=== PATIENT | female | born 2000 | race Caucasian/White ===

== ENCOUNTER 2024-04-04 10:06 | Outpatient (OUT) | payer OTHER, SELFPAY ==
--- NOTE | 2024-04-04 10:21 | XR_ITS ---
[address] [address] Patient Name: CJ MAI MRN: [id number] date: 2000 Sex: F Assigned Patient Location: [facility] Current Patient Location: Accession/Order Number: [id number] Exam Date: 04/04/2024 10:26 Report Date: 04/05/2024 07:55 At the request of: JB MANDUJANO Procedure: XR chest 2V PROCEDURE: XR chest 2V DATE: 04/04/2024 9:26 AM CDT COMPARISONS: None. CLINICAL INDICATION: 23 years Female Positive QuantiFeron TB Test R76.12 FINDINGS: The cardiomediastinal silhouette and pulmonary vasculature are within normal limits. The lungs are clear. There is no evidence of pleural effusion or pneumothorax. XR/XR chest 2V IMPRESSION: Chest radiograph is within normal limits. Electronically authenticated by: ANNA CORTEZ Date: 04/05/2024 07:55
== END 2024-04-04 10:07 | disposition home or self-care (01) ==
LOC: RAD 10:14
PROVIDERS: PCP Family Medicine; Visit Provider Family Medicine
DX: R76.12 Nonspecific reaction to cell mediated immunity measurement of gamma interferon antigen response without active tuberculosis (principal)
CPT/HCPCS: 71046

== ENCOUNTER 2024-05-23 08:28 | Outpatient (OUT) | payer OTHER, SELFPAY ==
--- NOTE | 2024-05-23 08:30 | US_ITS ---
[address] [address] Patient Name: CJ MAI MRN: [id number] date: 2000 Sex: F Assigned Patient Location: [facility] Current Patient Location: Accession/Order Number: [id number] Exam Date: 05/23/2024 08:31 Report Date: 05/27/2024 04:15 At the request of: SHELBI WILLIAM Procedure: US OB transvaginal EXAMINATION: US OB transvaginal HISTORY: Missed menses COMPARISON: No relevant comparison available. FINDINGS: GESTATIONAL SAC: Present and normal appearing x2. YOLK SAC: Present and normal appearing x2. POLE: Present and normal appearing x2. CARDIAC: Present x2. UTERUS: Normal size and appearance. OVARIES: Right: Normal. Left: Normal. CERVIX: 4.0 cm in length and closed. CUL-DE-SAC: Normal. OTHER: None. AGE BY LMP: 8 weeks 6 days GUILLE BY LMP: 12/27/2024 AGE BY US CRL: 8 weeks 6 days x2 GUILLE BY US CRL: 12/27/2024 x2 US/US OB transvaginal IMPRESSION: 1. Diamniotic-dichorionic twin . 2. Estimated gestational age of baby A and baby B is 8 weeks 6 days. Electronically authenticated by: CHAN SMALL Date: 05/27/2024 04:15
== END 2024-05-23 08:29 | disposition home or self-care (01) ==
LOC: NOMS 08:29
PROVIDERS: PCP Family Medicine; Visit Provider Obstetrics & Gynecology
DX: O30.041 Twin pregnancy, dichorionic/diamniotic, first trimester (principal); Z3A.08 8 weeks gestation of pregnancy; N92.6 Irregular menstruation, unspecified
CPT/HCPCS: 76817

== ENCOUNTER 2024-05-24 07:59 | Outpatient (OUT) | payer OTHER, SELFPAY ==
--- OUTSIDE RECORDS SUMMARY | 2024-05-24 08:02 | XMS_ITS | CCD ---
Author Organization [facility] ion [facility] Care Team Providers Care Diamond Blender Name Role Phone Unavailable Primary Care Provider Unavailsoniya e Christina Pearce Unavailable Ok Mckeon Unavailable Ibis Renteria Unavailable [phone] Unavailable Unavailable CARLOS Renteria Primary Care Provider MD Melodie Alcaraz Attending Provider [phone] MD Álvaro Osborn Referring Provider CARLOS Davidson Attending Provider [phone] JOHNNY Pearce Emergency Provider Dr. Annalee Maza Attending Unavailab Dr. Melodie Dawson Referring Unavailable Blas, Ms. Ibis Winter Primary Care Unavail able Dr. Annalee Maza Admitting Unavailab le Unavailable Primary Care Provider Unavailabl e Unavailable Primary Care Provider Unavailsoniya Renteria, TIKA-Akila Winter Primary Care Provider JOHNNY Perez Attending Provider CHAN MUÑIZ Attending Unavailabl e IBIS RENTERIA Referring Unavailable IBIS RENTERIA Primary Care Unavailable IBIS RENTERIA Primary Care Unavailable SPRING UMAÑA Referring Unavailable CHAN MUÑIZ Attending UnavailCARLOS Littlejohn Primary Care Provider DO Carlitos Nguyen Jr Attending Provider Link, Dr. Annalee Torres Attending Unavailab le Link, Dr. Annalee Torres Referring Unavailab le Blas, Ms. Baumann Maggy Primary Care Unavail able Link, Dr. Annalee Torres Attending Unavailab le Link, Dr. Annalee Torres Referring Unavailab le Blas, Ms. Ibis Maggy Primary Care Unavail able Link, Dr. Annalee Torres Attending Unavailab le Alcaraz, Dr. Sewell Referring Unavailable Blas, MsJesika Baumann Maggy Primary Care Unavail able Alcaraz, Dr. Sewell Attending Unavailable Alcaraz, Dr. Sewell Referring Unavailable Blas, MsJesika Baumann Maggy Primary Care Unavail able Link, Dr. Annalee Torres Attending Unavailab le Link, Dr. Annalee Torres Referring Unavailab le Blas, Ms. Ibis Maggy Primary Care Unavail able Alcaraz, Dr. Sewell Attending Unavailable Alcaraz, Dr. Sewell Referring Unavailable Blas, . Ibis Maggy Primary Care Unavail able Tabatha Cota Attending Unavailable Alcaraz, Dr. Sewell Referring Unavailable Blas, Ms. Baumann Maggy Primary Care Unavail able Alcaraz, Dr. Sewell Attending Unavailable Alcaraz, Dr. Sewell Referring Unavailable Blas, Ms. Baumann Maggy Primary Care Unavail able JOSE ARMANDO GREY Attending Unavailable Blas Ibis GOODSON Primary Care Provider Blas, FREIGHT CONDUCTOR-C Ibis Winter Primary Care Provider DO Harsi Martino Emergency Provider DO Nam Barnes Attending Provider PerezChristina kong Admitting Unavailable Christina Perez Attending Unavailable Ibis Renteria Primary Care Unavailable Carlitos Nguyen Jr Admitting Unavailable Carlitos Nguyen Jr Attending Unavailable Ibis Renteria Primary Care Unavailable Nam Barnes Admitting Unavailable Nam Barnes Attending Unavailable Ibis Renteria Primary Care Unavailable Haris Martino Admitting Unavailable Haris Martino Attending Unavailable Ibis Renteria Primary Care Unavailable JB MANDUJANO Primary Care Physician Rinkes, Celeste Admitting Unavailable Rinkes, Celeste Attending Unavailable Jocelin FELIX Attending Unavailable Mae, ADMINISTRATIVE OPERATIONS COORDINATOR Krista L Attending Unavailable Mae, ADMINISTRATIVE OPERATIONS COORDINATOR Krista L Attending Unavailable Unavailable Primary Care Provider Unavailabl e JO, AURORA M Referring Unavailable SANTIAOG, AURORA M Referring Unavailable SANTIAGO, AURORA M Attending Unavailable GEMA, JYOTI Attending Unavailable SANTIAGO, AURORA M Referring Unavailable GEMA, JYOTI Attending Unavailable SANTIAGO, AURORA M Referring Unavailable Rinkes, Celeste Attending Unavailable Rinkes, Celeste Admitting Unavailable Rinkes, Celeste Attending Unavailable Rinkes, Celeste Admitting Unavailable Rinkes, Celeste Attending Unavailable Rinkes, Celeste Admitting Unavailable RINKES, CELESTE E Attending Unavailable RINKES, CELESTE E Attending Unavailable JB MANDUJANO Attending Unavailable JB MANDUJANO Attending Unavailable HEMCAMILLA MCKEON Attending Unavailable Allergies Allergy Classification Reported Allergen(s) Allergy Type Date of Onset Reaction(s) Facility Acetaminophen / oxyCODONE (1 source) Acetaminophen / oxyCODONE; Translations: [acetaminophen-o xycodone] Drug Allergy [facility] Comment on above: no narcotics, GI ups et Chlorhexidine (1 source) Chlorhexidine; Translations: [chlorhexidine topical] Drug Allergy Itching [facility] Corticosteroids (1 source) predniSONE; Translations: [prednisone] Drug Allergy [facility] (11 sources) Morphinan opioid; Translations: [OPIOIDS - MORPHINE ANALOGUES] Propensity to adverse reactions to drug Other: See Comments [facility] (20 sources) predniSONE; Translations: [predniSONE] Drug Allergy Other: See Comments [facility] (2 sources) prednisoLONE Drug Allergy passed out x 2 [employer] Other (15 sources) Fludrocortisone; Translations: [Florinef TABS] Drug Allergy Nausea [facility] 320 DO Work Phone: (7 sources) Midodrine; Translations: [midodrine] Drug Allergy Gatrointestinal upset [facility] 250 DO Work Phone: (1 source) predniSONE Drug Allergy 023 [facility] Repository (2 sources) Acetaminophen / oxyCODONE; Translations: [Percocet] Drug Allergy [facility] Repository (3 sources) Chlorhexidine; Translations: [chlorhexidine topical] Drug Allergy Itching [facility] Repository (1 source) Acetaminophen / oxyCODONE; Translations: [acetaminophen-o xycodone] Drug Allergy [facility] Comment on above: no narcotics, GI ups et Medications Current Medications Medication Drug Class(es) Dates Sig (Normalized) Sig (Original) [id number] 200 actuat albuterol 0.09 mg/actuat metered dose inhaler (6 sources) beta2-Adrenergic Agonist Start: 06-01-2022 take 2 puff(s) by inhalation every six hours as needed albuterol HFA (PROVENTIL HFA, VENTOLIN HFA) 90 mcg/actuation inhaler Inhale 2 Puffs as instructed every 6 hours as needed. 0 06/01/2022 Active Start: 06-01-2022 Albuterol Sulf ate HFA 108 (90 Base) MCG/ACT Inhalation Aerosol Solution Quantity: 8 Refills: 0 Ordered: 26-Jun-2022 DO Start : 01-Jun-2022 Active Comment on above: Inhale 2 Puffs as in structed every 6 hours as needed. Albuterol (Eqv-ProAir HFA) 90 mcg/inh inhalation aerosol (2 sources) Start: 4 take 2 puff(s) by inhalation every four hours Albuterol (Eqv-ProAir HFA) 90 mcg/inh inhalation aerosol 2 puff(s), Inhalation, q4hr, Refill(s) 0 Start Date: 12/11/23 Status: Ordered clomiPHENE citrate 50 mg oral tablet (1 source) Estrogen Agonist/Antagonist Start: 4 CLOMID 50 mg tablet 100 mg. 0 02/22/2024 Active Crutches Underarm Crutches (2 sources) Start: 2 Start: 10-10-2021 Crutches Under arm Crutches 1 pair diagnosis: left ankle sprain Sep, Active Ethinyl Estradiol / norelgestromin (2 sources) Progestin, Estrogen Ortho Evra A ctive Tollette (No Known Home Meds) (1 source) Start: 3 Tollette (No Known Home Meds) Active June 08, 2023 12:00am omeprazole 40 mg delayed release oral capsule (2 sources) Proton Pump Inhibitor Start: 4 take 1 capsule by mouth once daily omeprazole 40 mg Cap-DR 40 mg = 1 cap(s), Oral, Daily, # 30 cap(s), Refills(s) 1, Pharmacy: [facility], 168.3, cm, 12/11/23 13:07:00 EDT, Height/Length Dosing, 93.6, kg, 12/11/23 13:07:00 EDT, Weight Dosing Start Date: 12/11/23 Status: Ordered Completed/Discontinued Medications Medication Drug Class(es) Dates Sig (Normalized) Sig (Original) atenolol 25 mg oral tablet (10 sources) beta-Adrenergic Quentin Start: 07-10-2022 take 0.5 tablet by mouth once daily Atenolol 25 MG Oral Tablet TAKE 0.5 TABLET Daily Quantity: 45 Refills: 1 Ordered: 10-Jul-2022 Melodie Alcaraz MD Start : 10-Jul-2022 Active decreased dose Start: 05-18-2022 End: 06-08-2023 take 25 mg by mouth once daily Atenolol Discontinued 2 5 MG PO Daily June 01, 2022 12:00am June 08, 2023 4:31pm diclofenac sodium 75 mg delayed release oral tablet (3 sources) Nonsteroidal Anti-inflammatory Drug Start: 12-28-2022 End: 07-10-2023 take 1 tablet by mouth twice daily as needed diclofenac, EC, (VOLTAREN) 75 mg EC tablet One tab po bid prn 60 tablet 3 12/28/2022 07/10/2023 Discontinued Comment on above: One tab po bid prn droxidopa 100 mg oral capsule (12 sources) Start: 12-27-2022 End: 07-10-2023 droxidopa (NORTHERA) 100 mg capsule 100 mg three times daily. 0 12/27/2022 07/10/2023 Discontinued Start: 08-01-2022 take 1 capsule by mo [facility] three times daily Droxidopa 100 MG Oral Capsule TAKE 1 CAPSULE 3 times daily Quantity: 270 Refills: 3 Ordered: 13-Oct-2022 Annalee Maza MD Start : 01-Aug-2022 Active Comment on above: 100 mg three times d aily. Norgestimate-Ethiny l Estradiol (4 sources) Progestin, Estrogen Start: 06-01-2022 End: 06-08-2023 take 1 tablet by mouth once daily Norgestimate-Ethinyl Estradiol (Trisha) 0.25-35 mg-mcg tablet Discontinued 1 TAB PO Daily June 01, 2022 12:00am June 08, 2023 4:31pm Start: 06-01-2022 take 1 tablet by efrain once daily Norgestimate-Ethinyl Estradiol (Trisha) 0.25-35 mg-mcg tablet Active 1 TAB PO Daily June 01, 2022 12:00am fludrocortisone acetate 0.1 mg oral tablet (2 sources) Start: 06-15-2022 take 1 tablet by mouth once daily Fludrocortisone Acetate 0.1 MG Oral Tablet Take 1 tablet daily Quantity: 90 Refills: 3 Ordered: 15-Jun-2022 Melodie Alcaraz MD Start : 15-Jun-2022 Active new start 120 actuat fluticasone propionate 0.11 mg/actuat metered dose inhaler (4 sources) Corticosteroid Start: 06-01-2022 Flovent HFA 110 MCG/ACT Inhalation Aerosol Quantity: 12 Refills: 0 Ordered: 29-Jun-2022 DO Start : 01-Jun-2022 Active folic acid 1 mg oral tablet (4 sources) Start: 07-31-2022 End: 12-28-2022 take 1 tablet by mouth once daily folic acid 1 mg tablet Take 1 tablet by mouth once daily. 30 tablet 6 07/31/2022 12/28/2022 Discontinued Comment on above: Take 1 tablet by efrain once daily. hydroxychloroquine sulfate 200 mg oral tablet (6 sources) Antimalarial, Antirheumatic Agent Start: 02-02-2022 Hydroxychloroquine Sulfate 200 MG Oral Tablet Quantity: 60 Refills: 0 Ordered: 07-Mar-2022 DO Start : 02-Feb-2022 Active Start: 02-02-2022 End: 07-31-2022 take 1 tablet by mouth twice daily hydrOXYchloroQUINE (PLAQUENIL) 200 mg tablet Take 1 tablet by mouth twice daily. 60 tablet 3 02/02/2022 07/31/2022 Discontinued (Allergic response) Comment on above: Take 1 tablet by efrain th twice daily. magnesium oxide 400 mg oral tablet (1 source) Start: 3 take 1 tablet by mouth once daily Magnesium Oxide 400 MG Oral Tablet take 1 tablet by mouth once daily Quantity: 30 Refills: 6 Ordered: 13-Jun-2023 Tabatha Savage Start : 13-Jun-2023 Active methotrexate 2.5 mg oral tablet (4 sources) Folate Analog Metabolic Inhibitor Start: 2 take 6 tablets by mouth every week Methotrexate 2.5 MG Oral Tablet TAKE 6 TABLETS WEEKLY. Quantity: 0 Refills: 0 Ordered: 11-Sep-2022 DO Start : 11-Sep-2022 Active Start: 07-31-2022 End: 12-28-2022 take 4 tablets by mouth every week, then take 6 tablets by mouth every week methotrexate 2.5 mg tablet TAKE 4 TABS PO QWK FOR 2WKS THEN INCREASE TO 6 TABS PO QWK 25 tablet 2 07/31/2022 12/28/2022 Discontinued Comment on above: TAKE 4 TABS PO QWK F OR 2WKS THEN INCREASE TO 6 TABS PO QWK midodrine hydrochloride 5 mg oral tablet (13 sources) alpha-Adrenergic Agonist Start: 07-10-2022 Midodrine HCl - 5 MG Oral Tablet Quantity: 90 Refills: 0 Ordered: 06-Aug-2022 DO Start : 10-Jul-2022 Active Start: 07-10-2022 take 0.5 tablet by m out three times daily Midodrine HCl - 10 MG Oral Tablet TAKE 0.5 TABLET 3 TIMES DAILY Quantity: 135 Refills: 3 Ordered: 01-Aug-2022 Annalee Maza MD Start : 10-Jul-2022 Active Start: 07-10-2022 take 1 tablet by efrain th three times daily Midodrine HCl - 10 MG Oral Tablet TAKE 1 TABLET 3 TIMES DAILY. Quantity: 270 Refills: 3 Ordered: 21-Jul-2022 Annalee Maza MD Start : 17-Oct-2022 Active Dose increase Start: 07-10-2022 take 1 tablet by efrain th three times daily Midodrine HCl - 5 MG Oral Tablet TAKE 1 TABLET 3 TIMES DAILY. Quantity: 270 Refills: 3 Ordered: 10-Jul-2022 Melodie Alcaraz MD Start : 10-Jul-2022 Active stop tip Trisha 0.25-35 MG-MCG Oral Tablet (20 sources) take 1 tablet by mouth once daily Trisha 0.25-35 MG-MCG Oral Tablet TAKE 1 TABLET DAILY DIRECTED. Quantity: 0 Refills: 0 Ordered: 23-Mar-2022 DO Active montelukast 10 mg oral tablet (4 sources) Leukotriene Receptor Antagonist Start: 11-18-19 take 1 tablet by mouth once daily Montelukast Sodium 10 MG Oral Tablet TAKE 1 TABLET BY MOUTH EVERY DAY FOR 30 DAYS Quantity: 30 Refills: 0 Ordered: 14-Dec-2021 DO Start : 18-Nov-2021 Active prednisoLONE 5 mg oral tablet (3 sources) Corticosteroid End: 07-31-20 take 1 tablet by mouth once daily prednisoLONE (MILLIPRED DP) 5 mg (21 tabs) DsPk Take 5 mg by mouth once daily. 0 07/31/2022 Discontinued (Other) Comment on above: Take 5 mg by mouth o nce daily. triamcinolone acetonide 0.001 mg/mg topical ointment (4 sources) Corticosteroid Start: 11-30-19 Triamcinolone Acetonide 0.1 % External Ointment Quantity: 80 Refills: 0 Ordered: 29-Nov-2021 DO Start : 29-Nov-2021 Active Problems Active Problems Problem Classification Problem Date Documented Date Episodic/Chronic Administrative/socia l admission (20 sources) Follow-up status; Translations: [Other specified counseling] Episodic Asthma (16 sources) Mild intermittent asthma; Translations: [Asthma, unspecified type, unspecified] Chronic Cardiac dysrhythmias (20 sources) Ventricular premature beats; Translations: [Other premature beats] 11-30-2023 Chronic Cardiac dysrhythmias (20 sources) Palpitations; Translations: [Palpitations] 06-16-2023 Episodic Conduction disorders (2 sources) Unspecified right bundle-branch block; Translations: [Unspecified right bundle-branch block] Onset: 07-26-2022 Chronic Esophageal disorders (2 sources) Gastroesophageal reflux disease 12-11-2023 Chronic Influenza (4 sources) Influenza due to Influenza A virus; Translations: [Influenza due to other identified influenza virus with other respiratory manifestations] 06-01-2022 Episodic Joint disorders and dislocations; trauma-related (2 sources) Tear of medial meniscus of knee 07-26-2021 Episodic Nonspecific chest pain (20 sources) Atypical chest pain; Translations: [Other chest pain] Onset: 06-08-2023 06-16-2023 Episodic Osteoarthritis (1 source) Arthritis; Translations: [Unspecified osteoarthritis, unspecified site] Chronic Other aftercare (16 sources) Treatment changed; Translations: [Long-term (current) use of other medications] Episodic Other circulatory disease (18 sources) Low blood pressure; Translations: [Hypotension, unspecified] Episodic Other circulatory disease (17 sources) Orthostatic hypotension; Translations: [Orthostatic hypotension] 11-12-2023 Episodic Other connective tissue disease (2 sources) Tendinitis of right posterior tibial tendon; Translations: [Posterior tibial tendinitis, right leg] Episodic Other connective tissue disease (1 source) Disorder of tendon; Translations: [Unspecified disorder of synovium and tendon, unspecified thigh] 07-10-2023 Episodic Other connective tissue disease (1 source) Unspecified disorder of synovium and tendon, unspecified thigh; Translations: [Tendinopathy of gluteal region] Onset: 07-10-2023 Episodic Other infections; including parasitic (20 sources) Personal history of other infectious and parasitic diseases; Translations: [Personal history of COVID-19] Episodic Other lower respiratory disease (20 sources) Dyspnea; Translations: [Other respiratory abnormalities] Episodic Other nervous system disorders (1 source) Other chronic pain; Translations: [Chronic pain of right knee] Onset: 07-10-2023 Chronic Other non-traumatic joint disorders (6 sources) Pain in right knee; Translations: [Pain in joint, lower leg] Onset: 07-10-2023 Episodic Other non-traumatic joint disorders (3 sources) Joint stiffness; Translations: [Stiffness of unspecified joint, not elsewhere classified] Episodic Other nutritional; endocrine; and metabolic disorders (20 sources) Obesity; Translations: [Obesity, unspecified] Chronic Other screening for suspected conditions (not mental disorders or infectious disease) (20 sources) Pulmonary function studies abnormal; Translations: [Nonspecific abnormal results of pulmonary function study] Episodic Superficial injury; contusion (7 sources) Contusion of elbow; Translations: [Contusion of unspecified elbow, initial encounter] 09-20-2019 Episodic Past or Other Problems Problem Classification Problem Date Documented Da te Episodic/Chronic Other non-traumatic joint disorders (1 source) Pain in left ankle and joints of left foot Onset: 10-10-2021 Resolved: 10-10-2021 Episodic Other skin disorders (1 source) Rash and other nonspecific skin eruption Onset: 01-10-2022 Resolved: 01-10-2022 Episodic Residual codes; unclassified (1 source) Transient alteration of awareness; Translations: [Transient alteration of awareness] Onset: 11-12-2023 Episodic Sprains and strains (1 source) Sprain of unspecified ligament of left ankle, initial encounter Onset: 10-10-2021 Resolved: 10-10-2021 Episodic Syncope (20 sources) Syncope; Translations: [Syncope and collapse] Onset: 06-12-2022 Episodic Unclassified (20 sources) Never smoked tobacco; Translations: [Never a smoker] Unclassified (20 sources) Patient status finding; Translations: [Patient new to provider] Resolved: 09-11-2022 Results Test Name Value Interpretation Reference Range Facility CHEMISTRYOrdered By: SYSTEM SYSTEM on 04-12-2024 Progesterone Lvl 31.70 ng/mL Invalid Interpretation Code [facility] Comment on above: Result Comment: 'F N ON FOLLICULAR = 0.10 - 0.60' 'LUTEAL = 3.00 - 17.5' 'MIDLUTEAL = 3.30 - 18.6' 'POST-MENOPAUSE = 0.10 - 0.40' '-FIRST TRIMESTER = 8.30 - 66.5' 'SECOND TRIMESTER = 18.9 - 66.1' 'THIRD TRIMESTER = 35.8 - 312.4' 'MALES = 0.14 - 2.06' Progesteroneon 04-12-2024 Progesterone Lvl 31.70 ng/mL Invalid Interpretation Code [facility] Comment on above: Result Comment: 'F N ON FOLLICULAR = 0.10 - 0.60' 'LUTEAL = 3.00 - 17.5' 'MIDLUTEAL = 3.30 - 18.6' 'POST-MENOPAUSE = 0.10 - 0.40' '-FIRST TRIMESTER = 8.30 - 66.5' 'SECOND TRIMESTER = 18.9 - 66.1' 'THIRD TRIMESTER = 35.8 - 312.4' 'MALES = 0.14 - 2.06' Performed By: #### [id number] #### [facility] [address] [place] [address] CHEMISTRYOrdered By: SYSTEM SYSTEM on 03-14-2024 Progesterone Lvl 16.15 ng/mL Invalid Interpretation Code [facility] Comment on above: Result Comment: 'F N ON FOLLICULAR = 0.10 - 0.60' 'LUTEAL = 3.00 - 17.5' 'MIDLUTEAL = 3.30 - 18.6' 'POST-MENOPAUSE = 0.10 - 0.40' '-FIRST TRIMESTER = 8.30 - 66.5' 'SECOND TRIMESTER = 18.9 - 66.1' 'THIRD TRIMESTER = 35.8 - 312.4' 'MALES = 0.14 - 2.06' Consent for Treatmenton 02-23 Consent for Treatment [id number] Normal [facility] Physician Orderon 03-14-2024 Physician Order [id number]#1.00TIFF Normal [facility] Progesteroneon 03-14-2024 Progesterone Lvl 16.15 ng/mL Invalid Interpretation Code [facility] Comment on above: Result Comment: 'F N ON FOLLICULAR = 0.10 - 0.60' 'LUTEAL = 3.00 - 17.5' 'MIDLUTEAL = 3.30 - 18.6' 'POST-MENOPAUSE = 0.10 - 0.40' '-FIRST TRIMESTER = 8.30 - 66.5' 'SECOND TRIMESTER = 18.9 - 66.1' 'THIRD TRIMESTER = 35.8 - 312.4' 'MALES = 0.14 - 2.06' Performed By: #### [id number] #### [facility] [address] [place] [address] Ambulatory Visit Summaryon 0 12-11-2023 Ambulatory Visit Summary MADYSON MAI :2000 Visit Date:12/11/2023 Ambulatory Visit Instructions Your Diagnosis Acid reflux BMI 33.0-33.9,adult Class 1 obesity due to excess calories in adult Nonsmoker Your Care Team Attending Physician - Krista Daley Primary Care Physician - Krista Daley This Is Your Medications List albuterol (Albuterol (Eqv-ProAir HFA) 90 mcg/inh inhalation aerosol) Procedures Performed Arthroscopy of knee (08/05/2021), Cryotherapy of warts, Tonsillectomy and adenoidectomy. Discharge Vitals Temperature (Temporal Artery) 37.0 ?C Heart Rate (Peripheral) 80 Respiratory Rate 16 Blood Pressure 108/66 Height 168.3 cm Height 66 in Weight 93.6 kg Weight 205.92 lb BMI 33.05 What to do next Scheduled Follow-Up Appointments Sunday 11:20 AM EDT With: Krista Daley Where: [facility] [place]al Normal [facility] Medicine Office/Clini c Noteon 12-11-2023 Family Medicine Office/Clinic Note HPI Staff Madyson is a 23 year old female presenting to establish care Establish Care: History: Any previous diagnosis: POTS (11/30/23) History of seeing any specialist: Jyoti Dickey [facility] for the POTS,, 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 Also when done eating feels full but then 5 minutes later she's hungry again, she ? thyroid Current issues/complaints: History of Present Illness pt presents today c/o mid epigastric pain. when eating feels full then a few minutes later she is full Review of Systems PHQ Score Initial Depression Screen Score: 1 SCORE Physical Exam Vitals & Measurements T: 37.0 ?C(Temporal Artery) HR: 80(Peripheral) RR: 16 BP: 108/66 SpO2: 98% HT: 66 in HT: 168.3 cm WT: 93.6 kg WT: 205.92 lb BMI: 33.05 General: alert, no acute distress ENMT: oral mucosa moist, no pharyngeal erythema or exudate Cardiovascular: regular rate and rhythm, normal peripheral perfusion Respiratory: Lungs CTA, respirations non labored Extremities: no deformity, no trauma Neurological: oriented x 4, LOC appropriate for age, CN II-XII intact, motor strength equal & normal bilaterally, speech normal Assessment/Plan 1. Acid reflux (K21.9: Gastro-esophageal reflux disease without esophagitis) c/o mid epigastric pain. when she eats she gets full fast then 5 minutes later feels hungry again. will order omeprazole. pt to return in 4 weeks. if no improvement will refer to GI. RTC 4 weeks. Ordered: omeprazole, 40 mg = 1 cap(s), Oral, Daily, # 30 cap(s), Refills(s) 1, Pharmacy: [facility], 168.3, cm, 12/11/23 13:07:00 EDT, Height/Length Dosing, 93.6, kg, 12/11/23 13:07:00 EDT, Weight Dosing 2. BMI 33.0-33.9,adult (Z68.33: Body mass index [BMI] 33.0-33.9, adult) BMI education complete Ordered: omeprazole, 40 mg = 1 cap(s), Oral, Daily, # 30 cap(s), Refills(s) 1, Pharmacy: [facility], 168.3, cm, 12/11/23 13:07:00 EDT, Height/Length Dosing, 93.6, kg, 12/11/23 13:07:00 EDT, Weight Dosing 3. Class 1 obesity due to excess calories in adult (E66.09: Other obesity due to excess calories) see above Ordered: omeprazole, 40 mg = 1 cap(s), Oral, Daily, # 30 cap(s), Refills(s) 1, Pharmacy: [facility], 168.3, cm, 12/11/23 13:07:00 EDT, Height/Length Dosing, 93.6, kg, 12/11/23 13:07:00 EDT, Weight Dosing 4. Nonsmoker (Z78.9: Other specified health status) continue not smoking Ordered: omeprazole, 40 mg = 1 cap(s), Oral, Daily, # 30 cap(s), Refills(s) 1, Pharmacy: [facility], 168.3, cm, 12/11/23 13:07:00 EDT, Height/Length Dosing, 93.6, kg, 12/11/23 13:07:00 EDT, Weight Dosing Follow-up No qualifying data available Problem List/Past Medical History Ongoing Acid reflux Historical No qualifying data Procedure/Surgical History Arthroscopy of knee (08/05/2021), Cryotherapy of warts, Tonsillectomy and adenoidectomy. Medications Albuterol (Eqv-ProAir HFA) 90 mcg/inh inhalation aerosol, 2 puff(s), Inhalation, q4hr omeprazole 40 mg Cap-DR, 40 mg= 1 cap(s), Oral, Daily, 1 refills Allergies Percocet chlorhexidine topical (Itching) predniSONE Social History Alcohol - Denies Alcohol Use, 07/26/2021 Substance Abuse - Denies Substance Abuse, 07/26/2021 Tobacco - Denies Tobacco Use, 07/26/2021 Never (less than 100 in lifetime) Tobacco Use:., 12/11/2023 Family History Heart murmur: Brother. Hypertension: Brother. Immunizations Vaccine Date Status Comments influenza virus vaccine, inactivated 07/05/2023 Recorded SARS-CoV-2 (COVID-19) mRNA BNT-162b2 vax 01/14/2021 Recorded 2023-12-11: TPVAL SARS-CoV-2 (COVID-19) mRNA BNT-162b2 vax 12/24/2020 Recorded 2023-12-11: TPVAL meningococcal conjugate vaccine 12/11/2017 Recorded human papillomavirus vaccine 06/26/2014 Recorded diphtheria/pertussis, acel/tetanus adult 04/20/2014 Recorded meningococcal conjugate vaccine 04/20/2014 Recorded human papillomavirus vaccine 04/20/2014 Recorded poliovirus vaccine, inactivated 12/27/2006 Recorded measles/mumps/rubella/shania icella vaccine 12/27/2006 Recorded DTaP, unspecified formulation 12/27/2006 Recorded varicella virus vaccine 02/06/2003 Recorded measles/mumps/rubella virus vaccine 02/06/2003 Recorded Hib, unspecified formulation 02/06/2003 Recorded DTaP, unspecified formulation 02/06/2003 Recorded poliovirus vaccine, inactivated 07/02/2002 Recorded Hib, unspecified formulation 07/02/2002 Recorded DTaP, unspecified formulation 07/02/2002 Recorded poliovirus vaccine, inactivated 05/19/2002 Recorded DTaP, unspecified formulation 05/19/2002 Recorded poliovirus vaccine, inactivated 03/05/2002 Recorded DTaP, unspecified formulation 03/05/2002 Recorded (more content not included)... Normal [facility] Comment on above: Result Comment: Elec tronically Signed By: Krista Daley\.br\Date and Time Signed: 12/11/23 13:32 EDT CNOVon 11-30-2023 CNOV Office Visit (NENMMN ) ----- PAUMADYSON Charlton ([id number]) 2 F Date Time Provider Department 11/30/23 10:00 AM JYOTI DICKEY NEDCARRON During your visit today, we recorded the following information about you: Pulse Blood pressure Weight Height 84/minute 118/79 93 kg 1.651 m Jyoti Dickey PA-C 11/30/2023 11:14 AM Signed [facility] New Patient Evaluation Madyson Mai is a 22 year old right handed female. Patient presents with: New Patient Consult Madyson Mai is referred in consultation by Aurora Santiago PA-C for POTS. Final recommendations will be communicated to the requesting physician by way of a letter. PMH: - obesity Neurology, Aurora Santiago PA-C 10/10/2023: IMPRESSION/PLAN: (R40.4) Transient alteration of awareness (primary encounter diagnosis) (R55) Syncope, unspecified syncope type Madyson Schmid is a 22 year old female with history of Orthostatic intolerance, right knee patellofemoral pain, obesity. Chari presents to the office today for concerns of episodes of syncope with loss of awareness/consciousness, feeling disoriented, 2 episodes associated with bladder incontinence. She has reported total 4 episodes of syncope since 2020. Her last episode of syncope was April 2023 She does not have any positional dizziness, presyncope, or syncope associated with changing positions. She does not have any sensation of passing out if she is standing for prolonged period Of time. She reports shortness of breath, tightness in chest, chest pain. She has been seen by various providers locally in her area and was worked up for POTS concerns and was treated with various medications including beta-quentin/atenolol no benefit, Florinef caused GI side effects, midodrine caused GI side effects, droxidopa no benefits GI side effects and had no benefits Her neurological exam is unremarkable/nonfocal. Her orthostatics in office are negative for hypotension or tachycardia We will get tilt table test, Holter monitor for 2 weeks, echocardiogram, EEG prolonged and review results after testing. She will schedule a visit with neuromuscular for management of syncope, POTS or orthostatic hypotension. (Since she has failed various medications they can help better with medical decision making). Today: Patient presents today for evaluation of POTS. 2020 had knee surgery and then passed out when she was using crutches. She was standing when she began to experience lightheadednes, dizziness, and tunnel vision. Experienced LOC and patient believes she was out for a few seconds. Witnessed by gigi who reports no convulsions, lost control of bladder, no mouth maceration. Did not go to the ER, reports that she felt hot and cold after and mildly confused. Within around 20 minutes patient was able to recover. September 2021 woke up in the middle of the night. Began to feel confused and experienced LOC while walking up the stairs. [place] prodromal symptoms including lightheadedness and tunnel vision. LOC unwitnessed, loss of bladder, no mouth maceration. Regained consciousness a few moments later where she was helped up and she went back to bed. March 2022. On vacation and she stood up in the middle of the night to use the bathroom. After washing hands experienced tunnel vision, dizziness, and lightheadedness. Experienced LOC which was heard by family who found her in on the bathroom floor. No loss of bowel or bladder, no mouth maceration. Following LOC patient was helped to bed and felt fatigued for around 30 minutes following event. April 2023 was at a doctors office getting lab work done. Had blood drawn, shortly after patient began to experience tunnel vision, lightheadedness, and dizziness and experienced LOC. Loc occurred for a few seconds. No convulsions, no loss of bowel or bladder, no mouth maceration. Confusion following event for around 20 minutes - was able to drive home and return to baseline. When not experiencing an episode - nausea - dizziness - lightheadedness - fatigue - tremor - chest pain - HR and BP fluctuations - headaches Was evaluated by cardiology in the past who completed holter monitor, echo, EKG and tilt - workup normal. Autonomic Screening Do you become dizzy or lightheaded with standing? Occasionally Do you notice your heart racing (tachycardia) with postural change? + Do you have syncope? + In the past month, did you have any falls? - How long can you stand (in minutes) before becoming symptomatic? Anytime Are symptoms worse after consuming a meal? + Are symptoms alleviated by sitting/laying down? + Autonomic check list: YES (Y) or NO (N) Dry mouth: - Dry eyes: - Change in sweat: + more Constipation: - Abdominal Bloating with shortly after eating: - Fluctuation of diarrhea and constipation: - Urination: + (more content not included)... Normal [facility] ECHOon 11-12-2023 Echocardiography Echocardiography Rep ort: Transthoracic Echo [facility] A17 Date of service: 11/12/2023 1:08:10 PM SUPPORT REPRESENTATIVE Ordering physician: AURORA SANTIAGO Indication: Initial evaluation valvular heart disease Technologist: Lina Hernandez Interpreting physician: Ignacio Prater MD PATIENT: Name: MRS. MADYSON MAI : 2000 Age: 22 years Gender: F Primary rhythm: sinus. Height: 165.10 cm BSA: 2.07 m Weight: 92.99 kg BMI: 34.1 kg/m Heart rate 80 bpm Blood pressure 119/85 mmHg Color Doppler was utilized to interrogate the cardiac valves assessed and spectral Doppler was utilized to determine the flow velocities and pressure gradients reported in this exam. Myocardial strain analysis was performed in this exam to aid in the assessment of cardiac function. MEASUREMENTS: Value Indexed Normal Max aortic dimension 2.6 cm Ao < 3.8 Left atrial volume 38 ml (biplane A-L) 19 ml/m Flaquita <= 34 LV ID (diastole) 5.0 cm (2D) 2.42 cm/m LV ID (systole) 3.3 cm (2D) 1.60 cm/m IVS, leaflet tips 0.7 cm (2D) Posterior wall thickness 0.9 cm (2D) Left ventricular mass 136 g (2D) 66 g/m Global peak long strain -18.8 % LV stroke volume 53 ml (2D biplane) LV end diastolic volume 88 ml (2D biplane) 42.8 ml/m 29<=EDVi<62 LV end systolic volume 36 ml (2D biplane) 17.4 ml/m Ejection Fraction 59 % (2D biplane) EF > 54 FINDINGS: LEFT VENTRICLE The left ventricle is normal in size. Left ventricular systolic function is normal. Global LV myocardial strain is normal. Normal left ventricular diastolic function. Mitral annular lateral E/e': 3.0. Mitral annular septal E/e': 5.7. Wall Motion: All scored segments are normal. RIGHT VENTRICLE The right ventricle is normal in size. Right ventricular systolic function is normal. RV systolic tissue Doppler velocity is 15.1 cm/s. Tricuspid annular displacement is 2.5 cm. Estimated right ventricular systolic pressure is not reported due to an insufficient tricuspid regurgitation signal. Estimated right atrial pressure is 3 mmHg based on IVC assessment. LEFT ATRIUM The left atrial cavity is normal in size. Pulmonary Veins: The pulmonary venous pattern showed normal systolic flow. RIGHT ATRIUM The right atrial cavity is normal in size. Inferior Vena Cava: The inferior vena cava appears normal measuring 1.4 cm. The vessel decreases greater than 50 percent with inspiration. MITRAL VALVE There is trace mitral valve regurgitation. There is no thickening. The pressure half time is 69 msec. The peak mitral E/A ratio is 1.37. The average mitral E/e' ratio is 4.4. The mitral flow deceleration time is 238 msec. TRICUSPID VALVE The tricuspid valve leaflets are structurally normal. There is trace tricuspid valve regurgitation. AORTIC VALVE There is no aortic valve regurgitation. Tricuspid aortic valve. There is no thickening. The peak gradient is 5 mmHg (peak velocity = 107.0 cm/s). PULMONIC VALVE The pulmonic valve cusps are structurally normal. There is trace (trace - 1+) pulmonic valve regurgitation. AORTA The visualized aorta is normal in size. Measurements - Mid ascending aorta 2.6 cm. PULMONARY ARTERIES The pulmonary arteries are normal. INTERATRIAL SEPTUM There is no evidence of intracardiac shunting as detected by Doppler. INTERVENTRICULAR SEPTUM There is no flow through the interventricular septum as detected by Doppler. PERICARDIUM There is no pericardial effusion. CONCLUSIONS: - Exam indication: Initial evaluation valvular heart disease - The left ventricle is normal in size. Left ventricular systolic function is normal. EF = 59 5% (2D biplane) - The right ventricle is normal in size. Right ventricular systolic function is normal. - There are no significant valvular abnormalities. - The patient has not had a prior CC echocardiographic exam for comparison. * * * Final * * * CC [employer] [facility] Image : [id number] Normal [facility] CNOVon 10-10-2023 CNOV Office Visit (NEADMN ) ----- PAUMADYSON ([id number]) 2 F Date Time Provider Department 10/10/23 2:00 PM AURORA SANTIAGO During your visit today, we recorded the following information about you: Pulse Blood pressure Weight Height 108/minute 119/85 93 kg 1.651 m Aurora Santiago PA-C 10/10/2023 4:33 PM Signed [facility] New Patient Evaluation CHIEF COMPLAINT: to rule out autonomic disorder Madyson Schmid is a 22 year old female with history of Orthostatic intolerance, right knee patellofemoral pain, obesity. She is accompanied by -bambi and mother in law-Fifi. Self referred HPI: As per chart review: Seen by cardiology of episodes of syncope 3 episodes of syncope in March 2021, July 2021, and October 2021. -1 episode occurred after she had gotten up at 6:30 in the morning in the RV to go to the bathroom. She felt a little funny as she was getting ready to wash her hands and then she found her self down on the bathroom floor. She reports being panic as she found her self on the floor. She cannot recall any other symptoms. -Second episode occurred when she was walking up the stairs. -The third episode occurred on postop day #0 after she had knee surgery for knee pain. Findings from surgery were scar tissue per her report She can feel dizzy, hot, or lightheaded if she stands for long period of time Prior work up: Abnormal tilt table test, with a combination of cardioinhibitory and vasodepressive episode, she had low blood pressure and a heart rate of 34 6 minutes post sublingual nitroglycerin. Severe orthostatic hypotension with a blood pressure drop from 99 systolic to 72 systolic and heart rate increased from 62-122 Stress echocardiogram April 2022-normal good exercise tolerance appropriate hemodynamic response to exercise LVEF 55% no mitral regurgitation or LVOT obstruction at peak exercise hyperdynamic LV with ejection fraction of 85% patient exercised for 12 minutes and achieved 98% of her age-predicted maximum heart rate. Test was terminated due to fatigue. Echocardiogram April 2022-normal chamber dimensions normal LV function RV systolic pressure 70 mmHg LV wall thickness and chamber dimensions normal left atrial diameter 3.5 cm 30-day event monitor March 2022-39 patient triggered episodes all corresponded to normal sinus rhythm in the 70s and 80s and occasionally sinus tachycardia. No bradycardia dysrhythmias. Palpitations sometimes corresponded to sinus tachycardia overall the symptoms are very frequent with paucity of objective findings on the monitor 01/25/2022: CBC CMP ARMANI RA ESR CRP Unremarkable Today:10/10/2022: Main issues: Episodes of passing out SOB and chest tightness Episodes of passing out: Onset Jul 2021 4 episodes in total Description: Starts to feel sweaty and hot, vision goes black, finds herself on the floor, feels disoriented to where she is at and cannot recall what happened, she feels she has passed out for long time, but witness feels its was few seconds up to 20 seconds, and then does not feel right for the rest of the day -first episodes jul 2021-she was walking up the stairs and fell down and passed out, bladder loss -second episode-was in bathroom-jul 2021 passing urine-passed out, loss of bladder -third episodes-March 2022-she had used her bathroom and fell down and passed -last episodes was 04/25/2023-reports she was fasting for blood draw and passed out as blood was being drawn, no bladder loss -No shaking reported -No tongue bite -Bladder incontinence x 2 in the total 4 episodes No Dizziness with change in position No GI issues SOB, tightness of breathing and Chest pain: Onset 2021 SOB everyday Happens randomly, not related to activity, not related to change in position Lasts for hours Has left sided chest pain, happens randomly, not related to activity, almost every day, lasts up to couple of hours Sensations of heart beat gone missing No palpitations -No dizziness or pre-syncope like feeling with change in position from sitting to standing or from laying down to sitting -No falls -No pre syncope like symptoms in between described episodes of syncope -No GI issues-no constipation, diarrhea, no bloating -No dry mouth or dry eyes -No tingling numbness in extremities Hx of head/neck trauma? no Hx of severe viral illness? no Hx of autoimmune disease? no History of emotional or physical abuse? No. Grew up between mother and maternal grand parents No h/o anxiety depression or panic attack No prior history of epilepsy, febrile Sz in childhood Tried various medications: BB(atenolol)-no benefit Florinef caused GI upset Midodrine intolerance and GI upset Droxidopa 100 mg tid-most recently prescribed-did not tolerate-GI side effects She is not on BC (more content not included)... Normal [facility] Quantiferon-TB Plus (Client Incubated)on 07-26-2023 Gamma interferon background IA Qn (Bld) 0.01 International_Unit/mL Invalid Interpretation Code [facility] Comment on above: Performed By: #### 1 [id number] #### [facility] [address] [place] [address] M. tuberculosis stim IFN-g by CD4+ CD8+ T-cells Qn (Bld) 0.30 International_Unit/mL Invalid Interpretation Code [facility] Comment on above: Performed By: #### 1 [id number] #### [facility] [address] [place] [address] M. tuberculosis stim IFN-g by CD4+ T-cells Qn (Bld) 0.23 International_Unit/mL Invalid Interpretation Code [facility] Comment on above: Performed By: #### 1 [id number], [id number] #### [facility] [address] [place] [address] M. tuberculosis stim IFN-g Ql (Bld) [Interp] Negative Invalid Interpretation Code Negative [facility] Comment on above: Result Comment: No r esponse to M tuberculosis antigens detected. Infection with M tuberculosis is unlikely, but high risk individuals should be considered for additional testing (ATS/IDSA/CDC Clinical Practice Guidelines, 2017). The reference range is an Antigen minus Nil result of <0.35 IU/mL. The specimen received for QuantiFERON testing was incubated by the ordering institution. Specific procedures outlined in our Directory of Services and in the package insert for the QuantiFERON Gold (In Tube) test must be followed to enable for proper stimulation of cells for the production of interferon gamma. Chemiluminescence immunoassay methodology Performed at: [facility] [id number] PhD Rubio Vinson Performed By: #### 1 [id number], [id number] #### [facility] [address] [place] [address] Mitogen stimulated gamma interferon Qn (Bld) >10.00 Invalid Interpretation Code [facility] Comment on above: Performed By: #### 1 [id number], [id number] #### [facility] [address] [place] [address] Service comment (Unsp spec) [Interp] Comment Invalid Interpretation Code [facility] Comment on above: Result Comment: Link tiFERON-TB Gold Plus is a qualitative indirect test for M tuberculosis infection (including disease) and is intended for use in conjunction with risk assessment, radiography, and other medical and diagnostic evaluations. The QuantiFERON-TB Gold Plus result is determined by subtracting the Nil value from either TB antigen (Ag) value. The Mitogen tube serves as a control for the test. Performed By: #### 1 [id number], [id number], [id number], [id number] #### [facility] [address] [place] [address] Hep Bs Abon 07-25-2023 HBV surface Ab Ql (S) Non-Reactive Invalid Interpretation Code [facility] Comment on above: Result Comment: Non Reactive: Inconsistent with immunity, less than 10 mIU/mL Reactive: Consistent with immunity, greater than 9.9 mIU/mL Performed at: [facility] [id number] PhD Rubio Vinson Performed By: #### 1 [id number], [id number] #### [facility] [address] [place] [address] Measles/Mumps/Rubella Immuni tyon 07-25-2023 MeV IgG IA Qn (S) 34.3 A unit/mL Invalid Interpretation Code Immune >16.4 [facility] Comment on above: Result Comment: Nega tive <13.5 Equivocal 13.5 - 16.4 Positive >16.4 Presence of antibodies to Rubeola is presumptive evidence of immunity except when acute infection is suspected. Performed By: #### 1 [id number], [id number], [id number], [id number] #### [facility] [address] [place] [address] MuV IgG IA Qn (S) <9.0 Low Immune >10.9 [facility] Comment on above: Result Comment: Nega tive <9.0 Equivocal 9.0 - 10.9 Positive >10.9 A positive result generally indicates past exposure to Mumps virus or previous vaccination. Performed at: [facility] [id number] PhD Rubio Vinson Performed By: #### 1 [id number], [id number], [id number] #### [facility] [address] [place] [address] Rubella virus IgG Qn (S) 1.53 [IU]/mL Invalid Interpretation Code Immune >0.99 [facility] Comment on above: Result Comment: Non- immune <0.90 Equivocal 0.90 - 0.99 Immune >0.99 Performed By: #### 1 [id number], [id number], [id number] #### [facility] [address] [place] [address] Varic IgGon 07-25-2023 VZV IgG IA Qn (S) 475 Invalid Interpretation Code Immune >165 [facility] Comment on above: Result Comment: Nega tive <135 Equivocal 135 - 165 Positive >165 A positive result generally indicates exposure to the pathogen or administration of specific immunoglobulins, but it is not indication of active infection or stage of disease. Performed at: [facility] [id number] PhD Rubio Vinson Performed By: #### 1 [id number], [id number], [id number], [id number] #### [facility] [address] [place] [address] CNOVon 07-10-2023 CNOV Office Visit (ORFWHP ) ----- MADYSON SCHMID ([id number]) 2 F Date Time Provider Department 07/10/23 9:40 AM JOSE ARMANDO GREY ORFWHP During your visit today, we recorded the following information about you: Jose Armando Grey DO 07/10/2023 10:08 AM Signed [facility] Office Visit Documentation Note [facility] [place] HISTORY OF PRESENT ILLNESS (HPI) CHIEF COMPLAINT / REASON FOR VISIT SERVICE DATE: July 10, 2023 PCP: No primary care provider on file. Madyson Schmid is here today at request of Dr. Jose Armando Schmid specifically for consultation of my opinion in regards to the chief complaint listed below. Correspondence will be shared today via the [facility] electronic health record or through regular mail, where applicable. Madyson Schmid is a 22 year old female who presents today for a new evaluation of following complaint: Patient presents with: Right Knee - New Patient HISTORY OF PRESENT ILLNESS (HPI) PAIN EVALUATION 07/09/20232154 Pain Level: 7 Pain Location: Knee-Right Description: Aching;Pulsating;Sharp;Sp asm Frequency: Continuous with the presenting complaint of New Patient of the Right Knee Brief overview: Patient states she had surgery in July 2021 for meniscus tear. Patient states that in July 2022 her knee started bothering her again. Patient denies injury. Aggravating Factors Does anything make it worse?: standing for long periods of time, driving Activity level: Low Locking - no Madyson reports a current pain level of 7 (Knee-Right). She describes the pain as Aching, Pulsating, Sharp, Spasm. The pain is Continuous . No knee imaging is available at this time. PREVIOUS TREATMENTS: Treatments so far have included medication (Voltaren Gel, Tylenol, Ibuprofen, Aleve), physical therapy (completed in the past), injection (steroid injection to the right knee, did not help), the assistive use of a brace, and surgery (2020). REVIEW OF SYSTEMS ROS: Neurologic: Any numbness or tingling? No Endocrine: Any diagnosis of diabetes? No ALLERGIES ALLERGIES Allergen Reactions Narcotics [Opioids * Other: See Comments Fainting/Urinary Incontinence Prednisone Other: See Comments Fainting/Urinary incontinence PAST MEDICAL HISTORY No past medical history on file. PHYSICAL EXAMINATION Body Habitus: well nourished, no acute distress, and alert and oriented Psych: normal Sensation: sensation to light touch is grossly normal bilaterally Skin: Color, texture, turgor normal. No rashes or lesions Swelling: no swelling noted Gait: Normal, the patient did not have trouble getting onto the exam table. ORTHO EXAM: Ortho Exam Knee: Exam is stable in varus and valgus Hip ROM stable Knee ROM is normal Medial knee pain is at joint line, but negative Aleksander and Thessaly. Gluteal bridge- weak within 5 seconds IMAGING/LABORATORY IMAGING: No imaging was performed today. ASSESSMENT / PLAN CLINICAL IMPRESSION / ASSESSMENT: CLINICAL IMPRESSION / ASSESSMENT: (M25.561, G89.29) Chronic pain of right knee (primary encounter diagnosis) (M67.959) Tendinopathy of gluteal region RECOMMENDATION / PLAN: Counseled. Needs to work on gluteal and quad strength as the sole treatment for 3-4 months. Essentially, needs to get moving and work on exercise goals. Admits that she doesn't like PT, as it doesn't work. I've explained timing and expectations. She need to consider PT or manager personal. Reaction knee brace Consider IA toradol, did discuss orthobiologics Follow up: Films prior to visit: Written instructions (see patient instructions) and verbal health education given to patient. Patient verbalizes understanding and agrees with the treatment plan. Jose Armando Grey D.O. [facility] Strategist, [facility] Program Team Physician, [facility] [employer] Consulting Physician, [facility] Martin Nagel, Research Food Technologist [phone] Referring Provider: SELF [200] Allergies As of Date: 07/10/2023 Noted Allergy Reaction NARCOTICS (OPIOIDS - MORPHINE ARMANI*01/25/2022 14 - Other: See Comments Comments: Fainting/Urinary Incontinence PREDNISONE 01/25/2022 14 - Other: See Comments Comments: Fainting/Urinary incontinence Date Reviewed: 07/10/2023 Reviewed by: Guerita Traore MA - Fully Assessed Reason for Visit: New Patient [172] Primary Visit Diagnosis:Chronic pain of right knee [M25.561, G89.29] Other Visit Diagnosis:Tendinopathy of gluteal region [M67.959] Problem List As Of Date: 07/10/2023 (None) Medications Discontinued During This Encounter Prescriptions - diclofenac, EC, (VOLTAREN) 75 mg EC tablet (Discontinued) One tab po bid prn - droxidopa (NORTHERA) 100 mg capsule (Discontinued) 100 mg three times daily. Level of (more content not included)... Normal [facility]ART CENTERon 07-10 [facility] Tobacco Screening.on 023 Adult depression screening assessment No [facility] [address] DO Work Phone: Tobacco use status [facility]PH[facility] b) No [facility] 600 DO Work Phone: XR chest 1V portableon 06-09 XR chest 1V portable [facility] Main [address] [address] XRay Report Signed Patient: Madyson Schmid MR#: [id number] : 2000 Acct:[id number] Age/Sex: 22 / F ADM Date: 06/08/23 Loc: ER Room: Type: [facility] ER Attending Dr: Copies to: Haris Martino DO Ordering Provider: Haris Martino DO Date of Service: 06/08/23 XR/XR chest 1V portable: Chest Pain XR chest 1V portable 06/08/2023 8:16 PM SIGNS AND SYMPTOMS: Chest Pain PROTOCOL: Frontal radiograph of the chest COMPARISON: 01/18/2023 FINDINGS: The trachea is midline. The heart and mediastinal structures are within normal limits. The lung parenchyma is clear. The bony thorax is intact. XR/XR chest 1V portable IMPRESSION: No acute cardiopulmonary pathology. Impression dictated by: Good Ho M.D.06/09/2023 9:07 AM Dictation Location: [place] [address] Transcribed By: [facility] 06/09/23906 Dictated By: Good Ho II, MD 06/09/23905 Signed By: 06/09/23906 [facility] Activated partial thrombopla stin time (aPTT) in platelet poor plasma by coagulation aOrdered By: Haris Martino on 06-08-2023 aPTT Coag (PPP) [Time] 28.9 s 25.1-36.5 [facility] Comment on above: A hematocrit value g reater than 55% may lead to inaccurate results in coagulation testing. Patients having hematocrit values >55% require a special collection tube for coagulation studies. Please contact the laboratory at [phone] for redraw instructions. Alanine aminotransferase [En zymatic activity/volume] in Serum or PlasmaOrdered By: Haris Martino on 06-08-2023 ALT [Catalytic activity/Vol] 42 U/L 7-52 [facility] Albumin [Mass/volume] in Ser um or Plasma by Bromocresol green (BCG) dye binding methoOrdered By: Haris Martino on 06-08-2023 Albumin BCG dye [Mass/Vol] 4.6 g/dL 3.5-5.7 [facility] Alkaline phosphatase [Enzyma tic activity/volume] in Serum or PlasmaOrdered By: Haris Martino on 06-08-2023 ALP [Catalytic activity/Vol] 78 U/L 34-104 [facility] Aspartate aminotransferase [ Enzymatic activity/volume] in Serum or PlasmaOrdered By: Haris Martino on 06-08-2023 AST [Catalytic activity/Vol] 22 U/L 13-39 [facility] Automated erythrocytes count in urine sediment (number/area)Ordered By: Haris Martino on 06-08-2023 RBC Auto (Urine sed) [#/Area] 5-9 [HPF] 0-4 [facility] Automated leukocytes count i n urine sediment (number/area)Ordered By: Haris Martino on 06-08-2023 WBC Auto (Urine sed) [#/Area] 3-4 [HPF] 0-4 [facility] B-Type Natriuretic Peptideon 06-08-2023 Natriuretic peptide B (Bld) [Mass/Vol] 9.0 pg/mL Normal 5-100 [facility] Comment on above: Result Comment: PERF ORMED BY: [place] [address] PATHOLOGIST [employer] OFE ELLIS M.D. Performed By: #### D DIMER, PT, PTT, CK, BMP, CBC, BNP, HEPATIC, HS TROP #### [address] Basic Metabolic Panelon 05-25 Anion gap [Moles/Vol] 9.7 mmol/L Normal 6.0-15.0 [facility] Comment on above: Performed By: #### D DIMER, PT, PTT, CK, BMP, CBC, BNP, HEPATIC, HS TROP #### [facility] [address] Calcium [Mass/Vol] 9.4 mg/dL Normal 8.6-10.3 [facility] Comment on above: Performed By: #### D DIMER, PT, PTT, CK, BMP, CBC, BNP, HEPATIC, HS TROP #### [facility] [address] Chloride [Moles/Vol] 104 mmol/L Normal 98-107 [facility] Comment on above: Performed By: #### D DIMER, PT, PTT, CK, BMP, CBC, BNP, HEPATIC, HS TROP #### [facility] [address] CO2 [Moles/Vol] 29.3 mmol/L Normal 21.0-31.0 [facility] Comment on above: Performed By: #### D DIMER, PT, PTT, CK, BMP, CBC, BNP, HEPATIC, HS TROP #### [address] Creatinine [Mass/Vol] 0.64 mg/dL Normal 0.60-1.20 [facility] Comment on above: Performed By: #### D DIMER, PT, PTT, CK, BMP, CBC, BNP, HEPATIC, HS TROP #### [address] Creatinine Clr Calc Pharmacy 155.50 [facility] Comment on above: Result Comment: PERF ORMED BY: [place] [address] PATHOLOGIST [employer] OFE ELLIS M.D. Performed By: #### D DIMER, PT, PTT, CK, BMP, CBC, BNP, HEPATIC, HS TROP #### [address] GFR/1.73 sq M.predicted MDRD (S/P/Bld) [Vol rate/Area] mL/min/{1.73_m2} [facility] Comment on above: Performed By: #### D DIMER, PT, PTT, CK, BMP, CBC, BNP, HEPATIC, HS TROP #### [facility] [address] Glucose [Mass/Vol] 79 mg/dL Normal 70-100 [facility] Comment on above: Result Comment: [facility] Glucose Reference Range is dependent on time and content of last meal. Glucose of more than 200 mg/dL in a nonstressed, ambulatory subject supports the diagnosis of Diabetes Mellitus. ADA recommended reference range Performed By: #### D DIMER, PT, PTT, CK, BMP, CBC, BNP, HEPATIC, HS TROP #### [facility] [address] Potassium [Moles/Vol] 4.0 mmol/L Normal 3.5-5.1 [facility] Comment on above: Performed By: #### D DIMER, PT, PTT, CK, BMP, CBC, BNP, HEPATIC, HS TROP #### [address] Sodium [Moles/Vol] 139 mmol/L Normal 136-145 [facility] Comment on above: Performed By: #### D DIMER, PT, PTT, CK, BMP, CBC, BNP, HEPATIC, HS TROP #### [address] Urea nitrogen [Mass/Vol] 10 mg/dL Normal 7-25 [facility] Comment on above: Performed By: #### D DIMER, PT, PTT, CK, BMP, CBC, BNP, HEPATIC, HS TROP #### [address] Basophils Auto (Bld) [#/Vol] Ordered By: Haris Martino on 06-08-2023 Basophils (Bld) [#/Vol] 0.1 10*3/uL 0.0-0.2 [facility] Basophils/100 WBC Auto (Bld) Ordered By: Haris Martino on 06-08-2023 Basophils/100 WBC (Bld) 1.0 % . [facility] Bilirubin Test strip Ql (U)O rdered By: Haris Martino on 06-08-2023 Bilirubin Ql (U) Negative Negative [facility] Bilirubin.direct [Mass/volum e] in Serum or PlasmaOrdered By: Haris Martino on 06-08-2023 Bilirubin.direct [Mass/Vol] 0.10 mg/dL 0.03-0.18 [facility] Bilirubin.total [Mass/volume ] in Serum or PlasmaOrdered By: Haris Martino on 06-08-2023 Bilirubin [Mass/Vol] 0.4 mg/dL 0.3-1.0 [facility] Calcium [Mass/volume] in Ser um or PlasmaOrdered By: Haris Martino on 06-08-2023 Calcium [Mass/Vol] 9.4 mg/dL 8.6-10.3 [facility] Carbon dioxide, total [Moles /volume] in Serum or PlasmaOrdered By: Haris Martino on 06-08-2023 CO2 [Moles/Vol] 29.3 mmol/L 21.0-31.0 [facility] Chloride [Moles/volume] in S colin or PlasmaOrdered By: Haris Martino on 06-08-2023 Chloride [Moles/Vol] 104 mmol/L 98-107 [facility] Color Auto (U)Ordered By: Terrell red Salena on 06-08-2023 Color (U) Yellow Yellow [facility] Complete Blood Count Auto Di ffon 06-08-2023 Basophils (Bld) [#/Vol] 0.1 10*3/uL Normal 0.0-0.2 [facility] Comment on above: Result Comment: PERF ORMED BY: [address] [place] [address] PATHOLOGIST [employer] OFE ELLIS M.D. Performed By: #### D DIMER, PT, PTT, CK, BMP, CBC, BNP, HEPATIC, HS TROP #### [facility] [address] [place] [address] [place] Basophils/100 WBC (Bld) 1.0 % Normal . [facility] Comment on above: Performed By: #### D DIMER, PT, PTT, CK, BMP, CBC, BNP, HEPATIC, HS TROP #### [facility] [address] [place] [address] [place] Eosinophils (Bld) [#/Vol] 0.1 10*3/uL Normal 0.0-0.45 [facility] Comment on above: Performed By: #### D DIMER, PT, PTT, CK, BMP, CBC, BNP, HEPATIC, HS TROP #### [address] Eosinophils/100 WBC (Bld) 0.8 % Normal . [facility] Comment on above: Performed By: #### D DIMER, PT, PTT, CK, BMP, CBC, BNP, HEPATIC, HS TROP #### [address] Erythrocyte distribution width (RBC) [Ratio] 12.9 % Normal 11.9-15.3 [facility] Comment on above: Performed By: #### D DIMER, PT, PTT, CK, BMP, CBC, BNP, HEPATIC, HS TROP #### [address] Hematocrit (Bld) [Volume fraction] 42.4 % Normal 34.0-46.4 [facility] Comment on above: Performed By: #### D DIMER, PT, PTT, CK, BMP, CBC, BNP, HEPATIC, HS TROP #### [address] Hemoglobin (Bld) [Mass/Vol] 14.5 g/dL Normal 11.8-15.4 [facility] Comment on above: Performed By: #### D DIMER, PT, PTT, CK, BMP, CBC, BNP, HEPATIC, HS TROP #### [address] Lymphocytes (Bld) [#/Vol] 3.0 10*3/uL Normal 1.00-4.8 [facility] Comment on above: Performed By: #### D DIMER, PT, PTT, CK, BMP, CBC, BNP, HEPATIC, HS TROP #### [address] Lymphocytes/100 WBC (Bld) 36.0 % Normal . [facility] Comment on above: Performed By: #### D DIMER, PT, PTT, CK, BMP, CBC, BNP, HEPATIC, HS TROP #### [address] MCH (RBC) [Entitic mass] 29.4 pg Normal 24.7-34.3 [facility] Comment on above: Performed By: #### D DIMER, PT, PTT, CK, BMP, CBC, BNP, HEPATIC, HS TROP #### [address] MCV (RBC) [Entitic vol] 85.9 fL Normal 80-100 [facility] Comment on above: Performed By: #### D DIMER, PT, PTT, CK, BMP, CBC, BNP, HEPATIC, HS TROP #### [address] Mean Corpuscular HGB Conc 34.2 g/dL Normal 32.0-35.0 [facility] Comment on above: Performed By: #### D DIMER, PT, PTT, CK, BMP, CBC, BNP, HEPATIC, HS TROP #### [address] Monocytes (Bld) [#/Vol] 0.5 10*3/uL Normal 0.0-0.8 [facility] Comment on above: Performed By: #### D DIMER, PT, PTT, CK, BMP, CBC, BNP, HEPATIC, HS TROP #### [address] Monocytes/100 WBC (Bld) 18.39 % Normal 0.00-20.00 [facility] Comment on above: Performed By: #### D DIMER, PT, PTT, CK, BMP, CBC, BNP, HEPATIC, HS TROP #### [address] Monocytes/100 WBC (Bld) 6.6 % Normal . [facility] Comment on above: Performed By: #### D DIMER, PT, PTT, CK, BMP, CBC, BNP, HEPATIC, HS TROP #### [address] Neutrophils (Bld) [#/Vol] 4.6 10*3/uL Normal 1.8-7.7 [facility] Comment on above: Performed By: #### D DIMER, PT, PTT, CK, BMP, CBC, BNP, HEPATIC, HS TROP #### [facility] [address] [place] [address] [place] Neutrophils/100 WBC (Bld) 55.6 % Normal . [facility] Comment on above: Performed By: #### D DIMER, PT, PTT, CK, BMP, CBC, BNP, HEPATIC, HS TROP #### [facility] [address] NRBC% 0.1 /100{WBC} Normal 0-0.5 [facility] Comment on above: Performed By: #### D DIMER, PT, PTT, CK, BMP, CBC, BNP, HEPATIC, HS TROP #### [address] Platelet mean volume (Bld) [Entitic vol] 8.2 fL Normal 6.3-10.7 [facility] Comment on above: Performed By: #### D DIMER, PT, PTT, CK, BMP, CBC, BNP, HEPATIC, HS TROP #### [place] [address] [place] Platelets (Bld) [#/Vol] 225 10*3/uL Normal 150-450 [facility] Comment on above: Performed By: #### D DIMER, PT, PTT, CK, BMP, CBC, BNP, HEPATIC, HS TROP #### [place] [address] [place] RBC (Bld) [#/Vol] 4.94 10*6/uL Normal 3.60-5.00 [facility] Comment on above: Performed By: #### D DIMER, PT, PTT, CK, BMP, CBC, BNP, HEPATIC, HS TROP #### [address] WBC (Bld) [#/Vol] 8.3 10*3/uL Normal 3.8-11.6 [facility] Comment on above: Performed By: #### D DIMER, PT, PTT, CK, BMP, CBC, BNP, HEPATIC, HS TROP #### [facility] [address] [place] [id number] [facility] Creatine Kinaseon 06-08-2023 CK [Catalytic activity/Vol] 55 U/L Normal 223 [facility] Comment on above: Performed By: #### D DIMER, PT, PTT, CK, BMP, CBC, BNP, HEPATIC, HS TROP #### [facility] [address] Creatine kinase [Enzymatic a ctivity/volume] in Serum or PlasmaOrdered By: Haris Martino on 06-08-2023 CK [Catalytic activity/Vol] 55 U/L [facility] Creatinine [Mass/volume] in Serum or PlasmaOrdered By: Haris Martino on 06-08-2023 Creatinine [Mass/Vol] 0.64 mg/dL 0.60-1.20 [facility] D-Dimer High Sensitivityon 0 06-08-2023 D-Dimer High Sensitivity < 200 Normal 0-243 [facility] Comment on above: Result Comment: The reference range for D-dimer is <243 ng/mL D-dimer units. D-dimer results must be used in conjunction with a clinical pretest probability (PTP) assessment model for deep vein thrombosis (DVT) and pulmonary embolism (PE). Results <230 ng/mL d-dimer units can be used as a negative predictor in patients with low or moderate probability for DVT/PE. Results above the exclusion threshold of 230 ng/ml D-dimer units for DVT/PE may indicate the need for further diagnostic testing. D-Dimer can be increased in hospitalized patients due to co-morbid conditions. A hematocrit value greater than 55% may lead to inaccurate results in coagulation testing. Patients having hematocrit values >55% require a special collection tube for coagulation studies. Please contact the laboratory at [phone] for redraw instructions. PERFORMED BY: [place] [id number] PATHOLOGIST [employer] OFE ELLIS M.D. Performed By: #### D DIMER, PT, PTT, CK, BMP, CBC, BNP, HEPATIC, HS TROP #### [facility] [address] [place] [address] [place] Dipstick and Microscopicon 0 06-08-2023 Appearance (U) Clear Normal Clear [facility] Comment on above: Order Comment: Name Collection Type:: Clean-Voided Midstream Performed By: #### D DIMER, PT, PTT, CK, BMP, CBC, BNP, HEPATIC, HS TROP #### [facility] [address] [place] [address] [place] Bacteria,Urine 1+ High None Seen [facility] Comment on above: Order Comment: Name Collection Type:: Clean-Voided Midstream Performed By: #### D DIMER, PT, PTT, CK, BMP, CBC, BNP, HEPATIC, HS TROP #### [facility] [address] [place] [address] [place] Bilirubin,Urine Negative Normal Negative [facility] Comment on above: Order Comment: Name Collection Type:: Clean-Voided Midstream Performed By: #### D DIMER, PT, PTT, CK, BMP, CBC, BNP, HEPATIC, HS TROP #### [address] Color (U) Yellow Normal Yellow [facility] Comment on above: Order Comment: Name Collection Type:: Clean-Voided Midstream Performed By: #### D DIMER, PT, PTT, CK, BMP, CBC, BNP, HEPATIC, HS TROP #### [facility] [address] [place] [address] Glucose Ql (U) Normal Normal Normal [facility] Comment on above: Order Comment: Name Collection Type:: Clean-Voided Midstream Performed By: #### D DIMER, PT, PTT, CK, BMP, CBC, BNP, HEPATIC, HS TROP #### [place] [address] [place] Hyaline Casts,Urine 0-8 Normal 0-8 [facility] Comment on above: Order Comment: Name Collection Type:: Clean-Voided Midstream Performed By: #### D DIMER, PT, PTT, CK, BMP, CBC, BNP, HEPATIC, HS TROP #### [place] [address] [place] Ketones Ql (U) Negative Normal Negative [facility] Comment on above: Order Comment: Name Collection Type:: Clean-Voided Midstream Performed By: #### D DIMER, PT, PTT, CK, BMP, CBC, BNP, HEPATIC, HS TROP #### [address] Leukocyte esterase Test strip Ql (U) 1+ High Negative [facility] Comment on above: Order Comment: Name Collection Type:: Clean-Voided Midstream Performed By: #### D DIMER, PT, PTT, CK, BMP, CBC, BNP, HEPATIC, HS TROP #### [facility] [address] [place] [address] Nitrite,Urine Negative Normal Negative [facility] Comment on above: Order Comment: Name Collection Type:: Clean-Voided Midstream Performed By: #### D DIMER, PT, PTT, CK, BMP, CBC, BNP, HEPATIC, HS TROP #### [facility] [address] [place] [address] Occult Blood,Urine Negative Normal Negative [facility] Comment on above: Order Comment: Name Collection Type:: Clean-Voided Midstream Performed By: #### D DIMER, PT, PTT, CK, BMP, CBC, BNP, HEPATIC, HS TROP #### [address] pH (U) 6.5 [pH] Normal 5.0-9.0 [facility] Comment on above: Order Comment: Name Collection Type:: Clean-Voided Midstream Performed By: #### D DIMER, PT, PTT, CK, BMP, CBC, BNP, HEPATIC, HS TROP #### [facility] [address] [place] [address] Protein,Urine Negative Normal Negative [facility] Comment on above: Order Comment: Name Collection Type:: Clean-Voided Midstream Performed By: #### D DIMER, PT, PTT, CK, BMP, CBC, BNP, HEPATIC, HS TROP #### [address] RBC,Urine 5-9 High 0-4 [facility] Comment on above: Order Comment: Name Collection Type:: Clean-Voided Midstream Performed By: #### D DIMER, PT, PTT, CK, BMP, CBC, BNP, HEPATIC, HS TROP #### [address] Specificy [place],Urine 1.015 Normal 1.001-1.03 0 [facility] Comment on above: Order Comment: Name Collection Type:: Clean-Voided Midstream Performed By: #### D DIMER, PT, PTT, CK, BMP, CBC, BNP, HEPATIC, HS TROP #### [address] Squamous Epithelial Cell,Urine 3-4 High 0-2 [facility] Comment on above: Order Comment: Name Collection Type:: Clean-Voided Midstream Performed By: #### D DIMER, PT, PTT, CK, BMP, CBC, BNP, HEPATIC, HS TROP #### [address] Urobilinogen,Urine Normal Normal Normal [facility] Comment on above: Order Comment: Name Collection Type:: Clean-Voided Midstream Performed By: #### D DIMER, PT, PTT, CK, BMP, CBC, BNP, HEPATIC, HS TROP #### [address] WBC,Urine 3-4 Normal 0-4 [facility] Comment on above: Order Comment: Name Collection Type:: Clean-Voided Midstream Performed By: #### D DIMER, PT, PTT, CK, BMP, CBC, BNP, HEPATIC, HS TROP #### [address] ECG 12 lead ECGon 06-08-2023 ECG 12 lead ECG [facility] [place] [address] Electrocardiograph Report Signed Patient: Madyson Schmid MR#: [id number] : 2000 Acct:[id number] Age/Sex: 22 / F ADM Date: 06/08/23 Loc: ER Room: Type: [facility] ER Attending Dr: Ordering Provider: Haris Martino DO Date of Service: 06/08/23 ECG/ECG 12 lead ECG: Chest Pain Copies to: Test Reason : Blood Pressure : 125/077 mmHG Vent. Rate : 066 BPM Atrial Rate : 066 BPM P-R Int : 140 ms QRS Dur : 088 ms QT Int : 400 ms P-R-T Axes : 045 077 034 degrees QTc Int : 419 ms Normal sinus rhythm Normal ECG When compared with ECG of 14-DEC-2021 14:40, No significant change was found Confirmed by Haris Martino DO ([id number]) on 06/09/2023 12:23:57 AM Referred By: Electronically Signed By:Haris Martino DO Transcribed By: MUS Signed By Haris Martino DO 3 0024 Normal [facility] Eosinophils Auto (Bld) [#/Vo l]Ordered By: Haris Martino on 06-08-2023 Eosinophils (Bld) [#/Vol] 0.1 10*3/uL 0.0-0.45 [facility] Eosinophils/100 WBC Auto (Bl d)Ordered By: Haris Martino on 06-08-2023 Eosinophils/100 WBC (Bld) 0.8 % . [facility] Erythrocyte distribution wid th Auto (RBC) [Ratio]Ordered By: Haris Martino on 06-08-2023 Erythrocyte distribution width (RBC) [Ratio] 12.9 % 11.9-15.3 [facility] Fibrin D-dimer [Presence] in Platelet poor plasma by Latex agglutinationOrdered By: Haris Martino on 06-08-2023 Fibrin D-dimer LA Ql (PPP) < 200 ng/mL 0-243 [facility] Comment on above: The reference range for D-dimer is <243 ng/mL D-dimer units.D-dimer results must be used in conjunction with a clinicalpretest probability (PTP) assessment model for deep veinthrombosis (DVT) and pulmonary embolism (PE). Results <230ng/mL d-dimer units can be used as a negative predictor inpatients with low or moderate probability for DVT/PE.Results above the exclusion threshold of 230 ng/ml D-dimerunits for DVT/PE may indicate the need for furtherdiagnostic testing.D-Dimer can be increased in hospitalized patients due toco-morbid conditions.A hematocrit value greater than 55% may lead to inaccurate results in coagulation testing. Patients having hematocrit values >55% require a special collection tube for coagulation studies. Please contact the laboratory at [phone] for redraw instructions. Globulin Calc (S) [Mass/Vol] Ordered By: Haris Martino on 06-08-2023 Globulin (S) [Mass/Vol] 2.9 g/dL [facility] Glucose [Mass/volume] in Ser um or PlasmaOrdered By: Haris Martino on 06-08-2023 Glucose [Mass/Vol] 79 mg/dL 70-100 [facility] Comment on above: ADA recommended refe rence rangeRandom Glucose Reference Range is dependent on time and content of last meal. Glucose of more than 200 mg/dL in a nonstressed, ambulatory subject supports the diagnosis of Diabetes Mellitus. HCG ( test) IA.rapi d Ql (U)Ordered By: Haris Martino on 06-08-2023 HCG ( test) Ql (U) Negative [facility] HCG,Urineon 06-08-2023 Beta HCG ( test) Ql (U) Negative Normal [facility] Comment on above: Order Comment: Name Collection Type:: Clean-Voided Midstream Result Comment: PERF ORMED BY: [place] [address] PATHOLOGIST [employer] OFE ELLIS M.D. Performed By: #### D DIMER, PT, PTT, CK, BMP, CBC, BNP, HEPATIC, HS TROP #### [facility] [address] Hematocrit Auto (Bld) [Volum e fraction]Ordered By: Haris Martino on 06-08-2023 Hematocrit (Bld) [Volume fraction] 42.4 % 34.0-46.4 [facility] Hemoglobin [Mass/volume] in BloodOrdered By: Haris Martino on 06-08-2023 Hemoglobin (Bld) [Mass/Vol] 14.5 g/dL 11.8-15.4 [facility] Hepatic Panelon 06-08-2023 Albumin [Mass/Vol] 4.6 g/dL Normal 3.5-5.7 [facility] Comment on above: Performed By: #### D DIMER, PT, PTT, CK, BMP, CBC, BNP, HEPATIC, HS TROP #### [facility] [address] Albumin/Globulin [Mass ratio] 1.6 {ratio} Normal [facility] Comment on above: Performed By: #### D DIMER, PT, PTT, CK, BMP, CBC, BNP, HEPATIC, HS TROP #### [facility] [address] ALP [Catalytic activity/Vol] 78 U/L Normal 34-104 [facility] Comment on above: Performed By: #### D DIMER, PT, PTT, CK, BMP, CBC, BNP, HEPATIC, HS TROP #### [address] ALT [Catalytic activity/Vol] 42 U/L Normal 7-52 [facility] Comment on above: Performed By: #### D DIMER, PT, PTT, CK, BMP, CBC, BNP, HEPATIC, HS TROP #### [address] AST [Catalytic activity/Vol] 22 U/L Normal 13-39 [facility] Comment on above: Performed By: #### D DIMER, PT, PTT, CK, BMP, CBC, BNP, HEPATIC, HS TROP #### [address] Bilirubin [Mass/Vol] 0.4 mg/dL Normal 0.3-1.0 [facility] Comment on above: Performed By: #### D DIMER, PT, PTT, CK, BMP, CBC, BNP, HEPATIC, HS TROP #### [place] [address] [place] Bilirubin,Indirect 0.3 mg/dL Normal [facility] Comment on above: Performed By: #### D DIMER, PT, PTT, CK, BMP, CBC, BNP, HEPATIC, HS TROP #### [place] [address] [place] Bilirubin.indirect [Mass/Vol] 0.10 mg/dL Normal 0.03-0.18 [facility] Comment on above: Performed By: #### D DIMER, PT, PTT, CK, BMP, CBC, BNP, HEPATIC, HS TROP #### [facility] [address] Globulin (S) [Mass/Vol] 2.9 g/dL Normal [facility] Comment on above: Performed By: #### D DIMER, PT, PTT, CK, BMP, CBC, BNP, HEPATIC, HS TROP #### [facility] [address] Protein [Mass/Vol] 7.5 g/dL Normal 6.4-8.9 [facility] Comment on above: Performed By: #### D DIMER, PT, PTT, CK, BMP, CBC, BNP, HEPATIC, HS TROP #### [facility] [address] [place] [address] [place] INR in Platelet poor plasma by Coagulation assayOrdered By: Haris Martino on 06-08-2023 INR Coag (PPP) [Relative time] 1.0 {INR} [facility] Comment on above: INR Therapeutic Rang e A) Pre- and Peroperative OAT started two weeks before surgery. NOT HIP SURGERY: 1.5 - 2.5 HIP SURGERY: 2 - 3B) Primary and secondary prevention of venous THROMBOSIS: 2 - 3C) Active venous thrombosis, pulmonary embolismand prevention of recurrent venous thrombosis: 2 - 3D) Prevention of arterial thromboembolismincluding patients with mechanical heart valves: 3 - 4.5 Ketones Auto test strip (U) [Mass/Vol]Ordered By: Haris Martino on 06-08-2023 Ketones (U) [Mass/Vol] Negative Negative [facility] Laboratory - UrinalysisOrder ed By: Haris Martino on 06-08-2023 Hyaline casts LM Ql (Urine sed) 0-8 [LPF] 0-8 [facility] Leukocytes [#/volume] correc matt for nucleated erythrocytes in Blood by Automated counOrdered By: Haris Martino on 06-08-2023 WBC corrected for nucl RBC Auto (Bld) [#/Vol] 8.3 10*3/uL 3.8-11.6 [facility] Lymphocytes Auto (Bld) [#/Vo l]Ordered By: Haris Martino on 06-08-2023 Lymphocytes (Bld) [#/Vol] 3.0 10*3/uL 1.00-4.8 [facility] Lymphocytes/100 WBC Auto (Bl d)Ordered By: Haris Martino on 06-08-2023 Lymphocytes/100 WBC (Bld) 36.0 % . [facility] MCH Auto (RBC) [Entitic mass ]Ordered By: Haris Martino on 06-08-2023 MCH (RBC) [Entitic mass] 29.4 pg 24.7-34.3 [facility] MCHC Auto (RBC) [Mass/Vol]Or dered By: Haris Martino on 06-08-2023 MCHC (RBC) [Mass/Vol] 34.2 g/dL 32.0-35.0 [facility] MCV Auto (RBC) [Entitic vol] Ordered By: Haris Martino on 06-08-2023 MCV (RBC) [Entitic vol] 85.9 fL 80-100 [facility] Monocyte distribution width [Entitic volume] in Blood by AutomatedOrdered By: Hairs Martino on 06-08-2023 Monocyte distribution width Auto (Bld) [Entitic vol] 18.39 % 0.00-20.00 [facility] Monocytes Auto (Bld) [#/Vol] Ordered By: Haris Martino on 06-08-2023 Monocytes (Bld) [#/Vol] 0.5 10*3/uL 0.0-0.8 [facility] Monocytes/100 WBC Auto (Bld) Ordered By: Haris Martino on 06-08-2023 Monocytes/100 WBC (Bld) 6.6 % . [facility] Natriuretic peptide B [Mass/ Vol]Ordered By: Haris Martino on 06-08-2023 Natriuretic peptide B (Bld) [Mass/Vol] 9.0 pg/mL 5-100 [facility] Neutrophils Auto (Bld) [#/Vo l]Ordered By: aHris Martino on 06-08-2023 Neutrophils (Bld) [#/Vol] 4.6 10*3/uL 1.8-7.7 [facility] Neutrophils/100 WBC Auto (Bl d)Ordered By: Haris Martino on 06-08-2023 Neutrophils/100 WBC (Bld) 55.6 % . [facility] Nitrite Test strip Ql (U)Ord ered By: Haris Martino on 06-08-2023 Nitrite Ql (U) Negative Negative [facility] No Panel InformationOrdered By: Haris Martino on 06-08-2023 Estimated GFR (CKD-EPI) > 60.0 mL/Min [facility] Creatinine Clearance (Chem 155.50 [facility] Nucleated erythrocytes [Pres ence] in Blood by Automated countOrdered By: Haris Martino on 06-08-2023 Nucleated RBC Auto Ql (Bld) 0.1 /100{WBC} 0-0.5 [facility] Partial Thromboplastin Timeo n 06-08-2023 aPTT Coag (Bld) [Time] 28.9 s Normal 25.1-36.5 [facility] Comment on above: Result Comment: A he matocrit value greater than 55% may lead to inaccurate results in coagulation testing. Patients having hematocrit values >55% require a special collection tube for coagulation studies. Please contact the laboratory at [phone] for redraw instructions. Performed By: #### D DIMER, PT, PTT, CK, BMP, CBC, BNP, HEPATIC, HS TROP #### [facility] [address] Platelet mean volume Auto (B ld) [Entitic vol]Ordered By: Haris Martino on 06-08-2023 Platelet mean volume (Bld) [Entitic vol] 8.2 fL 6.3-10.7 [facility] Platelets Auto (Bld) [#/Vol] Ordered By: Haris Martino on 06-08-2023 Platelets (Bld) [#/Vol] 225 10*3/uL 150-450 [facility] Potassium [Moles/volume] in Serum or PlasmaOrdered By: Haris Martino on 06-08-2023 Potassium [Moles/Vol] 4.0 mmol/L 3.5-5.1 [facility] Protein Auto test strip (U) [Mass/Vol]Ordered By: Haris Martino on 06-08-2023 Protein (U) [Mass/Vol] Negative Negative [facility] Protein [Mass/volume] in Ser um or PlasmaOrdered By: Haris Martino on 06-08-2023 Protein [Mass/Vol] 7.5 g/dL 6.4-8.9 [facility] Prothrombin Time INRon 06-08 INR Coag (PPP) [Relative time] 1.0 {INR} Normal [facility] Comment on above: Result Comment: INR Therapeutic Range A) Pre- and Peroperative OAT started two weeks before surgery. NOT HIP SURGERY: 1.5 - 2.5 HIP SURGERY: 2 - 3 B) Primary and secondary prevention of venous THROMBOSIS: 2 - 3 C) Active venous thrombosis, pulmonary embolism and prevention of recurrent venous thrombosis: 2 - 3 D) Prevention of arterial thromboembolism including patients with mechanical heart valves: 3 - 4.5 Performed By: #### D DIMER, PT, PTT, CK, BMP, CBC, BNP, HEPATIC, HS TROP #### [facility] [address] PT Coag (PPP) [Time] 12.2 s Normal 9.0-12.9 [facility] Comment on above: Result Comment: A he matocrit value greater than 55% may lead to inaccurate results in coagulation testing. Patients having hematocrit values >55% require a special collection tube for coagulation studies. Please contact the laboratory at [phone] for redraw instructions. Performed By: #### D DIMER, PT, PTT, CK, BMP, CBC, BNP, HEPATIC, HS TROP #### [facility] [address] [place] [id number] [facility] Prothrombin time (PT)Ordered By: Haris Martino on 06-08-2023 PT Coag (PPP) [Time] 12.2 s 9.0-12.9 [facility] Comment on above: A hematocrit value g reater than 55% may lead to inaccurate results in coagulation testing. Patients having hematocrit values >55% require a special collection tube for coagulation studies. Please contact the laboratory at [phone] for redraw instructions. RBC Auto (Bld) [#/Vol]Ordere d By: Haris Martino on 06-08-2023 RBC (Bld) [#/Vol] 4.94 10*6/uL 3.60-5.00 [facility] Serum or plasma albumin/glob ulin mass ratioOrdered By: Haris Martino on 06-08-2023 Albumin/Globulin [Mass ratio] 1.6 {ratio} [facility] Serum or plasma anion gap de terminationOrdered By: Haris Martino on 06-08-2023 Anion gap [Moles/Vol] 9.7 mmol/L 6.0-15.0 [facility] Serum or plasma non-glucuron idated bilirubin measurement (mass/volume)Ordered By: Haris Martino on 06-08-2023 Bilirubin.indirect [Mass/Vol] 0.3 mg/dL [facility] Sodium [Moles/volume] in Ser um or PlasmaOrdered By: Haris Martino on 06-08-2023 Sodium [Moles/Vol] 139 mmol/L 136-145 [facility] Specific gravity Auto test s trip (U) [Rel density]Ordered By: Haris Martino on 06-08-2023 Specific gravity (U) [Rel density] 1.015 1.001-1.03 0 [facility] Squamous epithelial cells de tection in urine sediment by light microscopyOrdered By: Haris Martino on 06-08-2023 Epithelial cells.squamous LM Ql (Urine sed) 3-4 [HPF] 0-2 [facility] Troponin I High Sensitivityo n 06-08-2023 Troponin I High Sensitivity < 2.3 Normal 0.0-15.0 [facility] Comment on above: Result Comment: PERF ORMED BY: [place] [address] PATHOLOGIST [employer] CEMENTER OFE ELLIS M.D. Performed By: #### D DIMER, PT, PTT, CK, BMP, CBC, BNP, HEPATIC, HS TROP #### [facility] [address] Troponin I.cardiac [Mass/vol ume] in Serum or Plasma by Detection limit <= 0.01 ng/Ordered By: Haris Martino on 06-08-2023 Troponin I.cardiac DL <= 0.01 ng/mL [Mass/Vol] < 2.3 pg/mL 0.0-15.0 [facility] Urea nitrogen [Mass/volume] in Serum or PlasmaOrdered By: Haris Martino on 06-08-2023 Urea nitrogen [Mass/Vol] 10 mg/dL 04-17 [facility] Urine bacteria detection by automated methodOrdered By: Haris Martino on 06-08-2023 Bacteria Auto Ql (U) 1+ None Seen [facility] Urine clarity by refractomet ry automatedOrdered By: Haris Martino on 06-08-2023 Clarity Refractometry automated (U) Clear Clear [facility] Urine glucose measurement by automated test strip (mass/volume)Ordered By: Haris Martino on 06-08-2023 Glucose Auto test strip (U) [Mass/Vol] Normal mg/dL Normal [facility] Urine hemoglobin detection b y automated test stripOrdered By: Haris Martino on 06-08-2023 Hemoglobin Auto test strip Ql (U) Negative Negative [facility] Urine leukocyte esterase det ection by automated test stripOrdered By: Haris Martino on 06-08-2023 Leukocyte esterase Auto test strip Ql (U) 1+ Negative [facility] Urobilinogen Auto test strip (U) [Mass/Vol]Ordered By: Haris Martino on 06-08-2023 Urobilinogen (U) [Mass/Vol] Normal mg/dL Normal [facility] WBC Auto (Bld) [#/Vol]Ordere d By: Haris Martino on 06-08-2023 WBC (Bld) [#/Vol] 8.3 10*3/uL 3.8-11.6 [facility] pH Auto test strip (U)Ordere d By: Haris Martino on 06-08-2023 pH (U) 6.5 [pH] 5.0-9.0 [facility] Alanine aminotransferase [En zymatic activity/volume] in Serum or PlasmaOrdered By: Carlitos Nguyen on 04-25-2023 ALT [Catalytic activity/Vol] 18 U/L [facility] Albumin [Mass/volume] in Ser um or Plasma by Bromocresol green (BCG) dye binding methoOrdered By: Carlitos Nguyen on 04-25-2023 Albumin BCG dye [Mass/Vol] 4.8 g/dL 3.5-5.7 [facility] Alkaline phosphatase [Enzyma tic activity/volume] in Serum or PlasmaOrdered By: Carlitos Nguyen on 04-25-2023 ALP [Catalytic activity/Vol] 73 U/L 34-104 [facility] Aspartate aminotransferase [ Enzymatic activity/volume] in Serum or PlasmaOrdered By: Carlitos Nguyen on 04-25-2023 AST [Catalytic activity/Vol] 18 U/L 13-39 [facility] Bilirubin.total [Mass/volume ] in Serum or PlasmaOrdered By: Carlitos Nguyen on 04-25-2023 Bilirubin [Mass/Vol] 0.5 mg/dL 0.3-1.0 [facility] CMP with reflex to A1Con Albumin [Mass/Vol] 4.8 g/dL Normal 3.5-5.7 [facility] Comment on above: Order Comment: THERE WAS NOT A CBC DRAWN PT PASSED OUT BEFORE IT WAS DRAWN Performed By: #### D DIMER, PT, PTT, CK, BMP, CBC, BNP, HEPATIC, HS TROP #### [facility] [address] Albumin/Globulin [Mass ratio] 1.8 {ratio} Normal [facility] Comment on above: Order Comment: THERE WAS NOT A CBC DRAWN PT PASSED OUT BEFORE IT WAS DRAWN Performed By: #### D DIMER, PT, PTT, CK, BMP, CBC, BNP, HEPATIC, HS TROP #### [facility] [address] [place] [id number] [facility] ALP [Catalytic activity/Vol] 73 U/L Normal 34-104 [facility] Comment on above: Order Comment: THERE WAS NOT A CBC DRAWN PT PASSED OUT BEFORE IT WAS DRAWN Performed By: #### D DIMER, PT, PTT, CK, BMP, CBC, BNP, HEPATIC, HS TROP #### [facility] [address] [place] [id number] [place] ALT [Catalytic activity/Vol] 18 U/L Normal 7-52 [facility] Comment on above: Order Comment: THERE WAS NOT A CBC DRAWN PT PASSED OUT BEFORE IT WAS DRAWN Performed By: #### D DIMER, PT, PTT, CK, BMP, CBC, BNP, HEPATIC, HS TROP #### [facility] [address] Anion gap [Moles/Vol] 12.4 mmol/L Normal 6.0-15.0 [facility] Comment on above: Order Comment: THERE WAS NOT A CBC DRAWN PT PASSED OUT BEFORE IT WAS DRAWN Performed By: #### D DIMER, PT, PTT, CK, BMP, CBC, BNP, HEPATIC, HS TROP #### [address] AST [Catalytic activity/Vol] 18 U/L Normal 13-39 [facility] Comment on above: Order Comment: THERE WAS NOT A CBC DRAWN PT PASSED OUT BEFORE IT WAS DRAWN Performed By: #### D DIMER, PT, PTT, CK, BMP, CBC, BNP, HEPATIC, HS TROP #### [address] Bilirubin [Mass/Vol] 0.5 mg/dL Normal 0.3-1.0 [facility] Comment on above: Order Comment: THERE WAS NOT A CBC DRAWN PT PASSED OUT BEFORE IT WAS DRAWN Performed By: #### D DIMER, PT, PTT, CK, BMP, CBC, BNP, HEPATIC, HS TROP #### [address] Calcium [Mass/Vol] 9.9 mg/dL Normal 8.6-10.3 [facility] Comment on above: Order Comment: THERE WAS NOT A CBC DRAWN PT PASSED OUT BEFORE IT WAS DRAWN Performed By: #### D DIMER, PT, PTT, CK, BMP, CBC, BNP, HEPATIC, HS TROP #### [facility] [address] Chloride [Moles/Vol] 105 mmol/L Normal 98-107 [facility] Comment on above: Order Comment: THERE WAS NOT A CBC DRAWN PT PASSED OUT BEFORE IT WAS DRAWN Performed By: #### D DIMER, PT, PTT, CK, BMP, CBC, BNP, HEPATIC, HS TROP #### [facility] [address] CO2 [Moles/Vol] 25.9 mmol/L Normal 21.0-31.0 [facility] Comment on above: Order Comment: THERE WAS NOT A CBC DRAWN PT PASSED OUT BEFORE IT WAS DRAWN Performed By: #### D DIMER, PT, PTT, CK, BMP, CBC, BNP, HEPATIC, HS TROP #### [address] Creatinine [Mass/Vol] 0.81 mg/dL Normal 0.60-1.20 [facility] Comment on above: Order Comment: THERE WAS NOT A CBC DRAWN PT PASSED OUT BEFORE IT WAS DRAWN Performed By: #### D DIMER, PT, PTT, CK, BMP, CBC, BNP, HEPATIC, HS TROP #### [address] GFR/1.73 sq M.predicted MDRD (S/P/Bld) [Vol rate/Area] mL/min/{1.73_m2} [facility] Comment on above: Order Comment: THERE WAS NOT A CBC DRAWN PT PASSED OUT BEFORE IT WAS DRAWN Performed By: #### D DIMER, PT, PTT, CK, BMP, CBC, BNP, HEPATIC, HS TROP #### [address] Globulin (S) [Mass/Vol] 2.6 g/dL [facility] Comment on above: Order Comment: THERE WAS NOT A CBC DRAWN PT PASSED OUT BEFORE IT WAS DRAWN Performed By: #### D DIMER, PT, PTT, CK, BMP, CBC, BNP, HEPATIC, HS TROP #### [address] Glucose [Mass/Vol] 84 mg/dL Normal 70-100 [facility] Comment on above: Order Comment: THERE WAS NOT A CBC DRAWN PT PASSED OUT BEFORE IT WAS DRAWN Performed By: #### D DIMER, PT, PTT, CK, BMP, CBC, BNP, HEPATIC, HS TROP #### [address] Potassium [Moles/Vol] 4.3 mmol/L Normal 3.5-5.1 [facility] Comment on above: Order Comment: THERE WAS NOT A CBC DRAWN PT PASSED OUT BEFORE IT WAS DRAWN Result Comment: Hemo lysis is present at a level that could interfere with the result. Performed By: #### D DIMER, PT, PTT, CK, BMP, CBC, BNP, HEPATIC, HS TROP #### [facility] [address] Protein [Mass/Vol] 7.4 g/dL Normal 6.4-8.9 [facility] Comment on above: Order Comment: THERE WAS NOT A CBC DRAWN PT PASSED OUT BEFORE IT WAS DRAWN Performed By: #### D DIMER, PT, PTT, CK, BMP, CBC, BNP, HEPATIC, HS TROP #### [facility] [address] Sodium [Moles/Vol] 139 mmol/L Normal 136-145 [facility] Comment on above: Order Comment: THERE WAS NOT A CBC DRAWN PT PASSED OUT BEFORE IT WAS DRAWN Performed By: #### D DIMER, PT, PTT, CK, BMP, CBC, BNP, HEPATIC, HS TROP #### [facility] [address] Urea nitrogen [Mass/Vol] 15 mg/dL Normal 7-25 [facility] Comment on above: Order Comment: THERE WAS NOT A CBC DRAWN PT PASSED OUT BEFORE IT WAS DRAWN Performed By: #### D DIMER, PT, PTT, CK, BMP, CBC, BNP, HEPATIC, HS TROP #### [facility] [address] [place] [phone] [place] Calcium [Mass/volume] in Ser um or PlasmaOrdered By: Carlitos Nguyen on 04-25-2023 Calcium [Mass/Vol] 9.9 mg/dL 8.6-10.3 [facility] Carbon dioxide, total [Moles /volume] in Serum or PlasmaOrdered By: Carlitos Nguyen on 04-25-2023 CO2 [Moles/Vol] 25.9 mmol/L 21.0-31.0 [facility] Chloride [Moles/volume] in S colin or PlasmaOrdered By: Carlitos Nguyen on 04-25-2023 Chloride [Moles/Vol] 105 mmol/L 98-107 [facility] Cholesterol [Mass/volume] in Serum or PlasmaOrdered By: Carlitos Nguyen on 04-25-2023 Cholesterol [Mass/Vol] 208 mg/dL 140-200 [facility] Comment on above: Chol less than 200 m g/dl low riskChol 201-239 mg/dl borderline riskChol 240 mg/dl and greater high risk Cholesterol in LDL Calc [Mas s/Vol]Ordered By: Carlitos Nguyen on 04-25-2023 Cholesterol in LDL [Mass/Vol] 136 mg/dL 0-100 [facility] Comment on above: LDL ATP III CLASSIFI CATIONLDL less than 100 mg/dL OptimalLDL 100-129 mg/dL Near or above optimalLDL 130-159 mg/dL Borderline highLDL 160-189 mg/dL HighLDL greater than 189 mg/dL Very high Cholesterol in VLDL Calc [Ma ss/Vol]Ordered By: Carlitos Nguyen on 04-25-2023 Cholesterol in VLDL [Mass/Vol] 16 mg/dL [facility] Creatinine [Mass/volume] in Serum or PlasmaOrdered By: Carlitos Nguyen on 04-25-2023 Creatinine [Mass/Vol] 0.81 mg/dL 0.60-1.20 [facility] Globulin Calc (S) [Mass/Vol] Ordered By: Carlitos Nguyen on 04-25-2023 Globulin (S) [Mass/Vol] 2.6 g/dL [facility] Glucose [Mass/volume] in Ser um or PlasmaOrdered By: Carlitos Nguyen on 04-25-2023 Glucose [Mass/Vol] 84 mg/dL 70-100 [facility] Lipid Profileon 04-25-2023 Cholesterol [Mass/Vol] 208 mg/dL High 140-200 [facility] Comment on above: Order Comment: THERE WAS NOT A CBC DRAWN PT PASSED OUT BEFORE IT WAS DRAWN Result Comment: Chol less than 200 mg/dl low risk Chol 201-239 mg/dl borderline risk Chol 240 mg/dl and greater high risk Performed By: #### D DIMER, PT, PTT, CK, BMP, CBC, BNP, HEPATIC, HS TROP #### [facility] [address] Cholesterol in HDL [Mass/Vol] 55 mg/dL Normal 23-92 [facility] Comment on above: Order Comment: THERE WAS NOT A CBC DRAWN PT PASSED OUT BEFORE IT WAS DRAWN Result Comment: HDL CHOL ATP-III CLASSIFICATION Cardiovascular Risk HDL > or equal to 60 mg/dL LOW HDL < 40 mg/dL HIGH Performed By: #### D DIMER, PT, PTT, CK, BMP, CBC, BNP, HEPATIC, HS TROP #### [facility] [address] Cholesterol.total/Chol esterol in HDL [Mass ratio] 3.8 {ratio} Normal <5.0 [facility] Comment on above: Order Comment: THERE WAS NOT A CBC DRAWN PT PASSED OUT BEFORE IT WAS DRAWN Result Comment: PERF ORMED BY: [place] [address] PATHOLOGIST [employer] C[employer] OFE ELLIS M.D. Performed By: #### D DIMER, PT, PTT, CK, BMP, CBC, BNP, HEPATIC, HS TROP #### [facility] [address] LDL Cholesterol,Calculated 136 mg/dL High 0-100 [facility] Comment on above: Order Comment: THERE WAS NOT A CBC DRAWN PT PASSED OUT BEFORE IT WAS DRAWN Result Comment: LDL ATP III CLASSIFICATION LDL less than 100 mg/dL Optimal LDL 100-129 mg/dL Near or above optimal LDL 130-159 mg/dL Borderline high LDL 160-189 mg/dL High LDL greater than 189 mg/dL Very high Performed By: #### D DIMER, PT, PTT, CK, BMP, CBC, BNP, HEPATIC, HS TROP #### [facility] [address] Triglyceride w/Reflex 83 mg/dL Normal 0-149 [facility] Comment on above: Order Comment: THERE WAS NOT A CBC DRAWN PT PASSED OUT BEFORE IT WAS DRAWN Result Comment: TRIG ATP III CLASSIFICATION TRIG less than 150 mg/dL Normal TRIG 150-199 mg/dL Borderline high TRIG 200-500 mg/dL High TRIG greater than 500 mg/dL Very high Standard traceable to the Center for Disease Conrtrol and Prevention (CDC) test method. Performed By: #### D DIMER, PT, PTT, CK, BMP, CBC, BNP, HEPATIC, HS TROP #### [facility] [address] VLDL CHOLESTEROL 16 mg/dL Normal [facility] Comment on above: Order Comment: THERE WAS NOT A CBC DRAWN PT PASSED OUT BEFORE IT WAS DRAWN Performed By: #### D DIMER, PT, PTT, CK, BMP, CBC, BNP, HEPATIC, HS TROP #### [facility] [address] Nicotine Metabolite, [place] 04-25-2023 Nicotine Metabolite Negative Normal Cutoff=25 [facility] Comment on above: Result Comment: Perf ormed at: [facility] - [facility] [address] [id number] [employer] Teacher: Amelia Cortes MD, Phone: [phone] PERFORMED BY: [place] [address] PATHOLOGIST [employer] C[employer] OFE ELLIS M.D. Performed By: #### D DIMER, PT, PTT, CK, BMP, CBC, BNP, HEPATIC, HS TROP #### [facility] [address] No Panel InformationOrdered By: aCrlitos Nguyen on 04-25-2023 Estimated GFR (CKD-EPI) > 60.0 mL/Min [facility] Creatinine Clearance (Chem N/A [facility] Potassium [Moles/volume] in Serum or PlasmaOrdered By: Carlitos Nguyen on 04-25-2023 Potassium [Moles/Vol] 4.3 mmol/L 3.5-5.1 [facility] Comment on above: Hemolysis is present at a level that could interfere with the result. Protein [Mass/volume] in Ser um or PlasmaOrdered By: Carlitos Nguyen on 04-25-2023 Protein [Mass/Vol] 7.4 g/dL 6.4-8.9 [facility] Serum or plasma albumin/glob ulin mass ratioOrdered By: Carlitos Nguyen on 04-25-2023 Albumin/Globulin [Mass ratio] 1.8 {ratio} [facility] Serum or plasma anion gap de terminationOrdered By: Carlitos Nguyen on 04-25-2023 Anion gap [Moles/Vol] 12.4 mmol/L 6.0-15.0 [facility] Serum or plasma high density lipoprotein (HDL) cholesterol measurementOrdered By: Carlitos Nguyen on 04-25-2023 Cholesterol in HDL [Mass/Vol] 55 mg/dL 23-92 [facility] Comment on above: HDL CHOL ATP-III CLA SSIFICATION Cardiovascular RiskHDL > or equal to 60 mg/dL LOWHDL < 40 mg/dL HIGH Serum or plasma total choles terol/high density lipoprotein (HDL) cholesterol mass ratOrdered By: Carlitos Nguyen on 04-25-2023 Cholesterol.total/Chol esterol in HDL [Mass ratio] 3.8 {ratio} <5.0 [facility] Sodium [Moles/volume] in Ser um or PlasmaOrdered By: Carlitos Nguyen on 04-25-2023 Sodium [Moles/Vol] 139 mmol/L 136-145 [facility] Triglyceride [Mass/volume] i n Serum or PlasmaOrdered By: Carlitos Nguyen on 04-25-2023 Triglyceride [Mass/Vol] 83 mg/dL 0-149 [facility] Comment on above: TRIG ATP III CLASSIF ICATIONTRIG less than 150 mg/dL NormalTRIG 150-199 mg/dL Borderline highTRIG 200-500 mg/dL High TRIG greater than 500 mg/dL Very highStandard traceable to the Center for Disease Conrtrol and Prevention (CDC) test method. Urea nitrogen [Mass/volume] in Serum or PlasmaOrdered By: Carlitos Nguyen on 04-25-2023 Urea nitrogen [Mass/Vol] 15 mg/dL 7-25 [facility] XR chest 2V*on 01-18-2023 XR chest 2V* [facility] [address] [address] XRay Report Signed Patient: Madyson Schmid MR#: [id number] : 2000 Acct:[id number] Age/Sex: 22 / F ADM Date: 01/18/23 Loc: [place] Room: Type: REG REF Attending Dr: Christina Perez APRN Copies to: Christina Perez APRN Ordering Provider: Christina Perez APRN Date of Service: 01/18/23 XR/XR chest 2V*: EMPLOYMENT PHYSICAL/POSITIVE QUANTIFERON TEST/RULE OUT TB PA AND LATERAL CHEST: CLINICAL HISTORY: Positive TB test. COMPARISON: 05/03/2022 There is no focal parenchymal consolidation, effusion or pneumothorax. The cardiac, hilar and mediastinal silhouettes are within normal limits. There is no vascular congestion. The visualized bony thorax is intact. XR/XR chest 2V* IMPRESSION: NO ACUTE FINDINGS OR RADIOGRAPHIC EVIDENCE OF PULMONARY TUBERCULOSIS. Impression dictated by: Camilla Damon M.D.01/18/2023 4:12 PM Dictation Location: [place] [address] Transcribed By: [facility] 01/18/23 161 Dictated By: Camilla Damon MD 01/18/23 161 Signed By: 01/18/231611 [facility] Tobacco Screening.on 023 Adult depression screening assessment No [facility] 320 DO Work Phone: Fall risk assessment a) No falls within the last year [facility] 320 DO Work Phone: Tobacco use status [facility] b) No [facility] 320 DO Work Phone: Office Visit (Cardiology)on 09-11-2022 Follow-up visit Diagnoses/Problems Assessed Autonomic orthostatic hypotension (458.0) (I95.1) Abnormal tilt table test (794.09) (R94.09) Encounter for medication counseling (V65.49) (Z71.89) Encounter to discuss test results (V65.49) (Z71.2) Never a smoker Personal history of COVID-19 (V12.09) (Z86.16) Class 1 obesity with body mass index (BMI) of 32.0 to 32.9 in adult (278.00,V85.32) (E66.9,Z68.32) Orders Class 1 obesity with body mass index (BMI) of 32.0 to 32.9 in adult Healthy Weight Tips; Status:Complete; Done: [id number] SocHx: Never a smoker Tobacco Use Screening; Status:Complete; Done: [id number] Patient Instructions Please bring all medicines, vitamins, and herbal supplements with you when you come to the office. Prescriptions will not be filled unless you are compliant with your follow up appointments or have a follow up appointment scheduled as per instruction of your physician. Refills should be requested at the time of your visit. test results discussed Follow up as needed only will follow with Dr. Maza Chief Complaint MADYSON SCHMID is being seen for a 2 month follow-up of. History of Present Illness Most recently seen by me July 10 2022, saw EP 07/21/2022, reviewed notes by EP reviewed laboratory data, patient continues to have profound lightheadedness with sudden changes in posture, she did have 1 episode of syncope in the recent past while she was bending over and straightening herself up. At the suggestion of parents she did get a second opinion in [place], and no change in medication was suggested EP recommended Zio patch, she developed a rash, she is continuing the extended monitoring. She had some inflammatory symptoms in her knees, and was just started on methotrexate. She says that her blood pressure has been higher since the methotrexate was started. I suspect that the the blood pressure improved with initiation of droxidopa. Patient could not tolerate Florinef or ProAmatine, and she has not tolerated beta-quentin either. At this point, patient will continue management per EP service, and she can see me on an as-needed basis. I suggested that she continue attempts at getting some type of regular aerobic activity. Even if it is for short periods of time, she should do some aerobic activity, because this will help her symptoms and help with cardiovascular conditioning. History so far : 1. Multiple bouts of syncope, always while upright, along with some orthostatic lightheadedness every morning. Baseline blood pressure is on the low side. 2. Increasing episodes of sudden onset of severe shortness of breath sometimes preceded by chest tightness-etiology is unclear, frequency is increasing, duration is also increasing 3. Palpitations, with positive findings on Holter monitor 4. Structurally normal heart with functionally normal valves and structurally normal valves, RVSP estimated at 25 mmHg at rest. 5. Increased BMI 6.pulmonary function testing April 2022-DLCO 27.3 which is 103% predicted, FEV1 over FVC 69% which is moderately decreased, FEF 2575 1.89 m/s which is 50% predicted. No response to bronchodilators. The study was reported to be consistent with chronic persistent asthma. 7.Pt is on control pills. 8. Stress echocardiogram April 2022-normal good exercise tolerance appropriate hemodynamic response to exercise LVEF 55% no mitral regurgitation or LVOT obstruction at peak exercise hyperdynamic LV with ejection fraction of 85% patient exercised for 12 minutes and achieved 98% of her age-predicted maximum heart rate. Test was terminated due to fatigue. 9. Echocardiogram April 2022-normal chamber dimensions normal LV function RV systolic pressure 70 mmHg LV wall thickness and chamber dimensions normal left atrial diameter 3.5 cm 10. 30-day event monitor March 2022 patient triggered episodes all corresponded to normal sinus rhythm in the 70s and 80s and occasionally sinus tachycardia. No bradycardia dysrhythmias. Palpitations sometimes corresponded to sinus tachycardia overall the symptoms are very frequent with paucity of objective findings on the monitor 11. Abnormal tilt table test, with a combination of cardioinhibitory and vasodepressive episode, she had low blood pressure and a heart rate of 34 6 minutes post sublingual nitroglycerin. 12. Severe orthostatic hypotension with a blood pressure drop from 99 systolic to 72 systolic and heart rate increased from 60-1 22. 13. Intolerance to Florinef-GI upset 14. Intolerance to ProAmatine This patient has neurally mediated syncope near syncope profound orthostatic dizziness that is affecting her quality of life. She has preserved LV systolic function. She has multiple medication intolerances. Lifestyle modifications have been reiterated. She is continuing that. She was just started on droxidopa at a lower dose. She was not orthostatic in office today. Her event monitor from July 2022 had 66 patient events no triggered events all rhythms were sinus sometime (more content not included)... Normal [email or web address] Tobacco Screening.on 022 Tobacco use status [facility] b) No [facility] 250 DO Work Phone: Cardiovasc Arrhythmia Result son 07-31-2022 Cardiovasc Arrhythmia Results Reason For Visit MADYSON is here for the application of a [employer] monitor. Ordering Physician: Dr. Maza Diagnosis: abn TTT, dyspnea, syncope, autonomic orthostatic hypotension NO equipment agreement signed. MADYSON hendricks monitor is to be returned on: 08/14/22 Monitor number [id number] applied. Procedure Date I received for dictation 08/25/22 Indication for test - syncope 66 patient events 0 triggered events All rhythms are sinus rhythm, sinus rhythm with isolated PAC's, or sinus tachycardia Average HR 80 bpm Maximal HR 167 bpm, sinus tachycardia at 09:01 AM Minimal HR 45 bpm, bradycardia at 3:35 PM The frequency of PVC's was rare Less than 1 % PVC's The frequency of PAC's was rare Less than 1 % PAC's Imp: No clinically significant rhythm. Clinical correlation recommended. Diagnosis/Problems Assessed Syncope, unspecified syncope type (780.2) (R55) Abnormal tilt table test (794.09) (R94.09) Autonomic orthostatic hypotension (458.0) (I95.1) Dyspnea (786.09) (R06.00) Future Appointments Date/TimeProviderSpecialt ySite 09/11/2022 09:30 Melodie Sylvester M[facility]iology[address] [place] 250 DO 10/13/2022 09:20 Annalee Russell MDCardiology[address] [place] 320 DO Signatures Electronically signed by : Annalee Maza MD; Aug 27 2022 10:31AM EST (Author) Reviewed by : Melodie Alcaraz MD; Aug 28 2022 10:26AM EST Normal [facility] Office Visit (Cardiology)on 07-21-2022 Follow-up visit Diagnoses/Problems Assessed Syncope, unspecified syncope type (780.2) (R55) PVC (premature ventricular contraction) (427.69) (I49.3) Abnormal tilt table test (794.09) (R94.09) Class 1 obesity with body mass index (BMI) of 33.0 to 33.9 in adult (278.00,V85.33) (E66.9,Z68.33) Encounter to establish care with new doctor (V65.8) (Z76.89) Encounter to discuss test results (V65.49) (Z71.2) Encounter for medication counseling (V65.49) (Z71.89) Never a smoker Mild intermittent asthma, unspecified whether complicated (493.90) (J45.20) Personal history of COVID-19 (V12.09) (Z86.16) Palpitation (785.1) (R00.2) Orders Autonomic orthostatic hypotension, Syncope, unspecified syncope type Renew: Midodrine HCl - 10 MG Oral Tablet; TAKE 1 TABLET 3 TIMES DAILY Class 1 obesity with body mass index (BMI) of 33.0 to 33.9 in adult Losing just 5 to 10 pounds may lower your risk of health problems.; Status:Complete - Retrospective Authorization; Done: 21Jul2022 Compression Stockings 15-20 mmHg; Status:Complete - Retrospective Authorization; Done: 21Jul2022 External ECG Recording (48 hr to 72 hr) Zio Patch; Status:Hold For - Scheduling,Retrospective Authorization; Requested for:21Jul2022; Health Maintenance Avoid alcoholic beverages.; Status:Complete - Retrospective Authorization; Done: 21Jul2022 Avoid foods and beverages that contain caffeine.; Status:Complete - Retrospective Authorization; Done: 21Jul2022 Begin or continue regular aerobic exercise. Gradually work up to at least 3 sessions of 30 minutes of exercise a week.; Status:Complete - Retrospective Authorization; Done: 21Jul2022 Diets that are low in carbohydrates and high in protein are very popular for weight loss.; Status:Complete - Retrospective Authorization; Done: 21Jul2022 Eat a low fat and low cholesterol diet.; Status:Complete - Retrospective Authorization; Done: 21Jul2022 Please bring all medicines, vitamins, and herbal supplements with you when you come to the office.; Status:Complete - Retrospective Authorization; Done: 21Jul2022 SocHx: Never a smoker Tobacco Use Screening; Status:Complete; Done: 21Jul2022 Patient Instructions Drink plenty of water daily, 80-100 oz daily. Increase Salt in your diet daily. Compression stockings. Follow up with Dr. Maza in August. Will order a 30 day Zio Patch. Stop Atenolol. Increase Midodrine 10mg 3 times a day. Take 2 5 mg tablets 3 times a day, a new 10mg prescription has been sent to your pharmacy. PT has an appointment with Dr. Chan Jiang in 1 week. Tammy Meehan CMA, am scribing for and in the presence of, Dr. Annalee Maza MA, FACC, FACP, FHRS. Chief Complaint Abnormal Tilt and syncope Adult Risk Screening Initial Fall Risk Screening: MADYSON has fallen in the last 6 months. Tobacco Screening: MADYSON does not use tobacco. Has not used tobacco in the past 6 months. History of Present Illness She is referred here by Dr. Alcaraz for electrophysiology evaluation of syncope The patient is here to discuss spells and possible need for placement of pacemaker. She has had 3 episodes of syncope in March 2021, July 2021, and October 2021. 1 episode occurred after she had gotten up at 6:30 in the morning in the RV to go to the bathroom. She felt a little funny as she was getting ready to wash her hands and then she found her self down on the bathroom floor. She reports being panic as she found her self on the floor. She cannot recall any other symptoms. Second episode occurred when she was walking up the stairs. The third episode occurred on postop day #0 after she had knee surgery for knee pain. Findings from surgery were scar tissue per her report She can feel dizzy, hot, or lightheaded if she stands for long period of time She was treated with atenolol which was increased up to 50 mg daily and she had dizziness. It was subsequently decreased down to 12.5 mg daily. Midodrine was initiated She has had chest tightness and shortness of breath. Episodes can last for several minutes. 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 She typically works from 4 PM to 10 PM. 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 The patient denies any dyspnea at rest, wheezing, or edema. See ROS, PMH, FMH, and surgical history for details. She was born 1 month premature and left hospital on time. She has a twin brother who has a heart murmur and has been transferred to [facility] There is no family history of SIDS, sudden cardiac , long QT, pacemaker, defibrillator, or drowning. Past medical history of COVID in August 2021 Acute on chronic knee pain with scar tissue found at time of surgery. She inquires what is an incomplete right bundle branch block. We discussed what is normal conduction in but ECG patterns show. Personal review of ECG and cardiac data (more content not included)... Normal [email or web address] Tobacco Screening.on Fall risk assessment b) One or more fall s in the last year [facility] 320 DO Work Phone: Tobacco use status [facility] b) No [facility] 320 DO Work Phone: Office Visit (Cardiology)on 07-10-2022 Follow-up visit Diagnoses/Problems Assessed Mild intermittent asthma, unspecified whether complicated (493.90) (J45.20) Hypotension (arterial) (458.9) (I95.9) Medication course changed (V58.69) (Z79.899) Abnormal tilt table test (794.09) (R94.09) Autonomic orthostatic hypotension (458.0) (I95.1) Dyspnea (786.09) (R06.00) Syncope, unspecified syncope type (780.2) (R55) *Orders Abnormal tilt table test, Autonomic orthostatic hypotension, Dyspnea, Syncope, unspecified syncope type Cardiology - Electrophysiology Referral Evaluation and Treatment Evaluate AND Treat Status: Active Requested for: 21Jul2022 AMA Intake Activity Log Entry by Mar Orourke ([email or web address]) on 2022-07-13 14:12 Status Change : Confirmed - SMN Module AMA Intake Activity Log Entry by Mar Orourke ([email or web address]) on 2022-07-13 14:12 Status Change: To Confirmed - N/A AMA Intake updated by [facility] (INTRANET) on 2022-07-11 22:02 New Recipient: Annalee Maza New Appointment Date: 2022-07-21 07:20 Autonomic orthostatic hypotension, Syncope, unspecified syncope type Changed: From To Midodrine HCl - 10 MG Oral Tablet TAKE 1 TABLET 3 TIMES DAILY Class 1 obesity with body mass index (BMI) of 31.0 to 31.9 in adult Avoid getting up or changing positions quickly.; Status:Complete; Done: 10Jul2022 Healthy Weight Tips; Status:Complete; Done: [id number] Some eating tips that can help you lose weight.; Status:Complete; Done: 10Jul2022 Dyspnea (786.09) (R06.00) Class 1 obesity with body mass index (BMI) of 31.0 to 31.9 in adult (278.00) (E66.9) Syncope, unspecified syncope type (780.2) (R55) Autonomic orthostatic hypotension (458.0) (I95.1) Abnormal tilt table test (794.09) (R94.09) Patient Instructions Please bring all medicines, vitamins, and herbal supplements with you when you come to the office. Prescriptions will not be filled unless you are compliant with your follow up appointments or have a follow up appointment scheduled as per instruction of your physician. Refills should be requested at the time of your visit. Follow up in 2 months The provider reviewed the following test(s) and result(s) with the patient: Tilt table Chief Complaint testing results History of Present Illness Pt was last seen by me on 05/18/22. She continues to have profound dizziness and syncope. She remains orthostatic with blood pressures as low as 72 mmHg systolic. Blood pressure goes from 99 systolic to 72 systolic, and heart rate goes from 60-1 22. She did see pulmonary service regarding her episodic shortness of breath, she was prescribed Flovent inhaler albuterol as needed, and was diagnosed with trivial asthma. She could not tolerate the Florinef because it caused significant GI upset. She last passed out in August 2022. Her tilt table test was abnormal and she had syncope 6 minutes post sublingual nitroglycerin, with no blood pressure and a heart rate of 34. History so far : 1. Multiple bouts of syncope, always while upright, along with some orthostatic lightheadedness every morning. Baseline blood pressure is on the low side. 2. Increasing episodes of sudden onset of severe shortness of breath sometimes preceded by chest tightness-etiology is unclear, frequency is increasing, duration is also increasing 3. Palpitations, with positive findings on Holter monitor 4. Structurally normal heart with functionally normal valves and structurally normal valves, RVSP estimated at 25 mmHg at rest. 5. Increased BMI 6.pulmonary function testing April 2022-DLCO 27.3 which is 103% predicted, FEV1 over FVC 69% which is moderately decreased, FEF 2575 1.89 m/s which is 50% predicted. No response to bronchodilators. The study was reported to be consistent with chronic persistent asthma. 7.Pt is on control pills. 8. Stress echocardiogram April 2022-normal good exercise tolerance appropriate hemodynamic response to exercise LVEF 55% no mitral regurgitation or LVOT obstruction at peak exercise hyperdynamic LV with ejection fraction of 85% patient exercised for 12 minutes and achieved 98% of her age-predicted maximum heart rate. Test was terminated due to fatigue. 9. Echocardiogram April 2022-normal chamber dimensions normal LV function RV systolic pressure 70 mmHg LV wall thickness and chamber dimensions normal left atrial diameter 3.5 cm 10. 30-day event monitor March 2022- patient triggered episodes all corresponded to normal sinus rhythm in the 70s and 80s and occasionally sinus tachycardia. No bradycardia dysrhythmias. Palpitations sometimes corresponded to sinus tachycardia overall the symptoms are very frequent with paucity of objective findings on the monitor 11. Abnormal tilt table test, with a combination of cardioinhibitory and vasodepressive episode, she had low blood pressure and a heart rate of 34 6 minutes post sublingual nitroglycerin. 12. Severe orthostatic hypotension with a blood pressure drop from 99 systolic to 72 systolic and heart rate increased from 6 (more content not included)... Normal [email or web address] Tobacco Screening.on 022 Tobacco use status [facility] b) No [facility] [facility] [address] DO Work Phone: COVID CepheidOrdered By: Daniele Pearce on 06-01-2022 SARS-CoV-2 (COVID-19) Ab IA Ql Negative Negative [facility] Comment on above: This is a duplicate [employer] Xpert Xpress CoV-2/Flu/RSV Plus RNA by RT-PCR result to be used for statistical tracking purpose only. SARS-CoV-2 (COVID-19) RNA PERFECTO+probe Ql (Unsp spec) [facility] Office Visit (Cardiology)on 05-18-2022 Follow-up visit Diagnoses/Problems Assessed Palpitation (785.1) (R00.2) Dyspnea (786.09) (R06.00) Abnormal PFT (794.2) (R94.2) Encounter to discuss test results (V65.49) (Z71.2) Class 1 obesity with body mass index (BMI) of 31.0 to 31.9 in adult (278.00,V85.31) (E66.9,Z68.31) Syncope, unspecified syncope type (780.2) (R55) Orders Class 1 obesity with body mass index (BMI) of 31.0 to 31.9 in adult Healthy Weight Tips; Status:Complete; Done: [id number] Some eating tips that can help you lose weight.; Status:Complete; Done: [id number] Dyspnea, Syncope, unspecified syncope type Urine Test; Status:Active - Retrospective By Protocol Authorization; Requested for:[id number]; Palpitation Start: Atenolol 25 MG Oral Tablet; TAKE 1 TABLET DAILY Syncope, unspecified syncope type Tilt Table; Status:Hold For - Scheduling,Retrospective By Protocol Authorization; Requested for:[id number]; Patient Instructions Please bring all medicines, vitamins, and herbal supplements with you when you come to the office. Prescriptions will not be filled unless you are compliant with your follow up appointments or have a follow up appointment scheduled as per instruction of your physician. Refills should be requested at the time of your visit. Patient has pulmonary follow up with Dr. Steen Hold atenolol two days prior to tilt table test. Increase dose to 50mg daily of atenolol if tolerates well. Follow up after testing The provider reviewed the following test(s) and result(s) with the patient: echocardiogram, treadmill exercise tolerance test and rosa, PFT Chief Complaint f/u testing. History of Present Illness Patient was first seen in March 2022 and presents for follow-up after testing. She is a 21-year-old female who was seen in cardiology consultation at the request of Ibis Colbert NP, for bouts of severe shortness of breath. She says that over the past couple of years she has had these episodes that would come sporadically and very infrequently. In the last several months the episodes are much more frequent. She cannot relate any precipitating factor such as exposure to extreme heat or humidity, recognized emotional distress, food, environmental pollutants, it never occurs at night, it is not related to activity or meals. She was wearing her 30-day event monitor she was on vacation part of the time, she was up washing up in the morning, passed out, the service did call me, this was sinus tachycardia but no other dysrhythmia. She refused ER. From what was described it sounded like a vasodepressor spell or a simple fainting spell. In the last 8 months she says she has passed out 3 times, one was while walking upstairs, in the morning to use the bathroom, the other episode was while she was on vacation, again she was up washing her face at the sink, and the third episode was in the morning while walking to the bathroom. She will see city detective in the near future, she had her pulmonary function test which I reviewed, there is concern for chronic asthma, but no reactive airway disease. She has 3 dogs that she had, and 1 cat at home. She is not orthostatic. She is feeling palpitations quite a bit. Results of the pulmonary function test and a [employer] was reviewed. Also reviewed stress test and echocardiogram results. At this point, her symptoms are pointing towards vasodepressor syncope, sinus tachycardia possibly inappropriate, possibly autonomic dysfunction. Shortness of breath may or may not be explained on the basis of the abnormalities on her pulmonary function testing. Assessment : 1. Multiple bouts of syncope, always while upright, along with some orthostatic lightheadedness every morning. Baseline blood pressure is on the low side. 2. Increasing episodes of sudden onset of severe shortness of breath sometimes preceded by chest tightness-etiology is unclear, frequency is increasing, duration is also increasing 3. Palpitations, with positive findings on Holter monitor 4. Structurally normal heart with functionally normal valves and structurally normal valves, RVSP estimated at 25 mmHg at rest. 5. Increased BMI 6.pulmonary function testing April 2022-DLCO 27.3 which is 103% predicted, FEV1 over FVC 69% which is moderately decreased, FEF 2575 1.89 m/s which is 50% predicted. No response to bronchodilators. The study was reported to be consistent with chronic persistent asthma. 7.Pt is on control pills. 8. Stress echocardiogram April 2022-normal good exercise tolerance appropriate hemodynamic response to exercise LVEF 55% no mitral regurgitation or LVOT obstruction at peak exercise hyperdynamic LV with ejection fraction of 85% patient exercised for 12 minutes and achieved 98% of her age-predicted maximum heart rate. Test was terminated due to fatigue. 9. Echocardiogram April 2022-normal chamber dimensions normal LV function RV systolic pressure 70 mmHg LV wall thickness and chamber dimensions normal left atrial diameter 3.5 c (more content not included)... Normal [email or web address] Tobacco Screening.on 022 Tobacco use status CPHS b) No [facility] [facility] 250 DO Work Phone: No Panel Informationon 05-03 [facility] 250 DO Work Phone: [facility] 250 DO Work Phone: Cardiovasc Arrhythmia Result son 03-28-2022 Cardiovasc Arrhythmia Results Reason For Visit Event Monitor: MADYSON is here for the application of a 30 day event monitor in office., Diagnosis: Palps, Dyspnea, Chest pain Ordering Physician: Enrollment sent to: [facility] Monitor number [id number] applied. Holter monitor printed and placed on Dr. Melodie Alcaraz MD desk to dictate. Procedure This is a 21-year-old with palpitations. [facility] was done for 30 days. Duration of monitoring was from 03 28 20-2 04/27/2022. During this timeframe there were 39 patient triggered episodes. Symptoms mostly included shortness of breath racing heart fluttering in the chest and chest pain. All of them corresponded to mostly normal sinus rhythm in the 70s and 80s and occasionally sinus tachycardia. Sometimes these episodes were associated with light activity sometimes at rest, in fact most of the symptoms were at rest, and heart rate was normal. On 04/15/2022, heart fluttering corresponded to sinus tachycardia at 133 bpm. Patient reported activity to be light at that time. On 04/15/2022 at 1:47 PM patient recorded fluttering and heart racing, activity was exercise, and heart rate was 170 bpm. On 04/15/2022 at 7:23 PM, there was an auto triggered event of narrow complex tachycardia most consistent with sinus tachycardia heart rate was 180 bpm, activity is not listed, and symptoms were not reported. There were no bradycardia episodes Summary: Multiple symptoms during the monitoring period mostly corresponding to normal sinus rhythm in the 70s and 80s, symptoms more at rest than with activity. There is sinus tachycardia noted associated with a sensation of heart fluttering, while patient was exercising, and heart rate was 170 bpm. A subsequent autotriggered strip reports no symptoms when heart rate is around 180 bpm. No ventricular dysrhythmia. No bradydysrhythmia. Clinical correlation suggested. Overall, patient's symptoms are very frequent, and there is a paucity of objective findings on his monitor. Diagnosis/Problems Assessed Chest pain, atypical (786.59) (R07.89) Dyspnea (786.09) (R06.00) Palpitation (785.1) (R00.2) Future Appointments Date/TimeProviderSpecialt [facility] 10:00 AMMaría Elena Freire MDCardiologySurgery [facility] 05/18/2022 09:15 Melodie Sylvester MDCardiology703 [facility] [address] 250 DO Signatures Electronically signed by : Melodie Alcaraz MD; May 01 2022 7:56PM EST (Author) Normal [facility] Laboratory - Chemistry and C hemistry - challengeOrdered By: Melodie Alcaraz on 03-24-2022 Natriuretic peptide B (Bld) [Mass/Vol] 27.0 pg/mL 5-100 [facility] No Panel InformationOrdered By: Melodie Alcaraz on 03-24-2022 D-Dimer Quantitative (PE/DVT) < 200 ng/mL 0-243 [facility] Comment on above: The reference range for D-dimer is <243 ng/mL D-dimer units. D-dimer results must be used in conjunction with a clinical pretest probability (PTP) assessment model for deep vein thrombosis (DVT) and pulmonary embolism (PE). Results <230 ng/mL d-dimer units can be used as a negative predictor in patients with low or moderate probability for DVT/PE. Results above the exclusion threshold of 230 ng/ml D-dimer units for DVT/PE may indicate the need for further diagnostic testing. D-Dimer can be increased in hospitalized patients due to co-morbid conditions. No Panel Informationon 03-24 0.70\S\0.70 Normal 0.45-5.33 [facility] [place] y 250 DO Work Phone: Comment on above: PERFORMED BY:[facility] [place], [place] [phone] MEDICAL DIRECTOROFE ELLIS M.D. 0.99\S\0.99 Normal 0.61-1.12 -[place] [facility] 250 DO Work Phone: 27.0\S\27.0 Normal 5-100 [facility] 250 DO Work Phone: Comment on above: PERFORMED BY:[facility] [place] [id number] MEDICAL DIRECTOROFE ELLIS M.D. < 200 Normal 0-243 [facility] 250 DO Work Phone: Comment on above: The reference range for D-dimer is <243 ng/mL D-dimer units. D-dimer results must be used in conjunction with a clinical pretest probability (PTP) assessment model for deep vein thrombosis (DVT) and pulmonary embolism (PE). Results <230 ng/mL d-dimer units can be used as a negative predictor in patients with low or moderate probability for DVT/PE. Results above the exclusion threshold of 230 ng/ml D-dimer units for DVT/PE may indicate the need for further diagnostic testing. D-Dimer can be increased in hospitalized patients due to co-morbid conditions.PERFORMED BY:[facility] [id number] [place], [place] [phone] MEDICAL DIRECTOROFE ELLIS M.D. TSH DL <= 0.005 mIU/L QnOrde red By: Melodie Alcaraz on 03-24-2022 TSH Qn 0.70 m[IU]/L 0.45-5.33 [facility] Thyroxine (T4) free [Mass/vo lume] in Serum or PlasmaOrdered By: Melodie Alcaraz on 03-24-2022 Free T4 [Mass/Vol] 0.99 ng/dL 0.61-1.12 [facility] Office Visit (Cardiology)on 03-23-2022 Follow-up visit Diagnoses/Problems Assessed Dyspnea (786.09) (R06.00) Class 1 obesity with body mass index (BMI) of 31.0 to 31.9 in adult (278.00,V85.31) (E66.9,Z68.31) Chest pain, atypical (786.59) (R07.89) Never a smoker Palpitation (785.1) (R00.2) Personal history of COVID-19 (V12.09) (Z86.16) PVC (premature ventricular contraction) (427.69) (I49.3) Patient new to provider Orders Chest pain, atypical, Dyspnea Cardiac Stress Test; Status:Hold For - Scheduling,Retrospective Authorization; Requested for:23Mar2022; Chest pain, atypical, Dyspnea, Palpitation IO Event Monitor 30 days; Status:Active - Perform Order,Retrospective Authorization; Requested for:23Mar2022; Class 1 obesity with body mass index (BMI) of 31.0 to 31.9 in adult Healthy Weight Tips; Status:Complete - Retrospective Authorization; Done: 23Mar2022 Some eating tips that can help you lose weight.; Status:Complete - Retrospective Authorization; Done: 23Mar2022 Dyspnea, Palpitation IO EKG Electrocardiogram- 12 Lead; Status:Complete; Done: 23Mar2022 Dyspnea, Palpitation, PVC (premature ventricular contraction) Xray Chest 2 View PA + Lateral; Status:Hold For - Scheduling,Retrospective Authorization; Requested for:23Mar2022; Radiologist to Determine Optimal Study : Y What are the patient's signs and symptoms? : chest pain, dyspnea, SocHx: Never a smoker Tobacco Use Screening; Status:Complete; Done: 23Mar2022 Patient Instructions By signing my name below, Margarita Meehan LPN, Scribe, attest that this documentation has been prepared under the direction and in the presence of Dr. Melodie Alcaraz MD. All medical record entries made by the Cierraibgloria were at my direction and personally dictated by me. I have reviewed the chart and agree that the record accurately reflects my personal performance of the history, physical exam, discussion and plan. Please bring all medicines, vitamins, and herbal supplements with you when you come to the office. Prescriptions will not be filled unless you are compliant with your follow up appointments or have a follow up appointment scheduled as per instruction of your physician. Refills should be requested at the time of your visit. PCP to refer patient and set up with pulmonology. Follow-up after testing completed Chief Complaint MADYSON SCHMID is being seen for a cardiovascular evaluation of abnormal test(s) results and dyspnea. History of Present Illness Patient is new to this provider. She is a 21-year-old female being seen in cardiology consultation at the request of Ibis Colbert NP, for bouts of severe shortness of breath. She says that over the past couple of years she has had these episodes that would come sporadically and very infrequently. In the last several months the episodes are much more frequent. She cannot relate any precipitating factor such as exposure to extreme heat or humidity, recognized emotional distress, food, environmental pollutants, it never occurs at night, it is not related to activity or meals. No symptoms of GERD no difficulty swallowing no fever chills cough or postnasal drip. She never smoked, but has been exposed to secondhand smoke from her mother. 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 Last week the episode was very severe, she was with her boyfriend, she was standing, she was at her boyfriend's house, the difficulty breathing, feeling of difficulty with aeration of the lungs was so intense that she started crying. Her boyfriend calmed her down. Without that she believes she would have started hyperventilating. The episode lasted about 15 minutes. It was around 6 PM, the weather was actually a little chilly, after the episode she felt cold. She works nights usually 4 PM to 10 PM. She was a twin at , she was 1 month premature, weight 5 pounds 4 ounces, she left hospital on time, her twin [facility] had [facility], and has history of heart murmur. Patient herself had COVID in August 2021, no hospitalization no pneumonia. She is currently on control pills, no history of DVT or pulmonary embolism. Her BMI is excessive. She is dealing with some issues with her knee, and of late has been reluctant to increase her activity level. Apparently she recently stopped hydroxychloroquine-I do not know the indication for this medication. Rheumatology advised the discontinuation. Review of systems is negative or noncontributory except as noted above. In addition no history of dysphagia, no history of any sensation of food getting stuck in the throat. No an anticipated weight loss or weight gain, she has been maintaining her weight. No stridor no audible wheezing. Review of systems is also noticeable for palpitations, and a sensation that the heart rate tends to run low. The low heart rate is frequently pic (more content not included)... Normal [facility] PHQ-2 VITALSon 03-23-2022 Adult depression screening assessment No [facility] y 250 DO Work Phone: Fall risk assessment c) Not medically indicated [facility] y 250 DO Work Phone: Tobacco use status CPHS b) No [facility] 250 DO Work Phone: ARMANI BY IFA WITH REFLEXon Nuclear Ab IF (S) [Titer] Negative Negative [facility] CCP ANTIBODY IGGon Cyclic citrullinated peptide IgG Qn <15 <20 Units [facility] Cyclic citrullinated peptide IgG Qnon 01-26-2022 CCP Antibody IgG Qualitative Negative Negative [facility] Nuclear Ab IA Ql (S)on 01-26 ARMANI by EIA, Qual Negative Negative [facility] ARMANI BY IFA WITH REFLEXon Nuclear Ab IF (S) [Titer] Negative Normal Negative [facility] Comment on above: Order Comment: Speci men Type: BLOOD SPECIMEN Ordering Facility: [facility] Address: [address] [place] [address] Result Comment: Anti -nuclear antibody test is used as an aid in diagnosis of systemic autoimmune diseases. Where positive and clinically warranted, follow-up using disease-specific testing is recommended. Low positive titers are not uncommon with advanced age, certain chronic infections, and malignancies among others. Test methodology: Indirect fluorescence immunoassay (IFA) using HEp-2 cells. Performed By: #### A NAIFR #### [facility] CLIA [id number] [address] [place] [address] [place] [address] [place] C-REACTIVE PROTEIN (CRP)on 0 01-25-2022 CRP [Mass/Vol] 0.4 mg/dL <0.9 mg/dL [facility] C1 ESTERASE INHIBITon 2021 C1 ESTERASE INHIBIT 26 mg/dL Normal 21-38 [facility] Comment on above: Order Comment: Speci men Type: BLOOD SPECIMEN Ordering Facility: [facility] Address: [address] [place] [address] Result Comment: Perf ormed By: [facility] [address] [place] [address] [employer] Loom Weaver: Brittni Moscoso MD Performed By: #### 1 6570-4, 96967-8, 92227-4, 69093-0, 01370-3, 72091-0, 81069-3, 07190-3 #### [facility] CLIA [id number] [address] [place] [address] [place] C2 COMPLEMENT BLDon 01-26-20 22 C2 COMPLEMENT 2.4 mg/dL Normal 1.6-4.0 [facility] Comment on above: Order Comment: Speci men Type: BLOOD SPECIMEN Ordering Facility: [facility] Address: [address] [place] [address] Result Comment: INTE RPRETIVE INFORMATION: Complement Component 2 Decreased C2 levels may be associated with increased susceptibility to infection (especially pneumococcal infections), systemic lupus erythematosus-like disease, rashes, arthritis and nephritis, and with C1-Esterase deficiency. Increased C2 levels are associated with the acute phase response. This test was developed and its performance characteristics determined by [facility]. It has not been cleared or approved by the [place] Food and Drug Administration. This test was performed in a CLIA certified laboratory and is intended for clinical purposes. Performed By: [facility] [address] [place] [address] [employer] Weaver: Brittni Moscoso MD Performed By: #### 1 6570-4, 08347-6, 94226-6, 33887-6, 12090-8, 74521-8, 66545-5, 08091-5 #### [facility] CLIA [id number] [address] [place] [address] [place] C3 COMPLEMENT BLDon 01-26-20 22 Complement C3 [Mass/Vol] 130 mg/dL 86 - 166 mg/dL [facility] C3 SerPl-mCncon 01-25-2022 Complement C3 [Mass/Vol] 130 mg/dL Normal 86-166 [facility] Comment on above: Order Comment: Speci men Type: BLOOD SPECIMEN Ordering Facility: [facility] Address: [address] [place] [address] Performed By: #### 1 6570-4, 60827-1, 55801-5, 89936-1, 34533-2, 36113-0, 99737-0, 10995-7 #### [facility] CLIA [id number] [address] [place] [address] [place] C4 COMPLEMENT BLDon 01-26-20 Complement C4 [Mass/Vol] 30 mg/dL 13 - 46 mg/dL [facility] C4 SerPl-mCncon 01-25-2022 Complement C4 [Mass/Vol] 30 mg/dL Normal 13-46 [facility] Comment on above: Order Comment: Speci men Type: BLOOD SPECIMEN Ordering Facility: [facility] Address: [address] [place] [address] Performed By: #### 1 6570-4, 17530-0, 72556-7, 94425-4, 55871-9, 27121-3, 03334-8, 26970-1 #### [facility] CLIA [id number] [address] [place] [address] [place] CBC panel Auto (Bld)on 01-25 Erythrocyte distribution width (RBC) [Ratio] 12.1 % Normal 11.5-15.0 [facility] Comment on above: Order Comment: Speci men Type: BLOOD SPECIMEN Ordering Facility: [facility] Address: [address] [place], [place] [address] Performed By: #### 1 6570-4, 87367-4, 68431-2, 28219-7, 36262-2, 89684-5, 23714-8, 54947-6 #### [facility] CLIA [id number] [address] [place] [address] [place] Hematocrit (Bld) [Volume fraction] 42.6 % Normal 36.0-46.0 [facility] Comment on above: Order Comment: Speci men Type: BLOOD SPECIMEN Ordering Facility: [facility] Address: [address] [place] [address] Performed By: #### 1 6570-4, 11067-9, 77636-4, 92475-8, 11876-5, 03048-1, 40595-3, 11753-4 #### [facility] CLIA [id number] [address] [place] [address] [place] Hemoglobin (Bld) [Mass/Vol] 13.8 g/dL Normal 11.5-15.5 [facility] Comment on above: Order Comment: Speci men Type: BLOOD SPECIMEN Ordering Facility: [facility] Address: [address] [place] [address] Performed By: #### 1 6570-4, 37273-2, 51692-8, 03801-3, 62864-9, 70208-5, 38166-3, 21605-0 #### [facility] CLIA [id number] [address] [place] [address] [place] MCH (RBC) [Entitic mass] 28.3 pg Normal 26.0-34.0 [facility] Comment on above: Order Comment: Speci men Type: BLOOD SPECIMEN Ordering Facility: [facility] Address: [address] [place] [address] Performed By: #### 1 6570-4, 95865-4, 43737-0, 42519-1, 10304-5, 02773-4, 18132-6, 84644-6 #### [facility] CLIA [id number] [address] [place] [address] [place] MCHC (RBC) [Mass/Vol] 32.4 g/dL Normal 30.5-36.0 [facility] Comment on above: Order Comment: Speci men Type: BLOOD SPECIMEN Ordering Facility: [facility] Address: [address] [place] [address] Performed By: #### 1 6570-4, 19022-9, 94571-3, 66067-3, 88946-0, 93901-3, 43755-0, 16353-4 #### [facility] CLIA [id number] [address] [place] [address] [place] MCV (RBC) [Entitic vol] 87.3 fL Normal 80.0-100.0 [facility] Comment on above: Order Comment: Speci men Type: BLOOD SPECIMEN Ordering Facility: [facility] Address: [address] [place] [address] Performed By: #### 1 6570-4, 83683-6, 05249-1, 77305-4, 44133-9, 58406-8, 16168-7, 08340-4 #### [facility] CLIA [id number] [address] [place] [address] [place] Nucleated RBC (Bld) [#/Vol] 10*3/uL Normal <0.01 [facility] Comment on above: Order Comment: Speci men Type: BLOOD SPECIMEN Ordering Facility: [facility] Address: [address] [place] [address] Performed By: #### 1 6570-4, 67322-2, 49750-7, 70377-2, 74722-9, 36408-4, 70693-9, 31011-9 #### [facility] CLIA [id number] [address] [place] [address] [place] Platelet mean volume (Bld) [Entitic vol] 10.3 fL Normal 9.0-12.7 [facility] Comment on above: Order Comment: Speci men Type: BLOOD SPECIMEN Ordering Facility: [facility] Address: [address] [place] [address] Performed By: #### 1 6570-4, 04542-3, 16431-0, 88263-3, 03531-0, 57586-4, 95956-9, 00192-6 #### [facility] CLIA [id number] [address] [place] [address] [place] Platelets (Bld) [#/Vol] 213 10*3/uL Normal 150-400 [facility] Comment on above: Order Comment: Speci men Type: BLOOD SPECIMEN Ordering Facility: [facility] Address: [address] [place] [address] Performed By: #### 1 6570-4, 86153-0, 81900-4, 96510-0, 93132-5, 92821-7, 15591-7, 93132-6 #### [facility] CLIA [id number] [address] [place] [address] [place] RBC (Bld) [#/Vol] 4.88 10*6/uL Normal 3.90-5.20 [facility] Comment on above: Order Comment: Speci men Type: BLOOD SPECIMEN Ordering Facility: [facility] Address: [address] [place] [address] Performed By: #### 1 6570-4, 80778-1, 12104-0, 19683-2, 29356-4, 64446-6, 24236-1, 07074-5 #### [facility] CLIA [id number] [address] [place] [address] [place] WBC (Bld) [#/Vol] 4.77 10*3/uL Normal 3.70-11.00 [facility] Comment on above: Order Comment: Speci men Type: BLOOD SPECIMEN Ordering Facility: [facility] Address: [address] [place] [address] Performed By: #### 1 6570-4, 57239-0, 34883-5, 21294-0, 07266-6, 86014-1, 58914-6, 60333-8 #### [facility] CLIA [id number] [address] [place] [address] [place] Erythrocyte distribution width (RBC) [Ratio] 12.1 % 11.5 - 15.0 % [facility] Hematocrit (Bld) [Volume fraction] 42.6 % 36.0 - 46.0 % [facility] Hemoglobin (Bld) [Mass/Vol] 13.8 g/dL 11.5 - 15.5 g/dL [facility] MCH (RBC) [Entitic mass] 28.3 pg 26.0 - 34.0 pg [facility] MCHC (RBC) [Mass/Vol] 32.4 g/dL 30.5 - 36.0 g/dL [facility] MCV (RBC) [Entitic vol] 87.3 fL 80.0 - 100.0 fL [facility] Nucleated RBC (Bld) [#/Vol] 10*3/uL <0.01 k/uL [facility] Platelet mean volume (Bld) [Entitic vol] 10.3 fL 9.0 - 12.7 fL [facility] Platelets (Bld) [#/Vol] 213 10*3/uL 150 - 400 k/uL [facility] RBC (Bld) [#/Vol] 4.88 10*6/uL 3.90 - 5.20 m/uL [facility] WBC (Bld) [#/Vol] 4.77 10*3/uL 3.70 - 11.00 k/uL [facility] CRP SerPl-ncon 01-25-2022 CRP [Mass/Vol] 0.4 mg/dL Normal <0.9 [facility] Comment on above: Order Comment: [facility] Type: BLOOD SPECIMEN Ordering Facility: [facility] Address: [address] [place] [address] Performed By: #### 1 6570-4, 03082-5, 54894-7, 88391-4, 99578-2, 23478-5, 70551-9, 13866-1 #### [facility] CLIA [id number] [address] [place], [place] [address] Centromere Ab IF Ql (S)on Centromere Ab Qn (S) <0.2 Normal <1.0 [facility] Comment on above: Order Comment: Jose Carlos oseguera Type: BLOOD SPECIMEN Ordering Facility: [facility] Address: [address], [place] [address] Result Comment: Anti -centromere antibody is used as in aid in diagnosis of systemic sclerosis. Clinical correlation is required. Test Methodology: Multiplex flow immunoassay. Performed By: #### 1 6570-4, 66090-6, 26972-4, 99144-9, 54163-7, 34927-0, 12952-3, 98250-9 #### [facility] CLIA [id number] [address] [place] [address] CENTROMERE AB QUAL Negative Normal Negative [facility] Comment on above: Order Comment: Speci men Type: BLOOD SPECIMEN Ordering Facility: [facility] Address: [address] [place] [address] Performed By: #### 1 6570-4, 97210-3, 44649-4, 89853-8, 73796-7, 77768-4, 41651-3, 64125-0 #### [facility] CLIA [id number] [address] [place] [address] Chromatin Ab Qnon 01-25-2022 CHROMATIN AB QUAL Negative Normal Negative [facility] Comment on above: Order Comment: Speci men Type: BLOOD SPECIMEN Ordering Facility: [facility] Address: [address] [place] [address] Performed By: #### 1 6570-4, 86546-2, 83856-8, 68828-8, 96667-0, 55646-9, 83668-7, 33467-5 #### [facility] CLIA [id number] [address] [place] [address] Chromatin Ab SerPl-aCncon Chromatin Ab Qn <0.2 Normal <1.0 [facility] Comment on above: Order Comment: Speci men Type: BLOOD SPECIMEN Ordering Facility: [facility] Address: [address] [place] [address] Result Comment: Test Methodology: Multiplex flow immunoassay. Performed By: #### 1 6570-4, 87923-9, 48081-6, 86160-4, 16264-1, 49503-6, 89733-8, 76204-2 #### [facility] CLIA [id number] [address] [place], [place] [address] [id number] [place] [address] OF [facility] Comprehensive metabolic 2000 panelon 01-25-2022 Albumin [Mass/Vol] 4.5 g/dL 3.9 - 4.9 g/dL [facility] ALP [Catalytic activity/Vol] 65 U/L 34 - 123 U/L [facility] ALT [Catalytic activity/Vol] 14 U/L 7 - 38 U/L [facility] Anion gap [Moles/Vol] 11 mmol/L 9 - 18 mmol/L [facility] AST [Catalytic activity/Vol] 14 U/L 13 - 35 U/L [facility] Bilirubin [Mass/Vol] 0.3 mg/dL 0.2 - 1 .3 mg/dL [facility] Calcium [Mass/Vol] 9.5 mg/dL 8.5 - 10. 2 mg/dL [facility] Chloride [Moles/Vol] 105 mmol/L 97 - 10 5 mmol/L [facility] CO2 [Moles/Vol] 26 mmol/L 22 - 30 mmol/L [facility] Creatinine [Mass/Vol] 0.71 mg/dL 0.58 - 0.96 mg/dL [facility] Estimated Glomerular Filtration Rate 125 mL/min/1.73m >=60 mL/min/1.7 3m [facility] Glucose [Mass/Vol] 94 mg/dL 74 - 99 mg/dL [facility] Potassium [Moles/Vol] 4.6 mmol/L 3.7 - 5.1 mmol/L [facility] Protein [Mass/Vol] 7.2 g/dL 6.3 - 8.0 g/dL [facility] Sodium [Moles/Vol] 142 mmol/L 136 - 144 mmol/L [facility] Urea nitrogen [Mass/Vol] 8 mg/dL 7 - 21 mg/dL [facility] Albumin [Mass/Vol] 4.5 g/dL Normal 3.9-4.9 [facility] Comment on above: Order Comment: Speci men Type: BLOOD SPECIMEN Ordering Facility: [facility] Address: [address] [place] [address] Performed By: #### 1 6570-4, 09087-0, 29567-4, 29771-9, 21338-0, 69997-9, 22634-9, 15155-3 #### [facility] CLIA [id number] [address] [place] [address] [place] ALP [Catalytic activity/Vol] 65 U/L Normal 34-123 [facility] Comment on above: Order Comment: Speci men Type: BLOOD SPECIMEN Ordering Facility: [facility] Address: [address] [place] [address] Performed By: #### 1 6570-4, 61348-8, 17492-3, 02381-8, 45583-4, 30185-7, 62511-1, 54203-5 #### [facility] CLIA [id number] [address] [place] [address] [place] ALT [Catalytic activity/Vol] 14 U/L Normal 7-38 [facility] Comment on above: Order Comment: Speci men Type: BLOOD SPECIMEN Ordering Facility: [facility] Address: [address] [place], [place] [id number] Performed By: #### 1 6570-4, 64466-9, 23821-8, 63844-7, 79319-9, 68352-5, 86230-7, 88327-4 #### [facility] CLIA [id number] [address] [place] [address] [place] Anion gap [Moles/Vol] 11 mmol/L Normal 9-18 [facility] Comment on above: Order Comment: Speci men Type: BLOOD SPECIMEN Ordering Facility: [facility] Address: [address] [place], [place] [id number] Performed By: #### 1 6570-4, 52785-8, 07797-4, 14158-1, 05366-4, 65590-7, 32142-3, 47215-9 #### [facility] CLIA [id number] [address] [place] [address] [place] AST [Catalytic activity/Vol] 14 U/L Normal 13-35 [facility] Comment on above: Order Comment: Speci men Type: BLOOD SPECIMEN Ordering Facility: [facility] Address: [address] [place] [address] Performed By: #### 1 6570-4, 78859-0, 69972-6, 01441-9, 30071-0, 82964-1, 69641-8, 04634-6 #### [facility] CLIA [id number] [address] [place] [address] [place] Bilirubin [Mass/Vol] 0.3 mg/dL Normal 0.2-1.3 [facility] Comment on above: Order Comment: Speci men Type: BLOOD SPECIMEN Ordering Facility: [facility] Address: [address] [place] [address] Performed By: #### 1 6570-4, 70535-8, 79782-1, 90708-7, 78638-7, 72244-5, 80330-0, 56371-2 #### [facility] CLIA [id number] [address] [place] [address] [place] Calcium [Mass/Vol] 9.5 mg/dL Normal 8.5-10.2 [facility] Comment on above: Order Comment: Speci men Type: BLOOD SPECIMEN Ordering Facility: [facility] Address: [address] [place], [place] [id number] Performed By: #### 1 6570-4, 63583-9, 88644-8, 93815-9, 80990-5, 75759-1, 27183-0, 31479-0 #### [facility] CLIA [id number] [address] [place] [address] [place] Chloride [Moles/Vol] 105 mmol/L Normal 97-105 [facility] Comment on above: Order Comment: Speci men Type: BLOOD SPECIMEN Ordering Facility: [facility] Address: [address] [place], [place] [address] Performed By: #### 1 6570-4, 34703-0, 58560-6, 88923-9, 46671-3, 51539-0, 18829-8, 13297-0 #### [facility] CLIA [id number] [address] [place] [address] [place] CO2 [Moles/Vol] 26 mmol/L Normal 22-30 [facility] Comment on above: Order Comment: Speci men Type: BLOOD SPECIMEN Ordering [facility]: [facility] Address: [address] [place], [place] [id number] Performed By: #### 1 6570-4, 71562-2, 25693-2, 64755-0, 13472-2, 79760-4, 33206-8, 93347-1 #### [facility] CLIA [id number] [address] [place] [address] [place] Creatinine [Mass/Vol] 0.71 mg/dL Normal 0.58-0.96 [facility] Comment on above: Order Comment: Speci men Type: BLOOD SPECIMEN Ordering Facility: [facility] Address: [address] [place] [address] Performed By: #### 1 6570-4, 39108-8, 53571-8, 46004-5, 21857-4, 75006-9, 13454-1, 22572-2 #### [facility] CLIA [id number] [address] [place] [address] OF [facility] ESTIMATED GLOMERULAR FILTRATION RATE 125 mL/min/1.73m??? Normal >=60 [facility] Comment on above: Order Comment: Speci men Type: BLOOD SPECIMEN Ordering Facility: [facility] Address: [address] [place], [place] [phone] Result Comment: Francesca mated Glomerular Filtration Rate (eGFR) is calculated using the 2020 CKD-EPI creatinine equation. This equation utilizes serum creatinine, sex, and age as parameters. The creatinine assay has traceable calibration to isotope dilution-mass spectrometry. Refer to KDIGO guidelines for clinical interpretation. In patients with unstable renal function, e.g. those with acute kidney injury, the eGFR may not accurately reflect actual GFR. Performed By: #### 1 6570-4, 79403-1, 52611-5, 45692-3, 63390-4, 63948-9, 47865-7, 65539-9 #### [facility] CLIA [id number] [address] [place] [address] [place] Glucose [Mass/Vol] 94 mg/dL Normal 74-99 [facility] Comment on above: Order Comment: Jose Carlos oseguera Type: BLOOD SPECIMEN Ordering Facility: [facility] Address: [address] [place] [address] Result Comment: The [place] Diabetes Association (ADA) provides guidance for cutoff values for fasting glucose and random glucose. The ADA defines fasting as no caloric intake for at least 8 hours. Fasting plasma glucose results between 100 to 125 mg/dL indicate increased risk for diabetes (prediabetes). Fasting plasma glucose results greater than or equal to 126 mg/dL meet the criteria for diagnosis of diabetes. In the absence of unequivocal hyperglycemia, results should be confirmed by repeat testing. In a patient with classic symptoms of hyperglycemia or hyperglycemic crisis, random plasma glucose results greater than or equal to 200 mg/dL meet the criteria for diagnosis of diabetes. Reference: Standards of Medical Care in Diabetes 2016, [place] Diabetes Association. Diabetes Care. 2016.39(Suppl 1). Performed By: #### 1 6570-4, 94388-1, 55833-7, 56006-1, 21774-4, 59778-1, 63785-5, 26204-5 #### [facility] CLIA [id number] [facility] [place] [id number] [place] Potassium [Moles/Vol] 4.6 mmol/L Normal 3.7-5.1 [facility] Comment on above: Order Comment: Jose Carlos oseguera Type: BLOOD SPECIMEN Ordering Facility: [facility] Address: [address] [place] [address] Performed By: #### 1 6570-4, 29801-7, 22884-1, 02932-8, 36991-6, 86770-8, 98312-2, 90921-3 #### [facility] CLIA [id number] [address] [place] [address] [place] Protein [Mass/Vol] 7.2 g/dL Normal 6.3-8.0 [facility] Comment on above: Order Comment: Speci men Type: BLOOD SPECIMEN Ordering [facility] Address: [address] [place] [address] Performed By: #### 1 6570-4, 48890-5, 43955-1, 35531-9, 20665-3, 44595-4, 27034-2, 33057-2 #### [facility] CLIA [id number] [address] [place] [address] [place] Sodium [Moles/Vol] 142 mmol/L Normal 136-144 [facility] Comment on above: Order Comment: Speci men Type: BLOOD SPECIMEN Ordering [facility]: [facility] Address: [address] [place] [address] Performed By: #### 1 6570-4, 19863-7, 31323-2, 32963-2, 72811-9, 07040-8, 80085-9, 87737-6 #### [facility] CLIA [id number] [address] [place] [address] [place] Urea nitrogen [Mass/Vol] 8 mg/dL Normal 7-21 [facility] Comment on above: Order Comment: Speci men Type: BLOOD SPECIMEN Ordering Facility: [facility] Address: [address] [place] [address] Performed By: #### 1 6570-4, 68442-4, 35178-9, 67779-7, 68128-6, 88690-6, 22671-8, 20516-8 #### [facility] CLIA [id number] [address] [place] [address] [place] Cyclic citrullinated peptide IgG Qnon 01-25-2022 [facility] ANTIBODY IGG QUALITATIVE Negative Normal Negative [facility] Comment on above: Order Comment: Speci men Type: BLOOD SPECIMEN Ordering [facility]: [facility] Address: [address] [place] [address] Performed By: #### 1 6570-4, 49736-8, 73792-9, 77742-1, 34085-7, 70688-2, 89442-7, 76646-6 #### [facility] CLIA [id number] [address] [place] [address] [place] Jo1 Ab Ser-aCncon 2021 Yuly-1 extractable nuclear Ab Qn (S) <0.2 Normal <1.0 [facility] Comment on above: Order Comment: Speci men Type: BLOOD SPECIMEN Ordering Facility: [facility] Address: [address] [place] [address] Performed By: #### 1 6570-4, 11817-7, 88475-9, 08401-4, 78529-3, 55127-9, 53871-2, 51097-2 #### [facility] CLIA [id number] [address] [place] [address] [place] DOUGHNUT [employer]TER MIXER Ab Ser-aCncon 2021 Ribonucleoprotein extractable nuclear Ab Qn (S) <0.2 Normal <1.0 [facility] Comment on above: Order Comment: Speci men Type: BLOOD SPECIMEN Ordering [facility]: [facility] Address: [address] [place] [address] Performed By: #### 1 6570-4, 88204-4, 03213-4, 47086-7, 23156-9, 40952-3, 97010-0, 06368-1 #### [facility] CLIA [id number] [address] [place] [address] [place] SM IgG Ser-aCncon 2021 Cota extractable nuclear IgG Qn (S) <0.2 Normal <1.0 [facility] Comment on above: Order Comment: Speci men Type: BLOOD SPECIMEN Ordering Facility: [facility] Address: [address] [place] [address] Performed By: #### 1 6570-4, 23984-2, 57876-1, 58823-6, 73056-0, 50639-1, 90679-6, 56577-4 #### [facility] CLIA [id number] [address] [place] [address] [place] SS-A Ab Ser-aCncon 01-25 Sjogrens syndrome-A extractable nuclear Ab Qn (S) <0.2 Normal <1.0 [facility] Comment on above: Order Comment: Speci men Type: BLOOD SPECIMEN Ordering [facility]: [facility] Address: [address] [place] [address] Result Comment: Test Methodology: Multiplex flow immunoassay. Performed By: #### 1 6570-4, 76931-6, 04459-1, 46054-5, 24634-5, 20295-8, 90803-7, 09689-3 #### [facility] CLIA [id number] [address] [place] [address] [place] SS-B Ab Ser-aCncon 01-25 Sjogrens syndrome-B extractable nuclear Ab Qn (S) <0.2 Normal <1.0 [facility] Comment on above: Order Comment: Speci ana rosa Type: BLOOD SPECIMEN Ordering Facility: [facility] Address: [address] [place] [address] Result Comment: Anti -SSB (anti-La) antibody is used as an aid in diagnosis of a variety of systemic autoimmune diseases, especially for Sjogren's syndrome and systemic lupus erythematosus. Clinical correlation is required. Test Methodology: Multiplex flow immunoassay. Performed By: #### 1 6570-4, 82064-6, 20031-8, 16390-4, 19152-7, 88323-6, 67297-1, 96519-7 #### [facility] CLIA [id number] [address] [place] [address] [place] ESR Westergren method (Bld) [Velocity]on 01-25-2022 ESR (Bld) [Velocity] 2 mm/h 0 - 20 mm/hr [facility] ESR (Bld) [Velocity] 2 mm/h Normal 0-20 [facility] Comment on above: Order Comment: Speci men Type: BLOOD SPECIMEN Ordering [facility]: [facility] Address: [address] [place] [address] Performed By: #### 1 6570-4, 95203-3, 29826-8, 70998-0, 99286-3, 46408-5, 35809-2, 87888-5 #### [facility] CLIA [id number] [address] [place] [address] [place] HBV core Ab Ser Qlon 022 HBV core Ab Ql (S) Negative Normal Negative [facility] Comment on above: Order Comment: Speci men Type: BLOOD SPECIMEN Ordering Facility: [facility] Address: [address] [place] [address] Result Comment: No e vidence of current or past infection with Hepatitis B virus. Should recent infection be suspected, repeat testing may be considered 3-4 weeks after this draw. Performed By: #### 1 6570-4, 93017-2, 14053-2, 15622-1, 23881-6, 52618-1, 49939-3, 17371-6 #### [facility] CLIA [id number] [address] [place] [address] [place] HBV surface Ab IA Ql (S)on 0 01-25-2022 HBV surface Ag Ql (S) Negative Normal Negative [facility] Comment on above: Order Comment: Speci men Type: BLOOD SPECIMEN Ordering [facility]: [facility] Address: [address] [place] [address] Performed By: #### 1 6570-4, 83112-4, 60606-5, 04092-4, 52787-4, 32843-4, 25994-9, 86749-4 #### [facility] CLIA [id number] [address] [place] [address] [place] HBV surface Ab Ser Qlon 05-0 HBV surface Ab Ql (S) Negative Normal Negative [facility] Comment on above: Order Comment: Speci men Type: BLOOD SPECIMEN Ordering Facility: [facility] Address: [address] [place] [address] Result Comment: No e vidence of current or past infection with Hepatitis B virus. Should recent infection be suspected, repeat testing may be considered 3-4 weeks after this draw. Performed By: #### 1 6570-4, 37654-8, 35911-2, 97593-8, 13695-1, 29767-4, 29825-3, 73997-1 #### [facility] CLIA [id number] [address] [place] [address] [place] HCV Ab Ser Qlon 01-25-2022 HCV Ab Ql (S) Negative Normal Negative [facility] Comment on above: Order Comment: Speci [facility] Type: BLOOD SPECIMEN Ordering Facility: [facility] Address: [address] [place] [address] Result Comment: The result suggests no evidence of active infection with Hepatitis C virus. Should recent infection be suspected, repeat testing may be considered 4-6 weeks after this draw. Performed By: #### 1 6570-4, 51194-6, 38665-7, 06002-4, 70324-8, 53988-5, 57806-4, 51010-2 #### [facility] CLIA [id number] [address] [place] [address] [place] Yuly-1 extractable nuclear Ab Qn (S)on 01-25-2022 YULY 1 ANTIBODY QUAL Negative Normal Negative [facility] Comment on above: Order Comment: Speci [facility] Type: BLOOD SPECIMEN Ordering [facility]: [facility] Address: [address] [place] [address] Result Comment: Anti -YULY-1 antibody is used as an aid in diagnosis of polymyositis and dermatomyositis especially with pulmonary involvement. A negative result cannot rule out polymyositis or dermatomyositis. Clinical correlation is required. Test Methodology: Multiplex flow immunoassay. Performed By: #### 1 6570-4, 10181-0, 28430-4, 09293-8, 41146-7, 43339-1, 90722-3, 89482-6 #### [facility] CLIA [id number] [address] [place] [address] [place] Nuclear Ab IA Ql (S)on 01-25 ARMANI BY EIA, QUAL Negative Normal Negative [facility] Comment on above: Order Comment: Speci men Type: BLOOD SPECIMEN Order[facility]: [facility] Address: [address] [place] [address] Result Comment: The qualitative antinuclear antibody screen test performed using enzyme immunoassay including the following antigens: dsDNA, histones, SS-A, SS-B, Sm, Sm/DOUGHNUT BATTER MIXER, Scl-70, Yuly-1, and centromeric antigens. Performed By: #### 1 6570-4, 60854-5, 14021-0, 76183-8, 56621-8, 79748-8, 80420-5, 55767-8 #### [facility] CLIA [id number] [address] [place] [address] [place] RHEUMATOID FACTOR BLon 01-25 Rheumatoid factor Qn [IU]/mL <16 IU/mL [facility] Rheumatoid factor Qn [IU]/mL Normal <16 [facility] Comment on above: Order Comment: Speci men Type: BLOOD SPECIMEN Ordering Facility: [facility] Address: [address] [place], [place] [phone] Performed By: #### 1 6570-4, 86741-2, 85333-9, 33166-9, 04034-9, 70070-9, 81347-8, 12190-3 #### [facility] CLIA [id number] [address] [place] [address] [place] Ribonucleoprotein extractabl e nuclear Ab Qn (S)on 01-25-2022 ANTI-DOUGHNUT BATTER MIXER QUAL Negative Normal Negative [facility] Comment on above: Order Comment: Jose Carlos oseguera Type: BLOOD SPECIMEN Order[facility] Address: [address] [place] [address] Performed By: #### 1 6570-4, 44566-5, 55959-0, 53468-0, 24153-6, 54175-2, 71039-7, 76741-1 #### [facility] CLIA [id number] [address] [place] [address] [place] RIBOSOMAL DOUGHNUT BATTER MIXER QUAL Negative Normal Negative [facility] Comment on above: Order Comment: Jose Carlos oseguera Type: BLOOD SPECIMEN Ordering [facility] Address: [address] [place] [address] Result Comment: Anti -Ribosomal RNA (Ribosomal P) antibody is used as an aid in diagnosis of systemic autoimmune diseases especially systemic lupus erythematosus and mixed connective tissue disease. Cross-reactivity with Anti-cota antibody is not uncommon. Clinical correlation is required. Test Methodology: Multiplex flow immunoassay. Performed By: #### 1 6570-4, 37677-7, 29244-4, 81548-8, 97617-5, 51189-1, 77505-4, 09828-8 #### [facility] CLIA [id number] [address] [place] [address] [place] SCL-70 extractable nuclear I gG IA Qn (S)on 01-25-2022 SCLERODERMA AB QUAL Negative Normal Negative [facility] Comment on above: Order Comment: Jose Carlos oseguera Type: BLOOD SPECIMEN Order[facility] Address: [address] [place] [address] Performed By: #### 1 6570-4, 17717-1, 25875-1, 82803-8, 90309-4, 03181-1, 07609-3, 53190-1 #### [facility] CLIA [id number] [address] [place] [address] [place] SCLERODERMA IGG AB <0.2 Normal <1.0 [facility] Comment on above: Order Comment: Speci men Type: BLOOD SPECIMEN Order[facility] Address: [address] [place] [address] Result Comment: Scl- 70/Scleroderma antibody test is used as an aid in diagnosis of systemic sclerosis especially the diffuse cutaneous form. A negative result cannot rule out systemic sclerosis. The final interpretation should consider clinical picture and other test results such as anti-centromere antibody. Test Methodology: Multiplex flow immunoassay. Performed By: #### 1 6570-4, 49614-8, 85728-2, 46697-6, 97770-3, 25488-1, 03543-2, 27587-3 #### [facility] CLIA [id number] [address] [place] [address] [place] Sjogrens syndrome-A extracta ble nuclear Ab Qn (S)on 01-25-2022 SSA ANTIBODY QUAL Negative Normal Negative [facility] Comment on above: Order Comment: Speci men Type: BLOOD SPECIMEN Order[facility] Address: [address] [place] [address] Performed By: #### 1 6570-4, 24042-0, 52091-1, 73307-4, 06982-3, 97712-9, 84070-5, 21175-9 #### [facility] CLIA [id number] [address] [place] [address] OF [place] Sjogrens syndrome-B extracta ble nuclear Ab Qn (S)on 01-25-2022 SSB ANTIBODY QUAL Negative Normal Negative [facility] Comment on above: Order Comment: Speci men Type: BLOOD SPECIMEN Order[facility] Address: [address] [place] [address] Performed By: #### 1 6570-4, 86950-3, 30409-6, 48790-2, 24272-0, 32412-1, 27022-2, 27740-4 #### [facility] CLIA [id number] [address] [place] [address] [place] Cota extractable nuclear Ig G Qn (S)on 01-25-2022 SM ANTIBODY QUAL Negative Normal Negative [facility] Comment on above: Order Comment: Jose Carlos oseguera Type: BLOOD SPECIMEN Order[facility] Address: [address] [place] [address] Result Comment: Anti -Sm (Cota) antibody is used as an aid in diagnosis of systemic lupus erythematosus and its presence is associated with renal disease. A negative result cannot rule out systemic lupus erythematosus. Clinical correlation is required. Test Methodology: Multiplex flow immunoassay. Performed By: #### 1 6570-4, 96810-5, 14025-5, 50226-2, 93691-3, 40203-8, 56349-0, 64203-3 #### [facility] CLIA [id number] [address] [place] [address] [place] cCP IgG SerPl-aCncon 022 Cyclic citrullinated peptide IgG Qn <15 Normal <20 [facility] Comment on above: Order Comment: Jose Carlos oseguera Type: BLOOD SPECIMEN Order[facility]: [facility] Address: [address] [place] [address] Performed By: #### 1 6570-4, 04279-2, 85658-4, 70479-8, 44400-8, 86932-5, 38371-6, 21270-8 #### [facility] CLIA [id number] [address] [place] [address] [place] XR ankle LT min 3V*on 2021 XR ankle LT min 3V* [facility] [employer] Other XR ankle LT min 3V* [facility] [employer] Other XR ankle LT min 3V* [address] [place] [address] [employer] Other XR ankle LT min 3V* [place], [place] [id number] [place] [address] [employer] Other XR ankle LT min 3V* [facility] [employer] Other XR ankle LT min 3V* Signed [employer] Other XR ankle LT min 3V* Patient: Madyson Schmid MR#: [id number] [employer] Other XR ankle LT min 3V* : 2000 Acct:[id number] [employer] Other XR ankle LT min 3V* Age/Sex: 20 / F ADM Date: 10/10/21 [employer] Other XR ankle LT min 3V* Loc: XDUCLY Room: pe: [facility] [employer] Other XR ankle LT min 3V* Attending Dr: Christina GONZALEZ [employer] Other XR ankle LT min 3V* Ordering Provider: CARLOS Santos [employer] Other XR ankle LT min 3V* Date of Service: 10/10/21 [employer] Other XR ankle LT min 3V* XR/XR ankle LT min 3V*: Acute left ankle pain [employer] Other XR ankle LT min 3V* Copies to: CARLOS Beckman [employer] Other XR ankle LT min 3V* Left ankle 10/10/2021. [employer] Other XR ankle LT min 3V* CLINICAL DATA: Left ankle pain after twisting injury. [employer] Other XR ankle LT min 3V* FINDINGS: 3 views of the left ankle were obtained. [employer] Other XR ankle LT min 3V* No acute fracture or dislocation is identified. No other bony abnormality is seen. Anterolateral [employer] Other XR ankle LT min 3V* soft tissue swelling is noted. [employer] Other XR ankle LT min 3V* X R/XR ankle LT min 3V* [employer] Other XR ankle LT min 3V* IMPRESSION: Soft tis cody swelling. No acute bony abnormality. [employer] Other XR ankle LT min 3V* Impression dictated by: Erick Cueto Jr., M.D.10/10/2021 4:24 PM [employer] Other XR ankle LT min 3V* Dictation Location: [place] [address] [employer] Other XR ankle LT min 3V* Transcribed By: MIRELLA 10/10/21 [facility] [employer] Other XR ankle LT min 3V* Dictated By: Erick Cueto Jr, MD 10/10/21 [facility] [employer] Other XR ankle LT min 3V* Signed By: [employer] Other XR ankle LT min 3V* 10/10/21 1624 No rt [employer] Other Vital Signs Date Time Vital Sign Value Performing Clinician Facility 11-30-2023 09:33-0500 Body height 165.1 cm Jyoti Dickey PA-C Work Phone: [facility] 11-30-2023 09:33-0500 Body weight 92.99 kg Jyoti Dickey PA-Akila Work Phone: [facility] 11-30-2023 09:33-0500 Diastolic blood pressure 79 mm[Hg] Jyoti TOLBERT-Akila Work Phone: [facility] 11-30-2023 09:33-0500 Heart rate 84 /min Jyoti TOLBERT-Akila Work Phone: [facility] 11-30-2023 09:33-0500 SaO2% (BldA) [Mass fraction] 96 % Jyoti Dickey TOMASZ-Akila Work Phone: [facility] 11-30-2023 09:33-0500 Systolic blood pressure 118 mm[Hg] Jyoti Dickey TOMASZ-C Work Phone: [facility] 06-13-2023 12:36-0400 Body height 165.1 cm Ibis A Blas Work Phone: [facility] DO Work Phone: 06-13-2023 12:36-0400 Body mass index (BMI) [Ratio] 33.28 kg/m2 Ibis A Blas Work Phone: [facility] [employer] 600 DO Work Phone: 06-13-2023 12:36-0400 Body surface area Derived from formula 1.98 m2 Ibis A Blas Work Phone: [facility] [employer] 600 DO Work Phone: 06-13-2023 12:36-0400 Body weight 90.72 kg Ibis A Blas Work Phone: [facility] [employer] 600 DO Work Phone: 06-13-2023 12:36-0400 Diastolic blood pressure 80 mm[Hg] Ibis A Blas Work Phone: [facility] [employer] 600 DO Work Phone: 06-13-2023 12:36-0400 Heart rate 76 /min Ibis A Blas Work Phone: [facility] [employer] 600 DO Work Phone: 06-13-2023 12:36-0400 Systolic blood pressure 116 mm[Hg] Ibis A Blas Work Phone: [facility] [employer] 600 DO Work Phone: 06-08-2023 21:50-0400 Diastolic blood pressure 59 mm[Hg] FREIGHT CONDUCTOR-C Ibis Blas Work Phone: [facility] 06-08-2023 21:50-0400 Heart rate 82 /min FREIGHT CONDUCTOR-C Ibis Blas Work Phone: [facility] 06-08-2023 21:50-0400 Respiratory rate 18 /min FREIGHT CONDUCTOR-C Ibis Blas Work Phone: [facility] 06-08-2023 21:50-0400 SaO2% (BldA) [Mass fraction] 99 % FREIGHT CONDUCTOR-C Ibis Blas Work Phone: [facility] 06-08-2023 21:50-0400 Systolic blood pressure 115 mm[Hg] FREIGHT CONDUCTOR-C Ibis Blas Work Phone: [facility] 06-08-2023 16:35-0400 Body height 165.1 cm FREIGHT CONDUCTOR-C Ibis Blas Work Phone: [facility] 06-08-2023 16:35-0400 Body temperature 97.8 [degF] FREIGHT CONDUCTOR-C Ibis Blas Work Phone: [facility] 06-08-2023 16:35-0400 Body weight 91.6 kg FREIGHT CONDUCTOR-C Ibis Blas Work Phone: [facility] 12-28-2022 15:00-0400 Body weight 89.36 kg Irvin Hanna MD Work Phone: [facility] 12-28-2022 15:00-0400 Diastolic blood pressure 86 mm[Hg] Irvin Hanna MD Work Phone: [facility] 12-28-2022 15:00-0400 Heart rate 79 /min Irvin Hanna MD Work Phone: [facility] 12-28-2022 15:00-0400 Respiratory rate 16 /min Irvin Hanna MD Work Phone: [facility] 12-28-2022 15:00-0400 Systolic blood pressure 119 mm[Hg] Irvin Hanna MD Work Phone: [facility] 10-13-2022 09:35-0500 Body height 165.1 cm Ibis A Blas Work Phone: [facility] 320 DO Work Phone: 10-13-2022 09:35-0500 Body mass index (BMI) [Ratio] 33.45 kg/m2 Ibis A Blas Work Phone: [facility] 320 DO Work Phone: 10-13-2022 09:35-0500 Body surface area Derived from formula 1.98 m2 Ibis A Blas Work Phone: [facility] 320 DO Work Phone: 10-13-2022 09:35-0500 Body weight 91.17 kg Ibis A Blas Work Phone: [facility] 320 DO Work Phone: 10-13-2022 09:35-0500 Diastolic blood pressure 70 mm[Hg] Ibis A Blas Work Phone: [facility] 320 DO Work Phone: 10-13-2022 09:35-0500 Heart rate 76 /min Ibis A Blas Work Phone: [facility] 320 DO Work Phone: 10-13-2022 09:35-0500 Systolic blood pressure 102 mm[Hg] Ibis A Blas Work Phone: [facility] 320 DO Work Phone: 09-11-2022 09:58-0500 Diastolic blood pressure 82 mm[Hg] Ibis A Blas Work Phone: [facility] 250 DO Work Phone: 09-11-2022 09:58-0500 Diastolic blood pressure 80 mm[Hg] Ibis A Blas Work Phone: [facility] 250 DO Work Phone: 09-11-2022 09:58-0500 Systolic blood pressure 112 mm[Hg] Ibis A Blas Work Phone: [facility] 250 DO Work Phone: 09-11-2022 09:58-0500 Systolic blood pressure 108 mm[Hg] Ibis A Blas Work Phone: [facility] 250 DO Work Phone: 09-11-2022 08:57-0500 Body height 165.1 cm Ibis A Blas Work Phone: [facility] 250 DO Work Phone: 09-11-2022 08:57-0500 Body mass index (BMI) [Ratio] 32.95 kg/m2 Ibis A Blas Work Phone: [facility] 250 DO Work Phone: 09-11-2022 08:57-0500 Body surface area Derived from formula 1.97 m2 Ibis A Blas Work Phone: [facility] 250 DO Work Phone: 09-11-2022 08:57-0500 Body weight 89.81 kg Ibis A Blas Work Phone: [facility] 250 DO Work Phone: 09-11-2022 08:57-0500 Diastolic blood pressure 68 mm[Hg] Ibis A Blas Work Phone: [facility] 250 DO Work Phone: 09-11-2022 08:57-0500 Heart rate 74 /min Ibis A Blas Work Phone: [facility] DO Work Phone: 09-11-2022 08:57-0500 Systolic blood pressure 102 mm[Hg] Ibis A Blas Work Phone: [facility] 250 DO Work Phone: 07-31-2022 10:14-0500 Body weight 89.81 kg Irvin Hanna MD Work Phone: [facility] 07-31-2022 10:14-0500 Diastolic blood pressure 71 mm[Hg] Irvin Hanna MD Work Phone: [facility] 07-31-2022 10:14-0500 Heart rate 92 /min Irvin Hanna MD Work Phone: [facility] 07-31-2022 10:14-0500 Systolic blood pressure 109 mm[Hg] Irvin Hanna MD Work Phone: [facility] 07-21-2022 07:27-0400 Body height 165.1 cm Ibis A Blas Work Phone: [facility] 320 DO Work Phone: 07-21-2022 07:27-0400 Body mass index (BMI) [Ratio] 33.45 kg/m2 Ibis A Blas Work Phone: [facility] 320 DO Work Phone: 07-21-2022 07:27-0400 Body surface area Derived from formula 1.98 m2 Ibis A Blas Work Phone: [facility] 320 DO Work Phone: 07-21-2022 07:27-0400 Body weight 91.17 kg Ibis A Blas Work Phone: [facility] 320 DO Work Phone: 07-21-2022 07:27-0400 Diastolic blood pressure 72 mm[Hg] Ibis A Blas Work Phone: [facility] 320 DO Work Phone: 07-21-2022 07:27-0400 Heart rate 64 /min Ibis A Blas Work Phone: [facility] 320 DO Work Phone: 07-21-2022 07:27-0400 Systolic blood pressure 106 mm[Hg] Ibis A Blas Work Phone: [facility] 320 DO Work Phone: 07-10-2022 10:45-0400 Body height 165.1 cm Ibis A Blas Work Phone: [facility] 250 DO Work Phone: 07-10-2022 10:45-0400 Body mass index (BMI) [Ratio] 32.95 kg/m2 Ibis A Blas Work Phone: [facility] 250 DO Work Phone: 07-10-2022 10:45-0400 Body surface area Derived from formula 1.97 m2 Ibis A Blas Work Phone: [facility] 250 DO Work Phone: 07-10-2022 10:45-0400 Body weight 89.81 kg Ibis A Blas Work Phone: [facility] 250 DO Work Phone: 07-10-2022 10:45-0400 Diastolic blood pressure 70 mm[Hg] Ibis A Blas Work Phone: [facility] 250 DO Work Phone: 07-10-2022 10:45-0400 Heart rate 76 /min Ibis A Blas Work Phone: [facility] 250 DO Work Phone: 07-10-2022 10:45-0400 Systolic blood pressure 104 mm[Hg] Ibis A Blas Work Phone: [facility] 250 DO Work Phone: 06-01-2022 11:36-0400 Body height 165.1 cm FREIGHT CONDUCTOR-C Ibis Blas Work Phone: [facility] 06-01-2022 11:36-0400 Body temperature 100 [degF] FREIGHT CONDUCTOR-C Ibis Blas Work Phone: [facility] 06-01-2022 11:36-0400 Body weight 88.4 kg FREIGHT CONDUCTOR-C Ibis Blas Work Phone: [facility] 06-01-2022 11:36-0400 Diastolic blood pressure 68 mm[Hg] FREIGHT CONDUCTOR-C Ibis Blas Work Phone: [facility] 06-01-2022 11:36-0400 Heart rate 99 /min FREIGHT CONDUCTOR-C Ibsi Blas Work Phone: [facility] 06-01-2022 11:36-0400 Respiratory rate 18 /min FREIGHT CONDUCTOR-C Ibis Blas Work Phone: [facility] 06-01-2022 11:36-0400 SaO2% (BldA) [Mass fraction] 97 % FREIGHT CONDUCTOR-C Ibis Blas Work Phone: [facility] 06-01-2022 11:36-0400 Systolic blood pressure 121 mm[Hg] FREIGHT CONDUCTOR-C Ibis Blas Work Phone: [facility] 05-18-2022 09:42-0400 Body height 165.1 cm Ibis A Blas Work Phone: [facility] 250 DO Work Phone: 05-18-2022 09:42-0400 Body mass index (BMI) [Ratio] 31.95 kg/m2 Ibis A Blas Work Phone: [facility] 250 DO Work Phone: 05-18-2022 09:42-0400 Body surface area Derived from formula 1.94 m2 Ibis A Blas Work Phone: [facility] 250 DO Work Phone: 05-18-2022 09:42-0400 Body weight 87.09 kg Ibis A Blas Work Phone: [facility] 250 DO Work Phone: 05-18-2022 09:42-0400 Diastolic blood pressure 74 mm[Hg] Ibis A Blas Work Phone: [facility] 250 DO Work Phone: 05-18-2022 09:42-0400 Heart rate 72 /min Ibis A Blas Work Phone: [facility] 250 DO Work Phone: 05-18-2022 09:42-0400 Systolic blood pressure 102 mm[Hg] Ibis A Blas Work Phone: [facility] 250 DO Work Phone: 03-23-2022 09:11-0400 Diastolic blood pressure 80 mm[Hg] Ibis A Blas Work Phone: [facility] 250 DO Work Phone: 03-23-2022 09:11-0400 Systolic blood pressure 110 mm[Hg] Ibis A Blas Work Phone: [facility] 250 DO Work Phone: 03-23-2022 09:06-0400 Body height 166.37 cm Ibis A Blas Work Phone: [facility] 250 DO Work Phone: 03-23-2022 09:06-0400 Body mass index (BMI) [Ratio] 31.3 kg/m2 Ibis A Blas Work Phone: [facility] 250 DO Work Phone: 03-23-2022 09:06-0400 Body surface area Derived from formula 1.95 m2 Ibis A Blas Work Phone: [facility] 250 DO Work Phone: 03-23-2022 09:06-0400 Body weight 86.64 kg Ibis A Blas Work Phone: [facility] 250 DO Work Phone: 03-23-2022 09:06-0400 Diastolic blood pressure 76 mm[Hg] Ibis A Blas Work Phone: [facility] 250 DO Work Phone: 03-23-2022 09:06-0400 Heart rate 66 /min Ibis A Blas Work Phone: [facility] 250 DO Work Phone: 03-23-2022 09:06-0400 Systolic blood pressure 118 mm[Hg] Ibis A Blas Work Phone: [facility] 250 DO Work Phone: 01-25-2022 08:16-0400 Body height 165.1 cm Irvin Hanna MD Work Phone: [facility] 01-25-2022 08:16-0400 Body weight 86.36 kg Irvin Hanna MD Work Phone: [facility] 01-25-2022 08:16-0400 Diastolic blood pressure 83 mm[Hg] Irvin Hanna MD Work Phone: [facility] 01-25-2022 08:16-0400 Heart rate 71 /min Irvin Hanna MD Work Phone: [facility] 01-25-2022 08:16-0400 Systolic blood pressure 116 mm[Hg] Irvin Hanna MD Work Phone: [facility] 01-10-2022 12:45-0400 Body height 165.1 cm Ok Mckeon Other [employer] Other 01-10-2022 12:45-0400 Body mass index (BMI) [Ratio] 31.61 kg/m2 Ok Christyrer Other [employer] Other 01-10-2022 12:45-0400 Body temperature 97.8 [degF] Ok Christyrer Other [employer] Other 01-10-2022 12:45-0400 Body weight 86.18 kg Ok Jaelynrer Other [employer] Other 01-10-2022 12:45-0400 Diastolic blood pressure 80 mm[Hg] Ok Christyrer Other [employer] Other 01-10-2022 12:45-0400 SaO2% (BldA) [Mass fraction] 96 % Ok Christyrer Other [employer] Other 01-10-2022 12:45-0400 Systolic blood pressure 120 mm[Hg] Ok Hansenehrer Other [employer] Other 10-10-2021 15:50-0500 Body height 165.1 cm Christina Pearce Other [employer] Other 10-10-2021 15:50-0500 Body mass index (BMI) [Ratio] 31.61 kg/m2 Christina Pearce Other [employer] Other 10-10-2021 15:50-0500 Body temperature 97 [degF] Christina Pearce Other [employer] Other 10-10-2021 15:50-0500 Body weight 86.18 kg Christina Pearce Other [employer] Other 10-10-2021 15:50-0500 Diastolic blood pressure 76 mm[Hg] Christina Portia Other [employer] Other 10-10-2021 15:50-0500 Respiratory rate 18 /min Christina Pearce Other [employer] Other 10-10-2021 15:50-0500 SaO2% (BldA) [Mass fraction] 99 % Christina Pearce Other [employer] Other 10-10-2021 15:50-0500 Systolic blood pressure 123 mm[Hg] Christina Pearce Other [employer] Other Encounters Encounter Date Encounter Type Care Provider Facility Start: 05-20-2024 End: 05-20-2024 ambulatory CAMILLA GASTON Not Available Start: 04-12-2024 End: 04-12-2024 ambulatory Celeste Watson Facility:[facility] Start: 04-12-2024 End: 04-12-2024 Patient encounter procedure Celeste Watson [facility] Start: 03-25-2024 End: 03-25-2024 ambulatory JB MANDUJANO Not Available Start: 03-20-2024 End: 03-20-2024 ambulatory Jyoti Dickey PA-C Work Phone: Neurology Comment on above: POTS (postural ortho static tachycardia syndrome) (Primary Dx) Start: 03-20-2024 End: 03-20-2024 Telemedicine consultation with patient Jyoti Dickey PA-C Work Phone: Neurology Start: 03-14-2024 End: 03-14-2024 ambulatory Celeste Watson Facility:[facility] Start: 03-14-2024 End: 03-14-2024 Patient encounter procedure Celeste Shirley [facility] Start: 02-26-2024 End: 02-26-2024 ambulatory JB Charlton NAZIA Not Available Start: 01-22-2024 ambulatory ADMINISTRATIVE OPERATIONS COORDINATOR Krista L Mae Facil ity:[facility] Start: 01-01-2024 End: 01-01-2024 ambulatory CELESTE WATSON Not Available Start: 12-21-2023 End: 12-21-2023 ambulatory CELESTE RINKES Not Available Start: 12-11-2023 End: 12-11-2023 ambulatory ADMINISTRATIVE OPERATIONS COORDINATOR Krista L Mae Facility: [facility] Start: 12-11-2023 End: 12-11-2023 ambulatory CELESTE FIGUEROAKES Not Available Start: 11-30-2023 End: 11-30-2023 ambulatory AURORA SANTIAGO Facility:[facility] Start: 11-30-2023 End: 11-30-2023 Patient encounter procedure Jyoti Dickey PA-C Work Phone: Neurology Comment on above: POTS (postural ortho static tachycardia syndrome) (Primary Dx) Start: 11-12-2023 End: 11-12-2023 Patient encounter procedure Autonomic 2 Neur Main [facility] Start: 11-12-2023 End: 11-12-2023 ambulatory AURORA SANTIAGO Neurology Comment on above: Procedure Start: 10-10-2023 End: 10-10-2023 ambulatory AURORA SANTIAGO Facility:[facility] Start: 07-24-2023 End: 07-24-2023 ambulatory Jocelin FELIX Facility:[facility] Start: 07-20-2023 Telephone encounter Arin Tinajero RN [facility] [place] Comment on above: Referral Follow-up Start: 07-10-2023 End: 07-10-2023 ambulatory JOSE ARMANDO GREY Facility:[facility] Start: 07-10-2023 End: 07-10-2023 Office outpatient new 30 minutes Jose Armando Rhonda Gardunoin DO Work Phone: [facility] [place] [facility] Comment on above: Chronic pain of righ t knee (Primary Dx); Tendinopathy of gluteal region Start: 07-06-2023 Orders Only Jose Armando Gardunoin DO Work Phone: Orthopaedics Comment on above: Right knee pain, uns pecified chronicity (Primary Dx) Start: 07-05-2023 End: 07-05-2023 ambulatory Nam Barnes Facility:[facility] Start: 07-05-2023 End: 07-05-2023 ambulatory FREIGHT CONDUCTOR-C Ibis Renteria Work Phone: [facility] Work Phone: Start: 07-05-2023 End: 07-05-2023 Patient encounter procedure FREIGHT CONDUCTOR-C Ibis Limer Work Phone: [facility]-Flu Vaccine Start: 06-13-2023 Office outpatient vi sit 15 minutes Ibis Limer Work Phone: -[facility] 600 DO Work Phone: Start: 06-13-2023 ambulatory Tabatha Cota Facility:[id number] Start: 06-08-2023 End: 06-08-2023 Emergency department patient visit Haris Martino Facility:[facility] Start: 06-08-2023 End: 06-08-2023 Emergency department patient visit FREIGHT CONDUCTOR-C Ibis Limer Work Phone: [facility]-Emergency Room Work Phone: Start: 04-25-2023 End: 04-25-2023 ambulatory Carlitos Nguyen Jr Facility:[facility] Start: 04-25-2023 End: 04-25-2023 ambulatory FREIGHT CONDUCTOR-C Ibis Maggy Blas Work Phone: [facility] Work Phone: Start: 04-25-2023 End: 04-25-2023 Departed Referred FREIGHT CONDUCTOR-C Ibis Blas Work Phone: [facility] [address] Work Phone: Start: 03-14-2023 ambulatory CHAN Luna cility:[facility] Start: 01-18-2023 End: 01-18-2023 ambulatory Christina Alejandro MittalPerez Facility:[facility] Start: 01-18-2023 End: 01-18-2023 ambulatory FREIGHT CONDUCTOR-C Ibis Maggy Arenasncer Work Phone: [facility] Work Phone: Start: 01-18-2023 End: 01-18-2023 Departed Referred FREIGHT CONDUCTOR-C Ibis Blas Work Phone: [facility] [address] Work Phone: Start: 12-28-2022 End: 12-28-2022 Patient encounter procedure Irvin Hanna MD Work Phone: Rheumatology Comment on above: Pain and swelling of knee, right (Primary Dx); Joint stiffness Start: 10-31-2022 Chart Update Ibis Ely cer Work Phone: [facility] 250 DO Work Phone: Start: 10-16-[address] Melodie Greeni ty:[id number] Start: 10-13-2022 Current tobacco non-user cad cap copd pv dm Ibis Renteria Work Phone: [facility] 320 DO Work Phone: Start: 10-13-[address] Annalee Pierre acility: Start: 09-11-2022 Office outpatient vi sit 15 minutes Ibis A Blas Work Phone: [facility] 250 DO Work Phone: Start: 09-11-2022 Patient encounter procedure Ibiseren Renteria Work Phone: [facility] 250 DO Work Phone: Start: 09-11-[address] Melodie Alfonso ty: Start: 09-07-2022 Telephone encounter Ibiseren Limer Work Phone: [facility] 320 DO Work Phone: Start: 08-27-[address] Annalee Pierre acility: Start: 08-01-2022 AUDIT Ibis Arenasn cer Work Phone: [facility] 320 DO Work Phone: Start: 07-31-2022 EVENT EZEKIEL, Provider : HERIBERTO SERRANO [employer] 1,[id number], Status: Pen, Time: 11:00 AM Ibisniharika Limer Work Phone: [facility] 250 DO Work Phone: Start: 07-31-[address] Annalee Pierre acility: Start: 07-31-2022 End: 07-31-2022 Patient encounter procedure Irvin Hanna MD Work Phone: Rheumatology Comment on above: Pain and swelling of knee, right (Primary Dx); Joint stiffness; Inflammatory arthritis Start: 07-26-2022 ambulatory IBIS RENTERIA Facilit y:[facility] Start: 07-21-2022 Current tobacco non-user cad cap copd pv dm Ibis Renteria Work Phone: [facility] 320 DO Work Phone: Start: 07-21-[address] Annalee Pierre acility: Start: 07-10-2022 Office outpatient vi sit 25 minutes Ibis A Blas Work Phone: [facility] 250 DO Work Phone: Start: 07-10-2022 Patient encounter procedure Ibis A Blas Work Phone: [facility] 250 DO Work Phone: Start: 07-10-[address] Melodie Alfonso ty: Start: 06-15-2022 Telephone encounter Ibis Ellis Blas Work Phone: [facility] 250 DO Work Phone: Start: 06-12-2022 End: 06-12-[address] Annalee Maza Facility:[id number] Start: 06-05-2022 Patient encounter procedure Ibis A Blas Work Phone: [id number] [place] [facility] Work Phone: Start: 06-01-2022 End: 06-01-2022 Emergency department patient visit FREIGHT CONDUCTOR-C Ibis Blas Work Phone: [facility]-Emergency Room Start: 05-18-2022 Office outpatient vi sit 25 minutes Ibis Ellis Blas Work Phone: [facility] 250 DO Work Phone: Start: 05-18-2022 Patient encounter procedure Ibis Rhonda Blas Work Phone: [facility] 250 DO Work Phone: Start: 05-08-2022 End: 05-08-2022 Patient encounter procedure FREIGHT CONDUCTOR-C Ibis Blas Work Phone: [facility]-Respiratory Therapy Start: 05-03-2022 Result Review Ibis A Spen cer Work Phone: [facility] 250 DO Work Phone: Start: 05-03-2022 [facility], Provider: María Elena Freire, Status: Pen, Time: 10:00 AM Ibis A Blas Work Phone: [facility] 250 DO Work Phone: Start: 05-03-2022 End: 05-03-2022 Patient encounter procedure FREIGHT CONDUCTOR-C Ibis Blas [facility] Start: 03-28-2022 EVENT EZEKIEL, Provider : HERIBERTO SINGH [employer] 1,[id number], Status: Pen, Time: 8:00 AM Ibis A Blas Work Phone: [facility] DO Work Phone: Start: 03-28-2022 Patient encounter procedure Ibis A Blas Work Phone: [facility] 250 DO Work Phone: Start: 03-26-2022 Chart Update Ibis A Spen cer Work Phone: [facility] DO Work Phone: Start: 03-24-2022 End: 03-24-2022 Patient encounter procedure FREIGHT CONDUCTOR-C Ibis Blas [facility] Start: 03-23-2022 Office consultation new/estab patient 60 min Ibis A Blas Work Phone: [facility] DO Work Phone: Start: 03-23-2022 Office outpatient ne w 45 minutes Ibis A Blas Work Phone: [facility] Work Phone: Start: 02-02-2022 Telephone encounter Irvin shannon MD Work Phone: Rheumatology Comment on above: Orders Start: 01-25-2022 End: 01-25-2022 Patient encounter procedure Irvin Hanna MD Work Phone: Rheumatology Comment on above: Pain and swelling of knee, right (Primary Dx); Joint stiffness Start: 01-10-2022 End: 01-10-2022 ambulatory Ok Mckeon Other [employer] Other Start: 01-10-2022 Office outpatient ne w 45 minutes Ok Mckeon [facility] Start: 10-10-2021 End: 10-10-2021 ambulatory Christina Pearce Other [employer] Other Start: 10-10-2021 Office outpatient vi sit 15 minutes Christina Pearce [facility] Procedures Date Procedure Procedure Detail Performing Clinician Start: 07-10-2023 [facility] Pr ovider Historical Start: 06-08-2023 Plain chest X-ray FREIGHT CONDUCTOR-C Ibis Blas Work Phone: Start: 01-18-2023 Plain chest X-ray FREIGHT CONDUCTOR-C Ibis Blas Work Phone: Start: 05-03-2022 Plain chest X-ray FREIGHT CONDUCTOR-C Ibis Blas Work Phone: Start: 08-05-2021 Arthroscopy of knee Lorna trangverenice Michelleradha Arthroscopy of knee Ibis A Blas Work Phone: Cryotherapy of warts Rajeev Watson Extraction of wisdom tooth Ibis A Blas Work Phone: SARS-CoV-2, Influenz a & RSV (PCR) FREIGHT CONDUCTOR-C Ibis Blas Work Phone: Tonsillectomy and adenoidectomy Ibis A Blas Work Phone: Tonsillectomy and adenoidectomy Celeste Michelleradha NEGATED: Highlighted row has not occurred! Total colonoscopy Ibis A Blas Work Phone: Plan of Treatment Date Care Activity Detail Author Start: 09-02-2024 End: 09-02-2024 ambulatory 09/02/2024 12:15 PM [facility] Neurology [address] [id number] Jyoti Dickey PA-C [address] [place] [address] F/u Neurology Comment on above: F/u Start: 04-20-2024 Urine microalbumin profile DTaP,Tdap,Td Vaccine (7 - Td or Tdap) [facility] Start: 09-24-2023 [facility] Start: 05-25-2023 Covid-19 Vaccine () Covid-19 Vaccine () [facility] Start: 05-25-2023 Influenza vaccination C [facility] Start: 04-25-2023 [facility] Start: 04-06-2023 [facility]UV, Provider: Annalee Maza, Status: Pen, Time: 2:40 PM FUV, Provider: Annalee Maza, Status: Pen, Time: 2:40 PM -[facility] [facility] DO Work Phone: Start: 2022 PAP TESTING PAP TESTING [facility] Start: 2022 Screening for malign ant neoplasm of cervix [facility] Start: 10-13-2022 FUV, Provider: Annalee Maza, Status: Pen, Time: 9:20 AM FUV, Provider: Annalee Maza, Status: Pen, Time: 9:20 AM [facility] 320 DO Work Phone: Start: 09-24-2022 DEPRESSION ASSESSMENT DEPRESSION ASS [facility] Start: 09-11-2022 FUV, Provider: Melodie Alcaraz, Status: Pen, Time: 9:30 AM FUV, Provider: Melodie Alcaraz, Status: Pen, Time: 9:30 AM -[facility] 250 DO Work Phone: Start: 09-11-2022 EVENT EZEKIEL, Provider : HERIBERTO SINGH [employer],[id number], Status: Pen, Time: 8:30 AM EVENT EZEKIEL, Provider: HERIBERTO [id number] [employer] 1,[id number], Status: Pen, Time: 8:30 AM -[facility] 320 DO Work Phone: Start: 08-14-2022 EVENT EZEKIEL, Provider : MONICA OIN [employer] 1,[id number], Status: Pen, Time: 10:00 AM EVENT EZEKIEL, Provider: [facility] [id number] [employer] 1,[id number], Status: Pen, Time: 10:00 AM -[facility] 250 DO Work Phone: Start: 07-21-2022 NPVRFRL, Provider: Annalee Maza, Status: Pen, Time: 7:20 AM NPVRFRL, Provider: Annalee Maza, Status: Pen, Time: 7:20 AM -[facility] 250 DO Work Phone: Start: 07-10-2022 FUV, Provider: Melodie Alcaraz, Status: Pen, Time: 10:45 AM FUV, Provider: Melodie Alacraz, Status: Pen, Time: 10:45 AM -[facility] 250 DO Work Phone: Start: 06-05-[address] [facility], Provider: Annalee Maza, Status: Pen, Time: 10:[address] [facility], Provider: Annalee Maza, Status: Pen, Time: 10:00 AM [facility] 250 DO Work Phone: Start: 05-25-2022 Influenza vaccination C [facility] Start: 05-18-2022 FUV, Provider: Melodie Alcaraz, Status: Pen, Time: 9:15 AM FUV, Provider: Melodie Alcaraz, Status: Pen, Time: 9:15 AM -[facility] 250 DO Work Phone: Start: 05-08-2022 End: 05-08-2022 Patient encounter procedure [facility] Start: 05-03-2022 SURGNONUH, Provider: María Elena Freire, Status: Pen, Time: 10:00 AM [facility], Provider: María Elena Freire, Status: Pen, Time: 10:00 AM [facility] 250 DO Work Phone: Start: 03-28-2022 EVENT EZEKIEL, Provider : HERIBERTO SINGH [employer] 1,[id number], Status: Pen, Time: 8:00 AM EVENT EZEKIEL, Provider: HERIBERTO SINGH [employer] 1,[id number], Status: Pen, Time: 8:00 AM [facility] 250 DO Work Phone: Start: 01-25-2022 End: 03-27-2022 Chronic hepatitis differentiation between hepatitis B and C virus panel - Serum or Plasma [facility] Work Phone: Comment on above: Expected: 01/25/2022 , Expires: 03/27/2022 Start: 01-25-2022 End: 03-27-2022 Complement C1 esterase inhibitor [Mass/volume] in Serum or Plasma [facility] Work Phone: Comment on above: Expected: 01/25/2022 , Expires: 03/27/2022 Start: 01-25-2022 End: 03-27-2022 Complement C2 [Mass/volume] in Serum or Plasma [facility] Work Phone: Comment on above: Expected: 01/25/2022 , Expires: 03/27/2022 Start: 09-24-2021 DEPRESSION ASSESSMENT DEPRESSION ASS ESSMENT [facility] Start: 06-16-2021 COVID-19 VACCINE (3 - Booster for Pfizer series) COVID-19 VACCINE (3 - Booster for Pfizer series) [facility] Start: 03-11-2021 COVID-19 VACCINE (3 - Booster for Pfizer series) COVID-19 VACCINE (3 - Booster for Pfizer series) [facility] Start: 02-11-2021 COVID-19 VACCINE (3 - Pfizer risk series) COVID-19 VACCINE (3 - Pfizer risk series) [facility] Start: 2020 SHINGRIX VACCINE (1 of 2) VANG GRIX VACCINE (1 of 2) [facility] Start: 2020 Urine microalbumin profile [facility] Start: 12-03-2019 CHLAMYDIA SCREENING (18-24) CHLAMYDIA SCREENING (18-24) [facility] Start: 12-03-2019 GC (GONORRHEA) SCREE NINI (18-24) GC (GONORRHEA) SCREENING (18-24) [facility] Start: 12-03-2019 HEPATITIS C SCREENING HEPATITIS C SC REENING [facility] Start: 12-03-2019 HIV SCREENING HIV SCREENING [facility] Start: 12-03-2019 HIV screening HIV Screening [facility] Start: 12-03-2019 Screening for Chlamy taylor trachomatis Chlamydia Screening () [facility] Start: 2017 Meningococcal B Vacc ine: Consider Based On Risk (1 of 2 - Patient Seeks Protection) Meningococcal B Vaccine: Consider Based On Risk (1 of 2 - Patient Seeks Protection) [facility] Start: 12-03-2015 PEDS TO ADULT TRANSI TION ANNUAL ASSESSMENT PEDS TO ADULT TRANSITION ANNUAL ASSESSMENT [facility] Start: 2013 Adult depression screening assessment DEPRESSION SCREENING [facility] Start: 2013 PEDS TO ADULT TRANSI TION INITIAL DISCUSSION PEDS TO ADULT TRANSITION INITIAL DISCUSSION [facility] Start: 2012 HPV VACCINE (1 - 2-d ose series) HPV VACCINE (1 - 2-dose series) [facility] Start: 12-03-2011 MENINGOCOCCAL 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 (1 of 2 - Risk Bexsero 2-dose series) MENINGOCOCCAL B: Consider based on risk (1 of 2 - Risk Bexsero 2-dose series) [facility] Start: 2010 HPV Vaccine (1 - 2-d ose series) HPV Vaccine (1 - 2-dose series) [facility] Start: 2010 HPV VACCINES (1 - 2- dose series) HPV VACCINES (1 - 2-dose series) [facility] Start: 2008 DTaP/Tdap/Td VACCINE S (1 - Tdap) DTaP/Tdap/Td VACCINES (1 - Tdap) [facility] Start: 12-03-2007 PNEUMOCOCCAL (1 - PCV) PNEUMOCOCCAL (1 - PCV) [facility] Start: 2002 MMR VACCINES (1 of 1 - Standard series) MMR VACCINES (1 of 1 - Standard series) [facility] Start: 2002 VARICELLA VACCINES ( 1 of 2 - 2-dose childhood series) VARICELLA VACCINES (1 of 2 - 2-dose childhood series) [facility] Start: 06-04-2002 COVID-19 Vaccine (#1) COVID-19 Vacci ne (#1) [facility] Start: 2001 HEPATITIS B (1 of 3 - 3-dose series) HEPATITIS B (1 of 3 - 3-dose series) [facility] Start: 2001 Hepatitis B Vaccine (1 of 3 - 3-dose series) Hepatitis B Vaccine (1 of 3 - 3-dose series) [facility] Start: 2001 HEPATITIS B VACCINES (1 of 3 - 3-dose series) HEPATITIS B VACCINES (1 of 3 - 3-dose series) [facility] Patient Education [facility] Work Phone: Patient referral [facility] Work Phone: End: 08-04-2024 XR KNEE GENERAL 4V AP BOTH/PA BOTH/LAT/MERC RIGHT XR KNEE GENERAL 4V AP BOTH/PA BOTH/LAT/MERC RIGHT Radiology Routine Right knee pain, unspecified chronicity 1 Occurrences starting 07/06/2023 until 08/04/2024 [facility] Work Phone: Comment on above: 1 Occurrences starti ng 07/06/2023 until 08/04/2024 [facility] Immunizations Immunization Date Immunization Notes [facility]2023 influenza virus vaccine, unspecified formulation Celeste Watson [facility] Neena 01-14-2021 Pfizer-[employer] COVID-19 Vacc 30 MCG/0.3ML Intramuscular Suspension Ibis [employer]eria Work Phone: [facility] Comment on above: Result Comment: 2023: TPVAL 12-24-2020 Pfizer-[employer] COVID-19 Vacc 30 MCG/0.3ML Intramuscular Suspension [employer] Work Phone: [facility] Comment on above: Result Comment: 2023: TPVAL 12-11-2017 meningococcal polysaccharide (groups A, C, Y and W-135) diphtheria toxoid conjugate vaccine (MCV4P) Christina Portia Other [facility] [employer] Other 12-11-2017 meningococcal ACWY vaccine, unspecified formulation Celeste Watson [facility] 11-06-2014 human papilloma viru s vaccine, quadrivalent Christina Portia Other [facility] [employer] Other 11-06-2014 HPV, unspecified formulation [employer] Work Phone: [facility] 250 DO Work Phone: 06-26-2014 HPV, unspecified formulation Celeste Watson [facility] 06-26-2014 human papilloma viru s vaccine, quadrivalent Christina Portia Other [employer] Other 04-20-2014 human papilloma viru s vaccine, quadrivalent Christina Portia Other [facility] [employer] Other 04-20-2014 meningococcal polysaccharide (groups A, C, Y and W-135) diphtheria toxoid conjugate vaccine (MCV4P) Christina Portia Other [facility] [employer] Other 04-20-2014 tetanus toxoid, redu richar diphtheria toxoid, and acellular pertussis vaccine, adsorbed Christina Portia Other [facility] 04-20-2014 HPV, unspecified formulation Celeste RinBracketr [facility] 04-20-2014 meningococcal ACWY vaccine, unspecified formulation Celeste RinBracketr [facility] 12-27-2006 diphtheria, tetanus toxoids and acellular pertussis vaccine, unspecified formulation Ibis A Blas Work Phone: [facility] [employer] DO Work Phone: 12-27-2006 DTaP, unspecified formulation Celeste RinBracketr [facility] 12-27-2006 measles, mumps, rubella, and varicella virus vaccine Ibis A Blas Work Phone: [facility] 12-27-2006 poliovirus vaccine, inactivated Ibis A Blas Work Phone: [facility] [employer] DO Work Phone: 12-27-2006 poliovirus vaccine, unspecified formulation [employer] [facility] 02-06-2003 diphtheria, tetanus toxoids and acellular pertussis vaccine, unspecified formulation Ibis A Blas Work Phone: [facility] [employer] DO Work Phone: 02-06-2003 DTaP, unspecified formulation Celeste RinBracketr [facility] 02-06-2003 haemophilus influenz ae type b vaccine, conjugate unspecified formulation Ibis A Blas Work Phone: [facility] [employer] DO Work Phone: 02-06-2003 Hib, unspecified formulation Celeste RinBracketr [facility] 02-06-2003 measles, mumps and rubella virus vaccine Ibis A Blas Work Phone: [facility] 02-06-2003 varicella virus vaccine Susan ica A Blas Work Phone: [facility] 07-02-2002 diphtheria, tetanus toxoids and acellular pertussis vaccine, unspecified formulation Ibis A Blas Work Phone: [facility] 250 DO Work Phone: 07-02-2002 DTaP, unspecified formulation [employer] [facility] 07-02-2002 haemophilus influenz ae type b vaccine, conjugate unspecified formulation Ibis A Blas Work Phone: [place] [id number] DO Work Phone: 07-02-2002 Hib, unspecified formulation [employer] [facility] 07-02-2002 pneumococcal conjuga te vaccine, 7 valent Ibis A Blas Work Phone: [place] [address] DO Work Phone: 07-02-2002 poliovirus vaccine, inactivated Ibis A Blas Work Phone: [place] [address] DO Work Phone: 07-02-2002 poliovirus vaccine, unspecified formulation [employer] [facility] 05-19-2002 diphtheria, tetanus toxoids and acellular pertussis vaccine, unspecified formulation Ibis A Blas Work Phone: [facility] 250 DO Work Phone: 05-19-2002 DTaP, unspecified formulation [employer] [facility] 05-19-2002 haemophilus influenz ae type b conjugate and Hepatitis B vaccine Ibis A Blas Work Phone: [place] [address] DO Work Phone: 05-19-2002 pneumococcal conjuga te vaccine, 7 valent Ibis A Blas Work Phone: [place] [address] DO Work Phone: 05-19-2002 poliovirus vaccine, inactivated Ibis A Blas Work Phone: [place] [address] DO Work Phone: 05-19-2002 poliovirus vaccine, unspecified formulation Celeste RinBracketr [facility] 03-05-2002 diphtheria, tetanus toxoids and acellular pertussis vaccine, unspecified formulation [employer]bis A Bl[employer] Work Phone: [place] [address] DO Work Phone: 03-05-2002 DTaP, unspecified formulation Celeste RinBracketr [facility] 03-05-2002 haemophilus influenz ae type b conjugate and Hepatitis B vaccine [employer]bis [employer] Bl[employer] Work Phone: [place] [address] DO Work Phone: 03-05-2002 poliovirus vaccine, inactivated [employer]bis A Blas Work Phone: [place] [address] DO Work Phone: 03-05-2002 poliovirus vaccine, unspecified formulation Celeste RinBracketr [facility] 2001 hepatitis B vaccine, pediatric or pediatric/adolescent dosage [employer] Work Phone: [facility] Payers Date Payer Category Payer Private Health Insurance [id number] 2023 Self-pay [id number] 2021 Private Health Insurance [id number] 2021 Private Health Insurance [id number] 2020 Private Health Insurance [facility] CHO[facility] PL[facility] [id number] 2020-Present [phone] [address] [place] [address] HMO [id number]. [id number] 2020 Unknown [id number] 2013 Medicaid [employer] [id number] 2013-Present [phone] [address] [place] [address] Medicaid [id number]. [id number] 2013 Medicaid [id number]. [id number] 2007 Unknown [id number] 2.16.840.1.582024.19 2001 Unknown [id number] 2.16.840.1.451088.3.579.2. 1068 2001 Unknown [id number] 2.16.840.1.867038.3.579.2. 594 2001 Unknown [id number] 2.16.840.1.859764.3.579.2. 594 2001 Unknown [id number] 2.16.840.1.750871.3.579.2. 356 2001 Unknown [id number] 2.16.840.1.242225.3.579.2. 356 2001 Unknown [id number] 2.16.840.1.327223.3.579.2. 356 2001 Unknown [id number] 2.16.840.1.144713.3.579.2. 356 2001 Unknown [id number] 2.16.840.1.518268.3.579.2. 356 2001 Unknown [id number] 2.16.840.1.864313.3.579.2. 356 2001 Unknown [id number] 2.16.840.1.894504.3.579.2. 356 2001 Unknown [id number] 2.16.840.1.676119.3.579.2. 356 2001 Unknown [id number] 2.16.840.1.161212.3.579.2. 727 2001 Unknown [id number] 2.16.840.1.495552.3.579.2. 727 2001 Unknown [id number] 2.16.840.1.302516.3.579.2. 727 2001 Unknown [id number] 2.16.840.1.852066.3.579.2. 727 2001 Unknown [id number] 2.16.840.1.894888.3.579.2. 727 2001 Unknown [id number] 2.16.840.1.960987.3.579.2. 1259 2001 Unknown [id number] 2.16.840.1.626734.3.579.2. 1259 2001 Unknown [id number] 2.16.840.1.911575.3.579.2. 1259 2001 Unknown [id number] 2.16.840.1.276442.3.579.2. 1259 2001 Unknown [id number] 2.16.840.1.021052.3.579.2. 1259 2001 Unknown [id number] 2.16.840.1.155287.3.579.2. 1259 Unknown Unknown [employer]/BS [id number] Unknown [id number] 2.16.840.1.407999.3.579.2. 531 Unknown [id number] 2.16.840.1.171373.3.579.2. 531 Unknown [id number] 2.16.840.1.506460.3.579.2. 531 Unknown [id number] 2.16.840.1.689264.3.579.2. 531 Social History Date Type Detail Facility Tobacco smoking status INIS Tobacco smoking consumption unknown [facility] Work Phone: Start: 2001 Sex Assigned At Not on file C [facility] Start: 01-15-2022 End: 07-31-2022 Exposure to SARS-CoV-2 (event) Not sure [facility] Start: 12-28-2022 End: 11-12-2023 Sex Assigned At [facility] Start: 12-28-2022 End: 11-12-2023 No alcohol use No alcohol use [facility] Comment on above: very rarely soda; Start: 09-20-2019 End: 12-11-2023 Tobacco smoking status INIS Never smoked tobacco (finding) [facility] Start: 2001 Sex Assigned At Female F [facility] Start: 07-31-2022 Tobacco use and exposure Smokeless tobacco non-user [facility] Adult Depression Screening Assessment 0 [facility] Start: 09-29-2023 Gender identity Identifies as female gender (finding) [facility] NEGATED: Highlighted rowStart: RIKF History of tobacco use Passive smoker [facility] Clinical Notes 09-24-2007 to 03-20-2024 Jyoti Dickey PA-C - 03/20/2024 3:15 PM Jyoti Hutchins PA-C - 11/30/2023 10:00 AM Gauri Schmidt - 11/12/2023 10:18 AM Jann Boggs - Arin Tinajero RN - 07/20/2023 2:00 PM EDT Note Date & Type Note Facility 03-20-2024 History of Present illness Narrative Images from the original note were not included. [facility] Follow-Up VIRTUAL VISIT This is a virtual visit using [id number] Video Visit. It required patient-provider interaction for the medical decision making as documented below. I have communicated my name and active licensure. The patient's identity and physical location were verified at the time of this visit. 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 Madyson Mai is a 23 year old female here today for a follow up regarding POTS. Last Visit 11/30/2023: Madyson Mai is a 22 year old here today for initial evaluation. Madyson Mai has a unremarkable past medical history. Patient presents today for evaluation of POTS. Was evaluated by general neurology for 4 separate episodes of transient loss of consciousness. During 3 episodes patient was standing walking to the bathroom when she began to feel lightheaded and experienced tunnel vision. LOC occurred shortly after this. LOC typically short-lived usually less than 1 minute. No known convulsions or mouth maceration. Patient does admit to loss of bladder without bowel on 2 occasions. When patient is able to regain consciousness, she noted fatigue and/or confusion for around 20 to 30 minutes following event. Patient was never evaluated in ED for this. 1 episode of LOC occurred while patient was getting blood drawn. She was sitting getting blood drawn when she began to feel lightheaded and experienced tunnel vision. LOC occurred shortly after and lasted a few seconds. No convulsions, no mouth maceration, no loss of bowel or bladder. Ongoing symptoms when not experiencing LOC include nausea, dizziness, lightheadedness, fatigue, tremor, chest pain, heart rate and blood pressure fluctuations, and headaches. General neurology ordered a tilt table test which was positive for POTS. Also ordered an EEG which was unremarkable. Prior workup includes echo and Holter monitor which were unremarkable. Orthostatic vital signs obtained at today's visit show an increase in heart rate approximately 30 beats with standing. Neurological examination unremarkable. Discussed in depth diagnosis of POTS. Discussed conservative measures including increasing fluid, increasing sodium, wearing compression stockings, and increasing exercise. Patient was trialed on fludrocortisone, midodrine, and droxidopa previously by cardiology and failed. For now recommend none medication management. Also sent patient POTS empowerment document and will add patient to POTS SMA. Will follow-up in 3 months or sooner with new or worsening symptoms. Patient is aware and agrees to plan. Patient agrees to notify for new or worsening symptoms. Discussed red flag/signs/symptoms and when to proceed to the ER. Today March 19, 2024 : Since last appointment she is feeling that symptoms have improved. Does occasionally experience chest pain but notes if she is able to relax this can help with some symptoms. Feeling that heat can exacerbate some symptoms as well. Recently diagnosed with PCOS which was taking up some of her time. Trying to conceive. Reviewed POTS and . Current management of orthostatic condition Diet: regular Exercise: limited Water: 32 oz per day Salt: no Stockings: no Mental health: doing ok Prior Medications for orthostatic condition Fludrocortisone Midodrine Droxidopa Medications Reviewed CLOMID 50 mg tablet 100 mg. albuterol HFA (PROVENTIL HFA, VENTOLIN HFA) 90 mcg/actuation inhaler Inhale 2 Puffs as instructed every 6 hours as needed. Allergies Reviewed Prior work up: Stress echocardiogram April 2022 normal good exercise tolerance appropriate hemodynamic response to exercise LVEF 55% no mitral regurgitation or LVOT obstruction at peak exercise hyperdynamic LV with ejection fraction of 85% patient exercised for 12 minutes and achieved 98% of her age-predicted maximum heart rate. Test was terminated due to fatigue. Echocardiogram April 2022 normal chamber dimensions normal LV function RV systolic pressure 70 mmHg LV wall thickness and chamber dimensions normal left atrial diameter 3.5 cm 30-day event monitor March 2022-39: patient triggered episodes all corresponded to normal sinus rhythm in the 70s and 80s and occasionally sinus tachycardia. No bradycardia dysrhythmias. Palpitations sometimes corresponded to sinus tachycardia overall the symptoms are very frequent with paucity of objective findings on the monitor Labs CBC CMP ARMANI RA ESR CRP Unremarkable Tilt Table testing 11/12/2023: Heart rate response to deep breathing is normal via the mean heart rate range (MHRR) and the E:I ratio. Heart rate response to the Valsalva maneuver, as assessed by the Valsalva ratio, is normal. Blood pressure responses to phase II and phase IV of the Valsalva maneuver are normal. During 10 minutes of 60 degree head-up tilt, heart rate increased by a maximum increment of 56 bpm (normal < 30 bpm) at the 1st minute of tilt and was abnormally increased via peak heart rate range at the 2-10th minutes. The blood pressure responses to tilt were normal. The patient complained of lightheadedness during the tilt but these symptoms subsided during the remainder of the tilt. This is an abnormal cardiovascular autonomic test panel due to prominent tachycardia during the tilt test. These findings are nonspecific but in the proper clinical context are consistent with postural orthostatic tachycardia syndrome (POTS) as well as anxiety and other hyperadrenergic states. There is no evidence of a significant cardiovagal or cardiovascular adrenergic abnormality on the autonomic cardiovascular reflex tests. In addition, there is no evidence of orthostatic hypotension. EEG 11/12/2023: This EEG is within normal limits. No epileptiform discharges or EEG seizures were seen during this recording. ECHO 11/12/2023: CONCLUSIONS: - Exam indication: Initial evaluation valvular heart disease - The left ventricle is normal in size. Left ventricular systolic function is normal. EF = 59 5% (2D biplane) - The right ventricle is normal in size. Right ventricular systolic function is normal. - There are no significant valvular abnormalities. - The patient has not had a prior CC echocardiographic exam for comparison. PAST MEDICAL HISTORY: There is no problem list on file for this patient. No past surgical history on file. Social History Tobacco Use Smoking status: Never Passive exposure: Never Smokeless tobacco: Never family history is not on file. EXAM: Exam is observational at best. General Appearance: well appearing, in no acute distress Mental status evaluation during the interview and examination showed normal level of consciousness, orientation, language, memory, praxis, and higher intellectual function Affect: Normal Speech: normal Cranial Nerves: III, IV, -EOMI: full. VII-face is symmetric without evidence of weakness. VIII-hearing intact. XII-tongue protrudes midline with normal movements. IMPRESSION/PLAN: (G90.A) POTS (postural orthostatic tachycardia syndrome) (primary encounter diagnosis) Madyson Mai is a 23 year old female here today for follow up. POTS Conservative Measures Increased water intake (2-2.5 liters of water daily) Increased salt intake (3-5 grams daily) Compression stockings Cardiac Rehab/ increased Exercise Shared medical appointment with Dr. Cheema Medication Changes -- none today I spent a total of 15 minutes on the date of the service which included preparing to see the patient, [id number] patient care, completing clinical documentation, obtaining and/or reviewing separately obtained history, performing a medically appropriate examination, counseling and educating the patient/family/caregiver, and ordering medications, tests, or procedures. Jyoti Dickey PA-C Neuromuscular Medicine [address] [place] [address]. [id number] Appointment: [phone] During our virtual visit encounter we discussed my concerns neurologically in terms of diagnosis, impact on health and activities of living, and addressed questions. I tried to reassure the patient and also address questions. I explained to the patient to call if any questions, to review results, and I want to see them return for neurological follow up as mychart as next steps of communication is agreed upon Patient verbalizes understanding and I have addressed concerns and questions at this visit Patient has my contacts, educational material provided, and my chart sign up. After visit summary discussed. 1. This office note has been dictated and may contain minor typographic errors that escaped review 2. The nursing staff and medical assistants are a major part of YOUR TREATMENT TEAM and will be handling your phone calls and inquiries, if any. Unless explicitly told otherwise at the time of your office visit, your study results and ensuing treatment plans will be discussed during your follow-up appointment. If you do not have a follow-up appointment and wish to discuss any issues directly with me, please feel free to obtain one. 3. It is my practice to not fill disability or any other insurance-related forms/documention. All of the office notes, study results, and other pertinent documentation generated as part of your evaluation will be available to you and to your Primary Care Physician (PCP). Use of this material to complete such forms will be at the discretion of your PCP/referring physician 03/13/2024 PROMIS Global Health Physical Health Summary Physical health: Fair Everyday physical activity, ability: Mostly Fatigue: Mild Pain level: 5 General health: Fair Social activities/roles, ability: Good Physical Health T-Score 42.3 (Good) Physical Health Percentile 22 PROMIS Global Health Mental Health Summary Quality of life: Good Mental health (mood,thinking): Good Social satisfaction: Good Emotional problems (anxious,depressed): Never Mental Health T-Score 48.3 (Very Good) Mental Health Percentile 43 PHQ-9 Score: 3(Minimal Depression) PHQ-9 Self-Harm: Not at all DANIELE-7 Score: 6(Mild Anxiety) Percentiles provide an indication of how a patient's score ranks in relation to the [place] general population. > 31st percentile is within normal limits or better *< 31st percentile is at least SD worse than population, which may be clinically relevant < 16th percentile is at least 1 SD worse than population and warrants attention Answers submitted by the patient for this visit: Compass 31 (Submitted on 03/13/2024) In the past year, have you ever felt faint, dizzy, goofy , or had difficulty thinking soon after standing up from a sitting or lying position?: Yes In the past year, have you ever noticed color changes in your skin, such as red, white, or purple?: Yes In the past 5 years, what changes, if any, have occurred in your general body sweating?: I sweat much more than I used to Do your eyes feel excessively dry? : Yes Does your mouth feel excessively dry? : No For the symptom of dry eyes or dry mouth that you have had for the longest period of time, is this symptom:: Staying about the same In the past year, have you noticed any changes in how quickly you get full when eating a meal?: I get full a lot more quickly now than I used to In the past year, have you felt excessively full or persistently full (bloated feeling) after a meal?: Sometimes In the past year, have you vomited after a meal? : Never In the past year, have you had a cramping or colicky abdominal pain?: Sometimes In the past year, have you had any bouts of diarrhea?: No In the past year, have you been constipated? : Yes In the past year, have you ever lost control of your bladder function?: Never In the past year, have you had difficulty passing urine?: Never In the past year, have you had trouble completely emptying your bladder?: Never In the past year, without sunglasses or tinted glasses, has bright light bothered your eyes?: Occasionally In the past year, have you had trouble focusing your eyes?: Frequently Is this most troublesome symptom with your eyes (i.e. sensitivity to bright light or trouble focusing) getting:: Staying about the same (Submitted on 03/13/2024) When standing up, how frequently do you get these feelings or symptoms?: Occasionally How would you rate the severity of these feelings or symptoms?: Moderate In the past year, have these feelings or symptoms that you have experienced:: Stayed about the same (Submitted on 03/13/2024) What parts of your body are affected by these color changes? : Feet Are these changes in your skin color:: Staying about the same (Submitted on 03/13/2024) How frequently are you constipated? : Occasionally How severe are these episodes of constipation? : Mild Is your constipation getting:: Staying the same (Submitted on 03/13/2024) How severe is this sensitivity to bright light?: Mild (Submitted on 03/13/2024) How severe is this focusing problem? : Mild documented in this encounter [facility] 03-20-2024 Note HNO ID: [id number] Author: JYOTI DICKEY PA-C Service: ? Author Type: Physician Price Checker Type: Progress Notes Filed: 03/20/2024 15:17 Note Text: [facility] Follow-Up VIRTUAL VISIT This is a virtual visit using [id number] Video Visit. It required patient-provider interaction for the medical decision making as documented below. I have communicated my name and active licensure. The patient's identity and physical location were verified at the time of this visit. 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 Madyson Mai is a 23 year old female here today for a follow up regarding POTS. Last Visit 11/30/2023: Madyson Mai is a 22 year old here today for initial evaluation. Madyson Mai has a unremarkable past medical history. Patient presents today for evaluation of POTS. Was evaluated by general neurology for 4 separate episodes of transient loss of consciousness. During 3 episodes patient was standing walking to the bathroom when she began to feel lightheaded and experienced tunnel vision. LOC occurred shortly after this. LOC typically short-lived usually less than 1 minute. No known convulsions or mouth maceration. Patient does admit to loss of bladder without bowel on 2 occasions. When patient is able to regain consciousness, she noted fatigue and/or confusion for around 20 to 30 minutes following event. Patient was never evaluated in ED for this. 1 episode of LOC occurred while patient was getting blood drawn. She was sitting getting blood drawn when she began to feel lightheaded and experienced tunnel vision. LOC occurred shortly after and lasted a few seconds. No convulsions, no mouth maceration, no loss of bowel or bladder. Ongoing symptoms when not experiencing LOC include nausea, dizziness, lightheadedness, fatigue, tremor, chest pain, heart rate and blood pressure fluctuations, and headaches. General neurology ordered a tilt table test which was positive for POTS. Also ordered an EEG which was unremarkable. Prior workup includes echo and Holter monitor which were unremarkable. Orthostatic vital signs obtained at today's visit show an increase in heart rate approximately 30 beats with standing. Neurological examination unremarkable. Discussed in depth diagnosis of POTS. Discussed conservative measures including increasing fluid, increasing sodium, wearing compression stockings, and increasing exercise. Patient was trialed on fludrocortisone, midodrine, and droxidopa previously by cardiology and failed. For now recommend none medication management. Also sent patient POTS empowerment document and will add patient to POTS SMA. Will follow-up in 3 months or sooner with new or worsening symptoms. Patient is aware and agrees to plan. Patient agrees to notify for new or worsening symptoms. Discussed red flag/signs/symptoms and when to proceed to the ER. Today March 19, 2024 : Since last appointment she is feeling that symptoms have improved. Does occasionally experience chest pain but notes if she is able to relax this can help with some symptoms. Feeling that heat can exacerbate some symptoms as well. Recently diagnosed with PCOS which was taking up some of her time. Trying to conceive. Reviewed POTS and . Current management of orthostatic condition Diet: regular Exercise: limited Water: 32 oz per day Salt: no Stockings: no Mental health: doing ok Prior Medications for orthostatic condition Fludrocortisone Midodrine Droxidopa Medications Reviewed CLOMID 50 mg tablet 100 mg. albuterol HFA (PROVENTIL HFA, VENTOLIN HFA) 90 mcg/actuation inhaler Inhale 2 Puffs as instructed every 6 hours as needed. Allergies Reviewed Prior work up: Stress echocardiogram April 2022 normal good exercise tolerance appropriate hemodynamic response to exercise LVEF 55% no mitral regurgitation or LVOT obstruction at peak exercise hyperdynamic LV with ejection fraction of 85% patient exercised for 12 minutes and achieved 98% of her age-predicted maximum heart rate. Test was terminated due to fatigue. Echocardiogram April 2022 normal chamber dimensions normal LV function RV systolic pressure 70 mmHg LV wall thickness and chamber dimensions normal left atrial diameter 3.5 cm 30-day event monitor March 2022-: patient triggered episodes all corresponded to normal sinus rhythm in the 70s and 80s and occasionally sinus tachycardia. No bradycardia dysrhythmias. Palpitations sometimes corresponded to sinus tachycardia overall the symptoms are very frequent with paucity of objective findings on the monitor Labs CBC CMP ARMANI RA ESR CRP Unremarkable Tilt Table testing 11/12/2023: Heart rate response to deep breathing is normal via the mean hea (more content not included)... [facility] 11-30-2023 History of Present illness Narrative Images from the original note were not included. [facility] New Patient Evaluation Madyson Mai is a 22 year old right handed female. Patient presents with: New Patient Consult Madyson Mai is referred in consultation by Aurora Santiago PA-C for POTS. Final recommendations will be communicated to the requesting physician by way of a letter. PMH: - obesity Neurology, Aurora Santiago PA-C 10/10/2023: IMPRESSION/PLAN: (R40.4) Transient alteration of awareness (primary encounter diagnosis) (R55) Syncope, unspecified syncope type Madyson Schmid is a 22 year old female with history of Orthostatic intolerance, right knee patellofemoral pain, obesity. Chari presents to the office today for concerns of episodes of syncope with loss of awareness/consciousness, feeling disoriented, 2 episodes associated with bladder incontinence. She has reported total 4 episodes of syncope since 2020. Her last episode of syncope was April 2023 She does not have any positional dizziness, presyncope, or syncope associated with changing positions. She does not have any sensation of passing out if she is standing for prolonged period Of time. She reports shortness of breath, tightness in chest, chest pain. She has been seen by various providers locally in her area and was worked up for POTS concerns and was treated with various medications including beta-quentin/atenolol no benefit, Florinef caused GI side effects, midodrine caused GI side effects, droxidopa no benefits GI side effects and had no benefits Her neurological exam is unremarkable/nonfocal. Her orthostatics in office are negative for hypotension or tachycardia We will get tilt table test, Holter monitor for 2 weeks, echocardiogram, EEG prolonged and review results after testing. She will schedule a visit with neuromuscular for management of syncope, POTS or orthostatic hypotension. (Since she has failed various medications they can help better with medical decision making). Today: Patient presents today for evaluation of POTS. 2020 had knee surgery and then passed out when she was using crutches. She was standing when she began to experience lightheadednes, dizziness, and tunnel vision. Experienced LOC and patient believes she was out for a few seconds. Witnessed by gigi who reports no convulsions, lost control of bladder, no mouth maceration. Did not go to the ER, reports that she felt hot and cold after and mildly confused. Within around 20 minutes patient was able to recover. September 2021 woke up in the middle of the night. Began to feel confused and experienced LOC while walking up the stairs. [place] prodromal symptoms including lightheadedness and tunnel vision. LOC unwitnessed, loss of bladder, no mouth maceration. Regained consciousness a few moments later where she was helped up and she went back to bed. March 2022. On vacation and she stood up in the middle of the night to use the bathroom. After washing hands experienced tunnel vision, dizziness, and lightheadedness. Experienced LOC which was heard by family who found her in on the bathroom floor. No loss of bowel or bladder, no mouth maceration. Following LOC patient was helped to bed and felt fatigued for around 30 minutes following event. April 2023 was at a doctors office getting lab work done. Had blood drawn, shortly after patient began to experience tunnel vision, lightheadedness, and dizziness and experienced LOC. Loc occurred for a few seconds. No convulsions, no loss of bowel or bladder, no mouth maceration. Confusion following event for around 20 minutes - was able to drive home and return to baseline. When not experiencing an episode - nausea - dizziness - lightheadedness - fatigue - tremor - chest pain - HR and BP fluctuations - headaches Was evaluated by cardiology in the past who completed holter monitor, echo, EKG and tilt - workup normal. Autonomic Screening Do you become dizzy or lightheaded with standing? Occasionally Do you notice your heart racing (tachycardia) with postural change? + Do you have syncope? + In the past month, did you have any falls? - How long can you stand (in minutes) before becoming symptomatic? Anytime Are symptoms worse after consuming a meal? + Are symptoms alleviated by sitting/laying down? + Autonomic check list: YES (Y) or NO (N) Dry mouth: - Dry eyes: - Change in sweat: + more Constipation: - Abdominal Bloating with shortly after eating: - Fluctuation of diarrhea and constipation: - Urination: + Change in taste: - Challenge swallowing foods: - Skin changes of blue or redness to distal limbs: + feet go red Fainting /near syncope/syncope: + syncope Dizziness: + Light headiness: + Chest pain: + Challenge in breathing: - Tachycardia: + Temperature Regulation: - Hx of head/neck trauma? - Hx of severe viral illness? - Hx of autoimmune disease? - History of emotional or physical abuse? + resolve Prior work up: Stress echocardiogram April 2022 normal good exercise tolerance appropriate hemodynamic response to exercise LVEF 55% no mitral regurgitation or LVOT obstruction at peak exercise hyperdynamic LV with ejection fraction of 85% patient exercised for 12 minutes and achieved 98% of her age-predicted maximum heart rate. Test was terminated due to fatigue. Echocardiogram April 2022 normal chamber dimensions normal LV function RV systolic pressure 70 mmHg LV wall thickness and chamber dimensions normal left atrial diameter 3.5 cm 30-day event monitor March 2022-39: patient triggered episodes all corresponded to normal sinus rhythm in the 70s and 80s and occasionally sinus tachycardia. No bradycardia dysrhythmias. Palpitations sometimes corresponded to sinus tachycardia overall the symptoms are very frequent with paucity of objective findings on the monitor Labs CBC CMP ARMANI RA ESR CRP Unremarkable Tilt Table testing 11/12/2023: Heart rate response to deep breathing is normal via the mean heart rate range (MHRR) and the E:I ratio. Heart rate response to the Valsalva maneuver, as assessed by the Valsalva ratio, is normal. Blood pressure responses to phase II and phase IV of the Valsalva maneuver are normal. During 10 minutes of 60 degree head-up tilt, heart rate increased by a maximum increment of 56 bpm (normal < 30 bpm) at the 1st minute of tilt and was abnormally increased via peak heart rate range at the 2-10th minutes. The blood pressure responses to tilt were normal. The patient complained of lightheadedness during the tilt but these symptoms subsided during the remainder of the tilt. This is an abnormal cardiovascular autonomic test panel due to prominent tachycardia during the tilt test. These findings are nonspecific but in the proper clinical context are consistent with postural orthostatic tachycardia syndrome (POTS) as well as anxiety and other hyperadrenergic states. There is no evidence of a significant cardiovagal or cardiovascular adrenergic abnormality on the autonomic cardiovascular reflex tests. In addition, there is no evidence of orthostatic hypotension. EEG 11/12/2023: This EEG is within normal limits. No epileptiform discharges or EEG seizures were seen during this recording. ECHO 11/12/2023: CONCLUSIONS: - Exam indication: Initial evaluation valvular heart disease - The left ventricle is normal in size. Left ventricular systolic function is normal. EF = 59 5% (2D biplane) - The right ventricle is normal in size. Right ventricular systolic function is normal. - There are no significant valvular abnormalities. - The patient has not had a prior CC echocardiographic exam for comparison. Current management of orthostatic condition Diet: 2-3 meals per day Exercise: no Water: 32 oz Salt: electrolytes Stockings: no Medications Reviewed albuterol HFA (PROVENTIL HFA, VENTOLIN HFA) 90 mcg/actuation inhaler Inhale 2 Puffs as instructed every 6 hours as needed. ALLERGIES Allergen Reactions Narcotics [Opioids * Other: See Comments Fainting/Urinary Incontinence Prednisone Other: See Comments Fainting/Urinary incontinence PAST MEDICAL HISTORY: No past medical history on file. No past surgical history on file. Social History Tobacco Use Smoking status: Never Passive exposure: Never Smokeless tobacco: Never family history is not on file. General Examination: BP 118/79 (BP Site: Right Arm, BP Position: Sitting, BP Cuff Size: Regular Adult) Pulse 84 Ht 165.1 cm (5' 5 ) Wt 93 kg (205 lb) SpO2 96% BMI 34.11 kg/m 11/30/23 0933 11/30/23 1037 11/30/23 1038 11/30/23 1039 BP: 118/79 Orthostatic BP: 113/74 114/66 114/68 BP Site: Right Arm BP Position: Sitting Supine Standing Standing BP Cuff Size: Regular Adult Pulse: 84 Orthostatic Pulse: 68 95 86 SpO2: 96% Weight: 93 kg (205 lb) Height: 165.1 cm (5' 5 ) Neurological Examination: Cognition The patient is alert and oriented times four Lucid and organized in conversation Able to provide detailed medical hx Speech Speech is Normal in fluency, volume, and clarity; no dysarthria Content and syntax are coherent Comprehension: Able to follow several step commands Cranial Nerves PERRLA No ptosis Visual rojas are full to confrontation Extraocular movements are intact; No nystagmus Facial motor exam is strong and symmetric Equal sensation of trigeminal nerve - V1,V2, and V3 Soft palate elevation is symmetric, tongue is in midline, no tongue fasciculation. Neck range of motion is full Trapezius Strength is symmetric, graded 5/5 Tone and Bulk Tone and bulk is normal and preserved bilaterally of arms Tone and bulk is normal and preserved bilaterally of legs No apparent muscle atrophy No pes cavus or hammer toes Strength Shoulder Abduction 5/5 5/5 Elbow Flexion 5/5 5/5 Elbow Extension 5/5 5/5 Wrist Flexion 5/5 5/5 Wrist Extension 5/5 5/5 Finger Extension 5/5 5/5 Finger Flexion 5/5 5/5 Finger Abduction 5/5 5/5 Hip Flexion 5/5 5/5 Hip Adduction 5/5 5/5 Hip Abduction 5/5 5/5 Knee Flexion 5/5 5/5 Knee Extension 5/5 5/5 Ankle Dorsiflexion 5/5 5/5 Ankle Plantarflexion 5/5 5/5 Movement/Coordination Finger-to- nose-finger and [id number] intact bilaterally. No evidence of ataxia arms. No limb dysmetria of arms and legs. Rapid alternating movements of pronation and supination, finger and hand tapping intact. No rigidity, cog wheeling, or bradykinesia. No tremors No extrapyramidal findings or dystonia Sensation Intact to light touch, pinprick, and temperature sensation at toes and fingers, bilaterally. Normal proprioception (toe position and thumb). Normal finger vibration and toe vibration. Reflexes Right Left Bicep 2/4 2/4 Tricep 2/4 2/4 Brachioradialis 2/4 2/4 Patella 2/4 2/4 Ankle 2/4 2/4 No Clonus Negative Babinski (toes curl down) Hernandes sign not present Gait Able to stand without upper body assistance. Normal station and stride. No festination or retropulsion. Good arm swing and body turn. Assessment & Plan Madyson Mai is a 22 year old here today for initial evaluation. Madyson Mai has a unremarkable past medical history. Patient presents today for evaluation of POTS. Was evaluated by general neurology for 4 separate episodes of transient loss of consciousness. During 3 episodes patient was standing walking to the bathroom when she began to feel lightheaded and experienced tunnel vision. LOC occurred shortly after this. LOC typically short-lived usually less than 1 minute. No known convulsions or mouth maceration. Patient does admit to loss of bladder without bowel on 2 occasions. When patient is able to regain consciousness, she noted fatigue and/or confusion for around 20 to 30 minutes following event. Patient was never evaluated in ED for this. 1 episode of LOC occurred while patient was getting blood drawn. She was sitting getting blood drawn when she began to feel lightheaded and experienced tunnel vision. LOC occurred shortly after and lasted a few seconds. No convulsions, no mouth maceration, no loss of bowel or bladder. Ongoing symptoms when not experiencing LOC include nausea, dizziness, lightheadedness, fatigue, tremor, chest pain, heart rate and blood pressure fluctuations, and headaches. General neurology ordered a tilt table test which was positive for POTS. Also ordered an EEG which was unremarkable. Prior workup includes echo and Holter monitor which were unremarkable. Orthostatic vital signs obtained at today's visit show an increase in heart rate approximately 30 beats with standing. Neurological examination unremarkable. Discussed in depth diagnosis of POTS. Discussed conservative measures including increasing fluid, increasing sodium, wearing compression stockings, and increasing exercise. Patient was trialed on fludrocortisone, midodrine, and droxidopa previously by cardiology and failed. For now recommend none medication management. Also sent patient POTS empowerment document and will add patient to POTS SMA. Will follow-up in 3 months or sooner with new or worsening symptoms. Patient is aware and agrees to plan. Patient agrees to notify for new or worsening symptoms. Discussed red flag/signs/symptoms and when to proceed to the ER. Encounter Diagnosis ICD-10-CM 1. POTS (postural orthostatic tachycardia syndrome) G90.A No follow-ups on file. I spent a total of 55 minutes on the date of the service which included preparing to see the patient, [id number] patient care, completing clinical documentation, obtaining and/or reviewing separately obtained history, performing a medically appropriate examination, and counseling and educating the patient/family/caregiver. During our face to face clinical encounter we discussed my concerns neurologically in terms of diagnosis, impact on health and activities of living, and addressed questions. I tried to reassure the patient and also address questions. I explained to the patient to call if any questions, to review results, and I want to see them return for neurological follow up as mychart as next steps of communication is agreed upon Patient verbalizes understanding and I have addressed concerns and questions at this visit Patient has my contacts, educational material provided, and my chart sign up. After visit summary discussed. There is no problem list on file for this patient. No orders found for this visit on 11/30/23. Jyoti Dickey PA-C Neuromuscular Medicine [address] [place] [address]. [id number] Appointment: [phone] 1. This office note has been dictated and may contain minor typographic errors that escaped review 2. The nursing staff and medical assistants are a major part of YOUR TREATMENT TEAM and will be handling your phone calls and inquiries, if any. Unless explicitly told otherwise at the time of your office visit, your study results and ensuing treatment plans will be discussed during your follow-up appointment. If you do not have a follow-up appointment and wish to discuss any issues directly with me, please feel free to obtain one. 3. It is my practice to not fill disability or any other insurance-related forms/documention. All of the office notes, study results, and other pertinent documentation generated as part of your evaluation will be available to you and to your Primary Care Physician (PCP). Use of this material to complete such forms will be at the discretion of your PCP/referring physician Answers submitted by the patient for this visit: Compass 31 (Submitted on 11/26/2023) In the past year, have you ever felt faint, dizzy, goofy , or had difficulty thinking soon after standing up from a sitting or lying position?: Yes In the past year, have you ever noticed color changes in your skin, such as red, white, or purple?: Yes In the past 5 years, what changes, if any, have occurred in your general body sweating?: I sweat somewhat more than I used to Do your eyes feel excessively dry? : No Does your mouth feel excessively dry? : No In the past year, have you noticed any changes in how quickly you get full when eating a meal?: I get full less quickly now than I used to In the past year, have you felt excessively full or persistently full (bloated feeling) after a meal?: Never In the past year, have you vomited after a meal? : Never In the past year, have you had a cramping or colicky abdominal pain?: Sometimes In the past year, have you had any bouts of diarrhea?: No In the past year, have you been constipated? : No In the past year, have you ever lost control of your bladder function?: Never In the past year, have you had difficulty passing urine?: Never In the past year, have you had trouble completely emptying your bladder?: Never In the past year, without sunglasses or tinted glasses, has bright light bothered your eyes?: Occasionally In the past year, have you had trouble focusing your eyes?: Frequently Is this most troublesome symptom with your eyes (i.e. sensitivity to bright light or trouble focusing) getting:: Getting somewhat worse (Submitted on 11/26/2023) When standing up, how frequently do you get these feelings or symptoms?: Occasionally How would you rate the severity of these feelings or symptoms?: Moderate In the past year, have these feelings or symptoms that you have experienced:: Gotten somewhat worse (Submitted on 11/26/2023) What parts of your body are affected by these color changes? : Feet Are these changes in your skin color:: Staying about the same (Submitted on 11/26/2023) How severe is this sensitivity to bright light?: Moderate (Submitted on 11/26/2023) How severe is this focusing problem? : Moderate documented in this encounter [facility] 11-30-2023 Note HNO ID: [id number] Author: JYOTI DICKEY PA-C Service: ? Author Type: Physician Price Checker Type: Progress Notes Filed: 11/30/2023 11:14 Note Text: [facility] New Patient Evaluation Madyson Mai is a 22 year old right handed female. Patient presents with: New Patient Consult Madyson Mai is referred in consultation by Aurora Santiago PA-C for POTS. Final recommendations will be communicated to the requesting physician by way of a letter. PMH: - obesity Neurology, Aurora Santiago PA-C 10/10/2023: IMPRESSION/PLAN: (R40.4) Transient alteration of awareness (primary encounter diagnosis) (R55) Syncope, unspecified syncope type Madyson Schmid is a 22 year old female with history of Orthostatic intolerance, right knee patellofemoral pain, obesity. Chari presents to the office today for concerns of episodes of syncope with loss of awareness/consciousness, feeling disoriented, 2 episodes associated with bladder incontinence. She has reported total 4 episodes of syncope since 2020. Her last episode of syncope was April 2023 She does not have any positional dizziness, presyncope, or syncope associated with changing positions. She does not have any sensation of passing out if she is standing for prolonged period Of time. She reports shortness of breath, tightness in chest, chest pain. She has been seen by various providers locally in her area and was worked up for POTS concerns and was treated with various medications including beta-quentin/atenolol no benefit, Florinef caused GI side effects, midodrine caused GI side effects, droxidopa no benefits GI side effects and had no benefits Her neurological exam is unremarkable/nonfocal. Her orthostatics in office are negative for hypotension or tachycardia We will get tilt table test, Holter monitor for 2 weeks, echocardiogram, EEG prolonged and review results after testing. She will schedule a visit with neuromuscular for management of syncope, POTS or orthostatic hypotension. (Since she has failed various medications they can help better with medical decision making). Today: Patient presents today for evaluation of POTS. eb2020 had knee surgery and then passed out when she was using crutches. She was standing when she began to experience lightheadednes, dizziness, and tunnel vision. Experienced LOC and patient believes she was out for a few seconds. Witnessed by gigi who reports no convulsions, lost control of bladder, no mouth maceration. Did not go to the ER, reports that she felt hot and cold after and mildly confused. Within around 20 minutes patient was able to recover. September 2021 woke up in the middle of the night. Began to feel confused and experienced LOC while walking up the stairs. [place] prodromal symptoms including lightheadedness and tunnel vision. LOC unwitnessed, loss of bladder, no mouth maceration. Regained consciousness a few moments later where she was helped up and she went back to bed. March 2022. On vacation and she stood up in the middle of the night to use the bathroom. After washing hands experienced tunnel vision, dizziness, and lightheadedness. Experienced LOC which was heard by family who found her in on the bathroom floor. No loss of bowel or bladder, no mouth maceration. Following LOC patient was helped to bed and felt fatigued for around 30 minutes following event. April 2023 was at a doctors office getting lab work done. Had blood drawn, shortly after patient began to experience tunnel vision, lightheadedness, and dizziness and experienced LOC. Loc occurred for a few seconds. No convulsions, no loss of bowel or bladder, no mouth maceration. Confusion following event for around 20 minutes - was able to drive home and return to baseline. When not experiencing an episode - nausea - dizziness - lightheadedness - fatigue - tremor - chest pain - HR and BP fluctuations - headaches Was evaluated by cardiology in the past who completed holter monitor, echo, EKG and tilt - workup normal. Autonomic Screening Do you become dizzy or lightheaded with standing? Occasionally Do you notice your heart racing (tachycardia) with postural change? + Do you have syncope? + In the past month, did you have any falls? - How long can you stand (in minutes) before becoming symptomatic? Anytime Are symptoms worse after consuming a meal? + Are symptoms alleviated by sitting/laying down? + Autonomic check list: YES (Y) or NO (N) Dry mouth: - Dry eyes: - Change in sweat: + more Constipation: - Abdominal Bloating with shortly after eating: - Fluctuation of diarrhea and constipation: - Urination: + Change in taste: - Challenge swallowing foods: - Skin changes of blue or redness to distal limbs: + feet go red Fainting /near syncope/syncope: + syncope Dizziness: + Light headiness: + Chest pain: + Challenge in breathing: - Tac (more content not included)... [facility] 11-12-2023 Note HNO ID: [id number] Author: ?, ?, ? Service: ? Author Type: ? Type: Progress Notes Filed: 11/12/2023 14:43 Note Text: UNIVERSAL PROTOCOL / SAFETY CHECKLIST Procedure to be Performed: ANS with TILT Sign In: A Moment of CARE was completed. Personnel directly involved with the procedure wore the appropriate PPE (Personal Protective Equipment). Patient/Surrogate Stated/Verified: PATIENT VERIFIED(optional for EMERGENT procedures): Patient name, Date of , Relevant allergies, and The intended procedure Time Out Communication: Intended patient and procedure match the source documents. Consent documented and matches the intended procedure. No medications required for procedure. Sign Out: SIGN OUT (optional for EMERGENT procedures): Post-procedure follow-up management communicated and Plan of Care Visit completed when applicable. Gauri Harris [facility] 11-12-2023 History of Present illness Narrative UNIVERSAL PROTOCOL / SAFETY CHECKLIST Procedure to be Performed: ANS with TILT Sign In: A Moment of CARE was completed. Personnel directly involved with the procedure wore the appropriate PPE (Personal Protective Equipment). Patient/Surrogate Stated/Verified: PATIENT VERIFIED(optional for EMERGENT procedures): Patient name, Date of , Relevant allergies, and The intended procedure Time Out Communication: Intended patient and procedure match the source documents. Consent documented and matches the intended procedure. No medications required for procedure. Sign Out: SIGN OUT (optional for EMERGENT procedures): Post-procedure follow-up management communicated and Plan of Care Visit completed when applicable. Gauri Harris documented in this encounter [facility] 10-10-2023 Note HNO ID: [id number] Author: AURORA SANTIAGO PA-C Service: ? Author Type: Physician Price Checker Type: Progress Notes Filed: 10/10/2023 16:33 Note Text: [facility] New Patient Evaluation CHIEF COMPLAINT: to rule out autonomic disorder Madyson Schmid is a 22 year old female with history of Orthostatic intolerance, right knee patellofemoral pain, obesity. She is accompanied by -bambi and mother in law-Fifi. Self referred HPI: As per chart review: Seen by cardiology of episodes of syncope 3 episodes of syncope in March 2021, July 2021, and October 2021. -1 episode occurred after she had gotten up at 6:30 in the morning in the RV to go to the bathroom. She felt a little funny as she was getting ready to wash her hands and then she found her self down on the bathroom floor. She reports being panic as she found her self on the floor. She cannot recall any other symptoms. -Second episode occurred when she was walking up the stairs. -The third episode occurred on postop day #0 after she had knee surgery for knee pain. Findings from surgery were scar tissue per her report She can feel dizzy, hot, or lightheaded if she stands for long period of time Prior work up: Abnormal tilt table test, with a combination of cardioinhibitory and vasodepressive episode, she had low blood pressure and a heart rate of 34 6 minutes post sublingual nitroglycerin. Severe orthostatic hypotension with a blood pressure drop from 99 systolic to 72 systolic and heart rate increased from 62-122 Stress echocardiogram April 2022-normal good exercise tolerance appropriate hemodynamic response to exercise LVEF 55% no mitral regurgitation or LVOT obstruction at [facility] exercise hyperdynamic LV with ejection fraction of 85% patient exercised for 12 minutes and achieved 98% of her age-predicted maximum heart rate. Test was terminated due to fatigue. Echocardiogram April 2022-normal chamber dimensions normal LV function RV systolic pressure 70 mmHg LV wall thickness and chamber dimensions normal left atrial diameter 3.5 cm 30-day event monitor March 2022-39 patient triggered episodes all corresponded to normal sinus rhythm in the 70s and 80s and occasionally sinus tachycardia. No bradycardia dysrhythmias. Palpitations sometimes corresponded to sinus tachycardia overall the symptoms are very frequent with paucity of objective findings on the monitor 01/25/2022: CBC CMP ARMANI RA ESR CRP Unremarkable Today:10/10/2022: Main issues: Episodes of passing out SOB and chest tightness Episodes of passing out: Onset Jul 2021 4 episodes in total Description: Starts to feel sweaty and hot, vision goes black, finds herself on the floor, feels disoriented to where she is at and cannot recall what happened, she feels she has passed out for long time, but witness feels its was few seconds up to 20 seconds, and then does not feel right for the rest of the day -first episodes jul 2021-she was walking up the stairs and fell down and passed out, bladder loss -second episode-was in bathroom-jul 2021 passing urine-passed out, loss of bladder -third episodes-March 2022-she had used her bathroom and fell down and passed -last episodes was 04/25/2023-reports she was fasting for blood draw and passed out as blood was being drawn, no bladder loss -No shaking reported -No tongue bite -Bladder incontinence x 2 in the total 4 episodes No Dizziness with change in position No GI issues SOB, tightness of breathing and Chest pain: Onset 2021 SOB everyday Happens randomly, not related to activity, not related to change in position Lasts for hours Has left sided chest pain, happens randomly, not related to activity, almost every day, lasts up to couple of hours Sensations of heart beat gone missing No palpitations -No dizziness or pre-syncope like feeling with change in position from sitting to standing or from laying down to sitting -No falls -No pre syncope like symptoms in between described episodes of syncope -No GI issues-no constipation, diarrhea, no bloating -No dry mouth or dry eyes -No tingling numbness in extremities Hx of head/neck trauma? no Hx of severe viral illness? no Hx of autoimmune disease? no History of emotional or physical abuse? No. Grew up between mother and maternal grand parents No h/o anxiety depression or panic attack No prior history of epilepsy, febrile Sz in childhood Tried various medications: BB(atenolol)-no benefit Florinef caused GI upset Midodrine intolerance and GI upset Droxidopa 100 mg tid-most recently prescribed-did not tolerate-GI side effects She is not on BC She does intent to get in the near future Social drinking, no smoking, no illegal drugs use Relevant Current Medications: None in the past 6 months Medications No current outpatient medications on file. No current facility-adminis (more content not included)... [facility] 10-10-2023 Note HNO ID: [id number] Author: ANGELIQUE RUTH MD Service: ? Author Type: Physician Type: Procedures Filed: 02/24/2024 20:55 Note Text: Patient Name: Madyson Mai : 2000 Ordering Provider: AURORA SANTIAGO Indication: R55 Syncope and collapse Type of Monitor: Extended Monitoring-Zio Patch Enrollment Dates: 10/12/2023-10/18/2023 IRHYTHM FINDINGS: Patient had a min HR of 55 bpm, max HR of 146 bpm, and avg HR of 86 bpm. Predominant underlying rhythm was Sinus Rhythm. Isolated SVEs were rare (<1.0%), SVE Couplets were rare (<1.0%), and SVE Triplets were rare (<1.0%). Isolated VEs were rare (<1.0%), and no VE Couplets or VE Triplets were present. [facility] 07-20-2023 Telephone encounter Note Call to Madyson to discuss referral to dysautonomia clinic. Informed her that we are unable to provide dysautonomia evaluation at this time. Provided number for [facility] scheduling service. No other needs at this time. [facility] 07-20-2023 Miscellaneous Notes Call to Madyson to discuss referral to dysautonomia clinic. Informed her that we are unable to provide dysautonomia evaluation at this time. Provided number for [facility] scheduling service. No other needs at this time. documented in this encounter [facility] 07-10-2023 Note HNO ID: [id number] Author: Jose Armando Grey, DO Service: ? Author Type: Physician Type: Progress Notes Filed: 07/10/2023 10:08 AM Note Text: [facility] Office Visit Documentation Note [facility] [place] HISTORY OF PRESENT ILLNESS (HPI) CHIEF COMPLAINT / REASON FOR VISIT SERVICE DATE: July 10, 2023 PCP: No primary care provider on file. Madyson Schmid is here today at request of Dr. Jose Armando Schmid specifically for consultation of my opinion in regards to the chief complaint listed below. Correspondence will be shared today via the [facility] electronic health record or through regular mail, where applicable. Madyson Schmid is a 22 year old female who presents today for a new evaluation of following complaint: Patient presents with: Right Knee - New Patient HISTORY OF PRESENT ILLNESS (HPI) PAIN EVALUATION 07/09/2023 2155 Pain Level: 7 Pain Location: Knee-Right Description: Aching;Pulsating;Sharp;Spasm Frequency: Continuous with the presenting complaint of New Patient of the Right Knee Brief overview: Patient states she had surgery in July 2021 for meniscus tear. Patient states that in July 2022 her knee started bothering her again. Patient denies injury. Aggravating Factors Does anything make it worse?: standing for long periods of time, driving Activity level: Low Locking - no Madyson reports a current pain level of 7 (Knee-Right). She describes the pain as Aching, Pulsating, Sharp, Spasm. The pain is Continuous . No knee imaging is available at this time. PREVIOUS TREATMENTS: Treatments so far have included medication (Voltaren Gel, Tylenol, Ibuprofen, Aleve), physical therapy (completed in the past), injection (steroid injection to the right knee, did not help), the assistive use of a brace, and surgery (2020). REVIEW OF SYSTEMS ROS: Neurologic: Any numbness or tingling? No Endocrine: Any diagnosis of diabetes? No ALLERGIES ALLERGIES Allergen Reactions Narcotics [Opioids * Other: See Comments Fainting/Urinary Incontinence Prednisone Other: See Comments Fainting/Urinary incontinence PAST MEDICAL HISTORY No past medical history on file. PHYSICAL EXAMINATION Body Habitus: well nourished, no acute distress, and alert and oriented Psych: normal Sensation: sensation to light touch is grossly normal bilaterally Skin: Color, texture, turgor normal. No rashes or lesions Swelling: no swelling noted Gait: Normal, the patient did not have trouble getting onto the exam table. ORTHO EXAM: Ortho Exam Knee: Exam is stable in varus and valgus Hip ROM stable Knee ROM is normal Medial knee pain is at joint line, but negative Aleksander and Thessaly. Gluteal bridge- weak within 5 seconds IMAGING/LABORATORY IMAGING: No imaging was performed today. ASSESSMENT / PLAN CLINICAL IMPRESSION / ASSESSMENT: CLINICAL IMPRESSION / ASSESSMENT: (M25.561, G89.29) Chronic pain of right knee (primary encounter diagnosis) (M67.959) Tendinopathy of gluteal region RECOMMENDATION / PLAN: Counseled. Needs to work on gluteal and quad strength as the sole treatment for 3-4 months. Essentially, needs to get moving and work on exercise goals. Admits that she doesn't like PT, as it doesn't work. I've explained timing and expectations. She need to consider PT or manager personal. Reaction knee brace Consider [place] toradol, did discuss orthobiologics Follow up: Films prior to visit: Written instructions (see patient instructions) and verbal health education given to patient. Patient verbalizes understanding and agrees with the treatment plan. Jose Armando Grey D.O. [facility] Strategist, [facility] Program Team Physician, [facility] [employer] Consulting Physician, [facility] [place] Nagel, Research Food Technologist [phone] [facility] 07-10-2023 History of Present illness Narrative Images from the original note were not included. [facility] Office Visit Documentation Note [facility] [place] HISTORY OF PRESENT ILLNESS (HPI) CHIEF COMPLAINT / REASON FOR VISIT SERVICE DATE: July 10, 2023 PCP: No primary care provider on file. Madyson Schmid is here today at request of Dr. Jose Armando Schmid specifically for consultation of my opinion in regards to the chief complaint listed below. Correspondence will be shared today via the [facility] electronic health record or through regular mail, where applicable. Madyson Schmid is a 22 year old female who presents today for a new evaluation of following complaint: Patient presents with: Right Knee - New Patient HISTORY OF PRESENT ILLNESS (HPI) PAIN EVALUATION 07/09/2023 2155 Pain Level: 7 Pain Location: Knee-Right Description: Aching;Pulsating;Sharp;Spasm Frequency: Continuous with the presenting complaint of New Patient of the Right Knee Brief overview: Patient states she had surgery in July 2021 for meniscus tear. Patient states that in July 2022 her knee started bothering her again. Patient denies injury. Aggravating Factors Does anything make it worse?: standing for long periods of time, driving Activity level: Low Locking - no Madyson reports a current pain level of 7 (Knee-Right). She describes the pain as Aching, Pulsating, Sharp, Spasm. The pain is Continuous . No knee imaging is available at this time. PREVIOUS TREATMENTS: Treatments so far have included medication (Voltaren Gel, Tylenol, Ibuprofen, Aleve), physical therapy (completed in the past), injection (steroid injection to the right knee, did not help), the assistive use of a brace, and surgery (2020). REVIEW OF SYSTEMS ROS: Neurologic: Any numbness or tingling? No Endocrine: Any diagnosis of diabetes? No ALLERGIES ALLERGIES Allergen Reactions Narcotics [Opioids * Other: See Comments Fainting/Urinary Incontinence Prednisone Other: See Comments Fainting/Urinary incontinence PAST MEDICAL HISTORY No past medical history on file. PHYSICAL EXAMINATION Body Habitus: well nourished, no acute distress, and alert and oriented Psych: normal Sensation: sensation to light touch is grossly normal bilaterally Skin: Color, texture, turgor normal. No rashes or lesions Swelling: no swelling noted Gait: Normal, the patient did not have trouble getting onto the exam table. ORTHO EXAM: Ortho Exam Knee: Exam is stable in varus and valgus Hip ROM stable Knee ROM is normal Medial knee pain is at joint line, but negative Aleksander and Thessaly. Gluteal bridge- weak within 5 seconds IMAGING/LABORATORY IMAGING: No imaging was performed today. ASSESSMENT / PLAN CLINICAL IMPRESSION / ASSESSMENT: CLINICAL IMPRESSION / ASSESSMENT: (M25.561, G89.29) Chronic pain of right knee (primary encounter diagnosis) (M67.959) Tendinopathy of gluteal region RECOMMENDATION / PLAN: Counseled. Needs to work on gluteal and quad strength as the sole treatment for 3-4 months. Essentially, needs to get moving and work on exercise goals. Admits that she doesn't like PT, as it doesn't work. I've explained timing and expectations. She need to consider PT or manager personal. Reaction knee brace Consider [place] toradol, did discuss orthobiologics Follow up: Films prior to visit: Written instructions (see patient instructions) and verbal health education given to patient. Patient verbalizes understanding and agrees with the treatment plan. Jose Armando Grey D.O. [facility] Strategist, [facility] [employer] Program Team Physician, [facility] [employer] Consulting Physician, [facility] [place] Nagel, Research Food Technologist [phone] documented in this encounter [facility] 12-28-2022 History of Present illness Narrative Madyson Schmid is a 21 year old female who presents for follow up: [facility] LABS negative sed rate and crp Negative RF and ccp Negative ARMANI and JASON panel PREVIOUS DIAG rash , arthralgias INTERVAL HISTORY tried MTX for at least 3month no effect, and stopped it both knees bothers her almost her daily , rt >lft and now has pain in both feet Rt knee becomes red hot and swollen from time to time , similar sx of left knee but mildder Em stiffness- none No rash, ulcers, fevers, swollen lymph nodes, DVT/PE, raynauds, sicca symptoms, trouble swallowing, back pain, red eyes, Chron's/UC or Psoriasis. MEDS/THERAPIES TRIED: NSAIDS mobic- did not help Prednisone- did not help and severe side effects ''nothing has helped'' Tried plaquenil- for 2 months, no effect and too many side effects Tried MTX- for at least 3months, no effect REVIEW OF SYSTEMS GENERAL: No weight loss, malaise or fevers., SEE HPI HEENT: Negative for frequent or significant headaches, No changes in hearing or vision, no nose bleeds or other nasal problems RESPIRATORY: Negative for cough, wheezing or shortness of breath. CARDIOVASCULAR: Negative for chest pain, leg swelling or palpitations. GI: Negative for abdominal discomfort, blood in stools or black stools or change in bowel habits MUSCULOSKELETAL :see HPI SKIN: Negative for lesions, rash, and itching. PSYCH: Negative for sleep disturbance, mood disorder and recent psychosocial stressors. NEURO: No history of syncope, paralysis, seizures or tremors All other reviewed and negative other than HPI. No past medical history on file. No past surgical history on file. methotrexate 2.5 mg tablet TAKE 4 TABS PO QWK FOR 2WKS THEN INCREASE TO 6 TABS PO QWK folic acid 1 mg tablet Take 1 tablet by mouth once daily. droxidopa (NORTHERA) 100 mg capsule 100 mg three times daily. No family history on file. Social History Tobacco Use Smoking status: Never Passive exposure: Never Smokeless tobacco: Never BP 119/86 Pulse 79 Resp 16 Wt 89.4 kg (197 lb) BMI 32.78 kg/m PE: Pleasant mood. No acute distress. Examination of the skin: She has no rashes, ulcers, nodules or tightening of the skin. Eyes: Pupils are equal in size and reactive to light. Conjunctivae are noninjected. Sclerae are anicteric. Ears, Nose, Mouth and Throat: Nasal mucosa and septum appear normal. Teeth and gums appear normal. Oropharynx is clear of erythema and exudate. Hearing is grossly normal. Neck: Supple. There is no JVD. Trachea is in the midline. There are no palpable lymph nodes or scars. Musculoskeletal: Normal gait and station. Digits and nails appear normal. All joints were examined and were normal without pain, tenderness, swelling, deformity, deformity/sublaxation, and with full range of motion except stiffness of bilateral knees, rt >left No overt swelling noted of any joints No pain on palpation of rt knee or feet MOST RECENT LABS: REVIEWED WITH PATIENT IMP/PLAN: - Regarding acute onset of swelling, redness and pain in rt knee, later left knee and now bilateral toes which only occcurs after standing >20minutes- DD include early inflammatory arthritis vs mechanical -patient has tried nsaids, steroids with no relief -has seen ortho, had orthoscopic surgery of rt knee without much improvement -has seen derm, had skin biopsy but no diagnosis given -has seen rheum in past, no diagnosis givne, told to lose weight per patient. -will check labs today - obtain MRI of rt knee done with ortho -consider plaquenil in future for ? Palindromic RA. Strong FH of RA in father -check for C1 esterase inhibitor- no reports of angioedema but knee pain and swelling associated with erythematous haile rash on joints She returns today- tried plaquenil but stopped after 2months due to side effects and it not helping Today has pain of both knees, rt >lft and also both feet Joints are more stiff and achy as weather is cooler -will try MTX for patient. RBA discussed , she is aware she cannot get . Using BC pills currently She returns today - tried mtx for 3months with no improvement Continues to have stiffness of both knees, rt >left -will not try any more immunosuppressants at this time -do not supsect inflammatory component but rather mechanical causes for arthralgias -can try a different nsaids, tried mobic in past with no relief -will try voltaren bid prn -follow up prn -follow up with ortho Rt knee s/p arthroscopy-Ortho did MRI of rt knee- thought there was a torn meniscus so had arthroscopic surgery on 08/14 - found a lot of scar tissue, cleaned it out, but no improvement after surgery Evaluated by DR Case ([facility]) in 2020 no rheum issue found and told to ''lose weight'' new onset sob, had Echo and found to have trace mitral and tricuspid and trace pulmonic regurgitation. appt with cardiology F/U:4m Check following: Irvin Hanna MD Answers submitted by the patient for this visit: Review of Systems Rheumatology (Submitted on 07/30/2022) Fever : No Recent Unintentional Weight Change: No Eye Pain: No Eye Redness: No Vision Disturbance: No Eye Dryness: No Nose Bleeds: No Sores in your Mouth: No Trouble Swallowing: No Dry Mouth: No Chest Pain: Yes Leg Swelling: No A Cough: No Shortness of Breath: Yes Pain with Breathing: Yes Heartburn: No Abdominal Pain: Yes Diarrhea: No Black Tarry Stools: No Blood in Urine: No Pain or Burning with Urination: No Joint Pain or Stiffness: No Muscle Weakness: No Muscle Aches: No Joint Swelling: No Morning Stiffness in Joints: No A Rash: Yes Do you have sun sensitive rashes?: No Skin Color Changes: No Hair Loss: No Nail Changes: No Headaches: Yes Numbness: No Memory Loss: No Swollen Glands: No documented in this encounter [facility] 07-31-2022 History of Present illness Narrative Madyson Schmid is a 21 year old female who presents for follow up: RHEUM LABS negative sed rate and crp Negative RF and ccp Negative ARMANI and JASON panel PREVIOUS DIAG rash , arthralgias INTERVAL HISTORY tried plaquenil, no effect, stopped after 2months due to side effects both knees bothers her almost her daily , rt >lft and now has pain in both feet Rt knee becomes red hot and swollen Em stiffness- none No rash, ulcers, fevers, swollen lymph nodes, DVT/PE, raynauds, sicca symptoms, trouble swallowing, back pain, red eyes, Chron's/UC or Psoriasis. MEDS/THERAPIES TRIED: NSAIDS mobic- did not help Prednisone- did not help and severe side effects ''nothing has helped'' Tried plaquenil- for 2 months, no effect and too many side effects REVIEW OF SYSTEMS GENERAL: No weight loss, malaise or fevers., SEE HPI HEENT: Negative for frequent or significant headaches, No changes in hearing or vision, no nose bleeds or other nasal problems RESPIRATORY: Negative for cough, wheezing or shortness of breath. CARDIOVASCULAR: Negative for chest pain, leg swelling or palpitations. GI: Negative for abdominal discomfort, blood in stools or black stools or change in bowel habits MUSCULOSKELETAL :see HPI SKIN: Negative for lesions, rash, and itching. PSYCH: Negative for sleep disturbance, mood disorder and recent psychosocial stressors. NEURO: No history of syncope, paralysis, seizures or tremors All other reviewed and negative other than HPI. No past medical history on file. No past surgical history on file. No prescriptions on file. No family history on file. Social History Tobacco Use Smoking status: Never Passive exposure: Never Smokeless tobacco: Never BP 109/71 Pulse 92 Wt 89.8 kg (198 lb) BMI 32.95 kg/m PE: Pleasant mood. No acute distress. Examination of the skin: She has no rashes, ulcers, nodules or tightening of the skin. Eyes: Pupils are equal in size and reactive to light. Conjunctivae are noninjected. Sclerae are anicteric. Ears, Nose, Mouth and Throat: Nasal mucosa and septum appear normal. Teeth and gums appear normal. Oropharynx is clear of erythema and exudate. Hearing is grossly normal. Neck: Supple. There is no JVD. Trachea is in the midline. There are no palpable lymph nodes or scars. Musculoskeletal: Normal gait and station. Digits and nails appear normal. All joints were examined and were normal without pain, tenderness, swelling, deformity, deformity/sublaxation, and with full range of motion except no synovitis of any joints No overt swelling noted of any joints No pain on palpation of rt knee or feet MOST RECENT LABS: REVIEWED WITH PATIENT IMP/PLAN: - Regarding acute onset of swelling, redness and pain in rt knee, later left knee and now bilateral toes which only occcurs after standing >20minutes- DD include early inflammatory arthritis vs mechanical -patient has tried nsaids, steroids with no relief -has seen ortho, had orthoscopic surgery of rt knee without much improvement -has seen derm, had skin biopsy but no diagnosis given -has seen rheum in past, no diagnosis givne, told to lose weight per patient. -will check labs today - obtain MRI of rt knee done with ortho -consider plaquenil in future for ? Palindromic RA. Strong FH of RA in father -check for C1 esterase inhibitor- no reports of angioedema but knee pain and swelling associated with erythematous haile rash on joints She returns today- tried plaquenil but stopped after 2months due to side effects and it not helping Today has pain of both knees, rt >lft and also both feet Joints are more stiff and achy as weather is cooler -will try MTX for patient. RBA discussed , she is aware she cannot get . Using BC pills currently Rt knee s/p arthroscopy-Ortho did MRI of rt knee- thought there was a torn meniscus so had arthroscopic surgery on 08/14 - found a lot of scar tissue, cleaned it out, but no improvement after surgery Evaluated by DR Case ([facility]) in 2020 no rheum issue found and told to ''lose weight'' new onset sob, had Echo and found to have trace mitral and tricuspid and trace pulmonic regurgitation. appt with cardiology F/U:4m Check following: Irvin Hanna MD Answers submitted by the patient for this visit: Review of Systems Rheumatology (Submitted on 07/30/2022) Fever : No Recent Unintentional Weight Change: No Eye Pain: No Eye Redness: No Vision Disturbance: No Eye Dryness: No Nose Bleeds: No Sores in your Mouth: No Trouble Swallowing: No Dry Mouth: No Chest Pain: Yes Leg Swelling: No A Cough: No Shortness of Breath: Yes Pain with Breathing: Yes Heartburn: No Abdominal Pain: Yes Diarrhea: No Black Tarry Stools: No Blood in Urine: No Pain or Burning with Urination: No Joint Pain or Stiffness: No Muscle Weakness: No Muscle Aches: No Joint Swelling: No Morning Stiffness in Joints: No A Rash: Yes Do you have sun sensitive rashes?: No Skin Color Changes: No Hair Loss: No Nail Changes: No Headaches: Yes Numbness: No Memory Loss: No Swollen Glands: No documented in this encounter [facility] 07-10-2022 History of Present illness Narrative Most recently seen by me July 10 2022, saw EP 07/21/2022, reviewed notes by EP reviewed laboratory data, patient continues to have profound lightheadedness with sudden changes in posture, she did have 1 episode of syncope in the recent past while she was bending over and straightening herself up. At the suggestion of parents she did get a second opinion in [place], and no change in medication was suggested EP recommended Zio patch, she developed a rash, she is continuing the extended monitoring. She had some inflammatory symptoms in her knees, and was just started on methotrexate. She says that her blood pressure has been higher since the methotrexate was started. I suspect that the the blood pressure improved with initiation of droxidopa. Patient could not tolerate Florinef or ProAmatine, and she has not tolerated beta-quentin either.At this point, patient will continue management per EP service, and she can see me on an as-needed basis. I suggested that she continue attempts at getting some type of regular aerobic activity. Even if it is for short periods of time, she should do some aerobic activity, because this will help her symptoms and help with cardiovascular conditioning.History so far :1. Multiple bouts of syncope, always while upright, along with some orthostatic lightheadedness every morning. Baseline blood pressure is on the low side.2. Increasing episodes of sudden onset of severe shortness of breath sometimes preceded by chest tightness-etiology is unclear, frequency is increasing, duration is also increasing3. Palpitations, with positive findings on Holter monitor4. Structurally normal heart with functionally normal valves and structurally normal valves, RVSP estimated at 25 mmHg at rest.5. Increased BMI6.pulmonary function testing April 2022-DLCO 27.3 which is 103% predicted, FEV1 over FVC 69% which is moderately decreased, FEF 2575 1.89 m/s which is 50% predicted. No response to bronchodilators. The study was reported to be consistent with chronic persistent asthma.7.Pt is on control pills.8. Stress echocardiogram April 2022-normal good exercise tolerance appropriate hemodynamic response to exercise LVEF 55% no mitral regurgitation or LVOT obstruction at peak exercise hyperdynamic LV with ejection fraction of 85% patient exercised for 12 minutes and achieved 98% of her age-predicted maximum heart rate. Test was terminated due to fatigue.9. Echocardiogram April 2022-normal chamber dimensions normal LV function RV systolic pressure 70 mmHg LV wall thickness and chamber dimensions normal left atrial diameter 3.5 cm10. 30-day event monitor March 2022- patient triggered episodes all corresponded to normal sinus rhythm in the 70s and 80s and occasionally sinus tachycardia. No bradycardia dysrhythmias. Palpitations sometimes corresponded to sinus tachycardia overall the symptoms are very frequent with paucity of objective findings on the . Abnormal tilt table test, with a combination of cardioinhibitory and vasodepressive episode, she had low blood pressure and a heart rate of 34 6 minutes post sublingual nitroglycerin.12. Severe orthostatic hypotension with a blood pressure drop from 99 systolic to 72 systolic and heart rate increased from 60-1 22.13. Intolerance to Florinef-GI upset14. Intolerance to ProAmatineThis patient has neurally mediated syncope near syncope profound orthostatic dizziness that is affecting her quality of life. She has preserved LV systolic function.She has multiple medication intolerances. Lifestyle modifications have been reiterated. She is continuing that. She was just started on droxidopa at a lower dose. She was not orthostatic in office today.Her event monitor from July 2022 had 66 patient events no triggered events all rhythms were sinus sometimes with isolated supraventricular premature beats or sinus tachycardia average heart rate 80 bpm maximum heart rate 167 bpm consistent with sinus tachycardia minimum heart rate 45 bpm bradycardia at 3:35 PM. Less than 1% PVCs less than 1% PACs-Per Dr. Bunn report.My thought would be to consider sertraline, but I will defer that to Dr. Link [facility] DO Work Phone: 06-12-2022 Note Pre-procedure Verifi cation and Time Out: Pre-Procedure Verification and Time Out: Procedure Locationbedside PRE-PROCEDURE Verificationcompleted TIME OUT - Final Verificationcompleted immediately prior to procedure start General Information: Anesthesia Critical Care: Non-Anesthesia Date/Time of Procedure: 12-Jun-2022 Post-Procedure Diagnosis: syncope Procedure Name: tilt table test Findings: grossly normal anatomy Procedure performed by: me Price Checker(s): none Estimated Blood Loss (mL): none Specimen: no Indication(s): syncope Informed Consent: written consent obtained Procedure Details: Procedure Details: Tilt Table Study Summary: Abnormal Tilt table testing for Neurally Mediated Syncope. Vasodepressor and cardioinhibitory (mixed) response to head up tilt testing. Recommendations: 1.The patient should continue with the present medications. Increased oral fluid intake is recommended. Use of compression stockings is recommended. Discharge: 1.Patient was discharged from procedure room after vital signs returned to baseline. Follow up: 1.Follow up with PCP or cardiology office in six weeks. Procedures: Tilt table test. Diagnosis syncope Patient history: Health history was acquired from the patient's chart and the patient. Signs/symptoms include lightheadedness and syncope. Procedure narrative: The risks, benefits, and alternatives to the procedure were explained to the patient, and informed consent was obtained. The patient was in the fasting state. A baseline ECG was recorded. Self-adhesive anterior-posterior defibrillation pads were applied. A ZOLL defibrillator was used for monitoring. The patient was set up for continuous monitoring of surface 12 lead ECG. Blood pressure was monitored with automatic cuff measurements. 1.The peripheral vein was obtained for intravenous fluid administration. 2.The patient was placed on a tilt table, and soft protection belts applied for patient safety. Vital signs were monitored and documented the first 15 minutes in the supine position for baseline readings. BP 113/72, HR 69 bpm, NSR. Upon completion of 15 minutes, the table was tilted to with a table angle of 70 , and vital signs were recorded every one minute for 20 minutes. The patient was instructed to report any symptoms during the procedure. 3.The patient remained asymptomatic and the table placed in the supine position. Nitroglycerin 0.3 mg was given sublingually. Again, the table was tilted to 70 degrees. Vital signs were monitored and documented every one minute and the patient instructed to report any symptoms. 4.At 6 minutes after nitroglycerin, the patient was symptomatic with hot feeling then syncope (BP not able to be recorded, HR 34 bpm, sinus bradycardia), and the patient was returned to the supine position until fully recovered. IV fluids were administered. 5.After vital signs normalized, the peripheral IV was discontinued. See signed procedural log and parameters. Complications: The patient tolerated the procedure without any complications or incident. EBL 0cc Specimens obtained: No Prepared and signed by. Tolerance: good Complications: none Electronic Signatures: Annalee Maza) (Signed 14-Jun-2022 11:56) Authored: Pre-procedure Verification and Time Out, General Information, Procedure Details, Note Completion Last Updated: 14-Jun-2022 11:56 by Annalee Maza) [facility] 03-24-2022 History of Present illness Narrative Patient was first seen in March 2022 and presents for follow-up after testing.She is a 21-year-old female who was seen in cardiology consultation at the request of Ibis Colbert NP, for bouts of severe shortness of breath. She says that over the past couple of years she has had these episodes that would come sporadically and very infrequently. In the last several months the episodes are much more frequent. She cannot relate any precipitating factor such as exposure to extreme heat or humidity, recognized emotional distress, food, environmental pollutants, it never occurs at night, it is not related to activity or meals.She was wearing her 30-day event monitor she was on vacation part of the time, she was up washing up in the morning, passed out, the service did call me, this was sinus tachycardia but no other dysrhythmia. She refused ER. From what was described it sounded like a vasodepressor spell or a simple fainting spell. In the last 8 months she says she has passed out 3 times, one was while walking upstairs, in the morning to use the bathroom, the other episode was while she was on vacation, again she was up washing her face at the sink, and the third episode was in the morning while walking to the bathroom.She will see city detective in the near future, she had her pulmonary function test which I reviewed, there is concern for chronic asthma, but no reactive airway disease.She has 3 dogs that she had, and 1 cat at home.She is not orthostatic. She is feeling palpitations quite a bit.Results of the pulmonary function test and a [employer]ah of [employer] was reviewed. Also reviewed stress test and echocardiogram results.At this point, her symptoms are pointing towards vasodepressor syncope, sinus tachycardia possibly inappropriate, possibly autonomic dysfunction. Shortness of breath may or may not be explained on the basis of the abnormalities on her pulmonary function testing.Assessment :1. Multiple bouts of syncope, always while upright, along with some orthostatic lightheadedness every morning. Baseline blood pressure is on the low side.2. Increasing episodes of sudden onset of severe shortness of breath sometimes preceded by chest tightness-etiology is unclear, frequency is increasing, duration is also increasing3. Palpitations, with positive findings on Holter monitor4. Structurally normal heart with functionally normal valves and structurally normal valves, RVSP estimated at 25 mmHg at rest.5. Increased BMI6.pulmonary function testing April 2022-DLCO 27.3 which is 103% predicted, FEV1 over FVC 69% which is moderately decreased, FEF 2575 1.89 m/s which is 50% predicted. No response to bronchodilators. The study was reported to be consistent with chronic persistent asthma.7.Pt is on control pills.8. Stress echocardiogram April 2022-normal good exercise tolerance appropriate hemodynamic response to exercise LVEF 55% no mitral regurgitation or LVOT obstruction at peak exercise hyperdynamic LV with ejection fraction of 85% patient exercised for 12 minutes and achieved 98% of her age-predicted maximum heart rate. Test was terminated due to fatigue.9. Echocardiogram April 2022-normal chamber dimensions normal LV function RV systolic pressure 70 mmHg LV wall thickness and chamber dimensions normal left atrial diameter 3.5 cm10. 30-day event monitor March 2022- patient triggered episodes all corresponded to normal sinus rhythm in the 70s and 80s and occasionally sinus tachycardia. No bradycardia dysrhythmias. Palpitations sometimes corresponded to sinus tachycardia overall the symptoms are very frequent with paucity of objective findings on the monitorAssessment and Recommendations:1. Patient has a structurally normal heart, her functional capacity despite her symptoms of sudden onset of shortness of breath was quite good, and her cardiac hemodynamics were also good. At this point, her symptoms are pointing towards a pulmonary etiology, and she may benefit from a methacholine challenge or allergy testing, but I will defer all that to pulmonary expertise. She did not have response to bronchodilators.2. Lifestyle modification was reiterated.3. I offered to do a tilt table test, and she would actually like to proceed, will need test prior to that, we will have to schedule at [facility], and patient is okay with driving.4. Lifestyle modifications such as regular aerobic activity as tolerated, excessive sodium intake, and possibly low-dose beta-blockers can be tried. If her breathing gets worse on the beta-blockers, then she should stop it. We will decide after seen by pulmonary, and also after the results of culpable test are available. [facility] Work Phone: 03-24-2022 History of Present illness Narrative Patient was first seen in March 2022 and presents for follow-up after testing.She is a 21-year-old female who was seen in cardiology consultation at the request of Ibis Colbert NP, for bouts of severe shortness of breath. She says that over the past couple of years she has had these episodes that would come sporadically and very infrequently. In the last several months the episodes are much more frequent. She cannot relate any precipitating factor such as exposure to extreme heat or humidity, recognized emotional distress, food, environmental pollutants, it never occurs at night, it is not related to activity or meals.She was wearing her 30-day event monitor she was on vacation part of the time, she was up washing up in the morning, passed out, the service did call me, this was sinus tachycardia but no other dysrhythmia. She refused ER. From what was described it sounded like a vasodepressor spell or a simple fainting spell. In the last 8 months she says she has passed out 3 times, one was while walking upstairs, in the morning to use the bathroom, the other episode was while she was on vacation, again she was up washing her face at the sink, and the third episode was in the morning while walking to the bathroom.She will see city detective in the near future, she had her pulmonary function test which I reviewed, there is concern for chronic asthma, but no reactive airway disease.She has 3 dogs that she had, and 1 cat at home.She is not orthostatic. She is feeling palpitations quite a bit.Results of the pulmonary function test and a [employer] was reviewed. Also reviewed stress test and echocardiogram results.At this point, her symptoms are pointing towards vasodepressor syncope, sinus tachycardia possibly inappropriate, possibly autonomic dysfunction. Shortness of breath may or may not be explained on the basis of the abnormalities on her pulmonary function testing.Assessment :1. Multiple bouts of syncope, always while upright, along with some orthostatic lightheadedness every morning. Baseline blood pressure is on the low side.2. Increasing episodes of sudden onset of severe shortness of breath sometimes preceded by chest tightness-etiology is unclear, frequency is increasing, duration is also increasing3. Palpitations, with positive findings on Holter monitor4. Structurally normal heart with functionally normal valves and structurally normal valves, RVSP estimated at 25 mmHg at rest.5. Increased BMI6.pulmonary function testing April 2022-DLCO 27.3 which is 103% predicted, FEV1 over FVC 69% which is moderately decreased, FEF 2575 1.89 m/s which is 50% predicted. No response to bronchodilators. The study was reported to be consistent with chronic persistent asthma.7.Pt is on control pills.8. Stress echocardiogram April 2022-normal good exercise tolerance appropriate hemodynamic response to exercise LVEF 55% no mitral regurgitation or LVOT obstruction at peak exercise hyperdynamic LV with ejection fraction of 85% patient exercised for 12 minutes and achieved 98% of her age-predicted maximum heart rate. Test was terminated due to fatigue.9. Echocardiogram April 2022-normal chamber dimensions normal LV function RV systolic pressure 70 mmHg LV wall thickness and chamber dimensions normal left atrial diameter 3.5 cm10. 30-day event monitor March 2022- patient triggered episodes all corresponded to normal sinus rhythm in the 70s and 80s and occasionally sinus tachycardia. No bradycardia dysrhythmias. Palpitations sometimes corresponded to sinus tachycardia overall the symptoms are very frequent with paucity of objective findings on the monitorAssessment and Recommendations:1. Patient has a structurally normal heart, her functional capacity despite her symptoms of sudden onset of shortness of breath was quite good, and her cardiac hemodynamics were also good. At this point, her symptoms are pointing towards a pulmonary etiology, and she may benefit from a methacholine challenge or allergy testing, but I will defer all that to pulmonary expertise. She did not have response to bronchodilators.2. Lifestyle modification was reiterated.3. I offered to do a tilt table test, and she would actually like to proceed, will need test prior to that, we will have to schedule at [facility], and patient is okay with driving.4. Lifestyle modifications such as regular aerobic activity as tolerated, excessive sodium intake, and possibly low-dose beta-blockers can be tried. If her breathing gets worse on the beta-blockers, then she should stop it. We will decide after seen by pulmonary, and also after the results of culpable test are available. -[facility] [employer] DO Work Phone: [phone] Miscellaneous Notes Spoke with patient. Given message below with understanding voiced. Please tell her all testing returned negative so far. Can start plaquenil as we discussed at last visit to prevent future flare ups Please tell her as follows- Start Plaquenil - one tab twice a day , it will take about 3months to take effect. You have to have an eye exam within 30 days of starting it. Please see an Opthalmologist and let him/her know you are taking the Plaquenil. Most common side effects of the Plaquenil are stomach upset and rash. The following approved medication requests have been transmitted electronically. Signed Prescriptions Disp Refills hydrOXYchloroQUINE (PLAQUENIL) 200 mg tablet 60 tablet 3 Sig: Take 1 tablet by mouth twice daily. Authorizing Provider: IRVIN HANNA MD Susan P Mathai, MD documented in this encounter [facility] 01-25-2022 History of Present illness Narrative Madyson Schmid is a 21 year old female who presents for ''inflammation of knees'' HPI: 21 yr female with c/o ''inflammation of rt knee'' which started in 11/14, no trauma prior Has seen Derm, Ortho and vascular and no reason found for the inflammation. Rt knee becomes red hot and swollen, mostly every day after standing for 20minutes. lft knee has similar complaints. After standing now for >20 minutes both knees become red and hot. They become painful as well Now similar complaints of toes as well. Not much pain in feet Symptoms resolve after sitting. No pain currently as she is sitting. No other pain in joints Ortho did MRI of rt knee- thought there was a torn meniscus so had arthroscopic surgery on 08/14 - found a lot of scar tissue, cleaned it out, but no improvement after surgery Interesting history- new onset sob, had Echo and found to have trace mitral and tricuspid and trace pulmonic regurgitation. appt with cardiology at end of February Evaluated by DR Case ([facility]) in 2020 no rheum issue found and told to ''lose weight'' +back pain - new onset. Episodic- severe back pain for a few days No rash, ulcers, fevers, swollen lymph nodes, DVT/PE, raynauds, sicca symptoms, trouble swallowing, red eyes, Chron's/UC or Psoriasis. MEDS/THERAPIES TRIED: NSAIDS mobic- did not help Prednisone- did not help and severe side effects ''nothing has helped'' TYPICAL DAY: in school and working, no regular exercise REVIEW OF SYSTEMS GENERAL: No weight loss, malaise or fevers., SEE HPI HEENT: Negative for frequent or significant headaches, No changes in hearing or vision, no nose bleeds or other nasal problems RESPIRATORY: Negative for cough, wheezing. New onset sob CARDIOVASCULAR: + for chest pain,No leg swelling or palpitations. GI: Negative for abdominal discomfort, blood in stools or black stools or change in bowel habits MUSCULOSKELETAL :see HPI SKIN: Negative for lesions, rash, and itching. PSYCH: Negative for sleep disturbance, mood disorder and recent psychosocial stressors. NEURO: No history of headaches, syncope, paralysis, seizures or tremors All other reviewed and negative other than HPI. PMH None PSH Rt knee arthroscopy Medicine prednisoLONE (MILLIPRED DP) 5 mg (21 tabs) DsPk Take 5 mg by mouth once daily. FH Thinks father has RA Social History Tobacco Use Smoking status: Not on file Smokeless tobacco: Not on file Substance Use Topics Alcohol use: Not on file Drug use: Not on file BP 116/83 Pulse 71 Ht 165.1 cm (5' 5 ) Wt 86.4 kg (190 lb 6.4 oz) BMI 31.68 kg/m PE; Pleasant mood. No acute distress. Examination of the skin: She has no rashes, ulcers, nodules or tightening of the skin. Eyes: Pupils are equal in size and reactive to light. Conjunctivae are noninjected. Sclerae are anicteric. Ears, Nose, Mouth and Throat: Nasal mucosa and septum appear normal. Teeth and gums appear normal. Oropharynx is clear of erythema and exudate. Hearing is grossly normal. Neck: Supple. There is no JVD. Trachea is in the midline. There are no palpable lymph nodes or scars. Musculoskeletal: LABS AND XRAYS; IMP/PLAN: 21 yr female with c/o ''inflammation of rt knee'' which started in 11/14, no trauma prior Has seen Derm, Ortho and vascular and no reason found for the inflammation. Rt knee becomes red hot and swollen, mostly every day after standing for 20minutes. lft knee has similar complaints. After standing now for >20 minutes both knees become red and hot. They become painful as well Now similar complaints of toes as well. Not much pain in feet Symptoms resolve after sitting. No pain currently as she is sitting. No other pain in joints Ortho did MRI of rt knee- thought there was a torn meniscus so had arthroscopic surgery on 08/14 - found a lot of scar tissue, cleaned it out, but no improvement after surgery Interesting history- new onset sob, had Echo and found to have trace mitral and tricuspid and trace pulmonic regurgitation. appt with cardiology at end of February Evaluated by DR Case ([facility]) in 2020 no rheum issue found and told to ''lose weight'' +back pain - new onset. Episodic- severe back pain for a few days No rash, ulcers, fevers, swollen lymph nodes, DVT/PE, raynauds, sicca symptoms, trouble swallowing, red eyes, Chron's/UC or Psoriasis. On exam ambulates well, very pleasant mood No pain on palpation of any joints No swelling or warmth or pain of any joints noted on exam today Discussed iwht patient as follows- Regarding acute onset of swelling, redness and pain in rt knee, later left knee and now bilateral toes which only occcurs after standing >20minutes- DD include early inflammatory arthritis vs mechanical -patient has tried nsaids, steroids with no relief -has seen ortho, had orthoscopic surgery of rt knee without much improvement -has seen derm, had skin biopsy but no diagnosis given -has seen rheum in past, no diagnosis givne, told to lose weight per patient. -will check labs today - obtain MRI of rt knee done with ortho -consider plaquenil in future for ? Palindromic RA. Strong FH of RA in father -check for C1 esterase inhibitor- no reports of angioedema but knee pain and swelling associated with erythematous haile rash on joints Consultation requested by Dr. Jose Armando Schmid for an opinion regarding inflammation of joints. My final recommendations will be communicated back to the requesting physician by way of shared Medical record or letter to requesting physician via US mail. 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 She does not have physical findings for significant venous insufficiency. She has a normal arterial examination. She does not describe clear episodes of rainouts type phenomenon and the pictures that she shows are really more hyperemic. We will see her back on an as-needed basis. She will go ahead with her evaluation in [facility]. [employer] Other 01-17-2022 Evaluation note* Encounter Date Diagnosis Assessment Notes Treatment Notes Treatment Clinical Notes Sep, Acute left ankle pain (ICD-10 - M25.572) Sep, Sprain of left ankle, unspecified ligament, initial encounter (ICD-10 - S93.402A) Wear the Jaxon wrap for comfort and compression. Use the crutches for ambulation for the next 2 to 3 days. Ice and elevate your ankle is much as possible for the next 2 to 3 days. Follow-up with your family physician if no improvement in 5 to 7 days. Take ibuprofen, 600 to 800 mg with food up to 3 times a day as needed for pain and swelling. [employer] Other 07-01-2021 History of Present illness Narrative* She is referred here by Dr. Alcaraz for electrophysiology evaluation of syncope * The patient is here to discuss spells and possible need for placement of pacemaker. * She has had 3 episodes of syncope in March 2021, July 2021, and October 2021. * 1 episode occurred after she had gotten up at 6:30 in the morning in the RV to go to the bathroom. She felt a little funny as she was getting ready to wash her hands and then she found her self down on the bathroom floor. She reports being panic as she found her self on the floor. She cannot recall any other symptoms. * Second episode occurred when she was walking up the stairs. * The third episode occurred on postop day #0 after she had knee surgery for knee pain. Findings fromsurgery were scar tissue per her report * She can feel dizzy, hot, or lightheaded if she stands for long period of time * She was treated with atenolol which was increased up to 50 mg daily and she had dizziness. It was subsequently decreased down to 12.5 mg daily. Midodrine was initiated * She has had chest tightness and shortness of breath. Episodes can last for several minutes. 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 She typically works from 4 PM to 10 PM. 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 * The patient denies any dyspnea at rest, wheezing, or edema. * See ROS, PMH, FMH, and surgical history for details. * She was born 1 month premature and left hospital on time. * She has a twin brother who has a heart murmur and has been transferred to [facility] * There is no family history of SIDS, sudden cardiac , long QT, pacemaker, defibrillator, or drowning. * Past medical history of COVID in August 2021 * Acute on chronic knee pain with scar tissue found at time of surgery. * She inquires what is an incomplete right bundle branch block. We discussed what is normal conduction in but ECG patterns show. * Personal review of ECG and cardiac data reviewed * Outside records: * Tilt test May 2022. Vasodepressor and cardioinhibitory response. * Blood pressure 113/72, heart rate 69 bpm, sinus rhythm. At 6 months after nitroglycerin, patient was symptomatic with hot feeling then residual syncope. Blood pressure initially not able to be recorded. Heart rate 34 bpm, sinus bradycardia. * Echocardiogram with normal LVEF in April 2022 * Stress echocardiogram April 2022 with no mitral regurgitation or LV outflow tract obstruction. Exercised for 12 minutes and achieved 98% of age-predicted maximal heart rate * Pulmonary function tests April 2022 FEV1 / FVC 69% * ECG: November 2021. Normal sinus rhythm. Normal axis. Corrected QT interval 420 ms. 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 Abnormal tilt table test with vasodepressor and cardioinhibitory responses. Syncope brochure reviewed with patient. Findings of echocardiogram and tilt table test reviewed in detail. Mechanism syncope also reviewed. We discussed her medications and updated the medication list, including intolerance to Florinef, as these are different from previous discussion with Dr. Alcaraz. Behavior modifications discussed. Compression stockings prescribed. Increase fluid and salt intake. Discontinue atenolol. Increase midodrine to 10 mg 3 times daily. New prescription sent. Consider Northera in the future. * Order 30-day monitor and reassess rhythm with symptoms and heart rate variability. * Asthma. Previously tolerated beta-quentin. * No family history of sudden cardiac , SIDS, drowning, or long QT * Overweight. * AHA recommendations for exercise, diet, and behavioral modification reviewed with pt. * The patient and I discussed the mechanism of arrhythmia, syncope, syncope brochure, heart rate, ECG, echocardiogram results, office notes, what is normal conduction and heart diagram, indications forand types of medications, discussion if and what medication refills needed, treatment options, risks, benefits, and imponderables. [place] [employer] lifestyle changes and behavioral modification discussed. All questions answered in detail. Counseling over 50% visit regarding above. Patientappreciative of care. * At the end the office visit, she did report that she will be seeing an compliance review specialist in [place]. We did discuss that she could hold off on any recommendations that I recommended and wait for her evaluation with him. I also offered that we can hold off ordering 30-day monitor and follow-up with me in the future until she has been evaluated for second opinion. She opts to proceed with medication adjustments, testing, and follow-up with me as outlined above. * Grammar * Please excuse grammatical or dictation errors as software dictation application being used. -[facility] DO Work Phone: [phone] History of Present illness Narrative* She is a 21-year-old female being seen in cardiology consultation at the request of Ibis Colbert NP, for bouts of severe shortness of breath. She says that over the past couple of years she has had these episodes that would come sporadically and very infrequently. In the last several months the episodes are much more frequent. She cannot relate any precipitating factor such as exposure to extreme heat or humidity, recognized emotional distress, food, environmental pollutants, it never occurs at night, it is not related to activity or meals. * No symptoms of GERD no difficulty swallowing no fever chills cough or postnasal drip. * She never smoked, but has been exposed to secondhand smoke from her mother. * She is a 21-year-old female being seen in cardiology consultation at the request of Ibis Colbert NP, for bouts of severe shortness of breath. She says that over the past couple of years she has had these episodes that would come sporadically and very infrequently. In the last several months the episodes are much more frequent. She cannot relate any precipitating factor such as exposure to extreme heat or humidity, recognized emotional distress, food, environmental pollutants, it never occurs at night, it is not related to activity or meals. * No symptoms of GERD no difficulty swallowing no fever chills cough or postnasal drip. * She never smoked, but has been exposed to secondhand smoke from her mother. -[facility] DO Work Phone: [phone] History of Present illness Narrative* Patient is new to this provider. She is a 21-year-old female being seen in cardiology consultation at the request of Ibis Colbert NP, for bouts of severe shortness of breath. She says that over the past couple of years she has had these episodes that would come sporadically and very infrequently. In the last several months the episodes are much more frequent. She cannot relate any precipitating factor such as exposure to extreme heat or humidity, recognized emotional distress, food, environmental pollutants, it never occurs at night, it is not related to activity or meals. * No symptoms of GERD no difficulty swallowing no fever chills cough or postnasal drip. * She never smoked, but has been exposed to secondhand smoke from her mother. 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 Last week the episode was very severe, she was with her boyfriend, she was standing, she was at her boyfriend's house, the difficulty breathing, feeling of difficulty with aeration of the lungs was so intense that she started crying. Her boyfriend calmed her down. Without that she believes she would have started hyperventilating. The episode lasted about 15 minutes. It was around 6 PM, the weather was actually a little chilly, after the episode she felt cold. * She works nights usually 4 PM to 10 PM. * She was a twin at , she was 1 month premature, weight 5 pounds 4 ounces, she left hospital on time, her [facility], and has history of heart murmur. * Patient herself had COVID in August 2021, no hospitalization no pneumonia. * She is currently on control pills, no history of DVT or pulmonary embolism. * Her BMI is excessive. * She is dealing with some issues with her knee, and of late has been reluctant to increase her activity level. * Apparently she recently stopped hydroxychloroquine-I do not know the indication for this medication. Rheumatology advised the discontinuation. * Review of systems is negative or noncontributory except as noted above. In addition no history of dysphagia, no history of any sensation of food getting stuck in the throat. No an anticipated weight loss or weight gain, she has been maintaining her weight. No stridor no audible wheezing. * Review of systems is also noticeable for palpitations, and a sensation that the heart rate tends torun low. The low heart rate is frequently picked up on her watch. * Evaluation so far has included an echocardiogram 01/14/2022 at which time her RVSP was estimated to be 25 mmHg left atrial volume index 15.4 mL/m TAPSE 24mm, LV ejection fraction 55 to 60% normal wallmotion no pericardial effusion normal inferior vena cava size valves grossly normal. * EKG shows normal sinus rhythm normal axis normal intervals. * 48-hour Holter monitor showed isolated ventricular and supraventricular premature beats, minimum heart rate was in the 40s. Patient apparently had several symptoms of palpitations and shortness of breath which did not correspond to any dysrhythmia. * On physical examination she is quite concerned about her symptoms, she is alert oriented x3 does not appear particularly anxious, she is grossly nonfocal on neurological exam. Her thyroid gland seemssmooth and prominent, no bruit appreciated over the neck or thyroid gland. No jugular venous distent ion carotid bruit or scleral icterus or facial asymmetry. Lungs are clear no chest wall deformity heart sounds are regular without murmur rub or gallop abdomen is soft and nontender extremities show no edema distal pulses are strong to palpation. Skin shows no petechia or rash. * Assessment: * 1. Patient is new to provider * 2. Increasing episodes of sudden onset of severe shortness of breath sometimes preceded by chest tightness-etiology is unclear, frequency is increasing, duration is also increasing * 3. Palpitations, with positive findings on Holter monitor * 4. Structurally normal heart with functionally normal valves and structurally normal valves, RVSP estimated at 25 mmHg at rest. * 5. Increased BMI * 6.I do not have any laboratory data available on her. * 7.Pt is on control pills. * Recommendations: * 1. Stress echocardiogram, would like to assess functional capacity heart rate and blood pressure response to exercise, oxygen saturation at baseline and with activity, and also PA pressure at rest and at peak exercise. * 2. Chest x-ray PA and lateral * 3. proBNP comprehensive profile free T4 TSH, sed rate and D-dimer in the near future. * 4. May need to get a pulmonary evaluation, defer to primary service * 5. As a diagnosis of exclusion, anxiety can be considered. * Thank you for allowing me to participate in patient's care, please not hesitate to call if further questions arise, * Sincerely, * Melodie alcaraz MD [facility] Work Phone: [phone] History of Present illness Narrative* Patient is new to this provider. She is a 21-year-old female being seen in cardiology consultation at the request of Ibis Colbert NP, for bouts of severe shortness of breath. She says that over the past couple of years she has had these episodes that would come sporadically and very infrequently. In the last several months the episodes are much more frequent. She cannot relate any precipitating factor such as exposure to extreme heat or humidity, recognized emotional distress, food, environmental pollutants, it never occurs at night, it is not related to activity or meals. * No symptoms of GERD no difficulty swallowing no fever chills cough or postnasal drip. * She never smoked, but has been exposed to secondhand smoke from her mother. 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 Last week the episode was very severe, she was with her boyfriend, she was standing, she was at her boyfriend's house, the difficulty breathing, feeling of difficulty with aeration of the lungs was so intense that she started crying. Her boyfriend calmed her down. Without that she believes she would have started hyperventilating. The episode lasted about 15 minutes. It was around 6 PM, the weather was actually a little chilly, after the episode she felt cold. * She works nights usually 4 PM to 10 PM. * She was a twin at , she was 1 month premature, weight 5 pounds 4 ounces, she left hospital on time, her twin brother had to be taken to [facility], and has history of heart murmur. * Patient herself had COVID in August 2021, no hospitalization no pneumonia. * She is currently on control pills, no history of DVT or pulmonary embolism. * Her BMI is excessive. * She is dealing with some issues with her knee, and of late has been reluctant to increase her activity level. * Apparently she recently stopped hydroxychloroquine-I do not know the indication for this medication. Rheumatology advised the discontinuation. * Review of systems is negative or noncontributory except as noted above. In addition no history of dysphagia, no history of any sensation of food getting stuck in the throat. No an anticipated weight loss or weight gain, she has been maintaining her weight. No stridor no audible wheezing. * Review of systems is also noticeable for palpitations, and a sensation that the heart rate tends torun low. The low heart rate is frequently picked up on her watch. * Evaluation so far has included an echocardiogram 01/14/2022 at which time her RVSP was estimated to be 25 mmHg left atrial volume index 15.4 mL/m TAPSE 24mm, LV ejection fraction 55 to 60% normal wallmotion no pericardial effusion normal inferior vena cava size valves grossly normal. * EKG shows normal sinus rhythm normal axis normal intervals. * 48-hour Holter monitor showed isolated ventricular and supraventricular premature beats, minimum heart rate was in the 40s. Patient apparently had several symptoms of palpitations and shortness of breath which did not correspond to any dysrhythmia. * On physical examination she is quite concerned about her symptoms, she is alert oriented x3 does not appear particularly anxious, she is grossly nonfocal on neurological exam. Her thyroid gland seemssmooth and prominent, no bruit appreciated over the neck or thyroid gland. No jugular venous distent ion carotid bruit or scleral icterus or facial asymmetry. Lungs are clear no chest wall deformity heart sounds are regular without murmur rub or gallop abdomen is soft and nontender extremities show no edema distal pulses are strong to palpation. Skin shows no petechia or rash. * Assessment: * 1. Patient is new to provider * 2. Increasing episodes of sudden onset of severe shortness of breath sometimes preceded by chest tightness-etiology is unclear, frequency is increasing, duration is also increasing * 3. Palpitations, with positive findings on Holter monitor * 4. Structurally normal heart with functionally normal valves and structurally normal valves, RVSP estimated at 25 mmHg at rest. * 5. Increased BMI * 6.I do not have any laboratory data available on her. * 7.Pt is on control pills. * Recommendations: * 1. Stress echocardiogram, would like to assess functional capacity heart rate and blood pressure response to exercise, oxygen saturation at baseline and with activity, and also PA pressure at rest and at peak exercise. * 2. Chest x-ray PA and lateral * 3. proBNP comprehensive profile free T4 TSH, sed rate and D-dimer in the near future. * 4. May need to get a pulmonary evaluation, defer to primary service * 5. As a diagnosis of exclusion, anxiety can be considered. * Thank you for allowing me to participate in patient's care, please not hesitate to call if further questions arise, * Sincerely, * Melodie alcaarz MD [facility] [address] DO Work Phone: [phone] History of Present illness Narrative* Patient is new to this provider. She is a 21-year-old female being seen in cardiology consultation at the request of Ibis Colbert NP, for bouts of severe shortness of breath. She says that over the past couple of years she has had these episodes that would come sporadically and very infrequently. In the last several months the episodes are much more frequent. She cannot relate any precipitating factor such as exposure to extreme heat or humidity, recognized emotional distress, food, environmental pollutants, it never occurs at night, it is not related to activity or meals. * No symptoms of GERD no difficulty swallowing no fever chills cough or postnasal drip. * She never smoked, but has been exposed to secondhand smoke from her mother. 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 Last week the episode was very severe, she was with her boyfriend, she was standing, she was at her boyfriend's house, the difficulty breathing, feeling of difficulty with aeration of the lungs was so intense that she started crying. Her boyfriend calmed her down. Without that she believes she would have started hyperventilating. The episode lasted about 15 minutes. It was around 6 PM, the weather was actually a little chilly, after the episode she felt cold. * She works nights usually 4 PM to 10 PM. * She was a twin at , she was 1 month premature, weight 5 pounds 4 ounces, she left hospital on time, her twin brother had to be taken to [facility], and has history of heart murmur. * Patient herself had COVID in August 2021, no hospitalization no pneumonia. * She is currently on control pills, no history of DVT or pulmonary embolism. * Her BMI is excessive. * She is dealing with some issues with her knee, and of late has been reluctant to increase her activity level. * Apparently she recently stopped hydroxychloroquine-I do not know the indication for this medication. Rheumatology advised the discontinuation. * Review of systems is negative or noncontributory except as noted above. In addition no history of dysphagia, no history of any sensation of food getting stuck in the throat. No an anticipated weight loss or weight gain, she has been maintaining her weight. No stridor no audible wheezing. * Review of systems is also noticeable for palpitations, and a sensation that the heart rate tends torun low. The low heart rate is frequently picked up on her watch. * Evaluation so far has included an echocardiogram 01/14/2022 at which time her RVSP was estimated to be 25 mmHg left atrial volume index 15.4 mL/m TAPSE 24mm, LV ejection fraction 55 to 60% normal wallmotion no pericardial effusion normal inferior vena cava size valves grossly normal. * EKG shows normal sinus rhythm normal axis normal intervals. * 48-hour Holter monitor showed isolated ventricular and supraventricular premature beats, minimum heart rate was in the 40s. Patient apparently had several symptoms of palpitations and shortness of breath which did not correspond to any dysrhythmia. * On physical examination she is quite concerned about her symptoms, she is alert oriented x3 does not appear particularly anxious, she is grossly nonfocal on neurological exam. Her thyroid gland seemssmooth and prominent, no bruit appreciated over the neck or thyroid gland. No jugular venous distent ion carotid bruit or scleral icterus or facial asymmetry. Lungs are clear no chest wall deformity heart sounds are regular without murmur rub or gallop abdomen is soft and nontender extremities show no edema distal pulses are strong to palpation. Skin shows no petechia or rash. * Assessment: * 1. Patient is new to provider * 2. Increasing episodes of sudden onset of severe shortness of breath sometimes preceded by chest tightness-etiology is unclear, frequency is increasing, duration is also increasing * 3. Palpitations, with positive findings on Holter monitor * 4. Structurally normal heart with functionally normal valves and structurally normal valves, RVSP estimated at 25 mmHg at rest. * 5. Increased BMI * 6.I do not have any laboratory data available on her. * 7.Pt is on control pills. * Recommendations: * 1. Stress echocardiogram, would like to assess functional capacity heart rate and blood pressure response to exercise, oxygen saturation at baseline and with activity, and also PA pressure at rest and at peak exercise. * 2. Chest x-ray PA and lateral * 3. proBNP comprehensive profile free T4 TSH, sed rate and D-dimer in the near future. * 4. May need to get a pulmonary evaluation, defer to primary service * 5. As a diagnosis of exclusion, anxiety can be considered. * Thank you for allowing me to participate in patient's care, please not hesitate to call if further questions arise, * Sincerely, * Melodie alcaraz MD [facility] [employer] DO Work Phone: [phone] History general Narrative - Reported* Type Description Date Medical History general health good Surgical History tonsillectomy and adenoidectomy 09/2007 [employer] Other 01-01-2008 History general Narrative - Reported* Type Description Date Medical History general health good Surgical History tonsillectomy and adenoidectomy 09/2007 Surgical History right knee cleaned up scar tiss ue 2020 [employer] Other [place] complaint Narrative - ReportedMADYSON SCHMID is being seen for a cardiovascular evaluation of abnormal test(s) results and dyspnea.[facility] [address] DO Work Phone: [place] complaint Narrative - ReportedMADYSON SCHMID is being seen for a cardiovascular evaluation of abnormal test(s) results and dyspnea.[facility] Work Phone: Evaluation + Plan note No data available for this section [facility]* Diagnosis Pain and swelling of knee, right- Primary Joint stiffness Stiffness of joint, not elsewhere classified, unspecified site [facility] information availableC[facility] Work Phone: Evaluation note* Diagnosis Pain and swelling of knee, right- Primary Joint stiffness Stiffness of joint, not elsewhere classified, unspecified site Inflammatory arthritis Unspecified inflammatory polyarthropathy [facility] Diagnosis Pain and swelling of knee, right- Primary Joint stiffness Stiffness of joint, not elsewhere classified, unspecified site [facility] Diagnosis Right knee pain, unspecified chronicity- Primary [facility] Diagnosis Chronic pain of right knee- Primary Tendinopathy of gluteal region Unspecified disorder of synovium, tendon, and bursa [facility]* Diagnosis Orthostatic lightheadedness- Primary Dizziness and giddiness [facility]* Diagnosis POTS (postural orthostatic tachycardia syndrome)- Primary Tachycardia, unspecified [facility] Diagnosis POTS (postural orthostatic tachycardia syndrome)- Primary Tachycardia, unspecified documented [facility] encounter [facility]* The patient is here for EP followup. * She feels better. * She hasn't filled Droxidopa yet as she's waiting for transfer to specialty clinic. * She is not wearing compression stockings. * The patient denies any near syncope, dizziness, syncope, dyspnea at rest, wheezing, or edema. * See ROS, PMH, FMH, and surgical history for details. * She was born 1 month premature and left hospital on time. * She has a twin brother who has a heart murmur and had been transferred to [facility] * There is no change in family history. There is no family history of SIDS, sudden cardiac , long QT, pacemaker, defibrillator, or drowning. * Past medical history of COVID in August 2021 * Acute on chronic knee pain with scar tissue found at time of surgery. * Personal review of ECG and cardiac data reviewed * Outside records: * Report per patient that she saw Dr. Muñiz at [facility] for second opinion regarding neurally mediated syncope and near syncope. He agreed with evaluation and management and patient opted to follow-up here at [facility] in [place]. * Zio patch August 2022. All rhythms sinus rhythm or sinus rhythm with isolated PACs or sinus tachycardia with triggered events. Less than 1% PACs. Less than 1% PVCs. No clinically significant rhythm * OV with me June 2022 * Tilt test May 2022. Vasodepressor and cardioinhibitory response. * Blood pressure 113/72, heart rate 69 bpm, sinus rhythm. At 6 months after nitroglycerin, patient was symptomatic with hot feeling then residual syncope. Blood pressure initially not able to be recorded. Heart rate 34 bpm, sinus bradycardia. * Echocardiogram with normal LVEF in April 2022 * Stress echocardiogram April 2022 with no mitral regurgitation or LV outflow tract obstruction. Exercised for 12 minutes and achieved 98% of age-predicted maximal heart rate * Pulmonary function tests April 2022 FEV1 / FVC 69% * ECG: November 2021. Normal sinus rhythm. Normal axis. Corrected QT interval 420 ms. 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 Abnormal tilt table test with vasodepressor and cardioinhibitory responses. Negative event monitor. Continue medications. Awaiting specialty pharmacy for filling droxidopa. Patient reports that initially his medication was denied by insurance. * Order 30-day monitor and reassess rhythm with symptoms and heart rate variability. * Asthma. Previously tolerated beta-quentin. * No family history of sudden cardiac , SIDS, drowning, or long QT * Overweight. * AHA recommendations for exercise, diet, and behavioral modification reviewed with pt. * The patient and I discussed the mechanism of arrhythmia, event monitor, syncope, syncope brochure, heart rate, ECG, echocardiogram results, indications for and types of medications, discussion if andwhat medication refills needed, treatment options, risks, benefits, and imponderables. [place] [employer] lifestyle changes and behavioral modification discussed. All questions answered in detail. Counseling over 50% visit regarding above. Patient appreciative of care. * Grammar * Please excuse grammatical or dictation errors as software dictation application being used. -[facility] [address] DO Work Phone: History of Present illness Narrative* The patient states she has been generally stable since the last visit. * Symptoms: denies chest pain at rest, denies exertional chest pain, denies dyspnea, stable fatigue, denies exercise intolerance, stable palpitations, denies edema, denies orthopnea, stable dizziness and stable orthostatic dizziness. * Disease Monitoring: [facility] [address] DO Work Phone: Hospital Discharge instructions No data available for this section [facility] note No data available for this section [facility] for referral (narrative)* Diagnostic Procedure Only (Routine) - Pending Review Specialty Diagnoses / Procedures Referred By Contac t Referred To Contact XR IMAGING Diagnoses Right knee pain, unspecified chronicity Procedures XR KNEE GENERAL 4V AP BOTH/PA BOTH/LAT/MERC RIGHT RADIOLOGIC EXAM KNEE COMPLETE 4/[place] [address] [place] [address] [place] [address] Referral ID Status Reason Start Date Expiration Date Visits Requested Visits Authorized [id number] Pending Review Auto-Generat ed Referral 3 08/04/2024 1 1 [facility] for visit Narrativerash knee referral from Cj Jaimes, She gets a funny rash on her knee and toesNorth Tolerx Other Summary Purpose Family History No Family History Records FoundUnknown Family Member Name Dates Details Family history of hypertensi on: Brother(V17.49, Z82.49) Status:Active Family history of heart murm ur: Brother(V17.49, Z82.49) Status:Active Unknown Family Member Name Dates Details Family history of hypertensi on: Brother(V17.49, Z82.49) Status:Active Family history of heart murm ur: Brother(V17.49, Z82.49) Status:Active Unknown Family Member Name Dates Details Family history of hypertensi on: Brother(V17.49, Z82.49) Status:Active Family history of heart murm ur: Brother(V17.49, Z82.49) Status:Active Unknown Family Member Name Dates Details Family history of heart murm ur: Brother(V17.49, Z82.49) Status:Active Family history of hypertensi on: Brother(V17.49, Z82.49) Status:Active Unknown Family Member Name Dates Details Family history of hypertensi on: Brother(V17.49, Z82.49) Status:Active Family history of heart murm ur: Brother(V17.49, Z82.49) Status:Active Unknown Family Member Name Dates Details Family history of hypertensi on: Brother(V17.49, Z82.49) Status:Active Family history of heart murm ur: Brother(V17.49, Z82.49) Status:Active Unknown Family Member Name Dates Details Family history of hypertensi on: Brother(V17.49, Z82.49) Status:Active Family history of heart murm ur: Brother(V17.49, Z82.49) Status:Active Unknown Family Member Name Dates Details Family history of hypertensi on: Brother(V17.49, Z82.49) Status:Active Family history of heart murm ur: Brother(V17.49, Z82.49) Status:Active Unknown Family Member Name Dates Details Family history of hypertensi on: Brother(V17.49, Z82.49) Status:Active Family history of heart murm ur: Brother(V17.49, Z82.49) Status:Active Unknown Family Member Name Dates Details Family history of hypertensi on: Brother(V17.49, Z82.49) Status:Active Family history of heart murm ur: Brother(V17.49, Z82.49) Status:Active Unknown Family Member Name Dates Details Family history of hypertensi on: Brother(V17.49, Z82.49) Status:Active Family history of heart murm ur: Brother(V17.49, Z82.49) Status:Active Unknown Family Member Name Dates Details Family history of hypertensi on: Brother(V17.49, Z82.49) Status:Active Family history of heart murm ur: Brother(V17.49, Z82.49) Status:Active Unknown Family Member Name Dates Details Family history of hypertensi on: Brother(V17.49, Z82.49) Status:Active Family history of heart murm ur: Brother(V17.49, Z82.49) Status:Active Unknown Family Member Name Dates Details Family history of hypertensi on: Brother(V17.49, Z82.49) Status:Active Family history of heart murm ur: Brother(V17.49, Z82.49) Status:Active Unknown Family Member Name Dates Details Family history of hypertensi on: Brother(V17.49, Z82.49) Status:Active Family history of heart murm ur: Brother(V17.49, Z82.49) Status:Active Unknown Family Member Name Dates Details Family history of hypertensi on: Brother(V17.49, Z82.49) Status:Active Family history of heart murm ur: Brother(V17.49, Z82.49) Status:Active Unknown Family Member Name Dates Details Family history of hypertensi on: Brother(V17.49, Z82.49) Status:Active Family history of heart murm ur: Brother(V17.49, Z82.49) Status:Active Unknown Family Member Name Dates Details Family history of hypertensi on: Brother(V17.49, Z82.49) Status:Active Family history of heart murm ur: Brother(V17.49, Z82.49) Status:Active Unknown Family Member Name Dates Details Family history of hypertensi on: Brother(V17.49, Z82.49) Status:Active Family history of heart murm ur: Brother(V17.49, Z82.49) Status:Active Unknown Family Member Name Dates Details Family history of hypertensi on: Brother(V17.49, Z82.49) Status:Active Family history of heart murm ur: Brother(V17.49, Z82.49) Status:Active Unknown Family Member Name Dates Details Family history of hypertensi on: Brother(V17.49, Z82.49) Status:Active Family history of heart murm ur: Brother(V17.49, Z82.49) Status:Active Unknown Family Member Name Dates Details Family history of hypertensi on: Brother(V17.49, Z82.49) Status:Active Family history of heart murm ur: Brother(V17.49, Z82.49) Status:Active Unknown Family Member Name Dates Details Family history of heart murm ur: Brother(V17.49, Z82.49) Status:Active Family history of hypertensi on: Brother(V17.49, Z82.49) Status:Active Unknown Family Member Name Dates Details Family history of heart murm ur: Brother(V17.49, Z82.49) Status:Active Family history of hypertensi on: Brother(V17.49, Z82.49) Status:Active Unknown Family Member Name Dates Details Family history of hypertensi on: Brother(V17.49, Z82.49) Status:Active Family history of heart murm ur: Brother(V17.49, Z82.49) Status:Active Unknown Family Member Name Dates Details Family history of hypertensi on: Brother(V17.49, Z82.49) Status:Active Family history of heart murm ur: Brother(V17.49, Z82.49) Status:Active Advance Directives No Advanced Directives Records Found Advance Directive Response Recorded Date/ Time Advance Directives No July 1:28pm Chief Complaint f/u testing.f/u testing.f/u testing.Abnormal Tilt and syncopeAbnormal Tilt and syncopeMADYSON SCHMID is being seen for a 2 month follow-up of.patient here to discuss Zio patch results Has not started the Droxidopa yet due to insurance patient here to discuss Zio patch results Has not started the Droxidopa yet due to insurance* ER f/u: 'have questions about my testing' * MADYSON SCHMID is being seen for chest pain and dyspnea. * Patient presents to the office ambulatory with steady gait. Last evaluated in clinic Dr. Alcaraz August 2022. At that time, she was to continue management with EP service. She was seen by Dr. Maza September 2022 and began treatment with Northera 100 mg 3 days daily for very brief period of time. She reports it was not helping and she discontinued the medication. * May 2023 presented to local emergency department due to chest pain and not being able to breathe . Symptoms seem most consistent with panic attack although she denies. She was significantly concerned regarding her heart rate on her Apple Watch in the 40s. EKG in ER sinus rhythm at 66. * She is an extremely pleasant 22-year-old female who is teary-eyed in the office regarding her heartrate. She watches her heart rate on her Apple Watch almost consistently. We reviewed in detail the March 2022 30 day ROSA, Jul 2022 ZIO monitor and Aug 2022 ROSA. At some point she was under the impression she should have an implantable loop recorder or maybe even a pacemaker. Discussed heart rates inupper 40s that are not causing symptoms is a benign finding as long as it is sinus rhythm. She doesnot need a pacemaker or implantable loop recorder. * May 2022 Tilt table + vasodepressor/cardioinhibitory. Had one syncopal episode during lab draw. She self discontinued northera, does not utilize compression stockings. Keeps well hydrated and changes positions slowly. * She has appointment at [facility] to see autonomic specialists. She also had consult with [facility] EP without treatment changes or recommendations for loop recorder. * At times when she notices low heart rate she has palpitations that seem most consistent with PVCs. Discussed pseudo bradycardia and addition of magnesium oxide to assist with symptoms. Otherwise, limit caffeine and alcohol intake. Her presenting complaints to local emergency department were more consistent with panic attack, no indication for ischemic work-up. * No additional testing here locally. Await recommendations from autonomic specialist. Chief Complaint and Reason for Visit Chief Complaint R06.00 R07.89 R00.2 Z86.16 I49.3 chest pain dyspnea Shortness of Breath Shortness of Breath Chief Complaint R06.00 R07.89 R00.2 Z86.16 I49.3 chest pain dyspnea Shortness of Breath Shortness of Breath muscle pain,sore throat Chief Complaint Chest X-ray Chief Complaint PRE EMPLOY LABS Chief Complaint low bp high hr flu vaccine Additional Source Comments Source Comments (unrecognize d section and content) In the event this informatio n is protected by the Federal Confidentiality of Alcohol and Drug Abuse Patient Records regulations: The Federal rules restrict any use of the information to criminally investigate or prosecute any alcohol or drug abuse patient.[facility]test[facility] HospitalIn the event this information is protected by the Federal Confidentiality of Alcohol and Drug Abuse Patient Records regulations: The Federal rules restrict any use of the information to criminally investigate or prosecute any alcohol or drug abuse patient.[facility] the event this information is protected by the Federal Confidentiality of Alcohol and Drug Abuse Patient Records regulations: The Federal rules restrict any use of the information to criminally investigate or prosecute any alcohol or drug abuse patient.[facility] HospitalIn the event this information is protected by the Federal Confidentiality of Alcohol and Drug Abuse Patient Records regulations: The Federal rules restrict any use of the information to criminally investigate or prosecute any alcohol or drug abuse patient.[facility] HospitalIn the event this information is protected by the Federal Confidentiality of Alcohol and Drug Abuse Patient Records regulations: The Federal rules restrict any use of the information to criminally investigate or prosecute any alcohol or drug abuse patient.[facility] HospitalIn the event this information is protected by the Federal Confidentiality of Alcohol and Drug Abuse Patient Records regulations: The Federal rules restrict any use of the information to criminally investigate or prosecute any alcohol or drug abuse patient.[facility] HospitalIn the event this information is protected by the Federal Confidentiality of Alcohol and Drug Abuse Patient Records regulations: The Federal rules restrict any use of the information to criminally investigate or prosecute any alcohol or drug abuse patient.[facility] HospitalIn the event this information is protected by the Federal Confidentiality of Alcohol and Drug Abuse Patient Records regulations: The Federal rules restrict any use of the information to criminally investigate or prosecute any alcohol or drug abuse patient.[facility] HospitalIn the event this information is protected by the Federal Confidentiality of Alcohol and Drug Abuse Patient Records regulations: The Federal rules restrict any use of the information to criminally investigate or prosecute any alcohol or drug abuse patient.[facility] Reason for Visit (unrecogniz ed section and content) Reason Comments New Patient Reason Comments Orders Reason Comments Follow Up Reason Comments 4 Month Follow Up Reason Onset Date Comments Referral Follow-up 07/20/2023 Reason Comments Procedure Reason Comments New Patient Consult Reason Comments Follow Up INFORMATION SOURCE (unrecogn ized section and content) DATE CREATED AUTHOR 02/03/2022 [facility] DATE CREATED AUTHOR AUTHOR'S ORGANIZ ATION 06/24/2022 [facility] DATE CREATED AUTHOR AUTHOR'S ORGANIZ ATION 09/15/2022 [facility] DATE CREATED AUTHOR AUTHOR'S ORGANIZ ATION 03/16/[address] [facility] DATE CREATED AUTHOR AUTHOR'S ORGANIZ ATION 06/15/2023 [facility] DATE CREATED AUTHOR AUTHOR'S ORGANIZ ATION 07/11/2023 [facility] DATE CREATED AUTHOR AUTHOR'S ORGANIZ ATION 07/28/2023 [facility] DATE CREATED AUTHOR AUTHOR'S ORGANIZ ATION [facility]/15/2024 [facility] DATE CREATED AUTHOR AUTHOR'S ORGANIZ ATION 03/22/2024 [facility] DATE CREATED AUTHOR AUTHOR'S ORGANIZ ATION 04/15/2024 [facility] DATE CREATED AUTHOR AUTHOR'S ORGANIZ ATION 05/22/2024 [facility] [employer] Care Teams (unrecognized sec tion and content) Team Status: Inactive Member Role Status Dates Ibis Renteria NP-C Primary Care Provider Activ e Guerita Davidson NP-C Attending Provider Active Team Status: Inactive Member Role Status Dates CARLOS Harley Primary Care Provider Activ e Melodie Alcaraz MD Attending Provider Active Team Status: Inactive Member Role Status Dates CARLOS Harley Primary Care Provider Activ e Melodie Alcaraz MD Attending Provider Active Álvaro Osborn MD Referring Provider Active Team Status: Active Member Role Status Dates Ibis Renteria NP-C Primary Care Provider Activ e Team Status: Inactive Member Role Status Dates Ibis Renteria NP-C Primary Care Provider Activ e Dyllan Pearce APRN Emergency Provider Active Team Status: Inactive Member Role Status Dates Ibisniharika Renteria , FREIGHT CONDUCTOR-C Primary Care Provider Activ e Christina Perez APRN Attending Provider Active Team Status: Inactive Member Role Status Dates Ibisniharika Renteria , FREIGHT CONDUCTOR-C Primary Care Provider Activ e Carlitos Nguyen Jr, DO Attending Provider Active Diamond Blender Relationship Specialty Start Date End Date Ibis RenteriaJesika, [employer] [address] [place] [address] PCP - General Nurse Practitioner 07/09/23 Diamond Blender Relationship Specialty Start Date End Date Blas Ibis A., [employer] [address] [place] [address] PCP - General Nurse Practitioner 07/09/23 Team Status: Inactive Member Role Status Dates Ibis Renteria , FREIGHT CONDUCTOR-C Primary Care Provider Activ gloria Martino , DO Emergency Provider Active Team Status: Inactive Member Role Status Dates Ibisniharika Renteria , FREIGHT CONDUCTOR-C Primary Care Provider Activ gloria Barnes , DO [facility] Attending Provider Active Goals (unrecognized section and content) Goals may be documented in a n alternate section FOR RECORDS PERTAINING TO PATIENTS WHO ARE OR HAVE BEEN ENROLLED IN A CHEMICAL DEPENDENCY/SUBSTANCEABUSE PROGRAM, SOME INFORMATION MAY BE OMITTED. This clinical summary was aggregated from multiple sources. Caution should be exercised in using it in the provision of clinical care. This summary normalizes information from multiple sources, and as a consequence, information in this document may materially change the coding, format and clinical context of patient data. In addition, data may be omitted in some cases. CLINICAL DECISIONS SHOULD BE BASED ON THE PRIMARY CLINICAL RECORDS. [employer] provides no warranty or guarantee of the accuracy or completeness of information in this document.
[2024-05-24 09:16] LABS: Basophils Percent Auto 0.5 % (0.2-2.0); Eosinophils Percent Auto 0.5 % (0.9-7.0); Hematocrit 38.7 % (36.0-48.0); Hemoglobin 13.5 g/dL (12.0-16.0); Immature Granulocytes Abs Auto 0.03 10^3/uL (0.00-0.03); Immature Granulocytes Pct Auto 0.4 % (0.0-0.5); Lymphocytes Absolute Auto 1.8 10^3/uL (1.2-3.8); Lymphocytes Percent Auto 23.3 % (20.5-60.0); Mean Corpuscular HGB Conc 34.9 g/dL (29.9-35.2); Mean Corpuscular Hemoglobin 29.7 pg (26.7-34.0); Mean Corpuscular Volume 85.1 fL (81.0-99.0); Mean Platelet Volume 10.3 fL (9.5-13.5); Monocytes Absolute Auto 0.5 10^3/uL (0.3-0.8); Monocytes Percent Auto 6.3 % (1.7-12.0); Neutrophils Absolute Auto 5.4 10^3/uL (1.4-6.5); Platelet Count 206 10^3/uL (150-450); Red Blood Count 4.55 10^6/uL (4.20-5.40); Red Cell Distribution Width 11.9 % (11.0-15.0); White Blood Count 7.8 10^3/uL (4.0-11.0)
[2024-05-24 09:51] LABS: Estimated Average Glucose 94 mg/dL; Glycohemoglobin A1C 4.9 % (4.5-6.2)
[2024-05-25 08:08] LABS: HCV Ab Non Reactive (Non Reactive); HIV Ab/p24 Ag Screen Non Reactive (Non Reactive)
[2024-05-25 09:07] LABS: Rapid Plasma Reagin, Quant Non Reactive titer (NonRea<1:1); Rubella Antibodies, IgG 1.36 index (Immune >0.99)
[2024-05-25 11:07] LABS: HBsAg Screen Negative (Negative)
== END 2024-05-24 08:00 | disposition home or self-care (01) ==
LOC: LAB 08:00
PROVIDERS: PCP Family Medicine; Visit Provider Obstetrics & Gynecology
DX: N92.6 Irregular menstruation, unspecified (principal)
CPT/HCPCS: 36415; 83036; 85025; 86592; 86762; 86803; 86850; 86900; 86901; 87086; 87340; 87389

== ENCOUNTER 2024-08-05 21:52 | Outpatient (REF) | payer OTHER, SELFPAY ==
--- OUTSIDE RECORDS SUMMARY | 2024-08-05 21:56 | XMS_ITS | CCD ---
Author Organization [facility] Care Team Providers Care Tile Inspector Name Role Phone Unavailable Primary Care Provider UnavailChristina Aranda Unavailable Ok Mckeon Unavailable Ibis Renteria Unavailable Unavailable Unavailable CARLOS Renteria Primary Care Provider MD Melodie Alcaraz Attending Provider [phone] MD Álvaro Osborn Referring Provider [phone] CARLOS Davidson Attending Provider [phone] [address] Emergency Provider Dr. Annalee Maza Attending Unavailab Dr. Melodie Dawson Referring Unavailable Blas, Ms. Ibis Winter Primary Care Unavail able Dr. Annalee Maza Admitting Unavailab le Unavailable Primary Care Provider Unavailabl e Unavailable Primary Care Provider Unavailsoniya Renteria NP-Akila Winter Primary Care Provider JOHNNY Perez Attending Provider CHAN MUÑIZ Attending UnavailIBIS Salas Referring Unavailable IBIS RENTERIA Primary Care Unavailable IBIS RENTERIA Primary Care Unavailable SPRING UMAÑA Referring Unavailable CHAN MUÑIZ Attending UnavailCARLOS Salas Primary Care Provider DO Carlitos Nguyen Jr Attending Provider [phone] Link, Dr. Annalee Torres Attending Unavailab le Link, Dr. Annalee Torres Referring Unavailab le Blas, Ms. Ibis Winter Primary Care Unavail able Link, Dr. Annalee Torres Attending Unavailab le Link, Dr. Annalee Torres Referring Unavailab le Blas, MsJesika Winter Primary Care Unavail able Link, Dr. Annalee Torres Attending Unavailab le Alcaraz, Dr. Sewell Referring Unavailable Blas, Ms. Ibis Winter Primary Care Unavail able Alcaraz, Dr. Sewell Attending Unavailable Alcaraz, Dr. Sewell Referring Unavailable Blas, Ms. Ibis Winter Primary Care Unavail able Link, Dr. Annalee Torres Attending Unavailab le Link, Dr. Annalee Torres Referring Unavailab le Blas, . Ibis Winter Primary Care Unavail able Alcaraz, Dr. Sewell Attending Unavailable Alcaraz, Dr. Sewell Referring Unavailable Blas, Ms. Ibis Winter Primary Care Unavail able Tabatha Cota Attending Unavailable Alcaraz, Dr. Sewell Referring Unavailable Blas, Ms. Ibis Winter Primary Care Unavail able Alcaraz, Dr. Sewell Attending Unavailable Alcaraz, Dr. Sewell Referring Unavailable Blas, Ms. Ibis Winter Primary Care Unavail able JOSE ARMANDO GREY Attending Unavailable Blas Ibis GOODSON Primary Care Provider Blas, 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 Maggy Primary Care Provider DO Haris Martino Emergency Provider [phone] DO Nam Barnes Attending Provider JB MANDUJANO Primary Care Physician Rinradha, Celeste Admitting Unavailable Rinkes, Celeste Attending Unavailable Jocelin FELIX Attending Unavailable Mae, MOISTURE METER READER Krista L Attending Unavailable Mae, MOISTURE METER READER Krista L Attending Unavailable Unavailable Primary Care Provider Unavailabl e Rinkes, Celeste Attending Unavailable Rinkes, Celeste Admitting Unavailable Rinkes, Celeste Attending Unavailable Rinkes, Celeste Admitting Unavailable JO AURORA M Referring Unavailable SANTIAGO, AURORA M Referring Unavailable SANTIAGO, AURORA M Attending Unavailable JOIE SEAMAN Attending Unavailable NOBLE, JYOTI Attending Unavailable NOBLE, JYOTI Attending Unavailable AURORA SANTIAGO Referring Unavailable AURORA SANTIAGO Referring Unavailable CELESTE WATSON Attending Unavailable CELESTE WATSON Attending Unavailable JB MANDUJANO Attending Unavailable JB MANDUJANO Attending Unavailable MAURISIO GASTON Attending Unavailable OSEI MALIK Attending Unavailable FLORI GIL Attending Unavailable Jb Mandujano MD Primary Care Provider Osei Malik DO Unavailable Flori Sam Unavailable Asuncion Boateng MD Primary Care Provider [phone] [facility] Unavailable Ibis Renteria Primary Care Unavailable Celeste Watson Attending Unavailable Celeste Watson Admitting Unavailable Allergies Allergy Classification Reported Allergen(s) Allergy Type Date of Onset Reaction(s) Facility Acetaminophen / oxyCODONE (1 source) Acetaminophen / oxyCODONE; Translations: [acetaminophen-oxy codone] Drug Allergy [facility] Comment on above: no narcotics, GI ups et Chlorhexidine (1 source) Chlorhexidine; Translations: [chlorhexidine topical] Drug Allergy [facility] Corticosteroids (1 source) predniSONE; Translations: [prednisone] Drug Allergy [facility] (13 sources) Morphinan opioid; Translations: [OPIOIDS - MORPHINE ANALOGUES] Propensity to adverse reactions to drug 01-26-20 Other: See Comments [facility] (20 sources) predniSONE; Translations: [predniSONE] Drug Allergy 01-26-20 Other: See Comments, Dizziness [facility] (7 sources) prednisoLONE; Translations: [prednisolone] Drug Allergy 01-11-20 GI Disturbance [facility] Other (15 sources) Fludrocortisone; Translations: [Florinef TABS] Drug Allergy Nausea -[facility] 320 DO Work Phone: (11 sources) Midodrine; Translations: [midodrine] Drug Allergy 08-13-[address] [facility] (3 sources) Acetaminophen / oxyCODONE; Translations: [Percocet] Drug Allergy [facility] Repository (4 sources) Chlorhexidine; Translations: [chlorhexidine topical] Drug Allergy Itching [facility] Repository (2 sources) Acetaminophen / oxyCODONE; Translations: [acetaminophen-oxy codone] Drug Allergy 07-07-20 24 GI Disturbance [facility] [place] Comment on above: no narcotics, GI ups et (3 sources) Acetaminophen / oxyCODONE Drug Allergy 02-26-20 24 [facility] (4 sources) Chlorhexidine Drug Allergy 02-21-[address] [facility] Work Phone: (4 sources) Fludrocortisone Drug Allergy 07-26-[address] [facility] (3 sources) Prednisone Allergy to substance 02-18-[address] [facility] (1 source) predniSONE Drug Allergy 06-08-20 23 [facility] Repository Medications Current Medications Medication Drug Class(es) Dates Sig (Normalized) Sig (Original) [id number] 200 actuat albuterol 0.09 mg/actuat metered dose inhaler (11 sources) beta2-Adrenergic Agonist Start: 03-13-2023 albuterol HFA 90 mcg/act inhaler 03/13/2023 Active Start: 06-01-2022 take 2 puff(s) by in halation every six hours as needed albuterol HFA (PROVENTIL HFA, VENTOLIN HFA) 90 mcg/actuation inhaler Inhale 2 Puffs as instructed every 6 hours as needed. 06/01/2022 Active Start: 06-01-2022 Albuterol Sulf ate HFA 108 (90 Base) MCG/ACT Inhalation Aerosol Solution Quantity: 8 Refills: 0 Ordered: 26-Jun-2022 DO Start : 01-Jun-2022 Active Comment on above: Inhale 2 Puffs as in structed every 6 hours as needed. Albuterol (Eqv-ProAir HFA) 90 mcg/inh inhalation aerosol (2 sources) Start: take 2 puff(s) by inhalation every four hours Albuterol (Eqv-ProAir HFA) 90 mcg/inh inhalation aerosol 2 puff(s), Inhalation, q4hr, Refill(s) 0 Start Date: 12/11/23 Status: Ordered clomiPHENE citrate 50 mg oral tablet (3 sources) Estrogen Agonist/Antagonist Start: 4 CLOMID 50 mg tablet 100 mg. 02/22/2024 Active Crutches Underarm Crutches (2 sources) Start: 2 Start: 10-10-2021 Crutches Under arm Crutches 1 pair diagnosis: left ankle sprain Sep, Active Ethinyl Estradiol / norelgestromin (2 sources) Progestin, Estrogen Ortho Evra A ctive [place] (No Known Home Meds) (1 source) Start: 3 [place] (No Known Home Meds) Active June 08, 2023 12:00am omeprazole 40 mg delayed release oral capsule (2 sources) Proton Pump Inhibitor Start: 4 take 1 capsule by mouth once daily omeprazole 40 mg Cap-DR 40 mg = 1 cap(s), Oral, Daily, # 30 cap(s), Refills(s) 1, Pharmacy: [facility], 168.3, cm, 12/11/23 13:07:00 EDT, Height/Length Dosing, 93.6, kg, 12/11/23 13:07:00 EDT, Weight Dosing Start Date: 12/11/23 Status: Ordered no115/iron/folic acid ( 19 ORAL) (1 source) no115/iron/folic acid ( 19 ORAL) Take by mouth. Active Vit-Fe Fumarate-FA (M- Plus) 27-1 MG tablet (3 sources) Start: 4 End: 5 take 1 tablet by mouth once daily Vit-Fe Fumarate-FA (M-Zak Plus) 27-1 MG tablet Indications: Patient desires Take 1 tablet by mouth Daily 30 tablet 06/06/2024 06/06/2025 Active Completed/Discontinued Medications Medication Drug Class(es) Dates Sig [...] Start: 08-01-2022 take 1 capsule by mo [facility] three times daily Droxidopa 100 MG Oral [...] above: Take 1 tablet by efrain th once daily. hydroxychloroquine sulfate 200 mg oral [...] daily Quantity: 30 Refills: 6 Ordered: 13-Jun-2023 [place] APRN-Tabatha GOODSON Start : 13-Jun-2023 Active methotrexate 2.5 mg [...] Ordered: 21-Jul-2022 Annalee Maza MD Start : 10-Jul-2022 Active Dose increase Start: 07-10-2022 take 1 tablet by efrain th three times daily Midodrine HCl - 5 MG Oral Tablet TAKE 1 TABLET 3 TIMES DAILY. Quantity: 270 Refills: 3 Ordered: 10-Jul-2022 Melodie Alcaraz MD Start : 10-Jul-2022 Active stop florinef Trisha 0.25-35 MG-MCG Oral Tablet (20 sources) [...] oral tablet (3 sources) Corticosteroid End: 07-31-20 22 take 1 tablet by mouth once daily [...] status; Translations: [Other specified counseling] Episodic Asthma (20 sources) Mild intermittent asthma; Translations: [Asthma, unspecified type, unspecified] Onset: 08-13-2023 02-26-2024 Chronic Cardiac dysrhythmias (20 sources) Ventricular premature beats; Translations: [Other premature beats] Onset: 08-13-2023 11-30-2023 Chronic Conduction disorders (2 sources) Unspecified right bundle-branch block; Translations: [Unspecified right bundle-branch block] Onset: 07-26-2022 Chronic Esophageal disorders (5 sources) Gastroesophageal reflux disease; Translations: [Gastro-esophageal reflux disease without esophagitis] Onset: 02-26-2024 12-11-2023 Chronic Headache; including migraine (3 sources) Tension-type headache; Translations: [Tension-type headache, unspecified, not intractable] Onset: 03-25-2024 03-25-2024 Chronic Influenza (4 sources) Influenza due to Influenza A virus; Translations: [Influenza due to other identified influenza virus with other respiratory manifestations] 06-01-2022 Episodic Joint disorders and dislocations; trauma-related (6 sources) Chondromalacia of right patella; Translations: [Chondromalacia patellae, right knee] Onset: 02-17-2023 02-17-2023 Chronic Menstrual disorders (6 sources) Dysmenorrhea; Translations: [Dysmenorrhea, unspecified] Onset: 02-26-2024 02-26-2024 Chronic Osteoarthritis (1 source) Arthritis; Translations: [Unspecified osteoarthritis, [...] of gluteal region] Onset: 07-10-2023 Episodic Other endocrine disorders (3 sources) Polycystic ovary syndrome; Translations: [Polycystic ovarian syndrome] Onset: 02-26-2024 02-26-2024 Chronic Other nervous system disorders (1 source) Other [...] sources) Obesity; Translations: [Obesity, unspecified] Chronic Other and delivery including normal (2 sources) Second trimester ; Translations: [Encounter for supervision of normal , unspecified, second trimester] 07-03-2024 Episodic Residual codes; unclassified (2 sources) Gestation period, 14 weeks; Translations: [14 weeks gestation of ] 07-03-2024 Episodic Superficial injury; contusion (7 sources) Contusion of elbow; Translations: [Contusion of unspecified elbow, initial encounter] 09-20-2019 Episodic Past or Other Problems Problem Classification Problem Date Documented Da te Episodic/Chronic Cardiac dysrhythmias (20 sources) Palpitations; Translations: [Palpitations] Onset: 08-13-2023 06-16-2023 Episodic Immunizations and screening for infectious disease (4 sources) Patient encounter status; Translations: [Encounter for immunization] Onset: 07-05-2023 03-25-2024 Episodic Joint disorders and dislocations; trauma-related (5 sources) Tear of medial meniscus of knee; Translations: [Other tear of medial meniscus, current injury, unspecified knee, initial encounter] Onset: 02-26-2024 07-26-2021 Episodic Nonspecific chest pain (20 sources) Atypical chest pain; Translations: [Other chest pain] Onset: 08-13-2023 06-16-2023 Episodic Other bone disease and musculoskeletal deformities (3 sources) Chondromalacia; Translations: [Chondromalacia, unspecified site] Onset: 02-26-2024 02-26-2024 Episodic Other connective tissue disease (3 sources) Pain in right thumb; Translations: [Pain in right finger(s)] Onset: 02-26-2024 02-26-2024 Episodic Other connective tissue disease (3 sources) Radial styloid tenosynovitis; Translations: [Radial styloid tenosynovitis [de Quervain]] Onset: 02-26-2024 02-26-2024 Episodic Other infections; including parasitic (20 sources) Personal history of other infectious and parasitic diseases; Translations: [Personal history of COVID-19] Onset: 08-13-2023 02-26-2024 Episodic Other lower respiratory disease (20 sources) Dyspnea; Translations: [Other respiratory abnormalities] Onset: 08-13-2023 02-26-2024 Episodic Other non-traumatic joint disorders (1 source) Pain in left ankle and joints of left foot Onset: 10-10-2021 Resolved: 10-10-2021 Episodic Other screening for suspected conditions (not mental disorders or infectious disease) (20 sources) Pulmonary function studies abnormal; Translations: [Nonspecific abnormal results of pulmonary function study] Onset: 08-13-2023 02-26-2024 Episodic Other skin disorders (1 source) Rash and other nonspecific skin eruption Onset: 01-10-2022 Resolved: 01-10-2022 Episodic Residual codes; unclassified (1 source) Transient alteration of awareness; Translations: [Transient alteration of awareness] Onset: 11-12-2023 Episodic Spondylosis; intervertebral disc disorders; other back problems (3 sources) Sciatica; Translations: [Sciatica, unspecified side] Onset: 02-17-2023 02-17-2023 Episodic Sprains and strains (1 source) Sprain of unspecified ligament of left ankle, initial encounter Onset: 10-10-2021 Resolved: 10-10-2021 Episodic Syncope (20 sources) Syncope; Translations: [Syncope and collapse] Onset: 06-12-2022 Episodic Unclassified (20 sources) Never smoked tobacco; Translations: [Never a smoker] Unclassified (20 sources) Patient status finding; Translations: [Patient new to provider] Resolved: 09-11-2022 NEGATED: Highlighted row has been ruled out!Unclassified (1 source) No known active problems 02-19-2018 Results Test Name Value Interpretation Reference Range Facility Urinalysis macro (dipstick) panel (U)on 07-03-2024 Bilirubin, UA Negative Negative - 4(70) +++ mg/dL [facility] Blood, UA Negative Negative - 50 Vasu/mcL [facility] Clarity, UA Clear [facility] Color, UA Yellow [facility] Glucose, UA Positive Negative - 2000(110) ++++ mg/dL [facility] Comment on above: 500 Interpretation and review of laboratory results Abnormal [facility] Ketones, UA Negative Negative - 160(16) ++++ mg/dL [facility] Leukocytes, UA Negative Negative - 500+++ Conrad/mcL [facility] Nitrite, UA Negative Negative - Positive [facility] pH, UA 6.0 5 - 9 [facility] Protein, UA Negative Negative - 2000(20) ++++ mg/dL [facility] Spec Grav, UA 1.015 1 - 1.03 [facility] Urobilinogen, UA 0.2 0.2 - 12 mg/dL [facility] CBC without diffon Hematocrit (Bld) [Volume fraction] 38.7 % [facility] Hemoglobin (Bld) [Mass/Vol] 13.5 g/dL [facility] CHEMISTRYOrdered By: SYSTEM SYSTEM on 04-12-2024 Progesterone [...] Progesterone Lvl 31.70 ng/mL Invalid Interpretation Code [facility] Comment on above: Result Comment: 'F N ON FOLLICULAR = 0.10 - 0.60' 'LUTEAL = 3.00 - 17.5' 'MIDLUTEAL = 3.30 - 18.6' 'POST-MENOPAUSE = 0.10 - 0.40' '-FIRST TRIMESTER = 8.30 - 66.5' 'SECOND TRIMESTER = 18.9 - 66.1' 'THIRD TRIMESTER = 35.8 - 312.4' 'MALES = 0.14 - 2.06' Performed By: #### 2 [id number] #### [facility] [address] [place] [address] CHEMISTRYOrdered By: SYSTEM SYSTEM on 03-14-2024 Progesterone [...] Consent for Treatmenton 02-23 Consent for Treatment [id number]#1.00TIFF Normal [facility] Physician Orderon 03-14-2024 Physician Order [id number]#[id number] Normal [facility] Progesteroneon 03-14-2024 Progesterone Lvl 16.15 ng/mL Invalid Interpretation Code [facility] Comment on above: Result Comment: 'F N ON FOLLICULAR = 0.10 - 0.60' 'LUTEAL = 3.00 - 17.5' 'MIDLUTEAL = 3.30 - 18.6' 'POST-MENOPAUSE = 0.10 - 0.40' '-FIRST TRIMESTER = 8.30 - 66.5' 'SECOND TRIMESTER = 18.9 - 66.1' 'THIRD TRIMESTER = 35.8 - 312.4' 'MALES = 0.14 - 2.06' Performed By: #### 2 [id number] #### [facility] [address] [place] [address] Ambulatory Visit Summaryon 0 12-11-2023 Ambulatory Visit Summary MADYSON MAI :2000 Visit Date:12/11/2023 Ambulatory Visit Instructions Your Diagnosis Acid reflux BMI 33.0-33.9,adult Class 1 obesity due to excess calories in adult Nonsmoker Your Care Team Attending Physician - Krista Daley Primary Care Physician - Krisat Daley This Is Your Medications List albuterol [...] 11:20 AM EDT With: Krista Daley Where: [facility] [place] Normal [facility] Family Medicine Office/Clini c Noteon 12-11-2023 Family Medicine Office/Clinic Note HPI Staff Madyson is a 23 year old female presenting to establish care Establish Care: History: Any previous diagnosis: POTS (11/30/23) History of seeing any specialist: Jyoti Dickey CCIgnacio for the POTS,, 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 BMI 33.0-33.9,adult (Z68.33: Body mass index [BMI] 33.0-33.9, adult) BMI education complete Ordered: omeprazole, 40 mg = 1 cap(s), Oral, Daily, # 30 cap(s), Refills(s) 1, Pharmacy: [facility], 168.3, cm, 12/11/23 13:07:00 EDT, Height/Length Dosing, 93.6, kg, 12/11/23 13:07:00 EDT, Weight Dosing 3. Class 1 obesity due to excess calories in adult (E66.09: Other obesity due to excess calories) see above Ordered: omeprazole, 40 mg = 1 cap(s), Oral, Daily, # 30 cap(s), Refills(s) 1, Pharmacy: [facility], 168.3, cm, 12/11/23 13:07:00 EDT, Height/Length Dosing, 93.6, kg, 12/11/23 13:07:00 EDT, Weight Dosing 4. Nonsmoker (Z78.9: Other specified health status) continue not smoking Ordered: omeprazole, 40 mg = 1 cap(s), Oral, Daily, # 30 cap(s), Refills(s) 1, Pharmacy: [facility], 168.3, cm, 12/11/23 13:07:00 EDT, Height/Length [...] 03/05/2002 Recorded (more content not included)... Normal [facility] Comment on above: Result Comment: Elec tronically Signed By: Krista Daley\\.br\\Date and Time Signed: 12/11/23 13:32 EDT CNOVon 11-30-2023 CNOV Office Visit (NENMMN ) ----- MADYSON MAI ([id number]) 2 F Date Time Provider Department 11/30/23 10:00 AM JYOTI DICKEYAKARRON During your visit today, we recorded the following information about you: Pulse Blood pressure Weight Height 84/minute 118/79 93 kg 1.651 Jyoti Luis PA-C 11/30/2023 11:14 AM Signed [facility] New Patient Evaluation [...] experienced LOC while walking up the stairs. [place] prodromal symptoms including lightheadedness and tunnel vision. [...] Urination: + (more content not included)... Normal [facility] ECHOon 11-12-2023 Echocardiography Echocardiography Rep ort: Transthoracic Echo [facility] A17 Date of service: 11/12/2023 1:08:10 PM PROOF PRESS OPERATOR Ordering physician: AURORA SANTIAGO Indication: Initial evaluation [...] * * Final * * * CC [facility] : [id number] Normal [facility] CNOVon 10-10-2023 CNOV Office Visit (NEADMN ) ----- MADYSON MAI ([id number]) 2 F Date Time Provider Department 10/10/23 2:00 PM AURORA SANTIAGO During your visit today, we recorded the following information about you: Pulse Blood pressure Weight Height 108/minute 119/85 93 kg 1.651 m Aurora Santiago PA-C 10/10/2023 4:33 PM Signed [facility] New Patient Evaluation [...] on BC (more content not included)... Normal [facility] Quantiferon-TB Plus (Client Incubated)on 07-26-2023 Gamma interferon background IA Qn (Bld) 0.01 International_Unit/mL Invalid Interpretation Code [facility] Comment on above: Performed By: #### 1 [id number] #### [facility] [address] [place] [address] M. tuberculosis stim IFN-g by CD4+ CD8+ T-cells Qn (Bld) 0.30 International_Unit/mL Invalid Interpretation Code [facility] Comment on above: Performed By: #### 1 [id number] #### [facility] [address] [place] [address] M. tuberculosis stim IFN-g by CD4+ T-cells Qn (Bld) 0.23 International_Unit/mL Invalid Interpretation Code [facility] Comment on above: Performed By: #### 1 [id number] #### [facility] [address] [place] [address] M. tuberculosis stim IFN-g Ql (Bld) [Interp] Negative Invalid Interpretation Code Negative [facility] Comment on above: Result Comment: No r [...] interferon gamma. Chemiluminescence immunoassay methodology Performed at: [employer] [id number] PhD Rubio Vinson Performed By: #### 1 [id number] #### [facility] [address] [place] [address] Mitogen stimulated gamma interferon Qn (Bld) >10.00 Invalid Interpretation Code [facility] Comment on above: Performed By: #### 1 [id number] #### [facility] [address] [place] [address] Service comment (Unsp spec) [Interp] Comment Invalid Interpretation Code [facility] Comment on above: Result Comment: Link tiFERON-TB [...] for the test. Performed By: #### 1 [id number], [id number] #### [facility] [address] [place] [address] Hep Bs Abon 07-25-2023 HBV surface Ab Ql (S) Non-Reactive Invalid Interpretation Code [facility] Comment on above: Result Comment: Non Reactive: Inconsistent with immunity, less than 10 mIU/mL Reactive: Consistent with immunity, greater than 9.9 mIU/mL Performed at: [facility] [id number] PhD Rubio Vinson Performed By: #### 1 [id number], [id number] #### [facility] [address] [place] [address] Measles/Mumps/Rubella Immuni tyon 07-25-2023 MeV IgG IA Qn (S) 34.3 A unit/mL Invalid Interpretation Code Immune >16.4 [facility] Comment on above: Result Comment: Nega tive <13.5 Equivocal 13.5 - 16.4 Positive >16.4 Presence of antibodies to Rubeola is presumptive evidence of immunity except when acute infection is suspected. Performed By: #### 1 [id number], [id number] #### [facility] [address] [place] [address] MuV IgG IA Qn (S) <9.0 Low Immune >10.9 [facility] Comment on above: Result Comment: Nega tive <9.0 Equivocal 9.0 - 10.9 Positive >10.9 A positive result generally indicates past exposure to Mumps virus or previous vaccination. Performed at: [address] [id number] PhD Rubio Vinson Performed By: #### 1 [id number] #### [facility] [address] [place] [address]186 Rubella virus IgG Qn (S) 1.53 [IU]/mL Invalid Interpretation Code Immune >0.99 [facility] Comment on above: Result Comment: Non- immune <0.90 Equivocal 0.90 - 0.99 Immune >0.99 Performed By: #### 1 [id number] #### [facility] [address] [place] [id number] Varic IgGon 07-25-2023 VZV IgG IA Qn (S) 475 Invalid Interpretation Code Immune >165 [facility] Comment on above: Result Comment: Nega tive <135 Equivocal 135 - 165 Positive >165 A positive result generally indicates exposure to the pathogen or administration of specific immunoglobulins, but it is not indication of active infection or stage of disease. Performed at: [address] [id number] PhD Rubio Vinson Performed By: #### 1 [id number] #### [facility] [address] [place] [address]257 CNOVon 07-10-2023 CNOV Office Visit (ORFWHP ) ----- MADYSON SCHMID ([id number]) 2 F Date Time Provider Department 07/10/23 9:40 AM JOSE ARMANDO GREY During your visit today, we recorded the following information about you: Jose Armando Grey, 07/10/2023 10:08 AM Signed [facility] Office Visit Documentation Note [facility]opa[facility] Rheumatologic [place] HISTORY OF PRESENT ILLNESS (HPI) CHIEF COMPLAINT / REASON FOR VISIT SERVICE DATE: July 10, 2023 PCP: No primary care provider on file. Madyson Schmid is here today at request of Dr. Jose Armando Schmid specifically for consultation of my opinion in regards to the chief complaint listed below. Correspondence will be shared today via the [employer] electronic health record or through regular mail, [...] expectations. She need to consider PT or program director/air personality. Reaction knee brace Consider [place] toradol, did discuss orthobiologics Follow up: Films prior to visit: Written instructions (see patient instructions) and verbal health education given to patient. Patient verbalizes understanding and agrees with the treatment plan. Jose Armando Grey D.O. [facility] Rheumat[facility] Packaging Assembler, [facility] [facility] AND [employer] Program Team Physician, [facility] Baseball Club Consulting Physician, [place] Martin Nagel, Print Shop Helper [phone] Referring Provider: SELF [200] Allergies As of [...] Level of (more content not included)... [facility] [facility] Tobacco Screening.on 023 Adult depression screening assessment No -[facility] 600 DO Work Phone: Tobacco use status CPHS b) No [facility] 600 DO Work Phone: Activated partial thrombopla stin time (aPTT) in platelet poor plasma by coagulation aOrdered By: Haris Martino on 06-08-2023 aPTT Coag (PPP) [Time] 28.9 s 25.1-36.5 [facility] Comment on above: A hematocrit value g reater than 55% may lead to inaccurate results in coagulation testing. Patients having hematocrit values >55% require a special collection tube for coagulation studies. Please contact the laboratory at [phone] for redraw instructions. Alanine aminotransferase [En zymatic activity/volume] in Serum or PlasmaOrdered By: Haris Martino on 06-08-2023 ALT [Catalytic activity/Vol] 42 U/L 7-52 [facility] Albumin [Mass/volume] in Ser um or Plasma by Bromocresol green (BCG) dye binding methoOrdered By: Haris Martino on 06-08-2023 Albumin BCG dye [Mass/Vol] 4.6 g/dL 3.5-5.7 [facility] Alkaline phosphatase [Enzyma tic activity/volume] in Serum or PlasmaOrdered By: Haris Martino on 06-08-2023 ALP [Catalytic activity/Vol] 78 U/L 34-104 [facility] Aspartate aminotransferase [ Enzymatic activity/volume] in Serum or PlasmaOrdered By: Haris Martino on 06-08-2023 AST [Catalytic activity/Vol] 22 U/L 13-39 [facility] Automated erythrocytes count in urine sediment (number/area)Ordered By: Haris Martino on 06-08-2023 RBC Auto (Urine sed) [#/Area] 5-9 [HPF] 0-4 [facility] Automated leukocytes count i n urine sediment (number/area)Ordered By: Haris Martino on 06-08-2023 WBC Auto (Urine sed) [#/Area] 3-4 [HPF] 0-4 [facility] Basophils Auto (Bld) [#/Vol] Ordered By: Haris Martino on 06-08-2023 Basophils (Bld) [#/Vol] 0.1 10*3/uL 0.0-0.2 [facility] Basophils/100 WBC Auto (Bld) Ordered By: Haris Martino on 06-08-2023 Basophils/100 WBC (Bld) 1.0 % . [facility] Bilirubin Test strip Ql (U)O rdered By: Haris Martino on 06-08-2023 Bilirubin Ql (U) Negative Negative [facility] Bilirubin.direct [Mass/volum e] in Serum or PlasmaOrdered By: Haris Martino on 06-08-2023 Bilirubin.direct [Mass/Vol] 0.10 mg/dL 0.03-0.18 [facility] Bilirubin.total [Mass/volume ] in Serum or PlasmaOrdered By: Haris Martino on 06-08-2023 Bilirubin [Mass/Vol] 0.4 mg/dL 0.3-1.0 [facility] Calcium [Mass/volume] in Ser um or PlasmaOrdered By: Haris Martino on 06-08-2023 Calcium [Mass/Vol] 9.4 mg/dL 8.6-10.3 [facility] Carbon dioxide, total [Moles /volume] in Serum or PlasmaOrdered By: Haris Martino on 06-08-2023 CO2 [Moles/Vol] 29.3 mmol/L 21.0-31.0 [facility] Chloride [Moles/volume] in S colin or PlasmaOrdered By: Haris Martino on 06-08-2023 Chloride [Moles/Vol] 104 mmol/L 98-107 [facility] Color Auto (U)Ordered By: Terrell resendiz Salena on 06-08-2023 Color (U) Yellow Yellow [facility] Creatine kinase [Enzymatic a ctivity/volume] in Serum or PlasmaOrdered By: Haris Martino on 06-08-2023 CK [Catalytic activity/Vol] 55 U/L 30-223 [facility] Creatinine [Mass/volume] in Serum or PlasmaOrdered By: Haris Martino on 06-08-2023 Creatinine [Mass/Vol] 0.64 mg/dL 0.60-1.20 [facility] Eosinophils Auto (Bld) [#/Vo l]Ordered By: Haris Martino on 06-08-2023 Eosinophils (Bld) [#/Vol] 0.1 10*3/uL 0.0-0.45 [facility] Eosinophils/100 WBC Auto (Bl d)Ordered By: Haris Martino on 06-08-2023 Eosinophils/100 WBC (Bld) 0.8 % . [facility] Erythrocyte distribution wid th Auto (RBC) [Ratio]Ordered By: Haris Martino on 06-08-2023 Erythrocyte distribution width (RBC) [Ratio] 12.9 % 11.9-15.3 [facility] Fibrin D-dimer [Presence] in Platelet poor plasma by Latex agglutinationOrdered By: Haris Martino on 06-08-2023 Fibrin D-dimer LA Ql (PPP) < 200 ng/mL 0-243 [facility] Comment on above: The reference range [...] coagulation studies. Please contact the laboratory at [phone] for redraw instructions. Globulin Calc (S) [Mass/Vol] Ordered By: Haris Martino on 06-08-2023 Globulin (S) [Mass/Vol] 2.9 g/dL [facility] Glucose [Mass/volume] in Ser um or PlasmaOrdered By: Haris Martino on 06-08-2023 Glucose [Mass/Vol] 79 mg/dL 70-100 [facility] Comment on above: ADA recommended refe rence rangeRandom Glucose Reference Range is dependent on time and content of last meal. Glucose of more than 200 mg/dL in a nonstressed, ambulatory subject supports the diagnosis of Diabetes Mellitus. HCG ( test) IA.rapi d Ql (U)Ordered By: Haris Martino on 06-08-2023 HCG ( test) Ql (U) Negative [facility] Hematocrit Auto (Bld) [Volum e fraction]Ordered By: Haris Martino on 06-08-2023 Hematocrit (Bld) [Volume fraction] 42.4 % 34.0-46.4 [facility] Hemoglobin [Mass/volume] in BloodOrdered By: Haris Martino on 06-08-2023 Hemoglobin (Bld) [Mass/Vol] 14.5 g/dL 11.8-15.4 [facility] INR in Platelet poor plasma by Coagulation assayOrdered By: Haris Martino on 06-08-2023 INR Coag (PPP) [Relative time] 1.0 {INR} [facility] Comment on above: INR Therapeutic Rang [...] Auto test strip (U) [Mass/Vol]Ordered By: Haris Mratino on 06-08-2023 Ketones (U) [Mass/Vol] Negative Negative [facility] - UrinalysisOrder ed By: Haris Martino on 06-08-2023 Hyaline casts LM Ql (Urine sed) 0-8 [LPF] 0-8 [facility] Leukocytes [#/volume] correc matt for nucleated erythrocytes in Blood by Automated counOrdered By: Haris Martino on 06-08-2023 WBC corrected for nucl RBC Auto (Bld) [#/Vol] 8.3 10*3/uL 3.8-11.6 [facility] Lymphocytes Auto (Bld) [#/Vo l]Ordered By: Haris Martino on 06-08-2023 Lymphocytes (Bld) [#/Vol] 3.0 10*3/uL 1.00-4.8 [facility] Lymphocytes/100 WBC Auto (Bl d)Ordered By: Haris Martino on 06-08-2023 Lymphocytes/100 WBC (Bld) 36.0 % . [facility] MCH Auto (RBC) [Entitic mass ]Ordered By: Haris Martino on 06-08-2023 MCH (RBC) [Entitic mass] 29.4 pg 24.7-34.3 [facility] MCHC Auto (RBC) [Mass/Vol]Or dered By: Haris Martino on 06-08-2023 MCHC (RBC) [Mass/Vol] 34.2 g/dL 32.0-35.0 [facility] MCV Auto (RBC) [Entitic vol] Ordered By: Haris Martino on 06-08-2023 MCV (RBC) [Entitic vol] 85.9 fL 80-100 [facility] Monocyte distribution width [Entitic volume] in Blood by AutomatedOrdered By: Haris Martino on 06-08-2023 Monocyte distribution width Auto (Bld) [Entitic vol] 18.39 % 0.00-20.00 [facility] Monocytes Auto (Bld) [#/Vol] Ordered By: Haris Martino on 06-08-2023 Monocytes (Bld) [#/Vol] 0.5 10*3/uL 0.0-0.8 [facility] Monocytes/100 WBC Auto (Bld) Ordered By: Haris Martino on 06-08-2023 Monocytes/100 WBC (Bld) 6.6 % . [facility] Natriuretic peptide B [Mass/ Vol]Ordered By: Haris Martino on 09-15-2023 Natriuretic peptide B (Bld) [Mass/Vol] 9.0 pg/mL 5-100 [facility] Neutrophils Auto (Bld) [#/Vo l]Ordered By: Haris Martino on 06-08-2023 Neutrophils (Bld) [#/Vol] 4.6 10*3/uL 1.8-7.7 [facility] Neutrophils/100 WBC Auto (Bl d)Ordered By: Haris Martino on 06-08-2023 Neutrophils/100 WBC (Bld) 55.6 % . [facility] Nitrite Test strip Ql (U)Ord ered By: Haris Martino on 06-08-2023 Nitrite Ql (U) Negative Negative [facility] No Panel InformationOrdered By: Haris Martino on 06-08-2023 Estimated GFR (CKD-EPI) > 60.0 mL/Min [facility] Creatinine Clearance (Chem 155.50 [facility] Nucleated erythrocytes [Pres ence] in Blood by Automated countOrdered By: Haris Martino on 06-08-2023 Nucleated RBC Auto Ql (Bld) 0.1 /100{WBC} 0-0.5 [facility] Platelet mean volume Auto (B ld) [Entitic vol]Ordered By: Haris Martino on 06-08-2023 Platelet mean volume (Bld) [Entitic vol] 8.2 fL 6.3-10.7 [facility] Platelets Auto (Bld) [#/Vol] Ordered By: Haris Martino on 06-08-2023 Platelets (Bld) [#/Vol] 225 10*3/uL 150-450 [facility] Potassium [Moles/volume] in Serum or PlasmaOrdered By: Haris Martino on 06-08-2023 Potassium [Moles/Vol] 4.0 mmol/L 3.5-5.1 [facility] Protein Auto test strip (U) [Mass/Vol]Ordered By: Haris Martino on 06-08-2023 Protein (U) [Mass/Vol] Negative Negative [facility] Protein [Mass/volume] in Ser um or PlasmaOrdered By: Haris Martino on 06-08-2023 Protein [Mass/Vol] 7.5 g/dL 6.4-8.9 [facility] Prothrombin time (PT)Ordered By: Haris Martino on 06-08-2023 PT Coag (PPP) [Time] 12.2 s 9.0-12.9 [facility] Comment on above: A hematocrit value g reater than 55% may lead to inaccurate results in coagulation testing. Patients having hematocrit values >55% require a special collection tube for coagulation studies. Please contact the laboratory at [phone] for redraw instructions. RBC Auto (Bld) [#/Vol]Ordere d By: Haris Martino on 06-08-2023 RBC (Bld) [#/Vol] 4.94 10*6/uL 3.60-5.00 [facility] Serum or plasma albumin/glob ulin mass ratioOrdered By: Haris Martino on 06-08-2023 Albumin/Globulin [Mass ratio] 1.6 {ratio} [facility] Serum or plasma anion gap de terminationOrdered By: Haris Martino on 06-08-2023 Anion gap [Moles/Vol] 9.7 mmol/L 6.0-15.0 [facility] Serum or plasma non-glucuron idated bilirubin measurement (mass/volume)Ordered By: Haris Martino on 06-08-2023 Bilirubin.indirect [Mass/Vol] 0.3 mg/dL [facility] Sodium [Moles/volume] in Ser um or PlasmaOrdered By: Haris Martino on 06-08-2023 Sodium [Moles/Vol] 139 mmol/L 136-145 [facility] Specific gravity Auto test s trip (U) [Rel density]Ordered By: Haris Martino on 06-08-2023 Specific gravity (U) [Rel density] 1.015 1.001-1.03 0 [facility] Squamous epithelial cells de tection in urine sediment by light microscopyOrdered By: Haris Martino on 06-08-2023 Epithelial cells.squamous LM Ql (Urine sed) 3-4 [HPF] 0-2 [facility] Troponin I.cardiac [Mass/vol ume] in Serum or Plasma by Detection limit <= 0.01 ng/Ordered By: Haris Martino on 06-08-2023 Troponin I.cardiac DL <= 0.01 ng/mL [Mass/Vol] < 2.3 pg/mL 0.0-15.0 [facility] Urea nitrogen [Mass/volume] in Serum or PlasmaOrdered By: Haris Martino on 06-08-2023 Urea nitrogen [Mass/Vol] 10 mg/dL 7 [facility] Urine bacteria detection by automated methodOrdered By: Haris Martino on 06-08-2023 Bacteria Auto Ql (U) 1+ None Seen [facility] Urine clarity by refractomet ry automatedOrdered By: Haris Martino on 06-08-2023 Clarity Refractometry automated (U) Clear Clear [facility] Urine glucose measurement by automated test strip (mass/volume)Ordered By: Haris Martino on 06-08-2023 Glucose Auto test strip (U) [Mass/Vol] Normal mg/dL Normal [facility] Urine hemoglobin detection b y automated test stripOrdered By: Haris Martino on 06-08-2023 Hemoglobin Auto test strip Ql (U) Negative Negative [facility] Urine leukocyte esterase det ection by automated test stripOrdered By: Haris Martino on 06-08-2023 Leukocyte esterase Auto test strip Ql (U) 1+ Negative [facility] Urobilinogen Auto test strip (U) [Mass/Vol]Ordered By: Haris Martino on 06-08-2023 Urobilinogen (U) [Mass/Vol] Normal mg/dL Normal [facility] WBC Auto (Bld) [#/Vol]Ordere d By: Haris Martino on 06-08-2023 WBC (Bld) [#/Vol] 8.3 10*3/uL 3.8-11.6 [facility] pH Auto test strip (U)Ordere d By: Haris Martino on 06-08-2023 pH (U) 6.5 [pH] 5.0-9.0 [facility] Alanine aminotransferase [En zymatic activity/volume] in Serum or PlasmaOrdered By: Carlitos Nguyen on 04-25-2023 ALT [Catalytic activity/Vol] 18 U/L 752 [facility] Albumin [Mass/volume] in Ser um or Plasma by Bromocresol green (BCG) dye binding methoOrdered By: Carlitos Nguyen on 04-25-2023 Albumin BCG dye [Mass/Vol] 4.8 g/dL 3.5-5.7 [facility] Alkaline phosphatase [Enzyma tic activity/volume] in Serum or PlasmaOrdered By: Carlitos Nguyen on 04-25-2023 ALP [Catalytic activity/Vol] 73 U/L 34-104 [facility] Aspartate aminotransferase [ Enzymatic activity/volume] in Serum or PlasmaOrdered By: Carlitos Nguyen on 04-25-2023 AST [Catalytic activity/Vol] 18 U/L 13-39 [facility] Bilirubin.total [Mass/volume ] in Serum or PlasmaOrdered By: Carlitos Nguyen on 04-25-2023 Bilirubin [Mass/Vol] 0.5 mg/dL 0.3-1.0 [facility] Calcium [Mass/volume] in Ser um or PlasmaOrdered By: Carlitos Nguyen on 04-25-2023 Calcium [Mass/Vol] 9.9 mg/dL 8.6-10.3 [facility] Carbon dioxide, total [Moles /volume] in Serum or PlasmaOrdered By: Carlitos Nguyen on 04-25-2023 CO2 [Moles/Vol] 25.9 mmol/L 21.0-31.0 [facility] Chloride [Moles/volume] in S colin or PlasmaOrdered By: Carlitos Nguyen on 04-25-2023 Chloride [Moles/Vol] 105 mmol/L 98-107 [facility] Cholesterol [Mass/volume] in Serum or PlasmaOrdered By: Carlitos Nguyen on 04-25-2023 Cholesterol [Mass/Vol] 208 mg/dL 140-200 [facility] Comment on above: Chol less than 200 m g/dl low riskChol 201-239 mg/dl borderline riskChol 240 mg/dl and greater high risk Cholesterol in LDL Calc [Mas s/Vol]Ordered By: Carlitos Nguyen on 04-25-2023 Cholesterol in LDL [Mass/Vol] 136 mg/dL 0-100 [facility] Comment on above: LDL ATP III CLASSIFI CATIONLDL less than 100 mg/dL OptimalLDL 100-129 mg/dL Near or above optimalLDL 130-159 mg/dL Borderline highLDL 160-189 mg/dL HighLDL greater than 189 mg/dL Very high Cholesterol in VLDL Calc [Ma ss/Vol]Ordered By: Carlitos Nguyen on 04-25-2023 Cholesterol in VLDL [Mass/Vol] 16 mg/dL [facility] Creatinine [Mass/volume] in Serum or PlasmaOrdered By: Carlitos Nguyen on 04-25-2023 Creatinine [Mass/Vol] 0.81 mg/dL 0.60-1.20 [facility] Globulin Calc (S) [Mass/Vol] Ordered By: Carlitos Nguyen on 04-25-2023 Globulin (S) [Mass/Vol] 2.6 g/dL [facility] Glucose [Mass/volume] in Ser um or PlasmaOrdered By: Carlitos Nguyen on 04-25-2023 Glucose [Mass/Vol] 84 mg/dL 70-100 [facility] No Panel InformationOrdered By: Carlitos Nguyen on 04-25-2023 Estimated GFR (CKD-EPI) > 60.0 mL/Min [facility] Creatinine Clearance (Chem N/A [facility] Potassium [Moles/volume] in Serum or PlasmaOrdered By: Carlitos Nguyen on 04-25-2023 Potassium [Moles/Vol] 4.3 mmol/L 3.5-5.1 [facility] Comment on above: Hemolysis is present at a level that could interfere with the result. Protein [Mass/volume] in Ser um or PlasmaOrdered By: Carlitos Nguyen on 04-25-2023 Protein [Mass/Vol] 7.4 g/dL 6.4-8.9 [facility] Serum or plasma albumin/glob ulin mass ratioOrdered By: Carlitos Nguyen on 04-25-2023 Albumin/Globulin [Mass ratio] 1.8 {ratio} [facility] Serum or plasma anion gap de terminationOrdered By: Carlitos Nguyen on 04-25-2023 Anion gap [Moles/Vol] 12.4 mmol/L 6.0-15.0 [facility] Serum or plasma high density lipoprotein (HDL) cholesterol measurementOrdered By: Carlitos Nguyen on 04-25-2023 Cholesterol in HDL [Mass/Vol] 55 mg/dL 23- [facility] Comment on above: HDL CHOL ATP-III CLA SSIFICATION Cardiovascular RiskHDL > or equal to 60 mg/dL LOWHDL < 40 mg/dL HIGH Serum or plasma total choles terol/high density lipoprotein (HDL) cholesterol mass ratOrdered By: Carlitos Nguyen on 04-25-2023 Cholesterol.total/Chol esterol in HDL [Mass ratio] 3.8 {ratio} <5.0 [facility] Sodium [Moles/volume] in Ser um or PlasmaOrdered By: Carlitos Nguyen on 04-25-2023 Sodium [Moles/Vol] 139 mmol/L 136-145 [facility] Triglyceride [Mass/volume] i n Serum or PlasmaOrdered By: Carlitos Nguyen on 04-25-2023 Triglyceride [Mass/Vol] 83 mg/dL 0-149 [facility] Comment on above: TRIG ATP III CLASSIF ICATIONTRIG less than 150 mg/dL NormalTRIG 150-199 mg/dL Borderline highTRIG 200-500 mg/dL High TRIG greater than 500 mg/dL Very highStandard traceable to the Center for Disease Conrtrol and Prevention (CDC) test method. Urea nitrogen [Mass/volume] in Serum or PlasmaOrdered By: Carlitos Nguyen on 04-25-2023 Urea nitrogen [Mass/Vol] 15 mg/dL 7- [facility] Tobacco Screening.on 023 Adult depression screening assessment No [facility] 320 DO Work Phone: Fall risk assessment a) No falls within the last year [facility] 320 DO Work Phone: Tobacco use status CPHS b) No [facility] 320 DO Work Phone: Office Visit (Cardiology)on 09-11-2022 Follow-up visit Diagnoses/Problems Assessed Autonomic orthostatic hypotension (458.0) (I95.1) Abnormal tilt table test (794.09) (R94.09) Encounter for medication counseling (W85.49) (Z71.89) Encounter to discuss test results (V65.49) (Z71.2) Never a smoker Personal history of COVID-19 (V12.09) (Z86.16) Class 1 obesity with body mass index (BMI) of 32.0 to 32.9 in adult (278.00,V85.32) (E66.9,Z68.32) Orders Class 1 obesity with body mass index (BMI) of 32.0 to 32.9 in adult Healthy Weight Tips; Status:Complete; Done: [id number] SocHx: Never a smoker Tobacco Use Screening; Status:Complete; Done: [id number] Patient Instructions Please bring all medicines, vitamins, [...] she did get a second opinion in [place], and no change in medication was suggested [...] sinus sometime (more content not included)... Normal [facility] Tobacco Screening.on 022 Tobacco use status CPHS b) No -[facility] 250 DO Work Phone: Cardiovasc Arrhythmia Result son 07-31-2022 Cardiovasc Arrhythmia Results Reason For Visit MADYSON is here for the application of a [employer] monitor. Ordering Physician: Dr. Maza Diagnosis: abn TTT, dyspnea, syncope, autonomic orthostatic hypotension [facility] equipment agreement signed. MADYSON understands monitor is to be returned on: 08/14/22 Monitor number [id number] applied. Procedure Date I received for dictation [...] MD; Aug 28 2022 10:26AM EST Normal [employer] Office Visit (Cardiology)on 07-21-2022 Follow-up visit Diagnoses/Problems [...] heart murmur and has been transferred to [place] [facility] There is no family history of SIDS, [...] cardiac data (more content not included)... Normal [employer] Tobacco Screening.on 022 Fall risk assessment b) One or more fall s in the last year [facility] Work Phone: Tobacco use status [facility] b) No [facility] DO Work Phone: Office Visit (Cardiology)on [...] Confirmed - N/A AMA Intake updated by [facility] on 2022-07-11 22:02 New Recipient: Annalee Maza Appointment Date: 2022-07-21 07:20 Autonomic orthostatic hypotension, Syncope, unspecified syncope type Changed: From To Midodrine HCl - 10 MG Oral Tablet TAKE 1 TABLET 3 TIMES DAILY Class 1 obesity with body mass index (BMI) of 31.0 to 31.9 in adult Avoid getting up or changing positions quickly.; Status:Complete; Done: [id number] Healthy Weight Tips; Status:Complete; Done: [id number] Some eating tips that can help you lose weight.; Status:Complete; Done: [id number] Dyspnea (786.09) (R06.00) Class 1 obesity with [...] from 6 (more content not included)... Normal [employer] Tobacco Screening.on 022 Tobacco use status HS b) No [facility] 250 DO Work Phone: COVID CepheidOrdered By: Daniele Pearce on 06-01-2022 SARS-CoV-2 (COVID-19) Ab IA Ql Negative Negative [facility] Comment on above: This is a duplicate [employer] CoV-2/Flu/RSV Plus RNA by RT-PCR result to be used for statistical tracking purpose only. SARS-CoV-2 (COVID-19) RNA PERFECTO+probe Ql (Unsp spec) [facility] Office Visit (Cardiology)on 05-18-2022 Follow-up visit [...] in adult Healthy Weight Tips; Status:Complete; Done: [id number] Some eating tips that can help you lose weight.; Status:Complete; Done: [id number] Dyspnea, Syncope, unspecified syncope type Urine Test; Status:Active - Retrospective By Protocol Authorization; Requested for:[id number]; Palpitation Start: Atenolol 25 MG Oral Tablet; TAKE 1 TABLET DAILY Syncope, unspecified syncope type Tilt Table; Status:Hold For - Scheduling,Retrospective By Protocol Authorization; Requested for:[id number]; Patient Instructions Please bring all medicines, vitamins, [...] walking to the bathroom. She will see guidance director in the near future, she had her pulmonary function test which I reviewed, there is concern for chronic asthma, but no reactive airway disease. She has 3 dogs that she had, and 1 cat at home. She is not orthostatic. She is feeling palpitations quite a bit. Results of the pulmonary function test and a Micah of Suda was reviewed. Also reviewed stress test and [...] 3.5 c (more content not included)... Normal [employer] Tobacco Screening.on 022 Tobacco use status CPHS b) No [facility] 250 DO Work Phone: No Panel Informationon 05-03 [facility] 250 DO Work Phone: [facility] DO Work Phone: Cardiovasc Arrhythmia Result son 03-28-2022 Cardiovasc Arrhythmia Results Reason For Visit Event Monitor: MADYSON is here for the application of a 30 day event monitor in office., Diagnosis: Palps, Dyspnea, Chest pain Ordering Physician: Enrollment sent to: [facility] Monitor number [id number] applied. Holter monitor printed and placed on Dr. Melodie Alcaraz MD desk to dictate. Procedure This is a 21-year-old with palpitations. Micah of Hearts was done for 30 days. Duration of monitoring was from 03 28 20-04/27/2022. During this timeframe there were 39 patient [...] (R06.00) Palpitation (785.1) (R00.2) Future Appointments Date/TimeProviderSpecialt ySite 05/03/2022 10:00 AMMaría Elena Freire MDCardiologySurgery [facility] 05/18/2022 09:15 Melodie Sylvester MDCardiology703 [facility] [address] 250 DO Signatures Electronically signed by : Melodie Alcaraz MD; May 01 2022 7:56PM EST (Author) Normal [employer] Laboratory - Chemistry and C hemistry - challengeOrdered By: Melodie Alcaraz on 03-24-2022 Natriuretic peptide B (Bld) [Mass/Vol] 27.0 pg/mL 5-100 [facility] No Panel InformationOrdered By: Melodie Alcaraz on 03-24-2022 D-Dimer Quantitative (PE/DVT) < 200 ng/mL 0-243 [facility] Comment on above: The reference range [...] to co-morbid conditions. No Panel Informationon 03-24 0.70\\S\\0.70 Normal 0.45-5.33 [facility] 250 DO Work Phone: Comment on above: PERFORMED BY:[facility] [place] [id number] MEDICAL DIRECTOROFE ELLIS M.D. 0.99\\S\\0.99 Normal 0.61-1.12 [facility] 250 DO Work Phone: 27.0\\S\\27.0 Normal 5-100 [facility] DO Work Phone: Comment on above: PERFORMED BY:[place] [address] [place] [id number] MEDICAL DIRECTOROFE ELLIS M.D. < 200 Normal 0-243 [facility] DO Work Phone: Comment [...] in hospitalized patients due to co-morbid conditions.PERFORMED BY:[place] [address] [place] [id number] MEDICAL JACQUES ELLIS M.D. TSH DL <= 0.005 mIU/L QnOrde red By: Melodie Alcaraz on 03-24-2022 TSH Qn 0.70 m[IU]/L 0.45-5.33 [facility] Thyroxine (T4) free [Mass/vo lume] in Serum or PlasmaOrdered By: Melodie Alcaraz on 03-24-2022 Free T4 [Mass/Vol] 0.99 ng/dL 0.61-1.12 [facility] Office Visit (Cardiology)on 03-23-2022 Follow-up visit [...] Patient Instructions By signing my name below, I, Margarita Bernstein LPN, Scribe, attest that this documentation has been prepared under the direction and in the presence of Dr. Melodie Alcaraz MD. All medical record entries made by the Christen were at my direction and personally dictated [...] twin brother had to be taken to [facility], and has history of heart murmur. Patient [...] frequently pic (more content not included)... Normal [employer] PHQ-2 VITALSon 03-23-2022 Adult depression screening assessment No [facility] 250 DO Work Phone: Fall risk assessment c) Not medically indicated [facility] 250 DO Work Phone: Tobacco use status CPHS b) No [facility] 250 DO Work Phone: ARMANI BY IFA WITH REFLEXon Nuclear Ab IF (S) [Titer] Negative Negative [facility] CCP ANTIBODY IGGon Cyclic citrullinated peptide IgG Qn <15 <20 Units [facility] Cyclic citrullinated peptide IgG Qnon 01-26-2022 CCP Antibody IgG Qualitative Negative Negative [facility] Nuclear Ab IA Ql (S)on 01-26 [facility] by EIA, Qual Negative Negative [facility] ARMANI BY IFA WITH REFLEXon Nuclear Ab IF (S) [Titer] Negative Normal Negative [facility] Comment on above: Order Comment: Speci men Type: BLOOD SPECIMEN Ordering Facility: [facility] Address: [address] [place] [address] Result Comment: Anti -nuclear antibody test is used as an aid in diagnosis of systemic autoimmune diseases. Where positive and clinically warranted, follow-up using disease-specific testing is recommended. Low positive titers are not uncommon with advanced age, certain chronic infections, and malignancies among others. Test methodology: Indirect fluorescence immunoassay (IFA) using HEp-2 cells. Performed By: #### A NAIFR #### [facility] CLIA [id number] [address] [place] [id number] C-REACTIVE PROTEIN (CRP)on 0 01-25-2022 CRP [Mass/Vol] 0.4 mg/dL <0.9 mg/dL [facility] C1 ESTERASE INHIBITon 2021 C1 ESTERASE INHIBIT 26 mg/dL Normal 21-38 [facility] Comment on above: Order Comment: Specyelitza oseguera Type: BLOOD SPECIMEN Ordering Facility: [facility] Address: [address] [place] [address] Result Comment: Perf ormed By: [facility] [address] [id number] Soaker Hides: Brittni Moscoso MD Performed By: #### 1 6570-4, 99982-9, 39434-6, 06472-4, 60291-0, 58403-9, 20177-7, 46976-7 #### [facility] CLIA [id number] [address] [place] [address] C2 COMPLEMENT BLDon 01-26-20 22 C2 COMPLEMENT 2.4 mg/dL Normal 1.6-4.0 [facility] Comment on above: Order Comment: Speci ana rosa Type: BLOOD SPECIMEN Ordering Facility: [facility] Address: [address] [place] [address] Result Comment: INTE RPRETIVE INFORMATION: Complement Component 2 Decreased C2 levels may be associated with increased susceptibility to infection (especially pneumococcal infections), systemic lupus erythematosus-like disease, rashes, arthritis and nephritis, and with C1-Esterase deficiency. Increased C2 levels are associated with the acute phase response. This test was developed and its performance characteristics determined by [facility]. It has not been cleared or approved by the [place] Food and Drug Administration. This test was performed in a CLIA certified laboratory and is intended for clinical purposes. Performed By: [facility] [address] [place] [address] Soaker Hides: Brittni Moscoso MD Performed By: #### 1 6570-4, 63540-9, 28812-3, 91337-6, 00923-7, 55652-7, 41937-9, 08262-1 #### [facility] CLIA [id number] [address] [place], [place] [address] [place] C3 COMPLEMENT BLDon 01-26-20 22 Complement C3 [Mass/Vol] 130 mg/dL 86 - 166 mg/dL [facility] C3 SerPl-mCncon 01-25-2022 Complement C3 [Mass/Vol] 130 mg/dL Normal 86-166 [facility] Comment on above: Order Comment: Speci men Type: BLOOD SPECIMEN Ordering Facility: [facility] Address: [address] [place] [address] Performed By: #### 1 6570-4, 55317-9, 77674-7, 79764-5, 64893-8, 19086-6, 29303-8, 79402-4 #### [facility] CLIA [id number] [address] [place] [address] [place] C4 COMPLEMENT BLDon 01-26-20 22 Complement C4 [Mass/Vol] 30 mg/dL 13 - 46 mg/dL [facility] C4 SerPl-mCncon 01-25-2022 Complement C4 [Mass/Vol] 30 mg/dL Normal 13-46 [facility] Comment on above: Order Comment: Speci men Type: BLOOD SPECIMEN Ordering Facility: [facility] Address: [address] [place] [address] Performed By: #### 1 6570-4, 17303-5, 98658-0, 13483-6, 83730-4, 46336-6, 21780-8, 93645-7 #### [facility] CLIA [id number] [address] [place] [address] [place] CBC panel Auto (Bld)on 01-25 Erythrocyte distribution width (RBC) [Ratio] 12.1 % Normal 11.5-15.0 [facility] Comment on above: Order Comment: Speci men Type: BLOOD SPECIMEN Ordering Facility: [facility] Address: [address] [place] [address] Performed By: #### 1 6570-4, 04123-7, 87346-9, 83199-0, 22092-6, 03036-6, 85842-1, 12344-0 #### [facility] CLIA [id number] [address] [place] [address] [place] Hematocrit (Bld) [Volume fraction] 42.6 % Normal 36.0-46.0 [facility] Comment on above: Order Comment: Speci men Type: BLOOD SPECIMEN Ordering Facility: [facility] Address: [address] [place] [address] Performed By: #### 1 6570-4, 02679-8, 09884-5, 85548-8, 73159-5, 28422-0, 33575-0, 43145-2 #### [facility] CLIA [id number] [address] [place] [address] [place] Hemoglobin (Bld) [Mass/Vol] 13.8 g/dL Normal 11.5-15.5 [facility] Comment on above: Order Comment: Speci men Type: BLOOD SPECIMEN Ordering Facility: [facility] Address: [address] [place] [address] Performed By: #### 1 6570-4, 37625-3, 32420-4, 03301-4, 21500-9, 06614-5, 56362-2, 67245-0 #### [facility] CLIA [id number] [address] [place] [address] [place] MCH (RBC) [Entitic mass] 28.3 pg Normal 26.0-34.0 [facility] Comment on above: Order Comment: Speci men Type: BLOOD SPECIMEN Ordering Facility: [facility] Address: [address] [place] [address] Performed By: #### 1 6570-4, 49502-3, 83817-1, 13742-4, 40551-3, 30133-1, 69655-7, 82408-0 #### [facility] CLIA [id number] [address] [place] [address] [place] MCHC (RBC) [Mass/Vol] 32.4 g/dL Normal 30.5-36.0 [facility] Comment on above: Order Comment: Speci men Type: BLOOD SPECIMEN Ordering Facility: [facility] Address: [address] [place] [address] Performed By: #### 1 6570-4, 71739-4, 97612-5, 25306-5, 65258-8, 69100-2, 72768-2, 40256-3 #### [facility] CLIA [id number] [address] [place] [address] [place] MCV (RBC) [Entitic vol] 87.3 fL Normal 80.0-100.0 [facility] Comment on above: Order Comment: Speci men Type: BLOOD SPECIMEN Ordering Facility: [facility] Address: [address] [place] [address] Performed By: #### 1 6570-4, 30948-6, 19141-7, 60616-8, 55158-3, 39869-6, 33542-6, 74494-7 #### [facility] CLIA [id number] [address] [place] [address] [place] Nucleated RBC (Bld) [#/Vol] 10*3/uL Normal <0.01 [facility] Comment on above: Order Comment: Speci men Type: BLOOD SPECIMEN Ordering Facility: [facility] Address: [address] [place], [place] [address] Performed By: #### 1 6570-4, 18554-0, 12551-0, 00203-3, 07226-5, 70143-0, 44272-4, 22438-3 #### [facility] CLIA [id number] [address] [place] [address] [place] Platelet mean volume (Bld) [Entitic vol] 10.3 fL Normal 9.0-12.7 [facility] Comment on above: Order Comment: Speci men Type: BLOOD SPECIMEN Ordering Facility: [facility] Address: [address] [place], [place] [address] Performed By: #### 1 6570-4, 52317-6, 69017-7, 90805-6, 71014-7, 05338-8, 18984-1, 68611-3 #### [facility] CLIA [id number] [address] [place] [address] [place] Platelets (Bld) [#/Vol] 213 10*3/uL Normal 150-400 [facility] Comment on above: Order Comment: Speci men Type: BLOOD SPECIMEN Ordering Facility: [facility] Address: [address] [place] [address] Performed By: #### 1 6570-4, 65690-8, 93422-5, 04100-2, 48475-5, 86753-2, 74607-8, 95911-7 #### [facility] CLIA [id number] [address] [place] [address] [place] RBC (Bld) [#/Vol] 4.88 10*6/uL Normal 3.90-5.20 [facility] Comment on above: Order Comment: Speci men Type: BLOOD SPECIMEN Ordering Facility: [facility] Address: [address] [place] [address] Performed By: #### 1 6570-4, 54181-5, 48968-7, 03381-3, 75185-9, 73851-1, 06997-1, 32298-2 #### [facility] CLIA [id number] [address] [place] [address] [place] WBC (Bld) [#/Vol] 4.77 10*3/uL Normal 3.70-11.00 [facility] Comment on above: Order Comment: Speci men Type: BLOOD SPECIMEN Ordering Facility: [facility] Address: [address] [place] [address] Performed By: #### 1 6570-4, 00742-0, 16182-7, 01165-6, 59792-7, 62645-7, 78056-7, 84863-1 #### [facility] CLIA [id number] [address] [place] [address] Erythrocyte distribution width (RBC) [Ratio] 12.1 % 11.5 - 15.0 % [facility] Hematocrit (Bld) [Volume fraction] 42.6 % 36.0 - 46.0 % [facility] Hemoglobin (Bld) [Mass/Vol] 13.8 g/dL 11.5 - 15.5 g/dL [facility] MCH (RBC) [Entitic mass] 28.3 pg 26.0 - 34.0 pg [facility] MCHC (RBC) [Mass/Vol] 32.4 g/dL 30.5 - 36.0 g/dL [facility] MCV (RBC) [Entitic vol] 87.3 fL 80.0 - 100.0 fL [facility] Nucleated RBC (Bld) [#/Vol] 10*3/uL <0.01 k/uL [facility] Platelet mean volume (Bld) [Entitic vol] 10.3 fL 9.0 - 12.7 fL [facility] Platelets (Bld) [#/Vol] 213 10*3/uL 150 - 400 k/uL [facility] RBC (Bld) [#/Vol] 4.88 10*6/uL 3.90 - 5.20 m/uL [facility] WBC (Bld) [#/Vol] 4.77 10*3/uL 3.70 - 11.00 k/uL [facility] CRP SerPl-mCncon 01-25-2022 CRP [Mass/Vol] 0.4 mg/dL Normal <0.9 [facility] Comment on above: Order Comment: Speci men Type: BLOOD SPECIMEN Ordering Facility: [facility] Address: [address] [place] [address] Performed By: #### 1 6570-4, 21128-0, 02611-0, 00987-4, 69283-1, 02128-4, 69243-4, 95212-0 #### [facility] CLIA [id number] [address] [place] [address] [place] Centromere Ab IF Ql (S)on Centromere Ab Qn (S) <0.2 Normal <1.0 [facility] Comment on above: Order Comment: Speci men Type: BLOOD SPECIMEN Ordering Facility: [facility] Address: [address] [place] [address] Result Comment: Anti -centromere antibody is used as in aid in diagnosis of systemic sclerosis. Clinical correlation is required. Test Methodology: Multiplex flow immunoassay. Performed By: #### 1 6570-4, 70857-1, 72258-0, 01047-0, 77554-2, 36404-4, 32321-3, 23645-6 #### [facility] CLIA [id number] [address] [place] [address] STATES [place] [facility] CENTROMERE AB QUAL Negative Normal Negative [facility] Comment on above: Order Comment: Speci men Type: BLOOD SPECIMEN Ordering Facility: [facility] Address: [address] [place] [address] Performed By: #### 1 6570-4, 70262-4, 76371-8, 03578-1, 57451-8, 14959-2, 41336-5, 84946-4 #### [facility] CLIA [id number] [address] [place] [address] [place] Chromatin Ab Qnon 01-25-2022 CHROMATIN AB QUAL Negative Normal Negative [facility] Comment on above: Order Comment: Speci men Type: BLOOD SPECIMEN Ordering Facility: [facility] Address: [address] [place] [address] Performed By: #### 1 6570-4, 05461-1, 68050-6, 74214-1, 00643-1, 54492-5, 33148-3, 26492-5 #### [facility] CLIA [id number] [address] [place] [address] [place] Chromatin Ab SerPl-aCncon Chromatin Ab Qn <0.2 Normal <1.0 [facility] Comment on above: Order Comment: Speci men Type: BLOOD SPECIMEN Ordering Facility: [facility] Address: [address] [place] [phone] Result Comment: Test Methodology: Multiplex flow immunoassay. Performed By: #### 1 6570-4, 86266-2, 44093-5, 97766-4, 79012-2, 02598-7, 29747-1, 98745-5 #### [facility] CLIA [id number] [address] [place], [place] [address] [address] OF [facility] Comprehensive metabolic 2000 panelon 01-25-2022 Albumin [Mass/Vol] 4.5 g/dL 3.9 - 4.9 g/dL [facility] ALP [Catalytic activity/Vol] 65 U/L 34 - 123 U/L [facility] ALT [Catalytic activity/Vol] 14 U/L 7 - 38 U/L [facility] Anion gap [Moles/Vol] 11 mmol/L 9 - 18 mmol/L [facility] AST [Catalytic activity/Vol] 14 U/L 13 - 35 U/L [facility] Bilirubin [Mass/Vol] 0.3 mg/dL 0.2 - 1 .3 mg/dL [facility] Calcium [Mass/Vol] 9.5 mg/dL 8.5 - 10. 2 mg/dL [facility] Chloride [Moles/Vol] 105 mmol/L 97 - 10 5 mmol/L [facility] CO2 [Moles/Vol] 26 mmol/L 22 - 30 mmol/L [facility] Creatinine [Mass/Vol] 0.71 mg/dL 0.58 - 0.96 mg/dL [facility] Estimated Glomerular Filtration Rate 125 mL/min/1.73m >=60 mL/min/1.7 3m [facility] Glucose [Mass/Vol] 94 mg/dL 74 - 99 mg/dL [facility] Potassium [Moles/Vol] 4.6 mmol/L 3.7 - 5.1 mmol/L [facility] Protein [Mass/Vol] 7.2 g/dL 6.3 - 8.0 g/dL [facility] Sodium [Moles/Vol] 142 mmol/L 136 - 144 mmol/L [facility] Urea nitrogen [Mass/Vol] 8 mg/dL 7 - 21 mg/dL [facility] Albumin [Mass/Vol] 4.5 g/dL Normal 3.9-4.9 [facility] Comment on above: Order Comment: Speci men Type: BLOOD SPECIMEN Ordering Facility: [facility] Address: [address] [place] [address] Performed By: #### 1 6570-4, 13671-0, 29124-9, 11897-0, 53911-1, 72086-8, 38865-0, 51592-9 #### [facility] CLIA [id number] [address] [place] [address] [place] ALP [Catalytic activity/Vol] 65 U/L Normal 34-123 [facility] Comment on above: Order Comment: Speci men Type: BLOOD SPECIMEN Ordering Facility: [facility] Address: [address] [place] [address] Performed By: #### 1 6570-4, 99749-7, 44916-0, 88452-4, 64443-8, 85516-7, 46636-8, 42101-5 #### [facility] CLIA [id number] [address] [place] [address] [place] ALT [Catalytic activity/Vol] 14 U/L Normal 7-38 [facility] Comment on above: Order Comment: Speci men Type: BLOOD SPECIMEN Ordering Facility: [facility] Address: [address] [place] [address] Performed By: #### 1 6570-4, 73024-3, 43538-4, 25539-4, 68725-6, 22003-4, 75540-4, 35378-1 #### [facility] CLIA [id number] [address] [place] [address] [place] Anion gap [Moles/Vol] 11 mmol/L Normal 9-18 [facility] Comment on above: Order Comment: Speci men Type: BLOOD SPECIMEN Ordering Facility: [facility] Address: [address] [place] [address] Performed By: #### 1 6570-4, 85380-2, 03550-8, 39214-3, 37538-1, 89545-4, 71417-1, 42561-2 #### [facility] CLIA [id number] [address] [place] [address] [place] AST [Catalytic activity/Vol] 14 U/L Normal 13-35 [facility] Comment on above: Order Comment: Speci men Type: BLOOD SPECIMEN Ordering Facility: [facility] Address: [address] [place] [address] Performed By: #### 1 6570-4, 60293-3, 20936-2, 69267-9, 19154-2, 44636-6, 57573-0, 87345-8 #### [facility] CLIA [id number] [address] [place] [address] [place] Bilirubin [Mass/Vol] 0.3 mg/dL Normal 0.2-1.3 [facility] Comment on above: Order Comment: Speci men Type: BLOOD SPECIMEN Ordering Facility: [facility] Address: [address] [place] [address] Performed By: #### 1 6570-4, 48857-8, 04166-4, 45763-6, 23974-0, 34714-0, 70575-9, 81032-9 #### [facility] CLIA [id number] [address] [place] [address] [place] Calcium [Mass/Vol] 9.5 mg/dL Normal 8.5-10.2 [facility] Comment on above: Order Comment: Speci men Type: BLOOD SPECIMEN Ordering Facility: [facility] Address: [address] [place] [address] Performed By: #### 1 6570-4, 53058-5, 03643-1, 98543-4, 46757-9, 72397-2, 70152-6, 33666-4 #### [facility] CLIA [id number] [address] [place] [address] [place] Chloride [Moles/Vol] 105 mmol/L Normal 97-105 [facility] Comment on above: Order Comment: Speci men Type: BLOOD SPECIMEN Ordering Facility: [facility] Address: [address] [place] [address] Performed By: #### 1 6570-4, 37787-3, 83858-6, 57981-3, 02708-4, 30401-0, 32527-1, 04112-9 #### [facility] CLIA [id number] [address] [place] [address] [place] CO2 [Moles/Vol] 26 mmol/L Normal 22-30 [facility] Comment on above: Order Comment: Speci men Type: BLOOD SPECIMEN Ordering Facility: [facility] Address: [address] [place] [address] Performed By: #### 1 6570-4, 28398-8, 02104-2, 61975-4, 89568-3, 88033-9, 81783-5, 55085-8 #### [facility] CLIA [id number] [address] [place] [address] [place] Creatinine [Mass/Vol] 0.71 mg/dL Normal 0.58-0.96 [facility] Comment on above: Order Comment: Speci men Type: BLOOD SPECIMEN Ordering Facility: [facility] Address: [address] [place] [address] Performed By: #### 1 6570-4, 32159-0, 76866-2, 15183-2, 58524-3, 97733-3, 90723-7, 19966-3 #### [facility] CLIA [id number] [address] [place] [address] [place] ESTIMATED GLOMERULAR FILTRATION RATE 125 mL/min/1.73m??? Normal >=60 [facility] Comment on above: Order Comment: Speci men Type: BLOOD SPECIMEN Ordering Facility: [facility] Address: [address] [place] [address] Result Comment: Francesca mated Glomerular Filtration Rate [...] actual GFR. Performed By: #### 1 6570-4, 93785-3, 68442-5, 64938-1, 01862-1, 26377-1, 25781-1, 58901-8 #### [facility] CLIA [id number] [address] [place], [place] [address] [place] Glucose [Mass/Vol] 94 mg/dL Normal 74-99 [facility] Comment on above: Order Comment: Speci men Type: BLOOD SPECIMEN Ordering Facility: [facility] Address: [address] [place] [phone] Result Comment: The [place] Diabetes Association (ADA) provides guidance for cutoff [...] Standards of Medical Care in Diabetes 2016, [place] [employer]. Diabetes Care. 2016.39(Suppl 1). Performed By: #### 1 6570-4, 64828-5, 78642-2, 54021-5, 01939-9, 97634-9, 80541-9, 11393-9 #### [facility] CLIA [id number] [address] [place] [address] [place] Potassium [Moles/Vol] 4.6 mmol/L Normal 3.7-5.1 [facility] Comment on above: Order Comment: Speci men Type: BLOOD SPECIMEN Ordering Facility: [facility] Address: [address] [place] [address] Performed By: #### 1 6570-4, 67964-8, 20512-1, 73030-3, 72316-2, 35487-2, 09100-2, 61889-3 #### [facility] CLIA [id number] [address] [place] [address] [place] Protein [Mass/Vol] 7.2 g/dL Normal 6.3-8.0 [facility] Comment on above: Order Comment: Speci men Type: BLOOD SPECIMEN Ordering Facility: [facility] Address: [address] [place] [address] Performed By: #### 1 6570-4, 08448-6, 08405-2, 55932-5, 90352-4, 66852-9, 81733-9, 87435-1 #### [facility] [facility] CLIA [id number] [address] [place] [address] [place] Sodium [Moles/Vol] 142 mmol/L Normal 136-144 [facility] Comment on above: Order Comment: Speci men Type: BLOOD SPECIMEN Ordering Facility: [facility] Address: [address] [place] [address] Performed By: #### 1 6570-4, 97300-1, 59805-4, 68384-3, 79092-4, 56499-7, 50446-1, 96078-7 #### [facility] CLIA [id number] [address] [place] [address] [place] Urea nitrogen [Mass/Vol] 8 mg/dL Normal 7-21 [facility] Comment on above: Order Comment: Speci men Type: BLOOD SPECIMEN Ordering Facility: [facility] Address: [address] [place] [address] Performed By: #### 1 6570-4, 05200-5, 85407-2, 62236-9, 89153-5, 33149-1, 52375-5, 82029-0 #### [facility] CLIA [id number] [address] [place] [address] [place] Cyclic citrullinated peptide IgG Qnon 01-25-2022 CCP ANTIBODY IGG QUALITATIVE Negative Normal Negative [facility] Comment on above: Order Comment: Speci men Type: BLOOD SPECIMEN Ordering Facility: [facility] Address: [address] [place] [address] Performed By: #### 1 6570-4, 12652-2, 00983-9, 51931-2, 78339-8, 81435-1, 48400-5, 18591-5 #### [facility] CLIA [id number] [address] [place] [address] [place] Jo1 Ab Ser-aCncon 2021 Yuly-1 extractable nuclear Ab Qn (S) <0.2 Normal <1.0 [facility] Comment on above: Order Comment: Speci men Type: BLOOD SPECIMEN Ordering Facility: [facility] Address: [address] [place] [address] Performed By: #### 1 6570-4, 59585-4, 75524-8, 61653-6, 68104-1, 38847-5, 17657-8, 31199-4 #### [facility] CLIA [id number] [address] [place] [address] [place] REPLENISHMENT ANALYST Ab Ser-aCncon 2021 Ribonucleoprotein extractable nuclear Ab Qn (S) <0.2 Normal <1.0 [facility] Comment on above: Order Comment: Speci men Type: BLOOD SPECIMEN Ordering Facility: [facility] Address: [address] [place] [address] Performed By: #### 1 6570-4, 24525-3, 26197-8, 86240-5, 97889-8, 11630-3, 81070-5, 85712-2 #### [facility] CLIA [id number] [address] [place] [address] [place] SM IgG Ser-aCncon 2021 Cota extractable nuclear IgG Qn (S) <0.2 Normal <1.0 [facility] Comment on above: Order Comment: Speci men Type: BLOOD SPECIMEN Ordering Facility: [facility] Address: [address] [place] [address] Performed By: #### 1 6570-4, 63972-5, 17937-0, 90687-1, 68981-9, 59254-9, 74111-1, 42075-8 #### [facility] CLIA [id number] [address] [place] [address] [place] SS-A Ab Ser-aCncon 01-25 Sjogrens syndrome-A extractable nuclear Ab Qn (S) <0.2 Normal <1.0 [facility] Comment on above: Order Comment: Speci ana rosa Type: BLOOD SPECIMEN Ordering Facility: [facility] Address: [address] [place] [address] Result Comment: Test Methodology: Multiplex flow immunoassay. Performed By: #### 1 6570-4, 63936-6, 60520-4, 68902-7, 51412-4, 69752-7, 20926-4, 64755-7 #### [facility] CLIA [id number] [address] [place] [address] [place] SS-B Ab Ser-aCncon 01-25 Sjogrens syndrome-B extractable nuclear Ab Qn (S) <0.2 Normal <1.0 [facility] Comment on above: Order Comment: Speci men Type: BLOOD SPECIMEN Ordering Facility: [facility] Address: [address] [place] [address] Result Comment: Anti -SSB (anti-La) antibody is used as an aid in diagnosis of a variety of systemic autoimmune diseases, especially for Sjogren's syndrome and systemic lupus erythematosus. Clinical correlation is required. Test Methodology: Multiplex flow immunoassay. Performed By: #### 1 6570-4, 97459-3, 42215-9, 53754-9, 88167-2, 53240-1, 93907-2, 81520-6 #### [facility] CLIA [id number] [address] [place] [address] [place] ESR Westergren method (Bld) [Velocity]on 01-25-2022 ESR (Bld) [Velocity] 2 mm/h 0 - 20 mm/hr [facility] ESR (Bld) [Velocity] 2 mm/h Normal 0-20 [facility] Comment on above: Order Comment: Jose Carlos oseguera Type: BLOOD SPECIMEN Ordering Facility: [facility] Address: [address] [place] [address] Performed By: #### 1 6570-4, 87280-7, 38580-8, 89798-8, 97621-2, 60538-7, 69048-4, 36142-6 #### [facility] CLIA [id number] [address] [place] [address] [place] HBV core Ab Ser Qlon 022 HBV core Ab Ql (S) Negative Normal Negative [facility] Comment on above: Order Comment: Jose Carlos oseguera Type: BLOOD SPECIMEN Ordering Facility: [facility] Address: [address] [place] [address] Result Comment: No e vidence of current or past infection with Hepatitis B virus. Should recent infection be suspected, repeat testing may be considered 3-4 weeks after this draw. Performed By: #### 1 6570-4, 64530-2, 39999-0, 46607-6, 02993-0, 97540-9, 72727-2, 18107-2 #### [facility] CLIA [id number] [address] [place] [address] [place] HBV surface Ab IA Ql (S)on 0 01-25-2022 HBV surface Ag Ql (S) Negative Normal Negative [facility] Comment on above: Order Comment: Speci ana rosa Type: BLOOD SPECIMEN Ordering Facility: [facility] Address: [address] [place] [address] Performed By: #### 1 6570-4, 03652-7, 03365-1, 30267-8, 69134-1, 90889-3, 38686-0, 26163-1 #### [facility] CLIA [id number] [address] [place] [address] [place] HBV surface Ab Ser Qlon HBV surface Ab Ql (S) Negative Normal Negative [facility] Comment on above: Order Comment: Horacioyelitza oseguera Type: BLOOD SPECIMEN Ordering Facility: [facility] Address: [address] [place] [address] Result Comment: No e vidence of current or past infection with Hepatitis B virus. Should recent infection be suspected, repeat testing may be considered 3-4 weeks after this draw. Performed By: #### 1 6570-4, 24713-8, 17798-1, 73068-7, 56072-0, 33005-7, 11760-3, 98657-6 #### [facility] CLIA [id number] [address] [place] [address] [place] HCV Ab Ser Qlon 01-25-2022 HCV Ab Ql (S) Negative Normal Negative [facility] Comment on above: Order Comment: Horacioyelitza oseguera Type: BLOOD SPECIMEN Ordering Facility: [facility] Address: [address] [place] [address] Result Comment: The result suggests no evidence of active infection with Hepatitis C virus. Should recent infection be suspected, repeat testing may be considered 4-6 weeks after this draw. Performed By: #### 1 6570-4, 49285-9, 72474-7, 19487-5, 77292-8, 29063-1, 15222-9, 12431-1 #### [facility] CLIA [id number] [address] [place] [address] [place] Yuly-1 extractable nuclear Ab Qn (S)on 01-25-2022 YULY 1 ANTIBODY QUAL Negative Normal Negative [facility] Comment on above: Order Comment: Jose Carlos oseguera Type: BLOOD SPECIMEN Ordering Facility: [facility] Address: [address] [place] [address] Result Comment: Anti -YULY-1 antibody is used as an aid in diagnosis of polymyositis and dermatomyositis especially with pulmonary involvement. A negative result cannot rule out polymyositis or dermatomyositis. Clinical correlation is required. Test Methodology: Multiplex flow immunoassay. Performed By: #### 1 6570-4, 33302-7, 68489-3, 21338-3, 93523-4, 20979-1, 36091-7, 08126-2 #### [facility] CLIA [id number] [address] [place] [address] [place] Nuclear Ab IA Ql (S)on 01-25 [facility] EIA, QUAL Negative Normal Negative [facility] Comment on above: Order Comment: Jose Carlos oseguera Type: BLOOD SPECIMEN Ordering Facility: [facility] Address: [address] [place] [address] Result Comment: The qualitative antinuclear antibody screen test performed using enzyme immunoassay including the following antigens: dsDNA, histones, SS-A, SS-B, Sm, Sm/REPLENISHMENT ANALYST, Scl-70, Yuly-1, and centromeric antigens. Performed By: #### 1 6570-4, 05017-8, 07016-6, 77350-7, 71905-3, 03401-9, 87570-8, 74007-0 #### [facility] CLIA [id number] [address] [place] [address] [place] RHEUMATOID FACTOR BLon 01-25 Rheumatoid factor Qn [IU]/mL <16 IU/mL [facility] Rheumatoid factor Qn [IU]/mL Normal <16 [facility] Comment on above: Order Comment: Jose Carlos [facility] Type: BLOOD SPECIMEN Ordering Facility: [facility] Address: [address] [place] [address] Performed By: #### 1 6570-4, 31172-0, 38497-5, 32182-8, 69023-8, 89023-5, 79177-0, 31189-3 #### [facility] CLIA [id number] [address] [place] [address] [place] Ribonucleoprotein extractabl e nuclear Ab Qn (S)on 01-25-2022 ANTI-REPLENISHMENT ANALYST QUAL Negative Normal Negative [facility] Comment on above: Order Comment: Speci men Type: BLOOD SPECIMEN Ordering Facility: [facility] Address: [address] [place] [address] Performed By: #### 1 6570-4, 67901-1, 85129-6, 89597-5, 39354-4, 21107-4, 02869-9, 10977-8 #### [facility] CLIA [id number] [address] [place] [address] [place] RIBOSOMAL REPLENISHMENT ANALYST QUAL Negative Normal Negative [facility] Comment on above: Order Comment: Speci men Type: BLOOD SPECIMEN Ordering Facility: [facility] Address: [address] [place] [address] Result Comment: Anti -Ribosomal RNA (Ribosomal P) antibody is used as an aid in diagnosis of systemic autoimmune diseases especially systemic lupus erythematosus and mixed connective tissue disease. Cross-reactivity with Anti-cota antibody is not uncommon. Clinical correlation is required. Test Methodology: Multiplex flow immunoassay. Performed By: #### 1 6570-4, 45539-2, 33151-6, 97955-1, 66237-2, 39810-1, 59516-1, 56869-6 #### [facility] IA [id number] [address] [place] [address] [place] SCL-70 extractable nuclear I gG IA Qn (S)on 01-25-2022 SCLERODERMA AB QUAL Negative Normal Negative [facility] Comment on above: Order Comment: Speci men Type: BLOOD SPECIMEN Ordering Facility: [facility] Address: [address] [place] [address] Performed By: #### 1 6570-4, 59452-2, 31184-9, 46112-4, 34577-6, 11199-0, 53912-5, 03786-0 #### [facility] CLIA [id number] [address] [place] [address] [place] SCLERODERMA IGG AB <0.2 Normal <1.0 [facility] Comment on above: Order Comment: Speci men Type: BLOOD SPECIMEN Ordering Facility: [facility] Address: [address] [place] [address] Result Comment: Scl- 70/Scleroderma antibody test is used as an aid in diagnosis of systemic sclerosis especially the diffuse cutaneous form. A negative result cannot rule out systemic sclerosis. The final interpretation should consider clinical picture and other test results such as anti-centromere antibody. Test Methodology: Multiplex flow immunoassay. Performed By: #### 1 6570-4, 04866-2, 13518-7, 08901-8, 08962-8, 30004-5, 25234-7, 63482-2 #### [facility] CLIA [id number] [address] [place] [address] [place] Sjogrens syndrome-A extracta ble nuclear Ab Qn (S)on 01-25-2022 SSA ANTIBODY QUAL Negative Normal Negative [facility] Comment on above: Order Comment: Speci men Type: BLOOD SPECIMEN Ordering Facility: [facility] Address: [address] [place] [address] Performed By: #### 1 6570-4, 23337-3, 70431-2, 57076-0, 99495-3, 99140-9, 87267-7, 42574-8 #### [facility] CLIA [id number] [address] [place] [address] [place] Sjogrens syndrome-B extracta ble nuclear Ab Qn (S)on 01-25-2022 SSB ANTIBODY QUAL Negative Normal Negative [facility] Comment on above: Order Comment: Speci men Type: BLOOD SPECIMEN Ordering Facility: [facility] Address: [address] [place], [place] [id number] Performed By: #### 1 6570-4, 04401-1, 69875-1, 18974-0, 79399-3, 36282-3, 00781-8, 51679-3 #### [facility] CLIA [id number] [address] [place] [address] [place] Cota extractable nuclear Ig G Qn (S)on 01-25-2022 SM ANTIBODY QUAL Negative Normal Negative [facility] Comment on above: Order Comment: Speci men Type: BLOOD SPECIMEN Ordering Facility: [facility] Address: [address] [place] [address] Result Comment: Anti -Sm (Cota) antibody is used as an aid in diagnosis of systemic lupus erythematosus and its presence is associated with renal disease. A negative result cannot rule out systemic lupus erythematosus. Clinical correlation is required. Test Methodology: Multiplex flow immunoassay. Performed By: #### 1 6570-4, 16149-6, 87825-9, 00904-4, 24196-9, 55617-7, 96668-9, 71743-6 #### [facility] CLIA [id number] [address] [place] [address] [place] cCP IgG SerPl-aCncon 022 Cyclic citrullinated peptide IgG Qn <15 Normal <20 [facility] Comment on above: Order Comment: Speci men Type: BLOOD SPECIMEN Ordering Facility: [facility] Address: [address] [place] [address] Performed By: #### 1 6570-4, 66540-4, 00769-1, 52182-2, 98025-6, 41414-2, 57020-6, 57993-8 #### [facility] CLIA [id number] [address] [place] [address] [place] XR ankle LT min 3V*on 2021 XR ankle LT min 3V* [facility] niiu Other XR ankle LT min 3V* [facility] [employer] Other XR ankle LT min 3V* [facility] [employer] Other XR ankle LT min 3V* HANNY [place] [address] [employer] Other XR ankle LT min 3V* XRay Report [facility] [id number] | [employer] Other XR ankle LT min 3V* Signed [employer] Other XR ankle LT min 3V* Patient: Madyson Schmid MR#: [id number] [employer] Other XR ankle LT min 3V* : 2000 Acct:[id number] [employer] Other XR ankle LT min 3V* Age/Sex: 20 / F ADM Date: 10/10/21 [employer] Other XR ankle LT min 3V* Loc: XDUCLY Room: Ty pe: REG CLI [employer] Other XR ankle LT min 3V* Attending Dr: Christina GONZALEZ [employer] Other XR ankle LT min 3V* Ordering Provider: CARLOS Santos [employer] Other XR ankle LT min 3V* Date of Service: 10/10/21 [employer] Other XR ankle LT min 3V* XR/XR ankle LT min 3V*: Acute left ankle pain [employer] Other XR ankle LT min 3V* Copies to: CARLOS Beckman [employer] Other XR ankle LT min 3V* Left ankle 10/10/2021. [employer] Other XR ankle LT min 3V* CLINICAL DATA: Left ankle pain after twisting injury. [employer] Other XR ankle LT min 3V* FINDINGS: 3 views of the left ankle were obtained. [employer] Other XR ankle LT min 3V* No acute fracture or dislocation is identified. No other bony abnormality is seen. Anterolateral [employer] Other XR ankle LT min 3V* soft tissue swelling is noted. [employer] Other XR ankle LT min 3V* X R/XR ankle LT min 3V* [employer] Other XR ankle LT min 3V* IMPRESSION: Soft tis cody swelling. No acute bony abnormality. [employer] Other XR ankle LT min 3V* Impression dictated by: Erick Cueto Jr., M.D.10/10/2021 4:24 PM [employer] Other XR ankle LT min 3V* Dictation Location: [place] [address] [employer] Other XR ankle LT min 3V* Transcribed By: MIRELLA 10/10/21 1624 [employer] Other XR ankle LT min 3V* Dictated By: Erick Cueto Jr, MD 10/10/21 1621 [employer] Other XR ankle LT min 3V* Signed By: [employer] Other XR ankle LT min 3V* 10/10/21 1624 No rt [employer] | [employer] Other Vital Signs Date Time Vital Sign Value Performing Clinician Facility 07-03-2024 14:41-0400 Body mass index (BMI) [Ratio] 35.65 kg/m2 Flori TOLBERT Work Phone: [facility] [email or web address] 07-03-2024 14:41-0400 Body weight 97.18 kg Flori TOLBERT Work Phone: [facility] [email or web address] 07-03-2024 14:41-0400 Diastolic blood pressure 64 mm[Hg] Flori TOLBERT Work Phone: [facility] 07-03-2024 14:41-0400 Systolic blood pressure 116 mm[Hg] Flori Gil PA Work Phone: [facility] 11-30-2023 09:33-0500 Body height 165.1 cm Jyoti Dickey PA-C Work Phone: [facility] 11-30-2023 09:33-0500 Body weight 92.99 kg Jyoti Gallowayur PA-C Work Phone: [facility] 11-30-2023 09:33-0500 Diastolic blood pressure 79 mm[Hg] Jyoti Dickey PA-C Work Phone: [facility] 11-30-2023 09:33-0500 Heart rate 84 /min Jyoti Dickey PA-C Work Phone: [facility] 11-30-2023 09:33-0500 SaO2% (BldA) [Mass fraction] 96 % Jyoti Dickey PA-C Work Phone: [facility] 11-30-2023 09:33-0500 Systolic blood pressure 118 mm[Hg] Jyoti Dickey PA-C Work Phone: [facility] 06-13-2023 12:36-0400 Body height 165.1 cm Ibis Ellis Blas Work Phone: [facility] [employer] [address] DO Work Phone: 06-13-2023 12:36-0400 Body mass index (BMI) [Ratio] 33.28 kg/m2 Ibis Rhonda [employer] Work Phone: [facility] [employer] 600 DO Work Phone: 06-13-2023 12:36-0400 Body surface area Derived from formula 1.98 m2 Ibis Ellis Blas Work Phone: [facility] [employer] 600 DO Work Phone: 06-13-2023 12:36-0400 Body weight 90.72 kg Ibis A Blas Work Phone: [facility] 600 DO Work Phone: 06-13-2023 12:36-0400 Diastolic blood pressure 80 mm[Hg] Ibis A Blas Work Phone: [facility] 600 DO Work Phone: 06-13-2023 12:36-0400 Heart rate 76 /min Ibis A Blas Work Phone: [facility] 600 DO Work Phone: 06-13-2023 12:36-0400 Systolic blood pressure 116 mm[Hg] Ibis A Blas [facility] Work Phone: 06-08-2023 21:50-0400 Diastolic blood pressure 59 mm[Hg] 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 Blas Work Phone: [facility] 06-08-2023 21:50-0400 Heart rate 82 /min 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 Blas Work Phone: [facility] 06-08-2023 21:50-0400 Respiratory rate 18 /min 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 Blas Work Phone: [facility] 06-08-2023 21:50-0400 SaO2% (BldA) [Mass fraction] 99 % 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 Blas Work Phone: [facility] 06-08-2023 21:50-0400 Systolic blood pressure 115 mm[Hg] 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 Blas Work Phone: [facility] 06-08-2023 16:35-0400 Body height 165.1 cm 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 Blas Work Phone: [facility] 06-08-2023 16:35-0400 Body temperature 97.8 [degF] 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 Blas Work Phone: [facility] 06-08-2023 16:35-0400 Body weight 91.6 kg 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 Blas Work Phone: [facility] 12-28-2022 15:00-0400 Body weight 89.36 kg Irvin Hanna MD Work Phone: [facility] 12-28-2022 15:00-0400 Diastolic blood pressure 86 mm[Hg] Irvin Hanna MD Work Phone: [facility] 12-28-2022 15:00-0400 Heart rate 79 /min Irvin Hanna MD Work Phone: [facility] 12-28-2022 15:00-0400 Respiratory rate 16 /min Irvin Hanna MD Work Phone: [facility] 12-28-2022 15:00-0400 Systolic blood pressure 119 mm[Hg] Irvin Hanna MD Work Phone: [facility] 10-13-2022 09:35-0500 Body height 165.1 cm Ibis Rhonda Blas Work Phone: [facility] 320 DO Work Phone: 10-13-2022 09:35-0500 Body mass index (BMI) [Ratio] 33.45 kg/m2 Ibis Rhonda Blas Work Phone: [facility] 320 DO Work Phone: 10-13-2022 09:35-0500 Body surface area Derived from formula 1.98 m2 Ibis Rhonda Blas Work Phone: [facility] 320 DO Work Phone: 10-13-2022 09:35-0500 Body weight 91.17 kg Ibis Ellis Blas Work Phone: [facility] 320 DO Work Phone: 10-13-2022 09:35-0500 Diastolic blood pressure 70 mm[Hg] Ibis A Blas Work Phone: [facility] 320 DO Work Phone: 10-13-2022 09:35-0500 Heart rate 76 /min Ibis A Blas Work Phone: [facility] 320 DO Work Phone: 10-13-2022 09:35-0500 Systolic blood pressure 102 mm[Hg] Ibis A Blas Work Phone: [facility] 320 DO Work Phone: 09-11-2022 09:58-0500 Diastolic blood pressure 82 mm[Hg] Ibis A Blas Work Phone: [facility] 250 DO Work Phone: 09-11-2022 09:58-0500 Diastolic blood pressure 80 mm[Hg] Ibis A Blas Work Phone: [facility] 250 DO Work Phone: 09-11-2022 09:58-0500 Systolic blood pressure 112 mm[Hg] Ibis A Blas Work Phone: [facility] 250 DO Work Phone: 09-11-2022 09:58-0500 Systolic blood pressure 108 mm[Hg] Ibis A Blas Work Phone: [facility] 250 DO Work Phone: 09-11-2022 08:57-0500 Body height 165.1 cm Ibis A Blas Work Phone: [facility] 250 DO Work Phone: 09-11-2022 08:57-0500 Body mass index (BMI) [Ratio] 32.95 kg/m2 Ibis A Blas Work Phone: [facility] 250 DO Work Phone: 09-11-2022 08:57-0500 Body surface area Derived from formula 1.97 m2 Ibis A Blas Work Phone: [facility] 250 DO Work Phone: 09-11-2022 08:57-0500 Body weight 89.81 kg Ibis A Blas Work Phone: [facility] 250 DO Work Phone: 09-11-2022 08:57-0500 Diastolic blood pressure 68 mm[Hg] Ibis A Blas Work Phone: [facility] 250 DO Work Phone: 09-11-2022 08:57-0500 Heart rate 74 /min Ibis A Blas Work Phone: [facility] 250 DO Work Phone: 09-11-2022 08:57-0500 Systolic blood pressure 102 mm[Hg] Ibis A Blas Work Phone: [facility] 250 DO Work Phone: 07-31-2022 10:14-0500 Body weight 89.81 kg Irvin Hanna MD Work Phone: [facility] 07-31-2022 10:14-0500 Diastolic blood pressure 71 mm[Hg] Irvin Hanna MD Work Phone: [facility] 07-31-2022 10:14-0500 Heart rate 92 /min Irvin Hanna MD Work Phone: [facility] 07-31-2022 10:14-0500 Systolic blood pressure 109 mm[Hg] Irvin Hanna MD Work Phone: [facility] 07-21-2022 07:27-0400 Body height 165.1 cm Ibis A Blas Work Phone: [facility] 320 DO Work Phone: 07-21-2022 07:27-0400 Body mass index (BMI) [Ratio] 33.45 kg/m2 Ibis A Blas Work Phone: [facility] 320 DO Work Phone: 07-21-2022 07:27-0400 Body surface area Derived from formula 1.98 m2 Ibis A Blas Work Phone: [facility] 320 DO Work Phone: 07-21-2022 07:27-0400 Body weight 91.17 kg Ibis A Blas Work Phone: [facility] 320 DO Work Phone: 07-21-2022 07:27-0400 Diastolic blood pressure 72 mm[Hg] Ibis A Blas Work Phone: [facility] 320 DO Work Phone: 07-21-2022 07:27-0400 Heart rate 64 /min Ibis A Blas Work Phone: [facility] 320 DO Work Phone: 07-21-2022 07:27-0400 Systolic blood pressure 106 mm[Hg] Ibis A Blas Work Phone: [facility] 320 DO Work Phone: 07-10-2022 10:45-0400 Body height 165.1 cm Ibis A Blas Work Phone: [facility] 250 DO Work Phone: 07-10-2022 10:45-0400 Body mass index (BMI) [Ratio] 32.95 kg/m2 Ibis A Blas Work Phone: [facility] 250 DO Work Phone: 07-10-2022 10:45-0400 Body surface area Derived from formula 1.97 m2 Biis A Blas Work Phone: [facility] 250 DO Work Phone: 07-10-2022 10:45-0400 Body weight 89.81 kg Ibis A Blas Work Phone: [facility] 250 DO Work Phone: 07-10-2022 10:45-0400 Diastolic blood pressure 70 mm[Hg] Ibis A Blas Work Phone: [facility] 250 DO Work Phone: 07-10-2022 10:45-0400 Heart rate 76 /min Ibis A Blas Work Phone: [facility] 250 DO Work Phone: 07-10-2022 10:45-0400 Systolic blood pressure 104 mm[Hg] Ibis A Blas Work Phone: [facility] 250 DO Work Phone: 06-01-2022 11:36-0400 Body height 165.1 cm 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 Blas Work Phone: [facility] 06-01-2022 11:36-0400 Body temperature 100 [degF] 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 Blas Work Phone: [facility] 06-01-2022 11:36-0400 Body weight 88.4 kg 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 Blas Work Phone: [facility] 06-01-2022 11:36-0400 Diastolic blood pressure 68 mm[Hg] 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 Blas Work Phone: [facility] 06-01-2022 11:36-0400 Heart rate 99 /min 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 Blas Work Phone: [facility] 06-01-2022 11:36-0400 Respiratory rate 18 /min 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 Blas Work Phone: [facility] 06-01-2022 11:36-0400 SaO2% (BldA) [Mass fraction] 97 % 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 Blas Work Phone: [facility] 06-01-2022 11:36-0400 Systolic blood pressure 121 mm[Hg] 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 Blas Work Phone: [facility] 05-18-2022 09:42-0400 Body height 165.1 cm Ibis A Blas Work Phone: [facility] 250 DO Work Phone: 05-18-2022 09:42-0400 Body mass index (BMI) [Ratio] 31.95 kg/m2 Ibis A Blas Work Phone: [facility] 250 DO Work Phone: 05-18-2022 09:42-0400 Body surface area Derived from formula 1.94 m2 Ibis A Blas Work Phone: [facility] 250 DO Work Phone: 05-18-2022 09:42-0400 Body weight 87.09 kg Ibis A Blas Work Phone: [facility] 250 DO Work Phone: 05-18-2022 09:42-0400 Diastolic blood pressure 74 mm[Hg] Ibis A Blas Work Phone: [facility] 250 DO Work Phone: 05-18-2022 09:42-0400 Heart rate 72 /min Ibis A Blas Work Phone: [facility] 250 DO Work Phone: 05-18-2022 09:42-0400 Systolic blood pressure 102 mm[Hg] Ibis A Blas Work Phone: [facility] 250 DO Work Phone: 03-23-2022 09:11-0400 Diastolic blood pressure 80 mm[Hg] Ibis A Blas Work Phone: [facility] 250 DO Work Phone: 03-23-2022 09:11-0400 Systolic blood pressure 110 mm[Hg] Ibis A Blas Work Phone: [facility] 250 DO Work Phone: 03-23-2022 09:06-0400 Body height 166.37 cm Ibis A Blas Work Phone: [facility] 250 DO Work Phone: 03-23-2022 09:06-0400 Body mass index (BMI) [Ratio] 31.3 kg/m2 Ibis A Blas Work Phone: [facility] 250 DO Work Phone: 03-23-2022 09:06-0400 Body surface area Derived from formula 1.95 m2 Ibis A Blas Work Phone: [facility] 250 DO Work Phone: 03-23-2022 09:06-0400 Body weight 86.64 kg Ibis A Blas Work Phone: [facility] 250 DO Work Phone: 03-23-2022 09:06-0400 Diastolic blood pressure 76 mm[Hg] Ibis A Blas Work Phone: [facility] 250 DO Work Phone: 03-23-2022 09:06-0400 Heart rate 66 /min Ibis Rhonda Blas Work Phone: [facility] 250 DO Work Phone: 03-23-2022 09:06-0400 Systolic blood pressure 118 mm[Hg] Ibis Ellis Blas Work Phone: [facility] 250 DO Work Phone: 01-25-2022 08:16-0400 Body height 165.1 cm Irvin Hanna MD Work Phone: [facility] 01-25-2022 08:16-0400 Body weight 86.36 kg Irvin Hanna MD Work Phone: [facility] 01-25-2022 08:16-0400 Diastolic blood pressure 83 mm[Hg] Irvin Hanna MD Work Phone: [facility] 01-25-2022 08:16-0400 Heart rate 71 /min Irvin Hanna MD Work Phone: [facility] 01-25-2022 08:16-0400 Systolic blood pressure 116 mm[Hg] Irvin Hanna MD Work Phone: [facility] 01-10-2022 12:45-0400 Body height 165.1 cm Ok Mckeon Other [facility] Other 01-10-2022 12:45-0400 Body mass index (BMI) [Ratio] 31.61 kg/m2 Ok Mckeon Other [facility] Other 01-10-2022 12:45-0400 Body temperature 97.8 [degF] Ok Mckeon Other [facility] Other 01-10-2022 12:45-0400 Body weight 86.18 kg Ok Mckeon Other [facility] Other 01-10-2022 12:45-0400 Diastolic blood pressure 80 mm[Hg] Ok Whitneyr Other [facility] Other 01-10-2022 12:45-0400 SaO2% (BldA) [Mass fraction] 96 % Ok Mckoen Other [facility] Other 01-10-2022 12:45-0400 Systolic blood pressure 120 mm[Hg] Ok Mckeon Other [facility] Other 10-10-2021 15:50-0500 Body height 165.1 cm Christina Lambmond Other [facility] Other 10-10-2021 15:50-0500 Body mass index (BMI) [Ratio] 31.61 kg/m2 Christina Portia Other [facility] Other 10-10-2021 15:50-0500 Body temperature 97 [degF] Christina Portia Other [facility] Other 10-10-2021 15:50-0500 Body weight 86.18 kg Christina Portia Other [facility] Other 10-10-2021 15:50-0500 Diastolic blood pressure 76 mm[Hg] Christina Portia Other [facility] Other 10-10-2021 15:50-0500 Respiratory rate 18 /min Christina Portia Other [facility] Other 10-10-2021 15:50-0500 SaO2% (BldA) [Mass fraction] 99 % Christina Portia Other [facility] Other 10-10-2021 15:50-0500 Systolic blood pressure 123 mm[Hg] Christina Lambmond Other [facility] Other Encounters Encounter Date Encounter Type Care Provider Facility Start: 07-24-2024 End: 07-24-2024 ambulatory Celeste Watson Facility:[facility] [place] Start: 07-07-2024 End: 07-07-2024 Chart abstracting Hammad Hatch MD Work Phone: [facility] Start: 07-03-2024 End: 07-03-2024 flow sheet Flori TOLBERT Work Phone: [facility] Comment on above: Second trimester pre gnancy; 14 weeks gestation of Start: 07-03-2024 End: 07-03-2024 ambulatory FLORI GIL Not Available Start: 07-03-2024 End: 07-03-2024 Bamboo flowsheet Flori TOLBERT Work Phone: [facility] Start: 07-03-2024 End: 07-03-2024 Bamboo flowsheet Flori TOLBERT Work Phone: [facility] Start: 07-02-2024 End: 07-02-2024 ambulatory JOIE SEAMAN Facility:[facility] Comment on above: POTS (postural ortho static tachycardia syndrome) (Primary Dx); Near syncope Start: 07-02-2024 End: 07-02-2024 Telemedicine consultation with patient Joie Seaman ATOMIC PHYSICS TEACHER.BLACK AND WHITE PRINTER OPERATOR Work Phone: Neurology Start: 06-10-2024 End: 06-11-2024 ambulatory Jyoti Dickey PA-C Work Phone: Neurology Comment on above: Start: 06-04-2024 End: 06-04-2024 ambulatory OSEI MALIK Not Available Start: 05-23-2024 End: 05-23-2024 ambulatory CELESTE RINKES Not Available Start: 05-20-2024 End: 05-20-2024 ambulatory MAURISIO COLEMANMIKE Not Available Start: 04-12-2024 End: 04-12-2024 ambulatory Celeste Watson Facility[place] Start: 04-12-2024 End: 04-12-2024 Patient encounter procedure Celeste [facility] Start: 03-25-2024 Patient encounter status Flori Gil TOMASZ Work Phone: [facility] Start: 03-25-2024 End: 03-25-2024 ambulatory JB Charlton NAZIA Not Available Start: 03-20-2024 End: 03-20-2024 ambulatory Jyoti Dickey PA-C Work Phone: Neurology Comment on above: POTS (postural ortho static tachycardia syndrome) (Primary Dx) Start: 03-20-2024 End: 03-20-2024 Telemedicine consultation with patient Jyoti Dickey PA-C Work Phone: Neurology Start: 03-14-2024 End: 03-14-2024 ambulatory Celeste Watson Facility:[facility] Start: 03-14-2024 End: 03-14-2024 Patient encounter procedure Celeste [facility] Start: 02-26-2024 End: 02-26-2024 ambulatory JB Charlton NAZIA Not Available Start: 01-22-2024 ambulatory MOISTURE METER READER Krista L Mae [facility] Start: 01-01-2024 End: 01-01-2024 ambulatory CELESTE E RINKES Not Available Start: 12-21-2023 End: 12-21-2023 ambulatory CELESTE RINKES Not Available Start: 12-11-2023 End: 12-11-2023 ambulatory MOISTURE METER READER Krista L Mae Facility:[facility] [place] Start: 12-11-2023 End: 12-11-2023 ambulatory CELESTE E RINKES Not Available Start: 11-30-2023 End: 11-30-2023 ambulatory JYOTI DICKEY Facility:[facility] Start: 11-30-2023 End: 11-30-2023 Patient encounter procedure Jyoti Dickey PA-C Work Phone: Neurology Comment on above: POTS (postural ortho static tachycardia syndrome) (Primary Dx) Start: 11-12-2023 End: 11-12-2023 Patient encounter procedure Autonomic 2 Neur Main [facility] Start: 11-12-2023 End: 11-12-2023 ambulatory AURORA Latesha JO Neurology Comment on above: Procedure Start: 10-10-2023 End: 10-10-2023 ambulatory AURORA SANTIAGO Facility:[facility] Start: 07-24-2023 End: 07-24-2023 ambulatory Jocelin FELIX Facility[facility] Start: 07-20-2023 Telephone encounter Arin Tinajero RN [facility] Comment on above: Referral Follow-up Start: 07-10-2023 End: 07-10-2023 ambulatory JOSE ARMANDO GREY Facility:[facility] Start: 07-10-2023 End: 07-10-2023 Office outpatient new 30 minutes Jose Armando Grey DO Work Phone: [facility] [place] Comment on above: Chronic pain of righ t knee (Primary Dx); Tendinopathy of gluteal region Start: 07-06-2023 Orders Only Jose Armando Grey DO Work Phone: Orthopaedics Comment on above: Right knee pain, uns pecified chronicity (Primary Dx) Start: 07-05-2023 End: 07-05-2023 ambulatory 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 Renteria Work Phone: [facility] Work Phone: Start: 07-05-2023 End: 07-05-2023 Patient encounter procedure 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 Renteria Work Phone: [facility]-Flu Vaccine Start: 06-13-2023 Office outpatient vi sit 15 minutes Ibis Renteria Work Phone: [facility] 600 DO Work Phone: Start: 06-13-2023 ambulatory Tabatha Cota Facility:[id number] Start: 06-08-2023 End: 06-08-2023 Emergency department patient visit 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eren Renteria Work Phone: [facility] Work Phone: Start: 04-25-2023 End: 04-25-2023 ambulatory 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 Maggy Limer Work Phone: [facility] Work Phone: Start: 04-25-2023 End: 04-25-2023 Departed Referred 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 Blas Work Phone: [facility] [address] 250 Work Phone: Start: 03-14-2023 ambulatory CHAN MUÑIZ Fa cility:[facility] Start: 01-18-2023 End: 01-18-2023 ambulatory 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 Maggy Limer Work Phone: [facility] Work Phone: Start: 01-18-2023 End: 01-18-2023 Departed Referred 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 Blas Work Phone: [facility] [address] 250 Work Phone: Start: 12-28-2022 End: 12-28-2022 Patient encounter procedure Irvin Hanna MD Work Phone: Rheumatology Comment on above: Pain and swelling of knee, right (Primary Dx); Joint stiffness Start: 10-31-2022 Chart Update Ibis Arenasn cer Work Phone: [facility] 250 DO Work Phone: Start: 10-16-[address] Melodie Alfonso ty:[id number] Start: 10-13-2022 Current tobacco non-user cad cap copd pv dm Ibis Limer Work Phone: [facility] 320 DO Work Phone: Start: 10-13-[address] Annalee Pierre acility: Start: 09-11-2022 Office outpatient vi sit 15 minutes Ibis Rhonda Blas Work Phone: [facility] 250 DO Work Phone: Start: 09-11-2022 Patient encounter procedure Ibis Renteria Work Phone: [facility] 250 DO Work Phone: Start: 09-11-[address] Melodie Alfonso ty: Start: 09-07-2022 Telephone encounter Ibis Limer Work Phone: [facility] 320 DO Work Phone: Start: 08-27-[address] Annalee Pierre acility: Start: 08-01-2022 AUDIT Ibis Arenasn alexander Work Phone: [facility] 320 DO Work Phone: Start: 07-31-2022 EVENT EZEKIEL, Provider : HERIBERTO SERRANO PACK WORKER 1,[id number], Status: Pen, Time: 11:00 AM Ibis Arenasncer Work Phone: [facility] 250 DO Work Phone: Start: 07-31-[address] Annalee Pierre acility: Start: 07-31-2022 End: 07-31-2022 Patient encounter procedure Irvin Hanna MD Work Phone: Rheumatology Comment on above: Pain and swelling of knee, right (Primary Dx); Joint stiffness; Inflammatory arthritis Start: 07-26-2022 ambulatory IBIS Sanchez y:[facility] Start: 07-21-2022 Current tobacco non-user cad cap copd pv dm Ibis Limer Work Phone: [facility] 320 DO Work Phone: Start: 07-21-[address] Annalee Maza F acility: Start: 07-10-2022 Office outpatient vi sit 25 minutes Ibis A Blas Work Phone: [facility] 250 DO Work Phone: Start: 07-10-2022 Patient encounter procedure Ibis A Blas Work Phone: [facility] 250 DO Work Phone: Start: 07-10-[address] Melodie Alfonso ty: Start: 06-15-2022 Telephone encounter Ibis A Blas Work Phone: [facility] 250 DO Work Phone: Start: 06-12-2022 End: 06-12-[address] 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 Blas Work Phone: [facility]gency [facility] Start: 05-18-2022 Office outpatient vi sit 25 minutes Ibis A Blas Work Phone: [facility] 250 DO Work Phone: Start: 05-18-2022 Patient encounter procedure Ibis A Blas Work Phone: [facility] 250 DO Work Phone: Start: 05-08-2022 End: 05-08-2022 Patient encounter procedure 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 Blas Work Phone: [facility]-Respiratory Therapy Start: 05-03-2022 Result Review Ibis A Spen cer Work Phone: [facility] 250 DO Work Phone: Start: 05-03-2022 SURGNONUH, Provider: María Elena Freire, Status: Pen, Time: 10:00 AM Ibis A Blas Work Phone: [facility] 250 DO Work Phone: Start: 05-03-2022 End: 05-03-2022 Patient encounter procedure 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 Blas Work Phone: [facility]XRay [facility] Start: 03-28-2022 EVENT EZEKIEL, Provider : HERIBERTO SINGH PACK WORKER 1,[id number], Status: Pen, Time: 8:00 AM Ibis A Blas Work Phone: [facility] 250 DO Work Phone: Start: 03-28-2022 Patient encounter procedure Ibis A Blas Work Phone: [facility] 250 DO Work Phone: Start: 03-26-2022 Chart Update Ibis A Spen cer Work Phone: [facility] 250 DO Work Phone: Start: 03-24-2022 End: 03-24-2022 Patient encounter procedure 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 Blas Work Phone: [facility]Lab [facility] Start: 03-23-2022 Office consultation new/estab patient 60 min Ibis A Blas Work Phone: [facility] 250 DO Work Phone: Start: 03-23-2022 Office outpatient ne w 45 minutes Ibis A Blas Work Phone: [facility] Work Phone: Start: 02-02-2022 Telephone encounter Irvin shannon MD Work Phone: Rheumatology Comment on above: Orders Start: 01-25-2022 End: 01-25-2022 Patient encounter procedure Irvin Hanna MD Work Phone: Rheumatology Comment on above: Pain and swelling of knee, right (Primary Dx); Joint stiffness Start: 01-10-2022 End: 01-10-2022 ambulatory Ok Mckeon Other [facility] Other Start: 01-10-2022 Office outpatient ne w 45 minutes Ok Mckeon [facility] Vascular Surgery Start: 10-10-2021 End: 10-10-2021 ambulatory Christina Pearce Other [facility] Other Start: 10-10-2021 Office outpatient vi sit 15 minutes Christina Pearce [facility] [place] Procedures Date Procedure Procedure Detail Performing Clinician Start: 07-03-2024 Urnls dip stick/tabl et rgnt non-auto w/o micrscp Flori TOLBERT Work Phone: Start: 05-24-2024 Blood count complete automated Not In System Ref Prov Start: 07-10-2023 [facility] Pr ovider Historical Start: 06-08-2023 Plain chest X-ray 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 Limer Work Phone: Start: 01-18-2023 Plain chest X-ray 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 Blas Work Phone: Start: 05-03-2022 Plain chest X-ray 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 Blas Work Phone: Start: 08-05-2021 Arthroscopy of knee Lorna hlverenice Shirley Arthroscopy of knee Ibis A Blas Work Phone: Cryotherapy of warts Lornatrangelvia tawana Watson Extraction of wisdom tooth Ibis A Blas Work Phone: SARS-CoV-2, Influenz a & RSV (PCR) 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 Blas Work Phone: Tonsillectomy and adenoidectomy Ibis Arenasncer Work Phone: Tonsillectomy and adenoidectomy Celeste Watson NEGATED: Highlighted row has not occurred! Total colonoscopy Ibis Arenasncer Work Phone: Plan of Treatment Date Care Activity Detail Author Start: 03-25-2034 DTaP,Tdap and Td Vac cines (8 - Td or Tdap) DTaP,Tdap and Td Vaccines (8 - Td or Tdap) [facility] Start: 03-25-2034 Urine microalbumin profile DTaP,Tdap,Td Vaccine (8 - Td or Tdap) [facility] Start: 09-02-2024 End: 09-02-2024 ambulatory 09/02/2024 12:15 PM EST [facility] Neurology [address] [id number] Jyoti Dickey PA-C [address] [id number] F/u Neurology Comment on above: F/u Start: 08-13-2024 End: 08-13-2024 Patient encounter procedure [facility] Start: 08-05-2024 End: 08-05-2024 Patient encounter procedure 08/05/2024 8:50 AM EST Routine [facility] [address] [place] [address] Osei Malik DO [address], [place] [id number] [facility] Start: 07-03-2024 End: 07-03-2024 Patient encounter procedure 07/03/2024 2:30 PM EDT Routine [facility] [address] [place] [address] Flori Gil PA [address] [place] [address] Arrived [facility] Comment on above: Arrived Start: 05-25-2024 Covid-19 Vaccine ( season) Covid-19 Vaccine ( season) [facility] Start: 05-25-2024 Covid-19 Vaccine ( season) Covid-19 Vaccine () [facility] Start: 05-25-2024 Influenza vaccination [facility] Start: 04-20-2024 Urine microalbumin profile DTaP,Tdap,Td Vaccine (7 - Td or Tdap) [facility] Start: 09-24-2023 Depression Assessment Depression Ass essment [facility] Start: 05-25-2023 Covid-19 Vaccine ( season) Covid-19 Vaccine () [facility] Start: 05-25-2023 Influenza vaccination C [facility] Start: 04-25-2023 [facility] Start: 04-06-2023 FUV, Provider: Annalee Maza, Status: Pen, Time: 2:40 PM FUV, Provider: Annalee Maza, Status: Pen, Time: 2:40 PM -[facility] 320 DO Work Phone: Start: 2022 PAP TESTING PAP TESTING [facility] Start: 2022 Screening for malign ant neoplasm of cervix [facility] Start: 10-13-2022 FUV, Provider: Annalee Maza, Status: Pen, Time: 9:20 AM FUV, Provider: Annalee Maza, Status: Pen, Time: 9:20 AM -[facility] 320 DO Work Phone: Start: 09-24-2022 DEPRESSION ASSESSMENT DEPRESSION ASS ESSMENT [facility] Start: 09-11-2022 FUV, Provider: Melodie Alcaraz, Status: Pen, Time: 9:30 AM FUV, Provider: Melodie Alcaraz, Status: Pen, Time: 9:30 AM -[facility] 250 DO Work Phone: Start: 09-11-2022 EVENT EZEKIEL, Provider : HERIBERTO SINGH PACK WORKER 1,[id number], Status: Pen, Time: 8:30 AM EVENT EZEKIEL, Provider: HERIBERTO SINGH PACK WORKER 1,[id number], Status: Pen, Time: 8:30 AM -[facility] 320 DO Work Phone: Start: 08-14-2022 EVENT EZEKIEL, Provider : ARACELI [id number] PACK WORKER 1,[id number], Status: Pen, Time: 10:00 AM EVENT EZEKIEL, Provider: ARACELI [id number] PACK WORKER 1,[id number], Status: Pen, Time: 10:00 AM -[facility] 250 DO Work Phone: Start: 07-21-2022 NPVRFRL, Provider: Annalee Maza, Status: Pen, Time: 7:20 AM NPVRFRL, Provider: Annalee Maza, Status: Pen, Time: 7:20 AM -[facility] 250 DO Work Phone: Start: 07-10-2022 FUV, Provider: Melodie Alcaraz, Status: Pen, Time: 10:45 AM FUV, Provider: Melodie Alcaraz, Status: Pen, Time: 10:45 AM -[facility] 250 DO Work Phone: Start: 06-05-2022 [facility], Provider: Annalee Maza, Status: Pen, Time: 10:00 AM [facility], Provider: Annalee Maza, Status: Pen, Time: 10:00 AM -[facility] 250 DO Work Phone: Start: 05-25-2022 Influenza vaccination C [facility] Start: 05-18-2022 FUV, Provider: Meloide Alcaraz, Status: Pen, Time: 9:15 AM FUV, Provider: Melodie Alcaraz, Status: Pen, Time: 9:15 AM -[facility] 250 DO Work Phone: Start: 05-08-2022 End: 05-08-2022 Patient encounter procedure Departed [facility] Start: 05-03-2022 [facility], Provider: María Elena Freire, Status: Pen, Time: 10:00 AM [facility], Provider: María Elena Freire, Status: Pen, Time: 10:00 AM [facility] 250 DO Work Phone: Start: 03-28-2022 EVENT EZEKIEL, Provider : HERIBERTO SINGH PACK WORKER 1,[id number], Status: Pen, Time: 8:00 AM EVENT EZEKIEL, Provider: HERIBERTO SINGH PACK WORKER 1,[id number], Status: Pen, Time: 8:00 AM [facility] 250 DO Work Phone: Start: 01-25-2022 End: 03-27-2022 Chronic hepatitis differentiation between hepatitis B and C virus panel - Serum or Plasma [facility] Work Phone: Comment on above: Expected: 01/25/2022 , Expires: 03/27/2022 Start: 01-25-2022 End: 03-27-2022 Complement C1 esterase inhibitor [Mass/volume] in Serum or Plasma [facility] Work Phone: Comment on above: Expected: 01/25/2022 , Expires: 03/27/2022 Start: 01-25-2022 End: 03-27-2022 Complement C2 [Mass/volume] in Serum or Plasma [facility] Work Phone: Comment on above: Expected: 01/25/2022 , Expires: 03/27/2022 Start: 09-24-2021 DEPRESSION ASSESSMENT DEPRESSION ASS ESSMENT [facility] Start: 06-16-2021 COVID-19 VACCINE (3 - Booster for Pfizer series) COVID-19 VACCINE (3 - Booster for Pfizer series) [facility] Start: 03-11-2021 COVID-19 VACCINE (3 - Booster for Pfizer series) COVID-19 VACCINE (3 - Booster for Pfizer series) [facility] Start: 02-11-2021 COVID-19 VACCINE (3 - Pfizer risk series) COVID-19 VACCINE (3 - Pfizer risk series) [facility] Start: 2020 SHINGRIX VACCINE (1 of 2) VANG GRIX VACCINE (1 of 2) [facility] Start: 2020 Urine microalbumin profile [facility] Start: 12-03-2019 Adult BMI Screening Adult BMI Screen ing [facility] Start: 12-03-2019 Anxiety Screening Anxiety Screening [facility] Start: 12-03-2019 CHLAMYDIA SCREENING (1824) CHLAMYDIA SCREENING (1824) [facility] Start: 12-03-2019 Depression Screening Depression Scre ening [facility] Start: 12-03-2019 GC (GONORRHEA) SCREE NINI (1824) GC (GONORRHEA) SCREENING () [facility] Start: 12-03-2019 HEPATITIS C SCREENING HEPATITIS C SC REENING [facility] Start: 12-03-2019 HIV SCREENING HIV SCREENING [facility] Start: 12-03-2019 HIV screening HIV Screening [facility] Start: 12-03-2019 Screening for Chlamy taylor trachomatis Chlamydia Screening () [facility] Start: 2017 Meningococcal B Vacc ine: Consider Based On Risk (1 of 2 - Patient Seeks Protection) Meningococcal B Vaccine: Consider Based On Risk (1 of 2 - Patient Seeks Protection) [facility] Start: 12-03-2015 PEDS TO ADULT TRANSI TION ANNUAL ASSESSMENT PEDS TO ADULT TRANSITION ANNUAL ASSESSMENT [facility] Start: 2013 Adult depression screening assessment DEPRESSION SCREENING [facility] Start: 2013 PEDS TO ADULT TRANSI TION INITIAL DISCUSSION PEDS TO ADULT TRANSITION INITIAL DISCUSSION [facility] Start: 2013 Tobacco Screening Tobacco Screening [facility] Start: 2012 HPV VACCINE (1 - 2-d ose series) HPV VACCINE (1 - 2-dose series) [facility] Start: 12-03-2011 MENINGOCOCCAL B: Con insulation sprayer based on risk (1 of 2 - Risk Bexsero 2-dose series) MENINGOCOCCAL B: Consider based on risk (1 of 2 - Risk Bexsero 2-dose series) [facility] Start: 2010 HPV Vaccine (1 - 2-d ose series) HPV Vaccine (1 - 2-dose series) [facility] Start: 2010 HPV VACCINES (1 - 2- dose series) HPV VACCINES (1 - 2-dose series) [facility] Start: 2008 DTaP/Tdap/Td VACCINE S (1 - Tdap) DTaP/Tdap/Td VACCINES (1 - Tdap) [facility] Start: 12-03-2007 PNEUMOCOCCAL (1 - PCV) PNEUMOCOCCAL (1 - PCV) [facility] Start: 2002 MMR VACCINES (1 of 1 - Standard series) MMR VACCINES (1 of 1 - Standard series) [facility] Start: 2002 VARICELLA VACCINES ( 1 of 2 - 2-dose childhood series) VARICELLA VACCINES (1 of 2 - 2-dose childhood series) [facility] Start: 06-04-2002 COVID-19 Vaccine (#1) COVID-19 Vacci ne (#1) [facility] Start: 2001 HEPATITIS B (1 of 3 - 3-dose series) HEPATITIS B (1 of 3 - 3-dose series) [facility] Start: 2001 Hepatitis B Vaccine (1 of 3 - 3-dose series) Hepatitis B Vaccine (1 of 3 - 3-dose series) [facility] Start: 2001 HEPATITIS B VACCINES (1 of 3 - 3-dose series) HEPATITIS B VACCINES (1 of 3 - 3-dose series) [facility] Patient Education [facility] Work Phone: Patient referral [facility] Work Phone: End: 08-04-2024 XR KNEE GENERAL 4V AP BOTH/PA BOTH/LAT/MERC RIGHT XR KNEE GENERAL 4V AP BOTH/PA BOTH/LAT/MERC RIGHT Radiology Routine Right knee pain, unspecified chronicity 1 Occurrences starting 07/06/2023 until 08/04/2024 [facility] Work Phone: Comment on above: 1 Occurrences starti ng 07/06/2023 until 08/04/2024 [facility] Immunizations Immunization Date Immunization Notes Care Provider Fa cility 03-25-2024 tetanus toxoid, redu richar diphtheria toxoid, and acellular pertussis vaccine, adsorbed Flori TOLBERT Work Phone: [facility] 07-05-2023 influenza virus vaccine, unspecified formulation Celeste Shirley [facility] 07-05-2023 influenza, injectabl e, quadrivalent, preservative free Flori TOLBERT Work Phone: [facility] 01-14-2021 Pfizer-BioNTech COVID-19 Vacc 30 MCG/0.3ML Intramuscular Suspension Ibis A Blas Work Phone: [facility] Comment on above: Result Comment: 2023: TPVAL 12-24-2020 Pfizer-BioNTech COVID-19 Vacc 30 MCG/0.3ML Intramuscular Suspension Ibis A Blas Work Phone: [facility] Comment on above: Result Comment: 2023: TPVAL 12-11-2017 meningococcal polysaccharide (groups A, C, Y and W-135) diphtheria toxoid conjugate vaccine (MCV4P) Christina Portia Other [facility] [employer] Other 12-11-2017 meningococcal ACWY vaccine, unspecified formulation Celeste Shirley [facility] 11-06-2014 human papilloma viru s vaccine, quadrivalent Christina Portia Other [employer] Other 11-06-2014 HPV, unspecified formulation Ibis A Blas Work Phone: [facility] 250 DO Work Phone: 06-26-2014 HPV, unspecified formulation Celeste Michelleradha [facility] 06-26-2014 human papilloma viru s vaccine, quadrivalent Christina Portia Other [id number] Other 04-20-2014 human papilloma viru s vaccine, quadrivalent Christina Portia Other [facility] Other 04-20-2014 meningococcal polysaccharide (groups A, C, Y and W-135) diphtheria toxoid conjugate vaccine (MCV4P) Christina Portia Other [facility] [employer] Other 04-20-2014 tetanus toxoid, redu richar diphtheria toxoid, and acellular pertussis vaccine, adsorbed Christina Portia Other [facility] 04-20-2014 HPV, unspecified formulation Celeste [employer] [facility] 04-20-2014 meningococcal ACWY vaccine, unspecified formulation [employer] [facility] 12-27-2006 diphtheria, tetanus toxoids and acellular pertussis vaccine, unspecified formulation Ibis A Blas Work Phone: [facility] [employer] DO Work Phone: 12-27-2006 DTaP, unspecified formulation Celeste [employer] [facility] 12-27-2006 measles, mumps, rubella, and varicella virus vaccine Ibis A Blas Work Phone: [facility] 12-27-2006 poliovirus vaccine, inactivated Ibis A Blas Work Phone: [facility] [employer] 250 DO Work Phone: 12-27-2006 poliovirus vaccine, unspecified formulation Celeste [employer] [facility] 02-06-2003 diphtheria, tetanus toxoids and acellular pertussis vaccine, unspecified formulation Ibis A Blas Work Phone: [facility] 250 DO Work Phone: 02-06-2003 DTaP, unspecified formulation Celeste Rinkes [facility] 02-06-2003 haemophilus influenz ae type b vaccine, conjugate unspecified formulation Ibis A Blas Work Phone: [place] [address] DO Work Phone: 02-06-2003 Hib, unspecified formulation Celeste Rinkes [facility] 02-06-2003 measles, mumps and rubella virus vaccine Ibis A Blas Work Phone: [facility] 02-06-2003 varicella virus vaccine Susan ica A Blas Work Phone: [facility] 07-02-2002 diphtheria, tetanus toxoids and acellular pertussis vaccine, unspecified formulation Ibis A Blas Work Phone: [place] [address] DO Work Phone: 07-02-2002 DTaP, unspecified formulation Celeste Rinkes [facility] 07-02-2002 haemophilus influenz ae type b vaccine, conjugate unspecified formulation Ibis A Blas Work Phone: [place] [address] DO Work Phone: 07-02-2002 Hib, unspecified formulation Celeste Rinkes [facility] 07-02-2002 pneumococcal conjuga te vaccine, 7 valent Ibis A Blas Work Phone: [facility] 250 DO Work Phone: 07-02-2002 poliovirus vaccine, inactivated Ibis A Blas Work Phone: [place] [address] DO Work Phone: 07-02-2002 poliovirus vaccine, unspecified formulation Celeste [employer] [facility] 05-19-2002 diphtheria, tetanus toxoids and acellular pertussis vaccine, unspecified formulation Ibis A Blas Work Phone: [place] [address] DO Work Phone: 05-19-2002 DTaP, unspecified formulation [employer] [facility] 05-19-2002 haemophilus influenz ae type b conjugate and Hepatitis B vaccine Ibis A Blas Work Phone: [place] [address] DO Work Phone: 05-19-2002 pneumococcal conjuga te vaccine, 7 valent Ibis A Blas Work Phone: [place] [address] DO Work Phone: 05-19-2002 poliovirus vaccine, inactivated Ibis A Blas Work Phone: [place] [address] DO Work Phone: 05-19-2002 poliovirus vaccine, unspecified formulation [employer] [facility] 03-05-2002 diphtheria, tetanus toxoids and acellular pertussis vaccine, unspecified formulation Ibis A Blas Work Phone: [place] [address] DO Work Phone: 03-05-2002 DTaP, unspecified formulation Celeste [employer] [facility] 03-05-2002 haemophilus influenz ae type b conjugate and Hepatitis B vaccine Ibis A Blas Work Phone: [place] [address] DO Work Phone: 03-05-2002 poliovirus vaccine, inactivated Ibis A Blas Work Phone: [facility] [employer] 250 DO Work Phone: 03-05-2002 poliovirus vaccine, unspecified formulation Celeste Watson [facility] 2001 hepatitis B vaccine, pediatric or pediatric/adolescent dosage Ibis A Blas Work Phone: [facility] Payers Date Payer Category Payer Self-pay [id number] 2023 Unknown [id number] 2021 Private Health Insurance [id number] 2021 Private Health Insurance [id number] [id number] 2020 Private Health Insurance [facility] CHOICE PLUS [id number] 2020-Present [phone] [address] [place] [address] O [id number]. [id number] 2020 Unknown [id number] 2013 Medicaid [employer] [id number] 2013-Present [phone] [address] [place] [address] Medicaid [id number]. [id number] 2013 Medicaid [id number]. [id number] 2007 Unknown [id number] 2.16.840.1.615358.19 2001 Unknown [id number] 2.16.840.1.102880.3.579.2. 1068 2001 Unknown [id number] 2.16.840.1.515507.3.579.2. 594 2001 Unknown [id number] 2.16.840.1.564636.3.579.2. 594 2001 Unknown [id number] 2.16.840.1.925451.3.579.2. 356 2001 Unknown [id number] 2.16.840.1.473453.3.579.2. 356 2001 Unknown [id number] 2.16.840.1.676208.3.579.2. 356 2001 Unknown [id number] 2.16.840.1.000918.3.579.2. 356 2001 Unknown [id number] 2.16.840.1.918927.3.579.2. 356 2001 Unknown [id number] 2.16.840.1.116485.3.579.2. 356 2001 Unknown [id number] 2.16.840.1.762948.3.579.2. 356 2001 Unknown [id number] 2.16.840.1.212589.3.579.2. 356 2001 Unknown [id number] 2.16.840.1.527802.3.579.2. 727 2001 Unknown [id number] 2.16.840.1.597008.3.579.2. 727 2001 Unknown [id number] 2.16.840.1.137200.3.579.2. 727 2001 Unknown [id number] 2.16.840.1.793981.3.579.2. 727 2001 Unknown [id number] 2.16.840.1.133468.3.579.2. 727 2001 Unknown [id number] 2.16.840.1.762324.3.579.2. 1259 2001 Unknown [id number] 2.16.840.1.116913.3.579.2. 9 2001 Unknown [id number] 2.16.840.1.329978.3.579.2. 1259 2001 Unknown [id number] 2.16.840.1.714797.3.579.2. 1259 2001 Unknown [id number] 2.16.840.1.069337.3.579.2. 1259 2001 Unknown [id number] 2.16.840.1.226655.3.579.2. 9 2001 Unknown [id number] 2.16.840.1.476750.3.579.2. 1259 2001 Unknown [id number] 2.16.840.1.125685.3.579.2. 1259 2001 Unknown [id number] 2.16.840.1.518105.3.579.2. 1259 Unknown Unknown Venessa BC/JESSICA [id number] Unknown [id number] 2.16.840.1.376445.3.579.2. 531 Social History Date Type Detail Facility Tobacco smoking stat RUSTIS Tobacco smoking consumption unknown [facility] Work Phone: Start: 2001 Sex Assigned At Not on file [facility] Start: 01-15-2022 End: 07-31-2022 Exposure to SARS-CoV-2 (event) Not sure [facility] Start: 11-03-2020 End: 12-28-2022 Sex Assigned At [facility] Start: 11-03-2020 End: 12-28-2022 No alcohol use No alcohol use [facility] Comment on above: very rarely soda; Start: 02-19-2018 End: 09-20-2019 Tobacco smoking status PRIS Never smoked tobacco (finding) [facility] Start: 2001 Sex Assigned At Female F [facility] Start: 02-19-2018 End: 07-31-2022 Tobacco use and exposure Smokeless tobacco non-user [facility] Adult Depression Screening Assessment 0 [facility] Start: 09-29-2023 Gender identity Identifies as female gender (finding) [facility] Start: 06-04-2024 End: 07-07-2024 Alcoholic beverage intake Ex-drinker (finding) [facility] Do you belong to any clubs or organizations such as spiritism groups, unions, fraVSHORE or athletic groups, or school groups? No [facility] Are you now , , , , never or living with a partner? [facility] How often to you hav e a drink containing alcohol? Never [facility] How hard is it for y ou to pay for the very basics like food, housing, medical care, and heating Not very hard [facility] Do you feel stress - tense, restless, nervous, or anxious, or unable to sleep at night because your mind is troubled all the time - these days [OSQ] Only a little [facility] (I/We) worried wheth er (my/our) food would run out before (I/we) got money to buy more. Never true [facility] Start: 12-08-2023 Alcohol Comment socially, Caff eine intake: none [facility] Start: 04-05-2024 [facility] NEGATED: Highlighted rowStart: NINF History of tobacco use Passive smoker [facility] Clinical Notes 09-24-2007 to 07-03-2024 TOMASZ Rizvi - 07/03/2024 2:30 PM Joie Yang APRN.CNP - 07/02/2024 3:30 PM Jyoti Hutchins PA-C - 03/20/2024 3:15 PM Jyoti Hutchins PA-C - 11/30/2023 10:00 AM EST Note Date & Type Note Facility 07-03-2024 History of Present illness Narrative Reason for Appointment: Patient ID: Madyson Mai is a 23 y.o. female who presents for Routine Visit Patient presents today for Return OB appointment. MEDICATIONS Current Outpatient Medications Medication Instructions albuterol HFA 90 mcg/act inhaler Vit-Fe Fumarate-FA (M- Plus) 27-1 MG tablet 1 tablet, Oral, Daily ALLERGIES Allergies Allergen Reactions Chlorhexidine Itching Fludrocortisone nausea Midodrine GI bleeding Oxycodone-Acetaminophen no narcotics, GI upset Prednisolone Gi upset Prednisone Dizziness PROBLEMS Active Ambulatory Problems Diagnosis Date Noted Chondromalacia of right patella 02/17/2023 Patellofemoral pain syndrome of right knee 02/17/2023 Sciatica 02/17/2023 Abnormal tilt table test 08/13/2023 Acid reflux 02/26/2024 Asthma (CMS/HCC) 02/26/2024 POTS (postural orthostatic tachycardia syndrome) 08/13/2023 Chest pain, atypical 08/13/2023 Chondromalacia 02/26/2024 Dysmenorrhea 02/26/2024 Dyspnea 08/13/2023 Excessive and frequent menstruation 02/26/2024 Mild intermittent asthma (CMS/HCC) 08/13/2023 MMT (medial meniscus tear) 02/26/2024 Palpitation 08/13/2023 PCOS (polycystic ovarian syndrome) 02/26/2024 Personal history of COVID-19 08/13/2023 PVC (premature ventricular contraction) 08/13/2023 Syncope 08/13/2023 Thumb pain, right 02/26/2024 De Quervain's disease (tenosynovitis) 02/26/2024 Tension headache 03/25/2024 Encounter for immunization 03/25/2024 Well adult exam 03/25/2024 Resolved Ambulatory Problems Diagnosis Date Noted No Resolved Ambulatory Problems Past Medical History: Diagnosis Date Polycystic ovary syndrome 12/18/23 HISTORY PAST MEDICAL HISTORY SOCIAL HISTORY Past Medical History: Diagnosis Date Asthma (CMS/HCC) Polycystic ovary syndrome 12/18/23 POTS (postural orthostatic tachycardia syndrome) Social History Tobacco Use Smoking status: Never Smokeless tobacco: Never Vaping Use Vaping status: Never Used Substance Use Topics Alcohol use: Not Currently Alcohol/week: 2.0 standard drinks of alcohol Comment: socially, Caffeine intake: none Drug use: Never FAMILY HISTORY Family History Problem Relation Name Age of Onset Diabetes Maternal Grandmother Hypertension Maternal Grandfather Johnathan Hypertension Mother's Sister Vanessa Lung cancer Maternal Great-Grandmother Other (bladder cancer) Maternal Great-Grandmother SURGICAL HISTORY Past Surgical History: Procedure Laterality Date HAND SURGERY Bilateral Wart removal bilateral hands KNEE ARTHROSCOPY W/ PLICA EXCISION Right 08/05/2021 Dr. Schmid TONSILECTOMY, ADENOIDECTOMY, BILATERAL MYRINGOTOMY AND TUBES WISDOM TOOTH EXTRACTION 02/2020 REVIEW OF SYSTEMS Review of Systems: Review of Systems Constitutional: Negative. HENT: Negative. Eyes: Negative. Respiratory: Negative. Cardiovascular: Negative. Gastrointestinal: Negative. Genitourinary: Negative. Musculoskeletal: Negative. Skin: Negative. Neurological: Negative. All other systems reviewed and are negative. Hematological: Negative. Endocrine: Negative. Allergic/Immunologic: Negative. OBJECTIVE Objective: Physical Exam Constitutional: Appearance: Normal appearance. She is normal weight. HENT: Head: Normocephalic. Cardiovascular: Rate and Rhythm: Normal rate. Pulses: Normal pulses. Pulmonary: Effort: Pulmonary effort is normal. Breath sounds: Normal breath sounds. Abdominal: Palpations: Abdomen is soft. Musculoskeletal: General: Normal range of motion. Neurological: General: No focal deficit present. Mental Status: She is alert and oriented to person, place, and time. Psychiatric: Mood and Affect: Mood normal. Behavior: Behavior normal. Thought Content: Thought content normal. Judgment: Judgment normal. Vitals and nursing note reviewed. Vitals: Estimated body mass index is 35.65 kg/m as calculated from the following: Height as of 05/20/24: 5' 5 . Weight as of this encounter: 214 lb 4 oz. BP: 116/64 Patient's last menstrual period was 03/22/2024. ASSESSMENT & PLAN ICD-10-CM 1. Second trimester Z34.92 2. 14 weeks gestation of Z3A.14 Return OB: Patient presents today for a routine obstetrics appointment. Patient is currently 14w5d twin gestation p Patient states she is doing well but has complaints of being tired due to current . Patient is being referred to [facility] for her twin , gave her information about who she will be seeing there. No orders of the defined types were placed in this encounter. Follow Up: Patient is to return to office in 4 weeks for routine OB appointment. Documented by Ibis Sandoval on behalf of: TOMASZ Rizvi documented in this encounter [facility] 07-02-2024 History of Present illness Narrative Images from the original note were not included. [facility] Follow Up / Established Virtual Visit I have communicated my name and active licensure. The patient's identity and physical location were verified at the time of this visit. Either the patient or their legal lead customer service representative has been informed of the risks and benefits of -- and alternatives to -- treatment through a remote evaluation and consents to proceed with the evaluation remotely. Individuals who were included in, or assisted with the encounter were: Madyson Charlton Mariah Seaman APRN.[employer] PRINTER OPERATOR Chief Complaint/Issues: Madyson Mai is a 23 year old female seen in the [facility] for: POTS Most Recent Neurological Assessment and Plan: 03/20/2024- with Jyoti Diceky for POTS HPI/Interval History: She is 14 1/2 weeks gestation with twins. This is her first . She reports prior to symptoms were stable, worse with . She has had nausea worse in the first trimester and this is improving in second. Now nausea with near syncopal episodes. 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 She reports she has had more dizziness, near syncope. Getting out of breath easily on steps She is not utilizing compression. Has increased her water - 8 oz in morning, 40 oz before noon, 40 oz afternoon and water in evening. Drinking 1 Gatorade. Had an episode where BP was high 170/100's and HR 125. Reports her BP is typically in normal range. Not on any orthostatic medications currently. Prior Medications for orthostatic condition Fludrocortisone Midodrine Droxidopa General Examination: She is alone. Examination: Exam is limited due to virtual visit and is observational at best. General: Awake, alert, interactive, no acute distress, good nutritional status, normal development, well-kept Neurological: Mental Status: Alert, fully oriented, attentive, with normal cognition, memory, speech and affect. Cranial Nerves: Extraocular movements normal. No nystagmus, no ptosis, and pupils equal. Face symmetrical. Tongue normal. Musculoskeletal: No apparent muscle atrophy or deformity/contracture. Neurological Exam Assessment & Plan 07/02/2024 - General Neurology, Joie Seaman, JOHNNY.[employer] WH[employer] PRINTER OPERATOR ASSESSMENT Madyson Mai is a 23 year old female here today for POTS follow up. She is 14 weeks gestation with twins. She has had increase in orthostatic lightheadedness and near syncope. We discussed conservative measures, encouraged utilization of compression garments, increased hydration and electrolytes. We discussed gradual increase in exercise and utilizing counter pressure maneuvers if symptomatic. She has previously trailed midodrine and fludrocortisone and did not tolerate so we are limited from a medication standpoint especially in . Letter provided for school/clinical accomodation to allow her access to water at her work area and ability to avoid prolonged sitting/standing. PLAN POTS Conservative Measures 1. Increased water intake (2-2.5 liters of water daily) 2. Increased salt intake (3-5 grams daily) 3. Compression stockings 4. Gradual increase in Exercise Medication Changes --None today. Encounter Diagnosis ICD-10-CM 1. POTS (postural orthostatic tachycardia syndrome) G90.A 2. Near syncope R55 No follow-ups on file. Data Review Objective Current Outpatient Medications Medication Sig CLOMID 50 mg tablet 100 mg. albuterol HFA (PROVENTIL HFA, VENTOLIN HFA) 90 mcg/actuation inhaler Inhale 2 Puffs as instructed every 6 hours as needed. No current facility-administered medications for this visit. There is no problem list on file for this patient. No past medical history on file. No past surgical history on file. Social History Tobacco Use Smoking status: Never Passive exposure: Never Smokeless tobacco: Never No family history on file. Review of Systems Lab and Test Review: No visits with results within 3 Month(s) from this visit. Latest known visit with results is: Results Only on 11/12/2023 Component Date Value Ref Range Status LV Ejection Fraction 11/12/2023 59 % Final Comment: (2D biplane) EF > 54 An LV Ejection Fraction of > 50% is normal Outside Data/Labs: Subjective Patient-Entered Data: 07/02/24 - PHQ-2 Score: 0 PHQ-9 Score: 1 GENERAL NEUROLOGY SCORES 10/04/2023 03/13/2024 06/28/2024 PROMIS 10 Health, in general Good Fair Good Quality of life, in general Very good Good Good Physical health, in general Fair Fair Fair Mental health, in general Excellent Good Good Social activities satisfaction Excellent Good Very good Performing ADL's Moderately Mostly Moderately Social role satisfaction Very good Good Good Pain, on average 8 5 4 Fatigue, on average Mild Mild Moderate Emotional problems Rarely Never Rarely PHYSICAL Score 37.4 (Fair) 42.3 (Good) 37.4 (Fair) MENTAL Score 59 (Excellent) 48.3 (Very Good) 48.3 (Very Good) 11/26/2023 03/13/2024 06/28/2024 Depression Screening PHQ-2 Score 0 0 0 PHQ-9 Score 3 3 1 DANIELE-2 Total Score 0 2 DANIELE-7 Total Score 1 6 10/04/2023 SLEEP APNEA SCORE Probability of moderate-severe sleep apnea (%) SAPS V2 4 (Sleep study not recommended) No data to display No data to display I spent a total of 36 minutes on the date of the service which included preparing to see the patient, [id number] patient care, completing clinical documentation, obtaining and/or reviewing separately obtained history, performing a medically appropriate examination, counseling and educating the patient/family/caregiver, and ordering medications, tests, or procedures. Joie Seaman, JOHNNY.BLACK AND WHITE PRINTER OPERATOR 06/28/2024 PROMIS Global Health Physical Health Summary Physical health: Fair Everyday physical activity, ability: Moderately Fatigue: Moderate Pain level: 4 General health: Good Social activities/roles, ability: Good Physical Health T-Score 37.4 (Fair) Physical Health Percentile 10 PROMIS Global Health Mental Health Summary Quality of life: Good Mental health (mood,thinking): Good Social satisfaction: Very good Emotional problems (anxious,depressed): Rarely Mental Health T-Score 48.3 (Very Good) Mental Health Percentile 43 PHQ-9 Score: 1(Minimal Depression) PHQ-9 Self-Harm: Not at all NEURO-QOL Cognitive Function T-Score 56(Within Normal Limits) Neuro-Qol Cognitive Function Percentile 73 PROMIS Physical Function T-Score 42(Mild Dysfunction) PROMIS Physical Function Percentile 21 PROMIS Pain Interference T-Score 67(Moderate) PROMIS Pain Interference Percentile 4 Percentiles provide an indication of how a patient's score ranks in relation to the [place] general population. > 31st percentile is within normal limits or better *< 31st percentile is at least SD worse than population, which may be clinically relevant < 16th percentile is at least 1 SD worse than population and warrants attention documented in this encounter [facility] 07-02-2024 Note HNO ID: [id number] Author: JOIE SEAMAN APRN.CNP Service: ? Author Type: Nurse Practitioner Type: Progress Notes Filed: 07/02/2024 19:57 Note Text: [facility] General Neurology Follow Up / Established Virtual Visit I have communicated my name and active licensure. The patient's identity and physical location were verified at the time of this visit. Either the patient or their legal lead customer service representative has been informed of the risks and benefits of -- and alternatives to -- treatment through a remote evaluation and consents to proceed with the evaluation remotely. Individuals who were included in, or assisted with the encounter were: Madyson Seaman APRN.CNP Chief Complaint/Issues: Madyson Mai is a 23 year old female seen in the [facility] for General Neurology for: POTS Most Recent Neurological Assessment and Plan: 03/20/2024- with Jyoti Dickey for POTS HPI/Interval History: She is 14 1/2 weeks gestation with twins. This is her first . She reports prior to symptoms were stable, worse with . She has had nausea worse in the first trimester and this is improving in second. Now nausea with near syncopal episodes. 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 She reports she has had more dizziness, near syncope. Getting out of breath easily on steps She is not utilizing compression. Has increased her water - 8 oz in morning, 40 oz before noon, 40 oz afternoon and water in evening. Drinking 1 Gatorade. Had an episode where BP was high 170/100's and HR 125. Reports her BP is typically in normal range. Not on any orthostatic medications currently. Prior Medications for orthostatic condition Fludrocortisone Midodrine Droxidopa General Examination: She is alone. Examination: Exam is limited due to virtual visit and is observational at best. General: Awake, alert, interactive, no acute distress, good nutritional status, normal development, well-kept Neurological: Mental Status: Alert, fully oriented, attentive, with normal cognition, memory, speech and affect. Cranial Nerves: Extraocular movements normal. No nystagmus, no ptosis, and pupils equal. Face symmetrical. Tongue normal. Musculoskeletal: No apparent muscle atrophy or deformity/contracture. Neurological Exam Assessment AND Plan 07/02/2024 - General Neurology, Joie Seaman, ATOMIC PHYSICS TEACHER.BLACK AND WHITE PRINTER OPERATOR ASSESSMENT Madyson Mai is a 23 year old female here today for POTS follow up. She is 14 weeks gestation with twins. She has had increase in orthostatic lightheadedness and near syncope. We discussed conservative measures, encouraged utilization of compression garments, increased hydration and electrolytes. We discussed gradual increase in exercise and utilizing counter pressure maneuvers if symptomatic. She has previously trailed midodrine and fludrocortisone and did not tolerate so we are limited from a medication standpoint especially in . Letter provided for school/clinical accomodation to allow her access to water at her work area and ability to avoid prolonged sitting/standing. PLAN POTS Conservative Measures 1. Increased water intake (2-2.5 liters of water daily) 2. Increased salt intake (3-5 grams daily) 3. Compression stockings 4. Gradual increase in Exercise Medication Changes --None today. Encounter Diagnosis ICD-10-CM 1. POTS (postural orthostatic tachycardia syndrome) G90.A 2. Near syncope R55 No follow-ups on file. Data Review Objective Current Outpatient Medications Medication Sig CLOMID 50 mg tablet 100 mg. albuterol HFA (PROVENTIL HFA, VENTOLIN HFA) 90 mcg/actuation inhaler Inhale 2 Puffs as instructed every 6 hours as needed. No current facility-administered medications for this visit. There is no problem list on file for this patient. No past medical history on file. No past surgical history on file. Social History Tobacco Use Smoking status: Never Passive exposure: Never Smokeless tobacco: Never No family history on file. Review of Systems Lab and Test Review: No visits with results within 3 Month(s) from this visit. Latest known visit with results is: Results Only on 11/12/2023 Component Date Value Ref Range Status LV Ejection Fraction 11/12/2023 59 % Final Comment: (2D biplane) EF > 54 An LV Ejection Fraction of > 50% is normal Outside Data/Labs: Subjective Patient-Entered Data: 07/02/24 - PHQ-2 Score: 0 PHQ-9 Score: 1 GENERAL NEUROLOGY SCORES 10/04/2023 03/13/2024 06/28/2024 PROMIS 10 Health, in general Good Fair Good Quality of life, in general Very good Good Good Physical health, in general Fair Fair Fair Mental health, in general Excellent Good Good Social activities satisfaction Excellent Good Very good Performing ADL's Moderately Mostly Moderately S (more content not included)... [facility] 03-20-2024 History of Present illness Narrative Images from the original note were not included. [facility] for Neuromuscular Medicine Follow-Up VIRTUAL VISIT This is a virtual visit using [employer] Video Visit. It required patient-provider interaction for the medical decision making as documented below. I have communicated my name and active licensure. The patient's identity and physical location were verified at the time of this visit. Either the patient or their legal lead customer service representative has been informed of the risks and benefits of -- and alternatives to -- treatment through a remote evaluation and consents to proceed with the evaluation remotely. Maydson Mai is a 23 year old female [...] which included preparing to see the patient, [id number] patient care, completing clinical documentation, obtaining and/or reviewing separately obtained history, performing a medically appropriate examination, counseling and educating the patient/family/caregiver, and ordering medications, tests, or procedures. Jyoti Dickey PA-C Neuromuscular Medicine [address] [place] [address]. [id number] Appointment: [phone] During our virtual visit encounter we discussed [...] problem? : Mild documented in this encounter [facility] 03-20-2024 Note HNO ID: [id number] Author: JYOTI DICKEY PA-C Service: ? Author Type: Physician Transport Engineer Type: Progress Notes Filed: 03/20/2024 15:17 Note Text: [facility] Neuromuscular Medicine Follow-Up VIRTUAL VISIT This is a virtual visit using [employer] Video Visit. It required patient-provider interaction for the medical decision making as documented below. I have communicated my name and active licensure. The patient's identity and physical location were verified at the time of this visit. Either the patient or their legal lead customer service representative has been informed of the risks [...] the mean hea (more content not included)... [facility] 11-30-2023 History of Present illness Narrative Images from the original note were not included. [facility] for Neuromuscular Medicine New Patient Evaluation Madyson Mai is a 22 year old right handed female. Patient presents with: New Patient Consult Madyson Mai is referred in consultation by Aurora Santiago PA-C for POTS. Final recommendations will be communicated to the requesting physician by way of a letter. [facility]: - obesity Neurology, Aurora Santiago PA-C 10/10/2023: [...] experienced LOC while walking up the stairs. [place] prodromal symptoms including lightheadedness and tunnel vision. [...] 5/5 Hip Abduction 5/5 5/5 Knee Flexion /5 5/5 Knee Extension /5 5/5 Ankle Dorsiflexion / 5/5 Ankle Plantarflexion 5/5 5/5 Movement/Coordination Finger-to- nose-finger and cybj-td-mneg intact bilaterally. No evidence of ataxia arms. [...] Brachioradialis 2/4 2/4 Patella 2/4 2/4 Ankle / 2/4 No Clonus Negative Babinski (toes curl [...] which included preparing to see the patient, papg-vb-wvit patient care, completing clinical documentation, obtaining and/or [...] on 11/30/23. Jyoti Dickey PA-C Neuromuscular Medicine [address] [place] [address]. [id number] Appointment: [phone] 1. This office note has been dictated [...] problem? : Moderate documented in this encounter [facility] 11-30-2023 Note HNO ID: [id number] Author: JYOTI DICKEY PA-C Service: ? Author Type: Physician Transport Engineer Type: Progress Notes Filed: 11/30/2023 11:14 Note Text: [facility] for Neuromuscular Medicine New Patient Evaluation [...] experienced LOC while walking up the stairs. [place] prodromal symptoms including lightheadedness and tunnel vision. [...] breathing: - Tac (more content not included)... [facility] 11-12-2023 Note HNO ID: [id number] Author: ?, ?, ? Service: ? Author [...] Care Visit completed when applicable. Gauri Harris [facility] 11-12-2023 History of Present illness Narrative UNIVERSAL [...] applicable. Gauri Harris documented in this encounter [facility] 10-10-2023 Note HNO ID: [id number] Author: AURORA SANTIAGO PA-C Service: ? Author Type: Physician Transport Engineer Type: Progress Notes Filed: 10/10/2023 16:33 Note Text: [facility] for Neuromuscular Medicine New Patient Evaluation [...] No current facility-adminis (more content not included)... [facility] 10-10-2023 Note HNO ID: [id number] Author: ANGELIQUE RUTH MD Service: ? Author Type: Physician Type: Procedures Filed: 02/24/2024 20:55 Note Text: Patient Name: Madyson Pereiraleilani : 2000 Ordering Provider: AURORA SANTIAGO Indication: [...] VE Couplets or VE Triplets were present. [facility] 07-20-2023 Telephone encounter Note Call to Madyson to discuss referral to dysautonomia clinic. Informed her that we are unable to provide dysautonomia evaluation at this time. Provided number for [facility] scheduling service. No other needs at this time. [facility] 07-20-2023 Miscellaneous Notes Call to Madyson to discuss referral to dysautonomia clinic. Informed her that we are unable to provide dysautonomia evaluation at this time. Provided number for [facility] scheduling service. No other needs at this time. documented in this encounter [facility] 07-10-2023 Note HNO ID: [id number] Author: Jose Armando Grey, DO Service: ? Author Type: Physician Type: Progress Notes Filed: 07/10/2023 10:08 AM Note Text: [facility] Office Visit Documentation Note [facility] Sports Medicine Orthopaedic and Rheumatologic [place] HISTORY OF PRESENT ILLNESS (HPI) CHIEF COMPLAINT / REASON FOR VISIT SERVICE DATE: July 10, 2023 PCP: No primary care provider on file. Madyson Schmid is here today at request of Dr. Jose Armando Schmid specifically for consultation of my opinion in regards to the chief complaint listed below. Correspondence will be shared today via the [facility] electronic health record or through regular mail, where applicable. Mdayson Schmid is a 22 year old female [...] time, driving Activity level: Low Locking - araceli Coughlin reports a current pain level of 7 [...] expectations. She need to consider PT or program director/air personality. Reaction knee brace Consider [place] toradol, did discuss orthobiologics Follow up: Films prior to visit: Written instructions (see patient instructions) and verbal health education given to patient. Patient verbalizes understanding and agrees with the treatment plan. Jose Armando Grey D.O. [facility] Orthopaedic and Rheumatologic Packaging Assembler, [facility] Program Team Physician, [facility] Baseball Club Consulting Physician, [place] Martin Nagel, Print Shop Helper [phone] [facility] 07-10-2023 History of Present illness Narrative Images from the original note were not included. [facility] Office Visit Documentation Note [facility] Sports Medicine Orthopaedic and Rheumatologic [place] HISTORY OF PRESENT ILLNESS (HPI) CHIEF COMPLAINT / REASON FOR VISIT SERVICE DATE: July 10, 2023 PCP: No primary care provider on file. Madyson Schmid is here today at request of Dr. Jose Armando Schmid specifically for consultation of my opinion in regards to the chief complaint listed below. Correspondence will be shared today via the [employer] electronic health record or through regular mail, [...] expectations. She need to consider PT or program director/air personality. Reaction knee brace Consider IA toradol, did discuss orthobiologics Follow up: Films prior to visit: Written instructions (see patient instructions) and verbal health education given to patient. Patient verbalizes understanding and agrees with the treatment plan. Jose Armando Grey D.O. [facility] Orthopaedic and Rheumatologic Packaging Assembler, [facility] [employer] Program Team Physician, [facility] Baseball Club Consulting Physician, [place] Martin Nagel, Print Shop Helper [phone] documented in this encounter [facility] 12-28-2022 History of Present illness Narrative [...] surgery Evaluated by DR Case ([facility]) in 2020 no rheum issue found and [...] Swollen Glands: No documented in this encounter [facility] 07-31-2022 History of Present illness Narrative Madyson Schmid is a 21 year old female who presents for follow up: [facility]HE[facility] LABS negative sed rate and crp Negative RF and ccp Negative ARMAIN and JASON panel PREVIOUS DIAG rash , [...] surgery Evaluated by DR Case ([facility]) in 2020 no rheum issue found and [...] Swollen Glands: No documented in this encounter [facility] 07-10-2022 History of Present illness Narrative [...] she did get a second opinion in [place], and no change in medication was suggested [...] with paucity of objective findings on the [id number]. Abnormal tilt table test, with a combination [...] but I will defer that to Dr. Maza -[facility] DO Work Phone: 06-12-2022 Note Pre-procedure Verifi cation and Time Out: Pre-Procedure Verification and Time Out: Procedure Locationbedside PRE-PROCEDURE Verificationcompleted TIME OUT - Final Verificationcompleted immediately prior to procedure start General Information: Anesthesia Critical Care: Non-Anesthesia Date/Time of Procedure: 12-Jun-2022 Post-Procedure Diagnosis: syncope Procedure Name: tilt table test Findings: grossly normal anatomy Procedure performed by: mi Transport Engineer(s): none Estimated Blood Loss (mL): none Specimen: [...] the procedure without any complications or incident. EB 0cc Specimens obtained: No Prepared and signed by. Tolerance: good Complications: none Electronic Signatures: Annalee Maza) (Signed 14-Jun-2022 11:56) Authored: Pre-procedure Verification and Time Out, General Information, Procedure Details, Note Completion Last Updated: 14-Jun-2022 11:56 by Annalee Maza) [facility] 03-24-2022 History of Present illness Narrative Patient [...] while walking to the bathroom.She will see guidance director in the near future, she had her pulmonary function test which I reviewed, there is concern for chronic asthma, but no reactive airway disease.She has 3 dogs that she had, and 1 cat at home.She is not orthostatic. She is feeling palpitations quite a bit.Results of the pulmonary function test and a Micah of [place] was reviewed. Also reviewed stress test and [...] diameter 3.5 cm10. 30-day event monitor March 2022 patient triggered [...] that, we will have to schedule at [facility], and patient is okay with driving.4. Lifestyle modifications such as regular aerobic activity as tolerated, excessive sodium intake, and possibly low-dose beta-blockers can be tried. If her breathing gets worse on the beta-blockers, then she should stop it. We will decide after seen by pulmonary, and also after the results of culpable test are available. -[facility] DO Work Phone: 03-24-2022 History of Present [...] while walking to the bathroom.She will see guidance director in the near future, she had her pulmonary function test which I reviewed, there is concern for chronic asthma, but no reactive airway disease.She has 3 dogs that she had, and 1 cat at home.She is not orthostatic. She is feeling palpitations quite a bit.Results of the pulmonary function test and a Micah of [place] was reviewed. Also reviewed stress test and [...] that, we will have to schedule at [facility], and patient is okay with driving.4. Lifestyle modifications such as regular aerobic activity as tolerated, excessive sodium intake, and possibly low-dose beta-blockers can be tried. If her breathing gets worse on the beta-blockers, then she should stop it. We will decide after seen by pulmonary, and also after the results of culpable test are available. -[facility] DO Work Phone: 02-02-2022 Miscellaneous Notes Spoke [...] P Mathai, MD documented in this encounter [facility] 01-25-2022 History of Present illness Narrative [...] February Evaluated by DR Case ([facility]) in 2020 no rheum issue found and [...] February Evaluated by DR Case ([facility]) in 2020 no rheum issue found and [...] Irvin Hanna MD documented in this encounter [facility] 01-10-2022 Evaluation note Encounter Date Diagnosis Assessment Notes Dec, Skin rash (ICD-10 - R21) Dec, Other Transient recurrent color change management director the knees and toes I do not [...] will go ahead with her evaluation in [facility]. [facility] Other 01-17-2022 Evaluation note* Encounter Date Diagnosis [...] day as needed for pain and swelling. [facility] Other 07-01-2021 History of Present illness Narrative* [...] heart murmur and has been transferred to [facility] * There is no family history of [...] needed, treatment options, risks, benefits, and imponderables. [employer] lifestyle changes and behavioral modification discussed. All questions answered in detail. Counseling over 50% visit regarding above. Patientappreciative of care. * At the end the office visit, she did report that she will be seeing an home health specialist in [place]. We did discuss that she could hold [...] errors as software dictation application being used. -[facility] 320 DO Work Phone: [phone]) 369-384008-25-2020 History of Present illness Narrative* She is [...] exposed to secondhand smoke from her mother. [facility] [employer] DO Work Phone: [phone]) 266-293107-09-2020 History of Present illness Narrative* Patient is [...] twin brother had to be taken to [facility], and has history of heart murmur. [...] arise, * Sincerely, * Melodie alcaraz MD [facility] Work Phone: [phone]) 564-387107-01-2020 History of Present illness Narrative* Patient is [...] twin brother had to be taken to [facility], and has history of heart murmur. [...] arise, * Sincerely, * Melodie alcaraz MD [place] [address] DO Work Phone: [phone]) [phone] History of Present illness Narrative* Patient is [...] twin brother had to be taken to [facility], and has history of heart murmur. [...] arise, * Sincerely, * Melodie alcaraz MD [facility] DO Work Phone: [phone] History general Narrative - Reported* Type Description Date Medical History general health good Surgical History tonsillectomy and adenoidectomy 09/2007 [facility] Other 01-01-2008 History general Narrative - Reported* Type Description Date Medical History general health good Surgical History tonsillectomy and adenoidectomy 09/2007 Surgical History right knee cleaned up scar tiss ue 2020 [facility] Other Chief complaint Narrative - ReportedMADYSON SCHMID is being seen for a cardiovascular evaluation of abnormal test(s) results and dyspnea.[facility] DO Work Phone: Chihl complaint Narrative - ReportedMADYSON SCHMID is being seen for a cardiovascular evaluation of abnormal test(s) results and dyspnea.[facility] Work Phone: Evaluation + Plan note No data available for this section [facility] Pain and swelling of knee, right- Primary Joint stiffness Stiffness of joint, not elsewhere classified, unspecified site [facility] Work Phone: Evaluation note* Diagnosis Pain and swelling of knee, right- Primary Joint stiffness Stiffness of joint, not elsewhere classified, unspecified site Inflammatory arthritis Unspecified inflammatory polyarthropathy [facility] encounter [facility] Diagnosis Pain and swelling of knee, right- Primary Joint stiffness Stiffness of joint, not elsewhere classified, unspecified site [facility] Diagnosis Right knee pain, unspecified chronicity- Primary [facility] Diagnosis Chronic pain of right knee- Primary Tendinopathy of gluteal region Unspecified disorder of synovium, tendon, and bursa [facility]* Diagnosis Orthostatic lightheadedness- Primary Dizziness and giddiness [facility]* Diagnosis POTS (postural orthostatic tachycardia syndrome)- Primary Tachycardia, unspecified [facility] Diagnosis POTS (postural orthostatic tachycardia syndrome)- Primary Tachycardia, unspecified [facility] Diagnosis POTS (postural orthostatic tachycardia syndrome)- Primary Tachycardia, unspecified Near syncope Syncope and collapse [facility]* Diagnosis Second trimester state, incidental 14 weeks gestation of documented [facility]* The patient is [...] heart murmur and had been transferred to [facility] * There is no change in family [...] patient that she saw Dr. Muñiz at [facility] for second opinion regarding neurally mediated syncope and near syncope. He agreed with evaluation and management and patient opted to follow-up here at [facility] in [place]. * Zio patch August 2022. All rhythms [...] needed, treatment options, risks, benefits, and imponderables. [employer] lifestyle changes and behavioral modification discussed. All questions answered in detail. Counseling over 50% visit regarding above. Patient appreciative of care. * Grammar * Please excuse grammatical or dictation errors as software dictation application being used. [facility] 320 DO Work Phone: History of Present illness Narrative* The patient states she has been generally stable since the last visit. * Symptoms: denies chest pain at rest, denies exertional chest pain, denies dyspnea, stable fatigue, denies exercise intolerance, stable palpitations, denies edema, denies orthopnea, stable dizziness and stable orthostatic dizziness. * Disease Monitoring: [facility] 600 DO Work Phone: Hospital Discharge instructions No data available for this section [facility] CenterInstructionsNot on filedocumented in this encounter [facility] SystemProgress note No data available for this section [facility] CenterReason for referral (narrative)* Diagnostic Procedure Only (Routine) - Pending Review Specialty Diagnoses / Procedures Referred By Rachel lópez Referred To Contact XR IMAGING Diagnoses Right knee pain, unspecified chronicity Procedures XR KNEE GENERAL 4V AP BOTH/PA BOTH/LAT/MERC RIGHT RADIOLOGIC EXAM KNEE COMPLETE 4/[place] [address] [place] [address] [place] [id number] Referral ID Status Reason Start Date Expiration Date Visits Requested Visits Authorized [id number] Pending Review Auto-Generat ed Referral 3 08/04/2024 1 1 [facility] for visit Narrativerash knee referral from Cj Jaimes, She gets a funny rash on her knee and toesAvon [id number] | [employer] Other Summary Purpose Family History No Family [...] or prosecute any alcohol or drug abuse patient.[facility] HospitalIn the event this information is protected by the Federal Confidentiality of Alcohol and Drug Abuse Patient Records regulations: The Federal rules restrict any use of the information to criminally investigate or prosecute any alcohol or drug abuse patient.[facility] HospitalIn the event this information is protected by the Federal Confidentiality of Alcohol and Drug Abuse Patient Records regulations: The Federal rules restrict any use of the information to criminally investigate or prosecute any alcohol or drug abuse patient.[facility] HospitalIn the event this information is protected by the Federal Confidentiality of Alcohol and Drug Abuse Patient Records regulations: The Federal rules restrict any use of the information to criminally investigate or prosecute any alcohol or drug abuse patient.[facility] HospitalIn the event this information is protected by the Federal Confidentiality of Alcohol and Drug Abuse Patient Records regulations: The Federal rules restrict any use of the information to criminally investigate or prosecute any alcohol or drug abuse patient.[facility] HospitalIn the event this information is protected by the Federal Confidentiality of Alcohol and Drug Abuse Patient Records regulations: The Federal rules restrict any use of the information to criminally investigate or prosecute any alcohol or drug abuse patient.[facility] HospitalIn the event this information is protected by the Federal Confidentiality of Alcohol and Drug Abuse Patient Records regulations: The Federal rules restrict any use of the information to criminally investigate or prosecute any alcohol or drug abuse patient.[facility] HospitalIn the event this information is protected by the Federal Confidentiality of Alcohol and Drug Abuse Patient Records regulations: The Federal rules restrict any use of the information to criminally investigate or prosecute any alcohol or drug abuse patient.[facility] HospitalIn the event this information is protected by the Federal Confidentiality of Alcohol and Drug Abuse Patient Records regulations: The Federal rules restrict any use of the information to criminally investigate or prosecute any alcohol or drug abuse patient.[facility] HospitalIn the event this information is protected by the Federal Confidentiality of Alcohol and Drug Abuse Patient Records regulations: The Federal rules restrict any use of the information to criminally investigate or prosecute any alcohol or drug abuse patient.[facility] HospitalIn the event this information is protected by the Federal Confidentiality of Alcohol and Drug Abuse Patient Records regulations: The Federal rules restrict any use of the information to criminally investigate or prosecute any alcohol or drug abuse patient.[facility] Reason for Visit (unrecogniz ed section and content) Reason Comments New Patient Reason Comments Orders Reason Comments Follow Up Reason Comments 4 Month Follow Up Reason Onset Date Comments Referral Follow-up 07/20/2023 Reason Comments Procedure Reason Comments New Patient Consult Reason Comments Follow Up Reason Comments POTS Reason Comments Routine Visit INFORMATION SOURCE (unrecogn ized section and content) DATE CREATED AUTHOR 02/03/2022 [facility] DATE CREATED AUTHOR AUTHOR'S ORGANIZ ATION 06/24/2022 [facility] DATE CREATED AUTHOR AUTHOR'S ORGANIZ ATION 09/15/2022 [employer] DATE CREATED AUTHOR AUTHOR'S ORGANIZ ATION 03/16/2023 [facility] DATE CREATED AUTHOR AUTHOR'S ORGANIZ ATION 06/15/2023 [facility] DATE CREATED AUTHOR AUTHOR'S ORGANIZ ATION 07/11/2023 [facility] DATE CREATED AUTHOR AUTHOR'S ORGANIZ ATION 03/15/2024 [facility] DATE CREATED AUTHOR AUTHOR'S ORGANIZ ATION 04/15/2024 [facility] DATE CREATED AUTHOR AUTHOR'S ORGANIZ ATION 07/04/2024 [facility] DATE CREATED AUTHOR AUTHOR'S ORGANIZ ATION 07/06/2024 [facility] DATE CREATED AUTHOR AUTHOR'S ORGANIZ ATION 07/11/2024 [facility] DATE CREATED AUTHOR AUTHOR'S ORGANIZ ATION 07/26/2024 [facility] Care Teams (unrecognized sec tion and content) Team Status: Inactive Member Role Status Dates Ibis Renteria NP-Akila Primary Care Provider Activ JULIUS DowlingC Attending Provider Active Team Status: Inactive Member Role Status Dates Ibis Renteria , TIKA-Akila Primary Care Provider Activ venita Alcaraz MD Attending Provider Active Team Status: Inactive Member Role Status Dates Ibis Renteria , TIKA-C Primary Care Provider Activ e Melodie Alcaraz MD Attending Provider Active Álvaro Osborn MD Referring Provider Active Team Status: Active Member Role Status Dates Ibis Maggy Renteria , ROPE TWISTING MACHINE OPERATOR-C Primary Care Provider Activ e Team Status: Inactive Member Role Status Dates Ibis Maggy Renteria , ROPE TWISTING MACHINE OPERATOR-C Primary Care Provider Activ e Dyllan Pearce , ATOMIC PHYSICS TEACHER Emergency Provider Active Team Status: Inactive Member Role Status Dates Ibis Maggy Renteria , ROPE TWISTING MACHINE OPERATOR-C Primary Care Provider Activ e Christina Perez , ATOMIC PHYSICS TEACHER Attending Provider Active Team Status: Inactive Member Role Status Dates Ibis Maggy Renteria , ROPE TWISTING MACHINE OPERATOR-C Primary Care Provider Activ e Carlitos Nguyen Jr, DO Attending Provider Active Tile Inspector Relationship Specialty Start Date End Date Ibis Renteria CNP [address] [place] [address] PCP - General Nurse Practitioner 07/09/23 Tile Inspector Relationship Specialty Start Date End Date Ibis Renteria CNP [address] [place], [place] [id number] PCP - General Nurse Practitioner 07/09/23 Team Status: Inactive Member Role Status Dates Ibis Maggy Renteria , ROPE TWISTING MACHINE OPERATOR-C Primary Care Provider Activ e Haris Martino DO Emergency Provider Active Team Status: Inactive Member Role Status Dates Ibis Maggy Renteria , ROPE TWISTING MACHINE OPERATOR-C Primary Care Provider Activ e Nam Barnes DO [facility] Attending Provider Active Tile Inspector Relationship Specialty Start Date End Date Jb Mandujano MD [address] [facility] [address] [place] [address] PCP - General Family Medicine 05/20/24 Osei Malik DO [address] [place] [address] Referring Physician Obstetrics and Gynecology 06/05/24 Flori Gil PA [address] [place] [address] Physician Transport Engineer Obstetrics and Gynecology 06/05/24 Tile Inspector Relationship Specialty Start Date End Date Jb Mandujano MD [address] [address] PCP - General Family Medicine 05/20/24 Osei Malik DO [address] [place], [place] [id number] Referring Physician Obstetrics and Gynecology 06/05/24 Flori Gil PA [address] [place], [place] [id number] Physician Transport Engineer Obstetrics and Gynecology 06/05/24 Tile Inspector Relationship Specialty Start Date End Date Asuncion Boateng MD [address] [place] [id number] PCP - General 11/30/17 Goals (unrecognized section and content) Goals may [...] BE BASED ON THE PRIMARY CLINICAL RECORDS. [employer] provides no warranty or guarantee of the accuracy or completeness of information in this document."
== END 2024-08-05 21:53 | disposition home or self-care (01) ==
LOC: LAB 21:52
PROVIDERS: PCP Family Medicine; Visit Provider Physician Assistant
DX: Z01.419 Encounter for gynecological examination (general) (routine) without abnormal findings (principal)
CPT/HCPCS: 88175

== ENCOUNTER 2024-08-11 10:19 | Outpatient (OUT) | payer OTHER, SELFPAY ==
--- OUTSIDE RECORDS SUMMARY | 2024-08-11 10:43 | XMS_ITS | CCD ---
Author Organization [facility] CliniSyor Care Team Providers Care Boarding House Manager Name Role Phone Unavailable Primary Care Provider Unavailsoniya e Christina Pearce Unavailable Ok Mckeon Unavailable Ibis Renteria Unavailable [phone] Unavailable Unavailable CARLOS Renteria Primary Care Provider MD Melodie Alcaraz Attending Provider MD Álvaro Osborn Referring Provider CARLOS Davidson Attending Provider [phone] JOHNNY Pearce Emergency Provider Link, Dr. Annalee Torres Attending Unavailab celine Alcaraz, Dr. Sewell Referring Unavailable Myra, Ms. Ibis Winter Primary Care Unavail able Link, Dr. Annalee Torres Admitting Unavailab le Unavailable Primary Care Provider Unavailabl e Unavailable Primary Care Provider UnavailCARLOS Salas Primary Care Provider JOHNNY Perez Attending Provider [phone] CHAN MUÑIZ Attending UnavailIBIS Salas Referring Unavailable MYRA, IBIS Primary Care Unavailable IBIS RENTERIA Primary Care Unavailable SPRING UMAÑA Referring Unavailable CHAN MUÑIZ Attending UnavailCARLOS Salas Primary Care Provider DO Carlitos Nguyen Jr Attending Provider [phone] Link, Dr. Annalee Torres Attending Unavailab le Link, Dr. Annalee Torres Referring Unavailab le Myra, Ms. Ibis Winter Primary Care Unavail able Link, Dr. Annalee Torres Attending Unavailab le Link, Dr. Annalee Torres Referring Unavailab le Myra, Ms. Ibis Winter Primary Care Unavail able Link, Dr. Annalee Torres Attending Unavailab le Alcaraz, Dr. Sewell Referring Unavailable Myra, Ms. Ibis Winter Primary Care Unavail able Alcaraz, Dr. Sewell Attending Unavailable Alcaraz, Dr. Sewell Referring Unavailable Myra, Ms. Ibis Winter Primary Care Unavail able Link, Dr. Annalee Torres Attending Unavailab le Link, Dr. Annalee Torres Referring Unavailab le Myra, Ms. Ibis Winter Primary Care Unavail able Alcaraz, Dr. Sewell Attending Unavailable Alcraaz, Dr. Sewell Referring Unavailable Myra, Ms. Ibis Winter Primary Care Unavail able Tabatha Cota Attending Unavailable Alcaraz, Dr. Sewell Referring Unavailable Myra, Ms. Ibis Winter Primary Care Unavail able Alcaraz, Dr. Sewell Attending Unavailable Alcaraz, Dr. Sewell Referring Unavailable Myra, Ms. Ibis Winter Primary Care Unavail able JOSE ARMANDO GREY Attending Unavailable Myra Ibis GOODSON Primary Care Provider Myra, NURSE OB-C Ibis Winter Primary Care Provider DO Haris Martino Emergency Provider DO Nam Barnes Attending Provider JB MANDUJANO Primary Care Physician Rinkes, Celeste Admitting Unavailable Rinkes, Celeste Attending Unavailable Jocelin FELIX Attending Unavailable Mae, SPORTS PHYSICIAN Krista L Attending Unavailable Mae, SPORTS PHYSICIAN Krista L Attending Unavailable Unavailable Primary Care Provider Unavailabl e Rinkes, Celeste Attending Unavailable Rinkes, Celeste Admitting Unavailable Rinkes, Celeste Attending Unavailable Rinkes, Celeste Admitting Unavailable SANTIAGO, AURORA M Referring Unavailable SANTIAGO, AURORA M Referring Unavailable SANTIAGO, AURORA M Attending Unavailable JOIE SEAMAN Attending Unavailable NOBLE, JYOTI Attending Unavailable NOBLE, JYOTI Attending Unavailable SANTIAGO, AURORA M Referring Unavailable SANTIAGO, AURORA M Referring Unavailable Jb Mandujano MD Primary Care Provider [phone] Osei Malik DO Unavailable Flori Sam Unavailable Asuncion Boateng MD Primary [facility] Provider [facility] Un[facility] Admitting Unavailable Ibis Renteria Primary Care Unavailable Rinradha Celeste Attending Unavailable Rinradha, Celeste Admitting Unavailable RINRADHA CELESTE E Attending Unavailable CELESTE WATSON E Attending Unavailable JB MANDUJANO Attending Unavailable JB MANDUJANO Attending Unavailable MAURISIO GASTON Attending Unavailable OSEI MALIK Attending Unavailable FLORI GIL Attending Unavailable FLORI GIL Attending Unavailable Allergies Allergy Classification Reported Allergen(s) Allergy Type Date of Onset Reaction(s) Facility Acetaminophen / oxyCODONE (1 source) Acetaminophen / oxyCODONE; Translations: [acetaminophen-oxy codone] Drug Allergy [facility] Comment on above: no narcotics, GI ups et Chlorhexidine (1 source) Chlorhexidine; Translations: [chlorhexidine topical] Drug Allergy Itching [facility] Corticosteroids (1 source) predniSONE; Translations: [prednisone] Drug Allergy [facility] (14 sources) Morphinan opioid; Translations: [OPIOIDS - MORPHINE ANALOGUES] Propensity to adverse reactions to drug 01-26-20 Other: See Comments [facility] (20 sources) predniSONE; Translations: [predniSONE] Drug Allergy 01-26-20 Other: See Comments, Dizziness [facility] (7 sources) prednisoLONE; Translations: [prednisolone] Drug Allergy 01-11-20 22 GI Disturbance [facility] Other (15 sources) Fludrocortisone; Translations: [Florinef TABS] Drug Allergy Nausea -[facility] [address] DO Work Phone: (11 sources) Midodrine; Translations: [midodrine] Drug Allergy 08-13-20 23 GI bleeding [facility] (3 sources) Acetaminophen / oxyCODONE; Translations: [Percocet] Drug Allergy [facility] (4 sources) Chlorhexidine; Translations: [chlorhexidine topical] Drug Allergy Itching [facility] (2 sources) Acetaminophen / oxyCODONE; Translations: [acetaminophen-oxy codone] Drug Allergy 07-07-20 24 GI Disturbance [facility] [place] Comment on above: no narcotics, GI ups et (3 sources) Acetaminophen / oxyCODONE Drug Allergy 02-26-20 24 [facility] (4 sources) Chlorhexidine Drug Allergy 02-21-20 23 Itching [facility] Work Phone: (4 sources) Fludrocortisone Drug Allergy 07-26-20 22 Nausea [facility] (3 sources) Prednisone Allergy to substance 02-18-20 23 Dizziness [facility] (1 source) predniSONE Drug Allergy 06-08-20 23 [facility] Repository Medications Current Medications Medication Drug Class(es) Dates Sig (Normalized) Sig (Original) [id number] 200 actuat albuterol 0.09 mg/actuat metered dose inhaler (12 sources) beta2-Adrenergic Agonist Start: 03-13-2023 albuterol HFA [...] Ordered clomiPHENE citrate 50 mg oral tablet (4 sources) Estrogen Agonist/Antagonist Start: 4 CLOMID 50 mg tablet 100 mg. 02/22/2024 Active Crutches Underarm Crutches (2 sources) Start: 2 Start: 10-10-2021 Crutches Under arm Crutches 1 pair diagnosis: left ankle sprain Sep, Active Ethinyl Estradiol / norelgestromin (2 sources) Progestin, Estrogen Ortho Evra A ctive [place] (No Known Home Meds) (1 source) Start: 3 [place] (No Known Home Meds) Active June 08, 2023 12:00am omeprazole 40 mg delayed release oral capsule (2 sources) Proton Pump Inhibitor Start: 4 take 1 capsule by mouth once daily omeprazole 40 mg Cap-DR 40 mg = 1 cap(s), Oral, Daily, # 30 cap(s), Refills(s) 1, Pharmacy: [facility], 168.3, cm, 12/11/23 13:07:00 EDT, Height/Length Dosing, 93.6, kg, 12/11/23 13:07:00 EDT, Weight Dosing Start Date: 12/11/23 Status: Ordered no115/iron/folic acid ( 19 ORAL) (1 source) no115/iron/folic acid ( 19 ORAL) Take by mouth. Active Vit-Fe Fumarate-FA (M-Zak Plus) 27-1 MG tablet (3 sources) Start: 4 End: 5 take 1 tablet by mouth once daily Vit-Fe Fumarate-FA (M-Zak Plus) 27-1 MG tablet Indications: Patient desires Take 1 tablet by mouth Daily 30 tablet 11 06/06/2024 06/06/2025 Active Completed/Discontinued Medications Medication Drug [...] Start: 08-01-2022 take 1 capsule by mo [facility] three times daily Droxidopa 100 MG [...] Active Start: 07-10-2022 take 0.5 tablet by [facility] three times daily Midodrine HCl - 10 MG Oral Tablet TAKE 0.5 TABLET 3 TIMES DAILY Quantity: 135 Refills: 3 Ordered: 01-Aug-2022 Annalee Maza MD Start : 10-Jul-2022 Active Start: 07-10-2022 take 1 tablet by [facility] three times daily Midodrine HCl - 10 MG Oral Tablet TAKE 1 TABLET 3 TIMES DAILY. Quantity: 270 Refills: 3 Ordered: 21-Jul-2022 Annalee Maza MD Start : 10-Jul-2022 Active Dose increase Start: 07-10-2022 take 1 tablet by [facility] three times daily Midodrine HCl - 5 [...] (4 sources) Leukotriene Receptor Antagonist Start: 11-18-19 22 take 1 tablet by mouth once [...] UA Negative Negative - 4(70) +++ mg/dL [facility] Blood, UA Negative Negative - 50 Vasu/mcL [facility] Clarity, UA Clear [facility] Color, UA Yellow [facility] Glucose, UA Positive Negative - 2000(110) ++++ mg/dL [facility] Comment on above: 500 Interpretation and review of laboratory results Abnormal [facility] Ketones, UA Negative Negative - 160(16) ++++ mg/dL [facility] Leukocytes, UA Negative Negative - 500+++ Conrad/mcL [facility] Nitrite, UA Negative Negative - Positive [facility] pH, UA 6.0 5 - 9 [facility] Protein, UA Negative Negative - 2000(20) ++++ mg/dL [facility] Spec Grav, UA 1.015 1 - 1.03 [facility] Urobilinogen, UA 0.2 0.2 - 12 mg/dL [facility] CBC without diffon Hematocrit (Bld) [Volume fraction] 38.7 % [facility] Hemoglobin (Bld) [Mass/Vol] 13.5 g/dL [facility] CHEMISTRYOrdered By: SYSTEM SYSTEM on 04-12-2024 Progesterone [...] Progesterone Lvl 31.70 ng/mL Invalid Interpretation Code [facility] Comment on above: Result Comment: 'F N ON FOLLICULAR = 0.10 - 0.60' 'LUTEAL = 3.00 - 17.5' 'MIDLUTEAL = 3.30 - 18.6' 'POST-MENOPAUSE = 0.10 - 0.40' '-FIRST TRIMESTER = 8.30 - 66.5' 'SECOND TRIMESTER = 18.9 - 66.1' 'THIRD TRIMESTER = 35.8 - 312.4' 'MALES = 0.14 - 2.06' Performed By: #### 2 [id number] #### [facility] [address] [place] [address] CHEMISTRYOrdered By: SYSTEM SYSTEM on 03-14-2024 Progesterone [...] Consent for Treatmenton 02-23 Consent for Treatment [id number]#[id number] Normal [facility] Physician Orderon 03-14-2024 Physician Order [id number]#[id number] Normal [facility] Progesteroneon 03-14-2024 Progesterone Lvl 16.15 ng/mL Invalid Interpretation Code [facility] Comment on above: Result Comment: 'F N ON FOLLICULAR = 0.10 - 0.60' 'LUTEAL = 3.00 - 17.5' 'MIDLUTEAL = 3.30 - 18.6' 'POST-MENOPAUSE = 0.10 - 0.40' '-FIRST TRIMESTER = 8.30 - 66.5' 'SECOND TRIMESTER = 18.9 - 66.1' 'THIRD TRIMESTER = 35.8 - 312.4' 'MALES = 0.14 - 2.06' Performed By: #### 2 [id number] #### [facility] [address] [place] [address] Ambulatory Visit Summaryon 0 12-11-2023 Ambulatory Visit [...] 11:20 AM EDT With: Krista Daley Where: [facility] [place] Normal [facility] Family Medicine Office/Clini c Noteon 12-11-2023 Family Medicine Office/Clinic Note HPI Staff Madyson is a 23 year old female presenting to establish care Establish Care: History: Any previous diagnosis: POTS (11/30/23) History of seeing any specialist: Jyoti Dickey [facility] 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 BMI 33.0-33.9,adult (Z68.33: Body mass index [BMI] 33.0-33.9, adult) BMI education complete Ordered: omeprazole, 40 mg = 1 cap(s), Oral, Daily, # 30 cap(s), Refills(s) 1, Pharmacy: [facility], 168.3, cm, 12/11/23 13:07:00 EDT, Height/Length Dosing, 93.6, kg, 12/11/23 13:07:00 EDT, Weight Dosing 3. Class 1 obesity due to excess calories in adult (E66.09: Other obesity due to excess calories) see above Ordered: omeprazole, 40 mg = 1 cap(s), Oral, Daily, # 30 cap(s), Refills(s) 1, Pharmacy: [facility], 168.3, cm, 12/11/23 13:07:00 EDT, Height/Length Dosing, 93.6, kg, 12/11/23 13:07:00 EDT, Weight Dosing 4. Nonsmoker (Z78.9: Other specified health status) continue not smoking Ordered: omeprazole, 40 mg = 1 cap(s), Oral, Daily, # 30 cap(s), Refills(s) 1, Pharmacy: [facility], 168.3, cm, 12/11/23 13:07:00 EDT, Height/Length [...] 03/05/2002 Recorded (more content not included)... Normal [facility] Comment on above: Result Comment: Elec tronically Signed By: Krista Daley\.br\Date and Time Signed: 12/11/23 13:32 EDT CNOVon 11-30-2023 CNOV Office Visit (NENMMN ) ----- MADYSON MAI ([id number]) 2 F Date Time Provider Department 11/30/23 10:00 AM [facility]I DICKEY [facility] During your visit today, we recorded the following information about you: Pulse Blood pressure Weight Height 84/minute 118/79 93 kg 1.651 m Jyoti Dickey PA-C 11/30/2023 11:14 AM Signed [facility] New Patient Evaluation [...] experienced LOC while walking up the stairs. [place] prodromal symptoms including lightheadedness and tunnel vision. [...] Urination: + (more content not included)... Normal [facility] ECHOon 11-12-2023 Echocardiography Echocardiography Rep ort: Transthoracic Echo [facility] A17 Date of service: 11/12/2023 1:08:10 PM RISK AND ASSURANCE SENIOR MANAGER Ordering physician: AURORA SANTIAGO Indication: Initial evaluation [...] * * Final * * * CC [facility] : [id number] Normal [facility] CNOVon 10-10-2023 CNOV Office Visit (NEADMN ) ----- MADYSON MAI ([id number]) 2 F Date Time Provider Department 10/10/23 2:00 PM AURORA SANTIAGO During your visit today, we recorded the following information about you: Pulse Blood pressure Weight Height 108/minute 119/85 93 kg 1.651 m Aurora Santiago PA-C 10/10/2023 4:33 PM Signed [facility] New Patient Evaluation [...] diameter 3.5 cm 30-day event monitor March 2022- patient triggered [...] on BC (more content not included)... Normal [facility] Quantiferon-TB Plus (Client Incubated)on 07-26-2023 Gamma interferon background IA Qn (Bld) 0.01 International_Unit/mL Invalid Interpretation Code [facility] Comment on above: Performed By: #### 1 [id number], [id number], [id number] #### [facility] [address] [place] [address] M. tuberculosis stim IFN-g by CD4+ CD8+ T-cells Qn (Bld) 0.30 International_Unit/mL Invalid Interpretation Code [facility] Comment on above: Performed By: #### 1 [id number] #### [facility] [address] [place] [address] M. tuberculosis stim IFN-g by CD4+ T-cells Qn (Bld) 0.23 International_Unit/mL Invalid Interpretation Code [facility] Comment on above: Performed By: #### 1 [id number], [id number], [id number] #### [facility] [address] [place], [place] [id number] M. tuberculosis stim IFN-g Ql (Bld) [Interp] Negative Invalid Interpretation Code Negative [facility] Comment on above: Result Comment: No r [...] interferon gamma. Chemiluminescence immunoassay methodology Performed at: [address] [id number] PhD Rubio Vinson Performed By: #### 1 [id number], [id number] #### [facility] [address] [place] [address] Mitogen stimulated gamma interferon Qn (Bld) >10.00 Invalid Interpretation Code [facility] Comment on above: Performed By: #### 1 [id number], [id number] #### [facility] [address] [place] [address] Service comment (Unsp spec) [Interp] Comment Invalid Interpretation Code [facility] Comment on above: Result Comment: Link [email or web address] [...] for the test. Performed By: #### 1 [id number], [id number], [id number], [id number] #### [facility] [address] [place] [address] Hep Bs Abon 07-25-2023 HBV surface Ab Ql (S) Non-Reactive Invalid Interpretation Code [facility] Comment on above: Result Comment: Non Reactive: Inconsistent with immunity, less than 10 mIU/mL Reactive: Consistent with immunity, greater than 9.9 mIU/mL Performed at: [address] [id number] PhD Rubio Vinson Performed By: #### 1 [id number], [id number], [id number], [id number] #### [facility] [address] [place] [address] Measles/Mumps/Rubella Immuni tyon 07-25-2023 MeV IgG IA Qn (S) 34.3 A unit/mL Invalid Interpretation Code Immune >16.4 [facility] Comment on above: Result Comment: Nega tive <13.5 Equivocal 13.5 - 16.4 Positive >16.4 Presence of antibodies to Rubeola is presumptive evidence of immunity except when acute infection is suspected. Performed By: #### 1 [id number], [id number], [id number], [id number] #### [facility] [address] [place] [address] MuV IgG IA Qn (S) <9.0 Low Immune >10.9 [facility] Comment on above: Result Comment: Nega tive <9.0 Equivocal 9.0 - 10.9 Positive >10.9 A positive result generally indicates past exposure to Mumps virus or previous vaccination. Performed at: [facility] [address] [place], [place] [id number] PhD Rubio Vinson Performed By: #### 1 [id number], [id number], [id number], [id number] #### [facility] [address] [place] [address] Rubella virus IgG Qn (S) 1.53 [IU]/mL Invalid Interpretation Code Immune >0.99 [facility] Comment on above: Result Comment: Non- immune <0.90 Equivocal 0.90 - 0.99 Immune >0.99 Performed By: #### 1 [id number], [id number], [id number], [id number] #### [facility] [address] [place] [address] Varic IgGon 07-25-2023 VZV IgG IA Qn (S) 475 Invalid Interpretation Code Immune >165 [facility] Comment on above: Result Comment: Nega tive <135 Equivocal 135 - 165 Positive >165 A positive result generally indicates exposure to the pathogen or administration of specific immunoglobulins, but it is not indication of active infection or stage of disease. Performed at: [facility] [address] [place] [address] [id number] PhD Rubio Vinson Performed By: #### 1 [id number], [id number], [id number] #### [facility] [address] [place] [address] CNOVon 07-10-2023 CNOV Office Visit (ORFWHP ) ----- MADYSON SCHMID ([id number]) 2 F Date Time Provider Department 07/10/23 9:40 AM [facility] During your visit today, we recorded the following information about you: Jose Armando Grey, 07/10/2023 10:08 AM Signed [facility] Office Visit Documentation Note [facility] Sports Medicine Orthopaedic and Rheumatologic [place] HISTORY OF PRESENT ILLNESS (HPI) CHIEF COMPLAINT / REASON FOR VISIT SERVICE DATE: July 10, 2023 PCP: No primary care provider on file. Madyson Schmid is here today at request of Dr. Jose Armando Schmid specifically for consultation of my opinion in regards to the chief complaint listed below. Correspondence will be shared today via the [employer] electronic health record or through regular mail, where applicable. aMdyson Schmid is a 22 year old female [...] expectations. 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 Reaction knee brace Consider [place] toradol, did discuss orthobiologics Follow up: Films prior to visit: Written instructions (see patient instructions) and verbal health education given to patient. Patient verbalizes understanding and agrees with the treatment plan. Jose Armando Grey D.O. [facility] Orthopaedic and Rheumatologic Crop Pest Control Specialist, [place] [facility] AND T.E.A.M. Program Team Physician, [facility] Baseball Club Consulting Physician, [place] Martin Nagel, Light Equipment Operator [phone] Referring Provider: SELF [200] Allergies As of [...] Level of (more content not included)... [facility] Tobacco Screening.on 023 Adult depression screening assessment No -[facility] [address] DO Work Phone: Tobacco use status [facility] b) No -[facility] [address] DO Work Phone: Activated partial thrombopla stin time (aPTT) in platelet poor plasma by coagulation aOrdered By: Haris Martino on 06-08-2023 aPTT Coag (PPP) [Time] 28.9 s 25.1-36.5 [facility] Comment on above: A hematocrit value g reater than 55% may lead to inaccurate results in coagulation testing. Patients having hematocrit values >55% require a special collection tube for coagulation studies. Please contact the laboratory at [phone] for redraw instructions. Alanine aminotransferase [En zymatic activity/volume] in Serum or PlasmaOrdered By: Haris Martino on 06-08-2023 ALT [Catalytic activity/Vol] 42 U/L 7-52 [facility] Albumin [Mass/volume] in Ser um or Plasma by Bromocresol green (BCG) dye binding methoOrdered By: Haris Martino on 06-08-2023 Albumin BCG dye [Mass/Vol] 4.6 g/dL 3.5-5.7 [facility] Alkaline phosphatase [Enzyma tic activity/volume] in Serum or PlasmaOrdered By: Haris Martino on 06-08-2023 ALP [Catalytic activity/Vol] 78 U/L 34-104 [facility] Aspartate aminotransferase [ Enzymatic activity/volume] in Serum or PlasmaOrdered By: Haris Martino on 06-08-2023 AST [Catalytic activity/Vol] 22 U/L 13-39 [facility] Automated erythrocytes count in urine sediment (number/area)Ordered By: Haris Martino on 06-08-2023 RBC Auto (Urine sed) [#/Area] 5-9 [HPF] 0-4 [facility] Automated leukocytes count i n urine sediment (number/area)Ordered By: Haris Martino on 06-08-2023 WBC Auto (Urine sed) [#/Area] 3-4 [HPF] 0-4 [facility] Basophils Auto (Bld) [#/Vol] Ordered By: Haris Martino on 06-08-2023 Basophils (Bld) [#/Vol] 0.1 10*3/uL 0.0-0.2 [facility] Basophils/100 WBC Auto (Bld) Ordered By: Haris Martino on 06-08-2023 Basophils/100 WBC (Bld) 1.0 % . [facility] Bilirubin Test strip Ql (U)O rdered By: Haris Martino on 06-08-2023 Bilirubin Ql (U) Negative Negative [facility] Bilirubin.direct [Mass/volum e] in Serum or PlasmaOrdered By: Haris Martino on 06-08-2023 Bilirubin.direct [Mass/Vol] 0.10 mg/dL 0.03-0.18 [facility] Bilirubin.total [Mass/volume ] in Serum or PlasmaOrdered By: Haris Martino on 06-08-2023 Bilirubin [Mass/Vol] 0.4 mg/dL 0.3-1.0 [place] Calcium [Mass/volume] in Ser um or PlasmaOrdered By: Haris Martino on 06-08-2023 Calcium [Mass/Vol] 9.4 mg/dL 8.6-10.3 [facility] Carbon dioxide, total [Moles /volume] in Serum or PlasmaOrdered By: Haris Martino on 06-08-2023 CO2 [Moles/Vol] 29.3 mmol/L 21.0-31.0 [facility] Chloride [Moles/volume] in S colin or PlasmaOrdered By: Haris Martino on 06-08-2023 Chloride [Moles/Vol] 104 mmol/L 98-107 [place] Color Auto (U)Ordered By: Terrell Martino on 06-08-2023 Color (U) Yellow Yellow [facility] Creatine kinase [Enzymatic a ctivity/volume] in Serum or PlasmaOrdered By: Haris Martino on 06-08-2023 CK [Catalytic activity/Vol] 55 U/L 30-223 [facility] Creatinine [Mass/volume] in Serum or PlasmaOrdered By: Haris Martino on 06-08-2023 Creatinine [Mass/Vol] 0.64 mg/dL 0.60-1.20 [facility] Eosinophils Auto (Bld) [#/Vo l]Ordered By: Haris Martino on 06-08-2023 Eosinophils (Bld) [#/Vol] 0.1 10*3/uL 0.0-0.45 [facility] Eosinophils/100 WBC Auto (Bl d)Ordered By: Haris Martino on 06-08-2023 Eosinophils/100 WBC (Bld) 0.8 % . [facility] Erythrocyte distribution wid th Auto (RBC) [Ratio]Ordered By: Haris Martino on 06-08-2023 Erythrocyte distribution width (RBC) [Ratio] 12.9 % 11.9-15.3 [facility] Fibrin D-dimer [Presence] in Platelet poor plasma by Latex agglutinationOrdered By: Haris Martino on 06-08-2023 Fibrin D-dimer LA Ql (PPP) < 200 ng/mL 0-243 [facility] Comment on above: The reference range for [...] coagulation studies. Please contact the laboratory at [phone] for redraw instructions. Globulin Calc (S) [Mass/Vol] Ordered By: Haris Martino on 06-08-2023 Globulin (S) [Mass/Vol] 2.9 g/dL [facility] Glucose [Mass/volume] in Ser um or PlasmaOrdered By: Haris Martino on 06-08-2023 Glucose [Mass/Vol] 79 mg/dL 70-100 [facility] Comment on above: ADA recommended refe rence rangeRandom Glucose Reference Range is dependent on time and content of last meal. Glucose of more than 200 mg/dL in a nonstressed, ambulatory subject supports the diagnosis of Diabetes Mellitus. HCG ( test) IA.rapi d Ql (U)Ordered By: Haris Martino on 06-08-2023 HCG ( test) Ql (U) Negative [facility] Hematocrit Auto (Bld) [Volum e fraction]Ordered By: Haris Martino on 06-08-2023 Hematocrit (Bld) [Volume fraction] 42.4 % 34.0-46.4 [facility] Hemoglobin [Mass/volume] in BloodOrdered By: Haris Martino on 06-08-2023 Hemoglobin (Bld) [Mass/Vol] 14.5 g/dL 11.8-15.4 [facility] INR in Platelet poor plasma by Coagulation assayOrdered By: Haris Martino on 06-08-2023 INR Coag (PPP) [Relative time] 1.0 {INR} [facility] Comment on above: INR Therapeutic Rang e [...] on 06-08-2023 Ketones (U) [Mass/Vol] Negative Negative [facility] Laboratory - UrinalysisOrder ed By: Haris Martino on 06-08-2023 Hyaline casts LM Ql (Urine sed) 0-8 [LPF] 0-8 [facility] Leukocytes [#/volume] correc matt for nucleated erythrocytes in Blood by Automated counOrdered By: Haris Martino on 06-08-2023 WBC corrected for nucl RBC Auto (Bld) [#/Vol] 8.3 10*3/uL 3.8-11.6 [facility] Lymphocytes Auto (Bld) [#/Vo l]Ordered By: Haris Martino on 06-08-2023 Lymphocytes (Bld) [#/Vol] 3.0 10*3/uL 1.00-4.8 [facility] Lymphocytes/100 WBC Auto (Bl d)Ordered By: Haris Martino on 06-08-2023 Lymphocytes/100 WBC (Bld) 36.0 % . [facility] MCH Auto (RBC) [Entitic mass ]Ordered By: Haris Martino on 06-08-2023 MCH (RBC) [Entitic mass] 29.4 pg 24.7-34.3 [facility] MCHC Auto (RBC) [Mass/Vol]Or dered By: Haris Martino on 06-08-2023 MCHC (RBC) [Mass/Vol] 34.2 g/dL 32.0-35.0 [facility] MCV Auto (RBC) [Entitic vol] Ordered By: Haris Martino on 06-08-2023 MCV (RBC) [Entitic vol] 85.9 fL 80-100 [facility] Monocyte distribution width [Entitic volume] in Blood by AutomatedOrdered By: Haris Martino on 06-08-2023 Monocyte distribution width Auto (Bld) [Entitic vol] 18.39 % 0.00-20.00 [facility] Monocytes Auto (Bld) [#/Vol] Ordered By: Haris Martino on 06-08-2023 Monocytes (Bld) [#/Vol] 0.5 10*3/uL 0.0-0.8 [facility] Monocytes/100 WBC Auto (Bld) Ordered By: Haris Martino on 06-08-2023 Monocytes/100 WBC (Bld) 6.6 % . [facility] Natriuretic peptide B [Mass/ Vol]Ordered By: Haris Martino on 06-08-2023 Natriuretic peptide B (Bld) [Mass/Vol] 9.0 pg/mL 5-100 [facility] Neutrophils Auto (Bld) [#/Vo l]Ordered By: Haris Martino on 06-08-2023 Neutrophils (Bld) [#/Vol] 4.6 10*3/uL 1.8-7.7 [facility] Neutrophils/100 WBC Auto (Bl d)Ordered By: Haris Martino on 06-08-2023 Neutrophils/100 WBC (Bld) 55.6 % . [facility] Nitrite Test strip Ql (U)Ord ered By: Haris Martino on 06-08-2023 Nitrite Ql (U) Negative Negative [facility] No Panel InformationOrdered By: Haris Martino on 06-08-2023 Estimated GFR (CKD-EPI) > 60.0 mL/Min [facility] Creatinine Clearance (Chem 155.50 [facility] Nucleated erythrocytes [Pres ence] in Blood by Automated countOrdered By: Haris Martino on 06-08-2023 Nucleated RBC Auto Ql (Bld) 0.1 /100{WBC} 0-0.5 [facility] Platelet mean volume Auto (B ld) [Entitic vol]Ordered By: Haris Martino on 06-08-2023 Platelet mean volume (Bld) [Entitic vol] 8.2 fL 6.3-10.7 [facility] Platelets Auto (Bld) [#/Vol] Ordered By: Haris Martino on 06-08-2023 Platelets (Bld) [#/Vol] 225 10*3/uL 150-450 [facility] Potassium [Moles/volume] in Serum or PlasmaOrdered By: Haris Martino on 06-08-2023 Potassium [Moles/Vol] 4.0 mmol/L 3.5-5.1 [facility] Protein Auto test strip (U) [Mass/Vol]Ordered By: Haris Martino on 06-08-2023 Protein (U) [Mass/Vol] Negative Negative [facility] Protein [Mass/volume] in Ser um or PlasmaOrdered By: Haris Maritno on 06-08-2023 Protein [Mass/Vol] 7.5 g/dL 6.4-8.9 [facility] Prothrombin time (PT)Ordered By: Haris Martino on 06-08-2023 PT Coag (PPP) [Time] 12.2 s 9.0-12.9 [place] Comment on above: A hematocrit value g reater than 55% may lead to inaccurate results in coagulation testing. Patients having hematocrit values >55% require a special collection tube for coagulation studies. Please contact the laboratory at [phone] for redraw instructions. RBC Auto (Bld) [#/Vol]Ordere d By: Haris Martino on 06-08-2023 RBC (Bld) [#/Vol] 4.94 10*6/uL 3.60-5.00 [facility] Serum or plasma albumin/glob ulin mass ratioOrdered By: Haris Martino on 06-08-2023 Albumin/Globulin [Mass ratio] 1.6 {ratio} [facility] Serum or plasma anion gap de terminationOrdered By: Haris Martino on 06-08-2023 Anion gap [Moles/Vol] 9.7 mmol/L 6.0-15.0 [facility] Serum or plasma non-glucuron idated bilirubin measurement (mass/volume)Ordered By: Haris Martino on 06-08-2023 Bilirubin.indirect [Mass/Vol] 0.3 mg/dL [facility] Sodium [Moles/volume] in Ser um or PlasmaOrdered By: Haris Martino on 06-08-2023 Sodium [Moles/Vol] 139 mmol/L 136-145 [facility] Specific gravity Auto test s trip (U) [Rel density]Ordered By: Haris Martino on 06-08-2023 Specific gravity (U) [Rel density] 1.015 1.001-1.03 0 [facility] Squamous epithelial cells de tection in urine sediment by light microscopyOrdered By: Haris Martino 06-08-2023 Epithelial cells.squamous LM Ql (Urine sed) 3-4 [HPF] 0-2 [facility] Troponin I.cardiac [Mass/vol ume] in Serum or Plasma by Detection limit <= 0.01 ng/Ordered By: Haris Martino on 06-08-2023 Troponin I.cardiac DL <= 0.01 ng/mL [Mass/Vol] < 2.3 pg/mL 0.0-15.0 [facility] Urea nitrogen [Mass/volume] in Serum or PlasmaOrdered By: Haris Martino on 06-08-2023 Urea nitrogen [Mass/Vol] 10 mg/dL 7 [facility] Urine bacteria detection by automated methodOrdered By: Haris Martino on 06-08-2023 Bacteria Auto Ql (U) 1+ None Seen [place] Urine clarity by refractomet ry automatedOrdered By: Haris Martino on 06-08-2023 Clarity Refractometry automated (U) Clear Clear [facility] Urine glucose measurement by automated test strip (mass/volume)Ordered By: Haris Martino on 06-08-2023 Glucose Auto test strip (U) [Mass/Vol] Normal mg/dL Normal [facility] Urine hemoglobin detection b y automated test stripOrdered By: Haris Martino on 06-08-2023 Hemoglobin Auto test strip Ql (U) Negative Negative [facility] Urine leukocyte esterase det ection by automated test stripOrdered By: Haris Martino on 06-08-2023 Leukocyte esterase Auto test strip Ql (U) 1+ Negative [facility] Urobilinogen Auto test strip (U) [Mass/Vol]Ordered By: Haris Martino on 06-08-2023 Urobilinogen (U) [Mass/Vol] Normal mg/dL Normal [facility] WBC Auto (Bld) [#/Vol]Ordere d By: Haris Martino on 06-08-2023 WBC (Bld) [#/Vol] 8.3 10*3/uL 3.8-11.6 [facility] pH Auto test strip (U)Ordere d By: Haris Martino on 06-08-2023 pH (U) 6.5 [pH] 5.0-9.0 [facility] Alanine aminotransferase [En zymatic activity/volume] in Serum or PlasmaOrdered By: Carlitos Nguyen on 04-25-2023 ALT [Catalytic activity/Vol] 18 U/L [facility] Albumin [Mass/volume] in Ser um or Plasma by Bromocresol green (BCG) dye binding methoOrdered By: Carlitos Nguyen on 08-02-2023 Albumin BCG dye [Mass/Vol] 4.8 g/dL 3.5-5.7 [facility] Alkaline phosphatase [Enzyma tic activity/volume] in Serum or PlasmaOrdered By: Carlitos Nguyen on 04-25-2023 ALP [Catalytic activity/Vol] 73 U/L 34-104 [facility] Aspartate aminotransferase [ Enzymatic activity/volume] in Serum or PlasmaOrdered By: Carlitos Nguyen on 04-25-2023 AST [Catalytic activity/Vol] 18 U/L 13-39 [facility] Bilirubin.total [Mass/volume ] in Serum or PlasmaOrdered By: Carlitos Nguyen on 04-25-2023 Bilirubin [Mass/Vol] 0.5 mg/dL 0.3-1.0 [place] Calcium [Mass/volume] in Ser um or PlasmaOrdered By: Carlitos Nguyen on 04-25-2023 Calcium [Mass/Vol] 9.9 mg/dL 8.6-10.3 [facility] Carbon dioxide, total [Moles /volume] in Serum or PlasmaOrdered By: Carlitos Nguyen on 04-25-2023 CO2 [Moles/Vol] 25.9 mmol/L 21.0-31.0 [facility] Chloride [Moles/volume] in S colin or PlasmaOrdered By: Carlitos Nguyen on 04-25-2023 Chloride [Moles/Vol] 105 mmol/L 98-107 [place] Cholesterol [Mass/volume] in Serum or PlasmaOrdered By: Carlitos Nguyen on 04-25-2023 Cholesterol [Mass/Vol] 208 mg/dL 140-200 [facility] Comment on above: Chol less than 200 m g/dl low riskChol 201-239 mg/dl borderline riskChol 240 mg/dl and greater high risk Cholesterol in LDL Calc [Mas s/Vol]Ordered By: Carlitos Nguyen on 04-25-2023 Cholesterol in LDL [Mass/Vol] 136 mg/dL 0-100 [facility] Comment on above: LDL ATP III CLASSIFI CATIONLDL less than 100 mg/dL OptimalLDL 100-129 mg/dL Near or above optimalLDL 130-159 mg/dL Borderline highLDL 160-189 mg/dL HighLDL greater than 189 mg/dL Very high Cholesterol in VLDL Calc [Ma ss/Vol]Ordered By: Carlitos Nguyen on 04-25-2023 Cholesterol in VLDL [Mass/Vol] 16 mg/dL [facility] Creatinine [Mass/volume] in Serum or PlasmaOrdered By: Carlitos Nguyen on 04-25-2023 Creatinine [Mass/Vol] 0.81 mg/dL 0.60-1.20 [facility] Globulin Calc (S) [Mass/Vol] Ordered By: Carlitos Nguyen on 04-25-2023 Globulin (S) [Mass/Vol] 2.6 g/dL [facility] Glucose [Mass/volume] in Ser um or PlasmaOrdered By: Carlitos Nguyen on 04-25-2023 Glucose [Mass/Vol] 84 mg/dL 70-100 [facility] No Panel InformationOrdered By: Carlitos Nguyen on 04-25-2023 Estimated GFR (CKD-EPI) > 60.0 mL/Min [facility] Creatinine Clearance (Chem N/A [facility] Potassium [Moles/volume] in Serum or PlasmaOrdered By: Carlitos Nguyen on 04-25-2023 Potassium [Moles/Vol] 4.3 mmol/L 3.5-5.1 [facility] Comment on above: Hemolysis is present at a level that could interfere with the result. Protein [Mass/volume] in Ser um or PlasmaOrdered By: Carlitos Nguyen on 04-25-2023 Protein [Mass/Vol] 7.4 g/dL 6.4-8.9 [facility] Serum or plasma albumin/glob ulin mass ratioOrdered By: Carlitos Nguyen on 04-25-2023 Albumin/Globulin [Mass ratio] 1.8 {ratio} [facility] Serum or plasma anion gap de terminationOrdered By: Carlitos Nguyen on 04-25-2023 Anion gap [Moles/Vol] 12.4 mmol/L 6.0-15.0 [facility] Serum or plasma high density lipoprotein (HDL) cholesterol measurementOrdered By: Carlitos Nguyen on 04-25-2023 Cholesterol in HDL [Mass/Vol] 55 mg/dL 23-92 [facility] Comment on above: HDL CHOL ATP-III CLA SSIFICATION Cardiovascular RiskHDL > or equal to 60 mg/dL LOWHDL < 40 mg/dL HIGH Serum or plasma total choles terol/high density lipoprotein (HDL) cholesterol mass ratOrdered By: Carlitos Nguyen on 04-25-2023 Cholesterol.total/Chol esterol in HDL [Mass ratio] 3.8 {ratio} <5.0 [facility] Sodium [Moles/volume] in Ser um or PlasmaOrdered By: Carlitos Nguyen on 04-25-2023 Sodium [Moles/Vol] 139 mmol/L 136-145 [facility] Triglyceride [Mass/volume] i n Serum or PlasmaOrdered By: Carlitos Nguyen on 04-25-2023 Triglyceride [Mass/Vol] 83 mg/dL 0-149 [facility] Comment on above: TRIG ATP III CLASSIF ICATIONTRIG less than 150 mg/dL NormalTRIG 150-199 mg/dL Borderline highTRIG 200-500 mg/dL High TRIG greater than 500 mg/dL Very highStandard traceable to the Center for Disease Conrtrol and Prevention (CDC) test method. Urea nitrogen [Mass/volume] in Serum or PlasmaOrdered By: Carlitos Nguyen on 04-25-2023 Urea nitrogen [Mass/Vol] 15 mg/dL 7-25 [facility] Tobacco Screening.on 023 Adult depression screening assessment No [facility] [employer] [facility] 320 DO Work Phone: Fall risk assessment a) No falls within the last year [facility] [employer] 320 DO Work Phone: Tobacco use status CP b) No [facility] 320 DO Work Phone: Office Visit (Cardiology)on [...] in adult Healthy Weight Tips; Status:Complete; Done: [id number] SocHx: Never a smoker Tobacco Use Screening; Status:Complete; Done: [id number] Patient Instructions Please bring all medicines, vitamins, [...] she did get a second opinion in [place], and no change in medication was suggested [...] sinus sometime (more content not included)... Normal [place] Tobacco Screening.on 022 Tobacco use status [facility] b) No -[facility] [facility] 250 DO Work Phone: Cardiovasc Arrhythmia Result son 07-31-2022 Cardiovasc Arrhythmia Results Reason For Visit MADYSON is here for the application of a [employer] monitor. Ordering Physician: Dr. Maza Diagnosis: abn TTT, dyspnea, syncope, autonomic orthostatic hypotension [facility] equipment agreement signed. MADYSON understands monitor is to be returned on: 08/14/22 Monitor number [id number] applied. Procedure Date I received for dictation [...] MD; Aug 28 2022 10:26AM EST Normal [facility] Office Visit (Cardiology)on 07-21-2022 Follow-up visit Diagnoses/Problems [...] with Dr. Chan Jiang in 1 week. ITammy CMA, am scribing for and in the presence of, Dr. Annalee Maza, MA, FACC, FACP, RS. Chief Complaint Abnormal Tilt and syncope Adult [...] heart murmur and has been transferred to [facility] There is no family history of SIDS, sudden cardiac , long QT, pacemaker, defibrillator, or drowning. Past medical history of NICOLE in August 2021 Acute on chronic knee pain with scar tissue found at time of surgery. She inquires what is an incomplete right bundle branch block. We discussed what is normal conduction in but ECG patterns show. Personal review of ECG and cardiac data (more content not included)... Normal [facility] Tobacco Screening.on 022 Fall risk assessment b) One or more fall s in the last year [facility] [employer] DO Work Phone: Tobacco use status [facility] b) No [facility] [employer] 320 DO Work Phone: Office Visit (Cardiology)on [...] Confirmed - N/A AMA Intake updated by [facility]) on 2022-07-11 22:02 New Recipient: Annalee Maza Appointment Date: 2022-07-21 07:20 Autonomic orthostatic hypotension, Syncope, unspecified syncope type Changed: From To Midodrine HCl - 10 MG Oral Tablet TAKE 1 TABLET 3 TIMES DAILY Class 1 obesity with body mass index (BMI) of 31.0 to 31.9 in adult Avoid getting up or changing positions quickly.; Status:Complete; Done: [id number] Healthy Weight Tips; Status:Complete; Done: 05Ees2153 Some eating tips that can help you lose weight.; Status:Complete; Done: 01Fyc0135 Dyspnea (786.09) (R06.00) Class 1 obesity with [...] from 6 (more content not included)... Normal [facility] Tobacco Screening.on 022 Tobacco use status [facility] b) No -[facility] y 250 DO Work Phone: COVID CepheidOrdered By: Daniele Pearce on 06-01-2022 SARS-CoV-2 (COVID-19) Ab IA Ql Negative Negative [facility] Comment on above: This is a duplicate [employer] Xpert Xpress CoV-2/Flu/RSV Plus RNA by RT-PCR result to be used for statistical tracking purpose only. SARS-CoV-2 (COVID-19) RNA PERFECTO+probe Ql (Unsp spec) [facility] Office Visit (Cardiology)on 05-18-2022 Follow-up visit Diagnoses/Problems [...] in adult Healthy Weight Tips; Status:Complete; Done: 69Dyf5739 Some eating tips that can help you lose weight.; Status:Complete; Done: 45Gwv7085 Dyspnea, Syncope, unspecified syncope type Urine Test; Status:Active - Retrospective By Protocol Authorization; Requested for:[id number]; Palpitation Start: Atenolol 25 MG Oral Tablet; TAKE 1 TABLET DAILY Syncope, unspecified syncope type Tilt Table; Status:Hold For - Scheduling,Retrospective By Protocol Authorization; Requested for:[id number]; Patient Instructions Please bring all medicines, vitamins, [...] walking to the bathroom. She will see book reviewer in the near future, she had her pulmonary function test which I reviewed, there is concern for chronic asthma, but no reactive airway disease. She has 3 dogs that she had, and 1 cat at home. She is not orthostatic. She is feeling palpitations quite a bit. Results of the pulmonary function test and a Micah of [employer] was reviewed. Also reviewed stress test and [...] 3.5 c (more content not included)... Normal [facility] Tobacco Screening.on 022 Tobacco use status [facility] b) No [facility] [facility] 250 DO Work Phone: No Panel Informationon 05-03 LUIGI-[facility] [facility] 250 DO Work Phone: -[facility] [facility] 250 DO Work Phone: Cardiovasc Arrhythmia Result son 03-28-2022 Cardiovasc Arrhythmia Results Reason For Visit Event Monitor: MADYSON is here for the application of a 30 day event monitor in office., Diagnosis: Palps, Dyspnea, Chest pain Ordering Physician: MG Malone sent to: [employer] Monitor number [id number] applied. Holter monitor printed and placed on [...] (R00.2) Future Appointments Date/TimeProviderSpecialt ySite 05/03/2022 10:00 AMTraMaría Elena brady MDCardiologySurgery [facility] 05/18/2022 09:15 Melodie Sylvester MDCardiology703 [facility] [address] 250 DO Signatures Electronically signed by : Melodie Alcaraz MD; May 01 2022 7:56PM EST (Author) Normal [facility] - Chemistry and C hemistry - challengeOrdered By: Melodie Alcaraz on 03-24-2022 Natriuretic peptide B (Bld) [Mass/Vol] 27.0 pg/mL 5-100 [facility] No Panel InformationOrdered By: Melodie Alcaraz on 03-24-2022 D-Dimer Quantitative (PE/DVT) < 200 ng/mL 0-243 [facility] Comment on above: The reference range for [...] No Panel Informationon 03-24 0.70\S\0.70 Normal 0.45-5.33 -[facility] [facility] 250 DO Work Phone: Comment on above: PERFORMED BY:[facility] [place], [place] [phone] MEDICAL DIRECTOROFE ELLIS M.D. 0.99\S\0.99 Normal 0.61-1.12 [facility] [facility] 250 DO Work Phone: 27.0\S\27.0 Normal 5-100 [facility] 250 DO Work Phone: Comment on above: PERFORMED BY:[facility] [place], [place] [phone] MEDICAL DIRECTOROFE ELLIS M.D. < 200 Normal 0-243 [facility]anydooRE[facility]ent[facility] y 250 DO Work Phone: Comment on [...] in hospitalized patients due to co-morbid conditions.PERFORMED BY:[place] [id number] [place] [phone] MEDICAL DIRECTOROFE ELLIS M.D. TSH DL <= 0.005 mIU/L QnOrde red By: Melodie Alcaraz on 03-24-2022 TSH Qn 0.70 m[IU]/L 0.45-5.33 [facility] Thyroxine (T4) free [Mass/vo lume] in Serum or PlasmaOrdered By: Melodie Alcaraz on 03-24-2022 Free T4 [Mass/Vol] 0.99 ng/dL 0.61-1.12 [facility] Office Visit (Cardiology)on 03-23-2022 Follow-up [...] Patient Instructions By signing my name below, IMargarita LPN, Scribe, attest that this documentation has [...] [facility] and has history of heart murmur. Patient [...] frequently pic (more content not included)... Normal [employer] PHQ-2 VITALSon 03-23-2022 Adult depression screening assessment No [facility] [facility] 250 DO Work Phone: Fall risk assessment c) Not medically indicated [facility] [facility] 250 DO Work Phone: Tobacco use status [facility] b) No [facility] [facility] 250 DO Work Phone: ARMANI BY IFA WITH REFLEXon Nuclear Ab IF (S) [Titer] Negative Negative [facility] CCP ANTIBODY IGGon Cyclic citrullinated peptide IgG Qn <15 <20 Units [facility] Cyclic citrullinated peptide IgG Qnon 01-26-2022 CCP Antibody IgG Qualitative Negative Negative [facility] Nuclear Ab IA Ql (S)on 01-26 ARMANI by EIA, Qual Negative Negative [facility] ARMANI BY IFA WITH REFLEXon Nuclear Ab IF (S) [Titer] Negative Normal Negative [facility] Comment on above: Order Comment: Speci men Type: BLOOD SPECIMEN Ordering Facility: [facility] Address: [address] [place] [address] Result Comment: Anti -nuclear antibody test is used as an aid in diagnosis of systemic autoimmune diseases. Where positive and clinically warranted, follow-up using disease-specific testing is recommended. Low positive titers are not uncommon with advanced age, certain chronic infections, and malignancies among others. Test methodology: Indirect fluorescence immunoassay (IFA) using HEp-2 cells. Performed By: #### A NAIFR #### [facility] CLIA [id number] [address] [place] [address] [place] [address] [place] C-REACTIVE PROTEIN (CRP)on 0 01-25-2022 CRP [Mass/Vol] 0.4 mg/dL <0.9 mg/dL [facility] C1 ESTERASE INHIBITon 2021 C1 ESTERASE INHIBIT 26 mg/dL Normal 21-38 [facility] Comment on above: Order Comment: Jose Carlos oseguera Type: BLOOD SPECIMEN Ordering Facility: [facility] Address: [address] [place] [address] Result Comment: Perf ormed By: [employer] [address] [place], [place] [id number] Manufacturing Tech: Brittni Moscoso MD Performed By: #### 1 6570-4, 90301-5, 58030-5, 55248-2, 30902-1, 31145-5, 62585-7, 50589-5 #### [facility] CLIA [id number] [address] [place] [address] [place] C2 COMPLEMENT BLDon 01-26-20 22 C2 COMPLEMENT 2.4 mg/dL Normal 1.6-4.0 [facility] Comment on above: Order Comment: Jose Carlos oseguera Type: BLOOD SPECIMEN Ordering Facility: [facility] Address: [address] [place] [address] Result Comment: INTE RPRETIVE INFORMATION: Complement Component 2 Decreased C2 levels may be associated with increased susceptibility to infection (especially pneumococcal infections), systemic lupus erythematosus-like disease, rashes, arthritis and nephritis, and with C1-Esterase deficiency. Increased C2 levels are associated with the acute phase response. This test was developed and its performance characteristics determined by [employer]. It has not been cleared or approved by the [place] Food and Drug Administration. This test was performed in a CLIA certified laboratory and is intended for clinical purposes. Performed By: [employer] [facility] [address] [place], [place] [id number] Manufacturing Tech: Brittni Moscoso MD Performed By: #### 1 6570-4, 00363-4, 49804-6, 56125-8, 97720-5, 26201-8, 09798-7, 14141-2 #### [facility] CLIA [id number] [address] [place] [address] [place] C3 COMPLEMENT BLDon 01-26-20 22 Complement C3 [Mass/Vol] 130 mg/dL 86 - 166 mg/dL [facility] C3 SerPl-ncon 01-25-2022 Complement C3 [Mass/Vol] 130 mg/dL Normal 86-166 [facility] Comment on above: Order Comment: Speci men Type: BLOOD SPECIMEN Ordering Facility: [facility] Address: [address] [place] [address] Performed By: #### 1 6570-4, 11805-3, 56198-5, 02414-8, 08767-7, 78320-3, 02864-0, 43983-6 #### [facility] CLIA [id number] [address] [place] [address] [place] C4 COMPLEMENT BLDon 01-26-20 Complement C4 [Mass/Vol] 30 mg/dL 13 - 46 mg/dL [facility] C4 [facility] 01-25-2022 Complement C4 [Mass/Vol] 30 mg/dL Normal 13-46 [facility] Comment on above: Order Comment: Speci men Type: BLOOD SPECIMEN Ordering Facility: [facility] Address: [address] [place] [address] Performed By: #### 1 6570-4, 75753-4, 57225-2, 74485-4, 70545-0, 29461-2, 77164-6, 34350-7 #### [facility] CLIA [id number] [address] [place] [address] [place] CBC panel Auto (Bld)on 01-25 Erythrocyte distribution width (RBC) [Ratio] 12.1 % Normal 11.5-15.0 [facility] Comment on above: Order Comment: Speci men Type: BLOOD SPECIMEN Ordering Facility: [facility] Address: [address] [place] [address] Performed By: #### 1 6570-4, 99302-5, 31948-4, 27905-2, 82164-8, 89026-1, 84096-7, 41148-1 #### [facility] CLIA [id number] [address] [place] [address] [place] Hematocrit (Bld) [Volume fraction] 42.6 % Normal 36.0-46.0 [facility] Comment on above: Order Comment: Speci men Type: BLOOD SPECIMEN Ordering Facility: [facility] Address: [address] [place] [address] Performed By: #### 1 6570-4, 54125-3, 65581-7, 12003-5, 29261-1, 23440-7, 15598-9, 09178-5 #### [facility] CLIA [id number] [address] [place] [address] [place] Hemoglobin (Bld) [Mass/Vol] 13.8 g/dL Normal 11.5-15.5 [facility] Comment on above: Order Comment: Speci men Type: BLOOD SPECIMEN Ordering Facility: [facility] Address: [address] [place] [address] Performed By: #### 1 6570-4, 67044-2, 92071-1, 91808-7, 04665-4, 15921-3, 34115-0, 33515-9 #### [facility] CLIA [id number] [address] [place] [address] [place] MCH (RBC) [Entitic mass] 28.3 pg Normal 26.0-34.0 [facility] Comment on above: Order Comment: Speci men Type: BLOOD SPECIMEN Ordering Facility: [facility] Address: [address] [place] [address] Performed By: #### 1 6570-4, 53845-7, 02435-9, 83800-1, 11985-9, 84923-3, 46244-6, 39711-7 #### [facility] CLIA [id number] [address] [place] [address] [place] MCHC (RBC) [Mass/Vol] 32.4 g/dL Normal 30.5-36.0 [facility] Comment on above: Order Comment: Speci men Type: BLOOD SPECIMEN Ordering Facility: [facility] Address: [address] [place] [address] Performed By: #### 1 6570-4, 03283-0, 15103-2, 61566-1, 98034-7, 89583-8, 69947-3, 76245-1 #### [facility] CLIA [id number] [address] [place] [address] [place] MCV (RBC) [Entitic vol] 87.3 fL Normal 80.0-100.0 [facility] Comment on above: Order Comment: Speci men Type: BLOOD SPECIMEN Ordering Facility: [facility] Address: [address] [place] [address] Performed By: #### 1 6570-4, 82227-8, 97032-8, 19580-7, 14564-9, 72617-9, 87678-4, 09099-4 #### [facility] CLIA [id number] [address] [place] [address] [place] Nucleated RBC (Bld) [#/Vol] 10*3/uL Normal <0.01 [facility] Comment on above: Order Comment: Speci men Type: BLOOD SPECIMEN Ordering Facility: [facility] Address: [address] [place] [address] Performed By: #### 1 6570-4, 56806-1, 82567-2, 61941-6, 27019-8, 71543-5, 32952-2, 88359-5 #### [facility] CLIA [id number] [address] [place] [address] [place] Platelet mean volume (Bld) [Entitic vol] 10.3 fL Normal 9.0-12.7 [facility] Comment on above: Order Comment: Speci men Type: BLOOD SPECIMEN Ordering Facility: [facility] Address: [address] [place] [address] Performed By: #### 1 6570-4, 48483-3, 99560-0, 23529-2, 65647-3, 19109-8, 99523-7, 70527-9 #### [facility] CLIA [id number] [address] [place] [address] [place] Platelets (Bld) [#/Vol] 213 10*3/uL Normal 150-400 [facility] Comment on above: Order Comment: Speci men Type: BLOOD SPECIMEN Ordering Facility: [facility] Address: [address] [place] [address] Performed By: #### 1 6570-4, 73390-3, 24780-1, 47489-6, 65376-4, 32523-9, 84821-5, 73493-5 #### [facility] CLIA [id number] [address] [place] [address] [place] RBC (Bld) [#/Vol] 4.88 10*6/uL Normal 3.90-5.20 [facility] Comment on above: Order Comment: Speci men Type: BLOOD SPECIMEN Ordering Facility: [facility] Address: [address] [place] [address] Performed By: #### 1 6570-4, 86403-6, 78394-8, 98604-4, 76359-6, 30034-8, 00466-6, 95116-6 #### [facility] CLIA [id number] [address] [place] [address] [place] WBC (Bld) [#/Vol] 4.77 10*3/uL Normal 3.70-11.00 [facility] Comment on above: Order Comment: Speci men Type: BLOOD SPECIMEN Ordering Facility: [facility] Address: [address] [place] [address] Performed By: #### 1 6570-4, 26781-2, 52164-8, 25949-6, 53780-2, 86427-8, 51280-6, 81439-8 #### [facility] CLIA [id number] [address] [place] [address] [place] Erythrocyte distribution width (RBC) [Ratio] 12.1 % 11.5 - 15.0 % [facility] Hematocrit (Bld) [Volume fraction] 42.6 % 36.0 - 46.0 % [facility] Hemoglobin (Bld) [Mass/Vol] 13.8 g/dL 11.5 - 15.5 g/dL [facility] MCH (RBC) [Entitic mass] 28.3 pg 26.0 - 34.0 pg [facility] MCHC (RBC) [Mass/Vol] 32.4 g/dL 30.5 - 36.0 g/dL [facility] MCV (RBC) [Entitic vol] 87.3 fL 80.0 - 100.0 fL [facility] Nucleated RBC (Bld) [#/Vol] 10*3/uL <0.01 k/uL [facility] Platelet mean volume (Bld) [Entitic vol] 10.3 fL 9.0 - 12.7 fL [facility] Platelets (Bld) [#/Vol] 213 10*3/uL 150 - 400 k/uL [facility] RBC (Bld) [#/Vol] 4.88 10*6/uL 3.90 - 5.20 m/uL [facility] WBC (Bld) [#/Vol] 4.77 10*3/uL 3.70 - 11.00 k/uL [facility] CRP SerPl-ncon 01-25-2022 CRP [Mass/Vol] 0.4 mg/dL Normal <0.9 [facility] Comment on above: Order Comment: Speci men Type: BLOOD SPECIMEN Ordering Facility: [facility] Address: [address] [place], [place] [address] Performed By: #### 1 6570-4, 76768-4, 91671-6, 50970-6, 84156-1, 72396-0, 76584-6, 35299-2 #### [facility] CLIA [id number] [address] [place] [address] [place] Centromere Ab IF Ql (S)on Centromere Ab Qn (S) <0.2 Normal <1.0 [facility] Comment on above: Order Comment: Speci men Type: BLOOD SPECIMEN Ordering Facility: [facility] Address: [address] [place] [address] Result Comment: Anti -centromere antibody is used as in aid in diagnosis of systemic sclerosis. Clinical correlation is required. Test Methodology: Multiplex flow immunoassay. Performed By: #### 1 6570-4, 32933-4, 19213-7, 74513-9, 92492-5, 30533-3, 93078-2, 57246-2 #### [facility] CLIA [id number] [address] [place] [address] [place] CENTROMERE AB QUAL Negative Normal Negative [facility] Comment on above: Order Comment: Speci men Type: BLOOD SPECIMEN Ordering Facility: [facility] Address: [address] [place] [address] Performed By: #### 1 6570-4, 35998-8, 98324-4, 22094-8, 42461-1, 26491-6, 45451-4, 01043-7 #### [facility] CLIA [id number] [address] [place] [address] [place] Chromatin Ab Qnon 01-25-2022 CHROMATIN AB QUAL Negative Normal Negative [facility] Comment on above: Order Comment: Speci men Type: BLOOD SPECIMEN Ordering Facility: [facility] Address: [address] [place] [address] Performed By: #### 1 6570-4, 54982-8, 34683-7, 36424-1, 14074-4, 16891-7, 74173-4, 47105-0 #### [facility] CLIA [id number] [address] [place] [address] [place] Chromatin Ab SerPl-aCncon Chromatin Ab Qn <0.2 Normal <1.0 [facility] Comment on above: Order Comment: Speci men Type: BLOOD SPECIMEN Ordering Facility: [facility] Address: [address] [place] [address] Result Comment: Test Methodology: Multiplex flow immunoassay. Performed By: #### 1 6570-4, 72096-6, 09494-0, 38267-7, 59597-4, 94096-3, 16420-1, 00601-3 #### [facility] CLIA [id number] [address] [place] [address] OF [facility] Comprehensive metabolic 2000 panelon 01-25-2022 Albumin [Mass/Vol] 4.5 g/dL 3.9 - 4.9 g/dL [facility] ALP [Catalytic activity/Vol] 65 U/L 34 - 123 U/L [facility] ALT [Catalytic activity/Vol] 14 U/L 7 - 38 U/L [facility] Anion gap [Moles/Vol] 11 mmol/L 9 - 18 mmol/L [facility] AST [Catalytic activity/Vol] 14 U/L 13 - 35 U/L [facility] Bilirubin [Mass/Vol] 0.3 mg/dL 0.2 - 1 .3 mg/dL [facility] Calcium [Mass/Vol] 9.5 mg/dL 8.5 - 10. 2 mg/dL [facility] Chloride [Moles/Vol] 105 mmol/L 97 - 10 5 mmol/L [facility] CO2 [Moles/Vol] 26 mmol/L 22 - 30 mmol/L [facility] Creatinine [Mass/Vol] 0.71 mg/dL 0.58 - 0.96 mg/dL [facility] Estimated Glomerular Filtration Rate 125 mL/min/1.73m >=60 mL/min/1.7 3m [facility] Glucose [Mass/Vol] 94 mg/dL 74 - 99 mg/dL [facility] Potassium [Moles/Vol] 4.6 mmol/L 3.7 - 5.1 mmol/L [facility] Protein [Mass/Vol] 7.2 g/dL 6.3 - 8.0 g/dL [facility] Sodium [Moles/Vol] 142 mmol/L 136 - 144 mmol/L [facility] Urea nitrogen [Mass/Vol] 8 mg/dL 7 - 21 mg/dL [facility] Albumin [Mass/Vol] 4.5 g/dL Normal 3.9-4.9 [facility] Comment on above: Order Comment: Speci men Type: BLOOD SPECIMEN Ordering Facility: [facility] Address: [address] [place] [address] Performed By: #### 1 6570-4, 80219-6, 53032-9, 62611-1, 81996-8, 00253-4, 29817-3, 62718-4 #### [facility] CLIA [id number] [address] [place] [address] [place] ALP [Catalytic activity/Vol] 65 U/L Normal 34-123 [facility] Comment on above: Order Comment: Speci men Type: BLOOD SPECIMEN Ordering Facility: [facility] Address: [address] [place] [address] Performed By: #### 1 6570-4, 53053-8, 73681-1, 94999-1, 35434-1, 09694-3, 02498-2, 83158-1 #### [facility] CLIA [id number] [address] [place] [address] [place] ALT [Catalytic activity/Vol] 14 U/L Normal 7-38 [facility] Comment on above: Order Comment: Speci men Type: BLOOD SPECIMEN Ordering Facility: [facility] Address: [address] [place] [address] Performed By: #### 1 6570-4, 65353-0, 66180-2, 98416-6, 40947-3, 06262-3, 85975-3, 58974-2 #### [facility] CLIA [id number] [address] [place] [address] [place] Anion gap [Moles/Vol] 11 mmol/L Normal 9-18 [facility] Comment on above: Order Comment: Speci men Type: BLOOD SPECIMEN Ordering Facility: [facility] Address: [address] [place] [address] Performed By: #### 1 6570-4, 45758-1, 00862-2, 34985-4, 92516-1, 18217-0, 01881-4, 95328-7 #### [facility] CLIA [id number] [address] [place] [address] [place] AST [Catalytic activity/Vol] 14 U/L Normal 13-35 [facility] Comment on above: Order Comment: Speci men Type: BLOOD SPECIMEN Ordering Facility: [facility] Address: [address] [place] [address] Performed By: #### 1 6570-4, 57551-1, 17166-1, 28537-7, 18934-2, 14247-2, 33341-4, 71649-8 #### [facility] CLIA [id number] [address] [place] [address] [place] Bilirubin [Mass/Vol] 0.3 mg/dL Normal 0.2-1.3 [facility] Comment on above: Order Comment: Speci men Type: BLOOD SPECIMEN Ordering Facility: [facility] Address: [address] [place] [address] Performed By: #### 1 6570-4, 93648-0, 97725-2, 62122-0, 20620-4, 64578-6, 49080-9, 44038-8 #### [facility] CLIA [id number] [address] [place] [address] [place] Calcium [Mass/Vol] 9.5 mg/dL Normal 8.5-10.2 [facility] Comment on above: Order Comment: Speci men Type: BLOOD SPECIMEN Ordering Facility: [facility] Address: [address] [place] [address] Performed By: #### 1 6570-4, 96628-5, 54740-4, 11868-7, 12942-6, 91713-5, 10138-1, 05931-0 #### [facility] CLIA [id number] [address] [place] [address] [place] Chloride [Moles/Vol] 105 mmol/L Normal 97-105 [facility] Comment on above: Order Comment: Speci men Type: BLOOD SPECIMEN Ordering Facility: [facility] Address: [address] [place] [address] Performed By: #### 1 6570-4, 67306-4, 19439-4, 50911-8, 94926-2, 54312-2, 29185-6, 01273-4 #### [facility] CLIA [id number] [address] [place] [address] [place] CO2 [Moles/Vol] 26 mmol/L Normal 22-30 [facility] Comment on above: Order Comment: Speci men Type: BLOOD SPECIMEN Ordering Facility: [facility] Address: [address] [place] [address] Performed By: #### 1 6570-4, 58179-4, 32809-6, 88161-6, 06755-3, 92009-0, 83044-4, 93422-6 #### [facility] CLIA [id number] [address] [place] [address] [place] Creatinine [Mass/Vol] 0.71 mg/dL Normal 0.58-0.96 [facility] Comment on above: Order Comment: Speci men Type: BLOOD SPECIMEN Ordering Facility: [facility] Address: [address] [place] [address] Performed By: #### 1 6570-4, 86165-9, 47363-2, 57498-9, 75738-0, 52221-6, 35724-0, 87500-3 #### [facility] CLIA [id number] [address] [place] [address] [place] ESTIMATED GLOMERULAR FILTRATION RATE 125 mL/min/1.73m??? Normal >=60 [facility] Comment on above: Order Comment: Speci men Type: BLOOD SPECIMEN Ordering Facility: [facility] Address: [address] [place], [place] [id number] Result Comment: Francesca mated Glomerular Filtration Rate [...] actual GFR. Performed By: #### 1 6570-4, 63978-1, 40348-1, 65930-8, 61102-5, 88331-4, 13585-6, 37882-9 #### [facility] CLIA [id number] [address] [place] [address] [place] Glucose [Mass/Vol] 94 mg/dL Normal 74-99 [facility] Comment on above: Order Comment: Jose Carlos oseguera Type: BLOOD SPECIMEN Ordering Facility: [facility] Address: [address] [place] [address] Result Comment: The [place] [employer] (ADA) provides guidance for cutoff [...] Standards of Medical Care in Diabetes 2016, [place] [employer]. Diabetes Care. 2016.39(Suppl 1). Performed By: #### 1 6570-4, 83648-0, 89206-1, 97707-1, 60334-0, 83669-0, 19234-9, 76758-8 #### [facility] CLIA [id number] [address] [place] [address] [place] Potassium [Moles/Vol] 4.6 mmol/L Normal 3.7-5.1 [facility] Comment on above: Order Comment: Jose Carlos oseguera Type: BLOOD SPECIMEN Ordering Facility: [facility] Address: [address] [place] [address] Performed By: #### 1 6570-4, 29496-7, 52029-0, 13154-6, 32440-5, 19962-7, 26275-6, 58076-0 #### [facility] CLIA [id number] [address] [place] [address] [place] Protein [Mass/Vol] 7.2 g/dL Normal 6.3-8.0 [facility] Comment on above: Order Comment: Speci men Type: BLOOD SPECIMEN Ordering Facility: [facility] Address: [address] [place] [address] Performed By: #### 1 6570-4, 56096-2, 76258-7, 04439-4, 27762-0, 89888-9, 86944-4, 93798-9 #### [facility] CLIA [id number] [address] [place] [address] [place] Sodium [Moles/Vol] 142 mmol/L Normal 136-144 [facility] Comment on above: Order Comment: Speci men Type: BLOOD SPECIMEN Ordering Facility: [facility] Address: [address] [place] [address] Performed By: #### 1 6570-4, 10449-9, 36970-1, 00250-1, 86533-9, 34756-3, 71320-6, 75976-1 #### [facility] CLIA [id number] [address] [place] [address] [place] Urea nitrogen [Mass/Vol] 8 mg/dL Normal 7-21 [facility] Comment on above: Order Comment: Speci men Type: BLOOD SPECIMEN Ordering Facility: [facility] Address: [address] [place] [address] Performed By: #### 1 6570-4, 12060-4, 17643-8, 87327-7, 56299-0, 10614-1, 18188-4, 58526-4 #### [facility] CLIA [id number] [address] [place] [address] [place] Cyclic citrullinated peptide IgG Qnon 01-25-2022 CCP ANTIBODY IGG QUALITATIVE Negative Normal Negative [facility] Comment on above: Order Comment: Speci men Type: BLOOD SPECIMEN Ordering Facility: [facility] Address: [address] [place] [address] Performed By: #### 1 6570-4, 32046-1, 81851-1, 17477-1, 47909-4, 98325-9, 37911-9, 76693-8 #### [facility] CLIA [id number] [address] [place] [address] [place] JASON Jo1 Ab Ser-aCncon 2021 Yuly-1 extractable nuclear Ab Qn (S) <0.2 Normal <1.0 [facility] Comment on above: Order Comment: Speci men Type: BLOOD SPECIMEN Ordering Facility: [facility] Address: [address] [place] [address] Performed By: #### 1 6570-4, 53920-2, 84385-0, 94210-8, 47029-7, 20154-5, 29807-9, 03637-4 #### [facility] CLIA [id number] [address] [place] [address] OF [place] JASON BUSINESS DEVELOPMENT DIRECTOR Ab Ser-aCncon 2021 Ribonucleoprotein extractable nuclear Ab Qn (S) <0.2 Normal <1.0 [facility] Comment on above: Order Comment: Speci men Type: BLOOD SPECIMEN Ordering Facility: [facility] Address: [address] [place] [address] Performed By: #### 1 6570-4, 63660-6, 17981-9, 70379-9, 95900-5, 06994-7, 99025-8, 50923-0 #### [facility] CLIA [id number] [place] SM IgG Ser-aCncon 2021 Cota extractable nuclear IgG Qn (S) <0.2 Normal <1.0 [facility] Comment on above: Order Comment: Speci men Type: BLOOD SPECIMEN Ordering Facility: [facility] Address: [address] [place] [address] Performed By: #### 1 6570-4, 92825-9, 62041-3, 99827-5, 45392-3, 62977-6, 00003-3, 99318-5 #### [facility] CLIA [id number] [address] [place] [address] [place] SS-A Ab Ser-aCncon 01-25 Sjogrens syndrome-A extractable nuclear Ab Qn (S) <0.2 Normal <1.0 [facility] Comment on above: Order Comment: Speci ana rosa Type: BLOOD SPECIMEN Ordering Facility: [facility] Address: [address] [place] [address] Result Comment: Test Methodology: Multiplex flow immunoassay. Performed By: #### 1 6570-4, 51848-7, 89027-3, 43129-5, 11595-8, 41853-7, 22633-3, 36881-5 #### [facility] CLIA [id number] [address] [place] [address] OF [place] SS-B Ab Ser-aCncon 01-25 Sjogrens syndrome-B extractable nuclear Ab Qn (S) <0.2 Normal <1.0 [facility] Comment on above: Order Comment: Speci [facility] Type: BLOOD SPECIMEN Ordering Facility: [facility] Address: [address] [place] [address] Result Comment: Anti -SSB (anti-La) antibody is used as an aid in diagnosis of a variety of systemic autoimmune diseases, especially for Sjogren's syndrome and systemic lupus erythematosus. Clinical correlation is required. Test Methodology: Multiplex flow immunoassay. Performed By: #### 1 6570-4, 54555-9, 88009-0, 33734-9, 88557-4, 33388-3, 39232-2, 33599-5 #### [facility] CLIA [id number] [address] [place] [address] [place] ESR Westergren method (Bld) [Velocity]on 01-25-2022 ESR (Bld) [Velocity] 2 mm/h 0 - 20 mm/hr [facility] ESR (Bld) [Velocity] 2 mm/h Normal 0-20 [facility] Comment on above: Order Comment: Speci men Type: BLOOD SPECIMEN Ordering Facility: [facility] Address: [address] [place] [address] Performed By: #### 1 6570-4, 87758-1, 05317-5, 47556-8, 51558-3, 76374-9, 51906-3, 65585-6 #### [facility] CLIA [id number] [address] [place] [address] [place] HBV core Ab Ser Qlon 022 HBV core Ab Ql (S) Negative Normal Negative [facility] Comment on above: Order Comment: Jose Carlos oseguera Type: BLOOD SPECIMEN Ordering Facility: [facility] Address: [address] [place] [address] Result Comment: No e vidence of current or past infection with Hepatitis B virus. Should recent infection be suspected, repeat testing may be considered 3-4 weeks after this draw. Performed By: #### 1 6570-4, 67009-8, 39424-4, 80739-1, 17800-5, 87611-7, 71232-1, 51048-6 #### [facility] CLIA [id number] [address] [place] [address] [place] HBV surface Ab IA Ql (S)on 0 01-25-2022 HBV surface Ag Ql (S) Negative Normal Negative [facility] Comment on above: Order Comment: Jose Carlos oseguera Type: BLOOD SPECIMEN Ordering Facility: [facility] Address: [address] [place], [place] [id number] Performed By: #### 1 6570-4, 08496-8, 25143-3, 87323-6, 64363-5, 90119-7, 42429-9, 75484-3 #### [facility] CLIA [id number] [address] [place] [address] [place] HBV surface Ab Ser Qlon 05-0 HBV surface Ab Ql (S) Negative Normal Negative [facility] Comment on above: Order Comment: Speci men Type: BLOOD SPECIMEN Ordering Facility: [facility] Address: [address] [place] [address] Result Comment: No e vidence of current or past infection with Hepatitis B virus. Should recent infection be suspected, repeat testing may be considered 3-4 weeks after this draw. Performed By: #### 1 6570-4, 75402-5, 73625-6, 63169-3, 59854-3, 07304-2, 52254-0, 53004-8 #### [facility] CLIA [id number] [address] [place] [address] [place] HCV Ab Ser Qlon 01-25-2022 HCV Ab Ql (S) Negative Normal Negative [facility] Comment on above: Order Comment: Speci men Type: BLOOD SPECIMEN Ordering Facility: [facility] Address: [address] [place] [address] Result Comment: The result suggests no evidence of active infection with Hepatitis C virus. Should recent infection be suspected, repeat testing may be considered 4-6 weeks after this draw. Performed By: #### 1 6570-4, 47561-6, 09360-0, 68553-7, 82249-5, 01851-6, 51087-2, 99788-3 #### [facility] CLIA [id number] [address] [place] [address] [place] Yuly-1 extractable nuclear Ab Qn (S)on 01-25-2022 YULY 1 ANTIBODY QUAL Negative Normal Negative [facility] Comment on above: Order Comment: Speci men Type: BLOOD SPECIMEN Ordering Facility: [facility] Address: [address] [place] [address] Result Comment: Anti -YULY-1 antibody is used as an aid in diagnosis of polymyositis and dermatomyositis especially with pulmonary involvement. A negative result cannot rule out polymyositis or dermatomyositis. Clinical correlation is required. Test Methodology: Multiplex flow immunoassay. Performed By: #### 1 6570-4, 24444-3, 75942-8, 27071-7, 20397-1, 69346-0, 33743-9, 95434-7 #### [facility] CLIA [id number] [address] [place] [address] [place] Nuclear Ab IA Ql (S)on 01-25 ARMANI BY EIA, QUAL Negative Normal Negative [facility] Comment on above: Order Comment: Jose Carlos oseguera Type: BLOOD SPECIMEN Ordering Facility: [facility] Address: [address] [place] [address] Result Comment: The qualitative antinuclear antibody screen test performed using enzyme immunoassay including the following antigens: dsDNA, histones, SS-A, SS-B, Sm, Sm/BUSINESS DEVELOPMENT DIRECTOR, Scl-70, Yuly-1, and centromeric antigens. Performed By: #### 1 6570-4, 79272-5, 20070-0, 99309-8, 72324-5, 79217-1, 44926-2, 52830-3 #### [facility] CLIA [id number] [address] [place] [address] [place] RHEUMATOID FACTOR BLon 01-25 Rheumatoid factor Qn [IU]/mL <16 IU/mL [facility] Rheumatoid factor Qn [IU]/mL Normal <16 [facility] Comment on above: Order Comment: Jose Carlos oseguera Type: BLOOD SPECIMEN Ordering Facility: [facility] Address: [address] [place] [address] Performed By: #### 1 6570-4, 87365-6, 13376-9, 84384-5, 89673-1, 14462-7, 47706-2, 13128-3 #### [facility] CLIA [id number] [address] [place] [address] [place] Ribonucleoprotein extractabl e nuclear Ab Qn (S)on 01-25-2022 ANTI-BUSINESS DEVELOPMENT DIRECTOR QUAL Negative Normal Negative [facility] Comment on above: Order Comment: Speci men Type: BLOOD SPECIMEN Ordering Facility: [facility] Address: [address] [place] [address] Performed By: #### 1 6570-4, 93904-6, 37493-6, 52699-6, 44141-2, 86736-8, 35499-5, 33967-1 #### [facility] [place] [id number] [address] [place] [address] [place] RIBOSOMAL BUSINESS DEVELOPMENT DIRECTOR QUAL Negative Normal Negative [facility] Comment on above: Order Comment: Speci [facility] Type: BLOOD SPECIMEN Ordering Facility: [facility] Address: [address] [place] [address] Result Comment: Anti -Ribosomal RNA (Ribosomal P) antibody is used as an aid in diagnosis of systemic autoimmune diseases especially systemic lupus erythematosus and mixed connective tissue disease. Cross-reactivity with Anti-cota antibody is not uncommon. Clinical correlation is required. Test Methodology: Multiplex flow immunoassay. Performed By: #### 1 6570-4, 84911-0, 97669-7, 18138-1, 25729-0, 82517-3, 83648-7, 48620-1 #### [facility] [place] [id number] [address] [place] [address] [place] SCL-70 extractable nuclear I gG IA Qn (S)on 01-25-2022 SCLERODERMA AB QUAL Negative Normal Negative [facility] Comment on above: Order Comment: Speci [facility] Type: BLOOD SPECIMEN Ordering Facility: [facility] Address: [address] [place] [address] Performed By: #### 1 6570-4, 52990-0, 44070-3, 60477-7, 64044-9, 82984-4, 34126-4, 69049-2 #### [facility] CLIA [id number] [address] [place] [address] [place] SCLERODERMA IGG AB <0.2 Normal <1.0 [facility] Comment on above: Order Comment: Speci men Type: BLOOD SPECIMEN Ordering Facility: [facility] Address: [address] [place] [address] Result Comment: Scl- 70/Scleroderma antibody test is used as an aid in diagnosis of systemic sclerosis especially the diffuse cutaneous form. A negative result cannot rule out systemic sclerosis. The final interpretation should consider clinical picture and other test results such as anti-centromere antibody. Test Methodology: Multiplex flow immunoassay. Performed By: #### 1 6570-4, 49387-5, 22659-5, 23900-3, 37633-8, 83325-4, 81147-4, 93267-2 #### [facility] CLIA [id number] [address] [place] [address] [place] Sjogrens syndrome-A extracta ble nuclear Ab Qn (S)on 01-25-2022 SSA ANTIBODY QUAL Negative Normal Negative [facility] Comment on above: Order Comment: Speci men Type: BLOOD SPECIMEN Ordering Facility: [facility] Address: [address] [place] [address] Performed By: #### 1 6570-4, 60169-1, 22249-2, 38368-3, 87250-5, 65455-7, 32001-9, 81989-9 #### [facility] CLIA [id number] [address] [place] [address] [place] Sjogrens syndrome-B extracta ble nuclear Ab Qn (S)on 01-25-2022 SSB ANTIBODY QUAL Negative Normal Negative [facility] Comment on above: Order Comment: Speci men Type: BLOOD SPECIMEN Ordering Facility: [facility] Address: [address] [place] [address] Performed By: #### 1 6570-4, 57711-7, 33282-6, 76008-4, 01048-3, 16101-3, 55587-8, 73071-6 #### [facility] CLIA [id number] [address] [place] [address] [place] Cota extractable nuclear Ig G Qn (S)on 01-25-2022 SM ANTIBODY QUAL Negative Normal Negative [facility] Comment on above: Order Comment: Speci men Type: BLOOD SPECIMEN Ordering Facility: [facility] Address: [address] [place] [address] Result Comment: Anti -Sm (Cota) antibody is used as an aid in diagnosis of systemic lupus erythematosus and its presence is associated with renal disease. A negative result cannot rule out systemic lupus erythematosus. Clinical correlation is required. Test Methodology: Multiplex flow immunoassay. Performed By: #### 1 6570-4, 35643-4, 75109-9, 89190-9, 62454-3, 20265-9, 93652-4, 06963-1 #### [facility] CLIA [id number] [address] [place] [address] [place] cCP IgG SerPl-aCncon 022 Cyclic citrullinated peptide IgG Qn <15 Normal <20 [facility] Comment on above: Order Comment: Speci men Type: BLOOD SPECIMEN Ordering Facility: [facility] Address: [address] [place] [phone] Performed By: #### 1 6570-4, 07983-5, 02311-0, 91441-7, 98142-4, 97146-9, 06496-3, 20230-8 #### [facility] CLIA [id number] [address] [place] [address] [place] XR ankle LT min 3V*on 2021 XR ankle LT min 3V* [facility] [employer] Other XR ankle LT min 3V* [facility] [employer] Other XR ankle LT min 3V* [address] [place] [address] [employer] Other XR ankle LT min 3V* HANNY Felton [address] [place] [employer] Other XR ankle LT min 3V* XRay Report Brody [employer] Other XR ankle LT min 3V* Signed [employer] Other XR ankle LT min 3V* Patient: Madyson Schmid MR#: [id number] [place] [employer] Other XR ankle LT min 3V* : 2000 Acct:[id number] [employer] Other XR ankle LT min 3V* Age/Sex: 20 / F ADM Date: 10/10/21 [employer] Other XR ankle LT min 3V* Loc: XDUCLY Room: pe: REG CLI [employer] Other XR ankle LT min 3V* Attending Dr: Christina GONZALEZ [employer] Other XR ankle LT min 3V* Ordering Provider: CARLOS Santos [employer] Other XR ankle LT min 3V* Date of Service: 10/10/21 [employer] Other XR ankle LT min 3V* XR/XR ankle LT min 3V*: Acute left ankle pain [employer] Other XR ankle LT min 3V* Copies to: CARLOS Beckman [employer] Other XR ankle LT min 3V* Left ankle 10/10/2021. [employer] Other XR ankle LT min 3V* CLINICAL DATA: Left ankle pain after twisting injury. [employer] Other XR ankle LT min 3V* FINDINGS: 3 views of the left ankle were obtained. [employer] Other XR ankle LT min 3V* No acute fracture or dislocation is identified. No other bony abnormality is seen. Anterolateral [employer] Other XR ankle LT min 3V* soft tissue swelling is noted. [employer] Other XR ankle LT min 3V* X R/XR ankle LT min 3V* [employer] Other XR ankle LT min 3V* IMPRESSION: Soft tis cody swelling. No acute bony abnormality. [employer] Other XR ankle LT min 3V* Impression dictated by: Erick Cueto Jr., M.D.10/10/2021 4:24 PM [employer] Other XR ankle LT min 3V* Dictation Location: [place] [address] [employer] Other XR ankle LT min 3V* Transcribed By: MIRELLA 10/10/21 [facility] [employer] Other XR ankle LT min 3V* Dictated By: Erick Cueto Jr, MD 10/10/21 [facility] [employer] Other XR ankle LT min 3V* Signed By: [employer] Other XR ankle LT min 3V* 10/10/21 1624 No rt [employer] Other Vital Signs Date Time Vital Sign Value Performing Clinician Facility 07-03-2024 14:41-0400 Body mass index (BMI) [Ratio] 35.65 kg/m2 Flori TOLBERT Work Phone: [facility] [employer] 07-03-2024 14:41-0400 Body weight 97.18 kg Flori TOLBERT Work Phone: [facility] [employer] 07-03-2024 14:41-0400 Diastolic blood pressure 64 mm[Hg] Flori TOLBERT Work Phone: [facility] 07-03-2024 14:41-0400 Systolic blood pressure 116 mm[Hg] Flori TOLBERT Work Phone: [facility] 11-30-2023 09:33-0500 Body height 165.1 cm Jyoti Gallowayur PA-C Work Phone: [facility] 11-30-2023 09:33-0500 Body weight 92.99 kg Jyoti Gallowayur PA-C Work Phone: [facility] 11-30-2023 09:33-0500 Diastolic blood pressure 79 mm[Hg] Jyoti Gallowayur PA-C Work Phone: [facility] 11-30-2023 09:33-0500 Heart rate 84 /min Jyoti Gallowayur PA-C Work Phone: [facility] 11-30-2023 09:33-0500 SaO2% (BldA) [Mass fraction] 96 % Jyoti Gallowayur PA-C Work Phone: [facility] 11-30-2023 09:33-0500 Systolic blood pressure 118 mm[Hg] Jyoti Dickey PA-C Work Phone: [facility] 06-13-2023 12:36-0400 Body height 165.1 cm Ibis Limer Work Phone: [facility] DO Work Phone: 06-13-2023 12:36-0400 Body mass index (BMI) [Ratio] 33.28 kg/m2 Ibis Ellis Myra Work Phone: [facility] 600 DO Work Phone: 06-13-2023 12:36-0400 Body surface area Derived from formula 1.98 m2 Ibis Limer Work Phone: [facility] 600 DO Work Phone: 06-13-2023 12:36-0400 Body weight 90.72 kg Ibis Limer Work Phone: [facility] 600 DO Work Phone: 06-13-2023 12:36-0400 Diastolic blood pressure 80 mm[Hg] Ibis A Myra Work Phone: [facility] 600 DO Work Phone: 06-13-2023 12:36-0400 Heart rate 76 /min Ibis A Myra Work Phone: [facility] 600 DO Work Phone: 06-13-2023 12:36-0400 Systolic blood pressure 116 mm[Hg] Ibis A Myra Work Phone: [facility] 600 DO Work Phone: 06-08-2023 21:50-0400 Diastolic blood pressure 59 mm[Hg] NURSE OB-C Ibis Myra Work Phone: [facility] 06-08-2023 21:50-0400 Heart rate 82 /min NURSE OB-C Ibis Myra Work Phone: [facility] 06-08-2023 21:50-0400 Respiratory rate 18 /min NURSE OB-C Ibis Myra Work Phone: [facility] 06-08-2023 21:50-0400 SaO2% (BldA) [Mass fraction] 99 % NURSE OB-C Ibis Myra Work Phone: [facility] 06-08-2023 21:50-0400 Systolic blood pressure 115 mm[Hg] NURSE OB-C Ibis Myra Work Phone: [facility] 06-08-2023 16:35-0400 Body height 165.1 cm NURSE OB-C Ibis Myra Work Phone: [facility] 06-08-2023 16:35-0400 Body temperature 97.8 [degF] NURSE OB-C Ibis Myra Work Phone: [facility] 06-08-2023 16:35-0400 Body weight 91.6 kg NURSE OB-C Ibis Myra Work Phone: [facility] 12-28-2022 15:00-0400 Body weight 89.36 kg Irvin Hanna MD Work Phone: [facility] 12-28-2022 15:00-0400 Diastolic blood pressure 86 mm[Hg] Irvin Hanna MD Work Phone: [facility] 12-28-2022 15:00-0400 Heart rate 79 /min Irvin Hanna MD Work Phone: [facility] 12-28-2022 15:00-0400 Respiratory rate 16 /min Irvin Hanna MD Work Phone: [facility] 12-28-2022 15:00-0400 Systolic blood pressure 119 mm[Hg] Irvin Hanna MD Work Phone: [facility] 10-13-2022 09:35-0500 Body height 165.1 cm Ibis A Myra Work Phone: [facility] 320 DO Work Phone: 10-13-2022 09:35-0500 Body mass index (BMI) [Ratio] 33.45 kg/m2 Ibis A Myra Work Phone: [facility] 320 DO Work Phone: 10-13-2022 09:35-0500 Body surface area Derived from formula 1.98 m2 Ibis A Myra Work Phone: [facility] 320 DO Work Phone: 10-13-2022 09:35-0500 Body weight 91.17 kg Ibis A Myra Work Phone: [facility] 320 DO Work Phone: 10-13-2022 09:35-0500 Diastolic blood pressure 70 mm[Hg] Ibis A Myra Work Phone: [facility] 320 DO Work Phone: 10-13-2022 09:35-0500 Heart rate 76 /min Ibis A Myra Work Phone: [facility] 320 DO Work Phone: 10-13-2022 09:35-0500 Systolic blood pressure 102 mm[Hg] Ibis A Myra Work Phone: [facility] 320 DO Work Phone: 09-11-2022 09:58-0500 Diastolic blood pressure 82 mm[Hg] Ibis A Myra Work Phone: [facility] 250 DO Work Phone: 09-11-2022 09:58-0500 Diastolic blood pressure 80 mm[Hg] Ibis A Myra Work Phone: [facility] 250 DO Work Phone: 09-11-2022 09:58-0500 Systolic blood pressure 112 mm[Hg] Ibis A Myra Work Phone: [facility] 250 DO Work Phone: 09-11-2022 09:58-0500 Systolic blood pressure 108 mm[Hg] Ibis A Myra Work Phone: [facility] 250 DO Work Phone: 09-11-2022 08:57-0500 Body height 165.1 cm Ibis A Myra Work Phone: [facility] 250 DO Work Phone: 09-11-2022 08:57-0500 Body mass index (BMI) [Ratio] 32.95 kg/m2 Ibis A Myra Work Phone: [facility] 250 DO Work Phone: 09-11-2022 08:57-0500 Body surface area Derived from formula 1.97 m2 Ibis A Myra Work Phone: [facility] 250 DO Work Phone: 09-11-2022 08:57-0500 Body weight 89.81 kg Ibis A Myra Work Phone: [facility] 250 DO Work Phone: 09-11-2022 08:57-0500 Diastolic blood pressure 68 mm[Hg] Ibis A Myra Work Phone: [facility] 250 DO Work Phone: 09-11-2022 08:57-0500 Heart rate 74 /min Ibis A Ymra Work Phone: [facility] 250 DO Work Phone: 09-11-2022 08:57-0500 Systolic blood pressure 102 mm[Hg] Ibis A Myra Work Phone: [facility] 250 DO Work Phone: 07-31-2022 10:14-0500 Body weight 89.81 kg Irvin Hanna MD Work Phone: [facility] 07-31-2022 10:14-0500 Diastolic blood pressure 71 mm[Hg] Irvin Hanna MD Work Phone: [facility] 07-31-2022 10:14-0500 Heart rate 92 /min Irvin Hanna MD Work Phone: [facility] 07-31-2022 10:14-0500 Systolic blood pressure 109 mm[Hg] Irvin Hanna MD Work Phone: [facility] 07-21-2022 07:27-0400 Body height 165.1 cm Ibis A Myra Work Phone: [facility] 320 DO Work Phone: 07-21-2022 07:27-0400 Body mass index (BMI) [Ratio] 33.45 kg/m2 Ibis A Myra Work Phone: [facility] 320 DO Work Phone: 07-21-2022 07:27-0400 Body surface area Derived from formula 1.98 m2 Ibis A Myra Work Phone: [facility] 320 DO Work Phone: 07-21-2022 07:27-0400 Body weight 91.17 kg Ibis A Myra Work Phone: [facility] 320 DO Work Phone: 07-21-2022 07:27-0400 Diastolic blood pressure 72 mm[Hg] Ibis A Myra Work Phone: [facility] 320 DO Work Phone: 07-21-2022 07:27-0400 Heart rate 64 /min Ibis A Myra Work Phone: [facility] 320 DO Work Phone: 07-21-2022 07:27-0400 Systolic blood pressure 106 mm[Hg] Ibis A Myra Work Phone: [facility] 320 DO Work Phone: 07-10-2022 10:45-0400 Body height 165.1 cm Ibis A Myra Work Phone: [facility] 250 DO Work Phone: 07-10-2022 10:45-0400 Body mass index (BMI) [Ratio] 32.95 kg/m2 Ibis A Myra Work Phone: [facility] 250 DO Work Phone: 07-10-2022 10:45-0400 Body surface area Derived from formula 1.97 m2 Ibis A Myra Work Phone: [facility] 250 DO Work Phone: 07-10-2022 10:45-0400 Body weight 89.81 kg Ibis A Myra Work Phone: [facility] DO Work Phone: 07-10-2022 10:45-0400 Diastolic blood pressure 70 mm[Hg] Ibis A Myra Work Phone: [facility] 250 DO Work Phone: 07-10-2022 10:45-0400 Heart rate 76 /min Ibis A Myra Work Phone: [facility] 250 DO Work Phone: 07-10-2022 10:45-0400 Systolic blood pressure 104 mm[Hg] Ibis A Myra Work Phone: [facility] 250 DO Work Phone: 06-01-2022 11:36-0400 Body height 165.1 cm NURSE OB-C Ibis Myra Work Phone: [facility] 06-01-2022 11:36-0400 Body temperature 100 [degF] NURSE OB-C Ibis Myra Work Phone: [facility] 06-01-2022 11:36-0400 Body weight 88.4 kg NURSE OB-C Ibis Myra Work Phone: [facility] 06-01-2022 11:36-0400 Diastolic blood pressure 68 mm[Hg] NURSE OB-C Ibis Myra Work Phone: [facility] 06-01-2022 11:36-0400 Heart rate 99 /min NURSE OB-C Ibis Myra Work Phone: [facility] 06-01-2022 11:36-0400 Respiratory rate 18 /min NURSE OB-C Ibis Myra Work Phone: [facility] 06-01-2022 11:36-0400 SaO2% (BldA) [Mass fraction] 97 % NURSE OB-C Ibis Myra Work Phone: [facility] 06-01-2022 11:36-0400 Systolic blood pressure 121 mm[Hg] NURSE OB-C Ibis Myra Work Phone: [facility] 05-18-2022 09:42-0400 Body height 165.1 cm Ibis A Myra Work Phone: [facility] 250 DO Work Phone: 05-18-2022 09:42-0400 Body mass index (BMI) [Ratio] 31.95 kg/m2 Ibis A Myra Work Phone: [facility] 250 DO Work Phone: 05-18-2022 09:42-0400 Body surface area Derived from formula 1.94 m2 Ibis A Myra Work Phone: [facility] 250 DO Work Phone: 05-18-2022 09:42-0400 Body weight 87.09 kg Ibis A Myra Work Phone: [facility] 250 DO Work Phone: 05-18-2022 09:42-0400 Diastolic blood pressure 74 mm[Hg] Ibis A Myra Work Phone: [facility] 250 DO Work Phone: 05-18-2022 09:42-0400 Heart rate 72 /min Ibis A Myra Work Phone: [facility] 250 DO Work Phone: 05-18-2022 09:42-0400 Systolic blood pressure 102 mm[Hg] Ibis A Myra Work Phone: [facility] 250 DO Work Phone: 03-23-2022 09:11-0400 Diastolic blood pressure 80 mm[Hg] Ibis A Myra Work Phone: [facility] 250 DO Work Phone: 03-23-2022 09:11-0400 Systolic blood pressure 110 mm[Hg] Ibis A Myra Work Phone: [facility] 250 DO Work Phone: 03-23-2022 09:06-0400 Body height 166.37 cm Ibis A Myra Work Phone: [facility] 250 DO Work Phone: 03-23-2022 09:06-0400 Body mass index (BMI) [Ratio] 31.3 kg/m2 Ibis A Myra Work Phone: [facility] 250 DO Work Phone: 03-23-2022 09:06-0400 Body surface area Derived from formula 1.95 m2 Ibis A Myra Work Phone: [facility] 250 DO Work Phone: 03-23-2022 09:06-0400 Body weight 86.64 kg Ibis A Myra Work Phone: [facility] 250 DO Work Phone: 03-23-2022 09:06-0400 Diastolic blood pressure 76 mm[Hg] Ibis A Myra Work Phone: [facility] 250 DO Work Phone: 03-23-2022 09:06-0400 Heart rate 66 /min Ibis A Myra Work Phone: [facility] 250 DO Work Phone: 03-23-2022 09:06-0400 Systolic blood pressure 118 mm[Hg] Ibis Renteria Work Phone: [facility] 250 DO Work Phone: 01-25-2022 08:16-0400 Body height 165.1 cm Irvin Hanna MD Work Phone: [facility] 01-25-2022 08:16-0400 Body weight 86.36 kg Irvin Hanna MD Work Phone: [facility] 01-25-2022 08:16-0400 Diastolic blood pressure 83 mm[Hg] Irvin Hanna MD Work Phone: [facility] 01-25-2022 08:16-0400 Heart rate 71 /min Irvin Hanna MD Work Phone: [facility] 01-25-2022 08:16-0400 Systolic blood pressure 116 mm[Hg] Irvin Hanna MD Work Phone: [facility] 01-10-2022 12:45-0400 Body height 165.1 cm Ok Mckeon Other [facility] [employer] Other 01-10-2022 12:45-0400 Body mass index (BMI) [Ratio] 31.61 kg/m2 Ok Mckeon Other [facility] [employer] Other 01-10-2022 12:45-0400 Body temperature 97.8 [degF] Ok Mckeon Other [employer] Other 01-10-2022 12:45-0400 Body weight 86.18 kg Ok Mckeon Other [employer] Other 01-10-2022 12:45-0400 Diastolic blood pressure 80 mm[Hg] Ok Mckeon Other [employer] Other 01-10-2022 12:45-0400 SaO2% (BldA) [Mass fraction] 96 % Ok Mckeon Other [employer] Other 01-10-2022 12:45-0400 Systolic blood pressure 120 mm[Hg] Ok Mckeon Other [employer] Other 10-10-2021 15:50-0500 Body height 165.1 cm Christina Lambmond Other [employer] Other 10-10-2021 15:50-0500 Body mass index (BMI) [Ratio] 31.61 kg/m2 Christina Lambmond Other [employer] Other 10-10-2021 15:50-0500 Body temperature 97 [degF] Christina Portia Other [employer] Other 10-10-2021 15:50-0500 Body weight 86.18 kg Christina Portia Other [employer] Other 10-10-2021 15:50-0500 Diastolic blood pressure 76 mm[Hg] Christina Portia Other [employer] Other 10-10-2021 15:50-0500 Respiratory rate 18 /min Christina Portia Other [employer] Other 10-10-2021 15:50-0500 SaO2% (BldA) [Mass fraction] 99 % Christina Portia Other [employer] Other 10-10-2021 15:50-0500 Systolic blood pressure 123 mm[Hg] Christina Pearce Other [employer] Other Encounters Encounter Date Encounter Type Care Provider Facility Start: 08-06-2024 End: 08-06-2024 ambulatory Jyoti TOLBERT-C Work Phone: Neurology Comment on above: Need to talk Start: 08-05-2024 End: 08-05-2024 ambulatory FLORI GIL Not Available Start: 07-24-2024 End: 07-24-2024 ambulatory Celeste Watson Facility:[facility] Start: 07-07-2024 End: 07-07-2024 Chart abstracting Hammad Hatch MD Work Phone: M[facility]- Medicine at [facility] Start: 07-03-2024 End: 07-03-2024 flow sheet [...] Start: 07-02-2024 End: 07-02-2024 ambulatory JOIE SEAMAN Facility:[facility] Comment on above: POTS (postural ortho static tachycardia syndrome) (Primary Dx); Near syncope Start: 07-02-2024 End: 07-02-2024 Telemedicine consultation with patient Joie Seaman 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 Start: 03-25-2024 Patient encounter status Flori Gil TOMASZ Work Phone: [facility] Start: 03-25-2024 End: 03-25-2024 ambulatory JB Charlton NAZIA Not Available Start: 03-20-2024 End: 03-20-2024 ambulatory Jyoti Dickey PA-C Work Phone: Neurology Comment on above: POTS (postural ortho static tachycardia syndrome) (Primary Dx) Start: 03-20-2024 End: 03-20-2024 Telemedicine consultation with patient Jyoti Noble TOLBERT-Akila Work Phone: Neurology Start: 03-14-2024 End: 03-14-2024 ambulatory Celeste Shirley Facility:[facility] Start: 03-14-2024 End: 03-14-2024 Patient encounter procedure Celeste Watson [facility] Start: 02-26-2024 End: 02-26-2024 ambulatory RUGEN Latesha NAZIA Not Available Start: 01-22-2024 ambulatory SPORTS PHYSICIAN Krista L Mae Facil ity: [facility] Start: 01-01-2024 End: 01-01-2024 ambulatory CELESTE WATSON Not Available Start: 12-21-2023 End: 12-21-2023 ambulatory CELESTE WATSON Not Available Start: 12-11-2023 End: 12-11-2023 ambulatory SPORTS PHYSICIAN Krista L Mae Facility: [facility] Start: 12-11-2023 End: 12-11-2023 ambulatory CELESTE WATSON Not Available Start: 11-30-2023 End: 11-30-2023 ambulatory JYOTI DICKEY Facility:[facility] Start: 11-30-2023 End: 11-30-2023 Patient encounter procedure Jyoti Dickey PA-C Work Phone: Neurology Comment on above: POTS (postural ortho static tachycardia syndrome) (Primary Dx) Start: 11-12-2023 End: 11-12-2023 Patient encounter procedure Autonomic 2 Neur Main [facility] Start: 11-12-2023 End: 11-12-2023 ambulatory AURORA SANTIAGO Neurology Comment on above: Procedure Start: 10-10-2023 End: 10-10-2023 ambulatory AURORA SANTIAGO Facility:[facility] Start: 07-24-2023 End: 07-24-2023 ambulatory Jocelin FELIX Facility:[facility] Start: 07-20-2023 Telephone encounter Arin Tinajero RN [facility] Comment on above: Referral Follow-up Start: 07-10-2023 End: 07-10-2023 ambulatory JOSE ARMANDO GREY Facility:[facility] Start: 07-10-2023 End: 07-10-2023 Office outpatient new 30 minutes Jose Armando Grey DO Work Phone: [facility] [place] Comment on above: Chronic pain of righ t knee (Primary Dx); Tendinopathy of gluteal region Start: 07-06-2023 Orders Only Jose Armando Grey DO Work Phone: Orthopaedics Comment on above: Right knee pain, uns pecified chronicity (Primary Dx) Start: 07-05-2023 End: 07-05-2023 ambulatory NURSE OB-C Ibis Renteria Work Phone: [facility] Work Phone: Start: 07-05-2023 End: 07-05-2023 Patient encounter procedure NURSE OB-C Ibis Renteria Work Phone: [facility]-Flu Vaccine Start: 06-13-2023 Office outpatient vi sit 15 minutes Ibis Renteria Work Phone: -[facility] 600 DO Work Phone: Start: 06-13-2023 ambulatory Tabatha Cota Facility:1 [id number] Start: 06-08-2023 End: 06-08-2023 Emergency department patient visit NURSE OB-C Ibis Myra Work Phone: [facility] Work Phone: Start: 04-25-2023 End: 04-25-2023 ambulatory NURSE OB-C Ibis Winter Myra Work Phone: [facility] Work Phone: Start: 04-25-2023 End: 04-25-2023 Departed Referred NURSE OB-C Ibis Arenasncer Work Phone: [facility] [address] Work Phone: Start: 03-14-2023 ambulatory [facility]AN [facility] Start: 01-18-2023 End: 01-18-2023 ambulatory NURSE OB-C Ibis Winter Myra Work Phone: [facility] Work Phone: Start: 01-18-2023 End: 01-18-2023 Departed Referred NURSE OB-C Ibis Myra Work Phone: [facility] [address] Work Phone: Start: 12-28-2022 End: 12-28-2022 Patient encounter procedure Irvin Hanna MD Work Phone: Rheumatology Comment on above: Pain and swelling of knee, right (Primary Dx); Joint stiffness Start: 10-31-2022 Chart Update Ibis Ely cer Work Phone: [facility] 250 DO Work Phone: Start: 10-16-[address] Melodie Alfonso ty:[id number] Start: 10-13-2022 Current tobacco non-user cad cap copd pv dm Ibis Limer Work Phone: [facility] 320 DO Work Phone: Start: 10-13-[address] Annalee Pierre acility: Start: 09-11-2022 Office outpatient vi sit 15 minutes Ibis A Myra Work Phone: [facility] 250 DO Work Phone: Start: 09-11-2022 Patient encounter procedure Ibis Renteria Work Phone: [facility] 250 DO Work Phone: Start: 09-11-[address] Melodie Alfonso ty: Start: 09-07-2022 Telephone encounter Ibis Limer Work Phone: [facility] 320 DO Work Phone: Start: 08-27-[address] Annalee Pierre acility: Start: 08-01-2022 AUDIT Ibis Arenasn cer Work Phone: [facility] 320 DO Work Phone: Start: 07-31-2022 EVENT EZEKIEL, Provider : HERIBERTO SERRANO DAIRY SCIENTIST 1,[id number], Status: Pen, Time: 11:00 AM [facility]imer [facility] Work Phone: Start: 07-31-[address] Annalee Pierre acility: Start: 07-31-2022 End: 07-31-2022 Patient encounter procedure Irvin Hanna MD Work Phone: Rheumatology Comment on above: Pain and swelling of knee, right (Primary Dx); Joint stiffness; Inflammatory arthritis Start: 07-26-2022 ambulatory IBIS Sanchez y:[facility] Start: 07-21-2022 Current tobacco non-user cad cap copd pv dm Ibis A Myra Work Phone: [facility] 320 DO Work Phone: Start: 07-21-[address] Annalee Maza F acility: Start: 07-10-2022 Office outpatient vi sit 25 minutes Ibis A Myra Work Phone: [facility] 250 DO Work Phone: Start: 07-10-2022 Patient encounter procedure Ibis A Myra Work Phone: [facility] 250 DO Work Phone: Start: 07-10-[address] Melodie Alcaraz [facility] ty: Start: 06-15-2022 Telephone encounter Ibis A Myra Work Phone: [facility] 250 DO Work Phone: Start: 06-12-2022 End: 06-12-[address] Annalee Maza Facility:[id number] Start: 06-05-2022 Patient encounter procedure Ibis A Myra Work Phone: [id number] [place] [facility] Work Phone: Start: 06-01-2022 End: 06-01-2022 Emergency department patient visit NURSE OB-C Ibis Myra Work Phone: [facility] Start: 05-18-2022 Office outpatient vi sit 25 minutes Ibis A Myra Work Phone: [facility] 250 DO Work Phone: Start: 05-18-2022 Patient encounter procedure Ibis A Myra Work Phone: [facility] 250 DO Work Phone: Start: 05-08-2022 End: 05-08-2022 Patient encounter procedure NURSE OB-C Ibis Myra Work Phone: [facility] Start: 05-03-2022 Result Review Ibis Rhonda Arenasn cer Work Phone: [facility] 250 DO Work Phone: Start: 05-03-2022 SURGNONUH, Provider: María Elena Freire, Status: Pen, Time: 10:00 AM Ibis A Myra Work Phone: [facility] 250 DO Work Phone: Start: 05-03-2022 End: 05-03-2022 Patient encounter procedure NURSE OB-C Ibis Myra Work Phone: [facility] Start: 03-28-2022 EVENT EZEKIEL, Provider : HERIBERTO SINGH DAIRY SCIENTIST 1,[id number], Status: Pen, Time: 8:00 AM Ibis Rhonda Myra Work Phone: [facility] 250 DO Work Phone: Start: 03-28-2022 Patient encounter procedure Ibis A Myra Work Phone: [facility] 250 DO Work Phone: Start: 03-26-2022 Chart Update Ibis Ellis Spen cer Work Phone: [facility] 250 DO Work Phone: Start: 03-24-2022 End: 03-24-2022 Patient encounter procedure NURSE OB-C Ibis Myra [facility] Start: 03-23-2022 Office consultation new/estab patient 60 min Ibis A Myra Work Phone: [facility] 250 DO Work Phone: Start: 03-23-2022 Office outpatient ne w 45 minutes Ibis A Myra Work Phone: [facility] Work Phone: Start: 02-02-2022 Telephone encounter Irvin shannon MD Work Phone: Rheumatology Comment on above: Orders Start: 01-25-2022 End: 01-25-2022 Patient encounter procedure Irvin Hanna MD Work Phone: Rheumatology Comment on above: Pain and swelling of knee, right (Primary Dx); Joint stiffness Start: 01-10-2022 End: 01-10-2022 ambulatory Ok Mckeon Other [facility] Other Start: 01-10-2022 Office outpatient ne w 45 minutes Ok Mckeon [facility] Vascular Surgery Start: 10-10-2021 End: 10-10-2021 ambulatory Christina Pearce Other [facility] Other Start: 10-10-2021 Office outpatient vi sit 15 minutes Christina Pearce [facility] [place] Procedures Date Procedure Procedure Detail Performing Clinician Start: 07-03-2024 Urnls dip stick/tabl et rgnt non-auto w/o micrscp Flori TOLBERT Work Phone: Start: 05-24-2024 Blood count complete automated Not In System Ref Prov Start: 07-10-2023 [facility] Pr ovider Historical Start: 06-08-2023 Plain chest X-ray NURSE OB-C Ibis Myra Work Phone: Start: 01-18-2023 Plain chest X-ray NURSE OB-C Ibis Myra Work Phone: Start: 05-03-2022 Plain chest X-ray NURSE OB-C Ibis Myra Work Phone: Start: 08-05-2021 Arthroscopy of knee Lorna hlverenice Watson Arthroscopy of knee Ibis A Myra Work Phone: Cryotherapy of warts Rajeev Watson Extraction of wisdom tooth Ibis A Myra Work Phone: SARS-CoV-2, Influenz a & RSV (PCR) NURSE OB-C Ibis Renteria Work Phone: Tonsillectomy and adenoidectomy Ibis Renteria Work Phone: Tonsillectomy and adenoidectomy Celeste Watson NEGATED: Highlighted row has not occurred! Total colonoscopy Ibis Renteria Work Phone: Plan of Treatment Date Care Activity Detail Author Start: 03-25-2034 DTaP,Tdap and Td Vac cines (8 - Td or Tdap) DTaP,Tdap and Td Vaccines (8 - Td or Tdap) [facility] Start: 03-25-2034 Urine microalbumin profile DTaP,Tdap,Td Vaccine (8 - Td or Tdap) [facility] Start: 09-02-2024 End: 09-02-2024 ambulatory 09/02/2024 12:15 PM EST [facility] [address] [place] [address] Jyoti Dickey PA-C [address] [place] [address] F/u Neurology Comment on above: F/u Start: 09-02-2024 End: 09-02-2024 ambulatory 09/02/2024 10:45 AM EST [facility] [address] [place] [address] Jyoti Dickey PA-C [address] [place] [address] F/u Neurology Comment on above: F/u Start: 08-13-2024 End: 08-13-2024 Patient encounter procedure [facility] Start: 08-05-2024 End: 08-05-2024 Patient encounter procedure 08/05/2024 8:50 AM EST Routine [facility] [address] [place] [address] [place] [id number] Osei Malik DO [address] [facility] [address] [place] [address] [facility] Start: 07-03-2024 End: 07-03-2024 Patient encounter procedure 07/03/2024 2:30 PM EDT Routine [facility] [address] [place] [id number] Flori Gil PA [address] [place], [place] [id number] Arrived [facility] Comment on above: Arrived Start: 05-25-2024 Covid-19 Vaccine ( season) Covid-19 Vaccine ( season) [facility] Start: 05-25-2024 Covid-19 Vaccine () Covid-19 Vaccine ( season) [facility] Start: 05-25-2024 Influenza vaccination [facility] Start: 04-20-2024 Urine microalbumin profile DTaP,Tdap,Td Vaccine (7 - Td or Tdap) [facility] Start: 09-24-2023 Depression Assessment Depression Ass essment [facility] Start: 05-25-2023 Covid-19 Vaccine ( season) Covid-19 Vaccine () [facility] Start: 05-25-2023 Influenza vaccination C [facility] Start: 04-25-2023 [facility] Start: 04-06-2023 FUV, Provider: Annalee Maza, Status: Pen, Time: 2:40 PM FUV, Provider: Annalee Maza, Status: Nahid, Time: 2:40 PM [place] [address] DO Work Phone: Start: 2022 PAP TESTING PAP TESTING [facility] Start: 2022 Screening for malign ant neoplasm of cervix [facility] Start: 10-13-2022 FUV, Provider: Annalee Maza, Status: Pen, Time: 9:20 AM FUV, Provider: Annalee Maza, Status: Pen, Time: 9:20 AM -[facility] 320 DO Work Phone: Start: 09-24-2022 DEPRESSION ASSESSMENT DEPRESSION [facility] Start: 09-11-2022 FUV, Provider: Melodie Alcaraz, Status: Pen, Time: 9:30 AM FUV, Provider: Melodie Alcaraz, Status: Pen, Time: 9:30 AM -[facility] 250 DO Work Phone: Start: 09-11-2022 EVENT EZEKIEL, Provider : HERIBERTO SINGH DAIRY SCIENTIST [id number], Status: Pen, Time: 8:30 AM EVENT EZEKIEL, Provider: HERIBERTO SINGH DAIRY SCIENTIST 1,[id number], Status: Pen, Time: 8:30 AM -[facility] 320 DO Work Phone: Start: 08-14-2022 EVENT EZEKIEL, Provider : MONICA [id number] DAIRY SCIENTIST 1,[id number], Status: Pen, Time: 10:00 AM EVENT EZEKIEL, Provider: MONICA [id number] DAIRY SCIENTIST 1,[id number], Status: Pen, Time: 10:00 AM -[facility] 250 DO Work Phone: Start: 07-21-2022 NPVRFRL, Provider: Annalee Maza, Status: Pen, Time: 7:20 AM NPVRFRL, Provider: Annalee Maza, Status: Pen, Time: 7:20 AM -[facility] 250 DO Work Phone: Start: 07-10-2022 FUV, Provider: Melodie Alcaraz, Status: Pen, Time: 10:45 AM FUV, Provider: Melodie Alcaraz, Status: Pen, Time: 10:45 AM [facility] 250 DO Work Phone: Start: 06-05-2022 [facility], Provider: Annalee Maza, Status: Pen, Time: 10:00 AM [facility], Provider: Annalee Maza, Status: Pen, Time: 10:00 AM -[facility] 250 DO Work Phone: Start: 05-25-2022 Influenza vaccination C [facility] Start: 05-18-2022 FUV, Provider: Melodie Alcaraz, Status: Pen, Time: 9:15 AM FUV, Provider: Melodie Alcaraz, Status: Pen, Time: 9:15 AM -[facility] 250 DO Work Phone: Start: 05-08-2022 End: 05-08-2022 Patient encounter procedure [facility] Start: 05-03-2022 SURGNON, Provider: María Elena Freire, Status: Pen, Time: 10:00 AM SURGNON, Provider: María Elena Freire, Status: Pen, Time: 10:00 AM -[facility] 250 DO Work Phone: Start: 03-28-2022 EVENT EZEKIEL, Provider : HERIBERTO SINGH DAIRY SCIENTIST 1,[id number], Status: Pen, Time: 8:00 AM EVENT EZEKIEL, Provider: HERIBERTO SINGH DAIRY SCIENTIST 1,[id number], Status: Pen, Time: 8:00 AM -[facility] 250 DO Work Phone: Start: 01-25-2022 End: 03-27-2022 Chronic hepatitis differentiation between hepatitis B and C virus panel - Serum or Plasma [facility] Work Phone: Comment on above: Expected: 01/25/2022 , Expires: 03/27/2022 Start: 01-25-2022 End: 03-27-2022 Complement C1 esterase inhibitor [Mass/volume] in Serum or Plasma [facility] Work Phone: Comment on above: Expected: 01/25/2022 , Expires: 03/27/2022 Start: 01-25-2022 End: 03-27-2022 Complement C2 [Mass/volume] in Serum or Plasma [facility] Work Phone: Comment on above: Expected: 01/25/2022 , Expires: 03/27/2022 Start: 09-24-2021 DEPRESSION ASSESSMENT DEPRESSION ASS ESSMENT [facility] Start: 06-16-2021 COVID-19 VACCINE (3 - Booster for Pfizer series) COVID-19 VACCINE (3 - Booster for Pfizer series) [facility] Start: 03-11-2021 COVID-19 VACCINE (3 - Booster for Pfizer series) COVID-19 VACCINE (3 - Booster for Pfizer series) [facility] Start: 02-11-2021 COVID-19 VACCINE (3 - Pfizer risk series) COVID-19 VACCINE (3 - Pfizer risk series) [facility] Start: 2020 SHINGRIX VACCINE (1 of 2) VANG GRIX VACCINE (1 of 2) [facility] Start: 2020 Urine microalbumin profile [facility] Start: 12-03-2019 Adult BMI Screening Adult BMI Screen [facility] Start: 12-03-2019 Anxiety Screening Anxiety Screening [facility] Start: 12-03-2019 CHLAMYDIA SCREENING (18-24) CHLAMYDIA SCREENING (18-24) [facility] Start: 12-03-2019 Depression Screening Depression Scre ening [facility] Start: 12-03-2019 GC (GONORRHEA) SCREE NINI (18-24) GC (GONORRHEA) SCREENING (18-24) [facility] Start: 12-03-2019 HEPATITIS C SCREENING HEPATITIS C SC REENING [facility] Start: 12-03-2019 HIV SCREENING HIV SCREENING [facility] Start: 12-03-2019 HIV screening HIV Screening [facility] Start: 12-03-2019 Screening for Chlamy taylor trachomatis Chlamydia Screening (18-24) [facility] Start: 2017 Meningococcal B Vacc ine: Consider Based On Risk (1 of 2 - Patient Seeks Protection) Meningococcal B Vaccine: Consider Based On Risk (1 of 2 - Patient Seeks Protection) [facility] Start: 12-03-2015 PEDS TO ADULT TRANSI TION ANNUAL ASSESSMENT PEDS TO ADULT TRANSITION ANNUAL ASSESSMENT [facility] Start: 2013 Adult depression screening assessment DEPRESSION SCREENING [facility] Start: 2013 PEDS TO ADULT TRANSI TION INITIAL DISCUSSION PEDS TO ADULT TRANSITION INITIAL DISCUSSION [facility] Start: 2013 Tobacco Screening Tobacco Screening [facility] Start: 2012 HPV VACCINE (1 - 2-d ose series) HPV VACCINE (1 - 2-dose series) [facility] Start: 12-03-2011 MENINGOCOCCAL B: Con ed transporter based on risk (1 of 2 - Risk Bexsero 2-dose series) MENINGOCOCCAL B: Consider based on risk (1 of 2 - Risk Bexsero 2-dose series) [facility] Start: 2010 HPV Vaccine (1 - 2-d ose series) HPV Vaccine (1 - 2-dose series) [facility] Start: 2010 HPV VACCINES (1 - 2- dose series) HPV VACCINES (1 - 2-dose series) [facility] Start: 2008 DTaP/Tdap/Td VACCINE S (1 - Tdap) DTaP/Tdap/Td VACCINES (1 - Tdap) [facility] Start: 12-03-2007 PNEUMOCOCCAL (1 - PCV) PNEUMOCOCCAL (1 - PCV) [facility] Start: 2002 MMR VACCINES (1 of 1 - Standard series) MMR VACCINES (1 of 1 - Standard series) [facility] Start: 2002 VARICELLA VACCINES ( 1 of 2 - 2-dose childhood series) VARICELLA VACCINES (1 of 2 - 2-dose childhood series) [facility] Start: 06-04-2002 COVID-19 Vaccine (#1) COVID-19 Vacci ne (#1) [facility] Start: 2001 HEPATITIS B (1 of 3 - 3-dose series) HEPATITIS B (1 of 3 - 3-dose series) [facility] Start: 2001 Hepatitis B Vaccine (1 of 3 - 3-dose series) Hepatitis B Vaccine (1 of 3 - 3-dose series) [facility] Start: 2001 HEPATITIS B VACCINES (1 of 3 - 3-dose series) HEPATITIS B VACCINES (1 of 3 - 3-dose series) [facility] Patient Education [facility] Work Phone: Patient referral [facility] Work Phone: End: 08-04-2024 XR KNEE GENERAL 4V AP BOTH/PA BOTH/LAT/MERC RIGHT XR KNEE GENERAL 4V AP BOTH/PA BOTH/LAT/MERC RIGHT Radiology Routine Right knee pain, unspecified chronicity 1 Occurrences starting 07/06/2023 until 08/04/2024 [facility] Work Phone: Comment on above: 1 Occurrences starti ng 07/06/2023 until 08/04/2024 [facility] Immunizations Immunization Date Immunization Notes Care Provider [facility] 03-25-2024 tetanus toxoid, redu richar diphtheria toxoid, and acellular pertussis vaccine, adsorbed Flori TOLBERT Work Phone: [facility] 07-05-2023 influenza virus vaccine, unspecified formulation Celeste Watson [facility] 07-05-2023 influenza, injectabl e, quadrivalent, preservative free Flori TOLBERT Work Phone: [facility] 01-14-2021 Pfizer-BioNTech COVID-19 Vacc 30 MCG/0.3ML Intramuscular Suspension Ibis A Myra Work Phone: [facility] Comment on above: Result Comment: 2023: TPVAL 12-24-2020 Pfizer-BioNTech COVID-19 Vacc 30 MCG/0.3ML Intramuscular Suspension Ibis A Myra Work Phone: [facility] Comment on above: Result Comment: 2023: TPVAL 12-11-2017 meningococcal polysaccharide (groups A, C, Y and W-135) diphtheria toxoid conjugate vaccine (MCV4P) Christina Pearce Other [facility] Other 12-11-2017 meningococcal ACWY vaccine, unspecified formulation Celeste Watson [facility] 11-06-2014 human papilloma viru s vaccine, quadrivalent Christina Portia Other [employer] [employer] Other 11-06-2014 HPV, unspecified formulation Ibis Rhonda ArenasMyra [facility] Work Phone: 06-26-2014 HPV, unspecified formulation Celeste Watson [facility] 06-26-2014 human papilloma viru s vaccine, quadrivalent Christina Portia Other [place] [employer] Other 04-20-2014 human papilloma viru s vaccine, quadrivalent Christina Portia Other [place] [employer] Other 04-20-2014 meningococcal polysaccharide (groups A, C, Y and W-135) diphtheria toxoid conjugate vaccine (MCV4P) Christina Portia Other [place] [employer] Other 04-20-2014 tetanus toxoid, redu richar diphtheria toxoid, and acellular pertussis vaccine, adsorbed Christina Portia Other [facility] 04-20-2014 HPV, unspecified formulation Celesteverenice Watson [facility] 04-20-2014 meningococcal ACWY vaccine, unspecified formulation Celeste Rinradha [facility] 12-27-2006 diphtheria, tetanus toxoids and acellular pertussis vaccine, unspecified formulation Ibis Rhonda ArenasMyra Work Phone: [facility] [employer] 250 DO Work Phone: 12-27-2006 DTaP, unspecified formulation Celeste Rinradha [facility] 12-27-2006 measles, mumps, rubella, and varicella virus vaccine Ibis A Myra Work Phone: [facility] 12-27-2006 poliovirus vaccine, inactivated Ibis A Myra Work Phone: [facility] 250 DO Work Phone: 12-27-2006 poliovirus vaccine, unspecified formulation Celeste RinBeryllium [facility] 02-06-2003 diphtheria, tetanus toxoids and acellular pertussis vaccine, unspecified formulation Ibis A Myra Work Phone: [facility] [employer] DO Work Phone: 02-06-2003 DTaP, unspecified formulation Celeste RinBeryllium [facility] 02-06-2003 haemophilus influenz ae type b vaccine, conjugate unspecified formulation Ibis A Myra Work Phone: [employer] [facility] DO Work Phone: 02-06-2003 Hib, unspecified formulation Celeste RinBeryllium [facility] 02-06-2003 measles, mumps and rubella virus vaccine Ibis A Myra Work Phone: [facility] 02-06-2003 varicella virus vaccine Susan ica A Myra Work Phone: [facility] 07-02-2002 diphtheria, tetanus toxoids and acellular pertussis vaccine, unspecified formulation Ibis A Myra Work Phone: [employer] 250 DO Work Phone: 07-02-2002 DTaP, unspecified formulation Celeste RinBeryllium [facility] 07-02-2002 haemophilus influenz ae type b vaccine, conjugate unspecified formulation Ibis A Myra Work Phone: [employer] 250 DO Work Phone: 07-02-2002 Hib, unspecified formulation Celeste RinBeryllium [facility] 07-02-2002 pneumococcal conjuga te vaccine, 7 valent Ibis A Myra Work Phone: [facility] 250 DO Work Phone: 07-02-2002 poliovirus vaccine, inactivated Ibis A Myra Work Phone: [facility] 250 DO Work Phone: 07-02-2002 poliovirus vaccine, unspecified formulation Celeste Rinkes [facility] 05-19-2002 diphtheria, tetanus toxoids and acellular pertussis vaccine, unspecified formulation Ibis A Myra Work Phone: [employer] 250 DO Work Phone: 05-19-2002 DTaP, unspecified formulation [employer] [facility] 05-19-2002 haemophilus influenz ae type b conjugate and Hepatitis B vaccine Ibis A Myra Work Phone: [facility] 250 DO Work Phone: 05-19-2002 pneumococcal conjuga te vaccine, 7 valent Ibis A Myra Work Phone: [facility] 250 DO Work Phone: 05-19-2002 poliovirus vaccine, inactivated Ibis A Myra Work Phone: [employer] 250 DO Work Phone: 05-19-2002 poliovirus vaccine, unspecified formulation Celeste RinBeryllium [facility] 03-05-2002 diphtheria, tetanus toxoids and acellular pertussis vaccine, unspecified formulation Ibis A Myra Work Phone: [facility] [employer] DO Work Phone: 03-05-2002 DTaP, unspecified formulation Celeste MartinezBeryllium [facility] 03-05-2002 haemophilus influenz ae type b conjugate and Hepatitis B vaccine Ibis A Myra Work Phone: [facility] [employer] 250 DO Work Phone: 03-05-2002 poliovirus vaccine, inactivated Ibis A Myra Work Phone: [facility] DO Work Phone: 03-05-2002 poliovirus vaccine, unspecified formulation [employer] [facility] 2001 hepatitis B vaccine, pediatric or pediatric/adolescent dosage Ibis A Myra Work Phone: [facility] Payers Date Payer Category Payer Self-pay [id number] 2023 Unknown [id number] 2021 Private Health Insurance [id number] 2021 Private Health Insurance [id number] 2020 Private Health Insurance [facility] CHOICE PLUS [id number] 2020-Present [phone] [address] [place] [address] [facility] [place] [id number]. [id number] 2020 Unknown [id number] 2013 Medicaid [facility] MEDICAID [id number] 2013-Present [phone] [address] [place] [address] Medicaid [id number]. [id number] 2013 Medicaid [id number] [id number]. [id number] 2007 Unknown [id number] 2.16.840.1.334806.19 2001 Unknown [id number] 2.16.840.1.520128.3.579.2. 1068 2001 Unknown [id number] 2.16.840.1.030690.3.579.2. 594 2001 Unknown [id number] 2.16.840.1.649470.3.579.2. 594 2001 Unknown [id number] 2.16.840.1.488700.3.579.2. 356 2001 Unknown [id number] 2.16.840.1.456927.3.579.2. 356 2001 Unknown [id number] 2.16.840.1.567990.3.579.2. 356 2001 Unknown [id number] 2.16.840.1.735117.3.579.2. 356 2001 Unknown [id number] 2.16.840.1.914389.3.579.2. 356 2001 Unknown [id number] 2.16.840.1.858613.3.579.2. 356 2001 Unknown [id number] 2.16.840.1.628115.3.579.2. 356 2001 Unknown [id number] 2.16.840.1.606070.3.579.2. 356 2001 Unknown [id number] 2.16.840.1.233285.3.579.2. 727 2001 Unknown [id number] 2.16.840.1.747998.3.579.2. 727 2001 Unknown [id number] 2.16.840.1.055441.3.579.2. 727 2001 Unknown [id number] 2.16.840.1.350275.3.579.2. 727 2001 Unknown [id number] 2.16.840.1.306603.3.579.2. 727 2001 Unknown [id number] 2.16.840.1.719584.3.579.2. 9 2001 Unknown [id number] 2.16.840.1.537875.3.579.2. 1258 2001 Unknown [id number] 2.16840.1.466938.3.579.2. 1258 2001 Unknown [id number] 2.16.840.1.059350.3.579.2. 1259 2001 Unknown [id number] 2.16.840.1.429868.3.579.2. 9 2001 Unknown [id number] 2.16.840.1.706185.3.579.2. 9 2001 Unknown [id number] 2.16.840.1.426303.3.579.2. 1258 2001 Unknown [id number] 2.16.840.1.991793.3.579.2. 1259 2001 Unknown [id number] 2.16.840.1.547143.3.579.2. 1258 2001 Unknown [id number] 2.16.840.1.821777.3.579.2. 1259 Unknown Unknown [place] BC/BS [id number] Unknown [id number] 2.16.840.1.291381.3.579.2. 531 Social History Date Type Detail Facility Tobacco smoking stat us [facility] Tobacco smoking consumption unknown [facility] Work Phone: Start: 2001 Sex Assigned At Not on file [facility] Start: 01-15-2022 End: 07-31-2022 Exposure to SARS-CoV-2 (event) Not sure [facility] Start: 12-28-2022 End: 11-12-2023 Sex Assigned At [facility] Start: 12-28-2022 End: 11-12-2023 No alcohol use No alcohol use [facility] Comment on above: very rarely soda; Start: 09-20-2019 End: 07-31-2022 Tobacco smoking status WVIS Never smoked tobacco (finding) [facility] Start: 2001 Sex Assigned At Female F [facility] Start: 02-19-2018 End: 07-31-2022 Tobacco use and exposure Smokeless tobacco non-user [facility] Adult Depression Screening Assessment 0 [facility] Start: 09-29-2023 Gender identity Identifies as female gender (finding) [facility] Start: 06-04-2024 End: 07-07-2024 Alcoholic beverage intake Ex-drinker (finding) [facility] Do you belong to any clubs or organizations such as tenriism groups, unions, fraternal or athletic groups, or school groups? No [...] 04-05-2024 [facility] NEGATED: Highlighted rowStart: RIKF History of tobacco use Passive smoker [facility] Clinical Notes 09-24-2007 to 08-06-2024 Telephone Encounter - Jyoti Dickey PA-C - 08/06/2024 3:41 PM ESTTelephone Encounter - Jyoti Dickey PA-C - 08/06/2024 3:41 PM ESTTOMASZ Rizvi - 07/03/2024 2:30 PM EDT Note Date & Type Note Facility 08-06-2024 Telephone encounter Note Can we have her schedule for a follow up appointment. Can be virtual or in person. Lesli, AM [facility] Work Phone: 08-06-2024 Miscellaneous Notes Can we have her schedule for a follow up appointment. Can be virtual or in person. Thanks, AM documented in this encounter [facility] 07-03-2024 History of Present illness Narrative Reason [...] current . Patient is being referred to [facility] for her twin , gave her information about who she will be seeing there. No orders of the defined types were placed in this encounter. Follow Up: Patient is to return to office in 4 weeks for routine OB appointment. Documented by Ibis Sandoval on behalf of: TOMASZ Rizvi documented in this encounter [facility] 07-02-2024 History of Present illness Narrative Images from the original note were not included. [facility] Follow Up / Established Virtual Visit I have communicated my name and active licensure. The patient's identity and physical location were verified at the time of this visit. Either the patient or their legal claim service representative has been informed of the risks and benefits of -- and alternatives to -- treatment through a remote evaluation and consents to proceed with the evaluation remotely. Individuals who were included in, or assisted with the encounter were: Madyson Seaman APRN.WAREHOUSE PACKER Chief Complaint/Issues: Madyson Mai is a 23 year old female seen in the [facility] for: POTS Most Recent Neurological Assessment and Plan: 03/20/2024- with Jyoti Noble for POTS HPI/Interval History: She is 15 [...] & Plan 07/02/2024 - General Neurology, Joie Seaman APRN.WAREHOUSE PACKER ASSESSMENT Madyson Mai is a 23 year [...] which included preparing to see the patient, [id number] patient care, completing clinical documentation, obtaining and/or reviewing separately obtained history, performing a medically appropriate examination, counseling and educating the patient/family/caregiver, and ordering medications, tests, or procedures. Joie Seaman APRN.CNP 06/28/2024 [employer] [employer] Physical Health Summary [...] and warrants attention documented in this encounter [facility] 07-02-2024 Note HNO ID: [id number] Author: JOIE SEAMAN APRN.CNP Service: ? Author Type: Nurse Practitioner Type: Progress Notes Filed: 07/02/2024 19:57 Note Text: [facility] Follow Up / Established Virtual Visit I have communicated my name and active licensure. The patient's identity and physical location were verified at the time of this visit. Either the patient or their legal claim service representative has been informed of the risks and benefits of -- and alternatives to -- treatment through a remote evaluation and consents to proceed with the evaluation remotely. Individuals who were included in, or assisted with the encounter were: Madyson Mai Joie Seaman APRN.WAREHOUSE PACKER Chief Complaint/Issues: Madyson Mai is a 23 year old female seen in the [facility] for: POTS Most [...] AND Plan 07/02/2024 - General Neurology, Joie Seaman APRN.WAREHOUSE PACKER ASSESSMENT Madyson Mai is a 23 year [...] Mostly Moderately S (more content not included)... [facility] 03-20-2024 History of Present illness Narrative Images from the original note were not included. [facility] Follow-Up VIRTUAL VISIT This is a virtual visit using Slated Zoom Video Visit. It required patient-provider interaction for the medical decision making as documented below. I have communicated my name and active licensure. The patient's identity and physical location were verified at the time of this visit. Either the patient or their legal claim service representative has been informed of the [...] which included preparing to see the patient, sgrj-gn-[id number] patient care, completing clinical documentation, obtaining and/or reviewing separately obtained history, performing a medically appropriate examination, counseling and educating the patient/family/caregiver, and ordering medications, tests, or procedures. Jyoti Dickey PA-C Neuromuscular Medicine [address] [place] [address]. [id number] Appointment: [phone] During our virtual visit encounter we discussed [...] problem? : Mild documented in this encounter [facility] 03-20-2024 Note HNO ID: [id number] Author: JYOTI DICKEY PA-C Service: ? Author Type: Physician Assembly Line Brazer Type: Progress Notes Filed: 03/20/2024 15:17 Note Text: [facility] Follow-Up VIRTUAL VISIT This is a virtual visit using Drivyom Video Visit. It required patient-provider interaction for the medical decision making as documented below. I have communicated my name and active licensure. The patient's identity and physical location were verified at the time of this visit. Either the patient or their legal claim service representative has been informed of the [...] the mean hea (more content not included)... [facility] 11-30-2023 History of Present illness Narrative Images from the original note were not included. [facility] New Patient Evaluation [...] experienced LOC while walking up the stairs. [place] prodromal symptoms including lightheadedness and tunnel vision. [...] Plantarflexion 5/5 5/5 Movement/Coordination Finger-to- nose-finger and lzyy-lq-mxlf intact bilaterally. No evidence of ataxia arms. [...] which included preparing to see the patient, gofp-jl-vwtx patient care, completing clinical documentation, obtaining and/or [...] on 11/30/23. Jyoti Dickey PA-C Neuromuscular Medicine [address] [place] [address]. [phone] Appointment: [phone] 1. This office note has been dictated [...] problem? : Moderate documented in this encounter [facility] 11-30-2023 Note HNO ID: [id number] Author: JYOTI DICKEY PA-C Service: ? Author Type: Physician Assembly Line Brazer Type: Progress Notes Filed: 11/30/2023 11:14 Note Text: [facility] New Patient Evaluation [...] experienced LOC while walking up the stairs. [place] prodromal symptoms including lightheadedness and tunnel vision. [...] breathing: - Tac (more content not included)... [facility] 11-12-2023 Note HNO ID: [id number] Author: ?, ?, ? Service: ? Author [...] Care Visit completed when applicable. Gauri Harris [facility] 11-12-2023 History of Present illness Narrative [...] applicable. Gauri Harris documented in this encounter [facility] 10-10-2023 Note HNO ID: [id number] Author: AURORA SANTIAGO PA-C Service: ? Author Type: Physician Assembly Line Brazer Type: Progress Notes Filed: 10/10/2023 16:33 Note Text: [facility] New Patient Evaluation [...] No current facility-adminis (more content not included)... [facility] 10-10-2023 Note HNO ID: [id number] Author: ANGELIQUE RUTH MD Service: ? Author [...] VE Couplets or VE Triplets were present. [facility] 07-20-2023 Telephone encounter Note Call to Madyson to discuss referral to dysautonomia clinic. Informed her that we are unable to provide dysautonomia evaluation at this time. Provided number for [facility] scheduling service. No other needs at this time. [facility] 07-20-2023 Miscellaneous Notes Call to Madyson to discuss referral to dysautonomia clinic. Informed her that we are unable to provide dysautonomia evaluation at this time. Provided number for [facility] scheduling service. No other needs at this time. documented in this encounter [facility] 07-10-2023 Note HNO ID: [id number] Author: Jose Armando Grey DO Service: ? Author Type: Physician Type: Progress Notes Filed: 07/10/2023 10:08 AM Note Text: [facility] Office Visit Documentation Note [facility] Sports Medicine Orthopaedic and Rheumatologic [place] HISTORY OF PRESENT ILLNESS (HPI) CHIEF COMPLAINT / REASON FOR VISIT SERVICE DATE: July 10, 2023 PCP: No primary care provider on file. aMdyson Schmid is here today at request of Dr. Jose Armando Schmid specifically for consultation of my opinion in regards to the chief complaint listed below. Correspondence will be shared today via the [employer] electronic health record or through regular mail, [...] expectations. 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 Reaction knee brace Consider [place] toradol, did discuss orthobiologics Follow up: Films prior to visit: Written instructions (see patient instructions) and verbal health education given to patient. Patient verbalizes understanding and agrees with the treatment plan. Jose Armando Grey D.O. [facility] Orthopaedic and Rheumatologic Crop Pest Control Specialist, [facility] AND Mark Program Team Physician, [facility] Baseball Club Consulting Physician, [place] Martin Nagel, Light Equipment Operator [phone] [facility] 07-10-2023 History of Present illness Narrative Images from the original note were not included. [facility] Office Visit Documentation Note [facility] Sports Medicine Orthopaedic and Rheumatologic [place] HISTORY OF PRESENT ILLNESS (HPI) CHIEF COMPLAINT / REASON FOR VISIT SERVICE DATE: July 10, 2023 PCP: No primary care provider on file. Madyson Schmid is here today at request of Dr. Jose Armando Schmid specifically for consultation of my opinion in regards to the chief complaint listed below. Correspondence will be shared today via the [employer] electronic health record or through regular mail, [...] expectations. 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 Reaction knee brace Consider [place] toradol, did discuss orthobiologics Follow up: Films prior to visit: Written instructions (see patient instructions) and verbal health education given to patient. Patient verbalizes understanding and agrees with the treatment plan. Jose Armando Grey D.O. [facility] Orthopaedic and Rheumatologic Crop Pest Control Specialist, [facility] [employer] Program Team Physician, [facility] Baseball Club Consulting Physician, [place] Martin Nagel, Light Equipment Operator [phone] documented in this encounter [facility] 12-28-2022 History of Present illness Narrative Madyson [...] surgery Evaluated by DR Case ([facility] [place]) in 2020 no rheum issue found and [...] Swollen Glands: No documented in this encounter [facility] 07-31-2022 History of Present illness Narrative Madyson [...] surgery Evaluated by DR Case ([facility] [place]) in 2020 no rheum issue found and [...] Swollen Glands: No documented in this encounter [facility] 07-10-2022 History of Present illness Narrative Most [...] she did get a second opinion in [place], and no change in medication was suggested [...] with paucity of objective findings on the [id number]. Abnormal tilt table test, with a combination [...] I will defer that to Dr. Link [facility] 250 DO Work Phone: 06-12-2022 Note Pre-procedure Verifi cation and Time Out: Pre-Procedure Verification and Time Out: Procedure Locationbedside PRE-PROCEDURE Verificationcompleted TIME OUT - Final Verificationcompleted immediately prior to procedure start General Information: Anesthesia Critical Care: Non-Anesthesia Date/Time of Procedure: 12-Jun-2022 Post-Procedure Diagnosis: syncope Procedure Name: tilt table test Findings: grossly normal anatomy Procedure performed by: nj Assembly Line Brazer(s): none Estimated Blood Loss (mL): none Specimen: [...] Last Updated: 14-Jun-2022 11:56 by Annalee Maza) [facility] 03-24-2022 History of Present illness Narrative Patient [...] while walking to the bathroom.She will see book reviewer in the near future, she had her pulmonary function test which I reviewed, there is concern for chronic asthma, but no reactive airway disease.She has 3 dogs that she had, and 1 cat at home.She is not orthostatic. She is feeling palpitations quite a bit.Results of the pulmonary function test and a Micah of [employer] was reviewed. Also reviewed stress test and [...] that, we will have to schedule at [facility], and patient is okay with driving.4. Lifestyle modifications such as regular aerobic activity as tolerated, excessive sodium intake, and possibly low-dose beta-blockers can be tried. If her breathing gets worse on the beta-blockers, then she should stop it. We will decide after seen by pulmonary, and also after the results of culpable test are available. -[facility] 250 DO Work Phone: 03-24-2022 History of [...] while walking to the bathroom.She will see book reviewer in the near future, she had her pulmonary function test which I reviewed, there is concern for chronic asthma, but no reactive airway disease.She has 3 dogs that she had, and 1 cat at home.She is not orthostatic. She is feeling palpitations quite a bit.Results of the pulmonary function test and a Micah of [employer] was reviewed. Also reviewed stress test and [...] that, we will have to schedule at [facility], and patient is okay with driving.4. Lifestyle modifications such as regular aerobic activity as tolerated, excessive sodium intake, and possibly low-dose beta-blockers can be tried. If her breathing gets worse on the beta-blockers, then she should stop it. We will decide after seen by pulmonary, and also after the results of culpable test are available. -[facility] 250 DO Work Phone: 02-02-2022 Miscellaneous Notes Spoke [...] P Mathai, MD documented in this encounter [facility] 01-25-2022 History of Present illness Narrative Madyson [...] February Evaluated [place] DR Case ([facility] [place]) in 2020 no rheum issue found and [...] February Evaluated by DR Case ([facility] [place]) in 2020 no rheum issue found and [...] any joints noted on exam today Discussed [facility] patient as follows- Regarding acute onset of [...] Irvin Hanna MD documented in this encounter [facility] 01-10-2022 Evaluation note Encounter Date Diagnosis Assessment Notes Dec, Skin rash (ICD-10 - R21) Dec, Other Transient recurrent color gear changer the knees and toes I do [...] will go ahead with her evaluation in [facility]. [facility] Other 01-17-2022 Evaluation note* Encounter Date Diagnosis [...] day as needed for pain and swelling. [facility] 07-01-2021 History of Present illness Narrative* [...] heart murmur and has been transferred to [facility] * There is no family history [...] needed, treatment options, risks, benefits, and imponderables. [place] [employer] lifestyle changes and behavioral modification discussed. All questions answered in detail. Counseling over 50% visit regarding above. Patientappreciative of care. * At the end the office visit, she did report that she will be seeing an electronic commerce specialist in [place]. We did discuss that she could hold [...] software dictation application being used. -[facility] 320 DO Work Phone: [phone]) 913-387608-25-2020 History of Present illness Narrative* She is [...] exposed to secondhand smoke from her mother. -[facility]-Jose 250 DO Work Phone: [phone]) 101-651007-09-2020 History of Present illness Narrative* Patient is [...] [facility], and has history of heart murmur. * [...] arise, * Sincerely, * Melodie alcaraz MD [facility] Work Phone: [phone]) 141-599207-01-2020 History of Present illness Narrative* Patient is [...] twin [facility], and has history of heart murmur. * [...] * Sincerely, * Melodie alcaraz MD [facility] 250 DO Work Phone: [phone]) 578-171806-30-2020 History of Present illness Narrative* Patient is [...] twin brother had to be taken to [facility], and has history of heart murmur. [...] * Sincerely, * Melodie alcaraz MD [facility] [employer] DO Work Phone: [phone]) 673-619301-01-2008 History general Narrative - Reported* Type Description Date Medical History general health good Surgical History tonsillectomy and adenoidectomy 09/2007 [facility] Other 01-01-2008 History general Narrative - Reported* Type Description Date Medical History general health good Surgical History tonsillectomy and adenoidectomy 09/2007 Surgical History right knee cleaned up scar tiss ue 2020 [facility] Other Chief complaint Narrative - ReportedMADYSON SCHMID is being seen for a cardiovascular evaluation of abnormal test(s) results and dyspnea.[facility] [employer] 250 DO Work Phone: Chixq complaint Narrative - ReportedMADYSON SCHMID is being seen for a cardiovascular evaluation of abnormal test(s) results and dyspnea.[facility] Work Phone: Evaluation + Plan note No data available for this section [facility]* Diagnosis Pain and swelling of knee, right- Primary Joint stiffness Stiffness of joint, not elsewhere classified, unspecified site documented [facility] this encounter [facility]Evaluation noteNo assessment information availableFirelands Regional Medical [facility]tr Work Phone: Evaluation note* Diagnosis Pain and swelling of knee, right- Primary Joint stiffness Stiffness of joint, not elsewhere classified, unspecified site Inflammatory arthritis Unspecified inflammatory polyarthropathy documented in this encounter [facility] note* Diagnosis Pain and swelling of knee, right- Primary Joint stiffness Stiffness of joint, not elsewhere classified, unspecified site documented in this encounter [facility] note* Diagnosis Right knee pain, unspecified chronicity- Primary documented in this encounter [facility] note* Diagnosis Chronic pain of right knee- Primary Tendinopathy of gluteal region Unspecified disorder of synovium, tendon, and bursa documented in this encounter [facility] note* Diagnosis Orthostatic lightheadedness- Primary Dizziness and giddiness documented in this encounter [facility] note* Diagnosis POTS (postural orthostatic tachycardia syndrome)- Primary Tachycardia, unspecified documented in this encounter [facility] note* Diagnosis POTS (postural orthostatic tachycardia syndrome)- Primary Tachycardia, unspecified documented in this encounter [facility] note* Diagnosis POTS (postural orthostatic tachycardia syndrome)- Primary Tachycardia, unspecified Near syncope Syncope and collapse documented in this encounter [facility] note* Diagnosis Second trimester state, incidental 14 [...] heart murmur and had been transferred to [facility] * There is no change in [...] and patient opted to follow-up here at [facility]. * Zio patch August 2022. All rhythms [...] needed, treatment options, risks, benefits, and imponderables. [employer] lifestyle changes and behavioral modification discussed. All questions answered in detail. Counseling over 50% visit regarding above. Patient appreciative of care. * Grammar * Please excuse grammatical or dictation errors as software dictation application being used. -[facility] 320 DO Work Phone: History of Present illness Narrative* The patient states she has been generally stable since the last visit. * Symptoms: denies chest pain at rest, denies exertional chest pain, denies dyspnea, stable fatigue, denies exercise intolerance, stable palpitations, denies edema, denies orthopnea, stable dizziness and stable orthostatic dizziness. * Disease Monitoring: [facility] 600 DO Work Phone: Hospital Discharge instructions No data available for this section [facility] HospitalInstructionsNot on filedocumented in this encounter [facility] No data available for this section [facility] HospitalReason for referral (narrative)* Diagnostic Procedure Only (Routine) - Pending Review Specialty Diagnoses / Procedures Referred By Rachel lópez Referred To Contact XR IMAGING Diagnoses Right knee pain, unspecified chronicity Procedures XR KNEE GENERAL 4V AP BOTH/PA BOTH/LAT/MERC RIGHT RADIOLOGIC EXAM KNEE COMPLETE 4/[place] [address] [place] [address] [place] [id number] Referral ID Status Reason Start Date Expiration Date Visits Requested Visits Authorized [id number] Pending Review Auto-Generat ed Referral 3 08/04/2024 1 1 [facility] for visit Narrativerash knee referral from Cj Jaimes, She gets a funny rash on her knee and toesNorth [employer] Other Summary Purpose Family History No Family [...] or prosecute any alcohol or drug abuse patient.[facility] CenterIn the event this information is protected by the Federal Confidentiality of Alcohol and Drug Abuse Patient Records regulations: The Federal rules restrict any use of the information to criminally investigate or prosecute any alcohol or drug abuse patient.[facility] CenterIn the event this information is protected by the Federal Confidentiality of Alcohol and Drug Abuse Patient Records regulations: The Federal rules restrict any use of the information to criminally investigate or prosecute any alcohol or drug abuse patient.[facility] CenterIn the event this information is protected by the Federal Confidentiality of Alcohol and Drug Abuse Patient Records regulations: The Federal rules restrict any use of the information to criminally investigate or prosecute any alcohol or drug abuse patient.[facility] CenterIn the event this information is protected by the Federal Confidentiality of Alcohol and Drug Abuse Patient Records regulations: The Federal rules restrict any use of the information to criminally investigate or prosecute any alcohol or drug abuse patient.[facility] CenterIn the event this information is protected by the Federal Confidentiality of Alcohol and Drug Abuse Patient Records regulations: The Federal rules restrict any use of the information to criminally investigate or prosecute any alcohol or drug abuse patient.[facility] CenterIn the event this information is protected by the Federal Confidentiality of Alcohol and Drug Abuse Patient Records regulations: The Federal rules restrict any use of the information to criminally investigate or prosecute any alcohol or drug abuse patient.[facility] CenterIn the event this information is protected by the Federal Confidentiality of Alcohol and Drug Abuse Patient Records regulations: The Federal rules restrict any use of the information to criminally investigate or prosecute any alcohol or drug abuse patient.[facility] CenterIn the event this information is protected by the Federal Confidentiality of Alcohol and Drug Abuse Patient Records regulations: The Federal rules restrict any use of the information to criminally investigate or prosecute any alcohol or drug abuse patient.[facility] CenterIn the event this information is protected by the Federal Confidentiality of Alcohol and Drug Abuse Patient Records regulations: The Federal rules restrict any use of the information to criminally investigate or prosecute any alcohol or drug abuse patient.[facility] CenterIn the event this information is protected by the Federal Confidentiality of Alcohol and Drug Abuse Patient Records regulations: The Federal rules restrict any use of the information to criminally investigate or prosecute any alcohol or drug abuse patient.[facility] CenterIn the event this information is protected by the Federal Confidentiality of Alcohol and Drug Abuse Patient Records regulations: The Federal rules restrict any use of the information to criminally investigate or prosecute any alcohol or drug abuse patient.[facility] Reason for Visit (unrecogniz ed section and content) Reason Comments New Patient Reason Comments Orders Reason Comments Follow Up Reason Comments 4 Month Follow Up Reason Onset Date Comments Referral Follow-up 07/20/2023 Reason Comments Procedure Reason Comments New Patient Consult Reason Comments Follow Up Reason Comments POTS Reason Comments Routine Visit INFORMATION SOURCE (unrecogn ized section and content) DATE CREATED AUTHOR 02/03/2022 [facility] DATE CREATED AUTHOR AUTHOR'S ORGANIZ ATION 06/24/2022 [facility] DATE CREATED AUTHOR AUTHOR'S ORGANIZ ATION 09/15/2022 [employer] DATE CREATED AUTHOR AUTHOR'S ORGANIZ ATION 03/16/2023 [facility] DATE CREATED AUTHOR AUTHOR'S ORGANIZ ATION 06/15/2023 [facility] DATE CREATED AUTHOR AUTHOR'S ORGANIZ ATION 07/11/2023 [facility] DATE CREATED AUTHOR AUTHOR'S ORGANIZ ATION 03/15/2024 [facility] DATE CREATED AUTHOR AUTHOR'S ORGANIZ ATION 04/15/2024 [facility] DATE CREATED AUTHOR AUTHOR'S ORGANIZ ATION 07/04/2024 [facility] DATE CREATED AUTHOR AUTHOR'S ORGANIZ ATION 07/11/2024 [facility] DATE CREATED AUTHOR AUTHOR'S ORGANIZ ATION 07/26/[address] [facility] DATE CREATED AUTHOR AUTHOR'S ORGANIZ ATION 08/06/2024 [facility] EPIC Care Teams (unrecognized sec tion and content) Team Status: Inactive Member Role Status Dates Ibis Renteria NP-C Primary Care Provider Activ e CARLOS Conway Attending Provider Active Team Status: Inactive Member Role Status Dates CARLOS Harley Primary Care Provider Activ e Melodie Alcaraz MD Attending Provider Active Team Status: Inactive Member Role Status Dates CARLOS Harley Primary Care Provider Activ e Melodie Alcaraz MD Attending Provider Active Álvaro Osborn MD Referring Provider Active Team Status: Active Member Role Status Dates Ibis Renteria NP-Akila Primary Care Provider Activ e Team Status: Inactive Member Role Status Dates Ibis Maggy Myra , NURSE OB-C Primary Care Provider Activ e Dyllan Pearce , CLAIMS CORRESPONDENCE CLERK Emergency Provider Active Team Status: Inactive Member Role Status Dates Ibis Renteria , NURSE OB-C Primary Care Provider Activ e Christina Perez , CLAIMS CORRESPONDENCE CLERK Attending Provider Active Team Status: Inactive Member Role Status Dates Ibis Renteria , NURSE OB-C Primary Care Provider Activ e Carlitos Nguyen Jr, DO Attending Provider Active Boarding House Manager Relationship Specialty Start Date End Date Ibis Renteria [employer] [address] [place] [address] PCP - General Nurse Practitioner 07/09/23 Boarding House Manager Relationship Specialty Start Date End Date Ibis Renteria CNP [address] [place] [address] PCP - General Nurse Practitioner 07/09/23 Team Status: Inactive Member Role Status Dates Ibis Renteria , NURSE OB-C Primary Care Provider Activ e Haris Martino , DO Emergency Provider Active Team Status: Inactive Member Role Status Dates Ibis Renteria , NURSE OB-C Primary Care Provider Activ e Nam Barnes , DO [facility] Attending Provider Active Boarding House Manager Relationship Specialty Start Date End Date Jb Mandujano MD [address] [facility] [address] [place] [address] PCP - General Family Medicine 05/20/24 Osei Malik DO [address] [place] [address] Referring Physician Obstetrics and Gynecology 06/05/24 Flori Gil PA [address] [place] [address] Physician Assembly Line Brazer Obstetrics and Gynecology 06/05/24 Boarding House Manager Relationship Specialty Start Date End Date Jb Mandujano MD [address] [facility] [address] [place] [address] PCP - General Family Medicine 05/20/24 Osei Malik DO [address] [place], [place] [id number] Referring Physician Obstetrics and Gynecology 06/05/24 Flori Gil PA [address] [place] [address] Physician [employer] Brazer Obstetrics and Gynecology 06/05/24 Boarding House Manager Relationship Specialty Start Date End Date Asuncion Boateng MD [address] [place] [id number] PCP - General 11/30/17 Goals (unrecognized [...] BE BASED ON THE PRIMARY CLINICAL RECORDS. [employer] provides no warranty or guarantee of the accuracy or completeness of information in this document.
[2024-08-13 01:08] LABS: AFP Value 103.1 ng/mL (.); Gest. Age on Collection Date 20.3 weeks (.); Insulin Dep Diabetes No (.); OSBR Risk 1 IN 1081 (.); Results Report (.)
== END 2024-08-11 10:20 | disposition home or self-care (01) ==
LOC: LAB 10:20
PROVIDERS: PCP Family Medicine; Visit Provider Physician Assistant
DX: Z34.92 Encounter for supervision of normal pregnancy, unspecified, second trimester (principal)
CPT/HCPCS: 36415; 82105

== ENCOUNTER 2024-08-20 09:18 | Outpatient (OUT) | payer OTHER, SELFPAY ==
--- OUTSIDE RECORDS SUMMARY | 2024-08-20 09:28 | XMS_ITS | CCD ---
Author Organization [facility] Care Team Providers Care Pipe Line Walker Name Role Phone Unavailable Primary Care Provider Unavailsoniya e Christina Pearce Unavailable Ok Mckeon Unavailable Ibis Renteria Unavailable Unavailable Unavailable CARLOS Renteria Primary Care Provider MD Melodie Alcaraz Attending Provider [phone] MD Álvaro Osborn Referring Provider CARLOS Davidson Attending Provider JOHNNY Pearce Emergency Provider Link, Dr. Annalee Torres Attending Unavailab Dr. Melodie Dawson Referring Unavailable Myra, Ms. Ibis Winter Primary Care Unavail able Link, Dr. Annalee Torres Admitting Unavailab le Unavailable Primary Care Provider Unavailsoniya e Unavailable Primary Care Provider UnavailCARLOS Salas Primary Care Provider JOHNNY Perez Attending Provider CHAN MUÑIZ Attending UnavailIBIS Salas Referring Unavailable MYRA, IBIS Primary Care Unavailable IBIS RENTERIA Primary Care Unavailable SPRING UMAÑA Referring Unavailable CHAN MUÑIZ Attending UnavailCARLOS Salas Primary Care Provider DO Carlitos Nguyen Jr Attending Provider Dr. Annalee Maza Attending Unavailab le Link, Dr. Annalee Torres Referring Unavailab le Myra, Ms. Ibis Winter Primary Care Unavail able Link, Dr. Annalee Torres Attending Unavailab le Link, Dr. Annalee Torres Referring Unavailab le Myra, Ms. Ibis Winter Primary Care Unavail able Link, Dr. Annalee Torres Attending Unavailab le Alcaraz, Dr. Sewell Referring Unavailable Myra, MsJesika Winter Primary Care Unavail able Alcaraz, Dr. Sewell Attending Unavailable Alcaraz, Dr. Sewell Referring Unavailable Myra, Ms. Ibis Winter Primary Care Unavail able Link, Dr. Annalee Torres Attending Unavailab le Link, Dr. Annalee Trores Referring Unavailab le Myra, MsJesika Winter Primary Care Unavail able Alcaraz, Dr. [...] Myra Ibis GOODSON Primary Care Provider Myra, [employer] SAL[employer] DELIV[employer]IVERS SUPERVISOR-C Ibis Winter Primary Care Provider DO Haris Martino Emergency Provider [phone] DO Nam Barnes Attending Provider JB MANDUJANO Primary Care Physician Rinkes, Celeset Admitting Unavailable Rinkes, Celeste Attending Unavailable ISIDROJocelin T Attending Unavailable Mae, CORPORATE FITNESS PROGRAM COORDINATOR Krista L Attending Unavailable Mae, CORPORATE FITNESS PROGRAM COORDINATOR Krista L Attending Unavailable Unavailable Primary Care Provider Unavailabl e Rinkes, Celeste Attending Unavailable Rinkes, Celeste Admitting Unavailable Rinkes, Celeste Attending Unavailable Rinkes, Celeste Admitting Unavailable AURORA SANTIAGO M Referring Unavailable SANTIAGO, AURORA M Referring Unavailable SANTIAGOAURORA ROONEY M Attending Unavailable JOIE SEAMAN Attending Unavailable NOBLE, JYOTI Attending Unavailable NOBLE, JYOTI Attending Unavailable SANTIAGO, AURORA M Referring Unavailable AURORA SANTIAGO Referring Unavailable Jb Mandujano MD Primary Care Provider Osei Malik DO Unavailable Flori Sam Unavailable Ander Boateng MD Primary Care Provider [facility] Attending Unavailable [facility] Admitting Unavailable Ibis Renteria Primary Care Unavailable Rinradha, Celeste Attending Unavailable Shirley, Celeste Admitting Unavailable RINCELESTE WARNER E Attending Unavailable CELESTE WATSON E Attending Unavailable JB MANDUJANO Attending Unavailable JB MANDUJANO Attending Unavailable MAURISIO GASTON Attending Unavailable OSEI MALIK Attending Unavailable FLORI GIL Attending Unavailable FLORI GIL Attending Unavailable OSEI MALIK Referring Unavailable ANDER BOATENG Primary Care Unavailable HAMMAD HATCH Attending Unavailable OSEI MALIK Referring Unavailable ZAK BOATENGIYA Primary Care Unavailable Allergies Allergy Classification Reported Allergen(s) Allergy Type Date of Onset Reaction(s) Facility Acetaminophen / oxyCODONE (1 source) Acetaminophen / oxyCODONE; Translations: [acetaminophen-o xycodone] Drug Allergy [facility] Comment on above: no narcotics, GI ups et Chlorhexidine (1 source) Chlorhexidine; Translations: [chlorhexidine topical] Drug Allergy Itching [facility] Corticosteroids (1 source) predniSONE; Translations: [prednisone] Drug Allergy [facility] (14 sources) Morphinan opioid; Translations: [OPIOIDS - MORPHINE ANALOGUES] Propensity to adverse reactions to drug 01-26-20 Other: See Comments [facility] (20 sources) predniSONE; Translations: [predniSONE] Drug Allergy 01-26-20 Other: See Comments, Dizziness [facility] (16 sources) prednisoLONE; Translations: [prednisolone] Drug Allergy 01-11-20 GI Disturbance [employer] Other (15 sources) Fludrocortisone; Translations: [Florinef TABS] Drug Allergy Nausea [facility] DO Work Phone: (20 sources) Midodrine; Translations: [midodrine] Drug Allergy 08-13-20 23 GI bleeding [facility] (3 sources) Acetaminophen / oxyCODONE; Translations: [Percocet] Drug Allergy [facility] (4 sources) Chlorhexidine; Translations: [chlorhexidine topical] Drug Allergy Itching [facility] (4 sources) Acetaminophen / oxyCODONE; Translations: [acetaminophen-o xycodone] Drug Allergy 07-07-20 24 GI Disturbance [facility] [place] Comment on above: no narcotics, GI ups et (10 sources) Acetaminophen / oxyCODONE; Translations: [OXYCODONE-ACETA MINOPHEN] Drug Allergy 02-26-20 24 [facility] (13 sources) Chlorhexidine; Translations: [CHLORHEXIDINE] Drug Allergy 02-21-20 23 Itching [facility] Work Phone: (13 sources) Fludrocortisone; Translations: [FLUDROCORTISONE ] Drug Allergy 07-26-20 22 Nausea [facility] (9 sources) Prednisone Allergy to substance 02-18-20 23 Dizziness [facility] (1 source) predniSONE Drug Allergy 06-08-20 23 [facility] Repository Medications Current Medications Medication Drug Class(es) Dates Sig (Normalized) Sig (Original) [id number] 200 actuat albuterol 0.09 mg/actuat metered dose inhaler (18 sources) beta2-Adrenergic Agonist Start: 03-13-2023 albuterol HFA [...] sources) Progestin, Estrogen Ortho Evra A ctive magnesium oxide 400 mg oral tablet (6 sources) Start: 4 End: 4 take 1 tablet by mouth once daily magnesium oxide (Mag-Ox) 400 MG tablet Indications: Leg cramping Take 1 tablet (400 mg) by mouth Daily 30 tablet 3 08/05/2024 09/04/2024 Active Start: 06-13-2023 take 1 tablet by efrain th once daily Magnesium Oxide 400 MG Oral Tablet take 1 tablet by mouth once daily Quantity: 30 Refills: 6 Ordered: 13-Jun-2023 Tabatha Savage Start : 13-Jun-2023 Active metroNIDAZOLE 500 mg oral tablet (1 source) Nitroimidazole Antimicrobial Start: 08-07-2024 End: 08-14-2024 take 1 tablet by mouth in the morning metroNIDAZOLE (Flagyl) 500 MG tablet Indications: BV (bacterial vaginosis) Take 1 tablet (500 mg) by mouth in the morning and 1 tablet (500 mg) before bedtime. Do all this for 7 days. Do not drink alcohol while taking this medication. 14 tablet 08/07/2024 08/14/2024 Active Churdan (No Known Home Meds) (1 source) Start: 06-08-2023 Churdan (No Known Home Meds) Active June 08, 2023 12:00am omeprazole 20 mg delayed release oral capsule (7 sources) Proton Pump Inhibitor Start: 08-05-2024 End: 08-05-2025 take 1 capsule by mouth before mealtime omeprazole (PriLOSEC) [address] capsule Indications: Heartburn Take 1 capsule (20 mg) by mouth in the morning. Take before meals. Do not crush or chew.. 30 capsule 08/05/2024 08/05/2025 Active Start: 12-11-2023 take 1 capsule by mo [facility] once daily omeprazole 40 mg Cap-DR 40 mg = 1 cap(s), Oral, Daily, # 30 cap(s), Refills(s) 1, Pharmacy: [facility], 168.3, cm, 12/11/23 13:07:00 EDT, Height/Length Dosing, 93.6, kg, 12/11/23 13:07:00 EDT, Weight Dosing Start Date: 12/11/23 Status: Ordered no115/iron/folic acid ( 19 ORAL) (3 sources) no115/i jami/folic acid ( 19 ORAL) Take by mouth. Active Vit-Fe Fumarate-FA (M- Plus) 27-1 MG tablet (9 sources) Start: 07-07-2024 End: 07-07-2025 take 1 tablet by mouth once daily Vit-Fe Fumarate-FA (M- Plus) 27-1 MG tablet Indications: Patient desires Take 1 tablet by mouth Daily 30 tablet 11 07/07/2024 07/07/2025 Active Start: 06-06-2024 End: 06-06-2025 take 1 tablet by mouth once daily [...] 01, 2022 12:00am June 08, 2023 4:31pm azithromycin 250 mg oral tablet (3 sources) Macrolide Antimicrobial Start: 07-08-2024 End: 08-05-2024 azithromycin (Zithromax Z-Nabil) 250 MG tablet Indications: Sinus drainage As directed 6 tablet 07/08/2024 08/05/2024 Discontinued (Other) diclofenac sodium 75 mg delayed release oral [...] Start: 08-01-2022 take 1 capsule by mo [facility] three times daily Droxidopa 100 MG Oral [...] 1 tablet by efrain th twice daily. methotrexate 2.5 mg oral tablet (4 sources) Folate Analog Metabolic Inhibitor Start: take 6 tablets by mouth every week [...] Active Problems Problem Classification Problem Date Documented Da te Episodic/Chronic Administrative/social admission (20 sources) Follow-up status; Translations: [Other specified counseling] Episodic Asthma (20 sources) Mild intermittent asthma; Translations: [Asthma, unspecified type, unspecified] Onset: 3 02-26-2024 Chronic Cardiac dysrhythmias (20 sources) Ventricular premature beats; Translations: [Other premature beats] Onset: 3 11-30-2023 Chronic Conduction disorders (2 sources) Unspecified right bundle-branch block; Translations: [Unspecified right bundle-branch block] Onset: 2 Chronic Esophageal disorders (11 sources) Gastroesophageal reflux disease; Translations: [Gastro-esophageal reflux disease without esophagitis] Onset: 4 12-11-2023 Chronic Headache; including migraine (9 sources) Tension-type headache; Translations: [Tension-type headache, unspecified, not intractable] Onset: 4 03-25-2024 Chronic Influenza (4 sources) Influenza due to Influenza A virus; Translations: [Influenza due to other identified influenza virus with other respiratory manifestations] 06-01-2022 Episodic Joint disorders and dislocations; trauma-related (18 sources) Chondromalacia of right patella; Translations: [Chondromalacia patellae, right knee] Onset: 3 02-17-2023 Chronic Menstrual disorders (18 sources) Dysmenorrhea; Translations: [Dysmenorrhea, unspecified] Onset: 4 02-26-2024 Chronic Osteoarthritis (1 source) Arthritis; Translations: [Unspecified osteoarthritis, unspecified site] Chronic Other aftercare (16 sources) Treatment changed; Translations: [Long-term (current) use of other medications] Episodic Other circulatory disease (18 sources) Low blood pressure; Translations: [Hypotension, unspecified] Episodic Other circulatory disease (17 sources) Orthostatic hypotension; Translations: [Orthostatic hypotension] 11-12-2023 Episodic Other circulatory disease (2 sources) Postural orthostatic tachycardia syndrome ; Translations: [Postural orthostatic tachycardia syndrome (POTS)] Onset: 4 08-15-2024 Episodic Other complications of (2 sources) Asthma; Translations: [Diseases of the respiratory system complicating , unspecified trimester] 08-15-2024 Episodic Other complications of (1 source) Diseases of the respiratory system complicating , unspecified trimester; Translations: [Diseases of the respiratory system complicating , unspecified trimester] Onset: 4 Episodic Other connective tissue disease (2 sources) Tendinitis of right posterior tibial tendon; Translations: [Posterior tibial tendinitis, right leg] Episodic Other connective tissue disease (1 source) Disorder of tendon; Translations: [Unspecified disorder of synovium and tendon, unspecified thigh] 07-10-2023 Episodic Other connective tissue disease (1 source) Unspecified disorder of synovium and tendon, unspecified thigh; Translations: [Tendinopathy of gluteal region] Onset: 3 Episodic Other connective tissue disease (2 sources) Cramp in lower limb; Translations: [Cramp and spasm] 08-05-2024 Episodic Other endocrine disorders (9 sources) Polycystic ovary syndrome; Translations: [Polycystic ovarian syndrome] Onset: 4 02-26-2024 Chronic Other female genital disorders (2 sources) Vaginal discharge; Translations: [Other specified noninflammatory disorders of vagina] 08-05-2024 Episodic Other gastrointestinal disorders (2 sources) Heartburn; Translations: [Heartburn] 08-05-2024 Episodic Other nervous system disorders (1 source) Other chronic pain; Translations: [Chronic pain of right knee] Onset: 3 Chronic Other non-traumatic joint disorders (6 sources) Pain in right knee; Translations: [Pain in joint, lower leg] Onset: 3 Episodic Other non-traumatic joint disorders (3 sources) Joint stiffness; Translations: [Stiffness of unspecified joint, not elsewhere classified] Episodic Other nutritional; endocrine; and metabolic disorders (20 sources) Obesity; Translations: [Obesity, unspecified] Chronic Other and delivery including normal (8 sources) Second trimester ; Translations: [Encounter for supervision of normal , unspecified, second trimester] Onset: 4 07-03-2024 Episodic Other screening for suspected conditions (not mental disorders or infectious disease) (20 sources) Pulmonary function studies abnormal; Translations: [Nonspecific abnormal results of pulmonary function study] Onset: 3 02-26-2024 Episodic Residual codes; unclassified (2 sources) Gestation period, 14 weeks; Translations: [14 weeks gestation of ] 07-03-2024 Episodic Residual codes; unclassified (3 sources) Gestation period, 20 weeks; Translations: [20 weeks gestation of ] 08-15-2024 Episodic Residual codes; unclassified (1 source) 20 weeks gestation of ; Translations: [20 weeks gestation of ] Onset: Episodic Superficial injury; contusion (7 sources) Contusion of elbow; Translations: [Contusion of unspecified elbow, initial encounter] 09-20-2019 Episodic Unclassified (1 source) Di Di Twins Onset: 4 Past or Other Problems Problem Classification Problem Date Documented Da te Episodic/Chronic Cardiac dysrhythmias (20 sources) Palpitations; Translations: [Palpitations] Onset: 08-13-2023 06-16-2023 Episodic Immunizations and screening for infectious disease (12 sources) Patient encounter status; Translations: [Encounter for immunization] Onset: 07-05-2023 03-25-2024 Episodic Joint disorders and dislocations; trauma-related (11 sources) Tear of medial meniscus of knee; Translations: [Other tear of medial meniscus, current injury, unspecified knee, initial encounter] Onset: 02-26-2024 07-26-2021 Episodic Nonspecific chest pain (20 sources) Atypical chest pain; Translations: [Other chest pain] Onset: 08-13-2023 06-16-2023 Episodic Other bone disease and musculoskeletal deformities (9 sources) Chondromalacia; Translations: [Chondromalacia, unspecified site] Onset: 02-26-2024 02-26-2024 Episodic Other connective tissue disease (9 sources) Pain in right thumb; Translations: [Pain in right finger(s)] Onset: 02-26-2024 02-26-2024 Episodic Other connective tissue disease (9 sources) Radial styloid tenosynovitis; Translations: [Radial styloid [...] Spondylosis; intervertebral disc disorders; other back problems (9 sources) Sciatica; Translations: [Sciatica, unspecified side] Onset: [...] NEGATED: Highlighted row has been ruled out!Unclassified (3 sources) No known active problems 02-19-2018 Results Test Name Value Interpretation Reference Range Facility IGP,APTIMA HPV,AGE GDLNon AGE GDLN ACOG TESTING Note . [facility] Comment on above: TESTS RESULT FLAG UN ITS REF RANGE LAB Clinician Provided Cytology Information Source.............Cervix No. of containers..01 ThinPrep Vial Age Algo ACOG Maureen... FLAG LEGEND: L-Low Normal,H-High Normal,LL-Alert Low,HH-Alert High <-Panic Low,>-Panic High,A-Abnormal,AA-Critical Abnormal Performed at: 01 =[facility] [address] Toya Wilson MD, IGP, RFX APTIMA HPV ASCU Note . [facility] Comment on above: TESTS RESULT FLAG UN ITS REF RANGE LAB DIAGNOSIS: 02 NEGATIVE FOR INTRAEPITHELIAL LESION OR MALIGNANCY. Specimen adequacy: 02 Satisfactory for evaluation. No endocervical component is identified. Performed by: 02 Imelda Miranda Pile Driver Engineer ([facility]) . 02 Note: Note 02 The Pap smear is a screening test designed to aid in the detection of premalignant and malignant conditions of the uterine cervix. It is not a diagnostic procedure and should not be used as the sole means of detecting cervical cancer. Both false-positive and false-negative reports do occur. Test Methodology: Note 02 This liquid based ThinPrep(R) pap test was screened with the use of an image guided system. . 02 The HPV DNA reflex criteria were not met with this specimen result therefore, no HPV testing was performed. FLAG LEGEND: L-Low Normal,H-High Normal,LL-Alert Low,HH-Alert High <-Panic Low,>-Panic High,A-Abnormal,AA-Critical Abnormal Performed at: [address] [address] Toya Wilson MD, Performed at: =[address] [id number] Funeral Car Driver: Toya Wilson MD, Phone: [phone] Performed at: [address] [id number] Funeral Car Driver: Toya Wilson MD, Phone: [phone] SPATULA-ALONE CERVIX [facility] AFP, SERUM, OPEN SPINA BIFID Aon 08-13-2024 AFP MOM 2.24 . [facility] AFP VALUE 103.1 ng/mL . [facility] COMMENT: Comment . [facility] Comment on above: Joyce Reina , Ph.D., [facility] Director References: Available Upon Request. Multiples Of Median Cutoffs For AFP Elevations Harrington 2.5 Black 2.8 IDD 2.0 Twins 4.5 Abbreviation Definitions IDD - Insulin Dep Diabetes OSBR - Open Spina Bifida Risk For further inquiries contact [facility] at [phone]. This test was developed and its performance characteristics determined by [facility]. It has not been cleared or approved by the Food and Drug Administration. Performed at: [facility] [address] [place], [place] [id number] Funeral Car Driver: Angel Regan [facility], Phone: [phone] GEST. AGE ON COLLECTION DATE 20.3 . weeks [facility] GESTAT. AGE BASED ON LMP . [facility] Comment on above: Recalculations are n ot recommended when gestational dating by LMP and ultrasound are within 10 days. INSULIN DEP DIABETES No . [facility] INTERPRETATION Comment . [facility] Comment on above: Interpretation: Scre en Negative This result is screen negative for OSB. The AFP MoM is calc-ulated based on the gestational age provided. Screening efficiency is diminished in twin pregnancies. MS- AFP detects approximately 48% of open neural tube defects. Closed neural tube defects and some open defects may not be detected by this test. This test does not screen for Down Syndrome or Trisomy 18. If screening for Down syndrome or Trisomy 18 is desired, contact [facility] Customer Services to discuss available options. The [employer] recommends amniocentesis be offered to women age 35 and older. [age]LE [age] [facility] MULTIPLE GESTATION Twins . [facility] OSBR RISK 1 IN 1081 . [facility] RACE . [facility] RESULTS Report . [facility] TEST RESULTS: Negative . [facility] WEIGHT 219 . lbs [facility] N N LMP [id number] 3 19 N 2 Y 219 N N N N N White/ [facility] US for pregnancyon 4 [facility] Coding ====== Procedures 98560: Comprehensive Detailed Anatomy Ultrasound 77352: Comprehensive Detailed Anatomy Ultrasound- Additional Fetus 19686: Transvaginal Ultrasound (OB) Indication ======== Di-Di twin , Screening for Anatomic Survey, Screening for cervical length, Asthma in , Supervision of high risk , Obesity in History ====== OB History 1 Maternal Assessment Physical Exam Height 165 cm, 5 ft 5 in. Weight 100 kg, 221 lb. BMI 36.78 kg/m??? Method ====== Transabdominal and transvaginal ultrasound examination. View: Suboptimal view: limited by position. Suboptimal view: limited by maternal body habitus ========= Twin . Number of fetuses: 2. Dichorionic-diamniotic Dating ====== Date Details Gest. age GUILLE LMP 03/22/2024 20 w + 4 d 12/27/2024 Previous U/S 05/23/2024 GA, GA 8 w + 6 d 20 w + 4 d 12/27/2024 U/S Fetus A 08/13/2024 based upon AC, BPD, Femur, HC 20 w + 5 d 12/26/2024 U/S Fetus B based upon AC, BPD, Femur, HC 20 w + 5 d 12/26/2024 Assigned dating based on the LMP, selected on 08/13/2024 20 w + 4 d 12/27/2024 Fetus A: General Evaluation Cardiac activity Present. FHR 159 bpm. movements: visualized. Presentation: breech, lower left fetus Placenta: Placental site: anterior, away from cervical os Umbilical cord: Cord vessels: 3 vessel cord. Insertion site: normal insertion Amniotic fluid: Amount of AF: normal amount Fetus B: General Evaluation Cardiac activity Present. FHR 150 bpm. movements: visualized. Presentation: cephalic, upper right fetus Placenta: Placental site: posterior, away from cervical os Umbilical cord: Cord vessels: 3 vessel cord. Insertion site: normal insertion Amniotic fluid: Amount of AF: normal amount Fetus A: Biometry BPD 50.0 mm 21w 1d 72% Hadlock OFD 61.8 mm 21w 1d 72% Charles HC 179.4 mm 20w 3d 33% Hadlock Cerebellum tr 21.0 mm 20w 3d 48% Fournier Nuchal fold 3.7 mm AC 161.2 mm 21w 1d 65% Hadlock Femur 31.7 mm 19w 6d 19% Hadlock Humerus 31.6 mm 20w 4d 48% Charles HC / AC 1.11 19% Hadlock Weight Calculation: EFW 364 g 45% Hadlock EFW (lb,oz) 0 lb 13 oz EFW by Hadlock ([id number]) EFW discordance 10.9 % Head / Face / Neck Biometry: Cephalic index 0.81 73% Nicolaides Intelligence Engineer 6.4 mm CM 4.4 mm 26% Nicolaides Nasal bone 7.2 mm Extremities / Bony Struc Biometry: FL / BPD 0.63 2% Hadlock FL / HC 0.18 17% Hadlock FL / AC 0.20 3% Hadlock Tibia 28.2 mm 20w 2d 42% Charles Fetus B: Biometry BPD 46.3 mm 20w 0d 26% Hadlock OFD 65.1 mm 22w 0d 91% Charles HC 178.3 mm 20w 2d 29% Hadlock Cerebellum tr 19.7 mm 19w 4d 20% Fournier Nuchal fold 4.8 mm AC 167.4 mm 21w 5d 80% Hadlock Femur 34.8 mm 21w 0d 56% Hadlock Humerus 32.7 mm 21w 0d 66% Charles HC / AC 1.07 6% Hadlock Weight Calculation: EFW 409 g 79% Hadlock EFW (lb,oz) 0 lb 14 oz EFW by Hadlock ([id number]) EFW discordance 10.9 % Head / Face / Neck Biometry: Cephalic index 0.71 1% Nicolaides Intelligence Engineer 6.8 mm CM 4.3 mm 23% Nicolaides Nasal bone 7.9 mm Extremities / Bony Struc Biometry: FL / BPD 0.75 83% Hadlock FL / HC 0.20 85% Hadlock FL / AC 0.21 17% Hadlock Tibia 28.1 mm 20w 1d 40% Charles Fetus A: Anatomy The following structures appear normal: Head / Neck Cranium. Lateral ventricles. Choroid plexus. Midline falx. Cavum septi pellucidi. Cerebellum. Cisterna magna. Parenchyma. Neck. Face Nasal bone. Maxilla. Orbits. Heart / Th (more content not included)... [facility] Radiology, Radiologi MD billy - 08/13/2024 THIS EXAM [facility] PERFOR[facility] Coding ====== Procedures 62328: Comprehensive Detailed Anatomy Ultrasound 01713: Comprehensive Detailed Anatomy Ultrasound- Additional Fetus 73129: Transvaginal Ultrasound (OB) Indication ======== Di-Di twin , Screening for Anatomic Survey, Screening for cervical length, Asthma in , Supervision of high risk , Obesity in History ====== OB History 1 Maternal Assessment Physical Exam Height 165 cm, 5 ft 5 in. Weight 100 kg, 221 lb. BMI 36.78 kg/m??? Method ====== Transabdominal and transvaginal ultrasound examination. View: Suboptimal view: limited by position. Suboptimal view: limited by maternal body habitus ========= Twin . Number of fetuses: 2. Dichorionic-diamniotic Dating ====== Date Details Gest. age GUILLE LMP 03/22/2024 20 w + 4 d 12/27/2024 Previous U/S 05/23/2024 GA, GA 8 w + 6 d 20 w + 4 d 12/27/2024 U/S Fetus A 08/13/2024 based upon AC, BPD, Femur, HC 20 w + 5 d 12/26/2024 U/S Fetus B based upon AC, BPD, Femur, HC 20 w + 5 d 12/26/2024 Assigned dating based on the LMP, selected on 08/13/2024 20 w + 4 d 12/27/2024 Fetus A: General Evaluation Cardiac activity Present. FHR 159 bpm. movements: visualized. Presentation: breech, lower left fetus Placenta: Placental site: anterior, away from cervical os Umbilical cord: Cord vessels: 3 vessel cord. Insertion site: normal insertion Amniotic fluid: Amount of AF: normal amount Fetus B: General Evaluation Cardiac activity Present. FHR 150 bpm. movements: visualized. Presentation: cephalic, upper right fetus Placenta: Placental site: posterior, away from cervical os Umbilical cord: Cord vessels: 3 vessel cord. Insertion site: normal insertion Amniotic fluid: Amount of AF: normal amount Fetus A: Biometry BPD 50.0 mm 21w 1d 72% Hadlock OFD 61.8 mm 21w 1d 72% Charles HC 179.4 mm 20w 3d 33% Hadlock Cerebellum tr 21.0 mm 20w 3d 48% Fournier Nuchal fold 3.7 mm AC 161.2 mm 21w 1d 65% Hadlock Femur 31.7 mm 19w 6d 19% Hadlock Humerus 31.6 mm 20w 4d 48% Charles HC / AC 1.11 19% Hadlock Weight Calculation: EFW 364 g 45% Hadlock EFW (lb,oz) 0 lb 13 oz EFW by Hadlock (PNI-IN-IN-FL) EFW discordance 10.9 % Head / Face / Neck Biometry: Cephalic index 0.81 73% Nicolaides Intelligence Engineer 6.4 mm CM 4.4 mm 26% Nicolaides Nasal bone 7.2 mm Extremities / Bony Struc Biometry: FL / BPD 0.63 2% Hadlock FL / HC 0.18 17% Hadlock FL / AC 0.20 3% Hadlock Tibia 28.2 mm 20w 2d 42% Charles Fetus B: Biometry BPD 46.3 mm 20w 0d 26% Hadlock OFD 65.1 mm 22w 0d 91% Charles HC 178.3 mm 20w 2d 29% Hadlock Cerebellum tr 19.7 mm 19w 4d 20% Fournier Nuchal fold 4.8 mm AC 167.4 mm 21w 5d 80% Hadlock Femur 34.8 mm 21w 0d 56% Hadlock Humerus 32.7 mm 21w 0d 66% Charles HC / AC 1.07 6% Hadlock Weight Calculation: EFW 409 g 79% Hadlock EFW (lb,oz) 0 lb 14 oz EFW by Hadlock (IJT-DK-HO-FL) EFW discordance 10.9 % Head / Face / Neck Biometry: Cephalic index 0.71 1% Nicolaides Intelligence Engineer 6.8 mm CM 4.3 mm 23% Nicolaides Nasal bone 7.9 mm Extremities / Bony Struc Biometry: FL / BPD 0.75 83% Hadlock FL / HC 0.20 85% Hadlock FL / AC 0.21 17% Hadlock Tibia 28.1 mm 20w 1d 40% Charles Fetus A: Anatomy The following structures appear normal: Head / Neck Cranium. Lateral ventricles. Choroid plexus. Midline falx. Cavum septi pellucidi. Cerebellum. Cisterna magna. Parenchyma. Neck. Face Nasal bone. Maxilla. Orbits. Heart / Thorax Situs. Aortic arch view. Cardiac position. Cardiac axis. Cardiac size. Cardiac rhythm. Right lung. Left lung. Abdomen Abdom. wall. Cord insertion. Stomach. Kidneys. Bladder. Small bowel. Large bowel. Genitals. Spine Cervical spine. Thoracic spine. Lumbar spine. Sacral spine. Extremities / Skeleton Right upper arm. Left upper arm. Left forearm. Right upper leg. Right lower leg. Right foot. Left upper leg. Left lower leg. Left foot. The following structures could not be adequately visualized: Head / Neck Nuchal fold. Face Profile. Nose. Palate. Heart / Thorax 4-chamber view. 3-vessel view. 9-rzboxb-siwaxvt view. Interventricular septum. Diaphragm. Abdomen Right renal artery. Left renal artery. Extremities / Skeleton Right forearm. Left hand. The following structures could not be examined: Head / Neck Vermis. Face Lips. Mandible. Heart / Thorax RVOT view. LVOT view. Bicaval view. Ductal arch view. Great vessels. Extremities / Skeleton Right hand. Fetus B: Anatomy The following structures appear normal: Head / Neck Cranium. Lateral ventricles. Midline falx. Cavum septi pellucidi. Cerebellum. Cisterna magna. Parenchyma. Neck. Nuchal fold. F (more content not included)... [facility] Radiology Study observation (narrative) [facility] US for pregnancyOrdered By: Radiologist Radiology on 08-13-2024 [facility] Work Phone: RECURRENT VAGINITIS (HTRX)on 08-07-2024 ATOPOBIUM VAGINAE 29.356 Abnormal [facility] ATOPOBIUM VAGINAE Detected Abnormal [facility] BVAB 2,3 (BACTERIAL VAGINOSIS ASSOCIATED BACTERIA 2, 3); MOBILUNCUS SPP 0 [facility] BVAB 2,3 (BACTERIAL VAGINOSIS ASSOCIATED BACTERIA 2, 3); MOBILUNCUS SPP Not detected [facility] SANTHOSH ALBICANS, PARAPSILOSIS, TROPICALIS 0 [facility] SANTHOSH ALBICANS, PARAPSILOSIS, TROPICALIS Not detected [facility] SANTHOSH GLABRATA 0 [facility] SANTHOSH GLABRATA Not detected [facility] SANTHOSH KRUSEI 0 [facility] SANTHOSH KRUSEI Not detected [facility] CHLAMYDIA TRACHOMATIS 0 [facility] CHLAMYDIA TRACHOMATIS Not detected N [facility] GARDNERELLA VAGINALIS 0 [facility] GARDNERELLA VAGINALIS Not detected N [facility] Interpretation and review of laboratory results Abnormal [facility] MEGASPHAERA (TYPES 1, 2) 0 [facility] MEGASPHAERA (TYPES 1, 2) Not detected [facility] MYCOPLASMA GENITALIUM 0 [facility] MYCOPLASMA GENITALIUM Not detected N [facility] NEISSERIA GONORRHOEAE 0 [facility] NEISSERIA GONORRHOEAE Not detected N [facility] TRICHOMONAS VAGINALIS 0 [facility] TRICHOMONAS VAGINALIS Not detected N [facility] [place] Urinalysis macro (dipstick) panel (U)on 08-05-2024 Bilirubin, UA Negative Negative - 4(70) +++ mg/dL [facility] Blood, UA Negative Negative - 50 Vasu/mcL [facility] Clarity, UA Clear [facility] Color, UA Yellow [facility] Glucose, UA Negative Negative - 1999(110) ++++ mg/dL [facility] Interpretation and review of laboratory results Normal [facility] Ketones, UA Negative Negative - 160(16) ++++ mg/dL [facility] Leukocytes, UA Negative Negative - 500+++ Conrad/mcL [facility] Nitrite, UA Negative Negative - Positive [facility] pH, UA 5.5 5 - 9 [facility] Protein, UA Negative Negative - 1999(20) ++++ mg/dL [facility] Spec Grav, UA 1.02 1 - 1.03 [facility] Urobilinogen, UA 1.0 0.2 - 12 mg/dL [facility] Urinalysis macro (dipstick) panel (U)on 07-03-2024 Bilirubin, UA Negative Negative - 4(70) +++ mg/dL [facility] Blood, UA Negative Negative - 50 Vasu/mcL [facility] Clarity, UA Clear [facility] Color, UA Yellow [facility] Glucose, UA Positive Negative - 1999(110) ++++ mg/dL [facility] Comment on above: 500 Interpretation and review of laboratory results Abnormal [facility] Ketones, UA Negative Negative - 160(16) ++++ mg/dL [facility] Leukocytes, UA Negative Negative - 500+++ Conrad/mcL [facility] Nitrite, UA Negative Negative - Positive [facility] pH, UA 6.0 5 - 9 [facility] Protein, UA Negative Negative - 1999(20) ++++ mg/dL [facility] Spec Grav, UA 1.015 1 - 1.03 [facility] Urobilinogen, UA 0.2 0.2 - 12 mg/dL [facility] CBC without diffon Hematocrit (Bld) [Volume fraction] 38.7 % [facility] Hemoglobin (Bld) [Mass/Vol] 13.5 g/dL [facility] CHEMISTRYOrdered By: SYSTEM SYSTEM on 04-12-2024 Progesterone [...] Progesterone Lvl 31.70 ng/mL Invalid Interpretation Code [facility] Comment on above: Result Comment: 'F N ON FOLLICULAR = 0.10 - 0.60' 'LUTEAL = 3.00 - 17.5' 'MIDLUTEAL = 3.30 - 18.6' 'POST-MENOPAUSE = 0.10 - 0.40' '-FIRST TRIMESTER = 8.30 - 66.5' 'SECOND TRIMESTER = 18.9 - 66.1' 'THIRD TRIMESTER = 35.8 - 312.4' 'MALES = 0.14 - 2.06' Performed By: #### 2 [id number] #### [facility] [address] [place] [id number] CHEMISTRYOrdered By: Glythera on 03-14-2024 Progesterone Lvl 16.15 ng/mL Invalid [...] Consent for Treatmenton 02-23 Consent for Treatment [id number]#[id number] Normal [facility] Physician Orderon 03-14-2024 Physician Order [id number]#[id number] Normal [facility] Progesteroneon 03-14-2024 Progesterone Lvl 16.15 ng/mL Invalid Interpretation Code [facility] Comment on above: Result Comment: 'F N ON FOLLICULAR = 0.10 - 0.60' 'LUTEAL = 3.00 - 17.5' 'MIDLUTEAL = 3.30 - 18.6' 'POST-MENOPAUSE = 0.10 - 0.40' '-FIRST TRIMESTER = 8.30 - 66.5' 'SECOND TRIMESTER = 18.9 - 66.1' 'THIRD TRIMESTER = 35.8 - 312.4' 'MALES = 0.14 - 2.06' Performed By: #### 2 [id number] #### [facility] [address] [place] [address] Ambulatory Visit Summaryon 0 12-11-2023 Ambulatory Visit [...] 11:20 AM EDT With: Krista Daley Where: [facility] Medicine Neena Normal [facility] Medicine Office/Clini c Noteon 12-11-2023 Family Medicine Office/Clinic Note HPI Staff Madyson is a 23 year old female presenting to establish care Establish Care: History: Any previous diagnosis: POTS (11/30/23) History of seeing any specialist: Jyoti Dickey [facility] 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 Class 1 obesity due to excess calories in adult (E66.09: Other obesity due to excess calories) see above Ordered: omeprazole, 40 mg = 1 cap(s), Oral, Daily, # 30 cap(s), Refills(s) 1, Pharmacy: [facility], 168.3, cm, 12/11/23 13:07:00 EDT, Height/Length Dosing, 93.6, kg, 12/11/23 13:07:00 EDT, Weight Dosing 4. Nonsmoker (Z78.9: Other specified health status) continue not smoking Ordered: omeprazole, 40 mg = 1 cap(s), Oral, Daily, # 30 cap(s), Refills(s) 1, Pharmacy: [facility], 168.3, cm, 12/11/23 13:07:00 EDT, Height/Length [...] 03/05/2002 Recorded (more content not included)... Normal [facility] Comment on above: Result Comment: Elec tronically Signed By: Krista Daley.braxton\Date and Time Signed: 12/11/23 13:32 EDT CNOVon 11-30-2023 CNOV Office Visit (NENMMN ) ----- MADYSON MAI ([id number]) 2 F Date Time Provider Department 11/30/23 10:00 AM JYOTI DICKEY NENMMN During your visit today, we recorded the following information about you: Pulse Blood pressure Weight Height 84/minute 118/79 93 kg 1.651 m Jyoti Dickey PA-C 11/30/2023 11:14 AM Signed [facility] New Patient Evaluation Madyson [...] Patient presents today for evaluation of POTS. Dallin 2020 had knee surgery and then passed [...] experienced LOC while walking up the stairs. [place] prodromal symptoms including lightheadedness and tunnel vision. [...] Urination: + (more content not included)... Normal [facility] ECHOon 11-12-2023 Echocardiography Echocardiography Rep ort: Transthoracic Echo [facility] A17 Date of service: 11/12/2023 1:08:10 PM ENFORCEMENT AGENT Ordering physician: AURORA SANTIAGO Indication: Initial evaluation [...] * * Final * * * CC [employer] [facility] : [id number] Normal [facility] CNOVon 10-10-2023 CNOV Office Visit (NEADMN ) ----- MADYSON MAI ([id number]) 2 F Date Time Provider Department 10/10/23 2:00 PM AURORA SANTIAGO NEADMCarlota During your visit today, we recorded the following information about you: Pulse Blood pressure Weight Height 108/minute 119/85 93 kg 1.651 m Aurora Santiago PA-C 10/10/2023 4:33 PM Signed [facility] New Patient Evaluation CHIEF COMPLAINT: to rule out autonomic disorder Madyson Schmid is a 22 year old female with history of Orthostatic intolerance, right knee patellofemoral pain, obesity. She is accompanied by -bambi and mother in law-Fiif. Self referred HPI: As per chart review: [...] on BC (more content not included)... Normal [facility] Quantiferon-TB Plus (Client Incubated)on 07-26-2023 Gamma interferon background IA Qn (Bld) 0.01 International_Unit/mL Invalid Interpretation Code [facility] Comment on above: Performed By: #### 1 [id number], [id number] #### [facility] [address] [place] [address] M. tuberculosis stim IFN-g by CD4+ CD8+ T-cells Qn (Bld) 0.30 International_Unit/mL Invalid Interpretation Code [facility] Comment on above: Performed By: #### 1 [id number], [id number] #### [facility] [address] [place] [address] M. tuberculosis stim IFN-g by CD4+ T-cells Qn (Bld) 0.23 International_Unit/mL Invalid Interpretation Code [facility] Comment on above: Performed By: #### 1 [id number], [id number], [id number] #### [facility] [address] [place] [address] M. tuberculosis stim IFN-g Ql (Bld) [Interp] Negative Invalid Interpretation Code Negative [facility] Comment on above: Result Comment: [...] interferon gamma. Chemiluminescence immunoassay methodology Performed at: [facility] [id number] PhD Rubio Vinson Performed By: #### 1 [id number], [id number], [id number] #### [facility] [address] [place] [address] Mitogen stimulated gamma interferon Qn (Bld) >10.00 Invalid Interpretation Code [facility] Comment on above: Performed By: #### 1 [id number], [id number], [id number], [id number] #### [facility] [address] [place] [address] Service comment (Unsp spec) [Interp] Comment Invalid Interpretation Code [facility] Comment on above: Result Comment: [...] for the test. Performed By: #### 1 [id number], [id number], [id number], [id number] #### [facility] [address] [place] [address] Hep Bs Abon 07-25-2023 HBV surface Ab Ql (S) Non-Reactive Invalid Interpretation Code [facility] Comment on above: Result Comment: Non Reactive: Inconsistent with immunity, less than 10 mIU/mL Reactive: Consistent with immunity, greater than 9.9 mIU/mL Performed at: [facility] [id number] PhD Rubio Vinson Performed By: #### 1 [id number], [id number], [id number], [id number] #### [facility] [address] [place] [address] Measles/Mumps/Rubella Immuni tyon 07-25-2023 MeV IgG IA Qn (S) 34.3 A unit/mL Invalid Interpretation Code Immune >16.4 [facility] Comment on above: Result Comment: Nega tive <13.5 Equivocal 13.5 - 16.4 Positive >16.4 Presence of antibodies to Rubeola is presumptive evidence of immunity except when acute infection is suspected. Performed By: #### 1 [id number], [id number], [id number], [id number] #### [facility] [address] [place] [address] MuV IgG IA Qn (S) <9.0 Low Immune >10.9 [facility] Comment on above: Result Comment: Nega tive <9.0 Equivocal 9.0 - 10.9 Positive >10.9 A positive result generally indicates past exposure to Mumps virus or previous vaccination. Performed at: [facility] [id number] PhD Rubio Vinson Performed By: #### 1 [id number], [id number], [id number] #### [facility] [address] [place] [address] Rubella virus IgG Qn (S) 1.53 [IU]/mL Invalid Interpretation Code Immune >0.99 [facility] Comment on above: Result Comment: Non- immune <0.90 Equivocal 0.90 - 0.99 Immune >0.99 Performed By: #### 1 [id number], [id number], [id number], [id number] #### [facility] [address] [place] [address] Varic IgGon 07-25-2023 VZV IgG IA Qn (S) 475 Invalid Interpretation Code Immune >165 [facility] Comment on above: Result Comment: Nega tive <135 Equivocal 135 - 165 Positive >165 A positive result generally indicates exposure to the pathogen or administration of specific immunoglobulins, but it is not indication of active infection or stage of disease. Performed at: [facility] [id number] PhD Rubio Vinson Performed By: #### 1 [id number], [id number], [id number], [id number] #### [facility] [address] [place] [address] CNOVon 07-10-2023 CNOV Office Visit (ORFWHP ) ----- MADYSON SCHMID ([id number]) 2 F Date Time Provider Department 07/10/23 9:40 AM JOSE ARMANDO GREY ORFWHP During your visit today, we recorded the following information about you: Jose Armando Grey DO 07/10/2023 10:08 AM Signed [facility] Office Visit Documentation Note [facility] Sports Medicine Orthopaedic and Rheumatologic [place] HISTORY OF PRESENT ILLNESS (HPI) CHIEF COMPLAINT / REASON FOR VISIT SERVICE DATE: July 10, 2023 PCP: No primary care provider on file. Madyson Schmid is here today at request of Dr. Jose Armando Schmid specifically for consultation of my opinion in regards to the chief complaint listed below. Correspondence will be shared today via the [employer] electronic health record or through regular mail, [...] expectations. 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 Reaction knee brace Consider [place] toradol, did discuss orthobiologics Follow up: Films prior to visit: Written instructions (see patient instructions) and verbal health education given to patient. Patient verbalizes understanding and agrees with the treatment plan. Jose Armando Grey D.O. [facility] Orthopaedic and Rheumatologic Housekeeping Director, [place] [facility] AND T.E.A.M. Program Team Physician, [facility] Baseball Club Consulting Physician, [place] Martin Nagel, Glass Bulb Machine Adjuster [phone] Referring Provider: SELF [200] Allergies As of [...] Level of (more content not included)... Normal [facility] HEART MERRILLon 07-10 [facility] Tobacco Screening.on 023 Adult depression screening assessment No [facility] [address] DO Work Phone: Tobacco use status CPHS b) No [facility] [address] DO Work Phone: Activated partial thrombopla stin time (aPTT) in platelet poor plasma by coagulation aOrdered By: Haris Martino on 06-08-2023 aPTT Coag (PPP) [Time] 28.9 s 25.1-36.5 [facility] Comment on above: A hematocrit value g reater than 55% may lead to inaccurate results in coagulation testing. Patients having hematocrit values >55% require a special collection tube for coagulation studies. Please contact the laboratory at [phone] for redraw instructions. Alanine aminotransferase [En zymatic activity/volume] in Serum or PlasmaOrdered By: Haris Martino on 06-08-2023 ALT [Catalytic activity/Vol] 42 U/L 7-52 [facility] Albumin [Mass/volume] in Ser um or Plasma by Bromocresol green (BCG) dye binding methoOrdered By: Haris Martino on 06-08-2023 Albumin BCG dye [Mass/Vol] 4.6 g/dL 3.5-5.7 [facility] Alkaline phosphatase [Enzyma tic activity/volume] in Serum or PlasmaOrdered By: Haris Martino on 06-08-2023 ALP [Catalytic activity/Vol] 78 U/L 34-104 [facility] Aspartate aminotransferase [ Enzymatic activity/volume] in Serum or PlasmaOrdered By: Haris Martino on 06-08-2023 AST [Catalytic activity/Vol] 22 U/L 13-39 [facility] Automated erythrocytes count in urine sediment (number/area)Ordered By: Haris Martino on 06-08-2023 RBC Auto (Urine sed) [#/Area] 5-9 [HPF] 0-4 [facility] Automated leukocytes count i n urine sediment (number/area)Ordered By: Haris Martino on 06-08-2023 WBC Auto (Urine sed) [#/Area] 3-4 [HPF] 0-4 [facility] Basophils Auto (Bld) [#/Vol] Ordered By: Haris Martino on 06-08-2023 Basophils (Bld) [#/Vol] 0.1 10*3/uL 0.0-0.2 [facility] Basophils/100 WBC Auto (Bld) Ordered By: Haris Martino on 06-08-2023 Basophils/100 WBC (Bld) 1.0 % . [facility] Bilirubin Test strip Ql (U)O rdered By: Haris Martino on 06-08-2023 Bilirubin Ql (U) Negative Negative [facility] Bilirubin.direct [Mass/volum e] in Serum or PlasmaOrdered By: Haris Martino on 06-08-2023 Bilirubin.direct [Mass/Vol] 0.10 mg/dL 0.03-0.18 [facility] Bilirubin.total [Mass/volume ] in Serum or PlasmaOrdered By: Haris Martino on 06-08-2023 Bilirubin [Mass/Vol] 0.4 mg/dL 0.3-1.0 [facility] Calcium [Mass/volume] in Ser um or PlasmaOrdered By: Haris Martino on 06-08-2023 Calcium [Mass/Vol] 9.4 mg/dL 8.6-10.3 [facility] Carbon dioxide, total [Moles /volume] in Serum or PlasmaOrdered By: Haris Martino on 06-08-2023 CO2 [Moles/Vol] 29.3 mmol/L 21.0-31.0 [facility] Chloride [Moles/volume] in S colin or PlasmaOrdered By: Haris Martino on 06-08-2023 Chloride [Moles/Vol] 104 mmol/L 98-107 [facility] Color Auto (U)Ordered By: Terrell red Salena on 06-08-2023 Color (U) Yellow Yellow [facility] Creatine kinase [Enzymatic a ctivity/volume] in Serum or PlasmaOrdered By: Haris Martino on 06-08-2023 CK [Catalytic activity/Vol] 55 U/L 30-223 [facility] Creatinine [Mass/volume] in Serum or PlasmaOrdered By: Haris Martino on 06-08-2023 Creatinine [Mass/Vol] 0.64 mg/dL 0.60-1.20 [facility] Eosinophils Auto (Bld) [#/Vo l]Ordered By: Haris Martino on 06-08-2023 Eosinophils (Bld) [#/Vol] 0.1 10*3/uL 0.0-0.45 [facility] Eosinophils/100 WBC Auto (Bl d)Ordered By: Haris Martino on 06-08-2023 Eosinophils/100 WBC (Bld) 0.8 % . [facility] Erythrocyte distribution wid th Auto (RBC) [Ratio]Ordered By: Haris Martino on 06-08-2023 Erythrocyte distribution width (RBC) [Ratio] 12.9 % 11.9-15.3 [facility] Fibrin D-dimer [Presence] in Platelet poor plasma by Latex agglutinationOrdered By: Haris Martino on 06-08-2023 Fibrin D-dimer LA Ql (PPP) < 200 ng/mL 0-243 [facility] Comment on above: The reference [...] coagulation studies. Please contact the laboratory at [phone] for redraw instructions. Globulin Calc (S) [Mass/Vol] Ordered By: Haris Martino on 06-08-2023 Globulin (S) [Mass/Vol] 2.9 g/dL [facility] Glucose [Mass/volume] in Ser um or PlasmaOrdered By: Haris Martino on 06-08-2023 Glucose [Mass/Vol] 79 mg/dL 70-100 [facility] Comment on above: ADA recommended refe rence rangeRandom Glucose Reference Range is dependent on time and content of last meal. Glucose of more than 200 mg/dL in a nonstressed, ambulatory subject supports the diagnosis of Diabetes Mellitus. HCG ( test) IA.rapi d Ql (U)Ordered By: Haris Martino on 06-08-2023 HCG ( test) Ql (U) Negative [facility] Hematocrit Auto (Bld) [Volum e fraction]Ordered By: Haris Martino on 06-08-2023 Hematocrit (Bld) [Volume fraction] 42.4 % 34.0-46.4 [facility] Hemoglobin [Mass/volume] in BloodOrdered By: Haris Martino 06-08-2023 Hemoglobin (Bld) [Mass/Vol] 14.5 g/dL 11.8-15.4 [facility] INR in Platelet poor plasma by Coagulation assayOrdered By: Haris Martino on 06-08-2023 INR Coag (PPP) [Relative time] 1.0 {INR} [facility] Comment on above: INR Therapeutic [...] on 06-08-2023 Ketones (U) [Mass/Vol] Negative Negative Fi [facility] - UrinalysisOrder ed By: Haris Martino on 06-08-2023 Hyaline casts LM Ql (Urine sed) 0-8 [LPF] 0-8 [facility] Leukocytes [#/volume] correc matt for nucleated erythrocytes in Blood by Automated counOrdered By: Haris Martino on 06-08-2023 WBC corrected for nucl RBC Auto (Bld) [#/Vol] 8.3 10*3/uL 3.8-11.6 [facility] Lymphocytes Auto (Bld) [#/Vo l]Ordered By: Haris Martino on 06-08-2023 Lymphocytes (Bld) [#/Vol] 3.0 10*3/uL 1.00-4.8 [facility] Lymphocytes/100 WBC Auto (Bl d)Ordered By: Haris Martino on 06-08-2023 Lymphocytes/100 WBC (Bld) 36.0 % . [facility] MCH Auto (RBC) [Entitic mass ]Ordered By: Haris Martino on 06-08-2023 MCH (RBC) [Entitic mass] 29.4 pg 24.7-34.3 [facility] MCHC Auto (RBC) [Mass/Vol]Or dered By: Haris Martino on 06-08-2023 MCHC (RBC) [Mass/Vol] 34.2 g/dL 32.0-35.0 [facility] MCV Auto (RBC) [Entitic vol] Ordered By: Haris Martino on 06-08-2023 MCV (RBC) [Entitic vol] 85.9 fL 80-100 [facility] Monocyte distribution width [Entitic volume] in Blood by AutomatedOrdered By: Haris Martino on 06-08-2023 Monocyte distribution width Auto (Bld) [Entitic vol] 18.39 % 0.00-20.00 [facility] Monocytes Auto (Bld) [#/Vol] Ordered By: Haris Martino on 06-08-2023 Monocytes (Bld) [#/Vol] 0.5 10*3/uL 0.0-0.8 [facility] Monocytes/100 WBC Auto (Bld) Ordered By: Haris Martino on 06-08-2023 Monocytes/100 WBC (Bld) 6.6 % . [facility] Natriuretic peptide B [Mass/ Vol]Ordered By: Haris Martino on 06-08-2023 Natriuretic peptide B (Bld) [Mass/Vol] 9.0 pg/mL 5-100 [facility] Neutrophils Auto (Bld) [#/Vo l]Ordered By: Haris Martino on 06-08-2023 Neutrophils (Bld) [#/Vol] 4.6 10*3/uL 1.8-7.7 [facility] Neutrophils/100 WBC Auto (Bl d)Ordered By: Haris Martino on 06-08-2023 Neutrophils/100 WBC (Bld) 55.6 % . [facility] Nitrite Test strip Ql (U)Ord ered By: Haris Martino on 06-08-2023 Nitrite Ql (U) Negative Negative [facility] No Panel InformationOrdered By: Haris Martino on 06-08-2023 Estimated GFR (CKD-EPI) > 60.0 mL/Min [facility] Creatinine Clearance (Chem 155.50 [facility] Nucleated erythrocytes [Pres ence] in Blood by Automated countOrdered By: Haris Martino on 06-08-2023 Nucleated RBC Auto Ql (Bld) 0.1 /100{WBC} 0-0.5 [facility] Platelet mean volume Auto (B ld) [Entitic vol]Ordered By: Haris Martino on 06-08-2023 Platelet mean volume (Bld) [Entitic vol] 8.2 fL 6.3-10.7 [facility] Platelets Auto (Bld) [#/Vol] Ordered By: Haris Martino on 06-08-2023 Platelets (Bld) [#/Vol] 225 10*3/uL 150-450 [facility] Potassium [Moles/volume] in Serum or PlasmaOrdered By: Haris Martino on 06-08-2023 Potassium [Moles/Vol] 4.0 mmol/L 3.5-5.1 [facility] Protein Auto test strip (U) [Mass/Vol]Ordered By: Haris Martino on 06-08-2023 Protein (U) [Mass/Vol] Negative Negative [facility] Protein [Mass/volume] in Ser um or PlasmaOrdered By: Haris Martino on 06-08-2023 Protein [Mass/Vol] 7.5 g/dL 6.4-8.9 [facility] Prothrombin time (PT)Ordered By: Haris Martino on 06-08-2023 PT Coag (PPP) [Time] 12.2 s 9.0-12.9 [facility] Comment on above: A hematocrit value g reater than 55% may lead to inaccurate results in coagulation testing. Patients having hematocrit values >55% require a special collection tube for coagulation studies. Please contact the laboratory at [phone] for redraw instructions. RBC Auto (Bld) [#/Vol]Ordere d By: Haris Martino on 06-08-2023 RBC (Bld) [#/Vol] 4.94 10*6/uL 3.60-5.00 [facility] Serum or plasma albumin/glob ulin mass ratioOrdered By: Haris Martino on 06-08-2023 Albumin/Globulin [Mass ratio] 1.6 {ratio} [facility] Serum or plasma anion gap de terminationOrdered By: Haris Martino on 06-08-2023 Anion gap [Moles/Vol] 9.7 mmol/L 6.0-15.0 [facility] Serum or plasma non-glucuron idated bilirubin measurement (mass/volume)Ordered By: Haris Martino on 06-08-2023 Bilirubin.indirect [Mass/Vol] 0.3 mg/dL [facility] Sodium [Moles/volume] in Ser um or PlasmaOrdered By: Haris Martino on 06-08-2023 Sodium [Moles/Vol] 139 mmol/L 136-145 [facility] Specific gravity Auto test s trip (U) [Rel density]Ordered By: Haris Martino on 06-08-2023 Specific gravity (U) [Rel density] 1.015 1.001-1.03 0 [facility] Squamous epithelial cells de tection in urine sediment by light microscopyOrdered By: Haris Martino on 06-08-2023 Epithelial cells.squamous LM Ql (Urine sed) 3-4 [HPF] 0-2 [facility] Troponin I.cardiac [Mass/vol ume] in Serum or Plasma by Detection limit <= 0.01 ng/Ordered By: Haris Martino on 06-08-2023 Troponin I.cardiac DL <= 0.01 ng/mL [Mass/Vol] < 2.3 pg/mL 0.0-15.0 [facility] Urea nitrogen [Mass/volume] in Serum or PlasmaOrdered By: Haris Martino on 06-08-2023 Urea nitrogen [Mass/Vol] 10 mg/dL 7-25 [facility] Urine bacteria detection by automated methodOrdered By: Haris Martino on 06-08-2023 Bacteria Auto Ql (U) 1+ None Seen [facility] Urine clarity by refractomet ry automatedOrdered By: Haris Martino on 06-08-2023 Clarity Refractometry automated (U) Clear Clear [facility] Urine glucose measurement by automated test strip (mass/volume)Ordered By: Haris Martino on 06-08-2023 Glucose Auto test strip (U) [Mass/Vol] Normal mg/dL Normal [facility] Urine hemoglobin detection b y automated test stripOrdered By: Haris Martino on 06-08-2023 Hemoglobin Auto test strip Ql (U) Negative Negative [facility] Urine leukocyte esterase det ection by automated test stripOrdered By: Haris Martino on 06-08-2023 Leukocyte esterase Auto test strip Ql (U) 1+ Negative [facility] Urobilinogen Auto test strip (U) [Mass/Vol]Ordered By: Haris Martino on 06-08-2023 Urobilinogen (U) [Mass/Vol] Normal mg/dL Normal [facility] WBC Auto (Bld) [#/Vol]Ordere d By: Haris Martino on 06-08-2023 WBC (Bld) [#/Vol] 8.3 10*3/uL 3.8-11.6 [facility] pH Auto test strip (U)Ordere d By: Haris Martino on 06-08-2023 pH (U) 6.5 [pH] 5.0-9.0 [facility] Alanine aminotransferase [En zymatic activity/volume] in Serum or PlasmaOrdered By: Carlitos Nguyen on 04-25-2023 ALT [Catalytic activity/Vol] 18 U/L 7-52 [facility] Albumin [Mass/volume] in Ser um or Plasma by Bromocresol green (BCG) dye binding methoOrdered By: Carlitos Nguyen on 04-25-2023 Albumin BCG dye [Mass/Vol] 4.8 g/dL 3.5-5.7 [facility] Alkaline phosphatase [Enzyma tic activity/volume] in Serum or PlasmaOrdered By: Carlitos Nguyen on 04-25-2023 ALP [Catalytic activity/Vol] 73 U/L 34-104 [facility] Aspartate aminotransferase [ Enzymatic activity/volume] in Serum or PlasmaOrdered By: Carlitos Nguyen on 04-25-2023 AST [Catalytic activity/Vol] 18 U/L 13-39 [facility] Bilirubin.total [Mass/volume ] in Serum or PlasmaOrdered By: Carlitos Nguyen on 04-25-2023 Bilirubin [Mass/Vol] 0.5 mg/dL 0.3-1.0 [facility] Calcium [Mass/volume] in Ser um or PlasmaOrdered By: Carlitos Nguyen on 04-25-2023 Calcium [Mass/Vol] 9.9 mg/dL 8.6-10.3 [facility] Carbon dioxide, total [Moles /volume] in Serum or PlasmaOrdered By: Carlitos Nguyen on 04-25-2023 CO2 [Moles/Vol] 25.9 mmol/L 21.0-31.0 [facility] Chloride [Moles/volume] in S colin or PlasmaOrdered By: Carlitos Nguyen on 04-25-2023 Chloride [Moles/Vol] 105 mmol/L 98-107 [facility] Cholesterol [Mass/volume] in Serum or PlasmaOrdered By: Carlitos Nguyen on 04-25-2023 Cholesterol [Mass/Vol] 208 mg/dL 140-200 [facility] Comment on above: Chol less than 200 m g/dl low riskChol 201-239 mg/dl borderline riskChol 240 mg/dl and greater high risk Cholesterol in LDL Calc [Mas s/Vol]Ordered By: Carlitos Nguyen on 04-25-2023 Cholesterol in LDL [Mass/Vol] 136 mg/dL 0-100 [facility] Comment on above: LDL ATP III CLASSIFI CATIONLDL less than 100 mg/dL OptimalLDL 100-129 mg/dL Near or above optimalLDL 130-159 mg/dL Borderline highLDL 160-189 mg/dL HighLDL greater than 189 mg/dL Very high Cholesterol in VLDL Calc [Ma ss/Vol]Ordered By: Carlitos Nguyen on 04-25-2023 Cholesterol in VLDL [Mass/Vol] 16 mg/dL [facility] Creatinine [Mass/volume] in Serum or PlasmaOrdered By: Carlitos Nguyen on 04-25-2023 Creatinine [Mass/Vol] 0.81 mg/dL 0.60-1.20 [facility] Globulin Calc (S) [Mass/Vol] Ordered By: Carlitos Nguyen on 04-25-2023 Globulin (S) [Mass/Vol] 2.6 g/dL [facility] Glucose [Mass/volume] in Ser um or PlasmaOrdered By: Carlitos Nugyen on 04-25-2023 Glucose [Mass/Vol] 84 mg/dL 70-100 [facility] No Panel InformationOrdered By: Carlitos Nguyen on 04-25-2023 Estimated GFR (CKD-EPI) > 60.0 mL/Min [facility] Creatinine Clearance (Chem N/A [facility] Potassium [Moles/volume] in Serum or PlasmaOrdered By: Carlitos Nguyen on 04-25-2023 Potassium [Moles/Vol] 4.3 mmol/L 3.5-5.1 [facility] Comment on above: Hemolysis is present at a level that could interfere with the result. Protein [Mass/volume] in Ser um or PlasmaOrdered By: Carlitos Nguyen on 04-25-2023 Protein [Mass/Vol] 7.4 g/dL 6.4-8.9 [facility] Serum or plasma albumin/glob ulin mass ratioOrdered By: Carlitos Nguyen on 04-25-2023 Albumin/Globulin [Mass ratio] 1.8 {ratio} [facility] Serum or plasma anion gap de terminationOrdered By: Carlitos Nguyen on 04-25-2023 Anion gap [Moles/Vol] 12.4 mmol/L 6.0-15.0 [facility] Serum or plasma high density lipoprotein (HDL) cholesterol measurementOrdered By: Carlitos Nguyen on 04-25-2023 Cholesterol in HDL [Mass/Vol] 55 mg/dL 23-92 [facility] Comment on above: HDL CHOL ATP-III CLA SSIFICATION Cardiovascular RiskHDL > or equal to 60 mg/dL LOWHDL < 40 mg/dL HIGH Serum or plasma total choles terol/high density lipoprotein (HDL) cholesterol mass ratOrdered By: Carlitos Nguyen on 04-25-2023 Cholesterol.total/Chol esterol in HDL [Mass ratio] 3.8 {ratio} <5.0 [facility] Sodium [Moles/volume] in Ser um or PlasmaOrdered By: Carlitos Nguyen on 04-25-2023 Sodium [Moles/Vol] 139 mmol/L 136-145 [facility] Triglyceride [Mass/volume] i n Serum or PlasmaOrdered By: Carlitos Nguyen on 04-25-2023 Triglyceride [Mass/Vol] 83 mg/dL 0-149 [facility] Comment on above: TRIG ATP III CLASSIF ICATIONTRIG less than 150 mg/dL NormalTRIG 150-199 mg/dL Borderline highTRIG 200-500 mg/dL High TRIG greater than 500 mg/dL Very highStandard traceable to the Center for Disease Conrtrol and Prevention (CDC) test method. Urea nitrogen [Mass/volume] in Serum or PlasmaOrdered By: Carlitos Nguyen on 04-25-2023 Urea nitrogen [Mass/Vol] 15 mg/dL 7-25 [facility] Tobacco Screening.on 023 Adult depression screening assessment No [facility] [address] DO Work Phone: Fall risk assessment a) No falls within the last year [facility] [address] DO Work Phone: Tobacco use status CP b) No [facility] [address] DO Work Phone: Office Visit (Cardiology)on [...] in adult Healthy Weight Tips; Status:Complete; Done: [id number] SocHx: Never a smoker Tobacco Use Screening; Status:Complete; Done: [id number] Patient Instructions Please bring all medicines, vitamins, [...] she did get a second opinion in [place], and no change in medication was suggested [...] sinus sometime (more content not included)... Normal [facility] Tobacco Screening.on 022 Tobacco use status CPHS b) No [facility] y 250 DO Work Phone: Cardiovasc Arrhythmia Result son 07-31-2022 Cardiovasc Arrhythmia Results Reason For Visit MADYSON is here for the application of a Ziopatch monitor. Ordering Physician: Dr. Maza Diagnosis: abn TTT, dyspnea, syncope, autonomic orthostatic hypotension [facility] equipment agreement signed. MADYSON understands monitor is to be returned on: 08/14/22 Monitor number [id number] applied. Procedure Date I received for dictation [...] Future Appointments Date/TimeProviderSpecialt ySite 09/11/2022 09:30 Melodie Sylvester, [id number] [place] 250 DO 10/13/2022 09:20 Annalee Russell, [id number] [place] [address] DO Signatures Electronically signed by : Annalee Maza MD; Aug 27 2022 10:31AM EST (Author) Reviewed by : Melodie Alcaraz MD; Aug 28 2022 10:26AM EST Normal [facility] Office Visit (Cardiology)on 07-21-2022 Follow-up visit Diagnoses/Problems [...] a smoker Tobacco Use Screening; Status:Complete; Done: [id number] Patient Instructions Drink plenty of water daily, [...] with Dr. Chan Jiang in 1 week. ITammy, AUTOMOBI[employer] BODY REPAIR CHIEF, am scribing for and in the presence of, Dr. Annalee Maza, MA, FACC, FACP, FHRS. Chief Complaint Abnormal [...] heart murmur and has been transferred to [facility] There is no family history of [...] cardiac data (more content not included)... Normal [facility] Tobacco Screening.on 022 Fall risk assessment b) One or more fall s in the last year [facility] [place] DO Work Phone: Tobacco use status [facility] b) No [facility] [place] DO Work Phone: Office Visit (Cardiology)on 07-10-2022 [...] Confirmed - N/A AMA Intake updated by [facility] on 2022-07-11 22:02 New Recipient: Annalee Maza New Appointment Date: 2022-07-21 07:20 Autonomic orthostatic hypotension, Syncope, unspecified syncope type Changed: From To Midodrine HCl - 10 MG Oral Tablet TAKE 1 TABLET 3 TIMES DAILY Class 1 obesity with body mass index (BMI) of 31.0 to 31.9 in adult Avoid getting up or changing positions quickly.; Status:Complete; Done: [id number] Healthy Weight Tips; Status:Complete; Done: [id number] Some eating tips that can help you lose weight.; Status:Complete; Done: 09Lgp1252 Dyspnea (786.09) (R06.00) Class 1 obesity with [...] from 6 (more content not included)... Normal [place] Tobacco Screening.on 022 Tobacco use status HS b) No [facility] y 250 DO Work Phone: COVID CepheidOrdered By: Daniele Pearce on 06-01-2022 SARS-CoV-2 (COVID-19) Ab IA Ql Negative Negative [facility] Comment on above: This is a duplicate [employer] Xpert Xpress CoV-2/Flu/RSV Plus RNA by RT-PCR result to be used for statistical tracking purpose only. SARS-CoV-2 (COVID-19) RNA PERFECTO+probe Ql (Unsp spec) [facility] Office Visit (Cardiology)on 05-18-2022 Follow-up [...] in adult Healthy Weight Tips; Status:Complete; Done: [id number] Some eating tips that can help you lose weight.; Status:Complete; Done: 32Kga6353 Dyspnea, Syncope, unspecified syncope type Urine Test; Status:Active - Retrospective By Protocol Authorization; Requested for:[id number]; Palpitation Start: Atenolol 25 MG Oral Tablet; TAKE 1 TABLET DAILY Syncope, unspecified syncope type Tilt Table; Status:Hold For - Scheduling,Retrospective By Protocol Authorization; Requested for:[id number]; Patient Instructions Please bring all medicines, vitamins, [...] walking to the bathroom. She will see other sports coach or instructor in the near future, she had her pulmonary function test which I reviewed, there is concern for chronic asthma, but no reactive airway disease. She has 3 dogs that she had, and 1 cat at home. She is not orthostatic. She is feeling palpitations quite a bit. Results of the pulmonary function test and a Micah of SSEV was reviewed. Also reviewed stress test and [...] 3.5 c (more content not included)... Normal [facility] Tobacco Screening.on 022 Tobacco use status CPHS b) No -[facility] y 250 DO Work Phone: No Panel Informationon 05-03 [facility] y 250 DO Work Phone: -[facility] [facility] 250 DO Work Phone: Cardiovasc Arrhythmia Result son 03-28-2022 Cardiovasc Arrhythmia Results Reason For Visit Event Monitor: MADYSON is here for the application of a 30 day event monitor in office., Diagnosis: Palps, Dyspnea, Chest pain Ordering Physician: Enrollment sent to: [employer] Monitor number [id number] applied. Holter monitor printed and placed on [...] Palpitation (785.1) (R00.2) Future Appointments Date/TimeProviderSpecialt [facility] 05/03/2022 10:00 María Elena Cesar MDCardiologySurgery [facility] 05/18/2022 09:15 [facility]iology[facility] [place] [facility] DO Signatures Electronically signed by : Melodie Alcaraz MD; May 01 2022 7:56PM EST (Author) [facility] and C hemistry - challengeOrdered By: Melodie Alcaraz on 03-24-2022 Natriuretic peptide B (Bld) [Mass/Vol] 27.0 pg/mL 5-100 [facility] No Panel InformationOrdered By: Melodie Alcaraz on 03-24-2022 D-Dimer Quantitative (PE/DVT) < 200 ng/mL 0-243 [facility] Comment on above: The reference [...] No Panel Informationon 03-24 0.70\S\0.70 Normal 0.45-5.33 [facility] Eduora 250 DO Work Phone: Comment on above: PERFORMED BY:[facility] GREGORIOVenitaJesikaJOSEPOST, [place] [phone] MEDICAL DIRECTOROFE ELLIS M.D. 0.99\S\0.99 Normal 0.61-1.12 [facility] Work Phone: 27.0\S\27.0 Normal 5-100 [facility] [employer]ADSecurity DO Work Phone: Comment on above: PERFORMED BY:[facility] GREGORIOPRESTON[place], [place] [phone] MEDICAL DIRECTOROFE ELLIS M.D. < 200 Normal 0-243 [facility] Center[facility] 250 DO Work Phone: Comment on above: [...] in hospitalized patients due to co-morbid conditions.PERFORMED BY:[facility] [place]GRAM[place]SE[place], [place] [phone] MEDICAL DIRECTOROFE ELLIS M.D. TSH DL <= 0.005 mIU/L QnOrde red By: Melodie Alcaraz on 03-24-2022 TSH Qn 0.70 m[IU]/L 0.45-5.33 [facility] Thyroxine (T4) free [Mass/vo lume] in Serum or PlasmaOrdered By: Melodie Alcaraz on 03-24-2022 Free T4 [Mass/Vol] 0.99 ng/dL 0.61-1.12 [facility] Office Visit (Cardiology)on 03-23-2022 Follow-up visit [...] twin brother had to be taken to [facility], and has history of heart murmur. [...] frequently pic (more content not included)... Normal [facility] Adult depression screening assessment No [facility] y 250 DO Work Phone: Fall risk assessment c) Not medically indicated [facility] HeartDemocracy.comusk y 250 DO Work Phone: Tobacco use status CPHS b) No [facility] [facility] 250 DO Work Phone: ARMANI BY IFA WITH REFLEXon Nuclear Ab IF (S) [Titer] Negative Negative [facility] CCP ANTIBODY IGGon 2 Cyclic citrullinated peptide IgG Qn <15 <20 Units [facility] Cyclic citrullinated peptide IgG Qnon 01-26-2022 CCP Antibody IgG Qualitative Negative Negative [facility] Nuclear Ab IA Ql (S)on 01-26 ARMANI by EIA, Qual Negative Negative [facility] ARMANI BY IFA WITH REFLEXon Nuclear Ab IF (S) [Titer] Negative Normal Negative [facility] Comment on above: Order Comment: Jose Carlos oseguera Type: BLOOD SPECIMEN Ordering Facility: [facility] Address: [address] [place] [address] Result Comment: Anti -nuclear antibody test is used as an aid in diagnosis of systemic autoimmune diseases. Where positive and clinically warranted, follow-up using disease-specific testing is recommended. Low positive titers are not uncommon with advanced age, certain chronic infections, and malignancies among others. Test methodology: Indirect fluorescence immunoassay (IFA) using HEp-2 cells. Performed By: #### A NAIFR #### [facility] CLIA [id number] [address] [place] [address] [place] C-REACTIVE PROTEIN (CRP)on 0 01-25-2022 CRP [Mass/Vol] 0.4 mg/dL <0.9 mg/dL [facility] C1 ESTERASE INHIBITon 2021 C1 ESTERASE INHIBIT 26 mg/dL Normal 21-38 [facility] Comment on above: Order Comment: Jose Carlos oseguera Type: BLOOD SPECIMEN Ordering Facility: [facility] Address: [address] [place] [address] Result Comment: Perf ormed By: [facility] [address] [place] [address] [employer]: Brittin Moscoso MD Performed By: #### 1 6570-4, 55405-7, 62818-0, 04057-4, 52016-3, 91662-8, 19408-6, 87080-7 #### [facility] CLIA [id number] [address] [place] [address] [place] C2 COMPLEMENT BLDon 01-26-20 22 C2 COMPLEMENT 2.4 mg/dL Normal 1.6-4.0 [facility] Comment on above: Order Comment: Jose Carlos oseguera Type: BLOOD SPECIMEN Ordering Facility: [facility] Address: [address] [place] [address] Result Comment: INTE RPRETIVE INFORMATION: Complement Component 2 Decreased C2 levels may be associated with increased susceptibility to infection (especially pneumococcal infections), systemic lupus erythematosus-like disease, rashes, arthritis and nephritis, and with C1-Esterase deficiency. Increased C2 levels are associated with the acute phase response. This test was developed and its performance characteristics determined by [employer]. It has not been cleared or approved by the [place] Food and Drug Administration. This test was performed in a CLIA certified laboratory and is intended for clinical purposes. Performed By: [facility] [address] [place] [id number] [employer]: Brittni Moscoso MD Performed By: #### 1 6570-4, 09133-2, 15150-3, 29054-0, 62506-3, 00443-4, 93789-1, 41913-6 #### [facility] CLIA [id number] [address] [place] [address] [place] C3 COMPLEMENT BLDon 01-26-20 22 Complement C3 [Mass/Vol] 130 mg/dL 86 - 166 mg/dL [facility] C3 SerPl-mCncon 01-25-2022 Complement C3 [Mass/Vol] 130 mg/dL Normal 86-166 [facility] Comment on above: Order Comment: Speci ana rosa Type: BLOOD SPECIMEN Ordering Facility: [facility] Address: [address] [place] [address] Performed By: #### 1 6570-4, 64724-1, 84883-6, 99696-6, 85443-8, 80053-1, 35244-8, 47661-3 #### [facility] CLIA [id number] [address] [place] [address] [place] C4 COMPLEMENT BLDon 01-26-20 22 Complement C4 [Mass/Vol] 30 mg/dL 13 - 46 mg/dL [facility] C4 SerPl-mCncon 01-25-2022 Complement C4 [Mass/Vol] 30 mg/dL Normal 13-46 [facility] Comment on above: Order Comment: Speci ana rosa Type: BLOOD SPECIMEN Ordering Facility: [facility] Address: [address] [place] [address] Performed By: #### 1 6570-4, 83508-8, 67052-1, 04498-9, 33587-5, 10650-7, 77934-9, 10283-3 #### [facility] CLIA [id number] [address] [place] [address] [place] CBC panel Auto (Bld)on 01-25 Erythrocyte distribution width (RBC) [Ratio] 12.1 % Normal 11.5-15.0 [facility] Comment on above: Order Comment: Speci men Type: BLOOD SPECIMEN Ordering Facility: [facility] Address: [address] [place] [address] Performed By: #### 1 6570-4, 76468-9, 51504-0, 16137-4, 38901-3, 76644-6, 32658-6, 94339-1 #### [facility] CLIA [id number] [address] [place] [address] [place] Hematocrit (Bld) [Volume fraction] 42.6 % Normal 36.0-46.0 [facility] Comment on above: Order Comment: Speci men Type: BLOOD SPECIMEN Ordering Facility: [facility] Address: [address] [place] [address] Performed By: #### 1 6570-4, 63575-4, 85158-3, 20558-5, 09755-8, 36203-0, 63359-6, 48582-4 #### [facility] CLIA [id number] [address] [place] [address] [place] Hemoglobin (Bld) [Mass/Vol] 13.8 g/dL Normal 11.5-15.5 [facility] Comment on above: Order Comment: Speci men Type: BLOOD SPECIMEN Ordering Facility: [facility] Address: [address] [place] [address] Performed By: #### 1 6570-4, 57982-2, 24914-7, 55521-6, 05443-2, 76421-4, 27843-8, 62729-8 #### [facility] CLIA [id number] [address] [place] [address] MCH (RBC) [Entitic mass] 28.3 pg Normal 26.0-34.0 [facility] Comment on above: Order Comment: Speci men Type: BLOOD SPECIMEN Ordering Facility: [facility] Address: [address] [place] [address] Performed By: #### 1 6570-4, 27937-3, 50656-8, 37662-0, 29946-5, 51685-2, 46554-2, 40790-4 #### [facility] CLIA [id number] [address] [place] [address] [place] MCHC (RBC) [Mass/Vol] 32.4 g/dL Normal 30.5-36.0 [facility] Comment on above: Order Comment: Speci men Type: BLOOD SPECIMEN Ordering Facility: [facility] Address: [address] [place] [address] Performed By: #### 1 6570-4, 11834-2, 04932-4, 15613-4, 31990-5, 20485-1, 06835-2, 92841-5 #### [facility] CLIA [id number] [address] [place] [address] [place] MCV (RBC) [Entitic vol] 87.3 fL Normal 80.0-100.0 [facility] Comment on above: Order Comment: Speci men Type: BLOOD SPECIMEN Ordering Facility: [facility] Address: [address] [place] [address] Performed By: #### 1 6570-4, 96425-8, 25506-6, 14808-6, 37499-6, 59122-8, 14142-6, 48862-2 #### [facility] CLIA [id number] [address] [place] [address] [place] Nucleated RBC (Bld) [#/Vol] 10*3/uL Normal <0.01 [facility] Comment on above: Order Comment: Speci men Type: BLOOD SPECIMEN Ordering Facility: [facility] Address: [address] [place], [place] [phone] Performed By: #### 1 6570-4, 48884-8, 10960-0, 39959-1, 32747-5, 79341-2, 21021-3, 84887-5 #### [facility] CLIA [id number] [address] [place] [address] [place] Platelet mean volume (Bld) [Entitic vol] 10.3 fL Normal 9.0-12.7 [facility] Comment on above: Order Comment: Speci men Type: BLOOD SPECIMEN Ordering Facility: [facility] Address: [address] [place] [address] Performed By: #### 1 6570-4, 15254-4, 17958-2, 30498-8, 43529-6, 86168-6, 35804-3, 65071-0 #### [facility] CLIA [id number] [address] [place] [address] [place] Platelets (Bld) [#/Vol] 213 10*3/uL Normal 150-400 [facility] Comment on above: Order Comment: Speci men Type: BLOOD SPECIMEN Ordering Facility: [facility] Address: [address] [place] [address] Performed By: #### 1 6570-4, 83010-2, 77967-0, 50927-9, 95605-4, 28044-0, 29459-8, 84726-7 #### [facility] CLIA [id number] [address] [place] [address] [place] RBC (Bld) [#/Vol] 4.88 10*6/uL Normal 3.90-5.20 [facility] Comment on above: Order Comment: Speci men Type: BLOOD SPECIMEN Ordering Facility: [facility] Address: [address] [place], [place] [phone] Performed By: #### 1 6570-4, 79908-9, 34641-0, 97390-6, 37469-7, 12849-5, 83623-2, 07652-5 #### [facility] CLIA [id number] [address] [place] [address] [place] [facility] WBC (Bld) [#/Vol] 4.77 10*3/uL Normal 3.70-11.00 [facility] Comment on above: Order Comment: Speci men Type: BLOOD SPECIMEN Ordering Facility: [facility] Address: [address] [place] [address] Performed By: #### 1 6570-4, 33008-1, 86447-5, 49799-0, 75653-5, 17462-9, 56653-0, 81705-2 #### [facility] CLIA [id number] [address] [place] [address] [place] Erythrocyte distribution width (RBC) [Ratio] 12.1 % 11.5 - 15.0 % [facility] Hematocrit (Bld) [Volume fraction] 42.6 % 36.0 - 46.0 % [facility] Hemoglobin (Bld) [Mass/Vol] 13.8 g/dL 11.5 - 15.5 g/dL [facility] MCH (RBC) [Entitic mass] 28.3 pg 26.0 - 34.0 pg [facility] MCHC (RBC) [Mass/Vol] 32.4 g/dL 30.5 - 36.0 g/dL [facility] MCV (RBC) [Entitic vol] 87.3 fL 80.0 - 100.0 fL [facility] Nucleated RBC (Bld) [#/Vol] 10*3/uL <0.01 k/uL [facility] Platelet mean volume (Bld) [Entitic vol] 10.3 fL 9.0 - 12.7 fL [facility] Platelets (Bld) [#/Vol] 213 10*3/uL 150 - 400 k/uL [facility] RBC (Bld) [#/Vol] 4.88 10*6/uL 3.90 - 5.20 m/uL [facility] WBC (Bld) [#/Vol] 4.77 10*3/uL 3.70 - 11.00 k/uL [facility] CRP SerPl-mCncon 01-25-2022 CRP [Mass/Vol] 0.4 mg/dL Normal <0.9 [facility] Comment on above: Order Comment: Speci ana rosa Type: BLOOD SPECIMEN Ordering Facility: [facility] Address: [address] [place] [address] Performed By: #### 1 6570-4, 37791-4, 28811-9, 37353-5, 70893-6, 65365-2, 26292-6, 44472-1 #### [facility] CLIA [id number] [address] [place] [address] [place] Centromere Ab IF Ql (S)on Centromere Ab Qn (S) <0.2 Normal <1.0 [facility] Comment on above: Order Comment: Horacioi ana rosa Type: BLOOD SPECIMEN Ordering Facility: [facility] Address: [address] [place] [address] Result Comment: Anti -centromere antibody is used as in aid in diagnosis of systemic sclerosis. Clinical correlation is required. Test Methodology: Multiplex flow immunoassay. Performed By: #### 1 6570-4, 27655-5, 33770-1, 29826-4, 22943-6, 16915-9, 65285-3, 87069-6 #### [facility] CLIA [id number] [address] [place] [address] [place] CENTROMERE AB QUAL Negative Normal Negative [facility] Comment on above: Order Comment: Speci men Type: BLOOD SPECIMEN Ordering Facility: [facility] Address: [address] [place], [place] [phone] Performed By: #### 1 6570-4, 90473-3, 72244-5, 73767-0, 57940-6, 80048-1, 25169-0, 30067-6 #### [facility] CLIA [id number] [address] [place] [address] [place] Chromatin Ab Qnon 01-25-2022 CHROMATIN AB QUAL Negative Normal Negative [facility] Comment on above: Order Comment: Speci men Type: BLOOD SPECIMEN Ordering Facility: [facility] Address: [address] [place] [address] Performed By: #### 1 6570-4, 40915-0, 39883-7, 45644-3, 03341-7, 95127-8, 29761-6, 19921-3 #### [facility] CLIA [id number] [address] [place] [address] [place] Chromatin Ab SerPl-aCncon Chromatin Ab Qn <0.2 Normal <1.0 [facility] Comment on above: Order Comment: Speci men Type: BLOOD SPECIMEN Ordering Facility: [facility] Address: [address] [place] [address] Result Comment: Test Methodology: Multiplex flow immunoassay. Performed By: #### 1 6570-4, 08925-2, 11995-3, 61541-1, 33773-3, 22146-4, 72022-9, 07995-2 #### [facility] CLIA [id number] [address] [place] [address] [place] Comprehensive metabolic 2000 panelon 01-25-2022 Albumin [Mass/Vol] 4.5 g/dL 3.9 - 4.9 g/dL [facility] ALP [Catalytic activity/Vol] 65 U/L 34 - 123 U/L [facility] ALT [Catalytic activity/Vol] 14 U/L 7 - 38 U/L [facility] Anion gap [Moles/Vol] 11 mmol/L 9 - 18 mmol/L [facility] AST [Catalytic activity/Vol] 14 U/L 13 - 35 U/L [facility] Bilirubin [Mass/Vol] 0.3 mg/dL 0.2 - 1 .3 mg/dL [facility] Calcium [Mass/Vol] 9.5 mg/dL 8.5 - 10. 2 mg/dL [facility] Chloride [Moles/Vol] 105 mmol/L 97 - 10 5 mmol/L [facility] CO2 [Moles/Vol] 26 mmol/L 22 - 30 mmol/L [facility] Creatinine [Mass/Vol] 0.71 mg/dL 0.58 - 0.96 mg/dL [facility] Estimated Glomerular Filtration Rate 125 mL/min/1.73m >=60 mL/min/1.7 3m [facility] Glucose [Mass/Vol] 94 mg/dL 74 - 99 mg/dL [facility] Potassium [Moles/Vol] 4.6 mmol/L 3.7 - 5.1 mmol/L [facility] Protein [Mass/Vol] 7.2 g/dL 6.3 - 8.0 g/dL [facility] Sodium [Moles/Vol] 142 mmol/L 136 - 144 mmol/L [facility] Urea nitrogen [Mass/Vol] 8 mg/dL 7 - 21 mg/dL [facility] Albumin [Mass/Vol] 4.5 g/dL Normal 3.9-4.9 [facility] Comment on above: Order Comment: Speci men Type: BLOOD SPECIMEN Ordering Facility: [facility] Address: [address] [place] [address] Performed By: #### 1 6570-4, 44768-5, 12076-2, 37836-5, 37044-0, 58151-6, 83787-9, 64883-9 #### [facility] CLIA [id number] [address] [place] [address] [place] ALP [Catalytic activity/Vol] 65 U/L Normal 34-123 [facility] Comment on above: Order Comment: Speci men Type: BLOOD SPECIMEN Ordering Facility: [facility] Address: [address] [place] [address] Performed By: #### 1 6570-4, 38052-6, 25320-1, 32236-9, 42498-0, 70341-8, 78862-4, 14429-3 #### [facility] CLIA [id number] [address] [place] [address] [place] ALT [Catalytic activity/Vol] 14 U/L Normal 7-38 [facility] Comment on above: Order Comment: Speci men Type: BLOOD SPECIMEN Ordering Facility: [facility] Address: [address] [place] [address] Performed By: #### 1 6570-4, 24762-7, 89036-0, 56340-7, 45266-5, 68681-8, 08268-3, 78560-1 #### [facility] CLIA [id number] [address] [place] [address] [place] Anion gap [Moles/Vol] 11 mmol/L Normal 9-18 [facility] Comment on above: Order Comment: Speci men Type: BLOOD SPECIMEN Ordering Facility: [facility] Address: [address] [place] [address] Performed By: #### 1 6570-4, 89495-6, 96484-6, 27921-9, 64349-3, 69134-4, 20781-5, 48518-8 #### [facility] CLIA [id number] [address] [place] [address] [place] AST [Catalytic activity/Vol] 14 U/L Normal 13-35 [facility] Comment on above: Order Comment: Speci men Type: BLOOD SPECIMEN Ordering Facility: [facility] Address: [address] [place] [address] Performed By: #### 1 6570-4, 19399-4, 71162-4, 96013-6, 76890-9, 26476-7, 71713-6, 60821-8 #### [facility] CLIA [id number] [address] [place] [address] [place] Bilirubin [Mass/Vol] 0.3 mg/dL Normal 0.2-1.3 [facility] Comment on above: Order Comment: Speci men Type: BLOOD SPECIMEN Ordering Facility: [facility] Address: [address] [place] [address] Performed By: #### 1 6570-4, 36954-8, 52174-4, 61104-9, 24472-9, 94121-8, 88488-9, 29627-8 #### [facility] CLIA [id number] [address] [place] [address] [place] Calcium [Mass/Vol] 9.5 mg/dL Normal 8.5-10.2 [facility] Comment on above: Order Comment: Speci men Type: BLOOD SPECIMEN Ordering Facility: [facility] Address: [address] [place] [address] Performed By: #### 1 6570-4, 34721-1, 52503-7, 81146-1, 56947-1, 34516-1, 57495-3, 43723-9 #### [facility] CLIA [id number] [address] [place] [address] [place] Chloride [Moles/Vol] 105 mmol/L Normal 97-105 [facility] Comment on above: Order Comment: Speci men Type: BLOOD SPECIMEN Ordering Facility: [facility] Address: [address] [place] [address] Performed By: #### 1 6570-4, 66322-3, 50887-1, 84669-6, 46147-1, 63552-9, 42339-9, 15413-0 #### [facility] CLIA [id number] [address] [place] [address] [place] CO2 [Moles/Vol] 26 mmol/L Normal 22-30 [facility] Comment on above: Order Comment: Speci men Type: BLOOD SPECIMEN Ordering Facility: [facility] Address: [address] [place] [address] Performed By: #### 1 6570-4, 75048-6, 95766-5, 60914-9, 54082-2, 07584-1, 88359-9, 83848-2 #### [facility] CLIA [id number] [address] [place] [address] [place] Creatinine [Mass/Vol] 0.71 mg/dL Normal 0.58-0.96 [facility] Comment on above: Order Comment: Jose Carlos oseguera Type: BLOOD SPECIMEN Ordering Facility: [facility] Address: [address] [facility] [place] [address] Performed By: #### 1 6570-4, 97500-9, 12921-1, 39287-2, 06176-9, 45823-7, 97656-9, 99468-2 #### [facility] CLIA [id number] [address] [place] [address] [place] ESTIMATED GLOMERULAR FILTRATION RATE 125 mL/min/1.73m??? Normal >=60 [facility] Comment on above: Order Comment: Jose Carlos oseguera Type: BLOOD SPECIMEN Ordering Facility: [facility] Address: [facility] [place] [id number] Result Comment: Francesca mated Glomerular Filtration Rate [...] actual GFR. Performed By: #### 1 6570-4, 63994-7, 21608-5, 35530-1, 90301-6, 75221-9, 97913-7, 52043-4 #### [facility] CLIA [id number] [address] [place] [address] [place] Glucose [Mass/Vol] 94 mg/dL Normal 74-99 [facility] Comment on above: Order Comment: Jose Carlos oseguera Type: BLOOD SPECIMEN Ordering Facility: [facility] Address: [address] [place] [address] Result Comment: The [place] [employer] (ADA) provides guidance for cutoff [...] Standards of Medical Care in Diabetes 2016, [place] [employer]. Diabetes Care. 2016.39(Suppl 1). Performed By: #### 1 6570-4, 70762-9, 48942-8, 01018-3, 16144-2, 05376-1, 45363-6, 42856-1 #### [facility] CLIA [id number] [address] [place] [address] [place] Potassium [Moles/Vol] 4.6 mmol/L Normal 3.7-5.1 [facility] Comment on above: Order Comment: Horacioi ana rosa Type: BLOOD SPECIMEN Ordering Facility: [facility] Address: [address] [place] [address] Performed By: #### 1 6570-4, 93881-0, 31636-4, 02085-6, 15185-0, 74589-8, 33894-0, 70002-3 #### [facility] CLIA [id number] [address] [place] [address] [place] Protein [Mass/Vol] 7.2 g/dL Normal 6.3-8.0 [facility] Comment on above: Order Comment: Horacioi ana rosa Type: BLOOD SPECIMEN Ordering Facility: [facility] Address: [address] [place] [address] Performed By: #### 1 6570-4, 09714-7, 48943-9, 20135-2, 43949-3, 24482-7, 85495-7, 11474-4 #### [facility] CLIA [id number] [address] [place] [address] [place] Sodium [Moles/Vol] 142 mmol/L Normal 136-144 [facility] Comment on above: Order Comment: Horacioi men Type: BLOOD SPECIMEN Ordering Facility: [facility] Address: [address] [place] [address] Performed By: #### 1 6570-4, 18986-1, 54784-9, 69726-1, 39129-2, 37406-1, 05752-1, 61062-4 #### [facility] CLIA [id number] [address] [place] [address] [place] Urea nitrogen [Mass/Vol] 8 mg/dL Normal 7-21 [facility] Comment on above: Order Comment: Speci men Type: BLOOD SPECIMEN Ordering Facility: [facility] Address: [address] [place] [address] Performed By: #### 1 6570-4, 38741-6, 72954-0, 02805-7, 23096-2, 82458-0, 84485-2, 94865-8 #### [facility] CLIA [id number] [address] [place] [address] [place] Cyclic citrullinated peptide IgG Qnon 01-25-2022 CCP ANTIBODY IGG QUALITATIVE Negative Normal Negative [facility] Comment on above: Order Comment: Speci men Type: BLOOD SPECIMEN Ordering Facility: [facility] Address: [address] [place] [address] Performed By: #### 1 6570-4, 97906-2, 56581-0, 17457-9, 54812-5, 93853-0, 76101-9, 69895-0 #### [facility] CLIA [id number] [address] [place] [address] [place] JASON Jo1 Ab Ser-aCncon 2021 Yuly-1 extractable nuclear Ab Qn (S) <0.2 Normal <1.0 [facility] Comment on above: Order Comment: Speci men Type: BLOOD SPECIMEN Ordering Facility: [facility] Address: [address] [place] [address] Performed By: #### 1 6570-4, 03803-8, 63342-5, 50241-0, 33381-8, 36959-0, 51954-9, 79018-6 #### [facility] CLIA [id number] [address] [place] [address] [place] COMPENSATION AND BENEFITS ANALYST Ab Ser-aCncon 2021 Ribonucleoprotein extractable nuclear Ab Qn (S) <0.2 Normal <1.0 [facility] Comment on above: Order Comment: Speci men Type: BLOOD SPECIMEN Ordering Facility: [facility] Address: [address] [place] [address] Performed By: #### 1 6570-4, 92513-5, 83790-5, 46927-9, 62989-7, 81855-8, 81384-6, 07077-2 #### [facility] CLIA [id number] [address] [place] [address] [place] SM IgG Ser-aCncon 2021 Cota extractable nuclear IgG Qn (S) <0.2 Normal <1.0 [facility] Comment on above: Order Comment: Speci men Type: BLOOD SPECIMEN Ordering Facility: [facility] Address: [address] [place] [address] Performed By: #### 1 6570-4, 98297-3, 47339-4, 72880-3, 55142-1, 19157-4, 05393-3, 98684-3 #### [facility] CLIA [id number] [address] [place] [address] [place] SS-A Ab Ser-aCncon 01-25 Sjogrens syndrome-A extractable nuclear Ab Qn (S) <0.2 Normal <1.0 [facility] Comment on above: Order Comment: Speci men Type: BLOOD SPECIMEN Ordering Facility: [facility] Address: [address] [place] [address] Result Comment: Test Methodology: Multiplex flow immunoassay. Performed By: #### 1 6570-4, 49609-8, 52041-2, 76099-2, 57073-4, 31917-8, 62002-3, 36914-3 #### [facility] CLIA [id number] [address] [place] [address] [place] JASON SS-B Ab Ser-aCncon 01-25 Sjogrens syndrome-B extractable nuclear Ab Qn (S) <0.2 Normal <1.0 [facility] Comment on above: Order Comment: Speci men Type: BLOOD SPECIMEN Ordering Facility: [facility] Address: [address] [place] [address] Result Comment: Anti -SSB (anti-La) antibody is used as an aid in diagnosis of a variety of systemic autoimmune diseases, especially for Sjogren's syndrome and systemic lupus erythematosus. Clinical correlation is required. Test Methodology: Multiplex flow immunoassay. Performed By: #### 1 6570-4, 04504-3, 18520-7, 13264-3, 20454-3, 45375-0, 78630-3, 29608-1 #### [facility] CLIA [id number] [address] [place] [address] [place] ESR Westergren method (Bld) [Velocity]on 01-25-2022 ESR (Bld) [Velocity] 2 mm/h 0 - 20 mm/hr [facility] ESR (Bld) [Velocity] 2 mm/h Normal 0-20 [facility] Comment on above: Order Comment: Speci men Type: BLOOD SPECIMEN Ordering Facility: [facility] Address: [address] [place] [address] Performed By: #### 1 6570-4, 17247-8, 54926-6, 08832-0, 47916-5, 04239-9, 92619-3, 83081-7 #### [facility] CLIA [id number] [address] [place] [address] [place] HBV core Ab Ser Qlon 022 HBV core Ab Ql (S) Negative Normal Negative [facility] Comment on above: Order Comment: Speci men Type: BLOOD SPECIMEN Ordering Facility: [facility] Address: [address] [place], [place] [address] Result Comment: No e vidence of current or past infection with Hepatitis B virus. Should recent infection be suspected, repeat testing may be considered 3-4 weeks after this draw. Performed By: #### 1 6570-4, 69229-0, 60038-0, 48764-6, 06386-9, 89491-3, 77352-5, 41959-1 #### [facility] CLIA [id number] [address] [place] [address] [place] HBV surface Ab IA Ql (S)on 0 01-25-2022 HBV surface Ag Ql (S) Negative Normal Negative [facility] Comment on above: Order Comment: Speci men Type: BLOOD SPECIMEN Ordering Facility: [facility] Address: [address] [place] [address] Performed By: #### 1 6570-4, 27934-3, 34820-3, 03102-4, 18352-5, 39638-6, 41470-7, 20821-8 #### [facility] CLIA [id number] [address] [place] [address] [place] HBV surface Ab Ser Qlon HBV surface Ab Ql (S) Negative Normal Negative [facility] Comment on above: Order Comment: Speci men Type: BLOOD SPECIMEN Ordering Facility: [facility] Address: [address] [place] [address] Result Comment: No e vidence of current or past infection with Hepatitis B virus. Should recent infection be suspected, repeat testing may be considered 3-4 weeks after this draw. Performed By: #### 1 6570-4, 19307-1, 22282-3, 43006-5, 45623-4, 39349-9, 64609-4, 98151-8 #### [facility] CLIA [id number] [address] [place] [address] [place] HCV Ab Ser Qlon 01-25-2022 HCV Ab Ql (S) Negative Normal Negative [facility] Comment on above: Order Comment: Jose Carlos oseguera Type: BLOOD SPECIMEN Ordering Facility: [facility] Address: [address] [place] [address] Result Comment: The result suggests no evidence of active infection with Hepatitis C virus. Should recent infection be suspected, repeat testing may be considered 4-6 weeks after this draw. Performed By: #### 1 6570-4, 50773-7, 41010-8, 24004-5, 80044-5, 72742-7, 87122-6, 59649-9 #### [facility] CLIA [id number] [address] [place] [address] [place] Yuly-1 extractable nuclear Ab Qn (S)on 01-25-2022 YULY 1 ANTIBODY QUAL Negative Normal Negative [facility] Comment on above: Order Comment: Jose Carlos oseguera Type: BLOOD SPECIMEN Ordering Facility: [facility] Address: [address] [place] [address] Result Comment: Anti -YULY-1 antibody is used as an aid in diagnosis of polymyositis and dermatomyositis especially with pulmonary involvement. A negative result cannot rule out polymyositis or dermatomyositis. Clinical correlation is required. Test Methodology: Multiplex flow immunoassay. Performed By: #### 1 6570-4, 42107-6, 85743-9, 23965-0, 14830-7, 06718-1, 88127-9, 85169-3 #### [facility] CLIA [id number] [address] [place] [address] [place] Nuclear Ab IA Ql (S)on 01-25 ARMANI BY EIA, QUAL Negative Normal Negative [facility] Comment on above: Order Comment: Jose Carlos oseguera Type: BLOOD SPECIMEN Ordering Facility: [facility] Address: [address] [place] [address] Result Comment: The qualitative antinuclear antibody screen test performed using enzyme immunoassay including the following antigens: dsDNA, histones, SS-A, SS-B, Sm, Sm/COMPENSATION AND BENEFITS ANALYST, Scl-70, Yuly-1, and centromeric antigens. Performed By: #### 1 6570-4, 81476-8, 90471-0, 64043-0, 11962-5, 64163-7, 78686-5, 05923-5 #### [facility] CLIA [id number] [address] [place] [address] [place] RHEUMATOID FACTOR BLon 01-25 Rheumatoid factor Qn [IU]/mL <16 IU/mL [facility] Rheumatoid factor Qn [IU]/mL Normal <16 [facility] Comment on above: Order Comment: Specyelitza oseguera Type: BLOOD SPECIMEN Ordering Facility: [facility] Address: [address] [place] [address] Performed By: #### 1 6570-4, 90373-6, 04994-3, 57453-6, 42827-4, 78212-7, 42164-2, 20875-5 #### [facility] CLIA [id number] [address] [place] [address] [place] Ribonucleoprotein extractabl e nuclear Ab Qn (S)on 01-25-2022 ANTI-COMPENSATION AND BENEFITS ANALYST QUAL Negative Normal Negative [facility] Comment on above: Order Comment: Jose Carlos oseguera Type: BLOOD SPECIMEN Ordering Facility: [facility] Address: [address] [place] [address] Performed By: #### 1 6570-4, 93490-9, 29435-4, 82417-2, 91312-0, 06236-0, 20032-8, 13703-7 #### [facility] CLIA [id number] [address] [place] [address] [place] RIBOSOMAL COMPENSATION AND BENEFITS ANALYST QUAL Negative Normal Negative [facility] Comment on above: Order Comment: Jose Carlos oseguera Type: BLOOD SPECIMEN Ordering Facility: [facility] Address: [address] [place] [address] Result Comment: Anti -Ribosomal RNA (Ribosomal P) antibody is used as an aid in diagnosis of systemic autoimmune diseases especially systemic lupus erythematosus and mixed connective tissue disease. Cross-reactivity with Anti-cota antibody is not uncommon. Clinical correlation is required. Test Methodology: Multiplex flow immunoassay. Performed By: #### 1 6570-4, 74600-9, 05860-3, 77021-9, 50165-6, 08196-2, 75437-2, 92560-0 #### [facility] CLIA [id number] [address] [place] [address] [place] SCL-70 extractable nuclear I gG IA Qn (S)on 01-25-2022 SCLERODERMA AB QUAL Negative Normal Negative [facility] Comment on above: Order Comment: Speci men Type: BLOOD SPECIMEN Ordering Facility: [facility] Address: [address] [place] [address] Performed By: #### 1 6570-4, 12721-5, 16305-1, 39271-2, 69589-2, 99499-7, 50341-0, 07642-5 #### [facility] CLIA [id number] [address] [place] [address] [place] SCLERODERMA IGG AB <0.2 Normal <1.0 [facility] Comment on above: Order Comment: Speci [facility] Type: BLOOD SPECIMEN Ordering Facility: [facility] Address: [address] [place] [address] Result Comment: Scl- 70/Scleroderma antibody test is used as an aid in diagnosis of systemic sclerosis especially the diffuse cutaneous form. A negative result cannot rule out systemic sclerosis. The final interpretation should consider clinical picture and other test results such as anti-centromere antibody. Test Methodology: Multiplex flow immunoassay. Performed By: #### 1 6570-4, 45595-1, 59106-4, 63096-9, 11307-5, 10527-8, 01924-2, 13122-2 #### [facility] CLIA [id number] [address] [place] [address] [place] Sjogrens syndrome-A extracta ble nuclear Ab Qn (S)on 01-25-2022 SSA ANTIBODY QUAL Negative Normal Negative [facility] Comment on above: Order Comment: Speci men Type: BLOOD SPECIMEN Ordering Facility: [facility] Address: [address] [place] [address] Performed By: #### 1 6570-4, 34953-5, 76534-8, 41348-6, 70506-9, 19378-2, 56882-4, 18920-5 #### [facility] CLIA [id number] [address] [place] [address] [place] Sjogrens syndrome-B extracta ble nuclear Ab Qn (S)on 01-25-2022 SSB ANTIBODY QUAL Negative Normal Negative [facility] Comment on above: Order Comment: Speci men Type: BLOOD SPECIMEN Ordering Facility: [facility] Address: [address] [place] [address] Performed By: #### 1 6570-4, 05434-0, 15330-8, 40067-9, 82835-2, 52109-5, 78209-1, 47950-7 #### [facility] CLIA [id number] [address] [place] [address] [place] Cota extractable nuclear Ig G Qn (S)on 01-25-2022 SM ANTIBODY QUAL Negative Normal Negative [facility] Comment on above: Order Comment: Speci men Type: BLOOD SPECIMEN Ordering Facility: [facility] Address: [address] [place] [address] Result Comment: Anti -Sm (Cota) antibody is used as an aid in diagnosis of systemic lupus erythematosus and its presence is associated with renal disease. A negative result cannot rule out systemic lupus erythematosus. Clinical correlation is required. Test Methodology: Multiplex flow immunoassay. Performed By: #### 1 6570-4, 88273-1, 68512-9, 28592-8, 72443-4, 60808-9, 05399-2, 32431-8 #### [facility] CLIA [id number] [address] [place] [address] [place] cCP IgG SerPl-aCncon 022 Cyclic citrullinated peptide IgG Qn <15 Normal <20 [facility] Comment on above: Order Comment: Speci men Type: BLOOD SPECIMEN Ordering Facility: [facility] Address: [address] [place], [place] [id number] Performed By: #### 1 6570-4, 28894-6, 72381-2, 81134-9, 38179-7, 50826-1, 58400-8, 74998-4 #### [facility] CLIA [id number] [address] [place] [address] [address] [place] XR ankle LT min 3V*on 2021 XR ankle LT min 3V* [facility] [employer] Other XR ankle LT min 3V* [facility] [employer] Other XR ankle LT min 3V* [address] [place] [address] [employer] Other XR ankle LT min 3V* [place] [address] [employer] Other XR ankle LT min 3V* XRay Report [employer] Other XR ankle LT min 3V* Signed [employer] Other XR ankle LT min 3V* Patient: Madyson Schmid MR#: [id number] [employer] Other XR ankle LT min 3V* : 2000 Acct:[id number] [employer] Other XR ankle LT min 3V* Age/Sex: 20 / F ADM Date: 10/10/21 [employer] Other XR ankle LT min 3V* Loc: XDUCLY Room: pe: [facility] [employer] Other XR ankle LT min 3V* Attending Dr: Christina GONZALEZ [employer] Other XR ankle LT min 3V* Ordering Provider: CARLOS Santos [employer] Other XR ankle LT min 3V* Date of Service: 10/10/21 [employer] Other XR ankle LT min 3V* XR/XR ankle LT min 3V*: Acute left ankle pain [employer] Other XR ankle LT min 3V* Copies to: Christina Pearce [employer] SUPER[employer]OR[employer] Other XR ankle LT min 3V* Left ankle 10/10/2021. [employer] Other XR ankle LT min 3V* CLINICAL DATA: Left ankle pain after twisting injury. [employer] Other XR ankle LT min 3V* FINDINGS: 3 views of the left ankle were obtained. [employer] Other XR ankle LT min 3V* No acute fracture or dislocation is identified. No other bony abnormality is seen. Anterolateral [employer] Other XR ankle LT min 3V* soft tissue swelling is noted. [employer] Other XR ankle LT min 3V* X R/XR ankle LT min 3V* [employer] Other XR ankle LT min 3V* IMPRESSION: Soft tis cody swelling. No acute bony abnormality. [employer] Other XR ankle LT min 3V* Impression dictated by: Erick Cueto Jr., M.D.10/10/2021 4:24 PM [employer] Other XR ankle LT min 3V* Dictation Location: [place] [address] [employer] Other XR ankle LT min 3V* Transcribed By: MIRELLA 10/10/21 1622 [employer] Other XR ankle LT min 3V* Dictated By: Erick Cueto Jr, MD 10/10/21 1621 [employer] Other XR ankle LT min 3V* Signed By: [employer] Other XR ankle LT min 3V* 10/10/21 1624 No rt [employer] Other Vital Signs Date Time Vital Sign Value Performing Clinician Facility 08-13-2024 09:22-0500 Body height 165.1 cm Hammad Hatch MD Work Phone: [facility] 08-13-2024 09:22-0500 Body mass index (BMI) [Ratio] 36.91 kg/m2 Hammad Hatch MD Work Phone: [facility] 08-13-2024 09:22-0500 Body weight 100.61 kg Hammad Hatch MD Work Phone: [facility] 08-05-2024 09:05-0500 Body mass index (BMI) [Ratio] 36.44 kg/m2 Flori Gil PA Work Phone: [facility] 08-05-2024 09:05-0500 Body weight 99.34 kg Flori Louise PA Work Phone: [facility] 08-05-2024 09:05-0500 Diastolic blood pressure 68 mm[Hg] Flori Louise PA Work Phone: [facility] 08-05-2024 09:05-0500 Systolic blood pressure 110 mm[Hg] Flori Gli PA Work Phone: [facility] 07-03-2024 14:41-0400 Body mass index (BMI) [Ratio] 35.65 kg/m2 Flori Delmar PA Work Phone: [facility] 07-03-2024 14:41-0400 Body weight 97.18 kg Flori Louise PA Work Phone: [facility] 07-03-2024 14:41-0400 Diastolic blood pressure 64 mm[Hg] Flori Gil PA Work Phone: [facility] 07-03-2024 14:41-0400 Systolic blood pressure 116 mm[Hg] Flori TOLBERT Work Phone: [facility] 11-30-2023 09:33-0500 Body height 165.1 cm Jyoti Dickey PA-C Work Phone: [facility] 11-30-2023 09:33-0500 Body weight 92.99 kg Jyoti Dickey PA-C Work Phone: [facility] 11-30-2023 09:33-0500 Diastolic blood pressure 79 mm[Hg] Jyoti Dickey PA-C Work Phone: [facility] 11-30-2023 09:33-0500 Heart rate 84 /min Jyoti Gallowayur PA-C Work Phone: [facility] 11-30-2023 09:33-0500 SaO2% (BldA) [Mass fraction] 96 % Jyoti Dickey PA-C Work Phone: [facility] 11-30-2023 09:33-0500 Systolic blood pressure 118 mm[Hg] Jyoti Dickey PA-C Work Phone: [facility] 06-13-2023 12:36-0400 Body height 165.1 cm Ibis Limer [facility] [employer] 600 DO Work Phone: 06-13-2023 12:36-0400 Body mass index (BMI) [Ratio] 33.28 kg/m2 Ibis Limer Work Phone: [facility] [employer] 600 DO Work Phone: 06-13-2023 12:36-0400 Body surface area Derived from formula 1.98 m2 Ibis Limer Work Phone: [facility] [employer] 600 DO Work Phone: 06-13-2023 12:36-0400 Body weight 90.72 kg Ibis Limer Work Phone: [facility] [employer] 600 DO Work Phone: 06-13-2023 12:36-0400 Diastolic blood pressure 80 mm[Hg] Ibis A Myra Work Phone: [facility] 600 DO Work Phone: 06-13-2023 12:36-0400 Heart rate 76 /min Ibis A Myra Work Phone: [facility] 600 DO Work Phone: 06-13-2023 12:36-0400 Systolic blood pressure 116 mm[Hg] Ibis A Myra Work Phone: [facility] 600 DO Work Phone: 06-08-2023 21:50-0400 Diastolic blood pressure 59 mm[Hg] [employer] SUPER[employer]OR-C Ibis Myra Work Phone: [facility] 06-08-2023 21:50-0400 Heart rate 82 /min [employer] SUPER[employer]OR[employer] Ibis Myra Work Phone: [facility] 06-08-2023 21:50-0400 Respiratory rate 18 /min [employer] SUPER[employer] Ibis Myra Work Phone: [facility] 06-08-2023 21:50-0400 SaO2% (BldA) [Mass fraction] 99 % [employer] SUPER[employer]OR-C Ibis Myra Work Phone: [facility] 06-08-2023 21:50-0400 Systolic blood pressure 115 mm[Hg] [employer] SUPERVISOR-C Ibis Myra Work Phone: [facility] 06-08-2023 16:35-0400 Body height 165.1 cm [employer] SUPERVISOR-C Ibis Myra Work Phone: [facility] 06-08-2023 16:35-0400 Body temperature 97.8 [degF] [employer] SUPERVISOR-C Ibis Myra Work Phone: [facility] 06-08-2023 16:35-0400 Body weight 91.6 kg [employer] SUPER[employer]OR[employer] Ibis Myra Work Phone: [facility] 12-28-2022 15:00-0400 Body weight 89.36 kg Irvin Hanna MD Work Phone: [facility] 12-28-2022 15:00-0400 Diastolic blood pressure 86 mm[Hg] Irvin Hanna MD Work Phone: [facility] 12-28-2022 15:00-0400 Heart rate 79 /min Irvin Hanna MD Work Phone: [facility] 12-28-2022 15:00-0400 Respiratory rate 16 /min Irvin Hanna MD Work Phone: [facility] 12-28-2022 15:00-0400 Systolic blood pressure 119 mm[Hg] Irvin Hanna MD Work Phone: [facility] 10-13-2022 09:35-0500 Body height 165.1 cm Ibis Rhonda Myra Work Phone: [facility] 320 DO Work Phone: 10-13-2022 09:35-0500 Body mass index (BMI) [Ratio] 33.45 kg/m2 Ibis A Myra Work Phone: [facility] 320 DO Work Phone: 10-13-2022 09:35-0500 Body surface area Derived from formula 1.98 m2 Ibis A Myra Work Phone: [facility] 320 DO Work Phone: 10-13-2022 09:35-0500 Body weight 91.17 kg Ibis A Myra Work Phone: [facility] [address] DO Work Phone: 10-13-2022 09:35-0500 Diastolic blood pressure 70 mm[Hg] Ibis A Myra Work Phone: [facility] [address] DO Work Phone: 10-13-2022 09:35-0500 Heart rate 76 /min Ibis A Myra Work Phone: [facility] DO Work Phone: 10-13-2022 09:35-0500 Systolic blood pressure 102 mm[Hg] Ibis A Myra Work Phone: [facility] 320 DO Work Phone: 09-11-2022 09:58-0500 Diastolic blood pressure 82 mm[Hg] Ibis A Myra Work Phone: [facility] 250 DO Work Phone: 09-11-2022 09:58-0500 Diastolic blood pressure 80 mm[Hg] Ibis A Myra Work Phone: [facility] 250 DO Work Phone: 09-11-2022 09:58-0500 Systolic blood pressure 112 mm[Hg] Ibis A Myra Work Phone: [facility] 250 DO Work Phone: 09-11-2022 09:58-0500 Systolic blood pressure 108 mm[Hg] Ibis A Myra Work Phone: [facility] 250 DO Work Phone: 09-11-2022 08:57-0500 Body height 165.1 cm Ibis A Myra Work Phone: [facility] DO Work Phone: 09-11-2022 08:57-0500 Body mass index (BMI) [Ratio] 32.95 kg/m2 Ibis A Myra Work Phone: [facility] 250 DO Work Phone: 09-11-2022 08:57-0500 Body surface area Derived from formula 1.97 m2 Ibis A Myra Work Phone: [facility] 250 DO Work Phone: 09-11-2022 08:57-0500 Body weight 89.81 kg Ibis A Myra Work Phone: [facility] 250 DO Work Phone: 09-11-2022 08:57-0500 Diastolic blood pressure 68 mm[Hg] Ibis A Myra Work Phone: [facility] 250 DO Work Phone: 09-11-2022 08:57-0500 Heart rate 74 /min Ibis A Myra Work Phone: [facility] DO Work Phone: 09-11-2022 08:57-0500 Systolic blood pressure 102 mm[Hg] Ibis A Myra Work Phone: [facility] 250 DO Work Phone: 07-31-2022 10:14-0500 Body weight 89.81 kg Irvin Hanna MD Work Phone: [facility] 07-31-2022 10:14-0500 Diastolic blood pressure 71 mm[Hg] Irvin Hanna MD Work Phone: [facility] 07-31-2022 10:14-0500 Heart rate 92 /min Irvin Hanna MD Work Phone: [facility] 07-31-2022 10:14-0500 Systolic blood pressure 109 mm[Hg] Irvin Hanna MD Work Phone: [facility] 07-21-2022 07:27-0400 Body height 165.1 cm Ibis A Myra Work Phone: [facility] DO Work Phone: 07-21-2022 07:27-0400 Body mass index (BMI) [Ratio] 33.45 kg/m2 Ibis A Myra Work Phone: [facility] DO Work Phone: 07-21-2022 07:27-0400 Body surface area Derived from formula 1.98 m2 Ibis A Myra Work Phone: [facility] DO Work Phone: 07-21-2022 07:27-0400 Body weight 91.17 kg Ibis A Myra Work Phone: [facility] DO Work Phone: 07-21-2022 07:27-0400 Diastolic blood pressure 72 mm[Hg] Ibis A Myra Work Phone: [facility] DO Work Phone: 07-21-2022 07:27-0400 Heart rate 64 /min Ibis A Myra Work Phone: [facility] DO Work Phone: 07-21-2022 07:27-0400 Systolic blood pressure 106 mm[Hg] Ibis A Myra Work Phone: [facility] DO Work Phone: 07-10-2022 10:45-0400 Body height 165.1 cm Ibis A Myra Work Phone: [facility] DO Work Phone: 07-10-2022 10:45-0400 Body mass index (BMI) [Ratio] 32.95 kg/m2 Ibis A Myra Work Phone: [facility] 250 DO Work Phone: 07-10-2022 10:45-0400 Body surface area Derived from formula 1.97 m2 Ibis A Myra Work Phone: [facility] 250 DO Work Phone: 07-10-2022 10:45-0400 Body weight 89.81 kg Ibis A Myra Work Phone: [facility] DO Work Phone: 07-10-2022 10:45-0400 Diastolic blood pressure 70 mm[Hg] Ibis A Myra Work Phone: [facility] 250 DO Work Phone: 07-10-2022 10:45-0400 Heart rate 76 /min Ibis A Myra Work Phone: [facility] 250 DO Work Phone: 07-10-2022 10:45-0400 Systolic blood pressure 104 mm[Hg] Ibis A Myra Work Phone: [facility] 250 DO Work Phone: 06-01-2022 11:36-0400 Body height 165.1 cm [employer] SUPER[employer]OR-C Ibis Myra Work Phone: [facility] 06-01-2022 11:36-0400 Body temperature 100 [degF] [employer] SUPER[employer]OR-C Ibis Myra Work Phone: [facility] 06-01-2022 11:36-0400 Body weight 88.4 kg [employer] SUPER[employer]OR-C Ibis Myra Work Phone: [facility] 06-01-2022 11:36-0400 Diastolic blood pressure 68 mm[Hg] [employer] SUPERVISOR-C Ibis Myra Work Phone: [facility] 06-01-2022 11:36-0400 Heart rate 99 /min [employer] SUPER[employer]-C Ibis Myra Work Phone: [facility] 06-01-2022 11:36-0400 Respiratory rate 18 /min [employer] SUPER[employer] Ibis Myra Work Phone: [facility] 06-01-2022 11:36-0400 SaO2% (BldA) [Mass fraction] 97 % [employer] SUPER[employer]OR-C Ibis Myra Work Phone: [facility] 06-01-2022 11:36-0400 Systolic blood pressure 121 mm[Hg] [employer] SUPERVISOR-C Ibis Mrya Work Phone: [facility] 05-18-2022 09:42-0400 Body height 165.1 cm Ibis A Myra Work Phone: [facility] DO Work Phone: 05-18-2022 09:42-0400 Body mass index (BMI) [Ratio] 31.95 kg/m2 Ibis A Myra Work Phone: [facility] 250 DO Work Phone: 05-18-2022 09:42-0400 Body surface area Derived from formula 1.94 m2 Ibis A Myra Work Phone: [facility] 250 DO Work Phone: 05-18-2022 09:42-0400 Body weight 87.09 kg Ibis A Myra Work Phone: [facility] 250 DO Work Phone: 05-18-2022 09:42-0400 Diastolic blood pressure 74 mm[Hg] Ibis A Myra Work Phone: [facility] 250 DO Work Phone: 05-18-2022 09:42-0400 Heart rate 72 /min Ibis A Myra Work Phone: [facility] DO Work Phone: 05-18-2022 09:42-0400 Systolic blood pressure 102 mm[Hg] Ibis A Myra Work Phone: [facility] DO Work Phone: 03-23-2022 09:11-0400 Diastolic blood pressure 80 mm[Hg] Ibis A Myra Work Phone: [facility] DO Work Phone: 03-23-2022 09:11-0400 Systolic blood pressure 110 mm[Hg] Ibis A Myra Work Phone: [facility] 250 DO Work Phone: 03-23-2022 09:06-0400 Body height 166.37 cm Ibis A Myra Work Phone: [facility] 250 DO Work Phone: 03-23-2022 09:06-0400 Body mass index (BMI) [Ratio] 31.3 kg/m2 Ibis A Myra Work Phone: [facility] DO Work Phone: 03-23-2022 09:06-0400 Body surface area Derived from formula 1.95 m2 Ibis A Myra Work Phone: [facility] 250 DO Work Phone: 03-23-2022 09:06-0400 Body weight 86.64 kg Ibis A Myra Work Phone: [facility] 250 DO Work Phone: 03-23-2022 09:06-0400 Diastolic blood pressure 76 mm[Hg] Ibis A Myra Work Phone: [facility] 250 DO Work Phone: 03-23-2022 09:06-0400 Heart rate 66 /min Ibis A Myra Work Phone: [facility] 250 DO Work Phone: 03-23-2022 09:06-0400 Systolic blood pressure 118 mm[Hg] Ibis Renteria Work Phone: [facility] 250 DO Work Phone: 01-25-2022 08:16-0400 Body height 165.1 cm Irivn Hanna MD Work Phone: [facility] 01-25-2022 08:16-0400 Body weight 86.36 kg Irvin Hanna MD Work Phone: [facility] 01-25-2022 08:16-0400 Diastolic blood pressure 83 mm[Hg] Irvin Hanna MD Work Phone: [facility] 01-25-2022 08:16-0400 Heart rate 71 /min Irvin Hanna MD Work Phone: [facility] 01-25-2022 08:16-0400 Systolic blood pressure 116 mm[Hg] Irvin Hanna MD Work Phone: [facility] 01-10-2022 12:45-0400 Body height 165.1 cm Ok Mckeon Other [employer] Other 01-10-2022 12:45-0400 Body mass index (BMI) [Ratio] 31.61 kg/m2 Ok Mckeon Other [employer] Other 01-10-2022 12:45-0400 Body temperature 97.8 [degF] Ok Mckeon Other [employer] Other 01-10-2022 12:45-0400 Body weight 86.18 kg Ok Mckeon Other [employer] Other 01-10-2022 12:45-0400 Diastolic blood pressure 80 mm[Hg] Ok Mckeon Other [employer] Other 01-10-2022 12:45-0400 SaO2% (BldA) [Mass fraction] 96 % Ok Whitneyelaine Other [employer] Other 01-10-2022 12:45-0400 Systolic blood pressure 120 mm[Hg] Ok Christydahlia Other [employer] Other 10-10-2021 15:50-0500 Body height 165.1 cm Christina Portia Other [employer] Other 10-10-2021 15:50-0500 Body mass index (BMI) [Ratio] 31.61 kg/m2 Christina Portia Other [employer] Other 10-10-2021 15:50-0500 Body temperature 97 [degF] Christina Portia Other [employer] Other 10-10-2021 15:50-0500 Body weight 86.18 kg Christina Portia Other [employer] Other 10-10-2021 15:50-0500 Diastolic blood pressure 76 mm[Hg] Christina Portia Other [employer] Other 10-10-2021 15:50-0500 Respiratory rate 18 /min Christina Portia Other [employer] Other 10-10-2021 15:50-0500 SaO2% (BldA) [Mass fraction] 99 % Christina Portia Other [employer] Other 10-10-2021 15:50-0500 Systolic blood pressure 123 mm[Hg] Christina Lambmond Other [employer] Other Encounters Encounter Date Encounter Type Care Provider Facility Start: 08-15-2024 End: 08-15-2024 Orders Only Sammi Green RN [facility] Comment on above: Dichorionic diamniot ic twin in second trimester (Primary Dx); POTS (postural orthostatic tachycardia syndrome); Asthma during ; 20 weeks gestation of Start: 08-13-2024 End: 08-13-2024 Office outpatient new 45 minutes Muna Lenz MD Work Phone: [facility] Comment on above: Dichorionic diamniot ic twin in second trimester (Primary Dx); POTS (postural orthostatic tachycardia syndrome); Asthma during ; 20 weeks gestation of Start: 08-13-2024 End: 08-13-2024 ambulatory OSEI R [facility] Start: 08-11-2024 End: 08-13-2024 Clinis[facility] Result Encounter Generic External Data Provider [facility] External Department Unsolicited Start: 08-11-2024 End: 08-13-2024 Clinisync Result Encounter Generic External Data Provider [facility] External Department Unsolicited Start: 08-06-2024 End: 08-06-2024 ambulatory Jyoti Dickey PA-C Work Phone: Neurology Comment on above: Need to talk Start: 08-05-2024 End: 08-05-2024 Bamboo flowsheet Flori TOLBERT Work Phone: [facility] Start: 08-05-2024 End: 08-14-2024 Bamboo flowsheet Flori TOLBERT Work Phone: [facility] Start: 08-05-2024 End: 08-14-2024 Clinisync Result Encounter Flori TOLBERT Work Phone: [facility] External Department Unsolicited Start: 08-05-2024 End: 08-07-2024 External Result Encounter Flori TOLBERT Work Phone: [facility] External Department Unsolicited Start: 08-05-2024 End: 08-05-2024 Patient encounter procedure Flori TOLBERT Work Phone: [facility] Work Phone: Start: 08-05-2024 End: 08-05-2024 Periodic preventive med est patient 18-39 yrs Flori TOLBERT Work Phone: [facility] Comment on above: Well woman exam with routine gynecological exam; Second trimester ; Vaginal discharge; STD exposure; Leg cramping; Heartburn Start: 08-05-2024 End: 08-05-2024 ambulatory FLORI GIL Not Available Start: 07-24-2024 End: 07-24-2024 ambulatory Celeste Watson [facility] Start: 07-07-2024 End: 07-07-2024 Chart abstracting Hammad Hatch MD Work Phone: Maternal- Medicine at [facility] Start: 07-03-2024 End: 07-03-2024 flow sheet Flori TOLBERT Work Phone: [facility] Comment on above: Second trimester pre gnancy; 14 weeks gestation of Start: 07-03-2024 End: 07-03-2024 ambulatory FLORI GIL Not Available Start: 07-03-2024 End: 07-03-2024 Bamboo flowsheet Flori TOLBERT Work Phone: [facility] Start: 07-03-2024 End: 07-03-2024 Bamboo flowsheet Flori TOLBERT Work Phone: [facility] Start: 07-02-2024 End: 07-02-2024 ambulatory JOIE SEAMAN Facility:[facility] Comment on above: POTS (postural ortho static tachycardia syndrome) (Primary Dx); Near syncope Start: 07-02-2024 End: 07-02-2024 Telemedicine consultation with patient Joie Seaman DIRECTOR INFORMATION SECURITY.HAMZAH Work Phone: Neurology Start: 06-10-2024 End: 06-11-2024 ambulatory Jyoti Dickey PA-C Work Phone: Neurology Comment on above: Start: 06-04-2024 End: 06-04-2024 ambulatory OSEI MALIK Not Available Start: 05-23-2024 End: 05-23-2024 ambulatory CELESTE FIGUEROAKES Not Available Start: 05-20-2024 End: 05-20-2024 ambulatory MAURISIO GASTON Not Available Start: 04-12-2024 End: 04-12-2024 ambulatory Celeste Michellekes Facility:[facility] Start: 04-12-2024 End: 04-12-2024 Patient encounter procedure Celeste [facility] Start: 03-25-2024 Patient encounter status Flori TOLBERT Work Phone: [facility] Start: 03-25-2024 End: 03-25-2024 ambulatory JB BONDA Not Available Start: 03-20-2024 End: 03-20-2024 ambulatory Jyoti Noble BARNETT Work Phone: Neurology Comment on above: POTS (postural ortho static tachycardia syndrome) (Primary Dx) Start: 03-20-2024 End: 03-20-2024 Telemedicine consultation with patient Jyoti Noble BARNETT Work Phone: Neurology Start: 03-14-2024 End: 03-14-2024 ambulatory Celesteverenice Watson Facility:[facility] Start: 03-14-2024 End: 03-14-2024 Patient encounter procedure Celeste [facility] Start: 02-26-2024 End: 02-26-2024 ambulatory JB Charlton NAZIA Not Available Start: 01-22-2024 ambulatory CORPORATE FITNESS PROGRAM COORDINATOR Krista Green ity:JACOB Chaudhary Start: 01-01-2024 End: 01-01-2024 ambulatory CELESTE WATSON Not Available Start: 12-21-2023 End: 12-21-2023 ambulatory CELESTE RINKES Not Available Start: 12-11-2023 End: 12-11-2023 ambulatory CORPORATE FITNESS PROGRAM COORDINATOR Krista Wall Facility[facility] Neena Start: 12-11-2023 End: 12-11-2023 ambulatory CELESTE WATSON Not Available Start: 11-30-2023 End: 11-30-2023 ambulatory JYOTI DICKEY Facility:[facility] Start: 11-30-2023 End: 11-30-2023 Patient encounter procedure Jyoti Gallowayur PA-C Work Phone: Neurology Comment on above: POTS (postural ortho static tachycardia syndrome) (Primary Dx) Start: 11-12-2023 End: 11-12-2023 Patient encounter procedure Autonomic 2 Neur Main [facility] Start: 11-12-2023 End: 11-12-2023 ambulatory AURORA SANTIAGO Neurology Comment on above: Procedure Start: 10-10-2023 End: 10-10-2023 ambulatory AURORA SANTIAGO Facility:[facility] Start: 07-24-2023 End: 07-24-2023 ambulatory Jocelin FELIX Facility:[facility] Start: 07-20-2023 Telephone encounter Arin Tinajero RN [facility] [place] Comment on above: Referral Follow-up Start: 07-10-2023 End: 07-10-2023 ambulatory JOSE ARMANDO GREY Facility:[facility] Start: 07-10-2023 End: 07-10-2023 Office outpatient new 30 minutes Jose Armando Grey DO Work Phone: [facility] [place] Comment on above: Chronic pain of righ t knee (Primary Dx); Tendinopathy of gluteal region Start: 07-06-2023 Orders Only Jose Armando Grey DO Work Phone: Orthopaedics Comment on above: Right knee pain, uns pecified chronicity (Primary Dx) Start: 07-05-2023 End: 07-05-2023 ambulatory [employer] DELIV[employer]IVERS SUPERVISOR-C Ibis Renteria Work Phone: [facility] Work Phone: Start: 07-05-2023 End: 07-05-2023 Patient encounter procedure [employer] DELIV[employer]IVERS SUPERVISOR-C Ibis Renteria Work Phone: [facility]-Flu Vaccine Start: 06-13-2023 Office outpatient vi sit 15 minutes Ibis Limer Work Phone: -[facility] 600 DO Work Phone: Start: 06-13-2023 ambulatory Tabatha Cota Facility:1 [id number] Start: 06-08-2023 End: 06-08-2023 Emergency department patient visit [employer]IV[employer] SUPERVISOR-C Ibis Limer Work Phone: [facility] Work Phone: Start: 04-25-2023 End: 04-25-2023 ambulatory [employer] DELIVERY DRIVERS SUPERVISOR-C Ibiseren Arenasncer Work Phone: [facility] Work Phone: Start: 04-25-2023 End: 04-25-2023 Departed Referred [employer] DELIVERY DRIVERS SUPERVISOR-C Ibis Arenasncer Work Phone: [facility] [address] Work Phone: Start: 03-14-2023 ambulatory CHAN MUÑIZ Fa cility:[facility] Start: 01-18-2023 End: 01-18-2023 ambulatory [employer] DELIV[employer]IVERS SUPERVISOR-C Ibis Maggy Myra Work Phone: [facility] Work Phone: Start: 01-18-2023 End: 01-18-2023 Departed Referred [employer] DELIV[employer]IVERS SUPERVISOR-C Ibis Myra Work Phone: [facility] [address] Work Phone: Start: 12-28-2022 End: 12-28-2022 Patient encounter procedure Irvin Hanna MD Work Phone: Rheumatology Comment on above: Pain and swelling of knee, right (Primary Dx); Joint stiffness Start: 10-31-2022 Chart Update Ibis Ely cer Work Phone: [facility] 250 DO Work Phone: Start: 10-16-[address] Melodie Alfonso ty:[id number] Start: 10-13-2022 Current tobacco non- user cad cap copd pv dm Ibis A Myra Work Phone: [facility] 320 DO Work Phone: Start: 10-13-[address] Annalee Pierre acility: Start: 09-11-2022 Office outpatient vi sit 15 minutes Ibis A Myra Work Phone: [facility] 250 DO Work Phone: Start: 09-11-2022 Patient encounter procedure Ibis A Myra Work Phone: [facility] 250 DO Work Phone: Start: 09-11-[address] Melodie Alfonso ty: Start: 09-07-2022 Telephone encounter Ibis A Myra Work Phone: [facility] 320 DO Work Phone: Start: 08-27-[address] Annalee Pierre acility: Start: 08-01-2022 AUDIT Ibis Ellis Spen cer [facility]: [facility] Work Phone: Start: 07-31-2022 EVENT EZEKIEL, Provider : HERIBERTO SERRANO QUARRY PLANT CRUSHER OPERATOR 1,[id number], Status: Pen, Time: 11:00 AM Ibis A Myra [facility] Work Phone: Start: 07-31-[address] Annalee Pierre acility: Start: 07-31-2022 End: 07-31-2022 Patient encounter procedure Irvin Hanna MD Work Phone: Rheumatology Comment on above: Pain and swelling of knee, right (Primary Dx); Joint stiffness; Inflammatory arthritis Start: 07-26-2022 ambulatory IBIS MYRA Facilit y:[facility] Start: 07-21-2022 Current tobacco non- user cad cap copd pv dm Ibis A Myra Work Phone: [facility] 320 DO Work Phone: Start: 07-21-[address] Annalee Maza F acility: Start: 07-10-2022 Office outpatient vi sit 25 minutes Ibis A Myra Work Phone: [facility] 250 DO Work Phone: Start: 07-10-2022 Patient encounter procedure Ibis A Myra Work Phone: -[facility] 250 DO Work Phone: Start: 07-10-[address] Melodie Alfonso ty: Start: 06-15-2022 Telephone encounter Ibis A Myra Work Phone: [facility] 250 DO Work Phone: Start: 06-12-2022 End: 06-12-[address] Annalee Maza Facility:[id number] Start: 06-05-2022 Patient encounter procedure Ibis A Myra Work Phone: [id number] [facility] Work Phone: Start: 06-01-2022 End: 06-01-2022 Emergency department patient visit [employer] DELIVERY [employer]IVERS SUPERVISOR-C Ibis Myra Work Phone: [facility] Start: 05-18-2022 Office outpatient vi sit 25 minutes Ibis A Myra Work Phone: [facility] 250 DO Work Phone: Start: 05-18-2022 Patient encounter procedure Ibis A Myra Work Phone: [facility] 250 DO Work Phone: Start: 05-08-2022 End: 05-08-2022 Patient encounter procedure [employer] DELIVERY DRIVERS SUPERVISOR-C Ibis Myra Work Phone: [facility] Start: 05-03-2022 Result Review Ibis A Spen cer Work Phone: [facility] 250 DO Work Phone: Start: 05-03-2022 SURGNON, Provider: María Elena Freire, Status: Pen, Time: 10:00 AM Ibis A Myra Work Phone: [facility] 250 DO Work Phone: Start: 05-03-2022 End: 05-03-2022 Patient encounter procedure [employer] DELIVERY DRIVERS SUPERVISOR-C Ibis Myra Work Phone: [facility] Start: 03-28-2022 EVENT EZEKIEL, Provider : HERIBERTO SINGH QUARRY PLANT CRUSHER OPERATOR 1,[id number], Status: Pen, Time: 8:00 AM Ibis A Myra Work Phone: [facility] 250 DO Work Phone: Start: 03-28-2022 Patient encounter procedure Ibis A Myra Work Phone: [facility] 250 DO Work Phone: Start: 03-26-2022 Chart Update Ibis A Spen cer Work Phone: [facility] 250 DO Work Phone: Start: 03-24-2022 End: 03-24-2022 Patient encounter procedure [employer] DELIV[employer]IVERS SUPERVISOR-C Ibis Myra Work Phone: [facility]Lab [facility] Start: 03-23-2022 Office consultation new/estab patient 60 min Ibis A Myra Work Phone: [facility] 250 DO Work Phone: Start: 03-23-2022 Office outpatient ne w 45 minutes Ibis Arenasncer Work Phone: [facility] Work Phone: Start: 02-02-2022 Telephone encounter Irvin shannon MD Work Phone: Rheumatology Comment on above: Orders Start: 01-25-2022 End: 01-25-2022 Patient encounter procedure Irvin Hanna MD Work Phone: Rheumatology Comment on above: Pain and swelling of knee, right (Primary Dx); Joint stiffness Start: 01-10-2022 End: 01-10-2022 ambulatory Ok Mckeon Other [employer] Other Start: 01-10-2022 Office outpatient ne w 45 minutes Ok Mckeon [facility] Start: 10-10-2021 End: 10-10-2021 ambulatory Christina Pearce Other [employer] Other Start: 10-10-2021 Office outpatient vi sit 15 minutes Christina Pearce [facility] Procedures Date Procedure Procedure Detail Performing Clinician Start: 08-13-2024 Us preg uterus after 1st trimest 09/24 gestation Osei Malik Work Phone: Start: 08-11-2024 AFP, SERUM, OPEN SPI NA BIFIDA Flori TOLBERT Work Phone: Start: 08-05-2024 RECURRENT VAGINITIS (HTRX) Flori TOLBERT Work Phone: Start: 08-05-2024 Urnls dip stick/tabl et rgnt non-auto w/o micrscp Flori TOLBERT Work Phone: Start: 08-05-2024 IGP,APTIMA HPV,AGE GDLN Generic External Data Provider Start: 07-03-2024 Urnls dip stick/tabl et rgnt non-auto w/o micrscp Flori TOLBERT Work Phone: Start: 05-24-2024 Blood count complete automated Not In System Ref Prov Start: 07-10-2023 [facility] Pr ovider Historical Start: 06-08-2023 Plain chest X-ray [employer] DELIV[employer]IVERS SUPERVISOR-C Ibis Renteria Work Phone: Start: 01-18-2023 Plain chest X-ray [employer] DELIV[employer]IVERS SUPERVISOR-C Ibis Limer Work Phone: Start: 05-03-2022 Plain chest X-ray [employer] DELIV[employer]IVERS SUPERVISOR-C Ibis Renteria Work Phone: Start: 08-05-2021 Arthroscopy of knee Lorna Watson Arthroscopy of knee Ibis Ellis Myra Work Phone: Cryotherapy of warts Rajeev Watson Extraction of wisdom tooth Ibis Ellis Myra Work Phone: SARS-CoV-2, Influenz a & RSV (PCR) [employer] DELIV[employer]IVERS SUPERVISOR-C Ibis Limer Work Phone: Tonsillectomy and adenoidectomy Ibis Limer Work Phone: Tonsillectomy and adenoidectomy Celeste Watson NEGATED: Highlighted row has not occurred! Total colonoscopy Ibis Ellis Myra Work Phone: Plan of Treatment Date Care Activity Detail Author Start: 03-25-2034 DTaP,Tdap and Td Vac cines (8 - Td or Tdap) DTaP,Tdap and Td Vaccines (8 - Td or Tdap) [employer] Start: 03-25-2034 Urine microalbumin profile DTaP,Tdap,Td Vaccine (8 - Td or Tdap) [facility] Start: 08-15-2025 End: 08-15-2025 US MFM with or without consult US MFM with or without consult Imaging Routine Dichorionic diamniotic twin in second trimester POTS (postural orthostatic tachycardia syndrome) Asthma during 20 weeks gestation of Expected: 08/15/2025 (Approximate), Expires: 08/15/2025 [employer] Work Phone: Comment on above: Expected: 08/15/2025 (Approximate), Expires: 08/15/2025 Start: 08-13-2025 Adult BMI Screening Adult BMI Screen ing [facility] Start: 08-13-2025 Tobacco Screening Tobacco Screening [facility] Start: 09-23-2024 End: 09-23-2024 Patient encounter procedure 09/23/2024 1:00 PM EST Appointment [facility] [address] [place] [address] [facility] Start: 09-03-2024 End: 09-03-2024 Patient encounter procedure 09/03/2024 2:40 PM EST Routine [facility] [address] [facility] [address] [address] Osei Malik, [address] [place] [address] [facility] Start: 09-02-2024 End: 09-02-2024 ambulatory 09/02/2024 12:15 PM EST [facility] [address] [place] [address] Jyoti Dickey PA-C [address] [place] [address] F/u Neurology Comment on above: F/u Start: 09-02-2024 End: 09-02-2024 ambulatory 09/02/2024 10:45 AM EST [facility] [address] [place] [address] Jyoti Dickey PA-C [address] [place] [address] F/u Neurology Comment on above: F/u Start: 08-13-2024 End: 08-13-[address] [facility] Start: 08-05-2024 End: 02-02-2025 Alpha fetoprotein, maternal Alpha fetoprotein, maternal Lab Routine Second trimester Expected: 08/05/2024 (Approximate), Expires: 02/02/2025 [facility] Comment on above: Expected: 08/05/2024 (Approximate), Expires: 02/02/2025 Start: 08-05-2024 End: 08-05-2024 Patient encounter procedure 08/05/2024 8:50 AM EST Routine [facility] [address] [facility] [id number] Osei Malik DO [address] [place] [address] [facility] Start: 07-03-2024 End: 07-03-2024 Patient encounter procedure 07/03/2024 2:30 PM EDT Routine [facility] [address] [facility] [address] [id number] Flori Gil PA [address] [place], [place] [id number] Arrived [facility] Comment on above: Arrived Start: 05-25-2024 Covid-19 Vaccine ( season) Covid-19 Vaccine ( season) [facility] Start: 05-25-2024 Covid-19 Vaccine ( season) Covid-19 Vaccine ( season) [facility] Start: 05-25-2024 Influenza vaccination C [facility] Start: 04-20-2024 Urine microalbumin profile DTaP,Tdap,Td Vaccine (7 - Td or Tdap) [facility] Start: 09-24-2023 Depression Assessment Depression Ass essment [facility] Start: 05-25-2023 Covid-19 Vaccine ( season) Covid-19 Vaccine ( season) [facility] Start: 05-25-2023 Influenza vaccination C [facility] Start: 04-25-2023 [facility] Start: 04-06-2023 FUV, Provider: Annalee Maza, Status: Pen, Time: 2:40 PM FUV, Provider: Annalee Maza, Status: Pen, Time: 2:40 PM -[facility] 320 DO Work Phone: Start: 2022 PAP TESTING PAP TESTING [facility] Start: 2022 Screening for malign ant neoplasm of cervix [facility] Start: 10-13-2022 FUV, Provider: Annalee Maza, Status: Pen, Time: 9:20 AM FUV, Provider: Annalee Maza, Status: Pen, Time: 9:20 AM [facility] 320 DO Work Phone: Start: 09-24-2022 DEPRESSION ASSESSMENT DEPRESSION ASS ESSMENT [facility] Start: 09-11-2022 FUV, Provider: Melodie Alcaraz, Status: Pen, Time: 9:30 AM FUV, Provider: eMlodie Alcaraz, Status: Pen, Time: 9:30 AM [facility] 250 DO Work Phone: Start: 09-11-2022 EVENT EZEKIEL, Provider : HERIBERTO SINGH QUARRY PLANT CRUSHER OPERATOR [id number], Status: Pen, Time: 8:30 AM EVENT EZEKIEL, Provider: HERIBERTO SINGH QUARRY PLANT CRUSHER OPERATOR 1,[id number], Status: Pen, Time: 8:30 AM [facility] 320 DO Work Phone: Start: 08-14-2022 EVENT EZEKIEL, Provider : HERIBERTO LEMON QUARRY PLANT CRUSHER OPERATOR [id number], Status: Pen, Time: 10:00 AM EVENT EZEKIEL, Provider: HERIBERTO LEMON QUARRY PLANT CRUSHER OPERATOR 1,[id number], Status: Pen, Time: 10:00 AM [facility] 250 DO Work Phone: Start: 07-21-2022 NPVRFRL, Provider: Annalee Maza, Status: Pen, Time: 7:20 AM NPVRFRL, Provider: Annalee Maza, Status: Pen, Time: 7:20 AM -[facility] 250 DO Work Phone: Start: 07-10-2022 FUV, Provider: Melodie Alcaraz, Status: Pen, Time: 10:45 AM FUV, Provider: Melodie Alcaraz, Status: Pen, Time: 10:45 AM [facility] 250 DO Work Phone: Start: 06-05-2022 [facility], Provider: Annalee Maza, Status: Pen, Time: 10:00 AM [facility], Provider: Annalee Maza, Status: Pen, Time: 10:00 AM [facility] 250 DO Work Phone: Start: 05-25-2022 Influenza vaccination [facility] Start: 05-18-2022 FUV, Provider: Melodie Alcaraz, Status: Pen, Time: 9:15 AM FUV, Provider: Melodie Alcaraz, Status: Pen, Time: 9:15 AM [facility] 250 DO Work Phone: Start: 05-08-2022 End: 05-08-2022 [facility] Start: 05-03-2022 SURGNON, Provider: María Elena Freire, Status: Pen, Time: 10:00 AM SURGNONUH, Provider: María Elena Freire, Status: Pen, Time: 10:00 AM -[facility] 250 DO Work Phone: Start: 03-28-2022 EVENT EZEKIEL, Provider : HERIBERTO SINGH QUARRY PLANT CRUSHER OPERATOR [id number], Status: Pen, Time: 8:00 AM EVENT EZEKIEL, Provider: HERIBERTO SINGH QUARRY PLANT CRUSHER OPERATOR 1,[id number], Status: Pen, Time: 8:00 AM -[facility] 250 DO Work Phone: Start: 01-25-2022 End: 03-27-2022 Chronic hepatitis differentiation between hepatitis B and C virus panel - Serum or Plasma [facility] Work Phone: Comment on above: Expected: 01/25/2022 , Expires: 03/27/2022 Start: 01-25-2022 End: 03-27-2022 Complement C1 esterase inhibitor [Mass/volume] in Serum or Plasma [facility] Work Phone: Comment on above: Expected: 01/25/2022 , Expires: 03/27/2022 Start: 01-25-2022 End: 03-27-2022 Complement C2 [Mass/volume] in Serum or Plasma [facility] Work Phone: Comment on above: Expected: 01/25/2022 , Expires: 03/27/2022 Start: 09-24-2021 DEPRESSION ASSESSMENT DEPRESSION ASS ESSMENT [facility] Start: 06-16-2021 COVID-19 VACCINE (3 - Booster for Pfizer series) COVID-19 VACCINE (3 - Booster for Pfizer series) [facility] Start: 03-11-2021 COVID-19 VACCINE (3 - Booster for Pfizer series) COVID-19 VACCINE (3 - Booster for Pfizer series) [facility] Start: 02-11-2021 COVID-19 VACCINE (3 - Pfizer risk series) COVID-19 VACCINE (3 - Pfizer risk series) [facility] Start: 2020 SHINGRIX VACCINE (1 of 2) VANG GRIX VACCINE (1 of 2) [facility] Start: 2020 Urine microalbumin profile [facility] Start: 12-03-2019 Adult BMI Follow Up Plan Adult BMI Follow Up Plan [facility] Start: 12-03-2019 Adult BMI Screening Adult BMI Screen ing [facility] Start: 12-03-2019 Anxiety Screening Anxiety Screening [facility] Start: 12-03-2019 CHLAMYDIA SCREENING (18-24) CHLAMYDIA SCREENING (18-24) [facility] Start: 12-03-2019 Depression Screening Depression Scre ening [facility] Start: 12-03-2019 GC (GONORRHEA) SCREE NINI (18-24) GC (GONORRHEA) SCREENING (18-24) [facility] Start: 12-03-2019 HEPATITIS C SCREENING HEPATITIS C SC JESSICA [facility] Start: 12-03-2019 HIV SCREENING HIV SCREENING [facility] Start: 12-03-2019 HIV screening HIV Screening [facility] Start: 03-11-2020 Screening for Chlamy taylor trachomatis Chlamydia Screening (18-24) [facility] Start: 2017 Meningococcal B Vacc ine: Consider Based On Risk (1 of 2 - Patient Seeks Protection) Meningococcal B Vaccine: Consider Based On Risk (1 of 2 - Patient Seeks Protection) [facility] Start: 12-03-2015 PEDS TO ADULT TRANSI TION ANNUAL ASSESSMENT PEDS TO ADULT TRANSITION ANNUAL ASSESSMENT [facility] Start: 2013 Adult depression screening assessment DEPRESSION SCREENING [facility] Start: 2013 PEDS TO ADULT TRANSI TION INITIAL DISCUSSION PEDS TO ADULT TRANSITION INITIAL DISCUSSION [facility] Start: 2013 Tobacco Screening Tobacco Screening [facility] Start: 2012 HPV VACCINE (1 - 2-d ose series) HPV VACCINE (1 - 2-dose series) [facility] Start: 12-03-2011 MENINGOCOCCAL B: Con physician internist based on risk (1 of 2 - Risk Bexsero 2-dose series) MENINGOCOCCAL B: Consider based on risk (1 of 2 - Risk Bexsero 2-dose series) [facility] Start: 2010 HPV Vaccine (1 - 2-d ose series) HPV Vaccine (1 - 2-dose series) [facility] Start: 2010 HPV VACCINES (1 - 2- dose series) HPV VACCINES (1 - 2-dose series) [facility] Start: 2008 DTaP/Tdap/Td VACCINE S (1 - Tdap) DTaP/Tdap/Td VACCINES (1 - Tdap) [facility] Start: 12-03-2007 PNEUMOCOCCAL (1 - PCV) PNEUMOCOCCAL (1 - PCV) [facility] Start: 2002 MMR VACCINES (1 of 1 - Standard series) MMR VACCINES (1 of 1 - Standard series) [facility] Start: 2002 VARICELLA VACCINES ( 1 of 2 - 2-dose childhood series) VARICELLA VACCINES (1 of 2 - 2-dose childhood series) [facility] Start: 06-04-2002 COVID-19 Vaccine (#1) COVID-19 Vacci ne (#1) [facility] Start: 2001 HEPATITIS B (1 of 3 - 3-dose series) HEPATITIS B (1 of 3 - 3-dose series) [facility] Start: 2001 Hepatitis B Vaccine (1 of 3 - 3-dose series) Hepatitis B Vaccine (1 of 3 - 3-dose series) [facility] Start: 2001 HEPATITIS B VACCINES (1 of 3 - 3-dose series) HEPATITIS B VACCINES (1 of 3 - 3-dose series) [facility] Start: 2001 Screening for Chlamy taylor trachomatis Chlamydia Screening [facility] CHLAMYDIA TRACHOMATI S (GENITO/STI) CHLAMYDIA TRACHOMATIS (GENITO/STI) Lab Routine STD exposure Ordered: 08/05/2024 [facility] Comment on above: Ordered: 08/05/2024 Cytology Cervical or vaginal smear or scraping study Pap Smear Pathology and Cytology Routine Well woman exam with routine gynecological exam Ordered: 08/05/2024 [facility] Comment on above: Ordered: 08/05/2024 Neisseria gonorrhoea e DNA [Presence] in Unspecified specimen by PERFECTO with probe detection Neisseria gonorrhea DNA probe, direct Lab Routine STD exposure Ordered: 08/05/2024 [facility] Comment on above: Ordered: 08/05/2024 Patient Education [facility] Work Phone: Patient referral [facility] Work Phone: SURESWAB(R) ADVANCED VAGINITIS PLUS, TMA SURESWAB(R) ADVANCED VAGINITIS PLUS, TMA Pathology and Cytology Routine Vaginal discharge Ordered: 08/05/2024 [facility] Work Phone: Comment on above: Ordered: 08/05/2024 End: 08-04-2024 XR KNEE GENERAL 4V AP BOTH/PA BOTH/LAT/MERC RIGHT XR KNEE GENERAL 4V AP BOTH/PA BOTH/LAT/MERC RIGHT Radiology Routine Right knee pain, unspecified chronicity 1 Occurrences starting 07/06/2023 until 08/04/2024 [facility] Work Phone: Comment on above: 1 Occurrences starti ng 07/06/2023 until 08/04/2024 [facility] Immunizations Immunization Date Immunization Notes Care Provider Cheryl will 03-25-2024 tetanus toxoid, redu richar diphtheria toxoid, and acellular pertussis vaccine, adsorbed Flori Delmar PA Work Phone: [facility] 07-05-2023 influenza virus vaccine, unspecified formulation Celeste Shirley [facility] 07-05-2023 influenza, injectabl e, quadrivalent, preservative free Flori TOLBERT Work Phone: [facility] 01-14-2021 Pfizer-BioNTech COVID-19 Vacc 30 MCG/0.3ML Intramuscular Suspension Ibis A Myra Work Phone: [facility] Comment on above: Result Comment: 2023: TPVAL 12-24-2020 Pfizer-BioNTech COVID-19 Vacc 30 MCG/0.3ML Intramuscular Suspension Ibis A Myra Work Phone: [facility] Comment on above: Result Comment: 2023: TPVAL 12-11-2017 meningococcal polysaccharide (groups A, C, Y and W-135) diphtheria toxoid conjugate vaccine (MCV4P) Christina Portia Other [facility] [employer] Other 12-11-2017 meningococcal ACWY vaccine, unspecified formulation Celeste Watson [facility] 11-06-2014 human papilloma viru s vaccine, quadrivalent Christina Portia Other [employer] Other 11-06-2014 HPV, unspecified formulation Ibis A Myra Work Phone: [facility] 250 DO Work Phone: 06-26-2014 HPV, unspecified formulation Celeste Rinradha [facility] 06-26-2014 human papilloma viru s vaccine, quadrivalent Christina Portia Other [facility] [employer] Other 04-20-2014 human papilloma viru s vaccine, quadrivalent Christina Portia Other [facility] [employer] Other 04-20-2014 meningococcal polysaccharide (groups A, C, Y and W-135) diphtheria toxoid conjugate vaccine (MCV4P) Christina Portia Other [facility] [employer] Other 04-20-2014 tetanus toxoid, redu richar diphtheria toxoid, and acellular pertussis vaccine, adsorbed Christina Portia Other [facility] 04-20-2014 HPV, unspecified formulation Celeste MichelleOyster [facility] 04-20-2014 meningococcal ACWY vaccine, unspecified formulation Celeste RinOyster [facility] 12-27-2006 diphtheria, tetanus toxoids and acellular pertussis vaccine, unspecified formulation Ibis A Myra Work Phone: [facility] [employer] DO Work Phone: 12-27-2006 DTaP, unspecified formulation Celeste RinOyster [facility] 12-27-2006 measles, mumps, rubella, and varicella virus vaccine Ibis A Myra Work Phone: [facility] 12-27-2006 poliovirus vaccine, inactivated Ibis A Myra Work Phone: [facility] [employer] 250 DO Work Phone: 12-27-2006 poliovirus vaccine, unspecified formulation Celeste RinOyster [facility] 02-06-2003 diphtheria, tetanus toxoids and acellular pertussis vaccine, unspecified formulation Ibis A Myra Work Phone: [place] [address] DO Work Phone: 02-06-2003 DTaP, unspecified formulation Celeste Rinkes [facility] 02-06-2003 haemophilus influenz ae type b vaccine, conjugate unspecified formulation Ibis [employer] Myra Work Phone: [place] [address] DO Work Phone: 02-06-2003 Hib, unspecified formulation Celeste Rinkes [facility] 02-06-2003 measles, mumps and rubella virus vaccine Ibis A Myra Work Phone: [facility] 02-06-2003 varicella virus vaccine Susan ica A Myra Work Phone: [facility] 07-02-2002 diphtheria, tetanus toxoids and acellular pertussis vaccine, unspecified formulation Ibis [employer] Myra Work Phone: [place] [address] DO Work Phone: 07-02-2002 DTaP, unspecified formulation Celeste Rinkes [facility] 07-02-2002 haemophilus influenz ae type b vaccine, conjugate unspecified formulation Ibis A Myra Work Phone: [place] [address] DO Work Phone: 07-02-2002 Hib, unspecified formulation Celeste Rinkes [facility] 07-02-2002 pneumococcal conjuga te vaccine, 7 valent Ibis A Myra Work Phone: [place] [address] DO Work Phone: 07-02-2002 poliovirus vaccine, inactivated Ibis A Myra Work Phone: [place] [address] DO Work Phone: 07-02-2002 poliovirus vaccine, unspecified formulation Celeste RinOyster [facility] 05-19-2002 diphtheria, tetanus toxoids and acellular pertussis vaccine, unspecified formulation Ibis A Myra Work Phone: [place] [address] DO Work Phone: 05-19-2002 DTaP, unspecified formulation Celeste RinOyster [facility] 05-19-2002 haemophilus influenz ae type b conjugate and Hepatitis B vaccine Ibis A Myra Work Phone: [place] [address] DO Work Phone: 05-19-2002 pneumococcal conjuga te vaccine, 7 valent Ibis A Myra Work Phone: [place] [address] DO Work Phone: 05-19-2002 poliovirus vaccine, inactivated Ibis A Myra Work Phone: [place] [address] DO Work Phone: 05-19-2002 poliovirus vaccine, unspecified formulation Celeste Reelhouse [facility] 03-05-2002 diphtheria, tetanus toxoids and acellular pertussis vaccine, unspecified formulation Ibis A Myra Work Phone: [place] [address] DO Work Phone: 03-05-2002 DTaP, unspecified formulation Celeste RinOyster [facility] 03-05-2002 haemophilus influenz ae type b conjugate and Hepatitis B vaccine Ibis A Myra Work Phone: [place] [address] DO Work Phone: 03-05-2002 poliovirus vaccine, inactivated Ibis A Myra Work Phone: [facility] 250 DO Work Phone: 03-05-2002 poliovirus vaccine, unspecified formulation Celeste Watson [facility] 2001 hepatitis B vaccine, pediatric or pediatric/adolescent dosage Ibis A Myra Work Phone: [facility] Payers Date Payer Category Payer Managed Care Other (unspecified) [facility] [id number] 2023 Self-pay [id number] 2023 Unknown [id number] 2021 Private Health Insurance [id number] 2021 Private Health Insurance [id number] [id number] 2020 Private Health Insurance [facility] CHOICE PLUS [id number] 2020-Present [phone] [address] [place] [address] O [id number]. [id number] 2020 Unknown [id number] 2013 Medicaid [facility] MEDICA[facility] [id number] 2013-Present [phone] [address] [place] [address] Medicaid [id number] 2013 Medicaid [id number]. [id number] 2007 Unknown [id number] 2.16.840.1.929720.19 2001 Unknown [id number] 2.16.840.1.746806.3.579.2. 1068 2001 Unknown [id number] 2.16.840.1.852036.3.579.2. 594 2001 Unknown [id number] 2.16.840.1.091022.3.579.2. 594 2001 Unknown [id number] 2.16.840.1.980855.3.579.2. 356 2001 Unknown [id number] 2.16.840.1.124423.3.579.2. 356 2001 Unknown [id number] 2.16.840.1.625382.3.579.2. 356 2001 Unknown [id number] 2.16.840.1.231039.3.579.2. 356 2001 Unknown [id number] 2.16.840.1.644211.3.579.2. 356 2001 Unknown [id number] 2.16.840.1.593974.3.579.2. 356 2001 Unknown [id number] 2.16.840.1.079334.3.579.2. 356 2001 Unknown [id number] 2.16.840.1.132596.3.579.2. 356 2001 Unknown [id number] 2.16.840.1.828331.3.579.2. 727 2001 Unknown [id number] 2.16.840.1.648869.3.579.2. 727 2001 Unknown [id number] 2.16.840.1.438600.3.579.2. 727 2001 Unknown [id number] 2.16.840.1.313076.3.579.2. 727 2001 Unknown [id number] 2.16.840.1.759939.3.579.2. 727 2001 Unknown [id number] 2.16.840.1.266153.3.579.2. 1259 2001 Unknown [id number] 2.16.840.1.255783.3.579.2. 9 2001 Unknown [id number] 2.16.840.1.620464.3.579.2. 1259 2001 Unknown [id number] 2.16.840.1.024713.3.579.2. 9 2001 Unknown [id number] 2.16.840.1.882072.3.579.2. 1259 2001 Unknown [id number] 2.16.840.1.689491.3.579.2. 1259 2001 Unknown [id number] 2.16.840.1.044719.3.579.2. 1259 2001 Unknown [id number] 2.16.840.1.973620.3.579.2. 125 2001 Unknown [id number] 2.16.840.1.505919.3.579.2. 9 2001 Unknown [id number] 2.16.840.1.336130.3.579.2. 1259 2001 Unknown [id number] 2.16.840.1.713069.3.579.2. 1286 2001 Unknown [id number] 2.16.840.1.527549.3.579.2. 1286 Unknown Unknown [place] UDAY/JESSICA [id number] Unknown [id number] 2.16.840.1.660195.3.579.2. 531 Social History Date Type Detail [facility] Work Phone: Start: 2001 Sex Assigned At Not on file C [facility] Start: 01-15-2022 End: 07-31-2022 Exposure to SARS-CoV-2 (event) Not sure [facility] Start: 11-03-2020 End: 12-28-2022 Sex Assigned At [facility] Start: 11-03-2020 End: 12-28-2022 No alcohol use No alcohol use [facility] Comment on above: very rarely soda; Start: 09-20-2019 End: 08-13-2024 Tobacco smoking status AZIS Never smoked tobacco (finding) [facility] Start: 2001 Sex Assigned At Female F [facility] Start: 07-31-2022 End: 08-13-2024 Tobacco use and exposure Smokeless tobacco non-user [facility] Adult Depression Screening Assessment 0 [facility] Start: 09-29-2023 Gender identity Identifies as female gender (finding) [facility] Start: 06-04-2024 End: 08-13-2024 Alcoholic beverage intake Ex-drinker (finding) [facility] Do you belong to any clubs or organizations such as latter-day groups, unions, fraternal or athletic groups, or [...] [facility] Start: 04-05-2024 [facility] Start: 04-27-2015 Sex Female (finding) [facility] NEGATED: Highlighted rowStart: RIKF History of tobacco use Passive smoker [facility] Clinical Notes 09-24-2007 to 08-13-2024 Marycarmen Kennedy RN - 08/13/2024 11:00 AM Jose E Hatch MD - 08/13/2024 11:00 AM ESTTelephone Encounter - Jyoti Dickey PA-C - 08/06/2024 3:41 PM TOMASZ Singer - 08/05/2024 8:50 AM EST Note Date & Type Note Facility 08-13-2024 History of Present illness Narrative Headache/epigastric pain/blurry vision/swelling? Some pain under both breasts. States it feels like burning Cramping/contractions? no Abnormal vaginal discharge? no Spotting/vaginal bleeding? no Loss or gush of fluid like your water may have broken? no Do you have cats at home? Yes-outside Do you change the litter box (reason: risk of toxoplasmosis)? no Genetic testing done this here or other office? no Have you been seen here at [facility] in a previous ? no Recent ER visits or hospitalizations? no Bring blood sugar log or meter with you today? (Please bring them with you for every visit at [facility]) n/a Flu vaccine (Jul-November)? Yes Any concerns that you would like me to mention to the provider today? no [facility] Consult Note Reason For Consult: HPI: Madyson Mai is a 23 y.o. @ 20w4d who presented for consultation from Osei Allen DO regarding Chief Complaint Patient presents with Di Di Twins POTS She reports that she is doing well. She reports normal movements and she denies LOF, contractions, vaginal bleeding, headache, blurry vision, RUQ pain and edema. The primary encounter diagnosis was Dichorionic diamniotic twin in second trimester. Diagnoses of POTS (postural orthostatic tachycardia syndrome), Asthma during , and 20 weeks gestation of were also pertinent to this visit. She has opted out of aneuploidy screening Review of systems: Review of systems was noncontributory Complications: Problem List Items Addressed This Visit None Visit Diagnoses Dichorionic diamniotic twin in second trimester - Primary POTS (postural orthostatic tachycardia syndrome) Asthma during 20 weeks gestation of PMH: Past Medical History: Diagnosis Date Asthma Polycystic ovarian syndrome POTS (postural orthostatic tachycardia syndrome) Sciatica Tension headache PSHIST: Past Surgical History: Procedure Laterality Date ADENOIDECTOMY KNEE ARTHROSCOPY TONSILLECTOMY WART REMOVAL WISDOM TOOTH EXTRACTION OB Hx: OB History Para Term AB Living 1 SAB IAB Ectopic Multiple Live Births # Outcome Date GA Lbr Wyatt/2nd Weight Sex Type Anes PTL Lv 1 Current PREECLAMPSIA SCREEN ([place] Preventive Services Task Force) Patient is at high risk if 1 or more factors present. Incidence of preeclampsia is >= 8%: Prior preeclampsia NO Multiple gestation YES Chronic hypertension NO Type 1 or 2 diabetes NO Renal disease NO Autoimmune disease NO (Lupus, APLS) Patient is at moderate risk is several risk factors are present: Nulliparity NO Obesity (BMI >= 30) YES Family history of preeclampsia NO (Mother, sister) NO Sociodemographic characteristics NO (AA, low socioeconomic status) Age >= 35 NO Personal history factor NO (Previous SGA, adverse outcome, > 10 years from last ) Allergies: Allergies Allergen Reactions Chlorhexidine Itching Fludrocortisone Nausea Midodrine GI Bleeding Oxycodone-Acetaminophen GI Disturbance Prednisolone GI Disturbance Prednisone Dizziness Meds: Prior to Admission medications Medication Sig Start Date End Date Taking? Authorizing Provider no115/iron/folic acid ( 19 ORAL) Take by mouth. Yes Not In System Ref Prov SH: Social History Socioeconomic History Marital status: Spouse name: Not on file Number of children: Not on file Years of education: Not on file Highest education level: Not on file Occupational History Not on file Tobacco Use Smoking status: Never Smokeless tobacco: Never Vaping Use Vaping status: Never Used Substance and Sexual Activity Alcohol use: Not Currently Drug use: Never Sexual activity: Yes Partners: Male Other Topics Concern Not on file Social History Narrative Not on file Social Drivers of Health Financial Resource Strain: Low Risk (02/25/2024) Received from [facility] Overall Financial Resource Strain (CARDIA) Difficulty of Paying Living Expenses: Not very hard Food Insecurity: No Food Insecurity (08/13/2024) Hunger Screening Food Insecurity - Worry: Never True Food Insecurity - Inability: Never True Transportation Needs: No Transportation Needs (02/25/2024) Received from [facility] PRAPARE - Transportation Lack of Transportation (Medical): No Lack of Transportation (Non-Medical): No Physical Activity: Inactive (02/25/2024) Received from [facility] Exercise Vital Sign Days of Exercise per Week: 0 days Minutes of Exercise per Session: 0 min Stress: No Stress Concern Present (02/25/2024) Received from [facility] Citizen Of [place] of Occupational Health - Occupational Stress Questionnaire Feeling of Stress : Only a little Social Connections: Moderately Integrated (02/25/2024) Received from [facility] Social Connection and Isolation Panel [NHANES] Frequency of Communication with Friends and Family: More than three times a week Frequency of Social Gatherings with Friends and Family: Three times a week Attends Restoration Services: More than 4 times per year Active Member of Clubs or Organizations: No Attends Club or Organization Meetings: Patient declined Marital Status: Interpersonal Safety: Not on file Housing Instability: Low Risk (02/25/2024) Received from [facility] Housing Stability Vital Sign Unable to Pay for Housing in the Last Year: No Number of Places Lived in the Last Year: 2 Unstable Housing in the Last Year: No Physical Exam: Vital Signs Vitals: 08/13/24 0922 Weight: 100.6 kg (221 lb 12.8 oz) Height: 165.1 cm (5' 5 ) Physical Exam: Gen: Not in acute distress, alert and oriented. Eyes: Pupils equal and reactive Chest: Nonlabored breathing Cardiac: Pulse was regular on vital signs assessment Abdomen: Gravid Skin/extremities: Appears intact. No visible lesions MS:no visible edema Neuro: No focal deficits Assessment/Plan 23 y.o. @ 20w4d here for consultation regardin. Dichorionic diamniotic twin in second trimester Of note the patient is a twin herself and her significant other has extensive family history of twins. Today ultrasound confirmed a dichorionic diamniotic twin gestation consistent with dating. Ultrasound assessment clearly shows two placentas as well as a twin peak sign (also called the lambda or delta sign) that extends beyond the chorionic surface of the placenta and is indicative of a dichorionic gestation. There was also a thick intervening membrane. I discussed with Ms. Madyson Mai today the increased risks of twin pregnancies in general. We discussed the increased risk of structural anomalies, intrauterine growth restriction, labor and its associated morbidities, preeclampsia, diabetes, and delivery for malpresentation. All women with multifetal gestations, regardless of age, are candidates for routine screening for chromosomal abnormalities. She had opted out of aneuploidy screen. Reviewed that multifetal gestation is considered a high risk for developing preeclampsia during the . Daily low-dose aspirin use in is considered safe and is associated with a low likelihood of serious maternal, or complications, or both, related to use. The [place] [employer] and the Society for Maternal- Medicine support the USPSTF guideline criteria for prevention of preeclampsia. Low-dose aspirin (81 mg/d) prophylaxis is recommended in women at high risk of preeclampsia and should be initiated between 12 weeks and 28 weeks of gestation (optimally before 16 weeks) and continued daily until delivery. Encouraged her to take the enteric-coated form of the 81 mg of the baby aspirin with food. I recommended a comprehensive anatomy ultrasound around 20 weeks gestation. In addition, I recommend serial ultrasounds for growth every 4 weeks after that. testing weekly at 36 weeks if growth remains concordant no other additional testing for uncomplicated dichorionic diamniotic twin gestation. For di/di twins, delivery at 38 weeks is recommended as this is the ilir of morbidity in these twins. Recommendations: Aneuploidy screening declined Baby aspirin 81 mg q.day Detailed anatomic evaluation at 20-22 weeks Serial growth assessments every 4 weeks after the anatomy scan testing weekly at 36 weeks Delivery recommended at 38 weeks or earlier as clinically indicated 2. POTS (postural orthostatic tachycardia syndrome) She follows with Neurology at [facility]. Last visit was on 07/02/2024. External records reviewed. 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 Orthostatic intolerance symptoms include lightheadedness, dizziness, blurring or fading of vision, generalized weakness, fatigue, palpitations, mental clouding, anxiety, nausea, dyspnea, or headache. The physiological changes of can mimic or exacerbate the symptoms of POTS, however most tend toward improvement of symptoms. is associated with a physiolgoical blood volume increase of 40-60%, decrease in systemic vascular resistance with ilir at 20 weeks of gestation and increased cardiac output (both due to increased heart rate and stroke volume). Typically symptoms are exacerbated in first trimester and improve in second/third trimesters. Empiric lifestyle modification with aggressive hydration (~3L/ day) and compression stockings help alleviate POTS symptoms. Additional medical management options include beta blockers (metoprolol, propranolol) to limit orthostatic tachycardia; alpha adrenoreceptor agonist (midodrine) to constrict arteriolar and venous capacitance vessels and thus reduce blood pooling; mineralocorticoid (fludrocortisone) to promote renal sodium reabsorption and increase peripheral vascular resistance and thus expand intravascular volume. Metoprolol crosses the placenta, increases the risk of growth restriction and could potentially increase the risk of adverse events, including bradycardia, hypoglycemia and respiratory depression in the first 48 hours of life. Overall it is well tolerated and safe in , when considering risk/ benefit profile. Midodrine is not recommended in as adverse events were observed in animal reproduction studies. Midodrine should be discontinued and alternative medications trialed. Fludrocortisone is mineral glucocorticoid that does not cross the placenta. Some studies have shown an association between first trimester systemic corticosteroid use and oral clefts. Systemic corticosteroids may also result in decrease growth, though this is conflicting data. In addition, due to increased risk of hypokalemia, monitoring with BMPs is recommended. The current dose of fludrocortisone of 0.15 mg daily is the equivalent of prednisone 5 mg daily, and thus is not suspected to suppress the HPA axis. If patient is requires further uptitration of fludrocortisone, then recommend stress dose steroids at time of delivery. While POTS is not dangerous to the in and of itself, the risk of syncope and maternal trauma increases the risk of placental abruption with or without maternal hemorrhage, labor, delivery. I encouraged her to watch her for symptoms and sit down as quickly as possible to avoid fall. With regard to labor and delivery, symptoms potentially worsen given tachycardia and hemodynamic instability. Early utilization of regional epidural to to decrease pain and avoid blood pressure/heart rate changes in response to pain is recommended, especially since pain is itself a trigger for POTS. SUMMARY/RECOMMENDATION: - encourage hydration and compression stockings -Follow up with her neurologist as scheduled. - echocardiogram, if never been performed - if symptomatic despite lifestyle modifications, recommend cardiology referral - if fludrocortisone use, monitor for hypokalemia with monthly BMP - if fludrocortisone doses increased to above 0.15 mg daily, stress dose steroids at time of delivery is recommended - serial growth ultrasounds q4 weeks in the setting of metoprolol use - consider early epidural in labor to minimize triggering POTS and manage the increased heart rate/volume shifts of labor/delivery 3. Asthma during Asthma has historically been associated with small increased risks of , low weight, mortality, and preeclampsia, but these risks are probably associated with just the undertreatment of asthma. With adequate treatment, asthma is NOT associated with a significant increase in adverse outcomes. has a variable effect on asthma severity, which may improve, worsen, or remain unchanged. In general, about two-thirds get better and one-third get worse. The management of asthma in women should follow the same guidelines as for other patients. We discussed eliminating asthma triggers as a preventive method. A stepwise approach to manage asthma is recommended to gain and maintain control. No specific testing is indicated for good control. 4. 20 weeks gestation of Dichorionic diamniotic twin in second trimester [O30.042] Recommendations: - encourage hydration and compression stockings - Follow up with her neurologist as scheduled. - echocardiogram, if never been performed - if symptomatic despite lifestyle modifications, recommend cardiology referral - if fludrocortisone use, monitor for hypokalemia with monthly BMP - if fludrocortisone doses increased to above 0.15 mg daily, stress dose steroids at time of delivery is recommended - serial growth ultrasounds q4 weeks in the setting of metoprolol use - consider early epidural in labor to minimize triggering POTS and manage the - Aneuploidy screening declined - Baby aspirin 81 mg q.day - Detailed anatomic evaluation follow up in 4-6 weeks - Serial growth assessments every 4 weeks after the anatomy scan - testing - Delivery recommended at 38 weeks or earlier as clinically indicated Plan reviewed with patient. She vocalized understanding all questions answered. The patient is to continue with routine care in your office [facility], the CDC, and other organizations representing maternal and public health professionals recommend that , , and lactating people and those considering receive the COVID-19 vaccination. Vaccination is the best method to reduce maternal and complications of SARS-CoV-2 infection. This document was created with Behalf technology. Though I make every effort to review the dictation as it is transcribed, on occasion the spoken word can be misinterpreted by the technology leading to inappropriate words, phrases, or sentences. This note is addressed to the requesting provider as a consultation for clinical guidance. Specific medical abbreviations are occasionally used and those are generally approved by the [place]?Board of?Obstetrics and?Gynecology?as well as?Loretta s abbreviations. The above plan of care was based solely on the diagnoses for which a consultation was requested. ?More frequent testing may be indicated based on her other medical/obstetrical conditions. The management of other or medical conditions is beyond the scope of requested consultation and will continue to be followed by the primary claim administrator or primary care provider. Thank you for allowing me to participate in her care. Please contact me if you have any concerns. Total time spent was 45 minutes: Preparing to see the patient (e.g., review of tests) Obtaining and/or reviewing separately obtained history Performing a medically appropriate examination and/or evaluation Counseling and educating the patient/family/caregiver Ordering medications, tests, or procedures Referring and communicating with other health pet care associate (not separately reported) Documenting clinical information in the electronic or other health record Independently interpreting results (not separately reported) and communicating results to the patient/family/caregiver Care coordination (not separately reported) [facility] Telephone encounter Note Can we have her schedule for a follow up appointment. Can be virtual or in person. Thanks, AM [facility] Work Phone: 08-06-2024 Miscellaneous Notes Can we have her schedule for a follow up appointment. Can be virtual or in person. Thanks, AM documented in this encounter [facility] 08-05-2024 History of Present illness Narrative Reason for Appointment: Patient ID: Madyson Mai is a 23 y.o. female who presents for Well Women Visit, Routine Visit, and STI Screening Patient presents today for Annual Exam. and Return OB appointment. MEDICATIONS Current Outpatient Medications [...] Onset Diabetes Maternal Grandmother Hypertension Maternal Grandfather John Hypertension Mother's Sister Vanessa Lung cancer Maternal [...] Objective: Physical Exam Constitutional: Appearance: Normal appearance. Genitourinary: Right Adnexa: not tender and no mass present. Left Adnexa: not tender and no mass present. No cervical discharge. Breasts: Breasts are soft. Right: Normal. Left: Normal. HENT: Head: Normocephalic. Nose: Nose normal. Mouth/Throat: Mouth: Mucous membranes are moist. Cardiovascular: Rate and Rhythm: Normal rate. Pulmonary: Effort: Pulmonary effort is normal. Abdominal: General: Bowel sounds are normal. Palpations: Abdomen is soft. Musculoskeletal: General: Normal range of motion. Cervical back: Normal range of motion. Neurological: General: No focal deficit present. Mental Status: She is alert. Skin: General: Skin is warm and dry. Psychiatric: Mood and Affect: Mood normal. Vitals and nursing note reviewed. Exam conducted with a timekeeper supervisor present. Vitals: Estimated body mass index is 36.44 kg/m as calculated from the following: Height as of 05/20/24: 5' 5 . Weight as of this encounter: 219 lb. BP: 110/68 Patient's last menstrual period was 03/22/2024. ASSESSMENT & PLAN ICD-10-CM 1. Well woman exam with routine gynecological exam Z01.419 Pap Smear 2. Second trimester Z34.92 POCT urinalysis dipstick manually resulted Alpha fetoprotein, maternal Alpha fetoprotein, maternal 3. Vaginal discharge N89.8 SURESWAB(R) ADVANCED VAGINITIS PLUS, TMA 4. STD exposure Z20.2 CHLAMYDIA TRACHOMATIS (GENITO/STI) Neisseria gonorrhea DNA probe, direct Return OB/Annual Exam: Twin gestation. Patient presents today for an annual exam/routine obstetrics appointment. Patient is currently 19w3d . Patient is doing well and states she has no complaints. Pap/cultures was obtained without difficulty and patient was given [facility] order to have obtained. Orders Placed This Encounter Procedures CHLAMYDIA TRACHOMATIS (GENITO/STI) Neisseria gonorrhea DNA probe, direct Alpha fetoprotein, maternal POCT urinalysis dipstick manually resulted Follow Up: Patient is to return to our office in 4 weeks for routine OB appointment Documented by Annika Silva LPN on behalf of: TOMASZ Rizvi documented in this encounter [facility] 07-03-2024 History of Present illness Narrative Reason [...] Onset Diabetes Maternal Grandmother Hypertension Maternal Grandfather John Hypertension Mother's Sister Vansesa Lung cancer Maternal Great-Grandmother Other (bladder cancer) [...] current . Patient is being referred to [facility] for her twin , gave her information about who she will be seeing there. No orders of the defined types were placed in this encounter. Follow Up: Patient is to return to office in 4 weeks for routine OB appointment. Documented by Ibis Sandoval on behalf of: TOMASZ Rizvi documented in this encounter [facility] 07-02-2024 History of Present illness Narrative Images from the original note were not included. [facility] Follow Up / Established Virtual Visit I have communicated my name and active licensure. The patient's identity and physical location were verified at the time of this visit. Either the patient or their legal textile machinery sales representative has been informed of the risks and benefits of -- and alternatives to -- treatment through a remote evaluation and consents to proceed with the evaluation remotely. Individuals who were included in, or assisted with the encounter were: Madyson Mai Joie Seaman APRN.BICYCLE MECHANIC Chief Complaint/Issues: Madyson Mai is a 23 year old female seen in the [facility] for: POTS Most Recent [...] Plan 07/02/2024 - General Neurology, Joie Seaman APRN.BICYCLE MECHANIC ASSESSMENT Madyson Mai is a 23 year [...] which included preparing to see the patient, ghwz-qk-wqyi patient care, completing clinical documentation, obtaining and/or reviewing separately obtained history, performing a medically appropriate examination, counseling and educating the patient/family/caregiver, and ordering medications, tests, or procedures. Joie Seaman, DIRECTOR INFORMATION SECURITY.BICYCLE MECHANIC 06/28/2024 PROMIS Global [employer] Physical Health Summary [...] and warrants attention documented in this encounter [facility] 07-02-2024 Note HNO ID: [id number] Author: JOIE SEAMAN APRN.CNP Service: ? Author Type: Nurse Practitioner Type: Progress Notes Filed: 07/02/2024 19:57 Note Text: [facility] Follow Up / Established Virtual Visit I have communicated my name and active licensure. The patient's identity and physical location were verified at the time of this visit. Either the patient or their legal textile machinery sales representative has been informed of the risks and benefits of -- and alternatives to -- treatment through a remote evaluation and consents to proceed with the evaluation remotely. Individuals who were included in, or assisted with the encounter were: Madyson Charlton Randallleilani Joie Seaman APRN.CNP Chief Complaint/Issues: Madyson Mai is a 23 year old female seen in the [facility] for: POTS Most Recent [...] Plan 07/02/2024 - General Neurology, Joie Seaman APRN.BICYCLE MECHANIC ASSESSMENT Madyson Mai is a 23 year [...] Mostly Moderately S (more content not included)... [facility] 03-20-2024 History of Present illness Narrative Images from the original note were not included. [facility] Follow-Up VIRTUAL VISIT This is a virtual visit using [employer]om[employer] Video Visit. It required patient-provider interaction for the medical decision making as documented below. I have communicated my name and active licensure. The patient's identity and physical location were verified at the time of this visit. Either the patient or their legal textile machinery sales representative has been informed of the [...] which included preparing to see the patient, llfg-zs-dfhr patient care, completing clinical documentation, obtaining and/or reviewing separately obtained history, performing a medically appropriate examination, counseling and educating the patient/family/caregiver, and ordering medications, tests, or procedures. Jyoti Dickey PA-C Neuromuscular Medicine [address] [place]. [address] Appointment: [phone] During our virtual visit encounter we discussed [...] problem? : Mild documented in this encounter [facility] 03-20-2024 Note HNO ID: [id number] Author: JYOTI DICKEY PA-C Service: ? Author Type: Physician Artificial Breeding Distributor Type: Progress Notes Filed: 03/20/2024 15:17 Note Text: [facility] Follow-Up VIRTUAL VISIT This is a virtual visit using [employer] Video Visit. It required patient-provider interaction for the medical decision making as documented below. I have communicated my name and active licensure. The patient's identity and physical location were verified at the time of this visit. Either the patient or their legal textile machinery sales representative has been informed of the risks and benefits of -- and alternatives to -- treatment through a remote evaluation and consents to proceed with the evaluation remotely. Madyson Mai is a 23 year old female here today for a follow up regarding POTS. Last Visit 11/30/2023: Madyson Mai is a 22 year old here today for initial evaluation. Madyson Mia has a unremarkable past medical history. Patient [...] the mean hea (more content not included)... [facility] 11-30-2023 History of Present illness Narrative Images from the original note were not included. [facility] New Patient Evaluation Madyson [...] experienced LOC while walking up the stairs. [place] prodromal symptoms including lightheadedness and tunnel vision. [...] Plantarflexion 5/5 5/5 Movement/Coordination Finger-to- nose-finger and dqof-ve-wtjs intact bilaterally. No evidence of ataxia arms. [...] Brachioradialis 2/4 2/4 Patella 2/4 2/4 Ankle /4 2/4 No Clonus Negative Babinski (toes curl [...] which included preparing to see the patient, wrvt-by-vbve patient care, completing clinical documentation, obtaining and/or [...] on 11/30/23. Jyoti Dickey PA-C Neuromuscular Medicine [address] [place] [address]. [id number] Appointment: [phone] 1. This office note has been dictated [...] problem? : Moderate documented in this encounter [facility] 11-30-2023 Note HNO ID: [id number] Author: JYOTI DICKEY PA-C Service: ? Author Type: Physician Artificial Breeding Distributor Type: Progress Notes Filed: 11/30/2023 11:14 Note Text: [facility] New Patient Evaluation Madyson [...] Patient presents today for evaluation of POTS. abby2020 had knee surgery and then passed out [...] experienced LOC while walking up the stairs. [place] prodromal symptoms including lightheadedness and tunnel vision. [...] breathing: - Tac (more content not included)... [facility] 11-12-2023 Note HNO ID: [id number] Author: ?, ?, ? Service: ? Author [...] Care Visit completed when applicable. Gauri Harris [facility] 11-12-2023 History of Present illness Narrative [...] applicable. Gauri Harris documented in this encounter [facility] 10-10-2023 Note HNO ID: [id number] Author: AURORA SANTIAGO PA-C Service: ? Author Type: Physician Artificial Breeding Distributor Type: Progress Notes Filed: 10/10/2023 16:33 Note Text: [facility] New Patient Evaluation CHIEF [...] No current facility-adminis (more content not included)... [facility] 10-10-2023 Note HNO ID: [id number] Author: ANGELIQUE RUTH MD Service: ? Author [...] VE Couplets or VE Triplets were present. [facility] 07-20-2023 Telephone encounter Note Call to Madyson to discuss referral to dysautonomia clinic. Informed her that we are unable to provide dysautonomia evaluation at this time. Provided number for [facility] scheduling service. No other needs at this time. [facility] 07-20-2023 Miscellaneous Notes Call to Madyson to discuss referral to dysautonomia clinic. Informed her that we are unable to provide dysautonomia evaluation at this time. Provided number for [facility] scheduling service. No other needs at this time. documented in this encounter [facility] 07-10-2023 Note HNO ID: [id number] Author: Jose Armando Grey, DO Service: ? Author Type: Physician Type: Progress Notes Filed: 07/10/2023 10:08 AM Note Text: [facility] Office Visit Documentation Note [facility] Sports Medicine Orthopaedic and Rheumatologic [place] HISTORY OF PRESENT ILLNESS (HPI) CHIEF COMPLAINT / REASON FOR VISIT SERVICE DATE: July 10, 2023 PCP: No primary care provider on file. Madyson Schmid is here today at request of Dr. Jose Armando Schmid specifically for consultation of my opinion in regards to the chief complaint listed below. Correspondence will be shared today via the [employer] electronic health record or through regular mail, [...] expectations. 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 Reaction knee brace Consider [place] toradol, did discuss orthobiologics Follow up: Films prior to visit: Written instructions (see patient instructions) and verbal health education given to patient. Patient verbalizes understanding and agrees with the treatment plan. Jose Armando Grey D.O. [facility] Orthopaedic and Rheumatologic Housekeeping Director, [facility] AND T.E.A.MJesika Program Team Physician, [facility] Baseball Club Consulting Physician, [place] Martin Nagel, Glass Bulb Machine Adjuster [phone] [facility] 07-10-2023 History of Present illness Narrative Images from the original note were not included. [facility] Office Visit Documentation Note [facility] Sports Medicine Orthopaedic and Rheumatologic [place] HISTORY OF PRESENT ILLNESS (HPI) CHIEF COMPLAINT / REASON FOR VISIT SERVICE DATE: July 10, 2023 PCP: No primary care provider on file. Madyson Schmid is here today at request of Dr. Jose Armando Schmid specifically for consultation of my opinion in regards to the chief complaint listed below. Correspondence will be shared today via the [employer] electronic health record or through regular mail, where applicable. Madyson Schmid is a 22 year old female who presents today for a new evaluation of following complaint: Patient presents with: Right Knee - New Patient HISTORY OF PRESENT ILLNESS (HPI) PAIN EVALUATION 07/09/20235 Pain Level: 7 Pain Location: Knee-Right Description: [...] expectations. 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 Reaction knee brace Consider [place] toradol, did discuss orthobiologics Follow up: Films prior to visit: Written instructions (see patient instructions) and verbal health education given to patient. Patient verbalizes understanding and agrees with the treatment plan. Jose Armando Grey D.O. [facility] Orthopaedic and Rheumatologic Housekeeping Director, [facility] & T.E.A.M. Program Team Physician, [facility] Baseball Club Consulting Physician, [place] Martin Nagel, Glass Bulb Machine Adjuster [phone] documented in this encounter [facility] 12-28-2022 History of Present illness Narrative Madyson [...] surgery Evaluated by DR Case ([facility]) in 2020 no rheum issue found and [...] Swollen Glands: No documented in this encounter [facility] 07-31-2022 History of Present illness Narrative Madyson [...] surgery Evaluated by DR Case ([facility]) in 2020 no rheum issue found and [...] Swollen Glands: No documented in this encounter [facility] 07-10-2022 History of Present illness Narrative Most [...] she did get a second opinion in [place], and no change in medication was suggested [...] with paucity of objective findings on the [id number]. Abnormal tilt table test, with a combination [...] I will defer that to Dr. Maza MP-[facility] [address] DO Work Phone: 06-12-2022 Note Pre-procedure Verifi cation and Time Out: Pre-Procedure Verification and Time Out: Procedure Locationbedside PRE-PROCEDURE Verificationcompleted TIME OUT - Final Verificationcompleted immediately prior to procedure start General Information: Anesthesia Critical Care: Non-Anesthesia Date/Time of Procedure: 12-Jun-2022 Post-Procedure Diagnosis: syncope Procedure Name: tilt table test Findings: grossly normal anatomy Procedure performed by: Artificial Breeding Distributor(s): none Estimated Blood Loss (mL): none Specimen: [...] Last Updated: 14-Jun-2022 11:56 by Annalee Maza) [facility] 03-24-2022 History of Present illness Narrative Patient [...] while walking to the bathroom.She will see other sports coach or instructor in the near future, she had her pulmonary function test which I reviewed, there is concern for chronic asthma, but no reactive airway disease.She has 3 dogs that she had, and 1 cat at home.She is not orthostatic. She is feeling palpitations quite a bit.Results of the pulmonary function test and a Micah of SSEV was reviewed. Also reviewed stress test and [...] the results of culpable test are available. [facility] Phone: 03-24-2022 History of [...] while walking to the bathroom.She will see other sports coach or instructor in the near future, she had her pulmonary function test which I reviewed, there is concern for chronic asthma, but no reactive airway disease.She has 3 dogs that she had, and 1 cat at home.She is not orthostatic. She is feeling palpitations quite a bit.Results of the pulmonary function test and a Micah Lipocalyx was reviewed. Also reviewed stress test and [...] the results of culpable test are available. -[facility]-Jose ITADSecurity DO Work Phone: 02-02-2022 Miscellaneous Notes Spoke [...] P Mathai, MD documented in this encounter [facility] 01-25-2022 History of Present illness Narrative Madyson [...] February Evaluated by DR Case ([facility]) in 2020 no rheum issue found and [...] February Evaluated by DR Case ([facility]) in 2020 no rheum issue found and [...] Irvin Hanna MD documented in this encounter [facility] 01-10-2022 Evaluation note Encounter Date Diagnosis Assessment Notes Dec, Skin rash (ICD-10 - R21) Dec, Other Transient recurrent color change coordinator the knees and toes I do not [...] will go ahead with her evaluation in [facility]. [employer] Other 01-17-2022 Evaluation note* Encounter Date Diagnosis [...] day as needed for pain and swelling. [employer] Other 07-01-2021 History of Present illness Narrative* [...] heart murmur and has been transferred to [facility] * There is no family history [...] 3 times daily. New prescription sent. Consider [facility] in the future. * Order 30-day monitor [...] needed, treatment options, risks, benefits, and imponderables. [place] [employer] lifestyle changes and behavioral modification discussed. All questions answered in detail. Counseling over 50% visit regarding above. Patientappreciative of care. * At the end the office visit, she did report that she will be seeing an ventilator specialist in [place]. We did discuss that she could hold [...] errors as software dictation application being used. -[facility] [address] DO Work Phone: 1(384) 241-809408-25-2020 History of Present illness Narrative* She is [...] exposed to secondhand smoke from her mother. [facility] [address] DO Work Phone: 1(946) 244-805207-09-2020 History of Present illness Narrative* Patient is [...] twin brother had to be taken to [facility], and has history of heart murmur. [...] arise, * Sincerely, * Melodie alcaraz MD [facility] Work Phone: 1(104) 245-406707-01-2020 History of Present illness Narrative* Patient is [...] twin brother had to be taken to [facility], and has history of heart murmur. [...] arise, * Sincerely, * Melodie alcaraz MD [place] [address] DO Work Phone: 1([phone]) 433-930706-30-2020 History of Present illness Narrative* Patient is [...] twin brother had to be taken to [facility], and has history of heart murmur. [...] arise, * Sincerely, * Melodie alcaraz MD [facility] 250 DO Work Phone: 1([phone]) 886-122301-01-2008 History general Narrative - Reported* Type Description Date Medical History general health good Surgical History tonsillectomy and adenoidectomy 09/2007 [employer] Other 01-01-2008 History general Narrative - Reported* Type Description Date Medical History general health good Surgical History tonsillectomy and adenoidectomy 09/2007 Surgical History right knee cleaned up scar tiss ue 2020 [employer] Other Chief complaint Narrative - ReportedMADYSON SCHMID is being seen for a cardiovascular evaluation of abnormal test(s) results and dyspnea.[facility] [address] DO Work Phone: Chiyg complaint Narrative - ReportedMADYSON SCHMID is being seen for a cardiovascular evaluation of abnormal test(s) results and dyspnea.[facility] Work Phone: Evaluation + Plan note No data available for this section [facility] Diagnosis Pain and swelling of knee, right- Primary Joint stiffness Stiffness of joint, not elsewhere classified, unspecified site documented [facility] [facility] Work [facility]: Evaluation note* Diagnosis Pain and swelling of knee, right- Primary Joint stiffness Stiffness of joint, not elsewhere classified, unspecified site Inflammatory arthritis Unspecified inflammatory polyarthropathy [facility] Diagnosis Pain and swelling of knee, right- Primary Joint stiffness Stiffness of joint, not elsewhere classified, unspecified site [facility]* Diagnosis Right knee pain, unspecified chronicity- Primary [facility]* Diagnosis Chronic pain of right knee- Primary Tendinopathy of gluteal region Unspecified disorder of synovium, tendon, and bursa documented [facility]* Diagnosis Orthostatic lightheadedness- Primary Dizziness and giddiness documented [facility]* Diagnosis POTS (postural orthostatic tachycardia syndrome)- Primary Tachycardia, unspecified [facility]* Diagnosis POTS (postural orthostatic tachycardia syndrome)- Primary Tachycardia, unspecified [facility]* Diagnosis POTS (postural orthostatic tachycardia syndrome)- Primary Tachycardia, unspecified Near syncope Syncope and collapse [facility]* Diagnosis Second trimester state, incidental 14 weeks gestation of [facility] Diagnosis Thumb pain, right- Primary De Quervain's disease (tenosynovitis) Radial styloid tenosynovitis PCOS (polycystic ovarian syndrome) Polycystic ovaries POTS (postural orthostatic tachycardia syndrome) Unspecified tachycardia Tension headache- Primary Encounter for immunization POTS (postural orthostatic tachycardia syndrome) Unspecified tachycardia Well adult exam Routine general medical examination at a health care facility Well woman exam with routine gynecological exam Routine gynecological examination Second trimester state, incidental Vaginal discharge Leukorrhea, not specified as infective STD exposure Leg cramping Heartburn [facility] Diagnosis Dichorionic diamniotic twin in second trimester- Primary POTS (postural orthostatic tachycardia syndrome) Unspecified tachycardia Asthma during 20 weeks gestation of [facility] Diagnosis Dichorionic diamniotic twin in second trimester- Primary POTS (postural orthostatic tachycardia syndrome) Unspecified tachycardia Asthma during 20 weeks gestation of [facility] N[facility]* The patient is [...] heart murmur and had been transferred to [facility] * There is no change in [...] patient that she saw Dr. Muñiz at [facility] for second opinion regarding neurally mediated syncope and near syncope. He agreed with evaluation and management and patient opted to follow-up here at [facility] in [place]. * Zio patch August 2022. All rhythms [...] needed, treatment options, risks, benefits, and imponderables. [employer] [employer] lifestyle changes and behavioral modification discussed. All questions answered in detail. Counseling over 50% visit regarding above. Patient appreciative of care. * Grammar * Please excuse grammatical or dictation errors as software dictation application being used. [facility] 320 DO Work Phone: History of Present illness Narrative* The patient states she has been generally stable since the last visit. * Symptoms: denies chest pain at rest, denies exertional chest pain, denies dyspnea, stable fatigue, denies exercise intolerance, stable palpitations, denies edema, denies orthopnea, stable dizziness and stable orthostatic dizziness. * Disease Monitoring: [facility] 600 DO Work Phone: Hospital Discharge instructions No data available for this section [facility] filedocumented in this encounter [facility] filedocumented in this encounter [facility]Not on filedocumented in this encounter [facility] No data available for this section [facility] for referral (narrative)* Diagnostic Procedure Only (Routine) - Pending Review Specialty Diagnoses / Procedures Referred By Rachel t Referred To Contact XR IMAGING Diagnoses Right knee pain, unspecified chronicity Procedures XR KNEE GENERAL 4V AP BOTH/PA BOTH/LAT/MERC RIGHT RADIOLOGIC EXAM KNEE COMPLETE 4/MORE VIEWS Jose Armando Grey, [address] [place] [address] [place] [id number] Referral ID Status Reason Start Date Expiration Date Visits Requested Visits Authorized [id number] Pending Review Auto-Generat ed Referral 3 08/04/2024 1 1 [facility] for visit Narrativerash knee referral from Cj Jaimes, She gets a funny rash on her knee and toesNorth Trust Metrics Other Summary Purpose Family History Unknown Family Member Name Dates Details Family [...] murm ur: Brother(V17.49, Z82.49) Status:Active Advance Directives Advance Directive Response Recorded Date/ Time Advance [...] or prosecute any alcohol or drug abuse patient.[facility] the event this information is protected by the Federal Confidentiality of Alcohol and Drug Abuse Patient Records regulations: The Federal rules restrict any use of the information to criminally investigate or prosecute any alcohol or drug abuse patient.[facility] Institute[facility] the event this information is protected by the Federal Confidentiality of Alcohol and Drug Abuse Patient Records regulations: The Federal rules restrict any use of the information to criminally investigate or prosecute any alcohol or drug abuse patient.[facility] Institute[facility] the event this information is protected by the Federal Confidentiality of Alcohol and Drug Abuse Patient Records regulations: The Federal rules restrict any use of the information to criminally investigate or prosecute any alcohol or drug abuse patient.[facility] InstituteIn the event this information is protected by the Federal Confidentiality of Alcohol and Drug Abuse Patient Records regulations: The Federal rules restrict any use of the information to criminally investigate or prosecute any alcohol or drug abuse patient.[facility] InstituteIn the event this information is protected by the Federal Confidentiality of Alcohol and Drug Abuse Patient Records regulations: The Federal rules restrict any use of the information to criminally investigate or prosecute any alcohol or drug abuse patient.[facility] InstituteIn the event this information is protected by the Federal Confidentiality of Alcohol and Drug Abuse Patient Records regulations: The Federal rules restrict any use of the information to criminally investigate or prosecute any alcohol or drug abuse patient.[facility] InstituteIn the event this information is protected by the Federal Confidentiality of Alcohol and Drug Abuse Patient Records regulations: The Federal rules restrict any use of the information to criminally investigate or prosecute any alcohol or drug abuse patient.[facility] InstituteIn the event this information is protected by the Federal Confidentiality of Alcohol and Drug Abuse Patient Records regulations: The Federal rules restrict any use of the information to criminally investigate or prosecute any alcohol or drug abuse patient.[facility] InstituteIn the event this information is protected by the Federal Confidentiality of Alcohol and Drug Abuse Patient Records regulations: The Federal rules restrict any use of the information to criminally investigate or prosecute any alcohol or drug abuse patient.[facility] InstituteIn the event this information is protected by the Federal Confidentiality of Alcohol and Drug Abuse Patient Records regulations: The Federal rules restrict any use of the information to criminally investigate or prosecute any alcohol or drug abuse patient.[facility] InstituteIn the event this information is protected by the Federal Confidentiality of Alcohol and Drug Abuse Patient Records regulations: The Federal rules restrict any use of the information to criminally investigate or prosecute any alcohol or drug abuse patient.[facility] Reason for Visit (unrecogniz ed section and content) Reason Comments New Patient Reason Comments Orders Reason Comments Follow Up Reason Comments 4 Month Follow Up Reason Onset Date Comments Referral Follow-up 07/20/2023 Reason Comments Procedure Reason Comments New Patient Consult Reason Comments Follow Up Reason Comments POTS Reason Comments Routine Visit Reason Comments Well Women Visit Routine Visit STI Screening Reason Comments [place] POTS INFORMATION SOURCE (unrecogn ized section and content) DATE CREATED AUTHOR 02/03/2022 [facility] DATE CREATED AUTHOR AUTHOR'S ORGANIZ ATION 06/24/2022 [facility] DATE CREATED AUTHOR AUTHOR'S ORGANIZ ATION 09/15/2022 [facility] DATE CREATED AUTHOR AUTHOR'S ORGANIZ ATION 03/16/2023 [facility] DATE CREATED AUTHOR AUTHOR'S ORGANIZ ATION 06/15/2023 [facility] DATE CREATED AUTHOR AUTHOR'S ORGANIZ ATION 07/11/2023 [facility] DATE CREATED AUTHOR AUTHOR'S ORGANIZ ATION 03/15/2024 [facility] DATE CREATED AUTHOR AUTHOR'S ORGANIZ ATION 04/15/2024 [facility] DATE CREATED AUTHOR AUTHOR'S ORGANIZ ATION 07/04/[address] [facility] DATE CREATED AUTHOR AUTHOR'S ORGANIZ ATION 07/11/2024 [facility] DATE CREATED AUTHOR AUTHOR'S ORGANIZ ATION 07/26/2024 [facility] DATE CREATED AUTHOR AUTHOR'S ORGANIZ ATION 08/06/2024 [facility] DATE CREATED AUTHOR AUTHOR'S ORGANIZ ATION 08/15/2024 [facility] Care Teams (unrecognized sec tion and content) Team Status: Inactive Member Role Status Dates Ibis Renteria , TIKA-C Primary Care Provider Activ e Guerita Davidson NP-C Attending Provider Active Team Status: Inactive Member Role Status Dates Ibis Renteria NP-C Primary Care Provider Activ e Melodie Alcaraz MD Attending Provider Active Team Status: Inactive Member Role Status Dates Ibis Renteria NP-C Primary Care Provider Activ e Melodie Alcaraz MD Attending Provider Active Álvaro Osborn MD Referring Provider Active Team Status: Active Member Role Status Dates Ibis Renteria NP-C Primary Care Provider Activ e Team Status: Inactive Member Role Status Dates Ibis Renteria NP-C Primary Care Provider Activ e Dyllan Pearce APRN Emergency Provider Active Team Status: Inactive Member Role Status Dates Ibis Renteria , [employer] DELIV[employer]IVERS SUPERVISOR-C Primary Care Provider Activ e Christina Perez APRN Attending Provider Active Team Status: Inactive Member Role Status Dates Ibis Renteria , [employer] DELIV[employer]IVERS SUPERVISOR-C Primary Care Provider Activ e Carlitos Nguyen Jr, DO Attending Provider Active Pipe Line Walker Relationship Specialty Start Date End Date MyraIbis CNP [address] [place] [address] PCP - General Nurse Practitioner 07/09/23 Pipe Line Walker Relationship Specialty Start Date End Date MyraIbis CNP [address] [place] [address] PCP - General Nurse Practitioner 07/09/23 Team Status: Inactive Member Role Status Dates Ibis Renteria NP-C Primary Care Provider Activ e Haris Martino , DO Emergency Provider Active Team Status: Inactive Member Role Status Dates Ibis Renteria , R[employer] DELIVERY DRIVERS SUPERVISOR-C Primary Care Provider Activ e Nam Barnes , DO [facility] Attending Provider Active Pipe Line Walker Relationship Specialty Start Date End Date Jb Mandujano MD [address] [address] PCP - General Family Medicine 05/20/24 Osei Malik DO [address] [place] [address] Referring Physician Obstetrics and Gynecology 06/05/24 Flori Gil PA [address] [place] [address] Physician Artificial Breeding Distributor Obstetrics and Gynecology 06/05/24 Pipe Line Walker Relationship Specialty Start Date End Date Jb Mandujano MD 112 [facility] [place] [address] PCP - General Family Medicine 05/20/24 Osei Malik DO [address] [place], [place] [id number] Referring Physician Obstetrics and Gynecology 06/05/24 Flori Gil PA [facility] [address] [place], [place] [id number] Physician Artificial Breeding Distributor Obstetrics and Gynecology 06/05/24 Pipe Line Walker Relationship Specialty Start Date End Date Ander Boateng MD [address] [place] [address] PCP - General 11/30/17 Pipe Line Walker Relationship Specialty Start Date End Date Jb Mandujano MD 112 [facility] [address] [place] [address] PCP - General Family Medicine 05/20/24 Osei Malik DO [facility] [place] [address] Referring Physician Obstetrics and Gynecology 06/05/24 Flori Gil PA [facility] [address] Physician Artificial Breeding Distributor Obstetrics and Gynecology 06/05/24 Pipe Line Walker Relationship Specialty Start Date End Date Jb Mandujano MD [address] [place] [address] [address] [place] [address] PCP - General Family Medicine 05/20/24 Osei Malik DO [address] [place] [address] Referring Physician Obstetrics and Gynecology 06/05/24 Flori Gil PA [address] [place] [address] Physician Artificial Breeding Distributor Obstetrics and Gynecology 06/05/24 Pipe Line Walker Relationship Specialty Start Date End Date Jb Mandujano MD [address] [place] [facility] [address] [place] [address] PCP - General Family Medicine 05/20/24 Osei Malik, [address] [place] [address] Referring Physician Obstetrics and Gynecology 06/05/24 Flori Gil PA [address] [place] [address] Physician Artificial Breeding Distributor Obstetrics and Gynecology 06/05/24 Pipe Line Walker Relationship Specialty Start Date End Date Ander Boateng MD [address] [place] [address] PCP - General 11/30/17 Pipe Line Walker Relationship Specialty Start Date End Date Jb Mandujano MD [address] [place] [address] [place] [address] PCP - General Family Medicine 05/20/24 Osei Malik, [address] [place] [address] Referring Physician Obstetrics and Gynecology 06/05/24 Flori Gil PA [address] [place] [address] Physician Artificial Breeding Distributor Obstetrics and Gynecology 06/05/24 Pipe Line Walker Relationship Specialty Start Date End Date Jb Mandujano MD [address] [place] [address] [place] [address] PCP - General Family Medicine 05/20/24 Osei Malik DO [address] [place] [address] Referring Physician Obstetrics and Gynecology 06/05/24 Flori Gil PA [address] [place] [address] Physician Artificial Breeding Distributor Obstetrics and Gynecology 06/05/24 Pipe Line Walker Relationship Specialty Start Date End Date Ander Boateng MD [address] [place] [address] PCP - General 11/30/17 Goals (unrecognized [...] BE BASED ON THE PRIMARY CLINICAL RECORDS. [email or web address] [facility]. provides no warranty or guarantee of the accuracy or completeness of information in this document.
[2024-08-20 10:26] LABS: Basophils Percent Auto 0.2 % (0.2-2.0); Eosinophils Absolute Auto 0.1 10^3/uL (0.0-0.7); Eosinophils Percent Auto 0.7 % (0.9-7.0); Hematocrit 32.9 % (36.0-48.0); Hemoglobin 11.1 g/dL (12.0-16.0); Immature Granulocytes Abs Auto 0.11 10^3/uL (0.00-0.03); Immature Granulocytes Pct Auto 1.1 % (0.0-0.5); Lymphocytes Absolute Auto 1.3 10^3/uL (1.2-3.8); Mean Corpuscular HGB Conc 33.7 g/dL (29.9-35.2); Mean Corpuscular Hemoglobin 29.6 pg (26.7-34.0); Mean Corpuscular Volume 87.7 fL (81.0-99.0); Mean Platelet Volume 10.3 fL (9.5-13.5); Monocytes Absolute Auto 0.6 10^3/uL (0.3-0.8); Monocytes Percent Auto 5.5 % (1.7-12.0); Neutrophils Absolute Auto 7.9 10^3/uL (1.4-6.5); Neutrophils Percent Auto 79.5 % (43.0-75.0); Platelet Count 178 10^3/uL (150-450); Red Blood Count 3.75 10^6/uL (4.20-5.40); Red Cell Distribution Width 13.6 % (11.0-15.0); White Blood Count 9.9 10^3/uL (4.0-11.0)
[2024-08-20 10:44] LABS: Glucose 1 Hour 168 mg/dL (<130)
== END 2024-08-20 09:19 | disposition home or self-care (01) ==
LOC: LAB 09:18
PROVIDERS: PCP Family Medicine; Visit Provider Obstetrics & Gynecology
DX: Z13.1 Encounter for screening for diabetes mellitus (principal)
CPT/HCPCS: 36415; 82950; 85025

== ENCOUNTER 2024-09-01 07:58 | Outpatient (OUT) | payer OTHER, SELFPAY ==
[2024-09-01 09:18] LABS: Glucose Fasting 86 mg/dL (<95)
[2024-09-01 09:53] LABS: Glucose 1 Hour 162 mg/dL (<180)
[2024-09-01 10:39] LABS: Glucose 2 Hour 156 mg/dL (<155)
[2024-09-01 11:55] LABS: Glucose 3 Hour 110 mg/dL (<140)
== END 2024-09-01 07:59 | disposition home or self-care (01) ==
LOC: LAB 08:00
PROVIDERS: PCP Family Medicine; Visit Provider Obstetrics & Gynecology
DX: R73.09 Other abnormal glucose (principal)
CPT/HCPCS: 36415; 82951; 82952

== ENCOUNTER 2024-09-25 14:02 | Observation (INO) | payer OTHER, SELFPAY ==
--- NOTE | 2024-09-25 | US_ITS ---
[address] [address] Patient Name: CJ MAI MRN: [id number] date: 2000 Sex: F Assigned Patient Location: [facility] Current Patient Location: [facility] Accession/Order Number: [id number] Exam Date: 09/25/2024 16:10 Report Date: 09/25/2024 16:39 At the request of: SHELBI WILLIAM Procedure: US OB BPP w non-stress EXAMINATION: US OB BPP w non-stress, US OB BPP w non-stress, US OB cervical length HISTORY: Decreased movement COMPARISON: No relevant comparison available. TECHNIQUE: Ultrasound biophysical profile was performed in the radiology department. non-reactive stress testing was performed by nursing staff in the birthing center. Cervix: 5.2 cm in length BABY A: FINDINGS: BREATHING MOVEMENTS: 2 GROSS BODY MOVEMENTS: 2 TONE: 2 QUALITATIVE AMNIOTIC FLUID VOLUME: 2 PRESENTATION: Cephalic HEART RATE: 143 beats minute AMNIOTIC FLUID VOLUME: 6.5 x 8.8 cm GESTATIONAL AGE: 26 weeks 5 days US/US OB BPP w non-stress IMPRESSION: Total biophysical profile score: 8 BABY B: FINDINGS: BREATHING MOVEMENTS: 2 GROSS BODY MOVEMENTS: 2 TONE: 2 QUALITATIVE AMNIOTIC FLUID VOLUME: 2 PRESENTATION: Cephalic HEART RATE: 142 beats minute AMNIOTIC FLUID VOLUME: 6.3 x 5.2 cm GESTATIONAL AGE: 26 weeks 5 days IMPRESSION: Total biophysical profile score: 8 Electronically authenticated by: TIM FRANCE Date: 09/25/2024 16:39
[2024-09-25 15:11] LABS: Bilirubin Urine NEGATIVE (NEGATIVE); Blood Urine NEGATIVE (NEGATIVE); Clarity Urine CLEAR (CLEAR); Color Urine LT. YELLOW (YELLOW); Glucose Urine UA 250 mg/dL (NEGATIVE); Ketones Urine NEGATIVE (NEGATIVE); Leukocyte Esterase Urine SMALL (NEGATIVE); Nitrite Urine NEGATIVE (NEGATIVE); Protein Urine NEGATIVE (NEG/TRACE); Urobilinogen Urine 0.2 EU/dL (0.2-1.0)
--- NOTE | 2024-09-25 15:12 | US_ITS ---
[address] [address] Patient Name: CJ MAI MRN: [id number] date: 2000 Sex: F Assigned Patient Location: [facility] Current Patient Location: [facility] Accession/Order Number: [id number] Exam Date: 09/25/2024 15:13 Report Date: 09/25/2024 16:39 At the request of: SHELBI WILLIAM Procedure: US OB cervical length EXAMINATION: US OB BPP w non-stress, US OB BPP w non-stress, US OB cervical length HISTORY: Decreased movement COMPARISON: No relevant comparison available. TECHNIQUE: Ultrasound biophysical profile was performed in the radiology department. non-reactive stress testing was performed by nursing staff in the birthing center. Cervix: 5.2 cm in length BABY A: FINDINGS: BREATHING MOVEMENTS: 2 GROSS BODY MOVEMENTS: 2 TONE: 2 QUALITATIVE AMNIOTIC FLUID VOLUME: 2 PRESENTATION: Cephalic HEART RATE: 143 beats minute AMNIOTIC FLUID VOLUME: 6.5 x 8.8 cm GESTATIONAL AGE: 26 weeks 5 days US/US OB cervical length IMPRESSION: Total biophysical profile score: 8 BABY B: FINDINGS: BREATHING MOVEMENTS: 2 GROSS BODY MOVEMENTS: 2 TONE: 2 QUALITATIVE AMNIOTIC FLUID VOLUME: 2 PRESENTATION: Cephalic HEART RATE: 142 beats minute AMNIOTIC FLUID VOLUME: 6.3 x 5.2 cm GESTATIONAL AGE: 26 weeks 5 days IMPRESSION: Total biophysical profile score: 8 Electronically authenticated by: TIM FRANCE Date: 09/25/2024 16:39
--- NOTE | 2024-09-25 15:12 | US_ITS ---
[address] [address] Patient Name: CJ MAI MRN: [id number] date: 2000 Sex: F Assigned Patient Location: [facility] Current Patient Location: [facility] Accession/Order Number: [id number] Exam Date: 09/25/2024 15:13 Report Date: 09/25/2024 16:39 At the request of: SHELBI WILLIAM Procedure: US OB BPP w non-stress EXAMINATION: US OB BPP w non-stress, US OB BPP w non-stress, US OB cervical length HISTORY: Decreased movement COMPARISON: No relevant comparison available. TECHNIQUE: Ultrasound biophysical profile was performed in the radiology department. non-reactive stress testing was performed by nursing staff in the birthing center. Cervix: 5.2 cm in length BABY A: FINDINGS: BREATHING MOVEMENTS: 2 GROSS BODY MOVEMENTS: 2 TONE: 2 QUALITATIVE AMNIOTIC FLUID VOLUME: 2 PRESENTATION: Cephalic HEART RATE: 143 beats minute AMNIOTIC FLUID VOLUME: 6.5 x 8.8 cm GESTATIONAL AGE: 26 weeks 5 days US/US OB BPP w non-stress IMPRESSION: Total biophysical profile score: 8 BABY B: FINDINGS: BREATHING MOVEMENTS: 2 GROSS BODY MOVEMENTS: 2 TONE: 2 QUALITATIVE AMNIOTIC FLUID VOLUME: 2 PRESENTATION: Cephalic HEART RATE: 142 beats minute AMNIOTIC FLUID VOLUME: 6.3 x 5.2 cm GESTATIONAL AGE: 26 weeks 5 days IMPRESSION: Total biophysical profile score: 8 Electronically authenticated by: TIM FRANCE Date: 09/25/2024 16:39
[2024-09-25 15:30] LABS: Urine Microscopic Indicated YES
[2024-09-25 15:33] LABS: RBC Urine 0-2 #/HPF (0-2)
[2024-09-25 15:34] LABS: Cast Seen? NONE SEEN #/LPF (NONE SEEN); Crystals Seen? None Seen #/HPF (None Seen); Mucus Urine TRACE (NONE SEEN); Squamous Epithelial Cell Urine FEW #/LPF (NONE/RARE); Transitional Epi Cells Urine RARE #/LPF (NONE SEEN)
[2024-09-25 15:37] LABS: Bacteria Urine SMALL #/HPF (NONE SEEN); Urine Culture Indicated YES
--- NOTE | 2024-09-25 16:47 | PC.NURSE ---
Twin A: 8/8; 6.5x8.8, Twin B: 8/8; 6.3x5.2; Cervical length 5.2cm, closed
--- NOTE | 2024-09-25 16:50 | PC.NURSE ---
Twin A: 6.5x8.8; 8/8. Twin B:6.3x5.2; 8/8. Cervical length: 5.2cm closed.
[2024-09-26 08:00] LABS: BOX Test Reference Lab FIRELANDS
== END 2024-09-25 16:10 | disposition home or self-care (01) ==
LOC: FBC 14:04
PROVIDERS: Admitting Provider Obstetrics & Gynecology; PCP Family Medicine; Visit Provider Obstetrics & Gynecology
DX: O36.8120 Decreased fetal movements, second trimester, not applicable or unspecified (principal); O30.002 Twin pregnancy, unspecified number of placenta and unspecified number of amniotic sacs, second trimester; Z3A.26 26 weeks gestation of pregnancy
CPT/HCPCS: 36415; 59025; 76817; 76818; 81001; 87086; G0378; G0379

== ENCOUNTER 2024-10-18 19:58 | Observation (INO) | payer OTHER, SELFPAY ==
--- OUTSIDE RECORDS SUMMARY | 2024-10-18 20:03 | XMS_ITS | CCD ---
Author Organization [facility] Care Team Providers Care Fire Control System Installer Name Role Phone Unavailable Primary Care Provider Unavailsoniya e Christina Pearce Unavailable Ok Mckeon Unavailable Ibis Renteria Unavailable Unavailable Unavailable CARLOS Renteria Primary Care Provider MD Melodie Alcaraz Attending Provider [phone] MD Álvaro Osborn Referring Provider CARLOS Davidson Attending Provider [phone] JOHNNY Pearce Emergency Provider [phone] Link, Dr. Annalee Torres Attending Unavailab Dr. [...] Dr. Annalee Torres Referring Unavailab le Myra, MsJesika Winter Primary [...] Ibis Winter Primary Care Unavail able JOSE ARAMNDO GREY Attending Unavailable Myra Ibis GOODSON Primary Care Provider [phone] Myra, HOSPICE NURSE-C Ibis Winter Primary Care Provider DO Haris Martino Emergency Provider DO Nam Barnes Attending Provider [phone] JB MANDUJANO Primary Care Physician Rinkes, Celeste Admitting Unavailable Rinkes, Celeste Attending Unavailable Jocelin FELIX Attending Unavailable Mae, SILK SCREEN PRINTER Kirsta L Attending Unavailable Mae, SILK SCREEN PRINTER Krista L Attending Unavailable Unavailable Primary Care Provider Unavailabl e Rinkes, Celeste Attending Unavailable Rinkes, Celeste Admitting Unavailable Rinkes, Celeste Attending Unavailable Rinkes, Celeste Admitting Unavailable Jb Mandujano MD Primary Care Provider [phone] Osei Malik DO Unavailable Flori Sam Unavailable Ander Boateng MD Primary Care Provider [phone] [facility] Un[facility] Unavailable Ibis Renteria Primary Care Unavailable Rinkes, Celeste Attending Unavailable Rinkes, Celeste Admitting Unavailable SANTIAGO, AURORA Attending Unavailable SANTIAGO, AURORA Referring Unavailable SANTIAGO, AURORA Referring Unavailable SANTIAGO, AURORA Referring Unavailable SANTIAGO, AURORA Referring Unavailable NOBLE, JYOTI Attending Unavailable NOBLE, JYOTI Attending Unavailable DIEDERICH, JOIE E Attending Unavailable NOBLE, JYOTI Attending Unavailable HELENA, OSEI Attending Unavailable RINKES, CELESTE E Attending Unavailable RINKES, CELESTE E Attending Unavailable NAZIA, JB M Attending Unavailable NAZIA, JB M Attending Unavailable HEMMER, CAMILLA M Attending Unavailable HELENA, OSEI Attending Unavailable LOUISE, FLORI Attending Unavailable LOUISE, FLORI Attending Unavailable HEMMER, CAMILLA M Attending Unavailable HELENA, OSEI Attending Unavailable HELENA, OSEI Attending Unavailable HELENA, OSEI Attending Unavailable HELENA, OSEI R Referring Unavailable BUMAGINA, ANDER Primary Care Unavailable MOUSSA, HAMMAD NADIM Attending Unavailable HELENA, OSEI R Referring Unavailable BUMAGINA, ANDER Primary Care Unavailable HELENA, OSEI R Referring Unavailable BUMAGINA, ANDER Primary Care Unavailable HELENA, OSEI R Referring Unavailable BUMAGINA, ANDER Primary Care Unavailable Allergies Allergy Classification Reported Allergen(s) Allergy Type Date of Onset Reaction(s) Facility Acetaminophen / oxyCODONE (1 source) Acetaminophen / oxyCODONE; Translations: [acetaminophen-o xycodone] Drug Allergy [facility] Comment on above: no narcotics, GI ups et Chlorhexidine (1 source) Chlorhexidine; Translations: [chlorhexidine topical] Drug Allergy Itching [facility] Corticosteroids (1 source) predniSONE; Translations: [prednisone] Drug Allergy [facility] (15 sources) Morphinan opioid; Translations: [OPIOIDS - MORPHINE ANALOGUES] Propensity to adverse reactions to drug 01-26-20 Other: See Comments [facility] (20 sources) predniSONE; Translations: [predniSONE] Drug Allergy 01-26-20 22 Other: See Comments, Dizziness [facility] (20 sources) prednisoLONE; Translations: [prednisolone] Drug Allergy 01-11-20 22 GI Disturbance [facility] [employer] Other (15 sources) Fludrocortisone; Translations: [Florinef TABS] Drug Allergy Nausea [facility] DO Work Phone: (20 sources) Midodrine; Translations: [midodrine] Drug Allergy 08-13-20 23 GI bleeding [facility] (3 sources) Acetaminophen / oxyCODONE; Translations: [Percocet] Drug Allergy [facility] (4 sources) Chlorhexidine; Translations: [chlorhexidine topical] Drug Allergy Itching [facility] (7 sources) Acetaminophen / oxyCODONE; Translations: [acetaminophen-o xycodone] Drug Allergy 07-07-20 24 GI Disturbance [facility] [place] Comment on above: no narcotics, GI ups et (20 sources) Acetaminophen / oxyCODONE; Translations: [OXYCODONE-ACETA MINOPHEN] Drug Allergy 02-26-20 24 [facility] (20 sources) Chlorhexidine; Translations: [CHLORHEXIDINE] Drug Allergy 02-21-20 23 Itching [facility] Work Phone: (20 sources) Fludrocortisone; Translations: [FLUDROCORTISONE ] Drug Allergy 07-26-20 22 Nausea [facility] (20 sources) Prednisone Allergy to substance 02-18-20 23 Dizziness [facility] (1 source) predniSONE Drug Allergy 06-08-20 23 [facility] Medications Current Medications Medication Drug Class(es) Dates Sig (Normalized) Sig (Original) [id number] 200 actuat albuterol 0.09 mg/actuat metered dose inhaler (20 sources) beta2-Adrenergic Agonist Start: 08-27-2024 take 2 puff(s) by inhalation every four hours for wheezing albuterol HFA 90 mcg/act inhaler Indications: Mild intermittent asthma with acute exacerbation (CMS/HCC) Inhale 2 puffs every 4 (four) hours if needed for wheezing 18 g 5 08/27/2024 Active Start: 03-13-2023 End: 08-27-2024 albuterol HFA 90 mcg/act inh aler 03/13/2023 08/27/2024 Discontinued (Reorder) Start: 06-01-2022 take 2 puff(s) by in [...] Refill(s) 0 Start Date: 12/11/23 Status: Ordered amoxicillin 500 mg oral tablet (3 sources) Penicillin-class Antibacterial Start: End: take 1 tablet by mouth in the morning, then take 1 tablet by mouth in the evening, then take 1 tablet by mouth at bedtime amoxicillin (Amoxil) 500 MG tablet Indications: Gestational diabetes mellitus (GDM), antepartum, gestational diabetes method of control unspecified , Other subacute sinusitis Take 1 tablet (500 mg) by mouth in the morning and 1 tablet (500 mg) in the evening and 1 tablet (500 mg) before bedtime. Do all this for 7 days. 21 tablet 09/18/2024 09/25/2024 Active breath-actuated 120 actuat beclomethasone dipropionate 0.08 mg/actuat metered dose inhaler (14 sources) Corticosteroid Start: Beclomethasone Diprop HFA (Qvar RediHaler) 80 MCG/ACT inhaler Indications: Mild persistent asthma without complication (CMS/HCC) Inhale 1 Inhalation in the morning and 1 Inhalation before bedtime. Rinse mouth with water after use to reduce aftertaste and incidence of candidiasis. Do not swallow.. 10.6 g 5 08/27/2024 Active Blood Glucose Monitoring Suppl (D-Care Glucometer) w/Device kit (8 sources) Start: End: Blood Glucose Monitoring Suppl (D-Care Glucometer) w/Device kit Indications: Gestational diabetes mellitus (GDM), antepartum, gestational diabetes method of control unspecified , Elevated glucose tolerance test 1 kit Daily Use four times daily to check FSBS. In the morning prior to breakfast & 1 hour after each meal for a total of 4times daily. 1 kit 09/18/2024 09/18/2025 Active clomiPHENE citrate 50 mg oral tablet (8 sources) Estrogen Agonist/Antagonist Start: End: clomiPHENE (Clomid) 50 MG tablet Indications: PCOS (polycystic ovarian syndrome) Take 2 tablets by mouth daily days 5 through 9 of menses 10 tablet 03/24/2024 05/20/2024 Discontinued (Other) Start: 02-22-2024 End: 09-02-2024 CLOMID 50 mg tablet 100 mg. 02/22/2024 09/02/2024 Discontinued Crutches Underarm Crutches (2 sources) Start: 10-10-2021 Start: 10-10-2021 Crutches Under arm Crutches 1 pair diagnosis: left ankle sprain Sep, Active Ethinyl Estradiol / norelgestromin (2 sources) Progestin, Estrogen Ortho Evra A ctive Inositol-D Chiro-Inositol (OVASITOL PO) (16 sources) Inositol-D Chiro-Inositol (OVASITOL PO) Take by mouth 2 (two) times a day Active isopropyl alcohol 0.7 ml/ml medicated pad (8 sources) Start: Alcohol Swabs (Alcohol Prep Pad) 70 % pads Indications: Gestational diabetes mellitus (GDM), antepartum, gestational diabetes method of control unspecified , Elevated glucose tolerance test Apply 1 Pad topically Daily Use four times daily to check FSBS. 150 each 3 09/18/2024 Active metroNIDAZOLE 500 mg oral tablet (1 source) Nitroimidazole Antimicrobial Start: End: take 1 tablet by mouth in the morning metroNIDAZOLE (Flagyl) 500 MG tablet Indications: BV (bacterial vaginosis) Take 1 tablet (500 mg) by mouth in the morning and 1 tablet (500 mg) before bedtime. Do all this for 7 days. Do not drink alcohol while taking this medication. 14 tablet 08/07/2024 08/14/2024 Active Minto (No Known Home Meds) (1 source) Start: Minto (No Known Home Meds) Active June 08, 2023 12:00am omeprazole 20 mg delayed release oral capsule (20 sources) Proton Pump Inhibitor Start: End: take 1 capsule by mouth before mealtime omeprazole (PriLOSEC) [address] capsule Indications: Heartburn Take 1 capsule (20 mg) by mouth in the morning. Take before meals. Do not crush or chew.. 30 capsule 08/05/2024 08/05/2025 Active Start: 12-11-2023 take 1 capsule by [facility] once daily omeprazole 40 mg Cap-DR 40 mg = 1 cap(s), Oral, Daily, # 30 cap(s), Refills(s) 1, Pharmacy: [facility], 168.3, cm, 12/11/23 13:07:00 EDT, Height/Length Dosing, 93.6, kg, 12/11/23 13:07:00 EDT, Weight Dosing Start Date: 12/11/23 Status: Ordered no115/iron/folic acid ( 19 ORAL) (6 sources) no115/i jami/folic acid ( 19 ORAL) Take by mouth. Active Vit-Fe Fumarate-FA (M- Plus) 27-1 MG tablet (20 sources) Start: 07-07-2024 End: 07-07-2025 take 1 [...] Daily 30 tablet 11 06/06/2024 06/06/2025 Active Start: 05-07-2024 End: 06-05-2024 take 1 tablet by mouth once daily Vit-Fe Fumarate-FA (M- Plus) 27-1 MG tablet Indications: Patient desires Take 1 tablet by mouth Daily 30 tablet 11 05/07/2024 06/05/2024 Discontinued (Reorder) Start: 05-07-2024 End: 05-07-2025 take 1 tablet by mouth once daily Vit-Fe Fumarate-FA (M- Plus) 27-1 MG tablet Indications: Patient desires Take 1 tablet by mouth Daily 30 tablet 11 05/07/2024 05/07/2025 Active Completed/Discontinued Medications Medication Drug Class(es) Dates [...] Start: 08-01-2022 take 1 capsule by mo uth three times daily Droxidopa 100 MG Oral [...] fluticasone propionate 0.11 mg/actuat metered dose inhaler (13 sources) Corticosteroid Start: 03-14-2023 End: 08-27-2024 take 1 puff(s) by inhalation in the morning fluticasone (Flovent HFA) 110 MCG/ACT inhaler Indications: Mild intermittent asthma with acute exacerbation (CMS/HCC) Inhale 1 puff in the morning and 1 puff before bedtime. Rinse mouth with water after use to reduce aftertaste and incidence of candidiasis. Do not swallow.. 12 g 5 08/27/2024 08/27/2024 Discontinued Start: 06-01-2022 Flovent HFA 11 0 MCG/ACT Inhalation Aerosol Quantity: 12 Refills: 0 [...] daily. magnesium oxide 400 mg oral tablet (15 sources) Start: 08-05-2024 End: 09-04-2024 take 1 tablet by mouth once daily magnesium oxide (Mag-Ox) 400 MG tablet Indications: Leg cramping Take 1 tablet (400 mg) by mouth Daily 30 tablet 3 08/05/2024 09/04/2024 Start: 06-13-2023 take 1 tablet by efrain th once daily Magnesium Oxide 400 MG Oral Tablet take 1 tablet by mouth once daily Quantity: 30 Refills: 6 Ordered: 13-Jun-2023 Tabatha Savage Start : 13-Jun-2023 Active methotrexate 2.5 mg oral tablet (4 sources) Folate Analog Metabolic Inhibitor Start: 09-11-2022 take 6 tablets by mouth every week [...] Active Start: 07-10-2022 take 0.5 tablet by [facility] times daily Midodrine HCl - 10 [...] Alcaraz MD Start : 10-Jul-2022 Active stop amandainef Trisha 0.25-35 MG-MCG Oral Tablet (20 sources) [...] block; Translations: [Unspecified right bundle-branch block] Onset: Chronic Diabetes mellitus without complication (2 sources) Abnormal glucose tolerance test; Translations: [Other abnormal glucose] 09-18-2024 Episodic Diabetes or abnormal glucose tolerance complicating ; childbirth; or the puerperium (7 sources) Gestational diabetes mellitus; Translations: [Gestational diabetes mellitus in , unspecified control] Onset: 5 09-18-2024 Episodic Esophageal disorders (20 sources) Gastroesophageal reflux disease; Translations: [Gastro-esophageal reflux disease without esophagitis] Onset: 4 12-11-2023 Chronic Headache; including migraine (20 sources) Tension-type headache; Translations: [Tension-type headache, unspecified, not intractable] Onset: 4 03-25-2024 Chronic Joint disorders and dislocations; trauma-related (20 sources) Chondromalacia of right patella; Translations: [Chondromalacia patellae, right knee] Onset: 3 02-17-2023 Chronic Menstrual disorders (20 sources) Dysmenorrhea; Translations: [Dysmenorrhea, unspecified] Onset: 4 [...] and spasm] 08-05-2024 Episodic Other endocrine disorders (20 sources) Polycystic ovary syndrome; Translations: [Polycystic ovarian [...] unspecified] Chronic Other and delivery including normal (20 sources) Second trimester ; Translations: [Encounter for supervision of normal , unspecified, second trimester] Onset: 4 07-03-2024 Episodic Other screening for suspected conditions (not mental disorders or infectious disease) (20 sources) Pulmonary function studies abnormal; Translations: [Nonspecific abnormal results of pulmonary function study] Onset: 3 02-26-2024 Episodic Other upper respiratory infections (2 sources) Acute sinusitis; Translations: [Other acute sinusitis] 09-18-2024 Episodic Residual codes; unclassified (2 sources) Gestation period, 14 weeks; Translations: [14 weeks gestation of ] 07-03-2024 Episodic Residual codes; unclassified (3 sources) Gestation period, 20 weeks; Translations: [20 weeks gestation of ] 08-15-2024 Episodic Residual codes; unclassified (3 sources) Gestation period, 23 weeks; Translations: [23 weeks gestation of ] 09-02-2024 Episodic Residual codes; unclassified (2 sources) Gestation period, 25 weeks; Translations: [25 weeks gestation of ] 09-18-2024 Episodic Residual codes; unclassified (5 sources) Gestation period, 29 weeks; Translations: [29 weeks gestation of ] Onset: 5 10-02-2024 Episodic Residual codes; unclassified (1 source) 20 weeks gestation of ; Translations: [20 weeks gestation of ] Onset: 4 Episodic Superficial injury; contusion (7 sources) Contusion of elbow; Translations: [Contusion of unspecified elbow, initial encounter] 09-20-2019 Episodic Unclassified (1 source) [place] Onset: 4 Past or Other Problems Problem Classification Problem Date Documented Da te Episodic/Chronic Cardiac dysrhythmias (20 sources) Palpitations; Translations: [Palpitations] Onset: 08-13-2023 06-16-2023 Episodic Immunizations and screening for infectious disease (20 sources) Patient encounter status; Translations: [Encounter for immunization] Onset: 07-05-2023 03-25-2024 Episodic Influenza (20 sources) Influenza due to Influenza A virus; Translations: [Influenza due to other identified influenza virus with other respiratory manifestations] Onset: 08-27-2024 Resolved: 08-27-2024 06-01-2022 Episodic Joint disorders and dislocations; trauma-related (20 sources) Tear of medial meniscus of knee; Translations: [Other tear of medial meniscus, current injury, unspecified knee, initial encounter] Onset: 02-26-2024 07-26-2021 Episodic Nonspecific chest pain (20 sources) Atypical chest pain; Translations: [Other chest pain] Onset: 08-13-2023 06-16-2023 Episodic Other bone disease and musculoskeletal deformities (20 sources) Chondromalacia; Translations: [Chondromalacia, unspecified site] Onset: 02-26-2024 02-26-2024 Episodic Other connective tissue disease (20 sources) Pain in right thumb; Translations: [Pain in right finger(s)] Onset: 02-26-2024 Resolved: 08-27-2024 02-26-2024 Episodic Other connective tissue disease (20 sources) Radial styloid tenosynovitis; Translations: [Radial styloid [...] Spondylosis; intervertebral disc disorders; other back problems (20 sources) Sciatica; Translations: [Sciatica, unspecified side] Onset: [...] NEGATED: Highlighted row has been ruled out!Unclassified (6 sources) No known active problems 02-19-2018 Results Test Name Value Interpretation Reference Range Facility Urinalysis macro (dipstick) panel (U)on 10-02-2024 Bilirubin, UA Negative Negative - 4(70) +++ mg/dL [facility] Blood, UA Negative Negative - 50 Vasu/mcL [facility] Clarity, UA Clear [facility] Color, UA Yellow [facility] Glucose, UA Negative Negative - 2000(110) ++++ mg/dL [facility] Interpretation and review of laboratory results Abnormal [facility] Ketones, UA Positive Negative - 160(16) ++++ mg/dL [facility] Comment on above: 40 Leukocytes, UA Trace Negative - 500+++ Conrad/mcL [facility] Nitrite, UA Negative Negative - Positive [facility] pH, UA 6 5 - 9 [facility] Protein, UA Positive Negative - 2000(20) ++++ mg/dL [facility] Comment on above: 30 Spec Grav, UA 1.03 1 - 1.03 [facility] Urobilinogen, UA 0.2 0.2 - 12 mg/dL [facility] UA (CLEAN/CATCH) JAVA TECHNICAL MANAGER/YOUSIF RO IF IND.on 09-25-2024 BILIRUBIN URINE Negative NEGATIVE [facility] BLOOD URINE Negative NEGATIVE [facility] Clarity (U) CLEAR CLEAR [facility] Color (U) LT. YELLOW YELLOW [facility] GLUCOSE URINE UA 250 mg/dL Abnormal NEGATIVE [facility] Interpretation and review of laboratory results Abnormal [facility] Ketones Ql (U) Negative NEGATIVE mg/dL [facility] Leukocyte esterase Test strip Ql (U) SMALL Abnormal NEGATIVE [facility] NITRITE URINE Negative NEGATIVE [facility] pH (U) 6.0 [pH] 5.0 - 9.0 [facility] PROTEIN URINE Negative NEG/TRACE mg/dL [facility] SPECIFIC GRAVITY URINE 1.020 1.005 - 1.025 [facility] URINE MICROSCOPIC INDICATED YES [facility] UROBILINOGEN URINE 0.2 EU/dL 0.2 - 1.0 EU/dL [facility] Urinalysis macro (dipstick) panel (U)on 09-18-2024 Bilirubin, UA Negative Negative - 4(70) +++ mg/dL [facility] Blood, UA Negative Negative - 50 Vasu/mcL [facility] Clarity, UA Clear [facility] Color, UA Yellow [facility] Glucose, UA Positive Negative - 1999(110) ++++ mg/dL [facility] Comment on above: 100 Interpretation and review of laboratory results Abnormal [facility] Ketones, UA Negative Negative - 160(16) ++++ mg/dL [facility] Leukocytes, UA Positive Negative - 500+++ Conrad/mcL [facility] Comment on above: small Nitrite, UA Negative Negative - Positive [facility] pH, UA 7 5 - 9 [facility] Protein, UA Trace Negative - 1999(20) ++++ mg/dL [facility] Spec Grav, UA 1.02 1 - 1.03 [facility] Urobilinogen, UA 0.2 0.2 - 12 mg/dL [facility] Urinalysis macro (dipstick) panel (U)on 09-03-2024 Bilirubin, UA Negative Negative - 4(70) +++ mg/dL [facility] Blood, UA Negative Negative - 50 Vasu/mcL [facility] Clarity, UA Clear [facility] Color, UA Yellow [facility] Glucose, UA Many Negative - 1999(110) ++++ mg/dL [facility] Interpretation and review of laboratory results Abnormal [facility] Ketones, UA Positive Negative - 160(16) ++++ mg/dL [facility] Leukocytes, UA Positive Negative - 500+++ Conrad/mcL [facility] Nitrite, UA Negative Negative - Positive [facility] pH, UA 6.5 5 - 9 [facility] Protein, UA Moderate Negative - 1999(20) ++++ mg/dL [facility] Spec Grav, UA 1.025 1 - 1.03 [facility] Urobilinogen, UA 0.2 0.2 - 12 mg/dL [facility] GLUCOSE TOLERANCE 3 HOURon 1 2-09-2024 GLUCOSE TOLERANCE 3 HOUR High mg/dL [facility] Comment on above: GLU FAST 86 (<95) Co l: 09/01/24 0818 GLU 1HR 162 (<180) Col: 09/01/24 0919 GLU 2HR 156H (<155) Col: 09/01/24 1019 GLU 3HR 110 (<140) Col: 09/01/24 1119 Interpretation and review of laboratory results Abnormal [facility] ALL CBC WITH AUTO DIFFon BASOPHILS ABSOLUTE AUTO 0 [facility] Basophils/100 WBC (Bld) 0.2 % 0.2 - 2.0 % [facility] Eosinophils/100 WBC (Bld) 0.7 % Low 0.9 - 7.0 % [facility] Erythrocyte distribution width (RBC) [Ratio] 13.6 % 11.0 - 15.0 % [facility] Hematocrit (Bld) [Volume fraction] 32.9 % Low 36.0 - 48.0 % [facility] Hemoglobin (Bld) [Mass/Vol] 11.1 g/dL Low 12.0 - 16.0 g/dL [facility] IMMATURE GRANULOCYTES ABS AUTO 0.11 High [facility] Immature granulocytes/100 WBC (Bld) 1.1 % High 0.0 - 0.5 % [facility] Interpretation and review of laboratory results Abnormal [facility] LYMPHOCYTES ABSOLUTE AUTO 1.3 [facility] Lymphocytes/100 WBC (Bld) 13 % Low 20.5 - 60.0 % [facility] MCH (RBC) [Entitic mass] 29.6 pg 26.7 - 34.0 pg [facility] MCHC (RBC) [Mass/Vol] 33.7 g/dL 29.9 - 35.2 g/dL [facility] MCV (RBC) [Entitic vol] 87.7 fL 81.0 - 99.0 fL [facility] MONOCYTES ABSOLUTE AUTO 0.6 [facility] Monocytes/100 WBC (Bld) 5.5 % 1.7 - 12.0 % [facility] NEUTROPHILS ABSOLUTE AUTO 7.9 High [facility] Neutrophils/100 WBC (Bld) 79.5 % High 43.0 - 75.0 % [facility] Platelet mean volume (Bld) [Entitic vol] 10.3 fL 9.5 - 13.5 fL [facility] EO # 0.1 [facility] [address]T [address] [facility] RBC 3.75 Low [facility] WBC 9.9 [facility] IGP,APTIMA HPV,AGE GDLNon AGE GDLN ACOG TESTING Note . [facility] Comment on above: TESTS RESULT FLAG UN ITS REF RANGE LAB Clinician Provided Cytology Information Source.............Cervix No. of containers..01 ThinPrep Vial Age Algo ACOG Maureen... FLAG LEGEND: L-Low Normal,H-High Normal,LL-Alert Low,HH-Alert High <-Panic Low,>-Panic High,A-Abnormal,AA-Critical Abnormal Performed at: 01 =[facility] [id number] Toya Wilson MD, IGP, RFX APTIMA HPV ASCU Note . [facility] Comment on above: TESTS RESULT FLAG UN ITS REF RANGE LAB DIAGNOSIS: 02 NEGATIVE FOR INTRAEPITHELIAL LESION OR MALIGNANCY. Specimen adequacy: 02 Satisfactory for evaluation. No endocervical component is identified. Performed by: 02 Imelda Miranda, Drive Sh[employer] Steering Post Repairer (ASCP) . 02 Note: Note 02 The Pap [...] <-Panic Low,>-Panic High,A-Abnormal,AA-Critical Abnormal Performed at: [address] [id number] Toya Wilson MD, Performed at: =G - [facility] [id number] [employer] Feeder: Toya Wilson MD, Phone: [phone] Performed at: - [facility] [id number] [place] Sorting Machine Feeder: Toya Wilson MD, Phone: [phone] [facility] AFP, SERUM, OPEN SPINA BIFID Aon 08-13-2024 AFP MOM 2.24 . [facility] AFP VALUE 103.1 ng/mL . [facility] COMMENT: Comment . [facility] Comment on above: Joyce Reina , Ph.D., [facility] Director References: Available Upon Request. Multiples Of Median Cutoffs For AFP Elevations Harrington 2.5 Black 2.8 IDD 2.0 Twins 4.5 Abbreviation Definitions IDD - Insulin Dep Diabetes OSBR - Open Spina Bifida Risk For further inquiries contact [facility] at [phone]. This test was developed and its performance characteristics determined by [employer]. It has not been cleared or approved by the Food and Drug Administration. Performed at: [facility] [address], [place] [id number] [employer] Sorting Machine Feeder: Angel Regan [facility], Phone: [phone] GEST. AGE ON COLLECTION DATE 20.3 . weeks [facility] GESTAT. AGE BASED ON LMP . [facility] Comment on above: Recalculations are n ot recommended when gestational dating by LMP and ultrasound are within 10 days. INSULIN DEP DIABETES No . [facility] INTERPRETATION Comment . [facility] Comment on above: Interpretation: Scre en Negative [...] Customer Services to discuss available options. [employer] recommends amniocentesis be offered to women age 35 and older. [age] [facility] MULTIPLE GESTATION Twins . [facility] OSBR RISK 1 IN 1081 . [facility] RACE . [facility] RESULTS Report . [facility] TEST RESULTS: Negative . [facility] WEIGHT 219 . lbs [facility] N N LMP [id number] 3 19 N 2 Y 219 N N N N N White/ [facility] US for pregnancyon 4 [facility] Coding ====== Procedures 43812: Comprehensive Detailed Anatomy Ultrasound 55732: Comprehensive Detailed Anatomy Ultrasound- Additional Fetus 21007: Transvaginal Ultrasound (OB) Indication ======== Di-Di twin [...] 0 lb 13 oz EFW by Hadlock ([id number]) EFW discordance 10.9 % Head / Face / Neck Biometry: Cephalic index 0.81 73% [address] Shaft [employer] Steering Post Repairer 6.4 mm CM 4.4 mm 26% Nicolaides [...] 0 lb 14 oz EFW by Hadlock ([id number]) EFW discordance 10.9 % Head / Face / Neck Biometry: Cephalic index 0.71 1% [address] Shaft And Steering Post Repairer 6.8 mm CM 4.3 mm 23% Nicolaides [...] Heart / Th (more content not included)... [facility] Radiologi MD billy - 08/13/2024 THIS EXAM WAS PERFORMED AT [facility] Coding ====== Procedures 32122: Comprehensive Detailed Anatomy Ultrasound 66279: Comprehensive Detailed Anatomy Ultrasound- Additional Fetus 01576: Transvaginal Ultrasound (OB) Indication ======== Di-Di twin [...] 0 lb 13 oz EFW by Hadlock ([id number]) EFW discordance 10.9 % Head / Face / Neck Biometry: Cephalic index 0.81 73% [address] Shaft And Steering Post Repairer 6.4 mm CM 4.4 mm 26% Nicolaides [...] 0 lb 14 oz EFW by Hadlock (ZUX-[id number]) EFW discordance 10.9 % Head / Face / Neck Biometry: Cephalic index 0.71 1% [address] Shaft And Steering Post Repairer 6.8 mm CM 4.3 mm 23% Nicolaides [...] Heart / Thorax 4-chamber view. 3-vessel view. 6-xfwqjx-knmtctq view. Interventricular septum. Diaphragm. Abdomen Right renal [...] Nuchal fold. F (more content not included)... [facility] Radiology Study observation (narrative) [facility] US for pregnancyOrdered By: Radiologist Radiology on 08-13-2024 [facility] Work Phone: RECURRENT VAGINITIS (HTRX)on 08-07-2024 ATOPOBIUM VAGINAE 29.356 Abnormal [facility] ATOPOBIUM VAGINAE Detected Abnormal [facility] BVAB 2,3 (BACTERIAL VAGINOSIS ASSOCIATED BACTERIA 2, 3); MOBILUNCUS SPP 0 [facility] BVAB 2,3 (BACTERIAL VAGINOSIS ASSOCIATED BACTERIA 2, 3); MOBILUNCUS SPP Not detected [facility] SANTHOSH ALBICANS, PARAPSILOSIS, TROPICALIS 0 [facility] SANTHOSH ALBICANS, PARAPSILOSIS, TROPICALIS Not detected [facility] GLABRATA 0 [facility] SANTHOSH GLABRATA Not detected [facility] KRUSEI 0 [facility] SANTHOSH KRUSEI Not detected [facility] CHLAMYDIA TRACHOMATIS 0 [facility] CHLAMYDIA TRACHOMATIS Not detected N [facility] GARDNERELLA VAGINALIS 0 NOM S [facility] GARDNERELLA VAGINALIS Not detected N [facility] Interpretation and review of laboratory results Abnormal [facility] MEGASPHAERA (TYPES 1, 2) 0 [facility] MEGASPHAERA (TYPES 1, 2) Not detected [facility] MYCOPLASMA GENITALIUM 0 NOM S [facility] MYCOPLASMA GENITALIUM Not detected N [facility] NEISSERIA GONORRHOEAE 0 [facility] NEISSERIA GONORRHOEAE Not detected N [facility] TRICHOMONAS VAGINALIS 0 [facility] TRICHOMONAS VAGINALIS Not detected N [facility] Urinalysis macro (dipstick) panel (U)on 08-05-2024 Bilirubin, UA Negative Negative - 4(70) +++ mg/dL [facility] Blood, UA Negative Negative - 50 Vasu/mcL [facility] Clarity, UA Clear [facility] Color, UA Yellow [facility] Glucose, UA Negative Negative - 1999(110) ++++ mg/dL [facility] Interpretation and review of laboratory results Normal [facility] Ketones, UA Negative Negative - 160(16) ++++ mg/dL [facility] Leukocytes, UA Negative Negative - 500+++ Conrad/mcL [facility] Nitrite, UA Negative Negative - Positive [facility] pH, UA 5.5 5 - 9 [facility] Protein, UA Negative Negative - 2000(20) ++++ mg/dL [facility] Spec Grav, UA 1.02 1 - 1.03 [facility] Urobilinogen, UA 1.0 0.2 - 12 mg/dL [facility] Urinalysis macro (dipstick) panel (U)on 07-03-2024 Bilirubin, UA Negative Negative - 4(70) +++ mg/dL [facility] Blood, UA Negative Negative - 50 Vasu/mcL [facility] Clarity, UA Clear [facility] Color, UA Yellow [facility] Glucose, UA Positive Negative - 1999(110) ++++ mg/dL [facility] Comment on above: 500 Interpretation and review of laboratory results Abnormal [facility] Ketones, UA Negative Negative - 160(16) ++++ mg/dL [facility] Leukocytes, UA Negative Negative - 500+++ Conrad/mcL [facility] Nitrite, UA Negative Negative - Positive [facility] pH, UA 6.0 5 - 9 [facility] Protein, UA Negative Negative - 1999(20) ++++ mg/dL [facility] Spec Grav, UA 1.015 1 - 1.03 [facility] Urobilinogen, UA 0.2 0.2 - 12 mg/dL [facility] Urinalysis macro (dipstick) panel (U)Ordered By: Ibis Sandoval on 06-04-2024 Bilirubin, UA Negative Negative - 4(70) +++ mg/dL [facility] Blood, UA Positive Negative - 50 Vasu/mcL [facility] Comment on above: trace-intact Clarity, UA Clear [facility] Color, UA Yellow [facility] Glucose, UA Negative Negative - 1999(110) ++++ mg/dL [facility] Interpretation and review of laboratory results Abnormal [facility] Ketones, UA Negative Negative - 160(16) ++++ mg/dL [facility] Leukocytes, UA Trace Negative - 500+++ Conrad/mcL [facility] Nitrite, UA Negative Negative - Positive [facility] pH, UA 5.5 5 - 9 [facility] Protein, UA Negative Negative - 1999(20) ++++ mg/dL [facility] Spec Grav, UA 1.005 1 - 1.03 [facility] Urobilinogen, UA 0.2 0.2 - 12 mg/dL [facility] ALL CBC WITH AUTO DIFFon BASOPHILS ABSOLUTE AUTO 0.0 [facility] Basophils/100 WBC (Bld) 0.5 % 0.2 - 2.0 % [facility] Eosinophils/100 WBC (Bld) 0.5 % Low 0.9 - 7.0 % [facility] Erythrocyte distribution width (RBC) [Ratio] 11.9 % 11.0 - 15.0 % [facility] IMMATURE GRANULOCYTES ABS AUTO 0.03 [facility] Immature granulocytes/100 WBC (Bld) 0.4 % 0.0 - 0.5 % [facility] Interpretation and review of laboratory results Abnormal [facility] LYMPHOCYTES ABSOLUTE AUTO 1.8 [facility] Lymphocytes/100 WBC (Bld) 23.3 % 20.5 - 60.0 % [facility] MCH (RBC) [Entitic mass] 29.7 pg 26.7 - 34.0 pg [facility] MCHC (RBC) [Mass/Vol] 34.9 g/dL 29.9 - 35.2 g/dL [facility] MCV (RBC) [Entitic vol] 85.1 fL 81.0 - 99.0 fL [facility] MONOCYTES ABSOLUTE AUTO 0.5 [facility] Monocytes/100 WBC (Bld) 6.3 % 1.7 - 12.0 % [facility] NEUTROPHILS ABSOLUTE AUTO 5.4 [facility] Neutrophils/100 WBC (Bld) 69.0 % 43.0 - 75.0 % [facility] Platelet mean volume (Bld) [Entitic vol] 10.3 fL 9.5 - 13.5 fL [facility] TBH EO # 0.0 [facility]H PLT 206 [facility] RBC 4.55 [facility] WBC 7.8 [facility] Laboratory - Hematology and Cell countson 05-24-2024 Hematocrit (Bld) [Volume fraction] 38.7 % [facility] Hemoglobin (Bld) [Mass/Vol] 13.5 g/dL [facility] No Panel Informationon 05-24 [facility] HCG ( test) Ql (U)o n 05-23-2024 Interpretation and review of laboratory results Abnormal [facility] Preg Test, Ur Positive [facility] Urinalysis macro (dipstick) panel (U)on 05-23-2024 Bilirubin, UA Negative Negative - 4(70) +++ mg/dL [facility] Blood, UA Negative Negative - 50 Vasu/mcL [facility] Clarity, UA Clear [facility] Color, UA Yellow [facility] Glucose, UA Negative Negative - 2000(110) ++++ mg/dL [facility] Interpretation and review of laboratory results Normal [facility] Ketones, UA Negative Negative - 160(16) ++++ mg/dL [facility] Leukocytes, UA Negative Negative - 500+++ Conrad/mcL [facility] Nitrite, UA Negative Negative - Positive [facility] pH, UA 7.0 5 - 9 [facility] Protein, UA Negative Negative - 2000(20) ++++ mg/dL [facility] Spec Grav, UA 1.025 1 - 1.03 [facility] Urobilinogen, UA 1.0 0.2 - 12 mg/dL [facility] CHEMISTRYOrdered By: SYSTEM SYSTEM on 04-12-2024 Progesterone [...] Progesterone Lvl 31.70 ng/mL Invalid Interpretation Code [facility] Comment on above: Result Comment: 'F N ON FOLLICULAR = 0.10 - 0.60' 'LUTEAL = 3.00 - 17.5' 'MIDLUTEAL = 3.30 - 18.6' 'POST-MENOPAUSE = 0.10 - 0.40' '-FIRST TRIMESTER = 8.30 - 66.5' 'SECOND TRIMESTER = 18.9 - 66.1' 'THIRD TRIMESTER = 35.8 - 312.4' 'MALES = 0.14 - 2.06' Performed By: #### 2 [id number] #### [facility] [address] [place] [address] CHEMISTRYOrdered By: SYSTEM SYSTEM on 03-14-2024 Progesterone [...] Consent for Treatmenton 02-23 Consent for Treatment [id number] Normal [facility] Physician Orderon 03-14-2024 Physician Order [id number]#[id number] Normal [facility] Progesteroneon 03-14-2024 Progesterone Lvl 16.15 ng/mL Invalid Interpretation Code [facility] Comment on above: Result Comment: 'F N ON FOLLICULAR = 0.10 - 0.60' 'LUTEAL = 3.00 - 17.5' 'MIDLUTEAL = 3.30 - 18.6' 'POST-MENOPAUSE = 0.10 - 0.40' '-FIRST TRIMESTER = 8.30 - 66.5' 'SECOND TRIMESTER = 18.9 - 66.1' 'THIRD TRIMESTER = 35.8 - 312.4' 'MALES = 0.14 - 2.06' Performed By: #### 2 [id number] #### [facility] [address] [place] [address] Ambulatory Visit Summaryon 0 12-11-2023 Ambulatory Visit [...] 11:20 AM EDT With: Krista Daley Where: 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 BMI 33.0-33.9,adult (Z68.33: Body mass index [BMI] 33.0-33.9, adult) BMI education complete Ordered: omeprazole, 40 mg = 1 cap(s), Oral, Daily, # 30 cap(s), Refills(s) 1, Pharmacy: [facility], 168.3, cm, 12/11/23 13:07:00 EDT, Height/Length Dosing, 93.6, kg, 12/11/23 13:07:00 EDT, Weight Dosing 3. Class 1 obesity due to excess calories in adult (E66.09: Other obesity due to excess calories) see above Ordered: omeprazole, 40 mg = 1 cap(s), Oral, Daily, # 30 cap(s), Refills(s) 1, Pharmacy: [facility], 168.3, cm, 12/11/23 13:07:00 EDT, Height/Length Dosing, 93.6, kg, 12/11/23 13:07:00 EDT, Weight Dosing 4. Nonsmoker (Z78.9: Other specified health status) continue not smoking Ordered: omeprazole, 40 mg = 1 cap(s), Oral, Daily, # 30 cap(s), Refills(s) 1, Pharmacy: [facility], 168.3, cm, 12/11/23 13:07:00 EDT, Height/Length [...] 03/05/2002 Recorded (more content not included)... Normal [facility] Comment on above: Result Comment: Elec tronically Signed By: Krista Daley\.braxton\Date and Time Signed: 12/11/23 13:32 EDT CNOVon 11-30-2023 CNOV Office Visit (NENMMN ) ----- MADYSON MAI ([id number]) 2 F Date Time Provider Department 11/30/23 10:00 AM JYOTI DICKEY NENMMN During your visit today, we recorded the following information about you: Pulse Blood pressure Weight Height 84/minute 118/79 93 kg 1.651 m Jyoti Dickey PA-C 11/30/2023 11:14 AM Signed [facility] Neuromuscular Medicine New Patient Evaluation Madyson Mai [...] experienced LOC while walking up the stairs. [place] prodromal symptoms including lightheadedness and tunnel vision. [...] Urination: + (more content not included)... Normal [facility] ECHOon 11-12-2023 Echocardiography Echocardiography Rep ort: Transthoracic Echo [facility] A17 Date of service: 11/12/2023 1:08:10 PM DEVELOPMENT INTERN Ordering physician: AURORA SANTIAGO Indication: Initial evaluation [...] * * Final * * * CC [employer] [facility] : [id number] Normal [facility] CNOVon 10-10-2023 CNOV Office Visit (NEADMN ) ----- PEREZMADYSON DOAN ([id number]) 2 F Date Time Provider Department 10/10/23 2:00 PM AURORA SANTIAGO During your visit today, we recorded the following information about you: Pulse Blood pressure Weight Height 108/minute 119/85 93 kg 1.651 m Aurora Santiago PA-C 10/10/2023 4:33 PM Signed [facility] for Neuromuscular Medicine New Patient Evaluation CHIEF COMPLAINT: to rule out autonomic disorder Madyson Schmid is a 22 year old female with history of Orthostatic intolerance, right knee patellofemoral pain, obesity. She is accompanied by -bambi and mother in law-iFfi. Self referred HPI: As per chart review: [...] on BC (more content not included)... Normal [facility] Quantiferon-TB Plus (Client Incubated)on 07-26-2023 Gamma interferon background IA Qn (Bld) 0.01 International_Unit/mL Invalid Interpretation Code [facility] Comment on above: Performed By: #### 1 [id number], [id number], [id number] #### [facility] [address] [place] [address] M. tuberculosis stim IFN-g by CD4+ CD8+ T-cells Qn (Bld) 0.30 International_Unit/mL Invalid Interpretation Code [facility] Comment on above: Performed By: #### 1 [id number], [id number], [id number] #### [facility] [address] [place] [address] M. tuberculosis stim IFN-g by CD4+ T-cells Qn (Bld) 0.23 International_Unit/mL Invalid Interpretation Code [facility] Comment on above: Performed By: #### 1 [id number], [id number] #### [facility] [address] [place] [address] M. tuberculosis stim IFN-g Ql (Bld) [Interp] Negative Invalid Interpretation Code Negative [facility] Comment on above: Result Comment: No [...] interferon gamma. Chemiluminescence immunoassay methodology Performed at: [employer] [id number] PhD Rubio Vinson Performed By: #### 1 [id number], [id number], [id number], [id number] #### [facility] [address] [place] [address] Mitogen stimulated gamma interferon Qn (Bld) >10.00 Invalid Interpretation Code [facility] Comment on above: Performed By: #### 1 [id number], [id number], [id number] #### [facility] [address] [place] [address] Service comment (Unsp spec) [Interp] Comment Invalid Interpretation Code [facility] Comment on above: Result Comment: Link [...] for the test. Performed By: #### 1 [id number], [id number], [id number], [id number] #### [facility] [address] [place] [address] Hep Bs Abon 07-25-2023 HBV surface Ab Ql (S) Non-Reactive Invalid Interpretation Code [facility] Comment on above: Result Comment: Non Reactive: Inconsistent with immunity, less than 10 mIU/mL Reactive: Consistent with immunity, greater than 9.9 mIU/mL Performed at: [employer] [id number] PhD Rubio Vinson Performed By: #### 1 [id number], [id number], [id number], [id number] #### [facility] [address] [place] [address] Measles/Mumps/Rubella Immuni tyon 07-25-2023 MeV IgG IA Qn (S) 34.3 A unit/mL Invalid Interpretation Code Immune >16.4 [facility] Comment on above: Result Comment: Nega tive <13.5 Equivocal 13.5 - 16.4 Positive >16.4 Presence of antibodies to Rubeola is presumptive evidence of immunity except when acute infection is suspected. Performed By: #### 1 [id number], [id number], [id number], [id number] #### [facility] [address] [place] [address] MuV IgG IA Qn (S) <9.0 Low Immune >10.9 [facility] Comment on above: Result Comment: Nega tive <9.0 Equivocal 9.0 - 10.9 Positive >10.9 A positive result generally indicates past exposure to Mumps virus or previous vaccination. Performed at: [facility] [address] [place], [place] [id number] PhD Rubio Vinson Performed By: #### 1 [id number], [id number], [id number], [id number] #### [facility] [address] [place] [address] Rubella virus IgG Qn (S) 1.53 [IU]/mL Invalid Interpretation Code Immune >0.99 [facility] Comment on above: Result Comment: Non- immune <0.90 Equivocal 0.90 - 0.99 Immune >0.99 Performed By: #### 1 [id number], [id number], [id number] #### [facility] [address] [place] [address] Varic IgGon 07-25-2023 VZV IgG IA Qn (S) 475 Invalid Interpretation Code Immune >165 [facility] Comment on above: Result Comment: Nega tive <135 Equivocal 135 - 165 Positive >165 A positive result generally indicates exposure to the pathogen or administration of specific immunoglobulins, but it is not indication of active infection or stage of disease. Performed at: [facility] [id number] PhD Rubio Vinson Performed By: #### 1 [id number], [id number], [id number], [id number] #### [facility] [address] [place] [address] CNOVon 07-10-2023 CNOV Office Visit (ORFWHP ) ----- MADYSON SCHMID ([id number]) 2 F Date Time Provider Department 07/10/23 9:40 AM JOSE ARMANDO GREY ORFWHP During your visit today, we recorded the following information about you: Jose Armando Grey DO 07/10/2023 10:[address] [facility] Office Visit Documentation Note [facility] Sports Medicine Orthopaedic and Rheumatologic [place] HISTORY OF PRESENT ILLNESS (HPI) CHIEF COMPLAINT / REASON FOR VISIT SERVICE DATE: July 10, 2023 PCP: No primary care provider on file. Madyson Schmid is here today at request of Dr. Jose Armando Schmid specifically for consultation of my opinion in regards to the chief complaint listed below. Correspondence will be shared today via the ITN electronic health record or through regular mail, where applicable. 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 Reaction knee brace Consider [place] toradol, did discuss orthobiologics Follow up: Films prior to visit: Written instructions (see patient instructions) and verbal health education given to patient. Patient verbalizes understanding and agrees with the treatment plan. Jose Armando Grey D.O. [facility] Orthopaedic and Rheumatologic [place], [facility] AND Mark Program Team Physician, [facility] [employer] Consulting Physician, [place] Martin Nagel, Court Registry Officer [phone] Referring Provider: SELF [200] Allergies As of [...] Level of (more content not included)... [facility] Tobacco Screening.on 023 Adult depression screening assessment No [facility] 600 DO Work Phone: Tobacco use status [facility]PH[facility] b) No [facility] 600 DO Work Phone: Activated partial thrombopla stin time (aPTT) in platelet poor plasma by coagulation aOrdered By: Haris Martino on 06-08-2023 aPTT Coag (PPP) [Time] 28.9 s 25.1-36.5 [facility] Comment on above: A hematocrit value g reater than 55% may lead to inaccurate results in coagulation testing. Patients having hematocrit values >55% require a special collection tube for coagulation studies. Please contact the laboratory at [phone] for redraw instructions. Alanine aminotransferase [En zymatic activity/volume] in Serum or PlasmaOrdered By: Haris Martino on 06-08-2023 ALT [Catalytic activity/Vol] 42 U/L 7-52 [facility] Albumin [Mass/volume] in Ser um or Plasma by Bromocresol green (BCG) dye binding methoOrdered By: Haris Martino on 06-08-2023 Albumin BCG dye [Mass/Vol] 4.6 g/dL 3.5-5.7 [facility] Alkaline phosphatase [Enzyma tic activity/volume] in Serum or PlasmaOrdered By: Haris Martino on 06-08-2023 ALP [Catalytic activity/Vol] 78 U/L 34-104 [facility] Aspartate aminotransferase [ Enzymatic activity/volume] in Serum or PlasmaOrdered By: Haris Martino on 06-08-2023 AST [Catalytic activity/Vol] 22 U/L 13-39 [facility] Automated erythrocytes count in urine sediment (number/area)Ordered By: Haris Martino on 06-08-2023 RBC Auto (Urine sed) [#/Area] 5-9 [HPF] 0-4 [facility] Automated leukocytes count i n urine sediment (number/area)Ordered By: Haris Martino on 06-08-2023 WBC Auto (Urine sed) [#/Area] 3-4 [HPF] 0-4 [facility] Basophils Auto (Bld) [#/Vol] Ordered By: Haris Martino on 06-08-2023 Basophils (Bld) [#/Vol] 0.1 10*3/uL 0.0-0.2 [facility] Basophils/100 WBC Auto (Bld) Ordered By: Haris Martino on 06-08-2023 Basophils/100 WBC (Bld) 1.0 % . [facility] Bilirubin Test strip Ql (U)O rdered By: Haris Martino on 06-08-2023 Bilirubin Ql (U) Negative Negative [facility] Bilirubin.direct [Mass/volum e] in Serum or PlasmaOrdered By: Haris Martino on 06-08-2023 Bilirubin.direct [Mass/Vol] 0.10 mg/dL 0.03-0.18 [facility] Bilirubin.total [Mass/volume ] in Serum or PlasmaOrdered By: Haris Martino on 06-08-2023 Bilirubin [Mass/Vol] 0.4 mg/dL 0.3-1.0 [facility] Calcium [Mass/volume] in Ser um or PlasmaOrdered By: Haris Martino on 06-08-2023 Calcium [Mass/Vol] 9.4 mg/dL 8.6-10.3 [facility] Carbon dioxide, total [Moles /volume] in Serum or PlasmaOrdered By: Haris Martino on 06-08-2023 CO2 [Moles/Vol] 29.3 mmol/L 21.0-31.0 [facility] Chloride [Moles/volume] in S colin or PlasmaOrdered By: Haris Martino on 06-08-2023 Chloride [Moles/Vol] 104 mmol/L 98-107 [facility] Color Auto (U)Ordered By: Terrell red Salena on 06-08-2023 Color (U) Yellow Yellow [facility] Creatine kinase [Enzymatic a ctivity/volume] in Serum or PlasmaOrdered By: Haris Martino on 06-08-2023 CK [Catalytic activity/Vol] 55 U/L 30-223 [facility] Creatinine [Mass/volume] in Serum or PlasmaOrdered By: Haris Martino on 06-08-2023 Creatinine [Mass/Vol] 0.64 mg/dL 0.60-1.20 [facility] Eosinophils Auto (Bld) [#/Vo l]Ordered By: Haris Martino on 06-08-2023 Eosinophils (Bld) [#/Vol] 0.1 10*3/uL 0.0-0.45 [facility] Eosinophils/100 WBC Auto (Bl d)Ordered By: Haris Martino on 06-08-2023 Eosinophils/100 WBC (Bld) 0.8 % . [facility] Erythrocyte distribution wid th Auto (RBC) [Ratio]Ordered By: Haris Martino on 06-08-2023 Erythrocyte distribution width (RBC) [Ratio] 12.9 % 11.9-15.3 [facility] Fibrin D-dimer [Presence] in Platelet poor plasma by Latex agglutinationOrdered By: Haris Martino on 06-08-2023 Fibrin D-dimer LA Ql (PPP) < 200 ng/mL 0-243 [facility] Comment on above: The [...] coagulation studies. Please contact the laboratory at [phone] for redraw instructions. Globulin Calc (S) [Mass/Vol] Ordered By: Haris Martino on 06-08-2023 Globulin (S) [Mass/Vol] 2.9 g/dL [facility] Glucose [Mass/volume] in Ser um or PlasmaOrdered By: Haris Martino on 06-08-2023 Glucose [Mass/Vol] 79 mg/dL 70-100 [facility] Comment on above: ADA recommended refe rence rangeRandom Glucose Reference Range is dependent on time and content of last meal. Glucose of more than 200 mg/dL in a nonstressed, ambulatory subject supports the diagnosis of Diabetes Mellitus. HCG ( test) IA.rapi d Ql (U)Ordered By: Haris Martino on 06-08-2023 HCG ( test) Ql (U) Negative [facility] Hematocrit Auto (Bld) [Volum e fraction]Ordered By: Haris Martino on 06-08-2023 Hematocrit (Bld) [Volume fraction] 42.4 % 34.0-46.4 [facility] Hemoglobin [Mass/volume] in BloodOrdered By: Haris Martino on 06-08-2023 Hemoglobin (Bld) [Mass/Vol] 14.5 g/dL 11.8-15.4 [facility] INR in Platelet poor plasma by Coagulation assayOrdered By: Haris Martino on 06-08-2023 INR Coag (PPP) [Relative time] 1.0 {INR} [facility] Comment on above: INR [...] on 06-08-2023 Ketones (U) [Mass/Vol] Negative Negative [facility] Laboratory - UrinalysisOrder ed By: Haris Martino on 06-08-2023 Hyaline casts LM Ql (Urine sed) 0-8 [LPF] 0-8 [facility] Leukocytes [#/volume] correc matt for nucleated erythrocytes in Blood by Automated counOrdered By: Haris Martino on 06-08-2023 WBC corrected for nucl RBC Auto (Bld) [#/Vol] 8.3 10*3/uL 3.8-11.6 [facility] Lymphocytes Auto (Bld) [#/Vo l]Ordered By: Haris Martino on 06-08-2023 Lymphocytes (Bld) [#/Vol] 3.0 10*3/uL 1.00-4.8 [facility] Lymphocytes/100 WBC Auto (Bl d)Ordered By: Haris Martino on 06-08-2023 Lymphocytes/100 WBC (Bld) 36.0 % . [facility] MCH Auto (RBC) [Entitic mass ]Ordered By: Haris Martino on 06-08-2023 MCH (RBC) [Entitic mass] 29.4 pg 24.7-34.3 [facility] MCHC Auto (RBC) [Mass/Vol]Or dered By: Haris Martino on 06-08-2023 MCHC (RBC) [Mass/Vol] 34.2 g/dL 32.0-35.0 [facility] MCV Auto (RBC) [Entitic vol] Ordered By: Haris Martino on 06-08-2023 MCV (RBC) [Entitic vol] 85.9 fL 80-100 [facility] Monocyte distribution width [Entitic volume] in Blood by AutomatedOrdered By: Haris Martino on 06-08-2023 Monocyte distribution width Auto (Bld) [Entitic vol] 18.39 % 0.00-20.00 [facility] Monocytes Auto (Bld) [#/Vol] Ordered By: Haris Martino on 06-08-2023 Monocytes (Bld) [#/Vol] 0.5 10*3/uL 0.0-0.8 [facility] Monocytes/100 WBC Auto (Bld) Ordered By: Haris Martino on 06-08-2023 Monocytes/100 WBC (Bld) 6.6 % . [facility] Natriuretic peptide B [Mass/ Vol]Ordered By: Haris Martino on 06-08-2023 Natriuretic peptide B (Bld) [Mass/Vol] 9.0 pg/mL 5-100 [facility] Neutrophils Auto (Bld) [#/Vo l]Ordered By: Haris Martino on 06-08-2023 Neutrophils (Bld) [#/Vol] 4.6 10*3/uL 1.8-7.7 [facility] Neutrophils/100 WBC Auto (Bl d)Ordered By: Haris Martino on 06-08-2023 Neutrophils/100 WBC (Bld) 55.6 % . [facility] Nitrite Test strip Ql (U)Ord ered By: Haris Martino on 06-08-2023 Nitrite Ql (U) Negative Negative [facility] No Panel InformationOrdered By: Haris Martino on 06-08-2023 Estimated GFR (CKD-EPI) > 60.0 mL/Min [facility] Creatinine Clearance (Chem 155.50 [facility] Nucleated erythrocytes [Pres ence] in Blood by Automated countOrdered By: Haris Martino on 06-08-2023 Nucleated RBC Auto Ql (Bld) 0.1 /100{WBC} 0-0.5 [facility] Platelet mean volume Auto (B ld) [Entitic vol]Ordered By: Haris Martino on 06-08-2023 Platelet mean volume (Bld) [Entitic vol] 8.2 fL 6.3-10.7 [facility] Platelets Auto (Bld) [#/Vol] Ordered By: Haris Martino on 06-08-2023 Platelets (Bld) [#/Vol] 225 10*3/uL 150-450 [facility] Potassium [Moles/volume] in Serum or PlasmaOrdered By: Haris Martino on 06-08-2023 Potassium [Moles/Vol] 4.0 mmol/L 3.5-5.1 [facility] Protein Auto test strip (U) [Mass/Vol]Ordered By: Haris Martino on 06-08-2023 Protein (U) [Mass/Vol] Negative Negative [facility] Protein [Mass/volume] in Ser um or PlasmaOrdered By: Haris Martino on 06-08-2023 Protein [Mass/Vol] 7.5 g/dL 6.4-8.9 [facility] Prothrombin time (PT)Ordered By: Haris Martino on 06-08-2023 PT Coag (PPP) [Time] 12.2 s 9.0-12.9 [facility] Comment on above: A hematocrit value g reater than 55% may lead to inaccurate results in coagulation testing. Patients having hematocrit values >55% require a special collection tube for coagulation studies. Please contact the laboratory at [phone] for redraw instructions. RBC Auto (Bld) [#/Vol]Ordere d By: Haris Martino on 06-08-2023 RBC (Bld) [#/Vol] 4.94 10*6/uL 3.60-5.00 [facility] Serum or plasma albumin/glob ulin mass ratioOrdered By: Haris Martino on 06-08-2023 Albumin/Globulin [Mass ratio] 1.6 {ratio} [facility] Serum or plasma anion gap de terminationOrdered By: Haris Martino on 06-08-2023 Anion gap [Moles/Vol] 9.7 mmol/L 6.0-15.0 [facility] Serum or plasma non-glucuron idated bilirubin measurement (mass/volume)Ordered By: Haris Martino on 06-08-2023 Bilirubin.indirect [Mass/Vol] 0.3 mg/dL [facility] Sodium [Moles/volume] in Ser um or PlasmaOrdered By: Haris Martino on 06-08-2023 Sodium [Moles/Vol] 139 mmol/L 136-145 [facility] Specific gravity Auto test s trip (U) [Rel density]Ordered By: Haris Martino on 06-08-2023 Specific gravity (U) [Rel density] 1.015 1.001-1.03 0 [facility] Squamous epithelial cells de tection in urine sediment by light microscopyOrdered By: Haris Martino on 06-08-2023 Epithelial cells.squamous LM Ql (Urine sed) 3-4 [HPF] 0-2 [facility] Troponin I.cardiac [Mass/vol ume] in Serum or Plasma by Detection limit <= 0.01 ng/Ordered By: Haris Martino on 06-08-2023 Troponin I.cardiac DL <= 0.01 ng/mL [Mass/Vol] < 2.3 pg/mL 0.0-15.0 [facility] Urea nitrogen [Mass/volume] in Serum or PlasmaOrdered By: Haris Martino on 06-08-2023 Urea nitrogen [Mass/Vol] 10 mg/dL 7-25 [facility] Urine bacteria detection by automated methodOrdered By: Haris Martino on 06-08-2023 Bacteria Auto Ql (U) 1+ None Seen [facility] Urine clarity by refractomet ry automatedOrdered By: Haris Martino on 06-08-2023 Clarity Refractometry automated (U) Clear Clear [facility] Urine glucose measurement by automated test strip (mass/volume)Ordered By: Haris Martino on 06-08-2023 Glucose Auto test strip (U) [Mass/Vol] Normal mg/dL Normal [facility] Urine hemoglobin detection b y automated test stripOrdered By: Haris Martino on 06-08-2023 Hemoglobin Auto test strip Ql (U) Negative Negative [facility] Urine leukocyte esterase det ection by automated test stripOrdered By: Haris Martino on 06-08-2023 Leukocyte esterase Auto test strip Ql (U) 1+ Negative [facility] Urobilinogen Auto test strip (U) [Mass/Vol]Ordered By: Haris Martino on 06-08-2023 Urobilinogen (U) [Mass/Vol] Normal mg/dL Normal [facility] WBC Auto (Bld) [#/Vol]Ordere d By: Haris Martino on 06-08-2023 WBC (Bld) [#/Vol] 8.3 10*3/uL 3.8-11.6 [facility] pH Auto test strip (U)Ordere d By: Haris Martino on 06-08-2023 pH (U) 6.5 [pH] 5.0-9.0 [facility] Alanine aminotransferase [En zymatic activity/volume] in Serum or PlasmaOrdered By: Carlitos Nguyen on 04-25-2023 ALT [Catalytic activity/Vol] 18 U/L 7-52 [facility] Albumin [Mass/volume] in Ser um or Plasma by Bromocresol green (BCG) dye binding methoOrdered By: Carlitos Nguyen on 04-25-2023 Albumin BCG dye [Mass/Vol] 4.8 g/dL 3.5-5.7 [facility] Alkaline phosphatase [Enzyma tic activity/volume] in Serum or PlasmaOrdered By: Carlitos Nguyen on 04-25-2023 ALP [Catalytic activity/Vol] 73 U/L 34-104 [facility] Aspartate aminotransferase [ Enzymatic activity/volume] in Serum or PlasmaOrdered By: Carlitos Nguyen on 04-25-2023 AST [Catalytic activity/Vol] 18 U/L 13-39 [facility] Bilirubin.total [Mass/volume ] in Serum or PlasmaOrdered By: Carlitos Nguyen on 04-25-2023 Bilirubin [Mass/Vol] 0.5 mg/dL 0.3-1.0 [facility] Calcium [Mass/volume] in Ser um or PlasmaOrdered By: Carlitos Nguyen on 04-25-2023 Calcium [Mass/Vol] 9.9 mg/dL 8.6-10.3 [facility] Carbon dioxide, total [Moles /volume] in Serum or PlasmaOrdered By: Carlitos Nguyen on 04-25-2023 CO2 [Moles/Vol] 25.9 mmol/L 21.0-31.0 [facility] Chloride [Moles/volume] in S colin or PlasmaOrdered By: Carlitos Nguyen on 04-25-2023 Chloride [Moles/Vol] 105 mmol/L 98-107 [facility] Cholesterol [Mass/volume] in Serum or PlasmaOrdered By: Carlitos Nguyen on 04-25-2023 Cholesterol [Mass/Vol] 208 mg/dL 140-200 [facility] Comment on above: Chol less than 200 m g/dl low riskChol 201-239 mg/dl borderline riskChol 240 mg/dl and greater high risk Cholesterol in LDL Calc [Mas s/Vol]Ordered By: Carlitos Nguyen on 04-25-2023 Cholesterol in LDL [Mass/Vol] 136 mg/dL 0-100 [facility] Comment on above: LDL ATP III CLASSIFI CATIONLDL less than 100 mg/dL OptimalLDL 100-129 mg/dL Near or above optimalLDL 130-159 mg/dL Borderline highLDL 160-189 mg/dL HighLDL greater than 189 mg/dL Very high Cholesterol in VLDL Calc [Ma ss/Vol]Ordered By: Carlitos Nguyen on 04-25-2023 Cholesterol in VLDL [Mass/Vol] 16 mg/dL [facility] Creatinine [Mass/volume] in Serum or PlasmaOrdered By: Carlitos Nguyen on 04-25-2023 Creatinine [Mass/Vol] 0.81 mg/dL 0.60-1.20 [facility] Globulin Calc (S) [Mass/Vol] Ordered By: Carlitos Nguyen on 04-25-2023 Globulin (S) [Mass/Vol] 2.6 g/dL [facility] Glucose [Mass/volume] in Ser um or PlasmaOrdered By: Carlitos Nguyen on 04-25-2023 Glucose [Mass/Vol] 84 mg/dL 70-100 [facility] No Panel InformationOrdered By: Carlitos Nguyen on 04-25-2023 Estimated GFR (CKD-EPI) > 60.0 mL/Min [facility] Creatinine Clearance (Chem N/A [facility] Potassium [Moles/volume] in Serum or PlasmaOrdered By: Carlitos Nguyen on 04-25-2023 Potassium [Moles/Vol] 4.3 mmol/L 3.5-5.1 [facility] Comment on above: Hemolysis is present at a level that could interfere with the result. Protein [Mass/volume] in Ser um or PlasmaOrdered By: Carlitos Nguyen on 04-25-2023 Protein [Mass/Vol] 7.4 g/dL 6.4-8.9 [facility] Serum or plasma albumin/glob ulin mass ratioOrdered By: Carlitos Nguyen on 04-25-2023 Albumin/Globulin [Mass ratio] 1.8 {ratio} [facility] Serum or plasma anion gap de terminationOrdered By: Carlitos Nguyen on 04-25-2023 Anion gap [Moles/Vol] 12.4 mmol/L 6.0-15.0 [facility] Serum or plasma high density lipoprotein (HDL) cholesterol measurementOrdered By: Carlitos Nguyen on 04-25-2023 Cholesterol in HDL [Mass/Vol] 55 mg/dL 23- [facility] Comment on above: HDL CHOL ATP-III CLA SSIFICATION Cardiovascular RiskHDL > or equal to 60 mg/dL LOWHDL < 40 mg/dL HIGH Serum or plasma total choles terol/high density lipoprotein (HDL) cholesterol mass ratOrdered By: Carlitos Nguyen on 04-25-2023 Cholesterol.total/Chol esterol in HDL [Mass ratio] 3.8 {ratio} <5.0 [facility] Sodium [Moles/volume] in Ser um or PlasmaOrdered By: Carlitos Nguyen on 04-25-2023 Sodium [Moles/Vol] 139 mmol/L 136-145 [facility] Triglyceride [Mass/volume] i n Serum or PlasmaOrdered By: Carlitos Nguyen on 04-25-2023 Triglyceride [Mass/Vol] 83 mg/dL 0-149 [facility] Comment on above: TRIG ATP III CLASSIF ICATIONTRIG less than 150 mg/dL NormalTRIG 150-199 mg/dL Borderline highTRIG 200-500 mg/dL High TRIG greater than 500 mg/dL Very highStandard traceable to the Center for Disease Conrtrol and Prevention (CDC) test method. Urea nitrogen [Mass/volume] in Serum or PlasmaOrdered By: Carlitos Nguyen on 04-25-2023 Urea nitrogen [Mass/Vol] 15 mg/dL 7-25 [facility] Tobacco Screening.on 023 Adult depression screening assessment No [facility] 320 DO Work Phone: Fall risk assessment a) No falls within the last year [facility] DO Work Phone: Tobacco use status CP b) No [facility] [address] DO Work Phone: Office Visit (Cardiology)on [...] in adult Healthy Weight Tips; Status:Complete; Done: [id number] SocHx: Never a smoker Tobacco Use Screening; Status:Complete; Done: [id number] Patient Instructions Please bring all medicines, vitamins, [...] she did get a second opinion in [place], and no change in medication was suggested [...] sinus sometime (more content not included)... Normal [employer] Tobacco Screening.on 022 Tobacco use status CPH[facility] b) No [facility] 250 DO Work Phone: Cardiovasc Arrhythmia Result son 07-31-2022 Cardiovasc Arrhythmia Results Reason For Visit MADYSON is here for the application of a [employer] monitor. Ordering Physician: Dr. Maza Diagnosis: abn TTT, dyspnea, syncope, autonomic orthostatic hypotension [facility] equipment agreement signed. MADYSON understands monitor is to be returned on: 08/14/22 Monitor number [id number] applied. Procedure Date I received for dictation [...] Appointments Date/TimeProviderSpecialt ySite 09/11/2022 09:30 Melodie Sylvester [id number] [place] 250 DO 10/13/2022 09:20 Annalee Russell [id number] [place] 320 DO Signatures [...] a week.; Status:Complete - Retrospective Authorization; Done: [id number] Diets that are low in carbohydrates and high in protein are very popular for weight loss.; Status:Complete - Retrospective Authorization; Done: [id number] Eat a low fat and low cholesterol diet.; Status:Complete - Retrospective Authorization; Done: [id number] Please bring all medicines, vitamins, and herbal supplements with you when you come to the office.; Status:Complete - Retrospective Authorization; Done: [id number] SocHx: Never a smoker Tobacco Use Screening; Status:Complete; Done: [id number] Patient Instructions Drink plenty of water daily, [...] with Dr. Chan Jiang in 1 week. I, Tammy Lujan, [employer], am scribing for and in the presence [...] heart murmur and has been transferred to [facility] There is no family history [...] cardiac data (more content not included)... Normal [email or web address] Tobacco Screening.on 022 Fall risk assessment b) One or more fall s in the last year [facility] OutTrippin DO Work Phone: Tobacco use status [facility] b) No [facility] Out[employer]in DO Work Phone: Office Visit (Cardiology)on 07-10-2022 [...] Confirmed - N/A AMA Intake updated by [facility] ([facility]) on 2022-07-11 22:02 New Recipient: Annalee Maza [place] Appointment Date: 2022-07-21 07:20 Autonomic orthostatic hypotension, Syncope, unspecified syncope type Changed: From To Midodrine HCl - 10 MG Oral Tablet TAKE 1 TABLET 3 TIMES DAILY Class 1 obesity with body mass index (BMI) of 31.0 to 31.9 in adult Avoid getting up or changing positions quickly.; Status:Complete; Done: 10Jul2022 Healthy Weight Tips; Status:Complete; Done: [id number] Some eating tips that can help you lose weight.; Status:Complete; Done: 52Vll8466 Dyspnea (786.09) (R06.00) Class 1 obesity with [...] from 6 (more content not included)... Normal [employer] Tobacco Screening.on 022 Tobacco use status HS b) No [facility] 250 DO Work Phone: COVID CepheidOrdered By: Daniele Pearce on 06-01-2022 SARS-CoV-2 (COVID-19) Ab IA Ql Negative Negative [facility] Comment on above: This is a duplicate [employer] Xpert Xpress CoV-2/Flu/RSV Plus RNA by RT-PCR result to be used for statistical tracking purpose only. SARS-CoV-2 (COVID-19) RNA PERFECTO+probe Ql (Unsp spec) [facility] Office Visit (Cardiology)on 05-18-2022 [...] in adult Healthy Weight Tips; Status:Complete; Done: 79Fpi0139 Some eating tips that can help you lose weight.; Status:Complete; Done: 47Uqj6283 Dyspnea, Syncope, unspecified syncope type Urine Test; Status:Active - Retrospective By Protocol Authorization; Requested for:[id number]; Palpitation Start: Atenolol 25 MG Oral Tablet; TAKE 1 TABLET DAILY Syncope, unspecified syncope type Tilt Table; Status:Hold For - Scheduling,Retrospective By Protocol Authorization; Requested for:[id number]; Patient Instructions Please bring all medicines, vitamins, [...] walking to the bathroom. She will see pricer in the near future, she had her pulmonary function test which I reviewed, there is concern for chronic asthma, but no reactive airway disease. She has 3 dogs that she had, and 1 cat at home. She is not orthostatic. She is feeling palpitations quite a bit. Results of the pulmonary function test and a [employer]ah [employer] was reviewed. Also reviewed stress test and [...] 3.5 c (more content not included)... Normal [email or web address] Tobacco Screening.on 022 Tobacco use status CPHS b) No [facility] DO Work Phone: No Panel Informationon 05-03 [facility] 250 DO Work Phone: [facility] 250 DO Work Phone: Cardiovasc Arrhythmia Result son 03-28-2022 Cardiovasc Arrhythmia Results Reason For Visit Event Monitor: MADYSON is here for the application of a 30 day event monitor in office., Diagnosis: Palps, Dyspnea, Chest pain Ordering Physician: Enrollment sent to: [employer] Monitor number [id number] applied. Holter monitor printed and placed on [...] Palpitation (785.1) (R00.2) Future Appointments Date/TimeProviderSpecialt [facility] 05/03/2022 10:00 María Elena Cesar MDCardiologySurgery [facility] 05/18/2022 09:15 eMlodie Sylvester MDCardiology703 [facility] [address] [place] 250 DO Signatures Electronically signed by : Melodie Alcaraz MD; May 01 2022 7:56PM EST (Author) Normal [facility] - Chemistry and C hemistry - challengeOrdered By: Melodie Alcaraz on 03-24-2022 Natriuretic peptide B (Bld) [Mass/Vol] 27.0 pg/mL 5-100 [facility] No Panel InformationOrdered By: Melodie Alcaraz on 03-24-2022 D-Dimer Quantitative (PE/DVT) < 200 ng/mL 0-243 [facility] Comment on above: The [...] No Panel Informationon 03-24 0.70\S\0.70 Normal 0.45-5.33 [facility] [address] 250 DO Work Phone: Comment on above: PERFORMED BY:[facility] [place], [place] [phone] MEDICAL DIRECTOROFE ELLIS M.D. 0.99\S\0.99 Normal 0.61-1.12 [facility] Work Phone: 27.0\S\27.0 Normal 5-100 [facility] Work Phone: Comment on above: PERFORMED BY:[facility] [place] [phone] MEDICAL DIRECTOROFE ELLIS M.D. < 200 Normal 0-243 [facility] Work Phone: Comment on [...] in hospitalized patients due to co-morbid conditions.PERFORMED BY:[facility] [place], [place] [phone] MEDICAL DIRECTOROFE ELLIS M.D. TSH DL <= 0.005 mIU/L QnOrde red By: Melodie Alcaraz on 03-24-2022 TSH Qn 0.70 m[IU]/L 0.45-5.33 [facility] Thyroxine (T4) free [Mass/vo lume] in Serum or PlasmaOrdered By: Melodie Alcaraz on 03-24-2022 Free T4 [Mass/Vol] 0.99 ng/dL 0.61-1.12 [facility] Office Visit (Cardiology)on 03-23-2022 Follow-up visit Diagnoses/Problems [...] twin brother had to be taken to [facility], and has history of heart murmur. Patient [...] frequently pic (more content not included)... Normal [facility] PHQ-2 VITALSon 03-23-2022 Adult depression screening assessment No [facility] [address] DO Work Phone: Fall risk assessment c) Not medically indicated [facility] DO Work Phone: Tobacco use status CPHS b) No [facility] DO Work Phone: ARMANI BY IFA WITH REFLEXon Nuclear Ab IF (S) [Titer] Negative Negative [facility]CP ANTIBODY IGGon 2 Cyclic citrullinated peptide IgG Qn <15 <20 Units [facility] Cyclic citrullinated peptide IgG Qnon 01-26-2022 CCP Antibody IgG Qualitative Negative Negative [facility] Nuclear Ab IA Ql (S)on 01-26 ARMANI by EIA, Qual Negative Negative [facility] ARMANI BY IFA WITH REFLEXon Nuclear Ab IF (S) [Titer] Negative Normal Negative [facility] Comment on above: Order Comment: Jose Carlos oseguera Type: BLOOD SPECIMEN Ordering Facility: [facility] Address: [address] [place], [place] [address] Result Comment: Anti -nuclear antibody test is used as an aid in diagnosis of systemic autoimmune diseases. Where positive and clinically warranted, follow-up using disease-specific testing is recommended. Low positive titers are not uncommon with advanced age, certain chronic infections, and malignancies among others. Test methodology: Indirect fluorescence immunoassay (IFA) using HEp-2 cells. Performed By: #### A NAIFR #### [facility] CLIA [id number] [address] [place] [address] [place] C-REACTIVE PROTEIN (CRP)on 0 01-25-2022 CRP [Mass/Vol] 0.4 mg/dL <0.9 mg/dL [facility] C1 ESTERASE INHIBITon 2021 C1 ESTERASE INHIBIT 26 mg/dL Normal 21-38 [facility] Comment on above: Order Comment: Jose Carlos oseguera Type: BLOOD SPECIMEN Ordering Facility: [facility] Address: [address] [place] [address] Result Comment: Perf ormed By: [facility] [address] [place] [phone] Tax Technician: Brittni Moscoso MD Performed By: #### 1 6570-4, 43470-4, 02617-3, 87982-4, 11199-5, 21699-7, 69583-3, 15791-2 #### [facility] CLIA [id number] [address] [place] [address] [place] C2 COMPLEMENT BLDon 01-26-20 22 C2 COMPLEMENT 2.4 mg/dL Normal 1.6-4.0 [facility] Comment on above: Order Comment: Jose Carlos oseguera Type: BLOOD SPECIMEN Ordering Facility: [facility] Address: [address] [place] [address] Result Comment: INTE RPRETIVE INFORMATION: Complement Component 2 Decreased C2 levels may be associated with increased susceptibility to infection (especially pneumococcal infections), systemic lupus erythematosus-like disease, rashes, arthritis and nephritis, and with C1-Esterase deficiency. Increased C2 levels are associated with the acute phase response. This test was developed and its performance characteristics determined by [facility]. It has not been cleared or approved by the [place] Food and Drug Administration. This test was performed in a CLIA certified laboratory and is intended for clinical purposes. Performed By: [facility] [address] [place] [id number] Tax Technician: Brittni Moscoso MD Performed By: #### 1 6570-4, 46834-2, 05156-6, 33864-0, 01048-6, 61326-4, 56833-2, 83271-1 #### [facility] CLIA [id number] [address] [place] [address] [place] C3 COMPLEMENT BLDon 01-26-20 22 Complement C3 [Mass/Vol] 130 mg/dL 86 - 166 mg/dL [facility] C3 SerPl-mCncon 01-25-2022 Complement C3 [Mass/Vol] 130 mg/dL Normal 86-166 [facility] Comment on above: Order Comment: Speci men Type: BLOOD SPECIMEN Ordering Facility: [facility] Address: [address] [place] [address] Performed By: #### 1 6570-4, 27320-3, 58951-2, 02090-1, 52845-6, 47594-4, 19037-7, 38884-3 #### [facility] CLIA [id number] [address] [place] [address] [place] C4 COMPLEMENT BLDon 01-26-20 22 Complement C4 [Mass/Vol] 30 mg/dL 13 - 46 mg/dL [facility] C4 SerPl-mCncon 01-25-2022 Complement C4 [Mass/Vol] 30 mg/dL Normal 13-46 [facility] Comment on above: Order Comment: Speci men Type: BLOOD SPECIMEN Ordering Facility: [facility] Address: [address] [place] [address] Performed By: #### 1 6570-4, 61207-4, 27363-0, 99982-6, 73869-8, 85079-7, 31995-6, 28976-0 #### [facility] CLIA [id number] [address] [place] [address] [place] CBC panel Auto (Bld)on 01-25 Erythrocyte distribution width (RBC) [Ratio] 12.1 % Normal 11.5-15.0 [facility] Comment on above: Order Comment: Speci men Type: BLOOD SPECIMEN Ordering Facility: [facility] Address: [address] [place] [address] Performed By: #### 1 6570-4, 54888-6, 12492-0, 73030-7, 48203-3, 22005-0, 66683-0, 49482-9 #### [facility] CLIA [id number] [address] [place] [address] [place] Hematocrit (Bld) [Volume fraction] 42.6 % Normal 36.0-46.0 [facility] Comment on above: Order Comment: Speci men Type: BLOOD SPECIMEN Ordering Facility: [facility] Address: [address] [place] [address] Performed By: #### 1 6570-4, 35240-5, 51730-2, 29090-8, 04988-9, 20907-0, 26297-5, 59946-9 #### [facility] CLIA [id number] [address] [place] [address] [place] Hemoglobin (Bld) [Mass/Vol] 13.8 g/dL Normal 11.5-15.5 [facility] Comment on above: Order Comment: Speci men Type: BLOOD SPECIMEN Ordering Facility: [facility] Address: [address] [place] [address] Performed By: #### 1 6570-4, 36789-5, 27648-3, 41792-2, 61816-8, 03551-7, 03399-6, 13654-1 #### [facility] CLIA [id number] [address] [place] [address] [place] MCH (RBC) [Entitic mass] 28.3 pg Normal 26.0-34.0 [facility] Comment on above: Order Comment: Speci men Type: BLOOD SPECIMEN Ordering Facility: [facility] Address: [address] [place] [address] Performed By: #### 1 6570-4, 47777-7, 18796-4, 79289-6, 68285-7, 39007-6, 93075-9, 87373-2 #### [facility] CLIA [id number] [address] [place] [address] [place] MCHC (RBC) [Mass/Vol] 32.4 g/dL Normal 30.5-36.0 [facility] Comment on above: Order Comment: Speci men Type: BLOOD SPECIMEN Ordering Facility: [facility] Address: [address] [place] [address] Performed By: #### 1 6570-4, 09725-1, 95011-3, 35708-2, 91031-7, 31804-6, 55582-3, 00183-6 #### [facility] CLIA [id number] [address] [place] [address] [place] MCV (RBC) [Entitic vol] 87.3 fL Normal 80.0-100.0 [facility] Comment on above: Order Comment: Speci men Type: BLOOD SPECIMEN Ordering Facility: [facility] Address: [address] [place], [place] [address] Performed By: #### 1 6570-4, 23071-9, 61488-2, 98714-6, 47959-6, 59673-3, 12817-7, 55790-5 #### [facility] CLIA [id number] [address] [place] [address] [place] Nucleated RBC (Bld) [#/Vol] 10*3/uL Normal <0.01 [facility] Comment on above: Order Comment: Speci men Type: BLOOD SPECIMEN Ordering Facility: [facility] Address: [address] [place] [address] Performed By: #### 1 6570-4, 24105-9, 03412-4, 87700-1, 12601-3, 39512-4, 68635-6, 61758-6 #### [facility] CLIA [id number] [address] [place] [address] [place] Platelet mean volume (Bld) [Entitic vol] 10.3 fL Normal 9.0-12.7 [facility] Comment on above: Order Comment: Speci men Type: BLOOD SPECIMEN Ordering Facility: [facility] Address: [address] [place] [address] Performed By: #### 1 6570-4, 10807-3, 87655-5, 49157-4, 69297-7, 36128-6, 17289-4, 44642-0 #### [facility] CLIA [id number] [address] [place] [address] [place] Platelets (Bld) [#/Vol] 213 10*3/uL Normal 150-400 [facility] Comment on above: Order Comment: Speci men Type: BLOOD SPECIMEN Ordering Facility: [facility] Address: [address] [place] [address] Performed By: #### 1 6570-4, 82554-2, 16993-2, 99121-4, 02901-7, 58321-3, 65229-4, 96828-1 #### [facility] CLIA [id number] [address] [place] [address] [place] RBC (Bld) [#/Vol] 4.88 10*6/uL Normal 3.90-5.20 [facility] Comment on above: Order Comment: Speci men Type: BLOOD SPECIMEN Ordering Facility: [facility] Address: [address] [place] [address] Performed By: #### 1 6570-4, 54216-3, 05447-5, 63236-0, 76522-2, 63797-9, 94662-1, 77184-6 #### [facility] CLIA [id number] [address] [place] [address] [place] WBC (Bld) [#/Vol] 4.77 10*3/uL Normal 3.70-11.00 [facility] Comment on above: Order Comment: Speci men Type: BLOOD SPECIMEN Ordering Facility: [facility] Address: [address] [place] [address] Performed By: #### 1 6570-4, 64031-9, 64209-4, 91917-7, 67260-1, 44948-1, 58558-5, 53434-4 #### [facility] CLIA [id number] [address] [place] [address] [place] Erythrocyte distribution width (RBC) [Ratio] 12.1 % 11.5 - 15.0 % [facility] Hematocrit (Bld) [Volume fraction] 42.6 % 36.0 - 46.0 % [facility] Hemoglobin (Bld) [Mass/Vol] 13.8 g/dL 11.5 - 15.5 g/dL [facility] MCH (RBC) [Entitic mass] 28.3 pg 26.0 - 34.[address] [facility] MCHC (RBC) [Mass/Vol] 32.4 g/dL 30.5 - 36.0 g/dL [facility] MCV (RBC) [Entitic vol] 87.3 fL 80.0 - 100.[address] [facility] Nucleated RBC (Bld) [#/Vol] 10*3/uL <0.01 k/uL [facility] Platelet mean volume (Bld) [Entitic vol] 10.3 fL 9.0 - 12.[address] [facility] Platelets (Bld) [#/Vol] 213 10*3/uL 150 - 400 k/uL [facility] RBC (Bld) [#/Vol] 4.88 10*6/uL 3.90 - 5.20 m/uL [facility] WBC (Bld) [#/Vol] 4.77 10*3/uL 3.70 - 11.00 k/uL [facility] CRP SerPl-mCncon 01-25-2022 CRP [Mass/Vol] 0.4 mg/dL Normal <0.9 [facility] Comment on above: Order Comment: Jose Carlos oseguera Type: BLOOD SPECIMEN Ordering Facility: [facility] Address: [address] [place] [address] Performed By: #### 1 6570-4, 79166-5, 70511-1, 99137-0, 21625-0, 19226-2, 66107-4, 60449-6 #### [facility] CLIA [id number] [address] [place] [address] [facility] Centromere Ab IF Ql (S)on Centromere Ab Qn (S) <0.2 Normal <1.0 [facility] Comment on above: Order Comment: Jose Carlos oseguera Type: BLOOD SPECIMEN Ordering Facility: [facility] Address: [address] [place] [address] Result Comment: Anti -centromere antibody is used as in aid in diagnosis of systemic sclerosis. Clinical correlation is required. Test Methodology: Multiplex flow immunoassay. Performed By: #### 1 6570-4, 64334-7, 54358-1, 99749-2, 10216-9, 84972-9, 52859-5, 50276-4 #### [facility] CLIA [id number] [address] [place] [address] [place] CENTROMERE AB QUAL Negative Normal Negative [facility] Comment on above: Order Comment: Jose Carlos oseguera Type: BLOOD SPECIMEN Ordering Facility: [facility] Address: [address] [place] [address] Performed By: #### 1 6570-4, 82415-1, 82502-3, 20662-1, 67362-7, 57747-0, 60818-5, 00179-2 #### [facility] CLIA [id number] [address] [place] Chromatin Ab Qnon 01-25-2022 CHROMATIN AB QUAL Negative Normal Negative [facility] Comment on above: Order Comment: Speci men Type: BLOOD SPECIMEN Ordering Facility: [facility] Address: [address] [place] [address] Performed By: #### 1 6570-4, 53970-3, 15498-5, 63298-1, 30434-6, 62128-4, 88448-0, 36906-2 #### [facility] CLIA [id number] [address] [place] [address] [place] Chromatin Ab SerPl-aCncon Chromatin Ab Qn <0.2 Normal <1.0 [facility] Comment on above: Order Comment: Speci men Type: BLOOD SPECIMEN Ordering Facility: [facility] Address: [address] [place] [address] Result Comment: Test Methodology: Multiplex flow immunoassay. Performed By: #### 1 6570-4, 44562-9, 27613-0, 54198-1, 26248-7, 02164-0, 07556-9, 42654-2 #### [facility] CLIA [id number] [address] [place] [address] [place] Comprehensive metabolic 2000 panelon 01-25-2022 Albumin [Mass/Vol] 4.5 g/dL 3.9 - 4.9 g/dL [facility] ALP [Catalytic activity/Vol] 65 U/L 34 - 123 U/L [facility] ALT [Catalytic activity/Vol] 14 U/L 7 - 38 U/L [facility] Anion gap [Moles/Vol] 11 mmol/L 9 - 18 mmol/L [facility] AST [Catalytic activity/Vol] 14 U/L 13 - 35 U/L [facility] Bilirubin [Mass/Vol] 0.3 mg/dL 0.2 - 1 .3 mg/dL [facility] Calcium [Mass/Vol] 9.5 mg/dL 8.5 - 10. 2 mg/dL [facility] Chloride [Moles/Vol] 105 mmol/L 97 - 10 5 mmol/L [facility] CO2 [Moles/Vol] 26 mmol/L 22 - 30 mmol/L [facility] Creatinine [Mass/Vol] 0.71 mg/dL 0.58 - 0.96 mg/dL [facility] Estimated Glomerular Filtration Rate 125 mL/min/1.73m >=60 mL/min/1.[address] [facility] Glucose [Mass/Vol] 94 mg/dL 74 - 99 mg/dL [facility] Potassium [Moles/Vol] 4.6 mmol/L 3.7 - 5.1 mmol/L [facility] Protein [Mass/Vol] 7.2 g/dL 6.3 - 8.0 g/dL [facility] Sodium [Moles/Vol] 142 mmol/L 136 - 144 mmol/L [facility] Urea nitrogen [Mass/Vol] 8 mg/dL 7 - 21 mg/dL [facility] Albumin [Mass/Vol] 4.5 g/dL Normal 3.9-4.9 [facility] Comment on above: Order Comment: Speci ana rosa Type: BLOOD SPECIMEN Ordering Facility: [facility] Address: [address] [place] [address] Performed By: #### 1 6570-4, 92654-8, 48230-6, 30577-8, 40778-5, 14833-0, 60023-7, 58378-8 #### [facility] CLIA [id number] [address] [place] [address] [place] ALP [Catalytic activity/Vol] 65 U/L Normal 34-123 [facility] Comment on above: Order Comment: Horacioi men Type: BLOOD SPECIMEN Ordering Facility: [facility] Address: [address] [place] [address] Performed By: #### 1 6570-4, 26421-5, 43525-5, 48973-7, 78370-3, 49200-1, 17420-7, 86497-5 #### [facility] CLIA [id number] [address] [place] [address] [place] ALT [Catalytic activity/Vol] 14 U/L Normal 7-38 [facility] Comment on above: Order Comment: Speci men Type: BLOOD SPECIMEN Ordering Facility: [facility] Address: [address] [place] [address] Performed By: #### 1 6570-4, 43723-3, 98622-1, 11398-1, 42818-9, 07209-6, 31978-0, 84723-7 #### [facility] CLIA [id number] [address] [place] [address] [place] Anion gap [Moles/Vol] 11 mmol/L Normal 9-18 [facility] Comment on above: Order Comment: Speci men Type: BLOOD SPECIMEN Ordering Facility: [facility] Address: [address] [place] [address] Performed By: #### 1 6570-4, 34602-0, 78866-4, 88941-3, 91379-6, 75389-3, 18610-6, 73477-5 #### [facility] CLIA [id number] [address] [place] [address] [place] AST [Catalytic activity/Vol] 14 U/L Normal 13-35 [facility] Comment on above: Order Comment: Speci men Type: BLOOD SPECIMEN Ordering Facility: [facility] Address: [address] [place] [address] Performed By: #### 1 6570-4, 71933-4, 71755-4, 75605-1, 16533-8, 91393-3, 80529-2, 13082-1 #### [facility] CLIA [id number] [address] [place] [address] [place] Bilirubin [Mass/Vol] 0.3 mg/dL Normal 0.2-1.3 [facility] Comment on above: Order Comment: Speci men Type: BLOOD SPECIMEN Ordering Facility: [facility] Address: [address] [place] [address] Performed By: #### 1 6570-4, 68042-3, 29043-4, 84154-3, 01960-7, 70769-1, 44007-4, 82853-6 #### [facility] CLIA [id number] [address] [place] [address] [place] Calcium [Mass/Vol] 9.5 mg/dL Normal 8.5-10.2 [facility] Comment on above: Order Comment: Speci men Type: BLOOD SPECIMEN Ordering Facility: [facility] Address: [address] [place] [address] Performed By: #### 1 6570-4, 76580-4, 95997-8, 59099-1, 07272-5, 48609-0, 71337-2, 12243-0 #### [facility] CLIA [id number] [address] [place] [address] [place] Chloride [Moles/Vol] 105 mmol/L Normal 97-105 [facility] Comment on above: Order Comment: Speci men Type: BLOOD SPECIMEN Ordering Facility: [facility] Address: [address] [place] [address] Performed By: #### 1 6570-4, 16766-1, 89055-0, 82965-6, 44435-0, 83186-4, 42425-8, 74542-3 #### [facility] CLIA [id number] [address] [place] [address] [place] CO2 [Moles/Vol] 26 mmol/L Normal 22-30 [facility] Comment on above: Order Comment: Speci men Type: BLOOD SPECIMEN Ordering Facility: [facility] Address: [address] [place] [address] Performed By: #### 1 6570-4, 73138-2, 69372-6, 12007-7, 02636-0, 91374-4, 63344-9, 16510-0 #### [facility] CLIA [id number] [address] [place] [address] [place] Creatinine [Mass/Vol] 0.71 mg/dL Normal 0.58-0.96 [facility] Comment on above: Order Comment: Jose Carlos oseguera Type: BLOOD SPECIMEN Ordering Facility: [facility] Address: [address] [place], [place] [address] Performed By: #### 1 6570-4, 09000-5, 02556-4, 17289-1, 92660-7, 71381-1, 09805-8, 10887-8 #### [facility] CLIA [id number] [address] [place] [address] [place] ESTIMATED GLOMERULAR FILTRATION RATE 125 mL/min/1.73m??? Normal >=60 [facility] on above: Order Comment: Jose Carlos oseguera Type: BLOOD SPECIMEN Ordering Facility: [facility] Address: [address] [place] [address] Result Comment: Francesca mated Glomerular Filtration Rate [...] actual GFR. Performed By: #### 1 6570-4, 19241-9, 43627-8, 45205-3, 40124-3, 47968-4, 05273-0, 84658-5 #### [facility] CLIA [id number] [address] [place] [address] [place] Glucose [Mass/Vol] 94 mg/dL Normal 74-99 [facility] Comment on above: Order Comment: Jose Carlos oseguera Type: BLOOD SPECIMEN Ordering Facility: [facility] Address: [address] [place] [address] Result Comment: The [place] Diabetes Association (ADA) provides guidance for cutoff [...] Standards of Medical Care in Diabetes 2016, [place] [employer]. Diabetes Care. 2016.39(Suppl 1). Performed By: #### 1 6570-4, 96805-6, 86653-2, 96059-9, 11604-2, 66161-4, 71550-0, 20858-4 #### [facility] CLIA [id number] [address] [place] [address] [place] Potassium [Moles/Vol] 4.6 mmol/L Normal 3.7-5.1 [facility] Comment on above: Order Comment: Speci men Type: BLOOD SPECIMEN Ordering Facility: [facility] Address: [address] [place] [address] Performed By: #### 1 6570-4, 91627-2, 76832-8, 01727-7, 77745-3, 78869-2, 40855-1, 84928-3 #### [facility] CLIA [id number] [address] [place] [address] [place] Protein [Mass/Vol] 7.2 g/dL Normal 6.3-8.0 [facility] Comment on above: Order Comment: Speci men Type: BLOOD SPECIMEN Ordering Facility: [facility] Address: [address] [place] [address] Performed By: #### 1 6570-4, 91096-7, 61587-8, 63202-1, 66439-0, 18072-0, 28339-5, 29881-5 #### [facility] CLIA [id number] [address] [place] [address] [place] Sodium [Moles/Vol] 142 mmol/L Normal 136-144 [facility] Comment on above: Order Comment: Speci men Type: BLOOD SPECIMEN Ordering Facility: [facility] Address: [address] [place] [address] Performed By: #### 1 6570-4, 14226-7, 38027-8, 92118-2, 55737-5, 70145-7, 20055-7, 20460-5 #### [facility] CLIA [id number] [address] [place] [address] [place] Urea nitrogen [Mass/Vol] 8 mg/dL Normal 7-21 [facility] Comment on above: Order Comment: Speci men Type: BLOOD SPECIMEN Ordering Facility: [facility] Address: [address] [place] [address] Performed By: #### 1 6570-4, 69327-9, 31046-4, 36615-5, 63774-8, 21335-0, 50887-1, 78746-1 #### [facility] CLIA [id number] [address] [place] [address] [place] Cyclic citrullinated peptide IgG Qnon 01-25-2022 [facility] ANTIBODY IGG QUALITATIVE Negative Normal Negative [facility] Comment on above: Order Comment: Speci men Type: BLOOD SPECIMEN Ordering Facility: [facility] Address: [address] [place] [address] Performed By: #### 1 6570-4, 05766-6, 45427-6, 38843-6, 36091-5, 37034-8, 37377-3, 42320-2 #### [facility] CLIA [id number] [address] [place] [address] [place] JASON Jo1 Ab Ser-aCncon 2021 Yuly-1 extractable nuclear Ab Qn (S) <0.2 Normal <1.0 [facility] Comment on above: Order Comment: Speci men Type: BLOOD SPECIMEN Ordering Facility: [facility] Address: [address] [place] [address] Performed By: #### 1 6570-4, 17259-0, 59094-8, 42128-6, 06425-8, 72782-7, 40195-0, 10023-0 #### [facility] CLIA [id number] [address] [place] [address] JASON PROCESS PROJECT ENGINEER Ab Ser-aCncon 2021 Ribonucleoprotein extractable nuclear Ab Qn (S) <0.2 Normal <1.0 [facility] Comment on above: Order Comment: Speci men Type: BLOOD SPECIMEN Ordering Facility: [facility] Address: [address] [place] [address] Performed By: #### 1 6570-4, 52084-1, 91515-8, 91167-7, 51029-9, 27165-6, 13497-0, 45378-1 #### [facility] CLIA [id number] [address] [place] [address] [place] SM IgG Ser-aCncon 2021 Cota extractable nuclear IgG Qn (S) <0.2 Normal <1.0 [facility] Comment on above: Order Comment: Speci men Type: BLOOD SPECIMEN Ordering Facility: [facility] Address: [address] [place] [address] Performed By: #### 1 6570-4, 42892-7, 61294-7, 83439-7, 29471-5, 22169-7, 16221-3, 34768-2 #### [facility] CLIA [id number] [address] [place] [address] [place] SS-A Ab Ser-aCncon 01-25 Sjogrens syndrome-A extractable nuclear Ab Qn (S) <0.2 Normal <1.0 [facility] Comment on above: Order Comment: Speci men Type: BLOOD SPECIMEN Ordering Facility: [facility] Address: [address] [place] [address] Result Comment: Test Methodology: Multiplex flow immunoassay. Performed By: #### 1 6570-4, 00303-7, 66176-1, 60584-0, 46202-7, 39187-8, 11095-8, 22739-5 #### [facility] CLIA [id number] [address] [place] [address] [place] SS-B Ab Ser-aCncon 01-25 Sjogrens syndrome-B extractable nuclear Ab Qn (S) <0.2 Normal <1.0 [facility] Comment on above: Order Comment: Speci men Type: BLOOD SPECIMEN Ordering Facility: [facility] Address: [address] [place] [address] Result Comment: Anti -SSB (anti-La) antibody is used as an aid in diagnosis of a variety of systemic autoimmune diseases, especially for Sjogren's syndrome and systemic lupus erythematosus. Clinical correlation is required. Test Methodology: Multiplex flow immunoassay. Performed By: #### 1 6570-4, 35442-9, 52317-8, 04957-8, 37554-7, 37087-7, 62726-1, 45405-5 #### [facility] IA [id number] [address] [place] [address] [place] ESR Westergren method (Bld) [Velocity]on 01-25-2022 ESR (Bld) [Velocity] 2 mm/h 0 - 20 mm/hr [facility] ESR (Bld) [Velocity] 2 mm/h Normal 0-20 [facility] Comment on above: Order Comment: Speci men Type: BLOOD SPECIMEN Ordering Facility: [facility] Address: [address] [place] [address] Performed By: #### 1 6570-4, 35507-9, 77606-6, 26569-3, 30207-2, 71414-7, 39818-8, 31130-5 #### [facility] CLIA [id number] [address] [place] [address] [place] HBV core Ab Ser Qlon 022 HBV core Ab Ql (S) Negative Normal Negative [facility] Comment on above: Order Comment: Speci men Type: BLOOD SPECIMEN Ordering Facility: [facility] Address: [address] [place] [address] Result Comment: No e vidence of current or past infection with Hepatitis B virus. Should recent infection be suspected, repeat testing may be considered 3-4 weeks after this draw. Performed By: #### 1 6570-4, 39021-3, 86034-0, 88334-5, 41401-1, 35480-7, 37021-7, 84953-6 #### [facility] CLIA [id number] [address] [place] [address] [place] HBV surface Ab IA Ql (S)on 0 01-25-2022 HBV surface Ag Ql (S) Negative Normal Negative [facility] Comment on above: Order Comment: Jose Carlos oseguera Type: BLOOD SPECIMEN Ordering Facility: [facility] Address: [address] [place] [address] Performed By: #### 1 6570-4, 53641-3, 75690-1, 81657-2, 67193-4, 99823-3, 58579-0, 35661-8 #### [facility] CLIA [id number] [address] [place] [address] HBV surface Ab Ser Qlon 05-0 HBV surface Ab Ql (S) Negative Normal Negative [facility] Comment on above: Order Comment: Jose Carlos oseguera Type: BLOOD SPECIMEN Ordering Facility: [facility] Address: [address] [place] [address] Result Comment: No e vidence of current or past infection with Hepatitis B virus. Should recent infection be suspected, repeat testing may be considered 3-4 weeks after this draw. Performed By: #### 1 6570-4, 93247-6, 66111-3, 48216-9, 56842-6, 26528-9, 15096-1, 59225-6 #### [facility] CLIA [id number] [address] [place] [address] HCV Ab Ser Qlon 01-25-2022 HCV Ab Ql (S) Negative Normal Negative [facility] Comment on above: Order Comment: Jose Carlos oseguera Type: BLOOD SPECIMEN Ordering Facility: [facility] Address: [address] [place] [address] Result Comment: The result suggests no evidence of active infection with Hepatitis C virus. Should recent infection be suspected, repeat testing may be considered 4-6 weeks after this draw. Performed By: #### 1 6570-4, 93373-7, 08539-5, 36447-1, 44324-0, 92365-5, 13395-2, 59987-0 #### [facility] CLIA [id number] [address] [place] [address] Yuly-1 extractable nuclear Ab Qn (S)on 01-25-2022 YULY 1 ANTIBODY QUAL Negative Normal Negative [facility] Comment on above: Order Comment: Jose Carlos oseguera Type: BLOOD SPECIMEN Ordering Facility: [facility] Address: [address] [place] [address] Result Comment: Anti -YULY-1 antibody is used as an aid in diagnosis of polymyositis and dermatomyositis especially with pulmonary involvement. A negative result cannot rule out polymyositis or dermatomyositis. Clinical correlation is required. Test Methodology: Multiplex flow immunoassay. Performed By: #### 1 6570-4, 85511-7, 58670-9, 91775-9, 35324-4, 06742-6, 41153-1, 93890-4 #### [facility] CLIA [id number] [address] [place] [address] [place] Nuclear Ab IA Ql (S)on 01-25 ARMAN[facility] BY EIA, QUAL Negative Normal Negative [facility] Comment on above: Order Comment: Jose Carlos oseguera Type: BLOOD SPECIMEN Ordering Facility: [facility] Address: [address] [place] [address] Result Comment: The qualitative antinuclear antibody screen test performed using enzyme immunoassay including the following antigens: dsDNA, histones, SS-A, SS-B, Sm, Sm/PROCESS PROJECT ENGINEER, Scl-70, Yuly-1, and centromeric antigens. Performed By: #### 1 6570-4, 34550-9, 50267-2, 28616-3, 27064-6, 61824-2, 19997-4, 22369-4 #### [facility] CLIA [id number] [address] [place] [address] [place] RHEUMATOID FACTOR BLon 01-25 Rheumatoid factor Qn [IU]/mL <16 IU/mL [facility] Rheumatoid factor Qn [IU]/mL Normal <16 [facility] Comment on above: Order Comment: Speci men Type: BLOOD SPECIMEN Ordering Facility: [facility] Address: [address] [place] [address] Performed By: #### 1 6570-4, 11050-0, 61011-2, 50203-6, 15328-5, 13133-8, 75394-3, 76081-7 #### [facility] CLIA [id number] [address] [place] [address] [place] Ribonucleoprotein extractabl e nuclear Ab Qn (S)on 01-25-2022 ANTI-PROCESS PROJECT ENGINEER QUAL Negative Normal Negative [facility] Comment on above: Order Comment: Speci men Type: BLOOD SPECIMEN Ordering Facility: [facility] Address: [address] [place] [address] Performed By: #### 1 6570-4, 41566-5, 69363-0, 34083-7, 04287-6, 01871-7, 83465-5, 50153-8 #### [facility] CLIA [id number] [address] [place] [address] [place] RIBOSOMAL PROCESS PROJECT ENGINEER QUAL Negative Normal Negative [facility] Comment on above: Order Comment: Speci men Type: BLOOD SPECIMEN Ordering Facility: [facility] Address: [address] [place] [address] Result Comment: Anti -Ribosomal RNA (Ribosomal P) antibody is used as an aid in diagnosis of systemic autoimmune diseases especially systemic lupus erythematosus and mixed connective tissue disease. Cross-reactivity with Anti-cota antibody is not uncommon. Clinical correlation is required. Test Methodology: Multiplex flow immunoassay. Performed By: #### 1 6570-4, 68546-7, 53339-1, 60192-6, 57289-4, 64089-6, 19656-9, 64732-4 #### [facility] CLIA [id number] [address] [place] [address] [place] SCL-70 extractable nuclear I gG IA Qn (S)on 01-25-2022 SCLERODERMA AB QUAL Negative Normal Negative [facility] Comment on above: Order Comment: Speci men Type: BLOOD SPECIMEN Ordering Facility: [facility] Address: [address] [place] [address] Performed By: #### 1 6570-4, 98200-0, 63905-1, 70436-9, 95171-2, 57019-8, 31065-5, 66208-2 #### [facility] CLIA [id number] [address] [place] [address] [place] SCLERODERMA IGG AB <0.2 Normal <1.0 [facility] Comment on above: Order Comment: Speci men Type: BLOOD SPECIMEN Ordering Facility: [facility] Address: [address] [place] [address] Result Comment: Scl- 70/Scleroderma antibody test is used as an aid in diagnosis of systemic sclerosis especially the diffuse cutaneous form. A negative result cannot rule out systemic sclerosis. The final interpretation should consider clinical picture and other test results such as anti-centromere antibody. Test Methodology: Multiplex flow immunoassay. Performed By: #### 1 6570-4, 60600-6, 91060-2, 02679-3, 17800-7, 81900-6, 90140-5, 13101-2 #### [facility] CLIA [id number] [address] [place] [address] [place] Sjogrens syndrome-A extracta ble nuclear Ab Qn (S)on 01-25-2022 SSA ANTIBODY QUAL Negative Normal Negative [facility] Comment on above: Order Comment: Speci men Type: BLOOD SPECIMEN Ordering Facility: [facility] Address: [address] [place] [address] Performed By: #### 1 6570-4, 35290-1, 70224-7, 89219-7, 27458-2, 69731-9, 72033-7, 97064-7 #### [facility] CLIA [id number] [address] [place] [address] [place] Sjogrens syndrome-B extracta ble nuclear Ab Qn (S)on 01-25-2022 SSB ANTIBODY QUAL Negative Normal Negative [facility] Comment on above: Order Comment: Speci men Type: BLOOD SPECIMEN Ordering Facility: [facility] Address: [address] [place] [address] Performed By: #### 1 6570-4, 27972-3, 88935-0, 32586-3, 92439-8, 52566-3, 74204-3, 37627-1 #### [facility] CLIA [id number] [address] [place] [address] [place] Cota extractable nuclear Ig G Qn (S)on 01-25-2022 SM ANTIBODY QUAL Negative Normal Negative [facility] Comment on above: Order Comment: Speci men Type: BLOOD SPECIMEN Ordering Facility: [facility] Address: [address] [place] [address] Result Comment: Anti -Sm (Cota) antibody is used as an aid in diagnosis of systemic lupus erythematosus and its presence is associated with renal disease. A negative result cannot rule out systemic lupus erythematosus. Clinical correlation is required. Test Methodology: Multiplex flow immunoassay. Performed By: #### 1 6570-4, 30278-5, 25543-4, 59090-9, 47533-6, 83764-2, 35919-5, 49202-3 #### [facility] CLIA [id number] [address] [place] [address] [place] cCP IgG SerPl-aCncon 022 Cyclic citrullinated peptide IgG Qn <15 Normal <20 [facility] Comment on above: Order Comment: Speci men Type: BLOOD SPECIMEN Ordering Facility: [facility] Address: [address] [place], [place] [id number] Performed By: #### 1 6570-4, 30785-4, 77492-2, 66122-3, 67736-7, 02422-5, 27311-3, 93888-8 #### [facility] CLIA [id number] [address] [place] [address] [address] [place] XR ankle LT min 3V*on 2021 XR ankle LT min 3V* [facility] Other XR ankle LT min 3V* [facility] Other XR ankle LT min 3V* [address] [place] [address] [facility] Other XR ankle LT min 3V* [place] [address] [facility] Other XR ankle LT min 3V* [facility] Other XR ankle LT min 3V* Signed [facility] Other XR ankle LT min 3V* Patient: Madyson Schmid MR#: [id number] [facility] Other XR ankle LT min 3V* : 2000 Acct:[id number] [facility] Other XR ankle LT min 3V* Age/Sex: 20 / F ADM Date: 10/10/21 [facility] Other XR ankle LT min 3V* Loc: XDUCLY Room: pe: [facility] Other XR ankle LT min 3V* Attending Dr: Christina Pearce HOSPICE NURSE-C [facility] Other XR ankle LT min 3V* Ordering Provider: CARLOS Santos [facility] Other XR ankle LT min 3V* Date of Service: 10/10/21 [facility] Other XR ankle LT min 3V* XR/XR ankle LT min 3V*: Acute left ankle pain [facility] Other XR ankle LT min 3V* Copies to: CARLOS Beckman [facility] Other XR ankle LT min 3V* Left ankle 10/10/2021. [facility] Other XR ankle LT min 3V* CLINICAL DATA: Left ankle pain after twisting injury. [facility] Other XR ankle LT min 3V* FINDINGS: 3 views of the left ankle were obtained. [facility] Other XR ankle LT min 3V* No acute fracture or dislocation is identified. No other bony abnormality is seen. Anterolateral [facility] Other XR ankle LT min 3V* soft tissue swelling is noted. [facility] Other XR ankle LT min 3V* X R/XR ankle LT min 3V* [facility] Other XR ankle LT min 3V* IMPRESSION: Soft tis cody swelling. No acute bony abnormality. [facility] Other XR ankle LT min 3V* Impression dictated by: Erick Cueto Jr., M.D.10/10/2021 4:24 PM [facility] Other XR ankle LT min 3V* Dictation Location: [place] [address] [facility] Other XR ankle LT min 3V* Transcribed By: MIRELLA 10/10/21 1624 [facility] Other XR ankle LT min 3V* Dictated By: Erick Cueto Jr, MD 10/10/21 1621 [facility] [employer] Other XR ankle LT min 3V* Signed By: [facility] [employer] Other XR ankle LT min 3V* 10/10/21 1624 [facility] [employer] Other Vital Signs Date Time Vital Sign Value Performing Clinician Facility 10-02-2024 11:43-0500 Body mass index (BMI) [Ratio] 38.44 kg/m2 Osei Helena DO Work Phone: [facility] 10-02-2024 11:43-0500 Body weight 104.78 kg Osei Helena DO Work Phone: [facility] 10-02-2024 11:43-0500 Diastolic blood pressure 72 mm[Hg] Osei Helena DO Work Phone: [facility] 10-02-2024 11:43-0500 Systolic blood pressure 118 mm[Hg] Osei Helena DO Work Phone: [facility] 09-18-2024 10:52-0500 Body mass index (BMI) [Ratio] 38.74 kg/m2 Osei Helena DO Work Phone: [facility] 09-18-2024 10:52-0500 Body weight 105.6 kg Osei Helena DO Work Phone: [facility] 09-18-2024 10:52-0500 Diastolic blood pressure 68 mm[Hg] Osei Helena DO Work Phone: [facility] 09-18-2024 10:52-0500 Systolic blood pressure 118 mm[Hg] Osei Helena DO Work Phone: [facility] 09-03-2024 15:21-0500 Body mass index (BMI) [Ratio] 37.44 kg/m2 Osei Helena DO Work Phone: [facility] 09-03-2024 15:21-0500 Body weight 102.06 kg Osei Helena DO Work Phone: [facility] 09-03-2024 15:21-0500 Diastolic blood pressure 68 mm[Hg] Osei Helena DO Work Phone: [facility] 09-03-2024 15:21-0500 Systolic blood pressure 120 mm[Hg] Osei Helena DO Work Phone: [facility] 08-27-2024 13:08-0500 Body height 165.1 cm Camilla Hemmer PA Work Phone: [facility] 08-27-2024 13:08-0500 Body mass index (BMI) [Ratio] 38.11 kg/m2 Camilla Hemmer PA Work Phone: [facility] 08-27-2024 13:08-0500 Body weight 103.87 kg Camilla Hemmer PA Work Phone: [facility] 08-27-2024 13:08-0500 Diastolic blood pressure 72 mm[Hg] Camilla Hemmer PA Work Phone: [facility] 08-27-2024 13:08-0500 Heart rate 92 /min Camilla Hemmer PA Work Phone: [facility] 08-27-2024 13:08-0500 Respiratory rate 16 /min Camilla Hemmer PA Work Phone: [facility] 08-27-2024 13:08-0500 SaO2% (BldA) [Mass fraction] 98 % Camilla Hemmer PA Work Phone: [facility] 08-27-2024 13:08-0500 Systolic blood pressure 118 mm[Hg] Camilla Hemmer PA Work Phone: [facility] 08-13-2024 09:22-0500 Body height 165.1 cm Hammad Hatch MD Work Phone: [facility] 08-13-2024 09:22-0500 Body mass index (BMI) [Ratio] 36.91 kg/m2 Hammad Hatch MD Work Phone: [facility] 08-13-2024 09:22-0500 Body weight 100.61 kg Hammad Hatch MD Work Phone: [facility] 08-05-2024 09:05-0500 Body mass index (BMI) [Ratio] 36.44 kg/m2 Flori Kipton PA Work Phone: [facility] 08-05-2024 09:05-0500 Body weight 99.34 kg Flori Kipton PA Work Phone: [facility] 08-05-2024 09:05-0500 Diastolic blood pressure 68 mm[Hg] Flori Louise PA Work Phone: [facility] 08-05-2024 09:05-0500 Systolic blood pressure 110 mm[Hg] Flori Louise PA Work Phone: [facility] 07-03-2024 14:41-0400 Body mass index (BMI) [Ratio] 35.65 kg/m2 Flori Louise PA Work Phone: [facility] 07-03-2024 14:41-0400 Body weight 97.18 kg Flori Kipton PA Work Phone: [facility] 07-03-2024 14:41-0400 Diastolic blood pressure 64 mm[Hg] Flori Kipton PA Work Phone: [facility] 07-03-2024 14:41-0400 Systolic blood pressure 116 mm[Hg] Flori Louise PA Work Phone: [facility] 06-04-2024 15:53-0400 Body mass index (BMI) [Ratio] 35.36 kg/m2 Osei Helena DO Work Phone: [facility] 06-04-2024 15:53-0400 Body weight 96.39 kg Osei Helena DO Work Phone: [facility] 06-04-2024 15:53-0400 Diastolic blood pressure 70 mm[Hg] Osei Helena DO Work Phone: [facility] 06-04-2024 15:53-0400 Systolic blood pressure 126 mm[Hg] Osei Helena DO Work Phone: [facility] 05-23-2024 09:35-0400 Body mass index (BMI) [Ratio] 35.01 kg/m2 [facility] Nurse [facility] 05-23-2024 09:35-0400 Body weight 95.44 kg [facility] Nurse [facility] 05-20-2024 09:37-0400 Body height 165.1 cm Camilla Hemmer PA Work Phone: [facility] 05-20-2024 09:37-0400 Body mass index (BMI) [Ratio] 34.98 kg/m2 Camilla Hemmer PA Work Phone: [facility] 05-20-2024 09:37-0400 Body weight 95.35 kg Camilla Hemmer PA Work Phone: [facility] 05-20-2024 09:37-0400 Diastolic blood pressure 76 mm[Hg] Camilla Hemmer PA Work Phone: [facility] 05-20-2024 09:37-0400 Heart rate 87 /min Camilla Hemmer PA Work Phone: [facility] 05-20-2024 09:37-0400 Respiratory rate 16 /min Camilla Hemmer PA Work Phone: [facility] 05-20-2024 09:37-0400 SaO2% (BldA) [Mass fraction] 98 % Camilla Hemmer PA Work Phone: [facility] 05-20-2024 09:37-0400 Systolic blood pressure 108 mm[Hg] Camilla Hemmer PA Work Phone: [facility] 11-30-2023 09:33-0500 Body height 165.1 cm Jyoti Noble PA-C Work Phone: [facility] 11-30-2023 09:33-0500 Body weight 92.99 kg Jyoti Noble PA-C Work Phone: [facility] 11-30-2023 09:33-0500 Diastolic blood pressure 79 mm[Hg] Jyoti Noble PA-C Work Phone: [facility] 11-30-2023 09:33-0500 Heart rate 84 /min Jyoti Dickey PA-C Work Phone: [facility] 11-30-2023 09:33-0500 SaO2% (BldA) [Mass fraction] 96 % Jyoti Dickey PA-C Work Phone: [facility] 11-30-2023 09:33-0500 Systolic blood pressure 118 mm[Hg] Jyoti Dickey PA-C Work Phone: [facility] 06-13-2023 12:36-0400 Body height 165.1 cm Ibis A Ymra Work Phone: [facility] DO Work Phone: 06-13-2023 12:36-0400 Body mass index (BMI) [Ratio] 33.28 kg/m2 Ibis A Myra Work Phone: [facility] DO Work Phone: 06-13-2023 12:36-0400 Body surface area Derived from formula 1.98 m2 Ibis A Myra Work Phone: [facility] DO Work Phone: 06-13-2023 12:36-0400 Body weight 90.72 kg Ibis A Myra Work Phone: [facility] DO Work Phone: 06-13-2023 12:36-0400 Diastolic blood pressure 80 mm[Hg] Ibis A Myra Work Phone: [facility] DO Work Phone: 06-13-2023 12:36-0400 Heart rate 76 /min Ibis A Myra Work Phone: [facility] DO Work Phone: 06-13-2023 12:36-0400 Systolic blood pressure 116 mm[Hg] Ibis A Myra Work Phone: [facility] 600 DO Work Phone: 06-08-2023 21:50-0400 Diastolic blood pressure 59 mm[Hg] HOSPICE NURSE-C Ibis Myra Work Phone: [facility] 06-08-2023 21:50-0400 Heart rate 82 /min HOSPICE NURSE-C Ibis Myra Work Phone: [facility] 06-08-2023 21:50-0400 Respiratory rate 18 /min HOSPICE NURSE-C Ibis Myra Work Phone: [facility] 06-08-2023 21:50-0400 SaO2% (BldA) [Mass fraction] 99 % HOSPICE NURSE-C Ibis Myra Work Phone: [facility] 06-08-2023 21:50-0400 Systolic blood pressure 115 mm[Hg] HOSPICE NURSE-C Ibis Myra Work Phone: [facility] 06-08-2023 16:35-0400 Body height 165.1 cm HOSPICE NURSE-C Ibis Myra Work Phone: [facility] 06-08-2023 16:35-0400 Body temperature 97.8 [degF] HOSPICE NURSE-C Ibis Myra Work Phone: [facility] 06-08-2023 16:35-0400 Body weight 91.6 kg HOSPICE NURSE-C Ibis Myra Work Phone: [facility] 12-28-2022 15:00-0400 Body weight 89.36 kg Irvin Hanna MD Work Phone: [facility] 12-28-2022 15:00-0400 Diastolic blood pressure 86 mm[Hg] Irvin Hanna MD Work Phone: [facility] 12-28-2022 15:00-0400 Heart rate 79 /min Irvin Hanna MD Work Phone: [facility] 12-28-2022 15:00-0400 Respiratory rate 16 /min Irvin Hanna MD Work Phone: [facility] 12-28-2022 15:00-0400 Systolic blood pressure 119 mm[Hg] Irvin Hanna MD Work Phone: [facility] 10-13-2022 09:35-0500 Body height 165.1 cm Ibis A Myra Work Phone: [facility] [address] DO Work Phone: 10-13-2022 09:35-0500 Body mass index (BMI) [Ratio] 33.45 kg/m2 Ibis A Myra Work Phone: [facility] [address] DO Work Phone: 10-13-2022 09:35-0500 Body surface area Derived from formula 1.98 m2 Ibis A Myra Work Phone: [facility] 320 DO Work Phone: 10-13-2022 09:35-0500 Body weight 91.17 kg Ibis A Myra Work Phone: [facility] [address] DO Work Phone: 10-13-2022 09:35-0500 Diastolic blood pressure 70 mm[Hg] Ibis A Myra Work Phone: [facility] [address] DO Work Phone: 10-13-2022 09:35-0500 Heart rate 76 /min Ibis A Myra Work Phone: [facility] [address] DO Work Phone: 10-13-2022 09:35-0500 Systolic blood pressure 102 mm[Hg] Ibis A Myra Work Phone: [facility] [address] DO Work Phone: 09-11-2022 09:58-0500 Diastolic blood pressure 82 mm[Hg] Ibis A Myra Work Phone: [facility] 250 DO Work Phone: 09-11-2022 09:58-0500 Diastolic blood pressure 80 mm[Hg] Ibis A Myra Work Phone: [facility] 250 DO Work Phone: 09-11-2022 09:58-0500 Systolic blood pressure 112 mm[Hg] Ibis A Myra Work Phone: [facility] 250 DO Work Phone: 09-11-2022 09:58-0500 Systolic blood pressure 108 mm[Hg] Ibis A Myra Work Phone: [facility] 250 DO Work Phone: 09-11-2022 08:57-0500 Body height 165.1 cm Ibis A Myra Work Phone: [facility] 250 DO Work Phone: 09-11-2022 08:57-0500 Body mass index (BMI) [Ratio] 32.95 kg/m2 Ibis A Myra Work Phone: [facility] 250 DO Work Phone: 09-11-2022 08:57-0500 Body surface area Derived from formula 1.97 m2 Ibis A Myra Work Phone: [facility] DO Work Phone: 09-11-2022 08:57-0500 Body weight 89.81 kg Ibis A Myra Work Phone: [facility] 250 DO Work Phone: 09-11-2022 08:57-0500 Diastolic blood pressure 68 mm[Hg] Ibis A Myra Work Phone: [facility] DO Work Phone: 09-11-2022 08:57-0500 Heart rate 74 /min Ibis A Myra Work Phone: [facility] 250 DO Work Phone: 09-11-2022 08:57-0500 Systolic blood pressure 102 mm[Hg] Ibis A Myra Work Phone: [facility] 250 DO Work Phone: 07-31-2022 10:14-0500 Body weight 89.81 kg Irvin Hanna MD Work Phone: [facility] 07-31-2022 10:14-0500 Diastolic blood pressure 71 mm[Hg] Irvin Hanna MD Work Phone: [facility] 07-31-2022 10:14-0500 Heart rate 92 /min Irvin Hanna MD Work Phone: [facility] 07-31-2022 10:14-0500 Systolic blood pressure 109 mm[Hg] Irvin Hanna MD Work Phone: [facility] 07-21-2022 07:27-0400 Body height 165.1 cm Ibis A Myra Work Phone: [facility] DO Work Phone: 07-21-2022 07:27-0400 Body mass index (BMI) [Ratio] 33.45 kg/m2 Ibis A Myra Work Phone: [facility] DO Work Phone: 07-21-2022 07:27-0400 Body surface area Derived from formula 1.98 m2 Ibis A Myra Work Phone: [facility] DO Work Phone: 07-21-2022 07:27-0400 Body weight 91.17 kg Ibis A Myra Work Phone: [facility] DO Work Phone: 07-21-2022 07:27-0400 Diastolic blood pressure 72 mm[Hg] Ibis A Myra Work Phone: [facility] DO Work Phone: 07-21-2022 07:27-0400 Heart rate 64 /min Ibis A Myra Work Phone: [facility] DO Work Phone: 07-21-2022 07:27-0400 Systolic blood pressure 106 mm[Hg] Ibis A Myra Work Phone: [facility] DO Work Phone: 07-10-2022 10:45-0400 Body height 165.1 cm Ibis A Myra Work Phone: [facility] 250 DO Work Phone: 07-10-2022 10:45-0400 Body mass index (BMI) [Ratio] 32.95 kg/m2 Ibis A Myra Work Phone: [facility] 250 DO Work Phone: 07-10-2022 10:45-0400 Body surface area Derived from formula 1.97 m2 Ibis A Myra Work Phone: [facility] 250 DO Work Phone: 07-10-2022 10:45-0400 Body weight 89.81 kg Ibis A Myra Work Phone: [facility] 250 DO Work Phone: 07-10-2022 10:45-0400 Diastolic blood pressure 70 mm[Hg] Ibis A Myra Work Phone: [facility] 250 DO Work Phone: 07-10-2022 10:45-0400 Heart rate 76 /min Ibis A Myra Work Phone: [facility] 250 DO Work Phone: 07-10-2022 10:45-0400 Systolic blood pressure 104 mm[Hg] Ibis A Myra Work Phone: [facility] 250 DO Work Phone: 06-01-2022 11:36-0400 Body height 165.1 cm HOSPICE NURSE-C Ibis Myra Work Phone: [facility] 06-01-2022 11:36-0400 Body temperature 100 [degF] HOSPICE NURSE-C Ibis Myra Work Phone: [facility] 06-01-2022 11:36-0400 Body weight 88.4 kg HOSPICE NURSE-C Ibis Myra Work Phone: [facility] 06-01-2022 11:36-0400 Diastolic blood pressure 68 mm[Hg] HOSPICE NURSE-C Ibis Myra Work Phone: [facility] 06-01-2022 11:36-0400 Heart rate 99 /min HOSPICE NURSE-C Ibis Myra Work Phone: [facility] 06-01-2022 11:36-0400 Respiratory rate 18 /min HOSPICE NURSE-C Ibis Myra Work Phone: [facility] 06-01-2022 11:36-0400 SaO2% (BldA) [Mass fraction] 97 % HOSPICE NURSE-C Ibis Myra Work Phone: [facility] 06-01-2022 11:36-0400 Systolic blood pressure 121 mm[Hg] HOSPICE NURSE-C Ibis Myra Work Phone: [facility] 05-18-2022 09:42-0400 Body height 165.1 cm Ibis A Myra Work Phone: [facility] 250 DO Work Phone: 05-18-2022 09:42-0400 Body mass index (BMI) [Ratio] 31.95 kg/m2 Ibis A Myra Work Phone: [facility] 250 DO Work Phone: 05-18-2022 09:42-0400 Body surface area Derived from formula 1.94 m2 Ibis A Myra Work Phone: [facility] 250 DO Work Phone: 05-18-2022 09:42-0400 Body weight 87.09 kg Ibis A Myra Work Phone: [facility] 250 DO Work Phone: 05-18-2022 09:42-0400 Diastolic blood pressure 74 mm[Hg] Ibis A Myra Work Phone: [facility] 250 DO Work Phone: 05-18-2022 09:42-0400 Heart rate 72 /min Ibis A Myra Work Phone: [facility] 250 DO Work Phone: 05-18-2022 09:42-0400 Systolic blood pressure 102 mm[Hg] Ibis A Myra Work Phone: [facility] 250 DO Work Phone: 03-23-2022 09:11-0400 Diastolic blood pressure 80 mm[Hg] Ibis A Myra Work Phone: [facility] 250 DO Work Phone: 03-23-2022 09:11-0400 Systolic blood pressure 110 mm[Hg] Ibis A Myra Work Phone: [facility] 250 DO Work Phone: 03-23-2022 09:06-0400 Body height 166.37 cm Ibis A Myra Work Phone: [facility] 250 DO Work Phone: 03-23-2022 09:06-0400 Body mass index (BMI) [Ratio] 31.3 kg/m2 Ibis A Myra Work Phone: [facility] 250 DO Work Phone: 03-23-2022 09:06-0400 Body surface area Derived from formula 1.95 m2 Ibis A Myra Work Phone: [facility] 250 DO Work Phone: 03-23-2022 09:06-0400 Body weight 86.64 kg Ibis A Myra Work Phone: [facility] 250 DO Work Phone: 03-23-2022 09:06-0400 Diastolic blood pressure 76 mm[Hg] Ibis A Myra Work Phone: [facility] 250 DO Work Phone: 03-23-2022 09:06-0400 Heart rate 66 /min Ibis A Myra Work Phone: [facility] 250 DO Work Phone: 03-23-2022 09:06-0400 Systolic blood pressure 118 mm[Hg] Ibis A Myra Work Phone: [facility] 250 DO Work Phone: 01-25-2022 08:16-0400 Body height 165.1 cm Irvin Hanna MD Work Phone: [facility] 01-25-2022 08:16-0400 Body weight 86.36 kg Irvin Hanna MD Work Phone: [facility] 01-25-2022 08:16-0400 Diastolic blood pressure 83 mm[Hg] Irvin Hanna MD Work Phone: [facility] 01-25-2022 08:16-0400 Heart rate 71 /min Irvin Hanna MD Work Phone: [facility] 01-25-2022 08:16-0400 Systolic blood pressure 116 mm[Hg] Irvin Hanna MD Work Phone: [facility] 01-10-2022 12:45-0400 Body height 165.1 cm Ok Mckeon Other [facility] Other 01-10-2022 12:45-0400 Body mass index (BMI) [Ratio] 31.61 kg/m2 Ok Mckeon Other [facility] Other 01-10-2022 12:45-0400 Body temperature 97.8 [degF] Ok Mckeon Other [facility] Other 01-10-2022 12:45-0400 Body weight 86.18 kg Ok Tyroneseradahlia Other [facility] Other 01-10-2022 12:45-0400 Diastolic blood pressure 80 mm[Hg] Ok Mckeon Other [facility] Other 01-10-2022 12:45-0400 SaO2% (BldA) [Mass fraction] 96 % Ok Mckeon Other [facility] Other 01-10-2022 12:45-0400 Systolic blood pressure 120 mm[Hg] Ok Christyrer Other [facility] Other 10-10-2021 15:50-0500 Body height 165.1 cm Christina Pearce Other [facility] Other 10-10-2021 15:50-0500 Body mass index (BMI) [Ratio] 31.61 kg/m2 Christina Pearce Other [facility] Other 10-10-2021 15:50-0500 Body temperature 97 [degF] Christina Pearce Other [facility] Other 10-10-2021 15:50-0500 Body weight 86.18 kg Christina Pearce Other [facility] Other 10-10-2021 15:50-0500 Diastolic blood pressure 76 mm[Hg] Christina Pearce Other [facility] Other 10-10-2021 15:50-0500 Respiratory rate 18 /min Christina Pearce Other [facility] Other 10-10-2021 15:50-0500 SaO2% (BldA) [Mass fraction] 99 % Christina Pearce Other [facility] Other 10-10-2021 15:50-0500 Systolic blood pressure 123 mm[Hg] Christina Pearce Other [facility] Other Encounters Encounter Date Encounter Type Care Provider Facility Start: 10-17-2024 End: 10-17-2024 Orders Only Roshni Jo RN [facility] Comment on above: Dichorionic diamniot ic twin in third trimester (Primary Dx) Start: 10-16-2024 End: 10-16-2024 ambulatory OSEI MALIK [facility] Start: 10-15-2024 End: 10-15-2024 ambulatory OSEI HELENA Not Available Start: 10-15-2024 End: 10-15-2024 Bamboo flowsheet Osei Helena DO Work Phone: [facility] Start: 10-15-2024 End: 10-15-2024 Bamboo flowsheet Osei Helena DO Work Phone: [facility] Start: 10-02-2024 End: 10-02-2024 Bamboo flowsheet Osei Helena DO Work Phone: [facility] Start: 10-02-2024 End: 10-02-2024 Bamboo flowsheet Osei Helena DO Work Phone: [facility] Start: 10-02-2024 End: 10-02-2024 ambulatory OSEI HELENA Not Available Start: 10-02-2024 End: 10-02-2024 Office outpatient visit 15 minutes Osei Helena DO Work Phone: [facility] Comment on above: Third trimester preg presley; 29 weeks gestation of ; Gestational diabetes mellitus (GDM), antepartum, gestational diabetes method of control unspecified Start: 09-25-2024 End: 09-25-2024 Clinisync Result Encounter Osei Helena DO Work Phone: [facility] External Department Unsolicited Start: 09-25-2024 End: 09-25-2024 Clinisync Result Encounter Osei Helena DO Work Phone: [facility] External Department Unsolicited Start: 09-25-2024 End: 09-26-2024 Telephone encounter Osei Helena DO Work Phone: [facility] Start: 09-19-2024 End: 09-26-2024 Orders Only Chrissie Willis [facility] Comment on above: Dichorionic diamniot ic twin in second trimester (Primary Dx) Start: 09-18-2024 End: 09-18-2024 Bamboo flowsheet Osei Helena DO Work Phone: [facility] Start: 09-18-2024 End: 09-18-2024 Bamboo flowsheet Osei Helena DO Work Phone: [facility] Start: 09-18-2024 End: 09-18-2024 flow sheet Osei Helena DO Work Phone: [facility] Comment on above: 25 weeks gestation o f ; Second trimester ; Gestational diabetes mellitus (GDM), antepartum, gestational diabetes method of control unspecified; Elevated glucose tolerance test; Other subacute sinusitis Start: 09-18-2024 End: 09-18-2024 ambulatory OSEI HELENA Not Available Start: 09-03-2024 End: 09-03-2024 flow sheet Osei Helena DO Work Phone: [facility] Comment on above: Dichorionic diamniot ic twin in second trimester; 23 weeks gestation of Start: 09-03-2024 End: 09-03-2024 ambulatory OSEI HELENA Not Available Start: 09-03-2024 End: 09-03-2024 Bamboo flowsheet Osei Helena DO Work Phone: [facility] Start: 09-03-2024 End: 09-03-2024 Bamboo flowsheet Osei Helena DO Work Phone: [facility] Start: 09-02-2024 End: 09-02-2024 ambulatory JYOTI DICKEY Facility:[facility] Comment on above: POTS (postural ortho static tachycardia syndrome) (Primary Dx); 23 weeks gestation of Start: 09-02-2024 End: 09-02-2024 Telemedicine consultation with patient Jyoti Dickey ERICKA Work Phone: Neurology Start: 09-01-2024 End: 09-01-2024 Clinisync Result Encounter Generic External Data Provider [facility] External Department Unsolicited Start: 09-01-2024 End: 09-01-2024 Clinisync Result Encounter Generic External Data Provider [facility] External Department Unsolicited Start: 08-29-2024 End: 08-29-2024 Telephone encounter Marycarmen Kennedy RN [facility] Start: 08-27-2024 End: 08-27-2024 Bamboo flowsheet Camilla Garcia PA Work Phone: [facility] Start: 08-27-2024 End: 08-27-2024 Bamboo flowsheet Camilla Garcia PA Work Phone: [facility] Start: 08-27-2024 End: 08-27-2024 Telephone encounter Camilla Garcia PA Work Phone: [facility] Start: 08-27-2024 End: 08-27-2024 Office outpatient visit 15 minutes Camilla TOLBERT Work Phone: [facility] Comment on above: Mild intermittent as thma with acute exacerbation (CMS/HCC) (Primary Dx); POTS (postural orthostatic tachycardia syndrome) Start: 08-27-2024 End: 08-27-2024 ambulatory CAMILLA GARCIA Not Available Start: 08-20-2024 End: 08-20-2024 Clinisync Result Encounter Generic External Data Provider [facility] External Department Unsolicited Start: 08-20-2024 End: 08-20-2024 Clinisync Result Encounter Generic External Data Provider [facility] External Department Unsolicited Start: 08-15-2024 End: 08-15-2024 Orders Only Sammi Green RN [facility] Comment on above: Dichorionic diamniot ic twin in second trimester (Primary Dx); POTS (postural orthostatic tachycardia syndrome); Asthma during ; 20 weeks gestation of Start: 08-13-2024 End: 08-13-2024 Office outpatient new 45 minutes Muna Lenz MD Work Phone: [facility] Comment on above: Dichorionic diamniot ic twin in second trimester (Primary Dx); POTS (postural orthostatic tachycardia syndrome); Asthma during ; 20 weeks gestation of Start: 08-13-2024 End: 08-13-2024 ambulatory OSEI MALIK [facility] Start: 08-11-2024 End: 08-13-2024 Clinisync Result Encounter [...] Patient encounter procedure Flori TOLBERT Work Phone: [facility] Work Phone: Start: 08-05-2024 End: 08-05-2024 Periodic preventive med est patient 18-39 yrs Flori TOLBERT Work Phone: [facility] Comment on above: Well woman exam with routine gynecological exam; Second trimester ; Vaginal discharge; STD exposure; Leg cramping; Heartburn Start: 08-05-2024 End: 08-05-2024 ambulatory FLORI GIL Not Available Start: 07-24-2024 End: 07-24-2024 ambulatory Celeste Watson Facility:[facility] Scott castro Start: 07-07-2024 End: 07-07-2024 Chart abstracting Hammad Hatch MD Work Phone: [facility] Start: 07-03-2024 End: 07-03-2024 flow sheet Flori [...] [facility] Start: 07-02-2024 End: 07-02-2024 ambulatory Joie Seaman BLACKSMITH SUPERVISOR.PARTS COUNTER SALESPERSON Work Phone: Neurology Comment on above: POTS (postural ortho static tachycardia syndrome) (Primary Dx); Near syncope Start: 07-02-2024 End: 07-02-2024 Telemedicine consultation with patient Joie Seaman BLACKSMITH SUPERVISOR.PARTS COUNTER SALESPERSON Work Phone: Neurology Start: 06-10-2024 End: 06-11-2024 ambulatory Jyoti Dickey PA-C Work Phone: Neurology Comment on above: Start: 06-10-2024 End: 06-23-2024 Telephone encounter Jb Mandujano MD Work Phone: [facility] Start: 06-04-2024 End: 06-04-2024 flow sheet Osei Helena DO Work Phone: [facility] Comment on above: Twin gestation, unab le to determine number of placenta and number of amniotic sacs in first trimester; POTS (postural orthostatic tachycardia syndrome) Start: 06-04-2024 End: 06-04-2024 ambulatory OSEI HELENA Not Available Start: 06-04-2024 End: 06-04-2024 Bamboo flowsheet Osei Helena DO Work Phone: [facility] Start: 06-04-2024 End: 06-04-2024 Bamboo flowsheet Osei Helena DO Work Phone: [facility] Start: 05-24-2024 End: 05-24-2024 Clinisync Result Encounter Generic External Data Provider [facility] External Department Unsolicited Start: 05-24-2024 End: 05-24-2024 Clinisync Result Encounter Generic External Data Provider [facility] External Department Unsolicited Start: 05-23-2024 End: 05-23-2024 Office outpatient visit 5 minutes [facility] Helena Nurse [facility] Comment on above: GA: 8w6d Start: 05-23-2024 End: 05-23-2024 ambulatory OSEI DANIELSO Not Available Start: 05-20-2024 End: 05-20-2024 Bamboo flowsheet Camilla Garcia PA Work Phone: [facility] Start: 05-20-2024 End: 05-20-2024 Bamboo flowsheet Camilla Garcia PA Work Phone: [facility] Start: 05-20-2024 End: 05-20-2024 Office outpatient visit 15 minutes Camilla TOLBERT Work Phone: [facility] Comment on above: Pain of left sacroil iac joint (Primary Dx) Start: 05-20-2024 End: 05-20-2024 ambulatory CAMILLA GARCIA Not Available Start: 04-12-2024 End: 04-12-2024 ambulatory Celeste Watson Facility:[facility] Start: 04-12-2024 End: 04-12-2024 Patient encounter procedure Celeste Watson [facility] Start: 03-25-2024 Patient encounter status Camilla TOLBERT Work Phone: [facility] Start: 03-25-2024 End: 03-25-2024 ambulatory JB MANDUJANO Not Available Start: 03-20-2024 End: 03-20-2024 ambulatory Jyoti HOLTC Work Phone: Neurology Comment on above: POTS (postural ortho static tachycardia syndrome) (Primary Dx) Start: 03-20-2024 End: 03-20-2024 Telemedicine consultation with patient Jyoti Dickey TOMASZJudithAkila Work Phone: Neurology Start: 03-14-2024 End: 03-14-2024 ambulatory Celeste Watson Facility:[facility] Start: 03-14-2024 End: 03-14-2024 Patient encounter procedure Celeste Shirley [facility] Start: 02-26-2024 End: 02-26-2024 ambulatory JB MANDUJANO Not Available Start: 01-22-2024 ambulatory SILK SCREEN PRINTER Krista L Mae Facil ity: [facility] [place] Start: 01-01-2024 End: 01-01-2024 ambulatory CELESTE WATSON Not Available Start: 12-21-2023 End: 12-21-2023 ambulatory OSEI HELENA Not Available Start: 12-11-2023 End: 12-11-2023 ambulatory SILK SCREEN PRINTER Krista L Mae Facility:[facility] Neena Start: 12-11-2023 End: 12-11-2023 ambulatory CELESTE WATSON Not Available Start: 11-30-2023 End: 11-30-2023 ambulatory AURORA SANTIAGO Facility:[facility] Start: 11-30-2023 End: 11-30-2023 Patient encounter procedure Jyoti Dickey PA-C Work Phone: Neurology Comment on above: POTS (postural ortho static tachycardia syndrome) (Primary Dx) Start: 11-12-2023 End: 11-12-2023 Patient encounter procedure Autonomic 2 Neur Main [facility] Start: 11-12-2023 End: 11-12-2023 ambulatory AURORA SANTIAGO Neurology Comment on above: Procedure Start: 10-10-2023 End: 10-10-2023 ambulatory AURORA SANTIAGO Facility:[facility] Start: 07-24-2023 End: 07-24-2023 ambulatory Jocelin Ale FELIX Facility:[facility] Start: 07-20-2023 Telephone encounter Arin Tinajero RN [facility] Comment on above: Referral Follow-up Start: 07-10-2023 End: 07-10-2023 ambulatory JOSE ARMANDO GREY Facility:[facility] Start: 07-10-2023 End: 07-10-2023 Office outpatient new 30 minutes Jose Armando A Genin DO Work Phone: [facility] [place] Comment on above: Chronic pain of righ t knee (Primary Dx); Tendinopathy of gluteal region Start: 07-06-2023 Orders Only Jose Armando Rhonda Genin DO Work Phone: Orthopaedics Comment on above: Right knee pain, uns pecified chronicity (Primary Dx) Start: 07-05-2023 End: 07-05-2023 ambulatory HOSPICE NURSE-C Ibis Arenasncer Work Phone: [facility] Work Phone: Start: 07-05-2023 End: 07-05-2023 Patient encounter procedure HOSPICE NURSE-C Ibis Limer Work Phone: [facility]-Flu Vaccine Start: 06-13-2023 Office outpatient vi sit 15 minutes Ibis Limer Work Phone: -[facility] 600 DO Work Phone: Start: 06-13-2023 ambulatory Tabatha Cota Facility:[id number] Start: 06-08-2023 End: 06-08-2023 Emergency department patient visit HOSPICE NURSE-C Ibis Limer Work Phone: [facility]-Emergency Room Work Phone: Start: 04-25-2023 End: 04-25-2023 ambulatory HOSPICE NURSE-C Ibis Arenasncer Work Phone: [facility] Work Phone: Start: 04-25-2023 End: 04-25-2023 Departed Referred HOSPICE NURSE-C Ibis Limer Work Phone: [facility] [address] Work Phone: Start: 03-14-2023 ambulatory CHAN MUÑIZ Fa cility:[facility] Start: 01-18-2023 End: 01-18-2023 ambulatory HOSPICE NURSE-C Ibis Maggy Renteria Work Phone: [facility] Work Phone: Start: 01-18-2023 End: 01-18-2023 Departed Referred HOSPICE NURSE-C Ibisniharika Renteria Work Phone: [facility] [address] Work Phone: Start: 12-28-2022 End: 12-28-2022 Patient encounter procedure Irvin Hanna MD Work Phone: Rheumatology Comment on above: Pain and swelling of knee, right (Primary Dx); Joint stiffness Start: 10-31-2022 Chart Update Ibis Ely cer Work Phone: [facility] 250 DO Work Phone: Start: 10-16-[address] Melodie Alfonso ty: Start: 10-13-2022 Current tobacco non- user cad cap copd pv dm Ibis A Myra Work Phone: [facility] 320 DO Work Phone: Start: 10-13-[address] Annalee Pierre acility: Start: 09-11-2022 Office outpatient vi sit 15 minutes Ibis Ellis [facility] Work Phone: Start: 09-11-2022 Patient encounter procedure Ibisniharika Limer Work Phone: [facility] 250 DO Work Phone: Start: 09-11-[address] Melodie Alfonso ty: Start: 09-07-2022 Telephone encounter Ibis Arenasncer Work Phone: [facility] [facility] DO Work Phone: Start: 08-27-[address] Annalee Pierre acility: Start: 08-01-2022 AUDIT Ibis A Spen cer Work Phone: [facility] [facility] DO Work Phone: Start: 07-31-2022 EVENT EZEKIEL, Provider : HERIBERTO SERRANO EXPOSURE MACHINE OPERATOR [id number], Status: Pen, Time: 11:00 AM Ibis Rhonda ArenasMyra Work Phone: [facility] 250 DO Work Phone: Start: 07-31-[address] Annalee Pierre acility: Start: 07-31-2022 End: 07-31-2022 Patient encounter procedure Irvin Hanna MD Work Phone: Rheumatology Comment on above: Pain and swelling of knee, right (Primary Dx); Joint stiffness; Inflammatory arthritis Start: 07-26-2022 ambulatory IBIS Sanchez y:[facility] Start: 07-21-2022 Current tobacco non- user cad cap copd pv dm Ibis A Myra Work Phone: [facility] [facility] DO Work Phone: Start: 07-21-[address] Annalee Pierre acility: Start: 07-10-2022 Office outpatient vi sit 25 minutes Ibis A Myra Work Phone: [facility] 250 DO Work Phone: Start: 07-10-2022 Patient encounter procedure Ibis Rhonda ArenasMyra Work Phone: [facility] 250 DO Work Phone: Start: 07-10-[address] Melodie Alfonso ty: Start: 06-15-2022 Telephone encounter Ibis Rhonda ArenasMyra Work Phone: [facility] 250 DO Work Phone: Start: 06-12-2022 End: 06-12-[address] Annalee Maza Facility:[id number] Start: 06-05-2022 Patient encounter procedure Ibis A Myra Work Phone: [id number] [place] [facility] Work Phone: Start: 06-01-2022 End: 06-01-2022 Emergency department patient visit HOSPICE NURSE-C Ibis Myra Work Phone: [facility]-Emergency Room Start: 05-18-2022 Office outpatient vi sit 25 minutes Ibis A Myra Work Phone: [facility] 250 DO Work Phone: Start: 05-18-2022 Patient encounter procedure Ibis A Myra Work Phone: [facility] 250 DO Work Phone: Start: 05-08-2022 End: 05-08-2022 Patient encounter procedure HOSPICE NURSE-C Ibis Myra Work Phone: [facility]-Respiratory Therapy Start: 05-03-2022 Result Review Ibis A Spen cer Work Phone: [facility] 250 DO Work Phone: Start: 05-03-2022 [facility], Provider: María Elena Freire, Status: Pen, Time: 10:00 AM Ibis A Myra Work Phone: [facility] 250 DO Work Phone: Start: 05-03-2022 End: 05-03-2022 Patient encounter procedure HOSPICE NURSE-C Ibis Myra Work Phone: [facility] Start: 03-28-2022 EVENT EZEKIEL, Provider : HERIBERTO SINGH EXPOSURE MACHINE OPERATOR [id number], Status: Pen, Time: 8:00 AM Ibis A Myra Work Phone: [facility] 250 DO Work Phone: Start: 03-28-2022 Patient encounter procedure Ibis Arenasncer Work Phone: [facility] 250 DO Work Phone: Start: 03-26-2022 Chart Update Ibis Arenasn cer Work Phone: [facility] 250 DO Work Phone: Start: 03-24-2022 End: 03-24-2022 Patient encounter procedure HOSPICE NURSE-C Ibis Arenasncer Work Phone: [facility] [place] Start: 03-23-2022 Office consultation new/estab patient 60 min Ibis Arenasncer Work Phone: [facility] 250 DO Work Phone: Start: 03-23-2022 Office outpatient ne w 45 minutes Ibis Arenasncer Work Phone: [facility] Work Phone: Start: 02-02-2022 Telephone encounter Irvin shannon MD Work Phone: Rheumatology Comment on above: Orders Start: 01-25-2022 End: 01-25-2022 Patient encounter procedure Irvin Hanna MD Work Phone: Rheumatology Comment on above: Pain and swelling of knee, right (Primary Dx); Joint stiffness Start: 01-10-2022 End: 01-10-2022 ambulatory Ok Mckeon Other [facility] Other Start: 01-10-2022 Office outpatient ne w 45 minutes Ok Mckeon [facility] Vascular Surgery Start: 10-10-2021 End: 10-10-2021 ambulatory Christina Pearce Other [facility] Other Start: 10-10-2021 Office outpatient vi sit 15 minutes Christina Pearce [facility] [place] Procedures Date Procedure Procedure Detail Performing Clinician Start: 10-02-2024 Urnls dip stick/tabl et rgnt non-auto w/o micrscp Osei Helena DO Work Phone: Start: 09-25-2024 [facility] UA (CLEAN/CATCH) JAVA TECHNICAL MANAGER/MICRO IF IND. [facility] Work Phone: Start: 09-18-2024 Urnls dip stick/tabl et rgnt non-auto w/o micrscp [facility] Work Phone: Start: 09-03-2024 Urnls dip stick/tabl et rgnt non-auto w/o micrscp [facility] Work Phone: Start: 09-01-2024 GLUCOSE TOLERANCE 3 HOUR [facility] Work Phone: Start: 08-20-2024 ALL CBC WITH AUTO DIFF [facility] Work Phone: Start: 08-13-2024 Us preg uterus after 1st trimest 09/24 gestation [facility] Work Phone: Start: 08-11-2024 AFP, SERUM, OPEN SPI NA BIFIDA Flori TOLBERT Work Phone: Start: 08-05-2024 RECURRENT VAGINITIS (HTRX) Flori TOLBERT Work Phone: Start: 08-05-2024 Urnls dip stick/tabl et rgnt non-auto w/o micrscp Flori TOLBERT Work Phone: Start: 08-05-2024 IGP,APTIMA HPV,AGE GDLN Generic External Data Provider Start: 08-05-2024 Microscopic observat ion [Identifier] in Cervix by Cyto stain Chrissie Willis GREEN CHAIN WORKER Start: 07-03-2024 Urnls dip stick/tabl et rgnt non-auto w/o micrscp Flori TOLBERT Work Phone: Start: 06-04-2024 Urnls dip stick/tabl et rgnt non-auto w/o micrscp [facility] Work Phone: Start: 05-24-2024 Blood count complete automated Not In System Ref Prov Start: 05-24-2024 ALL CBC WITH AUTO DIFF Osei Helena DO Work Phone: Start: 05-23-2024 End: 05-23-2024 Urnls dip stick/tablet rgnt non-auto w/o micrscp Osei Helena DO Work Phone: Start: 07-10-2023 [facility] Pr ovider Historical Start: 06-08-2023 Plain chest X-ray HOSPICE NURSE-C Ibis Limer Work Phone: Start: 01-18-2023 Plain chest X-ray HOSPICE NURSE-C Ibis Limer Work Phone: Start: 05-03-2022 Plain chest X-ray HOSPICE NURSE-C Ibis Limer Work Phone: Start: 08-05-2021 Arthroscopy of knee Lorna Watson Arthroscopy of knee Ibis Arenasncer Work Phone: Cryotherapy of warts Lornachula gilliam Shirley Extraction of wisdom tooth Ibis Ellis Myra Work Phone: SARS-CoV-2, Influenz a & RSV (PCR) HOSPICE NURSE-C Ibis Limer Work Phone: Tonsillectomy and adenoidectomy Ibiseren Arenasncer Work Phone: Tonsillectomy and adenoidectomy Celeste Watson NEGATED: Highlighted row has not occurred! Total colonoscopy Ibis Limer Work Phone: Plan of Treatment Date Care Activity Detail Author Start: 03-25-2034 DTaP,Tdap and Td Vac cines (8 - Td or Tdap) DTaP,Tdap and Td Vaccines (8 - Td or Tdap) [facility] [employer] Start: 03-25-2034 Urine microalbumin profile DTaP,Tdap,Td Vaccine (8 - Td or Tdap) [facility] Start: 08-05-2027 Screening for malign ant neoplasm of cervix Pap Smear [facility] Start: 10-17-2025 End: 10-17-2025 US MFM with or without consult US MFM with or without consult Imaging Routine Dichorionic diamniotic twin in third trimester Expected: 10/17/2025 (Approximate), Expires: 10/17/2025 [employer]@ Work Phone: Comment on above: Expected: 10/17/2025 (Approximate), Expires: 10/17/2025 Start: 09-19-2025 End: 09-19-2025 US MFM with or without consult US MFM with or without consult Imaging Routine Dichorionic diamniotic twin in second trimester Expected: 09/19/2025 (Approximate), Expires: 09/19/2025 [employer] Work Phone: Comment on above: Expected: 09/19/2025 (Approximate), Expires: 09/19/2025 Start: 08-15-2025 End: 08-15-2025 US MFM with or without consult US MFM with or without consult Imaging Routine Dichorionic diamniotic twin in second trimester POTS (postural orthostatic tachycardia syndrome) Asthma during 20 weeks gestation of Expected: 08/15/2025 (Approximate), Expires: 08/15/2025 [employer] Work Phone: Comment on above: Expected: 08/15/2025 (Approximate), Expires: 08/15/2025 Start: 08-13-2025 Adult BMI Screening Adult BMI Screen ing [facility] Start: 08-13-2025 Tobacco Screening Tobacco Screening [facility] Start: 11-12-2024 End: 11-12-2024 Patient encounter procedure 11/12/2024 9:30 AM EST Appointment [facility] [address] [place] [address] [facility] Start: 10-16-2024 End: 10-16-2024 Patient encounter procedure 10/16/2024 1:00 PM EST Appointment [facility] [address] [place] [address] [facility] Start: 10-15-2024 End: 10-15-2024 Patient encounter procedure [facility] Comment on above: Arrived Start: 10-02-2024 End: 10-02-2024 Patient encounter procedure 10/02/2024 11:00 AM EST Routine [facility] [address] [place] [address] Osei Malik DO [address] [place] [address] [facility] Start: 09-23-2024 End: 09-23-2024 Patient encounter procedure 09/23/2024 1:00 PM EST Appointment [facility] [address] [place] [address] [facility] Start: 09-19-2024 End: 09-19-2024 Patient encounter procedure 09/19/2024 9:30 AM EST Appointment [facility] [address] [place] [address] [facility] Start: 09-18-2024 End: 09-18-2024 Patient encounter procedure [facility] Comment on above: Arrived Start: 09-03-2024 End: 09-03-2024 Patient encounter procedure [facility] Comment on above: Arrived Start: 09-02-2024 End: 09-02-2024 ambulatory 09/02/2024 12:15 PM EST [facility] [address] [id number] Jyoti Dickey PA-C [address] [place] [address] F/u Neurology Comment on above: F/u Start: 09-02-2024 End: 09-02-2024 ambulatory 09/02/2024 10:45 AM EST [facility] [address] [place] [address] Jyoti Dickey PA-C [address] [place], [place] [id number] F/u Neurology Comment on above: F/u Start: 08-27-2024 End: 08-27-2024 Patient encounter procedure 08/27/2024 1:00 PM EST Office Visit [facility] [address] [facility] [address] [place] [address] Camilla Garcia PA [address] [facility] [address] [place] [address] Arrived [facility] Comment on above: Arrived Start: 08-13-2024 End: 08-13-2024 Patient encounter procedure [facility] Start: 08-05-2024 End: 02-02-2025 Alpha fetoprotein, maternal Alpha fetoprotein, maternal Lab Routine Second trimester Expected: 08/05/2024 (Approximate), Expires: 02/02/2025 [facility] Comment on above: Expected: 08/05/2024 (Approximate), Expires: 02/02/2025 Start: 08-05-2024 End: 08-05-2024 Patient encounter procedure 08/05/2024 8:50 AM EST Routine [facility] [address] [place] [address] Osei Malik DO [address] [place] [address] [facility] Start: 07-03-2024 End: 07-03-2024 Patient encounter procedure [facility] Comment on above: Arrived Start: 06-04-2024 End: 06-04-2024 Patient encounter procedure [facility] Comment on above: Arrived Start: 05-25-2024 Covid-19 Vaccine () Covid-19 Vaccine () [facility] Start: 05-25-2024 Covid-19 Vaccine ( season) Covid-19 Vaccine ( season) [facility] Start: 05-25-2024 Influenza vaccination [facility] Start: 05-23-2024 End: 05-23-2025 ABO/Rh ABO/Rh Lab Routine Missed menses Expected: 05/23/2024 (Approximate), Expires: 05/23/2025 [facility] Comment on above: Expected: 05/23/2024 (Approximate), Expires: 05/23/2025 Start: 05-23-2024 End: 05-23-2025 Blood type and Indirect antibody screen panel - Blood Type and screen Lab Routine Missed menses Expected: 05/23/2024 (Approximate), Expires: 05/23/2025 [facility] Work Phone: Comment on above: Expected: 05/23/2024 (Approximate), Expires: 05/23/2025 Start: 05-23-2024 End: 05-23-2025 US Pelvis transvaginal US OB transvaginal Imaging Routine Missed menses Expected: 05/23/2024 (Approximate), Expires: 05/23/2025 [facility] Comment on above: Expected: 05/23/2024 (Approximate), Expires: 05/23/2025 Start: 05-23-2024 End: 05-23-2024 ambulatory 05/23/2024 9:00 AM EDT Initial [facility] [address] [place] [address] [facility] Start: 05-23-2024 End: 05-23-2024 Professional / ancillary services management 05/23/2024 8:30 AM EDT Ancillary Procedure [facility] [address] [place] [address] [facility] Start: 05-20-2024 End: 05-20-2024 Patient encounter procedure 05/20/2024 9:30 AM EDT Office Visit [facility] [address] [facility] [address] [place] [id number] Camilla Garcia, PA [address] [facility] [address] [place] [address] Arrived [facility]ALE[facility] Comment on above: Arrived Start: 04-20-2024 Urine microalbumin profile DTaP,Tdap,Td Vaccine (7 - Td or Tdap) [facility] Start: 09-24-2023 Depression Assessment Depression Ass [facility] Start: 05-25-2023 Covid-19 Vaccine () Covid-19 Vaccine () [facility] Start: 05-25-2023 Influenza vaccination [facility] Start: 04-25-2023 [facility] Start: 04-06-2023 FUV, Provider: Annalee Maza, Status: Pen, Time: 2:40 PM FUV, Provider: Annalee Maza, Status: Pen, Time: 2:40 PM [facility] [employer] 320 DO Work Phone: Start: 2022 PAP TESTING PAP TESTING [facility] Start: 2022 Screening for malign ant neoplasm of cervix [facility] Start: 10-13-2022 FUV, Provider: Annalee Maza, Status: Pen, Time: 9:20 AM FUV, Provider: Annalee Maza, Status: Pen, Time: 9:20 AM [facility] [employer] 320 DO Work Phone: Start: 09-24-2022 DEPRESSION ASSESSMENT DEPRESSION ASS [facility] Start: 09-11-2022 FUV, Provider: Melodie Alcaraz, Status: Pen, Time: 9:30 AM FUV, Provider: Melodie Alcaraz, Status: Pen, Time: 9:30 AM [facility] 250 DO Work Phone: Start: 09-11-2022 EVENT EZEKIEL, Provider : HERIBERTO SINGH EXPOSURE MACHINE OPERATOR 1,[id number], Status: Pen, Time: 8:30 AM EVENT EZEKIEL, Provider: HERIBERTO SINGH EXPOSURE MACHINE OPERATOR 1,[id number], Status: Pen, Time: 8:30 AM [facility] 320 DO Work Phone: Start: 08-14-2022 EVENT EZEKIEL, Provider : HERIBERTO LEMON EXPOSURE MACHINE OPERATOR 1,[id number], Status: Pen, Time: 10:00 AM EVENT EZEKIEL, Provider: HERIBERTO LEMON EXPOSURE MACHINE OPERATOR 1,[id number], Status: Pen, Time: 10:00 AM [facility] 250 DO Work Phone: Start: 07-21-2022 NPVRFRL, Provider: Annalee Maza, Status: Pen, Time: 7:20 AM NPVRFRL, Provider: Annalee Maza, Status: Pen, Time: 7:20 AM [facility] 250 DO Work Phone: Start: 07-10-2022 FUV, Provider: Melodie Alcaraz, Status: Pen, Time: 10:45 AM FUV, Provider: Melodie Alcaraz, Status: Pen, Time: 10:45 AM [facility] 250 DO Work Phone: Start: 06-05-2022 [facility], Provider: Annalee Maza, Status: Pen, Time: 10:00 AM [facility], Provider: Annalee Maza, Status: Pen, Time: 10:00 AM [facility] 250 DO Work Phone: Start: 05-25-2022 Influenza vaccination [facility] Start: 05-18-2022 FUV, Provider: Melodie Alcaraz, Status: Pen, Time: 9:15 AM FUV, Provider: Melodie Alcaraz, Status: Pen, Time: 9:15 AM [facility] 250 DO Work Phone: Start: 05-08-2022 End: 05-08-2022 Patient encounter procedure [facility] Start: 05-03-2022 SURGNONUH, Provider: María Elena Freire, Status: Pen, Time: 10:00 AM SURGNONUH, Provider: María Elena Freire, Status: Pen, Time: 10:00 AM [facility] 250 DO Work Phone: Start: 03-28-2022 EVENT EZEKIEL, Provider : HERIBERTO SINGH EXPOSURE MACHINE OPERATOR 1,[id number], Status: Pen, Time: 8:00 AM EVENT EZEKIEL, Provider: HERIBERTO SINGH EXPOSURE MACHINE OPERATOR 1,[id number], Status: Pen, Time: 8:00 AM [facility] 250 DO Work Phone: Start: 01-25-2022 End: 03-27-2022 Chronic hepatitis differentiation between hepatitis B and C virus panel - Serum or Plasma [facility] Work Phone: Comment on above: Expected: 01/25/2022 , Expires: 03/27/2022 Start: 01-25-2022 End: 03-27-2022 Complement C1 esterase inhibitor [Mass/volume] in Serum or Plasma [facility] Work Phone: Comment on above: Expected: 01/25/2022 , Expires: 03/27/2022 Start: 01-25-2022 End: 03-27-2022 Complement C2 [Mass/volume] in Serum or Plasma [facility] Work Phone: Comment on above: Expected: 01/25/2022 , Expires: 03/27/2022 Start: 09-24-2021 DEPRESSION ASSESSMENT DEPRESSION ASS ESSMENT [facility] Start: 06-16-2021 COVID-19 VACCINE (3 - Booster for Pfizer series) COVID-19 VACCINE (3 - Booster for Pfizer series) [facility] Start: 03-11-2021 COVID-19 VACCINE (3 - Booster for Pfizer series) COVID-19 VACCINE (3 - Booster for Pfizer series) [facility] Start: 02-11-2021 COVID-19 VACCINE (3 - Pfizer risk series) COVID-19 VACCINE (3 - Pfizer risk series) [facility] Start: 2020 SHINGRIX VACCINE (1 of 2) VANG GRIX VACCINE (1 of 2) [facility] Start: [address] [facility] Start: 12-03-2019 Adult BMI Follow Up Plan Adult BMI Follow Up Plan [facility] Start: 12-03-2019 Adult BMI Screening Adult BMI Screen ing [facility] Start: 12-03-2019 Anxiety Screening Anxiety Screening [facility] Start: 12-03-2019 CHLAMYDIA SCREENING (1824) CHLAMYDIA SCREENING (18) [facility] Start: 12-03-2019 Depression Screening Depression Scre ening [facility] Start: 12-03-2019 GC (GONORRHEA) SCREE NINI (1824) GC (GONORRHEA) SCREENING (1824) [facility] Start: 12-03-2019 HEPATITIS C SCREENING HEPATITIS C SC REENING [facility] Start: 12-03-2019 HIV SCREENING HIV SCREENING [facility] Start: 12-03-2019 HIV screening HIV Screening [facility] Start: 12-03-2019 Screening for Chlamy taylor trachomatis Chlamydia Screening () [facility] Start: 2017 Meningococcal B Vacc ine: Consider Based On Risk (1 of 2 - Patient Seeks Protection) Meningococcal B Vaccine: Consider Based On Risk (1 of 2 - Patient Seeks Protection) [facility] Start: 12-03-2015 PEDS TO ADULT TRANSI TION ANNUAL ASSESSMENT PEDS TO ADULT TRANSITION ANNUAL ASSESSMENT [facility] Start: 2013 Adult depression screening assessment DEPRESSION SCREENING [facility] Start: 2013 PEDS TO ADULT TRANSI TION INITIAL DISCUSSION PEDS TO ADULT TRANSITION INITIAL DISCUSSION [facility] Start: 2013 Tobacco Screening Tobacco Screening [facility] Start: 2012 HPV VACCINE (1 - 2-d ose series) HPV VACCINE (1 - 2-dose series) [facility] Start: 12-03-2011 MENINGOCOCCAL B: Con biological sciences instructor based on risk (1 of 2 - Risk Bexsero 2-dose series) MENINGOCOCCAL B: Consider based on risk (1 of 2 - Risk Bexsero 2-dose series) [facility] Start: 2010 HPV Vaccine (1 - 2-d ose series) HPV Vaccine (1 - 2-dose series) [facility] Start: 2010 HPV VACCINES (1 - 2- dose series) HPV VACCINES (1 - 2-dose series) [facility] Start: 2008 DTaP/Tdap/Td VACCINE S (1 - Tdap) DTaP/Tdap/Td VACCINES (1 - Tdap) [facility] Start: 12-03-2007 PNEUMOCOCCAL (1 - PCV) PNEUMOCOCCAL (1 - PCV) [facility] Start: 2002 MMR VACCINES (1 of 1 - Standard series) MMR VACCINES (1 of 1 - Standard series) [facility] Start: 2002 VARICELLA VACCINES ( 1 of 2 - 2-dose childhood series) VARICELLA VACCINES (1 of 2 - 2-dose childhood series) [facility] Start: 06-04-2002 COVID-19 Vaccine (#1) COVID-19 Vacci ne (#1) [facility] Start: 2001 HEPATITIS B (1 of 3 - 3-dose series) HEPATITIS B (1 of 3 - 3-dose series) [facility] Start: 2001 Hepatitis B Vaccine (1 of 3 - 3-dose series) Hepatitis B Vaccine (1 of 3 - 3-dose series) [facility] Start: 2001 HEPATITIS B VACCINES (1 of 3 - 3-dose series) HEPATITIS B VACCINES (1 of 3 - 3-dose series) [facility] Start: 2001 Screening for Chlamy taylor trachomatis Chlamydia Screening [facility] Bacteria identified in Urine by Culture Urine culture Microbiology Routine Missed menses Ordered: 05/23/2024 [facility] Comment on above: Ordered: 05/23/2024 CBC W Auto Different ial panel - Blood CBC and differential Lab Routine Missed menses Ordered: 05/23/2024 [facility] Comment on above: Ordered: 05/23/2024 CHLAMYDIA TRACHOMATI S (GENITO/STI) CHLAMYDIA TRACHOMATIS (GENITO/STI) Lab Routine STD exposure Ordered: 08/05/2024 [facility] Comment on above: Ordered: 08/05/2024 Cytology Cervical or vaginal smear or scraping study Pap Smear Pathology and Cytology Routine Well woman exam with routine gynecological exam Ordered: 08/05/2024 [facility] Comment on above: Ordered: 08/05/2024 Hemoglobin A1c/Hemoglobin.total in Blood Hemoglobin A1c Lab Routine Missed menses Ordered: 05/23/2024 [facility] Comment on above: Ordered: 05/23/2024 Hepatitis B virus ramirez rface Ag [Presence] in Serum or Plasma by Immunoassay Hepatitis B surface antigen Lab Routine Missed menses Ordered: 05/23/2024 [facility] Comment on above: Ordered: 05/23/2024 Hepatitis C virus Ab [Presence] in Serum or Plasma by Immunoassay Hepatitis C antibody Lab Routine Missed menses Ordered: 05/23/2024 [facility] Comment on above: Ordered: 05/23/2024 HIV-1/HIV-2 antigen/antibody combination immunoassay HIV-1 and HIV-2 antibodies Lab Routine Missed menses Ordered: 05/23/2024 [facility] Comment on above: Ordered: 05/23/2024 Neisseria gonorrhoea e DNA [Presence] in Unspecified specimen by PERFECTO with probe detection Neisseria gonorrhea DNA probe, direct Lab Routine STD exposure Ordered: 08/05/2024 [facility] Comment on above: Ordered: 08/05/2024 Patient Education [facility] Work Phone: Patient referral [facility] Work Phone: Reagin Ab [Presence] in Serum by RPR RPR Lab Routine Missed menses Ordered: 05/23/2024 [facility] Comment on above: Ordered: 05/23/2024 Rubella antibody, IgG Rubella an tibody, IgG Lab Routine Missed menses Ordered: 05/23/2024 [facility] Comment on above: Ordered: 05/23/2024 SURESWAB(R) ADVANCED VAGINITIS PLUS, TMA SURESWAB(R) ADVANCED VAGINITIS PLUS, TMA Pathology and Cytology Routine Vaginal discharge Ordered: 08/05/2024 [facility] Work Phone: Comment on above: Ordered: 08/05/2024 End: 08-04-2024 XR KNEE GENERAL 4V AP BOTH/PA BOTH/LAT/MERC RIGHT XR KNEE GENERAL 4V AP BOTH/PA BOTH/LAT/MERC RIGHT Radiology Routine Right knee pain, unspecified chronicity 1 Occurrences starting 07/06/2023 until 08/04/2024 [facility] Work Phone: Comment on above: 1 Occurrences starti ng 07/06/2023 until 08/04/2024 [facility] Immunizations Immunization Date Immunization Notes Care Provider Fa cili 07-24-2024 influenza, seasonal, injectable, preservative free Camilla Hemmer PA Work Phone: [facility] Work Phone: 03-25-2024 tetanus toxoid, redu richar diphtheria toxoid, and acellular pertussis vaccine, adsorbed Camilla Hemmer PA Work Phone: [facility] 07-05-2023 influenza virus vaccine, unspecified formulation Celeste Watson [facility] 07-05-2023 influenza, injectabl e, quadrivalent, preservative free Camilla Hemmer PA Work Phone: [facility] 01-14-2021 Pfizer-BioNTech COVID-19 Vacc 30 MCG/0.3ML Intramuscular Suspension Ibis A Myra Work Phone: [facility] Comment on above: Result Comment: 2023: TPVAL 12-24-2020 Pfizer-BioNTech COVID-19 Vacc 30 MCG/0.3ML Intramuscular Suspension Ibis A Myra Work Phone: [facility] Comment on above: Result Comment: 2023: TPVAL 12-11-2017 meningococcal polysaccharide (groups A, C, Y and W-135) diphtheria toxoid conjugate vaccine (MCV4P) Christina Pearce Other [facility] [employer] Other 12-11-2017 meningococcal ACWY vaccine, unspecified formulation Celeste Watson [facility] 11-06-2014 human papilloma viru s vaccine, quadrivalent Christina Pearce Other [facility] [employer] Other 11-06-2014 HPV, unspecified formulation Ibis A Myra Work Phone: [facility] 250 DO Work Phone: 06-26-2014 HPV, unspecified formulation Celeste Watson [facility] 06-26-2014 human papilloma viru s vaccine, quadrivalent Christina Portia Other [facility] [employer] Other 04-20-2014 human papilloma viru s vaccine, quadrivalent Christina Portia Other [employer] Other 04-20-2014 meningococcal polysaccharide (groups A, C, Y and W-135) diphtheria toxoid conjugate vaccine (MCV4P) Christina Portia Other [facility] [employer] Other 04-20-2014 tetanus toxoid, redu richar diphtheria toxoid, and acellular pertussis vaccine, adsorbed Christina Portia Other [facility] 04-20-2014 HPV, unspecified formulation Celeste Watson [facility] 04-20-2014 meningococcal ACWY vaccine, unspecified formulation Celeste Watson [facility] 12-27-2006 diphtheria, tetanus toxoids and acellular pertussis vaccine, unspecified formulation Ibis A Myra Work Phone: [facility] [employer] DO Work Phone: 12-27-2006 DTaP, unspecified formulation Celeste Rinradha [facility] 12-27-2006 measles, mumps, rubella, and varicella virus vaccine Ibis A Myra Work Phone: [facility] 12-27-2006 poliovirus vaccine, inactivated Ibis A Myra Work Phone: [facility] [employer] 250 DO Work Phone: 12-27-2006 poliovirus vaccine, unspecified formulation Celeste RinFanshout [facility] 02-06-2003 diphtheria, tetanus toxoids and acellular pertussis vaccine, unspecified formulation Ibis A Myra Work Phone: [place] [address] DO Work Phone: 02-06-2003 DTaP, unspecified formulation Celeste RinFanshout [facility] 02-06-2003 haemophilus influenz ae type b vaccine, conjugate unspecified formulation Ibis A Myra Work Phone: [place] [address] DO Work Phone: 02-06-2003 Hib, unspecified formulation [employer] [facility] 02-06-2003 measles, mumps and rubella virus vaccine Ibis A Myra Work Phone: [facility] 02-06-2003 varicella virus vaccine Susan ica A Myra Work Phone: [facility] 07-02-2002 diphtheria, tetanus toxoids and acellular pertussis vaccine, unspecified formulation Ibis A Myra Work Phone: [facility] [email or web address] DO Work Phone: 07-02-2002 DTaP, unspecified formulation Celeste RinFanshout [facility] 07-02-2002 haemophilus influenz ae type b vaccine, conjugate unspecified formulation Ibis A Myra Work Phone: [facility] [email or web address] DO Work Phone: 07-02-2002 Hib, unspecified formulation Celeste RinFanshout [facility] 07-02-2002 pneumococcal conjuga te vaccine, 7 valent Ibis A Myra Work Phone: [place] [phone] DO Work Phone: 07-02-2002 poliovirus vaccine, inactivated Ibis A Myra Work Phone: [place] [address] DO Work Phone: 07-02-2002 poliovirus vaccine, unspecified formulation Celeste Rinkes [facility] 05-19-2002 diphtheria, tetanus toxoids and acellular pertussis vaccine, unspecified formulation Ibis A Myra Work Phone: [place] [phone] DO Work Phone: 05-19-2002 DTaP, unspecified formulation Celeste RinFanshout [facility] 05-19-2002 haemophilus influenz ae type b conjugate and Hepatitis B vaccine Ibis A Myra Work Phone: [place] [address] DO Work Phone: 05-19-2002 pneumococcal conjuga te vaccine, 7 valent Ibis A Myra Work Phone: [place] [address] DO Work Phone: 05-19-2002 poliovirus vaccine, inactivated Ibis A Myra Work Phone: [place] [address] DO Work Phone: 05-19-2002 poliovirus vaccine, unspecified formulation Celeste RinFanshout [facility] 03-05-2002 diphtheria, tetanus toxoids and acellular pertussis vaccine, unspecified formulation Ibis A Myra Work Phone: [place] [address] DO Work Phone: 03-05-2002 DTaP, unspecified formulation Celeste RinFanshout [facility] 03-05-2002 haemophilus influenz ae type b conjugate and Hepatitis B vaccine Ibis A Myra Work Phone: [facility] 250 DO Work Phone: 03-05-2002 poliovirus vaccine, inactivated Ibis A Myra Work Phone: [facility] 250 DO Work Phone: 03-05-2002 poliovirus vaccine, unspecified formulation Celeste Watson [facility] 2001 hepatitis B vaccine, pediatric or pediatric/adolescent dosage Ibis A Myra Work Phone: [facility] Payers Date Payer Category Payer Self-pay [id number] 2023 Unknown [id number] 2022 Medicaid O [facility] MEDIC AID [id number] 2021 Private Health Insurance [id number] .[id number]. [id number] 2021 Private Health Insurance [id number] 2.16.840.1.798892.19 2020 Private Health Insurance [facility] CHOICE PLUS [id number] 2020-Present [phone] [address] [place] [address] O [id number]. [id number] 2020 Unknown [id number] 2017 Managed Care Other (unspecified) [id number]. [id number] 2013 Medicaid [facility] MEDICAID [id number] 2013-Present [phone] [address] [place] [address] Medicaid [id number]. [id number] 2013 Medicaid [id number]. 1.13.159.2. [id number] 2007 Unknown [id number] 2.16.840.1.608778.19 2001 Unknown [id number] 2.16.840.1.954582.3.579.2. 1068 2001 Unknown [id number] 2.16.840.1.856148.3.579.2. 594 2001 Unknown [id number] 2.16.840.1.894447.3.579.2. 594 2001 Unknown [id number] 2.16840.1.671043.3.579.2. 356 2001 Unknown [id number] 2.16.840.1.160129.3.579.2. 356 2001 Unknown [id number] 2.16.840.1.588238.3.579.2. 356 2001 Unknown [id number] 2.16.840.1.664776.3.579.2. 356 2001 Unknown [id number] 2.16.840.1.335641.3.579.2. 356 2001 Unknown [id number] 2.16.840.1.217827.3.579.2. 356 2001 Unknown [id number] 2.16.840.1.851857.3.579.2. 356 2001 Unknown [id number] 2.16.840.1.385637.3.579.2. 356 2001 Unknown [id number] 2.16.840.1.365724.3.579.2. 727 2001 Unknown [id number] 2.16.840.1.084910.3.579.2. 727 2001 Unknown [id number] 2.16.840.1.376394.3.579.2. 727 2001 Unknown [id number] 2.16.840.1.121254.3.579.2. 727 2001 Unknown [id number] 2.16.840.1.070012.3.579.2. 727 2001 Unknown [id number] 2.16.840.1.986975.3.579.2. 125 2001 Unknown [id number] 2.16.840.1.649100.3.579.2. 1258 2001 Unknown [id number] 2.16.840.1.944405.3.579.2. 1259 2001 Unknown [id number] 2.16.840.1.496070.3.579.2. 1258 2001 Unknown [id number] 2.16.840.1.744327.3.579.2. 1259 2001 Unknown [id number] 2.16.840.1.666561.3.579.2. 1258 2001 Unknown [id number] 2.16.840.1.749746.3.579.2. 9 2001 Unknown [id number] 2.16.840.1.689640.3.579.2. 1258 2001 Unknown [id number] 2.16.840.1.985490.3.579.2. 1259 2001 Unknown [id number] 2.16.840.1.293543.3.579.2. 1259 2001 Unknown [id number] 2.16.840.1.531872.3.579.2. 1259 2001 Unknown [id number] 2.16.840.1.892046.3.579.2. 1259 2001 Unknown [id number] 2.16.840.1.920239.3.579.2. 1259 2001 Unknown [id number] 2.16.840.1.421054.3.579.2. 9 2001 Unknown [id number] 2.16.840.1.656265.3.579.2. 1259 2001 Unknown [id number] 2.16.840.1.531473.3.579.2. 1286 2001 Unknown [id number] 2.16.840.1.477373.3.579.2. 1286 2001 Unknown [id number] 2.16.840.1.771949.3.579.2. 1286 2001 Unknown [id number] 2.16.840.1.849574.3.579.2. 1286 Unknown Unknown [place] [employer]/[place] [id number] Unknown [id number] 2.16.840.1.884318.3.579.2. 531 Social History Date Type Detail Facility [facility] Work Phone: Start: 2001 Sex Assigned At Not on file [facility] Start: 01-15-2022 End: 07-31-2022 Exposure to SARS-CoV-2 (event) Not sure [facility] Start: 11-03-2020 End: 12-28-[address] [facility] Start: 11-03-2020 End: 12-28-2022 No alcohol use No alcohol use [facility] Comment on above: very rarely soda; Start: 09-20-2019 End: 08-13-2024 Tobacco smoking status NHIS Never smoked tobacco (finding) [facility] Start: 2001 Sex Assigned At Female F [facility] Start: 07-31-2022 End: 08-13-2024 Tobacco use and exposure Smokeless tobacco non-user [facility] Adult Depression Screening Assessment [address] [facility] Start: 09-29-2023 Gender identity Identifies as female gender (finding) [facility] Start: 06-04-2024 End: 08-13-2024 Alcoholic beverage intake Ex-drinker (finding) [facility] Do you belong to any clubs or organizations such as gnosticism groups, unions, fraternal or athletic groups, or [...] [facility] Start: 04-27-2015 [facility] NEGATED: Highlighted rowStart: RIKF History of tobacco use Passive smoker [facility] Medical Equipment Procedure Code Equipment Code Equipment Origin al Text Equipment Identifier Dates 1 strip by In Vi tro route Daily Use in the morning prior to breakfast, 1 hour after each meal for a total of 4times daily. [id number] Start: 09-18-2024 End: 10-18-2024 1 each by In Vit ro route Daily Use to check FSBS four times daily [id number] Start: 09-18-2024 End: 10-18-2024 Clinical Notes 09-24-2007 to 10-02-2024 Irvin Villanuevamike, HAND PLEATER - 10/02/2024 11:00 AM ESTTelephone Encounter - Pilar Watttz, HAND PLEATER - 09/25/2024 12:42 PM ESTTelephone Encounter - Pilar Watttz, HAND PLEATER - 09/25/2024 12:42 PM EST Note Date & Type Note Facility 10-02-2024 History of Present illness Narrative Reason for Appointment: Patient ID: Madyson Mai is a 23 y.o. female who presents for Routine Visit Patient presents today for Return OB appointment. MEDICATIONS Current Outpatient Medications Medication Instructions albuterol HFA 90 mcg/act inhaler 2 puffs, Inhalation, Every 4 hours PRN Alcohol Swabs (Alcohol Prep Pad) 70 % pads 1 Pad, Topical, Daily, Use four times daily to check FSBS. Beclomethasone Diprop HFA (Qvar RediHaler) 80 MCG/ACT inhaler 1 Inhalation , Inhalation, 2 times daily RT, Rinse mouth with water after use to reduce aftertaste and incidence of candidiasis. Do not swallow. Blood Glucose Monitoring Suppl (D-Care Glucometer) w/Device kit 1 kit, Does not apply, Daily, Use four times daily to check FSBS. In the morning prior to breakfast & 1 hour after each meal for a total of 4times daily. Glucose Blood (Blood Glucose Test) strip 1 strip, In Vitro, Daily, Use in the morning prior to breakfast, 1 hour after each meal for a total of 4times daily. Inositol-D Chiro-Inositol (OVASITOL PO) 2 times daily Lancets Ultra Thin misc 1 each, In Vitro, Daily, Use to check FSBS four times daily omeprazole (PRILOSEC) 20 mg, Oral, Daily before breakfast, Do not crush or chew. Vit-Fe Fumarate-FA (M- Plus) 27-1 MG tablet [...] PVC (premature ventricular contraction) 08/13/2023 Syncope 08/13/2023 De Quervain's disease (tenosynovitis) 02/26/2024 Tension headache 03/25/2024 Resolved Ambulatory Problems Diagnosis Date Noted Thumb pain, right 02/26/2024 Influenza A 08/27/2024 Past Medical History: Diagnosis Date Polycystic ovary syndrome 12/18/23 HISTORY PAST MEDICAL HISTORY SOCIAL HISTORY Past Medical History: Diagnosis Date Asthma (CMS/HCC) Influenza A 08/27/2024 Polycystic ovary syndrome 12/18/23 POTS (postural orthostatic [...] SYSTEMS Review of Systems: Review of Systems All other systems reviewed and are negative. OBJECTIVE Objective: Physical Exam Constitutional: Appearance: Normal appearance. She is well-developed. Cardiovascular: Rate and Rhythm: Normal rate and regular rhythm. Pulmonary: Effort: Pulmonary effort is normal. Breath sounds: Normal breath sounds. Abdominal: General: Bowel sounds are normal. There is no distension. Palpations: Abdomen is soft. Tenderness: There is no abdominal tenderness. There is no guarding or rebound. Musculoskeletal: General: No swelling. Normal range of motion. Right lower leg: No edema. Left lower leg: No edema. Neurological: Mental Status: She is alert and oriented to person, place, and time. Skin: General: Skin is warm and dry. Psychiatric: Mood and Affect: Mood normal. Behavior: Behavior normal. Vitals and nursing note reviewed. Exam conducted with a teasel gig operator present. Vitals: Estimated body mass index is 38.44 kg/m as calculated from the following: Height as of 08/27/24: 5' 5 . Weight as of this encounter: 231 lb. BP: 118/72 Patient's last menstrual period was 03/22/2024. ASSESSMENT & PLAN ICD-10-CM 1. Third trimester Z34.93 POCT urinalysis dipstick manually resulted 2. 29 weeks gestation of Z3A.29 Patient presents today for a routine obstetrics appointment. Patient is currently 27w5d with a Estimated Date of Delivery: 12/27/24. Discussed asthma and inhaler with patient. Patient to call office if refills are needed or if use is becoming daily then medication could be sent for daily use verses rescue inhaler. Reviewed sugars with patient and informed her that her sugars are mainly controlled with diet. Patient to return to clinic in 2-3 weeks for routine OB appointment. Documented by Irvin Mendes LPN on behalf of: Osei Malik DO documented in this encounter [facility] 09-25-2024 Telephone encounter Note Patient called the office and states that she did lose most or all of her mucous plug she thinks on 09-24-2024 and that she is having back pain that has gotten worse over the last 3 days. Patient states that Sunday she felt babies moving a lot, Sunday not to much talked to L&D and advised her to eat sugary and lay on side she did this movements increased a little then not so much yesterday, felt a little today. Patient was advised to report to [facility] for check and she was asking if she could go to [facility] as that's closer she was advised we prefer [place] but she can go where she is comfortable. Patient states will go to [facility] as she is at work and that's closer right now. Patient advised note would be in chart. [facility] Work Phone: 09-25-2024 Miscellaneous Notes Patient called the office and states that she did lose most or all of her mucous plug she thinks on 09-24-2024 and that she is having back pain that has gotten worse over the last 3 days. Patient states that Sunday she felt babies moving a lot, Sunday not to much talked to L&D and advised her to eat sugary and lay on side she did this movements increased a little then not so much yesterday, felt a little today. Patient was advised to report to [facility] for check and she was asking if she could go to [facility] as that's closer she was advised we prefer [place] but she can go where she is comfortable. Patient states will go to [facility] as she is at work and that's closer right now. Patient advised note would be in chart. documented in this encounter [facility] 09-18-2024 History of Present illness Narrative Reason for Appointment: Patient ID: Madyson Mai is a 23 y.o. female who presents for Routine Visit Patient presents today for Return OB appointment. MEDICATIONS Current Outpatient Medications Medication Instructions albuterol HFA 90 mcg/act inhaler 2 puffs, Inhalation, Every 4 hours PRN Beclomethasone Diprop HFA (Qvar RediHaler) 80 MCG/ACT inhaler 1 Inhalation , Inhalation, 2 times daily RT, Rinse mouth with water after use to reduce aftertaste and incidence of candidiasis. Do not swallow. Inositol-D Chiro-Inositol (OVASITOL PO) 2 times daily omeprazole (PRILOSEC) 20 mg, Oral, Daily before breakfast, Do not crush or chew. Vit-Fe Fumarate-FA (M-Zak Plus) 27-1 MG tablet 1 tablet, Oral, [...] PVC (premature ventricular contraction) 08/13/2023 Syncope 08/13/2023 De Quervain's disease (tenosynovitis) 02/26/2024 Tension headache 03/25/2024 Resolved Ambulatory Problems Diagnosis Date Noted Thumb pain, right 02/26/2024 Influenza A 08/27/2024 Past Medical History: Diagnosis Date Polycystic ovary syndrome 12/18/23 HISTORY PAST MEDICAL HISTORY SOCIAL HISTORY Past Medical History: Diagnosis Date Asthma (CMS/HCC) Influenza A 08/27/2024 Polycystic ovary syndrome 12/18/23 POTS (postural orthostatic [...] Exam Constitutional: Appearance: Normal appearance. She is well-developed. Cardiovascular: Rate and Rhythm: Normal rate and regular rhythm. Pulmonary: Effort: Pulmonary effort is normal. Breath sounds: Normal breath sounds. Abdominal: General: Bowel sounds are normal. There is no distension. Palpations: Abdomen is soft. Tenderness: There is no abdominal tenderness. There is no guarding or rebound. Musculoskeletal: General: No swelling. Normal range of motion. Right lower leg: No edema. Left lower leg: No edema. Neurological: Mental Status: She is alert and oriented to person, place, and time. Skin: General: Skin is warm and dry. Psychiatric: Mood and Affect: Mood normal. Behavior: Behavior normal. Vitals and nursing note reviewed. Exam conducted with a teasel gig operator present. Vitals: Estimated body mass index is 38.74 kg/m as calculated from the following: Height as of 08/27/24: 5' 5 . Weight as of this encounter: 232 lb 12.8 oz. BP: 118/68 Patient's last menstrual period was 03/22/2024. ASSESSMENT & PLAN ICD-10-CM 1. 25 weeks gestation of Z3A.25 POCT urinalysis dipstick manually resulted 2. Second trimester Z34.92 POCT urinalysis dipstick manually resulted Return OB: Patient presents today for a routine obstetrics appointment. Patient is currently 25w5d . Patient states she is doing well but has complaints of being tired due to current . Patient has verbalizes frequent movement. labor precautions was discussed/given and patient was instructed to perform kick counts three times a day. Orders Placed This Encounter Procedures POCT urinalysis dipstick manually resulted Follow Up: Patient is to return to office in 3 week for routine OB appointment. Documented by Camilla Bar LPN on behalf of: Osei Malik DO documented in this encounter [facility] 09-03-2024 History of Present illness Narrative Reason for Appointment: Patient ID: Madyson Mai is a 23 y.o. female who presents for No chief complaint on file. Patient presents today for Return OB appointment. MEDICATIONS Current Outpatient Medications Medication Instructions albuterol HFA 90 mcg/act inhaler 2 puffs, Inhalation, Every 4 hours PRN Beclomethasone Diprop HFA (Qvar RediHaler) 80 MCG/ACT inhaler 1 Inhalation , Inhalation, 2 times daily RT, Rinse mouth with water after use to reduce aftertaste and incidence of candidiasis. Do not swallow. Inositol-D Chiro-Inositol (OVASITOL PO) Oral, 2 times daily magnesium oxide (MAG-OX) 400 mg, Oral, Daily omeprazole (PRILOSEC) 20 mg, Oral, Daily before breakfast, Do not crush or chew. Vit-Fe Fumarate-FA (M- Plus) 27-1 MG tablet [...] PVC (premature ventricular contraction) 08/13/2023 Syncope 08/13/2023 De Quervain's disease (tenosynovitis) 02/26/2024 Tension headache 03/25/2024 Resolved Ambulatory Problems Diagnosis Date Noted Thumb pain, right 02/26/2024 Influenza A 08/27/2024 Past Medical History: Diagnosis Date Polycystic ovary syndrome 12/18/23 HISTORY PAST MEDICAL HISTORY SOCIAL HISTORY Past Medical History: Diagnosis Date Asthma (CMS/HCC) Influenza A 08/27/2024 Polycystic ovary syndrome 12/18/23 POTS (postural orthostatic [...] SYSTEMS Review of Systems: Review of Systems OBJECTIVE Objective: OBGyn Exam Vitals: Estimated body mass index is 38.11 kg/m as calculated from the following: Height as of 08/27/24: 5' 5 . Weight as of 08/27/24: 229 lb. BP: Patient's last menstrual period was 03/22/2024. ASSESSMENT & PLAN ICD-10-CM 1. Dichorionic diamniotic twin in second trimester O30.042 2. 23 weeks gestation of Z3A.23 Patient presents today for a routine obstetrics appointment. Patient is currently 23w4d with a Estimated Date of Delivery: 12/27/24. Pt has heartburn- advised to take omeprazole in the evenings. Pt voiced understanding. Pt to return in 4 weeks for scheduled OB appt. Pt had recent asthma flare-up- doing well now- no rescue inhaler used. Documented by Camilla Bar LPN on behalf of: Osei Malik DO documented in this encounter [facility] 09-02-2024 History of Present illness Narrative Images from the original note were not included. [facility] Follow-Up VIRTUAL VISIT This is a virtual visit using [employer] Video Visit. It required patient-provider interaction for the medical decision making as documented below. I have communicated my name and active licensure. The patient's identity and physical location were verified at the time of this visit. Either the patient or their legal liability claims representative has been informed of the risks and benefits of -- and alternatives to -- treatment through a remote evaluation and consents to proceed with the evaluation remotely. Madyson Mai is a 23 year old female here today for a follow up regarding POTS. Today September 02, 2024 : Patient presents today for a follow up regarding POTS. Now with twins. Around 23.5 weeks along. Did have to leave clinical a few times due to symptoms. Ongoing symptoms - lightheadedness - fatigue - increased temperature - dizziness with standing Prior work up: Stress echocardiogram April 2022 [...] a prior CC echocardiographic exam for comparison. Medications Reviewed albuterol HFA (PROVENTIL HFA, VENTOLIN HFA) 90 mcg/actuation inhaler Inhale 2 Puffs as instructed every 6 hours as needed. Allergies Reviewed PAST MEDICAL HISTORY: There is no problem [...] (postural orthostatic tachycardia syndrome) (primary encounter diagnosis) (Z3A.23) 23 weeks gestation of Madyson Mai is a 23 year old female here today for follow up. Monitor, supportive therapies. Reviewed POTS and . Notify for any new or worsening symptoms. POTS Conservative Measures Increased water intake (2-2.5 liters of water daily) Increased salt intake (3-5 grams daily) Compression stockings Cardiac Rehab/ increased Exercise Shared medical appointment with Dr. Cheema I spent a total of 20 minutes on the date of the service which included preparing to see the patient, [id number] patient care, completing clinical documentation, obtaining and/or reviewing separately obtained history, performing a medically appropriate examination, and counseling and educating the patient/family/caregiver. Jyoti Dickey PA-C Neuromuscular Medicine [address] [place] [address]. [id number] Appointment: [phone] During our virtual visit encounter we discussed [...] for this visit: Compass 31 (Submitted on 08/27/2024) In the past year, have you ever [...] occurred in your general body sweating?: I haven't noticed any changes in my sweating Do your eyes feel excessively dry? : No Does your mouth feel excessively dry? : Yes For the symptom of dry eyes or dry mouth that you have had for the longest period of time, is this symptom:: Getting somewhat worse In the past year, have you noticed any changes in how quickly you get full when eating a meal?: I haven't noticed any change In the past year, have you felt excessively full or persistently full (bloated feeling) after a meal?: Never In the past year, have you vomited after a meal? : Never In the past year, have you had a cramping or colicky abdominal pain?: Never In the past year, have you [...] have you had trouble focusing your eyes?: Never Is this most troublesome symptom with your eyes (i.e. sensitivity to bright light or trouble focusing) getting:: Getting somewhat worse (Submitted on 08/27/2024) When standing up, how frequently do you get these feelings or symptoms?: Occasionally How would you rate the severity of these feelings or symptoms?: Mild In the past year, have these feelings or symptoms that you have experienced:: Stayed about the same (Submitted on 08/27/2024) What parts of your body are affected by these color changes? : Feet Are these changes in your skin color:: Staying about the same (Submitted on 08/27/2024) How severe is this sensitivity to bright light?: Mild documented in this encounter [facility] 09-02-2024 Note HNO ID: [id number] Author: JYOTI DICKEY PA-C Service: ? Author Type: Physician Machine Clothing Replacer Type: Progress Notes Filed: 09/02/2024 11:21 Note Text: [facility] Follow-Up VIRTUAL VISIT This is a virtual visit using [employer] Video Visit. It required patient-provider interaction for the medical decision making as documented below. I have communicated my name and active licensure. The patient's identity and physical location were verified at the time of this visit. Either the patient or their legal liability claims representative has been informed of the risks and benefits of -- and alternatives to -- treatment through a remote evaluation and consents to proceed with the evaluation remotely. Madyson Mai is a 23 year old female here today for a follow up regarding POTS. Today September 02, 2024 : Patient presents today for a follow up regarding POTS. Now with twins. Around 23.5 weeks along. Did have to leave clinical a few times due to symptoms. Ongoing symptoms - lightheadedness - fatigue - increased temperature - dizziness with standing Prior work up: Stress echocardiogram April 2022 [...] systolic function is normal. EF = 59 ? 5% (2D biplane) - The right ventricle is normal in size. Right ventricular systolic function is normal. - There are no significant valvular abnormalities. - The patient has not had a prior CC echocardiographic exam for comparison. Medications Reviewed albuterol HFA (PROVENTIL HFA, VENTOLIN HFA) 90 mcg/actuation inhaler Inhale 2 Puffs as instructed every 6 hours as needed. Allergies Reviewed PAST MEDICAL HISTORY: There is no problem [...] (postural orthostatic tachycardia syndrome) (primary encounter diagnosis) (Z3A.23) 23 weeks gestation of Madyson Mai is a 23 year old female here t (more content not included)... [facility] 08-29-2024 Miscellaneous Notes Senior Dot Net Developer spoke to patient . Patient has complains of SOB which she states is mainly at night time. She has recently seen her PCP who stated that her lungs are tight/restricted and prescribed her an inhaler. Today the patient is feeling better and states that when she checked her SPO2 today it was at 96%. Senior Dot Net Developer advised patient to monitor and if her O2 Sat falls under 95% and/or the inhaler does not help to present to her nearest ER. Patient verbalized understanding. documented in this encounter [facility] 08-29-2024 Telephone encounter Note Senior Dot Net Developer spoke to patient . Patient has complains of SOB which she states is mainly at night time. She has recently seen her PCP who stated that her lungs are tight/restricted and prescribed her an inhaler. Today the patient is feeling better and states that when she checked her SPO2 today it was at 96%. Senior Dot Net Developer advised patient to monitor and if her O2 Sat falls under 95% and/or the inhaler does not help to present to her nearest ER. Patient verbalized understanding. [facility] 08-27-2024 Telephone encounter Note Alternative inhaler requested by pharmacy. [facility] 08-27-2024 Miscellaneous Notes Alternative inhaler requested by pharmacy. documented in this encounter [facility] 08-27-2024 History of Present illness Narrative Images from the original note were not included. Subjective Patient ID: Madyson Mai is a 23 y.o. female who presents for asthma. Madyson is present today for evaluation of asthma. Admits she is 22 weeks with twins, she is not sure if that is what is flaring up her asthma. She has not see her pricer in a couple of years and her inhalers in June. Admits SOB especially with climbing stairs, denies cough. Goes for a 3 hour glucose test next week, because initial screen was elevated. Her Hgb was also a little low at 11.1, her RBC and hematocrit were also a little low. Sees Dr. Malik next week. Not sure if he will place her on iron. Nose has been a little dry. Did have some blood tinged sputum Sunday, but has not had any more episodes since using her humidifier. 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 Current Outpatient Medications on File Prior to Visit Medication Sig Dispense Refill Inositol-D Chiro-Inositol (OVASITOL PO) Take by mouth 2 (two) times a day magnesium oxide (Mag-Ox) 400 MG tablet Take 1 tablet (400 mg) by mouth Daily 30 tablet 3 omeprazole (PriLOSEC) [address] capsule Take 1 capsule (20 mg) by mouth in the morning. Take before meals. Do not crush or chew.. 30 capsule 11 Vit-Fe Fumarate-FA (M-Zak Plus) 27-1 MG tablet Take 1 tablet by mouth Daily 30 tablet 11 [DISCONTINUED] albuterol HFA 90 mcg/act inhaler [DISCONTINUED] fluticasone (Flovent HFA) 110 MCG/ACT inhaler Inhale 1 puff in the morning and 1 puff before bedtime. Rinse mouth with water after use to reduce aftertaste and incidence of candidiasis. Do not swallow.. No current facility-administered medications on file prior to visit. I have reviewed and reconciled the history and medication list with the patient today. Allergies Allergen Reactions Chlorhexidine Itching Fludrocortisone nausea Midodrine GI bleeding Oxycodone-Acetaminophen no narcotics, GI upset Prednisolone Gi upset Prednisone Dizziness Social History Tobacco Use Smoking status: Never Smokeless tobacco: Never Vaping Use Vaping status: Never Used Substance Use Topics Alcohol use: Not Currently Alcohol/week: 2.0 standard drinks of alcohol Comment: socially, Caffeine intake: none Drug use: Never Family History Problem Relation Name Age of Onset Diabetes Maternal Grandmother Hypertension Maternal Grandfather Johnathan Hypertension Mother's Sister Vanessa Lung cancer Maternal Great-Grandmother Other (bladder cancer) Maternal Great-Grandmother Past Medical History: Diagnosis Date Asthma (CMS/HCC) Influenza A 08/27/2024 Polycystic ovary syndrome 12/18/23 POTS (postural orthostatic tachycardia syndrome) Past Surgical History: Procedure Laterality Date HAND SURGERY Bilateral Wart removal bilateral hands KNEE ARTHROSCOPY W/ PLICA EXCISION Right 08/05/2021 Dr. Schmid TONSILECTOMY, ADENOIDECTOMY, BILATERAL MYRINGOTOMY AND TUBES WISDOM TOOTH EXTRACTION 02/2020 Visit Vitals BP 118/72 Pulse 92 Resp 16 Ht 5' 5 Wt 229 lb LMP 03/22/2024 SpO2 98% BMI 38.11 kg/m OB Status Smoking Status Never BSA 2.18 m Review of Systems Constitutional: Negative for chills, fatigue and fever. Respiratory: Positive for shortness of breath. Negative for cough and wheezing. Cardiovascular: Negative for chest pain, palpitations and leg swelling. Gastrointestinal: Negative for abdominal pain, constipation, diarrhea, nausea and vomiting. Skin: Negative for rash. Objective Physical Exam Constitutional: General: She is not in acute distress. Appearance: Normal appearance. She is well-developed. Comments: 22 Weeks HENT: Head: Normocephalic and atraumatic. Eyes: General: No scleral icterus. Conjunctiva/sclera: Conjunctivae normal. Cardiovascular: Rate and Rhythm: Normal rate and regular rhythm. Heart sounds: Normal heart sounds. No murmur heard. Pulmonary: Effort: Pulmonary effort is normal. No respiratory distress. Breath sounds: Decreased air movement present. No wheezing, rhonchi or rales. Skin: General: Skin is warm and dry. Neurological: General: No focal deficit present. Mental Status: She is alert and oriented to person, place, and time. Psychiatric: Mood and Affect: Mood normal. Behavior: Behavior normal. Assessment/Plan Diagnoses and all orders for this visit: Mild intermittent asthma with acute exacerbation (CMS/HCC) - fluticasone (Flovent HFA) 110 MCG/ACT inhaler; Inhale 1 puff in the morning and 1 puff before bedtime. Rinse mouth with water after use to reduce aftertaste and incidence of candidiasis. Do not swallow.. - albuterol HFA 90 mcg/act inhaler; Inhale 2 puffs every 4 (four) hours if needed for wheezing Refills provided on the above for patient. Encouraged her to use Flovent consistently for a few days to calm down current symptoms with Albuterol as needed for break through SOB. Reminded pt to rinse her mouth after each use of the Flovent. Recommend saline nasal spray daily to help prevent mucosal lining irritation from dryness. Contact office for any further concerns. POTS (postural orthostatic tachycardia syndrome) Reviewed importance of adequate hydration and electrolyte balance. Follow up with Dr. Malik as scheduled. Follow up if symptoms worsen or fail to improve. documented in this encounter [facility] 08-13-2024 History of Present illness Narrative Headache/epigastric [...] no Have you been seen here at [facility] in a previous ? no Recent ER visits or hospitalizations? no Bring blood sugar log or meter with you today? (Please bring them with you for every visit at [facility]) n/a Flu vaccine (Jul-November)? Yes Any [...] Resource Strain: Low Risk (02/25/2024) Received from [facility] Overall Financial Resource Strain (CARDIA) Difficulty of Paying Living Expenses: Not very hard Food Insecurity: No Food Insecurity (08/13/2024) Hunger Screening Food Insecurity - Worry: Never True Food Insecurity - Inability: Never True Transportation Needs: No Transportation Needs (02/25/2024) Received from [facility] PRAPARE - Transportation Lack of Transportation (Medical): No Lack of Transportation (Non-Medical): No Physical Activity: Inactive (02/25/2024) Received from [facility] Exercise Vital Sign Days of Exercise per Week: 0 days Minutes of Exercise per Session: 0 min Stress: No Stress Concern Present (02/25/2024) Received from [facility] [employer] - Occupational Stress Questionnaire Feeling of Stress : Only a little Social Connections: Moderately Integrated (02/25/2024) Received from [facility] Social Connection and Isolation Panel [NHANES] Frequency [...] Housing Instability: Low Risk (02/25/2024) Received from [facility] Housing Stability Vital Sign Unable to Pay [...] complications, or both, related to use. The [employer] and the [...] tachycardia syndrome) She follows with Neurology at [facility]. Last visit was on 07/02/2024. External records reviewed. 07/02/2024 - General Neurology, Joie Seaman APRN.PARTS COUNTER SALESPERSON ASSESSMENT Madyson Mai is a 23 year [...] continue with routine care in your office [facility], the CDC, and other organizations representing maternal and public health professionals recommend that , , and lactating people and those considering receive the COVID-19 vaccination. Vaccination is the best method to reduce maternal and complications of SARS-CoV-2 infection. This document was created with [employer] technology. Though I make every effort to review the dictation as it is transcribed, on occasion the spoken word can be misinterpreted by the technology leading to inappropriate words, phrases, or sentences. This note is addressed to the requesting provider as a consultation for clinical guidance. Specific medical abbreviations are occasionally used and those are generally approved by the [place]?Board of?Obstetrics and?Gynecology?as well as?Loretta s abbreviations. The above plan of care was based solely on the diagnoses for which a consultation was requested. ?More frequent testing may be indicated based on her other medical/obstetrical conditions. The management of other or medical conditions is beyond the scope of requested consultation and will continue to be followed by the primary arson and bomb investigator or primary care provider. Thank you for [...] procedures Referring and communicating with other health respiratory care practitioner (not separately reported) Documenting clinical information in the electronic or other health record Independently interpreting results (not separately reported) and communicating results to the patient/family/caregiver Care coordination (not separately reported) documented in this encounter [facility] [employer] [facility] 08-06-2024 Telephone encounter Note Can we have her schedule for a follow up appointment. Can be virtual or in person. Thanks, AM [facility] Work Phone: 08-06-2024 Miscellaneous Notes Can we have her schedule for a follow up appointment. Can be virtual or in person. Thanks, AM documented in this encounter [facility] 08-05-2024 History of Present illness Narrative Reason [...] nursing note reviewed. Exam conducted with a teasel gig operator present. Vitals: Estimated body mass index is [...] obtained without difficulty and patient was given msAFP order to have obtained. Orders Placed This Encounter Procedures CHLAMYDIA TRACHOMATIS (GENITO/STI) Neisseria gonorrhea DNA probe, direct Alpha fetoprotein, maternal POCT urinalysis dipstick manually resulted Follow Up: Patient is to return to our office in 4 weeks for routine OB appointment Documented by Annika Silva LPN on behalf of: TOMASZ Rizvi documented in this encounter [facility] 07-03-2024 History of Present illness Narrative Reason for Appointment: Patient ID: Madyson Mai is a 23 y.o. female who presents for Routine Visit Patient presents today for Return OB appointment. MEDICATIONS Current Outpatient Medications Medication Instructions albuterol HFA 90 mcg/act inhaler Vit-Fe Fumarate-FA (M-Zak Plus) 27-1 MG tablet 1 tablet, Oral, [...] current . Patient is being referred to [facility] for her twin , gave her information about who she will be seeing there. No orders of the defined types were placed in this encounter. Follow Up: Patient is to return to office in 4 weeks for routine OB appointment. Documented by Ibis Sandoval on behalf of: TOMASZ Rizvi documented in this encounter [facility] 07-02-2024 History of Present illness Narrative Images from the original note were not included. [facility] for General Neu[facility] Follow Up / Established Virtual Visit I have communicated my name and active licensure. The patient's identity and physical location were verified at the time of this visit. Either the patient or their legal liability claims representative has been informed of the risks and benefits of -- and alternatives to -- treatment through a remote evaluation and consents to proceed with the evaluation remotely. Individuals who were included in, or assisted with the encounter were: Madyson Mai Joie Seaman APRN.PARTS COUNTER SALESPERSON Chief Complaint/Issues: Madyson Mai is a 23 year old female seen in the [facility] General Neurology for: POTS Most [...] Plan 07/02/2024 - General Neurology, Joie Seaman, JOHNNY.PARTS COUNTER SALESPERSON ASSESSMENT Madyson Mai is a 23 year [...] which included preparing to see the patient, [id number] patient care, completing clinical documentation, obtaining and/or [...] and warrants attention documented in this encounter [facility] 07-02-2024 Note HNO ID: [id number] Author: JOIE SEAMAN APRN.PARTS COUNTER SALESPERSON Service: ? Author Type: Nurse Practitioner Type: Progress Notes Filed: 07/02/2024 19:57 Note Text: [facility] Follow Up / Established Virtual Visit I have communicated my name and active licensure. The patient's identity and physical location were verified at the time of this visit. Either the patient or their legal liability claims representative has been informed of the risks and benefits of -- and alternatives to -- treatment through a remote evaluation and consents to proceed with the evaluation remotely. Individuals who were included in, or assisted with the encounter were: Madyson Charlton Mariah Seaman APRN.PARTS COUNTER SALESPERSON Chief Complaint/Issues: Madyson Mai is a 23 year old female seen in the [facility] for General Neurology for: POTS Most [...] Plan 07/02/2024 - General Neurology, Joie Seaman APRN.PARTS COUNTER SALESPERSON ASSESSMENT Madyson Mai is a 23 year [...] Mostly Moderately S (more content not included)... [facility] 06-04-2024 History of Present illness Narrative Reason for [...] Exam Constitutional: Appearance: Normal appearance. She is well-developed. Cardiovascular: Rate and Rhythm: Normal rate and regular rhythm. Pulmonary: Effort: Pulmonary effort is normal. Breath sounds: Normal breath sounds. Abdominal: General: Bowel sounds are normal. There is no distension. Palpations: Abdomen is soft. Tenderness: There is no abdominal tenderness. There is no guarding or rebound. Musculoskeletal: General: No swelling. Normal range of motion. Right lower leg: No edema. Left lower leg: No edema. Neurological: Mental Status: She is alert and oriented to person, place, and time. Skin: General: Skin is warm and dry. Psychiatric: Mood and Affect: Mood normal. Behavior: Behavior normal. Vitals and nursing note reviewed. Exam conducted with a teasel gig operator present. Vitals: Estimated body mass index is 35.36 kg/m as calculated from the following: Height as of 05/20/24: 5' 5 . Weight as of this encounter: 212 lb 8 oz. BP: 126/70 Patient's last menstrual period was 03/22/2024. ASSESSMENT & PLAN ICD-10-CM 1. Twin gestation, unable to determine number of placenta and number of amniotic sacs in first trimester O30.091 POCT urinalysis dipstick manually resulted 2. POTS (postural orthostatic tachycardia syndrome) G90.A New OB: Patient presents today for 1st time obstetrics appointment with provider. Patient is currently 10w4d . Patients history has been reviewed in great detail including any potential risks. Patient stated she currently has no complaints. Pt has POTS- advised to see specialist regarding POTS, discussed possibly adding medication. Pt being referred to [facility] for TWIN gestation. Expectations throughout regarding labs, ultrasounds, and appointments have been discussed with the patient in detail. It was reiterated that the patient is to drink 6-8 glasses of water a day, eat 6 small meals a day, do not consume raw or undercooked meat, and stay away from [facility]. Patient has been consulted regarding any further do's and don'ts of . Patient voiced understanding and all questions and concerns were answered. Orders Placed This Encounter Procedures POCT urinalysis dipstick manually resulted Follow Up: Patient is to return in 4 weeks for routine OB appointment. Documented by Camilla Bar LPN on behalf of: Osei Malik DO documented in this encounter [facility] 05-23-2024 History of Present illness Narrative Reason for Appointment: Patient ID: Madyson Mai is a 23 y.o. female who presents for Amenorrhea Patient presents today for Annual Exam. MEDICATIONS Current Outpatient Medications Medication Instructions albuterol [...] Diagnosis Date Noted No Resolved Ambulatory Problems No Additional Past Medical History HISTORY PAST MEDICAL HISTORY SOCIAL HISTORY Past Medical History: Diagnosis Date Asthma (CMS/HCC) POTS (postural orthostatic tachycardia syndrome) Social History Tobacco Use Smoking status: Never Smokeless tobacco: Never Vaping Use Vaping status: Never Used Substance Use Topics Alcohol use: Not Currently Alcohol/week: 2.0 standard drinks of alcohol Types: 2 Standard drinks or equivalent per week Comment: socially, Caffeine intake: none Drug use: [...] SYSTEMS Review of Systems: Review of Systems OBJECTIVE Objective: OBGyn Exam Vitals: Estimated body mass index is 35.01 kg/m as calculated from the following: Height as of 05/20/24: 5' 5 . Weight as of this encounter: 210 lb 6.4 oz. BP: Patient's last menstrual period was 03/22/2024. ASSESSMENT & PLAN ICD-10-CM 1. Missed menses N92.6 Type and screen ABO/Rh CBC and differential Hemoglobin A1c RPR Rubella antibody, IgG Hepatitis B surface antigen Hepatitis C antibody HIV-1 and HIV-2 antibodies Urine culture US OB transvaginal POCT , urine manually resulted POCT urinalysis dipstick manually resulted Type and screen ABO/Rh Documented by Annika Silva LPN on behalf of: * No providers found * documented in this encounter [facility] 05-20-2024 History of Present illness Narrative Images from the original note were not included. Subjective Patient ID: Madyson Mai is a 23 y.o. female who presents for fall. Madyson is present today for evaluation of fall. Admits to lower back pain after a fall. She fell at work on April 30 (they do not have workmans comp) and hurt her back on the left side, pain gets worse throughout the day. She fell on her left side onto a concrete floor and has had pain since the fall. When she gets up in the morning she rates pain as a 1/10 and at night she rates the pain at a 9 or 10/10. She has tried heat but does not help, she has tried sciatic stretches but not sure that really helped at all. She is currently 8 1/2 weeks . Current Outpatient Medications on File Prior to Visit Medication Sig Dispense Refill albuterol HFA 90 mcg/act inhaler fluticasone (Flovent) 110 MCG/ACT inhaler Inhale 1 puff in the morning and 1 puff in the evening. Vit-Fe Fumarate-FA (M- Plus) 27-1 MG tablet Take 1 tablet by mouth Daily 30 tablet 11 [DISCONTINUED] clomiPHENE (Clomid) 50 MG tablet Take 2 tablets by mouth daily days 5 through 9 of menses 10 tablet 0 No current facility-administered medications on file prior to visit. Allergies Allergen Reactions Chlorhexidine Itching Fludrocortisone nausea Midodrine GI bleeding Oxycodone-Acetaminophen no narcotics, GI upset Prednisolone Gi upset Prednisone Dizziness Social History Tobacco Use Smoking status: Never Smokeless tobacco: Never Vaping Use Vaping status: Never Used Substance Use Topics Alcohol use: Not Currently Alcohol/week: 2.0 standard drinks of alcohol Types: 2 Standard drinks or equivalent per week Comment: socially, Caffeine intake: none Drug use: Never Family History Problem Relation Name Age of Onset Diabetes Maternal Grandmother Hypertension Maternal Grandfather Johnathan Hypertension Mother's Sister Vanessa Lung cancer Maternal Great-Grandmother Other (bladder cancer) Maternal Great-Grandmother Past Medical History: Diagnosis Date Asthma (CMS/HCC) POTS (postural orthostatic tachycardia syndrome) Past Surgical History: Procedure Laterality Date HAND SURGERY Bilateral Wart removal bilateral hands KNEE ARTHROSCOPY W/ PLICA EXCISION Right 08/05/2021 Dr. Schmid TONSILECTOMY, ADENOIDECTOMY, BILATERAL MYRINGOTOMY AND TUBES WISDOM TOOTH EXTRACTION 02/2020 Visit Vitals BP 108/76 Pulse 87 Resp 16 Ht 5' 5 Wt 210 lb 3.2 oz SpO2 98% BMI 34.98 kg/m OB Status Smoking Status Never BSA 2.09 m Review of Systems Constitutional: Negative for chills, fatigue and fever. Respiratory: Negative for cough, shortness of breath and wheezing. Cardiovascular: Negative for chest pain, palpitations and leg swelling. Gastrointestinal: Negative for abdominal pain, constipation, diarrhea, nausea and vomiting. Genitourinary: Negative for vaginal bleeding. Musculoskeletal: Positive for back pain and gait problem. Skin: Negative for rash. Neurological: Negative for numbness. Objective Physical Exam Constitutional: General: She is not in acute distress. Appearance: Normal appearance. HENT: Head: Normocephalic and atraumatic. Eyes: General: No scleral icterus. Cardiovascular: Rate and Rhythm: Normal rate and regular rhythm. Heart sounds: No murmur heard. Pulmonary: Effort: Pulmonary effort is normal. Breath sounds: Normal breath sounds. No wheezing, rhonchi or rales. Musculoskeletal: Lumbar back: Bony tenderness present. No spasms or tenderness. Negative right straight leg raise test and negative left straight leg raise test. Comments: Left SI joint tender to palpation Skin: General: Skin is warm and dry. Neurological: Mental Status: She is alert and oriented to person, place, and time. Sensory: No sensory deficit. Motor: No weakness. Gait: Gait normal. Psychiatric: Mood and Affect: Mood normal. Behavior: Behavior normal. Assessment/Plan Diagnoses and all orders for this visit: Pain of left sacroiliac joint Tylenol prn. Can try ice to area as heat was not helpful. Encouraged gentle stretches, handout provided. Can try topical cream for less systemic absorption. Consider critical care nurse specialist. Can provide pt with referral to PT if symptoms do not improve with the above. X-rays not yet indicated, especially as pt is . Follow up if symptoms worsen or fail to improve. documented in this encounter [facility] 03-20-2024 History of Present illness Narrative Images from the original note were not included. [facility] Neuromuscular Medicine Follow-Up VIRTUAL VISIT This is a virtual visit using [employer] Video Visit. It required patient-provider interaction for the medical decision making as documented below. I have communicated my name and active licensure. The patient's identity and physical location were verified at the time of this visit. Either the patient or their legal liability claims representative has been informed of the risks [...] which included preparing to see the patient, [id number] patient care, completing clinical documentation, obtaining and/or reviewing separately obtained history, performing a medically appropriate examination, counseling and educating the patient/family/caregiver, and ordering medications, tests, or procedures. Jyoti Dickey PA-C Neuromuscular Medicine [address] [place]. [address] Appointment: [phone] During our virtual visit encounter we discussed [...] problem? : Mild documented in this encounter [facility] 03-20-2024 Note HNO ID: [id number] Author: JYOTI DICKEY PA-C Service: ? Author Type: Physician Machine Clothing Replacer Type: Progress Notes Filed: 03/20/2024 15:17 Note Text: [facility] for Neuromuscular Medicine Follow-Up VIRTUAL VISIT This is a virtual visit using [employer] Video Visit. It required patient-provider interaction for the medical decision making as documented below. I have communicated my name and active licensure. The patient's identity and physical location were verified at the time of this visit. Either the patient or their legal liability claims representative has been informed of the risks [...] the mean hea (more content not included)... [facility] System 11-30-2023 History of Present illness Narrative Images from the original note were not included. [facility] New Patient Evaluation [...] Patient presents today for evaluation of POTS. Novemeb2020 had knee surgery and then passed out [...] experienced LOC while walking up the stairs. [place] prodromal symptoms including lightheadedness and tunnel vision. [...] Plantarflexion 5/5 5/5 Movement/Coordination Finger-to- nose-finger and pyxo-cd-nogc intact bilaterally. No evidence of ataxia arms. [...] which included preparing to see the patient, [id number] patient care, completing clinical documentation, obtaining and/or [...] on 11/30/23. Jyoti Dickey PA-C Neuromuscular Medicine [address] [place] [address]. [id number] Appointment: [phone] 1. This office note has been dictated [...] problem? : Moderate documented in this encounter [facility] 11-30-2023 Note HNO ID: [id number] Author: JYOTI DICKEY PA-C Service: ? Author Type: Physician Machine Clothing Replacer Type: Progress Notes Filed: 11/30/2023 11:14 Note Text: [facility] New Patient Evaluation [...] experienced LOC while walking up the stairs. [place] prodromal symptoms including lightheadedness and tunnel vision. [...] breathing: - Tac (more content not included)... [facility] 11-12-2023 Note HNO ID: [id number] Author: ?, ?, ? Service: ? Author [...] Care Visit completed when applicable. Gauri Harris [facility] 11-12-2023 History of Present illness Narrative UNIVERSAL [...] applicable. Gauri Harris documented in this encounter [facility] 10-10-2023 Note HNO ID: [id number] Author: AURORA SANTIAGO PA-C Service: ? Author Type: Physician Machine Clothing Replacer Type: Progress Notes Filed: 10/10/2023 16:33 Note Text: [facility] New Patient Evaluation [...] No current facility-adminis (more content not included)... [facility] 10-10-2023 Note HNO ID: [id number] Author: ANGELIQUE RUTH MD Service: ? Author [...] VE Couplets or VE Triplets were present. [facility] 07-20-2023 Telephone encounter Note Call to Madyson to discuss referral to dysautonomia clinic. Informed her that we are unable to provide dysautonomia evaluation at this time. Provided number for [facility] scheduling service. No other needs at this time. [facility] 07-20-2023 Miscellaneous Notes Call to Madyson to discuss referral to dysautonomia clinic. Informed her that we are unable to provide dysautonomia evaluation at this time. Provided number for [facility] scheduling service. No other needs at this time. documented in this encounter [facility] 07-10-2023 Note HNO ID: [id number] Author: Genin, Jose Armando A, DO Service: ? Author Type: Physician Type: Progress Notes Filed: 07/10/2023 10:08 AM Note Text: [facility] Office Visit Documentation Note [facility] Sports Medicine Orthopaedic and Rheumatologic [place] HISTORY OF PRESENT ILLNESS (HPI) CHIEF COMPLAINT / REASON FOR VISIT SERVICE DATE: July 10, 2023 PCP: No primary care provider on file. Madyson Schmid is here today at request of Dr. Jose Armando Schmid specifically for consultation of my opinion in regards to the chief complaint listed below. Correspondence will be shared today via the ITN electronic health record or through regular mail, [...] She need to consider PT or personal lines account executive. Reaction knee brace Consider [place] toradol, did discuss orthobiologics Follow up: Films prior to visit: Written instructions (see patient instructions) and verbal health education given to patient. Patient verbalizes understanding and agrees with the treatment plan. Jose Armando Grey D.O. [facility] Orthopaedic and Rheumatologic [place], [facility] AND Mark Program Team Physician, [facility] [employer] Consulting Physician, [place] Martin Nagel, Court Registry Officer [phone] [facility] 07-10-2023 History of Present illness Narrative Images from the original note were not included. [facility] Office Visit Documentation Note [facility] Sports Medicine Orthopaedic and Rheumatologic [place] HISTORY OF PRESENT ILLNESS (HPI) CHIEF COMPLAINT / REASON FOR VISIT SERVICE DATE: July 10, 2023 PCP: No primary care provider on file. Madyson Schmid is here today at request of Dr. Jose Armando Schmid specifically for consultation of my opinion in regards to the chief complaint listed below. Correspondence will be shared today via the ITN electronic health record or through regular mail, where applicable. 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 Needs to work on gluteal and quad strength as the sole treatment for 3-4 months. Essentially, needs to get moving and work on exercise goals. Admits that she doesn't like PT, as it doesn't work. I've explained timing and expectations. 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 Reaction knee brace Consider [place] toradol, did discuss orthobiologics Follow up: Films prior to visit: Written instructions (see patient instructions) and verbal health education given to patient. Patient verbalizes understanding and agrees with the treatment plan. Jose Armando Grey D.O. [facility] Orthopaedic and Rheumatologic [place], [facility] & T.E.A.M. Program Team Physician, [facility] [employer] Consulting Physician, [place]el, Court Registry Officer [phone] documented in this encounter [facility] 12-28-2022 History of Present illness Narrative Madyson [...] surgery Evaluated by DR Case ([facility] [place]) in 2020 no rheum issue found and [...] Swollen Glands: No documented in this encounter [facility] 07-31-2022 History of Present illness Narrative Madyson [...] surgery Evaluated by DR Case ([facility] [place]) in 2020 no rheum issue found and [...] Swollen Glands: No documented in this encounter [facility] 07-10-2022 History of Present illness Narrative Most [...] she did get a second opinion in [place], and no change in medication was suggested [...] with paucity of objective findings on the [id number]. Abnormal tilt table test, with a combination [...] I will defer that to Dr. Link [place] [address] DO Work Phone: 06-12-2022 Note Pre-procedure Verifi cation and Time Out: Pre-Procedure Verification and Time Out: Procedure Locationbedside PRE-PROCEDURE Verificationcompleted TIME OUT - Final Verificationcompleted immediately prior to procedure start General Information: Anesthesia Critical Care: Non-Anesthesia Date/Time of Procedure: 12-Jun-2022 Post-Procedure Diagnosis: syncope Procedure Name: tilt table test Findings: grossly normal anatomy Procedure performed by: il Machine Clothing Replacer(s): none Estimated Blood Loss (mL): none Specimen: [...] Last Updated: 14-Jun-2022 11:56 by Annalee Maza) [facility] 03-24-2022 History of Present illness Narrative [...] while walking to the bathroom.She will see pricer in the near future, she had her pulmonary function test which I reviewed, there is concern for chronic asthma, but no reactive airway disease.She has 3 dogs that she had, and 1 cat at home.She is not orthostatic. She is feeling palpitations quite a bit.Results of the pulmonary function test and a [employer] was reviewed. Also reviewed stress test and [...] that, we will have to schedule at [facility], and patient is okay with driving.4. Lifestyle modifications such as regular aerobic activity as tolerated, excessive sodium intake, and possibly low-dose beta-blockers can be tried. If her breathing gets worse on the beta-blockers, then she should stop it. We will decide after seen by pulmonary, and also after the results of culpable test are available. [facility] DO Work Phone: 03-24-2022 History of [...] while walking to the bathroom.She will see pricer in the near future, she had her pulmonary function test which I reviewed, there is concern for chronic asthma, but no reactive airway disease.She has 3 dogs that she had, and 1 cat at home.She is not orthostatic. She is feeling palpitations quite a bit.Results of the pulmonary function test and a [employer] was reviewed. Also reviewed stress test and [...] that, we will have to schedule at [facility], and patient is okay with driving.4. Lifestyle modifications such as regular aerobic activity as tolerated, excessive sodium intake, and possibly low-dose beta-blockers can be tried. If her breathing gets worse on the beta-blockers, then she should stop it. We will decide after seen by pulmonary, and also after the results of culpable test are available. -[facility]-Jose 250 DO Work Phone: 02-02-2022 Miscellaneous Notes [...] P Mathai, MD documented in this encounter [facility] 01-25-2022 History of Present illness Narrative Madyson [...] February Evaluated by DR Case ([facility] [place]) in 2020 no rheum issue found and [...] February Evaluated by DR Case ([facility] [place]) in 2020 no rheum issue found and [...] Irvin Hanna MD documented in this encounter [facility] 01-10-2022 Evaluation note Encounter Date Diagnosis Assessment Notes Dec, Skin rash (ICD-10 - R21) Dec, Other Transient recurrent color change release manager the knees and toes I do not [...] will go ahead with her evaluation in [facility]. [facility] Other 01-17-2022 Evaluation note* Encounter Date Diagnosis [...] day as needed for pain and swelling. [facility] Other 07-01-2021 History of Present illness Narrative* [...] minutes. 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 [employer] lifestyle changes and behavioral modification discussed. All questions answered in detail. Counseling over 50% visit regarding above. Patientappreciative of care. * At the end the office visit, she did report that she will be seeing an security compliance specialist in [place]. We did discuss that she could hold [...] errors as software dictation application being used. [facility] [employer] 320 DO Work Phone: [phone]) 578-941908-25-2020 History of Present illness Narrative* She is [...] exposed to secondhand smoke from her mother. [facility] Milad-Jose Cheek DO Work Phone: [phone]) 895-844007-09-2020 History of Present illness Narrative* Patient is [...] twin brother had [facility], and has history of heart murmur. [...] arise, * Sincerely, * Melodie alcaraz MD [facility] Work Phone: [phone]) [phone] History of Present illness Narrative* Patient is [...] twin brother had to be taken to [facility], and has history of heart murmur. * [...] arise, * Sincerely, * Melodie alcaraz MD [facility] [place] [address] DO Work Phone: [phone] History of Present illness Narrative* Patient is [...] twin brother had to be taken to [facility], and has history of heart murmur. * [...] arise, * Sincerely, * Melodie alcaraz MD [facility] [employer] DO Work Phone: [phone] 750-332601-01-2008 History general Narrative - Reported* Type Description Date Medical History general health good Surgical History tonsillectomy and adenoidectomy 09/2007 [facility] Other 01-01-2008 History general Narrative - Reported* Type Description Date Medical History general health good Surgical History tonsillectomy and adenoidectomy 09/2007 Surgical History right knee cleaned up scar tiss ue 2020 [facility] Other Chief complaint Narrative - ReportedMADYSON SCHMID is being seen for a cardiovascular evaluation of abnormal test(s) results and dyspnea.[facility] [employer] DO Work Phone: Chief complaint Narrative - ReportedMADYSON SCHMID is being seen for a cardiovascular evaluation of abnormal test(s) results and dyspnea.[facility] Work Phone: Evaluation + Plan note No data available for this section [facility]* Diagnosis Pain and swelling of knee, right- Primary Joint stiffness Stiffness of joint, not elsewhere classified, unspecified site [facility] noteNo assessment information availableTrihealth [facility] Work Phone: Evaluation note* Diagnosis Pain and swelling of knee, right- Primary Joint stiffness Stiffness of joint, not elsewhere classified, unspecified site Inflammatory arthritis Unspecified inflammatory polyarthropathy [facility] Diagnosis Pain and swelling of knee, right- Primary Joint stiffness Stiffness of joint, not elsewhere classified, unspecified site documented [facility]* Diagnosis Right knee pain, unspecified chronicity- Primary [facility]* Diagnosis Chronic pain of right knee- Primary Tendinopathy of gluteal region Unspecified disorder of synovium, tendon, and bursa documented [facility]* Diagnosis Orthostatic lightheadedness- Primary Dizziness and giddiness [facility]* Diagnosis POTS (postural orthostatic tachycardia syndrome)- Primary Tachycardia, unspecified [facility]* Diagnosis POTS (postural orthostatic tachycardia syndrome)- Primary Tachycardia, unspecified documented [facility]* Diagnosis POTS (postural orthostatic tachycardia syndrome)- Primary Tachycardia, unspecified Near syncope Syncope and collapse documented [facility] this [facility]* Diagnosis Second trimester state, incidental 14 weeks gestation of [facility] Diagnosis Thumb pain, right- Primary De [...] Leg cramping Heartburn documented in this encounter [facility]* Diagnosis Dichorionic diamniotic twin in second trimester- Primary POTS (postural orthostatic tachycardia syndrome) Unspecified tachycardia Asthma during 20 weeks gestation of [facility]* Diagnosis Dichorionic diamniotic twin in second trimester- Primary POTS (postural orthostatic tachycardia syndrome) Unspecified tachycardia Asthma during 20 weeks gestation of documented in this encounter [facility]* Diagnosis Thumb pain, right- Primary De Quervain's disease (tenosynovitis) Radial styloid tenosynovitis PCOS (polycystic ovarian syndrome) Polycystic ovaries POTS (postural orthostatic tachycardia syndrome) Unspecified tachycardia Tension headache- Primary Encounter for immunization POTS (postural orthostatic tachycardia syndrome) Unspecified tachycardia Well adult exam Routine general medical examination at a health care facility Mild intermittent asthma with acute exacerbation (CMS/HCC)- Primary POTS (postural orthostatic tachycardia syndrome) Unspecified tachycardia documented in this encounter [facility] HealthcareEvaluation note* Diagnosis Thumb pain, right- Primary De Quervain's disease (tenosynovitis) Radial styloid tenosynovitis PCOS (polycystic ovarian syndrome) Polycystic ovaries POTS (postural orthostatic tachycardia syndrome) Unspecified tachycardia Tension headache- Primary Encounter for immunization POTS (postural orthostatic tachycardia syndrome) Unspecified tachycardia Well adult exam Routine general medical examination at a health care facility Mild intermittent asthma with acute exacerbation (CMS/HCC)- Primary Mild persistent asthma without complication (CMS/HCC) documented in this encounter [facility] HealthcareEvaluation note* Diagnosis POTS (postural orthostatic tachycardia syndrome)- Primary Tachycardia, unspecified 23 weeks gestation of state, incidental [facility] Diagnosis Thumb pain, right- Primary De Quervain's disease (tenosynovitis) Radial styloid tenosynovitis PCOS (polycystic ovarian syndrome) Polycystic ovaries POTS (postural orthostatic tachycardia syndrome) Unspecified tachycardia Tension headache- Primary Encounter for immunization POTS (postural orthostatic tachycardia syndrome) Unspecified tachycardia Well adult exam Routine general medical examination at a health care facility Dichorionic diamniotic twin in second trimester 23 weeks gestation of documented in this encounter [facility] HealthcareEvaluation note* Diagnosis Pain of left sacroiliac joint- Primary documented in this encounter [facility]Evaluation [facility]* Diagnosis Missed menses documented in this encounter [facility]* Diagnosis Twin gestation, unable to determine number of placenta and number of amniotic sacs in first trimester POTS (postural orthostatic tachycardia syndrome) Unspecified tachycardia documented in this encounter [facility]* Diagnosis Thumb pain, right- Primary De Quervain's disease (tenosynovitis) Radial styloid tenosynovitis PCOS (polycystic ovarian syndrome) Polycystic ovaries POTS (postural orthostatic tachycardia syndrome) Unspecified tachycardia Tension headache- Primary Encounter for immunization POTS (postural orthostatic tachycardia syndrome) Unspecified tachycardia Well adult exam Routine general medical examination at a health care facility 25 weeks gestation of Second trimester state, incidental Gestational diabetes mellitus (GDM), antepartum, gestational diabetes method of control unspecified Elevated glucose tolerance test Impaired glucose tolerance test Other subacute sinusitis documented in this encounter [facility] HealthcareEvaluation note* Diagnosis Dichorionic diamniotic twin in second trimester- Primary [facility] Diagnosis Thumb pain, right- Primary De Quervain's disease (tenosynovitis) Radial styloid tenosynovitis PCOS (polycystic ovarian syndrome) Polycystic ovaries POTS (postural orthostatic tachycardia syndrome) Unspecified tachycardia Tension headache- Primary Encounter for immunization POTS (postural orthostatic tachycardia syndrome) Unspecified tachycardia Well adult exam Routine general medical examination at a health care facility Third trimester state, incidental 29 weeks gestation of Gestational diabetes mellitus (GDM), antepartum, gestational diabetes method of control unspecified documented in this encounter [facility]* Diagnosis Dichorionic diamniotic twin in third trimester- Primary documented in this encounter [facility] SystemHistory of Present illness Narrative* The [...] heart murmur and had been transferred to [facility] * There is no change [...] patient that she saw Dr. Muñiz at [facility] for second opinion regarding neurally mediated syncope and near syncope. He agreed with evaluation and management and patient opted to follow-up here at [facility] in [place]. * Zio patch August 2022. All rhythms [...] needed, treatment options, risks, benefits, and imponderables. [employer] lifestyle changes and behavioral modification discussed. All questions answered in detail. Counseling over 50% visit regarding above. Patient appreciative of care. * Grammar * Please excuse grammatical or dictation errors as software dictation application being used. [facility] 320 DO Work Phone: History of Present illness Narrative* The patient states she has been generally stable since the last visit. * Symptoms: denies chest pain at rest, denies exertional chest pain, denies dyspnea, stable fatigue, denies exercise intolerance, stable palpitations, denies edema, denies orthopnea, stable dizziness and stable orthostatic dizziness. * Disease Monitoring: [facility] 600 DO Work Phone: Hospital Discharge instructions No data available for this section [facility] SystemInstructionsNot on filedocumented in this encounter [facility] SystemInstructionsNot on filedocumented in this encounter [facility] SystemInstructionsNot on filedocumented in this encounter [facility] SystemInstructionsNot on filedocumented in this encounter [facility] SystemInstructionsNot on filedocumented in this encounter [facility] SystemProgress note No data available for this section [facility] SystemReason for referral (narrative)* Diagnostic Procedure Only (Routine) - Pending Review Specialty Diagnoses / Procedures Referred By Rachel lópez Referred To Contact XR IMAGING Diagnoses Right knee pain, unspecified chronicity Procedures XR KNEE GENERAL 4V AP BOTH/PA BOTH/LAT/MERC RIGHT RADIOLOGIC EXAM KNEE COMPLETE 4/[place] [address] [place] [address] [place] [id number] Referral ID Status Reason Start Date Expiration Date Visits Requested Visits Authorized [id number] Pending Review Auto-Generat ed Referral 3 08/04/2024 1 1 [facility] for visit Narrativerash knee referral from Cj Jaimes, She gets a funny rash on her knee and toesNorth RUN Other Summary Purpose Family History No Family [...] testing.f/u testing.Abnormal Tilt and syncopeAbnormal Tilt and syncopeKYLA BROWN is being seen for a 2 month [...] or prosecute any alcohol or drug abuse patient.[facility] CampusIn the event this information is protected by the Federal Confidentiality of Alcohol and Drug Abuse Patient Records regulations: The Federal rules restrict any use of the information to criminally investigate or prosecute any alcohol or drug abuse patient.[facility] CampusIn the event this information is protected by the Federal Confidentiality of Alcohol and Drug Abuse Patient Records regulations: The Federal rules restrict any use of the information to criminally investigate or prosecute any alcohol or drug abuse patient.[facility] CampusIn the event this information is protected by the Federal Confidentiality of Alcohol and Drug Abuse Patient Records regulations: The Federal rules restrict any use of the information to criminally investigate or prosecute any alcohol or drug abuse patient.[facility] CampusIn the event this information is protected by the Federal Confidentiality of Alcohol and Drug Abuse Patient Records regulations: The Federal rules restrict any use of the information to criminally investigate or prosecute any alcohol or drug abuse patient.[facility] CampusIn the event this information is protected by the Federal Confidentiality of Alcohol and Drug Abuse Patient Records regulations: The Federal rules restrict any use of the information to criminally investigate or prosecute any alcohol or drug abuse patient.[facility]In the event this information is protected by the Federal Confidentiality of Alcohol and Drug Abuse Patient Records regulations: The Federal rules restrict any use of the information to criminally investigate or prosecute any alcohol or drug abuse patient.[facility] CampusIn the event this information is protected by the Federal Confidentiality of Alcohol and Drug Abuse Patient Records regulations: The Federal rules restrict any use of the information to criminally investigate or prosecute any alcohol or drug abuse patient.[facility] CampusIn the event this information is protected by the Federal Confidentiality of Alcohol and Drug Abuse Patient Records regulations: The Federal rules restrict any use of the information to criminally investigate or prosecute any alcohol or drug abuse patient.[facility] CampusIn the event this information is protected by the Federal Confidentiality of Alcohol and Drug Abuse Patient Records regulations: The Federal rules restrict any use of the information to criminally investigate or prosecute any alcohol or drug abuse patient.[facility] [place] CampusIn the event this information is protected by the Federal Confidentiality of Alcohol and Drug Abuse Patient Records regulations: The Federal rules restrict any use of the information to criminally investigate or prosecute any alcohol or drug abuse patient.[facility] [place] CampusIn the event this information is protected by the Federal Confidentiality of Alcohol and Drug Abuse Patient Records regulations: The Federal rules restrict any use of the information to criminally investigate or prosecute any alcohol or drug abuse patient.[facility] [place] CampusIn the event this information is protected by the Federal Confidentiality of Alcohol and Drug Abuse Patient Records regulations: The Federal rules restrict any use of the information to criminally investigate or prosecute any alcohol or drug abuse patient.[facility] [place] [facility] Reason for Visit (unrecogniz ed section and [...] Screening Reason Comments [place] POTS Reason Comments Amenorrhea INFORMATION SOURCE (unrecogn ized section and content) DATE CREATED AUTHOR 02/03/2022 [facility] DATE CREATED AUTHOR AUTHOR'S ORGANIZ ATION 06/24/2022 [facility] DATE CREATED AUTHOR AUTHOR'S ORGANIZ ATION 09/15/2022 [email or web address] DATE CREATED AUTHOR AUTHOR'S ORGANIZ ATION 03/16/2023 [facility] DATE CREATED AUTHOR AUTHOR'S ORGANIZ ATION 06/15/2023 [facility] DATE CREATED AUTHOR AUTHOR'S ORGANIZ ATION 07/11/2023 [facility] DATE CREATED AUTHOR AUTHOR'S ORGANIZ ATION 03/15/2024 [facility] DATE CREATED AUTHOR AUTHOR'S ORGANIZ ATION 04/15/2024 [facility] DATE CREATED AUTHOR AUTHOR'S ORGANIZ ATION 07/11/2024 [facility] DATE CREATED AUTHOR AUTHOR'S ORGANIZ ATION 07/26/2024 [facility] DATE CREATED AUTHOR AUTHOR'S ORGANIZ ATION 09/05/2024 [facility] DATE CREATED AUTHOR AUTHOR'S ORGANIZ ATION 10/17/2024 [facility] dical [facility] DATE CREATED AUTHOR AUTHOR'S ORGANIZ ATION 10/18/2024 [facility] Care Teams (unrecognized sec tion and content) Team Status: Inactive Member Role Status Dates Ibis Renteria HOSPICE NURSE-C Primary Care Provider Activ e Guerita Davidson [...] Active Member Role Status Dates Ibis Renteria HOSPICE NURSE-C Primary Care Provider Activ e Team Status: Inactive Member Role Status Dates Ibis Renteria HOSPICE NURSE-C Primary Care Provider Activ e Dyllan Pearce APRN Emergency Provider Active Team Status: Inactive Member Role Status Dates Ibis Renteria HOSPICE NURSE-C Primary Care Provider Activ e Christina Perez APRN Attending Provider Active Team Status: Inactive Member Role Status Dates Ibis Renteria HOSPICE NURSE-C Primary Care Provider Activ e Carlitos Nguyen Jr, DO Attending Provider Active Fire Control System Installer Relationship Specialty Start Date End Date Ibis Renteria CNP [address] [place] [address] PCP - General Nurse Practitioner 07/09/23 Fire Control System Installer Relationship Specialty Start Date End Date Ibis Renteria CNP [address] [place] [address] PCP - General Nurse Practitioner 07/09/23 Team Status: Inactive Member Role Status Dates Ibis Renteria , TIKA-C Primary Care Provider Activ gloria Martino , Emergency Provider Active Team Status: Inactive Member Role Status Dates Ibis Renteria , HOSPICE NURSE-C Primary Care Provider Activ gloria Barnes , DO [facility] Attending Provider Active Fire Control System Installer Relationship Specialty Start Date End Date Jb Mandujano MD [address] [facility] [address] [place] [address] PCP - General Family Medicine 05/20/24 Osei Malik DO [address] [place] [address] Referring Physician Obstetrics and Gynecology 06/05/24 Flori Gil PA [facility] [address] [place], [id number] Physician Machine Clothing Replacer Obstetrics and Gynecology 06/05/24 Fire Control System Installer Relationship Specialty Start Date End Date Jb Mandujano MD [address] [facility] [address] [place] [address] PCP - General Family Medicine 05/20/24 Osei Malik DO [address] [place] [address] Referring Physician Obstetrics and Gynecology 06/05/24 Flori Gil PA [address] [place] [address] Physician Machine Clothing Replacer Obstetrics and Gynecology 06/05/24 Fire Control System Installer Relationship Specialty Start Date End Date Ander Boateng MD [address] [place] [address] PCP - General 11/30/17 Fire Control System Installer Relationship Specialty Start Date End Date Jb Mandujano MD [address] [facility] [address] [place] [address] PCP - General Family Medicine 05/20/24 Osei Malik, DO [address] [place] [address] Referring Physician Obstetrics and Gynecology 06/05/24 Flori Gil PA [address] [place] [address] Physician Machine Clothing Replacer Obstetrics and Gynecology 06/05/24 Fire Control System Installer Relationship Specialty Start Date End Date Jb Mandujano MD [address] [place] [address] PCP - General Family Medicine 05/20/24 Osei Malik, DO [address] [place] [address] Referring Physician Obstetrics and Gynecology 06/05/24 Flori Gil PA [address] [place] [address] Physician Machine Clothing Replacer Obstetrics and Gynecology 06/05/24 Fire Control System Installer Relationship Specialty Start Date End Date Jb Mandujano MD [address] [place] [address] [place] [address] PCP - General Family Medicine 05/20/24 Osei Malik, DO [address] [place] [address] Referring Physician Obstetrics and Gynecology 06/05/24 Flori Gil PA [address] [place] [address] Physician Machine Clothing Replacer Obstetrics and Gynecology 06/05/24 Fire Control System Installer Relationship Specialty Start Date End Date Ander Boateng MD [address] [place] [address] PCP - General 11/30/17 Fire Control System Installer Relationship Specialty Start Date End Date Jb Mandujano MD [address] [facility] [address] [place] [address] PCP - General Family Medicine 05/20/24 Osei Malik, DO [address] [place] [address] Referring Physician Obstetrics and Gynecology 06/05/24 Flori Gil PA [address] [place] [address] Physician Machine Clothing Replacer Obstetrics and Gynecology 06/05/24 Fire Control System Installer Relationship Specialty Start Date End Date Jb Mandujano MD [address] [facility] [address] [place] [address] PCP - General Family Medicine 05/20/24 Osei Malik, DO [address] [place] [address] Referring Physician Obstetrics and Gynecology 06/05/24 Flori Gil PA [address] [place] [address] Physician Machine Clothing Replacer Obstetrics and Gynecology 06/05/24 Fire Control System Installer Relationship Specialty Start Date End Date Ander Boateng MD [address] [place], [place] [id number] PCP - General 11/30/17 Fire Control System Installer Relationship Specialty Start Date End Date Jb Mandujano MD [address] [facility] [address] [place] [address] PCP - General Family Medicine 05/20/24 Osei Malik DO [facility] [place] [address] Referring Physician Obstetrics and Gynecology 06/05/24 Flori Gil PA [facility] [place] [address] Physician Machine Clothing Replacer Obstetrics and Gynecology 06/05/24 Fire Control System Installer Relationship Specialty Start Date End Date Jb Mandujano MD [address] [facility] [address] [place] [address] PCP - General Family Medicine 05/20/24 Osei Malik DO [facility] [place] [address] Referring Physician Obstetrics and Gynecology 06/05/24 Flori Gil PA [facility] [place] [address] Physician Machine Clothing Replacer Obstetrics and Gynecology 06/05/24 Fire Control System Installer Relationship Specialty Start Date End Date Ander Boateng MD [address] [place], [place] [id number] PCP - General 11/30/17 Fire Control System Installer Relationship Specialty Start Date End Date Jb Mandujano MD [address] [place] [address] PCP - General Family Medicine 05/20/24 Osei Malik DO [address] [place] [address] Referring Physician Obstetrics and Gynecology 06/05/24 Flori Gil PA [address] [place] [address] Physician Machine Clothing Replacer Obstetrics and Gynecology 06/05/24 Fire Control System Installer Relationship Specialty Start Date End Date Jb Mandujano MD [address] [facility] [address] [place] [address] PCP - General Family Medicine 05/20/24 Fire Control System Installer Relationship Specialty Start Date End Date Jb Mandujano MD [address] [facility] [address] [place] [address] PCP - General Family Medicine 05/20/24 Fire Control System Installer Relationship Specialty Start Date End Date Jb Mandujano MD [address] [facility] [address] [place] [address] PCP - General Family Medicine 05/20/24 Fire Control System Installer Relationship Specialty Start Date End Date Jb Mandujano MD [address] [facility] [address] [place] [address] PCP - General Family Medicine 05/20/24 Fire Control System Installer Relationship Specialty Start Date End Date Jb Mandujano MD [address] [facility] [address] [place] [address] PCP - General Family Medicine 05/20/24 Osei Malik DO [address] [place] [address] Referring Physician Obstetrics and Gynecology 06/05/24 Flori Gil PA [address] [place] [address] Physician Machine Clothing Replacer Obstetrics and Gynecology 06/05/24 Fire Control System Installer Relationship Specialty Start Date End Date Jb Mandujano MD [address] [facility] [address] [place] [address] PCP - General Family Medicine 05/20/24 Osei Malik DO [facility] [place] [address] Referring Physician Obstetrics and Gynecology 06/05/24 Flori Gil PA [facility] [place] [address] Physician Machine Clothing Replacer Obstetrics and Gynecology 06/05/24 Fire Control System Installer Relationship Specialty Start Date End Date Jb Mandujano MD [address] [facility] [address] [place] [address] PCP - General Family Medicine 05/20/24 Osei Malik DO [facility] [place] [address] Referring Physician Obstetrics and Gynecology 06/05/24 Flori Gil PA [address] [place] [address] Physician Machine Clothing Replacer Obstetrics and Gynecology 06/05/24 Fire Control System Installer Relationship Specialty Start Date End Date Jb Mandujano MD [address] [facility] [address] [place] [address] PCP - General Family Medicine 05/20/24 Osei Malik, DO [address] [place] [address] Referring Physician Obstetrics and Gynecology 06/05/24 Flori Gil PA [address] [place] [address] Physician Machine Clothing Replacer Obstetrics and Gynecology 06/05/24 Fire Control System Installer Relationship Specialty Start Date End Date Ander Boateng MD [address] [place] [address] PCP - General 11/30/17 Fire Control System Installer Relationship Specialty Start Date End Date Jb Mandujano MD [address] [facility] [address] [place] [address] PCP - General Family Medicine 05/20/24 Osei Malik, DO [address] [place] [address] Referring Physician Obstetrics and Gynecology 06/05/24 Flori Gil PA [address] [place] [address] Physician Machine Clothing Replacer Obstetrics and Gynecology 06/05/24 Fire Control System Installer Relationship Specialty Start Date End Date Jb Mandujano MD [address] [facility] [address] [place] [address] PCP - General Family Medicine 05/20/24 Osei Malik, [address] [place] [address] Referring Physician Obstetrics and Gynecology 06/05/24 Flori Gil PA [address] [place] [address] [place] [address] Physician Machine Clothing Replacer Obstetrics and Gynecology 06/05/24 Fire Control System Installer Relationship Specialty Start Date End Date Ander Boateng MD [address] [place] [address] PCP - General 11/30/17 Goals (unrecognized [...] BE BASED ON THE PRIMARY CLINICAL RECORDS. [employer] [facility]. provides no warranty or guarantee of the accuracy or completeness of information in this document.
[2024-10-18 20:15] VITALS: BP 127/74; PULSE 146
[2024-10-18 20:19] VITALS: TEMP 36.1
[2024-10-18] MEDS: 0.9 % SODIUM CHLORIDE 1,000 ML 999 ML IV (21:14)
[2024-10-18] MEDS: ONDANSETRON PF 4 MG/2 ML VIAL IV (21:15)
== END 2024-10-18 23:10 | disposition home or self-care (01) ==
LOC: FBC 20:00
PROVIDERS: Admitting Provider Obstetrics & Gynecology Gynecology; PCP Family Medicine; Visit Provider Obstetrics & Gynecology Gynecology
DX: O21.2 Late vomiting of pregnancy (principal); Z3A.30 30 weeks gestation of pregnancy
CPT/HCPCS: 59025; 96374; G0378; G0379; J2405

== ENCOUNTER 2024-10-22 05:15 | Outpatient (OUT) | payer OTHER, SELFPAY ==
--- OUTSIDE RECORDS SUMMARY | 2024-10-22 05:18 | XMS_ITS | CCD ---
Author Organization [facility] Care Team Providers Care Ship Worker Name Role Phone Unavailable Primary Care Provider [...] Primary Care Provider JOHNNY Perez Attending Provider [phone] CHAN MUÑIZ Attending UnavailIBIS Salas Referring Unavailable [...] Myra Ibis GOODSON Primary Care Provider Myra, 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 Ibis Winter Primary Care Provider DO Haris Martino Emergency Provider [phone] DO Nam Barnes Attending Provider JB MANDUJANO Primary Care Physician Rinkes, Celeste Admitting Unavailable Rinkes, Celeste Attending Unavailable Jocelin FELIX Attending Unavailable Mae, CONVEYOR LOADER Krista L Attending Unavailable Mae, CONVEYOR LOADER Krista L Attending Unavailable Unavailable Primary Care Provider Unavailabl e Rinkes, Celeste Attending Unavailable Rinkes, Celeste Admitting Unavailable Rinkes, Celeste Attending Unavailable Rinkes, Celeste Admitting Unavailable Jb Mandujano MD Primary Care Provider Osei Malik DO Unavailable Flori Sam Unavailable Ander Boateng MD [facility] Unavailable Ibis Renteria Primary Care [...] / oxyCODONE; Translations: [acetaminophen-o xycodone] Drug Allergy [facility] Comment on above: no narcotics, GI ups et Chlorhexidine (1 source) Chlorhexidine; Translations: [chlorhexidine topical] Drug Allergy Itching [facility] Corticosteroids (1 source) predniSONE; Translations: [prednisone] Drug Allergy [facility] (15 sources) Morphinan opioid; Translations: [OPIOIDS - MORPHINE ANALOGUES] Propensity to adverse reactions to drug 01-26-20 Other: See Comments [facility] (20 sources) predniSONE; Translations: [predniSONE] Drug Allergy 01-26-20 22 Other: See Comments, Dizziness [facility] (20 sources) prednisoLONE; Translations: [prednisolone] Drug Allergy 01-11-20 22 GI Disturbance [facility] Other (15 sources) Fludrocortisone; Translations: [Florinef TABS] Drug Allergy Nausea [facility] DO Work Phone: (20 sources) Midodrine; Translations: [midodrine] Drug Allergy 08-13-20 23 GI bleeding [facility] (3 sources) Acetaminophen / oxyCODONE; Translations: [Percocet] Drug Allergy [facility] (4 sources) Chlorhexidine; Translations: [chlorhexidine topical] Drug Allergy Itching [facility] (7 sources) Acetaminophen / oxyCODONE; Translations: [acetaminophen-o xycodone] Drug Allergy 07-07-20 24 GI Disturbance [facility] Comment on above: no narcotics, GI ups et (20 sources) Acetaminophen / oxyCODONE; Translations: [OXYCODONE-ACETA MINOPHEN] Drug Allergy 02-26-20 24 [facility] (20 sources) Chlorhexidine; Translations: [CHLORHEXIDINE] Drug Allergy 02-21-20 23 Itching [facility] Work Phone: (20 sources) Fludrocortisone; Translations: [FLUDROCORTISONE ] Drug Allergy 07-26-20 22 Nausea [facility] (20 sources) Prednisone Allergy to substance 02-18-20 23 Dizziness [facility] (1 source) predniSONE Drug Allergy 06-08-20 23 [facility] Medications Current Medications Medication Drug Class(es) Dates Sig (Normalized) Sig (Original) [id number] 200 actuat albuterol 0.09 mg/actuat metered dose [...] beclomethasone dipropionate 0.08 mg/actuat metered dose inhaler (16 sources) Corticosteroid Start: Beclomethasone Diprop HFA (Qvar RediHaler) 80 MCG/ACT inhaler Indications: Mild persistent asthma without complication (CMS/HCC) Inhale 1 Inhalation in the morning and 1 Inhalation before bedtime. Rinse mouth with water after use to reduce aftertaste and incidence of candidiasis. Do not swallow.. 10.6 g 5 08/27/2024 Active clomiPHENE citrate 50 mg oral tablet [...] Evra A ctive Inositol-D Chiro-Inositol (OVASITOL PO) (18 sources) Inositol-D Chiro-Inositol (OVASITOL PO) Take by mouth 2 (two) times a day Active metroNIDAZOLE 500 mg oral tablet (1 [...] this medication. 14 tablet 08/07/2024 08/14/2024 Active [place] (No Known Home Meds) (1 source) Start: [place] (No Known Home Meds) Active June 08, 2023 12:00am omeprazole 20 mg delayed release oral capsule (20 sources) Proton Pump Inhibitor Start: End: take 1 capsule by mouth before mealtime omeprazole (PriLOSEC) [address] capsule Indications: Heartburn Take 1 capsule (20 mg) by mouth in the morning. Take before meals. Do not crush or chew.. 30 capsule 11 08/05/2024 08/05/2025 Active Start: 12-11-2023 take 1 capsule by [facility] once daily omeprazole 40 mg Cap-DR 40 mg = 1 cap(s), Oral, Daily, # 30 cap(s), Refills(s) 1, Pharmacy: [facility] 1155, 168.3, cm, 12/11/23 13:07:00 EDT, Height/Length Dosing, 93.6, kg, 12/11/23 13:07:00 EDT, Weight Dosing Start Date: 12/11/23 Status: Ordered no115/iron/folic acid ( 19 ORAL) (6 sources) no115/i jami/folic acid ( 19 ORAL) Take by mouth. Active Vit-Fe Fumarate-FA (M-Zak Plus) 27-1 MG tablet (20 sources) Start: [...] directed 6 tablet 07/08/2024 08/05/2024 Discontinued (Other) Blood Glucose Monitoring Suppl (D-Care Glucometer) w/Device kit (10 sources) Start: 09-18-2024 End: 10-15-2024 Blood Glucose Monitoring Suppl (D-Care Glucometer) w/Device kit Indications: Gestational diabetes mellitus (GDM), antepartum, gestational diabetes method of control unspecified , Elevated glucose tolerance test 1 kit Daily Use four times daily to check FSBS. In the morning prior to breakfast & 1 hour after each meal for a total of 4times daily. 1 kit 09/18/2024 10/15/2024 Discontinued Start: 09-18-2024 End: 09-18-2025 Blood Glucose Monitoring Sup pl (D-Care Glucometer) w/Device kit Indications: Gestational diabetes mellitus (GDM), antepartum, gestational diabetes method of control unspecified , Elevated glucose tolerance test 1 kit Daily Use four times daily to check FSBS. In the morning prior to breakfast & 1 hour after each meal for a total of 4times daily. 1 kit 09/18/2024 09/18/2025 Active diclofenac sodium 75 mg delayed release oral [...] 1 tablet by efrain th twice daily. isopropyl alcohol 0.7 ml/ml medicated pad (10 sources) Start: 09-18-2024 End: 10-15-2024 Alcohol Swabs (Alcohol Prep Pad) 70 % pads Indications: Gestational diabetes mellitus (GDM), antepartum, gestational diabetes method of control unspecified , Elevated glucose tolerance test Apply 1 Pad topically Daily Use four times daily to check FSBS. 150 each 3 09/18/2024 10/15/2024 Discontinued magnesium oxide 400 mg oral tablet (15 [...] 30 Refills: 6 Ordered: 13-Jun-2023 [place] APRN-ENGLISH DIVISION CHAIR, Tabatha Start : 13-Jun-2023 Active methotrexate 2.5 mg [...] Active Start: 07-10-2022 take 0.5 tablet by [facility] three times daily Midodrine HCl - [...] [Unspecified right bundle-branch block] Onset: 2 Chronic Diabetes mellitus without complication (2 sources) Abnormal glucose tolerance test; Translations: [Other abnormal glucose] 09-18-2024 Episodic Diabetes or abnormal glucose tolerance complicating ; childbirth; or the puerperium (9 sources) Gestational diabetes mellitus; Translations: [Gestational diabetes [...] second trimester] Onset: 4 07-03-2024 Episodic Other upper respiratory infections (2 sources) [...] of ] 09-18-2024 Episodic Residual codes; unclassified (9 sources) Gestation period, 29 weeks; Translations: [29 [...] Range Facility Urinalysis macro (dipstick) panel (U)on 10-15-2024 Bilirubin, UA Negative Negative - 4(70) +++ mg/dL [facility] Blood, UA Negative Negative - 50 Vasu/mcL [facility] Clarity, UA Clear [facility] Color, UA Yellow [facility] Glucose, UA Positive Negative - 2000(110) ++++ mg/dL [facility] Comment on above: 500 Interpretation and review of laboratory results Abnormal [facility] Ketones, UA Negative Negative - 160(16) ++++ mg/dL [facility] Leukocytes, UA Positive Negative - 500+++ Conrad/mcL [facility] Comment on above: small Nitrite, UA Negative Negative - Positive [facility] pH, UA 6 5 - 9 [facility] Protein, UA Trace Negative - 2000(20) ++++ mg/dL [facility] Spec Grav, UA 1.02 1 - 1.03 [facility] Urobilinogen, UA 0.2 0.2 - 12 mg/dL [facility] Urinalysis macro (dipstick) panel (U)on 10-02-2024 Bilirubin, UA Negative Negative - 4(70) +++ mg/dL [facility] Blood, UA Negative Negative - 50 Vasu/mcL [facility] Clarity, UA Clear [facility] Color, UA Yellow [facility] Glucose, UA Negative Negative - 1999(110) ++++ mg/dL [facility] Interpretation and review of laboratory results Abnormal [facility] Ketones, UA Positive Negative - 160(16) ++++ mg/dL [facility] Comment on above: 40 Leukocytes, UA Trace Negative - 500+++ Conrad/mcL [facility] Nitrite, UA Negative Negative - Positive [facility] pH, UA 6 5 - 9 [facility] Protein, UA Positive Negative - 1999(20) ++++ mg/dL [facility] Comment on above: 30 Spec Grav, UA 1.03 1 - 1.03 [facility] Urobilinogen, UA 0.2 0.2 - 12 mg/dL [facility] TBH UA (CLEAN/CATCH) SPREAD CUTTER/YOUSIF RO IF IND.on 09-25-2024 BILIRUBIN URINE Negative NEGATIVE [facility] BLOOD URINE Negative NEGATIVE [facility] Clarity (U) CLEAR CLEAR [facility] Color (U) LT. YELLOW YELLOW [facility] GLUCOSE URINE UA 250 mg/dL Abnormal NEGATIVE [facility] Interpretation and review of laboratory results Abnormal [facility] Ketones Ql (U) Negative NEGATIVE mg/dL [facility] Leukocyte esterase Test strip Ql (U) SMALL Abnormal NEGATIVE [facility] NITRITE URINE Negative NEGATIVE [facility] pH (U) 6.0 [pH] 5.0 - 9.0 [facility] PROTEIN URINE Negative NEG/TRACE mg/dL [facility] SPECIFIC GRAVITY URINE 1.020 1.005 - 1.025 [facility] URINE MICROSCOPIC INDICATED YES [facility] UROBILINOGEN URINE 0.2 EU/dL 0.2 - 1.0 EU/dL [facility] Urinalysis macro (dipstick) panel (U)on 09-18-2024 Bilirubin, UA Negative Negative - 4(70) +++ mg/dL [facility] Blood, UA Negative Negative - 50 Vasu/mcL [facility] Clarity, UA Clear [facility] Color, UA Yellow [facility] Glucose, UA Positive Negative - 1999(110) ++++ mg/dL [facility] Comment on above: 100 Interpretation and review of laboratory results Abnormal [facility] Ketones, UA Negative Negative - 160(16) ++++ mg/dL [facility] Leukocytes, UA Positive Negative - 500+++ Conrad/mcL [facility] Comment on above: small Nitrite, UA Negative Negative - Positive [facility] pH, UA 7 5 - 9 [facility] Protein, UA Trace Negative - 2000(20) ++++ mg/dL [facility] Spec Grav, UA 1.02 1 - 1.03 [facility] Urobilinogen, UA 0.2 0.2 - 12 mg/dL [facility] Urinalysis macro (dipstick) panel (U)on 09-03-2024 Bilirubin, UA Negative Negative - 4(70) +++ mg/dL [facility] Blood, UA Negative Negative - 50 Vasu/mcL [facility] Clarity, UA Clear [facility] Color, UA Yellow [facility] Glucose, UA Many Negative - 1999(110) ++++ mg/dL [facility] Interpretation and review of laboratory results Abnormal [facility] Ketones, UA Positive Negative - 160(16) ++++ mg/dL [facility] Leukocytes, UA Positive Negative - 500+++ Conrad/mcL [facility] Nitrite, UA Negative Negative - Positive [facility] pH, UA 6.5 5 - 9 [facility] Protein, UA Moderate Negative - 2000(20) ++++ mg/dL [facility] Spec Grav, UA 1.025 1 - 1.03 [facility] Urobilinogen, UA 0.2 0.2 - 12 mg/dL [facility] GLUCOSE TOLERANCE 3 HOURon 1 11-02-2023 GLUCOSE TOLERANCE 3 HOUR High mg/dL [facility] Comment on above: GLU FAST 86 (<95) Co l: 09/01/24 0818 GLU 1HR 162 (<180) Col: 09/01/24 0919 GLU 2HR 156H (<155) Col: 09/01/24 1019 GLU 3HR 110 (<140) Col: 09/01/24 1119 Interpretation and review of laboratory results Abnormal [facility] ALL CBC WITH AUTO DIFFon BASOPHILS ABSOLUTE AUTO 0 [facility] Basophils/100 WBC (Bld) 0.2 % 0.2 - 2.0 % [facility] Eosinophils/100 WBC (Bld) 0.7 % Low 0.9 - 7.0 % [facility] Erythrocyte distribution width (RBC) [Ratio] 13.6 % 11.0 - 15.0 % [facility] Hematocrit (Bld) [Volume fraction] 32.9 % Low 36.0 - 48.0 % [facility] Hemoglobin (Bld) [Mass/Vol] 11.1 g/dL Low 12.0 - 16.0 g/dL [facility] IMMATURE GRANULOCYTES ABS AUTO 0.11 High [facility] Immature granulocytes/100 WBC (Bld) 1.1 % High 0.0 - 0.5 % [facility] Interpretation and review of laboratory results Abnormal [facility] LYMPHOCYTES ABSOLUTE AUTO 1.3 [facility] Lymphocytes/100 WBC (Bld) 13 % Low 20.5 - 60.0 % [facility] MCH (RBC) [Entitic mass] 29.6 pg 26.7 - 34.0 pg [facility] MCHC (RBC) [Mass/Vol] 33.7 g/dL 29.9 - 35.2 g/dL [facility] MCV (RBC) [Entitic vol] 87.7 fL 81.0 - 99.0 fL [facility] MONOCYTES ABSOLUTE AUTO 0.6 [facility] Monocytes/100 WBC (Bld) 5.5 % 1.7 - 12.0 % [facility] NEUTROPHILS ABSOLUTE AUTO 7.9 High [facility] Neutrophils/100 WBC (Bld) 79.5 % High 43.0 - 75.0 % [facility] Platelet mean volume (Bld) [Entitic vol] 10.3 fL 9.5 - 13.5 fL [facility] TBH EO # 0.1 [facility] PLT 178 [facility] TB RBC 3.75 Low [facility] WBC 9.9 [facility] IGP,APTIMA HPV,AGE GDLNon AGE GDLN ACOG TESTING Note . [facility] Comment on above: TESTS RESULT FLAG UN ITS REF RANGE LAB Clinician Provided Cytology Information Source.............Cervix No. of containers..01 ThinPrep Vial Age Algo ACOG Maureen... FLAG LEGEND: L-Low Normal,H-High Normal,LL-Alert Low,HH-Alert High <-Panic Low,>-Panic High,A-Abnormal,AA-Critical Abnormal Performed at: 01 =G [facility] [id number] Toya Wilson MD, IGP, RFX APTIMA HPV ASCU Note . [facility] Comment on above: TESTS RESULT FLAG UN ITS REF RANGE LAB DIAGNOSIS: 02 NEGATIVE FOR INTRAEPITHELIAL LESION OR MALIGNANCY. Specimen adequacy: 02 Satisfactory for evaluation. No endocervical component is identified. Performed by: 02 Imelda Miranda Ict Trainer ([facility]) . 02 Note: Note 02 The Pap [...] <-Panic Low,>-Panic High,A-Abnormal,AA-Critical Abnormal Performed at: [address] [id number] Toya Wilson MD, Performed at: = - [address] [id number] Lead Java Software Engineer: Toya Wilson MD, Phone: [phone] Performed at: [address] [id number] Lead Java Software Engineer: Toya Wilson MD, Phone: [phone] SPATULA-ALONE CERVIX [facility] AFP, SERUM, OPEN SPINA BIFID Aon 08-13-2024 AFP MOM 2.24 . [facility] AFP VALUE 103.1 ng/mL . [facility] COMMENT: Comment . [facility] Comment on above: Joyce Reina , Ph.D., [facility] Director References: Available Upon Request. Multiples Of Median Cutoffs For AFP Elevations [place] 2.5 Black 2.8 IDD 2.0 Twins 4.5 Abbreviation Definitions IDD - Insulin Dep Diabetes OSBR - Open Spina Bifida Risk For further inquiries contact [facility] at [phone]. This test was developed and its performance characteristics determined by [facility]. It has not been cleared or approved by the Food and Drug Administration. Performed at: [place] [address] [place], [place] [id number] Lead Java Software Engineer: Angel Regan [facility], Phone: [phone] GEST. AGE ON COLLECTION DATE 20.3 . weeks [facility] GESTAT. AGE BASED ON LMP . [facility] Comment on above: Recalculations are n ot recommended when gestational dating by LMP and ultrasound are within 10 days. INSULIN DEP DIABETES No . [facility] INTERPRETATION Comment . [facility] Comment on above: Interpretation: Scre en [...] Customer Services to discuss available options. The [employer] recommends amniocentesis be offered to women age 35 and older. [age] [facility] MULTIPLE GESTATION Twins . [facility] OSBR RISK 1 IN 1081 . [facility] RACE . [facility] RESULTS Report . [facility] TEST RESULTS: Negative . [facility] WEIGHT 219 . lbs [facility] N N LMP [id number] 3 19 N 2 Y 219 N N N N N White/ [facility] US for pregnancyon 4 THIS EXAM WAS PERFOR MED AT [facility] Coding ====== Procedures 64245: Comprehensive Detailed Anatomy Ultrasound 50993: Comprehensive Detailed Anatomy Ultrasound- Additional Fetus 93314: Transvaginal Ultrasound (OB) Indication ======== Di-Di twin [...] 0 lb 13 oz EFW by [facility] ([id number]) EFW discordance 10.9 % Head / Face / Neck Biometry: Cephalic index 0.81 73% [facility] 6.4 mm CM 4.4 mm 26% Nicolaides [...] 0 lb 14 oz EFW by [facility] ([id number]-FL) EFW discordance 10.9 % Head / Face / Neck Biometry: Cephalic index 0.71 1% [facility] 6.8 mm CM 4.3 mm 23% [facility] [...] Heart / Th (more content not included)... [facility] Radiology, Radiologi MD billy - 08/13/2024 THIS EXAM WAS PERFORMED AT [facility] Coding ====== Procedures 11702: Comprehensive Detailed Anatomy Ultrasound 71799: Comprehensive Detailed Anatomy Ultrasound- Additional Fetus 19773: Transvaginal Ultrasound (OB) Indication ======== Di-Di twin [...] 0 lb 13 oz EFW by [facility]lock (LUR-US-VY-FL) EFW discordance 10.9 % Head / Face / Neck Biometry: Cephalic index 0.81 73% [facility] 6.4 mm CM 4.4 mm 26% Nicolaides [...] 0 lb 14 oz EFW by [facility] (APX-[id number]-FL) EFW discordance 10.9 % Head / Face / Neck Biometry: Cephalic index 0.71 1% [facility] 6.8 mm CM 4.3 mm 23% Nicolaides [...] Heart / Thorax 4-chamber view. 3-vessel view. 2-yngxju-gyxpdgc view. Interventricular septum. Diaphragm. Abdomen Right renal [...] Nuchal fold. F (more content not included)... [facility] Radiology Study observation (narrative) [facility] US for pregnancyOrdered By: Radiologist Radiology on 08-13-2024 [facility] Work Phone: RECURRENT VAGINITIS (HTRX)on 08-07-2024 ATOPOBIUM VAGINAE 29.356 Abnormal [facility] ATOPOBIUM VAGINAE Detected Abnormal [facility] BVAB 2,3 (BACTERIAL VAGINOSIS ASSOCIATED BACTERIA 2, 3); MOBILUNCUS SPP 0 [facility] BVAB 2,3 (BACTERIAL VAGINOSIS ASSOCIATED BACTERIA 2, 3); MOBILUNCUS SPP Not detected [facility] SANTHOSH ALBICANS, PARAPSILOSIS, TROPICALIS 0 [facility] SANTHOSH ALBICANS, PARAPSILOSIS, TROPICALIS Not detected [facility] SANTHOSH GLABRATA 0 [facility] SANTHOSH GLABRATA Not detected [facility] SANTHOSH KRUSEI 0 [facility] SANTHOSH KRUSEI Not detected [facility] CHLAMYDIA TRACHOMATIS 0 [facility] CHLAMYDIA TRACHOMATIS Not detected N [facility] GARDNERELLA VAGINALIS 0 [facility] GARDNERELLA VAGINALIS Not detected N [facility] Interpretation and review of laboratory results Abnormal [facility] MEGASPHAERA (TYPES 1, 2) 0 [facility] MEGASPHAERA (TYPES 1, 2) Not detected [facility] MYCOPLASMA GENITALIUM 0 [facility] S [facility] MYCOPLASMA GENITALIUM Not detected N [facility] NEISSERIA GONORRHOEAE 0 [facility] NEISSERIA GONORRHOEAE Not detected N [facility] TRICHOMONAS VAGINALIS 0 [facility] S [facility] TRICHOMONAS VAGINALIS Not detected N [facility] Urinalysis macro (dipstick) panel (U)on 08-05-2024 Bilirubin, UA Negative Negative - 4(70) +++ mg/dL [facility] Blood, UA Negative Negative - 50 Vasu/mcL [facility] Clarity, UA Clear [facility] Color, UA Yellow [facility] Glucose, UA Negative Negative - 1999(110) ++++ mg/dL [facility] Interpretation and review of laboratory results Normal [facility] Ketones, UA Negative Negative - 160(16) ++++ mg/dL [facility] Leukocytes, UA Negative Negative - 500+++ Conrad/mcL [facility] Nitrite, UA Negative Negative - Positive [facility] pH, UA 5.5 5 - 9 [facility] Protein, UA Negative Negative - 1999(20) ++++ mg/dL [facility] Spec Grav, UA 1.02 1 - 1.03 [facility] Urobilinogen, UA 1.0 0.2 - 12 mg/dL [facility] Urinalysis macro (dipstick) panel (U)on 07-03-2024 Bilirubin, UA Negative Negative - 4(70) +++ mg/dL [facility] Blood, UA Negative Negative - 50 Vasu/mcL [facility] Clarity, UA Clear [facility] Color, UA Yellow [facility] Glucose, UA Positive Negative - 1999(110) ++++ mg/dL [facility] Comment on above: 500 Interpretation and review of laboratory results Abnormal [facility] Ketones, UA Negative Negative - 160(16) ++++ mg/dL [facility] Leukocytes, UA Negative Negative - 500+++ Conrad/mcL [facility] Nitrite, UA Negative Negative - Positive [facility] pH, UA 6.0 5 - 9 [facility] Protein, UA Negative Negative - 1999(20) ++++ mg/dL [facility] Spec Grav, UA 1.015 1 - 1.03 [facility] Urobilinogen, UA 0.2 0.2 - 12 mg/dL [facility] Urinalysis macro (dipstick) panel (U)Ordered By: Ibis Sandoval on 06-04-2024 Bilirubin, UA Negative Negative - 4(70) +++ mg/dL [facility] Blood, UA Positive Negative - 50 Vasu/mcL [facility] [facility] Comment on above: trace-intact Clarity, UA Clear [facility] Color, UA Yellow [facility] Glucose, UA Negative Negative - 1999(110) ++++ mg/dL [facility] Interpretation and review of laboratory results Abnormal [facility] Ketones, UA Negative Negative - 160(16) ++++ mg/dL [facility] Leukocytes, UA Trace Negative - 500+++ Conrad/mcL [facility] Nitrite, UA Negative Negative - Positive [facility] pH, UA 5.5 5 - 9 [facility] Protein, UA Negative Negative - 1999(20) ++++ mg/dL [facility] Spec Grav, UA 1.005 1 - 1.03 [facility] Urobilinogen, UA 0.2 0.2 - 12 mg/dL [facility] ALL CBC WITH AUTO DIFFon BASOPHILS ABSOLUTE AUTO 0.0 [facility] Basophils/100 WBC (Bld) 0.5 % 0.2 - 2.0 % [facility] Eosinophils/100 WBC (Bld) 0.5 % Low 0.9 - 7.0 % [facility] Erythrocyte distribution width (RBC) [Ratio] 11.9 % 11.0 - 15.0 % [facility] IMMATURE GRANULOCYTES ABS AUTO 0.03 [facility] Immature granulocytes/100 WBC (Bld) 0.4 % 0.0 - 0.5 % [facility] Interpretation and review of laboratory results Abnormal [facility] LYMPHOCYTES ABSOLUTE AUTO 1.8 [facility] Lymphocytes/100 WBC (Bld) 23.3 % 20.5 - 60.0 % [facility] MCH (RBC) [Entitic mass] 29.7 pg 26.7 - 34.0 pg [facility] MCHC (RBC) [Mass/Vol] 34.9 g/dL 29.9 - 35.2 g/dL [facility] MCV (RBC) [Entitic vol] 85.1 fL 81.0 - 99.0 fL [facility] MONOCYTES ABSOLUTE AUTO 0.5 [facility] Monocytes/100 WBC (Bld) 6.3 % 1.7 - 12.0 % [facility] NEUTROPHILS ABSOLUTE AUTO 5.4 [facility] Neutrophils/100 WBC (Bld) 69.0 % 43.0 - 75.0 % [facility] Platelet mean volume (Bld) [Entitic vol] 10.3 fL 9.5 - 13.5 fL [facility] EO # 0.0 [facility] PLT 206 [facility] RBC 4.55 [facility] WBC 7.8 [facility] - Hematology and Cell countson 05-24-2024 Hematocrit (Bld) [Volume fraction] 38.7 % [facility] Hemoglobin (Bld) [Mass/Vol] 13.5 g/dL [facility] No Panel Informationon 05-24 [facility] HCG ( test) Ql (U)o n 05-23-2024 Interpretation and review of laboratory results Abnormal [facility] Preg Test, Ur Positive [facility] Urinalysis macro (dipstick) panel (U)on 05-23-2024 Bilirubin, UA Negative Negative - 4(70) +++ mg/dL [facility] Blood, UA Negative Negative - 50 Vasu/mcL [facility] Clarity, UA Clear [facility] Color, UA Yellow [facility] Glucose, UA Negative Negative - 1999(110) ++++ mg/dL [facility] Interpretation and review of laboratory results Normal [facility] Ketones, UA Negative Negative - 160(16) ++++ mg/dL [facility] Leukocytes, UA Negative Negative - 500+++ Conrad/mcL [facility] Nitrite, UA Negative Negative - Positive [facility] pH, UA 7.0 5 - 9 [facility] Protein, UA Negative Negative - 1999(20) ++++ mg/dL [facility] Spec Grav, UA 1.025 1 - 1.03 [facility] Urobilinogen, UA 1.0 0.2 - 12 mg/dL [facility] CHEMISTRYOrdered By: SYSTEM SYSTEM on 04-12-2024 Progesterone [...] Progesterone Lvl 31.70 ng/mL Invalid Interpretation Code [facility] Comment on above: Result Comment: 'F N ON FOLLICULAR = 0.10 - 0.60' 'LUTEAL = 3.00 - 17.5' 'MIDLUTEAL = 3.30 - 18.6' 'POST-MENOPAUSE = 0.10 - 0.40' '-FIRST TRIMESTER = 8.30 - 66.5' 'SECOND TRIMESTER = 18.9 - 66.1' 'THIRD TRIMESTER = 35.8 - 312.4' 'MALES = 0.14 - 2.06' Performed By: #### 2 [id number] #### [facility] [address] [place] [address] CHEMISTRYOrdered By: SYSTEM SYSTEM on 03-14-2024 Progesterone [...] for Treatmenton 02-23 Consent for Treatment [id number]#[id number] Normal [facility] Physician Orderon 03-14-2024 Physician Order [id number]#[id number] Normal [facility] Progesteroneon 03-14-2024 Progesterone Lvl 16.15 ng/mL Invalid Interpretation Code [facility] Comment on above: Result Comment: 'F N ON FOLLICULAR = 0.10 - 0.60' 'LUTEAL = 3.00 - 17.5' 'MIDLUTEAL = 3.30 - 18.6' 'POST-MENOPAUSE = 0.10 - 0.40' '-FIRST TRIMESTER = 8.30 - 66.5' 'SECOND TRIMESTER = 18.9 - 66.1' 'THIRD TRIMESTER = 35.8 - 312.4' 'MALES = 0.14 - 2.06' Performed By: #### 2 [id number] #### [facility] [address] [place] [address] Ambulatory Visit Summaryon 0 12-11-2023 Ambulatory Visit [...] 11:20 AM EDT With: Krista Daley Where: [facility] [place] Normal [facility] Family Medicine Office/Clini c Noteon 12-11-2023 Family Medicine Office/Clinic Note HPI Staff Madyson is a 23 year old female presenting to [facility] care Establish Care: History: Any previous diagnosis: POTS (11/30/23) History of seeing any specialist: Jyoti Dickey [facility]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 BMI 33.0-33.9,adult (Z68.33: Body mass index [BMI] 33.0-33.9, adult) BMI education complete Ordered: omeprazole, 40 mg = 1 cap(s), Oral, Daily, # 30 cap(s), Refills(s) 1, Pharmacy: [facility], 168.3, cm, 12/11/23 13:07:00 EDT, Height/Length Dosing, 93.6, kg, 12/11/23 13:07:00 EDT, Weight Dosing 3. Class 1 obesity due to excess calories in adult (E66.09: Other obesity due to excess calories) see above Ordered: omeprazole, 40 mg = 1 cap(s), Oral, Daily, # 30 cap(s), Refills(s) 1, Pharmacy: [facility], 168.3, cm, 12/11/23 13:07:00 EDT, Height/Length Dosing, 93.6, kg, 12/11/23 13:07:00 EDT, Weight Dosing 4. Nonsmoker (Z78.9: Other specified health status) continue not smoking Ordered: omeprazole, 40 mg = 1 cap(s), Oral, Daily, # 30 cap(s), Refills(s) 1, Pharmacy: [facility], 168.3, cm, 12/11/23 13:07:00 EDT, Height/Length [...] 03/05/2002 Recorded (more content not included)... Normal [facility] Comment on above: Result Comment: Elec tronically Signed By: Krista Daley\\.br\\Date and Time Signed: 12/11/23 13:32 EDT CNOVon 11-30-2023 CNOV Office Visit (NENMMN ) ----- MADYSON MAI ([id number]) 2 F Date Time Provider Department 11/30/23 10:00 AM JYOTI DICKEY During your visit today, we recorded the following information about you: Pulse Blood pressure Weight Height 84/minute 118/79 93 kg 1.651 m Jyoti Dickey PA-C 11/30/2023 11:14 AM Signed [facility] Neuromuscular Medicine New Patient Evaluation Madysonlady Mai is a 22 year old right [...] experienced LOC while walking up the stairs. [place] prodromal symptoms including lightheadedness and tunnel vision. [...] (more content not included)... Normal [facility] ECHOon 11-12-2023 Echocardiography Echocardiography Rep ort: Transthoracic Echo [facility] A17 Date of service: 11/12/2023 1:08:10 PM BRUSH Ordering physician: AURORA SANTIAGO Indication: Initial evaluation [...] * * * Final * * * [employer] [facility] : [id number] Normal [facility] CNOVon 10-10-2023 CNOV Office Visit (NEADMN ) ----- MADYSON MAI ([id number]) 2 F Date Time Provider Department 10/10/23 2:00 PM AURORA SANTIAGO NEYVONNE During your visit today, we recorded the following information about you: Pulse Blood pressure Weight Height 108/minute 119/85 93 kg 1.651 m Aurora Santiago PA-C 10/10/2023 4:33 PM Signed [facility] for Neuromuscular Medicine New Patient Evaluation [...] (more content not included)... Normal [facility] Quantiferon-TB Plus (Client Incubated)on 07-26-2023 Gamma interferon background IA Qn (Bld) 0.01 International_Unit/mL Invalid Interpretation Code [facility] Comment on above: Performed By: #### 1 [id number], [id number], [id number], [id number] #### [facility] [address] [place] [address] M. tuberculosis stim IFN-g by CD4+ CD8+ T-cells Qn (Bld) 0.30 International_Unit/mL Invalid Interpretation Code [facility] Comment on above: Performed By: #### 1 [id number], [id number] #### [facility] [address] [place] [address] M. tuberculosis stim IFN-g by CD4+ T-cells Qn (Bld) 0.23 International_Unit/mL Invalid Interpretation Code [facility] Comment on above: Performed By: #### 1 [id number], [id number] #### [facility] [address] [place] [address] M. tuberculosis stim IFN-g Ql (Bld) [Interp] Negative Invalid Interpretation Code Negative [facility] Comment on above: Result Comment: No r [...] interferon gamma. Chemiluminescence immunoassay methodology Performed at: [facility] [id number] PhD Rubio Vinson Performed By: #### 1 [id number], [id number], [id number], [id number] #### [facility] [address] [place] [address] Mitogen stimulated gamma interferon Qn (Bld) >10.00 Invalid Interpretation Code [facility] Comment on above: Performed By: #### 1 [id number], [id number], [id number], [id number] #### [facility] [address] [place] [address] Service comment (Unsp spec) [Interp] Comment Invalid Interpretation Code [facility] Comment on above: Result Comment: Link [email or web address] [...] for the test. Performed By: #### 1 [id number], [id number], [id number], [id number] #### [facility] [address] [place] [address] Hep Bs Abon 07-25-2023 HBV surface Ab Ql (S) Non-Reactive Invalid Interpretation Code [facility] Comment on above: Result Comment: Non Reactive: Inconsistent with immunity, less than 10 mIU/mL Reactive: Consistent with immunity, greater than 9.9 mIU/mL Performed at: [address] [id number] PhD Rubio Vinson Performed By: #### 1 [id number], [id number], [id number], [id number] #### [facility] [address] [place] [address] Measles/Mumps/Rubella Immuni tyon 07-25-2023 MeV IgG IA Qn (S) 34.3 A unit/mL Invalid Interpretation Code Immune >16.4 [facility] Comment on above: Result Comment: Nega tive <13.5 Equivocal 13.5 - 16.4 Positive >16.4 Presence of antibodies to Rubeola is presumptive evidence of immunity except when acute infection is suspected. Performed By: #### 1 [id number], [id number], [id number] #### [facility] [address] [place] [address] MuV IgG IA Qn (S) <9.0 Low Immune >10.9 [facility] Comment on above: Result Comment: Nega tive <9.0 Equivocal 9.0 - 10.9 Positive >10.9 A positive result generally indicates past exposure to Mumps virus or previous vaccination. Performed at: [address] [id number] PhD Rubio Vinson Performed By: #### 1 [id number], [id number], [id number], [id number] #### [facility] [address] [place] [address] Rubella virus IgG Qn (S) 1.53 [IU]/mL Invalid Interpretation Code Immune >0.99 [facility] Comment on above: Result Comment: Non- immune <0.90 Equivocal 0.90 - 0.99 Immune >0.99 Performed By: #### 1 [id number], [id number], [id number], [id number] #### [facility] [address] [place] [address] Varic IgGon 07-25-2023 VZV IgG IA Qn (S) 475 Invalid Interpretation Code Immune >165 [facility] Comment on above: Result Comment: Nega tive <135 Equivocal 135 - 165 Positive >165 A positive result generally indicates exposure to the pathogen or administration of specific immunoglobulins, but it is not indication of active infection or stage of disease. Performed at: [address] [id number] PhD Rubio Vinson Performed By: #### 1 [id number], [id number], [id number], [id number] #### [facility] [address] [place] [address] CNOVon 07-10-2023 CNOV Office Visit (ORFWHP ) ----- MADYSON SCHMID ([id number]) 2 F Date Time Provider Department 07/10/23 9:40 AM JOSE ARMANDO GREYOsman During your visit today, we recorded the following information about you: Jose Armando Grey, 07/10/2023 10:08 AM Signed [facility] Office Visit Documentation Note [facility] Sports Medicine Orthopaedic and Rheumatologic [place] HISTORY OF PRESENT ILLNESS (HPI) CHIEF COMPLAINT / REASON FOR VISIT SERVICE DATE: July 10, 2023 PCP: No primary care provider on file. Madyson Schmid is here today at request of Dr. Jose Armando Schmid specifically for consultation of my opinion in regards to the chief complaint listed below. Correspondence will be shared today via the [employer] electronic health record or through regular mail, [...] She need to consider PT or personal insurance advisor. Reaction knee brace Consider [place] toradol, did discuss orthobiologics Follow up: Films prior to visit: Written instructions (see patient instructions) and verbal health education given to patient. Patient verbalizes understanding and agrees with the treatment plan. Jose Armando Grey D.O. [facility] Orthopaedic and Rheumatologic Medical Coding Manager, [facility] [facility] AND [employer] Program Team Physician, [facility] [employer] Consulting Physician, [place] Martin Nagel, Rope Coiling Machine Operator [phone] Referring Provider: SELF [200] Allergies As of [...] Level of (more content not included)... [facility] Tobacco Screening.on 023 Adult depression screening assessment No [facility] 600 DO Work Phone: Tobacco use status CPHS b) No [facility] 600 DO Work Phone: Activated partial thrombopla stin time (aPTT) in platelet poor plasma by coagulation aOrdered By: Haris Martino on 06-08-2023 aPTT Coag (PPP) [Time] 28.9 s 25.1-36.5 [facility] Comment on above: A hematocrit value g reater than 55% may lead to inaccurate results in coagulation testing. Patients having hematocrit values >55% require a special collection tube for coagulation studies. Please contact the laboratory at [phone] for redraw instructions. Alanine aminotransferase [En zymatic activity/volume] in Serum or PlasmaOrdered By: Haris Martino on 06-08-2023 ALT [Catalytic activity/Vol] 42 U/L 7-52 [facility] Albumin [Mass/volume] in Ser um or Plasma by Bromocresol green (BCG) dye binding methoOrdered By: Haris Martino on 06-08-2023 Albumin BCG dye [Mass/Vol] 4.6 g/dL 3.5-5.7 [facility] Alkaline phosphatase [Enzyma tic activity/volume] in Serum or PlasmaOrdered By: Haris Martino on 06-08-2023 ALP [Catalytic activity/Vol] 78 U/L 34-104 [facility] Aspartate aminotransferase [ Enzymatic activity/volume] in Serum or PlasmaOrdered By: Haris Martino on 06-08-2023 AST [Catalytic activity/Vol] 22 U/L 13-39 [facility] Automated erythrocytes count in urine sediment (number/area)Ordered By: Haris Martino on 06-08-2023 RBC Auto (Urine sed) [#/Area] 5-9 [HPF] 0-4 [facility] Automated leukocytes count i n urine sediment (number/area)Ordered By: Haris Martino on 06-08-2023 WBC Auto (Urine sed) [#/Area] 3-4 [HPF] 0-4 [facility] Basophils Auto (Bld) [#/Vol] Ordered By: Haris Martino on 06-08-2023 Basophils (Bld) [#/Vol] 0.1 10*3/uL 0.0-0.2 [facility] Basophils/100 WBC Auto (Bld) Ordered By: Haris Martino on 06-08-2023 Basophils/100 WBC (Bld) 1.0 % . [facility] Bilirubin Test strip Ql (U)O rdered By: Haris Martino on 06-08-2023 Bilirubin Ql (U) Negative Negative [facility] Bilirubin.direct [Mass/volum e] in Serum or PlasmaOrdered By: Hairs Martino on 06-08-2023 Bilirubin.direct [Mass/Vol] 0.10 mg/dL 0.03-0.18 [facility] Bilirubin.total [Mass/volume ] in Serum or PlasmaOrdered By: Haris Martino on 06-08-2023 Bilirubin [Mass/Vol] 0.4 mg/dL 0.3-1.[address] [facility] Calcium [Mass/volume] in Ser um or PlasmaOrdered By: Haris Martino on 06-08-2023 Calcium [Mass/Vol] 9.4 mg/dL 8.6-10.3 [facility] Carbon dioxide, total [Moles /volume] in Serum or PlasmaOrdered By: Haris Martino on 06-08-2023 CO2 [Moles/Vol] 29.3 mmol/L 21.0-31.0 [facility] Chloride [Moles/volume] in S colin or PlasmaOrdered By: Haris Martino on 06-08-2023 Chloride [Moles/Vol] 104 mmol/L 98-[address] [facility] Color Auto (U)Ordered By: Terrell red Salena on 06-08-2023 Color (U) Yellow Yellow [facility] Creatine kinase [Enzymatic a ctivity/volume] in Serum or PlasmaOrdered By: Haris Martino on 06-08-2023 CK [Catalytic activity/Vol] 55 U/L 30-223 [facility] Creatinine [Mass/volume] in Serum or PlasmaOrdered By: Haris Martino on 06-08-2023 Creatinine [Mass/Vol] 0.64 mg/dL 0.60-1.20 [facility] Eosinophils Auto (Bld) [#/Vo l]Ordered By: Haris Martino on 06-08-2023 Eosinophils (Bld) [#/Vol] 0.1 10*3/uL 0.0-0.45 [facility] Eosinophils/100 WBC Auto (Bl d)Ordered By: Haris Martino on 06-08-2023 Eosinophils/100 WBC (Bld) 0.8 % . [facility] Erythrocyte distribution wid th Auto (RBC) [Ratio]Ordered By: Haris Martino on 06-08-2023 Erythrocyte distribution width (RBC) [Ratio] 12.9 % 11.9-15.3 [facility] Fibrin D-dimer [Presence] in Platelet poor plasma by Latex agglutinationOrdered By: Haris Martino on 06-08-2023 Fibrin D-dimer LA Ql (PPP) < 200 ng/mL 0-243 [facility] Comment on above: The reference range [...] coagulation studies. Please contact the laboratory at [phone] for redraw instructions. Globulin Calc (S) [Mass/Vol] Ordered By: Haris Martino on 06-08-2023 Globulin (S) [Mass/Vol] 2.9 g/dL [facility] Glucose [Mass/volume] in Ser um or PlasmaOrdered By: Haris Martino on 06-08-2023 Glucose [Mass/Vol] 79 mg/dL 70-100 [facility] Comment on above: ADA recommended refe rence rangeRandom Glucose Reference Range is dependent on time and content of last meal. Glucose of more than 200 mg/dL in a nonstressed, ambulatory subject supports the diagnosis of Diabetes Mellitus. HCG ( test) IA.rapi d Ql (U)Ordered By: Haris Martino on 06-08-2023 HCG ( test) Ql (U) Negative [facility] Hematocrit Auto (Bld) [Volum e fraction]Ordered By: Haris Martino on 06-08-2023 Hematocrit (Bld) [Volume fraction] 42.4 % 34.0-46.4 [facility] Hemoglobin [Mass/volume] in BloodOrdered By: Haris Martino on 06-08-2023 Hemoglobin (Bld) [Mass/Vol] 14.5 g/dL 11.8-15.4 [facility] INR in Platelet poor plasma by Coagulation assayOrdered By: Haris Martino on 06-08-2023 INR Coag (PPP) [Relative time] 1.0 {INR} [facility] Comment on above: INR Therapeutic Rang [...] on 06-08-2023 Ketones (U) [Mass/Vol] Negative Negative [facility] Laboratory - UrinalysisOrder ed By: Haris Martino on 06-08-2023 Hyaline casts LM Ql (Urine sed) 0-8 [LPF] 0-8 [facility] Leukocytes [#/volume] correc matt for nucleated erythrocytes in Blood by Automated counOrdered By: Haris Martino on 06-08-2023 WBC corrected for nucl RBC Auto (Bld) [#/Vol] 8.3 10*3/uL 3.8-11.6 [facility] Lymphocytes Auto (Bld) [#/Vo l]Ordered By: Haris Martino on 06-08-2023 Lymphocytes (Bld) [#/Vol] 3.0 10*3/uL 1.00-4.8 [facility] Lymphocytes/100 WBC Auto (Bl d)Ordered By: Haris Martino on 06-08-2023 Lymphocytes/100 WBC (Bld) 36.0 % . [facility] MCH Auto (RBC) [Entitic mass ]Ordered By: Haris Martino on 06-08-2023 MCH (RBC) [Entitic mass] 29.4 pg 24.7-34.3 [facility] MCHC Auto (RBC) [Mass/Vol]Or dered By: Haris Martino on 06-08-2023 MCHC (RBC) [Mass/Vol] 34.2 g/dL 32.0-35.0 [facility] MCV Auto (RBC) [Entitic vol] Ordered By: Haris Martino on 06-08-2023 MCV (RBC) [Entitic vol] 85.9 fL 80-100 [facility] Monocyte distribution width [Entitic volume] in Blood by AutomatedOrdered By: Haris Martino on 06-08-2023 Monocyte distribution width Auto (Bld) [Entitic vol] 18.39 % 0.00-20.00 [facility] Monocytes Auto (Bld) [#/Vol] Ordered By: Haris Martino on 06-08-2023 Monocytes (Bld) [#/Vol] 0.5 10*3/uL 0.0-0.8 [facility] Monocytes/100 WBC Auto (Bld) Ordered By: Haris Martino on 06-08-2023 Monocytes/100 WBC (Bld) 6.6 % . [facility] Natriuretic peptide B [Mass/ Vol]Ordered By: Haris Martino on 06-08-2023 Natriuretic peptide B (Bld) [Mass/Vol] 9.0 pg/mL 5-100 [facility] Neutrophils Auto (Bld) [#/Vo l]Ordered By: Haris Martino on 06-08-2023 Neutrophils (Bld) [#/Vol] 4.6 10*3/uL 1.8-7.7 [facility] Neutrophils/100 WBC Auto (Bl d)Ordered By: Haris Martino on 06-08-2023 Neutrophils/100 WBC (Bld) 55.6 % . [facility] Nitrite Test strip Ql (U)Ord ered By: Haris Martino on 06-08-2023 Nitrite Ql (U) Negative Negative [facility] No Panel InformationOrdered By: Haris Martino on 06-08-2023 Estimated GFR (CKD-EPI) > 60.0 mL/Min [facility] Creatinine Clearance (Chem 155.50 [facility] Nucleated erythrocytes [Pres ence] in Blood by Automated countOrdered By: Haris Martino on 06-08-2023 Nucleated RBC Auto Ql (Bld) 0.1 /100{WBC} 0-0.5 [facility] Platelet mean volume Auto (B ld) [Entitic vol]Ordered By: Haris Martino on 06-08-2023 Platelet mean volume (Bld) [Entitic vol] 8.2 fL 6.3-10.7 [facility] Platelets Auto (Bld) [#/Vol] Ordered By: Haris Martino on 06-08-2023 Platelets (Bld) [#/Vol] 225 10*3/uL 150-450 [facility] Potassium [Moles/volume] in Serum or PlasmaOrdered By: Haris Martino on 06-08-2023 Potassium [Moles/Vol] 4.0 mmol/L 3.5-5.1 [facility] Protein Auto test strip (U) [Mass/Vol]Ordered By: Haris Martino on 06-08-2023 Protein (U) [Mass/Vol] Negative Negative [facility] Protein [Mass/volume] in Ser um or PlasmaOrdered By: Haris Martino on 06-08-2023 Protein [Mass/Vol] 7.5 g/dL 6.4-8.9 [facility] Prothrombin time (PT)Ordered By: Haris Martino on 06-08-2023 PT Coag (PPP) [Time] 12.2 s 9.0-12.[address] [facility] Comment on above: A hematocrit value g reater than 55% may lead to inaccurate results in coagulation testing. Patients having hematocrit values >55% require a special collection tube for coagulation studies. Please contact the laboratory at [phone] for redraw instructions. RBC Auto (Bld) [#/Vol]Ordere d By: Haris Martino on 06-08-2023 RBC (Bld) [#/Vol] 4.94 10*6/uL 3.60-5.00 [facility] Serum or plasma albumin/glob ulin mass ratioOrdered By: Haris Martino on 06-08-2023 Albumin/Globulin [Mass ratio] 1.6 {ratio} [facility] Serum or plasma anion gap de terminationOrdered By: Haris Martino on 06-08-2023 Anion gap [Moles/Vol] 9.7 mmol/L 6.0-15.0 [facility] Serum or plasma non-glucuron idated bilirubin measurement (mass/volume)Ordered By: Haris Martino on 06-08-2023 Bilirubin.indirect [Mass/Vol] 0.3 mg/dL [facility] Sodium [Moles/volume] in Ser um or PlasmaOrdered By: Haris Martino on 06-08-2023 Sodium [Moles/Vol] 139 mmol/L 136-145 [facility] Specific gravity Auto test s trip (U) [Rel density]Ordered By: Haris Martino on 06-08-2023 Specific gravity (U) [Rel density] 1.015 1.001-1.03 0 [facility] Squamous epithelial cells de tection in urine sediment by light microscopyOrdered By: Haris Martino on 06-08-2023 Epithelial cells.squamous LM Ql (Urine sed) 3-4 [HPF] 0-2 [facility] Troponin I.cardiac [Mass/vol ume] in Serum or Plasma by Detection limit <= 0.01 ng/Ordered By: Haris Martino on 06-08-2023 Troponin I.cardiac DL <= 0.01 ng/mL [Mass/Vol] < 2.3 pg/mL 0.0-15.0 [facility] Urea nitrogen [Mass/volume] in Serum or PlasmaOrdered By: Haris Martino on 06-08-2023 Urea nitrogen [Mass/Vol] 10 mg/dL 7-25 [facility] Urine bacteria detection by automated methodOrdered By: Haris Martino on 06-08-2023 Bacteria Auto Ql (U) 1+ None Seen [facility] Urine clarity by refractomet ry automatedOrdered By: Haris Martino on 06-08-2023 Clarity Refractometry automated (U) Clear Clear [facility] Urine glucose measurement by automated test strip (mass/volume)Ordered By: Haris Martino on 06-08-2023 Glucose Auto test strip (U) [Mass/Vol] Normal mg/dL Normal [facility] Urine hemoglobin detection b y automated test stripOrdered By: Haris Martino on 06-08-2023 Hemoglobin Auto test strip Ql (U) Negative Negative [facility] Urine leukocyte esterase det ection by automated test stripOrdered By: Haris Martino on 06-08-2023 Leukocyte esterase Auto test strip Ql (U) 1+ Negative [facility] Urobilinogen Auto test strip (U) [Mass/Vol]Ordered By: Haris Martino on 06-08-2023 Urobilinogen (U) [Mass/Vol] Normal mg/dL Normal [facility] WBC Auto (Bld) [#/Vol]Ordere d By: Haris Martino on 06-08-2023 WBC (Bld) [#/Vol] 8.3 10*3/uL 3.8-11.6 [facility] pH Auto test strip (U)Ordere d By: Haris Martino on 06-08-2023 pH (U) 6.5 [pH] 5.0-9.0 [facility] Alanine aminotransferase [En zymatic activity/volume] in Serum or PlasmaOrdered By: Carlitos Nguyen on 08-02-2023 ALT [Catalytic activity/Vol] 18 U/L 7-52 [facility] Albumin [Mass/volume] in Ser um or Plasma by Bromocresol green (BCG) dye binding methoOrdered By: Carlitos Nguyen on 04-25-2023 Albumin BCG dye [Mass/Vol] 4.8 g/dL 3.5-5.7 [facility] Alkaline phosphatase [Enzyma tic activity/volume] in Serum or PlasmaOrdered By: Carlitos Nguyen on 04-25-2023 ALP [Catalytic activity/Vol] 73 U/L 34-104 [facility] Aspartate aminotransferase [ Enzymatic activity/volume] in Serum or PlasmaOrdered By: Carlitos Nguyen on 04-25-2023 AST [Catalytic activity/Vol] 18 U/L 13-39 [facility] Bilirubin.total [Mass/volume ] in Serum or PlasmaOrdered By: Carlitos Nguyen on 04-25-2023 Bilirubin [Mass/Vol] 0.5 mg/dL 0.3-1.[address] [facility] Calcium [Mass/volume] in Ser um or PlasmaOrdered By: Carlitos Nguyen on 04-25-2023 Calcium [Mass/Vol] 9.9 mg/dL 8.6-10.3 [facility] Carbon dioxide, total [Moles /volume] in Serum or PlasmaOrdered By: Carlitos Nguyen on 04-25-2023 CO2 [Moles/Vol] 25.9 mmol/L 21.0-31.0 [facility] Chloride [Moles/volume] in S colin or PlasmaOrdered By: Carlitos Nguyen on 04-25-2023 Chloride [Moles/Vol] 105 mmol/L 98-[address] [facility] Cholesterol [Mass/volume] in Serum or PlasmaOrdered By: Carlitos Nguyen on 04-25-2023 Cholesterol [Mass/Vol] 208 mg/dL 140-200 [facility] Comment on above: Chol less than 200 m g/dl low riskChol 201-239 mg/dl borderline riskChol 240 mg/dl and greater high risk Cholesterol in LDL Calc [Mas s/Vol]Ordered By: Carlitos Nguyen on 04-25-2023 Cholesterol in LDL [Mass/Vol] 136 mg/dL 0-100 [facility] Comment on above: LDL ATP III CLASSIFI CATIONLDL less than 100 mg/dL OptimalLDL 100-129 mg/dL Near or above optimalLDL 130-159 mg/dL Borderline highLDL 160-189 mg/dL HighLDL greater than 189 mg/dL Very high Cholesterol in VLDL Calc [Ma ss/Vol]Ordered By: Carlitos Nguyen on 04-25-2023 Cholesterol in VLDL [Mass/Vol] 16 mg/dL [facility] Creatinine [Mass/volume] in Serum or PlasmaOrdered By: Carlitos Nguyen on 04-25-2023 Creatinine [Mass/Vol] 0.81 mg/dL 0.60-1.20 [facility] Globulin Calc (S) [Mass/Vol] Ordered By: Carlitos Nguyen on 04-25-2023 Globulin (S) [Mass/Vol] 2.6 g/dL [facility] Glucose [Mass/volume] in Ser um or PlasmaOrdered By: Carlitos Nguyen on 04-25-2023 Glucose [Mass/Vol] 84 mg/dL 70-100 [facility] No Panel InformationOrdered By: Carlitos Nguyen on 04-25-2023 Estimated GFR (CKD-EPI) > 60.0 mL/Min [facility] Creatinine Clearance (Chem N/A [facility] Potassium [Moles/volume] in Serum or PlasmaOrdered By: Carlitos Nguyen on 04-25-2023 Potassium [Moles/Vol] 4.3 mmol/L 3.5-5.1 [facility] Comment on above: Hemolysis is present at a level that could interfere with the result. Protein [Mass/volume] in Ser um or PlasmaOrdered By: Carlitos Nguyen on 04-25-2023 Protein [Mass/Vol] 7.4 g/dL 6.4-8.9 [facility] Serum or plasma albumin/glob ulin mass ratioOrdered By: Carlitos Nguyen on 04-25-2023 Albumin/Globulin [Mass ratio] 1.8 {ratio} [facility] Serum or plasma anion gap de terminationOrdered By: Carlitos Nguyen on 04-25-2023 Anion gap [Moles/Vol] 12.4 mmol/L 6.0-15.0 [facility] Serum or plasma high density lipoprotein (HDL) cholesterol measurementOrdered By: Carlitos Nguyen on 04-25-2023 Cholesterol in HDL [Mass/Vol] 55 mg/dL 23-92 [facility] Comment on above: HDL CHOL ATP-III CLA SSIFICATION Cardiovascular RiskHDL > or equal to 60 mg/dL LOWHDL < 40 mg/dL HIGH Serum or plasma total choles terol/high density lipoprotein (HDL) cholesterol mass ratOrdered By: Carlitos Nguyen on 04-25-2023 Cholesterol.total/Chol esterol in HDL [Mass ratio] 3.8 {ratio} <5.0 [facility] Sodium [Moles/volume] in Ser um or PlasmaOrdered By: Carlitos Nguyen on 04-25-2023 Sodium [Moles/Vol] 139 mmol/L 136-145 [facility] Triglyceride [Mass/volume] i n Serum or PlasmaOrdered By: Carlitos Nguyen on 04-25-2023 Triglyceride [Mass/Vol] 83 mg/dL 0-149 [facility] Comment on above: TRIG ATP III CLASSIF ICATIONTRIG less than 150 mg/dL NormalTRIG 150-199 mg/dL Borderline highTRIG 200-500 mg/dL High TRIG greater than 500 mg/dL Very highStandard traceable to the Center for Disease Conrtrol and Prevention (CDC) test method. Urea nitrogen [Mass/volume] in Serum or PlasmaOrdered By: Carlitos Nguyen on 04-25-2023 Urea nitrogen [Mass/Vol] 15 mg/dL 7-25 [facility] Tobacco Screening.on 023 Adult depression screening assessment No [facility] [employer] DO Work Phone: Fall risk assessment a) No falls within the last year [facility] [employer] DO Work Phone: Tobacco use status CPHS b) No [facility] [employer] DO Work Phone: Office Visit (Cardiology)on 09-11-2022 [...] in adult Healthy Weight Tips; Status:Complete; Done: [id number] SocHx: Never a smoker Tobacco Use Screening; Status:Complete; Done: [id number] Patient Instructions Please bring all medicines, vitamins, [...] she did get a second opinion in [place], and no change in medication was suggested [...] sinus sometime (more content not included)... Normal [facility] Tobacco Screening.on 022 Tobacco use status CPHS b) No -[facility] 250 DO Work Phone: Cardiovasc Arrhythmia Result son 07-31-2022 Cardiovasc Arrhythmia Results Reason For Visit MADYSON is here for the application of a Ziop[employer] monitor. Ordering Physician: Dr. Maza Diagnosis: abn TTT, dyspnea, syncope, autonomic orthostatic hypotension [facility] equipment agreement signed. MADYSON understands monitor is to be returned on: 08/14/22 Monitor number [id number] applied. Procedure Date I received for dictation [...] MD; Aug 28 2022 10:26AM EST Normal [facility] Office Visit (Cardiology)on 07-21-2022 Follow-up visit Diagnoses/Problems [...] alcoholic beverages.; Status:Complete - Retrospective Authorization; Done: [id number] Avoid foods and beverages that contain caffeine.; Status:Complete - Retrospective Authorization; Done: [id number] Begin or continue regular aerobic exercise. Gradually work up to at least 3 sessions of 30 minutes of exercise a week.; Status:Complete - Retrospective Authorization; Done: 94Qol0329 Diets that are low in carbohydrates and [...] a smoker Tobacco Use Screening; Status:Complete; Done: 34Qrc7444 Patient Instructions Drink plenty of water daily, [...] Jiang in 1 week. I, Tammy Lujan, HAR[employer] DEPARTMENT MANAGER, am scribing for and in the presence [...] heart murmur and has been transferred to [facility] There is no family history of SIDS, [...] cardiac data (more content not included)... Normal [facility] Tobacco Screening.on 022 Fall risk assessment b) One or more fall s in the last year [facility] [employer] 320 DO Work Phone: Tobacco use status CPHS b) No [facility] 320 DO Work Phone: Office Visit (Cardiology)on [...] Confirmed - N/A AMA Intake updated by [facility] on 2022-07-11 22:02 New Recipient: Annalee Maza Appointment Date: 2022-07-21 07:20 Autonomic orthostatic hypotension, Syncope, unspecified syncope type Changed: From To Midodrine HCl - 10 MG Oral Tablet TAKE 1 TABLET 3 TIMES DAILY Class 1 obesity with body mass index (BMI) of 31.0 to 31.9 in adult Avoid getting up or changing positions quickly.; Status:Complete; Done: 74Odz4894 Healthy Weight Tips; Status:Complete; Done: 34Ucd2847 Some eating tips that can help you lose weight.; Status:Complete; Done: 48Inf2071 Dyspnea (786.09) (R06.00) Class 1 obesity with [...] from 6 (more content not included)... Normal [facility] Tobacco Screening.on 022 Tobacco use status HS b) No -[facility] 250 DO Work Phone: COVID CepheidOrdered By: Daniele Pearce on 06-01-2022 SARS-CoV-2 (COVID-19) Ab IA Ql Negative Negative [facility] Comment on above: This is a duplicate CepSplitid Xpert Xpress CoV-2/Flu/RSV Plus RNA by RT-PCR result to be used for statistical tracking purpose only. SARS-CoV-2 (COVID-19) RNA PERFECTO+probe Ql (Unsp spec) [facility] Office Visit (Cardiology)on 05-18-2022 Follow-up visit [...] in adult Healthy Weight Tips; Status:Complete; Done: 76Mqu8531 Some eating tips that can help you lose weight.; Status:Complete; Done: 97Mlv8892 Dyspnea, Syncope, unspecified syncope type Urine Test; Status:Active - Retrospective By Protocol Authorization; Requested for:[id number]; Palpitation Start: Atenolol 25 MG Oral Tablet; TAKE 1 TABLET DAILY Syncope, unspecified syncope type Tilt Table; Status:Hold For - Scheduling,Retrospective By Protocol Authorization; Requested for:[id number]; Patient Instructions Please bring all medicines, vitamins, [...] cardiology consultation at the request of Ibis Colbret NP, for bouts of severe shortness of [...] walking to the bathroom. She will see professional sports scout in the near future, she had her pulmonary function test which I reviewed, there is concern for chronic asthma, but no reactive airway disease. She has 3 dogs that she had, and 1 cat at home. She is not orthostatic. She is feeling palpitations quite a bit. Results of the pulmonary function test and a Micah [employer] was reviewed. Also reviewed stress test and [...] 3.5 c (more content not included)... Normal [facility] Tobacco Screening.on 022 Tobacco use status CPHS b) No [facility] 250 DO Work Phone: No Panel Informationon 05-03 [facility] 250 DO Work Phone: [facility] 250 DO Work Phone: Cardiovasc Arrhythmia Result son 03-28-2022 Cardiovasc Arrhythmia Results Reason For Visit Event Monitor: MADYSON is here for the application of a 30 day event monitor in office., Diagnosis: Palps, Dyspnea, Chest pain Ordering Physician: Enrollment sent to: [employer] Monitor number [id number] applied. Holter monitor printed and placed on [...] (R00.2) Future Appointments Date/TimeProviderSpecialt ySite 05/03/2022 10:00 María Elena Cesar MDCardiologySurgery [facility] 05/18/2022 09:15 [facility] Syl[facility] 250 DO Signatures Electronically signed by : Melodie Alcaraz MD; May 01 2022 7:56PM EST (Author) Normal [facility] - Chemistry and C hemistry - challengeOrdered By: Melodie Alcaraz on 03-24-2022 Natriuretic peptide B (Bld) [Mass/Vol] 27.0 pg/mL 5-100 [facility] No Panel InformationOrdered By: Melodie Alcaraz on 03-24-2022 D-Dimer Quantitative (PE/DVT) < 200 ng/mL 0-243 [facility] Comment on above: The reference range [...] due to co-morbid conditions. No Panel Informationon 07-01 -2022 0.70\\S\\0.70 Normal 0.45-5.33 -[facility] 250 DO Work Phone: Comment on above: PERFORMED BY:[place] [address] [place] [phone] MEDICAL DIRECTOROFE ELLIS M.D. 0.99\\S\\0.99 Normal 0.61-1.12 -[facility] 250 DO Work Phone: 27.0\\S\\27.0 Normal 5-100 [facility] DO Work Phone: Comment on above: PERFORMED BY:[place] [address] [place], [place] [phone] MEDICAL DIRECTOROFE ELLIS M.D. < 200 Normal 0-243 [facility] Work Phone: Comment on [...] in hospitalized patients due to co-morbid conditions.PERFORMED BY:[place] [address] [place], [place] [phone] MEDICAL DIRECTOROFE ELLIS M.D. TSH DL <= 0.005 mIU/L QnOrde red By: Melodie Alcaraz on 03-24-2022 TSH Qn 0.70 m[IU]/L 0.45-5.33 [facility] Thyroxine (T4) free [Mass/vo lume] in Serum or PlasmaOrdered By: Melodie Alcaraz on 03-24-2022 Free T4 [Mass/Vol] 0.99 ng/dL 0.61-1.12 [facility] Office Visit (Cardiology)on 03-23-2022 Follow-up [...] All medical record entries made by the Cierraibvenita were at my direction and personally dictated [...] twin brother had to be taken to [facility], and has history of heart [...] frequently pic (more content not included)... Normal [facility] PHQ-2 VITALSon 03-23-2022 Adult depression screening assessment No [facility] [employer] y 250 DO Work Phone: Fall risk assessment c) Not medically indicated [facility] [employer] 250 DO Work Phone: Tobacco use status CPHS b) No [facility] [employer] 250 DO Work Phone: ARMANI BY IFA WITH REFLEXon Nuclear Ab IF (S) [Titer] Negative Negative [facility] CCP ANTIBODY IGGon Cyclic citrullinated peptide IgG Qn <15 <20 Units [facility] Cyclic citrullinated peptide IgG Qnon 01-26-2022 CCP Antibody IgG Qualitative Negative Negative [facility] Nuclear Ab IA Ql (S)on 01-26 ARMANI by EIA, Qual Negative Negative [facility] ARMANI BY IFA WITH REFLEXon Nuclear Ab IF (S) [Titer] Negative Normal Negative [facility] Comment on above: Order Comment: Speci men Type: BLOOD SPECIMEN Ordering Facility: [facility] Address: [address] [place] [address] Result Comment: Anti -nuclear antibody test is used as an aid in diagnosis of systemic autoimmune diseases. Where positive and clinically warranted, follow-up using disease-specific testing is recommended. Low positive titers are not uncommon with advanced age, certain chronic infections, and malignancies among others. Test methodology: Indirect fluorescence immunoassay (IFA) using HEp-2 cells. Performed By: #### A NAIFR #### [facility] CLIA [id number] [address] [place] [address] [place] C-REACTIVE PROTEIN (CRP)on 0 01-25-2022 CRP [Mass/Vol] 0.4 mg/dL <0.9 mg/dL [facility] C1 ESTERASE INHIBITon 2021 C1 ESTERASE INHIBIT 26 mg/dL Normal 21-38 [facility] Comment on above: Order Comment: Speci ana rosa Type: BLOOD SPECIMEN Ordering Facility: [facility] Address: [address] [place] [address] Result Comment: Perf ormed By: [employer] [address] [place], [place] [id number] Hogshead Opener: Brittni Moscoso MD Performed By: #### 1 6570-4, 88439-3, 86052-7, 24281-5, 06689-5, 38302-2, 54224-7, 73028-4 #### [facility] CLIA [id number] [address] [place] [address] [place] C2 COMPLEMENT BLDon 01-26-20 22 C2 COMPLEMENT 2.4 mg/dL Normal 1.6-4.0 [facility] Comment on above: Order Comment: Jose Carlos oseguera Type: BLOOD SPECIMEN Ordering Facility: [facility] Address: [address] [place] [address] Result Comment: INTE RPRETIVE INFORMATION: Complement Component 2 Decreased C2 levels may be associated with increased susceptibility to infection (especially pneumococcal infections), systemic lupus erythematosus-like disease, rashes, arthritis and nephritis, and with C1-Esterase deficiency. Increased C2 levels are associated with the acute phase response. This test was developed and its performance characteristics determined by [employer]. It has not been cleared or approved by the [place] Food and Drug Administration. This test was performed in a CLIA certified laboratory and is intended for clinical purposes. Performed By: [facility] [address] [place] [address] Hogshead Opener: Brittni Moscoso MD Performed By: #### 1 6570-4, 94993-4, 05551-7, 16992-4, 74588-6, 05327-7, 52966-2, 75052-3 #### [facility] CLIA [id number] [address] [place] [address] [place] C3 COMPLEMENT BLDon 01-26-20 22 Complement C3 [Mass/Vol] 130 mg/dL 86 - 166 mg/dL [facility] C3 SerPl-mCncon 01-25-2022 Complement C3 [Mass/Vol] 130 mg/dL Normal 86-166 [facility] Comment on above: Order Comment: Speci men Type: BLOOD SPECIMEN [facility]ing Facility[facility] Address: [address] [place] [address] Performed By: #### 1 6570-4, 57094-0, 81091-2, 16064-9, 13270-9, 43405-2, 39379-5, 89377-0 #### [facility] CLIA [id number] [address] [place] [address] [place] C4 COMPLEMENT BLDon 01-26-20 22 Complement C4 [Mass/Vol] 30 mg/dL 13 - 46 mg/dL [facility] C4 SerPl-ncon 01-25-2022 Complement C4 [Mass/Vol] 30 mg/dL Normal 13-46 [facility] Comment on above: Order Comment: Speci men Type: BLOOD SPECIMEN Ordering Facility[facility] Address: [address] [place] [address] Performed By: #### 1 6570-4, 54660-0, 73991-8, 44975-4, 92829-6, 63070-3, 79345-9, 26937-6 #### [facility] CLIA [id number] [address] [place] [address] [place] CBC panel Auto (Bld)on 01-25 Erythrocyte distribution width (RBC) [Ratio] 12.1 % Normal 11.5-15.0 [facility] Comment on above: Order Comment: Speci men Type: BLOOD SPECIMEN Ordering Facility[facility] Address: [address] [place] [address] Performed By: #### 1 6570-4, 53497-7, 71862-1, 72474-3, 39085-0, 09281-9, 41183-5, 87921-5 #### [facility] CLIA [id number] [address] [place] [address] [place] Hematocrit (Bld) [Volume fraction] 42.6 % Normal 36.0-46.0 [facility] Comment on above: Order Comment: Speci men Type: BLOOD SPECIMEN Ordering Facility: [facility] Address: [address] [place] [address] Performed By: #### 1 6570-4, 38960-5, 72703-2, 06014-0, 84297-0, 52844-6, 32548-9, 76772-1 #### [facility] CLIA [id number] [address] [place] [address] [place] Hemoglobin (Bld) [Mass/Vol] 13.8 g/dL Normal 11.5-15.5 [facility] Comment on above: Order Comment: Speci men Type: BLOOD SPECIMEN Ordering Facility[facility] Address: [address] [place] [address] Performed By: #### 1 6570-4, 58200-9, 50225-2, 88824-9, 67777-6, 36021-5, 17305-5, 51230-7 #### [facility] CLIA [id number] [address] [place] [address] [place] MCH (RBC) [Entitic mass] 28.3 pg Normal 26.0-34.0 [facility] Comment on above: Order Comment: Speci men Type: BLOOD SPECIMEN Ordering Facility[facility] Address: [address] [place] [address] Performed By: #### 1 6570-4, 11471-8, 80248-3, 40762-7, 98536-9, 52046-4, 31853-9, 76901-3 #### [facility] CLIA [id number] [address] [place] [address] [place] MCHC (RBC) [Mass/Vol] 32.4 g/dL Normal 30.5-36.0 [facility] Comment on above: Order Comment: Speci men Type: BLOOD SPECIMEN Ordering [facility] Address: [address] [place] [address] Performed By: #### 1 6570-4, 67950-5, 47271-7, 36933-5, 33112-7, 05755-8, 97132-3, 49073-5 #### [facility] CLIA [id number] [address] [place] [address] [place] MCV (RBC) [Entitic vol] 87.3 fL Normal 80.0-100.0 [facility] Comment on above: Order Comment: Speci men Type: BLOOD SPECIMEN Ordering Facility[facility] Address: [address] [place] [address] Performed By: #### 1 6570-4, 89618-9, 98315-8, 83077-5, 60392-5, 33671-0, 71583-5, 35646-8 #### [facility] CLIA [id number] [address] [place] [address] [place] Nucleated RBC (Bld) [#/Vol] 10*3/uL Normal <0.01 [facility] Comment on above: Order Comment: Speci men Type: BLOOD SPECIMEN Order[facility] Address: [address] [place] [address] Performed By: #### 1 6570-4, 69077-3, 08916-9, 00853-3, 34777-5, 62266-4, 17113-2, 32862-8 #### [facility] CLIA [id number] [address] [place] [address] [place] Platelet mean volume (Bld) [Entitic vol] 10.3 fL Normal 9.0-12.7 [facility] Comment on above: Order Comment: Speci men Type: BLOOD SPECIMEN Ordering Facility[facility] Address: [address] [place] [address] Performed By: #### 1 6570-4, 18997-2, 87791-2, 59328-4, 54852-8, 78095-3, 53243-0, 40440-5 #### [facility] CLIA [id number] [address] [place] [address] [place] Platelets (Bld) [#/Vol] 213 10*3/uL Normal 150-400 [facility] Comment on above: Order Comment: Speci men Type: BLOOD SPECIMEN Ordering Facility[facility] Address: [address] [place] [address] Performed By: #### 1 6570-4, 15805-9, 72161-4, 65636-5, 72388-0, 82325-1, 54159-7, 13976-0 #### [facility] CLIA [id number] [address] [place] [address] [place] RBC (Bld) [#/Vol] 4.88 10*6/uL Normal 3.90-5.20 [facility] Comment on above: Order Comment: Speci men Type: BLOOD SPECIMEN Ordering [facility] Address: [address] [place] [address] Performed By: #### 1 6570-4, 88913-3, 35018-9, 84052-5, 55418-3, 40828-6, 76935-8, 52177-9 #### [facility] CLIA [id number] [address] [place] [address] [place] WBC (Bld) [#/Vol] 4.77 10*3/uL Normal 3.70-11.00 [facility] Comment on above: Order Comment: Speci men Type: BLOOD SPECIMEN Ordering Facility[facility] Address: [address] [place], [place] [address] Performed By: #### 1 6570-4, 69976-8, 78769-7, 74456-6, 29620-0, 12116-6, 91492-7, 22641-5 #### [facility] CLIA [id number] [address] [place] [address] [facility] Erythrocyte distribution width (RBC) [Ratio] 12.1 % 11.5 - 15.0 % [facility] Hematocrit (Bld) [Volume fraction] 42.6 % 36.0 - 46.0 % [facility] Hemoglobin (Bld) [Mass/Vol] 13.8 g/dL 11.5 - 15.5 g/dL [facility] MCH (RBC) [Entitic mass] 28.3 pg 26.0 - 34.0 pg [facility] MCHC (RBC) [Mass/Vol] 32.4 g/dL 30.5 - 36.0 g/dL [facility] MCV (RBC) [Entitic vol] 87.3 fL 80.0 - 100.0 fL [facility] Nucleated RBC (Bld) [#/Vol] 10*3/uL <0.01 k/uL [facility] Platelet mean volume (Bld) [Entitic vol] 10.3 fL 9.0 - 12.7 fL [facility] Platelets (Bld) [#/Vol] 213 10*3/uL 150 - 400 k/uL [facility] RBC (Bld) [#/Vol] 4.88 10*6/uL 3.90 - 5.20 m/uL [facility] WBC (Bld) [#/Vol] 4.77 10*3/uL 3.70 - 11.00 k/uL [facility] CRP SerPl-mCncon 01-25-2022 CRP [Mass/Vol] 0.4 mg/dL Normal <0.9 [facility] Comment on above: Order Comment: Speci men Type: BLOOD SPECIMEN [facility] Facility[facility] Address: [address] [place], [place] [id number] Performed By: #### 1 6570-4, 88990-9, 17342-6, 15971-6, 85699-2, 33908-7, 17421-0, 54547-1 #### [facility] CLIA [id number] [address] [place] [address] [place] Centromere Ab IF Ql (S)on Centromere Ab Qn (S) <0.2 Normal <1.0 [facility] Comment on above: Order Comment: Speci men Type: BLOOD SPECIMEN [facility] Address: [address] [place] [address] Result Comment: Anti -centromere antibody is used as in aid in diagnosis of systemic sclerosis. Clinical correlation is required. Test Methodology: Multiplex flow immunoassay. Performed By: #### 1 6570-4, 73973-1, 75752-6, 14540-3, 46790-2, 54548-3, 83406-6, 29940-9 #### [facility] CLIA [id number] [address] [place] [address] STATES [facility] CENTROMERE AB QUAL Negative Normal Negative [facility] Comment on above: Order Comment: Speci men Type: BLOOD SPECIMEN [facility]ing Facility: [facility] Address: [address] [place], [place] [address] Performed By: #### 1 6570-4, 86057-7, 59945-6, 28502-2, 11913-5, 87332-2, 24943-5, 30077-3 #### [facility] CLIA [id number] [address] [place] [address] [place] Chromatin Ab Qnon 01-25-2022 CHROMATIN AB QUAL Negative Normal Negative [facility] Comment on above: Order Comment: Speci men Type: BLOOD SPECIMEN [facility]ing Facility[facility] Address: [address] [place], [place] [address] Performed By: #### 1 6570-4, 15817-4, 38570-5, 22225-0, 19601-1, 33243-9, 48772-1, 62876-5 #### [facility] CLIA [id number] [address] [place] [address] [place] Chromatin Ab SerPl-aCncon Chromatin Ab Qn <0.2 Normal <1.0 [facility] Comment on above: Order Comment: Speci men Type: BLOOD SPECIMEN [facility] Address: [address] [place], [place] [id number] Result Comment: Test Methodology: Multiplex flow immunoassay. Performed By: #### 1 6570-4, 37384-4, 04270-4, 47619-2, 29848-5, 23207-6, 98642-0, 77399-6 #### [facility] CLIA [id number] [address] [place] [address] Comprehensive metabolic 2000 panelon 01-25-2022 Albumin [Mass/Vol] 4.5 g/dL 3.9 - 4.9 g/dL [facility] ALP [Catalytic activity/Vol] 65 U/L 34 - 123 U/L [facility] ALT [Catalytic activity/Vol] 14 U/L 7 - 38 U/L [facility] Anion gap [Moles/Vol] 11 mmol/L 9 - 18 mmol/L [facility] AST [Catalytic activity/Vol] 14 U/L 13 - 35 U/L [facility] Bilirubin [Mass/Vol] 0.3 mg/dL 0.2 - 1 .3 mg/dL [facility] Calcium [Mass/Vol] 9.5 mg/dL 8.5 - 10. 2 mg/dL [facility] Chloride [Moles/Vol] 105 mmol/L 97 - 10 5 mmol/L [facility] CO2 [Moles/Vol] 26 mmol/L 22 - 30 mmol/L [facility] Creatinine [Mass/Vol] 0.71 mg/dL 0.58 - 0.96 mg/dL [facility] Estimated Glomerular Filtration Rate 125 mL/min/1.73m >=60 mL/min/1.7 3m [facility] Glucose [Mass/Vol] 94 mg/dL 74 - 99 mg/dL [facility] Potassium [Moles/Vol] 4.6 mmol/L 3.7 - 5.1 mmol/L [facility] Protein [Mass/Vol] 7.2 g/dL 6.3 - 8.0 g/dL [facility] Sodium [Moles/Vol] 142 mmol/L 136 - 144 mmol/L [facility] Urea nitrogen [Mass/Vol] 8 mg/dL 7 - 21 mg/dL [facility] Albumin [Mass/Vol] 4.5 g/dL Normal 3.9-4.9 [facility] Comment on above: Order Comment: Speci men Type: BLOOD SPECIMEN [facility] Address: [address] [place] [address] Performed By: #### 1 6570-4, 31676-8, 99997-6, 88713-9, 74681-1, 14764-7, 00557-7, 10883-9 #### [facility] CLIA [id number] [address] [place] [address] [place] ALP [Catalytic activity/Vol] 65 U/L Normal 34-123 [facility] Comment on above: Order Comment: Speci men Type: BLOOD SPECIMEN [facility] Address: [address] [place] [address] Performed By: #### 1 6570-4, 15128-3, 18263-3, 59508-1, 61253-3, 35840-7, 17034-8, 08533-9 #### [facility] CLIA [id number] [address] [place] [address] [place] ALT [Catalytic activity/Vol] 14 U/L Normal 7-38 [facility] Comment on above: Order Comment: Speci men Type: BLOOD SPECIMEN [facility] Address: [address] [place] [address] Performed By: #### 1 6570-4, 08718-8, 32786-4, 37010-4, 66163-4, 63834-2, 54604-0, 39208-2 #### [facility] CLIA [id number] [address] [place] [address] [place] Anion gap [Moles/Vol] 11 mmol/L Normal 9-18 [facility] Comment on above: Order Comment: Speci men Type: BLOOD SPECIMEN [facility] Address: [address] [place] [address] Performed By: #### 1 6570-4, 24086-4, 43589-3, 65589-9, 31054-1, 66433-8, 37599-0, 32745-5 #### [facility] CLIA [id number] [address] [place] [address] [place] AST [Catalytic activity/Vol] 14 U/L Normal 13-35 [facility] Comment on above: Order Comment: Speci men Type: BLOOD SPECIMEN [facility] Address: [address] [place] [address] Performed By: #### 1 6570-4, 26159-0, 97974-9, 66458-1, 14443-0, 21613-7, 05684-1, 69104-7 #### [facility] CLIA [id number] [address] [place] [address] [place] Bilirubin [Mass/Vol] 0.3 mg/dL Normal 0.2-1.3 [facility] Comment on above: Order Comment: Speci men Type: BLOOD SPECIMEN [facility] Address: [address] [place] [address] Performed By: #### 1 6570-4, 39769-9, 91731-6, 36806-2, 23483-4, 34739-3, 56224-5, 24939-5 #### [facility] CLIA [id number] [address] [place] [address] [place] Calcium [Mass/Vol] 9.5 mg/dL Normal 8.5-10.2 [facility] Comment on above: Order Comment: Speci men Type: BLOOD SPECIMEN [facility] Address: [address] [place] [address] Performed By: #### 1 6570-4, 80156-2, 04821-5, 63835-7, 52561-9, 99052-3, 55164-7, 13789-3 #### [facility] CLIA [id number] [address] [place] [address] [place] Chloride [Moles/Vol] 105 mmol/L Normal 97-105 [facility] Comment on above: Order Comment: Speci men Type: BLOOD SPECIMEN [facility] Address: [address] [place] [address] Performed By: #### 1 6570-4, 96006-4, 67110-4, 32248-1, 27228-1, 15332-2, 03859-1, 20429-6 #### [facility] CLIA [id number] [address] [place] [address] [place] CO2 [Moles/Vol] 26 mmol/L Normal 22-30 [facility] Comment on above: Order Comment: Speci men Type: BLOOD SPECIMEN [facility] Address: [address] [place] [address] Performed By: #### 1 6570-4, 29471-2, 41990-8, 67360-7, 50725-7, 86427-3, 05716-6, 22554-6 #### [facility] CLIA [id number] [address] [place] [address] [place] Creatinine [Mass/Vol] 0.71 mg/dL Normal 0.58-0.96 [facility] Comment on above: Order Comment: Speci men Type: BLOOD SPECIMEN [facility] Address: [address] [place] [address] Performed By: #### 1 6570-4, 74083-2, 12890-6, 66807-4, 61310-8, 02577-0, 46860-5, 04463-1 #### [facility] CLIA [id number] [address] [place] [address] [place] ESTIMATED GLOMERULAR FILTRATION RATE 125 mL/min/1.73m??? Normal >=60 [facility] Comment on above: Order Comment: Jose Carlos oseguera Type: BLOOD SPECIMEN Order[facility] Address: [address] [place] [id number] Result Comment: Francesca mated Glomerular Filtration Rate [...] actual GFR. Performed By: #### 1 6570-4, 48227-1, 45464-0, 49049-5, 97583-0, 33450-4, 15187-6, 00645-6 #### [facility] CLIA [id number] [address] [place] [address] [place] Glucose [Mass/Vol] 94 mg/dL Normal 74-99 [facility] Comment on above: Order Comment: Jose Carlos oseguera Type: BLOOD SPECIMEN Ordering [facility] Address: [address] [place] [id number] Result Comment: The [place] [employer] (ADA) provides guidance for cutoff [...] Standards of Medical Care in Diabetes 2016, [place] [employer]. Diabetes Care. 2016.39(Suppl 1). Performed By: #### 1 6570-4, 10786-3, 06697-6, 80418-5, 22450-7, 17067-4, 41272-3, 47547-2 #### [facility] CLIA [id number] [address] [place] [address] [place] Potassium [Moles/Vol] 4.6 mmol/L Normal 3.7-5.1 [facility] Comment on above: Order Comment: Speci men Type: BLOOD SPECIMEN [facility] Address: [address] [place] [address] Performed By: #### 1 6570-4, 30112-9, 74525-9, 81663-5, 92034-9, 06474-3, 50082-2, 37788-6 #### [facility] CLIA [id number] [address] [place] [address] [place] Protein [Mass/Vol] 7.2 g/dL Normal 6.3-8.0 [facility] Comment on above: Order Comment: Speci men Type: BLOOD SPECIMEN [facility] Address: [address] [place] [address] Performed By: #### 1 6570-4, 02909-9, 70640-4, 34307-3, 30981-9, 26106-2, 03132-1, 92368-0 #### [facility] CLIA [id number] [address] [place] [address] [place] Sodium [Moles/Vol] 142 mmol/L Normal 136-144 [facility] Comment on above: Order Comment: Speci men Type: BLOOD SPECIMEN Order[facility] Address: [address] [place] [address] Performed By: #### 1 6570-4, 00392-3, 37936-8, 44901-6, 02963-5, 87112-0, 45808-9, 16150-3 #### [facility] CLIA [id number] [address] [place] [address] [place] Urea nitrogen [Mass/Vol] 8 mg/dL Normal 7-21 [facility] Comment on above: Order Comment: Speci men Type: BLOOD SPECIMEN [facility] Address: [address] [place] [address] Performed By: #### 1 6570-4, 61357-9, 83444-5, 15145-4, 40977-4, 16363-4, 32031-9, 31665-8 #### [facility] CLIA [id number] [address] [place] [address] [place] Cyclic citrullinated peptide IgG Qnon 01-25-2022 CCP ANTIBODY IGG QUALITATIVE Negative Normal Negative [facility] Comment on above: Order Comment: Speci men Type: BLOOD SPECIMEN [facility] Address: [address] [place] [address] Performed By: #### 1 6570-4, 56063-5, 50440-0, 14821-4, 76874-1, 33874-9, 37479-7, 93363-3 #### [facility] CLIA [id number] [address] [place] [address] [place] Jo1 Ab Ser-aCncon 2021 Yuly-1 extractable nuclear Ab Qn (S) <0.2 Normal <1.0 [facility] Comment on above: Order Comment: Speci men Type: BLOOD SPECIMEN [facility] Address: [address] [place] [address] Performed By: #### 1 6570-4, 68862-3, 34625-1, 55795-5, 87902-7, 68646-7, 94569-5, 15137-5 #### [facility] CLIA [id number] [address] [place] [address] [place] CORPORATE DIRECTOR OF HUMAN RESOURCES Ab Ser-aCncon 2021 Ribonucleoprotein extractable nuclear Ab Qn (S) <0.2 Normal <1.0 [facility] Comment on above: Order Comment: Speci men Type: BLOOD SPECIMEN [facility] Address: [address] [place] [address] Performed By: #### 1 6570-4, 95657-6, 89308-6, 11288-1, 81916-7, 13760-0, 33834-2, 93838-7 #### [facility] CLIA [id number] [address] [place] [address] [place] SM IgG Ser-aCncon 2021 Cota extractable nuclear IgG Qn (S) <0.2 Normal <1.0 [facility] Comment on above: Order Comment: Speci men Type: BLOOD SPECIMEN [facility] Address: [address] [place] [address] Performed By: #### 1 6570-4, 79728-0, 95540-6, 24863-9, 97174-1, 47368-5, 45058-8, 70146-2 #### [facility] CLIA [id number] [address] [place] [address] [place] SS-A Ab Ser-aCncon 01-25 Sjogrens syndrome-A extractable nuclear Ab Qn (S) <0.2 Normal <1.0 [facility] Comment on above: Order Comment: Speci men Type: BLOOD SPECIMEN [facility] Address: [address] [place] [address] Result Comment: Test Methodology: Multiplex flow immunoassay. Performed By: #### 1 6570-4, 05883-0, 80113-7, 49624-3, 38401-6, 40575-2, 73036-3, 11316-4 #### [facility] CLIA [id number] [address] [place] [address] [place] SS-B Ab Ser-aCncon 01-25 Sjogrens syndrome-B extractable nuclear Ab Qn (S) <0.2 Normal <1.0 [facility] Comment on above: Order Comment: Speci men Type: BLOOD SPECIMEN [facility] Address: [address] [place] [address] Result Comment: Anti -SSB (anti-La) antibody is used as an aid in diagnosis of a variety of systemic autoimmune diseases, especially for Sjogren's syndrome and systemic lupus erythematosus. Clinical correlation is required. Test Methodology: Multiplex flow immunoassay. Performed By: #### 1 6570-4, 30668-7, 89088-1, 42850-8, 33359-4, 99834-8, 61734-3, 66730-0 #### [facility] CLIA [id number] [address] [place] [address] [place] ESR Westergren method (Bld) [Velocity]on 01-25-2022 ESR (Bld) [Velocity] 2 mm/h 0 - 20 mm/hr [facility] ESR (Bld) [Velocity] 2 mm/h Normal 0-20 [facility] Comment on above: Order Comment: Speci men Type: BLOOD SPECIMEN [facility] Address: [address] [place] [address] Performed By: #### 1 6570-4, 85892-4, 62107-3, 50078-9, 85813-8, 80768-6, 59257-7, 67382-0 #### [facility] CLIA [id number] [address] [place] [address] [place] HBV core Ab Ser Qlon 022 HBV core Ab Ql (S) Negative Normal Negative [facility] Comment on above: Order Comment: Specyelitza oseguera Type: BLOOD SPECIMEN [facility] Address: [address] [place] [address] Result Comment: No e vidence of current or past infection with Hepatitis B virus. Should recent infection be suspected, repeat testing may be considered 3-4 weeks after this draw. Performed By: #### 1 6570-4, 71696-9, 56055-5, 82905-8, 16063-8, 52559-9, 45342-5, 16246-5 #### [facility] CLIA [id number] [address] [place] [address] [place] HBV surface Ab IA Ql (S)on 0 01-25-2022 HBV surface Ag Ql (S) Negative Normal Negative [facility] Comment on above: Order Comment: Speci men Type: BLOOD SPECIMEN [facility] Address: [address] [place] [address] Performed By: #### 1 6570-4, 90664-4, 82020-8, 25841-3, 42344-4, 77761-9, 34442-1, 72398-7 #### [facility] CLIA [id number] [address] [place] [address] [place] HBV surface Ab Ser Qlon 05- HBV surface Ab Ql (S) Negative Normal Negative [facility] Comment on above: Order Comment: Speci men Type: BLOOD SPECIMEN [facility] Address: [address] [place] [address] Result Comment: No e vidence of current or past infection with Hepatitis B virus. Should recent infection be suspected, repeat testing may be considered 3-4 weeks after this draw. Performed By: #### 1 6570-4, 72667-6, 53479-1, 86041-5, 15066-9, 15369-1, 24153-1, 18449-6 #### [facility] CLIA [id number] [address] [place] [address] [place] HCV Ab Ser Qlon 01-25-2022 HCV Ab Ql (S) Negative Normal Negative [facility] Comment on above: Order Comment: Speci men Type: BLOOD SPECIMEN [facility] Address: [address] [place] [address] Result Comment: The result suggests no evidence of active infection with Hepatitis C virus. Should recent infection be suspected, repeat testing may be considered 4-6 weeks after this draw. Performed By: #### 1 6570-4, 37812-0, 43893-6, 65479-9, 49105-6, 11180-0, 79099-0, 06942-1 #### [facility] CLIA [id number] [address] [place] [address] [place] Yuly-1 extractable nuclear Ab Qn (S)on 01-25-2022 YULY 1 ANTIBODY QUAL Negative Normal Negative [facility] Comment on above: Order Comment: Jose Carlos oseguera Type: BLOOD SPECIMEN [facility] Address: [address] [place] [address] Result Comment: Anti -YULY-1 antibody is used as an aid in diagnosis of polymyositis and dermatomyositis especially with pulmonary involvement. A negative result cannot rule out polymyositis or dermatomyositis. Clinical correlation is required. Test Methodology: Multiplex flow immunoassay. Performed By: #### 1 6570-4, 02246-0, 73519-4, 70886-9, 23226-6, 49967-9, 64928-4, 53531-0 #### [facility] CLIA [id number] [address] [place] [address] [place] Nuclear Ab IA Ql (S)on 01-25 [facility]MAN[facility] EIA, QUAL Negative Normal Negative [facility] Comment on above: Order Comment: Jose Carlos oseguera Type: BLOOD SPECIMEN [facility] Address: [address] [place] [address] Result Comment: The qualitative antinuclear antibody screen test performed using enzyme immunoassay including the following antigens: dsDNA, histones, SS-A, SS-B, Sm, Sm/CORPORATE DIRECTOR OF HUMAN RESOURCES, Scl-70, Yuly-1, and centromeric antigens. Performed By: #### 1 6570-4, 38606-3, 88927-7, 40623-6, 58774-2, 24959-9, 76553-8, 51025-3 #### [facility] CLIA [id number] [address] [place] [address] [place] RHEUMATOID FACTOR BLon 01-25 Rheumatoid factor Qn [IU]/mL <16 IU/mL [facility] Rheumatoid factor Qn [IU]/mL Normal <16 [facility] Comment on above: Order Comment: Jose Carlos oseguera Type: BLOOD SPECIMEN [facility] Address: [address] [place] [address] Performed By: #### 1 6570-4, 86638-8, 88806-8, 12371-0, 95565-5, 11730-6, 99310-7, 21666-5 #### [facility] CLIA [id number] [address] [place] [address] [place] Ribonucleoprotein extractabl e nuclear Ab Qn (S)on 01-25-2022 ANTI-CORPORATE DIRECTOR OF HUMAN RESOURCES QUAL Negative Normal Negative [facility] Comment on above: Order Comment: Horacioi ana rosa Type: BLOOD SPECIMEN [facility] Address: [address] [place] [address] Performed By: #### 1 6570-4, 32399-0, 44075-5, 63958-4, 66791-1, 10895-8, 46369-8, 03194-1 #### [facility] CLIA [id number] [address] [place] [address] [place] RIBOSOMAL CORPORATE DIRECTOR OF HUMAN RESOURCES QUAL Negative Normal Negative [facility] Comment on above: Order Comment: Jose Carlos oseguera Type: BLOOD SPECIMEN [facility] Address: [address] [place] [address] Result Comment: Anti -Ribosomal RNA (Ribosomal P) antibody is used as an aid in diagnosis of systemic autoimmune diseases especially systemic lupus erythematosus and mixed connective tissue disease. Cross-reactivity with Anti-cota antibody is not uncommon. Clinical correlation is required. Test Methodology: Multiplex flow immunoassay. Performed By: #### 1 6570-4, 47839-4, 37984-4, 96688-2, 34773-0, 74662-2, 73241-1, 80164-5 #### [facility] CLIA [id number] [address] [place] [address] [place] SCL-70 extractable nuclear I gG IA Qn (S)on 01-25-2022 SCLERODERMA AB QUAL Negative Normal Negative [facility] Comment on above: Order Comment: Horacioi ana rosa Type: BLOOD SPECIMEN [facility] Address: [address] [place] [address] Performed By: #### 1 6570-4, 44196-1, 19419-7, 71042-7, 63001-3, 37233-9, 62371-5, 91945-8 #### [facility] CLIA [id number] [address] [place] [address] [place] SCLERODERMA IGG AB <0.2 Normal <1.0 [facility] Comment on above: Order Comment: Speci men Type: BLOOD SPECIMEN [facility] Address: [address] [place] [address] Result Comment: Scl- 70/Scleroderma antibody test is used as an aid in diagnosis of systemic sclerosis especially the diffuse cutaneous form. A negative result cannot rule out systemic sclerosis. The final interpretation should consider clinical picture and other test results such as anti-centromere antibody. Test Methodology: Multiplex flow immunoassay. Performed By: #### 1 6570-4, 19662-5, 40798-2, 82581-6, 27523-3, 18015-6, 85410-6, 28179-7 #### [facility] CLIA [id number] [address] [place] [address] [place] Sjogrens syndrome-A extracta ble nuclear Ab Qn (S)on 01-25-2022 SSA ANTIBODY QUAL Negative Normal Negative [facility] Comment on above: Order Comment: Speci men Type: BLOOD SPECIMEN [facility] Address: [address] [place] [address] Performed By: #### 1 6570-4, 74248-3, 54364-1, 54615-6, 49541-4, 16343-9, 40421-9, 88769-5 #### [facility] CLIA [id number] [address] [place] [address] [place] Sjogrens syndrome-B extracta ble nuclear Ab Qn (S)on 01-25-2022 SSB ANTIBODY QUAL Negative Normal Negative [facility] Comment on above: Order Comment: Jose Carlos oseguera Type: BLOOD SPECIMEN [facility] Address: [address] [place] [address] Performed By: #### 1 6570-4, 34499-8, 36118-1, 89231-7, 53064-0, 86500-6, 75961-1, 13860-9 #### [facility] CLIA [id number] [address] [place] [address] OF [facility] Cota extractable nuclear Ig G Qn (S)on 01-25-2022 SM ANTIBODY QUAL Negative Normal Negative [facility] Comment on above: Order Comment: Jose Carlos oseguera Type: BLOOD SPECIMEN Ordering Facility: [facility] Address: [address] [place] [address] Result Comment: Anti -Sm (Cota) antibody is used as an aid in diagnosis of systemic lupus erythematosus and its presence is associated with renal disease. A negative result cannot rule out systemic lupus erythematosus. Clinical correlation is required. Test Methodology: Multiplex flow immunoassay. Performed By: #### 1 6570-4, 43386-7, 23248-1, 47647-0, 50533-1, 89309-0, 66120-5, 33795-1 #### [facility] CLIA [id number] [address] [place] [address] [place] cCP IgG SerPl-aCncon 022 Cyclic citrullinated peptide IgG Qn <15 Normal <20 [facility] Comment on above: Order Comment: Jose Carlos oseguera Type: BLOOD SPECIMEN Ordering Facility: [facility] Address: [address] [place] [address] Performed By: #### 1 6570-4, 20724-9, 82944-6, 00989-3, 81002-4, 40360-4, 01587-5, 69294-5 #### [facility] CLIA [id number] [address] [place] [address] [place] XR ankle LT min 3V*on 2021 XR ankle LT min 3V* [facility] Other XR ankle LT min 3V* [facility] [employer] Other XR ankle LT min 3V* [address] [facility] [employer] Other XR ankle LT min 3V* [place] [address] [place] [employer] Other XR ankle LT min 3V* [facility] [employer] Other XR ankle LT min 3V* Signed [employer] Other XR ankle LT min 3V* Patient: Madyson Schmid MR#: [id number] [place] [employer] Other XR ankle LT min 3V* : 2000 Acct:[id number] [employer] Other XR ankle LT min 3V* Age/Sex: 20 / F ADM Date: 10/10/21 [employer] Other XR ankle LT min 3V* Loc: [facility] Room: pe: [facility] [employer] Other XR ankle LT min 3V* Attending Dr: Christina GONZALEZ [employer] Other XR ankle LT min 3V* Ordering Provider: CARLOS Santos [employer] Other XR ankle LT min 3V* Date of Service: 10/10/21 [employer] Other XR ankle LT min 3V* XR/XR ankle LT min 3V*: Acute left ankle pain [employer] Other XR ankle LT min 3V* Copies to: CARLOS Beckman [employer] Other XR ankle LT min 3V* Left ankle 10/10/2021. [employer] Other XR ankle LT min 3V* CLINICAL DATA: Left ankle pain after twisting injury. [employer] Other XR ankle LT min 3V* FINDINGS: 3 views of the left ankle were obtained. [employer] Other XR ankle LT min 3V* No acute fracture or dislocation is identified. No other bony abnormality is seen. Anterolateral [employer] Other XR ankle LT min 3V* soft tissue swelling is noted. [employer] Other XR ankle LT min 3V* X R/XR ankle LT min 3V* [employer] Other XR ankle LT min 3V* IMPRESSION: Soft tis cody swelling. No acute bony abnormality. [employer] Other XR ankle LT min 3V* Impression dictated by: Erick Cueto Jr., M.D.10/10/2021 4:24 PM [employer] Other XR ankle LT min 3V* Dictation Location: [place] [address] [employer] Other XR ankle LT min 3V* Transcribed By: MIRELLA 10/10/21 1624 [employer] Other XR ankle LT min 3V* Dictated By: Erick Cueto Jr, MD 10/10/21 1621 [employer] Other XR ankle LT min 3V* Signed By: [employer] Other XR ankle LT min 3V* 10/10/21 162 No [employer] Other Vital Signs Date Time Vital Sign Value Performing Clinician Facility 10-15-2024 16:11-0500 Body mass index (BMI) [Ratio] 38.94 kg/m2 RIDERS Work Phone: [facility] 10-15-2024 16:11-0500 Body weight 106.14 kg Osei Helena DO Work Phone: [facility] 10-15-2024 16:11-0500 Diastolic blood pressure 64 mm[Hg] Osei Helena DO Work Phone: [facility] 10-15-2024 16:11-0500 Systolic blood pressure 118 mm[Hg] Osei Helena DO Work Phone: [facility] 10-02-2024 11:43-0500 Body mass index (BMI) [Ratio] 38.44 kg/m2 Osei Helena DO Work Phone: [facility] 10-02-2024 11:43-0500 Body weight 104.78 kg Osei Helena DO Work Phone: [facility] 10-02-2024 11:43-0500 Diastolic blood pressure 72 mm[Hg] Osei Helena DO Work Phone: [facility] 10-02-2024 11:43-0500 Systolic blood pressure 118 mm[Hg] Osei Helena DO Work Phone: [facility] 09-18-2024 10:52-0500 Body mass index (BMI) [Ratio] 38.74 kg/m2 Osei Helena DO Work Phone: [facility] 09-18-2024 10:52-0500 Body weight 105.6 kg Osei Helena DO Work Phone: [facility] 09-18-2024 10:52-0500 Diastolic blood pressure 68 mm[Hg] Osei Helena DO Work Phone: [facility] 09-18-2024 10:52-0500 Systolic blood pressure 118 mm[Hg] Osei Helena DO Work Phone: [facility] 09-03-2024 15:21-0500 Body mass index (BMI) [Ratio] 37.44 kg/m2 Osei Helena DO Work Phone: [facility] 09-03-2024 15:21-0500 Body weight 102.06 kg Osei Helena DO Work Phone: [facility] 09-03-2024 15:21-0500 Diastolic blood pressure 68 mm[Hg] Osei Helena DO Work Phone: [facility] 09-03-2024 15:21-0500 Systolic blood pressure 120 mm[Hg] Osei Helena DO Work Phone: [facility] 08-27-2024 13:08-0500 Body height 165.1 cm Camilla Hemmer PA Work Phone: [facility] 08-27-2024 13:08-0500 Body mass index (BMI) [Ratio] 38.11 kg/m2 Camilla Hemmer PA Work Phone: [facility] 08-27-2024 13:08-0500 Body weight 103.87 kg Camilla Hemmer PA Work Phone: [facility] 08-27-2024 13:08-0500 Diastolic blood pressure 72 mm[Hg] Camilla Hemmer PA Work Phone: [facility] 08-27-2024 13:08-0500 Heart rate 92 /min Camilla Hemmer PA Work Phone: [facility] 08-27-2024 13:08-0500 Respiratory rate 16 /min Camilla Hemmer PA Work Phone: [facility] 08-27-2024 13:08-0500 SaO2% (BldA) [Mass fraction] 98 % Camilla Hemmer PA Work Phone: [facility] 08-27-2024 13:08-0500 Systolic blood pressure 118 mm[Hg] Camilla Hemmer PA Work Phone: [facility] 08-13-2024 09:22-0500 Body height 165.1 cm Hammad Hatch MD Work Phone: [facility] 08-13-2024 09:22-0500 Body mass index (BMI) [Ratio] 36.91 kg/m2 Hammad Hatch MD Work Phone: [facility] 08-13-2024 09:22-0500 Body weight 100.61 kg Hammad Hatch MD Work Phone: [facility] 08-05-2024 09:05-0500 Body mass index (BMI) [Ratio] 36.44 kg/m2 Flori Louies PA Work Phone: [facility] 08-05-2024 09:05-0500 Body weight 99.34 kg Lfori [place] PA Work Phone: [facility] 08-05-2024 09:05-0500 Diastolic blood pressure 68 mm[Hg] Flori [place] PA Work Phone: [facility] 08-05-2024 09:05-0500 Systolic blood pressure 110 mm[Hg] Flori Louise PA Work Phone: [facility] 07-03-2024 14:41-0400 Body mass index (BMI) [Ratio] 35.65 kg/m2 Flori Louise PA Work Phone: [facility] 07-03-2024 14:41-0400 Body weight 97.18 kg Flori [place] PA Work Phone: [facility] 07-03-2024 14:41-0400 Diastolic blood pressure 64 mm[Hg] Flori Louise PA Work Phone: [facility] 07-03-2024 14:41-0400 Systolic blood pressure 116 mm[Hg] Flori [place] PA Work Phone: [facility] 06-04-2024 15:53-0400 Body mass index (BMI) [Ratio] 35.36 kg/m2 Osei Helena DO Work Phone: [facility] 06-04-2024 15:53-0400 Body weight 96.39 kg Osei Helena DO Work Phone: [facility] 06-04-2024 15:53-0400 Diastolic blood pressure 70 mm[Hg] Osei Helena DO Work Phone: [facility] 06-04-2024 15:53-0400 Systolic blood pressure 126 mm[Hg] Osei Helena DO Work Phone: [facility] 05-23-2024 09:35-0400 Body mass index (BMI) [Ratio] 35.01 kg/m2 [facility] Nurse [facility] 05-23-2024 09:35-0400 Body weight 95.44 kg [facility] Nurse [facility] 05-20-2024 09:37-0400 Body height 165.1 cm Camilla Hemmer PA Work Phone: [facility] 05-20-2024 09:37-0400 Body mass index (BMI) [Ratio] 34.98 kg/m2 Camilla Hemmer PA Work Phone: [facility] 05-20-2024 09:37-0400 Body weight 95.35 kg Camilla Hemmer PA Work Phone: [facility] 05-20-2024 09:37-0400 Diastolic blood pressure 76 mm[Hg] Camilla Hemmer PA Work Phone: [facility] 05-20-2024 09:37-0400 Heart rate 87 /min Camilla Hemmer PA Work Phone: [facility] 05-20-2024 09:37-0400 Respiratory rate 16 /min Camilla Hemmer PA Work Phone: [facility] 05-20-2024 09:37-0400 SaO2% (BldA) [Mass fraction] 98 % Camilla Hemmer PA Work Phone: [facility] 05-20-2024 09:37-0400 Systolic blood pressure 108 mm[Hg] Camilla Hemmer PA Work Phone: [facility] 11-30-2023 09:33-0500 Body height 165.1 cm Jyoti Gallowayur PA-C Work Phone: [facility] 11-30-2023 09:33-0500 Body weight 92.99 kg Jyoti Noble PA-C Work Phone: [facility] 11-30-2023 09:33-0500 Diastolic blood pressure 79 mm[Hg] Jyoti Noble PA-C Work Phone: [facility] 11-30-2023 09:33-0500 Heart rate 84 /min Jyoti Dickey PA-C Work Phone: [facility] 11-30-2023 09:33-0500 SaO2% (BldA) [Mass fraction] 96 % Jyoti Dickey PA-C Work Phone: [facility] 11-30-2023 09:33-0500 Systolic blood pressure 118 mm[Hg] Jyoti Dickey PA-C Work Phone: [facility] 06-13-2023 12:36-0400 Body height 165.1 cm Ibis A Myra [facility] [employer] [facility] DO Work Phone: 06-13-2023 12:36-0400 Body mass index (BMI) [Ratio] 33.28 kg/m2 Ibis A Myra Work Phone: [facility] [employer] DO Work Phone: 06-13-2023 12:36-0400 Body surface area Derived from formula 1.98 m2 Ibis A Myra Work Phone: [facility] [employer] 600 DO Work Phone: 06-13-2023 12:36-0400 Body weight 90.72 kg Ibis A Myra Work Phone: [facility] [employer] [address] DO Work Phone: 06-13-2023 12:36-0400 Diastolic blood pressure 80 mm[Hg] Ibis A Myra Work Phone: [facility] [employer] [address] DO Work Phone: 06-13-2023 12:36-0400 Heart rate 76 /min Ibis A Myra Work Phone: [facility] [employer] DO Work Phone: 06-13-2023 12:36-0400 Systolic blood pressure 116 mm[Hg] Ibis A Myra Work Phone: [facility] 600 DO Work Phone: 06-08-2023 21:50-0400 Diastolic blood pressure 59 mm[Hg] 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 Ibis Myra Work Phone: [facility] 06-08-2023 21:50-0400 Heart rate 82 /min 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 Myra Work Phone: [facility] 06-08-2023 21:50-0400 Respiratory rate 18 /min 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 Myra Work Phone: [facility] 06-08-2023 21:50-0400 SaO2% (BldA) [Mass fraction] 99 % 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 Work Phone: [facility] 06-08-2023 21:50-0400 Systolic blood pressure 115 mm[Hg] 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 My[employer] Work Phone: [facility] 06-08-2023 16:35-0400 Body height 165.1 cm 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 Myra Work Phone: [facility] 06-08-2023 16:35-0400 Body temperature 97.8 [degF] 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bis Myra Work Phone: [facility] 06-08-2023 16:35-0400 Body weight 91.6 kg 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 Work Phone: [facility] 12-28-2022 15:00-0400 Body weight 89.36 kg Irvin Hanna MD Work Phone: [facility] 12-28-2022 15:00-0400 Diastolic blood pressure 86 mm[Hg] Irvin Hanna MD Work Phone: [facility] 12-28-2022 15:00-0400 Heart rate 79 /min Irvin Hanna MD Work Phone: [facility] 12-28-2022 15:00-0400 Respiratory rate 16 /min Irvin Hanna MD Work Phone: [facility] 12-28-2022 15:00-0400 Systolic blood pressure 119 mm[Hg] Irvin Hanna MD Work Phone: [facility] 10-13-2022 09:35-0500 Body height 165.1 cm Ibis A Myra Work Phone: [facility] [address] DO Work Phone: 10-13-2022 09:35-0500 Body mass index (BMI) [Ratio] 33.45 kg/m2 Ibis A Myra Work Phone: [facility] 320 DO Work Phone: 10-13-2022 09:35-0500 Body surface area Derived from formula 1.98 m2 Ibis A Myra Work Phone: [facility] [address] DO Work Phone: 10-13-2022 09:35-0500 Body weight 91.17 kg Ibis A Myra Work Phone: [facility] [address] DO Work Phone: 10-13-2022 09:35-0500 Diastolic blood pressure 70 mm[Hg] Ibis A Myra Work Phone: [facility] 320 DO Work Phone: 10-13-2022 09:35-0500 Heart rate 76 /min Ibis A Myra Work Phone: [facility] 320 DO Work Phone: 10-13-2022 09:35-0500 Systolic blood pressure 102 mm[Hg] Ibis A Myra Work Phone: [facility] [address] DO Work Phone: 09-11-2022 09:58-0500 Diastolic blood pressure 82 mm[Hg] Ibis A Myra Work Phone: [facility] 250 DO Work Phone: 09-11-2022 09:58-0500 Diastolic blood pressure 80 mm[Hg] Ibis A Myra Work Phone: [facility] 250 DO Work Phone: 09-11-2022 09:58-0500 Systolic blood pressure 112 mm[Hg] Ibis A Myra Work Phone: [facility] 250 DO Work Phone: 09-11-2022 09:58-0500 Systolic blood pressure 108 mm[Hg] Ibis A Myra Work Phone: [facility] 250 DO Work Phone: 09-11-2022 08:57-0500 Body height 165.1 cm Ibis A Myra Work Phone: [facility] 250 DO Work Phone: 09-11-2022 08:57-0500 Body mass index (BMI) [Ratio] 32.95 kg/m2 Ibis A Myra Work Phone: [facility] 250 DO Work Phone: 09-11-2022 08:57-0500 Body surface area Derived from formula 1.97 m2 Ibis A Myra Work Phone: [facility] 250 DO Work Phone: 09-11-2022 08:57-0500 Body weight 89.81 kg Ibis A Mrya Work Phone: [facility] 250 DO Work Phone: 09-11-2022 08:57-0500 Diastolic blood pressure 68 mm[Hg] Ibis A Myra Work Phone: [facility] 250 DO Work Phone: 09-11-2022 08:57-0500 Heart rate 74 /min Ibis A Myra Work Phone: [facility] 250 DO Work Phone: 09-11-2022 08:57-0500 Systolic blood pressure 102 mm[Hg] Ibis A Myra Work Phone: [facility] 250 DO Work Phone: 07-31-2022 10:14-0500 Body weight 89.81 kg Irvin Hanna MD Work Phone: [facility] 07-31-2022 10:14-0500 Diastolic blood pressure 71 mm[Hg] Irvin Hanna MD Work Phone: [facility] 07-31-2022 10:14-0500 Heart rate 92 /min Irvin Hanna MD Work Phone: [facility] 07-31-2022 10:14-0500 Systolic blood pressure 109 mm[Hg] Irvin Hanna MD Work Phone: [facility] 07-21-2022 07:27-0400 Body height 165.1 cm Ibis A Myra Work Phone: [facility] 320 DO Work Phone: 07-21-2022 07:27-0400 Body mass index (BMI) [Ratio] 33.45 kg/m2 Ibis A Myra Work Phone: [facility] 320 DO Work Phone: 07-21-2022 07:27-0400 Body surface area Derived from formula 1.98 m2 Ibis A Myra Work Phone: [facility] 320 DO Work Phone: 07-21-2022 07:27-0400 Body weight 91.17 kg Ibis A Myra Work Phone: [facility] 320 DO Work Phone: 07-21-2022 07:27-0400 Diastolic blood pressure 72 mm[Hg] Ibis A Myra Work Phone: [facility] 320 DO Work Phone: 07-21-2022 07:27-0400 Heart rate 64 /min Ibis A Myra Work Phone: [facility] 320 DO Work Phone: 07-21-2022 07:27-0400 Systolic blood pressure 106 mm[Hg] Ibis A Myra Work Phone: [facility] [address] DO Work Phone: 07-10-2022 10:45-0400 Body height 165.1 cm Ibis A Myra Work Phone: [facility] 250 DO Work Phone: 07-10-2022 10:45-0400 Body mass index (BMI) [Ratio] 32.95 kg/m2 Ibis A Myra Work Phone: [facility] 250 DO Work Phone: 07-10-2022 10:45-0400 Body surface area Derived from formula 1.97 m2 Ibis A Myra Work Phone: [facility] 250 DO Work Phone: 07-10-2022 10:45-0400 Body weight 89.81 kg Ibis A Myra Work Phone: [facility] [facility] DO Work Phone: 07-10-2022 10:45-0400 Diastolic blood pressure 70 mm[Hg] Ibis A Myra Work Phone: [facility] 250 DO Work Phone: 07-10-2022 10:45-0400 Heart rate 76 /min Ibis A Myra Work Phone: [facility] 250 DO Work Phone: 07-10-2022 10:45-0400 Systolic blood pressure 104 mm[Hg] Ibis A Myra Work Phone: [facility] 250 DO Work Phone: 06-01-2022 11:36-0400 Body height 165.1 cm 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 Ibis Myra Work Phone: [facility] 06-01-2022 11:36-0400 Body temperature 100 [degF] 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 Ibis Myra Work Phone: [facility] 06-01-2022 11:36-0400 Body weight 88.4 kg 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 Ibis Myra Work Phone: [facility] 06-01-2022 11:36-0400 Diastolic blood pressure 68 mm[Hg] 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 Ibis Myra Work Phone: [facility] 06-01-2022 11:36-0400 Heart rate 99 /min 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 Ibis Myra Work Phone: [facility] 06-01-2022 11:36-0400 Respiratory rate 18 /min 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bis Myra Work Phone: [facility] 06-01-2022 11:36-0400 SaO2% (BldA) [Mass fraction] 97 % 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 Myra Work Phone: [facility] 06-01-2022 11:36-0400 Systolic blood pressure 121 mm[Hg] 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 Ibis Myra Work Phone: [facility] 05-18-2022 09:42-0400 Body height 165.1 cm Ibis A Myra Work Phone: [facility] 250 DO Work Phone: 05-18-2022 09:42-0400 Body mass index (BMI) [Ratio] 31.95 kg/m2 Ibis A Myra Work Phone: [facility] 250 DO Work Phone: 05-18-2022 09:42-0400 Body surface area Derived from formula 1.94 m2 Ibis A Myra Work Phone: [facility] 250 DO Work Phone: 05-18-2022 09:42-0400 Body weight 87.09 kg Ibis A Myra Work Phone: [facility] 250 DO Work Phone: 05-18-2022 09:42-0400 Diastolic blood pressure 74 mm[Hg] Ibis A Myra Work Phone: [facility] 250 DO Work Phone: 05-18-2022 09:42-0400 Heart rate 72 /min Ibis A Myra Work Phone: [facility] 250 DO Work Phone: 05-18-2022 09:42-0400 Systolic blood pressure 102 mm[Hg] Ibis A Myra Work Phone: [facility] [facility] DO Work Phone: 03-23-2022 09:11-0400 Diastolic blood pressure 80 mm[Hg] Ibis A Myra Work Phone: [facility] 250 DO Work Phone: 03-23-2022 09:11-0400 Systolic blood pressure 110 mm[Hg] Ibis A Myra Work Phone: [facility] 250 DO Work Phone: 03-23-2022 09:06-0400 Body height 166.37 cm Ibis A Myra Work Phone: [facility] 250 DO Work Phone: 03-23-2022 09:06-0400 Body mass index (BMI) [Ratio] 31.3 kg/m2 Ibis A Myra Work Phone: [facility] 250 DO Work Phone: 03-23-2022 09:06-0400 Body surface area Derived from formula 1.95 m2 Ibis A Myra Work Phone: [facility] 250 DO Work Phone: 03-23-2022 09:06-0400 Body weight 86.64 kg Ibis A Myra Work Phone: [facility] [facility] DO Work Phone: 03-23-2022 09:06-0400 Diastolic blood pressure 76 mm[Hg] Ibis A Myra Work Phone: [facility] 250 DO Work Phone: 03-23-2022 09:06-0400 Heart rate 66 /min Ibis A Myra Work Phone: [facility] 250 DO Work Phone: 03-23-2022 09:06-0400 Systolic blood pressure 118 mm[Hg] Ibis A Myra Work Phone: [facility] [facility] DO Work Phone: 01-25-2022 08:16-0400 Body height 165.1 cm Irvin Hanna MD Work Phone: [facility] 01-25-2022 08:16-0400 Body weight 86.36 kg Irvin Hanna MD Work Phone: [facility] 01-25-2022 08:16-0400 Diastolic blood pressure 83 mm[Hg] Irvin Hanna MD Work Phone: [facility] 01-25-2022 08:16-0400 Heart rate 71 /min Irvin Hanna MD Work Phone: [facility] 01-25-2022 08:16-0400 Systolic blood pressure 116 mm[Hg] Irvin Hanna MD Work Phone: [facility] 01-10-2022 12:45-0400 Body height 165.1 cm Ok Mckeon Other [employer] Other 01-10-2022 12:45-0400 Body mass index (BMI) [Ratio] 31.61 kg/m2 Ok Mckeon Other [employer] Other 01-10-2022 12:45-0400 Body temperature 97.8 [degF] Ok Mckeon Other [employer] Other 01-10-2022 12:45-0400 Body weight 86.18 kg Ok Mckeon Other [employer] Other 01-10-2022 12:45-0400 Diastolic blood pressure 80 mm[Hg] Ok Mckeon Other [employer] Other 01-10-2022 12:45-0400 SaO2% (BldA) [Mass fraction] 96 % Ok Mckeon Other [employer] Other 01-10-2022 12:45-0400 Systolic blood pressure 120 mm[Hg] Ok Christyreelaine Other [employer] Other 10-10-2021 15:50-0500 Body height 165.1 cm Christina Pearce Other [employer] Other 10-10-2021 15:50-0500 Body mass index (BMI) [Ratio] 31.61 kg/m2 Christina Pearce Other [employer] Other 10-10-2021 15:50-0500 Body temperature 97 [degF] Christina Pearce Other [employer] Other 10-10-2021 15:50-0500 Body weight 86.18 kg Christina Lambmond Other [employer] Other 10-10-2021 15:50-0500 Diastolic blood pressure 76 mm[Hg] Christina Portia Other [employer] Other 10-10-2021 15:50-0500 Respiratory rate 18 /min Christina Lambmond Other [employer] Other 10-10-2021 15:50-0500 SaO2% (BldA) [Mass fraction] 99 % Christina Peacre Other [employer] Other 10-10-2021 15:50-0500 Systolic blood pressure 123 mm[Hg] Christina Portia Other [employer] Other Encounters Encounter Date Encounter Type Care Provider Facility Start: 10-17-2024 End: 10-17-2024 Orders Only Roshni Jo RN [facility] Comment on above: Dichorionic diamniot ic twin in third trimester (Primary Dx) Start: 10-16-2024 End: 10-16-2024 ambulatory OSEI MALIK [facility] Start: 10-15-2024 End: 10-15-2024 flow sheet Osei Helena DO Work Phone: [facility] Comment on above: 29 weeks gestation o f ; Third trimester ; Dichorionic diamniotic twin in second trimester Start: 10-15-2024 End: 10-15-2024 ambulatory OSEI HELENA [...] Result Encounter Osei Helena DO Work Phone: [facility] External Department Unsolicited Start: 09-25-2024 End: 09-25-2024 Clinisync Result Encounter Osei Helena DO Work Phone: [facility] External [facility] Unsolicited Start: 09-25-2024 End: 09-26-2024 Telephone encounter Osei Helena DO Work Phone: [facility] Start: 09-19-2024 End: 09-26-2024 Orders Only Chrissiemelinda Willis [facility] Comment on above: Dichorionic diamniot ic twin [...] Start: 09-02-2024 End: 09-02-2024 ambulatory JYOTI DICKEY Facility:[facility] Comment on above: POTS (postural ortho [...] encounter Marycarmen Kennedy RN [facility] Start: 08-27-2024 End: 08-27-2024 Bamboo flowsheet Camilla Garcia PA Work Phone: [facility] Start: 08-27-2024 End: 08-27-2024 Bamboo flowsheet Camilla Garcia PA Work Phone: [facility] Start: 08-27-2024 End: 08-27-2024 Telephone encounter Camilla TOLBERT Work Phone: [facility] Start: 08-27-2024 End: 08-27-2024 Office outpatient visit 15 minutes Camilla Garcia PA Work Phone: [facility] Comment on [...] Only Sammi Green RN [facility] Comment on above: Dichorionic diamniot ic twin in second trimester (Primary Dx); POTS (postural orthostatic tachycardia syndrome); Asthma during ; 20 weeks gestation of Start: 08-13-2024 End: 08-13-2024 Office outpatient new 45 minutes Muna Lenz MD Work Phone: [facility] Comment on above: Dichorionic diamniot ic twin in second trimester (Primary Dx); POTS (postural orthostatic tachycardia syndrome); Asthma during ; 20 weeks gestation of Start: 08-13-2024 End: 08-13-2024 ambulatory [facility] Start: 08-11-2024 End: 08-13-2024 Clinisync Result Encounter Generic External Data Provider [facility] External Department Unsolicited Start: 08-11-2024 End: 08-13-2024 Clinisync Result Encounter Generic External Data Provider [facility] External Department Unsolicited Start: 08-06-2024 End: 08-06-2024 ambulatory Jyoti Dickey PA-C Work Phone: Neurology Comment on above: Need to talk Start: 08-05-2024 End: 08-05-2024 Bamboo flowsheet Flori TLOBERT Work Phone: [facility] Start: 08-05-2024 [...] Start: 07-24-2024 End: 07-24-2024 ambulatory Celeste Watson Facility:[facility] Start: 07-07-2024 End: 07-07-2024 Chart abstracting Hammad Hatch MD Work Phone: Maternal- Medicine at [facility] Start: 07-03-2024 End: 07-03-2024 [...] Start: 07-02-2024 End: 07-02-2024 ambulatory Joie Seaman APRN.ENGLISH DIV[employer]AIR Work Phone: Neurology Comment on above: POTS (postural ortho static tachycardia syndrome) (Primary Dx); Near syncope Start: 07-02-2024 End: 07-02-2024 Telemedicine consultation with patient Joie Seaman APRN.ENGLISH DIV[employer] CHAIR Work Phone: Neurology Start: 06-10-2024 End: 06-11-2024 [...] 8w6d Start: 05-23-2024 End: 05-23-2024 ambulatory OSEI HELENA Not Available Start: 05-20-2024 End: 05-20-2024 Bamboo flowsheet Camilla TOLBERT Work Phone: [facility] Start: 05-20-2024 End: 05-20-2024 Bamboo flowsheet Camilla Garcia PA Work Phone: [facility] Start: 05-20-2024 End: 05-20-2024 Office outpatient visit 15 minutes Camilla Garcia PA Work Phone: [facility] Comment on above: Pain of left sacroil iac joint (Primary Dx) Start: 05-20-2024 End: 05-20-2024 ambulatory CAMILLA GARCIA Not Available Start: 04-12-2024 End: 04-12-2024 ambulatory Celeste Watson Facility:[facility] Start: 04-12-2024 End: 04-12-2024 Patient encounter procedure Celeste Watson [facility] Start: 03-25-2024 Patient encounter status Camilla TOLBERT Work Phone: [facility] Start: 03-25-2024 End: 03-25-2024 ambulatory JB MANDUJANO Not Available Start: 03-20-2024 End: 03-20-2024 ambulatory Jyoti Dickey PA-C Work Phone: Neurology Comment on above: POTS (postural ortho static tachycardia syndrome) (Primary Dx) Start: 03-20-2024 End: 03-20-2024 Telemedicine consultation with patient Jyoti Dickey PA-C Work Phone: Neurology Start: 03-14-2024 End: 03-14-2024 ambulatory Celeste Watson Facility:[facility] Start: 03-14-2024 End: 03-14-2024 Patient encounter procedure Celeste Shirley [facility] Start: 02-26-2024 End: 02-26-2024 ambulatory AILEENLINNETTE Charlton NAZIA Not Available Start: 01-22-2024 ambulatory CONVEYOR LOADER Krista L Mae Facil ity: [facility] Start: 01-01-2024 End: 01-01-2024 ambulatory CELESTE E RINKES Not Available Start: 12-21-2023 End: 12-21-2023 ambulatory OSEI DANIELSO Not Available Start: 12-11-2023 End: 12-11-2023 ambulatory CONVEYOR LOADER Krista L Mae Facility: [facility] Start: 12-11-2023 End: 12-11-2023 ambulatory CELESTE E RINKES Not Available Start: 11-30-2023 End: 11-30-2023 ambulatory AURORAENRIKE SANTIAGO Facility:[facility] Start: 11-30-2023 End: 11-30-2023 Patient encounter procedure Jyoti Dickey PA-C Work Phone: Neurology Comment on above: POTS (postural ortho static tachycardia syndrome) (Primary Dx) Start: 11-12-2023 End: 11-12-2023 Patient encounter procedure Autonomic 2 Neur Main [facility] Start: 11-12-2023 End: 11-12-2023 ambulatory AURORA SANTIAGO Neurology Comment on above: Procedure Start: 10-10-2023 End: 10-10-2023 ambulatory AURORA SANTIAGO Facility:[facility] Start: 07-24-2023 End: 07-24-2023 ambulatory Jocelin FELIX Facility:[facility] Start: 07-20-2023 Telephone encounter Arin Tinajero RN [facility] Comment on above: Referral Follow-up Start: 07-10-2023 End: 07-10-2023 ambulatory JOSE ARMANDO GREY Facility:[facility] Start: 07-10-2023 End: 07-10-2023 Office outpatient new 30 minutes Jose Armando Gardunoin DO Work Phone: Orthopaedics [place] Comment on above: Chronic pain of righ t knee (Primary Dx); Tendinopathy of gluteal region Start: 07-06-2023 Orders Only Jose Armando Grey DO Work Phone: Orthopaedics Comment on above: Right knee pain, uns pecified chronicity (Primary Dx) Start: 07-05-2023 End: 07-05-2023 ambulatory 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 Ibis Arenasncer Work Phone: [facility] Work Phone: Start: 07-05-2023 End: 07-05-2023 Patient encounter procedure 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 Ibis Limer Work Phone: [facility]-Flu Vaccine Start: 06-13-2023 Office outpatient vi sit 15 minutes Ibis Limer Work Phone: -[facility] Heart-[place] 600 DO Work Phone: Start: 06-13-2023 ambulatory Tabatha Cota Facility:[id number] Start: 06-08-2023 End: 06-08-2023 Emergency department patient visit 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 Ibis Limer Work Phone: [facility]-Emergency Room Work Phone: Start: 04-25-2023 End: 04-25-2023 ambulatory 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 Ibis Arenasncer Work Phone: [facility] Work Phone: Start: 04-25-2023 End: 04-25-2023 Departed Referred 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 Ibis Arenasncer Work Phone: [facility]-Corporate Health [address] Work Phone: Start: 03-14-2023 ambulatory CHAN MUÑIZ Fa cility:[facility] Start: 01-18-2023 End: 01-18-2023 ambulatory 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 Ibis Limer Work Phone: [facility] Work Phone: Start: 01-18-2023 End: 01-18-2023 Departed Referred 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 Ibis Limer Work Phone: [facility]por[facility] [address] Work Phone: Start: 12-28-2022 End: 12-28-2022 Patient encounter procedure Irvin Hanna MD Work Phone: Rheumatology Comment on above: Pain and swelling of knee, right (Primary Dx); Joint stiffness Start: 10-31-2022 Chart Update Ibis Ely cer Work Phone: [facility] 250 DO Work Phone: Start: 10-16-[address] Melodie Alfonso ty: Start: 10-13-2022 Current tobacco non- user cad cap copd pv dm Ibis Ellis Myra Work Phone: [facility]-[place] 320 DO Work Phone: Start: 10-13-[address] Annalee Maza F acility: Start: 09-11-2022 Office outpatient vi sit 15 minutes Ibis Limer Work Phone: [facility]-[place] 250 DO Work Phone: Start: 09-11-2022 Patient encounter procedure Ibis Renteria Work Phone: [facility] 250 DO Work Phone: Start: 09-11-[address] Melodie Alfonso ty: Start: 09-07-2022 Telephone encounter Ibis Renteria Work Phone: [facility]-[place] 320 DO Work Phone: Start: 08-27-[address] Annalee Pierre acility: Start: 08-01-2022 AUDIT Ibis Arenasn cer Work Phone: [facility] 320 DO Work Phone: Start: 07-31-2022 EVENT EZEKIEL, Provider : HERIBERTO SERRANO CASH MANAGEMENT CLERK 1,[id number], Status: Pen, Time: 11:00 AM Ibis Renteria Work Phone: [facility] 250 DO Work Phone: Start: 07-31-[address] Annalee Pierre acility: Start: 07-31-2022 End: 07-31-2022 Patient encounter procedure Irvin Hanna MD Work Phone: Rheumatology Comment on above: Pain and swelling of knee, right (Primary Dx); Joint stiffness; Inflammatory arthritis Start: 07-26-2022 ambulatory IBIS RENTERIA Facilit y:[facility] Start: 07-21-2022 Current tobacco non- user cad cap copd pv dm Ibis Ellis Myra Work Phone: [facility] DO Work Phone: Start: 07-21-[address] Annalee Pierre acility: Start: 07-10-2022 Office outpatient vi sit 25 minutes Ibis A Myra Work Phone: [facility]-[place] 250 DO Work Phone: Start: 07-10-2022 Patient encounter procedure Ibis Renteria Work Phone: [facility] 250 DO Work Phone: Start: 07-10-[address] Melodie Alfonso ty: Start: 06-15-2022 Telephone encounter Ibis Ellis Myra Work Phone: [facility] 250 DO Work Phone: Start: 06-12-2022 End: 06-12-[address] Annalee Maza Facility:[id number] Start: 06-05-2022 Patient encounter procedure Ibis A Myra Work Phone: [id number] [place] 5 Work Phone: Start: 06-01-2022 End: 06-01-2022 Emergency department patient visit 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 Ibis Myra Work Phone: [facility]-Emergency Room Start: 05-18-2022 Office outpatient vi sit 25 minutes Ibis A Myra Work Phone: [facility] 250 DO Work Phone: Start: 05-18-2022 Patient encounter procedure Ibis A Myra Work Phone: [facility] 250 DO Work Phone: Start: 05-08-2022 End: 05-08-2022 Patient encounter procedure 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 Ibis Myra Work Phone: [facility]-Respiratory Therapy Start: 05-03-2022 Result Review Ibis A Spen cer Work Phone: [facility] 250 DO Work Phone: Start: 05-03-2022 SURGNONUH, Provider: María Elena Freire, Status: Pen, Time: 10:00 AM Ibis Rhonda Myra Work Phone: [facility] 250 DO Work Phone: Start: 05-03-2022 End: 05-03-2022 Patient encounter procedure 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 Ibis Myra Work Phone: [facility] Start: 03-28-2022 EVENT EZEKIEL, Provider : HERIBERTO SINGH CASH MANAGEMENT CLERK 1,[id number], Status: Pen, Time: 8:00 AM Ibis A Myra Work Phone: [facility] 250 DO Work Phone: Start: 03-28-2022 Patient encounter procedure Ibis A Myra Work Phone: [facility] 250 DO Work Phone: Start: 03-26-2022 Chart Update Ibis A Spen cer Work Phone: [facility]-[place] 250 DO Work Phone: Start: 03-24-2022 End: 03-24-2022 Patient encounter procedure 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 Ibis Myra Work Phone: [facility]-Lab [facility] Start: 03-23-2022 Office consultation new/estab patient 60 min Ibis A Myra Work Phone: [facility] 250 DO Work Phone: Start: 03-23-2022 Office outpatient ne w 45 minutes Ibis A Myra Work Phone: [facility] Work Phone: Start: 02-02-2022 Telephone encounter Irvin shannon MD Work Phone: Rheumatology Comment on above: Orders Start: 01-25-2022 End: 01-25-2022 Patient encounter procedure Irvin Hanna MD Work Phone: Rheumatology Comment on above: Pain and swelling of knee, right (Primary Dx); Joint stiffness Start: 01-10-2022 End: 01-10-2022 ambulatory Ok Mckeno Other [employer] Other Start: 01-10-2022 Office outpatient ne w 45 minutes Ok Mckeon [facility] Vascular Surgery Start: 10-10-2021 End: 10-10-2021 ambulatory Christina Pearce Other [facility] [employer] Other Start: 10-10-2021 Office outpatient vi sit 15 minutes Christina Pearce [facility] Procedures Date Procedure Procedure Detail Performing Clinician Start: 10-15-2024 Urnls dip stick/tabl et rgnt non-auto w/o micrscp Osei Helena DO Work Phone: Start: 10-02-2024 Urnls dip stick/tabl et rgnt non-auto w/o micrscp Osei Helena DO Work Phone: Start: 09-25-2024 TBH UA (CLEAN/CATCH) SPREAD CUTTER/MICRO IF IND. Osei Helena DO Work Phone: Start: 09-18-2024 Urnls dip stick/tabl et rgnt non-auto w/o micrscp Osei Helena DO Work Phone: Start: 09-03-2024 Urnls dip stick/tabl et rgnt non-auto w/o micrscp Osei Helena DO Work Phone: Start: 09-01-2024 GLUCOSE TOLERANCE 3 HOUR Osei Helena DO Work Phone: Start: 08-20-2024 ALL CBC WITH AUTO DIFF Osei Helena DO Work Phone: Start: 08-13-2024 Us preg uterus after 1st trimest 09/24 gestation Osei Helena DO Work Phone: Start: 08-11-2024 AFP, SERUM, OPEN SPI NA BIFIDA Flori TOLBERT Work Phone: Start: 08-05-2024 RECURRENT VAGINITIS (HTRX) Flori TOLBERT Work Phone: Start: 08-05-2024 Urnls dip stick/tabl et rgnt non-auto w/o micrscp Flori TOLBERT Work Phone: Start: 08-05-2024 IGP,APTIMA HPV,AGE GDLN Generic External Data Provider Start: 08-05-2024 Microscopic observat ion [Identifier] in Cervix by Cyto stain Chrissie Willis HARBOR DEPARTMENT MANAGER Start: 07-03-2024 Urnls dip stick/tabl et rgnt non-auto w/o micrscp Flori Gil PA Work Phone: Start: 06-04-2024 Urnls dip stick/tabl et rgnt non-auto w/o micrscp Osei Helena DO Work Phone: Start: 05-24-2024 Blood count complete automated Not In System Ref Prov Start: 05-24-2024 ALL CBC WITH AUTO DIFF Osei Helena DO Work Phone: Start: 05-23-2024 End: 05-23-2024 Urnls dip stick/tablet rgnt non-auto w/o micrscp Osei Helena DO Work Phone: Start: 07-10-2023 [facility] Pr ovider Historical Start: 06-08-2023 Plain chest X-ray 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 Ibis Myra Work Phone: Start: 01-18-2023 Plain chest X-ray 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 Ibis Myra Work Phone: Start: 05-03-2022 Plain chest X-ray 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 Ibis Myra Work Phone: Start: 08-05-2021 Arthroscopy of knee Lorna Watson Arthroscopy of knee Ibis A Myra Work Phone: Cryotherapy of warts Rajeev Watson Extraction of wisdom tooth Ibis A Myra Work Phone: SARS-CoV-2, Influenz a & RSV (PCR) 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 Ibis Myra Work Phone: Tonsillectomy and adenoidectomy Ibis A Myra Work Phone: Tonsillectomy and adenoidectomy Celeste Michelleradha NEGATED: Highlighted row has not occurred! Total colonoscopy Ibis Renteria Work Phone: Plan of Treatment Date Care Activity Detail Author Start: 03-25-2034 DTaP,Tdap and Td Vac cines (8 - Td or Tdap) DTaP,Tdap and Td Vaccines (8 - Td or Tdap) [facility] Start: 03-25-2034 Urine microalbumin profile DTaP,Tdap,Td Vaccine (8 - Td or Tdap) [facility] Start: 08-05-2027 Screening for malign ant neoplasm of cervix [facility] Start: 10-17-2025 End: 10-17-2025 US MFM with or without consult US MFM with or without consult Imaging Routine Dichorionic diamniotic twin in third trimester Expected: 10/17/2025 (Approximate), Expires: 10/17/2025 [employer] Work Phone: Comment on above: Expected: 10/17/2025 (Approximate), Expires: 10/17/2025 Start: 09-19-2025 End: 09-19-2025 US MFM with or without consult US MFM with or without consult Imaging Routine Dichorionic diamniotic twin in second trimester Expected: 09/19/2025 (Approximate), Expires: 09/19/2025 [employer] Work Phone: Comment on above: Expected: 09/19/2025 (Approximate), Expires: 09/19/2025 Start: 08-15-2025 End: 08-15-2025 US MFM with or without consult US MFM with or without consult Imaging Routine Dichorionic diamniotic twin in second trimester POTS (postural orthostatic tachycardia syndrome) Asthma during 20 weeks gestation of Expected: 08/15/2025 (Approximate), Expires: 08/15/2025 [employer] Work Phone: Comment on above: Expected: 08/15/2025 (Approximate), Expires: 08/15/2025 Start: 08-13-2025 Adult BMI Screening [facility] Start: 08-13-2025 Tobacco Screening Tobacco Screening [facility] Start: 11-12-2024 End: 11-12-2024 Patient encounter procedure 11/12/2024 9:30 AM EST Appointment [facility] Imaging [address] [place] [address] [facility] Start: 10-29-2024 End: 10-29-2024 Patient encounter procedure 10/29/2024 3:50 PM EST Routine [facility] [address] [place] [phone] Osei Malik, DO [address] [place] [address] [facility] Start: 10-16-2024 End: 10-16-2024 Patient encounter procedure 10/16/2024 1:00 PM EST Appointment [facility] [address] [place] [address] [facility] Start: 10-15-2024 End: 10-15-2024 Patient encounter procedure [facility] Comment on above: Arrived Start: 10-15-2024 End: 10-15-2025 US biophysical profile w non stress test US biophysical profile w non stress test Imaging Routine Dichorionic diamniotic twin in second trimester Expected: 10/15/2024 (Approximate), Expires: 10/15/2025 [facility] Work Phone: Comment on above: Expected: 10/15/2024 (Approximate), Expires: 10/15/2025 Start: 10-02-2024 End: 10-02-2024 Patient encounter procedure 10/02/2024 11:00 AM EST Routine [facility] [address] [place] [id number] Osei Malik, DO [address] [place] [address] [facility] Start: 09-23-2024 End: 09-23-2024 Patient encounter procedure 09/23/2024 1:00 PM EST Appointment [facility] - Ultrasound [address] [address] [facility] - Ultrasound Start: 09-19-2024 End: 09-19-2024 Patient encounter procedure 09/19/2024 9:30 AM EST Appointment [facility] Imaging [address] [place] [address] [facility] Start: 09-18-2024 End: 09-18-2024 Patient encounter procedure [facility] Comment on above: Arrived Start: 09-03-2024 End: 09-03-2024 Patient encounter procedure [facility] Comment on above: Arrived Start: 09-02-2024 End: 09-02-2024 ambulatory 09/02/2024 12:15 PM EST [facility] [address] [place] [address] Jyoti Dickey PA-C [address] [place] [address] F/u Neurology Comment on above: F/u Start: 09-02-2024 End: 09-02-2024 ambulatory 09/02/2024 10:45 AM EST [facility] [address] [place] [address] Jyoti Dickey PA-C [address] [place] [address] F/u Neurology Comment on above: F/u Start: 08-27-2024 End: 08-27-2024 Patient encounter procedure 08/27/2024 1:00 PM EST Office Visit [facility] [address] [facility] [address] [place] [address] Camilla Garcia PA [address] [facility] [address] [place] [address] Arrived [facility] Comment on above: Arrived Start: 08-13-2024 End: 08-13-2024 Patient encounter procedure [facility] Start: 08-05-2024 End: 02-02-2025 Alpha fetoprotein, maternal Alpha fetoprotein, maternal Lab Routine Second trimester Expected: 08/05/2024 (Approximate), Expires: 02/02/2025 [facility] Comment on above: Expected: 08/05/2024 (Approximate), Expires: 02/02/2025 Start: 08-05-2024 End: 08-05-2024 Patient encounter procedure 08/05/2024 8:50 AM EST Routine [facility] [address] [place] [phone] Osei Malik DO [address] [facility] [place] [address] [facility] Start: 07-03-2024 End: 07-03-2024 Patient encounter procedure [facility] Comment on above: Arrived Start: 06-04-2024 End: 06-04-2024 Patient encounter procedure [facility] Comment on above: Arrived Start: 05-25-2024 Covid-19 Vaccine ( season) Covid-19 Vaccine ( season) [facility] Start: 05-25-2024 Covid-19 Vaccine ( season) Covid-19 Vaccine ( season) [facility] Start: 05-25-2024 Influenza vaccination C [facility] Start: 05-23-2024 End: 05-23-2025 ABO/Rh ABO/Rh Lab Routine Missed menses Expected: 05/23/2024 (Approximate), Expires: 05/23/2025 [facility] Comment on above: Expected: 05/23/2024 (Approximate), Expires: 05/23/2025 Start: 05-23-2024 End: 05-23-2025 Blood type and Indirect antibody screen panel - Blood Type and screen Lab Routine Missed menses Expected: 05/23/2024 (Approximate), Expires: 05/23/2025 [facility] Work Phone: Comment on above: Expected: 05/23/2024 (Approximate), Expires: 05/23/2025 Start: 05-23-2024 End: 05-23-2025 US Pelvis transvaginal US OB transvaginal Imaging Routine Missed menses Expected: 05/23/2024 (Approximate), Expires: 05/23/2025 [facility] Comment on above: Expected: 05/23/2024 (Approximate), Expires: 05/23/2025 Start: 05-23-2024 End: 05-23-2024 ambulatory 05/23/2024 9:00 AM EDT Initial [facility] [address] [facility] [address] [facility] Start: 05-23-2024 End: 05-23-2024 Professional / ancillary services management 05/23/2024 8:30 AM EDT Ancillary Procedure [facility] [address] [place] [address] [facility] Start: 05-20-2024 End: 05-20-2024 Patient encounter procedure 05/20/2024 9:30 AM EDT Office Visit [facility] [address] [facility] [address] [place] [address] Camilla Garcia PA [address] [facility] [address] [place], [place] [id number] Arrived [facility] Comment on above: Arrived Start: 04-20-2024 Urine microalbumin profile DTaP,Tdap,Td Vaccine (7 - Td or Tdap) [facility] Start: 09-24-2023 Depression Assessment Depression Ass essment [facility] Start: 05-25-2023 Covid-19 Vaccine ( season) Covid-19 Vaccine ( season) [facility] Start: 05-25-2023 Influenza vaccination C [facility] Start: 04-25-2023 [facility] Start: 04-06-2023 FUV, Provider: Annalee Maza, Status: Pen, Time: 2:40 PM FUV, Provider: Annalee Maza, Status: Pen, Time: 2:40 PM -[facility] 320 DO Work Phone: Start: 2022 PAP TESTING PAP TESTING [facility] Start: 2022 Screening for malign ant neoplasm of cervix [facility] Start: 10-13-2022 FUV, Provider: Annalee Maza, Status: Pen, Time: 9:20 AM FUV, Provider: Annalee Maza, Status: Pen, Time: 9:20 AM [facility] 320 DO Work Phone: Start: 09-24-2022 DEPRESSION ASSESSMENT DEPRESSION ASS ESSMENT [facility] Start: 09-11-2022 FUV, Provider: Melodie Alcaraz, Status: Pen, Time: 9:30 AM FUV, Provider: Melodie Alcaraz, Status: Pen, Time: 9:30 AM [facility] 250 DO Work Phone: Start: 09-11-2022 EVENT EZEKIEL, Provider : HERIBERTO SINGH CASH MANAGEMENT CLERK 1,[id number], Status: Pen, Time: 8:30 AM EVENT EZEKIEL, Provider: HERIBERTO SINGH CASH MANAGEMENT CLERK 1,[id number], Status: Pen, Time: 8:30 AM [facility] 320 DO Work Phone: Start: 08-14-2022 EVENT EZEKIEL, Provider : HERIBERTO LEMON CASH MANAGEMENT CLERK 1,[id number], Status: Pen, Time: 10:00 AM EVENT EZEKIEL, Provider: HERIBERTO LEMON CASH MANAGEMENT CLERK 1,[id number], Status: Pen, Time: 10:00 AM [facility] 250 DO Work Phone: Start: 07-21-2022 NPVRFRL, Provider: Annalee Maza, Status: Pen, Time: 7:20 AM NPVRFRL, Provider: Annalee Maza, Status: Pen, Time: 7:20 AM -[facility] 250 DO Work Phone: Start: 07-10-2022 FUV, Provider: Melodie Alcaraz, Status: Pen, Time: 10:45 AM FUV, Provider: Melodie Alcaraz, Status: Pen, Time: 10:45 AM -[facility] 250 DO Work Phone: Start: 06-05-2022 [facility], Provider: Annalee Maza, Status: Pen, Time: 10:[address] [facility], Provider: Annalee Maza, Status: Pen, Time: 10:00 AM -[facility] 250 DO Work Phone: Start: 05-25-2022 Influenza vaccination [facility] Start: 05-18-2022 FUV, Provider: Melodie Alcaraz, Status: Pen, Time: 9:15 AM FUV, Provider: Melodie Alcaraz, Status: Pen, Time: 9:15 AM -[facility] 250 DO Work Phone: Start: 05-08-2022 End: 05-08-2022 Patient encounter procedure Departed [facility] Ctr-Respiratory Therapy Start: 05-03-2022 SURGNONUH, Provider: María Elena Freire, Status: Pen, Time: 10:00 AM SURGNONUH, Provider: María Elena Freire, Status: Pen, Time: 10:00 AM -[facility] 250 DO Work Phone: Start: 03-28-2022 EVENT EZEKIEL, Provider : HERIBERTO SNIGH CASH MANAGEMENT CLERK 1,[id number], Status: Pen, Time: 8:00 AM EVENT EZEKIEL, Provider: HERIBERTO SINGH CASH MANAGEMENT CLERK 1,[id number], Status: Pen, Time: 8:00 AM -[facility] 250 DO Work Phone: Start: 01-25-2022 End: 03-27-2022 Chronic hepatitis differentiation between hepatitis B and C virus panel - Serum or Plasma [facility] Work Phone: Comment on above: Expected: 01/25/2022 , Expires: 03/27/2022 Start: 01-25-2022 End: 03-27-2022 Complement C1 esterase inhibitor [Mass/volume] in Serum or Plasma [facility] Work Phone: Comment on above: Expected: 01/25/2022 , Expires: 03/27/2022 Start: 01-25-2022 End: 03-27-2022 Complement C2 [Mass/volume] in Serum or Plasma [facility] Work Phone: Comment on above: Expected: 01/25/2022 , Expires: 03/27/2022 Start: 09-24-2021 DEPRESSION ASSESSMENT DEPRESSION ASS ESSMENT [facility] Start: 06-16-2021 COVID-19 VACCINE (3 - Booster for Pfizer series) COVID-19 VACCINE (3 - Booster for Pfizer series) [facility] Start: 03-11-2021 COVID-19 VACCINE (3 - Booster for Pfizer series) COVID-19 VACCINE (3 - Booster for Pfizer series) [facility] Start: 02-11-2021 COVID-19 VACCINE (3 - Pfizer risk series) COVID-19 VACCINE (3 - Pfizer risk series) [facility] Start: 2020 SHINGRIX VACCINE (1 of 2) VANG GRIX VACCINE (1 of 2) [facility] Start: 2020 Urine microalbumin profile [facility] Start: 12-03-2019 Adult BMI Follow Up Plan Adult BMI Follow Up Plan [facility] Start: 12-03-2019 Adult BMI Screening Adult BMI Screen ing [facility] Start: 12-03-2019 Anxiety Screening Anxiety Screening [facility] Start: 12-03-2019 CHLAMYDIA SCREENING (18-24) CHLAMYDIA SCREENING (18-24) [facility] Start: 12-03-2019 Depression Screening Depression Scre ening [facility] Start: 12-03-2019 GC (GONORRHEA) SCREE NINI (18-24) GC (GONORRHEA) SCREENING (18-24) [facility] Start: 12-03-2019 HEPATITIS C SCREENING HEPATITIS C SC REENING [facility] Start: 12-03-2019 HIV SCREENING HIV SCREENING [facility] Start: 12-03-2019 HIV screening HIV Screening [facility] Start: 12-03-2019 Screening for Chlamy taylor trachomatis Chlamydia Screening (18-24) [facility] Start: 2017 Meningococcal B Vacc ine: Consider Based On Risk (1 of 2 - Patient Seeks Protection) Meningococcal B Vaccine: Consider Based On Risk (1 of 2 - Patient Seeks Protection) [facility] Start: 12-03-2015 PEDS TO ADULT TRANSI TION ANNUAL ASSESSMENT PEDS TO ADULT TRANSITION ANNUAL ASSESSMENT [facility] Start: 2013 Adult depression screening assessment DEPRESSION SCREENING [facility] Start: 2013 PEDS TO ADULT TRANSI TION INITIAL DISCUSSION PEDS TO ADULT TRANSITION INITIAL DISCUSSION [facility] Start: 2013 Tobacco Screening Tobacco Screening [facility] Start: 2012 HPV VACCINE (1 - 2-d ose series) HPV VACCINE (1 - 2-dose series) [facility] Start: 12-03-2011 MENINGOCOCCAL B: 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 based on risk (1 of 2 - Risk Bexsero 2-dose series) MENINGOCOCCAL B: Consider based on risk (1 of 2 - Risk Bexsero 2-dose series) [facility] Start: 2010 HPV Vaccine (1 - 2-d ose series) HPV Vaccine (1 - 2-dose series) [facility] Start: 2010 HPV VACCINES (1 - 2- dose series) HPV VACCINES (1 - 2-dose series) [facility] Start: 2008 DTaP/Tdap/Td VACCINE S (1 - Tdap) DTaP/Tdap/Td VACCINES (1 - Tdap) [facility] Start: 12-03-2007 PNEUMOCOCCAL (1 - PCV) PNEUMOCOCCAL (1 - PCV) [facility] Start: 2002 MMR VACCINES (1 of 1 - Standard series) MMR VACCINES (1 of 1 - Standard series) [facility] Start: 2002 VARICELLA VACCINES ( 1 of 2 - 2-dose childhood series) VARICELLA VACCINES (1 of 2 - 2-dose childhood series) [facility] Start: 06-04-2002 COVID-19 Vaccine (#1) COVID-19 Vacci ne (#1) [facility] Start: 2001 HEPATITIS B (1 of 3 - 3-dose series) HEPATITIS B (1 of 3 - 3-dose series) [facility] Start: 2001 Hepatitis B Vaccine (1 of 3 - 3-dose series) Hepatitis B Vaccine (1 of 3 - 3-dose series) [facility] Start: 2001 HEPATITIS B VACCINES (1 of 3 - 3-dose series) HEPATITIS B VACCINES (1 of 3 - 3-dose series) [facility] Start: 2001 Screening for Chlamy taylor trachomatis Chlamydia Screening [facility] Bacteria identified in Urine by Culture Urine culture Microbiology Routine Missed menses Ordered: 05/23/2024 [facility] Comment on above: Ordered: 05/23/2024 CBC W Auto Different ial panel - Blood CBC and differential Lab Routine Missed menses Ordered: 05/23/2024 [facility] Comment on above: Ordered: 05/23/2024 CHLAMYDIA TRACHOMATI S (GENITO/STI) CHLAMYDIA TRACHOMATIS (GENITO/STI) Lab Routine STD exposure Ordered: 08/05/2024 [facility] Comment on above: Ordered: 08/05/2024 Cytology Cervical or vaginal smear or scraping study Pap Smear Pathology and Cytology Routine Well woman exam with routine gynecological exam Ordered: 08/05/2024 [facility] Comment on above: Ordered: 08/05/2024 Hemoglobin A1c/Hemoglobin.total in Blood Hemoglobin A1c Lab Routine Missed menses Ordered: 05/23/2024 [facility] Comment on above: Ordered: 05/23/2024 Hepatitis B virus ramirez rface Ag [Presence] in Serum or Plasma by Immunoassay Hepatitis B surface antigen Lab Routine Missed menses Ordered: 05/23/2024 [facility] Comment on above: Ordered: 05/23/2024 Hepatitis C virus Ab [Presence] in Serum or Plasma by Immunoassay Hepatitis C antibody Lab Routine Missed menses Ordered: 05/23/2024 [facility] Comment on above: Ordered: 05/23/2024 HIV-1/HIV-2 antigen/antibody combination immunoassay HIV-1 and HIV-2 antibodies Lab Routine Missed menses Ordered: 05/23/2024 [facility] Comment on above: Ordered: 05/23/2024 Neisseria gonorrhoea e DNA [Presence] in Unspecified specimen by PERFECTO with probe detection Neisseria gonorrhea DNA probe, direct Lab Routine STD exposure Ordered: 08/05/2024 [facility] Comment on above: Ordered: 08/05/2024 Patient Education [facility] Work Phone: Patient referral [facility] Work Phone: Reagin Ab [Presence] in Serum by RPR RPR Lab Routine Missed menses Ordered: 05/23/2024 [facility] Comment on above: Ordered: 05/23/2024 Rubella antibody, IgG Rubella an tibody, IgG Lab Routine Missed menses Ordered: 05/23/2024 [facility] Comment on above: Ordered: 05/23/2024 SURESWAB(R) ADVANCED VAGINITIS PLUS, TMA SURESWAB(R) ADVANCED VAGINITIS PLUS, TMA Pathology and Cytology Routine Vaginal discharge Ordered: 08/05/2024 [facility] Work Phone: Comment on above: Ordered: 08/05/2024 End: 08-04-2024 XR KNEE GENERAL 4V AP BOTH/PA BOTH/LAT/MERC RIGHT XR KNEE GENERAL 4V AP BOTH/PA BOTH/LAT/MERC RIGHT Radiology Routine Right knee pain, unspecified chronicity 1 Occurrences starting 07/06/2023 until 08/04/2024 [facility] Work Phone: Comment on above: 1 Occurrences starti ng 07/06/2023 until 08/04/2024 [facility] Immunizations Immunization Date Immunization Notes Care Provider Fa [facility] 07-24-2024 influenza, seasonal, injectable, preservative free Camilla TOLBERT Work Phone: [facility] Work Phone: 03-25-2024 tetanus toxoid, redu richar diphtheria toxoid, and acellular pertussis vaccine, adsorbed Camilla TOLBERT Work Phone: [facility] 07-05-2023 influenza virus vaccine, unspecified formulation Celeste Watson [facility] 07-05-2023 influenza, injectabl e, quadrivalent, preservative free Camilla TOLBERT Work Phone: [facility] 01-14-2021 Pfizer[employer] Materials CorporationBioNTech COVID-19 Vacc 30 MCG/0.3ML Intramuscular Suspension Ibis A Myra Work Phone: [facility] Comment on above: Result Comment: 2023: TPVAL 12-24-2020 Pfizer-BioNTech COVID-19 Vacc 30 MCG/0.3ML Intramuscular Suspension Ibis A Myra Work Phone: [facility] Comment on above: Result Comment: 2023: TPVAL 12-11-2017 meningococcal polysaccharide (groups A, C, Y and W-135) diphtheria toxoid conjugate vaccine (MCV4P) Christina Portia Other [facility] [employer] Other 12-11-2017 meningococcal ACWY vaccine, unspecified formulation Celeste Watson [facility] 11-06-2014 human papilloma viru s vaccine, quadrivalent Christina Portia Other [employer] Other 11-06-2014 HPV, unspecified formulation Ibis A Myra Work Phone: [facility] 250 DO Work Phone: 06-26-2014 HPV, unspecified formulation Celeste Watson [facility] 06-26-2014 human papilloma viru s vaccine, quadrivalent Christina Portia Other [employer] Other 04-20-2014 human papilloma viru s vaccine, quadrivalent Christina Portia Other [employer] Other 04-20-2014 meningococcal polysaccharide (groups A, C, Y and W-135) diphtheria toxoid conjugate vaccine (MCV4P) Christina Portia Other [employer] Other 04-20-2014 tetanus toxoid, redu richar diphtheria toxoid, and acellular pertussis vaccine, adsorbed Christina Portia Other [facility] 04-20-2014 HPV, unspecified formulation Celeste [employer] [facility] 04-20-2014 meningococcal ACWY vaccine, unspecified formulation Celeste [employer] [facility] 12-27-2006 diphtheria, tetanus toxoids and acellular pertussis vaccine, unspecified formulation Ibis [employer] Myra Work Phone: [facility] [employer] DO Work Phone: 12-27-2006 DTaP, unspecified formulation Celeste [employer] [facility] 12-27-2006 measles, mumps, rubella, and varicella virus vaccine Ibis A Myra Work Phone: [facility] 12-27-2006 poliovirus vaccine, inactivated Ibis [employer] Myra Work Phone: [facility] [employer] DO Work Phone: 12-27-2006 poliovirus vaccine, unspecified formulation Celeste [employer] [facility] 02-06-2003 diphtheria, tetanus toxoids and acellular pertussis vaccine, unspecified formulation [employer]bis [employer] Myra Work Phone: [facility] [employer] DO Work Phone: 02-06-2003 DTaP, unspecified formulation Celeste [employer] [facility] 02-06-2003 haemophilus influenz ae type b vaccine, conjugate unspecified formulation [employer] Myra Work Phone: [facility] 250 DO Work Phone: 02-06-2003 Hib, unspecified formulation Celeste [employer] [facility] 02-06-2003 measles, mumps and rubella virus vaccine Ibis [employer] Myra Work Phone: [facility] 02-06-2003 varicella virus vaccine Susan ica A Myra Work Phone: [facility] 07-02-2002 diphtheria, tetanus toxoids and acellular pertussis vaccine, unspecified formulation [employer] My[employer] Work Phone: [facility] DO Work Phone: 07-02-2002 DTaP, unspecified formulation Celeste [employer] [facility] 07-02-2002 haemophilus influenz ae type b vaccine, conjugate unspecified formulation [employer] Work Phone: [facility] 250 DO Work Phone: 07-02-2002 Hib, unspecified formulation Celeste [employer] [facility] 07-02-2002 pneumococcal conjuga te vaccine, 7 valent Ibis A Myra Work Phone: [facility] 250 DO Work Phone: 07-02-2002 poliovirus vaccine, inactivated Ibis A Myra Work Phone: [facility] DO Work Phone: 07-02-2002 poliovirus vaccine, unspecified formulation [employer] [facility] 05-19-2002 diphtheria, tetanus toxoids and acellular pertussis vaccine, unspecified formulation Ibis A Myra Work Phone: [facility] DO Work Phone: 05-19-2002 DTaP, unspecified formulation Celeste [employer] [facility] 05-19-2002 haemophilus influenz ae type b conjugate and Hepatitis B vaccine Ibis [employer] Myra Work Phone: [place] [address] DO Work Phone: 05-19-2002 pneumococcal conjuga te vaccine, 7 valent Ibis [employer] Myra Work Phone: [place] [address] DO Work Phone: 05-19-2002 poliovirus vaccine, inactivated [employer] Work Phone: [place] [address] DO Work Phone: 05-19-2002 poliovirus vaccine, unspecified formulation Celeste [employer] [facility] 03-05-2002 diphtheria, tetanus toxoids and acellular pertussis vaccine, unspecified formulation [employer] Work Phone: [place] [address] DO Work Phone: 03-05-2002 DTaP, unspecified formulation Celeste [employer] [facility] 03-05-2002 haemophilus influenz ae type b conjugate and Hepatitis B vaccine Ibis [employer] Work Phone: [place] [address] DO Work Phone: 03-05-2002 poliovirus vaccine, inactivated [employer]bis [employer] My[employer] Work Phone: [facility] 250 DO Work Phone: 03-05-2002 poliovirus vaccine, unspecified formulation Celeste Rinkes [facility] 2001 hepatitis B vaccine, pediatric or pediatric/adolescent dosage [employer] Myra Work Phone: [facility] [place] Payers Date Payer Category Payer Self-pay [id number] 2023 Unknown [id number] 2022 Medicaid HMO [employer] [id number] 2021 Private Health Insurance [id number] .[id number]. [id number] 2021 Private Health Insurance [id number] 2.16.840.1.787477.19 2020 Private Health Insurance [facility] [id number] 2020-Present [phone] [address] [place] [address] HMO [id number] [id number]. [id number] 2020 Unknown [id number] 2017 Managed Care Other (unspecified) [id number]. [id number] 2013 Medicaid [employer] [id number] 2013-Present [phone] [address] [place] [address] Medicaid [id number] [id number]. [id number] 2013 Medicaid [id number] 1.13.159.2. [id number] 2007 Unknown [id number] 2.16.840.1.100034.19 2001 Unknown [id number] 2.16.840.1.233906.3.579.2. 1068 2001 Unknown [id number] 2.16.840.1.020625.3.579.2. 594 2001 Unknown [id number] 2.16.840.1.872186.3.579.2. 594 2001 Unknown [id number] 2.16.840.1.730226.3.579.2. 356 2001 Unknown [id number] 2.16.840.1.010441.3.579.2. 356 2001 Unknown [id number] 2.16.840.1.517637.3.579.2. 356 2001 Unknown [id number] 2.16.840.1.055565.3.579.2. 356 2001 Unknown [id number] 2.16.840.1.258645.3.579.2. 356 2001 Unknown [id number] 2.16.840.1.521460.3.579.2. 356 2001 Unknown [id number] 2.16.840.1.872272.3.579.2. 356 2001 Unknown [id number] 2.16.840.1.256474.3.579.2. 356 2001 Unknown [id number] 2.16.840.1.890675.3.579.2. 727 2001 Unknown [id number] 2.16.840.1.100589.3.579.2. 727 2001 Unknown [id number] 2.16.840.1.096259.3.579.2. 727 2001 Unknown [id number] 2.16.840.1.265080.3.579.2. 727 2001 Unknown [id number] 2.16.840.1.446995.3.579.2. 727 2001 Unknown [id number] 2.16.840.1.206367.3.579.2. 1258 2001 Unknown [id number] 2.16.840.1.284377.3.579.2. 1258 2001 Unknown [id number] 2.16.840.1.606783.3.579.2. 1258 2001 Unknown [id number] 2.16.840.1.758966.3.579.2. 1258 2001 Unknown [id number] 2.16.840.1.076633.3.579.2. 1258 2001 Unknown [id number] 2.16.840.1.820045.3.579.2. 1258 2001 Unknown [id number] 2.16.840.1.993194.3.579.2. 1258 2001 Unknown [id number] 2.16.840.1.642279.3.579.2. 1258 2001 Unknown [id number] 2.16.840.1.029320.3.579.2. 1258 2001 Unknown [id number] 2.16.840.1.959433.3.579.2. 1258 2001 Unknown [id number] 2.16.840.1.689896.3.579.2. 1258 2001 Unknown [id number] 2.16.840.1.193608.3.579.2. 1258 2001 Unknown [id number] 2.16.840.1.022936.3.579.2. 1258 2001 Unknown [id number] 2.16.840.1.307236.3.579.2. 1259 2001 Unknown [id number] 2.16.840.1.879129.3.579.2. 1259 2001 Unknown [id number] 2.16.840.1.564253.3.579.2. 1286 2001 Unknown [id number] 2.16.840.1.856173.3.579.2. 1286 2001 Unknown [id number] 2.16.840.1.770763.3.579.2. 1286 2001 Unknown [id number] 2.16.840.1.178637.3.579.2. 1286 Unknown Unknown Venessa FRYE/JESSICA [id number] Unknown [id number] 2.16.840.1.639243.3.579.2. 531 Social History Date Type Detail Facility Tobacco smoking stat us ALIS Tobacco smoking consumption unknown [facility] Work Phone: Start: 2001 Sex Assigned At Not on file C [facility] Start: 01-15-2022 End: 07-31-2022 Exposure to SARS-CoV-2 (event) Not sure [facility] Start: 12-28-2022 End: 02-25-2024 Sex Assigned At [facility] Start: 12-28-2022 End: 02-25-2024 No alcohol use No alcohol use [facility] Comment on above: very rarely soda; Start: 09-20-2019 End: 02-20-2023 Tobacco smoking status ALIS Never smoked tobacco (finding) [facility] Start: 2001 Sex Assigned At Female F [facility] Start: 07-31-2022 End: 02-20-2023 Tobacco use and exposure Smokeless tobacco non-user [facility] Adult Depression Screening Assessment 0 [facility] Start: 09-29-2023 Gender identity Identifies as female gender (finding) [facility] Start: 06-04-2024 End: 09-18-2024 Alcoholic beverage intake Ex-drinker (finding) [facility] Do you belong to any clubs or organizations such as orthodox groups, unions, fraternal or athletic groups, or [...] [facility] Start: 04-27-2015 Sex Female (finding) [facility] NEGATED: Highlighted rowStart: NINF History of tobacco use Passive smoker [facility] Medical Equipment Procedure Code Equipment Code Equipment Origin al Text Equipment Identifier Dates 1 strip by In Vi tro route Daily Use in the morning prior to breakfast, 1 hour after each meal for a total of 4times daily. [id number] Start: 09-18-2024 End: 10-18-2024 1 each by In Vit ro route Daily Use to check FSBS four times daily [id number] Start: 09-18-2024 End: 10-18-2024 Clinical Notes 09-24-2007 to 10-15-2024 Camilla Bar, [facility] - 10/15/2024 3:30 PM Titi Mendes, [facility] - 10/02/2024 11:00 AM ESTTelephone Encounter - Pilar Alonso LPN - 09/25/2024 12:42 PM Teresa Bar, [facility] - 09/18/2024 10:30 AM EST Note Date & Type Note Facility 10-15-2024 History of Present illness Narrative Reason for [...] Quervain's disease (tenosynovitis) 02/26/2024 Tension headache 03/25/2024 Gestational diabetes mellitus (GDM), antepartum 10/02/2024 29 weeks gestation of 10/02/2024 Third trimester 10/02/2024 Resolved Ambulatory Problems Diagnosis Date Noted Thumb [...] nursing note reviewed. Exam conducted with a dress marker present. Vitals: Estimated body mass index is 38.94 kg/m as calculated from the following: Height as of 08/27/24: 5' 5 . Weight as of this encounter: 234 lb. BP: 118/64 Patient's last menstrual period was 03/22/2024. ASSESSMENT & PLAN ICD-10-CM 1. 29 weeks gestation of Z3A.29 POCT urinalysis dipstick manually resulted 2. Third trimester Z34.93 Return OB: Patient presents today for a routine obstetrics appointment. Patient is currently 29w4d . Patient states she is doing well but has complaints of being tired due to current . Patient has verbalizes frequent movement. labor precautions was discussed/given and patient was instructed to perform kick counts three times a day. Pt is with twins. Orders Placed This Encounter Procedures POCT urinalysis dipstick manually resulted Follow Up: Patient is to return to office in 2 week for routine OB appointment. Documented by Camilla Bar LPN on behalf of: Osei Malik DO documented in this encounter [facility] 10-02-2024 History of Present illness Narrative Reason [...] nursing note reviewed. Exam conducted with a dress marker present. Vitals: Estimated body mass index is [...] Osei Malik DO documented in this encounter [facility] 09-25-2024 Telephone encounter Note Patient called [...] today. Patient was advised to report to [facility] for check and she was asking if she could go to [facility] as that's closer she was advised we prefer [place] but she can go where she is comfortable. Patient states will go to [facility] as she is at work and that's closer right now. Patient advised note would be in chart. [facility] Work Phone: 09-25-2024 Miscellaneous Notes Patient [...] today. Patient was advised to report to [facility] for check and she was asking if she could go to [facility] as that's closer she was advised we prefer [place] but she can go where she is comfortable. Patient states will go to [facility] as she is at work and that's closer right now. Patient advised note would be in chart. documented in this encounter [facility] 09-18-2024 History of Present illness Narrative [...] nursing note reviewed. Exam conducted with a dress marker present. Vitals: Estimated body mass index is [...] Osei Malik DO documented in this encounter [facility] 09-03-2024 History of Present illness Narrative [...] Osei Malik DO documented in this encounter [facility] 09-02-2024 History of Present illness Narrative Images from the original note were not included. [facility] Follow-Up VIRTUAL VISIT This is a virtual visit using [employer] Zoom Video Visit. It required patient-provider interaction for the medical decision making as documented below. I have communicated my name and active licensure. The patient's identity and physical location were verified at the time of this visit. Either the patient or their legal textiles sales representative has been informed of the [...] which included preparing to see the patient, [id number] patient care, completing clinical documentation, obtaining and/or reviewing separately obtained history, performing a medically appropriate examination, and counseling and educating the patient/family/caregiver. Jyoti Dickey PA-C Neuromuscular Medicine [address] [place] [address]. [phone] Appointment: [phone] During our virtual visit encounter we discussed [...] bright light?: Mild documented in this encounter [facility] 09-02-2024 Note HNO ID: [id number] Author: JYOTI DICKEY PA-C Service: ? Author Type: Physician Facilities Plant Engineer Type: Progress Notes Filed: 09/02/2024 11:21 Note Text: [facility] Follow-Up VIRTUAL VISIT This is a virtual visit using [employer] Video Visit. It required patient-provider interaction for the medical decision making as documented below. I have communicated my name and active licensure. The patient's identity and physical location were verified at the time of this visit. Either the patient or their legal textiles sales representative has been informed of the [...] female here t (more content not included)... [facility] 08-29-2024 Miscellaneous Notes Inspector Government Property spoke to patient . Patient has complains of SOB which she states is mainly at night time. She has recently seen her PCP who stated that her lungs are tight/restricted and prescribed her an inhaler. Today the patient is feeling better and states that when she checked her SPO2 today it was at 96%. Inspector Government Property advised patient to monitor and if her O2 Sat falls under 95% and/or the inhaler does not help to present to her nearest ER. Patient verbalized understanding. documented in this encounter [facility] 08-29-2024 Telephone encounter Note Inspector Government Property spoke to patient . Patient has complains of SOB which she states is mainly at night time. She has recently seen her PCP who stated that her lungs are tight/restricted and prescribed her an inhaler. Today the patient is feeling better and states that when she checked her SPO2 today it was at 96%. Inspector Government Property advised patient to monitor and if her O2 Sat falls under 95% and/or the inhaler does not help to present to her nearest ER. Patient verbalized understanding. [facility] 08-27-2024 Telephone encounter Note Alternative inhaler requested by pharmacy. [facility] 08-27-2024 Miscellaneous Notes Alternative inhaler requested by pharmacy. documented in this encounter [facility] 08-27-2024 History of Present illness Narrative Images from the original note were not included. Subjective Patient ID: Madyson Mai is a 23 y.o. female who presents for asthma. Madyson is present today for evaluation of asthma. Admits she is 22 weeks with twins, she is not sure if that is what is flaring up her asthma. She has not see her professional sports scout in a couple of years and her [...] or chew.. 30 capsule 11 Vit-Fe Fumarate-FA (M- Plus) 27-1 MG tablet [...] visit: Mild intermittent asthma with acute exacerbation ([facility]) - fluticasone (Flovent HFA) 110 MCG/ACT inhaler; [...] fail to improve. documented in this encounter [facility] 08-13-2024 History of Present illness Narrative [...] no Have you been seen here at [facility] in a previous ? no Recent ER visits or hospitalizations? no Bring blood sugar log or meter with you today? (Please bring them with you for every visit at [facility]) n/a Flu vaccine (Jul-November)? Yes Any [...] Resource Strain: Low Risk (02/25/2024) Received from [facility] Overall Financial Resource Strain (CARDIA) Difficulty of Paying Living Expenses: Not very hard Food Insecurity: No Food Insecurity (08/13/2024) Hunger Screening Food Insecurity - Worry: Never True Food Insecurity - Inability: Never True Transportation Needs: No Transportation Needs (02/25/2024) Received from [facility] PRAPARE - Transportation Lack of Transportation (Medical): No Lack of Transportation (Non-Medical): No Physical Activity: Inactive (02/25/2024) Received from [facility] Exercise Vital Sign Days of Exercise per Week: 0 days Minutes of Exercise per Session: 0 min Stress: No Stress Concern Present (02/25/2024) Received from [facility] [place] [place] [employer] - Occupational Stress Questionnaire Feeling of Stress : Only a little Social Connections: Moderately Integrated (02/25/2024) Received from [facility] Social Connection and Isolation Panel [NHANES] Frequency of Communication with Friends and Family: More than three times a week Frequency of Social Gatherings with Friends and Family: Three times a week Attends Denominational Services: More than 4 times per year Active Member of Clubs or Organizations: No Attends Club or Organization Meetings: Patient declined Marital Status: Interpersonal Safety: Not on file Housing Instability: Low Risk (02/25/2024) Received from [facility] Housing Stability Vital Sign Unable to [...] complications, or both, related to use. The [place] [employer] and the [...] tachycardia syndrome) She follows with Neurology at [facility]. Last visit was on 07/02/2024. External records reviewed. 07/02/2024 - General Neurology, Joie Seaman, JOHNNY.ENGLISH DIVISION CHAIR ASSESSMENT Madyson Mai is a 23 year [...] continue with routine care in your office [facility], the CDC, and other organizations representing maternal and public health professionals recommend that , , and lactating people and those considering receive the COVID-19 vaccination. Vaccination is the best method to reduce maternal and complications of SARS-CoV-2 infection. This document was created with [employer] technology. Though I make every effort to review the dictation as it is transcribed, on occasion the spoken word can be misinterpreted by the technology leading to inappropriate words, phrases, or sentences. This note is addressed to the requesting provider as a consultation for clinical guidance. Specific medical abbreviations are occasionally used and those are generally approved by the [place]?Board of?Obstetrics and?Gynecology?as well as?Loretta s abbreviations. The above plan of care was based solely on the diagnoses for which a consultation was requested. ?More frequent testing may be indicated based on her other medical/obstetrical conditions. The management of other or medical conditions is beyond the scope of requested consultation and will continue to be followed by the primary satellite dish technician or primary care provider. Thank you for [...] procedures Referring and communicating with other health animal daycare provider (not separately reported) Documenting clinical information in the electronic or other health record Independently interpreting results (not separately reported) and communicating results to the patient/family/caregiver Care coordination (not separately reported) documented in this encounter [facility] [place] 08-06-2024 Telephone encounter Note Can we have her schedule for a follow up appointment. Can be virtual or in person. Thanks, AM [facility] Work Phone: 08-06-2024 Miscellaneous Notes Can we have her schedule for a follow up appointment. Can be virtual or in person. Thanks, AM documented in this encounter [facility] 08-05-2024 History of Present illness Narrative Reason [...] nursing note reviewed. Exam conducted with a dress marker present. Vitals: Estimated body mass index is [...] obtained without difficulty and patient was given [facility] order to have obtained. Orders Placed This Encounter Procedures CHLAMYDIA TRACHOMATIS (GENITO/STI) Neisseria gonorrhea DNA probe, direct Alpha fetoprotein, maternal POCT urinalysis dipstick manually resulted Follow Up: Patient is to return to our office in 4 weeks for routine OB appointment Documented by Annika Silva LPN on behalf of: TOMASZ Rizvi documented in this encounter [facility] 07-03-2024 History of Present illness Narrative [...] current . Patient is being referred to [facility] for her twin , gave her information about who she will be seeing there. No orders of the defined types were placed in this encounter. Follow Up: Patient is to return to office in 4 weeks for routine OB appointment. Documented by Ibis Sandoval on behalf of: TOMASZ Rizvi documented in this encounter [facility] 07-02-2024 History of Present illness Narrative Images from the original note were not included. [facility] Follow Up / Established Virtual Visit I have communicated my name and active licensure. The patient's identity and physical location were verified at the time of this visit. Either the patient or their legal textiles sales representative has been informed of the risks and benefits of -- and alternatives to -- treatment through a remote evaluation and consents to proceed with the evaluation remotely. Individuals who were included in, or assisted with the encounter were: Madyson Mai Joie Seaman APRN.ENGLISH DIVISION CHAIR Chief Complaint/Issues: Madyson Mai is a 23 year old female seen in the [facility] for: POTS Most [...] Plan 07/02/2024 - General Neurology, Joie Seaman APRN.ENGLISH DIVISION CHAIR ASSESSMENT Madyson Mai is a 23 year [...] which included preparing to see the patient, bmhn-da-rxdo patient care, completing clinical documentation, obtaining and/or reviewing separately obtained history, performing a medically appropriate examination, counseling and educating the patient/family/caregiver, and ordering medications, tests, or procedures. Joie Seaman APRN.ENGLISH DIVISION CHAIR 06/28/2024 PROMIS [employer] Physical Health Summary [...] and warrants attention documented in this encounter [facility] 07-02-2024 Note HNO ID: [id number] Author: JOIE SEAMAN APRN.CNP Service: ? Author Type: Nurse Practitioner Type: Progress Notes Filed: 07/02/2024 19:57 Note Text: [facility] Follow Up / Established Virtual Visit I have communicated my name and active licensure. The patient's identity and physical location were verified at the time of this visit. Either the patient or their legal textiles sales representative has been informed of the risks and benefits of -- and alternatives to -- treatment through a remote evaluation and consents to proceed with the evaluation remotely. Individuals who were included in, or assisted with the encounter were: Madyson Charlton Randallleilani Joie Seaman APRN.CNP Chief Complaint/Issues: Madyson Mai is a 23 year old female seen in the [facility] for: POTS Most [...] Plan 07/02/2024 - General Neurology, Joie Seaman, JOHNNY.ENGLISH DIVISION CHAIR ASSESSMENT Madyson Mai is a 23 year [...] Mostly Moderately S (more content not included)... [facility] 06-04-2024 History of Present illness Narrative Reason [...] nursing note reviewed. Exam conducted with a dress marker present. Vitals: Estimated body mass index is [...] possibly adding medication. Pt being referred to [facility] for TWIN gestation. Expectations throughout regarding labs, ultrasounds, and appointments have been discussed with the patient in detail. It was reiterated that the patient is to drink 6-8 glasses of water a day, eat 6 small meals a day, do not consume raw or undercooked meat, and stay away from [facility]. Patient has been consulted regarding any further do's and don'ts of . Patient voiced understanding and all questions and concerns were answered. Orders Placed This Encounter Procedures POCT urinalysis dipstick manually resulted Follow Up: Patient is to return in 4 weeks for routine OB appointment. Documented by Camilla Bar LPN on behalf of: Osei Malik DO documented in this encounter [facility] 05-23-2024 History of Present illness Narrative [...] providers found * documented in this encounter [facility] 05-20-2024 History of Present illness Narrative [...] topical cream for less systemic absorption. Consider wound care physician. Can provide pt with referral to PT if symptoms do not improve with the above. X-rays not yet indicated, especially as pt is . Follow up if symptoms worsen or fail to improve. documented in this encounter [facility] 03-20-2024 History of Present illness Narrative Images from the original note were not included. [facility] Follow-Up VIRTUAL VISIT This is a virtual visit using [employer] Zoom Video Visit. It required patient-provider interaction for the medical decision making as documented below. I have communicated my name and active licensure. The patient's identity and physical location were verified at the time of this visit. Either the patient or their legal textiles sales representative has been informed of the [...] which included preparing to see the patient, vjxn-jp-tzia patient care, completing clinical documentation, obtaining and/or reviewing separately obtained history, performing a medically appropriate examination, counseling and educating the patient/family/caregiver, and ordering medications, tests, or procedures. Jyoti Dickey PA-C Neuromuscular Medicine [address] [place] [address]. [id number] Appointment: [phone] During our virtual visit encounter we discussed [...] problem? : Mild documented in this encounter [facility] 03-20-2024 Note HNO ID: [id number] Author: JYOTI DICKEY PA-C Service: ? Author Type: Physician Facilities Plant Engineer Type: Progress Notes Filed: 03/20/2024 15:17 Note Text: [facility] Neuromuscular Medicine Follow-Up VIRTUAL VISIT This is a virtual visit using MyChart Zoom Video Visit. It required patient-provider interaction for the medical decision making as documented below. I have communicated my name and active licensure. The patient's identity and physical location were verified at the time of this visit. Either the patient or their legal textiles sales representative has been informed of the [...] hea (more content not included)... [facility] 11-30-2023 History of Present illness Narrative Images from the original note were not included. [facility] Neu[facility]uscular [facility] New Patient Evaluation [...] and was treated with various medications including beta-qunetin/atenolol no benefit, Florinef caused GI side effects, [...] experienced LOC while walking up the stairs. [place] prodromal symptoms including lightheadedness and tunnel vision. [...] Plantarflexion 5/5 5/5 Movement/Coordination Finger-to- nose-finger and mnvs-de-gsmi intact bilaterally. No evidence of ataxia arms. [...] Brachioradialis 2/4 2/4 Patella 2/4 2/4 Ankle /12 24/4 No Clonus Negative Babinski (toes curl down) [...] which included preparing to see the patient, nxwn-ph-fumq patient care, completing clinical documentation, obtaining and/or [...] on 11/30/23. Jyoti Dickey PA-C Neuromuscular Medicine [address] [place] [address]. [id number] Appointment: [phone] 1. This office note has been dictated [...] problem? : Moderate documented in this encounter [facility] 11-30-2023 Note HNO ID: [id number] Author: JYOTI DICKEY PA-C Service: ? Author Type: Physician Facilities Plant Engineer Type: Progress Notes Filed: 11/30/2023 11:14 Note Text: [facility] New Patient Evaluation [...] experienced LOC while walking up the stairs. [place] prodromal symptoms including lightheadedness and tunnel vision. [...] Tac (more content not included)... [facility] 11-12-2023 Note HNO ID: [id number] Author: ?, ?, ? Service: ? Author [...] completed when applicable. Gauri Harris [facility] 11-12-2023 History of Present illness Narrative [...] applicable. Gauri Harris documented in this encounter [facility] 10-10-2023 Note HNO ID: [id number] Author: AURORA SANTIAGO PA-C Service: ? Author Type: Physician Facilities Plant Engineer Type: Progress Notes Filed: 10/10/2023 16:33 Note Text: [facility] Neuromuscular Medicine New Patient Evaluation [...] facility-adminis (more content not included)... [facility] 10-10-2023 Note HNO ID: [id number] Author: ANGELIQUE RUTH MD Service: ? Author [...] or VE Triplets were present. [facility] 07-20-2023 Telephone encounter Note Call to Madyson to discuss referral to dysautonomia clinic. Informed her that we are unable to provide dysautonomia evaluation at this time. Provided number for [facility] scheduling service. No other needs at this time. [facility] 07-20-2023 Miscellaneous Notes Call to Madyson to discuss referral to dysautonomia clinic. Informed her that we are unable to provide dysautonomia evaluation at this time. Provided number for [facility] scheduling service. No other needs at this time. documented in this encounter [facility] 07-10-2023 Note HNO ID: [id number] Author: Jose Armando Grey, DO Service: ? Author Type: Physician Type: Progress Notes Filed: 07/10/2023 10:08 AM Note Text: [facility] Office Visit Documentation Note [facility] Sports Medicine Orthopaedic and Rheumatologic [place] HISTORY OF PRESENT ILLNESS (HPI) CHIEF COMPLAINT / REASON FOR VISIT SERVICE DATE: July 10, 2023 PCP: No primary care provider on file. Madyson Schmid is here today at request of Dr. Jose Armando Schmid specifically for consultation of my opinion in regards to the chief complaint listed below. Correspondence will be shared today via the [employer] electronic health record or through regular mail, [...] She need to consider PT or personal insurance advisor. Reaction knee brace Consider [place] toradol, did discuss orthobiologics Follow up: Films prior to visit: Written instructions (see patient instructions) and verbal health education given to patient. Patient verbalizes understanding and agrees with the treatment plan. Jose Armando Grey D.O. [facility] Orthopaedic and Rheumatologic Medical Coding Manager, [facility] T[facility]E.A.M. Program Team Physician, [facility] Baseball [employer] Consulting Physician, [place] Martin Nagel, Rope Coiling Machine Operator [phone] [facility] 07-10-2023 History of Present illness Narrative Images from the original note were not included. [facility] Office Visit Documentation Note [facility] Sports Medicine Orthopaedic and Rheumatologic [place] HISTORY OF PRESENT ILLNESS (HPI) CHIEF COMPLAINT / REASON FOR VISIT SERVICE DATE: July 10, 2023 PCP: No primary care provider on file. Madyson Schmid is here today at request of Dr. Jose Armando Schmid specifically for consultation of my opinion in regards to the chief complaint listed below. Correspondence will be shared today via the [employer] electronic health record or through regular mail, [...] She need to consider PT or personal insurance advisor. Reaction knee brace Consider [place] toradol, did discuss orthobiologics Follow up: Films prior to visit: Written instructions (see patient instructions) and verbal health education given to patient. Patient verbalizes understanding and agrees with the treatment plan. Jose Armando Grey D.O. [facility] Orthopaedic and Rheumatologic Medical Coding Manager, [facility] & T.E.A.M. Program Team Physician, [facility] [employer] Consulting Physician, [place] Martin Nagel, Rope Coiling Machine Operator [phone] documented in this encounter [facility] 12-28-2022 History of Present illness [...] surgery Evaluated by DR Case ([facility]) in 2020 no rheum issue found and [...] Swollen Glands: No documented in this encounter [facility] 07-31-2022 History of Present illness [...] surgery Evaluated by DR Case ([facility]) in 2020 no rheum issue found and [...] Swollen Glands: No documented in this encounter [facility] 07-10-2022 History of Present illness [...] she did get a second opinion in [place], and no change in medication was suggested [...] with paucity of objective findings on the [id number]. Abnormal tilt table test, with a combination [...] I will defer that to Dr. Maza [facility] [address] DO Work Phone: 06-12-2022 Note Pre-procedure Verifi cation and Time Out: Pre-Procedure Verification and Time Out: Procedure Locationbedside PRE-PROCEDURE Verificationcompleted TIME OUT - Final Verificationcompleted immediately prior to procedure start General Information: Anesthesia Critical Care: Non-Anesthesia Date/Time of Procedure: 12-Jun-2022 Post-Procedure Diagnosis: syncope Procedure Name: tilt table test Findings: grossly normal anatomy Procedure performed by: nm Facilities Plant Engineer(s): none Estimated Blood Loss (mL): none [...] Last Updated: 14-Jun-2022 11:56 by Annalee Maza) [facility] 03-24-2022 History of Present illness [...] while walking to the bathroom.She will see professional sports scout in the near future, she had her pulmonary function test which I reviewed, there is concern for chronic asthma, but no reactive airway disease.She has 3 dogs that she had, and 1 cat at home.She is not orthostatic. She is feeling palpitations quite a bit.Results of the pulmonary function test and a Micah of [place] was reviewed. Also reviewed stress test and [...] that, we will have to schedule at [facility], and patient is okay with driving.4. Lifestyle modifications such as regular aerobic activity as tolerated, excessive sodium intake, and possibly low-dose beta-blockers can be tried. If her breathing gets worse on the beta-blockers, then she should stop it. We will decide after seen by pulmonary, and also after the results of culpable test are available. -[facility]-Jose Cheek DO Work Phone: 03-24-2022 History of [...] while walking to the bathroom.She will see professional sports scout in the near future, she had her pulmonary function test which I reviewed, there is concern for chronic asthma, but no reactive airway disease.She has 3 dogs that she had, and 1 cat at home.She is not orthostatic. She is feeling palpitations quite a bit.Results of the pulmonary function test and a Micah of [place] was reviewed. Also reviewed stress test and [...] that, we will have to schedule at [facility], and patient is okay with driving.4. Lifestyle modifications such as regular aerobic activity as tolerated, excessive sodium intake, and possibly low-dose beta-blockers can be tried. If her breathing gets worse on the beta-blockers, then she should stop it. We will decide after seen by pulmonary, and also after the results of culpable test are available. -[facility]-Jose Cheek DO Work Phone: 02-02-2022 Miscellaneous Notes [...] P Mathai, MD documented in this encounter [facility] 01-25-2022 History of Present illness [...] February Evaluated by DR Case ([facility]) in 2020 no rheum issue found and [...] February Evaluated by DR Case ([facility]) in 2020 no rheum issue found and [...] Irvin Hanna MD documented in this encounter [facility] 01-10-2022 Evaluation note Encounter Date Diagnosis Assessment Notes Dec, Skin rash (ICD-10 - R21) Dec, Other Transient recurrent color coverstitch elastic attacher the knees and toes I do not [...] will go ahead with her evaluation in [facility]. [employer] Other 01-17-2022 Evaluation note* Encounter Date Diagnosis [...] day as needed for pain and swelling. [employer] [facility] 07-01-2021 History of Present illness Narrative* [...] heart murmur and has been transferred to [facility] * There is no family history of [...] 3 times daily. New prescription sent. Consider [place] in the future. * Order 30-day monitor [...] needed, treatment options, risks, benefits, and imponderables. [place] [employer] lifestyle changes and behavioral modification discussed. All questions answered in detail. Counseling over 50% visit regarding above. Patientappreciative of care. * At the end the office visit, she did report that she will be seeing an payroll specialist in [place]. We did discuss that she could hold [...] errors as software dictation application being used. -[facility]-[place] [address] DO Work Phone: [phone]) 273-725708-25-2020 History of Present illness Narrative* She is [...] exposed to secondhand smoke from her mother. [facility] [employer] DO Work Phone: 1(858) 951-719107-09-2020 History of Present illness Narrative* Patient is [...] twin brother had to be taken to [facility], and has history of heart [...] arise, * Sincerely, * Melodie alcaraz MD [facility] Work Phone: [phone]) 650-372707-01-2020 History of Present illness Narrative* Patient is [...] [facility] [facility], and has history of heart [...] arise, * Sincerely, * Melodie alcaraz MD [facility] [address] DO Work Phone: [phone]) 557-295806-30-2020 History of Present illness Narrative* Patient is [...] twin brother had to be taken to [facility], and has history of heart [...] arise, * Sincerely, * Melodie alcaraz MD [facility]-[place] DO Work Phone: [phone]) 588-848801-01-2008 History general Narrative - Reported* Type Description Date Medical History general health good Surgical History tonsillectomy and adenoidectomy 09/2007 [employer] Other 01-01-2008 History general Narrative - Reported* Type Description Date Medical History general health good Surgical History tonsillectomy and adenoidectomy 09/2007 Surgical History right knee cleaned up scar tiss ue 2020 [employer] Other Chief complaint Narrative - ReportedMADYSON SCHMID is being seen for a cardiovascular evaluation of abnormal test(s) results and dyspnea.[facility] [address] DO Work Phone: Chivp complaint Narrative - ReportedMADYSON SCHMID is being seen for a cardiovascular evaluation of abnormal test(s) results and dyspnea.[facility] Work Phone: Evaluation + Plan note No data available for this section [facility]* Diagnosis Pain and swelling of knee, right- Primary Joint stiffness Stiffness of joint, not elsewhere classified, unspecified site documented in this encounter [facility] [place] noteNo assessment information availableSelect [facility] Work Phone: Evaluation note* Diagnosis Pain and swelling of knee, right- Primary Joint stiffness Stiffness of joint, not elsewhere classified, unspecified site Inflammatory arthritis Unspecified inflammatory polyarthropathy [facility] Diagnosis Pain and swelling of knee, right- Primary Joint stiffness Stiffness of joint, not elsewhere classified, unspecified site documented [facility] this encounter [facility] Diagnosis Right knee pain, unspecified chronicity- Primary [facility] Diagnosis Chronic pain of right knee- Primary Tendinopathy of gluteal region Unspecified disorder of synovium, tendon, and bursa documented [facility]* Diagnosis Orthostatic lightheadedness- Primary Dizziness and giddiness [facility]* Diagnosis POTS (postural orthostatic tachycardia syndrome)- Primary Tachycardia, unspecified [facility] Diagnosis POTS (postural orthostatic tachycardia syndrome)- Primary Tachycardia, unspecified [facility] Diagnosis POTS (postural orthostatic tachycardia syndrome)- Primary Tachycardia, unspecified Near syncope Syncope and collapse [facility]* Diagnosis Second trimester state, incidental 14 weeks gestation of [facility] Diagnosis Thumb pain, right- Primary [...] Leg cramping Heartburn documented in [facility] encounter [facility]* Diagnosis Dichorionic diamniotic twin in second trimester- Primary POTS (postural orthostatic tachycardia syndrome) Unspecified tachycardia Asthma during 20 weeks gestation of [facility] Diagnosis Dichorionic diamniotic twin in second trimester- Primary POTS (postural orthostatic tachycardia syndrome) Unspecified tachycardia Asthma during 20 weeks gestation of [facility] Diagnosis Thumb pain, right- [...] syndrome) Unspecified tachycardia documented in this encounter [facility]* Diagnosis Thumb pain, right- [...] without complication (CMS/HCC) documented in this encounter [facility]Evaluation [facility]* Diagnosis POTS (postural orthostatic tachycardia syndrome)- Primary Tachycardia, unspecified 23 weeks gestation of state, incidental [facility] in this encounter [facility]* Diagnosis Thumb pain, right- [...] gestation of [facility]* Diagnosis Pain of left sacroiliac joint- Primary [facility]* Diagnosis Missed menses documented in [...] Other subacute sinusitis documented [facility]* [...] third trimester- Primary [facility] Diagnosis Thumb pain, right- Primary De Quervain's disease (tenosynovitis) Radial styloid tenosynovitis PCOS (polycystic ovarian syndrome) Polycystic ovaries POTS (postural orthostatic tachycardia syndrome) Unspecified tachycardia Tension headache- Primary Encounter for immunization POTS (postural orthostatic tachycardia syndrome) Unspecified tachycardia Well adult exam Routine general medical examination at a health care facility 29 weeks gestation of Third trimester state, incidental Dichorionic diamniotic twin in second trimester documented in this encounter [facility] HealthcareHistory of [...] heart murmur [facility] * There is no change [...] patient that she saw Dr. Muñiz at [facility] for second opinion regarding neurally mediated syncope and near syncope. He agreed with evaluation and management and patient opted to follow-up here at [facility] in [place]. * Zio patch August 2022. All rhythms [...] needed, treatment options, risks, benefits, and imponderables. [employer] lifestyle changes and behavioral modification discussed. All questions answered in detail. Counseling over 50% visit regarding above. Patient appreciative of care. * Grammar * Please excuse grammatical or dictation errors as software dictation application being used. [facility] [address] DO Work Phone: History of Present illness Narrative* The patient states she has been generally stable since the last visit. * Symptoms: denies chest pain at rest, denies exertional chest pain, denies dyspnea, stable fatigue, denies exercise intolerance, stable palpitations, denies edema, denies orthopnea, stable dizziness and stable orthostatic dizziness. * Disease Monitoring: [facility] 600 DO Work Phone: Hospital Discharge instructions No data available for this section [facility] CenterInstructionsNot on filedocumented in this encounter [facility]ructionsNot on filedocumented in this encounter [facility]InstructionsNot on filedocumented in this encounter [facility] SystemInstructionsNot on filedocumented in this encounter [facility] SystemInstructionsNot on filedocumented in this encounter [facility] SystemProgress note No data available for this section [facility] CenterReason for referral (narrative)* Diagnostic Procedure Only (Routine) - Pending Review Specialty Diagnoses / Procedures Referred By Rachel lópez Referred To Contact XR IMAGING Diagnoses Right knee pain, unspecified chronicity Procedures XR KNEE GENERAL 4V AP BOTH/PA BOTH/LAT/MERC RIGHT RADIOLOGIC EXAM KNEE COMPLETE 4/[place] [address] [place] [address] [place] [address] Referral ID Status Reason Start Date Expiration Date Visits Requested Visits Authorized [id number] Pending Review Auto-Generat ed Referral 3 08/04/2024 1 1 [facility] referral from Cj Jaimes, She gets a funny rash on her knee and toesNoh SIZESEEKER Other Summary Purpose Family History Unknown Family [...] or prosecute any alcohol or drug abuse patient.[facility] CenterIn the event this information is protected by the Federal Confidentiality of Alcohol and Drug Abuse Patient Records regulations: The Federal rules restrict any use of the information to criminally investigate or prosecute any alcohol or drug abuse patient.[facility] CenterIn the event this information is protected by the Federal Confidentiality of Alcohol and Drug Abuse Patient Records regulations: The Federal rules restrict any use of the information to criminally investigate or prosecute any alcohol or drug abuse patient.[facility] CenterIn the event this information is protected by the Federal Confidentiality of Alcohol and Drug Abuse Patient Records regulations: The Federal rules restrict any use of the information to criminally investigate or prosecute any alcohol or drug abuse patient.[facility] CenterIn the event this information is protected by the Federal Confidentiality of Alcohol and Drug Abuse Patient Records regulations: The Federal rules restrict any use of the information to criminally investigate or prosecute any alcohol or drug abuse patient.[facility] CenterIn the event this information is protected by the Federal Confidentiality of Alcohol and Drug Abuse Patient Records regulations: The Federal rules restrict any use of the information to criminally investigate or prosecute any alcohol or drug abuse patient.[facility] CenterIn the event this information is protected by the Federal Confidentiality of Alcohol and Drug Abuse Patient Records regulations: The Federal rules restrict any use of the information to criminally investigate or prosecute any alcohol or drug abuse patient.[facility] CenterIn the event this information is protected by the Federal Confidentiality of Alcohol and Drug Abuse Patient Records regulations: The Federal rules restrict any use of the information to criminally investigate or prosecute any alcohol or drug abuse patient.[facility] CenterIn the event this information is protected by the Federal Confidentiality of Alcohol and Drug Abuse Patient Records regulations: The Federal rules restrict any use of the information to criminally investigate or prosecute any alcohol or drug abuse patient.[facility] CenterIn the event this information is protected by the Federal Confidentiality of Alcohol and Drug Abuse Patient Records regulations: The Federal rules restrict any use of the information to criminally investigate or prosecute any alcohol or drug abuse patient.[facility] CenterIn the event this information is protected by the Federal Confidentiality of Alcohol and Drug Abuse Patient Records regulations: The Federal rules restrict any use of the information to criminally investigate or prosecute any alcohol or drug abuse patient.[facility] CenterIn the event this information is protected by the Federal Confidentiality of Alcohol and Drug Abuse Patient Records regulations: The Federal rules restrict any use of the information to criminally investigate or prosecute any alcohol or drug abuse patient.[facility] CenterIn the event this information is protected by the Federal Confidentiality of Alcohol and Drug Abuse Patient Records regulations: The Federal rules restrict any use of the information to criminally investigate or prosecute any alcohol or drug abuse patient.[facility] Reason for Visit (unrecogniz ed [...] section and content) DATE CREATED AUTHOR 02/03/2022 [facility] DATE CREATED AUTHOR AUTHOR'S ORGANIZ ATION 06/24/2022 [place] [facility] DATE CREATED AUTHOR AUTHOR'S ORGANIZ ATION 09/15/2022 [employer] DATE CREATED AUTHOR AUTHOR'S ORGANIZ ATION 03/16/2023 [facility] DATE CREATED AUTHOR AUTHOR'S ORGANIZ ATION 06/15/2023 [facility] ical Center DATE CREATED AUTHOR AUTHOR'S ORGANIZ ATION 07/11/2023 [facility] DATE CREATED AUTHOR AUTHOR'S ORGANIZ ATION 03/15/2024 [place] [facility] ical [facility] DATE CREATED AUTHOR AUTHOR'S ORGANIZ ATION 04/15/2024 [facility] ical Center DATE CREATED AUTHOR AUTHOR'S ORGANIZ ATION 07/11/2024 [facility] DATE CREATED AUTHOR AUTHOR'S ORGANIZ ATION 07/26/2024 [facility] [place] [facility] ica Center DATE CREATED AUTHOR AUTHOR'S ORGANIZ ATION 09/05/2024 [facility] DATE CREATED AUTHOR AUTHOR'S ORGANIZ ATION 10/17/2024 [facility] dical Specialists [facility] DATE CREATED AUTHOR AUTHOR'S ORGANIZ ATION 10/18/2024 [facility] Care Teams (unrecognized sec tion and content) Team Status: Inactive Member Role Status Dates CARLOS Harley Primary Care Provider Activ CARLOS Dowling Attending Provider Active Team Status: Inactive Member Role Status Dates CARLOS Harley Primary Care Provider Activ e Melodie Alcaraz MD Attending Provider Active Team Status: Inactive Member Role Status Dates CARLOS Harley Primary Care Provider Activ venita Alcaraz MD Attending Provider Active Álvaro Osborn MD Referring Provider Active Team Status: Active Member Role Status Dates CARLOS Harley Primary Care Provider Activ e Team Status: Inactive Member Role Status Dates CARLOS Harley Primary Care Provider Activ e Dyllan Pearce APRN Emergency Provider Active Team Status: Inactive Member Role Status Dates Ibis Renteria , 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 Primary Care Provider Activ e Christina Perez APRN Attending Provider Active Team Status: Inactive Member Role Status Dates Ibis Renteria , 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 Primary Care Provider Activ e Carlitos Nguyen Jr, DO Attending Provider Active Ship Worker Relationship Specialty Start Date End Date Ibis RenteriaJesika, ENGLISH DIVISION CHAIR [address] [place] [address] PCP - General Nurse Practitioner 07/09/23 Ship Worker Relationship Specialty Start Date End Date Susan Renteriaica RhondaJesika ENGLISH DIVISION CHAIR [address] [place] [address] PCP - General Nurse Practitioner 07/09/23 Team Status: Inactive Member Role Status Dates Ibis Renteria , 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 Primary Care Provider Activ e Haris Martino , Emergency Provider Active Team Status: Inactive Member Role Status Dates Ibisniharika Renteria , 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 Primary Care Provider Activ e Nam Barnes , DO [facility] Attending Provider Active Ship Worker Relationship Specialty Start Date End Date Jb Mandujano MD [address] [address] PCP - General Family Medicine 05/20/24 Osei Malik DO [address] [place], [place] [id number] Referring Physician Obstetrics and Gynecology 06/05/24 Flori Gil PA [address] [place] [address] Physician Facilities Plant Engineer Obstetrics and Gynecology 06/05/24 Ship Worker Relationship Specialty Start Date End Date Jb Mandujano MD 112 [facility] [address] [place] [address] PCP - General Family Medicine 05/20/24 Osei Malik, DO [address] [place] [address] Referring Physician Obstetrics and Gynecology 06/05/24 Flori Gil PA [address] [place] [address] Physician Facilities Plant Engineer Obstetrics and Gynecology 06/05/24 Ship Worker Relationship Specialty Start Date End Date Ander Boateng MD [address] [place] [address] PCP - General 11/30/17 Ship Worker Relationship Specialty Start Date End Date Jb Mandujano MD 112 [facility] [address] [place] [address] PCP - General Family Medicine 05/20/24 Osei Malik, DO [address] [place], [place] [id number] Referring Physician Obstetrics and Gynecology 06/05/24 Flori Gil PA [address] [place] [address] Physician Facilities Plant Engineer Obstetrics and Gynecology 06/05/24 Ship Worker Relationship Specialty Start Date End Date Jb Mandujano MD [address] [facility] [address] [place] [address] PCP - General Family Medicine 05/20/24 Osei Malik, DO [address] [place], [place] [phone] Referring Physician Obstetrics and Gynecology 06/05/24 Flori Gil PA [address] [place] [address] Physician Facilities Plant Engineer Obstetrics and Gynecology 06/05/24 Ship Worker Relationship Specialty Start Date End Date Jb Mandujano MD [address] [facility] [address] [place] [address] PCP - General Family Medicine 05/20/24 Osei Malik, DO [address] [place] [address] Referring Physician Obstetrics and Gynecology 06/05/24 Flori Gil PA [address] [place] [address] Physician Facilities Plant Engineer Obstetrics and Gynecology 06/05/24 Ship Worker Relationship Specialty Start Date End Date Ander Boateng MD [address] [place] [address] PCP - General 11/30/17 Ship Worker Relationship Specialty Start Date End Date Jb Mandujano MD [address] [address] PCP - General Family Medicine 05/20/24 Osei Malik, DO [address] [place] [address] Referring Physician Obstetrics and Gynecology 06/05/24 Flori Gil PA [address] [place] [address] Physician Facilities Plant Engineer Obstetrics and Gynecology 06/05/24 Ship Worker Relationship Specialty Start Date End Date Jb Mandujano MD [address] [facility] [address] [place] [address] PCP - General Family Medicine 05/20/24 Osei Malik DO [address] [place] [address] Referring Physician Obstetrics and Gynecology 06/05/24 Flori Gil PA [address] [place] [address] Physician Facilities Plant Engineer Obstetrics and Gynecology 06/05/24 Ship Worker Relationship Specialty Start Date End Date Ander Boateng MD [address] [place] [address] PCP - General 11/30/17 Ship Worker Relationship Specialty Start Date End Date Jb Mandujano MD [address] [place] [address] PCP - General Family Medicine 05/20/24 Osei Malik DO [address] [place] [address] Referring Physician Obstetrics and Gynecology 06/05/24 Flori Gil PA [address] [place] [address] Physician Facilities Plant Engineer Obstetrics and Gynecology 06/05/24 Ship Worker Relationship Specialty Start Date End Date Jb Mandujano MD [address] [place] [address] PCP - General Family Medicine 05/20/24 Osei Malik DO [address] [place] [address] Referring Physician Obstetrics and Gynecology 06/05/24 Flori Gil PA [address] [place] [address] Physician Facilities Plant Engineer Obstetrics and Gynecology 06/05/24 Ship Worker Relationship Specialty Start Date End Date Ander Boateng MD [address] [place] [address] PCP - General 11/30/17 Ship Worker Relationship Specialty Start Date End Date Jb Mandujano MD [address] [facility] [address] [place] [address] PCP - General Family Medicine 05/20/24 Osei Malik DO [address] [place] [address] Referring Physician Obstetrics and Gynecology 06/05/24 Flori Gil PA [address] [place] [address] Physician Facilities Plant Engineer Obstetrics and Gynecology 06/05/24 Ship Worker Relationship Specialty Start Date End Date Jb Mandujano MD [address] [facility] [address] [place] [address] PCP - General Family Medicine 05/20/24 Ship Worker Relationship Specialty Start Date End Date Jb Mandujano MD [address] [facility] [address] [place] [address] PCP - General Family Medicine 05/20/24 Ship Worker Relationship Specialty Start Date End Date Jb Mandujano MD [address] [facility] [address] [place] [address] PCP - General Family Medicine 05/20/24 Ship Worker Relationship Specialty Start Date End Date Jb Mandujano MD 112 [facility] [address] [place] [address] PCP - General Family Medicine 05/20/24 Ship Worker Relationship Specialty Start Date End Date Jb Mandujano MD [address] [facility] [address] [place] [address] PCP - General Family Medicine 05/20/24 Osei Malik DO [address] [place] [address] Referring Physician Obstetrics and Gynecology 06/05/24 Flori Gil PA [address] [place] [address] Physician Facilities Plant Engineer Obstetrics and Gynecology 06/05/24 Ship Worker Relationship Specialty Start Date End Date Jb Mandujano MD 112 [facility] [address] [place] [address] PCP - General Family Medicine 05/20/24 Osei Malik DO [address] [place] [address] Referring Physician Obstetrics and Gynecology 06/05/24 Flori Gil PA [address] [place] [address] Physician Facilities Plant Engineer Obstetrics and Gynecology 06/05/24 Ship Worker Relationship Specialty Start Date End Date Jb Mandujano MD [address] [facility] [address] [place] [address] PCP - General Family Medicine 05/20/24 Osei Malik, DO [address] [place] [address] Referring Physician Obstetrics and Gynecology 06/05/24 Flori Gil PA [address] [place] [address] Physician Facilities Plant Engineer Obstetrics and Gynecology 06/05/24 Ship Worker Relationship Specialty Start Date End Date Jb Mandujano MD [address] [place] [address] [place], [place] [id number] PCP - General Family Medicine 05/20/24 Osei Malik, DO [address] [place] [address] Referring Physician Obstetrics and Gynecology 06/05/24 Flori Gil PA [address] [place] [address] Physician Facilities Plant Engineer Obstetrics and Gynecology 06/05/24 Ship Worker Relationship Specialty Start Date End Date Ander Boateng MD [address] [place] [address] PCP - General 11/30/17 Ship Worker Relationship Specialty Start Date End Date Jb Mandujano MD [address] [place] [address] [place] [address] PCP - General Family Medicine 05/20/24 Osei Malik, DO [address] [place] [address] Referring Physician Obstetrics and Gynecology 06/05/24 Flori Gil PA [address] [place] [address] Physician Facilities Plant Engineer Obstetrics and Gynecology 06/05/24 Ship Worker Relationship Specialty Start Date End Date Jb Mandujano MD [address] [facility] [address] [place] [address] PCP - General Family Medicine 05/20/24 Osei Malik DO [facility] [place] [address] Referring Physician Obstetrics and Gynecology 06/05/24 Flori Gil PA [address] [place] [address] Physician Facilities Plant Engineer Obstetrics and Gynecology 06/05/24 Ship Worker Relationship Specialty Start Date End Date Ander Boateng MD [address] [place] [address] PCP - General 11/30/17 Ship Worker Relationship Specialty Start Date End Date Jb Mandujano MD [address] [address] PCP - General Family Medicine 05/20/24 Osei Malik, DO [address] [place] [address] Referring Physician Obstetrics and Gynecology 06/05/24 Flori Gil PA [address] [place] [address] Physician Facilities Plant Engineer Obstetrics and Gynecology 06/05/24 Goals (unrecognized section and content) Goals may [...] BE BASED ON THE PRIMARY CLINICAL RECORDS. [facility] [employer] [facility]. provides no warranty or guarantee of the accuracy or completeness of information in this document."
--- NOTE | 2024-10-22 16:55 | US_ITS ---
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 BREATHING MOVEMENTS: 2 /2 GROSS BODY MOVEMENTS: 2 / 2 TONE: 2 / 2 QUALITATIVE AMNIOTIC FLUID VOLUME: 2 / 2) PRESENTATION: Cephalic/cephalic HEART RATE: 126 bpm / 133 bpm AMNIOTIC FLUID VOLUME: 7.5 x 5.5 cm / 7.7 x 7.5 cm GESTATIONAL AGE: 30 weeks 4 days US/US OB BPP w non-stress IMPRESSION: 1. Total biophysical profile score baby A: 8 2. Total biophysical profile score baby B: 8) Electronically authenticated by: CHAN SMALL Date: 10/23/2024 07:42
--- NOTE | 2024-10-22 16:55 | US_ITS ---
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 BREATHING MOVEMENTS: 2 /2 GROSS BODY MOVEMENTS: 2 / 2 TONE: 2 / 2 QUALITATIVE AMNIOTIC FLUID VOLUME: 2 / 2) PRESENTATION: Cephalic/cephalic HEART RATE: 126 bpm / 133 bpm AMNIOTIC FLUID VOLUME: 7.5 x 5.5 cm / 7.7 x 7.5 cm GESTATIONAL AGE: 30 weeks 4 days US/US OB BPP w non-stress IMPRESSION: 1. Total biophysical profile score baby A: 8 2. Total biophysical profile score baby B: 8) Electronically authenticated by: CHAN SMALL Date: 10/23/2024 07:42
[2024-10-22 17:36] VITALS: BP 115/58; PULSE 93
--- NOTE | 2024-10-22 17:40 | PC.NURSE ---
Bpp A- 8/8 BPP B- 8/8 MARY A- 7.5 x 5.5 largest MARY B- 7.7x7.5
--- NOTE | 2024-10-22 18:14 | PC.NURSE ---
Fetus A Baseline 135 with moderate variability t/o most of tracing, active FM and accels measuring > 15 x 15. Fetus B Baseline 130 with mostly moderate variability t/o and > 15 x 15 accels. Active FM t/o EFM.
== END 2024-10-22 18:20 | disposition home or self-care (01) ==
LOC: US 05:15 → FBC 16:50
PROVIDERS: PCP Family Medicine; Visit Provider Obstetrics & Gynecology
DX: O30.043 Twin pregnancy, dichorionic/diamniotic, third trimester (principal); Z3A.30 30 weeks gestation of pregnancy
CPT/HCPCS: 76818

== ENCOUNTER 2024-10-25 03:27 | Outpatient (OUT) | payer OTHER, SELFPAY ==
--- OUTSIDE RECORDS SUMMARY | 2024-10-25 03:31 | XMS_ITS | CCD ---
Author Organization [facility] Care Team Providers Care Mental Health Program Director Name Role Phone Unavailable Primary Care Provider Unavailsoniya e Christina Pearce Unavailable Ok Mckeon Unavailable Ibis Renteria Unavailable Unavailable Unavailable CARLOS Renteria Primary Care Provider MD Melodie Alcaraz Attending Provider [phone] MD Álvaro Osborn Referring Provider [phone] CARLOS Davidson Attending Provider JOHNNY Pearce Emergency Provider [phone] Link, Dr. Annalee Torres Attending Unavailab celine [...] Myra Ibis GOODSON Primary Care Provider Myra, SOLDER SPRAYER-C Ibis Winter Primary Care Provider DO Haris Martino Emergency Provider DO Nam Barnes Attending Provider [phone] JB MANDUJANO Primary Care Physician Rinkes, Celeste Admitting Unavailable Rinkes, Celeste Attending Unavailable Jocelin FELIX Attending Unavailable Mae, LAN MANAGER Krista L Attending Unavailable Mae, LAN MANAGER Krista L Attending Unavailable Unavailable Primary Care Provider Unavailabl e Rinkes, Celeste Attending Unavailable Rinkes, Celeste Admitting Unavailable Rinkes, Celeste Attending Unavailable Rinkes, Celeste Admitting Unavailable Jb Mandujano MD Primary Care Provider Osei Malik DO Unavailable Flori Sam Unavailable Ander Boateng MD Primary Care Provider [facility] Un[facility] Admitting Unavailable Ibis Renteria Primary Care Unavailable Rinkes, Celeste Attending Unavailable Rinkes, Celeste Admitting Unavailable SANTIAGO, AURORA Attending Unavailable SANTIAGO, AURORA Referring Unavailable SANTIAGO, AURORA Referring Unavailable SANTIAGO, AURORA Referring Unavailable SANTIAGO, AURORA Referring Unavailable NOBLE, JYOTI Attending Unavailable NOBLE, JYOTI Attending Unavailable DIEDERICHJOIE E Attending Unavailable NOBLE, JYOTI Attending Unavailable HELENA, OSEI Attending Unavailable RINKES, CELESTE E Attending Unavailable RINKES, CELESTE E Attending Unavailable NAZIA, JB M Attending Unavailable NAZIA, JB M Attending Unavailable HEMMER, CAMILLA Charlton Attending Unavailable HELENA, OSEI Attending Unavailable LOUISE, [...] oxyCODONE; Translations: [acetaminophen-o xycodone] Drug Allergy [facility] Comment on above: no narcotics, GI ups et Chlorhexidine (1 source) Chlorhexidine; Translations: [chlorhexidine topical] Drug Allergy Itching [facility] Corticosteroids (1 source) predniSONE; Translations: [prednisone] Drug Allergy [facility] (15 sources) Morphinan opioid; Translations: [OPIOIDS - MORPHINE ANALOGUES] Propensity to adverse reactions to drug 01-26-20 Other: See Comments [facility] (20 sources) predniSONE; Translations: [predniSONE] Drug Allergy 01-26-20 22 Other: See Comments, Dizziness [facility] (20 sources) prednisoLONE; Translations: [prednisolone] Drug Allergy 01-11-20 22 GI Disturbance [facility] [employer] Other (15 sources) Fludrocortisone; Translations: [Florinef TABS] Drug Allergy Nausea [facility] DO Work Phone: (20 sources) Midodrine; Translations: [midodrine] Drug Allergy 08-13-20 23 GI bleeding [facility] (3 sources) Acetaminophen / oxyCODONE; Translations: [Percocet] Drug Allergy [facility] Repository (4 sources) Chlorhexidine; Translations: [chlorhexidine topical] Drug Allergy Itching [facility] Repository (7 sources) Acetaminophen / oxyCODONE; Translations: [acetaminophen-o xycodone] Drug Allergy 07-07-[address] [facility] [place] Comment on above: no narcotics, GI ups et (20 sources) Acetaminophen / oxyCODONE; Translations: [OXYCODONE-ACETA MINOPHEN] Drug Allergy 02-26-20 24 [facility] (20 sources) Chlorhexidine; Translations: [CHLORHEXIDINE] Drug Allergy 02-21-20 23 Itching [facility] Work Phone: (20 sources) Fludrocortisone; Translations: [FLUDROCORTISONE ] Drug Allergy 07-26-20 22 Nausea [facility] (20 sources) Prednisone Allergy to substance 02-18-20 23 Dizziness [facility] (1 source) predniSONE Drug Allergy 06-08-20 23 [facility] Repository Medications Current Medications Medication Drug Class(es) Dates Sig (Normalized) Sig (Original) [id number] 200 actuat albuterol 0.09 mg/actuat metered dose [...] beclomethasone dipropionate 0.08 mg/actuat metered dose inhaler (18 sources) Corticosteroid Start: Beclomethasone Diprop HFA (Qvar [...] Evra A ctive Inositol-D Chiro-Inositol (OVASITOL PO) (20 sources) Inositol-D Chiro-Inositol (OVASITOL PO) Take by [...] this medication. 14 tablet 08/07/2024 08/14/2024 Active Henriette (No Known Home Meds) (1 source) Start: Henriette (No Known Home Meds) Active June 08, [...] Active Start: 12-11-2023 take 1 capsule by [facility] once daily omeprazole 40 mg Cap-DR 40 mg = 1 cap(s), Oral, Daily, # 30 cap(s), Refills(s) 1, Pharmacy: [facility] 1155, 168.3, cm, 12/11/23 13:07:00 EDT, Height/Length [...] 30 Refills: 6 Ordered: 13-Jun-2023 Boy Cota APRN-MENTAL HEALTH ORDERLY, Tabatha Start : 13-Jun-2023 Active methotrexate 2.5 [...] Active Start: 07-10-2022 take 0.5 tablet by [facility] three times daily Midodrine HCl - [...] tablet (4 sources) Leukotriene Receptor Antagonist Start: 02-25-20 22 take 1 tablet by mouth once [...] tolerance complicating ; childbirth; or the puerperium (11 sources) Gestational diabetes mellitus; Translations: [Gestational diabetes [...] of ] 09-18-2024 Episodic Residual codes; unclassified (11 sources) Gestation period, 29 weeks; Translations: [29 [...] Test Name Value Interpretation Reference Range Facility No Panel InformationOrdered By: Radiologist Radiology on 10-23-2024 [facility] Work Phone: No Panel Informationon 10-23 Radiology Study observation (narrative) [facility] OB BPP W NON-STRESS on 10-23-2024 [place] [address] Ultrasound Report Signed Patient: MADYSON MAI MR#: [id number] : 2000 Acct:[id number] Age/Sex: 23 / F ADM Date: 10/22/24 Loc: US Attending Dr: Osei Malik D.O. Ordering Physician: Osei Malik D.O. Date of Service: 10/22/24 Procedure(s): US OB BPP w non-stress Accession Number(s): [id number] cc: JB MANDUJANO ; Osei Malik D.O. 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 BREATHING MOVEMENTS: 2 /2 GROSS BODY MOVEMENTS: 2 / 2 TONE: 2 / 2 QUALITATIVE AMNIOTIC FLUID VOLUME: 2 / 2) PRESENTATION: Cephalic/cephalic HEART RATE: 126 bpm / 133 bpm AMNIOTIC FLUID VOLUME: 7.5 x 5.5 cm / 7.7 x 7.5 cm GESTATIONAL AGE: 30 weeks 4 days US/US OB BPP w non-stress IMPRESSION: 1. Total biophysical profile score baby A: 8 2. Total biophysical profile score baby B: 8) Electronically authenticated by: CHAN SMALL Date: 10/23/2024 07:42 Dictated By: Chan Small M.D. Signed By: 10/23/24 0745 DD/ 0742 TD/TT: Spirits Model: [facility] Radiology, Radiologi MD billy - 10/23/[address] [address] Ultrasound Report Signed Patient: MADYSON MAI MR#: [id number] : 2000 Acct:[id number] Age/Sex: 23 / F ADM Date: 10/22/24 Loc: US Attending Dr: Osei Malik D.O. Ordering Physician: Osei Malik D.O. Date of Service: 10/22/24 Procedure(s): US OB BPP w non-stress Accession Number(s): [id number] cc: JB MANDUJANO ; Osei Malik D.O. 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 BREATHING MOVEMENTS: 2 /2 GROSS BODY MOVEMENTS: 2 / 2 TONE: 2 / 2 QUALITATIVE AMNIOTIC FLUID VOLUME: 2 / 2) PRESENTATION: Cephalic/cephalic HEART RATE: 126 bpm / 133 bpm AMNIOTIC FLUID VOLUME: 7.5 x 5.5 cm / 7.7 x 7.5 cm GESTATIONAL AGE: 30 weeks 4 days US/US OB BPP w non-stress IMPRESSION: 1. Total biophysical profile score baby A: 8 2. Total biophysical profile score baby B: 8) Electronically authenticated by: CHAN SMALL Date: 10/23/2024 07:42 Dictated By: Chan Small M.D. Signed By: 10/23/24 0745 DD/ 0742 TD/TT: Spirits Model: [place] [address] Ultrasound Report Signed Patient: MADYSON MAI MR#: [id number] : 2000 Acct:[id number] Age/Sex: 23 / F ADM Date: 10/22/24 Loc: US Attending Dr: Osei Malik D.O. Ordering Physician: Osei Malik D.O. Date of Service: 10/22/24 Procedure(s): US OB BPP w non-stress Accession Number(s): [id number] cc: JB MANDUJANO ; Osei Malik D.O. 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 BREATHING MOVEMENTS: 2 /2 GROSS BODY MOVEMENTS: 2 / 2 TONE: 2 / 2 QUALITATIVE AMNIOTIC FLUID VOLUME: 2 / 2) PRESENTATION: Cephalic/cephalic HEART RATE: 126 bpm / 133 bpm AMNIOTIC FLUID VOLUME: 7.5 x 5.5 cm / 7.7 x 7.5 cm GESTATIONAL AGE: 30 weeks 4 days US/US OB BPP w non-stress IMPRESSION: 1. Total biophysical profile score baby A: 8 2. Total biophysical profile score baby B: 8) Electronically authenticated by: CHAN SMALL Date: 10/23/2024 07:42 Dictated By: Chan Small M.D. Signed By: 10/23/24 0745 DD/ 0742 TD/TT: Spirits Model: [facility] Radiology, Radiologi MD billy - 10/23/[address] [address] Ultrasound Report Signed Patient: MADYSON MAI MR#: [id number] : 2000 Acct:[id number] Age/Sex: 23 / F ADM Date: 10/22/24 Loc: US Attending Dr: Osei Malik D.O. Ordering Physician: Osei Malik D.O. Date of Service: 10/22/24 Procedure(s): US OB BPP w non-stress Accession Number(s): [id number] cc: JB MANDUJANO ; Osei Malik D.O. 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 BREATHING MOVEMENTS: 2 /2 GROSS BODY MOVEMENTS: 2 / 2 TONE: 2 / 2 QUALITATIVE AMNIOTIC FLUID VOLUME: 2 / 2) PRESENTATION: Cephalic/cephalic HEART RATE: 126 bpm / 133 bpm AMNIOTIC FLUID VOLUME: 7.5 x 5.5 cm / 7.7 x 7.5 cm GESTATIONAL AGE: 30 weeks 4 days US/US OB BPP w non-stress IMPRESSION: 1. Total biophysical profile score baby A: 8 2. Total biophysical profile score baby B: 8) Electronically authenticated by: CHAN SMALL Date: 10/23/2024 07:42 Dictated By: Chan Small M.D. Signed By: 10/23/24 0745 DD/ 0742 TD/TT: Spirits Model: [facility] Urinalysis macro (dipstick) panel (U)on 10-15-2024 Bilirubin, UA Negative Negative - 4(70) +++ mg/dL [facility] Blood, UA Negative Negative - 50 Vasu/mcL [facility] Clarity, UA Clear [facility] Color, UA Yellow [facility] Glucose, UA Positive Negative - 2000(110) ++++ mg/dL [facility] Comment on above: 500 Interpretation and review of laboratory results Abnormal [facility] Ketones, UA Negative Negative - 160(16) ++++ mg/dL [facility] Leukocytes, UA Positive Negative - 500+++ Conrad/mcL [facility] Comment on above: small Nitrite, UA Negative Negative - Positive [facility] pH, UA 6 5 - 9 [facility] Protein, UA Trace Negative - 2000(20) ++++ mg/dL [facility] Spec Grav, UA 1.02 1 - 1.03 [facility] Urobilinogen, UA 0.2 0.2 - 12 mg/dL [facility] Urinalysis macro (dipstick) panel (U)on 10-02-2024 Bilirubin, UA Negative Negative - 4(70) +++ mg/dL [facility] Blood, UA Negative Negative - 50 Vasu/mcL [facility] Clarity, UA Clear [facility] Color, UA Yellow [facility] Glucose, UA Negative Negative - 1999(110) ++++ mg/dL [facility] Interpretation and review of laboratory results Abnormal [facility] Ketones, UA Positive Negative - 160(16) ++++ mg/dL [facility] Comment on above: 40 Leukocytes, UA Trace Negative - 500+++ Conrad/mcL [facility] Nitrite, UA Negative Negative - Positive [facility] pH, UA 6 5 - 9 [facility] Protein, UA Positive Negative - 2000(20) ++++ mg/dL [facility] Comment on above: 30 Spec Grav, UA 1.03 1 - 1.03 [facility] Urobilinogen, UA 0.2 0.2 - 12 mg/dL [facility] TBH UA (CLEAN/CATCH) CONTINUOUS VULCANIZING MACHINE OPERATOR/YOUSIF RO IF IND.on 09-25-2024 BILIRUBIN URINE Negative NEGATIVE [facility] BLOOD URINE Negative NEGATIVE [facility] Clarity (U) CLEAR CLEAR [facility] Color (U) LT. YELLOW YELLOW [facility] GLUCOSE URINE UA 250 mg/dL Abnormal NEGATIVE [facility] Interpretation and review of laboratory results Abnormal [facility] Ketones Ql (U) Negative NEGATIVE mg/dL [facility] Leukocyte esterase Test strip Ql (U) SMALL Abnormal NEGATIVE [facility] NITRITE URINE Negative NEGATIVE [facility] pH (U) 6.0 [pH] 5.0 - 9.0 [facility] PROTEIN URINE Negative NEG/TRACE mg/dL [facility] SPECIFIC GRAVITY URINE 1.020 1.005 - 1.025 [facility] URINE MICROSCOPIC INDICATED YES [facility] UROBILINOGEN URINE 0.2 EU/dL 0.2 - 1.0 EU/dL [facility] Urinalysis macro (dipstick) panel (U)on 09-18-2024 Bilirubin, UA Negative Negative - 4(70) +++ mg/dL [facility] Blood, UA Negative Negative - 50 Vasu/mcL [facility] Clarity, UA Clear [facility] Color, UA Yellow [facility] Glucose, UA Positive Negative - 1999(110) ++++ mg/dL [facility] Comment on above: 100 Interpretation and review of laboratory results Abnormal [facility] Ketones, UA Negative Negative - 160(16) ++++ mg/dL [facility] Leukocytes, UA Positive Negative - 500+++ Conrad/mcL [facility] Comment on above: small Nitrite, UA Negative Negative - Positive [facility] pH, UA 7 5 - 9 [facility] Protein, UA Trace Negative - 1999(20) ++++ mg/dL [facility] Spec Grav, UA 1.02 1 - 1.03 [facility] Urobilinogen, UA 0.2 0.2 - 12 mg/dL [facility] Urinalysis macro (dipstick) panel (U)on 09-03-2024 Bilirubin, UA Negative Negative - 4(70) +++ mg/dL [facility] Blood, UA Negative Negative - 50 Vasu/mcL [facility] Clarity, UA Clear [facility] Color, UA Yellow [facility] Glucose, UA Many Negative - 1999(110) ++++ mg/dL [facility] Interpretation and review of laboratory results Abnormal [facility] Ketones, UA Positive Negative - 160(16) ++++ mg/dL [facility] Leukocytes, UA Positive Negative - 500+++ Conrad/mcL [facility] Nitrite, UA Negative Negative - Positive [facility] pH, UA 6.5 5 - 9 [facility] Protein, UA Moderate Negative - 1999(20) ++++ mg/dL [facility] Spec Grav, UA 1.025 1 - 1.03 [facility] Urobilinogen, UA 0.2 0.2 - 12 mg/dL [facility] GLUCOSE TOLERANCE 3 HOURon 1 11-02-2023 GLUCOSE TOLERANCE 3 HOUR High mg/dL [facility] Comment on above: GLU FAST 86 (<95) Co l: 09/01/24 0818 GLU 1HR 162 (<180) Col: 09/01/24 0919 GLU 2HR 156H (<155) Col: 09/01/24 1019 GLU 3HR 110 (<140) Col: 09/01/24 1119 Interpretation and review of laboratory results Abnormal [facility] ALL CBC WITH AUTO DIFFon BASOPHILS ABSOLUTE AUTO 0 [facility] Basophils/100 WBC (Bld) 0.2 % 0.2 - 2.0 % [facility] Eosinophils/100 WBC (Bld) 0.7 % Low 0.9 - 7.0 % [facility] Erythrocyte distribution width (RBC) [Ratio] 13.6 % 11.0 - 15.0 % [facility] Hematocrit (Bld) [Volume fraction] 32.9 % Low 36.0 - 48.0 % [facility] Hemoglobin (Bld) [Mass/Vol] 11.1 g/dL Low 12.0 - 16.0 g/dL [facility] IMMATURE GRANULOCYTES ABS AUTO 0.11 High [facility] Immature granulocytes/100 WBC (Bld) 1.1 % High 0.0 - 0.5 % [facility] Interpretation and review of laboratory results Abnormal [facility] LYMPHOCYTES ABSOLUTE AUTO 1.3 [facility] Lymphocytes/100 WBC (Bld) 13 % Low 20.5 - 60.0 % [facility] MCH (RBC) [Entitic mass] 29.6 pg 26.7 - 34.0 pg [facility] MCHC (RBC) [Mass/Vol] 33.7 g/dL 29.9 - 35.2 g/dL [facility] MCV (RBC) [Entitic vol] 87.7 fL 81.0 - 99.0 fL [facility] MONOCYTES ABSOLUTE AUTO 0.6 [facility] Monocytes/100 WBC (Bld) 5.5 % 1.7 - 12.0 % [facility] NEUTROPHILS ABSOLUTE AUTO 7.9 High [facility] Neutrophils/100 WBC (Bld) 79.5 % High 43.0 - 75.0 % [facility] Platelet mean volume (Bld) [Entitic vol] 10.3 fL 9.5 - 13.5 fL [facility] TBH EO # 0.1 [facility] TB PLT [address] [facility] RBC 3.75 Low [facility] WBC 9.9 [facility] IGP,APTIMA HPV,AGE GDLNon AGE GDLN ACOG TESTING Note . [facility] Comment on above: TESTS RESULT FLAG [facility] REF [facility]ANGE LAB Clinician Provided Cytology Information Source.............Cervix No. of containers..01 ThinPrep Vial Age Algo ACOG Maureen... FLAG LEGEND: L-Low Normal,H-High Normal,LL-Alert Low,HH-Alert High <-Panic Low,>-Panic High,A-Abnormal,AA-Critical Abnormal Performed at: 01 =G [facility] [address] Toya Wilson MD, IGP, RFX APTIMA HPV ASCU Note . [facility] Comment on above: TESTS RESULT FLAG [facility] REF [facility]ANGE LAB DIAGNOSIS: 02 NEGATIVE FOR INTRAEPITHELIAL LESION OR MALIGNANCY. Specimen adequacy: 02 Satisfactory for evaluation. No endocervical component is identified. Performed by: 02 Imelda Miranda Lamp Inspector (ASC) . 02 Note: Note 02 The Pap [...] <-Panic Low,>-Panic High,A-Abnormal,AA-Critical Abnormal Performed at: [address] [facility] [address] Toya Wilson MD, Performed at: =G - [facility] [address] [id number] Nipple Machine Operator: Toya Wilson MD, Phone: [phone] Performed at: - [facility] [id number] Nipple Machine Operator: Toya Wilson MD, Phone: [phone] SPATULA-ALONE CERVIX [facility] AFP, SERUM, OPEN SPINA BIFID Aon 08-13-2024 AFP MOM 2.24 . [facility] AFP VALUE 103.1 ng/mL . [facility] COMMENT: Comment . [facility] Comment on above: Joyce Reina , Ph.D., [facility] Director References: Available Upon Request. Multiples Of Median Cutoffs For AFP Elevations Harrington 2.5 Black 2.8 IDD 2.0 Twins 4.5 Abbreviation Definitions IDD - Insulin Dep Diabetes OSBR - Open Spina Bifida Risk For further inquiries contact [facility] at [phone]. This test was developed and its performance characteristics determined by [facility]. It has not been cleared or approved by the Food and Drug Administration. Performed at: [facility] [address] [place], [place] [id number] Nipple Machine Operator: Angel Regan [facility], Phone: [phone] GEST. AGE ON COLLECTION DATE 20.3 . weeks [facility] GESTAT. AGE BASED ON LMP . [facility] Comment on above: Recalculations are n ot recommended when gestational dating by LMP and ultrasound are within 10 days. INSULIN DEP DIABETES No . [facility] INTERPRETATION Comment . [facility] Comment on above: Interpretation: Scre en Negative [...] Customer Services to discuss available options. The [employer] recommends amniocentesis be offered to women age 35 and older. [age] [facility] MULTIPLE GESTATION Twins . [facility] OSBR RISK 1 IN 1081 . [facility] RACE . [facility] RESULTS Report . [facility] TEST RESULTS: Negative . [facility] WEIGHT 219 . lbs [facility] N N LMP [id number] 3 19 N 2 Y 219 N N N N N White/ [facility] US for pregnancyon 4 THIS EXAM WAS PERFOR MED AT [facility] Coding ====== Procedures 55474: Comprehensive Detailed Anatomy Ultrasound 71228: Comprehensive Detailed Anatomy Ultrasound- Additional Fetus 15520: Transvaginal Ultrasound (OB) Indication ======== Di-Di twin [...] 0 lb 13 oz EFW by Hadlock (ADY-DV-MC-FL) EFW discordance 10.9 % Head / Face / Neck Biometry: Cephalic index 0.81 73% Nicolaides Process Improvement Analyst 6.4 mm CM 4.4 mm 26% Nicolaides [...] 0 lb 14 oz EFW by Hadlock (EBV-YF-SS-FL) EFW discordance 10.9 % Head / Face / Neck Biometry: Cephalic index 0.71 1% Nicolaides Process Improvement Analyst 6.8 mm CM 4.3 mm 23% Nicolaides [...] - 08/13/2024 THIS EXAM WAS PERFORMED AT [facility] Coding ====== Procedures 25271: Comprehensive Detailed Anatomy Ultrasound 69425: Comprehensive Detailed Anatomy Ultrasound- Additional Fetus 28258: Transvaginal Ultrasound (OB) Indication ======== Di-Di twin [...] 0 lb 13 oz EFW by Hadlock (WWA-DH-PP-FL) EFW discordance 10.9 % Head / Face / Neck Biometry: Cephalic index 0.81 73% Nicolaides Process Improvement Analyst 6.4 mm CM 4.4 mm 26% Nicolaides [...] 0 lb 14 oz EFW by Hadlock (CME-WC-PI-FL) EFW discordance 10.9 % Head / Face / Neck Biometry: Cephalic index 0.71 1% Nicolaides Process Improvement Analyst 6.8 mm CM 4.3 mm 23% Nicolaides [...] Heart / Thorax 4-chamber view. 3-vessel view. 3-fxqqzy-[id number] view. Interventricular septum. Diaphragm. Abdomen Right renal [...] Nuchal fold. F (more content not included)... [facility] Radiology Study observation (narrative) [facility] US for pregnancyOrdered By: Radiologist Radiology on 08-13-2024 [facility] Work Phone: RECURRENT VAGINITIS (HTRX)on 08-07-2024 ATOPOBIUM VAGINAE 29.356 Abnormal [facility] ATOPOBIUM VAGINAE Detected Abnormal [facility] BVAB 2,3 (BACTERIAL VAGINOSIS ASSOCIATED BACTERIA 2, 3); MOBILUNCUS SPP 0 [facility] BVAB 2,3 (BACTERIAL VAGINOSIS ASSOCIATED BACTERIA 2, 3); MOBILUNCUS SPP Not detected [facility] SANTHOSH ALBICANS, PARAPSILOSIS, TROPICALIS 0 [facility] SANTHOSH ALBICANS, PARAPSILOSIS, TROPICALIS Not detected [facility] SANTHOSH GLABRATA 0 [facility] SANTHOSH GLABRATA Not detected [facility] SANTHOSH KRUSEI 0 [facility] SANTHOSH KRUSEI Not [facility]AT[facility] 0 [facility] CHLAMYDIA TRACHOMATIS Not detected N [facility] GARDNERELLA VAGINALIS 0 [facility] GARDNERELLA VAGINALIS Not detected N [facility] Interpretation and review of laboratory results Abnormal [facility] MEGASPHAERA (TYPES 1, 2) 0 [facility] MEGASPHAERA (TYPES 1, 2) Not detected [facility] MYCOPLASMA GENITALIUM 0 [facility] MYCOPLASMA GENITALIUM Not detected N [facility] NEISSERIA GONORRHOEAE 0 [facility] NEISSERIA GONORRHOEAE Not detected N [facility] TRICHOMONAS VAGINALIS 0 [facility] TRICHOMONAS VAGINALIS Not detected N [facility] Urinalysis macro (dipstick) panel (U)on 08-05-2024 Bilirubin, UA Negative Negative - 4(70) +++ mg/dL [facility] Blood, UA Negative Negative - 50 Vasu/mcL [facility] Clarity, UA Clear [facility] Color, UA Yellow [facility] Glucose, UA Negative Negative - 1999(110) ++++ mg/dL [facility] Interpretation and review of laboratory results Normal [facility] Ketones, UA Negative Negative - 160(16) ++++ mg/dL [facility] Leukocytes, UA Negative Negative - 500+++ Conrad/mcL [facility] Nitrite, UA Negative Negative - Positive [facility] pH, UA 5.5 5 - 9 [facility] Protein, UA Negative Negative - 1999(20) ++++ mg/dL [facility] Spec Grav, UA 1.02 1 - 1.03 [facility] Urobilinogen, UA 1.0 0.2 - 12 mg/dL [facility] Urinalysis macro (dipstick) panel (U)on 07-03-2024 Bilirubin, UA Negative Negative - 4(70) +++ mg/dL [facility] Blood, UA Negative Negative - 50 Vasu/mcL [facility] Clarity, UA Clear [facility] Color, UA Yellow [facility] Glucose, UA Positive Negative - 1999(110) ++++ mg/dL [facility] Comment on above: 500 Interpretation and review of laboratory results Abnormal [facility] Ketones, UA Negative Negative - 160(16) ++++ mg/dL [facility] Leukocytes, UA Negative Negative - 500+++ Conrad/mcL [facility] Nitrite, UA Negative Negative - Positive [facility] pH, UA 6.0 5 - 9 [facility] Protein, UA Negative Negative - 1999(20) ++++ mg/dL [facility] Spec Grav, UA 1.015 1 - 1.03 [facility] Urobilinogen, UA 0.2 0.2 - 12 mg/dL [facility] Urinalysis macro (dipstick) panel (U)Ordered By: Ibis Sandoval on 06-04-2024 Bilirubin, UA Negative Negative - 4(70) +++ mg/dL [facility] Blood, UA Positive Negative - 50 Vasu/mcL [facility] Comment on above: trace-intact Clarity, UA Clear [facility] Color, UA Yellow [facility] Glucose, UA Negative Negative - 1999(110) ++++ mg/dL [facility] Interpretation and review of laboratory results Abnormal [facility] Ketones, UA Negative Negative - 160(16) ++++ mg/dL [facility] Leukocytes, UA Trace Negative - 500+++ Conrad/mcL [facility] Nitrite, UA Negative Negative - Positive [facility] pH, UA 5.5 5 - 9 [facility] Protein, UA Negative Negative - 1999(20) ++++ mg/dL [facility] Spec Grav, UA 1.005 1 - 1.03 [facility] Urobilinogen, UA 0.2 0.2 - 12 mg/dL [facility] ALL CBC WITH AUTO DIFFon BASOPHILS ABSOLUTE AUTO 0.0 [facility] Basophils/100 WBC (Bld) 0.5 % 0.2 - 2.0 % [facility] Eosinophils/100 WBC (Bld) 0.5 % Low 0.9 - 7.0 % [facility] Erythrocyte distribution width (RBC) [Ratio] 11.9 % 11.0 - 15.0 % [facility] IMMATURE GRANULOCYTES ABS AUTO 0.03 [facility] Immature granulocytes/100 WBC (Bld) 0.4 % 0.0 - 0.5 % [facility] Interpretation and review of laboratory results Abnormal [facility] LYMPHOCYTES ABSOLUTE AUTO 1.8 [facility] Lymphocytes/100 WBC (Bld) 23.3 % 20.5 - 60.0 % [facility] MCH (RBC) [Entitic mass] 29.7 pg 26.7 - 34.0 pg [facility] MCHC (RBC) [Mass/Vol] 34.9 g/dL 29.9 - 35.2 g/dL [facility] MCV (RBC) [Entitic vol] 85.1 fL 81.0 - 99.0 fL [facility] MONOCYTES ABSOLUTE AUTO 0.5 [facility] Monocytes/100 WBC (Bld) 6.3 % 1.7 - 12.0 % [facility] NEUTROPHILS ABSOLUTE AUTO 5.4 [facility] Neutrophils/100 WBC (Bld) 69.0 % 43.0 - 75.0 % [facility] Platelet mean volume (Bld) [Entitic vol] 10.3 fL 9.5 - 13.5 fL [facility] TBH EO # 0.0 [facility] TBH PLT [address] [facility] RBC 4.55 [facility] WBC 7.8 [facility] - Hematology and Cell countson 05-24-2024 Hematocrit (Bld) [Volume fraction] 38.7 % [facility] Hemoglobin (Bld) [Mass/Vol] 13.5 g/dL [facility] No Panel Informationon 05-24 [facility] HCG ( test) Ql (U)o n 05-23-2024 Interpretation and review of laboratory results Abnormal [facility] Preg Test, Ur Positive [facility] Urinalysis macro (dipstick) panel (U)on 05-23-2024 Bilirubin, UA Negative Negative - 4(70) +++ mg/dL [facility] Blood, UA Negative Negative - 50 Vasu/mcL [facility] Clarity, UA Clear [facility] Color, UA Yellow [facility] Glucose, UA Negative Negative - 2000(110) ++++ mg/dL [facility] Interpretation and review of laboratory results Normal [facility] Ketones, UA Negative Negative - 160(16) ++++ mg/dL [facility] Leukocytes, UA Negative Negative - 500+++ Conrad/mcL [facility] Nitrite, UA Negative Negative - Positive [facility] pH, UA 7.0 5 - 9 [facility] Protein, UA Negative Negative - 1999(20) ++++ mg/dL [facility] Spec Grav, UA 1.025 1 - 1.03 [facility] Urobilinogen, UA 1.0 0.2 - 12 mg/dL [facility] CHEMISTRYOrdered By: SYSTEM SYSTEM on 04-12-2024 [...] Progesterone Lvl 31.70 ng/mL Invalid Interpretation Code [facility] Comment on above: Result Comment: 'F N ON FOLLICULAR = 0.10 - 0.60' 'LUTEAL = 3.00 - 17.5' 'MIDLUTEAL = 3.30 - 18.6' 'POST-MENOPAUSE = 0.10 - 0.40' '-FIRST TRIMESTER = 8.30 - 66.5' 'SECOND TRIMESTER = 18.9 - 66.1' 'THIRD TRIMESTER = 35.8 - 312.4' 'MALES = 0.14 - 2.06' Performed By: #### 2 [id number] #### [facility] [address] [place] [id number] CHEMISTRYOrdered By: SYSTEM SYSTEM on 03-14-2024 Progesterone [...] Consent for Treatmenton 02-23 Consent for Treatment [id number]#[id number] Normal [facility] Physician Orderon 03-14-2024 Physician Order [id number]#[id number] Normal [facility] Progesteroneon 03-14-2024 Progesterone Lvl 16.15 ng/mL Invalid Interpretation Code [facility] Comment on above: Result Comment: 'F N ON FOLLICULAR = 0.10 - 0.60' 'LUTEAL = 3.00 - 17.5' 'MIDLUTEAL = 3.30 - 18.6' 'POST-MENOPAUSE = 0.10 - 0.40' '-FIRST TRIMESTER = 8.30 - 66.5' 'SECOND TRIMESTER = 18.9 - 66.1' 'THIRD TRIMESTER = 35.8 - 312.4' 'MALES = 0.14 - 2.06' Performed By: #### 2 [id number] #### [facility] [address] [place] [address] Ambulatory Visit Summaryon 0 12-11-2023 Ambulatory Visit [...] 11:20 AM EDT With: Krista Daley Where: [facility] Medicine Neena Normal [facility] Medicine Office/Clini c Noteon 12-11-2023 Family Medicine Office/Clinic Note HPI Staff Madyson is a 23 year old female presenting to establish care Establish Care: History: Any previous diagnosis: POTS (11/30/23) History of seeing any specialist: Jyoti Dickey [facility]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 Class 1 obesity due to excess calories in adult (E66.09: Other obesity due to excess calories) see above Ordered: omeprazole, 40 mg = 1 cap(s), Oral, Daily, # 30 cap(s), Refills(s) 1, Pharmacy: [facility], 168.3, cm, 12/11/23 13:07:00 EDT, Height/Length Dosing, 93.6, kg, 12/11/23 13:07:00 EDT, Weight Dosing 4. Nonsmoker (Z78.9: Other specified health status) continue not smoking Ordered: omeprazole, 40 mg = 1 cap(s), Oral, Daily, # 30 cap(s), Refills(s) 1, Pharmacy: [facility], 168.3, cm, 12/11/23 13:07:00 EDT, Height/Length [...] 03/05/2002 Recorded (more content not included)... Normal [facility] Comment on above: Result Comment: Elec tronically Signed By: Krista Daley.braxton\Date and Time Signed: 12/11/23 13:32 EDT CNOVon 11-30-2023 CNOV Office Visit (NENMMN ) ----- MADYSON MAI ([id number]) 2 F Date Time Provider Department 11/30/23 10:00 AM JYOTI DICKEY NENMMN During your visit today, we recorded the following information about you: Pulse Blood pressure Weight Height 84/minute 118/79 93 kg 1.651 m Jyoti Dickey PA-C 11/30/2023 11:14 AM Signed [facility] New Patient Evaluation Madyson [...] experienced LOC while walking up the stairs. [place] prodromal symptoms including lightheadedness and tunnel vision. [...] Urination: + (more content not included)... Normal [facility] ECHOon 11-12-2023 Echocardiography Echocardiography Rep ort: Transthoracic Echo [facility] A17 Date of service: 11/12/2023 1:08:10 PM Ordering physician: AURORA SANTIAGO Indication: Initial evaluation [...] * * Final * * * [employer] Medical Image : [id number] Normal [facility] CNOVon 10-10-2023 CNOV Office Visit (NEADMN ) ----- MADYSON MAI ([id number]) 2 F Date Time Provider Department 10/10/23 2:00 PM AURORA SANTIAGO NEADMTawana During your visit today, we recorded the following information about you: Pulse Blood pressure Weight Height 108/minute 119/85 93 kg 1.651 m Aurora Santiago PA-C 10/10/2023 4:33 PM Signed [facility] New Patient Evaluation CHIEF [...] on BC (more content not included)... Normal [facility] Quantiferon-TB Plus (Client Incubated)on 07-26-2023 Gamma interferon background IA Qn (Bld) 0.01 International_Unit/mL Invalid Interpretation Code [facility] Comment on above: Performed By: #### 1 [id number] #### [facility] [address] [place] [address] M. tuberculosis stim IFN-g by CD4+ CD8+ T-cells Qn (Bld) 0.30 International_Unit/mL Invalid Interpretation Code [facility] Comment on above: Performed By: #### 1 [id number] #### [facility] [address] [place] [address] M. tuberculosis stim IFN-g by CD4+ T-cells Qn (Bld) 0.23 International_Unit/mL Invalid Interpretation Code [facility] Comment on above: Performed By: #### 1 [id number] #### [facility] [address] [place] [address] M. tuberculosis stim IFN-g Ql (Bld) [Interp] Negative Invalid Interpretation Code Negative [facility] Comment on above: Result Comment: No [...] interferon gamma. Chemiluminescence immunoassay methodology Performed at: [facility] [id number] PhD Rubio Vinson Performed By: #### 1 [id number] #### [facility] [address] [place] [address] Mitogen stimulated gamma interferon Qn (Bld) >10.00 Invalid Interpretation Code [facility] Comment on above: Performed By: #### 1 [id number], [id number] #### [facility] [address] [place] [address] Service comment (Unsp spec) [Interp] Comment Invalid Interpretation Code [facility] Comment on above: Result Comment: Link [...] for the test. Performed By: #### 1 [id number], [id number], [id number], [id number] #### [facility] [address] [place] [address] Hep Bs Abon 07-25-2023 HBV surface Ab Ql (S) Non-Reactive Invalid Interpretation Code [facility] Comment on above: Result Comment: Non Reactive: Inconsistent with immunity, less than 10 mIU/mL Reactive: Consistent with immunity, greater than 9.9 mIU/mL Performed at: [employer] [id number] PhD Rubio Vinson Performed By: #### 1 [id number], [id number], [id number], [id number] #### [facility] [address] [place] [address] Measles/Mumps/Rubella Immuni tyon 07-25-2023 MeV IgG IA Qn (S) 34.3 A unit/mL Invalid Interpretation Code Immune >16.4 [facility] Comment on above: Result Comment: Nega tive <13.5 Equivocal 13.5 - 16.4 Positive >16.4 Presence of antibodies to Rubeola is presumptive evidence of immunity except when acute infection is suspected. Performed By: #### 1 [id number], [id number] #### [facility] [address] [place] [address] MuV IgG IA Qn (S) <9.0 Low Immune >10.9 [facility] Comment on above: Result Comment: Nega tive <9.0 Equivocal 9.0 - 10.9 Positive >10.9 A positive result generally indicates past exposure to Mumps virus or previous vaccination. Performed at: [facility] [id number] PhD Rubio Vinson Performed By: #### 1 [id number], [id number], [id number] #### [facility] [address] [place] [address] Rubella virus IgG Qn (S) 1.53 [IU]/mL Invalid Interpretation Code Immune >0.99 [facility] Comment on above: Result Comment: Non- immune <0.90 Equivocal 0.90 - 0.99 Immune >0.99 Performed By: #### 1 [id number], [id number], [id number] #### [facility] [address] [place] [address] Varic IgGon 07-25-2023 VZV IgG IA Qn (S) 475 Invalid Interpretation Code Immune >165 [facility] Comment on above: Result Comment: Nega tive <135 Equivocal 135 - 165 Positive >165 A positive result generally indicates exposure to the pathogen or administration of specific immunoglobulins, but it is not indication of active infection or stage of disease. Performed at: [facility] [id number] PhD Rubio Vinson Performed By: #### 1 [id number], [id number], [id number], [id number] #### [facility] [address] [place] [address] CNOVon 07-10-2023 CNOV Office Visit (ORFWHP ) ----- MADYSON SCHMID ([id number]) 2 F Date Time Provider Department 07/10/23 9:40 AM JOSE ARMANDO GREY ORFWHP During your visit today, we recorded the following information about you: Jose Armando Grey DO 07/10/2023 10:08 AM Signed [facility] Office Visit Documentation Note [facility] [place] HISTORY OF PRESENT ILLNESS (HPI) CHIEF COMPLAINT / REASON FOR VISIT SERVICE DATE: July 10, 2023 PCP: No primary care provider on file. Madyson Schmid is here today at request of Dr. Jose Armando cShmid specifically for consultation of my opinion in regards to the chief complaint listed below. Correspondence will be shared today via the [employer] electronic health record or through regular mail, [...] need to consider PT or personal lines agent. Reaction knee brace Consider [place] toradol, did discuss orthobiologics Follow up: Films prior to visit: Written instructions (see patient instructions) and verbal health education given to patient. Patient verbalizes understanding and agrees with the treatment plan. Jose Armando Grey D.O. [facility] Digital Coordinator, [place] [facility] AND [facility] Program Team Physician, [facility] [employer] Consulting Physician, [place] Martin Nagel, Clinical Rehabilitation Liaison [phone] Referring Provider: SELF [200] Allergies As of [...] Level of (more content not included)... Normal [facility] HEART ABBEVILLEon 07-10 [facility] Tobacco Screening.on 023 Adult depression screening assessment No [facility] 600 DO Work Phone: Tobacco use status CPHS b) No [facility] 600 DO Work Phone: Activated partial thrombopla stin time (aPTT) in platelet poor plasma by coagulation aOrdered By: Haris Martino on 06-08-2023 aPTT Coag (PPP) [Time] 28.9 s 25.1-36.5 [facility] Comment on above: A hematocrit value g reater than 55% may lead to inaccurate results in coagulation testing. Patients having hematocrit values >55% require a special collection tube for coagulation studies. Please contact the laboratory at [phone] for redraw instructions. Alanine aminotransferase [En zymatic activity/volume] in Serum or PlasmaOrdered By: Haris Martino on 06-08-2023 ALT [Catalytic activity/Vol] 42 U/L 7-52 [facility] Albumin [Mass/volume] in Ser um or Plasma by Bromocresol green (BCG) dye binding methoOrdered By: Haris Martino on 06-08-2023 Albumin BCG dye [Mass/Vol] 4.6 g/dL 3.5-5.7 [facility] Alkaline phosphatase [Enzyma tic activity/volume] in Serum or PlasmaOrdered By: Haris Martino on 06-08-2023 ALP [Catalytic activity/Vol] 78 U/L 34-104 [facility] Aspartate aminotransferase [ Enzymatic activity/volume] in Serum or PlasmaOrdered By: Haris Martino on 06-08-2023 AST [Catalytic activity/Vol] 22 U/L 13-39 [facility] Automated erythrocytes count in urine sediment (number/area)Ordered By: Haris Martino on 06-08-2023 RBC Auto (Urine sed) [#/Area] 5-9 [HPF] 0-4 [facility] Automated leukocytes count i n urine sediment (number/area)Ordered By: Haris Martino on 06-08-2023 WBC Auto (Urine sed) [#/Area] 3-4 [HPF] 0-4 [facility] Basophils Auto (Bld) [#/Vol] Ordered By: Haris Martino on 06-08-2023 Basophils (Bld) [#/Vol] 0.1 10*3/uL 0.0-0.2 [facility] Basophils/100 WBC Auto (Bld) Ordered By: Haris Martino on 06-08-2023 Basophils/100 WBC (Bld) 1.0 % . [facility] Bilirubin Test strip Ql (U)O rdered By: Haris Martino on 06-08-2023 Bilirubin Ql (U) Negative Negative [facility] Bilirubin.direct [Mass/volum e] in Serum or PlasmaOrdered By: Haris Martino on 06-08-2023 Bilirubin.direct [Mass/Vol] 0.10 mg/dL 0.03-0.18 [facility] Bilirubin.total [Mass/volume ] in Serum or PlasmaOrdered By: Haris Martino on 06-08-2023 Bilirubin [Mass/Vol] 0.4 mg/dL 0.3-1.0 [facility] Calcium [Mass/volume] in Ser um or PlasmaOrdered By: Haris Martino on 06-08-2023 Calcium [Mass/Vol] 9.4 mg/dL 8.6-10.3 [facility] Carbon dioxide, total [Moles /volume] in Serum or PlasmaOrdered By: Haris Martino on 06-08-2023 CO2 [Moles/Vol] 29.3 mmol/L 21.0-31.[address] [facility] Chloride [Moles/volume] in S colin or PlasmaOrdered By: Haris Martino on 06-08-2023 Chloride [Moles/Vol] 104 mmol/L 98-107 [facility] Color Auto (U)Ordered By: Terrell red Salena on 06-08-2023 Color (U) Yellow Yellow [facility] Creatine kinase [Enzymatic a ctivity/volume] in Serum or PlasmaOrdered By: Haris Martino on 06-08-2023 CK [Catalytic activity/Vol] 55 U/L 30-223 [facility] Creatinine [Mass/volume] in Serum or PlasmaOrdered By: Haris Martino on 06-08-2023 Creatinine [Mass/Vol] 0.64 mg/dL 0.60-1.20 [facility] Eosinophils Auto (Bld) [#/Vo l]Ordered By: Haris Martino on 06-08-2023 Eosinophils (Bld) [#/Vol] 0.1 10*3/uL 0.0-0.45 [facility] Eosinophils/100 WBC Auto (Bl d)Ordered By: Haris Martino on 06-08-2023 Eosinophils/100 WBC (Bld) 0.8 % . [facility] Erythrocyte distribution wid th Auto (RBC) [Ratio]Ordered By: Haris Martino on 06-08-2023 Erythrocyte distribution width (RBC) [Ratio] 12.9 % 11.9-15.3 [facility] Fibrin D-dimer [Presence] in Platelet poor plasma by Latex agglutinationOrdered By: Haris Martino on 06-08-2023 Fibrin D-dimer LA Ql (PPP) < 200 ng/mL 0-243 [facility] Comment on above: The [...] coagulation studies. Please contact the laboratory at [phone] for redraw instructions. Globulin Calc (S) [Mass/Vol] Ordered By: Haris Martino on 06-08-2023 Globulin (S) [Mass/Vol] 2.9 g/dL [facility] Glucose [Mass/volume] in Ser um or PlasmaOrdered By: Haris Martino on 06-08-2023 Glucose [Mass/Vol] 79 mg/dL 70-100 [facility] Comment on above: ADA recommended refe rence rangeRandom Glucose Reference Range is dependent on time and content of last meal. Glucose of more than 200 mg/dL in a nonstressed, ambulatory subject supports the diagnosis of Diabetes Mellitus. HCG ( test) IA.rapi d Ql (U)Ordered By: Haris Martino on 06-08-2023 HCG ( test) Ql (U) Negative [facility] Hematocrit Auto (Bld) [Volum e fraction]Ordered By: Haris Martino on 06-08-2023 Hematocrit (Bld) [Volume fraction] 42.4 % 34.0-46.4 [facility] Hemoglobin [Mass/volume] in BloodOrdered By: Haris Martino 06-08-2023 Hemoglobin (Bld) [Mass/Vol] 14.5 g/dL 11.8-15.4 [facility] INR in Platelet poor plasma by Coagulation assayOrdered By: Haris Martino on 06-08-2023 INR Coag (PPP) [Relative time] 1.0 {INR} [facility] Comment on above: INR [...] 06-08-2023 Ketones (U) [Mass/Vol] Negative Negative Fi [facility] Laboratory - UrinalysisOrder ed By: Haris Martino on 06-08-2023 Hyaline casts LM Ql (Urine sed) 0-8 [LPF] 0-8 [facility] [facility] [#/volume] correc matt for nucleated erythrocytes in Blood by Automated counOrdered By: Haris Martino on 06-08-2023 WBC corrected for nucl RBC Auto (Bld) [#/Vol] 8.3 10*3/uL 3.8-11.6 [facility] Lymphocytes Auto (Bld) [#/Vo l]Ordered By: Haris Martino on 06-08-2023 Lymphocytes (Bld) [#/Vol] 3.0 10*3/uL 1.00-4.8 [facility] Lymphocytes/100 WBC Auto (Bl d)Ordered By: Haris Martino on 06-08-2023 Lymphocytes/100 WBC (Bld) 36.0 % . [facility] MCH Auto (RBC) [Entitic mass ]Ordered By: Haris Martino on 06-08-2023 MCH (RBC) [Entitic mass] 29.4 pg 24.7-34.3 [facility] MCHC Auto (RBC) [Mass/Vol]Or dered By: Haris Martino on 06-08-2023 MCHC (RBC) [Mass/Vol] 34.2 g/dL 32.0-35.0 [facility] MCV Auto (RBC) [Entitic vol] Ordered By: Haris Martino on 06-08-2023 MCV (RBC) [Entitic vol] 85.9 fL 80-100 [facility] Monocyte distribution width [Entitic volume] in Blood by AutomatedOrdered By: Haris Martino on 06-08-2023 Monocyte distribution width Auto (Bld) [Entitic vol] 18.39 % 0.00-20.00 [facility] Monocytes Auto (Bld) [#/Vol] Ordered By: Haris Martino on 06-08-2023 Monocytes (Bld) [#/Vol] 0.5 10*3/uL 0.0-0.8 [facility] Monocytes/100 WBC Auto (Bld) Ordered By: Haris Martino on 06-08-2023 Monocytes/100 WBC (Bld) 6.6 % . [facility] Natriuretic peptide B [Mass/ Vol]Ordered By: Haris Martino on 06-08-2023 Natriuretic peptide B (Bld) [Mass/Vol] 9.0 pg/mL 5-100 [facility] Neutrophils Auto (Bld) [#/Vo l]Ordered By: Haris Martino on 06-08-2023 Neutrophils (Bld) [#/Vol] 4.6 10*3/uL 1.8-7.7 [facility] Neutrophils/100 WBC Auto (Bl d)Ordered By: Haris Martino on 06-08-2023 Neutrophils/100 WBC (Bld) 55.6 % . [facility] Nitrite Test strip Ql (U)Ord ered By: Haris Martino on 06-08-2023 Nitrite Ql (U) Negative Negative [facility] No Panel InformationOrdered By: Haris Martino on 06-08-2023 Estimated GFR (CKD-EPI) > 60.0 mL/Min [facility] Creatinine Clearance (Chem 155.50 [facility] Nucleated erythrocytes [Pres ence] in Blood by Automated countOrdered By: Haris Martino on 06-08-2023 Nucleated RBC Auto Ql (Bld) 0.1 /100{WBC} 0-0.5 [facility] Platelet mean volume Auto (B ld) [Entitic vol]Ordered By: Haris Martino on 06-08-2023 Platelet mean volume (Bld) [Entitic vol] 8.2 fL 6.3-10.7 [facility] Platelets Auto (Bld) [#/Vol] Ordered By: Haris Martino on 06-08-2023 Platelets (Bld) [#/Vol] 225 10*3/uL 150-450 [facility] Potassium [Moles/volume] in Serum or PlasmaOrdered By: Haris Martino on 06-08-2023 Potassium [Moles/Vol] 4.0 mmol/L 3.5-5.1 [facility] Protein Auto test strip (U) [Mass/Vol]Ordered By: Haris Martino on 06-08-2023 Protein (U) [Mass/Vol] Negative Negative [facility] Protein [Mass/volume] in Ser um or PlasmaOrdered By: Haris Martino on 06-08-2023 Protein [Mass/Vol] 7.5 g/dL 6.4-8.9 [facility] Prothrombin time (PT)Ordered By: Haris Martino on 06-08-2023 PT Coag (PPP) [Time] 12.2 s 9.0-12.9 [facility] Comment on above: A hematocrit value g reater than 55% may lead to inaccurate results in coagulation testing. Patients having hematocrit values >55% require a special collection tube for coagulation studies. Please contact the laboratory at [phone] for redraw instructions. RBC Auto (Bld) [#/Vol]Ordere d By: Haris Martino on 06-08-2023 RBC (Bld) [#/Vol] 4.94 10*6/uL 3.60-5.00 [facility] Serum or plasma albumin/glob ulin mass ratioOrdered By: Haris Martino on 06-08-2023 Albumin/Globulin [Mass ratio] 1.6 {ratio} [facility] Serum or plasma anion gap de terminationOrdered By: Haris Martino on 06-08-2023 Anion gap [Moles/Vol] 9.7 mmol/L 6.0-15.0 [facility] Serum or plasma non-glucuron idated bilirubin measurement (mass/volume)Ordered By: Haris Martino on 06-08-2023 Bilirubin.indirect [Mass/Vol] 0.3 mg/dL [facility] Sodium [Moles/volume] in Ser um or PlasmaOrdered By: Haris Martino on 06-08-2023 Sodium [Moles/Vol] 139 mmol/L 136-145 [facility] Specific gravity Auto test s trip (U) [Rel density]Ordered By: Haris Martino on 06-08-2023 Specific gravity (U) [Rel density] 1.015 1.001-1.03 0 [facility] Squamous epithelial cells de tection in urine sediment by light microscopyOrdered By: Haris Martino on 06-08-2023 Epithelial cells.squamous LM Ql (Urine sed) 3-4 [HPF] 0-2 [facility] Troponin I.cardiac [Mass/vol ume] in Serum or Plasma by Detection limit <= 0.01 ng/Ordered By: Haris Martino on 06-08-2023 Troponin I.cardiac DL <= 0.01 ng/mL [Mass/Vol] < 2.3 pg/mL 0.0-15.0 [facility] Urea nitrogen [Mass/volume] in Serum or PlasmaOrdered By: Haris Martino on 06-08-2023 Urea nitrogen [Mass/Vol] 10 mg/dL 7-25 [facility] Urine bacteria detection by automated methodOrdered By: Haris Martino on 06-08-2023 Bacteria Auto Ql (U) 1+ None Seen [facility] Urine clarity by refractomet ry automatedOrdered By: Haris Martino on 06-08-2023 Clarity Refractometry automated (U) Clear Clear [facility] Urine glucose measurement by automated test strip (mass/volume)Ordered By: Haris Martino on 06-08-2023 Glucose Auto test strip (U) [Mass/Vol] Normal mg/dL Normal [facility] Urine hemoglobin detection b y automated test stripOrdered By: Haris Martino on 06-08-2023 Hemoglobin Auto test strip Ql (U) Negative Negative [facility] Urine leukocyte esterase det ection by automated test stripOrdered By: Haris Martino on 06-08-2023 Leukocyte esterase Auto test strip Ql (U) 1+ Negative [facility] Urobilinogen Auto test strip (U) [Mass/Vol]Ordered By: Haris Martino on 06-08-2023 Urobilinogen (U) [Mass/Vol] Normal mg/dL Normal [facility] WBC Auto (Bld) [#/Vol]Ordere d By: Haris Martino on 06-08-2023 WBC (Bld) [#/Vol] 8.3 10*3/uL 3.8-11.6 [facility] pH Auto test strip (U)Ordere d By: Haris Martino on 06-08-2023 pH (U) 6.5 [pH] 5.0-9.0 [facility] Alanine aminotransferase [En zymatic activity/volume] in Serum or PlasmaOrdered By: Carlitos Nguyen on 04-25-2023 ALT [Catalytic activity/Vol] 18 U/L 7-52 [facility] Albumin [Mass/volume] in Ser um or Plasma by Bromocresol green (BCG) dye binding methoOrdered By: Carlitos Nguyen on 04-25-2023 Albumin BCG dye [Mass/Vol] 4.8 g/dL 3.5-5.7 [facility] Alkaline phosphatase [Enzyma tic activity/volume] in Serum or PlasmaOrdered By: Carlitos Nguyen on 04-25-2023 ALP [Catalytic activity/Vol] 73 U/L 34-104 [facility] Aspartate aminotransferase [ Enzymatic activity/volume] in Serum or PlasmaOrdered By: Carlitos Nguyen on 04-25-2023 AST [Catalytic activity/Vol] 18 U/L 13-39 [facility] Bilirubin.total [Mass/volume ] in Serum or PlasmaOrdered By: Carlitos Nguyen on 04-25-2023 Bilirubin [Mass/Vol] 0.5 mg/dL 0.3-1.0 [facility] Calcium [Mass/volume] in Ser um or PlasmaOrdered By: Carlitos Nguyen on 04-25-2023 Calcium [Mass/Vol] 9.9 mg/dL 8.6-10.3 [facility] Carbon dioxide, total [Moles /volume] in Serum or PlasmaOrdered By: Carlitos Nguyen on 04-25-2023 CO2 [Moles/Vol] 25.9 mmol/L 21.0-31.[address] [facility] Chloride [Moles/volume] in S colin or PlasmaOrdered By: Carlitos Nguyen on 04-25-2023 Chloride [Moles/Vol] 105 mmol/L 98-107 [facility] Cholesterol [Mass/volume] in Serum or PlasmaOrdered By: Carlitos Nguyen on 04-25-2023 Cholesterol [Mass/Vol] 208 mg/dL 140-200 [facility] Comment on above: Chol less than 200 m g/dl low riskChol 201-239 mg/dl borderline riskChol 240 mg/dl and greater high risk Cholesterol in LDL Calc [Mas s/Vol]Ordered By: Carlitos Nguyen on 04-25-2023 Cholesterol in LDL [Mass/Vol] 136 mg/dL 0-100 [facility] Comment on above: LDL ATP III CLASSIFI CATIONLDL less than 100 mg/dL OptimalLDL 100-129 mg/dL Near or above optimalLDL 130-159 mg/dL Borderline highLDL 160-189 mg/dL HighLDL greater than 189 mg/dL Very high Cholesterol in VLDL Calc [Ma ss/Vol]Ordered By: Carlitos Nguyen on 04-25-2023 Cholesterol in VLDL [Mass/Vol] 16 mg/dL [facility] Creatinine [Mass/volume] in Serum or PlasmaOrdered By: Carlitos Nguyen on 04-25-2023 Creatinine [Mass/Vol] 0.81 mg/dL 0.60-1.20 [facility] Globulin Calc (S) [Mass/Vol] Ordered By: Carlitos Nguyen on 04-25-2023 Globulin (S) [Mass/Vol] 2.6 g/dL [facility] Glucose [Mass/volume] in Ser um or PlasmaOrdered By: Carlitos Nguyen on 04-25-2023 Glucose [Mass/Vol] 84 mg/dL 70-100 [facility] No Panel InformationOrdered By: Carlitos Nguyen on 04-25-2023 Estimated GFR (CKD-EPI) > 60.0 mL/Min [facility] Creatinine Clearance (Chem N/A [facility] Potassium [Moles/volume] in Serum or PlasmaOrdered By: Carlitos Nguyen on 04-25-2023 Potassium [Moles/Vol] 4.3 mmol/L 3.5-5.1 [facility] Comment on above: Hemolysis is present at a level that could interfere with the result. Protein [Mass/volume] in Ser um or PlasmaOrdered By: Carlitos Nguyen on 04-25-2023 Protein [Mass/Vol] 7.4 g/dL 6.4-8.9 [facility] Serum or plasma albumin/glob ulin mass ratioOrdered By: Carlitos Nguyen on 04-25-2023 Albumin/Globulin [Mass ratio] 1.8 {ratio} [facility] Serum or plasma anion gap de terminationOrdered By: Carlitos Nguyen on 04-25-2023 Anion gap [Moles/Vol] 12.4 mmol/L 6.0-15.0 [facility] Serum or plasma high density lipoprotein (HDL) cholesterol measurementOrdered By: Carlitos Nguyen on 04-25-2023 Cholesterol in HDL [Mass/Vol] 55 mg/dL 23-92 [facility] Comment on above: HDL CHOL ATP-III CLA SSIFICATION Cardiovascular RiskHDL > or equal to 60 mg/dL LOWHDL < 40 mg/dL HIGH Serum or plasma total choles terol/high density lipoprotein (HDL) cholesterol mass ratOrdered By: Cariltos Nguyen on 04-25-2023 Cholesterol.total/Chol esterol in HDL [Mass ratio] 3.8 {ratio} <5.0 [facility] Sodium [Moles/volume] in Ser um or PlasmaOrdered By: Carlitos Nguyen on 04-25-2023 Sodium [Moles/Vol] 139 mmol/L 136-145 [facility] Triglyceride [Mass/volume] i n Serum or PlasmaOrdered By: Carlitos Nguyen on 04-25-2023 Triglyceride [Mass/Vol] 83 mg/dL 0-149 [facility] Comment on above: TRIG ATP III CLASSIF ICATIONTRIG less than 150 mg/dL NormalTRIG 150-199 mg/dL Borderline highTRIG 200-500 mg/dL High TRIG greater than 500 mg/dL Very highStandard traceable to the Center for Disease Conrtrol and Prevention (CDC) test method. Urea nitrogen [Mass/volume] in Serum or PlasmaOrdered By: Carlitos Nguyen on 04-25-2023 Urea nitrogen [Mass/Vol] 15 mg/dL 7-25 [facility] Tobacco Screening.on 023 Adult depression screening assessment No [facility] 320 DO Work Phone: Fall risk assessment a) No falls within the last year [facility] [address] DO Work Phone: Tobacco use status CP b) No [facility] [address] DO Work Phone: Office Visit (Cardiology)on [...] in adult Healthy Weight Tips; Status:Complete; Done: [id number] SocHx: Never a smoker Tobacco Use Screening; Status:Complete; Done: [id number] Patient Instructions Please bring all medicines, vitamins, [...] she did get a second opinion in [place], and no change in medication was suggested [...] sinus sometime (more content not included)... Normal [employer] Tobacco Screening.on 022 Tobacco use status CPHS b) No [facility] [facility] 250 DO Work Phone: Cardiovasc Arrhythmia Result son 07-31-2022 Cardiovasc Arrhythmia Results Reason For Visit MADYSON is here for the application of a [employer] monitor. Ordering Physician: Dr. Maza Diagnosis: abn TTT, dyspnea, syncope, autonomic orthostatic hypotension [facility] equipment agreement signed. MADYSON understands monitor is to be returned on: 08/14/22 Monitor number [id number] applied. Procedure Date I received for dictation [...] Appointments Date/TimeProviderSpecialt ySite 09/11/2022 09:30 Melodie Sylvester, [id number] Carlos 250 DO 10/13/2022 09:20 Annalee Russell, [id number] [place] 320 DO Signatures [...] a smoker Tobacco Use Screening; Status:Complete; Done: [id number] Patient Instructions Drink plenty of water daily, [...] Dr. Chan Jiang in 1 week. ITammy, LATEX DIPPER, am scribing for and in the presence [...] heart murmur and has been transferred to [facility] There is no family history [...] cardiac data (more content not included)... Normal [facility] Tobacco Screening.on 022 Fall risk assessment b) One or more fall s in the last year [facility] H.BLOOM DO Work Phone: Tobacco use status [facility] b) No [facility] H.BLOOM DO Work Phone: Office Visit (Cardiology)on 07-10-2022 [...] Confirmed - N/A AMA Intake updated by [facility] (INTRAN[facility]) on 2022-07-11 22:02 New Recipient: Annalee Maza New Appointment Date: 2022-07-21 07:20 Autonomic orthostatic hypotension, Syncope, unspecified syncope type Changed: From To Midodrine HCl - 10 MG Oral Tablet TAKE 1 TABLET 3 TIMES DAILY Class 1 obesity with body mass index (BMI) of 31.0 to 31.9 in adult Avoid getting up or changing positions quickly.; Status:Complete; Done: [id number] Healthy Weight Tips; Status:Complete; Done: [id number] Some eating tips that can help you lose weight.; Status:Complete; Done: [id number] Dyspnea (786.09) (R06.00) Class 1 obesity with [...] from 6 (more content not included)... Normal [employer] Tobacco Screening.on 022 Tobacco use status HS b) No -[facility] 250 DO Work Phone: COVID CepheidOrdered By: Daniele Pearce on 06-01-2022 SARS-CoV-2 (COVID-19) Ab IA Ql Negative Negative [facility] Comment on above: This is a duplicate [employer] Xpert Xpress CoV-2/Flu/RSV Plus RNA by RT-PCR result to be used for statistical tracking purpose only. SARS-CoV-2 (COVID-19) RNA PERFECTO+probe Ql (Unsp spec) [facility] Office Visit (Cardiology)on 05-18-2022 [...] in adult Healthy Weight Tips; Status:Complete; Done: [id number] Some eating tips that can help you lose weight.; Status:Complete; Done: 51Qav8956 Dyspnea, Syncope, unspecified syncope type Urine Test; Status:Active - Retrospective By Protocol Authorization; Requested for:[id number]; Palpitation Start: Atenolol 25 MG Oral Tablet; TAKE 1 TABLET DAILY Syncope, unspecified syncope type Tilt Table; Status:Hold For - Scheduling,Retrospective By Protocol Authorization; Requested for:[id number]; Patient Instructions Please bring all medicines, vitamins, [...] walking to the bathroom. She will see sports nutritionist in the near future, she had her pulmonary function test which I reviewed, there is concern for chronic asthma, but no reactive airway disease. She has 3 dogs that she had, and 1 cat at home. She is not orthostatic. She is feeling palpitations quite a bit. Results of the pulmonary function test and a [place]ah of [place] was reviewed. Also reviewed stress test and [...] 3.5 c (more content not included)... Normal [facility] Tobacco Screening.on 022 Tobacco use status CPHS b) No -[facility] 250 DO Work Phone: No Panel Informationon 05-03 [facility] 250 DO Work Phone: -[facility] 250 DO Work Phone: Cardiovasc Arrhythmia Result son 03-28-2022 Cardiovasc Arrhythmia Results Reason For Visit Event Monitor: MADYSON is here for the application of a 30 day event monitor in office., Diagnosis: Palps, Dyspnea, Chest pain Ordering Physician: Enrollment sent to: [employer] Monitor number [id number] applied. Holter monitor printed and placed on [...] (R06.00) Palpitation (785.1) (R00.2) Future Appointments Date/TimeProviderSpecialt [facility] 05/03/2022 10:00 María Elena Cesar MDCardiologySurgery [facility] 05/18/2022 09:15 [facility] [place] [address] DO Signatures Electronically signed by : Melodie Alcaraz MD; May 01 2022 7:56PM EST (Author) [facility] and C hemistry - challengeOrdered By: Melodie Alcaraz on 03-24-2022 Natriuretic peptide B (Bld) [Mass/Vol] 27.0 pg/mL 5-100 [facility] No Panel InformationOrdered By: Melodie Alcaraz on 03-24-2022 D-Dimer Quantitative (PE/DVT) < 200 ng/mL 0-243 [facility] Comment on above: The [...] No Panel Informationon 03-24 0.70\S\0.70 Normal 0.45-5.33 [facility] Vidient 250 DO Work Phone: Comment on above: PERFORMED BY:[facility] GREGORIOVenitaJesikaJOSEVERONA [place]ACH, [place] [phone] MEDICAL DIRECTOROFE ELLIS M.D. 0.99\S\0.99 Normal 0.61-1.12 [facility] 250 [facility] Work Phone: 27.0\S\27.0 Normal 5-100 [facility] Zin.gl DO Work Phone: Comment on above: PERFORMED BY:[facility] GREGORIOPRESTONVERONA BEACH, [place] [phone] MEDICAL DIRECTOROFE ELLIS M.D. < 200 Normal 0-243 [facility] [address] [facility] Center[facility] 250 DO Work Phone: Comment on above: [...] in hospitalized patients due to co-morbid conditions.PERFORMED BY:[facility] INGRAMJOSEVERONA [place]ACH, [place] [phone] MEDICAL DIRECTOROFE ELLIS M.D. TSH DL <= 0.005 mIU/L QnOrde red By: Melodie Alcaraz on 03-24-2022 TSH Qn 0.70 m[IU]/L 0.45-5.33 [facility] Thyroxine (T4) free [Mass/vo lume] in Serum or PlasmaOrdered By: Melodie Alcaraz on 03-24-2022 Free T4 [Mass/Vol] 0.99 ng/dL 0.61-1.12 [facility] Office Visit (Cardiology)on 03-23-2022 Follow-up visit Diagnoses/Problems [...] twin brother had to be taken to [facility], and has history of heart murmur. [...] frequently pic (more content not included)... Normal [facility] PHQ-2 [facility] 03-23-2022 Adult depression screening assessment No [facility] 250 DO Work Phone: Fall risk assessment c) Not medically indicated [facility] HeartDecision Sciencesusk y 250 DO Work Phone: Tobacco use status CPHS b) No [facility] 250 DO Work Phone: ARMANI BY IFA WITH REFLEXon Nuclear Ab IF (S) [Titer] Negative Negative [facility] CCP ANTIBODY IGGon 2 Cyclic citrullinated peptide IgG Qn <15 <20 Units [facility] Cyclic citrullinated peptide IgG Qnon 01-26-2022 CCP Antibody IgG Qualitative Negative Negative [facility] Nuclear Ab IA Ql (S)on 01-26 ARMANI by EIA, Qual Negative Negative [facility] ARMANI BY IFA WITH REFLEXon Nuclear Ab IF (S) [Titer] Negative Normal Negative [facility] Comment on above: Order Comment: Jose Carlos oseguera Type: BLOOD SPECIMEN Ordering Facility: [facility] Address: [address] [place] [address] Result Comment: Anti -nuclear antibody test is used as an aid in diagnosis of systemic autoimmune diseases. Where positive and clinically warranted, follow-up using disease-specific testing is recommended. Low positive titers are not uncommon with advanced age, certain chronic infections, and malignancies among others. Test methodology: Indirect fluorescence immunoassay (IFA) using HEp-2 cells. Performed By: #### A NAIFR #### [facility] CLIA [id number] [address] [place] [address] [place] C-REACTIVE PROTEIN (CRP)on 0 01-25-2022 CRP [Mass/Vol] 0.4 mg/dL <0.9 mg/dL [facility] C1 ESTERASE INHIBITon 2021 C1 ESTERASE INHIBIT 26 mg/dL Normal 21-38 [facility] Comment on above: Order Comment: Jose Carlos oseguera Type: BLOOD SPECIMEN Ordering Facility: [facility] Address: [address] [place] [address] Result Comment: Perf ormed By: [facility] [address] [place] [address] Tankroom Tender: Brittni Moscoso MD Performed By: #### 1 6570-4, 32430-8, 76211-7, 02508-7, 32365-1, 56348-2, 40416-9, 67527-2 #### [facility] CLIA [id number] [address] [place] [address] [place] C2 COMPLEMENT BLDon 01-26-20 22 C2 COMPLEMENT 2.4 mg/dL Normal 1.6-4.0 [facility] Comment on above: Order Comment: Jose Carlos oseguera Type: BLOOD SPECIMEN Ordering Facility: [facility] Address: [address] [place] [address] Result Comment: INTE RPRETIVE INFORMATION: Complement Component 2 Decreased C2 levels may be associated with increased susceptibility to infection (especially pneumococcal infections), systemic lupus erythematosus-like disease, rashes, arthritis and nephritis, and with C1-Esterase deficiency. Increased C2 levels are associated with the acute phase response. This test was developed and its performance characteristics determined by [facility]. It has not been cleared or approved by the [place] Food and Drug Administration. This test was performed in a CLIA certified laboratory and is intended for clinical purposes. Performed By: [facility] [address] [place] [address] Tankroom Tender: Brittni Moscoso MD Performed By: #### 1 6570-4, 16279-2, 51897-2, 18652-8, 88970-5, 73752-1, 85261-8, 79561-2 #### [facility] CLIA [id number] [address] [place] [address] [place] C3 COMPLEMENT BLDon 01-26-20 22 Complement C3 [Mass/Vol] 130 mg/dL 86 - 166 mg/dL [facility] C3 SerPl-mCncon 01-25-2022 Complement C3 [Mass/Vol] 130 mg/dL Normal 86-166 [facility] Comment on above: Order Comment: Speci ana rosa Type: BLOOD SPECIMEN Ordering Facility: [facility] Address: [address] [place] [address] Performed By: #### 1 6570-4, 57275-4, 36982-9, 05587-3, 30830-2, 42691-1, 06948-8, 24083-1 #### [facility] CLIA [id number] [address] [place] [address] [place] C4 COMPLEMENT BLDon 01-26-20 22 Complement C4 [Mass/Vol] 30 mg/dL 13 - 46 mg/dL [facility] C4 SerPl-mCncon 01-25-2022 Complement C4 [Mass/Vol] 30 mg/dL Normal 13-46 [facility] Comment on above: Order Comment: Speci ana rosa Type: BLOOD SPECIMEN Ordering Facility: [facility] Address: [address] [place] [address] Performed By: #### 1 6570-4, 17421-0, 14919-6, 64677-3, 64055-0, 77480-4, 74610-2, 00865-6 #### [facility] CLIA [id number] [address] [place] [address] [place] CBC panel Auto (Bld)on 01-25 Erythrocyte distribution width (RBC) [Ratio] 12.1 % Normal 11.5-15.0 [facility] Comment on above: Order Comment: Speci men Type: BLOOD SPECIMEN Ordering Facility: [facility] Address: [address] [place] [address] Performed By: #### 1 6570-4, 91663-7, 29503-2, 33848-6, 27599-1, 01218-5, 48320-7, 75187-9 #### [facility] CLIA [id number] [address] [place] [address] [place] Hematocrit (Bld) [Volume fraction] 42.6 % Normal 36.0-46.0 [facility] Comment on above: Order Comment: Speci men Type: BLOOD SPECIMEN Ordering Facility: [facility] Address: [address] [place] [address] Performed By: #### 1 6570-4, 33365-9, 41118-6, 98352-8, 69542-5, 94547-9, 53707-8, 04632-6 #### [facility] CLIA [id number] [address] [place] [address] [place] Hemoglobin (Bld) [Mass/Vol] 13.8 g/dL Normal 11.5-15.5 [facility] Comment on above: Order Comment: Speci men Type: BLOOD SPECIMEN Ordering Facility: [facility] Address: [address] [place] [address] Performed By: #### 1 6570-4, 57562-9, 15409-8, 33467-2, 35836-6, 79769-6, 37405-1, 37820-5 #### [facility] CLIA [id number] [address] [place] [address] MCH (RBC) [Entitic mass] 28.3 pg Normal 26.0-34.0 [facility] Comment on above: Order Comment: Speci men Type: BLOOD SPECIMEN Ordering Facility: [facility] Address: [address] [place] [address] Performed By: #### 1 6570-4, 72158-6, 39290-7, 43362-2, 40721-9, 00442-5, 39572-2, 58134-3 #### [facility] CLIA [id number] [address] [place] [address] [place] MCHC (RBC) [Mass/Vol] 32.4 g/dL Normal 30.5-36.0 [facility] Comment on above: Order Comment: Speci men Type: BLOOD SPECIMEN Ordering Facility: [facility] Address: [address] [place] [address] Performed By: #### 1 6570-4, 47363-7, 59831-5, 53765-0, 99605-8, 51222-5, 47370-0, 76436-8 #### [facility] CLIA [id number] [address] [place] [address] [place] MCV (RBC) [Entitic vol] 87.3 fL Normal 80.0-100.0 [facility] Comment on above: Order Comment: Speci men Type: BLOOD SPECIMEN Ordering Facility: [facility] Address: [address] [place] [address] Performed By: #### 1 6570-4, 75566-8, 37427-5, 07975-0, 20230-1, 84696-9, 21664-4, 24115-9 #### [facility] CLIA [id number] [address] [place] [address] [place] Nucleated RBC (Bld) [#/Vol] 10*3/uL Normal <0.01 [facility] Comment on above: Order Comment: Speci men Type: BLOOD SPECIMEN Ordering Facility: [facility] Address: [address] [place], [place] [address] Performed By: #### 1 6570-4, 14225-6, 09783-1, 99281-5, 59914-7, 91360-6, 73307-9, 06231-5 #### [facility] CLIA [id number] [address] [place] [address] [place] Platelet mean volume (Bld) [Entitic vol] 10.3 fL Normal 9.0-12.7 [facility] Comment on above: Order Comment: Speci men Type: BLOOD SPECIMEN Ordering Facility: [facility] Address: [address] [place] [address] Performed By: #### 1 6570-4, 69428-8, 31116-6, 81457-2, 82508-1, 95137-8, 46060-8, 46453-8 #### [facility] CLIA [id number] [address] [place] [address] [place] Platelets (Bld) [#/Vol] 213 10*3/uL Normal 150-400 [facility] Comment on above: Order Comment: Speci men Type: BLOOD SPECIMEN Ordering Facility: [facility] Address: [address] [place] [address] Performed By: #### 1 6570-4, 24449-0, 08074-9, 41121-0, 26418-6, 30078-9, 27679-5, 72772-9 #### [facility] CLIA [id number] [address] [place] [address] [place] RBC (Bld) [#/Vol] 4.88 10*6/uL Normal 3.90-5.20 [facility] Comment on above: Order Comment: Speci men Type: BLOOD SPECIMEN Ordering Facility: [facility] Address: [address] [place], [place] [address] Performed By: #### 1 6570-4, 61238-3, 45258-4, 74527-6, 14250-8, 18800-8, 67315-6, 06466-9 #### [facility] CLIA [id number] [address] [place] [address] [place] [facility] WBC (Bld) [#/Vol] 4.77 10*3/uL Normal 3.70-11.00 [facility] Comment on above: Order Comment: Speci men Type: BLOOD SPECIMEN Ordering Facility: [facility] Address: [address] [place] [address] Performed By: #### 1 6570-4, 02875-3, 96226-3, 35942-0, 89195-9, 61128-3, 18152-0, 44874-4 #### [facility] CLIA [id number] [address] [place] [address] [place] Erythrocyte distribution width (RBC) [Ratio] 12.1 % 11.5 - 15.0 % [facility] Hematocrit (Bld) [Volume fraction] 42.6 % 36.0 - 46.0 % [facility] Hemoglobin (Bld) [Mass/Vol] 13.8 g/dL 11.5 - 15.5 g/dL [facility] MCH (RBC) [Entitic mass] 28.3 pg 26.0 - 34.0 pg [facility] MCHC (RBC) [Mass/Vol] 32.4 g/dL 30.5 - 36.0 g/dL [facility] MCV (RBC) [Entitic vol] 87.3 fL 80.0 - 100.0 fL [facility] Nucleated RBC (Bld) [#/Vol] 10*3/uL <0.01 k/uL [facility] Platelet mean volume (Bld) [Entitic vol] 10.3 fL 9.0 - 12.7 fL [facility] Platelets (Bld) [#/Vol] 213 10*3/uL 150 - 400 k/uL [facility] RBC (Bld) [#/Vol] 4.88 10*6/uL 3.90 - 5.20 m/uL [facility] WBC (Bld) [#/Vol] 4.77 10*3/uL 3.70 - 11.00 k/uL [facility] CRP SerPl-mCncon 01-25-2022 CRP [Mass/Vol] 0.4 mg/dL Normal <0.9 [facility] Comment on above: Order Comment: Speci ana rosa Type: BLOOD SPECIMEN Ordering Facility: [facility] Address: [address] [place] [address] Performed By: #### 1 6570-4, 25613-0, 67447-6, 15047-7, 47191-1, 66453-5, 34659-0, 22091-4 #### [facility] CLIA [id number] [address] [place] [address] [place] Centromere Ab IF Ql (S)on Centromere Ab Qn (S) <0.2 Normal <1.0 [facility] Comment on above: Order Comment: Horacioi ana rosa Type: BLOOD SPECIMEN Ordering Facility: [facility] Address: [address] [place] [address] Result Comment: Anti -centromere antibody is used as in aid in diagnosis of systemic sclerosis. Clinical correlation is required. Test Methodology: Multiplex flow immunoassay. Performed By: #### 1 6570-4, 46005-0, 29590-9, 78784-5, 33264-6, 74721-2, 29426-6, 74005-2 #### [facility] CLIA [id number] [address] [place] [address] [place] CENTROMERE AB QUAL Negative Normal Negative [facility] Comment on above: Order Comment: Speci men Type: BLOOD SPECIMEN Ordering Facility: [facility] Address: [address] [place], [place] [address] Performed By: #### 1 6570-4, 59569-9, 64147-3, 03400-5, 56621-9, 82233-6, 68863-5, 35675-8 #### [facility] CLIA [id number] [address] [place] [address] [place] Chromatin Ab Qnon 01-25-2022 CHROMATIN AB QUAL Negative Normal Negative [facility] Comment on above: Order Comment: Speci men Type: BLOOD SPECIMEN Ordering Facility: [facility] Address: [address] [place] [address] Performed By: #### 1 6570-4, 80218-6, 38916-4, 82031-0, 38212-8, 51143-0, 16529-0, 90154-2 #### [facility] CLIA [id number] [address] [place] [address] [place] Chromatin Ab SerPl-aCncon Chromatin Ab Qn <0.2 Normal <1.0 [facility] Comment on above: Order Comment: Speci men Type: BLOOD SPECIMEN Ordering Facility: [facility] Address: [address] [place] [address] Result Comment: Test Methodology: Multiplex flow immunoassay. Performed By: #### 1 6570-4, 77835-0, 38564-1, 03264-5, 91580-1, 25723-7, 71771-2, 60976-6 #### [facility] CLIA [id number] [address] [place] [address] [place] Comprehensive metabolic 2000 panelon 01-25-2022 Albumin [Mass/Vol] 4.5 g/dL 3.9 - 4.9 g/dL [facility] ALP [Catalytic activity/Vol] 65 U/L 34 - 123 U/L [facility] ALT [Catalytic activity/Vol] 14 U/L 7 - 38 U/L [facility] Anion gap [Moles/Vol] 11 mmol/L 9 - 18 mmol/L [facility] AST [Catalytic activity/Vol] 14 U/L 13 - 35 U/L [facility] Bilirubin [Mass/Vol] 0.3 mg/dL 0.2 - 1 .3 mg/dL [facility] Calcium [Mass/Vol] 9.5 mg/dL 8.5 - 10. 2 mg/dL [facility] Chloride [Moles/Vol] 105 mmol/L 97 - 10 5 mmol/L [facility] CO2 [Moles/Vol] 26 mmol/L 22 - 30 mmol/L [facility] Creatinine [Mass/Vol] 0.71 mg/dL 0.58 - 0.96 mg/dL [facility] Estimated Glomerular Filtration Rate 125 mL/min/1.73m >=60 mL/min/1.7 3m [facility] Glucose [Mass/Vol] 94 mg/dL 74 - 99 mg/dL [facility] Potassium [Moles/Vol] 4.6 mmol/L 3.7 - 5.1 mmol/L [facility] Protein [Mass/Vol] 7.2 g/dL 6.3 - 8.0 g/dL [facility] Sodium [Moles/Vol] 142 mmol/L 136 - 144 mmol/L [facility] Urea nitrogen [Mass/Vol] 8 mg/dL 7 - 21 mg/dL [facility] Albumin [Mass/Vol] 4.5 g/dL Normal 3.9-4.9 [facility] Comment on above: Order Comment: Speci men Type: BLOOD SPECIMEN Ordering Facility: [facility] Address: [address] [place] [address] Performed By: #### 1 6570-4, 58509-9, 62459-6, 82062-8, 08688-2, 80865-9, 77014-9, 21489-3 #### [facility] CLIA [id number] [address] [place] [address] [place] ALP [Catalytic activity/Vol] 65 U/L Normal 34-123 [facility] Comment on above: Order Comment: Speci men Type: BLOOD SPECIMEN Ordering Facility: [facility] Address: [address] [place] [address] Performed By: #### 1 6570-4, 12449-3, 04015-5, 34203-4, 77274-1, 94629-0, 16627-8, 89385-9 #### [facility] CLIA [id number] [address] [place] [address] [place] ALT [Catalytic activity/Vol] 14 U/L Normal 7-38 [facility] Comment on above: Order Comment: Speci men Type: BLOOD SPECIMEN Ordering Facility: [facility] Address: [address] [place] [address] Performed By: #### 1 6570-4, 67255-9, 19963-9, 22276-8, 25130-2, 48313-0, 70598-7, 24980-5 #### [facility] CLIA [id number] [address] [place] [address] [place] Anion gap [Moles/Vol] 11 mmol/L Normal 9-18 [facility] Comment on above: Order Comment: Speci men Type: BLOOD SPECIMEN Ordering Facility: [facility] Address: [address] [place] [address] Performed By: #### 1 6570-4, 44791-9, 15750-4, 96084-9, 28082-7, 28412-3, 12130-1, 13271-4 #### [facility] CLIA [id number] [address] [place] [address] [place] AST [Catalytic activity/Vol] 14 U/L Normal 13-35 [facility] Comment on above: Order Comment: Speci men Type: BLOOD SPECIMEN Ordering Facility: [facility] Address: [address] [place] [address] Performed By: #### 1 6570-4, 64378-1, 23442-5, 04013-9, 46200-6, 27113-9, 16530-3, 13320-4 #### [facility] CLIA [id number] [address] [place] [address] [place] Bilirubin [Mass/Vol] 0.3 mg/dL Normal 0.2-1.3 [facility] Comment on above: Order Comment: Speci men Type: BLOOD SPECIMEN Ordering Facility: [facility] Address: [address] [place] [address] Performed By: #### 1 6570-4, 48774-3, 18978-8, 05256-8, 12033-6, 29427-7, 29708-5, 55224-6 #### [facility] CLIA [id number] [address] [place] [address] [place] Calcium [Mass/Vol] 9.5 mg/dL Normal 8.5-10.2 [facility] Comment on above: Order Comment: Speci men Type: BLOOD SPECIMEN Ordering Facility: [facility] Address: [address] [place] [address] Performed By: #### 1 6570-4, 36282-4, 25987-1, 17629-4, 24046-2, 06081-0, 48668-4, 92465-0 #### [facility] CLIA [id number] [address] [place] [address] [place] Chloride [Moles/Vol] 105 mmol/L Normal 97-105 [facility] Comment on above: Order Comment: Speci men Type: BLOOD SPECIMEN Ordering Facility: [facility] Address: [address] [place] [address] Performed By: #### 1 6570-4, 22283-8, 65982-5, 07699-3, 09128-0, 45155-8, 98128-8, 01832-3 #### [facility] CLIA [id number] [address] [place] [address] [place] CO2 [Moles/Vol] 26 mmol/L Normal 22-30 [facility] Comment on above: Order Comment: Speci men Type: BLOOD SPECIMEN Ordering Facility: [facility] Address: [address] [place] [address] Performed By: #### 1 6570-4, 89230-7, 14244-6, 53962-1, 96880-1, 70976-5, 85887-6, 90449-5 #### [facility] CLIA [id number] [address] [place] [address] [place] Creatinine [Mass/Vol] 0.71 mg/dL Normal 0.58-0.96 [facility] Comment on above: Order Comment: Jose Carlos oseguera Type: BLOOD SPECIMEN Ordering Facility: [facility] Address: [address] [facility] [place] [address] Performed By: #### 1 6570-4, 57071-8, 44248-6, 50048-3, 29550-4, 66589-8, 85058-0, 78921-0 #### [facility] CLIA [id number] [address] [place] [address] [place] ESTIMATED GLOMERULAR FILTRATION RATE 125 mL/min/1.73m??? Normal >=60 [facility] Comment on above: Order Comment: Jose Carlos oseguera Type: BLOOD SPECIMEN Ordering Facility: [facility] Address: [facility] [place] [id number] Result Comment: Francesca mated Glomerular Filtration Rate [...] actual GFR. Performed By: #### 1 6570-4, 37907-5, 39134-3, 58202-3, 89028-9, 82561-2, 54633-8, 20277-3 #### [facility] CLIA [id number] [address] [place] [address] [place] Glucose [Mass/Vol] 94 mg/dL Normal 74-99 [facility] Comment on above: Order Comment: Jose Carlos oseguera Type: BLOOD SPECIMEN Ordering Facility: [facility] Address: [address] [place] [id number] Result Comment: The [place] Diabetes Association (ADA) provides guidance for cutoff [...] Standards of Medical Care in Diabetes 2016, [place] [employer]. Diabetes Care. 2016.39(Suppl 1). Performed By: #### 1 6570-4, 73718-8, 51419-6, 17720-6, 58347-4, 48033-1, 70814-2, 75888-9 #### [facility] CLIA [id number] [address] [place] [address] [place] Potassium [Moles/Vol] 4.6 mmol/L Normal 3.7-5.1 [facility] Comment on above: Order Comment: Horacioi ana rosa Type: BLOOD SPECIMEN Ordering Facility: [facility] Address: [address] [place] [address] Performed By: #### 1 6570-4, 64451-6, 70541-6, 31870-1, 60843-1, 93020-5, 63000-3, 60991-3 #### [facility] CLIA [id number] [address] [place] [address] [place] Protein [Mass/Vol] 7.2 g/dL Normal 6.3-8.0 [facility] Comment on above: Order Comment: Horacioi ana rosa Type: BLOOD SPECIMEN Ordering Facility: [facility] Address: [address] [place] [address] Performed By: #### 1 6570-4, 93587-9, 16046-7, 42394-9, 29472-2, 03039-8, 57664-7, 62878-7 #### [facility] CLIA [id number] [address] [place] [address] [place] Sodium [Moles/Vol] 142 mmol/L Normal 136-144 [facility] Comment on above: Order Comment: Horacioi men Type: BLOOD SPECIMEN Ordering Facility: [facility] Address: [address] [place] [address] Performed By: #### 1 6570-4, 96220-9, 23071-4, 73825-7, 63460-6, 73880-5, 10169-0, 40259-3 #### [facility] CLIA [id number] [address] [place] [address] [place] Urea nitrogen [Mass/Vol] 8 mg/dL Normal 7-21 [facility] Comment on above: Order Comment: Speci men Type: BLOOD SPECIMEN Ordering Facility: [facility] Address: [address] [place] [address] Performed By: #### 1 6570-4, 83079-5, 85572-2, 79392-7, 67551-2, 63246-7, 86456-9, 28500-9 #### [facility] CLIA [id number] [address] [place] [address] [place] Cyclic citrullinated peptide IgG Qnon 01-25-2022 CCP ANTIBODY IGG QUALITATIVE Negative Normal Negative [facility] Comment on above: Order Comment: Speci men Type: BLOOD SPECIMEN Ordering Facility: [facility] Address: [address] [place] [address] Performed By: #### 1 6570-4, 95853-5, 70034-2, 77289-3, 13358-9, 76892-4, 87386-8, 96481-0 #### [facility] CLIA [id number] [address] [place] [address] [place] JASON Jo1 Ab Ser-aCncon 2021 Yuly-1 extractable nuclear Ab Qn (S) <0.2 Normal <1.0 [facility] Comment on above: Order Comment: Speci men Type: BLOOD SPECIMEN Ordering Facility: [facility] Address: [address] [place] [address] Performed By: #### 1 6570-4, 98952-9, 73612-6, 73806-1, 88316-9, 72435-8, 92924-9, 52282-7 #### [facility] CLIA [id number] [address] [place] [address] [place] FINANCIAL ACCOUNTING ANALYST Ab Ser-aCncon 2021 Ribonucleoprotein extractable nuclear Ab Qn (S) <0.2 Normal <1.0 [facility] Comment on above: Order Comment: Speci men Type: BLOOD SPECIMEN Ordering Facility: [facility] Address: [address] [place] [address] Performed By: #### 1 6570-4, 91074-2, 85498-7, 12112-4, 76569-9, 78337-3, 19454-6, 61009-4 #### [facility] CLIA [id number] [address] [place] [address] [place] SM IgG Ser-aCncon 2021 Cota extractable nuclear IgG Qn (S) <0.2 Normal <1.0 [facility] Comment on above: Order Comment: Speci men Type: BLOOD SPECIMEN Ordering Facility: [facility] Address: [address] [place] [address] Performed By: #### 1 6570-4, 06950-4, 25725-3, 28929-5, 49214-9, 31032-4, 37941-8, 61030-8 #### [facility] CLIA [id number] [address] [place] [address] [place] SS-A Ab Ser-aCncon 01-25 Sjogrens syndrome-A extractable nuclear Ab Qn (S) <0.2 Normal <1.0 [facility] Comment on above: Order Comment: Speci men Type: BLOOD SPECIMEN Ordering Facility: [facility] Address: [address] [place] [address] Result Comment: Test Methodology: Multiplex flow immunoassay. Performed By: #### 1 6570-4, 81300-5, 95620-4, 88835-9, 52102-4, 25591-3, 86020-0, 86177-5 #### [facility] CLIA [id number] [address] [place] [address] [place] JASON SS-B Ab Ser-aCncon 01-25 Sjogrens syndrome-B extractable nuclear Ab Qn (S) <0.2 Normal <1.0 [facility] Comment on above: Order Comment: Speci men Type: BLOOD SPECIMEN Ordering Facility: [facility] Address: [address] [place] [address] Result Comment: Anti -SSB (anti-La) antibody is used as an aid in diagnosis of a variety of systemic autoimmune diseases, especially for Sjogren's syndrome and systemic lupus erythematosus. Clinical correlation is required. Test Methodology: Multiplex flow immunoassay. Performed By: #### 1 6570-4, 08479-0, 97693-6, 35541-4, 32293-3, 13058-3, 69439-2, 39111-3 #### [facility] CLIA [id number] [address] [place] [address] [place] ESR Westergren method (Bld) [Velocity]on 01-25-2022 ESR (Bld) [Velocity] 2 mm/h 0 - 20 mm/hr [facility] ESR (Bld) [Velocity] 2 mm/h Normal 0-20 [facility] Comment on above: Order Comment: Speci men Type: BLOOD SPECIMEN Ordering Facility: [facility] Address: [address] [place] [address] Performed By: #### 1 6570-4, 63153-7, 46381-8, 77361-5, 66689-0, 54705-1, 86688-0, 59717-9 #### [facility] CLIA [id number] [address] [place] [address] [place] HBV core Ab Ser Qlon 022 HBV core Ab Ql (S) Negative Normal Negative [facility] Comment on above: Order Comment: Speci men Type: BLOOD SPECIMEN Ordering Facility: [facility] Address: [address] [place], [place] [id number] Result Comment: No e vidence of current or past infection with Hepatitis B virus. Should recent infection be suspected, repeat testing may be considered 3-4 weeks after this draw. Performed By: #### 1 6570-4, 96441-8, 17241-1, 70411-2, 79236-7, 81675-0, 86229-3, 26357-3 #### [facility] CLIA [id number] [address] [place] [address] [place] HBV surface Ab IA Ql (S)on 0 01-25-2022 HBV surface Ag Ql (S) Negative Normal Negative [facility] Comment on above: Order Comment: Speci men Type: BLOOD SPECIMEN Ordering Facility: [facility] Address: [address] [place] [address] Performed By: #### 1 6570-4, 10090-4, 83461-6, 00651-4, 11082-8, 44495-0, 22708-2, 62629-3 #### [facility] CLIA [id number] [address] [place] [address] [place] HBV surface Ab Ser Qlon HBV surface Ab Ql (S) Negative Normal Negative [facility] Comment on above: Order Comment: Speci men Type: BLOOD SPECIMEN Ordering Facility: [facility] Address: [address] [place] [address] Result Comment: No e vidence of current or past infection with Hepatitis B virus. Should recent infection be suspected, repeat testing may be considered 3-4 weeks after this draw. Performed By: #### 1 6570-4, 99564-6, 55384-2, 25209-3, 30106-9, 95584-6, 32233-6, 96166-8 #### [facility] CLIA [id number] [address] [place] [address] [place] HCV Ab Ser Qlon 01-25-2022 HCV Ab Ql (S) Negative Normal Negative [facility] Comment on above: Order Comment: Jose Carlos oseguera Type: BLOOD SPECIMEN Ordering Facility: [facility] Address: [address] [place] [address] Result Comment: The result suggests no evidence of active infection with Hepatitis C virus. Should recent infection be suspected, repeat testing may be considered 4-6 weeks after this draw. Performed By: #### 1 6570-4, 43133-2, 81563-0, 84231-0, 31154-0, 62757-9, 32435-7, 12130-8 #### [facility] CLIA [id number] [address] [place] [address] [place] Yuly-1 extractable nuclear Ab Qn (S)on 01-25-2022 YULY 1 ANTIBODY QUAL Negative Normal Negative [facility] Comment on above: Order Comment: Jose Carlos oseguera Type: BLOOD SPECIMEN Ordering Facility: [facility] Address: [address] [place] [address] Result Comment: Anti -YULY-1 antibody is used as an aid in diagnosis of polymyositis and dermatomyositis especially with pulmonary involvement. A negative result cannot rule out polymyositis or dermatomyositis. Clinical correlation is required. Test Methodology: Multiplex flow immunoassay. Performed By: #### 1 6570-4, 62071-9, 47962-0, 91883-6, 38659-7, 47948-1, 43988-3, 31422-8 #### [facility] CLIA [id number] [address] [place] [address] [place] Nuclear Ab IA Ql (S)on 01-25 [facility] BY EIA, QUAL Negative Normal Negative [facility] Comment on above: Order Comment: Jose Carlos oseguera Type: BLOOD SPECIMEN Ordering Facility: [facility] Address: [address] [place] [address] Result Comment: The qualitative antinuclear antibody screen test performed using enzyme immunoassay including the following antigens: dsDNA, histones, SS-A, SS-B, Sm, Sm/FINANCIAL ACCOUNTING ANALYST, Scl-70, Yuly-1, and centromeric antigens. Performed By: #### 1 6570-4, 91924-2, 98202-6, 32131-1, 14045-8, 63978-6, 50448-1, 54274-3 #### [facility] CLIA [id number] [address] [place] [address] [place] RHEUMATOID FACTOR BLon 01-25 Rheumatoid factor Qn [IU]/mL <16 IU/mL [facility] Rheumatoid factor Qn [IU]/mL Normal <16 [facility] Comment on above: Order Comment: Specyelitza oseguera Type: BLOOD SPECIMEN Ordering Facility: [facility] Address: [address] [place], [place] [address] Performed By: #### 1 6570-4, 38734-1, 88241-7, 24013-6, 44605-6, 17583-0, 86599-4, 66057-1 #### [facility] CLIA [id number] [address] [place] [address] [place] Ribonucleoprotein extractabl e nuclear Ab Qn (S)on 01-25-2022 ANTI-FINANCIAL ACCOUNTING ANALYST QUAL Negative Normal Negative [facility] Comment on above: Order Comment: Jose Carlos oseguera Type: BLOOD SPECIMEN Ordering Facility: [facility] Address: [address] [place] [address] Performed By: #### 1 6570-4, 56044-5, 29788-0, 76604-2, 01025-5, 59513-4, 06691-3, 45250-8 #### [facility] CLIA [id number] [address] [place] [address] [place] RIBOSOMAL FINANCIAL ACCOUNTING ANALYST QUAL Negative Normal Negative [facility] Comment on above: Order Comment: Jose Carlos oseguera Type: BLOOD SPECIMEN Ordering Facility: [facility] Address: [address] [place] [address] Result Comment: Anti -Ribosomal RNA (Ribosomal P) antibody is used as an aid in diagnosis of systemic autoimmune diseases especially systemic lupus erythematosus and mixed connective tissue disease. Cross-reactivity with Anti-cota antibody is not uncommon. Clinical correlation is required. Test Methodology: Multiplex flow immunoassay. Performed By: #### 1 6570-4, 08729-8, 08209-3, 48393-8, 55248-3, 60593-8, 04956-7, 56059-8 #### [facility] CLIA [id number] [address] [place] [address] [place] SCL-70 extractable nuclear I gG IA Qn (S)on 01-25-2022 SCLERODERMA AB QUAL Negative Normal Negative [facility] Comment on above: Order Comment: Speci men Type: BLOOD SPECIMEN Ordering Facility: [facility] Address: [address] [place] [address] Performed By: #### 1 6570-4, 41937-0, 67547-5, 17656-2, 58076-8, 41659-3, 33286-4, 92649-6 #### [facility] CLIA [id number] [address] [place] [address] [place] SCLERODERMA IGG AB <0.2 Normal <1.0 [facility] Comment on above: Order Comment: Speci [facility] Type: BLOOD SPECIMEN Ordering Facility: [facility] Address: [address] [place] [address] Result Comment: Scl- 70/Scleroderma antibody test is used as an aid in diagnosis of systemic sclerosis especially the diffuse cutaneous form. A negative result cannot rule out systemic sclerosis. The final interpretation should consider clinical picture and other test results such as anti-centromere antibody. Test Methodology: Multiplex flow immunoassay. Performed By: #### 1 6570-4, 67921-4, 56757-4, 46627-6, 69671-0, 31418-7, 77102-5, 80979-2 #### [facility] CLIA [id number] [address] [place] [address] [place] Sjogrens syndrome-A extracta ble nuclear Ab Qn (S)on 01-25-2022 SSA ANTIBODY QUAL Negative Normal Negative [facility] Comment on above: Order Comment: Speci men Type: BLOOD SPECIMEN Ordering Facility: [facility] Address: [address] [place] [address] Performed By: #### 1 6570-4, 60373-4, 15199-9, 08781-5, 94216-9, 64257-4, 71776-2, 09093-2 #### [facility] CLIA [id number] [address] [place] [address] [place] Sjogrens syndrome-B extracta ble nuclear Ab Qn (S)on 01-25-2022 SSB ANTIBODY QUAL Negative Normal Negative [facility] Comment on above: Order Comment: Speci men Type: BLOOD SPECIMEN Ordering Facility: [facility] Address: [address] [place] [address] Performed By: #### 1 6570-4, 75381-7, 75087-3, 36152-5, 04376-3, 40260-1, 14713-0, 26250-4 #### [facility] CLIA [id number] [address] [place] [address] [place] Cota extractable nuclear Ig G Qn (S)on 01-25-2022 SM ANTIBODY QUAL Negative Normal Negative [facility] Comment on above: Order Comment: Speci men Type: BLOOD SPECIMEN Ordering Facility: [facility] Address: [address] [place] [address] Result Comment: Anti -Sm (Cota) antibody is used as an aid in diagnosis of systemic lupus erythematosus and its presence is associated with renal disease. A negative result cannot rule out systemic lupus erythematosus. Clinical correlation is required. Test Methodology: Multiplex flow immunoassay. Performed By: #### 1 6570-4, 28742-9, 22629-0, 12895-5, 36486-0, 64185-5, 74811-8, 32809-0 #### [facility] CLIA [id number] [address] [place] [address] [place] cCP IgG SerPl-aCncon 022 Cyclic citrullinated peptide IgG Qn <15 Normal <20 [facility] Comment on above: Order Comment: Speci men Type: BLOOD SPECIMEN Ordering Facility: [facility] Address: [address] [place], [place] [id number] Performed By: #### 1 6570-4, 82630-3, 95672-7, 02066-5, 16778-6, 43526-9, 02361-2, 24176-4 #### [facility] CLIA [id number] [address] [place] [address] [address] [place] XR ankle LT min 3V*on 2021 XR ankle LT min 3V* [facility] [employer] Other XR ankle LT min 3V* [facility] [employer] Other XR ankle LT min 3V* [address] [place] [address] [employer] Other XR ankle LT min 3V* [place] [address] [employer] Other XR ankle LT min 3V* XRay Report [employer] Other XR ankle LT min 3V* Signed [employer] Other XR ankle LT min 3V* Patient: Madyson Schmid MR#: [id number] [employer] Other XR ankle LT min 3V* : 2000 Acct:[id number] [employer] Other XR ankle LT min 3V* Age/Sex: 20 / F ADM Date: 10/10/21 [employer] Other XR ankle LT min 3V* Loc: XDUCLY Room: pe: [facility] [employer] Other XR ankle LT min 3V* Attending Dr: Christina GONZALEZ [employer] Other XR ankle LT min 3V* Ordering Provider: CARLOS Santos [employer] Other XR ankle LT min 3V* Date of Service: 10/10/21 [employer] Other XR ankle LT min 3V* XR/XR ankle LT min 3V*: Acute left ankle pain [employer] Other XR ankle LT min 3V* Copies to: Christina Pearce SOLDER SPRAYER-C [employer] Other XR ankle LT min 3V* Left ankle 10/10/2021. [employer] Other XR ankle LT min 3V* CLINICAL DATA: Left ankle pain after twisting injury. [employer] Other XR ankle LT min 3V* FINDINGS: 3 views of the left ankle were obtained. [employer] Other XR ankle LT min 3V* No acute fracture or dislocation is identified. No other bony abnormality is seen. Anterolateral [employer] Other XR ankle LT min 3V* soft tissue swelling is noted. [employer] Other XR ankle LT min 3V* X R/XR ankle LT min 3V* [employer] Other XR ankle LT min 3V* IMPRESSION: Soft tis cody swelling. No acute bony abnormality. [employer] Other XR ankle LT min 3V* Impression dictated by: Erick Cueto Jr., M.D.10/10/2021 4:24 PM [employer] Other XR ankle LT min 3V* Dictation Location: [place] [address] [employer] Other XR ankle LT min 3V* Transcribed By: MIRELLA 10/10/21 1627 [employer] Other XR ankle LT min 3V* Dictated By: Erick Cueto Jr, MD 10/10/21 1621 [employer] Other XR ankle LT min 3V* Signed By: [employer] Other XR ankle LT min 3V* 10/10/21 1624 [employer] Other Vital Signs Date Time Vital Sign Value Performing Clinician Facility 10-15-2024 16:11-0500 Body mass index (BMI) [Ratio] 38.94 kg/m2 Osei Helena DO Work Phone: [facility] 10-15-2024 16:11-0500 Body weight 106.14 kg Osei Helena DO Work Phone: [facility] 10-15-2024 16:11-0500 Diastolic blood pressure 64 mm[Hg] Osei Helena DO Work Phone: [facility] 10-15-2024 16:11-0500 Systolic blood pressure 118 mm[Hg] Osei Helena DO Work Phone: [facility] 10-02-2024 11:43-0500 Body mass index (BMI) [Ratio] 38.44 kg/m2 Osei Helena DO Work Phone: [facility] 10-02-2024 11:43-0500 Body weight 104.78 kg Osei Helena DO Work Phone: [facility] 10-02-2024 11:43-0500 Diastolic blood pressure 72 mm[Hg] Osei Helena DO Work Phone: [facility] 10-02-2024 11:43-0500 Systolic blood pressure 118 mm[Hg] Osei Helena DO Work Phone: [facility] 09-18-2024 10:52-0500 Body mass index (BMI) [Ratio] 38.74 kg/m2 Osei Helena DO Work Phone: [facility] 09-18-2024 10:52-0500 Body weight 105.6 kg Osei Helena DO Work Phone: [facility] 09-18-2024 10:52-0500 Diastolic blood pressure 68 mm[Hg] Osei Helena DO Work Phone: [facility] 09-18-2024 10:52-0500 Systolic blood pressure 118 mm[Hg] Osei Helena DO Work Phone: [facility] 09-03-2024 15:21-0500 Body mass index (BMI) [Ratio] 37.44 kg/m2 Osei Helena DO Work Phone: [facility] 09-03-2024 15:21-0500 Body weight 102.06 kg Osei Helena DO Work Phone: [facility] 09-03-2024 15:21-0500 Diastolic blood pressure 68 mm[Hg] Osei Helena DO Work Phone: [facility] 09-03-2024 15:21-0500 Systolic blood pressure 120 mm[Hg] Osei Helena DO Work Phone: [facility] 08-27-2024 13:08-0500 Body height 165.1 cm Camilla Hemmer PA Work Phone: [facility] 08-27-2024 13:08-0500 Body mass index (BMI) [Ratio] 38.11 kg/m2 Camilla Hemmer PA Work Phone: [facility] 08-27-2024 13:08-0500 Body weight 103.87 kg Camilla Hemmer PA Work Phone: [facility] 08-27-2024 13:08-0500 Diastolic blood pressure 72 mm[Hg] Camilla Hemmer PA Work Phone: [facility] 08-27-2024 13:08-0500 Heart rate 92 /min Camilla Hemmer PA Work Phone: [facility] 08-27-2024 13:08-0500 Respiratory rate 16 /min Camilla Hemmer PA Work Phone: [facility] 08-27-2024 13:08-0500 SaO2% (BldA) [Mass fraction] 98 % Camilla Hemmer PA Work Phone: [facility] 08-27-2024 13:08-0500 Systolic blood pressure 118 mm[Hg] Camilla TOLBERT Work Phone: [facility] 08-13-2024 09:22-0500 Body height 165.1 cm Hammad Hatch MD Work Phone: [facility] 08-13-2024 09:22-0500 Body mass index (BMI) [Ratio] 36.91 kg/m2 Hammad Hatch MD Work Phone: [facility] 08-13-2024 09:22-0500 Body weight 100.61 kg Hammad Hatch MD Work Phone: [facility] 08-05-2024 09:05-0500 Body mass index (BMI) [Ratio] 36.44 kg/m2 Flori Bairoil PA Work Phone: [facility] 08-05-2024 09:05-0500 Body weight 99.34 kg Flori Bairoil PA Work Phone: [facility] 08-05-2024 09:05-0500 Diastolic blood pressure 68 mm[Hg] Flori Louise PA Work Phone: [facility] 08-05-2024 09:05-0500 Systolic blood pressure 110 mm[Hg] Flori Bairoil PA Work Phone: [facility] 07-03-2024 14:41-0400 Body mass index (BMI) [Ratio] 35.65 kg/m2 Flori Bairoil PA Work Phone: [facility] 07-03-2024 14:41-0400 Body weight 97.18 kg Flori Louise PA Work Phone: [facility] 07-03-2024 14:41-0400 Diastolic blood pressure 64 mm[Hg] Flori Bairoil PA Work Phone: [facility] 07-03-2024 14:41-0400 Systolic blood pressure 116 mm[Hg] Flori Bairoil PA Work Phone: [facility] 06-04-2024 15:53-0400 Body mass index (BMI) [Ratio] 35.36 kg/m2 Osei Helena DO Work Phone: [facility] 06-04-2024 15:53-0400 Body weight 96.39 kg Osei Helena DO Work Phone: [facility] 06-04-2024 15:53-0400 Diastolic blood pressure 70 mm[Hg] Osei Helena DO Work Phone: [facility] 06-04-2024 15:53-0400 Systolic blood pressure 126 mm[Hg] Osei Helena DO Work Phone: [facility] 05-23-2024 09:35-0400 Body mass index (BMI) [Ratio] 35.01 kg/m2 Nom Nurse [facility] 05-23-2024 09:35-0400 Body weight 95.44 kg [facility] Nurse [facility] 05-20-2024 09:37-0400 Body height 165.1 cm Camilla Hemmer PA Work Phone: [facility] 05-20-2024 09:37-0400 Body mass index (BMI) [Ratio] 34.98 kg/m2 Camilla Hemmer PA Work Phone: [facility] 05-20-2024 09:37-0400 Body weight 95.35 kg Camilla Hemmer PA Work Phone: [facility] 05-20-2024 09:37-0400 Diastolic blood pressure 76 mm[Hg] Camilla Hemmer PA Work Phone: [facility] 05-20-2024 09:37-0400 Heart rate 87 /min Camilla Hemmer PA Work Phone: [facility] 05-20-2024 09:37-0400 Respiratory rate 16 /min Camilla Hemmer PA Work Phone: [facility] 05-20-2024 09:37-0400 SaO2% (BldA) [Mass fraction] 98 % Camilla Hemmer PA Work Phone: [facility] 05-20-2024 09:37-0400 Systolic blood pressure 108 mm[Hg] Camilla Alek TOLBERT Work Phone: [facility] 11-30-2023 09:33-0500 Body height 165.1 cm Jyoti Noble PA-C Work Phone: [facility] 11-30-2023 09:33-0500 Body weight 92.99 kg Jyoti Gallowayur PA-C Work Phone: [facility] 11-30-2023 09:33-0500 Diastolic blood pressure 79 mm[Hg] Jyoti Noble PA-C Work Phone: [facility] 11-30-2023 09:33-0500 Heart rate 84 /min Jyoti Gallowayur PA-C Work Phone: [facility] 11-30-2023 09:33-0500 SaO2% (BldA) [Mass fraction] 96 % Jyoti Gallowayur PA-C Work Phone: [facility] 11-30-2023 09:33-0500 Systolic blood pressure 118 mm[Hg] Jyoti Noble PA-C Work Phone: [facility] 06-13-2023 12:36-0400 Body height 165.1 cm Ibis Limer Work Phone: [facility] DO Work Phone: 06-13-2023 12:36-0400 Body mass index (BMI) [Ratio] 33.28 kg/m2 Ibis Limer Work Phone: [facility] [address] DO Work Phone: 06-13-2023 12:36-0400 Body surface area Derived from formula 1.98 m2 Ibis Limer Work Phone: [facility] DO Work Phone: 06-13-2023 12:36-0400 Body weight 90.72 kg Ibis Arenasncer Work Phone: [facility] 600 DO Work Phone: 06-13-2023 12:36-0400 Diastolic blood pressure 80 mm[Hg] [facility]bis A Myra [facility] Work Phone: 06-13-2023 12:36-0400 Heart rate 76 /min Ibis A Myra Work Phone: -[facility] 600 DO Work Phone: 06-13-2023 12:36-0400 Systolic blood pressure 116 mm[Hg] Ibis A Myra Work Phone: [facility] 600 DO Work Phone: 06-08-2023 21:50-0400 Diastolic blood pressure 59 mm[Hg] SOLDER SPRAYER-C Ibis Myra Work Phone: [facility] 06-08-2023 21:50-0400 Heart rate 82 /min SOLDER SPR[employer]ER-C Ibis Myra Work Phone: [facility] 06-08-2023 21:50-0400 Respiratory rate 18 /min SOLDER SPR[employer]ER-C Ibis Myra Work Phone: [facility] 06-08-2023 21:50-0400 SaO2% (BldA) [Mass fraction] 99 % SOLDER SPRAYER-C Ibis Myra Work Phone: [facility] 06-08-2023 21:50-0400 Systolic blood pressure 115 mm[Hg] SOLDER SPRAYER-C Ibis Myra Work Phone: [facility] 06-08-2023 16:35-0400 Body height 165.1 cm SOLDER SPRAYER-C Ibis Myra Work Phone: [facility] 06-08-2023 16:35-0400 Body temperature 97.8 [degF] SOLDER SPRAYER-C Ibis Myra Work Phone: [facility] 06-08-2023 16:35-0400 Body weight 91.6 kg SOLDER SPRAYER-C Ibis Myra Work Phone: [facility] 12-28-2022 15:00-0400 Body weight 89.36 kg Irvin Hanna MD Work Phone: [facility] 12-28-2022 15:00-0400 Diastolic blood pressure 86 mm[Hg] Irvin Hanna MD Work Phone: [facility] 12-28-2022 15:00-0400 Heart rate 79 /min Irvin Hanna MD Work Phone: [facility] 12-28-2022 15:00-0400 Respiratory rate 16 /min Irvin Hanna MD Work Phone: [facility] 12-28-2022 15:00-0400 Systolic blood pressure 119 mm[Hg] Irvin Hanna MD Work Phone: [facility] 10-13-2022 09:35-0500 Body height 165.1 cm Ibis A Myra Work Phone: [facility] 320 DO Work Phone: 10-13-2022 09:35-0500 Body mass index (BMI) [Ratio] 33.45 kg/m2 Ibis A Myra Work Phone: [facility] 320 DO Work Phone: 10-13-2022 09:35-0500 Body surface area Derived from formula 1.98 m2 Ibis A Myra Work Phone: [facility] 320 DO Work Phone: 10-13-2022 09:35-0500 Body weight 91.17 kg Ibis A Myra Work Phone: [facility] DO Work Phone: 10-13-2022 09:35-0500 Diastolic blood pressure 70 mm[Hg] Ibis A Myra Work Phone: [facility] DO Work Phone: 10-13-2022 09:35-0500 Heart rate 76 /min Ibis A Myra Work Phone: [facility] DO Work Phone: 10-13-2022 09:35-0500 Systolic blood pressure 102 mm[Hg] Ibis A Myra Work Phone: [facility] DO Work Phone: 09-11-2022 09:58-0500 Diastolic blood pressure 82 mm[Hg] Ibis A Myra Work Phone: [facility] 250 DO Work Phone: 09-11-2022 09:58-0500 Diastolic blood pressure 80 mm[Hg] Ibis A Myra Work Phone: [facility] 250 DO Work Phone: 09-11-2022 09:58-0500 Systolic blood pressure 112 mm[Hg] Ibis A Myra Work Phone: [facility] DO Work Phone: 09-11-2022 09:58-0500 Systolic blood pressure 108 mm[Hg] Ibis A Myra Work Phone: [facility] 250 DO Work Phone: 09-11-2022 08:57-0500 Body height 165.1 cm Ibis A Myra Work Phone: [facility] DO Work Phone: 09-11-2022 08:57-0500 Body mass index (BMI) [Ratio] 32.95 kg/m2 Ibis A Myra Work Phone: [facility] 250 DO Work Phone: 09-11-2022 08:57-0500 Body surface area Derived from formula 1.97 m2 Ibis A Myra Work Phone: [facility] 250 DO Work Phone: 09-11-2022 08:57-0500 Body weight 89.81 kg Ibis A Myra Work Phone: [facility] DO Work Phone: 09-11-2022 08:57-0500 Diastolic blood pressure 68 mm[Hg] Ibis A Myra Work Phone: [facility] DO Work Phone: 09-11-2022 08:57-0500 Heart rate 74 /min Ibis A Myra Work Phone: [facility] DO Work Phone: 09-11-2022 08:57-0500 Systolic blood pressure 102 mm[Hg] Ibis A Myra Work Phone: [facility] DO Work Phone: 07-31-2022 10:14-0500 Body weight 89.81 kg Irvin Hanna MD Work Phone: [facility] 07-31-2022 10:14-0500 Diastolic blood pressure 71 mm[Hg] Irvin Hanna MD Work Phone: [facility] 07-31-2022 10:14-0500 Heart rate 92 /min Irvin Hanna MD Work Phone: [facility] 07-31-2022 10:14-0500 Systolic blood pressure 109 mm[Hg] Irvin Hanna MD Work Phone: [facility] 07-21-2022 07:27-0400 Body height 165.1 cm Ibis A Myra Work Phone: [facility] DO Work Phone: 07-21-2022 07:27-0400 Body mass index (BMI) [Ratio] 33.45 kg/m2 Ibis A Myra Work Phone: [facility] DO Work Phone: 07-21-2022 07:27-0400 Body surface area Derived from formula 1.98 m2 Ibis A Myra Work Phone: [facility] DO Work Phone: 07-21-2022 07:27-0400 Body weight 91.17 kg Ibis A Myra Work Phone: [facility] DO Work Phone: 07-21-2022 07:27-0400 Diastolic blood pressure 72 mm[Hg] Ibis A Myra Work Phone: [facility] DO Work Phone: 07-21-2022 07:27-0400 Heart rate 64 /min Ibis A Myra Work Phone: [facility] DO Work Phone: 07-21-2022 07:27-0400 Systolic blood pressure 106 mm[Hg] Ibis A Myra Work Phone: [facility] DO Work Phone: 07-10-2022 10:45-0400 Body height 165.1 cm Ibis A Myra Work Phone: [facility] DO Work Phone: 07-10-2022 10:45-0400 Body mass index (BMI) [Ratio] 32.95 kg/m2 Ibis A Myra Work Phone: [facility] DO Work Phone: 07-10-2022 10:45-0400 Body surface area Derived from formula 1.97 m2 Ibis A Myra Work Phone: [facility] DO Work Phone: 07-10-2022 10:45-0400 Body weight 89.81 kg Ibis A Myra Work Phone: [facility] DO Work Phone: 07-10-2022 10:45-0400 Diastolic blood pressure 70 mm[Hg] Ibis A Myra Work Phone: [facility] DO Work Phone: 07-10-2022 10:45-0400 Heart rate 76 /min Ibis A Myra Work Phone: [facility] DO Work Phone: 07-10-2022 10:45-0400 Systolic blood pressure 104 mm[Hg] Ibis A Myra Work Phone: [facility] DO Work Phone: 06-01-2022 11:36-0400 Body height 165.1 cm SOLDER SPRAYER-C Ibis Myra Work Phone: [facility] 06-01-2022 11:36-0400 Body temperature 100 [degF] SOLDER SPRAYER-C Ibis Myra Work Phone: [facility] 06-01-2022 11:36-0400 Body weight 88.4 kg SOLDER SPRAYER-C Ibis Myra Work Phone: [facility] 06-01-2022 11:36-0400 Diastolic blood pressure 68 mm[Hg] SOLDER SPRAYER-C Ibis Myra Work Phone: [facility] 06-01-2022 11:36-0400 Heart rate 99 /min SOLDER SPRAYER-C Ibis Myra Work Phone: [facility] 06-01-2022 11:36-0400 Respiratory rate 18 /min SOLDER SPRAYER-C Ibis Myra Work Phone: [facility] 06-01-2022 11:36-0400 SaO2% (BldA) [Mass fraction] 97 % SOLDER SPRAYER-C Ibis Myra Work Phone: [facility] 06-01-2022 11:36-0400 Systolic blood pressure 121 mm[Hg] SOLDER SPRAYER-C Ibis Myra Work Phone: [facility] 05-18-2022 09:42-0400 Body height 165.1 cm Ibis A Myra Work Phone: [facility] DO Work Phone: 05-18-2022 09:42-0400 Body mass index (BMI) [Ratio] 31.95 kg/m2 Ibis A Myra Work Phone: [facility] DO Work Phone: 05-18-2022 09:42-0400 Body surface area Derived from formula 1.94 m2 Ibis A Myra Work Phone: [facility] DO Work Phone: 05-18-2022 09:42-0400 Body weight 87.09 kg Ibis A Myra Work Phone: [facility] DO Work Phone: 05-18-2022 09:42-0400 Diastolic blood pressure 74 mm[Hg] Ibis A Myra Work Phone: [facility] DO Work Phone: 05-18-2022 09:42-0400 Heart rate 72 /min Ibis A Myra Work Phone: [facility] DO Work Phone: 05-18-2022 09:42-0400 Systolic blood pressure 102 mm[Hg] Ibis A Myra Work Phone: [facility] DO Work Phone: 03-23-2022 09:11-0400 Diastolic blood pressure 80 mm[Hg] Ibis A Myra Work Phone: [facility] DO Work Phone: 03-23-2022 09:11-0400 Systolic blood pressure 110 mm[Hg] Ibis A Myra Work Phone: [facility] DO Work Phone: 03-23-2022 09:06-0400 Body height 166.37 cm Ibis A Myra Work Phone: [facility] DO Work Phone: 03-23-2022 09:06-0400 Body mass index (BMI) [Ratio] 31.3 kg/m2 Ibis A Myra Work Phone: [facility] DO Work Phone: 03-23-2022 09:06-0400 Body surface area Derived from formula 1.95 m2 Ibis A Myra Work Phone: [facility] 250 DO Work Phone: 03-23-2022 09:06-0400 Body weight 86.64 kg Ibis A Myra Work Phone: [facility] DO Work Phone: 03-23-2022 09:06-0400 Diastolic blood pressure 76 mm[Hg] Ibis A Myra Work Phone: [facility] DO Work Phone: 03-23-2022 09:06-0400 Heart rate 66 /min Ibis A Myra Work Phone: [facility] DO Work Phone: 03-23-2022 09:06-0400 Systolic blood pressure 118 mm[Hg] Ibis Renteria Work Phone: [facility] DO Work Phone: 01-25-2022 08:16-0400 Body height 165.1 cm Irvin Hanna MD Work Phone: [facility] 01-25-2022 08:16-0400 Body weight 86.36 kg Irvin Hanna MD Work Phone: [facility] 01-25-2022 08:16-0400 Diastolic blood pressure 83 mm[Hg] Irvin Hanna MD Work Phone: [facility] 01-25-2022 08:16-0400 Heart rate 71 /min Irvin Hanna MD Work Phone: [facility] 01-25-2022 08:16-0400 Systolic blood pressure 116 mm[Hg] Irvin Hanna MD Work Phone: [facility] 01-10-2022 12:45-0400 Body height 165.1 cm Ok Mckeon Other [facility] [employer] Other 01-10-2022 12:45-0400 Body mass index (BMI) [Ratio] 31.61 kg/m2 Ok [employer] Other [employer] Other 01-10-2022 12:45-0400 Body temperature 97.8 [degF] Ok Mckeon Other [place] Other 01-10-2022 12:45-0400 Body weight 86.18 kg Ok Mckeon Other [facility] Other 01-10-2022 12:45-0400 Diastolic blood pressure 80 mm[Hg] Ok Whitneyelaine Other [facility] Other 01-10-2022 12:45-0400 SaO2% (BldA) [Mass fraction] 96 % Ok Mckeon Other [facility] Other 01-10-2022 12:45-0400 Systolic blood pressure 120 mm[Hg] Ok Mckeon Other [facility] Other 10-10-2021 15:50-0500 Body height 165.1 cm Christina Pearce Other [facility] Other 10-10-2021 15:50-0500 Body mass index (BMI) [Ratio] 31.61 kg/m2 Christina Lambmond Other [facility] Other 10-10-2021 15:50-0500 Body temperature 97 [degF] Christina Lambmond Other [facility] Other 10-10-2021 15:50-0500 Body weight 86.18 kg Christina Lamb[place] Other [facility] Other 10-10-2021 15:50-0500 Diastolic blood pressure 76 mm[Hg] Christina Portia Other [facility] Other 10-10-2021 15:50-0500 Respiratory rate 18 /min Christian Portia Other [facility] Other 10-10-2021 15:50-0500 SaO2% (BldA) [Mass fraction] 99 % Crhistina Lambmond Other [facility] Other 10-10-2021 15:50-0500 Systolic blood pressure 123 mm[Hg] Christina Pearce Other [facility] Other Encounters Encounter Date Encounter Type Care Provider Facility Start: 10-23-2024 End: 10-23-2024 Clinisync Result Encounter Generic External Data Provider [facility] External Department Unsolicited Start: 10-23-2024 End: 10-23-2024 Clinisync Result Encounter Generic External Data Provider [facility] External Department Unsolicited Start: 10-17-2024 End: 10-17-2024 Orders Only Roshni Jo RN [facility] Comment on above: Dichorionic diamniot ic twin in third trimester (Primary Dx) Start: 10-16-2024 End: 10-16-2024 ambulatory OSEI R [facility] Start: 10-15-2024 End: 10-15-2024 flow sheet [...] 09-19-2024 End: 09-26-2024 Orders Only Chrissie Willis [facility] Comment on above: Dichorionic diamniot ic [...] of Start: 09-03-2024 End: 09-03-2024 ambulatory OSEI MALIK Not Available Start: 09-03-2024 End: 09-03-2024 Bamboo flowsheet Osei Malik DO Work Phone: [facility] Start: 09-03-2024 End: 09-03-2024 Bamboo flowsheet Osei Malik DO Work Phone: [facility] Start: 09-02-2024 End: 09-02-2024 ambulatory JYOTI DICKEY Facility:[facility] Comment on above: POTS (postural ortho [...] encounter Marycarmen Kennedy RN [facility] Start: 08-27-2024 End: 08-27-2024 Bamboo flowsheet Camilla TOLBERT Work Phone: [facility] Start: 08-27-2024 End: 08-27-2024 Bamboo flowsheet Camilla TOLBERT Work Phone: [facility] Start: 08-27-2024 End: 08-27-2024 Telephone encounter Camilla TOLBERT Work Phone: [facility] Start: 08-27-2024 End: 08-27-2024 Office outpatient visit 15 minutes Camilla TOLBERT Work Phone: [facility] Comment on above: Mild intermittent as thma with acute exacerbation (CMS/HCC) (Primary Dx); POTS (postural orthostatic tachycardia syndrome) Start: 08-27-2024 End: 08-27-2024 ambulatory CAMILLA COLEMANMIKE Not Available Start: 08-20-2024 End: 08-20-2024 Clinisync Result Encounter Generic External Data Provider [facility] External Department Unsolicited Start: 08-20-2024 End: 08-20-2024 Clinisync Result Encounter Generic External Data Provider [facility] External Department Unsolicited Start: 08-15-2024 End: 08-15-2024 Orders Only Sammi Green RN [facility] Comment on above: Dichorionic diamniot ic twin in second trimester (Primary Dx); POTS (postural orthostatic tachycardia syndrome); Asthma during ; 20 weeks gestation of Start: 08-13-2024 End: 08-13-2024 Office outpatient new 45 minutes Muna Lenz MD Work Phone: [facility] Comment on above: Dichorionic diamniot ic twin in second trimester (Primary Dx); POTS (postural orthostatic tachycardia syndrome); Asthma during ; 20 weeks gestation of Start: 08-13-2024 End: 08-13-2024 ambulatory OSEI Barragan [facility] Start: 08-11-2024 End: 08-13-2024 Clinisync Result [...] External Result Encounter Flori TOLBERT Work Phone: [facility] External Department Unsolicited Start: 08-05-2024 End: 08-05-2024 Patient encounter procedure Flori TOLBERT Work Phone: [facility] Healthcare Work Phone: Start: 08-05-2024 End: 08-05-2024 Periodic preventive med est patient 18-39 yrs Flori TOLBERT Work Phone: [facility] BCP OB Comment on above: Well woman exam with routine gynecological exam; Second trimester ; Vaginal discharge; STD exposure; Leg cramping; Heartburn Start: 08-05-2024 End: 08-05-2024 ambulatory FLORI GIL Not Available Start: 07-24-2024 End: 07-24-2024 ambulatory Celeste Watson Facility:[facility] Start: 07-07-2024 End: 07-07-2024 Chart abstracting Hammad Hatch MD Work Phone: [facility] Start: 07-03-2024 End: 07-03-2024 flow sheet Flori TOLBERT Work Phone: [facility] Comment on above: Second trimester pre gnancy; 14 weeks gestation of Start: 07-03-2024 End: 07-03-2024 ambulatory FLORI GIL Not Available Start: 07-03-2024 End: 07-03-2024 Bamboo flowsheet Flori TOLBERT Work Phone: [facility] Start: 07-03-2024 End: 07-03-2024 Bamboo flowsheet Flori TOLBERT Work Phone: [facility] Start: 07-02-2024 End: 07-02-2024 ambulatory Joie Nathan Yomaira [facility] Work Phone: Neurology Comment on above: POTS (postural ortho static tachycardia syndrome) (Primary Dx); Near syncope Start: 07-02-2024 End: 07-02-2024 Telemedicine consultation with patient Joietawana Seaman APRN.[facility] Work Phone: Neurology Start: 06-10-2024 End: 06-11-2024 [...] 15 minutes Camilla TOLBERT Work Phone: [facility] Comment on above: Pain of left sacroil iac joint (Primary Dx) Start: 05-20-2024 End: 05-20-2024 ambulatory CAMILLA Latesha ALEK Not Available Start: 04-12-2024 End: 04-12-2024 ambulatory Celeste Watson Facility:[facility] Start: 04-12-2024 End: 04-12-2024 Patient encounter procedure Celeste Shirley [facility] Start: 03-25-2024 Patient encounter status Camilla Alek TOLBERT Work Phone: [facility] Start: 03-25-2024 End: 03-25-2024 ambulatory JB Charlton NAZIA Not Available Start: 03-20-2024 End: 03-20-2024 ambulatory Jyoti Dickey PA-C Work Phone: Neurology Comment on above: POTS (postural ortho static tachycardia syndrome) (Primary Dx) Start: 03-20-2024 End: 03-20-2024 Telemedicine consultation with patient Jyoti Dickey PA-C Work Phone: Neurology Start: 03-14-2024 End: 03-14-2024 ambulatory Celeste Watson Facility:[facility] Start: 03-14-2024 End: 03-14-2024 Patient encounter procedure Celeste Shirley [facility] Start: 02-26-2024 End: 02-26-2024 ambulatory JB Charlton NAZIA Not Available Start: 01-22-2024 ambulatory LAN MANAGER Krista L Mae Facil ity:[facility] Start: 01-01-2024 End: 01-01-2024 ambulatory CELESTE WATSON Not Available Start: 12-21-2023 End: 12-21-2023 ambulatory OSEI MALIK Not Available Start: 12-11-2023 End: 12-11-2023 ambulatory LAN MANAGER Krista L Mae Facility:[facility]ena Start: 12-11-2023 End: 12-11-2023 ambulatory CELESTE WATSON Not Available Start: 11-30-2023 End: 11-30-2023 ambulatory AURORA SANTIAGO Facility:[facility] Start: 11-30-2023 End: 11-30-2023 Patient encounter procedure Jyoti Dickey PA-C Work Phone: Neurology Comment on above: POTS (postural ortho static tachycardia syndrome) (Primary Dx) Start: 11-12-2023 End: 11-12-2023 Patient encounter procedure Autonomic 2 Neur Main [facility] Start: 11-12-2023 End: 11-12-2023 ambulatory AURORA SANTIAGO Neurology Comment on above: Procedure Start: 10-10-2023 End: 10-10-2023 ambulatory AURORA SANTIAGO Facility:[facility] Start: 07-24-2023 End: 07-24-2023 ambulatory Jocelin FELIX Facility:[facility] Start: 07-20-2023 Telephone encounter Arin Tinajero RN [facility] Comment on above: Referral Follow-up Start: 07-10-2023 End: 07-10-2023 ambulatory JOSE ARMANDO GREY Facility:[facility] Start: 07-10-2023 End: 07-10-2023 Office outpatient new 30 minutes Jose Armando Grey DO Work Phone: [facility] [place] Comment on above: Chronic pain of righ t knee (Primary Dx); Tendinopathy of gluteal region Start: 07-06-2023 Orders Only Jose Armando Grey DO Work Phone: Orthopaedics Comment on above: Right knee pain, uns pecified chronicity (Primary Dx) Start: 07-05-2023 End: 07-05-2023 ambulatory SOLDER SPRAYER-C Ibis Renteria Work Phone: [facility] Work Phone: Start: 07-05-2023 End: 07-05-2023 Patient encounter procedure SOLDER SPRAYER-C Ibis Renteria Work Phone: [facility]-Flu Vaccine Start: 06-13-2023 Office outpatient vi sit 15 minutes Ibis Limer Work Phone: -[facility] 600 DO Work Phone: Start: 06-13-2023 ambulatory Tabatha Cota Facility:1 [id number] Start: 06-08-2023 End: 06-08-2023 Emergency department patient visit SOLDER SPRAYER-C Ibiseren Limer Work Phone: [facility]-Emergency [facility] Work Phone: Start: 04-25-2023 End: 04-25-2023 ambulatory SOLDER SPRAYER-C Ibis Winter Myra Work Phone: [facility] Work Phone: Start: 04-25-2023 End: 04-25-2023 Departed Referred SOLDER SPRAYER-C Ibis Arenasncer Work Phone: [facility] [address] Work Phone: Start: 03-14-2023 ambulatory CHAN MUÑIZ Fa cility:[facility] Start: 01-18-2023 End: 01-18-2023 ambulatory SOLDER SPRAYER-C Ibis Winter Myra Work Phone: [facility] Work Phone: Start: 01-18-2023 End: 01-18-2023 Departed Referred SOLDER SPRAYER-C Ibis Myra Work Phone: [facility] [address] Work Phone: Start: 12-28-2022 End: 12-28-2022 Patient encounter procedure Irvin Hanna MD Work Phone: Rheumatology Comment on above: Pain and swelling of knee, right (Primary Dx); Joint stiffness Start: 10-31-2022 Chart Update Ibis Ely cer Work Phone: [facility] 250 DO Work Phone: Start: 10-16-[address] Melodie Alfonso ty:[id number] Start: 10-13-2022 Current tobacco non- user cad cap copd pv dm Ibisniharika Limer Work Phone: [facility] 320 DO Work Phone: Start: 10-13-[address] Annalee Pierre acility: Start: 09-11-2022 Office outpatient vi sit 15 minutes Ibis Arenasncer Work Phone: [facility] 250 DO Work Phone: Start: 09-11-2022 Patient encounter procedure Ibis Renteria Work Phone: [facility] 250 DO Work Phone: Start: 09-11-[address] Melodie Alfonso ty: Start: 09-07-2022 Telephone encounter [facility]imer [facility] Work Phone: Start: 08-27-[address] Annalee Pierre acility: Start: 08-01-2022 AUDIT Ibis Arenasn cer Work Phone: [facility] 320 DO Work Phone: Start: 07-31-2022 EVENT EZEKIEL, Provider : HERIBERTO SERRANO DESIGN SUPERVISOR 1,[id number], Status: Pen, Time: 11:00 AM Ibis [facility]cer [facility] Work [facility]: Start: 07-31-[address] Annalee Pierre acility: Start: 07-31-2022 End: 07-31-2022 Patient encounter procedure Irvin Hanna MD Work Phone: Rheumatology Comment on above: Pain and swelling of knee, right (Primary Dx); Joint stiffness; Inflammatory arthritis Start: 07-26-2022 ambulatory IBIS RENTERIA Facilit y:[facility] Start: 07-21-2022 Current tobacco non- user cad cap copd pv dm Ibis A Myra Work Phone: [facility] 320 DO Work Phone: Start: 07-21-[address] Annalee Maza F acility: Start: 07-10-2022 Office outpatient vi sit 25 minutes Ibis A Myra Work Phone: [facility] 250 DO Work Phone: Start: 07-10-2022 Patient encounter procedure Ibis A Myra Work Phone: [facility] 250 DO Work Phone: Start: 07-10-[address] Melodie Green ty: Start: 06-15-2022 Telephone encounter Ibis Rhonda Myra Work Phone: [facility] 250 DO Work Phone: Start: 06-12-2022 End: 06-12-[address] Annalee Maza Facility:[id number] Start: 06-05-2022 Patient encounter procedure Ibis A Myra Work Phone: [id number] [place] [facility] Work Phone: Start: 06-01-2022 End: 06-01-2022 Emergency department patient visit SOLDER SPRAYER-C Ibis Arenasncer Work Phone: [facility]-Emergency Room Start: 05-18-2022 Office outpatient vi sit 25 minutes Ibis A Myar Work Phone: [facility] 250 DO Work Phone: Start: 05-18-2022 Patient encounter procedure Ibis A Myra Work Phone: [facility] 250 DO Work Phone: Start: 05-08-2022 End: 05-08-2022 Patient encounter procedure SOLDER SPRAYER-C Ibis Myra Work Phone: [facility]-Respiratory Therapy Start: 05-03-2022 Result Review Ibis A Spen cer Work Phone: [facility] 250 DO Work Phone: Start: 05-03-2022 SURGNON, Provider: María Elena Freire, Status: Pen, Time: 10:00 AM Ibis A Myra Work Phone: [facility] 250 DO Work Phone: Start: 05-03-2022 End: 05-03-2022 Patient encounter procedure SOLDER SPRAYER-C Ibis Myra Work Phone: [facility]-XRay [facility] Start: 03-28-2022 EVENT EZEKIEL, Provider : HERIBERTO SINGH DESIGN SUPERVISOR 1,[id number], Status: Pen, Time: 8:00 AM Ibis A Myra Work Phone: [facility] 250 DO Work Phone: Start: 03-28-2022 Patient encounter procedure Ibis A Myra Work Phone: [facility] 250 DO Work Phone: Start: 03-26-2022 Chart Update Ibis A Spen cer Work Phone: [facility] 250 DO Work Phone: Start: 03-24-2022 End: 03-24-2022 Patient encounter procedure SOLDER SPRAYER-C Ibis Myra Work Phone: [facility]-Lab [facility] Start: 03-23-2022 Office consultation new/estab patient 60 min Ibis A Myra Work Phone: [facility] 250 DO Work Phone: Start: 03-23-2022 Office outpatient ne w 45 minutes Ibis A Myra Work Phone: [facility] Work Phone: Start: 02-02-2022 Telephone encounter Irvin shannon MD Work Phone: Rheumatology Comment on above: Orders Start: 01-25-2022 End: 01-25-2022 Patient encounter procedure Irvin Hanna MD Work Phone: Rheumatology Comment on above: Pain and swelling of knee, right (Primary Dx); Joint stiffness Start: 01-10-2022 End: 01-10-2022 ambulatory Ok Mckeon Other [facility] Other Start: 01-10-2022 Office outpatient ne w 45 minutes Ok Mckeon [facility] Start: 10-10-2021 End: 10-10-2021 ambulatory Christina Pearce Other [facility] Other Start: 10-10-2021 Office outpatient vi sit 15 minutes Christina Pearce [facility] [place] Procedures Date Procedure Procedure Detail Performing Clinician Start: 10-23-2024 US OB BPP W NON-STRESS Generic External Data Provider Start: 10-15-2024 Urnls dip stick/tabl et rgnt non-auto w/o micrscp Osei Helena DO Work Phone: Start: 10-02-2024 Urnls dip stick/tabl et rgnt non-auto w/o micrscp Osei Helena DO Work Phone: Start: 09-25-2024 [facility] UA (CLEAN/CATCH) CONTINUOUS VULCANIZING MACHINE OPERATOR/MICRO IF IND. Osei Helena DO Work Phone: [...] in Cervix by Cyto stain Chrissie Willis CMA Start: 07-03-2024 Urnls dip stick/tabl et rgnt [...] Osei Helena DO Work Phone: Start: 07-10-2023 [facility] Pr ovider Historical Start: 06-08-2023 Plain chest X-ray SOLDER SPRAYER-C Ibis Renteria Work Phone: Start: 01-18-2023 Plain chest X-ray SOLDER SPRAYER-C Ibis Renteria Work Phone: Start: 05-03-2022 Plain chest X-ray SOLDER SPRAYER-C Ibis Renteria Work Phone: Start: 08-05-2021 Arthroscopy of knee Lorna Watson Arthroscopy of knee Ibis Ellis Myra Work Phone: Cryotherapy of warts Rajeev Watson Extraction of wisdom tooth Ibis Ellis Myra Work Phone: SARS-CoV-2, Influenz a & RSV (PCR) SOLDER SPRAYER-C Ibis Limer Work Phone: Tonsillectomy and adenoidectomy Ibis Renteria Work Phone: Tonsillectomy and adenoidectomy Celeste Watson NEGATED: Highlighted row has not occurred! Total colonoscopy Ibis A Myra Work Phone: Plan of Treatment Date Care Activity Detail Author Start: 03-25-2034 DTaP,Tdap and Td Vac cines (8 - Td or Tdap) DTaP,Tdap and Td Vaccines (8 - Td or Tdap) [employer] Start: 03-25-2034 Urine microalbumin profile DTaP,Tdap,Td Vaccine (8 - Td or Tdap) [facility] Start: 08-05-2027 Screening for malign ant neoplasm of cervix Pap Smear [employer] Start: 10-17-2025 End: 10-17-2025 US MFM with or without consult US MFM with or without consult Imaging Routine Dichorionic diamniotic twin in third trimester Expected: 10/17/2025 (Approximate), Expires: 10/17/2025 [employer] Work Phone: Comment on above: Expected: 10/17/2025 (Approximate), Expires: 10/17/2025 Start: 09-19-2025 End: 09-19-2025 US MFM with or without consult US MFM with or without consult Imaging Routine Dichorionic diamniotic twin in second trimester Expected: 09/19/2025 (Approximate), Expires: 09/19/2025 [facility] Work Phone: Comment on above: Expected: 09/19/2025 (Approximate), Expires: 09/19/2025 Start: 08-15-2025 End: 08-15-2025 US MFM with or without consult US MFM with or without consult Imaging Routine Dichorionic diamniotic twin in second trimester POTS (postural orthostatic tachycardia syndrome) Asthma during 20 weeks gestation of Expected: 08/15/2025 (Approximate), Expires: 08/15/2025 [facility] Work Phone: Comment on above: Expected: 08/15/2025 (Approximate), Expires: 08/15/2025 Start: 08-13-2025 Adult BMI Screening Adult BMI Screen ing [facility] Start: 08-13-2025 Tobacco Screening Tobacco Screening [facility] Start: 11-12-2024 End: 11-12-2024 Patient encounter procedure 11/12/2024 9:30 AM EST Appointment [facility] [address] [place] [phone] [facility] Start: 10-29-2024 End: 10-29-2024 Patient encounter procedure 10/29/2024 3:50 PM EST Routine [facility] [address] [facility] [place] [phone] Osei Malik, [address] [place] [address] [facility] Start: 10-16-2024 End: 10-16-2024 Patient encounter procedure 10/16/2024 1:00 PM EST Appointment [facility] [address] [place] [phone] [facility] Start: 10-15-2024 End: 10-15-2024 Patient encounter procedure [facility] Comment on above: Arrived Start: 10-15-2024 End: 10-15-2025 US biophysical profile w non stress test US biophysical profile w non stress test Imaging Routine Dichorionic diamniotic twin in second trimester Expected: 10/15/2024 (Approximate), Expires: 10/15/2025 [facility] Work Phone: Comment on above: Expected: 10/15/2024 (Approximate), Expires: 10/15/2025 Start: 10-02-2024 End: 10-02-2024 Patient encounter procedure 10/02/2024 11:00 AM EST Routine [facility] [address] [place] [address] Osei Malik DO [address] [facility] [place] [address] [facility] Start: 09-23-2024 End: 09-23-2024 Patient encounter procedure 09/23/2024 1:00 PM EST Appointment [facility] - Ul[facility]ound [address] [place] [phone] [facility] Start: 09-19-2024 End: 09-19-2024 Patient encounter procedure 09/19/2024 9:30 AM EST Appointment [facility] [address] [place] [phone] [facility] Start: 09-18-2024 End: 09-18-2024 Patient encounter procedure [facility] Comment on above: Arrived Start: 09-03-2024 End: 09-03-2024 Patient encounter procedure [facility] Comment on above: Arrived Start: 09-02-2024 End: 09-02-2024 ambulatory 09/02/2024 12:[address] [facility] [address] [place] [address] Jyoti Dickey PA-C [address] [place] [address] F/u Neurology Comment on above: F/u Start: 09-02-2024 End: 09-02-2024 ambulatory 09/02/2024 10:45 AM EST [facility] [address] [id number] Jyoti Dickey PA-C [address] [id number] F/u Neurology Comment on above: F/u Start: 08-27-2024 End: 08-27-2024 Patient encounter procedure 08/27/2024 1:00 PM EST Office Visit [facility] [address] [facility] [address] [place] [address] Camilla Garcia PA [address] [facility] [address] [place] [address] Arrived [facility] Comment on above: Arrived Start: 08-13-2024 End: 08-13-2024 Patient encounter procedure [facility] Start: 08-05-2024 End: 02-02-2025 Alpha fetoprotein, maternal Alpha fetoprotein, maternal Lab Routine Second trimester Expected: 08/05/2024 (Approximate), Expires: 02/02/2025 [facility] Comment on above: Expected: 08/05/2024 (Approximate), Expires: 02/02/2025 Start: 08-05-2024 End: 08-05-2024 Patient encounter procedure 08/05/2024 8:50 AM EST Routine [facility] [address] [facility] [place] [address] Osei Malik DO [address], [place] [id number] [facility] Start: 07-03-2024 End: 07-03-2024 Patient encounter procedure [facility] Comment on above: Arrived Start: 06-04-2024 End: 06-04-2024 Patient encounter procedure [facility] Comment on above: [facility] Start: 05-25-2024 Covid-19 Vaccine () Covid-19 Vaccine () [facility] Start: 05-25-2024 Covid-19 Vaccine () Covid-19 Vaccine () [facility] Start: 05-25-2024 Influenza vaccination C [facility] Start: 05-23-2024 End: 05-23-2025 ABO/Rh ABO/Rh Lab Routine Missed menses Expected: 05/23/2024 (Approximate), Expires: 05/23/2025 [facility] Healthcare Comment on above: Expected: 05/23/2024 (Approximate), Expires: 05/23/2025 Start: 05-23-2024 End: 05-23-2025 Blood type and Indirect antibody screen panel - Blood Type and screen Lab Routine Missed menses Expected: 05/23/2024 (Approximate), Expires: 05/23/2025 [facility] Healthcare Work Phone: Comment on above: Expected: 05/23/2024 (Approximate), Expires: 05/23/2025 Start: 05-23-2024 End: 05-23-2025 US Pelvis transvaginal US OB transvaginal Imaging Routine Missed menses Expected: 05/23/2024 (Approximate), Expires: 05/23/2025 [facility] Healthcare Comment on above: Expected: 05/23/2024 (Approximate), Expires: 05/23/2025 Start: 05-23-2024 End: 05-23-2024 ambulatory 05/23/2024 9:00 AM EDT Initial [facility] [address] [place] [address] [facility] Start: 05-23-2024 End: 05-23-2024 Professional / ancillary services management 05/23/2024 8:30 AM EDT Ancillary Procedure [facility] [address] [place] [address] [facility] Start: 05-20-2024 End: 05-20-2024 Patient encounter procedure 05/20/2024 9:30 AM EDT Office Visit [facility] [address] [facility] [address] [place] [phone] Camilla Garcia PA [address] [facility] [address] [place] [address] Arrived [facility] Comment on above: Arrived Start: 04-20-2024 Urine microalbumin profile DTaP,Tdap,Td Vaccine (7 - Td or Tdap) [facility] Start: 09-24-2023 Depression Assessment Depression Ass essment [facility] Start: 05-25-2023 Covid-19 Vaccine () Covid-19 Vaccine () [facility] Start: 05-25-2023 Influenza vaccination C [facility] Start: 04-25-2023 [facility] Start: 04-06-2023 FUV, Provider: Annalee Maza, Status: Pen, Time: 2:40 PM FUV, Provider: Annalee Maza, Status: Pen, Time: 2:40 PM [facility] DO Work Phone: Start: 2022 PAP TESTING PAP TESTING [facility] Start: 2022 Screening for malign ant neoplasm of cervix [facility] Start: 10-13-2022 FUV, Provider: Annalee Maza, Status: Pen, Time: 9:20 AM FUV, Provider: Annalee Maza, Status: Pen, Time: 9:20 AM [facility] 320 DO Work Phone: Start: 09-24-2022 DEPRESSION ASSESSMENT DEPRESSION ASS ESSMENT [facility] Start: 09-11-2022 FUV, Provider: Melodie Alcaraz, Status: Pen, Time: 9:30 AM FUV, Provider: Melodie Alcaraz, Status: Pen, Time: 9:30 AM [facility]-Jose 250 DO Work Phone: Start: 09-11-2022 EVENT EZEKIEL, Provider : HERIBERTO SINGH DESIGN SUPERVISOR 1,[id number], Status: Pen, Time: 8:30 AM EVENT EZEKIEL, Provider: HERIBERTO SINGH DESIGN SUPERVISOR 1,[id number], Status: Pen, Time: 8:30 AM -[facility]-[place] 320 DO Work Phone: Start: 08-14-2022 EVENT EZEKIEL, Provider : [facility] ION DESIGN SUPERVISOR 1,[id number], Status: Pen, Time: 10:00 AM EVENT EZEKIEL, Provider: [facility] [id number] DESIGN SUPERVISOR 1,[id number], Status: Pen, Time: 10:00 AM -[facility]-Jose 250 DO Work Phone: Start: 07-21-2022 NPVRFRL, Provider: Annalee Maza, Status: Pen, Time: 7:20 AM NPVRFRL, Provider: Annalee Maza, Status: Pen, Time: 7:20 AM -[facility]-Jose 250 DO Work Phone: Start: 07-10-2022 FUV, Provider: Melodie Alcaraz, Status: Pen, Time: 10:45 AM FUV, Provider: Melodie Alcaraz, Status: Pen, Time: 10:45 AM -[facility]-Jose 250 DO Work Phone: Start: 06-05-2022 [facility], Provider: Annalee Maza, Status: Pen, Time: 10:00 AM [facility], Provider: Annalee Maza, Status: Pen, Time: 10:00 AM [facility]-Jose 250 DO Work Phone: Start: 05-25-2022 Influenza vaccination [facility] Start: 05-18-2022 FUV, Provider: Melodie Alcaraz, Status: Pen, Time: 9:15 AM FUV, Provider: Melodie Alcaraz, Status: Pen, Time: 9:15 AM -[facility]-Tift 250 DO Work Phone: Start: 05-08-2022 End: 05-08-2022 Patient encounter procedure [facility] Start: 05-03-2022 [facility], Provider: María Elena Freire, Status: Pen, Time: 10:00 AM [facility], Provider: María Elena Freire, Status: Pen, Time: 10:00 AM [facility]-[place] 250 DO Work Phone: Start: 03-28-2022 EVENT EZEKIEL, Provider : HERIBERTO SINGH DESIGN SUPERVISOR 1,[id number], Status: Pen, Time: 8:00 AM EVENT EZEKIEL, Provider: HERIBERTO SINGH DESIGN SUPERVISOR 1,[id number], Status: Pen, Time: 8:00 AM [facility] 250 DO Work Phone: Start: 01-25-2022 End: 03-27-2022 Chronic hepatitis differentiation between hepatitis B and C virus panel - Serum or Plasma [facility] Work Phone: Comment on above: Expected: 01/25/2022 , Expires: 03/27/2022 Start: 01-25-2022 End: 03-27-2022 Complement C1 esterase inhibitor [Mass/volume] in Serum or Plasma [facility] Work Phone: Comment on above: Expected: 01/25/2022 , Expires: 03/27/2022 Start: 01-25-2022 End: 03-27-2022 Complement C2 [Mass/volume] in Serum or Plasma [facility] Work Phone: Comment on above: Expected: 01/25/2022 , Expires: 03/27/2022 Start: 09-24-2021 DEPRESSION ASSESSMENT DEPRESSION ASS ESSMENT [facility] Start: 06-16-2021 COVID-19 VACCINE (3 - Booster for Pfizer series) COVID-19 VACCINE (3 - Booster for Pfizer series) [facility] Start: 03-11-2021 COVID-19 VACCINE (3 - Booster for Pfizer series) COVID-19 VACCINE (3 - Booster for Pfizer series) [facility] Start: 02-11-2021 COVID-19 VACCINE (3 - Pfizer risk series) COVID-19 VACCINE (3 - Pfizer risk series) [facility] Start: 2020 SHINGRIX VACCINE (1 of 2) VANG GRIX VACCINE (1 of 2) [facility] Start: 2020 Urine microalbumin profile [facility] Start: 12-03-2019 Adult BMI Follow Up Plan Adult BMI Follow Up Plan [facility] Start: 12-03-2019 Adult BMI Screening Adult BMI Screen ing [facility] Start: 12-03-2019 Anxiety Screening Anxiety Screening [facility] Start: 12-03-2019 CHLAMYDIA SCREENING (1824) CHLAMYDIA SCREENING (1824) [facility] Start: 12-03-2019 Depression Screening Depression Scre ening [facility] Start: 12-03-2019 GC (GONORRHEA) SCREE NINI (18-24) GC (GONORRHEA) SCREENING (18-) [facility] Start: 12-03-2019 HEPATITIS C SCREENING HEPATITIS C SC REENING [facility] Start: 12-03-2019 HIV SCREENING HIV SCREENING [facility] Start: 12-03-2019 HIV screening HIV Screening [facility] Start: 12-03-2019 Screening for Chlamy taylor trachomatis Chlamydia Screening (18) [facility] Start: 2017 Meningococcal B Vacc ine: Consider Based On Risk (1 of 2 - Patient Seeks Protection) Meningococcal B Vaccine: Consider Based On Risk (1 of 2 - Patient Seeks Protection) [facility] Start: 12-03-2015 PEDS TO ADULT TRANSI TION ANNUAL ASSESSMENT PEDS TO ADULT TRANSITION ANNUAL ASSESSMENT [facility] Start: 2013 Adult depression screening assessment DEPRESSION SCREENING [facility] Start: 2013 PEDS TO ADULT TRANSI TION INITIAL DISCUSSION PEDS TO ADULT TRANSITION INITIAL DISCUSSION [facility] Start: 2013 Tobacco Screening Tobacco Screening [facility] Start: 2012 HPV VACCINE (1 - 2-d ose series) HPV VACCINE (1 - 2-dose series) [facility] Start: 12-03-2011 MENINGOCOCCAL B: 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 (1 of 2 - Risk Bexsero 2-dose series) MENINGOCOCCAL B: Consider based on risk (1 of 2 - Risk Bexsero 2-dose series) [facility] Start: 2010 HPV Vaccine (1 - 2-d ose series) HPV Vaccine (1 - 2-dose series) [facility] Start: 2010 HPV VACCINES (1 - 2- dose series) HPV VACCINES (1 - 2-dose series) [facility] Start: 2008 DTaP/Tdap/Td VACCINE S (1 - Tdap) DTaP/Tdap/Td VACCINES (1 - Tdap) [facility] Start: 12-03-2007 PNEUMOCOCCAL (1 - PCV) PNEUMOCOCCAL (1 - PCV) [facility] Start: 2002 MMR VACCINES (1 of 1 - Standard series) MMR VACCINES (1 of 1 - Standard series) [facility] Start: 2002 VARICELLA VACCINES ( 1 of 2 - 2-dose childhood series) VARICELLA VACCINES (1 of 2 - 2-dose childhood series) [facility] Start: 06-04-2002 COVID-19 Vaccine (#1) COVID-19 Vacci ne (#1) [facility] Start: 2001 HEPATITIS B (1 of 3 - 3-dose series) HEPATITIS B (1 of 3 - 3-dose series) [facility] Start: 2001 Hepatitis B Vaccine (1 of 3 - 3-dose series) Hepatitis B Vaccine (1 of 3 - 3-dose series) [facility] Start: 2001 HEPATITIS B VACCINES (1 of 3 - 3-dose series) HEPATITIS B VACCINES (1 of 3 - 3-dose series) [facility] Start: 2001 Screening for Chlamy taylor trachomatis Chlamydia Screening [facility] Bacteria identified in Urine by Culture Urine culture Microbiology Routine Missed menses Ordered: 05/23/2024 [facility] Comment on above: Ordered: 05/23/2024 CBC W Auto Different ial panel - Blood CBC and differential Lab Routine Missed menses Ordered: 05/23/2024 [facility] Comment on above: Ordered: 05/23/2024 CHLAMYDIA TRACHOMATI S (GENITO/STI) CHLAMYDIA TRACHOMATIS (GENITO/STI) Lab Routine STD exposure Ordered: 08/05/2024 [facility] Comment on above: Ordered: 08/05/2024 Cytology Cervical or vaginal smear or scraping study Pap Smear Pathology and Cytology Routine Well woman exam with routine gynecological exam Ordered: 08/05/2024 [facility] Comment on above: Ordered: 08/05/2024 Hemoglobin A1c/Hemoglobin.total in Blood Hemoglobin A1c Lab Routine Missed menses Ordered: 05/23/2024 [facility] Comment on above: Ordered: 05/23/2024 Hepatitis B virus ramirez rface Ag [Presence] in Serum or Plasma by Immunoassay Hepatitis B surface antigen Lab Routine Missed menses Ordered: 05/23/2024 [facility] Comment on above: Ordered: 05/23/2024 Hepatitis C virus Ab [Presence] in Serum or Plasma by Immunoassay Hepatitis C antibody Lab Routine Missed menses Ordered: 05/23/2024 [facility] Comment on above: Ordered: 05/23/2024 HIV-1/HIV-2 antigen/antibody combination immunoassay HIV-1 and HIV-2 antibodies Lab Routine Missed menses Ordered: 05/23/2024 [facility] Comment on above: Ordered: 05/23/2024 Neisseria gonorrhoea e DNA [Presence] in Unspecified specimen by PERFECTO with probe detection Neisseria gonorrhea DNA probe, direct Lab Routine STD exposure Ordered: 08/05/2024 [facility] Comment on above: Ordered: 08/05/2024 Patient Education [facility] Work Phone: Patient referral [facility] Work Phone: Reagin Ab [Presence] in Serum by RPR RPR Lab Routine Missed menses Ordered: 05/23/2024 [facility] Comment on above: Ordered: 05/23/2024 Rubella antibody, IgG Rubella an tibody, IgG Lab Routine Missed menses Ordered: 05/23/2024 [facility] Comment on above: Ordered: 05/23/2024 SURESWAB(R) ADVANCED VAGINITIS PLUS, TMA SURESWAB(R) ADVANCED VAGINITIS PLUS, TMA Pathology and Cytology Routine Vaginal discharge Ordered: 08/05/2024 [facility] Work Phone: Comment on above: Ordered: 08/05/2024 End: 08-04-2024 XR KNEE GENERAL 4V AP BOTH/PA BOTH/LAT/MERC RIGHT XR KNEE GENERAL 4V AP BOTH/PA BOTH/LAT/MERC RIGHT Radiology Routine Right knee pain, unspecified chronicity 1 Occurrences starting 07/06/2023 until 08/04/2024 [facility] Work Phone: Comment on above: 1 Occurrences starti ng 07/06/2023 until 08/04/[address] [facility] Immunizations Immunization Date Immunization Notes Care Provider Cheryl harden 07-24-2024 influenza, seasonal, injectable, preservative free Camilla TOLBERT Work Phone: [facility] Work Phone: 03-25-2024 tetanus toxoid, redu richar diphtheria toxoid, and acellular pertussis vaccine, adsorbed Camilla Garcia PA Work Phone: [facility] 07-05-2023 influenza virus vaccine, unspecified formulation Celeste Watson [facility] 07-05-2023 influenza, injectabl e, quadrivalent, preservative free Camilla TOLBERT Work Phone: [facility] 01-14-2021 Pfizer-BioNTech COVID-19 Vacc 30 MCG/0.3ML Intramuscular Suspension Ibis A Ymra Work Phone: [facility] Comment on above: Result Comment: 2023: TPVAL 12-24-2020 Pfizer-BioNTech COVID-19 Vacc 30 MCG/0.3ML Intramuscular Suspension Ibis A Myra Work Phone: [facility] Comment on above: Result Comment: 2023: TPVAL 12-11-2017 meningococcal polysaccharide (groups A, C, Y and W-135) diphtheria toxoid conjugate vaccine (MCV4P) Christina Portia Other [place] Other 12-11-2017 meningococcal ACWY vaccine, unspecified formulation Celeste Watson [facility] 11-06-2014 human papilloma viru s vaccine, quadrivalent Christina Portia Other [facility] Other 11-06-2014 HPV, unspecified formulation Ibis A Myra Work Phone: [facility] 250 DO Work Phone: 06-26-2014 HPV, unspecified formulation Celeste Rinkes [facility] 06-26-2014 human papilloma viru s vaccine, quadrivalent Christina Portia Other [facility] [employer] Other 04-20-2014 human papilloma viru s vaccine, quadrivalent Christina Potria Other [facility] [employer] Other 04-20-2014 meningococcal polysaccharide (groups A, C, Y and W-135) diphtheria toxoid conjugate vaccine (MCV4P) Christina Portia Other [facility] [employer] Other 04-20-2014 tetanus toxoid, redu richar diphtheria toxoid, and acellular pertussis vaccine, adsorbed Christina Portia Other [facility] 04-20-2014 HPV, unspecified formulation Celeste Rinradha [facility] 04-20-2014 meningococcal ACWY vaccine, unspecified formulation Celeste Rinkes [facility] 12-27-2006 diphtheria, tetanus toxoids and acellular pertussis vaccine, unspecified formulation Ibis A Myra Work Phone: -[facility] 250 DO Work Phone: 12-27-2006 DTaP, unspecified formulation Celeste Rinkes [facility] 12-27-2006 measles, mumps, rubella, and varicella virus vaccine Ibis A Myra Work Phone: [facility] 12-27-2006 poliovirus vaccine, inactivated Ibis A Myra Work Phone: [facility] 250 DO Work Phone: 12-27-2006 poliovirus vaccine, unspecified formulation Celeste Rinkes [facility] 02-06-2003 diphtheria, tetanus toxoids and acellular pertussis vaccine, unspecified formulation Ibis A Myra Work Phone: [facility] 250 DO Work Phone: 02-06-2003 DTaP, unspecified formulation [facility] 02-06-2003 haemophilus influenz ae type b vaccine, conjugate unspecified formulation Ibis A Myra Work Phone: [facility] 250 DO Work Phone: 02-06-2003 Hib, unspecified formulation [facility] 02-06-2003 measles, mumps and rubella virus vaccine Ibis A Myra Work Phone: [facility] 02-06-2003 varicella virus vaccine Susan ica A Myra Work Phone: [facility] 07-02-2002 diphtheria, tetanus toxoids and acellular pertussis vaccine, unspecified formulation Ibis A Myra Work Phone: [facility] 250 DO Work Phone: 07-02-2002 DTaP, unspecified formulation [facility] 07-02-2002 haemophilus influenz ae type b vaccine, conjugate unspecified formulation Ibis A Myra Work Phone: [facility] 250 DO Work Phone: 07-02-2002 Hib, unspecified formulation Celeste Rinkes [facility] 07-02-2002 pneumococcal conjuga te vaccine, 7 valent Ibis A Myra Work Phone: [place] [address] DO Work Phone: 07-02-2002 poliovirus vaccine, inactivated Ibis A Myra Work Phone: [place] [address] DO Work Phone: 07-02-2002 poliovirus vaccine, unspecified formulation [facility] 05-19-2002 diphtheria, tetanus toxoids and acellular pertussis vaccine, unspecified formulation Ibis A Myra Work Phone: [place] [address] DO Work Phone: 05-19-2002 DTaP, unspecified formulation [facility] 05-19-2002 haemophilus influenz ae type b conjugate and Hepatitis B vaccine Ibis A Myra Work Phone: [place] [address] DO Work Phone: 05-19-2002 pneumococcal conjuga te vaccine, 7 valent Ibis A Myra Work Phone: [place] [address] DO Work Phone: 05-19-2002 poliovirus vaccine, inactivated Ibis A Myra Work Phone: [place] [address] DO Work Phone: 05-19-2002 poliovirus vaccine, unspecified formulation Celeste Rinkes [facility] 03-05-2002 diphtheria, tetanus toxoids and acellular pertussis vaccine, unspecified formulation Ibis A Myra Work Phone: [facility] 250 DO Work Phone: 03-05-2002 DTaP, unspecified formulation Celeste Watson [facility] 03-05-2002 haemophilus influenz ae type b conjugate and Hepatitis B vaccine Ibis A Myra Work Phone: [facility] Work Phone: 03-05-2002 poliovirus vaccine, inactivated Ibis A Myra Work Phone: [facility] 250 DO Work Phone: 03-05-2002 poliovirus vaccine, unspecified formulation Celeste Watson [facility] 2001 hepatitis B vaccine, pediatric or pediatric/adolescent dosage Ibis A Myra Work Phone: [facility] Payers Date Payer Category Payer Self-pay [id number] 2023 Unknown [id number] 2022 Medicaid HMO [employer] [id number] 2021 Private Health Insurance [id number]. [id number] 2021 Private Health Insurance [id number] 2.16.840.1.031100.19 2020 Private Health Insurance [facility] CHOICE PLUS [id number] 2020-Present [phone] [address] [place] [address] HMO [id number] [id number]. [id number] 2020 Unknown [id number] 2017 Managed Care Other (unspecified) [id number]. [id number] 2013 Medicaid [employer] [id number] 2013-Present [phone] [address] [place] [address] Medicaid [id number]. [id number] 2013 Medicaid [id number]. 1.13.159.2. [id number] 2007 Unknown [id number] 2.16.840.1.911566.19 2001 Unknown [id number] 2.16.840.1.924277.3.579.2. 1068 2001 Unknown [id number] 2.16.840.1.684747.3.579.2. 594 2001 Unknown [id number] 2.16.840.1.241075.3.579.2. 594 2001 Unknown [id number] 2.16.840.1.809112.3.579.2. 356 2001 Unknown [id number] 2.16.840.1.155745.3.579.2. 356 2001 Unknown [id number] 2.16.840.1.630440.3.579.2. 356 2001 Unknown [id number] 2.16.840.1.261419.3.579.2. 356 2001 Unknown [id number] 2.16.840.1.466545.3.579.2. 356 2001 Unknown [id number] 2.16.840.1.943603.3.579.2. 356 2001 Unknown [id number] 2.16.840.1.107548.3.579.2. 356 2001 Unknown [id number] 2.16.840.1.371546.3.579.2. 356 2001 Unknown [id number] 2.16.840.1.126310.3.579.2. 727 2001 Unknown [id number] 2.16.840.1.593973.3.579.2. 727 2001 Unknown [id number] 2.16.840.1.411023.3.579.2. 727 2001 Unknown [id number] 2.16.840.1.037783.3.579.2. 727 2001 Unknown [id number] 2.16.840.1.197238.3.579.2. 727 2001 Unknown [id number] 2.16.840.1.256934.3.579.2. 1259 2001 Unknown [id number] 2.16.840.1.137788.3.579.2. 1259 2001 Unknown [id number] 2.16.840.1.826339.3.579.2. 1259 2001 Unknown [id number] 2.16.840.1.907865.3.579.2. 1259 2001 Unknown [id number] 2.16.840.1.527687.3.579.2. 1259 2001 Unknown [id number] 2.16.840.1.815169.3.579.2. 1259 2001 Unknown [id number] 2.16.840.1.513753.3.579.2. 1259 2001 Unknown [id number] 2.16.840.1.973736.3.579.2. 1259 2001 Unknown [id number] 2.16.840.1.302393.3.579.2. 1259 2001 Unknown [id number] 2.16.840.1.522034.3.579.2. 1259 2001 Unknown [id number] 2.16.840.1.917164.3.579.2. 1259 2001 Unknown [id number] 2.16.840.1.154480.3.579.2. 9 2001 Unknown [id number] 2.16.840.1.488840.3.579.2. 9 2001 Unknown [id number] 2.16840.1.172467.3.579.2. 9 2001 Unknown [id number] 2.16840.1.863962.3.579.2. 9 2001 Unknown [id number] 2.16.840.1.637229.3.579.2. 1286 2001 Unknown [id number] 2.16.840.1.153904.3.579.2. 1286 2001 Unknown [id number] 2.16840.1.196308.3.579.2. 1286 2001 Unknown [id number] 2.16840.1.779173.3.579.2. 1286 Unknown Unknown [place] [employer]/BS [id number] Unknown [id number] 2.16.840.1.886077.3.579.2. 531 Social History Date Type Detail Facility Tobacco smoking stat [facility] Tobacco smoking consumption unknown [facility] Work Phone: Start: 2001 Sex Assigned At Not on file [facility] Start: 01-15-2022 End: 07-31-2022 Exposure to SARS-CoV-2 (event) Not sure [facility] Start: 12-28-2022 End: 02-25-2024 Sex Assigned At [facility] Start: 12-28-2022 End: 02-25-2024 No alcohol use No alcohol use [facility] Comment on above: very rarely soda; Start: 09-20-2019 End: 02-20-2023 Tobacco smoking status NHIS Never smoked tobacco (finding) [facility] Start: 2001 Sex Assigned At Female F [facility] Start: 07-31-2022 End: 02-20-2023 Tobacco use and exposure Smokeless tobacco non-user [facility] Adult Depression Screening Assessment 0 [facility] Start: 09-29-2023 Gender identity Identifies as female gender (finding) [facility] Start: 06-04-2024 End: 09-18-2024 Alcoholic beverage intake Ex-drinker (finding) [facility] Do you belong to any clubs or organizations such as anglican groups, unions, fraternal or athletic groups, or [...] Only a little [facility] (I/We) worried wheshola er (my/our) food would run out before (I/we) got money to buy more. Never true [facility] Start: 12-08-2023 Alcohol Comment socially, Caff eine intake: none [facility] Start: 04-05-2024 [facility] Start: 04-27-2015 Sex Female (finding) [facility] NEGATED: Highlighted rowStart: NINF History of tobacco use Passive smoker [facility] Medical Equipment Procedure Code Equipment Code Equipment Origin al Text Equipment Identifier Dates 1 strip by In Vi tro route Daily Use in the morning prior to breakfast, 1 hour after each meal for a total of 4times daily. [id number] Start: 09-18-2024 End: 10-18-2024 1 each by In Vit ro route Daily Use to check FSBS four times daily [id number] Start: 09-18-2024 End: 10-18-2024 Clinical Notes 09-24-2007 to 10-15-2024 Camilla Yosvany, [facility] - 10/15/2024 3:30 PM ESTSdebbi Mendes, [facility] - 10/02/2024 11:00 AM ESTTelephone Encounter - Pilar Alonso, [facility] - 09/25/2024 12:42 PM Teresa Bar, [facility] - 09/18/2024 10:30 AM EST Note Date [...] nursing note reviewed. Exam conducted with a sales record clerk present. Vitals: Estimated body mass index is [...] Osei Malik DO documented in this encounter [facility] 10-02-2024 History of Present illness Narrative Reason [...] Do not swallow. Blood Glucose Monitoring Suppl (D-[employer] Glucometer) w/Device kit 1 kit, Does not [...] nursing note reviewed. Exam conducted with a sales record clerk present. Vitals: Estimated body mass index is [...] Osei Malik DO documented in this encounter [facility] 09-25-2024 Telephone encounter Note Patient called the [...] today. Patient was advised to report to [facility] for check and she was asking if she could go to [facility] as that's closer she was advised we prefer [place] but she can go where she is comfortable. Patient states will go to [facility] as she is at work and that's closer right now. Patient advised note would be in chart. [facility] Work Phone: 09-25-2024 Miscellaneous Notes Patient called [...] today. Patient was advised to report to [facility] for check and she was asking if she could go to [facility] as that's closer she was advised we prefer [place] but she can go where she is comfortable. Patient states will go to [facility] as she is at work and that's closer right now. Patient advised note would be in chart. documented in this encounter [facility] 09-18-2024 History of Present illness Narrative Reason [...] nursing note reviewed. Exam conducted with a sales record clerk present. Vitals: Estimated body mass index is [...] Osei Malik DO documented in this encounter [facility] 09-03-2024 History of Present illness Narrative Reason [...] Osei Malik DO documented in this encounter [facility] 09-02-2024 History of Present illness Narrative Images from the original note were not included. [facility] Follow-Up VIRTUAL VISIT This is a virtual visit using [employer] Video Visit. It required patient-provider interaction for [...] increased Exercise Shared medical appointment with Dr. Deni Meehan spent a total of 20 minutes on the date of the service which included preparing to see the patient, [id number] patient care, completing clinical documentation, obtaining and/or reviewing separately obtained history, performing a medically appropriate examination, and counseling and educating the patient/family/caregiver. Jyoti Dickey PA-C Neuromuscular Medicine [address] [place] [address]. [phone] Appointment: [phone] During our virtual visit encounter we discussed [...] bright light?: Mild documented in this encounter [facility] 09-02-2024 Note HNO ID: [id number] Author: JYOTI DICKEY PA-C Service: ? Author Type: Physician Er Rn Type: Progress Notes Filed: 09/02/2024 11:21 Note Text: [facility] Follow-Up VIRTUAL VISIT This is a virtual visit using [employer] Video Visit. It required patient-provider interaction for [...] female here t (more content not included)... [facility] 08-29-2024 Miscellaneous Notes Machine Tool Rebuilder spoke to patient . Patient has complains of SOB which she states is mainly at night time. She has recently seen her PCP who stated that her lungs are tight/restricted and prescribed her an inhaler. Today the patient is feeling better and states that when she checked her SPO2 today it was at 96%. Machine Tool Rebuilder advised patient to monitor and if her O2 Sat falls under 95% and/or the inhaler does not help to present to her nearest ER. Patient verbalized understanding. documented in this encounter [employer] 08-29-2024 Telephone encounter Note Machine Tool Rebuilder spoke to patient . Patient has complains of SOB which she states is mainly at night time. She has recently seen her PCP who stated that her lungs are tight/restricted and prescribed her an inhaler. Today the patient is feeling better and states that when she checked her SPO2 today it was at 96%. Machine Tool Rebuilder advised patient to monitor and if her O2 Sat falls under 95% and/or the inhaler does not help to present to her nearest ER. Patient verbalized understanding. [facility] 08-27-2024 Telephone encounter Note Alternative inhaler requested by pharmacy. [facility] 08-27-2024 Miscellaneous Notes Alternative inhaler requested by pharmacy. documented in this encounter [facility] 08-27-2024 History of Present illness Narrative Images from the original note were not included. Subjective Patient ID: Madyson Mai is a 23 y.o. female who presents for asthma. Madyson is present today for evaluation of asthma. Admits she is 22 weeks with twins, she is not sure if that is what is flaring up her asthma. She has not see her sports nutritionist in a couple of years and her [...] visit: Mild intermittent asthma with acute exacerbation ([facility]) - fluticasone (Flovent HFA) 110 MCG/ACT inhaler; [...] fail to improve. documented in this encounter [facility] 08-13-2024 History of Present illness Narrative Headache/epigastric [...] no Have you been seen here at [facility] in a previous ? no Recent ER visits or hospitalizations? no Bring blood sugar log or meter with you today? (Please bring them with you for every visit at [facility]) n/a Flu vaccine (Jul-November)? Yes Any [...] Resource Strain: Low Risk (02/25/2024) Received from [facility] Overall Financial Resource Strain (CARDIA) Difficulty of Paying Living Expenses: Not very hard Food Insecurity: No Food Insecurity (08/13/2024) Hunger Screening Food Insecurity - Worry: Never True Food Insecurity - Inability: Never True Transportation Needs: No Transportation Needs (02/25/2024) Received from [facility] PRAPARE - Transportation Lack of Transportation (Medical): No Lack of Transportation (Non-Medical): No Physical Activity: Inactive (02/25/2024) Received from [facility] Exercise Vital Sign Days of Exercise per Week: 0 days Minutes of Exercise per Session: 0 min Stress: No Stress Concern Present (02/25/2024) Received from [facility] [place] [employer] [place] of Occupational Health - Occupational Stress Questionnaire Feeling of Stress : Only a little Social Connections: Moderately Integrated (02/25/2024) Received from [facility] Social Connection and Isolation Panel [NHANES] Frequency of Communication with Friends and Family: More than three times a week Frequency of Social Gatherings with Friends and Family: Three times a week Attends Adventist Services: More than 4 times per year Active Member of Clubs or Organizations: No Attends Club or Organization Meetings: Patient declined Marital Status: Interpersonal Safety: Not on file Housing Instability: Low Risk (02/25/2024) Received from [facility] Housing Stability Vital Sign Unable to Pay [...] complications, or both, related to use. The [place] [employer] and the [...] tachycardia syndrome) She follows with Neurology at [facility]. Last visit was on 07/02/2024. External records reviewed. 07/02/2024 - General Neurology, Joie Seaman APRN.MENTAL HEALTH ORDERLY ASSESSMENT Madyson Mai is a 23 year [...] continue with routine care in your office [facility] [place], the CDC, and other organizations representing maternal and public health professionals recommend that , , and lactating people and those considering receive the COVID-19 vaccination. Vaccination is the best method to reduce maternal and complications of SARS-CoV-2 infection. This document was created with [employer] technology. Though I make every effort to review the dictation as it is transcribed, on occasion the spoken word can be misinterpreted by the technology leading to inappropriate words, phrases, or sentences. This note is addressed to the requesting provider as a consultation for clinical guidance. Specific medical abbreviations are occasionally used and those are generally approved by the [place]?Board of?Obstetrics and?Gynecology?as well as?Loretta s abbreviations. The above plan of care was based solely on the diagnoses for which a consultation was requested. ?More frequent testing may be indicated based on her other medical/obstetrical conditions. The management of other or medical conditions is beyond the scope of requested consultation and will continue to be followed by the primary territory sales professional or primary care provider. Thank you for [...] procedures Referring and communicating with other health home care physical therapist (not separately reported) Documenting clinical information in the electronic or other health record Independently interpreting results (not separately reported) and communicating results to the patient/family/caregiver Care coordination (not separately reported) documented in this encounter [facility] 08-06-2024 Telephone encounter Note Can we have her schedule for a follow up appointment. Can be virtual or in person. Thanks, AM [facility] Work Phone: 08-06-2024 Miscellaneous Notes Can we have her schedule for a follow up appointment. Can be virtual or in person. Thanks, AM documented in this encounter [facility] 08-05-2024 History of Present illness Narrative Reason [...] nursing note reviewed. Exam conducted with a sales record clerk present. Vitals: Estimated body mass index is [...] of: TOMASZ Rizvi documented in this encounter [facility] 07-03-2024 History of Present illness Narrative Reason [...] current . Patient is being referred to [facility] for her twin , gave her information about who she will be seeing there. No orders of the defined types were placed in this encounter. Follow Up: Patient is to return to office in 4 weeks for routine OB appointment. Documented by Ibis Sandoval on behalf of: TOMASZ Rizvi documented in this encounter [facility] 07-02-2024 History of Present illness Narrative Images from the original note were not included. [facility] for General Neurology Follow Up / Established [...] assisted with the encounter were: Madyson Seaman APRN.MENTAL HEALTH ORDERLY Chief Complaint/Issues: Madyson Mai is a 23 year old female seen in the [facility] for General Neurology for: POTS Most Recent [...] Plan 07/02/2024 - General Neurology, Joie Seaman APRN.MENTAL HEALTH ORDERLY ASSESSMENT Madyson Mai is a 23 year [...] which included preparing to see the patient, [id number] patient care, completing clinical documentation, obtaining and/or reviewing separately obtained history, performing a medically appropriate examination, counseling and educating the patient/family/caregiver, and ordering medications, tests, or procedures. Joie Seaman APRN.MENTAL HEALTH ORDERLY 06/28/2024 PROMIS [facility] Physical Health Summary [...] and warrants attention documented in this encounter [facility] 07-02-2024 Note HNO ID: [id number] Author: JOIE SEAMAN APRN.CNP Service: ? Author Type: Nurse Practitioner Type: Progress Notes Filed: 07/02/2024 19:57 Note Text: [facility] General Neurology Follow Up / Established Virtual [...] were: Madyson Seaman APRN.CNP Chief Complaint/Issues: Madyson Pereiraleilani is a 23 year old female seen in the [facility] for General Neurology for: POTS Most Recent [...] Plan 07/02/2024 - General Neurology, Joie Seaman APRN.MENTAL HEALTH ORDERLY ASSESSMENT Madyson Mai is a 23 year [...] Mostly Moderately S (more content not included)... [facility] 06-04-2024 History of Present illness Narrative Reason [...] nursing note reviewed. Exam conducted with a sales record clerk present. Vitals: Estimated body mass index is [...] possibly adding medication. Pt being referred to [facility] for TWIN gestation. Expectations throughout regarding labs, ultrasounds, and appointments have been discussed with the patient in detail. It was reiterated that the patient is to drink 6-8 glasses of water a day, eat 6 small meals a day, do not consume raw or undercooked meat, and stay away from [facility]. Patient has been consulted regarding any further do's and don'ts of . Patient voiced understanding and all questions and concerns were answered. Orders Placed This Encounter Procedures POCT urinalysis dipstick manually resulted Follow Up: Patient is to return in 4 weeks for routine OB appointment. Documented by Camilla Bar LPN on behalf of: Osei Malik DO documented in this encounter [facility] 05-23-2024 History of Present illness Narrative Reason for Appointment: Patient ID: Madyson aMi is a 23 y.o. female who presents [...] Type and screen ABO/Rh Documented by Annika Sliva LPN on behalf of: * No providers found * documented in this encounter [facility] 05-20-2024 History of Present illness Narrative Images [...] 1 puff in the evening. Vit-Fe Fumarate-FA (M-Zak Plus) 27-1 MG tablet [...] topical cream for less systemic absorption. Consider career coach. Can provide pt with referral to PT if symptoms do not improve with the above. X-rays not yet indicated, especially as pt is . Follow up if symptoms worsen or fail to improve. documented in this encounter [facility] 03-20-2024 History of Present illness Narrative Images from the original note were not included. [facility] Neuromuscular Medicine Follow-Up VIRTUAL VISIT This is a virtual visit using [employer] Video Visit. It required patient-provider interaction for [...] which included preparing to see the patient, [id number] patient care, completing clinical documentation, obtaining and/or reviewing separately obtained history, performing a medically appropriate examination, counseling and educating the patient/family/caregiver, and ordering medications, tests, or procedures. Jyoti Dickey PA-C Neuromuscular Medicine [address] [place]. [address] Appointment: [phone] During our virtual visit encounter we discussed [...] problem? : Mild documented in this encounter [facility] 03-20-2024 Note HNO ID: [id number] Author: JYOTI DICKEY PA-C Service: ? Author Type: Physician Er Rn Type: Progress Notes Filed: 03/20/2024 15:17 Note Text: [facility] for Neuromuscular Medicine Follow-Up VIRTUAL VISIT This is a virtual visit using [employer] Video Visit. It required patient-provider interaction for [...] the mean hea (more content not included)... [facility] 11-30-2023 History of Present illness Narrative Images from the original note were not included. [facility] for Neuromuscular Medicine New Patient Evaluation Madyson [...] Patient presents today for evaluation of POTS. Cristian2020 had knee surgery and then passed out [...] experienced LOC while walking up the stairs. [place] prodromal symptoms including lightheadedness and tunnel vision. [...] Plantarflexion 5/5 5/5 Movement/Coordination Finger-to- nose-finger and okuz-uh-gqij intact bilaterally. No evidence of ataxia arms. [...] which included preparing to see the patient, lnfg-bd-qewr patient care, completing clinical documentation, obtaining and/or [...] on 11/30/23. Jyoti Dickey PA-C Neuromuscular Medicine [address] [place] [address]. [id number] Appointment: [phone] 1. This office note has been dictated [...] problem? : Moderate documented in this encounter [facility] 11-30-2023 Note HNO ID: [id number] Author: JYOTI DICKEY PA-C Service: ? Author Type: Physician Er Rn Type: Progress Notes Filed: 11/30/2023 11:14 Note Text: [facility] for Neuromuscular Medicine New Patient Evaluation Madyson Mai is a 22 year old right handed female. Patient presents with: New Patient Consult Madyson Mai is referred in consultation by Aurora Santiago PA-C for POTS. Final recommendations will be communicated to the requesting physician by way of a letter. H: - obesity Neurology, Aurora Santiago PA-C 10/10/2023: [...] experienced LOC while walking up the stairs. [place] prodromal symptoms including lightheadedness and tunnel vision. [...] breathing: - Tac (more content not included)... [facility] 11-12-2023 Note HNO ID: [id number] Author: ?, ?, ? Service: ? Author [...] Care Visit completed when applicable. Gauri Harris [facility] 11-12-2023 History of Present illness Narrative UNIVERSAL [...] applicable. Gauri Harris documented in this encounter [facility] 10-10-2023 Note HNO ID: [id number] Author: AURORA SANTIAGO PA-C Service: ? Author Type: Physician Er Rn Type: Progress Notes Filed: 10/10/2023 16:33 Note Text: [facility] Neuromuscular Medicine New Patient Evaluation [...] No current facility-adminis (more content not included)... [facility] 10-10-2023 Note HNO ID: [id number] Author: ANGELIQUE RUTH MD Service: ? Author [...] VE Couplets or VE Triplets were present. [facility] 07-20-2023 Telephone encounter Note Call to Madyson to discuss referral to dysautonomia clinic. Informed her that we are unable to provide dysautonomia evaluation at this time. Provided number for [facility] scheduling service. No other needs at this time. [facility] 07-20-2023 Miscellaneous Notes Call to Madyson to discuss referral to dysautonomia clinic. Informed her that we are unable to provide dysautonomia evaluation at this time. Provided number for [facility] scheduling service. No other needs at this time. documented in this encounter [facility] 07-10-2023 Note HNO ID: [id number] Author: Jose Armando Grey, DO Service: ? Author Type: Physician Type: Progress Notes Filed: 07/10/2023 10:08 AM Note Text: [facility] Office Visit Documentation Note [facility] Sports Medicine Orthopaedic and Rheumatologic [place] HISTORY OF PRESENT ILLNESS (HPI) CHIEF COMPLAINT / REASON FOR VISIT SERVICE DATE: July 10, 2023 PCP: No primary care provider on file. Madyson Schmid is here today at request of Dr. Jose Armando Schmid specifically for consultation of my opinion in regards to the chief complaint listed below. Correspondence will be shared today via the [employer] electronic health record or through regular mail, [...] need to consider PT or personal lines agent. Reaction knee brace Consider [place] toradol, did discuss orthobiologics Follow up: Films prior to visit: Written instructions (see patient instructions) and verbal health education given to patient. Patient verbalizes understanding and agrees with the treatment plan. Jose Armando Grey D.O. [facility] Orthopaedic and Rheumatologic Digital Coordinator, [facility] Program Team Physician, [facility] Baseball [employer] Consulting Physician, [place] Martin Nagel, Clinical Rehabilitation Liaison [phone] [facility] 07-10-2023 History of Present illness Narrative Images from the original note were not included. [facility] Office Visit Documentation Note [facility] Sports Medicine Orthopaedic and Rheumatologic [place] HISTORY OF PRESENT ILLNESS (HPI) CHIEF COMPLAINT / REASON FOR VISIT SERVICE DATE: July 10, 2023 PCP: No primary care provider on file. Madyson Schmid is here today at request of Dr. Jose Armando Schmid specifically for consultation of my opinion in regards to the chief complaint listed below. Correspondence will be shared today via the [employer] electronic health record or through regular mail, [...] need to consider PT or personal lines agent. Reaction knee brace Consider [place] toradol, did discuss orthobiologics Follow up: Films prior to visit: Written instructions (see patient instructions) and verbal health education given to patient. Patient verbalizes understanding and agrees with the treatment plan. Jose Armando Grey D.O. [facility] Orthopaedic and Rheumatologic Digital Coordinator, [facility] [employer] Program Team Physician, [facility] [employer] Consulting Physician, [place] Martin Nagel, Clinical Rehabilitation Liaison [phone] documented in this encounter [facility] 12-28-2022 History of Present illness Narrative [...] surgery Evaluated by DR Case ([facility]) in 2020 no rheum issue found and [...] Swollen Glands: No documented in this encounter [facility] 07-31-2022 History of Present illness Narrative [...] surgery Evaluated by DR Case ([facility]) in 2020 no rheum issue found and [...] Swollen Glands: No documented in this encounter [facility] 07-10-2022 History of Present illness Narrative [...] she did get a second opinion in [place], and no change in medication was suggested [...] with paucity of objective findings on the [id number]. Abnormal tilt table test, with a combination [...] I will defer that to Dr. Maza -[facility] 250 DO Work Phone: 06-12-2022 Note Pre-procedure Verifi cation and Time Out: Pre-Procedure Verification and Time Out: Procedure Locationbedside PRE-PROCEDURE Verificationcompleted TIME OUT - Final Verificationcompleted immediately prior to procedure start General Information: Anesthesia Critical Care: Non-Anesthesia Date/Time of Procedure: 12-Jun-2022 Post-Procedure Diagnosis: syncope Procedure Name: tilt table test Findings: grossly normal anatomy Procedure performed by: az Er Rn(s): none Estimated Blood Loss (mL): none Specimen: [...] Last Updated: 14-Jun-2022 11:56 by Annalee Maza) [facility] 03-24-2022 History of Present illness Narrative [...] while walking to the bathroom.She will see sports nutritionist in the near future, she had her pulmonary function test which I reviewed, there is concern for chronic asthma, but no reactive airway disease.She has 3 dogs that she had, and 1 cat at home.She is not orthostatic. She is feeling palpitations quite a bit.Results of the pulmonary function test and a Micah of [place] was reviewed. Also reviewed stress test and [...] we will have to schedule at [facility], and patient is okay with driving.4. Lifestyle modifications such as regular aerobic activity as tolerated, excessive sodium intake, and possibly low-dose beta-blockers can be tried. If her breathing gets worse on the beta-blockers, then she should stop it. We will decide after seen by pulmonary, and also after the results of culpable test are available. -[facility]-Jose 250 DO Work Phone: 03-24-2022 History of [...] while walking to the bathroom.She will see sports nutritionist in the near future, she had her pulmonary function test which I reviewed, there is concern for chronic asthma, but no reactive airway disease.She has 3 dogs that she had, and 1 cat at home.She is not orthostatic. She is feeling palpitations quite a bit.Results of the pulmonary function test and a Micah [employer] was reviewed. Also reviewed stress test and [...] we will have to schedule at [facility], and patient is okay with driving.4. Lifestyle modifications such as regular aerobic activity as tolerated, excessive sodium intake, and possibly low-dose beta-blockers can be tried. If her breathing gets worse on the beta-blockers, then she should stop it. We will decide after seen by pulmonary, and also after the results of culpable test are available. -[facility] [employer] 250 DO Work Phone: 02-02-2022 Miscellaneous Notes [...] P Mathai, MD documented in this encounter [facility] 01-25-2022 History of Present illness Narrative [...] February Evaluated by DR Case ([facility]) in 2020 no rheum issue found and [...] February Evaluated by DR Case ([facility]) in 2020 no rheum issue found and [...] any joints noted on exam today Discussed [facility] patient as follows- Regarding acute onset of [...] Irvin Hanna MD documented in this encounter [facility] 01-10-2022 Evaluation note Encounter Date Diagnosis Assessment Notes Dec, Skin rash (ICD-10 - R21) Dec, Other 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 [facility] 01-17-2022 Evaluation note* Encounter Date Diagnosis [...] day as needed for pain and swelling. [facility] 07-01-2021 History of Present illness Narrative* [...] heart murmur and has been transferred to [facility] * There is no family [...] needed, treatment options, risks, benefits, and imponderables. [place] [employer] lifestyle changes and behavioral modification discussed. All questions answered in detail. Counseling over 50% visit regarding above. Patientappreciative of care. * At the end the office visit, she did report that she will be seeing an scalp specialist in [place]. We did discuss that she could hold [...] errors as software dictation application being used. -[facility]-[place] 320 DO Work Phone: [phone]) 464-907708-25-2020 History of Present illness Narrative* She is [...] exposed to secondhand smoke from her mother. -[facility]-Jose 250 DO Work Phone: [phone]) 802-545807-09-2020 History of Present illness Narrative* Patient is [...] twin brother had to be taken to [facility], and has history of heart murmur. [...] arise, * Sincerely, * Melodie alcaraz MD [facility] Work Phone: 1(398) 324-263707-01-2020 History of Present illness Narrative* Patient is [...] [facility], and has history of heart murmur. [...] arise, * Sincerely, * Melodie alcaraz MD [facility]-Jose Cheek DO Work Phone: [phone]) [phone] History of Present illness Narrative* Patient is [...] [facility], and has history of heart murmur. [...] arise, * Sincerely, * Melodie alcaraz MD [facility] [employer] DO Work Phone: 1(385) 709-487401-01-2008 History general Narrative - Reported* Type Description Date Medical History general health good Surgical History tonsillectomy and adenoidectomy 09/2007 [facility] 01-01-2008 History general Narrative - Reported* Type Description Date Medical History general health good Surgical History tonsillectomy and adenoidectomy 09/2007 Surgical History right knee cleaned up scar tiss ue 2020 [facility] Other Chiel complaint Narrative - ReportedMADYSON SCHMID is being seen for a cardiovascular evaluation of abnormal test(s) results and dyspnea.[facility] [employer] DO Work Phone: Chie[place] complaint Narrative - ReportedMADYSON SCHMID is being seen for a cardiovascular evaluation of abnormal test(s) results and dyspnea.[facility] Work Phone: Evaluation + Plan note No data available for this section [facility] Pain and swelling of knee, right- Primary Joint stiffness Stiffness of joint, not elsewhere classified, unspecified site documented in this encounter [facility] HospitalEvaluation noteNo assessment information availableFort [facility] Hospital Work Phone: Evaluation note* Diagnosis Pain and swelling of knee, right- Primary Joint stiffness Stiffness of joint, not elsewhere classified, unspecified site Inflammatory arthritis Unspecified inflammatory polyarthropathy [facility] Pain and swelling of knee, right- Primary Joint stiffness Stiffness of joint, not elsewhere classified, unspecified site [facility] Diagnosis Right knee pain, unspecified chronicity- Primary [facility]* Diagnosis Chronic pain of right knee- Primary Tendinopathy of gluteal region Unspecified disorder of synovium, tendon, and bursa documented [facility] Diagnosis Orthostatic lightheadedness- Primary Dizziness and giddiness documented [facility]* Diagnosis POTS (postural orthostatic tachycardia syndrome)- Primary Tachycardia, unspecified [facility] Diagnosis POTS (postural orthostatic tachycardia syndrome)- Primary Tachycardia, unspecified [facility]* Diagnosis POTS (postural orthostatic tachycardia syndrome)- Primary Tachycardia, unspecified Near syncope Syncope and collapse [facility]* Diagnosis Second trimester state, incidental 14 weeks gestation of [facility] Thumb pain, right- Primary De [...] Leg cramping Heartburn [facility] Diagnosis Dichorionic diamniotic twin in second trimester- Primary POTS (postural orthostatic tachycardia syndrome) Unspecified tachycardia Asthma during 20 weeks gestation of [facility] Diagnosis Dichorionic diamniotic twin in second trimester- Primary POTS (postural orthostatic tachycardia syndrome) Unspecified tachycardia Asthma during 20 weeks gestation of documented in this encounter [facility]* Diagnosis Thumb pain, right- Primary [...] without complication (CMS/HCC) [facility] Diagnosis POTS (postural orthostatic tachycardia syndrome)- Primary Tachycardia, unspecified 23 weeks gestation of state, incidental [facility] Diagnosis Thumb pain, right- Primary De Quervain's disease (tenosynovitis) Radial styloid tenosynovitis PCOS (polycystic ovarian syndrome) Polycystic ovaries POTS (postural orthostatic tachycardia syndrome) Unspecified tachycardia Tension headache- Primary Encounter for immunization POTS (postural orthostatic tachycardia syndrome) Unspecified tachycardia Well adult exam Routine general medical examination at a [facility] Dichorionic diamniotic twin in second [...] exam Routine general medical examination at a [facility] 25 weeks gestation of Second [...] heart murmur and had been transferred to [facility] * There is no change [...] patient that she saw Dr. Muñiz at [facility] for second opinion regarding neurally mediated syncope and near syncope. He agreed with evaluation and management and patient opted to follow-up here at [facility] in [place]. * Zio patch August 2022. All rhythms [...] needed, treatment options, risks, benefits, and imponderables. [employer] lifestyle changes and behavioral modification discussed. All questions answered in detail. Counseling over 50% visit regarding above. Patient appreciative of care. * Grammar * Please excuse grammatical or dictation errors as software dictation application being used. -[facility] 320 DO Work Phone: History of Present illness Narrative* The patient states she has been generally stable since the last visit. * Symptoms: denies chest pain at rest, denies exertional chest pain, denies dyspnea, stable fatigue, denies exercise intolerance, stable palpitations, denies edema, denies orthopnea, stable dizziness and stable orthostatic dizziness. * Disease Monitoring: [facility] 600 DO Work Phone: Hospital Discharge instructions No data available for this section [facility]InstructionsNot on filedocumented in this encounter [facility] SystemInstructionsNot on filedocumented in this encounter [facility] SystemInstructionsNot on filedocumented in this encounter [facility] SystemInstructionsNot on filedocumented in this encounter [facility] SystemInstructionsNot on filedocumented in this encounter [facility] SystemProgress note No data available for this section [facility]Reason for referral (narrative)* Diagnostic Procedure Only (Routine) - Pending Review Specialty Diagnoses / Procedures Referred By Rachel lópez Referred To Contact XR IMAGING Diagnoses Right knee pain, unspecified chronicity Procedures XR KNEE GENERAL 4V AP BOTH/PA BOTH/LAT/MERC RIGHT RADIOLOGIC EXAM KNEE COMPLETE 4/[place] [address] [place] [address] [place] [address] Referral ID Status Reason Start Date Expiration Date Visits Requested Visits Authorized [id number] Pending Review Auto-Generat ed Referral 3 08/04/2024 1 1 [facility] for visit Narrativerash knee referral from Cj Jaimes, She gets a funny rash on her knee and toesNorth OT Enterprises Other Summary Purpose Family History Unknown Family [...] or prosecute any alcohol or drug abuse patient.[facility] the event this information is protected by the Federal Confidentiality of Alcohol and Drug Abuse Patient Records regulations: The Federal rules restrict any use of the information to criminally investigate or prosecute any alcohol or drug abuse patient.[facility] HospitalIn the event this information is protected by the Federal Confidentiality of Alcohol and Drug Abuse Patient Records regulations: The Federal rules restrict any use of the information to criminally investigate or prosecute any alcohol or drug abuse patient.[facility] HospitalIn the event this information is protected by the Federal Confidentiality of Alcohol and Drug Abuse Patient Records regulations: The Federal rules restrict any use of the information to criminally investigate or prosecute any alcohol or drug abuse patient.[facility] the event this information is protected by the Federal Confidentiality of Alcohol and Drug Abuse Patient Records regulations: The Federal rules restrict any use of the information to criminally investigate or prosecute any alcohol or drug abuse patient.[facility] HospitalIn the event this information is protected by the Federal Confidentiality of Alcohol and Drug Abuse Patient Records regulations: The Federal rules restrict any use of the information to criminally investigate or prosecute any alcohol or drug abuse patient.[facility] HospitalIn the event this information is protected by the Federal Confidentiality of Alcohol and Drug Abuse Patient Records regulations: The Federal rules restrict any use of the information to criminally investigate or prosecute any alcohol or drug abuse patient.[facility] HospitalIn the event this information is protected by the Federal Confidentiality of Alcohol and Drug Abuse Patient Records regulations: The Federal rules restrict any use of the information to criminally investigate or prosecute any alcohol or drug abuse patient.[facility] HospitalIn the event this information is protected by the Federal Confidentiality of Alcohol and Drug Abuse Patient Records regulations: The Federal rules restrict any use of the information to criminally investigate or prosecute any alcohol or drug abuse patient.[facility] HospitalIn the event this information is protected by the Federal Confidentiality of Alcohol and Drug Abuse Patient Records regulations: The Federal rules restrict any use of the information to criminally investigate or prosecute any alcohol or drug abuse patient.[facility] HospitalIn the event this information is protected by the Federal Confidentiality of Alcohol and Drug Abuse Patient Records regulations: The Federal rules restrict any use of the information to criminally investigate or prosecute any alcohol or drug abuse patient.[facility] HospitalIn the event this information is protected by the Federal Confidentiality of Alcohol and Drug Abuse Patient Records regulations: The Federal rules restrict any use of the information to criminally investigate or prosecute any alcohol or drug abuse patient.[facility] HospitalIn the event this information is protected by the Federal Confidentiality of Alcohol and Drug Abuse Patient Records regulations: The Federal rules restrict any use of the information to criminally investigate or prosecute any alcohol or drug abuse patient.[facility] Reason for Visit (unrecogniz ed section [...] section and content) DATE CREATED AUTHOR 02/03/2022 [facility] DATE CREATED AUTHOR AUTHOR'S ORGANIZ ATION 06/24/2022 [facility] DATE CREATED AUTHOR AUTHOR'S ORGANIZ ATION 09/15/2022 [facility] DATE CREATED AUTHOR AUTHOR'S ORGANIZ ATION 03/16/2023 [facility] DATE CREATED AUTHOR AUTHOR'S ORGANIZ ATION 06/15/2023 [facility] DATE CREATED AUTHOR AUTHOR'S ORGANIZ ATION 07/11/2023 [facility] DATE CREATED AUTHOR AUTHOR'S ORGANIZ ATION 03/15/2024 [facility] DATE CREATED AUTHOR AUTHOR'S ORGANIZ ATION 04/15/2024 [facility] DATE CREATED AUTHOR AUTHOR'S ORGANIZ ATION 07/11/2024 [facility] DATE CREATED AUTHOR AUTHOR'S ORGANIZ ATION 07/26/2024 [facility] DATE CREATED AUTHOR AUTHOR'S ORGANIZ ATION 09/05/2024 [facility] DATE CREATED AUTHOR AUTHOR'S ORGANIZ ATION 10/17/2024 [facility] DATE CREATED AUTHOR AUTHOR'S ORGANIZ ATION 10/18/2024 [facility] Care Teams (unrecognized sec tion and content) Team Status: Inactive Member Role Status Dates Ibis Renteria , SOLDER SPRAYER-C Primary Care Provider Activ e Guerita Davidson NP-C Attending Provider Active Team Status: Inactive Member Role Status Dates Ibis Renteria , SOLDER SPRAYER-C Primary Care Provider Activ e Melodie Alcaraz MD Attending Provider Active Team Status: Inactive Member Role Status Dates Ibis Renteria , SOLDER SPRAYER-C Primary Care Provider Activ e Melodie Alcaraz MD Attending Provider Active Álvaro Osborn MD Referring Provider Active Team Status: Active Member Role Status Dates Ibis Renteria , SOLDER SPRAYER-C Primary Care Provider Activ e Team Status: Inactive Member Role Status Dates Ibis Renteria , SOLDER SPRAYER-C Primary Care Provider Activ e Dyllan Pearce APRN Emergency Provider Active Team Status: Inactive Member Role Status Dates Ibis Renteria , SOLDER SPRAYER-C Primary Care Provider Activ e Christina Perez APRN Attending Provider Active Team Status: Inactive Member Role Status Dates Ibis Renteria , SOLDER SPRAYER-C Primary Care Provider Activ e Carlitos Nguyen Jr, DO Attending Provider Active Mental Health Program Director Relationship Specialty Start Date End Date Ibis Renteria CNP [address] [place] [address] PCP - General Nurse Practitioner 07/09/23 Mental Health Program Director Relationship Specialty Start Date End Date Ibis Renteria MENTAL HEALTH ORDERLY [address] [place] [address] PCP - General Nurse Practitioner 07/09/23 Team Status: Inactive Member Role Status Dates Ibis Renteria , SOLDER SPRAYER-C Primary Care Provider Activ e Haris Martino , DO Emergency Provider Active Team Status: Inactive Member Role Status Dates Ibis Renteria , SOLDER SPRAYER-C Primary Care Provider Activ e Nam Barnes , DO [facility] Attending Provider Active Mental Health Program Director Relationship Specialty Start Date End Date Jb Mandujano MD [address] [facility] [address] [place] [address] PCP - General Family Medicine 05/20/24 Osei Malik DO [address] [place] [address] Referring Physician Obstetrics and Gynecology 06/05/24 Flori Gil [place] [facility] [place] [address] Physician Er Rn Obstetrics and Gynecology 06/05/24 Mental Health Program Director Relationship Specialty Start Date End Date Jb Mandujano MD [address] [place] [address] [place] [address] PCP - General Family Medicine 05/20/24 Osei Malik DO [facility] [place] [address] Referring Physician Obstetrics and Gynecology 06/05/24 Flori Gil [place] [facility] [place] [address] Physician Er Rn Obstetrics and Gynecology 06/05/24 Mental Health Program Director Relationship Specialty Start Date End Date Ander Boateng MD [address] [place] [address] PCP - General 11/30/17 Mental Health Program Director Relationship Specialty Start Date End Date Jb Mandujano MD [address] [facility] [address] [place] [address] PCP - General Family Medicine 05/20/24 Osei Malik DO [address] [place] [address] Referring Physician Obstetrics and Gynecology 06/05/24 Flori Gil PA [address] [place] [address] Physician Er Rn Obstetrics and Gynecology 06/05/24 Mental Health Program Director Relationship Specialty Start Date End Date Jb Mandujano MD [address] [place] [address] [place] [address] PCP - General Family Medicine 05/20/24 Osei Malik DO [address] [place] [address] Referring Physician Obstetrics and Gynecology 06/05/24 Flori Gil PA [address] [place] [address] Physician Er Rn Obstetrics and Gynecology 06/05/24 Mental Health Program Director Relationship Specialty Start Date End Date Jb Mandujano MD [address] [facility] [address] [place] [address] PCP - General Family Medicine 05/20/24 Osei Malik, [facility] [place] [address] Referring Physician Obstetrics and Gynecology 06/05/24 Flori Gil PA [address] [place] [address] Physician Er Rn Obstetrics and Gynecology 06/05/24 Mental Health Program Director Relationship Specialty Start Date End Date Ander Boateng MD [address] [place], [place] [id number] PCP - General 11/30/17 Mental Health Program Director Relationship Specialty Start Date End Date Jb Mandujano MD [address] [place] [address] PCP - General Family Medicine 05/20/24 Osei Malik, [address] [place] [address] Referring Physician Obstetrics and Gynecology 06/05/24 Flori Gil [place] [facility] [place] [address] Physician Er Rn Obstetrics and Gynecology 06/05/24 Mental Health Program Director Relationship Specialty Start Date End Date Jb Mandujano MD [address] [place] [address] PCP - General Family Medicine 05/20/24 Osei Malik, DO [address] [place] [address] Referring Physician Obstetrics and Gynecology 06/05/24 Flori Gil [place] [facility] [place] [address] Physician Er Rn Obstetrics and Gynecology 06/05/24 Mental Health Program Director Relationship Specialty Start Date End Date Ander Boateng MD [address] [place] [address] PCP - General 11/30/17 Mental Health Program Director Relationship Specialty Start Date End Date Jb Mandujano MD [address] [place] [address] PCP - General Family Medicine 05/20/24 Osei Malik DO [address] [place] [address] Referring Physician Obstetrics and Gynecology 06/05/24 Flori Gil PA [address] [place] [address] Physician Er Rn Obstetrics and Gynecology 06/05/24 Mental Health Program Director Relationship Specialty Start Date End Date Jb Mandujano MD [address] [place] [address] [place] [address] PCP - General Family Medicine 05/20/24 Osei Malik, [facility] [place] [address] Referring Physician Obstetrics and Gynecology 06/05/24 Flori Gil [place] [facility] [place] [address] Physician Er Rn Obstetrics and Gynecology 06/05/24 Mental Health Program Director Relationship Specialty Start Date End Date Ander Boateng MD [address] [place] [address] PCP - General 11/30/17 Mental Health Program Director Relationship Specialty Start Date End Date Jb Mandujano MD [address] [place] [address] [place] [address] PCP - General Family Medicine 05/20/24 Osei Malik DO [address] [place] [address] Referring Physician Obstetrics and Gynecology 06/05/24 Flori Gil PA [address] [place] [address] Physician Er Rn Obstetrics and Gynecology 06/05/24 Mental Health Program Director Relationship Specialty Start Date End Date Jb Mandujano MD [address] [facility] [address] [place] [address] PCP - General Family Medicine 05/20/24 Mental Health Program Director Relationship Specialty Start Date End Date Jb Mandujano MD [address] [facility] [address] [place] [address] PCP - General Family Medicine 05/20/24 Mental Health Program Director Relationship Specialty Start Date End Date Jb Mandujano MD [address] [facility] [address] [place] [address] PCP - General Family Medicine 05/20/24 Mental Health Program Director Relationship Specialty Start Date End Date Jb Mandujano MD [address] [facility] [address] [place] [address] PCP - General Family Medicine 05/20/24 Mental Health Program Director Relationship Specialty Start Date End Date Jb Mandujano MD [address] [facility] [address] [place] [address] PCP - General Family Medicine 05/20/24 Osei Malik DO [address] [place], [place] [id number] Referring Physician Obstetrics and Gynecology 06/05/24 Flori Gil PA [address] [place] [address] Physician Er Rn Obstetrics and Gynecology 06/05/24 Mental Health Program Director Relationship Specialty Start Date End Date Jb Mandujano MD [address] [facility] [address] [place] [address] PCP - General Family Medicine 05/20/24 Osei Malik DO [address] [place] [address] Referring Physician Obstetrics and Gynecology 06/05/24 Flori Gil PA [address] [place] [address] Physician Er Rn Obstetrics and Gynecology 06/05/24 Mental Health Program Director Relationship Specialty Start Date End Date Jb Mandujano MD [address] [place] [address] [place] [address] PCP - General Family Medicine 05/20/24 Osei Malik, DO [address] [place] [address] Referring Physician Obstetrics and Gynecology 06/05/24 Flori Gil PA [address] [place] [address] Physician Er Rn Obstetrics and Gynecology 06/05/24 Mental Health Program Director Relationship Specialty Start Date End Date Jb Mandujano MD [address] [facility] [place] [address] PCP - General Family Medicine 05/20/24 Osei Malik DO [address] [place] [address] Referring Physician Obstetrics and Gynecology 06/05/24 Flori Gil PA [address] [place] [address] Physician Er Rn Obstetrics and Gynecology 06/05/24 Mental Health Program Director Relationship Specialty Start Date End Date Ander Boateng MD [address] [place] [address] PCP - General 11/30/17 Mental Health Program Director Relationship Specialty Start Date End Date Jb Mandujano MD [address] [facility] [address] [place] [address] PCP - General Family Medicine 05/20/24 Osei Malik DO [facility] [place] [address] Referring Physician Obstetrics and Gynecology 06/05/24 Flori Gil PA [address] [place], [place] [address] [address] Physician Er Rn Obstetrics and Gynecology 06/05/24 Mental Health Program Director Relationship Specialty Start Date End Date Jb Mandujano MD [address] [place] [address] [place] [address] PCP - General Family Medicine 05/20/24 Osei Malik DO [facility] [place] [address] Referring Physician Obstetrics and Gynecology 06/05/24 Flori Gil [place] [facility] [place] [address] Physician Er Rn Obstetrics and Gynecology 06/05/24 Mental Health Program Director Relationship Specialty Start Date End Date Ander Boateng MD [address] [place] [address] [place] [address] PCP - General 11/30/17 Mental Health Program Director Relationship Specialty Start Date End Date Jb Mandujano MD [address] [address] PCP - General Family Medicine 05/20/24 Osei Malik DO [address] [place], [place] [address] Referring Physician Obstetrics and Gynecology 06/05/24 Flori Gil PA [address] [place], [place] [address] Physician Er Rn Obstetrics and Gynecology 06/05/24 Goals (unrecognized section [...] BE BASED ON THE PRIMARY CLINICAL RECORDS. [employer] provides no warranty or guarantee of the accuracy or completeness of information in this document.
[2024-10-25 13:04] VITALS: BP 127/74; PULSE 101
== END 2024-10-25 14:16 | disposition home or self-care (01) ==
LOC: FBCO 03:27 → FBC 13:00
PROVIDERS: PCP Family Medicine; Visit Provider Obstetrics & Gynecology
DX: O30.003 Twin pregnancy, unspecified number of placenta and unspecified number of amniotic sacs, third trimester (principal); Z3A.31 31 weeks gestation of pregnancy
CPT/HCPCS: 59025

== ENCOUNTER 2024-10-27 14:19 | Observation (INO) | payer OTHER, SELFPAY ==
[2024-10-27 14:40] VITALS: BP 128/78; PULSE 98
[2024-10-27 15:00] LABS: Bilirubin Urine NEGATIVE (NEGATIVE); Blood Urine NEGATIVE (NEGATIVE); Clarity Urine CLEAR (CLEAR); Color Urine LT. YELLOW (YELLOW); Glucose Urine UA 500 mg/dL (NEGATIVE); Ketones Urine NEGATIVE (NEGATIVE); Leukocyte Esterase Urine SMALL (NEGATIVE); Nitrite Urine NEGATIVE (NEGATIVE); Protein Urine NEGATIVE (NEG/TRACE); pH Urine 6.5 (5.0-9.0)
[2024-10-27 15:01] LABS: Urine Microscopic Indicated YES
--- NOTE | 2024-10-27 15:03 | ECG_ITS ---
[facility] Test Date: 2024-10-27 Pat Name: CJ MAI Department: Room: [facility] Gender: Female Ncr Operator: : 2000 Requested By: SHELBI WILLIAM Order Number: [id number] Reading MD: MARTY MEJÍA Measurements Intervals [place] Rate: 98 P: 36 NC: 153 QRS: 19 QRSD: 98 T: 28 QT: 353 QTc: 451 Interpretive Statements SINUS RHYTHM No previous ECG available for comparison Electronically Signed On 10-27-2024 20:49:34 EST by MARTY MEJÍA
[2024-10-27 15:11] LABS: Bacteria Urine SMALL #/HPF (NONE SEEN); Cast Seen? NONE SEEN #/LPF (NONE SEEN); Crystals Seen? None Seen #/HPF (None Seen); Mucus Urine TRACE (NONE SEEN); RBC Urine 0-2 #/HPF (0-2); Squamous Epithelial Cell Urine FEW #/LPF (NONE/RARE); Urine Culture Indicated YES
--- NOTE | 2024-10-27 15:28 | CT_ITS ---
[address] [address] Patient Name: CJ MAI MRN: [id number] date: 2000 Sex: F Assigned Patient Location: [facility] Current Patient Location: [facility] Accession/Order Number: [id number] Exam Date: 10/27/2024 15:20 Report Date: 10/27/2024 15:54 At the request of: SHELBI WILLIAM Procedure: CT angio chest EXAMINATION: CT angio chest HISTORY: Rt mid back pain and SOB ; 30 weeks COMPARISON: No relevant comparison available. TECHNIQUE: Multi-planar CT images were created with IV contrast. Axial, Coronal, and Sagittal images. Dose reduction techniques were achieved by using automated exposure control and/or adjustment of mA and/or kV according to patient size and/or use of iterative reconstruction technique. 3-D reconstruction was performed on a separate workstation. FINDINGS: VASCULATURE: No pulmonary embolism or abnormal opacity. LUNGS: No visible pulmonary disease. PLEURA: No mass, effusion, or pneumothorax. TOBIN: No mass or adenopathy. MEDIASTINUM: No mass or adenopathy. CARDIAC: No enlargement, pericardial effusion, or pericardial thickening. AORTA: No aneurysm or dissection. CHEST WALL: No mass or axillary adenopathy. BONES: No bone lesion or fracture. LIMITED ABDOMEN: Slightly prominent spleen, 13.4 cm.. Limited images of the upper abdomen. OTHER: Negative. CT/CT angio chest IMPRESSION: 1. No pulmonary embolism. 2. No pulmonary infiltrates or suspicious findings to account for patient's symptoms. Electronically authenticated by: CHAN SMALL Date: 10/27/2024 15:54
== END 2024-10-27 17:20 | disposition home or self-care (01) ==
PROVIDERS: Admitting Provider Obstetrics & Gynecology; PCP Family Medicine; Visit Provider Obstetrics & Gynecology
DX: O99.891 Other specified diseases and conditions complicating pregnancy (principal); R06.02 Shortness of breath; O30.043 Twin pregnancy, dichorionic/diamniotic, third trimester; M54.89 Other dorsalgia; Z3A.31 31 weeks gestation of pregnancy
CPT/HCPCS: 59025; 71275; 81001; 87086; 93005; G0378; G0379; Q9967

== ENCOUNTER 2024-10-29 01:08 | Outpatient (OUT) | payer OTHER, MEDICAID, SELFPAY ==
--- OUTSIDE RECORDS SUMMARY | 2024-10-29 01:13 | XMS_ITS | CCD ---
Author Organization [facility] Care Team Providers Care Paint And Table Edger Name Role Phone Unavailable Primary Care Provider Unavailsoniya e Christina Pearce Unavailable Ok Mckeon Unavailable Ibis Renteria Unavailable [phone] Unavailable Unavailable CARLOS Renteria Primary Care Provider MD Melodie Alcaraz Attending Provider [phone] MD Álvaro Osborn Referring Provider CARLOS Davidson Attending Provider [phone] JOHNNY Pearce Emergency Provider [phone] Link, Dr. Annalee Torres Attending Unavailab celine [...] Alcaraz, Dr. Sewell Referring Unavailable Myra, MsJesika Winetr Primary Care Unavail able Alcaraz, Dr. Sewell [...] Myra Ibis GOODSON Primary Care Provider [phone] Myra, SCISSORS GRINDER-C Ibis Winter Primary Care Provider DO Haris Martino Emergency Provider DO Nam Barnes Attending Provider JB MANDUJANO Primary Care Physician Rinkes, Celeste Admitting Unavailable Rinkes, Celeste Attending Unavailable Jocelin FELIX Attending Unavailable Mae, TRANSIT COACH OPERATOR Krista L Attending Unavailable Mae, TRANSIT COACH OPERATOR Krista L Attending Unavailable Unavailable Primary Care Provider Unavailabl e Rinkes, Celeste Attending Unavailable Rinkes, Celeste Admitting Unavailable Rinkes, Celeste Attending Unavailable Rinkes, Celeste Admitting Unavailable Jb Mandujano MD Primary Care Provider [phone] Osei Malik DO Unavailable Flori Sam Unavailable Ander Boateng MD Primary Care Provider [phone] [facility] Admitting Unavailable Ibis Renteria Primary [...] Attending Unavailable HELENA, OSEI Attending Unavailable HELENA, OSIE Attending Unavailable HELENA, OSEI Attending Unavailable HELENA, [...] / oxyCODONE; Translations: [acetaminophen-o xycodone] Drug Allergy [facility] Comment on above: no narcotics, GI ups et Chlorhexidine (1 source) Chlorhexidine; Translations: [chlorhexidine topical] Drug Allergy Itching [facility] Corticosteroids (1 source) predniSONE; Translations: [prednisone] Drug Allergy [facility] (15 sources) Morphinan opioid; Translations: [OPIOIDS - MORPHINE ANALOGUES] Propensity to adverse reactions to drug 01-26-20 Other: See Comments [facility] (20 sources) predniSONE; Translations: [predniSONE] Drug Allergy 01-26-20 22 Other: See Comments, Dizziness [facility] (20 sources) prednisoLONE; Translations: [prednisolone] Drug Allergy 01-11-[address] [facility] [employer] Other (15 sources) Fludrocortisone; Translations: [Florinef TABS] Drug Allergy Nausea [facility] 320 DO Work Phone: (20 sources) Midodrine; Translations: [midodrine] Drug Allergy 08-13-20 23 GI bleeding [facility] (3 sources) Acetaminophen / oxyCODONE; Translations: [Percocet] Drug Allergy [facility] (4 sources) Chlorhexidine; Translations: [chlorhexidine topical] Drug Allergy Itching [facility] (7 sources) Acetaminophen / oxyCODONE; Translations: [acetaminophen-o xycodone] Drug Allergy 07-07-20 24 GI Disturbance [facility] [place] Comment on above: no narcotics, GI ups et (20 sources) Acetaminophen / oxyCODONE; Translations: [OXYCODONE-ACETA MINOPHEN] Drug Allergy 02-26-20 24 [facility] (20 sources) Chlorhexidine; Translations: [CHLORHEXIDINE] Drug Allergy 02-21-20 23 Itching [facility] Work Phone: (20 sources) Fludrocortisone; Translations: [FLUDROCORTISONE ] Drug Allergy 07-26-20 22 Nausea [facility] (20 sources) Prednisone Allergy to substance 02-18-20 23 Dizziness [facility] (1 source) predniSONE Drug Allergy 06-08-20 23 [facility] Medications Current Medications Medication Drug Class(es) Dates Sig (Normalized) Sig (Original) [id number] 200 actuat albuterol 0.09 mg/actuat metered dose [...] beclomethasone dipropionate 0.08 mg/actuat metered dose inhaler (20 sources) Corticosteroid Start: Beclomethasone Diprop HFA (Qvar [...] this medication. 14 tablet 08/07/2024 08/14/2024 Active [place] (No Known Home Meds) (1 source) Start: [place] (No Known Home Meds) Active June 08, [...] Active Start: 12-11-2023 take 1 capsule by [facility] once daily omeprazole 40 mg Cap-DR 40 mg = 1 cap(s), Oral, Daily, # 30 cap(s), Refills(s) 1, Pharmacy: [facility] 1155, 168.3, cm, 12/11/23 13:07:00 EDT, [...] 30 Refills: 6 Ordered: 13-Jun-2023 Boy Cota APRN-RESIDENTIAL AIDE, Tabatha Start : 13-Jun-2023 Active methotrexate 2.5 [...] Active Start: 07-10-2022 take 0.5 tablet by [facility] three times daily Midodrine HCl - 10 [...] tolerance complicating ; childbirth; or the puerperium (14 sources) Gestational diabetes mellitus; Translations: [Gestational diabetes [...] of ] 09-18-2024 Episodic Residual codes; unclassified (14 sources) Gestation period, 29 weeks; Translations: [29 [...] Test Name Value Interpretation Reference Range Facility CTA Chest vessels WO and W c ontrast Luiz 10-27-[address] [address] [address] Scan Report Signed Patient: MADYSON MAI MR#: [id number] : 2000 Acct:[id number] Age/Sex: 23 / F ADM Date: Loc: [facility] 251-[address]: Osei Malik D.O. Ordering Physician: Osei Malik D.O. Date of Service: 10/27/24 Procedure(s): CT angio chest Accession Number(s): [id number] cc: JB MANDUJANO [address] [address] Patient Name: MADYSON MAI MRN: [id number] date: 2000 Sex: F Assigned Patient Location: [facility] Current Patient Location: [facility] Accession/Order Number: [id number] Exam Date: 10/27/2024 15:20 Report Date: 10/27/2024 15:54 At the request of: OSEI MALIK Procedure: CT angio chest EXAMINATION: CT angio chest HISTORY: Rt mid back pain and SOB ; 30 weeks COMPARISON: No relevant comparison available. TECHNIQUE: Multi-planar CT images were created with IV contrast. Axial, Coronal, and Sagittal images. Dose reduction techniques were achieved by using automated exposure control and/or adjustment of mA and/or kV according to patient size and/or use of iterative reconstruction technique. 3-D reconstruction was performed on a separate workstation. FINDINGS: VASCULATURE: No pulmonary embolism or abnormal opacity. LUNGS: No visible pulmonary disease. PLEURA: No mass, effusion, or pneumothorax. TOBIN: No mass or adenopathy. MEDIASTINUM: No mass or adenopathy. CARDIAC: No enlargement, pericardial effusion, or pericardial thickening. AORTA: No aneurysm or dissection. CHEST WALL: No mass or axillary adenopathy. BONES: No bone lesion or fracture. LIMITED ABDOMEN: Slightly prominent spleen, 13.4 cm.. Limited images of the upper abdomen. OTHER: Negative. CT/CT angio chest IMPRESSION: 1. No pulmonary embolism. 2. No pulmonary infiltrates or suspicious findings to account for patient's symptoms. Electronically authenticated by: CHAN SMALL Date: 10/27/2024 15:54 Dictated By: Chan Small M.D. Signed By: 10/27/24 1556 DD/ 1554 TD/TT: Storage Consultant: [facility] Radiology, Radiologi MD billy - 10/27/2024 [place] [address] CT Scan Report Signed Patient: MADYSON MAI MR#: [id number] : 2000 Acct:[id number] Age/Sex: 23 / F ADM Date: Loc: [facility] [address]: Osei Malik D.O. Ordering Physician: Osei Malik D.O. Date of Service: 10/27/24 Procedure(s): CT angio chest Accession Number(s): [id number] cc: JB MANDUJANO The [place] [address] Patient Name: MADYSON MAI MRN: [id number] date: 2000 Sex: F Assigned Patient Location: [facility] Current Patient Location: [facility] Accession/Order Number: [id number] Exam Date: 10/27/2024 15:20 Report Date: 10/27/2024 15:54 At the request of: OSEI MALIK Procedure: CT angio chest EXAMINATION: CT angio chest HISTORY: Rt mid back pain and SOB ; 30 weeks COMPARISON: No relevant comparison available. TECHNIQUE: Multi-planar CT images were created with IV contrast. Axial, Coronal, and Sagittal images. Dose reduction techniques were achieved by using automated exposure control and/or adjustment of mA and/or kV according to patient size and/or use of iterative reconstruction technique. 3-D reconstruction was performed on a separate workstation. FINDINGS: VASCULATURE: No pulmonary embolism or abnormal opacity. LUNGS: No visible pulmonary disease. PLEURA: No mass, effusion, or pneumothorax. TOBIN: No mass or adenopathy. MEDIASTINUM: No mass or adenopathy. CARDIAC: No enlargement, pericardial effusion, or pericardial thickening. AORTA: No aneurysm or dissection. CHEST WALL: No mass or axillary adenopathy. BONES: No bone lesion or fracture. LIMITED ABDOMEN: Slightly prominent spleen, 13.4 cm.. Limited images of the upper abdomen. OTHER: Negative. CT/CT angio chest IMPRESSION: 1. No pulmonary embolism. 2. No pulmonary infiltrates or suspicious findings to account for patient's symptoms. Electronically authenticated by: CHAN SMALL Date: 10/27/2024 15:54 Dictated By: Chan Small M.D. Signed By: 10/27/24 1556 DD/ 1554 TD/TT: Storage Consultant: [employer] Radiology Study observation (narrative) [facility] Naroomi CTA Chest vessels WO and W c ontrast IVOrdered By: Radiologist Radiology on 10-27-2024 [facility]: ECG 12-LEADon 10-27-2024 [place] [address] Electrocardiograph Report Signed Patient: MADYSON MAI MR#: [id number] : 2000 Acct:[id number] Age/Sex: 23 / F ADM Date: Loc: [facility] Attending Dr: Osei Malik D.O. Ordering Physician: Osei Malik D.O. Date of Service: 10/27/24 Procedure(s): ECG 12 lead Accession Number(s): [id number] cc: [facility] Test Date: 2024-10-27 Pat Name: MADYSON MAI Department: Room: [facility] Gender: Female Gas Controller: : 2000 Requested By: OSEI MALIK Order Number: [id number] Reading MD: SURYA MEJÍA Measurements Intervals [place] Rate: 98 P: 36 GA: 153 QRS: 19 QRSD: 98 T: 28 QT: 353 QTc: 451 Interpretive Statements SINUS RHYTHM No previous ECG available for comparison Electronically Signed On 10-27-2024 20:49:34 EST by SURYA MEJÍA Dictated By: Surya Mejía D.O. Signed By: 10/27/242048 DD/ 1555 TD/TT: Storage Consultant: [facility] Radiology, Radiologi MD billy - 10/27/2024 [place] [address] Electrocardiograph Report Signed Patient: MADYSON MAI MR#: [id number] : 2000 Acct:[id number] Age/Sex: 23 / F ADM Date: Loc: [place] [address]: Osei Malik D.O. Ordering Physician: Osei Malik D.O. Date of Service: 10/27/24 Procedure(s): ECG 12 lead Accession Number(s): [id number] cc: [facility] Test Date: 2024-10-27 Pat Name: MADYSON MAI Department: Room: [facility] Gender: Female Gas Controller: : 2000 Requested By: OSEI MALIK Order Number: [id number] Reading MD: SURYA MEJÍA Measurements Intervals [place] Rate: 98 P: 36 GA: 153 QRS: 19 QRSD: 98 T: 28 QT: 353 QTc: 451 Interpretive Statements SINUS RHYTHM No previous ECG available for comparison Electronically Signed On 10-27-2024 20:49:34 EST by SURYA MEJÍA Dictated By: Surya Mejía D.O. Signed By: 10/27/242048 DD/ 54 TD/TT: Storage Consultant: [facility] Radiology Study observation (narrative) [facility] ECG 12-LEADOrdered By: Radio logist Radiology on 10-27-2024 [facility] Work Phone: [facility] UA (CLEAN/CATCH) FORMING YARDAGE CONTROL OPERATOR/YOUSIF RO IF IND.on 10-27-2024 BILIRUBIN URINE Negative NEGATIVE [facility] BLOOD URINE Negative NEGATIVE [facility] Healthcare Clarity (U) CLEAR CLEAR [facility] Healthcare Color (U) LT. YELLOW YELLOW [facility] GLUCOSE URINE UA 500 mg/dL Abnormal NEGATIVE [facility] Interpretation and review of laboratory results Abnormal [facility] Ketones Ql (U) Negative NEGATIVE mg/dL [facility] Leukocyte esterase Test strip Ql (U) SMALL Abnormal NEGATIVE [facility] NITRITE URINE Negative NEGATIVE [facility] pH (U) 6.5 [pH] 5.0 - 9.0 [facility] PROTEIN URINE Negative NEG/TRACE mg/dL [facility] SPECIFIC GRAVITY URINE 1.020 1.005 - 1.025 [facility] URINE MICROSCOPIC INDICATED YES [facility] UROBILINOGEN URINE 1.0 EU/dL 0.2 - 1.0 EU/dL [facility] No Panel InformationOrdered By: Radiologist Radiology on 10-23-2024 [facility] Work Phone: No Panel Informationon 10-23 Radiology Study observation (narrative) [facility] US OB BPP W NON-STRESS on 10-23-2024 [place] [address] Ultrasound Report Signed Patient: MADYSON MAI MR#: [id number] : 2000 Acct:[id number] Age/Sex: 23 / F ADM Date: 10/22/24 Loc: US Attending Dr: Osei Malik D.O. Ordering Physician: Osei Malik D.O. Date of Service: 10/22/24 Procedure(s): US OB BPP w non-stress Accession Number(s): [id number] cc: JB MANDUJANO ; Osei Malik D.O. The [place] [id number] Patient Name: MADYSON MAI MRN: [facility]:[id number] date: 2000 Sex: F Assigned Patient Location: [facility] Current Patient Location: Accession/Order Number: [id number] Exam Date: 10/22/2024 17:05 Report Date: 10/23/2024 [...] Signed By: 10/23/24 0745 DD/ 0742 TD/TT: Storage Consultant: [facility] Radiology, Radiologi MD billy - 10/23/[address] [address] Ultrasound Report Signed Patient: MADYSON MAI MR#: [id number] : 2000 Acct:[id number] Age/Sex: 23 / F ADM Date: 10/22/24 Loc: US Attending Dr: Osei Malik D.O. Ordering Physician: Osei Malik D.O. Date of Service: 10/22/24 Procedure(s): US OB BPP w non-stress Accession Number(s): [id number] cc: JB MANDUJANO ; Osei Malik D.O. [place] [id number] Patient Name: MADYSON MAI MRN: [id number] date: 2000 Sex: F Assigned Patient Location: [facility] Current Patient Location: Accession/Order Number: [id number] Exam Date: 10/22/2024 17:05 Report Date: 10/23/2024 [...] Signed By: 10/23/24 0745 DD/ 0742 TD/TT: Storage Consultant: [place] [address] Ultrasound Report Signed Patient: MADYSON MAI MR#: [id number] : 2000 Acct:[id number] Age/Sex: 23 / F ADM Date: 10/22/24 Loc: US Attending Dr: Osei Malik D.O. Ordering Physician: Osei Malik D.O. Date of Service: 10/22/24 Procedure(s): US OB BPP w non-stress Accession Number(s): [id number] cc: JB MANDUJANO ; Osei Malik D.O. The [address] [address] Patient Name: MADYSON MAI MRN: [facility]:[id number] date: 2000 Sex: F Assigned Patient Location: [facility] Current Patient Location: Accession/Order Number: [id number] Exam Date: 10/22/2024 17:05 Report Date: 10/23/2024 [...] Signed By: 10/23/24 0745 DD/ 0742 TD/TT: Storage Consultant: [facility] Radiology Radiologyelitza cervantes MD - 10/23/[address] [address] Ultrasound Report Signed Patient: MADYSON MAI MR#: [id number] : 2000 Acct:[id number] Age/Sex: 23 / F ADM Date: 10/22/24 Loc: US Attending Dr: Osei Malik D.O. Ordering Physician: Osei Malik D.O. Date of Service: 10/22/24 Procedure(s): US OB BPP w non-stress Accession Number(s): [id number] cc: JB MANDUJANO ; Osei Malik D.O. [place] [address] Patient Name: MADYSON MAI MRN: [facility]:[id number] date: 2000 Sex: F Assigned Patient Location: [facility] Current Patient Location: Accession/Order Number: [id number] Exam Date: 10/22/2024 17:05 Report Date: 10/23/2024 [...] Dictated By: Chan Small M.D. Signed By: 10/23/2445 DD/ TD/TT: Storage Consultant: [facility] Urinalysis macro (dipstick) panel (U)on 10-15-2024 Bilirubin, UA Negative Negative - 4(70) +++ mg/dL [facility] Blood, UA Negative Negative - 50 Vasu/mcL [facility] Clarity, UA Clear [facility] Color, UA Yellow [facility] Glucose, UA Positive Negative - 1999(110) ++++ mg/dL [facility] Comment on above: 500 Interpretation and review of laboratory results Abnormal [facility] Ketones, UA Negative Negative - 160(16) ++++ mg/dL [facility] Leukocytes, UA Positive Negative - 500+++ Conrad/mcL [facility] Comment on above: small Nitrite, UA Negative Negative - Positive [facility] pH, UA 6 5 - 9 [facility] Protein, UA Trace Negative - 1999(20) ++++ mg/dL [facility] Spec Grav, UA 1.02 1 - 1.03 [facility] Urobilinogen, UA 0.2 0.2 - 12 mg/dL [facility] Urinalysis macro (dipstick) panel (U)on 10-02-2024 Bilirubin, UA Negative Negative - 4(70) +++ mg/dL [facility] Blood, UA Negative Negative - 50 Vasu/mcL [facility] Clarity, UA Clear [facility] Color, UA Yellow [facility] Glucose, UA Negative Negative - 1999(110) ++++ mg/dL [facility] Interpretation and review of laboratory results Abnormal [facility] Ketones, UA Positive Negative - 160(16) ++++ mg/dL [facility] Comment on above: 40 Leukocytes, UA Trace Negative - 500+++ Conrad/mcL [facility] Nitrite, UA Negative Negative - Positive [facility] pH, UA 6 5 - 9 [facility] Protein, UA Positive Negative - 1999(20) ++++ mg/dL [facility] Comment on above: 30 Spec Grav, UA 1.03 1 - 1.03 [facility] Urobilinogen, UA 0.2 0.2 - 12 mg/dL [facility] UA (CLEAN/CATCH) FORMING YARDAGE CONTROL OPERATOR/YOUSIF RO IF IND.on 09-25-2024 BILIRUBIN URINE Negative NEGATIVE [facility] BLOOD URINE Negative NEGATIVE [facility] Clarity (U) CLEAR CLEAR [facility] Color (U) LT. YELLOW YELLOW [facility] GLUCOSE URINE UA 250 mg/dL Abnormal NEGATIVE [facility] Interpretation and review of laboratory results Abnormal [facility] Ketones Ql (U) Negative NEGATIVE mg/dL [facility] Leukocyte esterase Test strip Ql (U) SMALL Abnormal NEGATIVE [facility] NITRITE URINE Negative NEGATIVE [facility] pH (U) 6.0 [pH] 5.0 - 9.0 [facility] PROTEIN URINE Negative NEG/TRACE mg/dL [facility] SPECIFIC GRAVITY URINE 1.020 1.005 - 1.025 [facility] URINE MICROSCOPIC INDICATED YES [facility] UROBILINOGEN URINE 0.2 EU/dL 0.2 - 1.0 EU/dL [facility] Urinalysis macro (dipstick) panel (U)on 09-18-2024 Bilirubin, UA Negative Negative - 4(70) +++ mg/dL [facility] Blood, UA Negative Negative - 50 Vasu/mcL [facility] Clarity, UA Clear [facility] Color, UA Yellow [facility] Glucose, UA Positive Negative - 1999(110) ++++ mg/dL [facility] Comment on above: 100 Interpretation and review of laboratory results Abnormal [facility] Ketones, UA Negative Negative - 160(16) ++++ mg/dL [facility] Leukocytes, UA Positive Negative - 500+++ Conrad/mcL [facility] Comment on above: small Nitrite, UA Negative Negative - Positive [facility] pH, UA 7 5 - 9 [facility] Protein, UA Trace Negative - 1999(20) ++++ mg/dL [facility] Spec Grav, UA 1.02 1 - 1.03 [facility] Urobilinogen, UA 0.2 0.2 - 12 mg/dL [facility] Urinalysis macro (dipstick) panel (U)on 09-03-2024 Bilirubin, UA Negative Negative - 4(70) +++ mg/dL [facility] Blood, UA Negative Negative - 50 Vasu/mcL [facility] Clarity, UA Clear [facility] Color, UA Yellow [facility] Glucose, UA Many Negative - 1999(110) ++++ mg/dL [facility] Interpretation and review of laboratory results Abnormal [facility] Ketones, UA Positive Negative - 160(16) ++++ mg/dL [facility] Leukocytes, UA Positive Negative - 500+++ Conrad/mcL [facility] Nitrite, UA Negative Negative - Positive [facility] pH, UA 6.5 5 - 9 [facility] Protein, UA Moderate Negative - 1999(20) ++++ mg/dL [facility] Spec Grav, UA 1.025 1 - 1.03 [facility] Urobilinogen, UA 0.2 0.2 - 12 mg/dL [facility] GLUCOSE TOLERANCE 3 HOURon 1 11-02-2023 GLUCOSE TOLERANCE 3 HOUR High mg/dL [facility] Comment on above: GLU FAST 86 (<95) Co l: 09/01/24 0818 GLU 1HR 162 (<180) Col: 09/01/24 0919 GLU 2HR 156H (<155) Col: 09/01/24 1019 GLU 3HR 110 (<140) Col: 09/01/24 1119 Interpretation and review of laboratory results Abnormal [facility] ALL CBC WITH AUTO DIFFon BASOPHILS ABSOLUTE AUTO 0 [facility] Basophils/100 WBC (Bld) 0.2 % 0.2 - 2.0 % [facility] Eosinophils/100 WBC (Bld) 0.7 % Low 0.9 - 7.0 % [facility] Erythrocyte distribution width (RBC) [Ratio] 13.6 % 11.0 - 15.0 % [facility] Hematocrit (Bld) [Volume fraction] 32.9 % Low 36.0 - 48.0 % [facility] Hemoglobin (Bld) [Mass/Vol] 11.1 g/dL Low 12.0 - 16.0 g/dL [facility] IMMATURE GRANULOCYTES ABS AUTO 0.11 High [facility] Immature granulocytes/100 WBC (Bld) 1.1 % High 0.0 - 0.5 % [facility] Interpretation and review of laboratory results Abnormal [facility] LYMPHOCYTES ABSOLUTE AUTO 1.3 [facility] Lymphocytes/100 WBC (Bld) 13 % Low 20.5 - 60.0 % [facility] MCH (RBC) [Entitic mass] 29.6 pg 26.7 - 34.0 pg [facility] MCHC (RBC) [Mass/Vol] 33.7 g/dL 29.9 - 35.2 g/dL [facility] MCV (RBC) [Entitic vol] 87.7 fL 81.0 - 99.0 fL [facility] MONOCYTES ABSOLUTE AUTO 0.6 [facility] Monocytes/100 WBC (Bld) 5.5 % 1.7 - 12.0 % [facility] NEUTROPHILS ABSOLUTE AUTO 7.9 High [facility] Neutrophils/100 WBC (Bld) 79.5 % High 43.0 - 75.0 % [facility] Platelet mean volume (Bld) [Entitic vol] 10.3 fL 9.5 - 13.5 fL [facility] EO # 0.1 [facility] PLT 178 [facility] RBC 3.75 Low [facility] WBC 9.9 [facility] IGP,APTIMA HPV,AGE GDLNon AGE GDLN ACOG TESTING Note . [facility] Comment on above: TESTS RESULT FLAG UN [facility] REF RANGE LAB Clinician Provided Cytology Information Source.............Cervix No. of containers..01 ThinPrep Vial Age Algo ACOG Maureen... FLAG LEGEND: L-Low Normal,H-High Normal,LL-Alert Low,HH-Alert High <-Panic Low,>-Panic High,A-Abnormal,AA-Critical Abnormal Performed at: 01 [facility] [address] [place] [address] Toya Wilson MD, IGP, RFX APTIMA HPV ASCU Note . [facility] Comment on above: TESTS RESULT FLAG UN [facility] REF RANGE LAB DIAGNOSIS: 02 NEGATIVE FOR INTRAEPITHELIAL LESION OR MALIGNANCY. Specimen adequacy: 02 Satisfactory for evaluation. No endocervical component is identified. Performed by: 02 Imelda Miranda Die Baker (ASCP) . 02 Note: Note 02 The [...] Low,>-Panic High,A-Abnormal,AA-Critical Abnormal Performed at: 02 [facility] [address] [id number] Toya Wilson MD, Performed at: =G - [facility] [address] [id number] Biomedical Repair Technician: Toya Wilson MD, Phone: [phone] Performed at: - [facility] [id number] Biomedical Repair Technician: oTya Wilson MD, Phone: [phone] [facility] AFP, SERUM, OPEN SPINA BIFID Aon 08-13-2024 AFP MOM 2.24 . [facility] AFP VALUE 103.1 ng/mL . [facility] COMMENT: Comment . [facility] Comment on above: Joyce Reina , Ph.D., [facility] Director References: Available Upon Request. Multiples Of Median Cutoffs For AFP Elevations Harringotn 2.5 Black 2.8 IDD 2.0 Twins 4.5 Abbreviation Definitions IDD - Insulin Dep Diabetes OSBR - Open Spina Bifida Risk For further inquiries contact [facility] at [phone]. This test was developed and its performance characteristics determined by [employer]. It has not been cleared or approved by the Food and Drug Administration. Performed at: [facility] [address] [place], [place] [id number] Biomedical Repair Technician: Angel Regan [facility], Phone: [phone] GEST. AGE ON COLLECTION DATE 20.3 . weeks [facility] GESTAT. AGE BASED ON LMP . [facility] Comment on above: Recalculations are n ot recommended when gestational dating by LMP and ultrasound are within 10 days. INSULIN DEP DIABETES No . [facility] INTERPRETATION Comment . [facility] Comment on above: Interpretation: [...] Customer Services to discuss available options. The [employer] recommends amniocentesis be offered to women age 35 and older. [age] [facility] MULTIPLE GESTATION Twins . [facility] OSBR RISK 1 IN 1081 . [facility] RACE . [facility] RESULTS Report . [facility] TEST RESULTS: Negative . [facility] WEIGHT 219 . 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 3-vessel view. 8-tijwxh-xxpmxfe view. Interventricular septum. Diaphragm. Abdomen Right renal [...] Nuchal fold. F (more content not included)... [facility] Radiology Study observation (narrative) [facility] US for pregnancyOrdered By: Radiologist Radiology on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 (U) [Rel density] 1.015 1.001-1.03 0 [facility] Squamous epithelial cells de tection in urine sediment by light microscopyOrdered By: Haris Martino on 06-08-2023 Epithelial cells.squamous LM Ql (Urine sed) 3-4 [HPF] 0-2 [facility] Troponin I.cardiac [Mass/vol ume] in Serum or Plasma by Detection limit <= 0.01 ng/Ordered By: Haris Martino on 06-08-2023 Troponin I.cardiac DL <= 0.01 ng/mL [Mass/Vol] < 2.3 pg/mL 0.0-15.0 [facility] Urea nitrogen [Mass/volume] in Serum or PlasmaOrdered By: Haris Martino 06-08-2023 Urea nitrogen [Mass/Vol] 10 mg/dL 7-25 [facility] Urine bacteria detection by automated methodOrdered By: Haris Martino on 06-08-2023 Bacteria Auto Ql (U) 1+ None Seen [facility] Urine clarity by refractomet ry automatedOrdered By: Haris Martino on 06-08-2023 Clarity Refractometry automated (U) Clear Clear [facility] Urine glucose measurement by automated test strip (mass/volume)Ordered By: Haris Martino on 06-08-2023 Glucose Auto test strip (U) [Mass/Vol] Normal mg/dL Normal [facility] Urine hemoglobin detection b y automated test stripOrdered By: Haris Martino on 06-08-2023 Hemoglobin Auto test strip Ql (U) Negative Negative [facility] Urine leukocyte esterase det ection by automated test stripOrdered By: Haris Martino on 06-08-2023 Leukocyte esterase Auto test strip Ql (U) 1+ Negative [facility] Urobilinogen Auto test strip (U) [Mass/Vol]Ordered By: Haris Martino on 06-08-2023 Urobilinogen (U) [Mass/Vol] Normal mg/dL Normal [facility] WBC Auto (Bld) [#/Vol]Ordere d By: Haris Martino on 06-08-2023 WBC (Bld) [#/Vol] 8.3 10*3/uL 3.8-11.6 [facility] pH Auto test strip (U)Ordere d By: Haris Martino on 06-08-2023 pH (U) 6.5 [pH] 5.0-9.0 [facility] Alanine aminotransferase [En zymatic activity/volume] in Serum or PlasmaOrdered By: Carlitos Nguyen on 04-25-2023 ALT [Catalytic activity/Vol] 18 U/L 7-52 [facility] Albumin [Mass/volume] in Ser um or Plasma by Bromocresol green (BCG) dye binding methoOrdered By: Carlitos Nguyen on 04-25-2023 Albumin BCG dye [Mass/Vol] 4.8 g/dL 3.5-5.7 [facility] Alkaline phosphatase [Enzyma tic activity/volume] in Serum or PlasmaOrdered By: Carlitos Nguyen on 04-25-2023 ALP [Catalytic activity/Vol] 73 U/L 34-104 [facility] Aspartate aminotransferase [ Enzymatic activity/volume] in Serum or PlasmaOrdered By: Carlitos Nguyen on 04-25-2023 AST [Catalytic activity/Vol] 18 U/L 13-39 [facility] Bilirubin.total [Mass/volume ] in Serum or PlasmaOrdered By: Carlitos Nguyen on 04-25-2023 Bilirubin [Mass/Vol] 0.5 mg/dL 0.3-1.0 [facility] Calcium [Mass/volume] in Ser um or PlasmaOrdered By: Carlitos Nguyen on 04-25-2023 Calcium [Mass/Vol] 9.9 mg/dL 8.6-10.3 [facility] Carbon dioxide, total [Moles /volume] in Serum or PlasmaOrdered By: Carlitos Nguyen on 04-25-2023 CO2 [Moles/Vol] 25.9 mmol/L 21.0-31.0 [facility] Chloride [Moles/volume] in S colin or PlasmaOrdered By: Carlitos Nguyen on 04-25-2023 Chloride [Moles/Vol] 105 mmol/L 98-107 [facility] Cholesterol [Mass/volume] in Serum or PlasmaOrdered By: Carlitos Nguyen on 04-25-2023 Cholesterol [Mass/Vol] 208 mg/dL 140-200 [facility] Comment on above: Chol less than 200 m g/dl low riskChol 201-239 mg/dl borderline riskChol 240 mg/dl and greater high risk Cholesterol in LDL Calc [Mas s/Vol]Ordered By: Carlitos Nguyen on 04-25-2023 Cholesterol in LDL [Mass/Vol] 136 mg/dL 0-100 [facility] Comment on above: LDL ATP III CLASSIFI CATIONLDL less than 100 mg/dL OptimalLDL 100-129 mg/dL Near or above optimalLDL 130-159 mg/dL Borderline highLDL 160-189 mg/dL HighLDL greater than 189 mg/dL Very high Cholesterol in VLDL Calc [Ma ss/Vol]Ordered By: Carlitos Nguyen on 04-25-2023 Cholesterol in VLDL [Mass/Vol] 16 mg/dL [facility] Creatinine [Mass/volume] in Serum or PlasmaOrdered By: Carlitos Nguyen on 04-25-2023 Creatinine [Mass/Vol] 0.81 mg/dL 0.60-1.[address] [facility] Globulin Calc (S) [Mass/Vol] Ordered By: Carlitos Nguyen on 04-25-2023 Globulin (S) [Mass/Vol] 2.6 g/dL [facility] Glucose [Mass/volume] in Ser um or PlasmaOrdered By: Carlitos Nguyen on 04-25-2023 Glucose [Mass/Vol] 84 mg/dL 70-100 [facility] No Panel InformationOrdered By: Carlitos Nguyen on 04-25-2023 Estimated GFR (CKD-EPI) > 60.0 mL/Min [facility] Creatinine Clearance (Chem N/A [facility] Potassium [Moles/volume] in Serum or PlasmaOrdered By: Carlitos Nguyen on 04-25-2023 Potassium [Moles/Vol] 4.3 mmol/L 3.5-5.[address] [facility] Comment on above: Hemolysis is present at a level that could interfere with the result. Protein [Mass/volume] in Ser um or PlasmaOrdered By: Carlitos Nguyen on 04-25-2023 Protein [Mass/Vol] 7.4 g/dL 6.4-8.9 [facility] Serum or plasma albumin/glob ulin mass ratioOrdered By: Carlitos Nguyen on 04-25-2023 Albumin/Globulin [Mass ratio] 1.8 {ratio} [facility] Serum or plasma anion gap de terminationOrdered By: Carlitos Nguyen on 04-25-2023 Anion gap [Moles/Vol] 12.4 mmol/L 6.0-15.0 [facility] Serum or plasma high density lipoprotein (HDL) cholesterol measurementOrdered By: Carlitos Nguyen on 04-25-2023 Cholesterol in HDL [Mass/Vol] 55 mg/dL 23-92 [facility] Comment on above: HDL CHOL ATP-III CLA SSIFICATION Cardiovascular RiskHDL > or equal to 60 mg/dL LOWHDL < 40 mg/dL HIGH Serum or plasma total choles terol/high density lipoprotein (HDL) cholesterol mass ratOrdered By: Carlitos Nguyen on 04-25-2023 Cholesterol.total/Chol esterol in HDL [Mass ratio] 3.8 {ratio} <5.0 [facility] Sodium [Moles/volume] in Ser um or PlasmaOrdered By: Carlitos Nguyen on 04-25-2023 Sodium [Moles/Vol] 139 mmol/L 136-145 [facility] Triglyceride [Mass/volume] i n Serum or PlasmaOrdered By: Carlitos Nguyen on 04-25-2023 Triglyceride [Mass/Vol] 83 mg/dL 0-149 [facility] Comment on above: TRIG ATP III CLASSIF ICATIONTRIG less than 150 mg/dL NormalTRIG 150-199 mg/dL Borderline highTRIG 200-500 mg/dL High TRIG greater than 500 mg/dL Very highStandard traceable to the Center for Disease Conrtrol and Prevention (CDC) test method. Urea nitrogen [Mass/volume] in Serum or PlasmaOrdered By: Carlitos Nguyen on 04-25-2023 Urea nitrogen [Mass/Vol] 15 mg/dL 04-17 [facility] Tobacco Screening.on 023 Adult depression screening assessment No [facility] [address] DO Work Phone: Fall risk assessment a) No falls within the last year [facility] [address] DO Work Phone: Tobacco use status [facility]PH[facility] b) No [facility] [address] DO Work Phone: Office Visit (Cardiology)on [...] in adult Healthy Weight Tips; Status:Complete; Done: [id number] SocHx: Never a smoker Tobacco Use Screening; Status:Complete; Done: [id number] Patient Instructions Please bring all medicines, vitamins, [...] she did get a second opinion in [place], and no change in medication was suggested [...] sinus sometime (more content not included)... Normal [facility] Tobacco Screening.on 022 Tobacco use status [facility] b) No [facility] [facility] 250 DO Work Phone: Cardiovasc Arrhythmia Result son 07-31-2022 Cardiovasc Arrhythmia Results Reason For Visit MADYSON is here for the application of a [employer] monitor. Ordering Physician: Dr. Maza Diagnosis: abn TTT, dyspnea, syncope, autonomic orthostatic hypotension [facility] equipment agreement signed. MADYSON understands monitor is to be returned on: 08/14/22 Monitor number [id number] applied. Procedure Date I received for dictation [...] Appointments Date/TimeProviderSpecialt ySite 09/11/2022 09:30 Melodie Sylvester MHOtruznwewh[address] [place] 250 DO 10/13/2022 09:20 Annalee Russell MDCardiology[address] [place] [address] DO Signatures Electronically signed by : Annalee Maza MD; Aug 27 2022 10:31AM EST (Author) Reviewed by : Melodie Alcaraz MD; Aug 28 2022 10:26AM EST Normal [facility] Office Visit (Cardiology)on 07-21-2022 Follow-up visit Diagnoses/Problems [...] contain caffeine.; Status:Complete - Retrospective Authorization; Done: [id number] Begin or continue regular aerobic exercise. Gradually work up to at least 3 sessions of 30 minutes of exercise a week.; Status:Complete - Retrospective Authorization; Done: 21Jul2022 Diets that are low in carbohydrates and high in protein are very popular for weight loss.; Status:Complete - Retrospective Authorization; Done: [id number] Eat a low fat and low cholesterol diet.; Status:Complete - Retrospective Authorization; Done: [id number] Please bring all medicines, vitamins, and herbal [...] Chan Jiang in 1 week. I, Tammy Lujan [facility], am scribing for and in the presence [...] heart murmur and has been transferred to [facility] There is no family history [...] cardiac data (more content not included)... Normal [facility] Tobacco Screening.on 022 Fall risk assessment b) One or more fall s in the last year [facility] [employer] DO Work Phone: Tobacco use status CP b) No [facility] [employer] DO Work Phone: Office Visit (Cardiology)on 07-10-2022 [...] Confirmed - N/A AMA Intake updated by [employer] (INTRANET) on 2022-07-11 22:02 New Recipient: Annalee Maza Appointment Date: 2022-07-21 07:20 Autonomic orthostatic hypotension, Syncope, unspecified syncope type Changed: From To Midodrine HCl - 10 MG Oral Tablet TAKE 1 TABLET 3 TIMES DAILY Class 1 obesity with body mass index (BMI) of 31.0 to 31.9 in adult Avoid getting up or changing positions quickly.; Status:Complete; Done: [id number] Healthy Weight Tips; Status:Complete; Done: [id number] Some eating tips that can help you lose weight.; Status:Complete; Done: [id number] Dyspnea (786.09) (R06.00) Class 1 obesity with [...] from 6 (more content not included)... Normal [facility] Tobacco Screening.on 022 Tobacco use status [facility] b) No [facility] [facility] 250 DO Work Phone: COVID CepheidOrdered By: Daniele Pearce on 06-01-2022 SARS-CoV-2 (COVID-19) Ab IA Ql Negative Negative [facility] Comment on above: This is a duplicate [employer] Xpert Xpress CoV-2/Flu/RSV Plus RNA by RT-PCR result to be used for statistical tracking purpose only. SARS-CoV-2 (COVID-19) RNA PERFECTO+probe Ql (Unsp spec) [facility] Office Visit (Cardiology)on 05-18-2022 Follow-up visit [...] in adult Healthy Weight Tips; Status:Complete; Done: 43Zbr1691 Some eating tips that can help you lose weight.; Status:Complete; Done: 09Xww3755 Dyspnea, Syncope, unspecified syncope type Urine Test; Status:Active - Retrospective By Protocol Authorization; Requested for:[id number]; Palpitation Start: Atenolol 25 MG Oral Tablet; TAKE 1 TABLET DAILY Syncope, unspecified syncope type Tilt Table; Status:Hold For - Scheduling,Retrospective By Protocol Authorization; Requested for:[id number]; Patient Instructions Please bring all medicines, vitamins, [...] walking to the bathroom. She will see operations officer in the near future, she had her pulmonary function test which I reviewed, there is concern for chronic asthma, but no reactive airway disease. She has 3 dogs that she had, and 1 cat at home. She is not orthostatic. She is feeling palpitations quite a bit. Results of the pulmonary function test and a [employer] was reviewed. Also reviewed stress test and [...] 3.5 c (more content not included)... Normal [employer] Tobacco Screening.on 022 Tobacco use status [facility] b) No [facility] [facility] 250 DO Work Phone: No Panel Informationon 05-03 [facility] [facility] DO Work Phone: [facility] [facility] 250 DO Work Phone: Cardiovasc Arrhythmia Result son 03-28-2022 Cardiovasc Arrhythmia Results Reason For Visit Event Monitor: MADYSON is here for the application of a 30 day event monitor in office., Diagnosis: Palps, Dyspnea, Chest pain Ordering Physician: Enrollment sent to: [employer] Monitor number [id number] applied. Holter monitor printed and placed on Dr. Melodie Alcaraz MD desk to dictate. Procedure This is a 21-year-old with palpitations. [facility] [employer] was done for 30 days. Duration of monitoring was from 7 5 20-04/27/2022. During this timeframe there were 39 [...] (R06.00) Palpitation (785.1) (R00.2) Future Appointments Date/TimeProviderSpecialt [facility] 05/03/2022 10:00 María Elena Cesar MDCardiologySurgery [facility] 05/18/2022 09:15 Melodie Syvlester MDCardiology[address] [place] 250 DO Signatures Electronically signed by : Melodie Alcaraz MD; May 01 2022 7:56PM EST (Author) [facility] and C hemistry - challengeOrdered By: Melodie Alcaraz on 07-01-2022 Natriuretic peptide B (Bld) [Mass/Vol] 27.0 pg/mL 5-100 [facility] No Panel InformationOrdered By: Melodie Alcaraz on 03-24-2022 D-Dimer Quantitative (PE/DVT) < 200 ng/mL 0-243 [facility] Comment on above: The reference range [...] No Panel Informationon 03-24 0.70\S\0.70 Normal 0.45-5.33 [facility] DO Work Phone: Comment on above: PERFORMED BY:[place] [address] [place], [place] [id number] MEDICAL DIRECTOROFE ELLIS M.D. 0.99\S\0.99 Normal 0.61-1.12 [facility] Work Phone: 27.0\S\27.0 Normal 5-100 [facility] 250 DO Work Phone: Comment on above: PERFORMED BY:[address] [place], [place] [id number] MEDICAL DIRECTOROFE ELLIS M.D. < 200 Normal 0-243 [facility] DO Work Phone: Comment on [...] in hospitalized patients due to co-morbid conditions.PERFORMED BY:[facility], [place] [id number] MEDICAL DIRECTOROFE ELLIS M.D. TSH DL <= 0.005 mIU/L QnOrde red By: Melodie Alcaraz on 03-24-2022 TSH Qn 0.70 m[IU]/L 0.45-5.33 [facility] Thyroxine (T4) free [Mass/vo lume] in Serum or PlasmaOrdered By: Melodie Alcaraz on 03-24-2022 Free T4 [Mass/Vol] 0.99 ng/dL 0.61-1.12 [facility] Office Visit (Cardiology)on 03-23-2022 Follow-up visit [...] twin brother had to be taken to [facility], and has history of heart murmur. Patient [...] frequently pic (more content not included)... Normal [facility] PHQ-2 VITALSon 03-23-2022 Adult depression screening assessment No [facility] [facility] DO Work Phone: Fall risk assessment c) Not medically indicated [facility] [facility] DO Work Phone: Tobacco use status [facility] b) No [facility] [facility] DO Work Phone: ARMANI BY IFA WITH REFLEXon Nuclear Ab IF (S) [Titer] Negative Negative [facility] CCP ANTIBODY IGGon 2 Cyclic citrullinated peptide IgG Qn <15 <20 Units [facility] Cyclic citrullinated peptide IgG Qnon 01-26-2022 CCP Antibody IgG Qualitative Negative Negative [facility] Nuclear Ab IA Ql (S)on 01-26 ARMANI by EIA, Qual Negative Negative [facility] ARMANI BY IFA WITH REFLEXon Nuclear Ab IF (S) [Titer] Negative Normal Negative [facility] Comment on above: Order Comment: Jose Carlos oseguera Type: BLOOD SPECIMEN Ordering Facility: [facility] Address: [address] [place] [address] Result Comment: Anti -nuclear antibody test is used as an aid in diagnosis of systemic autoimmune diseases. Where positive and clinically warranted, follow-up using disease-specific testing is recommended. Low positive titers are not uncommon with advanced age, certain chronic infections, and malignancies among others. Test methodology: Indirect fluorescence immunoassay (IFA) using HEp-2 cells. Performed By: #### A NAIFR #### [facility] CLIA [id number] [address] [place] [address] [place] C-REACTIVE PROTEIN (CRP)on 0 01-25-2022 CRP [Mass/Vol] 0.4 mg/dL <0.9 mg/dL [facility] C1 ESTERASE INHIBITon 2021 C1 ESTERASE INHIBIT 26 mg/dL Normal 21-38 [facility] Comment on above: Order Comment: Jose Carlos oseguera Type: BLOOD SPECIMEN Ordering Facility: [facility] Address: [address] [place] [address] Result Comment: Perf ormed By: [employer] [address] [place] [address] Product Examiner: Brittni Moscoso MD Performed By: #### 1 6570-4, 84593-4, 49652-7, 33767-8, 28224-7, 64311-9, 65871-1, 24963-5 #### [facility] CLIA [id number] [address] [place] [address] [place] C2 COMPLEMENT BLDon 01-26-20 22 C2 COMPLEMENT 2.4 mg/dL Normal 1.6-4.0 [facility] Comment on above: Order Comment: Jose Carlos oseguera Type: BLOOD SPECIMEN Ordering Facility: [facility] Address: [address] [place], [place] [id number] Result Comment: INTE RPRETIVE INFORMATION: Complement Component 2 Decreased C2 levels may be associated with increased susceptibility to infection (especially pneumococcal infections), systemic lupus erythematosus-like disease, rashes, arthritis and nephritis, and with C1-Esterase deficiency. Increased C2 levels are associated with the acute phase response. This test was developed and its performance characteristics determined by [employer] It has not been cleared or approved by the [place] Food and Drug Administration. This test was performed in a CLIA certified laboratory and is intended for clinical purposes. Performed By: [employer] [address] [place] [address] Product Examiner: Brittni Moscoso MD Performed By: #### 1 6570-4, 40671-9, 10791-7, 04570-0, 42437-3, 64210-4, 21291-0, 35944-6 #### [facility] CLIA [id number] [address] [place] [address] [place] C3 COMPLEMENT BLDon 01-26-20 22 Complement C3 [Mass/Vol] 130 mg/dL 86 - 166 mg/dL [facility] C3 SerPl-mCncon 01-25-2022 Complement C3 [Mass/Vol] 130 mg/dL Normal 86-166 [facility] Comment on above: Order Comment: Jose Carlos oseguera Type: BLOOD SPECIMEN Ordering Facility: [facility] Address: [address] [place], [place] [address] Performed By: #### 1 6570-4, 07316-9, 96829-8, 88053-9, 98864-8, 48266-1, 74689-9, 08476-9 #### [facility] CLIA [id number] [address] [place] [address] [place] C4 COMPLEMENT BLDon 01-26-20 22 Complement C4 [Mass/Vol] 30 mg/dL 13 - 46 mg/dL [facility] C4 SerPl-mCncon 01-25-2022 Complement C4 [Mass/Vol] 30 mg/dL Normal 13-46 [facility] Comment on above: Order Comment: Speci men Type: BLOOD SPECIMEN Ordering Facility: [facility] Address: [address] [place] [address] Performed By: #### 1 6570-4, 45450-0, 31112-1, 65036-9, 02357-1, 51794-9, 70403-9, 79540-8 #### [facility] CLIA [id number] [address] [place] [address] [place] CBC panel Auto (Bld)on 01-25 Erythrocyte distribution width (RBC) [Ratio] 12.1 % Normal 11.5-15.0 [facility] Comment on above: Order Comment: Speci men Type: BLOOD SPECIMEN Ordering Facility: [facility] Address: [address] [place] [address] Performed By: #### 1 6570-4, 96428-3, 92124-8, 39940-9, 14570-1, 48977-8, 94447-0, 87168-8 #### [facility] CLIA [id number] [address] [place] [address] [place] Hematocrit (Bld) [Volume fraction] 42.6 % Normal 36.0-46.0 [facility] Comment on above: Order Comment: Speci men Type: BLOOD SPECIMEN Ordering Facility: [facility] Address: [address] [place] [address] Performed By: #### 1 6570-4, 76261-5, 77033-5, 49332-7, 68240-8, 64278-8, 24147-6, 05206-0 #### [facility] CLIA [id number] [address] [place] [address] [place] Hemoglobin (Bld) [Mass/Vol] 13.8 g/dL Normal 11.5-15.5 [facility] Comment on above: Order Comment: Speci men Type: BLOOD SPECIMEN Ordering Facility: [facility] Address: [address] [place] [address] Performed By: #### 1 6570-4, 14062-4, 20357-9, 95757-8, 75398-4, 37617-2, 83983-8, 02551-5 #### [facility] CLIA [id number] [address] [place] [address] MCH (RBC) [Entitic mass] 28.3 pg Normal 26.0-34.0 [facility] Comment on above: Order Comment: Speci men Type: BLOOD SPECIMEN Ordering Facility: [facility] Address: [address] [place] [address] Performed By: #### 1 6570-4, 78054-0, 45360-1, 66665-1, 86655-7, 32759-2, 19311-6, 62038-8 #### [facility] CLIA [id number] [address] [place] [address] [place] MCHC (RBC) [Mass/Vol] 32.4 g/dL Normal 30.5-36.0 [facility] Comment on above: Order Comment: Speci men Type: BLOOD SPECIMEN Ordering Facility: [facility] Address: [address] [place] [address] Performed By: #### 1 6570-4, 58040-8, 66700-4, 06312-4, 18863-8, 82092-7, 90053-3, 26201-9 #### [facility] CLIA [id number] [address] [place] [address] [place] MCV (RBC) [Entitic vol] 87.3 fL Normal 80.0-100.0 [facility] Comment on above: Order Comment: Speci men Type: BLOOD SPECIMEN Ordering Facility: [facility] Address: [address] [place] [address] Performed By: #### 1 6570-4, 96979-0, 00120-5, 70303-0, 94837-0, 27013-2, 22744-4, 00556-8 #### [facility] CLIA [id number] [address] [place] [address] [place] Nucleated RBC (Bld) [#/Vol] 10*3/uL Normal <0.01 [facility] Comment on above: Order Comment: Speci men Type: BLOOD SPECIMEN Ordering Facility: [facility] Address: [address] [place] [address] Performed By: #### 1 6570-4, 99780-2, 80469-9, 31207-7, 31941-6, 55570-9, 58714-4, 64580-1 #### [facility] CLIA [id number] [address] [place] [address] [place] Platelet mean volume (Bld) [Entitic vol] 10.3 fL Normal 9.0-12.7 [facility] Comment on above: Order Comment: Speci men Type: BLOOD SPECIMEN Ordering Facility: [facility] Address: [address] [place], [place] [address] Performed By: #### 1 6570-4, 75471-7, 25248-8, 03612-5, 77048-1, 28181-4, 07882-4, 53695-2 #### [facility] CLIA [id number] [address] [place] [address] [place] Platelets (Bld) [#/Vol] 213 10*3/uL Normal 150-400 [facility] Comment on above: Order Comment: Speci men Type: BLOOD SPECIMEN Ordering Facility: [facility] Address: [address] [place] [address] Performed By: #### 1 6570-4, 38750-5, 02790-1, 50703-1, 05723-7, 75560-3, 20264-1, 59436-9 #### [facility] CLIA [id number] [address] [place] [address] [place] RBC (Bld) [#/Vol] 4.88 10*6/uL Normal 3.90-5.20 [facility] Comment on above: Order Comment: Speci men Type: BLOOD SPECIMEN Ordering Facility: [facility] Address: [address] [place] [address] Performed By: #### 1 6570-4, 51805-7, 12961-8, 16084-9, 74588-5, 74536-3, 16014-9, 55720-9 #### [facility] CLIA [id number] [address] [place] [address] [place] WBC (Bld) [#/Vol] 4.77 10*3/uL Normal 3.70-11.00 [facility] Comment on above: Order Comment: Jose Carlos oseguera Type: BLOOD SPECIMEN Ordering Facility: [facility] Address: [address] [place] [address] Performed By: #### 1 6570-4, 28325-1, 29512-7, 81946-7, 09254-2, 81545-9, 61101-8, 19498-1 #### [facility] CLIA [id number] [address] [place] [address] [place] Erythrocyte distribution width (RBC) [Ratio] 12.1 % 11.5 - 15.0 % [facility] Hematocrit (Bld) [Volume fraction] 42.6 % 36.0 - 46.0 % [facility] Hemoglobin (Bld) [Mass/Vol] 13.8 g/dL 11.5 - 15.5 g/dL [facility] MCH (RBC) [Entitic mass] 28.3 pg 26.0 - 34.0 pg [facility] MCHC (RBC) [Mass/Vol] 32.4 g/dL 30.5 - 36.0 g/dL [facility] MCV (RBC) [Entitic vol] 87.3 fL 80.0 - 100.0 fL [facility] Nucleated RBC (Bld) [#/Vol] 10*3/uL <0.01 k/uL [facility] Platelet mean volume (Bld) [Entitic vol] 10.3 fL 9.0 - 12.7 fL [facility] Platelets (Bld) [#/Vol] 213 10*3/uL 150 - 400 k/uL [facility] RBC (Bld) [#/Vol] 4.88 10*6/uL 3.90 - 5.20 m/uL [facility] WBC (Bld) [#/Vol] 4.77 10*3/uL 3.70 - 11.00 k/uL [facility] CRP SerPl-mCncon 01-25-2022 CRP [Mass/Vol] 0.4 mg/dL Normal <0.9 [facility] Comment on above: Order Comment: Speci men Type: BLOOD SPECIMEN Ordering Facility: [facility] Address: [address] [place] [address] Performed By: #### 1 6570-4, 47464-5, 56386-4, 27114-3, 90088-7, 80976-3, 79704-2, 84762-3 #### [facility] CLIA [id number] [address] [place] [address] [place] Centromere Ab IF Ql (S)on Centromere Ab Qn (S) <0.2 Normal <1.0 [facility] Comment on above: Order Comment: Jose Carlos oseguera Type: BLOOD SPECIMEN Ordering Facility: [facility] Address: [address] [place] [address] Result Comment: Anti -centromere antibody is used as in aid in diagnosis of systemic sclerosis. Clinical correlation is required. Test Methodology: Multiplex flow immunoassay. Performed By: #### 1 6570-4, 64200-3, 35168-3, 03907-3, 26768-4, 63907-7, 84664-0, 85508-2 #### [facility] CLIA [id number] [address] [place] [address] [place] CENTROMERE AB QUAL Negative Normal Negative [facility] Comment on above: Order Comment: Jose Carlos oseguera Type: BLOOD SPECIMEN Ordering Facility: [facility] Address: [address] [place] [address] Performed By: #### 1 6570-4, 78300-3, 87141-5, 60599-4, 44433-3, 78554-1, 01969-5, 69985-9 #### [facility] CLIA [id number] [address] [place] [address] [place] Chromatin Ab Qnon 01-25-2022 CHROMATIN AB QUAL Negative Normal Negative [facility] Comment on above: Order Comment: Speci men Type: BLOOD SPECIMEN Ordering Facility: [facility] Address: [address] [place] [address] Performed By: #### 1 6570-4, 19317-9, 76605-6, 97140-2, 15018-4, 44345-8, 22210-4, 56906-0 #### [facility] CLIA [id number] [address] [place] [address] [place] Chromatin Ab SerPl-aCncon Chromatin Ab Qn <0.2 Normal <1.0 [facility] Comment on above: Order Comment: Speci men Type: BLOOD SPECIMEN Ordering Facility: [facility] Address: [address] [place] [address] Result Comment: Test Methodology: Multiplex flow immunoassay. Performed By: #### 1 6570-4, 12596-1, 90441-2, 85513-2, 14324-0, 43672-5, 84105-9, 56498-1 #### [facility] CLIA [id number] [address] [place] [address] [place] Comprehensive metabolic 2000 panelon 01-25-2022 Albumin [Mass/Vol] 4.5 g/dL 3.9 - 4.9 g/dL [facility] ALP [Catalytic activity/Vol] 65 U/L 34 - 123 U/L [facility] ALT [Catalytic activity/Vol] 14 U/L 7 - 38 U/L [facility] Anion gap [Moles/Vol] 11 mmol/L 9 - 18 mmol/L [facility] AST [Catalytic activity/Vol] 14 U/L 13 - 35 U/L [facility] Bilirubin [Mass/Vol] 0.3 mg/dL 0.2 - 1 .3 mg/dL [facility] Calcium [Mass/Vol] 9.5 mg/dL 8.5 - 10. 2 mg/dL [facility] Chloride [Moles/Vol] 105 mmol/L 97 - 10 5 mmol/L [facility] CO2 [Moles/Vol] 26 mmol/L 22 - 30 mmol/L [facility] Creatinine [Mass/Vol] 0.71 mg/dL 0.58 - 0.96 mg/dL [facility] Estimated Glomerular Filtration Rate 125 mL/min/1.73m >=60 mL/min/1.7 3m [facility] Glucose [Mass/Vol] 94 mg/dL 74 - 99 mg/dL [facility] Potassium [Moles/Vol] 4.6 mmol/L 3.7 - 5.1 mmol/L [facility] Protein [Mass/Vol] 7.2 g/dL 6.3 - 8.0 g/dL [facility] Sodium [Moles/Vol] 142 mmol/L 136 - 144 mmol/L [facility] Urea nitrogen [Mass/Vol] 8 mg/dL 7 - 21 mg/dL [facility] Albumin [Mass/Vol] 4.5 g/dL Normal 3.9-4.9 [facility] Comment on above: Order Comment: Speci men Type: BLOOD SPECIMEN Ordering Facility: [facility] Address: [address] [place] [address] Performed By: #### 1 6570-4, 81467-7, 64819-4, 66699-1, 92521-7, 45004-9, 39975-2, 38115-4 #### [facility] CLIA [id number] [address] [place] [address] OF [facility] ALP [Catalytic activity/Vol] 65 U/L Normal 34-123 [facility] Comment on above: Order Comment: Speci men Type: BLOOD SPECIMEN Ordering Facility: [facility] Address: [address] [place] [address] Performed By: #### 1 6570-4, 68694-6, 95787-2, 43341-5, 08533-0, 54286-2, 57047-0, 23035-4 #### [facility] CLIA [id number] [address] [place] [address] [place] ALT [Catalytic activity/Vol] 14 U/L Normal 7-38 [facility] Comment on above: Order Comment: Speci men Type: BLOOD SPECIMEN Ordering Facility: [facility] Address: [address] [place] [address] Performed By: #### 1 6570-4, 40569-7, 22315-8, 09779-0, 92431-1, 68887-5, 01450-1, 60885-3 #### [facility] CLIA [id number] [address] [place] [address] [place] Anion gap [Moles/Vol] 11 mmol/L Normal 9-18 [facility] Comment on above: Order Comment: Speci men Type: BLOOD SPECIMEN Ordering Facility: [facility] Address: [address] [place] [address] Performed By: #### 1 6570-4, 18648-0, 91204-3, 62045-6, 29266-3, 95802-4, 99371-2, 91948-7 #### [facility] CLIA [id number] [address] [place] [address] [place] AST [Catalytic activity/Vol] 14 U/L Normal 13-35 [facility] Comment on above: Order Comment: Speci men Type: BLOOD SPECIMEN Ordering Facility: [facility] Address: [address] [place] [address] Performed By: #### 1 6570-4, 52923-6, 24042-3, 23221-6, 01729-0, 66667-8, 51107-4, 27494-5 #### [facility] CLIA [id number] [address] [place] [address] [place] Bilirubin [Mass/Vol] 0.3 mg/dL Normal 0.2-1.3 [facility] Comment on above: Order Comment: Speci men Type: BLOOD SPECIMEN Ordering Facility: [facility] Address: [address] [place] [address] Performed By: #### 1 6570-4, 53042-4, 28218-2, 67666-8, 24220-6, 05329-8, 30276-9, 54538-9 #### [facility] CLIA [id number] [address] [place] [address] [place] Calcium [Mass/Vol] 9.5 mg/dL Normal 8.5-10.2 [facility] Comment on above: Order Comment: Speci men Type: BLOOD SPECIMEN Ordering Facility: [facility] Address: [address] [place] [address] Performed By: #### 1 6570-4, 62068-1, 65451-1, 15615-3, 89396-4, 16395-2, 82012-9, 12851-9 #### [facility] CLIA [id number] [address] [place] [address] [place] Chloride [Moles/Vol] 105 mmol/L Normal 97-105 [facility] Comment on above: Order Comment: Speci men Type: BLOOD SPECIMEN Ordering Facility: [facility] Address: [address] [place] [address] Performed By: #### 1 6570-4, 95927-9, 78719-9, 69353-5, 38477-5, 11433-5, 88423-1, 79221-7 #### [facility] CLIA [id number] [address] [place] [address] [place] CO2 [Moles/Vol] 26 mmol/L Normal 22-30 [facility] Comment on above: Order Comment: Speci men Type: BLOOD SPECIMEN Ordering Facility: [facility] Address: [address] [place] [address] Performed By: #### 1 6570-4, 93563-1, 25186-5, 55044-5, 78303-8, 88611-1, 50309-4, 95541-4 #### [facility] CLIA [id number] [address] [place] [address] [place] Creatinine [Mass/Vol] 0.71 mg/dL Normal 0.58-0.96 [facility] Comment on above: Order Comment: Jose Carlos oseguera Type: BLOOD SPECIMEN Ordering Facility: [facility] Address: [address] [place] [address] Performed By: #### 1 6570-4, 47833-1, 80126-4, 14640-1, 01949-6, 28784-5, 37220-5, 90999-7 #### [facility] CLIA [id number] [address] [place] [address] [place] ESTIMATED GLOMERULAR FILTRATION RATE 125 mL/min/1.73m??? Normal >=60 [facility] Comment on above: Order Comment: Jose Carlos oseguera Type: BLOOD SPECIMEN Ordering Facility: [facility] Address: [address] [place] [address] Result Comment: Francesca mated Glomerular Filtration Rate [...] actual GFR. Performed By: #### 1 6570-4, 63549-1, 53852-0, 06805-0, 77336-2, 04486-6, 25534-8, 90257-4 #### [facility] CLIA [id number] [address] [place] [address] [place] Glucose [Mass/Vol] 94 mg/dL Normal 74-99 [facility] Comment on above: Order Comment: Jose Carlos oseguera Type: BLOOD SPECIMEN Ordering Facility: [facility] Address: [address] [place] [address] Result Comment: The [place] [employer] (ADA) provides guidance for cutoff [...] Standards of Medical Care in Diabetes 2016, [place] [employer]. Diabetes Care. 2016.39(Suppl 1). Performed By: #### 1 6570-4, 86835-8, 54420-3, 59790-6, 53927-8, 09230-7, 24272-8, 96057-4 #### [facility] CLIA [id number] [address] [place] [address] [place] Potassium [Moles/Vol] 4.6 mmol/L Normal 3.7-5.1 [facility] Comment on above: Order Comment: Speci men Type: BLOOD SPECIMEN Ordering Facility: [facility] Address: [address] [place] [address] Performed By: #### 1 6570-4, 83148-9, 36058-0, 13809-4, 65093-2, 88725-9, 93476-9, 55805-2 #### [facility] CLIA [id number] [address] [place] [address] [place] Protein [Mass/Vol] 7.2 g/dL Normal 6.3-8.0 [facility] Comment on above: Order Comment: Speci men Type: BLOOD SPECIMEN Ordering Facility: [facility] Address: [address] [place] [address] Performed By: #### 1 6570-4, 24345-7, 32160-1, 16301-3, 21030-5, 86255-2, 50455-3, 88437-4 #### [facility] CLIA [id number] [address] [place] [address] [place] Sodium [Moles/Vol] 142 mmol/L Normal 136-144 [facility] Comment on above: Order Comment: Speci men Type: BLOOD SPECIMEN Ordering Facility: [facility] Address: [address] [place] [address] Performed By: #### 1 6570-4, 96797-2, 23096-1, 72012-8, 61124-6, 56664-0, 97421-6, 04228-9 #### [facility] CLIA [id number] [address] [place] [address] [place] Urea nitrogen [Mass/Vol] 8 mg/dL Normal 7-21 [facility] Comment on above: Order Comment: Speci men Type: BLOOD SPECIMEN Ordering Facility: [facility] Address: [address] [place] [address] Performed By: #### 1 6570-4, 21294-8, 92428-4, 22906-3, 49358-8, 38478-9, 88318-8, 43776-7 #### [facility] CLIA [id number] [address] [place] [address] [place] Cyclic citrullinated peptide IgG Qnon 01-25-2022 [facility] ANTIBODY IGG QUALITATIVE Negative Normal Negative [facility] Comment on above: Order Comment: Speci men Type: BLOOD SPECIMEN Ordering Facility: [facility] Address: [address] [place] [address] Performed By: #### 1 6570-4, 20357-1, 12356-7, 30180-0, 59000-3, 01753-1, 90638-8, 31393-2 #### [facility] CLIA [id number] [address] [place] [address] [place] JASON Jo1 Ab Ser-aCncon 2021 Yuly-1 extractable nuclear Ab Qn (S) <0.2 Normal <1.0 [facility] Comment on above: Order Comment: Speci men Type: BLOOD SPECIMEN Ordering Facility: [facility] Address: [address] [place] [address] Performed By: #### 1 6570-4, 75097-3, 62369-2, 96525-0, 88703-6, 36621-8, 71016-6, 68400-9 #### [facility] CLIA [id number] [address] [place] [address] OF [place] [employer] Ab Ser-aCncon 2021 Ribonucleoprotein extractable nuclear Ab Qn (S) <0.2 Normal <1.0 [facility] Comment on above: Order Comment: Speci men Type: BLOOD SPECIMEN Ordering Facility: [facility] Address: [address] [place] [address] Performed By: #### 1 6570-4, 69227-4, 89354-4, 15147-2, 38433-8, 57056-1, 01310-6, 20544-2 #### [facility] CLIA [id number] [address] [place] [address] OF [place] SM IgG Ser-aCncon 2021 Cota extractable nuclear IgG Qn (S) <0.2 Normal <1.0 [facility] Comment on above: Order Comment: Speci men Type: BLOOD SPECIMEN Ordering Facility: [facility] Address: [address] [place] [address] Performed By: #### 1 6570-4, 16386-2, 83630-0, 04475-8, 55753-2, 82958-0, 03028-0, 41354-3 #### [facility] CLIA [id number] [address] [place] [address] OF [place] SS-A Ab Ser-aCncon 01-25 Sjogrens syndrome-A extractable nuclear Ab Qn (S) <0.2 Normal <1.0 [facility] Comment on above: Order Comment: Speci men Type: BLOOD SPECIMEN Ordering Facility: [facility] Address: [address] [place] [address] Result Comment: Test Methodology: Multiplex flow immunoassay. Performed By: #### 1 6570-4, 05296-0, 15861-3, 35162-9, 73523-3, 64337-4, 21020-4, 94608-0 #### [facility] CLIA [id number] [address] [place] [address] [place] OF SANT[place] JASON SS-B Ab Ser-aCncon 01-25 Sjogrens syndrome-B extractable nuclear Ab Qn (S) <0.2 Normal <1.0 [facility] Comment on above: Order Comment: Speci men Type: BLOOD SPECIMEN Ordering Facility: [facility] Address: [address] [place] [address] Result Comment: Anti -SSB (anti-La) antibody is used as an aid in diagnosis of a variety of systemic autoimmune diseases, especially for Sjogren's syndrome and systemic lupus erythematosus. Clinical correlation is required. Test Methodology: Multiplex flow immunoassay. Performed By: #### 1 6570-4, 42393-0, 54223-4, 33763-1, 58438-9, 16588-6, 82033-9, 16478-9 #### [facility] CLIA [id number] [address] [place] [address] [place] ESR Westergren method (Bld) [Velocity]on 01-25-2022 ESR (Bld) [Velocity] 2 mm/h 0 - 20 mm/hr [facility] ESR (Bld) [Velocity] 2 mm/h Normal 0-20 [facility] Comment on above: Order Comment: Speci men Type: BLOOD SPECIMEN Ordering Facility: [facility] Address: [address] [place] [address] Performed By: #### 1 6570-4, 22072-1, 96787-1, 96975-7, 57021-7, 75047-3, 59025-4, 17123-4 #### [facility] CLIA [id number] [place] HBV core Ab Ser Qlon 022 HBV core Ab Ql (S) Negative Normal Negative [facility] Comment on above: Order Comment: Speci men Type: BLOOD SPECIMEN Ordering Facility: [facility] Address: [address] [place] [address] Result Comment: No e vidence of current or past infection with Hepatitis B virus. Should recent infection be suspected, repeat testing may be considered 3-4 weeks after this draw. Performed By: #### 1 6570-4, 66316-6, 16161-2, 47680-5, 29668-3, 49055-6, 96870-6, 45524-4 #### [facility] CLIA [id number] [address] [place] [address] [place] HBV surface Ab IA Ql (S)on 0 01-25-2022 HBV surface Ag Ql (S) Negative Normal Negative [facility] Comment on above: Order Comment: Speci men Type: BLOOD SPECIMEN Ordering Facility: [facility] Address: [address] [place], [place] [address] Performed By: #### 1 6570-4, 39384-2, 15991-2, 24446-8, 85209-4, 47927-6, 96347-6, 74181-9 #### [facility] CLIA [id number] [address] [place] [address] [place] HBV surface Ab Ser Qlon 05-0 HBV surface Ab Ql (S) Negative Normal Negative [facility] Comment on above: Order Comment: Speci [facility] Type: BLOOD SPECIMEN Ordering Facility: [facility] Address: [address] [place] [address] Result Comment: No e vidence of current or past infection with Hepatitis B virus. Should recent infection be suspected, repeat testing may be considered 3-4 weeks after this draw. Performed By: #### 1 6570-4, 25143-7, 27158-2, 38776-5, 84661-2, 99755-5, 20267-7, 57017-6 #### [facility] CLIA [id number] [address] [place] [address] [place] HCV Ab Ser Qlon 01-25-2022 HCV Ab Ql (S) Negative Normal Negative [facility] Comment on above: Order Comment: Jose Carlos oseguera Type: BLOOD SPECIMEN Ordering Facility: [facility] Address: [address] [place] [address] Result Comment: The result suggests no evidence of active infection with Hepatitis C virus. Should recent infection be suspected, repeat testing may be considered 4-6 weeks after this draw. Performed By: #### 1 6570-4, 16514-8, 88421-0, 09623-4, 01114-3, 05727-3, 44609-1, 82121-7 #### [facility] CLIA [id number] [address] [place] [address] [place] Yuly-1 extractable nuclear Ab Qn (S)on 01-25-2022 YULY 1 ANTIBODY QUAL Negative Normal Negative [facility] Comment on above: Order Comment: Jose Carlos [facility] Type: BLOOD SPECIMEN Ordering Facility: [facility] Address: [address] [place] [address] Result Comment: Anti -YULY-1 antibody is used as an aid in diagnosis of polymyositis and dermatomyositis especially with pulmonary involvement. A negative result cannot rule out polymyositis or dermatomyositis. Clinical correlation is required. Test Methodology: Multiplex flow immunoassay. Performed By: #### 1 6570-4, 19248-1, 96082-8, 58660-0, 59686-2, 07542-3, 18501-5, 00936-6 #### [facility] CLIA [id number] [address] [place] [address] [place] Nuclear Ab IA Ql (S)on 01-25 ARMANI BY EIA, QUAL Negative Normal Negative [facility] Comment on above: Order Comment: Jose Carlos [facility] Type: BLOOD SPECIMEN Ordering Facility: [facility] Address: [address] [place] [address] Result Comment: The qualitative antinuclear antibody screen test performed using enzyme immunoassay including the following antigens: dsDNA, histones, SS-A, SS-B, Sm, Sm/FOCUS PULLER, Scl-70, Yuly-1, and centromeric antigens. Performed By: #### 1 6570-4, 39398-8, 52881-7, 32853-8, 12867-4, 53208-9, 52537-4, 46251-4 #### [facility] CLIA [id number] [address] [place] [address] [place] RHEUMATOID FACTOR BLon 01-25 Rheumatoid factor Qn [IU]/mL <16 IU/mL [facility] Rheumatoid factor Qn [IU]/mL Normal <16 [facility] Comment on above: Order Comment: Speci men Type: BLOOD SPECIMEN Ordering Facility: [facility] Address: [address] [place] [address] Performed By: #### 1 6570-4, 53667-2, 81978-7, 27337-3, 78544-4, 25951-8, 09358-2, 84604-9 #### [facility] CLIA [id number] [address] [place] [address] [place] Ribonucleoprotein extractabl e nuclear Ab Qn (S)on 01-25-2022 ANTI-FOCUS PULLER QUAL Negative Normal Negative [facility] Comment on above: Order Comment: Speci men Type: BLOOD SPECIMEN Ordering Facility: [facility] Address: [address] [place] [address] Performed By: #### 1 6570-4, 07305-7, 09695-3, 77660-9, 20001-9, 76480-0, 86490-8, 79645-6 #### [facility] CLIA [id number] [address] [place] [address] [place] RIBOSOMAL FOCUS PULLER QUAL Negative Normal Negative [facility] Comment on above: Order Comment: Speci men Type: BLOOD SPECIMEN Ordering Facility: [facility] Address: [address] [place] [address] Result Comment: Anti -Ribosomal RNA (Ribosomal P) antibody is used as an aid in diagnosis of systemic autoimmune diseases especially systemic lupus erythematosus and mixed connective tissue disease. Cross-reactivity with Anti-cota antibody is not uncommon. Clinical correlation is required. Test Methodology: Multiplex flow immunoassay. Performed By: #### 1 6570-4, 53127-4, 02614-0, 86563-6, 65804-3, 40634-0, 51444-6, 50527-4 #### [facility] CLIA [id number] [address] [place] [address] [place] SCL-70 extractable nuclear I gG IA Qn (S)on 01-25-2022 SCLERODERMA AB QUAL Negative Normal Negative [facility] Comment on above: Order Comment: Speci men Type: BLOOD SPECIMEN Ordering Facility: [facility] Address: [address] [place] [address] Performed By: #### 1 6570-4, 16746-2, 72604-8, 06178-9, 81130-1, 73356-0, 77766-8, 40832-6 #### [facility] CLIA [id number] [address] [place] [address] SCLERODERMA IGG AB <0.2 Normal <1.0 [facility] Comment on above: Order Comment: Speci men Type: BLOOD SPECIMEN Ordering Facility: [facility] Address: [address] [place] [address] Result Comment: Scl- 70/Scleroderma antibody test is used as an aid in diagnosis of systemic sclerosis especially the diffuse cutaneous form. A negative result cannot rule out systemic sclerosis. The final interpretation should consider clinical picture and other test results such as anti-centromere antibody. Test Methodology: Multiplex flow immunoassay. Performed By: #### 1 6570-4, 62132-5, 22651-3, 88184-7, 39502-1, 73971-3, 73681-6, 96908-0 #### [facility] CLIA [id number] [address] [place] [address] [place] Sjogrens syndrome-A extracta ble nuclear Ab Qn (S)on 01-25-2022 SSA ANTIBODY QUAL Negative Normal Negative [facility] Comment on above: Order Comment: Speci men Type: BLOOD SPECIMEN Ordering Facility: [facility] Address: [address] [place] [address] Performed By: #### 1 6570-4, 80868-9, 79861-2, 14084-2, 38558-1, 54334-2, 25227-0, 69298-7 #### [facility] CLIA [id number] [address] [place] [address] [place] Sjogrens syndrome-B extracta ble nuclear Ab Qn (S)on 01-25-2022 SSB ANTIBODY QUAL Negative Normal Negative [facility] Comment on above: Order Comment: Speci ana rosa Type: BLOOD SPECIMEN Ordering Facility: [facility] Address: [address] [place] [address] Performed By: #### 1 6570-4, 96350-6, 58531-6, 20348-9, 98668-0, 80104-3, 83637-5, 70820-1 #### [facility] CLIA [id number] [address] [place] [address] [place] Cota extractable nuclear Ig G Qn (S)on 01-25-2022 SM ANTIBODY QUAL Negative Normal Negative [facility] Comment on above: Order Comment: Speci [facility] Type: BLOOD SPECIMEN Ordering Facility: [facility] Address: [address] [place] [address] Result Comment: Anti -Sm (Cota) antibody is used as an aid in diagnosis of systemic lupus erythematosus and its presence is associated with renal disease. A negative result cannot rule out systemic lupus erythematosus. Clinical correlation is required. Test Methodology: Multiplex flow immunoassay. Performed By: #### 1 6570-4, 73493-0, 97773-4, 64180-0, 07743-0, 41685-7, 91720-9, 50175-5 #### [facility] CLIA [id number] [address] [place] [address] [place] cCP IgG SerPl-aCncon 04- 022 Cyclic citrullinated peptide IgG Qn <15 Normal <20 [facility] Comment on above: Order Comment: Speci men Type: BLOOD SPECIMEN Ordering Facility: [facility] Address: [address] [place] [address] Performed By: #### 1 6570-4, 63141-6, 92410-3, 91560-9, 50522-4, 73917-0, 12719-6, 57376-9 #### [facility] CLIA [id number] [address] [place] [address] [place] XR ankle LT min 3V*on 2021 XR ankle LT min 3V* [facility] [employer] Other XR ankle LT min 3V* [facility] [employer] Other XR ankle LT min 3V* [address] [place] [address] [employer] Other XR ankle LT min 3V* [place] [address] [employer] Other XR ankle LT min 3V* [facility] [employer] Other XR ankle LT min 3V* Signed [employer] Other XR ankle LT min 3V* Patient: Madyson Schmid MR#: [id number] [employer] Other XR ankle LT min 3V* : 2000 Acct:[id number] [employer] Other XR ankle LT min 3V* Age/Sex: 20 / F ADM Date: 10/10/21 [employer] Other XR ankle LT min 3V* Loc: XDUCLY Room: pe: REG CLI [employer] Other XR ankle LT min 3V* Attending Dr: Christina GONZALEZ [employer] Other XR ankle LT min 3V* Ordering Provider: CARLOS Santos [employer] Other XR ankle LT min 3V* Date of Service: 10/10/21 [employer] Other XR ankle LT min 3V* XR/XR ankle LT min 3V*: Acute left ankle pain [employer] Other XR ankle LT min 3V* Copies to: CARLOS Beckman [employer] Other XR ankle LT min 3V* Left ankle 10/10/2021. [employer] Other XR ankle LT min 3V* CLINICAL DATA: Left ankle pain after twisting injury. [employer] Other XR ankle LT min 3V* FINDINGS: 3 views of the left ankle were obtained. [employer] Other XR ankle LT min 3V* No acute fracture or dislocation is identified. No other bony abnormality is seen. Anterolateral [employer] Other XR ankle LT min 3V* soft tissue swelling is noted. [employer] Other XR ankle LT min 3V* X R/XR ankle LT min 3V* [employer] Other XR ankle LT min 3V* IMPRESSION: Soft tis cody swelling. No acute bony abnormality. [employer] Other XR ankle LT min 3V* Impression dictated by: Erick Cueto Jr., M.D.10/10/2021 4:24 PM [employer] Other XR ankle LT min 3V* Dictation Location: [place] [address] [employer] Other XR ankle LT min 3V* Transcribed By: PWS 10/10/[address] [facility] [employer] Other XR ankle LT min 3V* Dictated By: Erick Cueto Jr, MD 10/10/21 1621 [employer] [facility] [employer] Other XR ankle LT min 3V* Signed By: [employer] Other XR ankle LT min 3V* 10/10/21 1624 No rt [employer] Other Vital Signs Date Time Vital Sign Value Performing Clinician Facility 10-15-2024 16:11-0500 Body mass index (BMI) [Ratio] 38.94 kg/m2 Osei Helena DO Work Phone: [facility] 10-15-2024 16:11-0500 Body weight 106.14 kg Osei Helena DO Work Phone: [facility] 10-15-2024 16:11-0500 Diastolic blood pressure 64 mm[Hg] Osei Helena DO Work Phone: [facility] 10-15-2024 16:11-0500 Systolic blood pressure 118 mm[Hg] Osei Helena DO Work Phone: [facility] 10-02-2024 11:43-0500 Body mass index (BMI) [Ratio] 38.44 kg/m2 Osei Helena DO Work Phone: [facility] 10-02-2024 11:43-0500 Body weight 104.78 kg Osei Helena DO Work Phone: [facility] 10-02-2024 11:43-0500 Diastolic blood pressure 72 mm[Hg] Osei Helena DO Work Phone: [facility] 10-02-2024 11:43-0500 Systolic blood pressure 118 mm[Hg] Osei Helena DO Work Phone: [facility] 09-18-2024 10:52-0500 Body mass index (BMI) [Ratio] 38.74 kg/m2 Osei Helena DO Work Phone: [facility] 09-18-2024 10:52-0500 Body weight 105.6 kg Osei Helena DO Work Phone: [facility] 09-18-2024 10:52-0500 Diastolic blood pressure 68 mm[Hg] Osei Helena DO Work Phone: [facility] 09-18-2024 10:52-0500 Systolic blood pressure 118 mm[Hg] Osei Helena DO Work Phone: [facility] 09-03-2024 15:21-0500 Body mass index (BMI) [Ratio] 37.44 kg/m2 Osei Helena DO Work Phone: [facility] 09-03-2024 15:21-0500 Body weight 102.06 kg Osei Helena DO Work Phone: [facility] 09-03-2024 15:21-0500 Diastolic blood pressure 68 mm[Hg] Osei Helena DO Work Phone: [facility] 09-03-2024 15:21-0500 Systolic blood pressure 120 mm[Hg] Osei Helena DO Work Phone: [facility] 08-27-2024 13:08-0500 Body height 165.1 cm Camilla Hemmer PA Work Phone: [facility] 08-27-2024 13:08-0500 Body mass index (BMI) [Ratio] 38.11 kg/m2 Camilla Hemmer PA Work Phone: [facility] 08-27-2024 13:08-0500 Body weight 103.87 kg Camilla Hemmer PA Work Phone: [facility] 08-27-2024 13:08-0500 Diastolic blood pressure 72 mm[Hg] Camilla Hemmer PA Work Phone: [facility] 08-27-2024 13:08-0500 Heart rate 92 /min Camilla Hemmer PA Work Phone: [facility] 08-27-2024 13:08-0500 Respiratory rate 16 /min Camillaslava Garcia PA Work Phone: [facility] 08-27-2024 13:08-0500 SaO2% (BldA) [Mass fraction] 98 % Camillaslava Garcia PA Work Phone: [facility] 08-27-2024 13:08-0500 Systolic blood pressure 118 mm[Hg] Camilla Radha PA Work Phone: [facility] 08-13-2024 09:22-0500 Body height 165.1 cm Hammad Hatch MD Work Phone: [facility] 08-13-2024 09:22-0500 Body mass index (BMI) [Ratio] 36.91 kg/m2 Hammad Hatch MD Work Phone: [facility] 08-13-2024 09:22-0500 Body weight 100.61 kg Hammad Hatch MD Work Phone: [facility] 08-05-2024 09:05-0500 Body mass index (BMI) [Ratio] 36.44 kg/m2 Flori Louise PA Work Phone: [facility] 08-05-2024 09:05-0500 Body weight 99.34 kg Flori Tsaile PA Work Phone: [facility] 08-05-2024 09:05-0500 Diastolic blood pressure 68 mm[Hg] Flori Louise PA Work Phone: [facility] 08-05-2024 09:05-0500 Systolic blood pressure 110 mm[Hg] Flori Louise PA Work Phone: [facility] 07-03-2024 14:41-0400 Body mass index (BMI) [Ratio] 35.65 kg/m2 Flori Louise PA Work Phone: [facility] 07-03-2024 14:41-0400 Body weight 97.18 kg Flori Tsaile PA Work Phone: [facility] 07-03-2024 14:41-0400 Diastolic blood pressure 64 mm[Hg] Flori Louise PA Work Phone: [facility] 07-03-2024 14:41-0400 Systolic blood pressure 116 mm[Hg] Flori Acevedoey PA Work Phone: [facility] 06-04-2024 15:53-0400 Body mass index (BMI) [Ratio] 35.36 kg/m2 Osei Helena DO Work Phone: [facility] 06-04-2024 15:53-0400 Body weight 96.39 kg Soei Helena DO Work Phone: [facility] 06-04-2024 15:53-0400 Diastolic blood pressure 70 mm[Hg] Osei Helena DO Work Phone: [facility] 06-04-2024 15:53-0400 Systolic blood pressure 126 mm[Hg] Osei Helena DO Work Phone: [facility] 05-23-2024 09:35-0400 Body mass index (BMI) [Ratio] 35.01 kg/m2 Nom Nurse [facility] 05-23-2024 09:35-0400 Body weight 95.44 kg [facility] Nurse [facility] 05-20-2024 09:37-0400 Body height 165.1 cm Camilla Hemmer PA Work Phone: [facility] 05-20-2024 09:37-0400 Body mass index (BMI) [Ratio] 34.98 kg/m2 Camilla Hemmer PA Work Phone: [facility] 05-20-2024 09:37-0400 Body weight 95.35 kg Camilla Hemmer PA Work Phone: [facility] 05-20-2024 09:37-0400 Diastolic blood pressure 76 mm[Hg] Camilla Hemmer PA Work Phone: [facility] 05-20-2024 09:37-0400 Heart rate 87 /min Camilla Hemmer PA Work Phone: [facility] 05-20-2024 09:37-0400 Respiratory rate 16 /min Camilla Hemmer PA Work Phone: [facility] 05-20-2024 09:37-0400 SaO2% (BldA) [Mass fraction] 98 % Camilla Garcia PA Work Phone: [facility] 05-20-2024 09:37-0400 Systolic blood pressure 108 mm[Hg] Camilla Garcia PA Work Phone: [facility] 11-30-2023 09:33-0500 Body height 165.1 cm Jyoti Noble PA-C Work Phone: [facility] 11-30-2023 09:33-0500 Body weight 92.99 kg Jyoti Noble PA-C Work Phone: [facility] 11-30-2023 09:33-0500 Diastolic blood pressure 79 mm[Hg] Jytoi Noble PA-C Work Phone: [facility] 11-30-2023 09:33-0500 Heart rate 84 /min Jyoti Noble PA-C Work Phone: [facility] 11-30-2023 09:33-0500 SaO2% (BldA) [Mass fraction] 96 % Jyoti Noble PA-C Work Phone: [facility] 11-30-2023 09:33-0500 Systolic blood pressure 118 mm[Hg] Jyoti Noble PA-C Work Phone: [facility] 06-13-2023 12:36-0400 Body height 165.1 cm Ibis Renteria Work Phone: [facility] DO Work Phone: 06-13-2023 12:36-0400 Body mass index (BMI) [Ratio] 33.28 kg/m2 Ibis Renteria Work [facility]: [facility] 600 DO Work Phone: 06-13-2023 12:36-0400 Body surface area Derived from formula 1.98 m2 Ibis Renteria Work Phone: [facility] 600 DO Work Phone: 06-13-2023 12:36-0400 Body weight 90.72 kg Ibis A Myra Work Phone: [facility] 600 DO Work Phone: 06-13-2023 12:36-0400 Diastolic blood pressure 80 mm[Hg] Ibis A Myra Work Phone: [facility] 600 DO Work Phone: 06-13-2023 12:36-0400 Heart rate 76 /min Ibis A Myra Work Phone: [facility] 600 DO Work Phone: 06-13-2023 12:36-0400 Systolic blood pressure 116 mm[Hg] Ibis A Myra Work Phone: [facility] 600 DO Work Phone: 06-08-2023 21:50-0400 Diastolic blood pressure 59 mm[Hg] SCISSORS GRINDER-C Ibis Myra Work Phone: [facility] 06-08-2023 21:50-0400 Heart rate 82 /min SCISSORS GRINDER-C Ibis Myra Work Phone: [facility] 06-08-2023 21:50-0400 Respiratory rate 18 /min SCISS[employer] GRINDER-C Ibis Myra Work Phone: [facility] 06-08-2023 21:50-0400 SaO2% (BldA) [Mass fraction] 99 % SCISSORS GRINDER-C Ibis Myra Work Phone: [facility] 06-08-2023 21:50-0400 Systolic blood pressure 115 mm[Hg] SCISSORS GRINDER-C Ibis Myra Work Phone: [facility] 06-08-2023 16:35-0400 Body height 165.1 cm SCISSORS GRINDER-C Ibis Myra Work Phone: [facility] 06-08-2023 16:35-0400 Body temperature 97.8 [degF] SCISSORS GRINDER-C Ibis Myra Work Phone: [facility] 06-08-2023 16:35-0400 Body weight 91.6 kg SCISSORS GRINDER-C Ibis Myra Work Phone: [facility] 12-28-2022 15:00-0400 Body weight 89.36 kg Irvin Hanna MD Work Phone: [facility] 12-28-2022 15:00-0400 Diastolic blood pressure 86 mm[Hg] Irvin Hanna MD Work Phone: [facility] 12-28-2022 15:00-0400 Heart rate 79 /min Irvin Hanna MD Work Phone: [facility] 12-28-2022 15:00-0400 Respiratory rate 16 /min Irvin Hanna MD Work Phone: [facility] 12-28-2022 15:00-0400 Systolic blood pressure 119 mm[Hg] Irvin Hanna MD Work Phone: [facility] 10-13-2022 09:35-0500 Body height 165.1 cm Ibis Rhonda Myra Work Phone: [facility] 320 DO Work Phone: 10-13-2022 09:35-0500 Body mass index (BMI) [Ratio] 33.45 kg/m2 Ibis A Myra Work Phone: [facility] 320 DO Work Phone: 10-13-2022 09:35-0500 Body surface area Derived from formula 1.98 m2 Ibis A Myra Work Phone: [facility] 320 DO Work Phone: 10-13-2022 09:35-0500 Body weight 91.17 kg Ibis A Myra Work Phone: [facility] 320 DO Work Phone: 10-13-2022 09:35-0500 Diastolic blood pressure 70 mm[Hg] Ibis A Myra Work Phone: [facility] 320 DO Work Phone: 10-13-2022 09:35-0500 Heart rate 76 /min Ibis A Myra Work Phone: [facility] 320 DO Work Phone: 10-13-2022 09:35-0500 Systolic blood pressure 102 mm[Hg] Ibis A Myra Work Phone: [facility] 320 DO Work Phone: 09-11-2022 09:58-0500 Diastolic blood pressure 82 mm[Hg] Ibis A Myra Work Phone: [facility] 250 DO Work Phone: 09-11-2022 09:58-0500 Diastolic blood pressure 80 mm[Hg] Ibis A Myra Work Phone: [facility] 250 DO Work Phone: 09-11-2022 09:58-0500 Systolic blood pressure 112 mm[Hg] Ibis A Myra Work Phone: [facility] 250 DO Work Phone: 09-11-2022 09:58-0500 Systolic blood pressure 108 mm[Hg] Ibis A Myra Work Phone: [facility] 250 DO Work Phone: 09-11-2022 08:57-0500 Body height 165.1 cm Ibis A Myra Work Phone: [facility] 250 DO Work Phone: 09-11-2022 08:57-0500 Body mass index (BMI) [Ratio] 32.95 kg/m2 Ibis A Myra Work Phone: [facility] 250 DO Work Phone: 09-11-2022 08:57-0500 Body surface area Derived from formula 1.97 m2 Ibis A Myra Work Phone: [facility] 250 DO Work Phone: 09-11-2022 08:57-0500 Body weight 89.81 kg Ibis A Myra Work Phone: [facility] 250 DO Work Phone: 09-11-2022 08:57-0500 Diastolic blood pressure 68 mm[Hg] Ibis A Myra Work Phone: [facility] 250 DO Work Phone: 09-11-2022 08:57-0500 Heart rate 74 /min Ibis A Myra Work Phone: [facility] 250 DO Work Phone: 09-11-2022 08:57-0500 Systolic blood pressure 102 mm[Hg] Ibis A Myra Work Phone: [facility] 250 DO Work Phone: 07-31-2022 10:14-0500 Body weight 89.81 kg Irvin Hanna MD Work Phone: [facility] 07-31-2022 10:14-0500 Diastolic blood pressure 71 mm[Hg] Irvin Hanna MD Work Phone: [facility] 07-31-2022 10:14-0500 Heart rate 92 /min Irvin Hanna MD Work Phone: [facility] 07-31-2022 10:14-0500 Systolic blood pressure 109 mm[Hg] Irvin Hanna MD Work Phone: [facility] 07-21-2022 07:27-0400 Body height 165.1 cm Ibis A Myra Work Phone: [facility] 320 DO Work Phone: 07-21-2022 07:27-0400 Body mass index (BMI) [Ratio] 33.45 kg/m2 Ibis A Myra Work Phone: [facility] 320 DO Work Phone: 07-21-2022 07:27-0400 Body surface area Derived from formula 1.98 m2 Ibis A Myra Work Phone: [facility] 320 DO Work Phone: 07-21-2022 07:27-0400 Body weight 91.17 kg Ibis A Myra Work Phone: [facility] 320 DO Work Phone: 07-21-2022 07:27-0400 Diastolic blood pressure 72 mm[Hg] Ibis A Myra Work Phone: [facility] 320 DO Work Phone: 07-21-2022 07:27-0400 Heart rate 64 /min Ibis A Myra Work Phone: [facility] 320 DO Work Phone: 07-21-2022 07:27-0400 Systolic blood pressure 106 mm[Hg] Ibis A Myra Work Phone: [facility] 320 DO Work Phone: 07-10-2022 10:45-0400 Body height 165.1 cm Ibis A Myra Work Phone: [facility] 250 DO Work Phone: 07-10-2022 10:45-0400 Body mass index (BMI) [Ratio] 32.95 kg/m2 Ibis A Myra Work Phone: [facility] 250 DO Work Phone: 07-10-2022 10:45-0400 Body surface area Derived from formula 1.97 m2 Ibis A Myra Work Phone: [facility] 250 DO Work Phone: 07-10-2022 10:45-0400 Body weight 89.81 kg Ibis A Myra Work Phone: [facility] 250 DO Work Phone: 07-10-2022 10:45-0400 Diastolic blood pressure 70 mm[Hg] Ibis A Myra Work Phone: [facility] 250 DO Work Phone: 07-10-2022 10:45-0400 Heart rate 76 /min Ibis A Myra Work Phone: [facility] 250 DO Work Phone: 07-10-2022 10:45-0400 Systolic blood pressure 104 mm[Hg] Ibis A Myra Work Phone: [facility] 250 DO Work Phone: 06-01-2022 11:36-0400 Body height 165.1 cm SCISSORS GRINDER-C Ibis Myra Work Phone: [facility] 06-01-2022 11:36-0400 Body temperature 100 [degF] SCISSORS GRINDER-C Ibis Myra Work Phone: [facility] 06-01-2022 11:36-0400 Body weight 88.4 kg SCISSORS GRINDER-C Ibis Myra Work Phone: [facility] 06-01-2022 11:36-0400 Diastolic blood pressure 68 mm[Hg] SCISSORS GRINDER-C Ibis Myra Work Phone: [facility] 06-01-2022 11:36-0400 Heart rate 99 /min SCISSORS GRINDER-C Ibis Myra Work Phone: [facility] 06-01-2022 11:36-0400 Respiratory rate 18 /min SCISSORS GRINDER-C Ibis Myra Work Phone: [facility] 06-01-2022 11:36-0400 SaO2% (BldA) [Mass fraction] 97 % SCISSORS GRINDER-C Ibis Myra Work Phone: [facility] 06-01-2022 11:36-0400 Systolic blood pressure 121 mm[Hg] SCISSORS GRINDER-C Ibis Myra Work Phone: [facility] 05-18-2022 09:42-0400 Body height 165.1 cm Ibis A Myra Work Phone: [facility] 250 DO Work Phone: 05-18-2022 09:42-0400 Body mass index (BMI) [Ratio] 31.95 kg/m2 Ibis A Myra Work Phone: [facility] 250 DO Work Phone: 05-18-2022 09:42-0400 Body surface area Derived from formula 1.94 m2 Ibis A Myra Work Phone: [facility] 250 DO Work Phone: 05-18-2022 09:42-0400 Body weight 87.09 kg Ibis A Myra Work Phone: [facility] 250 DO Work Phone: 05-18-2022 09:42-0400 Diastolic blood pressure 74 mm[Hg] Ibis A Myra Work Phone: [facility] 250 DO Work Phone: 05-18-2022 09:42-0400 Heart rate 72 /min Ibis A Myra Work Phone: [facility] 250 DO Work Phone: 05-18-2022 09:42-0400 Systolic blood pressure 102 mm[Hg] Ibis A Myra Work Phone: [facility] 250 DO Work Phone: 03-23-2022 09:11-0400 Diastolic blood pressure 80 mm[Hg] Iibs A Myra Work Phone: [facility] 250 DO Work Phone: 03-23-2022 09:11-0400 Systolic blood pressure 110 mm[Hg] Ibis A Myra Work Phone: [facility] 250 DO Work Phone: 03-23-2022 09:06-0400 Body height 166.37 cm Ibis A Myra Work Phone: [facility] 250 DO Work Phone: 03-23-2022 09:06-0400 Body mass index (BMI) [Ratio] 31.3 kg/m2 Ibis A Myra Work Phone: [facility] 250 DO Work Phone: 03-23-2022 09:06-0400 Body surface area Derived from formula 1.95 m2 Ibis A Myra Work Phone: [facility] 250 DO Work Phone: 03-23-2022 09:06-0400 Body weight 86.64 kg Ibis A Myra Work Phone: [facility] 250 DO Work Phone: 03-23-2022 09:06-0400 Diastolic blood pressure 76 mm[Hg] Ibis A Myra Work Phone: [facility] 250 DO Work Phone: 03-23-2022 09:06-0400 Heart rate 66 /min Ibis Arenasncer Work Phone: [facility] 250 DO Work Phone: 03-23-2022 09:06-0400 Systolic blood pressure 118 mm[Hg] Ibis Arenasncer Work Phone: [facility] 250 DO Work Phone: 01-25-2022 08:16-0400 Body height 165.1 cm Irvin Hanna MD Work Phone: [facility] 01-25-2022 08:16-0400 Body weight 86.36 kg Irvin Hanna MD Work Phone: [facility] 01-25-2022 08:16-0400 Diastolic blood pressure 83 mm[Hg] Irvin Hanna MD Work Phone: [facility] 01-25-2022 08:16-0400 Heart rate 71 /min Irvin Hanna MD Work Phone: [facility] 01-25-2022 08:16-0400 Systolic blood pressure 116 mm[Hg] Irvin Hanna MD Work Phone: [facility] 01-10-2022 12:45-0400 Body height 165.1 cm Ok Mckeon Other [employer] [facility] [employer] Other 01-10-2022 12:45-0400 Body mass index (BMI) [Ratio] 31.61 kg/m2 Ok Mckeon Other [employer] Other 01-10-2022 12:45-0400 Body temperature 97.8 [degF] Ok Mckeon Other [employer] Other 01-10-2022 12:45-0400 Body weight 86.18 kg Ok Mckeon Other [employer] Other 01-10-2022 12:45-0400 Diastolic blood pressure 80 mm[Hg] Ok Mckeon Other [employer] Other 01-10-2022 12:45-0400 SaO2% (BldA) [Mass fraction] 96 % Ok Mckeon Other [employer] Other 01-10-2022 12:45-0400 Systolic blood pressure 120 mm[Hg] Ok Christyreelaine Other [employer] Other 10-10-2021 15:50-0500 Body height 165.1 cm Christina Lambmond Other [employer] Other 10-10-2021 15:50-0500 Body mass index (BMI) [Ratio] 31.61 kg/m2 Christina Lambmond Other [employer] Other 10-10-2021 15:50-0500 Body temperature 97 [degF] Christina Lambmond Other [employer] Other 10-10-2021 15:50-0500 Body weight 86.18 kg Christina Lambmond Other [employer] Other 10-10-2021 15:50-0500 Diastolic blood pressure 76 mm[Hg] Christina Portia Other [employer] Other 10-10-2021 15:50-0500 Respiratory rate 18 /min Christina Portia Other [employer] Other 10-10-2021 15:50-0500 SaO2% (BldA) [Mass fraction] 99 % Christina Pearce Other [employer] Other 10-10-2021 15:50-0500 Systolic blood pressure 123 mm[Hg] Christina Pearce Other [employer] Other Encounters Encounter Date Encounter Type Care Provider Facility Start: 10-27-2024 End: 10-27-2024 Clinisync Result Encounter Osei Helena DO Work Phone: [facility] Unsolicited Start: 10-27-2024 End: 10-27-2024 Clinisync Result Encounter Osei Helena DO Work Phone: [facility] Unsolicited Start: 10-23-2024 End: 10-23-2024 Clinisync Result Encounter Generic External Data Provider [facility] External [facility] Unsolicited Start: 10-23-2024 End: 10-23-2024 Clinisync Result Encounter Generic External Data Provider [facility] External [facility] Unsolicited Start: 10-17-2024 End: 10-17-2024 Orders Only Roshni Jo RN [facility] Comment on above: Dichorionic diamniot ic twin in third trimester (Primary Dx) Start: 10-16-2024 End: 10-16-2024 ambulatory OSEI R HELENA [facility] Start: 10-15-2024 End: 10-15-2024 flow sheet [...] 09-19-2024 End: 09-26-2024 Orders Only 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 [facility]- [facility] at [facility] Comment on above: Dichorionic diamniot ic [...] Start: 09-02-2024 End: 09-02-2024 ambulatory JYOTI DICKEY Facility:[facility] Comment on above: POTS (postural ortho static tachycardia syndrome) (Primary Dx); 23 weeks gestation of Start: 09-02-2024 End: 09-02-2024 Telemedicine consultation with patient Jyoti Dickey TOMASZ-Akila Work Phone: Neurology Start: 09-01-2024 End: 09-01-2024 Clinisync Result Encounter Generic External Data Provider [facility] External [facility] Unsolicited Start: 09-01-2024 End: 09-01-2024 Clinisync Result Encounter Generic External Data Provider [facility] External [facility] Unsolicited Start: 08-29-2024 End: 08-29-2024 Telephone encounter Marycarmen Kennedy RN [facility] Start: 08-27-2024 End: 08-27-2024 Bamboo flowsheet Camilla TOLBERT Work Phone: [facility] Start: 08-27-2024 End: 08-27-2024 Bamboo flowsheet Camilla TOBLERT Work Phone: [facility] Start: 08-27-2024 [...] Only Sammi Green RN [facility]- [facility] at [facility] Comment on above: Dichorionic diamniot ic twin in second trimester (Primary Dx); POTS (postural orthostatic tachycardia syndrome); Asthma during ; 20 weeks gestation of Start: 08-13-2024 End: 08-13-2024 Office outpatient new 45 minutes Muna Lenz MD Work Phone: [facility] Comment on above: Dichorionic diamniot ic twin in second trimester (Primary Dx); POTS (postural orthostatic tachycardia syndrome); Asthma during ; 20 weeks gestation of Start: 08-13-2024 End: 08-13-2024 ambulatory OSEI MALIK [facility] Start: 08-11-2024 End: 08-13-2024 Clinisync Result [...] Start: 07-24-2024 End: 07-24-2024 ambulatory Celeste Watson Facility:[facility] Start: 07-07-2024 End: 07-07-2024 Chart abstracting Hammad Hatch MD Work Phone: [facility]- [facility] Start: 07-03-2024 End: 07-03-2024 flow sheet [...] Start: 07-02-2024 End: 07-02-2024 ambulatory Joie Seaman YACHT HAND.RESIDENTIAL AIDE Work Phone: Neurology Comment on above: POTS (postural ortho static tachycardia syndrome) (Primary Dx); Near syncope Start: 07-02-2024 End: 07-02-2024 Telemedicine consultation with patient Joie Seaman YACHT HAND.RESIDENTIAL AIDE Work Phone: Neurology Start: 06-10-2024 End: 06-11-2024 [...] Start: 05-20-2024 End: 05-20-2024 Bamboo flowsheet Camilla M Hemmer PA Work Phone: [facility] Start: 05-20-2024 End: 05-20-2024 Office outpatient visit 15 minutes Camilla Garcia PA Work Phone: [facility] Comment on above: Pain of left sacroil iac joint (Primary Dx) Start: 05-20-2024 End: 05-20-2024 ambulatory CAMILLA GARCIA Not Available Start: 04-12-2024 End: 04-12-2024 ambulatory Celeste Watson Facility:[facility] Start: 04-12-2024 End: 04-12-2024 Patient encounter procedure Celeste Watson [facility] Start: 03-25-2024 Patient encounter status Camilla Garcia PA Work Phone: [facility] Start: 03-25-2024 End: 03-25-2024 ambulatory JB Charlton NAZIA Not Available Start: 03-20-2024 End: 03-20-2024 ambulatory Jyoti Dickey PA-C Work Phone: Neurology Comment on above: POTS (postural ortho static tachycardia syndrome) (Primary Dx) Start: 03-20-2024 End: 03-20-2024 Telemedicine consultation with patient Jyoti Gallowayur PA-C Work Phone: Neurology Start: 03-14-2024 End: 03-14-2024 ambulatory Celeste Watson Facility:[facility] Start: 03-14-2024 End: 03-14-2024 Patient encounter procedure Celeste Watson [facility] Start: 02-26-2024 End: 02-26-2024 ambulatory JB MANDUJANO Not Available Start: 01-22-2024 ambulatory TRANSIT COACH OPERATOR Krista L Mae Facil ity:[facility] Start: 01-01-2024 End: 01-01-2024 ambulatory CELESTE WATSON Not Available Start: 12-21-2023 End: 12-21-2023 ambulatory OSEI MALIK Not Available Start: 12-11-2023 End: 12-11-2023 ambulatory TRANSIT COACH OPERATOR Krista L Mae Facility:[facility] Start: 12-11-2023 End: 12-11-2023 ambulatory CELESTE WATSON Not Available Start: 11-30-2023 End: 11-30-2023 ambulatory AURORA SANTIAGO Facility:[facility] Start: 11-30-2023 End: 11-30-2023 Patient encounter procedure Jyoti Dickey PA-C Work Phone: Neurology Comment on above: POTS (postural ortho static tachycardia syndrome) (Primary Dx) Start: 11-12-2023 End: 11-12-2023 Patient encounter procedure Autonomic 2 Neur Main [facility] Start: 11-12-2023 End: 11-12-2023 ambulatory AURORA SANTIAGO Neurology Comment on above: Procedure Start: 10-10-2023 End: 10-10-2023 ambulatory AURORA SANTIAGO Facility:[facility] Start: 07-24-2023 End: 07-24-2023 ambulatory Jocelin FELIX Facility:[facility] Start: 07-20-2023 Telephone encounter Arin Tinajero RN [facility] Comment on above: Referral Follow-up Start: 07-10-2023 End: 07-10-2023 ambulatory JOSE ARMANDO GREY Facility:[facility] Start: 07-10-2023 End: 07-10-2023 Office outpatient new 30 minutes Jose Armando Grey DO Work Phone: [facility] [place] Comment on above: Chronic pain of righ t knee (Primary Dx); Tendinopathy of gluteal region Start: 07-06-2023 Orders Only Jose Armando Grey DO Work Phone: Orthopaedics Comment on above: Right knee pain, uns pecified chronicity (Primary Dx) Start: 07-05-2023 End: 07-05-2023 ambulatory SCISSORS GRINDER-C Ibis Maggy Arenasncer Work Phone: [facility] Work Phone: Start: 07-05-2023 End: 07-05-2023 Patient encounter procedure SCISSORS GRINDER-C Ibis Myra Work Phone: [facility]-Flu Vaccine Start: 06-13-2023 Office outpatient vi sit 15 minutes Ibis Limer Work Phone: -[facility] 600 DO Work Phone: Start: 06-13-2023 ambulatory Tabatha Cota Facility:[id number] Start: 06-08-2023 End: 06-08-2023 Emergency department patient visit SCISSORS GRINDER-C Ibis Myra Work Phone: [facility]-Emergency Room Work Phone: Start: 04-25-2023 End: 04-25-2023 ambulatory SCISSORS GRINDER-C Ibis Maggy Myra Work Phone: [facility] Work Phone: Start: 04-25-2023 End: 04-25-2023 Departed Referred SCISSORS GRINDER-C Ibis Myra Work Phone: [facility] [place] [address] Work Phone: Start: 03-14-2023 ambulatory CHAN MUÑIZ Fa cility:[facility] Start: 01-18-2023 End: 01-18-2023 ambulatory SCISSORS GRINDER-C Ibis Maggy Myra Work Phone: [facility] Work Phone: Start: 01-18-2023 End: 01-18-2023 Departed Referred SCISSORS GRINDER-C Ibis Myra Work Phone: [facility] [address] Work Phone: Start: 12-28-2022 End: 12-28-2022 Patient encounter procedure Irvin Hanna MD Work Phone: Rheumatology Comment on above: Pain and swelling of knee, right (Primary Dx); Joint stiffness Start: 10-31-2022 Chart Update Ibis Arenasn cer Work Phone: [facility] 250 DO Work Phone: Start: 10-16-[address] Melodie Alfonso ty: Start: 10-13-2022 Current tobacco non- user cad cap copd pv dm Ibis A Myra Work Phone: [facility] 320 DO Work Phone: Start: 10-13-[address] Annalee Pierre acility: Start: 09-11-2022 Office outpatient vi sit 15 minutes Ibis Ellis Myra Work Phone: [facility] 250 DO Work Phone: Start: 09-11-2022 Patient encounter procedure Ibis Rhonda ArenasMyra Work Phone: [facility] 250 DO Work Phone: Start: 09-11-[address] Melodie Alfonso ty: Start: 09-07-2022 Telephone encounter Ibis Ellis Myra Work Phone: [facility] 320 DO Work Phone: Start: 08-27-[address] Annalee Pierre acility: Start: 08-01-2022 AUDIT Ibis Ellis Spen cer Work Phone: [facility] 320 DO Work Phone: Start: 07-31-2022 EVENT EZEKIEL, Provider : HERIBERTO SERRANO RETINA SUBSPECIALIST 1,[id number], Status: Pen, Time: 11:00 AM Ibis A Myra Work Phone: [facility] 250 DO Work Phone: Start: 07-31-[address] Annalee Maza F acility: Start: 07-31-2022 End: 07-31-2022 Patient encounter procedure Irvin Hanna MD Work Phone: Rheumatology Comment on above: Pain and swelling of knee, right (Primary Dx); Joint stiffness; Inflammatory arthritis Start: 07-26-2022 ambulatory IBIS RENTERIA Facilit y:[facility] Start: 07-21-2022 Current tobacco non- user cad cap copd pv dm Ibis A Myra Work Phone: [facility] 320 DO Work Phone: Start: 07-21-[address] Annalee Pierre acility: Start: 07-10-2022 Office outpatient vi sit 25 minutes Ibis A Myra Work Phone: [facility] 250 DO Work Phone: Start: 07-10-2022 Patient encounter procedure Ibis A Myra Work Phone: [facility] 250 DO Work Phone: Start: 07-10-[address] Melodie Greeni ty: Start: 06-15-2022 Telephone encounter Ibis A Myra Work Phone: [facility] 250 DO Work Phone: Start: 06-12-2022 End: 06-12-[address] Annalee Maza Facility:[id number] Start: 06-05-2022 Patient encounter procedure Ibis A Myra Work Phone: [facility] 5 Work Phone: Start: 06-01-2022 End: 06-01-2022 Emergency department patient visit SCISSORS GRINDER-C Ibis Myra Work Phone: [facility]-Emergency Room Start: 05-18-2022 Office outpatient vi sit 25 minutes Ibis A Myra Work Phone: [facility] 250 DO Work Phone: Start: 05-18-2022 Patient encounter procedure Ibis A Myra Work Phone: [facility] 250 DO Work Phone: Start: 05-08-2022 End: 05-08-2022 Patient encounter procedure SCISSORS GRINDER-C Ibis Myra Work Phone: [facility]-Respiratory Therapy Start: 05-03-2022 Result Review Ibis A Spen cer Work Phone: [facility] 250 DO Work Phone: Start: 05-03-2022 SURGNONUH, Provider: María Elena Freire, Status: Pen, Time: 10:00 AM Ibis Rhonda Myra Work Phone: [facility] 250 DO Work Phone: Start: 05-03-2022 End: 05-03-2022 Patient encounter procedure SCISSORS GRINDER-C Iibs Myra Work Phone: [facility] Start: 03-28-2022 EVENT EZEKIEL, Provider : HERIBERTO SINGH RETINA SUBSPECIALIST 1,[id number], Status: Pen, Time: 8:00 AM Ibis A Myra Work Phone: [facility] 250 DO Work Phone: Start: 03-28-2022 Patient encounter procedure Ibis A Myra Work Phone: [facility] 250 DO Work Phone: Start: 03-26-2022 Chart Update Ibis A Spen cer Work Phone: [facility] 250 DO Work Phone: Start: 03-24-2022 End: 03-24-2022 Patient encounter procedure SCISSORS GRINDER-C Ibis Arenasncer Work Phone: [facility] [place] Start: 03-23-2022 Office consultation new/estab patient 60 min Ibis A Myra Work Phone: [facility] 250 DO Work Phone: Start: 03-23-2022 Office outpatient ne w 45 minutes Ibis Arenasncer Work Phone: [facility] Work Phone: Start: 02-02-2022 Telephone encounter Irvin shannon MD Work Phone: Rheumatology Comment on above: Orders Start: 01-25-2022 End: 01-25-2022 Patient encounter procedure Irvin Hanna MD Work Phone: Rheumatology Comment on above: Pain and swelling of knee, right (Primary Dx); Joint stiffness Start: 01-10-2022 End: 01-10-2022 ambulatory Ok Mckeon Other [employer] Other Start: 01-10-2022 Office outpatient ne w 45 minutes Ok Mckeon [facility] Vascular Surgery Start: 10-10-2021 End: 10-10-2021 ambulatory Christina Pearce Other [employer] Other Start: 10-10-2021 Office outpatient vi sit 15 minutes Christina Pearce [facility] Procedures Date Procedure Procedure Detail Performing Clinician Start: 10-27-2024 ECG 12-LEAD Osei Fazi o DO Work Phone: Start: 10-27-2024 Ct angiography chest w/contrast/noncontrast Osei Malik DO Work Phone: Start: 10-27-2024 [facility] UA (CLEAN/CATCH) FORMING YARDAGE CONTROL OPERATOR/MICRO IF IND. Osei Helena DO Work Phone: Start: 10-23-2024 US OB BPP W NON-STRESS Generic External Data Provider Start: 10-15-2024 Urnls dip stick/tabl et rgnt non-auto w/o micrscp Osei Helena DO Work Phone: Start: 10-02-2024 Urnls dip stick/tabl et rgnt non-auto w/o micrscp Osei Helena DO Work Phone: Start: 09-25-2024 [facility] UA (CLEAN/CATCH) FORMING YARDAGE CONTROL OPERATOR/MICRO IF IND. Osei Helena DO Work Phone: Start: 09-18-2024 Urnls dip stick/tabl et rgnt non-auto w/o micrscp Osei Helena DO Work Phone: Start: 09-03-2024 Urnls dip stick/tabl et rgnt non-auto w/o micrscp Osei Helena DO Work Phone: Start: 09-01-2024 GLUCOSE TOLERANCE 3 HOUR [employer] Work Phone: Start: 08-20-2024 ALL CBC WITH AUTO DIFF [employer] DO Work Phone: Start: 08-13-2024 Us preg uterus after 1st trimest / gestation [employer] Work Phone: Start: 08-11-2024 AFP, SERUM, OPEN SPI NA BIFIDA Flori TOLBERT Work Phone: Start: 08-05-2024 RECURRENT VAGINITIS (HTRX) Flori TOLBERT Work Phone: Start: 08-05-2024 Urnls dip stick/tabl et rgnt non-auto w/o micrscp Flori TOLBERT Work Phone: Start: 08-05-2024 IGP,APTIMA HPV,AGE GDLN Generic External Data Provider Start: 08-05-2024 Microscopic observat ion [Identifier] in Cervix by Cyto stain 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 Start: 07-03-2024 Urnls dip stick/tabl et rgnt [...] Osei Helena DO Work Phone: Start: 07-10-2023 [facility] Pr ovider Historical Start: 06-08-2023 Plain chest X-ray SCISSORS GRINDER-C Ibis Myra Work Phone: Start: 01-18-2023 Plain chest X-ray SCISSORS GRINDER-C Ibis Myra Work Phone: Start: 05-03-2022 Plain chest X-ray SCISSORS GRINDER-C Ibis Arenasncer Work Phone: Start: 08-05-2021 Arthroscopy of knee [facility] [employer] Arthroscopy of knee Ibis A Myra Work Phone: Cryotherapy of warts Lornachula Martinezradha Extraction of wisdom tooth Ibis A Myra Work Phone: SARS-CoV-2, Influenz a & RSV (PCR) SCISSORS GRINDER-C Ibis Myra Work Phone: Tonsillectomy and adenoidectomy Ibis A Myra Work Phone: Tonsillectomy and adenoidectomy Celeste Watson NEGATED: Highlighted row has not occurred! Total colonoscopy Ibis A Myra Work Phone: Plan of Treatment Date Care Activity Detail Author Start: 03-25-2034 DTaP,Tdap and Td Vac cines (8 - Td or Tdap) DTaP,Tdap and Td Vaccines (8 - Td or Tdap) [employer] Start: 03-25-2034 Urine microalbumin profile DTaP,Tdap,Td Vaccine (8 - Td or Tdap) [facility] Start: 08-05-2027 Screening for malign ant neoplasm of cervix Pap Smear [facility] Start: 10-17-2025 End: 10-17-2025 US MFM with or without consult US MFM with or without consult Imaging Routine Dichorionic diamniotic twin in third trimester Expected: 10/17/2025 (Approximate), Expires: 10/17/2025 [facility] Work Phone: Comment on above: Expected: 10/17/2025 (Approximate), Expires: 10/17/2025 Start: 09-19-2025 End: 09-19-2025 US MFM with or without consult US MFM with or without consult Imaging Routine Dichorionic diamniotic twin in second trimester Expected: 09/19/2025 (Approximate), Expires: 09/19/2025 [facility] Work Phone: Comment on above: Expected: 09/19/2025 (Approximate), Expires: 09/19/2025 Start: 08-15-2025 End: 08-15-2025 US MFM with or without consult US MFM with or without consult Imaging Routine Dichorionic diamniotic twin in second trimester POTS (postural orthostatic tachycardia syndrome) Asthma during 20 weeks gestation of Expected: 08/15/2025 (Approximate), Expires: 08/15/2025 [facility] Work Phone: Comment on above: Expected: 08/15/2025 (Approximate), Expires: 08/15/2025 Start: 08-13-2025 [facility] Start: 08-13-2025 Tobacco Screening Tobacco [facility] Start: 11-12-2024 End: 11-12-2024 Patient encounter procedure 11/12/2024 9:30 AM EST Appointment [facility] [address] [place] [address] [facility] Start: 10-29-2024 End: 10-29-2024 Patient encounter procedure 10/29/2024 3:50 PM EST Routine [facility] [address] [facility] [place] [phone] Osei Malik, DO [address] [place] [address] [facility] Start: 10-16-2024 End: 10-16-2024 Patient encounter procedure 10/16/2024 1:00 PM EST Appointment [facility] [address] [place] [address] [facility] Start: 10-15-2024 End: 10-15-2024 Patient encounter procedure [facility] Comment on above: Arrived Start: 10-15-2024 End: 10-15-2025 US biophysical profile w non stress test US biophysical profile w non stress test Imaging Routine Dichorionic diamniotic twin in second trimester Expected: 10/15/2024 (Approximate), Expires: 10/15/2025 [facility] Work Phone: Comment on above: Expected: 10/15/2024 (Approximate), Expires: 10/15/2025 Start: 10-02-2024 End: 10-02-2024 Patient encounter procedure 10/02/2024 11:00 AM EST Routine [facility] [address] [facility] [place] [phone] Osei Malik, DO [address] [place] [address] [facility] Start: 09-23-2024 End: 09-23-2024 Patient encounter procedure 09/23/2024 1:00 PM EST Appointment [facility] - Ultrasound [address] [place] [phone] [facility] Start: 09-19-2024 End: 09-19-2024 Patient encounter procedure 09/19/2024 9:30 AM EST Appointment [facility] [address] [place] [address] [facility] Start: 09-18-2024 End: 09-18-2024 Patient encounter procedure [facility] Comment on above: Arrived Start: 09-03-2024 End: 09-03-2024 Patient encounter procedure [facility] Comment on above: Arrived Start: 09-02-2024 End: 09-02-2024 ambulatory 09/02/2024 12:15 PM EST [facility] Neurology [address] [place] [address] Jyoti Dickey PA-C [address] [place] [address] F/u Neurology Comment on above: F/u Start: 09-02-2024 End: 09-02-2024 ambulatory 09/02/2024 10:45 AM EST [facility] Neurology [address] [place] [address] Jyoti Dickey PA-C [address] [place] [address] F/u Neurology Comment on above: F/u Start: 08-27-2024 End: 08-27-2024 Patient encounter procedure 08/27/2024 1:00 PM EST Office Visit [facility] [address] [facility] [address] [place] [address] Camilla Garcia PA [address] [facility] [address] [place] [address] Arrived [facility] Comment on above: Arrived Start: 08-13-2024 End: 08-13-2024 Patient encounter procedure [facility] Imaging Start: 08-05-2024 End: 02-02-2025 Alpha fetoprotein, maternal Alpha fetoprotein, maternal Lab Routine Second trimester Expected: 08/05/2024 (Approximate), Expires: 02/02/2025 [facility] Comment on above: Expected: 08/05/2024 (Approximate), Expires: 02/02/2025 Start: 08-05-2024 End: 08-05-2024 Patient encounter procedure 08/05/2024 8:50 AM EST Routine [facility] [address] [place] [phone] Osei Malik DO [address] [facility] [place] [address] [facility] Start: 07-03-2024 End: 07-03-2024 Patient encounter procedure [facility] Comment on above: Arrived Start: 06-04-2024 End: 06-04-2024 Patient encounter procedure [facility] Comment on above: Arrived Start: 05-25-2024 Covid-19 Vaccine ( season) Covid-19 Vaccine ( season) [facility] Start: 05-25-2024 Covid-19 Vaccine ( season) Covid-19 Vaccine ( season) [facility] Start: 05-25-2024 Influenza vaccination [facility] Start: 05-23-2024 End: 05-23-2025 ABO/Rh ABO/Rh [...] Initial [facility] [address] [place] [address] [facility] Start: 05-23-2024 End: 05-23-2024 Professional / ancillary services management 05/23/2024 8:30 AM EDT Ancillary Procedure [facility] [address] [place] [address] [facility] Start: 05-20-2024 End: 05-20-2024 Patient encounter procedure 05/20/2024 9:30 AM EDT Office Visit [facility] [address] [facility] [address] [place] [phone] Camilla Garcia, PA [address] [facility] [address] [place] [address] Arrived [facility] Comment on above: Arrived Start: 04-20-2024 Urine microalbumin profile DTaP,Tdap,Td Vaccine (7 - Td or Tdap) [facility] Start: 09-24-2023 Depression Assessment Depression Ass essment [facility] Start: 05-25-2023 Covid-19 Vaccine () Covid-19 Vaccine () [facility] Start: 05-25-2023 Influenza vaccination [facility] Start: 04-25-2023 [facility] Start: 04-06-2023 FUV, Provider: Annalee Maza, Status: Nahid, Time: 2:40 PM FUV, Provider: Annalee Maza, Status: Pen, Time: 2:40 PM -[facility] 320 DO Work Phone: Start: 2022 PAP TESTING PAP TESTING [facility] Start: 2022 Screening for malign ant neoplasm of cervix [facility] Start: 10-13-2022 FUV, Provider: Annalee Maza, Status: Pen, Time: 9:20 AM FUV, Provider: Annalee Maza, Status: Pen, Time: 9:20 AM -[facility] 320 DO Work Phone: Start: 09-24-2022 DEPRESSION ASSESSMENT DEPRESSION ASS ESSMENT [facility] Start: 09-11-2022 FUV, Provider: Melodie Aclaraz, Status: Pen, Time: 9:30 AM FUV, Provider: Melodie Alcaraz, Status: Pen, Time: 9:30 AM -[facility] 250 DO Work Phone: Start: 09-11-2022 EVENT EZEKIEL, Provider : HERIBERTO SINGH RETINA SUBSPECIALIST 1,[id number], Status: Pen, Time: 8:30 AM EVENT EZEKIEL, Provider: HERIBERTO SINGH RETINA SUBSPECIALIST 1,[id number], Status: Pen, Time: 8:30 AM [facility] 320 DO Work Phone: Start: 08-14-2022 EVENT EZEKIEL, Provider : MONICA ION RETINA SUBSPECIALIST 1,[id number], Status: Pen, Time: 10:00 AM EVENT EZEKIEL, Provider: MONICA ION RETINA SUBSPECIALIST 1,[id number], Status: Pen, Time: 10:00 AM -[facility] 250 DO Work Phone: Start: 07-21-2022 NPVRFRL, Provider: Annalee Maza, Status: Pen, Time: 7:20 AM NPVRFRL, Provider: Annalee Maza, Status: Pen, Time: 7:20 AM -[facility] 250 DO Work Phone: Start: 07-10-2022 FUV, Provider: Melodie Alcaraz, Status: Pen, Time: 10:45 AM FUV, Provider: Melodie Alcaraz, Status: Pen, Time: 10:45 AM [facility] 250 DO Work Phone: Start: 06-05-2022 [facility], Provider: Annalee Maza, Status: Pen, Time: 10:00 AM [facility], Provider: Annalee Maza, Status: Pen, Time: 10:00 AM [facility] 250 DO Work Phone: Start: 05-25-2022 Influenza vaccination [facility] Start: 05-18-2022 FUV, Provider: Melodie Alcaraz, Status: Pen, Time: 9:15 AM FUV, Provider: Melodie Alcaraz, Status: Pen, Time: 9:15 AM [facility] 250 DO Work Phone: Start: 05-08-2022 End: 05-08-2022 [facility] Start: 05-03-2022 SURGNONUH, Provider: María Elena Freire, Status: Pen, Time: 10:00 AM SURGNONUH, Provider: María Elena Freire, Status: Pen, Time: 10:00 AM [facility] DO Work Phone: Start: 03-28-2022 EVENT EZEKIEL, Provider : HERIBERTO SINGH RETINA SUBSPECIALIST 1,[id number], Status: Pen, Time: 8:00 AM EVENT EZEKIEL, Provider: HERIBERTO SINGH RETINA SUBSPECIALIST 1,[id number], Status: Pen, Time: 8:00 AM -[facility] 250 DO Work Phone: Start: 01-25-2022 End: 03-27-2022 Chronic hepatitis differentiation between hepatitis B and C virus panel - Serum or Plasma [facility] Work Phone: Comment on above: Expected: 01/25/2022 , Expires: 03/27/2022 Start: 01-25-2022 End: 03-27-2022 Complement C1 esterase inhibitor [Mass/volume] in Serum or Plasma [facility] Work Phone: Comment on above: Expected: 01/25/2022 , Expires: 03/27/2022 Start: 01-25-2022 End: 03-27-2022 Complement C2 [Mass/volume] in Serum or Plasma [facility] Work Phone: Comment on above: Expected: 01/25/2022 , Expires: 03/27/2022 Start: 09-24-2021 DEPRESSION ASSESSMENT DEPRESSION ASS ESSMENT [facility] Start: 06-16-2021 COVID-19 VACCINE (3 - Booster for Pfizer series) COVID-19 VACCINE (3 - Booster for Pfizer series) [facility] Start: 03-11-2021 COVID-19 VACCINE (3 - Booster for Pfizer series) COVID-19 VACCINE (3 - Booster for Pfizer series) [facility] Start: 02-11-2021 COVID-19 VACCINE (3 - Pfizer risk series) COVID-19 VACCINE (3 - Pfizer risk series) [facility] Start: 2020 SHINGRIX VACCINE (1 of 2) VANG GRIX VACCINE (1 of 2) [facility] Start: 2020 Urine microalbumin profile [facility] Start: 12-03-2019 Adult BMI Follow Up Plan Adult BMI Follow Up Plan [facility] Start: 12-03-2019 Adult BMI Screening Adult BMI Screen ing [facility] Start: 12-03-2019 Anxiety Screening Anxiety Screening [facility] Start: 12-03-2019 CHLAMYDIA SCREENING (1824) CHLAMYDIA SCREENING (18) [facility] Start: 12-03-2019 Depression Screening Depression Scre ening [facility] Start: 12-03-2019 GC (GONORRHEA) SCREE NINI (18-24) GC (GONORRHEA) SCREENING () [facility] Start: 12-03-2019 HEPATITIS C SCREENING HEPATITIS C SC REENING [facility] Start: 12-03-2019 HIV SCREENING HIV SCREENING [facility] Start: 12-03-2019 HIV screening HIV Screening [facility] Start: 12-03-2019 Screening for Chlamy taylor trachomatis Chlamydia Screening (18-24) [facility] Start: 2017 Meningococcal B Vacc ine: Consider Based On Risk (1 of 2 - Patient Seeks Protection) Meningococcal B Vaccine: Consider Based On Risk (1 of 2 - Patient Seeks Protection) [facility] Start: 12-03-2015 PEDS TO ADULT TRANSI TION ANNUAL ASSESSMENT PEDS TO ADULT TRANSITION ANNUAL ASSESSMENT [facility] Start: 2013 Adult depression screening assessment DEPRESSION SCREENING [facility] Start: 2013 PEDS TO ADULT TRANSI TION INITIAL DISCUSSION PEDS TO ADULT TRANSITION INITIAL DISCUSSION [facility] Start: 2013 Tobacco Screening Tobacco Screening [facility] Start: 2012 HPV VACCINE (1 - 2-d ose series) HPV VACCINE (1 - 2-dose series) [facility] Start: 12-03-2011 MENINGOCOCCAL B: Con chair based on risk (1 of 2 - Risk Bexsero 2-dose series) MENINGOCOCCAL B: Consider based on risk (1 of 2 - Risk Bexsero 2-dose series) [facility] Start: 2010 HPV Vaccine (1 - 2-d ose series) HPV Vaccine (1 - 2-dose series) [facility] Start: 2010 HPV VACCINES (1 - 2- dose series) HPV VACCINES (1 - 2-dose series) [facility] Start: 2008 DTaP/Tdap/Td VACCINE S (1 - Tdap) DTaP/Tdap/Td VACCINES (1 - Tdap) [facility] Start: 12-03-2007 PNEUMOCOCCAL (1 - PCV) PNEUMOCOCCAL (1 - PCV) [facility] Start: 2002 MMR VACCINES (1 of 1 - Standard series) MMR VACCINES (1 of 1 - Standard series) [facility] Start: 2002 VARICELLA VACCINES ( 1 of 2 - 2-dose childhood series) VARICELLA VACCINES (1 of 2 - 2-dose childhood series) [facility] Start: 06-04-2002 COVID-19 Vaccine (#1) COVID-19 Vacci ne (#1) [facility] Start: 2001 HEPATITIS B (1 of 3 - 3-dose series) HEPATITIS B (1 of 3 - 3-dose series) [facility] Start: 2001 Hepatitis B Vaccine (1 of 3 - 3-dose series) Hepatitis B Vaccine (1 of 3 - 3-dose series) [facility] Start: 2001 HEPATITIS B VACCINES (1 of 3 - 3-dose series) HEPATITIS B VACCINES (1 of 3 - 3-dose series) [facility] Start: 2001 Screening for Chlamy taylor trachomatis Chlamydia Screening [facility] Bacteria identified in Urine by Culture Urine culture Microbiology Routine Missed menses Ordered: 05/23/2024 [facility] Comment on above: Ordered: 05/23/2024 CBC W Auto Different ial panel - Blood CBC and differential Lab Routine Missed menses Ordered: 05/23/2024 [facility] Comment on above: Ordered: 05/23/2024 CHLAMYDIA TRACHOMATI S (GENITO/STI) CHLAMYDIA TRACHOMATIS (GENITO/STI) Lab Routine STD exposure Ordered: 08/05/2024 [facility] Comment on above: Ordered: 08/05/2024 Cytology Cervical or vaginal smear or scraping study Pap Smear Pathology and Cytology Routine Well woman exam with routine gynecological exam Ordered: 08/05/2024 [facility] Comment on above: Ordered: 08/05/2024 Hemoglobin A1c/Hemoglobin.total in Blood Hemoglobin A1c Lab Routine Missed menses Ordered: 05/23/2024 [facility] Comment on above: Ordered: 05/23/2024 Hepatitis B virus ramirez rface Ag [Presence] in Serum or Plasma by Immunoassay Hepatitis B surface antigen Lab Routine Missed menses Ordered: 05/23/2024 [facility] Comment on above: Ordered: 05/23/2024 Hepatitis C virus Ab [Presence] in Serum or Plasma by Immunoassay Hepatitis C antibody Lab Routine Missed menses Ordered: 05/23/2024 [facility] Comment on above: Ordered: 05/23/2024 HIV-1/HIV-2 antigen/antibody combination immunoassay HIV-1 and HIV-2 antibodies Lab Routine Missed menses Ordered: 05/23/2024 [facility] Comment on above: Ordered: 05/23/2024 Neisseria gonorrhoea e DNA [Presence] in Unspecified specimen by PERFECTO with probe detection Neisseria gonorrhea DNA probe, direct Lab Routine STD exposure Ordered: 08/05/2024 [facility] Comment on above: Ordered: 08/05/2024 Patient Education [facility] Work Phone: Patient referral [facility] Work Phone: Reagin Ab [Presence] in Serum by RPR RPR Lab Routine Missed menses Ordered: 05/23/2024 [facility] Comment on above: Ordered: 05/23/2024 Rubella antibody, IgG Rubella an tibody, IgG Lab Routine Missed menses Ordered: 05/23/2024 [facility] Comment on above: Ordered: 05/23/2024 SURESWAB(R) ADVANCED VAGINITIS PLUS, TMA SURESWAB(R) ADVANCED VAGINITIS PLUS, TMA Pathology and Cytology Routine Vaginal discharge Ordered: 08/05/2024 [facility] Work Phone: Comment on above: Ordered: 08/05/2024 End: 08-04-2024 XR KNEE GENERAL 4V AP BOTH/PA BOTH/LAT/MERC RIGHT XR KNEE GENERAL 4V AP BOTH/PA BOTH/LAT/MERC RIGHT Radiology Routine Right knee pain, unspecified chronicity 1 Occurrences starting 07/06/2023 until 08/04/2024 [facility] Work Phone: Comment on above: 1 Occurrences starti ng 07/06/2023 until 08/04/2024 [facility] Immunizations Immunization Date Immunization Notes Care Provider Cheryl harden 07-24-2024 influenza, seasonal, injectable, preservative free Camilla TOLBERT Work Phone: [facility] Work Phone: 03-25-2024 tetanus toxoid, redu richar diphtheria toxoid, and acellular pertussis vaccine, adsorbed Camilla TOLBERT Work Phone: [facility] 07-05-2023 influenza virus vaccine, unspecified formulation Celeste Watson [facility] [place] 07-05-2023 influenza, injectabl e, quadrivalent, preservative free Camilla TOLBERT Work Phone: [facility] 01-14-2021 Pfizer-BioNTech COVID-19 Vacc 30 MCG/0.3ML Intramuscular Suspension Ibis Renteria Work Phone: [facility] Comment on above: Result Comment: 2023: TPVAL 12-24-2020 Pfizer-BioNTXylogenics COVID-19 Vacc 30 MCG/0.3ML Intramuscular Suspension Ibis Ellis Myra Work Phone: [facility] Comment on above: Result Comment: 2023: TPVAL 12-11-2017 meningococcal polysaccharide (groups A, C, Y and W-135) diphtheria toxoid conjugate vaccine (MCV4P) Christina Portia Other [place] [employer] Other 12-11-2017 meningococcal ACWY vaccine, unspecified formulation Celeste Watson [facility] 11-06-2014 human papilloma viru s vaccine, quadrivalent Christina Portia Other [employer] Other 11-06-2014 HPV, unspecified formulation Ibis Arenasncer Work Phone: [facility] 250 DO Work Phone: 06-26-2014 HPV, unspecified formulation Celeste Watson [facility] 06-26-2014 human papilloma viru s vaccine, quadrivalent Christina Portia Other [employer] Other 04-20-2014 human papilloma viru s vaccine, quadrivalent Christina Portia Other [employer] Other 04-20-2014 meningococcal polysaccharide (groups A, C, Y and W-135) diphtheria toxoid conjugate vaccine (MCV4P) Christina Portia Other [employer] Other 04-20-2014 tetanus toxoid, redu richar diphtheria toxoid, and acellular pertussis vaccine, adsorbed Christina Portia Other [facility] 04-20-2014 HPV, unspecified formulation [employer]este [employer] [facility] 04-20-2014 meningococcal ACWY vaccine, unspecified formulation [facility]este [employer] [facility] 12-27-2006 diphtheria, tetanus toxoids and acellular pertussis vaccine, unspecified formulation Ibis A Myra Work Phone: [facility] [employer] DO Work Phone: 12-27-2006 DTaP, unspecified formulation Celeste [employer] [facility] 12-27-2006 measles, mumps, rubella, and varicella virus vaccine Ibis A Myra Work Phone: [facility] 12-27-2006 poliovirus vaccine, inactivated Ibis A Myra Work Phone: [facility] [employer] DO Work Phone: 12-27-2006 poliovirus vaccine, unspecified formulation Celeste [employer] [facility] 02-06-2003 diphtheria, tetanus toxoids and acellular pertussis vaccine, unspecified formulation Ibis A Myra Work Phone: [facility] [employer] DO Work Phone: 02-06-2003 DTaP, unspecified formulation Celeste [employer] [facility] 02-06-2003 haemophilus influenz ae type b vaccine, conjugate unspecified formulation Ibis A Myra Work Phone: [facility] DO Work Phone: 02-06-2003 Hib, unspecified formulation Celeste Rinkes [facility] 02-06-2003 measles, mumps and rubella virus vaccine Ibis A Myra Work Phone: [facility] 02-06-2003 varicella virus vaccine Susan ica A Myra Work Phone: [facility] 07-02-2002 diphtheria, tetanus toxoids and acellular pertussis vaccine, unspecified formulation Ibis A Myra [facility] Work Phone: 07-02-2002 DTaP, unspecified formulation Celeste [employer] [facility] 07-02-2002 haemophilus influenz ae type b vaccine, conjugate unspecified formulation Ibis A Myra Work Phone: [facility] DO Work Phone: 07-02-2002 Hib, unspecified formulation [email or web address] [facility] 07-02-2002 pneumococcal conjuga te vaccine, 7 valent Ibis A Myra Work Phone[facility] 250 DO Work Phone: 07-02-2002 poliovirus vaccine, inactivated Ibis A Myra Work Phone[facility] DO Work Phone: 07-02-2002 poliovirus vaccine, unspecified formulation Celeste [employer] [facility] 05-19-2002 diphtheria, tetanus toxoids and acellular pertussis vaccine, unspecified formulation Ibis A Myra Work Phone: [facility] 250 DO Work Phone: 05-19-2002 DTaP, unspecified formulation Celeste Rinkes [facility] 05-19-2002 haemophilus influenz ae type b conjugate and Hepatitis B vaccine Ibis A Myra Work Phone: [place] [address] DO Work Phone: 05-19-2002 pneumococcal conjuga te vaccine, 7 valent Ibis A Myra Work Phone: [place] [address] DO Work Phone: 05-19-2002 poliovirus vaccine, inactivated Ibis A Myra Work Phone: [place] [address] DO Work Phone: 05-19-2002 poliovirus vaccine, unspecified formulation Celeste [employer] [facility] 03-05-2002 diphtheria, tetanus toxoids and acellular pertussis vaccine, unspecified formulation Ibis A Myra Work Phone: [place] [address] DO Work Phone: 03-05-2002 DTaP, unspecified formulation [employer]este [employer] [facility] 03-05-2002 haemophilus influenz ae type b conjugate and Hepatitis B vaccine Ibis A Myra Work Phone: [facility] 250 DO Work Phone: 03-05-2002 poliovirus vaccine, inactivated Ibis A Myra Work Phone: [facility] 250 DO Work Phone: 03-05-2002 poliovirus vaccine, unspecified formulation Celeste [employer] [facility] 2001 hepatitis B vaccine, pediatric or pediatric/adolescent dosage Ibis A Myra [facility] Phone[facility] P[facility] Date Payer Category Payer Self-pay [id number] 2023 Unknown [id number] 2022 Medicaid HMO [employer] [id number] 2021 Private Health Insurance [id number] 2021 Private Health Insurance [id number] [id number] 2020 Private Health Insurance [facility] CHOICE PLUS [id number] 2020-Present [phone] [address] [place] [address] HMO [id number]. [id number] 2020 Unknown [id number] 2017 Managed Care Other (unspecified) [id number] 2013 Medicaid [employer] [id number] 2013-Present [phone] [address] [place] [address] Medicaid [id number] 2013 Medicaid [id number]. [id number] 2007 Unknown [id number] 2.16.840.1.103446.19 2001 Unknown [id number] 2.16.840.1.985308.3.579.2. 1068 2001 Unknown [id number] 2.16.840.1.385395.3.579.2. 594 2001 Unknown [id number] 2.16.840.1.511240.3.579.2. 594 2001 Unknown [id number] 2.16.840.1.660827.3.579.2. 356 2001 Unknown [id number] 2.16.840.1.944311.3.579.2. 356 2001 Unknown [id number] 2.16.840.1.639118.3.579.2. 356 2001 Unknown [id number] 2.16.840.1.331495.3.579.2. 356 2001 Unknown [id number] 2.16.840.1.409289.3.579.2. 356 2001 Unknown [id number] 2.16.840.1.433990.3.579.2. 356 2001 Unknown [id number] 2.16.840.1.760242.3.579.2. 356 2001 Unknown [id number] 2.16.840.1.208445.3.579.2. 356 2001 Unknown [id number] 2.16.840.1.306377.3.579.2. 727 2001 Unknown [id number] 2.16.840.1.539293.3.579.2. 727 2001 Unknown [id number] 2.16.840.1.329044.3.579.2. 727 2001 Unknown [id number] 2.16.840.1.560268.3.579.2. 727 2001 Unknown [id number] 2.16.840.1.672447.3.579.2. 727 2001 Unknown [id number] 2.16.840.1.002570.3.579.2. 1258 2001 Unknown [id number] 2.16.840.1.309300.3.579.2. 1258 2001 Unknown [id number] 2.16.840.1.822909.3.579.2. 1258 2001 Unknown [id number] 2.16.840.1.318612.3.579.2. 1258 2001 Unknown [id number] 2.16.840.1.616133.3.579.2. 1258 2001 Unknown [id number] 2.16.840.1.538320.3.579.2. 1258 2001 Unknown [id number] 2.16.840.1.018299.3.579.2. 1258 2001 Unknown [id number] 2.16.840.1.628194.3.579.2. 1258 2001 Unknown [id number] 2.16.840.1.522935.3.579.2. 1258 2001 Unknown [id number] 2.16.840.1.506619.3.579.2. 1258 2001 Unknown [id number] 2.16.840.1.934989.3.579.2. 1258 2001 Unknown [id number] 2.16.840.1.282958.3.579.2. 1258 2001 Unknown [id number] 2.16.840.1.798924.3.579.2. 1258 2001 Unknown [id number] 2.16.840.1.690326.3.579.2. 1258 2001 Unknown [id number] 2001 Unknown [id number] 2001 Unknown [id number] 2001 Unknown [id number] 2001 Unknown [id number] Unknown Unknown Venessa BC/JESSICA [id number] Unknown [id number] Social History Date Type Detail Facility [facility] Work Phone: Start: 2001 Sex Assigned At Not on file [facility] Start: 01-15-2022 End: 07-31-2022 Exposure to SARS-CoV-2 (event) Not sure [facility] Start: 12-28-2022 End: 02-25-2024 Sex Assigned At [facility] Start: 12-28-2022 End: 02-25-2024 No alcohol use No alcohol use [facility] Comment on above: very rarely soda; Start: 09-20-2019 End: 02-20-2023 Tobacco smoking status DCIS Never smoked tobacco (finding) [facility] Start: 2001 Sex Assigned At Female F [facility] Start: 07-31-2022 End: 02-20-2023 Tobacco use and exposure Smokeless tobacco non-user [facility] Adult Depression Screening Assessment 0 [facility] Start: 09-29-2023 Gender identity Identifies as female gender (finding) [facility] Start: 06-04-2024 End: 10-27-2024 Alcoholic beverage intake Ex-drinker (finding) [facility] Do you belong to any clubs or organizations such as druze groups, unions, fraternal or athletic groups, or [...] hcare Start: 04-27-2015 Sex Female (finding) [facility] NEGATED: Highlighted rowStart: RIKF History of tobacco use Passive smoker [facility] Medical Equipment Procedure Code Equipment Code Equipment Origin al Text Equipment Identifier Dates 1 strip by In Vi tro route Daily Use in the morning prior to breakfast, 1 hour after each meal for a total of 4times daily. [id number] Start: 09-18-2024 End: 10-18-2024 1 each by In Vit ro route Daily Use to check FSBS four times daily [id number] Start: 09-18-2024 End: 10-18-2024 Clinical Notes 09-24-2007 to 10-15-2024 Camilla Bar, [place] - 10/15/2024 3:30 PM Titi Mendes, [place] - 10/02/2024 11:00 AM ESTTelephone Encounter - Pilar Alonso, [place] - 09/25/2024 12:42 PM Teresa Bar, [place] [...] nursing note reviewed. Exam conducted with a residential aide present. Vitals: Estimated body mass index is [...] Osei Malik DO documented in this encounter [facility] 10-02-2024 History of Present [...] nursing note reviewed. Exam conducted with a residential aide present. Vitals: Estimated body mass index is [...] Osei Malik DO documented in this encounter [facility] 09-25-2024 Telephone encounter Note [...] today. Patient was advised to report to [facility] for check and she was asking if she could go to [facility] as that's closer she was advised we prefer [place] but she can go where she is comfortable. Patient states will go to [facility] as she is at work and that's closer right now. Patient advised note would be in chart. [facility] Work Phone: 09-25-2024 Miscellaneous [...] today. Patient was advised to report to [facility] for check and she was asking if she could go to [facility] as that's closer she was advised we prefer [place] but she can go where she is comfortable. Patient states will go to [facility] as she is at work and that's closer right now. Patient advised note would be in chart. documented in this encounter [facility] 09-18-2024 History of Present [...] nursing note reviewed. Exam conducted with a residential aide present. Vitals: Estimated body mass index is [...] Camilla Bar LPN on behalf of: Osei Malki DO documented in this encounter [facility] 09-03-2024 History of Present [...] Osei Malik DO documented in this encounter [facility] 09-02-2024 History of Present illness Narrative Images from the original note were not included. [facility] Follow-Up VIRTUAL VISIT This is a virtual visit using [employer] Video Visit. It required patient-provider interaction for the medical decision making as documented below. I have communicated my name and active licensure. The patient's identity and physical location were verified at the time of this visit. Either the patient or their legal footwear sales representative has been informed of the [...] which included preparing to see the patient, [id number] patient care, completing clinical documentation, obtaining and/or reviewing separately obtained history, performing a medically appropriate examination, and counseling and educating the patient/family/caregiver. Jyoti Dickey PA-C Neuromuscular Medicine [address] [place] [address]. [phone] Appointment: [phone] During our virtual visit encounter we discussed [...] bright light?: Mild documented in this encounter [facility] 09-02-2024 Note HNO ID: [id number] Author: JYOTI DICKEY PA-C Service: ? Author Type: Physician Chief Of Pediatric Urology Type: Progress Notes Filed: 09/02/2024 11:21 Note Text: [facility] Follow-Up VIRTUAL VISIT This is a virtual visit using [employer] Video Visit. It required patient-provider interaction for the medical decision making as documented below. I have communicated my name and active licensure. The patient's identity and physical location were verified at the time of this visit. Either the patient or their legal footwear sales representative has been informed of the [...] female here t (more content not included)... [facility] 08-29-2024 Miscellaneous Notes Principal Statistical Programmer spoke to patient . Patient has complains of SOB which she states is mainly at night time. She has recently seen her PCP who stated that her lungs are tight/restricted and prescribed her an inhaler. Today the patient is feeling better and states that when she checked her SPO2 today it was at 96%. Principal Statistical Programmer advised patient to monitor and if her O2 Sat falls under 95% and/or the inhaler does not help to present to her nearest ER. Patient verbalized understanding. documented in this encounter [facility] 08-29-2024 Telephone encounter Note Principal Statistical Programmer spoke to patient . Patient has complains of SOB which she states is mainly at night time. She has recently seen her PCP who stated that her lungs are tight/restricted and prescribed her an inhaler. Today the patient is feeling better and states that when she checked her SPO2 today it was at 96%. Principal Statistical Programmer advised patient to monitor and if her O2 Sat falls under 95% and/or the inhaler does not help to present to her nearest ER. Patient verbalized understanding. [facility] 08-27-2024 Telephone encounter Note Alternative inhaler requested by pharmacy. [facility] 08-27-2024 Miscellaneous Notes Alternative inhaler requested by pharmacy. documented in this encounter [facility] 08-27-2024 History of Present [...] her asthma. She has not see her operations officer in a couple of years and her [...] fail to improve. documented in this encounter [facility] 08-13-2024 History of Present [...] no Have you been seen here at [facility] in a previous ? no Recent ER visits or hospitalizations? no Bring blood sugar log or meter with you today? (Please bring them with you for every visit at [facility]) n/a Flu vaccine (Jul-November)? Yes Any concerns that you would like me to mention to the provider today? no [facility] Consult Note Reason For Consult: HPI: Madyson Mai is a 23 y.o. @ 20w4d who presented for consultation from Dr. Malik, Osei Barragan DO regarding Chief Complaint Patient presents with [...] Resource Strain: Low Risk (02/25/2024) Received from [facility] Overall Financial Resource Strain (CARDIA) Difficulty of Paying Living Expenses: Not very hard Food Insecurity: No Food Insecurity (08/13/2024) Hunger Screening Food Insecurity - Worry: Never True Food Insecurity - Inability: Never True Transportation Needs: No Transportation Needs (02/25/2024) Received from [facility] PRAPARE - Transportation Lack of Transportation (Medical): No Lack of Transportation (Non-Medical): No Physical Activity: Inactive (02/25/2024) Received from [facility] Exercise Vital Sign Days of Exercise per Week: 0 days Minutes of Exercise per Session: 0 min Stress: No Stress Concern Present (02/25/2024) Received from [facility] [place] of Occupational Health - Occupational Stress Questionnaire Feeling of Stress : Only a little Social Connections: Moderately Integrated (02/25/2024) Received from [facility] Social Connection and Isolation Panel [NHANES] Frequency of Communication with Friends and Family: More than three times a week Frequency of Social Gatherings with Friends and Family: Three times a week Attends Mandaen Services: More than 4 times per year Active Member of Clubs or Organizations: No Attends Club or Organization Meetings: Patient declined Marital Status: Interpersonal Safety: Not on file Housing Instability: Low Risk (02/25/2024) Received from [facility] Housing Stability Vital Sign [...] complications, or both, related to use. The [place] [employer] and the [...] tachycardia syndrome) She follows with Neurology at [facility]. Last visit was on 07/02/2024. External records reviewed. 07/02/2024 - General Neurology, Joie Seaman APRN.RESIDENTIAL AIDE ASSESSMENT Madyson Mai is a 23 year [...] continue with routine care in your office [facility], the CDC, and other organizations representing maternal and public health professionals recommend that , , and lactating people and those considering receive the COVID-19 vaccination. Vaccination is the best method to reduce maternal and complications of SARS-CoV-2 infection. This document was created with [employer] technology. Though I make every effort to review the dictation as it is transcribed, on occasion the spoken word can be misinterpreted by the technology leading to inappropriate words, phrases, or sentences. This note is addressed to the requesting provider as a consultation for clinical guidance. Specific medical abbreviations are occasionally used and those are generally approved by the [place]?Board of?Obstetrics and?Gynecology?as well as?Loretta s abbreviations. The above plan of care was based solely on the diagnoses for which a consultation was requested. ?More frequent testing may be indicated based on her other medical/obstetrical conditions. The management of other or medical conditions is beyond the scope of requested consultation and will continue to be followed by the primary content manager or primary care provider. Thank you for [...] procedures Referring and communicating with other health child care associate (not separately reported) Documenting clinical information in the electronic or other health record Independently interpreting results (not separately reported) and communicating results to the patient/family/caregiver Care coordination (not separately reported) documented in this encounter [facility] 08-06-2024 Telephone encounter Note Can we have her schedule for a follow up appointment. Can be virtual or in person. Lesli, AM [facility] Work Phone: 08-06-2024 Miscellaneous Notes Can we have her schedule for a follow up appointment. Can be virtual or in person. Thanks, AM documented in this encounter [facility] 08-05-2024 History of Present illness Narrative Reason [...] nursing note reviewed. Exam conducted with a residential aide present. Vitals: Estimated body mass index is [...] obtained without difficulty and patient was given [facility] order to have obtained. Orders Placed This Encounter Procedures CHLAMYDIA TRACHOMATIS (GENITO/STI) Neisseria gonorrhea DNA probe, direct Alpha fetoprotein, maternal POCT urinalysis dipstick manually resulted Follow Up: Patient is to return to our office in 4 weeks for routine OB appointment Documented by Annika Silva LPN on behalf of: TOMASZ Rizvi documented in this encounter [facility] 07-03-2024 History of Present [...] ARTHROSCOPY W/ PLICA EXCISION Right 08/05/2021 Dr. Brown TONSILECTOMY, ADENOIDECTOMY, BILATERAL MYRINGOTOMY AND TUBES WISDOM [...] current . Patient is being referred to [facility] for her twin , gave her information about who she will be seeing there. No orders of the defined types were placed in this encounter. Follow Up: Patient is to return to office in 4 weeks for routine OB appointment. Documented by Ibis Sandoval on behalf of: TOMASZ Rizvi documented in this encounter [facility] 07-02-2024 History of Present illness Narrative Images from the original note were not included. [facility] Follow Up / Established Virtual Visit I have communicated my name and active licensure. The patient's identity and physical location were verified at the time of this visit. Either the patient or their legal footwear sales representative has been informed of the risks and benefits of -- and alternatives to -- treatment through a remote evaluation and consents to proceed with the evaluation remotely. Individuals who were included in, or assisted with the encounter were: Madyson Mai Joie Seaman APRN.RESIDENTIAL AIDE Chief Complaint/Issues: Madyson Mai is a 23 year old female seen in the [facility] for: POTS Most [...] Plan 07/02/2024 - General Neurology, Joie Seaman APRN.RESIDENTIAL AIDE ASSESSMENT Madyson Mai is a 23 year [...] which included preparing to see the patient, [id number] patient care, completing clinical documentation, obtaining and/or reviewing separately obtained history, performing a medically appropriate examination, counseling and educating the patient/family/caregiver, and ordering medications, tests, or procedures. Joie Seaman, YACHT HAND.RESIDENTIAL AIDE 06/28/2024 [facility] Physical Health Summary [...] and warrants attention documented in this encounter [facility] 07-02-2024 Note HNO ID: [id number] Author: JOIE SEAMAN APRN.CNP Service: ? Author Type: Nurse Practitioner Type: Progress Notes Filed: 07/02/2024 19:57 Note Text: [facility] Follow Up / Established Virtual Visit I have communicated my name and active licensure. The patient's identity and physical location were verified at the time of this visit. Either the patient or their legal footwear sales representative has been informed of the risks and benefits of -- and alternatives to -- treatment through a remote evaluation and consents to proceed with the evaluation remotely. Individuals who were included in, or assisted with the encounter were: Madyson Latesha Pau Seaman APRN.CNP Chief Complaint/Issues: Madyson Mai is a 23 year old female seen in the [facility] for: POTS Most [...] Plan 07/02/2024 - General Neurology, Joie Seaman APRN.RESIDENTIAL AIDE ASSESSMENT Madyson Mai is a 23 year [...] Mostly Moderately S (more content not included)... [facility] 06-04-2024 History of Present illness Narrative Reason [...] nursing note reviewed. Exam conducted with a residential aide present. Vitals: Estimated body mass index is [...] possibly adding medication. Pt being referred to [facility] for TWIN gestation. Expectations throughout regarding labs, ultrasounds, and appointments have been discussed with the patient in detail. It was reiterated that the patient is to drink 6-8 glasses of water a day, eat 6 small meals a day, do not consume raw or undercooked meat, and stay away from [facility]. Patient has been consulted regarding any further do's and don'ts of . Patient voiced understanding and all questions and concerns were answered. Orders Placed This Encounter Procedures POCT urinalysis dipstick manually resulted Follow Up: Patient is to return in 4 weeks for routine OB appointment. Documented by Camilla Bar LPN on behalf of: Osei Malik DO documented in this encounter [facility] 05-23-2024 History of Present [...] calculated from the following: Height as of 24: 5' 5 . Weight as of this [...] providers found * documented in this encounter [facility] 05-20-2024 History of Present [...] topical cream for less systemic absorption. Consider managed care director. Can provide pt with referral to PT if symptoms do not improve with the above. X-rays not yet indicated, especially as pt is . Follow up if symptoms worsen or fail to improve. documented in this encounter [facility] 03-20-2024 History of Present illness Narrative Images from the original note were not included. [facility] Follow-Up VIRTUAL VISIT This is a virtual visit using [employer] Video Visit. It required patient-provider interaction for the medical decision making as documented below. I have communicated my name and active licensure. The patient's identity and physical location were verified at the time of this visit. Either the patient or their legal footwear sales representative has been informed of the [...] which included preparing to see the patient, [id number] patient care, completing clinical documentation, obtaining and/or reviewing separately obtained history, performing a medically appropriate examination, counseling and educating the patient/family/caregiver, and ordering medications, tests, or procedures. Jyoti Dickey PA-C Neuromuscular Medicine [address] [place] [address]. [id number] Appointment: [phone] During our virtual visit encounter we discussed [...] problem? : Mild documented in this encounter [facility] 03-20-2024 Note HNO ID: [id number] Author: JYOTI DICKEY PA-C Service: ? Author Type: Physician Chief Of Pediatric Urology Type: Progress Notes Filed: 03/20/2024 15:17 Note Text: [facility] Follow-Up VIRTUAL VISIT This is a virtual visit using [employer] Video Visit. It required patient-provider interaction for the medical decision making as documented below. I have communicated my name and active licensure. The patient's identity and physical location were verified at the time of this visit. Either the patient or their legal footwear sales representative has been informed of the [...] the mean hea (more content not included)... [facility] 11-30-2023 History of Present illness Narrative Images from the original note were not included. [facility] New Patient Evaluation [...] experienced LOC while walking up the stairs. [place] prodromal symptoms including lightheadedness and tunnel vision. [...] 5/5 Knee Flexion 5/5 5/5 Knee Extension /5 5/5 Ankle Dorsiflexion /5 5/5 Ankle Plantarflexion /5 5/5 Movement/Coordination Finger-to- nose-finger and bhgy-sc-xatc intact bilaterally. No evidence of ataxia arms. [...] and toe vibration. Reflexes Right Left Bicep / 2/4 Tricep /12 24/4 Brachioradialis / 2/4 Patella /4 2/ Ankle /10/28 No Clonus Negative Babinski (toes curl down) [...] which included preparing to see the patient, [id number] patient care, completing clinical documentation, obtaining and/or [...] on 11/30/23. Jyoti Dickey PA-C Neuromuscular Medicine [address] [place] [address]. [id number] Appointment: [phone] 1. This office note has been dictated [...] problem? : Moderate documented in this encounter [facility] 11-30-2023 Note HNO ID: [id number] Author: JYOTI DICKEY PA-C Service: ? Author Type: Physician Chief Of Pediatric Urology Type: Progress Notes Filed: 11/30/2023 11:14 Note Text: [facility] New Patient Evaluation [...] experienced LOC while walking up the stairs. [place] prodromal symptoms including lightheadedness and tunnel vision. [...] breathing: - Tac (more content not included)... [facility] 11-12-2023 Note HNO ID: [id number] Author: ?, ?, ? Service: ? Author [...] Care Visit completed when applicable. Gauri Harris [facility] 11-12-2023 History of Present illness [...] applicable. Gauri Harris documented in this encounter [facility] 10-10-2023 Note HNO ID: [id number] Author: AURORA SANTIAGO PA-C Service: ? Author Type: Physician Chief Of Pediatric Urology Type: Progress Notes Filed: 10/10/2023 16:33 Note Text: [facility] New Patient Evaluation [...] No current facility-adminis (more content not included)... [facility] 10-10-2023 Note HNO ID: [id number] Author: ANGELIQUE RUTH MD Service: ? Author [...] VE Couplets or VE Triplets were present. [facility] 07-20-2023 Telephone encounter Note Call to Madyson to discuss referral to dysautonomia clinic. Informed her that we are unable to provide dysautonomia evaluation at this time. Provided number for [facility] scheduling service. No other needs at this time. [facility] 07-20-2023 Miscellaneous Notes Call to Madyson to discuss referral to dysautonomia clinic. Informed her that we are unable to provide dysautonomia evaluation at this time. Provided number for [facility] scheduling service. No other needs at this time. documented in this encounter [facility] 07-10-2023 Note HNO ID: [id number] Author: Jose Armando Grey, DO Service: ? Author Type: Physician Type: Progress Notes Filed: 07/10/2023 10:08 AM Note Text: [facility] Office Visit Documentation Note [facility] Sports Medicine Orthopaedic and Rheumatologic [place] HISTORY OF PRESENT ILLNESS (HPI) CHIEF COMPLAINT / REASON FOR VISIT SERVICE DATE: July 10, 2023 PCP: No primary care provider on file. Madyson Schmid is here today at request of Dr. Jose Armando Schmid specifically for consultation of my opinion in regards to the chief complaint listed below. Correspondence will be shared today via the [facility] electronic health record or through regular mail, [...] She need to consider PT or personal financial representative. Reaction knee brace Consider [place] toradol, did discuss orthobiologics Follow up: Films prior to visit: Written instructions (see patient instructions) and verbal health education given to patient. Patient verbalizes understanding and agrees with the treatment plan. Jose Armando Grey D.O. [facility] Orthopaedic and Rheumatologic [place], [facility] AND [facility] Program Team Physician, [facility] [employer] Consulting Physician, Mccamey Martin Nagel, Mental Health Specialist [phone] [facility] 07-10-2023 History of Present illness Narrative Images from the original note were not included. [facility] Office Visit Documentation Note [facility] Sports Medicine Orthopaedic and Rheumatologic [place] HISTORY OF PRESENT ILLNESS (HPI) CHIEF COMPLAINT / REASON FOR VISIT SERVICE DATE: July 10, 2023 PCP: No primary care provider on file. Madyson Schmid is here today at request of Dr. Jose Armando Schmid specifically for consultation of my opinion in regards to the chief complaint listed below. Correspondence will be shared today via the [facility] electronic health record or through regular mail, [...] She need to consider PT or personal financial representative. Reaction knee brace Consider [place] toradol, did discuss orthobiologics Follow up: Films prior to visit: Written instructions (see patient instructions) and verbal health education given to patient. Patient verbalizes understanding and agrees with the treatment plan. Jose Armando Grey D.O. [facility] Orthopaedic and Rheumatologic Fruit C[facility], [facility] & T.E.A.M. Program Team Physician, [facility] [employer] Consulting Physician, [facility] Martin Nagel, Mental Health Specialist [phone] documented in this encounter [facility] 12-28-2022 History of Present illness Narrative Madyson [...] surgery Evaluated by DR Case ([facility] [place]) in 2020 no rheum issue found and [...] Swollen Glands: No documented in this encounter [facility] 07-31-2022 History of Present illness Narrative Madyson [...] surgery Evaluated by DR Case ([facility] [place]) in 2020 no rheum issue found and [...] Swollen Glands: No documented in this encounter [facility] 07-10-2022 History of Present illness Narrative Most [...] she did get a second opinion in [place], and no change in medication was suggested [...] with paucity of objective findings on the [id number]. Abnormal tilt table test, with a combination [...] I will defer that to Dr. Maza MP-[facility] 250 DO Work Phone: 06-12-2022 Note Pre-procedure Verifi cation and Time Out: Pre-Procedure Verification and Time Out: Procedure Locationbedside PRE-PROCEDURE Verificationcompleted TIME OUT - Final Verificationcompleted immediately prior to procedure start General Information: Anesthesia Critical Care: Non-Anesthesia Date/Time of Procedure: 12-Jun-2022 Post-Procedure Diagnosis: syncope Procedure Name: tilt table test Findings: grossly normal anatomy Procedure performed by: or Chief Of Pediatric Urology(s): none Estimated Blood Loss (mL): none Specimen: [...] Last Updated: 14-Jun-2022 11:56 by Annalee Maza) [facility] ([place], [place]) 03-24-2022 History of Present illness Narrative Patient [...] while walking to the bathroom.She will see operations officer in the near future, she had her pulmonary function test which I reviewed, there is concern for chronic asthma, but no reactive airway disease.She has 3 dogs that she had, and 1 cat at home.She is not orthostatic. She is feeling palpitations quite a bit.Results of the pulmonary function test and a [place]ah of [place] was reviewed. Also reviewed stress test and [...] that, we will have to schedule at [facility], and patient is okay with driving.4. Lifestyle modifications such as regular aerobic activity as tolerated, excessive sodium intake, and possibly low-dose beta-blockers can be tried. If her breathing gets worse on the beta-blockers, then she should stop it. We will decide after seen by pulmonary, and also after the results of culpable test are available. -[facility] Cheek DO Work Phone: 03-24-2022 History of Present illness Narrative Patient was first seen in March 2022 and presents for follow-up after testing.She is a 21-year-old female who was seen in cardiology consultation at the request of Ibis Colbert, SCISSORS GRINDER, for bouts of severe shortness of breath. [...] while walking to the bathroom.She will see operations officer in the near future, she had her pulmonary function test which I reviewed, there is concern for chronic asthma, but no reactive airway disease.She has 3 dogs that she had, and 1 cat at home.She is not orthostatic. She is feeling palpitations quite a bit.Results of the pulmonary function test and a Micah of [place] was reviewed. Also reviewed stress test and [...] that, we will have to schedule at [facility], and patient is okay with driving.4. Lifestyle modifications such as regular aerobic activity as tolerated, excessive sodium intake, and possibly low-dose beta-blockers can be tried. If her breathing gets worse on the beta-blockers, then she should stop it. We will decide after seen by pulmonary, and also after the results of culpable test are available. -[facility]-Jose Cheek DO Work Phone: 02-02-2022 Miscellaneous [...] P Mathai, MD documented in this encounter [facility] 01-25-2022 History of Present illness Narrative Madyson [...] February Evaluated by DR Case ([facility] [place]) in 2020 no rheum issue found and [...] February Evaluated by DR Case ([facility] [place]) in 2020 no rheum issue found and [...] Irvin Hanna MD documented in this encounter [facility] 01-10-2022 Evaluation note Encounter Date Diagnosis Assessment Notes Dec, Skin rash (ICD-10 - R21) Dec, Other Transient recurrent 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. [facility] Other 01-17-2022 Evaluation note* Encounter Date Diagnosis [...] day as needed for pain and swelling. [facility] Other 07-01-2021 History of Present illness Narrative* [...] heart murmur and has been transferred to [facility] * There is no family [...] 3 times daily. New prescription sent. Consider [place] in the future. * Order 30-day monitor [...] needed, treatment options, risks, benefits, and imponderables. [place] [employer] lifestyle changes and behavioral modification discussed. All questions answered in detail. Counseling over 50% visit regarding above. Patientappreciative of care. * At the end the office visit, she did report that she will be seeing an phlebotomy specialist in [place]. We did discuss that she could hold [...] errors as software dictation application being used. -[facility] 320 DO Work Phone: [phone]) 847-400908-25-2020 History of Present illness Narrative* She is [...] exposed to secondhand smoke from her mother. -[facility]-[place] [employer] DO Work Phone: [phone] History of Present illness Narrative* Patient is [...] twin brother had to be taken to [facility], and has history of heart murmur. * [...] arise, * Sincerely, * Melodie alcaraz MD [facility] Work Phone: [phone]) 791-438807-01-2020 History of Present illness Narrative* Patient is [...] twin brother had to be taken to [facility], and has history of heart murmur. * [...] arise, * Sincerely, * Melodie alcaraz MD [place] [address] DO Work Phone: [phone] History of Present illness Narrative* Patient is [...] twin brother had to be taken to [facility], and has history of heart murmur. * [...] arise, * Sincerely, * Melodie alcaraz MD [facility] 250 DO Work Phone: [phone] 272-226201-01-2008 History general Narrative - Reported* Type Description Date Medical History general health good Surgical History tonsillectomy and adenoidectomy 09/2007 [facility] Other 01-01-2008 History general Narrative - Reported* Type Description Date Medical History general health good Surgical History tonsillectomy and adenoidectomy 09/2007 Surgical History right knee cleaned up scar tiss ue 2020 Intense Other Chief complaint Narrative - ReportedMADYSON SCHMID is being seen for a cardiovascular evaluation of abnormal test(s) results and dyspnea.-[facility] 250 DO Work Phone: Chiml complaint Narrative - ReportedMADYSON SCHMID is being seen for a cardiovascular evaluation of abnormal test(s) results and dyspnea.[facility] Work Phone: Evaluation + Plan note No data available for this section [facility] Diagnosis Pain and swelling of knee, right- Primary Joint stiffness Stiffness of joint, not elsewhere classified, unspecified site documented in this encounter [facility] noteNo assessment information availableAshtabula [facility] Work Phone: Evaluation note* Diagnosis Pain and swelling of knee, right- Primary Joint stiffness Stiffness of joint, not elsewhere classified, unspecified site Inflammatory arthritis Unspecified inflammatory polyarthropathy [facility] Diagnosis Pain and swelling of knee, right- Primary Joint stiffness Stiffness of joint, not elsewhere classified, unspecified site [facility]* Diagnosis Right knee pain, unspecified chronicity- Primary [facility]* Diagnosis Chronic pain of right knee- Primary Tendinopathy of gluteal region Unspecified disorder of synovium, tendon, and bursa documented [facility]* Diagnosis Orthostatic lightheadedness- Primary Dizziness and giddiness documented [facility]* Diagnosis POTS (postural orthostatic tachycardia syndrome)- Primary Tachycardia, unspecified [facility] Diagnosis POTS (postural orthostatic tachycardia syndrome)- Primary Tachycardia, unspecified [facility]* Diagnosis POTS (postural orthostatic tachycardia syndrome)- Primary Tachycardia, unspecified Near syncope Syncope and collapse [facility]* Diagnosis Second trimester state, incidental 14 weeks gestation of [facility] Diagnosis Thumb pain, [...] Leg cramping Heartburn documented in this encounter [facility]* Diagnosis Dichorionic diamniotic twin in second trimester- Primary POTS (postural orthostatic tachycardia syndrome) Unspecified tachycardia Asthma during 20 weeks gestation of documented [facility] encounter [facility]* Diagnosis Dichorionic diamniotic twin in second trimester- Primary POTS (postural orthostatic tachycardia syndrome) Unspecified tachycardia Asthma during 20 weeks gestation of documented in this encounter [facility]* Diagnosis Thumb pain, right- [...] of state, incidental documented in this encounter [facility] Diagnosis Thumb pain, right- Primary De Quervain's disease (tenosynovitis) Radial styloid tenosynovitis PCOS (polycystic ovarian syndrome) Polycystic ovaries POTS (postural orthostatic tachycardia syndrome) Unspecified tachycardia Tension headache- Primary Encounter for immunization POTS (postural orthostatic tachycardia syndrome) Unspecified tachycardia Well adult exam Routine general medical examination at a [facility] Dichorionic diamniotic twin in second [...] exam Routine general medical examination at a [facility] 25 weeks gestation of Second trimester [...] exam Routine general medical examination at a [facility] Third trimester state, incidental 29 [...] exam Routine general medical examination at a [facility] 29 weeks gestation of Third [...] heart murmur and had been transferred to [facility] * There is no change [...] patient that she saw Dr. Muñiz at [facility] for second opinion regarding neurally mediated syncope and near syncope. He agreed with evaluation and management and patient opted to follow-up here at [facility] in [place]. * Zio patch August 2022. All rhythms [...] needed, treatment options, risks, benefits, and imponderables. [place] [employer] lifestyle changes and behavioral modification discussed. All questions answered in detail. Counseling over 50% visit regarding above. Patient appreciative of care. * Grammar * Please excuse grammatical or dictation errors as software dictation application being used. [facility] 320 DO Work Phone: History of Present illness Narrative* The patient states she has been generally stable since the last visit. * Symptoms: denies chest pain at rest, denies exertional chest pain, denies dyspnea, stable fatigue, denies exercise intolerance, stable palpitations, denies edema, denies orthopnea, stable dizziness and stable orthostatic dizziness. * Disease Monitoring: [facility] 600 DO Work Phone: Hospital Discharge instructions No data available for this section [facility]InstructionsNot on filedocumented in this encounter [facility]Not on filedocumented in this encounter [facility] SystemInstructionsNot on filedocumented in this encounter [facility] SystemInstructionsNot on filedocumented in this encounter [facility] SystemInstructionsNot on filedocumented in this encounter [facility] SystemProgress note No data available for this section [facility] WestReason for referral (narrative)* Diagnostic Procedure Only (Routine) - Pending Review Specialty Diagnoses / Procedures Referred By Rachel lópez Referred To Contact XR IMAGING Diagnoses Right knee pain, unspecified chronicity Procedures XR KNEE GENERAL 4V AP BOTH/PA BOTH/LAT/MERC RIGHT RADIOLOGIC EXAM KNEE COMPLETE 4/[place] [address] [place] [address] [place] [id number] Referral ID Status Reason Start Date Expiration Date Visits Requested Visits Authorized [id number] Pending Review Auto-Generat ed Referral 3 08/04/2024 1 1 [facility] for visit [facility] knee referral from Cj Theodore, She gets a funny rash on her knee and [place] Payment plugin Other Summary Purpose Family History Unknown Family [...] or prosecute any alcohol or drug abuse patient.[facility] SouthIn the event this information is protected by the Federal Confidentiality of Alcohol and Drug Abuse Patient Records regulations: The Federal rules restrict any use of the information to criminally investigate or prosecute any alcohol or drug abuse patient.[facility] SouthIn the event this information is protected by the Federal Confidentiality of Alcohol and Drug Abuse Patient Records regulations: The Federal rules restrict any use of the information to criminally investigate or prosecute any alcohol or drug abuse patient.[facility] SouthIn the event this information is protected by the Federal Confidentiality of Alcohol and Drug Abuse Patient Records regulations: The Federal rules restrict any use of the information to criminally investigate or prosecute any alcohol or drug abuse patient.[facility] SouthIn the event this information is protected by the Federal Confidentiality of Alcohol and Drug Abuse Patient Records regulations: The Federal rules restrict any use of the information to criminally investigate or prosecute any alcohol or drug abuse patient.[facility] SouthIn the event this information is protected by the Federal Confidentiality of Alcohol and Drug Abuse Patient Records regulations: The Federal rules restrict any use of the information to criminally investigate or prosecute any alcohol or drug abuse patient.[facility] SouthIn the event this information is protected by the Federal Confidentiality of Alcohol and Drug Abuse Patient Records regulations: The Federal rules restrict any use of the information to criminally investigate or prosecute any alcohol or drug abuse patient.[facility] SouthIn the event this information is protected by the Federal Confidentiality of Alcohol and Drug Abuse Patient Records regulations: The Federal rules restrict any use of the information to criminally investigate or prosecute any alcohol or drug abuse patient.[facility] SouthIn the event this information is protected by the Federal Confidentiality of Alcohol and Drug Abuse Patient Records regulations: The Federal rules restrict any use of the information to criminally investigate or prosecute any alcohol or drug abuse patient.[facility] SouthIn the event this information is protected by the Federal Confidentiality of Alcohol and Drug Abuse Patient Records regulations: The Federal rules restrict any use of the information to criminally investigate or prosecute any alcohol or drug abuse patient.[facility] SouthIn the event this information is protected by the Federal Confidentiality of Alcohol and Drug Abuse Patient Records regulations: The Federal rules restrict any use of the information to criminally investigate or prosecute any alcohol or drug abuse patient.[facility] SouthIn the event this information is protected by the Federal Confidentiality of Alcohol and Drug Abuse Patient Records regulations: The Federal rules restrict any use of the information to criminally investigate or prosecute any alcohol or drug abuse patient.[facility] SouthIn the event this information is protected by the Federal Confidentiality of Alcohol and Drug Abuse Patient Records regulations: The Federal rules restrict any use of the information to criminally investigate or prosecute any alcohol or drug abuse patient.[facility] Reason for Visit (unrecogniz ed section and content) Reason Comments New Patient Reason Comments Orders Reason Comments Follow Up Reason Comments 4 Month Follow Up Reason Onset Date Comments Referral Follow-up 07/20/2023 Reason Comments Procedure Reason Comments New Patient Consult Reason Comments Follow Up Reason Comments POTS Reason Comments Routine Visit Reason Comments Well Women Visit Routine Visit STI Screening Reason Comments [place] POTS Reason Comments Amenorrhea INFORMATION SOURCE (unrecogn ized section and content) DATE CREATED AUTHOR 02/03/2022 [facility] DATE CREATED AUTHOR AUTHOR'S ORGANIZ ATION 06/24/2022 [place] [facility] DATE CREATED AUTHOR AUTHOR'S ORGANIZ ATION 09/15/2022 [facility] DATE CREATED AUTHOR AUTHOR'S ORGANIZ ATION 03/16/2023 [facility] DATE CREATED AUTHOR AUTHOR'S ORGANIZ ATION 06/15/2023 [facility] DATE CREATED AUTHOR AUTHOR'S ORGANIZ ATION 07/11/2023 [facility] DATE CREATED AUTHOR AUTHOR'S ORGANIZ ATION 03/15/2024 [place] [facility] DATE CREATED AUTHOR AUTHOR'S ORGANIZ ATION 04/15/2024 [place] [facility] DATE CREATED AUTHOR AUTHOR'S ORGANIZ ATION 07/11/2024 [facility] DATE CREATED AUTHOR AUTHOR'S ORGANIZ ATION 07/26/2024 [place] [facility] DATE CREATED AUTHOR AUTHOR'S ORGANIZ ATION 09/05/2024 [facility] DATE CREATED AUTHOR AUTHOR'S ORGANIZ ATION 10/17/2024 [facility] dical Specialists [facility] DATE CREATED AUTHOR AUTHOR'S ORGANIZ ATION 10/18/2024 [facility] Care Teams (unrecognized sec tion and content) Team Status: Inactive Member Role Status Dates JULIUS HarleyC Primary Care Provider Activ CARLOS Dowling Attending [...] Role Status Dates Ibis Maggy Myra , SCISSORS GRINDER-C Primary Care Provider Activ e Christina Perez , YACHT HAND Attending Provider Active Team Status: Inactive Member Role Status Dates Ibis Renteria , SCISSORS GRINDER-C Primary Care Provider Activ e Carlitos Nguyen Jr, DO Attending Provider Active Paint And Table Edger Relationship Specialty Start Date End Date Susan Renteriaeren Díaz, RESIDENTIAL AIDE [address] [place] [address] PCP - General Nurse Practitioner 07/09/23 Paint And Table Edger Relationship Specialty Start Date End Date Ibis Renteria RESIDENTIAL AIDE [address] [place] [address] PCP - General Nurse Practitioner 07/09/23 Team Status: Inactive Member Role Status Dates Ibis Renteria , SCISSORS GRINDER-C Primary Care Provider Activ e Hrais Martino , DO Emergency Provider Active Team Status: Inactive Member Role Status Dates Ibis Renteria , SCISSORS GRINDER-C Primary Care Provider Activ e Nam Barnes , DO [facility] Attending Provider Active Paint And Table Edger Relationship Specialty Start Date End Date Jb Mandujano MD [address] [address] PCP - General Family Medicine 05/20/24 Osei Malik DO [address] [place] [address] Referring Physician Obstetrics and Gynecology 06/05/24 Flori Gil PA [address] [place] [address] Physician Chief Of Pediatric Urology Obstetrics and Gynecology 06/05/24 Paint And Table Edger Relationship Specialty Start Date End Date Jb Mandujano MD [address] [id number] PCP - General Family Medicine 05/20/24 Osei Malik, [address] [place] [address] Referring Physician Obstetrics and Gynecology 06/05/24 Flori Gil PA [address] [place] [address] Physician Chief Of Pediatric Urology Obstetrics and Gynecology 06/05/24 Paint And Table Edger Relationship Specialty Start Date End Date Ander Boateng MD [address] [place] [address] PCP - General 11/30/17 Paint And Table Edger Relationship Specialty Start Date End Date Jb Mandujano MD [address] [facility] [address] [place] [address] PCP - General Family Medicine 05/20/24 Osei Malik, DO [address] [place] [address] Referring Physician Obstetrics and Gynecology 06/05/24 Flori Gil PA [address] [place] [address] Physician Chief Of Pediatric Urology Obstetrics and Gynecology 06/05/24 Paint And Table Edger Relationship Specialty Start Date End Date Jb Mandujano MD [address] [facility] [address] [place] [address] PCP - General Family Medicine 05/20/24 Osei Malik DO [address] [place] [address] Referring Physician Obstetrics and Gynecology 06/05/24 Flori Gil PA [address] [place] [address] Physician Chief Of Pediatric Urology Obstetrics and Gynecology 06/05/24 Paint And Table Edger Relationship Specialty Start Date End Date Jb Mandujano MD [address] [facility] [address] [place] [address] PCP - General Family Medicine 05/20/24 Osei Malik DO [address] [place], [place] [address] [address] Referring Physician Obstetrics and Gynecology 06/05/24 Flori Gil PA [address] [place], [place] [address] [place] [address] Physician Chief Of Pediatric Urology Obstetrics and Gynecology 06/05/24 Paint And Table Edger Relationship Specialty Start Date End Date Ander Boateng MD [address] [place] [address] PCP - General 11/30/17 Paint And Table Edger Relationship Specialty Start Date End Date Jb Mandujano MD [address] [facility] [address] [place] [address] PCP - General Family Medicine 05/20/24 Osei Malik DO [address] [place], [place] [address] [address] Referring Physician Obstetrics and Gynecology 06/05/24 Flori Gil PA [address] [place], [place] [address] [place] [address] Physician Chief Of Pediatric Urology Obstetrics and Gynecology 06/05/24 Paint And Table Edger Relationship Specialty Start Date End Date Jb Mandujano MD [address] [place] [address] [place] [address] PCP - General Family Medicine 05/20/24 Osei Malik DO [address] [place] [address] Referring Physician Obstetrics and Gynecology 06/05/24 Flori Gil PA [address] [place] [address] Physician Chief Of Pediatric Urology Obstetrics and Gynecology 06/05/24 Paint And Table Edger Relationship Specialty Start Date End Date Ander Boateng MD [address] [place] [address] PCP - General 11/30/17 Paint And Table Edger Relationship Specialty Start Date End Date Jb Mandujano MD [address] [address] [place] [address] PCP - General Family Medicine 05/20/24 Osei Malik, [address] [place] [address] Referring Physician Obstetrics and Gynecology 06/05/24 Flori Gil PA [address] [place] [address] Physician Chief Of Pediatric Urology Obstetrics and Gynecology 06/05/24 Paint And Table Edger Relationship Specialty Start Date End Date Jb Mandujano MD [address] [facility] [place] [address] PCP - General Family Medicine 05/20/24 Osei Malik, [address] [place] [address] Referring Physician Obstetrics and Gynecology 06/05/24 Flori Gil PA [address] [place], [place] [address]ven[place], [place] [id number] Physician Chief Of Pediatric Urology Obstetrics and Gynecology 06/05/24 Paint And Table Edger Relationship Specialty Start Date End Date Ander Boateng MD [address] [place] [address] PCP - General 11/30/17 Paint And Table Edger Relationship Specialty Start Date End Date Jb Mandujano MD [address] [facility] [address] [place] [address] PCP - General Family Medicine 05/20/24 Osei Malik DO [address] [place], [place] [address] [address] Referring Physician Obstetrics and Gynecology 06/05/24 Flori Gil PA [address] [place] [address] [place] [id number] Physician Chief Of Pediatric Urology Obstetrics and Gynecology 06/05/24 Paint And Table Edger Relationship Specialty Start Date End Date Jb Mandujano MD [address] [place] [address] PCP - General Family Medicine 05/20/24 Paint And Table Edger Relationship Specialty Start Date End Date Jb Mandujano MD [address] [facility] [address] [place] [address] PCP - General Family Medicine 05/20/24 Paint And Table Edger Relationship Specialty Start Date End Date Jb Mandujano MD [address] [facility] [address] [place] [address] PCP - General Family Medicine 05/20/24 Paint And Table Edger Relationship Specialty Start Date End Date Jb Mandujano MD [address] [facility] [address] [place] [address] PCP - General Family Medicine 05/20/24 Paint And Table Edger Relationship Specialty Start Date End Date Jb Mandujano MD [address] [facility] [address] [place] [address] PCP - General Family Medicine 05/20/24 Osei Malik DO [address] [place] [address] Referring Physician Obstetrics and Gynecology 06/05/24 Flori Gil PA [address] [place] [address] Physician Chief Of Pediatric Urology Obstetrics and Gynecology 06/05/24 Paint And Table Edger Relationship Specialty Start Date End Date Jb Mandujano MD [address] [facility] [address] [place] [address] PCP - General Family Medicine 05/20/24 Osei Malik, DO [address] [place] [address] Referring Physician Obstetrics and Gynecology 06/05/24 Flori Gil PA [address] [place] [address] Physician Chief Of Pediatric Urology Obstetrics and Gynecology 06/05/24 Paint And Table Edger Relationship Specialty Start Date End Date Jb Mandujano MD [address] [facility] 110 [place] [address] PCP - General Family Medicine 05/20/24 Osei Malik, DO [address] [place] [address] Referring Physician Obstetrics and Gynecology 06/05/24 Flori Gil PA [address] [place] [address] Physician Chief Of Pediatric Urology Obstetrics and Gynecology 06/05/24 Paint And Table Edger Relationship Specialty Start Date End Date Jb Mandujano MD [address] [facility] [address] [place] [address] PCP - General Family Medicine 05/20/24 Osei Malik, DO [address] [place] [address] Referring Physician Obstetrics and Gynecology 06/05/24 Flori Gil PA [address] [place] [address] Physician Chief Of Pediatric Urology Obstetrics and Gynecology 06/05/24 Paint And Table Edger Relationship Specialty Start Date End Date Ander Boateng MD [address] [place] [address] PCP - General 11/30/17 Paint And Table Edger Relationship Specialty Start Date End Date Jb Mandujano MD [address] [facility] [address] [place] [address] PCP - General Family Medicine 05/20/24 Osei Malik, DO [address] [place] [address] Referring Physician Obstetrics and Gynecology 06/05/24 Flori Gil PA [facility] [place] [address] Physician Chief Of Pediatric Urology Obstetrics and Gynecology 06/05/24 Paint And Table Edger Relationship Specialty Start Date End Date Jb Mandujano MD [address] [facility] [address] [place] [address] PCP - General Family Medicine 05/20/24 Osei Malik DO [facility] [place] [address] Referring Physician Obstetrics and Gynecology 06/05/24 Flori Gil PA [facility] [place] [address] Physician Chief Of Pediatric Urology Obstetrics and Gynecology 06/05/24 Paint And Table Edger Relationship Specialty Start Date End Date Ander Boateng MD [address] [place] [address] PCP - General 11/30/17 Paint And Table Edger Relationship Specialty Start Date End Date Jb Mandujano MD [address] [facility] 110 [place] [address] PCP - General Family Medicine 05/20/24 Osei Malik DO [facility] [place] [address] Referring Physician Obstetrics and Gynecology 06/05/24 Flori Gil PA [facility] [place] [address] Physician Chief Of Pediatric Urology Obstetrics and Gynecology 06/05/24 Goals (unrecognized section [...] BE BASED ON THE PRIMARY CLINICAL RECORDS. [facility]. provides no warranty or guarantee of the accuracy or completeness of information in this document.
--- NOTE | 2024-10-29 17:25 | US_ITS ---
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 TECHNIQUE: Ultrasound biophysical profile was performed in the radiology department. non-reactive stress testing was performed by nursing staff in the birthing center FINDINGS: BABY A BREATHING MOVEMENTS: 2 GROSS BODY MOVEMENTS: 2 TONE: 2 QUALITATIVE AMNIOTIC FLUID VOLUME:2 PRESENTATION: Cephalic HEART RATE: 130 bpm AMNIOTIC FLUID VOLUME: Largest pocket 5.4 x 3.9 cm GESTATIONAL AGE: 31 weeks 4 days BABY B BREATHING MOVEMENTS: 2 GROSS BODY MOVEMENTS: 2 TONE: 2 QUALITATIVE AMNIOTIC FLUID VOLUME:2 PRESENTATION: Transverse, head maternal left HEART RATE: 142 bpm AMNIOTIC FLUID VOLUME: Largest pocket 4.4 x 4.7 cm GESTATIONAL AGE: 31 weeks 4 days CONCLUSION: Total biophysical profile score for baby A 8 and baby B 8. Electronically authenticated by: TIM FRANCE Date: 10/30/2024 07:30
--- NOTE | 2024-10-29 17:25 | US_ITS ---
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 TECHNIQUE: Ultrasound biophysical profile was performed in the radiology department. non-reactive stress testing was performed by nursing staff in the birthing center FINDINGS: BABY A BREATHING MOVEMENTS: 2 GROSS BODY MOVEMENTS: 2 TONE: 2 QUALITATIVE AMNIOTIC FLUID VOLUME:2 PRESENTATION: Cephalic HEART RATE: 130 bpm AMNIOTIC FLUID VOLUME: Largest pocket 5.4 x 3.9 cm GESTATIONAL AGE: 31 weeks 4 days BABY B BREATHING MOVEMENTS: 2 GROSS BODY MOVEMENTS: 2 TONE: 2 QUALITATIVE AMNIOTIC FLUID VOLUME:2 PRESENTATION: Transverse, head maternal left HEART RATE: 142 bpm AMNIOTIC FLUID VOLUME: Largest pocket 4.4 x 4.7 cm GESTATIONAL AGE: 31 weeks 4 days CONCLUSION: Total biophysical profile score for baby A 8 and baby B 8. Electronically authenticated by: TIM FRANCE Date: 10/30/2024 07:30
== END 2024-10-29 18:15 | disposition home or self-care (01) ==
LOC: US 01:09 → FBC 17:02
PROVIDERS: PCP Family Medicine; Visit Provider Obstetrics & Gynecology
DX: O30.043 Twin pregnancy, dichorionic/diamniotic, third trimester (principal); Z3A.31 31 weeks gestation of pregnancy
CPT/HCPCS: 59025; 76818

== ENCOUNTER 2024-11-01 00:35 | Outpatient (OUT) | payer OTHER, SELFPAY ==
--- OUTSIDE RECORDS SUMMARY | 2024-11-01 00:39 | XMS_ITS | CCD ---
Author Organization [facility] Care Team Providers Care Traffic Maintenance Officer Name Role Phone Unavailable Primary Care Provider Unavailsoniya e Christina Pearce Unavailable Ok Mckeon Unavailable Ibis Renteria Unavailable Unavailable Unavailable CARLOS Renteria Primary Care Provider MD Melodie Alcaraz Attending Provider MD Álvaro Osborn Referring Provider [phone] CARLOS Davidson Attending Provider JOHNNY Pearce Emergency Provider [phone] Link, Dr. Annalee Torres Attending Unavailab celine [...] Provider DO Carlitos Nguyen Jr Attending Provider [phone] Dr. Annalee Maza Attending Unavailab le Link, [...] Myra Ibis GOODSON Primary Care Provider [phone] Myra, BROADCAST SYSTEMS ENGINEER-C Ibis Winter Primary Care Provider DO Haris Martino Emergency Provider DO Nam Barnes Attending Provider [phone] JB MANDUJANO Primary Care Physician Rinkes, Celeste Admitting Unavailable Rinkes, Celeste Attending Unavailable Jocelin FELIX Attending Unavailable Mae, TANK TESTER Krista L Attending Unavailable Mae, TANK TESTER Krista L Attending Unavailable Unavailable Primary Care Provider Unavailabl e Rinkes, Celeste Attending Unavailable Rinkes, Celeste Admitting Unavailable Rinkes, Celeste Attending Unavailable Rinkes, Celeste Admitting Unavailable Jb Mandujano MD Primary Care Provider Osei Malik DO Unavailable Flori Sam Unavailable Ander Boateng MD [facility] Admitting Unavailable Ibis Renteria Primary Care Unavailable [...] / oxyCODONE; Translations: [acetaminophen-o xycodone] Drug Allergy [facility] Comment on above: no narcotics, GI ups et Chlorhexidine (1 source) Chlorhexidine; Translations: [chlorhexidine topical] Drug Allergy Itching [facility] Corticosteroids (1 source) predniSONE; Translations: [prednisone] Drug Allergy [facility] (15 sources) Morphinan opioid; Translations: [OPIOIDS - MORPHINE ANALOGUES] Propensity to adverse reactions to drug 01-26-20 Other: See Comments [facility] (20 sources) predniSONE; Translations: [predniSONE] Drug Allergy 01-26-20 22 Other: See Comments, Dizziness [facility] (20 sources) prednisoLONE; Translations: [prednisolone] Drug Allergy 01-11-20 22 GI Disturbance [facility] Other (15 sources) Fludrocortisone; Translations: [Florinef TABS] Drug Allergy Nausea [facility] DO Work Phone: (20 sources) Midodrine; Translations: [midodrine] Drug Allergy 08-13-20 23 GI bleeding [facility] (3 sources) Acetaminophen / oxyCODONE; Translations: [Percocet] Drug Allergy [facility] (4 sources) Chlorhexidine; Translations: [chlorhexidine topical] Drug Allergy Itching [facility] (7 sources) Acetaminophen / oxyCODONE; Translations: [acetaminophen-o xycodone] Drug Allergy 07-07-20 24 GI Disturbance [facility] [place] Comment on above: no narcotics, GI ups et (20 sources) Acetaminophen / oxyCODONE; Translations: [OXYCODONE-ACETA MINOPHEN] Drug Allergy 02-26-20 24 [facility] (20 sources) Chlorhexidine; Translations: [CHLORHEXIDINE] Drug Allergy 02-21-20 23 Itching [facility] Work Phone: (20 sources) Fludrocortisone; Translations: [FLUDROCORTISONE ] Drug Allergy 07-26-20 22 Nausea [facility] (20 sources) Prednisone Allergy to substance 02-18-20 23 Dizziness [facility] (1 source) predniSONE Drug Allergy 06-08-20 23 [facility] Repository Medications Current Medications Medication Drug Class(es) Dates Sig (Normalized) Sig (Original) [id number] 200 actuat albuterol 0.09 mg/actuat metered dose [...] this medication. 14 tablet 08/07/2024 08/14/2024 Active [place] (No Known Home Meds) (1 source) Start: [place] (No Known Home Meds) Active June 08, 2023 12:00am omeprazole 40 mg delayed release oral capsule (20 sources) Proton Pump Inhibitor Start: End: take 1 capsule by mouth before mealtime omeprazole (PriLOSEC) [address] capsule Indications: Heartburn Take 1 capsule (40 mg) by mouth in the morning. Take before meals. Do not crush or chew.. 30 capsule 11 10/29/2024 10/29/2025 Active Start: 08-05-2024 End: 08-05-2025 take 1 capsule by mouth before mealtime omeprazole (PriLOSEC) [address] capsule Indications: Heartburn Take 1 capsule (20 mg) by mouth in the morning. Take before meals. Do not crush or chew.. 30 capsule 08/05/2024 08/05/2025 Active Start: 12-11-2023 take 1 capsule by mo uth once daily omeprazole 40 mg Cap-DR 40 [...] 30 Refills: 6 Ordered: 13-Jun-2023 [place] MICHELLETabatha Start : 13-Jun-2023 Active methotrexate 2.5 mg [...] Active Start: 07-10-2022 take 0.5 tablet by [facility] three times daily Midodrine HCl - [...] tolerance complicating ; childbirth; or the puerperium (17 sources) Gestational diabetes mellitus; Translations: [Gestational diabetes [...] of ] 09-18-2024 Episodic Residual codes; unclassified (17 sources) Gestation period, 29 weeks; Translations: [29 [...] No Panel InformationOrdered By: Radiologist Radiology on 10-30-2024 [facility] Work Phone: No Panel Informationon 10-30 Radiology Study observation (narrative) [facility] OB BPP W NON-STRESS on 10-30-2024 [place] [address] Ultrasound Report Signed Patient: MADYSON MAI MR#: [id number] : 2000 Acct:[id number] Age/Sex: 23 / F ADM Date: 10/29/24 Loc: US Attending Dr: Osei Malik D.O. Ordering Physician: Osei Malik D.O. Date of Service: 10/29/24 Procedure(s): US OB BPP w non-stress Accession Number(s): [id number] cc: JB MANDUJANO ; Osei Malik D.O. 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 TECHNIQUE: Ultrasound biophysical profile was performed in the radiology department. non-reactive stress testing was performed by nursing staff in the birthing center FINDINGS: BABY A BREATHING MOVEMENTS: 2 GROSS BODY MOVEMENTS: 2 TONE: 2 QUALITATIVE AMNIOTIC FLUID VOLUME:2 PRESENTATION: Cephalic HEART RATE: 130 bpm AMNIOTIC FLUID VOLUME: Largest pocket 5.4 x 3.9 cm GESTATIONAL AGE: 31 weeks 4 days BABY B BREATHING MOVEMENTS: 2 GROSS BODY MOVEMENTS: 2 TONE: 2 QUALITATIVE AMNIOTIC FLUID VOLUME:2 PRESENTATION: Transverse, head maternal left HEART RATE: 142 bpm AMNIOTIC FLUID VOLUME: Largest pocket 4.4 x 4.7 cm GESTATIONAL AGE: 31 weeks 4 days CONCLUSION: Total biophysical profile score for baby A 8 and baby B 8. Electronically authenticated by: TIM CONTRERAS Date: 10/30/2024 07:30 Dictated By: Tim Contreras M.D. Signed By: 10/30/24 0733 DD/ 9 TD/TT: Rack Loader: [facility] Radiology, Radiologi MD billy - 10/30/[address] [address] Ultrasound Report Signed Patient: MADYSON MAI MR#: [id number] : 2000 Acct:[id number] Age/Sex: 23 / F ADM Date: 10/29/24 Loc: US Attending Dr: Osei Malik D.O. Ordering Physician: Osei Malik D.O. Date of Service: 10/29/24 Procedure(s): US OB BPP w non-stress Accession Number(s): [id number] cc: JB MANDUJANO ; Osei Malik D.O. 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 TECHNIQUE: Ultrasound biophysical profile was performed in the radiology department. non-reactive stress testing was performed by nursing staff in the birthing center FINDINGS: BABY A BREATHING MOVEMENTS: 2 GROSS BODY MOVEMENTS: 2 TONE: 2 QUALITATIVE AMNIOTIC FLUID VOLUME:2 PRESENTATION: Cephalic HEART RATE: 130 bpm AMNIOTIC FLUID VOLUME: Largest pocket 5.4 x 3.9 cm GESTATIONAL AGE: 31 weeks 4 days BABY B BREATHING MOVEMENTS: 2 GROSS BODY MOVEMENTS: 2 TONE: 2 QUALITATIVE AMNIOTIC FLUID VOLUME:2 PRESENTATION: Transverse, head maternal left HEART RATE: 142 bpm AMNIOTIC FLUID VOLUME: Largest pocket 4.4 x 4.7 cm GESTATIONAL AGE: 31 weeks 4 days CONCLUSION: Total biophysical profile score for baby A 8 and baby B 8. Electronically authenticated by: TIM CONTRERAS Date: 10/30/2024 07:30 Dictated By: Tim Contreras M.D. Signed By: 10/30/2433 DD/ 9 TD/TT: Rack Loader: [place] [address] Ultrasound Report Signed Patient: MADYSON MAI MR#: [id number] : 2000 Acct:[id number] Age/Sex: 23 / F ADM Date: 10/29/24 Loc: US Attending Dr: Osei Malik D.O. Ordering Physician: Osei Malik D.O. Date of Service: 10/29/24 Procedure(s): US OB BPP w non-stress Accession Number(s): [id number] cc: JB MANDUJANO ; Osei Malik D.O. 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 TECHNIQUE: Ultrasound biophysical profile was performed in the radiology department. non-reactive stress testing was performed by nursing staff in the birthing center FINDINGS: BABY A BREATHING MOVEMENTS: 2 GROSS BODY MOVEMENTS: 2 TONE: 2 QUALITATIVE AMNIOTIC FLUID VOLUME:2 PRESENTATION: Cephalic HEART RATE: 130 bpm AMNIOTIC FLUID VOLUME: Largest pocket 5.4 x 3.9 cm GESTATIONAL AGE: 31 weeks 4 days BABY B BREATHING MOVEMENTS: 2 GROSS BODY MOVEMENTS: 2 TONE: 2 QUALITATIVE AMNIOTIC FLUID VOLUME:2 PRESENTATION: Transverse, head maternal left HEART RATE: 142 bpm AMNIOTIC FLUID VOLUME: Largest pocket 4.4 x 4.7 cm GESTATIONAL AGE: 31 weeks 4 days CONCLUSION: Total biophysical profile score for baby A 8 and baby B 8. Electronically authenticated by: TIM CONTRERAS Date: 10/30/2024 07:30 Dictated By: Tim Contreras M.D. Signed By: 10/30/24 0733 DD/ TD/TT: Rack Loader: [facility] Radiology, Radiologi MD billy - 10/30/2024 [place] [address] Ultrasound Report Signed Patient: MADYSON MAI MR#: [id number] : 2000 Acct:[id number] Age/Sex: 23 / F ADM Date: 10/29/24 Loc: US Attending Dr: Osei Malik D.O. Ordering Physician: Osei Malik D.O. Date of Service: 10/29/24 Procedure(s): US OB BPP w non-stress Accession Number(s): [id number] cc: JB MANDUJANO ; Osei Malik D.O. 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 TECHNIQUE: Ultrasound biophysical profile was performed in the radiology department. non-reactive stress testing was performed by nursing staff in the birthing center FINDINGS: BABY A BREATHING MOVEMENTS: 2 GROSS BODY MOVEMENTS: 2 TONE: 2 QUALITATIVE AMNIOTIC FLUID VOLUME:2 PRESENTATION: Cephalic HEART RATE: 130 bpm AMNIOTIC FLUID VOLUME: Largest pocket 5.4 x 3.9 cm GESTATIONAL AGE: 31 weeks 4 days BABY B BREATHING MOVEMENTS: 2 GROSS BODY MOVEMENTS: 2 TONE: 2 QUALITATIVE AMNIOTIC FLUID VOLUME:2 PRESENTATION: Transverse, head maternal left HEART RATE: 142 bpm AMNIOTIC FLUID VOLUME: Largest pocket 4.4 x 4.7 cm GESTATIONAL AGE: 31 weeks 4 days CONCLUSION: Total biophysical profile score for baby A 8 and baby B 8. Electronically authenticated by: TIM CONTRERAS Date: 10/30/2024 07:30 Dictated By: Tim Contreras M.D. Signed By: 10/30/24 0733 DD/ 0730 TD/TT: Rack Loader: [facility] Chest vessels Cory hodgson Luiz 10-27-[address] [address] [address] Scan Report Signed Patient: MADYSON MAI MR#: [id number] : 2000 Acct:[id number] Age/Sex: 23 / F ADM Date: Loc: [facility] 251-[address]: Osei Malik D.O. Ordering Physician: Osei Malik D.O. Date of Service: 10/27/24 Procedure(s): CT angio chest Accession Number(s): [id number] cc: JB MANDUJANO [place] [address] Patient Name: MADYSON MAI MRN: [id number] date: 2000 Sex: F Assigned Patient Location: [facility] Current Patient Location: [facility] Accession/Order Number: [id number] Exam Date: 10/27/2024 15:20 Report Date: 10/27/2024 [...] Signed By: 10/27/24 1556 DD/ 1554 TD/TT: Rack Loader: [facility] Radiology, Radiologi MD billy - 10/27/2024 [place] [address] CT Scan Report Signed Patient: MADYSON MAI MR#: [id number] : 2000 Acct:[id number] Age/Sex: 23 / F ADM Date: Loc: [facility] 251-[address]: Osei Malik D.O. Ordering Physician: Osei Malik D.O. Date of Service: 10/27/24 Procedure(s): CT angio chest Accession Number(s): [id number] cc: JB MANDUJANO [place] [id number] Patient Name: MADYSON MAI MRN: [facility]:[id number] date: 2000 Sex: F Assigned Patient Location: [facility] Current Patient Location: [facility] Accession/Order Number: [id number] Exam Date: 10/27/2024 15:20 Report Date: 10/27/2024 [...] Small M.D. Signed By: 10/27/24 1556 DD/ 53 TD/TT: Rack Loader: [facility] Radiology Study observation (narrative) [facility] CTA Chest vessels WO and W c ontrast IVOrdered By: Radiologist Radiology on 10-27-2024 [facility] Work Phone: ECG 12-LEADon 10-27-2024 [place] [address] Electrocardiograph Report Signed Patient: MADYSON MAI MR#: [id number] : 2000 Acct:[id number] Age/Sex: 23 / F ADM Date: Loc: [place] [address]: Osei Malik D.O. Ordering Physician: Osei Malik D.O. Date of Service: 10/27/24 Procedure(s): ECG 12 lead Accession Number(s): [id number] cc: [facility] Test Date: 2024-10-27 Pat Name: MADYSON MAI Department: Room: [facility] Gender: Female Audit Clerk: : 2000 Requested By: OSEI MALIK Order Number: [id number] Reading MD: SURYA MEJÍA Measurements Intervals [place] Rate: 98 P: 36 KS: 153 QRS: 19 QRSD: 98 T: 28 QT: 353 QTc: 451 Interpretive Statements SINUS RHYTHM No previous ECG available for comparison Electronically Signed On 10-27-2024 20:49:34 EST by SURYA MEJÍA Dictated By: Surya Mejía D.O. Signed By: 10/27/242048 DD/ 54 TD/TT: Rack Loader: [facility] Radiology Radiologyelitza cervantes MD - 10/27/2024 [place] [address] Electrocardiograph Report Signed Patient: MADYSON MAI MR#: [id number] : 2000 Acct:[id number] Age/Sex: 23 / F ADM Date: Loc: [place] [address]: Osei Malik D.O. Ordering Physician: Osei Malik D.O. Date of Service: 10/27/24 Procedure(s): ECG 12 lead Accession Number(s): [id number] cc: [facility] Test Date: 2024-10-27 Pat Name: MADYSON MAI Department: Room: [facility] Gender: Female Audit Clerk: : 2000 Requested By: OSEI MALIK Order Number: [id number] Reading MD: SURYA MEJÍA Measurements Intervals [place] Rate: 98 P: 36 KS: 153 QRS: 19 QRSD: 98 T: 28 QT: 353 QTc: 451 Interpretive Statements SINUS RHYTHM No previous ECG available for comparison Electronically Signed On 10-27-2024 20:49:34 EST by SURYA MEJÍA Dictated By: Surya Mejía D.O. Signed By: 10/27/242048 DD/ 54 TD/TT: Rack Loader: [facility] Radiology Study observation (narrative) [facility] ECG 12-LEADOrdered By: emotion.met Radiology on 10-27-2024 [facility] Work Phone: [facility] UA (CLEAN/CATCH) RESERVATIONS SPECIALIST/YOUSIF RO IF IND.on 10-27-2024 BILIRUBIN URINE Negative NEGATIVE [facility] BLOOD URINE Negative NEGATIVE [facility] Clarity (U) CLEAR CLEAR [facility] Color (U) LT. YELLOW YELLOW [facility] GLUCOSE URINE UA 500 mg/dL Abnormal NEGATIVE [facility] Interpretation and review of laboratory results Abnormal [facility] Ketones Ql (U) Negative NEGATIVE mg/dL [facility] Leukocyte esterase Test strip Ql (U) SMALL Abnormal NEGATIVE [facility] NITRITE URINE Negative NEGATIVE [facility] pH (U) 6.5 [pH] 5.0 - 9.0 [facility] PROTEIN URINE Negative NEG/TRACE mg/dL [facility] SPECIFIC GRAVITY URINE 1.020 1.005 - 1.025 [facility] URINE MICROSCOPIC INDICATED YES [facility] UROBILINOGEN URINE 1.0 EU/dL 0.2 - 1.0 EU/dL [facility] No Panel InformationOrdered By: Radiologist Radiology on 10-23-2024 [facility] Work Phone: No Panel Informationon 10-23 Radiology Study observation (narrative) [facility] US OB BPP W NON-STRESS on 10-23-2024 [place] [address] Ultrasound Report Signed Patient: MADYSON MAI MR#: [id number] : 2000 Acct:[id number] Age/Sex: 23 / F ADM Date: 10/22/24 Loc: US Attending Dr: Osei Malik D.O. Ordering Physician: Osei Malik D.O. Date of Service: 10/22/24 Procedure(s): US OB BPP w non-stress Accession Number(s): [id number] cc: JB MANDUJANO ; Osei Malik D.O. [place] [address] Patient Name: MADYSON MAI MRN: [facility]:[id number] date: 2000 Sex: F Assigned Patient Location: [facility] Current Patient Location: Accession/Order Number: [id number] Exam Date: 10/22/2024 17:05 Report Date: 10/23/2024 [...] Small M.D. Signed By: 10/23/2445 DD/ TD/TT: Rack Loader: [facility] Radiology, Radiologi MD billy - 10/23/2024 [place] [address] Ultrasound Report Signed Patient: MADYSON MAI MR#: [id number] : 2000 Acct:[id number] Age/Sex: 23 / F ADM Date: 10/22/24 Loc: US Attending Dr: Osei Malik D.O. Ordering Physician: Osei Malik D.O. Date of Service: 10/22/24 Procedure(s): US OB BPP w non-stress Accession Number(s): [id number] cc: JB MANDUJANO ; Osei Malik D.O. The [place] [id number] Patient Name: MADYSON MAI MRN: [facility]:[id number] date: 2000 Sex: F Assigned Patient Location: [facility] Current Patient Location: Accession/Order Number: [id number] Exam Date: 10/22/2024 17:05 Report Date: 10/23/2024 [...] Small M.D. Signed By: 10/23/2445 DD/ TD/TT: Rack Loader: [place] [address] Ultrasound Report Signed Patient: MADYSON MAI MR#: [id number] : 2000 Acct:[id number] Age/Sex: 23 / F ADM Date: 10/22/24 Loc: US Attending Dr: Osei Malik D.O. Ordering Physician: Osei Malik D.O. Date of Service: 10/22/24 Procedure(s): US OB BPP w non-stress Accession Number(s): [id number] cc: JB MANDUJANO ; Osei Malik D.O. [place] [address] Patient Name: MADYSON MAI MRN: [id number] date: 2000 Sex: F Assigned Patient Location: [facility] Current Patient Location: Accession/Order Number: [id number] Exam Date: 10/22/2024 17:05 Report Date: 10/23/2024 [...] Signed By: 10/23/24 0745 DD/ 0742 TD/TT: Rack Loader: [facility] Radiology, Radiologi MD billy - 10/23/2024 [place] [address] Ultrasound Report Signed Patient: MADYSON MAI MR#: [id number] : 2000 Acct:[id number] Age/Sex: 23 / F ADM Date: 10/22/24 Loc: US Attending Dr: Osei Malik D.O. Ordering Physician: Osei Malik D.O. Date of Service: 10/22/24 Procedure(s): US OB BPP w non-stress Accession Number(s): [id number] cc: JB MANDUJANO ; Osei Malik D.O. The [place] [id number] Patient Name: MADYSON MAI MRN: [facility]:[id number] date: 2000 Sex: F Assigned Patient Location: [facility] Current Patient Location: Accession/Order Number: [id number] Exam Date: 10/22/2024 17:05 Report Date: 10/23/2024 [...] Signed By: 10/23/24 0745 DD/ 0742 TD/TT: Rack Loader: [facility] Urinalysis macro (dipstick) panel (U)on 10-15-2024 Bilirubin, UA Negative Negative - 4(70) +++ mg/dL [facility] Blood, UA Negative Negative - 50 Vasu/mcL [facility] Clarity, UA Clear [facility] Color, UA Yellow [facility] Glucose, UA Positive Negative - 1999(110) ++++ mg/dL [facility] Comment on above: 500 Interpretation and review of laboratory results Abnormal [facility] Ketones, UA Negative Negative - 160(16) ++++ mg/dL [facility] Leukocytes, UA Positive Negative - 500+++ Conrad/mcL [facility] Comment on above: small Nitrite, UA Negative Negative - Positive [facility] pH, UA 6 5 - 9 [facility] Protein, UA Trace Negative - 1999(20) ++++ mg/dL [facility] Spec Grav, UA 1.02 1 - 1.03 [facility] Urobilinogen, UA 0.2 0.2 - 12 mg/dL [facility] Urinalysis macro (dipstick) panel (U)on 10-02-2024 Bilirubin, UA Negative Negative - 4(70) +++ mg/dL [facility] Blood, UA Negative Negative - 50 Vasu/mcL [facility] Clarity, UA Clear [facility] Color, UA Yellow [facility] Glucose, UA Negative Negative - 1999(110) ++++ mg/dL [facility] Interpretation and review of laboratory results Abnormal [facility] Ketones, UA Positive Negative - 160(16) ++++ mg/dL [facility] Comment on above: 40 Leukocytes, UA Trace Negative - 500+++ Conrad/mcL [facility] Nitrite, UA Negative Negative - Positive [facility] pH, UA 6 5 - 9 [facility] Protein, UA Positive Negative - 1999(20) ++++ mg/dL [facility] Comment on above: 30 Spec Grav, UA 1.03 1 - 1.03 [facility] Urobilinogen, UA 0.2 0.2 - 12 mg/dL [facility] UA (CLEAN/CATCH) RESERVATIONS SPECIALIST/YOUSIF RO IF IND.on 09-25-2024 BILIRUBIN URINE Negative NEGATIVE [facility] BLOOD URINE Negative NEGATIVE [facility] Clarity (U) CLEAR CLEAR [facility] Color (U) LT. YELLOW YELLOW [facility] GLUCOSE URINE UA 250 mg/dL Abnormal NEGATIVE [facility] Interpretation and review of laboratory results Abnormal [facility] Ketones Ql (U) Negative NEGATIVE mg/dL [facility] Leukocyte esterase Test strip Ql (U) SMALL Abnormal NEGATIVE [facility] NITRITE URINE Negative NEGATIVE [facility] pH (U) 6.0 [pH] 5.0 - 9.0 [facility] PROTEIN URINE Negative NEG/TRACE mg/dL [facility] SPECIFIC GRAVITY URINE 1.020 1.005 - 1.025 [facility] [facility] URINE MICROSCOPIC INDICATED YES [facility] UROBILINOGEN URINE 0.2 EU/dL 0.2 - 1.0 EU/dL [facility] Urinalysis macro (dipstick) panel (U)on 09-18-2024 Bilirubin, UA Negative Negative - 4(70) +++ mg/dL [facility] Blood, UA Negative Negative - 50 Vasu/mcL [facility] Clarity, UA Clear [facility] Color, UA Yellow [facility] Glucose, UA Positive Negative - 1999(110) ++++ mg/dL [facility] Comment on above: 100 Interpretation and review of laboratory results Abnormal [facility] Ketones, UA Negative Negative - 160(16) ++++ mg/dL [facility] Leukocytes, UA Positive Negative - 500+++ Conrad/mcL [facility] Comment on above: small Nitrite, UA Negative Negative - Positive [facility] pH, UA 7 5 - 9 [facility] Protein, UA Trace Negative - 2000(20) ++++ mg/dL [facility] Spec Grav, UA 1.02 1 - 1.03 [facility] Urobilinogen, UA 0.2 0.2 - 12 mg/dL [facility] Urinalysis macro (dipstick) panel (U)on 09-03-2024 Bilirubin, UA Negative Negative - 4(70) +++ mg/dL [facility] Blood, UA Negative Negative - 50 Vasu/mcL [facility] Clarity, UA Clear [facility] Color, UA Yellow [facility] Glucose, UA Many Negative - 2000(110) ++++ mg/dL [facility] Interpretation and review of laboratory results Abnormal [facility] Ketones, UA Positive Negative - 160(16) ++++ mg/dL [facility] Leukocytes, UA Positive Negative - 500+++ Conrad/mcL [facility] Nitrite, UA Negative Negative - Positive [facility] pH, UA 6.5 5 - 9 [facility] Protein, UA Moderate Negative - 2000(20) ++++ mg/dL [facility] Spec Grav, UA 1.025 1 - 1.03 [facility] Urobilinogen, UA 0.2 0.2 - 12 mg/dL [facility] GLUCOSE TOLERANCE 3 HOURon 1 11-02-2023 GLUCOSE TOLERANCE 3 HOUR High mg/dL [facility] Comment on above: GLU FAST 86 (<95) Co l: 09/01/24 0818 GLU 1HR 162 (<180) Col: 09/01/24 0919 GLU 2HR 156H (<155) Col: 09/01/24 1019 GLU 3HR 110 (<140) Col: 09/01/24 1119 Interpretation and review of laboratory results Abnormal [facility] ALL CBC WITH AUTO DIFFon BASOPHILS ABSOLUTE AUTO 0 [facility] Basophils/100 WBC (Bld) 0.2 % 0.2 - 2.0 % [facility] Eosinophils/100 WBC (Bld) 0.7 % Low 0.9 - 7.0 % [facility] Erythrocyte distribution width (RBC) [Ratio] 13.6 % 11.0 - 15.0 % [facility] Hematocrit (Bld) [Volume fraction] 32.9 % Low 36.0 - 48.0 % [facility] Hemoglobin (Bld) [Mass/Vol] 11.1 g/dL Low 12.0 - 16.0 g/dL [facility] IMMATURE GRANULOCYTES ABS AUTO 0.11 High [facility] Immature granulocytes/100 WBC (Bld) 1.1 % High 0.0 - 0.5 % [facility] Interpretation and review of laboratory results Abnormal [facility] LYMPHOCYTES ABSOLUTE AUTO 1.3 [facility] Lymphocytes/100 WBC (Bld) 13 % Low 20.5 - 60.0 % [facility] MCH (RBC) [Entitic mass] 29.6 pg 26.7 - 34.0 pg [facility] MCHC (RBC) [Mass/Vol] 33.7 g/dL 29.9 - 35.2 g/dL [facility] MCV (RBC) [Entitic vol] 87.7 fL 81.0 - 99.0 fL [facility] MONOCYTES ABSOLUTE AUTO 0.6 [facility] Monocytes/100 WBC (Bld) 5.5 % 1.7 - 12.0 % [facility] NEUTROPHILS ABSOLUTE AUTO 7.9 High [facility] Neutrophils/100 WBC (Bld) 79.5 % High 43.0 - 75.0 % [facility] Platelet mean volume (Bld) [Entitic vol] 10.3 fL 9.5 - 13.5 fL [facility] TBH EO # 0.1 [facility] PLT 178 [facility] RBC 3.75 Low [facility] WBC 9.9 [facility] IGP,APTIMA HPV,AGE GDLNon AGE GDLN ACOG TESTING Note . [facility] Comment on above: TESTS RESULT FLAG U NITS REF RANGE LAB Clinician Provided Cytology Information Source.............Cervix No. of containers..01 ThinPrep Vial Age Algo ACOG Maureen... FLAG LEGEND: L-Low Normal,H-High Normal,LL-Alert Low,HH-Alert High <-Panic Low,>-Panic High,A-Abnormal,AA-Critical Abnormal Performed at: 01 =G [facility] [address] Toya Wilson MD, IGP, RFX APTIMA HPV ASCU Note . [facility] Comment on above: TESTS RESULT FLAG UN ITS REF RANGE LAB DIAGNOSIS: 02 NEGATIVE FOR INTRAEPITHELIAL LESION OR MALIGNANCY. Specimen adequacy: 02 Satisfactory for evaluation. No endocervical component is identified. Performed by: 02 Imelda Miranda Supervisor [place] ([facility]) . 02 Note: Note 02 The [...] <-Panic Low,>-Panic High,A-Abnormal,AA-Critical Abnormal Performed at: [address] [id number] Toya Wilson MD, Performed at: =[address] [id number] Thread Drawer: Toya Wilson MD, Phone: [phone] Performed at: [address] [id number] Thread Drawer: Toya Wilson MD, Phone: [phone] SPATULA-ALONE CERVIX [facility] AFP, SERUM, OPEN SPINA BIFID Aon 08-13-2024 AFP MOM 2.24 . [facility] AFP VALUE 103.1 ng/mL . [facility] COMMENT: Comment . [facility] Comment on above: Joyce Reina , Ph.D., [facility] Director References: Available Upon Request. Multiples Of Median Cutoffs For AFP Elevations Harrington 2.5 Black 2.8 IDD 2.0 Twins 4.5 Abbreviation Definitions IDD - Insulin Dep Diabetes OSBR - Open Spina Bifida Risk For further inquiries contact [facility] at [phone]. This test was developed and its performance characteristics determined by [facility]. It has not been cleared or approved by the Food and Drug Administration. Performed at: [facility] [address], [place] [id number] Thread Drawer: Angel Regan [facility], Phone: [phone] GEST. AGE ON COLLECTION DATE 20.3 . weeks [facility] GESTAT. AGE BASED ON LMP . [facility] Comment on above: Recalculations are n ot recommended when gestational dating by LMP and ultrasound are within 10 days. INSULIN DEP DIABETES No . [facility] INTERPRETATION Comment . [facility] Comment on above: Interpretation: Scre [...] Customer Services to discuss available options. The [employer] recommends amniocentesis be offered to women age 35 and older. [age] [facility] MULTIPLE GESTATION Twins . [facility] OSBR RISK 1 IN 1081 . [facility] RACE . [facility] RESULTS Report . [facility] TEST RESULTS: Negative . [facility] WEIGHT 219 . 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 [...] 0 lb 13 oz EFW by Hadlock ([id number]-FL) EFW discordance 10.9 % Head / Face / Neck Biometry: Cephalic index 0.81 73% Nicolaides Instructor Flying 6.4 mm CM 4.4 mm 26% Nicolaides [...] 0 lb 14 oz EFW by Hadlock ([id number]-[id number]-FL) EFW discordance 10.9 % Head / Face / Neck Biometry: Cephalic index 0.71 1% Nicolaides Instructor Flying 6.8 mm CM 4.3 mm 23% Nicolaides Nasal bone 7.9 mm Extremities / Bony Struc Biometry: FL / BPD 0.75 83% Hadlock FL / HC 0.20 85% Hadlock FL / AC 0.21 17% Hadlock Tibia 28.1 mm 20w 1d 40% Chalres Fetus A: Anatomy The following structures appear normal: Head / Neck Cranium. Lateral ventricles. Choroid plexus. Midline falx. Cavum septi pellucidi. Cerebellum. Cisterna magna. Parenchyma. Neck. Face Nasal bone. Maxilla. Orbits. Heart / Th (more content not included)... 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 3-vessel view. 2-ztesrm-wtitkfg view. Interventricular septum. Diaphragm. Abdomen Right renal [...] Nuchal fold. F (more content not included)... [facility] Radiology Study observation (narrative) [facility] US for pregnancyOrdered By: Radiologist Radiology on 08-13-2024 [facility] Work Phone: RECURRENT VAGINITIS (HTRX)on 08-07-2024 ATOPOBIUM VAGINAE 29.356 Abnormal [facility] ATOPOBIUM VAGINAE Detected Abnormal [facility] BVAB 2,3 (BACTERIAL VAGINOSIS ASSOCIATED BACTERIA 2, 3); MOBILUNCUS SPP 0 [facility] BVAB 2,3 (BACTERIAL VAGINOSIS ASSOCIATED BACTERIA 2, 3); MOBILUNCUS SPP Not detected [facility] SANTHOSH ALBICANS, PARAPSILOSIS, TROPICALIS 0 [facility] SANTHOSH ALBICANS, PARAPSILOSIS, TROPICALIS Not detected [facility] SANTHOSH GLABRATA 0 [facility] SANTHOSH GLABRATA Not detected [facility] SANTHOSH KRUSEI 0 [facility] SANTHOSH KRUSEI Not detected [facility] CHLAMYDIA TRACHOMATIS 0 [facility] CHLAMYDIA TRACHOMATIS Not detected N [facility] GARDNERELLA VAGINALIS 0 [facility] GARDNERELLA VAGINALIS Not detected N [facility] Healthcare Interpretation and review of laboratory results Abnormal [facility] MEGASPHAERA (TYPES 1, 2) 0 [facility] MEGASPHAERA (TYPES 1, 2) Not detected [facility] MYCOPLASMA GENITALIUM 0 [facility] MYCOPLASMA GENITALIUM Not detected N [facility] NEISSERIA GONORRHOEAE 0 [facility] NEISSERIA GONORRHOEAE Not detected N [facility] TRICHOMONAS VAGINALIS 0 [facility] TRICHOMONAS VAGINALIS Not detected N [facility] Urinalysis macro (dipstick) panel (U)on 08-05-2024 Bilirubin, UA Negative Negative - 4(70) +++ mg/dL [facility] Blood, UA Negative Negative - 50 Vasu/mcL [facility] Clarity, UA Clear [facility] Color, UA Yellow [facility] Glucose, UA Negative Negative - 1999(110) ++++ mg/dL [facility] Interpretation and review of laboratory results Normal [facility] Ketones, UA Negative Negative - 160(16) ++++ mg/dL [facility] Leukocytes, UA Negative Negative - 500+++ Conrad/mcL [facility] Nitrite, UA Negative Negative - Positive [facility] pH, UA 5.5 5 - 9 [facility] Protein, UA Negative Negative - 1999(20) ++++ mg/dL [facility] Spec Grav, UA 1.02 1 - 1.03 [facility] Urobilinogen, UA 1.0 0.2 - 12 mg/dL [facility] Urinalysis macro (dipstick) panel (U)on 07-03-2024 Bilirubin, UA Negative Negative - 4(70) +++ mg/dL [facility] Blood, UA Negative Negative - 50 Vasu/mcL [facility] Clarity, UA Clear [facility] Color, UA Yellow [facility] Glucose, UA Positive Negative - 1999(110) ++++ mg/dL [facility] Comment on above: 500 Interpretation and review of laboratory results Abnormal [facility] Ketones, UA Negative Negative - 160(16) ++++ mg/dL [facility] Leukocytes, UA Negative Negative - 500+++ Conrad/mcL [facility] Nitrite, UA Negative Negative - Positive [facility] pH, UA 6.0 5 - 9 [facility] Protein, UA Negative Negative - 1999(20) ++++ mg/dL [facility] Spec Grav, UA 1.015 1 - 1.03 [facility] Urobilinogen, UA 0.2 0.2 - 12 mg/dL [facility] Urinalysis macro (dipstick) panel (U)Ordered By: Ibis Sandoval on 06-04-2024 Bilirubin, UA Negative Negative - 4(70) +++ mg/dL [facility] Blood, UA Positive Negative - 50 Vasu/mcL [facility] Comment on above: trace-intact Clarity, UA Clear [facility] Color, UA Yellow [facility] Glucose, UA Negative Negative - 1999(110) ++++ mg/dL [facility] Interpretation and review of laboratory results Abnormal [facility] Ketones, UA Negative Negative - 160(16) ++++ mg/dL [facility] Leukocytes, UA Trace Negative - 500+++ Conrad/mcL [facility] Nitrite, UA Negative Negative - Positive [facility] pH, UA 5.5 5 - 9 [facility] Protein, UA Negative Negative - 1999(20) ++++ mg/dL [facility] Spec Grav, UA 1.005 1 - 1.03 [facility] Urobilinogen, UA 0.2 0.2 - 12 mg/dL [facility] ALL CBC WITH AUTO DIFFon BASOPHILS ABSOLUTE AUTO 0.0 [facility] Basophils/100 WBC (Bld) 0.5 % 0.2 - 2.0 % [facility] Eosinophils/100 WBC (Bld) 0.5 % Low 0.9 - 7.0 % [facility] Erythrocyte distribution width (RBC) [Ratio] 11.9 % 11.0 - 15.0 % [facility] IMMATURE GRANULOCYTES ABS AUTO 0.03 [facility] Immature granulocytes/100 WBC (Bld) 0.4 % 0.0 - 0.5 % [facility] Interpretation and review of laboratory results Abnormal [facility] LYMPHOCYTES ABSOLUTE AUTO 1.8 [facility] Lymphocytes/100 WBC (Bld) 23.3 % 20.5 - 60.0 % [facility] MCH (RBC) [Entitic mass] 29.7 pg 26.7 - 34.0 pg [facility] MCHC (RBC) [Mass/Vol] 34.9 g/dL 29.9 - 35.2 g/dL [facility] MCV (RBC) [Entitic vol] 85.1 fL 81.0 - 99.0 fL [facility] MONOCYTES ABSOLUTE AUTO 0.5 [facility] Monocytes/100 WBC (Bld) 6.3 % 1.7 - 12.0 % [facility] NEUTROPHILS ABSOLUTE AUTO 5.4 [facility] Neutrophils/100 WBC (Bld) 69.0 % 43.0 - 75.0 % [facility] Platelet mean volume (Bld) [Entitic vol] 10.3 fL 9.5 - 13.5 fL [facility] EO # 0.0 [facility] PLT 206 [facility] RBC 4.55 [facility] WBC 7.8 [facility] Laboratory - Hematology and Cell countson 05-24-2024 Hematocrit (Bld) [Volume fraction] 38.7 % [facility] Hemoglobin (Bld) [Mass/Vol] 13.5 g/dL [facility] No Panel Informationon 05-24 [facility] HCG ( test) Ql (U)o n 05-23-2024 Interpretation and review of laboratory results Abnormal [facility] Preg Test, Ur Positive [facility] Urinalysis macro (dipstick) panel (U)on 05-23-2024 Bilirubin, UA Negative Negative - 4(70) +++ mg/dL [facility] Blood, UA Negative Negative - 50 Vasu/mcL [facility] Clarity, UA Clear [facility] Color, UA Yellow [facility] Glucose, UA Negative Negative - 1999(110) ++++ mg/dL [facility] Interpretation and review of laboratory results Normal [facility] Ketones, UA Negative Negative - 160(16) ++++ mg/dL [facility] Leukocytes, UA Negative Negative - 500+++ Conrad/mcL [facility] Nitrite, UA Negative Negative - Positive [facility] pH, UA 7.0 5 - 9 [facility] Protein, UA Negative Negative - 1999(20) ++++ mg/dL [facility] Spec Grav, UA 1.025 1 - 1.03 [facility] Urobilinogen, UA 1.0 0.2 - 12 mg/dL [facility] CHEMISTRYOrdered By: SYSTEM SYSTEM on 04-12-2024 Progesterone [...] Progesterone Lvl 31.70 ng/mL Invalid Interpretation Code [facility] Comment on above: Result Comment: 'F N ON FOLLICULAR = 0.10 - 0.60' 'LUTEAL = 3.00 - 17.5' 'MIDLUTEAL = 3.30 - 18.6' 'POST-MENOPAUSE = 0.10 - 0.40' '-FIRST TRIMESTER = 8.30 - 66.5' 'SECOND TRIMESTER = 18.9 - 66.1' 'THIRD TRIMESTER = 35.8 - 312.4' 'MALES = 0.14 - 2.06' Performed By: #### 2 [id number] #### [facility] [address] [place] [address] CHEMISTRYOrdered By: SYSTEM SYSTEM on 03-14-2024 Progesterone [...] Consent for Treatmenton 02-23 Consent for Treatment [id number] Normal [facility] Physician Orderon 03-14-2024 Physician Order [id number]#[id number] Normal [facility] Progesteroneon 03-14-2024 Progesterone Lvl 16.15 ng/mL Invalid Interpretation Code [facility] Comment on above: Result Comment: 'F N ON FOLLICULAR = 0.10 - 0.60' 'LUTEAL = 3.00 - 17.5' 'MIDLUTEAL = 3.30 - 18.6' 'POST-MENOPAUSE = 0.10 - 0.40' '-FIRST TRIMESTER = 8.30 - 66.5' 'SECOND TRIMESTER = 18.9 - 66.1' 'THIRD TRIMESTER = 35.8 - 312.4' 'MALES = 0.14 - 2.06' Performed By: #### 2 [id number] #### [facility] [address] [place] [address] Ambulatory Visit Summaryon 0 12-11-2023 Ambulatory Visit [...] 11:20 AM EDT With: Krista Daley Where: [facility] Family Medicine Neena Normal [facility] Family Medicine Office/Clini c Noteon 12-11-2023 Family Medicine Office/Clinic Note HPI Staff Madyson is a 23 year old female presenting to critical access hospital care Establish Care: History: Any previous diagnosis: POTS (11/30/23) History of seeing any specialist: Jyoti Dickey 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 BMI 33.0-33.9,adult (Z68.33: Body mass index [BMI] 33.0-33.9, adult) BMI education complete Ordered: omeprazole, 40 mg = 1 cap(s), Oral, Daily, # 30 cap(s), Refills(s) 1, Pharmacy: [facility], 168.3, cm, 12/11/23 13:07:00 EDT, Height/Length Dosing, 93.6, kg, 12/11/23 13:07:00 EDT, Weight Dosing 3. Class 1 obesity due to excess calories in adult (E66.09: Other obesity due to excess calories) see above Ordered: omeprazole, 40 mg = 1 cap(s), Oral, Daily, # 30 cap(s), Refills(s) 1, Pharmacy: [facility], 168.3, cm, 12/11/23 13:07:00 EDT, Height/Length Dosing, 93.6, kg, 12/11/23 13:07:00 EDT, Weight Dosing 4. Nonsmoker (Z78.9: Other specified health status) continue not smoking Ordered: omeprazole, 40 mg = 1 cap(s), Oral, Daily, # 30 cap(s), Refills(s) 1, Pharmacy: [facility], 168.3, cm, 12/11/23 13:07:00 EDT, Height/Length [...] 03/05/2002 Recorded (more content not included)... Normal [facility] Comment on above: Result Comment: Elec tronically Signed By: Krista Daley\.br\Date and Time Signed: 12/11/23 13:32 EDT CNOVon 11-30-2023 CNOV Office Visit (NENMMN ) ----- MADYSON MAI ([id number]) 2 F Date Time Provider Department 11/30/23 10:00 AM JYOTI DICKEY During your visit today, we recorded the following information about you: Pulse Blood pressure Weight Height 84/minute 118/79 93 kg 1.651 m Jyoti Dickey PA-C 11/30/2023 11:14 AM Signed [facility] Neuromuscular Medicine New Patient Evaluation Madyson Mai [...] experienced LOC while walking up the stairs. Porter prodromal symptoms including lightheadedness and tunnel vision. [...] Urination: + (more content not included)... Normal [facility] ECHOon 11-12-2023 Echocardiography Echocardiography Rep ort: Transthoracic Echo [facility] A17 Date of service: 11/12/2023 1:08:10 PM BANDER Ordering physician: AURORA SANTIAGO Indication: Initial evaluation [...] * * * Final * * * [employer] : [id number] Normal [facility] CNOVon 10-10-2023 CNOV Office Visit (NEADMN ) ----- MADYSON MAI ([id number]) 2 F Date Time Provider Department 10/10/23 2:00 PM AURORA SANTIAGO During your visit today, we recorded the following information about you: Pulse Blood pressure Weight Height 108/minute 119/85 93 kg 1.651 m Aurora Santiago PA-C 10/10/2023 4:33 PM Signed [facility] New Patient Evaluation [...] on BC (more content not included)... Normal [facility] Quantiferon-TB Plus (Client Incubated)on 07-26-2023 Gamma interferon background IA Qn (Bld) 0.01 International_Unit/mL Invalid Interpretation Code [facility] Comment on above: Performed By: #### 1 [id number], [id number] #### [facility] [address] [place] [address] M. tuberculosis stim IFN-g by CD4+ CD8+ T-cells Qn (Bld) 0.30 International_Unit/mL Invalid Interpretation Code [facility] Comment on above: Performed By: #### 1 [id number], [id number] #### [facility] [address] [place] [address] M. tuberculosis stim IFN-g by CD4+ T-cells Qn (Bld) 0.23 International_Unit/mL Invalid Interpretation Code [facility] Comment on above: Performed By: #### 1 [id number] #### [facility] [address] [place] [address] M. tuberculosis stim IFN-g Ql (Bld) [Interp] Negative Invalid Interpretation Code Negative [facility] Comment on above: Result Comment: No [...] interferon gamma. Chemiluminescence immunoassay methodology Performed at: [address] [id number] PhD Rubio Vinson Performed By: #### 1 [id number], [id number] #### [facility] [address] [place] [address] Mitogen stimulated gamma interferon Qn (Bld) >10.00 Invalid Interpretation Code [facility] Comment on above: Performed By: #### 1 [id number], [id number], [id number], [id number] #### [facility] [address] [place] [address] Service comment (Unsp spec) [Interp] Comment Invalid Interpretation Code [facility] Comment on above: Result Comment: Link [...] for the test. Performed By: #### 1 [id number], [id number], [id number], [id number] #### [facility] [address] [place] [address] Hep Bs Abon 07-25-2023 HBV surface Ab Ql (S) Non-Reactive Invalid Interpretation Code [facility] Comment on above: Result Comment: Non Reactive: Inconsistent with immunity, less than 10 mIU/mL Reactive: Consistent with immunity, greater than 9.9 mIU/mL Performed at: [address] [id number] PhD Rubio Vinson Performed By: #### 1 [id number] #### [facility] [address] [place] [address] Measles/Mumps/Rubella Immuni tyon 07-25-2023 MeV IgG IA Qn (S) 34.3 A unit/mL Invalid Interpretation Code Immune >16.4 [facility] Comment on above: Result Comment: Nega tive <13.5 Equivocal 13.5 - 16.4 Positive >16.4 Presence of antibodies to Rubeola is presumptive evidence of immunity except when acute infection is suspected. Performed By: #### 1 [id number] #### [facility] [address] [place] [address] MuV IgG IA Qn (S) <9.0 Low Immune >10.9 [facility] Comment on above: Result Comment: Nega tive <9.0 Equivocal 9.0 - 10.9 Positive >10.9 A positive result generally indicates past exposure to Mumps virus or previous vaccination. Performed at: [address] [id number] PhD Rubio Vinson Performed By: #### 1 [id number] #### [facility] [address] [place] [address] Rubella virus IgG Qn (S) 1.53 [IU]/mL Invalid Interpretation Code Immune >0.99 [facility] Comment on above: Result Comment: Non- immune <0.90 Equivocal 0.90 - 0.99 Immune >0.99 Performed By: #### 1 [id number] #### [facility] [address] [place] [address] Varic IgGon 07-25-2023 VZV IgG IA Qn (S) 475 Invalid Interpretation Code Immune >165 [facility] Comment on above: Result Comment: Nega tive <135 Equivocal 135 - 165 Positive >165 A positive result generally indicates exposure to the pathogen or administration of specific immunoglobulins, but it is not indication of active infection or stage of disease. Performed at: [address] [id number] PhD Rubio Visnon Performed By: #### 1 [id number] #### [facility] [address] [place] [address] CNOVon 07-10-2023 CNOV Office Visit (ORFWHP ) ----- MADYSON SCHMID ([id number]) 2 F Date Time Provider Department 07/10/23 9:40 AM [facility] During your visit today, we recorded the following information about you: Jose Armando Grey DO 07/10/2023 10:08 AM Signed [facility] Office Visit Documentation Note [facility] Sports Medicine Orthopaedic and Rheumatologic [place] HISTORY OF PRESENT ILLNESS (HPI) CHIEF COMPLAINT / REASON FOR VISIT SERVICE DATE: July 10, 2023 PCP: No primary care provider on file. Madyson Schmid is here today at request of Dr. Jose Armando Schmid specifically for consultation of my opinion in regards to the chief complaint listed below. 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 Reaction knee brace Consider [place] toradol, did discuss orthobiologics Follow up: Films prior to visit: Written instructions (see patient instructions) and verbal health education given to patient. Patient verbalizes understanding and agrees with the treatment plan. Jose Armando Grey D.O. [facility] Orthopaedic and Rheumatologic Retail Sales Lead, [facility] [employer] Program Team Physician, [facility] [employer] Consulting Physician, Theodore Martin Nagel, Netting [employer] [phone] Referring Provider: SELF [200] Allergies As of [...] of (more content not included)... [facility] Tobacco Screening.on 023 Adult depression screening assessment No -[facility] DO Work Phone: Tobacco use status CPHS b) No -[facility] 600 DO Work Phone: Activated partial thrombopla stin time (aPTT) in platelet poor plasma by coagulation aOrdered By: Haris Martino on 06-08-2023 aPTT Coag (PPP) [Time] 28.9 s 25.1-36.5 [facility] Comment on above: A hematocrit value g reater than 55% may lead to inaccurate results in coagulation testing. Patients having hematocrit values >55% require a special collection tube for coagulation studies. Please contact the laboratory at [phone] for redraw instructions. Alanine aminotransferase [En zymatic activity/volume] in Serum or PlasmaOrdered By: Haris Martino on 06-08-2023 ALT [Catalytic activity/Vol] 42 U/L 7-52 [facility] Albumin [Mass/volume] in Ser um or Plasma by Bromocresol green (BCG) dye binding methoOrdered By: Haris Martino on 06-08-2023 Albumin BCG dye [Mass/Vol] 4.6 g/dL 3.5-5.7 [facility] Alkaline phosphatase [Enzyma tic activity/volume] in Serum or PlasmaOrdered By: Haris Martino on 06-08-2023 ALP [Catalytic activity/Vol] 78 U/L 34-104 [facility] Aspartate aminotransferase [ Enzymatic activity/volume] in Serum or PlasmaOrdered By: Haris Martino on 06-08-2023 AST [Catalytic activity/Vol] 22 U/L 13-39 [facility] Automated erythrocytes count in urine sediment (number/area)Ordered By: Haris Martino on 06-08-2023 RBC Auto (Urine sed) [#/Area] 5-9 [HPF] 0-4 [facility] Automated leukocytes count i n urine sediment (number/area)Ordered By: Haris Martino on 06-08-2023 WBC Auto (Urine sed) [#/Area] 3-4 [HPF] 0-4 [facility] Basophils Auto (Bld) [#/Vol] Ordered By: Haris Martino on 06-08-2023 Basophils (Bld) [#/Vol] 0.1 10*3/uL 0.0-0.2 [facility] Basophils/100 WBC Auto (Bld) Ordered By: Haris Martino on 06-08-2023 Basophils/100 WBC (Bld) 1.0 % . [facility] Bilirubin Test strip Ql (U)O rdered By: Haris Martino on 06-08-2023 Bilirubin Ql (U) Negative Negative [facility] Bilirubin.direct [Mass/volum e] in Serum or PlasmaOrdered By: Haris Martino on 06-08-2023 Bilirubin.direct [Mass/Vol] 0.10 mg/dL 0.03-0.18 [facility] Bilirubin.total [Mass/volume ] in Serum or PlasmaOrdered By: Haris Martino on 06-08-2023 Bilirubin [Mass/Vol] 0.4 mg/dL 0.3-1.0 [facility] Calcium [Mass/volume] in Ser um or PlasmaOrdered By: Haris Martino on 06-08-2023 Calcium [Mass/Vol] 9.4 mg/dL 8.6-10.3 [facility] Carbon dioxide, total [Moles /volume] in Serum or PlasmaOrdered By: Haris Martino on 06-08-2023 CO2 [Moles/Vol] 29.3 mmol/L 21.0-31.0 [facility] Chloride [Moles/volume] in S colin or PlasmaOrdered By: Haris Martino on 06-08-2023 Chloride [Moles/Vol] 104 mmol/L 98-107 [facility] Color Auto (U)Ordered By: Terrell red Salena on 06-08-2023 Color (U) Yellow Yellow [facility] Creatine kinase [Enzymatic a ctivity/volume] in Serum or PlasmaOrdered By: Haris Martino on 06-08-2023 CK [Catalytic activity/Vol] 55 U/L 30-223 [facility] Creatinine [Mass/volume] in Serum or PlasmaOrdered By: Haris Martino on 06-08-2023 Creatinine [Mass/Vol] 0.64 mg/dL 0.60-1.20 [facility] Eosinophils Auto (Bld) [#/Vo l]Ordered By: Haris Martino on 06-08-2023 Eosinophils (Bld) [#/Vol] 0.1 10*3/uL 0.0-0.45 [facility] Eosinophils/100 WBC Auto (Bl d)Ordered By: Haris Martino on 06-08-2023 Eosinophils/100 WBC (Bld) 0.8 % . [facility] Erythrocyte distribution wid th Auto (RBC) [Ratio]Ordered By: Haris Martino on 06-08-2023 Erythrocyte distribution width (RBC) [Ratio] 12.9 % 11.9-15.3 [facility] Fibrin D-dimer [Presence] in Platelet poor plasma by Latex agglutinationOrdered By: Haris Martino on 06-08-2023 Fibrin D-dimer LA Ql (PPP) < 200 ng/mL 0-243 [facility] Comment on above: The reference [...] coagulation studies. Please contact the laboratory at [phone] for redraw instructions. Globulin Calc (S) [Mass/Vol] Ordered By: Haris Martino on 06-08-2023 Globulin (S) [Mass/Vol] 2.9 g/dL [facility] Glucose [Mass/volume] in Ser um or PlasmaOrdered By: Haris Martino on 06-08-2023 Glucose [Mass/Vol] 79 mg/dL 70-100 [facility] Comment on above: ADA recommended refe rence rangeRandom Glucose Reference Range is dependent on time and content of last meal. Glucose of more than 200 mg/dL in a nonstressed, ambulatory subject supports the diagnosis of Diabetes Mellitus. HCG ( test) IA.rapi d Ql (U)Ordered By: Haris Martino on 06-08-2023 HCG ( test) Ql (U) Negative [facility] Hematocrit Auto (Bld) [Volum e fraction]Ordered By: Haris Martino on 06-08-2023 Hematocrit (Bld) [Volume fraction] 42.4 % 34.0-46.4 [facility] Hemoglobin [Mass/volume] in BloodOrdered By: Haris Martino on 06-08-2023 Hemoglobin (Bld) [Mass/Vol] 14.5 g/dL 11.8-15.4 [facility] INR in Platelet poor plasma by Coagulation assayOrdered By: Haris Martino on 06-08-2023 INR Coag (PPP) [Relative time] 1.0 {INR} [facility] Comment on above: INR Therapeutic [...] on 06-08-2023 Ketones (U) [Mass/Vol] Negative Negative [facility] - UrinalysisOrder ed By: Haris Martino on 06-08-2023 Hyaline casts LM Ql (Urine sed) 0-8 [LPF] 0-8 [facility] Leukocytes [#/volume] correc matt for nucleated erythrocytes in Blood by Automated counOrdered By: Haris Martino on 06-08-2023 WBC corrected for nucl RBC Auto (Bld) [#/Vol] 8.3 10*3/uL 3.8-11.6 [facility] Lymphocytes Auto (Bld) [#/Vo l]Ordered By: Haris Martino on 06-08-2023 Lymphocytes (Bld) [#/Vol] 3.0 10*3/uL 1.00-4.8 [facility] Lymphocytes/100 WBC Auto (Bl d)Ordered By: Haris Martino on 06-08-2023 Lymphocytes/100 WBC (Bld) 36.0 % . [facility] MCH Auto (RBC) [Entitic mass ]Ordered By: Haris Martino on 06-08-2023 MCH (RBC) [Entitic mass] 29.4 pg 24.7-34.3 [facility] MCHC Auto (RBC) [Mass/Vol]Or dered By: Haris Martino on 06-08-2023 MCHC (RBC) [Mass/Vol] 34.2 g/dL 32.0-35.0 [facility] MCV Auto (RBC) [Entitic vol] Ordered By: Haris Martino on 06-08-2023 MCV (RBC) [Entitic vol] 85.9 fL 80-100 [facility] Monocyte distribution width [Entitic volume] in Blood by AutomatedOrdered By: Haris Martino on 06-08-2023 Monocyte distribution width Auto (Bld) [Entitic vol] 18.39 % 0.00-20.00 [facility] Monocytes Auto (Bld) [#/Vol] Ordered By: Haris Martino on 06-08-2023 Monocytes (Bld) [#/Vol] 0.5 10*3/uL 0.0-0.8 [facility] Monocytes/100 WBC Auto (Bld) Ordered By: Haris Martino on 06-08-2023 Monocytes/100 WBC (Bld) 6.6 % . [facility] Natriuretic peptide B [Mass/ Vol]Ordered By: Haris Martino on 06-08-2023 Natriuretic peptide B (Bld) [Mass/Vol] 9.0 pg/mL 5-100 [facility] Neutrophils Auto (Bld) [#/Vo l]Ordered By: Haris Martino on 06-08-2023 Neutrophils (Bld) [#/Vol] 4.6 10*3/uL 1.8-7.7 [facility] Neutrophils/100 WBC Auto (Bl d)Ordered By: Haris Martino on 06-08-2023 Neutrophils/100 WBC (Bld) 55.6 % . [facility] Nitrite Test strip Ql (U)Ord ered By: Haris Martino on 06-08-2023 Nitrite Ql (U) Negative Negative [facility] No Panel InformationOrdered By: Haris Martino on 06-08-2023 Estimated GFR (CKD-EPI) > 60.0 mL/Min [facility] Creatinine Clearance (Chem 155.50 [facility] Nucleated erythrocytes [Pres ence] in Blood by Automated countOrdered By: Haris Martino on 06-08-2023 Nucleated RBC Auto Ql (Bld) 0.1 /100{WBC} 0-0.5 [facility] Platelet mean volume Auto (B ld) [Entitic vol]Ordered By: Haris Martino on 06-08-2023 Platelet mean volume (Bld) [Entitic vol] 8.2 fL 6.3-10.7 [facility] Platelets Auto (Bld) [#/Vol] Ordered By: Haris Martino on 06-08-2023 Platelets (Bld) [#/Vol] 225 10*3/uL 150-450 [facility] Potassium [Moles/volume] in Serum or PlasmaOrdered By: Haris Martino on 06-08-2023 Potassium [Moles/Vol] 4.0 mmol/L 3.5-5.1 [facility] Protein Auto test strip (U) [Mass/Vol]Ordered By: Haris Martino on 06-08-2023 Protein (U) [Mass/Vol] Negative Negative [facility] Protein [Mass/volume] in Ser um or PlasmaOrdered By: Haris Martino on 06-08-2023 Protein [Mass/Vol] 7.5 g/dL 6.4-8.9 [facility] Prothrombin time (PT)Ordered By: Haris Martino on 06-08-2023 PT Coag (PPP) [Time] 12.2 s 9.0-12.9 [facility] Comment on above: A hematocrit value g reater than 55% may lead to inaccurate results in coagulation testing. Patients having hematocrit values >55% require a special collection tube for coagulation studies. Please contact the laboratory at [phone] for redraw instructions. RBC Auto (Bld) [#/Vol]Ordere d By: Haris Martino on 06-08-2023 RBC (Bld) [#/Vol] 4.94 10*6/uL 3.60-5.00 [facility] Serum or plasma albumin/glob ulin mass ratioOrdered By: Haris Martino on 06-08-2023 Albumin/Globulin [Mass ratio] 1.6 {ratio} [facility] Serum or plasma anion gap de terminationOrdered By: Haris Martino on 06-08-2023 Anion gap [Moles/Vol] 9.7 mmol/L 6.0-15.0 [facility] Serum or plasma non-glucuron idated bilirubin measurement (mass/volume)Ordered By: Haris Martino on 06-08-2023 Bilirubin.indirect [Mass/Vol] 0.3 mg/dL [facility] Sodium [Moles/volume] in Ser um or PlasmaOrdered By: Haris Martino on 06-08-2023 Sodium [Moles/Vol] 139 mmol/L 136-145 [facility] Specific gravity Auto test s trip (U) [Rel density]Ordered By: Haris Martino on 06-08-2023 Specific gravity (U) [Rel density] 1.015 1.001-1.03 0 [facility] Squamous epithelial cells de tection in urine sediment by light microscopyOrdered By: Haris Martino on 06-08-2023 Epithelial cells.squamous LM Ql (Urine sed) 3-4 [HPF] 0-2 [facility] Troponin I.cardiac [Mass/vol ume] in Serum or Plasma by Detection limit <= 0.01 ng/Ordered By: Haris Martino on 06-08-2023 Troponin I.cardiac DL <= 0.01 ng/mL [Mass/Vol] < 2.3 pg/mL 0.0-15.0 [facility] Urea nitrogen [Mass/volume] in Serum or PlasmaOrdered By: Haris Martino on 06-08-2023 Urea nitrogen [Mass/Vol] 10 mg/dL 7-25 [facility] Urine bacteria detection by automated methodOrdered By: Haris Martino on 06-08-2023 Bacteria Auto Ql (U) 1+ None Seen [facility] Urine clarity by refractomet ry automatedOrdered By: Haris Martino on 06-08-2023 Clarity Refractometry automated (U) Clear Clear [facility] Urine glucose measurement by automated test strip (mass/volume)Ordered By: Haris Martino on 06-08-2023 Glucose Auto test strip (U) [Mass/Vol] Normal mg/dL Normal [facility] Urine hemoglobin detection b y automated test stripOrdered By: Haris Martino on 06-08-2023 Hemoglobin Auto test strip Ql (U) Negative Negative [facility] Urine leukocyte esterase det ection by automated test stripOrdered By: Haris Martino on 06-08-2023 Leukocyte esterase Auto test strip Ql (U) 1+ Negative [facility] Urobilinogen Auto test strip (U) [Mass/Vol]Ordered By: Haris Martino on 06-08-2023 Urobilinogen (U) [Mass/Vol] Normal mg/dL Normal [facility] WBC Auto (Bld) [#/Vol]Ordere d By: Haris Martino on 06-08-2023 WBC (Bld) [#/Vol] 8.3 10*3/uL 3.8-11.6 [facility] pH Auto test strip (U)Ordere d By: Haris Martino on 06-08-2023 pH (U) 6.5 [pH] 5.0-9.0 [facility] Alanine aminotransferase [En zymatic activity/volume] in Serum or PlasmaOrdered By: Carlitos Nguyen on 04-25-2023 ALT [Catalytic activity/Vol] 18 U/L 7-52 [facility] Albumin [Mass/volume] in Ser um or Plasma by Bromocresol green (BCG) dye binding methoOrdered By: Carlitos Nguyen on 04-25-2023 Albumin BCG dye [Mass/Vol] 4.8 g/dL 3.5-5.7 [facility] Alkaline phosphatase [Enzyma tic activity/volume] in Serum or PlasmaOrdered By: Carlitos Nguyen on 04-25-2023 ALP [Catalytic activity/Vol] 73 U/L 34-104 [facility] Aspartate aminotransferase [ Enzymatic activity/volume] in Serum or PlasmaOrdered By: Carlitos Nguyen on 04-25-2023 AST [Catalytic activity/Vol] 18 U/L 13-39 [facility] Bilirubin.total [Mass/volume ] in Serum or PlasmaOrdered By: Carlitos Nguyen on 04-25-2023 Bilirubin [Mass/Vol] 0.5 mg/dL 0.3-1.0 [facility] Calcium [Mass/volume] in Ser um or PlasmaOrdered By: Carlitos Nguyen on 04-25-2023 Calcium [Mass/Vol] 9.9 mg/dL 8.6-10.3 [facility] Carbon dioxide, total [Moles /volume] in Serum or PlasmaOrdered By: Carlitos Nguyen on 04-25-2023 CO2 [Moles/Vol] 25.9 mmol/L 21.0-31.0 [facility] Chloride [Moles/volume] in S colin or PlasmaOrdered By: Carlitos Nguyen on 04-25-2023 Chloride [Moles/Vol] 105 mmol/L 98-107 [facility] Cholesterol [Mass/volume] in Serum or PlasmaOrdered By: Carlitos Nguyen on 04-25-2023 Cholesterol [Mass/Vol] 208 mg/dL 140-200 [facility] Comment on above: Chol less than 200 m g/dl low riskChol 201-239 mg/dl borderline riskChol 240 mg/dl and greater high risk Cholesterol in LDL Calc [Mas s/Vol]Ordered By: Carlitos Nguyen on 04-25-2023 Cholesterol in LDL [Mass/Vol] 136 mg/dL 0-100 [facility] Comment on above: LDL ATP III CLASSIFI CATIONLDL less than 100 mg/dL OptimalLDL 100-129 mg/dL Near or above optimalLDL 130-159 mg/dL Borderline highLDL 160-189 mg/dL HighLDL greater than 189 mg/dL Very high Cholesterol in VLDL Calc [Ma ss/Vol]Ordered By: Carlitos Nguyen on 04-25-2023 Cholesterol in VLDL [Mass/Vol] 16 mg/dL [facility] Creatinine [Mass/volume] in Serum or PlasmaOrdered By: Carlitos Nguyen on 04-25-2023 Creatinine [Mass/Vol] 0.81 mg/dL 0.60-1.20 [facility] Globulin Calc (S) [Mass/Vol] Ordered By: Carlitos Nguyen on 04-25-2023 Globulin (S) [Mass/Vol] 2.6 g/dL [facility] Glucose [Mass/volume] in Ser um or PlasmaOrdered By: Carlitos Nguyen on 04-25-2023 Glucose [Mass/Vol] 84 mg/dL 70-100 [facility] No Panel InformationOrdered By: Carlitos Nguyen on 04-25-2023 Estimated GFR (CKD-EPI) > 60.0 mL/Min [facility] Creatinine Clearance (Chem N/A [facility] Potassium [Moles/volume] in Serum or PlasmaOrdered By: Carlitos Nguyen on 04-25-2023 Potassium [Moles/Vol] 4.3 mmol/L 3.5-5.1 [facility] Comment on above: Hemolysis is present at a level that could interfere with the result. Protein [Mass/volume] in Ser um or PlasmaOrdered By: Carlitos Nguyen on 04-25-2023 Protein [Mass/Vol] 7.4 g/dL 6.4-8.9 [facility] Serum or plasma albumin/glob ulin mass ratioOrdered By: Carlitos Nguyen on 04-25-2023 Albumin/Globulin [Mass ratio] 1.8 {ratio} [facility] Serum or plasma anion gap de terminationOrdered By: Carlitos Nguyen on 04-25-2023 Anion gap [Moles/Vol] 12.4 mmol/L 6.0-15.0 [facility] Serum or plasma high density lipoprotein (HDL) cholesterol measurementOrdered By: Carlitos Nguyen on 04-25-2023 Cholesterol in HDL [Mass/Vol] 55 mg/dL 23-92 [facility] Comment on above: HDL CHOL ATP-III CLA SSIFICATION Cardiovascular RiskHDL > or equal to 60 mg/dL LOWHDL < 40 mg/dL HIGH Serum or plasma total choles terol/high density lipoprotein (HDL) cholesterol mass ratOrdered By: Carlitos Nguyen on 04-25-2023 Cholesterol.total/Chol esterol in HDL [Mass ratio] 3.8 {ratio} <5.0 [facility] Sodium [Moles/volume] in Ser um or PlasmaOrdered By: Carlitos Nguyen on 04-25-2023 Sodium [Moles/Vol] 139 mmol/L 136-145 [facility] Triglyceride [Mass/volume] i n Serum or PlasmaOrdered By: Carlitos Nguyen on 04-25-2023 Triglyceride [Mass/Vol] 83 mg/dL 0-149 [facility] Comment on above: TRIG ATP III CLASSIF ICATIONTRIG less than 150 mg/dL NormalTRIG 150-199 mg/dL Borderline highTRIG 200-500 mg/dL High TRIG greater than 500 mg/dL Very highStandard traceable to the Center for Disease Conrtrol and Prevention (CDC) test method. Urea nitrogen [Mass/volume] in Serum or PlasmaOrdered By: Carlitos Nguyen on 04-25-2023 Urea nitrogen [Mass/Vol] 15 mg/dL 7-25 [facility] Tobacco Screening.on 023 Adult depression screening assessment No [facility] DO Work Phone: Fall risk assessment a) No falls within the last year [facility] yeppt DO Work Phone: Tobacco use status CPHS b) No [facility] yeppt DO Work Phone: Office Visit (Cardiology)on 09-11-2022 [...] in adult Healthy Weight Tips; Status:Complete; Done: [id number] SocHx: Never a smoker Tobacco Use Screening; Status:Complete; Done: [id number] Patient Instructions Please bring all medicines, vitamins, [...] she did get a second opinion in [place], and no change in medication was suggested [...] sinus sometime (more content not included)... Normal [facility] Tobacco Screening.on 022 Tobacco use status CPHS b) No [facility] 250 DO Work Phone: Cardiovasc Arrhythmia Result son 07-31-2022 Cardiovasc Arrhythmia Results Reason For Visit MADYSON is here for the application of a [employer] monitor. Ordering Physician: Dr. Maza Diagnosis: abn TTT, dyspnea, syncope, autonomic orthostatic hypotension [facility] equipment agreement signed. MADYSON understands monitor is to be returned on: 08/14/22 Monitor number [id number] applied. Procedure Date I received for dictation [...] MD; Aug 28 2022 10:26AM EST Normal [facility] Office Visit (Cardiology)on 07-21-2022 Follow-up visit Diagnoses/Problems [...] contain caffeine.; Status:Complete - Retrospective Authorization; Done: [id number] Begin or continue regular aerobic exercise. Gradually work up to at least 3 sessions of 30 minutes of exercise a week.; Status:Complete - Retrospective Authorization; Done: [id number] Diets that are low in carbohydrates and [...] a smoker Tobacco Use Screening; Status:Complete; Done: [id number] Patient Instructions Drink plenty of water daily, [...] heart murmur and has been transferred to [facility] There is no family history [...] cardiac data (more content not included)... Normal [facility] Tobacco Screening.on 022 Fall risk assessment b) One or more fall s in the last year [facility] DO Work Phone: Tobacco use status CPHS b) No [facility] [employer] 320 DO Work Phone: Office Visit (Cardiology)on [...] Confirmed - N/A AMA Intake updated by [facility] ([facility]) on 2022-07-11 22:02 New Recipient: Annalee Maza New Appointment Date: 2022-07-21 07:20 Autonomic orthostatic hypotension, Syncope, unspecified syncope type Changed: From To Midodrine HCl - 10 MG Oral Tablet TAKE 1 TABLET 3 TIMES DAILY Class 1 obesity with body mass index (BMI) of 31.0 to 31.9 in adult Avoid getting up or changing positions quickly.; Status:Complete; Done: [id number] Healthy Weight Tips; Status:Complete; Done: 80Fyd3894 Some eating tips that can help you lose weight.; Status:Complete; Done: [id number] Dyspnea (786.09) (R06.00) Class 1 obesity with [...] from 6 (more content not included)... Normal [facility] Tobacco Screening.on 022 Tobacco use status HS b) No [facility] 250 DO Work Phone: COVID CepheidOrdered By: Daniele Pearce on 06-01-2022 SARS-CoV-2 (COVID-19) Ab IA Ql Negative Negative [facility] Comment on above: This is a duplicate [employer] Xpert Xpress CoV-2/Flu/RSV Plus RNA by RT-PCR result to be used for statistical tracking purpose only. SARS-CoV-2 (COVID-19) RNA PERFECTO+probe Ql (Unsp spec) [facility] Office Visit (Cardiology)on 05-18-2022 Follow-up [...] in adult Healthy Weight Tips; Status:Complete; Done: [id number] Some eating tips that can help you lose weight.; Status:Complete; Done: [id number] Dyspnea, Syncope, unspecified syncope type Urine Test; Status:Active - Retrospective By Protocol Authorization; Requested for:[id number]; Palpitation Start: Atenolol 25 MG Oral Tablet; TAKE 1 TABLET DAILY Syncope, unspecified syncope type Tilt Table; Status:Hold For - Scheduling,Retrospective By Protocol Authorization; Requested for:[id number]; Patient Instructions Please bring all medicines, vitamins, [...] walking to the bathroom. She will see kiss setter hand in the near future, she had her pulmonary function test which I reviewed, there is concern for chronic asthma, but no reactive airway disease. She has 3 dogs that she had, and 1 cat at home. She is not orthostatic. She is feeling palpitations quite a bit. Results of the pulmonary function test and a [employer] was reviewed. Also reviewed stress test and [...] 3.5 c (more content not included)... Normal [facility] Tobacco Screening.on 022 Tobacco use status CPHS b) No [facility] 250 DO Work Phone: No Panel Informationon 05-03 [facility] 250 DO Work Phone: -[facility] 250 DO Work Phone: Cardiovasc Arrhythmia Result son 03-28-2022 Cardiovasc Arrhythmia Results Reason For Visit Event Monitor: MADYSON is here for the application of a 30 day event monitor in office., Diagnosis: Palps, Dyspnea, Chest pain Ordering Physician: MG Malone sent to: [facility] Monitor number [id number] applied. Holter monitor printed and placed on [...] ySite 05/03/2022 10:00 AMMaría Elena Freire MDCardiologySurgery [facility] 05/18/2022 09:15 [facility] 250 DO Signatures Electronically signed by : Melodie Alcaraz MD; May 01 2022 7:56PM EST (Author) Normal [facility] - Chemistry and C hemistry - challengeOrdered By: Melodie Alcaraz on 03-24-2022 Natriuretic peptide B (Bld) [Mass/Vol] 27.0 pg/mL 5-100 [facility] No Panel InformationOrdered By: Melodie Alcaraz on 03-24-2022 D-Dimer Quantitative (PE/DVT) < 200 ng/mL 0-243 [facility] Comment on above: The reference [...] No Panel Informationon 03-24 0.70\S\0.70 Normal 0.45-5.33 -[facility] 250 DO Work Phone: Comment on above: PERFORMED BY:[place] [address] [address] [place] [id number] MEDICAL DIRECTOROFE ELLIS M.D. 0.99\S\0.99 Normal 0.61-1.12 [facility] 250 DO Work Phone: 27.0\S\27.0 Normal 5-100 [facility] Work Phone: Comment on above: PERFORMED BY:[place] [address] [place] [place], [place] [id number] MEDICAL DIRECTOROFE ELLIS M.D. < 200 Normal 0-243 [facility] Work Phone: Comment on [...] in hospitalized patients due to co-morbid conditions.PERFORMED BY:[place] [address] [address] [place], [place] [id number] MEDICAL DIRECTOROFE ELLIS M.D. TSH DL <= 0.005 mIU/L QnOrde red By: Melodie Alcaraz on 03-24-2022 TSH Qn 0.70 m[IU]/L 0.45-5.33 [facility] Thyroxine (T4) free [Mass/vo lume] in Serum or PlasmaOrdered By: Melodie Alcaraz on 03-24-2022 Free T4 [Mass/Vol] 0.99 ng/dL 0.61-1.12 [facility] Office Visit (Cardiology)on 03-23-2022 Follow-up visit Diagnoses/Problems [...] twin brother had to [facility], and has history of heart murmur. [...] frequently pic (more content not included)... Normal [facility] PHQ-2 VITALSon 03-23-2022 Adult depression screening assessment No [facility] y 250 DO Work Phone: Fall risk assessment c) Not medically indicated [facility] y 250 DO Work Phone: Tobacco use status CPHS b) No [facility] [employer] y 250 DO Work Phone: ARMANI BY IFA WITH REFLEXon Nuclear Ab IF (S) [Titer] Negative Negative [facility] CCP ANTIBODY IGGon Cyclic citrullinated peptide IgG Qn <15 <20 Units [facility] Cyclic citrullinated peptide IgG Qnon 01-26-2022 CCP Antibody IgG Qualitative Negative Negative [facility] Nuclear Ab IA Ql (S)on 01-26 ARMANI by EIA, Qual Negative Negative [facility] ARMANI BY IFA WITH REFLEXon Nuclear Ab IF (S) [Titer] Negative Normal Negative [facility] Comment on above: Order Comment: Speci men Type: BLOOD SPECIMEN Ordering Facility: [facility] Address: [address], [place] [address] Result Comment: Anti -nuclear antibody test is used as an aid in diagnosis of systemic autoimmune diseases. Where positive and clinically warranted, follow-up using disease-specific testing is recommended. Low positive titers are not uncommon with advanced age, certain chronic infections, and malignancies among others. Test methodology: Indirect fluorescence immunoassay (IFA) using HEp-2 cells. Performed By: #### A NAIFR #### [facility] CLIA [id number] [address] [place] [address] [place] C-REACTIVE PROTEIN (CRP)on 0 01-25-2022 CRP [Mass/Vol] 0.4 mg/dL <0.9 mg/dL [facility] C1 ESTERASE INHIBITon 2021 C1 ESTERASE INHIBIT 26 mg/dL Normal 21-38 [facility] Comment on above: Order Comment: Jose Carlos oseguera Type: BLOOD SPECIMEN Ordering Facility: [facility] Address: [address] [place] [address] Result Comment: Perf ormed By: [employer] [address] [place] [id number] Professor Of Latin American Studies: Brittni Moscoso MD Performed By: #### 1 6570-4, 43026-3, 69883-8, 37835-6, 70561-6, 16361-3, 31021-8, 52554-4 #### [facility] CLIA [id number] [address] [place] [address] [place] C2 COMPLEMENT BLDon 01-26-20 22 C2 COMPLEMENT 2.4 mg/dL Normal 1.6-4.0 [facility] Comment on above: Order Comment: Jose Carlos oseguera Type: BLOOD SPECIMEN Ordering Facility: [facility] Address: [address] [place] [address] Result Comment: INTE RPRETIVE INFORMATION: Complement Component 2 Decreased C2 levels may be associated with increased susceptibility to infection (especially pneumococcal infections), systemic lupus erythematosus-like disease, rashes, arthritis and nephritis, and with C1-Esterase deficiency. Increased C2 levels are associated with the acute phase response. This test was developed and its performance characteristics determined by [employer]. It has not been cleared or approved by the [place] Food and Drug Administration. This test was performed in a CLIA certified laboratory and is intended for clinical purposes. Performed By: [employer] [address] [place] [id number] Professor Of Latin American Studies: Brittni Moscoso MD Performed By: #### 1 6570-4, 31136-7, 53059-6, 41136-2, 03325-6, 43428-0, 09365-3, 95223-3 #### [facility] CLIA [id number] [address] [place] [address] [place] C3 COMPLEMENT BLDon 01-26-20 22 Complement C3 [Mass/Vol] 130 mg/dL 86 - 166 mg/dL [facility] C3 SerPl-mCncon 01-25-2022 Complement C3 [Mass/Vol] 130 mg/dL Normal 86-166 [facility] Comment on above: Order Comment: Speci men Type: BLOOD SPECIMEN Ordering Facility: [facility] Address: [address] [place] [address] Performed By: #### 1 6570-4, 91113-2, 52384-1, 56453-5, 95763-7, 20067-2, 98333-2, 88996-4 #### [facility] CLIA [id number] [address] [place] [address] [place] C4 COMPLEMENT BLDon 01-26-20 22 Complement C4 [Mass/Vol] 30 mg/dL 13 - 46 mg/dL [facility] C4 SerPl-mCncon 01-25-2022 Complement C4 [Mass/Vol] 30 mg/dL Normal 13-46 [facility] Comment on above: Order Comment: Speci men Type: BLOOD SPECIMEN Ordering Facility: [facility] Address: [address] [place] [address] Performed By: #### 1 6570-4, 56544-1, 96744-2, 67863-1, 25948-2, 95114-6, 20098-2, 43106-9 #### [facility] CLIA [id number] [address] [place] [address] [place] CBC panel Auto (Bld)on 01-25 Erythrocyte distribution width (RBC) [Ratio] 12.1 % Normal 11.5-15.0 [facility] Comment on above: Order Comment: Speci men Type: BLOOD SPECIMEN Ordering Facility: [facility] Address: [address] [place] [address] Performed By: #### 1 6570-4, 45295-4, 51683-8, 91778-4, 34325-3, 68736-3, 30594-6, 76014-4 #### [facility] CLIA [id number] [address] [place] [address] [place] Hematocrit (Bld) [Volume fraction] 42.6 % Normal 36.0-46.0 [facility] Comment on above: Order Comment: Speci men Type: BLOOD SPECIMEN Ordering Facility: [facility] Address: [address] [place] [address] Performed By: #### 1 6570-4, 09458-0, 49618-7, 83088-6, 76204-1, 82925-3, 99924-8, 86116-1 #### [facility] CLIA [id number] [address] [place] [address] [place] Hemoglobin (Bld) [Mass/Vol] 13.8 g/dL Normal 11.5-15.5 [facility] Comment on above: Order Comment: Speci men Type: BLOOD SPECIMEN Ordering Facility: [facility] Address: [address] [place] [address] Performed By: #### 1 6570-4, 00776-7, 02851-9, 18668-9, 28476-8, 21065-2, 29326-8, 82019-7 #### [facility] CLIA [id number] [address] [place] [address] [place] MCH (RBC) [Entitic mass] 28.3 pg Normal 26.0-34.0 [facility] Comment on above: Order Comment: Speci men Type: BLOOD SPECIMEN Ordering Facility: [facility] Address: [address] [place] [address] Performed By: #### 1 6570-4, 99739-5, 03872-6, 46726-1, 76059-3, 12192-4, 35709-5, 37576-9 #### [facility] CLIA [id number] [address] [place] [address] [place] MCHC (RBC) [Mass/Vol] 32.4 g/dL Normal 30.5-36.0 [facility] Comment on above: Order Comment: Speci men Type: BLOOD SPECIMEN Ordering Facility: [facility] Address: [address] [place] [address] Performed By: #### 1 6570-4, 12153-4, 36907-7, 67311-0, 50548-2, 85264-2, 63249-1, 20740-2 #### [facility] CLIA [id number] [address] [place] [address] [place] MCV (RBC) [Entitic vol] 87.3 fL Normal 80.0-100.0 [facility] Comment on above: Order Comment: Speci men Type: BLOOD SPECIMEN Ordering Facility: [facility] Address: [address] [place] [address] Performed By: #### 1 6570-4, 46474-7, 95214-1, 20287-9, 27822-1, 65138-2, 09396-7, 82912-2 #### [facility] CLIA [id number] [address] [place] [address] [place] Nucleated RBC (Bld) [#/Vol] 10*3/uL Normal <0.01 [facility] Comment on above: Order Comment: Speci men Type: BLOOD SPECIMEN Ordering Facility: [facility] Address: [address] [place], [place] [id number] Performed By: #### 1 6570-4, 26400-4, 27732-7, 03662-7, 23144-1, 93351-7, 12763-7, 69661-1 #### [facility] CLIA [id number] [address] [place] [address] [place] Platelet mean volume (Bld) [Entitic vol] 10.3 fL Normal 9.0-12.7 [facility] Comment on above: Order Comment: Speci men Type: BLOOD SPECIMEN Ordering Facility: [facility] Address: [address] [place] [address] Performed By: #### 1 6570-4, 93063-8, 77012-3, 42745-9, 24700-6, 84025-1, 75342-6, 24816-8 #### [facility] CLIA [id number] [address] [place] [address] [place] Platelets (Bld) [#/Vol] 213 10*3/uL Normal 150-400 [facility] Comment on above: Order Comment: Speci men Type: BLOOD SPECIMEN Ordering Facility: [facility] Address: [address] [place] [address] Performed By: #### 1 6570-4, 78638-8, 14846-2, 00398-5, 33932-1, 77032-5, 49132-6, 74477-0 #### [facility] CLIA [id number] [address] [place] [address] [place] RBC (Bld) [#/Vol] 4.88 10*6/uL Normal 3.90-5.20 [facility] Comment on above: Order Comment: Speci men Type: BLOOD SPECIMEN Ordering Facility: [facility] Address: [address] [place] [address] Performed By: #### 1 6570-4, 37907-6, 23084-8, 80617-3, 21419-2, 02038-1, 92489-1, 25268-7 #### [facility] CLIA [id number] [address] [place] [address] [place] WBC (Bld) [#/Vol] 4.77 10*3/uL Normal 3.70-11.00 [facility] Comment on above: Order Comment: Speci men Type: BLOOD SPECIMEN Ordering Facility: [facility] Address: [address] [place] [address] Performed By: #### 1 6570-4, 69120-3, 86426-6, 05229-3, 69501-4, 74506-0, 36400-7, 63004-1 #### [facility] CLIA [id number] [address] [place], [place] [address] [address] STATES OF [facility] Erythrocyte distribution width (RBC) [Ratio] 12.1 % 11.5 - 15.0 % [facility] Hematocrit (Bld) [Volume fraction] 42.6 % 36.0 - 46.0 % [facility] Hemoglobin (Bld) [Mass/Vol] 13.8 g/dL 11.5 - 15.5 g/dL [facility] MCH (RBC) [Entitic mass] 28.3 pg 26.0 - 34.0 pg [facility] MCHC (RBC) [Mass/Vol] 32.4 g/dL 30.5 - 36.0 g/dL [facility] MCV (RBC) [Entitic vol] 87.3 fL 80.0 - 100.0 fL [facility] Nucleated RBC (Bld) [#/Vol] 10*3/uL <0.01 k/uL [facility] Platelet mean volume (Bld) [Entitic vol] 10.3 fL 9.0 - 12.7 fL [facility] Platelets (Bld) [#/Vol] 213 10*3/uL 150 - 400 k/uL [facility] RBC (Bld) [#/Vol] 4.88 10*6/uL 3.90 - 5.20 m/uL [facility] WBC (Bld) [#/Vol] 4.77 10*3/uL 3.70 - 11.00 k/uL [facility] CRP SerPl-mCncon 01-25-2022 CRP [Mass/Vol] 0.4 mg/dL Normal <0.9 [facility] Comment on above: Order Comment: Speci men Type: BLOOD SPECIMEN Ordering Facility: [facility] Address: [address] [place], [place] [id number] Performed By: #### 1 6570-4, 03415-5, 81601-0, 38718-4, 70454-9, 68456-1, 40759-6, 68494-2 #### [facility] CLIA [id number] [address] [place] [address] [place] Centromere Ab IF Ql (S)on Centromere Ab Qn (S) <0.2 Normal <1.0 [facility] Comment on above: Order Comment: Speci men Type: BLOOD SPECIMEN Ordering Facility: [facility] Address: [address] [place] [address] Result Comment: Anti -centromere antibody is used as in aid in diagnosis of systemic sclerosis. Clinical correlation is required. Test Methodology: Multiplex flow immunoassay. Performed By: #### 1 6570-4, 97305-8, 79182-8, 32206-8, 49344-5, 59280-3, 00410-5, 31589-8 #### [facility] CLIA [id number] [address] [place] [address] STATES [facility] CENTROMERE AB QUAL Negative Normal Negative [facility] Comment on above: Order Comment: Speci men Type: BLOOD SPECIMEN Ordering Facility: [facility] Address: [address] [place], [place] [id number] Performed By: #### 1 6570-4, 54462-1, 33235-2, 47043-6, 09761-2, 64735-1, 33798-3, 07743-2 #### [facility] CLIA [id number] [address] [place] [address] [place] Chromatin Ab Qnon 01-25-2022 CHROMATIN AB QUAL Negative Normal Negative [facility] Comment on above: Order Comment: Speci men Type: BLOOD SPECIMEN Ordering Facility: [facility] Address: [address] [place], [place] [id number] Performed By: #### 1 6570-4, 45533-7, 84906-1, 35503-4, 70108-3, 96525-7, 83587-3, 05319-9 #### [facility] CLIA [id number] [address] [place] [address] [place] Chromatin Ab SerPl-aCncon Chromatin Ab Qn <0.2 Normal <1.0 [facility] Comment on above: Order Comment: Speci men Type: BLOOD SPECIMEN Ordering Facility: [facility] Address: [address] [place], [place] [id number] Result Comment: Test Methodology: Multiplex flow immunoassay. Performed By: #### 1 6570-4, 50009-2, 22119-5, 41551-4, 86490-7, 34059-8, 43715-0, 67715-1 #### [facility] CLIA [id number] [address] [place] [address] Comprehensive metabolic 2000 panelon 01-25-2022 Albumin [Mass/Vol] 4.5 g/dL 3.9 - 4.9 g/dL [facility] ALP [Catalytic activity/Vol] 65 U/L 34 - 123 U/L [facility] ALT [Catalytic activity/Vol] 14 U/L 7 - 38 U/L [facility] Anion gap [Moles/Vol] 11 mmol/L 9 - 18 mmol/L [facility] AST [Catalytic activity/Vol] 14 U/L 13 - 35 U/L [facility] Bilirubin [Mass/Vol] 0.3 mg/dL 0.2 - 1 .3 mg/dL [facility] Calcium [Mass/Vol] 9.5 mg/dL 8.5 - 10. 2 mg/dL [facility] Chloride [Moles/Vol] 105 mmol/L 97 - 10 5 mmol/L [facility] CO2 [Moles/Vol] 26 mmol/L 22 - 30 mmol/L [facility] Creatinine [Mass/Vol] 0.71 mg/dL 0.58 - 0.96 mg/dL [facility] Estimated Glomerular Filtration Rate 125 mL/min/1.73m >=60 mL/min/1.7 3m [facility] Glucose [Mass/Vol] 94 mg/dL 74 - 99 mg/dL [facility] Potassium [Moles/Vol] 4.6 mmol/L 3.7 - 5.1 mmol/L [facility] Protein [Mass/Vol] 7.2 g/dL 6.3 - 8.0 g/dL [facility] Sodium [Moles/Vol] 142 mmol/L 136 - 144 mmol/L [facility] Urea nitrogen [Mass/Vol] 8 mg/dL 7 - 21 mg/dL [facility] Albumin [Mass/Vol] 4.5 g/dL Normal 3.9-4.9 [facility] Comment on above: Order Comment: Speci men Type: BLOOD SPECIMEN Ordering Facility: [facility] Address: [address] [place] [address] Performed By: #### 1 6570-4, 65824-6, 13448-5, 03426-0, 49435-1, 06118-3, 55339-9, 39889-4 #### [facility] CLIA [id number] [address] [place] [address] [place] ALP [Catalytic activity/Vol] 65 U/L Normal 34-123 [facility] Comment on above: Order Comment: Speci men Type: BLOOD SPECIMEN Ordering Facility: [facility] Address: [address] [place] [address] Performed By: #### 1 6570-4, 62214-8, 18704-4, 67216-7, 81261-6, 30127-3, 01254-0, 83549-7 #### [facility] CLIA [id number] [address] [place] [address] [place] ALT [Catalytic activity/Vol] 14 U/L Normal 7-38 [facility] Comment on above: Order Comment: Speci men Type: BLOOD SPECIMEN Ordering Facility: [facility] Address: [address] [place] [address] Performed By: #### 1 6570-4, 13879-0, 80432-4, 78720-2, 28462-9, 75443-3, 41765-2, 30081-9 #### [facility] CLIA [id number] [address] [place] [address] [place] Anion gap [Moles/Vol] 11 mmol/L Normal 9-18 [facility] Comment on above: Order Comment: Speci men Type: BLOOD SPECIMEN Ordering Facility: [facility] Address: [address] [place] [address] Performed By: #### 1 6570-4, 27345-9, 57291-4, 59817-9, 42199-4, 95150-5, 03075-3, 63714-1 #### [facility] CLIA [id number] [address] [place] [address] [place] AST [Catalytic activity/Vol] 14 U/L Normal 13-35 [facility] Comment on above: Order Comment: Speci men Type: BLOOD SPECIMEN Ordering Facility: [facility] Address: [address] [place] [address] Performed By: #### 1 6570-4, 00769-3, 37918-6, 18942-5, 37733-4, 31651-9, 38960-8, 16936-8 #### [facility] CLIA [id number] [address] [place] [address] [place] Bilirubin [Mass/Vol] 0.3 mg/dL Normal 0.2-1.3 [facility] Comment on above: Order Comment: Speci men Type: BLOOD SPECIMEN Ordering Facility: [facility] Address: [address] [place] [address] Performed By: #### 1 6570-4, 79421-0, 59744-0, 53735-2, 91338-9, 38489-3, 79818-2, 34729-1 #### [facility] CLIA [id number] [address] [place] [address] [place] Calcium [Mass/Vol] 9.5 mg/dL Normal 8.5-10.2 [facility] Comment on above: Order Comment: Speci men Type: BLOOD SPECIMEN Ordering Facility: [facility] Address: [address] [place] [address] Performed By: #### 1 6570-4, 31248-4, 83453-2, 42497-6, 44363-7, 91049-3, 36080-0, 97440-9 #### [facility] CLIA [id number] [address] [place] [address] [place] Chloride [Moles/Vol] 105 mmol/L Normal 97-105 [facility] Comment on above: Order Comment: Speci men Type: BLOOD SPECIMEN Ordering Facility: [facility] Address: [address] [place] [address] Performed By: #### 1 6570-4, 04296-1, 93438-0, 92937-8, 12017-7, 44270-6, 81329-1, 67727-1 #### [facility] CLIA [id number] [address] [place] [address] [place] CO2 [Moles/Vol] 26 mmol/L Normal 22-30 [facility] Comment on above: Order Comment: Speci men Type: BLOOD SPECIMEN Ordering Facility: [facility] Address: [address] [place], [place] [id number] Performed By: #### 1 6570-4, 09817-2, 30971-1, 70210-6, 26431-7, 56153-1, 43812-1, 85311-8 #### [facility] CLIA [id number] [address] [place] [address] [place] Creatinine [Mass/Vol] 0.71 mg/dL Normal 0.58-0.96 [facility] Comment on above: Order Comment: Speci men Type: BLOOD SPECIMEN Ordering Facility: [facility] Address: [address] [place], [place] [id number] Performed By: #### 1 6570-4, 41275-9, 89884-0, 12727-9, 82172-6, 88029-8, 48659-5, 66846-6 #### [facility] CLIA [id number] [address] [place] [address] [place] ESTIMATED GLOMERULAR FILTRATION RATE 125 mL/min/1.73m??? Normal >=60 [facility] Comment on above: Order Comment: Jose Carlos oseguera Type: BLOOD SPECIMEN Ordering Facility: [facility] Address: [address] [place] [address] Result Comment: Francesca mated Glomerular Filtration Rate [...] actual GFR. Performed By: #### 1 6570-4, 21993-2, 98594-7, 39293-2, 62780-3, 33002-5, 68773-1, 80019-8 #### [facility] CLIA [id number] [address] [place] [address] [place] Glucose [Mass/Vol] 94 mg/dL Normal 74-[address] [facility] Comment on above: Order Comment: Jose Carlos oseguera Type: BLOOD SPECIMEN Ordering Facility: [facility] Address: [address] [id number] Result Comment: The [place] [employer] Association (ADA) provides guidance for cutoff [...] Standards of Medical Care in Diabetes 2016, [place] [employer]. Diabetes Care. 2016.39(Suppl 1). Performed By: #### 1 6570-4, 56305-9, 42224-1, 59719-7, 66315-7, 65553-8, 73077-6, 05938-9 #### [facility] CLIA [id number] [address] [place] [address] [place] Potassium [Moles/Vol] 4.6 mmol/L Normal 3.7-5.1 [facility] Comment on above: Order Comment: Speci men Type: BLOOD SPECIMEN Ordering Facility: [facility] Address: [address] [place] [address] Performed By: #### 1 6570-4, 83690-3, 87358-2, 96026-5, 88966-3, 70179-9, 08465-4, 60541-5 #### [facility] CLIA [id number] [address] [place] [address] [place] Protein [Mass/Vol] 7.2 g/dL Normal 6.3-8.0 [facility] Comment on above: Order Comment: Speci men Type: BLOOD SPECIMEN Ordering Facility: [facility] Address: [address] [place] [address] Performed By: #### 1 6570-4, 83776-1, 31120-5, 11575-7, 78857-8, 99218-3, 31917-0, 02842-0 #### [facility] CLIA [id number] [address] [place] [address] [place] Sodium [Moles/Vol] 142 mmol/L Normal 136-144 [facility] Comment on above: Order Comment: Speci men Type: BLOOD SPECIMEN Ordering Facility: [facility] Address: [address] [place] [address] Performed By: #### 1 6570-4, 14127-0, 89944-9, 57590-3, 45921-1, 02642-6, 77837-7, 10337-4 #### [facility] CLIA [id number] [address] [place] [address] [place] Urea nitrogen [Mass/Vol] 8 mg/dL Normal 7-21 [facility] Comment on above: Order Comment: Speci men Type: BLOOD SPECIMEN Ordering Facility: [facility] Address: [address] [place], [place] [id number] Performed By: #### 1 6570-4, 99036-2, 03743-0, 38532-3, 19841-4, 73450-6, 28265-6, 72395-3 #### [facility] CLIA [id number] [address] [place] [address] [place] Cyclic citrullinated peptide IgG Qnon 01-25-2022 CCP ANTIBODY IGG QUALITATIVE Negative Normal Negative [facility] Comment on above: Order Comment: Speci men Type: BLOOD SPECIMEN Ordering Facility: [facility] Address: [address] [place] [address] Performed By: #### 1 6570-4, 67964-0, 60573-4, 30749-8, 00429-9, 41463-8, 60536-7, 46716-3 #### [facility] CLIA [id number] [address] [place] [address] OF [place] Jo1 Ab Ser-aCncon 2021 Yuly-1 extractable nuclear Ab Qn (S) <0.2 Normal <1.0 [facility] Comment on above: Order Comment: Speci men Type: BLOOD SPECIMEN Ordering Facility: [facility] Address: [address] [place] [address] Performed By: #### 1 6570-4, 68733-8, 80972-9, 50702-4, 96632-3, 78318-2, 51159-6, 76931-3 #### [facility] CLIA [id number] [address] [place] [address] OF [place] STATION TENDER Ab Ser-aCncon 2021 Ribonucleoprotein extractable nuclear Ab Qn (S) <0.2 Normal <1.0 [facility] Comment on above: Order Comment: Speci men Type: BLOOD SPECIMEN Ordering Facility: [facility] Address: [address] [place], [place] [id number] Performed By: #### 1 6570-4, 70476-0, 67183-2, 59039-6, 98689-4, 45559-1, 24235-4, 85105-2 #### [facility] CLIA [id number] [address] [place] [address] STATES OF [place] SM IgG Ser-aCncon 2021 Cota extractable nuclear IgG Qn (S) <0.2 Normal <1.0 [facility] Comment on above: Order Comment: Speci men Type: BLOOD SPECIMEN Ordering Facility: [facility] Address: [address] [place] [address] Performed By: #### 1 6570-4, 62461-4, 38346-7, 46531-5, 85188-2, 57543-4, 91932-5, 48241-3 #### [facility] CLIA [id number] [address] [place] [address] OF [place] SS-A Ab Ser-aCncon 01-25 Sjogrens syndrome-A extractable nuclear Ab Qn (S) <0.2 Normal <1.0 [facility] Comment on above: Order Comment: Speci men Type: BLOOD SPECIMEN Ordering Facility: [facility] Address: [address] [place] [address] Result Comment: Test Methodology: Multiplex flow immunoassay. Performed By: #### 1 6570-4, 78016-0, 24851-5, 67309-0, 44445-9, 07334-0, 97010-8, 24694-1 #### [facility] CLIA [id number] [address] [place] [address] [place] SS-B Ab Ser-aCncon 01-25 Sjogrens syndrome-B extractable nuclear Ab Qn (S) <0.2 Normal <1.0 [facility] Comment on above: Order Comment: Speci men Type: BLOOD SPECIMEN Ordering Facility: [facility] Address: [address] [place] [address] Result Comment: Anti -SSB (anti-La) antibody is used as an aid in diagnosis of a variety of systemic autoimmune diseases, especially for Sjogren's syndrome and systemic lupus erythematosus. Clinical correlation is required. Test Methodology: Multiplex flow immunoassay. Performed By: #### 1 6570-4, 74909-1, 12484-3, 36491-6, 04993-9, 57073-9, 52515-3, 17624-9 #### [facility] CLIA [id number] [address] [place] [address] [place] ESR Westergren method (Bld) [Velocity]on 01-25-2022 ESR (Bld) [Velocity] 2 mm/h 0 - 20 mm/hr [facility] ESR (Bld) [Velocity] 2 mm/h Normal 0-20 [facility] Comment on above: Order Comment: Jose Carlos oseguera Type: BLOOD SPECIMEN Ordering Facility: [facility] Address: [address] [place] [address] Performed By: #### 1 6570-4, 45938-4, 85733-2, 68859-1, 83525-9, 71292-5, 66228-0, 67648-7 #### [facility] CLIA [id number] [address] [place] [address] STATES [place] [facility] HBV core Ab Ser Qlon 022 HBV core Ab Ql (S) Negative Normal Negative [facility] Comment on above: Order Comment: Jose Carlos [facility] Type: BLOOD SPECIMEN Ordering Facility: [facility] Address: [address] [place] [address] Result Comment: No e vidence of current or past infection with Hepatitis B virus. Should recent infection be suspected, repeat testing may be considered 3-4 weeks after this draw. Performed By: #### 1 6570-4, 21736-3, 95800-0, 22830-2, 07529-2, 76721-9, 25191-6, 29726-5 #### [facility] CLIA [id number] [address] [place] [address] [place] HBV surface Ab IA Ql (S)on 0 01-25-2022 HBV surface Ag Ql (S) Negative Normal Negative [facility] Comment on above: Order Comment: Speci men Type: BLOOD SPECIMEN Ordering Facility: [facility] Address: [address] [place] [address] Performed By: #### 1 6570-4, 61253-5, 60735-6, 05726-8, 84664-1, 87735-1, 10442-5, 03636-9 #### [facility] CLIA [id number] [address] [place] [address] HBV surface Ab Ser Qlon HBV surface Ab Ql (S) Negative Normal Negative [facility] Comment on above: Order Comment: Jose Carlos oseguera Type: BLOOD SPECIMEN Ordering Facility: [facility] Address: [address] [place] [address] Result Comment: No e vidence of current or past infection with Hepatitis B virus. Should recent infection be suspected, repeat testing may be considered 3-4 weeks after this draw. Performed By: #### 1 6570-4, 83979-2, 38252-2, 02964-2, 93509-9, 18556-0, 30265-3, 29069-5 #### [facility] CLIA [id number] [address] [place] [address] HCV Ab Ser Qlon 01-25-2022 HCV Ab Ql (S) Negative Normal Negative [facility] Comment on above: Order Comment: Speci men Type: BLOOD SPECIMEN Ordering Facility: [facility] Address: [address] [place] [address] Result Comment: The result suggests no evidence of active infection with Hepatitis C virus. Should recent infection be suspected, repeat testing may be considered 4-6 weeks after this draw. Performed By: #### 1 6570-4, 94537-9, 19846-2, 22004-3, 48510-9, 98185-6, 92534-7, 80192-9 #### [facility] CLIA [id number] [address] [place] [address] [place] Yuly-1 extractable nuclear Ab Qn (S)on 01-25-2022 YULY 1 ANTIBODY QUAL Negative Normal Negative [facility] Comment on above: Order Comment: Jose Carlos oseguera Type: BLOOD SPECIMEN Ordering Facility: [facility] Address: [address] [place] [address] Result Comment: Anti -YULY-1 antibody is used as an aid in diagnosis of polymyositis and dermatomyositis especially with pulmonary involvement. A negative result cannot rule out polymyositis or dermatomyositis. Clinical correlation is required. Test Methodology: Multiplex flow immunoassay. Performed By: #### 1 6570-4, 05777-9, 17727-1, 37750-7, 72081-1, 35167-0, 56645-5, 37725-7 #### [facility] IA [id number] [address] [place] [address] [place] Nuclear Ab IA Ql (S)on 01-25 ARMANI BY EIA, QUAL Negative Normal Negative [facility] Comment on above: Order Comment: Jose Carlos oseguera Type: BLOOD SPECIMEN Ordering Facility: [facility] Address: [address] [place] [address] Result Comment: The qualitative antinuclear antibody screen test performed using enzyme immunoassay including the following antigens: dsDNA, histones, SS-A, SS-B, Sm, Sm/STATION TENDER, Scl-70, Yuly-1, and centromeric antigens. Performed By: #### 1 6570-4, 86242-6, 09875-1, 50985-7, 69808-3, 68983-4, 51994-4, 26281-1 #### [facility] IA [id number] [address] [place] [address] [place] RHEUMATOID FACTOR BLon 01-25 Rheumatoid factor Qn [IU]/mL <16 IU/mL [facility] Rheumatoid factor Qn [IU]/mL Normal <16 [facility] Comment on above: Order Comment: Jose Carlos oseguera Type: BLOOD SPECIMEN Ordering Facility: [facility] Address: [address] [place] [address] Performed By: #### 1 6570-4, 30093-4, 14032-0, 35641-4, 08707-6, 97930-8, 75873-4, 74740-6 #### [facility] CLIA [id number] [address] [place] [address] [place] Ribonucleoprotein extractabl e nuclear Ab Qn (S)on 01-25-2022 ANTI-STATION TENDER QUAL Negative Normal Negative [facility] Comment on above: Order Comment: Speci men Type: BLOOD SPECIMEN Ordering Facility: [facility] Address: [address] [place] [address] Performed By: #### 1 6570-4, 67189-6, 36863-5, 63171-6, 69224-1, 62709-9, 27131-7, 04390-0 #### [facility] CLIA [id number] [address] [place] [address] [place] RIBOSOMAL STATION TENDER QUAL Negative Normal Negative [facility] Comment on above: Order Comment: Horacioi ana rosa Type: BLOOD SPECIMEN Ordering Facility: [facility] Address: [address] [place] [address] Result Comment: Anti -Ribosomal RNA (Ribosomal P) antibody is used as an aid in diagnosis of systemic autoimmune diseases especially systemic lupus erythematosus and mixed connective tissue disease. Cross-reactivity with Anti-cota antibody is not uncommon. Clinical correlation is required. Test Methodology: Multiplex flow immunoassay. Performed By: #### 1 6570-4, 73569-8, 87353-7, 94321-0, 02145-6, 14353-7, 82526-3, 23643-2 #### [facility] CLIA [id number] [address] [place] [address] [place] SCL-70 extractable nuclear I gG IA Qn (S)on 01-25-2022 SCLERODERMA AB QUAL Negative Normal Negative [facility] Comment on above: Order Comment: Speci men Type: BLOOD SPECIMEN Ordering Facility: [facility] Address: [address] [place] [address] Performed By: #### 1 6570-4, 52516-4, 50489-3, 17423-7, 52937-7, 61117-4, 54451-3, 62448-1 #### [facility] CLIA [id number] [address] [place] [address] [place] SCLERODERMA IGG AB <0.2 Normal <1.0 [facility] Comment on above: Order Comment: Speci men Type: BLOOD SPECIMEN Ordering Facility: [facility] Address: [address] [place] [address] Result Comment: Scl- 70/Scleroderma antibody test is used as an aid in diagnosis of systemic sclerosis especially the diffuse cutaneous form. A negative result cannot rule out systemic sclerosis. The final interpretation should consider clinical picture and other test results such as anti-centromere antibody. Test Methodology: Multiplex flow immunoassay. Performed By: #### 1 6570-4, 99487-7, 94492-8, 65117-0, 92375-7, 24191-8, 58405-6, 08672-0 #### [facility] CLIA [id number] [address] [place] [address] [place] Sjogrens syndrome-A extracta ble nuclear Ab Qn (S)on 01-25-2022 SSA ANTIBODY QUAL Negative Normal Negative [facility] Comment on above: Order Comment: Speci men Type: BLOOD SPECIMEN Ordering Facility: [facility] Address: [address] [place] [address] Performed By: #### 1 6570-4, 00119-2, 12005-3, 72277-1, 32310-0, 60343-0, 08825-0, 67073-1 #### [facility] CLIA [id number] [address] [place] [address] [place] Sjogrens syndrome-B extracta ble nuclear Ab Qn (S)on 01-25-2022 SSB ANTIBODY QUAL Negative Normal Negative [facility] Comment on above: Order Comment: Speci men Type: BLOOD SPECIMEN Ordering Facility: [facility] Address: [address] [place] [address] Performed By: #### 1 6570-4, 93253-7, 04741-4, 84311-1, 96760-1, 11118-7, 08962-6, 74738-5 #### [facility] CLIA [id number] [address] [place] [address] OF [facility] Cota extractable nuclear Ig G Qn (S)on 01-25-2022 SM ANTIBODY QUAL Negative Normal Negative [facility] Comment on above: Order Comment: Horacioi men Type: BLOOD SPECIMEN Ordering Facility: [facility] Address: [address] [place] [address] Result Comment: Anti -Sm (Cota) antibody is used as an aid in diagnosis of systemic lupus erythematosus and its presence is associated with renal disease. A negative result cannot rule out systemic lupus erythematosus. Clinical correlation is required. Test Methodology: Multiplex flow immunoassay. Performed By: #### 1 6570-4, 78531-3, 43003-5, 69235-5, 99536-1, 51301-6, 16413-7, 80662-4 #### [facility] CLIA [id number] [address] [place] [address] [place] cCP IgG SerPl-aCncon 022 Cyclic citrullinated peptide IgG Qn <15 Normal <20 [facility] Comment on above: Order Comment: Speci men Type: BLOOD SPECIMEN Ordering Facility: [facility] Address: [address] [place] [address] Performed By: #### 1 6570-4, 62104-7, 58627-0, 29345-3, 50012-9, 84832-7, 47136-4, 12689-8 #### [facility] CLIA [id number] [address] [place] [address] [place] XR ankle LT min 3V*on 2021 XR ankle LT min 3V* [facility] [employer] Other XR ankle LT min 3V* [facility] [employer] Other XR ankle LT min 3V* [address] [facility] Pull Other XR ankle LT min 3V* [place] [address] [place] [facility] Other XR ankle LT min 3V* [facility] Other XR ankle LT min 3V* Signed [employer] Other XR ankle LT min 3V* Patient: Madyson Schmid MR#: [id number] [place] [facility] Other XR ankle LT min 3V* : 2000 Acct:[id number] [employer] Other XR ankle LT min 3V* Age/Sex: 20 / F ADM Date: 10/10/21 [employer] Other XR ankle LT min 3V* Loc: XDUCLY Room: pe: [facility] [employer] Other XR ankle LT min 3V* Attending Dr: Christina GONZALEZ [employer] Other XR ankle LT min 3V* Ordering Provider: CARLOS Santos [employer] Other XR ankle LT min 3V* Date of Service: 10/10/21 [employer] Other XR ankle LT min 3V* XR/XR ankle LT min 3V*: Acute left ankle pain [employer] Other XR ankle LT min 3V* Copies to: CARLOS Beckman [employer] Other XR ankle LT min 3V* Left ankle 10/10/2021. [employer] Other XR ankle LT min 3V* CLINICAL DATA: Left ankle pain after twisting injury. [employer] Other XR ankle LT min 3V* FINDINGS: 3 views of the left ankle were obtained. [employer] Other XR ankle LT min 3V* No acute fracture or dislocation is identified. No other bony abnormality is seen. Anterolateral [employer] Other XR ankle LT min 3V* soft tissue swelling is noted. [employer] Other XR ankle LT min 3V* X R/XR ankle LT min 3V* [employer] Other XR ankle LT min 3V* IMPRESSION: Soft tis cody swelling. No acute bony abnormality. [employer] Other XR ankle LT min 3V* Impression dictated by: Erick Cueto Jr., M.D.10/10/2021 4:24 PM [employer] Other XR ankle LT min 3V* Dictation Location: [place] [address] [employer] Other XR ankle LT min 3V* Transcribed By: MIRELLA 10/10/21 162 [employer] Other XR ankle LT min 3V* Dictated By: Erick Cueto Jr, MD 10/10/21 162 [employer] Other XR ankle LT min 3V* Signed By: [employer] Other XR ankle LT min 3V* 10/10/21 162 No rt Pull Other Vital Signs Date Time Vital Sign Value Performing Clinician Facility 10-15-2024 16:11-0500 Body mass index (BMI) [Ratio] 38.94 kg/m2 APX Phone: [facility] 10-15-2024 16:11-0500 Body weight 106.14 kg Osei Helena DO Work Phone: [facility] 10-15-2024 16:11-0500 Diastolic blood pressure 64 mm[Hg] Osei Helena DO Work Phone: [facility] 10-15-2024 16:11-0500 Systolic blood pressure 118 mm[Hg] Osei Helena DO Work Phone: [facility] 10-02-2024 11:43-0500 Body mass index (BMI) [Ratio] 38.44 kg/m2 Osei Helena DO Work Phone: [facility] 10-02-2024 11:43-0500 Body weight 104.78 kg Osei Helena DO Work Phone: [facility] 10-02-2024 11:43-0500 Diastolic blood pressure 72 mm[Hg] Osei Helena DO Work Phone: [facility] 10-02-2024 11:43-0500 Systolic blood pressure 118 mm[Hg] Osei Helena DO Work Phone: [facility] 09-18-2024 10:52-0500 Body mass index (BMI) [Ratio] 38.74 kg/m2 Osei Helena DO Work Phone: [facility] 09-18-2024 10:52-0500 Body weight 105.6 kg Osei Helena DO Work Phone: [facility] 09-18-2024 10:52-0500 Diastolic blood pressure 68 mm[Hg] Osei Helena DO Work Phone: [facility] 09-18-2024 10:52-0500 Systolic blood pressure 118 mm[Hg] Osei Helena DO Work Phone: [facility] 09-03-2024 15:21-0500 Body mass index (BMI) [Ratio] 37.44 kg/m2 Osei Helena DO Work Phone: [facility] 09-03-2024 15:21-0500 Body weight 102.06 kg Osei Helena DO Work Phone: [facility] 09-03-2024 15:21-0500 Diastolic blood pressure 68 mm[Hg] Osei Helena DO Work Phone: [facility] 09-03-2024 15:21-0500 Systolic blood pressure 120 mm[Hg] Osei Helena DO Work Phone: [facility] 08-27-2024 13:08-0500 Body height 165.1 cm Camilla Hemmer PA Work Phone: [facility] 08-27-2024 13:08-0500 Body mass index (BMI) [Ratio] 38.11 kg/m2 Camilla Hemmer PA Work Phone: [facility] 08-27-2024 13:08-0500 Body weight 103.87 kg Camilla Hemmer PA Work Phone: [facility] 08-27-2024 13:08-0500 Diastolic blood pressure 72 mm[Hg] Camilla Hemmer PA Work Phone: [facility] 08-27-2024 13:08-0500 Heart rate 92 /min Camilla Hemmer PA Work Phone: [facility] 08-27-2024 13:08-0500 Respiratory rate 16 /min Camilla Hemmer PA Work Phone: [facility] 08-27-2024 13:08-0500 SaO2% (BldA) [Mass fraction] 98 % Camilla Hemmer PA Work Phone: [facility] 08-27-2024 13:08-0500 Systolic blood pressure 118 mm[Hg] Camilla Hemmer PA Work Phone: [facility] 08-13-2024 09:22-0500 Body height 165.1 cm Hammad Hatch MD Work Phone: [facility] 08-13-2024 09:22-0500 Body mass index (BMI) [Ratio] 36.91 kg/m2 Hammad Hatch MD Work Phone: [facility] 08-13-2024 09:22-0500 Body weight 100.61 kg Hammad Hatch MD Work Phone: [facility] 08-05-2024 09:05-0500 Body mass index (BMI) [Ratio] 36.44 kg/m2 Flori Louise PA Work Phone: [facility] 08-05-2024 09:05-0500 Body weight 99.34 kg Flori [place] PA Work Phone: [facility] 08-05-2024 09:05-0500 Diastolic blood pressure 68 mm[Hg] Flori Louise PA Work Phone: [facility] 08-05-2024 09:05-0500 Systolic blood pressure 110 mm[Hg] Flori [place] PA Work Phone: [facility] 07-03-2024 14:41-0400 Body mass index (BMI) [Ratio] 35.65 kg/m2 Flori [place] PA Work Phone: [facility] 07-03-2024 14:41-0400 Body weight 97.18 kg Flori Louise PA Work Phone: [facility] 07-03-2024 14:41-0400 Diastolic blood pressure 64 mm[Hg] Flori Louise PA Work Phone: [facility] 07-03-2024 14:41-0400 Systolic blood pressure 116 mm[Hg] Flori [place] PA Work Phone: [facility] 06-04-2024 15:53-0400 Body mass index (BMI) [Ratio] 35.36 kg/m2 Osei Helena DO Work Phone: [facility] 06-04-2024 15:53-0400 Body weight 96.39 kg Osei Helena DO Work Phone: [facility] 06-04-2024 15:53-0400 Diastolic blood pressure 70 mm[Hg] Osei Helena DO Work Phone: [facility] 06-04-2024 15:53-0400 Systolic blood pressure 126 mm[Hg] Osei Helena DO Work Phone: [facility] 05-23-2024 09:35-0400 Body mass index (BMI) [Ratio] 35.01 kg/m2 Nom Nurse [facility] 05-23-2024 09:35-0400 Body weight 95.44 kg [facility] Nurse [facility] 05-20-2024 09:37-0400 Body height 165.1 cm Camilla Hemmer PA Work Phone: [facility] 05-20-2024 09:37-0400 Body mass index (BMI) [Ratio] 34.98 kg/m2 Camilla Hemmer PA Work Phone: [facility] 05-20-2024 09:37-0400 Body weight 95.35 kg Camilla Hemmer PA Work Phone: [facility] 05-20-2024 09:37-0400 Diastolic blood pressure 76 mm[Hg] Camilla Hemmer PA Work Phone: [facility] 05-20-2024 09:37-0400 Heart rate 87 /min Camilla Hemmer PA Work Phone: [facility] 05-20-2024 09:37-0400 Respiratory rate 16 /min Camilla Hemmer PA Work Phone: [facility] 05-20-2024 09:37-0400 SaO2% (BldA) [Mass fraction] 98 % Camilla Hemmer PA Work Phone: [facility] 05-20-2024 09:37-0400 Systolic blood pressure 108 mm[Hg] Camilla Hemmer PA Work Phone: [facility] 11-30-2023 09:33-0500 Body height 165.1 cm Jyoti Noble PA-C Work Phone: [facility] 11-30-2023 09:33-0500 Body weight 92.99 kg Jyoti Noble PA-C Work Phone: [facility] 11-30-2023 09:33-0500 Diastolic blood pressure 79 mm[Hg] Jyoti Noble PA-C Work Phone: [facility] 11-30-2023 09:33-0500 Heart rate 84 /min Jyoti Dickey PA-C Work Phone: [facility] 11-30-2023 09:33-0500 SaO2% (BldA) [Mass fraction] 96 % Jyoti Dickey PA-C Work Phone: [facility] 11-30-2023 09:33-0500 Systolic blood pressure 118 mm[Hg] Jyoti Dickey PA-C Work Phone: [facility] 06-13-2023 12:36-0400 Body height 165.1 cm Ibis A Myra Work Phone: [facility] DO Work Phone: 06-13-2023 12:36-0400 Body mass index (BMI) [Ratio] 33.28 kg/m2 Ibis A Myra Work Phone: [facility] DO Work Phone: 06-13-2023 12:36-0400 Body surface area Derived from formula 1.98 m2 Ibis A Myra Work Phone: [facility] DO Work Phone: 06-13-2023 12:36-0400 Body weight 90.72 kg Ibis A Myra Work Phone: [facility] DO Work Phone: 06-13-2023 12:36-0400 Diastolic blood pressure 80 mm[Hg] Ibis A Myra Work Phone: [facility] DO Work Phone: 06-13-2023 12:36-0400 Heart rate 76 /min Ibis A Myra Work Phone: [facility] DO Work Phone: 06-13-2023 12:36-0400 Systolic blood pressure 116 mm[Hg] Ibis A Myra Work Phone: [facility] DO Work Phone: 06-08-2023 21:50-0400 Diastolic blood pressure 59 mm[Hg] BROADCAST SYSTEMS ENGINEER-C Ibis Myra Work Phone: [facility] 06-08-2023 21:50-0400 Heart rate 82 /min BROADCAST SYSTEMS ENGINEER-C Ibis Myra Work Phone: [facility] 06-08-2023 21:50-0400 Respiratory rate 18 /min BROADCAST SYSTEMS ENGINEER-C Ibis Myra Work Phone: [facility] 06-08-2023 21:50-0400 SaO2% (BldA) [Mass fraction] 99 % BROADCAST SYSTEMS ENGINEER-C Ibis Myra Work Phone: [facility] 06-08-2023 21:50-0400 Systolic blood pressure 115 mm[Hg] BROADCAST SYSTEMS ENGINEER-C Ibis Myra Work Phone: [facility] 06-08-2023 16:35-0400 Body height 165.1 cm BROADCAST SYSTEMS ENGINEER-C Ibis Myra Work Phone: [facility] 06-08-2023 16:35-0400 Body temperature 97.8 [degF] BROADCAST SYSTEMS ENGINEER-C Ibis Myra Work Phone: [facility] 06-08-2023 16:35-0400 Body weight 91.6 kg BROADCAST SYSTEMS ENGINEER-C Ibis Myra Work Phone: [facility] 12-28-2022 15:00-0400 Body weight 89.36 kg Irvin Hanna MD Work Phone: [facility] 12-28-2022 15:00-0400 Diastolic blood pressure 86 mm[Hg] Irvin Hanna MD Work Phone: [facility] 12-28-2022 15:00-0400 Heart rate 79 /min Irvin Hanna MD Work Phone: [facility] 12-28-2022 15:00-0400 Respiratory rate 16 /min Irvin Hanna MD Work Phone: [facility] 12-28-2022 15:00-0400 Systolic blood pressure 119 mm[Hg] Irvin Hanna MD Work Phone: [facility] 10-13-2022 09:35-0500 Body height 165.1 cm Ibis A Myra Work Phone: [facility] DO Work Phone: 10-13-2022 09:35-0500 Body mass index (BMI) [Ratio] 33.45 kg/m2 Ibis A Myra Work Phone: [facility] DO Work Phone: 10-13-2022 09:35-0500 Body surface area Derived from formula 1.98 m2 Ibis A Myra Work Phone: [facility] DO Work Phone: 10-13-2022 09:35-0500 Body weight 91.17 kg Ibis A Myra Work Phone: [facility] DO Work Phone: 10-13-2022 09:35-0500 Diastolic blood pressure 70 mm[Hg] Ibis A Myra Work Phone: [facility] DO Work Phone: 10-13-2022 09:35-0500 Heart rate 76 /min Ibis A Myra Work Phone: [facility] DO Work Phone: 10-13-2022 09:35-0500 Systolic blood pressure 102 mm[Hg] Ibis A Myra Work Phone: [facility] DO Work Phone: 09-11-2022 09:58-0500 Diastolic blood pressure 82 mm[Hg] Ibis A Myra Work Phone: [facility] DO Work Phone: 09-11-2022 09:58-0500 Diastolic blood pressure 80 mm[Hg] Ibis A Myra Work Phone: [facility] DO Work Phone: 09-11-2022 09:58-0500 Systolic blood pressure 112 mm[Hg] Ibis A Myra Work Phone: [facility] DO Work Phone: 09-11-2022 09:58-0500 Systolic blood pressure 108 mm[Hg] Ibis A Myra Work Phone: [facility] DO Work Phone: 09-11-2022 08:57-0500 Body height 165.1 cm Ibis A Myra Work Phone: [facility] DO Work Phone: 09-11-2022 08:57-0500 Body mass index (BMI) [Ratio] 32.95 kg/m2 Ibis A Myra Work Phone: [facility] DO Work Phone: 09-11-2022 08:57-0500 Body surface area Derived from formula 1.97 m2 Ibis A Myra Work Phone: [facility] DO Work Phone: 09-11-2022 08:57-0500 Body weight 89.81 kg Ibis A Myra Work Phone: [facility] DO Work Phone: 09-11-2022 08:57-0500 Diastolic blood pressure 68 mm[Hg] Ibis A Myra Work Phone: [facility] DO Work Phone: 09-11-2022 08:57-0500 Heart rate 74 /min Ibis A Myra Work Phone: [facility] DO Work Phone: 09-11-2022 08:57-0500 Systolic blood pressure 102 mm[Hg] Ibis A Myra Work Phone: [facility] DO Work Phone: 07-31-2022 10:14-0500 Body weight 89.81 kg Irvin Hanna MD Work Phone: [facility] 07-31-2022 10:14-0500 Diastolic blood pressure 71 mm[Hg] Irvin Hanna MD Work Phone: [facility] 07-31-2022 10:14-0500 Heart rate 92 /min Irvin Hanna MD Work Phone: [facility] 07-31-2022 10:14-0500 Systolic blood pressure 109 mm[Hg] Irvin Hanna MD Work Phone: [facility] 07-21-2022 07:27-0400 Body height 165.1 cm Ibis A Myra Work Phone: [facility] DO Work Phone: 07-21-2022 07:27-0400 Body mass index (BMI) [Ratio] 33.45 kg/m2 Ibis A Myra Work Phone: [facility] DO Work Phone: 07-21-2022 07:27-0400 Body surface area Derived from formula 1.98 m2 Ibis A Myra Work Phone: [facility] DO Work Phone: 07-21-2022 07:27-0400 Body weight 91.17 kg Ibis A Myra Work Phone: [facility] DO Work Phone: 07-21-2022 07:27-0400 Diastolic blood pressure 72 mm[Hg] Ibis A Myra Work Phone: [facility] DO Work Phone: 07-21-2022 07:27-0400 Heart rate 64 /min Ibis A Myra Work Phone: [facility] DO Work Phone: 07-21-2022 07:27-0400 Systolic blood pressure 106 mm[Hg] Ibis A Myra Work Phone: [facility] DO Work Phone: 07-10-2022 10:45-0400 Body height 165.1 cm Ibis A Myra Work Phone: [facility] DO Work Phone: 07-10-2022 10:45-0400 Body mass index (BMI) [Ratio] 32.95 kg/m2 Ibis A Myra Work Phone: [facility] DO Work Phone: 07-10-2022 10:45-0400 Body surface area Derived from formula 1.97 m2 Ibis A Myra Work Phone: [facility] DO Work Phone: 07-10-2022 10:45-0400 Body weight 89.81 kg Ibis A Myra Work Phone: [facility] DO Work Phone: 07-10-2022 10:45-0400 Diastolic blood pressure 70 mm[Hg] Ibis A Myra Work Phone: [facility] DO Work Phone: 07-10-2022 10:45-0400 Heart rate 76 /min Ibis A Myra Work Phone: [facility] DO Work Phone: 07-10-2022 10:45-0400 Systolic blood pressure 104 mm[Hg] Ibis A Myra Work Phone: [facility] DO Work Phone: 06-01-2022 11:36-0400 Body height 165.1 cm BROADCAST SYSTEMS ENGINEER-C Ibis Myra Work Phone: [facility] 06-01-2022 11:36-0400 Body temperature 100 [degF] BROADCAST SYSTEMS ENGINEER-C Ibis Myra Work Phone: [facility] 06-01-2022 11:36-0400 Body weight 88.4 kg BROADCAST SYSTEMS ENGINEER-C Ibis Myra Work Phone: [facility] 06-01-2022 11:36-0400 Diastolic blood pressure 68 mm[Hg] BROADCAST SYSTEMS ENGINEER-C Ibis Myra Work Phone: [facility] 06-01-2022 11:36-0400 Heart rate 99 /min BROADCAST SYSTEMS ENGINEER-C Ibis Myra Work Phone: [facility] 06-01-2022 11:36-0400 Respiratory rate 18 /min BROADCAST SYSTEMS ENGINEER-C Ibis Myra Work Phone: [facility] 06-01-2022 11:36-0400 SaO2% (BldA) [Mass fraction] 97 % BROADCAST SYSTEMS ENGINEER-C Ibis Myra Work Phone: [facility] 06-01-2022 11:36-0400 Systolic blood pressure 121 mm[Hg] BROADCAST SYSTEMS ENGINEER-C Ibis Myra Work Phone: [facility] 05-18-2022 09:42-0400 Body height 165.1 cm Ibis A Myra Work Phone: [facility] DO Work Phone: 05-18-2022 09:42-0400 Body mass index (BMI) [Ratio] 31.95 kg/m2 Ibis A Myra Work Phone: [facility] DO Work Phone: 05-18-2022 09:42-0400 Body surface area Derived from formula 1.94 m2 Ibis A Myra Work Phone: [facility] DO Work Phone: 05-18-2022 09:42-0400 Body weight 87.09 kg Ibis A Myra Work Phone: [facility] DO Work Phone: 05-18-2022 09:42-0400 Diastolic blood pressure 74 mm[Hg] Ibis A Myra Work Phone: [facility] DO Work Phone: 05-18-2022 09:42-0400 Heart rate 72 /min Ibis A Myra Work Phone: [facility] DO Work Phone: 05-18-2022 09:42-0400 Systolic blood pressure 102 mm[Hg] Ibis A Myra Work Phone: [facility] DO Work Phone: 03-23-2022 09:11-0400 Diastolic blood pressure 80 mm[Hg] Ibis A Myra Work Phone: [facility] DO Work Phone: 03-23-2022 09:11-0400 Systolic blood pressure 110 mm[Hg] Ibis A Myra Work Phone: [facility] DO Work Phone: 03-23-2022 09:06-0400 Body height 166.37 cm Ibis A Myra Work Phone: [facility] DO Work Phone: 03-23-2022 09:06-0400 Body mass index (BMI) [Ratio] 31.3 kg/m2 Ibis A Myra Work Phone: [facility] DO Work Phone: 03-23-2022 09:06-0400 Body surface area Derived from formula 1.95 m2 Ibis A Myra Work Phone: [facility] DO Work Phone: 03-23-2022 09:06-0400 Body weight 86.64 kg Ibis A Myra Work Phone: [facility] DO Work Phone: 03-23-2022 09:06-0400 Diastolic blood pressure 76 mm[Hg] Ibis A Myra Work Phone: [facility] DO Work Phone: 03-23-2022 09:06-0400 Heart rate 66 /min Ibis A Myra Work Phone: [facility] DO Work Phone: 03-23-2022 09:06-0400 Systolic blood pressure 118 mm[Hg] Ibis A Myra Work Phone: [facility] DO Work Phone: 01-25-2022 08:16-0400 Body height 165.1 cm Irvin Hanna MD Work Phone: [facility] 01-25-2022 08:16-0400 Body weight 86.36 kg Irvin Hanna MD Work Phone: [facility] 01-25-2022 08:16-0400 Diastolic blood pressure 83 mm[Hg] Irvin Hanna MD Work Phone: [facility] 01-25-2022 08:16-0400 Heart rate 71 /min Irvin Hanna MD Work Phone: [facility] 01-25-2022 08:16-0400 Systolic blood pressure 116 mm[Hg] Irvin Hanna MD Work Phone: [facility] 01-10-2022 12:45-0400 Body height 165.1 cm Ok Mckeon Other [facility] Other 01-10-2022 12:45-0400 Body mass index (BMI) [Ratio] 31.61 kg/m2 Ok Mckeon Other [facility] Other 01-10-2022 12:45-0400 Body temperature 97.8 [degF] Ok Mckeon Other [facility] Other 01-10-2022 12:45-0400 Body weight 86.18 kg Ok Mckeon Other [facility] Other 01-10-2022 12:45-0400 Diastolic blood pressure 80 mm[Hg] Ok Mckeon Other [facility] Other 01-10-2022 12:45-0400 SaO2% (BldA) [Mass fraction] 96 % Ok Mckeon Other [facility] Other 01-10-2022 12:45-0400 Systolic blood pressure 120 mm[Hg] Ok Christyrer Other [facility] Other 10-10-2021 15:50-0500 Body height 165.1 cm Christina Pearce Other [facility] Other 10-10-2021 15:50-0500 Body mass index (BMI) [Ratio] 31.61 kg/m2 Christina Pearce Other [facility] Other 10-10-2021 15:50-0500 Body temperature 97 [degF] Christina Pearce Other [facility] Other 10-10-2021 15:50-0500 Body weight 86.18 kg Christina Pearce Other [facility] Other 10-10-2021 15:50-0500 Diastolic blood pressure 76 mm[Hg] Christina Lambmond Other [facility] Other 10-10-2021 15:50-0500 Respiratory rate 18 /min Christina Pearce Other [facility] Other 10-10-2021 15:50-0500 SaO2% (BldA) [Mass fraction] 99 % Christina Pearce Other [facility] Other 10-10-2021 15:50-0500 Systolic blood pressure 123 mm[Hg] Christina Portia Other [facility] Other Encounters Encounter Date Encounter Type Care Provider Facility Start: 10-30-2024 End: 10-30-2024 Clinisync Result Encounter Generic External Data Provider [facility] External Department Unsolicited Start: 10-30-2024 End: 10-30-2024 Clinisync Result Encounter Generic External Data Provider [facility] External Department Unsolicited Start: 10-29-2024 End: 10-29-2024 Bamboo flowsheet Osei Helena DO Work Phone: [facility] Start: 10-29-2024 End: 10-29-2024 Bamboo flowsheet Osei Helena DO Work Phone: [facility] Start: 10-27-2024 End: 10-27-2024 Clinisync Result Encounter [...] Only Roshni Jo RN [facility] Comment on above: Dichorionic diamniot ic twin in third trimester (Primary Dx) Start: 10-16-2024 End: 10-16-2024 ambulatory [facility] Start: 10-15-2024 End: 10-15-2024 flow sheet [...] Result Encounter Osei Helena DO Work Phone: [facility] External Department Unsolicited Start: 09-25-2024 End: 09-26-2024 Telephone encounter Osei Helena DO Work Phone: [facility] Start: 09-19-2024 End: 09-26-2024 Orders Only Chrissie Willis [facility] Comment on above: Dichorionic diamniot ic [...] Start: 09-02-2024 End: 09-02-2024 ambulatory JYOTI DICKEY Facility:[facility] Comment on above: POTS (postural ortho [...] encounter Marycarmen Kennedy RN [facility] Start: 08-27-2024 End: 08-27-2024 Bamboo flowsheet [...] Only Sammi Green RN [facility] Comment on above: Dichorionic diamniot ic twin in second trimester (Primary Dx); POTS (postural orthostatic tachycardia syndrome); Asthma during ; 20 weeks gestation of Start: 08-13-2024 End: 08-13-2024 Office outpatient new 45 minutes Muna Lenz MD Work Phone: [facility] Comment on above: Dichorionic diamniot ic twin in second trimester (Primary Dx); POTS (postural orthostatic tachycardia syndrome); Asthma during ; 20 weeks gestation of Start: 08-13-2024 End: 08-13-2024 ambulatory [facility] Start: 08-11-2024 End: 08-13-2024 Clinisync Result [...] Start: 07-24-2024 End: 07-24-2024 ambulatory Celeste Watson Facility:[facility] Start: 07-07-2024 End: 07-07-2024 Chart abstracting Hammad Hatch MD Work Phone: [facility] Start: 07-03-2024 End: 07-03-2024 flow sheet [...] Start: 07-02-2024 End: 07-02-2024 ambulatory Joie Seaman JOB INTERVIEWER.ASSISTANT BUYER Work Phone: Neurology Comment on above: POTS (postural ortho static tachycardia syndrome) (Primary Dx); Near syncope Start: 07-02-2024 End: 07-02-2024 Telemedicine consultation with patient Joie Seaman JOB INTERVIEWER.ASSISTANT BUYER Work Phone: Neurology Start: 06-10-2024 End: 06-11-2024 ambulatory Jyoti Dickey PA-C Work Phone: Neurology Comment on above: Start: 06-10-2024 End: 06-23-2024 Telephone encounter Jb Mnadujano MD Work Phone: [facility] Start: [...] Start: 05-20-2024 End: 05-20-2024 Bamboo flowsheet Camilla Latesha Alek PA Work Phone: [facility] Start: 05-20-2024 End: 05-20-2024 Bamboo flowsheet Camilla Charlton Alek PA Work Phone: [facility] Start: 05-20-2024 End: 05-20-2024 Office outpatient visit 15 minutes Camilla Latesha Alek PA Work Phone: [facility] Comment on above: Pain of left sacroil iac joint (Primary Dx) Start: 05-20-2024 End: 05-20-2024 ambulatory CAMILLA Latesha ALEK Not Available Start: 04-12-2024 End: 04-12-2024 ambulatory Celeste Watson Facility[facility] Start: 04-12-2024 End: 04-12-2024 Patient encounter procedure Celeste Shirley [facility] Start: 03-25-2024 Patient encounter status Camilla Segurarosita TOLBERT Work Phone: [facility] Start: 03-25-2024 End: 03-25-2024 ambulatory RUGEN Latesha NAZIA Not Available Start: 03-20-2024 End: 03-20-2024 ambulatory Jyoti Gallowayur PA-C Work Phone: Neurology Comment on above: POTS (postural ortho static tachycardia syndrome) (Primary Dx) Start: 03-20-2024 End: 03-20-2024 Telemedicine consultation with patient Jyoti Noble PA-C Work Phone: Neurology Start: 03-14-2024 End: 03-14-2024 ambulatory Celeste Watson Facility:[facility] Start: 03-14-2024 End: 03-14-2024 Patient encounter procedure Celeste Watson [facility] Start: 02-26-2024 End: 02-26-2024 ambulatory RUGEN M NAZIA Not Available Start: 01-22-2024 ambulatory TANK TESTER Krista L Mae Facil ity:[facility] Start: 01-01-2024 End: 01-01-2024 ambulatory CELESTE WATSON Not Available Start: 12-21-2023 End: 12-21-2023 ambulatory OSEI MALIK Not Available Start: 12-11-2023 End: 12-11-2023 ambulatory TANK TESTER Krista L Mae Facility:[facility] Start: 12-11-2023 End: 12-11-2023 ambulatory CELESTE WATSON Not Available Start: 11-30-2023 End: 11-30-2023 ambulatory AURORA SANTIAGO Facility:[facility] Start: 11-30-2023 End: 11-30-2023 Patient encounter procedure Jyoti Dickey PA-C Work Phone: Neurology Comment on above: POTS (postural ortho static tachycardia syndrome) (Primary Dx) Start: 11-12-2023 End: 11-12-2023 Patient encounter procedure Autonomic 2 Neur Main [facility] Start: 11-12-2023 End: 11-12-2023 ambulatory AURORA SANTIAGO Neurology Comment on above: Procedure Start: 10-10-2023 End: 10-10-2023 ambulatory AURORA SANTIAGO Facility:[facility] Start: 07-24-2023 End: 07-24-2023 ambulatory Jocelin FELIX Facility:[facility] Start: 07-20-2023 Telephone encounter Arin Tinajero RN [facility] Comment on above: Referral Follow-up Start: 07-10-2023 End: 07-10-2023 ambulatory JOSE ARMANDO GREY Facility:[facility] Start: 07-10-2023 End: 07-10-2023 Office outpatient new 30 minutes Jose Armando Grey DO Work Phone: [facility] Comment on above: Chronic pain of righ t knee (Primary Dx); Tendinopathy of gluteal region Start: 07-06-2023 Orders Only Jose Armando Grey DO Work Phone: Orthopaedics Comment on above: Right knee pain, uns pecified chronicity (Primary Dx) Start: 07-05-2023 End: 07-05-2023 ambulatory BROADCAST SYSTEMS ENGINEER-C Ibis Maggy Myra Work Phone: [facility] Work Phone: Start: 07-05-2023 End: 07-05-2023 Patient encounter procedure BROADCAST SYSTEMS ENGINEER-C Ibis Arenasncer Work Phone: [facility]-Flu Vaccine Start: 06-13-2023 Office outpatient vi sit 15 minutes Ibis A Myra Work Phone: -[facility] 600 DO Work Phone: Start: 06-13-2023 ambulatory Tabatha [place] Facility:[id number] Start: 06-08-2023 End: 06-08-2023 Emergency department patient visit BROADCAST SYSTEMS ENGINEER-C Ibis Arenasncer Work Phone: [facility]-Emergency Room Work Phone: Start: 04-25-2023 End: 04-25-2023 ambulatory BROADCAST SYSTEMS ENGINEER-C Ibis Maggy Myra Work Phone: [facility] Work Phone: Start: 04-25-2023 End: 04-25-2023 Departed Referred BROADCAST SYSTEMS ENGINEER-C Ibis Myra Work Phone: [facility] [address] Work Phone: Start: 03-14-2023 ambulatory CHAN MUÑIZ Fa cility:[facility] Start: 01-18-2023 End: 01-18-2023 ambulatory BROADCAST SYSTEMS ENGINEER-C Ibis Maggy Myra Work Phone: [facility] Work Phone: Start: 01-18-2023 End: 01-18-2023 Departed Referred BROADCAST SYSTEMS ENGINEER-C Ibis Myra Work Phone: [facility] [address] Work Phone: Start: 12-28-2022 End: 12-28-2022 Patient encounter procedure Irvin Hanna MD Work Phone: Rheumatology Comment on above: Pain and swelling of knee, right (Primary Dx); Joint stiffness Start: 10-31-2022 Chart Update Ibis Ellis Spen cer Work Phone: -[facility] DO Work Phone: Start: 10-16-[address] Melodie Alfonso ty: Start: 10-13-2022 Current tobacco non- user cad cap copd pv dm Ibis A Myra Work Phone: -[facility] DO Work Phone: Start: 10-13-[address] Annalee Pierre acility: Start: 09-11-2022 Office outpatient vi sit 15 minutes Ibis A Myra Work Phone: [facility] DO Work Phone: Start: 09-11-2022 Patient encounter procedure Ibis Ellis Myra Work Phone: -[facility] DO Work Phone: Start: 09-11-[address] Melodie Alfonso ty: Start: 09-07-2022 Telephone encounter Ibis Ellis Myra Work Phone: [facility] DO Work Phone: Start: 08-27-[address] Annalee Pierre acility: Start: 08-01-2022 AUDIT Ibis Ellis Spen cer Work Phone: [facility] DO Work Phone: Start: 07-31-2022 EVENT EZEKIEL, Provider : HERIBERTO SERRAON CORRECTION OFFICER [place] 1,[id number], Status: Pen, Time: 11:00 AM Ibis Rhonda Myra Work Phone: [facility] DO Work Phone: Start: 07-31-[address] Annalee Pierre acility: Start: 07-31-2022 End: 07-31-2022 Patient encounter procedure Irvin Hanna MD Work Phone: Rheumatology Comment on above: Pain and swelling of knee, right (Primary Dx); Joint stiffness; Inflammatory arthritis Start: 07-26-2022 ambulatory IBIS RENTERIA Facilit y:[facility] Start: 07-21-2022 Current tobacco non- user cad cap copd pv dm Ibis A Myra Work Phone: [facility] DO Work Phone: Start: 07-21-[address] Annalee Maza F acility: Start: 07-10-2022 Office outpatient vi sit 25 minutes Ibis A Myra Work Phone: [facility] DO Work Phone: Start: 07-10-2022 Patient encounter procedure Ibisniharika Limer Work Phone: [facility] DO Work Phone: Start: 07-10-[address] Melodie Alfonso ty: Start: 06-15-2022 Telephone encounter Ibis A Myra Work Phone: [facility] DO Work Phone: Start: 06-12-2022 End: 06-12-[address] 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 Ibis Limer Work Phone: [facility]-Emergency Room Start: 05-18-2022 Office outpatient vi sit 25 minutes Ibis A Myra Work Phone: [facility] DO Work Phone: Start: 05-18-2022 Patient encounter procedure Ibis A Myra Work Phone: [facility] DO Work Phone: Start: 05-08-2022 End: 05-08-2022 Patient encounter procedure 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 ENGINEER-C Ibis Myra Work Phone: [facility]-Respiratory Therapy Start: 05-03-2022 Result Review Ibis A Spen cer Work Phone: [facility] DO Work Phone: Start: 05-03-2022 SURGNONUH, Provider: María Elena Freire, Status: Pen, Time: 10:00 AM Ibis Rhonda Myra Work Phone: [facility] DO Work Phone: Start: 05-03-2022 End: 05-03-2022 Patient encounter procedure BROADCAST SYSTEMS ENGINEER-C Ibis Myra Work Phone: [facility] Start: 03-28-2022 EVENT EZEKIEL, Provider : HERIBERTO SINGH [employer] [place] 1,[id number], Status: Pen, Time: 8:00 AM Ibis A Myra Work [facility]: [facility] [facility] DO Work Phone: Start: 03-28-2022 Patient encounter procedure Ibis A Myra Work Phone: [facility] 250 DO Work Phone: Start: 03-26-2022 Chart Update Ibis A Spen cer Work Phone: [facility] 250 DO Work Phone: Start: 03-24-2022 End: 03-24-2022 Patient encounter procedure BROADCAST SYSTEMS ENGINEER-C Ibis Arenasncer Work Phone: [facility] [place] Start: 03-23-2022 Office consultation new/estab patient 60 min Ibis Arenasncer Work Phone: [facility] 250 DO Work Phone: Start: 03-23-2022 Office outpatient ne w 45 minutes Ibis Arenasncer Work Phone: [facility] Work Phone: Start: 02-02-2022 Telephone encounter Irvin shannon MD Work Phone: Rheumatology Comment on above: Orders Start: 01-25-2022 End: 01-25-2022 Patient encounter procedure Irvin Hanna MD Work Phone: Rheumatology Comment on above: Pain and swelling of knee, right (Primary Dx); Joint stiffness Start: 01-10-2022 End: 01-10-2022 ambulatory Ok Mckeon Other [employer] Other Start: 01-10-2022 Office outpatient ne w 45 minutes Ok Mckeon [facility] Vascular Surgery Start: 10-10-2021 End: 10-10-2021 ambulatory Christina Pearce Other [employer] Other Start: 10-10-2021 Office outpatient vi sit 15 minutes Christina Pearce [facility] [place] Procedures Date Procedure Procedure Detail Performing Clinician Start: 10-30-2024 US OB BPP W NON-STRESS Generic External Data Provider Start: 10-27-2024 ECG 12-LEAD Osei Fazi o DO Work Phone: Start: 10-27-2024 Ct angiography chest w/contrast/noncontrast Osei Helena DO Work Phone: Start: 10-27-2024 [facility] UA (CLEAN/CATCH) RESERVATIONS SPECIALIST/MICRO IF IND. Osei Helena DO Work Phone: Start: 10-23-2024 US OB BPP W NON-STRESS Generic External Data Provider Start: 10-15-2024 Urnls dip stick/tabl et rgnt non-auto w/o micrscp Turbulenzo DO Work Phone: Start: 10-02-2024 Urnls dip stick/tabl et rgnt non-auto w/o micrscp Turbulenzo DO Work Phone: Start: 09-25-2024 [facility] UA (CLEAN/CATCH) RESERVATIONS SPECIALIST/MICRO IF IND. Turbulenzo DO Work Phone: Start: 09-18-2024 Urnls dip stick/tabl et rgnt non-auto w/o micrscp Turbulenzo DO Work Phone: Start: 09-03-2024 Urnls dip stick/tabl et rgnt non-auto w/o micrscp Turbulenzo DO Work Phone: Start: 09-01-2024 GLUCOSE TOLERANCE 3 HOUR [employer] DO Work Phone: Start: 08-20-2024 ALL CBC WITH AUTO DIFF [employer] DO Work Phone: Start: 08-13-2024 Us preg uterus after 1st trimest 1/ gestation [employer] 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 Start: 07-03-2024 Urnls dip stick/tabl et rgnt [...] Osei Helena DO Work Phone: Start: 07-10-2023 [facility] Pr ovider Historical Start: 06-08-2023 Plain chest X-ray BR[employer] ENGINEER-C Ibis Myra Work Phone: Start: 01-18-2023 Plain chest X-ray BR[employer]CAST SYSTEMS ENGINEER-C Ibis Myra Work Phone: Start: 05-03-2022 Plain chest X-ray [employer] SYSTEMS ENGINEER-C Ibis Arenasncer Work Phone: Start: 08-05-2021 Arthroscopy of knee Lorna trangverenice Michelleradha Arthroscopy of knee Ibis A Myra Work Phone: Cryotherapy of warts Rajeev Watson Extraction of wisdom tooth Ibis A Myra Work Phone: SARS-CoV-2, Influenz a & RSV (PCR) [employer] ENGINEER-C Ibis Myra Work Phone: Tonsillectomy and adenoidectomy Ibis Limer Work Phone: Tonsillectomy and adenoidectomy Celeste Watson NEGATED: Highlighted row has not occurred! Total colonoscopy Ibis A Myra Work Phone: Plan of Treatment Date Care Activity Detail Author Start: 03-25-2034 DTaP,Tdap and Td Vac cines (8 - Td or Tdap) DTaP,Tdap and Td Vaccines (8 - Td or Tdap) [facility] Start: 03-25-2034 Urine microalbumin profile DTaP,Tdap,Td Vaccine (8 - Td or Tdap) [facility] Start: 08-05-2027 Screening for malign ant neoplasm of cervix Pap Smear [facility] Start: 10-17-2025 End: 10-17-2025 US MFM with or without consult US MFM with or without consult Imaging Routine Dichorionic diamniotic twin in third trimester Expected: 10/17/2025 (Approximate), Expires: 10/17/2025 [employer] Work Phone: Comment on above: Expected: 10/17/2025 (Approximate), Expires: 10/17/2025 Start: 09-19-2025 End: 09-19-2025 US MFM with or without consult US MFM with or without consult Imaging Routine Dichorionic diamniotic twin in second trimester Expected: 09/19/2025 (Approximate), Expires: 09/19/2025 [employer] Work Phone: Comment on above: Expected: 09/19/2025 (Approximate), Expires: 09/19/2025 Start: 08-15-2025 End: 08-15-2025 US MFM with or without consult US MFM with or without consult Imaging Routine Dichorionic diamniotic twin in second trimester POTS (postural orthostatic tachycardia syndrome) Asthma during 20 weeks gestation of Expected: 08/15/2025 (Approximate), Expires: 08/15/2025 [employer] Work Phone: Comment on above: Expected: 08/15/2025 (Approximate), Expires: 08/15/2025 Start: 08-13-2025 Adult BMI Screening Adult BMI Screen ing [facility] Start: 08-13-2025 Tobacco Screening Tobacco Screening [facility] Start: 11-12-2024 End: 11-12-2024 Patient encounter procedure 11/12/2024 9:30 AM EST Appointment [facility] - MFM US Imaging [address] [place] [phone] [facility] US Imaging Start: 11-10-2024 End: 11-10-2024 Patient encounter procedure 11/10/2024 9:00 AM EST Routine [facility] [address] [place] [phone] Osei Malik, DO [address] [place] [address] [facility] Start: 10-29-2024 End: 10-29-2024 Patient encounter procedure [facility] Comment on above: Arrived Start: 10-16-2024 End: 10-16-2024 Patient encounter procedure 10/16/2024 1:00 PM EST Appointment [facility] US Imaging [address] [place] [phone] [facility] US Imaging Start: 10-15-2024 End: [...] Routine [facility] [address] [place] [phone] Osei Malik, DO [address] [place] [address] [facility] Start: 09-23-2024 End: 09-23-2024 Patient encounter procedure 09/23/2024 1:00 PM EST Appointment [facility] - Ultrasound [address] [place] [phone] [facility] - Ultrasound Start: 09-19-2024 End: 09-19-2024 Patient encounter procedure 09/19/2024 9:30 AM EST Appointment [facility] US Imaging [address] [place] [address] [facility] US Imaging Start: 09-18-2024 End: 09-18-2024 Patient encounter procedure [facility] Comment on above: Arrived Start: 09-03-2024 End: 09-03-2024 Patient encounter procedure [facility] Comment on above: Arrived Start: 09-02-2024 End: 09-02-2024 ambulatory 09/02/2024 12:[address] [facility] [address] [place] [address] Jyoti Dickey PA-C [address] [place] [address] F/u Neurology Comment on above: F/u Start: 09-02-2024 End: 09-02-2024 ambulatory 09/02/2024 10:[address] [facility] [address] [place] [address] Jyoti Dickey PA-C [address] [place] [address] F/u Neurology Comment on above: F/u Start: 08-27-2024 End: 08-27-2024 Patient encounter procedure 08/27/2024 1:00 PM EST Office Visit [facility] [address] [facility] [address] [place] [address] Camilla Garcia PA [address] [place] [address] Arrived [facility] Comment on above: Arrived Start: 08-13-2024 End: 08-13-2024 Patient encounter procedure [facility] US Imaging Start: 08-05-2024 End: 02-02-2025 Alpha fetoprotein, maternal Alpha fetoprotein, maternal Lab Routine Second trimester Expected: 08/05/2024 (Approximate), Expires: 02/02/2025 [facility] Comment on above: Expected: 08/05/2024 (Approximate), Expires: 02/02/2025 Start: 08-05-2024 End: 08-05-2024 Patient encounter procedure 08/05/2024 8:50 AM EST Routine [facility] [address] [facility] [place] [phone] Osei Malik DO [address] [facility] [place] [address] [facility] Start: 07-03-2024 End: 07-03-2024 Patient encounter procedure [facility] Comment on above: Arrived Start: 06-04-2024 End: 06-04-2024 Patient encounter procedure [facility] Comment on above: Arrived Start: 05-25-2024 Covid-19 Vaccine ( season) Covid-19 Vaccine ( season) [facility] Start: 05-25-2024 Covid-19 Vaccine ( season) Covid-19 Vaccine ( season) [facility] Start: 05-25-[address] [facility] Start: 05-23-2024 End: 05-23-2025 ABO/Rh ABO/Rh [...] AM EDT Initial [facility] [address] [place] [address] [facility] Start: 05-23-2024 End: 05-23-2024 Professional / ancillary services management 05/23/2024 8:30 AM EDT Ancillary Procedure [facility] [address] [place] [address] [facility] Start: 05-20-2024 End: 05-20-2024 Patient encounter procedure 05/20/2024 9:30 AM EDT Office Visit [facility] [address] [facility] [address] [place] [address] Camilla Garcia, PA [address] [facility] [address] [place] [address] Arrived [facility] Comment on above: Arrived Start: 04-20-2024 Urine microalbumin profile DTaP,Tdap,Td Vaccine (7 - Td or Tdap) [facility] Start: 09-24-2023 Depression Assessment Depression Ass essment [facility] Start: 05-25-2023 Covid-19 Vaccine () Covid-19 Vaccine () [facility] Start: 05-25-[address] [facility] Start: 04-25-2023 [facility] Start: 04-06-2023 FUV, Provider: Annalee Maza, Status: Pen, Time: 2:40 PM FUV, Provider: Annalee Maza, Status: Pen, Time: 2:40 PM -[facility] 320 DO Work Phone: Start: 2022 PAP TESTING PAP TESTING [facility] Start: 2022 Screening for malign ant neoplasm of cervix [facility] Start: 10-13-2022 FUV, Provider: Annalee Maza, Status: Pen, Time: 9:20 AM FUV, Provider: Annalee Maza, Status: Pen, Time: 9:20 AM -[facility] 320 DO Work Phone: Start: 09-24-2022 DEPRESSION ASSESSMENT DEPRESSION ASS ESSMENT [facility] Start: 09-11-2022 FUV, Provider: Melodie Alcaraz, Status: Pen, Time: 9:30 AM FUV, Provider: Melodie Alcaraz, Status: Pen, Time: 9:30 AM -[facility] 250 DO Work Phone: Start: 09-11-2022 EVENT EZEKIEL, Provider : HERIBERTO SINGH [employer] 1,[id number], Status: Pen, Time: 8:30 AM EVENT EZEKIEL, Provider: HERIBERTO SINGH [employer] 1,[id number], Status: Pen, Time: 8:30 AM [facility] 320 DO Work Phone: Start: 08-14-2022 EVENT EZEKIEL, Provider : HERIBERTO LEMON [employer] 1,[id number], Status: Pen, Time: 10:00 AM EVENT EZEKIEL, Provider: HERIBERTO LEMON [employer] 1,[id number], Status: Pen, Time: 10:00 AM -[facility] 250 DO Work Phone: Start: 07-21-2022 NPVRFRL, Provider: Annalee Maza, Status: Pen, Time: 7:20 AM NPVRFRL, Provider: Annalee Maza, Status: Pen, Time: 7:20 AM -[facility] 250 DO Work Phone: Start: 10-17-2022 FUV, Provider: Melodie Alcaraz, Status: Pen, Time: 10:45 AM FUV, Provider: Melodie Alcaraz, Status: Pen, Time: 10:45 AM [facility] 250 DO Work Phone: Start: 06-05-2022 [facility], Provider: Annalee Maza, Status: Pen, Time: 10:00 AM [facility], Provider: Annalee Maza, Status: Pen, Time: 10:00 AM -[facility] 250 DO Work Phone: Start: 05-25-[address] [facility] Start: 05-18-2022 FUV, Provider: Melodie Alcaraz, Status: Pen, Time: 9:15 AM FUV, Provider: Melodie Alcaraz, Status: Pen, Time: 9:15 AM [facility] 250 DO Work Phone: Start: 05-08-2022 End: 05-08-2022 [facility] Start: 05-03-2022 SURGNONUH, Provider: María Elena Freire, Status: Pen, Time: 10:00 AM SURGNONUH, Provider: María Elena Freire, Status: Pen, Time: 10:00 AM -[facility] 250 DO Work Phone: Start: 03-28-2022 EVENT EZEKIEL, Provider : HERIBERTO SINGH [employer] 1,[id number], Status: Pen, Time: 8:00 AM EVENT EZEKIEL, Provider: HERIBERTO SINGH [employer] 1,[id number], Status: Pen, Time: 8:00 AM -[facility] 250 DO Work Phone: Start: 01-25-2022 End: 03-27-2022 Chronic hepatitis differentiation between hepatitis B and C virus panel - Serum or Plasma [facility] Work Phone: Comment on above: Expected: 01/25/2022 , Expires: 03/27/2022 Start: 01-25-2022 End: 03-27-2022 Complement C1 esterase inhibitor [Mass/volume] in Serum or Plasma [facility] Work Phone: Comment on above: Expected: 01/25/2022 , Expires: 03/27/2022 Start: 01-25-2022 End: 03-27-2022 Complement C2 [Mass/volume] in Serum or Plasma [facility] Work Phone: Comment on above: Expected: 01/25/2022 , Expires: 03/27/2022 Start: 09-24-2021 DEPRESSION ASSESSMENT DEPRESSION ASS ESSMENT [facility] Start: 06-16-2021 COVID-19 VACCINE (3 - Booster for Pfizer series) COVID-19 VACCINE (3 - Booster for Pfizer series) [facility] Start: 03-11-2021 COVID-19 VACCINE (3 - Booster for Pfizer series) COVID-19 VACCINE (3 - Booster for Pfizer series) [facility] Start: 02-11-2021 COVID-19 VACCINE (3 - Pfizer risk series) COVID-19 VACCINE (3 - Pfizer risk series) [facility] Start: 2020 SHINGRIX VACCINE (1 of 2) VANG GRIX VACCINE (1 of 2) [facility] Start: 2020 Urine microalbumin profile [facility] Start: 12-03-2019 Adult BMI Follow Up Plan Adult BMI Follow Up Plan [facility] Start: 12-03-2019 Adult BMI Screening Adult BMI Screen ing [facility] Start: 12-03-2019 Anxiety Screening Anxiety Screening [facility] Start: 12-03-2019 CHLAMYDIA SCREENING (1824) CHLAMYDIA SCREENING (18) [facility] Start: 12-03-2019 Depression Screening Depression Scre ening [facility] Start: 12-03-2019 GC (GONORRHEA) SCREE NINI (18-24) GC (GONORRHEA) SCREENING (18-) [facility] Start: 12-03-2019 HEPATITIS C SCREENING HEPATITIS C SC REENING [facility] Start: 12-03-2019 HIV SCREENING HIV SCREENING [facility] Start: 12-03-2019 HIV screening HIV Screening [facility] Start: 12-03-2019 Screening for Chlamy taylor trachomatis Chlamydia Screening (18-) [facility] Start: 2017 Meningococcal B Vacc ine: Consider Based On Risk (1 of 2 - Patient Seeks Protection) Meningococcal B Vaccine: Consider Based On Risk (1 of 2 - Patient Seeks Protection) [facility] Start: 12-03-2015 PEDS TO ADULT TRANSI TION ANNUAL ASSESSMENT PEDS TO ADULT TRANSITION ANNUAL ASSESSMENT [facility] Start: 2013 Adult depression screening assessment DEPRESSION SCREENING [facility] Start: 2013 PEDS TO ADULT TRANSI TION INITIAL DISCUSSION PEDS TO ADULT TRANSITION INITIAL DISCUSSION [facility] Start: 2013 Tobacco Screening Tobacco Screening [facility] Start: 2012 HPV VACCINE (1 - 2-d ose series) HPV VACCINE (1 - 2-dose series) [facility] Start: 12-03-2011 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 (1 of 2 - Risk Bexsero 2-dose series) MENINGOCOCCAL B: Consider based on risk (1 of 2 - Risk Bexsero 2-dose series) [facility] Start: 2010 HPV Vaccine (1 - 2-d ose series) HPV Vaccine (1 - 2-dose series) [facility] Start: 2010 HPV VACCINES (1 - 2- dose series) HPV VACCINES (1 - 2-dose series) [facility] Start: 2008 DTaP/Tdap/Td VACCINE S (1 - Tdap) DTaP/Tdap/Td VACCINES (1 - Tdap) [facility] Start: 12-03-2007 PNEUMOCOCCAL (1 - PCV) PNEUMOCOCCAL (1 - PCV) [facility] Start: 2002 MMR VACCINES (1 of 1 - Standard series) MMR VACCINES (1 of 1 - Standard series) [facility] Start: 2002 VARICELLA VACCINES ( 1 of 2 - 2-dose childhood series) VARICELLA VACCINES (1 of 2 - 2-dose childhood series) [facility] Start: 06-04-2002 COVID-19 Vaccine (#1) COVID-19 Vacci ne (#1) [facility] Start: 2001 HEPATITIS B (1 of 3 - 3-dose series) HEPATITIS B (1 of 3 - 3-dose series) [facility] Start: 2001 Hepatitis B Vaccine (1 of 3 - 3-dose series) Hepatitis B Vaccine (1 of 3 - 3-dose series) [facility] Start: 2001 HEPATITIS B VACCINES (1 of 3 - 3-dose series) HEPATITIS B VACCINES (1 of 3 - 3-dose series) [facility] Start: 2001 Screening for Chlamy taylor trachomatis Chlamydia Screening [facility] Bacteria identified in Urine by Culture Urine culture Microbiology Routine Missed menses Ordered: 05/23/2024 [facility] Comment on above: Ordered: 05/23/2024 CBC W Auto Different ial panel - Blood CBC and differential Lab Routine Missed menses Ordered: 05/23/2024 [facility] Comment on above: Ordered: 05/23/2024 CHLAMYDIA TRACHOMATI S (GENITO/STI) CHLAMYDIA TRACHOMATIS (GENITO/STI) Lab Routine STD exposure Ordered: 08/05/2024 [facility] Comment on above: Ordered: 08/05/2024 Cytology Cervical or vaginal smear or scraping study Pap Smear Pathology and Cytology Routine Well woman exam with routine gynecological exam Ordered: 08/05/2024 [facility] Comment on above: Ordered: 08/05/2024 Hemoglobin A1c/Hemoglobin.total in Blood Hemoglobin A1c Lab Routine Missed menses Ordered: 05/23/2024 [facility] Comment on above: Ordered: 05/23/2024 Hepatitis B virus ramirez rface Ag [Presence] in Serum or Plasma by Immunoassay Hepatitis B surface antigen Lab Routine Missed menses Ordered: 05/23/2024 [facility] Comment on above: Ordered: 05/23/2024 Hepatitis C virus Ab [Presence] in Serum or Plasma by Immunoassay Hepatitis C antibody Lab Routine Missed menses Ordered: 05/23/2024 [facility] Comment on above: Ordered: 05/23/2024 HIV-1/HIV-2 antigen/antibody combination immunoassay HIV-1 and HIV-2 antibodies Lab Routine Missed menses Ordered: 05/23/2024 [facility] Comment on above: Ordered: 05/23/2024 Neisseria gonorrhoea e DNA [Presence] in Unspecified specimen by PERFECTO with probe detection Neisseria gonorrhea DNA probe, direct Lab Routine STD exposure Ordered: 08/05/2024 [facility] Comment on above: Ordered: 08/05/2024 Patient Education [facility] Work Phone: Patient referral [facility] Work Phone: Reagin Ab [Presence] in Serum by RPR RPR Lab Routine Missed menses Ordered: 05/23/2024 [facility] Comment on above: Ordered: 05/23/2024 Rubella antibody, IgG Rubella an tibody, IgG Lab Routine Missed menses Ordered: 05/23/2024 [facility] Comment on above: Ordered: 05/23/2024 SURESWAB(R) ADVANCED VAGINITIS PLUS, TMA SURESWAB(R) ADVANCED VAGINITIS PLUS, TMA Pathology and Cytology Routine Vaginal discharge Ordered: 08/05/2024 [facility] Work Phone: Comment on above: Ordered: 08/05/2024 End: 08-04-2024 XR KNEE GENERAL 4V AP BOTH/PA BOTH/LAT/MERC RIGHT XR KNEE GENERAL 4V AP BOTH/PA BOTH/LAT/MERC RIGHT Radiology Routine Right knee pain, unspecified chronicity 1 Occurrences starting 07/06/2023 until 08/04/2024 [facility] Work Phone: Comment on above: 1 Occurrences starti ng 07/06/2023 until 08/04/2024 [facility] Immunizations Immunization Date Immunization Notes Care Provider Cheryl harden 07-24-2024 influenza, seasonal, injectable, preservative free Camilla TOLBERT Work Phone: [facility] Work Phone: 03-25-2024 tetanus toxoid, redu richar diphtheria toxoid, and acellular pertussis vaccine, adsorbed Camilla TOLBERT Work Phone: [facility] 07-05-2023 influenza virus vaccine, unspecified formulation Celeste Watson [facility] [place] 07-05-2023 influenza, injectabl e, quadrivalent, preservative free Camilla TOLBERT Work Phone: [facility] 01-14-2021 Pfizer-BioNTech COVID-19 Vacc 30 MCG/0.3ML Intramuscular Suspension Ibis Renteria Work Phone: [facility] Comment on above: Result Comment: 2023: TPVAL 12-24-2020 Pfizer-BioNTSiriusDecisions COVID-19 Vacc 30 MCG/0.3ML Intramuscular Suspension Ibis Arenasncer Work Phone: [facility] Comment on above: Result Comment: 2023: TPVAL 12-11-2017 meningococcal polysaccharide (groups A, C, Y and W-135) diphtheria toxoid conjugate vaccine (MCV4P) Christina Portia Other [employer] Other 12-11-2017 meningococcal ACWY vaccine, unspecified formulation Celeste Watson [facility] 11-06-2014 human papilloma viru s vaccine, quadrivalent Christina Portia Other [employer] Other 11-06-2014 HPV, unspecified formulation Ibis Arenasncer Work Phone: [facility] 250 DO Work Phone: 06-26-2014 HPV, unspecified formulation Celeste Watson [facility] 06-26-2014 human papilloma viru s vaccine, quadrivalent Christina Portia Other [employer] Other 04-20-2014 human papilloma viru s vaccine, quadrivalent Christina Portia Other [employer] Other 04-20-2014 meningococcal polysaccharide (groups A, C, Y and W-135) diphtheria toxoid conjugate vaccine (MCV4P) Christina Portia Other [employer] Other 04-20-2014 tetanus toxoid, redu richar diphtheria toxoid, and acellular pertussis vaccine, adsorbed Christina Portia Other [facility] 04-20-2014 HPV, unspecified formulation Celeste Rinkes [facility] 04-20-2014 meningococcal ACWY vaccine, unspecified formulation Celeste Rinkes [facility] 12-27-2006 diphtheria, tetanus toxoids and acellular pertussis vaccine, unspecified formulation Ibis A Myra Work Phone: [facility] [employer] DO Work Phone: 12-27-2006 DTaP, unspecified formulation Celeste Rinkes [facility] 12-27-2006 measles, mumps, rubella, and varicella virus vaccine Ibis A Myra Work Phone: [facility] 12-27-2006 poliovirus vaccine, inactivated Ibis A Myra Work Phone: [facility] [employer] DO Work Phone: 12-27-2006 poliovirus vaccine, unspecified formulation Celeste Rinkes [facility] 02-06-2003 diphtheria, tetanus toxoids and acellular pertussis vaccine, unspecified formulation Ibis A Myra Work Phone: [facility] [employer] DO Work Phone: 02-06-2003 DTaP, unspecified formulation Celeste [employer] [facility] 02-06-2003 haemophilus influenz ae type b vaccine, conjugate unspecified formulation Ibis A Myra Work Phone: [facility] [employer] DO Work Phone: 02-06-2003 Hib, unspecified formulation Celeste Rinkes [facility] 02-06-2003 measles, mumps and rubella virus vaccine Ibis A Myra Work Phone: [facility] 02-06-2003 varicella virus vaccine Susan ica A Myra Work Phone: [facility] 07-02-2002 diphtheria, tetanus toxoids and acellular pertussis vaccine, unspecified formulation Ibis A Myra [facility] Phone[facility] Work Phone: 07-02-2002 DTaP, unspecified formulation Celeste [employer] [facility] 07-02-2002 haemophilus influenz ae type b vaccine, conjugate unspecified formulation Ibis A Myra [facility] Work Phone: 07-02-2002 Hib, unspecified formulation Celeste [employer] [facility] 07-02-2002 pneumococcal conjuga te vaccine, 7 valent Ibis A Myra Work Phone: [facility] DO Work Phone: 07-02-2002 poliovirus vaccine, inactivated Ibis A Myra Work Phone: [facility] DO Work Phone: 07-02-2002 poliovirus vaccine, unspecified formulation Celeste [employer] [facility] 05-19-2002 diphtheria, tetanus toxoids and acellular pertussis vaccine, unspecified formulation Ibis A Myra Work Phone: [facility] DO Work Phone: 05-19-2002 DTaP, unspecified formulation Celeste Rinkes [facility] 05-19-2002 haemophilus influenz ae type b conjugate and Hepatitis B vaccine Ibis A Myra Work Phone: [place] [address] DO Work Phone: 05-19-2002 pneumococcal conjuga te vaccine, 7 valent Ibis A Myra Work Phone: [place] [address] DO Work Phone: 05-19-2002 poliovirus vaccine, inactivated Ibis A Myra Work Phone: [place] [address] DO Work Phone: 05-19-2002 poliovirus vaccine, unspecified formulation Celeste [employer] [facility] 03-05-2002 diphtheria, tetanus toxoids and acellular pertussis vaccine, unspecified formulation Ibis A Myra Work Phone: [place] [address] DO Work Phone: 03-05-2002 DTaP, unspecified formulation Celeste [employer] [facility] 03-05-2002 haemophilus influenz ae type b conjugate and Hepatitis B vaccine Ibis A Myra Work Phone: [facility] 250 DO Work Phone: 03-05-2002 poliovirus vaccine, inactivated Ibis A Myra Work Phone: [facility] [employer] DO Work Phone: 03-05-2002 poliovirus vaccine, unspecified formulation Celeste [employer] [facility] 2001 hepatitis B vaccine, pediatric or pediatric/adolescent dosage Ibis A Myra Work Phone: [facility] Payers Date Payer Category Payer Self-pay [id number] 2023 Unknown [id number] 2022 Medicaid HMO [employer] [id number] 2021 Private Health Insurance [id number] .[id number]. [id number] 2021 Private Health Insurance [id number] 2.16.840.1.109016.19 2020 Private Health Insurance [facility] CHO[facility] PLUS [id number] 2020-Present [phone] [address] [place] [address] O [id number]. [id number] 2020 Unknown [id number] 2017 Managed Care Other (unspecified) [id number]. [id number] 2013 Medicaid [employer] [id number] 2013-Present [phone] [address] [place] [address] Medicaid [id number] [id number]. [id number] 2013 Medicaid [id number]. 1.13.159.2. [id number] 2007 Unknown [id number] 2.16.840.1.009853.19 2001 Unknown [id number] 2.16.840.1.503992.3.579.2. 1068 2001 Unknown [id number] 2.16.840.1.216965.3.579.2. 594 2001 Unknown [id number] 2.16.840.1.263304.3.579.2. 594 2001 Unknown [id number] 2.16.840.1.563847.3.579.2. 356 2001 Unknown [id number] 2.16.840.1.899417.3.579.2. 356 2001 Unknown [id number] 2.16.840.1.441973.3.579.2. 356 2001 Unknown [id number] 2.16.840.1.580279.3.579.2. 356 2001 Unknown [id number] 2.16.840.1.397359.3.579.2. 356 2001 Unknown [id number] 2.16.840.1.664986.3.579.2. 356 2001 Unknown [id number] 2.16.840.1.128708.3.579.2. 356 2001 Unknown [id number] 2.16.840.1.939408.3.579.2. 356 2001 Unknown [id number] 2.16.840.1.281095.3.579.2. 727 2001 Unknown [id number] 2.16.840.1.479558.3.579.2. 727 2001 Unknown [id number] 2.16.840.1.683052.3.579.2. 727 2001 Unknown [id number] 2.16.840.1.826959.3.579.2. 727 2001 Unknown [id number] 2.16.840.1.025186.3.579.2. 727 2001 Unknown [id number] 2.16.840.1.832696.3.579.2. 9 2001 Unknown [id number] 2.16.840.1.053953.3.579.2. 1258 2001 Unknown [id number] 2.16.840.1.203029.3.579.2. 1258 2001 Unknown [id number] 2.16.840.1.549728.3.579.2. 1258 2001 Unknown [id number] 2.16.840.1.063741.3.579.2. 1258 2001 Unknown [id number] 2.16.840.1.777088.3.579.2. 1258 2001 Unknown [id number] 2.16.840.1.462245.3.579.2. 1258 2001 Unknown [id number] 2.16.840.1.397741.3.579.2. 1258 2001 Unknown [id number] 2.16.840.1.978373.3.579.2. 1258 2001 Unknown [id number] 2.16.840.1.833021.3.579.2. 1258 2001 Unknown [id number] 2.16.840.1.211294.3.579.2. 1258 2001 Unknown [id number] 2.16.840.1.299761.3.579.2. 1258 2001 Unknown [id number] 2.16.840.1.835131.3.579.2. 1258 2001 Unknown [id number] 2.16.840.1.297802.3.579.2. 1258 2001 Unknown [id number] 2.16.840.1.153898.3.579.2. 1259 2001 Unknown [id number] 2.16.840.1.192043.3.579.2. 1286 2001 Unknown [id number] 2.16.840.1.978675.3.579.2. 1286 2001 Unknown [id number] 2.16.840.1.981461.3.579.2. 1286 2001 Unknown [id number] 2.16.840.1.942127.3.579.2. 1286 Unknown Unknown Venessa FRYE/JESSICA [id number] Unknown [id number] 2.16.840.1.282610.3.579.2. 531 Social History Date Type Detail Facility [facility] consumption unknown [facility] Work Phone: Start: 2001 Sex Assigned At Not on file [facility] Start: 01-15-2022 End: 07-31-2022 Exposure to SARS-CoV-2 (event) Not sure [facility] Start: 12-28-2022 End: 02-25-2024 Sex Assigned At [facility] Start: 12-28-2022 End: 02-25-2024 No alcohol use No alcohol use [facility] Comment on above: very rarely soda; Start: 09-20-2019 End: 02-20-2023 Tobacco smoking status NHIS Never smoked tobacco (finding) [facility] Start: 2001 Sex Assigned At Female F [facility] Start: 07-31-2022 End: 02-20-2023 Tobacco use and exposure Smokeless tobacco non-user [facility] Adult Depression Screening Assessment 0 [facility] Start: 09-29-2023 Gender identity Identifies as female gender (finding) [facility] Start: 06-04-2024 End: 10-27-2024 Alcoholic beverage intake Ex-drinker (finding) [facility] Do you belong to any clubs or organizations such as christian groups, unions, fraternal or athletic groups, or [...] hcare Start: 04-27-2015 Sex Female (finding) [facility] NEGATED: Highlighted rowStart: NINF History of tobacco use Passive smoker [facility] Medical Equipment Procedure Code Equipment Code Equipment Origin al Text Equipment Identifier Dates 1 strip by In Vi tro route Daily Use in the morning prior to breakfast, 1 hour after each meal for a total of 4times daily. [id number] Start: 09-18-2024 End: 10-18-2024 1 each by In Vit ro route Daily Use to check FSBS four times daily [id number] Start: 09-18-2024 End: 10-18-2024 Clinical Notes 09-24-2007 to 10-15-2024 Camilla Bar LPN - 10/15/2024 3:30 PM Titi Mendes LPN - 10/02/2024 11:00 AM ESTTelephone Encounter - Pilar Alonso LPN - 09/25/2024 12:42 PM Teresa Bar LPN - 09/18/2024 10:30 AM EST Note Date [...] note reviewed. Exam conducted with a sales and training specialist present. Vitals: Estimated body mass index is [...] Osei Malik DO documented in this encounter [facility] 10-02-2024 History of Present illness Narrative [...] note reviewed. Exam conducted with a sales and training specialist present. Vitals: Estimated body mass index is [...] Osei Malik DO documented in this encounter [facility] 09-25-2024 Telephone encounter Note Patient [...] today. Patient was advised to report to [facility] for check and she was asking if she could go to [facility] as that's closer she was advised we prefer [place] but she can go where she is comfortable. Patient states will go to [facility] as she is at work and that's closer right now. Patient advised note would be in chart. [facility] Work Phone: 09-25-2024 Miscellaneous Notes [...] today. Patient was advised to report to [facility] for check and she was asking if she could go to [facility] as that's closer she was advised we prefer [place] but she can go where she is comfortable. Patient states will go to [facility] as she is at work and that's closer right now. Patient advised note would be in chart. documented in this encounter [facility] 09-18-2024 History of Present illness [...] note reviewed. Exam conducted with a sales and training specialist present. Vitals: Estimated body mass index is [...] Osei Malik DO documented in this encounter [facility] 09-03-2024 History of Present illness [...] Osei Malik DO documented in this encounter [facility] 09-02-2024 History of Present illness Narrative Images from the original note were not included. [facility] Follow-Up VIRTUAL VISIT This is a virtual visit using Marvelom Video Visit. It required patient-provider interaction for the medical decision making as documented below. I have communicated my name and active licensure. The patient's identity and physical location were verified at the time of this visit. Either the patient or their legal marketing development representative has been informed of the risks [...] which included preparing to see the patient, [id number] patient care, completing clinical documentation, obtaining and/or reviewing separately obtained history, performing a medically appropriate examination, and counseling and educating the patient/family/caregiver. Jyoti Dickey PA-C Neuromuscular Medicine [address] [place] [address]. [id number] Appointment: [phone] During our virtual visit encounter we discussed [...] bright light?: Mild documented in this encounter [facility] 09-02-2024 Note HNO ID: [id number] Author: JYOTI DICKEY PA-C Service: ? Author Type: Physician Underwater Photographer Type: Progress Notes Filed: 09/02/2024 11:21 Note Text: [facility] Follow-Up VIRTUAL VISIT This is a virtual visit using Marvelom Video Visit. It required patient-provider interaction for the medical decision making as documented below. I have communicated my name and active licensure. The patient's identity and physical location were verified at the time of this visit. Either the patient or their legal marketing development representative has been informed of the risks [...] female here t (more content not included)... [facility] 08-29-2024 Miscellaneous Notes Psychologist Counseling spoke to patient . Patient has complains of SOB which she states is mainly at night time. She has recently seen her PCP who stated that her lungs are tight/restricted and prescribed her an inhaler. Today the patient is feeling better and states that when she checked her SPO2 today it was at 96%. Psychologist Counseling advised patient to monitor and if her O2 Sat falls under 95% and/or the inhaler does not help to present to her nearest ER. Patient verbalized understanding. documented in this encounter [facility] 08-29-2024 Telephone encounter Note Psychologist Counseling spoke to patient . Patient has complains of SOB which she states is mainly at night time. She has recently seen her PCP who stated that her lungs are tight/restricted and prescribed her an inhaler. Today the patient is feeling better and states that when she checked her SPO2 today it was at 96%. Psychologist Counseling advised patient to monitor and if her O2 Sat falls under 95% and/or the inhaler does not help to present to her nearest ER. Patient verbalized understanding. [facility] 08-27-2024 Telephone encounter Note Alternative inhaler requested by pharmacy. [facility] 08-27-2024 Miscellaneous Notes Alternative inhaler requested by pharmacy. documented in this encounter [facility] 08-27-2024 History of Present illness Narrative Images from the original note were not included. Subjective Patient ID: Madyson Mai is a 23 y.o. female who presents for asthma. Madyson is present today for evaluation of asthma. Admits she is 22 weeks with twins, she is not sure if that is what is flaring up her asthma. She has not see her kiss setter hand in a couple of years and her inhalers in June. Admits SOB especially with climbing stairs, denies cough. Goes for a 3 hour glucose test next week, because initial screen was elevated. Her Hgb was also a little low at 11.1, her RBC and hematocrit were also a little low. Sees Dr. aMlik next week. Not sure if he will [...] fail to improve. documented in this encounter [facility] 08-13-2024 History of Present illness [...] no Have you been seen here at [facility] in a previous ? no Recent ER visits or hospitalizations? no Bring blood sugar log or meter with you today? (Please bring them with you for every visit at [facility]) n/a Flu vaccine (Jul-November)? Yes Any [...] Resource Strain: Low Risk (02/25/2024) Received from [facility] Overall Financial Resource Strain (CARDIA) Difficulty of Paying Living Expenses: Not very hard Food Insecurity: No Food Insecurity (08/13/2024) Hunger Screening Food Insecurity - Worry: Never True Food Insecurity - Inability: Never True Transportation Needs: No Transportation Needs (02/25/2024) Received from [facility] PRAPARE - Transportation Lack of Transportation (Medical): No Lack of Transportation (Non-Medical): No Physical Activity: Inactive (02/25/2024) Received from [facility] Exercise Vital Sign Days of Exercise per Week: 0 days Minutes of Exercise per Session: 0 min Stress: No Stress Concern Present (02/25/2024) Received from [facility] [employer] Occupational Health - Occupational Stress Questionnaire Feeling of Stress : Only a little Social Connections: Moderately Integrated (02/25/2024) Received from [facility] Social Connection and Isolation Panel [NHANES] Frequency of Communication with Friends and Family: More than three times a week Frequency of Social Gatherings with Friends and Family: Three times a week Attends Anglican Services: More than 4 times per year Active Member of Clubs or Organizations: No Attends Club or Organization Meetings: Patient declined Marital Status: Interpersonal Safety: Not on file Housing Instability: Low Risk (02/25/2024) Received from [facility] Housing Stability Vital Sign Unable [...] complications, or both, related to use. The [employer] [employer] and the [...] tachycardia syndrome) She follows with Neurology at [facility]. Last visit was on 07/02/2024. External records reviewed. 07/02/2024 - General Neurology, Joie Seaman APRN.ASSISTANT BUYER ASSESSMENT Madyson Mai is a 23 year [...] continue with routine care in your office [facility], the CDC, and other organizations representing maternal and public health professionals recommend that , , and lactating people and those considering receive the COVID-19 vaccination. Vaccination is the best method to reduce maternal and complications of SARS-CoV-2 infection. This document was created with [employer] technology. Though I make every effort to review the dictation as it is transcribed, on occasion the spoken word can be misinterpreted by the technology leading to inappropriate words, phrases, or sentences. This note is addressed to the requesting provider as a consultation for clinical guidance. Specific medical abbreviations are occasionally used and those are generally approved by the [place]?Board of?Obstetrics and?Gynecology?as well as?Loretta s abbreviations. The above plan of care was based solely on the diagnoses for which a consultation was requested. ?More frequent testing may be indicated based on her other medical/obstetrical conditions. The management of other or medical conditions is beyond the scope of requested consultation and will continue to be followed by the primary bradder or primary care provider. Thank you for [...] procedures Referring and communicating with other health dog daycare provider (not separately reported) Documenting clinical information in the electronic or other health record Independently interpreting results (not separately reported) and communicating results to the patient/family/caregiver Care coordination (not separately reported) documented in this encounter [facility] 08-06-2024 Telephone encounter Note Can we have her schedule for a follow up appointment. Can be virtual or in person. Lesli, AM [facility] Work Phone: 08-06-2024 Miscellaneous Notes Can we have her schedule for a follow up appointment. Can be virtual or in person. Thanks, AM documented in this encounter [facility] 08-05-2024 History of Present illness Narrative [...] note reviewed. Exam conducted with a sales and training specialist present. Vitals: Estimated body mass index is [...] obtained without difficulty and patient was given [facility] order to have obtained. Orders Placed This Encounter Procedures CHLAMYDIA TRACHOMATIS (GENITO/STI) Neisseria gonorrhea DNA probe, direct Alpha fetoprotein, maternal POCT urinalysis dipstick manually resulted Follow Up: Patient is to return to our office in 4 weeks for routine OB appointment Documented by Annika Silva LPN on behalf of: TOMASZ Rizvi documented in this encounter [facility] 07-03-2024 History of Present illness [...] current . Patient is being referred to [facility] for her twin , gave her information about who she will be seeing there. No orders of the defined types were placed in this encounter. Follow Up: Patient is to return to office in 4 weeks for routine OB appointment. Documented by Ibis Sandoval on behalf of: TOMASZ Rizvi documented in this encounter [facility] 07-02-2024 History of Present illness Narrative Images from the original note were not included. [facility] Follow Up / Established Virtual Visit I have communicated my name and active licensure. The patient's identity and physical location were verified at the time of this visit. Either the patient or their legal marketing development representative has been informed of the risks and benefits of -- and alternatives to -- treatment through a remote evaluation and consents to proceed with the evaluation remotely. Individuals who were included in, or assisted with the encounter were: Madyson Mai Joie Seaman APRN.ASSISTANT BUYER Chief Complaint/Issues: Madyson Mai is a 23 year old female seen in the [facility] for: POTS Most [...] Plan 07/02/2024 - General Neurology, Joie Seaman APRN.ASSISTANT BUYER ASSESSMENT Madyson Mai is a 23 year [...] which included preparing to see the patient, [id number] patient care, completing clinical documentation, obtaining and/or reviewing separately obtained history, performing a medically appropriate examination, counseling and educating the patient/family/caregiver, and ordering medications, tests, or procedures. Joie Seaman, JOB INTERVIEWER.ASSISTANT BUYER 06/28/2024 PROMIS Global [employer] Physical Health Summary [...] and warrants attention documented in this encounter [facility] 07-02-2024 Note HNO ID: [id number] Author: JOIE SEAMAN APRN.CNP Service: ? Author Type: Nurse Practitioner Type: Progress Notes Filed: 07/02/2024 19:57 Note Text: [facility] Follow Up / Established Virtual Visit I have communicated my name and active licensure. The patient's identity and physical location were verified at the time of this visit. Either the patient or their legal marketing development representative has been informed of the risks and benefits of -- and alternatives to -- treatment through a remote evaluation and consents to proceed with the evaluation remotely. Individuals who were included in, or assisted with the encounter were: Madyson Seaman APRN.CNP Chief Complaint/Issues: Madyson Mai is a 23 year old female seen in the [facility] for: POTS Most [...] Plan 07/02/2024 - General Neurology, Joie Seaman APRN.ASSISTANT BUYER ASSESSMENT Madyson Mai is a 23 year [...] Mostly Moderately S (more content not included)... [facility] 06-04-2024 History of Present illness Narrative [...] note reviewed. Exam conducted with a sales and training specialist present. Vitals: Estimated body mass index is [...] possibly adding medication. Pt being referred to [facility] for TWIN gestation. Expectations throughout regarding [...] weeks for routine OB appointment. Documented by Camilal Bar LPN on behalf of: Osei Malik DO documented in this encounter [facility] 05-23-2024 History of Present illness [...] providers found * documented in this encounter [facility] 05-20-2024 History of Present illness [...] topical cream for less systemic absorption. Consider client care consultant. Can provide pt with referral to PT if symptoms do not improve with the above. X-rays not yet indicated, especially as pt is . Follow up if symptoms worsen or fail to improve. documented in this encounter [facility] 03-20-2024 History of Present illness Narrative Images from the original note were not included. [facility] Follow-Up VIRTUAL VISIT This is a virtual visit using [employer] Zoom Video Visit. It required patient-provider interaction for the medical decision making as documented below. I have communicated my name and active licensure. The patient's identity and physical location were verified at the time of this visit. Either the patient or their legal marketing development representative has been informed of the risks [...] which included preparing to see the patient, noev-zf-caup patient care, completing clinical documentation, obtaining and/or reviewing separately obtained history, performing a medically appropriate examination, counseling and educating the patient/family/caregiver, and ordering medications, tests, or procedures. Jyoti Dickey PA-C Neuromuscular Medicine [facility] [place]. [address] Appointment: [phone] During our virtual visit encounter we discussed [...] problem? : Mild documented in this encounter [facility] 03-20-2024 Note HNO ID: [id number] Author: JYOTI DICKEY PA-C Service: ? Author Type: Physician Underwater Photographer Type: Progress Notes Filed: 03/20/2024 15:17 Note Text: [facility] Follow-Up VIRTUAL VISIT This is a virtual visit using Marvelom Video Visit. It required patient-provider interaction for the medical decision making as documented below. I have communicated my name and active licensure. The patient's identity and physical location were verified at the time of this visit. Either the patient or their legal marketing development representative has been informed of the risks and benefits of -- and alternatives to -- treatment through a remote evaluation and consents to proceed with the evaluation remotely. Madyson Mai is a 23 year old female here today for a follow up regarding POTS. Last Visit 11/30/2023: Maydson Mai is a 22 year old here [...] the mean hea (more content not included)... [facility] 11-30-2023 History of Present illness Narrative Images from the original note were not included. [facility] New Patient Evaluation [...] experienced LOC while walking up the stairs. Porter prodromal symptoms including lightheadedness and tunnel vision. [...] Plantarflexion 5/5 5/5 Movement/Coordination Finger-to- nose-finger and [id number] intact bilaterally. No evidence of ataxia arms. [...] which included preparing to see the patient, [id number] patient care, completing clinical documentation, obtaining and/or [...] 11/30/23. Jyoti Dickey PA-C Neuromuscular Medicine [address] [place] [address]. [phone] Appointment: [phone] 1. This office note has been dictated [...] problem? : Moderate documented in this encounter [facility] 11-30-2023 Note HNO ID: [id number] Author: JYOTI DICKEY PA-C Service: ? Author Type: Physician Underwater Photographer Type: Progress Notes Filed: 11/30/2023 11:14 Note Text: [facility] New Patient Evaluation [...] experienced LOC while walking up the stairs. Porter prodromal symptoms including lightheadedness and tunnel vision. [...] breathing: - Tac (more content not included)... [facility] 11-12-2023 Note HNO ID: [id number] Author: ?, ?, ? Service: ? Author [...] Care Visit completed when applicable. Gauri Harris [facility] 11-12-2023 History of Present illness Narrative [...] applicable. Gauri Harris documented in this encounter [facility] 10-10-2023 Note HNO ID: [id number] Author: AURORA SANTIAGO PA-C Service: ? Author Type: Physician Underwater Photographer Type: Progress Notes Filed: 10/10/2023 16:33 Note Text: [facility] New Patient Evaluation [...] SOB, tightness of breathing and Chest pain: 2021 SOB everyday Happens randomly, not related [...] No current facility-adminis (more content not included)... [facility] 10-10-2023 Note HNO ID: [id number] Author: ANGELIQUE RUTH MD Service: ? Author Type: Physician Type: Procedures Filed: 02/24/2024 20:55 Note Text: Patient Name: Madyson Mia : 2000 Ordering Provider: AURROA SANTIAGO Indication: R55 Syncope and collapse Type [...] VE Couplets or VE Triplets were present. [facility] 07-20-2023 Telephone encounter Note Call to Madyson to discuss referral to dysautonomia clinic. Informed her that we are unable to provide dysautonomia evaluation at this time. Provided number for [facility] scheduling service. No other needs at this time. [facility] 07-20-2023 Miscellaneous Notes Call to Madyson to discuss referral to dysautonomia clinic. Informed her that we are unable to provide dysautonomia evaluation at this time. Provided number for [facility] scheduling service. No other needs at this time. documented in this encounter [facility] 07-10-2023 Note HNO ID: [id number] Author: Jose Armando Grey, DO Service: ? Author Type: Physician Type: Progress Notes Filed: 07/10/2023 10:08 AM Note Text: [facility] Office Visit Documentation Note [facility] Sports Medicine Orthopaedic and Rheumatologic [place] HISTORY OF PRESENT ILLNESS (HPI) CHIEF COMPLAINT / REASON FOR VISIT SERVICE DATE: July 10, 2023 PCP: No primary care provider on file. Madyson Schmid is here today at request of Dr. Jose Armando Schmid specifically for consultation of my opinion in regards to the chief complaint listed below. 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 Reaction knee brace Consider [place] toradol, did discuss orthobiologics Follow up: Films prior to visit: Written instructions (see patient instructions) and verbal health education given to patient. Patient verbalizes understanding and agrees with the treatment plan. Jose Armando Grey D.O. [facility] Orthopaedic and Rheumatologic Retail Sales Lead, [facility] T[employer] Program Team Physician, [facility] [employer] Consulting Physician, Theodore Martin Nagel, Netting Weaver [phone] [facility] 07-10-2023 History of Present illness Narrative Images from the original note were not included. [facility] Office Visit Documentation Note [facility] Sports Medicine Orthopaedic and Rheumatologic [place] HISTORY OF PRESENT ILLNESS (HPI) CHIEF COMPLAINT / REASON FOR VISIT SERVICE DATE: July 10, 2023 PCP: No primary care provider on file. Madyson Schmid is here today at request of Dr. Jose Armando Schmid specifically for consultation of my opinion in regards to the chief complaint listed below. 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 Reaction knee brace Consider [place] toradol, did discuss orthobiologics Follow up: Films prior to visit: Written instructions (see patient instructions) and verbal health education given to patient. Patient verbalizes understanding and agrees with the treatment plan. Jose Armando Grey D.O. [facility] Orthopaedic and Rheumatologic Retail Sales Lead, [facility] & T.E.A.M. Program Team Physician, [facility] [employer] Consulting Physician, Theodore Martin Nagel, Netting Weaver [phone] documented in this encounter [facility] 12-28-2022 History of Present illness Narrative [...] surgery Evaluated by DR Case ([facility]) in 2020 no rheum issue found and [...] Swollen Glands: No documented in this encounter [facility] 07-31-2022 History of Present illness Narrative [...] surgery Evaluated by DR Case ([facility]) in 2020 no rheum issue found and [...] Swollen Glands: No documented in this encounter [facility] 07-10-2022 History of Present illness Narrative [...] she did get a second opinion in [place], and no change in medication was suggested [...] I will defer that to Dr. Link MEYERS-[facility] [address] DO Work Phone: 06-12-2022 Note Pre-procedure Verifi cation and Time Out: Pre-Procedure Verification and Time Out: Procedure Locationbedside PRE-PROCEDURE Verificationcompleted TIME OUT - Final Verificationcompleted immediately prior to procedure start General Information: Anesthesia Critical Care: Non-Anesthesia Date/Time of Procedure: 12-Jun-2022 Post-Procedure Diagnosis: syncope Procedure Name: tilt table test Findings: grossly normal anatomy Procedure performed by: ut Underwater Photographer(s): none Estimated Blood Loss (mL): none Specimen: [...] Last Updated: 14-Jun-2022 11:56 by Annalee Maza) [facility] 03-24-2022 History of Present illness Narrative [...] while walking to the bathroom.She will see kiss setter hand in the near future, she had her pulmonary function test which I reviewed, there is concern for chronic asthma, but no reactive airway disease.She has 3 dogs that she had, and 1 cat at home.She is not orthostatic. She is feeling palpitations quite a bit.Results of the pulmonary function test and a Micah [employer] was reviewed. Also reviewed stress test and [...] that, we will have to schedule at [facility], and patient is okay with driving.4. Lifestyle modifications such as regular aerobic activity as tolerated, excessive sodium intake, and possibly low-dose beta-blockers can be tried. If her breathing gets worse on the beta-blockers, then she should stop it. We will decide after seen by pulmonary, and also after the results of culpable test are available. [facility] Work Phone: 03-24-2022 History of Present illness Narrative Patient was first seen in March 2022 and presents for follow-up after testing.She is a 21-year-old female who was seen in cardiology consultation at the request of Ibis Colbert, BROADCAST SYSTEMS ENGINEER, for bouts of severe shortness of breath. [...] while walking to the bathroom.She will see kiss setter hand in the near future, she had her pulmonary function test which I reviewed, there is concern for chronic asthma, but no reactive airway disease.She has 3 dogs that she had, and 1 cat at home.She is not orthostatic. She is feeling palpitations quite a bit.Results of the pulmonary function test and a Micah [employer] was reviewed. Also reviewed stress test and [...] that, we will have to schedule at [facility], and patient is okay with driving.4. Lifestyle modifications such as regular aerobic activity as tolerated, excessive sodium intake, and possibly low-dose beta-blockers can be tried. If her breathing gets worse on the beta-blockers, then she should stop it. We will decide after seen by pulmonary, and also after the results of culpable test are available. -[facility] 250 DO Work Phone: 02-02-2022 Miscellaneous Notes [...] P Mathai, MD documented in this encounter [facility] 01-25-2022 History of Present illness Narrative [...] February Evaluated by DR Case ([facility]) in 2020 no rheum issue found and [...] February Evaluated by DR Case ([facility]) in 2020 no rheum issue found and [...] Irvin Hanna MD documented in this encounter [facility] 01-10-2022 Evaluation note Encounter Date Diagnosis [...] go ahead with her evaluation in [facility]. [facility] Other 01-17-2022 Evaluation note* Encounter Date Diagnosis [...] day as needed for pain and swelling. [facility] Other 07-01-2021 History of Present illness Narrative* [...] at 6:30 in the morning in the to go to the bathroom. She felt [...] heart murmur and has been transferred to [facility] * There is no family [...] 3 times daily. New prescription sent. Consider [place] in the future. * Order 30-day monitor [...] needed, treatment options, risks, benefits, and imponderables. [employer] [employer] lifestyle changes and behavioral modification discussed. All questions answered in detail. Counseling over 50% visit regarding above. Patientappreciative of care. * At the end the office visit, she did report that she will be seeing an billing specialist in [place]. We did discuss that she could hold [...] errors as software dictation application being used. -[facility] [address] DO Work Phone: [phone]) 491-732108-25-2020 History of Present illness Narrative* She is [...] exposed to secondhand smoke from her mother. -[facility] [employer] DO Work Phone: [phone] 276-906007-09-2020 History of Present illness Narrative* Patient is [...] twin brother had to be taken to [facility], and has history of heart murmur. * [...] arise, * Sincerely, * Melodie alcaraz MD [facility] Work Phone: [phone] History of Present illness Narrative* Patient is [...] twin brother had to be taken to [facility], and has history of heart murmur. * [...] arise, * Sincerely, * Melodie alcaraz MD [place] [address] DO Work Phone: [phone] History of Present illness Narrative* Patient is [...] twin brother had to be taken to [facility], and has history of heart murmur. * [...] arise, * Sincerely, * Melodie alcaraz MD [facility] 250 DO Work Phone: [phone]) 935-406501-01-2008 History general Narrative - Reported* Type Description Date Medical History general health good Surgical History tonsillectomy and adenoidectomy 09/2007 [facility] Other 01-01-2008 History general Narrative - Reported* Type Description Date Medical History general health good Surgical History tonsillectomy and adenoidectomy 09/2007 Surgical History right knee cleaned up scar tiss ue 2020 [facility] Other Chimi complaint Narrative - ReportedMADYSON SCHMID is being seen for a cardiovascular evaluation of abnormal test(s) results and dyspnea.-[facility] [address] DO Work Phone: Chido complaint Narrative - ReportedMADYSON SCHMID is being seen for a cardiovascular evaluation of abnormal test(s) results and dyspnea.[facility] Work Phone: Evaluation + Plan note No data available for this section [facility] Diagnosis Pain and swelling of knee, right- Primary Joint stiffness Stiffness of joint, not elsewhere classified, unspecified site documented [facility] noteNo assessment information [facility] Work Phone: Evaluation note* Diagnosis Pain and swelling of knee, right- Primary Joint stiffness Stiffness of joint, not elsewhere classified, unspecified site Inflammatory arthritis Unspecified inflammatory polyarthropathy documented [facility]* Diagnosis Pain and swelling of knee, right- Primary Joint stiffness Stiffness of joint, not elsewhere classified, unspecified site [facility]* Diagnosis Right knee pain, unspecified chronicity- Primary documented in [facility]* Diagnosis Chronic pain of right knee- Primary Tendinopathy of gluteal region Unspecified disorder of synovium, tendon, and bursa documented in this encounter [facility]* Diagnosis Orthostatic lightheadedness- Primary Dizziness and giddiness documented [facility]* Diagnosis POTS (postural orthostatic tachycardia syndrome)- Primary Tachycardia, unspecified [facility]* Diagnosis POTS (postural orthostatic tachycardia syndrome)- Primary Tachycardia, unspecified [facility]* Diagnosis POTS (postural orthostatic tachycardia syndrome)- Primary Tachycardia, unspecified Near syncope Syncope and collapse documented [facility] encounter [facility]* Diagnosis Second trimester state, incidental 14 weeks gestation of [facility] Diagnosis Thumb pain, right- [...] Leg cramping Heartburn documented in [facility] encounter [facility]* Diagnosis Dichorionic diamniotic twin in second trimester- Primary POTS (postural orthostatic tachycardia syndrome) Unspecified tachycardia Asthma during 20 weeks gestation of [facility] Diagnosis Dichorionic diamniotic twin in second trimester- Primary POTS (postural orthostatic tachycardia syndrome) Unspecified tachycardia Asthma during 20 weeks gestation of [facility]* Diagnosis Thumb pain, right- [...] syndrome) Unspecified tachycardia documented in this encounter [facility]* Diagnosis Thumb pain, right- [...] without complication (CMS/HCC) documented in this encounter [facility]* Diagnosis POTS (postural orthostatic tachycardia syndrome)- Primary Tachycardia, unspecified 23 weeks gestation of state, incidental [facility] Diagnosis Thumb pain, right- Primary [...] exam Routine [facility] 25 weeks gestation of Second [...] heart murmur and had been transferred to [facility] * There is no change [...] saw Dr. Muñiz at [facility] for second opinion regarding neurally mediated syncope and near syncope. He agreed with evaluation and management and patient opted to follow-up here at [facility] in [place]. * Zio patch August 2022. All rhythms [...] needed, treatment options, risks, benefits, and imponderables. [employer] [employer] lifestyle changes and behavioral modification discussed. All questions answered in detail. Counseling over 50% visit regarding above. Patient appreciative of care. * Grammar * Please excuse grammatical or dictation errors as software dictation application being used. [facility] [address] DO Work Phone: History of Present illness Narrative* The patient states she has been generally stable since the last visit. * Symptoms: denies chest pain at rest, denies exertional chest pain, denies dyspnea, stable fatigue, denies exercise intolerance, stable palpitations, denies edema, denies orthopnea, stable dizziness and stable orthostatic dizziness. * Disease Monitoring: [facility] 600 DO Work Phone: Hospital Discharge instructions No data available for this section [facility] HospitalInstructionsNot on filedocumented in this encounter [facility] on filedocumented in this encounter [facility]Not [facility] filedocumented in this encounter [facility]ructionsNot on filedocumented in this encounter [facility] SystemInstructionsNot on filedocumented in this encounter [facility] TotalHousehold SystemProgress note No data available for this section [facility] HospitalReason for referral (narrative)* Diagnostic Procedure Only (Routine) - Pending Review Specialty Diagnoses / Procedures Referred By Rachel lópez Referred To Contact XR IMAGING Diagnoses Right knee pain, unspecified chronicity Procedures XR KNEE GENERAL 4V AP BOTH/PA BOTH/LAT/MERC RIGHT RADIOLOGIC EXAM KNEE COMPLETE 4/[place] [address] [place] [address] [place] [address] Referral ID Status Reason Start Date Expiration Date Visits Requested Visits Authorized [id number] Pending Review Auto-Generat ed Referral 3 08/04/2024 1 1 [facility] for visit [facility] knee referral from Cj Jaimes, She gets a funny rash on her knee and toesElizabethtown Pull Other Summary Purpose Family History Unknown Family [...] or prosecute any alcohol or drug abuse patient.[facility] Hospital[facility] the event this information is protected by the Federal Confidentiality of Alcohol and Drug Abuse Patient Records regulations: The Federal rules restrict any use of the information to criminally investigate or prosecute any alcohol or drug abuse patient.[facility] Hospital[facility] the event this information is protected by the Federal Confidentiality of Alcohol and Drug Abuse Patient Records regulations: The Federal rules restrict any use of the information to criminally investigate or prosecute any alcohol or drug abuse patient.[facility] HospitalIn the event this information is protected by the Federal Confidentiality of Alcohol and Drug Abuse Patient Records regulations: The Federal rules restrict any use of the information to criminally investigate or prosecute any alcohol or drug abuse patient.[facility] HospitalIn the event this information is protected by the Federal Confidentiality of Alcohol and Drug Abuse Patient Records regulations: The Federal rules restrict any use of the information to criminally investigate or prosecute any alcohol or drug abuse patient.[facility] HospitalIn the event this information is protected by the Federal Confidentiality of Alcohol and Drug Abuse Patient Records regulations: The Federal rules restrict any use of the information to criminally investigate or prosecute any alcohol or drug abuse patient.[facility] HospitalIn the event this information is protected by the Federal Confidentiality of Alcohol and Drug Abuse Patient Records regulations: The Federal rules restrict any use of the information to criminally investigate or prosecute any alcohol or drug abuse patient.[facility] HospitalIn the event this information is protected by the Federal Confidentiality of Alcohol and Drug Abuse Patient Records regulations: The Federal rules restrict any use of the information to criminally investigate or prosecute any alcohol or drug abuse patient.[facility] HospitalIn the event this information is protected by the Federal Confidentiality of Alcohol and Drug Abuse Patient Records regulations: The Federal rules restrict any use of the information to criminally investigate or prosecute any alcohol or drug abuse patient.[facility] HospitalIn the event this information is protected by the Federal Confidentiality of Alcohol and Drug Abuse Patient Records regulations: The Federal rules restrict any use of the information to criminally investigate or prosecute any alcohol or drug abuse patient.[facility] HospitalIn the event this information is protected by the Federal Confidentiality of Alcohol and Drug Abuse Patient Records regulations: The Federal rules restrict any use of the information to criminally investigate or prosecute any alcohol or drug abuse patient.[facility] HospitalIn the event this information is protected by the Federal Confidentiality of Alcohol and Drug Abuse Patient Records regulations: The Federal rules restrict any use of the information to criminally investigate or prosecute any alcohol or drug abuse patient.[facility] HospitalIn the event this information is protected by the Federal Confidentiality of Alcohol and Drug Abuse Patient Records regulations: The Federal rules restrict any use of the information to criminally investigate or prosecute any alcohol or drug abuse patient.[facility] Reason for Visit (unrecogniz ed section [...] section and content) DATE CREATED AUTHOR 02/03/2022 [facility] DATE CREATED AUTHOR AUTHOR'S ORGANIZ ATION 06/24/2022 [facility] DATE CREATED AUTHOR AUTHOR'S ORGANIZ ATION 09/15/2022 [employer] DATE CREATED AUTHOR AUTHOR'S ORGANIZ ATION 03/16/2023 [facility] DATE CREATED AUTHOR AUTHOR'S ORGANIZ ATION 06/15/2023 [facility] DATE CREATED AUTHOR AUTHOR'S ORGANIZ ATION 07/11/2023 [facility] DATE CREATED AUTHOR AUTHOR'S ORGANIZ ATION 03/15/2024 [place] [facility] DATE CREATED AUTHOR AUTHOR'S ORGANIZ ATION 04/15/2024 [facility] DATE CREATED AUTHOR AUTHOR'S ORGANIZ ATION 07/11/2024 [facility] DATE CREATED AUTHOR AUTHOR'S ORGANIZ ATION 07/26/2024 [place] [facility] DATE CREATED AUTHOR AUTHOR'S ORGANIZ ATION 09/05/2024 [facility] DATE CREATED AUTHOR AUTHOR'S ORGANIZ ATION 10/17/2024 [facility] DATE CREATED AUTHOR AUTHOR'S ORGANIZ ATION 10/18/2024 [facility] Care Teams (unrecognized sec tion and [...] , TIKA-C Primary Care Provider Activ e Team Status: Inactive Member Role Status Dates Ibis Renteria , BROADCAST SYSTEMS ENGINEER-C Primary Care Provider Activ e Dyllan Pearce APRN Emergency Provider Active Team Status: Inactive Member Role Status Dates Ibis Maggy Myra , BROADCAST SYSTEMS ENGINEER-C Primary Care Provider Activ e Christina Perez , JOB INTERVIEWER Attending Provider Active Team Status: Inactive Member Role Status Dates Ibis Renteria , BROADCAST SYSTEMS ENGINEER-C Primary Care Provider Activ e Carlitos Nguyen Jr, DO Attending Provider Active Traffic Maintenance Officer Relationship Specialty Start Date End Date Ibis Renteria CNP [address] [place] [address] PCP - General Nurse Practitioner 07/09/23 Traffic Maintenance Officer Relationship Specialty Start Date End Date Susan Renteriaeren Díaz ASSISTANT BUYER [address] [place] [address] PCP - General Nurse Practitioner 07/09/23 Team Status: Inactive Member Role Status Dates Ibis Renteria , BROADCAST SYSTEMS ENGINEER-C Primary Care Provider Activ e Haris Martino , DO Emergency Provider Active Team Status: Inactive Member Role Status Dates Ibis Renteira , BROADCAST SYSTEMS ENGINEER-C Primary Care Provider Activ e Nam Barnes , DO [facility] Attending Provider Active Traffic Maintenance Officer Relationship Specialty Start Date End Date Jb Mandujano MD [address] [facility] [address] [place] [address] PCP - General Family Medicine 05/20/24 Osei Malik DO [address] [place], [place] [id number] Referring Physician Obstetrics and Gynecology 06/05/24 Flori Gil PA [address] [place] [address] Physician Underwater Photographer Obstetrics and Gynecology 06/05/24 Traffic Maintenance Officer Relationship Specialty Start Date End Date Jb Mandujano MD [address] [place] [facility] [address] [place] [address] PCP - General Family Medicine 05/20/24 Osei Malik, DO [address] [place] [address] Referring Physician Obstetrics and Gynecology 06/05/24 Flori Gil PA [address] [place] [address] Physician Underwater Photographer Obstetrics and Gynecology 06/05/24 Traffic Maintenance Officer Relationship Specialty Start Date End Date Ander Boateng MD [address] [place] [address] PCP - General 11/30/17 Traffic Maintenance Officer Relationship Specialty Start Date End Date Jb Mandujano MD [address] [place] [facility] [address] [place] [address] PCP - General Family Medicine 05/20/24 Osei Malik, DO [address] [place] [address] Referring Physician Obstetrics and Gynecology 06/05/24 Flori Gil PA [address] [place] [address] Physician Underwater Photographer Obstetrics and Gynecology 06/05/24 Traffic Maintenance Officer Relationship Specialty Start Date End Date Jb Mandujano MD [address] [facility] [address] [place] [address] PCP - General Family Medicine 05/20/24 Osei Malik DO [address] [place] [address] Referring Physician Obstetrics and Gynecology 06/05/24 Flori Gil PA [address] [place] [address] Physician Underwater Photographer Obstetrics and Gynecology 06/05/24 Traffic Maintenance Officer Relationship Specialty Start Date End Date Jb Mandujano MD [address] [facility] [address] [place] [address] PCP - General Family Medicine 05/20/24 Osei Malik DO [facility] [place] [address] Referring Physician Obstetrics and Gynecology 06/05/24 Flori Gil PA [facility] [place] [address] Physician Underwater Photographer Obstetrics and Gynecology 06/05/24 Traffic Maintenance Officer Relationship Specialty Start Date End Date Ander Boateng MD [address] [place] [address] PCP - General 11/30/17 Traffic Maintenance Officer Relationship Specialty Start Date End Date Jb Mandujano MD [address] [facility] [address] [place] [address] PCP - General Family Medicine 05/20/24 Osei Malik DO [facility] [place] [address] Referring Physician Obstetrics and Gynecology 06/05/24 Flori Gil PA [facility] [place] [address] Physician Underwater Photographer Obstetrics and Gynecology 06/05/24 Traffic Maintenance Officer Relationship Specialty Start Date End Date Jb Mandujano MD [address] [facility] [address] [place] [address] PCP - General Family Medicine 05/20/24 Osei Malik DO [address] [place] [address] Referring Physician Obstetrics and Gynecology 06/05/24 Flori Gil PA [address] [place] [address] Physician Underwater Photographer Obstetrics and Gynecology 06/05/24 Traffic Maintenance Officer Relationship Specialty Start Date End Date Ander Boateng MD [address] [place] [address] PCP - General 11/30/17 Traffic Maintenance Officer Relationship Specialty Start Date End Date Jb Mandujano MD [address] [facility] [address] [place] [address] PCP - General Family Medicine 05/20/24 Osei Malik DO [address] [place] [address] Referring Physician Obstetrics and Gynecology 06/05/24 Flori Gil PA [address] [place] [address] Physician Underwater Photographer Obstetrics and Gynecology 06/05/24 Traffic Maintenance Officer Relationship Specialty Start Date End Date Jb Mandujano MD [address] [facility] [address] [place] [address] PCP - General Family Medicine 05/20/24 Osei Malik DO [address] [place] [address] Referring Physician Obstetrics and Gynecology 06/05/24 Flori Gil PA [address] [place], [place] [id number] Physician Underwater Photographer Obstetrics and Gynecology 06/05/24 Traffic Maintenance Officer Relationship Specialty Start Date End Date Ander Boateng MD [address] [place] [address] PCP - General 11/30/17 Traffic Maintenance Officer Relationship Specialty Start Date End Date Jb Mandujano MD [address] [facility] [address] [place] [address] PCP - General Family Medicine 05/20/24 Osei Malik DO [address] [place] [address] Referring Physician Obstetrics and Gynecology 06/05/24 Flori Gil PA [address] [place], [place] [address] [id number] Physician Underwater Photographer Obstetrics and Gynecology 06/05/24 Traffic Maintenance Officer Relationship Specialty Start Date End Date Jb Mandujano MD [address] [facility] [address] [place] [address] PCP - General Family Medicine 05/20/24 Traffic Maintenance Officer Relationship Specialty Start Date End Date Jb Mandujano MD [address] [facility] [address] [place] [address] PCP - General Family Medicine 05/20/24 Traffic Maintenance Officer Relationship Specialty Start Date End Date Jb Mandujano MD [address] [facility] [address] [place] [address] PCP - General Family Medicine 05/20/24 Traffic Maintenance Officer Relationship Specialty Start Date End Date Jb Mandujano MD [address] [facility] [address] [place] [address] PCP - General Family Medicine 05/20/24 Traffic Maintenance Officer Relationship Specialty Start Date End Date Jb Mandujano MD [address] [facility] [address] [place] [address] PCP - General Family Medicine 05/20/24 Osei Malik, DO [address] [place] [address] Referring Physician Obstetrics and Gynecology 06/05/24 Flori Gli PA [address] [place] [address] Physician Underwater Photographer Obstetrics and Gynecology 06/05/24 Traffic Maintenance Officer Relationship Specialty Start Date End Date Jb Mandujano MD [address] [place] [facility] [address] [place] [address] PCP - General Family Medicine 05/20/24 Osei Malik, DO [address] [place] [address] Referring Physician Obstetrics and Gynecology 06/05/24 Flori Gil PA [address] [place] [address] Physician Underwater Photographer Obstetrics and Gynecology 06/05/24 Traffic Maintenance Officer Relationship Specialty Start Date End Date Jb Mandujano MD [address] [facility] [address] [place] [address] PCP - General Family Medicine 05/20/24 Osei Malik, [address] [place] [address] Referring Physician Obstetrics and Gynecology 06/05/24 Flori Gil PA [address] [place] [address] Physician Underwater Photographer Obstetrics and Gynecology 06/05/24 Traffic Maintenance Officer Relationship Specialty Start Date End Date Jb Mandujano MD [address] [facility] [address] [place] [address] PCP - General Family Medicine 05/20/24 Osei Malik, [address] [place] [address] Referring Physician Obstetrics and Gynecology 06/05/24 Flori Gil PA [address] [place] [address] Physician Underwater Photographer Obstetrics and Gynecology 06/05/24 Traffic Maintenance Officer Relationship Specialty Start Date End Date Ander Boateng MD [address] [place] [address] PCP - General 11/30/17 Traffic Maintenance Officer Relationship Specialty Start Date End Date Jb Mandujano MD [address] [facility] [address] [place] [address] PCP - General Family Medicine 05/20/24 Osei Malik, [address] [place] [address] Referring Physician Obstetrics and Gynecology 06/05/24 Flori Gil PA [address] [place] [address] Physician Underwater Photographer Obstetrics and Gynecology 06/05/24 Traffic Maintenance Officer Relationship Specialty Start Date End Date Jb Mandujano MD [address] [facility] [address] [place] [address] PCP - General Family Medicine 05/20/24 Osei Malik DO [facility] [place] [address] Referring Physician Obstetrics and Gynecology 06/05/24 Flori Gil PA [facility] [place] [address] Physician Underwater Photographer Obstetrics and Gynecology 06/05/24 Traffic Maintenance Officer Relationship Specialty Start Date End Date Ander Boateng MD [address] [place] [address] PCP - General 11/30/17 Traffic Maintenance Officer Relationship Specialty Start Date End Date Jb Mandujano MD [address] [facility] [address] [place] [address] PCP - General Family Medicine 05/20/24 Osei Malik DO [facility] [place] [address] Referring Physician Obstetrics and Gynecology 06/05/24 Flori Gil PA [facility] [place] [address] Physician Underwater Photographer Obstetrics and Gynecology 06/05/24 Traffic Maintenance Officer Relationship Specialty Start Date End Date Jb Mandujano MD [address] [facility] [address] [place] [address] PCP - General Family Medicine 05/20/24 Osei Malik DO [address] [place], [place] [id number] Referring Physician Obstetrics and Gynecology 06/05/24 Flori Gil PA [address] [place] [address] Physician Underwater Photographer Obstetrics and Gynecology 06/05/24 Goals (unrecognized section [...] BE BASED ON THE PRIMARY CLINICAL RECORDS. [email or web address] provides no warranty or guarantee of the accuracy or completeness of information in this document.
[2024-11-01 13:05] VITALS: BP 115/78; PULSE 108
--- NOTE | 2024-11-01 13:52 | PC.NURSE ---
Addendum entered by Cindy Odonnell 11/01/24 14:06: Pt denies pain medication use for pain but states she has tried heat and that helped a little bit. Original Note: 1300- Pt arrives for scheduled NST at this time. Pt states she has been having right sided back pain that radiates down since 10/27/2024. Pt states she was seen in [facility] 10/27/2024 for this pain and was sent home. Pt states she was told she has UTI . Pt states she was not prescribed medications at that time because the physician was awaiting the culture results. Pt next OB appointment is not until 11/10/2024. Pt states her urine culture was obtained and resulted last night. Pt states if she is able she would like to be started on ATB if able instead of waiting for the office to open on Sunday morning. Pt facial flushing noted. Pt denies pre-e s/s, vaginal bleeding, and vaginal leaking.
--- NOTE | 2024-11-01 14:06 | PC.NURSE ---
1335-Pt updated on the plan of care. Pt verbalizes understanding. Pt to pick-up prescription on her way home. Pt advised to return to [facility] if s/s worsen or do not improve.
--- NOTE | 2024-11-01 14:09 | PC.NURSE ---
1342-RN calls pt preferred pharmacy [facility]. RN leaves message with pharmacy regarding pt prescription ordered per for Macrobid 1 tab PO twice daily for 7 days.
== END 2024-11-01 13:40 | disposition home or self-care (01) ==
LOC: FBCO 00:36 → FBC 12:57
PROVIDERS: PCP Family Medicine; Visit Provider Obstetrics & Gynecology
DX: O30.043 Twin pregnancy, dichorionic/diamniotic, third trimester (principal); Z3A.32 32 weeks gestation of pregnancy
CPT/HCPCS: 59025

== ENCOUNTER 2024-11-05 00:44 | Outpatient (OUT) | payer OTHER, SELFPAY ==
--- OUTSIDE RECORDS SUMMARY | 2024-11-05 00:49 | XMS_ITS | CCD ---
Author Organization [facility] Care Team Providers Care Transit Department Clerk Name Role Phone Unavailable Primary Care Provider Unavailsoniya e Christina Pearce Unavailable Ok Mckeon Unavailable Ibis Renteria Unavailable Unavailable Unavailable CARLOS Renteria Primary Care Provider MD Melodie Alcaraz Attending Provider [phone] MD Álvaro Osborn Referring Provider CARLOS Davidson Attending Provider [phone] JOHNNY Pearce Emergency Provider [phone] Link, Dr. Annalee Torres Attending Unavailab celine [...] Myra Ibis GOODSON Primary Care Provider [phone] Myra, TAR HEATER OPERATOR-C Ibis Winter Primary Care Provider DO Haris Martino Emergency Provider DO Nam Barnes Attending Provider JB MANDUJANO Primary Care Physician [phone] Rinkes, Celeste Admitting Unavailable Rinkes, Celeste Attending Unavailable Jocelin FELIX Attending Unavailable Mae, ACTUARY MANAGER Krista L Attending Unavailable Mae, ACTUARY MANAGER Krista L Attending Unavailable Unavailable Primary Care Provider Unavailabl e Rinkes, Celeste Attending Unavailable Rinkes, Celeste Admitting Unavailable Rinkes, Celeste Attending Unavailable Rinkes, Celeste Admitting Unavailable Jb Mandujano MD Primary Care Provider Osei Malik DO Unavailable Flori Sam Unavailable K[facility] Un[facility] Admitting Unavailable Ibis Renteria Primary Care Unavailable Rinkes, Celeste Attending Unavailable Rinradha, Celeste Admitting Unavailable SANTIAGO, AURORA Attending Unavailable SANTIAGO, AURORA Referring Unavailable SANTIAGO, AURORA Referring Unavailable SANTIAGO, AURORA Referring Unavailable SANTIAGO, AURORA Referring Unavailable NOBLE, YJOTI Attending Unavailable NOBLE, JYOTI Attending Unavailable JOIE SEAMAN Attending Unavailable NOBLE, JYOTI Attending Unavailable Helena, Osei Attending Unavailable Helena, Osei Admitting Unavailable Osei Malik DO Attending Provider HELENA, OSEI R Referring Unavailable [facility] Primary Care Unavailable MOUSSA, HIND NADIM Attending Unavailable HELENA, OSEI R Referring Unavailable [facility] Primary Care Unavailable HELENA, OSEI R Referring Unavailable [facility] Primary Care Unavailable HELENA, OSEI R Referring Unavailable [facility] Primary Care Unavailable HELENA, OSEI Attending Unavailable HELENA, OSEI Attending Unavailable SHIRLEY, CELESTE E Attending Unavailable SHIRLEY, CELESTE E Attending Unavailable JB MANDUJANO Attending Unavailable JB MANDUJANO Attending Unavailable CAMILLA GASTON Attending Unavailable HELENA, OSEI Attending Unavailable FLORI GIL Attending Unavailable FLORI GIL Attending Unavailable CAMILLA GASTON Attending Unavailable HELENA, OSEI Attending Unavailable HELENA, OSEI Attending Unavailable HELENA, OSEI Attending Unavailable Allergies Allergy Classification Reported Allergen(s) Allergy Type Date of Onset Reaction(s) Facility Acetaminophen / oxyCODONE (1 source) Acetaminophen / oxyCODONE; Translations: [acetaminophen-o xycodone] Drug Allergy [facility] Comment on above: no narcotics, GI ups et Chlorhexidine (1 source) Chlorhexidine; Translations: [chlorhexidine topical] Drug Allergy Itching [facility] Corticosteroids (1 source) predniSONE; Translations: [prednisone] Drug Allergy [facility] (15 sources) Morphinan opioid; Translations: [OPIOIDS - MORPHINE ANALOGUES] Propensity to adverse reactions to drug 01-26-20 Other: See Comments [facility] (20 sources) predniSONE; Translations: [predniSONE] Drug Allergy 01-26-20 Other: See Comments, Dizziness [facility] (20 sources) prednisoLONE; Translations: [prednisolone] Drug Allergy 01-11-20 22 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 (3 sources) Acetaminophen / oxyCODONE; Translations: [Percocet] Drug Allergy [facility] (4 sources) Chlorhexidine; Translations: [chlorhexidine topical] Drug Allergy Itching [facility] (7 sources) Acetaminophen / oxyCODONE; Translations: [acetaminophen-o xycodone] Drug Allergy 07-07-20 24 GI Disturbance [facility] Comment on above: no narcotics, GI ups et (20 sources) Acetaminophen / oxyCODONE; Translations: [OXYCODONE-ACETA MINOPHEN] Drug Allergy 02-26-20 24 [facility] (20 sources) Chlorhexidine; Translations: [CHLORHEXIDINE] Drug Allergy 02-21-20 23 Itching [facility] Healthcare Work Phone: (20 sources) Fludrocortisone; Translations: [FLUDROCORTISONE ] Drug Allergy 07-26-20 22 Nausea [facility] (20 sources) Prednisone Allergy to substance 02-18-20 23 Dizziness [facility] (1 source) predniSONE Drug Allergy 06-08-20 23 [facility] Medications Current Medications Medication Drug Class(es) Dates Sig (Normalized) Sig (Original) [id number] 200 actuat albuterol 0.09 mg/actuat metered dose inhaler (20 sources) beta2-Adrenergic Agonist Start: 08-27-2024 take 2 puff(s) by inhalation every four hours for wheezing albuterol HFA 90 mcg/act inhaler Indications: Mild intermittent asthma with acute exacerbation ([facility]) Inhale 2 puffs every 4 (four) hours [...] this medication. 14 tablet 08/07/2024 08/14/2024 Active [place] (No Known Home Meds) (1 source) Start: [place] (No Known Home Meds) Active June 08, 2023 12:00am omeprazole 40 mg delayed release oral capsule (20 sources) Proton Pump Inhibitor Start: End: 02-05-2 026 take 1 capsule by mouth before mealtime [...] crush or chew.. 30 capsule 11 08/05/2024 10/29/2024 Discontinued (Ineffective) Start: 12-11-2023 take 1 capsule by mo uth once daily omeprazole 40 mg Cap-DR 40 mg = 1 cap(s), Oral, Daily, # 30 cap(s), Refills(s) 1, Pharmacy: [facility], 168.3, cm, 12/11/23 13:07:00 EDT, Height/Length [...] 1 tablet by mouth Daily 30 tablet 07/07/2024 07/07/2025 Active Start: 06-06-2024 End: 06-06-2025 [...] Start: 08-01-2022 take 1 capsule by mo [facility] three times daily Droxidopa 100 [...] daily Quantity: 30 Refills: 6 Ordered: 13-Jun-2023 Brunson Jadiel TURNER-Tabatha GOODSON Start : 13-Jun-2023 Active methotrexate 2.5 [...] Start: 07-10-2022 take 0.5 tablet by [facility] three times daily Midodrine HCl - [...] tolerance complicating ; childbirth; or the puerperium (19 sources) Gestational diabetes mellitus; Translations: [Gestational diabetes [...] respiratory system complicating , unspecified trimester] Onset: Episodic Other connective tissue disease (2 sources) [...] of vagina] 08-05-2024 Episodic Other gastrointestinal disorders (4 sources) Heartburn; Translations: [Heartburn] 08-05-2024 Episodic Other [...] of ] 09-18-2024 Episodic Residual codes; unclassified (19 sources) Gestation period, 29 weeks; Translations: [29 weeks gestation of ] Onset: 5 10-02-2024 Episodic Residual codes; unclassified (1 source) 20 weeks gestation of ; Translations: [20 weeks gestation of ] Onset: 4 Episodic Residual codes; unclassified (2 sources) Gestation period, 31 weeks; Translations: [31 weeks gestation of ] 10-29-2024 Episodic Superficial injury; contusion (7 sources) Contusion [...] Panel InformationOrdered By: Radiologist Radiology on 10-30-2024 [facility] Work Phone: No Panel Informationon 10-30 Radiology Study observation (narrative) [facility] OB BPP W NON-STRESS on 10-30-[address] [address] Ultrasound Report Signed Patient: MADYSON MAI MR#: [id number] : 2000 Acct:[id number] Age/Sex: 23 / F ADM Date: 10/29/24 Loc: US Attending Dr: Osei Malik D.O. Ordering Physician: Osei Malik D.O. Date of Service: 10/29/24 Procedure(s): US OB BPP w non-stress Accession Number(s): [id number] cc: JB MANDUJANO ; Osei Malik D.O. [place] [address] Patient Name: MADYSON MAI MRN: [facility]:[id number] date: 2000 Sex: F Assigned Patient Location: [facility] Current Patient Location: Accession/Order Number: [id number] Exam Date: 10/29/2024 17:40 Report Date: 10/30/2024 [...] Signed By: 10/30/24 0733 DD/ 9 TD/TT: Veterinary Hospital Attendant: [facility] Radiology, Radiologi MD billy - 10/30/2024 [place] [address] Ultrasound Report Signed Patient: MADYSON MAI MR#: [id number] : 2000 Acct:[id number] Age/Sex: 23 / F ADM Date: 10/29/24 Loc: US Attending Dr: Osei Malik D.O. Ordering Physician: Osei Malik D.O. Date of Service: 10/29/24 Procedure(s): US OB BPP w non-stress Accession Number(s): [id number] cc: JB MANDUJANO ; Osei Malik D.O. The [address] [address] Patient Name: MADYSON MAI MRN: H:[id number] date: 2000 Sex: F Assigned Patient Location: [facility] Current Patient Location: Accession/Order Number: [id number] Exam Date: 10/29/2024 17:40 Report Date: 10/30/2024 [...] M.D. Signed By: 10/30/2433 DD/ 9 TD/TT: Veterinary Hospital Attendant: [place] [address] Ultrasound Report Signed Patient: MADYSON MAI MR#: [id number] : 2000 Acct:[id number] Age/Sex: 23 / F ADM Date: 10/29/24 Loc: US Attending Dr: Osei Malik D.O. Ordering Physician: Osei Malik D.O. Date of Service: 10/29/24 Procedure(s): US OB BPP w non-stress Accession Number(s): [id number] cc: JB MANDUJANO ; Osei Malik D.O. [place] [address] Patient Name: MADYSON MAI MRN: [facility]:[id number] date: 2000 Sex: F Assigned Patient Location: [facility] Current Patient Location: Accession/Order Number: [id number] Exam Date: 10/29/2024 17:40 Report Date: 10/30/2024 [...] M.D. Signed By: 10/30/2433 DD/ 9 TD/TT: Veterinary Hospital Attendant: [facility] Radiology, Radiologyelitza cervantes MD - 10/30/2024 [place] [address] Ultrasound Report Signed Patient: MADYSON MAI MR#: [id number] : 2000 Acct:[id number] Age/Sex: 23 / F ADM Date: 10/29/24 Loc: US Attending Dr: Osei Malik D.O. Ordering Physician: Osei Malik D.O. Date of Service: 10/29/24 Procedure(s): US OB BPP w non-stress Accession Number(s): [id number] cc: JB MANDUJANO ; Osei Malik D.O. The [place] [id number] Patient Name: MADYSON MAI MRN: [facility]:[id number] date: 2000 Sex: F Assigned Patient Location: [facility] Current Patient Location: Accession/Order Number: [id number] Exam Date: 10/29/2024 17:40 Report Date: 10/30/2024 [...] M.D. Signed By: 10/30/2433 DD/ 9 TD/TT: Veterinary Hospital Attendant: [facility] Urinalysis macro (dipstick) panel (U)on 10-29-2024 Bilirubin, UA Negative Negative - 4(70) +++ mg/dL [facility] Blood, UA Negative Negative - 50 Vasu/mcL [facility] Clarity, UA Clear [facility] Color, UA Yellow [facility] Glucose, UA Positive Negative - 1999(110) ++++ mg/dL [facility] Comment on above: 100 MG Interpretation and review of laboratory results Abnormal [facility] Ketones, UA Negative Negative - 160(16) ++++ mg/dL [facility] Leukocytes, UA Positive Negative - 500+++ Conrad/mcL [facility] Comment on above: SMALL Nitrite, UA Negative Negative - Positive [facility] pH, UA 7 5 - 9 [facility] Protein, UA Negative Negative - 2000(20) ++++ mg/dL [facility] Spec Grav, UA 1.01 1 - 1.03 [facility] Urobilinogen, UA 0.2 0.2 - 12 mg/dL [facility] CTA Chest vessels WO and W c ontrast Luiz 10-27-2024 [place] [address] CT Scan Report Signed Patient: MADYSON MAI MR#: [id number] : 2000 Acct:[id number] Age/Sex: 23 / F ADM Date: Loc: [facility] 251-[address]: Osei Malik D.O. Ordering Physician: Osei Malik D.O. Date of Service: 10/27/24 Procedure(s): CT angio chest Accession Number(s): [id number] cc: JB MANDUJANO The [place] [id number] Patient Name: MADYSON MAI MRN: [facility]:[id number] date: 2000 Sex: F Assigned Patient Location: [facility] Current Patient Location: [facility] Accession/Order Number: [id number] Exam Date: 10/27/2024 15:20 Report Date: 10/27/2024 [...] Signed By: 10/27/24 1556 DD/ 1554 TD/TT: Veterinary Hospital Attendant: [facility] RadiologyIshaanogyelitza cervantes MD - 10/27/[address] [address] [address] Scan Report Signed Patient: MADYSON MAI MR#: [id number] : 2000 Acct:[id number] Age/Sex: 23 / F ADM Date: Loc: [facility] 251-[address]: Osei Malik D.O. Ordering Physician: Osei Malik D.O. Date of Service: 10/27/24 Procedure(s): CT angio chest Accession Number(s): [id number] cc: JB MANDUJANO [place] [address] Patient Name: MADYSON MAI MRN: [facility]:[id number] date: 2000 Sex: F Assigned Patient Location: [facility] Current Patient Location: [facility] Accession/Order Number: [id number] Exam Date: 10/27/2024 15:20 Report Date: 10/27/2024 [...] Signed By: 10/27/24 1556 DD/ 1554 TD/TT: Veterinary Hospital Attendant: [facility] [employer] Radiology Study observation (narrative) [facility] CTA Chest vessels WO and W c ontrast IVOrdered By: Radiologist Radiology on 10-27-2024 [facility] Healthcare Work Phone: ECG 12-LEADon 10-27-2024 [place] [address] Electrocardiograph Report Signed Patient: MADYSON MAI MR#: [id number] : 2000 Acct:[id number] Age/Sex: 23 / F ADM Date: Loc: [place] [address]: Osei Malik D.O. Ordering Physician: Osei Malik D.O. Date of Service: 10/27/24 Procedure(s): ECG 12 lead Accession Number(s): [id number] cc: [facility] Test Date: 2024-10-27 Pat Name: MADYSON MAI Department: Room: [facility] Gender: Female Welder Tack: : 2000 Requested By: OSEI MALIK Order Number: [id number] Reading MD: SURYA MEJÍA Measurements Intervals [place] Rate: 98 P: 36 HI: 153 QRS: 19 QRSD: 98 T: 28 QT: 353 QTc: 451 Interpretive Statements SINUS RHYTHM No previous ECG available for comparison Electronically Signed On 10-27-2024 20:49:34 EST by SURYA MEJÍA Dictated By: Surya Mejía D.O. Signed By: 10/27/24 204 DD/ 1555 TD/TT: Veterinary Hospital Attendant: [facility] Radiology, Radiologi MD billy - 10/27/2024 [place] [address] Electrocardiograph Report Signed Patient: MADYSON MAI MR#: [id number] : 2000 Acct:[id number] Age/Sex: 23 / F ADM Date: Loc: [facility] [address]: Osei Malik D.O. Ordering Physician: Osei Malik D.O. Date of Service: 10/27/24 Procedure(s): ECG 12 lead Accession Number(s): [id number] cc: [facility] Test Date: 2024-10-27 Pat Name: MADYSON MAI Department: Room: [facility] Gender: Female Welder Tack: : 2000 Requested By: OSEI MALIK Order Number: [id number] Reading MD: SURYA MEJÍA Measurements Intervals [place] Rate: 98 P: 36 HI: 153 QRS: 19 QRSD: 98 T: 28 QT: 353 QTc: 451 Interpretive Statements SINUS RHYTHM No previous ECG available for comparison Electronically Signed On 10-27-2024 20:49:34 EST by SURYA MEJÍA Dictated By: Surya Mejía D.O. Signed By: 10/27/242048 DD/ 54 TD/TT: Veterinary Hospital Attendant: [facility] Radiology Study observation (narrative) [facility] ECG 12-LEADOrdered By: Radio logist Radiology on 10-27-2024 [facility] Work Phone: [facility] UA (CLEAN/CATCH) DEPUTY CHIEF COUNSEL/YOUSIF RO IF IND.on 10-27-2024 BILIRUBIN URINE Negative NEGATIVE [facility] Healthcare BLOOD URINE Negative NEGATIVE [facility] Clarity (U) CLEAR CLEAR [facility] Healthcare Color (U) LT. YELLOW YELLOW [facility] GLUCOSE URINE UA 500 mg/dL Abnormal NEGATIVE [facility] Interpretation and review of laboratory results Abnormal [facility] Ketones Ql (U) Negative NEGATIVE mg/dL [facility] Leukocyte esterase Test strip Ql (U) SMALL Abnormal NEGATIVE [facility] NITRITE URINE Negative NEGATIVE [facility] pH (U) 6.5 [pH] 5.0 - 9.0 [facility] PROTEIN URINE Negative NEG/TRACE mg/dL [facility] SPECIFIC GRAVITY URINE 1.020 1.005 - 1.025 [facility] URINE MICROSCOPIC INDICATED YES [facility] UROBILINOGEN URINE 1.0 EU/dL 0.2 - 1.0 EU/dL [facility] No Panel InformationOrdered By: Radiologist Radiology on 10-23-2024 [facility] Healthcare Work Phone: No Panel Informationon 10-23 Radiology Study observation (narrative) [facility] US OB BPP W NON-STRESS on 10-23-[address] [address] Ultrasound Report Signed Patient: MADYSON MAI MR#: [id number] : 2000 Acct:[id number] Age/Sex: 23 / F ADM Date: 10/22/24 Loc: US Attending Dr: Osei Malik D.O. Ordering Physician: Osei Malik D.O. Date of Service: 10/22/24 Procedure(s): US OB BPP w non-stress Accession Number(s): [id number] cc: JB MANDUJANO ; Osei Malik D.O. [place] [address] Patient Name: MADYSON MAI MRN: [facility]:[id number] date: 2000 Sex: F Assigned Patient Location: [facility] Current Patient Location: Accession/Order Number: [id number] Exam Date: 10/22/2024 17:05 Report Date: 10/23/2024 [...] Signed By: 10/23/24 0745 DD/ 0742 TD/TT: Veterinary Hospital Attendant: [facility] Radiology, Radiologi MD billy - 10/23/2024 [place] [address] Ultrasound Report Signed Patient: MADYSON MAI MR#: [id number] : 2000 Acct:[id number] Age/Sex: 23 / F ADM Date: 10/22/24 Loc: US Attending Dr: Osei Malik D.O. Ordering Physician: Osei Malik D.O. Date of Service: 10/22/24 Procedure(s): US OB BPP w non-stress Accession Number(s): [id number] cc: JB MANDUJANO ; Osei Malik D.O. The [place] [address] Patient Name: MADYSON MAI MRN: [facility]:[id number] date: 2000 Sex: F Assigned Patient Location: [facility] Current Patient Location: Accession/Order Number: [id number] Exam Date: 10/22/2024 17:05 Report Date: 10/23/2024 [...] Signed By: 10/23/24 0745 DD/ 0742 TD/TT: Veterinary Hospital Attendant: [place] [address] Ultrasound Report Signed Patient: MADYSON MAI MR#: [id number] : 2000 Acct:[id number] Age/Sex: 23 / F ADM Date: 10/22/24 Loc: US Attending Dr: Osei Malik D.O. Ordering Physician: Osei Malik D.O. Date of Service: 10/22/24 Procedure(s): US OB BPP w non-stress Accession Number(s): [id number] cc: JB MANDUJANO ; Osei Malik D.O. [place] [address] Patient Name: MADYSON MAI MRN: [facility]:[id number] date: 2000 Sex: F Assigned Patient Location: [facility] Current Patient Location: Accession/Order Number: [id number] Exam Date: 10/22/2024 17:05 Report Date: 10/23/2024 [...] Small M.D. Signed By: 10/23/24 0745 DD/ TD/TT: Veterinary Hospital Attendant: [facility] Radiology, Radiologyelitza cervantes MD - 10/23/2024 The [place] [id number] Ultrasound Report Signed Patient: MADYSON MAI MR#: [id number] : 2000 Acct:[id number] Age/Sex: 23 / F ADM Date: 10/22/24 Loc: US Attending Dr: Osei Malik D.O. Ordering Physician: Osei Malik D.O. Date of Service: 10/22/24 Procedure(s): US OB BPP w non-stress Accession Number(s): [id number] cc: BJ MANDUJANO ; Osei Malik D.O. [address] [address] Patient Name: MADYSON MAI MRN: [facility]:[id number] date: 2000 Sex: F Assigned Patient Location: [facility] Current Patient Location: Accession/Order Number: [id number] Exam Date: 10/22/2024 17:05 Report Date: 10/23/2024 [...] Signed By: 10/23/24 0745 DD/ 0742 TD/TT: Veterinary Hospital Attendant: [facility] Urinalysis macro (dipstick) panel (U)on 10-15-2024 Bilirubin, UA Negative Negative - 4(70) +++ mg/dL [facility] Blood, UA Negative Negative - 50 Vasu/mcL [facility] Clarity, UA Clear [facility] Color, UA Yellow [facility] Glucose, UA Positive Negative - 1999(110) ++++ mg/dL [facility] Comment on above: 500 Interpretation and review of laboratory results Abnormal [facility] Ketones, UA Negative Negative - 160(16) ++++ mg/dL [facility] Leukocytes, UA Positive Negative - 500+++ Conrad/mcL [facility] Comment on above: small Nitrite, UA Negative Negative - Positive [facility] pH, UA 6 5 - 9 [facility] Protein, UA Trace Negative - 1999(20) ++++ mg/dL [facility] Spec Grav, UA 1.02 1 - 1.03 [facility] Urobilinogen, UA 0.2 0.2 - 12 mg/dL [facility] Urinalysis macro (dipstick) panel (U)on 10-02-2024 Bilirubin, UA Negative Negative - 4(70) +++ mg/dL [facility] Blood, UA Negative Negative - 50 Vasu/mcL [facility] Clarity, UA Clear [facility] Color, UA Yellow [facility] Glucose, UA Negative Negative - 1999(110) ++++ mg/dL [facility] Interpretation and review of laboratory results Abnormal [facility] Ketones, UA Positive Negative - 160(16) ++++ mg/dL [facility] Comment on above: 40 Leukocytes, UA Trace Negative - 500+++ Conrad/mcL [facility] Nitrite, UA Negative Negative - Positive [facility] pH, UA 6 5 - 9 [facility] Protein, UA Positive Negative - 2000(20) ++++ mg/dL [facility] Comment on above: 30 Spec Grav, UA 1.03 1 - 1.03 [facility] Urobilinogen, UA 0.2 0.2 - 12 mg/dL [facility] UA (CLEAN/CATCH) DEPUTY CHIEF COUNSEL/YOUSIF RO IF IND.on 09-25-2024 BILIRUBIN URINE Negative NEGATIVE [facility] BLOOD URINE Negative NEGATIVE [facility] Clarity (U) CLEAR CLEAR [facility] Color (U) LT. YELLOW YELLOW [facility] GLUCOSE URINE UA 250 mg/dL Abnormal NEGATIVE [facility] Interpretation and review of laboratory results Abnormal [facility] Healthcare Ketones Ql (U) Negative NEGATIVE mg/dL [facility] Leukocyte esterase Test strip Ql (U) SMALL Abnormal NEGATIVE [facility] NITRITE URINE Negative NEGATIVE [facility] pH (U) 6.0 [pH] 5.0 - [facility] PROTEIN UR[facility] Negative NEG/TRACE mg/dL [facility] SPECIFIC GRAVITY URINE 1.020 1.005 - 1.025 [facility] URINE MICROSCOPIC INDICATED YES [facility] UROBILINOGEN URINE 0.2 EU/dL 0.2 - 1.0 EU/dL [facility] Urine Cultureon 09-25-2024 Bacteria identified Cx Nom (U) <9,000 colonies/ml mixed bacterial skin contaminants 2 Days PERFORMED BY: [place] [address] PATHOLOGIST ON CALL KARMA BUCK M.D. Normal The [facility] Comment on above: Performed By: #### C UU #### [address] Urinalysis macro (dipstick) panel (U)on 09-18-2024 Bilirubin, UA Negative Negative - 4(70) +++ mg/dL [facility] Blood, UA Negative Negative - 50 Vasu/mcL [facility] Clarity, UA Clear [facility] Color, UA Yellow [facility] Glucose, UA Positive Negative - 1999(110) ++++ mg/dL [facility] Comment on above: 100 Interpretation and review of laboratory results Abnormal [facility] Ketones, UA Negative Negative - 160(16) ++++ mg/dL [facility] Leukocytes, UA Positive Negative - 500+++ Conrad/mcL [facility] Comment on above: small Nitrite, UA Negative Negative - Positive [facility] pH, UA 7 5 - 9 [facility] Protein, UA Trace Negative - 1999(20) ++++ mg/dL [facility] Spec Grav, UA 1.02 1 - 1.03 [facility] Urobilinogen, UA 0.2 0.2 - 12 mg/dL [facility] Urinalysis macro (dipstick) panel (U)on 09-03-2024 Bilirubin, UA Negative Negative - 4(70) +++ mg/dL [facility] Blood, UA Negative Negative - 50 Vsau/mcL [facility] Clarity, UA Clear [facility] Color, UA Yellow [facility] Glucose, UA Many Negative - 2000(110) ++++ mg/dL [facility] Interpretation and review of laboratory results Abnormal [facility] Ketones, UA Positive Negative - 160(16) ++++ mg/dL [facility] Leukocytes, UA Positive Negative - 500+++ Conrad/mcL [facility] Nitrite, UA Negative Negative - Positive [facility] pH, UA 6.5 5 - 9 [facility] Protein, UA Moderate Negative - 2000(20) ++++ mg/dL [facility] Spec Grav, UA 1.025 1 - 1.03 [facility] Urobilinogen, UA 0.2 0.2 - 12 mg/dL [facility] GLUCOSE TOLERANCE 3 HOURon 1 11-02-2023 GLUCOSE TOLERANCE 3 HOUR High mg/dL [facility] Comment on above: GLU FAST 86 (<95) Co l: 09/01/24 0818 GLU 1HR 162 (<180) Col: 09/01/24 0919 GLU 2HR 156H (<155) Col: 09/01/24 1019 GLU 3HR 110 (<140) Col: 09/01/24 1119 Interpretation and review of laboratory results Abnormal [facility] ALL CBC WITH AUTO DIFFon BASOPHILS ABSOLUTE AUTO 0 [facility] Basophils/100 WBC (Bld) 0.2 % 0.2 - 2.0 % [facility] Eosinophils/100 WBC (Bld) 0.7 % Low 0.9 - 7.0 % [facility] Erythrocyte distribution width (RBC) [Ratio] 13.6 % 11.0 - 15.0 % [facility] Hematocrit (Bld) [Volume fraction] 32.9 % Low 36.0 - 48.0 % [facility] Hemoglobin (Bld) [Mass/Vol] 11.1 g/dL Low 12.0 - 16.0 g/dL [facility] IMMATURE GRANULOCYTES ABS AUTO 0.11 High [facility] Immature granulocytes/100 WBC (Bld) 1.1 % High 0.0 - 0.5 % [facility] Interpretation and review of laboratory results Abnormal [facility] LYMPHOCYTES ABSOLUTE AUTO 1.3 [facility] Lymphocytes/100 WBC (Bld) 13 % Low 20.5 - 60.0 % [facility] MCH (RBC) [Entitic mass] 29.6 pg 26.7 - 34.0 pg [facility] MCHC (RBC) [Mass/Vol] 33.7 g/dL 29.9 - 35.2 g/dL [facility] MCV (RBC) [Entitic vol] 87.7 fL 81.0 - 99.0 fL [facility] MONOCYTES ABSOLUTE AUTO 0.6 [facility] Monocytes/100 WBC (Bld) 5.5 % 1.7 - 12.0 % [facility] NEUTROPHILS ABSOLUTE AUTO 7.9 High [facility] Neutrophils/100 WBC (Bld) 79.5 % High 43.0 - 75.0 % [facility] Platelet mean volume (Bld) [Entitic vol] 10.3 fL 9.5 - 13.5 fL [facility] TBH EO # 0.1 [facility] PLT [address] [facility] RBC 3.75 Low [facility] WBC 9.9 [facility] IGP,APTIMA HPV,AGE GDLNon AGE GDLN ACOG TESTING Note . [facility] Comment on above: TESTS RESULT FLAG UN ITS REF RANGE LAB Clinician Provided Cytology Information Source.............Cervix No. of containers..01 ThinPrep Vial Age Algo ACOG Maureen... FLAG LEGEND: L-Low Normal,H-High Normal,LL-Alert Low,HH-Alert High <-Panic Low,>-Panic High,A-Abnormal,AA-Critical Abnormal Performed at: 01 =G [address] [place] [address] Toya Wilson MD, IGP, RFX APTIMA HPV ASCU Note . [facility] Comment on above: TESTS RESULT FLAG U NITS REF RANGE LAB DIAGNOSIS: 02 NEGATIVE FOR INTRAEPITHELIAL LESION OR MALIGNANCY. Specimen adequacy: 02 Satisfactory for evaluation. No endocervical component is identified. Performed by: 02 Imelda Miranda Cell Builder (ASCP) . 02 Note: Note 02 The [...] <-Panic Low,>-Panic High,A-Abnormal,AA-Critical Abnormal Performed at: [address] [id number] Toya Wilson MD, Performed at: =G - [address] [id number] [employer] Analyst: Toya Wilson MD, Phone: [phone] Performed at: - [address] [id number] [employer] Analyst: Toya Wilson MD, Phone: [phone] SPATULA-ALONE CERVIX [facility] AFP, SERUM, OPEN SPINA BIFID Aon 08-13-2024 AFP MOM 2.24 . [facility] AFP VALUE 103.1 ng/mL . [facility] COMMENT: Comment . [facility] Comment on above: Joyce Reina , Ph.D., [facility] Director References: Available Upon Request. Multiples Of Median Cutoffs For AFP Elevations Harrington 2.5 Black 2.8 IDD 2.0 Twins 4.5 Abbreviation Definitions IDD - Insulin Dep Diabetes OSBR - Open Spina Bifida Risk For further inquiries contact [facility] at [phone]. This test was developed and its performance characteristics determined by [facility]. It has not been cleared or approved by the Food and Drug Administration. Performed at: [facility] [address] [place], [place] [id number] [employer] Analyst: Angel Regan [facility], Phone: [phone] GEST. AGE ON COLLECTION DATE 20.3 . weeks [facility] GESTAT. AGE BASED ON LMP . [facility] Comment on above: Recalculations are n ot recommended when gestational dating by LMP and ultrasound are within 10 days. INSULIN DEP DIABETES No . [facility] INTERPRETATION Comment . [facility] Comment on above: Interpretation: Scre en [...] Customer Services to discuss available options. The [employer] recommends amniocentesis be offered to women age 35 and older. [age] [facility] MULTIPLE GESTATION Twins . [facility] OSBR RISK 1 IN 1081 . [facility] RACE . [facility] RESULTS Report . [facility] TEST RESULTS: Negative . [facility] WEIGHT 219 . lbs [facility] N N LMP [id number] 3 19 N 2 Y 219 N N N N N White/ [facility] US for pregnancyon 4 THIS EXAM WAS PERFOR MED AT [facility] Coding ====== Procedures 31444: Comprehensive Detailed Anatomy Ultrasound 30013: Comprehensive Detailed Anatomy Ultrasound- Additional Fetus [id number]: Transvaginal Ultrasound (OB) Indication ======== Di-Di twin [...] 0 lb 13 oz EFW by Hadlock ([id number]) EFW discordance 10.9 % Head / Face / Neck Biometry: Cephalic index 0.81 73% Nicolaides Play Therapist 6.4 mm CM 4.4 mm 26% Nicolaides [...] 0 lb 14 oz EFW by Hadlock ([id number]) EFW discordance 10.9 % Head / Face / Neck Biometry: Cephalic index 0.71 1% Nicolaides Play Therapist 6.8 mm CM 4.3 mm 23% Nicolaides [...] Heart / Th (more content not included)... [facility] Radiology, Radiologyelitza cervantes MD - 08/13/2024 THIS EXAM WAS PERFORMED AT [facility] Coding ====== Procedures 96013: Comprehensive Detailed Anatomy Ultrasound 27688: Comprehensive Detailed Anatomy Ultrasound- Additional Fetus [id number]: Transvaginal Ultrasound (OB) Indication ======== Di-Di twin [...] 0 lb 13 oz EFW by Hadlock ([id number]) EFW discordance 10.9 % Head / Face / Neck Biometry: Cephalic index 0.81 73% Nicolaides Play Therapist 6.4 mm CM 4.4 mm 26% Nicolaides [...] 0 lb 14 oz EFW by Hadlock ([id number]) EFW discordance 10.9 % Head / Face / Neck Biometry: Cephalic index 0.71 1% Nicolaides Play Therapist 6.8 mm CM 4.3 mm 23% Nicolaides [...] Heart / Thorax 4-chamber view. 3-vessel view. 1-kdqgpo-jtuugsp view. Interventricular septum. Diaphragm. Abdomen Right renal [...] Nuchal fold. F (more content not included)... [facility] Radiology Study observation (narrative) [facility] US for pregnancyOrdered By: Radiologist Radiology on 08-13-2024 [facility] Work Phone: RECURRENT VAGINITIS (HTRX)on 08-07-2024 ATOPOBIUM VAGINAE 29.356 Abnormal [facility] ATOPOBIUM VAGINAE Detected Abnormal [facility] BVAB 2,3 (BACTERIAL VAGINOSIS ASSOCIATED BACTERIA 2, 3); MOBILUNCUS SPP 0 [facility] BVAB 2,3 (BACTERIAL VAGINOSIS ASSOCIATED BACTERIA 2, 3); MOBILUNCUS SPP Not detected [facility] SANTHOSH ALBICANS, PARAPSILOSIS, TROPICALIS 0 [facility] SANTHOSH ALBICANS, PARAPSILOSIS, TROPICALIS Not detected [facility] SANTHOSH GLABRATA 0 [facility] SANTHOSH GLABRATA Not detected [facility] SANTHOSH KRUSEI 0 [facility] SANTHOSH KRUSEI Not detected [facility] CHLAMYDIA TRACHOMATIS 0 [facility] CHLAMYDIA TRACHOMATIS Not detected [facility] GARDNERELLA VAGINALIS 0 [facility] GARDNERELLA VAGINALIS Not detected [facility] Interpretation and review of laboratory results Abnormal [facility] MEGASPHAERA (TYPES 1, 2) 0 [facility] MEGASPHAERA (TYPES 1, 2) Not detected [facility] MYCOPLASMA GENITALIUM 0 [facility] MYCOPLASMA GENITALIUM Not detected [facility] NEISSERIA GONORRHOEAE 0 [facility] NEISSERIA GONORRHOEAE Not detected [facility] TRICHOMONAS VAGINALIS 0 [facility] TRICHOMONAS VAGINALIS Not detected N [facility] Urinalysis macro (dipstick) panel (U)on 08-05-2024 Bilirubin, UA Negative Negative - 4(70) +++ mg/dL [facility] Blood, UA Negative Negative - 50 Vasu/mcL [facility] Clarity, UA Clear [facility] Color, UA Yellow [facility] Glucose, UA Negative Negative - 1999(110) ++++ mg/dL [facility] Interpretation and review of laboratory results Normal [facility] Ketones, UA Negative Negative - 160(16) ++++ mg/dL [facility] Leukocytes, UA Negative Negative - 500+++ Conrad/mcL [facility] Nitrite, UA Negative Negative - Positive [facility] pH, UA 5.5 5 - 9 [facility] Protein, UA Negative Negative - 1999(20) ++++ mg/dL [facility] Spec Grav, UA 1.02 1 - 1.03 [facility] Urobilinogen, UA 1.0 0.2 - 12 mg/dL [facility] Urinalysis macro (dipstick) panel (U)on 07-03-2024 Bilirubin, UA Negative Negative - 4(70) +++ mg/dL [facility] Blood, UA Negative Negative - 50 Vasu/mcL [facility] Clarity, UA Clear [facility] Color, UA Yellow [facility] Glucose, UA Positive Negative - 1999(110) ++++ mg/dL [facility] Comment on above: 500 Interpretation and review of laboratory results Abnormal [facility] Ketones, UA Negative Negative - 160(16) ++++ mg/dL [facility] Leukocytes, UA Negative Negative - 500+++ Conrad/mcL [facility] Nitrite, UA Negative Negative - Positive [facility] pH, UA 6.0 5 - 9 [facility] Protein, UA Negative Negative - 1999(20) ++++ mg/dL [facility] Spec Grav, UA 1.015 1 - 1.03 [facility] Urobilinogen, UA 0.2 0.2 - 12 mg/dL [facility] Urinalysis macro (dipstick) panel (U)Ordered By: Ibis Sandoval on 06-04-2024 Bilirubin, UA Negative Negative - 4(70) +++ mg/dL [facility] Blood, UA Positive Negative - 50 Vasu/mcL [facility] Comment on above: trace-intact Clarity, UA Clear [facility] Color, UA Yellow [facility] Glucose, UA Negative Negative - 1999(110) ++++ mg/dL [facility] Interpretation and review of laboratory results Abnormal [facility] Ketones, UA Negative Negative - 160(16) ++++ mg/dL [facility] Leukocytes, UA Trace Negative - 500+++ Conrad/mcL [facility] Nitrite, UA Negative Negative - Positive [facility] pH, UA 5.5 5 - 9 [facility] Protein, UA Negative Negative - 1999(20) ++++ mg/dL [facility] Spec Grav, UA 1.005 1 - 1.03 [facility] Urobilinogen, UA 0.2 0.2 - 12 mg/dL [facility] ALL CBC WITH AUTO DIFFon BASOPHILS ABSOLUTE AUTO 0.0 [facility] Basophils/100 WBC (Bld) 0.5 % 0.2 - 2.0 % [facility] Eosinophils/100 WBC (Bld) 0.5 % Low 0.9 - 7.0 % [facility] Erythrocyte distribution width (RBC) [Ratio] 11.9 % 11.0 - 15.0 % [facility] IMMATURE GRANULOCYTES ABS AUTO 0.03 [facility] Immature granulocytes/100 WBC (Bld) 0.4 % 0.0 - 0.5 % [facility] Interpretation and review of laboratory results Abnormal [facility] LYMPHOCYTES ABSOLUTE AUTO 1.8 [facility] Lymphocytes/100 WBC (Bld) 23.3 % 20.5 - 60.0 % [facility] MCH (RBC) [Entitic mass] 29.7 pg 26.7 - 34.0 pg [facility] MCHC (RBC) [Mass/Vol] 34.9 g/dL 29.9 - 35.2 g/dL [facility] MCV (RBC) [Entitic vol] 85.1 fL 81.0 - 99.0 fL [facility] MONOCYTES ABSOLUTE AUTO 0.5 [facility] Monocytes/100 WBC (Bld) 6.3 % 1.7 - 12.0 % [facility] NEUTROPHILS ABSOLUTE AUTO 5.4 [facility] Neutrophils/100 WBC (Bld) 69.0 % 43.0 - 75.0 % [facility] Platelet mean volume (Bld) [Entitic vol] 10.3 fL 9.5 - 13.5 fL [facility] TBH EO # 0.0 [facility] TB PLT 206 [facility] RBC 4.55 [facility] TB WBC 7.8 [facility] Laboratory - Hematology and Cell countson 05-24-2024 Hematocrit (Bld) [Volume fraction] 38.7 % [facility] Hemoglobin (Bld) [Mass/Vol] 13.5 g/dL [facility] No Panel Informationon 05-24 [facility] HCG ( test) Ql (U)o n 05-23-2024 Interpretation and review of laboratory results Abnormal [facility] Preg Test, Ur Positive [facility] Urinalysis macro (dipstick) panel (U)on 05-23-2024 Bilirubin, UA Negative Negative - 4(70) +++ mg/dL [facility] Blood, UA Negative Negative - 50 Vasu/mcL [facility] Clarity, UA Clear [facility] Color, UA Yellow [facility] Glucose, UA Negative Negative - 1999(110) ++++ mg/dL [facility] Interpretation and review of laboratory results Normal [facility] Ketones, UA Negative Negative - 160(16) ++++ mg/dL [facility] Leukocytes, UA Negative Negative - 500+++ Conrad/mcL [facility] Nitrite, UA Negative Negative - Positive [facility] pH, UA 7.0 5 - 9 [facility] Protein, UA Negative Negative - 1999(20) ++++ mg/dL [facility] Spec Grav, UA 1.025 1 - 1.03 [facility] Urobilinogen, UA 1.0 0.2 - 12 mg/dL [facility] CHEMISTRYOrdered By: SYSTEM SYSTEM on 04-12-2024 [...] Progesterone Lvl 31.70 ng/mL Invalid Interpretation Code [facility] Comment on above: Result Comment: 'F N ON FOLLICULAR = 0.10 - 0.60' 'LUTEAL = 3.00 - 17.5' 'MIDLUTEAL = 3.30 - 18.6' 'POST-MENOPAUSE = 0.10 - 0.40' '-FIRST TRIMESTER = 8.30 - 66.5' 'SECOND TRIMESTER = 18.9 - 66.1' 'THIRD TRIMESTER = 35.8 - 312.4' 'MALES = 0.14 - 2.06' Performed By: #### 2 [id number] #### [facility] [address] [place] [address] CHEMISTRYOrdered By: SYSTEM SYSTEM on 03-14-2024 Progesterone [...] Consent for Treatmenton 02-23 Consent for Treatment [id number] Normal [facility] Physician Orderon 03-14-2024 Physician Order [id number] Normal [facility] Progesteroneon 03-14-2024 Progesterone Lvl 16.15 ng/mL Invalid Interpretation Code [facility] Comment on above: Result Comment: 'F N ON FOLLICULAR = 0.10 - 0.60' 'LUTEAL = 3.00 - 17.5' 'MIDLUTEAL = 3.30 - 18.6' 'POST-MENOPAUSE = 0.10 - 0.40' '-FIRST TRIMESTER = 8.30 - 66.5' 'SECOND TRIMESTER = 18.9 - 66.1' 'THIRD TRIMESTER = 35.8 - 312.4' 'MALES = 0.14 - 2.06' Performed By: #### 2 [id number] #### [facility] [address] [place] [address] Ambulatory Visit Summaryon 0 12-11-2023 Ambulatory Visit [...] 11:20 AM EDT With: Krista Daley Where: [facility] Duff Normal [facility] Family Medicine Office/Clini c Noteon 12-11-2023 Family Medicine Office/Clinic Note HPI Staff Madyson is a 23 year old female presenting to [facility] care Establish Care: History: Any previous diagnosis: POTS (11/30/23) History of seeing any specialist: Jyoti Dickey [facility] 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 BMI 33.0-33.9,adult (Z68.33: Body mass index [BMI] 33.0-33.9, adult) BMI education complete Ordered: omeprazole, 40 mg = 1 cap(s), Oral, Daily, # 30 cap(s), Refills(s) 1, Pharmacy: [email or web address], 168.3, cm, 12/11/23 13:07:00 EDT, Height/Length Dosing, 93.6, kg, 12/11/23 13:07:00 EDT, Weight Dosing 3. Class 1 obesity due to excess calories in adult (E66.09: Other obesity due to excess calories) see above Ordered: omeprazole, 40 mg = 1 cap(s), Oral, Daily, # 30 cap(s), Refills(s) 1, Pharmacy: [email or web address], 168.3, cm, 12/11/23 13:07:00 EDT, Height/Length Dosing, 93.6, kg, 12/11/23 13:07:00 EDT, Weight Dosing 4. Nonsmoker (Z78.9: Other specified health status) continue not smoking Ordered: omeprazole, 40 mg = 1 cap(s), Oral, Daily, # 30 cap(s), Refills(s) 1, Pharmacy: [email or web address], 168.3, cm, 12/11/23 13:07:00 EDT, Height/Length [...] 03/05/2002 Recorded (more content not included)... Normal [facility] Comment on above: Result Comment: Elec tronically Signed By: Krista Daley.br\Date and Time Signed: 12/11/23 13:32 EDT CNOVon 11-30-2023 CNOV Office Visit (NENMMN ) ----- MADYSON MAI ([id number]) 2 F Date Time Provider Department 11/30/23 10:00 [facility] your visit today, we recorded the following information about you: Pulse Blood pressure Weight Height 84/minute 118/79 93 kg 1.651 jessica Jyoti Dickey PA-C 11/30/2023 11:14 AM Signed [facility] New Patient Evaluation Madyson M Mariah is a 22 year old right handed female. Patient presents with: New Patient Consult Madyson Charlton Mariah is referred in consultation by Aurora Santiago [...] experienced LOC while walking up the stairs. [place] prodromal symptoms including lightheadedness and tunnel vision. [...] Urination: + (more content not included)... Normal [facility] ECHOon 11-12-2023 Echocardiography Echocardiography Rep ort: Transthoracic Echo [facility] A17 Date of service: 11/12/2023 1:08:10 PM BREWERY Ordering physician: AURORA SANTIAGO Indication: Initial evaluation [...] * * Final * * * CC [employer] : [id number] Normal [facility] CNOVon 10-10-2023 CNOV Office Visit (NEADMN ) ----- MADYSON MAI ([id number]) 2 F Date Time Provider Department 10/10/23 2:00 PM AURORA SANTIAGO During your visit today, we recorded the following information about you: Pulse Blood pressure Weight Height 108/minute 119/85 93 kg 1.651 m Aurora Santiago PA-C 10/10/2023 4:33 PM Signed [facility] New Patient Evaluation [...] on BC (more content not included)... Normal [facility] Quantiferon-TB Plus (Client Incubated)on 07-26-2023 Gamma interferon background IA Qn (Bld) 0.01 International_Unit/mL Invalid Interpretation Code [facility] Comment on above: Performed By: #### 1 [id number], [id number], [id number] #### [facility] [address] [place] [address] M. tuberculosis stim IFN-g by CD4+ CD8+ T-cells Qn (Bld) 0.30 International_Unit/mL Invalid Interpretation Code [facility] Comment on above: Performed By: #### 1 [id number], [id number] #### [facility] [address] [place] [address] M. tuberculosis stim IFN-g by CD4+ T-cells Qn (Bld) 0.23 International_Unit/mL Invalid Interpretation Code [facility] Comment on above: Performed By: #### 1 [id number] #### [facility] [address] [place] [address] M. tuberculosis stim IFN-g Ql (Bld) [Interp] Negative Invalid Interpretation Code Negative [facility] Comment on above: Result Comment: No [...] interferon gamma. Chemiluminescence immunoassay methodology Performed at: [facility] [employer] [id number] PhD Rubio Vinson Performed By: #### 1 [id number], [id number], [id number] #### [facility] [address] [place] [address] Mitogen stimulated gamma interferon Qn (Bld) >10.00 Invalid Interpretation Code [facility] Comment on above: Performed By: #### 1 [id number], [id number], [id number] #### [facility] [address] [place] [address] Service comment (Unsp spec) [Interp] Comment Invalid Interpretation Code [facility] Comment on above: Result Comment: Link [...] for the test. Performed By: #### 1 [id number], [id number], [id number], [id number] #### [facility] [address] [place] [address] Hep Bs Abon 07-25-2023 HBV surface Ab Ql (S) Non-Reactive Invalid Interpretation Code [facility] Comment on above: Result Comment: Non Reactive: Inconsistent with immunity, less than 10 mIU/mL Reactive: Consistent with immunity, greater than 9.9 mIU/mL Performed at: [facility] [id number] PhD Rubio Vinson Performed By: #### 1 [id number], [id number], [id number], [id number] #### [facility] [address] [place] [address] Measles/Mumps/Rubella Immuni tyon 07-25-2023 MeV IgG IA Qn (S) 34.3 A unit/mL Invalid Interpretation Code Immune >16.4 [facility] Comment on above: Result Comment: Nega tive <13.5 Equivocal 13.5 - 16.4 Positive >16.4 Presence of antibodies to Rubeola is presumptive evidence of immunity except when acute infection is suspected. Performed By: #### 1 [id number], [id number], [id number] #### [facility] [address] [place] [address] MuV IgG IA Qn (S) <9.0 Low Immune >10.9 [facility] Comment on above: Result Comment: Nega tive <9.0 Equivocal 9.0 - 10.9 Positive >10.9 A positive result generally indicates past exposure to Mumps virus or previous vaccination. Performed at: [facility] [address] [place], [place] [id number] PhD Rubio Vinson Performed By: #### 1 [id number], [id number], [id number], [id number] #### [facility] Laboratory [address] [place] [address] 22963 Rubella virus IgG Qn (S) 1.53 [IU]/mL Invalid Interpretation Code Immune >0.99 [facility] Comment on above: Result Comment: Non- immune <0.90 Equivocal 0.90 - 0.99 Immune >0.99 Performed By: #### 1 [id number], [id number], [id number], [id number] #### [facility] [address] [place] [address] 51295 Varic IgGon 07-25-2023 VZV IgG IA Qn (S) 475 Invalid Interpretation Code Immune >165 [facility] Comment on above: Result Comment: Nega tive <135 Equivocal 135 - 165 Positive >165 A positive result generally indicates exposure to the pathogen or administration of specific immunoglobulins, but it is not indication of active infection or stage of disease. Performed at: [facility] [address], [place] [id number] PhD Rubio Vinson Performed By: #### 1 [id number], [id number], [id number], [id number] #### [facility] [address] [place] [address] 61086 CNOVon 07-10-2023 CNOV Office Visit (ORFWHP ) ----- MADYSON SCHMID ([id number]) 2 F Date Time Provider Department 07/10/23 9:40 AM JOSE ARMANDO GREY ORFWHP During your visit today, we recorded the following information about you: Jose Armando Grey, 07/10/2023 10:08 AM Signed [facility] Office Visit Documentation Note [facility] Sports Medicine Orthopaedic and Rheumatologic [place] HISTORY OF PRESENT ILLNESS (HPI) CHIEF COMPLAINT / REASON FOR VISIT SERVICE DATE: July 10, 2023 PCP: No primary care provider on file. Madyson Schmid is here today at request of Dr. Jose Armando Schmid specifically for consultation of my opinion in regards to the chief complaint listed below. Correspondence will be shared today via the [employer] electronic health record or through regular mail, [...] expectations. She need to consider PT or personalized living assistant. Reaction knee brace Consider [place] toradol, did discuss orthobiologics Follow up: Films prior to visit: Written instructions (see patient instructions) and verbal health education given to patient. Patient verbalizes understanding and agrees with the treatment plan. Jose Armando Grey D.O. [facility] Orthopaedic and Rheumatologic Senior Ux Developer, [facility] [employer] Program Team Physician, [facility] Baseball Club Consulting Physician, [place] Martin Nagel, Cable Assembler [phone] Referring Provider: SELF [200] Allergies As of [...] Level of (more content not included)... [facility] Tobacco Screening.on 023 Adult depression screening assessment No -[facility] 600 DO Work Phone: Tobacco use status CPHS b) No -[facility] 600 DO Work Phone: Activated partial thrombopla stin time (aPTT) in platelet poor plasma by coagulation aOrdered By: Haris Martino on 06-08-2023 aPTT Coag (PPP) [Time] 28.9 s 25.1-36.5 [facility] Comment on above: A hematocrit value g reater than 55% may lead to inaccurate results in coagulation testing. Patients having hematocrit values >55% require a special collection tube for coagulation studies. Please contact the laboratory at [phone] for redraw instructions. Alanine aminotransferase [En zymatic [...] on 06-08-2023 Bilirubin Ql (U) Negative Negative [facility] Bilirubin.direct [Mass/volum e] in Serum or PlasmaOrdered By: Haris Martino on 06-08-2023 Bilirubin.direct [Mass/Vol] 0.10 mg/dL 0.03-0.18 [facility] Bilirubin.total [Mass/volume ] in Serum or PlasmaOrdered By: Haris Martino on 06-08-2023 Bilirubin [Mass/Vol] 0.4 mg/dL 0.3-1.0 [facility] Calcium [Mass/volume] in Ser um or PlasmaOrdered By: Haris Martino on 06-08-2023 Calcium [Mass/Vol] 9.4 mg/dL 8.6-10.3 [facility] Carbon dioxide, total [Moles /volume] in Serum or PlasmaOrdered By: Haris Martino on 06-08-2023 CO2 [Moles/Vol] 29.3 mmol/L 21.0-31.0 [facility] Chloride [Moles/volume] in S colin or PlasmaOrdered By: Haris Martino on 06-08-2023 Chloride [Moles/Vol] 104 mmol/L 98-107 [facility] Color Auto (U)Ordered By: Terrell Martino on 06-08-2023 Color (U) Yellow Yellow [facility] Creatine kinase [Enzymatic a ctivity/volume] in Serum or PlasmaOrdered By: Haris Martino on 06-08-2023 CK [Catalytic activity/Vol] 55 U/L 30-223 [facility] Creatinine [Mass/volume] in Serum or PlasmaOrdered By: Haris Martino on 06-08-2023 Creatinine [Mass/Vol] 0.64 mg/dL 0.60-1.20 [facility] Eosinophils Auto (Bld) [#/Vo l]Ordered By: [...] coagulation studies. Please contact the laboratory at [phone] for redraw instructions. Globulin Calc (S) [Mass/Vol] Ordered By: Haris Martino on 06-08-2023 Globulin (S) [Mass/Vol] 2.9 g/dL [facility] Glucose [Mass/volume] in Ser um or PlasmaOrdered By: Haris Martino on 06-08-2023 Glucose [Mass/Vol] 79 mg/dL 70-100 [facility] Comment on above: ADA recommended [...] on 06-08-2023 Ketones (U) [Mass/Vol] Negative Negative [facility] Laboratory - UrinalysisOrder ed By: [...] 06-08-2023 MCHC (RBC) [Mass/Vol] 34.2 g/dL 32.0-35.0 [facility] MCV Auto (RBC) [Entitic vol] Ordered [...] (Bld) [#/Vo l]Ordered By: Haris Martino on 09-15-2023 Neutrophils (Bld) [#/Vol] 4.6 10*3/uL 1.8-7.7 [facility] [...] on 06-08-2023 Potassium [Moles/Vol] 4.0 mmol/L 3.5-5.1 [facility] Protein Auto test strip (U) [Mass/Vol]Ordered By: Haris Martino on 06-08-2023 Protein (U) [Mass/Vol] Negative Negative [facility] Protein [Mass/volume] in Ser um or PlasmaOrdered By: Haris Martino on 06-08-2023 Protein [Mass/Vol] 7.5 g/dL 6.4-8.9 [facility] Prothrombin time (PT)Ordered By: Haris Martino on 06-08-2023 PT Coag (PPP) [Time] 12.2 s 9.0-12.9 [facility] Comment on above: A hematocrit value g reater than 55% may lead to inaccurate results in coagulation testing. Patients having hematocrit values >55% require a special collection tube for coagulation studies. Please contact the laboratory at [phone] for redraw instructions. RBC Auto (Bld) [#/Vol]Ordere d By: Haris Martino on 06-08-2023 RBC (Bld) [#/Vol] 4.94 10*6/uL 3.60-5.00 [facility] Serum or plasma albumin/glob ulin mass ratioOrdered By: Haris Martino on 06-08-2023 Albumin/Globulin [Mass ratio] 1.6 {ratio} [facility] Serum or plasma anion gap de terminationOrdered By: Haris Martino on 06-08-2023 Anion gap [Moles/Vol] 9.7 mmol/L 6.0-15.0 [facility] Serum or plasma non-glucuron idated bilirubin measurement (mass/volume)Ordered By: Haris Martino on 06-08-2023 Bilirubin.indirect [Mass/Vol] 0.3 mg/dL [facility] Sodium [Moles/volume] in Ser um or PlasmaOrdered By: Haris Martino on 06-08-2023 Sodium [Moles/Vol] 139 mmol/L 136-145 [facility] Specific gravity Auto test s [...] 06-08-2023 Urea nitrogen [Mass/Vol] 10 mg/dL 04-17 [facility] Urine bacteria detection by automated methodOrdered By: Haris Martino on 06-08-2023 Bacteria Auto Ql (U) 1+ None Seen [facility] Urine clarity by refractomet ry automatedOrdered [...] 06-08-2023 WBC (Bld) [#/Vol] 8.3 10*3/uL 3.8-11.6 [facility] pH Auto test strip (U)Ordere d By: Haris Martino on 06-08-2023 pH (U) 6.5 [pH] 5.0-9.0 [facility] Alanine aminotransferase [En zymatic activity/volume] in Serum or PlasmaOrdered By: Carlitos Nguyen on 04-25-2023 ALT [Catalytic activity/Vol] 18 U/L [facility] Albumin [Mass/volume] in Ser [...] on 04-25-2023 Bilirubin [Mass/Vol] 0.5 mg/dL 0.3-1.0 [facility] Calcium [Mass/volume] in Ser um or PlasmaOrdered By: Carlitos Nguyen on 04-25-2023 Calcium [Mass/Vol] 9.9 mg/dL 8.6-10.3 [facility] Carbon dioxide, total [Moles /volume] in Serum or PlasmaOrdered By: Carlitos Nguyen on 04-25-2023 CO2 [Moles/Vol] 25.9 mmol/L 21.0-31.0 [facility] Chloride [Moles/volume] in S colin or PlasmaOrdered By: Carlitos Nguyen on 04-25-2023 Chloride [Moles/Vol] 105 mmol/L 98-107 [facility] Cholesterol [Mass/volume] in Serum or PlasmaOrdered By: Carlitos Nguyen on 04-25-2023 Cholesterol [Mass/Vol] 208 mg/dL 140-200 [facility] Comment on above: Chol less [...] Calc [Ma ss/Vol]Ordered By: Carlitos Nguyen on 08-02-2023 Cholesterol in VLDL [Mass/Vol] 16 mg/dL [facility] Creatinine [Mass/volume] in Serum or PlasmaOrdered By: Carlitos Nguyen on 04-25-2023 Creatinine [Mass/Vol] 0.81 mg/dL 0.60-1.20 [facility] Globulin Calc (S) [Mass/Vol] Ordered By: Carlitos Nguyen on 04-25-2023 Globulin (S) [Mass/Vol] 2.6 g/dL [facility] Glucose [Mass/volume] in Ser um or PlasmaOrdered By: Carlitos Nguyen on 04-25-2023 Glucose [Mass/Vol] 84 mg/dL 70-100 [facility] No Panel InformationOrdered By: Carlitos Nguyen on 04-25-2023 Estimated GFR (CKD-EPI) > 60.0 mL/Min [facility] Creatinine Clearance (Chem N/A [facility] Potassium [Moles/volume] in Serum or PlasmaOrdered By: Carlitos Nguyen on 04-25-2023 Potassium [Moles/Vol] 4.3 mmol/L 3.5-5.1 [facility] Comment on above: Hemolysis is present at a level that could interfere with the result. Protein [Mass/volume] in Ser um or PlasmaOrdered By: Carlitos Nguyen on 04-25-2023 Protein [Mass/Vol] 7.4 g/dL 6.4-8.9 [facility] Serum or plasma albumin/glob ulin mass ratioOrdered By: Carlitos Nguyen on 04-25-2023 Albumin/Globulin [Mass ratio] 1.8 {ratio} [facility] Serum or plasma anion gap de terminationOrdered By: Carlitos Nguyen on 04-25-2023 Anion gap [Moles/Vol] 12.4 mmol/L 6.0-15.0 [facility] Serum or plasma high density [...] on 04-25-2023 Sodium [Moles/Vol] 139 mmol/L 136-145 [facility] Triglyceride [Mass/volume] i n Serum [...] 04-25-2023 Urea nitrogen [Mass/Vol] 15 mg/dL 7-25 [facility] Tobacco Screening.on 023 Adult depression screening assessment No [facility] 320 DO Work Phone: Fall risk assessment a) No falls within the last year [facility] 320 DO Work Phone: Tobacco use status CPHS b) No [facility] 320 DO Work Phone: Office Visit (Cardiology)on [...] in adult Healthy Weight Tips; Status:Complete; Done: [id number] SocHx: Never a smoker Tobacco Use Screening; Status:Complete; Done: [id number] Patient Instructions Please bring all medicines, vitamins, [...] she did get a second opinion in [facility], and no change in medication was suggested [...] sinus sometime (more content not included)... Normal [place] Tobacco Screening.on 022 Tobacco use status CPHS b) No [facility] 250 DO Work Phone: Cardiovasc Arrhythmia Result son 07-31-2022 Cardiovasc Arrhythmia Results Reason For Visit MADYSON is here for the application of a [employer] monitor. Ordering Physician: Dr. Maza Diagnosis: abn TTT, dyspnea, syncope, autonomic orthostatic hypotension [facility] equipment agreement signed. MADYSON understands monitor is to be returned on: 08/14/22 Monitor number [id number] applied. Procedure Date I received for dictation [...] MD; Aug 28 2022 10:26AM EST Normal [facility] Office Visit (Cardiology)on 07-21-2022 Follow-up visit Diagnoses/Problems [...] contain caffeine.; Status:Complete - Retrospective Authorization; Done: [id number] Begin or continue regular aerobic exercise. Gradually [...] a smoker Tobacco Use Screening; Status:Complete; Done: 29Hhd2886 Patient Instructions Drink plenty of water daily, [...] heart murmur and has been transferred to [facility] There is no family history [...] cardiac data (more content not included)... Normal [place] Tobacco Screening.on 022 Fall risk assessment b) One or more fall s in the last year [facility] 320 DO Work Phone: Tobacco use status CPHS b) No [facility] 320 DO Work Phone: Office Visit (Cardiology)on [...] Done: 10Jul2022 Healthy Weight Tips; Status:Complete; Done: 10Jul2022 Some eating tips that can help you lose weight.; Status:Complete; Done: 35Ilf7357 Dyspnea (786.09) (R06.00) Class 1 obesity with [...] from 6 (more content not included)... Normal [place] Tobacco Screening.on 022 Tobacco use status CPHS b) No -[facility] 250 DO Work Phone: COVID CepheidOrdered By: Daniele Pearce on 06-01-2022 SARS-CoV-2 (COVID-19) Ab IA Ql Negative Negative [facility] Comment on above: This is a duplicate [employer] Xpert Xpress CoV-2/Flu/RSV Plus RNA by RT-PCR [...] in adult Healthy Weight Tips; Status:Complete; Done: 02Bfy6904 Some eating tips that can help you lose weight.; Status:Complete; Done: 14Rge4480 Dyspnea, Syncope, unspecified syncope type Urine Test; Status:Active - Retrospective By Protocol Authorization; Requested for:10Ppp4117; Palpitation Start: Atenolol 25 MG Oral Tablet; TAKE 1 TABLET DAILY Syncope, unspecified syncope type Tilt Table; Status:Hold For - Scheduling,Retrospective By Protocol Authorization; Requested for:14Oui9837; Patient Instructions Please bring all medicines, vitamins, [...] walking to the bathroom. She will see bark spudder in the near future, she had her pulmonary function test which I reviewed, there is concern for chronic asthma, but no reactive airway disease. She has 3 dogs that she had, and 1 cat at home. She is not orthostatic. She is feeling palpitations quite a bit. Results of the pulmonary function test and a [employer]ah [employer] was reviewed. Also reviewed stress test and [...] 3.5 c (more content not included)... Normal [facility] Qualified Tobacco Screening.on 022 Tobacco use status CPHS b) No -[facility] 250 DO Work Phone: No Panel Informationon 05-03 [facility] [facility] DO Work Phone: [facility] [facility] DO Work Phone: Cardiovasc Arrhythmia Result son 03-28-2022 Cardiovasc Arrhythmia Results Reason For Visit Event Monitor: MADYSON is here for the application of a 30 day event monitor in office., Diagnosis: Palps, Dyspnea, Chest pain Ordering Physician: Enrollment sent to: [employer] Monitor number [id number] applied. Holter monitor printed and placed on [...] Date/TimeProviderSpecialt ySite 05/03/2022 10:00 AMMaría Elena Freire MDCardiologySurgermalia [facility] 05/18/2022 09:15 Melodie Sylvester MDCardiology703 [facility] [address] [place] 250 DO Signatures Electronically signed by : Melodie Alcaraz MD; May 01 2022 7:56PM EST (Author) Normal [facility] Laboratory - Chemistry [...] No Panel Informationon 03-24 0.70\S\0.70 Normal 0.45-5.33 -[facility] 250 DO Work Phone: Comment on above: PERFORMED BY:[facility] [place], [place] [phone] MEDICAL DIRECTORJIANLAN SUN M.D. 0.99\S\0.99 Normal 0.61-1.12 -[facility] 250 DO Work Phone: 27.0\S\27.0 Normal 5-100 [facility] 250 DO Work Phone: Comment on above: PERFORMED BY:[facility] [place] [id number] MEDICAL DIRECTOROFE ELLIS M.D. < 200 Normal 0-243 [facility] 250 DO Work [...] in hospitalized patients due to co-morbid conditions.PERFORMED BY:[facility] [address] [place] [phone] MEDICAL JACQUES ELLIS M.D. TSH DL <= 0.005 mIU/L QnOrde red By: Melodie Alcaraz on 03-24-2022 TSH Qn 0.70 m[IU]/L 0.45-5.33 [facility] Thyroxine (T4) free [Mass/vo lume] in Serum or PlasmaOrdered By: Melodie Alcaraz on 03-24-2022 Free T4 [Mass/Vol] 0.99 ng/dL 0.61-1.12 [facility] Office Visit (Cardiology)on 03-23-2022 Follow-up [...] twin brother had to be [facility] to [facility], and has history of heart murmur. Patient [...] frequently pic (more content not included)... Normal [facility] PHQ-2 VITALSon 03-23-2022 Adult depression screening assessment No [facility] 250 DO Work Phone: Fall risk assessment c) Not medically indicated [facility] 250 DO Work Phone: Tobacco use status CPHS b) No [facility] 250 DO Work Phone: ARMANI BY IFA WITH REFLEXon Nuclear Ab IF (S) [Titer] Negative Negative [facility] CCP ANTIBODY IGGon Cyclic citrullinated peptide IgG Qn <15 <20 Units [facility] Cyclic citrullinated peptide IgG Qnon 01-26-2022 CCP Antibody IgG Qualitative Negative Negative [facility] Nuclear Ab IA Ql (S)on 01-26 ARMANI by EIA, Qual Negative Negative [facility] ARMANI BY IFA WITH REFLEXon Nuclear Ab IF (S) [Titer] Negative Normal Negative [facility] Comment on above: Order Comment: Speci men Type: BLOOD SPECIMEN Ordering Facility: [facility] Address: [address] [place] [address] Result Comment: Anti -nuclear antibody test is used as an aid in diagnosis of systemic autoimmune diseases. Where positive and clinically warranted, follow-up using disease-specific testing is recommended. Low positive titers are not uncommon with advanced age, certain chronic infections, and malignancies among others. Test methodology: Indirect fluorescence immunoassay (IFA) using HEp-2 cells. Performed By: #### A NAIFR #### [facility] CLIA [id number] [address] [place], [place] [address] [place] C-REACTIVE PROTEIN (CRP)on 0 01-25-2022 CRP [Mass/Vol] 0.4 mg/dL <0.9 mg/dL [facility] C1 ESTERASE INHIBITon 2021 C1 ESTERASE INHIBIT 26 mg/dL Normal 21-38 [facility] Comment on above: Order Comment: Speci men Type: BLOOD SPECIMEN Ordering Facility: [facility] Address: [address] [place] [address] Result Comment: Perf ormed By: [facility] [address] [place] [address] [employer]cery Team Member: Brittni Moscoso MD Performed By: #### 1 6570-4, 25685-9, 70129-5, 96202-0, 27685-2, 41441-1, 32487-5, 21980-0 #### [facility] CLIA [id number] [address] [place] [address] [place] C2 COMPLEMENT BLDon 01-26-20 22 C2 COMPLEMENT 2.4 mg/dL Normal 1.6-4.0 [facility] Comment on above: Order Comment: Speci men Type: BLOOD SPECIMEN Ordering Facility: [facility] Address: [address] [place] [address] Result Comment: INTE RPRETIVE INFORMATION: Complement Component 2 Decreased C2 levels may be associated with increased susceptibility to infection (especially pneumococcal infections), systemic lupus erythematosus-like disease, rashes, arthritis and nephritis, and with C1-Esterase deficiency. Increased C2 levels are associated with the acute phase response. This test was developed and its performance characteristics determined by [employer]. It has not been cleared or approved by the [place] Food and Drug Administration. This test was performed in a CLIA certified laboratory and is intended for clinical purposes. Performed By: [facility] [address] [place] [address] Grocery Team Member: Brittni Moscoso MD Performed By: #### 1 6570-4, 08545-8, 47054-4, 83135-3, 58189-9, 67986-2, 97862-8, 55042-6 #### [facility] CLIA [id number] [address] [place] [address] [place] C3 COMPLEMENT BLDon 01-26-20 22 Complement C3 [Mass/Vol] 130 mg/dL 86 - 166 mg/dL [facility] C3 SerPl-mCncon 01-25-2022 Complement C3 [Mass/Vol] 130 mg/dL Normal 86-166 [facility] Comment on above: Order Comment: Speci men Type: BLOOD SPECIMEN Ordering Facility: [facility] Address: [facility] [address]ELIN [address] Performed By: #### 1 6570-4, 70486-3, 85334-6, 51344-8, 73121-1, 21889-7, 06620-9, 47261-1 #### [facility] CLIA [id number] [address] [place] [address] [place] C4 COMPLEMENT BLDon 01-26-20 Complement C4 [Mass/Vol] 30 mg/dL 13 - 46 mg/dL [facility] C4 SerPl-mCncon 01-25-2022 Complement C4 [Mass/Vol] 30 mg/dL Normal 13-46 [facility] Comment on above: Order Comment: Speci men Type: BLOOD SPECIMEN Ordering Facility: [facility] Address: [address] [place], [place] [address] Performed By: #### 1 6570-4, 14570-0, 37002-6, 36778-6, 34230-2, 88563-3, 25259-8, 12619-6 #### [facility] CLIA [id number] [address] [place] [address] [place] CBC panel Auto (Bld)on 01-25 Erythrocyte distribution width (RBC) [Ratio] 12.1 % Normal 11.5-15.0 [facility] Comment on above: Order Comment: Speci men Type: BLOOD SPECIMEN Ordering Facility: [facility] Address: [address] [place], [place] [id number] Performed By: #### 1 6570-4, 25382-1, 36771-7, 91446-5, 21946-2, 13448-0, 60136-1, 93250-4 #### [facility] CLIA [id number] [address] [place] [address] [place] Hematocrit (Bld) [Volume fraction] 42.6 % Normal 36.0-46.0 [facility] Comment on above: Order Comment: Speci men Type: BLOOD SPECIMEN Ordering Facility: [facility] Address: [address] [place] [address] Performed By: #### 1 6570-4, 44143-7, 81553-3, 70415-3, 67795-0, 71369-9, 13352-6, 95039-2 #### [facility] CLIA [id number] [address] [place] [address] [place] Hemoglobin (Bld) [Mass/Vol] 13.8 g/dL Normal 11.5-15.5 [facility] Comment on above: Order Comment: Speci men Type: BLOOD SPECIMEN Ordering Facility: [facility] Address: [address] [place] [address] Performed By: #### 1 6570-4, 86171-7, 62713-6, 93847-2, 67435-0, 67837-3, 00874-2, 68486-0 #### [facility] CLIA [id number] [address] [place] [address] [place] MCH (RBC) [Entitic mass] 28.3 pg Normal 26.0-34.0 [facility] Comment on above: Order Comment: Speci men Type: BLOOD SPECIMEN Ordering Facility: [facility] Address: [address] [place] [address] Performed By: #### 1 6570-4, 66441-1, 15242-9, 59737-1, 92109-0, 74729-8, 88897-9, 38089-6 #### [facility] CLIA [id number] [address] [place] [address] [place] MCHC (RBC) [Mass/Vol] 32.4 g/dL Normal 30.5-36.0 [facility] Comment on above: Order Comment: Speci men Type: BLOOD SPECIMEN Ordering Facility: [facility] Address: [address] [place] [address] Performed By: #### 1 6570-4, 83898-6, 32394-7, 53201-7, 87846-8, 02679-5, 01675-2, 95249-4 #### [facility] CLIA [id number] [address] [place] [address] [place] MCV (RBC) [Entitic vol] 87.3 fL Normal 80.0-100.0 [facility] Comment on above: Order Comment: Speci men Type: BLOOD SPECIMEN Ordering Facility: [facility] Address: [address] [place], [place] [address] Performed By: #### 1 6570-4, 05430-2, 53099-1, 85342-7, 30048-3, 72365-0, 96836-3, 55079-8 #### [facility] CLIA [id number] [address] [place] [address] [place] Nucleated RBC (Bld) [#/Vol] 10*3/uL Normal <0.01 [facility] Comment on above: Order Comment: Speci men Type: BLOOD SPECIMEN Ordering Facility: [facility] Address: [address] [place] [address] Performed By: #### 1 6570-4, 20250-4, 87517-1, 22281-7, 05366-0, 66617-6, 28844-7, 29883-6 #### [facility] CLIA [id number] [address] [place] [address] [place] Platelet mean volume (Bld) [Entitic vol] 10.3 fL Normal 9.0-12.7 [facility] Comment on above: Order Comment: Speci men Type: BLOOD SPECIMEN Ordering Facility: [facility] Address: [address] [place] [address] Performed By: #### 1 6570-4, 36090-1, 94162-8, 37792-7, 93051-4, 78521-3, 40007-3, 15698-1 #### [facility] CLIA [id number] [address] [place] [address] [place] Platelets (Bld) [#/Vol] 213 10*3/uL Normal 150-400 [facility] Comment on above: Order Comment: Speci men Type: BLOOD SPECIMEN Ordering Facility: [facility] Address: [address] [place] [address] Performed By: #### 1 6570-4, 26871-4, 00766-3, 36603-9, 65947-7, 93600-9, 00014-4, 54660-4 #### [facility] CLIA [id number] [address] [place] [address] [place] RBC (Bld) [#/Vol] 4.88 10*6/uL Normal 3.90-5.20 [facility] Comment on above: Order Comment: Speci men Type: BLOOD SPECIMEN Ordering Facility: [facility] Address: [address] [place], [place] [address] Performed By: #### 1 6570-4, 99893-7, 93906-3, 88395-1, 43309-6, 52845-4, 22318-6, 53449-9 #### [facility] CLIA [id number] [address] [place] [address] [place] WBC (Bld) [#/Vol] 4.77 10*3/uL Normal 3.70-11.00 [facility] Comment on above: Order Comment: Speci men Type: BLOOD SPECIMEN Ordering Facility: [facility] Address: [address] [place], [place] [address] Performed By: #### 1 6570-4, 67731-6, 50402-6, 42029-2, 26574-2, 40426-6, 16006-0, 79306-2 #### [facility] CLIA [id number] [address] [place] [address] [place] Erythrocyte distribution width (RBC) [Ratio] 12.1 % 11.5 - 15.0 % [facility] Hematocrit (Bld) [Volume fraction] 42.6 % 36.0 - 46.0 % [facility] Hemoglobin (Bld) [Mass/Vol] 13.8 g/dL 11.5 - 15.5 g/dL [facility] MCH (RBC) [Entitic mass] 28.3 pg 26.0 - 34.0 pg [facility] MCHC (RBC) [Mass/Vol] 32.4 g/dL 30.5 - 36.0 g/dL [facility] MCV (RBC) [Entitic vol] 87.3 fL 80.0 - 100.0 fL [facility] Nucleated RBC (Bld) [#/Vol] 10*3/uL <0.01 k/uL [facility] Platelet mean volume (Bld) [Entitic vol] 10.3 fL 9.0 - 12.7 fL [facility] Platelets (Bld) [#/Vol] 213 10*3/uL 150 - 400 k/uL [facility] RBC (Bld) [#/Vol] 4.88 10*6/uL 3.90 - 5.20 m/uL [facility] WBC (Bld) [#/Vol] 4.77 10*3/uL 3.70 - 11.00 k/uL [facility] CRP SerPl-mCncon 01-25-2022 CRP [Mass/Vol] 0.4 mg/dL Normal <0.9 [facility] Comment on above: Order Comment: Jose Carlos oseguera Type: BLOOD SPECIMEN Ordering Facility: [facility] Address: [address] [place] [address] Performed By: #### 1 6570-4, 50716-6, 10097-3, 31000-5, 26023-9, 29442-0, 47040-6, 59178-0 #### [facility] CLIA [id number] [address] [place] [address] OF [facility] Centromere Ab IF Ql (S)on Centromere Ab Qn (S) <0.2 Normal <1.0 [facility] Comment on above: Order Comment: Jose Carlos oseguera Type: BLOOD SPECIMEN Ordering Facility: [facility] Address: [address] [place] [address] Result Comment: Anti -centromere antibody is used as in aid in diagnosis of systemic sclerosis. Clinical correlation is required. Test Methodology: Multiplex flow immunoassay. Performed By: #### 1 6570-4, 66253-5, 78623-5, 82835-2, 64132-2, 98119-7, 58922-5, 28388-1 #### [facility] CLIA [id number] [address] [place] [address] CENTROMERE AB QUAL Negative Normal Negative [facility] Comment on above: Order Comment: Speci men Type: BLOOD SPECIMEN Ordering Facility: [facility] Address: [address] [place] [address] Performed By: #### 1 6570-4, 39706-6, 38313-3, 90802-3, 47025-1, 23753-2, 93319-2, 56332-7 #### [facility] CLIA [id number] [address] [place] [address] Chromatin Ab Qnon 01-25-2022 CHROMATIN AB QUAL Negative Normal Negative [facility] Comment on above: Order Comment: Speci men Type: BLOOD SPECIMEN Ordering Facility: [facility] Address: [address] [place] [address] Performed By: #### 1 6570-4, 34732-1, 30684-9, 84786-8, 18265-0, 36856-2, 18385-8, 12864-2 #### [facility] CLIA [id number] [address] [place] [address] [place] Chromatin Ab SerPl-aCncon Chromatin Ab Qn <0.2 Normal <1.0 [facility] Comment on above: Order Comment: Speci men Type: BLOOD SPECIMEN Ordering Facility: [facility] Address: [address] [place] [address] Result Comment: Test Methodology: Multiplex flow immunoassay. Performed By: #### 1 6570-4, 37501-8, 38133-0, 61811-5, 52896-4, 16890-9, 92771-3, 01307-9 #### [facility] CLIA [id number] [address] [place] [address] OF [facility] Comprehensive metabolic 2000 panelon 01-25-2022 Albumin [Mass/Vol] 4.5 g/dL 3.9 - 4.9 g/dL [facility] ALP [Catalytic activity/Vol] 65 U/L 34 - 123 U/L [facility] ALT [Catalytic activity/Vol] 14 U/L 7 - 38 U/L [facility] Anion gap [Moles/Vol] 11 mmol/L 9 - 18 mmol/L [facility] AST [Catalytic activity/Vol] 14 U/L 13 - 35 U/L [facility] Bilirubin [Mass/Vol] 0.3 mg/dL 0.2 - 1 .3 mg/dL [facility] Calcium [Mass/Vol] 9.5 mg/dL 8.5 - 10. 2 mg/dL [facility] Chloride [Moles/Vol] 105 mmol/L 97 - 10 5 mmol/L [facility] CO2 [Moles/Vol] 26 mmol/L 22 - 30 mmol/L [facility] Creatinine [Mass/Vol] 0.71 mg/dL 0.58 - 0.96 mg/dL [facility] Estimated Glomerular Filtration Rate 125 mL/min/1.73m >=60 mL/min/1.7 3m [facility] Glucose [Mass/Vol] 94 mg/dL 74 - 99 mg/dL [facility] Potassium [Moles/Vol] 4.6 mmol/L 3.7 - 5.1 mmol/L [facility] Protein [Mass/Vol] 7.2 g/dL 6.3 - 8.0 g/dL [facility] Sodium [Moles/Vol] 142 mmol/L 136 - 144 mmol/L [facility] Urea nitrogen [Mass/Vol] 8 mg/dL 7 - 21 mg/dL [facility] Albumin [Mass/Vol] 4.5 g/dL Normal 3.9-4.9 [facility] Comment on above: Order Comment: Speci men Type: BLOOD SPECIMEN Ordering Facility: [facility] Address: [address] [place] [address] Performed By: #### 1 6570-4, 65999-0, 16606-7, 74765-0, 00662-0, 45702-2, 54294-3, 43487-0 #### [facility] CLIA [id number] [address] [place] [address] [place] ALP [Catalytic activity/Vol] 65 U/L Normal 34-123 [facility] Comment on above: Order Comment: Speci men Type: BLOOD SPECIMEN Ordering Facility: [facility] Address: [address] [place], [place] [address] Performed By: #### 1 6570-4, 56076-6, 32190-1, 45216-8, 66359-2, 93274-8, 40843-8, 63803-3 #### [facility] CLIA [id number] [address] [place] [address] [place] ALT [Catalytic activity/Vol] 14 U/L Normal 7-38 [facility] Comment on above: Order Comment: Speci men Type: BLOOD SPECIMEN Ordering Facility: [facility] Address: [address] [place], [place] [address] Performed By: #### 1 6570-4, 25909-1, 87750-7, 34861-6, 69113-5, 07018-1, 84414-9, 58269-9 #### [facility] CLIA [id number] [address] [place] [address] [place] Anion gap [Moles/Vol] 11 mmol/L Normal 9-18 [facility] Comment on above: Order Comment: Speci men Type: BLOOD SPECIMEN Ordering Facility: [facility] Address: [facility] [address] Performed By: #### 1 6570-4, 10596-2, 64804-1, 54475-3, 38106-1, 61066-4, 45894-2, 23035-2 #### [facility] CLIA [id number] [address] [place] [address] [place] AST [Catalytic activity/Vol] 14 U/L Normal 13-35 [facility] Comment on above: Order Comment: Speci men Type: BLOOD SPECIMEN Ordering Facility: [facility] Address: [address] [place] [address] Performed By: #### 1 6570-4, 57066-1, 92534-1, 45308-4, 18149-2, 68633-1, 35216-7, 31313-6 #### [facility] CLIA [id number] [address] [place] [address] [place] Bilirubin [Mass/Vol] 0.3 mg/dL Normal 0.2-1.3 [facility] Comment on above: Order Comment: Speci men Type: BLOOD SPECIMEN Ordering Facility: [facility] Address: [address] [place] [address] Performed By: #### 1 6570-4, 00206-1, 91661-5, 15285-7, 64419-0, 86614-5, 88715-1, 20272-0 #### [facility] CLIA [id number] [address] [place] [address] [place] Calcium [Mass/Vol] 9.5 mg/dL Normal 8.5-10.2 [facility] Comment on above: Order Comment: Speci men Type: BLOOD SPECIMEN Ordering Facility: [facility] Address: [address] [place] [address] Performed By: #### 1 6570-4, 92540-1, 08308-0, 13115-8, 85098-8, 96744-2, 49350-7, 87643-1 #### [facility] CLIA [id number] [address] [place] [address] [place] Chloride [Moles/Vol] 105 mmol/L Normal 97-105 [facility] Comment on above: Order Comment: Speci men Type: BLOOD SPECIMEN Ordering Facility: [facility] Address: [address] [place], [place] [address] Performed By: #### 1 6570-4, 45894-2, 18109-2, 40900-2, 07778-2, 50504-8, 80940-1, 38287-6 #### [facility] CLIA [id number] [address] [place] [address] [place] CO2 [Moles/Vol] 26 mmol/L Normal 22-30 [facility] Comment on above: Order Comment: Speci men Type: BLOOD SPECIMEN Ordering Facility: [facility] Address: [address] [place] [address] Performed By: #### 1 6570-4, 31487-7, 98931-9, 92541-8, 05039-6, 99111-2, 73633-9, 63293-3 #### [facility] CLIA [id number] [address] [place] [address] [place] Creatinine [Mass/Vol] 0.71 mg/dL Normal 0.58-0.96 [facility] Comment on above: Order Comment: Speci men Type: BLOOD SPECIMEN Ordering Facility: [facility] Address: [address] [place] [address] Performed By: #### 1 6570-4, 05438-9, 11480-1, 28978-8, 70393-9, 91703-0, 46676-3, 38826-7 #### [facility] CLIA [id number] [address] [place] [address] [place] ESTIMATED GLOMERULAR FILTRATION RATE 125 mL/min/1.73m??? Normal >=60 [facility] Comment on above: Order Comment: Speci men Type: BLOOD SPECIMEN Ordering Facility: [facility] Address: [address] [place] [address] Result Comment: Francesca mated Glomerular Filtration Rate [...] actual GFR. Performed By: #### 1 6570-4, 64612-5, 60529-9, 82787-4, 40373-5, 10997-6, 35297-8, 65511-3 #### [facility] CLIA [id number] [address] [place] [address] [place] Glucose [Mass/Vol] 94 mg/dL Normal 74-99 [facility] Comment on above: Order Comment: Jose Carlos oseguera Type: BLOOD SPECIMEN Ordering Facility: [facility] Address: [address] [place] [address] Result Comment: The [place] [employer] (ADA) provides guidance for cutoff [...] Standards of Medical Care in Diabetes 2016, [place] [employer]. Diabetes Care. 2016.39(Suppl 1). Performed By: #### 1 6570-4, 12388-5, 41328-6, 75986-7, 28930-7, 37299-8, 88986-4, 85832-9 #### [facility] CLIA [id number] [facility] [place] [address] [place] Potassium [Moles/Vol] 4.6 mmol/L Normal 3.7-5.1 [facility] Comment on above: Order Comment: Jose Carlos oseguera Type: BLOOD SPECIMEN Ordering Facility: [facility] Address: [address] [place] [address] Performed By: #### 1 6570-4, 73096-0, 79905-7, 48239-5, 52236-7, 25704-1, 19771-9, 84069-2 #### [facility] CLIA [id number] [address] [place] [address] [place] Protein [Mass/Vol] 7.2 g/dL Normal 6.3-8.0 [facility] Comment on above: Order Comment: Speci men Type: BLOOD SPECIMEN Ordering Facility: [facility] Address: [address] [place] [address] Performed By: #### 1 6570-4, 91875-4, 94363-8, 88763-4, 80474-3, 11306-4, 37038-0, 65248-1 #### [facility] CLIA [id number] [address] [place] [address] [place] Sodium [Moles/Vol] 142 mmol/L Normal 136-144 [facility] Comment on above: Order Comment: Speci men Type: BLOOD SPECIMEN Ordering Facility: [facility] Address: [address] [place] [address] Performed By: #### 1 6570-4, 42322-5, 64979-2, 93424-0, 74321-6, 13305-2, 45726-5, 82628-9 #### [facility] CLIA [id number] [address] [place] [address] [place] Urea nitrogen [Mass/Vol] 8 mg/dL Normal 7-21 [facility] Comment on above: Order Comment: Speci men Type: BLOOD SPECIMEN Ordering Facility: [facility] Address: [address] [place] [address] Performed By: #### 1 6570-4, 34664-0, 36434-3, 05858-8, 47152-3, 63074-3, 38672-8, 63143-3 #### [facility] CLIA [id number] [address] [place] [address] [place] Cyclic citrullinated peptide IgG Qnon 01-25-2022 CCP ANTIBODY IGG QUALITATIVE Negative Normal Negative [facility] Comment on above: Order Comment: Speci men Type: BLOOD SPECIMEN Ordering Facility: [facility] Address: [address] [place] [address] Performed By: #### 1 6570-4, 09774-6, 32495-5, 60575-9, 86979-5, 62240-7, 21668-0, 50188-8 #### [facility] CLIA [id number] [address] [place] [address] [place] JASON Jo1 Ab Ser-aCncon 2021 Yuly-1 extractable nuclear Ab Qn (S) <0.2 Normal <1.0 [facility] Comment on above: Order Comment: Speci men Type: BLOOD SPECIMEN Ordering Facility: [facility] Address: [address] [place], [place] [address] Performed By: #### 1 6570-4, 15971-5, 23044-4, 69548-3, 62705-2, 63230-0, 97567-5, 32644-7 #### [facility] CLIA [id number] [address] [place] [address] [place] JASON PATIENT RELATIONS REPRESENTATIVE Ab Ser-aCncon 2021 Ribonucleoprotein extractable nuclear Ab Qn (S) <0.2 Normal <1.0 [facility] Comment on above: Order Comment: Speci men Type: BLOOD SPECIMEN Ordering Facility: [facility] Address: [address] [place] [address] Performed By: #### 1 6570-4, 40218-8, 17775-6, 28479-9, 95950-9, 15489-5, 88975-3, 10822-0 #### [facility] CLIA [id number] [address] [place] [address] [place] JASON SM IgG Ser-aCncon 2021 Cota extractable nuclear IgG Qn (S) <0.2 Normal <1.0 [facility] Comment on above: Order Comment: Horacioi ana rosa Type: BLOOD SPECIMEN Ordering Facility: [facility] Address: [address] [place] [address] Performed By: #### 1 6570-4, 12461-6, 76947-2, 16903-0, 64784-5, 78338-8, 43437-0, 87640-3 #### [facility] CLIA [id number] [address] [place] [address] [place] SS-A Ab Ser-aCncon 01-25 Sjogrens syndrome-A extractable nuclear Ab Qn (S) <0.2 Normal <1.0 [facility] Comment on above: Order Comment: Jose Carlos oseguera Type: BLOOD SPECIMEN Ordering Facility: [facility] Address: [address] [place] [address] Result Comment: Test Methodology: Multiplex flow immunoassay. Performed By: #### 1 6570-4, 42615-7, 74929-9, 15699-7, 75318-4, 45059-3, 63354-9, 27514-2 #### [facility] CLIA [id number] [address] [place] [address] [place] SS-B Ab Ser-aCncon 01-25 Sjogrens syndrome-B extractable nuclear Ab Qn (S) <0.2 Normal <1.0 [facility] Comment on above: Order Comment: Horacioi [facility] Type: BLOOD SPECIMEN Ordering Facility: [facility] Address: [address] [place] [address] Result Comment: Anti -SSB (anti-La) antibody is used as an aid in diagnosis of a variety of systemic autoimmune diseases, especially for Sjogren's syndrome and systemic lupus erythematosus. Clinical correlation is required. Test Methodology: Multiplex flow immunoassay. Performed By: #### 1 6570-4, 33486-5, 50096-2, 36429-8, 22049-7, 04361-6, 52929-8, 58599-6 #### [facility] CLIA [id number] [address] [place] [address] [place] ESR Westergren method (Bld) [Velocity]on 01-25-2022 ESR (Bld) [Velocity] 2 mm/h 0 - 20 mm/hr [facility] ESR (Bld) [Velocity] 2 mm/h Normal 0-20 [facility] Comment on above: Order Comment: Speci men Type: BLOOD SPECIMEN Ordering Facility: [facility] Address: [address] [place] [address] Performed By: #### 1 6570-4, 97832-9, 36128-7, 79240-9, 68051-2, 78195-3, 26048-8, 13234-0 #### [facility] CLIA [id number] [address] [place] [address] [place] HBV core Ab Ser Qlon 022 HBV core Ab Ql (S) Negative Normal Negative [facility] Comment on above: Order Comment: Speci men Type: BLOOD SPECIMEN Ordering Facility: [facility] Address: [address] [place] [address] Result Comment: No e vidence of current or past infection with Hepatitis B virus. Should recent infection be suspected, repeat testing may be considered 3-4 weeks after this draw. Performed By: #### 1 6570-4, 04683-3, 28042-2, 57482-0, 25963-2, 95529-0, 33726-9, 04825-0 #### [facility] CLIA [id number] [address] [place] [address] [place] HBV surface Ab IA Ql (S)on 0 01-25-2022 HBV surface Ag Ql (S) Negative Normal Negative [facility] Comment on above: Order Comment: Speci men Type: BLOOD SPECIMEN Ordering Facility: [facility] Address: [address] [place], [place] [address] Performed By: #### 1 6570-4, 58298-8, 17114-2, 77428-9, 62501-2, 09424-2, 34309-5, 80150-4 #### [facility] CLIA [id number] [address] [place] [address] [place] HBV surface Ab Ser Qlon 05-0 HBV surface Ab Ql (S) Negative Normal Negative [facility] Comment on above: Order Comment: Jose Carlos oseguera Type: BLOOD SPECIMEN Ordering Facility: [facility] Address: [address] [place] [address] Result Comment: No e vidence of current or past infection with Hepatitis B virus. Should recent infection be suspected, repeat testing may be considered 3-4 weeks after this draw. Performed By: #### 1 6570-4, 22123-0, 46764-5, 36741-5, 98332-1, 28515-5, 89510-1, 46610-6 #### [facility] CLIA [id number] [address] [place] [address] [place] HCV Ab Ser Qlon 01-25-2022 HCV Ab Ql (S) Negative Normal Negative [facility] Comment on above: Order Comment: Jose Carlos oseguera Type: BLOOD SPECIMEN Ordering Facility: [facility] Address: [address] [place] [address] Result Comment: The result suggests no evidence of active infection with Hepatitis C virus. Should recent infection be suspected, repeat testing may be considered 4-6 weeks after this draw. Performed By: #### 1 6570-4, 02235-4, 49991-8, 03988-8, 30642-9, 72469-1, 80560-0, 81727-6 #### [facility] CLIA [id number] [address] [place] [address] [place] Yuly-1 extractable nuclear Ab Qn (S)on 01-25-2022 YULY 1 ANTIBODY QUAL Negative Normal Negative [facility] Comment on above: Order Comment: Jose Carlos oseguera Type: BLOOD SPECIMEN Ordering Facility: [facility] Address: [address] [place], [place] [address] Result Comment: Anti -YULY-1 antibody is used as an aid in diagnosis of polymyositis and dermatomyositis especially with pulmonary involvement. A negative result cannot rule out polymyositis or dermatomyositis. Clinical correlation is required. Test Methodology: Multiplex flow immunoassay. Performed By: #### 1 6570-4, 96545-3, 78809-7, 07735-7, 77609-1, 76001-2, 46693-9, 55578-8 #### [facility] CLIA [id number] [address] [place] [address] [place] Nuclear Ab IA Ql (S)on 01-25 ARMANI BY EIA, QUAL Negative Normal Negative [facility] Comment on above: Order Comment: Speci men Type: BLOOD SPECIMEN Ordering Facility: [facility] Address: [address] [place] [address] Result Comment: The qualitative antinuclear antibody screen test performed using enzyme immunoassay including the following antigens: dsDNA, histones, SS-A, SS-B, Sm, Sm/PATIENT RELATIONS REPRESENTATIVE, Scl-70, Yuly-1, and centromeric antigens. Performed By: #### 1 6570-4, 94340-6, 62961-2, 93985-9, 95128-0, 70665-8, 10947-3, 54667-8 #### [facility] CLIA [id number] [address] [place] [address] [place] RHEUMATOID FACTOR BLon 01-25 Rheumatoid factor Qn [IU]/mL <16 IU/mL [facility] Rheumatoid factor Qn [IU]/mL Normal <16 [facility] Comment on above: Order Comment: Speci men Type: BLOOD SPECIMEN Ordering Facility: [facility] Address: [address] [place], [place] [address] Performed By: #### 1 6570-4, 54255-9, 82120-8, 19673-8, 32193-9, 32699-0, 01713-7, 47796-8 #### [facility] CLIA [id number] [address] [place] [address] [place] Ribonucleoprotein extractabl e nuclear Ab Qn (S)on 01-25-2022 ANTI-PATIENT RELATIONS REPRESENTATIVE QUAL Negative Normal Negative [facility] Comment on above: Order Comment: Speci men Type: BLOOD SPECIMEN Ordering Facility: [facility] Address: [address] [place] [address] Performed By: #### 1 6570-4, 71935-0, 15870-7, 81820-2, 47123-1, 31533-8, 34783-5, 04921-8 #### [facility] CLIA [id number] [address] [place] [address] [place] RIBOSOMAL PATIENT RELATIONS REPRESENTATIVE QUAL Negative Normal Negative [facility] Comment on above: Order Comment: Jose Carlos oseguera Type: BLOOD SPECIMEN Ordering Facility: [facility] Address: [address] [place] [address] Result Comment: Anti -Ribosomal RNA (Ribosomal P) antibody is used as an aid in diagnosis of systemic autoimmune diseases especially systemic lupus erythematosus and mixed connective tissue disease. Cross-reactivity with Anti-cota antibody is not uncommon. Clinical correlation is required. Test Methodology: Multiplex flow immunoassay. Performed By: #### 1 6570-4, 30280-1, 91495-4, 65219-1, 32689-5, 57885-2, 38179-4, 36786-9 #### [facility] CLIA [id number] [address] [place] [address] [place] SCL-70 extractable nuclear I gG IA Qn (S)on 01-25-2022 SCLERODERMA AB QUAL Negative Normal Negative [facility] Comment on above: Order Comment: Jose Carlos oseguera Type: BLOOD SPECIMEN Ordering Facility: [facility] Address: [address] [place] [address] Performed By: #### 1 6570-4, 05085-8, 79686-7, 22925-1, 72463-0, 58938-0, 29414-9, 05936-7 #### [facility] CLIA [id number] [address] [place] [address] [place] SCLERODERMA IGG AB <0.2 Normal <1.0 [facility] Comment on above: Order Comment: Speci men Type: BLOOD SPECIMEN Ordering Facility: [facility] Address: [address] [place] [address] Result Comment: Scl- 70/Scleroderma antibody test is used as an aid in diagnosis of systemic sclerosis especially the diffuse cutaneous form. A negative result cannot rule out systemic sclerosis. The final interpretation should consider clinical picture and other test results such as anti-centromere antibody. Test Methodology: Multiplex flow immunoassay. Performed By: #### 1 6570-4, 36471-6, 57086-0, 84540-1, 33370-1, 87108-1, 59572-3, 86375-9 #### [facility] IA [id number] [address] [place] [address] [place] Sjogrens syndrome-A extracta ble nuclear Ab Qn (S)on 01-25-2022 SSA ANTIBODY QUAL Negative Normal Negative [facility] Comment on above: Order Comment: Speci men Type: BLOOD SPECIMEN Ordering Facility: [facility] Address: [address] [place] [address] Performed By: #### 1 6570-4, 51175-7, 24673-9, 41541-6, 60354-5, 56245-4, 39952-8, 21278-4 #### [facility] CLIA [id number] [address] [place] [address] [place] Sjogrens syndrome-B extracta ble nuclear Ab Qn (S)on 01-25-2022 SSB ANTIBODY QUAL Negative Normal Negative [facility] Comment on above: Order Comment: Speci men Type: BLOOD SPECIMEN Ordering Facility: [facility] Address: [address] [place] [address] Performed By: #### 1 6570-4, 65805-8, 06595-5, 60235-5, 19013-8, 47975-2, 32163-8, 75232-8 #### [facility] CLIA [id number] [address] [place] [address] [place] Cota extractable nuclear Ig G Qn (S)on 01-25-2022 SM ANTIBODY QUAL Negative Normal Negative [facility] Comment on above: Order Comment: Jose Carlos oseguera Type: BLOOD SPECIMEN Ordering Facility: [facility] Address: [address] [place] [address] Result Comment: Anti -Sm (Cota) antibody is used as an aid in diagnosis of systemic lupus erythematosus and its presence is associated with renal disease. A negative result cannot rule out systemic lupus erythematosus. Clinical correlation is required. Test Methodology: Multiplex flow immunoassay. Performed By: #### 1 6570-4, 01365-1, 89966-8, 52092-9, 55596-4, 06444-0, 27764-7, 83881-5 #### [facility] CLIA [id number] [address] [place] [address] [place] cCP IgG SerPl-aCncon 022 Cyclic citrullinated peptide IgG Qn <15 Normal <20 [facility] Comment on above: Order Comment: Jose Carlos oseguera Type: BLOOD SPECIMEN Ordering Facility: [facility] Address: [address] [place] [address] Performed By: #### 1 6570-4, 91069-7, 64085-5, 48401-0, 53285-4, 93551-7, 84747-0, 16911-5 #### [facility] CLIA [id number] [address] [place] [address] [place] XR ankle LT min 3V*on 2021 XR ankle LT min 3V* [facility] [employer] Other XR ankle LT min 3V* [facility] [employer] Other XR ankle LT min 3V* [address] [place] [address] [employer] Other XR ankle LT min 3V* [place] [address] [employer] Other XR ankle LT min 3V* [facility] Other XR ankle LT min 3V* Signed [facility] Other XR ankle LT min 3V* Patient: Madyson Schmid MR#: [id number] [employer] Other XR ankle LT min 3V* : 2000 Acct:[id number] [employer] Other XR ankle LT min 3V* Age/Sex: 20 / F ADM Date: 10/10/21 [employer] Other XR ankle LT min 3V* Loc: XDUCLY Room: pe: [facility] [employer] Other XR ankle LT min 3V* Attending Dr: Christina GONZALEZ [employer] Other XR ankle LT min 3V* Ordering Provider: CARLOS Santos [facility] Other XR ankle LT min 3V* Date of Service: 10/10/21 [employer] Other XR ankle LT min 3V* XR/XR ankle LT min 3V*: Acute left ankle pain [employer] Other XR ankle LT min 3V* Copies to: CARLOS Beckman [employer] Other XR ankle LT min 3V* Left ankle 10/10/2021. [employer] Other XR ankle LT min 3V* CLINICAL DATA: Left ankle pain after twisting injury. [employer] Other XR ankle LT min 3V* FINDINGS: 3 views of the left ankle were obtained. [employer] Other XR ankle LT min 3V* No acute fracture or dislocation is identified. No other bony abnormality is seen. Anterolateral [employer] Other XR ankle LT min 3V* soft tissue swelling is noted. [employer] Other XR ankle LT min 3V* X R/XR ankle LT min 3V* [employer] Other XR ankle LT min 3V* IMPRESSION: Soft tis cody swelling. No acute bony abnormality. [employer] Other XR ankle LT min 3V* Impression dictated by: Erick Cueto Jr., M.D.10/10/2021 4:24 PM [employer] Other XR ankle LT min 3V* Dictation Location: [place] [address] [employer] Other XR ankle LT min 3V* Transcribed By: MIRELLA 10/10/21 1624 [employer] Other XR ankle LT min 3V* Dictated By: Erick Cueto Jr, MD 10/10/21 1621 [employer] Other XR ankle LT min 3V* Signed By: [facility] Other XR ankle LT min 3V* 10/10/21 1624 No rt A2B Other Vital Signs Date Time Vital Sign Value Performing Clinician Facility 10-29-2024 16:23-0500 Body mass index (BMI) [Ratio] 38.27 kg/m2 Osei Helena DO Work Phone: [facility] 10-29-2024 16:23-0500 Body weight 104.33 kg Osei Helena DO Work Phone: [facility] 10-29-2024 16:23-0500 Diastolic blood pressure 68 mm[Hg] Osei Helena DO Work Phone: [facility] 10-29-2024 16:23-0500 Systolic blood pressure 112 mm[Hg] Osei Helena DO Work Phone: [facility] 10-15-2024 16:11-0500 Body mass index (BMI) [Ratio] 38.94 kg/m2 Osei Helena DO Work Phone: [facility] 10-15-2024 16:11-0500 Body weight 106.14 kg Osei Helena DO Work Phone: [facility] 10-15-2024 16:11-0500 Diastolic blood pressure 64 mm[Hg] Osei Helena DO Work Phone: [facility] 10-15-2024 16:11-0500 Systolic blood pressure 118 mm[Hg] Osei Helena DO Work Phone: [facility] 10-02-2024 11:43-0500 Body mass index (BMI) [Ratio] 38.44 kg/m2 Osei Helena DO Work Phone: [facility] 10-02-2024 11:43-0500 Body weight 104.78 kg Osei Helena DO Work Phone: [facility] 10-02-2024 11:43-0500 Diastolic blood pressure 72 mm[Hg] Osei Helena DO Work Phone: [facility] 10-02-2024 11:43-0500 Systolic blood pressure 118 mm[Hg] Osei Helena DO Work Phone: [facility] 09-18-2024 10:52-0500 Body mass index (BMI) [Ratio] 38.74 kg/m2 Osei Helena DO Work Phone: [facility] 09-18-2024 10:52-0500 Body weight 105.6 kg Osei Helena DO Work Phone: [facility] 09-18-2024 10:52-0500 Diastolic blood pressure 68 mm[Hg] Osei Helena DO Work Phone: [facility] 09-18-2024 10:52-0500 Systolic blood pressure 118 mm[Hg] Osei Helena DO Work Phone: [facility] 09-03-2024 15:21-0500 Body mass index (BMI) [Ratio] 37.44 kg/m2 Osei Helena DO Work Phone: [facility] 09-03-2024 15:21-0500 Body weight 102.06 kg Osei Helena DO Work Phone: [facility] 09-03-2024 15:21-0500 Diastolic blood pressure 68 mm[Hg] Osei Helena DO Work Phone: [facility] 09-03-2024 15:21-0500 Systolic blood pressure 120 mm[Hg] Osei Helena DO Work Phone: [facility] 08-27-2024 13:08-0500 Body height 165.1 cm Camilla Hemmer PA Work Phone: [facility] 08-27-2024 13:08-0500 Body mass index (BMI) [Ratio] 38.11 kg/m2 Camilla Hemmer PA Work Phone: [facility] 08-27-2024 13:08-0500 Body weight 103.87 kg Camilla Hemmer PA Work Phone: [facility] 08-27-2024 13:08-0500 Diastolic blood pressure 72 mm[Hg] Camilla Hemmer PA Work Phone: [facility] 08-27-2024 13:08-0500 Heart rate 92 /min Camilla Hemmer PA Work Phone: [facility] 08-27-2024 13:08-0500 Respiratory rate 16 /min Camilla Hemmer PA Work Phone: [facility] 08-27-2024 13:08-0500 SaO2% (BldA) [Mass fraction] 98 % Camilla Hemmer PA Work Phone: [facility] 08-27-2024 13:08-0500 Systolic blood pressure 118 mm[Hg] Camilla Hemmer PA Work Phone: [facility] 08-13-2024 09:22-0500 Body height 165.1 cm Hammad Hatch MD Work Phone: [facility] 08-13-2024 09:22-0500 Body mass index (BMI) [Ratio] 36.91 kg/m2 Hammad Hatch MD Work Phone: [facility] 08-13-2024 09:22-0500 Body weight 100.61 kg Hammad Hatch MD Work Phone: [facility] 08-05-2024 09:05-0500 Body mass index (BMI) [Ratio] 36.44 kg/m2 Flori Louise PA Work Phone: [facility] 08-05-2024 09:05-0500 Body weight 99.34 kg Flori Bovill PA Work Phone: [facility] 08-05-2024 09:05-0500 Diastolic blood pressure 68 mm[Hg] Flori Bovill PA Work Phone: [facility] 08-05-2024 09:05-0500 Systolic blood pressure 110 mm[Hg] Flori Bovill PA Work Phone: [facility] 07-03-2024 14:41-0400 Body mass index (BMI) [Ratio] 35.65 kg/m2 Flori Bovill PA Work Phone: [facility] 07-03-2024 14:41-0400 Body weight 97.18 kg Flori Louise PA Work Phone: [facility] 07-03-2024 14:41-0400 Diastolic blood pressure 64 mm[Hg] Flori Louise PA Work Phone: [facility] 07-03-2024 14:41-0400 Systolic blood pressure 116 mm[Hg] Flori Bovill PA Work Phone: [facility] 06-04-2024 15:53-0400 Body mass index (BMI) [Ratio] 35.36 kg/m2 Osei Helena DO Work Phone: [facility] 06-04-2024 15:53-0400 Body weight 96.39 kg Osei Helena DO Work Phone: [facility] 06-04-2024 15:53-0400 Diastolic blood pressure 70 mm[Hg] Osei Helena DO Work Phone: [facility] 06-04-2024 15:53-0400 Systolic blood pressure 126 mm[Hg] Osei Helena DO Work Phone: [facility] 05-23-2024 09:35-0400 Body mass index (BMI) [Ratio] 35.01 kg/m2 Nom Nurse [facility] 05-23-2024 09:35-0400 Body weight 95.44 kg [facility] Nurse [facility] 05-20-2024 09:37-0400 Body height 165.1 cm Camilla Hemmer PA Work Phone: [facility] 05-20-2024 09:37-0400 Body mass index (BMI) [Ratio] 34.98 kg/m2 Camilla Hemmer PA Work Phone: [facility] 05-20-2024 09:37-0400 Body weight 95.35 kg Camilla Hemmer PA Work Phone: [facility] 05-20-2024 09:37-0400 Diastolic blood pressure 76 mm[Hg] Camilla Hemmer PA Work Phone: [facility] 05-20-2024 09:37-0400 Heart rate 87 /min Camilla Hemmer PA Work Phone: [facility] 05-20-2024 09:37-0400 Respiratory rate 16 /min Camilla Hemmer PA Work Phone: [facility] 05-20-2024 09:37-0400 SaO2% (BldA) [Mass fraction] 98 % Camilla Hemmer PA Work Phone: [facility] 05-20-2024 09:37-0400 Systolic blood pressure 108 mm[Hg] Camilla Hemmer PA Work Phone: [facility] 11-30-2023 09:33-0500 Body height 165.1 cm Jyoti TOLBERT-C Work Phone: [facility] 11-30-2023 09:33-0500 Body weight 92.99 kg Jyoti Dickey PA-C Work Phone: [facility] 11-30-2023 09:33-0500 Diastolic blood pressure 79 mm[Hg] Jyoti Dickey PA-C Work Phone: [facility] 11-30-2023 09:33-0500 Heart rate 84 /min Jyoti Dickey PA-C Work Phone: [facility] 11-30-2023 09:33-0500 SaO2% (BldA) [Mass fraction] 96 % Jyoti Dickey PA-C Work Phone: [facility] 11-30-2023 09:33-0500 Systolic blood pressure 118 mm[Hg] Jyoti Dickey PA-C Work Phone: [facility] 06-13-2023 12:36-0400 Body height 165.1 cm Ibis Rhonda Myra [facility] [employer] 600 DO Work Phone: 06-13-2023 12:36-0400 Body mass index (BMI) [Ratio] 33.28 kg/m2 Ibis A Myra Work Phone: [facility] [employer] 600 DO Work Phone: 06-13-2023 12:36-0400 Body surface area Derived from formula 1.98 m2 Ibis Rhonda Myra Work Phone: [facility] [employer] 600 DO Work Phone: 06-13-2023 12:36-0400 Body weight 90.72 kg Ibis Rhonda Myra Work Phone: [facility] [employer] 600 DO Work Phone: 06-13-2023 12:36-0400 Diastolic blood pressure 80 mm[Hg] Ibis Rhonda Myra Work Phone: [facility] [employer] 600 DO Work Phone: 06-13-2023 12:36-0400 Heart rate 76 /min Ibis A Myra Work Phone: [facility] 600 DO Work Phone: 06-13-2023 12:36-0400 Systolic blood pressure 116 mm[Hg] Ibis A Myra Work Phone: [facility] 600 DO Work Phone: 06-08-2023 21:50-0400 Diastolic blood pressure 59 mm[Hg] TAR HEATER OPERATOR-C Ibis Myra Work Phone: [facility] 06-08-2023 21:50-0400 Heart rate 82 /min TAR HEATER OPERATOR-C Ibis Myra Work Phone: [facility] 06-08-2023 21:50-0400 Respiratory rate 18 /min TAR HEATER OPERATOR-C Ibis Myra Work Phone: [facility] 06-08-2023 21:50-0400 SaO2% (BldA) [Mass fraction] 99 % TAR HEATER OPERATOR-C Ibis Myra Work Phone: [facility] 06-08-2023 21:50-0400 Systolic blood pressure 115 mm[Hg] TAR HEATER OPERATOR-C Ibis Myra Work Phone: [facility] 06-08-2023 16:35-0400 Body height 165.1 cm TAR HEATER OPERATOR-C Ibis Myra Work Phone: [facility] 06-08-2023 16:35-0400 Body temperature 97.8 [degF] TAR HEATER OPERATOR-C Ibis Myra Work Phone: [facility] 06-08-2023 16:35-0400 Body weight 91.6 kg TAR HEATER OPERATOR-C [employer]bis Myra Work Phone: [facility] 12-28-2022 15:00-0400 Body weight 89.36 kg Irvin Hanna MD Work Phone: [facility] 12-28-2022 15:00-0400 Diastolic blood pressure 86 mm[Hg] Irvin Hanna MD Work Phone: [facility] 12-28-2022 15:00-0400 Heart rate 79 /min Irvin Hanna MD Work Phone: [facility] 12-28-2022 15:00-0400 Respiratory rate 16 /min Irvin Hanna MD Work Phone: [facility] 12-28-2022 15:00-0400 Systolic blood pressure 119 mm[Hg] Irvin Hanna MD Work Phone: [facility] 10-13-2022 09:35-0500 Body height 165.1 cm Ibis A Myra Work Phone: [facility] 320 DO Work Phone: 10-13-2022 09:35-0500 Body mass index (BMI) [Ratio] 33.45 kg/m2 Ibis A Myra Work Phone: [facility] 320 DO Work Phone: 10-13-2022 09:35-0500 Body surface area Derived from formula 1.98 m2 Ibis A Myra Work Phone: [facility] 320 DO Work Phone: 10-13-2022 09:35-0500 Body weight 91.17 kg Ibis A Myra Work Phone: [facility] 320 DO Work Phone: 10-13-2022 09:35-0500 Diastolic blood pressure 70 mm[Hg] Ibis A Myra Work Phone: [facility] 320 DO Work Phone: 10-13-2022 09:35-0500 Heart rate 76 /min Ibis A Myra Work Phone: [facility] 320 DO Work Phone: 10-13-2022 09:35-0500 Systolic blood pressure 102 mm[Hg] Ibis A Myra Work Phone: [facility] 320 DO Work Phone: 09-11-2022 09:58-0500 Diastolic blood pressure 82 mm[Hg] Ibis A Myra Work Phone: [facility] 250 DO Work Phone: 09-11-2022 09:58-0500 Diastolic blood pressure 80 mm[Hg] Ibis A Myra Work Phone: [facility] 250 DO Work Phone: 09-11-2022 09:58-0500 Systolic blood pressure 112 mm[Hg] Ibis A Myra Work Phone: [facility] 250 DO Work Phone: 09-11-2022 09:58-0500 Systolic blood pressure 108 mm[Hg] Ibis A Myra Work Phone: [facility] 250 DO Work Phone: 09-11-2022 08:57-0500 Body height 165.1 cm Ibis A Myra Work Phone: [facility] 250 DO Work Phone: 09-11-2022 08:57-0500 Body mass index (BMI) [Ratio] 32.95 kg/m2 Ibis A Myra Work Phone: [facility] 250 DO Work Phone: 09-11-2022 08:57-0500 Body surface area Derived from formula 1.97 m2 Ibis A Myra Work Phone: [facility] 250 DO Work Phone: 09-11-2022 08:57-0500 Body weight 89.81 kg Ibis A Myra Work Phone: [facility] 250 DO Work Phone: 09-11-2022 08:57-0500 Diastolic blood pressure 68 mm[Hg] Ibis A Myra Work Phone: [facility] 250 DO Work Phone: 09-11-2022 08:57-0500 Heart rate 74 /min Ibis A Myra Work Phone: [facility] 250 DO Work Phone: 09-11-2022 08:57-0500 Systolic blood pressure 102 mm[Hg] Ibis A Myra Work Phone: [facility] 250 DO Work Phone: 07-31-2022 10:14-0500 Body weight 89.81 kg Irvin Hanna MD Work Phone: [facility] 07-31-2022 10:14-0500 Diastolic blood pressure 71 mm[Hg] Irvin Hanna MD Work Phone: [facility] 07-31-2022 10:14-0500 Heart rate 92 /min Irvin Hanna MD Work Phone: [facility] 07-31-2022 10:14-0500 Systolic blood pressure 109 mm[Hg] Irvin Hanna MD Work Phone: [facility] 07-21-2022 07:27-0400 Body height 165.1 cm Ibis A Myra Work Phone: [facility] 320 DO Work Phone: 07-21-2022 07:27-0400 Body mass index (BMI) [Ratio] 33.45 kg/m2 Ibis A Myra Work Phone: [facility] 320 DO Work Phone: 07-21-2022 07:27-0400 Body surface area Derived from formula 1.98 m2 Ibis A Myra Work Phone: [facility] 320 DO Work Phone: 07-21-2022 07:27-0400 Body weight 91.17 kg Ibis A Myra Work Phone: [facility] [facility] 320 DO Work Phone: 07-21-2022 07:27-0400 Diastolic blood pressure 72 mm[Hg] Ibis A Myra Work Phone: [facility] [facility] 320 DO Work Phone: 07-21-2022 07:27-0400 Heart rate 64 /min Ibis A Myra Work Phone: [facility] 320 DO Work Phone: 07-21-2022 07:27-0400 Systolic blood pressure 106 mm[Hg] Ibis A Myra Work Phone: [facility] 320 DO Work Phone: 07-10-2022 10:45-0400 Body height 165.1 cm Ibis A Myra Work Phone: [facility] 250 DO Work Phone: 07-10-2022 10:45-0400 Body mass index (BMI) [Ratio] 32.95 kg/m2 Ibis A Myra Work Phone: [facility] 250 DO Work Phone: 07-10-2022 10:45-0400 Body surface area Derived from formula 1.97 m2 Ibis A Myra Work Phone: [facility] 250 DO Work Phone: 07-10-2022 10:45-0400 Body weight 89.81 kg Ibis A Myra Work Phone: [facility] 250 DO Work Phone: 07-10-2022 10:45-0400 Diastolic blood pressure 70 mm[Hg] Ibis A Myra Work Phone: [facility] 250 DO Work Phone: 07-10-2022 10:45-0400 Heart rate 76 /min Ibis A Myra Work Phone: [facility] 250 DO Work Phone: 07-10-2022 10:45-0400 Systolic blood pressure 104 mm[Hg] Ibis A Myra Work Phone: [facility] 250 DO Work Phone: 06-01-2022 11:36-0400 Body height 165.1 cm TAR HEATER OPERATOR-C Ibis Myra Work Phone: [facility] 06-01-2022 11:36-0400 Body temperature 100 [degF] TAR HEATER OPERATOR-C Ibis Myra Work Phone: [facility] 06-01-2022 11:36-0400 Body weight 88.4 kg TAR HEATER OPERATOR-C Ibis Myra Work Phone: [facility] 06-01-2022 11:36-0400 Diastolic blood pressure 68 mm[Hg] TAR HEATER OPERATOR-C Ibis Myra Work Phone: [facility] 06-01-2022 11:36-0400 Heart rate 99 /min TAR HEATER OPERATOR-C Ibis Myra Work Phone: [facility] 06-01-2022 11:36-0400 Respiratory rate 18 /min TAR HEATER OPERATOR-C Ibis Myra Work Phone: [facility] 06-01-2022 11:36-0400 SaO2% (BldA) [Mass fraction] 97 % TAR HEATER OPERATOR-C Ibis Myra Work Phone: [facility] 06-01-2022 11:36-0400 Systolic blood pressure 121 mm[Hg] TAR HEATER OPERATOR-C Ibis Myra Work Phone: [facility] 05-18-2022 09:42-0400 Body height 165.1 cm Ibis A Myra Work Phone: [facility] 250 DO Work Phone: 05-18-2022 09:42-0400 Body mass index (BMI) [Ratio] 31.95 kg/m2 Ibis A Myra Work Phone: [facility] 250 DO Work Phone: 05-18-2022 09:42-0400 Body surface area Derived from formula 1.94 m2 Ibis A Myra Work Phone: [facility] 250 DO Work Phone: 05-18-2022 09:42-0400 Body weight 87.09 kg Ibis A Myra Work Phone: [facility] 250 DO Work Phone: 05-18-2022 09:42-0400 Diastolic blood pressure 74 mm[Hg] Ibis A Myra Work Phone: [facility] 250 DO Work Phone: 05-18-2022 09:42-0400 Heart rate 72 /min Ibis A Myra Work Phone: [facility] 250 DO Work Phone: 05-18-2022 09:42-0400 Systolic blood pressure 102 mm[Hg] Ibis A Mrya Work Phone: [facility] 250 DO Work Phone: 03-23-2022 09:11-0400 Diastolic blood pressure 80 mm[Hg] Ibis A Myra Work Phone: [facility] 250 DO Work Phone: 03-23-2022 09:11-0400 Systolic blood pressure 110 mm[Hg] Ibis A Myra Work Phone: [facility] 250 DO Work Phone: 03-23-2022 09:06-0400 Body height 166.37 cm Ibis A Myra Work Phone: [facility] 250 DO Work Phone: 03-23-2022 09:06-0400 Body mass index (BMI) [Ratio] 31.3 kg/m2 Ibis A Myra Work Phone: [facility] 250 DO Work Phone: 03-23-2022 09:06-0400 Body surface area Derived from formula 1.95 m2 Ibis Rhonda Myra Work Phone: [facility] 250 DO Work Phone: 03-23-2022 09:06-0400 Body weight 86.64 kg Ibis A Myra Work Phone: [facility] 250 DO Work Phone: 03-23-2022 09:06-0400 Diastolic blood pressure 76 mm[Hg] Ibis A Myra Work Phone: [facility] 250 DO Work Phone: 03-23-2022 09:06-0400 Heart rate 66 /min Ibis A Myra Work Phone: [facility] 250 DO Work Phone: 03-23-2022 09:06-0400 Systolic blood pressure 118 mm[Hg] Ibis A Myra Work Phone: [facility] 250 DO Work Phone: 01-25-2022 08:16-0400 Body height 165.1 cm Irvin Hanna MD Work Phone: [facility] 01-25-2022 08:16-0400 Body weight 86.36 kg Irvin Hanna MD Work Phone: [facility] 01-25-2022 08:16-0400 Diastolic blood pressure 83 mm[Hg] Irvin Hanna MD Work Phone: [facility] 01-25-2022 08:16-0400 Heart rate 71 /min Irvin Hanna MD Work Phone: [facility] 01-25-2022 08:16-0400 Systolic blood pressure 116 mm[Hg] Irvin Hanna MD Work Phone: [facility] 01-10-2022 12:45-0400 Body height 165.1 cm Ok Mckeon Other [facility] [employer] Other 01-10-2022 12:45-0400 Body mass index (BMI) [Ratio] 31.61 kg/m2 Ok Mckeon Other [employer] [facility] [employer] Other 01-10-2022 12:45-0400 Body temperature 97.8 [degF] Ok Mckeon Other [facility] Other 01-10-2022 12:45-0400 Body weight 86.18 kg Ok Mckeon Other [facility] Other 01-10-2022 12:45-0400 Diastolic blood pressure 80 mm[Hg] Ok Mckeon Other [facility] Other 01-10-2022 12:45-0400 SaO2% (BldA) [Mass fraction] 96 % Ok Mckeon Other [facility] Other 01-10-2022 12:45-0400 Systolic blood pressure 120 mm[Hg] Ok Mckeon Other [facility] Other 10-10-2021 15:50-0500 Body height 165.1 cm Christina Lambmond Other [facility] Other 10-10-2021 15:50-0500 Body mass index (BMI) [Ratio] 31.61 kg/m2 Christina Portia Other [facility] Other 10-10-2021 15:50-0500 Body temperature 97 [degF] Christina Lambmond Other [facility] Other 10-10-2021 15:50-0500 Body weight 86.18 kg Christina Portia Other [facility] Other 10-10-2021 15:50-0500 Diastolic blood pressure 76 mm[Hg] Christina Portia Other [facility] Other 10-10-2021 15:50-0500 Respiratory rate 18 /min Christina Portia Other [facility] Other 10-10-2021 15:50-0500 SaO2% (BldA) [Mass fraction] 99 % Christina Portia Other [facility] Other 10-10-2021 15:50-0500 Systolic blood pressure 123 mm[Hg] Christina Portia Other [employer] Other Encounters Encounter Date Encounter Type Care Provider Facility Start: 10-30-2024 End: 10-30-2024 Clinisync Result Encounter Generic External Data Provider [facility] External Department Unsolicited Start: 10-30-2024 End: 10-30-2024 Clinisync Result Encounter Generic External Data Provider [facility] External Department Unsolicited Start: 10-29-2024 End: 10-29-2024 flow sheet Osei Helena DO Work Phone: [facility] OB Comment on above: Third trimester preg presley; 31 weeks gestation of ; Heartburn Start: 10-29-2024 End: 10-29-2024 ambulatory OSEI HELENA Not Available Start: 10-29-2024 End: 10-29-2024 Bamboo flowsheet Osei [...] Only Roshni Jo RN Maternal- Medicine at [facility] Comment on above: Dichorionic diamniot ic twin in third trimester (Primary Dx) Start: 10-16-2024 End: 10-16-2024 ambulatory OSEI R HELENA [facility] Start: 10-15-2024 End: 10-15-2024 flow sheet [...] of control unspecified Start: 09-25-2024 End: 09-25-2024 ambulatory Osei Helena Facility:[facility] Start: 09-25-2024 End: 09-25-2024 Departed Referred Osei Helena DO Work Phone: [facility] Start: 09-25-2024 End: 09-25-2024 Clinisync Result Encounter Osei Helena DO Work Phone: [facility] External Department Unsolicited Start: 09-25-2024 End: 09-25-2024 Clinisync Result Encounter Osei Helena DO Work Phone: [facility] External Department Unsolicited Start: 09-25-2024 End: 09-26-2024 Telephone encounter Osei Helena DO Work Phone: [facility] Start: 09-19-2024 End: 09-26-2024 Orders Only Chrissie Willis [facility] Maternal- Medicine at [facility] Comment on above: Dichorionic diamniot ic [...] OB Start: 09-02-2024 End: 09-02-2024 ambulatory JYOTI NOBLE Facility:[facility] Comment on above: POTS (postural ortho [...] encounter Marycarmen Kennedy RN Maternal- Medicine at [facility] Start: 08-27-2024 End: 08-27-2024 BamPubCodero flowsheet Camilla TOLBERT Work Phone: [facility] CI [...] syndrome) Start: 08-27-2024 End: 08-27-2024 ambulatory CAMILLA GASTON Not Available Start: 08-20-2024 End: 08-20-2024 Clinisync Result Encounter Generic External Data Provider [facility] External Department Unsolicited Start: 08-20-2024 End: 08-20-2024 Clinisync Result Encounter Generic External Data Provider [facility] External Department Unsolicited Start: 08-15-2024 End: 08-15-2024 Orders Only Sammi Green RN Maternal- Medicine at [facility] Comment on above: Dichorionic diamniot ic twin in second trimester (Primary Dx); POTS (postural orthostatic tachycardia syndrome); Asthma during ; 20 weeks gestation of Start: 08-13-2024 End: 08-13-2024 Office outpatient new 45 minutes Muna Lenz MD Work Phone: Maternal- Medicine at [facility] Comment on above: Dichorionic diamniot ic twin in second trimester (Primary Dx); POTS (postural orthostatic tachycardia syndrome); Asthma during ; 20 weeks gestation of Start: 08-13-2024 End: 08-13-2024 ambulatory OSEI MALIK [facility] Start: 08-11-2024 End: 08-13-2024 Clinisync Result [...] Start: 07-24-2024 End: 07-24-2024 ambulatory Celeste Watson Facility:[facility] Start: 07-07-2024 End: 07-07-2024 Chart abstracting Hammad Hatch MD Work Phone: Maternal- Medicine at [facility] Start: 07-03-2024 End: 07-03-2024 flow sheet [...] Start: 07-02-2024 End: 07-02-2024 ambulatory Joie Seaman INJECTION MOLDING MACHINE TENDER.BONDED STRUCTURES REPAIRER Work Phone: Neurology Comment on above: POTS (postural ortho static tachycardia syndrome) (Primary Dx); Near syncope Start: 07-02-2024 End: 07-02-2024 Telemedicine consultation with patient Joie Seaman APRN.BONDED STRUCTURES REPAIRER Work Phone: Neurology Start: 06-10-2024 End: 06-11-2024 ambulatory Jyoti Dickey PA-C Work Phone: Neurology Comment on above: Start: 06-10-2024 End: 06-23-2024 Telephone encounter Jb Mandujano MD Work Phone: [facility] Start: 06-04-2024 End: 06-04-2024 flow sheet Osei Malik DO Work Phone: [facility] Comment [...] Start: 05-20-2024 End: 05-20-2024 Bamboo flowsheet Camilla Gaston PA Work Phone: [facility] Start: 05-20-2024 End: 05-20-2024 Bamboo flowsheet Camilla Gaston PA Work Phone: [facility] Start: 05-20-2024 End: 05-20-2024 Office outpatient visit 15 minutes Camilla Gaston PA Work Phone: [facility] Comment on above: Pain of left sacroil iac joint (Primary Dx) Start: 05-20-2024 End: 05-20-2024 ambulatory CAMILLA GASTON Not Available Start: 04-12-2024 End: 04-12-2024 ambulatory Celeste Watson [facility] Start: 04-12-2024 End: 04-12-2024 Patient encounter procedure Celeste Watson [facility] Start: 03-25-2024 Patient encounter status Camilla TOLBERT Work Phone: [facility] Start: 03-25-2024 End: 03-25-2024 ambulatory JB MANDUJANO Not Available Start: 03-20-2024 End: 03-20-2024 ambulatory Jyoti Dickey PA-C Work Phone: Neurology Comment on above: POTS (postural ortho static tachycardia syndrome) (Primary Dx) Start: 03-20-2024 End: 03-20-2024 Telemedicine consultation with patient Jyoti Gallowayedison BARNETT Work Phone: Neurology Start: 03-14-2024 End: 03-14-2024 ambulatory Celeste Watson Facility[facility] Start: 03-14-2024 End: 03-14-2024 Patient encounter procedure Celeste Watson [facility] Start: 02-26-2024 End: 02-26-2024 ambulatory JB MANDUJANO Not Available Start: 01-22-2024 ambulatory ACTUARY MANAGER Krista L Mae Facil ity:[facility] Start: 01-01-2024 End: 01-01-2024 ambulatory CELESTE WATSON Not Available Start: 12-21-2023 End: 12-21-2023 ambulatory OSEI MALIK Not Available Start: 12-11-2023 End: 12-11-2023 ambulatory ACTUARY MANAGER Krista L Mae Facility:[facility] Start: 12-11-2023 End: 12-11-2023 ambulatory CELESTESIVA FIGUEROAKES Not Available Start: 11-30-2023 End: 11-30-2023 ambulatory AURORA SANTIAGO Facility:[facility] Start: 11-30-2023 End: 11-30-2023 Patient encounter procedure Jyoti Dickey PA-C Work Phone: Neurology Comment on above: POTS (postural ortho static tachycardia syndrome) (Primary Dx) Start: 11-12-2023 End: 11-12-2023 Patient encounter procedure Autonomic 2 Neur Main [facility] Start: 11-12-2023 End: 11-12-2023 ambulatory AURORA SANTIAGO Neurology Comment on above: Procedure Start: 10-10-2023 End: 10-10-2023 ambulatory AURORA SANTIAGO Facility:[facility] Start: 07-24-2023 End: 07-24-2023 ambulatory Jocelin FELIX Facility[facility] Start: 07-20-2023 Telephone encounter Arin Tinajero RN [facility] Comment on above: Referral Follow-up Start: 07-10-2023 End: 07-10-2023 ambulatory JOSE ARMANDO GREY Facility:[facility] Start: 07-10-2023 End: 07-10-2023 Office outpatient new 30 minutes Jose Armando Rhonda in DO Work Phone: [facility] [place] Comment on above: Chronic pain of righ t knee (Primary Dx); Tendinopathy of gluteal region Start: 07-06-2023 Orders Only Jose Armando Grey DO Work Phone: Orthopaedics Comment on above: Right knee pain, uns pecified chronicity (Primary Dx) Start: 07-05-2023 End: 07-05-2023 ambulatory TAR HEATER OPERATOR-C Ibis Limer Work Phone: [facility] Work Phone: Start: 07-05-2023 End: 07-05-2023 Patient encounter procedure TAR HEATER OPERATOR-C Ibis Limer Work Phone: [facility]-Flu Vaccine Start: 06-13-2023 Office outpatient vi sit 15 minutes Ibis Limer Work Phone: -[facility] 600 DO Work Phone: Start: 06-13-2023 ambulatory Tabatha Cota Facility:1 [id number] Start: 06-08-2023 End: 06-08-2023 Emergency department patient visit TAR HEATER OPERATOR-C Ibis Limer Work Phone: [facility]-Emergency Room Work Phone: Start: 04-25-2023 End: 04-25-2023 ambulatory TAR HEATER OPERATOR-C Ibis Limer Work Phone: [facility] Work Phone: Start: 04-25-2023 End: 04-25-2023 Departed Referred TAR HEATER OPERATOR-C Ibis Limer Work Phone: [facility] [address] Work Phone: Start: 03-14-2023 ambulatory CHAN MUÑIZ Fa cility:[facility] Start: 01-18-2023 End: 01-18-2023 ambulatory TAR HEATER OPERATOR-C Ibis Maggy Limer Work Phone: [facility] Work Phone: Start: 01-18-2023 End: 01-18-2023 Departed Referred TAR HEATER OPERATOR-C Ibiseren Limer Work Phone: [facility] [address] Work Phone: Start: 12-28-2022 End: 12-28-2022 Patient encounter procedure Irvin Hanna MD Work Phone: Rheumatology Comment on above: Pain and swelling of knee, right (Primary Dx); Joint stiffness Start: 10-31-2022 Chart Update Ibis Ely cer Work Phone: [facility] 250 DO Work Phone: Start: 10-16-[address] [facility] ty:[id number] Start: 10-13-2022 Current tobacco non- user cad cap copd pv dm Ibis Renteria Work Phone: [facility] 320 DO Work Phone: Start: 10-13-[address] Annalee Pierre acility: Start: 09-11-2022 Office outpatient vi sit 15 minutes Ibis Renteria Work Phone: [facility] 250 DO Work Phone: Start: 09-11-2022 Patient encounter procedure Ibis Renteria Work Phone: [facility] [facility] 250 DO Work Phone: Start: 09-11-[address] Melodie Alfonso ty: Start: 09-07-2022 Telephone encounter Ibis Renteria Work Phone: [facility] 320 DO Work Phone: Start: 08-27-[address] Annalee Pierre acility: Start: 08-01-2022 AUDIT Ibis Arenasn cer Work Phone: [facility] 320 DO Work Phone: Start: 07-31-2022 EVENT EZEKIEL, Provider : HERIBERTO SERRANO BAND REAMER MACHINE OPERATOR 1,[id number], Status: Pen, Time: 11:00 AM Ibis Renteria Work Phone: [facility] 250 DO Work Phone: Start: 07-31-[address] Annalee Pierre acility: Start: 07-31-2022 End: 07-31-2022 Patient encounter procedure Irvin Hanna MD Work Phone: Rheumatology Comment on above: Pain and swelling of knee, right (Primary Dx); Joint stiffness; Inflammatory arthritis Start: 07-26-2022 ambulatory IBIS RENTERIA Facilit y:[facility] Start: 07-21-2022 Current tobacco non- user cad cap copd pv dm Ibis Renteria Work Phone: [facility] 320 DO Work Phone: Start: 07-21-[address] Annalee Pierre acility: Start: 07-10-2022 Office outpatient vi sit 25 minutes Ibis Renteria Work Phone: [facility] 250 DO Work Phone: Start: 07-10-2022 Patient encounter procedure Ibis Renteria Work Phone: [facility] 250 DO Work Phone: Start: 07-10-[address] Melodie Alfonso ty: Start: 06-15-2022 Telephone encounter Ibis A Myra Work Phone: [facility] 250 DO Work Phone: Start: 06-12-2022 End: 06-12-[address] Annalee Maza Facility:[id number] Start: 06-05-2022 Patient encounter procedure Ibis Rhonda Myra Work Phone: [id number] [place] [facility] Work Phone: Start: 06-01-2022 End: 06-01-2022 Emergency department patient visit TAR HEATER OPERATOR-C Ibis Myra Work Phone: [facility] Start: 05-18-2022 Office outpatient vi sit 25 minutes Ibis Rhonda Myra Work Phone: [facility] 250 DO Work Phone: Start: 05-18-2022 Patient encounter procedure Ibis Rhonda Myra Work Phone: [facility] 250 DO Work Phone: Start: 05-08-2022 End: 05-08-2022 Patient encounter procedure TAR HEATER OPERATOR-C Ibis Myra Work Phone: [facility]-Respiratory Therapy Start: 05-03-2022 Result Review Ibis Rhonda Spen cer Work Phone: [facility] 250 DO Work Phone: Start: 05-03-2022 [facility] Provider: María Elena Freire, Status: Pen, Time: 10:00 AM Ibis Rhonda Myra Work Phone: [facility] 250 DO Work Phone: Start: 05-03-2022 End: 05-03-2022 Patient encounter procedure TAR HEATER OPERATOR-C Ibis Myra Work Phone: [facility]-XRay [facility] Start: 03-28-2022 EVENT EZEKIEL, Provider : HERIBERTO SINGH BAND REAMER MACHINE OPERATOR 1,[id number], Status: Pen, Time: 8:00 AM Ibis A Myra Work Phone: [facility] 250 DO Work Phone: Start: 03-28-2022 Patient encounter procedure Ibis Rhonda Myra Work Phone: [facility] 250 DO Work Phone: Start: 03-26-2022 Chart Update Ibis Rhonda Spen cer Work Phone: [facility] 250 DO Work Phone: Start: 03-24-2022 End: 03-24-2022 Patient encounter procedure TAR HEATER OPERATOR-C Ibis Myra Work Phone: [facility]-Lab [facility] Start: 03-23-2022 Office consultation new/estab patient 60 min Ibis A Myra Work Phone: [facility] 250 DO Work Phone: Start: 03-23-2022 Office outpatient ne w 45 minutes Ibis A Myra Work Phone: [facility] Work Phone: Start: 02-02-2022 Telephone encounter Irvin shannon MD Work Phone: Rheumatology Comment on above: Orders Start: 01-25-2022 End: 01-25-2022 Patient encounter procedure Irvin Hanna MD Work Phone: Rheumatology Comment on above: Pain and swelling of knee, right (Primary Dx); Joint stiffness Start: 01-10-2022 End: 01-10-2022 ambulatory Ok Mckeon Other [facility] Other Start: 01-10-2022 Office outpatient ne w 45 minutes Ok Mckeon [facility] Start: 10-10-2021 End: 10-10-2021 ambulatory Christina Pearce Other [facility] [employer] Other Start: 10-10-2021 Office outpatient vi sit 15 minutes Christina Pearce [facility] [place] Procedures Date Procedure Procedure Detail Performing Clinician Start: 10-30-2024 OB BPP W NON-STRESS Generic External Data Provider Start: 10-29-2024 Urnls dip stick/tabl et rgnt non-auto w/o micrscp Osei Helena DO Work Phone: Start: 10-27-2024 ECG 12-LEAD Osei Fazi o DO Work Phone: Start: 10-27-2024 Ct angiography chest w/contrast/noncontrast Osei Helena DO Work Phone: Start: 10-27-2024 [facility] UA (CLEAN/CATCH) DEPUTY CHIEF COUNSEL/MICRO IF IND. Osei Helena DO Work Phone: Start: 10-23-2024 OB BPP W NON-STRESS Generic External Data Provider Start: 10-15-2024 Urnls dip stick/tabl et rgnt non-auto w/o micrscp Osei Helena DO Work Phone: Start: 10-02-2024 Urnls dip stick/tabl et rgnt non-auto w/o micrscp Osei Helena DO Work Phone: Start: 09-25-2024 [facility] UA (CLEAN/CATCH) DEPUTY CHIEF COUNSEL/MICRO IF IND. Osei Helena DO Work Phone: [...] Osei Helena DO Work Phone: Start: 07-10-2023 [facility] Pr ovider Historical Start: 06-08-2023 Plain chest X-ray TAR HEATER OPERATOR-C Ibis Renteria Work Phone: Start: 01-18-2023 Plain chest X-ray TAR HEATER OPERATOR-C Ibis Renteria Work Phone: Start: 05-03-2022 Plain chest X-ray TAR HEATER OPERATOR-C Ibis Renteria Work Phone: Start: 08-05-2021 Arthroscopy of knee Lorna Watson Arthroscopy of knee Ibis Ellis Myra Work Phone: Cryotherapy of warts Rajeev Watson Extraction of wisdom tooth Ibis Ellis Myra Work Phone: SARS-CoV-2, Influenz a & RSV (PCR) TAR HEATER OPERATOR-C Ibis Limer Work Phone: Tonsillectomy and adenoidectomy Ibis Limer Work Phone: Tonsillectomy and adenoidectomy Celeste Watson NEGATED: Highlighted row has not occurred! Total colonoscopy Ibis A Myra Work Phone: Plan of Treatment Date Care Activity Detail Author Start: 03-25-2034 DTaP,Tdap and Td Vac cines (8 - Td or Tdap) DTaP,Tdap and Td Vaccines (8 - Td or Tdap) [employer] Start: 03-25-2034 Urine microalbumin profile DTaP,Tdap,Td Vaccine (8 - Td or Tdap) [facility] Start: 08-05-2027 Screening for malign ant neoplasm of cervix Pap Smear [employer] Start: 10-17-2025 End: 10-17-2025 US MFM with or without consult US MFM with or without consult Imaging Routine Dichorionic diamniotic twin in third trimester Expected: 10/17/2025 (Approximate), Expires: 10/17/2025 [employer] Work Phone: Comment on above: Expected: 10/17/2025 (Approximate), Expires: 10/17/2025 Start: 09-19-2025 End: 09-19-2025 US MFM with or without consult US MFM with or without consult Imaging Routine Dichorionic diamniotic twin in second trimester Expected: 09/19/2025 (Approximate), Expires: 09/19/2025 [employer] Work Phone: Comment on above: Expected: 09/19/2025 (Approximate), Expires: 09/19/2025 Start: 08-15-2025 End: 08-15-2025 US MFM with or without consult US MFM with or without consult Imaging Routine Dichorionic diamniotic twin in second trimester POTS (postural orthostatic tachycardia syndrome) Asthma during 20 weeks gestation of Expected: 08/15/2025 (Approximate), Expires: 08/15/2025 [employer] Work Phone: Comment on above: Expected: 08/15/2025 (Approximate), Expires: 08/15/2025 Start: 08-13-2025 Adult BMI Screening Adult BMI Screen ing [facility] Start: 08-13-2025 Tobacco Screening Tobacco Screening [facility] Start: 11-12-2024 End: 11-12-2024 Patient encounter procedure 11/12/2024 9:30 AM EST Appointment [facility] [address] [place] [address] [facility] Start: 11-10-2024 End: 11-10-2024 Patient encounter procedure 11/10/2024 9:00 AM EST Routine [facility] [address] [facility] [id number] Osei Malik DO [address] [place] [address] [facility] Start: 10-29-2024 End: 10-29-2024 Patient encounter procedure [facility] Comment on above: Arrived Start: 10-16-2024 End: 10-16-2024 Patient encounter procedure 10/16/2024 1:00 PM EST Appointment [facility] [address] [place] [address] [facility] Start: 10-15-2024 End: 10-15-2024 Patient [...] AM EST Routine [facility] OB [address] [facility] [id number] Osei Malik DO [address] [facility] [place] [address] [facility] Start: 09-25-2024 Urine culture [facility] Start: 09-25-2024 Bacteria identified in Urine by Culture Urine Culture [facility] Start: 09-23-2024 End: 09-23-2024 Patient encounter procedure 09/23/2024 1:[address] [facility] - Ultrasound [address] [place] [address] [facility] Start: 09-19-2024 End: 09-19-2024 Patient encounter procedure 09/19/2024 9:30 AM EST Appointment [facility] [address] [place] [address] [facility] Start: 09-18-2024 End: 09-18-2024 Patient encounter procedure [facility] Comment on above: Arrived Start: 09-03-2024 End: 09-03-2024 Patient encounter procedure [facility] Comment on above: Arrived Start: 09-02-2024 End: 09-02-2024 ambulatory 09/02/2024 12:15 PM EST [facility] [address] [place] [address] Jyoti Dickey PA-C [address] [place] [address] F/u Neurology Comment on above: F/u Start: 09-02-2024 End: 09-02-2024 ambulatory 09/02/2024 10:45 AM EST [facility] [address] [place] [address] Jyoti Dickey PA-C [address] [place], [place] [id number] F/u Neurology Comment on above: F/u Start: 08-27-2024 End: 08-27-2024 Patient encounter procedure 08/27/2024 1:00 PM EST Office Visit [facility] [address] [facility] [address] [place] [address] Camilla Gaston PA [address] [place] [facility] [address] [place] [address] Arrived [facility] FM Comment on above: Arrived Start: 08-13-2024 End: 08-13-2024 Patient encounter procedure [facility] Start: 08-05-2024 End: 02-02-2025 Alpha fetoprotein, maternal Alpha fetoprotein, maternal Lab Routine Second trimester Expected: 08/05/2024 (Approximate), Expires: 02/02/2025 [facility] Comment on above: Expected: 08/05/2024 (Approximate), Expires: 02/02/2025 Start: 08-05-2024 End: 08-05-2024 Patient encounter procedure 08/05/2024 8:50 AM EST Routine [facility] [address] [place] [address] Osei Malik DO [address] [place] [address] [facility] Start: 07-03-2024 End: 07-03-2024 Patient encounter procedure [facility] Comment on above: Arrived Start: 06-04-2024 End: 06-04-2024 Patient encounter procedure [facility] Comment on above: Arrived Start: 05-25-2024 Covid-19 Vaccine () Covid-19 Vaccine () [facility] Start: 05-25-2024 Covid-19 Vaccine () Covid-19 Vaccine () [facility] Start: 05-25-2024 Influenza vaccination [facility] Start: 05-23-2024 End: 05-23-2025 ABO/Rh ABO/Rh Lab Routine Missed menses Expected: 05/23/2024 (Approximate), Expires: 05/23/2025 [facility] Healthcare Comment on above: Expected: 05/23/2024 (Approximate), Expires: 05/23/2025 Start: 05-23-2024 End: 05-23-2025 Blood type and Indirect antibody screen panel - Blood Type and screen Lab Routine Missed menses Expected: 05/23/2024 (Approximate), Expires: 05/23/2025 [facility] Healthcare Work Phone: Comment on above: Expected: 05/23/2024 (Approximate), Expires: 05/23/2025 Start: 05-23-2024 End: 05-23-2025 US Pelvis transvaginal US OB transvaginal Imaging Routine Missed menses Expected: 05/23/2024 (Approximate), Expires: 05/23/2025 [facility] Healthcare Comment on above: Expected: 05/23/2024 (Approximate), Expires: 05/23/2025 Start: 05-23-2024 End: 05-23-2024 ambulatory 05/23/2024 9:00 AM EDT Initial [facility] [address] [place] [id number] [facility] Start: 05-23-2024 End: 05-23-2024 Professional / ancillary services management 05/23/2024 8:30 AM EDT Ancillary Procedure [facility] [address] [facility] [place] [address] [facility] Start: 05-20-2024 End: 05-20-2024 Patient encounter procedure 05/20/2024 9:30 AM EDT Office Visit [facility] [address] [facility] [address] [place] [phone] Camilla Gaston PA [address] [facility] [address] [place] [address] Arrived [facility] Comment on above: Arrived Start: 04-20-2024 Urine microalbumin profile DTaP,Tdap,Td Vaccine (7 - Td or Tdap) [facility] Start: 09-24-2023 Depression Assessment Depression Ass essment [facility] Start: 05-25-2023 Covid-19 Vaccine ( season) Covid-19 Vaccine () [facility] Start: 05-25-2023 Influenza vaccination [facility] Start: 04-25-2023 [facility] Start: 04-06-2023 FUV, Provider: Annalee Maza, Status: Pen, Time: 2:40 PM FUV, Provider: Annalee Maza, Status: Pen, Time: 2:40 PM [facility] 320 DO Work Phone: Start: 2022 PAP TESTING PAP TESTING [facility] Start: 2022 Screening for malign ant neoplasm of cervix [facility] Start: 10-13-2022 FUV, Provider: Annalee Maza, Status: Pen, Time: 9:20 AM FUV, Provider: Annalee Maza, Status: Pen, Time: 9[facility] [facility] Work Phone: Start: 09-24-2022 DEPRESSION ASSESSMENT DEPRESSION ASS ESSMENT [facility] Start: 09-11-2022 FUV, Provider: Melodie Alcaraz, Status: Pen, Time: 9:30 AM FUV, Provider: Melodie Alcaraz, Status: Pen, Time: 9:30 AM -[facility] 250 DO Work Phone: Start: 09-11-2022 EVENT EZEKIEL, Provider : HERIBERTO SINGH BAND REAMER MACHINE OPERATOR 1,[id number], Status: Pen, Time: 8:30 AM EVENT EZEKIEL, Provider: HERIBERTO SINGH BAND REAMER MACHINE OPERATOR 1,[id number], Status: Pen, Time: 8:30 AM -[facility] 320 DO Work Phone: Start: 08-14-2022 EVENT EZEKIEL, Provider : MONICA [id number] BAND REAMER MACHINE OPERATOR 1,[id number], Status: Pen, Time: 10:00 AM EVENT EZEKIEL, Provider: HERIBERTO [id number] BAND REAMER MACHINE OPERATOR 1,[id number], Status: Pen, Time: 10:00 AM [facility] 250 DO Work Phone: Start: 07-21-2022 NPVRFRL, Provider: Annalee Maza, Status: Pen, Time: 7:20 AM NPVRFRL, Provider: Annalee Maza, Status: Pen, Time: 7:20 AM -[facility] 250 DO Work Phone: Start: 07-10-2022 FUV, Provider: Melodie Alcaraz, Status: Pen, Time: 10:45 AM FUV, Provider: Melodie Alcaraz, Status: Pen, Time: 10:45 AM [facility] 250 DO Work Phone: Start: 06-05-2022 [facility], Provider: Annalee Maza, Status: Pen, Time: 10:00 AM [facility], Provider: Annalee Maza, Status: Pen, Time: 10:00 AM [facility] DO Work Phone: Start: 05-25-2022 Influenza vaccination [facility] Start: 05-18-2022 [facility], Provider: Melodie Alcaraz, Status: Pen, Time: 9:15 AM [facility], Provider: Melodie Alcaraz, Status: Pen, Time: 9:15 AM -[facility] 250 DO Work Phone: Start: 05-08-2022 End: 05-08-2022 [facility] Start: 05-03-2022 [facility], Provider: María Elena Freire, Status: Pen, Time: 10:00 AM [facility], Provider: María Elena Freire, Status: Pen, Time: 10:00 AM [facility] 250 DO Work Phone: Start: 03-28-2022 EVENT EZEKIEL, Provider : HERIBERTO SINGH BAND REAMER MACHINE OPERATOR 1,[id number], Status: Pen, Time: 8:00 AM [facility], Provider: HERIBERTO SINGH BAND REAMER MACHINE OPERATOR 1,[id number], Status: Pen, Time: 8:00 AM [facility] 250 DO Work Phone: Start: 01-25-2022 End: 03-27-2022 Chronic hepatitis differentiation between hepatitis B and C virus panel - Serum or Plasma [facility] Work Phone: Comment on above: Expected: 01/25/2022 , Expires: 03/27/2022 Start: 01-25-2022 End: 03-27-2022 Complement C1 esterase inhibitor [Mass/volume] in Serum or Plasma [facility] Work Phone: Comment on above: Expected: 01/25/2022 , Expires: 03/27/2022 Start: 01-25-2022 End: 03-27-2022 Complement C2 [Mass/volume] in Serum or Plasma [facility] Work Phone: Comment on above: Expected: 01/25/2022 , Expires: 03/27/2022 Start: 09-24-2021 DEPRESSION ASSESSMENT DEPRESSION ASS ESSMENT [facility] Start: 06-16-2021 COVID-19 VACCINE (3 - Booster for Pfizer series) COVID-19 VACCINE (3 - Booster for Pfizer series) [facility] Start: 03-11-2021 COVID-19 VACCINE (3 - Booster for Pfizer series) COVID-19 VACCINE (3 - Booster for Pfizer series) [facility] Start: 02-11-2021 COVID-19 VACCINE (3 - Pfizer risk series) COVID-19 VACCINE (3 - Pfizer risk series) [facility] Start: 2020 SHINGRIX VACCINE (1 of 2) VANG GRIX VACCINE (1 of 2) [facility] Start: 2020 Urine microalbumin profile [facility] Start: 12-03-2019 Adult BMI Follow Up Plan Adult BMI Follow Up Plan [facility] Start: 12-03-2019 Adult BMI Screening Adult BMI Screen ing [facility] Start: 12-03-2019 Anxiety Screening Anxiety Screening [facility] Start: 12-03-2019 CHLAMYDIA SCREENING () CHLAMYDIA SCREENING () [facility] Start: 12-03-2019 Depression Screening Depression Scre ening [facility] Start: 12-03-2019 GC (GONORRHEA) SCREE NINI () GC (GONORRHEA) SCREENING () [facility] Start: 12-03-2019 HEPATITIS C SCREENING HEPATITIS C SC REENING [facility] Start: 12-03-2019 HIV SCREENING HIV SCREENING [facility] Start: 12-03-2019 HIV screening HIV Screening [facility] Start: 12-03-2019 Screening for Chlamy taylor trachomatis Chlamydia Screening () [facility] Start: 2017 Meningococcal B Vacc ine: Consider Based On Risk (1 of 2 - Patient Seeks Protection) Meningococcal B Vaccine: Consider Based On Risk (1 of 2 - Patient Seeks Protection) [facility] Start: 12-03-2015 PEDS TO ADULT TRANSI TION ANNUAL ASSESSMENT PEDS TO ADULT TRANSITION ANNUAL ASSESSMENT [facility] Start: 2013 Adult depression screening assessment DEPRESSION SCREENING [facility] Start: 2013 PEDS TO ADULT TRANSI TION INITIAL DISCUSSION PEDS TO ADULT TRANSITION INITIAL DISCUSSION [facility] Start: 2013 Tobacco Screening Tobacco Screening [facility] Start: 2012 HPV VACCINE (1 - 2-d ose series) HPV VACCINE (1 - 2-dose series) [facility] Start: 12-03-2011 MENINGOCOCCAL B: Con bb shot packer based on risk (1 of 2 - Risk Bexsero 2-dose series) MENINGOCOCCAL B: Consider based on risk (1 of 2 - Risk Bexsero 2-dose series) [facility] Start: 2010 HPV Vaccine (1 - 2-d ose series) HPV Vaccine (1 - 2-dose series) [facility] Start: 2010 HPV VACCINES (1 - 2- dose series) HPV VACCINES (1 - 2-dose series) [facility] Start: 2008 DTaP/Tdap/Td VACCINE S (1 - Tdap) DTaP/Tdap/Td VACCINES (1 - Tdap) [facility] Start: 12-03-2007 PNEUMOCOCCAL (1 - PCV) PNEUMOCOCCAL (1 - PCV) [facility] Start: 2002 MMR VACCINES (1 of 1 - Standard series) MMR VACCINES (1 of 1 - Standard series) [facility] Start: 2002 VARICELLA VACCINES ( 1 of 2 - 2-dose childhood series) VARICELLA VACCINES (1 of 2 - 2-dose childhood series) [facility] Start: 06-04-2002 COVID-19 Vaccine (#1) COVID-19 Vacci ne (#1) [facility] Start: 2001 HEPATITIS B (1 of 3 - 3-dose series) HEPATITIS B (1 of 3 - 3-dose series) [facility] Start: 2001 Hepatitis B Vaccine (1 of 3 - 3-dose series) Hepatitis B Vaccine (1 of 3 - 3-dose series) [facility] Start: 2001 HEPATITIS B VACCINES (1 of 3 - 3-dose series) HEPATITIS B VACCINES (1 of 3 - 3-dose series) [facility] Start: 2001 Screening for Chlamy taylor trachomatis Chlamydia Screening [facility] Bacteria identified in Urine by Culture Urine culture Microbiology Routine Missed menses Ordered: 05/23/2024 [facility] Comment on above: Ordered: 05/23/2024 CBC W Auto Different ial panel - Blood CBC and differential Lab Routine Missed menses Ordered: 05/23/2024 [facility] Comment on above: Ordered: 05/23/2024 CHLAMYDIA TRACHOMATI S (GENITO/STI) CHLAMYDIA TRACHOMATIS (GENITO/STI) Lab Routine STD exposure Ordered: 08/05/2024 [facility] Comment on above: Ordered: 08/05/2024 Cytology Cervical or vaginal smear or scraping study Pap Smear Pathology and Cytology Routine Well woman exam with routine gynecological exam Ordered: 08/05/2024 [facility] Comment on above: Ordered: 08/05/2024 Hemoglobin A1c/Hemoglobin.total in Blood Hemoglobin A1c Lab Routine Missed menses Ordered: 05/23/2024 [facility] Comment on above: Ordered: 05/23/2024 Hepatitis B virus ramirez rface Ag [Presence] in Serum or Plasma by Immunoassay Hepatitis B surface antigen Lab Routine Missed menses Ordered: 05/23/2024 [facility] Comment on above: Ordered: 05/23/2024 Hepatitis C virus Ab [Presence] in Serum or Plasma by Immunoassay Hepatitis C antibody Lab Routine Missed menses Ordered: 05/23/2024 [facility] Comment on above: Ordered: 05/23/2024 HIV-1/HIV-2 antigen/antibody combination immunoassay HIV-1 and HIV-2 antibodies Lab Routine Missed menses Ordered: 05/23/2024 [facility] Comment on above: Ordered: 05/23/2024 Neisseria gonorrhoea e DNA [Presence] in Unspecified specimen by PERFECTO with probe detection Neisseria gonorrhea DNA probe, direct Lab Routine STD exposure Ordered: 08/05/2024 [facility] Comment on above: Ordered: 08/05/2024 Patient Education [facility] Work Phone: Patient referral [facility] Work Phone: Reagin Ab [Presence] in Serum by RPR RPR Lab Routine Missed menses Ordered: 05/23/2024 [facility] Comment on above: Ordered: 05/23/2024 Rubella antibody, IgG Rubella an tibody, IgG Lab Routine Missed menses Ordered: 05/23/2024 [facility] Comment on above: Ordered: 05/23/2024 SURESWAB(R) ADVANCED VAGINITIS PLUS, TMA SURESWAB(R) ADVANCED VAGINITIS PLUS, TMA Pathology and Cytology Routine Vaginal discharge Ordered: 08/05/2024 [facility] Work Phone: Comment on above: Ordered: 08/05/2024 End: 08-04-2024 XR KNEE GENERAL 4V AP BOTH/PA BOTH/LAT/MERC RIGHT XR KNEE GENERAL 4V AP BOTH/PA BOTH/LAT/MERC RIGHT Radiology Routine Right knee pain, unspecified chronicity 1 Occurrences starting 07/06/2023 until 08/04/2024 [facility] Work Phone: Comment on above: 1 Occurrences starti ng 07/06/2023 until 08/04/2024 [facility] Immunizations Immunization Date Immunization Notes Care Provider Cheryl harden 07-24-2024 influenza, seasonal, injectable, preservative free Camilla Hemrosita PA Work Phone: [facility] Work Phone: 03-25-2024 tetanus toxoid, redu richar diphtheria toxoid, and acellular pertussis vaccine, adsorbed Camilla Hemmer PA Work Phone: [facility] 07-05-2023 influenza virus vaccine, unspecified formulation Celeste Watson [facility] 07-05-2023 influenza, injectabl e, quadrivalent, preservative free Camilla Hemrosita PA Work Phone: [facility] 01-14-2021 Pfizer-BioNTech COVID-19 Vacc 30 MCG/0.3ML Intramuscular Suspension Ibis A Myra Work Phone: [facility] Comment on above: Result Comment: 2023: TPVAL 12-24-2020 Pfizer-BioNTech COVID-19 Vacc 30 MCG/0.3ML Intramuscular Suspension Ibis A Myra Work Phone: [facility] Comment on above: Result Comment: 2023: TPVAL 12-11-2017 meningococcal polysaccharide (groups A, C, Y and W-135) diphtheria toxoid conjugate vaccine (MCV4P) Christina Pearce Other [employer] Other 12-11-2017 meningococcal ACWY vaccine, unspecified formulation Celeste Rinkes [facility] 11-06-2014 human papilloma viru s vaccine, quadrivalent Christina Portia Other [employer] Other 11-06-2014 HPV, unspecified formulation [employer] Myra [facility] Work Phone: 06-26-2014 HPV, unspecified formulation Celeste Rinkes [facility] 06-26-2014 human papilloma viru s vaccine, quadrivalent Christina Portia Other [employer] Other 04-20-2014 human papilloma viru s vaccine, quadrivalent Christina Portia Other [employer] Other 04-20-2014 meningococcal polysaccharide (groups A, C, Y and W-135) diphtheria toxoid conjugate vaccine (MCV4P) Christina Portia Other [employer] [facility] [employer] Other 04-20-2014 tetanus toxoid, redu richar diphtheria toxoid, and acellular pertussis vaccine, adsorbed Christina Portia Other [facility] 04-20-2014 HPV, unspecified formulation Celeste Rinkes [facility] 04-20-2014 meningococcal ACWY vaccine, unspecified formulation Celeste Rinkes [facility] 12-27-2006 diphtheria, tetanus toxoids and acellular pertussis vaccine, unspecified formulation [employer] My[employer] Work Phone: [facility] [employer] 250 DO Work Phone: 12-27-2006 DTaP, unspecified formulation Celeste Rinkes [facility] 12-27-2006 measles, mumps, rubella, and varicella virus vaccine [employer] My[employer] Work Phone: [facility] 12-27-2006 poliovirus vaccine, inactivated Ibis A Myra Work Phone: [facility] DO Work Phone: 12-27-2006 poliovirus vaccine, unspecified formulation Celeste Rinkes [facility] 02-06-2003 diphtheria, tetanus toxoids and acellular pertussis vaccine, unspecified formulation [employer]bis A Myra Work Phone: [facility] Work Phone: 02-06-2003 DTaP, unspecified formulation Celeste Rinkes [facility] 02-06-2003 haemophilus influenz ae type b vaccine, conjugate unspecified formulation [employer]bis [employer] Myra Work Phone: [facility] [employer] DO Work Phone: 02-06-2003 Hib, unspecified formulation Celeste RinCloudDock [facility] 02-06-2003 measles, mumps and rubella virus vaccine Ibis A Myra Work Phone: [facility] 02-06-2003 varicella virus vaccine Susan ica A Myra Work Phone: [facility] 07-02-2002 diphtheria, tetanus toxoids and acellular pertussis vaccine, unspecified formulation [employer] Work Phone: [facility] 250 DO Work Phone: 07-02-2002 DTaP, unspecified formulation Celeste Rinkes [facility] 07-02-2002 haemophilus influenz ae type b vaccine, conjugate unspecified formulation [employer] Myra Work Phone: [facility] 250 DO Work Phone: 07-02-2002 Hib, unspecified formulation [employer] [facility] 07-02-2002 pneumococcal conjuga te vaccine, 7 valent Ibis A Myra Work Phone: [facility] 250 DO Work Phone: 07-02-2002 poliovirus vaccine, inactivated [employer] Work Phone: [facility] 250 DO Work Phone: 07-02-2002 poliovirus vaccine, unspecified formulation [employer] [facility] 05-19-2002 diphtheria, tetanus toxoids and acellular pertussis vaccine, unspecified formulation [employer] Work Phone: [facility] [employer] DO Work Phone: 05-19-2002 DTaP, unspecified formulation [employer] [facility] 05-19-2002 haemophilus influenz ae type b conjugate and Hepatitis B vaccine [employer] Work Phone: [facility] 250 DO Work Phone: 05-19-2002 pneumococcal conjuga te vaccine, 7 valent [employer] Work Phone: [facility] 250 DO Work Phone: 05-19-2002 poliovirus vaccine, inactivated [employer] Work Phone: [facility] 250 DO Work Phone: 05-19-2002 poliovirus vaccine, unspecified formulation Celeste Rinradha [facility] 03-05-2002 diphtheria, tetanus toxoids and acellular pertussis vaccine, unspecified formulation [employer] Myra [facility] Work Phone: 03-05-2002 DTaP, unspecified formulation Celeste Rinkes [facility] 03-05-2002 haemophilus influenz ae type b conjugate and Hepatitis B vaccine [employer] My[employer] [facility] Phone[facility] Work Phone: 03-05-2002 poliovirus vaccine, inactivated [employer] Myra Work Phone: [facility] DO Work Phone: 03-05-2002 poliovirus vaccine, unspecified formulation Celeste Shirley [facility] 2001 hepatitis B vaccine, pediatric or pediatric/adolescent dosage [employer] Myra Work Phone: [facility] Payers Date Payer Category Payer Self-pay [id number] 2023 Unknown [id number] 2022 Medicaid [facility] MEDIC A[facility] [id number] 2021 Private Health Insurance [id number]. [id number] 2021 Private Health Insurance [id number] 2.16.840.1.642129.19 2020 Private Health Insurance [facility] CHOICE PLUS [id number] 2020-Present [phone] [address] [place] [address] HMO [id number]. [id number] 2020 Unknown [id number] 2017 Managed Care Other (unspecified) [id number]. [id number] 2013 Medicaid [employer] [id number] 2013-Present [phone] [address] [place] [address] Medicaid [id number]. [id number] 2013 Medicaid [id number] [id number]. [id number] 2007 Unknown [id number] 2.16.840.1.824948.19 2001 Unknown [id number] 2.16.840.1.220207.3.579.2. 1068 2001 Unknown [id number] 2.16.840.1.324895.3.579.2. 594 2001 Unknown [id number] 2.16.840.1.519692.3.579.2. 594 2001 Unknown [id number] 2.16.840.1.521343.3.579.2. 356 2001 Unknown [id number] 2.16.840.1.521930.3.579.2. 356 2001 Unknown [id number] 2.16.840.1.364229.3.579.2. 356 2001 Unknown [id number] 2.16.840.1.954640.3.579.2. 356 2001 Unknown [id number] 2.16.840.1.469842.3.579.2. 356 2001 Unknown [id number] 2.16.840.1.503060.3.579.2. 356 2001 Unknown [id number] 2.16.840.1.235316.3.579.2. 356 2001 Unknown [id number] 2.16.840.1.776014.3.579.2. 356 2001 Unknown [id number] 2.16.840.1.369511.3.579.2. 727 2001 Unknown [id number] 2.16.840.1.804447.3.579.2. 727 2001 Unknown [id number] 2.16.840.1.871065.3.579.2. 727 2001 Unknown [id number] 2.16.840.1.558335.3.579.2. 727 2001 Unknown [id number] 2.16.840.1.398514.3.579.2. 727 2001 Unknown [id number] 2.16.840.1.866281.3.579.2. 1286 2001 Unknown [id number] 2.16.840.1.026561.3.579.2. 1286 2001 Unknown [id number] 2.16.840.1.217934.3.579.2. 1286 2001 Unknown [id number] 2.16.840.1.616204.3.579.2. 128 2001 Unknown [id number] 2.16.840.1.927991.3.579.2. 1258 2001 Unknown [id number] 2.16.840.1.269990.3.579.2. 1258 2001 Unknown [id number] 2.16.840.1.972731.3.579.2. 1258 2001 Unknown [id number] 2.16.840.1.953916.3.579.2. 1258 2001 Unknown [id number] 2.16.840.1.241363.3.579.2. 1258 2001 Unknown [id number] 2.16.840.1.077774.3.579.2. 1258 2001 Unknown [id number] 2.16.840.1.972218.3.579.2. 1258 2001 Unknown [id number] 2.16.840.1.350323.3.579.2. 1258 2001 Unknown [id number] 2.16.840.1.278863.3.579.2. 1258 2001 Unknown [id number] 2.16.840.1.767279.3.579.2. 1258 2001 Unknown [id number] 2.16.840.1.585886.3.579.2. 1258 2001 Unknown [id number] 2.16.840.1.840015.3.579.2. 1258 2001 Unknown [id number] 2.16.840.1.368412.3.579.2. 1258 2001 Unknown [id number] 2.16.840.1.348287.3.579.2. 1258 2001 Unknown [id number] 2.16.840.1.180778.3.579.2. 1258 2001 Unknown [id number] 2.16.840.1.293881.3.579.2. 1258 Unknown Unknown [place] BC/BS [id number] Unknown [id number] 2.16.840.1.727449.3.579.2. 531 Social History Date Type Detail Facility Tobacco smoking stat us NHIS Tobacco smoking consumption unknown [facility] Work Phone: Start: 2001 Sex Assigned At Not on file [facility] Start: 01-15-2022 End: 07-31-2022 Exposure to SARS-CoV-2 (event) Not sure [facility] Start: 12-28-2022 End: 02-25-2024 Sex Assigned At [facility] Start: 12-28-2022 End: 02-25-2024 No alcohol use No alcohol use [facility] Comment on above: very rarely soda; Start: 09-20-2019 End: 02-20-2023 Tobacco smoking status NVIS Never smoked tobacco (finding) [facility] Start: 2001 Sex Assigned At Female F [facility] Start: 07-31-2022 End: 02-20-2023 Tobacco use and exposure Smokeless tobacco non-user [facility] Adult Depression Screening Assessment 0 [facility] Start: 09-29-2023 Gender identity Identifies as female gender (finding) [facility] Start: 06-04-2024 End: 10-27-2024 Alcoholic beverage intake Ex-drinker (finding) [facility] Do you belong to any clubs or organizations such as religion groups, unions, fraternal or athletic groups, or [...] Start: 04-05-2024 [facility] Start: 04-27-2015 End: 09-26-2024 Sex Female (finding) [facility] NEGATED: Highlighted rowStart: NINF History of tobacco use Passive smoker [facility] Medical Equipment Procedure Code Equipment Code Equipment Origin al Text Equipment Identifier Dates 1 strip by In Vi tro route Daily Use in the morning prior to breakfast, 1 hour after each meal for a total of 4times daily. [id number] Start: 09-18-2024 End: 10-18-2024 1 each by In Vit ro route Daily Use to check FSBS four times daily [id number] Start: 09-18-2024 End: 10-18-2024 Clinical Notes 09-24-2007 to 10-29-2024 Camilla Bar, [facility] - 10/29/2024 3:50 PM Teresa Bar, [facility] - 10/15/2024 3:30 PM Titi Mendes, [facility] - 10/02/2024 11:00 AM ESTTelephone Encounter - Pilar Celeste, [facility] - 09/25/2024 12:42 PM EST Note Date & Type Note Facility 10-29-2024 History of Present illness Narrative Reason for [...] HISTORY Past Surgical History: Procedure Laterality Date CT ANGIOGRAM CHEST 10/27/2024 CT ANGIOGRAM CHEST HAND SURGERY Bilateral Wart removal bilateral hands [...] nursing note reviewed. Exam conducted with a counter pocket sewer present. Vitals: Estimated body mass index is 38.27 kg/m as calculated from the following: Height as of 08/27/24: 5' 5 . Weight as of this encounter: 230 lb. BP: 112/68 Patient's last menstrual period was 03/22/2024. ASSESSMENT & PLAN ICD-10-CM 1. Third trimester Z34.93 POCT urinalysis dipstick manually resulted 2. 31 weeks gestation of Z3A.31 Return OB: Patient presents today for a routine obstetrics appointment. Patient is currently 31w4d . Patient states she is doing well [...] Osei Malik DO documented in this encounter [facility] 10-15-2024 History of Present illness Narrative Reason [...] nursing note reviewed. Exam conducted with a counter pocket sewer present. Vitals: Estimated body mass index is [...] Osei Malik DO documented in this encounter [facility] 10-02-2024 History of Present illness Narrative [...] nursing note reviewed. Exam conducted with a counter pocket sewer present. Vitals: Estimated body mass index is [...] Osei Malik DO documented in this encounter [facility] 09-25-2024 Telephone encounter Note Patient called [...] today. Patient was advised to report to [facility] for check and she was asking if she could go to [facility] as that's closer she was advised we prefer [place] but she can go where she is comfortable. Patient states will go to [facility] as she is at work and that's closer right now. Patient advised note would be in chart. [facility] Work Phone: 09-25-2024 Miscellaneous Notes Patient [...] today. Patient was advised to report to [facility] for check and she was asking if she could go to [facility] as that's closer she was advised we prefer [place] but she can go where she is comfortable. Patient states will go to [facility] as she is at work and that's closer right now. Patient advised note would be in chart. documented in this encounter [facility] 09-18-2024 History of Present illness Narrative [...] nursing note reviewed. Exam conducted with a counter pocket sewer present. Vitals: Estimated body mass index is [...] Osei Malik DO documented in this encounter [facility] 09-03-2024 History of Present illness Narrative [...] Osei Malik DO documented in this encounter [facility] 09-02-2024 History of Present illness Narrative Images from the original note were not included. [facility] Follow-Up VIRTUAL VISIT This is a virtual visit using [employer] Video Visit. It required patient-provider interaction for the medical decision making as documented below. I have communicated my name and active licensure. The patient's identity and physical location were verified at the time of this visit. Either the patient or their legal clearance representative has been informed of the risks [...] which included preparing to see the patient, [id number] patient care, completing clinical documentation, obtaining and/or reviewing separately obtained history, performing a medically appropriate examination, and counseling and educating the patient/family/caregiver. Jyoti Dickey PA-C Neuromuscular Medicine [address] [place] [address]. [id number] Appointment: [phone] During our virtual visit encounter we discussed [...] bright light?: Mild documented in this encounter [facility] 09-02-2024 Note HNO ID: [id number] Author: JYOTI DICKEY PA-C Service: ? Author Type: Physician Weaver Needle Loom Type: Progress Notes Filed: 09/02/2024 11:21 Note Text: [facility] Follow-Up VIRTUAL VISIT This is a virtual visit using [employer] Video Visit. It required patient-provider interaction for the medical decision making as documented below. I have communicated my name and active licensure. The patient's identity and physical location were verified at the time of this visit. Either the patient or their legal clearance representative has been informed of the risks [...] female here t (more content not included)... [facility] 08-29-2024 Miscellaneous Notes Sales Clerk Food spoke to patient . Patient has complains of SOB which she states is mainly at night time. She has recently seen her PCP who stated that her lungs are tight/restricted and prescribed her an inhaler. Today the patient is feeling better and states that when she checked her SPO2 today it was at 96%. Sales Clerk Food advised patient to monitor and if her O2 Sat falls under 95% and/or the inhaler does not help to present to her nearest ER. Patient verbalized understanding. documented in this encounter [facility] 08-29-2024 Telephone encounter Note Sales Clerk Food spoke to patient . Patient has complains of SOB which she states is mainly at night time. She has recently seen her PCP who stated that her lungs are tight/restricted and prescribed her an inhaler. Today the patient is feeling better and states that when she checked her SPO2 today it was at 96%. Sales Clerk Food advised patient to monitor and if her O2 Sat falls under 95% and/or the inhaler does not help to present to her nearest ER. Patient verbalized understanding. [facility] 08-27-2024 Telephone encounter Note Alternative inhaler requested by pharmacy. [facility] 08-27-2024 Miscellaneous Notes Alternative inhaler requested by pharmacy. documented in this encounter [facility] 08-27-2024 History of Present illness Narrative Images from the original note were not included. Subjective Patient ID: Madyson Mai is a 23 y.o. female who presents for asthma. Madyson is present today for evaluation of asthma. Admits she is 22 weeks with twins, she is not sure if that is what is flaring up her asthma. She has not see her bark spudder in a couple of years and her [...] acute exacerbation ([facility]) - fluticasone (Flovent HFA) 110 MCG/ACT inhaler; [...] fail to improve. documented in this encounter [facility] 08-13-2024 History of Present illness Narrative [...] no Have you been seen here at [facility] in a previous ? no Recent ER visits or hospitalizations? no Bring blood sugar log or meter with you today? (Please bring them with you for every visit at [facility]) n/a Flu vaccine (Jul-November)? Yes Any [...] Resource Strain: Low Risk (02/25/2024) Received from [facility] Overall Financial Resource Strain (CARDIA) Difficulty of Paying Living Expenses: Not very hard Food Insecurity: No Food Insecurity (08/13/2024) Hunger Screening Food Insecurity - Worry: Never True Food Insecurity - Inability: Never True Transportation Needs: No Transportation Needs (02/25/2024) Received from [facility] PRAPARE - Transportation Lack of Transportation (Medical): No Lack of Transportation (Non-Medical): No Physical Activity: Inactive (02/25/2024) Received from [facility] Exercise Vital Sign Days of Exercise per Week: 0 days Minutes of Exercise per Session: 0 min Stress: No Stress Concern Present (02/25/2024) Received from [facility] [place] [employer] Occupational [employer] - Occupational Stress Questionnaire Feeling of Stress : Only a little Social Connections: Moderately Integrated (02/25/2024) Received from [facility] Social Connection and Isolation Panel [NHANES] Frequency of Communication with Friends and Family: More than three times a week Frequency of Social Gatherings with Friends and Family: Three times a week Attends Oriental Orthodox Services: More than 4 times per year Active Member of Clubs or Organizations: No Attends Club or Organization Meetings: Patient declined Marital Status: Interpersonal Safety: Not on file Housing Instability: Low Risk (02/25/2024) Received from [facility] Housing Stability Vital Sign Unable to [...] complications, or both, related to use. The [place] [employer] and the [...] tachycardia syndrome) She follows with Neurology at [facility]. Last visit was on 07/02/2024. External records reviewed. 07/02/2024 - General Neurology, Joie Seaman APRN.BONDED STRUCTURES REPAIRER ASSESSMENT Madyson Mai is a 23 year [...] continue with routine care in your office [facility], the CDC, and other organizations representing maternal and public health professionals recommend that , , and lactating people and those considering receive the COVID-19 vaccination. Vaccination is the best method to reduce maternal and complications of SARS-CoV-2 infection. This document was created with PPTV technology. Though I make every effort to review the dictation as it is transcribed, on occasion the spoken word can be misinterpreted by the technology leading to inappropriate words, phrases, or sentences. This note is addressed to the requesting provider as a consultation for clinical guidance. Specific medical abbreviations are occasionally used and those are generally approved by the [place]?Board of?Obstetrics and?Gynecology?as well as?Loretta s abbreviations. The above plan of care was based solely on the diagnoses for which a consultation was requested. ?More frequent testing may be indicated based on her other medical/obstetrical conditions. The management of other or medical conditions is beyond the scope of requested consultation and will continue to be followed by the primary doggy daycare activities director or primary care provider. Thank you for [...] procedures Referring and communicating with other health cattle care worker (not separately reported) Documenting clinical information in the electronic or other health record Independently interpreting results (not separately reported) and communicating results to the patient/family/caregiver Care coordination (not separately reported) documented in this encounter [facility] 08-06-2024 Telephone encounter Note Can we have her schedule for a follow up appointment. Can be virtual or in person. BREANNE Ballesteros [facility] Work Phone: 08-06-2024 Miscellaneous Notes Can we have her schedule for a follow up appointment. Can be virtual or in person. BREANNE Ballesteros documented in this encounter [facility] 08-05-2024 History of Present illness [...] nursing note reviewed. Exam conducted with a counter pocket sewer present. Vitals: Estimated body mass index is [...] obtained without difficulty and [facility]. Orders Placed This Encounter Procedures CHLAMYDIA TRACHOMATIS (GENITO/STI) Neisseria gonorrhea DNA probe, direct Alpha fetoprotein, maternal POCT urinalysis dipstick manually resulted Follow Up: Patient is to return to our office in 4 weeks for routine OB appointment Documented by Annika Silva LPN on behalf of: TOMASZ Rizvi documented in this encounter [facility] 07-03-2024 History of Present illness Narrative [...] current . Patient is being referred to [facility] for her twin , gave her information about who she will be seeing there. No orders of the defined types were placed in this encounter. Follow Up: Patient is to return to office in 4 weeks for routine OB appointment. Documented by Ibis Sandoval on behalf of: TOMASZ Rizvi documented in this encounter [facility] 07-02-2024 History of Present illness Narrative Images from the original note were not included. [facility] General Neurology Follow Up / Established Virtual Visit I have communicated my name and active licensure. The patient's identity and physical location were verified at the time of this visit. Either the patient or their legal clearance representative has been informed of the risks and benefits of -- and alternatives to -- treatment through a remote evaluation and consents to proceed with the evaluation remotely. Individuals who were included in, or assisted with the encounter were: Madyson Seaman APRN.BONDED STRUCTURES REPAIRER Chief Complaint/Issues: Madyson Mai is a 23 year old female seen in the [facility] for General Neurology for: POTS Most [...] Plan 07/02/2024 - General Neurology, Joie Seaman APRN.BONDED STRUCTURES REPAIRER ASSESSMENT Madyson Mai is a 23 year [...] which included preparing to see the patient, aond-mt-alvy patient care, completing clinical documentation, obtaining and/or reviewing separately obtained history, performing a medically appropriate examination, counseling and educating the patient/family/caregiver, and ordering medications, tests, or procedures. Joie Seaman APRN.BONDED STRUCTURES REPAIRER 06/28/2024 [facility] [employer] [facility] Physical Health Summary [...] and warrants attention documented in this encounter [facility] 07-02-2024 Note HNO ID: [id number] Author: JOIE SEAMAN APRN.HAMZAH Service: ? Author Type: Nurse Practitioner Type: Progress Notes Filed: 07/02/2024 19:57 Note Text: [facility]rology Follow Up / Established Virtual Visit I have communicated my name and active licensure. The patient's identity and physical location were verified at the time of this visit. Either the patient or their legal clearance representative has been informed of the risks and benefits of -- and alternatives to -- treatment through a remote evaluation and consents to proceed with the evaluation remotely. Individuals who were included in, or assisted with the encounter were: Madyson Seaman APRN.HAMZAH Chief Complaint/Issues: Madyson Mai is a 23 year old female seen in the [facility] for General Neurology for: POTS Most [...] Plan 07/02/2024 - General Neurology, Joie Seaman, JOHNNY.BONDED STRUCTURES REPAIRER ASSESSMENT Madyson Mai is a 23 year [...] Mostly Moderately S (more content not included)... [facility] 06-04-2024 History of Present illness Narrative [...] nursing note reviewed. Exam conducted with a counter pocket sewer present. Vitals: Estimated body mass index is [...] possibly adding medication. Pt being referred to [facility] for TWIN gestation. Expectations throughout regarding labs, ultrasounds, and appointments have been discussed with the patient in detail. It was reiterated that the patient is to drink 6-8 glasses of water a day, eat 6 small meals a day, do not consume raw or undercooked meat, and stay away from [facility]. Patient has been consulted regarding any further do's and don'ts of . Patient voiced understanding and all questions and concerns were answered. Orders Placed This Encounter Procedures POCT urinalysis dipstick manually resulted Follow Up: Patient is to return in 4 weeks for routine OB appointment. Documented by Camilla Bar LPN on behalf of: Osei Malik DO documented in this encounter [facility] 05-23-2024 History of Present illness Narrative [...] providers found * documented in this encounter [facility] 05-20-2024 History of Present illness Narrative [...] topical cream for less systemic absorption. Consider manager critical care. Can provide pt with referral to PT if symptoms do not improve with the above. X-rays not yet indicated, especially as pt is . Follow up if symptoms worsen or fail to improve. documented in this encounter [facility] 03-20-2024 History of Present illness Narrative Images from the original note were not included. [facility] Neu[facility] Follow-Up VIRTUAL VISIT This is a virtual visit using [employer] Video Visit. It required patient-provider interaction for the medical decision making as documented below. I have communicated my name and active licensure. The patient's identity and physical location were verified at the time of this visit. Either the patient or their legal clearance representative has been informed of the risks [...] which included preparing to see the patient, qvyk-cf-qdxb patient care, completing clinical documentation, obtaining and/or reviewing separately obtained history, performing a medically appropriate examination, counseling and educating the patient/family/caregiver, and ordering medications, tests, or procedures. Jyoti Dickey PA-C Neuromuscular Medicine [address] [place]. [address] Appointment: [phone] During our virtual visit encounter we discussed [...] problem? : Mild documented in this encounter [facility] 03-20-2024 Note HNO ID: [id number] Author: JYOTI DICKEY PA-C Service: ? Author Type: Physician Weaver Needle Loom Type: Progress Notes Filed: 03/20/2024 15:17 Note Text: [facility] Neuromuscular Medicine Follow-Up VIRTUAL VISIT This is a virtual visit using [employer] Video Visit. It required patient-provider interaction for the medical decision making as documented below. I have communicated my name and active licensure. The patient's identity and physical location were verified at the time of this visit. Either the patient or their legal clearance representative has been informed of the risks [...] the mean hea (more content not included)... [facility] 11-30-2023 History of Present illness Narrative Images from the original note were not included. [facility] Neuromuscular Medicine New Patient Evaluation [...] experienced LOC while walking up the stairs. [place] prodromal symptoms including lightheadedness and tunnel vision. [...] Plantarflexion 5/5 5/5 Movement/Coordination Finger-to- nose-finger and ijhv-on-svdv intact bilaterally. No evidence of ataxia arms. [...] which included preparing to see the patient, lwif-vx-wgfp patient care, completing clinical documentation, obtaining and/or [...] on 11/30/23. Jyoti Dickey PA-C Neuromuscular Medicine [facility] [place]. [address] Appointment: [phone] 1. This office note has been dictated [...] problem? : Moderate documented in this encounter [facility] 11-30-2023 Note HNO ID: [id number] Author: JYOTI DICKEY PA-C Service: ? Author Type: Physician Weaver Needle Loom Type: Progress Notes Filed: 11/30/2023 11:14 Note Text: [facility] Neuromuscular Medicine New Patient Evaluation [...] experienced LOC while walking up the stairs. [place] prodromal symptoms including lightheadedness and tunnel vision. [...] breathing: - Tac (more content not included)... [facility] 11-12-2023 Note HNO ID: [id number] Author: ?, ?, ? Service: ? Author [...] Care Visit completed when applicable. Gauri Harris [facility] 11-12-2023 History of Present illness Narrative [...] applicable. Gauri Harris documented in this encounter [facility] 10-10-2023 Note HNO ID: [id number] Author: AURORA SANTIAGO PA-C Service: ? Author Type: Physician Weaver Needle Loom Type: Progress Notes Filed: 10/10/2023 16:33 Note Text: [facility] for Neuromuscular Medicine New Patient Evaluation [...] No current facility-adminis (more content not included)... [facility] 10-10-2023 Note HNO ID: [id number] Author: ANGELIQUE RUTH MD Service: ? Author [...] VE Couplets or VE Triplets were present. [facility] 07-20-2023 Telephone encounter Note Call to Madyson to discuss referral to dysautonomia clinic. Informed her that we are unable to provide dysautonomia evaluation at this time. Provided number for [facility] scheduling service. No other needs at this time. [facility] 07-20-2023 Miscellaneous Notes Call to Madyson to discuss referral to dysautonomia clinic. Informed her that we are unable to provide dysautonomia evaluation at this time. Provided number for [facility] scheduling service. No other needs at this time. documented in this encounter [facility] 07-10-2023 Note HNO ID: [id number] Author: Jose Armando Grey, DO Service: ? Author Type: Physician Type: Progress Notes Filed: 07/10/2023 10:08 AM Note Text: [facility] Office Visit Documentation Note [facility] Sports Medicine Orthopaedic and Rheumatologic [place] HISTORY OF PRESENT ILLNESS (HPI) CHIEF COMPLAINT / REASON FOR VISIT SERVICE DATE: July 10, 2023 PCP: No primary care provider on file. Madyson Schmid is here today at request of Dr. Jose Armando Schmid specifically for consultation of my opinion in regards to the chief complaint listed below. Correspondence will be shared today via the [employer] electronic health record or through regular mail, [...] expectations. She need to consider PT or personalized living assistant. Reaction knee brace Consider [place] toradol, did discuss orthobiologics Follow up: Films prior to visit: Written instructions (see patient instructions) and verbal health education given to patient. Patient verbalizes understanding and agrees with the treatment plan. Jose Armando Grey D.O. [facility] Orthopaedic and Rheumatologic Senior Ux Developer, [facility] AND T.E.A.M. Program Team Physician, [facility] Baseball Club Consulting Physician, [place] Nagel, Cable Assembler [phone] [facility] 07-10-2023 History of Present illness Narrative Images from the original note were not included. [facility] Office Visit Documentation Note [facility] Sports Medicine Orthopaedic and Rheumatologic [place] HISTORY OF PRESENT ILLNESS (HPI) CHIEF COMPLAINT / REASON FOR VISIT SERVICE DATE: July 10, 2023 PCP: No primary care provider on file. Madyson Schmid is here today at request of Dr. Jose Armando Schmid specifically for consultation of my opinion in regards to the chief complaint listed below. Correspondence will be shared today via the [employer] electronic health record or through regular mail, [...] expectations. She need to consider PT or personalized living assistant. Reaction knee brace Consider [place] toradol, did discuss orthobiologics Follow up: Films prior to visit: Written instructions (see patient instructions) and verbal health education given to patient. Patient verbalizes understanding and agrees with the treatment plan. Jose Armando Grey D.O. [facility] Orthopaedic and Rheumatologic Senior Ux Developer, [facility] & T.E.A.M. Program Team Physician, [facility] Baseball Club Consulting Physician, [place] Nagel, Cable Assembler [phone] documented in this encounter [facility] 12-28-2022 History of Present illness [...] surgery Evaluated by DR Case ([facility]) in 2020 no rheum issue found and [...] Swollen Glands: No documented in this encounter [facility] 07-31-2022 History of Present illness [...] surgery Evaluated by DR Case ([facility]) in 2020 no rheum issue found and [...] Swollen Glands: No documented in this encounter [facility] 07-10-2022 History of Present illness [...] she did get a second opinion in [facility], and no change in medication was suggested [...] with paucity of objective findings on the [id number]. Abnormal tilt table test, with a combination [...] I will defer that to Dr. Link MEYERS-[facility]-[place] [address] DO Work Phone: 06-12-2022 Note Pre-procedure Verifi cation and Time Out: Pre-Procedure Verification and Time Out: Procedure Locationbedside PRE-PROCEDURE Verificationcompleted TIME OUT - Final Verificationcompleted immediately prior to procedure start General Information: Anesthesia Critical Care: Non-Anesthesia Date/Time of Procedure: 12-Jun-2022 Post-Procedure Diagnosis: syncope Procedure Name: tilt table test Findings: grossly normal anatomy Procedure performed by: vt Weaver Needle Loom(s): none Estimated Blood Loss (mL): none Specimen: [...] Last Updated: 14-Jun-2022 11:56 by Annalee Maza) [facility] 03-24-2022 History of Present illness Narrative [...] while walking to the bathroom.She will see bark spudder in the near future, she had her [...] that, we will have to schedule at [facility], and patient is okay with driving.4. Lifestyle modifications such as regular aerobic activity as tolerated, excessive sodium intake, and possibly low-dose beta-blockers can be tried. If her breathing gets worse on the beta-blockers, then she should stop it. We will decide after seen by pulmonary, and also after the results of culpable test are available. -[facility]-Jerome Cheek DO Work Phone: 03-24-2022 History of [...] while walking to the bathroom.She will see bark spudder in the near future, she had her pulmonary function test which I reviewed, there is concern for chronic asthma, but no reactive airway disease.She has 3 dogs that she had, and 1 cat at home.She is not orthostatic. She is feeling palpitations quite a bit.Results of the pulmonary function test and a Micah of [employer] was reviewed. Also reviewed stress test and [...] that, we will have to schedule at [facility], and patient is okay with driving.4. Lifestyle modifications such as regular aerobic activity as tolerated, excessive sodium intake, and possibly low-dose beta-blockers can be tried. If her breathing gets worse on the beta-blockers, then she should stop it. We will decide after seen by pulmonary, and also after the results of culpable test are available. -[facility]-eJrome Cheek DO Work Phone: 02-02-2022 Miscellaneous Notes [...] P Mathai, MD documented in this encounter [facility] 01-25-2022 History of Present illness [...] torn meniscus so had arthroscopic surgery on 11/21 - found a lot of scar tissue, cleaned it out, but no improvement after surgery Interesting history- new onset sob, had Echo and found to have trace mitral and tricuspid and trace pulmonic regurgitation. 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 [facility] 01-17-2022 Evaluation note* Encounter Date Diagnosis [...] day as needed for pain and swelling. [facility] 07-01-2021 History of Present illness Narrative* [...] heart murmur and has been transferred to [facility] * There is no family [...] needed, treatment options, risks, benefits, and imponderables. [place] [employer] lifestyle changes and behavioral modification discussed. All questions answered in detail. Counseling over 50% visit regarding above. Patientappreciative of care. * At the end the office visit, she did report that she will be seeing an predictive maintenance specialist in [facility]. We did discuss that she could hold [...] errors as software dictation application being used. -[facility] [address] DO Work Phone: [phone] History of Present illness Narrative* She is [...] exposed to secondhand smoke from her mother. [facility] Moerae Matrix DO Work Phone: [phone] [id number] History of Present illness Narrative* Patient is [...] twin brother had to be taken to [facility], and has history of heart murmur. * [...] [facility] Work Phone: [phone] 666-134207-01-2020 History of Present illness Narrative* Patient is [...] twin brother had to be taken to [facility], and has history of heart murmur. * [...] arise, * Sincerely, * Melodie alcaraz MD [place] [address] DO Work Phone: [phone] History of Present illness Narrative* Patient is [...] twin brother had to be taken to [facility], and has history of heart murmur. * [...] arise, * Sincerely, * Melodie alcaraz MD [facility] [employer] 250 DO Work Phone: [phone] 106-322101-01-2008 History general Narrative - Reported* Type Description Date Medical History general health good Surgical History tonsillectomy and adenoidectomy 09/2007 [facility] Other 01-01-2008 History general Narrative - Reported* Type Description Date Medical History general health good Surgical History tonsillectomy and adenoidectomy 09/2007 Surgical History right knee cleaned up scar tiss ue 2020 [facility] Other Chiiu complaint Narrative - ReportedMADYSON SCHMID is being seen for a cardiovascular evaluation of abnormal test(s) results and dyspnea.[facility] [employer] 250 DO Work Phone: Chiwt complaint Narrative - ReportedMADYSON SCHMID is being seen for a cardiovascular evaluation of abnormal test(s) results and dyspnea.[facility] Work Phone: Evaluation + Plan note No data available for this section [facility] Diagnosis Pain and swelling of knee, right- Primary Joint stiffness Stiffness of joint, not elsewhere classified, unspecified site documented in this encounter [facility] noteNo assessment [facility] Work Phone: Evaluation note* Diagnosis Pain and swelling of knee, right- Primary Joint stiffness Stiffness of joint, not elsewhere classified, unspecified site Inflammatory arthritis Unspecified inflammatory polyarthropathy [facility] Pain and swelling of knee, right- Primary Joint stiffness Stiffness of joint, not elsewhere classified, unspecified site [facility] Diagnosis Right knee pain, unspecified chronicity- Primary [facility] Diagnosis Chronic pain of right knee- Primary Tendinopathy of gluteal region Unspecified disorder of synovium, tendon, and bursa [facility] Diagnosis Orthostatic lightheadedness- Primary Dizziness and giddiness documented [facility] Diagnosis POTS (postural orthostatic tachycardia syndrome)- Primary Tachycardia, unspecified [facility] Diagnosis POTS (postural orthostatic tachycardia syndrome)- Primary Tachycardia, unspecified [facility] Diagnosis POTS (postural orthostatic tachycardia syndrome)- Primary Tachycardia, unspecified Near syncope Syncope and collapse [facility]* Diagnosis Second trimester state, incidental 14 weeks gestation of documented in this encounter [facility]* Diagnosis Thumb pain, right- [...] Leg cramping Heartburn documented in this encounter [facility]* Diagnosis Dichorionic diamniotic twin in second trimester- Primary POTS (postural orthostatic tachycardia syndrome) Unspecified tachycardia Asthma during 20 weeks gestation of [facility] Diagnosis Dichorionic diamniotic twin in second trimester- Primary POTS (postural orthostatic tachycardia syndrome) Unspecified tachycardia Asthma during 20 weeks gestation of [facility]* Diagnosis Thumb pain, [...] syndrome) Unspecified tachycardia documented in this encounter [facility]* Diagnosis Thumb pain, right- [...] without complication (CMS/HCC) documented in this encounter [facility]* Diagnosis POTS (postural orthostatic tachycardia syndrome)- Primary Tachycardia, unspecified 23 weeks gestation of state, incidental [facility] Diagnosis Thumb pain, right- Primary De Quervain's disease (tenosynovitis) Radial styloid tenosynovitis PCOS (polycystic ovarian syndrome) Polycystic ovaries POTS (postural orthostatic tachycardia syndrome) Unspecified tachycardia Tension headache- Primary Encounter for immunization POTS (postural orthostatic tachycardia syndrome) Unspecified tachycardia Well adult exam Routine general medical examination at a [facility] Dichorionic diamniotic twin in second trimester 23 weeks gestation of documented in this encounter [facility]* Diagnosis Pain of left sacroiliac joint- Primary documented in this encounter [facility]* Diagnosis Missed menses documented in this encounter [facility]* Diagnosis Twin gestation, unable to determine number of placenta and number of amniotic sacs in first trimester POTS (postural orthostatic tachycardia syndrome) Unspecified tachycardia documented in this encounter [facility]* Diagnosis Thumb pain, right- [...] Other subacute sinusitis documented in this encounter [facility]* Diagnosis Dichorionic diamniotic twin in second trimester- Primary [facility]* Diagnosis Thumb pain, [...] second trimester documented [facility]* Diagnosis Thumb pain, right- Primary De Quervain's disease (tenosynovitis) Radial styloid tenosynovitis PCOS (polycystic ovarian syndrome) Polycystic ovaries POTS (postural orthostatic tachycardia syndrome) Unspecified tachycardia Tension headache- Primary Encounter for immunization POTS (postural orthostatic tachycardia syndrome) Unspecified tachycardia Well adult exam Routine general medical examination at a health care facility Third trimester state, incidental 31 weeks gestation of Heartburn documented in this encounter [facility] HealthcareHistory of [...] heart murmur and had been [facility] * There is no change [...] patient that she saw Dr. Muñiz at [facility] for second opinion regarding neurally mediated syncope and near syncope. He agreed with evaluation and management and patient opted to follow-up here at [facility] [place]. * Zio patch August 2022. All rhythms [...] needed, treatment options, risks, benefits, and imponderables. [employer] lifestyle changes and behavioral modification discussed. All questions answered in detail. Counseling over 50% visit regarding above. Patient appreciative of care. * Grammar * Please excuse grammatical or dictation errors as software dictation application being used. -[facility] 320 DO Work Phone: History of Present illness Narrative* The patient states she has been generally stable since the last visit. * Symptoms: denies chest pain at rest, denies exertional chest pain, denies dyspnea, stable fatigue, denies exercise intolerance, stable palpitations, denies edema, denies orthopnea, stable dizziness and stable orthostatic dizziness. * Disease Monitoring: [facility] 600 DO Work Phone: Hospital Discharge instructions No data available for this section [facility] HospitalInstructionsNot on filedocumented in this encounter [facility] SystemInstructionsNot on filedocumented in this encounter [facility] SystemInstructionsNot on filedocumented in this encounter [facility] SystemInstructionsNot on filedocumented in this encounter [facility] SystemInstructionsNot on filedocumented in this encounter [facility] SystemProgress note No data available for this section [facility] HospitalReason for referral (narrative)* Diagnostic Procedure Only (Routine) - Pending Review Specialty Diagnoses / Procedures Referred By Rachel lópez Referred To Contact XR IMAGING Diagnoses Right knee pain, unspecified chronicity Procedures XR KNEE GENERAL 4V AP BOTH/PA BOTH/LAT/MERC RIGHT RADIOLOGIC EXAM KNEE COMPLETE 4/[place] [address] [place] [address] [place] [address] Referral ID Status Reason Start Date Expiration Date Visits Requested Visits Authorized [id number] Pending Review Auto-Generat ed Referral 3 08/04/2024 1 1 [facility] for visit Narrativerash knee referral from Cj Jaimes, She gets a funny rash on her knee and toesNorth A2B Other Summary Purpose Family History Unknown Family [...] We reviewed in detail the March 2022 day ROSA, Jul 2022 ZIO monitor and [...] Complaint low bp high hr flu vaccine Chief Complaint Admit Date Unknown September 25, 2024 2: 10pm Additional Source Comments Source Comments (unrecognize d section and content) In the event this informatio n is protected by the Federal Confidentiality of Alcohol and Drug Abuse Patient Records regulations: The Federal rules restrict any use of the information to criminally investigate or prosecute any alcohol or drug abuse patient.[facility] Center[facility] the event this information is protected by the Federal Confidentiality of Alcohol and Drug Abuse Patient Records regulations: The Federal rules restrict any use of the information to criminally investigate or prosecute any alcohol or drug abuse patient.[facility] CenterIn the event this information is protected by the Federal Confidentiality of Alcohol and Drug Abuse Patient Records regulations: The Federal rules restrict any use of the information to criminally investigate or prosecute any alcohol or drug abuse patient.[facility] CenterIn the event this information is protected by the Federal Confidentiality of Alcohol and Drug Abuse Patient Records regulations: The Federal rules restrict any use of the information to criminally investigate or prosecute any alcohol or drug abuse patient.[facility] CenterIn the event this information is protected by the Federal Confidentiality of Alcohol and Drug Abuse Patient Records regulations: The Federal rules restrict any use of the information to criminally investigate or prosecute any alcohol or drug abuse patient.[facility] CenterIn the event this information is protected by the Federal Confidentiality of Alcohol and Drug Abuse Patient Records regulations: The Federal rules restrict any use of the information to criminally investigate or prosecute any alcohol or drug abuse patient.[facility] CenterIn the event this information is protected by the Federal Confidentiality of Alcohol and Drug Abuse Patient Records regulations: The Federal rules restrict any use of the information to criminally investigate or prosecute any alcohol or drug abuse patient.[facility] CenterIn the event this information is protected by the Federal Confidentiality of Alcohol and Drug Abuse Patient Records regulations: The Federal rules restrict any use of the information to criminally investigate or prosecute any alcohol or drug abuse patient.[facility] CenterIn the event this information is protected by the Federal Confidentiality of Alcohol and Drug Abuse Patient Records regulations: The Federal rules restrict any use of the information to criminally investigate or prosecute any alcohol or drug abuse patient.[facility] CenterIn the event this information is protected by the Federal Confidentiality of Alcohol and Drug Abuse Patient Records regulations: The Federal rules restrict any use of the information to criminally investigate or prosecute any alcohol or drug abuse patient.[facility] CenterIn the event this information is protected by the Federal Confidentiality of Alcohol and Drug Abuse Patient Records regulations: The Federal rules restrict any use of the information to criminally investigate or prosecute any alcohol or drug abuse patient.[facility] CenterIn the event this information is protected by the Federal Confidentiality of Alcohol and Drug Abuse Patient Records regulations: The Federal rules restrict any use of the information to criminally investigate or prosecute any alcohol or drug abuse patient.[facility] CenterIn the event this information is protected by the Federal Confidentiality of Alcohol and Drug Abuse Patient Records regulations: The Federal rules restrict any use of the information to criminally investigate or prosecute any alcohol or drug abuse patient.[facility] Reason for Visit (unrecogniz ed [...] section and content) DATE CREATED AUTHOR 02/03/2022 [facility] DATE CREATED AUTHOR AUTHOR'S ORGANIZ ATION 06/24/2022 [facility] DATE CREATED AUTHOR AUTHOR'S ORGANIZ ATION 09/15/2022 [facility] DATE CREATED AUTHOR AUTHOR'S ORGANIZ ATION 03/16/2023 [facility] DATE CREATED AUTHOR AUTHOR'S ORGANIZ ATION 06/15/2023 [facility] DATE CREATED AUTHOR AUTHOR'S ORGANIZ ATION 07/11/2023 [facility] DATE CREATED AUTHOR AUTHOR'S ORGANIZ ATION 03/15/2024 [facility] DATE CREATED AUTHOR AUTHOR'S ORGANIZ ATION 04/15/2024 [facility] DATE CREATED AUTHOR AUTHOR'S ORGANIZ ATION 07/11/2024 [facility] DATE CREATED AUTHOR AUTHOR'S ORGANIZ ATION 07/26/2024 [facility] DATE CREATED AUTHOR AUTHOR'S ORGANIZ ATION 09/05/2024 [facility] DATE CREATED AUTHOR AUTHOR'S ORGANIZ ATION 10/03/2024 [facility] DATE CREATED AUTHOR AUTHOR'S ORGANIZ ATION 10/18/2024 [facility] DATE CREATED AUTHOR AUTHOR'S ORGANIZ ATION 11/01/2024 [facility] EPIC Care Teams (unrecognized sec tion and content) Team Status: Inactive Member Role Status Dates Ibis Renteria , TAR HEATER OPERATOR-C Primary Care Provider Activ e Guerita Davidson NP-C Attending Provider Active Team Status: Inactive Member Role Status Dates Ibis Renteria , TAR HEATER OPERATOR-C Primary Care Provider Activ e Melodie Alcaraz MD Attending Provider Active Team Status: Inactive Member Role Status Dates Ibis Renteria , TAR HEATER OPERATOR-C Primary Care Provider Activ e Melodie Alcaraz MD Attending Provider Active Álvaro Osborn MD Referring Provider Active Team Status: Active Member Role Status Dates Ibis Renteria , TAR HEATER OPERATOR-C Primary Care Provider Activ e Team Status: Inactive Member Role Status Dates Ibis Renteria , TAR HEATER OPERATOR-C Primary Care Provider Activ e Dyllan Pearce APRN Emergency Provider Active Team Status: Inactive Member Role Status Dates Ibis Renteria , TAR HEATER OPERATOR-C Primary Care Provider Activ e Christina Perez APRN Attending Provider Active Team Status: Inactive Member Role Status Dates Ibis Renteria , TAR HEATER OPERATOR-C Primary Care Provider Activ e Carlitos Nguyen Jr, DO Attending Provider Active Transit Department Clerk Relationship Specialty Start Date End Date Ibis Renteria BONDED STRUCTURES REPAIRER [address] [place] [address] PCP - General Nurse Practitioner 07/09/23 Transit Department Clerk Relationship Specialty Start Date End Date Ibis Renteria BONDED STRUCTURES REPAIRER [address] [place] [address] PCP - General Nurse Practitioner 07/09/23 Team Status: Inactive Member Role Status Dates Ibis Renteria , TAR HEATER OPERATOR-C Primary Care Provider Activ e Haris Martino DO Emergency Provider Active Team Status: Inactive Member Role Status Dates Ibis Renteria , TAR HEATER OPERATOR-C Primary Care Provider Activ e Nam Barnes DO [facility] Attending Provider Active Transit Department Clerk Relationship Specialty Start Date End Date Jb Mandujano MD [address] [place] [facility] [address] [place] [address] PCP - General Family Medicine 05/20/24 Osei Malik DO [address] [place] [address] Referring Physician Obstetrics and Gynecology 06/05/24 Flori Gil PA [address] [place] [address] Physician Weaver Needle Loom Obstetrics and Gynecology 06/05/24 Transit Department Clerk Relationship Specialty Start Date End Date Jb Mandujano MD [address] [address] PCP - General Family Medicine 05/20/24 Osei Malik, DO [address] [place] [address] Referring Physician Obstetrics and Gynecology 06/05/24 Flori Gil PA [address] [place] [address] Physician Weaver Needle Loom Obstetrics and Gynecology 06/05/24 Transit Department Clerk Relationship Specialty Start Date End Date Asuncion Boateng MD [address] [place] [id number] PCP - General 11/30/17 Transit Department Clerk Relationship Specialty Start Date End Date Jb Mandujano MD [address] [place] [address] [place] [address] PCP - General Family Medicine 05/20/24 Osei Malik, DO [address] [place] [address] Referring Physician Obstetrics and Gynecology 06/05/24 Flori Gil PA [address] [place] [address] Physician Weaver [employer] Loom Obstetrics and Gynecology 06/05/24 Transit Department Clerk Relationship Specialty Start Date End Date Jb Mandujano MD [address] [place] [address] PCP - General Family Medicine 05/20/24 Osei Malik, DO [address] [place] [address] Referring Physician Obstetrics and Gynecology 06/05/24 Flori Gil PA [address] [place] [address] Physician Weaver [employer]oom Obstetrics and Gynecology 06/05/24 Transit Department Clerk Relationship Specialty Start Date End Date Jb Mandujano MD [address] [facility] [address] [place] [address] PCP - General Family Medicine 05/20/24 Osei Malik, DO [address] [place] [address] Referring Physician Obstetrics and Gynecology 06/05/24 Flori Gil PA [address] [place] [address] Physician Weaver [employer] Loom Obstetrics and Gynecology 06/05/24 Transit Department Clerk Relationship Specialty Start Date End Date Asuncion Boateng MD [address] [place] [id number] PCP - General 11/30/17 Transit Department Clerk Relationship Specialty Start Date End Date Jb Mandujano MD [address] [facility] [address] [place] [address] PCP - General Family Medicine 05/20/24 Osei Malik DO [facility] [place] [address] Referring Physician Obstetrics and Gynecology 06/05/24 Flori Gil PA [facility] [place] [address] Physician Weaver Need[employer] Loom Obstetrics and Gynecology 06/05/24 Transit Department Clerk Relationship Specialty Start Date End Date Jb Mandujano MD [address] [facility] [address] [place] [address] PCP - General Family Medicine 05/20/24 Osei Malik DO [facility] [place] [address] Referring Physician Obstetrics and Gynecology 06/05/24 Flori Gil PA [facility] [place] [address] Physician Weaver [employer] Loom Obstetrics and Gynecology 06/05/24 Transit Department Clerk Relationship Specialty Start Date End Date Asuncion Boateng MD [address] [place] [id number] PCP - General 11/30/17 Transit Department Clerk Relationship Specialty Start Date End Date Jb Mandujano MD [address] [address] PCP - General Family Medicine 05/20/24 Osei Malik DO [address] [place] [address] Referring Physician Obstetrics and Gynecology 06/05/24 Flori Gil PA [address] [place] [address] Physician Weaver Need[employer] Loom Obstetrics and Gynecology 06/05/24 Transit Department Clerk Relationship Specialty Start Date End Date Jb Mandujano MD [address] [place] [address] PCP - General Family Medicine 05/20/24 Osei Malik DO [address] [place] [address] Referring Physician Obstetrics and Gynecology 06/05/24 Flori Gil PA [address] [place] [address] Physician Weaver [employer]oom Obstetrics and Gynecology 06/05/24 Transit Department Clerk Relationship Specialty Start Date End Date Asuncion Boateng MD [address] [place] [address] PCP - General 11/30/17 Transit Department Clerk Relationship Specialty Start Date End Date Jb Mandujano MD [address] [place] [address] [place] [address] PCP - General Family Medicine 05/20/24 Osei Malik DO [address] [place] [address] Referring Physician Obstetrics and Gynecology 06/05/24 Flori Gil PA [address] [place] [address] Physician Weaver Need[employer] Loom Obstetrics and Gynecology 06/05/24 Transit Department Clerk Relationship Specialty Start Date End Date Jb Mandujano MD [address] [facility] [address] [place] [address] PCP - General Family Medicine 05/20/24 Transit Department Clerk Relationship Specialty Start Date End Date Jb Mandujano MD [address] [facility] [address] [place] [address] PCP - General Family Medicine 05/20/24 Transit Department Clerk Relationship Specialty Start Date End Date Jb Mandujano MD [address] [facility] [address] [place] [address] PCP - General Family Medicine 05/20/24 Transit Department Clerk Relationship Specialty Start Date End Date Jb Mandujano MD [address] [facility] [address] [place] [address] PCP - General Family Medicine 05/20/24 Transit Department Clerk Relationship Specialty Start Date End Date Jb Mandujano MD [address] [facility] [address] [place] [address] PCP - General Family Medicine 05/20/24 Osei Malik DO [address] [place], [place] [address] Referring Physician Obstetrics and Gynecology 06/05/24 Flori Gil PA [address] [place] [place], [place] [address] Physician [employer] Obstetrics and Gynecology 06/05/24 Transit Department Clerk Relationship Specialty Start Date End Date Jb Mandujano MD [address] [place] [facility] [address] [place] [address] PCP - General Family Medicine 05/20/24 Osei Malik, DO [address] [place] [address] Referring Physician Obstetrics and Gynecology 06/05/24 Flori Gil PA [address] [place] [address] Physician Weaver [employer] Obstetrics and Gynecology 06/05/24 Transit Department Clerk Relationship Specialty Start Date End Date Jb Mandujano MD [address] [place] [address] PCP - General Family Medicine 05/20/24 Osei Malik, DO [address] [place] [address] Referring Physician Obstetrics and Gynecology 06/05/24 Flori Gil PA [address] [place] [address] Physician [employer] Obstetrics and Gynecology 06/05/24 Transit Department Clerk Relationship Specialty Start Date End Date Jb Mandujano MD [address] [place] [address] [place] [address] PCP - General Family Medicine 05/20/24 Osei Malik, DO [address] [place] [address] Referring Physician Obstetrics and Gynecology 06/05/24 Flori Gil PA [address] [place] [address] Physician [employer] Obstetrics and Gynecology 06/05/24 Transit Department Clerk Relationship Specialty Start Date End Date Asuncion Boateng MD [address] [place] [id number] PCP - General 11/30/17 Team Status: Inactive Member Role Status Dates Osei Malik DO Attending Provider Active Start : September 25, 2024 End: September 25, 2024 Transit Department Clerk Relationship Specialty Start Date End Date Jb Mandujano MD [address] [facility] [address] [place] [address] PCP - General Family Medicine 05/20/24 Osei Malik DO [address] [place] [address] Referring Physician Obstetrics and Gynecology 06/05/24 Flori Gil PA [address] [place] [address] Physician Weaver [employer] Obstetrics and Gynecology 06/05/24 Transit Department Clerk Relationship Specialty Start Date End Date Jb Mandujano MD [address] [facility] [place] [address] PCP - General Family Medicine 05/20/24 Osei Malik DO [address] [place] [address] Referring Physician Obstetrics and Gynecology 06/05/24 Flori Gil PA [address] [place] [address] Physician [employer] Obstetrics and Gynecology 06/05/24 Transit Department Clerk Relationship Specialty Start Date End Date Asuncion Boateng MD [address] [place] [id number] PCP - General 11/30/17 Transit Department Clerk Relationship Specialty Start Date End Date Jb Mandujano MD [address] [facility] [address] [place] [address] PCP - General Family Medicine 05/20/24 Osei Malik, DO [address] [place] [address] Referring Physician Obstetrics and Gynecology 06/05/24 Flori Gil PA [address] [place] [address] Physician [employer] Obstetrics and Gynecology 06/05/24 Transit Department Clerk Relationship Specialty Start Date End Date Jb Mandujano MD [address] [address] PCP - General Family Medicine 05/20/24 Osei Malik, DO [address] [place] [address] Referring Physician Obstetrics and Gynecology 06/05/24 Flori Gil PA [address] [place] [address] Physician [employer] Obstetrics and Gynecology 06/05/24 Transit Department Clerk Relationship Specialty Start Date End Date Jb Mandujano MD [address] [address] [place] [address] PCP - General Family Medicine 05/20/24 Osei Malik DO [address] [place] [address] Referring Physician Obstetrics and Gynecology 06/05/24 Flori Gil PA [address] [place] [address] Physician [employer] Obstetrics and Gynecology 06/05/24 Goals (unrecognized section [...] BE BASED ON THE PRIMARY CLINICAL RECORDS. [facility]. provides no warranty or guarantee of the accuracy or completeness of information in this document.
[2024-11-05 17:04] VITALS: BP 135/90; PULSE 110
--- NOTE | 2024-11-05 17:40 | US_ITS ---
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 BREATHING MOVEMENTS: 2/2 GROSS BODY MOVEMENTS: 2/2 TONE: 2 / 2) QUALITATIVE AMNIOTIC FLUID VOLUME: 2 / 2) PRESENTATION: Cephalic / transverse with head to maternal left HEART RATE: 134 bpm / 125 bpm AMNIOTIC FLUID VOLUME: Largest pocket 4.4 x 6.2 cm / 8.5 x 4.2 cm GESTATIONAL AGE: 32 weeks 4 days / 32 weeks 4 days US/US OB BPP w non-stress IMPRESSION: 1. Total biophysical profile score: Baby A: 8 / Baby B: 8 Electronically authenticated by: CHAN SMALL Date: 11/06/2024 07:45
--- NOTE | 2024-11-05 17:41 | US_ITS ---
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 BREATHING MOVEMENTS: 2/2 GROSS BODY MOVEMENTS: 2/2 TONE: 2 / 2) QUALITATIVE AMNIOTIC FLUID VOLUME: 2 / 2) PRESENTATION: Cephalic / transverse with head to maternal left HEART RATE: 134 bpm / 125 bpm AMNIOTIC FLUID VOLUME: Largest pocket 4.4 x 6.2 cm / 8.5 x 4.2 cm GESTATIONAL AGE: 32 weeks 4 days / 32 weeks 4 days US/US OB BPP w non-stress IMPRESSION: 1. Total biophysical profile score: Baby A: 8 / Baby B: 8 Electronically authenticated by: CHAN SMALL Date: 11/06/2024 07:45
== END 2024-11-05 19:00 | disposition home or self-care (01) ==
LOC: US 00:44 → FBC 16:53
PROVIDERS: PCP Family Medicine; Visit Provider Obstetrics & Gynecology
DX: O30.042 Twin pregnancy, dichorionic/diamniotic, second trimester (principal); Z3A.32 32 weeks gestation of pregnancy
CPT/HCPCS: 76818

== ENCOUNTER 2024-11-07 13:11 | Outpatient (OUT) | payer OTHER, MEDICAID, SELFPAY ==
[2024-11-07 13:29] LABS: Basophils Percent Auto 0.3 % (0.2-2.0); Eosinophils Absolute Auto 0.1 10^3/uL (0.0-0.7); Eosinophils Percent Auto 0.6 % (0.9-7.0); Hematocrit 38.7 % (36.0-48.0); Hemoglobin 12.9 g/dL (12.0-16.0); Immature Granulocytes Abs Auto 0.05 10^3/uL (0.00-0.03); Immature Granulocytes Pct Auto 0.5 % (0.0-0.5); Lymphocytes Absolute Auto 1.4 10^3/uL (1.2-3.8); Lymphocytes Percent Auto 13.2 % (20.5-60.0); Mean Corpuscular HGB Conc 33.3 g/dL (29.9-35.2); Mean Corpuscular Hemoglobin 28.4 pg (26.7-34.0); Mean Corpuscular Volume 85.2 fL (81.0-99.0); Mean Platelet Volume 10.3 fL (9.5-13.5); Monocytes Absolute Auto 0.6 10^3/uL (0.3-0.8); Monocytes Percent Auto 5.7 % (1.7-12.0); Neutrophils Absolute Auto 8.4 10^3/uL (1.4-6.5); Neutrophils Percent Auto 79.7 % (43.0-75.0); Platelet Count 151 10^3/uL (150-450); Red Blood Count 4.54 10^6/uL (4.20-5.40); Red Cell Distribution Width 13.2 % (11.0-15.0); White Blood Count 10.5 10^3/uL (4.0-11.0)
== END 2024-11-07 13:12 | disposition home or self-care (01) ==
LOC: LAB 13:12
PROVIDERS: PCP Family Medicine; Visit Provider Obstetrics & Gynecology
DX: D50.9 Iron deficiency anemia, unspecified (principal)
CPT/HCPCS: 36415; 85025

== ENCOUNTER 2024-11-08 06:43 | Outpatient (OUT) | payer OTHER, MEDICAID, SELFPAY ==
--- OUTSIDE RECORDS SUMMARY | 2024-11-08 06:47 | XMS_ITS | CCD ---
Author Organization [facility] Care Team Providers Care Radiation / Chemistry Technician Name Role Phone Unavailable Primary Care Provider Unavailsoniya e Christina Pearce Unavailable Ok Mckeon Unavailable Ibis Renteria Unavailable Unavailable Unavailable CARLOS Renteria Primary Care Provider MD Melodie Alcaraz Attending Provider [phone] MD Álvaro Osborn Referring Provider CARLOS Davidson Attending Provider JOHNNY Pearce Emergency Provider Link, Dr. Annalee Torres Attending Unavailab celine Alcaraz, Dr. Sewell Referring Unavailable Myra, Ms. Ibis Winter Primary Care Unavail able Link, Dr. Annalee Torres Admitting Unavailab le Unavailable Primary Care Provider Unavailsoniya e Unavailable Primary Care Provider UnavailCARLOS Salas Primary Care Provider JOHNNY Perez Attending Provider [phone] CHAN MUÑIZ Attending UnavailIBIS Salas Referring Unavailable MYRA, IBIS Primary Care Unavailable IBIS RENTERIA Primary Care Unavailable SPRING UMAÑA Referring Unavailable CHAN MUÑIZ Attending UnavailCARLOS Salas Primary Care Provider DO Carlitos Nguyen Jr Attending Provider [phone] Dr. Annalee Maza Attending Unavailab le Link, [...] Myra Ibis GOODSON Primary Care Provider [phone] Myra, ROOM SERVICE RUNNER-C Ibis Winter Primary Care Provider DO Haris Martino Emergency Provider [phone] DO Nam Barnes Attending Provider JB MANDUJANO Primary Care Physician [phone] Rinkes, Celeste Admitting Unavailable Rinkes, Celeste Attending Unavailable Jocelin FELIX Attending Unavailable Mae, SEAM PRESSER Krista L Attending Unavailable Mae, SEAM PRESSER Krista L Attending Unavailable Unavailable Primary Care Provider Unavailabl e Rinkes, Celeste Attending Unavailable Rinkes, Celeste Admitting Unavailable Rinkes, Celeste Attending Unavailable Rinkes, Celeste Admitting Unavailable Jb Mandujano MD Primary Care Provider [phone] Osei Malik DO Unavailable Flori Sam Unavailable [facility] Un[facility] Admitting Unavailable Ibis Renteria Primary Care Unavailable Shirley, Celeste Attending Unavailable RinCeleste garcia Admitting Unavailable SANTIAGO, AURORA Attending Unavailable SANTIAGO, AURORA Referring Unavailable SANTIAGO, AURORA Referring Unavailable SANTIAGO, AURORA Referring Unavailable SANTIAGO, AURORA Referring Unavailable NOBLE, JYOTI Attending Unavailable NOBLE, JYOTI Attending Unavailable JOIE SEAMAN Attending Unavailable NOBLE, JYOTI Attending Unavailable Osei Malik DO Attending Provider HELENA, OSEI R Referring Unavailable [place] Primary Care Unavailable MOUSSA, HIND NADIM Attending Unavailable HELENA, OSEI R Referring Unavailable [place] Primary Care Unavailable HELENA, OSEI R Referring Unavailable [place] Primary Care Unavailable HELENA, OSEI R Referring Unavailable [place] Primary Care Unavailable HELENA, OSEI Attending Unavailable HELENA, OSEI Attending Unavailable SHIRLEY, CELESTE E Attending Unavailable SHIRLEY, CELESTE E Attending Unavailable JB MANDUJANO Attending Unavailable JB MANDUJANO Attending Unavailable HEMCAMILLA MCKEON Attending Unavailable HELENA, OSEI Attending Unavailable FLORI GIL Attending Unavailable FOLRI GIL Attending Unavailable HEMCAMILLA MCKEON Attending Unavailable HELENA, OSEI Attending Unavailable HELENA, OSEI Attending Unavailable HELENA, OSEI Attending Unavailable Helena, Osei Attending Unavailable Helena, Osei Admitting Unavailable Allergies Allergy Classification Reported Allergen(s) Allergy Type Date of Onset Reaction(s) Facility Acetaminophen / oxyCODONE (1 source) Acetaminophen / oxyCODONE; Translations: [acetaminophen-o xycodone] Drug Allergy [facility] Comment on above: no narcotics, GI ups et Chlorhexidine (1 source) Chlorhexidine; Translations: [chlorhexidine topical] Drug Allergy Itching [facility] Corticosteroids (1 source) predniSONE; Translations: [prednisone] Drug Allergy [facility] (15 sources) Morphinan opioid; Translations: [OPIOIDS - MORPHINE ANALOGUES] Propensity to adverse reactions to drug 01-26-20 Other: See Comments [facility] (20 sources) predniSONE; Translations: [predniSONE] Drug Allergy 01-26-20 Other: See Comments, Dizziness [facility] (20 sources) prednisoLONE; Translations: [prednisolone] Drug Allergy 01-11-20 22 GI Disturbance [employer] [facility] [employer] Other (15 sources) Fludrocortisone; Translations: [Florinef TABS] Drug Allergy Nausea [facility] [address] DO Work Phone: (20 sources) Midodrine; Translations: [midodrine] Drug Allergy 08-13-20 23 GI bleeding [facility] (3 sources) Acetaminophen / oxyCODONE; Translations: [Percocet] Drug Allergy [facility] Repository (4 sources) Chlorhexidine; Translations: [chlorhexidine topical] Drug Allergy Itching [facility] Repository (7 sources) Acetaminophen / oxyCODONE; Translations: [acetaminophen-o xycodone] Drug Allergy 07-07-20 24 GI Disturbance [facility] Comment on above: no narcotics, GI ups et (20 sources) Acetaminophen / oxyCODONE; Translations: [OXYCODONE-ACETA MINOPHEN] Drug Allergy 02-26-20 24 [facility] (20 sources) Chlorhexidine; Translations: [CHLORHEXIDINE] Drug Allergy 02-21-20 23 Itching [facility] Healthcare Work Phone: (20 sources) Fludrocortisone; Translations: [FLUDROCORTISONE ] Drug Allergy 07-26-20 22 Nausea [facility] (20 sources) Prednisone Allergy to substance 02-18-20 23 Dizziness [facility] (1 source) predniSONE Drug Allergy 06-08-20 23 [facility] Repository Medications Current Medications Medication Drug Class(es) Dates Sig (Normalized) Sig (Original) [id number] 200 actuat albuterol 0.09 mg/actuat metered dose inhaler (20 sources) beta2-Adrenergic Agonist Start: 08-27-2024 take 2 puff(s) by inhalation every four hours for wheezing albuterol HFA 90 mcg/act inhaler Indications: Mild intermittent asthma with acute exacerbation ([facility]) Inhale 2 puffs every 4 (four) hours [...] this medication. 14 tablet 08/07/2024 08/14/2024 Active [place] (No Known Home Meds) (1 source) Start: [place] (No Known Home Meds) Active June 08, [...] Start: 08-01-2022 take 1 capsule by mo [facility] three times daily Droxidopa 100 MG Oral [...] 07-10-2022 take 0.5 tablet by [facility] three times daily Midodrine HCl - 10 [...] tolerance complicating ; childbirth; or the puerperium (20 sources) Gestational diabetes mellitus; Translations: [Gestational diabetes [...] of ] 09-18-2024 Episodic Residual codes; unclassified (20 sources) Gestation period, 29 weeks; Translations: [29 [...] Test Name Value Interpretation Reference Range Facility ALL CBC WITH AUTO DIFFon BASOPHILS ABSOLUTE AUTO 0 [facility] Basophils/100 WBC (Bld) 0.3 % 0.2 - 2.0 % [facility] Eosinophils/100 WBC (Bld) 0.6 % Low 0.9 - 7.0 % [facility] Erythrocyte distribution width (RBC) [Ratio] 13.2 % 11.0 - 15.0 % [facility] Hematocrit (Bld) [Volume fraction] 38.7 % 36.0 - 48.0 % [facility] Hemoglobin (Bld) [Mass/Vol] 12.9 g/dL 12.0 - 16.0 g/dL [facility] IMMATURE GRANULOCYTES ABS AUTO 0.05 High [facility] Immature granulocytes/100 WBC (Bld) 0.5 % 0.0 - 0.5 % [facility] Interpretation and review of laboratory results Abnormal [facility] LYMPHOCYTES ABSOLUTE AUTO 1.4 [facility] Lymphocytes/100 WBC (Bld) 13.2 % Low 20.5 - 60.0 % [facility] MCH (RBC) [Entitic mass] 28.4 pg 26.7 - 34.0 pg [facility] MCHC (RBC) [Mass/Vol] 33.3 g/dL 29.9 - 35.2 g/dL [facility] MCV (RBC) [Entitic vol] 85.2 fL 81.0 - 99.0 fL [facility] MONOCYTES ABSOLUTE AUTO 0.6 [facility] Monocytes/100 WBC (Bld) 5.7 % 1.7 - 12.0 % [facility] NEUTROPHILS ABSOLUTE AUTO 8.4 High [facility] Neutrophils/100 WBC (Bld) 79.7 % High 43.0 - 75.0 % [facility] Platelet mean volume (Bld) [Entitic vol] 10.3 fL 9.5 - 13.5 fL [facility] EO # 0.1 [facility] PLT 151 [facility] RBC 4.54 [facility] WBC 10.5 [facility] No Panel InformationOrdered By: Radiologist Radiology on 11-06-2024 [facility] Work Phone: No Panel Informationon 11-06 Radiology Study observation (narrative) [facility] US OB BPP W NON-STRESS on 11-06-2024 [place] [address] Ultrasound Report Signed Patient: MADYSON MAI MR#: [id number] : 2000 Acct:[id number] Age/Sex: 23 / F ADM Date: 11/05/24 Loc: US Attending Dr: Osei Malik D.O. Ordering Physician: Osei Malik D.O. Date of Service: 11/05/24 Procedure(s): US OB BPP w non-stress Accession Number(s): [id number] cc: JB MANDUJANO ; Osei Malik D.O. 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 BREATHING MOVEMENTS: 2/2 GROSS BODY MOVEMENTS: 2/2 TONE: 2 / 2) QUALITATIVE AMNIOTIC FLUID VOLUME: 2 / 2) PRESENTATION: Cephalic / transverse with head to maternal left HEART RATE: 134 bpm / 125 bpm AMNIOTIC FLUID VOLUME: Largest pocket 4.4 x 6.2 cm / 8.5 x 4.2 cm GESTATIONAL AGE: 32 weeks 4 days / 32 weeks 4 days US/US OB BPP w non-stress IMPRESSION: 1. Total biophysical profile score: Baby A: 8 / Baby B: 8 Electronically authenticated by: CHAN SMALL Date: 11/06/2024 07:45 Dictated By: Chan Small M.D. Signed By: 11/06/24 0748 DD/ 0745 TD/TT: Tennis Desk Team Member: [facility] Radiology, Radiologyelitza cervantes MD - 11/06/2024 [place] [address] Ultrasound Report Signed Patient: MADYSON MAI MR#: [id number] : 2000 Acct:[id number] Age/Sex: 23 / F ADM Date: 11/05/24 Loc: US Attending Dr: Osei Malik D.O. Ordering Physician: Osei Malik D.O. Date of Service: 11/05/24 Procedure(s): US OB BPP w non-stress Accession Number(s): [id number] cc: JB MANDJUANO ; Osei Malik D.O. 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 BREATHING MOVEMENTS: 2/2 GROSS BODY MOVEMENTS: 2/2 TONE: 2 / 2) QUALITATIVE AMNIOTIC FLUID VOLUME: 2 / 2) PRESENTATION: Cephalic / transverse with head to maternal left HEART RATE: 134 bpm / 125 bpm AMNIOTIC FLUID VOLUME: Largest pocket 4.4 x 6.2 cm / 8.5 x 4.2 cm GESTATIONAL AGE: 32 weeks 4 days / 32 weeks 4 days US/US OB BPP w non-stress IMPRESSION: 1. Total biophysical profile score: Baby A: 8 / Baby B: 8 Electronically authenticated by: CHAN SMALL Date: 11/06/2024 07:45 Dictated By: Chan Small M.D. Signed By: 11/06/2448 DD/ 4 TD/TT: Tennis Desk Team Member: [place] [address] Ultrasound Report Signed Patient: MADYSON MAI MR#: [id number] : 2000 Acct:[id number] Age/Sex: 23 / F ADM Date: 11/05/24 Loc: US Attending Dr: Oesi Malik D.O. Ordering Physician: Osei Malik D.O. Date of Service: 11/05/24 Procedure(s): US OB BPP w non-stress Accession Number(s): [id number] cc: JB MANDUJANO ; Osei Malik D.O. 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 BREATHING MOVEMENTS: 2/2 GROSS BODY MOVEMENTS: 2/2 TONE: 2 / 2) QUALITATIVE AMNIOTIC FLUID VOLUME: 2 / 2) PRESENTATION: Cephalic / transverse with head to maternal left HEART RATE: 134 bpm / 125 bpm AMNIOTIC FLUID VOLUME: Largest pocket 4.4 x 6.2 cm / 8.5 x 4.2 cm GESTATIONAL AGE: 32 weeks 4 days / 32 weeks 4 days US/US OB BPP w non-stress IMPRESSION: 1. Total biophysical profile score: Baby A: 8 / Baby B: 8 Electronically authenticated by: CHAN SMALL Date: 11/06/2024 07:45 Dictated By: Chan Small M.D. Signed By: 11/06/24 0748 DD/ 0745 TD/TT: Tennis Desk Team Member: [facility] Radiology, Radiologi MD billy - 11/06/2024 [place] [address] Ultrasound Report Signed Patient: MADYSON MAI MR#: [id number] : 2000 Acct:[id number] Age/Sex: 23 / F ADM Date: 11/05/24 Loc: US Attending Dr: Osei Malik D.O. Ordering Physician: Osei Malik D.O. Date of Service: 11/05/24 Procedure(s): US OB BPP w non-stress Accession Number(s): [id number] cc: JB MANDUJANO ; Osei Malik D.O. 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 BREATHING MOVEMENTS: 2/2 GROSS BODY MOVEMENTS: 2/2 TONE: 2 / 2) QUALITATIVE AMNIOTIC FLUID VOLUME: 2 / 2) PRESENTATION: Cephalic / transverse with head to maternal left HEART RATE: 134 bpm / 125 bpm AMNIOTIC FLUID VOLUME: Largest pocket 4.4 x 6.2 cm / 8.5 x 4.2 cm GESTATIONAL AGE: 32 weeks 4 days / 32 weeks 4 days US/US OB BPP w non-stress IMPRESSION: 1. Total biophysical profile score: Baby A: 8 / Baby B: 8 Electronically authenticated by: CHAN SMALL Date: 11/06/2024 07:45 Dictated By: Chan Small M.D. Signed By: 11/06/24 0748 DD/ TD/TT: Tennis Desk Team Member: [employer] No Panel InformationOrdered By: Radiologist Radiology on 10-30-2024 [facility] [employer] Work Phone: No Panel Informationon 10-30 Radiology Study observation (narrative) [facility] US OB BPP W NON-STRESS on 10-30-2024 [place] [address] Ultrasound Report Signed Patient: MADYSON MAI MR#: [id number] : 2000 Acct:[id number] Age/Sex: 23 / F ADM Date: 10/29/24 Loc: US Attending Dr: Osei Malik D.O. Ordering Physician: Osei Malik D.O. Date of Service: 10/29/24 Procedure(s): US OB BPP w non-stress Accession Number(s): [id number] cc: JB MANDUJANO ; Osei Malik D.O. [place] [id number] Patient Name: MADYSON MAI MRN: [id number] date: 2000 Sex: F Assigned Patient Location: [facility] Current Patient Location: Accession/Order Number: [id number] Exam Date: 10/29/2024 17:40 Report Date: 10/30/2024 [...] Signed By: 10/30/24 0733 DD/ 9 TD/TT: Tennis Desk Team Member: [facility] Radiology, Radiologi MD billy - 10/30/2024 [place] [address] Ultrasound Report Signed Patient: MADYSON MAI MR#: [id number] : 2000 Acct:[id number] Age/Sex: 23 / F ADM Date: 10/29/24 Loc: US Attending Dr: Osei Malik D.O. Ordering Physician: Osei Malik D.O. Date of Service: 10/29/24 Procedure(s): US OB BPP w non-stress Accession Number(s): [id number] cc: JB MANDUJANO ; Osei Malik D.O. The [place] [id number] Patient Name: MADYSON MAI MRN: [facility]:[id number] date: 2000 Sex: F Assigned Patient Location: [facility] Current Patient Location: Accession/Order Number: [id number] Exam Date: 10/29/2024 17:40 Report Date: 10/30/2024 [...] M.D. Signed By: 10/30/2433 DD/ 9 TD/TT: Tennis Desk Team Member: [place] [address] Ultrasound Report Signed Patient: MADYSON MAI MR#: [id number] : 2000 Acct:[id number] Age/Sex: 23 / F ADM Date: 10/29/24 Loc: US Attending Dr: Osei Malik D.O. Ordering Physician: Osei Malik D.O. Date of Service: 10/29/24 Procedure(s): US OB BPP w non-stress Accession Number(s): [id number] cc: JB MANDUJANO ; Osei Malik D.O. [place] [address] Patient Name: MADYSON MAI MRN: [id number] date: 2000 Sex: F Assigned Patient Location: [facility] Current Patient Location: Accession/Order Number: [id number] Exam Date: 10/29/2024 17:40 Report Date: 10/30/2024 [...] Dictated By: Tim Contreras M.D. Signed By: 10/30/24732 DD/ 9 TD/TT: Tennis Desk Team Member: [facility] Radiology, Radiologi MD billy - 10/30/2024 [place] [address] Ultrasound Report Signed Patient: MADYSON MAI MR#: [id number] : 2000 Acct:[id number] Age/Sex: 23 / F ADM Date: 10/29/24 Loc: US Attending Dr: Osei Malik D.O. Ordering Physician: sOei Malik D.O. Date of Service: 10/29/24 Procedure(s): US OB BPP w non-stress Accession Number(s): [id number] cc: JB MANDUJANO ; Osei Malik D.O. The [place] [id number] Patient Name: MADYSON MAI MRN: [facility]:[id number] date: 2000 Sex: F Assigned Patient Location: [facility] Current Patient Location: Accession/Order Number: [id number] Exam Date: 10/29/2024 17:40 Report Date: 10/30/2024 [...] M.D. Signed By: 10/30/2433 DD/ 9 TD/TT: Tennis Desk Team Member: [facility] Urinalysis macro (dipstick) panel (U)on 10-29-2024 Bilirubin, UA Negative Negative - 4(70) +++ mg/dL [facility] Blood, UA Negative Negative - 50 Vasu/mcL [facility] Clarity, UA Clear [facility] Color, UA Yellow [facility] Glucose, UA Positive Negative - 1999(110) ++++ mg/dL [facility] Comment on above: 100 MG Interpretation and review of laboratory results Abnormal [facility] Ketones, UA Negative Negative - 160(16) ++++ mg/dL [facility] Leukocytes, UA Positive Negative - 500+++ Conrad/mcL [facility] Comment on above: SMALL Nitrite, UA Negative Negative - Positive [facility] pH, UA 7 5 - 9 [facility] Protein, UA Negative Negative - 2000(20) ++++ mg/dL [facility] Spec Grav, UA 1.01 1 - 1.03 [facility] Urobilinogen, UA 0.2 0.2 - 12 mg/dL [facility] CTA Chest vessels WO and W c ontrast Luiz 10-27-[address] [address] [address] Scan Report Signed Patient: MADYSON MAI MR#: [id number] : 2000 Acct:[id number] Age/Sex: 23 / F ADM Date: Loc: [facility] 251-[address]: Osei Malik D.O. Ordering Physician: Osei Malik D.O. Date of Service: 10/27/24 Procedure(s): CT angio chest Accession Number(s): [id number] cc: JB MANDUJANO [place] [address] Patient Name: MADYSON MAI MRN: [id number] date: 2000 Sex: F Assigned Patient Location: [facility] Current Patient Location: [facility] Accession/Order Number: [id number] Exam Date: 10/27/2024 15:20 Report Date: 10/27/2024 [...] Signed By: 10/27/24 1556 DD/ 1554 TD/TT: Tennis Desk Team Member: [facility] Radiology, Ru cervantes MD - 10/27/2024 [place] [address] CT Scan Report Signed Patient: MADYSON MAI MR#: [id number] : 2000 Acct:[id number] Age/Sex: 23 / F ADM Date: Loc: [facility] 251-[address]: Osei Malik D.O. Ordering Physician: Osei Malik D.O. Date of Service: 10/27/24 Procedure(s): CT angio chest Accession Number(s): [id number] cc: JB MANDUJANO [place] [address] Patient Name: MADYSON MAI MRN: [facility]:[id number] date: 2000 Sex: F Assigned Patient Location: [facility] Current Patient Location: [facility] Accession/Order Number: [id number] Exam Date: 10/27/2024 15:20 Report Date: 10/27/2024 [...] account for patient's symptoms. Electronically authenticated by: CHNA SMALL Date: 10/27/2024 15:54 Dictated By: Chan Small M.D. Signed By: 10/27/241555 DD/ 53 TD/TT: Tennis Desk Team Member: [facility] Radiology Study observation (narrative) [facility] CTA Chest vessels WO and W c ontrast IVOrdered By: Radiologist Radiology on 10-27-2024 [facility] Work Phone: ECG 12-LEADon 10-27-2024 [place] [address] Electrocardiograph Report Signed Patient: MADYSON MAI MR#: [id number] : 2000 Acct:[id number] Age/Sex: 23 / F ADM Date: Loc: [place] [address]: Osei Malik D.O. Ordering Physician: Osei Malik D.O. Date of Service: 10/27/24 Procedure(s): ECG 12 lead Accession Number(s): [id number] cc: 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 Signed By: 10/27/242048 DD/ 54 TD/TT: Tennis Desk Team Member: [facility] RadiologyRu MD - 10/27/2024 [place] [address] Electrocardiograph Report Signed Patient: MADYSON MAI MR#: [id number] : 2000 Acct:[id number] Age/Sex: 23 / F ADM Date: Loc: [facility] [address]: Osei Malik D.O. Ordering Physician: Osei Malik D.O. 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 Signed By: 10/27/242048 DD/ 1555 TD/TT: Tennis Desk Team Member: [facility] Radiology Study observation (narrative) [facility] ECG 12-LEADOrdered By: Radio logist Radiology on 10-27-2024 [facility] Work Phone: [facility] UA (CLEAN/CATCH) CORE WORKER/YOUSIF RO IF IND.on 10-27-2024 BILIRUBIN URINE Negative NEGATIVE [facility] Healthcare BLOOD URINE Negative NEGATIVE [facility] Clarity (U) CLEAR CLEAR [facility] Healthcare Color (U) LT. YELLOW YELLOW [facility] [facility] GLU[facility]SE URINE UA 500 mg/dL Abnormal NEGATIVE [facility] Interpretation and review of laboratory results Abnormal [facility] Ketones Ql (U) Negative NEGATIVE mg/dL [facility] Leukocyte esterase Test strip Ql (U) SMALL Abnormal NEGATIVE [facility] NITRITE URINE Negative NEGATIVE [facility] pH (U) 6.5 [pH] 5.0 - [facility] Negative NEG/TRACE mg/dL [facility] SPECIFIC GRAVITY URINE 1.020 1.005 - 1.025 [facility] URINE MICROSCOPIC INDICATED YES [facility] UROBILINOGEN URINE 1.0 EU/dL 0.2 - 1.0 EU/dL [facility] No Panel InformationOrdered By: Radiologist Radiology on 10-23-2024 [facility] Work Phone: No Panel Informationon 10-23 Radiology Study observation (narrative) [facility] US OB BPP W NON-STRESS on 10-23-2024 [place] [address] Ultrasound Report Signed Patient: MADYSON MAI MR#: [id number] : 2000 Acct:[id number] Age/Sex: 23 / F ADM Date: 10/22/24 Loc: US Attending Dr: Osei Malik D.O. Ordering Physician: Osei Malik D.O. Date of Service: 10/22/24 Procedure(s): US OB BPP w non-stress Accession Number(s): [id number] cc: JB MANDUJANO ; Osei Malik D.O. [place] [address] Patient Name: MADYSON MAI MRN: [id number] date: 2000 Sex: F Assigned Patient Location: [facility] Current Patient Location: Accession/Order Number: [id number] Exam Date: 10/22/2024 17:05 Report Date: 10/23/2024 [...] Signed By: 10/23/24 0745 DD/ 0742 TD/TT: Tennis Desk Team Member: [facility] Radiology, Radiologi MD billy - 10/23/2024 [place] [address] Ultrasound Report Signed Patient: MADYSON MAI MR#: [id number] : 2000 Acct:[id number] Age/Sex: 23 / F ADM Date: 10/22/24 Loc: US Attending Dr: Osei Malik D.O. Ordering Physician: Osei Malik D.O. Date of Service: 10/22/24 Procedure(s): US OB BPP w non-stress Accession Number(s): [id number] cc: JB MANDUJANO ; Osei Malik D.O. The [address] [address] Patient Name: MADYSON MAI MRN: [facility]:[id number] date: 2000 Sex: F Assigned Patient Location: [facility] Current Patient Location: Accession/Order Number: [id number] Exam Date: 10/22/2024 17:05 Report Date: 10/23/2024 [...] Signed By: 10/23/24 0745 DD/ 0742 TD/TT: Tennis Desk Team Member: [facility] [place] [address] Ultrasound Report Signed Patient: MADYSON MAI MR#: [id number] : 2000 Acct:[id number] Age/Sex: 23 / F ADM Date: 10/22/24 Loc: US Attending Dr: Osei Malik D.O. Ordering Physician: Osei Malik D.O. Date of Service: 10/22/24 Procedure(s): US OB BPP w non-stress Accession Number(s): [id number] cc: JB MANDUJANO ; Osei Malik D.O. [place] [address] Patient Name: MADYSON MAI MRN: [id number] date: 2000 Sex: F Assigned Patient Location: [facility] Current Patient Location: Accession/Order Number: [id number] Exam Date: 10/22/2024 17:05 Report Date: 10/23/2024 07:42 At the request of: OSIE MALIK Procedure: US OB BPP w non-stress [...] Signed By: 10/23/24 0745 DD/ 0742 TD/TT: Tennis Desk Team Member: [facility] Radiology, Radiologi MD billy - 10/23/2024 [place] [address] Ultrasound Report Signed Patient: MADYSON MAI MR#: [id number] : 2000 Acct:[id number] Age/Sex: 23 / F ADM Date: 10/22/24 Loc: US Attending Dr: Osei Malik D.O. Ordering Physician: Osei Malik D.O. Date of Service: 10/22/24 Procedure(s): US OB BPP w non-stress Accession Number(s): [id number] cc: JB MANDUJANO ; Osei Malik D.O. The [place] [id number] Patient Name: MADYSON MAI MRN: [facility]:[id number] date: 2000 Sex: F Assigned Patient Location: [facility] Current Patient Location: Accession/Order Number: [id number] Exam Date: 10/22/2024 17:05 Report Date: 10/23/2024 [...] M.D. Signed By: 10/23/24 0745 DD/ TD/TT: Tennis Desk Team Member: [facility] Urinalysis macro (dipstick) panel (U)on 10-15-2024 Bilirubin, UA Negative Negative - 4(70) +++ mg/dL [facility] Blood, UA Negative Negative - 50 Vasu/mcL [facility] Clarity, UA Clear [facility] Color, UA Yellow [facility] Glucose, UA Positive Negative - 1999(110) ++++ mg/dL [facility] Comment on above: 500 Interpretation and review of laboratory results Abnormal [facility] Ketones, UA Negative Negative - 160(16) ++++ mg/dL [facility] Leukocytes, UA Positive Negative - 500+++ Conrad/mcL [facility] Comment on above: small Nitrite, UA Negative Negative - Positive [facility] pH, UA 6 5 - 9 [facility] Protein, UA Trace Negative - 1999(20) ++++ mg/dL [facility] Spec Grav, UA 1.02 1 - 1.03 [facility] Urobilinogen, UA 0.2 0.2 - 12 mg/dL [facility] Urinalysis macro (dipstick) panel (U)on 10-02-2024 Bilirubin, UA Negative Negative - 4(70) +++ mg/dL [facility] Blood, UA Negative Negative - 50 Vasu/mcL [facility] Clarity, UA Clear [facility] Color, UA Yellow [facility] Glucose, UA Negative Negative - 2000(110) ++++ mg/dL [facility] Interpretation and review of laboratory results Abnormal [facility] Ketones, UA Positive Negative - 160(16) ++++ mg/dL [facility] Comment on above: 40 Leukocytes, UA Trace Negative - 500+++ Conrad/mcL [facility] Nitrite, UA Negative Negative - Positive [facility] pH, UA 6 5 - 9 [facility] Protein, UA Positive Negative - 1999(20) ++++ mg/dL [facility] Comment on above: 30 Spec Grav, UA 1.03 1 - 1.03 [facility] Urobilinogen, UA 0.2 0.2 - 12 mg/dL [facility] UA (CLEAN/CATCH) CORE WORKER/YOUSIF RO IF IND.on 09-25-2024 BILIRUBIN URINE Negative NEGATIVE [facility] BLOOD URINE Negative NEGATIVE [facility] Clarity (U) CLEAR CLEAR [facility] Color (U) LT. YELLOW YELLOW [facility] GLUCOSE URINE UA 250 mg/dL Abnormal NEGATIVE [facility] Interpretation and review of laboratory results Abnormal [facility] Ketones Ql (U) Negative NEGATIVE mg/dL [facility] Leukocyte esterase Test strip Ql (U) SMALL Abnormal NEGATIVE [facility] NITRITE URINE Negative NEGATIVE [facility] pH (U) 6.0 [pH] 5.0 - 9.0 [facility] PROTEIN URINE Negative NEG/TRACE mg/dL [facility] SPECIFIC GRAVITY URINE 1.020 1.005 - 1.025 [facility] URINE MICROSCOPIC INDICATED YES [facility] UROBILINOGEN URINE 0.2 EU/dL 0.2 - 1.0 EU/dL [facility] Urine Cultureon 09-25-2024 Bacteria identified Cx Nom (U) <9,000 colonies/ml mixed bacterial skin contaminants 2 Days PERFORMED BY: [place] [address] PATHOLOGIST WATCH HAIRSPRING ASSEMBLER KARMA BUCK M.D. Normal [facility] Comment on above: Performed By: #### C UU #### [address] Urinalysis macro (dipstick) panel (U)on 09-18-2024 Bilirubin, UA Negative Negative - 4(70) +++ mg/dL [facility] Blood, UA Negative Negative - 50 Vasu/mcL [facility] Clarity, UA Clear [facility] Color, UA Yellow [facility] Glucose, UA Positive Negative - 1999(110) ++++ mg/dL [facility] Comment on above: 100 Interpretation and review of laboratory results Abnormal [facility] Ketones, UA Negative Negative - 160(16) ++++ mg/dL [facility] Leukocytes, UA Positive Negative - 500+++ Conrad/mcL [facility] Comment on above: small Nitrite, UA Negative Negative - Positive [facility] pH, UA 7 5 - 9 [facility] Protein, UA Trace Negative - 2000(20) ++++ mg/dL [facility] Spec Grav, UA 1.02 1 - 1.03 [facility] Urobilinogen, UA 0.2 0.2 - 12 mg/dL [facility] Urinalysis macro (dipstick) panel (U)on 09-03-2024 Bilirubin, UA Negative Negative - 4(70) +++ mg/dL [facility] Blood, UA Negative Negative - 50 Vasu/mcL [facility] Clarity, UA Clear [facility] Color, UA Yellow [facility] Glucose, UA Many Negative - 2000(110) ++++ mg/dL [facility] Interpretation and review of laboratory results Abnormal [facility] Ketones, UA Positive Negative - 160(16) ++++ mg/dL [facility] Leukocytes, UA Positive Negative - 500+++ Conrad/mcL [facility] Nitrite, UA Negative Negative - Positive [facility] pH, UA 6.5 5 - 9 [facility] Protein, UA Moderate Negative - 2000(20) ++++ mg/dL [facility] Spec Grav, UA 1.025 1 - 1.03 [facility] Urobilinogen, UA 0.2 0.2 - 12 mg/dL [facility] GLUCOSE TOLERANCE 3 HOURon 1 11-02-2023 GLUCOSE TOLERANCE 3 HOUR High mg/dL [facility] Comment on above: GLU FAST 86 (<95) Co l: 09/01/24 0818 GLU 1HR 162 (<180) Col: 09/01/24 0919 GLU 2HR 156H (<155) Col: 09/01/24 1019 GLU 3HR 110 (<140) Col: 09/01/24 1119 Interpretation and review of laboratory results Abnormal [facility] ALL CBC WITH AUTO DIFFon BASOPHILS ABSOLUTE AUTO 0 [facility] Basophils/100 WBC (Bld) 0.2 % 0.2 - 2.0 % [facility] Eosinophils/100 WBC (Bld) 0.7 % Low 0.9 - 7.0 % [facility] Erythrocyte distribution width (RBC) [Ratio] 13.6 % 11.0 - 15.0 % [facility] Hematocrit (Bld) [Volume fraction] 32.9 % Low 36.0 - 48.0 % [facility] Hemoglobin (Bld) [Mass/Vol] 11.1 g/dL Low 12.0 - 16.0 g/dL [facility] IMMATURE GRANULOCYTES ABS AUTO 0.11 High [facility] Immature granulocytes/100 WBC (Bld) 1.1 % High 0.0 - 0.5 % [facility] Interpretation and review of laboratory results Abnormal [facility] LYMPHOCYTES ABSOLUTE AUTO 1.3 [facility] Lymphocytes/100 WBC (Bld) 13 % Low 20.5 - 60.0 % [facility] MCH (RBC) [Entitic mass] 29.6 pg 26.7 - 34.0 pg [facility] MCHC (RBC) [Mass/Vol] 33.7 g/dL 29.9 - 35.2 g/dL [facility] MCV (RBC) [Entitic vol] 87.7 fL 81.0 - 99.0 fL [facility] MONOCYTES ABSOLUTE AUTO 0.6 [facility] Monocytes/100 WBC (Bld) 5.5 % 1.7 - 12.0 % [facility] NEUTROPHILS ABSOLUTE AUTO 7.9 High [facility] Neutrophils/100 WBC (Bld) 79.5 % High 43.0 - 75.0 % [facility] Platelet mean volume (Bld) [Entitic vol] 10.3 fL 9.5 - 13.5 fL [facility] PLT 178 [facility] RBC 3.75 Low [facility] WBC 9.9 [facility] IGP,APTIMA HPV,AGE GDLNon AGE GDLN ACOG TESTING Note . [facility] Comment on above: TESTS RESULT FLAG UN ITS REF RANGE LAB Clinician Provided Cytology Information Source.............Cervix No. of containers..01 ThinPrep Vial Age Sahra LUIS Maureen... FLAG LEGEND: L-Low Normal,H-High Normal,LL-Alert Low,HH-Alert High <-Panic Low,>-Panic High,A-Abnormal,AA-Critical Abnormal Performed at: 01 =G [facility] [address] [place] [address] Toya Wilson MD, IGP, RFX APTIMA HPV ASCU Note . [facility] Comment on above: TESTS RESULT FLAG U NITS REF RANGE LAB DIAGNOSIS: 02 NEGATIVE FOR INTRAEPITHELIAL LESION OR MALIGNANCY. Specimen adequacy: 02 Satisfactory for evaluation. No endocervical component is identified. Performed by: 02 Imelda Miranda Flooring Mechanic ([facility]) . 02 Note: Note 02 The [...] <-Panic Low,>-Panic High,A-Abnormal,AA-Critical Abnormal Performed at: [address] [address] Toya Wilson MD, Performed at: =[address] [id number] Veterinary Laboratory Diagnostician: Toya Wilson MD, Phone: [phone] Performed at: [address] [id number] Veterinary Laboratory Diagnostician: Toya Wilson MD, Phone: [phone] SPATULA-ALONE CERVIX [facility] AFP, SERUM, OPEN SPINA BIFID Aon 08-13-2024 AFP MOM 2.24 . [facility] AFP VALUE 103.1 ng/mL . [facility] COMMENT: Comment . [facility] Comment on above: Joyce Reina , Ph.D., [facility] Director References: Available Upon Request. Multiples Of Median Cutoffs For AFP Elevations Harrington 2.5 Black 2.8 IDD 2.0 Twins 4.5 Abbreviation Definitions IDD - Insulin Dep Diabetes OSBR - Open Spina Bifida Risk For further inquiries contact [facility] at [phone]. This test was developed and its performance characteristics determined by [facility]. It has not been cleared or approved by the Food and Drug Administration. Performed at: [facility] [address] [place], [place] [id number] Veterinary Laboratory Diagnostician: Angel Regan [facility], Phone: [phone] GEST. AGE ON COLLECTION DATE 20.3 . weeks [facility] GESTAT. AGE BASED ON LMP . [facility] Comment on above: Recalculations are n ot recommended when gestational dating by LMP and ultrasound are within 10 days. INSULIN DEP DIABETES No . [facility] INTERPRETATION Comment . [facility] Comment on above: Interpretation: [...] Customer Services to discuss available options. The [employer] recommends amniocentesis be offered to women age 35 and older. [age] [facility] MULTIPLE GESTATION Twins . [facility] OSBR RISK 1 IN 1081 . [facility] RACE . [facility] RESULTS Report . [facility] TEST RESULTS: Negative . [facility] WEIGHT 219 . 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 3-vessel view. 5-nkywpb-vzydugd view. Interventricular septum. Diaphragm. Abdomen Right renal [...] Nuchal fold. F (more content not included)... [facility] Radiology Study observation (narrative) [facility] US for pregnancyOrdered By: Radiologist Radiology on 08-13-2024 [facility] Work Phone: RECURRENT VAGINITIS (HTRX)on 08-07-2024 ATOPOBIUM VAGINAE 29.356 Abnormal [facility] ATOPOBIUM VAGINAE Detected Abnormal [facility] BVAB 2,3 (BACTERIAL VAGINOSIS ASSOCIATED BACTERIA 2, 3); MOBILUNCUS SPP 0 [facility] BVAB 2,3 (BACTERIAL VAGINOSIS ASSOCIATED BACTERIA 2, 3); MOBILUNCUS SPP Not detected [facility] SANTHOSH ALBICANS, PARAPSILOSIS, TROPICALIS 0 [facility] SANTHOSH ALBICANS, PARAPSILOSIS, TROPICALIS Not detected [facility] SANTHOSH GLABRATA 0 [facility] SANTHOSH GLABRATA Not detected [facility] SANTHOSH KRUSEI 0 [facility] SANTHOSH KRUSEI Not detected [facility] CHLAMYDIA TRACHOMATIS 0 [facility] CHLAMYDIA TRACHOMATIS Not detected N [facility] GARDNERELLA VAGINALIS 0 [facility] GARDNERELLA VAGINALIS Not detected N [facility] Interpretation and review of laboratory results Abnormal [facility] MEGASPHAERA (TYPES 1, 2) 0 [facility] MEGASPHAERA (TYPES 1, 2) Not detected [facility] MYCOPLASMA GENITALIUM 0 [facility] MYCOPLASMA GENITALIUM Not detected N [facility] NEISSERIA GONORRHOEAE 0 [facility] NEISSERIA GONORRHOEAE Not detected N [facility] TRICHOMONAS VAGINALIS 0 [facility] TRICHOMONAS VAGINALIS Not detected N [facility] Urinalysis macro (dipstick) panel (U)on 08-05-2024 Bilirubin, UA Negative Negative - 4(70) +++ mg/dL [facility] Blood, UA Negative Negative - 50 Vasu/mcL [facility] Clarity, UA Clear [facility] Color, UA Yellow [facility] Glucose, UA Negative Negative - 1999(110) ++++ mg/dL [facility] Interpretation and review of laboratory results Normal [facility] Ketones, UA Negative Negative - 160(16) ++++ mg/dL [facility] Leukocytes, UA Negative Negative - 500+++ Conrad/mcL [facility] Nitrite, UA Negative Negative - Positive [facility] pH, UA 5.5 5 - 9 [facility] Protein, UA Negative Negative - 1999(20) ++++ mg/dL [facility] Spec Grav, UA 1.02 1 - 1.03 [facility] Urobilinogen, UA 1.0 0.2 - 12 mg/dL [facility] Urinalysis macro (dipstick) panel (U)on 07-03-2024 Bilirubin, UA Negative Negative - 4(70) +++ mg/dL [facility] Blood, UA Negative Negative - 50 Vasu/mcL [facility] Clarity, UA Clear [facility] Color, UA Yellow [facility] Glucose, UA Positive Negative - 1999(110) ++++ mg/dL [facility] Comment on above: 500 Interpretation and review of laboratory results Abnormal [facility] Ketones, UA Negative Negative - 160(16) ++++ mg/dL [facility] Leukocytes, UA Negative Negative - 500+++ Conrad/mcL [facility] Nitrite, UA Negative Negative - Positive [facility] pH, UA 6.0 5 - 9 [facility] Protein, UA Negative Negative - 1999(20) ++++ mg/dL [facility] Spec Grav, UA 1.015 1 - 1.03 [facility] Urobilinogen, UA 0.2 0.2 - 12 mg/dL [facility] Urinalysis macro (dipstick) panel (U)Ordered By: Ibis Sandoval on 06-04-2024 Bilirubin, UA Negative Negative - 4(70) +++ mg/dL [facility] Blood, UA Positive Negative - 50 Vasu/mcL [facility] Comment on above: trace-intact Clarity, UA Clear [facility] Color, UA Yellow [facility] Glucose, UA Negative Negative - 1999(110) ++++ mg/dL [facility] Interpretation and review of laboratory results Abnormal [facility] Ketones, UA Negative Negative - 160(16) ++++ mg/dL [facility] Leukocytes, UA Trace Negative - 500+++ Conrad/mcL [facility] Nitrite, UA Negative Negative - Positive [facility] pH, UA 5.5 5 - 9 [facility] Protein, UA Negative Negative - 1999(20) ++++ mg/dL [facility] Spec Grav, UA 1.005 1 - 1.03 [facility] Urobilinogen, UA 0.2 0.2 - 12 mg/dL [facility] ALL CBC WITH AUTO DIFFon BASOPHILS ABSOLUTE AUTO 0.0 [facility] Basophils/100 WBC (Bld) 0.5 % 0.2 - 2.0 % [facility] Eosinophils/100 WBC (Bld) 0.5 % Low 0.9 - 7.0 % [facility] Erythrocyte distribution width (RBC) [Ratio] 11.9 % 11.0 - 15.0 % [facility] IMMATURE GRANULOCYTES ABS AUTO 0.03 [facility] Immature granulocytes/100 WBC (Bld) 0.4 % 0.0 - 0.5 % [facility] Interpretation and review of laboratory results Abnormal [facility] LYMPHOCYTES ABSOLUTE AUTO 1.8 [facility] Lymphocytes/100 WBC (Bld) 23.3 % 20.5 - 60.0 % [facility] MCH (RBC) [Entitic mass] 29.7 pg 26.7 - 34.0 pg [facility] MCHC (RBC) [Mass/Vol] 34.9 g/dL 29.9 - 35.2 g/dL [facility] MCV (RBC) [Entitic vol] 85.1 fL 81.0 - 99.0 fL [facility] MONOCYTES ABSOLUTE AUTO 0.5 [facility] Monocytes/100 WBC (Bld) 6.3 % 1.7 - 12.0 % [facility] NEUTROPHILS ABSOLUTE AUTO 5.4 [facility] Neutrophils/100 WBC (Bld) 69.0 % 43.0 - 75.0 % [facility] Platelet mean volume (Bld) [Entitic vol] 10.3 fL 9.5 - 13.5 fL [facility] TBH EO # 0.0 [facility] TB PLT 206 [facility] RBC 4.55 [facility] WBC 7.8 [facility] Laboratory - Hematology and Cell countson 05-24-2024 Hematocrit (Bld) [Volume fraction] 38.7 % [facility] Hemoglobin (Bld) [Mass/Vol] 13.5 g/dL [facility] No Panel Informationon 05-24 [facility] HCG ( test) Ql (U)o n 05-23-2024 Interpretation and review of laboratory results Abnormal [facility] Preg Test, Ur Positive [facility] Urinalysis macro (dipstick) panel (U)on 05-23-2024 Bilirubin, UA Negative Negative - 4(70) +++ mg/dL [facility] Blood, UA Negative Negative - 50 Vasu/mcL [facility] Clarity, UA Clear [facility] Color, UA Yellow [facility] Glucose, UA Negative Negative - 1999(110) ++++ mg/dL [facility] Interpretation and review of laboratory results Normal [facility] Ketones, UA Negative Negative - 160(16) ++++ mg/dL [facility] Leukocytes, UA Negative Negative - 500+++ Conrad/mcL [facility] Nitrite, UA Negative Negative - Positive [facility] pH, UA 7.0 5 - 9 [facility] Protein, UA Negative Negative - 1999(20) ++++ mg/dL [facility] Spec Grav, UA 1.025 1 - 1.03 [facility] Urobilinogen, UA 1.0 0.2 - 12 mg/dL [facility] CHEMISTRYOrdered By: SYSTEM SYSTEM on 04-12-2024 Progesterone [...] Progesterone Lvl 31.70 ng/mL Invalid Interpretation Code [facility] Comment on above: Result Comment: 'F N ON FOLLICULAR = 0.10 - 0.60' 'LUTEAL = 3.00 - 17.5' 'MIDLUTEAL = 3.30 - 18.6' 'POST-MENOPAUSE = 0.10 - 0.40' '-FIRST TRIMESTER = 8.30 - 66.5' 'SECOND TRIMESTER = 18.9 - 66.1' 'THIRD TRIMESTER = 35.8 - 312.4' 'MALES = 0.14 - 2.06' Performed By: #### 2 [id number] #### [facility] [address] [place] [address] CHEMISTRYOrdered By: SYSTEM SYSTEM on 03-14-2024 Progesterone [...] Consent for Treatmenton 02-23 Consent for Treatment [id number] Normal [facility] Physician Orderon 03-14-2024 Physician Order [id number]#[id number] Normal [facility] Progesteroneon 03-14-2024 Progesterone Lvl 16.15 ng/mL Invalid Interpretation Code [facility] Comment on above: Result Comment: 'F N ON FOLLICULAR = 0.10 - 0.60' 'LUTEAL = 3.00 - 17.5' 'MIDLUTEAL = 3.30 - 18.6' 'POST-MENOPAUSE = 0.10 - 0.40' '-FIRST TRIMESTER = 8.30 - 66.5' 'SECOND TRIMESTER = 18.9 - 66.1' 'THIRD TRIMESTER = 35.8 - 312.4' 'MALES = 0.14 - 2.06' Performed By: #### 2 [id number] #### [facility] [address] [place] [address] Ambulatory Visit Summaryon 0 12-11-2023 Ambulatory Visit [...] With: Krista Daley Where: [facility] [place] Normal [facility] Family Medicine Office/Clini c Noteon 12-11-2023 Family Medicine Office/Clinic Note HPI Staff Madyson is a 23 year old female presenting to establish care Establish Care: History: Any previous diagnosis: POTS (11/30/23) History of seeing any specialist: Jyoti NICOLE for 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 BMI 33.0-33.9,adult (Z68.33: Body mass index [BMI] 33.0-33.9, adult) BMI education complete Ordered: omeprazole, 40 mg = 1 cap(s), Oral, Daily, # 30 cap(s), Refills(s) 1, Pharmacy: [facility], 168.3, cm, 12/11/23 13:07:00 EDT, Height/Length Dosing, 93.6, kg, 12/11/23 13:07:00 EDT, Weight Dosing 3. Class 1 obesity due to excess calories in adult (E66.09: Other obesity due to excess calories) see above Ordered: omeprazole, 40 mg = 1 cap(s), Oral, Daily, # 30 cap(s), Refills(s) 1, Pharmacy: [facility], 168.3, cm, 12/11/23 13:07:00 EDT, Height/Length Dosing, 93.6, kg, 12/11/23 13:07:00 EDT, Weight Dosing 4. Nonsmoker (Z78.9: Other specified health status) continue not smoking Ordered: omeprazole, 40 mg = 1 cap(s), Oral, Daily, # 30 cap(s), Refills(s) 1, Pharmacy: [facility], 168.3, cm, 12/11/23 13:07:00 EDT, Height/Length [...] 03/05/2002 Recorded (more content not included)... Normal [facility] Comment on above: Result Comment: Elec tronically Signed By: Krista Daley\.br\Date and Time Signed: 12/11/23 13:32 EDT CNOVon 11-30-2023 CNOV Office Visit (NENMMN ) ----- MADYSON MAI ([id number]) 2 F Date Time Provider Department 11/30/23 10:00 AM JYOTI DICKEY During your visit today, we recorded the following information about you: Pulse Blood pressure Weight Height 84/minute 118/79 93 kg 1.651 m Jyoti Dickey PA-C 11/30/2023 11:14 AM Signed [facility] New Patient Evaluation [...] experienced LOC while walking up the stairs. Malone prodromal symptoms including lightheadedness and tunnel vision. [...] Urination: + (more content not included)... Normal [facility] ECHOon 11-12-2023 Echocardiography Echocardiography Rep ort: Transthoracic Echo [facility] A17 Date of service: 11/12/2023 1:08:10 [...] * * * Final * * * [employer] : [id number] Normal [facility] CNOVon 10-10-2023 CNOV Office Visit (NEADMN ) ----- MADYSON MAI ([id number]) 2 F Date Time Provider Department 10/10/23 2:00 PM AURORA SANTIAGO During your visit today, we recorded the following information about you: Pulse Blood pressure Weight Height 108/minute 119/85 93 kg 1.651 jessica Aurora Santiago PA-C 10/10/2023 4:33 PM Signed [facility] New Patient Evaluation [...] on BC (more content not included)... Normal [facility] Quantiferon-TB Plus (Client Incubated)on 07-26-2023 Gamma interferon background IA Qn (Bld) 0.01 International_Unit/mL Invalid Interpretation Code [facility] Comment on above: Performed By: #### 1 [id number], [id number], [id number] #### [facility] [address] [place] [address] M. tuberculosis stim IFN-g by CD4+ CD8+ T-cells Qn (Bld) 0.30 International_Unit/mL Invalid Interpretation Code [facility] Comment on above: Performed By: #### 1 [id number], [id number], [id number], [id number] #### [facility] [address] [place] [address] M. tuberculosis stim IFN-g by CD4+ T-cells Qn (Bld) 0.23 International_Unit/mL Invalid Interpretation Code [facility] Comment on above: Performed By: #### 1 [id number], [id number], [id number], [id number] #### [facility] [address] [place] [address] M. tuberculosis stim IFN-g Ql (Bld) [Interp] Negative Invalid Interpretation Code Negative [facility] Comment on above: Result Comment: No r [...] interferon gamma. Chemiluminescence immunoassay methodology Performed at: [address] [id number] PhD Rubio Vinson Performed By: #### 1 [id number], [id number] #### [facility] [address] [place] [address] Mitogen stimulated gamma interferon Qn (Bld) >10.00 Invalid Interpretation Code [facility] Comment on above: Performed By: #### 1 [id number], [id number], [id number] #### [facility] [address] [place] [address] Service comment (Unsp spec) [Interp] Comment Invalid Interpretation Code [facility] Comment on above: Result Comment: Link tiFERON-TB [...] for the test. Performed By: #### 1 [id number], [id number], [id number], [id number] #### [facility] [address] [place] [address] Hep Bs Abon 07-25-2023 HBV surface Ab Ql (S) Non-Reactive Invalid Interpretation Code [facility] Comment on above: Result Comment: Non Reactive: Inconsistent with immunity, less than 10 mIU/mL Reactive: Consistent with immunity, greater than 9.9 mIU/mL Performed at: [address] [id number] PhD Rubio Vinson Performed By: #### 1 [id number], [id number], [id number], [id number] #### [facility] [address] [place] [address] Measles/Mumps/Rubella Immuni tyon 07-25-2023 MeV IgG IA Qn (S) 34.3 A unit/mL Invalid Interpretation Code Immune >16.4 [facility] Comment on above: Result Comment: Nega tive <13.5 Equivocal 13.5 - 16.4 Positive >16.4 Presence of antibodies to Rubeola is presumptive evidence of immunity except when acute infection is suspected. Performed By: #### 1 [id number], [id number], [id number], [id number] #### [facility] [address] [place] [address] MuV IgG IA Qn (S) <9.0 Low Immune >10.9 [facility] Comment on above: Result Comment: Nega tive <9.0 Equivocal 9.0 - 10.9 Positive >10.9 A positive result generally indicates past exposure to Mumps virus or previous vaccination. Performed at: [address] [id number] PhD Rubio Vinson Performed By: #### 1 [id number], [id number], [id number] #### [facility] [address] [place] [address] Rubella virus IgG Qn (S) 1.53 [IU]/mL Invalid Interpretation Code Immune >0.99 [facility] Comment on above: Result Comment: Non- immune <0.90 Equivocal 0.90 - 0.99 Immune >0.99 Performed By: #### 1 [id number], [id number], [id number], [id number] #### [facility] [address] [place] [address] Varic IgGon 07-25-2023 VZV IgG IA Qn (S) 475 Invalid Interpretation Code Immune >165 [facility] Comment on above: Result Comment: Nega tive <135 Equivocal 135 - 165 Positive >165 A positive result generally indicates exposure to the pathogen or administration of specific immunoglobulins, but it is not indication of active infection or stage of disease. Performed at: [address] [id number] PhD Rubio Vinson Performed By: #### 1 [id number], [id number], [id number], [id number] #### [facility] [address] [place] [address] CNOVon 07-10-2023 CNOV Office Visit (ORFWHP ) ----- MADYSON SCHMID ([id number]) 2 F Date Time Provider Department 07/10/23 9:40 AM JOSE ARMANDO GREYOsman During your visit today, we recorded the following information about you: Jose Armando Grey, 07/10/2023 10:08 AM Signed [facility] Office Visit Documentation Note [facility] Sports Medicine Orthopaedic and Rheumatologic [place] HISTORY OF PRESENT ILLNESS (HPI) CHIEF COMPLAINT / REASON FOR VISIT SERVICE DATE: July 10, 2023 PCP: No primary care provider on file. Madyson Schmid is here today at request of Dr. Jose Armando Schmid specifically for consultation of my opinion in regards to the chief complaint listed below. Correspondence will be shared today via the [employer] electronic health record or through regular mail, [...] expectations. She need to consider PT or radio personality. Reaction knee brace Consider [place] toradol, did discuss orthobiologics Follow up: Films prior to visit: Written instructions (see patient instructions) and verbal health education given to patient. Patient verbalizes understanding and agrees with the treatment plan. Jose Armando Grey D.O. [facility] Orthopaedic and Rheumatologic [place], [facility] AND [employer] Program Team Physician, [facility] [employer] Consulting Physician, [place] Martin Nagel, Housing Director [phone] Referring Provider: SELF [200] Allergies As of [...] Level of (more content not included)... [facility] Tobacco Screening.on 023 Adult depression screening assessment No -[facility] 600 DO Work Phone: Tobacco use status CPHS b) No [facility] 600 DO Work Phone: Activated partial thrombopla stin time (aPTT) in platelet poor plasma by coagulation aOrdered By: Haris Martino on 06-08-2023 aPTT Coag (PPP) [Time] 28.9 s 25.1-36.5 [facility] Comment on above: A hematocrit value g reater than 55% may lead to inaccurate results in coagulation testing. Patients having hematocrit values >55% require a special collection tube for coagulation studies. Please contact the laboratory at [phone] for redraw instructions. Alanine aminotransferase [En zymatic activity/volume] in Serum or PlasmaOrdered By: Harsi Martino on 06-08-2023 ALT [Catalytic activity/Vol] 42 U/L 7-52 [facility] Albumin [Mass/volume] in Ser um or Plasma by Bromocresol green (BCG) dye binding methoOrdered By: Haris Martino on 06-08-2023 Albumin BCG dye [Mass/Vol] 4.6 g/dL 3.5-5.7 [facility] Alkaline phosphatase [Enzyma tic activity/volume] in Serum or PlasmaOrdered By: Haris Martino on 06-08-2023 ALP [Catalytic activity/Vol] 78 U/L 34-104 [facility] Aspartate aminotransferase [ Enzymatic activity/volume] in Serum or PlasmaOrdered By: Haris Martino on 06-08-2023 AST [Catalytic activity/Vol] 22 U/L 13-39 [facility] Automated erythrocytes count in urine sediment (number/area)Ordered By: Haris Martino on 06-08-2023 RBC Auto (Urine sed) [#/Area] 5-9 [HPF] 0-4 [facility] Automated leukocytes count i n urine sediment (number/area)Ordered By: Haris Martino on 06-08-2023 WBC Auto (Urine sed) [#/Area] 3-4 [HPF] 0-4 [facility] Basophils Auto (Bld) [#/Vol] Ordered By: Haris Martino on 06-08-2023 Basophils (Bld) [#/Vol] 0.1 10*3/uL 0.0-0.2 [facility] Basophils/100 WBC Auto (Bld) Ordered By: Haris Martino on 06-08-2023 Basophils/100 WBC (Bld) 1.0 % . [facility] Bilirubin Test strip Ql (U)O rdered By: Haris Martino on 06-08-2023 Bilirubin Ql (U) Negative Negative [facility] Bilirubin.direct [Mass/volum e] in Serum or PlasmaOrdered By: Haris Martino on 06-08-2023 Bilirubin.direct [Mass/Vol] 0.10 mg/dL 0.03-0.18 [facility] Bilirubin.total [Mass/volume ] in Serum or PlasmaOrdered By: Haris Martino on 06-08-2023 Bilirubin [Mass/Vol] 0.4 mg/dL 0.3-1.0 [facility] Calcium [Mass/volume] in Ser um or PlasmaOrdered By: Haris Martino on 06-08-2023 Calcium [Mass/Vol] 9.4 mg/dL 8.6-10.3 [facility] Carbon dioxide, total [Moles /volume] in Serum or PlasmaOrdered By: Haris Martino on 06-08-2023 CO2 [Moles/Vol] 29.3 mmol/L 21.0-31.0 [facility] Chloride [Moles/volume] in S colin or PlasmaOrdered By: Haris Martino on 06-08-2023 Chloride [Moles/Vol] 104 mmol/L 98-107 [facility] Color Auto (U)Ordered By: Terrell red Salena on 06-08-2023 Color (U) Yellow Yellow [facility] Creatine kinase [Enzymatic a ctivity/volume] in Serum or PlasmaOrdered By: Haris Martino on 06-08-2023 CK [Catalytic activity/Vol] 55 U/L 30-223 [facility] Creatinine [Mass/volume] in Serum or PlasmaOrdered By: Haris Martino on 06-08-2023 Creatinine [Mass/Vol] 0.64 mg/dL 0.60-1.20 [facility] Eosinophils Auto (Bld) [#/Vo l]Ordered By: Haris Martino on 06-08-2023 Eosinophils (Bld) [#/Vol] 0.1 10*3/uL 0.0-0.45 [facility] Eosinophils/100 WBC Auto (Bl d)Ordered By: Haris Martino on 06-08-2023 Eosinophils/100 WBC (Bld) 0.8 % . [facility] Erythrocyte distribution wid th Auto (RBC) [Ratio]Ordered By: Haris Martino on 06-08-2023 Erythrocyte distribution width (RBC) [Ratio] 12.9 % 11.9-15.3 [facility] Fibrin D-dimer [Presence] in Platelet poor plasma by Latex agglutinationOrdered By: Haris Martino on 06-08-2023 Fibrin D-dimer LA Ql (PPP) < 200 ng/mL 0-243 [facility] Comment on above: The reference range for [...] coagulation studies. Please contact the laboratory at [phone] for redraw instructions. Globulin Calc (S) [Mass/Vol] Ordered By: Haris Martino on 06-08-2023 Globulin (S) [Mass/Vol] 2.9 g/dL [facility] Glucose [Mass/volume] in Ser um or PlasmaOrdered By: Haris Martino on 06-08-2023 Glucose [Mass/Vol] 79 mg/dL 70-100 [facility] Comment on above: ADA recommended refe rence rangeRandom Glucose Reference Range is dependent on time and content of last meal. Glucose of more than 200 mg/dL in a nonstressed, ambulatory subject supports the diagnosis of Diabetes Mellitus. HCG ( test) IA.rapi d Ql (U)Ordered By: Haris Martino on 06-08-2023 HCG ( test) Ql (U) Negative [facility] Hematocrit Auto (Bld) [Volum e fraction]Ordered By: Haris Martino on 06-08-2023 Hematocrit (Bld) [Volume fraction] 42.4 % 34.0-46.4 [facility] Hemoglobin [Mass/volume] in BloodOrdered By: Haris aMrtino on 06-08-2023 Hemoglobin (Bld) [Mass/Vol] 14.5 g/dL 11.8-15.4 [facility] INR in Platelet poor plasma by Coagulation assayOrdered By: Haris Martino on 06-08-2023 INR Coag (PPP) [Relative time] 1.0 {INR} [facility] Comment on above: INR Therapeutic Rang e [...] 06-08-2023 Ketones (U) [Mass/Vol] Negative Negative Fi [facility] - UrinalysisOrder ed By: Haris Martino on 06-08-2023 Hyaline casts LM Ql (Urine sed) 0-8 [LPF] 0-8 [facility] Leukocytes [#/volume] correc matt for nucleated erythrocytes in Blood by Automated counOrdered By: Haris Martino on 06-08-2023 WBC corrected for nucl RBC Auto (Bld) [#/Vol] 8.3 10*3/uL 3.8-11.6 [facility] Lymphocytes Auto (Bld) [#/Vo l]Ordered By: Haris Martino on 06-08-2023 Lymphocytes (Bld) [#/Vol] 3.0 10*3/uL 1.00-4.8 [facility] Lymphocytes/100 WBC Auto (Bl d)Ordered By: Haris Martino on 06-08-2023 Lymphocytes/100 WBC (Bld) 36.0 % . [facility] MCH Auto (RBC) [Entitic mass ]Ordered By: Haris Martino on 06-08-2023 MCH (RBC) [Entitic mass] 29.4 pg 24.7-34.3 [facility] MCHC Auto (RBC) [Mass/Vol]Or dered By: Haris Martino on 06-08-2023 MCHC (RBC) [Mass/Vol] 34.2 g/dL 32.0-35.0 [facility] MCV Auto (RBC) [Entitic vol] Ordered By: Haris Martino on 06-08-2023 MCV (RBC) [Entitic vol] 85.9 fL 80-100 [facility] Monocyte distribution width [Entitic volume] in Blood by AutomatedOrdered By: Haris Martino on 06-08-2023 Monocyte distribution width Auto (Bld) [Entitic vol] 18.39 % 0.00-20.00 [facility] Monocytes Auto (Bld) [#/Vol] Ordered By: Haris Martino on 06-08-2023 Monocytes (Bld) [#/Vol] 0.5 10*3/uL 0.0-0.8 [facility] Monocytes/100 WBC Auto (Bld) Ordered By: Haris Martino on 06-08-2023 Monocytes/100 WBC (Bld) 6.6 % . [facility] Natriuretic peptide B [Mass/ Vol]Ordered By: Haris Martino on 06-08-2023 Natriuretic peptide B (Bld) [Mass/Vol] 9.0 pg/mL 5-100 [facility] Neutrophils Auto (Bld) [#/Vo l]Ordered By: Haris Martino on 06-08-2023 Neutrophils (Bld) [#/Vol] 4.6 10*3/uL 1.8-7.7 [facility] Neutrophils/100 WBC Auto (Bl d)Ordered By: Haris Martino on 06-08-2023 Neutrophils/100 WBC (Bld) 55.6 % . [facility] Nitrite Test strip Ql (U)Ord ered By: Haris Martino on 06-08-2023 Nitrite Ql (U) Negative Negative [facility] No Panel InformationOrdered By: Haris Martino on 06-08-2023 Estimated GFR (CKD-EPI) > 60.0 mL/Min [facility] Creatinine Clearance (Chem 155.50 [facility] Nucleated erythrocytes [Pres ence] in Blood by Automated countOrdered By: Haris Martino on 06-08-2023 Nucleated RBC Auto Ql (Bld) 0.1 /100{WBC} 0-0.5 [facility] Platelet mean volume Auto (B ld) [Entitic vol]Ordered By: Haris Martino on 06-08-2023 Platelet mean volume (Bld) [Entitic vol] 8.2 fL 6.3-10.7 [facility] Platelets Auto (Bld) [#/Vol] Ordered By: Haris Martino on 06-08-2023 Platelets (Bld) [#/Vol] 225 10*3/uL 150-450 [facility] Potassium [Moles/volume] in Serum or PlasmaOrdered By: Haris Martino on 06-08-2023 Potassium [Moles/Vol] 4.0 mmol/L 3.5-5.1 [facility] Protein Auto test strip (U) [Mass/Vol]Ordered By: Haris Martino on 06-08-2023 Protein (U) [Mass/Vol] Negative Negative Fi [facility] Protein [Mass/volume] in Ser um or PlasmaOrdered By: Haris Martino on 06-08-2023 Protein [Mass/Vol] 7.5 g/dL 6.4-8.9 [facility] Prothrombin time (PT)Ordered By: Haris Martino on 06-08-2023 PT Coag (PPP) [Time] 12.2 s 9.0-12.9 [facility] Comment on above: A hematocrit value g reater than 55% may lead to inaccurate results in coagulation testing. Patients having hematocrit values >55% require a special collection tube for coagulation studies. Please contact the laboratory at [phone] for redraw instructions. RBC Auto (Bld) [#/Vol]Ordere d By: Haris Martino on 06-08-2023 RBC (Bld) [#/Vol] 4.94 10*6/uL 3.60-5.00 [facility] Serum or plasma albumin/glob ulin mass ratioOrdered By: Haris Martino on 06-08-2023 Albumin/Globulin [Mass ratio] 1.6 {ratio} [facility] Serum or plasma anion gap de terminationOrdered By: Haris Martino on 06-08-2023 Anion gap [Moles/Vol] 9.7 mmol/L 6.0-15.0 [facility] Serum or plasma non-glucuron idated bilirubin measurement (mass/volume)Ordered By: Haris Martino on 06-08-2023 Bilirubin.indirect [Mass/Vol] 0.3 mg/dL [facility] Sodium [Moles/volume] in Ser um or PlasmaOrdered By: Haris Martino on 06-08-2023 Sodium [Moles/Vol] 139 mmol/L 136-145 [facility] Specific gravity Auto test s trip (U) [Rel density]Ordered By: Haris Martino on 06-08-2023 Specific gravity (U) [Rel density] 1.015 1.001-1.03 0 [facility] Squamous epithelial cells de tection in urine sediment by light microscopyOrdered By: Haris Martino on 06-08-2023 Epithelial cells.squamous LM Ql (Urine sed) 3-4 [HPF] 0-2 [facility] Troponin I.cardiac [Mass/vol ume] in Serum or Plasma by Detection limit <= 0.01 ng/Ordered By: Haris Martino on 06-08-2023 Troponin I.cardiac DL <= 0.01 ng/mL [Mass/Vol] < 2.3 pg/mL 0.0-15.0 [facility] Urea nitrogen [Mass/volume] in Serum or PlasmaOrdered By: Haris Martino on 06-08-2023 Urea nitrogen [Mass/Vol] 10 mg/dL 7-25 [facility] Urine bacteria detection by automated methodOrdered By: Haris Martino on 06-08-2023 Bacteria Auto Ql (U) 1+ None Seen [facility] Urine clarity by refractomet ry automatedOrdered By: Haris Martino on 06-08-2023 Clarity Refractometry automated (U) Clear Clear [facility] Urine glucose measurement by automated test strip (mass/volume)Ordered By: Haris Martino on 06-08-2023 Glucose Auto test strip (U) [Mass/Vol] Normal mg/dL Normal [facility] Urine hemoglobin detection b y automated test stripOrdered By: Haris Martino on 06-08-2023 Hemoglobin Auto test strip Ql (U) Negative Negative [facility] Urine leukocyte esterase det ection by automated test stripOrdered By: Haris Martino on 06-08-2023 Leukocyte esterase Auto test strip Ql (U) 1+ Negative [facility] Urobilinogen Auto test strip (U) [Mass/Vol]Ordered By: Haris Martino on 06-08-2023 Urobilinogen (U) [Mass/Vol] Normal mg/dL Normal [facility] WBC Auto (Bld) [#/Vol]Ordere d By: Haris Martino on 06-08-2023 WBC (Bld) [#/Vol] 8.3 10*3/uL 3.8-11.6 [facility] pH Auto test strip (U)Ordere d By: Haris Martino on 06-08-2023 pH (U) 6.5 [pH] 5.0-9.0 [facility] Alanine aminotransferase [En zymatic activity/volume] in Serum or PlasmaOrdered By: Carlitos Nguyen on 04-25-2023 ALT [Catalytic activity/Vol] 18 U/L 7-52 [facility] Albumin [Mass/volume] in Ser um or Plasma by Bromocresol green (BCG) dye binding methoOrdered By: Carlitos Nguyen on 04-25-2023 Albumin BCG dye [Mass/Vol] 4.8 g/dL 3.5-5.7 [facility] Alkaline phosphatase [Enzyma tic activity/volume] in Serum or PlasmaOrdered By: Carlitos Nguyen on 04-25-2023 ALP [Catalytic activity/Vol] 73 U/L 34-104 [facility] Aspartate aminotransferase [ Enzymatic activity/volume] in Serum or PlasmaOrdered By: Carlitos Nguyen on 04-25-2023 AST [Catalytic activity/Vol] 18 U/L 13-39 [facility] Bilirubin.total [Mass/volume ] in Serum or PlasmaOrdered By: Carlitos Nguyen on 04-25-2023 Bilirubin [Mass/Vol] 0.5 mg/dL 0.3-1.0 [facility] Calcium [Mass/volume] in Ser um or PlasmaOrdered By: Carlitos Nguyen on 04-25-2023 Calcium [Mass/Vol] 9.9 mg/dL 8.6-10.3 [facility] Carbon dioxide, total [Moles /volume] in Serum or PlasmaOrdered By: Carlitos Nguyen on 04-25-2023 CO2 [Moles/Vol] 25.9 mmol/L 21.0-31.0 [facility] Chloride [Moles/volume] in S colin or PlasmaOrdered By: Carlitos Nguyen on 04-25-2023 Chloride [Moles/Vol] 105 mmol/L 98-107 [facility] Cholesterol [Mass/volume] in Serum or PlasmaOrdered By: Carlitos Nguyen on 04-25-2023 Cholesterol [Mass/Vol] 208 mg/dL 140-200 [facility] Comment on above: Chol less than 200 m g/dl low riskChol 201-239 mg/dl borderline riskChol 240 mg/dl and greater high risk Cholesterol in LDL Calc [Mas s/Vol]Ordered By: Carlitos Nguyen on 04-25-2023 Cholesterol in LDL [Mass/Vol] 136 mg/dL 0-100 [facility] Comment on above: LDL ATP III CLASSIFI CATIONLDL less than 100 mg/dL OptimalLDL 100-129 mg/dL Near or above optimalLDL 130-159 mg/dL Borderline highLDL 160-189 mg/dL HighLDL greater than 189 mg/dL Very high Cholesterol in VLDL Calc [Ma ss/Vol]Ordered By: Carlitos Nguyen on 04-25-2023 Cholesterol in VLDL [Mass/Vol] 16 mg/dL [facility] Creatinine [Mass/volume] in Serum or PlasmaOrdered By: Carlitos Nguyen on 04-25-2023 Creatinine [Mass/Vol] 0.81 mg/dL 0.60-1.20 [facility] Globulin Calc (S) [Mass/Vol] Ordered By: Carlitos Nguyen on 04-25-2023 Globulin (S) [Mass/Vol] 2.6 g/dL [facility] Glucose [Mass/volume] in Ser um or PlasmaOrdered By: Carlitos Nguyen on 04-25-2023 Glucose [Mass/Vol] 84 mg/dL 70-100 [facility] No Panel InformationOrdered By: Carlitos Nguyen on 04-25-2023 Estimated GFR (CKD-EPI) > 60.0 mL/Min [facility] Creatinine Clearance (Chem N/A [facility] Potassium [Moles/volume] in Serum or PlasmaOrdered By: Carlitos Nguyen on 04-25-2023 Potassium [Moles/Vol] 4.3 mmol/L 3.5-5.1 [facility] Comment on above: Hemolysis is present at a level that could interfere with the result. Protein [Mass/volume] in Ser um or PlasmaOrdered By: Carlitos Nguyen on 04-25-2023 Protein [Mass/Vol] 7.4 g/dL 6.4-8.9 [facility] Serum or plasma albumin/glob ulin mass ratioOrdered By: Carlitos Nguyen on 04-25-2023 Albumin/Globulin [Mass ratio] 1.8 {ratio} [facility] Serum or plasma anion gap de terminationOrdered By: Carlitos Nguyen on 04-25-2023 Anion gap [Moles/Vol] 12.4 mmol/L 6.0-15.0 [facility] Serum or plasma high density lipoprotein (HDL) cholesterol measurementOrdered By: Carlitos Nguyen on 04-25-2023 Cholesterol in HDL [Mass/Vol] 55 mg/dL 23-92 [facility] Comment on above: HDL CHOL ATP-III CLA SSIFICATION Cardiovascular RiskHDL > or equal to 60 mg/dL LOWHDL < 40 mg/dL HIGH Serum or plasma total choles terol/high density lipoprotein (HDL) cholesterol mass ratOrdered By: Carlitos Nguyen on 04-25-2023 Cholesterol.total/Chol esterol in HDL [Mass ratio] 3.8 {ratio} <5.0 [facility] Sodium [Moles/volume] in Ser um or PlasmaOrdered By: Carlitos Nguyen on 04-25-2023 Sodium [Moles/Vol] 139 mmol/L 136-145 [facility] Triglyceride [Mass/volume] i n Serum or PlasmaOrdered By: Carlitos Nguyen on 04-25-2023 Triglyceride [Mass/Vol] 83 mg/dL 0-149 [facility] Comment on above: TRIG ATP III CLASSIF ICATIONTRIG less than 150 mg/dL NormalTRIG 150-199 mg/dL Borderline highTRIG 200-500 mg/dL High TRIG greater than 500 mg/dL Very highStandard traceable to the Center for Disease Conrtrol and Prevention (CDC) test method. Urea nitrogen [Mass/volume] in Serum or PlasmaOrdered By: Carlitos Nguyen on 04-25-2023 Urea nitrogen [Mass/Vol] 15 mg/dL 7-25 [facility] Tobacco Screening.on 023 Adult depression screening assessment No [facility] [employer] 320 DO Work Phone: Fall risk assessment a) No falls within the last year [facility] [employer] DO Work Phone: Tobacco use status CPHS b) No [facility] [employer] 320 DO Work Phone: Office Visit (Cardiology)on [...] in adult Healthy Weight Tips; Status:Complete; Done: [id number] SocHx: Never a smoker Tobacco Use Screening; Status:Complete; Done: 50Ajc9110 Patient Instructions Please bring all medicines, vitamins, [...] she did get a second opinion in [place], and no change in medication was suggested [...] sinus sometime (more content not included)... Normal [employer] Tobacco Screening.on 022 Tobacco use status CPHS b) No [facility] Heart-[employer] y 250 DO Work Phone: Cardiovasc Arrhythmia Result son 07-31-2022 Cardiovasc Arrhythmia Results Reason For Visit MADYSON is here for the application of a Ziop[employer] monitor. Ordering Physician: Dr. Maza Diagnosis: abn TTT, dyspnea, syncope, autonomic orthostatic hypotension [facility] equipment agreement signed. MADYSON understands monitor is to be returned on: 08/14/22 Monitor number [id number] applied. Procedure Date I received for dictation [...] MD; Aug 28 2022 10:26AM EST Normal [employer] Office Visit (Cardiology)on 07-21-2022 Follow-up visit Diagnoses/Problems [...] a week.; Status:Complete - Retrospective Authorization; Done: [id number] Diets that are low in carbohydrates and [...] a smoker Tobacco Use Screening; Status:Complete; Done: 42Atg5577 Patient Instructions Drink plenty of water daily, [...] heart murmur and has been transferred to [place] [facility] There is no family history of SIDS, [...] cardiac data (more content not included)... Normal [employer] Tobacco Screening.on Fall risk assessment b) One or more fall s in the last year [facility] [employer] 320 DO Work Phone: Tobacco use status CP b) No [facility] [employer] [address] DO Work Phone: Office Visit (Cardiology)on [...] Confirmed - N/A AMA Intake updated by [facility] ACCOUNT (INTRANET) on 2022-07-11 22:02 New Recipient: [...] Done: 10Jul2022 Healthy Weight Tips; Status:Complete; Done: 54Tgt4445 Some eating tips that can help you lose weight.; Status:Complete; Done: 00Ngx1520 Dyspnea (786.09) (R06.00) Class 1 obesity with [...] from 6 (more content not included)... Normal [employer] Tobacco Screening.on 022 Tobacco use status HS b) No [facility] y 250 DO Work Phone: COVID CepheidOrdered By: Daniele Pearce on 06-01-2022 SARS-CoV-2 (COVID-19) Ab IA Ql Negative Negative [facility] Comment on above: This is a duplicate CepAeternusLEDid Xpert Xpress CoV-2/Flu/RSV Plus RNA by RT-PCR result to be used for statistical tracking purpose only. SARS-CoV-2 (COVID-19) RNA PERFECTO+probe Ql (Unsp spec) [facility] Office Visit (Cardiology)on 05-18-2022 [...] in adult Healthy Weight Tips; Status:Complete; Done: 49Zzy8354 Some eating tips that can help you lose weight.; Status:Complete; Done: 36Bae6436 Dyspnea, Syncope, unspecified syncope type Urine Test; Status:Active - Retrospective By Protocol Authorization; Requested for:[id number]; Palpitation Start: Atenolol 25 MG Oral Tablet; TAKE 1 TABLET DAILY Syncope, unspecified syncope type Tilt Table; Status:Hold For - Scheduling,Retrospective By Protocol Authorization; Requested for:[id number]; Patient Instructions Please bring all medicines, vitamins, [...] walking to the bathroom. 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 She has 3 dogs that she had, and 1 cat at home. She is not orthostatic. She is feeling palpitations quite a bit. Results of the pulmonary function test and a [employer] was reviewed. Also reviewed stress test and [...] 3.5 c (more content not included)... Normal [employer] Tobacco Screening.on 022 Tobacco use status CPHS b) No [facility] y 250 DO Work Phone: No Panel Informationon 05-03 [facility] y 250 DO Work Phone: [facility] y 250 DO Work Phone: Cardiovasc Arrhythmia Result son 03-28-2022 Cardiovasc Arrhythmia Results Reason For Visit Event Monitor: MADYSON is here for the application of a 30 day event monitor in office., Diagnosis: Palps, Dyspnea, Chest pain Ordering Physician: MG Malone sent to: [employer] Monitor number [id number] applied. Holter monitor printed and placed on [...] Palpitation (785.1) (R00.2) Future Appointments Date/TimeProviderSpecialt [facility] 05/03/2022 10:00 María Elena Cesar MDCardiologySurgery [facility] 05/18/2022 09:15 Melodie Sylvester MDCardiology703 [facility] 250 DO Signatures Electronically signed by : Melodie Alcaraz MD; May 01 2022 7:56PM EST (Author) Normal [facility] - Chemistry and C hemistry - challengeOrdered By: Melodie Alcaraz on 03-24-2022 Natriuretic peptide B (Bld) [Mass/Vol] 27.0 pg/mL 5-100 [facility] No Panel InformationOrdered By: Melodie Alcaraz on 03-24-2022 D-Dimer Quantitative (PE/DVT) < 200 ng/mL 0-243 [facility] Comment on above: The reference range for [...] No Panel Informationon 03-24 0.70\S\0.70 Normal 0.45-5.33 -[facility] Heart-Kajal[facility] y 250 DO Work Phone: Comment on above: PERFORMED BY:[facility] [id number] MEDICAL DIRECTOROFE ELLIS M.D. 0.99\S\0.99 Normal 0.61-1.12 [facility] DO Work Phone: 27.0\S\27.0 Normal 5-100 [facility] DO Work Phone: Comment on above: PERFORMED BY:[place] [address] [place], [place] [phone] MEDICAL DIRECTOROFE ELLIS M.D. < 200 Normal 0-243 [facility] Work Phone: Comment [...] in hospitalized patients due to co-morbid conditions.PERFORMED BY:[place] [address] [place] [id number] MEDICAL DIRECTOROFE ELLIS M.D. TSH DL <= 0.005 mIU/L QnOrde red By: Melodie Alcaraz on 03-24-2022 TSH Qn 0.70 m[IU]/L 0.45-5.33 [facility] Thyroxine (T4) free [Mass/vo lume] in Serum or PlasmaOrdered By: Melodie Alcaraz on 03-24-2022 Free T4 [Mass/Vol] 0.99 ng/dL 0.61-1.12 [facility] Office Visit (Cardiology)on 03-23-2022 Follow-up [...] twin brother had [facility] be [facility] and has history of heart murmur. Patient [...] frequently pic (more content not included)... Normal [employer] PHQ-2 VITALSon 03-23-2022 Adult depression screening assessment No [facility] y 250 DO Work Phone: Fall risk assessment c) Not medically indicated [facility] Heart-Gliphousk y 250 DO Work Phone: Tobacco use status CPHS b) No [facility] y 250 DO Work Phone: ARMANI BY IFA WITH REFLEXon Nuclear Ab IF (S) [Titer] Negative Negative [facility] CCP ANTIBODY IGGon 2 Cyclic citrullinated peptide IgG Qn <15 <20 Units [facility] Cyclic citrullinated peptide IgG Qnon 01-26-2022 CCP Antibody IgG Qualitative Negative Negative [facility] Nuclear Ab IA Ql (S)on 01-26 ARMANI by EIA, Qual Negative Negative [facility] ARMANI BY IFA WITH REFLEXon Nuclear Ab IF (S) [Titer] Negative Normal Negative [facility] Comment on above: Order Comment: Speci men Type: BLOOD SPECIMEN Ordering Facility: [facility] Address: [address], [place] [address] Result Comment: Anti -nuclear antibody test is used as an aid in diagnosis of systemic autoimmune diseases. Where positive and clinically warranted, follow-up using disease-specific testing is recommended. Low positive titers are not uncommon with advanced age, certain chronic infections, and malignancies among others. Test methodology: Indirect fluorescence immunoassay (IFA) using HEp-2 cells. Performed By: #### A NAIFR #### [facility] CLIA [id number] [address] [place] [address] [place] C-REACTIVE PROTEIN (CRP)on 0 01-25-2022 CRP [Mass/Vol] 0.4 mg/dL <0.9 mg/dL [facility] C1 ESTERASE INHIBITon 2021 C1 ESTERASE INHIBIT 26 mg/dL Normal 21-38 [facility] Comment on above: Order Comment: Speci men Type: BLOOD SPECIMEN Ordering Facility: [facility] Address: [address] [place] [address] Result Comment: Perf ormed By: [employer] [address] [place] [address] Waste Examiner: Brittni Moscoso MD Performed By: #### 1 6570-4, 36292-2, 12624-4, 31676-5, 56213-3, 17479-0, 08219-5, 29582-2 #### [facility] CLIA [id number] [address] [place] [address] [place] C2 COMPLEMENT BLDon 01-26-20 22 C2 COMPLEMENT 2.4 mg/dL Normal 1.6-4.0 [facility] Comment on above: Order Comment: Speci ana rosa Type: BLOOD SPECIMEN Ordering Facility: [facility] Address: [address] [place] [address] Result Comment: INTE RPRETIVE INFORMATION: Complement Component 2 Decreased C2 levels may be associated with increased susceptibility to infection (especially pneumococcal infections), systemic lupus erythematosus-like disease, rashes, arthritis and nephritis, and with C1-Esterase deficiency. Increased C2 levels are associated with the acute phase response. This test was developed and its performance characteristics determined by [employer]. It has not been cleared or approved by the [place] Food and Drug Administration. This test was performed in a CLIA certified laboratory and is intended for clinical purposes. Performed By: [employer] [address] [place] [address] Waste Examiner: Brittni Moscoso MD Performed By: #### 1 6570-4, 79784-0, 63090-9, 00660-3, 78590-2, 92346-6, 67667-9, 06994-6 #### [facility] CLIA [id number] [address] [place] [address] [place] C3 COMPLEMENT BLDon 01-26-20 22 Complement C3 [Mass/Vol] 130 mg/dL 86 - 166 mg/dL [facility] C3 SerPl-mCncon 01-25-2022 Complement C3 [Mass/Vol] 130 mg/dL Normal 86-166 [facility] Comment on above: Order Comment: Speci men Type: BLOOD SPECIMEN Ordering Facility: [facility] Address: [address] [place] [address] Performed By: #### 1 6570-4, 48196-6, 73551-5, 54222-8, 91920-8, 64109-4, 51170-8, 77268-0 #### [facility] CLIA [id number] [address] [place] [address] [place] C4 COMPLEMENT BLDon 01-26-20 Complement C4 [Mass/Vol] 30 mg/dL 13 - 46 mg/dL [facility] C4 SerPl-ncon 01-25-2022 Complement C4 [Mass/Vol] 30 mg/dL Normal 13-46 [facility] Comment on above: Order Comment: Speci men Type: BLOOD SPECIMEN Ordering Facility: [facility] Address: [address] [place], [place] [address] Performed By: #### 1 6570-4, 86251-7, 16490-4, 96695-1, 86844-9, 55051-8, 57914-4, 58252-5 #### [facility] CLIA [id number] [address] [place] [address] [place] CBC panel Auto (Bld)on 01-25 Erythrocyte distribution width (RBC) [Ratio] 12.1 % Normal 11.5-15.0 [facility] Comment on above: Order Comment: Speci men Type: BLOOD SPECIMEN Ordering Facility: [facility] Address: [address] [place], [place] [address] Performed By: #### 1 6570-4, 01431-7, 77923-9, 69979-1, 12075-3, 49839-1, 93642-9, 82115-0 #### [facility] CLIA [id number] [address] [place] [address] [place] Hematocrit (Bld) [Volume fraction] 42.6 % Normal 36.0-46.0 [facility] Comment on above: Order Comment: Speci men Type: BLOOD SPECIMEN Ordering Facility: [facility] Address: [address] [place] [address] Performed By: #### 1 6570-4, 13093-6, 22200-0, 66214-5, 79037-1, 97937-3, 74741-6, 10375-8 #### [facility] CLIA [id number] [address] [place] [address] [place] Hemoglobin (Bld) [Mass/Vol] 13.8 g/dL Normal 11.5-15.5 [facility] Comment on above: Order Comment: Speci men Type: BLOOD SPECIMEN Ordering Facility: [facility] Address: [address] [place] [address] Performed By: #### 1 6570-4, 80873-7, 38523-3, 22440-1, 08499-2, 98637-0, 46481-0, 52144-2 #### [facility] CLIA [id number] [address] [place] [address] [place] MCH (RBC) [Entitic mass] 28.3 pg Normal 26.0-34.0 [facility] Comment on above: Order Comment: Speci men Type: BLOOD SPECIMEN Ordering Facility: [facility] Address: [address] [place] [address] Performed By: #### 1 6570-4, 71393-3, 02408-8, 65111-5, 50046-1, 35296-5, 04248-0, 69434-1 #### [facility] CLIA [id number] [address] [place] [address] [place] MCHC (RBC) [Mass/Vol] 32.4 g/dL Normal 30.5-36.0 [facility] Comment on above: Order Comment: Speci men Type: BLOOD SPECIMEN Ordering Facility: [facility] Address: [address] [place] [address] Performed By: #### 1 6570-4, 54157-5, 89888-5, 36191-6, 47607-4, 16403-3, 21032-3, 17258-2 #### [facility] CLIA [id number] [address] [place] [address] [place] MCV (RBC) [Entitic vol] 87.3 fL Normal 80.0-100.0 [facility] Comment on above: Order Comment: Speci men Type: BLOOD SPECIMEN Ordering Facility: [facility] Address: [address] [place] [address] Performed By: #### 1 6570-4, 33012-5, 63862-2, 15747-9, 73314-6, 63212-6, 85517-9, 46530-5 #### [facility] CLIA [id number] [address] [place] [address] [place] Nucleated RBC (Bld) [#/Vol] 10*3/uL Normal <0.01 [facility] Comment on above: Order Comment: Speci men Type: BLOOD SPECIMEN Ordering Facility: [facility] Address: [address] [place] [address] Performed By: #### 1 6570-4, 82675-0, 33780-9, 44364-3, 81749-7, 04372-7, 05573-8, 71397-2 #### [facility] CLIA [id number] [address] [place] [address] [place] Platelet mean volume (Bld) [Entitic vol] 10.3 fL Normal 9.0-12.7 [facility] Comment on above: Order Comment: Speci men Type: BLOOD SPECIMEN Ordering Facility: [facility] Address: [address] [place] [address] Performed By: #### 1 6570-4, 41026-5, 63308-3, 23563-4, 51745-5, 62327-6, 51281-9, 72190-0 #### [facility] CLIA [id number] [address] [place] [address] [place] Platelets (Bld) [#/Vol] 213 10*3/uL Normal 150-400 [facility] Comment on above: Order Comment: Speci men Type: BLOOD SPECIMEN Ordering Facility: [facility] Address: [address] [place] [address] Performed By: #### 1 6570-4, 56259-1, 70167-8, 01859-0, 98269-0, 36115-8, 82505-5, 20011-5 #### [facility] CLIA [id number] [address] [place] [address] [place] RBC (Bld) [#/Vol] 4.88 10*6/uL Normal 3.90-5.20 [facility] Comment on above: Order Comment: Speci men Type: BLOOD SPECIMEN Ordering Facility: [facility] Address: [address] [place], [place] [address] Performed By: #### 1 6570-4, 87548-6, 33719-2, 09432-5, 72791-1, 90798-5, 32957-5, 33444-8 #### [facility] CLIA [id number] [address] [place] [address] [place] WBC (Bld) [#/Vol] 4.77 10*3/uL Normal 3.70-11.00 [facility] Comment on above: Order Comment: Speci men Type: BLOOD SPECIMEN Ordering Facility: [facility] Address: [address] [place] [address] Performed By: #### 1 6570-4, 06552-7, 37104-3, 49776-7, 70606-9, 45227-7, 67042-5, 14754-0 #### [facility] CLIA [id number] [address] [facility] [address] STATES OF [facility] Erythrocyte distribution width (RBC) [Ratio] 12.1 % 11.5 - 15.0 % [facility] Hematocrit (Bld) [Volume fraction] 42.6 % 36.0 - 46.0 % [facility] Hemoglobin (Bld) [Mass/Vol] 13.8 g/dL 11.5 - 15.5 g/dL [facility] MCH (RBC) [Entitic mass] 28.3 pg 26.0 - 34.0 pg [facility] MCHC (RBC) [Mass/Vol] 32.4 g/dL 30.5 - 36.0 g/dL [facility] MCV (RBC) [Entitic vol] 87.3 fL 80.0 - 100.0 fL [facility] Nucleated RBC (Bld) [#/Vol] 10*3/uL <0.01 k/uL [facility] Platelet mean volume (Bld) [Entitic vol] 10.3 fL 9.0 - 12.7 fL [facility] Platelets (Bld) [#/Vol] 213 10*3/uL 150 - 400 k/uL [facility] RBC (Bld) [#/Vol] 4.88 10*6/uL 3.90 - 5.20 m/uL [facility] WBC (Bld) [#/Vol] 4.77 10*3/uL 3.70 - 11.00 k/uL [facility] CRP SerPl-mCncon 01-25-2022 CRP [Mass/Vol] 0.4 mg/dL Normal <0.9 [facility] Comment on above: Order Comment: Speci men Type: BLOOD SPECIMEN Ordering Facility: [facility] Address: [address] [place] [address] Performed By: #### 1 6570-4, 75837-3, 53444-7, 95067-3, 54176-2, 29060-4, 50512-5, 60421-7 #### [facility] CLIA [id number] [address] [place] [address] [place] Centromere Ab IF Ql (S)on Centromere Ab Qn (S) <0.2 Normal <1.0 [facility] Comment on above: Order Comment: Speci men Type: BLOOD SPECIMEN Ordering Facility: [facility] Address: [address] [place] [address] Result Comment: Anti -centromere antibody is used as in aid in diagnosis of systemic sclerosis. Clinical correlation is required. Test Methodology: Multiplex flow immunoassay. Performed By: #### 1 6570-4, 54175-2, 18561-0, 13345-1, 90864-2, 07079-1, 52114-7, 70577-2 #### [facility] CLIA [id number] [address] [place] [address] CENTROMERE AB QUAL Negative Normal Negative [facility] Comment on above: Order Comment: Speci men Type: BLOOD SPECIMEN Ordering Facility: [facility] Address: [address] [place] [address] Performed By: #### 1 6570-4, 57999-3, 07781-3, 03323-0, 08637-2, 14576-2, 27911-2, 83603-0 #### [facility] CLIA [id number] [address] [place] [address] [place] Chromatin Ab Qnon 01-25-2022 CHROMATIN AB QUAL Negative Normal Negative [facility] Comment on above: Order Comment: Speci men Type: BLOOD SPECIMEN Ordering Facility: [facility] Address: [address] [place] [address] Performed By: #### 1 6570-4, 15064-8, 59315-9, 53513-3, 72399-7, 40092-1, 12005-9, 25422-8 #### [facility] CLIA [id number] [address] [place] Chromatin Ab SerPl-aCncon Chromatin Ab Qn <0.2 Normal <1.0 [facility] Comment on above: Order Comment: Speci men Type: BLOOD SPECIMEN Ordering Facility: [facility] Address: [address] [place] [address] Result Comment: Test Methodology: Multiplex flow immunoassay. Performed By: #### 1 6570-4, 22238-1, 59343-2, 68293-0, 49705-1, 92014-6, 50962-7, 72019-0 #### [facility] CLIA [id number] [address] [place] [address] [place] Comprehensive metabolic 2000 panelon 01-25-2022 Albumin [Mass/Vol] 4.5 g/dL 3.9 - 4.9 g/dL [facility] ALP [Catalytic activity/Vol] 65 U/L 34 - 123 U/L [facility] ALT [Catalytic activity/Vol] 14 U/L 7 - 38 U/L [facility] Anion gap [Moles/Vol] 11 mmol/L 9 - 18 mmol/L [facility] AST [Catalytic activity/Vol] 14 U/L 13 - 35 U/L [facility] Bilirubin [Mass/Vol] 0.3 mg/dL 0.2 - 1 .3 mg/dL [facility] Calcium [Mass/Vol] 9.5 mg/dL 8.5 - 10. 2 mg/dL [facility] Chloride [Moles/Vol] 105 mmol/L 97 - 10 5 mmol/L [facility] CO2 [Moles/Vol] 26 mmol/L 22 - 30 mmol/L [facility] Creatinine [Mass/Vol] 0.71 mg/dL 0.58 - 0.96 mg/dL [facility] Estimated Glomerular Filtration Rate 125 mL/min/1.73m >=60 mL/min/1.7 3m [facility] Glucose [Mass/Vol] 94 mg/dL 74 - 99 mg/dL [facility] Potassium [Moles/Vol] 4.6 mmol/L 3.7 - 5.1 mmol/L [facility] Protein [Mass/Vol] 7.2 g/dL 6.3 - 8.0 g/dL [facility] Sodium [Moles/Vol] 142 mmol/L 136 - 144 mmol/L [facility] Urea nitrogen [Mass/Vol] 8 mg/dL 7 - 21 mg/dL [facility] Albumin [Mass/Vol] 4.5 g/dL Normal 3.9-4.9 [facility] Comment on above: Order Comment: Speci men Type: BLOOD SPECIMEN Ordering Facility: [facility] Address: [address] [place] [address] Performed By: #### 1 6570-4, 95443-2, 20522-1, 75724-3, 06685-2, 09219-7, 79790-2, 11983-2 #### [facility] CLIA [id number] [address] [place] [address] [place] ALP [Catalytic activity/Vol] 65 U/L Normal 34-123 [facility] Comment on above: Order Comment: Speci men Type: BLOOD SPECIMEN Ordering Facility: [facility] Address: [address] [place] [address] Performed By: #### 1 6570-4, 79383-6, 90241-7, 49443-0, 61797-7, 28081-8, 11778-5, 98591-5 #### [facility] CLIA [id number] [address] [place] [address] [place] ALT [Catalytic activity/Vol] 14 U/L Normal 7-38 [facility] Comment on above: Order Comment: Speci men Type: BLOOD SPECIMEN Ordering Facility: [facility] Address: [address] [place] [address] Performed By: #### 1 6570-4, 34357-7, 84557-0, 73970-3, 86686-8, 64872-3, 60538-8, 14635-7 #### [facility] CLIA [id number] [address] [place] [address] [place] Anion gap [Moles/Vol] 11 mmol/L Normal 9-18 [facility] Comment on above: Order Comment: Speci men Type: BLOOD SPECIMEN Ordering Facility: [facility] Address: [address] [place] [address] Performed By: #### 1 6570-4, 96324-9, 35086-9, 86256-3, 89799-4, 83870-3, 89605-9, 90972-5 #### [facility] CLIA [id number] [address] [place] [address] [place] AST [Catalytic activity/Vol] 14 U/L Normal 13-35 [facility] Comment on above: Order Comment: Speci men Type: BLOOD SPECIMEN Ordering Facility: [facility] Address: [address] [place] [address] Performed By: #### 1 6570-4, 37450-4, 85928-7, 78592-1, 00169-8, 81937-6, 16921-2, 16577-5 #### [facility] CLIA [id number] [address] [place] [address] [place] Bilirubin [Mass/Vol] 0.3 mg/dL Normal 0.2-1.3 [facility] Comment on above: Order Comment: Speci men Type: BLOOD SPECIMEN Ordering Facility: [facility] Address: [address] [place] [address] Performed By: #### 1 6570-4, 14709-2, 52521-1, 96815-4, 47154-7, 35128-6, 17262-3, 96946-6 #### [facility] CLIA [id number] [address] [place] [address] [place] Calcium [Mass/Vol] 9.5 mg/dL Normal 8.5-10.2 [facility] Comment on above: Order Comment: Speci men Type: BLOOD SPECIMEN Ordering Facility: [facility] Address: [address] [place] [address] Performed By: #### 1 6570-4, 59224-8, 33329-0, 91849-9, 82007-4, 52077-8, 49961-5, 43228-3 #### [facility] CLIA [id number] [address] [place] [address] [place] Chloride [Moles/Vol] 105 mmol/L Normal 97-105 [facility] Comment on above: Order Comment: Speci men Type: BLOOD SPECIMEN Ordering Facility: [facility] Address: [address] [place] [address] Performed By: #### 1 6570-4, 70139-4, 01288-6, 44504-4, 36690-0, 84086-0, 62938-7, 66083-7 #### [facility] CLIA [id number] [address] [place] [address] [place] CO2 [Moles/Vol] 26 mmol/L Normal 22-30 [facility] Comment on above: Order Comment: Speci men Type: BLOOD SPECIMEN Ordering Facility: [facility] Address: [address] [place] [address] Performed By: #### 1 6570-4, 58788-5, 07902-6, 59754-0, 89546-1, 15944-1, 29758-9, 92117-0 #### [facility] CLIA [id number] [address] [place] [address] [place] Creatinine [Mass/Vol] 0.71 mg/dL Normal 0.58-0.96 [facility] Comment on above: Order Comment: Speci men Type: BLOOD SPECIMEN Ordering Facility: [facility] Address: [address] [place] [address] Performed By: #### 1 6570-4, 79517-4, 22835-0, 73711-6, 81258-1, 21000-9, 31098-2, 43318-4 #### [facility] CLIA [id number] [address] [place] [address] [place] ESTIMATED GLOMERULAR FILTRATION RATE 125 mL/min/1.73m??? Normal >=60 [facility] Comment on above: Order Comment: Jose Carlos oseguera Type: BLOOD SPECIMEN Ordering Facility: [facility] Address: [address] [place] [id number] Result Comment: Francesca mated Glomerular Filtration Rate [...] actual GFR. Performed By: #### 1 6570-4, 31900-1, 71222-5, 25371-4, 52438-5, 15905-9, 00312-1, 93200-2 #### [facility] CLIA [id number] [address] [place] [address] [place] Glucose [Mass/Vol] 94 mg/dL Normal 74-99 [facility] Comment on above: Order Comment: Jose Carlos oseguera Type: BLOOD SPECIMEN Ordering Facility: [facility] Address: [address] [place] [place] [id number] Result Comment: The [place] Diabetes Association (ADA) provides guidance for cutoff [...] Standards of Medical Care in Diabetes 2016, [place] [employer]. Diabetes Care. 2016.39(Suppl 1). Performed By: #### 1 6570-4, 91363-3, 59264-8, 45166-7, 23407-3, 75909-0, 41108-7, 98818-8 #### [facility] CLIA [id number] [address] [place] [address] [place] Potassium [Moles/Vol] 4.6 mmol/L Normal 3.7-5.1 [facility] Comment on above: Order Comment: Speci men Type: BLOOD SPECIMEN Ordering Facility: [facility] Address: [address] [place] [address] Performed By: #### 1 6570-4, 32926-5, 82530-8, 09292-7, 17693-5, 52362-0, 88235-1, 41680-9 #### [facility] CLIA [id number] [address] [place] [address] [place] Protein [Mass/Vol] 7.2 g/dL Normal 6.3-8.0 [facility] Comment on above: Order Comment: Speci men Type: BLOOD SPECIMEN Ordering Facility: [facility] Address: [address] [place] [address] Performed By: #### 1 6570-4, 10641-0, 12710-3, 87806-6, 02536-0, 07806-6, 62058-5, 83325-6 #### [facility] CLIA [id number] [address] [place] [address] [place] Sodium [Moles/Vol] 142 mmol/L Normal 136-144 [facility] Comment on above: Order Comment: Speci men Type: BLOOD SPECIMEN Ordering Facility: [facility] Address: [address] [place], [place] [address] Performed By: #### 1 6570-4, 22157-3, 53259-5, 37983-3, 31902-0, 34605-4, 51508-7, 75890-5 #### [facility] CLIA [id number] [address] [place] [address] [place] Urea nitrogen [Mass/Vol] 8 mg/dL Normal 7-21 [facility] Comment on above: Order Comment: Speci men Type: BLOOD SPECIMEN Ordering Facility: [facility] Address: [address] [place] [address] Performed By: #### 1 6570-4, 09228-6, 60245-1, 91333-8, 86569-6, 44750-6, 85808-3, 03603-1 #### [facility] CLIA [id number] [address] [place] [address] [place] Cyclic citrullinated peptide IgG Qnon 01-25-2022 CCP ANTIBODY IGG QUALITATIVE Negative Normal Negative [facility] Comment on above: Order Comment: Speci men Type: BLOOD SPECIMEN Ordering Facility: [facility] Address: [address] [place] [address] Performed By: #### 1 6570-4, 80949-1, 17600-6, 35663-1, 86933-9, 61787-4, 70606-1, 23607-4 #### [facility] CLIA [id number] [address] [place] [address] [place] JASON Jo1 Ab Ser-aCncon 2021 Yuly-1 extractable nuclear Ab Qn (S) <0.2 Normal <1.0 [facility] Comment on above: Order Comment: Speci men Type: BLOOD SPECIMEN Ordering Facility: [facility] Address: [address] [place] [address] Performed By: #### 1 6570-4, 56622-9, 36346-9, 63641-0, 07857-4, 68605-1, 81398-4, 14571-3 #### [facility] CLIA [id number] [address] [place] [address] [place] JASON CLINICAL TEAM MANAGER Ab Ser-aCncon 2021 Ribonucleoprotein extractable nuclear Ab Qn (S) <0.2 Normal <1.0 [facility] Comment on above: Order Comment: Speci men Type: BLOOD SPECIMEN Ordering Facility: [facility] Address: [address] [place] [address] Performed By: #### 1 6570-4, 46245-1, 98099-8, 90188-3, 80171-4, 51361-7, 13660-4, 68559-5 #### [facility] CLIA [id number] [address] [place] [address] [place] JAS[place] SM IgG Ser-aCncon 2021 Cota extractable nuclear IgG Qn (S) <0.2 Normal <1.0 [facility] Comment on above: Order Comment: Speci men Type: BLOOD SPECIMEN Ordering Facility: [facility] Address: [address] [place] [address] Performed By: #### 1 6570-4, 85565-5, 07532-2, 27203-4, 47171-1, 36030-9, 65201-9, 45230-0 #### [facility] CLIA [id number] [address] [place] [address] [place] SS-A Ab Ser-aCncon 01-25 Sjogrens syndrome-A extractable nuclear Ab Qn (S) <0.2 Normal <1.0 [facility] Comment on above: Order Comment: Speci men Type: BLOOD SPECIMEN Ordering Facility: [facility] Address: [address] [place] [address] Result Comment: Test Methodology: Multiplex flow immunoassay. Performed By: #### 1 6570-4, 48576-2, 39193-4, 06358-9, 56564-9, 24171-7, 33346-0, 32561-9 #### [facility] CLIA [id number] [address] [place] [address] [place] SS-B Ab Ser-aCncon 01-25 Sjogrens syndrome-B extractable nuclear Ab Qn (S) <0.2 Normal <1.0 [facility] Comment on above: Order Comment: Speci men Type: BLOOD SPECIMEN Ordering Facility: [facility] Address: [address] [place] [address] Result Comment: Anti -SSB (anti-La) antibody is used as an aid in diagnosis of a variety of systemic autoimmune diseases, especially for Sjogren's syndrome and systemic lupus erythematosus. Clinical correlation is required. Test Methodology: Multiplex flow immunoassay. Performed By: #### 1 6570-4, 66022-8, 65425-9, 59494-4, 97973-4, 91514-5, 30196-5, 58394-5 #### [facility] CLIA [id number] [address] [place] [address] [place] ESR Westergren method (Bld) [Velocity]on 01-25-2022 ESR (Bld) [Velocity] 2 mm/h 0 - 20 mm/hr [facility] ESR (Bld) [Velocity] 2 mm/h Normal 0-20 [facility] Comment on above: Order Comment: Speci men Type: BLOOD SPECIMEN Ordering Facility: [facility] Address: [address] [place] [address] Performed By: #### 1 6570-4, 88765-3, 82884-1, 13769-6, 58029-1, 79389-9, 44667-0, 97240-8 #### [facility] CLIA [id number] [address] [place] [address] [place] HBV core Ab Ser Qlon 022 HBV core Ab Ql (S) Negative Normal Negative [facility] Comment on above: Order Comment: Speci men Type: BLOOD SPECIMEN Ordering Facility: [facility] Address: [address] [place] [address] Result Comment: No e vidence of current or past infection with Hepatitis B virus. Should recent infection be suspected, repeat testing may be considered 3-4 weeks after this draw. Performed By: #### 1 6570-4, 52699-4, 86384-2, 07175-9, 50586-3, 10899-6, 73927-8, 87238-3 #### [facility] CLIA [id number] [address] [place] [address] HBV surface Ab IA Ql (S)on 0 01-25-2022 HBV surface Ag Ql (S) Negative Normal Negative [facility] Comment on above: Order Comment: Speci men Type: BLOOD SPECIMEN Ordering Facility: [facility] Address: [address] [place] [address] Performed By: #### 1 6570-4, 28103-4, 76830-4, 34275-8, 34938-9, 51369-2, 58045-0, 39727-4 #### [facility] CLIA [id number] [address] [place] [address] HBV surface Ab Ser Qlon - HBV surface Ab Ql (S) Negative Normal Negative [facility] Comment on above: Order Comment: Speci [facility] Type: BLOOD SPECIMEN Ordering Facility: [facility] Address: [address] [place] [address] Result Comment: No e vidence of current or past infection with Hepatitis B virus. Should recent infection be suspected, repeat testing may be considered 3-4 weeks after this draw. Performed By: #### 1 6570-4, 46257-9, 51598-9, 11177-0, 47870-0, 69440-2, 32843-6, 11896-4 #### [facility] CLIA [id number] [address] [place] [address] HCV Ab Ser Qlon 01-25-2022 HCV Ab Ql (S) Negative Normal Negative [facility] Comment on above: Order Comment: Speci [facility] Type: BLOOD SPECIMEN Ordering Facility: [facility] Address: [address] [place] [address] Result Comment: The result suggests no evidence of active infection with Hepatitis C virus. Should recent infection be suspected, repeat testing may be considered 4-6 weeks after this draw. Performed By: #### 1 6570-4, 16488-5, 86537-7, 04645-8, 71064-4, 63756-7, 71610-9, 53834-4 #### [facility] CLIA [id number] [address] [place] [address] [place] Yuly-1 extractable nuclear Ab Qn (S)on 01-25-2022 YULY 1 ANTIBODY QUAL Negative Normal Negative [facility] Comment on above: Order Comment: Horacioi ana rosa Type: BLOOD SPECIMEN Ordering Facility: [facility] Address: [address] [place] [address] Result Comment: Anti -YULY-1 antibody is used as an aid in diagnosis of polymyositis and dermatomyositis especially with pulmonary involvement. A negative result cannot rule out polymyositis or dermatomyositis. Clinical correlation is required. Test Methodology: Multiplex flow immunoassay. Performed By: #### 1 6570-4, 12280-2, 04137-9, 23754-3, 53504-8, 76605-3, 46292-0, 56747-6 #### [facility] [place] [id number] [address] [place] [address] [place] Nuclear Ab IA Ql (S)on 01-25 ARMANI BY EIA, QUAL Negative Normal Negative [facility] Comment on above: Order Comment: Jose Carlos oseguera Type: BLOOD SPECIMEN Ordering Facility: [facility] Address: [address] [place] [address] Result Comment: The qualitative antinuclear antibody screen test performed using enzyme immunoassay including the following antigens: dsDNA, histones, SS-A, SS-B, Sm, Sm/CLINICAL TEAM MANAGER, Scl-70, Uyly-1, and centromeric antigens. Performed By: #### 1 6570-4, 13862-1, 45526-6, 31141-9, 53433-7, 21208-0, 92640-4, 40576-6 #### [facility] CLIA [id number] [address] [place] [address] [place] RHEUMATOID FACTOR BLon 01-25 Rheumatoid factor Qn [IU]/mL <16 IU/mL [facility] Rheumatoid factor Qn [IU]/mL Normal <16 [facility] Comment on above: Order Comment: Speci men Type: BLOOD SPECIMEN Ordering Facility: [facility] Address: [address] [place] [address] Performed By: #### 1 6570-4, 26283-8, 36555-7, 63507-5, 03721-1, 87904-7, 92816-1, 03225-1 #### [facility] CLIA [id number] [address] [place] [address] [place] Ribonucleoprotein extractabl e nuclear Ab Qn (S)on 01-25-2022 ANTI-CLINICAL TEAM MANAGER QUAL Negative Normal Negative [facility] Comment on above: Order Comment: Jose Carlos oseguera Type: BLOOD SPECIMEN Ordering Facility: [facility] Address: [address] [place] [address] Performed By: #### 1 6570-4, 61706-7, 95983-6, 85931-0, 04108-4, 75089-2, 77131-4, 82701-9 #### [facility] CLIA [id number] [address] [place] [address] [place] RIBOSOMAL CLINICAL TEAM MANAGER QUAL Negative Normal Negative [facility] Comment on above: Order Comment: Jose Carlos oseguera Type: BLOOD SPECIMEN Ordering Facility: [facility] Address: [address] [place] [address] Result Comment: Anti -Ribosomal RNA (Ribosomal P) antibody is used as an aid in diagnosis of systemic autoimmune diseases especially systemic lupus erythematosus and mixed connective tissue disease. Cross-reactivity with Anti-cota antibody is not uncommon. Clinical correlation is required. Test Methodology: Multiplex flow immunoassay. Performed By: #### 1 6570-4, 55696-2, 40428-0, 20145-8, 80999-1, 11764-0, 63542-1, 28985-1 #### [facility] CLIA [id number] [address] [place] [address] [place] SCL-70 extractable nuclear I gG IA Qn (S)on 01-25-2022 SCLERODERMA AB QUAL Negative Normal Negative [facility] Comment on above: Order Comment: Speci men Type: BLOOD SPECIMEN Ordering Facility: [facility] Address: [address] [place] [address] Performed By: #### 1 6570-4, 71082-3, 47743-8, 49326-6, 56552-0, 44272-6, 63953-9, 54847-7 #### [facility] CLIA [id number] [address] [place] [address] [place] SCLERODERMA IGG AB <0.2 Normal <1.0 [facility] Comment on above: Order Comment: Speci men Type: BLOOD SPECIMEN Ordering Facility: [facility] Address: [address] [place] [address] Result Comment: Scl- 70/Scleroderma antibody test is used as an aid in diagnosis of systemic sclerosis especially the diffuse cutaneous form. A negative result cannot rule out systemic sclerosis. The final interpretation should consider clinical picture and other test results such as anti-centromere antibody. Test Methodology: Multiplex flow immunoassay. Performed By: #### 1 6570-4, 14424-9, 28511-2, 08514-9, 92970-2, 49448-8, 86559-0, 36530-9 #### [facility] CLIA [id number] [address] [place] [address] [place] Sjogrens syndrome-A extracta ble nuclear Ab Qn (S)on 01-25-2022 SSA ANTIBODY QUAL Negative Normal Negative [facility] Comment on above: Order Comment: Speci men Type: BLOOD SPECIMEN Ordering Facility: [facility] Address: [address] [place], [place] [id number] Performed By: #### 1 6570-4, 63927-4, 63257-2, 59731-0, 89469-3, 63262-5, 70711-5, 31771-8 #### [facility] CLIA [id number] [address] [place] [address] [place] Sjogrens syndrome-B extracta ble nuclear Ab Qn (S)on 01-25-2022 SSB ANTIBODY QUAL Negative Normal Negative [facility] Comment on above: Order Comment: Jose Carlos oseguera Type: BLOOD SPECIMEN Ordering Facility: [facility] Address: [address] [place] [address] Performed By: #### 1 6570-4, 92663-9, 63232-4, 57212-9, 99303-1, 96602-1, 90340-6, 06183-5 #### [facility] CLIA [id number] [address] [place] [address] STATES [facility] Cota extractable nuclear Ig G Qn (S)on 01-25-2022 SM ANTIBODY QUAL Negative Normal Negative [facility] Comment on above: Order Comment: Jose Carlos oseguera Type: BLOOD SPECIMEN Ordering Facility: [facility] Address: [address] [place] [address] Result Comment: Anti -Sm (Cota) antibody is used as an aid in diagnosis of systemic lupus erythematosus and its presence is associated with renal disease. A negative result cannot rule out systemic lupus erythematosus. Clinical correlation is required. Test Methodology: Multiplex flow immunoassay. Performed By: #### 1 6570-4, 36449-0, 84018-3, 32184-4, 64436-1, 66416-0, 68914-4, 07968-0 #### [facility] CLIA [id number] [address] [place] [address] [place] cCP IgG SerPl-aCncon 022 Cyclic citrullinated peptide IgG Qn <15 Normal <20 [facility] Comment on above: Order Comment: Jose Carlos oseguera Type: BLOOD SPECIMEN Ordering Facility: [facility] Address: [address] [place], [place] [address] Performed By: #### 1 6570-4, 91177-5, 61001-2, 96396-4, 03386-4, 95210-6, 46776-5, 16767-5 #### [facility] CLIA [id number] [address] [place] [address] [place] XR ankle LT min 3V*on 2021 XR ankle LT min 3V* [facility] [employer] Other XR ankle LT min 3V* [facility] [employer] Other XR ankle LT min 3V* 1111 [facility] [employer] Other XR ankle LT min 3V* JoseHANNY [address] [employer] Other XR ankle LT min 3V* [facility] [employer] Other XR ankle LT min 3V* [employer] Other XR ankle LT min 3V* Patient: Madyson Schmid MR#: [id number] [employer] Other XR ankle LT min 3V* : 2000 Acct:[id number] [employer] Other XR ankle LT min 3V* Age/Sex: 20 / F ADM Date: 10/10/21 [employer] Other XR ankle LT min 3V* Loc: XDUCLY Room: pe: [facility] [employer] Other XR ankle LT min 3V* Attending Dr: Christina GONZALEZ [employer] Other XR ankle LT min 3V* Ordering Provider: CARLOS Santos [employer] Other XR ankle LT min 3V* Date of Service: 10/10/21 [employer] Other XR ankle LT min 3V* XR/XR ankle LT min 3V*: Acute left ankle pain [employer] Other XR ankle LT min 3V* Copies to: CARLOS Beckman [employer] Other XR ankle LT min 3V* Left ankle 10/10/2021. [employer] Other XR ankle LT min 3V* CLINICAL DATA: Left ankle pain after twisting injury. Assembly Other XR ankle LT min 3V* FINDINGS: 3 views of the left ankle were obtained. Assembly Other XR ankle LT min 3V* No acute fracture or dislocation is identified. No other bony abnormality is seen. Anterolateral Assembly Other XR ankle LT min 3V* soft tissue swelling is noted. Assembly Other XR ankle LT min 3V* X R/XR ankle LT min 3V* Assembly Other XR ankle LT min 3V* IMPRESSION: Soft tis cody swelling. No acute bony abnormality. Assembly Other XR ankle LT min 3V* Impression dictated by: Erick Cueto Jr., M.D.10/10/2021 4:24 PM Assembly Other XR ankle LT min 3V* Dictation Location: [place] [address] Assembly Other XR ankle LT min 3V* Transcribed By: MIRELLA 10/10/21 1624 Assembly Other XR ankle LT min 3V* Dictated By: Erick Cueto Jr, MD 10/10/21 1621 Assembly Other XR ankle LT min 3V* Signed By: Assembly Other XR ankle LT min 3V* 10/10/21 1624 [employer] Other Vital Signs Date Time Vital Sign Value Performing Clinician Facility 10-29-2024 16:23-0500 Body mass index (BMI) [Ratio] 38.27 kg/m2 Pollen Work Phone: [facility] 10-29-2024 16:23-0500 Body weight 104.33 kg Osei Helena DO Work Phone: [facility] 10-29-2024 16:23-0500 Diastolic blood pressure 68 mm[Hg] Osei Helena DO Work Phone: [facility] 10-29-2024 16:23-0500 Systolic blood pressure 112 mm[Hg] Osei Helena DO Work Phone: [facility] 10-15-2024 16:11-0500 Body mass index (BMI) [Ratio] 38.94 kg/m2 Osei Helena DO Work Phone: [facility] 10-15-2024 16:11-0500 Body weight 106.14 kg Osei Helena DO Work Phone: [facility] 10-15-2024 16:11-0500 Diastolic blood pressure 64 mm[Hg] Osei Helena DO Work Phone: [facility] 10-15-2024 16:11-0500 Systolic blood pressure 118 mm[Hg] Osei Helena DO Work Phone: [facility] 10-02-2024 11:43-0500 Body mass index (BMI) [Ratio] 38.44 kg/m2 Osei Helena DO Work Phone: [facility] 10-02-2024 11:43-0500 Body weight 104.78 kg Osei Helena DO Work Phone: [facility] 10-02-2024 11:43-0500 Diastolic blood pressure 72 mm[Hg] Osei Helena DO Work Phone: [facility] 10-02-2024 11:43-0500 Systolic blood pressure 118 mm[Hg] Osei Helena DO Work Phone: [facility] 09-18-2024 10:52-0500 Body mass index (BMI) [Ratio] 38.74 kg/m2 Osei Helena DO Work Phone: [facility] 09-18-2024 10:52-0500 Body weight 105.6 kg Osei Helena DO Work Phone: [facility] 09-18-2024 10:52-0500 Diastolic blood pressure 68 mm[Hg] Osei Helena DO Work Phone: [facility] 09-18-2024 10:52-0500 Systolic blood pressure 118 mm[Hg] Osei Helena DO Work Phone: [facility] 09-03-2024 15:21-0500 Body mass index (BMI) [Ratio] 37.44 kg/m2 Osei Helena DO Work Phone: [facility] 09-03-2024 15:21-0500 Body weight 102.06 kg Osei Helena DO Work Phone: [facility] 09-03-2024 15:21-0500 Diastolic blood pressure 68 mm[Hg] Osei Helena DO Work Phone: [facility] 09-03-2024 15:21-0500 Systolic blood pressure 120 mm[Hg] Osei Helena DO Work Phone: [facility] 08-27-2024 13:08-0500 Body height 165.1 cm Camilla Hemmer PA Work Phone: [facility] 08-27-2024 13:08-0500 Body mass index (BMI) [Ratio] 38.11 kg/m2 Camilla Hemmer PA Work Phone: [facility] 08-27-2024 13:08-0500 Body weight 103.87 kg Camilla Hemmer PA Work Phone: [facility] 08-27-2024 13:08-0500 Diastolic blood pressure 72 mm[Hg] Camilla Hemmer PA Work Phone: [facility] 08-27-2024 13:08-0500 Heart rate 92 /min Camilla Hemmer PA Work Phone: [facility] 08-27-2024 13:08-0500 Respiratory rate 16 /min Camilla Hemmer PA Work Phone: [facility] 08-27-2024 13:08-0500 SaO2% (BldA) [Mass fraction] 98 % Camilla Garcia PA Work Phone: [facility] 08-27-2024 13:08-0500 Systolic blood pressure 118 mm[Hg] Camilla Garcia PA Work Phone: [facility] 08-13-2024 09:22-0500 Body height 165.1 cm Hammad Hatch MD Work Phone: [facility] 08-13-2024 09:22-0500 Body mass index (BMI) [Ratio] 36.91 kg/m2 Hammad Hatch MD Work Phone: [facility] 08-13-2024 09:22-0500 Body weight 100.61 kg Hammad Hatch MD Work Phone: [facility] 08-05-2024 09:05-0500 Body mass index (BMI) [Ratio] 36.44 kg/m2 Flori Louise PA Work Phone: [facility] 08-05-2024 09:05-0500 Body weight 99.34 kg Flori Louise PA Work Phone: [facility] 08-05-2024 09:05-0500 Diastolic blood pressure 68 mm[Hg] Flori Louise PA Work Phone: [facility] 08-05-2024 09:05-0500 Systolic blood pressure 110 mm[Hg] Flori Louise PA Work Phone: [facility] 07-03-2024 14:41-0400 Body mass index (BMI) [Ratio] 35.65 kg/m2 Flori Lavinia PA Work Phone: [facility] 07-03-2024 14:41-0400 Body weight 97.18 kg Flori Lavinia PA Work Phone: [facility] 07-03-2024 14:41-0400 Diastolic blood pressure 64 mm[Hg] Flori Louise PA Work Phone: [facility] 07-03-2024 14:41-0400 Systolic blood pressure 116 mm[Hg] Flori Gil PA Work Phone: [facility] 06-04-2024 15:53-0400 Body mass index (BMI) [Ratio] 35.36 kg/m2 Osei Helena DO Work Phone: [facility] 06-04-2024 15:53-0400 Body weight 96.39 kg Osei Helena DO Work Phone: [facility] 06-04-2024 15:53-0400 Diastolic blood pressure 70 mm[Hg] Osei Helena DO Work Phone: [facility] 06-04-2024 15:53-0400 Systolic blood pressure 126 mm[Hg] Osei Helena DO Work Phone: [facility] 05-23-2024 09:35-0400 Body mass index (BMI) [Ratio] 35.01 kg/m2 Nom Nurse [facility] 05-23-2024 09:35-0400 Body weight 95.44 kg [place] [employer] Nurse [facility] 05-20-2024 09:37-0400 Body height 165.1 cm Camilla Hemmer PA Work Phone: [facility] 05-20-2024 09:37-0400 Body mass index (BMI) [Ratio] 34.98 kg/m2 Camilla Hemmer PA Work Phone: [facility] 05-20-2024 09:37-0400 Body weight 95.35 kg Camilla Hemmer PA Work Phone: [facility] 05-20-2024 09:37-0400 Diastolic blood pressure 76 mm[Hg] Camilla Hemmer PA Work Phone: [facility] 05-20-2024 09:37-0400 Heart rate 87 /min Camilla Hemmer PA Work Phone: [facility] 05-20-2024 09:37-0400 Respiratory rate 16 /min Camilla Hemmer PA Work Phone: [facility] 05-20-2024 09:37-0400 SaO2% (BldA) [Mass fraction] 98 % Camilla Garcia PA Work Phone: [facility] 05-20-2024 09:37-0400 Systolic blood pressure 108 mm[Hg] Camillaslava Segurarosita PA Work Phone: [facility] 11-30-2023 09:33-0500 Body height 165.1 cm Jyoti Gallowayur PA-C Work Phone: [facility] 11-30-2023 09:33-0500 Body weight 92.99 kg Jyoti Noble PA-C Work Phone: [facility] 11-30-2023 09:33-0500 Diastolic blood pressure 79 mm[Hg] Jyoti Noble PA-C Work Phone: [facility] 11-30-2023 09:33-0500 Heart rate 84 /min Jyoti Noble PA-C Work Phone: [facility] 11-30-2023 09:33-0500 SaO2% (BldA) [Mass fraction] 96 % Jyoti Noble PA-C Work Phone: [facility] 11-30-2023 09:33-0500 Systolic blood pressure 118 mm[Hg] Jyoti Noble PA-C Work Phone: [facility] 06-13-2023 12:36-0400 Body height 165.1 cm Ibis Ellis Myra Work Phone: [facility] [place] [address] DO Work Phone: 06-13-2023 12:36-0400 Body mass index (BMI) [Ratio] 33.28 kg/m2 Ibis Rhonda Myra Work Phone: [facility] [place] 600 DO Work Phone: 06-13-2023 12:36-0400 Body surface area Derived from formula 1.98 m2 Ibis Rhonda Myra Work Phone: [facility] [place] 600 DO Work Phone: 06-13-2023 12:36-0400 Body weight 90.72 kg Ibis A Myra Work Phone: [facility] 600 DO Work Phone: 06-13-2023 12:36-0400 Diastolic blood pressure 80 mm[Hg] Ibis A Myra [facility] DO Work Phone: 06-13-2023 12:36-0400 Heart rate 76 /min Ibis A Myra Work Phone: [facility] 600 DO Work Phone: 06-13-2023 12:36-0400 Systolic blood pressure 116 mm[Hg] [facility]bis [facility] DO Work Phone: 06-08-2023 21:50-0400 Diastolic blood pressure 59 mm[Hg] ROOM SERVICE RUNNER-C Ibis Myra Work Phone: [facility] 06-08-2023 21:50-0400 Heart rate 82 /min [employer] SERVICE [employer]NER-C Ibis Myra Work Phone: [facility] 06-08-2023 21:50-0400 Respiratory rate 18 /min [employer] SERVICE [employer]NER[employer] Ibis Myra Work Phone: [facility] 06-08-2023 21:50-0400 SaO2% (BldA) [Mass fraction] 99 % ROOM SERVICE RUNNER-C Ibis Myra Work Phone: [facility] 06-08-2023 21:50-0400 Systolic blood pressure 115 mm[Hg] ROOM SERVICE RUNNER-C Ibis Myra Work Phone: [facility] 06-08-2023 16:35-0400 Body height 165.1 cm ROOM SERVICE RUNNER-C Ibis Myra Work Phone: [facility] 06-08-2023 16:35-0400 Body temperature 97.8 [degF] ROOM SERVICE RUNNER-C Ibis Myra Work Phone: [facility] 06-08-2023 16:35-0400 Body weight 91.6 kg ROOM SERVICE RUNNER-C Ibis Myra Work Phone: [facility] 12-28-2022 15:00-0400 Body weight 89.36 kg Irvin Hanna MD Work Phone: [facility] 12-28-2022 15:00-0400 Diastolic blood pressure 86 mm[Hg] Irvin Hanna MD Work Phone: [facility] 12-28-2022 15:00-0400 Heart rate 79 /min Irvin Hanna MD Work Phone: [facility] 12-28-2022 15:00-0400 Respiratory rate 16 /min Irvin Hanna MD Work Phone: [facility] 12-28-2022 15:00-0400 Systolic blood pressure 119 mm[Hg] Irvin Hanna MD Work Phone: [facility] 10-13-2022 09:35-0500 Body height 165.1 cm Ibis Rhonda ArenasMyra Work Phone: [facility] 320 DO Work Phone: 10-13-2022 09:35-0500 Body mass index (BMI) [Ratio] 33.45 kg/m2 Ibis Rhonda Myra Work Phone: [facility] 320 DO Work Phone: 10-13-2022 09:35-0500 Body surface area Derived from formula 1.98 m2 Ibis Rhonda Myra Work Phone: [facility] 320 DO Work Phone: 10-13-2022 09:35-0500 Body weight 91.17 kg Ibis Rhonda Myra Work Phone: [facility] 320 DO Work Phone: 10-13-2022 09:35-0500 Diastolic blood pressure 70 mm[Hg] Ibis A Myra Work Phone: [facility] 320 DO Work Phone: 10-13-2022 09:35-0500 Heart rate 76 /min Ibis A Myra Work Phone: [facility] 320 DO Work Phone: 10-13-2022 09:35-0500 Systolic blood pressure 102 mm[Hg] Ibis A Myra Work Phone: [facility] 320 DO Work Phone: 09-11-2022 09:58-0500 Diastolic blood pressure 82 mm[Hg] Ibis A Myra Work Phone: [facility] 250 DO Work Phone: 09-11-2022 09:58-0500 Diastolic blood pressure 80 mm[Hg] Ibis A Myra Work Phone: [facility] 250 DO Work Phone: 09-11-2022 09:58-0500 Systolic blood pressure 112 mm[Hg] Ibis A Myra Work Phone: [facility] 250 DO Work Phone: 09-11-2022 09:58-0500 Systolic blood pressure 108 mm[Hg] Ibis A Myra Work Phone: [facility] 250 DO Work Phone: 09-11-2022 08:57-0500 Body height 165.1 cm Ibis A Myra Work Phone: [facility] 250 DO Work Phone: 09-11-2022 08:57-0500 Body mass index (BMI) [Ratio] 32.95 kg/m2 Ibis A Myra Work Phone: [facility] 250 DO Work Phone: 09-11-2022 08:57-0500 Body surface area Derived from formula 1.97 m2 Ibis A Myra Work Phone: [facility] 250 DO Work Phone: 09-11-2022 08:57-0500 Body weight 89.81 kg Ibis A Myra Work Phone: [facility] 250 DO Work Phone: 09-11-2022 08:57-0500 Diastolic blood pressure 68 mm[Hg] Ibis A Myra Work Phone: [facility] 250 DO Work Phone: 09-11-2022 08:57-0500 Heart rate 74 /min Ibis Rhonda Myra Work Phone: [facility] 250 DO Work Phone: 09-11-2022 08:57-0500 Systolic blood pressure 102 mm[Hg] Ibis A Myra Work Phone: [facility] 250 DO Work Phone: 07-31-2022 10:14-0500 Body weight 89.81 kg Irvin Hanna MD Work Phone: [facility] 07-31-2022 10:14-0500 Diastolic blood pressure 71 mm[Hg] Irvin Hanna MD Work Phone: [facility] 07-31-2022 10:14-0500 Heart rate 92 /min Irvin Hanna MD Work Phone: [facility] 07-31-2022 10:14-0500 Systolic blood pressure 109 mm[Hg] Irvin Hanna MD Work Phone: [facility] 07-21-2022 07:27-0400 Body height 165.1 cm Ibis A Myra Work Phone: [facility] 320 DO Work Phone: 07-21-2022 07:27-0400 Body mass index (BMI) [Ratio] 33.45 kg/m2 Ibis A Myra Work Phone: [facility] 320 DO Work Phone: 07-21-2022 07:27-0400 Body surface area Derived from formula 1.98 m2 Ibis A Ymra Work Phone: [facility] 320 DO Work Phone: 07-21-2022 07:27-0400 Body weight 91.17 kg Ibis A Myra Work Phone: [facility] 320 DO Work Phone: 07-21-2022 07:27-0400 Diastolic blood pressure 72 mm[Hg] Ibis A Myra Work Phone: [facility] 320 DO Work Phone: 07-21-2022 07:27-0400 Heart rate 64 /min Ibis A Myra Work Phone: [facility] 320 DO Work Phone: 07-21-2022 07:27-0400 Systolic blood pressure 106 mm[Hg] Ibis A Myra Work Phone: [facility] 320 DO Work Phone: 07-10-2022 10:45-0400 Body height 165.1 cm Ibis A Myra Work Phone: [facility] 250 DO Work Phone: 07-10-2022 10:45-0400 Body mass index (BMI) [Ratio] 32.95 kg/m2 Ibis A Myra Work Phone: [facility] 250 DO Work Phone: 07-10-2022 10:45-0400 Body surface area Derived from formula 1.97 m2 Ibis A Myra Work Phone: [facility] 250 DO Work Phone: 07-10-2022 10:45-0400 Body weight 89.81 kg Ibis A Myra Work Phone: [facility] 250 DO Work Phone: 07-10-2022 10:45-0400 Diastolic blood pressure 70 mm[Hg] Ibis A Myra Work Phone: [facility] 250 DO Work Phone: 07-10-2022 10:45-0400 Heart rate 76 /min Ibis A Myra Work Phone: [facility] 250 DO Work Phone: 07-10-2022 10:45-0400 Systolic blood pressure 104 mm[Hg] Ibis A Myra Work Phone: [facility] 250 DO Work Phone: 06-01-2022 11:36-0400 Body height 165.1 cm ROOM SERVICE RUNNER-C Ibis Myra Work Phone: [facility] 06-01-2022 11:36-0400 Body temperature 100 [degF] ROOM SERVICE RUNNER-C Ibis Myra Work Phone: [facility] 06-01-2022 11:36-0400 Body weight 88.4 kg ROOM SERVICE RUNNER-C Ibis Myra Work Phone: [facility] 06-01-2022 11:36-0400 Diastolic blood pressure 68 mm[Hg] ROOM SERVICE RUNNER-C Ibis Myra Work Phone: [facility] 06-01-2022 11:36-0400 Heart rate 99 /min ROOM SERVICE RUNNER-C Ibis Myra Work Phone: [facility] 06-01-2022 11:36-0400 Respiratory rate 18 /min ROOM SERVICE RUNNER-C Ibis Myra Work Phone: [facility] 06-01-2022 11:36-0400 SaO2% (BldA) [Mass fraction] 97 % ROOM SERVICE RUNNER-C Ibis Myra Work Phone: [facility] 06-01-2022 11:36-0400 Systolic blood pressure 121 mm[Hg] ROOM SERVICE RUNNER-C Ibis Myra Work Phone: [facility] 05-18-2022 09:42-0400 Body height 165.1 cm Ibis A Myra Work Phone: [facility] 250 DO Work Phone: 05-18-2022 09:42-0400 Body mass index (BMI) [Ratio] 31.95 kg/m2 Ibis A Myra Work Phone: [facility] 250 DO Work Phone: 05-18-2022 09:42-0400 Body surface area Derived from formula 1.94 m2 Ibis A Myra Work Phone: [facility] 250 DO Work Phone: 05-18-2022 09:42-0400 Body weight 87.09 kg Ibis A Myra Work Phone: [facility] 250 DO Work Phone: 05-18-2022 09:42-0400 Diastolic blood pressure 74 mm[Hg] Ibis A Myra Work Phone: [facility] 250 DO Work Phone: 05-18-2022 09:42-0400 Heart rate 72 /min Ibis A Myra Work Phone: [facility] 250 DO Work Phone: 05-18-2022 09:42-0400 Systolic blood pressure 102 mm[Hg] Ibis A Myra Work Phone: [facility] 250 DO Work Phone: 03-23-2022 09:11-0400 Diastolic blood pressure 80 mm[Hg] Ibis A Myra Work Phone: [facility] 250 DO Work Phone: 03-23-2022 09:11-0400 Systolic blood pressure 110 mm[Hg] Ibis A Myra Work Phone: [facility] 250 DO Work Phone: 03-23-2022 09:06-0400 Body height 166.37 cm Ibis A Myra Work Phone: [facility] 250 DO Work Phone: 03-23-2022 09:06-0400 Body mass index (BMI) [Ratio] 31.3 kg/m2 Ibis A Myra Work Phone: [facility] 250 DO Work Phone: 03-23-2022 09:06-0400 Body surface area Derived from formula 1.95 m2 Ibis A Myra Work Phone: [facility] 250 DO Work Phone: 03-23-2022 09:06-0400 Body weight 86.64 kg Ibis A Myra Work Phone: [facility] 250 DO Work Phone: 03-23-2022 09:06-0400 Diastolic blood pressure 76 mm[Hg] Ibis A Myra Work Phone: [facility] 250 DO Work Phone: 03-23-2022 09:06-0400 Heart rate 66 /min Ibis Arenasncer Work Phone: [facility] 250 DO Work Phone: 03-23-2022 09:06-0400 Systolic blood pressure 118 mm[Hg] Ibis Arenasncer Work Phone: [facility] 250 DO Work Phone: 01-25-2022 08:16-0400 Body height 165.1 cm Irvin Hanna MD Work Phone: [facility] 01-25-2022 08:16-0400 Body weight 86.36 kg Irvin Hanna MD Work Phone: [facility] 01-25-2022 08:16-0400 Diastolic blood pressure 83 mm[Hg] Irvin Hanna MD Work Phone: [facility] 01-25-2022 08:16-0400 Heart rate 71 /min Irvin Hanna MD Work Phone: [facility] 01-25-2022 08:16-0400 Systolic blood pressure 116 mm[Hg] Irvin Hanna MD Work Phone: [facility] 01-10-2022 12:45-0400 Body height 165.1 cm Ok Mckeon Other [employer] [facility] [employer] Other 01-10-2022 12:45-0400 Body mass index (BMI) [Ratio] 31.61 kg/m2 Ok Mckeon Other [employer] Other 01-10-2022 12:45-0400 Body temperature 97.8 [degF] Ok Mckeon Other [employer] Other 01-10-2022 12:45-0400 Body weight 86.18 kg Ok Mckeon Other [employer] Other 01-10-2022 12:45-0400 Diastolic blood pressure 80 mm[Hg] Ok Mckeon Other [employer] Other 01-10-2022 12:45-0400 SaO2% (BldA) [Mass fraction] 96 % Ok Mckeon Other [employer] Other 01-10-2022 12:45-0400 Systolic blood pressure 120 mm[Hg] Ok Mckeon Other [employer] Other 10-10-2021 15:50-0500 Body height 165.1 cm Christina Pearce Other [employer] Other 10-10-2021 15:50-0500 Body mass index (BMI) [Ratio] 31.61 kg/m2 Christina Pearce Other [employer] Other 10-10-2021 15:50-0500 Body temperature 97 [degF] Christina Pearce Other [employer] Other 10-10-2021 15:50-0500 Body weight 86.18 kg Christina Pearce Other [employer] Other 10-10-2021 15:50-0500 Diastolic blood pressure 76 mm[Hg] Christina Lambmond Other [employer] Other 10-10-2021 15:50-0500 Respiratory rate 18 /min Christina Lambmond Other [employer] Other 10-10-2021 15:50-0500 SaO2% (BldA) [Mass fraction] 99 % Christina Pearce Other [employer] Other 10-10-2021 15:50-0500 Systolic blood pressure 123 mm[Hg] Christina Pearce Other [employer] Other Encounters Encounter Date Encounter Type Care Provider Facility Start: 11-07-2024 End: 11-07-2024 Clinisync Result Encounter Osei Helena DO Work Phone: [facility] External Department Unsolicited Start: 11-07-2024 End: 11-07-2024 Clinisync Result Encounter Osei Helena DO Work Phone: [facility] External Department Unsolicited Start: 11-06-2024 End: 11-06-2024 Clinisync Result Encounter Generic External Data Provider [facility] External Department Unsolicited Start: 11-06-2024 End: 11-06-2024 Clinisync Result Encounter Generic External Data Provider [...] Only Roshni Jo RN [facility] Comment on above: Dichorionic diamniot ic twin in third trimester (Primary Dx) Start: 10-16-2024 End: 10-16-2024 ambulatory OSEI R [facility] Start: 10-15-2024 End: 10-15-2024 flow sheet [...] unspecified Start: 09-25-2024 End: 09-25-2024 ambulatory Osei Malik [facility] Work Phone: Start: 09-25-2024 End: 09-25-2024 Departed Referred Osei Sidhuo DO Work Phone: [facility] Start: [...] Willis [facility] Comment on above: Dichorionic diamniot [...] Start: 09-02-2024 End: 09-02-2024 ambulatory JYOTI DICKEY Facility:[facility] Comment on above: POTS (postural [...] encounter Marycarmen Kennedy RN [facility] Start: 08-27-2024 End: 08-27-2024 Bamboo [...] Only Sammi Green RN [facility] Comment on above: Dichorionic diamniot ic twin in second trimester (Primary Dx); POTS (postural orthostatic tachycardia syndrome); Asthma during ; 20 weeks gestation of Start: 08-13-2024 End: 08-13-2024 Office outpatient new 45 minutes Muna Lenz MD Work Phone: [facility] Comment on above: Dichorionic diamniot ic twin in second trimester (Primary Dx); POTS (postural orthostatic tachycardia syndrome); Asthma during ; 20 weeks gestation of Start: 08-13-2024 End: 08-13-2024 ambulatory [facility] Start: 08-11-2024 End: 08-13-2024 Clinisync Result Encounter [...] Start: 07-24-2024 End: 07-24-2024 ambulatory Celeste Watson [facility] Start: 07-07-2024 End: 07-07-2024 Chart abstracting Hammad Hatch MD Work Phone: Maternal- Medicine at [facility] Start: 07-03-2024 End: 07-03-2024 flow [...] Start: 07-02-2024 End: 07-02-2024 ambulatory Joie Seaman APRN.BRAKE LINING FINISHER Work Phone: Neurology Comment on above: POTS (postural ortho static tachycardia syndrome) (Primary Dx); Near syncope Start: 07-02-2024 End: 07-02-2024 Telemedicine consultation with patient Joie Seaman APRN.BRAKE LINING FINISHER Work Phone: Neurology Start: 06-10-2024 End: 06-11-2024 [...] 8w6d Start: 05-23-2024 End: 05-23-2024 ambulatory OSEI MALIK Not Available Start: 05-20-2024 End: 05-20-2024 Bamboo flowsheet Camilla Garcia PA Work Phone: [facility] Start: 05-20-2024 End: 05-20-2024 Bamboo flowsheet Camilla Jessica Radha PA Work Phone: [facility] Start: 05-20-2024 End: 05-20-2024 Office outpatient visit 15 minutes Camilla TOLBERT Work Phone: [facility] Comment on above: Pain of left sacroil iac joint (Primary Dx) Start: 05-20-2024 End: 05-20-2024 ambulatory CAMILLA GARCIA Not Available Start: 04-12-2024 End: 04-12-2024 ambulatory Celeste Watson Facility[facility] Start: 04-12-2024 End: 04-12-2024 Patient encounter procedure Celeste Shirley [facility] Start: 03-25-2024 Patient encounter status Camilla TOLBERT Work Phone: [facility] Start: 03-25-2024 End: 03-25-2024 ambulatory RUGEN Jessica NAZIA Not Available Start: 03-20-2024 End: 03-20-2024 ambulatory Jyoti Noble PA-C Work Phone: Neurology Comment on above: POTS (postural ortho static tachycardia syndrome) (Primary Dx) Start: 03-20-2024 End: 03-20-2024 Telemedicine consultation with patient Jyoti Noble PA-C Work Phone: Neurology Start: 03-14-2024 End: 03-14-2024 ambulatory Celeste Watson Facility:[facility] Start: 03-14-2024 End: 03-14-2024 Patient encounter procedure Celeste a[facility]tson [facility] Start: 02-26-2024 End: 02-26-2024 ambulatory RUGEN M NAZIA Not Available Start: 01-22-2024 ambulatory SEAM PRESSER Krista L Mae Facil ity:[facility] Start: 01-01-2024 End: 01-01-2024 ambulatory CELESTE WATSON Not Available Start: 12-21-2023 End: 12-21-2023 ambulatory OSEI MALIK Not Available Start: 12-11-2023 End: 12-11-2023 ambulatory SEAM PRESSER Krista L Mae Facility:[facility] Neena Start: 12-11-2023 End: 12-11-2023 ambulatory CELESTE WATSON Not Available Start: 11-30-2023 End: 11-30-2023 ambulatory AURORA SANTIAGO Facility:[facility] Start: 11-30-2023 End: 11-30-2023 Patient encounter procedure Jyoti Dickey PA-C Work Phone: Neurology Comment on above: POTS (postural ortho static tachycardia syndrome) (Primary Dx) Start: 11-12-2023 End: 11-12-2023 Patient encounter procedure Autonomic 2 Neur Main [facility] Start: 11-12-2023 End: 11-12-2023 ambulatory AURORA SANTIAGO Neurology Comment on above: Procedure Start: 10-10-2023 End: 10-10-2023 ambulatory AURORA SANTIAGO Facility:[facility] Start: 07-24-2023 End: 07-24-2023 ambulatory Jocelin FELIX Facility:[facility] Start: 07-20-2023 Telephone encounter Arin Tinajero RN [facility] Comment on above: Referral Follow-up Start: 07-10-2023 End: 07-10-2023 ambulatory JOSE ARMANDO GREY Facility:[facility] Start: 07-10-2023 End: 07-10-2023 Office outpatient new 30 minutes Jose Armando Grey DO Work Phone: [facility] [place] Comment on above: Chronic pain of righ t knee (Primary Dx); Tendinopathy of gluteal region Start: 07-06-2023 Orders Only Jose Armando Grey DO Work Phone: Orthopaedics Comment on above: Right knee pain, uns pecified chronicity (Primary Dx) Start: 07-05-2023 End: 07-05-2023 ambulatory ROOM SERVICE RUNNER-C Ibis Maggy Myra Work Phone: [facility] Work Phone: Start: 07-05-2023 End: 07-05-2023 Patient encounter procedure ROOM SERVICE RUNNER-C Ibis Myra Work Phone: [facility]-Flu Vaccine Start: 06-13-2023 Office outpatient vi sit 15 minutes Ibis A Myra Work Phone: -[facility] 600 DO Work Phone: Start: 06-13-2023 ambulatory Tabatha Burkburnett Facility:1 [id number] Start: 06-08-2023 End: 06-08-2023 Emergency department patient visit ROOM SERVICE RUNNER-C Ibis Arenasncer Work Phone: [facility]-Emergency Room Work Phone: Start: 04-25-2023 End: 04-25-2023 ambulatory ROOM SERVICE RUNNER-C Ibis Maggy Myra Work Phone: [facility] Work Phone: Start: 04-25-2023 End: 04-25-2023 Departed Referred ROOM SERVICE RUNNER-C Ibis Myra Work Phone: [facility] [address] Work Phone: Start: 03-14-2023 ambulatory CHAN MUÑIZ Fa cility:[facility] Start: 01-18-2023 End: 01-18-2023 ambulatory ROOM SERVICE RUNNER-C Ibis Maggy Myra Work Phone: [facility] Work Phone: Start: 01-18-2023 End: 01-18-2023 Departed Referred ROOM SERVICE RUNNER-C Ibis Myra Work Phone: [facility] [address] Work Phone: Start: 12-28-2022 End: 12-28-2022 Patient encounter procedure Irvin Hanna MD Work Phone: Rheumatology Comment on above: Pain and swelling of knee, right (Primary Dx); Joint stiffness Start: 10-31-2022 Chart Update Ibis Ellis Spen cer Work Phone: -[facility] 250 DO Work Phone: Start: 10-16-[address] Melodie Alfonso ty:[id number] Start: 10-13-2022 Current tobacco non- user cad cap copd pv dm Ibis A Myra Work Phone: -[facility] 320 DO Work Phone: Start: 10-13-[address] Annalee Pierre acility: Start: 09-11-2022 Office outpatient vi sit 15 minutes Ibis A Myra Work Phone: [facility] 250 DO Work Phone: Start: 09-11-2022 Patient encounter procedure Ibis Rhonda Myra Work Phone: [facility] 250 DO Work Phone: Start: 09-11-[address] Melodie Alfonso ty: Start: 09-07-2022 Telephone encounter Ibis Rhonda Myra Work Phone: [facility] 320 DO Work Phone: Start: 08-27-[address] Annalee Pierre acility: Start: 08-01-2022 AUDIT Ibis Rhonda Spen cer Work Phone: [facility] 320 DO Work Phone: Start: 07-31-2022 EVENT EZEKIEL, Provider : HERIBERTO SERRANO FIRST LINE PRODUCTION SUPERVISOR 1,[id number], Status: Pen, Time: 11:00 AM Ibis A Myra Work Phone: [facility] 250 DO Work Phone: Start: 07-31-[address] Annalee Pierre acility: Start: 07-31-2022 End: 07-31-2022 Patient encounter procedure Irvin Hanna MD Work Phone: Rheumatology Comment on above: Pain and swelling of knee, right (Primary Dx); Joint stiffness; Inflammatory arthritis Start: 07-26-2022 ambulatory IBIS RENTERIA Facilit y:[facility] Start: 07-21-2022 Current tobacco non- user cad cap copd pv dm Ibis A Myra Work Phone: [facility] 320 DO Work Phone: Start: 07-21-[address] Annalee Maza F acility: Start: 07-10-2022 Office outpatient vi sit 25 minutes Ibis A Ymra Work Phone: [facility] 250 DO Work Phone: Start: 07-10-2022 Patient encounter procedure Ibis Renteria Work Phone: [facility] 250 DO Work Phone: Start: 07-10-[address] Melodie Greeni ty: Start: 06-15-2022 Telephone encounter Ibis Arenasncer Work Phone: [facility] 250 DO Work Phone: Start: 06-12-2022 End: 06-12-[address] Annalee Maza Facility:[id number] Start: 06-05-2022 Patient encounter procedure Ibis Renteria Work Phone: [id number] [place] [facility] Work Phone: Start: 06-01-2022 End: 06-01-2022 Emergency department patient visit ROOM SERVICE RUNNER-C Ibis Renteria Work Phone: [facility]-Emergency Room Start: 05-18-2022 Office outpatient vi sit 25 minutes Ibis A Myra Work Phone: [facility] 250 DO Work Phone: Start: 05-18-2022 Patient encounter procedure Ibis A Myra Work Phone: [facility] 250 DO Work Phone: Start: 05-08-2022 End: 05-08-2022 Patient encounter procedure ROOM SERVICE RUNNER-C Ibis Myra Work Phone: [facility]-Respiratory Therapy Start: 05-03-2022 Result Review Ibis A Spen cer Work Phone: [facility] 250 DO Work Phone: Start: 05-03-2022 SURGNONUH, Provider: María Elena Freire, Status: Pen, Time: 10:00 AM Ibis A Myra Work Phone: [facility] 250 DO Work Phone: Start: 05-03-2022 End: 05-03-2022 Patient encounter procedure ROOM SERVICE RUNNER-C Ibis Myra Work Phone: [facility] Start: 03-28-2022 EVENT EZEKIEL, Provider : HERIBERTO SINGH FIRST LINE PRODUCTION SUPERVISOR 1,[id number], Status: Pen, Time: 8:00 AM Ibis A Myra Work Phone: [facility] 250 DO Work Phone: Start: 03-28-2022 Patient encounter procedure Ibis A Myra Work Phone: [facility] 250 DO Work Phone: Start: 03-26-2022 Chart Update Ibis A Spen cer Work Phone: [facility] 250 DO Work Phone: Start: 03-24-2022 End: 03-24-2022 Patient encounter procedure ROOM SERVICE RUNNER-C Ibis Renteria Work Phone: [facility]-Lab Main Capac Start: 03-23-2022 Office consultation new/estab patient 60 min Ibiseren Limer Work Phone: [facility] 250 DO Work Phone: Start: 03-23-2022 Office outpatient ne w 45 minutes Ibisnhiarika Limer Work Phone: [facility] Work Phone: Start: 02-02-2022 Telephone encounter Irvin shannon MD Work Phone: Rheumatology Comment on above: Orders Start: 01-25-2022 End: 01-25-2022 Patient encounter procedure Irvin Hanna MD Work Phone: Rheumatology Comment on above: Pain and swelling of knee, right (Primary Dx); Joint stiffness Start: 01-10-2022 End: 01-10-2022 ambulatory Ok Mckeon Other Assembly Other Start: 01-10-2022 Office outpatient ne w 45 minutes Ok Mckeon [facility] Vascular Surgery Start: 10-10-2021 End: 10-10-2021 ambulatory Christina Pearce Other Assembly Other Start: 10-10-2021 Office outpatient vi sit 15 minutes Christina Pearce [facility] [place] Procedures Date Procedure Procedure Detail Performing Clinician Start: 11-07-2024 ALL CBC WITH AUTO DIFF Generic External Data Provider Start: 11-06-2024 US OB BPP W NON-STRESS Generic External Data Provider Start: 10-30-2024 US OB BPP W NON-STRESS Generic External Data Provider Start: 10-29-2024 Urnls dip stick/tabl et rgnt non-auto w/o micrscp Osei Helena DO Work Phone: Start: 10-27-2024 ECG 12-LEAD Osei Fazi o DO Work Phone: Start: 10-27-2024 Ct angiography chest w/contrast/noncontrast Osei Helena DO Work Phone: Start: 10-27-2024 [facility] UA (CLEAN/CATCH) CORE WORKER/MICRO IF IND. Osei Helena DO Work Phone: Start: 10-23-2024 US OB BPP W NON-STRESS Generic External Data Provider Start: 10-15-2024 Urnls dip stick/tabl et rgnt non-auto w/o micrscp Osei Helena DO Work Phone: Start: 10-02-2024 Urnls dip stick/tabl et rgnt non-auto w/o micrscp Osei Helena DO Work Phone: Start: 09-25-2024 [facility] UA (CLEAN/CATCH) CORE WORKER/MICRO IF IND. Osei Helena DO Work Phone: [...] preg uterus after 1st trimest / gestation Osei Helena DO Work Phone: Start: 08-11-2024 AFP, SERUM, OPEN SPI NA BIFIDA Flori TOLBERT Work Phone: Start: 08-05-2024 RECURRENT VAGINITIS (HTRX) Flori TOLBERT Work Phone: Start: 08-05-2024 Urnls dip stick/tabl et rgnt non-auto w/o micrscp Flori OTLBERT Work Phone: Start: 08-05-2024 IGP,APTIMA HPV,AGE GDLN [...] Osei Helena DO Work Phone: Start: 07-10-2023 [facility] Pr ovider Historical Start: 06-08-2023 Plain chest X-ray ROOM SERVICE RUNNER-C Ibis Renteria Work Phone: Start: 01-18-2023 Plain chest X-ray ROOM SERVICE RUNNER-C Ibis Renteria Work Phone: Start: 05-03-2022 Plain chest X-ray ROOM SERVICE RUNNER-C Ibis Renteria Work Phone: Start: 08-05-2021 Arthroscopy of knee Lorna nikole Shirley Arthroscopy of knee Ibis Limer Work Phone: Cryotherapy of warts Rajeev tawana Watson Extraction of wisdom tooth Ibis Limer Work Phone: SARS-CoV-2, Influenz a & RSV (PCR) ROOM SERVICE RUNNER-C Ibis Limer Work Phone: Tonsillectomy and adenoidectomy Ibis Limer Work Phone: Tonsillectomy and adenoidectomy Celeste Watson NEGATED: Highlighted row has not occurred! Total colonoscopy Ibis Arenasncer Work Phone: Plan of Treatment Date Care Activity Detail Author Start: 03-25-2034 DTaP,Tdap and Td Vac cines (8 - Td or Tdap) DTaP,Tdap and Td Vaccines (8 - Td or Tdap) [employer] Start: 03-25-2034 Urine microalbumin profile DTaP,Tdap,Td Vaccine (8 - Td or Tdap) [facility] Start: 08-05-2027 Screening for malign ant neoplasm of cervix Pap Smear [employer] Start: 10-17-2025 End: 10-17-2025 US MFM with or without consult US MFM with or without consult Imaging Routine Dichorionic diamniotic twin in third trimester Expected: 10/17/2025 (Approximate), Expires: 10/17/2025 [employer] Work Phone: Comment on above: Expected: 10/17/2025 (Approximate), Expires: 10/17/2025 Start: 09-19-2025 End: 09-19-2025 US MFM with or without consult US MFM with or without consult Imaging Routine Dichorionic diamniotic twin in second trimester Expected: 09/19/2025 (Approximate), Expires: 09/19/2025 [employer] Work Phone: Comment on above: Expected: 09/19/2025 (Approximate), Expires: 09/19/2025 Start: 08-15-2025 End: 08-15-2025 US MFM with or without consult US MFM with or without consult Imaging Routine Dichorionic diamniotic twin in second trimester POTS (postural orthostatic tachycardia syndrome) Asthma during 20 weeks gestation of Expected: 08/15/2025 (Approximate), Expires: 08/15/2025 [employer] Work Phone: Comment on above: Expected: 08/15/2025 (Approximate), Expires: 08/15/2025 Start: 08-13-2025 Adult BMI Screening Adult BMI Screen ing [facility] Start: 08-13-2025 Tobacco Screening Tobacco Screening [facility] Start: 11-12-2024 End: 11-12-2024 Patient encounter procedure 11/12/2024 9:30 AM EST Appointment [facility] [address] [place] [phone] [facility] Start: 11-10-2024 End: 11-10-2024 Patient encounter procedure 11/10/2024 9:00 AM EST Routine [facility] [address] [place] [id number] Osei Malik, [address] [place] [address] [facility] Start: 10-29-2024 End: 10-29-2024 Patient encounter procedure [facility] Comment on above: Arrived Start: 10-16-2024 End: 10-16-2024 Patient encounter procedure 10/16/2024 1:00 PM EST Appointment [facility] [address] [place] [phone] [facility] Start: 10-15-2024 End: 10-15-2024 Patient encounter procedure [facility] Comment on above: Arrived Start: 10-15-2024 End: 10-15-2025 US biophysical profile w non stress test US biophysical profile w non stress test Imaging Routine Dichorionic diamniotic twin in second trimester Expected: 10/15/2024 (Approximate), Expires: 10/15/2025 [facility] Work Phone: Comment on above: Expected: 10/15/2024 (Approximate), Expires: 10/15/2025 Start: 10-02-2024 End: 10-02-2024 Patient encounter procedure 10/02/2024 11:00 AM EST Routine [facility] [address] [place] [address] Osei Malik DO [address] [place] [address] [facility] Start: 09-25-2024 Urine culture [facility] Start: 09-25-2024 Bacteria identified in Urine by Culture Urine Culture [facility] Start: 09-23-2024 End: 09-23-2024 Patient encounter procedure 09/23/2024 1:00 PM EST Appointment [facility] - Ultrasound [address] [place] [phone] [facility] - Ultrasound Start: 09-19-2024 End: 09-19-2024 Patient encounter procedure 09/19/2024 9:30 AM EST Appointment [facility] [address] [place] [address] [facility] Start: 09-18-2024 End: 09-18-2024 Patient encounter procedure [facility] Comment on above: Arrived Start: 09-03-2024 End: 09-03-2024 Patient encounter procedure [facility] Comment on above: Arrived Start: 09-02-2024 End: 09-02-2024 ambulatory 09/02/2024 12:15 PM EST [facility] [address] [place] [address] Jyoti Dickey PA-C [address] [place] [address] F/u Neurology Comment on above: F/u Start: 09-02-2024 End: 09-02-2024 ambulatory 09/02/2024 10:45 AM EST [facility] [address] [place] [address] Jyoti Dickey PA-C [address] [place] [address] F/u Neurology Comment on above: F/u Start: 08-27-2024 End: 08-27-2024 Patient encounter procedure 08/27/2024 1:00 PM EST Office Visit [facility] [address] [facility] [address] [place] [address] Camilla Garcia PA [address] [place] [address] [place] [address] Arrived [facility] Comment on above: Arrived Start: 08-13-2024 End: 08-13-2024 Patient encounter procedure [facility] Start: 08-05-2024 End: 02-02-2025 Alpha fetoprotein, maternal Alpha fetoprotein, maternal Lab Routine Second trimester Expected: 08/05/2024 (Approximate), Expires: 02/02/2025 [facility] Comment on above: Expected: 08/05/2024 (Approximate), Expires: 02/02/2025 Start: 08-05-2024 End: 08-05-2024 Patient encounter procedure 08/05/2024 8:50 AM EST Routine [facility] [address] [facility] [place] [address] Osei Malik DO [address] [facility] [place] [address] [facility] Start: 07-03-2024 End: 07-03-2024 Patient encounter procedure [facility] Comment on above: Arrived Start: 06-04-2024 End: 06-04-2024 Patient encounter procedure [facility] Comment on above: Arrived Start: 05-25-2024 Covid-19 Vaccine ( season) Covid-19 Vaccine ( season) [facility] Start: 05-25-2024 Covid-19 Vaccine ( season) Covid-19 Vaccine ( season) [facility] Start: 05-25-2024 Influenza vaccination C [facility] Start: 05-23-2024 End: 05-23-2025 ABO/Rh ABO/Rh Lab Routine Missed menses Expected: 05/23/2024 (Approximate), Expires: 05/23/2025 [facility] Healthcare Comment on above: Expected: 05/23/2024 (Approximate), Expires: 05/23/2025 Start: 05-23-2024 End: 05-23-2025 Blood type and Indirect antibody screen panel - Blood Type and screen Lab Routine Missed menses Expected: 05/23/2024 (Approximate), Expires: 05/23/2025 [facility] Healthcare Work Phone: Comment on above: Expected: 05/23/2024 (Approximate), Expires: 05/23/2025 Start: 05-23-2024 End: 05-23-2025 US Pelvis transvaginal US OB transvaginal Imaging Routine Missed menses Expected: 05/23/2024 (Approximate), Expires: 05/23/2025 [facility] Healthcare Comment on above: Expected: 05/23/2024 (Approximate), Expires: 05/23/2025 Start: 05-23-2024 End: 05-23-2024 ambulatory 05/23/2024 9:00 AM EDT Initial [facility] [address] [place] [address] [facility] Start: 05-23-2024 End: 05-23-2024 Professional / ancillary services management 05/23/2024 8:30 AM EDT Ancillary Procedure [facility] [address] [facility] [address] [facility] Start: 05-20-2024 End: 05-20-2024 Patient encounter procedure 05/20/2024 9:30 AM EDT Office Visit [facility] [address] [facility] [address] [place] [address] Camilla Garcia PA [address] [facility] [address] [place], [place] [id number] Arrived [facility] Comment on above: Arrived Start: 04-20-2024 Urine microalbumin profile DTaP,Tdap,Td Vaccine (7 - Td or Tdap) [facility] Start: 09-24-2023 Depression Assessment Depression Ass essment [facility] Start: 05-25-2023 Covid-19 Vaccine () Covid-19 Vaccine () [facility] Start: 05-25-2023 Influenza vaccination C [facility] Start: 04-25-2023 [facility] Start: 04-06-2023 FUV, Provider: Annalee Maza, Status: Pen, Time: 2:40 PM FUV, Provider: Annalee Maza, Status: Pen, Time: 2:40 PM -[facility] 320 DO Work Phone: Start: 2022 PAP TESTING PAP TESTING [facility] Start: 2022 Screening for malign ant neoplasm of cervix [facility] Start: 10-13-2022 FUV, Provider: Annalee Maza, Status: Pen, Time: 9:20 AM FUV, Provider: Annalee Maza, Status: Pen, Time: 9:20 AM -[facility] 320 DO Work Phone: Start: 09-24-2022 [facility] Start: 09-11-2022 FUV, Provider: Melodie Alcaraz, Status: Pen, Time: 9:30 AM FUV, Provider: Melodie Alcaraz, Status: Pen, Time: 9:30 AM -[facility] 250 DO Work Phone: Start: 09-11-2022 EVENT EZEKIEL, Provider : HERIBERTO SINGH FIRST LINE PRODUCTION SUPERVISOR 1,[id number], Status: Pen, Time: 8:30 AM EVENT EZEKIEL, Provider: HERIBERTO SINGH FIRST LINE PRODUCTION SUPERVISOR 1,[id number], Status: Pen, Time: 8:30 AM -[facility] 320 DO Work Phone: Start: 08-14-2022 EVENT EZEKIEL, Provider : HERIBERTO LEMON FIRST LINE PRODUCTION SUPERVISOR 1,[id number], Status: Pen, Time: 10:00 AM EVENT EZEKIEL, Provider: HERIBERTO LEMON FIRST LINE PRODUCTION SUPERVISOR 1,[id number], Status: Pen, Time: 10:00 AM -[facility] 250 DO Work Phone: Start: 07-21-2022 NPVRFRL, Provider: Annalee Maza, Status: Pen, Time: 7:20 AM NPVRFRL, Provider: Annalee Maza, Status: Pen, Time: 7:20 AM -[facility] 250 DO Work Phone: Start: 07-10-2022 FUV, Provider: Melodie Alcaraz, Status: Pen, Time: 10:45 AM FUV, Provider: Melodie Alcaraz, Status: Pen, Time: 10:45 AM MP-[facility] 250 DO Work Phone: Start: 06-05-2022 [facility], Provider: Annalee Maza, Status: Pen, Time: 10:00 AM [facility], Provider: Annalee Maza, Status: Pen, Time: 10:00 AM -[facility] 250 DO Work Phone: Start: 05-25-2022 Influenza vaccination C [facility] Start: 05-18-2022 FUV, Provider: Melodie Alcaraz, Status: Pen, Time: 9:15 AM FUV, Provider: Melodie Alcaraz, Status: Pen, Time: 9:15 AM -[facility] 250 DO Work Phone: Start: 05-08-2022 End: 05-08-2022 Patient encounter procedure [facility]-Res[facility] Therapy Start: 05-03-2022 SURGNONUH, Provider: María Elena Freire, Status: Pen, Time: 10:00 AM SURGNONUH, Provider: María Elena Freire, Status: Pen, Time: 10:00 AM MP-[facility] 250 DO Work Phone: Start: 03-28-2022 EVENT EZEKIEL, Provider : HERIBERTO SINGH FIRST LINE PRODUCTION SUPERVISOR 1,[id number], Status: Pen, Time: 8:00 AM EVENT EZEKIEL, Provider: HERIBERTO SINGH FIRST LINE PRODUCTION SUPERVISOR 1,[id number], Status: Pen, Time: 8:00 AM -[facility]-[place] 250 DO Work Phone: Start: 01-25-2022 End: 03-27-2022 Chronic hepatitis differentiation between hepatitis B and C virus panel - Serum or Plasma [facility] Work Phone: Comment on above: Expected: 01/25/2022 , Expires: 03/27/2022 Start: 01-25-2022 End: 03-27-2022 Complement C1 esterase inhibitor [Mass/volume] in Serum or Plasma [facility] Work Phone: Comment on above: Expected: 01/25/2022 , Expires: 03/27/2022 Start: 01-25-2022 End: 03-27-2022 Complement C2 [Mass/volume] in Serum or Plasma [facility] Work Phone: Comment on above: Expected: 01/25/2022 , Expires: 03/27/2022 Start: 09-24-2021 DEPRESSION ASSESSMENT DEPRESSION ASS ESSMENT [facility] Start: 06-16-2021 COVID-19 VACCINE (3 - Booster for Pfizer series) COVID-19 VACCINE (3 - Booster for Pfizer series) [facility] Start: 03-11-2021 COVID-19 VACCINE (3 - Booster for Pfizer series) COVID-19 VACCINE (3 - Booster for Pfizer series) [facility] Start: 02-11-2021 COVID-19 VACCINE (3 - Pfizer risk series) COVID-19 VACCINE (3 - Pfizer risk series) [facility] Start: 2020 SHINGRIX VACCINE (1 of 2) VANG GRIX VACCINE (1 of 2) [facility] Start: 2020 Urine microalbumin profile [facility] Start: 12-03-2019 Adult BMI Follow Up Plan Adult BMI Follow Up Plan [facility] Start: 12-03-2019 Adult BMI Screening Adult BMI Screen ing [facility] Start: 12-03-2019 Anxiety Screening Anxiety Screening [facility] Start: 12-03-2019 CHLAMYDIA SCREENING (18-24) CHLAMYDIA SCREENING (18-24) [facility] Start: 12-03-2019 Depression Screening Depression Scre ening [facility] Start: 12-03-2019 GC (GONORRHEA) SCREVenita NINI (18-24) GC (GONORRHEA) SCREENING (18-24) [facility] Start: 12-03-2019 HEPATITIS C SCREENING HEPATITIS C SC JESSICA [facility] Start: 12-03-2019 HIV SCREENING HIV SCREENING [facility] Start: 12-03-2019 HIV screening HIV Screening [facility] Start: 12-03-2019 Screening for Chlamy taylor trachomatis Chlamydia Screening () [facility] Start: 2017 Meningococcal B Vacc ine: Consider Based On Risk (1 of 2 - Patient Seeks Protection) Meningococcal B Vaccine: Consider Based On Risk (1 of 2 - Patient Seeks Protection) [facility] Start: 12-03-2015 PEDS TO ADULT TRANSI TION ANNUAL ASSESSMENT PEDS TO ADULT TRANSITION ANNUAL ASSESSMENT [facility] Start: 2013 Adult depression screening assessment DEPRESSION SCREENING [facility] Start: 2013 PEDS TO ADULT TRANSI TION INITIAL DISCUSSION PEDS TO ADULT TRANSITION INITIAL DISCUSSION [facility] Start: 2013 Tobacco Screening Tobacco Screening [facility] Start: 2012 HPV VACCINE (1 - 2-d ose series) HPV VACCINE (1 - 2-dose series) [facility] Start: 12-03-2011 MENINGOCOCCAL B: 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 based on risk (1 of 2 - Risk Bexsero 2-dose series) MENINGOCOCCAL B: Consider based on risk (1 of 2 - Risk Bexsero 2-dose series) [facility] Start: 2010 HPV Vaccine (1 - 2-d ose series) HPV Vaccine (1 - 2-dose series) [facility] Start: 2010 HPV VACCINES (1 - 2- dose series) HPV VACCINES (1 - 2-dose series) [facility] Start: 2008 DTaP/Tdap/Td VACCINE S (1 - Tdap) DTaP/Tdap/Td VACCINES (1 - Tdap) [facility] Start: 12-03-2007 PNEUMOCOCCAL (1 - PCV) PNEUMOCOCCAL (1 - PCV) [facility] Start: 2002 MMR VACCINES (1 of 1 - Standard series) MMR VACCINES (1 of 1 - Standard series) [facility] Start: 2002 VARICELLA VACCINES ( 1 of 2 - 2-dose childhood series) VARICELLA VACCINES (1 of 2 - 2-dose childhood series) [facility] Start: 06-04-2002 COVID-19 Vaccine (#1) COVID-19 Vacci ne (#1) [facility] Start: 2001 HEPATITIS B (1 of 3 - 3-dose series) HEPATITIS B (1 of 3 - 3-dose series) [facility] Start: 2001 Hepatitis B Vaccine (1 of 3 - 3-dose series) Hepatitis B Vaccine (1 of 3 - 3-dose series) [facility] Start: 2001 HEPATITIS B VACCINES (1 of 3 - 3-dose series) HEPATITIS B VACCINES (1 of 3 - 3-dose series) [facility] Start: 2001 Screening for Chlamy taylor trachomatis Chlamydia Screening [facility] Bacteria identified in Urine by Culture Urine culture Microbiology Routine Missed menses Ordered: 05/23/2024 [facility] Comment on above: Ordered: 05/23/2024 CBC W Auto Different ial panel - Blood CBC and differential Lab Routine Missed menses Ordered: 05/23/2024 [facility] Comment on above: Ordered: 05/23/2024 CHLAMYDIA TRACHOMATI S (GENITO/STI) CHLAMYDIA TRACHOMATIS (GENITO/STI) Lab Routine STD exposure Ordered: 08/05/2024 [facility] Comment on above: Ordered: 08/05/2024 Cytology Cervical or vaginal smear or scraping study Pap Smear Pathology and Cytology Routine Well woman exam with routine gynecological exam Ordered: 08/05/2024 [facility] Comment on above: Ordered: 08/05/2024 Hemoglobin A1c/Hemoglobin.total in Blood Hemoglobin A1c Lab Routine Missed menses Ordered: 05/23/2024 [facility] Comment on above: Ordered: 05/23/2024 Hepatitis B virus ramirez rface Ag [Presence] in Serum or Plasma by Immunoassay Hepatitis B surface antigen Lab Routine Missed menses Ordered: 05/23/2024 [facility] Comment on above: Ordered: 05/23/2024 Hepatitis C virus Ab [Presence] in Serum or Plasma by Immunoassay Hepatitis C antibody Lab Routine Missed menses Ordered: 05/23/2024 [facility] Comment on above: Ordered: 05/23/2024 HIV-1/HIV-2 antigen/antibody combination immunoassay HIV-1 and HIV-2 antibodies Lab Routine Missed menses Ordered: 05/23/2024 [facility] Comment on above: Ordered: 05/23/2024 Neisseria gonorrhoea e DNA [Presence] in Unspecified specimen by PERFECTO with probe detection Neisseria gonorrhea DNA probe, direct Lab Routine STD exposure Ordered: 08/05/2024 [facility] Comment on above: Ordered: 08/05/2024 Patient Education [facility] Work Phone: Patient referral [facility] Work Phone: Reagin Ab [Presence] in Serum by RPR RPR Lab Routine Missed menses Ordered: 05/23/2024 [facility] Comment on above: Ordered: 05/23/2024 Rubella antibody, IgG Rubella an tibody, IgG Lab Routine Missed menses Ordered: 05/23/2024 [facility] Comment on above: Ordered: 05/23/2024 SURESWAB(R) ADVANCED VAGINITIS PLUS, TMA SURESWAB(R) ADVANCED VAGINITIS PLUS, TMA Pathology and Cytology Routine Vaginal discharge Ordered: 08/05/2024 [facility] Work Phone: Comment on above: Ordered: 08/05/2024 End: 08-04-2024 XR KNEE GENERAL 4V AP BOTH/PA BOTH/LAT/MERC RIGHT XR KNEE GENERAL 4V AP BOTH/PA BOTH/LAT/MERC RIGHT Radiology Routine Right knee pain, unspecified chronicity 1 Occurrences starting 07/06/2023 until 08/04/2024 [facility] Work Phone: Comment on above: 1 Occurrences starti ng 07/06/2023 until 08/04/2024 [facility] Immunizations Immunization Date Immunization Notes Care Provider Cheryl will 07-24-2024 influenza, seasonal, injectable, preservative free Camilla TOLBERT Work Phone: [facility] [employer] Work Phone: 03-25-2024 tetanus toxoid, redu richar diphtheria toxoid, and acellular pertussis vaccine, adsorbed Camilla TOLBERT Work Phone: [facility] 07-05-2023 influenza virus vaccine, unspecified formulation Celeste Watson [facility] 07-05-2023 influenza, injectabl e, quadrivalent, preservative free Camilla TOLBERT Work Phone: [facility] 01-14-2021 Pfizer-BioNTech COVID-19 Vacc 30 MCG/0.3ML Intramuscular Suspension Ibis A Myra Work Phone: [facility] Comment on above: Result Comment: 2023: TPVAL 12-24-2020 Pfizer-BioNTech COVID-19 Vacc 30 MCG/0.3ML Intramuscular Suspension Ibis A Myra Work Phone: [facility] Comment on above: Result Comment: 2023: TPVAL 12-11-2017 meningococcal polysaccharide (groups A, C, Y and W-135) diphtheria toxoid conjugate vaccine (MCV4P) Christina Portia Other [facility] [employer] Other 12-11-2017 meningococcal ACWY vaccine, unspecified formulation Celeste Michelleradha [facility] 11-06-2014 human papilloma viru s vaccine, quadrivalent Christina Portia Other [employer] Other 11-06-2014 HPV, unspecified formulation Ibis A Myra Work Phone: [facility] 250 DO Work Phone: 06-26-2014 HPV, unspecified formulation Celeste Rinradha [facility] 06-26-2014 human papilloma viru s vaccine, quadrivalent Christina Portia Other [facility] [employer] Other 04-20-2014 human papilloma viru s vaccine, quadrivalent Christina Portia Other [facility] [employer] Other 04-20-2014 meningococcal polysaccharide (groups A, C, Y and W-135) diphtheria toxoid conjugate vaccine (MCV4P) Christina Portia Other [facility] [employer] Other 04-20-2014 tetanus toxoid, redu richar diphtheria toxoid, and acellular pertussis vaccine, adsorbed Christina Portia Other [facility] 04-20-2014 HPV, unspecified formulation Celeste [employer] [facility] 04-20-2014 meningococcal ACWY vaccine, unspecified formulation [employer] [facility] 12-27-2006 diphtheria, tetanus toxoids and acellular pertussis vaccine, unspecified formulation Biis A Myra Work Phone: [facility] [employer] 250 DO Work Phone: 12-27-2006 DTaP, unspecified formulation Celeste RinHanzo Archives [facility] 12-27-2006 measles, mumps, rubella, and varicella virus vaccine Ibis A Myra Work Phone: [facility] 12-27-2006 poliovirus vaccine, inactivated [employer]bis [employer] Work Phone: [facility] [employer] 250 DO Work Phone: 12-27-2006 poliovirus vaccine, unspecified formulation Celeste RinHanzo Archives [facility] 02-06-2003 diphtheria, tetanus toxoids and acellular pertussis vaccine, unspecified formulation [employer] Work Phone: [place] [address] DO Work Phone: 02-06-2003 DTaP, unspecified formulation Celeste Rinkes [facility] 02-06-2003 haemophilus influenz ae type b vaccine, conjugate unspecified formulation [employer] Work Phone: [place] [address] DO Work Phone: 02-06-2003 Hib, unspecified formulation Celeste Rinkes [facility] 02-06-2003 measles, mumps and rubella virus vaccine [employer]bis [employer] Work Phone: [facility] 02-06-2003 varicella virus vaccine Susan ica A Myra Work Phone: [facility] 07-02-2002 diphtheria, tetanus toxoids and acellular pertussis vaccine, unspecified formulation [employer] Work Phone: [place] [address] DO Work Phone: 07-02-2002 DTaP, unspecified formulation Celeste RinHanzo [employer] [facility] 07-02-2002 haemophilus influenz ae type b vaccine, conjugate unspecified formulation [employer] Work Phone: [place] [address] DO Work Phone: 07-02-2002 Hib, unspecified formulation Celeste Rinkes [facility] 07-02-2002 pneumococcal conjuga te vaccine, 7 valent Ibis A Myra Work Phone: [place] [address] DO Work Phone: 07-02-2002 poliovirus vaccine, inactivated Ibis [employer] Myra Work Phone: [place] [address] DO Work Phone: 07-02-2002 poliovirus vaccine, unspecified formulation Celeste MaritnezHanzo Archives [facility] 05-19-2002 diphtheria, tetanus toxoids and acellular pertussis vaccine, unspecified formulation [employer] Work Phone: [place] [address] DO Work Phone: 05-19-2002 DTaP, unspecified formulation Celeste RinHanzo [employer] [facility] 05-19-2002 haemophilus influenz ae type b conjugate and Hepatitis B vaccine [employer]bis [employer] Work Phone: [place] [address] DO Work Phone: 05-19-2002 pneumococcal conjuga te vaccine, 7 valent [employer]bis [employer] Work Phone: [place] [address] DO Work Phone: 05-19-2002 poliovirus vaccine, inactivated Ibis [employer] Myra Work Phone: [place] [address] DO Work Phone: 05-19-2002 poliovirus vaccine, unspecified formulation Celeste RinHanzo Archives [facility] 03-05-2002 diphtheria, tetanus toxoids and acellular pertussis vaccine, unspecified formulation Ibis A Myra Work Phone: [place] [address] DO Work Phone: 03-05-2002 DTaP, unspecified formulation Celeste RinHanzo Archives [facility] 03-05-2002 haemophilus influenz ae type b conjugate and Hepatitis B vaccine Ibis A Myra Work Phone: [place] [address] DO Work Phone: 03-05-2002 poliovirus vaccine, inactivated Ibis A Myra Work Phone: [facility] 250 DO Work Phone: 03-05-2002 poliovirus vaccine, unspecified formulation Celeste Watson [facility] 2001 hepatitis B vaccine, pediatric or pediatric/adolescent dosage Ibis A Myra Work Phone: [facility] Payers Date Payer Category Payer Self-pay [id number] 2023 Unknown [id number] 2022 Medicaid [facility] [id number] 2021 Private Health Insurance [id number] 2021 Private Health Insurance [id number] 2.16.840.1.759418.19 2020 Private Health Insurance [facility] CHOICE PLUS [id number] 2020-Present [phone] [address] [place] [address] [facility] [id number]. [id number] 2020 Unknown [id number] 2017 Managed Care Other (unspecified) [id number]. [id number] 2013 Medicaid [facility] MEDICA[facility] [id number] 2013-Present [phone] [address] [place] [address] Medicaid [id number]. [id number] 2013 Medicaid [id number] [id number]. [id number] 2007 Unknown [id number] 2.16.840.1.282209.19 2001 Unknown [id number] 2.16.840.1.117805.3.579.2. 1068 2001 Unknown [id number] 2.16.840.1.534197.3.579.2. 594 2001 Unknown [id number] 2.16.840.1.848191.3.579.2. 594 2001 Unknown [id number] 2.16.840.1.234577.3.579.2. 356 2001 Unknown [id number] 2.16.840.1.587702.3.579.2. 356 2001 Unknown [id number] 2.16.840.1.650869.3.579.2. 356 2001 Unknown [id number] 2.16.840.1.324632.3.579.2. 356 2001 Unknown [id number] 2.16.840.1.091356.3.579.2. 356 2001 Unknown [id number] 2.16.840.1.748385.3.579.2. 356 2001 Unknown [id number] 2.16.840.1.194294.3.579.2. 356 2001 Unknown [id number] 2.16.840.1.461497.3.579.2. 356 2001 Unknown [id number] 2.16.840.1.039847.3.579.2. 727 2001 Unknown [id number] 2.16.840.1.683306.3.579.2. 727 2001 Unknown [id number] 2.16.840.1.885141.3.579.2. 727 2001 Unknown [id number] 2.16.840.1.937084.3.579.2. 727 2001 Unknown [id number] 2.16.840.1.428277.3.579.2. 727 2001 Unknown [id number] 2.16.840.1.279946.3.579.2. 1286 2001 Unknown [id number] 2.16.840.1.167526.3.579.2. 1286 2001 Unknown [id number] 2.16.840.1.090651.3.579.2. 1286 2001 Unknown [id number] 2.16.840.1.014962.3.579.2. 1286 2001 Unknown [id number] 2.16.840.1.665476.3.579.2. 1259 2001 Unknown [id number] 2.16.840.1.812740.3.579.2. 1259 2001 Unknown [id number] 2.16.840.1.580039.3.579.2. 1259 2001 Unknown [id number] 2.16.840.1.304872.3.579.2. 1259 2001 Unknown [id number] 2.16.840.1.258968.3.579.2. 1259 2001 Unknown [id number] 2.16.840.1.810732.3.579.2. 1259 2001 Unknown [id number] 2.16.840.1.649115.3.579.2. 1259 2001 Unknown [id number] 2.16.840.1.770910.3.579.2. 9 2001 Unknown [id number] 2.16.840.1.061232.3.579.2. 9 2001 Unknown [id number] 2.16.840.1.976550.3.579.2. 9 2001 Unknown [id number] 2.16.840.1.505127.3.579.2. 9 2001 Unknown [id number] 2.16.840.1.057364.3.579.2. 9 2001 Unknown [id number] 2.16.840.1.979197.3.579.2. 9 2001 Unknown [id number] 2.16.840.1.842341.3.579.2. 9 2001 Unknown [id number] 2.16.840.1.266103.3.579.2. 9 2001 Unknown [id number] 2.16.840.1.483040.3.579.2. 1259 Unknown Unknown [employer] BC/BS [id number] Unknown [id number] 2.16.840.1.519284.3.579.2. 531 Social History Date Type Detail Facility Tobacco smoking stat [facility] Tobacco smoking consumption unknown [facility] Work Phone: Start: 2001 Sex Assigned At Not on file C [facility] Start: 01-15-2022 End: 07-31-2022 Exposure to SARS-CoV-2 (event) Not sure [facility] Start: 12-28-2022 End: 02-25-2024 Sex Assigned At [facility] Start: 12-28-2022 End: 02-25-2024 No alcohol use No alcohol use [facility] Comment on above: very rarely soda; Start: 09-20-2019 End: 02-20-2023 Tobacco smoking status NHIS Never smoked tobacco (finding) [facility] Start: 2001 Sex Assigned At Female F [facility] Start: 07-31-2022 End: 02-20-2023 Tobacco use and exposure Smokeless tobacco non-user [facility] Adult Depression Screening Assessment 0 [facility] Start: 09-29-2023 Gender identity Identifies as female gender (finding) [facility] Start: 06-04-2024 End: 10-27-2024 Alcoholic beverage intake Ex-drinker (finding) [facility] Do you belong to any clubs or organizations such as pentecostal groups, unions, fraternal or athletic groups, or [...] Start: 04-27-2015 End: 09-26-2024 Sex Female (finding) [facility] NEGATED: Highlighted rowStart: NINF History of tobacco use Passive smoker [facility] Medical Equipment Procedure Code Equipment Code Equipment Origin al Text Equipment Identifier Dates 1 strip by In Vi tro route Daily Use in the morning prior to breakfast, 1 hour after each meal for a total of 4times daily. [id number] Start: 09-18-2024 End: 10-18-2024 1 each by In Vit ro route Daily Use to check FSBS four times daily [id number] Start: 09-18-2024 End: 10-18-2024 Clinical Notes 09-24-2007 to 10-29-2024 Camilla Bar, CV/CVN CV TSC SYSTEM OPERATOR - 10/29/2024 3:50 PM Teresa Bar, CV/CVN CV TSC SYSTEM OPERATOR - 10/15/2024 3:30 PM NOBLEharishtawana Richpaulaelaine, CV/CVN CV TSC SYSTEM OPERATOR - 10/02/2024 11:00 AM ESTTelephone Encounter - Pilar Alonso, CV/CVN CV TSC SYSTEM OPERATOR - 09/25/2024 12:42 PM EST Note Date [...] nursing note reviewed. Exam conducted with a panman present. Vitals: Estimated body mass index is [...] Osei Malik DO documented in this encounter [facility] 10-15-2024 History of Present illness Narrative Reason [...] nursing note reviewed. Exam conducted with a panman present. Vitals: Estimated body mass index is [...] Osei Malik DO documented in this encounter [facility] 10-02-2024 History of Present [...] nursing note reviewed. Exam conducted with a panman present. Vitals: Estimated body mass index is [...] Osei Malik DO documented in this encounter [facility] 09-25-2024 Telephone encounter Note [...] today. Patient was advised to report to [facility] for check and she was asking if she could go to [facility] as that's closer she was advised we prefer [place] but she can go where she is comfortable. Patient states will go to [facility] as she is at work and that's closer right now. Patient advised note would be in chart. [facility] Work Phone: 09-25-2024 Miscellaneous [...] today. Patient was advised to report to [facility] for check and she was asking if she could go to [facility] as that's closer she was advised we prefer [place] but she can go where she is comfortable. Patient states will go to [facility] as she is at work and that's closer right now. Patient advised note would be in chart. documented in this encounter [facility] 09-18-2024 History of Present [...] nursing note reviewed. Exam conducted with a panman present. Vitals: Estimated body mass index is [...] Osei Malik DO documented in this encounter [facility] 09-03-2024 History of Present [...] Osei Malik DO documented in this encounter [facility] 09-02-2024 History of Present illness Narrative Images from the original note were not included. [facility] Follow-Up VIRTUAL VISIT This is a virtual visit using [employer] Video Visit. It required patient-provider interaction for the medical decision making as documented below. I have communicated my name and active licensure. The patient's identity and physical location were verified at the time of this visit. Either the patient or their legal lead generation representative has been informed of the risks [...] increased Exercise Shared medical appointment with Dr. Cheeam I spent a total of 20 minutes on the date of the service which included preparing to see the patient, [id number] patient care, completing clinical documentation, obtaining and/or reviewing separately obtained history, performing a medically appropriate examination, and counseling and educating the patient/family/caregiver. Jyoti Dickey PA-C Neuromuscular Medicine [address] [place] [address]. [id number] Appointment: [phone] During our virtual visit encounter we discussed [...] bright light?: Mild documented in this encounter [facility] 09-02-2024 Note HNO ID: [id number] Author: JYOTI DICKEY PA-C Service: ? Author Type: Physician Nib Finisher Type: Progress Notes Filed: 09/02/2024 11:21 Note Text: [facility] Follow-Up VIRTUAL VISIT This is a virtual visit using [employer] Video Visit. It required patient-provider interaction for the medical decision making as documented below. I have communicated my name and active licensure. The patient's identity and physical location were verified at the time of this visit. Either the patient or their legal lead generation representative has been informed of the risks [...] female here t (more content not included)... [facility] 08-29-2024 Miscellaneous Notes Office Director spoke to patient . Patient has complains of SOB which she states is mainly at night time. She has recently seen her PCP who stated that her lungs are tight/restricted and prescribed her an inhaler. Today the patient is feeling better and states that when she checked her SPO2 today it was at 96%. Office Director advised patient to monitor and if her O2 Sat falls under 95% and/or the inhaler does not help to present to her nearest ER. Patient verbalized understanding. documented in this encounter [facility] 08-29-2024 Telephone encounter Note Office Director spoke to patient . Patient has complains of SOB which she states is mainly at night time. She has recently seen her PCP who stated that her lungs are tight/restricted and prescribed her an inhaler. Today the patient is feeling better and states that when she checked her SPO2 today it was at 96%. Office Director advised patient to monitor and if her O2 Sat falls under 95% and/or the inhaler does not help to present to her nearest ER. Patient verbalized understanding. [facility] 08-27-2024 Telephone encounter Note Alternative inhaler requested by pharmacy. [facility] 08-27-2024 Miscellaneous Notes Alternative inhaler requested by pharmacy. documented in this encounter [facility] 08-27-2024 History of Present [...] her asthma. 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 documented in this encounter [facility] 08-13-2024 History of Present [...] no Have you been seen here at [facility] in a previous ? no Recent ER visits or hospitalizations? no Bring blood sugar log or meter with you today? (Please bring them with you for every visit at [facility]) n/a Flu vaccine (Jul-November)? Yes Any concerns [...] Resource Strain: Low Risk (02/25/2024) Received from [facility] Overall Financial Resource Strain (CARDIA) Difficulty of Paying Living Expenses: Not very hard Food Insecurity: No Food Insecurity (08/13/2024) Hunger Screening Food Insecurity - Worry: Never True Food Insecurity - Inability: Never True Transportation Needs: No Transportation Needs (02/25/2024) Received from [facility] PRAPARE - Transportation Lack of Transportation (Medical): No Lack of Transportation (Non-Medical): No Physical Activity: Inactive (02/25/2024) Received from [facility] Exercise Vital Sign Days of Exercise per Week: 0 days Minutes of Exercise per Session: 0 min Stress: No Stress Concern Present (02/25/2024) Received from [facility] of Occupational Health - Occupational Stress Questionnaire Feeling of Stress : Only a little Social Connections: Moderately Integrated (02/25/2024) Received from [facility] Social Connection and Isolation Panel [NHANES] Frequency of Communication with Friends and Family: More than three times a week Frequency of Social Gatherings with Friends and Family: Three times a week Attends Latter-Day Services: More than 4 times per year Active Member of Clubs or Organizations: No Attends Club or Organization Meetings: Patient declined Marital Status: Interpersonal Safety: Not on file Housing Instability: Low Risk (02/25/2024) Received from [facility] Housing Stability Vital Sign [...] complications, or both, related to use. The [employer] [employer] and the [...] tachycardia syndrome) She follows with Neurology at [facility]. Last visit was on 07/02/2024. External records reviewed. 07/02/2024 - General Neurology, Joie Seaman APRN.BRAKE LINING FINISHER ASSESSMENT Madyson Mai is a 23 year [...] continue with routine care in your office [facility], the CDC, and other organizations representing maternal and public health professionals recommend that , , and lactating people and those considering receive the COVID-19 vaccination. Vaccination is the best method to reduce maternal and complications of SARS-CoV-2 infection. This document was created with [employer] technology. Though I make every effort to review the dictation as it is transcribed, on occasion the spoken word can be misinterpreted by the technology leading to inappropriate words, phrases, or sentences. This note is addressed to the requesting provider as a consultation for clinical guidance. Specific medical abbreviations are occasionally used and those are generally approved by the [place]?Board of?Obstetrics and?Gynecology?as well as?Loretta s abbreviations. The above plan of care was based solely on the diagnoses for which a consultation was requested. ?More frequent testing may be indicated based on her other medical/obstetrical conditions. The management of other or medical conditions is beyond the scope of requested consultation and will continue to be followed by the primary rod buster or primary care provider. Thank you for [...] procedures Referring and communicating with other health insurance healthcare representative (not separately reported) Documenting clinical information in the electronic or other health record Independently interpreting results (not separately reported) and communicating results to the patient/family/caregiver Care coordination (not separately reported) [facility] Tele[facility] encounter Note Can we have her schedule for a follow up appointment. Can be virtual or in person. Thanks, AM [facility] Work Phone: 08-06-2024 Miscellaneous Notes Can we have her schedule for a follow up appointment. Can be virtual or in person. Thanks, AM documented in this encounter [facility] 08-05-2024 History of Present illness Narrative [...] nursing note reviewed. Exam conducted with a panman present. Vitals: Estimated body mass index is [...] obtained without difficulty and patient was given [facility] order to have obtained. Orders Placed This Encounter Procedures CHLAMYDIA TRACHOMATIS (GENITO/STI) Neisseria gonorrhea DNA probe, direct Alpha fetoprotein, maternal POCT urinalysis dipstick manually resulted Follow Up: Patient is to return to our office in 4 weeks for routine OB appointment Documented by Annika Silva LPN on behalf of: TOMASZ Rizvi documented in this encounter [facility] 07-03-2024 History of Present [...] current . Patient is being referred to [facility] for her twin , gave her information about who she will be seeing there. No orders of the defined types were placed in this encounter. Follow Up: Patient is to return to office in 4 weeks for routine OB appointment. Documented by Ibis Sandoval on behalf of: TOMASZ Rizvi documented in this encounter [facility] 07-02-2024 History of Present illness Narrative Images from the original note were not included. [facility] Follow Up / Established Virtual Visit I have communicated my name and active licensure. The patient's identity and physical location were verified at the time of this visit. Either the patient or their legal lead generation representative has been informed of the risks and benefits of -- and alternatives to -- treatment through a remote evaluation and consents to proceed with the evaluation remotely. Individuals who were included in, or assisted with the encounter were: Madyson Mai Joie Seaman APRN.BRAKE LINING FINISHER Chief Complaint/Issues: Madyson Mai is a 23 year old female seen in the [facility] for: POTS Most [...] Plan 07/02/2024 - General Neurology, Joie Seaman, JOHNNY.BRAKE LINING FINISHER ASSESSMENT Madyson Mai is a 23 year [...] which included preparing to see the patient, [id number] patient care, completing clinical documentation, obtaining and/or [...] and warrants attention documented in this encounter [facility] 07-02-2024 Note HNO ID: [id number] Author: DIEDERICH, JOIE, CENTER REP.BRAKE LINING FINISHER Service: ? Author Type: Nurse Practitioner Type: Progress Notes Filed: 07/02/2024 19:57 Note Text: [facility] Follow Up / Established Virtual Visit I have communicated my name and active licensure. The patient's identity and physical location were verified at the time of this visit. Either the patient or their legal lead generation representative has been informed of the risks and benefits of -- and alternatives to -- treatment through a remote evaluation and consents to proceed with the evaluation remotely. Individuals who were included in, or assisted with the encounter were: Madyson Mai Joie Seaman APRN.BRAKE LINING FINISHER Chief Complaint/Issues: Madyson Mai is a 23 year old female seen in the [facility] for: POTS Most [...] Plan 07/02/2024 - General Neurology, Joie Seaman APRN.BRAKE LINING FINISHER ASSESSMENT Madyson Mai is a 23 year [...] Mostly Moderately S (more content not included)... [facility] 06-04-2024 History of Present illness Narrative [...] nursing note reviewed. Exam conducted with a panman present. Vitals: Estimated body mass index is [...] possibly adding medication. Pt being referred to [facility] for TWIN gestation. Expectations throughout regarding labs, ultrasounds, and appointments have been discussed with the patient in detail. It was reiterated that the patient is to drink 6-8 glasses of water a day, eat 6 small meals a day, do not consume raw or undercooked meat, and stay away from [facility]. Patient has been consulted regarding any further do's and don'ts of . Patient voiced understanding and all questions and concerns were answered. Orders Placed This Encounter Procedures POCT urinalysis dipstick manually resulted Follow Up: Patient is to return in 4 weeks for routine OB appointment. Documented by Camilla Bar LPN on behalf of: Osei Malik DO documented in this encounter [facility] 05-23-2024 History of Present [...] providers found * documented in this encounter [facility] 05-20-2024 History of Present [...] topical cream for less systemic absorption. Consider patient care technician instructor. Can provide pt with referral to PT if symptoms do not improve with the above. X-rays not yet indicated, especially as pt is . Follow up if symptoms worsen or fail to improve. documented in this encounter [facility] 03-20-2024 History of Present illness Narrative Images from the original note were not included. [facility] Follow-Up VIRTUAL VISIT This is a virtual visit using [employer] Video Visit. It required patient-provider interaction for the medical decision making as documented below. I have communicated my name and active licensure. The patient's identity and physical location were verified at the time of this visit. Either the patient or their legal lead generation representative has been informed of the risks [...] which included preparing to see the patient, divw-pr-wjrr patient care, completing clinical documentation, obtaining and/or reviewing separately obtained history, performing a medically appropriate examination, counseling and educating the patient/family/caregiver, and ordering medications, tests, or procedures. Jyoti Dickey PA-C Neuromuscular Medicine [address] [place] [address]. [id number] Appointment: [phone] During our virtual visit encounter we discussed [...] problem? : Mild documented in this encounter [facility] 03-20-2024 Note HNO ID: [id number] Author: JYOTI DICKEY PA-C Service: ? Author Type: Physician Nib Finisher Type: Progress Notes Filed: 03/20/2024 15:17 Note Text: [facility] Follow-Up VIRTUAL VISIT This is a virtual visit using [employer] Video Visit. It required patient-provider interaction for the medical decision making as documented below. I have communicated my name and active licensure. The patient's identity and physical location were verified at the time of this visit. Either the patient or their legal lead generation representative has been informed of the risks and benefits of -- and alternatives to -- treatment through a remote evaluation and consents to proceed with the evaluation remotely. Madyson Mai is a 23 year old female here today for a follow up regarding POTS. Last Visit 11/30/2023: Madyson Mai is a 22 year old here today for initial evaluation. Madyson aMi has a unremarkable past medical history. Patient [...] the mean hea (more content not included)... [facility] 11-30-2023 History of Present illness Narrative Images from the original note were not included. [facility] New Patient Evaluation [...] experienced LOC while walking up the stairs. Malone prodromal symptoms including lightheadedness and tunnel vision. [...] Plantarflexion 5/5 5/5 Movement/Coordination Finger-to- nose-finger and yria-lq-ttkt intact bilaterally. No evidence of ataxia arms. [...] which included preparing to see the patient, uvjs-ya-[id number] patient care, completing clinical documentation, obtaining and/or [...] on 11/30/23. Jyoti Dickey PA-C Neuromuscular Medicine [address] [place] [address]. [id number] Appointment: [phone] 1. This office note has been dictated [...] problem? : Moderate documented in this encounter [facility] 11-30-2023 Note HNO ID: [id number] Author: JYOTI DICKEY PA-C Service: ? Author Type: Physician Nib Finisher Type: Progress Notes Filed: 11/30/2023 11:14 Note Text: [facility] New Patient Evaluation [...] experienced LOC while walking up the stairs. Malone prodromal symptoms including lightheadedness and tunnel vision. [...] breathing: - Tac (more content not included)... [facility] 11-12-2023 Note HNO ID: [id number] Author: ?, ?, ? Service: ? Author [...] Care Visit completed when applicable. Gauri Harris [facility] 11-12-2023 History of Present illness Narrative [...] applicable. Gauri Harris documented in this encounter [facility] 10-10-2023 Note HNO ID: [id number] Author: AURORA SANTIAGO PA-C Service: ? Author Type: Physician Nib Finisher Type: Progress Notes Filed: 10/10/2023 16:33 Note Text: [facility] New Patient Evaluation [...] No current facility-adminis (more content not included)... [facility] 10-10-2023 Note HNO ID: [id number] Author: ANGELIQUE RUTH MD Service: ? Author [...] VE Couplets or VE Triplets were present. [facility] 07-20-2023 Telephone encounter Note Call to Madyson to discuss referral to dysautonomia clinic. Informed her that we are unable to provide dysautonomia evaluation at this time. Provided number for [facility] scheduling service. No other needs at this time. [facility] 07-20-2023 Miscellaneous Notes Call to Madyson to discuss referral to dysautonomia clinic. Informed her that we are unable to provide dysautonomia evaluation at this time. Provided number for [facility] scheduling service. No other needs at this time. documented in this encounter [facility] 07-10-2023 Note HNO ID: [id number] Author: Jose Armando Grey DO Service: ? Author Type: Physician Type: Progress Notes Filed: 07/10/2023 10:08 AM Note Text: [facility] Office Visit Documentation Note [facility] Sports Medicine Orthopaedic and Rheumatologic [place] HISTORY OF PRESENT ILLNESS (HPI) CHIEF COMPLAINT / REASON FOR VISIT SERVICE DATE: July 10, 2023 PCP: No primary care provider on file. Madyson Schmid is here today at request of Dr. Jose Armando Schmid specifically for consultation of my opinion in regards to the chief complaint listed below. Correspondence will be shared today via the [employer] electronic health record or through regular mail, [...] expectations. She need to consider PT or radio personality. Reaction knee brace Consider [place] toradol, did discuss orthobiologics Follow up: Films prior to visit: Written instructions (see patient instructions) and verbal health education given to patient. Patient verbalizes understanding and agrees with the treatment plan. Jose Armando Grey D.O. [facility] Orthopaedic and Rheumatologic Steel Roller, [facility] AND Mark Program Team Physician, [facility] [employer] Consulting Physician, [place] Nagle, Housing Director [phone] [facility] 07-10-2023 History of Present illness Narrative Images from the original note were not included. [facility] Office Visit Documentation Note [facility] Sports Medicine Orthopaedic and Rheumatologic [place] HISTORY OF PRESENT ILLNESS (HPI) CHIEF COMPLAINT / REASON FOR VISIT SERVICE DATE: July 10, 2023 PCP: No primary care provider on file. Madysonlady Schmid is here today at request of Dr. Jose Armando Schmid specifically for consultation of my opinion in regards to the chief complaint listed below. Correspondence will be shared today via the [employer] electronic health record or through regular mail, [...] expectations. She need to consider PT or radio personality. Reaction knee brace Consider [place] toradol, did discuss orthobiologics Follow up: Films prior to visit: Written instructions (see patient instructions) and verbal health education given to patient. Patient verbalizes understanding and agrees with the treatment plan. Jose Armando Grey D.O. [facility] Orthopaedic and Rheumatologic Steel Rol[employer], [facility] & [employer] Program Team Physician, [facility] [employer] Consulting Physician, [place] Nagel, Housing Director [phone] documented in this encounter [facility] 12-28-2022 History of Present illness Narrative [...] surgery Evaluated by DR Case ([facility]) in 2020 no rheum issue found and [...] Swollen Glands: No documented in this encounter [facility] 07-31-2022 History of Present illness Narrative [...] surgery Evaluated by DR Case ([facility]) in 2020 no rheum issue found and [...] Swollen Glands: No documented in this encounter [facility] 07-10-2022 History of Present illness Narrative [...] she did get a second opinion in [place], and no change in medication was suggested [...] with paucity of objective findings on the [id number]. Abnormal tilt table test, with a combination [...] I will defer that to Dr. Link MEYERS[facility]-Jose 250 DO Work Phone: 06-12-2022 Note Pre-procedure Verifi cation and Time Out: Pre-Procedure Verification and Time Out: Procedure Locationbedside PRE-PROCEDURE Verificationcompleted TIME OUT - Final Verificationcompleted immediately prior to procedure start General Information: Anesthesia Critical Care: Non-Anesthesia Date/Time of Procedure: 12-Jun-2022 Post-Procedure Diagnosis: syncope Procedure Name: tilt table test Findings: grossly normal anatomy Procedure performed by: md Nib Finisher(s): none Estimated Blood Loss (mL): none Specimen: [...] Updated: 14-Jun-2022 11:56 by Annalee Maza) [facility] 03-24-2022 History of Present illness [...] while walking to the bathroom.She will see oil expeller operator in the near future, she had her pulmonary function test which I reviewed, there is concern for chronic asthma, but no reactive airway disease.She has 3 dogs that she had, and 1 cat at home.She is not orthostatic. She is feeling palpitations quite a bit.Results of the pulmonary function test and a [employer] was reviewed. Also reviewed stress test and [...] the results of culpable test are available. [facility] Work Phone: 03-24-2022 History of [...] while walking to the bathroom.She will see oil expeller operator in the near future, she had her pulmonary function test which I reviewed, there is concern for chronic asthma, but no reactive airway disease.She has 3 dogs that she had, and 1 cat at home.She is not orthostatic. She is feeling palpitations quite a bit.Results of the pulmonary function test and a [employer] was reviewed. Also reviewed stress test and [...] the results of culpable test are available. -[facility]-Jose 250 DO Work Phone: 02-02-2022 Miscellaneous Notes [...] P Mathai, MD documented in this encounter [facility] 01-25-2022 History of Present illness Narrative [...] February Evaluated by DR Case ([facility]) in 2020 no rheum issue found and [...] February Evaluated by DR Case ([facility]) in 2020 no rheum issue found and [...] any joints noted on exam today Discussed iw patient as follows- Regarding acute onset of [...] Irvin Hanna MD documented in this encounter [facility] 01-10-2022 Evaluation note Encounter Date Diagnosis Assessment Notes Dec, Skin rash (ICD-10 - R21) Dec, Other Transient recurrent color roving changer the knees and toes I do [...] will go ahead with her evaluation in [facility]. [facility] Other 01-17-2022 Evaluation note* Encounter Date Diagnosis [...] day as needed for pain and swelling. [facility] Other 07-01-2021 History of Present illness Narrative* [...] heart murmur and has been transferred to [facility] * There is no family history of [...] needed, treatment options, risks, benefits, and imponderables. [place] [employer] lifestyle changes and behavioral modification discussed. All questions answered in detail. Counseling over 50% visit regarding above. Patientappreciative of care. * At the end the office visit, she did report that she will be seeing an warehouse distribution specialist in [place]. We did discuss that she could hold [...] errors as software dictation application being used. [facility] [employer] [address] DO Work Phone: 1(450) 221-761308-25-2020 History of Present illness Narrative* She is [...] exposed to secondhand smoke from her mother. -[facility] Milad-Jose Cheek DO Work Phone: [phone]) 447-849007-09-2020 History of Present illness Narrative* Patient is [...] twin brother had to be taken to [facility], and has history of heart murmur. [...] [facility] Work Phone: 1(760) 787-666007-01-2020 History of Present illness Narrative* Patient is [...] twin brother had to be taken to [facility], and has history of heart [...] arise, * Sincerely, * Melodie alcaraz MD [place] [address] DO Work Phone: [phone]) [phone] History of Present illness Narrative* Patient is [...] twin brother had to be taken to [facility], and has history of heart [...] arise, * Sincerely, * Melodie alcaraz MD [facility] [employer] DO Work Phone: 1([phone]) 144-916001-01-2008 History general Narrative - Reported* Type Description Date Medical History general health good Surgical History tonsillectomy and adenoidectomy 09/2007 [facility] Other 01-01-2008 History general Narrative - Reported* Type Description Date Medical History general health good Surgical History tonsillectomy and adenoidectomy 09/2007 Surgical History right knee cleaned up scar tiss ue 2020 [facility] Other Chief complaint Narrative - ReportedMADYSON SCHMID is being seen for a cardiovascular evaluation of abnormal test(s) results and dyspnea.[facility] [employer] DO Work Phone: Chijy complaint Narrative - ReportedMADYSON SCHMID is being seen for a cardiovascular evaluation of abnormal test(s) results and dyspnea.[facility] Work Phone: Evaluation + Plan note No data available for this section [facility] Pain and swelling of knee, right- Primary Joint stiffness Stiffness of joint, not elsewhere classified, unspecified site [facility] Work Phone: Evaluation note* Diagnosis Pain and swelling of knee, right- Primary Joint stiffness Stiffness of joint, not elsewhere classified, unspecified site Inflammatory arthritis Unspecified inflammatory polyarthropathy [facility] Diagnosis Pain and swelling of knee, right- Primary Joint stiffness Stiffness of joint, not elsewhere classified, unspecified site [facility]* Diagnosis Right knee pain, unspecified chronicity- Primary [facility]* Diagnosis Chronic pain of right knee- Primary Tendinopathy of gluteal region Unspecified disorder of synovium, tendon, and bursa [facility]* Diagnosis Orthostatic lightheadedness- Primary Dizziness and giddiness [facility]* Diagnosis POTS (postural orthostatic tachycardia syndrome)- Primary Tachycardia, unspecified [facility]* Diagnosis POTS (postural orthostatic tachycardia syndrome)- Primary Tachycardia, unspecified [facility] Diagnosis POTS (postural orthostatic tachycardia syndrome)- Primary Tachycardia, unspecified Near syncope Syncope and collapse [facility]* Diagnosis Second trimester state, incidental 14 weeks gestation of [facility] Diagnosis Thumb pain, [...] Leg cramping Heartburn documented [facility] this encounter [facility] Dichorionic diamniotic twin in second trimester- Primary POTS (postural orthostatic tachycardia syndrome) Unspecified tachycardia Asthma during 20 weeks gestation of documented in this encounter [facility] Diagnosis Dichorionic diamniotic twin in second trimester- Primary POTS (postural orthostatic tachycardia syndrome) Unspecified tachycardia Asthma during 20 weeks gestation of documented in this [facility] Diagnosis Thumb pain, right- Primary [...] of state, incidental documented in this [facility] Thumb pain, right- Primary [...] heart murmur and had [facility] * There is no change [...] patient that she saw Dr. Muñiz at [facility] for second opinion regarding neurally mediated syncope and near syncope. He agreed with evaluation and management and patient opted to follow-up here at [facility] in [place]. * Zio patch August 2022. All rhythms [...] needed, treatment options, risks, benefits, and imponderables. [employer] lifestyle changes and behavioral modification discussed. All questions answered in detail. Counseling over 50% visit regarding above. Patient appreciative of care. * Grammar * Please excuse grammatical or dictation errors as software dictation application being used. [facility] 320 DO Work Phone: History of Present illness Narrative* The patient states she has been generally stable since the last visit. * Symptoms: denies chest pain at rest, denies exertional chest pain, denies dyspnea, stable fatigue, denies exercise intolerance, stable palpitations, denies edema, denies orthopnea, stable dizziness and stable orthostatic dizziness. * Disease Monitoring: [facility] 600 DO Work Phone: Hospital Discharge instructions No data available for this section [facility]Not [facility] filedocumented in this encounter [facility] filedocumented in this encounter [facility] on filedocumented in this encounter [facility]Not on filedocumented in this encounter [facility]Not on filedocumented in this encounter [facility] No data available for this section [facility] HospitalReason for referral (narrative)* Diagnostic Procedure Only (Routine) - Pending Review Specialty Diagnoses / Procedures Referred By Contac t Referred To Contact XR IMAGING Diagnoses Right knee pain, unspecified chronicity Procedures XR KNEE GENERAL 4V AP BOTH/PA BOTH/LAT/MERC RIGHT RADIOLOGIC EXAM KNEE COMPLETE 4/[place] [address] [place] [address] [place] [address] Referral ID Status Reason Start Date Expiration Date Visits Requested Visits Authorized [id number] Pending Review Auto-Generat ed Referral 3 08/04/2024 1 1 [facility] from Cj Jaimes, She gets a funny rash on her knee and toesNorth Domain Apps Other Summary Purpose Family History Unknown Family [...] or prosecute any alcohol or drug abuse patient.[facility] HospitalIn the event this information is protected by the Federal Confidentiality of Alcohol and Drug Abuse Patient Records regulations: The Federal rules restrict any use of the information to criminally investigate or prosecute any alcohol or drug abuse patient.[facility] HospitalIn the event this information is protected by the Federal Confidentiality of Alcohol and Drug Abuse Patient Records regulations: The Federal rules restrict any use of the information to criminally investigate or prosecute any alcohol or drug abuse patient.[facility] HospitalIn the event this information is protected by the Federal Confidentiality of Alcohol and Drug Abuse Patient Records regulations: The Federal rules restrict any use of the information to criminally investigate or prosecute any alcohol or drug abuse patient.[facility] HospitalIn the event this information is protected by the Federal Confidentiality of Alcohol and Drug Abuse Patient Records regulations: The Federal rules restrict any use of the information to criminally investigate or prosecute any alcohol or drug abuse patient.[facility] HospitalIn the event this information is protected by the Federal Confidentiality of Alcohol and Drug Abuse Patient Records regulations: The Federal rules restrict any use of the information to criminally investigate or prosecute any alcohol or drug abuse patient.[facility] HospitalIn the event this information is protected by the Federal Confidentiality of Alcohol and Drug Abuse Patient Records regulations: The Federal rules restrict any use of the information to criminally investigate or prosecute any alcohol or drug abuse patient.[facility] HospitalIn the event this information is protected by the Federal Confidentiality of Alcohol and Drug Abuse Patient Records regulations: The Federal rules restrict any use of the information to criminally investigate or prosecute any alcohol or drug abuse patient.[facility] HospitalIn the event this information is protected by the Federal Confidentiality of Alcohol and Drug Abuse Patient Records regulations: The Federal rules restrict any use of the information to criminally investigate or prosecute any alcohol or drug abuse patient.[facility] HospitalIn the event this information is protected by the Federal Confidentiality of Alcohol and Drug Abuse Patient Records regulations: The Federal rules restrict any use of the information to criminally investigate or prosecute any alcohol or drug abuse patient.[facility] HospitalIn the event this information is protected by the Federal Confidentiality of Alcohol and Drug Abuse Patient Records regulations: The Federal rules restrict any use of the information to criminally investigate or prosecute any alcohol or drug abuse patient.[facility] HospitalIn the event this information is protected by the Federal Confidentiality of Alcohol and Drug Abuse Patient Records regulations: The Federal rules restrict any use of the information to criminally investigate or prosecute any alcohol or drug abuse patient.[facility] HospitalIn the event this information is protected by the Federal Confidentiality of Alcohol and Drug Abuse Patient Records regulations: The Federal rules restrict any use of the information to criminally investigate or prosecute any alcohol or drug abuse patient.[facility] Reason for Visit (unrecogniz ed section [...] section and content) DATE CREATED AUTHOR 02/03/2022 [facility] DATE CREATED AUTHOR AUTHOR'S ORGANIZ ATION 06/24/2022 [facility] [facility] DATE CREATED AUTHOR AUTHOR'S ORGANIZ ATION 09/15/2022 [employer] DATE CREATED AUTHOR AUTHOR'S ORGANIZ ATION 03/16/2023 [facility] DATE CREATED AUTHOR AUTHOR'S ORGANIZ ATION 06/15/2023 [facility] DATE CREATED AUTHOR AUTHOR'S ORGANIZ ATION 07/11/2023 [facility] DATE CREATED AUTHOR AUTHOR'S ORGANIZ ATION 03/15/2024 [facility] DATE CREATED AUTHOR AUTHOR'S ORGANIZ ATION 04/15/2024 [facility] DATE CREATED AUTHOR AUTHOR'S ORGANIZ ATION 07/11/2024 [facility] DATE CREATED AUTHOR AUTHOR'S ORGANIZ ATION 07/26/2024 [facility] DATE CREATED AUTHOR AUTHOR'S ORGANIZ ATION 09/05/2024 [facility] DATE CREATED AUTHOR AUTHOR'S ORGANIZ ATION 10/18/2024 [facility] DATE CREATED AUTHOR AUTHOR'S ORGANIZ ATION 11/01/2024 [facility] DATE CREATED AUTHOR AUTHOR'S ORGANIZ ATION 11/06/2024 [facility] Care Teams (unrecognized sec tion and content) Team Status: Inactive Member Role Status Dates Ibis Renteria NP-C Primary Care Provider Activ CARLOS Dowling Attending Provider Active Team Status: Inactive Member Role Status Dates CARLOS Harley Primary Care Provider Activ venita Alcaraz MD Attending Provider Active Team Status: Inactive Member Role Status Dates JULIUS HarleyC Primary Care Provider Lilliam Alcaraz MD Attending Provider Active Álvaro Osborn MD Referring Provider Active Team Status: Active Member Role Status Dates Ibis Maggy Myra , ROOM SERVICE RUNNER-C Primary Care Provider Activ e Team Status: Inactive Member Role Status Dates Ibisniharika Renteria , ROOM SERVICE RUNNER-C Primary Care Provider Activ e Dyllan Pearce APRN Emergency Provider Active Team Status: Inactive Member Role Status Dates Ibiseren Renteria , ROOM SERVICE RUNNER-C Primary Care Provider Activ e Christina Perez , CENTER REP Attending Provider Active Team Status: Inactive Member Role Status Dates Ibis Renteria , ROOM SERVICE RUNNER-C Primary Care Provider Activ e Carlitos Nguyen Jr, DO Attending Provider Active Radiation / Chemistry Technician Relationship Specialty Start Date End Date MyraSusan tiwariica RhondaJesika, BRAKE LINING FINISHER [address] [place] [address] PCP - General Nurse Practitioner 07/09/23 Radiation / Chemistry Technician Relationship Specialty Start Date End Date Bipin Renteriassica RhondaJesika BRAKE LINING FINISHER [address] [place] [address] PCP - General Nurse Practitioner 07/09/23 Team Status: Inactive Member Role Status Dates Ibisniharika Renteria , ROOM SERVICE RUNNER-C Primary Care Provider Activ e Haris Martino , DO Emergency Provider Active Team Status: Inactive Member Role Status Dates Ibiseren Renteria , ROOM SERVICE RUNNER-C Primary Care Provider Activ e Nam Barnes , DO [facility] Attending Provider Active Radiation / Chemistry Technician Relationship Specialty Start Date End Date Jb Mandujano MD [address] [address] [place] [address] PCP - General Family Medicine 05/20/24 Osei Malik DO [address] [place] [address] Referring Physician Obstetrics and Gynecology 06/05/24 Flori Gil PA [address] [place] [address] Physician Nib Finisher Obstetrics and Gynecology 06/05/24 Radiation / Chemistry Technician Relationship Specialty Start Date End Date Nazia, Rugen M, MD [address] [facility] [address] [place] [address] PCP - General Family Medicine 05/20/24 Osei Malik, DO [address] [place] [address] Referring Physician Obstetrics and Gynecology 06/05/24 Flori Gil PA [facility] [address] Physician Nib Finisher Obstetrics and Gynecology 06/05/24 Radiation / Chemistry Technician Relationship Specialty Start Date End Date Asuncion Boateng MD [address] [place] [address] PCP - General 11/30/17 Radiation / Chemistry Technician Relationship Specialty Start Date End Date Jb Mandujano MD [address] [address] [place] [address] PCP - General Family Medicine 05/20/24 Osei Malik, DO [address] [place] [address] Referring Physician Obstetrics and Gynecology 06/05/24 Flori Gil PA [address] [place] [address] Physician Nib Finisher Obstetrics and Gynecology 06/05/24 Radiation / Chemistry Technician Relationship Specialty Start Date End Date Jb Mandujano MD [address] [place] [place] [address] PCP - General Family Medicine 05/20/24 Osei Malik, DO [address] [place] [address] Referring Physician Obstetrics and Gynecology 06/05/24 Flori Gil PA [facility] [place] [address] Physician Nib Finisher Obstetrics and Gynecology 06/05/24 Radiation / Chemistry Technician Relationship Specialty Start Date End Date Jb Mandujano MD [address] [place] [address] PCP - General Family Medicine 05/20/24 Osei Malik DO [facility] [place] [address] Referring Physician Obstetrics and Gynecology 06/05/24 Flori Gil PA [facility] [place] [address] Physician Nib Finisher Obstetrics and Gynecology 06/05/24 Radiation / Chemistry Technician Relationship Specialty Start Date End Date Asuncion Boateng MD [address] [place] [address] PCP - General 11/30/17 Radiation / Chemistry Technician Relationship Specialty Start Date End Date Jb Mandujano MD [address] [place], [place] [address] [address] PCP - General Family Medicine 05/20/24 Osei Malik DO [facility] [place] [address] Referring Physician Obstetrics and Gynecology 06/05/24 Flori Gil PA [facility] [place] [address] Physician Nib Finisher Obstetrics and Gynecology 06/05/24 Radiation / Chemistry Technician Relationship Specialty Start Date End Date Jb Mandujano MD [address] [facility] [address] [place] [address] PCP - General Family Medicine 05/20/24 Osei Malik DO [address] [place] [address] Referring Physician Obstetrics and Gynecology 06/05/24 Flori Gil PA [facility] [place] [address] Physician Nib Finisher Obstetrics and Gynecology 06/05/24 Radiation / Chemistry Technician Relationship Specialty Start Date End Date Asuncion Boateng MD [address] [place], [place] [id number] PCP - General 11/30/17 Radiation / Chemistry Technician Relationship Specialty Start Date End Date Jb Mandujano MD [address] [place] [address] PCP - General Family Medicine 05/20/24 Osei Malik DO [address] [place] [address] Referring Physician Obstetrics and Gynecology 06/05/24 Flori Gil PA [address] [place] [address] Physician Nib Finisher Obstetrics and Gynecology 06/05/24 Radiation / Chemistry Technician Relationship Specialty Start Date End Date Jb Mandujano MD [address] [facility] [address] [place] [address] PCP - General Family Medicine 05/20/24 Osei Malik DO [address] [place] [address] Referring Physician Obstetrics and Gynecology 06/05/24 Flori Gil PA [address] [place] [address] Physician Nib Finisher Obstetrics and Gynecology 06/05/24 Radiation / Chemistry Technician Relationship Specialty Start Date End Date Asuncion Boateng MD [address] [place] [address] PCP - General 11/30/17 Radiation / Chemistry Technician Relationship Specialty Start Date End Date Jb Mandujano MD [address] [facility] [address] [place] [address] PCP - General Family Medicine 05/20/24 Osei Malik DO [address] [place] [address] Referring Physician Obstetrics and Gynecology 06/05/24 Flori Gil PA [address] [place] [address] Physician Nib Finisher Obstetrics and Gynecology 06/05/24 Radiation / Chemistry Technician Relationship Specialty Start Date End Date Jb Mandujano MD [address] [facility] [address] [place] [address] PCP - General Family Medicine 05/20/24 Radiation / Chemistry Technician Relationship Specialty Start Date End Date Jb Mandujano MD [address] [facility] [address] [place] [address] PCP - General Family Medicine 05/20/24 Radiation / Chemistry Technician Relationship Specialty Start Date End Date Jb Mandujano MD [address] [facility] [address] [place] [address] PCP - General Family Medicine 05/20/24 Radiation / Chemistry Technician Relationship Specialty Start Date End Date Jb Mandujano MD [address] [facility] [address] [place] [address] PCP - General Family Medicine 05/20/24 Radiation / Chemistry Technician Relationship Specialty Start Date End Date Jb Mandujano MD [address] [facility] [address] [place] [address] PCP - General Family Medicine 05/20/24 Osei Malik, [address] [place] [address] Referring Physician Obstetrics and Gynecology 06/05/24 Flori Gil PA [address] [place] [address] Physician Nib Finisher Obstetrics and Gynecology 06/05/24 Radiation / Chemistry Technician Relationship Specialty Start Date End Date Jb Mandujano MD [address] [facility] [address] [place] [address] PCP - General Family Medicine 05/20/24 Osei Malik, DO [address] [place] [address] Referring Physician Obstetrics and Gynecology 06/05/24 Flori Gil PA [address] [place] [address] Physician Nib Finisher Obstetrics and Gynecology 06/05/24 Radiation / Chemistry Technician Relationship Specialty Start Date End Date Jb Mandujano MD [address] [facility] [address] [place] [address] PCP - General Family Medicine 05/20/24 Osei Malik DO [address] [place] [address] Referring Physician Obstetrics and Gynecology 06/05/24 Flori Gil PA [address] [place], [place] [address] [address] Physician Nib Finisher Obstetrics and Gynecology 06/05/24 Radiation / Chemistry Technician Relationship Specialty Start Date End Date Jb Mandujano MD [address] [facility] [address] [place] [address] PCP - General Family Medicine 05/20/24 Osei Malik DO [address] [place] [address] Referring Physician Obstetrics and Gynecology 06/05/24 Flori Gil PA [address] [place], [place] [address] [address] Physician Nib Finisher Obstetrics and Gynecology 06/05/24 Radiation / Chemistry Technician Relationship Specialty Start Date End Date Asuncion Boateng MD [address] [place] [address] PCP - General 11/30/17 Team Status: Inactive Member Role Status Dates Osei Malik DO Attending Provider Active Start : September 25, 2024 End: September 25, 2024 Radiation / Chemistry Technician Relationship Specialty Start Date End Date Jb Mandujano MD [address] [facility] [address] [place] [address] PCP - General Family Medicine 05/20/24 Osei Malik, DO [address] [place] [address] Referring Physician Obstetrics and Gynecology 06/05/24 Flori Gil PA [address] [place] [address] Physician Nib Finisher Obstetrics and Gynecology 06/05/24 Radiation / Chemistry Technician Relationship Specialty Start Date End Date Jb Mandujano MD [address] [place] [address] [place], [place] [id number] PCP - General Family Medicine 05/20/24 Osei Malik, DO [address] [place], [facility] Referring Physician Obstetrics and Gynecology 06/05/24 Flori Gil PA [address] [place] [address] Physician Nib Finisher Obstetrics and Gynecology 06/05/24 Radiation / Chemistry Technician Relationship Specialty Start Date End Date Asuncion Boateng MD [address] [place] [address] PCP - General 11/30/17 Radiation / Chemistry Technician Relationship Specialty Start Date End Date Jb Mandujano MD [address] [place] [address] [place] [address] PCP - General Family Medicine 05/20/24 Osei Malik, DO [address] [place] [address] Referring Physician Obstetrics and Gynecology 06/05/24 Flori Gil PA [address] [place] [address] Physician Nib Finisher Obstetrics and Gynecology 06/05/24 Radiation / Chemistry Technician Relationship Specialty Start Date End Date Jb Mandujano MD [address] [facility] [address] [place] [address] PCP - General Family Medicine 05/20/24 Osei Malik, DO [facility] [place] [address] Referring Physician Obstetrics and Gynecology 06/05/24 Flori Gil PA [facility] [place] [address] Physician Nib Finisher Obstetrics and Gynecology 06/05/24 Radiation / Chemistry Technician Relationship Specialty Start Date End Date Jb Mandujano MD [address] [address] PCP - General Family Medicine 05/20/24 Osei Malik, DO [facility] [place] [address] Referring Physician Obstetrics and Gynecology 06/05/24 Flori Gil PA [facility] [place] [address] Physician Nib Finisher Obstetrics and Gynecology 06/05/24 Goals (unrecognized section [...] BE BASED ON THE PRIMARY CLINICAL RECORDS. [employer] [facility]. provides no warranty or guarantee of the accuracy or completeness of information in this document.
[2024-11-08 13:09] VITALS: BP 122/71; PULSE 107
== END 2024-11-08 13:45 | disposition home or self-care (01) ==
LOC: FBCO 06:43 → FBC 12:55
PROVIDERS: PCP Family Medicine; Visit Provider Obstetrics & Gynecology
DX: O30.049 Twin pregnancy, dichorionic/diamniotic, unspecified trimester (principal)
CPT/HCPCS: 59025

== ENCOUNTER 2024-11-12 01:18 | Outpatient (OUT) | payer OTHER, MEDICAID, SELFPAY ==
--- OUTSIDE RECORDS SUMMARY | 2024-11-12 01:21 | XMS_ITS | CCD ---
Author Organization [facility] Care Team Providers Care Field Ring Assembler Name Role Phone Unavailable Primary Care Provider UnavailChristina Aranda Unavailable Ok Mckeon Unavailable Ibis Renteria Unavailable [phone] Unavailable Unavailable CARLOS Renteria Primary Care Provider MD Melodie Alcaraz Attending Provider MD Álvaro Osborn Referring Provider [phone] CARLOS Davidson Attending Provider JOHNNY Pearce Emergency Provider Dr. Annalee Maza Attending Unavailab Dr. Melodie Dawson Referring Unavailable Blas, MsJesika Winter Primary Care Unavail able Dr. Annalee [...] Dr. Sewell Referring Unavailable Blas, . Ibis Winter Primary Care Unavail able JOSE ARMANDO GREY Attending Unavailable Blas Ibis GOODSON Primary Care Provider Blas, SOFTWARE DESIGNER-C Ibis Maggy Primary Care Provider DO Haris Martino Emergency Provider DO Nam Barnes Attending Provider [phone] JB MANDUJANO Primary Care Physician [phone] Shirley, Celeste Admitting Unavailable Rinkes, Celeste Attending Unavailable Jocelin FELIX Attending Unavailable Mae, CERTIFIED HEALTH EDUCATION SPECIALIST Krista L Attending Unavailable Mae, CERTIFIED HEALTH EDUCATION SPECIALIST Krista L Attending Unavailable Unavailable Primary Care Provider Unavailabl e Rinkes, Celeste Attending Unavailable Rinkes, Celeste Admitting Unavailable Rinkes, Celeste Attending Unavailable Rinkes, Celeste Admitting Unavailable Jb Mandujano MD Primary Care Provider Helena DO, Osei Unavailable Flori Sam [facility] Unavailable Blas Ibis Ann Primary Care Unavailable Celeste Watson Attending Unavailable Celeste Watson Admitting Unavailable Bumagina Zak HAMiya Primary Care Provider SANTIAGO, AURORA Attending Unavailable SANTIAGO, AURORA Referring Unavailable SANTIAGO, AURORA Referring Unavailable SANTIAGO, AURORA Referring Unavailable SANTIAGO, AURORA Referring Unavailable NOBLE, JYOTI Attending Unavailable NOBLE, JYOTI Attending Unavailable JOIE SEAMAN Attending Unavailable NOBLE JYOTI Attending Unavailable Helena DO, Osei Attending Provider [phone] HELENA, OSEI R Referring Unavailable BUMAGINA, ANDER Primary Care Unavailable HAMMAD HATCHIM Attending Unavailable HELENA, OSEI R Referring Unavailable BUMAGINA, ANDER Primary Care Unavailable HELENA, OSEI R Referring Unavailable BUMAGINA, ANDER Primary Care Unavailable HELENA, OSEI R Referring Unavailable BUMAGINA, ANDER Primary Care Unavailable Helena, Osei Attending Unavailable Helena, Osei Admitting Unavailable HELENA, OSEI Attending Unavailable HELENA, SOEI Attending Unavailable HELENA, OSEI Attending Unavailable CELESTE WATSON E Attending Unavailable CELESTE WATSON E Attending [...] / oxyCODONE; Translations: [acetaminophen-o xycodone] Drug Allergy [facility] [place] Comment on above: no narcotics, GI ups et Chlorhexidine (1 source) Chlorhexidine; Translations: [chlorhexidine topical] Drug Allergy Itching [facility] Corticosteroids (1 source) predniSONE; Translations: [prednisone] Drug Allergy [facility] (15 sources) Morphinan opioid; Translations: [OPIOIDS - MORPHINE ANALOGUES] Propensity to adverse reactions to drug 01-26-20 Other: See Comments [facility] (20 sources) predniSONE; Translations: [predniSONE] Drug Allergy 01-26-20 Other: See Comments, Dizziness [facility] (20 sources) prednisoLONE; Translations: [prednisolone] Drug Allergy 01-11-20 22 GI Disturbance [facility] Other (15 sources) Fludrocortisone; Translations: [Florinef TABS] Drug Allergy Nausea [facility] [facility] DO Work Phone: (20 sources) Midodrine; Translations: [midodrine] Drug Allergy 08-13-20 23 GI bleeding [facility] (3 sources) Acetaminophen / oxyCODONE; Translations: [Percocet] Drug Allergy [facility] (4 sources) Chlorhexidine; Translations: [chlorhexidine topical] Drug Allergy Itching [facility] (7 sources) Acetaminophen / oxyCODONE; Translations: [acetaminophen-o xycodone] Drug Allergy 07-07-20 24 GI Disturbance [facility] Comment on above: no narcotics, GI ups et (20 sources) Acetaminophen / oxyCODONE; Translations: [OXYCODONE-ACETA MINOPHEN] Drug Allergy 02-26-20 24 [facility] (20 sources) Chlorhexidine; Translations: [CHLORHEXIDINE] Drug Allergy 02-21-20 23 Itching [facility] Work Phone: (20 sources) Fludrocortisone; Translations: [FLUDROCORTISONE ] Drug Allergy 07-26-20 22 Nausea [facility] (20 sources) Prednisone Allergy to substance 02-18-20 23 Dizziness [facility] (1 source) predniSONE Drug Allergy 06-08-20 23 [facility] Repository Medications Current Medications Medication Drug Class(es) Dates Sig (Normalized) Sig (Original) [id number] 200 actuat albuterol 0.09 mg/actuat metered dose [...] this medication. 14 tablet 08/07/2024 08/14/2024 Active [place] (No Known Home Meds) (1 source) Start: 09-15-2 023 [place] (No Known Home Meds) Active June 08, 2023 12:00am omeprazole 40 mg delayed release oral capsule (20 sources) Proton Pump Inhibitor Start: 025 End: 026 take 1 capsule by mouth before mealtime omeprazole (PriLOSEC) [address] capsule Indications: Heartburn Take 1 capsule (40 mg) by mouth in the morning. Take before meals. Do not crush or chew.. 30 capsule 10/29/2024 10/29/2025 Active Start: 08-05-2024 End: 08-05-2025 take 1 capsule by mouth before mealtime omeprazole (PriLOSEC) [address] capsule Indications: Heartburn Take 1 capsule (20 mg) by mouth in the morning. Take before meals. Do not crush or chew.. 30 capsule 11 08/05/2024 10/29/2024 Discontinued (Ineffective) Start: 12-11-2023 take 1 capsule by [facility] once daily omeprazole 40 mg Cap-DR 40 [...] Start: 08-01-2022 take 1 capsule by mo [facility] three times daily Droxidopa 100 MG [...] daily Quantity: 90 Refills: 3 Ordered: 15-Jun-2022 Kieran HAM Melodie Start : 15-Jun-2022 Active new start 120 [...] topical ointment (4 sources) Corticosteroid Start: 11-30-19 22 Triamcinolone Acetonide 0.1 % External Ointment Quantity: [...] WITH AUTO DIFFon BASOPHILS ABSOLUTE AUTO 0 [facility] Basophils/100 WBC (Bld) 0.3 % 0.2 - 2.0 % [facility] Eosinophils/100 WBC (Bld) 0.6 % Low 0.9 - 7.0 % [facility] Erythrocyte distribution width (RBC) [Ratio] 13.2 % 11.0 - 15.0 % [facility] Hematocrit (Bld) [Volume fraction] 38.7 % 36.0 - 48.0 % [facility] Hemoglobin (Bld) [Mass/Vol] 12.9 g/dL 12.0 - 16.0 g/dL [facility] IMMATURE GRANULOCYTES ABS AUTO 0.05 High [facility] Immature granulocytes/100 WBC (Bld) 0.5 % 0.0 - 0.5 % [facility] Interpretation and review of laboratory results Abnormal [facility] LYMPHOCYTES ABSOLUTE AUTO 1.4 [facility] Lymphocytes/100 WBC (Bld) 13.2 % Low 20.5 - 60.0 % [facility] MCH (RBC) [Entitic mass] 28.4 pg 26.7 - 34.0 pg [facility] MCHC (RBC) [Mass/Vol] 33.3 g/dL 29.9 - 35.2 g/dL [facility] MCV (RBC) [Entitic vol] 85.2 fL 81.0 - 99.0 fL [facility] MONOCYTES ABSOLUTE AUTO 0.6 [facility] Monocytes/100 WBC (Bld) 5.7 % 1.7 - 12.0 % [facility] NEUTROPHILS ABSOLUTE AUTO 8.4 High [facility] Neutrophils/100 WBC (Bld) 79.7 % High 43.0 - 75.0 % [facility] Platelet mean volume (Bld) [Entitic vol] 10.3 fL 9.5 - 13.5 fL [facility] TBH EO # 0.1 [facility] TB PLT 151 [facility] RBC 4.54 [facility] WBC 10.5 [facility] No Panel InformationOrdered By: Radiologist Radiology on 11-06-2024 [facility] Work Phone: No Panel Informationon 11-06 Radiology Study observation (narrative) [facility] US OB BPP W NON-STRESS on 11-06-[address] [address] Ultrasound Report Signed Patient: MADYSON MAI MR#: [id number] : 2000 Acct:[id number] Age/Sex: 23 / F ADM Date: 11/05/24 Loc: US Attending Dr: Osei Malik D.O. Ordering Physician: Osei Malik D.O. Date of Service: 11/05/24 Procedure(s): US OB BPP w non-stress Accession Number(s): [id number] cc: JB MANDUJANO ; Osei Malik D.O. The [place] [address] Patient Name: MADYSON MAI MRN: [facility]:[id number] date: 2000 Sex: F Assigned Patient Location: US Current Patient Location: US Accession/Order Number: [id number] Exam Date: 11/05/2024 17:46 Report Date: 11/06/2024 [...] M.D. Signed By: 11/06/24 0748 DD/ TD/TT: Sampling Theory Teacher: [facility] Radiology, Radiologi MD billy - 11/06/2024 [place] [address] Ultrasound Report Signed Patient: MADYSON MAI MR#: [id number] : 2000 Acct:[id number] Age/Sex: 23 / F ADM Date: 11/05/24 Loc: US Attending Dr: Osei Malik D.O. Ordering Physician: Osei Malik D.O. Date of Service: 11/05/24 Procedure(s): US OB BPP w non-stress Accession Number(s): [id number] cc: JB MANDUJANO ; Osei Malik D.O. [place] [address] Patient Name: MADYSON MAI MRN: [id number] date: 2000 Sex: F Assigned Patient Location: US Current Patient Location: US Accession/Order Number: [id number] Exam Date: 11/05/2024 17:46 Report Date: 11/06/2024 [...] M.D. Signed By: 11/06/24 0748 DD/ TD/TT: Sampling Theory Teacher: [place] [address] Ultrasound Report Signed Patient: AMDYSON MAI MR#: [id number] : 2000 Acct:[id number] Age/Sex: 23 / F ADM Date: 11/05/24 Loc: US Attending Dr: Osei Malik D.O. Ordering Physician: Osei Malik D.O. Date of Service: 11/05/24 Procedure(s): US OB BPP w non-stress Accession Number(s): [id number] cc: JB MANDUJANO ; Osei Malik D.O. [place] [address] Patient Name: MADYSON MAI MRN: [id number] date: 2000 Sex: F Assigned Patient Location: US Current Patient Location: US Accession/Order Number: [id number] Exam Date: 11/05/2024 17:46 Report Date: 11/06/2024 [...] Signed By: 11/06/24 0748 DD/ 0745 TD/TT: Sampling Theory Teacher: [facility] Radiology, Radiologyelitza cervantes MD - 11/06/2024 [place] [address] Ultrasound Report Signed Patient: MADYSON MAI MR#: [id number] : 2000 Acct:[id number] Age/Sex: 23 / F ADM Date: 11/05/24 Loc: US Attending Dr: Osei Malik D.O. Ordering Physician: Osei Malik D.O. Date of Service: 11/05/24 Procedure(s): US OB BPP w non-stress Accession Number(s): [id number] cc: JB MANDUJANO ; Osei Malik D.O. The [address] [address] Patient Name: MADYSON MAI MRN: [facility]:[id number] date: 2000 Sex: F Assigned Patient Location: US Current Patient Location: US Accession/Order Number: [id number] Exam Date: 11/05/2024 17:46 Report Date: 11/06/2024 [...] Chan Small M.D. Signed By: 11/06/2448 DD/ TD/TT: Sampling Theory Teacher: [facility] [employer] No Panel InformationOrdered By: Radiologist Radiology on 10-30-2024 [facility] Work Phone: No Panel Informationon 10-30 Radiology Study observation (narrative) [facility] US OB BPP W NON-STRESS on 10-30-2024 [place] [address] Ultrasound Report Signed Patient: MADYSON MAI MR#: [id number] : 2000 Acct:[id number] Age/Sex: 23 / F ADM Date: 10/29/24 Loc: US Attending Dr: Osei Malik D.O. Ordering Physician: Osei Malik D.O. Date of Service: 10/29/24 Procedure(s): US OB BPP w non-stress Accession Number(s): [id number] cc: JB MANDUJANO ; Osei Malik D.O. [place] [address] Patient Name: MADYSON MAI MRN: [id number] date: 2000 Sex: F Assigned Patient Location: [facility] Current Patient Location: Accession/Order Number: [id number] Exam Date: 10/29/2024 17:40 Report Date: 10/30/2024 [...] M.D. Signed By: 10/30/2433 DD/ 9 TD/TT: Sampling Theory Teacher: [facility] Radiology, Radiologi MD billy - 10/30/2024 [place] [address] Ultrasound Report Signed Patient: MADYSON MAI MR#: [id number] : 2000 Acct:[id number] Age/Sex: 23 / F ADM Date: 10/29/24 Loc: US Attending Dr: Osei Malik D.O. Ordering Physician: Osei Malik D.O. Date of Service: 10/29/24 Procedure(s): US OB BPP w non-stress Accession Number(s): [id number] cc: JB MANDUJANO ; Osei Malik D.O. The [place] [id number] Patient Name: MADYSON MAI MRN: [facility]:[id number] date: 2000 Sex: F Assigned Patient Location: [facility] Current Patient Location: Accession/Order Number: [id number] Exam Date: 10/29/2024 17:40 Report Date: 10/30/2024 [...] M.D. Signed By: 10/30/24732 DD/ 9 TD/TT: Sampling Theory Teacher: [place] [address] Ultrasound Report Signed Patient: MADYSON MAI MR#: [id number] : 2000 Acct:[id number] Age/Sex: 23 / F ADM Date: 10/29/24 Loc: US Attending Dr: Osei Malik D.O. Ordering Physician: Osei Malik D.O. Date of Service: 10/29/24 Procedure(s): US OB BPP w non-stress Accession Number(s): [id number] cc: JB MANDUJANO ; Osei Malik D.O. [place] [address] Patient Name: MADYSON MAI MRN: [id number] date: 2000 Sex: F Assigned Patient Location: [facility] Current Patient Location: Accession/Order Number: [id number] Exam Date: 10/29/2024 17:40 Report Date: 10/30/2024 [...] M.D. Signed By: 10/30/2433 DD/ 9 TD/TT: Sampling Theory Teacher: [facility] Radiology, Radiologi MD billy - 10/30/2024 [place] [address] Ultrasound Report Signed Patient: MADYSON MAI MR#: [id number] : 2000 Acct:[id number] Age/Sex: 23 / F ADM Date: 10/29/24 Loc: US Attending Dr: Osei Malik D.O. Ordering Physician: Osei Malik D.O. Date of Service: 10/29/24 Procedure(s): US OB BPP w non-stress Accession Number(s): [id number] cc: JB MANDUJANO ; Osei Malik D.O. The [place] [address] Patient Name: MADYSON MAI MRN: [facility]:[id number] date: 2000 Sex: F Assigned Patient Location: [facility] Current Patient Location: Accession/Order Number: [id number] Exam Date: 10/29/2024 17:40 Report Date: 10/30/2024 [...] Signed By: 10/30/24 0733 DD/ 0730 TD/TT: Sampling Theory Teacher: [facility] Urinalysis macro (dipstick) panel (U)on 10-29-2024 Bilirubin, UA Negative Negative - 4(70) +++ mg/dL [facility] Blood, UA Negative Negative - 50 Vasu/mcL [facility] Clarity, UA Clear [facility] Color, UA Yellow [facility] Glucose, UA Positive Negative - 1999(110) ++++ mg/dL [facility] Comment on above: 100 MG Interpretation and review of laboratory results Abnormal [facility] Ketones, UA Negative Negative - 160(16) ++++ mg/dL [facility] Leukocytes, UA Positive Negative - 500+++ Conrad/mcL [facility] Comment on above: SMALL Nitrite, UA Negative Negative - Positive [facility] pH, UA 7 5 - 9 [facility] Protein, UA Negative Negative - 2000(20) ++++ mg/dL [facility] Spec Grav, UA 1.01 1 - 1.03 [facility] Urobilinogen, UA 0.2 0.2 - 12 mg/dL [facility] CTA Chest vessels WO and W c ontrast Luiz 10-27-2024 [place] [address] CT Scan Report Signed Patient: MADYSON MAI MR#: [id number] : 2000 Acct:[id number] Age/Sex: 23 / F ADM Date: Loc: [facility] 251-[address]: Osei Malik D.O. Ordering Physician: Osei Malik D.O. Date of Service: 10/27/24 Procedure(s): CT angio chest Accession Number(s): [id number] cc: JB MANDUJANO [place] [id number] Patient Name: MADYSON MAI MRN: [id number] date: 2000 Sex: F Assigned Patient Location: [facility] Current Patient Location: [facility] Accession/Order Number: [id number] Exam Date: 10/27/2024 15:20 Report Date: 10/27/2024 [...] Signed By: 10/27/24 1556 DD/ 1554 TD/TT: Sampling Theory Teacher: [facility] Radiology, Radiologyelitza cervantes MD - 10/27/2024 [place] [address] CT Scan Report Signed Patient: MADYSON MAI MR#: [id number] : 2000 Acct:[id number] Age/Sex: 23 / F ADM Date: Loc: [facility] 251-[address]: Osei Malik D.O. Ordering Physician: Osei Malik D.O. Date of Service: 10/27/24 Procedure(s): CT angio chest Accession Number(s): [id number] cc: JB MANDUJANO [place] [address] Patient Name: MADYSON MAI MRN: [facility]:[id number] date: 2000 Sex: F Assigned Patient Location: [facility] Current Patient Location: [facility] Accession/Order Number: [id number] Exam Date: 10/27/2024 15:20 Report Date: 10/27/2024 [...] M.D. Signed By: 10/27/241555 DD/ 53 TD/TT: Sampling Theory Teacher: [facility] Radiology Study observation (narrative) [facility] CTA Chest vessels WO and W c ontrast IVOrdered By: Radiologist Radiology on 10-27-2024 [facility] [employer] Work Phone: ECG 12-LEADon 10-27-2024 [place] [address] Electrocardiograph Report Signed Patient: MADYSON MAI MR#: [id number] : 2000 Acct:[id number] Age/Sex: 23 / F ADM Date: Loc: [place] [address]: Osei Malik D.O. Ordering Physician: Osei Malik D.O. Date of Service: 10/27/24 Procedure(s): ECG 12 lead Accession Number(s): [id number] cc: [facility] Test Date: 2024-10-27 Pat Name: MADYSON MAI Department: Room: [facility] Gender: Female Insurance Plan Specialist: : 2000 Requested By: OSEI MALIK Order Number: [id number] Reading MD: SURYA MEJÍA Measurements Intervals [place] Rate: 98 P: 36 NH: 153 QRS: 19 QRSD: 98 T: 28 QT: 353 QTc: 451 Interpretive Statements SINUS RHYTHM No previous ECG available for comparison Electronically Signed On 10-27-2024 20:49:34 EST by SURYA MEJÍA Dictated By: Surya Mejía D.O. Signed By: 10/27/242048 DD/ 54 TD/TT: Sampling Theory Teacher: [facility] Radiology, Radiologi MD billy - 10/27/2024 [place] [address] Electrocardiograph Report Signed Patient: MADYSON MAI MR#: [id number] : 2000 Acct:[id number] Age/Sex: 23 / F ADM Date: Loc: [facility] 251- Attending Dr: Osei Malik D.O. Ordering Physician: Osei Malik D.O. Date of Service: 10/27/24 Procedure(s): ECG 12 lead Accession Number(s): [id number] cc: The [facility] Test Date: 2024-10-27 Pat Name: MADYSON MAI Department: Room: [facility] Gender: Female Insurance Plan Specialist: : 2000 Requested By: OSEI MALIK Order Number: [id number] Reading MD: SURYA MEJÍA Measurements Intervals [place] Rate: 98 P: 36 NH: 153 QRS: 19 QRSD: 98 T: 28 QT: 353 QTc: 451 Interpretive Statements SINUS RHYTHM No previous ECG available for comparison Electronically Signed On 10-27-2024 20:49:34 EST by SURYA MEJÍA Dictated By: Surya Mejía D.O. Signed By: 10/27/242048 DD/ 1555 TD/TT: Sampling Theory Teacher: [facility] Radiology Study observation (narrative) [facility] ECG 12-LEADOrdered By: Radio logist Radiology on 10-27-2024 [facility] Work Phone: [facility] UA (CLEAN/CATCH) COTTON PULLER/YOUSIF RO IF IND.on 10-27-2024 BILIRUBIN URINE Negative NEGATIVE [facility] BLOOD URINE Negative NEGATIVE [facility] Clarity (U) CLEAR CLEAR [facility] Color (U) LT. YELLOW YELLOW [facility] GLUCOSE URINE UA 500 mg/dL Abnormal NEGATIVE [facility] Interpretation and review of laboratory results Abnormal [facility] Ketones Ql (U) Negative NEGATIVE mg/dL [facility] Leukocyte esterase Test strip Ql (U) SMALL Abnormal NEGATIVE [facility] NITRITE URINE Negative NEGATIVE [facility] pH (U) 6.5 [pH] 5.0 - 9.0 [facility] PROTEIN URINE Negative NEG/TRACE mg/dL [facility] SPECIFIC GRAVITY URINE 1.020 1.005 - 1.025 [facility] URINE MICROSCOPIC INDICATED YES [facility] UROBILINOGEN URINE 1.0 EU/dL 0.2 - 1.0 EU/dL [facility] No Panel InformationOrdered By: Radiologist Radiology on 10-23-2024 [facility] Work Phone: No Panel Informationon 10-23 Radiology Study observation (narrative) [facility] US OB BPP W NON-STRESS on 10-23-2024 [place] [address] Ultrasound Report Signed Patient: MADYSON MAI MR#: [id number] : 2000 Acct:[id number] Age/Sex: 23 / F ADM Date: 10/22/24 Loc: US Attending Dr: Osei Malik D.O. Ordering Physician: Osei Malik D.O. Date of Service: 10/22/24 Procedure(s): US OB BPP w non-stress Accession Number(s): [id number] cc: JB MANDUJANO ; Osei Malik D.O. [place] [id number] Patient Name: MADYSON MAI MRN: [id number]:[id number] date: 2000 Sex: F Assigned Patient Location: [facility] Current Patient Location: Accession/Order Number: [id number] Exam Date: 10/22/2024 17:05 Report Date: 10/23/2024 [...] Signed By: 10/23/24 0745 DD/ 0742 TD/TT: Sampling Theory Teacher: [facility] Radiology, Radiologi MD billy - 10/23/2024 [place] [address] Ultrasound Report Signed Patient: MADYSON MAI MR#: [id number] : 2000 Acct:[id number] Age/Sex: 23 / F ADM Date: 10/22/24 Loc: US Attending Dr: Osei Malik D.O. Ordering Physician: Osei Malik D.O. Date of Service: 10/22/24 Procedure(s): US OB BPP w non-stress Accession Number(s): [id number] cc: JB MANDUJANO ; Osei Malik D.O. The [place] [address] Patient Name: MADYSON MAI MRN: [facility]:[id number] date: 2000 Sex: F Assigned Patient Location: [facility] Current Patient Location: Accession/Order Number: [id number] Exam Date: 10/22/2024 17:05 Report Date: 10/23/2024 [...] Small M.D. Signed By: 10/23/2445 DD/ TD/TT: Sampling Theory Teacher: [facility] [place] [address] Ultrasound Report Signed Patient: MADYSON MAI MR#: [id number] : 2000 Acct:[id number] Age/Sex: 23 / F ADM Date: 10/22/24 Loc: US Attending Dr: Osei Malik D.O. Ordering Physician: Osei Malik D.O. Date of Service: 10/22/24 Procedure(s): US OB BPP w non-stress Accession Number(s): [id number] cc: JB MANDUJANO ; Osei Malik D.O. [place] [address] Patient Name: MADYSON MAI MRN: [id number] date: 2000 Sex: F Assigned Patient Location: [facility] Current Patient Location: Accession/Order Number: [id number] Exam Date: 10/22/2024 17:05 Report Date: 10/23/2024 [...] Small M.D. Signed By: 10/23/2445 DD/ TD/TT: Sampling Theory Teacher: [facility] Radiology, Radiologyelitza cervantes MD - 10/23/2024 [place] [address] Ultrasound Report Signed Patient: MADYSON MAI MR#: [id number] : 2000 Acct:[id number] Age/Sex: 23 / F ADM Date: 10/22/24 Loc: US Attending Dr: Osei Malik D.O. Ordering Physician: Osei Malik D.O. Date of Service: 10/22/24 Procedure(s): US OB BPP w non-stress Accession Number(s): [id number] cc: JB MANDUJANO ; Osei Malik D.O. The [place] [id number] Patient Name: MADYSON MAI MRN: [facility]:[id number] date: 2000 Sex: F Assigned Patient Location: [facility] Current Patient Location: Accession/Order Number: [id number] Exam Date: 10/22/2024 17:05 Report Date: 10/23/2024 [...] Small M.D. Signed By: 10/23/2445 DD/ TD/TT: Sampling Theory Teacher: [facility] Urinalysis macro (dipstick) panel (U)on 10-15-2024 Bilirubin, UA Negative Negative - 4(70) +++ mg/dL [facility] Blood, UA Negative Negative - 50 Vasu/mcL [facility] Clarity, UA Clear [facility] Color, UA Yellow [facility] Glucose, UA Positive Negative - 1999(110) ++++ mg/dL [facility] Comment on above: 500 Interpretation and review of laboratory results Abnormal [facility] Ketones, UA Negative Negative - 160(16) ++++ mg/dL [facility] Leukocytes, UA Positive Negative - 500+++ Conrad/mcL [facility] Comment on above: small Nitrite, UA Negative Negative - Positive [facility] pH, UA 6 5 - 9 [facility] Protein, UA Trace Negative - 2000(20) ++++ mg/dL [facility] Spec Grav, UA 1.02 1 - 1.03 [facility] Urobilinogen, UA 0.2 0.2 - 12 mg/dL [facility] Urinalysis macro (dipstick) panel (U)on 10-02-2024 Bilirubin, UA Negative Negative - 4(70) +++ mg/dL [facility] Blood, UA Negative Negative - 50 Vasu/mcL [facility] Clarity, UA Clear [facility] Color, UA Yellow [facility] Glucose, UA Negative Negative - 2000(110) ++++ mg/dL [facility] Interpretation and review of laboratory results Abnormal [facility] Ketones, UA Positive Negative - 160(16) ++++ mg/dL [facility] Comment on above: 40 Leukocytes, UA Trace Negative - 500+++ Conrad/mcL [facility] Nitrite, UA Negative Negative - Positive [facility] pH, UA 6 5 - 9 [facility] Protein, UA Positive Negative - 2000(20) ++++ mg/dL [facility] Comment on above: 30 Spec Grav, UA 1.03 1 - 1.03 [facility] Urobilinogen, UA 0.2 0.2 - 12 mg/dL [facility] TBH UA (CLEAN/CATCH) COTTON PULLER/YOUSIF RO IF IND.on 09-25-2024 BILIRUBIN URINE Negative NEGATIVE [facility] BLOOD URINE Negative NEGATIVE [facility] Clarity (U) CLEAR CLEAR [facility] Color (U) LT. YELLOW YELLOW [facility] GLUCOSE URINE UA 250 mg/dL Abnormal NEGATIVE [facility] Interpretation and review of laboratory results Abnormal [facility] Ketones Ql (U) Negative NEGATIVE mg/dL [facility] Leukocyte esterase Test strip Ql (U) SMALL Abnormal NEGATIVE [facility] NITRITE URINE Negative NEGATIVE [facility] pH (U) 6.0 [pH] 5.0 - 9.0 [facility] PROTEIN URINE Negative NEG/TRACE mg/dL [facility] SPECIFIC GRAVITY URINE 1.020 1.005 - 1.025 [facility] URINE MICROSCOPIC INDICATED YES [facility] UROBILINOGEN URINE 0.2 EU/dL 0.2 - 1.0 EU/dL [facility] Urine Cultureon 09-25-2024 Bacteria identified Cx Nom (U) <9,000 colonies/ml mixed bacterial skin contaminants 2 Days PERFORMED BY: [place] [address] PATHOLOGIST CELLULOID TRIMMER KARMA BUCK M.D. Normal [facility] Comment on above: Performed By: #### C UU #### [address] Urinalysis macro (dipstick) panel (U)on 09-18-2024 Bilirubin, UA Negative Negative - 4(70) +++ mg/dL [facility] Blood, UA Negative Negative - 50 Vasu/mcL [facility] Clarity, UA Clear [facility] Color, UA Yellow [facility] Glucose, UA Positive Negative - 1999(110) ++++ mg/dL [facility] Comment on above: 100 Interpretation and review of laboratory results Abnormal [facility] Ketones, UA Negative Negative - 160(16) ++++ mg/dL [facility] Leukocytes, UA Positive Negative - 500+++ Conrad/mcL [facility] Comment on above: small Nitrite, UA Negative Negative - Positive [facility] pH, UA 7 5 - 9 [facility] Protein, UA Trace Negative - 1999(20) ++++ mg/dL [facility] Spec Grav, UA 1.02 1 - 1.03 [facility] Urobilinogen, UA 0.2 0.2 - 12 mg/dL [facility] Urinalysis macro (dipstick) panel (U)on 09-03-2024 Bilirubin, UA Negative Negative - 4(70) +++ mg/dL [facility] Blood, UA Negative Negative - 50 Vasu/mcL [facility] Clarity, UA Clear [facility] Color, UA Yellow [facility] Glucose, UA Many Negative - 1999(110) ++++ mg/dL [facility] Interpretation and review of laboratory results Abnormal [facility] Ketones, UA Positive Negative - 160(16) ++++ mg/dL [facility] Leukocytes, UA Positive Negative - 500+++ Conrad/mcL [facility] Nitrite, UA Negative Negative - Positive [facility] pH, UA 6.5 5 - 9 [facility] Protein, UA Moderate Negative - 1999(20) ++++ mg/dL [facility] Spec Grav, UA 1.025 1 - 1.03 [facility] Urobilinogen, UA 0.2 0.2 - 12 mg/dL [facility] GLUCOSE TOLERANCE 3 HOURon 1 11-02-2023 GLUCOSE TOLERANCE 3 HOUR High mg/dL [facility] Comment on above: GLU FAST 86 (<95) Co l: 09/01/24 0818 GLU 1HR 162 (<180) Col: 09/01/24 0919 GLU 2HR 156H (<155) Col: 09/01/24 1019 GLU 3HR 110 (<140) Col: 09/01/24 1119 Interpretation and review of laboratory results Abnormal [facility] ALL CBC WITH AUTO DIFFon BASOPHILS ABSOLUTE AUTO 0 [facility] Basophils/100 WBC (Bld) 0.2 % 0.2 - 2.0 % [facility] Eosinophils/100 WBC (Bld) 0.7 % Low 0.9 - 7.0 % [facility] Erythrocyte distribution width (RBC) [Ratio] 13.6 % 11.0 - 15.0 % [facility] Hematocrit (Bld) [Volume fraction] 32.9 % Low 36.0 - 48.0 % [facility] Hemoglobin (Bld) [Mass/Vol] 11.1 g/dL Low 12.0 - 16.0 g/dL [facility] IMMATURE GRANULOCYTES ABS AUTO 0.11 High [facility] Immature granulocytes/100 WBC (Bld) 1.1 % High 0.0 - 0.5 % [facility] Interpretation and review of laboratory results Abnormal [facility] LYMPHOCYTES ABSOLUTE AUTO 1.3 [facility] Lymphocytes/100 WBC (Bld) 13 % Low 20.5 - 60.0 % [facility] MCH (RBC) [Entitic mass] 29.6 pg 26.7 - 34.0 pg [facility] MCHC (RBC) [Mass/Vol] 33.7 g/dL 29.9 - 35.2 g/dL [facility] MCV (RBC) [Entitic vol] 87.7 fL 81.0 - 99.0 fL [facility] MONOCYTES ABSOLUTE AUTO 0.6 [facility] Monocytes/100 WBC (Bld) 5.5 % 1.7 - 12.0 % [facility] NEUTROPHILS ABSOLUTE AUTO 7.9 High [facility] Neutrophils/100 WBC (Bld) 79.5 % High 43.0 - 75.0 % [facility] Platelet mean volume (Bld) [Entitic vol] 10.3 fL 9.5 - 13.5 fL [facility] TBH EO # 0.1 [facility] PLT [address] [facility] RBC 3.75 Low [facility] TB WBC 9.9 [facility] IGP,APTIMA HPV,AGE GDLNon AGE GDLN ACOG TESTING Note . [facility] Comment on above: TESTS RESULT FLAG UN ITS REF RANGE LAB Clinician Provided Cytology Information Source.............Cervix No. of containers..01 ThinPrep Vial Age Sahra Reddy... FLAG LEGEND: L-Low Normal,H-High Normal,LL-Alert Low,HH-Alert High <-Panic Low,>-Panic High,A-Abnormal,AA-Critical Abnormal Performed at: 01 =G [facility] [address] [place] [address] Toya Wilson MD, IGP, RFX APTIMA HPV ASCU Note . [facility] Comment on above: TESTS RESULT FLAG UN ITS REF RANGE LAB DIAGNOSIS: 02 NEGATIVE FOR INTRAEPITHELIAL LESION OR MALIGNANCY. Specimen adequacy: 02 Satisfactory for evaluation. No endocervical component is identified. Performed by: 02 Imelda Miranda Supervisor [employer] (ASCP) . 02 Note: Note 02 The [...] <-Panic Low,>-Panic High,A-Abnormal,AA-Critical Abnormal Performed at: [address] [address] Toya Wilson MD, Performed at: = - [address] [id number] Studio Manager: Toya Wilson MD, Phone: [phone] Performed at: [address] [id number] Studio Manager: Toya Wilson MD, Phone: [phone] [facility] C[facility] AFP, SERUM, OPEN SPINA BIFID Aon 08-13-2024 AFP MOM 2.24 . [facility] AFP VALUE 103.1 ng/mL . [facility] COMMENT: Comment . [facility] Comment on above: Joyce Reina , Ph.D., [facility] Director References: Available Upon Request. Multiples Of Median Cutoffs For AFP Elevations Harrington 2.5 Black 2.8 IDD 2.0 Twins 4.5 Abbreviation Definitions IDD - Insulin Dep Diabetes OSBR - Open Spina Bifida Risk For further inquiries contact [employer] [facility] at [phone]. This test was developed and its performance characteristics determined by [employer]. It has not been cleared or approved by the Food and Drug Administration. Performed at: [facility] [address] [facility], [place], [place] [id number] Studio Manager: Angel Regan [facility], Phone: [phone] GEST. AGE ON COLLECTION DATE 20.3 . weeks [facility] GESTAT. AGE BASED ON LMP . [facility] Comment on above: Recalculations are n ot recommended when gestational dating by LMP and ultrasound are within 10 days. INSULIN DEP DIABETES No . [facility] INTERPRETATION Comment . [facility] Comment on above: Interpretation: Scre [...] Customer Services to discuss available options. The [employer] recommends amniocentesis be offered to women age 35 and older. [age] [facility] MULTIPLE GESTATION Twins . [facility] OSBR RISK 1 IN 1081 . [facility] RACE . [facility] RESULTS Report . [facility] TEST RESULTS: Negative . [facility] WEIGHT 219 . 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 3-vessel view. 7-wpdodk-ewvwhlx view. Interventricular septum. Diaphragm. Abdomen Right renal [...] Nuchal fold. F (more content not included)... [facility] Radiology Study observation (narrative) [facility] US for pregnancyOrdered By: Radiologist Radiology on 08-13-2024 [facility] Work Phone: RECURRENT VAGINITIS (HTRX)on 08-07-2024 ATOPOBIUM VAGINAE 29.356 Abnormal [facility] ATOPOBIUM VAGINAE Detected Abnormal [facility] BVAB 2,3 (BACTERIAL VAGINOSIS ASSOCIATED BACTERIA 2, 3); MOBILUNCUS SPP 0 [facility] BVAB 2,3 (BACTERIAL VAGINOSIS ASSOCIATED BACTERIA 2, 3); MOBILUNCUS SPP Not detected [facility] SANTHOSH ALBICANS, PARAPSILOSIS, TROPICALIS 0 [facility] SANTHOSH ALBICANS, PARAPSILOSIS, TROPICALIS Not detected [facility] SANTHOSH GLABRATA 0 [facility] SANTHOSH GLABRATA Not detected [facility] SANTHOSH KRUSEI 0 [facility] SANTHOSH KRUSEI Not detected [facility] CHLAMYDIA TRACHOMATIS 0 NOM S [facility] CHLAMYDIA TRACHOMATIS Not detected N [facility] GARDNERELLA VAGINALIS 0 NOM S Healthcare GARDNERELLA VAGINALIS Not detected N [facility] Interpretation and review of laboratory results Abnormal [facility] MEGASPHAERA (TYPES 1, 2) 0 [facility] MEGASPHAERA (TYPES 1, 2) Not [facility] MYCOPLASMA GENITALIUM 0 NOM S [facility] MYCOPLASMA GENITALIUM Not detected N [facility] NEISSERIA GONORRHOEAE 0 NOM S [facility] NEISSERIA GONORRHOEAE Not detected N [facility] TRICHOMONAS VAGINALIS 0 NOM S [facility] TRICHOMONAS VAGINALIS Not detected N S [facility] Urinalysis macro (dipstick) panel (U)on 08-05-2024 Bilirubin, UA Negative Negative - 4(70) +++ mg/dL [facility] Blood, UA Negative Negative - 50 Vasu/mcL [facility] Clarity, UA Clear [facility] Color, UA Yellow [facility] Glucose, UA Negative Negative - 1999(110) ++++ mg/dL [facility] Interpretation and review of laboratory results Normal [facility] Ketones, UA Negative Negative - 160(16) ++++ mg/dL [facility] Leukocytes, UA Negative Negative - 500+++ Conrad/mcL [facility] Nitrite, UA Negative Negative - Positive [facility] pH, UA 5.5 5 - 9 [facility] Protein, UA Negative Negative - 1999(20) ++++ mg/dL [facility] Spec Grav, UA 1.02 1 - 1.03 [facility] Urobilinogen, UA 1.0 0.2 - 12 mg/dL [facility] Urinalysis macro (dipstick) panel (U)on 07-03-2024 Bilirubin, UA Negative Negative - 4(70) +++ mg/dL [facility] Blood, UA Negative Negative - 50 Vasu/mcL [facility] Clarity, UA Clear [facility] Color, UA Yellow [facility] Glucose, UA Positive Negative - 1999(110) ++++ mg/dL [facility] Comment on above: 500 Interpretation and review of laboratory results Abnormal [facility] Ketones, UA Negative Negative - 160(16) ++++ mg/dL [facility] Leukocytes, UA Negative Negative - 500+++ Conrad/mcL [facility] Nitrite, UA Negative Negative - Positive [facility] pH, UA 6.0 5 - 9 [facility] Protein, UA Negative Negative - 1999(20) ++++ mg/dL [facility] Spec Grav, UA 1.015 1 - 1.03 [facility] Urobilinogen, UA 0.2 0.2 - 12 mg/dL [facility] Urinalysis macro (dipstick) panel (U)Ordered By: Ibis Sandoval on 06-04-2024 Bilirubin, UA Negative Negative - 4(70) +++ mg/dL [facility] Blood, UA Positive Negative - 50 Vasu/mcL [facility] Comment on above: trace-intact Clarity, UA Clear [facility] Color, UA Yellow [facility] Glucose, UA Negative Negative - 1999(110) ++++ mg/dL [facility] Interpretation and review of laboratory results Abnormal [facility] Ketones, UA Negative Negative - 160(16) ++++ mg/dL [facility] Leukocytes, UA Trace Negative - 500+++ Conrad/mcL [facility] Nitrite, UA Negative Negative - Positive [facility] pH, UA 5.5 5 - 9 [facility] Protein, UA Negative Negative - 1999(20) ++++ mg/dL [facility] Spec Grav, UA 1.005 1 - 1.03 [facility] Urobilinogen, UA 0.2 0.2 - 12 mg/dL [facility] ALL CBC WITH AUTO DIFFon BASOPHILS ABSOLUTE AUTO 0.0 [facility] Basophils/100 WBC (Bld) 0.5 % 0.2 - 2.0 % [facility] Eosinophils/100 WBC (Bld) 0.5 % Low 0.9 - 7.0 % [facility] Erythrocyte distribution width (RBC) [Ratio] 11.9 % 11.0 - 15.0 % [facility] IMMATURE GRANULOCYTES ABS AUTO 0.03 [facility] Immature granulocytes/100 WBC (Bld) 0.4 % 0.0 - 0.5 % [facility] Interpretation and review of laboratory results Abnormal [facility] LYMPHOCYTES ABSOLUTE AUTO 1.8 [facility] Lymphocytes/100 WBC (Bld) 23.3 % 20.5 - 60.0 % [facility] MCH (RBC) [Entitic mass] 29.7 pg 26.7 - 34.0 pg [facility] MCHC (RBC) [Mass/Vol] 34.9 g/dL 29.9 - 35.2 g/dL [facility] MCV (RBC) [Entitic vol] 85.1 fL 81.0 - 99.0 fL [facility] MONOCYTES ABSOLUTE AUTO 0.5 [facility] Monocytes/100 WBC (Bld) 6.3 % 1.7 - 12.0 % [facility] NEUTROPHILS ABSOLUTE AUTO 5.4 [facility] Neutrophils/100 WBC (Bld) 69.0 % 43.0 - 75.0 % [facility] Platelet mean volume (Bld) [Entitic vol] 10.3 fL 9.5 - 13.5 fL [facility] TBH EO # 0.0 [facility] PLT [address] [facility] RBC 4.55 [facility] WBC 7.8 [facility] Laboratory - Hematology and Cell countson 05-24-2024 Hematocrit (Bld) [Volume fraction] 38.7 % [facility] Hemoglobin (Bld) [Mass/Vol] 13.5 g/dL [facility] No Panel Informationon 05-24 [facility] HCG ( test) Ql (U)o n 05-23-2024 Interpretation and review of laboratory results Abnormal [facility] Preg Test, Ur Positive [facility] Urinalysis macro (dipstick) panel (U)on 05-23-2024 Bilirubin, UA Negative Negative - 4(70) +++ mg/dL [facility] Blood, UA Negative Negative - 50 Vasu/mcL [facility] Clarity, UA Clear [facility] Color, UA Yellow [facility] Glucose, UA Negative Negative - 1999(110) ++++ mg/dL [facility] Interpretation and review of laboratory results Normal [facility] Ketones, UA Negative Negative - 160(16) ++++ mg/dL [facility] Leukocytes, UA Negative Negative - 500+++ Conrad/mcL [facility] Nitrite, UA Negative Negative - Positive [facility] pH, UA 7.0 5 - 9 [facility] Protein, UA Negative Negative - 1999(20) ++++ mg/dL [facility] Spec Grav, UA 1.025 1 - 1.03 [facility] Urobilinogen, UA 1.0 0.2 - 12 mg/dL [facility] CHEMISTRYOrdered By: SYSTEM SYSTEM on 04-12-2024 Progesterone [...] Progesterone Lvl 31.70 ng/mL Invalid Interpretation Code [facility] Comment on above: Result Comment: 'F N ON FOLLICULAR = 0.10 - 0.60' 'LUTEAL = 3.00 - 17.5' 'MIDLUTEAL = 3.30 - 18.6' 'POST-MENOPAUSE = 0.10 - 0.40' '-FIRST TRIMESTER = 8.30 - 66.5' 'SECOND TRIMESTER = 18.9 - 66.1' 'THIRD TRIMESTER = 35.8 - 312.4' 'MALES = 0.14 - 2.06' Performed By: #### 2 [id number] #### [facility] [address] [place] [address] CHEMISTRYOrdered By: SYSTEM SYSTEM on 03-14-2024 Progesterone [...] Consent for Treatmenton 02-23 Consent for Treatment [id number]#[id number] Normal [facility] Physician Orderon 03-14-2024 Physician Order [id number]#[id number] Normal [facility] Progesteroneon 03-14-2024 Progesterone Lvl 16.15 ng/mL Invalid Interpretation Code [facility] Comment on above: Result Comment: 'F N ON FOLLICULAR = 0.10 - 0.60' 'LUTEAL = 3.00 - 17.5' 'MIDLUTEAL = 3.30 - 18.6' 'POST-MENOPAUSE = 0.10 - 0.40' '-FIRST TRIMESTER = 8.30 - 66.5' 'SECOND TRIMESTER = 18.9 - 66.1' 'THIRD TRIMESTER = 35.8 - 312.4' 'MALES = 0.14 - 2.06' Performed By: #### 2 [id number] #### [facility] [address] [place] [address] Ambulatory Visit Summaryon 0 12-11-2023 Ambulatory Visit [...] 11:20 AM EDT With: Krista Daley Where: [facility] [place] Normal [facility] Family Medicine Office/Clini c Noteon 12-11-2023 Family Medicine Office/Clinic Note HPI Staff Madyson is a 23 year old female presenting to [facility] Establish Care: History: Any previous diagnosis: POTS (3/8/24) History of seeing any specialist: Jyoti Dickey [facility] for the POTS,, 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 Class 1 obesity due to excess calories in adult (E66.09: Other obesity due to excess calories) see above Ordered: omeprazole, 40 mg = 1 cap(s), Oral, Daily, # 30 cap(s), Refills(s) 1, Pharmacy: [facility], 168.3, cm, 12/11/23 13:07:00 EDT, Height/Length Dosing, 93.6, kg, 12/11/23 13:07:00 EDT, Weight Dosing 4. Nonsmoker (Z78.9: Other specified health status) continue not smoking Ordered: omeprazole, 40 mg = 1 cap(s), Oral, Daily, # 30 cap(s), Refills(s) 1, Pharmacy: [facility] 1155, 168.3, cm, 12/11/23 13:07:00 EDT, Height/Length [...] 03/05/2002 Recorded (more content not included)... Normal [facility] Comment on above: Result Comment: Elec tronically Signed By: Krista Daley\.br\Date and Time Signed: 12/11/23 13:32 EDT CNOVon 11-30-2023 CNOV Office Visit (NENMMN ) ----- MADYSON MAI ([id number]) 2 F Date Time Provider Department 11/30/23 10:00 AM JYOTI DICKEY During your visit today, we recorded the following information about you: Pulse Blood pressure Weight Height 84/minute 118/79 93 kg 1.651 m Jyoti Dickey PA-C 11/30/2023 11:14 AM Signed [facility] New Patient Evaluation [...] experienced LOC while walking up the stairs. [place] prodromal symptoms including lightheadedness and tunnel vision. [...] (more content not included)... Normal [facility] ECHOon 11-12-2023 Echocardiography Echocardiography Rep ort: Transthoracic Echo [facility] A17 Date of service: 11/12/2023 1:08:10 PM TRANSMISSION Ordering physician: AURORA SANTIAGO Indication: Initial evaluation [...] * * Final * * * CC [facility] : [id number] Normal [facility] CNOVon 10-10-2023 CNOV Office Visit (NEADMN ) ----- MADYSON MAI ([id number]) 2 F Date Time Provider Department 10/10/23 2:00 PM AURORA SANTIAGO During your visit today, we recorded the following information about you: Pulse Blood pressure Weight Height 108/minute 119/85 93 kg 1.651 m Aurora Santiago PA-C 10/10/2023 4:33 PM Signed [facility] New Patient Evaluation [...] (more content not included)... Normal [facility] Quantiferon-TB Plus (Client Incubated)on 07-26-2023 Gamma interferon background IA Qn (Bld) 0.01 International_Unit/mL Invalid Interpretation Code [facility] Comment on above: Performed By: #### 1 [id number] #### [facility] [address] [place] [address] M. tuberculosis stim IFN-g by CD4+ CD8+ T-cells Qn (Bld) 0.30 International_Unit/mL Invalid Interpretation Code [facility] Comment on above: Performed By: #### 1 [id number], [id number] #### [facility] [address] [place] [address] M. tuberculosis stim IFN-g by CD4+ T-cells Qn (Bld) 0.23 International_Unit/mL Invalid Interpretation Code [facility] Comment on above: Performed By: #### 1 [id number], [id number] #### [facility] [address] [place] [address] M. tuberculosis stim IFN-g Ql (Bld) [Interp] Negative Invalid Interpretation Code Negative [facility] Comment on above: Result Comment: No r [...] interferon gamma. Chemiluminescence immunoassay methodology Performed at: [facility] [address], [place] [id number] PhD Rubio Vinson Performed By: #### 1 [id number], [id number], [id number], [id number] #### [facility] [address] [place] [address] Mitogen stimulated gamma interferon Qn (Bld) >10.00 Invalid Interpretation Code [facility] Comment on above: Performed By: #### 1 [id number] #### [facility] [address] [place] [address] Service comment (Unsp spec) [Interp] Comment Invalid Interpretation Code [facility] Comment on above: Result Comment: Link [email or web address] [...] for the test. Performed By: #### 1 [id number] #### [facility] [address] [place] [address] Hep Bs Abon 07-25-2023 HBV surface Ab Ql (S) Non-Reactive Invalid Interpretation Code [facility] Comment on above: Result Comment: Non Reactive: Inconsistent with immunity, less than 10 mIU/mL Reactive: Consistent with immunity, greater than 9.9 mIU/mL Performed at: [facility] [address], [place] [id number] PhD Rubio Vinson Performed By: #### 1 [id number] #### [facility] [address] [place] [address] Measles/Mumps/Rubella Immuni tyon 07-25-2023 MeV IgG IA Qn (S) 34.3 A unit/mL Invalid Interpretation Code Immune >16.4 [facility] Comment on above: Result Comment: Nega tive <13.5 Equivocal 13.5 - 16.4 Positive >16.4 Presence of antibodies to Rubeola is presumptive evidence of immunity except when acute infection is suspected. Performed By: #### 1 [id number] #### [facility] [address] [place] [address] MuV IgG IA Qn (S) <9.0 Low Immune >10.9 [facility] Comment on above: Result Comment: Nega tive <9.0 Equivocal 9.0 - 10.9 Positive >10.9 A positive result generally indicates past exposure to Mumps virus or previous vaccination. Performed at: [facility] [id number] PhD Rubio Vinson Performed By: #### 1 [id number] #### [facility] [address] [place] [address] Rubella virus IgG Qn (S) 1.53 [IU]/mL Invalid Interpretation Code Immune >0.99 [facility] Comment on above: Result Comment: Non- immune <0.90 Equivocal 0.90 - 0.99 Immune >0.99 Performed By: #### 1 [id number] #### [facility] [address] [place] [address] Varic IgGon 07-25-2023 VZV IgG IA Qn (S) 475 Invalid Interpretation Code Immune >165 [facility] Comment on above: Result Comment: Nega tive <135 Equivocal 135 - 165 Positive >165 A positive result generally indicates exposure to the pathogen or administration of specific immunoglobulins, but it is not indication of active infection or stage of disease. Performed at: [facility] [address] [place] [address] [id number] PhD Rubio Vinson Performed By: #### 1 [id number], [id number], [id number], [id number] #### [facility] [address] [address] CNOVon 07-10-2023 CNOV Office Visit (ORFWHP ) ----- MADYSON SCHMID ([id number]) 2 F Date Time Provider Department 07/10/23 9:40 AM JOSE ARMANDO GREY ORFWHP During your visit today, we recorded the following information about you: Jose Armando Grey DO 07/10/2023 10:08 AM Signed [facility] Office Visit Documentation Note [facility] Sports Medicine Orthopaedic and Rheumatologic [place] HISTORY OF PRESENT ILLNESS (HPI) CHIEF COMPLAINT / REASON FOR VISIT SERVICE DATE: July 10, 2023 PCP: No primary care provider on file. Madyson Schmid is here today at request of Dr. Jose Armando Schmid specifically for consultation of my opinion in regards to the chief complaint listed below. Correspondence will be shared today via the [employer] electronic health record or through regular mail, [...] She need to consider PT or personal counselor. Reaction knee brace Consider [place] toradol, did discuss orthobiologics Follow up: Films prior to visit: Written instructions (see patient instructions) and verbal health education given to patient. Patient verbalizes understanding and agrees with the treatment plan. Jose Armando Grey D.O. [facility] Orthopaedic and Rheumatologic Commissary Clerk, [place] [facility] [employer] Program Team Physician, [facility] Baseball [employer] Consulting Physician, [place] Martin Nagel, Veneer Clipper [phone] Referring Provider: SELF [200] Allergies As of [...] Level of (more content not included)... [facility] Tobacco Screening.on 023 Adult depression screening assessment No [facility] [address] DO Work Phone: Tobacco use status CPHS b) No [facility] DO Work Phone: Activated partial thrombopla stin time (aPTT) in platelet poor plasma by coagulation aOrdered By: Haris Martino on 06-08-2023 aPTT Coag (PPP) [Time] 28.9 s 25.1-36.5 [facility] Comment on above: A hematocrit value g reater than 55% may lead to inaccurate results in coagulation testing. Patients having hematocrit values >55% require a special collection tube for coagulation studies. Please contact the laboratory at [phone] for redraw instructions. Alanine aminotransferase [En zymatic activity/volume] in Serum or PlasmaOrdered By: Haris Martino on 06-08-2023 ALT [Catalytic activity/Vol] 42 U/L 7-52 [facility] Albumin [Mass/volume] in Ser um or Plasma by Bromocresol green (BCG) dye binding methoOrdered By: Haris Martino on 06-08-2023 Albumin BCG dye [Mass/Vol] 4.6 g/dL 3.5-5.7 [facility] Alkaline phosphatase [Enzyma tic activity/volume] in Serum or PlasmaOrdered By: Haris Martino on 06-08-2023 ALP [Catalytic activity/Vol] 78 U/L 34-104 [facility] Aspartate aminotransferase [ Enzymatic activity/volume] in Serum or PlasmaOrdered By: Haris Martino on 06-08-2023 AST [Catalytic activity/Vol] 22 U/L 13-39 [facility] Automated erythrocytes count in urine sediment (number/area)Ordered By: Haris Martino on 06-08-2023 RBC Auto (Urine sed) [#/Area] 5-9 [HPF] 0-4 [facility] Automated leukocytes count i n urine sediment (number/area)Ordered By: Haris Martino on 06-08-2023 WBC Auto (Urine sed) [#/Area] 3-4 [HPF] 0-4 [facility] Basophils Auto (Bld) [#/Vol] Ordered By: Haris Martino on 06-08-2023 Basophils (Bld) [#/Vol] 0.1 10*3/uL 0.0-0.2 [facility] Basophils/100 WBC Auto (Bld) Ordered By: Haris Martino on 06-08-2023 Basophils/100 WBC (Bld) 1.0 % . [facility] Bilirubin Test strip Ql (U)O rdered By: Haris Martino on 06-08-2023 Bilirubin Ql (U) Negative Negative [facility] Bilirubin.direct [Mass/volum e] in Serum or PlasmaOrdered By: Haris Martino on 06-08-2023 Bilirubin.direct [Mass/Vol] 0.10 mg/dL 0.03-0.18 [facility] Bilirubin.total [Mass/volume ] in Serum or PlasmaOrdered By: Haris Martino on 06-08-2023 Bilirubin [Mass/Vol] 0.4 mg/dL 0.3-1.0 [facility] Calcium [Mass/volume] in Ser um or PlasmaOrdered By: Haris Martino on 06-08-2023 Calcium [Mass/Vol] 9.4 mg/dL 8.6-10.3 [facility] Carbon dioxide, total [Moles /volume] in Serum or PlasmaOrdered By: Haris Martino on 06-08-2023 CO2 [Moles/Vol] 29.3 mmol/L 21.0-31.0 [facility] Chloride [Moles/volume] in S colin or PlasmaOrdered By: Haris Martino on 06-08-2023 Chloride [Moles/Vol] 104 mmol/L 98-107 [facility] Color Auto (U)Ordered By: Terrell red Salena on 06-08-2023 Color (U) Yellow Yellow [facility] Creatine kinase [Enzymatic a ctivity/volume] in Serum or PlasmaOrdered By: Haris Martino on 06-08-2023 CK [Catalytic activity/Vol] 55 U/L 30-223 [facility] Creatinine [Mass/volume] in Serum or PlasmaOrdered By: Haris Martino on 06-08-2023 Creatinine [Mass/Vol] 0.64 mg/dL 0.60-1.20 [facility] Eosinophils Auto (Bld) [#/Vo l]Ordered By: Haris Martino on 06-08-2023 Eosinophils (Bld) [#/Vol] 0.1 10*3/uL 0.0-0.45 [facility] Eosinophils/100 WBC Auto (Bl d)Ordered By: Haris Martino on 06-08-2023 Eosinophils/100 WBC (Bld) 0.8 % . [facility] Erythrocyte distribution wid th Auto (RBC) [Ratio]Ordered By: Haris Martino on 06-08-2023 Erythrocyte distribution width (RBC) [Ratio] 12.9 % 11.9-15.3 [facility] Fibrin D-dimer [Presence] in Platelet poor plasma by Latex agglutinationOrdered By: Haris Martino on 06-08-2023 Fibrin D-dimer LA Ql (PPP) < 200 ng/mL 0-243 [facility] Comment on above: The reference range [...] coagulation studies. Please contact the laboratory at [phone] for redraw instructions. Globulin Calc (S) [Mass/Vol] Ordered By: Haris Martino on 06-08-2023 Globulin (S) [Mass/Vol] 2.9 g/dL [facility] Glucose [Mass/volume] in Ser um or PlasmaOrdered By: Haris Martino on 06-08-2023 Glucose [Mass/Vol] 79 mg/dL 70-100 [facility] Comment on above: ADA recommended refe rence rangeRandom Glucose Reference Range is dependent on time and content of last meal. Glucose of more than 200 mg/dL in a nonstressed, ambulatory subject supports the diagnosis of Diabetes Mellitus. HCG ( test) IA.rapi d Ql (U)Ordered By: Haris Martino on 06-08-2023 HCG ( test) Ql (U) Negative [facility] Hematocrit Auto (Bld) [Volum e fraction]Ordered By: Haris Martino on 06-08-2023 Hematocrit (Bld) [Volume fraction] 42.4 % 34.0-46.4 [facility] Hemoglobin [Mass/volume] in BloodOrdered By: Haris Martino 06-08-2023 Hemoglobin (Bld) [Mass/Vol] 14.5 g/dL 11.8-15.4 [facility] INR in Platelet poor plasma by Coagulation assayOrdered By: Haris Martino on 06-08-2023 INR Coag (PPP) [Relative time] 1.0 {INR} [facility] Comment on above: INR Therapeutic Rang [...] on 06-08-2023 Ketones (U) [Mass/Vol] Negative Negative [facility] - UrinalysisOrder ed By: Haris Martino on 06-08-2023 Hyaline casts LM Ql (Urine sed) 0-8 [LPF] 0-8 [facility] Leukocytes [#/volume] correc matt for nucleated erythrocytes in Blood by Automated counOrdered By: Haris Martino on 06-08-2023 WBC corrected for nucl RBC Auto (Bld) [#/Vol] 8.3 10*3/uL 3.8-11.6 [facility] Lymphocytes Auto (Bld) [#/Vo l]Ordered By: Haris Martino on 06-08-2023 Lymphocytes (Bld) [#/Vol] 3.0 10*3/uL 1.00-4.8 [facility] Lymphocytes/100 WBC Auto (Bl d)Ordered By: Haris Martino on 06-08-2023 Lymphocytes/100 WBC (Bld) 36.0 % . [facility] MCH Auto (RBC) [Entitic mass ]Ordered By: Haris Martino on 06-08-2023 MCH (RBC) [Entitic mass] 29.4 pg 24.7-34.3 [facility] MCHC Auto (RBC) [Mass/Vol]Or dered By: Haris Martino on 06-08-2023 MCHC (RBC) [Mass/Vol] 34.2 g/dL 32.0-35.0 [facility] MCV Auto (RBC) [Entitic vol] Ordered By: Haris Martino on 06-08-2023 MCV (RBC) [Entitic vol] 85.9 fL 80-100 [facility] Monocyte distribution width [Entitic volume] in Blood by AutomatedOrdered By: Haris Martino on 06-08-2023 Monocyte distribution width Auto (Bld) [Entitic vol] 18.39 % 0.00-20.00 [facility] Monocytes Auto (Bld) [#/Vol] Ordered By: Haris Martino on 09-15-2023 Monocytes (Bld) [#/Vol] 0.5 10*3/uL 0.0-0.8 [facility] Monocytes/100 WBC Auto (Bld) Ordered By: Haris Martino on 06-08-2023 Monocytes/100 WBC (Bld) 6.6 % . [facility] Natriuretic peptide B [Mass/ Vol]Ordered By: Haris Martino on 06-08-2023 Natriuretic peptide B (Bld) [Mass/Vol] 9.0 pg/mL 5-100 [facility] Neutrophils Auto (Bld) [#/Vo l]Ordered By: Haris Martino on 06-08-2023 Neutrophils (Bld) [#/Vol] 4.6 10*3/uL 1.8-7.7 [facility] Neutrophils/100 WBC Auto (Bl d)Ordered By: Haris Martino on 06-08-2023 Neutrophils/100 WBC (Bld) 55.6 % . [facility] Nitrite Test strip Ql (U)Ord ered By: Haris Martino on 06-08-2023 Nitrite Ql (U) Negative Negative [facility] No Panel InformationOrdered By: Haris Martino on 06-08-2023 Estimated GFR (CKD-EPI) > 60.0 mL/Min [facility] Creatinine Clearance (Chem 155.50 [facility] Nucleated erythrocytes [Pres ence] in Blood by Automated countOrdered By: Haris Martino on 06-08-2023 Nucleated RBC Auto Ql (Bld) 0.1 /100{WBC} 0-0.5 [facility] Platelet mean volume Auto (B ld) [Entitic vol]Ordered By: Haris Martino on 06-08-2023 Platelet mean volume (Bld) [Entitic vol] 8.2 fL 6.3-10.7 [facility] Platelets Auto (Bld) [#/Vol] Ordered By: Haris Martino on 06-08-2023 Platelets (Bld) [#/Vol] 225 10*3/uL 150-450 [facility] Potassium [Moles/volume] in Serum or PlasmaOrdered By: Haris Martino on 06-08-2023 Potassium [Moles/Vol] 4.0 mmol/L 3.5-5.1 [facility] Protein Auto test strip (U) [Mass/Vol]Ordered By: Haris Martino on 06-08-2023 Protein (U) [Mass/Vol] Negative Negative [facility] Protein [Mass/volume] in Ser um or PlasmaOrdered By: Haris Martino on 06-08-2023 Protein [Mass/Vol] 7.5 g/dL 6.4-8.9 [facility] Prothrombin time (PT)Ordered By: Haris Martino on 06-08-2023 PT Coag (PPP) [Time] 12.2 s 9.0-12.9 [facility] Comment on above: A hematocrit value g reater than 55% may lead to inaccurate results in coagulation testing. Patients having hematocrit values >55% require a special collection tube for coagulation studies. Please contact the laboratory at [phone] for redraw instructions. RBC Auto (Bld) [#/Vol]Ordere d By: Haris Martino on 06-08-2023 RBC (Bld) [#/Vol] 4.94 10*6/uL 3.60-5.00 [facility] Serum or plasma albumin/glob ulin mass ratioOrdered By: Haris Martino on 06-08-2023 Albumin/Globulin [Mass ratio] 1.6 {ratio} [facility] Serum or plasma anion gap de terminationOrdered By: Haris Martino on 06-08-2023 Anion gap [Moles/Vol] 9.7 mmol/L 6.0-15.0 [facility] Serum or plasma non-glucuron idated bilirubin measurement (mass/volume)Ordered By: Haris Martino on 06-08-2023 Bilirubin.indirect [Mass/Vol] 0.3 mg/dL [facility] Sodium [Moles/volume] in Ser um or PlasmaOrdered By: Haris Martino on 06-08-2023 Sodium [Moles/Vol] 139 mmol/L 136-145 [facility] Specific gravity Auto test s trip (U) [Rel density]Ordered By: Haris Martino on 06-08-2023 Specific gravity (U) [Rel density] 1.015 1.001-1.03 0 [facility] Squamous epithelial cells de tection in urine sediment by light microscopyOrdered By: Haris Martino on 06-08-2023 Epithelial cells.squamous LM Ql (Urine sed) 3-4 [HPF] 0-2 [facility] Troponin I.cardiac [Mass/vol ume] in Serum or Plasma by Detection limit <= 0.01 ng/Ordered By: Haris Mratino on 06-08-2023 Troponin I.cardiac DL <= 0.01 ng/mL [Mass/Vol] < 2.3 pg/mL 0.0-15.0 [facility] Urea nitrogen [Mass/volume] in Serum or PlasmaOrdered By: Haris Martino on 06-08-2023 Urea nitrogen [Mass/Vol] 10 mg/dL 7-25 [facility] Urine bacteria detection by automated methodOrdered By: Haris Martino on 06-08-2023 Bacteria Auto Ql (U) 1+ None Seen [facility] Urine clarity by refractomet ry automatedOrdered By: Haris Martino on 06-08-2023 Clarity Refractometry automated (U) Clear Clear [facility] Urine glucose measurement by automated test strip (mass/volume)Ordered By: Haris Martino on 06-08-2023 Glucose Auto test strip (U) [Mass/Vol] Normal mg/dL Normal [facility] Urine hemoglobin detection b y automated test stripOrdered By: Haris Martino on 06-08-2023 Hemoglobin Auto test strip Ql (U) Negative Negative [facility] Urine leukocyte esterase det ection by automated test stripOrdered By: Haris Martino on 06-08-2023 Leukocyte esterase Auto test strip Ql (U) 1+ Negative [facility] Urobilinogen Auto test strip (U) [Mass/Vol]Ordered By: Haris Martino on 06-08-2023 Urobilinogen (U) [Mass/Vol] Normal mg/dL Normal [facility] WBC Auto (Bld) [#/Vol]Ordere d By: Haris Martino on 06-08-2023 WBC (Bld) [#/Vol] 8.3 10*3/uL 3.8-11.6 [facility] pH Auto test strip (U)Ordere d By: Haris Martino on 06-08-2023 pH (U) 6.5 [pH] 5.0-9.0 [facility] Alanine aminotransferase [En zymatic activity/volume] in Serum or PlasmaOrdered By: Carlitos Nguyen on 04-25-2023 ALT [Catalytic activity/Vol] 18 U/L 7-52 [facility] Albumin [Mass/volume] in Ser um or Plasma by Bromocresol green (BCG) dye binding methoOrdered By: Carlitos Nguyen on 04-25-2023 Albumin BCG dye [Mass/Vol] 4.8 g/dL 3.5-5.7 [facility] Alkaline phosphatase [Enzyma tic activity/volume] in Serum or PlasmaOrdered By: Carlitos Nguyen on 04-25-2023 ALP [Catalytic activity/Vol] 73 U/L 34-104 [facility] Aspartate aminotransferase [ Enzymatic activity/volume] in Serum or PlasmaOrdered By: Carlitos Nguyen on 04-25-2023 AST [Catalytic activity/Vol] 18 U/L 13-39 [facility] Bilirubin.total [Mass/volume ] in Serum or PlasmaOrdered By: Carlitos Nguyen on 04-25-2023 Bilirubin [Mass/Vol] 0.5 mg/dL 0.3-1.0 [facility] Calcium [Mass/volume] in Ser um or PlasmaOrdered By: Carlitos Nguyen on 04-25-2023 Calcium [Mass/Vol] 9.9 mg/dL 8.6-10.3 [facility] Carbon dioxide, total [Moles /volume] in Serum or PlasmaOrdered By: Carlitos Nguyen on 04-25-2023 CO2 [Moles/Vol] 25.9 mmol/L 21.0-31.0 [facility] Chloride [Moles/volume] in S colin or PlasmaOrdered By: Carlitos Ngyuen on 04-25-2023 Chloride [Moles/Vol] 105 mmol/L 98-107 [facility] Cholesterol [Mass/volume] in Serum or PlasmaOrdered By: Carlitos Nguyen on 04-25-2023 Cholesterol [Mass/Vol] 208 mg/dL 140-200 [facility] Comment on above: Chol less than 200 m g/dl low riskChol 201-239 mg/dl borderline riskChol 240 mg/dl and greater high risk Cholesterol in LDL Calc [Mas s/Vol]Ordered By: Carlitos Nguyen on 04-25-2023 Cholesterol in LDL [Mass/Vol] 136 mg/dL 0-100 [facility] Comment on above: LDL ATP III CLASSIFI CATIONLDL less than 100 mg/dL OptimalLDL 100-129 mg/dL Near or above optimalLDL 130-159 mg/dL Borderline highLDL 160-189 mg/dL HighLDL greater than 189 mg/dL Very high Cholesterol in VLDL Calc [Ma ss/Vol]Ordered By: Carlitos Nguyen on 04-25-2023 Cholesterol in VLDL [Mass/Vol] 16 mg/dL [facility] Creatinine [Mass/volume] in Serum or PlasmaOrdered By: Carlitos Nguyen on 04-25-2023 Creatinine [Mass/Vol] 0.81 mg/dL 0.60-1.20 [facility] Globulin Calc (S) [Mass/Vol] Ordered By: Carlitos Nguyen on 04-25-2023 Globulin (S) [Mass/Vol] 2.6 g/dL [facility] Glucose [Mass/volume] in Ser um or PlasmaOrdered By: Carlitos Nguyen on 04-25-2023 Glucose [Mass/Vol] 84 mg/dL 70-100 [facility] No Panel InformationOrdered By: Carlitos Nguyen on 04-25-2023 Estimated GFR (CKD-EPI) > 60.0 mL/Min [facility] Creatinine Clearance (Chem N/A [facility] Potassium [Moles/volume] in Serum or PlasmaOrdered By: Carlitos Nguyen on 04-25-2023 Potassium [Moles/Vol] 4.3 mmol/L 3.5-5.1 [facility] Comment on above: Hemolysis is present at a level that could interfere with the result. Protein [Mass/volume] in Ser um or PlasmaOrdered By: Carlitos Nguyen on 04-25-2023 Protein [Mass/Vol] 7.4 g/dL 6.4-8.9 [facility] Serum or plasma albumin/glob ulin mass ratioOrdered By: Carlitos Nguyen on 04-25-2023 Albumin/Globulin [Mass ratio] 1.8 {ratio} [facility] Serum or plasma anion gap de terminationOrdered By: Carlitos Nguyen on 04-25-2023 Anion gap [Moles/Vol] 12.4 mmol/L 6.0-15.0 [facility] Serum or plasma high density lipoprotein (HDL) cholesterol measurementOrdered By: Carlitos Nguyen on 04-25-2023 Cholesterol in HDL [Mass/Vol] 55 mg/dL 23-92 [facility] Comment on above: HDL CHOL ATP-III CLA SSIFICATION Cardiovascular RiskHDL > or equal to 60 mg/dL LOWHDL < 40 mg/dL HIGH Serum or plasma total choles terol/high density lipoprotein (HDL) cholesterol mass ratOrdered By: Carlitos Nguyen on 04-25-2023 Cholesterol.total/Chol esterol in HDL [Mass ratio] 3.8 {ratio} <5.0 [facility] Sodium [Moles/volume] in Ser um or PlasmaOrdered By: Carlitos Nguyen on 04-25-2023 Sodium [Moles/Vol] 139 mmol/L 136-145 [facility] Triglyceride [Mass/volume] i n Serum or PlasmaOrdered By: Carlitos Nguyen on 04-25-2023 Triglyceride [Mass/Vol] 83 mg/dL 0-149 [facility] Comment on above: TRIG ATP III CLASSIF ICATIONTRIG less than 150 mg/dL NormalTRIG 150-199 mg/dL Borderline highTRIG 200-500 mg/dL High TRIG greater than 500 mg/dL Very highStandard traceable to the Center for Disease Conrtrol and Prevention (CDC) test method. Urea nitrogen [Mass/volume] in Serum or PlasmaOrdered By: Carlitos Nguyen on 04-25-2023 Urea nitrogen [Mass/Vol] 15 mg/dL 7-25 [facility] Tobacco Screening.on 023 Adult depression screening assessment No [facility] [address] DO Work Phone: Fall risk assessment a) No falls within the last year [facility] [address] DO Work Phone: Tobacco use status CP b) No [facility] [address] DO Work Phone: Office Visit (Cardiology)on [...] in adult Healthy Weight Tips; Status:Complete; Done: [id number] SocHx: Never a smoker Tobacco Use Screening; Status:Complete; Done: [id number] Patient Instructions Please bring all medicines, vitamins, [...] she did get a second opinion in [place], and no change in medication was suggested [...] sinus sometime (more content not included)... Normal [employer] Tobacco Screening.on 022 Tobacco use status CPHS b) No -[facility] [address] DO Work Phone: Cardiovasc Arrhythmia Result son 07-31-2022 Cardiovasc Arrhythmia Results Reason For Visit MADYSON is here for the application of a [employer] monitor. Ordering Physician: Dr. Maza Diagnosis: abn TTT, dyspnea, syncope, autonomic orthostatic hypotension [facility] equipment agreement signed. MADYSON understands monitor is to be returned on: 08/14/22 Monitor number [id number] applied. Procedure Date I received for dictation [...] the office.; Status:Complete - Retrospective Authorization; Done: [id number] SocHx: Never a smoker Tobacco Use Screening; Status:Complete; Done: [id number] Patient Instructions Drink plenty of water daily, [...] Jiang in 1 week. I, Tammy Lujan, [employer]ER, am scribing for and in the presence [...] several minutes. 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 Normal [employer] Tobacco Screening.on 022 Fall risk assessment b) One or more fall s in the last year [facility] Work Phone: Tobacco use status CPHS b) No [facility] [employer] DO Work Phone: Office Visit (Cardiology)on 07-10-2022 [...] Confirmed - N/A AMA Intake updated by CMS ACCOUNT (INTRANET) on 2022-07-11 22:02 New Recipient: Annalee Maza New Appointment Date: 2022-07-21 07:20 Autonomic orthostatic hypotension, Syncope, unspecified syncope type Changed: From To Midodrine HCl - 10 MG Oral Tablet TAKE 1 TABLET 3 TIMES DAILY Class 1 obesity with body mass index (BMI) of 31.0 to 31.9 in adult Avoid getting up or changing positions quickly.; Status:Complete; Done: [id number] Healthy Weight Tips; Status:Complete; Done: 35Kjh6038 Some eating tips that can help you lose weight.; Status:Complete; Done: 85Mxd8779 Dyspnea (786.09) (R06.00) Class 1 obesity with [...] from 6 (more content not included)... Normal [facility] Tobacco Screening.on 022 Tobacco use status [facility] b) No [facility] y 250 DO Work Phone: COVID CepheidOrdered By: Daniele Pearce on 06-01-2022 SARS-CoV-2 (COVID-19) Ab IA Ql Negative Negative [facility] Comment on above: This is a duplicate CepQUICK SANDS SOLUTIONSid Xpert Xpress CoV-2/Flu/RSV Plus RNA by RT-PCR result to be used for statistical tracking purpose only. SARS-CoV-2 (COVID-19) RNA PERFECTO+probe Ql (Unsp spec) [facility] Office Visit (Cardiology)on 05-18-2022 Follow-up visit [...] in adult Healthy Weight Tips; Status:Complete; Done: 95Hbr6310 Some eating tips that can help you lose weight.; Status:Complete; Done: 57Fog2143 Dyspnea, Syncope, unspecified syncope type Urine Test; Status:Active - Retrospective By Protocol Authorization; Requested for:[id number]; Palpitation Start: Atenolol 25 MG Oral Tablet; TAKE 1 TABLET DAILY Syncope, unspecified syncope type Tilt Table; Status:Hold For - Scheduling,Retrospective By Protocol Authorization; Requested for:[id number]; Patient Instructions Please bring all medicines, vitamins, [...] consultation at the request of Ibis Colbert, SOFTWARE DESIGNER, for bouts of severe shortness of breath. [...] walking to the bathroom. She will see search engine optimization consultant in the near future, she had her pulmonary function test which I reviewed, there is concern for chronic asthma, but no reactive airway disease. She has 3 dogs that she had, and 1 cat at home. She is not orthostatic. She is feeling palpitations quite a bit. Results of the pulmonary function test and a Micah of [employer] was reviewed. Also reviewed stress test and [...] 3.5 c (more content not included)... Normal [facility] Tobacco Screening.on 022 Tobacco use status [facility] b) No [employer] 250 DO Work Phone: No Panel Informationon 05-03 [facility] [employer] y 250 DO Work Phone: [facility] [employer] 250 DO Work Phone: Cardiovasc Arrhythmia Result son 03-28-2022 Cardiovasc Arrhythmia Results Reason For Visit Event Monitor: MADYSON is here for the application of a 30 day event monitor in office., Diagnosis: Palps, Dyspnea, Chest pain Ordering Physician: MG Malone sent to: [employer] Monitor number [id number] applied. Holter monitor printed and placed on [...] ySite 05/03/2022 10:00 María Elena Cesar MDCardiologySurgery [facility] 05/18/2022 09:[address] [facility] 250 DO Signatures Electronically signed by : Melodie Alcaraz MD; May 01 2022 7:56PM EST (Author) [facility] Chemistry and C hemistry - challengeOrdered By: Melodie Alcaraz on 03-24-2022 Natriuretic peptide B (Bld) [Mass/Vol] 27.0 pg/mL 5-100 [facility] No Panel InformationOrdered By: Melodie Alcaraz on 03-24-2022 D-Dimer Quantitative (PE/DVT) < 200 ng/mL 0-243 [facility] Comment on above: The reference range [...] No Panel Informationon 03-24 0.70\S\0.70 Normal 0.45-5.33 [facility] [employer] 250 DO Work Phone: Comment on above: PERFORMED BY:[place] [address] [place], [place] [phone] MEDICAL DIRECTOROFE ELLIS M.D. 0.99\S\0.99 Normal 0.61-1.12 [facility] [employer] 250 DO Work Phone: 27.0\S\27.0 Normal 5-100 [facility] [employer] 250 DO Work Phone: Comment on above: PERFORMED BY:[place] [address] [place], [place] [phone] MEDICAL DIRECTOROFE ELLIS M.D. < 200 Normal 0-243 [facility] [employer] 250 DO Work Phone: Comment on above: [...] in hospitalized patients due to co-morbid conditions.PERFORMED BY:[place] [address] [place], [place] [phone] MEDICAL DIRECTOROFE ELLIS M.D. TSH DL <= 0.005 mIU/L QnOrde red By: Melodie Alcaraz on 03-24-2022 TSH Qn 0.70 m[IU]/L 0.45-5.33 [facility] Thyroxine (T4) free [Mass/vo lume] in Serum or PlasmaOrdered By: Melodie Alcaraz on 03-24-2022 Free T4 [Mass/Vol] 0.99 ng/dL 0.61-1.12 [facility] Office Visit (Cardiology)on 03-23-2022 Follow-up visit [...] Instructions By signing my name below, IMargarita LPN ,Christen, attest that this documentation has been prepared [...] brother had to be taken to [facility], and has history of heart murmur. [...] frequently pic (more content not included)... Normal [facility] PHQ-2 [facility] 03-23-2022 Adult depression screening assessment No [facility] 250 DO Work Phone: Fall risk assessment c) Not medically indicated [facility] 250 DO Work Phone: Tobacco use status [facility] b) No [facility] 250 DO Work Phone: ARMANI BY IFA WITH REFLEXon Nuclear Ab IF (S) [Titer] Negative Negative [facility] CCP ANTIBODY IGGon 2 Cyclic citrullinated peptide IgG Qn <15 <20 Units [facility] Cyclic citrullinated peptide IgG Qnon 01-26-2022 CCP Antibody IgG Qualitative Negative Negative [facility] Nuclear Ab IA Ql (S)on 01-26 ARMANI by EIA, Qual Negative Negative [facility] ARMANI BY IFA WITH REFLEXon Nuclear Ab IF (S) [Titer] Negative Normal Negative [facility] Comment on above: Order Comment: Speci men Type: BLOOD SPECIMEN Ordering Facility: [facility] Address: [address] [place] [address] Result Comment: Anti -nuclear antibody test is used as an aid in diagnosis of systemic autoimmune diseases. Where positive and clinically warranted, follow-up using disease-specific testing is recommended. Low positive titers are not uncommon with advanced age, certain chronic infections, and malignancies among others. Test methodology: Indirect fluorescence immunoassay (IFA) using HEp-2 cells. Performed By: #### A BRYON #### [facility] CLIA [id number] [address] [place] [address] [place] C-REACTIVE PROTEIN (CRP)on 0 01-25-2022 CRP [Mass/Vol] 0.4 mg/dL <0.9 mg/dL [facility] C1 ESTERASE INHIBITon 2021 C1 ESTERASE INHIBIT 26 mg/dL Normal 21-38 [facility] Comment on above: Order Comment: Jose Carlos oseguera Type: BLOOD SPECIMEN Ordering Facility: [facility] Address: [address] [place] [address] Result Comment: Perf ormed By: [facility] [address] [place] [address] Biology Lecturer: Brittni Moscoso MD Performed By: #### 1 6570-4, 78891-5, 41433-5, 12691-1, 42684-2, 33358-7, 73533-2, 65612-4 #### [facility] CLIA [id number] [address] [place] [address] [place] C2 COMPLEMENT BLDon 01-26-20 22 C2 COMPLEMENT 2.4 mg/dL Normal 1.6-4.0 [facility] Comment on above: Order Comment: Jose Carlos oseguera Type: BLOOD SPECIMEN Ordering Facility: [facility] Address: [address] [place] [address] Result Comment: INTE RPRETIVE INFORMATION: Complement Component 2 Decreased C2 levels may be associated with increased susceptibility to infection (especially pneumococcal infections), systemic lupus erythematosus-like disease, rashes, arthritis and nephritis, and with C1-Esterase deficiency. Increased C2 levels are associated with the acute phase response. This test was developed and its performance characteristics determined by [facility]. It has not been cleared or approved by the [place] Food and Drug Administration. This test was performed in a CLIA certified laboratory and is intended for clinical purposes. Performed By: [address] [address] Biology Lecturer: Brittni Moscoso MD Performed By: #### 1 6570-4, 26634-8, 58479-1, 77669-3, 53576-8, 82975-9, 42494-3, 06368-2 #### [facility] CLIA [id number] [address] [place] [address] [place] C3 COMPLEMENT BLDon 01-26-20 22 Complement C3 [Mass/Vol] 130 mg/dL 86 - 166 mg/dL [facility] C3 SerPl-mCncon 01-25-2022 Complement C3 [Mass/Vol] 130 mg/dL Normal 86-166 [facility] Comment on above: Order Comment: Speci men Type: BLOOD SPECIMEN Ordering Facility: [facility] Address: [address] [place], [place] [address] Performed By: #### 1 6570-4, 72442-7, 80278-9, 60556-2, 00859-9, 61028-0, 62049-8, 48027-7 #### [facility] CLIA [id number] [address] [place] [address] [place] C4 COMPLEMENT BLDon 01-26-20 Complement C4 [Mass/Vol] 30 mg/dL 13 - 46 mg/dL [facility] C4 SerPl-mCncon 01-25-2022 Complement C4 [Mass/Vol] 30 mg/dL Normal 13-46 [facility] Comment on above: Order Comment: Speci men Type: BLOOD SPECIMEN Ordering Facility: [facility] Address: [address] [place], [place] [address] Performed By: #### 1 6570-4, 99234-2, 03758-5, 38328-6, 35120-5, 16578-2, 29697-2, 24720-7 #### [facility] CLIA [id number] [address] [place] [address] [place] CBC panel Auto (Bld)on 01-25 Erythrocyte distribution width (RBC) [Ratio] 12.1 % Normal 11.5-15.0 [facility] Comment on above: Order Comment: Speci men Type: BLOOD SPECIMEN Ordering Facility: [facility] Address: [address] [place] [address] Performed By: #### 1 6570-4, 20048-9, 58416-5, 62636-2, 59741-4, 52028-8, 86821-0, 33087-8 #### [facility] CLIA [id number] [address] [place] [address] [place] Hematocrit (Bld) [Volume fraction] 42.6 % Normal 36.0-46.0 [facility] Comment on above: Order Comment: Speci men Type: BLOOD SPECIMEN Ordering Facility: [facility] Address: [address] [place] [address] Performed By: #### 1 6570-4, 82821-6, 07311-5, 92082-3, 46610-3, 41120-0, 14438-8, 45864-3 #### [facility] CLIA [id number] [address] [place] [address] [place] Hemoglobin (Bld) [Mass/Vol] 13.8 g/dL Normal 11.5-15.5 [facility] Comment on above: Order Comment: Speci men Type: BLOOD SPECIMEN Ordering Facility: [facility] Address: [address] [place] [address] Performed By: #### 1 6570-4, 39686-0, 06999-5, 69479-9, 36743-5, 43177-5, 44841-8, 33942-4 #### [facility] CLIA [id number] [address] [place] [address] [place] MCH (RBC) [Entitic mass] 28.3 pg Normal 26.0-34.0 [facility] Comment on above: Order Comment: Speci men Type: BLOOD SPECIMEN Ordering Facility: [facility] Address: [address] [place] [address] Performed By: #### 1 6570-4, 96659-8, 00632-6, 16759-6, 21057-8, 52299-4, 09166-0, 61827-6 #### [facility] CLIA [id number] [address] [place] [address] [place] MCHC (RBC) [Mass/Vol] 32.4 g/dL Normal 30.5-36.0 [facility] Comment on above: Order Comment: Speci men Type: BLOOD SPECIMEN Ordering Facility: [facility] Address: [address] [place] [address] Performed By: #### 1 6570-4, 56251-3, 74564-4, 74952-1, 56903-7, 92769-0, 63064-6, 85956-0 #### [facility] CLIA [id number] [address] [place] [address] [place] MCV (RBC) [Entitic vol] 87.3 fL Normal 80.0-100.0 [facility] Comment on above: Order Comment: Speci men Type: BLOOD SPECIMEN Ordering Facility: [facility] Address: [address] [place] [address] Performed By: #### 1 6570-4, 00135-0, 45639-8, 57804-9, 04908-9, 02691-9, 42670-5, 86116-8 #### [facility] CLIA [id number] [address] [place] [address] [place] Nucleated RBC (Bld) [#/Vol] 10*3/uL Normal <0.01 [facility] Comment on above: Order Comment: Speci men Type: BLOOD SPECIMEN Ordering Facility: [facility] Address: [address] [place] [address] Performed By: #### 1 6570-4, 21887-1, 52832-9, 53552-7, 34373-1, 06343-8, 37128-9, 26273-1 #### [facility] CLIA [id number] [address] [place] [address] [place] Platelet mean volume (Bld) [Entitic vol] 10.3 fL Normal 9.0-12.7 [facility] Comment on above: Order Comment: Speci men Type: BLOOD SPECIMEN Ordering Facility: [facility] Address: [address] [place] [address] Performed By: #### 1 6570-4, 17957-5, 55971-8, 62026-3, 57873-2, 63290-4, 23393-4, 36349-5 #### [facility] CLIA [id number] [address] [place] [address] [place] Platelets (Bld) [#/Vol] 213 10*3/uL Normal 150-400 [facility] Comment on above: Order Comment: Speci men Type: BLOOD SPECIMEN Ordering Facility: [facility] Address: [address] [place] [address] Performed By: #### 1 6570-4, 26069-8, 85540-6, 46331-5, 99029-4, 86095-1, 96832-9, 13469-6 #### [facility] CLIA [id number] [address] [place] [address] [place] RBC (Bld) [#/Vol] 4.88 10*6/uL Normal 3.90-5.20 [facility] Comment on above: Order Comment: Speci men Type: BLOOD SPECIMEN Ordering Facility: [facility] Address: [address] [place], [place] [address] Performed By: #### 1 6570-4, 44044-8, 19430-7, 33771-2, 03189-1, 21416-0, 64953-0, 21832-0 #### [facility] CLIA [id number] [address] [place] [address] [place] WBC (Bld) [#/Vol] 4.77 10*3/uL Normal 3.70-11.00 [facility] Comment on above: Order Comment: Speci men Type: BLOOD SPECIMEN Ordering Facility: [facility] Address: [address] [place] [address] Performed By: #### 1 6570-4, 88302-3, 48868-6, 60324-6, 47853-0, 65552-0, 22219-7, 04244-9 #### [facility] CLIA [id number] [address] [place] [address] [address] [place] OF [facility] Erythrocyte distribution width (RBC) [Ratio] 12.1 % 11.5 - 15.0 % [facility] Hematocrit (Bld) [Volume fraction] 42.6 % 36.0 - 46.0 % [facility] Hemoglobin (Bld) [Mass/Vol] 13.8 g/dL 11.5 - 15.5 g/dL [facility] MCH (RBC) [Entitic mass] 28.3 pg 26.0 - 34.0 pg [facility] MCHC (RBC) [Mass/Vol] 32.4 g/dL 30.5 - 36.0 g/dL [facility] MCV (RBC) [Entitic vol] 87.3 fL 80.0 - 100.0 fL [facility] Nucleated RBC (Bld) [#/Vol] 10*3/uL <0.01 k/uL [facility] Platelet mean volume (Bld) [Entitic vol] 10.3 fL 9.0 - 12.7 fL [facility] Platelets (Bld) [#/Vol] 213 10*3/uL 150 - 400 k/uL [facility] RBC (Bld) [#/Vol] 4.88 10*6/uL 3.90 - 5.20 m/uL [facility] WBC (Bld) [#/Vol] 4.77 10*3/uL 3.70 - 11.00 k/uL [facility] CRP SerPl-mCncon 01-25-2022 CRP [Mass/Vol] 0.4 mg/dL Normal <0.9 [facility] Comment on above: Order Comment: Jose Carlos oseguera Type: BLOOD SPECIMEN Ordering Facility: [facility] Address: [address] [place] [address] Performed By: #### 1 6570-4, 99582-1, 12331-7, 02896-4, 02971-0, 80719-2, 32814-5, 56390-5 #### [facility] CLIA [id number] [address] [place] [address] [place] Centromere Ab IF Ql (S)on Centromere Ab Qn (S) <0.2 Normal <1.0 [facility] Comment on above: Order Comment: Speci men Type: BLOOD SPECIMEN Ordering Facility: [facility] Address: [address] [place] [address] Result Comment: Anti -centromere antibody is used as in aid in diagnosis of systemic sclerosis. Clinical correlation is required. Test Methodology: Multiplex flow immunoassay. Performed By: #### 1 6570-4, 05217-0, 12077-9, 11977-4, 20821-4, 33737-4, 74894-8, 45489-9 #### [facility] CLIA [id number] [address] [place] [address] CENTROMERE AB QUAL Negative Normal Negative [facility] Comment on above: Order Comment: Speci men Type: BLOOD SPECIMEN Ordering Facility: [facility] Address: [address] [place] [address] Performed By: #### 1 6570-4, 95412-8, 28209-5, 60976-9, 28474-6, 13187-8, 54367-8, 70379-7 #### [facility] CLIA [id number] [address] [place] [address] [place] Chromatin Ab Qnon 01-25-2022 CHROMATIN AB QUAL Negative Normal Negative [facility] Comment on above: Order Comment: Speci men Type: BLOOD SPECIMEN Ordering Facility: [facility] Address: [address] [place] [address] Performed By: #### 1 6570-4, 34190-3, 77402-7, 57258-7, 98277-4, 38488-8, 26263-5, 69624-1 #### [facility] CLIA [id number] [address] [place] [address] [place] Chromatin Ab SerPl-aCncon Chromatin Ab Qn <0.2 Normal <1.0 [facility] Comment on above: Order Comment: Speci men Type: BLOOD SPECIMEN Ordering Facility: [facility] Address: [address] [place] [address] Result Comment: Test Methodology: Multiplex flow immunoassay. Performed By: #### 1 6570-4, 59601-8, 09360-9, 49614-7, 11883-3, 73917-5, 60372-4, 18413-3 #### [facility] CLIA [id number] [address] [place] [address] STATES [place] [facility] Comprehensive metabolic 2000 panelon 01-25-2022 Albumin [Mass/Vol] 4.5 g/dL 3.9 - 4.9 g/dL [facility] ALP [Catalytic activity/Vol] 65 U/L 34 - 123 U/L [facility] ALT [Catalytic activity/Vol] 14 U/L 7 - 38 U/L [facility] Anion gap [Moles/Vol] 11 mmol/L 9 - 18 mmol/L [facility] AST [Catalytic activity/Vol] 14 U/L 13 - 35 U/L [facility] Bilirubin [Mass/Vol] 0.3 mg/dL 0.2 - 1 .3 mg/dL [facility] Calcium [Mass/Vol] 9.5 mg/dL 8.5 - 10. 2 mg/dL [facility] Chloride [Moles/Vol] 105 mmol/L 97 - 10 5 mmol/L [facility] CO2 [Moles/Vol] 26 mmol/L 22 - 30 mmol/L [facility] Creatinine [Mass/Vol] 0.71 mg/dL 0.58 - 0.96 mg/dL [facility] Estimated Glomerular Filtration Rate 125 mL/min/1.73m >=60 mL/min/1.7 3m [facility] Glucose [Mass/Vol] 94 mg/dL 74 - 99 mg/dL [facility] Potassium [Moles/Vol] 4.6 mmol/L 3.7 - 5.1 mmol/L [facility] Protein [Mass/Vol] 7.2 g/dL 6.3 - 8.0 g/dL [facility] Sodium [Moles/Vol] 142 mmol/L 136 - 144 mmol/L [facility] Urea nitrogen [Mass/Vol] 8 mg/dL 7 - 21 mg/dL [facility] Albumin [Mass/Vol] 4.5 g/dL Normal 3.9-4.9 [facility] Comment on above: Order Comment: Speci men Type: BLOOD SPECIMEN Ordering Facility: [facility] Address: [address] [place] [address] Performed By: #### 1 6570-4, 85965-7, 65954-9, 24446-5, 38473-6, 39858-3, 46475-6, 85650-1 #### [facility] CLIA [id number] [address] [place] [address] [place] ALP [Catalytic activity/Vol] 65 U/L Normal 34-123 [facility] Comment on above: Order Comment: Speci men Type: BLOOD SPECIMEN Ordering Facility: [facility] Address: [address] [place] [address] Performed By: #### 1 6570-4, 31320-6, 74766-9, 12971-1, 10758-2, 95615-5, 67869-6, 27653-4 #### [facility] CLIA [id number] [address] [place] [address] [place] ALT [Catalytic activity/Vol] 14 U/L Normal 7-38 [facility] Comment on above: Order Comment: Speci men Type: BLOOD SPECIMEN Ordering Facility: [facility] Address: [address] [place] [address] Performed By: #### 1 6570-4, 42833-1, 34766-8, 15118-6, 98079-7, 47909-8, 71751-6, 02003-9 #### [facility] CLIA [id number] [address] [place] [address] [place] Anion gap [Moles/Vol] 11 mmol/L Normal 9-18 [facility] Comment on above: Order Comment: Speci men Type: BLOOD SPECIMEN Ordering Facility: [facility] Address: [address] [place] [address] Performed By: #### 1 6570-4, 87394-0, 00756-7, 34925-8, 95779-6, 81216-6, 08482-0, 62311-7 #### [facility] CLIA [id number] [address] [place] [address] [place] AST [Catalytic activity/Vol] 14 U/L Normal 13-35 [facility] Comment on above: Order Comment: Speci men Type: BLOOD SPECIMEN Ordering Facility: [facility] Address: [address] [place] [address] Performed By: #### 1 6570-4, 19630-0, 32112-9, 02155-3, 71411-2, 99938-0, 77968-1, 23527-9 #### [facility] CLIA [id number] [address] [place] [address] [place] Bilirubin [Mass/Vol] 0.3 mg/dL Normal 0.2-1.3 [facility] Comment on above: Order Comment: Speci men Type: BLOOD SPECIMEN Ordering Facility: [facility] Address: [address] [place] [address] Performed By: #### 1 6570-4, 80601-9, 85993-2, 66783-5, 90573-0, 39829-7, 64339-4, 29386-9 #### [facility] CLIA [id number] [address] [place] [address] [place] Calcium [Mass/Vol] 9.5 mg/dL Normal 8.5-10.2 [facility] Comment on above: Order Comment: Speci men Type: BLOOD SPECIMEN Ordering Facility: [facility] Address: [address] [place] [address] Performed By: #### 1 6570-4, 71324-7, 73508-2, 91725-0, 31307-0, 62046-6, 67656-8, 06462-8 #### [facility] CLIA [id number] [address] [place] [address] [place] Chloride [Moles/Vol] 105 mmol/L Normal 97-105 [facility] Comment on above: Order Comment: Speci men Type: BLOOD SPECIMEN Ordering Facility: [facility] Address: [address] [place] [address] Performed By: #### 1 6570-4, 42701-8, 11540-3, 30617-9, 52512-9, 22591-3, 97003-1, 07202-5 #### [facility] CLIA [id number] [address] [place] [address] [place] CO2 [Moles/Vol] 26 mmol/L Normal 22-30 [facility] Comment on above: Order Comment: Speci men Type: BLOOD SPECIMEN Ordering Facility: [facility] Address: [address] [place] [address] Performed By: #### 1 6570-4, 08281-2, 07871-5, 32149-6, 81024-4, 32121-0, 56482-5, 90894-0 #### [facility] CLIA [id number] [address] [place] [address] [place] Creatinine [Mass/Vol] 0.71 mg/dL Normal 0.58-0.96 [facility] Comment on above: Order Comment: Speci men Type: BLOOD SPECIMEN Ordering Facility: [facility] Address: [address] [place] [address] Performed By: #### 1 6570-4, 78369-2, 94365-6, 56875-0, 91251-0, 54987-4, 32121-0, 11181-5 #### [facility] CLIA [id number] [address] [place] [address] [place] ESTIMATED GLOMERULAR FILTRATION RATE 125 mL/min/1.73m??? Normal >=60 [facility] Comment on above: Order Comment: Jose Carlos oseguera Type: BLOOD SPECIMEN Ordering Facility: [facility] Address: [address] [place] [address] Result Comment: Francesca mated Glomerular Filtration Rate [...] actual GFR. Performed By: #### 1 6570-4, 02748-6, 49392-5, 04336-9, 80038-8, 52603-8, 16899-9, 26783-5 #### [facility] [facility] CLIA [id number] [address] [place] [address] [place] Glucose [Mass/Vol] 94 mg/dL Normal 74-99 [facility] Comment on above: Order Comment: Jose Carlos oseguera Type: BLOOD SPECIMEN Ordering Facility: [facility] Address: [address] [place] [address] Result Comment: The [place] [employer] Association (ADA) provides guidance for cutoff [...] Standards of Medical Care in Diabetes 2016, [place] [employer]. Diabetes Care. 2016.39(Suppl 1). Performed By: #### 1 6570-4, 13425-3, 11262-2, 35181-6, 42032-3, 73991-0, 67850-4, 94358-3 #### [facility] CLIA [id number] [address] [place] [address] [place] Potassium [Moles/Vol] 4.6 mmol/L Normal 3.7-5.1 [facility] Comment on above: Order Comment: Speci men Type: BLOOD SPECIMEN Ordering Facility: [facility] Address: [address] [place] [address] Performed By: #### 1 6570-4, 96879-5, 92671-7, 09678-2, 76937-0, 55920-2, 52980-8, 11584-7 #### [facility] CLIA [id number] [address] [place] [address] [place] Protein [Mass/Vol] 7.2 g/dL Normal 6.3-8.0 [facility] Comment on above: Order Comment: Speci men Type: BLOOD SPECIMEN Ordering Facility: [facility] Address: [address] [place] [address] Performed By: #### 1 6570-4, 87772-6, 80040-2, 31098-0, 48057-8, 69307-1, 49836-9, 77774-1 #### [facility] CLIA [id number] [address] [place] [address] [place] Sodium [Moles/Vol] 142 mmol/L Normal 136-144 [facility] Comment on above: Order Comment: Speci men Type: BLOOD SPECIMEN Ordering Facility: [facility] Address: [address] [place] [address] Performed By: #### 1 6570-4, 49611-3, 83550-3, 27719-2, 45103-5, 88585-7, 55481-4, 45209-9 #### [facility] CLIA [id number] [address] [place] [address] [place] Urea nitrogen [Mass/Vol] 8 mg/dL Normal 7-21 [facility] Comment on above: Order Comment: Speci men Type: BLOOD SPECIMEN Ordering Facility: [facility] Address: [address] [place] [address] Performed By: #### 1 6570-4, 70944-0, 65608-6, 51885-7, 48954-9, 84084-3, 41831-0, 81964-4 #### [facility] CLIA [id number] [address] [place] [address] [place] Cyclic citrullinated peptide IgG Qnon 01-25-2022 CCP ANTIBODY IGG QUALITATIVE Negative Normal Negative [facility] Comment on above: Order Comment: Speci men Type: BLOOD SPECIMEN Ordering Facility: [facility] Address: [address] [place] [address] Performed By: #### 1 6570-4, 83244-2, 64270-2, 61186-5, 71791-0, 69350-4, 81701-9, 98931-9 #### [facility] CLIA [id number] [address] [place] [address] [place] Jo1 Ab Ser-aCncon 2021 Yuly-1 extractable nuclear Ab Qn (S) <0.2 Normal <1.0 [facility] Comment on above: Order Comment: Speci men Type: BLOOD SPECIMEN Ordering Facility: [facility] Address: [address] [place] [address] Performed By: #### 1 6570-4, 94516-1, 47119-4, 39790-1, 73001-2, 91824-6, 62289-2, 22934-9 #### [facility] CLIA [id number] [address] [place] [address] [place] RESOURCE CONSERVATION MANAGER Ab Ser-aCncon 2021 Ribonucleoprotein extractable nuclear Ab Qn (S) <0.2 Normal <1.0 [facility] Comment on above: Order Comment: Speci men Type: BLOOD SPECIMEN Ordering Facility: [facility] Address: [address] [place] [address] Performed By: #### 1 6570-4, 38996-5, 81035-9, 36924-1, 99555-2, 22438-4, 70828-5, 61096-9 #### [facility] CLIA [id number] [address] [place] [address] [place] SM IgG Ser-aCncon 2021 Cota extractable nuclear IgG Qn (S) <0.2 Normal <1.0 [facility] Comment on above: Order Comment: Speci men Type: BLOOD SPECIMEN Ordering Facility: [facility] Address: [address] [place] [address] Performed By: #### 1 6570-4, 65981-7, 67878-5, 45491-8, 03389-2, 19637-4, 89855-8, 86935-3 #### [facility] CLIA [id number] [address] [place] [address] [place] SS-A Ab Ser-aCncon 01-25 Sjogrens syndrome-A extractable nuclear Ab Qn (S) <0.2 Normal <1.0 [facility] Comment on above: Order Comment: Speci men Type: BLOOD SPECIMEN Ordering Facility: [facility] Address: [address] [place] [address] Result Comment: Test Methodology: Multiplex flow immunoassay. Performed By: #### 1 6570-4, 68557-4, 54646-4, 85351-0, 44778-2, 62616-3, 48240-0, 70785-0 #### [facility] CLIA [id number] [address] [place] [address] [place] SS-B Ab Ser-aCncon 01-25 Sjogrens syndrome-B extractable nuclear Ab Qn (S) <0.2 Normal <1.0 [facility] Comment on above: Order Comment: Jose Carlos oseguera Type: BLOOD SPECIMEN Ordering Facility: [facility] Address: [address] [place] [address] Result Comment: Anti -SSB (anti-La) antibody is used as an aid in diagnosis of a variety of systemic autoimmune diseases, especially for Sjogren's syndrome and systemic lupus erythematosus. Clinical correlation is required. Test Methodology: Multiplex flow immunoassay. Performed By: #### 1 6570-4, 28231-7, 66391-6, 88405-8, 23473-9, 48363-7, 27054-6, 20730-9 #### [facility] CLIA [id number] [address] [place] [address] [place] ESR Westergren method (Bld) [Velocity]on 01-25-2022 ESR (Bld) [Velocity] 2 mm/h 0 - 20 mm/hr [facility] ESR (Bld) [Velocity] 2 mm/h Normal 0-20 [facility] Comment on above: Order Comment: Jose Carlos oseguera Type: BLOOD SPECIMEN Ordering Facility: [facility] Address: [address] [place] [address] Performed By: #### 1 6570-4, 58620-4, 30472-4, 27160-1, 66754-0, 09292-7, 10730-6, 07314-5 #### [facility] CLIA [id number] [address] [place] [address] [place] HBV core Ab Ser Qlon 022 HBV core Ab Ql (S) Negative Normal Negative [facility] Comment on above: Order Comment: Jose Carlos oseguera Type: BLOOD SPECIMEN Ordering Facility: [facility] Address: [address] [place] [address] Result Comment: No e vidence of current or past infection with Hepatitis B virus. Should recent infection be suspected, repeat testing may be considered 3-4 weeks after this draw. Performed By: #### 1 6570-4, 94635-3, 02346-6, 07794-8, 29465-5, 43791-2, 36668-8, 36251-8 #### [facility] CLIA [id number] [address] [place] [address] HBV surface Ab IA Ql (S)on 0 01-25-2022 HBV surface Ag Ql (S) Negative Normal Negative [facility] Comment on above: Order Comment: Speci men Type: BLOOD SPECIMEN Ordering Facility: [facility] Address: [address] [place] [address] Performed By: #### 1 6570-4, 18437-6, 14699-9, 16734-0, 00210-6, 87639-7, 40862-1, 96791-0 #### [facility] CLIA [id number] [address] [place] [address] HBV surface Ab Ser Qlon - HBV surface Ab Ql (S) Negative Normal Negative [facility] Comment on above: Order Comment: Speci [facility] Type: BLOOD SPECIMEN Ordering Facility: [facility] Address: [address] [place] [address] Result Comment: No e vidence of current or past infection with Hepatitis B virus. Should recent infection be suspected, repeat testing may be considered 3-4 weeks after this draw. Performed By: #### 1 6570-4, 15429-8, 78678-7, 16159-0, 34353-3, 36752-0, 88556-9, 14477-2 #### [facility] CLIA [id number] [address] [place] [address] HCV Ab Ser Qlon 01-25-2022 HCV Ab Ql (S) Negative Normal Negative [facility] Comment on above: Order Comment: Speci [facility] Type: BLOOD SPECIMEN Ordering Facility: [facility] Address: [address] [place] [address] Result Comment: The result suggests no evidence of active infection with Hepatitis C virus. Should recent infection be suspected, repeat testing may be considered 4-6 weeks after this draw. Performed By: #### 1 6570-4, 14142-0, 03484-8, 58400-2, 95552-1, 87662-4, 65727-7, 78154-9 #### [facility] CLIA [id number] [address] [place] [address] [place] Yuly-1 extractable nuclear Ab Qn (S)on 01-25-2022 YULY 1 ANTIBODY QUAL Negative Normal Negative [facility] Comment on above: Order Comment: Speci men Type: BLOOD SPECIMEN Ordering Facility: [facility] Address: [address] [place] [address] Result Comment: Anti -YULY-1 antibody is used as an aid in diagnosis of polymyositis and dermatomyositis especially with pulmonary involvement. A negative result cannot rule out polymyositis or dermatomyositis. Clinical correlation is required. Test Methodology: Multiplex flow immunoassay. Performed By: #### 1 6570-4, 61413-9, 33108-6, 98229-5, 68656-3, 47971-3, 44496-7, 43003-1 #### [facility] CLIA [id number] [address] [place] [address] [place] Nuclear Ab IA Ql (S)on 01-25 ARMAN[facility] BY EIA, QUAL Negative Normal Negative [facility] Comment on above: Order Comment: Speci men Type: BLOOD SPECIMEN Ordering Facility: [facility] Address: [address] [place] [address] Result Comment: The qualitative antinuclear antibody screen test performed using enzyme immunoassay including the following antigens: dsDNA, histones, SS-A, SS-B, Sm, Sm/RESOURCE CONSERVATION MANAGER, Scl-70, Yuly-1, and centromeric antigens. Performed By: #### 1 6570-4, 63546-4, 30556-3, 17726-6, 95797-9, 33705-2, 80909-4, 70800-1 #### [facility] CLIA [id number] [address] [place] [address] [place] RHEUMATOID FACTOR BLon 01-25 Rheumatoid factor Qn [IU]/mL <16 IU/mL [facility] Rheumatoid factor Qn [IU]/mL Normal <16 [facility] Comment on above: Order Comment: Jose Carlos oseguera Type: BLOOD SPECIMEN Ordering Facility: [facility] Address: [address] [place] [address] Performed By: #### 1 6570-4, 35973-2, 59019-6, 00029-1, 11273-7, 80247-2, 82940-8, 15793-2 #### [facility] CLIA [id number] [address] [place] [address] [place] Ribonucleoprotein extractabl e nuclear Ab Qn (S)on 01-25-2022 ANTI-RESOURCE CONSERVATION MANAGER QUAL Negative Normal Negative [facility] Comment on above: Order Comment: Jose Carlos oseguera Type: BLOOD SPECIMEN Ordering Facility: [facility] Address: [address] [place] [address] Performed By: #### 1 6570-4, 03663-1, 45460-7, 02539-6, 98536-7, 83013-2, 26134-3, 44689-0 #### [facility] CLIA [id number] [address] [place] [address] [place] RIBOSOMAL RESOURCE CONSERVATION MANAGER QUAL Negative Normal Negative [facility] Comment on above: Order Comment: Jose Carlos oseguera Type: BLOOD SPECIMEN Ordering Facility: [facility] Address: [address] [place] [address] Result Comment: Anti -Ribosomal RNA (Ribosomal P) antibody is used as an aid in diagnosis of systemic autoimmune diseases especially systemic lupus erythematosus and mixed connective tissue disease. Cross-reactivity with Anti-cota antibody is not uncommon. Clinical correlation is required. Test Methodology: Multiplex flow immunoassay. Performed By: #### 1 6570-4, 22924-2, 25920-4, 32433-4, 91707-5, 81965-1, 44348-7, 93405-0 #### [facility] CLIA [id number] [address] OF [place] SCL-70 extractable nuclear I gG IA Qn (S)on 01-25-2022 SCLERODERMA AB QUAL Negative Normal Negative [facility] Comment on above: Order Comment: Horacioi ana rosa Type: BLOOD SPECIMEN Ordering Facility: [facility] Address: [address] [place] [address] Performed By: #### 1 6570-4, 39541-2, 04251-2, 14089-3, 74221-1, 83217-2, 65162-9, 58561-0 #### [facility] CLIA [id number] [address] [place] [address] [place] SCLERODERMA IGG AB <0.2 Normal <1.0 [facility] Comment on above: Order Comment: Jose Carlos oseguera Type: BLOOD SPECIMEN Ordering Facility: [facility] Address: [address] [place] [address] Result Comment: Scl- 70/Scleroderma antibody test is used as an aid in diagnosis of systemic sclerosis especially the diffuse cutaneous form. A negative result cannot rule out systemic sclerosis. The final interpretation should consider clinical picture and other test results such as anti-centromere antibody. Test Methodology: Multiplex flow immunoassay. Performed By: #### 1 6570-4, 35209-6, 09704-8, 42129-7, 82296-9, 58837-6, 19463-1, 81752-9 #### [facility] CLIA [id number] [address] [place] [address] [place] Sjogrens syndrome-A extracta ble nuclear Ab Qn (S)on 01-25-2022 SSA ANTIBODY QUAL Negative Normal Negative [facility] Comment on above: Order Comment: Jose Carlos oseguera Type: BLOOD SPECIMEN Ordering Facility: [facility] Address: [address] [place] [address] Performed By: #### 1 6570-4, 01304-2, 01964-9, 87844-7, 30985-6, 61079-8, 67159-4, 15114-5 #### [facility] CLIA [id number] [address] [place] [address] [place] Sjogrens syndrome-B extracta ble nuclear Ab Qn (S)on 01-25-2022 SSB ANTIBODY QUAL Negative Normal Negative [facility] Comment on above: Order Comment: Speci men Type: BLOOD SPECIMEN Ordering Facility: [facility] Address: [address] [place] [address] Performed By: #### 1 6570-4, 97054-3, 13846-5, 11709-0, 79179-1, 15598-9, 59446-6, 45119-0 #### [facility] CLIA [id number] [address] [place] [address] [place] Cota extractable nuclear Ig G Qn (S)on 01-25-2022 SM ANTIBODY QUAL Negative Normal Negative [facility] Comment on above: Order Comment: Jose Carlos oseguera Type: BLOOD SPECIMEN Ordering Facility: [facility] Address: [address] [place] [address] Result Comment: Anti -Sm (Cota) antibody is used as an aid in diagnosis of systemic lupus erythematosus and its presence is associated with renal disease. A negative result cannot rule out systemic lupus erythematosus. Clinical correlation is required. Test Methodology: Multiplex flow immunoassay. Performed By: #### 1 6570-4, 50512-1, 21467-4, 39018-0, 41638-7, 42370-8, 93697-8, 99460-7 #### [facility] IA [id number] [address] [place] [address] [place] cCP IgG SerPl-aCncon 022 Cyclic citrullinated peptide IgG Qn <15 Normal <20 [facility] Comment on above: Order Comment: Jose Carlos oseguera Type: BLOOD SPECIMEN Ordering Facility: [facility] Address: [address] [place] [address] Performed By: #### 1 6570-4, 48950-1, 43944-7, 79303-1, 41601-8, 85533-4, 45649-2, 02103-7 #### [facility] CLIA [id number] [address] [place] [id number] [id number] [place] XR ankle LT min 3V*on 2021 XR ankle LT min 3V* [facility] [employer] Other XR ankle LT min 3V* [facility] [employer] Other XR ankle LT min 3V* [address] [place] [address] [employer] Other XR ankle LT min 3V* [place] [address] [place] [employer] Other XR ankle LT min 3V* XRay Report [place] [employer] Other XR ankle LT min 3V* Signed [employer] Other XR ankle LT min 3V* Patient: Madyson Schmid MR#: [id number] [place] [employer] Other XR ankle LT min 3V* : 2000 Acct:[id number] [employer] Other XR ankle LT min 3V* Age/Sex: 20 / F ADM Date: 10/10/21 [employer] Other XR ankle LT min 3V* Loc: XDUCLY Room: pe: REG CLI [employer] Other XR ankle LT min 3V* Attending Dr: Christina GONZALEZ [employer] Other XR ankle LT min 3V* Ordering Provider: CARLOS Santos [employer] Other XR ankle LT min 3V* Date of Service: 10/10/21 [employer] Other XR ankle LT min 3V* XR/XR ankle LT min 3V*: Acute left ankle pain [employer] Other XR ankle LT min 3V* Copies to: Christina Pearce NP-C [employer] Other XR ankle LT min 3V* Left ankle 10/10/2021. [employer] Other XR ankle LT min 3V* CLINICAL DATA: Left ankle pain after twisting injury. [employer] Other XR ankle LT min 3V* FINDINGS: 3 views of the left ankle were obtained. [employer] Other XR ankle LT min 3V* No acute fracture or dislocation is identified. No other bony abnormality is seen. Anterolateral [employer] Other XR ankle LT min 3V* soft tissue swelling is noted. [employer] Other XR ankle LT min 3V* X R/XR ankle LT min 3V* [employer] Other XR ankle LT min 3V* IMPRESSION: Soft tis cody swelling. No acute bony abnormality. [employer] Other XR ankle LT min 3V* Impression dictated by: Erick Cueto Jr., M.D.10/10/2021 4:24 PM [employer] Other XR ankle LT min 3V* Dictation Location: [place] [address] [employer] Other XR ankle LT min 3V* Transcribed By: MIRELLA 10/10/21 162 [employer] Other XR ankle LT min 3V* Dictated By: Erick Cueto Jr, MD 10/10/21 1621 [employer] Other XR ankle LT min 3V* Signed By: [employer] Other XR ankle LT min 3V* 10/10/21 1624 No rt [employer] Other Vital Signs Date Time Vital Sign Value Performing Clinician Facility 10-29-2024 16:23-0500 Body mass index (BMI) [Ratio] 38.27 kg/m2 Osei Helena DO Work Phone: [facility] 10-29-2024 16:23-0500 Body weight 104.33 kg Osei Helena DO Work Phone: [facility] 10-29-2024 16:23-0500 Diastolic blood pressure 68 mm[Hg] Osei Helena DO Work Phone: [facility] 10-29-2024 16:23-0500 Systolic blood pressure 112 mm[Hg] Osei Helena DO Work Phone: [facility] 10-15-2024 16:11-0500 Body mass index (BMI) [Ratio] 38.94 kg/m2 Osei Helena DO Work Phone: [facility] 10-15-2024 16:11-0500 Body weight 106.14 kg Osei Helena DO Work Phone: [facility] 10-15-2024 16:11-0500 Diastolic blood pressure 64 mm[Hg] Osei Helena DO Work Phone: [facility] 10-15-2024 16:11-0500 Systolic blood pressure 118 mm[Hg] Osei Helena DO Work Phone: [facility] 10-02-2024 11:43-0500 Body mass index (BMI) [Ratio] 38.44 kg/m2 Osei Helena DO Work Phone: [facility] 10-02-2024 11:43-0500 Body weight 104.78 kg Osei Helena DO Work Phone: [facility] 10-02-2024 11:43-0500 Diastolic blood pressure 72 mm[Hg] Osei Helena DO Work Phone: [facility] 10-02-2024 11:43-0500 Systolic blood pressure 118 mm[Hg] Osei Helena DO Work Phone: [facility] 09-18-2024 10:52-0500 Body mass index (BMI) [Ratio] 38.74 kg/m2 Osei Helena DO Work Phone: [facility] 09-18-2024 10:52-0500 Body weight 105.6 kg Osei Helena DO Work Phone: [facility] 09-18-2024 10:52-0500 Diastolic blood pressure 68 mm[Hg] Osei Helena DO Work Phone: [facility] 09-18-2024 10:52-0500 Systolic blood pressure 118 mm[Hg] Osei Helena DO Work Phone: [facility] 09-03-2024 15:21-0500 Body mass index (BMI) [Ratio] 37.44 kg/m2 Osei Helena DO Work Phone: [facility] 09-03-2024 15:21-0500 Body weight 102.06 kg Osei Helena DO Work Phone: [facility] 09-03-2024 15:21-0500 Diastolic blood pressure 68 mm[Hg] Osei Helena DO Work Phone: [facility] 09-03-2024 15:21-0500 Systolic blood pressure 120 mm[Hg] Osei Helena DO Work Phone: [facility] 08-27-2024 13:08-0500 Body height 165.1 cm Camilla Hemmer PA Work Phone: [facility] 08-27-2024 13:08-0500 Body mass index (BMI) [Ratio] 38.11 kg/m2 Camilla Hemmer PA Work Phone: [facility] 08-27-2024 13:08-0500 Body weight 103.87 kg Camilla Hemmer PA Work Phone: [facility] 08-27-2024 13:08-0500 Diastolic blood pressure 72 mm[Hg] Camilla Hemmer PA Work Phone: [facility] 08-27-2024 13:08-0500 Heart rate 92 /min Camilla Hemmer PA Work Phone: [facility] 08-27-2024 13:08-0500 Respiratory rate 16 /min Camilla Seguramer PA Work Phone: [facility] 08-27-2024 13:08-0500 SaO2% (BldA) [Mass fraction] 98 % Camilla Hemmer PA Work Phone: [facility] 08-27-2024 13:08-0500 Systolic blood pressure 118 mm[Hg] Camilla Seguramer PA Work Phone: [facility] 08-13-2024 09:22-0500 Body height 165.1 cm Hammad Hatch MD Work Phone: [facility] 08-13-2024 09:22-0500 Body mass index (BMI) [Ratio] 36.91 kg/m2 Hammad Hatch MD Work Phone: [facility] 08-13-2024 09:22-0500 Body weight 100.61 kg Hammad Hatch MD Work Phone: [facility] 08-05-2024 09:05-0500 Body mass index (BMI) [Ratio] 36.44 kg/m2 Flori Hampton PA Work Phone: [facility] 08-05-2024 09:05-0500 Body weight 99.34 kg Flori Louise PA Work Phone: [facility] 08-05-2024 09:05-0500 Diastolic blood pressure 68 mm[Hg] Flori Louise PA Work Phone: [facility] 08-05-2024 09:05-0500 Systolic blood pressure 110 mm[Hg] Flori Louise PA Work Phone: [facility] 07-03-2024 14:41-0400 Body mass index (BMI) [Ratio] 35.65 kg/m2 Flori Louise PA Work Phone: [facility] 07-03-2024 14:41-0400 Body weight 97.18 kg Flori Louise PA Work Phone: [facility] 07-03-2024 14:41-0400 Diastolic blood pressure 64 mm[Hg] Flori Acevedoey PA Work Phone: [facility] 07-03-2024 14:41-0400 Systolic blood pressure 116 mm[Hg] Flori Acevedoey PA Work Phone: [facility] 06-04-2024 15:53-0400 Body mass index (BMI) [Ratio] 35.36 kg/m2 Osei Helena DO Work Phone: [facility] 06-04-2024 15:53-0400 Body weight 96.39 kg Osei Helena DO Work Phone: [facility] 06-04-2024 15:53-0400 Diastolic blood pressure 70 mm[Hg] Osei Helena DO Work Phone: [facility] 06-04-2024 15:53-0400 Systolic blood pressure 126 mm[Hg] Osei Helena DO Work Phone: [facility] 05-23-2024 09:35-0400 Body mass index (BMI) [Ratio] 35.01 kg/m2 Nom Nurse [facility] 05-23-2024 09:35-0400 Body weight 95.44 kg [facility] Nurse [facility] 05-20-2024 09:37-0400 Body height 165.1 cm Camilla Hemmer PA Work Phone: [facility] 05-20-2024 09:37-0400 Body mass index (BMI) [Ratio] 34.98 kg/m2 Camilla Hemmer PA Work Phone: [facility] 05-20-2024 09:37-0400 Body weight 95.35 kg Camilla Hemmer PA Work Phone: [facility] 05-20-2024 09:37-0400 Diastolic blood pressure 76 mm[Hg] Camilla Hemmer PA Work Phone: [facility] 05-20-2024 09:37-0400 Heart rate 87 /min Camilla Hemmer PA Work Phone: [facility] 05-20-2024 09:37-0400 Respiratory rate 16 /min Camilla Gaston PA Work Phone: [facility] 05-20-2024 09:37-0400 SaO2% (BldA) [Mass fraction] 98 % Camilla Seguramer PA Work Phone: [facility] 05-20-2024 09:37-0400 Systolic blood pressure 108 mm[Hg] Camilla Seguramer PA Work Phone: [facility] 11-30-2023 09:33-0500 Body height 165.1 cm Jyoti Noble PA-C Work Phone: [facility] 11-30-2023 09:33-0500 Body weight 92.99 kg Jyoti Noble PA-C Work Phone: [facility] 11-30-2023 09:33-0500 Diastolic blood pressure 79 mm[Hg] Jyoti Noble PA-C Work Phone: [facility] 11-30-2023 09:33-0500 Heart rate 84 /min Jyoti Noble PA-C Work Phone: [facility] 11-30-2023 09:33-0500 SaO2% (BldA) [Mass fraction] 96 % Jyoti Noble PA-C Work Phone: [facility] 11-30-2023 09:33-0500 Systolic blood pressure 118 mm[Hg] Jyoti Noble PA-C Work Phone: [facility] 06-13-2023 12:36-0400 Body height 165.1 cm Ibis Renteria Work Phone: [facility] [employer] 600 DO Work Phone: 06-13-2023 12:36-0400 Body mass index (BMI) [Ratio] 33.28 kg/m2 Ibis Arenasncer Work Phone: [facility] [employer] 600 DO Work Phone: 06-13-2023 12:36-0400 Body surface area Derived from formula 1.98 m2 Ibis A Blas Work Phone: [facility] 600 DO Work Phone: 06-13-2023 12:36-0400 Body weight 90.72 kg Ibis A Blas Work Phone: [facility] 600 DO Work Phone: 06-13-2023 12:36-0400 Diastolic blood pressure 80 mm[Hg] Ibis A Blas Work Phone: [facility] 600 DO Work Phone: 06-13-2023 12:36-0400 Heart rate 76 /min Ibis A Blas Work Phone: [facility] 600 DO Work Phone: 06-13-2023 12:36-0400 Systolic blood pressure 116 mm[Hg] Ibis A Blas [facility]: [facility] DO Work Phone: 06-08-2023 21:50-0400 Diastolic blood pressure 59 mm[Hg] SOFTWARE DESIGNER-C Ibis Blas Work Phone: [facility] 06-08-2023 21:50-0400 Heart rate 82 /min SOFTWARE DESIGNER-C Ibis Blas Work Phone: [facility] 06-08-2023 21:50-0400 Respiratory rate 18 /min SOFTWARE DESIGNER-C Ibis Blas Work Phone: [facility] 06-08-2023 21:50-0400 SaO2% (BldA) [Mass fraction] 99 % SOFTWARE DESIGNER-C Ibis Blas Work Phone: [facility] 06-08-2023 21:50-0400 Systolic blood pressure 115 mm[Hg] SOFTWARE DESIGNER-C Ibis Blas Work Phone: [facility] 06-08-2023 16:35-0400 Body height 165.1 cm SOFTWARE DESIGNER-C Ibis Blas Work Phone: [facility] 06-08-2023 16:35-0400 Body temperature 97.8 [degF] SOFTWARE DESIGNER-C Ibis Blas Work Phone: [facility] 06-08-2023 16:35-0400 Body weight 91.6 kg SOFTWARE DESIGNER-C Ibis Blas Work Phone: [facility] 12-28-2022 15:00-0400 Body weight 89.36 kg Irvin Hanna MD Work Phone: [facility] 12-28-2022 15:00-0400 Diastolic blood pressure 86 mm[Hg] Irvin Hanna MD Work Phone: [facility] 12-28-2022 15:00-0400 Heart rate 79 /min Irvin Hanna MD Work Phone: [facility] 12-28-2022 15:00-0400 Respiratory rate 16 /min Irvin Hanna MD Work Phone: [facility] 12-28-2022 15:00-0400 Systolic blood pressure 119 mm[Hg] Irvin Hanna MD Work Phone: [facility] 10-13-2022 09:35-0500 Body height 165.1 cm Ibis Rhonda Blas Work Phone: [facility] 320 DO Work Phone: 10-13-2022 09:35-0500 Body mass index (BMI) [Ratio] 33.45 kg/m2 Ibis A Blas Work Phone: [facility] 320 DO Work Phone: 10-13-2022 09:35-0500 Body surface area Derived from formula 1.98 m2 Ibis A Blas Work Phone: [facility] 320 DO Work Phone: 10-13-2022 09:35-0500 Body weight 91.17 kg Ibis A Blas Work Phone: [facility] 320 DO Work Phone: 10-13-2022 09:35-0500 Diastolic blood pressure 70 mm[Hg] Ibis A Blas Work Phone: [facility] 320 DO Work Phone: 10-13-2022 09:35-0500 Heart rate 76 /min Ibis A Blas Work Phone: [facility] 320 DO Work Phone: 10-13-2022 09:35-0500 Systolic blood pressure 102 mm[Hg] Ibis A Blas Work Phone: [facility] 320 DO Work Phone: 09-11-2022 09:58-0500 Diastolic blood pressure 82 mm[Hg] Ibis A Blas Work Phone: [facility] 250 DO Work Phone: 09-11-2022 09:58-0500 Diastolic blood pressure 80 mm[Hg] Ibis A Blas Work Phone: [facility] 250 DO Work Phone: 09-11-2022 09:58-0500 Systolic blood pressure 112 mm[Hg] Ibis A Blas Work Phone: [facility] 250 DO Work Phone: 09-11-2022 09:58-0500 Systolic blood pressure 108 mm[Hg] Ibis A Blas Work Phone: [facility] 250 DO Work Phone: 09-11-2022 08:57-0500 Body height 165.1 cm Ibis A Blas Work Phone: [facility] 250 DO Work Phone: 09-11-2022 08:57-0500 Body mass index (BMI) [Ratio] 32.95 kg/m2 Ibis A Blas Work Phone: [facility] 250 DO Work Phone: 09-11-2022 08:57-0500 Body surface area Derived from formula 1.97 m2 Ibis A Blas Work Phone: [facility] 250 DO Work Phone: 09-11-2022 08:57-0500 Body weight 89.81 kg Ibis A Blas Work Phone: [facility] 250 DO Work Phone: 09-11-2022 08:57-0500 Diastolic blood pressure 68 mm[Hg] Ibis A Blas Work Phone: [facility] 250 DO Work Phone: 09-11-2022 08:57-0500 Heart rate 74 /min Ibis A Blas Work Phone: [facility] 250 DO Work Phone: 09-11-2022 08:57-0500 Systolic blood pressure 102 mm[Hg] Ibis A Blas Work Phone: [facility] 250 DO Work Phone: 07-31-2022 10:14-0500 Body weight 89.81 kg Irvin Hanna MD Work Phone: [facility] 07-31-2022 10:14-0500 Diastolic blood pressure 71 mm[Hg] Irvin Hanna MD Work Phone: [facility] 07-31-2022 10:14-0500 Heart rate 92 /min Irvin Hanna MD Work Phone: [facility] 07-31-2022 10:14-0500 Systolic blood pressure 109 mm[Hg] Irvin Hanna MD Work Phone: [facility] 07-21-2022 07:27-0400 Body height 165.1 cm Ibis A Blas Work Phone: [facility] 320 DO Work Phone: 07-21-2022 07:27-0400 Body mass index (BMI) [Ratio] 33.45 kg/m2 Ibis A Blas Work Phone: [facility] 320 DO Work Phone: 07-21-2022 07:27-0400 Body surface area Derived from formula 1.98 m2 Ibis A Blas Work Phone: [facility] 320 DO Work Phone: 07-21-2022 07:27-0400 Body weight 91.17 kg Ibis A Blas Work Phone: [facility] 320 DO Work Phone: 07-21-2022 07:27-0400 Diastolic blood pressure 72 mm[Hg] Ibis A Blas Work Phone: [facility] 320 DO Work Phone: 07-21-2022 07:27-0400 Heart rate 64 /min Ibis A Blas Work Phone: [facility] 320 DO Work Phone: 07-21-2022 07:27-0400 Systolic blood pressure 106 mm[Hg] Ibis A Blas Work Phone: [facility] 320 DO Work Phone: 07-10-2022 10:45-0400 Body height 165.1 cm Ibis A Blas Work Phone: [facility] 250 DO Work Phone: 07-10-2022 10:45-0400 Body mass index (BMI) [Ratio] 32.95 kg/m2 Ibis A Blas Work Phone: [facility] 250 DO Work Phone: 07-10-2022 10:45-0400 Body surface area Derived from formula 1.97 m2 Ibis A Blas Work Phone: [facility] 250 DO Work Phone: 07-10-2022 10:45-0400 Body weight 89.81 kg Ibis A Blas Work Phone: [facility] 250 DO Work Phone: 07-10-2022 10:45-0400 Diastolic blood pressure 70 mm[Hg] Ibis A Blas Work Phone: [facility] 250 DO Work Phone: 07-10-2022 10:45-0400 Heart rate 76 /min Ibis A Blas Work Phone: [facility] 250 DO Work Phone: 07-10-2022 10:45-0400 Systolic blood pressure 104 mm[Hg] Ibis A Blas Work Phone: [facility] 250 DO Work Phone: 06-01-2022 11:36-0400 Body height 165.1 cm SOFTWARE DESIGNER-C Ibis Blas Work Phone: [facility] 06-01-2022 11:36-0400 Body temperature 100 [degF] SOFTWARE DESIGNER-C Ibis Blas Work Phone: [facility] 06-01-2022 11:36-0400 Body weight 88.4 kg SOFTWARE DESIGNER-C Ibis Blas Work Phone: [facility] 06-01-2022 11:36-0400 Diastolic blood pressure 68 mm[Hg] SOFTWARE DESIGNER-C Ibis Blas Work Phone: [facility] 06-01-2022 11:36-0400 Heart rate 99 /min SOFTWARE DESIGNER-C Ibis Blas Work Phone: [facility] 06-01-2022 11:36-0400 Respiratory rate 18 /min SOFTWARE DESIGNER-C Ibis Blas Work Phone: [facility] 06-01-2022 11:36-0400 SaO2% (BldA) [Mass fraction] 97 % SOFTWARE DESIGNER-C Ibis Blas Work Phone: [facility] 06-01-2022 11:36-0400 Systolic blood pressure 121 mm[Hg] SOFTWARE DESIGNER-C Ibis Blas Work Phone: [facility] 05-18-2022 09:42-0400 Body height 165.1 cm Ibis A Blas Work Phone: [facility] 250 DO Work Phone: 05-18-2022 09:42-0400 Body mass index (BMI) [Ratio] 31.95 kg/m2 Ibis A Blas Work Phone: [facility] 250 DO Work Phone: 05-18-2022 09:42-0400 Body surface area Derived from formula 1.94 m2 Ibis A Blas Work Phone: [facility] 250 DO Work Phone: 05-18-2022 09:42-0400 Body weight 87.09 kg Ibis A Blas Work Phone: [facility] 250 DO Work Phone: 05-18-2022 09:42-0400 Diastolic blood pressure 74 mm[Hg] Ibis A Blas Work Phone: [facility] 250 DO Work Phone: 05-18-2022 09:42-0400 Heart rate 72 /min Ibis A Blas Work Phone: [facility] 250 DO Work Phone: 05-18-2022 09:42-0400 Systolic blood pressure 102 mm[Hg] Ibis A Blas Work Phone: [facility] 250 DO Work Phone: 03-23-2022 09:11-0400 Diastolic blood pressure 80 mm[Hg] Ibis A Blas Work Phone: [facility] 250 DO Work Phone: 03-23-2022 09:11-0400 Systolic blood pressure 110 mm[Hg] Ibis A Blas Work Phone: [facility] 250 DO Work Phone: 03-23-2022 09:06-0400 Body height 166.37 cm Ibis A Blas Work Phone: [facility] 250 DO Work Phone: 03-23-2022 09:06-0400 Body mass index (BMI) [Ratio] 31.3 kg/m2 Ibis A Blas Work Phone: [facility] 250 DO Work Phone: 03-23-2022 09:06-0400 Body surface area Derived from formula 1.95 m2 Ibis A Blas Work Phone: [facility] 250 DO Work Phone: 03-23-2022 09:06-0400 Body weight 86.64 kg Ibis A Blas Work Phone: [facility] 250 DO Work Phone: 03-23-2022 09:06-0400 Diastolic blood pressure 76 mm[Hg] Ibis A Blas Work Phone: [facility] 250 DO Work Phone: 03-23-2022 09:06-0400 Heart rate 66 /min Ibis A Blas Work Phone: [facility] 250 DO Work Phone: 03-23-2022 09:06-0400 Systolic blood pressure 118 mm[Hg] Ibis A Blas Work Phone: [facility] 250 DO Work Phone: 01-25-2022 08:16-0400 Body height 165.1 cm Irvin Hanna MD Work Phone: [facility] 01-25-2022 08:16-0400 Body weight 86.36 kg Irvin Hanna MD Work Phone: [facility] 01-25-2022 08:16-0400 Diastolic blood pressure 83 mm[Hg] Irvin Hanna MD Work Phone: [facility] 01-25-2022 08:16-0400 Heart rate 71 /min Irvin Hanna MD Work Phone: [facility] 01-25-2022 08:16-0400 Systolic blood pressure 116 mm[Hg] Irvin Hanna MD Work Phone: [facility] 01-10-2022 12:45-0400 Body height 165.1 cm Ok Mckeon Other [employer] Other 01-10-2022 12:45-0400 Body mass index (BMI) [Ratio] 31.61 kg/m2 Ok Mckeon Other [employer] Other 01-10-2022 12:45-0400 Body temperature 97.8 [degF] Ok Mckeon Other [employer] Other 01-10-2022 12:45-0400 Body weight 86.18 kg Ok Mckeon Other [employer] Other 01-10-2022 12:45-0400 Diastolic blood pressure 80 mm[Hg] Ok Mckeon Other [employer] Other 01-10-2022 12:45-0400 SaO2% (BldA) [Mass fraction] 96 % Ok Mckeon Other [employer] Other 01-10-2022 12:45-0400 Systolic blood pressure 120 mm[Hg] Ok Mckeon Other [employer] Other 10-10-2021 15:50-0500 Body height 165.1 cm Christina Lambmond Other [employer] Other 10-10-2021 15:50-0500 Body mass index (BMI) [Ratio] 31.61 kg/m2 Christina Portia Other [employer] Other 10-10-2021 15:50-0500 Body temperature 97 [degF] Christina Portia Other [employer] Other 10-10-2021 15:50-0500 Body weight 86.18 kg Christina Portia Other [employer] Other 10-10-2021 15:50-0500 Diastolic blood pressure 76 mm[Hg] Christina Portia Other [employer] Other 10-10-2021 15:50-0500 Respiratory rate 18 /min Christina Lambmond Other [employer] Other 10-10-2021 15:50-0500 SaO2% (BldA) [Mass fraction] 99 % Christina Pearce Other [employer] Other 10-10-2021 15:50-0500 Systolic blood pressure 123 mm[Hg] Christina Pearce Other [employer] Other Encounters Encounter Date Encounter Type Care Provider Facility Start: 11-10-2024 End: 11-10-2024 ambulatory OSEI HELENA Not Available Start: 11-07-2024 End: 11-07-2024 Clinisync Result Encounter [...] Only Roshni Jo RN [facility] Comment on above: Dichorionic diamniot ic twin in third trimester (Primary Dx) Start: 10-16-2024 End: 10-16-2024 ambulatory OSEI R HELENA [facility] Start: 10-15-2024 End: 10-15-2024 flow sheet [...] Start: 09-25-2024 End: 09-25-2024 ambulatory Osei Helena [facility] Work Phone: Start: 09-25-2024 End: 09-25-2024 Departed Referred Osei Helena DO Work Phone: [facility] Start: 09-25-2024 End: 09-25-2024 Clinisync Result Encounter Osei Helena DO Work Phone: [facility] External Department Unsolicited Start: 09-25-2024 End: 09-25-2024 Clinisync Result Encounter Osei Helena DO Work Phone: [facility] External Department Unsolicited Start: 09-25-2024 End: 09-26-2024 Telephone encounter Osei Helena DO Work Phone: [facility] BCP OB Start: 09-19-2024 End: 09-26-2024 Orders Only Chrissie Willis COLOR PASTE MIXER [facility] Comment on above: Dichorionic diamniot ic [...] OB Start: 09-02-2024 End: 09-02-2024 ambulatory JYOTI WALSHUR Facility:[facility] Comment on above: POTS (postural ortho static [...] encounter Marycarmen Kennedy RN [facility] Start: 08-27-2024 End: 08-27-2024 Bamboo flowsheet Camilla TOLBERT Work Phone: [facility] CI FM Start: 08-27-2024 End: 08-27-2024 Bamboo flowsheet Camilla Gaston PA Work Phone: [...] Only Sammi Green RN [facility] Comment on above: Dichorionic diamniot ic twin in second trimester (Primary Dx); POTS (postural orthostatic tachycardia syndrome); Asthma during ; 20 weeks gestation of Start: 08-13-2024 End: 08-13-2024 Office outpatient new 45 minutes Muna Lenz MD Work Phone: [facility] Comment on above: Dichorionic diamniot ic twin in second trimester (Primary Dx); POTS (postural orthostatic tachycardia syndrome); Asthma during ; 20 weeks gestation of Start: 08-13-2024 End: 08-13-2024 ambulatory OSEI R [facility] Start: 08-11-2024 End: 08-13-2024 Clinisync Result Encounter [...] Start: 07-24-2024 End: 07-24-2024 ambulatory Celeste Watson Facility:[facility] Start: 07-07-2024 End: 07-07-2024 Chart abstracting Hammad Hatch MD Work Phone: [facility] Start: 07-03-2024 End: 07-03-2024 flow sheet [...] Start: 07-02-2024 End: 07-02-2024 ambulatory Joie Seaman APRN.PHOTOENGRAVING PRINTER Work Phone: Neurology Comment on above: POTS (postural ortho static tachycardia syndrome) (Primary Dx); Near syncope Start: 07-02-2024 End: 07-02-2024 Telemedicine consultation with patient Joie Seaman APRN.PHOTOENGRAVING PRINTER Work Phone: Neurology Start: 06-10-2024 End: 06-11-2024 [...] (Primary Dx) Start: 05-20-2024 End: 05-20-2024 ambulatory CMAILLA GASTON Not Available Start: 04-12-2024 End: 04-12-2024 ambulatory Celeste Watson Facility:[facility] Start: 04-12-2024 End: 04-12-2024 Patient encounter procedure Celeste [facility] Start: 03-25-2024 Patient encounter status Camilla TOLBERT [...] End: 03-14-2024 Patient encounter procedure Celeste Watson [facility] Start: 02-26-2024 End: 02-26-2024 ambulatory JB MANDUJANO Not Available Start: 01-22-2024 ambulatory CERTIFIED HEALTH EDUCATION SPECIALIST Krista L Mae Facil ity:[facility] Start: 01-01-2024 End: 01-01-2024 ambulatory CELESTE WATSON Not Available Start: 12-21-2023 End: 12-21-2023 ambulatory OSEI MALIK Not Available Start: 12-11-2023 End: 12-11-2023 ambulatory CERTIFIED HEALTH EDUCATION SPECIALIST Krista L Mae Facility:[facility] Start: 12-11-2023 End: 12-11-2023 ambulatory CELESTE WATSON Not Available Start: 11-30-2023 End: 11-30-2023 ambulatory AURORA SANTIAGO Facility:[facility] Start: 11-30-2023 End: 11-30-2023 Patient encounter procedure Jyoti Dickey PA-C Work Phone: Neurology Comment on above: POTS (postural ortho static tachycardia syndrome) (Primary Dx) Start: 11-12-2023 End: 11-12-2023 Patient encounter procedure Autonomic 2 Neur Main [facility] Start: 11-12-2023 End: 11-12-2023 ambulatory AURORA SANTIAGO Neurology Comment on above: Procedure Start: 10-10-2023 End: 10-10-2023 ambulatory AURORA SANTIAGO Facility:[facility] Start: 07-24-2023 End: 07-24-2023 ambulatory Jocelin FELIX Facility:[facility] Start: 07-20-2023 Telephone encounter Arin Tinajero RN [facility] Comment on above: Referral Follow-up Start: 07-10-2023 End: 07-10-2023 ambulatory JOSE ARMANDO GREY Facility:[facility] Start: 07-10-2023 End: 07-10-2023 Office outpatient new 30 minutes Jose Armando Grey DO Work Phone: [facility] [place] Comment on above: Chronic pain of righ t knee (Primary Dx); Tendinopathy of gluteal region Start: 07-06-2023 Orders Only Jose Armando Grey DO Work Phone: Orthopaedics Comment on above: Right knee pain, uns pecified chronicity (Primary Dx) Start: 07-05-2023 End: 07-05-2023 ambulatory SOFTWARE DESIGNER-C Ibis Maggy Bals Work Phone: [facility] Work Phone: Start: 07-05-2023 End: 07-05-2023 Patient encounter procedure SOFTWARE DESIGNER-C Ibis Blas Work Phone: [facility]-Flu Vaccine Start: 06-13-2023 Office outpatient vi sit 15 minutes Ibis Limer Work Phone: -[facility] 600 DO Work Phone: Start: 06-13-2023 ambulatory Tabatha Gladstone Facility:[id number] Start: 06-08-2023 End: 06-08-2023 Emergency department patient visit SOFTWARE DESIGNER-C Ibis Blas Work Phone: [facility]-Emergency Room Work Phone: Start: 04-25-2023 End: 04-25-2023 ambulatory SOFTWARE DESIGNER-C Ibis Maggy Blas Work Phone: [facility] Work Phone: Start: 04-25-2023 End: 04-25-2023 Departed Referred SOFTWARE DESIGNER-C Ibis Blas Work Phone: [facility] [address] Work Phone: Start: 03-14-2023 ambulatory CHAN MUÑIZ Fa cility:[facility] Start: 01-18-2023 End: 01-18-2023 ambulatory SOFTWARE DESIGNER-C Ibis Maggy Blas Work Phone: [facility] Work Phone: Start: 01-18-2023 End: 01-18-2023 Departed Referred SOFTWARE DESIGNER-C Ibis Limer Work Phone: [facility] [address] Work Phone: Start: 12-28-2022 End: 12-28-2022 Patient encounter procedure Irvin Hanna MD Work Phone: Rheumatology Comment on above: Pain and swelling of knee, right (Primary Dx); Joint stiffness Start: 10-31-2022 Chart Update Ibis Arenasn cer Work Phone: [facility] 250 DO Work Phone: Start: 10-16-[address] Melodie Alfonso ty: Start: 10-13-2022 Current tobacco non- user cad cap copd pv dm Ibis Ellis Blas Work Phone: [facility] 320 DO Work Phone: Start: 10-13-[address] Annalee Pierre acility: Start: 09-11-2022 Office outpatient vi sit 15 minutes Ibis Ellis Blas Work Phone: [facility] 250 DO Work Phone: Start: 09-11-2022 Patient encounter procedure Ibis Ellis Blas Work Phone: [facility] 250 DO Work Phone: Start: 09-11-[address] Melodie Alfonso ty: Start: 09-07-2022 Telephone encounter Ibis Ellis Blas Work Phone: [facility] 320 DO Work Phone: Start: 08-27-[address] Annalee Pierre acility: Start: 08-01-2022 AUDIT Ibis Ellis Spen cer Work Phone: [facility] 320 DO Work Phone: Start: 07-31-2022 EVENT EZEKIEL, Provider : HERIBERTO SERRANO MANAGING MEMBER 1,[id number], Status: Pen, Time: 11:00 AM Ibis A Blas Work Phone: [facility] 250 DO Work Phone: Start: 07-31-[address] Annalee Pierre acility: Start: 07-31-2022 End: 07-31-2022 Patient encounter procedure Irvin Hanna MD Work Phone: Rheumatology Comment on above: Pain and swelling of knee, right (Primary Dx); Joint stiffness; Inflammatory arthritis Start: 07-26-2022 ambulatory IBIS Sanchez y:[facility] Start: 07-21-2022 Current tobacco non- user cad cap copd pv dm Ibis A Blas Work Phone: [facility] 320 DO Work Phone: Start: 07-21-[address] Annalee Maza F acility: Start: 07-10-2022 Office outpatient vi sit 25 minutes Ibis A Blas Work Phone: [facility] 250 DO Work Phone: Start: 07-10-2022 Patient encounter procedure Ibis A Blas Work Phone: [facility] 250 DO Work Phone: Start: 07-10-[address] Melodie Alfonso ty: Start: 06-15-2022 Telephone encounter Ibis A Blas Work Phone: [facility] 250 DO Work Phone: Start: 06-12-2022 End: 06-12-[address] Annalee Maza Facility:[id number] Start: 06-05-2022 Patient encounter procedure Ibis Renteria Work Phone: [id number] Work Phone: Start: 06-01-2022 End: 06-01-2022 Emergency department patient visit SOFTWARE DESIGNER-C Ibis Arenasncer Work Phone: [facility]-Emergency Room Start: 05-18-2022 Office outpatient vi sit 25 minutes Ibis A Blas Work Phone: [facility] 250 DO Work Phone: Start: 05-18-2022 Patient encounter procedure Ibis A Blas Work Phone: [facility] 250 DO Work Phone: Start: 05-08-2022 End: 05-08-2022 Patient encounter procedure SOFTWARE DESIGNER-C Ibis Blas Work Phone: [facility]-Respiratory Therapy Start: 05-03-2022 Result Review Ibis A Spen cer Work Phone: [facility] 250 DO Work Phone: Start: 05-03-2022 SURGNONUH, Provider: María Elena Freire, Status: Pen, Time: 10:00 AM Ibis A Blas Work Phone: [facility] 250 DO Work Phone: Start: 05-03-2022 End: 05-03-2022 Patient encounter procedure SOFTWARE DESIGNER-C Ibis Blas Work Phone: [facility]-ay [facility] Start: 03-28-2022 EVENT EZEKIEL, Provider : HERIBERTO SINGH MANAGING MEMBER 1,[id number], Status: Pen, Time: 8:00 AM Ibis A Blas Work Phone: [facility] 250 DO Work Phone: Start: 03-28-2022 Patient encounter procedure Ibis A Blas Work Phone: [facility] 250 DO Work Phone: Start: 03-26-2022 Chart Update Ibis Arenasn cer Work Phone: [facility] 250 DO Work Phone: Start: 03-24-2022 End: 03-24-2022 Patient encounter procedure SOFTWARE DESIGNER-C Ibis Arenasncer Work Phone: [facility] Main [place] Start: 03-23-2022 Office consultation new/estab patient 60 min Ibis A Blas Work Phone: [facility] 250 DO Work Phone: Start: 03-23-2022 Office outpatient ne w 45 minutes Ibis A Blas Work Phone: [facility] Work Phone: Start: 02-02-2022 Telephone encounter Irvin shannon MD Work Phone: Rheumatology Comment on above: Orders Start: 01-25-2022 End: 01-25-2022 Patient encounter procedure Irvin Hanna MD Work Phone: Rheumatology Comment on above: Pain and swelling of knee, right (Primary Dx); Joint stiffness Start: 01-10-2022 End: 01-10-2022 ambulatory Ok Mckeon Other [employer] Other Start: 01-10-2022 Office outpatient ne w 45 minutes Ok Mckeon [facility] Vascular Surgery Start: 10-10-2021 End: 10-10-2021 ambulatory Christina Pearce Other [employer] Other Start: 10-10-2021 Office outpatient vi sit [...] Work Phone: Start: 10-27-2024 [facility] UA (CLEAN/CATCH) COTTON PULLER/MICRO IF IND. Osei Helena DO Work Phone: Start: 10-23-2024 US OB BPP W NON-STRESS Generic External Data Provider Start: 10-15-2024 Urnls dip stick/tabl et rgnt non-auto w/o micrscp Osei Helena DO Work Phone: Start: 10-02-2024 Urnls dip stick/tabl et rgnt non-auto w/o micrscp Osei Helena DO Work Phone: Start: 09-25-2024 [facility] UA (CLEAN/CATCH) COTTON PULLER/MICRO IF IND. Osei Helena DO Work Phone: [...] Osei Helena DO Work Phone: Start: 07-10-2023 [facility] Pr ovider Historical Start: 06-08-2023 Plain chest X-ray SOFTWARE DESIGNER-C Ibis Blas Work Phone: Start: 01-18-2023 Plain chest X-ray SOFTWARE DESIGNER-C Ibis Blas Work Phone: Start: 05-03-2022 Plain chest X-ray SOFTWARE DESIGNER-C Ibis Blas Work Phone: Start: 08-05-2021 Arthroscopy of knee Lorna hlverenice Watson Arthroscopy of knee Ibis A Blas Work Phone: Cryotherapy of warts Rajeev Watson Extraction of wisdom tooth Ibis Limer Work Phone: SARS-CoV-2, Influenz a & RSV (PCR) SOFTWARE DESIGNER-C Ibis Renteria Work Phone: Tonsillectomy and adenoidectomy Ibis Renteria Work Phone: Tonsillectomy and adenoidectomy Celeste Watson NEGATED: Highlighted row has not occurred! Total colonoscopy Ibis Ellis Blas Work Phone: Plan of Treatment Date Care Activity Detail Author Start: 03-25-2034 DTaP,Tdap and Td Vac cines (8 - Td or Tdap) DTaP,Tdap and Td Vaccines (8 - Td or Tdap) [facility] Start: 03-25-2034 Urine microalbumin profile DTaP,Tdap,Td Vaccine (8 - Td or Tdap) [facility] Start: 08-05-2027 Screening for malign ant neoplasm of cervix Pap Smear [facility] Start: 10-17-2025 End: 10-17-2025 US MFM with or without consult US MFM with or without consult Imaging Routine Dichorionic diamniotic twin in third trimester Expected: 10/17/2025 (Approximate), Expires: 10/17/2025 [employer] Work Phone: Comment on above: Expected: 10/17/2025 (Approximate), Expires: 10/17/2025 Start: 09-19-2025 End: 09-19-2025 US MFM with or without consult US MFM with or without consult Imaging Routine Dichorionic diamniotic twin in second trimester Expected: 09/19/2025 (Approximate), Expires: 09/19/2025 [employer] Work Phone: Comment on above: Expected: 09/19/2025 (Approximate), Expires: 09/19/2025 Start: 08-15-2025 End: 08-15-2025 US MFM with or without consult US MFM with or without consult Imaging Routine Dichorionic diamniotic twin in second trimester POTS (postural orthostatic tachycardia syndrome) Asthma during 20 weeks gestation of Expected: 08/15/2025 (Approximate), Expires: 08/15/2025 [facility] Work Phone: Comment on above: Expected: 08/15/2025 (Approximate), Expires: 08/15/2025 Start: 08-13-2025 Adult BMI Screening Adult BMI Screen ing [facility] Start: 08-13-2025 Tobacco Screening Tobacco Screening [facility] Start: 11-12-2024 End: 11-12-2024 Patient encounter procedure 11/12/2024 9:30 AM EST Appointment [facility] Imaging [address] [place] [address] [facility] Start: 11-10-2024 End: 11-10-2024 Patient encounter procedure 11/10/2024 9:00 AM EST Routine [facility] [address] [place] [id number] Osei Malik, [address] [place] [address] [facility] Start: 10-29-2024 End: 10-29-2024 Patient encounter procedure [facility] Comment on above: Arrived Start: 10-16-2024 End: 10-16-2024 Patient encounter procedure 10/16/2024 1:00 PM EST Appointment [facility] [address] [place] [phone] [facility] Start: 10-15-2024 End: 10-15-2024 Patient encounter procedure [facility] Comment on above: Arrived Start: 10-15-2024 End: 10-15-2025 US biophysical profile w non stress test US biophysical profile w non stress test Imaging Routine Dichorionic diamniotic twin in second trimester Expected: 10/15/2024 (Approximate), Expires: 10/15/2025 [facility] Work Phone: Comment on above: Expected: 10/15/2024 (Approximate), Expires: 10/15/2025 Start: 10-02-2024 End: 10-02-2024 Patient encounter procedure 10/02/2024 11:00 AM EST Routine [facility] [address] [place] [id number] Osei Malik DO [address] [place] [address] [facility] Start: 09-25-2024 Urine culture [facility] Start: 09-25-2024 Bacteria identified in Urine by Culture Urine Culture [facility] Start: 09-23-2024 End: 09-23-2024 Patient encounter procedure 09/23/2024 1:00 PM EST Appointment [facility] - Ultrasound [address] [place] [phone] [facility] Start: 09-19-2024 End: 09-19-2024 Patient encounter procedure 09/19/2024 9:30 AM EST Appointment [facility] [address] [place] [address] [facility] Start: 09-18-2024 End: 09-18-2024 Patient encounter procedure [facility] Comment on above: Arrived Start: 09-03-2024 End: 09-03-2024 Patient encounter procedure [facility] Comment on above: Arrived Start: 09-02-2024 End: 09-02-2024 ambulatory 09/02/2024 12:15 PM EST [facility] [address] [id number] Jyoti Dickey PA-C [address] [place] [address] F/u Neurology Comment on above: F/u Start: 09-02-2024 End: 09-02-2024 ambulatory 09/02/2024 10:45 AM EST [facility] [address] [phone] Jyoti Dickey PA-C [address] [place] [address] F/u Neurology Comment on above: F/u Start: 08-27-2024 End: 08-27-2024 Patient encounter procedure 08/27/2024 1:00 PM EST Office Visit [facility] [address] [facility] [address] [place] [address] Camilla Gaston PA [address] [facility] [address] [place] [address] Arrived [facility] Comment on above: Arrived Start: 08-13-2024 End: 08-13-2024 Patient encounter procedure [facility] Start: 08-05-2024 End: 02-02-2025 Alpha fetoprotein, maternal Alpha fetoprotein, maternal Lab Routine Second trimester Expected: 08/05/2024 (Approximate), Expires: 02/02/2025 [facility] Comment on above: Expected: 08/05/2024 (Approximate), Expires: 02/02/2025 Start: 08-05-2024 End: 08-05-2024 Patient encounter procedure 08/05/2024 8:50 AM EST Routine [facility] [address] [place] [address] Osei Malik DO [address] [place] [address] [facility] Start: 07-03-2024 End: 07-03-2024 Patient encounter procedure [facility] Comment on above: Arrived Start: 06-04-2024 End: 06-04-2024 Patient encounter procedure [facility] Comment on above: Arrived Start: 05-25-2024 Covid-19 Vaccine () Covid-19 Vaccine () [facility] Start: 05-25-2024 Covid-19 Vaccine ( season) Covid-19 Vaccine ( season) [facility] Start: 05-25-2024 Influenza vaccination [facility] Start: 05-23-2024 End: 05-23-2025 ABO/Rh ABO/Rh Lab Routine Missed menses Expected: 05/23/2024 (Approximate), Expires: 05/23/2025 [facility] Comment on above: Expected: 05/23/2024 (Approximate), Expires: 05/23/2025 Start: 05-23-2024 End: 05-23-2025 Blood type and Indirect antibody screen panel - Blood Type and screen Lab Routine Missed menses Expected: 05/23/2024 (Approximate), Expires: 05/23/2025 [facility] Work Phone: Comment on above: Expected: 05/23/2024 (Approximate), Expires: 05/23/2025 Start: 05-23-2024 End: 05-23-2025 US Pelvis transvaginal US OB transvaginal Imaging Routine Missed menses Expected: 05/23/2024 (Approximate), Expires: 05/23/2025 [facility] Comment on above: Expected: 05/23/2024 (Approximate), Expires: 05/23/2025 Start: 05-23-2024 End: 05-23-2024 ambulatory 05/23/2024 9:00 AM EDT Initial [facility] [address] [place] [address] [facility] Start: 05-23-2024 End: 05-23-2024 Professional / ancillary services management 05/23/2024 8:30 AM EDT Ancillary Procedure [facility] [address] [place] [address] [facility] Start: 05-20-2024 End: 05-20-2024 Patient encounter procedure 05/20/2024 9:30 AM EDT Office Visit [facility] [address] [place] [address] [place] [address] Camilla Gaston PA [address] [place] [address] [place] [address] Arrived [facility] Comment on above: Arrived Start: 04-20-2024 Urine microalbumin profile DTaP,Tdap,Td Vaccine (7 - Td or Tdap) [facility] Start: 09-24-2023 Depression Assessment Depression Ass [facility] Start: 05-25-2023 Covid-19 Vaccine () Covid-19 Vaccine () [facility] Start: 05-25-2023 Influenza vaccination [facility] Start: 04-25-2023 [facility] Start: 04-06-2023 FUV, Provider: Annalee Maza, Status: Pen, Time: 2:40 PM FUV, Provider: Annalee Maza, Status: Pen, Time: 2:40 PM -[facility] [email or web address] [address] DO Work Phone: Start: 2022 PAP TESTING PAP TESTING [facility] Start: 2022 Screening for malign ant neoplasm of cervix [facility] Start: 10-13-2022 FUV, Provider: Annalee Maza, Status: Pen, Time: 9:20 AM FUV, Provider: Annalee Maza, Status: Pen, Time: 9:20 AM [facility] 320 DO Work Phone: Start: 09-24-2022 DEPRESSION ASSESSMENT DEPRESSION ASS [facility] Start: 09-11-2022 FUV, Provider: Melodie Alcaraz, Status: Pen, Time: 9:30 AM FUV, Provider: Melodie Alcaraz, Status: Pen, Time: 9:30 AM -[facility] 250 DO Work Phone: Start: 09-11-2022 EVENT EZEKIEL, Provider : HERIBERTO SINGH MANAGING MEMBER 1,[id number], Status: Pen, Time: 8:30 AM EVENT EZEKIEL, Provider: HERIBERTO SINGH MANAGING MEMBER 1,[id number], Status: Pen, Time: 8:30 AM -[facility] [address] DO Work Phone: Start: 08-14-2022 EVENT EZEKIEL, Provider : [facility] ION MANAGING MEMBER 1,[id number], Status: Pen, Time: 10:00 AM EVENT EZEKIEL, Provider: ARACELI ION MANAGING MEMBER 1,[id number], Status: Pen, Time: 10:00 AM -[facility] 250 DO Work Phone: Start: 07-21-2022 NPVRFRL, Provider: Annalee Maza, Status: Pen, Time: 7:20 AM NPVRFRL, Provider: Annalee Maza, Status: Pen, Time: 7:20 AM -[facility] 250 DO Work Phone: Start: 07-10-2022 FUV, Provider: Melodie Alcaraz, Status: Pen, Time: 10:45 AM FUV, Provider: Melodie Alcaraz, Status: Pen, Time: 10:45 AM [facility] 250 DO Work Phone: Start: 06-05-2022 [facility], Provider: Annalee Maza, Status: Pen, Time: 10:00 AM [facility], Provider: Annalee Maza, Status: Pen, Time: 10:00 AM -[facility] 250 DO Work Phone: Start: 05-25-2022 Influenza vaccination [facility] Start: 05-18-2022 FUV, Provider: Melodie Alcaraz, Status: Pen, Time: 9:15 AM FUV, Provider: Melodie Alcaraz, Status: Pen, Time: 9:15 AM -[facility] 250 DO Work Phone: Start: 05-08-2022 End: 05-08-2022 Patient encounter procedure [facility] Start: 05-03-2022 SURGNON[facility], Provider: María Elena Freire, Status: Pen, Time: 10:00 AM [facility], Provider: María Elena Freire, Status: Pen, Time: 10:00 AM [facility] 250 DO Work Phone: Start: 03-28-2022 EVENT EZEKIEL, Provider : HERIBERTO SINGH MANAGING MEMBER 1,[id number], Status: Pen, Time: 8:00 AM EVENT EZEKIEL, Provider: HERIBERTO SINGH MANAGING MEMBER 1,[id number], Status: Pen, Time: 8:00 AM [facility] 250 DO Work Phone: Start: 01-25-2022 End: 03-27-2022 Chronic hepatitis differentiation between hepatitis B and C virus panel - Serum or Plasma [facility] Work Phone: Comment on above: Expected: 01/25/2022 , Expires: 03/27/2022 Start: 01-25-2022 End: 03-27-2022 Complement C1 esterase inhibitor [Mass/volume] in Serum or Plasma [facility] Work Phone: Comment on above: Expected: 01/25/2022 , Expires: 03/27/2022 Start: 01-25-2022 End: 03-27-2022 Complement C2 [Mass/volume] in Serum or Plasma [facility] Work Phone: Comment on above: Expected: 01/25/2022 , Expires: 03/27/2022 Start: 09-24-2021 DEPRESSION ASSESSMENT DEPRESSION ASS ESSMENT [facility] Start: 06-16-2021 COVID-19 VACCINE (3 - Booster for Pfizer series) COVID-19 VACCINE (3 - Booster for Pfizer series) [facility] Start: 03-11-2021 COVID-19 VACCINE (3 - Booster for Pfizer series) COVID-19 VACCINE (3 - Booster for Pfizer series) [facility] Start: 02-11-2021 COVID-19 VACCINE (3 - Pfizer risk series) COVID-19 VACCINE (3 - Pfizer risk series) [facility] Start: 2020 SHINGRIX VACCINE (1 of 2) VANG GRIX VACCINE (1 of 2) [facility] Start: 2020 Urine microalbumin profile [facility] Start: 12-03-2019 Adult BMI Follow Up Plan Adult BMI Follow Up Plan [facility] Start: 12-03-2019 Adult BMI Screening Adult BMI Screen ing [facility] Start: 12-03-2019 Anxiety Screening Anxiety Screening [facility] Start: 12-03-2019 CHLAMYDIA SCREENING (1824) CHLAMYDIA SCREENING (18) [facility] Start: 12-03-2019 Depression Screening Depression Scre ening [facility] Start: 12-03-2019 GC (GONORRHEA) SCREE NINI (18-24) GC (GONORRHEA) SCREENING () [facility] Start: 12-03-2019 HEPATITIS C SCREENING HEPATITIS C SC REENING [facility] Start: 12-03-2019 HIV SCREENING HIV SCREENING [facility] Start: 12-03-2019 HIV screening HIV Screening [facility] Start: 12-03-2019 Screening for Chlamy taylor trachomatis Chlamydia Screening () [facility] Start: 2017 Meningococcal B Vacc ine: Consider Based On Risk (1 of 2 - Patient Seeks Protection) Meningococcal B Vaccine: Consider Based On Risk (1 of 2 - Patient Seeks Protection) [facility] Start: 12-03-2015 PEDS TO ADULT TRANSI TION ANNUAL ASSESSMENT PEDS TO ADULT TRANSITION ANNUAL ASSESSMENT [facility] Start: 2013 Adult depression screening assessment DEPRESSION SCREENING [facility] Start: 2013 PEDS TO ADULT TRANSI TION INITIAL DISCUSSION PEDS TO ADULT TRANSITION INITIAL DISCUSSION [facility] Start: 2013 Tobacco Screening Tobacco Screening [facility] Start: 2012 HPV VACCINE (1 - 2-d ose series) HPV VACCINE (1 - 2-dose series) [facility] Start: 12-03-2011 MENINGOCOCCAL B: 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 based on risk (1 of 2 - Risk Bexsero 2-dose series) MENINGOCOCCAL B: Consider based on risk (1 of 2 - Risk Bexsero 2-dose series) [facility] Start: 2010 HPV Vaccine (1 - 2-d ose series) HPV Vaccine (1 - 2-dose series) [facility] Start: 2010 HPV VACCINES (1 - 2- dose series) HPV VACCINES (1 - 2-dose series) [facility] Start: 2008 DTaP/Tdap/Td VACCINE S (1 - Tdap) DTaP/Tdap/Td VACCINES (1 - Tdap) [facility] Start: 12-03-2007 PNEUMOCOCCAL (1 - PCV) PNEUMOCOCCAL (1 - PCV) [facility] Start: 2002 MMR VACCINES (1 of 1 - Standard series) MMR VACCINES (1 of 1 - Standard series) [facility] Start: 2002 VARICELLA VACCINES ( 1 of 2 - 2-dose childhood series) VARICELLA VACCINES (1 of 2 - 2-dose childhood series) [facility] Start: 06-04-2002 COVID-19 Vaccine (#1) COVID-19 Vacci ne (#1) [facility] Start: 2001 HEPATITIS B (1 of 3 - 3-dose series) HEPATITIS B (1 of 3 - 3-dose series) [facility] Start: 2001 Hepatitis B Vaccine (1 of 3 - 3-dose series) Hepatitis B Vaccine (1 of 3 - 3-dose series) [facility] Start: 2001 HEPATITIS B VACCINES (1 of 3 - 3-dose series) HEPATITIS B VACCINES (1 of 3 - 3-dose series) [facility] Start: 2001 Screening for Chlamy taylor trachomatis Chlamydia Screening [facility] Bacteria identified in Urine by Culture Urine culture Microbiology Routine Missed menses Ordered: 05/23/2024 [facility] Comment on above: Ordered: 05/23/2024 CBC W Auto Different ial panel - Blood CBC and differential Lab Routine Missed menses Ordered: 05/23/2024 [facility] Comment on above: Ordered: 05/23/2024 CHLAMYDIA TRACHOMATI S (GENITO/STI) CHLAMYDIA TRACHOMATIS (GENITO/STI) Lab Routine STD exposure Ordered: 08/05/2024 [facility] Comment on above: Ordered: 08/05/2024 Cytology Cervical or vaginal smear or scraping study Pap Smear Pathology and Cytology Routine Well woman exam with routine gynecological exam Ordered: 08/05/2024 [facility] Comment on above: Ordered: 08/05/2024 Hemoglobin A1c/Hemoglobin.total in Blood Hemoglobin A1c Lab Routine Missed menses Ordered: 05/23/2024 [facility] Comment on above: Ordered: 05/23/2024 Hepatitis B virus ramirez rface Ag [Presence] in Serum or Plasma by Immunoassay Hepatitis B surface antigen Lab Routine Missed menses Ordered: 05/23/2024 [facility] Comment on above: Ordered: 05/23/2024 Hepatitis C virus Ab [Presence] in Serum or Plasma by Immunoassay Hepatitis C antibody Lab Routine Missed menses Ordered: 05/23/2024 [facility] Comment on above: Ordered: 05/23/2024 HIV-1/HIV-2 antigen/antibody combination immunoassay HIV-1 and HIV-2 antibodies Lab Routine Missed menses Ordered: 05/23/2024 [facility] Comment on above: Ordered: 05/23/2024 Neisseria gonorrhoea e DNA [Presence] in Unspecified specimen by PERFECTO with probe detection Neisseria gonorrhea DNA probe, direct Lab Routine STD exposure Ordered: 08/05/2024 [facility] Comment on above: Ordered: 08/05/2024 Patient Education [facility] Work Phone: Patient referral [facility] Work Phone: Reagin Ab [Presence] in Serum by RPR RPR Lab Routine Missed menses Ordered: 05/23/2024 [facility] Comment on above: Ordered: 05/23/2024 Rubella antibody, IgG Rubella an tibody, IgG Lab Routine Missed menses Ordered: 05/23/2024 [facility] Comment on above: Ordered: 05/23/2024 SURESWAB(R) ADVANCED VAGINITIS PLUS, TMA SURESWAB(R) ADVANCED VAGINITIS PLUS, TMA Pathology and Cytology Routine Vaginal discharge Ordered: 08/05/2024 [facility] Work Phone: Comment on above: Ordered: 08/05/2024 End: 08-04-2024 XR KNEE GENERAL 4V AP BOTH/PA BOTH/LAT/MERC RIGHT XR KNEE GENERAL 4V AP BOTH/PA BOTH/LAT/MERC RIGHT Radiology Routine Right knee pain, unspecified chronicity 1 Occurrences starting 07/06/2023 until 08/04/2024 [facility] Work Phone: Comment on above: 1 Occurrences starti ng 07/06/2023 until 08/04/2024 [facility] Immunizations Immunization Date Immunization Notes Care Provider Cheryl will 07-24-2024 influenza, seasonal, injectable, preservative free Camilla Hemmer PA Work Phone: [facility] Work Phone: 03-25-2024 tetanus toxoid, redu richar diphtheria toxoid, and acellular pertussis vaccine, adsorbed Camilla TOLBERT Work Phone: [facility] 07-05-2023 influenza virus vaccine, unspecified formulation Celeste Watson [facility] 07-05-2023 influenza, injectabl e, quadrivalent, preservative free Camilla TOLBERT Work Phone: [facility] 01-14-2021 Pfizer-BioNTech COVID-19 Vacc 30 MCG/0.3ML Intramuscular Suspension Ibis A Blas Work Phone: [facility] Comment on above: Result Comment: 2023: TPVAL 12-24-2020 Pfizer-BioNTech COVID-19 Vacc 30 MCG/0.3ML Intramuscular Suspension Ibis A Blas Work Phone: [facility] Comment on above: Result Comment: 2023: TPVAL 12-11-2017 meningococcal polysaccharide (groups A, C, Y and W-135) diphtheria toxoid conjugate vaccine (MCV4P) Christina Pearce Other [facility] Other 12-11-2017 meningococcal ACWY vaccine, unspecified formulation Celeste Watson [facility] 11-06-2014 human papilloma viru s vaccine, quadrivalent Christina Pearce Other [facility] Other 11-06-2014 HPV, unspecified formulation Ibis A Blas Work Phone: [facility] 250 DO Work Phone: 06-26-2014 HPV, unspecified formulation Celeste Watson [facility] 06-26-2014 human papilloma viru s vaccine, quadrivalent Christina Portia Other [facility] Other 04-20-2014 human papilloma viru s vaccine, quadrivalent Christina Portia Other [facility] Other 04-20-2014 meningococcal polysaccharide (groups A, C, Y and W-135) diphtheria toxoid conjugate vaccine (MCV4P) Christina Portia Other [facility] Other 04-20-2014 tetanus toxoid, redu richar diphtheria toxoid, and acellular pertussis vaccine, adsorbed Christina Portia Other [facility] 04-20-2014 HPV, unspecified formulation Celeste Watson [facility] 04-20-2014 meningococcal ACWY vaccine, unspecified formulation Celeste Watson [facility] 12-27-2006 diphtheria, tetanus toxoids and acellular pertussis vaccine, unspecified formulation Ibis A Blas Work Phone: [facility] [place] 250 DO Work Phone: 12-27-2006 DTaP, unspecified formulation Celeste Rinradha [facility] 12-27-2006 measles, mumps, rubella, and varicella virus vaccine Ibis A Blas Work Phone: [facility] 12-27-2006 poliovirus vaccine, inactivated Ibis A Blas Work Phone: [facility] [place] 250 DO Work Phone: 12-27-2006 poliovirus vaccine, unspecified formulation [email or web address] [facility] 02-06-2003 diphtheria, tetanus toxoids and acellular pertussis vaccine, unspecified formulation Ibis A Blas Work Phone: [place] [address] DO Work Phone: 02-06-2003 DTaP, unspecified formulation [email or web address] [facility] 02-06-2003 haemophilus influenz ae type b vaccine, conjugate unspecified formulation Ibis A Blas Work Phone: [place] [address] DO Work Phone: 02-06-2003 Hib, unspecified formulation Celeste Lumenz [facility] 02-06-2003 measles, mumps and rubella virus vaccine Ibis A Blas Work Phone: [facility] 02-06-2003 varicella virus vaccine Susan ica A Blas Work Phone: [facility] 07-02-2002 diphtheria, tetanus toxoids and acellular pertussis vaccine, unspecified formulation Ibis A Blas Work Phone: [place] [address] DO Work Phone: 07-02-2002 DTaP, unspecified formulation [email or web address] [facility] 07-02-2002 haemophilus influenz ae type b vaccine, conjugate unspecified formulation Ibis A Blas Work Phone: [place] [address] DO Work Phone: 07-02-2002 Hib, unspecified formulation [email or web address] [facility] 07-02-2002 pneumococcal conjuga te vaccine, 7 valent Ibis A Blas Work Phone: [place] [address] DO Work Phone: 07-02-2002 poliovirus vaccine, inactivated Ibis A Blas Work Phone: [place] [address] DO Work Phone: 07-02-2002 poliovirus vaccine, unspecified formulation Celeste Rinkes [facility] 05-19-2002 diphtheria, tetanus toxoids and acellular pertussis vaccine, unspecified formulation Ibis A Blas Work Phone: [place] [id number] DO Work Phone: 05-19-2002 DTaP, unspecified formulation Celeste Rinkes [facility] 05-19-2002 haemophilus influenz ae type b conjugate and Hepatitis B vaccine Ibis A Blas Work Phone: [place] [address] DO Work Phone: 05-19-2002 pneumococcal conjuga te vaccine, 7 valent Ibis A Blas Work Phone: [place] [address] DO Work Phone: 05-19-2002 poliovirus vaccine, inactivated Ibis A Blas Work Phone: [place] [address] DO Work Phone: 05-19-2002 poliovirus vaccine, unspecified formulation Celeste Rinkes [facility] 03-05-2002 diphtheria, tetanus toxoids and acellular pertussis vaccine, unspecified formulation Ibis A Blas Work Phone: [place] [address] DO Work Phone: 03-05-2002 DTaP, unspecified formulation Celeste Rinkes [facility] 03-05-2002 haemophilus influenz ae type b conjugate and Hepatitis B vaccine Ibis A Blas Work Phone: [facility] 377 DO Work Phone: 03-05-2002 poliovirus vaccine, inactivated Ibis A Blas Work Phone: [facility] 250 DO Work Phone: 03-05-2002 poliovirus vaccine, unspecified formulation Celeste Watson [facility] 2001 hepatitis B vaccine, pediatric or pediatric/adolescent dosage Ibis A Blas Work Phone: [facility] Payers Date Payer Category Payer Self-pay [id number] 2023 Unknown [id number] 2022 Medicaid O [facility] MEDIC A[facility] [id number] 2021 Private Health Insurance [id number] .[id number]. [id number] 2021 Private Health Insurance [id number] 2.16.840.1.068095.19 2020 Private Health Insurance [facility] CHOICE PLUS [id number] 2020-Present [phone] [address] [place] [address] O [id number]. [id number] 2020 Unknown [id number] 2017 Managed Care Other (unspecified) [id number]. [id number] 2013 Medicaid [facility] MEDICA[facility] [id number] 2013-Present [phone] [address] [place] [address] Medicaid [id number] [id number]. [id number] 2013 Medicaid [id number]. 1.13.159.2. [id number] 2007 Unknown [id number] 2.16840.1.817768.19 2001 Unknown [id number] 2.16.840.1.160750.3.579.2. 1068 2001 Unknown [id number] 2.16.840.1.240865.3.579.2. 594 2001 Unknown [id number] 2.16.840.1.847201.3.579.2. 594 2001 Unknown [id number] 2.16.840.1.702514.3.579.2. 356 2001 Unknown [id number] 2.16.840.1.445291.3.579.2. 356 2001 Unknown [id number] 2.16.840.1.288858.3.579.2. 356 2001 Unknown [id number] 2.16.840.1.172078.3.579.2. 356 2001 Unknown [id number] 2.16.840.1.308646.3.579.2. 356 2001 Unknown [id number] 2.16.840.1.768937.3.579.2. 356 2001 Unknown [id number] 2.16.840.1.295907.3.579.2. 356 2001 Unknown [id number] 2.16.840.1.955893.3.579.2. 356 2001 Unknown [id number] 2.16.840.1.618780.3.579.2. 727 2001 Unknown [id number] 2.16.840.1.659121.3.579.2. 727 2001 Unknown [id number] 2.16.840.1.898730.3.579.2. 727 2001 Unknown [id number] 2.16.840.1.366914.3.579.2. 727 2001 Unknown [id number] 2.16.840.1.312036.3.579.2. 727 2001 Unknown [id number] 2.16.840.1.007323.3.579.2. 1286 2001 Unknown [id number] 2.16.840.1.713263.3.579.2. 1286 2001 Unknown [id number] 2.16.840.1.419768.3.579.2. 1286 2001 Unknown [id number] 2.16.840.1.007001.3.579.2. 1286 2001 Unknown [id number] 2.16.840.1.946735.3.579.2. 1259 2001 Unknown [id number] 2.16.840.1.607730.3.579.2. 1259 2001 Unknown [id number] 2.16.840.1.491683.3.579.2. 1259 2001 Unknown [id number] 2.16.840.1.428815.3.579.2. 1259 2001 Unknown [id number] 2.16.840.1.354807.3.579.2. 1259 2001 Unknown [id number] 2.16.840.1.993653.3.579.2. 1258 2001 Unknown [id number] 2.16.840.1.933861.3.579.2. 9 2001 Unknown [id number] 2.16.840.1.564038.3.579.2. 1258 2001 Unknown [id number] 2.16.840.1.595601.3.579.2. 1258 2001 Unknown [id number] 2.16.840.1.725407.3.579.2. 1258 2001 Unknown [id number] 2.16.840.1.852620.3.579.2. 1258 2001 Unknown [id number] 2.16840.1.878974.3.579.2. 1258 2001 Unknown [id number] 2.16.840.1.226526.3.579.2. 1258 2001 Unknown [id number] 2.16.840.1.554715.3.579.2. 1258 2001 Unknown [id number] 2.16.840.1.119702.3.579.2. 1258 2001 Unknown [id number] 2.16840.1.489983.3.579.2. 1258 2001 Unknown [id number] 2.16.840.1.118806.3.579.2. 1259 Unknown Unknown [place] BC/BS [id number] Unknown [id number] 2.16.840.1.540320.3.579.2. 531 Social History Date Type Detail Facility Tobacco smoking stat [facility] Tobacco smoking consumption unknown [facility] Work Phone: Start: 2001 Sex Assigned At Not on file [facility] Start: 01-15-2022 End: 07-31-2022 Exposure to SARS-CoV-2 (event) Not sure [facility] Start: 11-03-2020 End: 12-28-2022 Sex Assigned At [facility] Start: 11-03-2020 End: 12-28-2022 No alcohol use No alcohol use [facility] Comment on above: very rarely soda; Start: 02-19-2018 End: 09-20-2019 Tobacco smoking status NHIS Never smoked tobacco (finding) [facility] Start: 2001 Sex Assigned At Female F [facility] Start: 02-19-2018 End: 07-31-2022 Tobacco use and exposure Smokeless tobacco non-user [facility] Adult Depression Screening Assessment 0 [facility] Start: 09-29-2023 Gender identity Identifies as female gender (finding) [facility] Start: 06-04-2024 End: 07-07-2024 Alcoholic beverage intake Ex-drinker (finding) [facility] Do you belong to any clubs or organizations such as jainism groups, unions, fraternal or athletic groups, or [...] Start: 04-27-2015 End: 09-26-2024 Sex Female (finding) [facility] NEGATED: Highlighted rowStart: NINF History of tobacco use Passive smoker [facility] Medical Equipment Procedure Code Equipment Code Equipment Origin al Text Equipment Identifier Dates 1 strip by In Vi tro route Daily Use in the morning prior to breakfast, 1 hour after each meal for a total of 4times daily. [id number] Start: 09-18-2024 End: 10-18-2024 1 each by In Vit ro route Daily Use to check FSBS four times daily [id number] Start: 09-18-2024 End: 10-18-2024 Clinical Notes 09-24-2007 to 10-29-2024 Camillaslava Bar, PATHOLOGY LABORATORY TECHNOLOGIST - 10/29/2024 3:50 PM Titusslava Christiansonrell, PATHOLOGY LABORATORY TECHNOLOGIST - 10/15/2024 3:30 PM Titi Mendes, [facility] - 10/02/2024 11:00 AM ESTTelephone Encounter - Pilar Alonso, [facility] - 09/25/2024 12:42 PM EST Note [...] nursing note reviewed. Exam conducted with a signals intelligence superintendent present. Vitals: Estimated body mass index is [...] Osei Malik DO documented in this encounter [facility] 10-15-2024 History of Present illness Narrative [...] nursing note reviewed. Exam conducted with a signals intelligence superintendent present. Vitals: Estimated body mass index is [...] Osei Malik DO documented in this encounter [facility] 10-02-2024 History of Present illness [...] nursing note reviewed. Exam conducted with a signals intelligence superintendent present. Vitals: Estimated body mass index is [...] Osei Malik DO documented in this encounter [facility] 09-25-2024 Telephone encounter Note Patient [...] today. Patient was advised to report to [facility] for check and she was asking if she could go to [facility] as that's closer she was advised we prefer [place] but she can go where she is comfortable. Patient states will go to [facility] as she is at work and that's closer right now. Patient advised note would be in chart. [facility] Work Phone: 09-25-2024 Miscellaneous Notes [...] today. Patient was advised to report to [facility] for check and she was asking if [...] be in chart. documented in this encounter [facility] 09-18-2024 History of Present illness [...] nursing note reviewed. Exam conducted with a signals intelligence superintendent present. Vitals: Estimated body mass index is [...] Osei Malik DO documented in this encounter [facility] 09-03-2024 History of Present illness [...] Osei Malik DO documented in this encounter [facility] 09-02-2024 History of Present illness Narrative Images from the original note were not included. [facility] Follow-Up VIRTUAL VISIT This is a virtual visit using [employer] Zoom Video Visit. It required patient-provider interaction for the medical decision making as documented below. I have communicated my name and active licensure. The patient's identity and physical location were verified at the time of this visit. Either the patient or their legal customer response representative has been informed of the risks [...] which included preparing to see the patient, [id number] patient care, completing clinical documentation, obtaining and/or reviewing separately obtained history, performing a medically appropriate examination, and counseling and educating the patient/family/caregiver. Jyoti Dickey PA-C Neuromuscular Medicine [address] [place]. [address] Appointment: [phone] During our virtual visit encounter we discussed [...] bright light?: Mild documented in this encounter [facility] 09-02-2024 Note HNO ID: [id number] Author: JYOTI DICKEY PA-C Service: ? Author Type: Physician Product Design Specialist Type: Progress Notes Filed: 09/02/2024 11:21 Note Text: [facility] Follow-Up VIRTUAL VISIT This is a virtual visit using [employer] Video Visit. It required patient-provider interaction for the medical decision making as documented below. I have communicated my name and active licensure. The patient's identity and physical location were verified at the time of this visit. Either the patient or their legal customer response representative has been informed of the risks [...] t (more content not included)... [facility] 08-29-2024 Miscellaneous Notes Trials Manager spoke to patient . Patient has complains of SOB which she states is mainly at night time. She has recently seen her PCP who stated that her lungs are tight/restricted and prescribed her an inhaler. Today the patient is feeling better and states that when she checked her SPO2 today it was at 96%. Trials Manager advised patient to monitor and if her O2 Sat falls under 95% and/or the inhaler does not help to present to her nearest ER. Patient verbalized understanding. documented in this encounter [facility] 08-29-2024 Telephone encounter Note Trials Manager spoke to patient . Patient has complains of SOB which she states is mainly at night time. She has recently seen her PCP who stated that her lungs are tight/restricted and prescribed her an inhaler. Today the patient is feeling better and states that when she checked her SPO2 today it was at 96%. Trials Manager advised patient to monitor and if her O2 Sat falls under 95% and/or the inhaler does not help to present to her nearest ER. Patient verbalized understanding. [facility] 08-27-2024 Telephone encounter Note Alternative inhaler requested by pharmacy. [facility] 08-27-2024 Miscellaneous Notes Alternative inhaler requested by pharmacy. documented in this encounter [facility] 08-27-2024 History of Present illness Narrative Images from the original note were not included. Subjective Patient ID: Madyson Mai is a 23 y.o. female who presents for asthma. Madyson is present today for evaluation of asthma. Admits she is 22 weeks with twins, she is not sure if that is what is flaring up her asthma. She has not see her search engine optimization consultant in a couple of years and her [...] visit: Mild intermittent asthma with acute exacerbation (CMS/[facility]) - fluticasone (Flovent HFA) 110 MCG/ACT inhaler; [...] fail to improve. documented in this encounter [facility] 08-13-2024 History of Present illness [...] no Have you been seen here at [facility] in a previous ? no Recent ER visits or hospitalizations? no Bring blood sugar log or meter with you today? (Please bring them with you for every visit at [facility]) n/a Flu vaccine (Jul-November)? Yes Any concerns that you would like me to mention to the provider today? no [facility] Consult Note Reason For Consult: HPI: Madyson Mai is a 23 y.o. @ 20w4d who presented for consultation from Dr. Malik, Osei R, DO regarding Chief Complaint Patient presents with [...] Resource Strain: Low Risk (02/25/2024) Received from [facility] Overall Financial Resource Strain (CARDIA) Difficulty of Paying Living Expenses: Not very hard Food Insecurity: No Food Insecurity (08/13/2024) Hunger Screening Food Insecurity - Worry: Never True Food Insecurity - Inability: Never True Transportation Needs: No Transportation Needs (02/25/2024) Received from [facility] PRAPARE - Transportation Lack of Transportation (Medical): No Lack of Transportation (Non-Medical): No Physical Activity: Inactive (02/25/2024) Received from [facility] Exercise Vital Sign Days of Exercise per Week: 0 days Minutes of Exercise per Session: 0 min Stress: No Stress Concern Present (02/25/2024) Received from [facility] [employer] [place] [employer] - Occupational Stress Questionnaire Feeling of Stress : Only a little Social Connections: Moderately Integrated (02/25/2024) Received from [facility] Social Connection and Isolation Panel [NHANES] Frequency of Communication with Friends and Family: More than three times a week Frequency of Social Gatherings with Friends and Family: Three times a week Attends [employer] Services: More than 4 times per year Active Member of Clubs or Organizations: No Attends Club or Organization Meetings: Patient declined Marital Status: Interpersonal Safety: Not on file Housing Instability: Low Risk (02/25/2024) Received from [facility] Housing Stability Vital Sign Unable [...] intervening membrane. I discussed with Ms. Madyson M Pau today the increased risks of twin pregnancies [...] complications, or both, related to use. The [place] [employer] and the [...] tachycardia syndrome) She follows with Neurology at [facility]. Last visit was on 07/02/2024. External records reviewed. 07/02/2024 - General Neurology, Joie Seaman, JOHNNY.PHOTOENGRAVING PRINTER ASSESSMENT Madyson Mai is a 23 year [...] continue with routine care in your office [facility], the CDC, and other organizations representing maternal and public health professionals recommend that , , and lactating people and those considering receive the COVID-19 vaccination. Vaccination is the best method to reduce maternal and complications of SARS-CoV-2 infection. This document was created with [employer] technology. Though I make every effort to review the dictation as it is transcribed, on occasion the spoken word can be misinterpreted by the technology leading to inappropriate words, phrases, or sentences. This note is addressed to the requesting provider as a consultation for clinical guidance. Specific medical abbreviations are occasionally used and those are generally approved by the [place]?Board of?Obstetrics and?Gynecology?as well as?Loretta s abbreviations. The above plan of care was based solely on the diagnoses for which a consultation was requested. ?More frequent testing may be indicated based on her other medical/obstetrical conditions. The management of other or medical conditions is beyond the scope of requested consultation and will continue to be followed by the primary long chain dyeing machine operator or primary care provider. Thank you for [...] and communicating with other health home care administrator (not separately reported) Documenting clinical information in the electronic or other health record Independently interpreting results (not separately reported) and communicating results to the patient/family/caregiver Care coordination (not separately reported) documented in this encounter [facility] 08-06-2024 Telephone encounter Note Can we have her schedule for a follow up appointment. Can be virtual or in person. Thanks, AM [facility] Work Phone: 08-06-2024 Miscellaneous Notes Can we have her schedule for a follow up appointment. Can be virtual or in person. Thanks, AM documented in this encounter [facility] 08-05-2024 History of Present illness Narrative Reason [...] nursing note reviewed. Exam conducted with a signals intelligence superintendent present. Vitals: Estimated body mass index is [...] of: TOMASZ Rizvi documented in this encounter [facility] 07-03-2024 History of Present illness [...] current . Patient is being referred to [facility] for her twin , gave her information about who she will be seeing there. No orders of the defined types were placed in this encounter. Follow Up: Patient is to return to office in 4 weeks for routine OB appointment. Documented by Ibis Sandoval on behalf of: TOMASZ Rizvi documented in this encounter [facility] 07-02-2024 History of Present illness Narrative Images from the original note were not included. [facility] Follow Up / Established Virtual Visit I have communicated my name and active licensure. The patient's identity and physical location were verified at the time of this visit. Either the patient or their legal customer response representative has been informed of the risks and benefits of -- and alternatives to -- treatment through a remote evaluation and consents to proceed with the evaluation remotely. Individuals who were included in, or assisted with the encounter were: Madyson Mai Joie Seaman APRN.PHOTOENGRAVING PRINTER Chief Complaint/Issues: Madyson Mai is a 23 year old female seen in the [facility] for: POTS Most [...] Plan 07/02/2024 - General Neurology, Joie Seaman APRN.PHOTOENGRAVING PRINTER ASSESSMENT Madyson Mai is a 23 year [...] which included preparing to see the patient, glau-rm-eppc patient care, completing clinical documentation, obtaining and/or reviewing separately obtained history, performing a medically appropriate examination, counseling and educating the patient/family/caregiver, and ordering medications, tests, or procedures. Joie Seaman, NET SQL DEVELOPER.PHOTOENGRAVING PRINTER 06/28/2024 PROMIS Global [employer] Physical Health Summary [...] and warrants attention documented in this encounter [facility] 07-02-2024 Note HNO ID: [id number] Author: JOIE SEAMAN APRN.CNP Service: ? Author Type: Nurse Practitioner Type: Progress Notes Filed: 07/02/2024 19:57 Note Text: [facility] Follow Up / Established Virtual Visit I have communicated my name and active licensure. The patient's identity and physical location were verified at the time of this visit. Either the patient or their legal customer response representative has been informed of the risks and benefits of -- and alternatives to -- treatment through a remote evaluation and consents to proceed with the evaluation remotely. Individuals who were included in, or assisted with the encounter were: Madyson Latesha Pau Seaman APRN.CNP Chief Complaint/Issues: Madyson Mai is a 23 year old female seen in the [facility] for: POTS Most [...] Plan 07/02/2024 - General Neurology, Joie Seaman APRN.PHOTOENGRAVING PRINTER ASSESSMENT Madyson Mai is a 23 year [...] S (more content not included)... [facility] 06-04-2024 History of Present illness Narrative [...] nursing note reviewed. Exam conducted with a signals intelligence superintendent present. Vitals: Estimated body mass index is [...] possibly adding medication. Pt being referred to [facility] for TWIN gestation. Expectations throughout regarding labs, ultrasounds, and appointments have been discussed with the patient in detail. It was reiterated that the patient is to drink 6-8 glasses of water a day, eat 6 small meals a day, do not consume raw or undercooked meat, and stay away from [facility]. Patient has been consulted regarding any further do's and don'ts of . Patient voiced understanding and all questions and concerns were answered. Orders Placed This Encounter Procedures POCT urinalysis dipstick manually resulted Follow Up: Patient is to return in 4 weeks for routine OB appointment. Documented by Camilla Bar LPN on behalf of: Osei Malik DO documented in this encounter [facility] 05-23-2024 History of Present illness [...] providers found * documented in this encounter [facility] 05-20-2024 History of Present illness [...] topical cream for less systemic absorption. Consider rn long term care. Can provide pt with referral to PT if symptoms do not improve with the above. X-rays not yet indicated, especially as pt is . Follow up if symptoms worsen or fail to improve. documented in this encounter [facility] 03-20-2024 History of Present illness Narrative Images from the original note were not included. [facility] Follow-Up VIRTUAL VISIT This is a virtual visit using [employer] Video Visit. It required patient-provider interaction for the medical decision making as documented below. I have communicated my name and active licensure. The patient's identity and physical location were verified at the time of this visit. Either the patient or their legal customer response representative has been informed of the risks [...] which included preparing to see the patient, rhni-nz-ecuw patient care, completing clinical documentation, obtaining and/or reviewing separately obtained history, performing a medically appropriate examination, counseling and educating the patient/family/caregiver, and ordering medications, tests, or procedures. Jyoti Dickey PA-C Neuromuscular Medicine [address] [place] [address]. [address] Appointment: [phone] During our virtual visit encounter we discussed [...] problem? : Mild documented in this encounter [facility] 03-20-2024 Note HNO ID: [id number] Author: JYOTI DICKEY PA-C Service: ? Author Type: Physician Product Design Specialist Type: Progress Notes Filed: 03/20/2024 15:17 Note Text: [facility] Neuromuscular Medicine Follow-Up VIRTUAL VISIT This is a virtual visit using MyChart Zoom Video Visit. It required patient-provider interaction for the medical decision making as documented below. I have communicated my name and active licensure. The patient's identity and physical location were verified at the time of this visit. Either the patient or their legal customer response representative has been informed of the risks [...] hea (more content not included)... [facility] 11-30-2023 History of Present illness Narrative Images from the original note were not included. [facility] New Patient Evaluation [...] experienced LOC while walking up the stairs. [place] prodromal symptoms including lightheadedness and tunnel vision. [...] 5/5 Hip Adduction 5/5 5/5 Hip Abduction /5 5/5 Knee Flexion /5 5/5 Knee Extension / 5/5 Ankle Dorsiflexion 01/26 5/5 Ankle Plantarflexion 5/5 5/5 Movement/Coordination Finger-to- nose-finger and ugft-mn-egwc intact bilaterally. No evidence of ataxia arms. [...] and toe vibration. Reflexes Right Left Bicep /4 2/4 Tricep /4 2/4 Brachioradialis 2/4 2/4 Patella 2/4 2/4 Ankle /10/28 No Clonus Negative Babinski (toes [...] which included preparing to see the patient, [id number] patient care, completing clinical documentation, obtaining and/or [...] 11/30/23. Jyoti Dickey PA-C Neuromuscular Medicine [address] [place] [address]. [address] Appointment: [phone] 1. This office note has been dictated [...] problem? : Moderate documented in this encounter [facility] 11-30-2023 Note HNO ID: [id number] Author: JYOTI DICKEY PA-C Service: ? Author Type: Physician Product Design Specialist Type: Progress Notes Filed: 11/30/2023 11:14 Note Text: [facility] New Patient Evaluation [...] experienced LOC while walking up the stairs. [place] prodromal symptoms including lightheadedness and tunnel vision. [...] Tac (more content not included)... [facility] 11-12-2023 Note HNO ID: [id number] Author: ?, ?, ? Service: ? Author [...] completed when applicable. Gauri Harris [facility] 11-12-2023 History of Present illness Narrative [...] applicable. Gauri Harris documented in this encounter [facility] 10-10-2023 Note HNO ID: [id number] Author: AURORA SANTIAGO PA-C Service: ? Author Type: Physician Product Design Specialist Type: Progress Notes Filed: 10/10/2023 16:33 Note Text: [facility] New Patient Evaluation [...] facility-adminis (more content not included)... [facility] 10-10-2023 Note HNO ID: [id number] Author: ANGELIQUE RUTH MD Service: ? Author [...] or VE Triplets were present. [facility] 07-20-2023 Telephone encounter Note Call to Madyson to discuss referral to dysautonomia clinic. Informed her that we are unable to provide dysautonomia evaluation at this time. Provided number for [facility] scheduling service. No other needs at this time. [facility] 07-20-2023 Miscellaneous Notes Call to Madyson to discuss referral to dysautonomia clinic. Informed her that we are unable to provide dysautonomia evaluation at this time. Provided number for [facility] scheduling service. No other needs at this time. documented in this encounter [facility] 07-10-2023 Note HNO ID: [id number] Author: Jose Armando Grey, DO Service: ? Author Type: Physician Type: Progress Notes Filed: 07/10/2023 10:08 AM Note Text: [facility] Office Visit Documentation Note [facility] Sports Medicine Orthopaedic and Rheumatologic [place] HISTORY OF PRESENT ILLNESS (HPI) CHIEF COMPLAINT / REASON FOR VISIT SERVICE DATE: July 10, 2023 PCP: No primary care provider on file. Madyson Schmid is here today at request of Dr. Jose Armando Schmid specifically for consultation of my opinion in regards to the chief complaint listed below. Correspondence will be shared today via the [employer] electronic health record or through regular mail, [...] She need to consider PT or personal counselor. Reaction knee brace Consider [place] toradol, did discuss orthobiologics Follow up: Films prior to visit: Written instructions (see patient instructions) and verbal health education given to patient. Patient verbalizes understanding and agrees with the treatment plan. Jose Armando Grey D.O. [facility] Orthopaedic and Rheumatologic Commissary Clerk, [facility] AND T.E.A.M. Program Team Physician, [facility] Baseball Club Consulting Physician, [place] Martin Nagel, Veneer Clipper [phone] [facility] 07-10-2023 History of Present illness Narrative Images from the original note were not included. [facility] Office Visit Documentation Note [facility] Sports Medicine Orthopaedic and Rheumatologic [place] HISTORY OF PRESENT ILLNESS (HPI) CHIEF COMPLAINT / REASON FOR VISIT SERVICE DATE: July 10, 2023 PCP: No primary care provider on file. Madyson Schmid is here today at request of Dr. Jose Armando Schmid specifically for consultation of my opinion in regards to the chief complaint listed below. Correspondence will be shared today via the [employer] electronic health record or through regular mail, [...] She need to consider PT or personal counselor. Reaction knee brace Consider [place] toradol, did discuss orthobiologics Follow up: Films prior to visit: Written instructions (see patient instructions) and verbal health education given to patient. Patient verbalizes understanding and agrees with the treatment plan. Jose Armando Grey D.O. [facility] Orthopaedic and Rheumatologic Commissary Clerk, [facility] & T.E.A.M. Program Team Physician, [facility] Baseball Club Consulting Physician, [place] Martin Nagel, Veneer Clipper [phone] documented in this encounter [facility] 12-28-2022 History of Present illness Narrative Madyson [...] surgery Evaluated by DR Case ([facility] [place]) in 2020 no rheum issue found and [...] Swollen Glands: No documented in this encounter [facility] 07-31-2022 History of Present illness Narrative Madyson [...] surgery Evaluated by DR Case ([facility] [place]) in 2020 no rheum issue found and [...] Swollen Glands: No documented in this encounter [facility] 07-10-2022 History of Present illness Narrative Most [...] she did get a second opinion in [place], and no change in medication was suggested [...] with paucity of objective findings on the [id number]. Abnormal tilt table test, with a combination [...] will defer that to Dr. Maza -[facility] 250 DO Work Phone: 06-12-2022 Note Pre-procedure Verifi cation and Time Out: Pre-Procedure Verification and Time Out: Procedure Locationbedside PRE-PROCEDURE Verificationcompleted TIME OUT - Final Verificationcompleted immediately prior to procedure start General Information: Anesthesia Critical Care: Non-Anesthesia Date/Time of Procedure: 12-Jun-2022 Post-Procedure Diagnosis: syncope Procedure Name: tilt table test Findings: grossly normal anatomy Procedure performed by: wa Product Design Specialist(s): none Estimated Blood Loss (mL): none Specimen: [...] Last Updated: 14-Jun-2022 11:56 by Annalee Maza) [facility] 03-24-2022 History of Present illness Narrative Patient [...] while walking to the bathroom.She will see search engine optimization consultant in the near future, she had her pulmonary function test which I reviewed, there is concern for chronic asthma, but no reactive airway disease.She has 3 dogs that she had, and 1 cat at home.She is not orthostatic. She is feeling palpitations quite a bit.Results of the pulmonary function test and a Micah of [employer] was reviewed. Also reviewed stress test and [...] that, we will have to schedule at [facility], and patient is okay with driving.4. Lifestyle modifications such as regular aerobic activity as tolerated, excessive sodium intake, and possibly low-dose beta-blockers can be tried. If her breathing gets worse on the beta-blockers, then she should stop it. We will decide after seen by pulmonary, and also after the results of culpable test are available. -[facility] Che[place] DO Work Phone: 03-24-2022 History [...] while walking to the bathroom.She will see search engine optimization consultant in the near future, she had her pulmonary function test which I reviewed, there is concern for chronic asthma, but no reactive airway disease.She has 3 dogs that she had, and 1 cat at home.She is not orthostatic. She is feeling palpitations quite a bit.Results of the pulmonary function test and a Micah of [employer] was reviewed. Also reviewed stress test and [...] that, we will have to schedule at [facility], and patient is okay with driving.4. Lifestyle modifications such as regular aerobic activity as tolerated, excessive sodium intake, and possibly low-dose beta-blockers can be tried. If her breathing gets worse on the beta-blockers, then she should stop it. We will decide after seen by pulmonary, and also after the results of culpable test are available. -[facility] Cheek DO Work Phone: 02-02-2022 Miscellaneous [...] P Mathai, MD documented in this encounter [facility] 01-25-2022 History of Present illness Narrative Madyson [...] February Evaluated by DR Case ([facility]) in 2020 no rheum issue found and [...] February Evaluated by DR Case ([facility] [place]) in 2020 no rheum issue found and [...] Irvin Hanna MD documented in this encounter [facility] 01-10-2022 Evaluation note Encounter Date Diagnosis Assessment Notes Dec, Skin rash (ICD-10 - R21) Dec, Other Transient recurrent color exchange clerk the knees and toes I do [...] will go ahead with her evaluation in [facility]. [employer] Other 01-17-2022 Evaluation note* Encounter Date Diagnosis [...] day as needed for pain and swelling. [employer] Other 07-01-2021 History of Present illness Narrative* [...] heart murmur and has been transferred to [facility] * There is no family [...] needed, treatment options, risks, benefits, and imponderables. [place] [employer] lifestyle changes and behavioral modification discussed. All questions answered in detail. Counseling over 50% visit regarding above. Patientappreciative of care. * At the end the office visit, she did report that she will be seeing an sales support specialist in [place]. We did discuss that she could hold [...] errors as software dictation application being used. -[facility] 320 DO Work Phone: 1(461) 432-549308-25-2020 History of Present illness Narrative* She is [...] exposed to secondhand smoke from her mother. [facility] [employer] DO Work Phone: [phone] History of Present illness Narrative* Patient is [...] brother had to be taken to [facility], and has history of heart murmur. [...] Sincerely, * Melodie alcaraz MD [facility] Work Phone: [phone] 121-311407-01-2020 History of Present illness Narrative* Patient is [...] brother had to be taken to [facility], and has history of heart murmur. [...] arise, * Sincerely, * Melodie alcaraz MD [facility] [address] DO Work Phone: [phone] History of Present illness Narrative* Patient is [...] brother had to be taken to [facility], and has history of heart murmur. [...] arise, * Sincerely, * Melodie alcaraz MD [facility] 250 DO Work Phone: [phone]) 571-379101-01-2008 History general Narrative - Reported* Type Description Date Medical History general health good Surgical History tonsillectomy and adenoidectomy 09/2007 [employer] Other 01-01-2008 History general Narrative - Reported* Type Description Date Medical History general health good Surgical History tonsillectomy and adenoidectomy 09/2007 Surgical History right knee cleaned up scar tiss ue 2020 [employer] Other Chief complaint Narrative - ReportedMADYSON SCHMID is being seen for a cardiovascular evaluation of abnormal test(s) results and dyspnea.-[facility] 250 DO Work Phone: Chixt complaint Narrative - ReportedMADYSON SCHMID is being seen for a cardiovascular evaluation of abnormal test(s) results and dyspnea.[facility] Work Phone: Evaluation + Plan note No data available for this section [facility] Diagnosis Pain and swelling of knee, right- Primary Joint stiffness Stiffness of joint, not elsewhere classified, unspecified site [facility] noteNo assessment information availableGood [facility] Work Phone: Evaluation note* Diagnosis Pain and swelling of knee, right- Primary Joint stiffness Stiffness of joint, not elsewhere classified, unspecified site Inflammatory arthritis Unspecified inflammatory polyarthropathy [facility] Pain and swelling of knee, right- Primary Joint stiffness Stiffness of joint, not elsewhere classified, unspecified site [facility] Diagnosis Right knee pain, unspecified chronicity- Primary [facility]* Diagnosis Chronic pain of right knee- Primary Tendinopathy of gluteal region Unspecified disorder of synovium, tendon, and bursa [facility]* Diagnosis Orthostatic lightheadedness- Primary Dizziness and giddiness [facility]* Diagnosis POTS (postural orthostatic tachycardia syndrome)- Primary Tachycardia, unspecified [facility] Diagnosis POTS (postural orthostatic tachycardia syndrome)- Primary Tachycardia, unspecified [facility]* Diagnosis POTS (postural orthostatic tachycardia syndrome)- Primary Tachycardia, unspecified Near syncope Syncope and collapse [facility]* Diagnosis Second trimester state, incidental 14 weeks gestation of [facility] Diagnosis Thumb pain, right- [...] Leg cramping Heartburn documented in this encounter [facility]* Diagnosis Dichorionic diamniotic twin in second trimester- Primary POTS (postural orthostatic tachycardia syndrome) Unspecified tachycardia Asthma during 20 weeks gestation of [facility] Diagnosis Dichorionic diamniotic twin in second trimester- Primary POTS (postural orthostatic tachycardia syndrome) Unspecified tachycardia Asthma during 20 weeks gestation of [facility] Diagnosis Thumb pain, right- Primary [...] syndrome) Unspecified tachycardia documented in this encounter [facility]* Diagnosis Thumb pain, right- [...] without complication (CMS/HCC) documented in this encounter [facility]* Diagnosis POTS (postural orthostatic tachycardia syndrome)- Primary Tachycardia, unspecified 23 weeks gestation of state, incidental [facility] Diagnosis Thumb pain, right- [...] heart murmur and had been transferred to [facility] * There is no change [...] patient that she saw Dr. Muñiz at [facility] for second opinion regarding neurally mediated syncope and near syncope. He agreed with evaluation and management and patient opted to follow-up here at [facility] in [place]. * Zio patch August 2022. All rhythms [...] needed, treatment options, risks, benefits, and imponderables. [place] [employer] lifestyle changes and behavioral modification discussed. All questions answered in detail. Counseling over 50% visit regarding above. Patient appreciative of care. * Grammar * Please excuse grammatical or dictation errors as software dictation application being used. [facility] [facility] DO Work Phone: History of Present illness Narrative* The patient states she has been generally stable since the last visit. * Symptoms: denies chest pain at rest, denies exertional chest pain, denies dyspnea, stable fatigue, denies exercise intolerance, stable palpitations, denies edema, denies orthopnea, stable dizziness and stable orthostatic dizziness. * Disease Monitoring: [facility] [address] DO Work Phone: Hospital Discharge instructions No data available for this section [facility]ructionsNot on filedocumented in this encounter [facility]Right [facility] SystemInstructionsNot on filedocumented in this encounter [facility] Health SystemInstructionsNot on filedocumented in this encounter [facility] SystemInstructionsNot on filedocumented in this encounter [facility] SystemInstructionsNot on filedocumented in this encounter [facility] SystemProgress note No data available for this section [facility] for referral (narrative)* Diagnostic Procedure Only (Routine) - Pending Review Specialty Diagnoses / Procedures Referred By Rachel t Referred To Contact XR IMAGING Diagnoses Right knee pain, unspecified chronicity Procedures XR KNEE GENERAL 4V AP BOTH/PA BOTH/LAT/MERC RIGHT RADIOLOGIC EXAM KNEE COMPLETE 4/MORE VIEWS Jose Armando Grey, [address] [place] [address] [place] [address] Referral ID Status Reason Start Date Expiration Date Visits Requested Visits Authorized [id number] Pending Review Auto-Generat ed Referral 3 08/04/[address] [facility] for visit Narrativerash knee referral from Cj Jaimes, She gets a funny rash on her knee and toesSaint Paul [employer] Other Summary Purpose Family History Unknown Family [...] or prosecute any alcohol or drug abuse patient.[facility] System[facility] the event this information is protected by the Federal Confidentiality of Alcohol and Drug Abuse Patient Records regulations: The Federal rules restrict any use of the information to criminally investigate or prosecute any alcohol or drug abuse patient.[facility] SystemIn the event this information is protected by the Federal Confidentiality of Alcohol and Drug Abuse Patient Records regulations: The Federal rules restrict any use of the information to criminally investigate or prosecute any alcohol or drug abuse patient.[facility] SystemIn the event this information is protected by the Federal Confidentiality of Alcohol and Drug Abuse Patient Records regulations: The Federal rules restrict any use of the information to criminally investigate or prosecute any alcohol or drug abuse patient.[facility] SystemIn the event this information is protected by the Federal Confidentiality of Alcohol and Drug Abuse Patient Records regulations: The Federal rules restrict any use of the information to criminally investigate or prosecute any alcohol or drug abuse patient.[facility] SystemIn the event this information is protected by the Federal Confidentiality of Alcohol and Drug Abuse Patient Records regulations: The Federal rules restrict any use of the information to criminally investigate or prosecute any alcohol or drug abuse patient.[facility] SystemIn the event this information is protected by the Federal Confidentiality of Alcohol and Drug Abuse Patient Records regulations: The Federal rules restrict any use of the information to criminally investigate or prosecute any alcohol or drug abuse patient.[facility] SystemIn the event this information is protected by the Federal Confidentiality of Alcohol and Drug Abuse Patient Records regulations: The Federal rules restrict any use of the information to criminally investigate or prosecute any alcohol or drug abuse patient.[facility] SystemIn the event this information is protected by the Federal Confidentiality of Alcohol and Drug Abuse Patient Records regulations: The Federal rules restrict any use of the information to criminally investigate or prosecute any alcohol or drug abuse patient.[facility] SystemIn the event this information is protected by the Federal Confidentiality of Alcohol and Drug Abuse Patient Records regulations: The Federal rules restrict any use of the information to criminally investigate or prosecute any alcohol or drug abuse patient.[facility] SystemIn the event this information is protected by the Federal Confidentiality of Alcohol and Drug Abuse Patient Records regulations: The Federal rules restrict any use of the information to criminally investigate or prosecute any alcohol or drug abuse patient.[facility] SystemIn the event this information is protected by the Federal Confidentiality of Alcohol and Drug Abuse Patient Records regulations: The Federal rules restrict any use of the information to criminally investigate or prosecute any alcohol or drug abuse patient.[facility] SystemIn the event this information is protected by the Federal Confidentiality of Alcohol and Drug Abuse Patient Records regulations: The Federal rules restrict any use of the information to criminally investigate or prosecute any alcohol or drug abuse patient.[facility] Reason for Visit (unrecogniz ed section and [...] section and content) DATE CREATED AUTHOR 02/03/2022 [facility] DATE CREATED AUTHOR AUTHOR'S ORGANIZ ATION 06/24/2022 [facility] [facility] DATE CREATED AUTHOR AUTHOR'S ORGANIZ ATION 09/15/2022 [employer] DATE CREATED AUTHOR AUTHOR'S ORGANIZ ATION 03/16/2023 [facility] DATE CREATED AUTHOR AUTHOR'S ORGANIZ ATION 06/15/2023 [facility] DATE CREATED AUTHOR AUTHOR'S ORGANIZ ATION 07/11/2023 [facility] DATE CREATED AUTHOR AUTHOR'S ORGANIZ ATION 03/15/2024 [facility] DATE CREATED AUTHOR AUTHOR'S ORGANIZ ATION 04/15/2024 [facility] DATE CREATED AUTHOR AUTHOR'S ORGANIZ ATION 07/11/2024 [facility] DATE CREATED AUTHOR AUTHOR'S ORGANIZ ATION 07/26/2024 [facility] DATE CREATED AUTHOR AUTHOR'S ORGANIZ ATION 09/05/2024 [facility] DATE CREATED AUTHOR AUTHOR'S ORGANIZ ATION 10/18/2024 [facility] DATE CREATED AUTHOR AUTHOR'S ORGANIZ ATION 11/06/2024 [facility] DATE CREATED AUTHOR AUTHOR'S ORGANIZ ATION 11/11/2024 [facility] d[facility] Specialists EPIC Care Teams (unrecognized sec tion and content) Team Status: Inactive Member Role Status Dates Ibis Renteria NP-C Primary Care Provider Activ e Guerita Stuart , SOFTWARE DESIGNER-C Attending Provider Active Team Status: Inactive Member Role Status Dates Ibis Renteria , SOFTWARE DESIGNER-C Primary Care Provider Activ e Melodie Alcaraz MD Attending Provider Active Team Status: Inactive Member Role Status Dates Ibis Renteria , SOFTWARE DESIGNER-C Primary Care Provider Activ e Melodie Alcaraz MD Attending Provider Active Álvaro Osborn MD Referring Provider Active Team Status: Active Member Role Status Dates Ibiseren Renteria , SOFTWARE DESIGNER-C Primary Care Provider Activ e Team Status: Inactive Member Role Status Dates Ibiseren Renteria , SOFTWARE DESIGNER-C Primary Care Provider Activ e Dyllan Pearce APRN Emergency Provider Active Team Status: Inactive Member Role Status Dates Ibisniharika Renteria , SOFTWARE DESIGNER-C Primary Care Provider Activ e Christina Perez APRN Attending Provider Active Team Status: Inactive Member Role Status Dates Ibisniharika Renteria , SOFTWARE DESIGNER-C Primary Care Provider Activ e Carlitos Nguyen Jr, DO Attending Provider Active Field Ring Assembler Relationship Specialty Start Date End Date Ibis Renteria CNP [address] [place] [address] PCP - General Nurse Practitioner 07/09/23 Field Ring Assembler Relationship Specialty Start Date End Date Ibis Renteria CNP [address] [place] [id number] PCP - General Nurse Practitioner 07/09/23 Team Status: Inactive Member Role Status Dates Ibisniharika Renteria , SOFTWARE DESIGNER-C Primary Care Provider Activ e Haris Martino DO Emergency Provider Active Team Status: Inactive Member Role Status Dates Ibisniharika Renteria , SOFTWARE DESIGNER-C Primary Care Provider Activ e Nam Barnes DO [facility] Attending Provider Active Field Ring Assembler Relationship Specialty Start Date End Date Jb Mandujano MD [address] [facility] 110 [place] [address] PCP - General Family Medicine 05/20/24 Osei Malik DO [address] [place] [address] Referring Physician Obstetrics and Gynecology 06/05/24 Flori Gil PA [address] [place] [address] Physician Product Design Specialist Obstetrics and Gynecology 06/05/24 Field Ring Assembler Relationship Specialty Start Date End Date Jb Mandujano MD [address] [facility] 110 [place] [address] PCP - General Family Medicine 05/20/24 Osei Malik DO [facility] [place] [address] Referring Physician Obstetrics and Gynecology 06/05/24 Flori Gil [place] [facility] [place] [address] Physician Product Design Specialist Obstetrics and Gynecology 06/05/24 Field Ring Assembler Relationship Specialty Start Date End Date Jb Mandujano MD [address] [address] [place] [address] PCP - General Family Medicine 05/20/24 Osei Malik DO [facility] [place] [address] Referring Physician Obstetrics and Gynecology 06/05/24 Flori Gil PA [address] [place] [address] Physician Product Design Specialist Obstetrics and Gynecology 06/05/24 Field Ring Assembler Relationship Specialty Start Date End Date Jb Mandujano MD [address] [facility] 110 [place] [address] PCP - General Family Medicine 05/20/24 Osei Malik, DO [address] [place] [address] Referring Physician Obstetrics and Gynecology 06/05/24 Flori Gil PA [address] [place] [address] Physician Product Design Specialist Obstetrics and Gynecology 06/05/24 Field Ring Assembler Relationship Specialty Start Date End Date Jb Mandujano MD [address] [place] [address] [place], [place] [id number] PCP - General Family Medicine 05/20/24 Osei Malik, DO [address] [place], [id number] Referring Physician Obstetrics and Gynecology 06/05/24 Flori Gil PA [address] [place] [address] Physician Product Design Specialist Obstetrics and Gynecology 06/05/24 Field Ring Assembler Relationship Specialty Start Date End Date Ander Boateng MD [address] [place] [address] PCP - General 11/30/17 Field Ring Assembler Relationship Specialty Start Date End Date Jb Mandujano MD [address] [place] [address] [place] [address] PCP - General Family Medicine 05/20/24 Osei Malik, DO [address] [place] [address] Referring Physician Obstetrics and Gynecology 06/05/24 Flori Gil PA [facility] [place] [address] Physician Product Design Specialist Obstetrics and Gynecology 06/05/24 Field Ring Assembler Relationship Specialty Start Date End Date Jb Mandujano MD [address] [address] PCP - General Family Medicine 05/20/24 Osei Malik, DO [address] [place] [address] Referring Physician Obstetrics and Gynecology 06/05/24 Flori Gil PA [facility] [place] [address] Physician Product Design Specialist Obstetrics and Gynecology 06/05/24 Field Ring Assembler Relationship Specialty Start Date End Date Ander Boateng MD [address] [place] [id number] PCP - General 11/30/17 Field Ring Assembler Relationship Specialty Start Date End Date Jb Mandujano MD [address] [address] PCP - General Family Medicine 05/20/24 Osei Malik, DO [facility] [place] [address] Referring Physician Obstetrics and Gynecology 06/05/24 Flori Gil PA [facility] [place] [address] Physician Product Design Specialist Obstetrics and Gynecology 06/05/24 Field Ring Assembler Relationship Specialty Start Date End Date Jb Mandujano MD [address] [facility] [address] [place] [address] PCP - General Family Medicine 05/20/24 Osei Malik DO [address] [place] [address] Referring Physician Obstetrics and Gynecology 06/05/24 Flori Gil PA [address] [place], [place] [address] [address] Physician Product Design Specialist Obstetrics and Gynecology 06/05/24 Field Ring Assembler Relationship Specialty Start Date End Date Ander Boateng MD [address] [place] [address] PCP - General 11/30/17 Field Ring Assembler Relationship Specialty Start Date End Date Jb Mandujano MD [address] [facility] [address] [place] [address] PCP - General Family Medicine 05/20/24 Osei Malik DO [address] [place] [address] [place] [address] Referring Physician Obstetrics and Gynecology 06/05/24 Flori Gil PA [address] [place], [place] [address] [address] Physician Product Design Specialist Obstetrics and Gynecology 06/05/24 Field Ring Assembler Relationship Specialty Start Date End Date Jb Mandujano MD [address] [facility] 110 [place] [address] PCP - General Family Medicine 05/20/24 Field Ring Assembler Relationship Specialty Start Date End Date Jb Mandujano MD [address] [facility] 110 [place] [address] PCP - General Family Medicine 05/20/24 Field Ring Assembler Relationship Specialty Start Date End Date Jb Mandujano MD [address] [facility] [address] [place] [address] PCP - General Family Medicine 05/20/24 Field Ring Assembler Relationship Specialty Start Date End Date Jb Mandujano MD [address] [facility] 110 [place] [address] PCP - General Family Medicine 05/20/24 Field Ring Assembler Relationship Specialty Start Date End Date Jb Mandujano MD [address] [facility] 110 [place] [address] PCP - General Family Medicine 05/20/24 Osei Malik DO [address] [place] [address] Referring Physician Obstetrics and Gynecology 06/05/24 Flori Gil PA [facility] [place] [address] Physician Product Design Specialist Obstetrics and Gynecology 06/05/24 Field Ring Assembler Relationship Specialty Start Date End Date Jb Mandujano MD [address] [facility] [address] [place] [address] PCP - General Family Medicine 05/20/24 Osei Malik DO [address] [place] [address] Referring Physician Obstetrics and Gynecology 06/05/24 Flori Gil PA [address] [place] [address] Physician Product Design Specialist Obstetrics and Gynecology 06/05/24 Field Ring Assembler Relationship Specialty Start Date End Date Jb Mandujano MD 112 [facility] [address] [place] [address] PCP - General Family Medicine 05/20/24 Osei Malik DO [facility] [place] [address] Referring Physician Obstetrics and Gynecology 06/05/24 Flori Gil PA [facility] [place] [address] Physician Product Design Specialist Obstetrics and Gynecology 06/05/24 Field Ring Assembler Relationship Specialty Start Date End Date Jb Mandujano MD [address] [place] [address] 110 [place] [address] PCP - General Family Medicine 05/20/24 Osei Malik DO [facility] [place] [address] Referring Physician Obstetrics and Gynecology 06/05/24 Flori Gil PA [facility] [place] [address] Physician Product Design Specialist Obstetrics and Gynecology 06/05/24 Field Ring Assembler Relationship Specialty Start Date End Date Ander Boateng MD [address] [place] [address] PCP - General 11/30/17 Team Status: Inactive Member Role Status Dates Osei Malik DO Attending Provider Active Start : September 25, 2024 End: September 25, 2024 Field Ring Assembler Relationship Specialty Start Date End Date Jb Mandujano MD [address] [facility] [address] [place] [address] PCP - General Family Medicine 05/20/24 Osei Malik DO [address] [place] [address] Referring Physician Obstetrics and Gynecology 06/05/24 Flori Gil PA [facility] [place] [address] Physician Product Design Specialist Obstetrics and Gynecology 06/05/24 Field Ring Assembler Relationship Specialty Start Date End Date Jb Mandujano MD [address] [address] [place] [address] PCP - General Family Medicine 05/20/24 Osei Malik DO [facility] [place] [address] Referring Physician Obstetrics and Gynecology 06/05/24 Flori Gil PA [facility] [place] [address] Physician Product Design Specialist Obstetrics and Gynecology 06/05/24 Field Ring Assembler Relationship Specialty Start Date End Date Ander Boateng MD [address] [place] [address] PCP - General 11/30/17 Field Ring Assembler Relationship Specialty Start Date End Date Jb Mandujano MD [address] [address] [place] [address] PCP - General Family Medicine 05/20/24 Osei Malik DO [address] [place] [address] Referring Physician Obstetrics and Gynecology 06/05/24 Flori Gil PA [facility] [place] [address] Physician Product Design Specialist Obstetrics and Gynecology 06/05/24 Field Ring Assembler Relationship Specialty Start Date End Date Jb Mandujano MD [address] [facility] 110 [place] [address] PCP - General Family Medicine 05/20/24 Osei Malik DO [facility] [place] [address] Referring Physician Obstetrics and Gynecology 06/05/24 Flori Gil PA [facility] [place] [address] Physician Product Design Specialist Obstetrics and Gynecology 06/05/24 Field Ring Assembler Relationship Specialty Start Date End Date Jb Mandujano MD [address] [facility] 110 [place] [address] PCP - General Family Medicine 05/20/24 Osei Malik DO [facility] [place] [address] Referring Physician Obstetrics and Gynecology 06/05/24 Flori Gil PA [facility] [place] [address] Physician Product Design Specialist Obstetrics and Gynecology 06/05/24 Field Ring Assembler Relationship Specialty Start Date End Date Ander Boateng MD [address] [place] [address] PCP - General 11/30/17 Goals (unrecognized [...] BE BASED ON THE PRIMARY CLINICAL RECORDS. [facility] [employer] [facility]. provides no warranty or guarantee of the accuracy or completeness of information in this document.
--- NOTE | 2024-11-12 16:57 | US_ITS ---
[address] [address] Patient Name: CJ MAI MRN: [id number] date: 2000 Sex: F Assigned Patient Location: [facility] Current Patient Location: LAB Accession/Order Number: [id number] Exam Date: 11/13/2024 12:22 Report Date: 11/13/2024 12:44 At the request of: SHELBI WILLIAM DO Procedure: US OB BPP w non-stress BPP Reason for exam: Dichorionic diamniotic twin . COMPARISON: BDP 11/05/2024. TECHNIQUE: Transabdominal imaging of the gravid uterus was obtained. FINDINGS: Purse Framer reports a BPP of 8 out of 8 for both fetus A and fetus B. heart rate for fetus a is 148 bpm. heart rate for fetus B is 144 bpm. US/US OB BPP w non-stress Impression: BPP 8 out of 8 for both fetus a and fetus B. Correlation with NST is recommended. Impression dictated by: Parveen Wells Jr., D.O.11/13/2024 12:44 PM Dictation Location: [email or web address] Electronically authenticated by: [id number] Date: 11/13/2024 12:44
[2024-11-12 17:56] VITALS: BP 116/75; PULSE 98
== END 2024-11-12 18:52 | disposition home or self-care (01) ==
LOC: US 01:18 → FBC 16:55
PROVIDERS: PCP Family Medicine; Visit Provider Obstetrics & Gynecology
DX: O30.042 Twin pregnancy, dichorionic/diamniotic, second trimester (principal)
CPT/HCPCS: 76818

== ENCOUNTER 2024-11-15 00:16 | Outpatient (OUT) | payer OTHER, MEDICAID, SELFPAY ==
--- OUTSIDE RECORDS SUMMARY | 2024-11-15 00:20 | XMS_ITS | CCD ---
Author Organization [facility] Care Team Providers Care Radius Grinder Name Role Phone Unavailable Primary Care Provider Unavailsoniya e Christina Pearce Unavailable Ok Mckeon Unavailable Ibis Renteria Unavailable [phone] Unavailable Unavailable CARLOS Renteria Primary Care Provider MD Melodie Alcaraz Attending Provider [phone] MD Álvaro Osborn Referring Provider [phone] CARLOS Davidson Attending Provider JOHNNY Pearce Emergency Provider [phone] Link, Dr. Annalee Torres Attending Unavailab celine Alcaraz, Dr. Sewell Referring Unavailable Myra, Ms. Ibis Winter Primary Care Unavail able Link, Dr. Annalee Torres Admitting Unavailab le Unavailable Primary Care Provider Unavailsoniya e Unavailable Primary Care Provider UnavailCARLOS Salas Primary Care Provider JOHNNY Perez Attending Provider [phone] CHAN MUÑIZ Attending UnavailIBIS Salas Referring Unavailable MYRA, IBIS Primary Care Unavailable IBIS RENTERIA Primary Care Unavailable SPRING UMAÑA Referring Unavailable CHAN MUÑIZ Attending UnavailCARLOS Salas Primary Care Provider DO Carlitos Nguyen Jr Attending Provider [phone] Dr. 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 Ibis Winter Primary Care Provider DO Haris Martino Emergency Provider DO Nam Barnes Attending Provider [phone] JB MANDUJANO Primary Care Physician Rinkes, Celeste Admitting Unavailable Rinkes, Celeste Attending Unavailable Jocelin FELIX Attending Unavailable Mae, OIL AND G[employer] RECRUITER Krista L Attending Unavailable Mae, OIL AND GAS RECRUITER Krista L Attending Unavailable Unavailable Primary Care Provider Unavailabl e Rinkes, Celeste Attending Unavailable Rinkes, Celeste Admitting Unavailable Rinkes, Celeste Attending Unavailable Rinkes, Celeste Admitting Unavailable Jb Mandujano MD Primary Care Provider Osei Malik DO Unavailable Flori Sam Unavailable On license of [facility], Nam Brewer Attending [facility]available [facility] Brew[facility] Admitting Unavailable Ibis Renteria Primary Care Unavailable Rinradha, Celeste Attending Unavailable Rinkes, Celeste Admitting Unavailable SANTIAGO, AURORA Attending Unavailable SANTIAGO, AURORA Referring Unavailable SANTIAGO, AURORA Referring Unavailable SANTIAGO, AUROAR Referring Unavailable SANTIAGO, AURORA Referring Unavailable NOBLE, JYOTI Attending Unavailable NOBLE, JYOTI Attending Unavailable JOIE SEAMAN Attending Unavailable NOBLE, JYOTI Attending Unavailable [facility] Primary Care Provider [phone] Helena DO, Osei Attending Provider Helena, Osei Attending Unavailable Helena, Osei Admitting Unavailable HELENA, OSEI Attending Unavailable HELENA, OSEI Attending Unavailable HELENA, OSEI Attending Unavailable RINRADHA, CELESTE E Attending Unavailable SHIRLEY, CELESTE E Attending Unavailable JB MANDUJANO Attending Unavailable JB MANDUJANO Attending Unavailable HEMCAMILLA MCKEON Attending Unavailable HELENA, OSEI Attending Unavailable LOUISEFLORI Attending Unavailable LOUISE, FLORI Attending Unavailable HEMMERCAMILLA M Attending Unavailable HELENA, OSEI Attending Unavailable HELENA, OSEI Attending Unavailable HELENA, OSEI Attending Unavailable HELENA, OSEI R Referring Unavailable BUMAGINA, ANDER Primary Care Unavailable HAMMAD HATCH Attending Unavailable HELENA, OSEI R Referring Unavailable [...] / oxyCODONE; Translations: [acetaminophen-o xycodone] Drug Allergy [facility] [place] Comment on above: no narcotics, GI ups et Chlorhexidine (1 source) Chlorhexidine; Translations: [chlorhexidine topical] Drug Allergy [facility] Corticosteroids (1 source) predniSONE; Translations: [prednisone] Drug Allergy [facility] (15 sources) Morphinan opioid; Translations: [OPIOIDS - MORPHINE ANALOGUES] Propensity to adverse reactions to drug 01-26-20 Other: See Comments [facility] (20 sources) predniSONE; Translations: [predniSONE] Drug Allergy 01-26-20 Other: See Comments, Dizziness [facility] (20 sources) prednisoLONE; Translations: [prednisolone] Drug Allergy 01-11-20 22 GI Disturbance [facility] [employer] Other (15 sources) Fludrocortisone; Translations: [Florinef TABS] Drug Allergy [facility] [address] DO Work Phone: (20 sources) Midodrine; Translations: [midodrine] Drug Allergy 08-13-20 23 GI bleeding [facility] (3 sources) Acetaminophen / oxyCODONE; Translations: [Percocet] Drug Allergy [facility] (4 sources) Chlorhexidine; Translations: [chlorhexidine topical] Drug Allergy Itching [facility] (7 sources) Acetaminophen / oxyCODONE; Translations: [acetaminophen-o xycodone] Drug Allergy 07-07-20 24 GI Disturbance [facility] Comment on above: no narcotics, GI ups et (20 sources) Acetaminophen / oxyCODONE; Translations: [OXYCODONE-ACETA MINOPHEN] Drug Allergy 02-26-20 24 [facility] (20 sources) Chlorhexidine; Translations: [CHLORHEXIDINE] Drug Allergy 02-21-20 23 Itching [facility] Work Phone: (20 sources) Fludrocortisone; Translations: [FLUDROCORTISONE ] Drug Allergy 07-26-20 22 Nausea [facility] (20 sources) Prednisone Allergy to substance 02-18-20 23 Dizziness [facility] (1 source) predniSONE Drug Allergy 06-08-20 23 [facility] Repository Medications Current Medications Medication Drug Class(es) Dates Sig (Normalized) Sig (Original) [id number] actuat albuterol 0.09 mg/actuat metered dose [...] this medication. 14 tablet 08/07/2024 08/14/2024 Active Seymour (No Known Home Meds) (1 source) Start: Seymour (No Known Home Meds) Active June 08, [...] Start: 08-01-2022 take 1 capsule by mo [facility] three times daily Droxidopa 100 MG Oral [...] Refills: 6 Ordered: 13-Jun-2023 [place] APRN-Tabatha GODOSON Start : 13-Jun-2023 Active methotrexate 2.5 mg [...] hypotension; Translations: [Orthostatic hypotension] 11-12-2023 Episodic Other complications of (2 sources) Asthma; Translations: [Diseases of the respiratory system complicating , unspecified trimester] 08-15-2024 Episodic Other connective tissue disease (2 sources) [...] Onset: 5 10-02-2024 Episodic Residual codes; unclassified (2 sources) Gestation period, 31 weeks; Translations: [31 weeks gestation of ] 10-29-2024 Episodic Residual codes; unclassified (3 sources) Gestation period, 20 weeks; Translations: [20 weeks gestation of ] 08-15-2024 Episodic Residual codes; unclassified (2 sources) Gestation period, 33 weeks; Translations: [33 weeks gestation of ] 11-10-2024 Episodic Superficial injury; contusion (7 sources) Contusion of elbow; Translations: [Contusion of unspecified elbow, initial encounter] 09-20-2019 Episodic Unclassified (1 source) [place] Onset: Past or Other Problems Problem Classification Problem [...] unspecified site] Onset: 02-26-2024 02-26-2024 Episodic Other circulatory disease (2 sources) Postural orthostatic tachycardia syndrome ; Translations: [Postural orthostatic tachycardia syndrome (POTS)] Onset: 08-13-2024 08-15-2024 Episodic Other complications of (1 source) Diseases of the respiratory system complicating , unspecified trimester; Translations: [Diseases of the respiratory system complicating , unspecified trimester] Onset: 08-13-2024 Episodic Other connective tissue disease (20 sources) [...] [Transient alteration of awareness] Onset: 11-12-2023 Episodic Residual codes; unclassified (1 source) 20 weeks gestation of ; Translations: [20 weeks gestation of ] Onset: 08-13-2024 Episodic Spondylosis; intervertebral disc disorders; other back [...] Test Name Value Interpretation Reference Range Facility US OB BPP W NON-STRESS on 11-13-[address] [address] Ultrasound Report Signed Patient: PRENATT,MADYSON M MR#: [id number] : 2000 Acct:[id number] Age/Sex: 23 / F ADM Date: 11/12/24 Loc: US Attending Dr: Osei Malik D.O. Ordering Physician: Osei Malik D.O. Date of Service: 11/12/24 Procedure(s): US OB BPP w non-stress Accession Number(s): [id number] cc: JB MANDUJANO ; Osei Malik D.O. [place] [id number] Patient Name: MADYSON MAI MRN: [facility]:[id number] date: 2000 Sex: F Assigned Patient Location: [facility] Current Patient Location: LAB Accession/Order Number: [id number] Exam Date: 11/13/2024 12:22 Report Date: 11/13/2024 12:44 At the request of: OSEI MALIK DO Procedure: US OB BPP w non-stress BPP Reason for exam: Dichorionic diamniotic twin . COMPARISON: BDP 11/05/2024. TECHNIQUE: Transabdominal imaging of the gravid uterus was obtained. FINDINGS: [employer] Washer reports a BPP of 8 out of 8 for both fetus A and fetus B. heart rate for fetus a is 148 bpm. heart rate for fetus B is 144 bpm. US/US OB BPP w non-stress Impression: BPP 8 out of 8 for both fetus a and fetus B. Correlation with NST is recommended. Impression dictated by: Parveen Wells Jr., D.O.11/13/2024 12:44 PM Dictation Location: [place] [address] Electronically authenticated by: [id number] Y Date: 11/13/2024 12:44 Dictated By: Parveen Wells M.D. Signed By: 11/13/24 1246 DD/ 1244 TD/TT: Manager Story: [facility] Radiology, Radiologi MD billy - 11/13/[address] [address] Ultrasound Report Signed Patient: MADYSON MAI MR#: [id number] : 2000 Acct:[id number] Age/Sex: 23 / F ADM Date: 11/12/24 Loc: US Attending Dr: Osei Malik D.O. Ordering Physician: Osei Malik D.O. Date of Service: 11/12/24 Procedure(s): US OB BPP w non-stress Accession Number(s): [id number] cc: JB MANDUJANO ; Osei Malik D.O. The [place] [address] Patient Name: MADYSON MAI MRN: [facility]:[id number] date: 2000 Sex: F Assigned Patient Location: [facility] Current Patient Location: LAB Accession/Order Number: [id number] Exam Date: 11/13/2024 12:22 Report Date: 11/13/2024 12:44 At the request of: OSEI MALIK DO Procedure: US OB BPP w non-stress BPP Reason for exam: Dichorionic diamniotic twin . COMPARISON: BDP 11/05/2024. TECHNIQUE: Transabdominal imaging of the gravid uterus was obtained. FINDINGS: [employer] Washer reports a BPP of 8 out of 8 for both fetus A and fetus B. heart rate for fetus a is 148 bpm. heart rate for fetus B is 144 bpm. US/US OB BPP w non-stress Impression: BPP 8 out of 8 for both fetus a and fetus B. Correlation with NST is recommended. Impression dictated by: Parveen Wells Jr., D.O.11/13/2024 12:44 PM Dictation Location: [place] [address] Electronically authenticated by: [id number] Y Date: 11/13/2024 12:44 Dictated By: Parveen Wells M.D. Signed By: 11/13/24 1246 DD/ 1244 TD/TT: Manager Story: [facility] Radiology Study observation (narrative) [facility] US OB BPP W NON-STRESS Ordered By: Radiologist Radiology on 11-13-2024 [facility] Work Phone: Urinalysis macro (dipstick) panel (U)on 11-10-2024 Bilirubin, UA Negative Negative - 4(70) +++ mg/dL [facility] Blood, UA Negative Negative - 50 Vasu/mcL [facility] Clarity, UA Clear [facility] Color, UA Yellow [facility] Glucose, UA Positive Negative - 1999(110) ++++ mg/dL [facility] Comment on above: 100mg/dL Interpretation and review of laboratory results Abnormal [facility] Ketones, UA Negative Negative - 160(16) ++++ mg/dL [facility] Leukocytes, UA Positive Negative - 500+++ Conrad/mcL [facility] Comment on above: small Nitrite, UA Negative Negative - Positive [facility] pH, UA 7 5 - 9 [facility] Protein, UA Trace Negative - 1999(20) ++++ mg/dL [facility] Spec Grav, UA 1.02 1 - 1.03 [facility] Urobilinogen, UA 0.2 0.2 - 12 mg/dL [facility] ALL CBC WITH AUTO DIFFon BASOPHILS ABSOLUTE AUTO 0 [facility] Basophils/100 WBC (Bld) 0.3 % 0.2 - 2.0 % [facility] Eosinophils/100 WBC (Bld) 0.6 % Low 0.9 - 7.0 % [facility] Erythrocyte distribution width (RBC) [Ratio] 13.2 % 11.0 - 15.0 % [facility] Hematocrit (Bld) [Volume fraction] 38.7 % 36.0 - 48.0 % [facility] Hemoglobin (Bld) [Mass/Vol] 12.9 g/dL 12.0 - 16.0 g/dL [facility] IMMATURE GRANULOCYTES ABS AUTO 0.05 High [facility] Immature granulocytes/100 WBC (Bld) 0.5 % 0.0 - 0.5 % [facility] Interpretation and review of laboratory results Abnormal [facility] LYMPHOCYTES ABSOLUTE AUTO 1.4 [facility] Lymphocytes/100 WBC (Bld) 13.2 % Low 20.5 - 60.0 % [facility] MCH (RBC) [Entitic mass] 28.4 pg 26.7 - 34.0 pg [facility] MCHC (RBC) [Mass/Vol] 33.3 g/dL 29.9 - 35.2 g/dL [facility] MCV (RBC) [Entitic vol] 85.2 fL 81.0 - 99.0 fL [facility] MONOCYTES ABSOLUTE AUTO 0.6 [facility] Monocytes/100 WBC (Bld) 5.7 % 1.7 - 12.0 % [facility] NEUTROPHILS ABSOLUTE AUTO 8.4 High [facility] Neutrophils/100 WBC (Bld) 79.7 % High 43.0 - 75.0 % [facility] Platelet mean volume (Bld) [Entitic vol] 10.3 fL 9.5 - 13.5 fL [facility] TBH EO # 0.1 [facility]H PLT 151 [facility] TB RBC 4.54 [facility] WBC 10.5 [facility] No Panel InformationOrdered By: Radiologist Radiology on 11-06-2024 [facility] Work Phone: No Panel Informationon 11-06 Radiology Study observation (narrative) [facility] US OB BPP W NON-STRESS on 11-06-2024 [place] [address] Ultrasound Report Signed Patient: MADYSON MAI MR#: [id number] : 2000 Acct:[id number] Age/Sex: 23 / F ADM Date: 11/05/24 Loc: US Attending Dr: Osei Malik D.O. Ordering Physician: Osei Malik D.O. Date of Service: 11/05/24 Procedure(s): US OB BPP w non-stress Accession Number(s): [id number] cc: JB MANDUJANO ; Osei Malik D.O. The [address] [address] Patient Name: MADYSON MAI MRN: [id number]:[id number] date: 2000 Sex: F Assigned Patient Location: US Current Patient Location: US Accession/Order Number: [id number] Exam Date: 11/05/2024 17:46 Report Date: 11/06/2024 [...] Signed By: 11/06/24 0748 DD/ 0745 TD/TT: Manager Story: [facility] Radiology, Radiologi MD billy - 11/06/2024 [place] [address] Ultrasound Report Signed Patient: MADYSON MAI MR#: [id number] : 2000 Acct:[id number] Age/Sex: 23 / F ADM Date: 11/05/24 Loc: US Attending Dr: Osei Malik D.O. Ordering Physician: Osei Malik D.O. Date of Service: 11/05/24 Procedure(s): US OB BPP w non-stress Accession Number(s): [id number] cc: JB MANDUJANO ; Osei Malik D.O. The [place] [id number] Patient Name: MADYSON MAI MRN: [facility]:[id number] date: 2000 Sex: F Assigned Patient Location: US Current Patient Location: US Accession/Order Number: [id number] Exam Date: 11/05/2024 17:46 Report Date: 11/06/2024 [...] Small M.D. Signed By: 11/06/2448 DD/ TD/TT: Manager Story: [place] [address] Ultrasound Report Signed Patient: MADYSON MAI MR#: [id number] : 2000 Acct:[id number] Age/Sex: 23 / F ADM Date: 11/05/24 Loc: US Attending Dr: Osei Malik D.O. Ordering Physician: Osei Malik D.O. Date of Service: 11/05/24 Procedure(s): US OB BPP w non-stress Accession Number(s): [id number] cc: JB MANDUJANO ; Osei Malik D.O. [place] [id number] Patient Name: MADYSON MAI MRN: [facility]:[id number] date: 2000 Sex: F Assigned Patient Location: US Current Patient Location: US Accession/Order Number: [id number] Exam Date: 11/05/2024 17:46 Report Date: 11/06/2024 [...] Signed By: 11/06/24 0748 DD/ 0745 TD/TT: Manager Story: [facility] Radiology Radiologyelitza cervantes MD - 11/06/2024 [place] [address] Ultrasound Report Signed Patient: MADYSON MAI MR#: [id number] : 2000 Acct:[id number] Age/Sex: 23 / F ADM Date: 11/05/24 Loc: US Attending Dr: Osei Malik D.O. Ordering Physician: Osei Malik D.O. Date of Service: 11/05/24 Procedure(s): US OB BPP w non-stress Accession Number(s): [id number] cc: JB MANDUJANO ; Osei Malik D.O. [place] [id number] Patient Name: MADYSON MAI MRN: [id number] date: 2000 Sex: F Assigned Patient Location: US Current Patient Location: US Accession/Order Number: [id number] Exam Date: 11/05/2024 17:46 Report Date: 11/06/2024 [...] M.D. Signed By: 11/06/24 0748 DD/ TD/TT: Manager Story: [facility] No Panel InformationOrdered By: Radiologist Radiology on 10-30-2024 [facility] Work Phone: No Panel Informationon 10-30 Radiology Study observation (narrative) [facility] US OB BPP W NON-STRESS on 10-30-2024 [place] [address] Ultrasound Report Signed Patient: MADYSON MAI MR#: [id number] : 2000 Acct:[id number] Age/Sex: 23 / F ADM Date: 10/29/24 Loc: US Attending Dr: Osei Malik D.O. Ordering Physician: Osei Malik D.O. Date of Service: 10/29/24 Procedure(s): US OB BPP w non-stress Accession Number(s): [id number] cc: JB MANDUJANO ; Osei Malik D.O. The [place] [address] Patient Name: MADYSON MAI MRN: [facility]:[id number] date: 2000 Sex: F Assigned Patient Location: [facility] Current Patient Location: Accession/Order Number: [id number] Exam Date: 10/29/2024 17:40 Report Date: 10/30/2024 [...] M.D. Signed By: 10/30/2433 DD/ 9 TD/TT: Manager Story: [facility] Radiology, Radiologi MD billy - 10/30/2024 [place] [address] Ultrasound Report Signed Patient: MADYSON MAI MR#: [id number] : 2000 Acct:[id number] Age/Sex: 23 / F ADM Date: 10/29/24 Loc: US Attending Dr: Osei Malik D.O. Ordering Physician: Osei Malik D.O. Date of Service: 10/29/24 Procedure(s): US OB BPP w non-stress Accession Number(s): [id number] cc: JB MANDUJANO ; Osei Malik D.O. [address] [address] Patient Name: MADYSON MAI MRN: [id number] date: 2000 Sex: F Assigned Patient Location: [facility] Current Patient Location: Accession/Order Number: [id number] Exam Date: 10/29/2024 17:40 Report Date: 10/30/2024 [...] TIM CONTRERAS Date: 10/30/2024 07:30 Dictated By: Tmi Contreras M.D. Signed By: 10/30/24 0733 DD/ 9 TD/TT: Manager Story: [place] [address] Ultrasound Report Signed Patient: MADYSON MAI MR#: [id number] : 2000 Acct:[id number] Age/Sex: 23 / F ADM Date: 10/29/24 Loc: US Attending Dr: Osei Malik D.O. Ordering Physician: Osei Malik D.O. Date of Service: 10/29/24 Procedure(s): US OB BPP w non-stress Accession Number(s): [id number] cc: JB MANDUJANO ; Osei Malik D.O. [place] [address] Patient Name: MADYSON MAI MRN: [id number] date: 2000 Sex: F Assigned Patient Location: [facility] Current Patient Location: Accession/Order Number: [id number] Exam Date: 10/29/2024 17:40 Report Date: 10/30/2024 [...] Signed By: 10/30/24 0733 DD/ 0730 TD/TT: Manager Story: [facility] Radiology, Radiologyelitza cervantes MD - 10/30/2024 The [place] [id number] Ultrasound Report Signed Patient: MADYSON MAI MR#: [id number] : 2000 Acct:[id number] Age/Sex: 23 / F ADM Date: 10/29/24 Loc: US Attending Dr: Osei Malik D.O. Ordering Physician: Osei Malik D.O. Date of Service: 10/29/24 Procedure(s): US OB BPP w non-stress Accession Number(s): [id number] cc: JB MANDUJANO ; Osei Malik D.O. The [place] [id number] Patient Name: MADYSON MAI MRN: [facility]:[id number] date: 2000 Sex: F Assigned Patient Location: [facility] Current Patient Location: Accession/Order Number: [id number] Exam Date: 10/29/2024 17:40 Report Date: 10/30/2024 [...] M.D. Signed By: 10/30/2433 DD/ 9 TD/TT: Manager Story: [facility] Urinalysis macro (dipstick) panel (U)on 10-29-2024 Bilirubin, UA Negative Negative - 4(70) +++ mg/dL [facility] Blood, UA Negative Negative - 50 Vasu/mcL [facility] Clarity, UA Clear [facility] Color, UA Yellow [facility] Glucose, UA Positive Negative - 2000(110) ++++ mg/dL [facility] Comment on above: 100 MG Interpretation and review of laboratory results Abnormal [facility] Ketones, UA Negative Negative - 160(16) ++++ mg/dL [facility] Leukocytes, UA Positive Negative - 500+++ Conrad/mcL [facility] Comment on above: SMALL Nitrite, UA Negative Negative - Positive [facility] pH, UA 7 5 - 9 [facility] Protein, UA Negative Negative - 2000(20) ++++ mg/dL [facility] Spec Grav, UA 1.01 1 - 1.03 [facility] Urobilinogen, UA 0.2 0.2 - 12 mg/dL [facility] CTA Chest vessels WO and W c ontrast Luiz 10-27-2024 [place] [address] CT Scan Report Signed Patient: MADYSON MAI MR#: [id number] : 2000 Acct:[id number] Age/Sex: 23 / F ADM Date: Loc: [facility] 251-[address]: Osei Malik D.O. Ordering Physician: Osei Malik D.O. Date of Service: 10/27/24 Procedure(s): CT angio chest Accession Number(s): [id number] cc: JB MANDUJANO [address] [address] Patient Name: MADYSON MAI MRN: [facility]:[id number] date: 2000 Sex: F Assigned Patient Location: [facility] Current Patient Location: [facility] Accession/Order Number: [id number] Exam Date: 10/27/2024 15:20 Report Date: 10/27/2024 [...] Signed By: 10/27/24 1556 DD/ 1554 TD/TT: Manager Story: [facility] Radiology, Radiologi MD billy - 10/27/2024 [place] [address] CT Scan Report Signed Patient: MADYSON MAI MR#: [id number] : 2000 Acct:[id number] Age/Sex: 23 / F ADM Date: Loc: [facility] 251-[address]: Osei Malik D.O. Ordering Physician: Osei Malik D.O. Date of Service: 10/27/24 Procedure(s): CT angio chest Accession Number(s): [id number] cc: JB MANDUJANO [place] [id number] Patient Name: MADYSON MAI MRN: [id number] date: 2000 Sex: F Assigned Patient Location: [facility] Current Patient Location: [facility] Accession/Order Number: [id number] Exam Date: 10/27/2024 15:20 Report Date: 10/27/2024 [...] Signed By: 10/27/24 1556 DD/ 1554 TD/TT: Manager Story: [facility] Radiology Study observation (narrative) [facility] CTA Chest vessels WO and W c ontrast IVOrdered By: Radiologist Radiology on 10-27-2024 [facility] Work Phone: ECG 12-LEADon 10-27-2024 [place] [address] Electrocardiograph Report Signed Patient: MADYSON MAI MR#: [id number] : 2000 Acct:[id number] Age/Sex: 23 / F ADM Date: Loc: [facility] [address]: Osei Malik D.O. Ordering Physician: Osei Malik D.O. Date of Service: 10/27/24 Procedure(s): ECG 12 lead Accession Number(s): [id number] cc: [facility] Test Date: 2024-10-27 Pat Name: MADYSON MAI Department: Room: [facility] Gender: Female Supervisory Cbp Officer: : 2000 Requested By: OSEI MALIK Order Number: [id number] Reading MD: SURYA MEJÍA Measurements Intervals Edgar Rate: 98 P: 36 WY: 153 QRS: 19 QRSD: 98 T: 28 QT: 353 QTc: 451 Interpretive Statements SINUS RHYTHM No previous ECG available for comparison Electronically Signed On 10-27-2024 20:49:34 EST by SURYA MEJÍA Dictated By: Surya Mejía D.O. Signed By: 10/27/242048 DD/ 1555 TD/TT: Manager Story: [facility] RadiologyIshaanogyelitza cervantes MD - 10/27/2024 The [place] [id number] Electrocardiograph Report Signed Patient: MADYSON MAI MR#: [id number] : 2000 Acct:[id number] Age/Sex: 23 / F ADM Date: Loc: [facility] [address]: Osei Malik D.O. Ordering Physician: Osei Malik D.O. Date of Service: 10/27/24 Procedure(s): ECG 12 lead Accession Number(s): [id number] cc: [facility] Test Date: 2024-10-27 Pat Name: MADYSON MAI Department: Room: [facility] Gender: Female Supervisory Cbp Officer: : 2000 Requested By: OSEI MALIK Order Number: [id number] Reading MD: SURYA MEJÍA Measurements Intervals Edgar Rate: 98 P: 36 WY: 153 QRS: 19 QRSD: 98 T: 28 QT: 353 QTc: 451 Interpretive Statements SINUS RHYTHM No previous ECG available for comparison Electronically Signed On 10-27-2024 20:49:34 EST by SURYA MEJÍA Dictated By: Surya Mejía D.O. Signed By: 10/27/242048 DD/ 54 TD/TT: Manager Story: [facility] Radiology Study observation (narrative) [facility] ECG 12-LEADOrdered By: Radio logist Radiology on 10-27-2024 [facility] Work Phone: [facility] UA (CLEAN/CATCH) TIN ROOFER/YOUSIF RO IF IND.on 10-27-2024 BILIRUBIN URINE Negative NEGATIVE [facility] BLOOD URINE Negative NEGATIVE [facility] Clarity (U) CLEAR CLEAR [facility] Color (U) LT. YELLOW YELLOW [facility] GLUCOSE URINE UA 500 mg/dL Abnormal NEGATIVE [facility] Interpretation and review of laboratory results Abnormal [facility] Ketones Ql (U) Negative NEGATIVE mg/dL [facility] Leukocyte esterase Test strip Ql (U) SMALL Abnormal NEGATIVE [facility] NITRITE URINE Negative NEGATIVE [facility] pH (U) 6.5 [pH] 5.0 - 9.0 [facility] PROTEIN URINE Negative NEG/TRACE mg/dL [facility] SPECIFIC GRAVITY URINE 1.020 1.005 - 1.025 [facility] URINE MICROSCOPIC INDICATED YES [facility] UROBILINOGEN URINE 1.0 EU/dL 0.2 - 1.0 EU/dL [facility] No Panel InformationOrdered By: Radiologist Radiology on 10-23-2024 [facility] Work Phone: No Panel Informationon 10-23 Radiology Study observation (narrative) [facility] US OB BPP W NON-STRESS on 10-23-[address] [address] Ultrasound Report Signed Patient: MADYSON MAI MR#: [id number] : 2000 Acct:[id number] Age/Sex: 23 / F ADM Date: 10/22/24 Loc: US Attending Dr: Osei Malik D.O. Ordering Physician: Osei Malik D.O. Date of Service: 10/22/24 Procedure(s): US OB BPP w non-stress Accession Number(s): [id number] cc: JB MANDUJANO ; Osei Malik D.O. The [place] [id number] Patient Name: MADYSON MAI MRN: [facility]:[id number] date: 2000 Sex: F Assigned Patient Location: [facility] Current Patient Location: Accession/Order Number: [id number] Exam Date: 10/22/2024 17:05 Report Date: 10/23/2024 [...] Signed By: 10/23/24 0745 DD/ 0742 TD/TT: Manager Story: [facility] Radiology, Radiologi MD billy - 10/23/[address] [address] Ultrasound Report Signed Patient: MADYSON MAI MR#: [id number] : 2000 Acct:[id number] Age/Sex: 23 / F ADM Date: 10/22/24 Loc: US Attending Dr: Osei Malik D.O. Ordering Physician: Osei Malik D.O. Date of Service: 10/22/24 Procedure(s): US OB BPP w non-stress Accession Number(s): [id number] cc: JB MANDUJANO ; Osei Malik D.O. [place] [id number] Patient Name: MADYSON MAI MRN: [id number] date: 2000 Sex: F Assigned Patient Location: [facility] Current Patient Location: Accession/Order Number: [id number] Exam Date: 10/22/2024 17:05 Report Date: 10/23/2024 [...] Signed By: 10/23/24 0745 DD/ 0742 TD/TT: Manager Story: [place] [address] Ultrasound Report Signed Patient: MADYSON MAI MR#: [id number] : 2000 Acct:[id number] Age/Sex: 23 / F ADM Date: 10/22/24 Loc: US Attending Dr: Osei Malik D.O. Ordering Physician: Osei Malik D.O. Date of Service: 10/22/24 Procedure(s): US OB BPP w non-stress Accession Number(s): [id number] cc: JB MANDUJANO ; Osei Malik D.O. [place] [address] Patient Name: MADYSON MAI MRN: [facility]:[id number] date: 2000 Sex: F Assigned Patient Location: [facility] Current Patient Location: Accession/Order Number: [id number] Exam Date: 10/22/2024 17:05 Report Date: 10/23/2024 [...] Signed By: 10/23/24 0745 DD/ 0742 TD/TT: Manager Story: [facility] Radiology, Radiologi MD billy - 10/23/2024 The [place] [id number] Ultrasound Report Signed Patient: MADYSON MAI MR#: [id number] : 2000 Acct:[id number] Age/Sex: 23 / F ADM Date: 10/22/24 Loc: US Attending Dr: Osei Malik D.O. Ordering Physician: Osei Malik D.O. Date of Service: 10/22/24 Procedure(s): US OB BPP w non-stress Accession Number(s): [id number] cc: JB MANDUJANO ; Osei Malik D.O. The [place] [address] Patient Name: MADYSON MAI MRN: [id number] date: 2000 Sex: F Assigned Patient Location: [facility] Current Patient Location: Accession/Order Number: [id number] Exam Date: 10/22/2024 17:05 Report Date: 10/23/2024 [...] M.D. Signed By: 10/23/24 0745 DD/ TD/TT: Manager Story: [facility] Urinalysis macro (dipstick) panel (U)on 10-15-2024 Bilirubin, UA Negative Negative - 4(70) +++ mg/dL [facility] Blood, UA Negative Negative - 50 Vasu/mcL [facility] Clarity, UA Clear [facility] Color, UA Yellow [facility] Glucose, UA Positive Negative - 1999(110) ++++ mg/dL [facility] Comment on above: 500 Interpretation and review of laboratory results Abnormal [facility] Ketones, UA Negative Negative - 160(16) ++++ mg/dL [facility] Leukocytes, UA Positive Negative - 500+++ Conrad/mcL [facility] Comment on above: small Nitrite, UA Negative Negative - Positive [facility] pH, UA 6 5 - 9 [facility] Protein, UA Trace Negative - 2000(20) ++++ mg/dL [facility] Spec Grav, UA 1.02 1 - 1.03 [facility] Urobilinogen, UA 0.2 0.2 - 12 mg/dL [facility] Urinalysis macro (dipstick) panel (U)on 10-02-2024 Bilirubin, UA Negative Negative - 4(70) +++ mg/dL [facility] Blood, UA Negative Negative - 50 Vasu/mcL [facility] Clarity, UA Clear [facility] Color, UA Yellow [facility] Glucose, UA Negative Negative - 1999(110) ++++ mg/dL [facility] Interpretation and review of laboratory results Abnormal [facility] Ketones, UA Positive Negative - 160(16) ++++ mg/dL [facility] Comment on above: 40 Leukocytes, UA Trace Negative - 500+++ Conrad/mcL [facility] Nitrite, UA Negative Negative - Positive [facility] pH, UA 6 5 - 9 [facility] Protein, UA Positive Negative - 1999(20) ++++ mg/dL [facility] Comment on above: 30 Spec Grav, UA 1.03 1 - 1.03 [facility] Urobilinogen, UA 0.2 0.2 - 12 mg/dL [facility] UA (CLEAN/CATCH) TIN ROOFER/YOUSIF RO IF IND.on 09-25-2024 BILIRUBIN URINE Negative NEGATIVE [facility] BLOOD URINE Negative NEGATIVE [facility] Clarity (U) CLEAR CLEAR [facility] Color (U) LT. YELLOW YELLOW [facility] GLUCOSE URINE UA 250 mg/dL Abnormal NEGATIVE [facility] Interpretation and review of laboratory results Abnormal [facility] Ketones Ql (U) Negative NEGATIVE mg/dL [facility] Leukocyte esterase Test strip Ql (U) SMALL Abnormal NEGATIVE [facility] NITRITE URINE Negative NEGATIVE [facility] pH (U) 6.0 [pH] 5.0 - 9.0 [facility] PROTEIN URINE Negative NEG/TRACE mg/dL [facility] SPECIFIC GRAVITY URINE 1.020 1.005 - 1.025 [facility] URINE MICROSCOPIC INDICATED YES [facility] UROBILINOGEN URINE 0.2 EU/dL 0.2 - 1.0 EU/dL [facility] Urine Cultureon 09-25-2024 Bacteria identified Cx Nom (U) <9,000 colonies/ml mixed bacterial skin contaminants 2 Days PERFORMED BY: [place] [address] PATHOLOGIST [employer] TRAFFIC MANAGER KARMA BUCK M.D. Normal The [facility] Comment on above: Performed By: #### C UU #### [address] Urinalysis macro (dipstick) panel (U)on 09-18-2024 Bilirubin, UA Negative Negative - 4(70) +++ mg/dL [facility] Blood, UA Negative Negative - 50 Vasu/mcL [facility] Clarity, UA Clear [facility] Color, UA Yellow [facility] Glucose, UA Positive Negative - 1999(110) ++++ mg/dL [facility] Comment on above: 100 Interpretation and review of laboratory results Abnormal [facility] Ketones, UA Negative Negative - 160(16) ++++ mg/dL [facility] Leukocytes, UA Positive Negative - 500+++ Conrad/mcL [facility] Comment on above: small Nitrite, UA Negative Negative - Positive [facility] pH, UA 7 5 - 9 [facility] Protein, UA Trace Negative - 2000(20) ++++ mg/dL [facility] Spec Grav, UA 1.02 1 - 1.03 [facility] Urobilinogen, UA 0.2 0.2 - 12 mg/dL [facility] Urinalysis macro (dipstick) panel (U)on 09-03-2024 Bilirubin, UA Negative Negative - 4(70) +++ mg/dL [facility] Blood, UA Negative Negative - 50 Vasu/mcL [facility] Clarity, UA Clear [facility] Color, UA Yellow [facility] Glucose, UA Many Negative - 2000(110) ++++ mg/dL [facility] Interpretation and review of laboratory results Abnormal [facility] Ketones, UA Positive Negative - 160(16) ++++ mg/dL [facility] Leukocytes, UA Positive Negative - 500+++ Conrad/mcL [facility] Nitrite, UA Negative Negative - Positive [facility] pH, UA 6.5 5 - 9 [facility] Protein, UA Moderate Negative - 2000(20) ++++ mg/dL [facility] Spec Grav, UA 1.025 1 - 1.03 [facility] Urobilinogen, UA 0.2 0.2 - 12 mg/dL [facility] GLUCOSE TOLERANCE 3 HOURon 1 11-02-2023 GLUCOSE TOLERANCE 3 HOUR High mg/dL [facility] Comment on above: GLU FAST 86 (<95) Co l: 09/01/24 0818 GLU 1HR 162 (<180) Col: 09/01/24 0919 GLU 2HR 156H (<155) Col: 09/01/24 1019 GLU 3HR 110 (<140) Col: 09/01/24 1119 Interpretation and review of laboratory results Abnormal [facility] ALL CBC WITH AUTO DIFFon BASOPHILS ABSOLUTE AUTO 0 [facility] Basophils/100 WBC (Bld) 0.2 % 0.2 - 2.0 % [facility] Eosinophils/100 WBC (Bld) 0.7 % Low 0.9 - 7.0 % [facility] Erythrocyte distribution width (RBC) [Ratio] 13.6 % 11.0 - 15.0 % [facility] Hematocrit (Bld) [Volume fraction] 32.9 % Low 36.0 - 48.0 % [facility] Hemoglobin (Bld) [Mass/Vol] 11.1 g/dL Low 12.0 - 16.0 g/dL [facility] IMMATURE GRANULOCYTES ABS AUTO 0.11 High [facility] Immature granulocytes/100 WBC (Bld) 1.1 % High 0.0 - 0.5 % [facility] Interpretation and review of laboratory results Abnormal [facility] LYMPHOCYTES ABSOLUTE AUTO 1.3 [facility] Lymphocytes/100 WBC (Bld) 13 % Low 20.5 - 60.0 % [facility] MCH (RBC) [Entitic mass] 29.6 pg 26.7 - 34.0 pg [facility] MCHC (RBC) [Mass/Vol] 33.7 g/dL 29.9 - 35.2 g/dL [facility] MCV (RBC) [Entitic vol] 87.7 fL 81.0 - 99.0 fL [facility] MONOCYTES ABSOLUTE AUTO 0.6 [facility] Monocytes/100 WBC (Bld) 5.5 % 1.7 - 12.0 % [facility] NEUTROPHILS ABSOLUTE AUTO 7.9 High [facility] Neutrophils/100 WBC (Bld) 79.5 % High 43.0 - 75.0 % [facility] Platelet mean volume (Bld) [Entitic vol] 10.3 fL 9.5 - 13.5 fL [facility] EO # 0.1 [facility] TB PLT 178 [facility] RBC 3.75 Low [facility] WBC 9.9 [facility] IGP,APTIMA HPV,AGE GDLNon -2023 AGE GDLN ACOG TESTING Note . [facility] Comment on above: TESTS RESULT FLAG UN ITS REF RANGE LAB Clinician Provided Cytology Information Source.............Cervix No. of containers..01 ThinPrep Vial Age Algo ACOG Maureen... -23 10 FLAG LEGEND: L-Low Normal,H-High Normal,LL-Alert Low,HH-Alert High <-Panic Low,>-Panic High,A-Abnormal,AA-Critical Abnormal Performed at: 01 =G [facility] [place] [address] [facility], [place] [address] Toya Wilson MD, IGP, RFX APTIMA HPV ASCU Note . [facility] Comment on above: TESTS RESULT FLAG UN ITS REF RANGE LAB DIAGNOSIS: 02 NEGATIVE FOR INTRAEPITHELIAL LESION OR MALIGNANCY. Specimen adequacy: 02 Satisfactory for evaluation. No endocervical component is identified. Performed by: 02 Imelda Miranda Field Application Engineer ([facility]) . 02 Note: Note 02 [...] High,A-Abnormal,AA-Critical Abnormal Performed at: 02 WB [facility] [place] [address] [facility], [place] [address] Toya Wilson MD, Performed at: = - [address] [id number] Wood Mechanist: Toya Wilson MD, Phone: [phone] Performed at: [address] [id number] Wood Mechanist: Toya Wilson MD, Phone: [phone] SPATULA-ALONE CERVIX [facility] AFP, SERUM, OPEN SPINA BIFID Aon 08-13-2024 AFP MOM 2.24 . [facility] AFP VALUE 103.1 ng/mL . [facility] COMMENT: Comment . [facility] Comment on above: Joyce Reina , Ph.D., [facility] Director References: Available Upon Request. Multiples Of Median Cutoffs For AFP Elevations Harrington 2.5 Black 2.8 IDD 2.0 Twins 4.5 Abbreviation Definitions IDD - Insulin Dep Diabetes OSBR - Open Spina Bifida Risk For further inquiries contact [facility] at [phone]. This test was developed and its performance characteristics determined by [employer]. It has not been cleared or approved by the Food and Drug Administration. Performed at: [facility] [address] [place], [place] [id number] Wood Mechanist: Angel Regan [facility], Phone: [phone] GEST. AGE ON COLLECTION DATE 20.3 . weeks [facility] GESTAT. AGE BASED ON LMP . [facility] Comment on above: Recalculations are n ot recommended when gestational dating by LMP and ultrasound are within 10 days. INSULIN DEP DIABETES No . [facility] INTERPRETATION Comment . [facility] Comment on above: Interpretation: Scre en [...] Customer Services to discuss available options. The [employer] recommends amniocentesis be offered to women age 35 and older. [age] [facility] MULTIPLE GESTATION Twins . [facility] OSBR RISK 1 IN 1081 . [facility] RACE . [facility] RESULTS Report . [facility] TEST RESULTS: Negative . [facility] WEIGHT 219 . lbs [facility] N N LMP [id number] 19 N 2 Y 219 N N N N N White/ [facility] US for pregnancyon 4 THIS EXAM WAS PERFOR MED AT [facility] Coding ====== Procedures 33844: Comprehensive Detailed Anatomy Ultrasound 17597: Comprehensive Detailed Anatomy Ultrasound- Additional Fetus 77942: Transvaginal Ultrasound (OB) Indication ======== Di-Di twin [...] 0 lb 13 oz EFW by Hadlock ([id number]-FL) EFW discordance 10.9 % Head / Face / Neck Biometry: Cephalic index 0.81 73% Nicola[place] [employer] Magistrate 6.4 mm CM 4.4 mm 26% Nicolaides [...] 0 lb 14 oz EFW by Hadlock (VHE-JK-ZQ-FL) EFW discordance 10.9 % Head / Face / Neck Biometry: Cephalic index 0.71 1% [place] Magistrate 6.8 mm CM 4.3 mm 23% Nicolaides [...] Heart / Th (more content not included)... [facility] Radiology, Radiologi MD billy - 08/13/2024 THIS EXAM WAS PERFORMED AT [facility] Coding ====== Procedures 01670: Comprehensive Detailed Anatomy Ultrasound 94930: Comprehensive Detailed Anatomy Ultrasound- Additional Fetus 78298: Transvaginal Ultrasound (OB) Indication ======== Di-Di twin [...] 0 lb 13 oz EFW by Hadlock (ODH-IE-PP-FL) EFW discordance 10.9 % Head / Face / Neck Biometry: Cephalic index 0.81 73% [place] Magistrate 6.4 mm CM 4.4 mm 26% Nicolaides [...] 0 lb 14 oz EFW by Hadlock (EOQ-AA-EY-FL) EFW discordance 10.9 % Head / Face / Neck Biometry: Cephalic index 0.71 1% Nicola[address] Magistrate 6.8 mm CM 4.3 mm 23% Nicolaides [...] Heart / Thorax 4-chamber view. 3-vessel view. 1-isuous-qmxmdhv view. Interventricular septum. Diaphragm. Abdomen Right renal [...] Nuchal fold. F (more content not included)... [facility] Radiology Study observation (narrative) [facility] US for pregnancyOrdered By: Radiologist Radiology on 08-13-2024 [facility] Work Phone: RECURRENT VAGINITIS (HTRX)on 08-07-2024 ATOPOBIUM VAGINAE 29.356 Abnormal [facility] ATOPOBIUM VAGINAE Detected Abnormal [facility] BVAB 2,3 (BACTERIAL VAGINOSIS ASSOCIATED BACTERIA 2, 3); MOBILUNCUS SPP 0 [facility] BVAB 2,3 (BACTERIAL VAGINOSIS ASSOCIATED BACTERIA 2, 3); MOBILUNCUS SPP Not detected [facility] SANTHOSH ALBICANS, PARAPSILOSIS, TROPICALIS 0 [facility] SANTHOSH ALBICANS, PARAPSILOSIS, TROPICALIS Not detected [facility] SANTHOSH GLABRATA 0 [facility] SANTHOSH GLABRATA Not detected [facility] SANTHOSH KRUSEI 0 [facility] SANTHOSH KRUSEI Not detected [facility] CHLAMYDIA TRACHOMATIS 0 [facility] CHLAMYDIA TRACHOMATIS Not detected N [facility] GARDNERELLA VAGINALIS 0 [facility] GARDNERELLA VAGINALIS Not detected N [facility] Interpretation and review of laboratory results Abnormal [facility] MEGASPHAERA (TYPES 1, 2) 0 [facility] MEGASPHAERA (TYPES 1, 2) Not detected [facility] MYCOPLASMA GENITALIUM 0 [facility] MYCOPLASMA GENITALIUM Not detected N [facility] NEISSERIA GONORRHOEAE 0 [facility] NEISSERIA GONORRHOEAE Not detected N [facility] TRICHOMONAS VAGINALIS 0 [facility] TRICHOMONAS VAGINALIS Not detected N [facility] Urinalysis macro (dipstick) panel (U)on 08-05-2024 Bilirubin, UA Negative Negative - 4(70) +++ mg/dL [facility] Blood, UA Negative Negative - 50 Vasu/mcL [facility] Clarity, UA Clear [facility] Color, UA Yellow [facility] Glucose, UA Negative Negative - 1999(110) ++++ mg/dL [facility] Interpretation and review of laboratory results Normal [facility] Ketones, UA Negative Negative - 160(16) ++++ mg/dL [facility] Leukocytes, UA Negative Negative - 500+++ Conrad/mcL [facility] Nitrite, UA Negative Negative - Positive [facility] pH, UA 5.5 5 - 9 [facility] Protein, UA Negative Negative - 1999(20) ++++ mg/dL [facility] Spec Grav, UA 1.02 1 - 1.03 [facility] Urobilinogen, UA 1.0 0.2 - 12 mg/dL [facility] Urinalysis macro (dipstick) panel (U)on 07-03-2024 Bilirubin, UA Negative Negative - 4(70) +++ mg/dL [facility] Blood, UA Negative Negative - 50 Vasu/mcL [facility] Clarity, UA Clear [facility] Color, UA Yellow [facility] Glucose, UA Positive Negative - 1999(110) ++++ mg/dL [facility] Comment on above: 500 Interpretation and review of laboratory results Abnormal [facility] Ketones, UA Negative Negative - 160(16) ++++ mg/dL [facility] Leukocytes, UA Negative Negative - 500+++ Conrad/mcL [facility] Nitrite, UA Negative Negative - Positive [facility] pH, UA 6.0 5 - 9 [facility] Protein, UA Negative Negative - 1999(20) ++++ mg/dL [facility] Spec Grav, UA 1.015 1 - 1.03 [facility] Urobilinogen, UA 0.2 0.2 - 12 mg/dL [facility] Urinalysis macro (dipstick) panel (U)Ordered By: Ibis Sandoval on 06-04-2024 Bilirubin, UA Negative Negative - 4(70) +++ mg/dL [facility] Blood, UA Positive Negative - 50 Vasu/mcL [facility] Comment on above: trace-intact Clarity, UA Clear [facility] Color, UA Yellow [facility] Glucose, UA Negative Negative - 1999(110) ++++ mg/dL [facility] Interpretation and review of laboratory results Abnormal [facility] Ketones, UA Negative Negative - 160(16) ++++ mg/dL [facility] Leukocytes, UA Trace Negative - 500+++ Conrad/mcL [facility] Nitrite, UA Negative Negative - Positive [facility] pH, UA 5.5 5 - 9 [facility] Protein, UA Negative Negative - 2000(20) ++++ mg/dL [facility] Spec Grav, UA 1.005 1 - 1.03 [facility] Urobilinogen, UA 0.2 0.2 - 12 mg/dL [facility] ALL CBC WITH AUTO DIFFon BASOPHILS ABSOLUTE AUTO 0.0 [facility] Basophils/100 WBC (Bld) 0.5 % 0.2 - 2.0 % [facility] Eosinophils/100 WBC (Bld) 0.5 % Low 0.9 - 7.0 % [facility] Erythrocyte distribution width (RBC) [Ratio] 11.9 % 11.0 - 15.0 % [facility] IMMATURE GRANULOCYTES ABS AUTO 0.03 [facility] Immature granulocytes/100 WBC (Bld) 0.4 % 0.0 - 0.5 % [facility] Interpretation and review of laboratory results Abnormal [facility] LYMPHOCYTES ABSOLUTE AUTO 1.8 [facility] Lymphocytes/100 WBC (Bld) 23.3 % 20.5 - 60.0 % [facility] MCH (RBC) [Entitic mass] 29.7 pg 26.7 - 34.0 pg [facility] MCHC (RBC) [Mass/Vol] 34.9 g/dL 29.9 - 35.2 g/dL [facility] MCV (RBC) [Entitic vol] 85.1 fL 81.0 - 99.0 fL [facility] MONOCYTES ABSOLUTE AUTO 0.5 [facility] Monocytes/100 WBC (Bld) 6.3 % 1.7 - 12.0 % [facility] NEUTROPHILS ABSOLUTE AUTO 5.4 [facility] Neutrophils/100 WBC (Bld) 69.0 % 43.0 - 75.0 % [facility] Platelet mean volume (Bld) [Entitic vol] 10.3 fL 9.5 - 13.5 fL [facility] TBH EO # 0.0 [facility] PLT 206 [facility] RBC 4.55 [facility] WBC 7.8 [facility] Laboratory - Hematology and Cell countson 05-24-2024 Hematocrit (Bld) [Volume fraction] 38.7 % [facility] Hemoglobin (Bld) [Mass/Vol] 13.5 g/dL [facility] No Panel Informationon 05-24 [facility] HCG ( test) Ql (U)o n 05-23-2024 Interpretation and review of laboratory results Abnormal [facility] Preg Test, Ur Positive [facility] Urinalysis macro (dipstick) panel (U)on 05-23-2024 Bilirubin, UA Negative Negative - 4(70) +++ mg/dL [facility] Blood, UA Negative Negative - 50 Vasu/mcL [facility] Clarity, UA Clear [facility] Color, UA Yellow [facility] Glucose, UA Negative Negative - 2000(110) ++++ mg/dL [facility] Interpretation and review of laboratory results Normal [facility] Ketones, UA Negative Negative - 160(16) ++++ mg/dL [facility] Leukocytes, UA Negative Negative - 500+++ Conrad/mcL [facility] Nitrite, UA Negative Negative - Positive [facility] pH, UA 7.0 5 - 9 [facility] Protein, UA Negative Negative - 2000(20) ++++ mg/dL [facility] Spec Grav, UA 1.025 1 - 1.03 [facility] Urobilinogen, UA 1.0 0.2 - 12 mg/dL [facility] CHEMISTRYOrdered By: SYSTEM SYSTEM on 04-12-2024 Progesterone [...] Progesterone Lvl 31.70 ng/mL Invalid Interpretation Code [facility] Comment on above: Result Comment: 'F N ON FOLLICULAR = 0.10 - 0.60' 'LUTEAL = 3.00 - 17.5' 'MIDLUTEAL = 3.30 - 18.6' 'POST-MENOPAUSE = 0.10 - 0.40' '-FIRST TRIMESTER = 8.30 - 66.5' 'SECOND TRIMESTER = 18.9 - 66.1' 'THIRD TRIMESTER = 35.8 - 312.4' 'MALES = 0.14 - 2.06' Performed By: #### 2 [id number] #### [facility] [address] [place] [address] CHEMISTRYOrdered By: SYSTEM SYSTEM on 03-14-2024 Progesterone [...] Consent for Treatmenton 02-23 Consent for Treatment [id number]#1.00TIFF Normal [facility] Physician Orderon 03-14-2024 Physician Order [id number]#1.00TIFF Normal [facility] Progesteroneon 03-14-2024 Progesterone Lvl 16.15 ng/mL Invalid Interpretation Code [facility] Comment on above: Result Comment: 'F N ON FOLLICULAR = 0.10 - 0.60' 'LUTEAL = 3.00 - 17.5' 'MIDLUTEAL = 3.30 - 18.6' 'POST-MENOPAUSE = 0.10 - 0.40' '-FIRST TRIMESTER = 8.30 - 66.5' 'SECOND TRIMESTER = 18.9 - 66.1' 'THIRD TRIMESTER = 35.8 - 312.4' 'MALES = 0.14 - 2.06' Performed By: #### 2 [id number] #### [facility] [address] [place] [address] Ambulatory Visit Summaryon 0 12-11-2023 Ambulatory Visit [...] 11:20 AM EDT With: Krista Daley Where: [facility] Medicine [place] Normal [facility] Family Medicine Office/Clini c Noteon 12-11-2023 Family Medicine Office/Clinic Note HPI Staff Madyson is a 23 year old female presenting to establish care Establish Care: History: Any previous diagnosis: POTS (11/30/23) History of seeing any specialist: Jyoti Dickey 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 BMI 33.0-33.9,adult (Z68.33: Body mass index [BMI] 33.0-33.9, adult) BMI education complete Ordered: omeprazole, 40 mg = 1 cap(s), Oral, Daily, # 30 cap(s), Refills(s) 1, Pharmacy: [facility], 168.3, cm, 12/11/23 13:07:00 EDT, Height/Length Dosing, 93.6, kg, 12/11/23 13:07:00 EDT, Weight Dosing 3. Class 1 obesity due to excess calories in adult (E66.09: Other obesity due to excess calories) see above Ordered: omeprazole, 40 mg = 1 cap(s), Oral, Daily, # 30 cap(s), Refills(s) 1, Pharmacy: [facility], 168.3, cm, 12/11/23 13:07:00 EDT, Height/Length [...] 03/05/2002 Recorded (more content not included)... Normal [facility] Comment on above: Result Comment: Elec tronically Signed By: Krista Daley\.br\Date and Time Signed: 12/11/23 13:32 EDT CNOVon 11-30-2023 CNOV Office Visit (NENMMN ) ----- MADYSON MAI ([id number]) 2 F Date Time Provider Department 11/30/23 10:00 AM JYOTI DICKEYSCARRON During your visit today, we recorded the following information about you: Pulse Blood pressure Weight Height 84/minute 118/79 93 kg 1.651 m Jyoti Dickey PA-C 11/30/2023 11:14 AM Signed [facility] New Patient Evaluation [...] experienced LOC while walking up the stairs. [place] prodromal symptoms including lightheadedness and tunnel vision. [...] Urination: + (more content not included)... Normal [facility] ECHOon 11-12-2023 Echocardiography Echocardiography Rep ort: Transthoracic Echo [facility] A17 Date of service: 11/12/2023 1:08:10 PM CARVER Ordering physician: AURORA SANTIAGO Indication: Initial evaluation [...] * * Final * * * CC [employer] Medical Image : [id number] Normal [facility] CNOVon 10-10-2023 CNOV Office Visit (NEADMN ) ----- MADYSON MAI ([id number]) 2 F Date Time Provider Department 10/10/23 2:00 PM AURORA SANTIAGO NEADMN During your visit today, we recorded the following information about you: Pulse Blood pressure Weight Height 108/minute 119/85 93 kg 1.651 m Aurora Santiago PA-C 10/10/2023 4:33 PM Signed [facility] New Patient Evaluation CHIEF COMPLAINT: to rule out autonomic disorder Madysonlady Schmid is a 22 year old [...] on BC (more content not included)... Normal [facility] Quantiferon-TB Plus (Client Incubated)on 07-26-2023 Gamma interferon background IA Qn (Bld) 0.01 International_Unit/mL Invalid Interpretation Code [facility] Comment on above: Performed By: #### 1 [id number], [id number] #### Martín [facility] [address] [place] [address] M. tuberculosis stim IFN-g by CD4+ CD8+ T-cells Qn (Bld) 0.30 International_Unit/mL Invalid Interpretation Code [facility] Comment on above: Performed By: #### 1 [id number] #### [facility] [address] [place] [address] M. tuberculosis stim IFN-g by CD4+ T-cells Qn (Bld) 0.23 International_Unit/mL Invalid Interpretation Code [facility] Comment on above: Performed By: #### 1 [id number], [id number] #### [facility] [address] [place] [address] M. tuberculosis stim IFN-g Ql (Bld) [Interp] Negative Invalid Interpretation Code Negative [facility] Comment on above: Result Comment: No [...] interferon gamma. Chemiluminescence immunoassay methodology Performed at: [facility] [id number] PhD Rubio Vinson Performed By: #### 1 [id number], [id number], [id number] #### [facility] [address] [place] [address] Mitogen stimulated gamma interferon Qn (Bld) >10.00 Invalid Interpretation Code [facility] Comment on above: Performed By: #### 1 [id number], [id number], [id number] #### [facility] [address] [place] [address] Service comment (Unsp spec) [Interp] Comment Invalid Interpretation Code [facility] Comment on above: Result Comment: Link [...] for the test. Performed By: #### 1 [id number], [id number], [id number], [id number] #### [facility] [address] [place] [address] Hep Bs Abon 07-25-2023 HBV surface Ab Ql (S) Non-Reactive Invalid Interpretation Code [facility] Comment on above: Result Comment: Non Reactive: Inconsistent with immunity, less than 10 mIU/mL Reactive: Consistent with immunity, greater than 9.9 mIU/mL Performed at: [facility] [id number] PhD Rubio Vinson Performed By: #### 1 [id number], [id number], [id number], [id number] #### [facility] [address] [place] [address] Measles/Mumps/Rubella Immuni tyon 07-25-2023 MeV IgG IA Qn (S) 34.3 A unit/mL Invalid Interpretation Code Immune >16.4 [facility] Comment on above: Result Comment: Nega tive <13.5 Equivocal 13.5 - 16.4 Positive >16.4 Presence of antibodies to Rubeola is presumptive evidence of immunity except when acute infection is suspected. Performed By: #### 1 [id number], [id number], [id number], [id number] #### [facility] [address] [place] [address] MuV IgG IA Qn (S) <9.0 Low Immune >10.9 [facility] Comment on above: Result Comment: Nega tive <9.0 Equivocal 9.0 - 10.9 Positive >10.9 A positive result generally indicates past exposure to Mumps virus or previous vaccination. Performed at: [facility] [address], [place] [id number] PhD Rubio Vinson Performed By: #### 1 [id number], [id number], [id number], [id number] #### [facility] [address] [place] [address] Rubella virus IgG Qn (S) 1.53 [IU]/mL Invalid Interpretation Code Immune >0.99 [facility] Comment on above: Result Comment: Non- immune <0.90 Equivocal 0.90 - 0.99 Immune >0.99 Performed By: #### 1 [id number], [id number], [id number], [id number] #### [facility] [address] [place] [address] Varic IgGon 07-25-2023 VZV IgG IA Qn (S) 475 Invalid Interpretation Code Immune >165 [facility] Comment on above: Result Comment: Nega tive <135 Equivocal 135 - 165 Positive >165 A positive result generally indicates exposure to the pathogen or administration of specific immunoglobulins, but it is not indication of active infection or stage of disease. Performed at: [facility] [address] [place], [place] [id number] PhD Rubio Vinson Performed By: #### 1 [id number], [id number], [id number], [id number] #### [facility] [address] [place] [address] CNOVon 07-10-2023 CNOV Office Visit (ORFWHP ) ----- MADYSON SCHMID ([id number]) 2 F Date Time Provider Department 07/10/23 9:40 AM JOSE ARMANDO GREY ORFWHP During your visit today, we recorded the following information about you: Jose Armando Grey DO 07/10/2023 10:08 AM Signed [facility] Office Visit Documentation Note [facility] Sports Medicine Orthopaedic and Rheumatologic [place] HISTORY OF PRESENT ILLNESS (HPI) CHIEF COMPLAINT / REASON FOR VISIT SERVICE DATE: July 10, 2023 PCP: No primary care provider on file. Madyson Schmid is here today at request of Dr. Jose Armando Schmid specifically for consultation of my opinion in regards to the chief complaint listed below. Correspondence will be shared today via the [employer] electronic health record or through regular mail, [...] to consider PT or personal computer network analyst. Reaction knee brace Consider [place] toradol, did discuss orthobiologics Follow up: Films prior to visit: Written instructions (see patient instructions) and verbal health education given to patient. Patient verbalizes understanding and agrees with the treatment plan. Jose Armando Grey D.O. [facility] Orthopaedic [facility] Rheumat[facility] [place], [place] [facility] AND [employer] Program Team Physician, [facility] Baseball [employer] Consulting Physician, [place] Martin Nagel, Patrol Lady [phone] Referring Provider: SELF [200] Allergies As of [...] Level of (more content not included)... Normal [facility] HEART CENTERon 10-17 -2023 [facility] Tobacco Screening.on 023 Adult depression screening assessment No [facility] [employer] DO Work Phone: Tobacco use status CPHS b) No [facility] [employer] 600 DO Work Phone: Activated partial thrombopla stin time (aPTT) in platelet poor plasma by coagulation aOrdered By: Haris Martino on 06-08-2023 aPTT Coag (PPP) [Time] 28.9 s 25.1-36.5 [facility] Comment on above: A hematocrit value g reater than 55% may lead to inaccurate results in coagulation testing. Patients having hematocrit values >55% require a special collection tube for coagulation studies. Please contact the laboratory at [phone] for redraw instructions. Alanine aminotransferase [En zymatic activity/volume] in Serum or PlasmaOrdered By: Haris Martino on 06-08-2023 ALT [Catalytic activity/Vol] 42 U/L 7-52 [facility] Albumin [Mass/volume] in Ser um or Plasma by Bromocresol green (BCG) dye binding methoOrdered By: Haris Martino on 06-08-2023 Albumin BCG dye [Mass/Vol] 4.6 g/dL 3.5-5.7 [facility] Alkaline phosphatase [Enzyma tic activity/volume] in Serum or PlasmaOrdered By: Haris Martino on 06-08-2023 ALP [Catalytic activity/Vol] 78 U/L 34-104 [facility] Aspartate aminotransferase [ Enzymatic activity/volume] in Serum or PlasmaOrdered By: Haris Martino on 06-08-2023 AST [Catalytic activity/Vol] 22 U/L 13-39 [facility] Automated erythrocytes count in urine sediment (number/area)Ordered By: Haris Martino on 06-08-2023 RBC Auto (Urine sed) [#/Area] 5-9 [HPF] 0-4 [facility] Automated leukocytes count i n urine sediment (number/area)Ordered By: Haris Martino on 06-08-2023 WBC Auto (Urine sed) [#/Area] 3-4 [HPF] 0-4 [facility] Basophils Auto (Bld) [#/Vol] Ordered By: Haris Martino on 06-08-2023 Basophils (Bld) [#/Vol] 0.1 10*3/uL 0.0-0.2 [facility] Basophils/100 WBC Auto (Bld) Ordered By: Haris Martino on 06-08-2023 Basophils/100 WBC (Bld) 1.0 % . [facility] Bilirubin Test strip Ql (U)O rdered By: Haris Martino on 06-08-2023 Bilirubin Ql (U) Negative Negative [facility] Bilirubin.direct [Mass/volum e] in Serum or PlasmaOrdered By: Haris Martino on 06-08-2023 Bilirubin.direct [Mass/Vol] 0.10 mg/dL 0.03-0.18 [facility] Bilirubin.total [Mass/volume ] in Serum or PlasmaOrdered By: Haris Martino on 06-08-2023 Bilirubin [Mass/Vol] 0.4 mg/dL 0.3-1.0 [facility] Calcium [Mass/volume] in Ser um or PlasmaOrdered By: Haris Martino on 06-08-2023 Calcium [Mass/Vol] 9.4 mg/dL 8.6-10.3 [facility] Carbon dioxide, total [Moles /volume] in Serum or PlasmaOrdered By: Haris Martino on 06-08-2023 CO2 [Moles/Vol] 29.3 mmol/L 21.0-31.0 [facility] Chloride [Moles/volume] in S colin or PlasmaOrdered By: Haris Martino on 06-08-2023 Chloride [Moles/Vol] 104 mmol/L 98-107 [facility] Color Auto (U)Ordered By: Terrell Martino on 06-08-2023 Color (U) Yellow Yellow [facility] Creatine kinase [Enzymatic a ctivity/volume] in Serum or PlasmaOrdered By: Haris Martino on 06-08-2023 CK [Catalytic activity/Vol] 55 U/L 30-223 [facility] Creatinine [Mass/volume] in Serum or PlasmaOrdered By: Haris Martino on 06-08-2023 Creatinine [Mass/Vol] 0.64 mg/dL 0.60-1.20 [facility] Eosinophils Auto (Bld) [#/Vo l]Ordered By: Haris Martino on 06-08-2023 Eosinophils (Bld) [#/Vol] 0.1 10*3/uL 0.0-0.45 [facility] Eosinophils/100 WBC Auto (Bl d)Ordered By: Haris Martino on 06-08-2023 Eosinophils/100 WBC (Bld) 0.8 % . [facility] Erythrocyte distribution wid th Auto (RBC) [Ratio]Ordered By: Haris Martino on 06-08-2023 Erythrocyte distribution width (RBC) [Ratio] 12.9 % 11.9-15.3 [facility] Fibrin D-dimer [Presence] in Platelet poor plasma by Latex agglutinationOrdered By: Haris Martino on 06-08-2023 Fibrin D-dimer LA Ql (PPP) < 200 ng/mL 0-243 [facility] Comment on above: The reference range [...] coagulation studies. Please contact the laboratory at [phone] for redraw instructions. Globulin Calc (S) [Mass/Vol] Ordered By: Haris Martino on 06-08-2023 Globulin (S) [Mass/Vol] 2.9 g/dL [facility] Glucose [Mass/volume] in Ser um or PlasmaOrdered By: Haris Martino on 06-08-2023 Glucose [Mass/Vol] 79 mg/dL 70-100 [facility] Comment on above: ADA recommended refe rence rangeRandom Glucose Reference Range is dependent on time and content of last meal. Glucose of more than 200 mg/dL in a nonstressed, ambulatory subject supports the diagnosis of Diabetes Mellitus. HCG ( test) IA.rapi d Ql (U)Ordered By: Haris Martino on 06-08-2023 HCG ( test) Ql (U) Negative [facility] Hematocrit Auto (Bld) [Volum e fraction]Ordered By: Haris Martino on 06-08-2023 Hematocrit (Bld) [Volume fraction] 42.4 % 34.0-46.4 [facility] Hemoglobin [Mass/volume] in BloodOrdered By: Haris Martino on 06-08-2023 Hemoglobin (Bld) [Mass/Vol] 14.5 g/dL 11.8-15.4 [facility] INR in Platelet poor plasma by Coagulation assayOrdered By: Haris Martino on 06-08-2023 INR Coag (PPP) [Relative time] 1.0 {INR} [facility] Comment on above: INR Therapeutic Rang [...] on 06-08-2023 Ketones (U) [Mass/Vol] Negative Negative [facility] - UrinalysisOrder ed By: Haris Martino on 06-08-2023 Hyaline casts LM Ql (Urine sed) 0-8 [LPF] 0-8 [facility] Leukocytes [#/volume] correc matt for nucleated erythrocytes in Blood by Automated counOrdered By: Haris Martino on 06-08-2023 WBC corrected for nucl RBC Auto (Bld) [#/Vol] 8.3 10*3/uL 3.8-11.6 [facility] Lymphocytes Auto (Bld) [#/Vo l]Ordered By: Haris Martino on 06-08-2023 Lymphocytes (Bld) [#/Vol] 3.0 10*3/uL 1.00-4.8 [facility] Lymphocytes/100 WBC Auto (Bl d)Ordered By: Haris Martino on 06-08-2023 Lymphocytes/100 WBC (Bld) 36.0 % . [facility] MCH Auto (RBC) [Entitic mass ]Ordered By: Haris Martino on 06-08-2023 MCH (RBC) [Entitic mass] 29.4 pg 24.7-34.3 [facility] MCHC Auto (RBC) [Mass/Vol]Or dered By: Haris Martino on 06-08-2023 MCHC (RBC) [Mass/Vol] 34.2 g/dL 32.0-35.0 [facility] MCV Auto (RBC) [Entitic vol] Ordered By: Haris Martino on 06-08-2023 MCV (RBC) [Entitic vol] 85.9 fL 80-100 [facility] Monocyte distribution width [Entitic volume] in Blood by AutomatedOrdered By: Haris Martino on 06-08-2023 Monocyte distribution width Auto (Bld) [Entitic vol] 18.39 % 0.00-20.00 [facility] Monocytes Auto (Bld) [#/Vol] Ordered By: Haris Martino on 06-08-2023 Monocytes (Bld) [#/Vol] 0.5 10*3/uL 0.0-0.8 [facility] Monocytes/100 WBC Auto (Bld) Ordered By: Haris Martino on 06-08-2023 Monocytes/100 WBC (Bld) 6.6 % . [facility] Natriuretic peptide B [Mass/ Vol]Ordered By: Haris Martino on 06-08-2023 Natriuretic peptide B (Bld) [Mass/Vol] 9.0 pg/mL 5-100 [facility] Neutrophils Auto (Bld) [#/Vo l]Ordered By: Haris Martino on 06-08-2023 Neutrophils (Bld) [#/Vol] 4.6 10*3/uL 1.8-7.7 [facility] Neutrophils/100 WBC Auto (Bl d)Ordered By: Haris Martino on 06-08-2023 Neutrophils/100 WBC (Bld) 55.6 % . [facility] Nitrite Test strip Ql (U)Ord ered By: Haris Martino on 06-08-2023 Nitrite Ql (U) Negative Negative [facility] No Panel InformationOrdered By: Haris Martino on 06-08-2023 Estimated GFR (CKD-EPI) > 60.0 mL/Min [facility] Creatinine Clearance (Chem 155.50 [facility] Nucleated erythrocytes [Pres ence] in Blood by Automated countOrdered By: Haris Martino on 06-08-2023 Nucleated RBC Auto Ql (Bld) 0.1 /100{WBC} 0-0.5 [facility] Platelet mean volume Auto (B ld) [Entitic vol]Ordered By: Haris Martino on 06-08-2023 Platelet mean volume (Bld) [Entitic vol] 8.2 fL 6.3-10.7 [facility] Platelets Auto (Bld) [#/Vol] Ordered By: Haris Martino on 06-08-2023 Platelets (Bld) [#/Vol] 225 10*3/uL 150-450 [facility] Potassium [Moles/volume] in Serum or PlasmaOrdered By: Haris Martino on 06-08-2023 Potassium [Moles/Vol] 4.0 mmol/L 3.5-5.1 [facility] Protein Auto test strip (U) [Mass/Vol]Ordered By: Haris Martino on 06-08-2023 Protein (U) [Mass/Vol] Negative Negative [facility] Protein [Mass/volume] in Ser um or PlasmaOrdered By: Haris Martino on 06-08-2023 Protein [Mass/Vol] 7.5 g/dL 6.4-8.9 [facility] Prothrombin time (PT)Ordered By: Haris Martino on 06-08-2023 PT Coag (PPP) [Time] 12.2 s 9.0-12.9 [facility] Comment on above: A hematocrit value g reater than 55% may lead to inaccurate results in coagulation testing. Patients having hematocrit values >55% require a special collection tube for coagulation studies. Please contact the laboratory at [phone] for redraw instructions. RBC Auto (Bld) [#/Vol]Ordere d By: Haris Martino on 06-08-2023 RBC (Bld) [#/Vol] 4.94 10*6/uL 3.60-5.00 [facility] Serum or plasma albumin/glob ulin mass ratioOrdered By: Haris Martino on 06-08-2023 Albumin/Globulin [Mass ratio] 1.6 {ratio} [facility] Serum or plasma anion gap de terminationOrdered By: Haris Martino on 06-08-2023 Anion gap [Moles/Vol] 9.7 mmol/L 6.0-15.0 [facility] Serum or plasma non-glucuron idated bilirubin measurement (mass/volume)Ordered By: Haris Martino on 06-08-2023 Bilirubin.indirect [Mass/Vol] 0.3 mg/dL [facility] Sodium [Moles/volume] in Ser um or PlasmaOrdered By: Haris Martino 06-08-2023 Sodium [Moles/Vol] 139 mmol/L 136-145 [facility] Specific gravity Auto test s trip (U) [Rel density]Ordered By: Haris Martino 06-08-2023 Specific gravity (U) [Rel density] 1.015 1.001-1.03 0 [facility] Squamous epithelial cells de tection in urine sediment by light microscopyOrdered By: Haris Martino 06-08-2023 Epithelial cells.squamous LM Ql (Urine sed) 3-4 [HPF] 0-2 [facility] Troponin I.cardiac [Mass/vol ume] in Serum or Plasma by Detection limit <= 0.01 ng/Ordered By: Haris Martino on 06-08-2023 Troponin I.cardiac DL <= 0.01 ng/mL [Mass/Vol] < 2.3 pg/mL 0.0-15.0 [facility] Urea nitrogen [Mass/volume] in Serum or PlasmaOrdered By: Haris Martino 06-08-2023 Urea nitrogen [Mass/Vol] 10 mg/dL 7-25 [facility] Urine bacteria detection by automated methodOrdered By: Haris Martino on 06-08-2023 Bacteria Auto Ql (U) 1+ None Seen [facility] Urine clarity by refractomet ry automatedOrdered By: Haris Martino on 06-08-2023 Clarity Refractometry automated (U) Clear Clear [facility] Urine glucose measurement by automated test strip (mass/volume)Ordered By: Haris Martino on 06-08-2023 Glucose Auto test strip (U) [Mass/Vol] Normal mg/dL Normal [facility] Urine hemoglobin detection b y automated test stripOrdered By: Haris Martino on 06-08-2023 Hemoglobin Auto test strip Ql (U) Negative Negative [facility] Urine leukocyte esterase det ection by automated test stripOrdered By: Haris Martino on 06-08-2023 Leukocyte esterase Auto test strip Ql (U) 1+ Negative [facility] Urobilinogen Auto test strip (U) [Mass/Vol]Ordered By: Haris Martino on 06-08-2023 Urobilinogen (U) [Mass/Vol] Normal mg/dL Normal [facility] WBC Auto (Bld) [#/Vol]Ordere d By: Haris Martino on 06-08-2023 WBC (Bld) [#/Vol] 8.3 10*3/uL 3.8-11.6 [facility] pH Auto test strip (U)Ordere d By: Haris Martino on 06-08-2023 pH (U) 6.5 [pH] 5.0-9.0 [facility] Alanine aminotransferase [En zymatic activity/volume] in Serum or PlasmaOrdered By: Carlitos Nguyen on 04-25-2023 ALT [Catalytic activity/Vol] 18 U/L 7-52 [facility] Albumin [Mass/volume] in Ser um or Plasma by Bromocresol green (BCG) dye binding methoOrdered By: Carlitos Nguyen on 04-25-2023 Albumin BCG dye [Mass/Vol] 4.8 g/dL 3.5-5.7 [facility] Alkaline phosphatase [Enzyma tic activity/volume] in Serum or PlasmaOrdered By: Carlitos Nguyen on 04-25-2023 ALP [Catalytic activity/Vol] 73 U/L 34-104 [facility] Aspartate aminotransferase [ Enzymatic activity/volume] in Serum or PlasmaOrdered By: Carlitos Nguyen on 04-25-2023 AST [Catalytic activity/Vol] 18 U/L 13-39 [facility] Bilirubin.total [Mass/volume ] in Serum or PlasmaOrdered By: Carlitos Nguyen on 04-25-2023 Bilirubin [Mass/Vol] 0.5 mg/dL 0.3-1.0 [facility] Calcium [Mass/volume] in Ser um or PlasmaOrdered By: Carlitos Nguyen on 04-25-2023 Calcium [Mass/Vol] 9.9 mg/dL 8.6-10.3 [facility] Carbon dioxide, total [Moles /volume] in Serum or PlasmaOrdered By: Carlitos Nguyen on 04-25-2023 CO2 [Moles/Vol] 25.9 mmol/L 21.0-31.0 [facility] Chloride [Moles/volume] in S colin or PlasmaOrdered By: Carlitos Nguyen on 04-25-2023 Chloride [Moles/Vol] 105 mmol/L 98-107 [facility] Cholesterol [Mass/volume] in Serum or PlasmaOrdered By: Carlitos Nguyen on 04-25-2023 Cholesterol [Mass/Vol] 208 mg/dL 140-200 [facility] Comment on above: Chol less than 200 m g/dl low riskChol 201-239 mg/dl borderline riskChol 240 mg/dl and greater high risk Cholesterol in LDL Calc [Mas s/Vol]Ordered By: Carlitos Nguyen on 04-25-2023 Cholesterol in LDL [Mass/Vol] 136 mg/dL 0-100 [facility] Comment on above: LDL ATP III CLASSIFI CATIONLDL less than 100 mg/dL OptimalLDL 100-129 mg/dL Near or above optimalLDL 130-159 mg/dL Borderline highLDL 160-189 mg/dL HighLDL greater than 189 mg/dL Very high Cholesterol in VLDL Calc [Ma ss/Vol]Ordered By: Carlitos Nguyen on 04-25-2023 Cholesterol in VLDL [Mass/Vol] 16 mg/dL [facility] Creatinine [Mass/volume] in Serum or PlasmaOrdered By: Carlitos Nguyen on 04-25-2023 Creatinine [Mass/Vol] 0.81 mg/dL 0.60-1.20 [facility] Globulin Calc (S) [Mass/Vol] Ordered By: Carlitos Nguyen on 04-25-2023 Globulin (S) [Mass/Vol] 2.6 g/dL [facility] Glucose [Mass/volume] in Ser um or PlasmaOrdered By: Carlitos Nguyen on 04-25-2023 Glucose [Mass/Vol] 84 mg/dL 70-100 [facility] No Panel InformationOrdered By: Carlitos Nguyen on 04-25-2023 Estimated GFR (CKD-EPI) > 60.0 mL/Min [facility] Creatinine Clearance (Chem N/A [facility] Potassium [Moles/volume] in Serum or PlasmaOrdered By: Carlitos Nguyen on 04-25-2023 Potassium [Moles/Vol] 4.3 mmol/L 3.5-5.1 [facility] Comment on above: Hemolysis is present at a level that could interfere with the result. Protein [Mass/volume] in Ser um or PlasmaOrdered By: Carlitos Nguyen on 04-25-2023 Protein [Mass/Vol] 7.4 g/dL 6.4-8.9 [facility] Serum or plasma albumin/glob ulin mass ratioOrdered By: Carlitos Nguyen on 04-25-2023 Albumin/Globulin [Mass ratio] 1.8 {ratio} [facility] Serum or plasma anion gap de terminationOrdered By: Carlitos Nguyen on 04-25-2023 Anion gap [Moles/Vol] 12.4 mmol/L 6.0-15.0 [facility] Serum or plasma high density lipoprotein (HDL) cholesterol measurementOrdered By: Carlitos Nguyen on 04-25-2023 Cholesterol in HDL [Mass/Vol] 55 mg/dL 23-92 [facility] Comment on above: HDL CHOL ATP-III CLA SSIFICATION Cardiovascular RiskHDL > or equal to 60 mg/dL LOWHDL < 40 mg/dL HIGH Serum or plasma total choles terol/high density lipoprotein (HDL) cholesterol mass ratOrdered By: Carlitos Nguyen on 04-25-2023 Cholesterol.total/Chol esterol in HDL [Mass ratio] 3.8 {ratio} <5.0 [facility] Sodium [Moles/volume] in Ser um or PlasmaOrdered By: Carlitos Nguyen on 04-25-2023 Sodium [Moles/Vol] 139 mmol/L 136-145 [facility] Triglyceride [Mass/volume] i n Serum or PlasmaOrdered By: Carlitos Nguyen on 04-25-2023 Triglyceride [Mass/Vol] 83 mg/dL 0-149 [facility] Comment on above: TRIG ATP III CLASSIF ICATIONTRIG less than 150 mg/dL NormalTRIG 150-199 mg/dL Borderline highTRIG 200-500 mg/dL High TRIG greater than 500 mg/dL Very highStandard traceable to the Center for Disease Conrtrol and Prevention (CDC) test method. Urea nitrogen [Mass/volume] in Serum or PlasmaOrdered By: Carlitos Nguyen on 04-25-2023 Urea nitrogen [Mass/Vol] 15 mg/dL 7-25 [facility] Tobacco Screening.on 023 Adult depression screening assessment No [facility] 320 DO Work Phone: Fall risk assessment a) No falls within the last year [facility] 320 DO Work Phone: Tobacco use status [facility] b) No [facility] DO Work Phone: Office Visit (Cardiology)on [...] in adult Healthy Weight Tips; Status:Complete; Done: [id number] SocHx: Never a smoker Tobacco Use Screening; Status:Complete; Done: [id number] Patient Instructions Please bring all medicines, vitamins, [...] she did get a second opinion in [place], and no change in medication was suggested [...] sinus sometime (more content not included)... Normal [employer] Tobacco Screening.on 022 Tobacco use status [facility] b) No -[facility] 250 DO Work Phone: Cardiovasc Arrhythmia Result son 07-31-2022 Cardiovasc Arrhythmia Results Reason For Visit MADYSON is here for the application of a Silith.IOopatch monitor. Ordering Physician: Dr. Maza Diagnosis: abn TTT, dyspnea, syncope, autonomic orthostatic hypotension [facility] equipment agreement signed. MADYSON understands monitor is to be returned on: 08/14/22 Monitor number [id number] applied. Procedure Date I received for dictation [...] MD; Aug 28 2022 10:26AM EST Normal [facility] Office Visit (Cardiology)on 07-21-2022 Follow-up visit Diagnoses/Problems [...] Dr. Chan Jiang in 1 week. ITammy, SHAWNA, am scribing for and in the presence [...] heart murmur and has been transferred to [facility] There is no family history of [...] cardiac data (more content not included)... Normal [employer] Tobacco Screening.on 022 Fall risk assessment b) One or more fall s in the last year [facility] DO Work Phone: Tobacco use status [facility] b) No [facility] DO Work Phone: Office Visit (Cardiology)on [...] Confirmed - N/A AMA Intake updated by [facility] ([facility]) on 2022-07-11 22:02 New [...] from 6 (more content not included)... Normal [employer] Tobacco Screening.on 022 Tobacco use status [facility] b) No -[facility] 250 DO Work Phone: COVID CepheidOrdered By: Daniele Pearce on 06-01-2022 SARS-CoV-2 (COVID-19) Ab IA Ql Negative Negative [facility] Comment on above: This is a duplicate [employer] Xpert Xpress CoV-2/Flu/RSV Plus RNA by RT-PCR result to be used for statistical tracking purpose only. SARS-CoV-2 (COVID-19) RNA PERFECTO+probe Ql (Unsp spec) [facility] Office Visit (Cardiology)on 05-18-2022 Follow-up visit [...] in adult Healthy Weight Tips; Status:Complete; Done: [id number] Some eating tips that can help you lose weight.; Status:Complete; Done: [id number] Dyspnea, Syncope, unspecified syncope type Urine Test; Status:Active - Retrospective By Protocol Authorization; Requested for:[id number]; Palpitation Start: Atenolol 25 MG Oral Tablet; TAKE 1 TABLET DAILY Syncope, unspecified syncope type Tilt Table; Status:Hold For - Scheduling,Retrospective By Protocol Authorization; Requested for:[id number]; Patient Instructions Please bring all medicines, vitamins, [...] walking to the bathroom. She will see medical billing specialist in the near future, she had her pulmonary function test which I reviewed, there is concern for chronic asthma, but no reactive airway disease. She has 3 dogs that she had, and 1 cat at home. She is not orthostatic. She is feeling palpitations quite a bit. Results of the pulmonary function test and a Micah of [employer] was reviewed. Also reviewed stress test and [...] 3.5 c (more content not included)... Normal [employer] Tobacco Screening.on 022 Tobacco use status [facility] b) No [facility] y 250 DO Work Phone: No Panel Informationon 05-03 -[facility] 250 DO Work Phone: [facility] 250 DO Work Phone: Cardiovasc Arrhythmia Result son 03-28-2022 Cardiovasc Arrhythmia Results Reason For Visit Event Monitor: MADYSON is here for the application of a 30 day event monitor in office., Diagnosis: Palps, Dyspnea, Chest pain Ordering Physician: Enrollment sent to: [employer] Monitor number [id number] applied. Holter monitor printed and placed on [...] (R00.2) Future Appointments Date/TimeProviderSpecialt ySite 05/03/2022 10:00 AMTraboMaría Elena sanz, JUMAardiologySurgery [facility] 05/18/2022 09:15 Melodie Sylvester MDCardiology703 [facility] [address] Carlos 250 DO Signatures Electronically signed by : Melodie Alcaraz MD; May 01 2022 7:56PM EST (Author) [facility] and C hemistry - challengeOrdered By: Melodie Alcaraz on 03-24-2022 Natriuretic peptide B (Bld) [Mass/Vol] 27.0 pg/mL 5-100 [facility] No Panel InformationOrdered By: Melodie Alcaraz on 03-24-2022 D-Dimer Quantitative (PE/DVT) < 200 ng/mL 0-243 [facility] Comment on above: The reference range [...] No Panel Informationon 03-24 0.70\S\0.70 Normal 0.45-5.33 -[facility] y 250 DO Work Phone: Comment on above: PERFORMED BY:[facility] [place], [place] [phone] MEDICAL DIRECTOROFE ELLIS M.D. 0.99\S\0.99 Normal 0.61-1.12 -[facility] Touch[facility]usk y 250 DO Work Phone: 27.0\S\27.0 Normal 5-100 [facility] 250 DO Work Phone: Comment on above: PERFORMED BY:[facility] [place] [id number] MEDICAL DIRECTOROFE ELLIS M.D. < 200 Normal 0-243 [facility] 250 DO Work Phone: Comment [...] in hospitalized patients due to co-morbid conditions.PERFORMED BY:[facility] [address] [place] [phone] MEDICAL DIRECTOROFE ELLIS M.D. TSH DL <= 0.005 mIU/L QnOrde red By: Melodie Alcaraz on 03-24-2022 TSH Qn 0.70 m[IU]/L 0.45-5.33 [facility] Thyroxine (T4) free [Mass/vo lume] in Serum or PlasmaOrdered By: Melodie Alacraz on 03-24-2022 Free T4 [Mass/Vol] 0.99 ng/dL 0.61-1.12 [facility] Office Visit (Cardiology)on 03-23-2022 Follow-up visit [...] All medical record entries made by the Cierraibe were at my direction and personally dictated [...] [facility], and has history of heart [...] screening assessment No [facility] 250 DO Work Phone: Fall risk assessment c) Not medically indicated [facility] 250 DO Work Phone: Tobacco use status [facility] b) No [facility] 250 DO Work Phone: ARMANI BY IFA WITH REFLEXon Nuclear Ab IF (S) [Titer] Negative Negative [facility] CCP ANTIBODY IGGon 2 Cyclic citrullinated peptide IgG Qn <15 <20 Units [facility] Cyclic citrullinated peptide IgG Qnon 01-26-2022 CCP Antibody IgG Qualitative Negative Negative [facility] Nuclear Ab IA Ql (S)on 01-26 ARMANI by EIA, Qual Negative Negative [facility] ARMANI BY IFA WITH REFLEXon Nuclear Ab IF (S) [Titer] Negative Normal Negative [facility] Comment on above: Order Comment: Specyelitza oseguera Type: BLOOD SPECIMEN Ordering Facility: [facility] Address: [address] [place] [address] Result Comment: Anti -nuclear antibody test is used as an aid in diagnosis of systemic autoimmune diseases. Where positive and clinically warranted, follow-up using disease-specific testing is recommended. Low positive titers are not uncommon with advanced age, certain chronic infections, and malignancies among others. Test methodology: Indirect fluorescence immunoassay (IFA) using HEp-2 cells. Performed By: #### A NAIFR #### [facility] CLIA [id number] [address] [place] [address] [place] [address] [place] C-REACTIVE PROTEIN (CRP)on 0 01-25-2022 CRP [Mass/Vol] 0.4 mg/dL <0.9 mg/dL [facility] C1 ESTERASE INHIBITon 2021 C1 ESTERASE INHIBIT 26 mg/dL Normal 21-38 [facility] Comment on above: Order Comment: Horacioi ana rosa Type: BLOOD SPECIMEN Ordering Facility: [facility] Address: [address] [place], [place] [id number] Result Comment: Perf ormed By: [facility] [address] [place] [address] Slip Cover Sewer: Brittni Moscoso MD Performed By: #### 1 6570-4, 47158-3, 08779-5, 50562-4, 64329-8, 08979-7, 64401-7, 22020-8 #### [facility] CLIA [id number] [address] [place] [address] [place] C2 COMPLEMENT BLDon 01-26-20 22 C2 COMPLEMENT 2.4 mg/dL Normal 1.6-4.0 [facility] Comment on above: Order Comment: Jose Carlos oseguera Type: BLOOD SPECIMEN Ordering Facility: [facility] Address: [address] [place] [address] Result Comment: INTE RPRETIVE INFORMATION: Complement Component 2 Decreased C2 levels may be associated with increased susceptibility to infection (especially pneumococcal infections), systemic lupus erythematosus-like disease, rashes, arthritis and nephritis, and with C1-Esterase deficiency. Increased C2 levels are associated with the acute phase response. This test was developed and its performance characteristics determined by [facility]. It has not been cleared or approved by the US Food and Drug Administration. This test was performed in a CLIA certified laboratory and is intended for clinical purposes. Performed By: [facility] [address] [place] [address] Slip Cover Sewer: Brittni Moscoso MD Performed By: #### 1 6570-4, 45857-4, 93437-5, 43316-9, 26421-2, 63784-8, 29036-1, 57552-8 #### [facility] CLIA [id number] [address] [place] [address] [place] C3 COMPLEMENT BLDon 01-26-20 22 Complement C3 [Mass/Vol] 130 mg/dL 86 - 166 mg/dL [facility] C3 SerPl-mCncon 01-25-2022 Complement C3 [Mass/Vol] 130 mg/dL Normal 86-166 [facility] Comment on above: Order Comment: Jose Carlos men Type: BLOOD SPECIMEN Ordering Facility: [facility] Address: [address] [place], [place] [id number] Performed By: #### 1 6570-4, 40486-7, 66312-3, 17972-1, 74070-0, 60147-2, 41033-1, 49601-5 #### [facility] CLIA [id number] [address] [place] [address] [place] C4 COMPLEMENT BLDon 01-26-20 Complement C4 [Mass/Vol] 30 mg/dL 13 - 46 mg/dL [facility] C4 SerPl-mCncon 01-25-2022 Complement C4 [Mass/Vol] 30 mg/dL Normal 13-46 [facility] Comment on above: Order Comment: Speci men Type: BLOOD SPECIMEN Ordering Facility: [facility] Address: [address] [place] [address] Performed By: #### 1 6570-4, 58171-2, 17186-4, 92383-1, 04761-6, 54774-6, 28044-7, 76200-1 #### [facility] CLIA [id number] [address] [place] [address] [place] CBC panel Auto (Bld)on 01-25 Erythrocyte distribution width (RBC) [Ratio] 12.1 % Normal 11.5-15.0 [facility] Comment on above: Order Comment: Speci men Type: BLOOD SPECIMEN Ordering Facility: [facility] Address: [address] [place], [place] [id number] Performed By: #### 1 6570-4, 20075-8, 99713-5, 05761-5, 15030-6, 99170-6, 06216-6, 66817-0 #### [facility] CLIA [id number] [address] [place] [address] [place] Hematocrit (Bld) [Volume fraction] 42.6 % Normal 36.0-46.0 [facility] Comment on above: Order Comment: Speci men Type: BLOOD SPECIMEN Ordering Facility: [facility] Address: [address] [place] [address] Performed By: #### 1 6570-4, 82832-4, 32250-9, 47578-9, 86178-3, 99438-3, 09103-4, 74930-7 #### [facility] CLIA [id number] [address] [place] [address] [place] Hemoglobin (Bld) [Mass/Vol] 13.8 g/dL Normal 11.5-15.5 [facility] Comment on above: Order Comment: Speci men Type: BLOOD SPECIMEN Ordering Facility: [facility] Address: [address] [place] [address] Performed By: #### 1 6570-4, 14304-1, 89180-7, 95674-2, 56333-9, 89737-1, 39330-5, 40059-6 #### [facility] CLIA [id number] [address] [place] [address] [place] MCH (RBC) [Entitic mass] 28.3 pg Normal 26.0-34.0 [facility] Comment on above: Order Comment: Speci men Type: BLOOD SPECIMEN Ordering Facility: [facility] Address: [address] [place] [address] Performed By: #### 1 6570-4, 55916-8, 04364-2, 94445-5, 38262-6, 19630-9, 22187-0, 02575-2 #### [facility] CLIA [id number] [address] [place] [address] [place] MCHC (RBC) [Mass/Vol] 32.4 g/dL Normal 30.5-36.0 [facility] Comment on above: Order Comment: Speci men Type: BLOOD SPECIMEN Ordering Facility: [facility] Address: [address] [place] [address] Performed By: #### 1 6570-4, 38341-7, 29137-4, 82673-8, 17856-2, 48882-1, 20675-4, 60324-5 #### [facility] CLIA [id number] [address] [place] [address] [place] MCV (RBC) [Entitic vol] 87.3 fL Normal 80.0-100.0 [facility] Comment on above: Order Comment: Speci men Type: BLOOD SPECIMEN Ordering Facility: [facility] Address: [address] [place] [address] Performed By: #### 1 6570-4, 94823-0, 27427-8, 32891-6, 13813-8, 01236-1, 49488-8, 75067-9 #### [facility] CLIA [id number] [address] [place] [address] [place] Nucleated RBC (Bld) [#/Vol] 10*3/uL Normal <0.01 [facility] Comment on above: Order Comment: Speci men Type: BLOOD SPECIMEN Ordering Facility: [facility] Address: [address] [place], [place] [id number] Performed By: #### 1 6570-4, 51628-0, 83014-9, 22391-5, 07180-9, 83700-0, 70164-0, 23207-5 #### [facility] CLIA [id number] [address] [place] [address] [place] Platelet mean volume (Bld) [Entitic vol] 10.3 fL Normal 9.0-12.7 [facility] Comment on above: Order Comment: Speci men Type: BLOOD SPECIMEN Ordering Facility: [facility] Address: [address] [place], [place] [id number] Performed By: #### 1 6570-4, 63794-6, 58328-6, 44801-6, 18114-6, 67491-8, 32719-9, 24780-0 #### [facility] CLIA [id number] [address] [place] [address] [place] Platelets (Bld) [#/Vol] 213 10*3/uL Normal 150-400 [facility] Comment on above: Order Comment: Speci men Type: BLOOD SPECIMEN Ordering Facility: [facility] Address: [address] [place] [address] Performed By: #### 1 6570-4, 22335-5, 67164-4, 08741-3, 88518-5, 98124-2, 36186-4, 46214-5 #### [facility] CLIA [id number] [address] [place] [address] [place] RBC (Bld) [#/Vol] 4.88 10*6/uL Normal 3.90-5.20 [facility] Comment on above: Order Comment: Speci men Type: BLOOD SPECIMEN Ordering Facility: [facility] Address: [address] [place] [address] Performed By: #### 1 6570-4, 98874-1, 48828-3, 71096-9, 59550-8, 94078-5, 71744-5, 30447-0 #### [facility] CLIA [id number] [address] [place] [address] [place] WBC (Bld) [#/Vol] 4.77 10*3/uL Normal 3.70-11.00 [facility] Comment on above: Order Comment: Speci men Type: BLOOD SPECIMEN Ordering Facility: [facility] Address: [address] [place] [address] Performed By: #### 1 6570-4, 69394-0, 93582-2, 19650-9, 48832-5, 17581-8, 86782-9, 70985-8 #### [facility] CLIA [id number] [address] [place] [address] [place] Erythrocyte distribution width (RBC) [Ratio] 12.1 % 11.5 - 15.0 % [facility] Hematocrit (Bld) [Volume fraction] 42.6 % 36.0 - 46.0 % [facility] Hemoglobin (Bld) [Mass/Vol] 13.8 g/dL 11.5 - 15.5 g/dL [facility] MCH (RBC) [Entitic mass] 28.3 pg 26.0 - 34.0 pg [facility] MCHC (RBC) [Mass/Vol] 32.4 g/dL 30.5 - 36.0 g/dL [facility] MCV (RBC) [Entitic vol] 87.3 fL 80.0 - 100.0 fL [facility] Nucleated RBC (Bld) [#/Vol] 10*3/uL <0.01 k/uL [facility] Platelet mean volume (Bld) [Entitic vol] 10.3 fL 9.0 - 12.7 fL [facility] Platelets (Bld) [#/Vol] 213 10*3/uL 150 - 400 k/uL [facility] RBC (Bld) [#/Vol] 4.88 10*6/uL 3.90 - 5.20 m/uL [facility] WBC (Bld) [#/Vol] 4.77 10*3/uL 3.70 - 11.00 k/uL [facility] CRP [Mass/Vol] 0.4 mg/dL Normal <0.9 [facility] Comment on above: Order Comment: Jose Carlos oseguera Type: BLOOD SPECIMEN Ordering Facility: [facility] Address: [address] [place], [place] [id number] Performed By: #### 1 6570-4, 59355-8, 10444-3, 91330-0, 83370-2, 60202-4, 13210-5, 83086-1 #### [facility] CLIA [id number] [address] [place] [address] [place] Centromere Ab IF Ql (S)on Centromere Ab Qn (S) <0.2 Normal <1.0 [facility] Comment on above: Order Comment: Jose Carlos oseguera Type: BLOOD SPECIMEN Ordering Facility: [facility] Address: [address] [place] [address] Result Comment: Anti -centromere antibody is used as in aid in diagnosis of systemic sclerosis. Clinical correlation is required. Test Methodology: Multiplex flow immunoassay. Performed By: #### 1 6570-4, 37245-8, 79241-9, 84096-3, 72025-7, 67719-5, 60881-2, 17558-5 #### [facility] CLIA [id number] [address] [place] [address] [place] CENTROMERE AB QUAL Negative Normal Negative [facility] Comment on above: Order Comment: Speci men Type: BLOOD SPECIMEN Ordering Facility: [facility] Address: [address] [place] [address] Performed By: #### 1 6570-4, 34413-9, 32610-9, 99148-0, 36758-3, 52329-5, 06378-7, 21299-9 #### [facility] CLIA [id number] [address] [place] [address] [place] Chromatin Ab Qnon 01-25-2022 CHROMATIN AB QUAL Negative Normal Negative [facility] Comment on above: Order Comment: Speci men Type: BLOOD SPECIMEN Ordering Facility: [facility] Address: [address] [place] [address] Performed By: #### 1 6570-4, 43465-1, 81777-0, 37577-3, 42305-3, 78858-2, 18624-6, 44761-8 #### [facility] CLIA [id number] [address] [place] [address] [place] Chromatin Ab SerPl-aCncon Chromatin Ab Qn <0.2 Normal <1.0 [facility] Comment on above: Order Comment: Speci men Type: BLOOD SPECIMEN Ordering Facility: [facility] Address: [address] [place] [address] Result Comment: Test Methodology: Multiplex flow immunoassay. Performed By: #### 1 6570-4, 72498-7, 88173-3, 98832-1, 58950-6, 38100-1, 12499-1, 20839-1 #### [facility] CLIA [id number] [address] [place], [place] [address] [address] OF [facility] Comprehensive metabolic 2000 panelon 01-25-2022 Albumin [Mass/Vol] 4.5 g/dL 3.9 - 4.9 g/dL [facility] ALP [Catalytic activity/Vol] 65 U/L 34 - 123 U/L [facility] ALT [Catalytic activity/Vol] 14 U/L 7 - 38 U/L [facility] Anion gap [Moles/Vol] 11 mmol/L 9 - 18 mmol/L [facility] AST [Catalytic activity/Vol] 14 U/L 13 - 35 U/L [facility] Bilirubin [Mass/Vol] 0.3 mg/dL 0.2 - 1 .3 mg/dL [facility] Calcium [Mass/Vol] 9.5 mg/dL 8.5 - 10. 2 mg/dL [facility] Chloride [Moles/Vol] 105 mmol/L 97 - 10 5 mmol/L [facility] CO2 [Moles/Vol] 26 mmol/L 22 - 30 mmol/L [facility] Creatinine [Mass/Vol] 0.71 mg/dL 0.58 - 0.96 mg/dL [facility] Estimated Glomerular Filtration Rate 125 mL/min/1.73m >=60 mL/min/1.7 3m [facility] Glucose [Mass/Vol] 94 mg/dL 74 - 99 mg/dL [facility] Potassium [Moles/Vol] 4.6 mmol/L 3.7 - 5.1 mmol/L [facility] Protein [Mass/Vol] 7.2 g/dL 6.3 - 8.0 g/dL [facility] Sodium [Moles/Vol] 142 mmol/L 136 - 144 mmol/L [facility] Urea nitrogen [Mass/Vol] 8 mg/dL 7 - 21 mg/dL [facility] Albumin [Mass/Vol] 4.5 g/dL Normal 3.9-4.9 [facility] Comment on above: Order Comment: Speci men Type: BLOOD SPECIMEN [facility]ing Facility: [facility] Address: [address] [place], [place] [id number] Performed By: #### 1 6570-4, 85246-4, 54557-9, 40120-2, 33530-5, 18175-6, 14549-8, 08197-8 #### [facility] CLIA [id number] [address] [place] [address] [place] ALP [Catalytic activity/Vol] 65 U/L Normal 34-123 [facility] Comment on above: Order Comment: Speci men Type: BLOOD SPECIMEN Ordering Facility: [facility] Address: [address] [place] [address] Performed By: #### 1 6570-4, 96097-4, 17095-0, 60538-5, 53105-3, 52651-5, 17539-9, 22959-1 #### [facility] CLIA [id number] [address] [place] [address] [place] ALT [Catalytic activity/Vol] 14 U/L Normal 7-38 [facility] Comment on above: Order Comment: Speci men Type: BLOOD SPECIMEN Ordering Facility: [facility] Address: [address] [place] [address] Performed By: #### 1 6570-4, 59854-4, 92804-3, 07548-6, 26203-1, 62182-0, 36091-7, 21982-0 #### [facility] CLIA [id number] [address] [place] [address] [place] Anion gap [Moles/Vol] 11 mmol/L Normal 9-18 [facility] Comment on above: Order Comment: Speci men Type: BLOOD SPECIMEN [facility]ing Facility: [facility] Address: [address] [place] [address] Performed By: #### 1 6570-4, 95476-0, 45418-7, 79096-3, 59674-5, 12477-6, 50770-5, 59038-2 #### [facility] CLIA [id number] [address] [place] [address] [place] AST [Catalytic activity/Vol] 14 U/L Normal 13-35 [facility] Comment on above: Order Comment: Speci men Type: BLOOD SPECIMEN Ordering Facility: [facility] [facility] Address: [address] [place] [address] Performed By: #### 1 6570-4, 59942-6, 64183-3, 78934-9, 30741-2, 00580-8, 51989-6, 14165-8 #### [facility] CLIA [id number] [address] [place] [address] [place] Bilirubin [Mass/Vol] 0.3 mg/dL Normal 0.2-1.3 [facility] Comment on above: Order Comment: Speci men Type: BLOOD SPECIMEN Ordering Facility: [facility] Address: [address] [place] [address] Performed By: #### 1 6570-4, 01689-3, 37529-8, 68037-1, 67047-6, 68733-2, 82299-9, 96888-6 #### [facility] CLIA [id number] [address] [place] [address] [place] Calcium [Mass/Vol] 9.5 mg/dL Normal 8.5-10.2 [facility] Comment on above: Order Comment: Speci men Type: BLOOD SPECIMEN [facility]ing Facility: [facility] Address: [address] [place] [address] Performed By: #### 1 6570-4, 52211-6, 61095-9, 70569-4, 83360-6, 87166-1, 36066-9, 04869-6 #### [facility] CLIA [id number] [address] [place] [address] [place] Chloride [Moles/Vol] 105 mmol/L Normal 97-105 [facility] Comment on above: Order Comment: Speci men Type: BLOOD SPECIMEN [facility]ing Facility: [facility] Address: [address] [place] [address] Performed By: #### 1 6570-4, 95105-4, 83223-5, 64826-1, 98668-7, 49821-2, 63686-4, 63763-3 #### [facility] CLIA [id number] [address] [place] [address] [place] CO2 [Moles/Vol] 26 mmol/L Normal 22-30 [facility] Comment on above: Order Comment: Speci men Type: BLOOD SPECIMEN [facility]ing Facility: [facility] Address: [address] [place] [address] Performed By: #### 1 6570-4, 21284-5, 75364-4, 91257-3, 98794-8, 55774-4, 24742-8, 87283-3 #### [facility] CLIA [id number] [address] [place] [address] [place] Creatinine [Mass/Vol] 0.71 mg/dL Normal 0.58-0.96 [facility] Comment on above: Order Comment: Speci men Type: BLOOD SPECIMEN [facility] Facility: [facility] Address: [address] [place] [address] Performed By: #### 1 6570-4, 61844-1, 80570-8, 51680-0, 07443-6, 21614-0, 53715-4, 68602-1 #### [facility] CLIA [id number] [address] [place] [address] [place] ESTIMATED GLOMERULAR FILTRATION RATE 125 mL/min/1.73m??? Normal >=60 [facility] Comment on above: Order Comment: Speci men Type: BLOOD SPECIMEN [facility]ing Facility: [facility] Address: [address] [place] [address] Result Comment: Francesca mated Glomerular Filtration Rate [...] actual GFR. Performed By: #### 1 6570-4, 57302-3, 62353-7, 70861-5, 79826-9, 26305-0, 18890-7, 87990-8 #### [facility] CLIA [id number] [address] [place], [place] [address] [place] Glucose [Mass/Vol] 94 mg/dL Normal 74-99 [facility] Comment on above: Order Comment: Jose Carlos oseguera Type: BLOOD SPECIMEN Ordering Facility: [facility] Address: [address] [place] [phone] Result Comment: The [place] [employer] (ADA) provides guidance for cutoff [...] Standards of Medical Care in Diabetes 2016, [place] [employer]. Diabetes Care. 2016.39(Suppl 1). Performed By: #### 1 6570-4, 08641-7, 77857-8, 43550-6, 09622-2, 53703-6, 16010-2, 84856-5 #### [facility] CLIA [id number] [address] [place], [place] [address] [place] Potassium [Moles/Vol] 4.6 mmol/L Normal 3.7-5.1 [facility] Comment on above: Order Comment: Jose Carlos oseguera Type: BLOOD SPECIMEN Ordering Facility: [facility] Address: [address] [place] [address] Performed By: #### 1 6570-4, 92530-9, 21332-6, 84509-2, 78806-0, 35975-7, 12988-2, 28891-9 #### [facility] CLIA [id number] [address] [place] [address] [place] Protein [Mass/Vol] 7.2 g/dL Normal 6.3-8.0 [facility] Comment on above: Order Comment: Speci men Type: BLOOD SPECIMEN [facility]ing Facility: [facility] Address: [address] [place] [address] Performed By: #### 1 6570-4, 37425-5, 85658-5, 35818-6, 12780-3, 75835-8, 64231-3, 75950-8 #### [facility] CLIA [id number] [address] [place] [address] [place] Sodium [Moles/Vol] 142 mmol/L Normal 136-144 [facility] Comment on above: Order Comment: Speci men Type: BLOOD SPECIMEN [facility]ing Facility: [facility] Address: [address] [place] [address] Performed By: #### 1 6570-4, 20873-5, 04640-9, 93927-1, 26047-3, 12738-9, 89355-4, 20491-3 #### [facility] CLIA [id number] [address] [place] [address] [place] Urea nitrogen [Mass/Vol] 8 mg/dL Normal 7-21 [facility] Comment on above: Order Comment: Speci men Type: BLOOD SPECIMEN [facility]ing Facility: [facility] Address: [address] [place] [address] Performed By: #### 1 6570-4, 12596-4, 12492-9, 10807-3, 44856-6, 46142-7, 37543-8, 79413-0 #### [facility] CLIA [id number] [address] [place] [address] [place] Cyclic citrullinated peptide IgG Qnon 01-25-2022 [facility] ANTIBODY IGG QUALITATIVE Negative Normal Negative [facility] Comment on above: Order Comment: Speci men Type: BLOOD SPECIMEN [facility]ing Facility: [facility] Address: [address] [place] [address] Performed By: #### 1 6570-4, 41504-1, 35733-5, 08263-3, 72889-3, 86411-2, 25740-2, 25116-1 #### [facility] CLIA [id number] [address] [place] [address] [place] JASON Jo1 Ab Ser-aCncon 2021 Yuly-1 extractable nuclear Ab Qn (S) <0.2 Normal <1.0 [facility] Comment on above: Order Comment: Speci men Type: BLOOD SPECIMEN [facility]ing Facility: [facility] Address: [address] [place] [address] Performed By: #### 1 6570-4, 46037-7, 85119-4, 96719-3, 94209-4, 81508-2, 74418-2, 52330-9 #### [facility] CLIA [id number] [address] [place] [address] [place] JASON ENERGY EFFICIENT SITE MANAGER Ab Ser-aCncon 2021 Ribonucleoprotein extractable nuclear Ab Qn (S) <0.2 Normal <1.0 [facility] Comment on above: Order Comment: Speci men Type: BLOOD SPECIMEN [facility]ing Facility: [facility] Address: [address] [place] [address] Performed By: #### 1 6570-4, 73266-3, 56037-4, 63296-6, 12659-8, 16679-5, 79221-6, 99411-9 #### [facility] CLIA [id number] [address] [place] [address] [place] JASON SM IgG Ser-aCncon 2021 Cota extractable nuclear IgG Qn (S) <0.2 Normal <1.0 [facility] Comment on above: Order Comment: Speci men Type: BLOOD SPECIMEN [facility]ing Facility: [facility] Address: [address] [place] [address] Performed By: #### 1 6570-4, 34467-1, 08357-9, 00669-7, 72701-6, 67162-6, 78343-5, 59519-8 #### [facility] CLIA [id number] [address] [place] [address] J[place]ON SS-A Ab Ser-aCncon 01-25 Sjogrens syndrome-A extractable nuclear Ab Qn (S) <0.2 Normal <1.0 [facility] Comment on above: Order Comment: Speci men Type: BLOOD SPECIMEN [facility]ing Facility: [facility] Address: [address] [place] [address] Result Comment: Test Methodology: Multiplex flow immunoassay. Performed By: #### 1 6570-4, 99910-7, 73374-3, 36050-9, 81442-6, 92345-4, 41653-4, 16213-4 #### [facility] CLIA [id number] [address] [place] [address] JASON SS-B Ab Ser-aCncon 01-25 Sjogrens syndrome-B extractable nuclear Ab Qn (S) <0.2 Normal <1.0 [facility] Comment on above: Order Comment: Speci men Type: BLOOD SPECIMEN [facility]ing Facility: [facility] Address: [address] [place] [address] Result Comment: Anti -SSB (anti-La) antibody is used as an aid in diagnosis of a variety of systemic autoimmune diseases, especially for Sjogren's syndrome and systemic lupus erythematosus. Clinical correlation is required. Test Methodology: Multiplex flow immunoassay. Performed By: #### 1 6570-4, 38358-2, 34676-8, 36704-1, 48981-4, 33266-7, 33797-9, 38103-2 #### [facility] CLIA [id number] [address] [place] [address] [place] ESR Westergren method (Bld) [Velocity]on 01-25-2022 ESR (Bld) [Velocity] 2 mm/h 0 - 20 mm/hr [facility] ESR (Bld) [Velocity] 2 mm/h Normal 0-20 [facility] Comment on above: Order Comment: [place] Carlos oseguera Type: BLOOD SPECIMEN [facility]ing Facility: [facility] Address: [address] [place] [address] Performed By: #### 1 6570-4, 23474-2, 58187-9, 73902-9, 30126-3, 90840-8, 91977-8, 47954-2 #### [facility] CLIA [id number] [address] [place] [address] [place] HBV core Ab Ser Qlon 022 HBV core Ab Ql (S) Negative Normal Negative [facility] Comment on above: Order Comment: [place] Carlos oseguera Type: BLOOD SPECIMEN [facility]ing Facility: [facility] Address: [address] [place] [address] Result Comment: No e vidence of current or past infection with Hepatitis B virus. Should recent infection be suspected, repeat testing may be considered 3-4 weeks after this draw. Performed By: #### 1 6570-4, 29820-0, 76724-3, 56173-1, 21105-7, 98914-9, 11972-0, 72065-7 #### [facility] CLIA [id number] [address] [place] [address] [place] HBV surface Ab IA Ql (S)on 0 01-25-2022 HBV surface Ag Ql (S) Negative Normal Negative [facility] Comment on above: Order Comment: Jose Carlos oseguera Type: BLOOD SPECIMEN [facility]ing Facility: [facility] Address: [address] [place] [address] Performed By: #### 1 6570-4, 67487-7, 18265-3, 19062-6, 67597-7, 73011-4, 31357-2, 41306-4 #### [facility] CLIA [id number] [address] [place] [address] [place] HBV surface Ab Ser Qlon 05- HBV surface Ab Ql (S) Negative Normal Negative [facility] Comment on above: Order Comment: [place] Carlos oseguera Type: BLOOD SPECIMEN [facility]ing Facility: [facility] Address: [address] [place] [address] Result Comment: No e vidence of current or past infection with Hepatitis B virus. Should recent infection be suspected, repeat testing may be considered 3-4 weeks after this draw. Performed By: #### 1 6570-4, 13698-3, 57860-8, 35291-2, 42471-0, 56990-8, 66840-2, 90959-5 #### [facility] CLIA [id number] [address] [place] [address] [place] HCV Ab Ser Qlon 01-25-2022 HCV Ab Ql (S) Negative Normal Negative [facility] Comment on above: Order Comment: [place] Carlos oseguera Type: BLOOD SPECIMEN [facility]ing Facility: [facility] Address: [address] [place] [address] Result Comment: The result suggests no evidence of active infection with Hepatitis C virus. Should recent infection be suspected, repeat testing may be considered 4-6 weeks after this draw. Performed By: #### 1 6570-4, 63871-1, 06134-0, 91543-9, 94037-3, 08388-7, 34331-7, 12372-9 #### [facility] CLIA [id number] [address] [place] [address] [place] Yuly-1 extractable nuclear Ab Qn (S)on 01-25-2022 YULY 1 ANTIBODY QUAL Negative Normal Negative [facility] Comment on above: Order Comment: [place] Carlos oseguera Type: BLOOD SPECIMEN [facility]ing Facility: [facility] Address: [address] [place] [address] Result Comment: Anti -YULY-1 antibody is used as an aid in diagnosis of polymyositis and dermatomyositis especially with pulmonary involvement. A negative result cannot rule out polymyositis or dermatomyositis. Clinical correlation is required. Test Methodology: Multiplex flow immunoassay. Performed By: #### 1 6570-4, 33714-8, 97634-6, 61861-7, 76095-9, 15690-5, 06070-7, 01973-2 #### [facility] CLIA [id number] [address] [place] [address] [place] Nuclear Ab IA Ql (S)on 01-25 ARMANI BY EIA, QUAL Negative Normal Negative [facility] Comment on above: Order Comment: Speci men Type: BLOOD SPECIMEN [facility]ing Facility: [facility] Address: [address] [place] [address] Result Comment: The qualitative antinuclear antibody screen test performed using enzyme immunoassay including the following antigens: dsDNA, histones, SS-A, SS-B, Sm, Sm/ENERGY EFFICIENT SITE MANAGER, Scl-70, Yuly-1, and centromeric antigens. Performed By: #### 1 6570-4, 65566-1, 01435-4, 96766-2, 65500-7, 31291-6, 15116-7, 21520-6 #### [facility] CLIA [id number] [address] [place] [address] [place] RHEUMATOID FACTOR BLon 01-25 Rheumatoid factor Qn [IU]/mL <16 IU/mL [facility] Rheumatoid factor Qn [IU]/mL Normal <16 [facility] Comment on above: Order Comment: Speci men Type: BLOOD SPECIMEN [facility]ing Facility: [facility] Address: [address] [place], [place] [id number] Performed By: #### 1 6570-4, 52390-4, 08955-6, 41176-0, 60761-2, 04689-6, 63472-9, 14761-6 #### [facility] CLIA [id number] [address] [place] [address] [place] Ribonucleoprotein extractabl e nuclear Ab Qn (S)on 01-25-2022 ANTI-ENERGY EFFICIENT SITE MANAGER QUAL Negative Normal Negative [facility] Comment on above: Order Comment: [facility] Type: BLOOD SPECIMEN [facility]ing Facility: [facility] Address: [address] [place] [address] Performed By: #### 1 6570-4, 83597-1, 31170-6, 50569-6, 79397-2, 32585-0, 34656-4, 46969-3 #### [facility] CLIA [id number] [address] [place] [address] [place] RIBOSOMAL ENERGY EFFICIENT SITE MANAGER QUAL Negative Normal Negative [facility] Comment on above: Order Comment: [facility] Type: BLOOD SPECIMEN [facility]ing Facility: [facility] Address: [address] [place] [address] Result Comment: Anti -Ribosomal RNA (Ribosomal P) antibody is used as an aid in diagnosis of systemic autoimmune diseases especially systemic lupus erythematosus and mixed connective tissue disease. Cross-reactivity with Anti-cota antibody is not uncommon. Clinical correlation is required. Test Methodology: Multiplex flow immunoassay. Performed By: #### 1 6570-4, 55850-9, 80807-7, 40034-5, 28517-9, 45656-5, 54308-0, 17496-0 #### [facility] CLIA [id number] [address] [place] [address] [place] SCL-70 extractable nuclear I gG IA Qn (S)on 01-25-2022 SCLERODERMA AB QUAL Negative Normal Negative [facility] Comment on above: Order Comment: [facility] Type: BLOOD SPECIMEN [facility]ing Facility: [facility] Address: [address] [place], [place] [id number] Performed By: #### 1 6570-4, 96477-0, 38921-5, 94523-1, 42878-3, 92196-3, 77050-4, 10398-2 #### [facility] CLIA [id number] [address] [place] [address] [place] SCLERODERMA IGG AB <0.2 Normal <1.0 [facility] Comment on above: Order Comment: Speci men Type: BLOOD SPECIMEN [facility]ing Facility: [facility] Address: [address] [place] [address] Result Comment: Scl- 70/Scleroderma antibody test is used as an aid in diagnosis of systemic sclerosis especially the diffuse cutaneous form. A negative result cannot rule out systemic sclerosis. The final interpretation should consider clinical picture and other test results such as anti-centromere antibody. Test Methodology: Multiplex flow immunoassay. Performed By: #### 1 6570-4, 38046-1, 72670-1, 29274-4, 81025-8, 17438-7, 48006-6, 60138-9 #### [facility] CLIA [id number] [address] [place] [address] [place] Sjogrens syndrome-A extracta ble nuclear Ab Qn (S)on 01-25-2022 SSA ANTIBODY QUAL Negative Normal Negative [facility] Comment on above: Order Comment: Speci men Type: BLOOD SPECIMEN [facility]ing Facility: [facility] Address: [address] [place] [address] Performed By: #### 1 6570-4, 69383-7, 82847-2, 82209-6, 30721-4, 18287-1, 20849-0, 91238-5 #### [facility] CLIA [id number] [address] [place] [address] [place] Sjogrens syndrome-B extracta ble nuclear Ab Qn (S)on 01-25-2022 SSB ANTIBODY QUAL Negative Normal Negative [facility] Comment on above: Order Comment: Speci men Type: BLOOD SPECIMEN Ordering Facility: [facility] Address: [address] [place], [place] [id number] Performed By: #### 1 6570-4, 60903-7, 56492-1, 66969-3, 51227-0, 47164-7, 29057-6, 34409-9 #### [facility] CLIA [id number] [address] [place] [address] [place] Cota extractable nuclear Ig G Qn (S)on 01-25-2022 SM ANTIBODY QUAL Negative Normal Negative [facility] Comment on above: Order Comment: [place] Carlos oseguera Type: BLOOD SPECIMEN Ordering Facility: [facility] Address: [address] [place] [phone] Result Comment: Anti -Sm (Cota) antibody is used as an aid in diagnosis of systemic lupus erythematosus and its presence is associated with renal disease. A negative result cannot rule out systemic lupus erythematosus. Clinical correlation is required. Test Methodology: Multiplex flow immunoassay. Performed By: #### 1 6570-4, 17381-0, 65732-8, 94102-9, 48365-5, 75927-2, 81038-5, 65750-9 #### [facility] CLIA [id number] [address] [place] [address] [place] cCP IgG SerPl-aCncon 022 Cyclic citrullinated peptide IgG Qn <15 Normal <20 [facility] Comment on above: Order Comment: Jose Carlos oseguera Type: BLOOD SPECIMEN [facility]ing Facility: [facility] Address: [address] [place] [phone] Performed By: #### 1 6570-4, 76334-6, 19203-5, 47247-9, 23397-2, 59154-3, 11584-1, 51386-9 #### [facility] CLIA [id number] [address] [place] [address] [place] XR ankle LT min 3V*on 2021 XR ankle LT min 3V* [facility] [employer] Other XR ankle LT min 3V* [facility] [employer] Other XR ankle LT min 3V* [address] [place] [address] [employer] Other XR ankle LT min 3V* [place] [address] [facility] [employer] Other XR ankle LT min 3V* [facility] [employer] Other XR ankle LT min 3V* Signed [employer] Other XR ankle LT min 3V* Patient: Madyson Schmid MR#: [id number] [employer] Other XR ankle LT min 3V* : 2000 Acct:[id number] [employer] Other XR ankle LT min 3V* Age/Sex: 20 / F ADM Date: 10/10/21 [employer] Other XR ankle LT min 3V* Loc: [facility] Room: pe: REG CLI [employer] Other XR ankle LT min 3V* Attending Dr: Christina GONZALEZ [employer] Other XR ankle LT min 3V* Ordering Provider: CARLOS Santos [employer] Other XR ankle LT min 3V* Date of Service: 10/10/21 [employer] Other XR ankle LT min 3V* XR/XR ankle LT min 3V*: Acute left ankle pain [employer] Other XR ankle LT min 3V* Copies to: CARLOS Beckman [employer] Other XR ankle LT min 3V* Left ankle 10/10/2021. [employer] Other XR ankle LT min 3V* CLINICAL DATA: Left ankle pain after twisting injury. [employer] Other XR ankle LT min 3V* FINDINGS: 3 views of the left ankle were obtained. [employer] Other XR ankle LT min 3V* No acute fracture or dislocation is identified. No other bony abnormality is seen. Anterolateral [employer] Other XR ankle LT min 3V* soft tissue swelling is noted. [employer] Other XR ankle LT min 3V* X R/XR ankle LT min 3V* [employer] Other XR ankle LT min 3V* IMPRESSION: Soft tis cody swelling. No acute bony abnormality. [employer] Other XR ankle LT min 3V* Impression dictated by: Erick Cueto Jr., M.D.10/10/2021 4:24 PM [employer] Other XR ankle LT min 3V* Dictation Location: [place] [address] [employer] Other XR ankle LT min 3V* Transcribed By: MIRELLA 10/10/21 [facility] [employer] Other XR ankle LT min 3V* Dictated By: Erick Cueto Jr, MD 10/10/21 [facility] [employer] Other XR ankle LT min 3V* Signed By: [employer] Other XR ankle LT min 3V* 10/10/21 1624 No rt [employer] Other Vital Signs Date Time Vital Sign Value Performing Clinician Facility 11-10-2024 09:08-0500 Body mass index (BMI) [Ratio] 38.94 kg/m2 Osei Helena DO Work Phone: [facility] 11-10-2024 09:08-0500 Body weight 106.14 kg Osei Helena DO Work Phone: [facility] 11-10-2024 09:08-0500 Diastolic blood pressure 70 mm[Hg] Osei Helena DO Work Phone: [facility] 11-10-2024 09:08-0500 Systolic blood pressure 130 mm[Hg] Osei Helena DO Work Phone: [facility] 10-29-2024 16:23-0500 Body mass index (BMI) [Ratio] 38.27 kg/m2 Osei Helena DO Work Phone: [facility] 10-29-2024 16:23-0500 Body weight 104.33 kg Osei Helena DO Work Phone: [facility] 10-29-2024 16:23-0500 Diastolic blood pressure 68 mm[Hg] Osei Helena DO Work Phone: [facility] 10-29-2024 16:23-0500 Systolic blood pressure 112 mm[Hg] Osei Helena DO Work Phone: [facility] 10-15-2024 16:11-0500 Body mass index (BMI) [Ratio] 38.94 kg/m2 Osei Helena DO Work Phone: [facility] 10-15-2024 16:11-0500 Body weight 106.14 kg Osei Helena DO Work Phone: [facility] 10-15-2024 16:11-0500 Diastolic blood pressure 64 mm[Hg] Osei Helena DO Work Phone: [facility] 10-15-2024 16:11-0500 Systolic blood pressure 118 mm[Hg] Osei Helena DO Work Phone: [facility] 10-02-2024 11:43-0500 Body mass index (BMI) [Ratio] 38.44 kg/m2 Osei Helena DO Work Phone: [facility] 10-02-2024 11:43-0500 Body weight 104.78 kg Osei Helena DO Work Phone: [facility] 10-02-2024 11:43-0500 Diastolic blood pressure 72 mm[Hg] Osei Helena DO Work Phone: [facility] 10-02-2024 11:43-0500 Systolic blood pressure 118 mm[Hg] Osei Helena DO Work Phone: [facility] 09-18-2024 10:52-0500 Body mass index (BMI) [Ratio] 38.74 kg/m2 Osei Helena DO Work Phone: [facility] 09-18-2024 10:52-0500 Body weight 105.6 kg Osei Helena DO Work Phone: [facility] 09-18-2024 10:52-0500 Diastolic blood pressure 68 mm[Hg] Osei Helena DO Work Phone: [facility] 09-18-2024 10:52-0500 Systolic blood pressure 118 mm[Hg] Osei Helena DO Work Phone: [facility] 09-03-2024 15:21-0500 Body mass index (BMI) [Ratio] 37.44 kg/m2 Osei Helena DO Work Phone: [facility] 09-03-2024 15:21-0500 Body weight 102.06 kg Osei Helena DO Work Phone: [facility] 09-03-2024 15:21-0500 Diastolic blood pressure 68 mm[Hg] Osei Helena DO Work Phone: [facility] 09-03-2024 15:21-0500 Systolic blood pressure 120 mm[Hg] Osei Helena DO Work Phone: [facility] 08-27-2024 13:08-0500 Body height 165.1 cm Camilla Hemmer PA Work Phone: [facility] 08-27-2024 13:08-0500 Body mass index (BMI) [Ratio] 38.11 kg/m2 Camilla Hemmer PA Work Phone: [facility] 08-27-2024 13:08-0500 Body weight 103.87 kg Camilla Hemmer PA Work Phone: [facility] 08-27-2024 13:08-0500 Diastolic blood pressure 72 mm[Hg] Camilla Hemmer PA Work Phone: [facility] 08-27-2024 13:08-0500 Heart rate 92 /min Camilla Hemmer PA Work Phone: [facility] 08-27-2024 13:08-0500 Respiratory rate 16 /min Camilla Gaston PA Work Phone: [facility] 08-27-2024 13:08-0500 SaO2% (BldA) [Mass fraction] 98 % Camilla Gaston PA Work Phone: [facility] 08-27-2024 13:08-0500 Systolic blood pressure 118 mm[Hg] Camilla Gaston PA Work Phone: [facility] 08-13-2024 09:22-0500 Body height 165.1 cm Hammad Hatch MD Work Phone: [facility] 08-13-2024 09:22-0500 Body mass index (BMI) [Ratio] 36.91 kg/m2 Hammad Hatch MD Work Phone: [facility] 08-13-2024 09:22-0500 Body weight 100.61 kg Hammad Hatch MD Work Phone: [facility] 08-05-2024 09:05-0500 Body mass index (BMI) [Ratio] 36.44 kg/m2 Flori Acevedoey PA Work Phone: [facility] 08-05-2024 09:05-0500 Body weight 99.34 kg Flori Clarks Hill PA Work Phone: [facility] 08-05-2024 09:05-0500 Diastolic blood pressure 68 mm[Hg] Flori [place] PA Work Phone: [facility] 08-05-2024 09:05-0500 Systolic blood pressure 110 mm[Hg] Flori Louise PA Work Phone: [facility] 07-03-2024 14:41-0400 Body mass index (BMI) [Ratio] 35.65 kg/m2 Flori Louise PA Work Phone: [facility] 07-03-2024 14:41-0400 Body weight 97.18 kg Flori [place] PA Work Phone: [facility] 07-03-2024 14:41-0400 Diastolic blood pressure 64 mm[Hg] Flori [place] PA Work Phone: [facility] 07-03-2024 14:41-0400 Systolic blood pressure 116 mm[Hg] Flori Acevedoey PA Work Phone: [facility] 06-04-2024 15:53-0400 Body mass index (BMI) [Ratio] 35.36 kg/m2 Osei Helena DO Work Phone: [facility] 06-04-2024 15:53-0400 Body weight 96.39 kg Osei Helena DO Work Phone: [facility] 06-04-2024 15:53-0400 Diastolic blood pressure 70 mm[Hg] Osei Helena DO Work Phone: [facility] 06-04-2024 15:53-0400 Systolic blood pressure 126 mm[Hg] Osei Helena DO Work Phone: [facility] 05-23-2024 09:35-0400 Body mass index (BMI) [Ratio] 35.01 kg/m2 Nom Nurse [facility] 05-23-2024 09:35-0400 Body weight 95.44 kg [facility] Nurse [facility] 05-20-2024 09:37-0400 Body height 165.1 cm Camilla Hemmer PA Work Phone: [facility] 05-20-2024 09:37-0400 Body mass index (BMI) [Ratio] 34.98 kg/m2 Camilla Hemmer PA Work Phone: [facility] 05-20-2024 09:37-0400 Body weight 95.35 kg Camilla Hemmer PA Work Phone: [facility] 05-20-2024 09:37-0400 Diastolic blood pressure 76 mm[Hg] Camilla Hemmer PA Work Phone: [facility] 05-20-2024 09:37-0400 Heart rate 87 /min Camilla Hemmer PA Work Phone: [facility] 05-20-2024 09:37-0400 Respiratory rate 16 /min Camilla Hemmer PA Work Phone: [facility] 05-20-2024 09:37-0400 SaO2% (BldA) [Mass fraction] 98 % Camilla Gaston PA Work Phone: [facility] 05-20-2024 09:37-0400 Systolic blood pressure 108 mm[Hg] Camillaslava Segurarosita PA Work Phone: [facility] 11-30-2023 09:33-0500 Body height 165.1 cm Jyoti Noble PA-C Work Phone: [facility] 11-30-2023 09:33-0500 Body weight 92.99 kg Jyoti Noble PA-C Work Phone: [facility] 11-30-2023 09:33-0500 Diastolic blood pressure 79 mm[Hg] Jyoti Noble PA-C Work Phone: [facility] 11-30-2023 09:33-0500 Heart rate 84 /min Jyoti Noble PA-C Work Phone: [facility] 11-30-2023 09:33-0500 SaO2% (BldA) [Mass fraction] 96 % Jyoti Noble PA-C Work Phone: [facility] 11-30-2023 09:33-0500 Systolic blood pressure 118 mm[Hg] Jyoti Noble PA-C Work Phone: [facility] 06-13-2023 12:36-0400 Body height 165.1 cm [facility]bis Renteria [facility] Work Phone: 06-13-2023 12:36-0400 Body mass index (BMI) [Ratio] 33.28 kg/m2 [facility]bis [facility] Work Phone: 06-13-2023 12:36-0400 Body surface area Derived from formula 1.98 m2 Ibis Renteria [facility] Work Phone: 06-13-2023 12:36-0400 Body weight 90.72 kg Ibis A Myra [facility] Work Phone: 06-13-2023 12:36-0400 Diastolic blood pressure 80 mm[Hg] Ibis A Myra [facility] Work Phone: 06-13-2023 12:36-0400 Heart rate 76 /min Ibis A Myra [facility] Work Phone: 06-13-2023 12:36-0400 Systolic blood pressure 116 mm[Hg] [facility]bis [facility]ra [facility] Work Phone: 06-08-2023 21:50-0400 Diastolic blood pressure 59 mm[Hg] [employer]C Ibis Myra Work Phone: [facility] 06-08-2023 21:50-0400 Heart rate 82 /min [employer] Ibis Myra Work Phone: [facility] 06-08-2023 21:50-0400 Respiratory rate 18 /min [employer]C Ibis Myra Work Phone: [facility] 06-08-2023 21:50-0400 SaO2% (BldA) [Mass fraction] 99 % [employer] TE[employer]ER-C Ibis Myra Work Phone: [facility] 06-08-2023 21:50-0400 Systolic blood pressure 115 mm[Hg] [employer] GR[employer] TE[employer]ER-C Ibis Myra Work Phone: [facility] 06-08-2023 16:35-0400 Body height 165.1 cm [employer] TE[employer]ER-C Ibis Myra Work Phone: [facility] 06-08-2023 16:35-0400 Body temperature 97.8 [degF] [employer] TE[employer]ER-C Ibis Myra Work Phone: [facility] 06-08-2023 16:35-0400 Body weight 91.6 kg [employer] TE[employer]-C Ibis Myra Work Phone: [facility] 12-28-2022 15:00-0400 Body weight 89.36 kg Irvin Hanna MD Work Phone: [facility] 12-28-2022 15:00-0400 Diastolic blood pressure 86 mm[Hg] Irvin Hanna MD Work Phone: [facility] 12-28-2022 15:00-0400 Heart rate 79 /min Irvin Hanna MD Work Phone: [facility] 12-28-2022 15:00-0400 Respiratory rate 16 /min Irvin Hanna MD Work Phone: [facility] 12-28-2022 15:00-0400 Systolic blood pressure 119 mm[Hg] Irvin Hanna MD Work Phone: [facility] 10-13-2022 09:35-0500 Body height 165.1 cm Ibis A Myra Work Phone: [facility] 320 DO Work Phone: 10-13-2022 09:35-0500 Body mass index (BMI) [Ratio] 33.45 kg/m2 Ibis A Myra Work Phone: [facility] 320 DO Work Phone: 10-13-2022 09:35-0500 Body surface area Derived from formula 1.98 m2 Ibis A Myra Work Phone: [facility] 320 DO Work Phone: 10-13-2022 09:35-0500 Body weight 91.17 kg Ibis A Myra Work Phone: [facility] 320 DO Work Phone: 10-13-2022 09:35-0500 Diastolic blood pressure 70 mm[Hg] Ibis A Myra Work Phone: [facility] DO Work Phone: 10-13-2022 09:35-0500 Heart rate 76 /min Ibis A Myra Work Phone: [facility] DO Work Phone: 10-13-2022 09:35-0500 Systolic blood pressure 102 mm[Hg] Ibis A Myra Work Phone: [facility] 320 DO Work Phone: 09-11-2022 09:58-0500 Diastolic blood pressure 82 mm[Hg] Ibis A Myra Work Phone: [facility] 250 DO Work Phone: 09-11-2022 09:58-0500 Diastolic blood pressure 80 mm[Hg] Ibis A Myra Work Phone: [facility] 250 DO Work Phone: 09-11-2022 09:58-0500 Systolic blood pressure 112 mm[Hg] Ibis A Myra Work Phone: [facility] 250 DO Work Phone: 09-11-2022 09:58-0500 Systolic blood pressure 108 mm[Hg] Ibis A Myra Work Phone: [facility] 250 DO Work Phone: 09-11-2022 08:57-0500 Body height 165.1 cm Ibis A Myra Work Phone: [facility] 250 DO Work Phone: 09-11-2022 08:57-0500 Body mass index (BMI) [Ratio] 32.95 kg/m2 Ibis A Myra Work Phone: [facility] DO Work Phone: 09-11-2022 08:57-0500 Body surface area Derived from formula 1.97 m2 Ibis A Myra Work Phone: [facility] 250 DO Work Phone: 09-11-2022 08:57-0500 Body weight 89.81 kg Ibis A Myra Work Phone: [facility] 250 DO Work Phone: 09-11-2022 08:57-0500 Diastolic blood pressure 68 mm[Hg] Ibis A Myra Work Phone: [facility] 250 DO Work Phone: 09-11-2022 08:57-0500 Heart rate 74 /min Ibis A Myra Work Phone: [facility] DO Work Phone: 09-11-2022 08:57-0500 Systolic blood pressure 102 mm[Hg] Ibis A Myra Work Phone: [facility] DO Work Phone: 07-31-2022 10:14-0500 Body weight 89.81 kg Irvin Hanna MD Work Phone: [facility] 07-31-2022 10:14-0500 Diastolic blood pressure 71 mm[Hg] Irvin Hanna MD Work Phone: [facility] 07-31-2022 10:14-0500 Heart rate 92 /min Irvin Hanna MD Work Phone: [facility] 07-31-2022 10:14-0500 Systolic blood pressure 109 mm[Hg] Irvin Hanna MD Work Phone: [facility] 07-21-2022 07:27-0400 Body height 165.1 cm Ibis A Myra Work Phone: [facility] DO Work Phone: 07-21-2022 07:27-0400 Body mass index (BMI) [Ratio] 33.45 kg/m2 Ibis A Myra Work Phone: [facility] 320 DO Work Phone: 07-21-2022 07:27-0400 Body surface area Derived from formula 1.98 m2 Ibis A Myra Work Phone: [facility] DO Work Phone: 07-21-2022 07:27-0400 Body weight 91.17 kg Ibis A Myra Work Phone: [facility] DO Work Phone: 07-21-2022 07:27-0400 Diastolic blood pressure 72 mm[Hg] Ibis A Myra Work Phone: [facility] DO Work Phone: 07-21-2022 07:27-0400 Heart rate 64 /min Ibis A Myra Work Phone: [facility] DO Work Phone: 07-21-2022 07:27-0400 Systolic blood pressure 106 mm[Hg] Ibis A Myra Work Phone: [facility] DO Work Phone: 07-10-2022 10:45-0400 Body height 165.1 cm Ibis A Myra Work Phone: [facility] 250 DO Work Phone: 07-10-2022 10:45-0400 Body mass index (BMI) [Ratio] 32.95 kg/m2 Ibis A Myra Work Phone: [facility] 250 DO Work Phone: 07-10-2022 10:45-0400 Body surface area Derived from formula 1.97 m2 Ibis A Myra Work Phone: [facility] 250 DO Work Phone: 07-10-2022 10:45-0400 Body weight 89.81 kg Ibis A Myra Work Phone: [facility] DO Work Phone: 07-10-2022 10:45-0400 Diastolic blood pressure 70 mm[Hg] Ibis A Myra Work Phone: [facility] 250 DO Work Phone: 07-10-2022 10:45-0400 Heart rate 76 /min Ibis A Myra Work Phone: [facility] DO Work Phone: 07-10-2022 10:45-0400 Systolic blood pressure 104 mm[Hg] Ibis A Myra Work Phone: [facility] DO Work Phone: 06-01-2022 11:36-0400 Body height 165.1 cm [employer] TE[employer]ER-C Ibis Myra Work Phone: [facility] 06-01-2022 11:36-0400 Body temperature 100 [degF] [employer] TEACHER-C Ibis Myra Work Phone: [facility] 06-01-2022 11:36-0400 Body weight 88.4 kg [employer]ADE TE[employer]ER-C Ibis Myra Work Phone: [facility] 06-01-2022 11:36-0400 Diastolic blood pressure 68 mm[Hg] [employer] GRADE TEACHER-C Ibis Myra Work Phone: [facility] 06-01-2022 11:36-0400 Heart rate 99 /min [employer]ADE TEACHER-C Ibis Myra Work Phone: [facility] 06-01-2022 11:36-0400 Respiratory rate 18 /min [employer]ADE TEACHER-C Ibis Myra Work Phone: [facility] 06-01-2022 11:36-0400 SaO2% (BldA) [Mass fraction] 97 % [employer] GRADE TEACHER-C Ibis Myra Work Phone: [facility] 06-01-2022 11:36-0400 Systolic blood pressure 121 mm[Hg] [employer] GRADE TEACHER-C Ibis Myra Work Phone: [facility] 05-18-2022 09:42-0400 Body height 165.1 cm Ibis A Myra Work Phone: [facility] DO Work Phone: 05-18-2022 09:42-0400 Body mass index (BMI) [Ratio] 31.95 kg/m2 Ibis A Myra Work Phone: [facility] 250 DO Work Phone: 05-18-2022 09:42-0400 Body surface area Derived from formula 1.94 m2 Ibis A Myra Work Phone: [facility] 250 DO Work Phone: 05-18-2022 09:42-0400 Body weight 87.09 kg Ibis A Myra Work Phone: [facility] 250 DO Work Phone: 05-18-2022 09:42-0400 Diastolic blood pressure 74 mm[Hg] Ibis A Myra Work Phone: [facility] DO Work Phone: 05-18-2022 09:42-0400 Heart rate 72 /min Ibis A Myra Work Phone: [facility] 250 DO Work Phone: 05-18-2022 09:42-0400 Systolic blood pressure 102 mm[Hg] Ibis A Myra Work Phone: [facility] 250 DO Work Phone: 03-23-2022 09:11-0400 Diastolic blood pressure 80 mm[Hg] Ibis A Myra Work Phone: [facility] DO Work Phone: 03-23-2022 09:11-0400 Systolic blood pressure 110 mm[Hg] Ibis A Myra Work Phone: [facility] DO Work Phone: 03-23-2022 09:06-0400 Body height 166.37 cm Ibis A Myra Work Phone: [facility] 250 DO Work Phone: 03-23-2022 09:06-0400 Body mass index (BMI) [Ratio] 31.3 kg/m2 Ibis A Myra Work Phone: [facility] DO Work Phone: 03-23-2022 09:06-0400 Body surface area Derived from formula 1.95 m2 Ibis A Myra Work Phone: [facility] 250 DO Work Phone: 03-23-2022 09:06-0400 Body weight 86.64 kg Ibis A Myra Work Phone: [facility] DO Work Phone: 03-23-2022 09:06-0400 Diastolic blood pressure 76 mm[Hg] Ibis A Myra Work Phone: [facility] 250 DO Work Phone: 03-23-2022 09:06-0400 Heart rate 66 /min Ibis Rhonda ArenasMyra Work Phone: [facility] DO Work Phone: 03-23-2022 09:06-0400 Systolic blood pressure 118 mm[Hg] Ibis Rhonda ArenasMyra Work Phone: [facility] 250 DO Work Phone: 01-25-2022 08:16-0400 Body height 165.1 cm Irvin Hanna MD Work Phone: [facility] 01-25-2022 08:16-0400 Body weight 86.36 kg Irvin Hanna MD Work Phone: [facility] 01-25-2022 08:16-0400 Diastolic blood pressure 83 mm[Hg] Irvin Hanna MD Work Phone: [facility] 01-25-2022 08:16-0400 Heart rate 71 /min Irvin Hanna MD Work Phone: [facility] 01-25-2022 08:16-0400 Systolic blood pressure 116 mm[Hg] Irvin Hanna MD Work Phone: [facility] 01-10-2022 12:45-0400 Body height 165.1 cm Ok Mckeon Other [employer] [facility] [employer] Other 01-10-2022 12:45-0400 Body mass index (BMI) [Ratio] 31.61 kg/m2 Ok Mckeon Other [employer] Other 01-10-2022 12:45-0400 Body temperature 97.8 [degF] Ok Mckeon Other [employer] Other 01-10-2022 12:45-0400 Body weight 86.18 kg Ok Mckeon Other [employer] Other 01-10-2022 12:45-0400 Diastolic blood pressure 80 mm[Hg] Ok Mckeon Other [employer] Other 01-10-2022 12:45-0400 SaO2% (BldA) [Mass fraction] 96 % Ok Mckeon Other [employer] Other 01-10-2022 12:45-0400 Systolic blood pressure 120 mm[Hg] Ok Mckeon Other [employer] Other 10-10-2021 15:50-0500 Body height 165.1 cm Christina Lambmond Other [employer] Other 10-10-2021 15:50-0500 Body mass index (BMI) [Ratio] 31.61 kg/m2 Christina Lambmond Other [employer] Other 10-10-2021 15:50-0500 Body temperature 97 [degF] Christina Lambmond Other [employer] Other 10-10-2021 15:50-0500 Body weight 86.18 kg Christina Lambmond Other [employer] Other 10-10-2021 15:50-0500 Diastolic blood pressure 76 mm[Hg] Christina Portia Other [employer] Other 10-10-2021 15:50-0500 Respiratory rate 18 /min Christina Portia Other [employer] Other 10-10-2021 15:50-0500 SaO2% (BldA) [Mass fraction] 99 % Christina Pearce Other [employer] Other 10-10-2021 15:50-0500 Systolic blood pressure 123 mm[Hg] Christina Pearce Other [employer] Other Encounters Encounter Date Encounter Type Care Provider Facility Start: 11-13-2024 End: 11-13-2024 Clinisync Result Encounter Generic External Data Provider [facility] External Department Unsolicited Start: 11-13-2024 End: 11-13-2024 Clinisync Result Encounter Generic External Data Provider [facility] External Department Unsolicited Start: 11-12-2024 End: 11-12-2024 ambulatory OSEI R HELENA [facility] Start: 11-10-2024 End: 11-10-2024 Bamboo flowsheet Osei Helena DO Work Phone: [facility] Start: 11-10-2024 End: 11-10-2024 Bamboo flowsheet Osei Helena DO Work Phone: [facility] Start: 11-10-2024 End: 11-10-2024 ambulatory OSEI HELENA Not Available Start: 11-10-2024 End: 11-10-2024 flow sheet Osei Helena DO Work Phone: [facility] Comment on above: 33 weeks gestation o f ; Third trimester Start: 11-07-2024 End: 11-07-2024 Clinisync Result Encounter [...] Only Roshni Jo RN [facility] Comment on above: Dichorionic diamniot ic twin in third trimester (Primary Dx) Start: 10-16-2024 End: 10-16-2024 ambulatory OSEI R HELENA [facility] Start: 10-15-2024 End: 10-15-2024 flow sheet [...] Start: 09-25-2024 End: 09-25-2024 ambulatory Osei Helena [facility] Work Phone: Start: 09-25-2024 End: 09-25-2024 Departed Referred Osei Helena DO Work Phone: [facility] Start: 09-25-2024 End: 09-25-2024 Clinisync Result Encounter Osei Helena DO Work Phone: [facility] External Department Unsolicited Start: 09-25-2024 End: 09-25-2024 Clinisync Result Encounter Osei Helena DO Work Phone: [facility] External Department Unsolicited Start: 09-25-2024 End: 09-26-2024 Telephone encounter Osei Helena DO Work Phone: [facility] Start: 09-19-2024 End: 09-26-2024 Orders Only Chrissie Lazaro [facility] M[facility]- Medicine at [facility] Comment on above: Dichorionic diamniot ic [...] Start: 09-02-2024 End: 09-02-2024 ambulatory JYOTI NOBLE Facility:[facility] Comment on above: POTS (postural ortho static [...] encounter Marycarmen Kennedy RN [facility]- [facility] at [facility] Start: 08-27-2024 End: 08-27-2024 Bamboo flowsheet Camilla TOLBERT Work Phone: [facility] Start: 08-27-2024 End: 08-27-2024 Bamboo flowsheet Camilla TOLBERT Work Phone: [facility] Start: 08-27-2024 End: 08-27-2024 Telephone encounter Camilla TOLEBRT Work Phone: [facility] Start: 08-27-2024 [...] Only Sammi Green RN [facility] at [facility] Comment on above: Dichorionic diamniot ic twin in second trimester (Primary Dx); POTS (postural orthostatic tachycardia syndrome); Asthma during ; 20 weeks gestation of Start: 08-13-2024 End: 08-13-2024 Office outpatient new 45 minutes Muna Lenz MD Work Phone: [facility] Comment on above: Dichorionic diamniot ic twin in second trimester (Primary Dx); POTS (postural orthostatic tachycardia syndrome); Asthma during ; 20 weeks gestation of Start: 08-13-2024 End: 08-13-2024 ambulatory OSEI Barragan [facility] Start: 08-11-2024 End: 08-13-2024 Clinisync Result [...] Start: 07-24-2024 End: 07-24-2024 ambulatory Celeste Watson Facility:[facility] Start: 07-07-2024 End: 07-07-2024 Chart abstracting Hammad Hatch MD Work Phone: [facility] Start: 07-03-2024 End: 07-03-2024 flow sheet [...] Start: 07-02-2024 End: 07-02-2024 ambulatory Joie Seaman APRN.CHERRY SORTER Work Phone: Neurology Comment on above: POTS (postural ortho static tachycardia syndrome) (Primary Dx); Near syncope Start: 07-02-2024 End: 07-02-2024 Telemedicine consultation with patient Joie Seaman APRN.CHERRY SORTER Work Phone: Neurology Start: 06-10-2024 End: 06-11-2024 [...] FM Start: 05-20-2024 End: 05-20-2024 Bamboo flowsheet Cmailla Gaston PA Work Phone: [facility] Start: 05-20-2024 End: 05-20-2024 Office outpatient visit 15 minutes Camilla TOLBERT Work Phone: [facility] Comment on above: Pain of left sacroil iac joint (Primary Dx) Start: 05-20-2024 End: 05-20-2024 ambulatory CAMILLA GASTON Not Available Start: 04-12-2024 End: 04-12-2024 ambulatory Celeste Watson [facility] Start: 04-12-2024 End: 04-12-2024 Patient encounter procedure Celeste [facility] Start: 03-25-2024 Patient encounter status Camilla TOLBERT Work Phone: [facility] Start: 03-25-2024 End: 03-25-2024 ambulatory JB BONDA Not Available Start: 03-20-2024 End: 03-20-2024 ambulatory Jyoti Dickey PA-C Work Phone: Neurology Comment on above: POTS (postural ortho static tachycardia syndrome) (Primary Dx) Start: 03-20-2024 End: 03-20-2024 Telemedicine consultation with patient Jyoti Noble BARNETT Work Phone: Neurology Start: 03-14-2024 End: 03-14-2024 ambulatory Celeste Watson [facility] Start: 03-14-2024 End: 03-14-2024 Patient encounter procedure Celeste [facility] Start: 02-26-2024 End: 02-26-2024 ambulatory JB Charlton NAZIA Not Available Start: 01-22-2024 ambulatory [employer] Krista L Mae Facil ity: [facility] Start: 01-01-2024 End: 01-01-2024 ambulatory CELESTE E RINKES Not Available Start: 12-21-2023 End: 12-21-2023 ambulatory OSEI MALIK Not Available Start: 12-11-2023 End: 12-11-2023 ambulatory O[employer] RECRU[employer] Krista L Mae Facility:[facility] Start: 12-11-2023 End: 12-11-2023 ambulatory CELESTE E RINKES Not Available Start: 11-30-2023 End: 11-30-2023 ambulatory AURORA SANTIAGO Facility:[facility] Start: 11-30-2023 End: 11-30-2023 Patient encounter procedure Jyoti Dickey PA-C Work Phone: Neurology Comment on above: POTS (postural ortho static tachycardia syndrome) (Primary Dx) Start: 11-12-2023 End: 11-12-2023 Patient encounter procedure Autonomic 2 Neur Main [facility] Start: 11-12-2023 End: 11-12-2023 ambulatory AURORA SANTIAGO Neurology Comment on above: Procedure Start: 10-10-2023 End: 10-10-2023 ambulatory AURORA SANTIAGO Facility:[facility] Start: 07-24-2023 End: 07-24-2023 ambulatory Jocelin FELIX [facility] Start: 07-20-2023 Telephone encounter Arin Tinajero RN [facility] Comment on above: Referral Follow-up Start: 07-10-2023 End: 07-10-2023 ambulatory JOSE ARMANDO GREY Facility:[facility] Start: 07-10-2023 End: 07-10-2023 Office outpatient new 30 minutes Jose Armando Grey DO Work Phone: [facility] [place] Comment on above: Chronic pain of righ t knee (Primary Dx); Tendinopathy of gluteal region Start: 07-06-2023 Orders Only Jose Armando Grey DO Work Phone: Orthopaedics Comment on above: Right knee pain, uns pecified chronicity (Primary Dx) Start: 07-05-2023 End: 07-05-2023 ambulatory [employer] TEACHER-C Ibis Renteria Work Phone: [facility] Work Phone: Start: 07-05-2023 End: 07-05-2023 Patient encounter procedure FOUR[employer] GRADE TEACHER-C Ibis Renteria Work Phone: [facility]Flu Vaccine Start: 06-13-2023 Office outpatient vi sit 15 minutes Ibis Limer Work Phone: [facility] 600 DO Work Phone: Start: 06-13-2023 ambulatory Tabatha Cota Facility:[id number] Start: 06-08-2023 End: 06-08-2023 Emergency department patient visit [employer]ADE TEACHER-C Ibis Renteria Work Phone: [facility] Work Phone: Start: 04-25-2023 End: 04-25-2023 ambulatory [employer] TEACHER-C Ibis Winter Myra Work Phone: [facility] Work Phone: Start: 04-25-2023 End: 04-25-2023 Departed Referred [employer]ADE TEACHER-C Ibis Myra Work Phone: [facility] [address] Work Phone: Start: 03-14-2023 ambulatory CHAN MUÑIZ Fa cility:[facility] Start: 01-18-2023 End: 01-18-2023 ambulatory FOUR[employer] GR[employer] TEACHER-C Ibis Winter Myra Work Phone: [facility] Work Phone: Start: 01-18-2023 End: 01-18-2023 Departed Referred [employer] TEACHER-C Ibis Arenasncer Work Phone: [facility] [address] Work Phone: Start: 12-28-2022 End: 12-28-2022 Patient encounter procedure Irvin Hanna MD Work Phone: Rheumatology Comment on above: Pain and swelling of knee, right (Primary Dx); Joint stiffness Start: 10-31-2022 Chart Update Ibis Ely cer Work Phone: [facility] 250 DO Work Phone: Start: 10-16-[address] Melodie Alfonso ty:[id number] Start: 10-13-2022 Current tobacco non- user cad cap copd pv dm Ibis Renteria Work Phone: [facility] 320 DO Work Phone: Start: 10-13-[address] Annalee Pierre acility: Start: 09-11-2022 Office outpatient vi sit 15 minutes Ibis Renteria Work Phone: [facility] 250 DO Work Phone: Start: 09-11-2022 Patient encounter procedure Ibis Renteria Work Phone: [facility] 250 DO Work Phone: Start: 09-11-[address] Melodie Alfonso ty: Start: 09-07-2022 Telephone encounter Ibis Renteria Work Phone: [facility] DO Work Phone: Start: 08-27-[address] Annalee Pierre acility: Start: 08-01-2022 AUDIT Ibis munoz Work Phone: [facility] 320 DO Work Phone: Start: 07-31-2022 EVENT EZEKIEL, Provider : HERIBERTO SERRANO CUTTER OPERATOR BRICK 1,[id number], Status: Pen, Time: 11:00 AM Ibis Renteria Work Phone: [facility] 250 DO Work Phone: Start: 07-31-[address] Annalee Pierre acility: Start: 07-31-2022 End: 07-31-2022 Patient encounter procedure Irvin Hanna MD Work Phone: Rheumatology Comment on above: Pain and swelling of knee, right (Primary Dx); Joint stiffness; Inflammatory arthritis Start: 07-26-2022 ambulatory IBIS RENTERIA Facilit y:[facility] Start: 07-21-2022 Current tobacco non- user cad cap copd pv dm Ibis Renteria Work Phone: [facility] 320 DO Work Phone: Start: 07-21-[address] Annalee Pierre acility: Start: 07-10-2022 Office outpatient vi sit 25 minutes Ibis Renteria Work Phone: [facility] 250 DO Work Phone: Start: 07-10-2022 Patient encounter procedure Ibis A Myra Work Phone: [facility] 250 DO Work Phone: Start: 07-10-[address] Melodie Alfonso ty: Start: 06-15-2022 Telephone encounter Ibis Rhonda Myra Work Phone: [facility] 250 DO Work Phone: Start: 06-12-2022 End: 06-12-[address] Annalee Maza Facility:[id number] Start: 06-05-2022 Patient encounter procedure Ibis A Myra Work Phone: [id number] [place] 5 Work Phone: Start: 06-01-2022 End: 06-01-2022 Emergency department patient visit FOURTH GRADE TEACHER-C Ibis Myra Work Phone: [facility] Start: 05-18-2022 Office outpatient vi sit 25 minutes Ibis A Myra Work Phone: [facility] 250 DO Work Phone: Start: 05-18-2022 Patient encounter procedure Ibis A Myra Work Phone: [facility] 250 DO Work Phone: Start: 05-08-2022 End: 05-08-2022 Patient encounter procedure FOURTH GRADE TEACHER-C Ibis Myra Work Phone: [facility] Start: 05-03-2022 Result Review Ibis Rhonda Spen cer Work Phone: [facility] 250 DO Work Phone: Start: 05-03-2022 [facility] Provider: María Elena Freire, Status: Pen, Time: 10:00 AM Ibis A Myra Work Phone: [facility] 250 DO Work Phone: Start: 05-03-2022 End: 05-03-2022 Patient encounter procedure FOURTH GRADE TEACHER-C Ibis Myra [facility] Start: 03-28-2022 EVENT EZEKIEL, Provider : HERIBERTO SINGH CUTTER OPERATOR BRICK 1,[id number], Status: Pen, Time: 8:00 AM Ibis A Myra Work Phone: [facility] 250 DO Work Phone: Start: 03-28-2022 Patient encounter procedure Ibis A Myra Work Phone: [facility] 250 DO Work Phone: Start: 03-26-2022 Chart Update Ibis Rhonda Spen cer [facility]: [facility] 250 DO Work Phone: Start: 03-24-2022 End: 03-24-2022 Patient encounter procedure FOURTH GRADE TEACHER-C Ibis Arenasncer Work Phone: [facility] Start: 03-23-2022 Office consultation new/estab patient 60 min Ibis A Myra Work Phone: [facility] 250 DO Work Phone: Start: 03-23-2022 Office outpatient ne w 45 minutes Ibis A Myra Work Phone: [facility] Work Phone: Start: 02-02-2022 Telephone encounter Irvin shannon MD Work Phone: Rheumatology Comment on above: Orders Start: 01-25-2022 End: 01-25-2022 Patient encounter procedure Irvin Hanna MD Work Phone: Rheumatology Comment on above: Pain and swelling of knee, right (Primary Dx); Joint stiffness Start: 01-10-2022 End: 01-10-2022 ambulatory Ok Linda Other Clipboard Other Start: 01-10-2022 Office outpatient ne w 45 minutes Ok Mckeon [facility] Start: 10-10-2021 End: 10-10-2021 ambulatory Christina Pearce Other [employer] Other Start: 10-10-2021 Office outpatient vi sit 15 minutes Christina Pearce [facility] [place] Procedures Date Procedure Procedure Detail Performing Clinician Start: 11-13-2024 OB BPP W NON-STRESS Generic External Data Provider Start: 11-10-2024 Urnls dip stick/tabl et rgnt non-auto w/o micrscp Osei Helena DO Work Phone: Start: 11-07-2024 ALL CBC WITH AUTO DIFF [...] Work Phone: Start: 10-27-2024 [facility] UA (CLEAN/CATCH) TIN ROOFER/MICRO IF IND. Osei Helena DO Work Phone: Start: 10-23-2024 OB BPP W NON-STRESS Generic External Data Provider Start: 10-15-2024 Urnls dip stick/tabl et rgnt non-auto w/o micrscp Osei Helena DO Work Phone: Start: 01-09-2025 Urnls dip stick/tabl et rgnt non-auto w/o micrscp [facility] Work Phone: Start: 09-25-2024 [facility] UA (CLEAN/CATCH) TIN ROOFER/MICRO IF IND. [facility] DO Work Phone: Start: 09-18-2024 Urnls dip stick/tabl et rgnt non-auto w/o micrscp [facility] Work Phone: Start: 09-03-2024 Urnls dip stick/tabl et rgnt non-auto w/o micrscp [facility] Work Phone: Start: 09-01-2024 GLUCOSE TOLERANCE 3 HOUR [facility] Work Phone: Start: 08-20-2024 ALL CBC WITH AUTO DIFF [facility] Work Phone: Start: 08-13-2024 Us preg uterus after 1st trimest 09/24 gestation [facility] Work Phone: Start: 08-11-2024 AFP, SERUM, OPEN SPI NA BIFIDA Flori TOLBERT Work Phone: Start: 08-05-2024 RECURRENT VAGINITIS (HTRX) Floir TOLBERT Work Phone: Start: 08-05-2024 Urnls dip [...] dip stick/tabl et rgnt non-auto w/o micrscp [facility] Work Phone: Start: 05-24-2024 Blood count complete automated Not In System Ref Prov Start: 05-24-2024 ALL CBC WITH AUTO DIFF Osei Helena DO Work Phone: Start: 05-23-2024 End: 05-23-2024 Urnls dip stick/tablet rgnt non-auto w/o micrscp Osei Helena DO Work Phone: Start: 07-10-2023 [facility] Pr ovider Historical Start: 06-08-2023 Plain chest X-ray FOURTH GRADE TEACHER-C Ibis Limer Work Phone: Start: 01-18-2023 Plain chest X-ray FOURTH GRADE TEACHER-C Ibis Myra Work Phone: Start: 05-03-2022 Plain chest X-ray [employer] GRADE TEACHER-C Ibis Limer Work Phone: Start: 08-05-2021 Arthroscopy of knee Lorna MartinezClipboard Arthroscopy of knee Ibis Ellis Myra Work Phone: Cryotherapy of warts Hangelvia gilliam Shirley Extraction of wisdom tooth Ibis Ellis Myra Work Phone: SARS-CoV-2, Influenz a & RSV (PCR) [employer] GRADE TEACHER-C Ibis Limer Work Phone: Tonsillectomy and adenoidectomy Ibis Arenasncer Work Phone: Tonsillectomy and adenoidectomy Celeste Watson NEGATED: Highlighted row has not occurred! Total colonoscopy Ibis Ellis Myra Work Phone: Plan of Treatment Date Care Activity Detail Author Start: 03-25-2034 DTaP,Tdap and Td Vac cines (8 - Td or Tdap) DTaP,Tdap and Td Vaccines (8 - Td or Tdap) [facility] Start: 03-25-2034 Urine microalbumin profile DTaP,Tdap,Td Vaccine (8 - Td or Tdap) [facility] Start: 08-05-2027 Screening for malign ant neoplasm of cervix Pap Smear [facility] Start: 10-17-2025 End: 10-17-2025 US MFM with or without consult US MFM with or without consult Imaging Routine Dichorionic diamniotic twin in third trimester Expected: 10/17/2025 (Approximate), Expires: 10/17/2025 [employer] Work Phone: Comment on above: Expected: 10/17/2025 (Approximate), Expires: 10/17/2025 Start: 09-19-2025 End: 09-19-2025 US MFM with or without consult US MFM with or without consult Imaging Routine Dichorionic diamniotic twin in second trimester Expected: 09/19/2025 (Approximate), Expires: 09/19/2025 [employer] Work Phone: Comment on above: Expected: 09/19/2025 (Approximate), Expires: 09/19/2025 Start: 08-15-2025 End: 08-15-2025 US MFM with or without consult US MFM with or without consult Imaging Routine Dichorionic diamniotic twin in second trimester POTS (postural orthostatic tachycardia syndrome) Asthma during 20 weeks gestation of Expected: 08/15/2025 (Approximate), Expires: 08/15/2025 [employer] Work Phone: Comment on above: Expected: 08/15/2025 (Approximate), Expires: 08/15/2025 Start: 08-13-2025 Adult BMI Screening Adult BMI Screen ing [facility] Start: 08-13-2025 Tobacco Screening Tobacco Screening [facility] Start: 11-26-2024 End: 11-26-2024 Patient encounter procedure 11/26/2024 2:10 PM EST Routine [facility] [address] [place] [id number] Osei Malik DO [address] [place] [address] [facility] Start: 11-12-2024 End: 11-12-2024 Patient encounter procedure 11/12/2024 9:30 AM EST Appointment [facility] [address] [place] [address] [facility] Start: 11-10-2024 End: 11-10-2024 Patient encounter procedure 11/10/2024 9:00 AM EST Routine [facility] [address] [place] [phone] Osei Malik, DO [address] [place] [address] [facility] Start: 10-29-2024 End: 10-29-2024 Patient encounter procedure [facility] Comment on above: Arrived Start: 10-16-2024 End: 10-16-2024 Patient encounter procedure 10/16/2024 1:00 PM EST Appointment [facility] [address] [place] [address] [facility] Start: 10-15-2024 End: 10-15-2024 [...] Routine [facility] [address] [place] [phone] Osei Malik, DO [address] [place], [place] [id number] [facility] Start: 09-25-2024 Urine culture [facility] Start: 09-25-2024 Bacteria identified in Urine by Culture Urine Culture [facility] Start: 09-23-2024 End: 09-23-2024 Patient encounter procedure 09/23/2024 1:00 PM EST Appointment [facility] - Ultrasound [address] [place] [phone] [facility] Start: 09-19-2024 End: 09-19-2024 Patient encounter procedure 09/19/2024 9:30 AM EST Appointment [facility] [address] [place] [phone] [facility] Start: 09-18-2024 End: 09-18-2024 Patient encounter procedure [facility] Comment on above: Arrived Start: 09-03-2024 End: 09-03-2024 Patient encounter procedure [facility] Comment on above: Arrived Start: 09-02-2024 End: 09-02-2024 ambulatory 09/02/2024 12:15 PM EST [facility] Neurology [address] [place] [address] Jyoti Dickey PA-C [address] [place], [place] [id number] F/u Neurology Comment on above: F/u Start: 09-02-2024 End: 09-02-2024 ambulatory 09/02/2024 10:45 AM EST [facility]rology [address] [place] [address] Jyoti Dickey PA-C [address] [place], [place] [id number] F/u Neurology Comment on above: F/u Start: 08-27-2024 End: 08-27-2024 Patient encounter procedure 08/27/2024 1:00 PM EST Office Visit [facility] [address] [place] [address] Camilla Gaston PA [address] [facility] [address] [place] [address] Arrived [facility] Comment on above: Arrived Start: 08-13-2024 End: 08-13-2024 Patient encounter procedure [facility] Start: 08-05-2024 End: 02-02-2025 Alpha fetoprotein, maternal Alpha fetoprotein, maternal Lab Routine Second trimester Expected: 08/05/2024 (Approximate), Expires: 02/02/2025 [facility] Comment on above: Expected: 08/05/2024 (Approximate), Expires: 02/02/2025 Start: 08-05-2024 End: 08-05-2024 Patient encounter procedure 08/05/2024 8:50 AM EST Routine [facility] [address] [place] [place] [phone] Osei Malik DO [address] [facility] [place] [address] [facility] Start: 07-03-2024 End: 07-03-2024 Patient encounter procedure [facility] Comment on above: Arrived Start: 06-04-2024 End: 06-04-2024 Patient encounter procedure [facility] Comment on above: Arrived Start: 05-25-2024 Covid-19 Vaccine ( season) Covid-19 Vaccine ( season) [facility] Start: 05-25-2024 Covid-19 Vaccine ( season) Covid-19 Vaccine ( season) [facility] Start: 05-25-2024 Influenza vaccination [facility] Start: 05-23-2024 End: 05-23-2025 ABO/Rh ABO/Rh [...] AM EDT Initial [facility] [address] [place] [address] [facility] Start: 05-23-2024 End: 05-23-2024 Professional / ancillary services management 05/23/2024 8:30 AM EDT Ancillary Procedure [facility] [address] [place] [address] [facility] Start: 05-20-2024 End: 05-20-2024 Patient encounter procedure 05/20/2024 9:30 AM EDT Office Visit [facility] [address] [facility] [address] [place] [address] Camilla Gaston PA [address] [facility] [address] [place] [address] Arrived [facility] Comment on above: Arrived Start: 04-20-2024 Urine microalbumin profile DTaP,Tdap,Td Vaccine (7 - Td or Tdap) [facility] Start: 09-24-2023 Depression Assessment Depression Ass essment [facility] Start: 05-25-2023 Covid-19 Vaccine () Covid-19 Vaccine () [facility] Start: 05-25-2023 Influenza vaccination [facility] Start: 04-25-2023 [facility] Start: 04-06-2023 FUV, Provider: Annalee Maza, Status: Pen, Time: 2:40 PM FUV, Provider: Annalee Maza, Status: Pen, Time: 2:40 PM -[facility] 320 DO Work Phone: Start: 2022 PAP TESTING PAP TESTING [facility] Start: 2022 Screening for malign ant neoplasm of cervix [facility] Start: 10-13-2022 FUV, Provider: Annalee Maza, Status: Pen, Time: 9:20 AM [facility]UV, Provider: Annalee Maza, Status: Pen, Time: 9:20 AM -[facility] 320 DO Work Phone: Start: 09-24-2022 DEPRESSION ASSESSMENT DEPRESSION ASS ESSMENT [facility] Start: 09-11-2022 FUV, Provider: Melodie Alcaraz, Status: Pen, Time: 9:30 AM [facility]UV, Provider: Melodie Alcaraz, Status: Pen, Time: 9:30 AM -[facility] 250 DO Work Phone: Start: 09-11-2022 EVENT EZEKIEL, Provider : HERIBERTO SINGH CUTTER OPERATOR BRICK 1,[id number], Status: Pen, Time: 8:30 AM EVENT EZEKIEL, Provider: HERIBERTO SINGH CUTTER OPERATOR BRICK 1,[id number], Status: Pen, Time: 8:30 AM [facility] 320 DO Work Phone: Start: 08-14-2022 EVENT EZEKIEL, Provider : HERIBERTO LEMON CUTTER OPERATOR BRICK 1,[id number], Status: Pen, Time: 10:00 AM EVENT EZEKIEL, Provider: HERIBERTO LEMON CUTTER OPERATOR BRICK 1,[id number], Status: Pen, Time: 10:00 AM -[facility] 250 DO Work Phone: Start: 07-21-2022 NPVRFRL, Provider: Annalee Maza, Status: Pen, Time: 7:20 AM NPV[facility]RL, Provider: Annalee Maza, Status: Pen, Time: 7:20 AM [facility] 250 DO Work Phone: Start: 07-10-2022 FUV, Provider: Melodie Alcaraz, Status: Pen, Time: 10:45 AM FUV, Provider: Melodie Alcaraz, Status: Pen, Time: 10:45 AM [facility] 250 DO Work Phone: Start: 06-05-2022 [facility], Provider: Annalee Maza, Status: Pen, Time: 10:[address] [facility], Provider: Annalee Maza, Status: Pen, Time: 10:00 AM [facility] 250 DO Work Phone: Start: 05-25-2022 Influenza vaccination [facility] Start: 05-18-2022 FUV, Provider: Melodie Alcaraz, Status: Pen, Time: 9:15 AM FUV, Provider: Melodie Alcaraz, Status: Pen, Time: 9:15 AM -[facility] 250 DO Work Phone: Start: 05-08-2022 End: 05-08-2022 Patient encounter procedure [facility] Start: 05-03-2022 [facility], Provider: María Elena Freire, Status: Pen, Time: 10:00 AM [facility], Provider: María Elena Freire, Status: Pen, Time: 10:00 AM -[facility] 250 DO Work Phone: Start: 03-28-2022 EVENT EZEKIEL, Provider : HERIBERTO SINGH CUTTER OPERATOR BRICK 1,[id number], Status: Pen, Time: 8:00 AM EVENT EZEKIEL, Provider: HERIBERTO SINGH CUTTER OPERATOR BRICK 1,[id number], Status: Pen, Time: 8:00 AM [facility] 250 DO Work Phone: Start: 01-25-2022 End: 03-27-2022 Chronic hepatitis differentiation between hepatitis B and C virus panel - Serum or Plasma [facility] Work Phone: Comment on above: Expected: 01/25/2022 , Expires: 03/27/2022 Start: 01-25-2022 End: 03-27-2022 Complement C1 esterase inhibitor [Mass/volume] in Serum or Plasma [facility] Work Phone: Comment on above: Expected: 01/25/2022 , Expires: 03/27/2022 Start: 01-25-2022 End: 03-27-2022 Complement C2 [Mass/volume] in Serum or Plasma [facility] Work Phone: Comment on above: Expected: 01/25/2022 , Expires: 03/27/2022 Start: 09-24-2021 DEPRESSION ASSESSMENT DEPRESSION ASS ESSMENT [facility] Start: 06-16-2021 COVID-19 VACCINE (3 - Booster for Pfizer series) COVID-19 VACCINE (3 - Booster for Pfizer series) [facility] Start: 03-11-2021 COVID-19 VACCINE (3 - Booster for Pfizer series) COVID-19 VACCINE (3 - Booster for Pfizer series) [facility] Start: 02-11-2021 COVID-19 VACCINE (3 - Pfizer risk series) COVID-19 VACCINE (3 - Pfizer risk series) [facility] Start: 2020 SHINGRIX VACCINE (1 of 2) VANG GRIX VACCINE (1 of 2) [facility] Start: 2020 Urine microalbumin profile [facility] Start: 12-03-2019 Adult BMI Follow Up Plan Adult BMI Follow Up Plan [facility] Start: 12-03-2019 Adult BMI Screening Adult BMI Screen ing [facility] Start: 12-03-2019 Anxiety Screening Anxiety Screening [facility] Start: 12-03-2019 CHLAMYDIA SCREENING (18-24) CHLAMYDIA SCREENING (18-24) [facility] Start: 12-03-2019 Depression Screening Depression Scre ening [facility] Start: 12-03-2019 GC (GONORRHEA) SCREE NINI (18-24) GC (GONORRHEA) SCREENING (18-24) [facility] Start: 12-03-2019 HEPATITIS C SCREENING HEPATITIS C SC JESSICA [facility] Start: 12-03-2019 HIV SCREENING HIV SCREENING [facility] Start: 12-03-2019 HIV screening HIV Screening [facility] Start: 12-03-2019 Screening for Chlamy taylor trachomatis Chlamydia Screening (18-24) [facility] Start: 2017 Meningococcal B Vacc ine: Consider Based On Risk (1 of 2 - Patient Seeks Protection) Meningococcal B Vaccine: Consider Based On Risk (1 of 2 - Patient Seeks Protection) [facility] Start: 12-03-2015 PEDS TO ADULT TRANSI TION ANNUAL ASSESSMENT PEDS TO ADULT TRANSITION ANNUAL ASSESSMENT [facility] Start: 2013 Adult depression screening assessment DEPRESSION SCREENING [facility] Start: 2013 PEDS TO ADULT TRANSI TION INITIAL DISCUSSION PEDS TO ADULT TRANSITION INITIAL DISCUSSION [facility] Start: 2013 Tobacco Screening Tobacco Screening [facility] Start: 2012 HPV VACCINE (1 - 2-d ose series) HPV VACCINE (1 - 2-dose series) [facility] Start: 12-03-2011 MENINGOCOCCAL B: Con tongue trimmer based on risk (1 of 2 - Risk Bexsero 2-dose series) MENINGOCOCCAL B: Consider based on risk (1 of 2 - Risk Bexsero 2-dose series) [facility] Start: 2010 HPV Vaccine (1 - 2-d ose series) HPV Vaccine (1 - 2-dose series) [facility] Start: 2010 HPV VACCINES (1 - 2- dose series) HPV VACCINES (1 - 2-dose series) [facility] Start: 2008 DTaP/Tdap/Td VACCINE S (1 - Tdap) DTaP/Tdap/Td VACCINES (1 - Tdap) [facility] Start: 12-03-2007 PNEUMOCOCCAL (1 - PCV) PNEUMOCOCCAL (1 - PCV) [facility] Start: 2002 MMR VACCINES (1 of 1 - Standard series) MMR VACCINES (1 of 1 - Standard series) [facility] Start: 2002 VARICELLA VACCINES ( 1 of 2 - 2-dose childhood series) VARICELLA VACCINES (1 of 2 - 2-dose childhood series) [facility] Start: 06-04-2002 COVID-19 Vaccine (#1) COVID-19 Vacci ne (#1) [facility] Start: 2001 HEPATITIS B (1 of 3 - 3-dose series) HEPATITIS B (1 of 3 - 3-dose series) [facility] Start: 2001 Hepatitis B Vaccine (1 of 3 - 3-dose series) Hepatitis B Vaccine (1 of 3 - 3-dose series) [facility] Start: 2001 HEPATITIS B VACCINES (1 of 3 - 3-dose series) HEPATITIS B VACCINES (1 of 3 - 3-dose series) [facility] Start: 2001 Screening for Chlamy taylor trachomatis Chlamydia Screening [facility] Bacteria identified in Urine by Culture Urine culture Microbiology Routine Missed menses Ordered: 05/23/2024 [facility] Comment on above: Ordered: 05/23/2024 CBC W Auto Different ial panel - Blood CBC and differential Lab Routine Missed menses Ordered: 05/23/2024 [facility] Comment on above: Ordered: 05/23/2024 CHLAMYDIA TRACHOMATI S (GENITO/STI) CHLAMYDIA TRACHOMATIS (GENITO/STI) Lab Routine STD exposure Ordered: 08/05/2024 [facility] Comment on above: Ordered: 08/05/2024 Cytology Cervical or vaginal smear or scraping study Pap Smear Pathology and Cytology Routine Well woman exam with routine gynecological exam Ordered: 08/05/2024 [facility] Comment on above: Ordered: 08/05/2024 Hemoglobin A1c/Hemoglobin.total in Blood Hemoglobin A1c Lab Routine Missed menses Ordered: 05/23/2024 [facility] Comment on above: Ordered: 05/23/2024 Hepatitis B virus ramirez rface Ag [Presence] in Serum or Plasma by Immunoassay Hepatitis B surface antigen Lab Routine Missed menses Ordered: 05/23/2024 [facility] Comment on above: Ordered: 05/23/2024 Hepatitis C virus Ab [Presence] in Serum or Plasma by Immunoassay Hepatitis C antibody Lab Routine Missed menses Ordered: 05/23/2024 [facility] Comment on above: Ordered: 05/23/2024 HIV-1/HIV-2 antigen/antibody combination immunoassay HIV-1 and HIV-2 antibodies Lab Routine Missed menses Ordered: 05/23/2024 [facility] Comment on above: Ordered: 05/23/2024 Neisseria gonorrhoea e DNA [Presence] in Unspecified specimen by PERFECTO with probe detection Neisseria gonorrhea DNA probe, direct Lab Routine STD exposure Ordered: 08/05/2024 [facility] Comment on above: Ordered: 08/05/2024 Patient Education [facility] Work Phone: Patient referral [facility] Work Phone: Reagin Ab [Presence] in Serum by RPR RPR Lab Routine Missed menses Ordered: 05/23/2024 [facility] Comment on above: Ordered: 05/23/2024 Rubella antibody, IgG Rubella an tibody, IgG Lab Routine Missed menses Ordered: 05/23/2024 [facility] Comment on above: Ordered: 05/23/2024 SURESWAB(R) ADVANCED VAGINITIS PLUS, TMA SURESWAB(R) ADVANCED VAGINITIS PLUS, TMA Pathology and Cytology Routine Vaginal discharge Ordered: 08/05/2024 [facility] Work Phone: Comment on above: Ordered: 08/05/2024 End: 08-04-2024 XR KNEE GENERAL 4V AP BOTH/PA BOTH/LAT/MERC RIGHT XR KNEE GENERAL 4V AP BOTH/PA BOTH/LAT/MERC RIGHT Radiology Routine Right knee pain, unspecified chronicity 1 Occurrences starting 07/06/2023 until 08/04/2024 [facility] Work Phone: Comment on above: 1 Occurrences starti ng 07/06/2023 until 08/04/2024 [facility] Immunizations Immunization Date Immunization Notes Care Provider Fa [facility] 07-24-2024 influenza, seasonal, injectable, preservative free Camilla TOLBERT Work Phone: [facility] Work Phone: 03-25-2024 tetanus toxoid, redu richar diphtheria toxoid, and acellular pertussis vaccine, adsorbed Camilla TOLBERT Work Phone: [facility] 07-05-2023 influenza virus vaccine, unspecified formulation Celeste Watson [facility] 07-05-2023 influenza, injectabl e, quadrivalent, preservative free Camilla TOLBERT Work Phone: [facility] 01-14-2021 Pfizer-BioNTech COVID-19 Vacc 30 MCG/0.3ML Intramuscular Suspension Ibis A Myra Work Phone: [facility] Comment on above: Result Comment: 2023: TPVAL 12-24-2020 Pfizer-BioNTech COVID-19 Vacc 30 MCG/0.3ML Intramuscular Suspension Ibis A Myra Work Phone: [facility] Comment on above: Result Comment: 2023: TPVAL 12-11-2017 meningococcal polysaccharide (groups A, C, Y and W-135) diphtheria toxoid conjugate vaccine (MCV4P) Christina Portia Other [facility] [employer] Other 12-11-2017 meningococcal ACWY vaccine, unspecified formulation Celeste Watson [facility] 11-06-2014 human papilloma viru s vaccine, quadrivalent Christina Portia Other [place] [employer] Other 11-06-2014 HPV, unspecified formulation Ibis A Myra Work Phone: [facility] 250 DO Work Phone: 06-26-2014 HPV, unspecified formulation Celeste Rinkes [facility] 06-26-2014 human papilloma viru s vaccine, quadrivalent Christina Portia Other [employer] Other 04-20-2014 human papilloma viru s vaccine, quadrivalent Christina Portia Other [place] [employer] Other 04-20-2014 meningococcal polysaccharide (groups A, C, Y and W-135) diphtheria toxoid conjugate vaccine (MCV4P) Christina Pearce Other [employer] Other 04-20-2014 tetanus toxoid, redu richar diphtheria toxoid, and acellular pertussis vaccine, adsorbed Christina Portia Other [facility] 04-20-2014 HPV, unspecified formulation Celeste Rinkes [facility] 04-20-2014 meningococcal ACWY vaccine, unspecified formulation Celeste Rinradha [facility] 12-27-2006 diphtheria, tetanus toxoids and acellular pertussis vaccine, unspecified formulation Ibis A Myra Work Phone: [facility] [place] DO Work Phone: 12-27-2006 DTaP, unspecified formulation Celeste RinClipboard [facility] 12-27-2006 measles, mumps, rubella, and varicella virus vaccine Ibis A Myra Work Phone: [facility] 12-27-2006 poliovirus vaccine, inactivated Ibis A Myra Work Phone: [facility] [place] DO Work Phone: 12-27-2006 poliovirus vaccine, unspecified formulation Celeste RinClipboard [facility] 02-06-2003 diphtheria, tetanus toxoids and acellular pertussis vaccine, unspecified formulation Ibis A Myra Work Phone: [facility] [employer] 250 DO Work Phone: 02-06-2003 DTaP, unspecified formulation Celeste Rinkes [facility] 02-06-2003 haemophilus influenz ae type b vaccine, conjugate unspecified formulation Ibis A Myra Work Phone: [facility] 250 DO Work Phone: 02-06-2003 Hib, unspecified formulation Celeste Rinkes [facility] 02-06-2003 measles, mumps and rubella virus vaccine Ibis A Myra Work Phone: [facility] 02-06-2003 varicella virus vaccine Susan ica A Myra Work Phone: [facility] 07-02-2002 diphtheria, tetanus toxoids and acellular pertussis vaccine, unspecified formulation Ibis A Myra Work Phone: [facility] 250 DO Work Phone: 07-02-2002 DTaP, unspecified formulation Celeste RinClipboard [facility] 07-02-2002 haemophilus influenz ae type b vaccine, conjugate unspecified formulation Ibis A Myra Work Phone: [facility] 250 DO Work Phone: 07-02-2002 Hib, unspecified formulation Celeste Rinkes [facility] 07-02-2002 pneumococcal conjuga te vaccine, 7 valent Ibis A Myra Work Phone: [facility] 250 DO Work Phone: 07-02-2002 poliovirus vaccine, inactivated Ibis A Myra Work Phone: [facility] 250 DO Work Phone: 07-02-2002 poliovirus vaccine, unspecified formulation Celeste Rinkes [facility] 05-19-2002 diphtheria, tetanus toxoids and acellular pertussis vaccine, unspecified formulation Ibis A Myra Work Phone: [place] [address] DO Work Phone: 05-19-2002 DTaP, unspecified formulation Celeste RinClipboard [facility] 05-19-2002 haemophilus influenz ae type b conjugate and Hepatitis B vaccine Ibis A Myra Work Phone: [place] [address] DO Work Phone: 05-19-2002 pneumococcal conjuga te vaccine, 7 valent Ibis A Myra Work Phone: [place] [address] DO Work Phone: 05-19-2002 poliovirus vaccine, inactivated Ibis A Myra Work Phone: [place] [address] DO Work Phone: 05-19-2002 poliovirus vaccine, unspecified formulation Celeste RinClipboard [facility] 03-05-2002 diphtheria, tetanus toxoids and acellular pertussis vaccine, unspecified formulation Ibis A Myra Work Phone: [facility] [place] DO Work Phone: 03-05-2002 DTaP, unspecified formulation Celeste Rinkes [facility] 03-05-2002 haemophilus influenz ae type b conjugate and Hepatitis B vaccine Ibis A Myra Work Phone: [facility] [place] DO Work Phone: 03-05-2002 poliovirus vaccine, inactivated Ibis A Myra Work Phone: [facility] [place] DO Work Phone: 03-05-2002 poliovirus vaccine, unspecified formulation Celeste Watson [facility] 2001 hepatitis B vaccine, pediatric or pediatric/adolescent dosage Ibis Renteria Work Phone: [facility] Payers Date Payer Category Payer Self-pay [id number] 2023 Unknown [id number] 2022 Medicaid HMO [employer] [id number] 2021 Private Health Insurance [id number] .[id number]. [id number] 2021 Private Health Insurance [id number] [id number] 2020 Private Health Insurance [facility] CHOICE PLUS [id number] 2020-Present [phone] [address] [place] [address] HMO [id number]. [id number] 2020 Unknown [id number] 2017 Managed Care Other (unspecified) [id number]. [id number] 2013 Medicaid [employer] [id number] 2013Present [phone] [address] [place] [address] Medicaid [id number] [id number]. [id number] 2013 Medicaid [id number]. 1.13.159.2. [id number] 2007 Unknown [id number] 2.16.840.1.029025.19 2001 Unknown [id number] 2.16.840.1.944708.3.579.2. 1068 2001 Unknown [id number] 2.16.840.1.369268.3.579.2. 594 2001 Unknown [id number] 2.16.840.1.395928.3.579.2. 594 2001 Unknown [id number] 2.16.840.1.223215.3.579.2. 356 2001 Unknown [id number] 2.16.840.1.441784.3.579.2. 356 2001 Unknown [id number] 2.16.840.1.340610.3.579.2. 356 2001 Unknown [id number] 2.16.840.1.449412.3.579.2. 356 2001 Unknown [id number] 2.16.840.1.261992.3.579.2. 356 2001 Unknown [id number] 2.16.840.1.061824.3.579.2. 356 2001 Unknown [id number] 2.16.840.1.397261.3.579.2. 356 2001 Unknown [id number] 2.16.840.1.020186.3.579.2. 356 2001 Unknown [id number] 2.16.840.1.777028.3.579.2. 727 2001 Unknown [id number] 2.16.840.1.165733.3.579.2. 727 2001 Unknown [id number] 2.16.840.1.291501.3.579.2. 727 2001 Unknown [id number] 2.16.840.1.455063.3.579.2. 727 2001 Unknown [id number] 2.16.840.1.534362.3.579.2. 727 2001 Unknown [id number] 2.16.840.1.127711.3.579.2. 1258 2001 Unknown [id number] 2.16.840.1.741631.3.579.2. 1258 2001 Unknown [id number] 2.16.840.1.486343.3.579.2. 1258 2001 Unknown [id number] 2.16.840.1.241537.3.579.2. 1258 2001 Unknown [id number] 2.16.840.1.616549.3.579.2. 1258 2001 Unknown [id number] 2.16.840.1.406279.3.579.2. 1258 2001 Unknown [id number] 2.16.840.1.213757.3.579.2. 1258 2001 Unknown [id number] 2.16.840.1.621806.3.579.2. 1258 2001 Unknown [id number] 2.16.840.1.672730.3.579.2. 1258 2001 Unknown [id number] 2.16.840.1.290486.3.579.2. 1258 2001 Unknown [id number] 2.16.840.1.437755.3.579.2. 1258 2001 Unknown [id number] 2.16.840.1.345163.3.579.2. 1258 2001 Unknown [id number] 2.16.840.1.474308.3.579.2. 1259 2001 Unknown [id number] 2.16.840.1.153676.3.579.2. 1259 2001 Unknown [id number] 2.16.840.1.741833.3.579.2. 1259 2001 Unknown [id number] 2.16.840.1.533836.3.579.2. 1259 2001 Unknown [id number] 2.16.840.1.463324.3.579.2. 1259 2001 Unknown [id number] 2.16.840.1.529610.3.579.2. 1286 2001 Unknown [id number] 2.16.840.1.885081.3.579.2. 1286 2001 Unknown [id number] 2.16.840.1.847798.3.579.2. 1286 2001 Unknown [id number] 2.16.840.1.477755.3.579.2. 1286 2001 Unknown [id number] 2.16.840.1.038117.3.579.2. 1286 Unknown Unknown [employer] BC/BS [id number] Unknown [id number] 2.16.840.1.084449.3.579.2. 531 Social History Date Type Detail [facility] Work Phone: Start: 2001 Sex Assigned At Not on file [facility] Start: 01-15-2022 End: 07-31-2022 Exposure to SARS-CoV-2 (event) Not sure [facility] Start: 12-28-2022 End: 02-25-2024 Sex Assigned At [facility] Start: 12-28-2022 End: 02-25-2024 No alcohol use No alcohol use [facility] Comment on above: very rarely soda; Start: 09-20-2019 End: 02-20-2023 Tobacco smoking status NHIS Never smoked tobacco (finding) [facility] Start: 2001 Sex Assigned At Female F [facility] Start: 07-31-2022 End: 02-20-2023 Tobacco use and exposure Smokeless tobacco non-user [facility] Adult Depression Screening Assessment 0 [facility] Start: 09-29-2023 Gender identity Identifies as female gender (finding) [facility] Start: 06-04-2024 End: 10-27-2024 Alcoholic beverage intake Ex-drinker (finding) [facility] Do you belong to any clubs or organizations such as spiritism groups, unions, fraternal or athletic groups, or [...] Start: 04-27-2015 End: 09-26-2024 Sex Female (finding) [facility] NEGATED: Highlighted rowStart: NINF History of tobacco use Passive smoker [facility] Medical Equipment Procedure Code Equipment Code Equipment Origin al Text Equipment Identifier Dates 1 strip by In Vi tro route Daily Use in the morning prior to breakfast, 1 hour after each meal for a total of 4times daily. [id number] Start: 09-18-2024 End: 10-18-2024 1 each by In Vit ro route Daily Use to check FSBS four times daily [id number] Start: 09-18-2024 End: 10-18-2024 Clinical Notes 09-24-2007 to 11-10-2024 Irvin Mendes, CIVIL ATTORNEY - 11/10/2024 9:00 AM Teresa Bar, CIVIL ATTORNEY - 10/29/2024 3:50 PM Teresa Bar, CIVIL ATTORNEY - 10/15/2024 3:30 PM Titi Mendes, CIVIL ATTORNEY - 10/02/2024 11:00 AM EST Note Date & Type Note Facility 11-10-2024 History of Present illness Narrative Reason for [...] (OVASITOL PO) 2 times daily omeprazole (PRILOSEC) 40 mg, Oral, Daily before breakfast, Do not [...] nursing note reviewed. Exam conducted with a field application engineer present. Vitals: Estimated body mass index is 38.94 kg/m as calculated from the following: Height as of 08/27/24: 5' 5 . Weight as of this encounter: 234 lb. BP: 130/70 Patient's last menstrual period was 03/22/2024. ASSESSMENT & PLAN ICD-10-CM 1. 33 weeks gestation of Z3A.33 POCT urinalysis dipstick manually resulted 2. Third trimester Z34.93 Patient presents today for a routine obstetrics appointment. Patient is currently 33w2d with a Estimated Date of Delivery: 12/27/24. Patient to continue with current plan of care for and will return to clinic in 2 weeks for routine OB appointment for twin gestations. Documented by Irvin Mendes LPN on behalf of: Osei Malik DO documented in this encounter [facility] 10-29-2024 History of Present illness Narrative Reason [...] nursing note reviewed. Exam conducted with a field application engineer present. Vitals: Estimated body mass index is [...] Camilla Bar LPN on behalf of: Osei Helena, DO documented in this encounter [facility] 10-15-2024 History of Present illness Narrative [...] nursing note reviewed. Exam conducted with a field application engineer present. Vitals: Estimated body mass index is [...] Osei Malik DO documented in this encounter [facility] 10-02-2024 History of Present illness Narrative [...] Do not swallow. Blood Glucose Monitoring Suppl ([employer] Interventional Glucometer) w/Device kit 1 kit, Does not [...] nursing note reviewed. Exam conducted with a field application engineer present. Vitals: Estimated body mass index is [...] Osei Malik DO documented in this encounter [facility] 09-25-2024 Telephone encounter Note Patient called [...] today. Patient was advised to report to [facility] for check and she was asking if she could go to [facility] as that's closer she was advised we prefer [place] but she can go where she is comfortable. Patient states will go to [facility] as she is at work and that's closer right now. Patient advised note would be in chart. [facility] Work Phone: 09-25-2024 Miscellaneous Notes Patient [...] today. Patient was advised to report to [facility] for check and she was asking if she could go to [facility] as that's closer she was advised we prefer [place] but she can go where she is comfortable. Patient states will go to [facility] as she is at work and that's closer right now. Patient advised note would be in chart. documented in this encounter [facility] 09-18-2024 History of Present illness Narrative [...] nursing note reviewed. Exam conducted with a field application engineer present. Vitals: Estimated body mass index is [...] Osei Malik DO documented in this encounter [facility] 09-03-2024 History of Present illness Narrative [...] Osei Malik DO documented in this encounter [facility] 09-02-2024 History of Present illness Narrative Images from the original note were not included. [facility] Follow-Up VIRTUAL VISIT This is a virtual visit using [employer] Zoom Video Visit. It required patient-provider interaction for the medical decision making as documented below. I have communicated my name and active licensure. The patient's identity and physical location were verified at the time of this visit. Either the patient or their legal outbound sales representative has been informed of the [...] which included preparing to see the patient, [id number] patient care, completing clinical documentation, obtaining and/or reviewing separately obtained history, performing a medically appropriate examination, and counseling and educating the patient/family/caregiver. Jyoti Dickey PA-C Neuromuscular Medicine [address] [place] [address]. [id number] Appointment: [phone] During our virtual visit encounter we discussed [...] bright light?: Mild documented in this encounter [facility] 09-02-2024 Note HNO ID: [id number] Author: JYOTI DICKEY PA-C Service: ? Author Type: Physician Viscosity Tester Type: Progress Notes Filed: 09/02/2024 11:21 Note Text: [facility] Follow-Up VIRTUAL VISIT This is a virtual visit using Plai[employer] Video Visit. It required patient-provider interaction for the medical decision making as documented below. I have communicated my name and active licensure. The patient's identity and physical location were verified at the time of this visit. Either the patient or their legal outbound sales representative has been informed of the [...] female here t (more content not included)... [facility] 08-29-2024 Miscellaneous Notes Junior Project Coordinator spoke to patient . Patient has complains of SOB which she states is mainly at night time. She has recently seen her PCP who stated that her lungs are tight/restricted and prescribed her an inhaler. Today the patient is feeling better and states that when she checked her SPO2 today it was at 96%. Junior Project Coordinator advised patient to monitor and if her O2 Sat falls under 95% and/or the inhaler does not help to present to her nearest ER. Patient verbalized understanding. documented in this encounter [facility] 08-29-2024 Telephone encounter Note Junior Project Coordinator spoke to patient . Patient has complains of SOB which she states is mainly at night time. She has recently seen her PCP who stated that her lungs are tight/restricted and prescribed her an inhaler. Today the patient is feeling better and states that when she checked her SPO2 today it was at 96%. Junior Project Coordinator advised patient to monitor and if her O2 Sat falls under 95% and/or the inhaler does not help to present to her nearest ER. Patient verbalized understanding. [facility] 08-27-2024 Telephone encounter Note Alternative inhaler requested by pharmacy. [facility] 08-27-2024 Miscellaneous Notes Alternative inhaler requested by pharmacy. documented in this encounter [facility] 08-27-2024 History of Present illness Narrative Images from the original note were not included. Subjective Patient ID: Madyson Mai is a 23 y.o. female who presents for asthma. Madyson is present today for evaluation of asthma. Admits she is 22 weeks with twins, she is not sure if that is what is flaring up her asthma. She has not see her medical billing specialist in a couple of years and her [...] visit: Mild intermittent asthma with acute exacerbation ([facility]) - fluticasone (Flovent HFA) 110 [...] fail to improve. documented in this encounter [facility] 08-13-2024 History of Present illness Narrative [...] no Have you been seen here at [facility] in a previous ? no Recent ER visits or hospitalizations? no Bring blood sugar log or meter with you today? (Please bring them with you for every visit at [facility]) n/a Flu vaccine (Jul-November)? Yes Any [...] Resource Strain: Low Risk (02/25/2024) Received from [facility] Overall Financial Resource Strain (CARDIA) Difficulty of Paying Living Expenses: Not very hard Food Insecurity: No Food Insecurity (08/13/2024) Hunger Screening Food Insecurity - Worry: Never True Food Insecurity - Inability: Never True Transportation Needs: No Transportation Needs (02/25/2024) Received from [facility] PRAPARE - Transportation Lack of Transportation (Medical): No Lack of Transportation (Non-Medical): No Physical Activity: Inactive (02/25/2024) Received from [facility] Exercise Vital Sign Days of Exercise per Week: 0 days Minutes of Exercise per Session: 0 min Stress: No Stress Concern Present (02/25/2024) Received from [facility] [employer] [place] of Occupational Health - Occupational Stress Questionnaire Feeling of Stress : Only a little Social Connections: Moderately Integrated (02/25/2024) Received from [facility] Social Connection and Isolation Panel [NHANES] Frequency of Communication with Friends and Family: More than three times a week Frequency of Social Gatherings with Friends and Family: Three times a week Attends Baptism Services: More than 4 times per year Active Member of Clubs or Organizations: No Attends Club or Organization Meetings: Patient declined Marital Status: Interpersonal Safety: Not on file Housing Instability: Low Risk (02/25/2024) Received from [facility] Housing Stability Vital Sign Unable to [...] a thick intervening membrane. I discussed with . Madyson Mai today the increased risks of [...] complications, or both, related to use. The [place] [employer] and the [...] tachycardia syndrome) She follows with Neurology at [facility]. Last visit was on 07/02/2024. External records reviewed. 07/02/2024 - General Neurology, Joie Seaman APRN.CHERRY SORTER ASSESSMENT Madyson Mai is a 23 year [...] continue with routine care in your office [facility], the CDC, and other organizations representing maternal and public health professionals recommend that , , and lactating people and those considering receive the COVID-19 vaccination. Vaccination is the best method to reduce maternal and complications of SARS-CoV-2 infection. This document was created with [employer] technology. Though I make every effort to review the dictation as it is transcribed, on occasion the spoken word can be misinterpreted by the technology leading to inappropriate words, phrases, or sentences. This note is addressed to the requesting provider as a consultation for clinical guidance. Specific medical abbreviations are occasionally used and those are generally approved by the [place]?Board of?Obstetrics and?Gynecology?as well as?Loretta s abbreviations. The above plan of care was based solely on the diagnoses for which a consultation was requested. ?More frequent testing may be indicated based on her other medical/obstetrical conditions. The management of other or medical conditions is beyond the scope of requested consultation and will continue to be followed by the primary director of plant operations or primary care provider. Thank you for [...] (not separately reported) [facility] Tele[facility] encounter Note Can we have her schedule for a follow up appointment. Can be virtual or in person. Thanks, AM [facility] Work Phone: 08-06-2024 Miscellaneous Notes Can we have her schedule for a follow up appointment. Can be virtual or in person. Thanks, AM documented in this encounter [facility] 08-05-2024 History of Present illness Narrative [...] nursing note reviewed. Exam conducted with a field application engineer present. Vitals: Estimated body mass index is [...] obtained without difficulty and patient was given [facility] order to have obtained. Orders Placed This Encounter Procedures CHLAMYDIA TRACHOMATIS (GENITO/STI) Neisseria gonorrhea DNA probe, direct Alpha fetoprotein, maternal POCT urinalysis dipstick manually resulted Follow Up: Patient is to return to our office in 4 weeks for routine OB appointment Documented by Annika Silva LPN on behalf of: TOMASZ Rizvi documented in this encounter [facility] 07-03-2024 History of Present illness Narrative [...] current . Patient is being referred to [facility] for her twin , gave her information about who she will be seeing there. No orders of the defined types were placed in this encounter. Follow Up: Patient is to return to office in 4 weeks for routine OB appointment. Documented by Ibis Sandoval on behalf of: TOMASZ Rizvi documented in this encounter [facility] 07-02-2024 History of Present illness Narrative Images from the original note were not included. [facility] Follow Up / Established Virtual Visit I have communicated my name and active licensure. The patient's identity and physical location were verified at the time of this visit. Either the patient or their legal outbound sales representative has been informed of the risks and benefits of -- and alternatives to -- treatment through a remote evaluation and consents to proceed with the evaluation remotely. Individuals who were included in, or assisted with the encounter were: Madyson Seaman APRN.CHERRY SORTER Chief Complaint/Issues: Madyson Mai is a 23 year old female seen in the [facility] for: POTS Most [...] Plan 07/02/2024 - General Neurology, Joie Seaman APRN.CHERRY SORTER ASSESSMENT Madyson Mai is a 23 year [...] which included preparing to see the patient, [id number] patient care, completing clinical documentation, obtaining and/or reviewing separately obtained history, performing a medically appropriate examination, counseling and educating the patient/family/caregiver, and ordering medications, tests, or procedures. Joie Seaman, RETIREMENT PLAN SPECIALIST.CHERRY SORTER 06/28/2024 PROMIS Global [employer] Physical Health Summary [...] and warrants attention documented in this encounter [facility] 07-02-2024 Note HNO ID: [id number] Author: JOIE SEAMAN APRN.HAMZAH Service: ? Author Type: Nurse Practitioner Type: Progress Notes Filed: 07/02/2024 19:57 Note Text: [facility] for General Neurology Follow Up / Established Virtual Visit I have communicated my name and active licensure. The patient's identity and physical location were verified at the time of this visit. Either the patient or their legal outbound sales representative has been informed of the risks and benefits of -- and alternatives to -- treatment through a remote evaluation and consents to proceed with the evaluation remotely. Individuals who were included in, or assisted with the encounter were: Madyson Latesha Mariah Seaman APRN.CNP Chief Complaint/Issues: Madyson Mai is a 23 year old female seen in the [facility] for General Neurology for: POTS Most [...] Plan 07/02/2024 - General Neurology, Joie Seaman, RETIREMENT PLAN SPECIALIST.CHERRY SORTER ASSESSMENT Madyson Mai is a 23 year [...] Mostly Moderately S (more content not included)... [facility] 06-04-2024 History of Present illness Narrative Reason [...] nursing note reviewed. Exam conducted with a field application engineer present. Vitals: Estimated body mass index is [...] possibly adding medication. Pt being referred to [facility] for TWIN gestation. Expectations throughout regarding labs, ultrasounds, and appointments have been discussed with the patient in detail. It was reiterated that the patient is to drink 6-8 glasses of water a day, eat 6 small meals a day, do not consume raw or undercooked meat, and stay away from [facility]. Patient has been consulted regarding any further do's and don'ts of . Patient voiced understanding and all questions and concerns were answered. Orders Placed This Encounter Procedures POCT urinalysis dipstick manually resulted Follow Up: Patient is to return in 4 weeks for routine OB appointment. Documented by Camilla Bar LPN on behalf of: Osei Malik DO documented in this encounter [facility] 05-23-2024 History of Present illness Narrative [...] providers found * documented in this encounter [facility] 05-20-2024 History of Present illness Narrative [...] topical cream for less systemic absorption. Consider human services care specialist. Can provide pt with referral to PT if symptoms do not improve with the above. X-rays not yet indicated, especially as pt is . Follow up if symptoms worsen or fail to improve. documented in this encounter [facility] 03-20-2024 History of Present illness Narrative Images from the original note were not included. [facility] for Neuromuscular Medicine Follow-Up VIRTUAL VISIT This is a virtual visit using Gecko TV[employer] Zoom Video Visit. It required patient-provider interaction for the medical decision making as documented below. I have communicated my name and active licensure. The patient's identity and physical location were verified at the time of this visit. Either the patient or their legal outbound sales representative has been informed of the [...] which included preparing to see the patient, jgol-rd-rodn patient care, completing clinical documentation, obtaining and/or reviewing separately obtained history, performing a medically appropriate examination, counseling and educating the patient/family/caregiver, and ordering medications, tests, or procedures. Jyoti Dickey PA-C Neuromuscular Medicine [address] [place] [address]. [id number] Appointment: [phone] During our virtual visit encounter we discussed [...] problem? : Mild documented in this encounter [facility] 03-20-2024 Note HNO ID: [id number] Author: JYOTI DICKEY PA-C Service: ? Author Type: Physician Viscosity Tester Type: Progress Notes Filed: 03/20/2024 15:17 Note Text: [facility] for Neuromuscular Medicine Follow-Up VIRTUAL VISIT This is a virtual visit using Plairom Video Visit. It required patient-provider interaction for the medical decision making as documented below. I have communicated my name and active licensure. The patient's identity and physical location were verified at the time of this visit. Either the patient or their legal outbound sales representative has been informed of the [...] the mean hea (more content not included)... [facility] 11-30-2023 History of Present illness Narrative Images from the original note were not included. [facility] for Neuromuscular Medicine New Patient Evaluation [...] experienced LOC while walking up the stairs. [place] prodromal symptoms including lightheadedness and tunnel vision. [...] Plantarflexion 5/5 5/5 Movement/Coordination Finger-to- nose-finger and rnir-tc-fzug intact bilaterally. No evidence of ataxia arms. [...] which included preparing to see the patient, pdyx-xp-bqaf patient care, completing clinical documentation, obtaining and/or [...] on 11/30/23. Jyoti Dickey PA-C Neuromuscular Medicine [facility] [place]. [address] Appointment: [phone] 1. This office note has been dictated [...] problem? : Moderate documented in this encounter [facility] 11-30-2023 Note HNO ID: [id number] Author: JYOTI DICKEY PA-C Service: ? Author Type: Physician Viscosity Tester Type: Progress Notes Filed: 11/30/2023 11:14 Note Text: [facility] for Neuromuscular Medicine New Patient Evaluation [...] experienced LOC while walking up the stairs. [place] prodromal symptoms including lightheadedness and tunnel vision. [...] breathing: - Tac (more content not included)... [facility] 11-12-2023 Note HNO ID: [id number] Author: ?, ?, ? Service: ? Author [...] Care Visit completed when applicable. Gauri Harris [facility] 11-12-2023 History of Present illness Narrative UNIVERSAL [...] applicable. Gauri Harris documented in this encounter [facility] 10-10-2023 Note HNO ID: [id number] Author: AURORA SANTIAGO PA-C Service: ? Author Type: Physician Viscosity Tester Type: Progress Notes Filed: 10/10/2023 16:33 Note Text: [facility] for Neuromuscular Medicine New Patient Evaluation [...] No current facility-adminis (more content not included)... [facility] 10-10-2023 Note HNO ID: [id number] Author: ANGELIQUE RUTH MD Service: ? Author [...] VE Couplets or VE Triplets were present. [facility] 07-20-2023 Telephone encounter Note Call to Madyson to discuss referral to dysautonomia clinic. Informed her that we are unable to provide dysautonomia evaluation at this time. Provided number for [facility] scheduling service. No other needs at this time. [facility] 07-20-2023 Miscellaneous Notes Call to Madyson to discuss referral to dysautonomia clinic. Informed her that we are unable to provide dysautonomia evaluation at this time. Provided number for [facility] scheduling service. No other needs at this time. documented in this encounter [facility] 07-10-2023 Note HNO ID: [id number] Author: Jose Armando Grey, DO Service: ? Author Type: Physician Type: Progress Notes Filed: 07/10/2023 10:08 AM Note Text: [facility] Office Visit Documentation Note [facility] Sports Medicine Orthopaedic and Rheumatologic [place] HISTORY OF PRESENT ILLNESS (HPI) CHIEF COMPLAINT / REASON FOR VISIT SERVICE DATE: July 10, 2023 PCP: No primary care provider on file. Madyson Schmid is here today at request of Dr. Jose Armando Schmid specifically for consultation of my opinion in regards to the chief complaint listed below. Correspondence will be shared today via the [employer] electronic health record or through regular mail, [...] to consider PT or personal computer network analyst. Reaction knee brace Consider [place] toradol, did discuss orthobiologics Follow up: Films prior to visit: Written instructions (see patient instructions) and verbal health education given to patient. Patient verbalizes understanding and agrees with the treatment plan. Jose Armando Grey D.O. [facility] Orthopaedic and Rheumatologic [place], [facility] AND T.E.A.M. Program Team Physician, [facility] Baseball Club Consulting Physician, [place] Martin Nagel, Patrol Lady [phone] [facility] 07-10-2023 History of Present illness Narrative Images from the original note were not included. [facility] Office Visit Documentation Note [facility] Sports Medicine Orthopaedic and Rheumatologic [place] HISTORY OF PRESENT ILLNESS (HPI) CHIEF COMPLAINT / REASON FOR VISIT SERVICE DATE: July 10, 2023 PCP: No primary care provider on file. Madyson Schmid is here today at request of Dr. Jose Armando Schmid specifically for consultation of my opinion in regards to the chief complaint listed below. Correspondence will be shared today via the [employer] electronic health record or through regular mail, [...] pain of right knee (primary encounter diagnosis) (M67.589) Tendinopathy of gluteal region RECOMMENDATION / PLAN: Counseled. Needs to work on gluteal and quad strength as the sole treatment for 3-4 months. Essentially, needs to get moving and work on exercise goals. Admits that she doesn't like PT, as it doesn't work. I've explained timing and expectations. She need to consider PT or personal computer network analyst. Reaction knee brace Consider [place] toradol, did discuss orthobiologics Follow up: Films prior to visit: Written instructions (see patient instructions) and verbal health education given to patient. Patient verbalizes understanding and agrees with the treatment plan. Jose Armando Grey D.O. [facility] Orthopaedic and Rheumatologic [place], [facility] & T.E.A.M. Program Team Physician, [facility] [employer] Consulting Physician, [place] Martin Nagel, Patrol Lady [phone] documented in this encounter [facility] 12-28-2022 History of Present illness Narrative [...] surgery Evaluated by DR Case ([facility] [place]) in 2020 no rheum issue found and [...] Swollen Glands: No documented in this encounter [facility] 07-31-2022 History of Present illness Narrative [...] surgery Evaluated by DR Case ([facility] [place]) in 2020 no rheum issue found and [...] Swollen Glands: No documented in this encounter [facility] 07-10-2022 History of Present illness Narrative [...] she did get a second opinion in [place], and no change in medication was suggested [...] I will defer that to Dr. Maza -[facility] [address] DO Work Phone: 06-12-2022 Note Pre-procedure Verifi cation and Time Out: Pre-Procedure Verification and Time Out: Procedure Locationbedside PRE-PROCEDURE Verificationcompleted TIME OUT - Final Verificationcompleted immediately prior to procedure start General Information: Anesthesia Critical Care: Non-Anesthesia Date/Time of Procedure: 12-Jun-2022 Post-Procedure Diagnosis: syncope Procedure Name: tilt table test Findings: grossly normal anatomy Procedure performed by: sd Viscosity Tester(s): none Estimated Blood Loss (mL): none Specimen: [...] Last Updated: 14-Jun-2022 11:56 by Annalee Maza) [facility] 03-24-2022 History of Present illness Narrative Patient [...] while walking to the bathroom.She will see medical billing specialist in the near future, she had her pulmonary function test which I reviewed, there is concern for chronic asthma, but no reactive airway disease.She has 3 dogs that she had, and 1 cat at home.She is not orthostatic. She is feeling palpitations quite a bit.Results of the pulmonary function test and a Micah of [place] was reviewed. Also reviewed stress test and [...] that, we will have to schedule at [facility], and patient is okay with driving.4. Lifestyle modifications such as regular aerobic activity as tolerated, excessive sodium intake, and possibly low-dose beta-blockers can be tried. If her breathing gets worse on the beta-blockers, then she should stop it. We will decide after seen by pulmonary, and also after the results of culpable test are available. -[facility] Cheek DO Work Phone: [...] while walking to the bathroom.She will see medical billing specialist in the near future, she had her [...] that, we will have to schedule at [facility], and patient is okay with driving.4. Lifestyle modifications such as regular aerobic activity as tolerated, excessive sodium intake, and possibly low-dose beta-blockers can be tried. If her breathing gets worse on the beta-blockers, then she should stop it. We will decide after seen by pulmonary, and also after the results of culpable test are available. [facility] Work Phone: 02-02-2022 Miscellaneous Notes [...] P Mathai, MD documented in this encounter [facility] 01-25-2022 History of Present illness Narrative [...] February Evaluated [place] DR Case ([facility] [place]) in 2020 no rheum issue found and [...] February Evaluated by DR Case ([facility] [place]) in 2020 no rheum issue found and [...] Irvin Hanna MD documented in this encounter [facility] 01-10-2022 Evaluation note Encounter Date Diagnosis Assessment Notes Dec, Skin rash (ICD-10 - R21) Dec, Other Transient recurrent color change attendant the knees and toes I do not [...] will go ahead with her evaluation in [facility]. [facility] Other 01-17-2022 Evaluation note* Encounter Date Diagnosis [...] day as needed for pain and swelling. [facility] 07-01-2021 History of Present illness Narrative* [...] heart murmur and has been transferred to [facility] * There is no family history [...] needed, treatment options, risks, benefits, and imponderables. [employer] lifestyle changes and behavioral modification discussed. All questions answered in detail. Counseling over 50% visit regarding above. Patientappreciative of care. * At the end the office visit, she did report that she will be seeing an system configuration specialist in [place]. We did discuss that she could hold [...] errors as software dictation application being used. -[facility] [address] DO Work Phone: 1(360) 211-514808-25-2020 History of Present illness Narrative* She is [...] exposed to secondhand smoke from her mother. [facility] Flipps DO Work Phone: 1(238) 929-413107-09-2020 History of Present illness Narrative* Patient is [...] brother had to be taken to [facility], and has history of heart murmur. [...] arise, * Sincerely, * Melodie alcaraz MD [facility] Work Phone: [phone]) 300-755907-01-2020 History of Present illness Narrative* Patient is [...] brother had to be taken to [facility], and has history of heart murmur. [...] arise, * Sincerely, * Melodie alcaraz MD [facility] [address] DO Work Phone: [phone] 625-769406-30-2020 History of Present illness Narrative* Patient is [...] brother had to be taken to [facility], and has history of heart murmur. [...] arise, * Sincerely, * Melodie alcaraz MD [place] [address] DO Work Phone: [phone]) 701-330901-01-2008 History general Narrative - Reported* Type Description Date Medical History general health good Surgical History tonsillectomy and adenoidectomy 09/2007 [facility] Other 01-01-2008 History general Narrative - Reported* Type Description Date Medical History general health good Surgical History tonsillectomy and adenoidectomy 09/2007 Surgical History right knee cleaned up scar tiss ue 2020 [facility] Other Chief complaint Narrative - ReportedMADYSON SCHMID is being seen for a cardiovascular evaluation of abnormal test(s) results and dyspnea.[facility] [address] DO Work Phone: Chitq complaint Narrative - ReportedMADYSON SCHMID is being seen for a cardiovascular evaluation of abnormal test(s) results and dyspnea.[facility] Work Phone: Evaluation + Plan note No data available for this section [facility]* Diagnosis Pain and swelling of knee, right- Primary Joint stiffness Stiffness of joint, not elsewhere classified, unspecified site documented [facility] noteNo assessment information availableSelect [facility] Work Phone: Evaluation note* Diagnosis Pain and swelling of knee, right- Primary Joint stiffness Stiffness of joint, not elsewhere classified, unspecified site Inflammatory arthritis Unspecified inflammatory polyarthropathy documented [facility] encounter [facility] Diagnosis Pain and swelling of knee, right- Primary Joint stiffness Stiffness of joint, not elsewhere classified, unspecified site documented [facility] encounter [facility]* Diagnosis Right knee pain, unspecified chronicity- Primary [facility] Chronic pain of right knee- Primary Tendinopathy of gluteal region Unspecified disorder of synovium, tendon, and bursa documented [facility] encounter [facility]* Diagnosis Orthostatic lightheadedness- Primary Dizziness and giddiness [facility]* Diagnosis POTS (postural orthostatic tachycardia syndrome)- Primary Tachycardia, unspecified [facility] Diagnosis POTS (postural orthostatic tachycardia syndrome)- Primary Tachycardia, unspecified [facility] Diagnosis POTS (postural orthostatic tachycardia syndrome)- Primary Tachycardia, unspecified Near syncope Syncope and collapse documented [facility] encounter [facility]* Diagnosis Second trimester state, incidental 14 weeks gestation of documented in this encounter [facility]* Diagnosis Thumb pain, right- [...] Leg cramping Heartburn documented in this encounter [facility]* Diagnosis Thumb pain, right- [...] syndrome) Unspecified tachycardia documented in this encounter [facility] HealthcareEvaluation [facility]* Diagnosis Thumb pain, right- [...] without complication (CMS/HCC) documented in this encounter [facility]* Diagnosis POTS (postural orthostatic tachycardia syndrome)- Primary Tachycardia, unspecified 23 weeks gestation of state, incidental [facility] Diagnosis Thumb pain, right- Primary [...] exam Routine general medical examination at a [facility] care facility 25 weeks gestation of Second [...] of Heartburn documented [facility] encounter [facility]* Diagnosis Dichorionic diamniotic twin in second trimester- Primary POTS (postural orthostatic tachycardia syndrome) Unspecified tachycardia Asthma during 20 weeks gestation of [facility] Diagnosis Dichorionic diamniotic twin in second trimester- Primary POTS (postural orthostatic tachycardia syndrome) Unspecified tachycardia Asthma during 20 weeks gestation of [facility]* Diagnosis Thumb pain, right- Primary De Quervain's disease (tenosynovitis) Radial styloid tenosynovitis PCOS (polycystic ovarian syndrome) Polycystic ovaries POTS (postural orthostatic tachycardia syndrome) Unspecified tachycardia Tension headache- Primary Encounter for immunization POTS (postural orthostatic tachycardia syndrome) Unspecified tachycardia Well adult exam Routine general medical examination at a health care facility 33 weeks gestation of Third trimester state, incidental documented in this encounter [facility] Healthcare[facility] of [...] heart murmur and had been transferred to [facility] * There is no change in [...] and patient opted to follow-up here at [facility] in [place]. * Zio patch August 2022. All rhythms [...] needed, treatment options, risks, benefits, and imponderables. [employer] lifestyle changes and behavioral modification discussed. All questions answered in detail. Counseling over 50% visit regarding above. Patient appreciative of care. * Grammar * Please excuse grammatical or dictation errors as software dictation application being used. [facility] [address] DO Work Phone: History of Present illness Narrative* The patient states she has been generally stable since the last visit. * Symptoms: denies chest pain at rest, denies exertional chest pain, denies dyspnea, stable fatigue, denies exercise intolerance, stable palpitations, denies edema, denies orthopnea, stable dizziness and stable orthostatic dizziness. * Disease Monitoring: [facility] [address] DO Work Phone: Hospital Discharge instructions No data available for this section [facility] CenterInstructionsNot on filedocumented in this encounter [facility]Not on filedocumented in this encounter [facility]ructionsNot on filedocumented in this encounter [facility]InstructionsNot on filedocumented in this encounter [facility]Not on filedocumented in this encounter [facility] No data available for this section [facility] CenterReason for referral (narrative)* Diagnostic Procedure Only (Routine) - Pending Review Specialty Diagnoses / Procedures Referred By Contac t Referred To Contact XR IMAGING Diagnoses Right knee pain, unspecified chronicity Procedures XR KNEE GENERAL 4V AP BOTH/PA BOTH/LAT/MERC RIGHT RADIOLOGIC EXAM KNEE COMPLETE 4/[place] [address] [place] [address] [place] [id number] Referral ID Status Reason Start Date Expiration Date Visits Requested Visits Authorized [id number] Pending Review Auto-Generat ed Referral 3 08/04/2024 1 1 [facility] for visit Narrativerash knee referral from Cj Jaimes, She gets a funny rash on her knee and toesNorth Pro 3 Games Other Summary Purpose Family History Unknown Family [...] or prosecute any alcohol or drug abuse patient.[facility] the event this information is protected by the Federal Confidentiality of Alcohol and Drug Abuse Patient Records regulations: The Federal rules restrict any use of the information to criminally investigate or prosecute any alcohol or drug abuse patient.[facility] HospitalIn the event this information is protected by the Federal Confidentiality of Alcohol and Drug Abuse Patient Records regulations: The Federal rules restrict any use of the information to criminally investigate or prosecute any alcohol or drug abuse patient.[facility] HospitalIn the event this information is protected by the Federal Confidentiality of Alcohol and Drug Abuse Patient Records regulations: The Federal rules restrict any use of the information to criminally investigate or prosecute any alcohol or drug abuse patient.[facility] HospitalIn the event this information is protected by the Federal Confidentiality of Alcohol and Drug Abuse Patient Records regulations: The Federal rules restrict any use of the information to criminally investigate or prosecute any alcohol or drug abuse patient.[facility] HospitalIn the event this information is protected by the Federal Confidentiality of Alcohol and Drug Abuse Patient Records regulations: The Federal rules restrict any use of the information to criminally investigate or prosecute any alcohol or drug abuse patient.[facility] HospitalIn the event this information is protected by the Federal Confidentiality of Alcohol and Drug Abuse Patient Records regulations: The Federal rules restrict any use of the information to criminally investigate or prosecute any alcohol or drug abuse patient.[facility] HospitalIn the event this information is protected by the Federal Confidentiality of Alcohol and Drug Abuse Patient Records regulations: The Federal rules restrict any use of the information to criminally investigate or prosecute any alcohol or drug abuse patient.[facility] HospitalIn the event this information is protected by the Federal Confidentiality of Alcohol and Drug Abuse Patient Records regulations: The Federal rules restrict any use of the information to criminally investigate or prosecute any alcohol or drug abuse patient.[facility] HospitalIn the event this information is protected by the Federal Confidentiality of Alcohol and Drug Abuse Patient Records regulations: The Federal rules restrict any use of the information to criminally investigate or prosecute any alcohol or drug abuse patient.[facility] HospitalIn the event this information is protected by the Federal Confidentiality of Alcohol and Drug Abuse Patient Records regulations: The Federal rules restrict any use of the information to criminally investigate or prosecute any alcohol or drug abuse patient.[facility] HospitalIn the event this information is protected by the Federal Confidentiality of Alcohol and Drug Abuse Patient Records regulations: The Federal rules restrict any use of the information to criminally investigate or prosecute any alcohol or drug abuse patient.[facility] HospitalIn the event this information is protected by the Federal Confidentiality of Alcohol and Drug Abuse Patient Records regulations: The Federal rules restrict any use of the information to criminally investigate or prosecute any alcohol or drug abuse patient.[facility] Reason for Visit (unrecogniz ed section and content) Reason Comments New Patient Reason Comments Orders Reason Comments Follow Up Reason Comments 4 Month Follow Up Reason Onset Date Comments Referral Follow-up 07/20/2023 Reason Comments Procedure Reason Comments New Patient Consult Reason Comments Follow Up Reason Comments POTS Reason Comments Routine Visit Reason Comments Well Women Visit Routine Visit STI Screening Reason Comments Amenorrhea Reason Comments [place] POTS INFORMATION SOURCE (unrecogn ized section and content) DATE CREATED AUTHOR 02/03/2022 [facility] DATE CREATED AUTHOR AUTHOR'S ORGANIZ ATION 06/24/2022 [facility] DATE CREATED AUTHOR AUTHOR'S ORGANIZ ATION 09/15/2022 [employer] DATE CREATED AUTHOR AUTHOR'S ORGANIZ ATION 03/16/2023 [facility] DATE CREATED AUTHOR AUTHOR'S ORGANIZ ATION 06/15/2023 [facility] [place] DATE CREATED AUTHOR AUTHOR'S ORGANIZ ATION 07/11/2023 [facility] DATE CREATED AUTHOR AUTHOR'S ORGANIZ ATION 03/15/2024 [facility] DATE CREATED AUTHOR AUTHOR'S ORGANIZ ATION 04/15/2024 [facility] DATE CREATED AUTHOR AUTHOR'S ORGANIZ ATION 07/11/2024 [facility] DATE CREATED AUTHOR AUTHOR'S ORGANIZ ATION 07/26/2024 [facility] DATE CREATED AUTHOR AUTHOR'S ORGANIZ ATION 09/05/2024 [facility] DATE CREATED AUTHOR AUTHOR'S ORGANIZ ATION 11/06/2024 [facility] DATE CREATED AUTHOR AUTHOR'S ORGANIZ ATION 11/11/2024 [facility] DATE CREATED AUTHOR AUTHOR'S ORGANIZ ATION 11/14/2024 [facility] Care Teams (unrecognized sec tion and content) Team Status: Inactive Member Role Status Dates Ibis Renteria FOURTH GRADE TEACHER-C Primary Care Provider Activ e Guerita Davidson NP-C Attending Provider Active Team Status: Inactive Member Role Status Dates Ibis Renteria FOURTH GRADE TEACHER-C Primary Care Provider Activ e Melodie Alcaraz MD Attending Provider Active Team Status: Inactive Member Role Status Dates Ibis Renteria FOURTH GRADE TEACHER-C Primary Care Provider Activ e Melodie Alcaraz MD Attending Provider Active Álvaro Osborn MD Referring Provider Active Team Status: Active Member Role Status Dates Ibis Renteria FOURTH GRADE TEACHER-C Primary Care Provider Activ e Team Status: Inactive Member Role Status Dates Ibis Renteria FOURTH GRADE TEACHER-C Primary Care Provider Activ e Dyllan Pearce APRN Emergency Provider Active Team Status: Inactive Member Role Status Dates Ibis Renteria FOURTH GRADE TEACHER-C Primary Care Provider Activ e Christina Perez APRN Attending Provider Active Team Status: Inactive Member Role Status Dates Ibis Renteria FOURTH GRADE TEACHER-C Primary Care Provider Activ e Carlitos Nguyen Jr, DO Attending Provider Active Radius Grinder Relationship Specialty Start Date End Date Ibis Renteria CNP [address] [place] [address] PCP - General Nurse Practitioner 07/09/23 Radius Grinder Relationship Specialty Start Date End Date Ibis Renteria CNP [address] [place] [address] PCP - General Nurse Practitioner 07/09/23 Team Status: Inactive Member Role Status Dates Ibis Renteria , FOURTH GRADE TEACHER-C Primary Care Provider Activ venita Martino , DO Emergency Provider Active Team Status: Inactive Member Role Status Dates Ibis Renteria , FOURTH GRADE TEACHER-C Primary Care Provider Activ venita Barnes , DO [facility] Attending Provider Active Radius Grinder Relationship Specialty Start Date End Date Jb Mandujano MD [address] [facility] [address] [place] [address] PCP - General Family Medicine 05/20/24 Osei Malik DO [address] [place] [address] Referring Physician Obstetrics and Gynecology 06/05/24 Flori Gil PA [address] [place] [address] Physician Viscosity Tester Obstetrics and Gynecology 06/05/24 Radius Grinder Relationship Specialty Start Date End Date Jb Mandujano MD [address] [facility] [address] [place] [address] PCP - General Family Medicine 05/20/24 Osei Malik, [address] [place] [address] Referring Physician Obstetrics and Gynecology 06/05/24 Flori Gil PA [address] [place] [address] Physician Viscosity Tester Obstetrics and Gynecology 06/05/24 Radius Grinder Relationship Specialty Start Date End Date Jb Mandujano MD [address] [facility] [address] [place] [address] PCP - General Family Medicine 05/20/24 Osei Malik, DO [address] [place] [address] Referring Physician Obstetrics and Gynecology 06/05/24 Flori Gil PA [address] [place] [address] Physician Viscosity Tester Obstetrics and Gynecology 06/05/24 Radius Grinder Relationship Specialty Start Date End Date Jb Mandujano MD [address] [facility] [address] [place] [address] PCP - General Family Medicine 05/20/24 Osei Malik, DO [address] [place] [address] Referring Physician Obstetrics and Gynecology 06/05/24 Flori Gil PA [address] [place] [address] Physician Viscosity Tester Obstetrics and Gynecology 06/05/24 Radius Grinder Relationship Specialty Start Date End Date Jb Mandujano MD [address] [facility] [address] [place] [address] PCP - General Family Medicine 05/20/24 Osei Malik, DO [address] [place] [address] Referring Physician Obstetrics and Gynecology 06/05/24 Flori Gil PA [address] [place] [address] Physician Viscosity Tester Obstetrics and Gynecology 06/05/24 Radius Grinder Relationship Specialty Start Date End Date Jb Mandujano MD [address] [facility] [address] [place] [address] PCP - General Family Medicine 05/20/24 Osei Malik DO [address] [place] [address] Referring Physician Obstetrics and Gynecology 06/05/24 Flori Gil PA [address] [place] [address] Physician Viscosity Tester Obstetrics and Gynecology 06/05/24 Radius Grinder Relationship Specialty Start Date End Date Jb Mandujano MD [address] [facility] [address] [place] [address] PCP - General Family Medicine 05/20/24 Osei Malik DO [address] [place] [address] Referring Physician Obstetrics and Gynecology 06/05/24 Flori Gil PA [address] [place] [address] Physician Viscosity Tester Obstetrics and Gynecology 06/05/24 Radius Grinder Relationship Specialty Start Date End Date Jb Mandujano MD [address] [facility] [address] [place] [address] PCP - General Family Medicine 05/20/24 Osei Malik DO [address] [place] [address] Referring Physician Obstetrics and Gynecology 06/05/24 Flori Gil PA [address] [place] [address] Physician Viscosity Tester Obstetrics and Gynecology 06/05/24 Radius Grinder Relationship Specialty Start Date End Date Jb Mandujano MD [address] [facility] [address] [place] [address] PCP - General Family Medicine 05/20/24 Osei Malik DO [address] [place] [address] Referring Physician Obstetrics and Gynecology 06/05/24 Flori Gil PA [address] [place] [address] Physician Viscosity Tester Obstetrics and Gynecology 06/05/24 Radius Grinder Relationship Specialty Start Date End Date Jb Mandujano MD [address] [facility] [address] [place] [address] PCP - General Family Medicine 05/20/24 Osei Malik DO [facility] [place] [address] Referring Physician Obstetrics and Gynecology 06/05/24 Flori Gil PA [address] [place] [address] Physician Viscosity Tester Obstetrics and Gynecology 06/05/24 Radius Grinder Relationship Specialty Start Date End Date Jb Mandujano MD [address] [facility] [address] [place] [address] PCP - General Family Medicine 05/20/24 Radius Grinder Relationship Specialty Start Date End Date Jb Mandujano MD [address] [facility] [address] [place] [address] PCP - General Family Medicine 05/20/24 Radius Grinder Relationship Specialty Start Date End Date Jb Mandujano MD [address] [facility] [address] [place] [address] PCP - General Family Medicine 05/20/24 Radius Grinder Relationship Specialty Start Date End Date Jb Mandujano MD [address] [facility] [address] [place] [address] PCP - General Family Medicine 05/20/24 Radius Grinder Relationship Specialty Start Date End Date Jb Mandujano MD [address] [facility] [address] [place] [address] PCP - General Family Medicine 05/20/24 Osei Malik DO [address] [place] [address] Referring Physician Obstetrics and Gynecology 06/05/24 Flori Gil PA [address] [place] [address] Physician Viscosity Tester Obstetrics and Gynecology 06/05/24 Radius Grinder Relationship Specialty Start Date End Date Jb Mandujano MD [address] [place] [address] PCP - General Family Medicine 05/20/24 Osei Malik, [address] [place] [address] Referring Physician Obstetrics and Gynecology 06/05/24 Flori Gil PA [address] [place] [address] Physician Viscosity Tester Obstetrics and Gynecology 06/05/24 Radius Grinder Relationship Specialty Start Date End Date Jb Mandujano MD [address] [facility] [address] [place] [address] PCP - General Family Medicine 05/20/24 Osei Malik DO [address] [place] [address] Referring Physician Obstetrics and Gynecology 06/05/24 Flori Gil PA [facility] [place] [address] Physician Viscosity Tester Obstetrics and Gynecology 06/05/24 Radius Grinder Relationship Specialty Start Date End Date Jb Mandujano MD [address] [place] [address] PCP - General Family Medicine 05/20/24 Osei Malik DO [facility] [place] [address] Referring Physician Obstetrics and Gynecology 06/05/24 Flori Gil PA [facility] [place] [address] Physician Viscosity Tester Obstetrics and Gynecology 06/05/24 Radius Grinder Relationship Specialty Start Date End Date Ander Boateng MD [address] [place] [address] PCP - General 11/30/17 Team Status: Inactive Member Role Status Dates Osei Malik DO Attending Provider Active Start : September 25, 2024 End: September 25, 2024 Radius Grinder Relationship Specialty Start Date End Date Jb Mandujano MD [address] [place] [address] PCP - General Family Medicine 05/20/24 Osei Malik, DO [address] [place] [address] Referring Physician Obstetrics and Gynecology 06/05/24 Flori Gil PA [address] [place] [address] Physician Viscosity Tester Obstetrics and Gynecology 06/05/24 Radius Grinder Relationship Specialty Start Date End Date Jb Mandujano MD [address] [facility] [address] [place], [place] [address] PCP - General Family Medicine 05/20/24 Osei Malik, DO [facility] [place] [address] Referring Physician Obstetrics and Gynecology 06/05/24 Flori Gil PA [address] [place] [address] Physician Viscosity Tester Obstetrics and Gynecology 06/05/24 Radius Grinder Relationship Specialty Start Date End Date Ander Boateng MD [address] [place] [address] PCP - General 11/30/17 Radius Grinder Relationship Specialty Start Date End Date Jb Mandujano MD [address] [facility] [address] [place] [address] PCP - General Family Medicine 05/20/24 Osei Malik, DO [address] [place] [address] Referring Physician Obstetrics and Gynecology 06/05/24 Flori Gil PA [address] [place] [address] Physician Viscosity Tester Obstetrics and Gynecology 06/05/24 Radius Grinder Relationship Specialty Start Date End Date Jb Mandujano MD [address] [facility] [address] [place] [address] PCP - General Family Medicine 05/20/24 Osei Malik, DO [address] [place] [address] Referring Physician Obstetrics and Gynecology 06/05/24 Flori Gil PA [address] [place] [address] Physician Viscosity Tester Obstetrics and Gynecology 06/05/24 Radius Grinder Relationship Specialty Start Date End Date Jb Mandujano MD [address] [address] PCP - General Family Medicine 05/20/24 Osei Malik, DO [address] [place] [address] Referring Physician Obstetrics and Gynecology 06/05/24 Flori Gil PA [address] [place] [address] Physician Viscosity Tester Obstetrics and Gynecology 06/05/24 Radius Grinder Relationship Specialty Start Date End Date Ander Boateng MD [address] [place] [address] PCP - General 11/30/17 Radius Grinder Relationship Specialty Start Date End Date Ander Boateng MD [address] [place] [address] PCP - General 11/30/17 Radius Grinder Relationship Specialty Start Date End Date Ander Boateng MD [address] [place] [address] PCP - General 11/30/17 Radius Grinder Relationship Specialty Start Date End Date Ander Boateng MD [address] [place] [address] PCP - General 11/30/17 Radius Grinder Relationship Specialty Start Date End Date Jb Mandujano MD [address] [place] [address] PCP - General Family Medicine 05/20/24 Osei Malik DO [address] [place] [address] Referring Physician Obstetrics and Gynecology 06/05/24 Flori Gil PA [address] [place], [place] [address] Physician Viscosity Tester Obstetrics and Gynecology 06/05/24 Goals (unrecognized section [...] BE BASED ON THE PRIMARY CLINICAL RECORDS. [facility] [employer] [facility]. provides no warranty or guarantee of the accuracy or completeness of information in this document.
[2024-11-15 13:03] VITALS: BP 124/92; PULSE 96; TEMP 36.3
== END 2024-11-15 13:36 | disposition home or self-care (01) ==
LOC: FBCO 00:17 → FBC 12:55
PROVIDERS: PCP Family Medicine; Visit Provider Obstetrics & Gynecology
DX: O30.043 Twin pregnancy, dichorionic/diamniotic, third trimester (principal); Z3A.34 34 weeks gestation of pregnancy
CPT/HCPCS: 59025

== ENCOUNTER 2024-11-17 16:48 | Observation (INO) | payer OTHER, MEDICAID, SELFPAY ==
[2024-11-17 17:16] VITALS: BP 135/75; PULSE 104
--- NOTE | 2024-11-17 17:26 | US_ITS ---
[address] [address] Patient Name: CJ MAI MRN: [id number] date: 2000 Sex: F Assigned Patient Location: [facility] Current Patient Location: [facility] Accession/Order Number: [id number] Exam Date: 11/17/2024 18:58 Report Date: 11/17/2024 19:04 At the request of: SHELBI WILLIAM DO Procedure: US OB placenta US OB placenta 11/17/2024 6:44 PM SIGNS AND SYMPTOMS: ^Fall, twin COMPARISON: None. TECHNIQUE: Limited pelvic ultrasound using transvesical sonography. FINDINGS: There is a live twin . Fetus A: The placenta is anteriorly located and is age-appropriate/grade 1 in appearance. There is an estimated heart rate of 149 bpm. Fetus is in cephalic presentation. Estimated gestational age is 34 weeks and 2 days. Fetus B: The placenta is suboptimally visualized due to positioning. The visualized portions appear to be grade 1/normal. There is an estimated heart rate of 144 bpm. The fetus is in cephalic presentation. Estimated gestational age is 34 weeks and 2 days. US/US OB placenta IMPRESSION: Live twin intrauterine . Fetus A and fetus B show normal placental anatomy (grade 1) although the placenta for fetus B is partially obscured. Impression dictated by: Good Ho M.D.11/17/2024 7:04 PM Dictation Location: [place] [address] Electronically authenticated by: [id number] Y Date: 11/17/2024 19:04
--- NOTE | 2024-11-17 17:27 | US_ITS ---
[address] [address] Patient Name: CJ MAI MRN: [id number] date: 2000 Sex: F Assigned Patient Location: [facility] Current Patient Location: Accession/Order Number: [id number] Exam Date: 11/18/2024 11:00 Report Date: 11/18/2024 11:08 At the request of: SHELBI WILLIAM DO Procedure: US OB BPP w non-stress CLINICAL INFORMATION: Twin . Patient fell today. BIOPHYSICAL PROFILE - FETUS A: COMPARISON: 11/12/2024 TECHNIQUE: There is a twin with fetus A on the left in cephalic presentation. The reported gestational age is 34 weeks 2 days. The heart rate [id number] beats per minute. FINDINGS: TONE: 1 or more episodes of activity extension and flexion of extremity or opening and closing of the hand [Y] 2/2 GROSS BODY MOVEMENTS: 3 or more discrete body or limb movements [Y] 2/2 BREATHING MOVEMENTS: 1 or more episodes of breathing lasting at least 30 seconds [Y] 2/2 MARY: A single deepest vertical pocket of amniotic fluid greater than 2 cm [Y] 2/2 MARY: 16.5 cm. This is in normal range. Total score: 8/8 US/ OB BPP w non-stress IMPRESSION: NORMAL BIOPHYSICAL PROFILE FOR FETUS A. BIOPHYSICAL PROFILE - FETUS B: Comparison: 11/12/2024 Fetus B is on the right and also in cephalic presentation. The reported age is 34 weeks 2 days. The heart rate [id number] beats per minute. FINDINGS: TONE: 1 or more episodes of activity extension and flexion of extremity or opening and closing of the hand [Y] 2/2 GROSS BODY MOVEMENTS: 3 or more discrete body or limb movements [Y] 2/2 BREATHING MOVEMENTS: 1 or more episodes of breathing lasting at least 30 seconds [Y] 2/2 MARY: A single deepest vertical pocket of amniotic fluid greater than 2 cm [Y] 2/2 MARY: 16.5 cm . This is in normal range. Total score: 8/8 IMPRESSION: NORMAL BIOPHYSICAL PROFILE FOR FETUS B. Impression dictated by: Camilla Damon M.D.11/18/2024 11:08 AM Dictation Location: [place] [address] Electronically authenticated by: [id number] Y Date: 11/18/2024 11:08
--- NOTE | 2024-11-17 17:28 | US_ITS ---
[address] [address] Patient Name: CJ MAI MRN: [id number] date: 2000 Sex: F Assigned Patient Location: [facility] Current Patient Location: [facility] Accession/Order Number: [id number] Exam Date: 11/18/2024 11:00 Report Date: 11/18/2024 11:08 At the request of: SHELBI WILLIAM DO Procedure: US OB BPP w non-stress CLINICAL INFORMATION: Twin . Patient fell today. BIOPHYSICAL PROFILE - FETUS A: COMPARISON: 11/12/2024 TECHNIQUE: There is a twin with fetus A on the left in cephalic presentation. The reported gestational age is 34 weeks 2 days. The heart rate [id number] beats per minute. FINDINGS: TONE: 1 or more episodes of activity extension and flexion of extremity or opening and closing of the hand [Y] 2/2 GROSS BODY MOVEMENTS: 3 or more discrete body or limb movements [Y] 2/2 BREATHING MOVEMENTS: 1 or more episodes of breathing lasting at least 30 seconds [Y] 2/2 MARY: A single deepest vertical pocket of amniotic fluid greater than 2 cm [Y] 2/2 MARY: 16.5 cm. This is in normal range. Total score: 8/8 US/US OB BPP w non-stress IMPRESSION: NORMAL BIOPHYSICAL PROFILE FOR FETUS A. BIOPHYSICAL PROFILE - FETUS B: Comparison: 11/12/2024 Fetus B is on the right and also in cephalic presentation. The reported age is 34 weeks 2 days. The heart rate [id number] beats per minute. FINDINGS: TONE: 1 or more episodes of activity extension and flexion of extremity or opening and closing of the hand [Y] 2/2 GROSS BODY MOVEMENTS: 3 or more discrete body or limb movements [Y] 2/2 BREATHING MOVEMENTS: 1 or more episodes of breathing lasting at least 30 seconds [Y] 2/2 MARY: A single deepest vertical pocket of amniotic fluid greater than 2 cm [Y] 2/2 MARY: 16.5 cm . This is in normal range. Total score: 8/8 IMPRESSION: NORMAL BIOPHYSICAL PROFILE FOR FETUS B. Impression dictated by: Camilla Damon M.D.11/18/2024 11:08 AM Dictation Location: [place] [address] Electronically authenticated by: [id number] Y Date: 11/18/2024 11:08
--- NOTE | 2024-11-17 18:05 | PC.NURSE ---
Addendum entered by Brittni Mariscal 11/17/24 18:22: BPP/Placental ultrasounds complete. Baby A MARY 3.4x2.4cm BPP 05/01 Baby B MARY 6.7x4.0cm BPP 05/01. Both placentas WNL per machine tech. Original Note: BPP complete,
== END 2024-11-17 18:28 | disposition home or self-care (01) ==
PROVIDERS: Admitting Provider Obstetrics & Gynecology; PCP Family Medicine; Visit Provider Obstetrics & Gynecology
DX: Z04.3 Encounter for examination and observation following other accident (principal); O30.003 Twin pregnancy, unspecified number of placenta and unspecified number of amniotic sacs, third trimester; Z3A.34 34 weeks gestation of pregnancy; W18.39XA Other fall on same level, initial encounter
CPT/HCPCS: 76815; 76818; G0378; G0379

== ENCOUNTER 2024-11-19 00:27 | Outpatient (OUT) | payer OTHER, MEDICAID, SELFPAY ==
--- OUTSIDE RECORDS SUMMARY | 2024-11-19 00:32 | XMS_ITS | CCD ---
Author Organization [facility] Care Team Providers Care Electric Organ Checker Name Role Phone Unavailable Primary Care Provider Unavailsoniya e Christina Pearce Unavailable Ok Mckeon Unavailable Ibis Renteria Unavailable Unavailable Unavailable CARLOS Renteria Primary Care Provider MD Melodie Alcaraz Attending Provider MD Álvaro Osborn Referring Provider CARLOS Davidson Attending Provider [phone] JOHNNY Pearce Emergency Provider Link, Dr. Annalee Torres Attending Unavailab celine Alcaraz, Dr. Sewell Referring Unavailable Myra, Ms. Ibis Winter Primary Care Unavail able Link, Dr. Annalee Torres Admitting Unavailab le Unavailable Primary Care Provider Unavailsoniya e Unavailable Primary Care Provider UnavailCARLOS Salas Primary Care Provider JOHNNY Perez Attending Provider [phone] CHAN MUÑIZ Attending UnavailIBIS Salas Referring Unavailable [...] Myra Ibis GOODSON Primary Care Provider Myra, PORTRAIT STUDIO PHOTOGRAPHER-C Ibis Winter Primary Care Provider DO Haris Martino Emergency Provider DO Nam Barnes Attending Provider JB MANDUJANO Primary Care Physician Rinkes, Celeste Admitting Unavailable Rinkes, Celeste Attending Unavailable Jocelin FELIX Attending Unavailable Mae, MAINTENANCE MECHANIC 2ND SHIFT Krista L Attending Unavailable Mae, MAINTENANCE MECHANIC 2ND SHIFT Krista L Attending Unavailable Unavailable Primary Care Provider Unavailabl e Rinkes, Celeste Attending Unavailable Rinkes, Celeste Admitting Unavailable Rinkes, Celeste Attending Unavailable Rinkes, Celeste Admitting Unavailable Jb Mandujano MD Primary Care Provider Osei Malik DO Unavailable Flori Sam Unavailable [facility], Nam Brewer Attending Unavailable [facility] Admitting Unavailable Ibis Renteria Primary Care Unavailable Rinradha, Celeste Attending Unavailable Rinkes, Celeste Admitting Unavailable SANTIAGO, AURORA Attending Unavailable SANTIAGO, AURORA Referring Unavailable SANTIAGO, AURORA Referring Unavailable SANTIAGO, AURORA Referring Unavailable SANTIAGO, AURORA Referring Unavailable NOBLE, JYOTI Attending Unavailable NOBLE, JYOTI Attending Unavailable JOIE SEAMAN Attending Unavailable NOBLE, JYOTI Attending Unavailable [facility] Primary Care Provider Helena DO, Osei Attending Provider Helena, Osei Attending Unavailable Helena, Osei Admitting Unavailable HELENA, OSEI Attending Unavailable HELENA, OSEI Attending Unavailable HELENA, OSEI Attending Unavailable RINRADHA, CELESTE E Attending Unavailable TELLO, CELESTE E Attending Unavailable JB MANDUJANO Attending [...] / oxyCODONE; Translations: [acetaminophen-o xycodone] Drug Allergy [facility] [place] Comment on above: no narcotics, GI ups et Chlorhexidine (1 source) Chlorhexidine; Translations: [chlorhexidine topical] Drug Allergy Itching [facility] Corticosteroids (1 source) predniSONE; Translations: [prednisone] Drug Allergy [facility] (15 sources) Morphinan opioid; Translations: [OPIOIDS - MORPHINE ANALOGUES] Propensity to adverse reactions to drug 01-26-20 Other: See Comments [facility] (20 sources) predniSONE; Translations: [predniSONE] Drug Allergy 01-26-20 Other: See Comments, Dizziness [facility] (20 sources) prednisoLONE; Translations: [prednisolone] Drug Allergy 01-11-20 22 GI Disturbance [facility] [employer] Other (15 sources) Fludrocortisone; Translations: [Florinef TABS] Drug Allergy Nausea [facility] [address] DO Work Phone: (20 sources) Midodrine; Translations: [midodrine] Drug Allergy 08-13-20 23 GI bleeding [facility] (3 sources) Acetaminophen / oxyCODONE; Translations: [Percocet] Drug Allergy [facility] (4 sources) Chlorhexidine; Translations: [chlorhexidine topical] Drug Allergy Itching [facility] (7 sources) Acetaminophen / oxyCODONE; Translations: [acetaminophen-o xycodone] Drug Allergy 07-07-20 24 GI Disturbance [facility] Comment on above: no narcotics, GI ups et (20 sources) Acetaminophen / oxyCODONE; Translations: [OXYCODONE-ACETA MINOPHEN] Drug Allergy 02-26-20 24 [facility] (20 sources) Chlorhexidine; Translations: [CHLORHEXIDINE] Drug Allergy 02-21-20 23 Itching [facility] Work Phone: (20 sources) Fludrocortisone; Translations: [FLUDROCORTISONE ] Drug Allergy 07-26-20 22 Nausea [facility] (20 sources) Prednisone Allergy to substance 02-18-20 23 Dizziness [facility] (1 source) predniSONE Drug Allergy 06-08-20 23 [facility] Rep[facility] Medications Current Medications Medication Drug Class(es) Dates Sig (Normalized) Sig (Original) [id number] 200 actuat albuterol 0.09 mg/actuat metered dose [...] this medication. 14 tablet 08/07/2024 08/14/2024 Active [place] (No Known Home Meds) (1 source) Start: [place] (No Known Home Meds) Active June 08, [...] Start: 08-01-2022 take 1 capsule by mo [facility] three times daily Droxidopa 100 [...] Facility US OB BPP W NON-STRESS on 11-18-[address] [address] Ultrasound Report Signed Patient: PRENATT,MADYSON M MR#: [id number] : 2000 Acct:[id number] Age/Sex: 23 / F ADM Date: Loc: [facility] 255-[address]: Osei Malik D.O. Ordering Physician: Osei Malik D.O. Date of Service: 11/17/24 Procedure(s): US OB BPP w non-stress Accession Number(s): [id number] cc: JB MANDUJANO ; Osei Malik D.O. [place] [id number] Patient Name: MADYSON MAI MRN: [facility]:[id number] date: 2000 Sex: F Assigned Patient Location: [facility] Current Patient Location: [facility] Accession/Order Number: [id number] Exam Date: 11/18/2024 11:00 Report Date: 11/18/2024 11:08 At the request of: OSEI MALIK DO Procedure: US OB BPP w non-stress CLINICAL INFORMATION: Twin . Patient fell today. BIOPHYSICAL PROFILE - FETUS A: COMPARISON: 11/12/2024 TECHNIQUE: There is a twin with fetus A on the left in cephalic presentation. The reported gestational age is 34 weeks 2 days. The heart rate [id number] beats per minute. FINDINGS: TONE: 1 or more episodes of activity extension and flexion of extremity or opening and closing of the hand [Y] 2/2 GROSS BODY MOVEMENTS: 3 or more discrete body or limb movements [Y] 2/2 BREATHING MOVEMENTS: 1 or more episodes of breathing lasting at least 30 seconds [Y] 2/2 MARY: A single deepest vertical pocket of amniotic fluid greater than 2 cm [Y] 2/2 MARY: 16.5 cm. This is in normal range. Total score: 8/8 US/US OB BPP w non-stress IMPRESSION: NORMAL BIOPHYSICAL PROFILE FOR FETUS A. BIOPHYSICAL PROFILE - FETUS B: Comparison: 11/12/2024 Fetus B is on the right and also in cephalic presentation. The reported age is 34 weeks 2 days. The heart rate [id number] beats per minute. FINDINGS: TONE: 1 or more episodes of activity extension and flexion of extremity or opening and closing of the hand [Y] 2/2 GROSS BODY MOVEMENTS: 3 or more discrete body or limb movements [Y] 2/2 BREATHING MOVEMENTS: 1 or more episodes of breathing lasting at least 30 seconds [Y] 2/2 MARY: A single deepest vertical pocket of amniotic fluid greater than 2 cm [Y] 2/2 MARY: 16.5 cm . This is in normal range. Total score: 8/8 IMPRESSION: NORMAL BIOPHYSICAL PROFILE FOR FETUS B. Impression dictated by: Camilla Damon M.D.11/18/2024 11:08 AM Dictation [facility] Electron[facility] authenticated by: [id number] Y Date: 11/18/2024 11:08 Dictated By: Camilla Damon M.D. Signed By: 11/18/24 1111 DD/ 1108 TD/TT: Director Geophysical Laboratory: [facility] Radiology, Radiologi MD billy - 11/18/2024 [place] [address] Ultrasound Report Signed Patient: MADYSON MAI MR#: [id number] : 2000 Acct:[id number] Age/Sex: 23 / F ADM Date: Loc: [facility] 255-[address]: Osei Malik D.O. Ordering Physician: Osei Malik D.O. Date of Service: 11/17/24 Procedure(s): US OB BPP w non-stress Accession Number(s): [id number] cc: JB MANDUJANO ; Osei Malik D.O. The [place] [address] Patient Name: MADYSON MAI MRN: [facility]:[id number] date: 2000 Sex: F Assigned Patient Location: [facility] Current Patient Location: [facility] Accession/Order Number: [id number] Exam Date: 11/18/2024 11:00 Report Date: 11/18/2024 11:08 At the request of: OSEI MALIK DO Procedure: US OB BPP w non-stress CLINICAL INFORMATION: Twin . Patient fell today. BIOPHYSICAL PROFILE - FETUS A: COMPARISON: 11/12/2024 TECHNIQUE: There is a twin with fetus A on the left in cephalic presentation. The reported gestational age is 34 weeks 2 days. The heart rate [id number] beats per minute. FINDINGS: TONE: 1 or more episodes of activity extension and flexion of extremity or opening and closing of the hand [Y] 2/2 GROSS BODY MOVEMENTS: 3 or more discrete body or limb movements [Y] 2/2 BREATHING MOVEMENTS: 1 or more episodes of breathing lasting at least 30 seconds [Y] 2/2 MARY: A single deepest vertical pocket of amniotic fluid greater than 2 cm [Y] 2/2 MARY: 16.5 cm. This is in normal range. Total score: 8/8 / OB BPP w non-stress IMPRESSION: NORMAL BIOPHYSICAL PROFILE FOR FETUS A. BIOPHYSICAL PROFILE - FETUS B: Comparison: 11/12/2024 Fetus B is on the right and also in cephalic presentation. The reported age is 34 weeks 2 days. The heart rate [id number] beats per minute. FINDINGS: TONE: 1 or more episodes of activity extension and flexion of extremity or opening and closing of the hand [Y] 2/2 GROSS BODY MOVEMENTS: 3 or more discrete body or limb movements [Y] 2/2 BREATHING MOVEMENTS: 1 or more episodes of breathing lasting at least 30 seconds [Y] 2/2 MARY: A single deepest vertical pocket of amniotic fluid greater than 2 cm [Y] 2/2 MARY: 16.5 cm . This is in normal range. Total score: 8/8 IMPRESSION: NORMAL BIOPHYSICAL PROFILE FOR FETUS B. Impression dictated by: Camilla Damon M.D.11/18/2024 11:08 AM Dictation Location: [place] [address] Electronically authenticated by: [id number] Y Date: 11/18/2024 11:08 Dictated By: Camilla Damon M.D. Signed By: 11/18/24 1111 DD/ 1108 TD/TT: Director Geophysical Laboratory: [facility] Radiology Study observation (narrative) [facility] OB BPP W NON-STRESS Ordered By: Radiologist Radiology on 11-18-2024 [facility] [employer] Work Phone: US OB PLACENTAon 11-17-2024 [place] [address] Ultrasound Report Signed Patient: MADYSON MAI MR#: [id number] : 2000 Acct:[id number] Age/Sex: 23 / F ADM Date: Loc: [facility] 255-[address]: Osei Malik D.O. Ordering Physician: Osei Malik D.O. Date of Service: 11/17/24 Procedure(s): US OB placenta Accession Number(s): [id number] cc: JB MANDUJANO ; Osei Malik D.O. [place] [id number] Patient Name: MADYSON MAI MRN: [id number] date: 2000 Sex: F Assigned Patient Location: [facility] Current Patient Location: [facility] Accession/Order Number: [id number] Exam Date: 11/17/2024 18:58 Report Date: 11/17/2024 19:04 At the request of: OSEI MALIK DO Procedure: US OB placenta US OB placenta 11/17/2024 6:44 PM SIGNS AND SYMPTOMS: Fall, twin COMPARISON: None. TECHNIQUE: Limited pelvic ultrasound using transvesical sonography. FINDINGS: There is a live twin . Fetus A: The placenta is anteriorly located and is age-appropriate/grade 1 in appearance. There is an estimated heart rate of 149 bpm. Fetus is in cephalic presentation. Estimated gestational age is 34 weeks and 2 days. Fetus B: The placenta is suboptimally visualized due to positioning. The visualized portions appear to be grade 1/normal. There is an estimated heart rate of 144 bpm. The fetus is in cephalic presentation. Estimated gestational age is 34 weeks and 2 days. US/US OB placenta IMPRESSION: Live twin intrauterine . Fetus A and fetus B show normal placental anatomy (grade 1) although the placenta for fetus B is partially obscured. Impression dictated by: Good Ho M.D.11/17/2024 7:04 PM Dictation Location: [place] [address] Electronically authenticated by: [id number] Y Date: 11/17/2024 19:04 Dictated By: Good Ho M.D. Signed By: 11/17/241905 DD/ 03 TD/TT: Director Geophysical Laboratory: [facility] Radiology, Radiologyelitza cervantes MD - 11/17/2024 [place] [address] Ultrasound Report Signed Patient: MADYSON MAI MR#: [id number] : 2000 Acct:[id number] Age/Sex: 23 / F ADM Date: Loc: [facility] 255-[address]: Osei Malik D.O. Ordering Physician: Osei Malik D.O. Date of Service: 11/17/24 Procedure(s): US OB placenta Accession Number(s): [id number] cc: JB MANDUJANO ; Osei Malik D.O. [place] [address] Patient Name: MADYSON MAI MRN: [facility]:[id number] date: 2000 Sex: F Assigned Patient Location: [facility] Current Patient Location: [facility] Accession/Order Number: [id number] Exam Date: 11/17/2024 18:58 Report Date: 11/17/2024 19:04 At the request of: OSEI MALIK DO Procedure: US OB placenta US OB placenta 11/17/2024 6:44 PM SIGNS AND SYMPTOMS: Fall, twin COMPARISON: None. TECHNIQUE: Limited pelvic ultrasound using transvesical sonography. FINDINGS: There is a live twin . Fetus A: The placenta is anteriorly located and is age-appropriate/grade 1 in appearance. There is an estimated heart rate of 149 bpm. Fetus is in cephalic presentation. Estimated gestational age is 34 weeks and 2 days. Fetus B: The placenta is suboptimally visualized due to positioning. The visualized portions appear to be grade 1/normal. There is an estimated heart rate of 144 bpm. The fetus is in cephalic presentation. Estimated gestational age is 34 weeks and 2 days. US/US OB placenta IMPRESSION: Live twin intrauterine . Fetus A and fetus B show normal placental anatomy (grade 1) although the placenta for fetus B is partially obscured. Impression dictated by: Good Ho M.D.11/17/2024 7:04 PM Dictation Location: [place] [address] Electronically authenticated by: [id number] Y Date: 11/17/2024 19:04 Dictated By: Good Ho M.D. Signed By: 11/17/241905 DD/ 03 TD/TT: Director Geophysical Laboratory: [facility] Radiology Study observation (narrative) [facility] US OB PLACENTAOrdered By: Ra merritt Radiology on 11-17-2024 [facility] Work Phone: US OB BPP W NON-STRESS on 11-13-2024 [place] [address] Ultrasound Report Signed Patient: MADYSON MAI MR#: [id number] : 2000 Acct:[id number] Age/Sex: 23 / F ADM Date: 11/12/24 Loc: US Attending Dr: Osei Malik D.O. Ordering Physician: Osei Malik D.O. Date of Service: 11/12/24 Procedure(s): US OB BPP w non-stress Accession Number(s): [id number] cc: JB MANDUJANO ; Osei Malik D.O. The [place] [id number] Patient Name: MADYSON MAI MRN: TB[facility]:[id number] date: 2000 Sex: F Assigned Patient Location: [facility] Current Patient Location: LAB Accession/Order Number: [id number] Exam Date: 11/13/2024 12:22 Report Date: 11/13/2024 12:44 At the request of: OSEI MALIK DO Procedure: US OB BPP w non-stress BPP Reason for exam: Dichorionic diamniotic twin . COMPARISON: BDP 11/05/2024. TECHNIQUE: Transabdominal imaging of the gravid uterus was obtained. FINDINGS: Certification Technician reports a BPP of 8 out of [...] Wells Jr., D.O.11/13/2024 12:44 PM Dictation Location: [place] [address] Electronically authenticated by: [id number] Y Date: 11/13/2024 12:44 Dictated By: Parveen Wells M.D. Signed By: 11/13/24 1246 DD/ 1244 TD/TT: Director Geophysical Laboratory: [facility] Radiology, Radiologi MD billy - 11/13/2024 [place] [address] Ultrasound Report Signed Patient: MADYSON MAI MR#: [id number] : 2000 Acct:[id number] Age/Sex: 23 / F ADM Date: 11/12/24 Loc: US Attending Dr: Osei Malik D.O. Ordering Physician: Osei Malik D.O. Date of Service: 11/12/24 Procedure(s): US OB BPP w non-stress Accession Number(s): [id number] cc: JB MANDUJANO ; Osei Malik D.O. The [address] [id number] Patient Name: MADYSON MAI MRN: [facility]:[id number] date: 2000 Sex: F Assigned Patient Location: [facility] Current Patient Location: LAB Accession/Order Number: [id number] Exam Date: 11/13/2024 12:22 Report Date: 11/13/2024 12:44 At the request of: OSEI MALIK DO Procedure: US OB BPP w non-stress BPP Reason for exam: Dichorionic diamniotic twin . COMPARISON: BDP 11/05/2024. TECHNIQUE: Transabdominal imaging of the gravid uterus was obtained. FINDINGS: Certification Technician reports a BPP of 8 out of [...] Wells Jr., D.O.11/13/2024 12:44 PM Dictation Location: [place] Electronically authenticated by: [id number] Y Date: 11/13/2024 12:44 Dictated By: Parveen Wells M.D. Signed By: 11/13/24 1246 DD/ 1244 TD/TT: Director Geophysical Laboratory: [facility] Radiology Study observation (narrative) [facility] US OB BPP W NON-STRESS Ordered By: Radiologist Radiology on 11-13-2024 [facility] Work Phone: Urinalysis macro (dipstick) panel (U)on 11-10-2024 Bilirubin, UA Negative Negative - 4(70) +++ mg/dL [facility] Blood, UA Negative Negative - 50 Vasu/mcL [facility] Clarity, UA Clear [facility] Color, UA Yellow [facility] Glucose, UA Positive Negative - 1999(110) ++++ mg/dL [facility] Comment on above: 100mg/dL Interpretation and review of laboratory results Abnormal [facility] Ketones, UA Negative Negative - 160(16) ++++ mg/dL [facility] Leukocytes, UA Positive Negative - 500+++ Conrad/mcL [facility] Comment on above: small Nitrite, UA Negative Negative - Positive [facility] pH, UA 7 5 - 9 [facility] Protein, UA Trace Negative - 1999(20) ++++ mg/dL [facility] Spec Grav, UA 1.02 1 - 1.03 [facility] Urobilinogen, UA 0.2 0.2 - 12 mg/dL [facility] ALL CBC WITH AUTO DIFFon BASOPHILS ABSOLUTE AUTO 0 [facility] Basophils/100 WBC (Bld) 0.3 % 0.2 - 2.0 % [facility] Eosinophils/100 WBC (Bld) 0.6 % Low 0.9 - 7.0 % [facility] Erythrocyte distribution width (RBC) [Ratio] 13.2 % 11.0 - 15.0 % [facility] Hematocrit (Bld) [Volume fraction] 38.7 % 36.0 - 48.0 % [facility] Hemoglobin (Bld) [Mass/Vol] 12.9 g/dL 12.0 - 16.0 g/dL [facility] IMMATURE GRANULOCYTES ABS AUTO 0.05 High [facility] Immature granulocytes/100 WBC (Bld) 0.5 % 0.0 - 0.5 % [facility] Interpretation and review of laboratory results Abnormal [facility] LYMPHOCYTES ABSOLUTE AUTO 1.4 [facility] Lymphocytes/100 WBC (Bld) 13.2 % Low 20.5 - 60.0 % [facility] MCH (RBC) [Entitic mass] 28.4 pg 26.7 - 34.0 pg [facility] MCHC (RBC) [Mass/Vol] 33.3 g/dL 29.9 - 35.2 g/dL [facility] MCV (RBC) [Entitic vol] 85.2 fL 81.0 - 99.0 fL [facility] MONOCYTES ABSOLUTE AUTO 0.6 [facility] Monocytes/100 WBC (Bld) 5.7 % 1.7 - 12.0 % [facility] NEUTROPHILS ABSOLUTE AUTO 8.4 High [facility] Neutrophils/100 WBC (Bld) 79.7 % High 43.0 - 75.0 % [facility] Platelet mean volume (Bld) [Entitic vol] 10.3 fL 9.5 - 13.5 fL [facility] TB EO # 0.1 [facility] TB PLT 151 [facility] RBC 4.54 [facility] TB WBC 10.5 [facility] No Panel InformationOrdered By: Radiologist Radiology on 11-06-2024 [facility] Work Phone: No Panel Informationon 11-06 Radiology Study observation (narrative) [facility] US OB BPP W NON-STRESS on 11-06-2024 [place] [id number] Ultrasound Report Signed Patient: MADYSON MAI MR#: [id number] : 2000 Acct:[id number] Age/Sex: 23 / F ADM Date: 11/05/24 Loc: US Attending Dr: Osei Malik D.O. Ordering Physician: Osei Malik D.O. Date of Service: 11/05/24 Procedure(s): US OB BPP w non-stress Accession Number(s): [id number] cc: JB MANDUJANO ; Osei Malik D.O. [place] [address] Patient Name: MADYSON MAI MRN: [facility]:[id number] date: 2000 Sex: F Assigned Patient Location: US Current Patient Location: US Accession/Order Number: [id number] Exam Date: 11/05/2024 17:46 Report Date: 11/06/2024 [...] M.D. Signed By: 11/06/24 0748 DD/ TD/TT: Director Geophysical Laboratory: [facility] Radiology, Radiologyelitza cervantes MD - 11/06/2024 [place] [address] Ultrasound Report Signed Patient: MADYSON MAI MR#: [id number] : 2000 Acct:[id number] Age/Sex: 23 / F ADM Date: 11/05/24 Loc: US Attending Dr: Osei Mlaik D.O. Ordering Physician: Osei Malik D.O. Date of Service: 11/05/24 Procedure(s): US OB BPP w non-stress Accession Number(s): [id number] cc: JB MANDUJANO ; Osei Malik D.O. The [place] [address] Patient Name: MADYSON MAI MRN: [facility]:[id number] date: 2000 Sex: F Assigned Patient Location: US Current Patient Location: US Accession/Order Number: [id number] Exam Date: 11/05/2024 17:46 Report Date: 11/06/2024 [...] M.D. Signed By: 11/06/24 0748 DD/ TD/TT: Director Geophysical Laboratory: [place] [address] Ultrasound Report Signed Patient: MADYSON MAI MR#: [id number] : 2000 Acct:[id number] Age/Sex: 23 / F ADM Date: 11/05/24 Loc: US Attending Dr: Osei Malik D.O. Ordering Physician: Osei Malik D.O. Date of Service: 11/05/24 Procedure(s): US OB BPP w non-stress Accession Number(s): [id number] cc: JB MANDUJANO ; Osei Malik D.O. [place] [address] Patient Name: MADYSON MAI MRN: [id number] date: 2000 Sex: F Assigned Patient Location: US Current Patient Location: US Accession/Order Number: [id number] Exam Date: 11/05/2024 17:46 Report Date: 11/06/2024 [...] M.D. Signed By: 11/06/24 0748 DD/ TD/TT: Director Geophysical Laboratory: [facility] Radiology, Radiologyelitza cervantes MD - 11/06/2024 [place] [address] Ultrasound Report Signed Patient: MADYSON MAI MR#: [id number] : 2000 Acct:[id number] Age/Sex: 23 / F ADM Date: 11/05/24 Loc: US Attending Dr: Osei Malik D.O. Ordering Physician: Osei Malik D.O. Date of Service: 11/05/24 Procedure(s): US OB BPP w non-stress Accession Number(s): [id number] cc: JB MANDUJANO ; Osei Malik D.O. The [place] [address] Patient Name: MADYSON MAI MRN: [facility]:[id number] date: 2000 Sex: F Assigned Patient Location: US Current Patient Location: US Accession/Order Number: [id number] Exam Date: 11/05/2024 17:46 Report Date: 11/06/2024 [...] Signed By: 11/06/24 0748 DD/ 0745 TD/TT: Director Geophysical Laboratory: [facility] [employer] No Panel InformationOrdered By: Radiologist Radiology on 10-30-2024 [facility] [employer] Work Phone: No Panel Informationon 10-30 Radiology Study observation (narrative) [facility] US OB BPP W NON-STRESS on 10-30-2024 [place] [address] Ultrasound Report Signed Patient: MADYSON MAI MR#: [id number] : 2000 Acct:[id number] Age/Sex: 23 / F ADM Date: 10/29/24 Loc: US Attending Dr: Osei Malik D.O. Ordering Physician: Osei Malik D.O. Date of Service: 10/29/24 Procedure(s): US OB BPP w non-stress Accession Number(s): [id number] cc: JB MANDUJANO ; Osei Malik D.O. [place] [address] Patient Name: MADYSON MAI MRN: [facility]:[id number] date: 2000 Sex: F Assigned Patient Location: [facility] Current Patient Location: Accession/Order Number: [id number] Exam Date: 10/29/2024 17:40 Report Date: 10/30/2024 [...] M.D. Signed By: 10/30/2433 DD/ 9 TD/TT: Director Geophysical Laboratory: [facility] Radiology, Radiologyelitza cervantes MD - 10/30/2024 [place] [address] Ultrasound Report Signed Patient: MADYSON MAI MR#: [id number] : 2000 Acct:[id number] Age/Sex: 23 / F ADM Date: 10/29/24 Loc: US Attending Dr: Osei Malik D.O. Ordering Physician: Osei Malik D.O. Date of Service: 10/29/24 Procedure(s): US OB BPP w non-stress Accession Number(s): [id number] cc: JB MANDUJANO ; Osei Malik D.O. [place] [address] Patient Name: MADYSON MAI MRN: [facility]:[id number] date: 2000 Sex: F Assigned Patient Location: [facility] Current Patient Location: Accession/Order Number: [id number] Exam Date: 10/29/2024 17:40 Report Date: 10/30/2024 [...] M.D. Signed By: 10/30/2433 DD/ 9 TD/TT: Director Geophysical Laboratory[facility] [place] [address] Ultrasound Report Signed Patient: MADYSON MAI MR#: [id number] : 2000 Acct:[id number] Age/Sex: 23 / F ADM Date: 10/29/24 Loc: Attending Dr: Osei Malik D.O. Ordering Physician: Osei Malik D.O. Date of Service: 10/29/24 Procedure(s): US OB BPP w non-stress Accession Number(s): [id number] cc: JB MANDUJANO ; Osei Malik D.O. [place] [address] Patient Name: MADYSON MAI MRN: [id number] date: 2000 Sex: F Assigned Patient Location: [facility] Current Patient Location: Accession/Order Number: [id number] Exam Date: 10/29/2024 17:40 Report Date: 10/30/2024 [...] M.D. Signed By: 10/30/2433 DD/ 9 TD/TT: Director Geophysical Laboratory: [facility] Radiology, Radiologi MD billy - 10/30/2024 [place] [address] Ultrasound Report Signed Patient: MADYSON MAI MR#: [id number] : 2000 Acct:[id number] Age/Sex: 23 / F ADM Date: 10/29/24 Loc: US Attending Dr: Osei Malik D.O. Ordering Physician: Osei Malik D.O. Date of Service: 10/29/24 Procedure(s): US OB BPP w non-stress Accession Number(s): [id number] cc: JB MANDUJANO Corey D.O. The [place] [id number] Patient Name: MADYSON MAI MRN: [facility]:[id number] date: 2000 Sex: F Assigned Patient Location: [facility] Current Patient Location: Accession/Order Number: [id number] Exam Date: 10/29/2024 17:40 Report Date: 10/30/2024 [...] Signed By: 10/30/24 0733 DD/ 0730 TD/TT: Director Geophysical Laboratory: [facility] Urinalysis macro (dipstick) panel (U)on 10-29-2024 Bilirubin, UA Negative Negative - 4(70) +++ mg/dL [facility] Blood, UA Negative Negative - 50 Vasu/mcL [facility] Clarity, UA Clear [facility] Color, UA Yellow [facility] Glucose, UA Positive Negative - 1999(110) ++++ mg/dL [facility] Comment on above: 100 MG Interpretation and review of laboratory results Abnormal [facility] Ketones, UA Negative Negative - 160(16) ++++ mg/dL [facility] Leukocytes, UA Positive Negative - 500+++ Conrad/mcL [facility] Comment on above: SMALL Nitrite, UA Negative Negative - Positive [facility] pH, UA 7 5 - 9 [facility] Protein, UA Negative Negative - 1999(20) ++++ mg/dL [facility] Spec Grav, UA 1.01 1 - 1.03 [facility] Urobilinogen, UA 0.2 0.2 - 12 mg/dL [facility] CTA Chest vessels WO and W c ontrast Luiz 10-27-2024 [place] [address] CT Scan Report Signed Patient: MADYSON MAI MR#: [id number] : 2000 Acct:[id number] Age/Sex: 23 / F ADM Date: Loc: [facility] 251-[address]: Osei Malik D.O. Ordering Physician: Osei Malik D.O. Date of Service: 10/27/24 Procedure(s): CT angio chest Accession Number(s): [id number] cc: JB MANDUJANO [place] [address] Patient Name: MADYSON MAI MRN: [id number] date: 2000 Sex: F Assigned Patient Location: [facility] Current Patient Location: [facility] Accession/Order Number: [id number] Exam Date: 10/27/2024 15:20 Report Date: 10/27/2024 [...] Signed By: 10/27/24 1556 DD/ 1554 TD/TT: Director Geophysical Laboratory: [facility] Radiology, Radiologi MD billy - 10/27/2024 [place] [address] CT Scan Report Signed Patient: MADYSON MAI MR#: [id number] : 2000 Acct:[id number] Age/Sex: 23 / F ADM Date: Loc: [facility] 251-[address]: Osei Malik D.O. Ordering Physician: Osei Malik D.O. Date of Service: 10/27/24 Procedure(s): CT angio chest Accession Number(s): [id number] cc: JB MANDUJANO [place] [address] Patient Name: MADYSON MAI MRN: [facility]:[id number] date: 2000 Sex: F Assigned Patient Location: [facility] Current Patient Location: [facility] Accession/Order Number: [id number] Exam Date: 10/27/2024 15:20 Report Date: 10/27/2024 [...] Small M.D. Signed By: 10/27/24 1556 DD/ 155 TD/TT: Director Geophysical Laboratory: [facility] Radiology Study observation (narrative) [facility] CTA Chest vessels WO and W c ontrast IVOrdered By: Radiologist Radiology on 10-27-2024 [facility] Work Phone: ECG 12-LEADon 10-27-2024 [place] [address] Electrocardiograph Report Signed Patient: MADYSON MAI MR#: [id number] : 2000 Acct:[id number] Age/Sex: 23 / F ADM Date: Loc: [facility] Attending Dr: Osei Malik D.O. Ordering Physician: Osei Malik D.O. Date of Service: 10/27/24 Procedure(s): ECG 12 lead Accession Number(s): [id number] cc: [facility] Test Date: 2024-10-27 Pat Name: MADYSON AMI Department: Room: [facility] Gender: Female Rehabilitation Consultant: : 2000 Requested By: OSEI MALIK Order Number: [id number] Reading MD: SURYA MEJÍA Measurements Intervals [place] Rate: 98 P: 36 WA: 153 QRS: 19 QRSD: 98 T: 28 QT: 353 QTc: 451 Interpretive Statements SINUS RHYTHM No previous ECG available for comparison Electronically Signed On 10-27-2024 20:49:34 EST by SURYA MEJÍA Dictated By: Surya Mejía D.O. Signed By: 10/27/242048 DD/ 54 TD/TT: Director Geophysical Laboratory: [facility] Radiology, Radiologyelitza cervantes MD - 10/27/[address] [address] Electrocardiograph Report Signed Patient: MADYSON MAI MR#: [id number] : 2000 Acct:[id number] Age/Sex: 23 / F ADM Date: Loc: [facility] [address]: Osei Malik D.O. Ordering Physician: Osei Malik D.O. Date of Service: 10/27/24 Procedure(s): ECG 12 lead Accession Number(s): [id number] cc: [facility] Test Date: 2024-10-27 Pat Name: MADYSON MAI Department: Room: [facility] Gender: Female Rehabilitation Consultant: : 2000 Requested By: OSEI MALIK Order Number: [id number] Reading MD: SURYA MEJÍA Measurements Intervals [place] Rate: 98 P: 36 WA: 153 QRS: 19 QRSD: 98 T: 28 QT: 353 QTc: 451 Interpretive Statements SINUS RHYTHM No previous ECG available for comparison Electronically Signed On 10-27-2024 20:49:34 EST by SURYA MEJÍA Dictated By: Surya Mejía D.O. Signed By: 10/27/242048 DD/ 54 TD/TT: Director Geophysical Laboratory: [facility] Radiology Study observation (narrative) [facility] ECG 12-LEADOrdered By: Radio logist Radiology on 10-27-2024 [facility] Work Phone: [facility] UA (CLEAN/CATCH) CALCINE FURNACE TENDER/YOUSIF RO IF IND.on 10-27-2024 BILIRUBIN URINE Negative NEGATIVE [facility] BLOOD URINE Negative NEGATIVE [facility] Clarity (U) CLEAR CLEAR [facility] Color (U) LT. YELLOW YELLOW [facility] GLUCOSE URINE UA 500 mg/dL Abnormal NEGATIVE [facility] Interpretation and review of laboratory results Abnormal [facility] Ketones Ql (U) Negative NEGATIVE mg/dL [facility] Leukocyte esterase Test strip Ql (U) SMALL Abnormal NEGATIVE [facility] NITRITE URINE Negative NEGATIVE [facility] pH (U) 6.5 [pH] 5.0 - 9.0 [facility] PROTEIN URINE Negative NEG/TRACE mg/dL [facility] SPECIFIC GRAVITY URINE 1.020 1.005 - 1.025 [facility] URINE MICROSCOPIC INDICATED YES [facility] UROBILINOGEN URINE 1.0 EU/dL 0.2 - 1.0 EU/dL [facility] No Panel InformationOrdered By: Radiologist Radiology on 10-23-2024 [facility] Work Phone: No Panel Informationon 10-23 Radiology Study observation (narrative) [facility] US OB BPP W NON-STRESS on 10-23-2024 [place] [address] Ultrasound Report Signed Patient: MADYSON MAI MR#: [id number] : 2000 Acct:[id number] Age/Sex: 23 / F ADM Date: 10/22/24 Loc: US Attending Dr: Osei Malik D.O. Ordering Physician: Osei Malik D.O. Date of Service: 10/22/24 Procedure(s): US OB BPP w non-stress Accession Number(s): [id number] cc: JB MANDUJANO ; Osei Malik D.O. [address] [address] Patient Name: MADYSON MAI MRN: [facility]:[id number] date: 2000 Sex: F Assigned Patient Location: [facility] Current Patient Location: Accession/Order Number: [id number] Exam Date: 10/22/2024 17:05 Report Date: 10/23/2024 [...] Signed By: 10/23/24 0745 DD/ 0742 TD/TT: Director Geophysical Laboratory: [facility] Radiology, Radiologi MD billy - 10/23/2024 [place] [address] Ultrasound Report Signed Patient: MADYSON MAI MR#: [id number] : 2000 Acct:[id number] Age/Sex: 23 / F ADM Date: 10/22/24 Loc: US Attending Dr: Osei Malik D.O. Ordering Physician: Osei Malik D.O. Date of Service: 10/22/24 Procedure(s): US OB BPP w non-stress Accession Number(s): [id number] cc: JB MANDUJANO ; Osei Malik D.O. [place] [id number] Patient Name: MADYSON MAI MRN: [facility]:[id number] date: 2000 Sex: F Assigned Patient Location: [facility] Current Patient Location: Accession/Order Number: [id number] Exam Date: 10/22/2024 17:05 Report Date: 10/23/2024 [...] Small M.D. Signed By: 10/23/2445 DD/ TD/TT: Director Geophysical Laboratory[facility] [place] [address] Ultrasound Report Signed Patient: MADYSON MAI MR#: [id number] : 2000 Acct:[id number] Age/Sex: 23 / F ADM Date: 10/22/24 Loc: US Attending Dr: Osei Malik D.O. Ordering Physician: Osei Malik D.O. Date of Service: 10/22/24 Procedure(s): US OB BPP w non-stress Accession Number(s): [id number] cc: JB MANDUJANO ; Osei Malik D.O. [place] [id number] Patient Name: MADYSON MAI MRN: [id number] date: 2000 Sex: F Assigned Patient Location: [facility] Current Patient Location: Accession/Order Number: [id number] Exam Date: 10/22/2024 17:05 Report Date: 10/23/2024 [...] Signed By: 10/23/24 0745 DD/ 0742 TD/TT: Director Geophysical Laboratory: [facility] Radiology, Radiologi MD billy - 10/23/2024 [place] [address] Ultrasound Report Signed Patient: MADYSON MAI MR#: [id number] : 2000 Acct:[id number] Age/Sex: 23 / F ADM Date: 10/22/24 Loc: US Attending Dr: Osei Malik D.O. Ordering Physician: Osei Malik D.O. Date of Service: 10/22/24 Procedure(s): US OB BPP w non-stress Accession Number(s): [id number] cc: JB MANDUJANO ; Osei Malik D.O. [place] [address] Patient Name: MADYSON MAI MRN: [facility]:[id number] date: 2000 Sex: F Assigned Patient Location: [facility] Current Patient Location: Accession/Order Number: [id number] Exam Date: 10/22/2024 17:05 Report Date: 10/23/2024 [...] Signed By: 10/23/24 0745 DD/ 0742 TD/TT: Director Geophysical Laboratory: [facility] Urinalysis macro (dipstick) panel (U)on 10-15-2024 Bilirubin, UA Negative Negative - 4(70) +++ mg/dL [facility] Blood, UA Negative Negative - 50 Vasu/mcL [facility] Clarity, UA Clear [facility] Color, UA Yellow [facility] Glucose, UA Positive Negative - 1999(110) ++++ mg/dL [facility] Comment on above: 500 Interpretation and review of laboratory results Abnormal [facility] Ketones, UA Negative Negative - 160(16) ++++ mg/dL [facility] Leukocytes, UA Positive Negative - 500+++ Conrad/mcL [facility] Comment on above: small Nitrite, UA Negative Negative - Positive [facility] pH, UA 6 5 - 9 [facility] Protein, UA Trace Negative - 1999(20) ++++ mg/dL [facility] Spec Grav, UA 1.02 1 - 1.03 [facility] Urobilinogen, UA 0.2 0.2 - 12 mg/dL [facility] Urinalysis macro (dipstick) panel (U)on 10-02-2024 Bilirubin, UA Negative Negative - 4(70) +++ mg/dL [facility] Blood, UA Negative Negative - 50 Vasu/mcL [facility] Clarity, UA Clear [facility] Color, UA Yellow [facility] Glucose, UA Negative Negative - 1999(110) ++++ mg/dL [facility] Interpretation and review of laboratory results Abnormal [facility] Ketones, UA Positive Negative - 160(16) ++++ mg/dL [facility] Comment on above: 40 Leukocytes, UA Trace Negative - 500+++ Conrad/mcL [facility] Nitrite, UA Negative Negative - Positive [facility] pH, UA 6 5 - 9 [facility] Protein, UA Positive Negative - 1999(20) ++++ mg/dL [facility] Comment on above: 30 Spec Grav, UA 1.03 1 - 1.03 [facility] Urobilinogen, UA 0.2 0.2 - 12 mg/dL [facility] UA (CLEAN/CATCH) CALCINE FURNACE TENDER/YOUSIF RO IF IND.on 09-25-2024 BILIRUBIN URINE Negative NEGATIVE [facility] BLOOD URINE Negative NEGATIVE [facility] Clarity (U) CLEAR CLEAR [facility] Color (U) LT. YELLOW YELLOW [facility] GLUCOSE URINE UA 250 mg/dL Abnormal NEGATIVE [facility] Interpretation and review of laboratory results Abnormal [facility] Ketones Ql (U) Negative NEGATIVE mg/dL [facility] Leukocyte esterase Test strip Ql (U) SMALL Abnormal NEGATIVE [facility] NITRITE URINE Negative NEGATIVE [facility] pH (U) 6.0 [pH] 5.0 - 9.0 [facility] PROTEIN URINE Negative NEG/TRACE mg/dL [facility] SPECIFIC GRAVITY URINE 1.020 1.005 - 1.025 [facility] URINE MICROSCOPIC INDICATED YES [facility] UROBILINOGEN URINE 0.2 EU/dL 0.2 - 1.0 EU/dL [facility] Urine Cultureon 09-25-2024 Bacteria identified Cx Nom (U) <9,000 colonies/ml mixed bacterial skin contaminants 2 Days PERFORMED BY: [facility] [address] [place] [address] PATHOLOGIST LSW KARMA BUCK M.D. Normal [facility] Comment on above: Performed By: #### C UU #### [facility] [address] Urinalysis macro (dipstick) panel (U)on 09-18-2024 Bilirubin, UA Negative Negative - 4(70) +++ mg/dL [facility] Blood, UA Negative Negative - 50 Vasu/mcL [facility] Clarity, UA Clear [facility] Color, UA Yellow [facility] Glucose, UA Positive Negative - 1999(110) ++++ mg/dL [facility] Comment on above: 100 Interpretation and review of laboratory results Abnormal [facility] Ketones, UA Negative Negative - 160(16) ++++ mg/dL [facility] Leukocytes, UA Positive Negative - 500+++ Conrad/mcL [facility] Comment on above: small Nitrite, UA Negative Negative - Positive [facility] pH, UA 7 5 - 9 [facility] Protein, UA Trace Negative - 1999(20) ++++ mg/dL [facility] Spec Grav, UA 1.02 1 - 1.03 [facility] Urobilinogen, UA 0.2 0.2 - 12 mg/dL [facility] Urinalysis macro (dipstick) panel (U)on 09-03-2024 Bilirubin, UA Negative Negative - 4(70) +++ mg/dL [facility] Blood, UA Negative Negative - 50 Vasu/mcL [facility] Clarity, UA Clear [facility] Color, UA Yellow [facility] Glucose, UA Many Negative - 1999(110) ++++ mg/dL [facility] Interpretation and review of laboratory results Abnormal [facility] Ketones, UA Positive Negative - 160(16) ++++ mg/dL [facility] Leukocytes, UA Positive Negative - 500+++ Conrad/mcL [facility] Nitrite, UA Negative Negative - Positive [facility] pH, UA 6.5 5 - 9 [facility] Protein, UA Moderate Negative - 1999(20) ++++ mg/dL [facility] Spec Grav, UA 1.025 1 - 1.03 [facility] Urobilinogen, UA 0.2 0.2 - 12 mg/dL [facility] GLUCOSE TOLERANCE 3 HOURon 1 11-02-2023 GLUCOSE TOLERANCE 3 HOUR High mg/dL [facility] Comment on above: GLU FAST 86 (<95) Co l: 09/01/2418 GLU 1HR 162 (<180) Col: 09/01/24 0919 GLU 2HR 156H (<155) Col: 09/01/24 1019 GLU 3HR 110 (<140) Col: 09/01/24 1119 Interpretation and review of laboratory results Abnormal [facility] ALL CBC WITH AUTO DIFFon BASOPHILS ABSOLUTE AUTO 0 [facility] Basophils/100 WBC (Bld) 0.2 % 0.2 - 2.0 % [facility] Eosinophils/100 WBC (Bld) 0.7 % Low 0.9 - 7.0 % [facility] Erythrocyte distribution width (RBC) [Ratio] 13.6 % 11.0 - 15.0 % [facility] Hematocrit (Bld) [Volume fraction] 32.9 % Low 36.0 - 48.0 % [facility] Hemoglobin (Bld) [Mass/Vol] 11.1 g/dL Low 12.0 - 16.0 g/dL [facility] IMMATURE GRANULOCYTES ABS AUTO 0.11 High [facility] Immature granulocytes/100 WBC (Bld) 1.1 % High 0.0 - 0.5 % [facility] Interpretation and review of laboratory results Abnormal [facility] LYMPHOCYTES ABSOLUTE AUTO 1.3 [facility] Lymphocytes/100 WBC (Bld) 13 % Low 20.5 - 60.0 % [facility] MCH (RBC) [Entitic mass] 29.6 pg 26.7 - 34.0 pg [facility] MCHC (RBC) [Mass/Vol] 33.7 g/dL 29.9 - 35.2 g/dL [facility] MCV (RBC) [Entitic vol] 87.7 fL 81.0 - 99.0 fL [facility] MONOCYTES ABSOLUTE AUTO 0.6 [facility] Monocytes/100 WBC (Bld) 5.5 % 1.7 - 12.0 % [facility] NEUTROPHILS ABSOLUTE AUTO 7.9 High [facility] Neutrophils/100 WBC (Bld) 79.5 % High 43.0 - 75.0 % [facility] Platelet mean volume (Bld) [Entitic vol] 10.3 fL 9.5 - 13.5 fL [facility] TBH EO # 0.1 [facility]H PLT [address] [facility] RBC 3.75 Low [facility]H WBC 9.9 [facility] IGP,APTIMA HPV,AGE GDLNon AGE GDLN ACOG TESTING Note . [facility] Comment on above: TESTS RESULT FLAG UN [facility] REF RANGE LAB Clinician Provided Cytology Information Source.............Cervix No. of containers..01 ThinPrep Vial Age Sahra KYAW Maureen... FLAG LEGEND: L-Low Normal,H-High Normal,LL-Alert Low,HH-Alert High <-Panic Low,>-Panic High,A-Abnormal,AA-Critical Abnormal Performed at: 01 =G [address] [address] Toya Wilson MD, IGP, RFX APTIMA HPV ASCU Note . [facility] Comment on above: TESTS RESULT FLAG [facility] REF RANGE LAB DIAGNOSIS: 02 NEGATIVE FOR INTRAEPITHELIAL LESION OR MALIGNANCY. Specimen adequacy: 02 Satisfactory for evaluation. No endocervical component is identified. Performed by: Phillip Miranda Mesh Cutter ([facility]) . 02 Note: Note 02 The [...] <-Panic Low,>-Panic High,A-Abnormal,AA-Critical Abnormal Performed at: [address] [place] [address] Toya Wilson MD, Performed at: = - [address] [id number] Hide Cleaner: Toya Wilson MD, Phone: [phone] Performed at: [address] [id number] Hide Cleaner: Toya Wilson MD, Phone: [phone] SPATULA-ALONE CERVIX [facility] AFP, SERUM, OPEN SPINA BIFID Aon 08-13-2024 AFP MOM 2.24 . [facility] AFP VALUE 103.1 ng/mL . [facility] COMMENT: Comment . [facility] Comment on above: Joyce Reina , Ph.D., [facility] Director References: Available Upon Request. Multiples Of Median Cutoffs For AFP Elevations [place] 2.5 Black 2.8 IDD 2.0 Twins 4.5 Abbreviation Definitions IDD - Insulin Dep Diabetes OSBR - Open Spina Bifida Risk For further inquiries contact [employer] at [phone]. This test was developed and its performance characteristics determined by [employer]. It has not been cleared or approved by the Food and Drug Administration. Performed at: - [facility] [address] [place], [place] [id number] Hide Cleaner: Angel Regan [facility], Phone: [phone] GEST. AGE ON COLLECTION DATE 20.3 . weeks [facility] GESTAT. AGE BASED ON LMP . [facility] Comment on above: Recalculations are n ot recommended when gestational dating by LMP and ultrasound are within 10 days. INSULIN DEP DIABETES No . [facility] INTERPRETATION Comment . [facility] Comment on above: Interpretation: Scre en [...] Customer Services to discuss available options. The [employer] recommends amniocentesis be offered to women age 35 and older. [age] [facility] MULTIPLE GESTATION Twins . [facility] OSBR RISK 1 IN 1081 . [facility] RACE . [facility] RESULTS Report . [facility] TEST RESULTS: Negative . [facility] WEIGHT 219 . 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 3-vessel view. 0-uajzxy-ahktlnq view. Interventricular septum. Diaphragm. Abdomen Right renal [...] Nuchal fold. F (more content not included)... [facility] Radiology Study observation (narrative) [facility] US for pregnancyOrdered By: Radiologist Radiology on 08-13-2024 [facility] Work Phone: RECURRENT VAGINITIS (HTRX)on 08-07-2024 ATOPOBIUM VAGINAE 29.356 Abnormal [facility] ATOPOBIUM VAGINAE Detected Abnormal [facility] BVAB 2,3 (BACTERIAL VAGINOSIS ASSOCIATED BACTERIA 2, 3); MOBILUNCUS SPP 0 [facility] BVAB 2,3 (BACTERIAL VAGINOSIS ASSOCIATED BACTERIA 2, 3); MOBILUNCUS SPP Not detected [facility] SANTHOSH ALBICANS, PARAPSILOSIS, TROPICALIS 0 [facility] SANTHOSH ALBICANS, PARAPSILOSIS, TROPICALIS Not detected [facility] SANTHOSH GLABRATA 0 [facility] SANTHOSH GLABRATA Not detected [facility] SANTHOSH KRUSEI 0 [facility] SANTHOSH KRUSEI Not detected [facility] CHLAMYDIA TRACHOMATIS 0 NOM [facility] CHLAMYDIA TRACHOMATIS Not detected N [facility] GARDNERELLA VAGINALIS 0 NOM [facility] GARDNERELLA VAGINALIS Not detected N [facility] Interpretation and review of laboratory results Abnormal [facility] MEGASPHAERA (TYPES 1, 2) 0 [facility] MEGASPHAERA (TYPES 1, 2) Not detected [facility] MYCOPLASMA GENITALIUM 0 NOM [facility] MYCOPLASMA GENITALIUM Not detected N [facility] NEISSERIA GONORRHOEAE 0 NOM [facility] NEISSERIA GONORRHOEAE Not detected N [facility] TRICHOMONAS VAGINALIS 0 [facility] TRICHOMONAS VAGINALIS Not detected N [facility] Urinalysis macro (dipstick) panel (U)on 08-05-2024 Bilirubin, UA Negative Negative - 4(70) +++ mg/dL [facility] Blood, UA Negative Negative - 50 Vasu/mcL [facility] Clarity, UA Clear [facility] Color, UA Yellow [facility] Glucose, UA Negative Negative - 1999(110) ++++ mg/dL [facility] Interpretation and review of laboratory results Normal [facility] Ketones, UA Negative Negative - 160(16) ++++ mg/dL [facility] Leukocytes, UA Negative Negative - 500+++ Conrad/mcL [facility] Nitrite, UA Negative Negative - Positive [facility] pH, UA 5.5 5 - 9 [facility] Protein, UA Negative Negative - 1999(20) ++++ mg/dL [facility] Spec Grav, UA 1.02 1 - 1.03 [facility] Urobilinogen, UA 1.0 0.2 - 12 mg/dL [facility] Urinalysis macro (dipstick) panel (U)on 07-03-2024 Bilirubin, UA Negative Negative - 4(70) +++ mg/dL [facility] Blood, UA Negative Negative - 50 Vasu/mcL [facility] Clarity, UA Clear [facility] Color, UA Yellow [facility] Glucose, UA Positive Negative - 1999(110) ++++ mg/dL [facility] Comment on above: 500 Interpretation and review of laboratory results Abnormal [facility] Ketones, UA Negative Negative - 160(16) ++++ mg/dL [facility] Leukocytes, UA Negative Negative - 500+++ Conrad/mcL [facility] Nitrite, UA Negative Negative - Positive [facility] pH, UA 6.0 5 - 9 [facility] Protein, UA Negative Negative - 2000(20) ++++ mg/dL [facility] Spec Grav, UA 1.015 1 - 1.03 [facility] Urobilinogen, UA 0.2 0.2 - 12 mg/dL [facility] Urinalysis macro (dipstick) panel (U)Ordered By: Ibis Sandoval on 06-04-2024 Bilirubin, UA Negative Negative - 4(70) +++ mg/dL [facility] Blood, UA Positive Negative - 50 Vasu/mcL [facility] Comment on above: trace-intact Clarity, UA Clear [facility] Color, UA Yellow [facility] Glucose, UA Negative Negative - 1999(110) ++++ mg/dL [facility] Interpretation and review of laboratory results Abnormal [facility] Ketones, UA Negative Negative - 160(16) ++++ mg/dL [facility] Leukocytes, UA Trace Negative - 500+++ Conrad/mcL [facility] Nitrite, UA Negative Negative - Positive [facility] pH, UA 5.5 5 - 9 [facility] Protein, UA Negative Negative - 1999(20) ++++ mg/dL [facility] Spec Grav, UA 1.005 1 - 1.03 [facility] Urobilinogen, UA 0.2 0.2 - 12 mg/dL [facility] ALL CBC WITH AUTO DIFFon BASOPHILS ABSOLUTE AUTO 0.0 [facility] Basophils/100 WBC (Bld) 0.5 % 0.2 - 2.0 % [facility] Eosinophils/100 WBC (Bld) 0.5 % Low 0.9 - 7.0 % [facility] Erythrocyte distribution width (RBC) [Ratio] 11.9 % 11.0 - 15.0 % [facility] IMMATURE GRANULOCYTES ABS AUTO 0.03 [facility] Immature granulocytes/100 WBC (Bld) 0.4 % 0.0 - 0.5 % [facility] Interpretation and review of laboratory results Abnormal [facility] LYMPHOCYTES ABSOLUTE AUTO 1.8 [facility] Lymphocytes/100 WBC (Bld) 23.3 % 20.5 - 60.0 % [facility] MCH (RBC) [Entitic mass] 29.7 pg 26.7 - 34.0 pg [facility] MCHC (RBC) [Mass/Vol] 34.9 g/dL 29.9 - 35.2 g/dL [facility] MCV (RBC) [Entitic vol] 85.1 fL 81.0 - 99.0 fL [facility] MONOCYTES ABSOLUTE AUTO 0.5 [facility] Monocytes/100 WBC (Bld) 6.3 % 1.7 - 12.0 % [facility] NEUTROPHILS ABSOLUTE AUTO 5.4 [facility] Neutrophils/100 WBC (Bld) 69.0 % 43.0 - 75.0 % [facility] Platelet mean volume (Bld) [Entitic vol] 10.3 fL 9.5 - 13.5 fL [facility] TBH EO # 0.0 [facility] TB PLT 206 [facility] RBC 4.55 [facility] WBC 7.8 [facility] - Hematology and Cell countson 05-24-2024 Hematocrit (Bld) [Volume fraction] 38.7 % [facility] Hemoglobin (Bld) [Mass/Vol] 13.5 g/dL [facility] No Panel Informationon 05-24 [facility] HCG ( test) Ql (U)o n 05-23-2024 Interpretation and review of laboratory results Abnormal [facility] Preg Test, Ur Positive [facility] Urinalysis macro (dipstick) panel (U)on 05-23-2024 Bilirubin, UA Negative Negative - 4(70) +++ mg/dL [facility] Blood, UA Negative Negative - 50 Vasu/mcL [facility] Clarity, UA Clear [facility] Color, UA Yellow [facility] Glucose, UA Negative Negative - 1999(110) ++++ mg/dL [facility] Interpretation and review of laboratory results Normal [facility] Ketones, UA Negative Negative - 160(16) ++++ mg/dL [facility] Leukocytes, UA Negative Negative - 500+++ Conrad/mcL [facility] Nitrite, UA Negative Negative - Positive [facility] pH, UA 7.0 5 - 9 [facility] Protein, UA Negative Negative - 1999(20) ++++ mg/dL [facility] Spec Grav, UA 1.025 1 - 1.03 [facility] Urobilinogen, UA 1.0 0.2 - 12 mg/dL [facility] CHEMISTRYOrdered By: SYSTEM SYSTEM on 04-12-2024 [...] Progesterone Lvl 31.70 ng/mL Invalid Interpretation Code [facility] Comment on above: Result Comment: 'F N ON FOLLICULAR = 0.10 - 0.60' 'LUTEAL = 3.00 - 17.5' 'MIDLUTEAL = 3.30 - 18.6' 'POST-MENOPAUSE = 0.10 - 0.40' '-FIRST TRIMESTER = 8.30 - 66.5' 'SECOND TRIMESTER = 18.9 - 66.1' 'THIRD TRIMESTER = 35.8 - 312.4' 'MALES = 0.14 - 2.06' Performed By: #### 2 [id number] #### [facility] [address] [place] [address] CHEMISTRYOrdered By: SYSTEM SYSTEM on 03-14-2024 Progesterone [...] Consent for Treatmenton 02-23 Consent for Treatment [id number]#[id number] [facility] Physician Orderon 03-14-2024 Physician Order [id number]#[id number] [facility] Progesteroneon 03-14-2024 Progesterone Lvl 16.15 ng/mL Invalid Interpretation Code [facility] Comment on above: Result Comment: 'F N ON FOLLICULAR = 0.10 - 0.60' 'LUTEAL = 3.00 - 17.5' 'MIDLUTEAL = 3.30 - 18.6' 'POST-MENOPAUSE = 0.10 - 0.40' '-FIRST TRIMESTER = 8.30 - 66.5' 'SECOND TRIMESTER = 18.9 - 66.1' 'THIRD TRIMESTER = 35.8 - 312.4' 'MALES = 0.14 - 2.06' Performed By: #### 2 [id number] #### [facility] [address] [place] [address] Ambulatory Visit Summaryon 0 12-11-2023 Ambulatory Visit [...] 11:20 AM EDT With: Krista Daley Where: [facility] [place] [facility] Family Medicine Office/Clini c Noteon 12-11-2023 Family Medicine Office/Clinic Note HPI Staff Madyson is a 23 year old female presenting to [facility] Establish Care: History: Any previous diagnosis: POTS (11/30/23) History of seeing any specialist: Jyoti Dickey [facility] for the 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 Class 1 obesity due to excess calories in adult (E66.09: Other obesity due to excess calories) see above Ordered: omeprazole, 40 mg = 1 cap(s), Oral, Daily, # 30 cap(s), Refills(s) 1, Pharmacy: [facility], 168.3, cm, 12/11/23 13:07:00 EDT, Height/Length Dosing, 93.6, kg, 12/11/23 13:07:00 EDT, Weight Dosing 4. Nonsmoker (Z78.9: Other specified health status) continue not smoking Ordered: omeprazole, 40 mg = 1 cap(s), Oral, Daily, # 30 cap(s), Refills(s) 1, Pharmacy: [facility], 168.3, cm, 12/11/23 13:07:00 EDT, Height/Length [...] 03/05/2002 Recorded (more content not included)... [facility] Comment on above: Result Comment: Elec tronically Signed By: Krista Daley\\Date and Time Signed: 12/11/23 13:32 EDT CNOVon 11-30-2023 CNOV Office Visit (NENMMN ) ----- PRENATT,MADYSON M ([id number]) 2 F Date Time Provider Department 11/30/23 10:00 AM JYOTI DICKEYNMMN During your visit today, we recorded the following information about you: Pulse Blood pressure Weight Height 84/minute 118/79 93 kg [id number] jesscia Jyoti Dickey PA-C 11/30/2023 11:14 AM Signed [facility] New Patient Evaluation Madyson [...] experienced LOC while walking up the stairs. [place] prodromal symptoms including lightheadedness and tunnel vision. [...] Urination: + (more content not included)... Normal [facility] ECHOon 11-12-2023 Echocardiography Echocardiography Rep ort: Transthoracic Echo [facility] A17 Date of service: 11/12/2023 1:08:10 PM DRIVER Ordering physician: AURORA SANTIAGO Indication: Initial evaluation [...] * * Final * * * CC [facility] : [id number] Normal [facility] CNOVon 10-10-2023 CNOV Office Visit (NEADMN ) ----- MADYSON MAI ([id number]) 2 F Date Time Provider Department 10/10/23 2:00 PM AURORA SANTIAGO During your visit today, we recorded the following information about you: Pulse Blood pressure Weight Height 108/minute 119/85 93 kg 1.651 m Aurora Santiago PA-C 10/10/2023 4:33 PM Signed [facility] New Patient Evaluation CHIEF [...] on BC (more content not included)... Normal [facility] Quantiferon-TB Plus (Client Incubated)on 07-26-2023 Gamma interferon background IA Qn (Bld) 0.01 International_Unit/mL Invalid Interpretation Code [facility] Comment on above: Performed By: #### 1 [id number] #### [facility] [address] [place] [address] M. tuberculosis stim IFN-g by CD4+ CD8+ T-cells Qn (Bld) 0.30 International_Unit/mL Invalid Interpretation Code [facility] Comment on above: Performed By: #### 1 [id number] #### [facility] [address] [place] [address] M. tuberculosis stim IFN-g by CD4+ T-cells Qn (Bld) 0.23 International_Unit/mL Invalid Interpretation Code [facility] Comment on above: Performed By: #### 1 [id number], [id number], [id number] #### [facility] [address] [place] [address] M. tuberculosis stim IFN-g Ql (Bld) [Interp] Negative Invalid Interpretation Code Negative [facility] Comment on above: Result Comment: [...] interferon gamma. Chemiluminescence immunoassay methodology Performed at: [facility] [id number] PhD Rubio Vinson Performed By: #### 1 [id number], [id number] #### [facility] [address] [place] [address] Mitogen stimulated gamma interferon Qn (Bld) >10.00 Invalid Interpretation Code [facility] Comment on above: Performed By: #### 1 [id number], [id number], [id number] #### [facility] [address] [place] [address] Service comment (Unsp spec) [Interp] Comment Invalid Interpretation Code [facility] Comment on above: Result Comment: [...] for the test. Performed By: #### 1 [id number], [id number], [id number], [id number] #### [facility] [address] [place] [address] Hep Bs Abon 07-25-2023 HBV surface Ab Ql (S) Non-Reactive Invalid Interpretation Code [facility] Comment on above: Result Comment: Non Reactive: Inconsistent with immunity, less than 10 mIU/mL Reactive: Consistent with immunity, greater than 9.9 mIU/mL Performed at: [facility] [address], [place] [id number] PhD Rubio Vinson Performed By: #### 1 [id number], [id number], [id number], [id number] #### [facility] [address] [place] [address] Measles/Mumps/Rubella Immuni tyon 07-25-2023 MeV IgG IA Qn (S) 34.3 A unit/mL Invalid Interpretation Code Immune >16.4 [facility] Comment on above: Result Comment: Nega tive <13.5 Equivocal 13.5 - 16.4 Positive >16.4 Presence of antibodies to Rubeola is presumptive evidence of immunity except when acute infection is suspected. Performed By: #### 1 [id number], [id number], [id number], [id number] #### [facility] [address] [place] [address] MuV IgG IA Qn (S) <9.0 Low Immune >10.9 [facility] Comment on above: Result Comment: Nega tive <9.0 Equivocal 9.0 - 10.9 Positive >10.9 A positive result generally indicates past exposure to Mumps virus or previous vaccination. Performed at: [facility] [address] [place] [address] [id number] PhD Rubio Vinson Performed By: #### 1 [id number], [id number], [id number], [id number] #### [facility] [address] [place] [address] Rubella virus IgG Qn (S) 1.53 [IU]/mL Invalid Interpretation Code Immune >0.99 [facility] Comment on above: Result Comment: Non- immune <0.90 Equivocal 0.90 - 0.99 Immune >0.99 Performed By: #### 1 [id number], [id number], [id number], [id number] #### [facility] [address] [place] [address] Varic IgGon 07-25-2023 VZV IgG IA Qn (S) 475 Invalid Interpretation Code Immune >165 [facility] Comment on above: Result Comment: Nega tive <135 Equivocal 135 - 165 Positive >165 A positive result generally indicates exposure to the pathogen or administration of specific immunoglobulins, but it is not indication of active infection or stage of disease. Performed at: [facility] [address] [place] [address] [id number] PhD Rubio Vinson Performed By: #### 1 [id number], [id number], [id number], [id number] #### [facility] [address] [place] [address] CNOVon 07-10-2023 CNOV Office Visit (ORFWHP ) ----- MADYSON SCHMID ([id number]) 2 F Date Time Provider Department 07/10/23 9:40 AM JOSE ARMANDO GREY ORFWHP During your visit today, we recorded the following information about you: Jose Armando Grey DO 07/10/2023 10:08 AM Signed [facility] Office Visit Documentation Note [facility] Sports Medicine Orthopaedic and Rheumatologic [place] HISTORY OF PRESENT ILLNESS (HPI) CHIEF COMPLAINT / REASON FOR VISIT SERVICE DATE: July 10, 2023 PCP: No primary care provider on file. Madysonlady Schmid is here today at request of Dr. Jose Armando Schmid specifically for consultation of my opinion in regards to the chief complaint listed below. Correspondence will be shared today via the [employer] electronic health record or through regular mail, [...] driving Activity level: Low Locking - araceli Madyson reports a current pain level of [...] the treatment plan. Jose Armando Grey D.O. [facility] Orthopaedic and Rheumatologic Shuttle Preparation Supervisor, [facility] AND [employer] Program Team Physician, [facility] Baseball Club Consulting Physician, Ceres Martin Nagel, [employer] Reports Developer [phone] Referring Provider: SELF [200] Allergies As of [...] Level of (more content not included)... Normal [facility] HEART ROUND TOPon 07-10 [facility] Tobacco Screening.on 023 Adult depression screening assessment No [facility] DO Work Phone: Tobacco use status [facility]PH[facility] b) No [facility] 600 DO Work Phone: Activated partial thrombopla stin time (aPTT) in platelet poor plasma by coagulation aOrdered By: Haris Martino on 06-08-2023 aPTT Coag (PPP) [Time] 28.9 s 25.1-36.5 [facility] Comment on above: A hematocrit value g reater than 55% may lead to inaccurate results in coagulation testing. Patients having hematocrit values >55% require a special collection tube for coagulation studies. Please contact the laboratory at [phone] for redraw instructions. Alanine aminotransferase [En zymatic activity/volume] in Serum or PlasmaOrdered By: Haris Martino on 06-08-2023 ALT [Catalytic activity/Vol] 42 U/L 7-52 [facility] Albumin [Mass/volume] in Ser um or Plasma by Bromocresol green (BCG) dye binding methoOrdered By: Haris Martino on 06-08-2023 Albumin BCG dye [Mass/Vol] 4.6 g/dL 3.5-5.7 [facility] Alkaline phosphatase [Enzyma tic activity/volume] in Serum or PlasmaOrdered By: Haris Martino on 06-08-2023 ALP [Catalytic activity/Vol] 78 U/L 34-104 [facility] Aspartate aminotransferase [ Enzymatic activity/volume] in Serum or PlasmaOrdered By: Haris Martino on 06-08-2023 AST [Catalytic activity/Vol] 22 U/L 13-39 [facility] Automated erythrocytes count in urine sediment (number/area)Ordered By: Haris Martino on 06-08-2023 RBC Auto (Urine sed) [#/Area] 5-9 [HPF] 0-4 [facility] Automated leukocytes count i n urine sediment (number/area)Ordered By: Haris Martino on 06-08-2023 WBC Auto (Urine sed) [#/Area] 3-4 [HPF] 0-4 [facility] Basophils Auto (Bld) [#/Vol] Ordered By: Haris Martino on 06-08-2023 Basophils (Bld) [#/Vol] 0.1 10*3/uL 0.0-0.2 [facility] Basophils/100 WBC Auto (Bld) Ordered By: Haris Martino on 06-08-2023 Basophils/100 WBC (Bld) 1.0 % . [facility] Bilirubin Test strip Ql (U)O rdered By: Haris Martino on 06-08-2023 Bilirubin Ql (U) Negative Negative [facility] Bilirubin.direct [Mass/volum e] in Serum or PlasmaOrdered By: Haris Martino on 06-08-2023 Bilirubin.direct [Mass/Vol] 0.10 mg/dL 0.03-0.18 [facility] Bilirubin.total [Mass/volume ] in Serum or PlasmaOrdered By: Haris Martino on 06-08-2023 Bilirubin [Mass/Vol] 0.4 mg/dL 0.3-1.0 [facility] Calcium [Mass/volume] in Ser um or PlasmaOrdered By: Haris Martino on 06-08-2023 Calcium [Mass/Vol] 9.4 mg/dL 8.6-10.3 [facility] Carbon dioxide, total [Moles /volume] in Serum or PlasmaOrdered By: Haris Martino on 06-08-2023 CO2 [Moles/Vol] 29.3 mmol/L 21.0-31.0 [facility] Chloride [Moles/volume] in S colin or PlasmaOrdered By: Haris Martino on 06-08-2023 Chloride [Moles/Vol] 104 mmol/L 98-107 [facility] Color Auto (U)Ordered By: Terrell red Salena on 06-08-2023 Color (U) Yellow Yellow [facility] Creatine kinase [Enzymatic a ctivity/volume] in Serum or PlasmaOrdered By: Haris Martino on 06-08-2023 CK [Catalytic activity/Vol] 55 U/L 30-223 [facility] Creatinine [Mass/volume] in Serum or PlasmaOrdered By: Haris Martino on 06-08-2023 Creatinine [Mass/Vol] 0.64 mg/dL 0.60-1.20 [facility] Eosinophils Auto (Bld) [#/Vo l]Ordered By: Haris Martino on 06-08-2023 Eosinophils (Bld) [#/Vol] 0.1 10*3/uL 0.0-0.45 [facility] Eosinophils/100 WBC Auto (Bl d)Ordered By: Haris Martino on 06-08-2023 Eosinophils/100 WBC (Bld) 0.8 % . [facility] Erythrocyte distribution wid th Auto (RBC) [Ratio]Ordered By: Haris Martino on 06-08-2023 Erythrocyte distribution width (RBC) [Ratio] 12.9 % 11.9-15.3 [facility] Fibrin D-dimer [Presence] in Platelet poor plasma by Latex agglutinationOrdered By: Haris Martino on 06-08-2023 Fibrin D-dimer LA Ql (PPP) < 200 ng/mL 0-243 [facility] Comment on above: The reference range [...] coagulation studies. Please contact the laboratory at [phone] for redraw instructions. Globulin Calc (S) [Mass/Vol] Ordered By: Haris Martino on 06-08-2023 Globulin (S) [Mass/Vol] 2.9 g/dL [facility] Glucose [Mass/volume] in Ser um or PlasmaOrdered By: Haris Martino on 06-08-2023 Glucose [Mass/Vol] 79 mg/dL 70-100 [facility] Comment on above: ADA recommended refe rence rangeRandom Glucose Reference Range is dependent on time and content of last meal. Glucose of more than 200 mg/dL in a nonstressed, ambulatory subject supports the diagnosis of Diabetes Mellitus. HCG ( test) IA.rapi d Ql (U)Ordered By: Haris Martino on 06-08-2023 HCG ( test) Ql (U) Negative [facility] Hematocrit Auto (Bld) [Volum e fraction]Ordered By: Haris Martino on 06-08-2023 Hematocrit (Bld) [Volume fraction] 42.4 % 34.0-46.4 [facility] Hemoglobin [Mass/volume] in BloodOrdered By: Haris Martino on 06-08-2023 Hemoglobin (Bld) [Mass/Vol] 14.5 g/dL 11.8-15.4 [facility] INR in Platelet poor plasma by Coagulation assayOrdered By: Haris Martino on 06-08-2023 INR Coag (PPP) [Relative time] 1.0 {INR} [facility] Comment on above: INR Therapeutic Rang [...] on 06-08-2023 Ketones (U) [Mass/Vol] Negative Negative [facility] Laboratory - UrinalysisOrder ed By: Haris Martino on 06-08-2023 Hyaline casts LM Ql (Urine sed) 0-8 [LPF] 0-8 [facility] Leukocytes [#/volume] correc matt for nucleated erythrocytes in Blood by Automated counOrdered By: Haris Martino on 06-08-2023 WBC corrected for nucl RBC Auto (Bld) [#/Vol] 8.3 10*3/uL 3.8-11.6 [facility] Lymphocytes Auto (Bld) [#/Vo l]Ordered By: Haris Martino on 06-08-2023 Lymphocytes (Bld) [#/Vol] 3.0 10*3/uL 1.00-4.8 [facility] Lymphocytes/100 WBC Auto (Bl d)Ordered By: Haris Martino on 06-08-2023 Lymphocytes/100 WBC (Bld) 36.0 % . [facility] MCH Auto (RBC) [Entitic mass ]Ordered By: Haris Martino on 06-08-2023 MCH (RBC) [Entitic mass] 29.4 pg 24.7-34.3 [facility] MCHC Auto (RBC) [Mass/Vol]Or dered By: Haris Martino on 06-08-2023 MCHC (RBC) [Mass/Vol] 34.2 g/dL 32.0-35.0 [facility] MCV Auto (RBC) [Entitic vol] Ordered By: Haris Martino on 06-08-2023 MCV (RBC) [Entitic vol] 85.9 fL 80-100 [facility] Monocyte distribution width [Entitic volume] in Blood by AutomatedOrdered By: Haris Martino on 06-08-2023 Monocyte distribution width Auto (Bld) [Entitic vol] 18.39 % 0.00-20.00 [facility] Monocytes Auto (Bld) [#/Vol] Ordered By: Haris Martino on 06-08-2023 Monocytes (Bld) [#/Vol] 0.5 10*3/uL 0.0-0.8 [facility] Monocytes/100 WBC Auto (Bld) Ordered By: Haris Martino on 06-08-2023 Monocytes/100 WBC (Bld) 6.6 % . [facility] Natriuretic peptide B [Mass/ Vol]Ordered By: Haris Martino on 06-08-2023 Natriuretic peptide B (Bld) [Mass/Vol] 9.0 pg/mL 5-100 [facility] Neutrophils Auto (Bld) [#/Vo l]Ordered By: Haris Martino on 06-08-2023 Neutrophils (Bld) [#/Vol] 4.6 10*3/uL 1.8-7.7 [facility] Neutrophils/100 WBC Auto (Bl d)Ordered By: Haris Martino on 06-08-2023 Neutrophils/100 WBC (Bld) 55.6 % . [facility] Nitrite Test strip Ql (U)Ord ered By: Haris Martino on 06-08-2023 Nitrite Ql (U) Negative Negative [facility] No Panel InformationOrdered By: Haris Martino on 06-08-2023 Estimated GFR (CKD-EPI) > 60.0 mL/Min [facility] Creatinine Clearance (Chem 155.50 [facility] Nucleated erythrocytes [Pres ence] in Blood by Automated countOrdered By: Haris Martino on 06-08-2023 Nucleated RBC Auto Ql (Bld) 0.1 /100{WBC} 0-0.5 [facility] Platelet mean volume Auto (B ld) [Entitic vol]Ordered By: Haris Martino on 06-08-2023 Platelet mean volume (Bld) [Entitic vol] 8.2 fL 6.3-10.7 [facility] Platelets Auto (Bld) [#/Vol] Ordered By: Haris Martino on 06-08-2023 Platelets (Bld) [#/Vol] 225 10*3/uL 150-450 [facility] Potassium [Moles/volume] in Serum or PlasmaOrdered By: Haris Martino on 06-08-2023 Potassium [Moles/Vol] 4.0 mmol/L 3.5-5.1 [facility] Protein Auto test strip (U) [Mass/Vol]Ordered By: Haris Martino on 06-08-2023 Protein (U) [Mass/Vol] Negative Negative [facility] Protein [Mass/volume] in Ser um or PlasmaOrdered By: Haris Martino on 06-08-2023 Protein [Mass/Vol] 7.5 g/dL 6.4-8.9 [facility] Prothrombin time (PT)Ordered By: Haris Martino on 06-08-2023 PT Coag (PPP) [Time] 12.2 s 9.0-12.9 [facility] Comment on above: A hematocrit value g reater than 55% may lead to inaccurate results in coagulation testing. Patients having hematocrit values >55% require a special collection tube for coagulation studies. Please contact the laboratory at [phone] for redraw instructions. RBC Auto (Bld) [#/Vol]Ordere d By: Haris Martino on 06-08-2023 RBC (Bld) [#/Vol] 4.94 10*6/uL 3.60-5.00 [facility] Serum or plasma albumin/glob ulin mass ratioOrdered By: Haris Martino on 06-08-2023 Albumin/Globulin [Mass ratio] 1.6 {ratio} [facility] Serum or plasma anion gap de terminationOrdered By: Haris Martino on 06-08-2023 Anion gap [Moles/Vol] 9.7 mmol/L 6.0-15.0 [facility] Serum or plasma non-glucuron idated bilirubin measurement (mass/volume)Ordered By: Haris Martino on 06-08-2023 Bilirubin.indirect [Mass/Vol] 0.3 mg/dL [facility] Sodium [Moles/volume] in Ser um or PlasmaOrdered By: Haris Martino on 06-08-2023 Sodium [Moles/Vol] 139 mmol/L 136-145 [facility] Specific gravity Auto test s trip (U) [Rel density]Ordered By: Haris aMrtino on 06-08-2023 Specific gravity (U) [Rel density] 1.015 1.001-1.03 0 [facility] Squamous epithelial cells de tection in urine sediment by light microscopyOrdered By: Haris Martino on 06-08-2023 Epithelial cells.squamous LM Ql (Urine sed) 3-4 [HPF] 0-2 [facility] Troponin I.cardiac [Mass/vol ume] in Serum or Plasma by Detection limit <= 0.01 ng/Ordered By: Haris Martino on 06-08-2023 Troponin I.cardiac DL <= 0.01 ng/mL [Mass/Vol] < 2.3 pg/mL 0.0-15.0 [facility] Urea nitrogen [Mass/volume] in Serum or PlasmaOrdered By: Haris Martino on 06-08-2023 Urea nitrogen [Mass/Vol] 10 mg/dL 7-25 [facility] Urine bacteria detection by automated methodOrdered By: Haris Martino on 06-08-2023 Bacteria Auto Ql (U) 1+ None Seen [facility] Urine clarity by refractomet ry automatedOrdered By: Haris Martino on 06-08-2023 Clarity Refractometry automated (U) Clear Clear [facility] Urine glucose measurement by automated test strip (mass/volume)Ordered By: Haris Martino on 06-08-2023 Glucose Auto test strip (U) [Mass/Vol] Normal mg/dL Normal [facility] Urine hemoglobin detection b y automated test stripOrdered By: Haris Martino on 06-08-2023 Hemoglobin Auto test strip Ql (U) Negative Negative [facility] Urine leukocyte esterase det ection by automated test stripOrdered By: Haris Martino on 06-08-2023 Leukocyte esterase Auto test strip Ql (U) 1+ Negative [facility] Urobilinogen Auto test strip (U) [Mass/Vol]Ordered By: Haris Martino on 06-08-2023 Urobilinogen (U) [Mass/Vol] Normal mg/dL Normal [facility] WBC Auto (Bld) [#/Vol]Ordere d By: Haris Martino on 06-08-2023 WBC (Bld) [#/Vol] 8.3 10*3/uL 3.8-11.6 [facility] pH Auto test strip (U)Ordere d By: Haris Martino on 06-08-2023 pH (U) 6.5 [pH] 5.0-9.0 [facility] Alanine aminotransferase [En zymatic activity/volume] in Serum or PlasmaOrdered By: Carlitos Nguyen on 04-25-2023 ALT [Catalytic activity/Vol] 18 U/L 7-52 [facility] Albumin [Mass/volume] in Ser um or Plasma by Bromocresol green (BCG) dye binding methoOrdered By: Carlitos Nguyen on 04-25-2023 Albumin BCG dye [Mass/Vol] 4.8 g/dL 3.5-5.7 [facility] Alkaline phosphatase [Enzyma tic activity/volume] in Serum or PlasmaOrdered By: Carlitos Nguyen on 04-25-2023 ALP [Catalytic activity/Vol] 73 U/L 34-104 [facility] Aspartate aminotransferase [ Enzymatic activity/volume] in Serum or PlasmaOrdered By: Carlitos Nguyen on 04-25-2023 AST [Catalytic activity/Vol] 18 U/L 13-39 [facility] Bilirubin.total [Mass/volume ] in Serum or PlasmaOrdered By: Carlitos Nguyen on 04-25-2023 Bilirubin [Mass/Vol] 0.5 mg/dL 0.3-1.0 [facility] Calcium [Mass/volume] in Ser um or PlasmaOrdered By: Carlitos Nguyen on 04-25-2023 Calcium [Mass/Vol] 9.9 mg/dL 8.6-10.3 [facility] Carbon dioxide, total [Moles /volume] in Serum or PlasmaOrdered By: Carlitos Nguyen on 04-25-2023 CO2 [Moles/Vol] 25.9 mmol/L 21.0-31.0 [facility] Chloride [Moles/volume] in S colin or PlasmaOrdered By: Carlitos Nguyen on 04-25-2023 Chloride [Moles/Vol] 105 mmol/L 98-107 [facility] Cholesterol [Mass/volume] in Serum or PlasmaOrdered By: Carlitos Nguyen on 04-25-2023 Cholesterol [Mass/Vol] 208 mg/dL 140-200 [facility] Comment on above: Chol less than 200 m g/dl low riskChol 201-239 mg/dl borderline riskChol 240 mg/dl and greater high risk Cholesterol in LDL Calc [Mas s/Vol]Ordered By: Carlitos Nguyen on 04-25-2023 Cholesterol in LDL [Mass/Vol] 136 mg/dL 0-100 [facility] Comment on above: LDL ATP III CLASSIFI CATIONLDL less than 100 mg/dL OptimalLDL 100-129 mg/dL Near or above optimalLDL 130-159 mg/dL Borderline highLDL 160-189 mg/dL HighLDL greater than 189 mg/dL Very high Cholesterol in VLDL Calc [Ma ss/Vol]Ordered By: Carlitos Nguyen on 04-25-2023 Cholesterol in VLDL [Mass/Vol] 16 mg/dL [facility] Creatinine [Mass/volume] in Serum or PlasmaOrdered By: Carlitos Nguyen on 04-25-2023 Creatinine [Mass/Vol] 0.81 mg/dL 0.60-1.20 [facility] Globulin Calc (S) [Mass/Vol] Ordered By: Carlitos Nguyen on 04-25-2023 Globulin (S) [Mass/Vol] 2.6 g/dL [facility] Glucose [Mass/volume] in Ser um or PlasmaOrdered By: Carlitos Nguyen on 04-25-2023 Glucose [Mass/Vol] 84 mg/dL 70-100 [facility] No Panel InformationOrdered By: Carlitos Nguyen on 04-25-2023 Estimated GFR (CKD-EPI) > 60.0 mL/Min [facility] Creatinine Clearance (Chem N/A [facility] Potassium [Moles/volume] in Serum or PlasmaOrdered By: Carlitos Nguyen on 04-25-2023 Potassium [Moles/Vol] 4.3 mmol/L 3.5-5.1 [facility] Comment on above: Hemolysis is present at a level that could interfere with the result. Protein [Mass/volume] in Ser um or PlasmaOrdered By: Carlitos Nguyen on 04-25-2023 Protein [Mass/Vol] 7.4 g/dL 6.4-8.9 [facility] Serum or plasma albumin/glob ulin mass ratioOrdered By: Carlitos Nguyen on 04-25-2023 Albumin/Globulin [Mass ratio] 1.8 {ratio} [facility] Serum or plasma anion gap de terminationOrdered By: Carlitos Nguyen on 04-25-2023 Anion gap [Moles/Vol] 12.4 mmol/L 6.0-15.0 [facility] Serum or plasma high density lipoprotein (HDL) cholesterol measurementOrdered By: Carlitos Nguyen on 04-25-2023 Cholesterol in HDL [Mass/Vol] 55 mg/dL 23- [facility] Comment on above: HDL CHOL ATP-III CLA SSIFICATION Cardiovascular RiskHDL > or equal to 60 mg/dL LOWHDL < 40 mg/dL HIGH Serum or plasma total choles terol/high density lipoprotein (HDL) cholesterol mass ratOrdered By: Carlitos Nguyen on 04-25-2023 Cholesterol.total/Chol esterol in HDL [Mass ratio] 3.8 {ratio} <5.0 [facility] Sodium [Moles/volume] in Ser um or PlasmaOrdered By: Carlitos Nguyen on 04-25-2023 Sodium [Moles/Vol] 139 mmol/L 136-145 [facility] Triglyceride [Mass/volume] i n Serum or PlasmaOrdered By: Carlitos Nguyen on 04-25-2023 Triglyceride [Mass/Vol] 83 mg/dL 0-149 [facility] Comment on above: TRIG ATP III CLASSIF ICATIONTRIG less than 150 mg/dL NormalTRIG 150-199 mg/dL Borderline highTRIG 200-500 mg/dL High TRIG greater than 500 mg/dL Very highStandard traceable to the Center for Disease Conrtrol and Prevention (CDC) test method. Urea nitrogen [Mass/volume] in Serum or PlasmaOrdered By: Carlitos Nguyen on 04-25-2023 Urea nitrogen [Mass/Vol] 15 mg/dL 7- [facility] Tobacco Screening.on 023 Adult depression screening assessment No [facility] 320 DO Work Phone: Fall risk assessment a) No falls within the last year [facility] [address] DO Work Phone: Tobacco use status [facility] b) No [facility] [address] DO Work Phone: Office Visit (Cardiology)on [...] in adult Healthy Weight Tips; Status:Complete; Done: [id number] SocHx: Never a smoker Tobacco Use Screening; Status:Complete; Done: [id number] Patient Instructions Please bring all medicines, vitamins, [...] she did get a second opinion in [place], and no change in medication was suggested [...] sinus sometime (more content not included)... Normal [employer] Tobacco Screening.on 022 Tobacco use status [facility] b) No [facility] 250 DO Work Phone: CardiovasStyky Arrhythmia Result son 07-31-2022 Cardiovasc Arrhythmia Results Reason For Visit MADYSON is here for the application of a [employer] monitor. Ordering Physician: Dr. Maza Diagnosis: abn TTT, dyspnea, syncope, autonomic orthostatic hypotension [facility] equipment agreement signed. MADYSON understands monitor is to be returned on: 08/14/22 Monitor number [id number] applied. Procedure Date I received for dictation [...] MD; Aug 28 2022 10:26AM EST Normal [place] [facility] Office Visit (Cardiology)on 07-21-2022 Follow-up visit Diagnoses/Problems [...] Dr. Chan Jiang in 1 week. ITammy, COIL WRAPPER, am scribing for and in the presence [...] heart murmur and has been transferred to [facility] There [...] cardiac data (more content not included)... Normal [employer] Tobacco Screening.on 022 Fall risk assessment b) One or more fall s in the last year [facility] [employer] DO Work Phone: Tobacco use status [facility] b) No [facility] [employer] DO Work Phone: Office Visit (Cardiology)on 07-10-2022 [...] Confirmed - N/A AMA Intake updated by [facility] ACCOUNT (INTRANET) on 2022-07-11 22:02 New Recipient: Annalee Maza New Appointment Date: 2022-07-21 07:20 Autonomic orthostatic hypotension, Syncope, unspecified syncope type Changed: From To Midodrine HCl - 10 MG Oral Tablet TAKE 1 TABLET 3 TIMES DAILY Class 1 obesity with body mass index (BMI) of 31.0 to 31.9 in adult Avoid getting up or changing positions quickly.; Status:Complete; Done: [id number] Healthy Weight Tips; Status:Complete; Done: [id number] Some eating tips that can help you lose weight.; Status:Complete; Done: [id number] Dyspnea (786.09) (R06.00) Class 1 obesity with [...] from 6 (more content not included)... Normal [employer] Tobacco Screening.on 022 Tobacco use status HS b) No -[facility] y 250 DO Work Phone: COVID CepheidOrdered By: Daniele Pearce on 06-01-2022 SARS-CoV-2 (COVID-19) Ab IA Ql Negative Negative [facility] Comment on above: This is a duplicate [employer] Xpert Xpress CoV-2/Flu/RSV Plus RNA by RT-PCR result to be used for statistical tracking purpose only. SARS-CoV-2 (COVID-19) RNA PERFECTO+probe Ql (Unsp spec) [facility] Office Visit (Cardiology)on 05-18-2022 Follow-up visit [...] in adult Healthy Weight Tips; Status:Complete; Done: [id number] Some eating tips that can help you lose weight.; Status:Complete; Done: 36Bgm9618 Dyspnea, Syncope, unspecified syncope type Urine Test; Status:Active - Retrospective By Protocol Authorization; Requested for:[id number]; Palpitation Start: Atenolol 25 MG Oral Tablet; TAKE 1 TABLET DAILY Syncope, unspecified syncope type Tilt Table; Status:Hold For - Scheduling,Retrospective By Protocol Authorization; Requested for:[id number]; Patient Instructions Please bring all medicines, vitamins, [...] walking to the bathroom. She will see cafeteria aide in the near future, she had her pulmonary function test which I reviewed, there is concern for chronic asthma, but no reactive airway disease. She has 3 dogs that she had, and 1 cat at home. She is not orthostatic. She is feeling palpitations quite a bit. Results of the pulmonary function test and a Micah [employer] was reviewed. Also reviewed stress test and [...] 3.5 c (more content not included)... Normal [employer] Tobacco Screening.on 022 Tobacco use status CPHS b) No [facility] y 250 DO Work Phone: No Panel Informationon 05-03 [facility] y 250 DO Work Phone: -[facility] 250 DO Work Phone: Cardiovasc Arrhythmia Result son 03-28-2022 Cardiovasc Arrhythmia Results Reason For Visit Event Monitor: MADYSON is here for the application of a 30 day event monitor in office., Diagnosis: Palps, Dyspnea, Chest pain Ordering Physician: Enrollment sent to: [employer] Monitor number [id number] applied. Holter monitor printed and placed on [...] (R06.00) Palpitation (785.1) (R00.2) Future Appointments Date/TimeProviderSpecialt [facility] 05/03/2022 10:00 AMMaría Elena Freire MDCardiologySurgery [facility] 05/18/2022 09:15 [facility]od[facility] Sylvester [facility]iology703 [facility] 250 DO Signatures Electronically signed by : Melodie Alcaraz MD; May 01 2022 7:56PM EST (Author) Normal [facility] - Chemistry and C hemistry - challengeOrdered By: Melodie Alcaraz on 03-24-2022 Natriuretic peptide B (Bld) [Mass/Vol] 27.0 pg/mL 5-100 [facility] No Panel InformationOrdered By: Melodie Alcaraz on 03-24-2022 D-Dimer Quantitative (PE/DVT) < 200 ng/mL 0-243 [facility] Comment on above: The reference range [...] No Panel Informationon 03-24 0.70\\S\\0.70 Normal 0.45-5.33 [facility] [employer] y 250 DO Work Phone: Comment on above: PERFORMED BY:[place] [address] [place], [place] [phone] MEDICAL DIRECTOROFE ELLIS M.D. 0.99\\S\\0.99 Normal 0.61-1.12 [facility] [employer] 250 DO Work Phone: 27.0\\S\\27.0 Normal 5-100 [facility] [employer] y 250 DO Work Phone: Comment on above: PERFORMED BY:[place] [address] [place], [place] [phone] MEDICAL JACQUES ELLIS M.D. < 200 Normal 0-243 [facility] [employer] 250 DO Work Phone: Comment on above: [...] in hospitalized patients due to co-morbid conditions.PERFORMED BY:[place] [address] [place], [place] [phone] MEDICAL DIRECTOROFE ELLIS M.D. TSH DL <= 0.005 mIU/L QnOrde red By: Melodie Alcaraz on 03-24-2022 TSH Qn 0.70 m[IU]/L 0.45-5.33 [facility] Thyroxine (T4) free [Mass/vo lume] in Serum or PlasmaOrdered By: Melodie Alcaraz on 03-24-2022 Free T4 [Mass/Vol] 0.99 ng/dL 0.61-1.12 [facility] Office Visit (Cardiology)on 03-23-2022 Follow-up [...] signing my name below, I, Margarita Bernstein LPN ,Christen, attest that this documentation has [...] twin brother had to be taken to [facility], and has history of heart murmur. [...] frequently pic (more content not included)... Normal [employer] [facility]-2022 Adult depression screening assessment No [facility] [employer] | [employer] y 250 DO Work Phone: Fall risk assessment c) Not medically indicated [facility] [employer] y 250 DO Work Phone: Tobacco use status CPHS b) No [facility] [employer] y 250 DO Work Phone: ARMANI BY IFA WITH REFLEXon Nuclear Ab IF (S) [Titer] Negative Negative [facility] CCP ANTIBODY IGGon Cyclic citrullinated peptide IgG Qn <15 <20 [facility] Cyclic citrullinated peptide IgG Qnon 01-26-2022 CCP Antibody IgG Qualitative Negative Negative [facility] Nuclear Ab IA Ql (S)on 01-26 ARMANI by EIA, Qual Negative Negative [facility] ARMANI BY IFA WITH REFLEXon Nuclear Ab IF (S) [Titer] Negative Normal Negative [facility] Comment on above: Order Comment: Speci men Type: BLOOD SPECIMEN Ordering Facility: [facility] Address: [address] [place] [address] Result Comment: Anti -nuclear antibody test is used as an aid in diagnosis of systemic autoimmune diseases. Where positive and clinically warranted, follow-up using disease-specific testing is recommended. Low positive titers are not uncommon with advanced age, certain chronic infections, and malignancies among others. Test methodology: Indirect fluorescence immunoassay (IFA) using HEp-2 cells. Performed By: #### A NAIFR #### [facility] CLIA [id number] [address] [place] [address] [place] C-REACTIVE PROTEIN (CRP)on 0 01-25-2022 CRP [Mass/Vol] 0.4 mg/dL <0.9 mg/dL [facility] C1 ESTERASE INHIBITon 2021 C1 ESTERASE INHIBIT 26 mg/dL Normal 21-38 [facility] Comment on above: Order Comment: Jose Carlos oseguera Type: BLOOD SPECIMEN Ordering Facility: [facility] Address: [address] [place] [address] Result Comment: Perf ormed By: [employer] [address] [place] [address] Energy Conservation Engineer: Brittni Moscoso MD Performed By: #### 1 6570-4, 38770-6, 24917-4, 18433-3, 55189-0, 93034-7, 89459-9, 23033-9 #### [facility] CLIA [id number] [address] [place] [address] [place] C2 COMPLEMENT BLDon 01-26-20 22 C2 COMPLEMENT 2.4 mg/dL Normal 1.6-4.0 [facility] Comment on above: Order Comment: Jose Carlos oseguera Type: BLOOD SPECIMEN Ordering Facility: [facility] Address: [address] [place] [address] Result Comment: INTE RPRETIVE INFORMATION: Complement Component 2 Decreased C2 levels may be associated with increased susceptibility to infection (especially pneumococcal infections), systemic lupus erythematosus-like disease, rashes, arthritis and nephritis, and with C1-Esterase deficiency. Increased C2 levels are associated with the acute phase response. This test was developed and its performance characteristics determined by [employer]. It has not been cleared or approved by the [place] Food and Drug Administration. This test was performed in a CLIA certified laboratory and is intended for clinical purposes. Performed By: [employer] [address] [place] [address] Energy Conservation Engineer: Brittni Moscoso MD Performed By: #### 1 6570-4, 53237-8, 06804-5, 98447-5, 38771-5, 35834-0, 16333-4, 48879-2 #### [facility] CLIA [id number] [address] [place] [address] [place] C3 COMPLEMENT BLDon 01-26-20 22 Complement C3 [Mass/Vol] 130 mg/dL 86 - 166 mg/dL [facility] C3 SerPl-ncon 01-25-2022 Complement C3 [Mass/Vol] 130 mg/dL Normal 86-166 [facility] Comment on above: Order Comment: Speci men Type: BLOOD SPECIMEN Ordering Facility: [facility] Address: [address] [place] [address] Performed By: #### 1 6570-4, 67116-2, 85038-2, 39213-3, 31298-0, 67168-4, 04606-1, 78526-0 #### [facility] CLIA [id number] [address] [place] [address] [place] C4 COMPLEMENT BLDon 01-26-20 22 Complement C4 [Mass/Vol] 30 mg/dL 13 - 46 mg/dL [facility] C4 SerPl-ncon 01-25-2022 Complement C4 [Mass/Vol] 30 mg/dL Normal 13-46 [facility] Comment on above: Order Comment: Speci men Type: BLOOD SPECIMEN Ordering Facility: [facility] Address: [address] [place] [address] Performed By: #### 1 6570-4, 51001-4, 21557-4, 93199-4, 10791-5, 11150-9, 69176-4, 99378-8 #### [facility] CLIA [id number] [address] [place] [address] [place] CBC panel Auto (Bld)on 01-25 Erythrocyte distribution width (RBC) [Ratio] 12.1 % Normal 11.5-15.0 [facility] Comment on above: Order Comment: Speci men Type: BLOOD SPECIMEN Ordering Facility: [facility] Address: [address] [place] [address] Performed By: #### 1 6570-4, 11117-9, 16540-3, 50547-5, 64241-1, 58573-7, 64267-2, 24168-7 #### [facility] CLIA [id number] [address] [place] [address] [place] Hematocrit (Bld) [Volume fraction] 42.6 % Normal 36.0-46.0 [facility] Comment on above: Order Comment: Speci men Type: BLOOD SPECIMEN Ordering Facility: [facility] Address: [address] [place] [address] Performed By: #### 1 6570-4, 24210-6, 02028-6, 42954-1, 00910-5, 81198-9, 41441-0, 84437-2 #### [facility] CLIA [id number] [address] [place] [address] [place] Hemoglobin (Bld) [Mass/Vol] 13.8 g/dL Normal 11.5-15.5 [facility] Comment on above: Order Comment: Speci men Type: BLOOD SPECIMEN Ordering Facility: [facility] Address: [address] [place] [address] Performed By: #### 1 6570-4, 01648-9, 23923-6, 19445-3, 13302-1, 44733-2, 75132-1, 96371-1 #### [facility] CLIA [id number] [address] [place] [address] [place] MCH (RBC) [Entitic mass] 28.3 pg Normal 26.0-34.0 [facility] Comment on above: Order Comment: Speci men Type: BLOOD SPECIMEN Ordering Facility: [facility] Address: [address] [place] [address] Performed By: #### 1 6570-4, 60951-7, 16114-0, 40612-9, 65424-7, 18344-4, 46047-6, 93849-4 #### [facility] [facility] CLIA [id number] [address] [place] [address] [place] MCHC (RBC) [Mass/Vol] 32.4 g/dL Normal 30.5-36.0 [facility] Comment on above: Order Comment: Speci men Type: BLOOD SPECIMEN Ordering Facility: [facility] Address: [address] [place] [address] Performed By: #### 1 6570-4, 71869-1, 12981-0, 48474-3, 46111-1, 81898-0, 43394-7, 31416-0 #### [facility] CLIA [id number] [address] [place] [address] [place] MCV (RBC) [Entitic vol] 87.3 fL Normal 80.0-100.0 [facility] Comment on above: Order Comment: Speci men Type: BLOOD SPECIMEN Ordering Facility: [facility] Address: [address] [place] [address] Performed By: #### 1 6570-4, 85076-1, 67869-1, 73827-8, 41587-1, 98113-8, 89856-1, 49184-7 #### [facility] CLIA [id number] [address] [place] [address] [place] Nucleated RBC (Bld) [#/Vol] 10*3/uL Normal <0.01 [facility] Comment on above: Order Comment: Speci men Type: BLOOD SPECIMEN Ordering Facility: [facility] Address: [address] [place] [address] Performed By: #### 1 6570-4, 10498-5, 12974-5, 94027-4, 35751-4, 34186-2, 39493-6, 40948-2 #### [facility] CLIA [id number] [address] [place] [address] [place] Platelet mean volume (Bld) [Entitic vol] 10.3 fL Normal 9.0-12.7 [facility] Comment on above: Order Comment: Speci men Type: BLOOD SPECIMEN Ordering Facility: [facility] Address: [address] [place] [address] Performed By: #### 1 6570-4, 20754-6, 76882-9, 29965-7, 37974-7, 28640-3, 12206-7, 35367-9 #### [facility] CLIA [id number] [address] [place] [address] [place] Platelets (Bld) [#/Vol] 213 10*3/uL Normal 150-400 [facility] Comment on above: Order Comment: Speci men Type: BLOOD SPECIMEN Ordering Facility: [facility] Address: [address] [place] [address] Performed By: #### 1 6570-4, 45366-5, 59323-3, 41070-6, 82678-3, 73865-5, 35477-3, 86876-8 #### [facility] CLIA [id number] [address] [place] [address] [place] RBC (Bld) [#/Vol] 4.88 10*6/uL Normal 3.90-5.20 [facility] Comment on above: Order Comment: Speci men Type: BLOOD SPECIMEN Ordering Facility: [facility] Address: [address] [place] [address] Performed By: #### 1 6570-4, 36670-1, 35479-7, 72335-0, 07828-5, 09860-5, 98549-2, 51527-9 #### [facility] CLIA [id number] [address] [place] [address] [place] WBC (Bld) [#/Vol] 4.77 10*3/uL Normal 3.70-11.00 [facility] Comment on above: Order Comment: Speci men Type: BLOOD SPECIMEN Ordering Facility: [facility] Address: [address] [place] [address] Performed By: #### 1 6570-4, 03486-5, 28702-4, 06932-3, 20801-3, 17048-3, 62631-5, 24300-6 #### [facility] CLIA [id number] [address] [place] [address] [place] Erythrocyte distribution width (RBC) [Ratio] 12.1 % 11.5 - 15.0 % [facility] Hematocrit (Bld) [Volume fraction] 42.6 % 36.0 - 46.0 % [facility] Hemoglobin (Bld) [Mass/Vol] 13.8 g/dL 11.5 - 15.5 g/dL [facility] MCH (RBC) [Entitic mass] 28.3 pg 26.0 - 34.0 pg [facility] MCHC (RBC) [Mass/Vol] 32.4 g/dL 30.5 - 36.0 g/dL [facility] MCV (RBC) [Entitic vol] 87.3 fL 80.0 - 100.0 fL [facility] Nucleated RBC (Bld) [#/Vol] 10*3/uL <0.01 k/uL [facility] Platelet mean volume (Bld) [Entitic vol] 10.3 fL 9.0 - 12.7 fL [facility] Platelets (Bld) [#/Vol] 213 10*3/uL 150 - 400 k/uL [facility] RBC (Bld) [#/Vol] 4.88 10*6/uL 3.90 - 5.20 m/uL [facility] WBC (Bld) [#/Vol] 4.77 10*3/uL 3.70 - 11.00 k/uL [facility] CRP [Mass/Vol] 0.4 mg/dL Normal <0.9 [facility] Comment on above: Order Comment: Speci men Type: BLOOD SPECIMEN Ordering Facility: [facility] Address: [address] [place] [address] Performed By: #### 1 6570-4, 96115-8, 34777-0, 85238-0, 27360-8, 68440-6, 65778-5, 30403-7 #### [facility] CLIA [id number] [address] [place] [address] [place] Centromere Ab IF Ql (S)on Centromere Ab Qn (S) <0.2 Normal <1.0 [facility] Comment on above: Order Comment: Horacioi ana rosa Type: BLOOD SPECIMEN Ordering Facility: [facility] Address: [address] [place] [address] Result Comment: Anti -centromere antibody is used as in aid in diagnosis of systemic sclerosis. Clinical correlation is required. Test Methodology: Multiplex flow immunoassay. Performed By: #### 1 6570-4, 95010-0, 85741-8, 75309-7, 15332-2, 56150-9, 05356-1, 66786-7 #### [facility] CLIA [id number] [address] [place] [address] [place] CENTROMERE AB QUAL Negative Normal Negative [facility] Comment on above: Order Comment: Speci men Type: BLOOD SPECIMEN Ordering Facility: [facility] Address: [address] [place] [address] Performed By: #### 1 6570-4, 40081-3, 25869-5, 90530-9, 87257-5, 04594-0, 12501-1, 74649-6 #### [facility] CLIA [id number] [address] [place] [address] [place] Chromatin Ab Qnon 01-25-2022 CHROMATIN AB QUAL Negative Normal Negative [facility] Comment on above: Order Comment: Speci men Type: BLOOD SPECIMEN Ordering Facility: [facility] Address: [address] [place], [place] [address] Performed By: #### 1 6570-4, 43828-5, 03352-6, 39987-0, 50192-6, 32893-2, 31174-1, 83514-1 #### [facility] CLIA [id number] [address] [place] [address] [place] Chromatin Ab SerPl-aCncon Chromatin Ab Qn <0.2 Normal <1.0 [facility] Comment on above: Order Comment: Speci men Type: BLOOD SPECIMEN Ordering Facility: [facility] Address: [address] [place] [address] Result Comment: Test Methodology: Multiplex flow immunoassay. Performed By: #### 1 6570-4, 62138-0, 82635-9, 04667-3, 35696-2, 54230-6, 11817-7, 30679-0 #### [facility] CLIA [id number] [address] [place] [address] OF [facility] Comprehensive metabolic 2000 panelon 01-25-2022 Albumin [Mass/Vol] 4.5 g/dL 3.9 - 4.9 g/dL [facility] ALP [Catalytic activity/Vol] 65 U/L 34 - 123 U/L [facility] ALT [Catalytic activity/Vol] 14 U/L 7 - 38 U/L [facility] Anion gap [Moles/Vol] 11 mmol/L 9 - 18 mmol/L [facility] AST [Catalytic activity/Vol] 14 U/L 13 - 35 U/L [facility] Bilirubin [Mass/Vol] 0.3 mg/dL 0.2 - 1 .3 mg/dL [facility] Calcium [Mass/Vol] 9.5 mg/dL 8.5 - 10. 2 mg/dL [facility] Chloride [Moles/Vol] 105 mmol/L 97 - 10 5 mmol/L [facility] CO2 [Moles/Vol] 26 mmol/L 22 - 30 mmol/L [facility] Creatinine [Mass/Vol] 0.71 mg/dL 0.58 - 0.96 mg/dL [facility] Estimated Glomerular Filtration Rate 125 mL/min/1.73m >=60 mL/min/1.7 3m [facility] Glucose [Mass/Vol] 94 mg/dL 74 - 99 mg/dL [facility] Potassium [Moles/Vol] 4.6 mmol/L 3.7 - 5.1 mmol/L [facility] Protein [Mass/Vol] 7.2 g/dL 6.3 - 8.0 g/dL [facility] Sodium [Moles/Vol] 142 mmol/L 136 - 144 mmol/L [facility] Urea nitrogen [Mass/Vol] 8 mg/dL 7 - 21 mg/dL [facility] Albumin [Mass/Vol] 4.5 g/dL Normal 3.9-4.9 [facility] Comment on above: Order Comment: Speci men Type: BLOOD SPECIMEN Ordering Facility: [facility] Address: [address] [place] [address] Performed By: #### 1 6570-4, 45036-4, 09482-9, 31790-7, 28930-1, 93845-6, 83332-1, 75583-3 #### [facility] CLIA [id number] [address] [place] [address] [place] ALP [Catalytic activity/Vol] 65 U/L Normal 34-123 [facility] Comment on above: Order Comment: Speci men Type: BLOOD SPECIMEN Ordering Facility: [facility] Address: [address] [place] [address] Performed By: #### 1 6570-4, 69652-6, 35167-8, 09010-4, 26856-3, 03035-7, 70861-8, 54024-8 #### [facility] CLIA [id number] [address] [place] [address] [place] ALT [Catalytic activity/Vol] 14 U/L Normal 7-38 [facility] Comment on above: Order Comment: Speci men Type: BLOOD SPECIMEN Ordering Facility: [facility] Address: [address] [place] [address] Performed By: #### 1 6570-4, 29013-7, 61221-6, 98520-9, 83094-2, 58323-8, 09110-5, 67534-6 #### [facility] CLIA [id number] [address] [place] [address] [place] Anion gap [Moles/Vol] 11 mmol/L Normal 9-18 [facility] Comment on above: Order Comment: Speci men Type: BLOOD SPECIMEN Ordering Facility: [facility] Address: [address] [place] [address] Performed By: #### 1 6570-4, 02248-6, 03317-4, 81764-9, 57483-9, 31276-6, 59422-8, 97840-6 #### [facility] CLIA [id number] [address] [place] [address] [place] AST [Catalytic activity/Vol] 14 U/L Normal 13-35 [facility] Comment on above: Order Comment: Speci men Type: BLOOD SPECIMEN Ordering Facility: [facility] Address: [address] [place] [address] Performed By: #### 1 6570-4, 95974-5, 95306-9, 59405-8, 00067-4, 35105-1, 78586-9, 07970-7 #### [facility] CLIA [id number] [address] [place] [address] [place] Bilirubin [Mass/Vol] 0.3 mg/dL Normal 0.2-1.3 [facility] Comment on above: Order Comment: Speci men Type: BLOOD SPECIMEN Ordering Facility: [facility] Address: [address] [place] [address] Performed By: #### 1 6570-4, 49575-1, 25290-1, 47412-6, 58880-9, 39846-4, 42029-6, 49492-9 #### [facility] CLIA [id number] [address] [place] [address] [place] Calcium [Mass/Vol] 9.5 mg/dL Normal 8.5-10.2 [facility] Comment on above: Order Comment: Speci men Type: BLOOD SPECIMEN Ordering Facility: [facility] Address: [address] [place] [address] Performed By: #### 1 6570-4, 25559-8, 23040-9, 27645-9, 89976-5, 17617-4, 58067-6, 89342-0 #### [facility] CLIA [id number] [address] [place] [address] [place] Chloride [Moles/Vol] 105 mmol/L Normal 97-105 [facility] Comment on above: Order Comment: Speci men Type: BLOOD SPECIMEN Ordering Facility: [facility] Address: [address] [place] [address] Performed By: #### 1 6570-4, 61460-4, 93913-3, 39749-5, 38580-9, 76058-5, 19742-8, 07812-1 #### [facility] CLIA [id number] [address] [place] [address] [place] CO2 [Moles/Vol] 26 mmol/L Normal 22-30 [facility] Comment on above: Order Comment: Speci men Type: BLOOD SPECIMEN Ordering Facility: [facility] Address: [address] [place], [place] [id number] Performed By: #### 1 6570-4, 59113-9, 72500-0, 46094-6, 98888-4, 39114-4, 51658-6, 83097-0 #### [facility] CLIA [id number] [address] [place] [address] [place] Creatinine [Mass/Vol] 0.71 mg/dL Normal 0.58-0.96 [facility] Comment on above: Order Comment: Speci men Type: BLOOD SPECIMEN Ordering Facility: [facility] Address: [address] [place], [place] [id number] Performed By: #### 1 6570-4, 53910-2, 20907-2, 98974-3, 77044-9, 68645-9, 04885-5, 40180-5 #### [facility] CLIA [id number] [address] [place] [address] [place] ESTIMATED GLOMERULAR FILTRATION RATE 125 mL/min/1.73m??? Normal >=60 [facility] Comment on above: Order Comment: Jose Carlos oseguera Type: BLOOD SPECIMEN Ordering Facility: [facility] Address: [address] [place], [place] [id number] Result Comment: Francesca mated Glomerular Filtration Rate [...] actual GFR. Performed By: #### 1 6570-4, 14000-4, 89396-9, 33752-5, 23026-5, 06404-1, 17476-2, 74205-6 #### [facility] CLIA [id number] [address] [place] [address] [place] Glucose [Mass/Vol] 94 mg/dL Normal 74-99 [facility] Comment on above: Order Comment: Jose Carlos oseguera Type: BLOOD SPECIMEN Ordering Facility: [facility] Address: [address] [place], [place] [id number] Result Comment: The [place] [employer] (ADA) provides guidance for cutoff [...] Standards of Medical Care in Diabetes 2016, [place] [employer]. Diabetes Care. 2016.39(Suppl 1). Performed By: #### 1 6570-4, 89233-2, 46140-5, 32561-4, 71624-8, 71812-2, 81735-0, 07642-7 #### [facility] CLIA [id number] [address] [place] [address] [place] Potassium [Moles/Vol] 4.6 mmol/L Normal 3.7-5.1 [facility] Comment on above: Order Comment: Speci men Type: BLOOD SPECIMEN Ordering Facility: [facility] Address: [address] [place] [address] Performed By: #### 1 6570-4, 26224-2, 08801-9, 48151-5, 95330-5, 02525-6, 69218-8, 99893-4 #### [facility] CLIA [id number] [address] [place] [address] [place] Protein [Mass/Vol] 7.2 g/dL Normal 6.3-8.0 [facility] Comment on above: Order Comment: Speci men Type: BLOOD SPECIMEN Ordering Facility: [facility] Address: [address] [place] [address] Performed By: #### 1 6570-4, 19907-0, 67747-1, 56943-5, 90657-7, 20849-5, 48024-5, 49384-8 #### [facility] CLIA [id number] [address] [place] [address] [place] Sodium [Moles/Vol] 142 mmol/L Normal 136-144 [facility] Comment on above: Order Comment: Speci men Type: BLOOD SPECIMEN Ordering Facility: [facility] Address: [address] [place] [address] Performed By: #### 1 6570-4, 92696-8, 53911-0, 96119-0, 96066-0, 79530-5, 47545-7, 36568-5 #### [facility] CLIA [id number] [address] [place] [address] [place] Urea nitrogen [Mass/Vol] 8 mg/dL Normal 7-21 [facility] Comment on above: Order Comment: Speci men Type: BLOOD SPECIMEN Ordering Facility: [facility] Address: [address] [place] [address] Performed By: #### 1 6570-4, 95803-7, 17091-4, 44738-6, 91972-0, 55589-0, 60162-0, 10807-3 #### [facility] CLIA [id number] [address] [place] [address] [place] Cyclic citrullinated peptide IgG Qnon 01-25-2022 CCP ANTIBODY IGG QUALITATIVE Negative Normal Negative [facility] Comment on above: Order Comment: Speci men Type: BLOOD SPECIMEN Ordering Facility: [facility] Address: [address] [place] [address] Performed By: #### 1 6570-4, 62169-4, 51403-5, 07215-9, 55738-1, 59352-7, 68351-4, 19807-2 #### [facility] CLIA [id number] [address] [place] [address] [place] JASON Jo1 Ab Ser-aCncon 2021 Yuly-1 extractable nuclear Ab Qn (S) <0.2 Normal <1.0 [facility] Comment on above: Order Comment: Speci men Type: BLOOD SPECIMEN Ordering Facility: [facility] Address: [address] [place] [address] Performed By: #### 1 6570-4, 14226-5, 41574-8, 30561-3, 30188-0, 97441-6, 10741-2, 23631-3 #### [facility] CLIA [id number] [address] [place] [address] [place] J[place]ON CARROTER Ab Ser-aCncon 2021 Ribonucleoprotein extractable nuclear Ab Qn (S) <0.2 Normal <1.0 [facility] Comment on above: Order Comment: Speci men Type: BLOOD SPECIMEN Ordering Facility: [facility] Address: [address] [place] [address] Performed By: #### 1 6570-4, 04025-6, 34149-7, 16092-0, 42501-7, 39064-4, 98623-0, 04078-1 #### [facility] CLIA [id number] [address] [place] [address] OF [place] SM IgG Ser-aCncon 2021 Cota extractable nuclear IgG Qn (S) <0.2 Normal <1.0 [facility] Comment on above: Order Comment: Speci men Type: BLOOD SPECIMEN Ordering Facility: [facility] Address: [address] [place] [address] Performed By: #### 1 6570-4, 49238-4, 11796-1, 73389-5, 52923-0, 25929-9, 17975-9, 82611-8 #### [facility] CLIA [id number] [address] [place] [address] [place] SS-A Ab Ser-aCncon 01-25 Sjogrens syndrome-A extractable nuclear Ab Qn (S) <0.2 Normal <1.0 [facility] Comment on above: Order Comment: Speci men Type: BLOOD SPECIMEN Ordering Facility: [facility] Address: [address] [place] [address] Result Comment: Test Methodology: Multiplex flow immunoassay. Performed By: #### 1 6570-4, 61202-3, 73718-9, 32932-2, 11724-1, 48259-5, 85531-2, 14807-1 #### [facility] CLIA [id number] [address] [place] [address] [place] JASON SS-B Ab Ser-aCncon 01-25 Sjogrens syndrome-B extractable nuclear Ab Qn (S) <0.2 Normal <1.0 [facility] Comment on above: Order Comment: Speci men Type: BLOOD SPECIMEN Ordering Facility: [facility] Address: [address] [place] [address] Result Comment: Anti -SSB (anti-La) antibody is used as an aid in diagnosis of a variety of systemic autoimmune diseases, especially for Sjogren's syndrome and systemic lupus erythematosus. Clinical correlation is required. Test Methodology: Multiplex flow immunoassay. Performed By: #### 1 6570-4, 60666-1, 55388-5, 69674-3, 30388-5, 43588-9, 82622-8, 64734-6 #### [facility] CLIA [id number] [address] [place] [address] [place] ESR Westergren method (Bld) [Velocity]on 01-25-2022 ESR (Bld) [Velocity] 2 mm/h 0 - 20 mm/hr [facility] ESR (Bld) [Velocity] 2 mm/h Normal 0-20 [facility] Comment on above: Order Comment: Speci men Type: BLOOD SPECIMEN Ordering Facility: [facility] Address: [address] [place] [address] Performed By: #### 1 6570-4, 41613-3, 61939-7, 30031-0, 64010-9, 01762-6, 28227-0, 41849-4 #### [facility] CLIA [id number] [address] [place] [address] [place] HBV core Ab Ser Qlon 022 HBV core Ab Ql (S) Negative Normal Negative [facility] Comment on above: Order Comment: Speci men Type: BLOOD SPECIMEN Ordering Facility: [facility] Address: [address] [place] [address] Result Comment: No e vidence of current or past infection with Hepatitis B virus. Should recent infection be suspected, repeat testing may be considered 3-4 weeks after this draw. Performed By: #### 1 6570-4, 06957-8, 25283-0, 36629-0, 06136-0, 80266-4, 11836-9, 48276-6 #### [facility] CLIA [id number] [address] [place] [address] OF [place] HBV surface Ab IA Ql (S)on 0 01-25-2022 HBV surface Ag Ql (S) Negative Normal Negative [facility] Comment on above: Order Comment: Speci men Type: BLOOD SPECIMEN Ordering Facility: [facility] Address: [address] [place] [address] Performed By: #### 1 6570-4, 57524-2, 32447-7, 98789-8, 35268-3, 22208-6, 92965-0, 18566-3 #### [facility] CLIA [id number] [address] [place] [address] HBV surface Ab Ser Qlon HBV surface Ab Ql (S) Negative Normal Negative [facility] Comment on above: Order Comment: Speci men Type: BLOOD SPECIMEN Ordering Facility: [facility] Address: [address] [place] [address] Result Comment: No e vidence of current or past infection with Hepatitis B virus. Should recent infection be suspected, repeat testing may be considered 3-4 weeks after this draw. Performed By: #### 1 6570-4, 10128-6, 72966-0, 77936-5, 74381-7, 62025-2, 45000-4, 04086-3 #### [facility] CLIA [id number] [address] [place] [address] OF [facility] HCV Ab Ser Qlon 01-25-2022 HCV Ab Ql (S) Negative Normal Negative [facility] Comment on above: Order Comment: Speci men Type: BLOOD SPECIMEN Ordering Facility: [facility] Address: [address] [place] [address] Result Comment: The result suggests no evidence of active infection with Hepatitis C virus. Should recent infection be suspected, repeat testing may be considered 4-6 weeks after this draw. Performed By: #### 1 6570-4, 79369-8, 70125-5, 96967-2, 25414-3, 06594-2, 30080-0, 05922-9 #### [facility] CLIA [id number] [address] [place] [address] [place] Yuly-1 extractable nuclear Ab Qn (S)on 01-25-2022 YULY 1 ANTIBODY QUAL Negative Normal Negative [facility] Comment on above: Order Comment: Specyelitza oseguera Type: BLOOD SPECIMEN Ordering Facility: [facility] Address: [address] [place] [address] Result Comment: Anti -YULY-1 antibody is used as an aid in diagnosis of polymyositis and dermatomyositis especially with pulmonary involvement. A negative result cannot rule out polymyositis or dermatomyositis. Clinical correlation is required. Test Methodology: Multiplex flow immunoassay. Performed By: #### 1 6570-4, 36705-0, 59867-6, 05670-0, 68382-0, 62802-3, 83789-9, 10585-8 #### [facility] CLIA [id number] [address] [place] [address] [place] Nuclear Ab IA Ql (S)on 01-25 ARMANI BY EIA, QUAL Negative Normal Negative Rosemary schmitz Comment on above: Order Comment: Jose Carlos oseguera Type: BLOOD SPECIMEN Ordering Facility: [facility] Address: [address] [place] [address] Result Comment: The qualitative antinuclear antibody screen test performed using enzyme immunoassay including the following antigens: dsDNA, histones, SS-A, SS-B, Sm, Sm/CARROTER, Scl-70, Yuly-1, and centromeric antigens. Performed By: #### 1 6570-4, 27897-2, 15707-3, 99794-9, 68686-7, 21239-5, 07010-1, 97572-5 #### [facility] CLIA [id number] [address] [place] [address] [place] RHEUMATOID FACTOR BLon 01-25 Rheumatoid factor Qn [IU]/mL <16 IU/mL [facility] [place] Rheumatoid factor Qn [IU]/mL Normal <16 [facility] Comment on above: Order Comment: Specyelitza oseguera Type: BLOOD SPECIMEN Ordering Facility: [facility] Address: [address] [place] [address] Performed By: #### 1 6570-4, 44104-7, 28970-7, 70679-5, 01902-6, 47420-1, 88221-6, 66752-3 #### [facility] CLIA [id number] [address] [place] [address] [place] Ribonucleoprotein extractabl e nuclear Ab Qn (S)on 01-25-2022 ANTI-CARROTER QUAL Negative Normal Negative [facility] Comment on above: Order Comment: Jose Carlos oseguera Type: BLOOD SPECIMEN Ordering Facility: [facility] Address: [address] [place] [address] Performed By: #### 1 6570-4, 77834-0, 30190-1, 00540-0, 76941-0, 39031-8, 65837-5, 05937-9 #### [facility] CLIA [id number] [address] [place] [address] [place] RIBOSOMAL CARROTER QUAL Negative Normal Negative [facility]spital Comment on above: Order Comment: Jose Carlos oseguera Type: BLOOD SPECIMEN Ordering Facility: [facility] Address: [address] [place] [address] Result Comment: Anti -Ribosomal RNA (Ribosomal P) antibody is used as an aid in diagnosis of systemic autoimmune diseases especially systemic lupus erythematosus and mixed connective tissue disease. Cross-reactivity with Anti-cota antibody is not uncommon. Clinical correlation is required. Test Methodology: Multiplex flow immunoassay. Performed By: #### 1 6570-4, 57068-6, 74576-8, 23947-3, 15624-1, 63104-5, 09581-1, 11162-6 #### [facility] [place] [id number] [address] [place] [address] [place] SCL-70 extractable nuclear I gG IA Qn (S)on 01-25-2022 SCLERODERMA AB QUAL Negative Normal Negative [facility] Comment on above: Order Comment: Speci [facility] Type: BLOOD SPECIMEN Ordering Facility: [facility] Address: [address] [place] [address] Performed By: #### 1 6570-4, 09990-0, 28058-0, 06310-6, 41653-5, 31928-6, 21118-1, 50416-4 #### [facility] [place] [id number] [address] [place] [address] [place] SCLERODERMA IGG AB <0.2 Normal <1.0 [facility] Comment on above: Order Comment: Speci [facility] Type: BLOOD SPECIMEN Ordering Facility: [facility] Address: [address] [place] [address] Result Comment: Scl- 70/Scleroderma antibody test is used as an aid in diagnosis of systemic sclerosis especially the diffuse cutaneous form. A negative result cannot rule out systemic sclerosis. The final interpretation should consider clinical picture and other test results such as anti-centromere antibody. Test Methodology: Multiplex flow immunoassay. Performed By: #### 1 6570-4, 49281-8, 59944-8, 31809-9, 50002-1, 42758-7, 58302-2, 64619-0 #### [facility] [place] [id number] [address] [place] [address] [place] Sjogrens syndrome-A extracta ble nuclear Ab Qn (S)on 01-25-2022 SSA ANTIBODY QUAL Negative Normal Negative [facility] Comment on above: Order Comment: Speci [facility] Type: BLOOD SPECIMEN Ordering Facility: [facility] Address: [address] [place] [address] Performed By: #### 1 6570-4, 39771-3, 10458-5, 95246-6, 82435-6, 19957-4, 74013-7, 52473-4 #### [facility] CLIA [id number] [address] [place] [address] [place] Sjogrens syndrome-B extracta ble nuclear Ab Qn (S)on 01-25-2022 SSB ANTIBODY QUAL Negative Normal Negative [facility] Comment on above: Order Comment: Speci men Type: BLOOD SPECIMEN Ordering Facility: [facility] Address: [address] [place] [address] Performed By: #### 1 6570-4, 23043-0, 04593-5, 54160-5, 44175-5, 65932-4, 90508-3, 25230-6 #### [facility] CLIA [id number] [address] [place] [address] Cota extractable nuclear Ig G Qn (S)on 01-25-2022 SM ANTIBODY QUAL Negative Normal Negative [facility] Comment on above: Order Comment: Speci men Type: BLOOD SPECIMEN Ordering Facility: [facility] Address: [address] [place] [address] Result Comment: Anti -Sm (Cota) antibody is used as an aid in diagnosis of systemic lupus erythematosus and its presence is associated with renal disease. A negative result cannot rule out systemic lupus erythematosus. Clinical correlation is required. Test Methodology: Multiplex flow immunoassay. Performed By: #### 1 6570-4, 91132-6, 65811-1, 32410-1, 37899-4, 73640-7, 67722-4, 97339-1 #### [facility] CLIA [id number] [address] [place] [address] [place] cCP IgG SerPl-aCncon 022 Cyclic citrullinated peptide IgG Qn <15 Normal <20 [facility] Comment on above: Order Comment: Speci men Type: BLOOD SPECIMEN Ordering Facility: [facility] Address: [address] [place] [address] Performed By: #### 1 6570-4, 97297-0, 08648-6, 46310-4, 24203-4, 63113-2, 49264-0, 66208-8 #### [facility] CLIA [id number] [address] [address] [place] XR ankle LT min 3V*on 2021 XR ankle LT min 3V* [facility] [employer] [facility] [employer] Other XR ankle LT min 3V* [facility] [employer] Other XR ankle LT min 3V* [address] [place] [address] [employer] Other XR ankle LT min 3V* [place] [address] [employer] Other XR ankle LT min 3V* XRay Report Nort [employer] Other XR ankle LT min 3V* Signed [employer] Other XR ankle LT min 3V* Patient: Madyson Schmid MR#: [id number] [employer] Other XR ankle LT min 3V* : 2000 Acct:[id number] [employer] Other XR ankle LT min 3V* Age/Sex: 20 / F ADM Date: 10/10/21 [employer] Other XR ankle LT min 3V* Loc: XDUCLY Room: pe: [facility] [employer] Other XR ankle LT min 3V* Attending Dr: Christina GONZALEZ [employer] Other XR ankle LT min 3V* Ordering Provider: CARLOS Santos [employer] Other XR ankle LT min 3V* Date of Service: 10/10/21 [employer] Other XR ankle LT min 3V* XR/XR ankle LT min 3V*: Acute left ankle pain [employer] Other XR ankle LT min 3V* Copies to: JULIUS BeckmanC [employer] Other XR ankle LT min 3V* Left ankle 10/10/2021. [employer] Other XR ankle LT min 3V* CLINICAL DATA: Left ankle pain after twisting injury. [employer] Other XR ankle LT min 3V* FINDINGS: 3 views of the left ankle were obtained. [employer] Other XR ankle LT min 3V* No acute fracture or dislocation is identified. No other bony abnormality is seen. Anterolateral [employer] Other XR ankle LT min 3V* soft tissue swelling is noted. [employer] Other XR ankle LT min 3V* X R/XR ankle LT min 3V* [employer] Other XR ankle LT min 3V* IMPRESSION: Soft tis cody swelling. No acute bony abnormality. [employer] Other XR ankle LT min 3V* Impression dictated by: Erick Cueto Jr., M.D.10/10/2021 4:24 PM [employer] Other XR ankle LT min 3V* Dictation Location: [place] [address] [employer] Other XR ankle LT min 3V* Transcribed By: MIRELLA 10/10/21 [facility] [employer] Other XR ankle LT min 3V* Dictated By: Erick Cueto Jr, MD 10/10/21 [facility] [employer] Other XR ankle LT min 3V* Signed By: [employer] Other XR ankle LT min 3V* 10/10/21 1624 No rth [employer] Other Vital Signs Date Time Vital Sign Value Performing Clinician Facility 11-10-2024 09:08-0500 Body mass index (BMI) [Ratio] 38.94 kg/m2 Osei Helena DO Work Phone: [facility] 11-10-2024 09:08-0500 Body weight 106.14 kg Osei Helena DO Work Phone: [facility] 11-10-2024 09:08-0500 Diastolic blood pressure 70 mm[Hg] Osei Helena DO Work Phone: [facility] 11-10-2024 09:08-0500 Systolic blood pressure 130 mm[Hg] Osei Helena DO Work Phone: [facility] 10-29-2024 16:23-0500 Body mass index (BMI) [Ratio] 38.27 kg/m2 Osei Helena DO Work Phone: [facility] 10-29-2024 16:23-0500 Body weight 104.33 kg Osei Helena DO Work Phone: [facility] 10-29-2024 16:23-0500 Diastolic blood pressure 68 mm[Hg] Osei Helena DO Work Phone: [facility] 10-29-2024 16:23-0500 Systolic blood pressure 112 mm[Hg] Osei Helena DO Work Phone: [facility] 10-15-2024 16:11-0500 Body mass index (BMI) [Ratio] 38.94 kg/m2 Osei Helena DO Work Phone: [facility] 10-15-2024 16:11-0500 Body weight 106.14 kg Osei Helena DO Work Phone: [facility] 10-15-2024 16:11-0500 Diastolic blood pressure 64 mm[Hg] Osei Helena DO Work Phone: [facility] 10-15-2024 16:11-0500 Systolic blood pressure 118 mm[Hg] Osei Helena DO Work Phone: [facility] 10-02-2024 11:43-0500 Body mass index (BMI) [Ratio] 38.44 kg/m2 Osei Helena DO Work Phone: [facility] 10-02-2024 11:43-0500 Body weight 104.78 kg Osei Helena DO Work Phone: [facility] 10-02-2024 11:43-0500 Diastolic blood pressure 72 mm[Hg] Osei Helena DO Work Phone: [facility] 10-02-2024 11:43-0500 Systolic blood pressure 118 mm[Hg] Osei Helena DO Work Phone: [facility] 09-18-2024 10:52-0500 Body mass index (BMI) [Ratio] 38.74 kg/m2 Osei Helena DO Work Phone: [facility] 09-18-2024 10:52-0500 Body weight 105.6 kg Osei Helena DO Work Phone: [facility] 09-18-2024 10:52-0500 Diastolic blood pressure 68 mm[Hg] Osei Helena DO Work Phone: [facility] 09-18-2024 10:52-0500 Systolic blood pressure 118 mm[Hg] Osei Helena DO Work Phone: [facility] 09-03-2024 15:21-0500 Body mass index (BMI) [Ratio] 37.44 kg/m2 Osei Helena DO Work Phone: [facility] 09-03-2024 15:21-0500 Body weight 102.06 kg Osei Helena DO Work Phone: [facility] 09-03-2024 15:21-0500 Diastolic blood pressure 68 mm[Hg] Osei Helena DO Work Phone: [facility] 09-03-2024 15:21-0500 Systolic blood pressure 120 mm[Hg] Osei Malik DO Work Phone: [facility] 08-27-2024 13:08-0500 Body height 165.1 cm Camilla Hemmer PA Work Phone: [facility] 08-27-2024 13:08-0500 Body mass index (BMI) [Ratio] 38.11 kg/m2 Camilla Hemmer PA Work Phone: [facility] 08-27-2024 13:08-0500 Body weight 103.87 kg Camilla Hemmer PA Work Phone: [facility] 08-27-2024 13:08-0500 Diastolic blood pressure 72 mm[Hg] Camilla Hemmer PA Work Phone: [facility] 08-27-2024 13:08-0500 Heart rate 92 /min Camilla Hemmer PA Work Phone: [facility] 08-27-2024 13:08-0500 Respiratory rate 16 /min Camilla Hemmer PA Work Phone: [facility] 08-27-2024 13:08-0500 SaO2% (BldA) [Mass fraction] 98 % Camilla Hemmer PA Work Phone: [facility] 08-27-2024 13:08-0500 Systolic blood pressure 118 mm[Hg] Camilla Hemmer PA Work Phone: [facility] 08-13-2024 09:22-0500 Body height 165.1 cm Hammad Hatch MD Work Phone: [facility] 08-13-2024 09:22-0500 Body mass index (BMI) [Ratio] 36.91 kg/m2 Hammad Hatch MD Work Phone: [facility] 08-13-2024 09:22-0500 Body weight 100.61 kg Hammad Hatch MD Work Phone: [facility] 08-05-2024 09:05-0500 Body mass index (BMI) [Ratio] 36.44 kg/m2 Flori Gil PA Work Phone: [facility] 08-05-2024 09:05-0500 Body weight 99.34 kg Flori Louise PA Work Phone: [facility] 08-05-2024 09:05-0500 Diastolic blood pressure 68 mm[Hg] Flori Louise PA Work Phone: [facility] 08-05-2024 09:05-0500 Systolic blood pressure 110 mm[Hg] Flori Louise PA Work Phone: [facility] 07-03-2024 14:41-0400 Body mass index (BMI) [Ratio] 35.65 kg/m2 Flori [place] PA Work Phone: [facility] 07-03-2024 14:41-0400 Body weight 97.18 kg Flori Louise PA Work Phone: [facility] 07-03-2024 14:41-0400 Diastolic blood pressure 64 mm[Hg] Flori [place] PA Work Phone: [facility] 07-03-2024 14:41-0400 Systolic blood pressure 116 mm[Hg] Flori Louise PA Work Phone: [facility] 06-04-2024 15:53-0400 Body mass index (BMI) [Ratio] 35.36 kg/m2 Osei Helena DO Work Phone: [facility] 06-04-2024 15:53-0400 Body weight 96.39 kg Osei Helena DO Work Phone: [facility] 06-04-2024 15:53-0400 Diastolic blood pressure 70 mm[Hg] Osei Helena DO Work Phone: [facility] 06-04-2024 15:53-0400 Systolic blood pressure 126 mm[Hg] Osei Helena DO Work Phone: [facility] 05-23-2024 09:35-0400 Body mass index (BMI) [Ratio] 35.01 kg/m2 [facility] Nurse [facility] 05-23-2024 09:35-0400 Body weight 95.44 kg [facility] Nurse [facility] 05-20-2024 09:37-0400 Body height 165.1 cm Camilla Hemmer PA Work Phone: [facility] 05-20-2024 09:37-0400 Body mass index (BMI) [Ratio] 34.98 kg/m2 Camilla Hemmer PA Work Phone: [facility] 05-20-2024 09:37-0400 Body weight 95.35 kg Camilla Hemmer PA Work Phone: [facility] 05-20-2024 09:37-0400 Diastolic blood pressure 76 mm[Hg] Camilla Hemmer PA Work Phone: [facility] 05-20-2024 09:37-0400 Heart rate 87 /min Camilla Hemmer PA Work Phone: [facility] 05-20-2024 09:37-0400 Respiratory rate 16 /min Camilla Hemmer PA Work Phone: [facility] 05-20-2024 09:37-0400 SaO2% (BldA) [Mass fraction] 98 % Camilla Hemmer PA Work Phone: [facility] 05-20-2024 09:37-0400 Systolic blood pressure 108 mm[Hg] Camilla Hemmer PA Work Phone: [facility] 11-30-2023 09:33-0500 Body height 165.1 cm Jyoti Noble PA-C Work Phone: [facility] 11-30-2023 09:33-0500 Body weight 92.99 kg Jyoti Noble PA-C Work Phone: [facility] 11-30-2023 09:33-0500 Diastolic blood pressure 79 mm[Hg] Jyoti Noble PA-C Work Phone: [facility] 11-30-2023 09:33-0500 Heart rate 84 /min Jyoti Noble PA-C Work Phone: [facility] 11-30-2023 09:33-0500 SaO2% (BldA) [Mass fraction] 96 % Jyoti Noble BARNETT Work Phone: [facility] 11-30-2023 09:33-0500 Systolic blood pressure 118 mm[Hg] Jyoti Noble BARNETT Work Phone: [facility] 06-13-2023 12:36-0400 Body height 165.1 cm Ibis A Myra Work Phone: [facility] [place] [address] DO Work Phone: 06-13-2023 12:36-0400 Body mass index (BMI) [Ratio] 33.28 kg/m2 Ibis A Myra Work Phone: [facility] [place] [address] DO Work Phone: 06-13-2023 12:36-0400 Body surface area Derived from formula 1.98 m2 Ibis A Myra Work Phone: [facility] [place] [address] DO Work Phone: 06-13-2023 12:36-0400 Body weight 90.72 kg Ibis A Myra Work Phone: [facility] [place] [address] DO Work Phone: 06-13-2023 12:36-0400 Diastolic blood pressure 80 mm[Hg] Ibis A Myra Work Phone: [facility] [place] [address] DO Work Phone: 06-13-2023 12:36-0400 Heart rate 76 /min Ibis A Myra Work Phone: [facility] [place] [address] DO Work Phone: 06-13-2023 12:36-0400 Systolic blood pressure 116 mm[Hg] Ibis A Myra Work Phone: [facility] [place] [address] DO Work Phone: 06-08-2023 21:50-0400 Diastolic blood pressure 59 mm[Hg] PORTRAIT STUDIO PHOTOGRAPHER-C Ibis Myra Work Phone: [facility] 06-08-2023 21:50-0400 Heart rate 82 /min [employer]TRAIT STUDIO PHOTOGRAPHER-C Ibis Myra Work Phone: [facility] 06-08-2023 21:50-0400 Respiratory rate 18 /min PORTRAIT STUDIO PHOTOGRAPHER-C Ibis Myra Work Phone: [facility] 06-08-2023 21:50-0400 SaO2% (BldA) [Mass fraction] 99 % PORTRAIT STUDIO PHOTOGRAPHER-C Ibis Myra Work Phone: [facility] 06-08-2023 21:50-0400 Systolic blood pressure 115 mm[Hg] PORTRAIT STUDIO PHOTOGRAPHER-C Ibis Myra Work Phone: [facility] 06-08-2023 16:35-0400 Body height 165.1 cm PORTRAIT STUDIO PHOTOGRAPHER-C Ibis Myra Work Phone: [facility] 06-08-2023 16:35-0400 Body temperature 97.8 [degF] PORTRAIT STUDIO PHOTOGRAPHER-C Ibis Myra Work Phone: [facility] 06-08-2023 16:35-0400 Body weight 91.6 kg PORTRAIT STUDIO PHOTOGRAPHER-C Biis Myra Work Phone: [facility] 12-28-2022 15:00-0400 Body weight 89.36 kg Irvin Hanna MD Work Phone: [facility] 12-28-2022 15:00-0400 Diastolic blood pressure 86 mm[Hg] Irvin Hanna MD Work Phone: [facility] 12-28-2022 15:00-0400 Heart rate 79 /min Irvin Hanna MD Work Phone: [facility] 12-28-2022 15:00-0400 Respiratory rate 16 /min Irvin Hanna MD Work Phone: [facility] 12-28-2022 15:00-0400 Systolic blood pressure 119 mm[Hg] Irvni Hanna MD Work Phone: [facility] 10-13-2022 09:35-0500 Body height 165.1 cm Ibis A Myra Work Phone: [facility] [address] DO Work Phone: 10-13-2022 09:35-0500 Body mass index (BMI) [Ratio] 33.45 kg/m2 Ibis A Myra Work Phone: [facility] [address] DO Work Phone: 10-13-2022 09:35-0500 Body surface area Derived from formula 1.98 m2 Ibis A Myra Work Phone: [facility] [address] DO Work Phone: 10-13-2022 09:35-0500 Body weight 91.17 kg Ibis A Myra Work Phone: [facility] [address] DO Work Phone: 10-13-2022 09:35-0500 Diastolic blood pressure 70 mm[Hg] Ibis A Myra Work Phone: [facility] [address] DO Work Phone: 10-13-2022 09:35-0500 Heart rate 76 /min Ibis A Myra Work Phone: [facility] [address] DO Work Phone: 10-13-2022 09:35-0500 Systolic blood pressure 102 mm[Hg] Ibis A Myra Work Phone: [facility] [address] DO Work Phone: 09-11-2022 09:58-0500 Diastolic blood pressure 82 mm[Hg] Ibis A Myra Work Phone: [facility] [address] DO Work Phone: 09-11-2022 09:58-0500 Diastolic blood pressure 80 mm[Hg] Ibis A Myra Work Phone: [facility] [address] DO Work Phone: 09-11-2022 09:58-0500 Systolic blood pressure 112 mm[Hg] Ibis A Myra Work Phone: [facility] 250 DO Work Phone: 09-11-2022 09:58-0500 Systolic blood pressure 108 mm[Hg] Ibis A Myra Work Phone: [facility] [address] DO Work Phone: 09-11-2022 08:57-0500 Body height 165.1 cm Ibis A Myra Work Phone: [facility] [address] DO Work Phone: 09-11-2022 08:57-0500 Body mass index (BMI) [Ratio] 32.95 kg/m2 Ibis A Myra Work Phone: [facility] [address] DO Work Phone: 09-11-2022 08:57-0500 Body surface area Derived from formula 1.97 m2 Ibis A Myra Work Phone: [facility] 250 DO Work Phone: 09-11-2022 08:57-0500 Body weight 89.81 kg Ibis A Myra Work Phone: [facility] 250 DO Work Phone: 09-11-2022 08:57-0500 Diastolic blood pressure 68 mm[Hg] Ibis A Myra Work Phone: [facility] 250 DO Work Phone: 09-11-2022 08:57-0500 Heart rate 74 /min Ibis A Myra Work Phone: [facility] [address] DO Work Phone: 09-11-2022 08:57-0500 Systolic blood pressure 102 mm[Hg] Ibis A Myra Work Phone: [facility] 250 DO Work Phone: 07-31-2022 10:14-0500 Body weight 89.81 kg Irvin Hanna MD Work Phone: [facility] 07-31-2022 10:14-0500 Diastolic blood pressure 71 mm[Hg] Irvin Hanna MD Work Phone: [facility] 07-31-2022 10:14-0500 Heart rate 92 /min Irvin Hanna MD Work Phone: [facility] 07-31-2022 10:14-0500 Systolic blood pressure 109 mm[Hg] Irvin Hanna MD Work Phone: [facility] 07-21-2022 07:27-0400 Body height 165.1 cm Ibis A Myar Work Phone: [facility] [address] DO Work Phone: 07-21-2022 07:27-0400 Body mass index (BMI) [Ratio] 33.45 kg/m2 Ibis A Myra Work Phone: [facility] [address] DO Work Phone: 07-21-2022 07:27-0400 Body surface area Derived from formula 1.98 m2 Ibis A Myra Work Phone: [facility] [address] DO Work Phone: 07-21-2022 07:27-0400 Body weight 91.17 kg Ibis A Myra Work Phone: [facility] [address] DO Work Phone: 07-21-2022 07:27-0400 Diastolic blood pressure 72 mm[Hg] Ibis A Myra Work Phone: [facility] [address] DO Work Phone: 07-21-2022 07:27-0400 Heart rate 64 /min Ibis A Myra Work Phone: [facility] [address] DO Work Phone: 07-21-2022 07:27-0400 Systolic blood pressure 106 mm[Hg] Ibis A Myra Work Phone: [facility] [address] DO Work Phone: 07-10-2022 10:45-0400 Body height 165.1 cm Ibis A Myra Work Phone: [facility] [address] DO Work Phone: 07-10-2022 10:45-0400 Body mass index (BMI) [Ratio] 32.95 kg/m2 Ibis A Myra Work Phone: [facility] 250 DO Work Phone: 07-10-2022 10:45-0400 Body surface area Derived from formula 1.97 m2 Ibis A Myra Work Phone: [facility] 250 DO Work Phone: 07-10-2022 10:45-0400 Body weight 89.81 kg Ibis A Myra Work Phone: [facility] [address] DO Work Phone: 07-10-2022 10:45-0400 Diastolic blood pressure 70 mm[Hg] Ibis A Myra Work Phone: [facility] [address] DO Work Phone: 07-10-2022 10:45-0400 Heart rate 76 /min Ibis A Myra Work Phone: [facility] 250 DO Work Phone: 07-10-2022 10:45-0400 Systolic blood pressure 104 mm[Hg] Ibis A Myra Work Phone: [facility] 250 DO Work Phone: 06-01-2022 11:36-0400 Body height 165.1 cm PORTRAIT STUDIO PHOTOGRAPHER-C Ibis Myra Work Phone: [facility] 06-01-2022 11:36-0400 Body temperature 100 [degF] PORTRAIT STUDIO PHOTOGRAPHER-C Ibis Myra Work Phone: [facility] 06-01-2022 11:36-0400 Body weight 88.4 kg PORTRAIT STUDIO PHOTOGRAPHER-C Ibis Myra Work Phone: [facility] 06-01-2022 11:36-0400 Diastolic blood pressure 68 mm[Hg] PORTRAIT STUDIO PHOTOGRAPHER-C Ibis Myra Work Phone: [facility] 06-01-2022 11:36-0400 Heart rate 99 /min PORTRAIT STUDIO PHOTOGRAPHER-C Ibis Myra Work Phone: [facility] 06-01-2022 11:36-0400 Respiratory rate 18 /min PORTRAIT STUDIO PHOTOGRAPHER-C Ibis Myra Work Phone: [facility] 06-01-2022 11:36-0400 SaO2% (BldA) [Mass fraction] 97 % PORTRAIT STUDIO PHOTOGRAPHER-C Ibis Myra Work Phone: [facility] 06-01-2022 11:36-0400 Systolic blood pressure 121 mm[Hg] PORTRAIT STUDIO PHOTOGRAPHER-C Ibis Myra Work Phone: [facility] 05-18-2022 09:42-0400 Body height 165.1 cm Ibis A Myra Work Phone: [facility] 250 DO Work Phone: 05-18-2022 09:42-0400 Body mass index (BMI) [Ratio] 31.95 kg/m2 Ibis A Myra Work Phone: [facility] 250 DO Work Phone: 05-18-2022 09:42-0400 Body surface area Derived from formula 1.94 m2 Ibis A Myra Work Phone: [facility] 250 DO Work Phone: 05-18-2022 09:42-0400 Body weight 87.09 kg Ibis A Myra Work Phone: [facility] 250 DO Work Phone: 05-18-2022 09:42-0400 Diastolic blood pressure 74 mm[Hg] Ibis A Myra Work Phone: [facility] 250 DO Work Phone: 05-18-2022 09:42-0400 Heart rate 72 /min Ibis A Myra Work Phone: [facility] 250 DO Work Phone: 05-18-2022 09:42-0400 Systolic blood pressure 102 mm[Hg] Ibis A Myra Work Phone: [facility] 250 DO Work Phone: 03-23-2022 09:11-0400 Diastolic blood pressure 80 mm[Hg] Ibis A Myra Work Phone: [facility] 250 DO Work Phone: 03-23-2022 09:11-0400 Systolic blood pressure 110 mm[Hg] Ibis A Myra Work Phone: [facility] 250 DO Work Phone: 03-23-2022 09:06-0400 Body height 166.37 cm Ibis A Myra Work Phone: [facility] 250 DO Work Phone: 03-23-2022 09:06-0400 Body mass index (BMI) [Ratio] 31.3 kg/m2 Ibis A Myra Work Phone: [facility] 250 DO Work Phone: 03-23-2022 09:06-0400 Body surface area Derived from formula 1.95 m2 Ibis A Myra Work Phone: [facility] 250 DO Work Phone: 03-23-2022 09:06-0400 Body weight 86.64 kg Ibis A Myra Work Phone: [facility] 250 DO Work Phone: 03-23-2022 09:06-0400 Diastolic blood pressure 76 mm[Hg] Ibis A Myra Work Phone: [facility] 250 DO Work Phone: 03-23-2022 09:06-0400 Heart rate 66 /min Ibis A Myra Work Phone: [facility] 250 DO Work Phone: 03-23-2022 09:06-0400 Systolic blood pressure 118 mm[Hg] Ibis A Myra Work Phone: [facility] 250 DO Work Phone: 01-25-2022 08:16-0400 Body height 165.1 cm Irvin Hanna MD Work Phone: [facility] 01-25-2022 08:16-0400 Body weight 86.36 kg Irvin Hanna MD Work Phone: [facility] 01-25-2022 08:16-0400 Diastolic blood pressure 83 mm[Hg] Irvin Hanna MD Work Phone: [facility] 01-25-2022 08:16-0400 Heart rate 71 /min Irvin Hanna MD Work Phone: [facility] 01-25-2022 08:16-0400 Systolic blood pressure 116 mm[Hg] Irvin Hanna MD Work Phone: [facility] 01-10-2022 12:45-0400 Body height 165.1 cm Ok Christyrer Other [employer] Other 01-10-2022 12:45-0400 Body mass index (BMI) [Ratio] 31.61 kg/m2 Ok Hansenehrer Other [employer] Other 01-10-2022 12:45-0400 Body temperature 97.8 [degF] Ok Christyrer Other [employer] Other 01-10-2022 12:45-0400 Body weight 86.18 kg Ok Hansenehrer Other [employer] Other 01-10-2022 12:45-0400 Diastolic blood pressure 80 mm[Hg] Ok Christyrer Other [employer] Other 01-10-2022 12:45-0400 SaO2% (BldA) [Mass fraction] 96 % Ok Christyrer Other [employer] Other 01-10-2022 12:45-0400 Systolic blood pressure 120 mm[Hg] Ok Buehrer Other [employer] Other 10-10-2021 15:50-0500 Body height 165.1 cm Christina Pearce Other [employer] Other 10-10-2021 15:50-0500 Body mass index (BMI) [Ratio] 31.61 kg/m2 Christina Pearce Other [employer] Other 10-10-2021 15:50-0500 Body temperature 97 [degF] Christina Pearce Other [employer] Other 10-10-2021 15:50-0500 Body weight 86.18 kg Christina Pearce Other [employer] Other 10-10-2021 15:50-0500 Diastolic blood pressure 76 mm[Hg] Christina Pearce Other [employer] Other 10-10-2021 15:50-0500 Respiratory rate 18 /min Christina Pearce Other [employer] Other 10-10-2021 15:50-0500 SaO2% (BldA) [Mass fraction] 99 % Christina Pearce Other [employer] Other 10-10-2021 15:50-0500 Systolic blood pressure 123 mm[Hg] Christina Pearce Other [employer] Other Encounters Encounter Date Encounter Type Care Provider Facility Start: 11-18-2024 End: 11-18-2024 Clinisync Result Encounter Osei Helena DO Work Phone: [facility] Unsolicited Start: 11-18-2024 End: 11-18-2024 Clinisync Result Encounter Osei Helena DO Work Phone: [facility] Unsolicited Start: 11-17-2024 End: 11-17-2024 Clinisync Result Encounter Osei Helena DO Work Phone: [facility] External [facility] Unsolicited Start: 11-17-2024 End: 11-17-2024 Clinisync Result Encounter Osei Helena DO Work Phone: [facility] Unsolicited Start: 11-13-2024 End: 11-13-2024 Clinisync Result Encounter Generic External Data Provider [facility] Unsolicited Start: 11-13-2024 End: 11-13-2024 Clinisync Result Encounter Generic External Data Provider [facility] Unsolicited Start: 11-12-2024 End: 11-12-2024 ambulatory OSEI R HELENA [facility] Start: 11-10-2024 End: 11-10-2024 Bamboo flowsheet [...] Only Roshni Jo RN [facility] Comment on above: Dichorionic diamniot ic twin in third trimester (Primary Dx) Start: 10-16-2024 End: 10-16-2024 ambulatory OSEI R HELENA [facility] Start: 10-15-2024 End: 10-15-2024 flow sheet [...] Start: 10-02-2024 End: 10-02-2024 Bamboo flowsheet Osei Helnea DO Work Phone: [facility] Start: [...] Start: 09-25-2024 End: 09-25-2024 ambulatory Osei Helena [facility] Work Phone: Start: 09-25-2024 End: 09-25-2024 Departed Referred Osei Helena DO Work Phone: [facility] Start: 09-25-2024 End: 09-25-2024 Clinisync Result Encounter Osei Helena DO Work Phone: [facility] External [facility] Unsolicited Start: 09-25-2024 End: 09-25-2024 Clinisync Result Encounter Osei Helena DO Work Phone: [facility] Unsolicited Start: 09-25-2024 End: 09-26-2024 Telephone encounter Osei Helena DO Work Phone: [facility] Start: 09-19-2024 End: 09-26-2024 Orders Only Chrissie Willis [facility] Comment on above: Dichorionic diamniot ic [...] Start: 09-02-2024 End: 09-02-2024 ambulatory JYOTI DICKEY Facility:[facility] Comment on above: POTS (postural ortho [...] encounter Marycarmen Kennedy RN [facility] Start: 08-27-2024 End: 08-27-2024 Bamboo flowsheet [...] Only Sammi Green RN [facility] Comment on above: Dichorionic diamniot ic twin in second trimester (Primary Dx); POTS (postural orthostatic tachycardia syndrome); Asthma during ; 20 weeks gestation of Start: 08-13-2024 End: 08-13-2024 Office outpatient new 45 minutes Muna Lenz MD Work Phone: [facility] Comment on above: Dichorionic diamniot ic twin in second trimester (Primary Dx); POTS (postural orthostatic tachycardia syndrome); Asthma during ; 20 weeks gestation of Start: 08-13-2024 End: 08-13-2024 ambulatory OSEI Yung [facility] Start: 08-11-2024 End: 08-13-2024 Clinisync Result Encounter [...] Start: 07-24-2024 End: 07-24-2024 ambulatory Celeste Watson Facility:[facility] Start: 07-07-2024 End: 07-07-2024 Chart abstracting Hammad Hatch MD Work Phone: [facility] Start: 07-03-2024 End: 07-03-2024 flow sheet Flori TOLBERT Work Phone: [facility] Comment on above: Second trimester pre gnancy; 14 weeks gestation of Start: 07-03-2024 End: 07-03-2024 ambulatory FLORI GIL Not Available Start: 07-03-2024 End: 07-03-2024 Bamboo flowsheet Flori OTLBERT Work Phone: [facility] Start: 07-03-2024 End: 07-03-2024 Bamboo flowsheet Flori TOLBERT Work Phone: [facility] Start: 07-02-2024 End: 07-02-2024 ambulatory Joie Seaman APRN.WHITESMITH Work Phone: Neurology Comment on above: POTS (postural ortho static tachycardia syndrome) (Primary Dx); Near syncope Start: 07-02-2024 End: 07-02-2024 Telemedicine consultation with patient Joie Seaman APRN.WHITESMITH Work Phone: Neurology Start: 06-10-2024 End: 06-11-2024 ambulatory Jyoti Dickey PA-C Work Phone: Neurology Comment on above: Start: 06-10-2024 End: 06-23-2024 Telephone encounter Jb Mandujano MD Work Phone: [facility] Start: 06-04-2024 End: 06-04-2024 flow sheet Osei Sidhuo DO Work Phone: [facility] Comment [...] Start: 04-12-2024 End: 04-12-2024 ambulatory Celeste Watson [facility] Start: 04-12-2024 End: 04-12-2024 Patient encounter procedure Celeste Watson [facility] Start: 03-25-2024 Patient encounter status Camilla TOLBERT Work Phone: [facility] Start: 03-25-2024 End: 03-25-2024 ambulatory JB MANDUJANO Not Available Start: 03-20-2024 End: 03-20-2024 ambulatory Jyoti Dickey PA-C Work Phone: Neurology Comment on above: POTS (postural ortho static tachycardia syndrome) (Primary Dx) Start: 03-20-2024 End: 03-20-2024 Telemedicine consultation with patient yJoti Dickey PA-C Work Phone: Neurology Start: 03-14-2024 End: 03-14-2024 ambulatory Celeste Watson [facility] Start: 03-14-2024 End: 03-14-2024 Patient encounter procedure Celeste Watson [facility] Start: 02-26-2024 End: 02-26-2024 ambulatory JB Jessica NAZIA Not Available Start: 01-22-2024 ambulatory MAINTENANCE MECHANIC 2ND SHIFT Krista L Mae Facil ity: [facility] Start: 01-01-2024 End: 01-01-2024 ambulatory CELESTE E RINKES Not Available Start: 12-21-2023 End: 12-21-2023 ambulatory OSEI SIDHUO Not Available Start: 12-11-2023 End: 12-11-2023 ambulatory MAINTENANCE MECHANIC 2ND SHIFT Krista L Mae Facility: [facility] Start: 12-11-2023 End: 12-11-2023 ambulatory CELESTE E RINKES Not Available Start: 11-30-2023 End: 11-30-2023 ambulatory AURORA JO Facility:[facility] Start: 11-30-2023 End: 11-30-2023 Patient encounter procedure Jyoti Dickey PA-C Work Phone: Neurology Comment on above: POTS (postural ortho static tachycardia syndrome) (Primary Dx) Start: 11-12-2023 End: 11-12-2023 Patient encounter procedure Autonomic 2 Neur Main [facility] Start: 11-12-2023 End: 11-12-2023 ambulatory AURORAENRIKE SANTIAGO Neurology Comment on above: Procedure Start: 10-10-2023 End: 10-10-2023 ambulatory AURORA SANTIAGO Facility:[facility] Start: 07-24-2023 End: 07-24-2023 ambulatory Jocelin FELIX [facility] Start: 07-20-2023 Telephone encounter Arin Tinajero RN [facility] [place] Comment on above: Referral Follow-up Start: 07-10-2023 End: 07-10-2023 ambulatory JSOE ARMANDO GREY Facility:[facility] Start: 07-10-2023 End: 07-10-2023 Office outpatient new 30 minutes Jose Armando Grey DO Work Phone: [facility] Comment on above: Chronic pain of righ t knee (Primary Dx); Tendinopathy of gluteal region Start: 07-06-2023 Orders Only Jose Armando Grey DO Work Phone: Orthopaedics Comment on above: Right knee pain, uns pecified chronicity (Primary Dx) Start: 07-05-2023 End: 07-05-2023 ambulatory PORTRAIT STUDIO PHOTOGRAPHER-C Ibis Limer Work Phone: [facility] Work Phone: Start: 07-05-2023 End: 07-05-2023 Patient encounter procedure PORTRAIT STUDIO PHOTOGRAPHER-C Ibis Limer Work Phone: [facility]-Flu Vaccine Start: 06-13-2023 Office outpatient vi sit 15 minutes Ibis Limer Work Phone: -[facility] 600 DO Work Phone: Start: 06-13-2023 ambulatory Tabatha Cota Facility:[id number] Start: 06-08-2023 End: 06-08-2023 Emergency department patient visit PORTRAIT STUDIO PHOTOGRAPHER-C Ibis Limer Work Phone: [facility]-Emergency Room Work Phone: Start: 04-25-2023 End: 04-25-2023 ambulatory PORTRAIT STUDIO PHOTOGRAPHER-C Ibis Arenasncer Work Phone: [facility] Work Phone: Start: 04-25-2023 End: 04-25-2023 Departed Referred PORTRAIT STUDIO PHOTOGRAPHER-C Ibis Limer Work Phone: [facility] [place] 250 Work Phone: Start: 03-14-2023 ambulatory CHAN MUÑIZ Fa cility:[facility] Start: 01-18-2023 End: 01-18-2023 ambulatory PORTRAIT STUDIO PHOTOGRAPHER-C Ibis Renteria Work Phone: [facility] Work Phone: Start: 01-18-2023 End: 01-18-2023 Departed Referred PORTRAIT STUDIO PHOTOGRAPHER-C Ibis Limer Work Phone: [facility] [place] 250 Work Phone: Start: 12-28-2022 End: 12-28-2022 Patient encounter procedure Irvin Hanna MD Work Phone: Rheumatology Comment on above: Pain and swelling of knee, right (Primary Dx); Joint stiffness Start: 10-31-2022 Chart Update Ibis Ely cer Work Phone: [facility] 250 DO Work Phone: Start: 10-16-[address] Melodie Alfonso ty: Start: 10-13-2022 Current tobacco non- user cad cap copd pv dm Ibis Ellis Myra Work Phone: [facility] 320 DO Work Phone: Start: 10-13-[address] Annalee Maza F acility: Start: 09-11-2022 Office outpatient vi sit 15 minutes Ibis Limer Work Phone: [facility] 250 DO Work Phone: Start: 09-11-2022 Patient encounter procedure Ibis Renteria Work Phone: [facility] 250 DO Work Phone: Start: 09-11-[address] Melodie Alfonso ty: Start: 09-07-2022 Telephone encounter Ibis Renteria Work Phone: [facility] 320 DO Work Phone: Start: 08-27-[address] Annalee Pierre acility: Start: 08-01-2022 AUDIT Ibis Arenasn cer Work Phone: [facility] 320 DO Work Phone: Start: 07-31-2022 EVENT EZEKIEL, Provider : HERIBERTO SERRANO E COMMERCE DIRECTOR 1,[id number], Status: Pen, Time: 11:00 AM Ibis Renteria Work Phone: [facility] 250 DO Work Phone: Start: 07-31-[address] Annalee Pierre acility: Start: 07-31-2022 End: 07-31-2022 Patient encounter procedure Irvin Hanna MD Work Phone: Rheumatology Comment on above: Pain and swelling of knee, right (Primary Dx); Joint stiffness; Inflammatory arthritis Start: 07-26-2022 ambulatory IBIS RENTERIA Facilit y:[facility] Start: 07-21-2022 Current tobacco non- user cad cap copd pv dm Ibis Arenasncer Work Phone: [facility] Work Phone: Start: 07-21-[address] Annalee Pierre acility: Start: 07-10-2022 Office outpatient vi sit 25 minutes Ibis Ellis Myra Work Phone: [facility] 250 DO Work Phone: Start: 07-10-2022 Patient encounter procedure Ibis Renteria Work Phone: [facility] 250 DO Work Phone: Start: 07-10-[address] Melodie Alfonso ty: Start: 06-15-2022 Telephone encounter Ibis Rhonda Myra Work Phone: [facility] 250 DO Work Phone: Start: 06-12-2022 End: 06-12-[address] Annalee Maza Facility:[id number] Start: 06-05-2022 Patient encounter procedure Ibis A Myra Work Phone: [id number] [place] 5 Work Phone: Start: 06-01-2022 End: 06-01-2022 Emergency department patient visit PORTRAIT STUDIO PHOTOGRAPHER-C Ibis Myra Work Phone: [facility]-Emergency Room Start: 05-18-2022 Office outpatient vi sit 25 minutes Ibis A Myra Work Phone: [facility] 250 DO Work Phone: Start: 05-18-2022 Patient encounter procedure Ibis A Myra Work Phone: [facility] 250 DO Work Phone: Start: 05-08-2022 End: 05-08-2022 Patient encounter procedure PORTRAIT STUDIO PHOTOGRAPHER-C Ibis Myra Work Phone: [facility]-Respiratory Therapy Start: 05-03-2022 Result Review Ibis Rhonda Spen cer Work Phone: [facility] 250 DO Work Phone: Start: 05-03-2022 SURGNONUH, Provider: María Elena Freire, Status: Pen, Time: 10:00 AM Ibis A Myra Work Phone: [facility] 250 DO Work Phone: Start: 05-03-2022 End: 05-03-2022 Patient encounter procedure PORTRAIT STUDIO PHOTOGRAPHER-C Ibis Myra Work Phone: [facility] Start: 03-28-2022 EVENT EZEKIEL, Provider : HERIBERTO SINGH E COMMERCE DIRECTOR 1,[id number], Status: Pen, Time: 8:00 AM Ibis A Myra Work Phone: -[facility] 250 DO Work Phone: Start: 03-28-2022 Patient encounter procedure Ibis A Myra Work Phone: [facility] 250 DO Work Phone: Start: 03-26-2022 Chart Update Ibis A Spen cer Work Phone: [facility] 250 DO Work Phone: Start: 03-24-2022 End: 03-24-2022 Patient encounter procedure PORTRAIT STUDIO PHOTOGRAPHER-C Ibis Myra Work Phone: [facility]-Lab [facility] Start: 03-23-2022 Office consultation new/estab patient 60 min Ibis A Myra Work Phone: [facility] 250 DO Work Phone: Start: 03-23-2022 Office outpatient ne w 45 minutes Ibis A Myra Work Phone: [facility] Work Phone: Start: 02-02-2022 Telephone encounter Irvin shannon MD Work Phone: Rheumatology Comment on above: Orders Start: 01-25-2022 End: 01-25-2022 Patient encounter procedure Irvin Hanna MD Work Phone: Rheumatology Comment on above: Pain and swelling of knee, right (Primary Dx); Joint stiffness Start: 01-10-2022 End: 01-10-2022 ambulatory Ok Mckeon Other [employer] Other Start: 01-10-2022 Office outpatient ne w 45 minutes Ok Mckeon [facility] Vascular Surgery Start: 10-10-2021 End: 10-10-2021 ambulatory Christina Pearce Other [facility] [employer] Other Start: 10-10-2021 Office outpatient vi sit 15 minutes Christina Pearce [facility] Urgent [facility] [place] Procedures Date Procedure Procedure Detail Performing Clinician Start: 11-18-2024 OB BPP W NON-STRESS Osei Helena DO Work Phone: Start: 11-17-2024 US OB PLACENTA Osei Fa zio DO Work Phone: Start: 11-13-2024 OB BPP W NON-STRESS Generic External Data Provider Start: 11-10-2024 Urnls dip stick/tabl et rgnt non-auto w/o micrscp Osei Helena DO Work Phone: Start: 11-07-2024 ALL CBC WITH AUTO DIFF Generic External Data Provider Start: 11-06-2024 OB BPP W NON-STRESS Generic External Data Provider Start: 10-30-2024 OB BPP W NON-STRESS Generic External Data Provider Start: 10-29-2024 Urnls dip stick/tabl et rgnt non-auto w/o micrscp Osei Helena DO Work Phone: Start: 10-27-2024 ECG 12-LEAD Osei Fazi o DO Work Phone: Start: 10-27-2024 Ct angiography chest w/contrast/noncontrast Osei Helena DO Work Phone: Start: 10-27-2024 [facility] UA (CLEAN/CATCH) CALCINE FURNACE TENDER/MICRO IF IND. Osei Helena DO Work Phone: Start: 10-23-2024 OB BPP W NON-STRESS Generic External Data Provider Start: 10-15-2024 Urnls dip stick/tabl et rgnt non-auto w/o micrscp Osei Helena DO Work Phone: Start: 10-02-2024 Urnls dip stick/tabl et rgnt non-auto w/o micrscp Osei Helena DO Work Phone: Start: 09-25-2024 [facility] UA (CLEAN/CATCH) CALCINE FURNACE TENDER/MICRO IF IND. Osei Helena DO Work Phone: [...] dip stick/tablet rgnt non-auto w/o micrscp Osei Malik DO Work Phone: Start: 07-10-2023 [facility] Pr ovider Historical Start: 06-08-2023 Plain chest X-ray PORTRAIT STUDIO PHOTOGRAPHER-C Ibis Renteria Work Phone: Start: 01-18-2023 Plain chest X-ray PORTRAIT STUDIO PHOTOGRAPHER-C Ibis Limer Work Phone: Start: 05-03-2022 Plain chest X-ray PORTRAIT STUDIO PHOTOGRAPHER-C Ibis Renteria Work Phone: Start: 08-05-2021 Arthroscopy of knee Lorna Watson Arthroscopy of knee Ibis Limer Work Phone: Cryotherapy of warts Lornachula Martinezradha Extraction of wisdom tooth Ibis Ellis Myra Work Phone: SARS-CoV-2, Influenz a & RSV (PCR) PORTRAIT STUDIO PHOTOGRAPHER-C Ibis Renteria Work Phone: Tonsillectomy and adenoidectomy Ibis Limer Work Phone: Tonsillectomy and adenoidectomy Celeste Watson NEGATED: Highlighted row has not occurred! Total colonoscopy Ibis Renteria Work Phone: Plan of Treatment Date Care Activity Detail Author Start: 03-25-2034 DTaP,Tdap and Td Vac cines (8 - Td or Tdap) DTaP,Tdap and Td Vaccines (8 - Td or Tdap) [facility] Start: 03-25-2034 Urine microalbumin profile DTaP,Tdap,Td Vaccine (8 - Td or Tdap) [facility] Start: 08-05-2027 Screening for malign ant neoplasm of cervix [facility] Start: 10-17-2025 End: 10-17-2025 US MFM with or without consult US MFM with or without consult Imaging Routine Dichorionic diamniotic twin in third trimester Expected: 10/17/2025 (Approximate), Expires: 10/17/2025 [employer] Work Phone: Comment on above: Expected: 10/17/2025 (Approximate), Expires: 10/17/2025 Start: 09-19-2025 End: 09-19-2025 US MFM with or without consult US MFM with or without consult Imaging Routine Dichorionic diamniotic twin in second trimester Expected: 09/19/2025 (Approximate), Expires: 09/19/2025 [employer] Work Phone: Comment on above: Expected: 09/19/2025 (Approximate), Expires: 09/19/2025 Start: 08-15-2025 End: 08-15-2025 US MFM with or without consult US MFM with or without consult Imaging Routine Dichorionic diamniotic twin in second trimester POTS (postural orthostatic tachycardia syndrome) Asthma during 20 weeks gestation of Expected: 08/15/2025 (Approximate), Expires: 08/15/2025 [employer] Work Phone: Comment on above: Expected: 08/15/2025 (Approximate), Expires: 08/15/2025 Start: 08-13-2025 Adult BMI Screening Adult BMI Screen ing [facility] Start: 08-13-2025 Tobacco Screening Tobacco Screening [facility] Start: 11-26-2024 End: 11-26-2024 Patient encounter procedure 11/26/2024 2:10 PM EST Routine [facility] [address] [facility] [facility] [phone] Osei Malik DO [address] [place] [address] [facility] Start: 11-12-2024 End: 11-12-2024 Patient encounter procedure 11/12/2024 9:30 AM EST Appointment [facility] - MFM US Imaging [address] [place] [address] [facility] US Imaging Start: 11-10-2024 End: 11-10-2024 Patient encounter procedure 11/10/2024 9:00 AM EST Routine [facility] [address] [place] [phone] Osei Malik, DO [address] [place] [address] [facility] Start: 10-29-2024 End: 10-29-2024 Patient encounter procedure [facility] Comment on above: Arrived Start: 10-16-2024 End: 10-16-2024 Patient encounter procedure 10/16/2024 1:00 PM EST Appointment [facility] US Imaging [address] [place] [phone] [facility] Imaging Start: 10-15-2024 End: 10-15-2024 [...] Routine [facility] [address] [place] [phone] Osei Malik, DO [address] [place] [address] [facility] Start: 01-02-2025 Urine culture [facility] Start: 09-25-2024 Bacteria identified in Urine by Culture Urine Culture [facility] Start: 09-23-2024 End: 09-23-2024 Patient encounter procedure 09/23/2024 1:00 PM EST Appointment [facility] - Ultrasound [address] [place] [address] [facility] - Ultrasound Start: 09-19-2024 End: 09-19-2024 Patient encounter procedure 09/19/2024 9:30 AM EST Appointment [facility] US Imaging [address] [place] [phone] [facility] US Imaging Start: 09-18-2024 End: 09-18-2024 Patient encounter procedure [facility] Comment on above: Arrived Start: 09-03-2024 End: 09-03-2024 Patient encounter procedure [facility] Comment on above: Arrived Start: 09-02-2024 End: 09-02-2024 ambulatory 09/02/2024 12:15 PM EST [facility] [facility] [address] [place] [address] Jyoti Dickey PA-C [address] [place] [address] F/u Neurology Comment on above: F/u Start: 09-02-2024 End: 09-02-2024 ambulatory 09/02/2024 10:45 AM EST [facility] [address] [place] [address] Jyoti Dickey PA-C [address] [place] [address] F/u Neurology Comment on above: F/u Start: 08-27-2024 End: 08-27-2024 Patient encounter procedure 08/27/2024 1:00 PM EST Office Visit [facility] [address] [facility] [address] [place] [id number] Camilla Garcia PA [address] [email or web address] [address] [place] [address] Arrived [facility] Comment on above: Arrived Start: 08-13-2024 End: 08-13-2024 Patient encounter procedure [facility] Start: 08-05-2024 End: 02-02-2025 Alpha fetoprotein, maternal Alpha fetoprotein, maternal Lab Routine Second trimester Expected: 08/05/2024 (Approximate), Expires: 02/02/2025 [facility] Comment on above: Expected: 08/05/2024 (Approximate), Expires: 02/02/2025 Start: 08-05-2024 End: 08-05-2024 Patient encounter procedure 08/05/2024 8:50 AM EST Routine [facility] [address] [address] [id number] Osei Malik, [address] [facility] [address] [place], [place] [id number] [facility] Start: 07-03-2024 End: 07-03-2024 Patient encounter procedure [facility] Comment on above: Arrived Start: 06-04-2024 End: 06-04-2024 Patient encounter procedure [facility] Comment on above: Arrived Start: 05-25-2024 Covid-19 Vaccine ( season) Covid-19 Vaccine ( season) [facility] Start: 05-25-2024 Covid-19 Vaccine ( season) Covid-19 Vaccine ( season) [facility] Start: 05-25-2024 Influenza vaccination [facility] Start: 05-23-2024 End: 05-23-2025 ABO/Rh ABO/Rh [...] Initial [facility] [address] [place] [address] [facility] Start: 05-23-2024 End: 05-23-2024 Professional / ancillary services management 05/23/2024 8:30 AM EDT Ancillary Procedure [facility] [address] [place] [address] [facility] Start: 05-20-2024 End: 05-20-2024 Patient encounter procedure 05/20/2024 9:30 AM EDT Office Visit [facility] [address] [facility] [address] [place] [id number] Camilla Garcia PA [address] [facility] [[email or web address] [address] [place] [address] Arrived [facility] Comment on above: Arrived Start: 04-20-2024 Urine microalbumin profile DTaP,Tdap,Td Vaccine (7 - Td or Tdap) [facility] Start: 09-24-2023 Depression Assessment Depression Ass essment [facility] Start: 05-25-2023 Covid-19 Vaccine () Covid-19 Vaccine () [facility] Start: 05-25-2023 Influenza vaccination [facility] Start: 04-25-2023 [facility] Start: 04-06-2023 FUV, Provider: Annalee Maza, Status: Pen, Time: 2:40 PM FUV, Provider: Annalee Maza, Status: Pen, Time: 2:40 PM -[facility] [address] DO Work Phone: Start: 2022 PAP TESTING PAP TESTING [facility] Start: 2022 Screening for malign ant neoplasm of cervix [facility] Start: 10-13-2022 FUV, Provider: Annalee Maza, Status: Pen, Time: 9:20 AM FUV, Provider: Annalee Maza, Status: Pen, Time: 9:20 AM -[facility] DO Work Phone: Start: 09-24-2022 DEPRESSION ASSESSMENT DEPRESSION ASS ESSMENT [facility] Start: 09-11-2022 FUV, Provider: Melodie Alcaraz, Status: Pen, Time: 9:30 AM FUV, Provider: Melodie Alcaraz, Status: Pen, Time: 9:30 AM [facility] 250 DO Work Phone: Start: 09-11-2022 EVENT EZEKIEL, Provider : HERIBERTO SINGH E COMMERCE DIRECTOR 1,[id number], Status: Pen, Time: 8:30 AM EVENT EZEKIEL, Provider: HERIBERTO SINGH E COMMERCE DIRECTOR 1,[id number], Status: Pen, Time: 8:30 AM [facility] [address] DO Work Phone: Start: 08-14-2022 EVENT EZEKIEL, Provider : HERIBERTO LEMON E COMMERCE DIRECTOR 1,[id number], Status: Pen, Time: 10:00 AM EVENT EZEKIEL, Provider: HERIBERTO LEMON E COMMERCE DIRECTOR 1,[id number], Status: Pen, Time: 10:00 AM [facility] 250 DO Work Phone: Start: 07-21-2022 NPVRFRL, Provider: Annalee Maza, Status: Pen, Time: 7:20 AM NPVRFRL, Provider: Annalee Maza, Status: Pen, Time: 7:20 AM [facility] 250 DO Work Phone: Start: 07-10-2022 FUV, Provider: Melodie Alcaraz, Status: Pen, Time: 10:45 AM FUV, Provider: Melodie Alcaraz, Status: Pen, Time: 10:45 AM -[facility] 250 DO Work Phone: Start: 06-05-2022 [facility], Provider: Annalee Maza, Status: Pen, Time: 10:00 AM [facility], Provider: Annalee Maza, Status: Pen, Time: 10:00 AM [facility] 250 DO Work Phone: Start: 05-25-2022 Influenza vaccination [facility] Start: 05-18-2022 FUV, Provider: Melodie Alcaraz, Status: Pen, Time: 9:15 AM FUV, Provider: Melodie Alcaraz, Status: Pen, Time: 9:15 AM [facility] 250 DO Work Phone: Start: 05-08-2022 End: 05-08-2022 Patient encounter procedure [facility] Start: 05-03-2022 SURGNONUH, Provider: María Elena Freire, Status: Pen, Time: 10:00 AM SURGNON[facility], Provider: María Elena Freire, Status: Pen, Time: 10:00 AM -[facility] [address] DO Work Phone: Start: 03-28-2022 EVENT EZEKIEL, Provider : HERIBERTO SINGH E COMMERCE DIRECTOR 1,[id number], Status: Pen, Time: 8:00 AM EVENT EZEKIEL, Provider: HERIBERTO SINGH E COMMERCE DIRECTOR 1,[id number], Status: Pen, Time: 8:00 AM [facility] 250 DO Work Phone: Start: 01-25-2022 End: 03-27-2022 Chronic hepatitis differentiation between hepatitis B and C virus panel - Serum or Plasma [facility] Work Phone: Comment on above: Expected: 01/25/2022 , Expires: 03/27/2022 Start: 01-25-2022 End: 03-27-2022 Complement C1 esterase inhibitor [Mass/volume] in Serum or Plasma [facility] Work Phone: Comment on above: Expected: 01/25/2022 , Expires: 03/27/2022 Start: 01-25-2022 End: 03-27-2022 Complement C2 [Mass/volume] in Serum or Plasma [facility] Work Phone: Comment on above: Expected: 01/25/2022 , Expires: 03/27/2022 Start: 09-24-2021 DEPRESSION ASSESSMENT DEPRESSION ASS ESSMENT [facility] Start: 06-16-2021 COVID-19 VACCINE (3 - Booster for Pfizer series) COVID-19 VACCINE (3 - Booster for Pfizer series) [facility] Start: 03-11-2021 COVID-19 VACCINE (3 - Booster for Pfizer series) COVID-19 VACCINE (3 - Booster for Pfizer series) [facility] Start: 02-11-2021 COVID-19 VACCINE (3 - Pfizer risk series) COVID-19 VACCINE (3 - Pfizer risk series) [facility] Start: 2020 SHINGRIX VACCINE (1 of 2) VANG GRIX VACCINE (1 of 2) [facility] Start: 2020 Urine microalbumin profile [facility] Start: 12-03-2019 Adult BMI Follow Up Plan Adult BMI Follow Up Plan [facility] Start: 12-03-2019 Adult BMI Screening Adult BMI Screen ing [facility] Start: 12-03-2019 Anxiety Screening Anxiety Screening [facility] Start: 12-03-2019 CHLAMYDIA SCREENING (18-24) CHLAMYDIA SCREENING (18-24) [facility] Start: 12-03-2019 Depression Screening Depression Scre ening [facility] Start: 12-03-2019 GC (GONORRHEA) SCREE NINI (18-24) GC (GONORRHEA) SCREENING (18-24) [facility] Start: 12-03-2019 HEPATITIS C SCREENING HEPATITIS C SC REENING [facility] Start: 12-03-2019 HIV SCREENING HIV SCREENING [facility] Start: 12-03-2019 HIV screening HIV Screening [facility] Start: 12-03-2019 Screening for Chlamy taylor trachomatis Chlamydia Screening (18-24) [facility] Start: 2017 Meningococcal B Vacc ine: Consider Based On Risk (1 of 2 - Patient Seeks Protection) Meningococcal B Vaccine: Consider Based On Risk (1 of 2 - Patient Seeks Protection) [facility] Start: 12-03-2015 PEDS TO ADULT TRANSI TION ANNUAL ASSESSMENT PEDS TO ADULT TRANSITION ANNUAL ASSESSMENT [facility] Start: 2013 Adult depression screening assessment DEPRESSION SCREENING [facility] Start: 2013 PEDS TO ADULT TRANSI TION INITIAL DISCUSSION PEDS TO ADULT TRANSITION INITIAL DISCUSSION [facility] Start: 2013 Tobacco Screening Tobacco Screening [facility] Start: 2012 HPV VACCINE (1 - 2-d ose series) HPV VACCINE (1 - 2-dose series) [facility] Start: 12-03-2011 MENINGOCOCCAL B: 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 based on risk (1 of 2 - Risk Bexsero 2-dose series) MENINGOCOCCAL B: Consider based on risk (1 of 2 - Risk Bexsero 2-dose series) [facility] Start: 2010 HPV Vaccine (1 - 2-d ose series) HPV Vaccine (1 - 2-dose series) [facility] Start: 2010 HPV VACCINES (1 - 2- dose series) HPV VACCINES (1 - 2-dose series) [facility] Start: 2008 DTaP/Tdap/Td VACCINE S (1 - Tdap) DTaP/Tdap/Td VACCINES (1 - Tdap) [facility] Start: 12-03-2007 PNEUMOCOCCAL (1 - PCV) PNEUMOCOCCAL (1 - PCV) [facility] Start: 2002 MMR VACCINES (1 of 1 - Standard series) MMR VACCINES (1 of 1 - Standard series) [facility] Start: 2002 VARICELLA VACCINES ( 1 of 2 - 2-dose childhood series) VARICELLA VACCINES (1 of 2 - 2-dose childhood series) [facility] Start: 06-04-2002 COVID-19 Vaccine (#1) COVID-19 Vacci ne (#1) [facility] Start: 2001 HEPATITIS B (1 of 3 - 3-dose series) HEPATITIS B (1 of 3 - 3-dose series) [facility] Start: 2001 Hepatitis B Vaccine (1 of 3 - 3-dose series) Hepatitis B Vaccine (1 of 3 - 3-dose series) [facility] Start: 2001 HEPATITIS B VACCINES (1 of 3 - 3-dose series) HEPATITIS B VACCINES (1 of 3 - 3-dose series) [facility] Start: 2001 Screening for Chlamy taylor trachomatis Chlamydia Screening [facility] Bacteria identified in Urine by Culture Urine culture Microbiology Routine Missed menses Ordered: 05/23/2024 [facility] Comment on above: Ordered: 05/23/2024 CBC W Auto Different ial panel - Blood CBC and differential Lab Routine Missed menses Ordered: 05/23/2024 [facility] Comment on above: Ordered: 05/23/2024 CHLAMYDIA TRACHOMATI S (GENITO/STI) CHLAMYDIA TRACHOMATIS (GENITO/STI) Lab Routine STD exposure Ordered: 08/05/2024 [facility] Comment on above: Ordered: 08/05/2024 Cytology Cervical or vaginal smear or scraping study Pap Smear Pathology and Cytology Routine Well woman exam with routine gynecological exam Ordered: 08/05/2024 [facility] Comment on above: Ordered: 08/05/2024 Hemoglobin A1c/Hemoglobin.total in Blood Hemoglobin A1c Lab Routine Missed menses Ordered: 05/23/2024 [facility] Comment on above: Ordered: 05/23/2024 Hepatitis B virus ramirez rface Ag [Presence] in Serum or Plasma by Immunoassay Hepatitis B surface antigen Lab Routine Missed menses Ordered: 05/23/2024 [facility] Comment on above: Ordered: 05/23/2024 Hepatitis C virus Ab [Presence] in Serum or Plasma by Immunoassay Hepatitis C antibody Lab Routine Missed menses Ordered: 05/23/2024 [facility] Comment on above: Ordered: 05/23/2024 HIV-1/HIV-2 antigen/antibody combination immunoassay HIV-1 and HIV-2 antibodies Lab Routine Missed menses Ordered: 05/23/2024 [facility] Comment on above: Ordered: 05/23/2024 Neisseria gonorrhoea e DNA [Presence] in Unspecified specimen by PERFECTO with probe detection Neisseria gonorrhea DNA probe, direct Lab Routine STD exposure Ordered: 08/05/2024 [facility] Comment on above: Ordered: 08/05/2024 Patient Education [facility] Work Phone: Patient referral [facility] Work Phone: Reagin Ab [Presence] in Serum by RPR RPR Lab Routine Missed menses Ordered: 05/23/2024 [facility] Comment on above: Ordered: 05/23/2024 Rubella antibody, IgG Rubella an tibody, IgG Lab Routine Missed menses Ordered: 05/23/2024 [facility] Comment on above: Ordered: 05/23/2024 SURESWAB(R) ADVANCED VAGINITIS PLUS, TMA SURESWAB(R) ADVANCED VAGINITIS PLUS, TMA Pathology and Cytology Routine Vaginal discharge Ordered: 08/05/2024 [facility] Work Phone: Comment on above: Ordered: 08/05/2024 End: 08-04-2024 XR KNEE GENERAL 4V AP BOTH/PA BOTH/LAT/MERC RIGHT XR KNEE GENERAL 4V AP BOTH/PA BOTH/LAT/MERC RIGHT Radiology Routine Right knee pain, unspecified chronicity 1 Occurrences starting 07/06/2023 until 08/04/2024 [facility] Work Phone: Comment on above: 1 Occurrences starti ng 07/06/2023 until 08/04/2024 [facility] Immunizations Immunization Date Immunization Notes Care Provider Fa [facility] 07-24-2024 influenza, seasonal, injectable, preservative free Camilla TOLBERT Work Phone: [facility] [employer] Work Phone: 03-25-2024 tetanus toxoid, redu richar diphtheria toxoid, and acellular pertussis vaccine, adsorbed Camilla TOLBERT Work Phone: [facility] 07-05-2023 influenza virus vaccine, unspecified formulation Celeste Watson [facility] 07-05-2023 influenza, injectabl e, quadrivalent, preservative free Camilla TOLBERT Work Phone: [facility] 01-14-2021 Pfizer-BioNTech COVID-19 Vacc 30 MCG/0.3ML Intramuscular Suspension Ibis Rhonda Myra Work Phone: [facility] Comment on above: Result Comment: 2023: TPVAL 12-24-2020 Pfizer-BioNTech COVID-19 Vacc 30 MCG/0.3ML Intramuscular Suspension Ibis Rhonda Limer Work Phone: [facility] Comment on above: Result Comment: 2023: TPVAL 12-11-2017 meningococcal polysaccharide (groups A, C, Y and W-135) diphtheria toxoid conjugate vaccine (MCV4P) Christina Portia Other [facility] [employer] Other 12-11-2017 meningococcal ACWY vaccine, unspecified formulation Celeste Watson [facility] 11-06-2014 human papilloma viru s vaccine, quadrivalent Christina Portia Other [employer] Other 11-06-2014 HPV, unspecified formulation Ibis Rhonda Limer Work Phone: [address] Work Phone: 06-26-2014 HPV, unspecified formulation Celeste Rinradha [facility] 06-26-2014 human papilloma viru s vaccine, quadrivalent Christina Portia Other [employer] Other 04-20-2014 human papilloma viru s vaccine, quadrivalent Christina Portia Other [employer] Other 04-20-2014 meningococcal polysaccharide (groups A, C, Y and W-135) diphtheria toxoid conjugate vaccine (MCV4P) Christina Portia Other [employer] [facility] [employer] Other 04-20-2014 tetanus toxoid, redu richar diphtheria toxoid, and acellular pertussis vaccine, adsorbed Christina Pearce Other [facility] 04-20-2014 HPV, unspecified formulation Celestenikole MartinezOb Hospitalist [facility] 04-20-2014 meningococcal ACWY vaccine, unspecified formulation Celeste RinOb Hospitalist Group [facility] 12-27-2006 diphtheria, tetanus toxoids and acellular pertussis vaccine, unspecified formulation Ibis A Myra Work Phone: [facility] Work Phone: 12-27-2006 DTaP, unspecified formulation Celeste RinOb Hospitalist Group [facility] 12-27-2006 measles, mumps, rubella, and varicella virus vaccine Ibis A Myra Work Phone: [facility] 12-27-2006 poliovirus vaccine, inactivated Ibis A Myra Work Phone: [facility] Work Phone: 12-27-2006 poliovirus vaccine, unspecified formulation Celeste RinOb Hospitalist Group [facility] 02-06-2003 diphtheria, tetanus toxoids and acellular pertussis vaccine, unspecified formulation Ibis A Myra Work Phone: [facility] Work Phone: 02-06-2003 DTaP, unspecified formulation Celeste Rinkes [facility] 02-06-2003 haemophilus influenz ae type b vaccine, conjugate unspecified formulation Ibis A Myra Work Phone: [place] [address] DO Work Phone: 02-06-2003 Hib, unspecified formulation Celeste Rinkes [facility] 02-06-2003 measles, mumps and rubella virus vaccine Ibis A Myra Work Phone: [facility] 02-06-2003 varicella virus vaccine Susan ica A Myra Work Phone: [facility] 07-02-2002 diphtheria, tetanus toxoids and acellular pertussis vaccine, unspecified formulation Ibis A Myra Work Phone: [place] [address] DO Work Phone: 07-02-2002 DTaP, unspecified formulation Celeste [employer] [facility] 07-02-2002 haemophilus influenz ae type b vaccine, conjugate unspecified formulation Ibis A Myra Work Phone: [place] [address] DO Work Phone: 07-02-2002 Hib, unspecified formulation Celeste Rinkes [facility] 07-02-2002 pneumococcal conjuga te vaccine, 7 valent Ibis A Myra Work Phone: [place] [address] DO Work Phone: 07-02-2002 poliovirus vaccine, inactivated Ibis A Myra Work Phone: [facility] 250 DO Work Phone: 07-02-2002 poliovirus vaccine, unspecified formulation Celeste Rinkes [facility] 05-19-2002 diphtheria, tetanus toxoids and acellular pertussis vaccine, unspecified formulation Ibis A Myra Work Phone: [facility] 250 DO Work Phone: 05-19-2002 DTaP, unspecified formulation Celeste Rinkes [facility] 05-19-2002 haemophilus influenz ae type b conjugate and Hepatitis B vaccine Ibis A Myra Work Phone: [facility] 250 DO Work Phone: 05-19-2002 pneumococcal conjuga te vaccine, 7 valent Ibis A Myra Work Phone: [place] [address] DO Work Phone: 05-19-2002 poliovirus vaccine, inactivated Ibis A Myra Work Phone: [place] [address] DO Work Phone: 05-19-2002 poliovirus vaccine, unspecified formulation Celeste Rinkes [facility] 03-05-2002 diphtheria, tetanus toxoids and acellular pertussis vaccine, unspecified formulation Ibis A Myra Work Phone: [place] [address] DO Work Phone: 03-05-2002 DTaP, unspecified formulation Celeste Rinkes [facility] 03-05-2002 haemophilus influenz ae type b conjugate and Hepatitis B vaccine Ibis A Myra Work Phone: [facility] 250 DO Work Phone: 03-05-2002 poliovirus vaccine, inactivated Ibis A Myra Work Phone: [facility] 250 DO Work Phone: 03-05-2002 poliovirus vaccine, unspecified formulation Celeste Rinkes [facility] 2001 hepatitis B vaccine, pediatric or pediatric/adolescent dosage Ibis [employer] Work Phone: [facility] Payers Date Payer Category Payer Self-pay [id number] 2023 Unknown [id number] 2022 Medicaid HMO [employer] [id number] 2021 Private Health Insurance [id number]. [id number] 2021 Private Health Insurance [id number] 2.16.840.1.160126.19 2020 Private Health Insurance [facility] CHOICE PLUS [id number] 2020-Present [phone] [address] [place] [address] HMO [id number]. [id number] 2020 Unknown [id number] 2017 Managed Care Other (unspecified) [id number]. [id number] 2013 Medicaid [employer] [id number] 2013-Present [phone] [address] [place] [address] Medicaid [id number]. [id number] 2013 Medicaid [id number] [id number]. [id number] 2007 Unknown [id number] 2.16.840.1.304037.19 2001 Unknown [id number] 2.16.840.1.882926.3.579.2. 1068 2001 Unknown [id number] 2.16.840.1.675217.3.579.2. 594 2001 Unknown [id number] 2.16.840.1.459004.3.579.2. 594 2001 Unknown [id number] 2.16.840.1.613374.3.579.2. 356 2001 Unknown [id number] 2.16.840.1.825079.3.579.2. 356 2001 Unknown [id number] 2.16.840.1.706771.3.579.2. 356 2001 Unknown [id number] 2.16.840.1.663136.3.579.2. 356 2001 Unknown [id number] 2.16.840.1.000243.3.579.2. 356 2001 Unknown [id number] 2.16.840.1.639649.3.579.2. 356 2001 Unknown [id number] 2.16.840.1.162347.3.579.2. 356 2001 Unknown [id number] 2.16.840.1.772142.3.579.2. 356 2001 Unknown [id number] 2.16.840.1.319428.3.579.2. 727 2001 Unknown [id number] 2.16.840.1.391450.3.579.2. 727 2001 Unknown [id number] 2.16.840.1.809024.3.579.2. 727 2001 Unknown [id number] 2.16.840.1.577903.3.579.2. 727 2001 Unknown [id number] 2.16.840.1.547016.3.579.2. 727 2001 Unknown [id number] 2.16.840.1.503680.3.579.2. 1258 2001 Unknown [id number] 2.16.840.1.311756.3.579.2. 1258 2001 Unknown [id number] 2.16.840.1.713532.3.579.2. 1258 2001 Unknown [id number] 2.16.840.1.234201.3.579.2. 1258 2001 Unknown [id number] 2.16.840.1.495618.3.579.2. 1258 2001 Unknown [id number] 2.16.840.1.644500.3.579.2. 1258 2001 Unknown [id number] 2.16.840.1.022310.3.579.2. 1258 2001 Unknown [id number] 2.16.840.1.094261.3.579.2. 1258 2001 Unknown [id number] 2.16.840.1.580045.3.579.2. 1258 2001 Unknown [id number] 2.16.840.1.973901.3.579.2. 1258 2001 Unknown [id number] 2.16.840.1.364504.3.579.2. 1258 2001 Unknown [id number] 2.16.840.1.731304.3.579.2. 1258 2001 Unknown [id number] 2.16.840.1.923931.3.579.2. 1259 2001 Unknown [id number] 2.16.840.1.957451.3.579.2. 1259 2001 Unknown [id number] 2.16.840.1.272013.3.579.2. 1259 2001 Unknown [id number] 2.16.840.1.792815.3.579.2. 1259 2001 Unknown [id number] 2.16.840.1.006893.3.579.2. 1259 2001 Unknown [id number] 2.16.840.1.695647.3.579.2. 1286 2001 Unknown [id number] 2.16.840.1.639680.3.579.2. 1286 2001 Unknown [id number] 2.16.840.1.669273.3.579.2. 1286 2001 Unknown [id number] 2.16.840.1.743714.3.579.2. 1286 2001 Unknown [id number] 2.16.840.1.537134.3.579.2. 1286 Unknown Unknown Venessa BC/JESSICA [id number] Unknown [id number] 2.16.840.1.246303.3.579.2. 531 Social History Date Type Detail Facility Tobacco smoking stat [facility] Tobacco smoking consumption unknown [facility] Work Phone: Start: 2001 Sex Assigned At Not on file [facility] Start: 01-15-2022 End: 07-31-2022 Exposure to SARS-CoV-2 (event) Not sure [facility] Start: 12-28-2022 End: 02-25-2024 Sex Assigned At [facility] Start: 12-28-2022 End: 02-25-2024 No alcohol use No alcohol use [facility] Comment on above: very rarely soda; Start: 09-20-2019 End: 02-20-2023 Tobacco smoking status NHIS Never smoked tobacco (finding) [facility] Start: 2001 Sex Assigned At Female F [facility] Start: 07-31-2022 End: 02-20-2023 Tobacco use and exposure Smokeless tobacco non-user [facility] Adult Depression Screening Assessment 0 [facility] Start: 09-29-2023 Gender identity Identifies as female gender (finding) [facility] Start: 06-04-2024 End: 10-27-2024 Alcoholic beverage intake Ex-drinker (finding) [facility] Do you belong to any clubs or organizations such as faith groups, unions, fraFiksu or athletic groups, or school groups? No [...] Start: 04-27-2015 End: 09-26-2024 Sex Female (finding) [facility] NEGATED: Highlighted rowStart: NINF History of tobacco use Passive smoker [facility] Medical Equipment Procedure Code Equipment Code Equipment Origin al Text Equipment Identifier Dates 1 strip by In Vi tro route Daily Use in the morning prior to breakfast, 1 hour after each meal for a total of 4times daily. [id number] Start: 09-18-2024 End: 10-18-2024 1 each by In Vit ro route Daily Use to check FSBS four times daily [id number] Start: 09-18-2024 End: 10-18-2024 Clinical Notes 09-24-2007 to 11-10-2024 Irvin Mendes LPN - 11/10/2024 9:00 AM Teresa Bar, GIFTS OFFICER - 10/29/2024 3:50 PM Teresa Bar, GIFTS OFFICER - 10/15/2024 3:30 PM Titi Mendes, GIFTS OFFICER - 10/02/2024 11:00 AM EST Note Date [...] nursing note reviewed. Exam conducted with a coil former present. Vitals: Estimated body mass index is [...] Osei Malik DO documented in this encounter [facility] 10-29-2024 History of Present illness Narrative [...] nursing note reviewed. Exam conducted with a coil former present. Vitals: Estimated body mass index is [...] Osei Malik DO documented in this encounter [facility] 10-15-2024 History of Present illness Narrative [...] nursing note reviewed. Exam conducted with a coil former present. Vitals: Estimated body mass index is [...] Osei Malik DO documented in this encounter [facility] 10-02-2024 History of Present illness Narrative [...] nursing note reviewed. Exam conducted with a coil former present. Vitals: Estimated body mass index is [...] Osei Malik DO documented in this encounter [facility] 09-25-2024 Telephone encounter Note Patient called [...] today. Patient was advised to report to [facility] for check and she was asking if she could go to [facility] as [place] closer she was advised we prefer [place] but she can go where she is comfortable. Patient states will go to [facility] as she is at work and that's closer right now. Patient advised note would be in chart. [facility] Work Phone: 09-25-2024 Miscellaneous Notes Patient [...] today. Patient was advised to report to [facility] for check and she was asking if she could go to [facility] as that's closer she was advised we prefer [place] but she can go where she is comfortable. Patient states will go to [facility] as she is at work and that's closer right now. Patient advised note would be in chart. documented in this encounter [facility] 09-18-2024 History of Present illness Narrative [...] nursing note reviewed. Exam conducted with a coil former present. Vitals: Estimated body mass index is [...] Osei Malik DO documented in this encounter [facility] 09-03-2024 History of Present illness Narrative [...] Osei Malik DO documented in this encounter [facility] 09-02-2024 History of Present illness Narrative Images from the original note were not included. [facility] Follow-Up VIRTUAL VISIT This is a virtual visit using Apprissom Video Visit. It required patient-provider interaction for the medical decision making as documented below. I have communicated my name and active licensure. The patient's identity and physical location were verified at the time of this visit. Either the patient or their legal sales utility representative has been informed of the risks [...] diameter 3.5 cm 30-day event monitor March 2022: patient triggered episodes all corresponded to normal [...] diagnosis) (Z3A.23) 23 weeks gestation of Madyson aMi is a 23 year old female here [...] which included preparing to see the patient, cgld-tr-eref patient care, completing clinical documentation, obtaining and/or reviewing separately obtained history, performing a medically appropriate examination, and counseling and educating the patient/family/caregiver. Jyoti Dickey PA-C Neuromuscular Medicine [address] [place] [address]. [id number] Appointment: [phone] During our virtual visit encounter we discussed [...] bright light?: Mild documented in this encounter [facility] 09-02-2024 Note HNO ID: [id number] Author: JYOTI DICKEY PA-C Service: ? Author Type: Physician Report Analyst Type: Progress Notes Filed: 09/02/2024 11:21 Note Text: [facility] Follow-Up VIRTUAL VISIT This is a virtual visit using Apprissom Video Visit. It required patient-provider interaction for the medical decision making as documented below. I have communicated my name and active licensure. The patient's identity and physical location were verified at the time of this visit. Either the patient or their legal sales utility representative has been informed of the risks [...] diameter 3.5 cm 30-day event monitor March 2022: patient triggered episodes all corresponded to normal [...] female here t (more content not included)... [facility] 08-29-2024 Miscellaneous Notes Fire Investigator spoke to patient . Patient has complains of SOB which she states is mainly at night time. She has recently seen her PCP who stated that her lungs are tight/restricted and prescribed her an inhaler. Today the patient is feeling better and states that when she checked her SPO2 today it was at 96%. Fire Investigator advised patient to monitor and if her O2 Sat falls under 95% and/or the inhaler does not help to present to her nearest ER. Patient verbalized understanding. documented in this encounter [facility] 08-29-2024 Telephone encounter Note Fire Investigator spoke to patient . Patient has complains of SOB which she states is mainly at night time. She has recently seen her PCP who stated that her lungs are tight/restricted and prescribed her an inhaler. Today the patient is feeling better and states that when she checked her SPO2 today it was at 96%. Fire Investigator advised patient to monitor and if her O2 Sat falls under 95% and/or the inhaler does not help to present to her nearest ER. Patient verbalized understanding. [facility] 08-27-2024 Telephone encounter Note Alternative inhaler requested by pharmacy. [facility] 08-27-2024 Miscellaneous Notes Alternative inhaler requested by pharmacy. documented in this encounter [facility] 08-27-2024 History of Present illness Narrative Images from the original note were not included. Subjective Patient ID: Madyson Mai is a 23 y.o. female who presents for asthma. Madyson is present today for evaluation of asthma. Admits she is 22 weeks with twins, she is not sure if that is what is flaring up her asthma. She has not see her cafeteria aide in a couple of years and her [...] fail to improve. documented in this encounter [facility] 08-13-2024 History of Present illness Narrative [...] no Have you been seen here at [facility] in a previous ? no Recent ER visits or hospitalizations? no Bring blood sugar log or meter with you today? (Please bring them with you for every visit at [facility]) n/a Flu vaccine (Jul-November)? Yes Any concerns [...] Resource Strain: Low Risk (02/25/2024) Received from [facility] Overall Financial Resource Strain (CARDIA) Difficulty of Paying Living Expenses: Not very hard Food Insecurity: No Food Insecurity (08/13/2024) Hunger Screening Food Insecurity - Worry: Never True Food Insecurity - Inability: Never True Transportation Needs: No Transportation Needs (02/25/2024) Received from [facility] PRAPARE - Transportation Lack of Transportation (Medical): No Lack of Transportation (Non-Medical): No Physical Activity: Inactive (02/25/2024) Received from [facility] Exercise Vital Sign Days of Exercise per Week: 0 days Minutes of Exercise per Session: 0 min Stress: No Stress Concern Present (02/25/2024) Received from [facility] [employer] [place] [employer] - Occupational Stress Questionnaire Feeling of Stress : Only a little Social Connections: Moderately Integrated (02/25/2024) Received from [facility] Social Connection and Isolation Panel [NHANES] Frequency of Communication with Friends and Family: More than three times a week Frequency of Social Gatherings with Friends and Family: Three times a week Attends Buddhist Services: More than 4 times per year Active Member of Clubs or Organizations: No Attends Club or Organization Meetings: Patient declined Marital Status: Interpersonal Safety: Not on file Housing Instability: Low Risk (02/25/2024) Received from [facility] Housing Stability Vital Sign Unable to [...] intervening membrane. I discussed with Ms. Madyson Charlton Mariah today the increased risks of twin pregnancies [...] complications, or both, related to use. The [place] [employer] and the [...] tachycardia syndrome) She follows with Neurology at [facility]. Last visit was on 07/02/2024. External records reviewed. 07/02/2024 - General Neurology, Joie Seaman APRN.WHITESMITH ASSESSMENT Madyson Mai is a 23 year [...] continue with routine care in your office [place], the CDC, and other organizations representing maternal and public health professionals recommend that , , and lactating people and those considering receive the COVID-19 vaccination. Vaccination is the best method to reduce maternal and complications of SARS-CoV-2 infection. This document was created with [employer] technology. Though I make every effort to review the dictation as it is transcribed, on occasion the spoken word can be misinterpreted by the technology leading to inappropriate words, phrases, or sentences. This note is addressed to the requesting provider as a consultation for clinical guidance. Specific medical abbreviations are occasionally used and those are generally approved by the [place]?Board of?Obstetrics and?Gynecology?as well as?Loretta s abbreviations. The above plan of care was based solely on the diagnoses for which a consultation was requested. ?More frequent testing may be indicated based on her other medical/obstetrical conditions. The management of other or medical conditions is beyond the scope of requested consultation and will continue to be followed by the primary assembler fitter or primary care provider. Thank you for [...] procedures Referring and communicating with other health skin care specialist (not separately reported) Documenting clinical information in the electronic or other health record Independently interpreting results (not separately reported) and communicating results to the patient/family/caregiver Care coordination (not separately reported) documented in this encounter [facility] Snapette [facility] 08-06-2024 Telephone encounter Note Can we have her schedule for a follow up appointment. Can be virtual or in person. Thanks, AM [facility] Work Phone: 08-06-2024 Miscellaneous Notes Can we have her schedule for a follow up appointment. Can be virtual or in person. Lesli, AM documented in this encounter [facility] 08-05-2024 History of Present illness Narrative [...] nursing note reviewed. Exam conducted with a coil former present. Vitals: Estimated body mass index is [...] obtained without difficulty and patient was given [facility] order to have obtained. Orders Placed This Encounter Procedures CHLAMYDIA TRACHOMATIS (GENITO/STI) Neisseria gonorrhea DNA probe, direct Alpha fetoprotein, maternal POCT urinalysis dipstick manually resulted Follow Up: Patient is to return to our office in 4 weeks for routine OB appointment Documented by Annika Silva LPN on behalf of: TOMASZ Rizvi documented in this encounter [facility] 07-03-2024 History of Present illness Narrative [...] current . Patient is being referred to [facility] for her twin , gave her information about who she will be seeing there. No orders of the defined types were placed in this encounter. Follow Up: Patient is to return to office in 4 weeks for routine OB appointment. Documented by Ibis Sandoval on behalf of: TOMASZ Rizvi documented in this encounter [facility] 07-02-2024 History of Present illness Narrative Images from the original note were not included. [facility] Follow Up / Established Virtual Visit I have communicated my name and active licensure. The patient's identity and physical location were verified at the time of this visit. Either the patient or their legal sales utility representative has been informed of the risks and benefits of -- and alternatives to -- treatment through a remote evaluation and consents to proceed with the evaluation remotely. Individuals who were included in, or assisted with the encounter were: Madyson Mai Joie Seaman APRN.WHITESMITH Chief Complaint/Issues: Madyson Mai is a 23 year old female seen in the [facility] for: POTS Most Recent [...] Plan 07/02/2024 - General Neurology, Joie Seaman, JOHNNY.WHITESMITH ASSESSMENT Madyson Mai is a 23 year [...] which included preparing to see the patient, quxq-en-zrbn patient care, completing clinical documentation, obtaining and/or reviewing separately obtained history, performing a medically appropriate examination, counseling and educating the patient/family/caregiver, and ordering medications, tests, or procedures. Joie Seaman, LIFE SCIENTIST.WHITESMITH 06/28/2024 PROMIS Global Health Physical Health Summary [...] and warrants attention documented in this encounter [facility] 07-02-2024 Note HNO ID: [id number] Author: JOIE SEAMAN APRN.CNP Service: ? Author Type: Nurse Practitioner Type: Progress Notes Filed: 07/02/2024 19:57 Note Text: [facility] General Neurology Follow Up / Established Virtual Visit I have communicated my name and active licensure. The patient's identity and physical location were verified at the time of this visit. Either the patient or their legal sales utility representative has been informed of the risks and benefits of -- and alternatives to -- treatment through a remote evaluation and consents to proceed with the evaluation remotely. Individuals who were included in, or assisted with the encounter were: Madyson Charlton Randallleilani Joie Seaman APRN.CNP Chief Complaint/Issues: Madyson Mai is a 23 year old female seen in the [facility] for: POTS Most Recent [...] Plan 07/02/2024 - General Neurology, Joie Seaman, LIFE SCIENTIST.WHITESMITH ASSESSMENT Madyson Mai is a 23 year [...] Mostly Moderately S (more content not included)... [facility] 06-04-2024 History of Present illness [...] nursing note reviewed. Exam conducted with a coil former present. Vitals: Estimated body mass index is [...] possibly adding medication. Pt being referred to [facility] for TWIN gestation. Expectations throughout regarding labs, ultrasounds, and appointments have been discussed with the patient in detail. It was reiterated that the patient is to drink 6-8 glasses of water a day, eat 6 small meals a day, do not consume raw or undercooked meat, and stay away from formerly [facility]. Patient has been consulted regarding any further do's and don'ts of . Patient voiced understanding and all questions and concerns were answered. Orders Placed This Encounter Procedures POCT urinalysis dipstick manually resulted Follow Up: Patient is to return in 4 weeks for routine OB appointment. Documented by Camilla Bar LPN on behalf of: Osei Malik DO documented in this encounter [facility] 05-23-2024 History of Present illness Narrative [...] providers found * documented in this encounter [facility] 05-20-2024 History of Present illness Narrative [...] topical cream for less systemic absorption. Consider direct care staffer. Can provide pt with referral to PT if symptoms do not improve with the above. X-rays not yet indicated, especially as pt is . Follow up if symptoms worsen or fail to improve. documented in this encounter [facility] 03-20-2024 History of Present illness Narrative Images from the original note were not included. [facility] Follow-Up VIRTUAL VISIT This is a virtual visit using Apprissom Video Visit. It required patient-provider interaction for the medical decision making as documented below. I have communicated my name and active licensure. The patient's identity and physical location were verified at the time of this visit. Either the patient or their legal sales utility representative has been informed of the risks [...] which included preparing to see the patient, gcvq-dq-vkmk patient care, completing clinical documentation, obtaining and/or reviewing separately obtained history, performing a medically appropriate examination, counseling and educating the patient/family/caregiver, and ordering medications, tests, or procedures. Jyoti Dickey PA-C Neuromuscular Medicine [address] [place] [address]. [id number] Appointment: [phone] During our virtual visit encounter we discussed [...] problem? : Mild documented in this encounter [facility] 03-20-2024 Note HNO ID: [id number] Author: NOBLE, JYOTI, PA-C Service: ? Author Type: Physician Report Analyst Type: Progress Notes Filed: 03/20/2024 15:17 Note Text: [facility] Follow-Up VIRTUAL VISIT This is a virtual visit using [employer] Modular Zoom Video Visit. It required patient-provider interaction for the medical decision making as documented below. I have communicated my name and active licensure. The patient's identity and physical location were verified at the time of this visit. Either the patient or their legal sales utility representative has been informed of the risks [...] the mean hea (more content not included)... [facility] 11-30-2023 History of Present illness Narrative Images from the original note were not included. [facility] New Patient Evaluation Madyson [...] experienced LOC while walking up the stairs. [place] prodromal symptoms including lightheadedness and tunnel vision. [...] Plantarflexion 5/5 5/5 Movement/Coordination Finger-to- nose-finger and jkhj-os-cglw intact bilaterally. No evidence of ataxia arms. [...] which included preparing to see the patient, ymnq-id-cnhh patient care, completing clinical documentation, obtaining and/or [...] on 11/30/23. Jyoti Dickey PA-C Neuromuscular Medicine [address] [place] [address]. [id number] Appointment: [phone] 1. This office note has been dictated [...] problem? : Moderate documented in this encounter [facility] 11-30-2023 Note HNO ID: [id number] Author: JYOTI DICKEY PA-C Service: ? Author Type: Physician Report Analyst Type: Progress Notes Filed: 11/30/2023 11:14 Note Text: [facility] New Patient Evaluation Madyson [...] experienced LOC while walking up the stairs. [place] prodromal symptoms including lightheadedness and tunnel vision. [...] breathing: - Tac (more content not included)... [facility] 11-12-2023 Note HNO ID: [id number] Author: ?, ?, ? Service: ? Author [...] Care Visit completed when applicable. Gauri Harris [facility] 11-12-2023 History of Present illness [...] applicable. Gauri Harris documented in this encounter [facility] 10-10-2023 Note HNO ID: [id number] Author: AURORA SANTIAGO PA-C Service: ? Author Type: Physician Report Analyst Type: Progress Notes Filed: 10/10/2023 16:33 Note Text: [facility] New Patient Evaluation CHIEF [...] No current facility-adminis (more content not included)... [facility] 10-10-2023 Note HNO ID: [id number] Author: ANGELIQUE RUTH MD Service: ? Author [...] VE Couplets or VE Triplets were present. [facility] 07-20-2023 Telephone encounter Note Call to Madyson to discuss referral to dysautonomia clinic. Informed her that we are unable to provide dysautonomia evaluation at this time. Provided number for [facility] scheduling service. No other needs at this time. [facility] 07-20-2023 Miscellaneous Notes Call to Madyson to discuss referral to dysautonomia clinic. Informed her that we are unable to provide dysautonomia evaluation at this time. Provided number for [facility] scheduling service. No other needs at this time. documented in this encounter [facility] 07-10-2023 Note HNO ID: [id number] Author: Jose Armando Grey, DO Service: ? Author Type: Physician Type: Progress Notes Filed: 07/10/2023 10:08 AM Note Text: [facility] Office Visit Documentation Note [facility] Sports Medicine Orthopaedic and Rheumatologic [place] HISTORY OF PRESENT ILLNESS (HPI) CHIEF COMPLAINT / REASON FOR VISIT SERVICE DATE: July 10, 2023 PCP: No primary care provider on file. Madyson Schmid is here today at request of Dr. Jose Armando Schmid specifically for consultation of my opinion in regards to the chief complaint listed below. Correspondence will be shared today via the [employer] electronic health record or through regular mail, [...] the treatment plan. Jose Armando Grey D.O. [facility] Orthopaedic and Rheumatologic Shuttle Preparation Supervisor, [facility] AND T.E.A.M. Program Team Physician, [facility] Baseball Club Consulting Physician, Ceres Martin Nagel, [employer] Reports Developer [phone] [facility] 07-10-2023 History of Present illness Narrative Images from the original note were not included. [facility] Office Visit Documentation Note [facility] Sports Medicine Orthopaedic and Rheumatologic [place] HISTORY OF PRESENT ILLNESS (HPI) CHIEF COMPLAINT / REASON FOR VISIT SERVICE DATE: July 10, 2023 PCP: No primary care provider on file. Madyson Schmid is here today at request of Dr. Jose Armando Schmid specifically for consultation of my opinion in regards to the chief complaint listed below. Correspondence will be shared today via the [employer] electronic health record or through regular mail, [...] the treatment plan. Jose Armando Grey D.O. [facility] Orthopaedic and Rheumatologic Shuttle Preparation Supervisor, [facility] & T.E.A.M. Program Team Physician, [facility] Baseball Club Consulting Physician, Ceres Martin Nagel, [employer] Reports Developer [phone] documented in this encounter [facility] 12-28-2022 History of Present illness Narrative [...] surgery Evaluated by DR Case ([facility] [place]) in 2020 no rheum issue found and [...] Swollen Glands: No documented in this encounter [facility] 07-31-2022 History of Present illness Narrative Madyson Schmid is a 21 year old female who presents for follow up: [facility] negative sed rate and crp Negative RF and ccp Negative ARMANI and JASNO panel PREVIOUS DIAG rash , arthralgias INTERVAL [...] surgery Evaluated by DR Case ([facility] [place]) in 2020 no rheum issue found and [...] Swollen Glands: No documented in this encounter [facility] 07-10-2022 History of Present illness Narrative [...] she did get a second opinion in [place], and no change in medication was suggested [...] with paucity of objective findings on the [id number]. Abnormal tilt table test, with a combination [...] I will defer that to Dr. Maza [facility] [address] DO Work Phone: 06-12-2022 Note Pre-procedure Verifi cation and Time Out: Pre-Procedure Verification and Time Out: Procedure Locationbedside PRE-PROCEDURE Verificationcompleted TIME OUT - Final Verificationcompleted immediately prior to procedure start General Information: Anesthesia Critical Care: Non-Anesthesia Date/Time of Procedure: 12-Jun-2022 Post-Procedure Diagnosis: syncope Procedure Name: tilt table test Findings: grossly normal anatomy Procedure performed by: tx Report Analyst(s): none Estimated Blood Loss (mL): none Specimen: [...] Last Updated: 14-Jun-2022 11:56 by Annalee Maza) [facility] 03-24-2022 History of Present illness Narrative Patient [...] while walking to the bathroom.She will see cafeteria aide in the near future, she had her [...] that, we will have to schedule at [facility], and patient is okay with driving.4. Lifestyle modifications such as regular aerobic activity as tolerated, excessive sodium intake, and possibly low-dose beta-blockers can be tried. If her breathing gets worse on the beta-blockers, then she should stop it. We will decide after seen by pulmonary, and also after the results of culpable test are available. [facility] Work Phone: 03-24-2022 History of [...] while walking to the bathroom.She will see cafeteria aide in the near future, she had her pulmonary function test which I reviewed, there is concern for chronic asthma, but no reactive airway disease.She has 3 dogs that she had, and 1 cat at home.She is not orthostatic. She is feeling palpitations quite a bit.Results of the pulmonary function test and a Micah of [employer] was reviewed. Also reviewed stress test and [...] that, we will have to schedule at [facility], and patient is okay with driving.4. Lifestyle modifications such as regular aerobic activity as tolerated, excessive sodium intake, and possibly low-dose beta-blockers can be tried. If her breathing gets worse on the beta-blockers, then she should stop it. We will decide after seen by pulmonary, and also after the results of culpable test are available. -[facility]-Purnima Cheek DO Work Phone: 02-02-2022 Miscellaneous Notes [...] P Mathai, MD documented in this encounter [facility] 01-25-2022 History of Present illness Narrative [...] February Evaluated by DR Case ([facility]) in 2020 no rheum issue found and [...] February Evaluated by DR Case ([facility]) in 2020 no rheum issue found and [...] Irvin Hanna MD documented in this encounter [facility] 01-10-2022 Evaluation note Encounter Date Diagnosis Assessment Notes Dec, Skin rash (ICD-10 - R21) Dec, Other Transient recurrent color mold insert changer the knees and toes I do [...] will go ahead with her evaluation in [facility]. [employer] Other 01-17-2022 Evaluation note* Encounter Date Diagnosis [...] day as needed for pain and swelling. [employer] Other 07-01-2021 History of Present illness Narrative* [...] heart murmur and has been transferred to [facility] * There [...] 3 times daily. New prescription sent. Consider [place] in the future. * Order 30-day monitor [...] needed, treatment options, risks, benefits, and imponderables. [place] [employer] lifestyle changes and behavioral modification discussed. All questions answered in detail. Counseling over 50% visit regarding above. Patientappreciative of care. * At the end the office visit, she did report that she will be seeing an cardiac specialist in [place]. We did discuss that she could hold [...] errors as software dictation application being used. -[facility] [address] DO Work Phone: 1(560) 377-408808-25-2020 History of Present illness Narrative* She is [...] exposed to secondhand smoke from her mother. [facility] Work Phone: 1([phone]) 955-178007-09-2020 History of Present illness Narrative* Patient is [...] twin brother had to be taken to [facility], and has history of heart murmur. [...] arise, * Sincerely, * Melodie alcaraz MD [facility] Work Phone: 1(269) 575-591207-01-2020 History of Present illness Narrative* Patient is [...] twin brother had to be taken to [facility], and has history of heart murmur. [...] arise, * Sincerely, * Melodie alcaraz MD [facility] [address] DO Work Phone: [phone] 402-166906-30-2020 History of Present illness Narrative* Patient is [...] twin brother had to be taken to [facility], and has history of heart murmur. [...] arise, * Sincerely, * Melodie alcaraz MD [facility] [address] DO Work Phone: 1(851) 715-271401-01-2008 History general Narrative - Reported* Type Description Date Medical History general health good Surgical History tonsillectomy and adenoidectomy 09/2007 [employer] Other 01-01-2008 History general Narrative - Reported* Type Description Date Medical History general health good Surgical History tonsillectomy and adenoidectomy 09/2007 Surgical History right knee cleaned up scar tiss ue 2020 [employer] Other Chief complaint Narrative - ReportedMADYSON SCHMID is being seen for a cardiovascular evaluation of abnormal test(s) results and dyspnea.[facility] [address] DO Work Phone: [place] complaint Narrative - ReportedMADYSON SCHMID is being seen for a cardiovascular evaluation of abnormal test(s) results and dyspnea.[facility] Work Phone: Evaluation + Plan note No data available for this section [facility] Diagnosis Pain and swelling of knee, right- Primary Joint stiffness Stiffness of joint, not elsewhere classified, unspecified site documented [facility] noteNo assessment information availableC[facility] Foundation Work Phone: Evaluation note* Diagnosis Pain and swelling of knee, right- Primary Joint stiffness Stiffness of joint, not elsewhere classified, unspecified site Inflammatory arthritis Unspecified inflammatory polyarthropathy [facility] Diagnosis Pain and swelling of knee, right- Primary Joint stiffness Stiffness of joint, not elsewhere classified, unspecified site [facility] Diagnosis Right knee pain, unspecified chronicity- Primary [facility] Diagnosis Chronic pain of right knee- Primary Tendinopathy of gluteal region Unspecified disorder of synovium, tendon, and bursa [facility] Diagnosis Orthostatic lightheadedness- Primary Dizziness and giddiness [facility] Diagnosis POTS (postural orthostatic tachycardia syndrome)- Primary Tachycardia, unspecified [facility] Diagnosis POTS (postural orthostatic tachycardia syndrome)- Primary Tachycardia, unspecified [facility] Diagnosis POTS (postural orthostatic tachycardia syndrome)- Primary Tachycardia, unspecified Near syncope Syncope and collapse [facility]* Diagnosis Second trimester state, incidental 14 weeks gestation of documented in this encounter [facility]* Diagnosis Thumb pain, right- Primary [...] Leg cramping Heartburn documented in this encounter [facility]* Diagnosis Thumb pain, right- Primary [...] syndrome) Unspecified tachycardia documented in this encounter [facility] HealthcareEvaluation [facility]* Diagnosis Thumb pain, right- Primary De Quervain's disease (tenosynovitis) Radial styloid tenosynovitis PCOS (polycystic ovarian syndrome) Polycystic ovaries POTS (postural orthostatic tachycardia syndrome) Unspecified tachycardia Tension headache- Primary Encounter for immunization POTS (postural orthostatic tachycardia syndrome) Unspecified tachycardia Well adult exam Routine general medical examination at a [facility] facility Mild intermittent asthma with acute exacerbation (CMS/HCC)- Primary Mild persistent asthma without complication (CMS/HCC) documented in this encounter [facility] HealthcareEvaluation note* Diagnosis POTS (postural orthostatic tachycardia syndrome)- Primary Tachycardia, unspecified 23 weeks gestation of state, incidental [facility] Diagnosis Thumb pain, right- Primary [...] weeks gestation of documented [facility] this [facility] Diagnosis Dichorionic diamniotic twin in second trimester- Primary POTS (postural orthostatic tachycardia syndrome) Unspecified tachycardia Asthma during 20 weeks gestation of documented in this encounter [facility]* Diagnosis Thumb pain, [...] heart murmur and had been transferred to [facility] * There [...] patient that she saw Dr. Muñiz at [facility] for second opinion regarding neurally mediated syncope and near syncope. He agreed with evaluation and management and patient opted to follow-up here at [facility] in [place]. * Zio patch August 2022. All rhythms [...] needed, treatment options, risks, benefits, and imponderables. [place] [employer] lifestyle changes and behavioral modification [...] and stable orthostatic dizziness. * Disease Monitoring: [facility] 600 DO Work Phone: Hospital Discharge instructions No data available for this section [facility] HospitalInstructionsNot on filedocumented in this encounter [facility] SystemInstructionsNot on filedocumented in this encounter [facility] SystemInstructionsNot on filedocumented in this encounter [facility] SystemInstructionsNot on filedocumented in this encounter [facility] SystemInstructionsNot on filedocumented in this encounter [facility] note No data available for this section [facility] HospitalReason for referral (narrative)* Diagnostic Procedure Only (Routine) - Pending Review Specialty Diagnoses / Procedures Referred By Rachel lópez Referred To Contact XR IMAGING Diagnoses Right knee pain, unspecified chronicity Procedures XR KNEE GENERAL 4V AP BOTH/PA BOTH/LAT/MERC RIGHT RADIOLOGIC EXAM KNEE COMPLETE 4/[place] [address] [place] [address] [place] [address] Referral ID Status Reason Start Date Expiration Date Visits Requested Visits Authorized [id number] Pending Review Auto-Generat ed Referral 3 08/04/2024 1 1 [facility] for visit Narrativerash knee referral from Cj Jaimes, She gets a funny rash on her knee and toesNorth Aimetis Other Summary Purpose Family History Unknown Family [...] flu vaccine Chief Complaint Admit Date Unknown Dalia 2nd, 2025 2: 10pm Additional Source Comments Source Comments (unrecognize d section and content) In the event this informatio n is protected by the Federal Confidentiality of Alcohol and Drug Abuse Patient Records regulations: The Federal rules restrict any use of the information to criminally investigate or prosecute any alcohol or drug abuse patient.[facility] Hospital[facility] the event this information is protected by the Federal Confidentiality of Alcohol and Drug Abuse Patient Records regulations: The Federal rules restrict any use of the information to criminally investigate or prosecute any alcohol or drug abuse patient.[facility] HospitalIn the event this information is protected by the Federal Confidentiality of Alcohol and Drug Abuse Patient Records regulations: The Federal rules restrict any use of the information to criminally investigate or prosecute any alcohol or drug abuse patient.[facility] HospitalIn the event this information is protected by the Federal Confidentiality of Alcohol and Drug Abuse Patient Records regulations: The Federal rules restrict any use of the information to criminally investigate or prosecute any alcohol or drug abuse patient.[facility] HospitalIn the event this information is protected by the Federal Confidentiality of Alcohol and Drug Abuse Patient Records regulations: The Federal rules restrict any use of the information to criminally investigate or prosecute any alcohol or drug abuse patient.[facility] HospitalIn the event this information is protected by the Federal Confidentiality of Alcohol and Drug Abuse Patient Records regulations: The Federal rules restrict any use of the information to criminally investigate or prosecute any alcohol or drug abuse patient.[facility] HospitalIn the event this information is protected by the Federal Confidentiality of Alcohol and Drug Abuse Patient Records regulations: The Federal rules restrict any use of the information to criminally investigate or prosecute any alcohol or drug abuse patient.[facility] HospitalIn the event this information is protected by the Federal Confidentiality of Alcohol and Drug Abuse Patient Records regulations: The Federal rules restrict any use of the information to criminally investigate or prosecute any alcohol or drug abuse patient.[facility] HospitalIn the event this information is protected by the Federal Confidentiality of Alcohol and Drug Abuse Patient Records regulations: The Federal rules restrict any use of the information to criminally investigate or prosecute any alcohol or drug abuse patient.[facility] HospitalIn the event this information is protected by the Federal Confidentiality of Alcohol and Drug Abuse Patient Records regulations: The Federal rules restrict any use of the information to criminally investigate or prosecute any alcohol or drug abuse patient.[facility] HospitalIn the event this information is protected by the Federal Confidentiality of Alcohol and Drug Abuse Patient Records regulations: The Federal rules restrict any use of the information to criminally investigate or prosecute any alcohol or drug abuse patient.[facility] HospitalIn the event this information is protected by the Federal Confidentiality of Alcohol and Drug Abuse Patient Records regulations: The Federal rules restrict any use of the information to criminally investigate or prosecute any alcohol or drug abuse patient.[facility] HospitalIn the event this information is protected by the Federal Confidentiality of Alcohol and Drug Abuse Patient Records regulations: The Federal rules restrict any use of the information to criminally investigate or prosecute any alcohol or drug abuse patient.[facility] Reason for Visit (unrecogniz ed section [...] section and content) DATE CREATED AUTHOR 02/03/2022 [facility] DATE CREATED AUTHOR AUTHOR'S ORGANIZ ATION 06/24/2022 [facility] DATE CREATED AUTHOR AUTHOR'S ORGANIZ ATION 09/15/2022 [employer] DATE CREATED AUTHOR AUTHOR'S ORGANIZ ATION 03/16/2023 [facility] DATE CREATED AUTHOR AUTHOR'S ORGANIZ ATION 06/15/2023 [facility] [place] DATE CREATED AUTHOR AUTHOR'S ORGANIZ ATION 07/11/2023 [facility] DATE CREATED AUTHOR AUTHOR'S ORGANIZ ATION 03/15/2024 [facility] DATE CREATED AUTHOR AUTHOR'S ORGANIZ ATION 04/15/2024 [facility] DATE CREATED AUTHOR AUTHOR'S ORGANIZ ATION 07/11/2024 [facility] DATE CREATED AUTHOR AUTHOR'S ORGANIZ ATION 07/26/2024 Martín Vasques [facility] DATE CREATED AUTHOR AUTHOR'S ORGANIZ ATION 09/05/2024 [facility] DATE CREATED AUTHOR AUTHOR'S ORGANIZ ATION 11/06/2024 [facility] DATE CREATED AUTHOR AUTHOR'S ORGANIZ ATION 11/11/2024 [facility]IC DATE CREATED AUTHOR AUTHOR'S ORGANIZ ATION 11/14/2024 [facility] Care Teams (unrecognized sec tion and content) Team Status: Inactive Member Role Status Dates Ibis Renteria PORTRAIT STUDIO PHOTOGRAPHER-C Primary Care Provider Activ e Guerita Davidson NP-C Attending Provider Active Team Status: Inactive Member Role Status Dates Ibis Renteria PORTRAIT STUDIO PHOTOGRAPHER-C Primary Care Provider Activ e Melodie Alcaraz MD Attending Provider Active Team Status: Inactive Member Role Status Dates Ibis Renteria PORTRAIT STUDIO PHOTOGRAPHER-C Primary Care Provider Activ e Melodie Alcaraz MD Attending Provider Active Álvaro Osborn MD Referring Provider Active Team Status: Active Member Role Status Dates Ibis Renteria PORTRAIT STUDIO PHOTOGRAPHER-C Primary Care Provider Activ e Team Status: Inactive Member Role Status Dates Ibis eRnteria , PORTRAIT STUDIO PHOTOGRAPHER-C Primary Care Provider Activ e Dyllan Pearce APRN Emergency Provider Active Team Status: Inactive Member Role Status Dates Ibis Renteria PORTRAIT STUDIO PHOTOGRAPHER-C Primary Care Provider Activ e Christina Perez APRN Attending Provider Active Team Status: Inactive Member Role Status Dates Ibis Renteria PORTRAIT STUDIO PHOTOGRAPHER-C Primary Care Provider Activ e Carlitos Nguyen Jr, DO Attending Provider Active Electric Organ Checker Relationship Specialty Start Date End Date Ibis Renteria CNP [address] [place] [id number] PCP - General Nurse Practitioner 07/09/23 Electric Organ Checker Relationship Specialty Start Date End Date Ibis Renteria CNP [address] [place] [address] PCP - General Nurse Practitioner 07/09/23 Team Status: Inactive Member Role Status Dates Ibis Renteria , PORTRAIT STUDIO PHOTOGRAPHER-C Primary Care Provider Activ venita Martino , DO Emergency Provider Active Team Status: Inactive Member Role Status Dates Ibis Renteria , PORTRAIT STUDIO PHOTOGRAPHER-C Primary Care Provider Activ venita Barnes , DO [facility] Attending Provider Active Electric Organ Checker Relationship Specialty Start Date End Date Jb Mandujano MD [address] [facility] [address] [place] [address] PCP - General Family Medicine 05/20/24 Osei Malik, DO [address] [place] [address] Referring Physician Obstetrics and Gynecology 06/05/24 Flori Gil PA [address] [place] [address] Physician Report Analyst Obstetrics and Gynecology 06/05/24 Electric Organ Checker Relationship Specialty Start Date End Date Jb Mandujano MD [address] [facility] [address] [place] [address] PCP - General Family Medicine 05/20/24 Osei Malik, DO [address] [place] [address] Referring Physician Obstetrics and Gynecology 06/05/24 Flori Gil PA [address] [place] [address] Physician Report Analyst Obstetrics and Gynecology 06/05/24 Electric Organ Checker Relationship Specialty Start Date End Date Jb Mandujano MD [address] [facility] [address] [place] [address] PCP - General Family Medicine 05/20/24 Osei Malik, DO [address] [place] [address] Referring Physician Obstetrics and Gynecology 06/05/24 Flori Gil PA [address] [place] [address] Physician Report Analyst Obstetrics and Gynecology 06/05/24 Electric Organ Checker Relationship Specialty Start Date End Date Jb Mandujano MD [address] [facility] [address] [place] [address] PCP - General Family Medicine 05/20/24 Osei Malik DO [facility] [place] [address] Referring Physician Obstetrics and Gynecology 06/05/24 Flori Gil PA [address] [place] [address] Physician Report Analyst Obstetrics and Gynecology 06/05/24 Electric Organ Checker Relationship Specialty Start Date End Date Jb Mandujano MD [address] [place] [address] [place] [address] PCP - General Family Medicine 05/20/24 Osei Malik DO [address] [place] [address] Referring Physician Obstetrics and Gynecology 06/05/24 Flori Gil PA [address] [place] [address] Physician Report Analyst Obstetrics and Gynecology 06/05/24 Electric Organ Checker Relationship Specialty Start Date End Date Jb Mandujano MD [address] [place] [address] PCP - General Family Medicine 05/20/24 Osei Malik, DO [address] [place] [address] Referring Physician Obstetrics and Gynecology 06/05/24 Flori Gil PA [address] [place] [address] Physician Report Analyst Obstetrics and Gynecology 06/05/24 Electric Organ Checker Relationship Specialty Start Date End Date Jb Mandujano MD [address] [facility] [address] [place] [address] PCP - General Family Medicine 05/20/24 Osei Malik, [address] [place] [address] Referring Physician Obstetrics and Gynecology 06/05/24 Flori Gil PA [address] [place] [address] Physician Report Analyst Obstetrics and Gynecology 06/05/24 Electric Organ Checker Relationship Specialty Start Date End Date Jb Mandujano MD [address] [place] [address] [place] [address] PCP - General Family Medicine 05/20/24 Osei Malik, DO [address] [place] [address] Referring Physician Obstetrics and Gynecology 06/05/24 Flori Gil PA [address] [place] [address] Physician Report Analyst Obstetrics and Gynecology 06/05/24 Electric Organ Checker Relationship Specialty Start Date End Date bJ Mandujano MD [address] [place] [address] [place] [address] PCP - General Family Medicine 05/20/24 Osei Malik, DO [address] [place] [address] Referring Physician Obstetrics and Gynecology 06/05/24 Flori Gil PA [address] [place] [address] Physician Report Analyst Obstetrics and Gynecology 06/05/24 Electric Organ Checker Relationship Specialty Start Date End Date Jb Mandujano MD [address] [email or web address] [address] [place] [address] PCP - General Family Medicine 05/20/24 Osei Malik, DO [address] [place] [address] Referring Physician Obstetrics and Gynecology 06/05/24 Flori Gil PA [address] [place] [address] Physician Report Analyst Obstetrics and Gynecology 06/05/24 Electric Organ Checker Relationship Specialty Start Date End Date Jb Mandujano MD [address] [facility] [[email or web address] [address] [place] [address] PCP - General Family Medicine 05/20/24 Electric Organ Checker Relationship Specialty Start Date End Date Jb Mandujano MD [address] [facility] [[email or web address] [address] [place] [address] PCP - General Family Medicine 05/20/24 Electric Organ Checker Relationship Specialty Start Date End Date Jb Mandujano MD [address] [place] [address] [place] [address] PCP - General Family Medicine 05/20/24 Electric Organ Checker Relationship Specialty Start Date End Date Jb Mandujano MD [address] [place] [address] [place] [address] PCP - General Family Medicine 05/20/24 Electric Organ Checker Relationship Specialty Start Date End Date Jb Mandujano MD [address] [place] [address] [place] [address] PCP - General Family Medicine 05/20/24 Osei Malik DO [address] [place] [address] Referring Physician Obstetrics and Gynecology 06/05/24 Flori Gil PA [address] [place] [address] Physician Report Analyst Obstetrics and Gynecology 06/05/24 Electric Organ Checker Relationship Specialty Start Date End Date Jb Mandujano MD [address] [facility] [[email or web address] [address] [place] [address] PCP - General Family Medicine 05/20/24 Osei Malik DO [address] [place] [address] Referring Physician Obstetrics and Gynecology 06/05/24 Flori Gil PA [address] [place] [address] Physician Report Analyst Obstetrics and Gynecology 06/05/24 Electric Organ Checker Relationship Specialty Start Date End Date Jb Mandujano MD [address] [place] [address] [place] [address] PCP - General Family Medicine 05/20/24 Osei Malik DO [address] [place] [address] Referring Physician Obstetrics and Gynecology 06/05/24 Flori Gil PA [address] [place] [address] Physician Report Analyst Obstetrics and Gynecology 06/05/24 Electric Organ Checker Relationship Specialty Start Date End Date Jb Mandujano MD [address] [place] [address] PCP - General Family Medicine 05/20/24 Osei Malik DO [address] [place] [address] Referring Physician Obstetrics and Gynecology 06/05/24 Flori Gil [facility] [place] [address] Physician Report Analyst Obstetrics and Gynecology 06/05/24 Electric Organ Checker Relationship Specialty Start Date End Date Ander Boateng MD [address] [place] [id number] PCP - General 11/30/17 Team Status: Inactive Member Role Status Dates Osei Malik DO Attending Provider Active Start : September 25, 2024 End: September 25, 2024 Electric Organ Checker Relationship Specialty Start Date End Date Jb Mandujano MD [address] [address] [place] [address] PCP - General Family Medicine 05/20/24 Osei Malik DO [address] [place] [address] Referring Physician Obstetrics and Gynecology 06/05/24 Flori Gil PA [address] [place] [address] Physician Report Analyst Obstetrics and Gynecology 06/05/24 Electric Organ Checker Relationship Specialty Start Date End Date Jb Mandujano MD [address] [place] [address] PCP - General Family Medicine 05/20/24 Osei Malik DO [address] [place] [address] Referring Physician Obstetrics and Gynecology 06/05/24 Flori Gil PA [address] [place] [address] Physician Report Analyst Obstetrics and Gynecology 06/05/24 Electric Organ Checker Relationship Specialty Start Date End Date Ander Boateng MD [address] [place] [id number] PCP - General 11/30/17 Electric Organ Checker Relationship Specialty Start Date End Date Jb Mandujano MD [address] [facility] [[email or web address] [address] [place] [address] PCP - General Family Medicine 05/20/24 Osei Malik DO [address] [place] [address] Referring Physician Obstetrics and Gynecology 06/05/24 Flori Gil PA [address] [place] [address] Physician Report Analyst Obstetrics and Gynecology 06/05/24 Electric Organ Checker Relationship Specialty Start Date End Date Jb Mandujano MD [address] [facility] [address] [place] [address] PCP - General Family Medicine 05/20/24 Osei Malik, [address] [place] [address] Referring Physician Obstetrics and Gynecology 06/05/24 Flori Gil PA [address] [place] [address] Physician Report Analyst Obstetrics and Gynecology 06/05/24 Electric Organ Checker Relationship Specialty Start Date End Date Jb Mandujano MD [address] [address] PCP - General Family Medicine 05/20/24 Osei Malik, [address] [place] [address] Referring Physician Obstetrics and Gynecology 06/05/24 Flori Gil PA [address] [place] [address] Physician Report Analyst Obstetrics and Gynecology 06/05/24 Electric Organ Checker Relationship Specialty Start Date End Date Ander Boateng MD [address] [place], [place] [id number] PCP - General 11/30/17 Electric Organ Checker Relationship Specialty Start Date End Date Ander Boateng MD [address] [place], [place] [id number] PCP - General 11/30/17 Electric Organ Checker Relationship Specialty Start Date End Date Ander Boateng MD [address] [place] [id number] PCP - General 11/30/17 Electric Organ Checker Relationship Specialty Start Date End Date Ander Boateng MD [address] [place] [id number] PCP - General 11/30/17 Electric Organ Checker Relationship Specialty Start Date End Date Jb Mandujano MD [address] [place] [address] PCP - General Family Medicine 05/20/24 Osei Malik DO [facility] [place] [address] Referring Physician Obstetrics and Gynecology 06/05/24 Flori Gil PA [address] [place] [address] Physician Report Analyst Obstetrics and Gynecology 06/05/24 Goals (unrecognized section [...] BE BASED ON THE PRIMARY CLINICAL RECORDS. [facility] provides no warranty or guarantee of the accuracy or completeness of information in this document."
[2024-11-19 17:18] VITALS: BP 129/68; PULSE 95
--- NOTE | 2024-11-19 17:48 | US_ITS ---
The [address] [address] Patient Name: CJ MAI MRN: [id number] date: 2000 Sex: F Assigned Patient Location: Current Patient Location: Accession/Order Number: [id number] Exam Date: 11/19/2024 19:19 Report Date: 11/19/2024 19:20 At the request of: SHELBI WILLIAM DO Procedure: US OB BPP w non-stress Exam: BPP. Reason for exam: Dichorionic diamniotic twin . COMPARISON: The pp 11/18/2024. TECHNIQUE: Transabdominal imaging of the gravid uterus was obtained. FINDINGS: Leaf Fat Scraper reports the BPP 8 out of 8 for both fetus A as well as fetus B. heart rate for fetus A is 127 bpm. heart rate for fetus B is 138 bpm. MVP for fetus A is 5.8 cm. MVP for fetus B is 9.4 cm. US/US OB BPP w non-stress Impression:BPP 8 out of 8 for both fetus A as well as fetus B. Impression dictated by: Parveen Wells Jr., D.O.11/19/2024 7:20 PM Dictation Location: [facility] Electronically authenticated by: [id number] Y Date: 11/19/2024 19:20
--- NOTE | 2024-11-19 17:48 | US_ITS ---
The [address] [address] Patient Name: CJ MAI MRN: [id number] date: 2000 Sex: F Assigned Patient Location: Current Patient Location: Accession/Order Number: [id number] Exam Date: 11/19/2024 19:16 Report Date: 11/19/2024 19:19 At the request of: SHELBI WILLIAM DO Procedure: US OB BPP w non-stress Exam: BPP. Reason for exam: Dichorionic diamniotic twin . COMPARISON: The pp 11/18/2024. TECHNIQUE: Transabdominal imaging of the gravid uterus was obtained. FINDINGS: Substation Operator Transforming reports the BPP 8 out of 8 for both fetus A as well as fetus B. heart rate for fetus A is 127 bpm. heart rate for fetus B is 138 bpm. MVP for fetus A is 5.8 cm. MVP for fetus B is 9.4 cm. US/US OB BPP w non-stress Impression:BPP 8 out of 8 for both fetus A as well as fetus B. Impression dictated by: Parveen Wells Jr., D.O.11/19/2024 7:19 PM Dictation Location: [facility] Electronically authenticated by: [id number] Y Date: 11/19/2024 19:19
--- NOTE | 2024-11-19 18:44 | PC.NURSE ---
MARY twin A 5.9x4.5 twin B 3.8x9.4
== END 2024-11-19 18:35 | disposition home or self-care (01) ==
LOC: US 00:28 → FBC 16:57
PROVIDERS: PCP Family Medicine; Visit Provider Obstetrics & Gynecology
DX: O30.042 Twin pregnancy, dichorionic/diamniotic, second trimester (principal)
CPT/HCPCS: 76818

== ENCOUNTER 2024-11-21 12:55 | Outpatient (OUT) | payer OTHER, MEDICAID, SELFPAY ==
[2024-11-21 13:23] VITALS: BP 121/56; PULSE 115
[2024-11-21] MEDS: BETAMETHASONE ACE/BETAMETHASONE SOD PHOS 30 MG/5 ML 12 MG IM (13:24)
--- NOTE | 2024-11-21 13:38 | PC.NURSE ---
1300: Patient arrives for celestone injection. To room 254. Patient has allergy of prednisolone listed and reaction of syncope. Upon questioning patient- she states it was a long time ago and I was also being diagnosed with POTS syndrome- so I don't know. Pharmacy notified and Priscila [facility] states to administer and keep 20 minutes. Patient informed of pharmacy consult with listed allergy and agrees to receive celestone. 1325: Celestone 12 mg given IM.1345: BP taken and patient asymptomatic. Discharged ambulatory. [place] SANTOS RN
[2024-11-21 13:49] VITALS: BP 121/67; PULSE 91
== END 2024-11-21 13:45 | disposition home or self-care (01) ==
LOC: FBCO 12:55 → FBC 12:56
PROVIDERS: PCP Family Medicine; Visit Provider Obstetrics & Gynecology
DX: O26.893 Other specified pregnancy related conditions, third trimester (principal)
CPT/HCPCS: 96372; J0702

== ENCOUNTER 2024-11-22 00:28 | Outpatient (OUT) | payer OTHER, MEDICAID, SELFPAY ==
--- OUTSIDE RECORDS SUMMARY | 2024-11-22 00:32 | XMS_ITS | CCD ---
Author Organization [facility] Care Team Providers Care Naval Designer Name Role Phone Unavailable Primary Care Provider Unavailsoniya e Christina Pearce Unavailable Ok Mckeon Unavailable Ibis Renteria Unavailable Unavailable Unavailable CARLOS Renteria Primary Care Provider MD Melodie Alcaraz Attending Provider MD Álvaro Osborn Referring Provider CARLOS Davidson Attending Provider [phone] JOHNNY Pearce Emergency Provider Link, Dr. Annalee [...] Myra Ibis GOODSON Primary Care Provider Myra, FASTENER SEWING MACHINE OPERATOR-C Ibis Winter Primary Care Provider DO Haris Martino Emergency Provider DO Nam Barnes Attending Provider [phone] JB MANDUJANO Primary Care Physician [phone] Rinkes, Celeste Admitting Unavailable Rinkes, Celeste Attending Unavailable Jocelin FELIX Attending Unavailable Mae, OPTOMETRIST/PRACTICE OWNER Krista L Attending Unavailable Mae, OPTOMETRIST/PRACTICE OWNER Krista L Attending Unavailable Unavailable Primary Care Provider Unavailabl e Rinkes, Celeste Attending Unavailable Rinkes, Celeste Admitting Unavailable Rinkes, Celeste Attending Unavailable Rinkes, Celeste Admitting Unavailable bJ Mandujano MD Primary Care Provider Osei Malik DO Unavailable Flori Sam Unavailable [facility], Nam Brewer Attending Unavailable [facility] Brewer Admitting Unavailable Ibis Renteria Primary Care Unavailable Rinradha, Celeste Attending Unavailable Rinkes, Celeset Admitting Unavailable SANTIAGO, AURORA Attending Unavailable SANTIAGO, AURORA Referring Unavailable SANTIAGO, AURORA Referring Unavailable SANTIAGO, AURORA Referring Unavailable SANTIAGO, AURORA Referring Unavailable NOBLE, JYOTI Attending Unavailable NOBLE, JYOTI Attending Unavailable JOIE SEAMAN Attending Unavailable NOBLE, JYOTI Attending Unavailable Kilo [facility] Primary Care Provider Helena DO, Osei [...] / oxyCODONE; Translations: [acetaminophen-o xycodone] Drug Allergy [facility] [place] Comment on above: no narcotics, GI ups et Chlorhexidine (1 source) Chlorhexidine; Translations: [chlorhexidine topical] Drug Allergy Itching [facility] Corticosteroids (1 source) predniSONE; Translations: [prednisone] Drug Allergy [facility] (15 sources) Morphinan opioid; Translations: [OPIOIDS - MORPHINE ANALOGUES] Propensity to adverse reactions to drug 01-26-20 Other: See Comments [facility] (20 sources) predniSONE; Translations: [predniSONE] Drug Allergy 01-26-20 Other: See Comments, Dizziness [facility] (20 sources) prednisoLONE; Translations: [prednisolone] Drug Allergy 01-11-20 22 GI Disturbance [facility] [employer] Other (15 sources) Fludrocortisone; Translations: [Florinef TABS] Drug Allergy N[facility] 320 DO Work Phone: (20 sources) Midodrine; Translations: [midodrine] Drug Allergy 08-13-20 23 GI bleeding [facility] (3 sources) Acetaminophen / oxyCODONE; Translations: [Percocet] Drug Allergy [facility] (4 sources) Chlorhexidine; Translations: [chlorhexidine topical] Drug Allergy Itching [facility] (7 sources) Acetaminophen / oxyCODONE; Translations: [acetaminophen-o xycodone] Drug Allergy 07-07-20 24 GI Disturbance [facility] Comment on above: no narcotics, GI ups et (20 sources) Acetaminophen / oxyCODONE; Translations: [OXYCODONE-ACETA MINOPHEN] Drug Allergy 02-26-20 24 [facility] (20 sources) Chlorhexidine; Translations: [CHLORHEXIDINE] Drug Allergy 02-21-20 23 Itching [facility] Work Phone: (20 sources) Fludrocortisone; Translations: [FLUDROCORTISONE ] Drug Allergy 07-26-20 22 Nausea [facility] (20 sources) Prednisone Allergy to substance 02-18-20 23 Dizziness [facility] (1 source) predniSONE Drug Allergy 06-08-20 23 [facility] Medications Current Medications Medication Drug Class(es) Dates Sig (Normalized) Sig (Original) [id number] 200 actuat albuterol 0.09 mg/actuat metered dose [...] this medication. 14 tablet 08/07/2024 08/14/2024 Active Chacra (No Known Home Meds) (1 source) Start: Chacra (No Known Home Meds) Active June 08, [...] Start: 08-01-2022 take 1 capsule by mo [facility] three times daily Droxidopa 100 MG [...] Facility US OB BPP W NON-STRESS on 11-19-[address] [address] Ultrasound Report Signed Patient: PRENATT,MADYSON M MR#: [id number] : 2000 Acct:[id number] Age/Sex: 23 / F ADM Date: 11/19/24 Loc: US Attending Dr: Osei Malik D.O. Ordering Physician: Osei Malik D.O. Date of Service: 11/19/24 Procedure(s): US OB BPP w non-stress Accession Number(s): [id number] cc: JB MANDUJANO ; Osei Malik D.O. [address] [address] Patient Name: MADYSON MAI MRN: [facility]:[id number] date: 2000 Sex: F Assigned Patient Location: US Current Patient Location: US Accession/Order Number: [id number] Exam Date: 11/19/2024 19:19 Report Date: 11/19/2024 19:20 At the request of: OSEI MALIK DO Procedure: US OB BPP w non-stress Exam: BPP. Reason for exam: Dichorionic diamniotic twin . COMPARISON: The 11/18/2024. TECHNIQUE: Transabdominal imaging of the gravid uterus was obtained. FINDINGS: [employer] reports the BPP 8 out of 8 for both fetus A as well as fetus B. heart rate for fetus A is 127 bpm. heart rate for fetus B is 138 bpm. MVP for fetus A is 5.8 cm. MVP for fetus B is 9.4 cm. US/US OB BPP w non-stress Impression:BPP 8 out of 8 for both fetus A as well as fetus B. Impression dictated by: Parveen Wells Jr., D.O.11/19/2024 7:20 PM Dictation Location: [place] [address] Electronically authenticated by: [id number] Y Date: 11/19/2024 19:20 Dictated By: Parveen Wells M.D. Signed By: 11/19/241922 DD/ 19 TD/TT: Hvac Mechanic: [facility] Radiology, Radiologi MD billy - 11/19/[address] [address] Ultrasound Report Signed Patient: MADYSON MAI MR#: [id number] : 2000 Acct:[id number] Age/Sex: 23 / F ADM Date: 11/19/24 Loc: US Attending Dr: Osei Malik D.O. Ordering Physician: Osei Malik D.O. Date of Service: 11/19/24 Procedure(s): US OB BPP w non-stress Accession Number(s): [id number] cc: JB MANDUJANO ; Osei Malik D.O. The [place] [id number] Patient Name: MADYSON MAI MRN: [facility]:[id number] date: 2000 Sex: F Assigned Patient Location: US Current Patient Location: US Accession/Order Number: [id number] Exam Date: 11/19/2024 19:19 Report Date: 11/19/2024 19:20 At the request of: OSEI MALIK DO Procedure: US OB BPP w non-stress Exam: BPP. Reason for exam: Dichorionic diamniotic twin . COMPARISON: The 11/18/2024. TECHNIQUE: Transabdominal imaging of the gravid uterus was obtained. FINDINGS: [employer] reports the BPP 8 out of 8 for both fetus A as well as fetus B. heart rate for fetus A is 127 bpm. heart rate for fetus B is 138 bpm. MVP for fetus A is 5.8 cm. MVP for fetus B is 9.4 cm. US/US OB BPP w non-stress Impression:BPP 8 out of 8 for both fetus A as well as fetus B. Impression dictated by: Parveen Wells Jr., D.O.11/19/2024 7:20 PM Dictation Location: [place] [address] Electronically authenticated by: [id number] Y Date: 11/19/2024 19:20 Dictated By: Parveen Wells M.D. Signed By: 11/19/241922 DD/ 19 TD/TT: Hvac Mechanic: [place] [address] Ultrasound Report Signed Patient: MADYSON MAI MR#: [id number] : 2000 Acct:[id number] Age/Sex: 23 / F ADM Date: 11/19/24 Loc: US Attending Dr: Osei Malik D.O. Ordering Physician: Osei Malik D.O. Date of Service: 11/19/24 Procedure(s): US OB BPP w non-stress Accession Number(s): [id number] cc: JB MANDUJANO ; Osei Malik D.O. [place] [address] Patient Name: MADYSON MAI MRN: [id number] date: 2000 Sex: F Assigned Patient Location: US Current Patient Location: US Accession/Order Number: [id number] Exam Date: 11/19/2024 19:16 Report Date: 11/19/2024 19:19 At the request of: OSEI MALIK DO Procedure: US OB BPP w non-stress Exam: BPP. Reason for exam: Dichorionic diamniotic twin . COMPARISON: The 11/18/2024. TECHNIQUE: Transabdominal imaging of the gravid uterus was obtained. FINDINGS: [employer] reports the BPP 8 out of 8 for both fetus A as well as fetus B. heart rate for fetus A is 127 bpm. heart rate for fetus B is 138 bpm. MVP for fetus A is 5.8 cm. MVP for fetus B is 9.4 cm. US/US OB BPP w non-stress Impression:BPP 8 out of 8 for both fetus A as well as fetus B. Impression dictated by: Parveen Wells Jr., D.O.11/19/2024 7:19 PM Dictation Location: [place] [address] Electronically authenticated by: [id number] Y Date: 11/19/2024 19:19 Dictated By: Parveen Wells M.D. Signed By: 11/19/241921 DD/ 18 TD/TT: Hvac Mechanic: [facility] Radiology, Ishaanogyelitza cervantes MD - 11/19/2024 [place] [address] Ultrasound Report Signed Patient: MADYSON MAI MR#: [id number] : 2000 Acct:[id number] Age/Sex: 23 / F ADM Date: 11/19/24 Loc: US Attending Dr: Osei aMlik D.O. Ordering Physician: Osei Malik D.O. Date of Service: 11/19/24 Procedure(s): US OB BPP w non-stress Accession Number(s): [id number] cc: JB MANDUJANO ; Osei Malik D.O. The [place] [address] Patient Name: MADYSON MAI MRN: [facility]:[id number] date: 2000 Sex: F Assigned Patient Location: US Current Patient Location: US Accession/Order Number: [id number] Exam Date: 11/19/2024 19:16 Report Date: 11/19/2024 19:19 At the request of: OSEI MALIK DO Procedure: US OB BPP w non-stress Exam: BPP. Reason for exam: Dichorionic diamniotic twin . COMPARISON: The 11/18/2024. TECHNIQUE: Transabdominal imaging of the gravid uterus was obtained. FINDINGS: [employer] reports the BPP 8 out of 8 for both fetus A as well as fetus B. heart rate for fetus A is 127 bpm. heart rate for fetus B is 138 bpm. MVP for fetus A is 5.8 cm. MVP for fetus B is 9.4 cm. US/US OB BPP w non-stress Impression:BPP 8 out of 8 for both fetus A as well as fetus B. Impression dictated by: Parveen Wells Jr., D.OJesika11/19/2024 7:19 PM Dictation Location: [place] [address] Electronically authenticated by: [id number] Y Date: 11/19/2024 19:19 Dictated By: Parveen Wells M.D. Signed By: 11/19/241921 DD/ 18 TD/TT: Hvac Mechanic: [place] [address] Ultrasound Report Signed Patient: MADYSON MAI MR#: [id number] : 2000 Acct:[id number] Age/Sex: 23 / F ADM Date: 11/12/24 Loc: US Attending Dr: Osei Malik D.O. Ordering Physician: Osei Malik D.O. Date of Service: 11/12/24 Procedure(s): US OB BPP w non-stress Accession Number(s): [id number] cc: JB MANDUJANO ; Osei Malik D.O. [place] [address] Patient Name: MADYSON MAI MRN: [id number] date: 2000 Sex: F Assigned Patient Location: [facility] Current Patient Location: US Accession/Order Number: [id number] Exam Date: 11/13/2024 12:22 Report Date: 11/13/2024 12:44 At the request of: OSEI MALIK DO Procedure: US OB BPP w non-stress BPP Reason for exam: Dichorionic diamniotic twin . COMPARISON: BDP 11/05/2024. TECHNIQUE: Transabdominal imaging of the gravid uterus was obtained. FINDINGS: [employer] reports a BPP of 8 out of 8 for both fetus A and fetus B. heart rate for fetus a is 148 bpm. heart rate for fetus B is 144 bpm. US/US OB BPP w non-stress Impression: BPP 8 out of 8 for both fetus a and fetus B. Correlation with NST is recommended. Impression dictated by: Parveen Wells Jr. DLolita11/13/2024 12:44 PM Dictation Location: [place] [address] Electronically authenticated by: [id number] Y Date: 11/13/2024 12:44 Dictated By: Parveen Wells M.D. Signed By: 11/19/24 1036 DD/ 1244 TD/TT: Hvac Mechanic: [facility] RadiologyIshaanogyelitza cervantes MD - 11/19/2024 [place] [address] Ultrasound Report Signed Patient: MADYSON MAI MR#: [id number] : 2000 Acct:[id number] Age/Sex: 23 / F ADM Date: 11/12/24 Loc: US Attending Dr: Osei Malik D.O. Ordering Physician: Osei Malik D.O. Date of Service: 11/12/24 Procedure(s): US OB BPP w non-stress Accession Number(s): [id number] cc: JB MANDUJANO ; Osei Malik D.O. The [address] [address] Patient Name: MADYSON MAI MRN: [facility]:[id number] date: 2000 Sex: F Assigned Patient Location: [facility] Current Patient Location: Accession/Order Number: [id number] Exam Date: 11/13/2024 12:22 Report Date: 11/13/2024 12:44 At the request of: OSEI MALIK DO Procedure: US OB BPP w non-stress BPP Reason for exam: Dichorionic diamniotic twin . COMPARISON: BDP 11/05/2024. TECHNIQUE: Transabdominal imaging of the gravid uterus was obtained. FINDINGS: [employer] reports a BPP of 8 out of [...] Wells Jr., D.O.11/13/2024 12:44 PM Dictation Location: [facility] Electronically authenticated by: [id number] Y Date: 11/13/2024 12:44 Dictated By: Parveen Wells M.D. Signed By: 11/19/24 1036 DD/ 1244 TD/TT: Hvac Mechanic: [place] [address] Ultrasound Report Signed Patient: MADYSON MAI MR#: [id number] : 2000 Acct:[id number] Age/Sex: 23 / F ADM Date: Loc: [facility] 255-[address]: Osei Malik D.O. Ordering Physician: Osei Malik D.O. Date of Service: 11/17/24 Procedure(s): US OB BPP w non-stress Accession Number(s): [id number] cc: JB MANDUJANO ; Osei Malik D.O. [place] [address] Patient Name: MADYSON MAI MRN: [id number]:[id number] date: 2000 Sex: F Assigned Patient Location: [facility] Current Patient Location: Accession/Order Number: [id number] Exam Date: 11/18/2024 11:00 Report Date: 11/18/2024 11:08 At the request of: OSEI MALIK DO Procedure: US OB BPP w non-stress CLINICAL INFORMATION: Twin . Patient fell today. BIOPHYSICAL PROFILE - FETUS A: COMPARISON: 11/12/2024 TECHNIQUE: There is a twin with fetus A on the left in cephalic presentation. The reported gestational age is 34 weeks 2 days. The heart rate uhycziey143 beats per minute. FINDINGS: TONE: 1 or [...] 34 weeks 2 days. The heart rate omcjclzq092 beats per minute. FINDINGS: TONE: 1 or [...] Camilla Damon M.D.11/18/2024 11:08 AM Dictation Location: [place] [address] Electronically authenticated by: [id number] Y Date: 11/18/2024 11:08 Dictated By: Camilla Damon M.D. Signed By: 11/19/24 1034 DD/ 1108 TD/TT: Hvac Mechanic: [facility] Radiology, Radiologi MD billy - 11/19/2024 [place] [address] Ultrasound Report Signed Patient: MADYSON MAI MR#: [id number] : 2000 Acct:[id number] Age/Sex: 23 / F ADM Date: Loc: [facility] 255-[address]: Osei Malik D.O. Ordering Physician: Osei Malik D.O. Date of Service: 11/17/24 Procedure(s): US OB BPP w non-stress Accession Number(s): [id number] cc: JB MANDUJANO ; Osei Malik D.O. [place] [address] Patient Name: MADYSON MAI MRN: [facility]:[id number] date: 2000 Sex: F Assigned Patient Location: [facility] Current Patient Location: Accession/Order Number: [id number] Exam Date: 11/18/2024 11:00 Report Date: 11/18/2024 11:08 At the request of: OSEI MALIK DO Procedure: US OB BPP w non-stress CLINICAL INFORMATION: Twin . Patient fell today. BIOPHYSICAL PROFILE - FETUS A: COMPARISON: 11/12/2024 TECHNIQUE: There is a twin with fetus A on the left in cephalic presentation. The reported gestational age is 34 weeks 2 days. The heart rate liblzthq924 beats per minute. FINDINGS: TONE: 1 or [...] is in normal range. Total score: 8/8 US/ OB BPP w non-stress IMPRESSION: NORMAL BIOPHYSICAL PROFILE FOR FETUS A. BIOPHYSICAL PROFILE - FETUS B: Comparison: 11/12/2024 Fetus B is on the right and also in cephalic presentation. The reported age is 34 weeks 2 days. The heart rate jocvniky227 beats per minute. FINDINGS: TONE: 1 or [...] Camilla Damon M.D.11/18/2024 11:08 AM Dictation Location: [place] [address] Electronically authenticated by: [id number] Y Date: 11/18/2024 11:08 Dictated By: Camilla Damon M.D. Signed By: 11/19/24 1034 DD/ 1108 TD/TT: Hvac Mechanic: [facility] Radiology Study observation (narrative) [facility] Study observation (narrative) [facility] US OB BPP W NON-STRESS Ordered By: Radiologist Radiology on 11-19-2024 [facility] Healthcare Work Phone: [facility] Healthcare Work Phone: [facility] Healthcare Work Phone: [facility] [employer] Work Phone: No Panel Informationon 11-18 Radiology Study observation (narrative) [facility] US OB BPP W NON-STRESS on 11-18-2024 [place] [address] Ultrasound Report Signed Patient: MADYSON MAI MR#: [id number] : 2000 Acct:[id number] Age/Sex: 23 / F ADM Date: Loc: [facility] 255-[address]: Osei Malik D.O. Ordering Physician: Osei Malik D.O. Date of Service: 11/17/24 Procedure(s): US OB BPP w non-stress Accession Number(s): [id number] cc: JB MANDUJANO ; Osei Malik D.O. The [place] [address] Patient Name: MADYSON MAI MRN: [facility]:[id number] date: 2000 Sex: F Assigned Patient Location: [facility] Current Patient Location: [facility] Accession/Order Number: [id number] Exam Date: 11/18/2024 11:00 Report Date: 11/18/2024 11:08 At the request of: OSEI MALIK DO Procedure: US OB BPP w non-stress CLINICAL INFORMATION: Twin . Patient fell today. BIOPHYSICAL PROFILE - FETUS A: COMPARISON: 11/12/2024 TECHNIQUE: There is a twin with fetus A on the left in cephalic presentation. The reported gestational age is 34 weeks 2 days. The heart rate rrekagpy720 beats per minute. FINDINGS: TONE: 1 or [...] 34 weeks 2 days. The heart rate beats per minute. FINDINGS: TONE: 1 or [...] Camilla Damon M.D.11/18/2024 11:08 AM Dictation Location: [facility] Electronically authenticated by: [id number] Y Date: 11/18/2024 11:08 Dictated By: Camilla Damon M.D. Signed By: 11/18/24 1111 DD/ 1108 TD/TT: Hvac Mechanic: [facility] Radiology, Radiologi MD billy - 11/18/2024 The [place] [id number] Ultrasound Report Signed Patient: MADYSON MAI MR#: [id number] : 2000 Acct:[id number] Age/Sex: 23 / F ADM Date: Loc: [facility] 255-[address]: Osei Malik D.O. Ordering Physician: Osei Malik D.O. Date of Service: 11/17/24 Procedure(s): US OB BPP w non-stress Accession Number(s): [id number] cc: JB MANDUJANO ; Osei Malik D.O. The [place] [address] Patient Name: MADYSON MAI MRN: [facility]:[id number] date: 2000 Sex: F Assigned Patient Location: [facility] Current Patient Location: [facility] Accession/Order Number: [id number] Exam Date: 11/18/2024 11:00 Report Date: 11/18/2024 11:08 At the request of: OSEI MALIK DO Procedure: US OB BPP w non-stress CLINICAL INFORMATION: Twin . Patient fell today. BIOPHYSICAL PROFILE - FETUS A: COMPARISON: 11/12/2024 TECHNIQUE: There is a twin with fetus A on the left in cephalic presentation. The reported gestational age is 34 weeks 2 days. The heart rate jouiarfb141 beats per minute. FINDINGS: TONE: 1 or [...] 34 weeks 2 days. The heart rate cuppmhti808 beats per minute. FINDINGS: TONE: 1 or [...] Camilla Damon M.D.11/18/2024 11:08 AM Dictation Location: [place] [address] Electronically authenticated by: [id number] Y Date: 11/18/2024 11:08 Dictated By: Camilla Damon M.D. Signed By: 11/18/24 1111 DD/ 1108 TD/TT: Hvac Mechanic: [employer] OB BPP W NON-STRESS Ordered By: Radiologist Radiology on 11-18-2024 [facility] [employer] Work Phone: US OB PLACENTAon 11-17-2024 [place] [address] Ultrasound Report Signed Patient: MADYSON MAI MR#: [id number] : 2000 Acct:[id number] Age/Sex: 23 / F ADM Date: Loc: [facility] 255- Attending Dr: Osei Malik D.O. Ordering Physician: Osei Malik D.O. Date of Service: 11/17/24 Procedure(s): US OB placenta Accession Number(s): [id number] cc: JB MANDUJAON ; Osei Malik D.O. [place] [id number] Patient Name: MADYSON MAI MRN: [id number]:[id number] date: 2000 Sex: F Assigned Patient Location: [facility] Current Patient Location: [facility] Accession/Order Number: [id number] Exam Date: 11/17/2024 18:58 Report Date: 11/17/2024 [...] Good Ho M.D.11/17/2024 7:04 PM Dictation Location: [place] [address] Electronically authenticated by: [id number] Y Date: 11/17/2024 19:04 Dictated By: Good Ho M.D. Signed By: 11/17/241905 DD/ 03 TD/TT: Hvac Mechanic: [facility] Radiology, Radiologi MD billy - 11/17/2024 [place] [address] Ultrasound Report Signed Patient: MADYSON MAI MR#: [id number] : 2000 Acct:[id number] Age/Sex: 23 / F ADM Date: Loc: [facility] 255-[address]: Osei Malik D.O. Ordering Physician: Osei Malik D.O. Date of Service: 11/17/24 Procedure(s): US OB placenta Accession Number(s): [id number] cc: JB MANDUJANO ; Osei Malik D.O. The [place] [id number] Patient Name: MADYSON MAI MRN: [id number]:[id number] date: 2000 Sex: F Assigned Patient Location: [facility] Current Patient Location: [facility] Accession/Order Number: [id number] Exam Date: 11/17/2024 18:58 Report Date: 11/17/2024 [...] Good Ho M.D.11/17/2024 7:04 PM Dictation Location: [place] [address] Electronically authenticated by: [id number] Y Date: 11/17/2024 19:04 Dictated By: Good Ho M.D. Signed By: 11/17/241905 DD/ 03 TD/TT: Hvac Mechanic: [facility] Radiology Study observation (narrative) [facility] US OB PLACENTAOrdered By: diologmarilu Radiology on 11-17-2024 [facility] Work Phone: No Panel Informationon 11-13 Radiology Study observation (narrative) [facility] US OB BPP W NON-STRESS on 11-13-2024 [place] [address] Ultrasound Report Signed Patient: MADYSON MAI MR#: [id number] : 2000 Acct:[id number] Age/Sex: 23 / F ADM Date: 11/12/24 Loc: US Attending Dr: Osei Malik D.O. Ordering Physician: Osei Malik D.O. Date of Service: 11/12/24 Procedure(s): US OB BPP w non-stress Accession Number(s): [id number] cc: JB MANDUJANO ; Osei Malik D.O. The [address] [address] Patient Name: MADYSON MAI MRN: [facility]:[id number] date: 2000 Sex: F Assigned Patient Location: [facility] Current Patient Location: LAB Accession/Order Number: [id number] Exam Date: 11/13/2024 12:22 Report Date: 11/13/2024 12:44 At the request of: OSEI MALIK DO Procedure: US OB BPP w non-stress BPP Reason for exam: Dichorionic diamniotic twin . COMPARISON: BDP 11/05/2024. TECHNIQUE: Transabdominal imaging of the gravid uterus was obtained. FINDINGS: [employer] reports a BPP of 8 out of [...] Wells Jr., D.O.11/13/2024 12:44 PM Dictation Location: [place] [address] Electronically authenticated by: [id number] Y Date: 11/13/2024 12:44 Dictated By: Parveen Wells M.D. Signed By: 11/13/24 1246 DD/ 1244 TD/TT: Hvac Mechanic: [facility] Radiology, Radiologyelitza cervantes MD - 11/13/[address] [address] Ultrasound Report Signed Patient: MADYSON MAI MR#: [id number] : 2000 Acct:[id number] Age/Sex: 23 / F ADM Date: 11/12/24 Loc: US Attending Dr: Osei Malik D.O. Ordering Physician: Osei Malik D.O. Date of Service: 11/12/24 Procedure(s): US OB BPP w non-stress Accession Number(s): [id number] cc: JB MANDUJANO ; sOei Malik D.O. [address] [address] Patient Name: MADYSON MAI MRN: [id number]:[id number] date: 2000 Sex: F Assigned Patient Location: [facility] Current Patient Location: LAB Accession/Order Number: [id number] Exam Date: 11/13/2024 12:22 Report Date: 11/13/2024 12:44 At the request of: OSEI MALIK DO Procedure: US OB BPP w non-stress BPP Reason for exam: Dichorionic diamniotic twin . COMPARISON: BDP 11/05/2024. TECHNIQUE: Transabdominal imaging of the gravid uterus was obtained. FINDINGS: [employer] reports a BPP of 8 out of [...] Wells Jr., D.O.11/13/2024 12:44 PM Dictation Location: [place] [address] Electronically authenticated by: [id number] Y Date: 11/13/2024 12:44 Dictated By: Parveen Wells M.D. Signed By: 11/13/24 1246 DD/ 1244 TD/TT: Hvac Mechanic: [facility] US OB BPP W NON-STRESS Ordered By: Radiologist Radiology on 11-13-2024 [facility] Work Phone: Urinalysis macro (dipstick) panel (U)on 11-10-2024 Bilirubin, UA Negative Negative - 4(70) +++ mg/dL [facility] Blood, UA Negative Negative - 50 Vasu/mcL [facility] Clarity, UA Clear [facility] Color, UA Yellow [facility] Glucose, UA Positive Negative - 1999(110) ++++ mg/dL [facility] Comment on above: 100mg/dL Interpretation and review of laboratory results Abnormal [facility] Ketones, UA Negative Negative - 160(16) ++++ mg/dL [facility] Leukocytes, UA Positive Negative - 500+++ Conrad/mcL [facility] Comment on above: small Nitrite, UA Negative Negative - Positive [facility] pH, UA 7 5 - 9 [facility] Protein, UA Trace Negative - 2000(20) ++++ mg/dL [facility] Spec Grav, UA 1.02 1 - 1.03 [facility] Urobilinogen, UA 0.2 0.2 - 12 mg/dL [facility] ALL CBC WITH AUTO DIFFon BASOPHILS ABSOLUTE AUTO 0 [facility] Basophils/100 WBC (Bld) 0.3 % 0.2 - 2.0 % [facility] Eosinophils/100 WBC (Bld) 0.6 % Low 0.9 - 7.0 % [facility] Erythrocyte distribution width (RBC) [Ratio] 13.2 % 11.0 - 15.0 % [facility] Hematocrit (Bld) [Volume fraction] 38.7 % 36.0 - 48.0 % [facility] Hemoglobin (Bld) [Mass/Vol] 12.9 g/dL 12.0 - 16.0 g/dL [facility] IMMATURE GRANULOCYTES ABS AUTO 0.05 High [facility] Immature granulocytes/100 WBC (Bld) 0.5 % 0.0 - 0.5 % [facility] Interpretation and review of laboratory results Abnormal [facility] LYMPHOCYTES ABSOLUTE AUTO 1.4 [facility] Lymphocytes/100 WBC (Bld) 13.2 % Low 20.5 - 60.0 % [facility] MCH (RBC) [Entitic mass] 28.4 pg 26.7 - 34.0 pg [facility] MCHC (RBC) [Mass/Vol] 33.3 g/dL 29.9 - 35.2 g/dL [facility] MCV (RBC) [Entitic vol] 85.2 fL 81.0 - 99.0 fL [facility] MONOCYTES ABSOLUTE AUTO 0.6 [facility] Monocytes/100 WBC (Bld) 5.7 % 1.7 - 12.0 % [facility] NEUTROPHILS ABSOLUTE AUTO 8.4 High [facility] Neutrophils/100 WBC (Bld) 79.7 % High 43.0 - 75.0 % [facility] Platelet mean volume (Bld) [Entitic vol] 10.3 fL 9.5 - 13.5 fL [facility] TBH EO # 0.1 [facility] TB PLT 151 [facility] TB RBC 4.54 [facility] WBC 10.5 [facility] No Panel InformationOrdered By: Radiologist Radiology on 11-06-2024 [facility] Work Phone: No Panel Informationon 11-06 Radiology Study observation (narrative) [facility] US OB BPP W NON-STRESS on 11-06-2024 [place] [address] Ultrasound Report Signed Patient: MADYSON MAI MR#: [id number] : 2000 Acct:[id number] Age/Sex: 23 / F ADM Date: 11/05/24 Loc: US Attending Dr: Osei Malik D.O. Ordering Physician: Osei Malik D.O. Date of Service: 11/05/24 Procedure(s): US OB BPP w non-stress Accession Number(s): [id number] cc: JB MANDUJANO ; Osei Malik D.O. The [place] [id number] Patient Name: MADYSON MAI MRN: [id number] date: 2000 Sex: F Assigned Patient Location: Current Patient Location: US Accession/Order Number: [id number] Exam Date: 11/05/2024 17:46 Report Date: 11/06/2024 [...] Signed By: 11/06/24 0748 DD/ 0745 TD/TT: Hvac Mechanic: [facility] Radiology, Radiologi MD billy - 11/06/2024 [place] [address] Ultrasound Report Signed Patient: MADYSON MAI MR#: [id number] : 2000 Acct:[id number] Age/Sex: 23 / F ADM Date: 11/05/24 Loc: US Attending Dr: Osei Malik D.O. Ordering Physician: Osei Malik D.O. Date of Service: 11/05/24 Procedure(s): US OB BPP w non-stress Accession Number(s): [id number] cc: JB MANDUJANO ; Osei Malik D.O. The [place] [address] Patient Name: MADYSON MAI MRN: [facility]:[id number] date: 2000 Sex: F Assigned Patient Location: US Current Patient Location: US Accession/Order Number: [id number] Exam Date: 11/05/2024 17:46 Report Date: 11/06/2024 [...] Small M.D. Signed By: 11/06/2448 DD/ TD/TT: Hvac Mechanic: [place] [address] Ultrasound Report Signed Patient: MADYSON MAI MR#: [id number] : 2000 Acct:[id number] Age/Sex: 23 / F ADM Date: 11/05/24 Loc: US Attending Dr: Osei Malik D.O. Ordering Physician: Osei Malik D.O. Date of Service: 11/05/24 Procedure(s): US OB BPP w non-stress Accession Number(s): [id number] cc: JB MANDUJANO ; Osei Malik D.O. [place] [id number] Patient Name: MADYSON MAI MRN: [id number] date: 2000 Sex: F Assigned Patient Location: US Current Patient Location: US Accession/Order Number: [id number] Exam Date: 11/05/2024 17:46 Report Date: 11/06/2024 [...] M.D. Signed By: 11/06/24 0748 DD/ TD/TT: Hvac Mechanic: [facility] Radiology, Radiologi MD billy - 11/06/2024 [place] [address] Ultrasound Report Signed Patient: MADYSON MAI MR#: [id number] : 2000 Acct:[id number] Age/Sex: 23 / F ADM Date: 11/05/24 Loc: US Attending Dr: Osei Malik D.O. Ordering Physician: Osei Malik D.O. Date of Service: 11/05/24 Procedure(s): US OB BPP w non-stress Accession Number(s): [id number] cc: JB MANDUJANO ; Osei Malik D.O. The [place] [phone] [phone] Patient Name: MADYSON MAI MRN: [facility]:[id number] date: 2000 Sex: F Assigned Patient Location: US Current Patient Location: US Accession/Order Number: [id number] Exam Date: 11/05/2024 17:46 Report Date: 11/06/2024 [...] Signed By: 11/06/24 0748 DD/ 0745 TD/TT: Hvac Mechanic: [facility] [employer] No Panel InformationOrdered By: Radiologist Radiology on 10-30-2024 [facility] Work Phone: No Panel Informationon 10-30 Radiology Study observation (narrative) [facility] US OB BPP W NON-STRESS on 10-30-[address] [address] Ultrasound Report Signed Patient: MADYSON MAI MR#: [id number] : 2000 Acct:[id number] Age/Sex: 23 / F ADM Date: 10/29/24 Loc: US Attending Dr: Osei Malik D.O. Ordering Physician: Osei Malik D.O. Date of Service: 10/29/24 Procedure(s): US OB BPP w non-stress Accession Number(s): [id number] cc: JB MANDUJANO ; Osei Malik D.O. The [place] [id number] Patient Name: MADYSON MAI MRN: [facility]:[id number] date: 2000 Sex: F Assigned Patient Location: [facility] Current Patient Location: Accession/Order Number: [id number] Exam Date: 10/29/2024 17:40 Report Date: 10/30/2024 [...] M.D. Signed By: 10/30/2433 DD/ 9 TD/TT: Hvac Mechanic: [facility] Radiology, Radiologi MD billy - 10/30/[address] [address] Ultrasound Report Signed Patient: MADYSON MAI MR#: [id number] : 2000 Acct:[id number] Age/Sex: 23 / F ADM Date: 10/29/24 Loc: US Attending Dr: Osei Malik D.O. Ordering Physician: Osei Malik D.O. Date of Service: 10/29/24 Procedure(s): US OB BPP w non-stress Accession Number(s): [id number] cc: JB MANDUJANO ; Osei Malik D.O. [address] [address] Patient Name: MADYSON MAI MRN: [facility]:[id number] date: 2000 Sex: F Assigned Patient Location: [facility] Current Patient Location: Accession/Order Number: [id number] Exam Date: 10/29/2024 17:40 Report Date: 10/30/2024 [...] M.D. Signed By: 10/30/2433 DD/ 9 TD/TT: Hvac Mechanic: [facility] [address] [place] [address] Ultrasound Report Signed Patient: MADYSON MAI MR#: [id number] : 2000 Acct:[id number] Age/Sex: 23 / F ADM Date: 10/29/24 Loc: US Attending Dr: Osei Malik D.O. Ordering Physician: Osei Malik D.O. Date of Service: 10/29/24 Procedure(s): US OB BPP w non-stress Accession Number(s): [id number] cc: JB MANDUJANO ; Osei Malik D.O. [place] [address] Patient Name: MADYSON MAI MRN: [id number] date: 2000 Sex: F Assigned Patient Location: [facility] Current Patient Location: Accession/Order Number: [id number] Exam Date: 10/29/2024 17:40 Report Date: 10/30/2024 [...] M.D. Signed By: 10/30/24 0733 DD/ TD/TT: Hvac Mechanic: [facility] Radiology, Radiologyelitza cervantes MD - 10/30/2024 The [place] [id number] Ultrasound Report Signed Patient: MADYSON MAI MR#: [id number] : 2000 Acct:[id number] Age/Sex: 23 / F ADM Date: 10/29/24 Loc: US Attending Dr: Osei Malik D.O. Ordering Physician: Osei Malik D.O. Date of Service: 10/29/24 Procedure(s): US OB BPP w non-stress Accession Number(s): [id number] cc: JB MANDUJANO ; Osei Malik D.O. [address] [address] Patient Name: MADYSON MAI MRN: [facility]:[id number] date: 2000 Sex: F Assigned Patient Location: [facility] Current Patient Location: Accession/Order Number: [id number] Exam Date: 10/29/2024 17:40 Report Date: 10/30/2024 [...] M.D. Signed By: 10/30/2433 DD/ 9 TD/TT: Hvac Mechanic: [facility] Urinalysis macro (dipstick) panel (U)on 10-29-2024 Bilirubin, UA Negative Negative - 4(70) +++ mg/dL [facility] Blood, UA Negative Negative - 50 Vasu/mcL [facility] Clarity, UA Clear [facility] Color, UA Yellow [facility] Glucose, UA Positive Negative - 2000(110) ++++ mg/dL [facility] Comment on above: 100 MG Interpretation and review of laboratory results Abnormal [facility] Ketones, UA Negative Negative - 160(16) ++++ mg/dL [facility] Leukocytes, UA Positive Negative - 500+++ Conrad/mcL [facility] Comment on above: SMALL Nitrite, UA Negative Negative - Positive [facility] pH, UA 7 5 - 9 [facility] Protein, UA Negative Negative - 2000(20) ++++ mg/dL [facility] Spec Grav, UA 1.01 1 - 1.03 [facility] Urobilinogen, UA 0.2 0.2 - 12 mg/dL [facility] CTA Chest vessels WO and W c ontrast Luiz 10-27-[address] [place] [address] Scan Report Signed Patient: MADYSON MAI MR#: [id number] : 2000 Acct:[id number] Age/Sex: 23 / F ADM Date: Loc: [facility] 251-[address]: Osei Malik D.O. Ordering Physician: Osei Malik D.O. Date of Service: 10/27/24 Procedure(s): CT angio chest Accession Number(s): [id number] cc: JB MANDUJANO [place] [id number] Patient Name: MADYSON MAI MRN: [id number] date: 2000 Sex: F Assigned Patient Location: [facility] Current Patient Location: [facility] Accession/Order Number: [id number] Exam Date: 10/27/2024 15:20 Report Date: 10/27/2024 [...] Signed By: 10/27/24 1556 DD/ 1554 TD/TT: Hvac Mechanic: [facility] Radiology, Radiologi MD billy - 10/27/2024 [place] [address] CT Scan Report Signed Patient: MADYSON MAI MR#: [id number] : 2000 Acct:[id number] Age/Sex: 23 / F ADM Date: Loc: [facility] 251-[address]: Osei Malik D.O. Ordering Physician: Osei Malik D.O. Date of Service: 10/27/24 Procedure(s): CT angio chest Accession Number(s): [id number] cc: JB MANDUJANO [address] [address] Patient Name: MADYSON MAI MRN: [id number]:[id number] date: 2000 Sex: F Assigned Patient Location: [facility] Current Patient Location: [facility] Accession/Order Number: [id number] Exam Date: 10/27/2024 15:20 Report Date: 10/27/2024 [...] By: Chan Small M.D. Signed By: 10/27/24 1559 DD/ 1552 TD/TT: Hvac Mechanic: [facility] [employer] Radiology Study observation (narrative) [facility] CTA Chest vessels WO and W c ontrast IVOrdered By: Radiologist Radiology on 10-27-2024 [facility] [employer] Work Phone: ECG 12-LEADon 10-27-2024 [place] [address] Electrocardiograph Report Signed Patient: MADYSON MAI MR#: [id number] : 2000 Acct:[id number] Age/Sex: 23 / F ADM Date: Loc: [place] [address]: Osei Malik D.O. Ordering Physician: Osei Malik D.O. Date of Service: 10/27/24 Procedure(s): ECG 12 lead Accession Number(s): [id number] cc: [facility] Test Date: 2024-10-27 Pat Name: MADYSON MAI Department: Room: [facility] Gender: Female Building Superintendent: : 2000 Requested By: OSEI MALIK Order Number: [id number] Reading MD: SURYA MEJÍA Measurements Intervals [place] Rate: 98 P: 36 WA: 153 QRS: 19 QRSD: 98 T: 28 QT: 353 QTc: 451 Interpretive Statements SINUS RHYTHM No previous ECG available for comparison Electronically Signed On 10-27-2024 20:49:34 EST by SURYA MEJÍA Dictated By: Surya Mejía D.O. Signed By: 10/27/24 204 DD/ 1555 TD/TT: Hvac Mechanic: [facility] Radiology, Radiologi MD billy - 10/27/2024 [place] [address] Electrocardiograph Report Signed Patient: MADYSON MAI MR#: [id number] : 2000 Acct:[id number] Age/Sex: 23 / F ADM Date: Loc: [place] [address]: Osei Malik D.O. Ordering Physician: Osei Malik D.O. 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 Signed By: 10/27/242048 DD/ 54 TD/TT: Hvac Mechanic: [facility] Radiology Study observation (narrative) [facility] ECG 12-LEADOrdered By: Radio logist Radiology on 10-27-2024 [facility] Work Phone: [facility] UA (CLEAN/CATCH) TENNIS NET MAKER/YOUSIF RO IF IND.on 10-27-2024 BILIRUBIN URINE Negative NEGATIVE [facility] Healthcare BLOOD URINE Negative NEGATIVE [facility] Clarity (U) CLEAR CLEAR [facility] Color (U) LT. YELLOW YELLOW [facility] GLUCOSE URINE UA 500 mg/dL Abnormal NEGATIVE [facility] Interpretation and review of laboratory results Abnormal [facility] Ketones Ql (U) Negative NEGATIVE mg/dL [facility] Leukocyte esterase Test strip Ql (U) SMALL Abnormal NEGATIVE [facility] NITRITE URINE Negative NEGATIVE [facility] pH (U) 6.5 [pH] 5.0 - 9.0 [facility] PROTEIN URINE Negative NEG/TRACE mg/dL [facility] SPECIFIC GRAVITY URINE 1.020 1.005 - 1.025 [facility] URINE MICROSCOPIC INDICATED YES [facility] UROBILINOGEN URINE 1.0 EU/dL 0.2 - 1.0 EU/dL [facility] No Panel InformationOrdered By: Radiologist Radiology on 10-23-2024 [facility] Work Phone: No Panel Informationon 10-23 Radiology Study observation (narrative) [facility] US OB BPP W NON-STRESS on 10-23-[address] [address] Ultrasound Report Signed Patient: MADYSON MAI MR#: [id number] : 2000 Acct:[id number] Age/Sex: 23 / F ADM Date: 10/22/24 Loc: US Attending Dr: Osei Malik D.O. Ordering Physician: Osei Malik D.O. Date of Service: 10/22/24 Procedure(s): US OB BPP w non-stress Accession Number(s): [id number] cc: JB MANDUJANO ; Osei Malik D.O. The [address] [address] Patient Name: MADYSON MAI MRN: [facility]:[id number] date: 2000 Sex: F Assigned Patient Location: [facility] Current Patient Location: Accession/Order Number: [id number] Exam Date: 10/22/2024 17:05 Report Date: 10/23/2024 [...] Signed By: 10/23/24 0745 DD/ 0742 TD/TT: Hvac Mechanic: [facility] Radiology, Radiologi MD billy - 10/23/[address] [address] Ultrasound Report Signed Patient: MADYSON MAI MR#: [id number] : 2000 Acct:[id number] Age/Sex: 23 / F ADM Date: 10/22/24 Loc: US Attending Dr: Osei Malik D.O. Ordering Physician: Osei Malik D.O. Date of Service: 10/22/24 Procedure(s): US OB BPP w non-stress Accession Number(s): [id number] cc: JB MANDUJANO ; Osei Malik D.O. [place] [address] Patient Name: MADYSON MAI MRN: [id number] date: 2000 Sex: F Assigned Patient Location: [facility] Current Patient Location: Accession/Order Number: [id number] Exam Date: 10/22/2024 17:05 Report Date: 10/23/2024 [...] M.D. Signed By: 10/23/24 0745 DD/ TD/TT: Hvac Mechanic: [place] [address] Ultrasound Report Signed Patient: MADYSON MAI MR#: [id number] : 2000 Acct:[id number] Age/Sex: 23 / F ADM Date: 10/22/24 Loc: US Attending Dr: Osei Malik D.O. Ordering Physician: Osei Malik D.O. Date of Service: 10/22/24 Procedure(s): US OB BPP w non-stress Accession Number(s): [id number] cc: JB MANDUJANO ; Osei Malik D.O. [place] [id number] Patient Name: MADYSON MAI MRN: [facility]:[id number] date: 2000 Sex: F Assigned Patient Location: [facility] Current Patient Location: Accession/Order Number: [id number] Exam Date: 10/22/2024 17:05 Report Date: 10/23/2024 [...] Signed By: 10/23/24 0745 DD/ 0742 TD/TT: Hvac Mechanic: [facility] Radiology, Radiologi MD billy - 10/23/[address] [address] Ultrasound Report Signed Patient: MADYSON MAI MR#: [id number] : 2000 Acct:[id number] Age/Sex: 23 / F ADM Date: 10/22/24 Loc: US Attending Dr: Osei Malik D.O. Ordering Physician: Osei Malik D.O. Date of Service: 10/22/24 Procedure(s): US OB BPP w non-stress Accession Number(s): [id number] cc: JB MANDUJANO ; Osei Malik D.O. [place] [address] Patient Name: MADYSON MAI MRN: [id number] date: 2000 Sex: F Assigned Patient Location: [facility] Current Patient Location: Accession/Order Number: [id number] Exam Date: 10/22/2024 17:05 Report Date: 10/23/2024 [...] Signed By: 10/23/24 0745 DD/ 0742 TD/TT: Hvac Mechanic: [facility] Urinalysis macro (dipstick) panel (U)on 10-15-2024 Bilirubin, UA Negative Negative - 4(70) +++ mg/dL [facility] Blood, UA Negative Negative - 50 Vasu/mcL [facility] Healthcare Clarity, UA Clear [facility] Color, UA Yellow [facility] Glucose, UA Positive Negative - 1999(110) ++++ mg/dL [facility] Comment on above: 500 Interpretation and review of laboratory results Abnormal [facility] Ketones, UA Negative Negative - 160(16) ++++ mg/dL [facility] Leukocytes, UA Positive Negative - 500+++ Conrad/mcL [facility] Comment on above: small Nitrite, UA Negative Negative - Positive [facility] pH, UA 6 5 - 9 [facility] Protein, UA Trace Negative - 1999(20) ++++ mg/dL [facility] Spec Grav, UA 1.02 1 - 1.03 [facility] Urobilinogen, UA 0.2 0.2 - 12 mg/dL [facility] Urinalysis macro (dipstick) panel (U)on 10-02-2024 Bilirubin, UA Negative Negative - 4(70) +++ mg/dL [facility] Blood, UA Negative Negative - 50 Vasu/mcL [facility] Clarity, UA Clear [facility] Color, UA Yellow [facility] Glucose, UA Negative Negative - 1999(110) ++++ mg/dL [facility] Interpretation and review of laboratory results Abnormal [facility] Ketones, UA Positive Negative - 160(16) ++++ mg/dL [facility] Comment on above: 40 Leukocytes, UA Trace Negative - 500+++ Conrad/mcL [facility] Nitrite, UA Negative Negative - Positive [facility] pH, UA 6 5 - 9 [facility] Protein, UA Positive Negative - 1999(20) ++++ mg/dL [facility] Comment on above: 30 Spec Grav, UA 1.03 1 - 1.03 [facility] Urobilinogen, UA 0.2 0.2 - 12 mg/dL [facility] UA (CLEAN/CATCH) TENNIS NET MAKER/YOUSIF RO IF IND.on 09-25-2024 BILIRUBIN URINE Negative NEGATIVE [facility] BLOOD URINE Negative NEGATIVE [facility] Clarity (U) CLEAR CLEAR [facility] Color (U) LT. YELLOW YELLOW [facility] GLUCOSE URINE UA 250 mg/dL Abnormal NEGATIVE [facility] Interpretation and review of laboratory results Abnormal [facility] Ketones Ql (U) Negative NEGATIVE mg/dL [facility] Leukocyte esterase Test strip Ql (U) SMALL Abnormal NEGATIVE [facility] NITRITE URINE Negative NEGATIVE [facility] pH (U) 6.0 [pH] 5.0 - 9.0 [facility] PROTEIN URINE Negative NEG/TRACE mg/dL [facility] SPECIFIC GRAVITY URINE 1.020 1.005 - 1.025 [facility] URINE MICROSCOPIC INDICATED YES [facility] UROBILINOGEN URINE 0.2 EU/dL 0.2 - 1.0 EU/dL [facility] Urine Cultureon 09-25-2024 Bacteria identified Cx [facility] (U) <9,000 colonies/ml mixed bacterial skin contaminants 2 Days PERFORMED BY: [place] [address] PATHOLOGIST BUSINESS DEVELOPMENT RECRUITER KARMA BUCK M.D. Normal The [facility] Comment on above: Performed By: #### C UU #### [address] Urinalysis macro (dipstick) panel (U)on 09-18-2024 Bilirubin, UA Negative Negative - 4(70) +++ mg/dL [facility] Blood, UA Negative Negative - 50 Vasu/mcL [facility] Clarity, UA Clear [facility] Color, UA Yellow [facility] Glucose, UA Positive Negative - 1999(110) ++++ mg/dL [facility] Comment on above: 100 Interpretation and review of laboratory results Abnormal [facility] Ketones, UA Negative Negative - 160(16) ++++ mg/dL [facility] Leukocytes, UA Positive Negative - 500+++ Conrad/mcL [facility] Comment on above: small Nitrite, UA Negative Negative - Positive [facility] pH, UA 7 5 - 9 [facility] Protein, UA Trace Negative - 1999(20) ++++ mg/dL [facility] Spec Grav, UA 1.02 1 - 1.03 [facility] Urobilinogen, UA 0.2 0.2 - 12 mg/dL [facility] Urinalysis macro (dipstick) panel (U)on 09-03-2024 Bilirubin, UA Negative Negative - 4(70) +++ mg/dL [facility] Blood, UA Negative Negative - 50 Vasu/mcL [facility] Clarity, UA Clear [facility] Color, UA Yellow [facility] Glucose, UA Many Negative - 2000(110) ++++ mg/dL [facility] Interpretation and review of laboratory results Abnormal [facility] Ketones, UA Positive Negative - 160(16) ++++ mg/dL [facility] Leukocytes, UA Positive Negative - 500+++ Conrad/mcL [facility] Nitrite, UA Negative Negative - Positive [facility] pH, UA 6.5 5 - 9 [facility] Protein, UA Moderate Negative - 2000(20) ++++ mg/dL [facility] Spec Grav, UA 1.025 1 - 1.03 [facility] Urobilinogen, UA 0.2 0.2 - 12 mg/dL [facility] GLUCOSE TOLERANCE 3 HOURon 1 11-02-2023 GLUCOSE TOLERANCE 3 HOUR High mg/dL [facility] Comment on above: GLU FAST 86 (<95) Co l: 09/01/24 0818 GLU 1HR 162 (<180) Col: 09/01/24 0919 GLU 2HR 156H (<155) Col: 09/01/24 1019 GLU 3HR 110 (<140) Col: 09/01/24 1119 Interpretation and review of laboratory results Abnormal [facility] ALL CBC WITH AUTO DIFFon BASOPHILS ABSOLUTE AUTO 0 [facility] Basophils/100 WBC (Bld) 0.2 % 0.2 - 2.0 % [facility] Eosinophils/100 WBC (Bld) 0.7 % Low 0.9 - 7.0 % [facility] Erythrocyte distribution width (RBC) [Ratio] 13.6 % 11.0 - 15.0 % [facility] Hematocrit (Bld) [Volume fraction] 32.9 % Low 36.0 - 48.0 % [facility] Hemoglobin (Bld) [Mass/Vol] 11.1 g/dL Low 12.0 - 16.0 g/dL [facility] IMMATURE GRANULOCYTES ABS AUTO 0.11 High [facility] Immature granulocytes/100 WBC (Bld) 1.1 % High 0.0 - 0.5 % [facility] Interpretation and review of laboratory results Abnormal [facility] LYMPHOCYTES ABSOLUTE AUTO 1.3 [facility] Lymphocytes/100 WBC (Bld) 13 % Low 20.5 - 60.0 % [facility] MCH (RBC) [Entitic mass] 29.6 pg 26.7 - 34.0 pg [facility] MCHC (RBC) [Mass/Vol] 33.7 g/dL 29.9 - 35.2 g/dL [facility] MCV (RBC) [Entitic vol] 87.7 fL 81.0 - 99.0 fL [facility] MONOCYTES ABSOLUTE AUTO 0.6 [facility] Monocytes/100 WBC (Bld) 5.5 % 1.7 - 12.0 % [facility] NEUTROPHILS ABSOLUTE AUTO 7.9 High [facility] Neutrophils/100 WBC (Bld) 79.5 % High 43.0 - 75.0 % [facility] Platelet mean volume (Bld) [Entitic vol] 10.3 fL 9.5 - 13.5 fL [facility] TB EO # 0.1 [facility] PLT 178 [facility] RBC 3.75 Low [facility] WBC 9.9 [facility] IGP,APTIMA HPV,AGE GDLNon AGE GDLN ACOG TESTING Note . [facility] Comment on above: TESTS RESULT FLAG UN ITS REF RANGE LAB Clinician Provided Cytology Information Source.............Cervix No. of containers..01 ThinPrep Vial Age Algo ACOG Maureen... FLAG LEGEND: L-Low Normal,H-High Normal,LL-Alert Low,HH-Alert High <-Panic Low,>-Panic High,A-Abnormal,AA-Critical Abnormal Performed at: 01 =G [facility] [address] [place] [address] Toya Wilson MD, IGP, RFX APTIMA HPV ASCU Note . [facility] Comment on above: TESTS RESULT FLAG UN ITS REF RANGE LAB DIAGNOSIS: 02 NEGATIVE FOR INTRAEPITHELIAL LESION OR MALIGNANCY. Specimen adequacy: 02 Satisfactory for evaluation. No endocervical component is identified. Performed by: 02 Imelda Miranda Sap Data Analyst ([facility]) . 02 Note: Note 02 The [...] High,A-Abnormal,AA-Critical Abnormal Performed at: 02 WB [facility] [address], [place] [id number] Toya Wilson MD, Performed at: = - [address], [place] [id number] Powertrain Engineer: Toya Wilson MD, Phone: [phone] Performed at: [facility] [address] [facility], [place] [id number] Powertrain Engineer: oTya Wilson MD, Phone: [phone] [facility] AFP, SERUM, OPEN SPINA BIFID Aon 08-13-2024 AFP MOM 2.24 . [facility] AFP VALUE 103.1 ng/mL . [facility] COMMENT: Comment . [facility] Comment on above: Joyce Reina , Ph.D., [facility] Director References: Available Upon Request. Multiples Of Median Cutoffs For AFP Elevations Harrington 2.5 Black 2.8 IDD 2.0 Twins 4.5 Abbreviation Definitions IDD - Insulin Dep Diabetes OSBR - Open Spina Bifida Risk For further inquiries contact [facility] at [phone]. This test was developed and its performance characteristics determined by [employer]. It has not been cleared or approved by the Food and Drug Administration. Performed at: [facility] RT[facility] [address] [place], [place] [id number] Powertrain Engineer: Angel Regan Formerly [facility], Phone: [phone] GEST. AGE ON COLLECTION DATE 20.3 . weeks [facility] GESTAT. AGE BASED ON LMP . [facility] Comment on above: Recalculations are n ot recommended when gestational dating by LMP and ultrasound are within 10 days. INSULIN DEP DIABETES No . [facility] INTERPRETATION Comment . [facility] Comment on above: Interpretation: Scre en Negative [...] Customer Services to discuss available options. The [employer] recommends amniocentesis be offered to women age 35 and older. [age] [facility] MULTIPLE GESTATION Twins . [facility] OSBR RISK 1 IN 1081 . [facility] RACE . [facility] RESULTS Report . [facility] TEST RESULTS: Negative . [facility] WEIGHT 219 . lbs [facility] N N LMP [id number] 3 19 N 2 Y 219 N N N N N White/ [facility] US for pregnancyon THIS EXAM WAS PERFOR MED AT [facility] Coding ====== Procedures 96781: Comprehensive Detailed Anatomy Ultrasound 16937: Comprehensive Detailed Anatomy Ultrasound- Additional Fetus 41719: Transvaginal Ultrasound (OB) Indication ======== Di-Di twin [...] 0 lb 13 oz EFW by Hadlock ([id number]) EFW discordance 10.9 % Head / Face / Neck Biometry: Cephalic index 0.81 73% Nicolaides Recruitment Consultant 6.4 mm CM 4.4 mm 26% [...] 0 lb 14 oz EFW by Hadlock ([id number]) EFW discordance 10.9 % Head / Face / Neck Biometry: Cephalic index 0.71 1% Nicolaides Recruitment Consultant 6.8 mm CM 4.3 mm 23% [...] Heart / Th (more content not included)... [facility] Radiology, Radiologyelitza cervantes MD - 08/13/2024 THIS EXAM WAS PERFORMED AT [facility] Coding ====== Procedures 60011: Comprehensive Detailed Anatomy Ultrasound 42147: Comprehensive Detailed Anatomy Ultrasound- Additional Fetus 70731: Transvaginal Ultrasound (OB) Indication ======== Di-Di twin [...] 0 lb 13 oz EFW by Hadlock ([id number]) EFW discordance 10.9 % Head / Face / Neck Biometry: Cephalic index 0.81 73% Nicolaides Recruitment Consultant 6.4 mm CM 4.4 mm 26% [...] 0 lb 14 oz EFW by Hadlock ([id number]) EFW discordance 10.9 % Head / Face / Neck Biometry: Cephalic index 0.71 1% Nicolaides Recruitment Consultant 6.8 mm CM 4.3 mm 23% [...] Heart / Thorax 4-chamber view. 3-vessel view. 1-cfnhmx-hcvtshd view. Interventricular septum. Diaphragm. Abdomen Right renal [...] Nuchal fold. F (more content not included)... [facility] Radiology Study observation (narrative) [facility] US for pregnancyOrdered By: Radiologist Radiology on 08-13-2024 [facility] Work Phone: RECURRENT VAGINITIS (HTRX)on 08-07-2024 ATOPOBIUM VAGINAE 29.356 Abnormal [facility] ATOPOBIUM VAGINAE Detected Abnormal [facility] BVAB 2,3 (BACTERIAL VAGINOSIS ASSOCIATED BACTERIA 2, 3); MOBILUNCUS SPP 0 [facility] BVAB 2,3 (BACTERIAL VAGINOSIS ASSOCIATED BACTERIA 2, 3); MOBILUNCUS SPP Not detected [facility] SANTHOSH ALBICANS, PARAPSILOSIS, TROPICALIS 0 [facility] SANTHOSH ALBICANS, PARAPSILOSIS, TROPICALIS Not detected [facility] SANTHOSH GLABRATA 0 [facility] SANTHOSH GLABRATA Not detected [facility] SANTHOSH KRUSEI 0 [facility] SANTHOSH KRUSEI Not detected [facility] CHLAMYDIA TRACHOMATIS 0 [facility] CHLAMYDIA TRACHOMATIS Not detected N [facility] GARDNERELLA VAGINALIS 0 [facility] GARDNERELLA VAGINALIS Not detected N [facility] Interpretation and review of laboratory results Abnormal [facility] MEGASPHAERA (TYPES 1, 2) 0 [facility] MEGASPHAERA (TYPES 1, 2) Not detected [facility] MYCOPLASMA GENITALIUM 0 [facility] MYCOPLASMA GENITALIUM Not detected N [facility] NEISSERIA GONORRHOEAE 0 [facility] NEISSERIA GONORRHOEAE Not detected N [facility] TRICHOMONAS VAGINALIS 0 [facility] TRICHOMONAS VAGINALIS Not detected N [facility] Urinalysis macro (dipstick) panel (U)on 08-05-2024 Bilirubin, UA Negative Negative - 4(70) +++ mg/dL [facility] Blood, UA Negative Negative - 50 Vasu/mcL [facility] Clarity, UA Clear [facility] Color, UA Yellow [facility] Glucose, UA Negative Negative - 1999(110) ++++ mg/dL [facility] Interpretation and review of laboratory results Normal [facility] Ketones, UA Negative Negative - 160(16) ++++ mg/dL [facility] Leukocytes, UA Negative Negative - 500+++ Conrad/mcL [facility] Nitrite, UA Negative Negative - Positive [facility] pH, UA 5.5 5 - 9 [facility] Protein, UA Negative Negative - 1999(20) ++++ mg/dL [facility] Spec Grav, UA 1.02 1 - 1.03 [facility] Urobilinogen, UA 1.0 0.2 - 12 mg/dL [facility] Urinalysis macro (dipstick) panel (U)on 07-03-2024 Bilirubin, UA Negative Negative - 4(70) +++ mg/dL [facility] Blood, UA Negative Negative - 50 Vasu/mcL [facility] Clarity, UA Clear [facility] Color, UA Yellow [facility] Glucose, UA Positive Negative - 1999(110) ++++ mg/dL [facility] Comment on above: 500 Interpretation and review of laboratory results Abnormal [facility] Ketones, UA Negative Negative - 160(16) ++++ mg/dL [facility] Leukocytes, UA Negative Negative - 500+++ Conrad/mcL [facility] Nitrite, UA Negative Negative - Positive [facility] pH, UA 6.0 5 - 9 [facility] Protein, UA Negative Negative - 1999(20) ++++ mg/dL [facility] Spec Grav, UA 1.015 1 - 1.03 [facility] Urobilinogen, UA 0.2 0.2 - 12 mg/dL [facility] Urinalysis macro (dipstick) panel (U)Ordered By: Ibis Sandoval on 06-04-2024 Bilirubin, UA Negative Negative - 4(70) +++ mg/dL [facility] Blood, UA Positive Negative - 50 Vasu/mcL [facility] Comment on above: trace-intact Clarity, UA Clear [facility] Color, UA Yellow [facility] Glucose, UA Negative Negative - 1999(110) ++++ mg/dL [facility] Interpretation and review of laboratory results Abnormal [facility] Ketones, UA Negative Negative - 160(16) ++++ mg/dL [facility] Leukocytes, UA Trace Negative - 500+++ Conrad/mcL [facility] Nitrite, UA Negative Negative - Positive [facility] pH, UA 5.5 5 - 9 [facility] Protein, UA Negative Negative - 2000(20) ++++ mg/dL [facility] Spec Grav, UA 1.005 1 - 1.03 [facility] Urobilinogen, UA 0.2 0.2 - 12 mg/dL [facility] ALL CBC WITH AUTO DIFFon BASOPHILS ABSOLUTE AUTO 0.0 [facility] Basophils/100 WBC (Bld) 0.5 % 0.2 - 2.0 % [facility] Eosinophils/100 WBC (Bld) 0.5 % Low 0.9 - 7.0 % [facility] Erythrocyte distribution width (RBC) [Ratio] 11.9 % 11.0 - 15.0 % [facility] IMMATURE GRANULOCYTES ABS AUTO 0.03 [facility] Immature granulocytes/100 WBC (Bld) 0.4 % 0.0 - 0.5 % [facility] Interpretation and review of laboratory results Abnormal [facility] LYMPHOCYTES ABSOLUTE AUTO 1.8 [facility] Lymphocytes/100 WBC (Bld) 23.3 % 20.5 - 60.0 % [facility] MCH (RBC) [Entitic mass] 29.7 pg 26.7 - 34.0 pg [facility] MCHC (RBC) [Mass/Vol] 34.9 g/dL 29.9 - 35.2 g/dL [facility] MCV (RBC) [Entitic vol] 85.1 fL 81.0 - 99.0 fL [facility] MONOCYTES ABSOLUTE AUTO 0.5 [facility] Monocytes/100 WBC (Bld) 6.3 % 1.7 - 12.0 % [facility] NEUTROPHILS ABSOLUTE AUTO 5.4 [facility] Neutrophils/100 WBC (Bld) 69.0 % 43.0 - 75.0 % [facility] Platelet mean volume (Bld) [Entitic vol] 10.3 fL 9.5 - 13.5 fL [facility] TBH EO # 0.0 [facility] PLT [address] [facility] RBC 4.55 [facility] WBC 7.8 [facility] - Hematology and Cell countson 05-24-2024 Hematocrit (Bld) [Volume fraction] 38.7 % [facility] Hemoglobin (Bld) [Mass/Vol] 13.5 g/dL [facility] No Panel Informationon 05-24 [facility] HCG ( test) Ql (U)o n 05-23-2024 Interpretation and review of laboratory results Abnormal [facility] Preg Test, Ur Positive [facility] Urinalysis macro (dipstick) panel (U)on 05-23-2024 Bilirubin, UA Negative Negative - 4(70) +++ mg/dL [facility] Blood, UA Negative Negative - 50 Vasu/mcL [facility] Clarity, UA Clear [facility] Color, UA Yellow [facility] Glucose, UA Negative Negative - 1999(110) ++++ mg/dL [facility] Interpretation and review of laboratory results Normal [facility] Ketones, UA Negative Negative - 160(16) ++++ mg/dL [facility] Leukocytes, UA Negative Negative - 500+++ Conrad/mcL [facility] Nitrite, UA Negative Negative - Positive [facility] pH, UA 7.0 5 - 9 [facility] Protein, UA Negative Negative - 1999(20) ++++ mg/dL [facility] Spec Grav, UA 1.025 1 - 1.03 [facility] Urobilinogen, UA 1.0 0.2 - 12 mg/dL [...] Progesterone Lvl 31.70 ng/mL Invalid Interpretation Code [facility] Comment on above: Result Comment: 'F N ON FOLLICULAR = 0.10 - 0.60' 'LUTEAL = 3.00 - 17.5' 'MIDLUTEAL = 3.30 - 18.6' 'POST-MENOPAUSE = 0.10 - 0.40' '-FIRST TRIMESTER = 8.30 - 66.5' 'SECOND TRIMESTER = 18.9 - 66.1' 'THIRD TRIMESTER = 35.8 - 312.4' 'MALES = 0.14 - 2.06' Performed By: #### 2 [id number] #### [facility] [address] [place] [address] CHEMISTRYOrdered By: SYSTEM SYSTEM on 03-14-2024 Progesterone [...] Consent for Treatmenton 02-23 Consent for Treatment [id number]#[id number] Normal [facility] Physician Orderon 03-14-2024 Physician Order [id number]#[id number] Normal [facility] Progesteroneon 03-14-2024 Progesterone Lvl 16.15 ng/mL Invalid Interpretation Code [facility] Comment on above: Result Comment: 'F N ON FOLLICULAR = 0.10 - 0.60' 'LUTEAL = 3.00 - 17.5' 'MIDLUTEAL = 3.30 - 18.6' 'POST-MENOPAUSE = 0.10 - 0.40' '-FIRST TRIMESTER = 8.30 - 66.5' 'SECOND TRIMESTER = 18.9 - 66.1' 'THIRD TRIMESTER = 35.8 - 312.4' 'MALES = 0.14 - 2.06' Performed By: #### 2 [id number] #### [facility] [address] [place] [address] Ambulatory Visit Summaryon 0 12-11-2023 Ambulatory Visit Summary MADYSON MAI DOB:2000 Visit Date:12/11/2023 Ambulatory Visit Instructions Your Diagnosis [...] 11:20 AM EDT With: Krista Daley Where: [facility] [place] Normal [facility] Family Medicine Office/Clini c Noteon 12-11-2023 Family Medicine Office/Clinic Note HPI Staff Madyson is a 23 year old female presenting to critical access hospital care Establish Care: History: Any previous diagnosis: POTS (11/30/23) History of seeing any specialist: Jyoti Dickey CC 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 BMI 33.0-33.9,adult (Z68.33: Body mass index [BMI] 33.0-33.9, adult) BMI education complete Ordered: omeprazole, 40 mg = 1 cap(s), Oral, Daily, # 30 cap(s), Refills(s) 1, Pharmacy: [facility], 168.3, cm, 12/11/23 13:07:00 EDT, Height/Length Dosing, 93.6, kg, 12/11/23 13:07:00 EDT, Weight Dosing 3. Class 1 obesity due to excess calories in adult (E66.09: Other obesity due to excess calories) see above Ordered: omeprazole, 40 mg = 1 cap(s), Oral, Daily, # 30 cap(s), Refills(s) 1, Pharmacy: [facility], 168.3, cm, 12/11/23 13:07:00 EDT, Height/Length [...] 03/05/2002 Recorded (more content not included)... Normal [facility] Comment on above: Result Comment: Elec tronically Signed By: Krista Daley\.br\Date and Time Signed: 12/11/23 13:32 EDT CNOVon 11-30-2023 CNOV Office Visit (NENMMN ) ----- PEREZMADYSON DOAN ([id number]) 2 F Date Time Provider Department 11/30/23 10:00 AM JYOTI DICKEY During your visit today, we recorded the following information about you: Pulse Blood pressure Weight Height 84/minute 118/79 93 kg 1.651 m Jyoti Dickey PA-C 11/30/2023 11:14 AM Signed [facility] Neuromuscular Medicine New Patient [...] experienced LOC while walking up the stairs. [place] prodromal symptoms including lightheadedness and tunnel vision. [...] Urination: + (more content not included)... Normal [facility] ECHOon 11-12-2023 Echocardiography Echocardiography Rep ort: Transthoracic Echo [facility] A17 Date of service: 11/12/2023 1:08:10 PM OPERATOR Ordering physician: AURORA SANTIAGO Indication: Initial [...] * * Final * * * CC [facility] [employer] [facility] Image : [id number] Normal [facility] CNOVon 10-10-2023 CNOV Office Visit (NEADMN ) ----- MADYSON MAI ([id number]) 2 F Date Time Provider Department 10/10/23 2:00 PM AURORA SANTIAGO NEADMN During your visit today, we recorded the following information about you: Pulse Blood pressure Weight Height 108/minute 119/85 93 kg 1.651 m Aurora Santiago PA-C 10/10/2023 4:33 PM Signed [facility] New Patient [...] on BC (more content not included)... Normal [facility] Quantiferon-TB Plus (Client Incubated)on 07-26-2023 Gamma interferon background IA Qn (Bld) 0.01 International_Unit/mL Invalid Interpretation Code [facility] Comment on above: Performed By: #### 1 [id number], [id number], [id number], [id number] #### [facility] [address] [place] [address] M. tuberculosis stim IFN-g by CD4+ CD8+ T-cells Qn (Bld) 0.30 International_Unit/mL Invalid Interpretation Code [facility] Comment on above: Performed By: #### 1 [id number], [id number], [id number], [id number] #### [facility] [address] [place] [address] M. tuberculosis stim IFN-g by CD4+ T-cells Qn (Bld) 0.23 International_Unit/mL Invalid Interpretation Code [facility] Comment on above: Performed By: #### 1 [id number], [id number], [id number], [id number] #### [facility] [address] [place] [address] M. tuberculosis stim IFN-g Ql (Bld) [Interp] Negative Invalid Interpretation Code Negative [facility] Comment on above: Result Comment: No [...] interferon gamma. Chemiluminescence immunoassay methodology Performed at: [facility] [id number] PhD Rubio Vinson Performed By: #### 1 [id number], [id number], [id number], [id number] #### [facility] [address] [place] [address] Mitogen stimulated gamma interferon Qn (Bld) >10.00 Invalid Interpretation Code [facility] Comment on above: Performed By: #### 1 [id number], [id number], [id number], [id number] #### [facility] [address] [place] [address] Service comment (Unsp spec) [Interp] Comment Invalid Interpretation Code [facility] Comment on above: Result Comment: Link [...] for the test. Performed By: #### 1 [id number], [id number], [id number], [id number] #### [facility] [address] [place] [address] Hep Bs Abon 07-25-2023 HBV surface Ab Ql (S) Non-Reactive Invalid Interpretation Code [facility] Comment on above: Result Comment: Non Reactive: Inconsistent with immunity, less than 10 mIU/mL Reactive: Consistent with immunity, greater than 9.9 mIU/mL Performed at: [facility] [id number] PhD Rubio Vinson Performed By: #### 1 [id number], [id number], [id number], [id number] #### [facility] [address] [place] [address] Measles/Mumps/Rubella Immuni tyon 07-25-2023 MeV IgG IA Qn (S) 34.3 A unit/mL Invalid Interpretation Code Immune >16.4 [facility] Comment on above: Result Comment: Nega tive <13.5 Equivocal 13.5 - 16.4 Positive >16.4 Presence of antibodies to Rubeola is presumptive evidence of immunity except when acute infection is suspected. Performed By: #### 1 [id number], [id number], [id number], [id number] #### [facility] [address] [place] [address] MuV IgG IA Qn (S) <9.0 Low Immune >10.9 [facility] Comment on above: Result Comment: Nega tive <9.0 Equivocal 9.0 - 10.9 Positive >10.9 A positive result generally indicates past exposure to Mumps virus or previous vaccination. Performed at: [facility] [id number] PhD Rubio Vinson Performed By: #### 1 [id number], [id number], [id number], [id number] #### [facility] [address] [place] [address] Rubella virus IgG Qn (S) 1.53 [IU]/mL Invalid Interpretation Code Immune >0.99 [facility] Comment on above: Result Comment: Non- immune <0.90 Equivocal 0.90 - 0.99 Immune >0.99 Performed By: #### 1 [id number], 6772494, [id number], [id number] #### [facility] [address] [place] [address] Varic IgGon 07-25-2023 VZV IgG IA Qn (S) 475 Invalid Interpretation Code Immune >165 [facility] Comment on above: Result Comment: Nega tive <135 Equivocal 135 - 165 Positive >165 A positive result generally indicates exposure to the pathogen or administration of specific immunoglobulins, but it is not indication of active infection or stage of disease. Performed at: [facility] [id number] PhD Rubio Vinson Performed By: #### 1 [id number], [id number], [id number], [id number] #### [facility] [address] [place] [address] CNOVon 07-10-2023 CNOV Office Visit (ORFWHP ) ----- MADYSON SCHMID ([id number]) 2 F Date Time Provider Department 07/10/23 9:40 AM JOSE ARMANDO GREY ORFWHP During your visit today, we recorded the following information about you: Jose Armando Grey DO 07/10/2023 10:08 AM Signed [facility] Office Visit Documentation Note [facility] Sports Medicine Orthopaedic and Rheumatologic [place] HISTORY OF PRESENT ILLNESS (HPI) CHIEF COMPLAINT / REASON FOR VISIT SERVICE DATE: July 10, 2023 PCP: No primary care provider on file. Madyson Schmid is here today at request of Dr. Jose Armando Schmid specifically for consultation of my opinion in regards to the chief complaint listed below. Correspondence will be shared today via the [email or web address] electronic health record or through regular mail, [...] expectations. 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 Reaction knee brace Consider [place] toradol, did discuss orthobiologics Follow up: Films prior to visit: Written instructions (see patient instructions) and verbal health education given to patient. Patient verbalizes understanding and agrees with the treatment plan. Jose Armando Grey D.O. [facility] Orthopaedic and Rheumatologic Supplier Quality Engineer, [place] [facility] [employer] Program Team Physician, [facility] [employer] Consulting Physician, Kenyon Martin Nagel, Bill Board Poster [phone] Referring Provider: SELF [200] Allergies As of [...] Level of (more content not included)... Normal [facility] HEART HUMAROCKon 07-10 [facility] Tobacco Screening.on 023 Adult depression screening assessment No [facility] 600 DO Work Phone: Tobacco use status CPHS b) No [facility] 600 DO Work Phone: Activated partial thrombopla stin time (aPTT) in platelet poor plasma by coagulation aOrdered By: Haris Martino on 06-08-2023 aPTT Coag (PPP) [Time] 28.9 s 25.1-36.5 [facility] Comment on above: A hematocrit value g reater than 55% may lead to inaccurate results in coagulation testing. Patients having hematocrit values >55% require a special collection tube for coagulation studies. Please contact the laboratory at [phone] for redraw instructions. Alanine aminotransferase [En zymatic activity/volume] in Serum or PlasmaOrdered By: Haris Martino on 06-08-2023 ALT [Catalytic activity/Vol] 42 U/L 7-52 [facility] Albumin [Mass/volume] in Ser um or Plasma by Bromocresol green (BCG) dye binding methoOrdered By: Haris Martino on 06-08-2023 Albumin BCG dye [Mass/Vol] 4.6 g/dL 3.5-5.7 [facility] Alkaline phosphatase [Enzyma tic activity/volume] in Serum or PlasmaOrdered By: Haris Martino on 06-08-2023 ALP [Catalytic activity/Vol] 78 U/L 34-104 [facility] Aspartate aminotransferase [ Enzymatic activity/volume] in Serum or PlasmaOrdered By: Haris Martino on 06-08-2023 AST [Catalytic activity/Vol] 22 U/L 13-39 [facility] Automated erythrocytes count in urine sediment (number/area)Ordered By: Haris Martino on 06-08-2023 RBC Auto (Urine sed) [#/Area] 5-9 [HPF] 0-4 [facility] Automated leukocytes count i n urine sediment (number/area)Ordered By: Haris Martino on 06-08-2023 WBC Auto (Urine sed) [#/Area] 3-4 [HPF] 0-4 [facility] Basophils Auto (Bld) [#/Vol] Ordered By: Haris Martino on 06-08-2023 Basophils (Bld) [#/Vol] 0.1 10*3/uL 0.0-0.2 [facility] Basophils/100 WBC Auto (Bld) Ordered By: Haris Martino on 06-08-2023 Basophils/100 WBC (Bld) 1.0 % . [facility] Bilirubin Test strip Ql (U)O rdered By: Haris Martino on 06-08-2023 Bilirubin Ql (U) Negative Negative [facility] Bilirubin.direct [Mass/volum e] in Serum or PlasmaOrdered By: Haris Martino on 06-08-2023 Bilirubin.direct [Mass/Vol] 0.10 mg/dL 0.03-0.18 [facility] Bilirubin.total [Mass/volume ] in Serum or PlasmaOrdered By: Haris Martino on 06-08-2023 Bilirubin [Mass/Vol] 0.4 mg/dL 0.3-1.0 [facility] Calcium [Mass/volume] in Ser um or PlasmaOrdered By: Haris Martino on 06-08-2023 Calcium [Mass/Vol] 9.4 mg/dL 8.6-10.3 [facility] Carbon dioxide, total [Moles /volume] in Serum or PlasmaOrdered By: Haris Martino on 06-08-2023 CO2 [Moles/Vol] 29.3 mmol/L 21.0-31.0 [facility] Chloride [Moles/volume] in S colin or PlasmaOrdered By: Haris Martino on 06-08-2023 Chloride [Moles/Vol] 104 mmol/L 98-107 [facility] Color Auto (U)Ordered By: Terrell red Salena on 06-08-2023 Color (U) Yellow Yellow [facility] Creatine kinase [Enzymatic a ctivity/volume] in Serum or PlasmaOrdered By: Haris Martino on 06-08-2023 CK [Catalytic activity/Vol] 55 U/L 30-223 [facility] Creatinine [Mass/volume] in Serum or PlasmaOrdered By: Haris Martino on 06-08-2023 Creatinine [Mass/Vol] 0.64 mg/dL 0.60-1.20 [facility] Eosinophils Auto (Bld) [#/Vo l]Ordered By: Haris Martino on 06-08-2023 Eosinophils (Bld) [#/Vol] 0.1 10*3/uL 0.0-0.45 [facility] Eosinophils/100 WBC Auto (Bl d)Ordered By: Haris Martino on 06-08-2023 Eosinophils/100 WBC (Bld) 0.8 % . [facility] Erythrocyte distribution wid th Auto (RBC) [Ratio]Ordered By: Haris Martino on 06-08-2023 Erythrocyte distribution width (RBC) [Ratio] 12.9 % 11.9-15.3 [facility] Fibrin D-dimer [Presence] in Platelet poor plasma by Latex agglutinationOrdered By: Haris Martino on 06-08-2023 Fibrin D-dimer LA Ql (PPP) < 200 ng/mL 0-243 [facility] Comment on above: The reference range for [...] coagulation studies. Please contact the laboratory at [phone] for redraw instructions. Globulin Calc (S) [Mass/Vol] Ordered By: Haris Martino on 06-08-2023 Globulin (S) [Mass/Vol] 2.9 g/dL [facility] Glucose [Mass/volume] in Ser um or PlasmaOrdered [...] 06-08-2023 HCG ( test) Ql (U) Negative [facility] Hematocrit Auto (Bld) [Volum e fraction]Ordered By: Haris Martino on 06-08-2023 Hematocrit (Bld) [Volume fraction] 42.4 % 34.0-46.4 [facility] Hemoglobin [Mass/volume] in BloodOrdered By: Haris Martino on 06-08-2023 Hemoglobin (Bld) [Mass/Vol] 14.5 g/dL 11.8-15.4 [facility] INR in Platelet poor plasma by Coagulation assayOrdered By: Haris Martino on 06-08-2023 INR Coag (PPP) [Relative time] 1.0 {INR} [facility] Comment on above: INR Therapeutic Rang e [...] on 06-08-2023 Ketones (U) [Mass/Vol] Negative Negative [facility] Laboratory - UrinalysisOrder ed By: Haris Martino on 06-08-2023 Hyaline casts LM Ql (Urine sed) 0-8 [LPF] 0-8 [facility] Leukocytes [#/volume] correc matt for nucleated erythrocytes in Blood by Automated counOrdered By: Haris Martino on 06-08-2023 WBC corrected for nucl RBC Auto (Bld) [#/Vol] 8.3 10*3/uL 3.8-11.6 [facility] Lymphocytes Auto (Bld) [#/Vo l]Ordered By: Haris Martino on 06-08-2023 Lymphocytes (Bld) [#/Vol] 3.0 10*3/uL 1.00-4.8 [facility] Lymphocytes/100 WBC Auto (Bl d)Ordered By: Haris Martino on 06-08-2023 Lymphocytes/100 WBC (Bld) 36.0 % . [facility] MCH Auto (RBC) [Entitic mass ]Ordered By: Haris Martino on 06-08-2023 MCH (RBC) [Entitic mass] 29.4 pg 24.7-34.3 [facility] MCHC Auto (RBC) [Mass/Vol]Or dered By: Haris Martino on 06-08-2023 MCHC (RBC) [Mass/Vol] 34.2 g/dL 32.0-35.0 [facility] MCV Auto (RBC) [Entitic vol] Ordered By: Haris Martino on 06-08-2023 MCV (RBC) [Entitic vol] 85.9 fL 80-100 [facility] Monocyte distribution width [Entitic volume] in Blood by AutomatedOrdered By: Haris Martino on 06-08-2023 Monocyte distribution width Auto (Bld) [Entitic vol] 18.39 % 0.00-20.00 [facility] Monocytes Auto (Bld) [#/Vol] Ordered By: Haris Martino on 06-08-2023 Monocytes (Bld) [#/Vol] 0.5 10*3/uL 0.0-0.8 [facility] Monocytes/100 WBC Auto (Bld) Ordered By: Haris Martino on 06-08-2023 Monocytes/100 WBC (Bld) 6.6 % . [facility] Natriuretic peptide B [Mass/ Vol]Ordered By: Haris Martino on 06-08-2023 Natriuretic peptide B (Bld) [Mass/Vol] 9.0 pg/mL 5-100 [facility] Neutrophils Auto (Bld) [#/Vo l]Ordered By: Haris Martino on 06-08-2023 Neutrophils (Bld) [#/Vol] 4.6 10*3/uL 1.8-7.7 [facility] Neutrophils/100 WBC Auto (Bl d)Ordered By: Haris Martino on 06-08-2023 Neutrophils/100 WBC (Bld) 55.6 % . [facility] Nitrite Test strip Ql (U)Ord ered By: Haris Martino on 06-08-2023 Nitrite Ql (U) Negative Negative [facility] No Panel InformationOrdered By: Haris Martino on 06-08-2023 Estimated GFR (CKD-EPI) > 60.0 mL/Min [facility] Creatinine Clearance (Chem 155.50 [facility] Nucleated erythrocytes [Pres ence] in Blood by Automated countOrdered By: Haris Martino on 06-08-2023 Nucleated RBC Auto Ql (Bld) 0.1 /100{WBC} 0-0.5 [facility] Platelet mean volume Auto (B ld) [Entitic vol]Ordered By: Haris Martino on 06-08-2023 Platelet mean volume (Bld) [Entitic vol] 8.2 fL 6.3-10.7 [facility] Platelets Auto (Bld) [#/Vol] Ordered By: Haris Martino on 06-08-2023 Platelets (Bld) [#/Vol] 225 10*3/uL 150-450 [facility] Potassium [Moles/volume] in Serum or PlasmaOrdered By: Haris Martino on 06-08-2023 Potassium [Moles/Vol] 4.0 mmol/L 3.5-5.1 [facility] Protein Auto test strip (U) [Mass/Vol]Ordered By: Haris Martino on 06-08-2023 Protein (U) [Mass/Vol] Negative Negative [facility] Protein [Mass/volume] in Ser um or PlasmaOrdered By: Haris Martino on 06-08-2023 Protein [Mass/Vol] 7.5 g/dL 6.4-8.9 [facility] Prothrombin time (PT)Ordered By: Haris Martino on 06-08-2023 PT Coag (PPP) [Time] 12.2 s 9.0-12.9 [facility] Comment on above: A hematocrit value g reater than 55% may lead to inaccurate results in coagulation testing. Patients having hematocrit values >55% require a special collection tube for coagulation studies. Please contact the laboratory at [phone] for redraw instructions. RBC Auto (Bld) [#/Vol]Ordere d By: Haris Martino on 06-08-2023 RBC (Bld) [#/Vol] 4.94 10*6/uL 3.60-5.00 [facility] Serum or plasma albumin/glob ulin mass ratioOrdered By: Haris Martino on 06-08-2023 Albumin/Globulin [Mass ratio] 1.6 {ratio} [facility] Serum or plasma anion gap de terminationOrdered By: Haris Martino on 06-08-2023 Anion gap [Moles/Vol] 9.7 mmol/L 6.0-15.0 [facility] Serum or plasma non-glucuron idated bilirubin measurement (mass/volume)Ordered By: Haris Martino on 06-08-2023 Bilirubin.indirect [Mass/Vol] 0.3 mg/dL [facility] Sodium [Moles/volume] in Ser um or PlasmaOrdered By: Haris Martino on 06-08-2023 Sodium [Moles/Vol] 139 mmol/L 136-145 [facility] Specific gravity Auto test s trip (U) [Rel density]Ordered By: Haris Martino on 06-08-2023 Specific gravity (U) [Rel density] 1.015 1.001-1.03 0 [facility] Squamous epithelial cells de tection in urine sediment by light microscopyOrdered By: Haris Martino on 06-08-2023 Epithelial cells.squamous LM Ql (Urine sed) 3-4 [HPF] 0-2 [facility] Troponin I.cardiac [Mass/vol ume] in Serum or Plasma by Detection limit <= 0.01 ng/Ordered By: Haris Martino on 06-08-2023 Troponin I.cardiac DL <= 0.01 ng/mL [Mass/Vol] < 2.3 pg/mL 0.0-15.0 [facility] Urea nitrogen [Mass/volume] in Serum or PlasmaOrdered By: Haris Martino on 06-08-2023 Urea nitrogen [Mass/Vol] 10 mg/dL 7-25 [facility] Urine bacteria detection by automated methodOrdered By: Haris Martino on 06-08-2023 Bacteria Auto Ql (U) 1+ None Seen [facility] Urine clarity by refractomet ry automatedOrdered By: Haris Martino on 06-08-2023 Clarity Refractometry automated (U) Clear Clear [facility] Urine glucose measurement by automated test strip (mass/volume)Ordered By: Haris Martino on 06-08-2023 Glucose Auto test strip (U) [Mass/Vol] Normal mg/dL Normal [facility] Urine hemoglobin detection b y automated test stripOrdered By: Haris Martino on 06-08-2023 Hemoglobin Auto test strip Ql (U) Negative Negative [facility] Urine leukocyte esterase det ection by automated test stripOrdered By: Haris Martino on 06-08-2023 Leukocyte esterase Auto test strip Ql (U) 1+ Negative [facility] Urobilinogen Auto test strip (U) [Mass/Vol]Ordered By: Haris Martino on 06-08-2023 Urobilinogen (U) [Mass/Vol] Normal mg/dL Normal [facility] WBC Auto (Bld) [#/Vol]Ordere d By: Haris Martino on 06-08-2023 WBC (Bld) [#/Vol] 8.3 10*3/uL 3.8-11.6 [facility] pH Auto test strip (U)Ordere d By: Haris Martino on 06-08-2023 pH (U) 6.5 [pH] 5.0-9.0 [facility] Alanine aminotransferase [En zymatic activity/volume] in Serum or PlasmaOrdered By: Carlitos Nguyen on 04-25-2023 ALT [Catalytic activity/Vol] 18 U/L 7-52 [facility] Albumin [Mass/volume] in Ser um or Plasma by Bromocresol green (BCG) dye binding methoOrdered By: Carlitos Nguyen on 04-25-2023 Albumin BCG dye [Mass/Vol] 4.8 g/dL 3.5-5.7 [facility] Alkaline phosphatase [Enzyma tic activity/volume] in Serum or PlasmaOrdered By: Carlitos Nguyen on 04-25-2023 ALP [Catalytic activity/Vol] 73 U/L 34-104 [facility] Aspartate aminotransferase [ Enzymatic activity/volume] in Serum or PlasmaOrdered By: Carlitos Nguyen on 04-25-2023 AST [Catalytic activity/Vol] 18 U/L 13-39 [facility] Bilirubin.total [Mass/volume ] in Serum or PlasmaOrdered By: Carlitos Nguyen on 04-25-2023 Bilirubin [Mass/Vol] 0.5 mg/dL 0.3-1.0 [facility] Calcium [Mass/volume] in Ser um or PlasmaOrdered By: Carlitos Nguyen on 04-25-2023 Calcium [Mass/Vol] 9.9 mg/dL 8.6-10.3 [facility] Carbon dioxide, total [Moles /volume] in Serum or PlasmaOrdered By: Carlitos Nguyen on 04-25-2023 CO2 [Moles/Vol] 25.9 mmol/L 21.0-31.0 [facility] Chloride [Moles/volume] in S colin or PlasmaOrdered By: Carlitos Nguyen on 04-25-2023 Chloride [Moles/Vol] 105 mmol/L 98-107 [facility] Cholesterol [Mass/volume] in Serum or PlasmaOrdered By: Carlitos Nguyen on 04-25-2023 Cholesterol [Mass/Vol] 208 mg/dL 140-200 [facility] Comment on above: Chol less than 200 m g/dl low riskChol 201-239 mg/dl borderline riskChol 240 mg/dl and greater high risk Cholesterol in LDL Calc [Mas s/Vol]Ordered By: Carlitos Nguyen on 04-25-2023 Cholesterol in LDL [Mass/Vol] 136 mg/dL 0-100 [facility] Comment on above: LDL ATP III CLASSIFI CATIONLDL less than 100 mg/dL OptimalLDL 100-129 mg/dL Near or above optimalLDL 130-159 mg/dL Borderline highLDL 160-189 mg/dL HighLDL greater than 189 mg/dL Very high Cholesterol in VLDL Calc [Ma ss/Vol]Ordered By: Carlitos Nguyen on 04-25-2023 Cholesterol in VLDL [Mass/Vol] 16 mg/dL [facility] Creatinine [Mass/volume] in Serum or PlasmaOrdered By: Carlitos Nguyen on 04-25-2023 Creatinine [Mass/Vol] 0.81 mg/dL 0.60-1.20 [facility] Globulin Calc (S) [Mass/Vol] Ordered By: Carlitos Nguyen on 04-25-2023 Globulin (S) [Mass/Vol] 2.6 g/dL [facility] Glucose [Mass/volume] in Ser um or PlasmaOrdered By: Carlitos Nguyen on 04-25-2023 Glucose [Mass/Vol] 84 mg/dL 70-100 [facility] No Panel InformationOrdered By: Carlitos Nguyen on 04-25-2023 Estimated GFR (CKD-EPI) > 60.0 mL/Min [facility] Creatinine Clearance (Chem N/A [facility] Potassium [Moles/volume] in Serum or PlasmaOrdered By: Carlitos Nguyen on 04-25-2023 Potassium [Moles/Vol] 4.3 mmol/L 3.5-5.1 [facility] Comment on above: Hemolysis is present at a level that could interfere with the result. Protein [Mass/volume] in Ser um or PlasmaOrdered By: Carlitos Nguyen on 04-25-2023 Protein [Mass/Vol] 7.4 g/dL 6.4-8.9 [facility] Serum or plasma albumin/glob ulin mass ratioOrdered By: Carlitos Nguyen on 04-25-2023 Albumin/Globulin [Mass ratio] 1.8 {ratio} [facility] Serum or plasma anion gap de terminationOrdered By: Carlitos Nguyen on 04-25-2023 Anion gap [Moles/Vol] 12.4 mmol/L 6.0-15.0 [facility] Serum or plasma high density lipoprotein (HDL) cholesterol measurementOrdered By: Carlitos Nguyen on 04-25-2023 Cholesterol in HDL [Mass/Vol] 55 mg/dL 23-92 [facility] Comment on above: HDL CHOL ATP-III CLA SSIFICATION Cardiovascular RiskHDL > or equal to 60 mg/dL LOWHDL < 40 mg/dL HIGH Serum or plasma total choles terol/high density lipoprotein (HDL) cholesterol mass ratOrdered By: Carlitos Nguyen on 04-25-2023 Cholesterol.total/Chol esterol in HDL [Mass ratio] 3.8 {ratio} <5.0 [facility] Sodium [Moles/volume] in Ser um or PlasmaOrdered By: Carlitos Nguyen on 04-25-2023 Sodium [Moles/Vol] 139 mmol/L 136-145 [facility] Triglyceride [Mass/volume] i n Serum or PlasmaOrdered By: Carlitos Nguyen on 04-25-2023 Triglyceride [Mass/Vol] 83 mg/dL 0-149 [facility] Comment on above: TRIG ATP III CLASSIF ICATIONTRIG less than 150 mg/dL NormalTRIG 150-199 mg/dL Borderline highTRIG 200-500 mg/dL High TRIG greater than 500 mg/dL Very highStandard traceable to the Center for Disease Conrtrol and Prevention (CDC) test method. Urea nitrogen [Mass/volume] in Serum or PlasmaOrdered By: Carlitos Nguyen on 04-25-2023 Urea nitrogen [Mass/Vol] 15 mg/dL 7-25 [facility] Tobacco Screening.on 023 Adult depression screening assessment No [facility] 320 DO Work Phone: Fall risk assessment a) No falls within the last year [facility] 320 DO Work Phone: Tobacco use status CPHS b) No [facility] 320 DO Work Phone: Office Visit (Cardiology)on [...] in adult Healthy Weight Tips; Status:Complete; Done: [id number] SocHx: Never a smoker Tobacco Use Screening; Status:Complete; Done: [id number] Patient Instructions Please bring all medicines, vitamins, [...] she did get a second opinion in [place], and no change in medication was suggested [...] sinus sometime (more content not included)... Normal [employer] Tobacco Screening.on 022 Tobacco use status HS b) No -[facility] 250 DO Work Phone: Cardiovasc Arrhythmia Result son 07-31-2022 Cardiovasc Arrhythmia Results Reason For Visit MADYSON is here for the application of a [employer] monitor. Ordering Physician: Dr. Maza Diagnosis: abn TTT, dyspnea, syncope, autonomic orthostatic hypotension [facility] equipment agreement signed. MADYSON understands monitor is to be returned on: 08/14/22 Monitor number [id number] applied. Procedure Date I received for dictation [...] MD; Aug 28 2022 10:26AM EST Normal [facility] Office Visit (Cardiology)on 07-21-2022 Follow-up visit Diagnoses/Problems [...] Dr. Chan Jiang in 1 week. Tammy Meehan, STAMP PRESS OPERATOR, am scribing for and in the presence [...] heart murmur and has been transferred to [facility] There is no family history [...] cardiac data (more content not included)... Normal [employer] Tobacco Screening.on 10-28-2 022 Fall risk assessment b) One or more fall s in the last year [facility] 320 DO Work Phone: Tobacco use status [facility] b) No [facility] 320 DO Work Phone: Office Visit (Cardiology)on [...] Intake Activity Log Entry by Mar Orourke (dgBottle) on 2022-07-13 14:12 Status Change: To Confirmed - N/A AMA Intake updated by [facility] (INTRANET) on 2022-07-11 22:02 New Recipient: [...] Done: 10Jul2022 Healthy Weight Tips; Status:Complete; Done: [id number] Some eating tips that can help you [...] from 6 (more content not included)... Normal [facility] Tobacco Screening.on 022 Tobacco use status CPHS b) No [facility] 250 DO Work Phone: COVID CepheidOrdered By: Daniele Pearce on 06-01-2022 SARS-CoV-2 (COVID-19) Ab IA Ql Negative Negative [facility] Comment on above: This is a duplicate [employer] Xpert Xpress CoV-2/Flu/RSV Plus RNA by RT-PCR result to be used for statistical tracking purpose only. SARS-CoV-2 (COVID-19) RNA PERFECTO+probe Ql (Unsp spec) [facility] Office Visit (Cardiology)on 05-18-2022 Follow-up visit Diagnoses/Problems [...] in adult Healthy Weight Tips; Status:Complete; Done: [id number] Some eating tips that can help you lose weight.; Status:Complete; Done: 55Glx8666 Dyspnea, Syncope, unspecified syncope type Urine Test; Status:Active - Retrospective By Protocol Authorization; Requested for:[id number]; Palpitation Start: Atenolol 25 MG Oral Tablet; TAKE 1 TABLET DAILY Syncope, unspecified syncope type Tilt Table; Status:Hold For - Scheduling,Retrospective By Protocol Authorization; Requested for:[id number]; Patient Instructions Please bring all medicines, vitamins, [...] walking to the bathroom. She will see silk snapper in the near future, she had her pulmonary function test which I reviewed, there is concern for chronic asthma, but no reactive airway disease. She has 3 dogs that she had, and 1 cat at home. She is not orthostatic. She is feeling palpitations quite a bit. Results of the pulmonary function test and a [employer] was reviewed. Also reviewed stress test and [...] 3.5 c (more content not included)... Normal [employer] Tobacco Screening.on 022 Tobacco use status [facility]S b) [facility] DO Work Phone: No Panel Informationon 05-03 -[facility] 250 DO Work Phone: [facility] 250 DO Work Phone: Cardiovasc Arrhythmia Result son 03-28-2022 Cardiovasc Arrhythmia Results Reason For Visit Event Monitor: MADYSON is here for the application of a 30 day event monitor in office., Diagnosis: Palps, Dyspnea, Chest pain Ordering Physician: Enrollment sent to: [employer] Monitor number [id number] applied. Holter monitor printed and placed on [...] ySite 05/03/2022 10:00 AMTraMaría Elena brady MDCardiologySurgery [facility] 05/18/2022 09:15 AMMelodie Alcaraz MDCardiology[address] [place] 250 DO Signatures Electronically signed by : Melodie Alcaraz MD; May 01 2022 7:56PM EST (Author) Normal [facility] - Chemistry and C hemistry - challengeOrdered By: Melodie Alcaraz on 03-24-2022 Natriuretic peptide B (Bld) [Mass/Vol] 27.0 pg/mL 5-100 [facility] No Panel InformationOrdered By: Melodie Alcaraz on 03-24-2022 D-Dimer Quantitative (PE/DVT) < 200 ng/mL 0-243 [facility] Comment on above: The reference range for [...] No Panel Informationon 03-24 0.70\S\0.70 Normal 0.45-5.33 [facility] [employer] y 250 DO Work Phone: Comment on above: PERFORMED BY:[facility] [place], [place] [id number] MEDICAL DIRECTOROFE ELLIS M.D. 0.99\S\0.99 Normal 0.61-1.12 [facility] DO Work Phone: 27.0\S\27.0 Normal 5-100 [facility] 250 DO Work Phone: Comment on above: PERFORMED BY:[facility] [place], [place] [id number] MEDICAL DIRECTOROFE ELLIS M.D. < 200 Normal 0-243 [facility] 250 DO Work Phone: [...] in hospitalized patients due to co-morbid conditions.PERFORMED BY:[facility] [place] [phone] MEDICAL DIRECTOROFE ELLIS M.D. TSH DL <= 0.005 mIU/L QnOrde red By: Melodie Alcaraz on 03-24-2022 TSH Qn 0.70 m[IU]/L 0.45-5.33 [facility] Thyroxine (T4) free [Mass/vo lume] in Serum [...] All medical record entries made by the Scribe were at my direction and personally dictated [...] frequently pic (more content not included)... Normal [facility] PHQ-2 VITALSon 03-23-2022 Adult depression screening assessment No [facility] 250 DO Work Phone: Fall risk assessment c) Not medically indicated [facility] 250 DO Work Phone: Tobacco use status CPHS b) No [facility] 250 DO Work Phone: ARMANI BY IFA WITH REFLEXon Nuclear Ab IF (S) [Titer] Negative Negative [facility] CCP ANTIBODY IGGon Cyclic citrullinated peptide IgG Qn <15 <20 Units [facility] Cyclic citrullinated peptide IgG Qnon 01-26-2022 CCP Antibody IgG Qualitative Negative Negative [facility] Nuclear Ab IA Ql (S)on 01-26 ARMANI by EIA, Qual Negative Negative [facility] ARMANI BY IFA WITH REFLEXon Nuclear Ab IF (S) [Titer] Negative Normal Negative [facility] Comment on above: Order Comment: Speci men Type: BLOOD SPECIMEN Ordering Facility: [facility] Address: [address] [place] [address] Result Comment: Anti -nuclear antibody test is used as an aid in diagnosis of systemic autoimmune diseases. Where positive and clinically warranted, follow-up using disease-specific testing is recommended. Low positive titers are not uncommon with advanced age, certain chronic infections, and malignancies among others. Test methodology: Indirect fluorescence immunoassay (IFA) using HEp-2 cells. Performed By: #### A NAIFR #### [facility] CLIA [id number] [address] [place] [address] [place] [address] [place] C-REACTIVE PROTEIN (CRP)on 0 01-25-2022 CRP [Mass/Vol] 0.4 mg/dL <0.9 mg/dL [facility] C1 ESTERASE INHIBITon 2021 C1 ESTERASE INHIBIT 26 mg/dL Normal 21-38 [facility] Comment on above: Order Comment: Speci men Type: BLOOD SPECIMEN Ordering Facility: [facility] Address: [address] [place], [place] [address] Result Comment: Perf ormed By: [facility] [address] [place] [address] Medicare Nurse: Brittni Moscoso MD Performed By: #### 1 6570-4, 11750-3, 62603-9, 72009-0, 45216-2, 76091-4, 83885-9, 04400-0 #### [facility] CLIA [id number] [address] [place] C2 COMPLEMENT BLDon 01-26-20 22 C2 COMPLEMENT 2.4 mg/dL Normal 1.6-4.0 [facility] Comment on above: Order Comment: Speci ana rosa Type: BLOOD SPECIMEN Ordering Facility: [facility] Address: [address] [place], [place] [id number] Result Comment: INTE RPRETIVE INFORMATION: Complement Component 2 Decreased C2 levels may be associated with increased susceptibility to infection (especially pneumococcal infections), systemic lupus erythematosus-like disease, rashes, arthritis and nephritis, and with C1-Esterase deficiency. Increased C2 levels are associated with the acute phase response. This test was developed and its performance characteristics determined by [facility]. It has not been cleared or approved by the [place] Food and Drug Administration. This test was performed in a CLIA certified laboratory and is intended for clinical purposes. Performed By: [facility] [address] [place] [address] Medicare Nurse: Brittni Moscoso MD Performed By: #### 1 6570-4, 32794-9, 85558-8, 62132-0, 51889-1, 87663-3, 37761-6, 07374-1 #### [facility] CLIA [id number] [facility] [place] [place] [address] [place] C3 COMPLEMENT BLDon 01-26-20 22 Complement C3 [Mass/Vol] 130 mg/dL 86 - 166 mg/dL [facility] C3 SerPl-mCncon 01-25-2022 Complement C3 [Mass/Vol] 130 mg/dL Normal 86-166 [facility] Comment on above: Order Comment: Speci men Type: BLOOD SPECIMEN Ordering Facility: [facility] Address: [address] [place] [id number] Performed By: #### 1 6570-4, 12275-5, 57591-3, 21224-5, 63385-5, 00691-8, 30818-2, 02056-7 #### [facility] CLIA [id number] [address] [place] [address] [place] C4 COMPLEMENT BLDon 01-26-20 Complement C4 [Mass/Vol] 30 mg/dL 13 - 46 mg/dL [facility] C4 SerPl-mCncon 01-25-2022 Complement C4 [Mass/Vol] 30 mg/dL Normal 13-46 [facility] Comment on above: Order Comment: Speci men Type: BLOOD SPECIMEN Ordering Facility: [facility] Address: [address] [place] [address] Performed By: #### 1 6570-4, 38934-9, 97059-6, 64610-1, 52569-8, 74665-0, 47311-1, 22550-1 #### [facility] CLIA [id number] [address] [place] [address] [place] CBC panel Auto (Bld)on 01-25 Erythrocyte distribution width (RBC) [Ratio] 12.1 % Normal 11.5-15.0 [facility] Comment on above: Order Comment: Speci men Type: BLOOD SPECIMEN Ordering Facility: [facility] Address: [address] [place] [address] Performed By: #### 1 6570-4, 46451-0, 81940-5, 72266-0, 49345-0, 23812-4, 58738-2, 06912-3 #### [facility] CLIA [id number] [address] [place] [address] [place] Hematocrit (Bld) [Volume fraction] 42.6 % Normal 36.0-46.0 [facility] Comment on above: Order Comment: Speci men Type: BLOOD SPECIMEN Ordering Facility: [facility] Address: [address] [place], [place] [id number] Performed By: #### 1 6570-4, 92634-4, 16827-8, 40082-2, 51576-5, 45400-0, 17164-9, 90896-8 #### [facility] CLIA [id number] [address] [place] [address] [place] Hemoglobin (Bld) [Mass/Vol] 13.8 g/dL Normal 11.5-15.5 [facility] Comment on above: Order Comment: Speci men Type: BLOOD SPECIMEN Ordering Facility: [facility] Address: [address] [place] [address] Performed By: #### 1 6570-4, 48719-1, 05638-7, 81920-7, 37141-2, 41712-7, 39465-7, 21716-1 #### [facility] CLIA [id number] [address] [place] [address] [place] MCH (RBC) [Entitic mass] 28.3 pg Normal 26.0-34.0 [facility] Comment on above: Order Comment: Speci men Type: BLOOD SPECIMEN Ordering Facility: [facility] Address: [address] [place] [address] Performed By: #### 1 6570-4, 56755-4, 30757-4, 91031-0, 47538-2, 20650-3, 83551-9, 30369-1 #### [facility] CLIA [id number] [address] [place] [address] [place] MCHC (RBC) [Mass/Vol] 32.4 g/dL Normal 30.5-36.0 [facility] Comment on above: Order Comment: Speci men Type: BLOOD SPECIMEN Ordering Facility: [facility] Address: [address] [place] [address] Performed By: #### 1 6570-4, 45130-2, 75409-3, 45647-1, 77973-9, 34834-3, 26055-3, 29635-1 #### [facility] CLIA [id number] [address] [place] [address] [place] MCV (RBC) [Entitic vol] 87.3 fL Normal 80.0-100.0 [facility] Comment on above: Order Comment: Speci men Type: BLOOD SPECIMEN Ordering Facility: [facility] Address: [address] [place] [address] Performed By: #### 1 6570-4, 19223-3, 17607-1, 78882-0, 69587-7, 76391-8, 65770-9, 47189-5 #### [facility] CLIA [id number] [address] [place] [address] [place] Nucleated RBC (Bld) [#/Vol] 10*3/uL Normal <0.01 [facility] Comment on above: Order Comment: Speci men Type: BLOOD SPECIMEN Ordering Facility: [facility] Address: [address] [place], [place] [address] Performed By: #### 1 6570-4, 65692-6, 66998-7, 11638-0, 30629-3, 02665-6, 54903-0, 63036-7 #### [facility] CLIA [id number] [address] [place] [address] [place] Platelet mean volume (Bld) [Entitic vol] 10.3 fL Normal 9.0-12.7 [facility] Comment on above: Order Comment: Speci men Type: BLOOD SPECIMEN Ordering Facility: [facility] Address: [address] [place] [address] Performed By: #### 1 6570-4, 98028-5, 20829-3, 66170-5, 41477-3, 00115-8, 33355-9, 33121-0 #### [facility] CLIA [id number] [address] [place] [address] [place] Platelets (Bld) [#/Vol] 213 10*3/uL Normal 150-400 [facility] Comment on above: Order Comment: Speci men Type: BLOOD SPECIMEN Ordering Facility: [facility] Address: [address] [place] [address] Performed By: #### 1 6570-4, 31489-6, 54662-7, 30040-4, 95582-6, 56209-2, 07477-6, 10173-3 #### [facility] CLIA [id number] [address] [place] [address] [place] RBC (Bld) [#/Vol] 4.88 10*6/uL Normal 3.90-5.20 [facility] Comment on above: Order Comment: Speci men Type: BLOOD SPECIMEN Ordering Facility: [facility] Address: [address] [place] [address] Performed By: #### 1 6570-4, 00286-6, 36454-5, 53751-9, 55237-2, 60467-1, 33440-0, 09280-2 #### [facility] CLIA [id number] [address] [place] [address] [place] WBC (Bld) [#/Vol] 4.77 10*3/uL Normal 3.70-11.00 [facility] Comment on above: Order Comment: Speci men Type: BLOOD SPECIMEN Ordering Facility: [facility] Address: [address] [place] [address] Performed By: #### 1 6570-4, 26153-3, 94216-1, 78886-2, 68592-4, 19010-1, 89991-4, 51361-0 #### [facility] CLIA [id number] [address] [place] [address] [place] Erythrocyte distribution width (RBC) [Ratio] 12.1 % 11.5 - 15.0 % [facility] Hematocrit (Bld) [Volume fraction] 42.6 % 36.0 - 46.0 % [facility] Hemoglobin (Bld) [Mass/Vol] 13.8 g/dL 11.5 - 15.5 g/dL [facility] MCH (RBC) [Entitic mass] 28.3 pg 26.0 - 34.0 pg [facility] MCHC (RBC) [Mass/Vol] 32.4 g/dL 30.5 - 36.0 g/dL [facility] MCV (RBC) [Entitic vol] 87.3 fL 80.0 - 100.0 fL [facility] Nucleated RBC (Bld) [#/Vol] 10*3/uL <0.01 k/uL [facility] Platelet mean volume (Bld) [Entitic vol] 10.3 fL 9.0 - 12.7 fL [facility] Platelets (Bld) [#/Vol] 213 10*3/uL 150 - 400 k/uL [facility] RBC (Bld) [#/Vol] 4.88 10*6/uL 3.90 - 5.20 m/uL [facility] WBC (Bld) [#/Vol] 4.77 10*3/uL 3.70 - 11.00 k/uL [facility] CRP SerPl-ncon 01-25-2022 CRP [Mass/Vol] 0.4 mg/dL Normal <0.9 [facility] Comment on above: Order Comment: Jose Carlos [facility] Type: BLOOD SPECIMEN Ordering Facility: [facility] Address: [address] [place] [address] Performed By: #### 1 6570-4, 84059-1, 74173-6, 73343-7, 81386-0, 70755-5, 91166-2, 85750-9 #### [facility] CLIA [id number] [address] [place] [address] OF [facility] Centromere Ab IF Ql (S)on Centromere Ab Qn (S) <0.2 Normal <1.0 [facility] Comment on above: Order Comment: Jose Carlos oseguera Type: BLOOD SPECIMEN Ordering Facility: [facility] Address: [address] [place] [address] Result Comment: Anti -centromere antibody is used as in aid in diagnosis of systemic sclerosis. Clinical correlation is required. Test Methodology: Multiplex flow immunoassay. Performed By: #### 1 6570-4, 18136-9, 63729-0, 05994-1, 61879-8, 62654-6, 45033-4, 29003-6 #### [facility] CLIA [id number] [address] [place] [address] CENTROMERE AB QUAL Negative Normal Negative [facility] Comment on above: Order Comment: Speci men Type: BLOOD SPECIMEN Ordering Facility: [facility] Address: [address] [place] [address] Performed By: #### 1 6570-4, 07373-3, 95521-8, 36752-1, 81306-0, 90752-2, 97101-5, 91356-7 #### [facility] CLIA [id number] [address] [place] [address] [place] Chromatin Ab Qnon 01-25-2022 CHROMATIN AB QUAL Negative Normal Negative [facility] Comment on above: Order Comment: Speci men Type: BLOOD SPECIMEN Ordering Facility: [facility] Address: [address] [place] [address] Performed By: #### 1 6570-4, 11056-1, 86827-9, 33678-2, 67730-8, 02740-9, 18810-7, 48607-1 #### [facility] CLIA [id number] [address] [place] [address] [place] Chromatin Ab SerPl-aCncon Chromatin Ab Qn <0.2 Normal <1.0 [facility] Comment on above: Order Comment: Speci men Type: BLOOD SPECIMEN Ordering Facility: [facility] Address: [address] [place] [address] Result Comment: Test Methodology: Multiplex flow immunoassay. Performed By: #### 1 6570-4, 23525-6, 46047-2, 15956-8, 00133-6, 61830-2, 48304-7, 87738-5 #### [facility] CLIA [id number] [address] [place], [place] [address] OF [facility] Comprehensive metabolic 2000 panelon 01-25-2022 Albumin [Mass/Vol] 4.5 g/dL 3.9 - 4.9 g/dL [facility] ALP [Catalytic activity/Vol] 65 U/L 34 - 123 [facility] ALT [Catalytic activity/Vol] 14 U/L 7 - 38 [facility] Anion gap [Moles/Vol] 11 mmol/L 9 - 18 mmol/L [facility] AST [Catalytic activity/Vol] 14 U/L 13 - 35 U/L [facility] Bilirubin [Mass/Vol] 0.3 mg/dL 0.2 - 1 .3 mg/dL [facility] Calcium [Mass/Vol] 9.5 mg/dL 8.5 - 10. 2 mg/dL [facility] Chloride [Moles/Vol] 105 mmol/L 97 - 10 5 mmol/L [facility] CO2 [Moles/Vol] 26 mmol/L 22 - 30 mmol/L [facility] Creatinine [Mass/Vol] 0.71 mg/dL 0.58 - 0.96 mg/dL [facility] Estimated Glomerular Filtration Rate 125 mL/min/1.73m >=60 mL/min/1.7 3m [facility] Glucose [Mass/Vol] 94 mg/dL 74 - 99 mg/dL [facility] Potassium [Moles/Vol] 4.6 mmol/L 3.7 - 5.1 mmol/L [facility] Protein [Mass/Vol] 7.2 g/dL 6.3 - 8.0 g/dL [facility] Sodium [Moles/Vol] 142 mmol/L 136 - 144 mmol/L [facility] Urea nitrogen [Mass/Vol] 8 mg/dL 7 - 21 mg/dL [facility] Albumin [Mass/Vol] 4.5 g/dL Normal 3.9-4.9 [facility] Comment on above: Order Comment: Speci men Type: BLOOD SPECIMEN Ordering Facility: [facility] Address: [address] [place], [place] [address] Performed By: #### 1 6570-4, 65737-1, 27534-9, 44183-2, 80405-8, 74772-0, 37731-2, 30646-6 #### [facility] CLIA [id number] [address] [place] [address] [place] ALP [Catalytic activity/Vol] 65 U/L Normal 34-123 [facility] Comment on above: Order Comment: Speci men Type: BLOOD SPECIMEN Ordering Facility: [facility] Address: [address] [place] [address] Performed By: #### 1 6570-4, 35497-4, 92867-5, 99163-2, 02993-4, 19625-5, 54365-1, 71901-1 #### [facility] CLIA [id number] [address] [place] [address] [place] ALT [Catalytic activity/Vol] 14 U/L Normal 7-38 [facility] Comment on above: Order Comment: Speci men Type: BLOOD SPECIMEN Ordering Facility: [facility] Address: [address] [place] [address] Performed By: #### 1 6570-4, 53213-7, 07076-6, 36600-6, 56041-1, 13894-8, 41441-4, 27955-0 #### [facility] CLIA [id number] [address] [place] [address] [place] Anion gap [Moles/Vol] 11 mmol/L Normal 9-18 [facility] Comment on above: Order Comment: Speci men Type: BLOOD SPECIMEN Ordering Facility: [facility] Address: [address] [place] [address] Performed By: #### 1 6570-4, 52736-3, 38186-2, 12903-4, 56325-2, 45371-5, 39277-2, 15711-1 #### [facility] CLIA [id number] [address] [place] [address] [place] AST [Catalytic activity/Vol] 14 U/L Normal 13-35 [facility] Comment on above: Order Comment: Speci men Type: BLOOD SPECIMEN Ordering Facility: [facility] Address: [address] [place] [address] Performed By: #### 1 6570-4, 57470-2, 98440-4, 77019-4, 66115-6, 33843-7, 42875-3, 85425-3 #### [facility] CLIA [id number] [address] [place] [address] [place] Bilirubin [Mass/Vol] 0.3 mg/dL Normal 0.2-1.3 [facility] Comment on above: Order Comment: Speci men Type: BLOOD SPECIMEN Ordering Facility: [facility] Address: [address] [place] [address] Performed By: #### 1 6570-4, 68270-4, 70477-6, 16459-1, 33480-7, 33568-9, 58574-0, 27746-1 #### [facility] CLIA [id number] [address] [place] [address] [place] Calcium [Mass/Vol] 9.5 mg/dL Normal 8.5-10.2 [facility] Comment on above: Order Comment: Speci men Type: BLOOD SPECIMEN Ordering Facility: [facility] Address: [address] [place] [address] Performed By: #### 1 6570-4, 09628-7, 06024-4, 29777-0, 30637-8, 92964-7, 79755-4, 42787-6 #### [facility] CLIA [id number] [address] [place] [address] [place] Chloride [Moles/Vol] 105 mmol/L Normal 97-105 [facility] Comment on above: Order Comment: Speci men Type: BLOOD SPECIMEN Ordering Facility: [facility] Address: [address] [place] [address] Performed By: #### 1 6570-4, 90697-1, 10421-2, 09964-2, 81839-9, 11465-3, 86654-2, 62041-5 #### [facility] CLIA [id number] [address] [place] [address] [place] CO2 [Moles/Vol] 26 mmol/L Normal 22-30 [facility] Comment on above: Order Comment: Jose Carlos oseguera Type: BLOOD SPECIMEN Ordering Facility: [facility] Address: [address] [place] [address] Performed By: #### 1 6570-4, 31076-1, 35292-3, 66113-9, 74084-8, 30037-7, 32319-8, 85942-4 #### [facility] CLIA [id number] [address] [place] [address] [place] Creatinine [Mass/Vol] 0.71 mg/dL Normal 0.58-0.96 [facility] Comment on above: Order Comment: Jose Carlos men Type: BLOOD SPECIMEN Ordering Facility: [facility] Address: [address] [place] [address] Performed By: #### 1 6570-4, 57107-2, 28979-6, 61035-3, 38494-5, 79564-4, 20398-9, 68481-3 #### [facility] CLIA [id number] [address] [place] [address] [place] ESTIMATED GLOMERULAR FILTRATION RATE 125 mL/min/1.73m??? Normal >=60 [facility] Comment on above: Order Comment: Jose Carlos men Type: BLOOD SPECIMEN Ordering Facility: [facility] Address: [address] [place] [address] Result Comment: Francesca mated Glomerular Filtration Rate [...] actual GFR. Performed By: #### 1 6570-4, 59419-1, 50589-0, 53815-5, 93682-2, 26722-9, 39885-0, 47661-5 #### [facility] CLIA [id number] [address] [place] [address] [place] Glucose [Mass/Vol] 94 mg/dL Normal 74-99 [facility] Comment on above: Order Comment: Speci men Type: BLOOD SPECIMEN Ordering Facility: [facility] Address: [address] [place], [place] [address] Result Comment: The [place] [employer] (ADA) provides guidance for cutoff [...] Standards of Medical Care in Diabetes 2016, [place] [employer]. Diabetes Care. 2016.39(Suppl 1). Performed By: #### 1 6570-4, 50078-9, 93232-7, 05888-6, 42896-0, 97653-9, 39014-3, 12228-9 #### [facility] CLIA [id number] [address] [place] [address] [place] Potassium [Moles/Vol] 4.6 mmol/L Normal 3.7-5.1 [facility] Comment on above: Order Comment: Horacioi men Type: BLOOD SPECIMEN Ordering Facility: [facility] Address: [address] [place] [address] Performed By: #### 1 6570-4, 76527-7, 39374-3, 98959-3, 69274-5, 88881-0, 76287-9, 84827-4 #### [facility] CLIA [id number] [address] [place] [address] [place] Protein [Mass/Vol] 7.2 g/dL Normal 6.3-8.0 [facility] Comment on above: Order Comment: Speci men Type: BLOOD SPECIMEN Ordering Facility: [facility] Address: [address] [place] [address] Performed By: #### 1 6570-4, 97766-8, 56572-0, 74098-9, 45095-7, 46777-6, 71121-7, 34305-5 #### [facility] CLIA [id number] [address] [place] [address] [place] Sodium [Moles/Vol] 142 mmol/L Normal 136-144 [facility] Comment on above: Order Comment: Speci men Type: BLOOD SPECIMEN Ordering Facility: [facility] Address: [address] [place] [address] Performed By: #### 1 6570-4, 27492-0, 42914-6, 12053-2, 32215-9, 68035-9, 37003-2, 28993-5 #### [facility] CLIA [id number] [address] [place] [address] [place] Urea nitrogen [Mass/Vol] 8 mg/dL Normal 7-21 [facility] Comment on above: Order Comment: Speci men Type: BLOOD SPECIMEN Ordering Facility: [facility] Address: [address] [place] [address] Performed By: #### 1 6570-4, 02561-8, 85187-5, 13021-7, 38599-8, 96493-5, 21270-8, 82703-9 #### [facility] CLIA [id number] [address] [place] [address] [place] Cyclic citrullinated peptide IgG Qnon 01-25-2022 CCP ANTIBODY IGG QUALITATIVE Negative Normal Negative [facility] Comment on above: Order Comment: Speci men Type: BLOOD SPECIMEN Ordering Facility: [facility] Address: [address] [place] [address] Performed By: #### 1 6570-4, 88214-7, 03205-7, 65902-3, 78578-0, 54089-6, 21511-4, 62923-3 #### [facility] CLIA [id number] [address] [place] [address] [place] JASON Jo1 Ab Ser-aCncon 2021 Yuly-1 extractable nuclear Ab Qn (S) <0.2 Normal <1.0 [facility] Comment on above: Order Comment: Speci men Type: BLOOD SPECIMEN Ordering Facility: [facility] Address: [address] [place] [address] Performed By: #### 1 6570-4, 11996-1, 42129-1, 10373-5, 29686-9, 39293-5, 11190-5, 84634-5 #### [facility] CLIA [id number] [address] [place] [address] [place] CLINICAL STAFF EDUCATOR Ab Ser-aCncon 2021 Ribonucleoprotein extractable nuclear Ab Qn (S) <0.2 Normal <1.0 [facility] Comment on above: Order Comment: Speci men Type: BLOOD SPECIMEN Ordering Facility: [facility] Address: [address] [place] [address] Performed By: #### 1 6570-4, 93070-3, 59740-7, 75770-3, 37282-0, 63659-3, 59641-6, 21038-5 #### [facility] CLIA [id number] [address] [place] [address] [place] JASON SM IgG Ser-aCncon 2021 Cota extractable nuclear IgG Qn (S) <0.2 Normal <1.0 [facility] Comment on above: Order Comment: Speci men Type: BLOOD SPECIMEN Ordering Facility: [facility] Address: [address] [place], [place] [address] Performed By: #### 1 6570-4, 54775-2, 42610-6, 04349-4, 02926-5, 18246-8, 69141-5, 11076-9 #### [facility] CLIA [id number] [address] [place] [address] [place] SS-A Ab Ser-aCncon 01-25 Sjogrens syndrome-A extractable nuclear Ab Qn (S) <0.2 Normal <1.0 [facility] Comment on above: Order Comment: Speci men Type: BLOOD SPECIMEN Ordering Facility: [facility] Address: [address] [place] [address] Result Comment: Test Methodology: Multiplex flow immunoassay. Performed By: #### 1 6570-4, 64352-8, 56696-4, 63769-3, 00815-9, 93099-1, 72365-4, 95560-0 #### [facility] CLIA [id number] [address] [place] [address] JASON SS-B Ab Ser-aCncon 01-25 Sjogrens syndrome-B extractable nuclear Ab Qn (S) <0.2 Normal <1.0 [facility] Comment on above: Order Comment: Speci men Type: BLOOD SPECIMEN Ordering Facility: [facility] Address: [address] [place] [address] Result Comment: Anti -SSB (anti-La) antibody is used as an aid in diagnosis of a variety of systemic autoimmune diseases, especially for Sjogren's syndrome and systemic lupus erythematosus. Clinical correlation is required. Test Methodology: Multiplex flow immunoassay. Performed By: #### 1 6570-4, 78293-8, 23238-1, 11253-2, 54423-1, 31751-2, 14315-5, 57539-9 #### [facility] CLIA [id number] [address] [place] [address] [place] ESR Westergren method (Bld) [Velocity]on 01-25-2022 ESR (Bld) [Velocity] 2 mm/h 0 - 20 mm/hr [facility] ESR (Bld) [Velocity] 2 mm/h Normal 0-20 [facility] Comment on above: Order Comment: Speci men Type: BLOOD SPECIMEN Ordering Facility: [facility] Address: [address] [place] [address] Performed By: #### 1 6570-4, 36497-6, 97360-9, 77231-1, 38400-8, 23784-9, 33214-8, 29570-6 #### [facility] CLIA [id number] [address] [place] [address] [place] HBV core Ab Ser Qlon 022 HBV core Ab Ql (S) Negative Normal Negative [facility] Comment on above: Order Comment: Speci men Type: BLOOD SPECIMEN Ordering Facility: [facility] Address: [address] [place] [address] Result Comment: No e vidence of current or past infection with Hepatitis B virus. Should recent infection be suspected, repeat testing may be considered 3-4 weeks after this draw. Performed By: #### 1 6570-4, 73322-4, 12786-4, 58889-1, 95691-9, 04536-0, 81031-7, 88772-7 #### [facility] CLIA [id number] [address] [place] [address] [place] HBV surface Ab IA Ql (S)on 0 01-25-2022 HBV surface Ag Ql (S) Negative Normal Negative [facility] Comment on above: Order Comment: Speci men Type: BLOOD SPECIMEN Ordering Facility: [facility] Address: [address] [place] [address] Performed By: #### 1 6570-4, 15574-2, 10037-7, 17692-6, 60689-5, 88132-5, 96719-1, 93904-2 #### [facility] CLIA [id number] [address] [place] [address] [place] HBV surface Ab Ser Qlon 05- HBV surface Ab Ql (S) Negative Normal Negative [facility] Comment on above: Order Comment: Jose Carlos oseguera Type: BLOOD SPECIMEN Ordering Facility: [facility] Address: [address] [place] [address] Result Comment: No e vidence of current or past infection with Hepatitis B virus. Should recent infection be suspected, repeat testing may be considered 3-4 weeks after this draw. Performed By: #### 1 6570-4, 91562-9, 86902-4, 45122-5, 62126-0, 09364-9, 96444-4, 10707-2 #### [facility] CLIA [id number] [address] [place] [address] [place] HCV Ab Ser Qlon 01-25-2022 HCV Ab Ql (S) Negative Normal Negative [facility] Comment on above: Order Comment: Jose Carlos oseguera Type: BLOOD SPECIMEN Ordering Facility: [facility] Address: [address] [place] [address] Result Comment: The result suggests no evidence of active infection with Hepatitis C virus. Should recent infection be suspected, repeat testing may be considered 4-6 weeks after this draw. Performed By: #### 1 6570-4, 37546-6, 91607-5, 26479-2, 94693-9, 00717-4, 18618-1, 24798-6 #### [facility] CLIA [id number] [address] [place] [address] [place] Yuly-1 extractable nuclear Ab Qn (S)on 01-25-2022 YULY 1 ANTIBODY QUAL Negative Normal Negative [facility] Comment on above: Order Comment: Jose Carlos oseguera Type: BLOOD SPECIMEN Ordering Facility: [facility] Address: [address] [place] [address] Result Comment: Anti -YULY-1 antibody is used as an aid in diagnosis of polymyositis and dermatomyositis especially with pulmonary involvement. A negative result cannot rule out polymyositis or dermatomyositis. Clinical correlation is required. Test Methodology: Multiplex flow immunoassay. Performed By: #### 1 6570-4, 10470-8, 95944-4, 73985-4, 99798-0, 17261-3, 60388-3, 75581-7 #### [facility] CLIA [id number] [address] [place] [address] [place] Nuclear Ab IA Ql (S)on 01-25 ARMAN[facility] BY EIA, QUAL Negative Normal Negative [facility] Comment on above: Order Comment: Jose Carlos oseguera Type: BLOOD SPECIMEN Ordering Facility: [facility] Address: [address] [place] [address] Result Comment: The qualitative antinuclear antibody screen test performed using enzyme immunoassay including the following antigens: dsDNA, histones, SS-A, SS-B, Sm, Sm/CLINICAL STAFF EDUCATOR, Scl-70, Yuly-1, and centromeric antigens. Performed By: #### 1 6570-4, 64045-4, 58368-4, 05337-3, 89821-4, 89083-3, 78783-6, 06972-6 #### [facility] CLIA [id number] [address] [place] [address] [place] RHEUMATOID FACTOR BLon 01-25 Rheumatoid factor Qn [IU]/mL <16 IU/mL [facility] Rheumatoid factor Qn [IU]/mL Normal <16 [facility] Comment on above: Order Comment: Jose Carlos oseguera Type: BLOOD SPECIMEN Ordering Facility: [facility] Address: [address] [place] [address] Performed By: #### 1 6570-4, 57914-5, 30975-2, 86725-3, 68298-1, 59910-8, 44888-0, 05394-2 #### [facility] CLIA [id number] [address] [place] [address] [place] Ribonucleoprotein extractabl e nuclear Ab Qn (S)on 01-25-2022 ANTI-CLINICAL STAFF EDUCATOR QUAL Negative Normal Negative [facility]: Order Comment: Speci men Type: BLOOD SPECIMEN Ordering Facility: [facility] Address: [address] [place] [address] Performed By: #### 1 6570-4, 68876-2, 25835-3, 80255-1, 19007-3, 07604-1, 31259-4, 99419-5 #### [facility] CLIA [id number] [address] [place] [address] [place] RIBOSOMAL CLINICAL STAFF EDUCATOR QUAL Negative Normal Negative [facility] Comment on above: Order Comment: [facility] Type: BLOOD SPECIMEN Ordering Facility: [facility] Address: [address] [place] [address] Result Comment: Anti -Ribosomal RNA (Ribosomal P) antibody is used as an aid in diagnosis of systemic autoimmune diseases especially systemic lupus erythematosus and mixed connective tissue disease. Cross-reactivity with Anti-cota antibody is not uncommon. Clinical correlation is required. Test Methodology: Multiplex flow immunoassay. Performed By: #### 1 6570-4, 44926-4, 75579-0, 60229-6, 98835-6, 14907-4, 07369-5, 05866-6 #### [facility] CLIA [id number] [address] [place] [address] [place] SCL-70 extractable nuclear I gG IA Qn (S)on 01-25-2022 SCLERODERMA AB QUAL Negative Normal Negative [facility] Comment on above: Order Comment: Horacioi men Type: BLOOD SPECIMEN Ordering Facility: [facility] Address: [address] [place] [address] Performed By: #### 1 6570-4, 62229-4, 60293-2, 39839-4, 10531-6, 62232-2, 16380-5, 84140-6 #### [facility] CLIA [id number] [address] [place] [address] [place] SCLERODERMA IGG AB <0.2 Normal <1.0 [facility] Comment on above: Order Comment: Speci men Type: BLOOD SPECIMEN Ordering Facility: [facility] Address: [address] [place] [address] Result Comment: Scl- 70/Scleroderma antibody test is used as an aid in diagnosis of systemic sclerosis especially the diffuse cutaneous form. A negative result cannot rule out systemic sclerosis. The final interpretation should consider clinical picture and other test results such as anti-centromere antibody. Test Methodology: Multiplex flow immunoassay. Performed By: #### 1 6570-4, 75595-9, 43501-9, 17507-8, 17908-9, 79361-8, 17449-0, 07329-3 #### [facility] CLIA [id number] [address] [place] [address] [place] Sjogrens syndrome-A extracta ble nuclear Ab Qn (S)on 01-25-2022 SSA ANTIBODY QUAL Negative Normal Negative Rosemary dick[facility] Comment on above: Order Comment: Speci men Type: BLOOD SPECIMEN Ordering Facility: [facility] Address: [address] [place] [address] Performed By: #### 1 6570-4, 51662-2, 03575-3, 37770-6, 58802-0, 59544-8, 65143-7, 98092-4 #### [facility] CLIA [id number] [address] [place] [address] [place] Sjogrens syndrome-B extracta ble nuclear Ab Qn (S)on 01-25-2022 SSB ANTIBODY QUAL Negative Normal Negative Rosemary dickinson Comment on above: Order Comment: Speci men Type: BLOOD SPECIMEN Ordering Facility: [facility] Address: [address] [place] [address] Performed By: #### 1 6570-4, 71259-1, 93104-9, 54000-3, 37244-4, 43466-5, 64718-2, 37086-8 #### [facility] CLIA [id number] [address] [place] [address] [place] Cota extractable nuclear Ig G Qn (S)on 01-25-2022 SM ANTIBODY QUAL Negative Normal Negative [facility] Comment on above: Order Comment: Jose Carlos oseguera Type: BLOOD SPECIMEN Ordering Facility: [facility] Address: [address] [place] [address] Result Comment: Anti -Sm (Cota) antibody is used as an aid in diagnosis of systemic lupus erythematosus and its presence is associated with renal disease. A negative result cannot rule out systemic lupus erythematosus. Clinical correlation is required. Test Methodology: Multiplex flow immunoassay. Performed By: #### 1 6570-4, 85644-8, 83394-7, 72479-6, 36405-9, 34408-6, 94316-1, 71952-6 #### [facility] CLIA [id number] [address] [place] [address] [place] cCP IgG SerPl-aCncon 022 Cyclic citrullinated peptide IgG Qn <15 Normal <20 [facility] Comment on above: Order Comment: Jose Carlos oseguera Type: BLOOD SPECIMEN Ordering Facility: [facility] Address: [address] [place] [address] Performed By: #### 1 6570-4, 70875-0, 53814-1, 02900-4, 23778-4, 83527-5, 68248-7, 07456-9 #### [facility] CLIA [id number] [address] [place] [address] [place] XR ankle LT min 3V*on 2021 XR ankle LT min 3V* [facility] [employer] Other XR ankle LT min 3V* [facility] [employer] Other XR ankle LT min 3V* [address] [place] [address] [employer] Other XR ankle LT min 3V* [place] [address] [employer] Other XR ankle LT min 3V* XRay Report [facility] [employer] Other XR ankle LT min 3V* Signed [employer] Other XR ankle LT min 3V* Patient: aMdyson Schmid MR#: [id number] [employer] Other XR ankle LT min 3V* : 2000 Acct:[id number] [employer] Other XR ankle LT min 3V* Age/Sex: 20 / F ADM Date: 10/10/21 [employer] Other XR ankle LT min 3V* Loc: XDUCLY Room: pe: [facility] CLI [employer] Other XR ankle LT min 3V* Attending Dr: Christina GONZALEZ [employer] Other XR ankle LT min 3V* Ordering Provider: CARLOS Santos [employer] Other XR ankle LT min 3V* Date of Service: 10/10/21 [employer] Other XR ankle LT min 3V* XR/XR ankle LT min 3V*: Acute left ankle pain [employer] Other XR ankle LT min 3V* Copies to: CARLOS Beckman [employer] Other XR ankle LT min 3V* Left ankle 10/10/2021. [employer] Other XR ankle LT min 3V* CLINICAL DATA: Left ankle pain after twisting injury. [employer] Other XR ankle LT min 3V* FINDINGS: 3 views of the left ankle were obtained. [employer] Other XR ankle LT min 3V* No acute fracture or dislocation is identified. No other bony abnormality is seen. Anterolateral [employer] Other XR ankle LT min 3V* soft tissue swelling is noted. [employer] Other XR ankle LT min 3V* X R/XR ankle LT min 3V* [employer] Other XR ankle LT min 3V* IMPRESSION: Soft tis cody swelling. No acute bony abnormality. [employer] Other XR ankle LT min 3V* Impression dictated by: Erick Cueto Jr., M.D.10/10/2021 4:24 PM [employer] Other XR ankle LT min 3V* Dictation Location: [address] [employer] Other XR ankle LT min 3V* Transcribed By: MIRELLA 10/10/21 [facility] [employer] Other XR ankle LT min 3V* Dictated By: Erick Cueto Jr, MD 10/10/21 [facility] [employer] Other XR ankle LT min 3V* Signed By: [employer] Other XR ankle LT min 3V* 10/10/21 1624 No rt [employer] Other Vital Signs Date Time Vital Sign Value Performing Clinician Facility 11-10-2024 09:08-0500 Body mass index (BMI) [Ratio] 38.94 kg/m2 Osei Helena DO Work Phone: [facility] 11-10-2024 09:08-0500 Body weight 106.14 kg Soei Helena DO Work Phone: [facility] 11-10-2024 09:08-0500 Diastolic blood pressure 70 mm[Hg] Osei Helena DO Work Phone: [facility] 11-10-2024 09:08-0500 Systolic blood pressure 130 mm[Hg] Osei Helena DO Work Phone: [facility] 10-29-2024 16:23-0500 Body mass index (BMI) [Ratio] 38.27 kg/m2 Osei Helena DO Work Phone: [facility] 10-29-2024 16:23-0500 Body weight 104.33 kg Osei Helena DO Work Phone: [facility] 10-29-2024 16:23-0500 Diastolic blood pressure 68 mm[Hg] Osei Helena DO Work Phone: [facility] 10-29-2024 16:23-0500 Systolic blood pressure 112 mm[Hg] Osei Helena DO Work Phone: [facility] 10-15-2024 16:11-0500 Body mass index (BMI) [Ratio] 38.94 kg/m2 Osei Helena DO Work Phone: [facility] 10-15-2024 16:11-0500 Body weight 106.14 kg Osei Helena DO Work Phone: [facility] 10-15-2024 16:11-0500 Diastolic blood pressure 64 mm[Hg] Osei Helena DO Work Phone: [facility] 10-15-2024 16:11-0500 Systolic blood pressure 118 mm[Hg] Osei Helena DO Work Phone: [facility] 10-02-2024 11:43-0500 Body mass index (BMI) [Ratio] 38.44 kg/m2 Osei Helena DO Work Phone: [facility] 10-02-2024 11:43-0500 Body weight 104.78 kg Osei Helena DO Work Phone: [facility] 10-02-2024 11:43-0500 Diastolic blood pressure 72 mm[Hg] Osei Helena DO Work Phone: [facility] 10-02-2024 11:43-0500 Systolic blood pressure 118 mm[Hg] Osei Helena DO Work Phone: [facility] 09-18-2024 10:52-0500 Body mass index (BMI) [Ratio] 38.74 kg/m2 Osei Helena DO Work Phone: [facility] 09-18-2024 10:52-0500 Body weight 105.6 kg Osei Helena DO Work Phone: [facility] 09-18-2024 10:52-0500 Diastolic blood pressure 68 mm[Hg] Osei Helena DO Work Phone: [facility] 09-18-2024 10:52-0500 Systolic blood pressure 118 mm[Hg] Osei Helena DO Work Phone: [facility] 09-03-2024 15:21-0500 Body mass index (BMI) [Ratio] 37.44 kg/m2 Osei Helena DO Work Phone: [facility] 09-03-2024 15:21-0500 Body weight 102.06 kg Osei Helena DO Work Phone: [facility] 09-03-2024 15:21-0500 Diastolic blood pressure 68 mm[Hg] Osei Helena DO Work Phone: [facility] 09-03-2024 15:21-0500 Systolic blood pressure 120 mm[Hg] Osei Helena DO Work Phone: [facility] 08-27-2024 13:08-0500 Body height 165.1 cm Camilla Hemmer PA Work Phone: [facility] 08-27-2024 13:08-0500 Body mass index (BMI) [Ratio] 38.11 kg/m2 Camilla Hemmer PA Work Phone: [facility] 08-27-2024 13:08-0500 Body weight 103.87 kg Camilla Hemmer PA Work Phone: [facility] 08-27-2024 13:08-0500 Diastolic blood pressure 72 mm[Hg] Camilla Hemmer PA Work Phone: [facility] 08-27-2024 13:08-0500 Heart rate 92 /min Camilla Hemmer PA Work Phone: [facility] 08-27-2024 13:08-0500 Respiratory rate 16 /min Camilla Hemmer PA Work Phone: [facility] 08-27-2024 13:08-0500 SaO2% (BldA) [Mass fraction] 98 % Camilla Garcia PA Work Phone: [facility] 08-27-2024 13:08-0500 Systolic blood pressure 118 mm[Hg] Camilla Garcia PA Work Phone: [facility] 08-13-2024 09:22-0500 Body height 165.1 cm Hammad Hatch MD Work Phone: [facility] 08-13-2024 09:22-0500 Body mass index (BMI) [Ratio] 36.91 kg/m2 Hammad Hatch MD Work Phone: [facility] 08-13-2024 09:22-0500 Body weight 100.61 kg Hammad Hatch MD Work Phone: [facility] 08-05-2024 09:05-0500 Body mass index (BMI) [Ratio] 36.44 kg/m2 Flori Cardinal PA Work Phone: [facility] 08-05-2024 09:05-0500 Body weight 99.34 kg Flori Cardinal PA Work Phone: [facility] 08-05-2024 09:05-0500 Diastolic blood pressure 68 mm[Hg] Flori Louise PA Work Phone: [facility] 08-05-2024 09:05-0500 Systolic blood pressure 110 mm[Hg] Flori Louise PA Work Phone: [facility] 07-03-2024 14:41-0400 Body mass index (BMI) [Ratio] 35.65 kg/m2 Flori Cardinal PA Work Phone: [facility] 07-03-2024 14:41-0400 Body weight 97.18 kg Flori Louise PA Work Phone: [facility] 07-03-2024 14:41-0400 Diastolic blood pressure 64 mm[Hg] Flori Cardinal PA Work Phone: [facility] 07-03-2024 14:41-0400 Systolic blood pressure 116 mm[Hg] Flori Gil PA Work Phone: [facility] 06-04-2024 15:53-0400 Body mass index (BMI) [Ratio] 35.36 kg/m2 Osei Helena DO Work Phone: [facility] 06-04-2024 15:53-0400 Body weight 96.39 kg Osei Helena DO Work Phone: [facility] 06-04-2024 15:53-0400 Diastolic blood pressure 70 mm[Hg] Osei Helena DO Work Phone: [facility] 06-04-2024 15:53-0400 Systolic blood pressure 126 mm[Hg] Osei Helena DO Work Phone: [facility] 05-23-2024 09:35-0400 Body mass index (BMI) [Ratio] 35.01 kg/m2 [facility] 05-23-2024 09:35-0400 Body weight 95.44 kg [facility] Nurse [facility] 05-20-2024 09:37-0400 Body height 165.1 cm Camilla Hemmer PA Work Phone: [facility] 05-20-2024 09:37-0400 Body mass index (BMI) [Ratio] 34.98 kg/m2 Camilla Hemmer PA Work Phone: [facility] 05-20-2024 09:37-0400 Body weight 95.35 kg Camilla Hemmer PA Work Phone: [facility] 05-20-2024 09:37-0400 Diastolic blood pressure 76 mm[Hg] Camilla Hemmer PA Work Phone: [facility] 05-20-2024 09:37-0400 Heart rate 87 /min Camilla Hemmer PA Work Phone: [facility] 05-20-2024 09:37-0400 Respiratory rate 16 /min Camilla Hemmer PA Work Phone: [facility] 05-20-2024 09:37-0400 SaO2% (BldA) [Mass fraction] 98 % Camilla Garcia PA Work Phone: [facility] 05-20-2024 09:37-0400 Systolic blood pressure 108 mm[Hg] Camilla Radha PA Work Phone: [facility] 11-30-2023 09:33-0500 Body height 165.1 cm Jyoti Gallowayur PA-C Work Phone: [facility] 11-30-2023 09:33-0500 Body weight 92.99 kg Jyoti Noble PA-C Work Phone: [facility] 11-30-2023 09:33-0500 Diastolic blood pressure 79 mm[Hg] Jyoti Noble PA-C Work Phone: [facility] 11-30-2023 09:33-0500 Heart rate 84 /min Jyoti Gallowayur PA-C Work Phone: [facility] 11-30-2023 09:33-0500 SaO2% (BldA) [Mass fraction] 96 % Jyoti Noble PA-C Work Phone: [facility] 11-30-2023 09:33-0500 Systolic blood pressure 118 mm[Hg] Jyoti Noble PA-C Work Phone: [facility] 06-13-2023 12:36-0400 Body height 165.1 cm Ibis Limer [facility] [employer] 600 DO Work Phone: 06-13-2023 12:36-0400 Body mass index (BMI) [Ratio] 33.28 kg/m2 Ibis Ellis Myra Work Phone: [facility] [employer] 600 DO Work Phone: 06-13-2023 12:36-0400 Body surface area Derived from formula 1.98 m2 Ibis Ellis Myra Work Phone: [facility] [employer] 600 DO Work Phone: 06-13-2023 12:36-0400 Body weight 90.72 kg Ibis A Myra [facility] Work Phone: 06-13-2023 12:36-0400 Diastolic blood pressure 80 mm[Hg] [facility]bis [facility] Work Phone: 06-13-2023 12:36-0400 Heart rate 76 /min Ibis A Myra [facility] 600 DO Work Phone: 06-13-2023 12:36-0400 Systolic blood pressure 116 mm[Hg] Ibis A Myra [facility] 600 DO Work Phone: 06-08-2023 21:50-0400 Diastolic blood pressure 59 mm[Hg] FASTENER SEWING MACHINE OPERATOR-C Ibis Myra Work Phone: [facility] 06-08-2023 21:50-0400 Heart rate 82 /min FASTENER SEWING MACHINE OPERATOR-C Ibis Myra Work Phone: [facility] 06-08-2023 21:50-0400 Respiratory rate 18 /min FASTENER SEWING MACHINE OPERATOR-C Ibis Myra Work Phone: [facility] 06-08-2023 21:50-0400 SaO2% (BldA) [Mass fraction] 99 % FASTENER SEWING MACHINE OPERATOR-C Ibis Myra Work Phone: [facility] 06-08-2023 21:50-0400 Systolic blood pressure 115 mm[Hg] FASTENER SEWING MACHINE OPERATOR-C Ibis Myra Work Phone: [facility] 06-08-2023 16:35-0400 Body height 165.1 cm FASTENER SEWING MACHINE OPERATOR-C Ibis Myra Work Phone: [facility] 06-08-2023 16:35-0400 Body temperature 97.8 [degF] FASTENER SEWING MACHINE OPERATOR-C Ibis Myra Work Phone: [facility] 06-08-2023 16:35-0400 Body weight 91.6 kg FASTENER SEWING MACHINE OPERATOR-C Ibis Myra Work Phone: [facility] 12-28-2022 15:00-0400 Body weight 89.36 kg Irvin Hanna MD Work Phone: [facility] 12-28-2022 15:00-0400 Diastolic blood pressure 86 mm[Hg] Irvin Hanna MD Work Phone: [facility] 12-28-2022 15:00-0400 Heart rate 79 /min Irvin Hanna MD Work Phone: [facility] 12-28-2022 15:00-0400 Respiratory rate 16 /min Irvin Hanna MD Work Phone: [facility] 12-28-2022 15:00-0400 Systolic blood pressure 119 mm[Hg] Irvin Hanna MD Work Phone: [facility] 10-13-2022 09:35-0500 Body height 165.1 cm Ibis Rhonda Myra Work Phone: [facility] 320 DO Work Phone: 10-13-2022 09:35-0500 Body mass index (BMI) [Ratio] 33.45 kg/m2 Ibis A Myra Work Phone: [facility] 320 DO Work Phone: 10-13-2022 09:35-0500 Body surface area Derived from formula 1.98 m2 Ibis A Myra Work Phone: [facility] 320 DO Work Phone: 10-13-2022 09:35-0500 Body weight 91.17 kg Ibis Rhonda Myra Work Phone: [facility] 320 DO Work Phone: 10-13-2022 09:35-0500 Diastolic blood pressure 70 mm[Hg] Ibis A Myra Work Phone: [facility] 320 DO Work Phone: 10-13-2022 09:35-0500 Heart rate 76 /min Ibis A Myra Work Phone: [facility] 320 DO Work Phone: 10-13-2022 09:35-0500 Systolic blood pressure 102 mm[Hg] Ibis A Myra Work Phone: [facility] 320 DO Work Phone: 09-11-2022 09:58-0500 Diastolic blood pressure 82 mm[Hg] Ibis A Myra Work Phone: [facility] [place] 250 DO Work Phone: 09-11-2022 09:58-0500 Diastolic blood pressure 80 mm[Hg] Ibis A Myra Work Phone: [facility] 250 DO Work Phone: 09-11-2022 09:58-0500 Systolic blood pressure 112 mm[Hg] Ibis A Myra Work Phone: [facility] 250 DO Work Phone: 09-11-2022 09:58-0500 Systolic blood pressure 108 mm[Hg] Ibis A Myra Work Phone: [facility] 250 DO Work Phone: 09-11-2022 08:57-0500 Body height 165.1 cm Ibis A Myra Work Phone: [facility] 250 DO Work Phone: 09-11-2022 08:57-0500 Body mass index (BMI) [Ratio] 32.95 kg/m2 Ibis A Myra Work Phone: [facility] 250 DO Work Phone: 09-11-2022 08:57-0500 Body surface area Derived from formula 1.97 m2 Ibis A Myra Work Phone: [facility] 250 DO Work Phone: 09-11-2022 08:57-0500 Body weight 89.81 kg Ibis A Myra Work Phone: [facility] 250 DO Work Phone: 09-11-2022 08:57-0500 Diastolic blood pressure 68 mm[Hg] Ibis A Myra Work Phone: [facility] 250 DO Work Phone: 09-11-2022 08:57-0500 Heart rate 74 /min Ibis A Myra Work Phone: [facility] 250 DO Work Phone: 09-11-2022 08:57-0500 Systolic blood pressure 102 mm[Hg] Ibis A Myra Work Phone: [facility] 250 DO Work Phone: 07-31-2022 10:14-0500 Body weight 89.81 kg Irvin Hanna MD Work Phone: [facility] 07-31-2022 10:14-0500 Diastolic blood pressure 71 mm[Hg] Irvin Hanna MD Work Phone: [facility] 07-31-2022 10:14-0500 Heart rate 92 /min Irvin Hanna MD Work Phone: [facility] 07-31-2022 10:14-0500 Systolic blood pressure 109 mm[Hg] Irvin Hanna MD Work Phone: [facility] 07-21-2022 07:27-0400 Body height 165.1 cm Ibis A Myra Work Phone: [facility] 320 DO Work Phone: 07-21-2022 07:27-0400 Body mass index (BMI) [Ratio] 33.45 kg/m2 Ibis A Myra Work Phone: [facility] 320 DO Work Phone: 07-21-2022 07:27-0400 Body surface area Derived from formula 1.98 m2 Ibis A Myra Work Phone: [facility] 320 DO Work Phone: 07-21-2022 07:27-0400 Body weight 91.17 kg Ibis A Myra Work Phone: [facility] 320 DO Work Phone: 07-21-2022 07:27-0400 Diastolic blood pressure 72 mm[Hg] Ibis A Myra Work Phone: [facility] 320 DO Work Phone: 07-21-2022 07:27-0400 Heart rate 64 /min Ibis A Myra Work Phone: [facility] 320 DO Work Phone: 07-21-2022 07:27-0400 Systolic blood pressure 106 mm[Hg] Ibis A Myra Work Phone: [facility] 320 DO Work Phone: 07-10-2022 10:45-0400 Body height 165.1 cm Ibis A Myra Work Phone: [facility] 250 DO Work Phone: 07-10-2022 10:45-0400 Body mass index (BMI) [Ratio] 32.95 kg/m2 Ibis A Myra Work Phone: [facility] 250 DO Work Phone: 07-10-2022 10:45-0400 Body surface area Derived from formula 1.97 m2 Ibis A Myra Work Phone: [facility] 250 DO Work Phone: 07-10-2022 10:45-0400 Body weight 89.81 kg Ibis A Myra Work Phone: [facility] 250 DO Work Phone: 07-10-2022 10:45-0400 Diastolic blood pressure 70 mm[Hg] Ibis A Myra Work Phone: [facility] 250 DO Work Phone: 07-10-2022 10:45-0400 Heart rate 76 /min Ibis A Myra Work Phone: [facility] 250 DO Work Phone: 07-10-2022 10:45-0400 Systolic blood pressure 104 mm[Hg] Ibis A Myra Work Phone: [facility] 250 DO Work Phone: 06-01-2022 11:36-0400 Body height 165.1 cm FASTENER SEWING MACHINE OPERATOR-C Ibis Myra Work Phone: [facility] 06-01-2022 11:36-0400 Body temperature 100 [degF] FASTENER SEWING MACHINE OPERATOR-C Ibis Myra Work Phone: [facility] 06-01-2022 11:36-0400 Body weight 88.4 kg FASTENER SEWING MACHINE OPERATOR-C Ibis Myar Work Phone: [facility] 06-01-2022 11:36-0400 Diastolic blood pressure 68 mm[Hg] FASTENER SEWING MACHINE OPERATOR-C Ibis Myra Work Phone: [facility] 06-01-2022 11:36-0400 Heart rate 99 /min FASTENER SEWING MACHINE OPERATOR-C Ibis Myra Work Phone: [facility] 06-01-2022 11:36-0400 Respiratory rate 18 /min FASTENER SEWING MACHINE OPERATOR-C Ibis Myra Work Phone: [facility] 06-01-2022 11:36-0400 SaO2% (BldA) [Mass fraction] 97 % FASTENER SEWING MACHINE OPERATOR-C Ibis Myra Work Phone: [facility] 06-01-2022 11:36-0400 Systolic blood pressure 121 mm[Hg] FASTENER SEWING MACHINE OPERATOR-C Ibis Myra Work Phone: [facility] 05-18-2022 09:42-0400 Body height 165.1 cm Ibis A Myra Work Phone: [facility] 250 DO Work Phone: 05-18-2022 09:42-0400 Body mass index (BMI) [Ratio] 31.95 kg/m2 Ibis A Myra Work Phone: [facility] 250 DO Work Phone: 05-18-2022 09:42-0400 Body surface area Derived from formula 1.94 m2 Ibis A Myra Work Phone: [facility] 250 DO Work Phone: 05-18-2022 09:42-0400 Body weight 87.09 kg Ibis A Myra Work Phone: [facility] 250 DO Work Phone: 05-18-2022 09:42-0400 Diastolic blood pressure 74 mm[Hg] Ibis A Myra Work Phone: [facility] 250 DO Work Phone: 05-18-2022 09:42-0400 Heart rate 72 /min Ibis A Myra Work Phone: [facility] 250 DO Work Phone: 05-18-2022 09:42-0400 Systolic blood pressure 102 mm[Hg] Ibis A Myra Work Phone: [facility] 250 DO Work Phone: 03-23-2022 09:11-0400 Diastolic blood pressure 80 mm[Hg] Ibis A Myra Work Phone: [facility] 250 DO Work Phone: 03-23-2022 09:11-0400 Systolic blood pressure 110 mm[Hg] Ibis A Myra Work Phone: [facility] 250 DO Work Phone: 03-23-2022 09:06-0400 Body height 166.37 cm Ibis Ellis Myra Work Phone: [facility] 250 DO Work Phone: 03-23-2022 09:06-0400 Body mass index (BMI) [Ratio] 31.3 kg/m2 Ibis A Myra Work Phone: [facility] 250 DO Work Phone: 03-23-2022 09:06-0400 Body surface area Derived from formula 1.95 m2 Ibis Rhonda Myra Work Phone: [facility] 250 DO Work Phone: 03-23-2022 09:06-0400 Body weight 86.64 kg Ibis A Myra Work Phone: [facility] 250 DO Work Phone: 03-23-2022 09:06-0400 Diastolic blood pressure 76 mm[Hg] Ibis A Myra Work Phone: [facility] 250 DO Work Phone: 03-23-2022 09:06-0400 Heart rate 66 /min Ibis Rhonda ArenasMyra Work Phone: [facility] 250 DO Work Phone: 03-23-2022 09:06-0400 Systolic blood pressure 118 mm[Hg] Ibis A Myra Work Phone: [facility] 250 DO Work Phone: 01-25-2022 08:16-0400 Body height 165.1 cm Irvin Hanna MD Work Phone: [facility] 01-25-2022 08:16-0400 Body weight 86.36 kg Irvin Hanna MD Work Phone: [facility] 01-25-2022 08:16-0400 Diastolic blood pressure 83 mm[Hg] Irvin Hanna MD Work Phone: [facility] 01-25-2022 08:16-0400 Heart rate 71 /min Irvin Hanna MD Work Phone: [facility] 01-25-2022 08:16-0400 Systolic blood pressure 116 mm[Hg] Irvin Hanna MD Work Phone: [facility] 01-10-2022 12:45-0400 Body height 165.1 cm Ok Mckeon Other [employer] Other 01-10-2022 12:45-0400 Body mass index (BMI) [Ratio] 31.61 kg/m2 Ok Mckeon Other [employer] Other 01-10-2022 12:45-0400 Body temperature 97.8 [degF] Ok Mckeon Other [employer] Other 01-10-2022 12:45-0400 Body weight 86.18 kg Ok Mckeon Other [employer] Other 01-10-2022 12:45-0400 Diastolic blood pressure 80 mm[Hg] Ok Mckeon Other [employer] Other 01-10-2022 12:45-0400 SaO2% (BldA) [Mass fraction] 96 % Ok Mckeon Other [employer] Other 01-10-2022 12:45-0400 Systolic blood pressure 120 mm[Hg] Ok Mckeon Other [employer] Other 10-10-2021 15:50-0500 Body height 165.1 cm Christina Pearce Other [employer] Other 10-10-2021 15:50-0500 Body mass index (BMI) [Ratio] 31.61 kg/m2 Christina Pearce Other [employer] Other 10-10-2021 15:50-0500 Body temperature 97 [degF] Crhistina Pearce Other [employer] Other 10-10-2021 15:50-0500 Body weight 86.18 kg Christina Pearce Other [employer] Other 10-10-2021 15:50-0500 Diastolic blood pressure 76 mm[Hg] Christina Pearce Other [employer] Other 10-10-2021 15:50-0500 Respiratory rate 18 /min Christina Lambmond Other [employer] Other 10-10-2021 15:50-0500 SaO2% (BldA) [Mass fraction] 99 % Christina Pearce Other [employer] Other 10-10-2021 15:50-0500 Systolic blood pressure 123 mm[Hg] Christina Pearce Other [employer] Other Encounters Encounter Date Encounter Type Care Provider Facility Start: 11-19-2024 End: 11-19-2024 Clinisync Result Encounter Generic External Data Provider [facility] External Department Unsolicited Start: 11-19-2024 End: 11-19-2024 Clinisync Result Encounter Generic External Data Provider [facility] External Department Unsolicited Start: 11-18-2024 End: 11-19-2024 Clinisync Result Encounter Osei Helena DO Work Phone: [facility] External Department Unsolicited Start: 11-18-2024 End: 11-19-2024 Clinisync Result Encounter Osei Helena DO Work Phone: [facility] External Department Unsolicited Start: 11-17-2024 End: 11-17-2024 Clinisync Result Encounter Osei Helena DO Work Phone: [facility] External Department Unsolicited Start: 11-17-2024 End: 11-17-2024 Clinisync Result Encounter Osei Helena DO Work Phone: [facility] External Department Unsolicited Start: 11-13-2024 End: 11-19-2024 Clinisync Result Encounter Generic External Data Provider [facility] External Department Unsolicited Start: 11-13-2024 End: 11-19-2024 Clinisync Result Encounter Generic External Data Provider [facility] External Department Unsolicited Start: 11-12-2024 End: 11-12-2024 [facility] Start: 11-10-2024 End: 11-10-2024 Bamboo flowsheet Osei [...] Only Roshni Jo RN Maternal- Medicine at [facility] Comment on above: Dichorionic diamniot [...] unspecified Start: 09-25-2024 End: 09-25-2024 ambulatory Osei Sidhuo [facility] Work Phone: Start: 09-25-2024 End: 09-25-2024 Departed Referred Osei Sidhuo DO Work Phone: [facility] Start: 09-25-2024 End: 09-25-2024 Clinisync Result Encounter Osei Helena DO Work Phone: [facility] External Department Unsolicited Start: 09-25-2024 End: 09-25-2024 Clinisync Result Encounter Osei Helena DO Work Phone: [facility] External Department Unsolicited Start: 09-25-2024 End: 09-26-2024 Telephone encounter Osei Helena DO Work Phone: [facility] Start: 09-19-2024 End: 09-26-2024 Orders Only Chrissie Willis STAMP PRESS OPERATOR Maternal- Medicine at [facility] Comment on above: Dichorionic diamniot [...] Start: 09-02-2024 End: 09-02-2024 ambulatory JYOTI DICKEY Facility:[facility] Comment on above: POTS (postural [...] encounter Marycarmen Kennedy RN Maternal- Medicine at [facility] Start: 08-27-2024 End: 08-27-2024 Bamboo [...] Only Sammi Green RN Maternal- Medicine at [facility] Comment on above: Dichorionic diamniot ic twin in second trimester (Primary Dx); POTS (postural orthostatic tachycardia syndrome); Asthma during ; 20 weeks gestation of Start: 08-13-2024 End: 08-13-2024 Office outpatient new 45 minutes Muna Lenz MD Work Phone: Maternal- Medicine at [facility] Comment on above: Dichorionic diamniot ic twin in second trimester (Primary Dx); POTS (postural orthostatic tachycardia syndrome); Asthma during ; 20 weeks gestation of Start: 08-13-2024 End: 08-13-2024 ambulatory OSEI MALIK [facility] Start: 08-11-2024 End: 08-13-2024 Clinisync [...] 07-24-2024 End: 07-24-2024 ambulatory Celeste Watson Facility:[facility] Start: 07-07-2024 End: 07-07-2024 Chart abstracting Hammad Hatch MD Work Phone: Maternal- Medicine at [facility] Start: 07-03-2024 End: 07-03-2024 flow [...] Start: 07-02-2024 End: 07-02-2024 ambulatory Joie Seaman APRN.RESIDENTIAL FINISH CARPENTER Work Phone: Neurology Comment on above: POTS (postural ortho static tachycardia syndrome) (Primary Dx); Near syncope Start: 07-02-2024 End: 07-02-2024 Telemedicine consultation with patient Joie Seaman APRN.RESIDENTIAL FINISH CARPENTER Work Phone: Neurology Start: 06-10-2024 End: 06-11-2024 [...] Start: 04-12-2024 End: 04-12-2024 ambulatory Celeste Watson Facility:[facility] Start: 04-12-2024 End: 04-12-2024 Patient encounter procedure Celeste Watson [facility] Start: 03-25-2024 Patient encounter status Camilla [...] Start: 03-14-2024 End: 03-14-2024 ambulatory Celeste Watson Facility:[facility] Start: 03-14-2024 End: 03-14-2024 Patient encounter procedure Celeste Shirley [facility] Start: 02-26-2024 End: 02-26-2024 ambulatory JB MANDUJANO Not Available Start: 01-22-2024 ambulatory OPTOMETRIST/PRACTICE OWNER Krista L Mae Facil ity:[facility] Start: 01-01-2024 End: 01-01-2024 ambulatory CELESTE FIGUEROAKES Not Available Start: 12-21-2023 End: 12-21-2023 ambulatory OSEI MALIK Not Available Start: 12-11-2023 End: 12-11-2023 ambulatory OPTOMETRIST/PRACTICE OWNER Krista L Mae Facility:[facility] Start: 12-11-2023 End: 12-11-2023 ambulatory CELESTE Nathan RINKES Not Available Start: 11-30-2023 End: 11-30-2023 ambulatory AURORA SANTIAGO Facility:[facility] Start: 11-30-2023 End: 11-30-2023 Patient encounter procedure Jyoti Dickey PA-C Work Phone: Neurology Comment on above: POTS (postural ortho static tachycardia syndrome) (Primary Dx) Start: 11-12-2023 End: 11-12-2023 Patient encounter procedure Autonomic 2 Neur Main [facility] Start: 11-12-2023 End: 11-12-2023 ambulatory AURORA SANTIAGO Neurology Comment on above: Procedure Start: 10-10-2023 End: 10-10-2023 ambulatory AURORA SANTIAGO Facility:[facility] Start: 07-24-2023 End: 07-24-2023 ambulatory Jocelin FELIX Facility:[facility] Start: 07-20-2023 Telephone encounter Arin Tinajero RN [facility] Comment on above: Referral Follow-up Start: 07-10-2023 End: 07-10-2023 ambulatory JOSE ARMANDO GREY Facility:[facility] Start: 07-10-2023 End: 07-10-2023 Office outpatient new 30 minutes Jose Armando Grey DO Work Phone: [facility] [place] Comment on above: Chronic pain of righ t knee (Primary Dx); Tendinopathy of gluteal region Start: 07-06-2023 Orders Only Jose Armando Grey DO Work Phone: Orthopaedics Comment on above: Right knee pain, uns pecified chronicity (Primary Dx) Start: 07-05-2023 End: 07-05-2023 ambulatory FASTENER SEWING MACHINE OPERATOR-C Ibis Winter Myra Work Phone: [facility] Work Phone: Start: 07-05-2023 End: 07-05-2023 Patient encounter procedure FASTENER SEWING MACHINE OPERATOR-C Ibis Myra Work Phone: [facility]-Flu Vaccine Start: 06-13-2023 Office outpatient vi sit 15 minutes Ibis Arenasncer Work Phone: -[facility] 600 DO Work Phone: Start: 06-13-2023 ambulatory Tabatha Cota Facility:1 [id number] Start: 06-08-2023 End: 06-08-2023 Emergency department patient visit FASTENER SEWING MACHINE OPERATOR-C Ibis Myra Work Phone: [facility]-Emergency Room Work Phone: Start: 04-25-2023 End: 04-25-2023 ambulatory FASTENER SEWING MACHINE OPERATOR-C Ibis Maggy Myra Work Phone: [facility] Work Phone: Start: 04-25-2023 End: 04-25-2023 Departed Referred FASTENER SEWING MACHINE OPERATOR-C Ibis Myra Work Phone: [facility]-Corporate [facility] [address] Work Phone: Start: 03-14-2023 ambulatory CHAN MUÑIZ Fa cility:[facility] Start: 01-18-2023 End: 01-18-2023 ambulatory FASTENER SEWING MACHINE OPERATOR-C Ibis Maggy Myra Work Phone: [facility] Work Phone: Start: 01-18-2023 End: 01-18-2023 Departed Referred FASTENER SEWING MACHINE OPERATOR-C Ibis Myra Work Phone: [facility] [address] Work Phone: Start: 12-28-2022 End: 12-28-2022 Patient encounter procedure Irvin Hanna MD Work Phone: Rheumatology Comment on above: Pain and swelling of knee, right (Primary Dx); Joint stiffness Start: 10-31-2022 Chart Update Ibis Arenasn cer Work Phone: [facility] 250 DO Work Phone: Start: 10-16-[address] Melodie Alfonso ty: Start: 10-13-2022 Current tobacco non- user cad cap copd pv dm Ibis A Myra Work Phone: [facility] 320 DO Work Phone: Start: 10-13-[address] Annalee Pierre acility: Start: 09-11-2022 Office outpatient vi sit 15 minutes Ibis Ellis Myra Work Phone: [facility] 250 DO Work Phone: Start: 09-11-2022 Patient encounter procedure Ibis A Myra Work Phone: [facility] 250 DO Work Phone: Start: 09-11-[address] Melodie Alfonso ty: Start: 09-07-2022 Telephone encounter Ibis Ellis Ymra Work Phone: [facility] 320 DO Work Phone: Start: 08-27-[address] Annalee Pierre acility: Start: 08-01-2022 AUDIT Ibis Ellis Spen cer Work Phone: [facility] 320 DO Work Phone: Start: 07-31-2022 EVENT EZEKIEL, Provider : HERIBERTO SERRANO BOOK REPAIRER 1,[id number], Status: Pen, Time: 11:00 AM Ibis Arenasncer Work Phone: [facility] 250 DO Work Phone: Start: 07-31-[address] Annalee Pierre acility: Start: 07-31-2022 End: 07-31-2022 Patient encounter procedure Irvin Hanna MD Work Phone: Rheumatology Comment on above: Pain and swelling of knee, right (Primary Dx); Joint stiffness; Inflammatory arthritis Start: 07-26-2022 ambulatory IBIS RENTERIA Facilit y:[facility] Start: 07-21-2022 Current tobacco non- user cad cap copd pv dm Ibis Renteria Work Phone: [facility] 320 DO Work Phone: Start: 07-21-[address] Annalee Maza F acility: Start: 07-10-2022 Office outpatient vi sit 25 minutes Ibis Renteria Work Phone: [facility] 250 DO Work Phone: Start: 07-10-2022 Patient encounter procedure Ibis Renteria Work Phone: [facility] 250 DO Work Phone: Start: 07-10-[address] Melodie Greeni ty: Start: 06-15-2022 Telephone encounter Ibis Renteria Work Phone: [facility] 250 DO Work Phone: Start: 06-12-2022 End: 06-12-[address] Annalee Maza Facility:[id number] Start: 06-05-2022 Patient encounter procedure Ibis Renteria Work Phone: [facility] Work Phone: Start: 06-01-2022 End: 06-01-2022 Emergency department patient visit FASTENER SEWING MACHINE OPERATOR-C Ibis Renteria Work Phone: [facility]-Emergency Room Start: 05-18-2022 Office outpatient vi sit 25 minutes Ibis A Myra Work Phone: [facility] 250 DO Work Phone: Start: 05-18-2022 Patient encounter procedure Ibis A Myra Work Phone: [facility] 250 DO Work Phone: Start: 05-08-2022 End: 05-08-2022 Patient encounter procedure FASTENER SEWING MACHINE OPERATOR-C Ibis Myra Work Phone: [facility]-Respiratory Therapy Start: 05-03-2022 Result Review Ibis Rhonda Spen cer Work Phone: [facility] 250 DO Work Phone: Start: 05-03-2022 SURGNONUH, Provider: María Elena Freire, Status: Pen, Time: 10:00 AM Ibis Rhonda Myra Work Phone: [facility] 250 DO Work Phone: Start: 05-03-2022 End: 05-03-2022 Patient encounter procedure FASTENER SEWING MACHINE OPERATOR-C Ibis Myra Work Phone: [facility]-ay [facility] Start: 03-28-2022 EVENT EZEKIEL, Provider : HERIBERTO SINGH BOOK REPAIRER 1,[id number], Status: Pen, Time: 8:00 AM Ibis Rhonda Myra Work Phone: [facility] 250 DO Work Phone: Start: 03-28-2022 Patient encounter procedure Ibis A Myra Work Phone: [facility] 250 DO Work Phone: Start: 03-26-2022 Chart Update Ibis A Spen cer Work Phone: [facility] 250 DO Work Phone: Start: 03-24-2022 End: 03-24-2022 Patient encounter procedure FASTENER SEWING MACHINE OPERATOR-C Ibis Myra Work Phone: [facility]-Lab Main [place] Start: 03-23-2022 Office consultation new/estab patient 60 min Ibis A Myra Work Phone: [facility] 250 DO Work Phone: Start: 03-23-2022 Office outpatient ne w 45 minutes Ibis A Myra Work Phone: [facility] Work Phone: Start: 02-02-2022 Telephone encounter Irvin shannon MD Work Phone: Rheumatology Comment on above: Orders Start: 01-25-2022 End: 01-25-2022 Patient encounter procedure Irvin Hanna MD Work Phone: Rheumatology Comment on above: Pain and swelling of knee, right (Primary Dx); Joint stiffness Start: 01-10-2022 End: 01-10-2022 ambulatory Ok Mckeon Other [employer] Other Start: 01-10-2022 Office outpatient ne w 45 minutes Ok Mckeon [facility] Vascular Surgery Start: 10-10-2021 End: 10-10-2021 ambulatory Christina Pearce Other [employer] Other Start: 10-10-2021 Office outpatient vi sit 15 minutes Christina Pearce [facility] [place] Procedures Date Procedure Procedure Detail Performing Clinician Start: 11-19-2024 End: 11-19-2024 US OB BPP W NON-STRESS Generic External Data Provider Start: 11-18-2024 US OB BPP W NON-STRESS Osei Helena DO Work Phone: Start: 11-17-2024 US OB PLACENTA Osei Fa zio DO Work Phone: Start: 11-13-2024 US OB BPP W NON-STRESS Generic External [...] Work Phone: Start: 10-27-2024 [facility] UA (CLEAN/CATCH) TENNIS NET MAKER/MICRO IF IND. Osei Helena DO Work Phone: Start: 10-23-2024 OB BPP W NON-STRESS Generic External Data Provider Start: 10-15-2024 Urnls dip stick/tabl et rgnt non-auto w/o micrscp Osei Helena DO Work Phone: Start: 10-02-2024 Urnls dip stick/tabl et rgnt non-auto w/o micrscp Osei Helena DO Work Phone: Start: 09-25-2024 [facility] UA (CLEAN/CATCH) TENNIS NET MAKER/MICRO IF IND. Osei Helena DO Work Phone: [...] Osei Helena DO Work Phone: Start: 07-10-2023 [facility] Pr ovider Historical Start: 06-08-2023 Plain chest X-ray FASTENER SEWING MACHINE OPERATOR-C Ibis Renteria Work Phone: Start: 01-18-2023 Plain chest X-ray FASTENER SEWING MACHINE OPERATOR-C Ibis Renteria Work Phone: Start: 05-03-2022 Plain chest X-ray FASTENER SEWING MACHINE OPERATOR-C Ibis Renteria Work Phone: Start: 08-05-2021 Arthroscopy of knee Lorna Watson Arthroscopy of knee Ibis Limer Work Phone: Cryotherapy of warts Rajeev Watson Extraction of wisdom tooth Ibis Ellis Myra Work Phone: SARS-CoV-2, Influenz a & RSV (PCR) FASTENER SEWING MACHINE OPERATOR-C Ibis Limer Work Phone: Tonsillectomy and adenoidectomy Ibis Limer Work Phone: Tonsillectomy and adenoidectomy Celeste Watson NEGATED: Highlighted row has not occurred! Total colonoscopy Ibis Ellis Myra Work Phone: Plan of Treatment Date Care Activity Detail Author Start: 03-25-2034 DTaP,Tdap and Td Vac cines (8 - Td or Tdap) DTaP,Tdap and Td Vaccines (8 - Td or Tdap) [employer] Start: 03-25-2034 Urine microalbumin profile DTaP,Tdap,Td Vaccine (8 - Td or Tdap) [facility] Start: 08-05-2027 Screening for malign ant neoplasm of cervix Pap Smear [employer] Start: 10-17-2025 End: 10-17-2025 US MFM with or without consult US MFM with or without consult Imaging Routine Dichorionic diamniotic twin in third trimester Expected: 10/17/2025 (Approximate), Expires: 10/17/2025 [employer] Work Phone: Comment on above: Expected: 10/17/2025 [...] Adult BMI Screening Adult BMI Screen ing [facility] Start: 08-13-2025 Tobacco Screening Tobacco Screening [facility] Start: 11-26-2024 End: 11-26-2024 Patient encounter procedure 11/26/2024 2:10 PM EST Routine [facility] [address] [place] [id number] Osei Malik, DO [address] [place] [address] [facility] Start: 11-12-2024 End: 11-12-2024 Patient encounter procedure 11/12/2024 9:30 AM EST Appointment [facility] [address] [place] [address] [facility] Start: 11-10-2024 End: 11-10-2024 Patient encounter procedure 11/10/2024 9:00 AM EST Routine [facility] [address] [place] [address] Osei Malik, DO [address] [place] [address] [facility] Start: 10-29-2024 End: 10-29-2024 Patient encounter procedure [facility] Comment on above: Arrived Start: 10-16-2024 End: 10-16-2024 Patient encounter procedure 10/16/2024 1:00 PM EST Appointment [facility] [address] [place] [address] [facility] Start: 10-15-2024 End: 10-15-2024 [...] AM EST Routine [facility] [address] [place] [address] Osei Malik DO [address] [place] [address] [facility] Start: 09-25-2024 Urine culture [facility] Start: 09-25-2024 Bacteria identified in Urine by Culture Urine Culture [facility] Start: 09-23-2024 End: 09-23-2024 Patient encounter procedure 09/23/2024 1:00 PM EST Appointment [facility] - Ultrasound [address] [place] [phone] [facility] Start: 09-19-2024 End: 09-19-2024 Patient encounter procedure 09/19/2024 9:30 AM EST Appointment [facility] [address] [place] [address] [facility] Start: 09-18-2024 End: 09-18-2024 Patient encounter procedure [facility] Comment on above: Arrived Start: 09-03-2024 End: 09-03-2024 Patient encounter procedure [facility] Comment on above: Arrived Start: 09-02-2024 End: 09-02-2024 ambulatory 09/02/2024 12:15 PM EST [facility] Neurology [address] [place] [address] Jyoti Dickey PA-C [address] [place], [place] [id number] F/u Neurology Comment on above: F/u Start: 09-02-2024 End: 09-02-2024 ambulatory 09/02/2024 10:45 AM EST [facility] Neurology [address] [place] [address] Jyoti Dickey PA-C [address] [place], [place] [id number] F/u Neurology Comment on above: F/u Start: 08-27-2024 End: 08-27-2024 Patient encounter procedure 08/27/2024 1:00 PM EST Office Visit [facility] [address] [facility] [address] [place] [phone] Camilla Garcia PA [address] [facility] [address] [place] [address] Arrived [facility] Comment on above: Arrived Start: 08-13-2024 End: 08-13-2024 Patient encounter procedure [facility] Start: 08-05-2024 End: 02-02-2025 Alpha fetoprotein, maternal Alpha fetoprotein, maternal Lab Routine Second trimester Expected: 08/05/2024 (Approximate), Expires: 02/02/2025 [facility] Comment on above: Expected: 08/05/2024 (Approximate), Expires: 02/02/2025 Start: 08-05-2024 End: 08-05-2024 Patient encounter procedure 08/05/2024 8:50 AM EST Routine [facility] [address] [place] [phone] Osei Malik DO [address] [facility] [place] [address] [facility] Start: 07-03-2024 End: 07-03-2024 Patient encounter procedure [facility] Comment on above: Arrived Start: 06-04-2024 End: 06-04-2024 Patient encounter procedure [facility] Comment on above: Arrived Start: 05-25-2024 Covid-19 Vaccine ( season) Covid-19 Vaccine () [facility] Start: 05-25-2024 Covid-19 Vaccine () Covid-19 Vaccine () [facility] Start: 05-25-2024 Influenza vaccination [facility] [place] Start: 05-23-2024 End: 05-23-2025 ABO/Rh ABO/Rh Lab Routine Missed menses Expected: 05/23/2024 (Approximate), Expires: 05/23/2025 [facility] Comment on above: Expected: 05/23/2024 (Approximate), Expires: 05/23/2025 Start: 05-23-2024 End: 05-23-2025 Blood type and Indirect antibody screen panel - Blood Type and screen Lab Routine Missed menses Expected: 05/23/2024 (Approximate), Expires: 05/23/2025 [facility] Work Phone: Comment on above: Expected: 05/23/2024 (Approximate), Expires: 05/23/2025 Start: 05-23-2024 End: 05-23-2025 US Pelvis transvaginal US OB transvaginal Imaging Routine Missed menses Expected: 05/23/2024 (Approximate), Expires: 05/23/2025 [facility] Comment on above: Expected: 05/23/2024 (Approximate), Expires: 05/23/2025 Start: 05-23-2024 End: 05-23-2024 ambulatory 05/23/2024 9:00 AM EDT Initial [facility] [address] [facility] [phone] [facility] Start: 05-23-2024 End: 05-23-2024 Professional / ancillary services management 05/23/2024 8:30 AM EDT Ancillary Procedure [facility] [address] [place] [address] [facility] Start: 05-20-2024 End: 05-20-2024 Patient encounter procedure 05/20/2024 9:30 AM EDT Office Visit [facility] [address] [facility] [address] [place] [phone] Camilla Garcia PA [address] [facility] [address] [place] [address] Arrived [facility] Comment on above: Arrived Start: 04-20-2024 Urine microalbumin profile DTaP,Tdap,Td Vaccine (7 - Td or Tdap) [facility] Start: 09-24-2023 Depression Assessment Depression Ass essment [facility] Start: 05-25-2023 Covid-19 Vaccine ( season) Covid-19 Vaccine ( season) [facility] Start: 05-25-2023 Influenza vaccination C [facility] [place] Start: 04-25-2023 [facility] Start: 04-06-2023 FUV, Provider: Annalee Maza, Status: Pen, Time: 2:40 PM FUV, Provider: Annalee Maza, Status: Pen, Time: 2:40 PM [facility] DO Work Phone: Start: 2022 PAP TESTING PAP TESTING [facility] Start: 2022 Screening for malign ant neoplasm of cervix [facility] Start: 10-13-2022 FUV, Provider: Annalee Maza, Status: Pen, Time: 9:20 AM FUV, Provider: Annalee Maza, Status: Pen, Time: 9:20 AM [facility] 320 DO Work Phone: Start: 09-24-2022 DEPRESSION ASSESSMENT DEPRESSION [facility] Start: 09-11-2022 FUV, Provider: Melodie Alcaraz, Status: Pen, Time: 9:30 AM FUV, Provider: Melodie Alcaraz, Status: Pen, Time: 9:30 AM [facility] 250 DO Work Phone: Start: 09-11-2022 EVENT EZEKIEL, Provider : HERIBERTO SINGH BOOK REPAIRER 1,[id number], Status: Pen, Time: 8:30 AM EVENT EZEKIEL, Provider: HERIBERTO SINGH BOOK REPAIRER 1,[id number], Status: Pen, Time: 8:30 AM [facility] 320 DO Work Phone: Start: 08-14-2022 EVENT EZEKIEL, Provider : HERIBERTO LEMON BOOK REPAIRER 1,[id number], Status: Pen, Time: 10:00 AM EVENT EZEKIEL, Provider: HERIBERTO LEMON BOOK REPAIRER 1,[id number], Status: Pen, Time: 10:00 AM [facility] 250 DO Work Phone: Start: 07-21-2022 NPVRFRL, Provider: Annalee Maza, Status: Pen, Time: 7:20 AM NPVRFRL, Provider: Annalee Maza, Status: Pen, Time: 7:20 AM [facility] 250 DO Work Phone: Start: 07-10-2022 FUV, Provider: Melodie Alcaraz, Status: Pen, Time: 10:45 AM FUV, Provider: Melodie Alcaraz, Status: Pen, Time: 10:45 AM [facility] 250 DO Work Phone: Start: 06-05-2022 [facility], Provider: Annalee Maza, Status: Pen, Time: 10:00 AM [facility], Provider: Annalee Maza, Status: Pen, Time: 10:00 AM -[facility] 250 DO Work Phone: Start: 05-25-2022 Influenza vaccination C [facility] [place] Start: 05-18-2022 FUV, Provider: Melodie Alcaraz, Status: Pen, Time: 9:15 AM FUV, Provider: Melodie Alcaraz, Status: Pen, Time: 9:15 AM -[facility] 250 DO Work Phone: Start: 05-08-2022 End: 05-08-2022 Patient encounter procedure [facility]Res[facility] Start: 05-03-2022 SURGNONUH, Provider: María Elena Freire, Status: Pen, Time: 10:00 AM SURGNONUH, Provider: María Elena Freire, Status: Pen, Time: 10:00 AM -[facility] 250 DO Work Phone: Start: 03-28-2022 EVENT EZEKIEL, Provider : HERIBERTO SINGH BOOK REPAIRER 1,[id number], Status: Pen, Time: 8:00 AM EVENT EZEKIEL, Provider: HERIBERTO SINGH BOOK REPAIRER 1,[id number], Status: Pen, Time: 8:00 AM -[facility] 250 DO Work Phone: Start: 01-25-2022 End: 03-27-2022 Chronic hepatitis differentiation between hepatitis B and C virus panel - Serum or Plasma [facility] Work Phone: Comment on above: Expected: 01/25/2022 , Expires: 03/27/2022 Start: 01-25-2022 End: 03-27-2022 Complement C1 esterase inhibitor [Mass/volume] in Serum or Plasma [facility] Work Phone: Comment on above: Expected: 01/25/2022 , Expires: 03/27/2022 Start: 01-25-2022 End: 03-27-2022 Complement C2 [Mass/volume] in Serum or Plasma [facility] Work Phone: Comment on above: Expected: 01/25/2022 , Expires: 03/27/2022 Start: 09-24-2021 DEPRESSION ASSESSMENT DEPRESSION ASS ESSMENT [facility] Start: 06-16-2021 COVID-19 VACCINE (3 - Booster for Pfizer series) COVID-19 VACCINE (3 - Booster for Pfizer series) [facility] Start: 03-11-2021 COVID-19 VACCINE (3 - Booster for Pfizer series) COVID-19 VACCINE (3 - Booster for Pfizer series) [facility] Start: 02-11-2021 COVID-19 VACCINE (3 - Pfizer risk series) COVID-19 VACCINE (3 - Pfizer risk series) [facility] Start: 2020 SHINGRIX VACCINE (1 of 2) VANG GRIX VACCINE (1 of 2) [facility] Start: 2020 Urine microalbumin profile [facility] Start: 12-03-2019 Adult BMI Follow Up Plan Adult BMI Follow Up Plan [facility] Start: 12-03-2019 Adult BMI Screening Adult BMI Screen ing [facility] Start: 12-03-2019 Anxiety Screening Anxiety Screening [facility] Start: 12-03-2019 CHLAMYDIA SCREENING (18-24) CHLAMYDIA SCREENING (18-24) [facility] Start: 12-03-2019 Depression Screening Depression Scre ening [facility] Start: 12-03-2019 GC (GONORRHEA) SCREE NINI (18-24) GC (GONORRHEA) SCREENING (18-24) [facility] Start: 12-03-2019 HEPATITIS C SCREENING HEPATITIS C SC REENING [facility] Start: 12-03-2019 HIV SCREENING HIV SCREENING [facility] Start: 12-03-2019 HIV screening HIV Screening [facility] Start: 12-03-2019 Screening for Chlamy taylor trachomatis Chlamydia Screening (18-24) [facility] Start: 2017 Meningococcal B Vacc ine: Consider Based On Risk (1 of 2 - Patient Seeks Protection) Meningococcal B Vaccine: Consider Based On Risk (1 of 2 - Patient Seeks Protection) [facility] Start: 12-03-2015 PEDS TO ADULT TRANSI TION ANNUAL ASSESSMENT PEDS TO ADULT TRANSITION ANNUAL ASSESSMENT [facility] Start: 2013 Adult depression screening assessment DEPRESSION SCREENING [facility] Start: 2013 PEDS TO ADULT TRANSI TION INITIAL DISCUSSION PEDS TO ADULT TRANSITION INITIAL DISCUSSION [facility] Start: 2013 Tobacco Screening Tobacco Screening [facility] Start: 2012 HPV VACCINE (1 - 2-d ose series) HPV VACCINE (1 - 2-dose series) [facility] Start: 12-03-2011 MENINGOCOCCAL B: Con investment advisor based on risk (1 of 2 - Risk Bexsero 2-dose series) MENINGOCOCCAL B: Consider based on risk (1 of 2 - Risk Bexsero 2-dose series) [facility] Start: 2010 HPV Vaccine (1 - 2-d ose series) HPV Vaccine (1 - 2-dose series) [facility] Start: 2010 HPV VACCINES (1 - 2- dose series) HPV VACCINES (1 - 2-dose series) [facility] Start: 2008 DTaP/Tdap/Td VACCINE S (1 - Tdap) DTaP/Tdap/Td VACCINES (1 - Tdap) [facility] Start: 12-03-2007 PNEUMOCOCCAL (1 - PCV) PNEUMOCOCCAL (1 - PCV) [facility] Start: 2002 MMR VACCINES (1 of 1 - Standard series) MMR VACCINES (1 of 1 - Standard series) [facility] Start: 2002 VARICELLA VACCINES ( 1 of 2 - 2-dose childhood series) VARICELLA VACCINES (1 of 2 - 2-dose childhood series) [facility] Start: 06-04-2002 COVID-19 Vaccine (#1) COVID-19 Vacci ne (#1) [facility] Start: 2001 HEPATITIS B (1 of 3 - 3-dose series) HEPATITIS B (1 of 3 - 3-dose series) [facility] Start: 2001 Hepatitis B Vaccine (1 of 3 - 3-dose series) Hepatitis B Vaccine (1 of 3 - 3-dose series) [facility] Start: 2001 HEPATITIS B VACCINES (1 of 3 - 3-dose series) HEPATITIS B VACCINES (1 of 3 - 3-dose series) [facility] Start: 2001 Screening for Chlamy taylor trachomatis Chlamydia Screening [facility] Bacteria identified in Urine by Culture Urine culture Microbiology Routine Missed menses Ordered: 05/23/2024 [facility] Comment on above: Ordered: 05/23/2024 CBC W Auto Different ial panel - Blood CBC and differential Lab Routine Missed menses Ordered: 05/23/2024 [facility] Comment on above: Ordered: 05/23/2024 CHLAMYDIA TRACHOMATI S (GENITO/STI) CHLAMYDIA TRACHOMATIS (GENITO/STI) Lab Routine STD exposure Ordered: 08/05/2024 [facility] Comment on above: Ordered: 08/05/2024 Cytology Cervical or vaginal smear or scraping study Pap Smear Pathology and Cytology Routine Well woman exam with routine gynecological exam Ordered: 08/05/2024 [facility] Comment on above: Ordered: 08/05/2024 Hemoglobin A1c/Hemoglobin.total in Blood Hemoglobin A1c Lab Routine Missed menses Ordered: 05/23/2024 [facility] Comment on above: Ordered: 05/23/2024 Hepatitis B virus ramirez rface Ag [Presence] in Serum or Plasma by Immunoassay Hepatitis B surface antigen Lab Routine Missed menses Ordered: 05/23/2024 [facility] Comment on above: Ordered: 05/23/2024 Hepatitis C virus Ab [Presence] in Serum or Plasma by Immunoassay Hepatitis C antibody Lab Routine Missed menses Ordered: 05/23/2024 [facility] Comment on above: Ordered: 05/23/2024 HIV-1/HIV-2 antigen/antibody combination immunoassay HIV-1 and HIV-2 antibodies Lab Routine Missed menses Ordered: 05/23/2024 [facility] Comment on above: Ordered: 05/23/2024 Neisseria gonorrhoea e DNA [Presence] in Unspecified specimen by PERFECTO with probe detection Neisseria gonorrhea DNA probe, direct Lab Routine STD exposure Ordered: 08/05/2024 [facility] Comment on above: Ordered: 08/05/2024 Patient Education [facility] Work Phone: Patient referral [facility] Work Phone: Reagin Ab [Presence] in Serum by RPR RPR Lab Routine Missed menses Ordered: 05/23/2024 [facility] Comment on above: Ordered: 05/23/2024 Rubella antibody, IgG Rubella an tibody, IgG Lab Routine Missed menses Ordered: 05/23/2024 [facility] Comment on above: Ordered: 05/23/2024 SURESWAB(R) ADVANCED VAGINITIS PLUS, TMA SURESWAB(R) ADVANCED VAGINITIS PLUS, TMA Pathology and Cytology Routine Vaginal discharge Ordered: 08/05/2024 [facility] Work Phone: Comment on above: Ordered: 08/05/2024 End: 08-04-2024 XR KNEE GENERAL 4V AP BOTH/PA BOTH/LAT/MERC RIGHT XR KNEE GENERAL 4V AP BOTH/PA BOTH/LAT/MERC RIGHT Radiology Routine Right knee pain, unspecified chronicity 1 Occurrences starting 07/06/2023 until 08/04/2024 [facility] Work Phone: Comment on above: 1 Occurrences starti ng 07/06/2023 until 08/04/2024 [facility] Immunizations Immunization Date Immunization Notes Care Provider [facility] 07-24-2024 influenza, seasonal, injectable, preservative free Camilla TOLBERT Work Phone: [facility] Work Phone: 03-25-2024 tetanus toxoid, redu richar diphtheria toxoid, and acellular pertussis vaccine, adsorbed Camilla TOLBERT Work Phone: [facility] 07-05-2023 influenza virus vaccine, unspecified formulation Celeste Watson [facility] 07-05-2023 influenza, injectabl e, quadrivalent, preservative free Camilla TOLBERT Work Phone: [facility] 01-14-2021 Pfizer-BioNTech COVID-19 Vacc 30 MCG/0.3ML Intramuscular Suspension Ibis Renteria Work Phone: [facility] Comment on above: Result Comment: 2023: TPVAL 12-24-2020 Pfizer-BioNTech COVID-19 Vacc 30 MCG/0.3ML Intramuscular Suspension Ibis Renteria Work Phone: [facility] Comment on above: Result Comment: 2023: TPVAL 12-11-2017 meningococcal polysaccharide (groups A, C, Y and W-135) diphtheria toxoid conjugate vaccine (MCV4P) Christina Portia Other [place] [employer] Other 12-11-2017 meningococcal ACWY vaccine, unspecified formulation Celeste Rinradha [facility] 11-06-2014 human papilloma viru s vaccine, quadrivalent Christina Portia Other [place] [facility] Other 11-06-2014 HPV, unspecified formulation [facility]bis [facility]cer [facility] Work Phone: 06-26-2014 HPV, unspecified formulation Celeste Rinradha [facility] 06-26-2014 human papilloma viru s vaccine, quadrivalent Christina Portia Other [place] [employer] Other 04-20-2014 human papilloma viru s vaccine, quadrivalent Christina Portia Other [place] [employer] Other 04-20-2014 meningococcal polysaccharide (groups A, C, Y and W-135) diphtheria toxoid conjugate vaccine (MCV4P) Christina Portia Other [place] [employer] Other 04-20-2014 tetanus toxoid, redu richar diphtheria toxoid, and acellular pertussis vaccine, adsorbed Christina Portia Other [facility] 04-20-2014 HPV, unspecified formulation Celeste Rinradha [facility] 04-20-2014 meningococcal ACWY vaccine, unspecified formulation Celeste Rinkes [facility] 12-27-2006 diphtheria, tetanus toxoids and acellular pertussis vaccine, unspecified formulation Ibis A Myra Work Phone: [facility] 250 DO Work Phone: 12-27-2006 DTaP, unspecified formulation Celeste Rinkes [facility] 12-27-2006 measles, mumps, rubella, and varicella virus vaccine Ibis A Myra Work Phone: [facility] 12-27-2006 poliovirus vaccine, inactivated Ibis A Myra Work Phone: [facility] 250 DO Work Phone: 12-27-2006 poliovirus vaccine, unspecified formulation Celeste RinNimbix [facility] 02-06-2003 diphtheria, tetanus toxoids and acellular pertussis vaccine, unspecified formulation Ibis A Myra Work Phone: [facility] 250 DO Work Phone: 02-06-2003 DTaP, unspecified formulation Celeste RinNimbix [facility] 02-06-2003 haemophilus influenz ae type b vaccine, conjugate unspecified formulation Ibis A Myra Work Phone: [facility] 250 DO Work Phone: 02-06-2003 Hib, unspecified formulation Celeste RinNimbix [facility] 02-06-2003 measles, mumps and rubella virus vaccine Ibis A Myra Work Phone: [facility] 02-06-2003 varicella virus vaccine Susan ica A Myra Work Phone: [facility] 07-02-2002 diphtheria, tetanus toxoids and acellular pertussis vaccine, unspecified formulation Ibis A Myra Work Phone: [place] [address] DO Work Phone: 07-02-2002 DTaP, unspecified formulation Celeste RinNimbix [facility] 07-02-2002 haemophilus influenz ae type b vaccine, conjugate unspecified formulation Ibis A Myra Work Phone: [place] [address] DO Work Phone: 07-02-2002 Hib, unspecified formulation Celeste Rinkes [facility] 07-02-2002 pneumococcal conjuga te vaccine, 7 valent Ibis A Myra Work Phone: [place] [address] DO Work Phone: 07-02-2002 poliovirus vaccine, inactivated Ibis A Myra Work Phone: [place] [address] DO Work Phone: 07-02-2002 poliovirus vaccine, unspecified formulation Celeste RinNimbix [facility] 05-19-2002 diphtheria, tetanus toxoids and acellular pertussis vaccine, unspecified formulation Ibis A Myra Work Phone: [place] [address] DO Work Phone: 05-19-2002 DTaP, unspecified formulation Celeste Rinkes [facility] 05-19-2002 haemophilus influenz ae type b conjugate and Hepatitis B vaccine Ibis A Myra Work Phone: [place] [address] DO Work Phone: 05-19-2002 pneumococcal conjuga te vaccine, 7 valent Ibis A Myra Work Phone: [facility] 250 DO Work Phone: 05-19-2002 poliovirus vaccine, inactivated Ibis A Myra Work Phone: [facility] 250 DO Work Phone: 05-19-2002 poliovirus vaccine, unspecified formulation Celeste RinNimbix [facility] 03-05-2002 diphtheria, tetanus toxoids and acellular pertussis vaccine, unspecified formulation Ibis A Myra Work Phone: [place] [address] DO Work Phone: 03-05-2002 DTaP, unspecified formulation Celeste Rinkes [facility] 03-05-2002 haemophilus influenz ae type b conjugate and Hepatitis B vaccine Ibis A Myra Work Phone: [place] [address] DO Work Phone: 03-05-2002 poliovirus vaccine, inactivated Ibis A Myra Work Phone: [facility] 250 DO Work Phone: 03-05-2002 poliovirus vaccine, unspecified formulation Celeste RinNimbix [facility] 2001 hepatitis B vaccine, pediatric or pediatric/adolescent dosage Ibis A Myra Work Phone: [facility] Payers Date Payer Category Payer Self-pay [id number] 2023 Unknown [id number] 2022 Medicaid O [facility] [id number] 2021 Private Health Insurance [id number]. [id number] 2021 Private Health Insurance [id number] 2.16.840.1.064022.19 2020 Private Health Insurance [facility] CHOICE PLUS [id number] 2020-Present [phone] [address] [place] [address] HMO [id number]. [id number] 2020 Unknown [id number] 2017 Managed Care Other (unspecified) [id number]. [id number] 2013 Medicaid [employer] [id number] 2013-Present [phone] [address] [place] [address] Medicaid [id number] [id number]. [id number] 2013 Medicaid [id number]. 1.13.159.2. [id number] 2007 Unknown [id number] 2.16.840.1.399509.19 2001 Unknown [id number] 2.16.840.1.938066.3.579.2. 1068 2001 Unknown [id number] 2.16.840.1.975495.3.579.2. 594 2001 Unknown [id number] 2.16.840.1.239486.3.579.2. 594 2001 Unknown [id number] 2.16.840.1.349260.3.579.2. 356 2001 Unknown [id number] 2.16.840.1.422426.3.579.2. 356 2001 Unknown [id number] 2.16.840.1.991456.3.579.2. 356 2001 Unknown [id number] 2.16.840.1.871017.3.579.2. 356 2001 Unknown [id number] 2.16.840.1.515466.3.579.2. 356 2001 Unknown [id number] 2.16.840.1.352309.3.579.2. 356 2001 Unknown [id number] 2.16.840.1.367098.3.579.2. 356 2001 Unknown [id number] 2.16.840.1.047888.3.579.2. 356 2001 Unknown [id number] 2.16.840.1.854749.3.579.2. 727 2001 Unknown [id number] 2.16.840.1.376936.3.579.2. 727 2001 Unknown [id number] 2.16.840.1.290682.3.579.2. 727 2001 Unknown [id number] 2.16.840.1.775443.3.579.2. 727 2001 Unknown [id number] 2.16.840.1.357886.3.579.2. 727 2001 Unknown [id number] 2.16.840.1.707788.3.579.2. 1259 2001 Unknown [id number] 2.16.840.1.390637.3.579.2. 1258 2001 Unknown [id number] 2.16.840.1.476041.3.579.2. 1258 2001 Unknown [id number] 2.16.840.1.980586.3.579.2. 1258 2001 Unknown [id number] 2.16.840.1.702328.3.579.2. 1258 2001 Unknown [id number] 2.16.840.1.076287.3.579.2. 1258 2001 Unknown [id number] 2.16.840.1.785341.3.579.2. 1258 2001 Unknown [id number] 2.16.840.1.884413.3.579.2. 1258 2001 Unknown [id number] 2.16.840.1.131048.3.579.2. 1258 2001 Unknown [id number] 2.16.840.1.101784.3.579.2. 1258 2001 Unknown [id number] 2.16.840.1.355128.3.579.2. 1258 2001 Unknown [id number] 2.16.840.1.023361.3.579.2. 1258 2001 Unknown [id number] 2.16.840.1.649110.3.579.2. 1258 2001 Unknown [id number] 2.16.840.1.032691.3.579.2. 1258 2001 Unknown [id number] 2.16.840.1.766540.3.579.2. 1258 2001 Unknown [id number] 2.16.840.1.302400.3.579.2. 1258 2001 Unknown [id number] 2.16.840.1.098942.3.579.2. 1258 2001 Unknown [id number] 2.16.840.1.033556.3.579.2. 1286 2001 Unknown [id number] 2.840.1.178479.3.579.2. 1286 2001 Unknown [id number] 2.16.840.1.107217.3.579.2. 1286 2001 Unknown [id number] 2.16.840.1.849231.3.579.2. 1286 2001 Unknown [id number] 2.16840.1.165322.3.579.2. 1286 Unknown Unknown Venessa BC/BS [id number] Unknown [id number] 2..840.1.837356.3.579.2. 531 Social History Date Type Detail Facility [facility] Work Phone: Start: 2001 Sex Assigned At Not on file [facility] Start: 01-15-2022 End: 07-31-2022 Exposure to SARS-CoV-2 (event) Not sure [facility] Start: 12-28-2022 End: 02-25-2024 Sex Assigned At [facility] Start: 12-28-2022 End: 02-25-2024 No alcohol use No alcohol use [facility] Comment on above: very rarely soda; Start: 09-20-2019 End: 02-20-2023 Tobacco smoking status UTIS Never smoked tobacco (finding) [facility] Start: 2001 Sex Assigned At Female F [facility] Start: 07-31-2022 End: 02-20-2023 Tobacco use and exposure Smokeless tobacco non-user [facility] Adult Depression Screening Assessment 0 [facility] Start: 09-29-2023 Gender identity Identifies as female gender (finding) [facility] Start: 06-04-2024 End: 10-27-2024 Alcoholic [...] Start: 04-27-2015 End: 09-26-2024 Sex Female (finding) [facility] NEGATED: Highlighted rowStart: RIKF History of tobacco use Passive smoker [facility] Medical Equipment Procedure Code Equipment Code Equipment Origin al Text Equipment Identifier Dates 1 strip by In Vi tro route Daily Use in the morning prior to breakfast, 1 hour after each meal for a total of 4times daily. [id number] Start: 09-18-2024 End: 10-18-2024 1 each by In Vit ro route Daily Use to check FSBS four times daily [id number] Start: 09-18-2024 End: 10-18-2024 Clinical Notes 09-24-2007 to 11-10-2024 Irvin Mendes LPN - 11/10/2024 9:00 AM Teresa Bar LPN - 10/29/2024 3:50 PM Teresa Bar LPN - 10/15/2024 3:30 PM Titi Mendes LPN - 10/02/2024 11:00 AM EST Note Date [...] nursing note reviewed. Exam conducted with a forest fire prevention manager present. Vitals: Estimated body mass index is [...] Osei Malik DO documented in this encounter [facility] 10-29-2024 History of Present illness Narrative Reason [...] nursing note reviewed. Exam conducted with a forest fire prevention manager present. Vitals: Estimated body mass index is [...] Osei Malik DO documented in this encounter [facility] 10-15-2024 History of Present illness Narrative Reason [...] nursing note reviewed. Exam conducted with a forest fire prevention manager present. Vitals: Estimated body mass index is [...] Osei Malik DO documented in this encounter [facility] 10-02-2024 History of Present illness Narrative Reason [...] Do not swallow. Blood Glucose Monitoring Suppl (D-Mi-Pay Glucometer) w/Device kit 1 kit, Does not [...] nursing note reviewed. Exam conducted with a forest fire prevention manager present. Vitals: Estimated body mass index is [...] Osei Malik DO documented in this encounter [facility] 09-25-2024 Telephone encounter Note Patient called the [...] today. Patient was advised to report to [facility] for check and she was asking if she could go to [facility] as that's closer she was advised we prefer [place] but she can go where she is comfortable. Patient states will go to [facility] as she is at work and that's closer right now. Patient advised note would be in chart. [facility] Work Phone: 09-25-2024 Miscellaneous Notes Patient called [...] today. Patient was advised to report to [facility] for check and she was asking if she could go to [facility] as that's closer she was advised we prefer [place] but she can go where she is comfortable. Patient states will go to [facility] as she is at work and that's closer right now. Patient advised note would be in chart. documented in this encounter [facility] 09-18-2024 History of Present illness Narrative Reason [...] nursing note reviewed. Exam conducted with a forest fire prevention manager present. Vitals: Estimated body mass index is [...] Osei Malik DO documented in this encounter [facility] 09-03-2024 History of Present illness Narrative Reason [...] Osei Malik DO documented in this encounter [facility] 09-02-2024 History of Present illness Narrative Images from the original note were not included. [facility] Follow-Up VIRTUAL VISIT This is a virtual visit using [employer] and [employer] Video Visit. It required patient-provider interaction for the medical decision making as documented below. I have communicated my name and active licensure. The patient's identity and physical location were verified at the time of this visit. Either the patient or their legal claims service representative has been informed of the [...] which included preparing to see the patient, [id number] patient care, completing clinical documentation, obtaining and/or reviewing separately obtained history, performing a medically appropriate examination, and counseling and educating the patient/family/caregiver. Jyoti Dickey PA-C Neuromuscular Medicine [address] [place]. [address] Appointment: [phone] During our virtual visit encounter we discussed [...] bright light?: Mild documented in this encounter [facility] 09-02-2024 Note HNO ID: [id number] Author: JYOTI DICKEY PA-C Service: ? Author Type: Physician Pastry Artist Type: Progress Notes Filed: 09/02/2024 11:21 Note Text: [facility] Follow-Up VIRTUAL VISIT This is a virtual visit using [employer] Video Visit. It required patient-provider interaction for the medical decision making as documented below. I have communicated my name and active licensure. The patient's identity and physical location were verified at the time of this visit. Either the patient or their legal claims service representative has been informed of the [...] female here t (more content not included)... [facility] 08-29-2024 Miscellaneous Notes Sports Activities Foul Judge spoke to patient . Patient has complains of SOB which she states is mainly at night time. She has recently seen her PCP who stated that her lungs are tight/restricted and prescribed her an inhaler. Today the patient is feeling better and states that when she checked her SPO2 today it was at 96%. Sports Activities Foul Judge advised patient to monitor and if her O2 Sat falls under 95% and/or the inhaler does not help to present to her nearest ER. Patient verbalized understanding. documented in this encounter [facility] 08-29-2024 Telephone encounter Note Sports Activities Foul Judge spoke to patient . Patient has complains of SOB which she states is mainly at night time. She has recently seen her PCP who stated that her lungs are tight/restricted and prescribed her an inhaler. Today the patient is feeling better and states that when she checked her SPO2 today it was at 96%. Sports Activities Foul Judge advised patient to monitor and if her O2 Sat falls under 95% and/or the inhaler does not help to present to her nearest ER. Patient verbalized understanding. [facility] 08-27-2024 Telephone encounter Note Alternative inhaler requested by pharmacy. [facility] 08-27-2024 Miscellaneous Notes Alternative inhaler requested by pharmacy. documented in this encounter [facility] 08-27-2024 History of Present illness Narrative Images from the original note were not included. Subjective Patient ID: Madyson Mai is a 23 y.o. female who presents for asthma. Madyson is present today for evaluation of asthma. Admits she is 22 weeks with twins, she is not sure if that is what is flaring up her asthma. She has not see her silk snapper in a couple of years and her [...] fail to improve. documented in this encounter [facility] 08-13-2024 History of Present illness Narrative Headache/epigastric [...] no Have you been seen here at [facility] in a previous ? no Recent ER visits or hospitalizations? no Bring blood sugar log or meter with you today? (Please bring them with you for every visit at [facility]) n/a Flu vaccine (Jul-November)? Yes Any concerns [...] Resource Strain: Low Risk (02/25/2024) Received from [facility] Overall Financial Resource Strain (CARDIA) Difficulty of Paying Living Expenses: Not very hard Food Insecurity: No Food Insecurity (08/13/2024) Hunger Screening Food Insecurity - Worry: Never True Food Insecurity - Inability: Never True Transportation Needs: No Transportation Needs (02/25/2024) Received from [facility] PRAPARE - Transportation Lack of Transportation (Medical): No Lack of Transportation (Non-Medical): No Physical Activity: Inactive (02/25/2024) Received from [facility] Exercise Vital Sign Days of Exercise per Week: 0 days Minutes of Exercise per Session: 0 min Stress: No Stress Concern Present (02/25/2024) Received from [facility] [employer] [place] of Occupational Health - Occupational Stress Questionnaire Feeling of Stress : Only a little Social Connections: Moderately Integrated (02/25/2024) Received from [facility] Social Connection and Isolation Panel [NHANES] Frequency of Communication with Friends and Family: More than three times a week Frequency of Social Gatherings with Friends and Family: Three times a week Attends Worship Services: More than 4 times per year Active Member of Clubs or Organizations: No Attends Club or Organization Meetings: Patient declined Marital Status: Interpersonal Safety: Not on file Housing Instability: Low Risk (02/25/2024) Received from [facility] Housing Stability Vital Sign Unable to Pay [...] complications, or both, related to use. The [place] and the [...] syndrome) She follows with Neurology at [facility]. Last visit was on 07/02/2024. External records reviewed. 07/02/2024 - General Neurology, Joie Seaman APRN.RESIDENTIAL FINISH CARPENTER ASSESSMENT Madyson Mai is a 23 year [...] continue with routine care in your office [facility], the CDC, and other organizations representing maternal and public health professionals recommend that , , and lactating people and those considering receive the COVID-19 vaccination. Vaccination is the best method to reduce maternal and complications of SARS-CoV-2 infection. This document was created with gifted2you technology. Though I make every effort to review the dictation as it is transcribed, on occasion the spoken word can be misinterpreted by the technology leading to inappropriate words, phrases, or sentences. This note is addressed to the requesting provider as a consultation for clinical guidance. Specific medical abbreviations are occasionally used and those are generally approved by the [place]?Board of?Obstetrics and?Gynecology?as well as?Loretta zacarias abbreviations. The above plan of care was based solely on the diagnoses for which a consultation was requested. ?More frequent testing may be indicated based on her other medical/obstetrical conditions. The management of other or medical conditions is beyond the scope of requested consultation and will continue to be followed by the primary advertising director or primary care provider. Thank you [...] procedures Referring and communicating with other health intensive care nurse (not separately reported) Documenting clinical information in the electronic or other health record Independently interpreting results (not separately reported) and communicating results to the patient/family/caregiver Care coordination (not separately reported) documented in this encounter [employer] 08-06-2024 Telephone encounter Note Can we have her schedule for a follow up appointment. Can be virtual or in person. Thanks, AM [facility] Work Phone: 08-06-2024 Miscellaneous Notes Can we have her schedule for a follow up appointment. Can be virtual or in person. Thanks, AM documented in this encounter [facility] 08-05-2024 History of Present illness [...] nursing note reviewed. Exam conducted with a forest fire prevention manager present. Vitals: Estimated body mass index is 36.44 kg/m as calculated from the following: Height as of 8/27/24: 5' 5 . Weight as of this [...] without difficulty and patient was given [facility] order to have obtained. Orders Placed This Encounter Procedures CHLAMYDIA TRACHOMATIS (GENITO/STI) Neisseria gonorrhea DNA probe, direct Alpha fetoprotein, maternal POCT urinalysis dipstick manually resulted Follow Up: Patient is to return to our office in 4 weeks for routine OB appointment Documented by Annika Silva LPN on behalf of: TOMASZ Rizvi documented in this encounter [facility] 07-03-2024 History of Present illness Narrative Reason [...] current . Patient is being referred to [facility] for her twin , gave her information about who she will be seeing there. No orders of the defined types were placed in this encounter. Follow Up: Patient is to return to office in 4 weeks for routine OB appointment. Documented by Ibis Sandoval on behalf of: TOMASZ Rizvi documented in this encounter [facility] 07-02-2024 History of Present illness Narrative Images from the original note were not included. [facility] for General Neurology Follow Up / Established Virtual Visit I have communicated my name and active licensure. The patient's identity and physical location were verified at the time of this visit. Either the patient or their legal claims service representative has been informed of the risks and benefits of -- and alternatives to -- treatment through a remote evaluation and consents to proceed with the evaluation remotely. Individuals who were included in, or assisted with the encounter were: Madyson Saeman APRN.RESIDENTIAL FINISH CARPENTER Chief Complaint/Issues: Madyson Mai is a 23 year old female seen in the [facility] for General Neurology for: POTS [...] Plan 07/02/2024 - General Neurology, Joie Seaman, JOHNNY.RESIDENTIAL FINISH CARPENTER ASSESSMENT Madyson Mai is a 23 year [...] which included preparing to see the patient, [id number]-[id number] patient care, completing clinical documentation, obtaining and/or [...] and warrants attention documented in this encounter [facility] 07-02-2024 Note HNO ID: [id number] Author: JOIE SEAMAN APRN.CNP Service: ? Author Type: Nurse Practitioner Type: Progress Notes Filed: 07/02/2024 19:57 Note Text: [facility] for General Neurology Follow Up / Established Virtual Visit I have communicated my name and active licensure. The patient's identity and physical location were verified at the time of this visit. Either the patient or their legal claims service representative has been informed of the risks and benefits of -- and alternatives to -- treatment through a remote evaluation and consents to proceed with the evaluation remotely. Individuals who were included in, or assisted with the encounter were: Madyson Mai Joie Seaman APRN.RESIDENTIAL FINISH CARPENTER Chief Complaint/Issues: Madyson Mai is a 23 year old female seen in the [facility] for General Neurology for: POTS [...] Assessment AND Plan 07/02/2024 - General Neurology, Jioe Seaman APRN.RESIDENTIAL FINISH CARPENTER ASSESSMENT Madyson Mai is a 23 year [...] Mostly Moderately S (more content not included)... [facility] 06-04-2024 History of Present illness [...] nursing note reviewed. Exam conducted with a forest fire prevention manager present. Vitals: Estimated body mass index is [...] possibly adding medication. Pt being referred to [facility] for TWIN gestation. Expectations throughout regarding labs, ultrasounds, and appointments have been discussed with the patient in detail. It was reiterated that the patient is to drink 6-8 glasses of water a day, eat 6 small meals a day, do not consume raw or undercooked meat, and stay away from [facility]. Patient has been consulted regarding any further do's and don'ts of . Patient voiced understanding and all questions and concerns were answered. Orders Placed This Encounter Procedures POCT urinalysis dipstick manually resulted Follow Up: Patient is to return in 4 weeks for routine OB appointment. Documented by Camilla Bar LPN on behalf of: Osei Malik DO documented in this encounter [facility] 05-23-2024 History of Present illness Narrative Reason [...] providers found * documented in this encounter [facility] 05-20-2024 History of Present illness Narrative Images [...] topical cream for less systemic absorption. Consider intensive care nurse. Can provide pt with referral to PT if symptoms do not improve with the above. X-rays not yet indicated, especially as pt is . Follow up if symptoms worsen or fail to improve. documented in this encounter [facility] 03-20-2024 History of Present illness Narrative Images from the original note were not included. [facility] for Neuromuscular Medicine Follow-Up VIRTUAL VISIT This is a virtual visit using [employer] and [employer] Video Visit. It required patient-provider interaction for the medical decision making as documented below. I have communicated my name and active licensure. The patient's identity and physical location were verified at the time of this visit. Either the patient or their legal claims service representative has been informed of the [...] which included preparing to see the patient, [id number] patient care, completing clinical documentation, obtaining and/or reviewing separately obtained history, performing a medically appropriate examination, counseling and educating the patient/family/caregiver, and ordering medications, tests, or procedures. Jyoti Dickey PA-C Neuromuscular Medicine [facility] [place]. [address] Appointment: [phone] During our virtual visit encounter we discussed [...] problem? : Mild documented in this encounter [facility] 03-20-2024 Note HNO ID: [id number] Author: JYOTI DICKEY PA-C Service: ? Author Type: Physician Pastry Artist Type: Progress Notes Filed: 03/20/2024 15:17 Note Text: [facility] for Neuromuscular Medicine Follow-Up VIRTUAL VISIT This is a virtual visit using [employer] Video Visit. It required patient-provider interaction for the medical decision making as documented below. I have communicated my name and active licensure. The patient's identity and physical location were verified at the time of this visit. Either the patient or their legal claims service representative has been informed of the [...] the mean hea (more content not included)... [facility] 11-30-2023 History of Present illness Narrative Images from the original note were not included. [facility] for Neuromuscular Medicine New Patient [...] experienced LOC while walking up the stairs. [place] prodromal symptoms including lightheadedness and tunnel vision. [...] Plantarflexion 5/5 5/5 Movement/Coordination Finger-to- nose-finger and tivw-jt-xfam intact bilaterally. No evidence of ataxia arms. [...] which included preparing to see the patient, [id number]-io-lafb patient care, completing clinical documentation, obtaining and/or [...] on 11/30/23. Jyoti Dickey PA-C Neuromuscular Medicine [address] [place] [address]. [id number] Appointment: [phone] 1. This office note has been dictated [...] problem? : Moderate documented in this encounter [facility] 11-30-2023 Note HNO ID: [id number] Author: JYOTI DICKEY PA-C Service: ? Author Type: Physician Pastry Artist Type: Progress Notes Filed: 11/30/2023 11:14 Note Text: [facility] for Neuromuscular Medicine New Patient [...] experienced LOC while walking up the stairs. [place] prodromal symptoms including lightheadedness and tunnel vision. [...] breathing: - Tac (more content not included)... [facility] 11-12-2023 Note HNO ID: [id number] Author: ?, ?, ? Service: ? Author [...] Care Visit completed when applicable. Gauri Harris [facility] 11-12-2023 History of Present illness [...] applicable. Gauri Harris documented in this encounter [facility] 10-10-2023 Note HNO ID: [id number] Author: AURORA SANTIAGO PA-C Service: ? Author Type: Physician Pastry Artist Type: Progress Notes Filed: 10/10/2023 16:33 Note Text: [facility] for Neuromuscular Medicine New Patient [...] No current facility-adminis (more content not included)... [facility] 10-10-2023 Note HNO ID: [id number] Author: ANGELIQUE RUTH MD Service: ? Author [...] VE Couplets or VE Triplets were present. [facility] 07-20-2023 Telephone encounter Note Call to Madyson to discuss referral to dysautonomia clinic. Informed her that we are unable to provide dysautonomia evaluation at this time. Provided number for [facility] scheduling service. No other needs at this time. [facility] 07-20-2023 Miscellaneous Notes Call to Madyson to discuss referral to dysautonomia clinic. Informed her that we are unable to provide dysautonomia evaluation at this time. Provided number for [facility] scheduling service. No other needs at this time. documented in this encounter [facility] 07-10-2023 Note HNO ID: [id number] Author: Jose Armando Grey DO Service: ? Author Type: Physician Type: Progress Notes Filed: 07/10/2023 10:08 AM Note Text: [facility] Office Visit Documentation Note [facility] Sports Medicine Orthopaedic and Rheumatologic [place] HISTORY OF PRESENT ILLNESS (HPI) CHIEF COMPLAINT / REASON FOR VISIT SERVICE DATE: July 10, 2023 PCP: No primary care provider on file. Madyson Schmid is here today at request of Dr. Jose Armando Schmid specifically for consultation of my opinion in regards to the chief complaint listed below. Correspondence will be shared today via the [email or web address] electronic health record or through regular mail, [...] expectations. 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 Reaction knee brace Consider [place] toradol, did discuss orthobiologics Follow up: Films prior to visit: Written instructions (see patient instructions) and verbal health education given to patient. Patient verbalizes understanding and agrees with the treatment plan. Jose Armando Grey D.O. [facility] Orthopaedic and Rheumatologic Supplier Quality Engineer, [facility] [employer] Program Team Physician, [facility] [employer] Consulting Physician, Kenyon Martin Nagel, Bill Board Poster [phone] [facility] 07-10-2023 History of Present illness Narrative Images from the original note were not included. [facility] Office Visit Documentation Note [facility] Sports Medicine Orthopaedic and Rheumatologic [place] HISTORY OF PRESENT ILLNESS (HPI) CHIEF COMPLAINT / REASON FOR VISIT SERVICE DATE: July 10, 2023 PCP: No primary care provider on file. Madyson Schmid is here today at request of Dr. Jose Armando Schmid specifically for consultation of my opinion in regards to the chief complaint listed below. Correspondence will be shared today via the [email or web address] electronic health record or through regular mail, [...] expectations. 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 Reaction knee brace Consider [place] toradol, did discuss orthobiologics Follow up: Films prior to visit: Written instructions (see patient instructions) and verbal health education given to patient. Patient verbalizes understanding and agrees with the treatment plan. Jose Armando Grey D.O. [facility] Orthopaedic and Rheumatologic Supplier Quality Engineer, [facility] [employer] Program Team Physician, [facility] [employer] Consulting Physician, Kenyon Martin Kristina Marybethrao, Bill Board Poster [phone] documented in this encounter [facility] 12-28-2022 History of Present illness [...] surgery Evaluated by DR Case ([facility] [place]) in 2020 no rheum issue found and [...] Swollen Glands: No documented in this encounter [facility] 07-31-2022 History of Present illness [...] surgery Evaluated by DR Case ([facility] [place]) in 2020 no rheum issue found and [...] Swollen Glands: No documented in this encounter [facility] 07-10-2022 History of Present illness [...] she did get a second opinion in [place], and no change in medication was suggested [...] with paucity of objective findings on the [id number]. Abnormal tilt table test, with a combination [...] I will defer that to Dr. Maza -[facility] [address] DO Work Phone: 06-12-2022 Note Pre-procedure Verifi cation and Time Out: Pre-Procedure Verification and Time Out: Procedure Locationbedside PRE-PROCEDURE Verificationcompleted TIME OUT - Final Verificationcompleted immediately prior to procedure start General Information: Anesthesia Critical Care: Non-Anesthesia Date/Time of Procedure: 12-Jun-2022 Post-Procedure Diagnosis: syncope Procedure Name: tilt table test Findings: grossly normal anatomy Procedure performed by: nv Pastry Artist(s): none Estimated Blood Loss (mL): none Specimen: [...] Note Completion Last Updated: 14-Jun-2022 11:56 by Annlaee Maza) [facility] 03-24-2022 History of [...] while walking to the bathroom.She will see silk snapper in the near future, she had her pulmonary function test which I reviewed, there is concern for chronic asthma, but no reactive airway disease.She has 3 dogs that she had, and 1 cat at home.She is not orthostatic. She is feeling palpitations quite a bit.Results of the pulmonary function test and a Micah FOODSCROOGE was reviewed. Also reviewed stress test and [...] that, we will have to schedule at [facility], and patient is okay with driving.4. Lifestyle modifications such as regular aerobic activity as tolerated, excessive sodium intake, and possibly low-dose beta-blockers can be tried. If her breathing gets worse on the beta-blockers, then she should stop it. We will decide after seen by pulmonary, and also after the results of culpable test are available. [facility] Work Phone: 03-24-2022 History of [...] while walking to the bathroom.She will see silk snapper in the near future, she had her pulmonary function test which I reviewed, there is concern for chronic asthma, but no reactive airway disease.She has 3 dogs that she had, and 1 cat at home.She is not orthostatic. She is feeling palpitations quite a bit.Results of the pulmonary function test and a Micah FOODSCROOGE was reviewed. Also reviewed stress test and [...] that, we will have to schedule at [facility], and patient is okay with driving.4. Lifestyle modifications such as regular aerobic activity as tolerated, excessive sodium intake, and possibly low-dose beta-blockers can be tried. If her breathing gets worse on the beta-blockers, then she should stop it. We will decide after seen by pulmonary, and also after the results of culpable test are available. -[facility] 250 DO Work Phone: 02-02-2022 Miscellaneous Notes [...] P Mathai, MD documented in this encounter [facility] 01-25-2022 History of Present illness [...] February Evaluated by DR Case ([facility] [place]) in 2020 no rheum issue found and [...] February Evaluated by DR Case ([facility] [place]) in 2020 no rheum issue found and [...] Irvin Hanna MD documented in this encounter [facility] 01-10-2022 Evaluation note Encounter Date [...] will go ahead with her evaluation in [facility]. [employer] Other 01-17-2022 Evaluation note* Encounter Date Diagnosis [...] day as needed for pain and swelling. [employer] Other 07-01-2021 History of Present illness Narrative* [...] heart murmur and has been transferred to [facility] * There is no family [...] needed, treatment options, risks, benefits, and imponderables. [place] [employer] lifestyle changes and behavioral modification discussed. All questions answered in detail. Counseling over 50% visit regarding above. Patientappreciative of care. * At the end the office visit, she did report that she will be seeing an group insurance specialist in [place]. We did discuss that she could hold [...] errors as software dictation application being used. [facility] Work Phone: [phone]) 805-999208-25-2020 History of Present illness Narrative* She is [...] exposed to secondhand smoke from her mother. [facility]-Jose Cheek DO Work Phone: [phone]) 148-458007-09-2020 History of Present illness Narrative* Patient is [...] twin brother had [facility] be [facility] to [facility], and has history of heart murmur. [...] [facility] Work Phone: 1(358) 372-232907-01-2020 History of Present illness Narrative* Patient is [...] arise, * Sincerely, * Melodie alcaraz MD [place] [address] DO Work Phone: [phone] History of Present illness Narrative* Patient is [...] arise, * Sincerely, * Melodie alcaraz MD [facility] [employer] DO Work Phone: 1([phone]) 446-961101-01-2008 History general Narrative - Reported* Type Description Date Medical History general health good Surgical History tonsillectomy and adenoidectomy 09/2007 [employer] Other 01-01-2008 History general Narrative - Reported* Type Description Date Medical History general health good Surgical History tonsillectomy and adenoidectomy 09/2007 Surgical History right knee cleaned up scar tiss ue 2020 [employer] Other Chief complaint Narrative - ReportedMADYSON SCHMID is being seen for a cardiovascular evaluation of abnormal test(s) results and dyspnea.[facility] [employer] DO Work Phone: Chibd complaint Narrative - ReportedMADYSON SCHMID is being seen for a cardiovascular evaluation of abnormal test(s) results and dyspnea.[facility] Work Phone: Evaluation + Plan note No data available for this section [facility] Pain and swelling of knee, right- Primary Joint stiffness Stiffness of joint, not elsewhere classified, unspecified site documented in this encounter [facility] noteNo assessment information availableGuernsey [facility] Work Phone: Evaluation note* Diagnosis Pain and swelling of knee, right- Primary Joint stiffness Stiffness of joint, not elsewhere classified, unspecified site Inflammatory arthritis Unspecified inflammatory polyarthropathy documented in this encounter [facility]* Diagnosis Pain and swelling of knee, right- Primary Joint stiffness Stiffness of joint, not elsewhere classified, unspecified site documented in this encounter [facility]* Diagnosis Right knee pain, unspecified chronicity- Primary documented [facility] this encounter [facility]* Diagnosis Chronic pain of right knee- Primary Tendinopathy of gluteal region Unspecified disorder of synovium, tendon, and bursa documented [facility] Diagnosis Orthostatic lightheadedness- Primary Dizziness and giddiness documented in this encounter [facility] Diagnosis POTS (postural orthostatic tachycardia syndrome)- Primary Tachycardia, unspecified documented [facility] Diagnosis POTS (postural orthostatic tachycardia syndrome)- Primary Tachycardia, unspecified documented [facility] encounter [facility] Diagnosis POTS (postural orthostatic tachycardia syndrome)- Primary Tachycardia, unspecified Near syncope Syncope and collapse documented in this encounter [facility]* Diagnosis Second trimester state, incidental 14 weeks gestation of documented in this encounter [facility] note* Diagnosis Thumb pain, [...] Leg cramping Heartburn documented in this encounter [facility] Healthcare[facility] note* Diagnosis Thumb pain, [...] of state, incidental [facility] Diagnosis Thumb pain, [...] trimester- Primary documented in this encounter [facility] Diagnosis Thumb pain, right- [...] of control unspecified documented in this encounter [facility]* Diagnosis Dichorionic diamniotic twin in third trimester- Primary [facility] Diagnosis Thumb pain, right- [...] gestation of documented in this encounter [facility]* Diagnosis Dichorionic diamniotic twin [...] heart murmur and had been transferred to [facility] * There is no change [...] patient that she saw Dr. Muñiz at [facility] for second opinion regarding neurally mediated syncope and near syncope. He agreed with evaluation and management and patient opted to follow-up here at [facility] in [place]. * Zio patch August 2022. All rhythms [...] heart rate variability. * Asthma. Previously tolerated beta-quenitn. * No family history of sudden cardiac [...] needed, treatment options, risks, benefits, and imponderables. [employer] lifestyle changes and behavioral modification discussed. All questions answered in detail. Counseling over 50% visit regarding above. Patient appreciative of care. * Grammar * Please excuse grammatical or dictation errors as software dictation application being used. [facility] 320 DO Work Phone: History of Present illness Narrative* The patient states she has been generally stable since the last visit. * Symptoms: denies chest pain at rest, denies exertional chest pain, denies dyspnea, stable fatigue, denies exercise intolerance, stable palpitations, denies edema, denies orthopnea, stable dizziness and stable orthostatic dizziness. * Disease Monitoring: [facility] 600 DO Work Phone: Hospital Discharge instructions No data available for this section [facility] on filedocumented in this encounter [facility] SystemInstructionsNot on filedocumented in this encounter [facility] SystemInstructionsNot on filedocumented in this encounter [facility] on filedocumented in this encounter [facility]ructionsNot on filedocumented in this encounter [facility] No data available for this section [facility] for referral (narrative)* Diagnostic Procedure Only (Routine) - Pending Review Specialty Diagnoses / Procedures Referred By Contac t Referred To Contact XR IMAGING Diagnoses Right knee pain, unspecified chronicity Procedures XR KNEE GENERAL 4V AP BOTH/PA BOTH/LAT/MERC RIGHT RADIOLOGIC EXAM KNEE COMPLETE 4/[place] [address] [place] [address] [place] [address] Referral ID Status Reason Start Date Expiration Date Visits Requested Visits Authorized [id number] Pending Review Auto-Generat ed Referral 3 08/04/2024 1 1 [facility] for visit Narrativerash knee referral from Cj Jaimes, She gets a funny rash on her knee and toesNorth Thotz Other Summary Purpose Family History Unknown Family [...] or prosecute any alcohol or drug abuse patient.[facility] the event this information is protected by the Federal Confidentiality of Alcohol and Drug Abuse Patient Records regulations: The Federal rules restrict any use of the information to criminally investigate or prosecute any alcohol or drug abuse patient.[facility] HospitalIn the event this information is protected by the Federal Confidentiality of Alcohol and Drug Abuse Patient Records regulations: The Federal rules restrict any use of the information to criminally investigate or prosecute any alcohol or drug abuse patient.[facility] HospitalIn the event this information is protected by the Federal Confidentiality of Alcohol and Drug Abuse Patient Records regulations: The Federal rules restrict any use of the information to criminally investigate or prosecute any alcohol or drug abuse patient.[facility] Hospital[facility] the event this information is protected by the Federal Confidentiality of Alcohol and Drug Abuse Patient Records regulations: The Federal rules restrict any use of the information to criminally investigate or prosecute any alcohol or drug abuse patient.[facility] HospitalIn the event this information is protected by the Federal Confidentiality of Alcohol and Drug Abuse Patient Records regulations: The Federal rules restrict any use of the information to criminally investigate or prosecute any alcohol or drug abuse patient.[facility] HospitalIn the event this information is protected by the Federal Confidentiality of Alcohol and Drug Abuse Patient Records regulations: The Federal rules restrict any use of the information to criminally investigate or prosecute any alcohol or drug abuse patient.[facility] HospitalIn the event this information is protected by the Federal Confidentiality of Alcohol and Drug Abuse Patient Records regulations: The Federal rules restrict any use of the information to criminally investigate or prosecute any alcohol or drug abuse patient.[facility] HospitalIn the event this information is protected by the Federal Confidentiality of Alcohol and Drug Abuse Patient Records regulations: The Federal rules restrict any use of the information to criminally investigate or prosecute any alcohol or drug abuse patient.[facility] HospitalIn the event this information is protected by the Federal Confidentiality of Alcohol and Drug Abuse Patient Records regulations: The Federal rules restrict any use of the information to criminally investigate or prosecute any alcohol or drug abuse patient.[facility] HospitalIn the event this information is protected by the Federal Confidentiality of Alcohol and Drug Abuse Patient Records regulations: The Federal rules restrict any use of the information to criminally investigate or prosecute any alcohol or drug abuse patient.[facility] HospitalIn the event this information is protected by the Federal Confidentiality of Alcohol and Drug Abuse Patient Records regulations: The Federal rules restrict any use of the information to criminally investigate or prosecute any alcohol or drug abuse patient.[facility] HospitalIn the event this information is protected by the Federal Confidentiality of Alcohol and Drug Abuse Patient Records regulations: The Federal rules restrict any use of the information to criminally investigate or prosecute any alcohol or drug abuse patient.[facility] Reason for Visit (unrecogniz ed [...] section and content) DATE CREATED AUTHOR 02/03/2022 [facility] DATE CREATED AUTHOR AUTHOR'S ORGANIZ ATION 06/24/2022 [place] [facility] DATE CREATED AUTHOR AUTHOR'S ORGANIZ ATION 09/15/2022 [facility] DATE CREATED AUTHOR AUTHOR'S ORGANIZ ATION 03/16/2023 [facility] DATE CREATED AUTHOR AUTHOR'S ORGANIZ ATION 06/15/2023 [facility] DATE CREATED AUTHOR AUTHOR'S ORGANIZ ATION 07/11/2023 [facility] DATE CREATED AUTHOR AUTHOR'S ORGANIZ ATION 03/15/2024 [facility] DATE CREATED AUTHOR AUTHOR'S ORGANIZ ATION 04/15/2024 [facility] DATE CREATED AUTHOR AUTHOR'S ORGANIZ ATION 07/11/2024 [facility] DATE CREATED AUTHOR AUTHOR'S ORGANIZ ATION 07/26/2024 [facility] DATE CREATED AUTHOR AUTHOR'S ORGANIZ ATION 09/05/2024 [facility] DATE CREATED AUTHOR AUTHOR'S ORGANIZ ATION 11/06/2024 [facility] DATE CREATED AUTHOR AUTHOR'S ORGANIZ ATION 11/11/2024 [facility] EPIC DATE CREATED AUTHOR AUTHOR'S ORGANIZ ATION 11/14/2024 [facility] Care Teams (unrecognized sec tion and content) Team Status: Inactive Member Role Status Dates Ibis Renteria , FASTENER SEWING MACHINE OPERATOR-C Primary Care Provider Marcelina Davidson NP-C Attending Provider Active Team Status: Inactive Member Role Status Dates Ibisniharika Renteria , FASTENER SEWING MACHINE OPERATOR-C Primary Care Provider Activ e Melodie Alcaraz MD Attending Provider Active Team Status: Inactive Member Role Status Dates Ibis Renteria , FASTENER SEWING MACHINE OPERATOR-C Primary Care Provider Activ e Melodie Alcaraz MD Attending Provider Active Álvaro Osborn MD Referring Provider Active Team Status: Active Member Role Status Dates Ibis Maggy Renteria , FASTENER SEWING MACHINE OPERATOR-C Primary Care Provider Activ e Team Status: Inactive Member Role Status Dates Ibis Maggy Renteria , FASTENER SEWING MACHINE OPERATOR-C Primary Care Provider Activ e Dyllan Pearce APRN Emergency Provider Active Team Status: Inactive Member Role Status Dates Ibiseren Retneria , FASTENER SEWING MACHINE OPERATOR-C Primary Care Provider Activ e Christina Perez APRN Attending Provider Active Team Status: Inactive Member Role Status Dates Ibiseren Renteria , FASTENER SEWING MACHINE OPERATOR-C Primary Care Provider Activ e Carlitos Nguyen Jr, DO Attending Provider Active Naval Designer Relationship Specialty Start Date End Date Ibis Renteria CNP [address] [place], [place] [id number] PCP - General Nurse Practitioner 07/09/23 Naval Designer Relationship Specialty Start Date End Date Ibis Renteria CNP [address] [place] [address] PCP - General Nurse Practitioner 07/09/23 Team Status: Inactive Member Role Status Dates Ibiseren Renteria , FASTENER SEWING MACHINE OPERATOR-C Primary Care Provider Activ e Haris Martino DO Emergency Provider Active Team Status: Inactive Member Role Status Dates Ibiseren Renteria , FASTENER SEWING MACHINE OPERATOR-C Primary Care Provider Activ e Nam Barnes DO [facility] Attending Provider Active Naval Designer Relationship Specialty Start Date End Date Jb Mandujano MD [address] [address] PCP - General Family Medicine 05/20/24 Osei Malik DO [address] [place] [address] [place] [address] Referring Physician Obstetrics and Gynecology 06/05/24 Flori Gil PA [address] [place] [address] Physician Pastry Artist Obstetrics and Gynecology 06/05/24 Naval Designer Relationship Specialty Start Date End Date Jb Mandujano MD [address] [place] [address] [place] [address] PCP - General Family Medicine 05/20/24 Osei Malik DO [facility] [address] Referring Physician Obstetrics and Gynecology 06/05/24 Flori Gil PA [facility] [address] Physician Pastry Artist Obstetrics and Gynecology 06/05/24 Naval Designer Relationship Specialty Start Date End Date Jb Mandujano MD [address] [facility] [address] [place] [address] PCP - General Family Medicine 05/20/24 Osei Malik DO [facility] [address] Referring Physician Obstetrics and Gynecology 06/05/24 Flori Gil PA [address] [place] [address] Physician Pastry Artist Obstetrics and Gynecology 06/05/24 Naval Designer Relationship Specialty Start Date End Date Jb Mandujano MD [address] [facility] [address] [place] [address] PCP - General Family Medicine 05/20/24 Osei Malik, DO [address] [place] [address] Referring Physician Obstetrics and Gynecology 06/05/24 Flori Gil PA [address] [place] [address] Physician Pastry Artist Obstetrics and Gynecology 06/05/24 Naval Designer Relationship Specialty Start Date End Date Jb Mandujano MD [address] [place] [address] PCP - General Family Medicine 05/20/24 Osei Malik, DO [address] [place] [address] Referring Physician Obstetrics and Gynecology 06/05/24 Flori Gil PA [address] [place] [address] Physician Pastry Artist Obstetrics and Gynecology 06/05/24 Naval Designer Relationship Specialty Start Date End Date Jb Mandujano MD [address] [facility] [address] [place] [address] PCP - General Family Medicine 05/20/24 Osei Malik, DO [address] [place] [address] Referring Physician Obstetrics and Gynecology 06/05/24 Flori Gil PA [address] [place] [address] Physician Pastry Artist Obstetrics and Gynecology 06/05/24 Naval Designer Relationship Specialty Start Date End Date Jb Mandujano MD [address] [facility] [address] [place] [address] PCP - General Family Medicine 05/20/24 Osei Malik DO [address] [place] [address] Referring Physician Obstetrics and Gynecology 06/05/24 Flori Gil PA [address] [place] [address] Physician Pastry Artist Obstetrics and Gynecology 06/05/24 Naval Designer Relationship Specialty Start Date End Date Jb Mandujano MD 112 [facility] [address] [place] [address] PCP - General Family Medicine 05/20/24 Osei Malik DO [address] [place] [address] Referring Physician Obstetrics and Gynecology 06/05/24 Flori Gil PA [address] [place] [address] Physician Pastry Artist Obstetrics and Gynecology 06/05/24 Naval Designer Relationship Specialty Start Date End Date Jb Mandujano MD 112 [facility] [address] [place] [address] PCP - General Family Medicine 05/20/24 Osei Malik DO [address] [place] [address] Referring Physician Obstetrics and Gynecology 06/05/24 Flori Gil PA [address] [place] [address] Physician Pastry Artist Obstetrics and Gynecology 06/05/24 Naval Designer Relationship Specialty Start Date End Date Jb Mandujano MD [address] [facility] [address] [place] [address] PCP - General Family Medicine 05/20/24 Osei Malik DO [address] [facility] [place] [address] Referring Physician Obstetrics and Gynecology 06/05/24 Flori Gil PA [address] [place] [address] [place] [address] Physician Pastry Artist Obstetrics and Gynecology 06/05/24 Naval Designer Relationship Specialty Start Date End Date Jb Mandujano MD [address] [facility] [address] [place] [address] PCP - General Family Medicine 05/20/24 Naval Designer Relationship Specialty Start Date End Date Jb Mandujano MD [address] [facility] [address] [place] [address] PCP - General Family Medicine 05/20/24 Naval Designer Relationship Specialty Start Date End Date Jb Mandujano MD [address] [facility] [address] [place] [address] PCP - General Family Medicine 05/20/24 Naval Designer Relationship Specialty Start Date End Date Jb Mandujano MD [address] [place] [address] PCP - General Family Medicine 05/20/24 Naval Designer Relationship Specialty Start Date End Date Jb Mandujano MD [address] [place] [address] PCP - General Family Medicine 05/20/24 Osei Malik, DO [address] [place] [address] Referring Physician Obstetrics and Gynecology 06/05/24 Flori Gil PA [address] [place] [address] Physician Pastry Artist Obstetrics and Gynecology 06/05/24 Naval Designer Relationship Specialty Start Date End Date Jb Mandujano MD 112 [facility] 110 [place] [address] PCP - General Family Medicine 05/20/24 Osei Malik, [address] [place] [address] Referring Physician Obstetrics and Gynecology 06/05/24 Flori Gil PA [address] [place] [address] Physician Pastry Artist Obstetrics and Gynecology 06/05/24 Naval Designer Relationship Specialty Start Date End Date Jb Mandujano MD [address] [address] [place] [address] PCP - General Family Medicine 05/20/24 Osei Malik, DO [address] [place] [address] Referring Physician Obstetrics and Gynecology 06/05/24 Flori Gil PA [address] [place] [address] Physician Pastry Artist Obstetrics and Gynecology 06/05/24 Naval Designer Relationship Specialty Start Date End Date Jb Mandujano MD [address] [facility] [address] [place] [address] PCP - General Family Medicine 05/20/24 Osei Malik DO [address] [place] [address] Referring Physician Obstetrics and Gynecology 06/05/24 Flori Gil PA [address] [place] [address] Physician Pastry Artist Obstetrics and Gynecology 06/05/24 Naval Designer Relationship Specialty Start Date End Date Ander Boateng MD [address] [place] [address] PCP - General 11/30/17 Team Status: Inactive Member Role Status Dates Osei Malik DO Attending Provider Active Start : September 25, 2024 End: September 25, 2024 Naval Designer Relationship Specialty Start Date End Date Jb Mandujano MD [address] [address] [place] [address] PCP - General Family Medicine 05/20/24 Osei Malik DO [address] [place] [address] Referring Physician Obstetrics and Gynecology 06/05/24 Flori Gil PA [address] [place] [address] Physician Pastry Artist Obstetrics and Gynecology 06/05/24 Naval Designer Relationship Specialty Start Date End Date Jb Mandujano MD [address] [address] [place] [address] PCP - General Family Medicine 05/20/24 Osei Malik DO [address] [place] [address] Referring Physician Obstetrics and Gynecology 06/05/24 Flori Gil PA [address] [place], [place] [id number] Physician Pastry Artist Obstetrics and Gynecology 06/05/24 Naval Designer Relationship Specialty Start Date End Date Ander Boateng MD [address] [place] [address] PCP - General 11/30/17 Naval Designer Relationship Specialty Start Date End Date Jb Mandujano MD [address] [address] [place] [address] PCP - General Family Medicine 05/20/24 Osei Malik, [address] [place], [place] [id number] Referring Physician Obstetrics and Gynecology 06/05/24 Flori Gil PA [address] [place], [place] [id number] Physician Pastry Artist Obstetrics and Gynecology 06/05/24 Naval Designer Relationship Specialty Start Date End Date Jb Mandujano MD [address] [address] [place] [address] PCP - General Family Medicine 05/20/24 Osei Malik DO [address] [place] [place], [place] [id number] Referring Physician Obstetrics and Gynecology 06/05/24 Flori Gil PA [address] [facility] [address] [place], [place] [address] Physician Pastry Artist Obstetrics and Gynecology 06/05/24 Naval Designer Relationship Specialty Start Date End Date Jb Mandujano MD [address] [address] PCP - General Family Medicine 05/20/24 Osei Malik DO [address] [place], [place] [address] Referring Physician Obstetrics and Gynecology 06/05/24 Flori Gil PA [address] [place] [place], [place] [address] Physician Pastry Artist Obstetrics and Gynecology 06/05/24 Naval Designer Relationship Specialty Start Date End Date Ander Boateng MD [address] [place], [place] [id number] PCP - General 11/30/17 Naval Designer Relationship Specialty Start Date End Date Ander Boateng MD [address] [place] [address] PCP - General 11/30/17 Naval Designer Relationship Specialty Start Date End Date Ander Boateng MD [address] [place] [address] PCP - General 11/30/17 Naval Designer Relationship Specialty Start Date End Date Ander Boateng MD [address] [place] [id number] PCP - General 11/30/17 Naval Designer Relationship Specialty Start Date End Date Jb Mandujano MD 112 [facility] 110 [place] [address] PCP - General Family Medicine 05/20/24 Osei Malik DO [address] [place], [place] [id number] Referring Physician Obstetrics and Gynecology 06/05/24 Flori Gil PA [address] [place] [place], [place] [phone] Physician Pastry Artist Obstetrics and Gynecology 06/05/24 Goals (unrecognized section [...] BE BASED ON THE PRIMARY CLINICAL RECORDS. [facility]. provides no warranty or guarantee of the accuracy or completeness of information in this document.
[2024-11-22 13:16] VITALS: BP 134/75; PULSE 100
[2024-11-22] MEDS: BETAMETHASONE ACE/BETAMETHASONE SOD PHOS 30 MG/5 ML 12 MG IM (13:43)
== END 2024-11-22 13:49 | disposition home or self-care (01) ==
LOC: FBCO 00:28 → FBC 13:02
PROVIDERS: PCP Family Medicine; Visit Provider Obstetrics & Gynecology
DX: O26.893 Other specified pregnancy related conditions, third trimester (principal); Z3A.35 35 weeks gestation of pregnancy
CPT/HCPCS: 59025; 96372; J0702

== ENCOUNTER 2024-11-26 01:30 | Outpatient (OUT) | payer OTHER, MEDICAID, SELFPAY ==
--- OUTSIDE RECORDS SUMMARY | 2024-11-26 01:35 | XMS_ITS | CCD ---
Author Organization [facility] Care Team Providers Care Fold Skiver Name Role Phone Unavailable Primary Care Provider Unavailsoniya e Christina Pearce Unavailable Ok Mckeon Unavailable Ibis Renteria Unavailable Unavailable Unavailable CARLOS Renteria Primary Care Provider MD Melodie Alcaraz Attending Provider [phone] MD Álvaro Osborn Referring Provider CARLOS [...] Primary Care Unavail able Link, Dr. Annalee oTrres Attending Unavailab le Alcaraz, Dr. Sewell Referring [...] Myra Ibis GOODSON Primary Care Provider Myra, WELLNESS PROGRAM MANAGER-C Ibis Winter Primary Care Provider DO Haris Martino Emergency Provider [phone] DO Nam Barnes Attending Provider JB MANDUJANO Primary Care Physician [phone] Rinkes, Celeste Admitting Unavailable Rinkes, Celeste Attending Unavailable Jocelin FELIX Attending Unavailable Mae, FURNACE ROOM SUPERVISOR Krista L Attending Unavailable Mae, FURNACE ROOM SUPERVISOR Krista L Attending Unavailable Unavailable Primary Care Provider Unavailabl e Rinkes, Celeste Attending Unavailable Rinkes, Celeste Admitting Unavailable Rinkes, Celeste Attending Unavailable Rinkes, Celeste Admitting Unavailable Jb Mandujano MD Primary Care Provider [phone] Osei Malik DO Unavailable Flori Sam Unavailable [facility], Nam Brewer Attending [facility]available [facility] Brewer Admitting Unavailable Ibis Renteria Primary Care Unavailable Rinradha, Celeste Attending Unavailable Rinkes, Celeste Admitting Unavailable SANTAIGO, AURORA Attending Unavailable SANTIAGO, AURORA Referring Unavailable SANTIAGO, AURORA Referring Unavailable SANTIAGO, AURORA Referring Unavailable SANTIAGO, AURORA Referring Unavailable NOBLE, JYOTI Attending Unavailable NOBLE, JYOTI Attending Unavailable JOIE SEAMAN Attending Unavailable NOBLE, JYOTI Attending Unavailable Kilo [facility] Primary Care Provider Helena DO, Osei Attending Provider [phone] Helena, Osei Attending Unavailable Helena, Osei Admitting [...] / oxyCODONE; Translations: [acetaminophen-o xycodone] Drug Allergy [facility] Comment on above: no narcotics, GI ups et Chlorhexidine (1 source) Chlorhexidine; Translations: [chlorhexidine topical] Drug Allergy Itching [facility] Corticosteroids (1 source) predniSONE; Translations: [prednisone] Drug Allergy [facility] (15 sources) Morphinan opioid; Translations: [OPIOIDS - MORPHINE ANALOGUES] Propensity to adverse reactions to drug 01-26-20 Other: See Comments [facility] (20 sources) predniSONE; Translations: [predniSONE] Drug Allergy 01-26-20 Other: See Comments, Dizziness [facility] (20 sources) prednisoLONE; Translations: [prednisolone] Drug Allergy 01-11-20 22 GI Disturbance [facility] [employer] Other (15 sources) Fludrocortisone; Translations: [Florinef TABS] Drug Allergy Nausea [facility] 320 DO Work Phone: (20 sources) Midodrine; Translations: [midodrine] Drug Allergy 08-13-20 23 GI bleeding [facility] (3 sources) Acetaminophen / oxyCODONE; Translations: [Percocet] Drug Allergy [facility] Repository (4 sources) Chlorhexidine; Translations: [chlorhexidine topical] Drug Allergy Itching [facility] Repository (7 sources) Acetaminophen / oxyCODONE; Translations: [acetaminophen-o xycodone] Drug Allergy 07-07-20 24 GI Disturbance [facility] Comment on above: no narcotics, GI ups et (20 sources) Acetaminophen / oxyCODONE; Translations: [OXYCODONE-ACETA MINOPHEN] Drug Allergy 02-26-20 24 [facility] (20 sources) Chlorhexidine; Translations: [CHLORHEXIDINE] Drug Allergy 02-21-20 23 Itching [facility] Work Phone: (20 sources) Fludrocortisone; Translations: [FLUDROCORTISONE ] Drug Allergy 07-26-20 22 Nausea [facility] (20 sources) Prednisone Allergy to substance 02-18-20 23 Dizziness [facility] (1 source) predniSONE Drug Allergy 06-08-20 23 [facility] Repository Medications Current Medications Medication Drug Class(es) Dates Sig (Normalized) Sig (Original) [id number] 200 actuat albuterol 0.09 mg/actuat metered dose [...] this medication. 14 tablet 08/07/2024 08/14/2024 Active [place] (No Known Home Meds) (1 source) Start: [place] (No Known Home Meds) Active June 08, [...] Start: 08-01-2022 take 1 capsule by mo [facility] three times daily Droxidopa 100 MG [...] OB BPP W NON-STRESS on 11-19-[address] [address] Ultrasound Report Signed Patient: PRENATT,MADYSON M MR#: [id number] : 2000 Acct:[id number] Age/Sex: 23 / F ADM Date: 11/19/24 Loc: US Attending Dr: Osei Malik D.O. Ordering Physician: Osei Malik D.O. Date of Service: 11/19/24 Procedure(s): US OB BPP w non-stress Accession Number(s): [id number] cc: JB MANDUJANO ; Osei Malik D.O. [address] [address] Patient Name: MADYSON MAI MRN: [facility]:[id number] date: 2000 Sex: F Assigned Patient Location: US Current Patient Location: US Accession/Order Number: [id number] Exam Date: 11/19/2024 19:19 Report Date: 11/19/2024 19:20 At the request of: OSEI MALIK DO Procedure: US OB BPP w non-stress Exam: BPP. Reason for exam: Dichorionic diamniotic twin . COMPARISON: The 11/18/2024. TECHNIQUE: Transabdominal imaging of the gravid uterus was obtained. FINDINGS: Simulation Software Engineer reports the BPP 8 out of 8 [...] Wells Jr., D.O.11/19/2024 7:20 PM Dictation Location: [place] [address] Electronically authenticated by: [id number] Y Date: 11/19/2024 19:20 Dictated By: Parveen Wells M.D. Signed By: 11/19/241922 DD/ 19 TD/TT: Plastic Surgeon: [facility] Radiology, Radiologi MD billy - 11/19/[address] [address] Ultrasound Report Signed Patient: MADYSON MAI MR#: [id number] : 2000 Acct:[id number] Age/Sex: 23 / F ADM Date: 11/19/24 Loc: US Attending Dr: Osei Malik D.O. Ordering Physician: Osei Malik D.O. Date of Service: 11/19/24 Procedure(s): US OB BPP w non-stress Accession Number(s): [id number] cc: JB MANDUJANO ; Osei Malik D.O. The [place] [id number] Patient Name: MADYSON MAI MRN: [facility]:[id number] date: 2000 Sex: F Assigned Patient Location: US Current Patient Location: US Accession/Order Number: [id number] Exam Date: 11/19/2024 19:19 Report Date: 11/19/2024 19:20 At the request of: OSEI MALIK DO Procedure: US OB BPP w non-stress Exam: BPP. Reason for exam: Dichorionic diamniotic twin . COMPARISON: The 11/18/2024. TECHNIQUE: Transabdominal imaging of the gravid uterus was obtained. FINDINGS: Simulation Software Engineer reports the BPP 8 out of 8 [...] Wells Jr., D.O.11/19/2024 7:20 PM Dictation Location: [place] [address] Electronically authenticated by: [id number] Y Date: 11/19/2024 19:20 Dictated By: Parveen Wells M.D. Signed By: 11/19/241922 DD/ 19 TD/TT: Plastic Surgeon: [place] [address] Ultrasound Report Signed Patient: MADYSON MAI MR#: [id number] : 2000 Acct:[id number] Age/Sex: 23 / F ADM Date: 11/19/24 Loc: US Attending Dr: Osei Malik D.O. Ordering Physician: Osei Malik D.O. Date of Service: 11/19/24 Procedure(s): US OB BPP w non-stress Accession Number(s): [id number] cc: JB MANDUJANO ; Osei Malik D.O. [place] [address] Patient Name: MADYSON MAI MRN: [id number] date: 2000 Sex: F Assigned Patient Location: US Current Patient Location: US Accession/Order Number: [id number] Exam Date: 11/19/2024 19:16 Report Date: 11/19/2024 19:19 At the request of: OSEI MALIK DO Procedure: US OB BPP w non-stress Exam: BPP. Reason for exam: Dichorionic diamniotic twin . COMPARISON: The 11/18/2024. TECHNIQUE: Transabdominal imaging of the gravid uterus was obtained. FINDINGS: Simulation Software Engineer reports the BPP 8 out of 8 [...] Wells Jr., D.O.11/19/2024 7:19 PM Dictation Location: [place] [address] Electronically authenticated by: [id number] Y Date: 11/19/2024 19:19 Dictated By: Parveen Wells M.D. Signed By: 11/19/241921 DD/ 18 TD/TT: Plastic Surgeon: [facility] Radiology, Ishaanogyelitza cervantes MD - 11/19/2024 [place] [address] Ultrasound Report Signed Patient: MADYSON MAI MR#: [id number] : 2000 Acct:[id number] Age/Sex: 23 / F ADM Date: 11/19/24 Loc: US Attending Dr: Osei Malik D.O. Ordering Physician: Osei Malik D.O. Date of Service: 11/19/24 Procedure(s): US OB BPP w non-stress Accession Number(s): [id number] cc: JB MANDUJANO ; Osei Malik D.O. The [place] [address] Patient Name: MADYSON MAI MRN: [facility]:[id number] date: 2000 Sex: F Assigned Patient Location: US Current Patient Location: US Accession/Order Number: [id number] Exam Date: 11/19/2024 19:16 Report Date: 11/19/2024 19:19 At the request of: OSEI MALIK DO Procedure: US OB BPP w non-stress Exam: BPP. Reason for exam: Dichorionic diamniotic twin . COMPARISON: The 11/18/2024. TECHNIQUE: Transabdominal imaging of the gravid uterus was obtained. FINDINGS: Simulation Software Engineer reports the BPP 8 out of 8 [...] Wells Jr., D.OJesika11/19/2024 7:19 PM Dictation Location: [place] [address] Electronically authenticated by: [id number] Y Date: 11/19/2024 19:19 Dictated By: Parveen Wells M.D. Signed By: 11/19/241921 DD/ 18 TD/TT: Plastic Surgeon: [place] [address] Ultrasound Report Signed Patient: MADYSON MAI MR#: [id number] : 2000 Acct:[id number] Age/Sex: 23 / F ADM Date: 11/12/24 Loc: US Attending Dr: Osei Malik D.O. Ordering Physician: Osei Malik D.O. Date of Service: 11/12/24 Procedure(s): US OB BPP w non-stress Accession Number(s): [id number] cc: JB MANDUJANO ; Osei Malik D.O. [place] [address] Patient Name: MADYSON MAI MRN: [id number] date: 2000 Sex: F Assigned Patient Location: [facility] Current Patient Location: US Accession/Order Number: [id number] Exam Date: 11/13/2024 12:22 Report Date: 11/13/2024 12:44 At the request of: OSEI MALIK DO Procedure: US OB BPP w non-stress BPP Reason for exam: Dichorionic diamniotic twin . COMPARISON: BDP 11/05/2024. TECHNIQUE: Transabdominal imaging of the gravid uterus was obtained. FINDINGS: Simulation Software Engineer reports a BPP of 8 out of [...] Wells Jr. DLolita11/13/2024 12:44 PM Dictation Location: [place] [address] Electronically authenticated by: [id number] Y Date: 11/13/2024 12:44 Dictated By: Parveen Wells M.D. Signed By: 11/19/24 1036 DD/ 1244 TD/TT: Plastic Surgeon: [facility] RadiologyIshaanogyelitza cervantes MD - 11/19/2024 [place] [address] Ultrasound Report Signed Patient: MADYSON MAI MR#: [id number] : 2000 Acct:[id number] Age/Sex: 23 / F ADM Date: 11/12/24 Loc: US Attending Dr: Osei Malik D.O. Ordering Physician: Osei Malik D.O. Date of Service: 11/12/24 Procedure(s): US OB BPP w non-stress Accession Number(s): [id number] cc: JB MANDUJANO ; Osei Malik D.O. The [address] [address] Patient Name: MADYSON MAI MRN: [facility]:[id number] date: 2000 Sex: F Assigned Patient Location: [facility] Current Patient Location: Accession/Order Number: [id number] Exam Date: 11/13/2024 12:22 Report Date: 11/13/2024 12:44 At the request of: OSEI MALIK DO Procedure: US OB BPP w non-stress BPP Reason for exam: Dichorionic diamniotic twin . COMPARISON: BDP 11/05/2024. TECHNIQUE: Transabdominal imaging of the gravid uterus was obtained. FINDINGS: Simulation Software Engineer reports a BPP of 8 out of [...] Wells Jr., D.O.11/13/2024 12:44 PM Dictation Location: [facility]18 Electronically authenticated by: [id number] Y Date: 11/13/2024 12:44 Dictated By: Parveen Wells M.D. Signed By: 11/19/24 1036 DD/ 1244 TD/TT: Plastic Surgeon: [place] [address] Ultrasound Report Signed Patient: MADYSON MAI MR#: [id number] : 2000 Acct:[id number] Age/Sex: 23 / F ADM Date: Loc: [facility] 255-[address]: Osei Malik D.O. Ordering Physician: Osei Malik D.O. Date of Service: 11/17/24 Procedure(s): US OB BPP w non-stress Accession Number(s): [id number] cc: JB MANDUJANO ; Osei Malik D.O. [place] [address] Patient Name: MADYSON MAI MRN: [id number]:[id number] date: 2000 Sex: F Assigned Patient Location: [facility] Current Patient Location: Accession/Order Number: [id number] Exam Date: 11/18/2024 11:00 Report Date: 11/18/2024 11:08 At the request of: OSEI MALIK DO Procedure: US OB BPP w non-stress CLINICAL INFORMATION: Twin . Patient fell today. BIOPHYSICAL PROFILE - FETUS A: COMPARISON: 11/12/2024 TECHNIQUE: There is a twin with fetus A on the left in cephalic presentation. The reported gestational age is 34 weeks 2 days. The heart rate hycgvtez538 beats per minute. FINDINGS: TONE: 1 or [...] 34 weeks 2 days. The heart rate gukfulkr375 beats per minute. FINDINGS: TONE: 1 or [...] Camilla Damon M.D.11/18/2024 11:08 AM Dictation Location: [place] [address] Electronically authenticated by: [id number] Y Date: 11/18/2024 11:08 Dictated By: Camilla Damon M.D. Signed By: 11/19/24 1034 DD/ 1108 TD/TT: Plastic Surgeon: [facility] Radiology, Radiologi MD billy - 11/19/2024 [place] [address] Ultrasound Report Signed Patient: MADYSON MAI MR#: [id number] : 2000 Acct:[id number] Age/Sex: 23 / F ADM Date: Loc: [facility] 255-[address]: Osei Malik D.O. Ordering Physician: Osei Malik D.O. Date of Service: 11/17/24 Procedure(s): US OB BPP w non-stress Accession Number(s): [id number] cc: JB MANDUJANO ; Osei Malik D.O. [place] [address] Patient Name: MADYSON MAI MRN: [facility]:[id number] date: 2000 Sex: F Assigned Patient Location: [facility] Current Patient Location: Accession/Order Number: [id number] Exam Date: 11/18/2024 11:00 Report Date: 11/18/2024 11:08 At the request of: OSEI MALIK DO Procedure: US OB BPP w non-stress CLINICAL INFORMATION: Twin . Patient fell today. BIOPHYSICAL PROFILE - FETUS A: COMPARISON: 11/12/2024 TECHNIQUE: There is a twin with fetus A on the left in cephalic presentation. The reported gestational age is 34 weeks 2 days. The heart rate mwhhuuer765 beats per minute. FINDINGS: TONE: 1 or [...] 34 weeks 2 days. The heart rate udjsvaah566 beats per minute. FINDINGS: TONE: 1 or [...] Camilla Damon M.D.11/18/2024 11:08 AM Dictation Location: [place] [address] Electronically authenticated by: [id number] Y Date: 11/18/2024 11:08 Dictated By: Camilla Damon M.D. Signed By: 11/19/24 1034 DD/ 1108 TD/TT: Plastic Surgeon: [facility] Radiology Study observation (narrative) [facility] Radiology Study observation (narrative) [facility] US OB BPP W NON-STRESS Ordered By: Radiologist Radiology on 11-19-2024 [facility] Healthcare Work Phone: [facility] Healthcare Work Phone: [facility] Healthcare Work Phone: [facility] [employer] Work Phone: No Panel Informationon 11-18 Radiology Study observation (narrative) [facility] US OB BPP W NON-STRESS on 11-18-2024 [place] [address] Ultrasound Report Signed Patient: MADYSON MAI MR#: [id number] : 2000 Acct:[id number] Age/Sex: 23 / F ADM Date: Loc: [facility] 255-[address]: Osei Malik D.O. Ordering Physician: Osei Malik D.O. Date of Service: 11/17/24 Procedure(s): US OB BPP w non-stress Accession Number(s): [id number] cc: JB MANDUJANO ; Osei Malik D.O. The [place] [address] Patient Name: MADYSON MAI MRN: [id number] date: 2000 Sex: F Assigned Patient Location: [facility] Current Patient Location: [facility] Accession/Order Number: [id number] Exam Date: 11/18/2024 11:00 Report Date: 11/18/2024 11:08 At the request of: OSEI MALIK DO Procedure: US OB BPP w non-stress CLINICAL INFORMATION: Twin . Patient fell today. BIOPHYSICAL PROFILE - FETUS A: COMPARISON: 11/12/2024 TECHNIQUE: There is a twin with fetus A on the left in cephalic presentation. The reported gestational age is 34 weeks 2 days. The heart rate vrxdocqq160 beats per minute. FINDINGS: TONE: 1 or [...] 34 weeks 2 days. The heart rate itlkwhyf569 beats per minute. FINDINGS: TONE: 1 or [...] Camilla Damon M.D.11/18/2024 11:08 AM Dictation Location[facility] Electron[facility] authenticated by: [id number] Y Date: 11/18/2024 11:08 Dictated By: Camilla Damon M.D. Signed By: 11/18/24 1111 DD/ 1108 TD/TT: Plastic Surgeon: [facility] Radiology, Radiologi MD billy - 11/18/2024 The [place] [id number] Ultrasound Report Signed Patient: MADYSON MAI MR#: [id number] : 2000 Acct:[id number] Age/Sex: 23 / F ADM Date: Loc: [facility] 255-[address]: Osei Malik D.O. Ordering Physician: Osei Malik D.O. Date of Service: 11/17/24 Procedure(s): US OB BPP w non-stress Accession Number(s): [id number] cc: JB MANDUJANO ; Osei Malik D.O. The [place] [address] Patient Name: MADYSON MAI MRN: [facility]:[id number] date: 2000 Sex: F Assigned Patient Location: [facility] Current Patient Location: [facility] Accession/Order Number: [id number] Exam Date: 11/18/2024 11:00 Report Date: 11/18/2024 11:08 At the request of: OSEI MALIK DO Procedure: US OB BPP w non-stress CLINICAL INFORMATION: Twin . Patient fell today. BIOPHYSICAL PROFILE - FETUS A: COMPARISON: 11/12/2024 TECHNIQUE: There is a twin with fetus A on the left in cephalic presentation. The reported gestational age is 34 weeks 2 days. The heart rate evhlzosc385 beats per minute. FINDINGS: TONE: 1 or [...] 34 weeks 2 days. The heart rate nrmrnuam787 beats per minute. FINDINGS: TONE: 1 or [...] Camilla Damon M.D.11/18/2024 11:08 AM Dictation Location: [place] [address] Electronically authenticated by: [id number] Y Date: 11/18/2024 11:08 Dictated By: Camilla Damon M.D. Signed By: 11/18/24 1111 DD/ 1108 TD/TT: Plastic Surgeon: [facility] OB BPP W NON-STRESS Ordered By: Radiologist Radiology on 11-18-2024 [facility] [employer] Work Phone: US OB PLACENTAon 11-17-2024 [place] [address] Ultrasound Report Signed Patient: MADYSON MAI MR#: [id number] : 2000 Acct:[id number] Age/Sex: 23 / F ADM Date: Loc: [facility] 255- Attending Dr: Osei Malik D.O. Ordering Physician: Osei Malik D.O. Date of Service: 11/17/24 Procedure(s): US OB placenta Accession Number(s): [id number] cc: JB MANDUJANO ; Osei Malik D.O. [place] [id number] Patient Name: MADYSON MAI MRN: [id number] date: 2000 Sex: F Assigned Patient Location: [facility] Current Patient Location: [facility] Accession/Order Number: [id number] Exam Date: 11/17/2024 18:58 Report Date: 11/17/2024 [...] Good Ho M.D.11/17/2024 7:04 PM Dictation Location: [place] [address] Electronically authenticated by: [id number] Y Date: 11/17/2024 19:04 Dictated By: Good Ho M.D. Signed By: 11/17/241905 DD/ 03 TD/TT: Plastic Surgeon: [facility] Radiology, Radiologi MD billy - 11/17/2024 [place] [address] Ultrasound Report Signed Patient: MADYSON MAI MR#: [id number] : 2000 Acct:[id number] Age/Sex: 23 / F ADM Date: Loc: [facility] 255-[address]: Osei Malik D.O. Ordering Physician: Osei Malik D.O. Date of Service: 11/17/24 Procedure(s): US OB placenta Accession Number(s): [id number] cc: JB MANDUJANO ; Osei Malik D.O. The [place] [id number] Patient Name: MADYSON MAI MRN: [id number] date: 2000 Sex: F Assigned Patient Location: [facility] Current Patient Location: [facility] Accession/Order Number: [id number] Exam Date: 11/17/2024 18:58 Report Date: 11/17/2024 [...] Good Ho M.D.11/17/2024 7:04 PM Dictation Location: [place] [address] Electronically authenticated by: [id number] Y Date: 11/17/2024 19:04 Dictated By: Good Ho M.D. Signed By: 11/17/241905 DD/ 03 TD/TT: Plastic Surgeon: [facility] Radiology Study observation (narrative) [facility] US OB PLACENTAOrdered By: diologmarilu Radiology on 11-17-2024 [facility] Work Phone: No Panel Informationon 11-13 Radiology Study observation (narrative) [facility] US OB BPP W NON-STRESS on 11-13-2024 [place] [address] Ultrasound Report Signed Patient: MADYSON MAI MR#: [id number] : 2000 Acct:[id number] Age/Sex: 23 / F ADM Date: 11/12/24 Loc: US Attending Dr: Osei Malik D.O. Ordering Physician: Osei Malik D.O. Date of Service: 11/12/24 Procedure(s): US OB BPP w non-stress Accession Number(s): [id number] cc: JB MANDUJANO ; Osei Malik D.O. The [address] [address] Patient Name: MADYSON MAI MRN: [facility]:[id number] date: 2000 Sex: F Assigned Patient Location: [facility] Current Patient Location: LAB Accession/Order Number: [id number] Exam Date: 11/13/2024 12:22 Report Date: 11/13/2024 12:44 At the request of: OSEI MALIK DO Procedure: US OB BPP w non-stress BPP Reason for exam: Dichorionic diamniotic twin . COMPARISON: BDP 11/05/2024. TECHNIQUE: Transabdominal imaging of the gravid uterus was obtained. FINDINGS: Simulation Software Engineer reports a BPP of 8 out of [...] Wells Jr., D.O.11/13/2024 12:44 PM Dictation Location: [place] [address] Electronically authenticated by: [id number] Y Date: 11/13/2024 12:44 Dictated By: Parveen Wells M.D. Signed By: 11/13/24 1246 DD/ 1244 TD/TT: Plastic Surgeon: [facility] Radiology, Radiologyelitza cervantes MD - 11/13/[address] [address] Ultrasound Report Signed Patient: MADYSON MAI MR#: [id number] : 2000 Acct:[id number] Age/Sex: 23 / F ADM Date: 11/12/24 Loc: US Attending Dr: Osei Malik D.O. Ordering Physician: Osei Malik D.O. Date of Service: 11/12/24 Procedure(s): US OB BPP w non-stress Accession Number(s): [id number] cc: JB MANDUJANO ; Osei Malik D.O. [address] [address] Patient Name: MADYSON MAI MRN: [id number]:[id number] date: 2000 Sex: F Assigned Patient Location: [facility] Current Patient Location: LAB Accession/Order Number: [id number] Exam Date: 11/13/2024 12:22 Report Date: 11/13/2024 12:44 At the request of: OSEI MALIK DO Procedure: US OB BPP w non-stress BPP Reason for exam: Dichorionic diamniotic twin . COMPARISON: BDP 11/05/2024. TECHNIQUE: Transabdominal imaging of the gravid uterus was obtained. FINDINGS: Simulation Software Engineer reports a BPP of 8 out of [...] Wells Jr., D.O.11/13/2024 12:44 PM Dictation Location: [place] [address] Electronically authenticated by: [id number] Y Date: 11/13/2024 12:44 Dictated By: Parveen Wells M.D. Signed By: 11/13/24 1246 DD/ 1244 TD/TT: Plastic Surgeon: [facility] US OB BPP W NON-STRESS Ordered By: Radiologist Radiology on 11-13-2024 [facility] Work Phone: Urinalysis macro (dipstick) panel (U)on 11-10-2024 Bilirubin, UA Negative Negative - 4(70) +++ mg/dL [facility] Blood, UA Negative Negative - 50 Vasu/mcL [facility] Clarity, UA Clear [facility] Color, UA Yellow [facility] Glucose, UA Positive Negative - 1999(110) ++++ mg/dL [facility] Comment on above: 100mg/dL Interpretation and review of laboratory results Abnormal [facility] Ketones, UA Negative Negative - 160(16) ++++ mg/dL [facility] Leukocytes, UA Positive Negative - 500+++ Conrad/mcL [facility] Comment on above: small Nitrite, UA Negative Negative - Positive [facility] pH, UA 7 5 - 9 [facility] Protein, UA Trace Negative - 2000(20) ++++ mg/dL [facility] Spec Grav, UA 1.02 1 - 1.03 [facility] Urobilinogen, UA 0.2 0.2 - 12 mg/dL [facility] ALL CBC WITH AUTO DIFFon BASOPHILS ABSOLUTE AUTO 0 [facility] Basophils/100 WBC (Bld) 0.3 % 0.2 - 2.0 % [facility] Eosinophils/100 WBC (Bld) 0.6 % Low 0.9 - 7.0 % [facility] Erythrocyte distribution width (RBC) [Ratio] 13.2 % 11.0 - 15.0 % [facility] Hematocrit (Bld) [Volume fraction] 38.7 % 36.0 - 48.0 % [facility] Hemoglobin (Bld) [Mass/Vol] 12.9 g/dL 12.0 - 16.0 g/dL [facility] IMMATURE GRANULOCYTES ABS AUTO 0.05 High [facility] Immature granulocytes/100 WBC (Bld) 0.5 % 0.0 - 0.5 % [facility] Interpretation and review of laboratory results Abnormal [facility] LYMPHOCYTES ABSOLUTE AUTO 1.4 [facility] Lymphocytes/100 WBC (Bld) 13.2 % Low 20.5 - 60.0 % [facility] MCH (RBC) [Entitic mass] 28.4 pg 26.7 - 34.0 pg [facility] MCHC (RBC) [Mass/Vol] 33.3 g/dL 29.9 - 35.2 g/dL [facility] MCV (RBC) [Entitic vol] 85.2 fL 81.0 - 99.0 fL [facility] MONOCYTES ABSOLUTE AUTO 0.6 [facility] Monocytes/100 WBC (Bld) 5.7 % 1.7 - 12.0 % [facility] NEUTROPHILS ABSOLUTE AUTO 8.4 High [facility] Neutrophils/100 WBC (Bld) 79.7 % High 43.0 - 75.0 % [facility] Platelet mean volume (Bld) [Entitic vol] 10.3 fL 9.5 - 13.5 fL [facility] TBH EO # 0.1 [facility] TB PLT 151 [facility] TB RBC 4.54 [facility] WBC 10.5 [facility] No Panel InformationOrdered By: Radiologist Radiology on 11-06-2024 [facility] Work Phone: No Panel Informationon 11-06 Radiology Study observation (narrative) [facility] US OB BPP W NON-STRESS on 11-06-2024 [place] [address] Ultrasound Report Signed Patient: MADYSON MAI MR#: [id number] : 2000 Acct:[id number] Age/Sex: 23 / F ADM Date: 11/05/24 Loc: US Attending Dr: Osei Malik D.O. Ordering Physician: Osei Malik D.O. Date of Service: 11/05/24 Procedure(s): US OB BPP w non-stress Accession Number(s): [id number] cc: JB MANDUJANO ; Osei Malik D.O. The [place] [id number] Patient Name: MADYSON MAI MRN: [id number] date: 2000 Sex: F Assigned Patient Location: Current Patient Location: US Accession/Order Number: [id number] Exam Date: 11/05/2024 17:46 Report Date: 11/06/2024 [...] Signed By: 11/06/24 0748 DD/ 0745 TD/TT: Plastic Surgeon: [facility] Radiology, Radiologi MD billy - 11/06/2024 [place] [address] Ultrasound Report Signed Patient: MADYSON MAI MR#: [id number] : 2000 Acct:[id number] Age/Sex: 23 / F ADM Date: 11/05/24 Loc: US Attending Dr: Osei Malik D.O. Ordering Physician: Osei Malik D.O. Date of Service: 11/05/24 Procedure(s): US OB BPP w non-stress Accession Number(s): [id number] cc: JB MANDUJANO ; Osei Malik D.O. The [place] [address] Patient Name: MADYSON MAI MRN: [facility]:[id number] date: 2000 Sex: F Assigned Patient Location: US Current Patient Location: US Accession/Order Number: [id number] Exam Date: 11/05/2024 17:46 Report Date: 11/06/2024 [...] Small M.D. Signed By: 11/06/2448 DD/ TD/TT: Plastic Surgeon: [place] [address] Ultrasound Report Signed Patient: MADYSON MAI MR#: [id number] : 2000 Acct:[id number] Age/Sex: 23 / F ADM Date: 11/05/24 Loc: US Attending Dr: Osei Malik D.O. Ordering Physician: Osei Malik D.O. Date of Service: 11/05/24 Procedure(s): US OB BPP w non-stress Accession Number(s): [id number] cc: JB MANDUJANO ; Osei Malik D.O. [place] [id number] Patient Name: MADYSON MAI MRN: [id number] date: 2000 Sex: F Assigned Patient Location: US Current Patient Location: US Accession/Order Number: [id number] Exam Date: 11/05/2024 17:46 Report Date: 11/06/2024 [...] M.D. Signed By: 11/06/24 0748 DD/ TD/TT: Plastic Surgeon: [facility] Radiology, Radiologi MD billy - 11/06/2024 [place] [address] Ultrasound Report Signed Patient: MADYSON MAI MR#: [id number] : 2000 Acct:[id number] Age/Sex: 23 / F ADM Date: 11/05/24 Loc: US Attending Dr: Osei Malik D.O. Ordering Physician: Osei Malik D.O. Date of Service: 11/05/24 Procedure(s): US OB BPP w non-stress Accession Number(s): [id number] cc: JB MANDUJANO ; Osei Malik D.O. The [place] [id number] [phone] Patient Name: MADYSON MAI MRN: [id number]:[id number] date: 2000 Sex: F Assigned Patient Location: US Current Patient Location: US Accession/Order Number: [id number] Exam Date: 11/05/2024 17:46 Report Date: 11/06/2024 [...] Signed By: 11/06/24 0748 DD/ 0745 TD/TT: Plastic Surgeon: [facility] No Panel InformationOrdered By: Radiologist Radiology on 10-30-2024 [facility] Work Phone: No Panel Informationon 10-30 Radiology Study observation (narrative) [facility] US OB BPP W NON-STRESS on 10-30-[address] [address] Ultrasound Report Signed Patient: MADYSON MAI MR#: [id number] : 2000 Acct:[id number] Age/Sex: 23 / F ADM Date: 10/29/24 Loc: US Attending Dr: Osei Malik D.O. Ordering Physician: Osei Malik D.O. Date of Service: 10/29/24 Procedure(s): US OB BPP w non-stress Accession Number(s): [id number] cc: JB MANDUJANO ; Osei Malik D.O. The [place] [address] Patient Name: MADYSON MAI MRN: [facility]:[id number] date: 2000 Sex: F Assigned Patient Location: [facility] Current Patient Location: Accession/Order Number: [id number] Exam Date: 10/29/2024 17:40 Report Date: 10/30/2024 [...] M.D. Signed By: 10/30/2433 DD/ 9 TD/TT: Plastic Surgeon: [facility] Radiology, Radiologi MD billy - 10/30/[address] [address] Ultrasound Report Signed Patient: MADYSON MAI MR#: [id number] : 2000 Acct:[id number] Age/Sex: 23 / F ADM Date: 10/29/24 Loc: US Attending Dr: Osei Malik D.O. Ordering Physician: Osei Malik D.O. Date of Service: 10/29/24 Procedure(s): US OB BPP w non-stress Accession Number(s): [id number] cc: JB MANDUJANO ; Osei Malik D.O. [address] [address] Patient Name: MADYSON MAI MRN: [facility]:[id number] date: 2000 Sex: F Assigned Patient Location: [facility] Current Patient Location: Accession/Order Number: [id number] Exam Date: 10/29/2024 17:40 Report Date: 10/30/2024 [...] M.D. Signed By: 10/30/2433 DD/ 9 TD/TT: Plastic Surgeon: KAL[place] [address] [place] [address] Ultrasound Report Signed Patient: MADYSON MAI MR#: [id number] : 2000 Acct:[id number] Age/Sex: 23 / F ADM Date: 10/29/24 Loc: US Attending Dr: Osei Malik D.O. Ordering Physician: Osei Malik D.O. Date of Service: 10/29/24 Procedure(s): US OB BPP w non-stress Accession Number(s): [id number] cc: JB MANDUJANO ; Osei Malik D.O. [place] [address] Patient Name: MADYSON MAI MRN: [id number]:[id number] date: 2000 Sex: F Assigned Patient Location: [facility] Current Patient Location: Accession/Order Number: [id number] Exam Date: 10/29/2024 17:40 Report Date: 10/30/2024 [...] M.D. Signed By: 10/30/24 0733 DD/ TD/TT: Plastic Surgeon: [facility] Radiology, Radiologyelitza cervantes MD - 10/30/2024 The [place] [id number] Ultrasound Report Signed Patient: MADYSON MAI MR#: [id number] : 2000 Acct:[id number] Age/Sex: 23 / F ADM Date: 10/29/24 Loc: US Attending Dr: Osei Malik D.O. Ordering Physician: Osei Malik D.O. Date of Service: 10/29/24 Procedure(s): US OB BPP w non-stress Accession Number(s): [id number] cc: JB MANDUJANO ; Osei Malik D.O. [address] [address] Patient Name: MADYSON MAI MRN: [facility]:[id number] date: 2000 Sex: F Assigned Patient Location: [facility] Current Patient Location: Accession/Order Number: [id number] Exam Date: 10/29/2024 17:40 Report Date: 10/30/2024 [...] M.D. Signed By: 10/30/2433 DD/ 9 TD/TT: Plastic Surgeon: [facility] Urinalysis macro (dipstick) panel (U)on 10-29-2024 Bilirubin, UA Negative Negative - 4(70) +++ mg/dL [facility] Blood, UA Negative Negative - 50 Vasu/mcL [facility] Clarity, UA Clear [facility] Color, UA Yellow [facility] Glucose, UA Positive Negative - 2000(110) ++++ mg/dL [facility] Comment on above: 100 MG Interpretation and review of laboratory results Abnormal [facility] Ketones, UA Negative Negative - 160(16) ++++ mg/dL [facility] Leukocytes, UA Positive Negative - 500+++ Conrad/mcL [facility] Comment on above: SMALL Nitrite, UA Negative Negative - Positive [facility] pH, UA 7 5 - 9 [facility] Protein, UA Negative Negative - 2000(20) ++++ mg/dL [facility] Spec Grav, UA 1.01 1 - 1.03 [facility] Urobilinogen, UA 0.2 0.2 - 12 mg/dL [facility] CTA Chest vessels WO and W c ontrast Luiz 10-27-[address] [place] [id number] Scan Report Signed Patient: MADYSON MAI MR#: [id number] : 2000 Acct:[id number] Age/Sex: 23 / F ADM Date: Loc: [facility] 251-[address]: Osei Malik D.O. Ordering Physician: Osei Malik D.O. Date of Service: 10/27/24 Procedure(s): CT angio chest Accession Number(s): [id number] cc: JB MANDUJANO [place] [id number] Patient Name: MADYSON MAI MRN: [id number] date: 2000 Sex: F Assigned Patient Location: [facility] Current Patient Location: [facility] Accession/Order Number: [id number] Exam Date: 10/27/2024 15:20 Report Date: 10/27/2024 [...] Signed By: 10/27/24 1556 DD/ 1554 TD/TT: Plastic Surgeon: [facility] Radiology, Radiologi MD billy - 10/27/2024 [place] [address] CT Scan Report Signed Patient: MADYSON MAI MR#: [id number] : 2000 Acct:[id number] Age/Sex: 23 / F ADM Date: Loc: [facility] 251-[address]: Osei Malik D.O. Ordering Physician: Osei Malik D.O. Date of Service: 10/27/24 Procedure(s): CT angio chest Accession Number(s): [id number] cc: JB MANDUJANO [address] [address] Patient Name: MADYSON MAI MRN: [facility]:[id number] date: 2000 Sex: F Assigned Patient Location: [facility] Current Patient Location: [facility] Accession/Order Number: [id number] Exam Date: 10/27/2024 15:20 Report Date: 10/27/2024 [...] Small M.D. Signed By: 10/27/24 1559 DD/ 1556 TD/TT: Plastic Surgeon: [facility] Radiology Study observation (narrative) [facility] CTA Chest vessels WO and W c ontrast IVOrdered By: Radiologist Radiology on 10-27-2024 [facility] Work Phone: ECG 12-LEADon 10-27-[address] [place] [address] Electrocardiograph Report Signed Patient: MADYSON MAI MR#: [id number] : 2000 Acct:[id number] Age/Sex: 23 / F ADM Date: Loc: [place] [address]: Osei Malik D.O. Ordering Physician: Osei Malik D.O. Date of Service: 10/27/24 Procedure(s): ECG 12 lead Accession Number(s): [id number] cc: [facility] Test Date: 2024-10-27 Pat Name: MADYSON MAI Department: Room: [facility] Gender: Female Loan Assistant: : 2000 Requested By: OSEI MALIK Order Number: [id number] Reading MD: SURYA MEJÍA Measurements Intervals [place] Rate: 98 P: 36 VT: 153 QRS: 19 QRSD: 98 T: 28 QT: 353 QTc: 451 Interpretive Statements SINUS RHYTHM No previous ECG available for comparison Electronically Signed On 10-27-2024 20:49:34 EST by SURYA MEJÍA Dictated By: Surya Mejía D.O. Signed By: 10/27/24 204 DD/ 1555 TD/TT: Plastic Surgeon: [facility] Radiology, Radiologi MD billy - 10/27/2024 [place] [address] Electrocardiograph Report Signed Patient: MADYSON MAI MR#: [id number] : 2000 Acct:[id number] Age/Sex: 23 / F ADM Date: Loc: [place] [address]: Osei Malik D.O. Ordering Physician: Osei Malik D.O. Date of Service: 10/27/24 Procedure(s): ECG 12 lead Accession Number(s): [id number] cc: [facility] Test Date: 2024-10-27 Pat Name: MADYSON MAI Department: Room: [facility] Gender: Female Loan Assistant: : 2000 Requested By: OSEI MALIK Order Number: [id number] Reading MD: SURYA MEJÍA Measurements Intervals [place] Rate: 98 P: 36 VT: 153 QRS: 19 QRSD: 98 T: 28 QT: 353 QTc: 451 Interpretive Statements SINUS RHYTHM No previous ECG available for comparison Electronically Signed On 10-27-2024 20:49:34 EST by SURYA MEJÍA Dictated By: Surya Mejía D.O. Signed By: 10/27/242048 DD/ 54 TD/TT: Plastic Surgeon: [facility] Radiology Study observation (narrative) [facility] ECG 12-LEADOrdered By: Radio logist Radiology on 10-27-2024 [facility] Work Phone: TBH UA (CLEAN/CATCH) GATE ATTENDANT/YOUSIF RO IF IND.on 10-27-2024 BILIRUBIN URINE Negative NEGATIVE [facility] Healthcare BLOOD URINE Negative NEGATIVE [facility] Clarity (U) CLEAR CLEAR [facility] Color (U) LT. YELLOW YELLOW [facility] GLUCOSE URINE UA 500 mg/dL Abnormal NEGATIVE [facility] Interpretation and review of laboratory results Abnormal [facility] Ketones Ql (U) Negative NEGATIVE mg/dL [facility] Leukocyte esterase Test strip Ql (U) SMALL Abnormal NEGATIVE [facility] NITRITE URINE Negative NEGATIVE [facility] pH (U) 6.5 [pH] 5.0 - 9.0 [facility] PROTEIN URINE Negative NEG/TRACE mg/dL [facility] SPECIFIC GRAVITY URINE 1.020 1.005 - 1.025 [facility] URINE MICROSCOPIC INDICATED YES [facility] UROBILINOGEN URINE 1.0 EU/dL 0.2 - 1.0 EU/dL [facility] No Panel InformationOrdered By: Radiologist Radiology on 10-23-2024 [facility] Work Phone: No Panel Informationon 10-23 Radiology Study observation (narrative) [facility] US OB BPP W NON-STRESS on 10-23-[address] [address] Ultrasound Report Signed Patient: MADYSON MAI MR#: [id number] : 2000 Acct:[id number] Age/Sex: 23 / F ADM Date: 10/22/24 Loc: US Attending Dr: Osei Malik D.O. Ordering Physician: Osei Malik D.O. Date of Service: 10/22/24 Procedure(s): US OB BPP w non-stress Accession Number(s): [id number] cc: JB MANDUJANO ; Osei Malik D.O. The [address] [address] Patient Name: MADYSON MAI MRN: [facility]:[id number] date: 2000 Sex: F Assigned Patient Location: [facility] Current Patient Location: Accession/Order Number: [id number] Exam Date: 10/22/2024 17:05 Report Date: 10/23/2024 [...] Signed By: 10/23/24 0745 DD/ 0742 TD/TT: Plastic Surgeon: [facility] Radiology, Radiologi MD billy - 10/23/[address] [address] Ultrasound Report Signed Patient: MADYSON MAI MR#: [id number] : 2000 Acct:[id number] Age/Sex: 23 / F ADM Date: 10/22/24 Loc: US Attending Dr: Osei Malik D.O. Ordering Physician: Osei Malik D.O. Date of Service: 10/22/24 Procedure(s): US OB BPP w non-stress Accession Number(s): [id number] cc: JB MANDUJANO ; Osei Malik D.O. [place] [address] Patient Name: MADYSON MAI MRN: [id number] date: 2000 Sex: F Assigned Patient Location: [facility] Current Patient Location: Accession/Order Number: [id number] Exam Date: 10/22/2024 17:05 Report Date: 10/23/2024 [...] M.D. Signed By: 10/23/24 0745 DD/ TD/TT: Plastic Surgeon: [place] [address] Ultrasound Report Signed Patient: MADYSON MAI MR#: [id number] : 2000 Acct:[id number] Age/Sex: 23 / F ADM Date: 10/22/24 Loc: US Attending Dr: Osei Malik D.O. Ordering Physician: Osei Malik D.O. Date of Service: 10/22/24 Procedure(s): US OB BPP w non-stress Accession Number(s): [id number] cc: JB MANDUJANO ; Osei Malik D.O. [place] [id number] Patient Name: MADYSON MAI MRN: [facility]:[id number] date: 2000 Sex: F Assigned Patient Location: [facility] Current Patient Location: Accession/Order Number: [id number] Exam Date: 10/22/2024 17:05 Report Date: 10/23/2024 [...] Signed By: 10/23/24 0745 DD/ 0742 TD/TT: Plastic Surgeon: [facility] Radiology, Radiologi MD billy - 10/23/[address] [address] Ultrasound Report Signed Patient: MADYSON MAI MR#: [id number] : 2000 Acct:[id number] Age/Sex: 23 / F ADM Date: 10/22/24 Loc: US Attending Dr: Osei Malik D.O. Ordering Physician: Osei Malik D.O. Date of Service: 10/22/24 Procedure(s): US OB BPP w non-stress Accession Number(s): [id number] cc: JB MANDUJANO ; Osei Malik D.O. [place] [address] Patient Name: MADYSON MAI MRN: [id number] date: 2000 Sex: F Assigned Patient Location: [facility] Current Patient Location: Accession/Order Number: [id number] Exam Date: 10/22/2024 17:05 Report Date: 10/23/2024 [...] Signed By: 10/23/24 0745 DD/ 0742 TD/TT: Plastic Surgeon: [facility] Urinalysis macro (dipstick) panel (U)on 10-15-2024 Bilirubin, UA Negative Negative - 4(70) +++ mg/dL [facility] Blood, UA Negative Negative - 50 Vasu/mcL [facility] Healthcare Clarity, UA Clear [facility] Color, UA Yellow [facility] Glucose, UA Positive Negative - 1999(110) ++++ mg/dL [facility] Comment on above: 500 Interpretation and review of laboratory results Abnormal [facility] Ketones, UA Negative Negative - 160(16) ++++ mg/dL [facility] Leukocytes, UA Positive Negative - 500+++ Conrad/mcL [facility] Comment on above: small Nitrite, UA Negative Negative - Positive [facility] pH, UA 6 5 - 9 [facility] Protein, UA Trace Negative - 1999(20) ++++ mg/dL [facility] Spec Grav, UA 1.02 1 - 1.03 [facility] Urobilinogen, UA 0.2 0.2 - 12 mg/dL [facility] Urinalysis macro (dipstick) panel (U)on 10-02-2024 Bilirubin, UA Negative Negative - 4(70) +++ mg/dL [facility] Blood, UA Negative Negative - 50 Vasu/mcL [facility] Clarity, UA Clear [facility] Color, UA Yellow [facility] Glucose, UA Negative Negative - 1999(110) ++++ mg/dL [facility] Interpretation and review of laboratory results Abnormal [facility] Ketones, UA Positive Negative - 160(16) ++++ mg/dL [facility] Comment on above: 40 Leukocytes, UA Trace Negative - 500+++ Conrad/mcL [facility] Nitrite, UA Negative Negative - Positive [facility] pH, UA 6 5 - 9 [facility] Protein, UA Positive Negative - 1999(20) ++++ mg/dL [facility] Comment on above: 30 Spec Grav, UA 1.03 1 - 1.03 [facility] Urobilinogen, UA 0.2 0.2 - 12 mg/dL [facility]H UA (CLEAN/CATCH) GATE ATTENDANT/YOUSIF RO IF IND.on 09-25-2024 BILIRUBIN URINE Negative NEGATIVE [facility] BLOOD URINE Negative NEGATIVE [facility] Clarity (U) CLEAR CLEAR [facility] Color (U) LT. YELLOW YELLOW [facility] GLUCOSE URINE UA 250 mg/dL Abnormal NEGATIVE [facility] Interpretation and review of laboratory results Abnormal [facility] Ketones Ql (U) Negative NEGATIVE mg/dL [facility] Leukocyte esterase Test strip Ql (U) SMALL Abnormal NEGATIVE [facility] NITRITE URINE Negative NEGATIVE [facility] pH (U) 6.0 [pH] 5.0 - 9.0 [facility] PROTEIN URINE Negative NEG/TRACE mg/dL [facility] SPECIFIC GRAVITY URINE 1.020 1.005 - 1.025 [facility] URINE MICROSCOPIC INDICATED YES [facility] UROBILINOGEN URINE 0.2 EU/dL 0.2 - 1.0 EU/dL [facility] Urine Cultureon 09-25-2024 Bacteria identified Cx Nom (U) <9,000 colonies/ml mixed bacterial skin contaminants 2 Days PERFORMED BY: [place] [address] PATHOLOGIST ELECTRONIC CALIBRATION TECHNICIAN KARMA BUCK M.D. Normal [facility] Comment on above: Performed By: #### C UU #### [address] Urinalysis macro (dipstick) panel (U)on 09-18-2024 Bilirubin, UA Negative Negative - 4(70) +++ mg/dL [facility] Blood, UA Negative Negative - 50 Vasu/mcL [facility] Clarity, UA Clear [facility] Color, UA Yellow [facility] Glucose, UA Positive Negative - 1999(110) ++++ mg/dL [facility] Comment on above: 100 Interpretation and review of laboratory results Abnormal [facility] Ketones, UA Negative Negative - 160(16) ++++ mg/dL [facility] Leukocytes, UA Positive Negative - 500+++ Conrad/mcL [facility] Comment on above: small Nitrite, UA Negative Negative - Positive [facility] pH, UA 7 5 - 9 [facility] Protein, UA Trace Negative - 1999(20) ++++ mg/dL [facility] Spec Grav, UA 1.02 1 - 1.03 [facility] Urobilinogen, UA 0.2 0.2 - 12 mg/dL [facility] Urinalysis macro (dipstick) panel (U)on 09-03-2024 Bilirubin, UA Negative Negative - 4(70) +++ mg/dL [facility] Blood, UA Negative Negative - 50 Vasu/mcL [facility] Clarity, UA Clear [facility] Color, UA Yellow [facility] Glucose, UA Many Negative - 2000(110) ++++ mg/dL [facility] Interpretation and review of laboratory results Abnormal [facility] Ketones, UA Positive Negative - 160(16) ++++ mg/dL [facility] Leukocytes, UA Positive Negative - 500+++ Conrad/mcL [facility] Nitrite, UA Negative Negative - Positive [facility] pH, UA 6.5 5 - 9 [facility] Protein, UA Moderate Negative - 2000(20) ++++ mg/dL [facility] Spec Grav, UA 1.025 1 - 1.03 [facility] Urobilinogen, UA 0.2 0.2 - 12 mg/dL [facility] GLUCOSE TOLERANCE 3 HOURon 1 11-02-2023 GLUCOSE TOLERANCE 3 HOUR High mg/dL [facility] Comment on above: GLU FAST 86 (<95) Co l: 09/01/24 0818 GLU 1HR 162 (<180) Col: 09/01/24 0919 GLU 2HR 156H (<155) Col: 09/01/24 1019 GLU 3HR 110 (<140) Col: 09/01/24 1119 Interpretation and review of laboratory results Abnormal [facility] ALL CBC WITH AUTO DIFFon BASOPHILS ABSOLUTE AUTO 0 [facility] Basophils/100 WBC (Bld) 0.2 % 0.2 - 2.0 % [facility] Eosinophils/100 WBC (Bld) 0.7 % Low 0.9 - 7.0 % [facility] Erythrocyte distribution width (RBC) [Ratio] 13.6 % 11.0 - 15.0 % [facility] Hematocrit (Bld) [Volume fraction] 32.9 % Low 36.0 - 48.0 % [facility] Hemoglobin (Bld) [Mass/Vol] 11.1 g/dL Low 12.0 - 16.0 g/dL [facility] IMMATURE GRANULOCYTES ABS AUTO 0.11 High [facility] Immature granulocytes/100 WBC (Bld) 1.1 % High 0.0 - 0.5 % [facility] Interpretation and review of laboratory results Abnormal [facility] LYMPHOCYTES ABSOLUTE AUTO 1.3 [facility] Lymphocytes/100 WBC (Bld) 13 % Low 20.5 - 60.0 % [facility] MCH (RBC) [Entitic mass] 29.6 pg 26.7 - 34.0 pg [facility] MCHC (RBC) [Mass/Vol] 33.7 g/dL 29.9 - 35.2 g/dL [facility] MCV (RBC) [Entitic vol] 87.7 fL 81.0 - 99.0 fL [facility] MONOCYTES ABSOLUTE AUTO 0.6 [facility] Monocytes/100 WBC (Bld) 5.5 % 1.7 - 12.0 % [facility] NEUTROPHILS ABSOLUTE AUTO 7.9 High [facility] Neutrophils/100 WBC (Bld) 79.5 % High 43.0 - 75.0 % [facility] Platelet mean volume (Bld) [Entitic vol] 10.3 fL 9.5 - 13.5 fL [facility] TB EO # 0.1 [facility] PLT 178 [facility] RBC 3.75 Low [facility] WBC 9.9 [facility] IGP,APTIMA HPV,AGE GDLNon AGE GDLN ACOG TESTING Note . [facility] Comment on above: TESTS RESULT FLAG UN ITS REF RANGE LAB Clinician Provided Cytology Information Source.............Cervix No. of containers..01 ThinPrep Vial Age Algo ACOG Maureen... FLAG LEGEND: L-Low Normal,H-High Normal,LL-Alert Low,HH-Alert High <-Panic Low,>-Panic High,A-Abnormal,AA-Critical Abnormal Performed at: 01 =G [facility] [address] [place] [address] Toya Wilson MD, IGP, RFX APTIMA HPV ASCU Note . [facility] Comment on above: TESTS RESULT FLAG UN ITS REF RANGE LAB DIAGNOSIS: 02 NEGATIVE FOR INTRAEPITHELIAL LESION OR MALIGNANCY. Specimen adequacy: 02 Satisfactory for evaluation. No endocervical component is identified. Performed by: 02 Imelda Miranda Computer Engineer ([facility]) . 02 Note: Note 02 [...] High,A-Abnormal,AA-Critical Abnormal Performed at: 02 WB [facility] [address] [place] [address] Toya Wilson MD, Performed at: = - [address], [place] [id number] Box Repairer: Toya Wilson MD, Phone: [phone] Performed at: [facility] [address] [facility] [facility] [place] [id number] Box Repairer: Toya Wilson MD, Phone: [phone] [facility] AFP, SERUM, OPEN SPINA BIFID Aon 08-13-2024 AFP MOM 2.24 . [facility] AFP VALUE 103.1 ng/mL . [facility] COMMENT: Comment . [facility] Comment on above: Joyce Reina , Ph.D., [facility] Director References: Available Upon Request. Multiples Of Median Cutoffs For AFP Elevations [place] 2.5 Black 2.8 IDD 2.0 Twins 4.5 Abbreviation Definitions IDD - Insulin Dep Diabetes OSBR - Open Spina Bifida Risk For further inquiries contact [facility] at [phone]. This test was developed and its performance characteristics determined by [employer]. It has not been cleared or approved by the Food and Drug Administration. Performed at: [facility] [address], [place] [id number] Box Repairer: Angel Regan Formerly [facility], Phone: [phone] GEST. AGE ON COLLECTION DATE 20.3 . weeks [facility] GESTAT. AGE BASED ON LMP . [facility] Comment on above: Recalculations are n ot recommended when gestational dating by LMP and ultrasound are within 10 days. INSULIN DEP DIABETES No . [facility] INTERPRETATION Comment . [facility] Comment on above: Interpretation: Scre [...] Customer Services to discuss available options. The [employer] recommends amniocentesis be offered to women age 35 and older. [age] [facility] MULTIPLE GESTATION Twins . [facility] OSBR RISK 1 IN 1081 . [facility] RACE . [facility] RESULTS Report . [facility] TEST RESULTS: Negative . [facility] WEIGHT 219 . 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 3-vessel view. 2-lucowf-hikeygj view. Interventricular septum. Diaphragm. Abdomen Right renal [...] Nuchal fold. F (more content not included)... [facility] Radiology Study observation (narrative) [facility] US for pregnancyOrdered By: Radiologist Radiology on 08-13-2024 [facility] Work Phone: RECURRENT VAGINITIS (HTRX)on 08-07-2024 ATOPOBIUM VAGINAE 29.356 Abnormal [facility] ATOPOBIUM VAGINAE Detected Abnormal [facility] BVAB 2,3 (BACTERIAL VAGINOSIS ASSOCIATED BACTERIA 2, 3); MOBILUNCUS SPP 0 [facility] BVAB 2,3 (BACTERIAL VAGINOSIS ASSOCIATED BACTERIA 2, 3); MOBILUNCUS SPP Not detected [facility] SANTHOSH ALBICANS, PARAPSILOSIS, TROPICALIS 0 [facility] SANTHOSH ALBICANS, PARAPSILOSIS, TROPICALIS Not detected [facility] SANTHOSH GLABRATA 0 [facility] SANTHOSH GLABRATA Not detected [facility] SANTHOSH KRUSEI 0 [facility] SANTHOSH KRUSEI Not detected [facility] CHLAMYDIA TRACHOMATIS 0 [facility] CHLAMYDIA TRACHOMATIS Not detected N [facility] GARDNERELLA VAGINALIS 0 [facility] GARDNERELLA VAGINALIS Not detected N [facility] Interpretation and review of laboratory results Abnormal [facility] MEGASPHAERA (TYPES 1, 2) 0 [facility] MEGASPHAERA (TYPES 1, 2) Not detected [facility] MYCOPLASMA GENITALIUM 0 [facility] MYCOPLASMA GENITALIUM Not detected N [facility] NEISSERIA GONORRHOEAE 0 [facility] NEISSERIA GONORRHOEAE Not detected N [facility] TRICHOMONAS VAGINALIS 0 [facility] TRICHOMONAS VAGINALIS Not detected N [facility] Urinalysis macro (dipstick) panel (U)on 08-05-2024 Bilirubin, UA Negative Negative - 4(70) +++ mg/dL [facility] Blood, UA Negative Negative - 50 Vasu/mcL [facility] Clarity, UA Clear [facility] Color, UA Yellow [facility] Glucose, UA Negative Negative - 1999(110) ++++ mg/dL [facility] Interpretation and review of laboratory results Normal [facility] Ketones, UA Negative Negative - 160(16) ++++ mg/dL [facility] Leukocytes, UA Negative Negative - 500+++ Conrad/mcL [facility] Nitrite, UA Negative Negative - Positive [facility] pH, UA 5.5 5 - 9 [facility] Protein, UA Negative Negative - 1999(20) ++++ mg/dL [facility] Spec Grav, UA 1.02 1 - 1.03 [facility] Urobilinogen, UA 1.0 0.2 - 12 mg/dL [facility] Urinalysis macro (dipstick) panel (U)on 07-03-2024 Bilirubin, UA Negative Negative - 4(70) +++ mg/dL [facility] Blood, UA Negative Negative - 50 Vasu/mcL [facility] Clarity, UA Clear [facility] Color, UA Yellow [facility] Glucose, UA Positive Negative - 1999(110) ++++ mg/dL [facility] Comment on above: 500 Interpretation and review of laboratory results Abnormal [facility] Ketones, UA Negative Negative - 160(16) ++++ mg/dL [facility] Leukocytes, UA Negative Negative - 500+++ Conrad/mcL [facility] Nitrite, UA Negative Negative - Positive [facility] pH, UA 6.0 5 - 9 [facility] Protein, UA Negative Negative - 1999(20) ++++ mg/dL [facility] Spec Grav, UA 1.015 1 - 1.03 [facility] Urobilinogen, UA 0.2 0.2 - 12 mg/dL [facility] Urinalysis macro (dipstick) panel (U)Ordered By: Ibis Sandoval on 06-04-2024 Bilirubin, UA Negative Negative - 4(70) +++ mg/dL [facility] Blood, UA Positive Negative - 50 Vasu/mcL [facility] Comment on above: trace-intact Clarity, UA Clear [facility] Color, UA Yellow [facility] Glucose, UA Negative Negative - 1999(110) ++++ mg/dL [facility] Interpretation and review of laboratory results Abnormal [facility] Ketones, UA Negative Negative - 160(16) ++++ mg/dL [facility] Leukocytes, UA Trace Negative - 500+++ Conrad/mcL [facility] Nitrite, UA Negative Negative - Positive [facility] pH, UA 5.5 5 - 9 [facility] Protein, UA Negative Negative - 2000(20) ++++ mg/dL [facility] Spec Grav, UA 1.005 1 - 1.03 [facility] Urobilinogen, UA 0.2 0.2 - 12 mg/dL [facility] ALL CBC WITH AUTO DIFFon BASOPHILS ABSOLUTE AUTO 0.0 [facility] Basophils/100 WBC (Bld) 0.5 % 0.2 - 2.0 % [facility] Eosinophils/100 WBC (Bld) 0.5 % Low 0.9 - 7.0 % [facility] Erythrocyte distribution width (RBC) [Ratio] 11.9 % 11.0 - 15.0 % [facility] IMMATURE GRANULOCYTES ABS AUTO 0.03 [facility] Immature granulocytes/100 WBC (Bld) 0.4 % 0.0 - 0.5 % [facility] Interpretation and review of laboratory results Abnormal [facility] LYMPHOCYTES ABSOLUTE AUTO 1.8 [facility] Lymphocytes/100 WBC (Bld) 23.3 % 20.5 - 60.0 % [facility] MCH (RBC) [Entitic mass] 29.7 pg 26.7 - 34.0 pg [facility] MCHC (RBC) [Mass/Vol] 34.9 g/dL 29.9 - 35.2 g/dL [facility] MCV (RBC) [Entitic vol] 85.1 fL 81.0 - 99.0 fL [facility] MONOCYTES ABSOLUTE AUTO 0.5 [facility] Monocytes/100 WBC (Bld) 6.3 % 1.7 - 12.0 % [facility] NEUTROPHILS ABSOLUTE AUTO 5.4 [facility] Neutrophils/100 WBC (Bld) 69.0 % 43.0 - 75.0 % [facility] Platelet mean volume (Bld) [Entitic vol] 10.3 fL 9.5 - 13.5 fL [facility] TBH EO # 0.0 [facility] PLT [address] [facility] RBC 4.55 [facility] WBC 7.8 [facility] - Hematology and Cell countson 05-24-2024 Hematocrit (Bld) [Volume fraction] 38.7 % [facility] Hemoglobin (Bld) [Mass/Vol] 13.5 g/dL [facility] No Panel Informationon 05-24 [facility] HCG ( test) Ql (U)o n 05-23-2024 Interpretation and review of laboratory results Abnormal [facility] Preg Test, Ur Positive [facility] Urinalysis macro (dipstick) panel (U)on 05-23-2024 Bilirubin, UA Negative Negative - 4(70) +++ mg/dL [facility] Blood, UA Negative Negative - 50 Vasu/mcL [facility] Clarity, UA Clear [facility] Color, UA Yellow [facility] Glucose, UA Negative Negative - 1999(110) ++++ mg/dL [facility] Interpretation and review of laboratory results Normal [facility] Ketones, UA Negative Negative - 160(16) ++++ mg/dL [facility] Leukocytes, UA Negative Negative - 500+++ Conrad/mcL [facility] Nitrite, UA Negative Negative - Positive [facility] pH, UA 7.0 5 - 9 [facility] Protein, UA Negative Negative - 1999(20) ++++ mg/dL [facility] Spec Grav, UA 1.025 1 - 1.03 [facility] Urobilinogen, UA 1.0 0.2 - 12 mg/dL [facility] CHEMISTRYOrdered By: SYSTEM SYSTEM on 04-12-2024 Progesterone [...] Progesterone Lvl 31.70 ng/mL Invalid Interpretation Code [facility] Comment on above: Result Comment: 'F N ON FOLLICULAR = 0.10 - 0.60' 'LUTEAL = 3.00 - 17.5' 'MIDLUTEAL = 3.30 - 18.6' 'POST-MENOPAUSE = 0.10 - 0.40' '-FIRST TRIMESTER = 8.30 - 66.5' 'SECOND TRIMESTER = 18.9 - 66.1' 'THIRD TRIMESTER = 35.8 - 312.4' 'MALES = 0.14 - 2.06' Performed By: #### 2 [id number] #### [facility] Laboratory [address] [place] [address] CHEMISTRYOrdered By: SYSTEM SYSTEM on 03-14-2024 Progesterone [...] Consent for Treatmenton 02-23 Consent for Treatment [id number]#[id number] Normal [facility] Physician Orderon 03-14-2024 Physician Order [id number]#[id number] Normal [facility] Progesteroneon 03-14-2024 Progesterone Lvl 16.15 ng/mL Invalid Interpretation Code [facility] Comment on above: Result Comment: 'F N ON FOLLICULAR = 0.10 - 0.60' 'LUTEAL = 3.00 - 17.5' 'MIDLUTEAL = 3.30 - 18.6' 'POST-MENOPAUSE = 0.10 - 0.40' '-FIRST TRIMESTER = 8.30 - 66.5' 'SECOND TRIMESTER = 18.9 - 66.1' 'THIRD TRIMESTER = 35.8 - 312.4' 'MALES = 0.14 - 2.06' Performed By: #### 2 [id number] #### [facility] [address] [place] [address] Ambulatory Visit Summaryon 0 12-11-2023 Ambulatory Visit [...] 11:20 AM EDT With: Krista Daley Where: [facility] Normal [facility] Family Medicine Office/Clini c Noteon 12-11-2023 Family Medicine Office/Clinic Note HPI Staff Madyson is a 23 year old female presenting to [facility] care Establish Care: History: Any previous diagnosis: POTS (11/30/23) History of seeing any specialist: Jyoti Dickey CC for 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 BMI 33.0-33.9,adult (Z68.33: Body mass index [BMI] 33.0-33.9, adult) BMI education complete Ordered: omeprazole, 40 mg = 1 cap(s), Oral, Daily, # 30 cap(s), Refills(s) 1, Pharmacy: [facility], 168.3, cm, 12/11/23 13:07:00 EDT, Height/Length Dosing, 93.6, kg, 12/11/23 13:07:00 EDT, Weight Dosing 3. Class 1 obesity due to excess calories in adult (E66.09: Other obesity due to excess calories) see above Ordered: omeprazole, 40 mg = 1 cap(s), Oral, Daily, # 30 cap(s), Refills(s) 1, Pharmacy: [facility], 168.3, cm, 12/11/23 13:07:00 EDT, Height/Length [...] 03/05/2002 Recorded (more content not included)... Normal [facility] Comment on above: Result Comment: Elec tronically Signed By: Krista Daley\.br\Date and Time Signed: 12/11/23 13:32 EDT CNOVon 11-30-2023 CNOV Office Visit (NENMMN ) ----- PEREZMADYSON DOAN ([id number]) 2 F Date Time Provider Department 11/30/23 10:00 AM JYOTI DICKEY During your visit today, we recorded the following information about you: Pulse Blood pressure Weight Height 84/minute 118/79 93 kg 1.651 m Jyoti Dickey PA-C 11/30/2023 11:14 AM Signed [facility] New Patient Evaluation [...] experienced LOC while walking up the stairs. Baxter prodromal symptoms including lightheadedness and tunnel vision. [...] Urination: + (more content not included)... 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 Ordering physician: AURORA SANTIAGO Indication: Initial evaluation [...] * * Final * * * CC [facility] : [id number] Normal [facility] CNOVon 10-10-2023 CNOV Office Visit (NEADMN ) ----- MADYSON MAI ([id number]) 2 F Date Time Provider Department 10/10/23 2:00 PM AURORA SANTIAGO NEADMN During your visit today, we recorded the following information about you: Pulse Blood pressure Weight Height 108/minute 119/85 93 kg 1.651 m Aurora Santiago PA-C 10/10/2023 4:33 PM Signed [facility] New Patient Evaluation [...] on BC (more content not included)... Normal [facility] Quantiferon-TB Plus (Client Incubated)on 07-26-2023 Gamma interferon background IA Qn (Bld) 0.01 International_Unit/mL Invalid Interpretation Code [facility] Comment on above: Performed By: #### 1 [id number], [id number], [id number], [id number] #### [facility] [address] [place] [address] M. tuberculosis stim IFN-g by CD4+ CD8+ T-cells Qn (Bld) 0.30 International_Unit/mL Invalid Interpretation Code [facility] Comment on above: Performed By: #### 1 [id number], [id number], [id number], [id number] #### [facility] [address] [place] [address] M. tuberculosis stim IFN-g by CD4+ T-cells Qn (Bld) 0.23 International_Unit/mL Invalid Interpretation Code [facility] Comment on above: Performed By: #### 1 [id number], [id number], [id number], [id number] #### [facility] [address] [place] [address] M. tuberculosis stim IFN-g Ql (Bld) [Interp] Negative Invalid Interpretation Code Negative [facility] Comment on above: Result Comment: No r [...] interferon gamma. Chemiluminescence immunoassay methodology Performed at: [facility] [id number] PhD Rubio Vinson Performed By: #### 1 [id number], [id number], [id number], [id number] #### [facility] [address] [place] [address] Mitogen stimulated gamma interferon Qn (Bld) >10.00 Invalid Interpretation Code [facility] Comment on above: Performed By: #### 1 [id number], [id number], [id number] #### [facility] [address] [place] [address] Service comment (Unsp spec) [Interp] Comment Invalid Interpretation Code [facility] Comment on above: Result Comment: Link [email or web address] [...] for the test. Performed By: #### 1 [id number], [id number], [id number], [id number] #### [facility] [address] [place] [address] Hep Bs Abon 07-25-2023 HBV surface Ab Ql (S) Non-Reactive Invalid Interpretation Code [facility] Comment on above: Result Comment: Non Reactive: Inconsistent with immunity, less than 10 mIU/mL Reactive: Consistent with immunity, greater than 9.9 mIU/mL Performed at: [facility] [id number] PhD Rubio Vinson Performed By: #### 1 [id number], [id number], [id number], [id number] #### [facility] [address] [place] [address] Measles/Mumps/Rubella Immuni tyon 07-25-2023 MeV IgG IA Qn (S) 34.3 A unit/mL Invalid Interpretation Code Immune >16.4 [facility] Comment on above: Result Comment: Nega tive <13.5 Equivocal 13.5 - 16.4 Positive >16.4 Presence of antibodies to Rubeola is presumptive evidence of immunity except when acute infection is suspected. Performed By: #### 1 [id number], [id number], [id number], [id number] #### [facility] [address] [place] [address] MuV IgG IA Qn (S) <9.0 Low Immune >10.9 [facility] Comment on above: Result Comment: Nega tive <9.0 Equivocal 9.0 - 10.9 Positive >10.9 A positive result generally indicates past exposure to Mumps virus or previous vaccination. Performed at: [facility] [id number] PhD Rubio Vinson Performed By: #### 1 [id number], [id number], [id number], [id number] #### [facility] [address] [place] [address] Rubella virus IgG Qn (S) 1.53 [IU]/mL Invalid Interpretation Code Immune >0.99 [facility] Comment on above: Result Comment: Non- immune <0.90 Equivocal 0.90 - 0.99 Immune >0.99 Performed By: #### 1 [id number], [id number], [id number], [id number] #### [facility] [address] [place] [address] Varic IgGon 07-25-2023 VZV IgG IA Qn (S) 475 Invalid Interpretation Code Immune >165 [facility] Comment on above: Result Comment: Nega tive <135 Equivocal 135 - 165 Positive >165 A positive result generally indicates exposure to the pathogen or administration of specific immunoglobulins, but it is not indication of active infection or stage of disease. Performed at: [facility] [id number] PhD Rubio Vinson Performed By: #### 1 [id number], [id number], [id number], [id number] #### [facility] [address] [place] [address] CNOVon 07-10-2023 CNOV Office Visit (ORFWHP ) ----- MADYSON SCHMID ([id number]) 2 F Date Time Provider Department 07/10/23 9:40 AM JOSE ARMANDO GREY ORFWHP During your visit today, we recorded the following information about you: Jose Armando Grey DO 07/10/2023 10:08 AM Signed [facility] Office Visit Documentation Note [facility] Sports Medicine Orthopaedic and Rheumatologic [place] HISTORY OF PRESENT ILLNESS (HPI) CHIEF COMPLAINT / REASON FOR VISIT SERVICE DATE: July 10, 2023 PCP: No primary care provider on file. Madyson Schmid is here today at request of Dr. Jose Armando Schmid specifically for consultation of my opinion in regards to the chief complaint listed below. Correspondence will be shared today via the [employer] electronic health record or through regular mail, [...] She need to consider PT or personal care attendant. Reaction knee brace Consider [place] toradol, did discuss orthobiologics Follow up: Films prior to visit: Written instructions (see patient instructions) and verbal health education given to patient. Patient verbalizes understanding and agrees with the treatment plan. Jose Armando Grey D.O. [facility] Orthopaedic and Rheumatologic Twisting Department End Finder, [facility] AND T.E.A.M. Program Team Physician, [facility] [employer] Consulting Physician, [place] Martin Nagel, English Adjunct Faculty [phone] Referring Provider: SELF [200] Allergies As of [...] Level of (more content not included)... Normal [facility] HEART LATHAMon 07-10 [facility] Tobacco Screening.on 023 Adult depression screening assessment No [facility] 600 DO Work Phone: Tobacco use status [facility] b) No [facility] 600 DO Work Phone: Activated partial thrombopla stin time (aPTT) in platelet poor plasma by coagulation aOrdered By: Haris Martino on 06-08-2023 aPTT Coag (PPP) [Time] 28.9 s 25.1-36.5 [facility] Comment on above: A hematocrit value g reater than 55% may lead to inaccurate results in coagulation testing. Patients having hematocrit values >55% require a special collection tube for coagulation studies. Please contact the laboratory at [phone] for redraw instructions. Alanine aminotransferase [En zymatic activity/volume] in Serum or PlasmaOrdered By: Haris Martino on 06-08-2023 ALT [Catalytic activity/Vol] 42 U/L 7-52 [facility] Albumin [Mass/volume] in Ser um or Plasma by Bromocresol green (BCG) dye binding methoOrdered By: Haris Martino on 06-08-2023 Albumin BCG dye [Mass/Vol] 4.6 g/dL 3.5-5.7 [facility] Alkaline phosphatase [Enzyma tic activity/volume] in Serum or PlasmaOrdered By: Haris Martino on 06-08-2023 ALP [Catalytic activity/Vol] 78 U/L 34-104 [facility] Aspartate aminotransferase [ Enzymatic activity/volume] in Serum or PlasmaOrdered By: Haris Martino on 06-08-2023 AST [Catalytic activity/Vol] 22 U/L 13-39 [facility] Automated erythrocytes count in urine sediment (number/area)Ordered By: Haris Martino on 06-08-2023 RBC Auto (Urine sed) [#/Area] 5-9 [HPF] 0-4 [facility] Automated leukocytes count i n urine sediment (number/area)Ordered By: Haris Martino on 06-08-2023 WBC Auto (Urine sed) [#/Area] 3-4 [HPF] 0-4 [facility] Basophils Auto (Bld) [#/Vol] Ordered By: Haris Martino on 06-08-2023 Basophils (Bld) [#/Vol] 0.1 10*3/uL 0.0-0.2 [facility] Basophils/100 WBC Auto (Bld) Ordered By: Haris Martino on 06-08-2023 Basophils/100 WBC (Bld) 1.0 % . [facility] Bilirubin Test strip Ql (U)O rdered By: Haris Martino on 06-08-2023 Bilirubin Ql (U) Negative Negative [facility] Bilirubin.direct [Mass/volum e] in Serum or PlasmaOrdered By: Haris Martino on 06-08-2023 Bilirubin.direct [Mass/Vol] 0.10 mg/dL 0.03-0.18 [facility] Bilirubin.total [Mass/volume ] in Serum or PlasmaOrdered By: Haris Martino on 06-08-2023 Bilirubin [Mass/Vol] 0.4 mg/dL 0.3-1.0 [facility] Calcium [Mass/volume] in Ser um or PlasmaOrdered By: Haris Martino on 06-08-2023 Calcium [Mass/Vol] 9.4 mg/dL 8.6-10.3 [facility] Carbon dioxide, total [Moles /volume] in Serum or PlasmaOrdered By: Haris Martino on 06-08-2023 CO2 [Moles/Vol] 29.3 mmol/L 21.0-31.0 [facility] Chloride [Moles/volume] in S colin or PlasmaOrdered By: Haris Martino on 06-08-2023 Chloride [Moles/Vol] 104 mmol/L 98-107 [facility] Color Auto (U)Ordered By: Terrell red Salena on 06-08-2023 Color (U) Yellow Yellow [facility] Creatine kinase [Enzymatic a ctivity/volume] in Serum or PlasmaOrdered By: Haris Martino on 06-08-2023 CK [Catalytic activity/Vol] 55 U/L 30-223 [facility] Creatinine [Mass/volume] in Serum or PlasmaOrdered By: Haris Martino on 06-08-2023 Creatinine [Mass/Vol] 0.64 mg/dL 0.60-1.20 [facility] Eosinophils Auto (Bld) [#/Vo l]Ordered By: Haris Martino on 06-08-2023 Eosinophils (Bld) [#/Vol] 0.1 10*3/uL 0.0-0.45 [facility] Eosinophils/100 WBC Auto (Bl d)Ordered By: Haris Martino on 06-08-2023 Eosinophils/100 WBC (Bld) 0.8 % . [facility] Erythrocyte distribution wid th Auto (RBC) [Ratio]Ordered By: Haris Martino on 06-08-2023 Erythrocyte distribution width (RBC) [Ratio] 12.9 % 11.9-15.3 [facility] Fibrin D-dimer [Presence] in Platelet poor plasma by Latex agglutinationOrdered By: Haris Martino on 06-08-2023 Fibrin D-dimer LA Ql (PPP) < 200 ng/mL 0-243 [facility] Comment on above: The reference range for [...] coagulation studies. Please contact the laboratory at [phone] for redraw instructions. Globulin Calc (S) [Mass/Vol] Ordered By: Haris Martino on 06-08-2023 Globulin (S) [Mass/Vol] 2.9 g/dL [facility] Glucose [Mass/volume] in Ser um or PlasmaOrdered By: Haris Martino on 06-08-2023 Glucose [Mass/Vol] 79 mg/dL 70-100 [facility] Comment on above: ADA recommended refe rence rangeRandom Glucose Reference Range is dependent on time and content of last meal. Glucose of more than 200 mg/dL in a nonstressed, ambulatory subject supports the diagnosis of Diabetes Mellitus. HCG ( test) IA.rapi d Ql (U)Ordered By: Haris Martino on 06-08-2023 HCG ( test) Ql (U) Negative [facility] Hematocrit Auto (Bld) [Volum e fraction]Ordered By: Haris Martino on 06-08-2023 Hematocrit (Bld) [Volume fraction] 42.4 % 34.0-46.4 [facility] Hemoglobin [Mass/volume] in BloodOrdered By: Haris Martino on 06-08-2023 Hemoglobin (Bld) [Mass/Vol] 14.5 g/dL 11.8-15.4 [facility] INR in Platelet poor plasma by Coagulation assayOrdered By: Haris Martino on 06-08-2023 INR Coag (PPP) [Relative time] 1.0 {INR} [facility] Comment on above: INR Therapeutic Rang e [...] 06-08-2023 Ketones (U) [Mass/Vol] Negative Negative [facility] Laboratory - UrinalysisOrder ed By: Haris Martino on 06-08-2023 Hyaline casts LM Ql (Urine sed) 0-8 [LPF] 0-8 [facility] Leukocytes [#/volume] correc matt for nucleated erythrocytes in Blood by Automated counOrdered By: Haris Martino on 06-08-2023 WBC corrected for nucl RBC Auto (Bld) [#/Vol] 8.3 10*3/uL 3.8-11.6 [facility] Lymphocytes Auto (Bld) [#/Vo l]Ordered By: Haris Martino on 06-08-2023 Lymphocytes (Bld) [#/Vol] 3.0 10*3/uL 1.00-4.8 [facility] Lymphocytes/100 WBC Auto (Bl d)Ordered By: Haris Martino on 06-08-2023 Lymphocytes/100 WBC (Bld) 36.0 % . [facility] MCH Auto (RBC) [Entitic mass ]Ordered By: Haris Martino on 06-08-2023 MCH (RBC) [Entitic mass] 29.4 pg 24.7-34.3 [facility] MCHC Auto (RBC) [Mass/Vol]Or dered By: Haris Martino on 06-08-2023 MCHC (RBC) [Mass/Vol] 34.2 g/dL 32.0-35.0 [facility] MCV Auto (RBC) [Entitic vol] Ordered By: Haris Martino on 06-08-2023 MCV (RBC) [Entitic vol] 85.9 fL 80-100 [facility] Monocyte distribution width [Entitic volume] in Blood by AutomatedOrdered By: Haris Martino on 06-08-2023 Monocyte distribution width Auto (Bld) [Entitic vol] 18.39 % 0.00-20.00 [facility] Monocytes Auto (Bld) [#/Vol] Ordered By: Haris Martino on 06-08-2023 Monocytes (Bld) [#/Vol] 0.5 10*3/uL 0.0-0.8 [facility] Monocytes/100 WBC Auto (Bld) Ordered By: Haris Martino on 06-08-2023 Monocytes/100 WBC (Bld) 6.6 % . [facility] Natriuretic peptide B [Mass/ Vol]Ordered By: Haris Martino on 06-08-2023 Natriuretic peptide B (Bld) [Mass/Vol] 9.0 pg/mL 5-100 [facility] Neutrophils Auto (Bld) [#/Vo l]Ordered By: Haris Martino on 06-08-2023 Neutrophils (Bld) [#/Vol] 4.6 10*3/uL 1.8-7.7 [facility] Neutrophils/100 WBC Auto (Bl d)Ordered By: Haris Martino on 06-08-2023 Neutrophils/100 WBC (Bld) 55.6 % . [facility] Nitrite Test strip Ql (U)Ord ered By: Haris Martino on 06-08-2023 Nitrite Ql (U) Negative Negative [facility] No Panel InformationOrdered By: Haris Martino on 06-08-2023 Estimated GFR (CKD-EPI) > 60.0 mL/Min [facility] Pharmacy Creatinine Clearance (Chem 155.50 [facility] Nucleated erythrocytes [Pres ence] in Blood by Automated countOrdered By: Haris Martino on 06-08-2023 Nucleated RBC Auto Ql (Bld) 0.1 /100{WBC} 0-0.5 [facility] Platelet mean volume Auto (B ld) [Entitic vol]Ordered By: Haris Martino on 06-08-2023 Platelet mean volume (Bld) [Entitic vol] 8.2 fL 6.3-10.7 [facility] Platelets Auto (Bld) [#/Vol] Ordered By: Haris Martino on 06-08-2023 Platelets (Bld) [#/Vol] 225 10*3/uL 150-450 [facility] Potassium [Moles/volume] in Serum or PlasmaOrdered By: Haris Martino on 06-08-2023 Potassium [Moles/Vol] 4.0 mmol/L 3.5-5.1 [facility] Protein Auto test strip (U) [Mass/Vol]Ordered By: Haris Martino on 06-08-2023 Protein (U) [Mass/Vol] Negative Negative [facility] Protein [Mass/volume] in Ser um or PlasmaOrdered By: Haris Martino on 06-08-2023 Protein [Mass/Vol] 7.5 g/dL 6.4-8.9 [facility] Prothrombin time (PT)Ordered By: Haris Martino on 06-08-2023 PT Coag (PPP) [Time] 12.2 s 9.0-12.9 [facility] Comment on above: A hematocrit value g reater than 55% may lead to inaccurate results in coagulation testing. Patients having hematocrit values >55% require a special collection tube for coagulation studies. Please contact the laboratory at [phone] for redraw instructions. RBC Auto (Bld) [#/Vol]Ordere d By: Haris Martino on 06-08-2023 RBC (Bld) [#/Vol] 4.94 10*6/uL 3.60-5.00 [facility] Serum or plasma albumin/glob ulin mass ratioOrdered By: Haris Martino on 06-08-2023 Albumin/Globulin [Mass ratio] 1.6 {ratio} [facility] Serum or plasma anion gap de terminationOrdered By: Haris Martino on 06-08-2023 Anion gap [Moles/Vol] 9.7 mmol/L 6.0-15.0 [facility] Serum or plasma non-glucuron idated bilirubin measurement (mass/volume)Ordered By: Haris Martino on 06-08-2023 Bilirubin.indirect [Mass/Vol] 0.3 mg/dL [facility] Sodium [Moles/volume] in Ser um or PlasmaOrdered By: Haris Martino on 06-08-2023 Sodium [Moles/Vol] 139 mmol/L 136-145 [facility] Specific gravity Auto test s trip (U) [Rel density]Ordered By: Haris Martino on 06-08-2023 Specific gravity (U) [Rel density] 1.015 1.001-1.03 0 [facility] Squamous epithelial cells de tection in urine sediment by light microscopyOrdered By: Haris Martino on 06-08-2023 Epithelial cells.squamous LM Ql (Urine sed) 3-4 [HPF] 0-2 [facility] Troponin I.cardiac [Mass/vol ume] in Serum or Plasma by Detection limit <= 0.01 ng/Ordered By: Haris Martino on 06-08-2023 Troponin I.cardiac DL <= 0.01 ng/mL [Mass/Vol] < 2.3 pg/mL 0.0-15.0 [facility] Urea nitrogen [Mass/volume] in Serum or PlasmaOrdered By: Haris Martino on 06-08-2023 Urea nitrogen [Mass/Vol] 10 mg/dL 7-25 [facility] Urine bacteria detection by automated methodOrdered By: Haris Martino on 06-08-2023 Bacteria Auto Ql (U) 1+ None Seen [facility] Urine clarity by refractomet ry automatedOrdered By: Haris Martino on 06-08-2023 Clarity Refractometry automated (U) Clear Clear [facility] Urine glucose measurement by automated test strip (mass/volume)Ordered By: Haris Martino on 06-08-2023 Glucose Auto test strip (U) [Mass/Vol] Normal mg/dL Normal [facility] Urine hemoglobin detection b y automated test stripOrdered By: Haris Martino on 06-08-2023 Hemoglobin Auto test strip Ql (U) Negative Negative [facility] Urine leukocyte esterase det ection by automated test stripOrdered By: Haris Martino on 06-08-2023 Leukocyte esterase Auto test strip Ql (U) 1+ Negative [facility] Urobilinogen Auto test strip (U) [Mass/Vol]Ordered By: Haris Martino on 06-08-2023 Urobilinogen (U) [Mass/Vol] Normal mg/dL Normal [facility] WBC Auto (Bld) [#/Vol]Ordere d By: Haris Martino on 06-08-2023 WBC (Bld) [#/Vol] 8.3 10*3/uL 3.8-11.6 [facility] pH Auto test strip (U)Ordere d By: Haris Martino on 06-08-2023 pH (U) 6.5 [pH] 5.0-9.0 [facility] Alanine aminotransferase [En zymatic activity/volume] in Serum or PlasmaOrdered By: Carlitos Nguyen on 04-25-2023 ALT [Catalytic activity/Vol] 18 U/L 7-52 [facility] Albumin [Mass/volume] in Ser um or Plasma by Bromocresol green (BCG) dye binding methoOrdered By: Carlitos Nguyen on 04-25-2023 Albumin BCG dye [Mass/Vol] 4.8 g/dL 3.5-5.7 [facility] Alkaline phosphatase [Enzyma tic activity/volume] in Serum or PlasmaOrdered By: Carlitos Nguyen on 04-25-2023 ALP [Catalytic activity/Vol] 73 U/L 34-104 [facility] Aspartate aminotransferase [ Enzymatic activity/volume] in Serum or PlasmaOrdered By: Carlitos Nguyen on 04-25-2023 AST [Catalytic activity/Vol] 18 U/L 13-39 [facility] Bilirubin.total [Mass/volume ] in Serum or PlasmaOrdered By: Carlitos Nguyen on 04-25-2023 Bilirubin [Mass/Vol] 0.5 mg/dL 0.3-1.0 [facility] Calcium [Mass/volume] in Ser um or PlasmaOrdered By: Carlitos Nguyen on 04-25-2023 Calcium [Mass/Vol] 9.9 mg/dL 8.6-10.3 [facility] Carbon dioxide, total [Moles /volume] in Serum or PlasmaOrdered By: Carlitos Nguyen on 04-25-2023 CO2 [Moles/Vol] 25.9 mmol/L 21.0-31.0 [facility] Chloride [Moles/volume] in S colin or PlasmaOrdered By: Carlitos Nguyen on 04-25-2023 Chloride [Moles/Vol] 105 mmol/L 98-107 [facility] Cholesterol [Mass/volume] in Serum or PlasmaOrdered By: Carlitos Nguyen on 04-25-2023 Cholesterol [Mass/Vol] 208 mg/dL 140-200 [facility] Comment on above: Chol less than 200 m g/dl low riskChol 201-239 mg/dl borderline riskChol 240 mg/dl and greater high risk Cholesterol in LDL Calc [Mas s/Vol]Ordered By: Carlitos Nguyen on 04-25-2023 Cholesterol in LDL [Mass/Vol] 136 mg/dL 0-100 [facility] Comment on above: LDL ATP III CLASSIFI CATIONLDL less than 100 mg/dL OptimalLDL 100-129 mg/dL Near or above optimalLDL 130-159 mg/dL Borderline highLDL 160-189 mg/dL HighLDL greater than 189 mg/dL Very high Cholesterol in VLDL Calc [Ma ss/Vol]Ordered By: Carlitos Nguyen on 04-25-2023 Cholesterol in VLDL [Mass/Vol] 16 mg/dL [facility] Creatinine [Mass/volume] in Serum or PlasmaOrdered By: Carlitos Nguyen on 04-25-2023 Creatinine [Mass/Vol] 0.81 mg/dL 0.60-1.20 [facility] Globulin Calc (S) [Mass/Vol] Ordered By: Carlitos Nguyen on 04-25-2023 Globulin (S) [Mass/Vol] 2.6 g/dL [facility] Glucose [Mass/volume] in Ser um or PlasmaOrdered By: Carlitos Nguyen on 04-25-2023 Glucose [Mass/Vol] 84 mg/dL 70-100 [facility] No Panel InformationOrdered By: Carlitos Nguyen on 04-25-2023 Estimated GFR (CKD-EPI) > 60.0 mL/Min [facility] Creatinine Clearance (Chem N/A [facility] Potassium [Moles/volume] in Serum or PlasmaOrdered By: Carlitos Nguyen on 04-25-2023 Potassium [Moles/Vol] 4.3 mmol/L 3.5-5.1 [facility] Comment on above: Hemolysis is present at a level that could interfere with the result. Protein [Mass/volume] in Ser um or PlasmaOrdered By: Carlitos Nguyen on 04-25-2023 Protein [Mass/Vol] 7.4 g/dL 6.4-8.9 [facility] Serum or plasma albumin/glob ulin mass ratioOrdered By: Carlitos Nguyen on 04-25-2023 Albumin/Globulin [Mass ratio] 1.8 {ratio} [facility] Serum or plasma anion gap de terminationOrdered By: Carlitos Nguyen on 04-25-2023 Anion gap [Moles/Vol] 12.4 mmol/L 6.0-15.0 [facility] Serum or plasma high density lipoprotein (HDL) cholesterol measurementOrdered By: Carlitos Nguyen on 04-25-2023 Cholesterol in HDL [Mass/Vol] 55 mg/dL 23-92 [facility] Comment on above: HDL CHOL ATP-III CLA SSIFICATION Cardiovascular RiskHDL > or equal to 60 mg/dL LOWHDL < 40 mg/dL HIGH Serum or plasma total choles terol/high density lipoprotein (HDL) cholesterol mass ratOrdered By: Carlitos Nguyen on 04-25-2023 Cholesterol.total/Chol esterol in HDL [Mass ratio] 3.8 {ratio} <5.0 [facility] Sodium [Moles/volume] in Ser um or PlasmaOrdered By: Carlitos Nguyen on 04-25-2023 Sodium [Moles/Vol] 139 mmol/L 136-145 [facility] Triglyceride [Mass/volume] i n Serum or PlasmaOrdered By: Carlitos Nguyen on 04-25-2023 Triglyceride [Mass/Vol] 83 mg/dL 0-149 [facility] Comment on above: TRIG ATP III CLASSIF ICATIONTRIG less than 150 mg/dL NormalTRIG 150-199 mg/dL Borderline highTRIG 200-500 mg/dL High TRIG greater than 500 mg/dL Very highStandard traceable to the Center for Disease Conrtrol and Prevention (CDC) test method. Urea nitrogen [Mass/volume] in Serum or PlasmaOrdered By: Carlitos Nguyen on 04-25-2023 Urea nitrogen [Mass/Vol] 15 mg/dL 7-25 [facility] Tobacco Screening.on 023 Adult depression screening assessment No [facility] 320 DO Work Phone: Fall risk assessment a) No falls within the last year [facility] 320 DO Work Phone: Tobacco use status CPHS b) No [facility] 320 DO Work Phone: Office Visit (Cardiology)on [...] in adult Healthy Weight Tips; Status:Complete; Done: [id number] SocHx: Never a smoker Tobacco Use Screening; Status:Complete; Done: [id number] Patient Instructions Please bring all medicines, vitamins, [...] she did get a second opinion in [place], and no change in medication was suggested [...] sinus sometime (more content not included)... Normal [facility] Tobacco Screening.on 022 Tobacco use status HS b) No -[facility] [facility] 250 DO Work Phone: Cardiovasc Arrhythmia Result son 07-31-2022 Cardiovasc Arrhythmia Results Reason For Visit MADYSON is here for the application of a Ziopatch monitor. Ordering Physician: Dr. Maza Diagnosis: abn TTT, dyspnea, syncope, autonomic orthostatic hypotension [facility] equipment agreement signed. MADYSON understands monitor is to be returned on: 08/14/22 Monitor number [id number] applied. Procedure Date I received for dictation [...] MD; Aug 28 2022 10:26AM EST Normal [facility] Office Visit (Cardiology)on 07-21-2022 Follow-up visit Diagnoses/Problems [...] Chan Jiang in 1 week. Tammy Meehan, ANIMAL ASSISTED THERAPIST, am scribing for and in the presence [...] heart murmur and has been transferred to [place] [facility] There is no family history [...] cardiac data (more content not included)... Normal [facility] Tobacco Screening.on 10-28-2 022 Fall risk assessment b) One or more fall s in the last year [facility] 320 DO Work Phone: Tobacco use status [facility] b) No [facility] 320 DO Work Phone: Office Visit (Cardiology)on [...] Intake Activity Log Entry by Mar Orourke (dgTrovaGene) on 2022-07-13 14:12 Status Change: To Confirmed - N/A AMA Intake updated by [facility] ACCOUNT (INTRANET) on 2022-07-11 22:02 New Recipient: [...] Done: 10Jul2022 Healthy Weight Tips; Status:Complete; Done: [id number] Some eating tips that can help you [...] from 6 (more content not included)... Normal [facility] Tobacco Screening.on 022 Tobacco use status CPHS b) No [facility] [facility] 250 DO Work Phone: COVID CepheidOrdered By: Daniele Pearce on 06-01-2022 SARS-CoV-2 (COVID-19) Ab IA Ql Negative Negative [facility] Comment on above: This is a duplicate [employer] Xpert Xpress CoV-2/Flu/RSV Plus RNA by RT-PCR result to be used for statistical tracking purpose only. SARS-CoV-2 (COVID-19) RNA PERFECTO+probe Ql (Unsp spec) [facility] Office Visit (Cardiology)on 05-18-2022 Follow-up visit Diagnoses/Problems [...] in adult Healthy Weight Tips; Status:Complete; Done: [id number] Some eating tips that can help you lose weight.; Status:Complete; Done: [id number] Dyspnea, Syncope, unspecified syncope type Urine Test; Status:Active - Retrospective By Protocol Authorization; Requested for:[id number]; Palpitation Start: Atenolol 25 MG Oral Tablet; TAKE 1 TABLET DAILY Syncope, unspecified syncope type Tilt Table; Status:Hold For - Scheduling,Retrospective By Protocol Authorization; Requested for:[id number]; Patient Instructions Please bring all medicines, vitamins, [...] walking to the bathroom. She will see candy vendor in the near future, she had her pulmonary function test which I reviewed, there is concern for chronic asthma, but no reactive airway disease. She has 3 dogs that she had, and 1 cat at home. She is not orthostatic. She is feeling palpitations quite a bit. Results of the pulmonary function test and a Micah of [employer] was reviewed. Also reviewed stress test and [...] 3.5 c (more content not included)... Normal [facility] Tobacco Screening.on 022 Tobacco use status CPHS b) No [facility] y 250 DO Work Phone: No Panel Informationon 05-03 -[facility] [facility] 250 DO Work Phone: [facility] [facility] 250 DO Work Phone: Cardiovasc Arrhythmia Result son 03-28-2022 Cardiovasc Arrhythmia Results Reason For Visit Event Monitor: MADYSON is here for the application of a 30 day event monitor in office., Diagnosis: Palps, Dyspnea, Chest pain Ordering Physician: Enrollment sent to: [employer] Monitor number [id number] applied. Holter monitor printed and placed on [...] ySite 05/03/2022 10:00 AMTraMaría Elena brady MDCardiologySurgery [facility] 05/18/2022 09:15 AMMelodie Alcaraz MDCardiology[address] [place] 250 DO Signatures Electronically signed by : Melodie Alcaraz MD; May 01 2022 7:56PM EST (Author) Normal [facility] Laboratory - Chemistry and C hemistry - challengeOrdered By: Melodie Alcaraz on 03-24-2022 Natriuretic peptide B (Bld) [Mass/Vol] 27.0 pg/mL 5-100 [facility] No Panel InformationOrdered By: Melodie Alcaraz on 03-24-2022 D-Dimer Quantitative (PE/DVT) < 200 ng/mL 0-243 [facility] Comment on above: The reference range for [...] No Panel Informationon 03-24 0.70\S\0.70 Normal 0.45-5.33 [facility] 250 DO Work Phone: Comment on above: PERFORMED BY:[facility] [place] [place], [place] [id number] MEDICAL DIRECTOROFE ELLIS M.D. 0.99\S\0.99 Normal 0.61-1.12 [facility] Work Phone: 27.0\S\27.0 Normal 5-100 [facility] [facility] [facility] 250 DO Work Phone: Comment on above: PERFORMED BY:[facility] [place], [place] [id number] MEDICAL DIRECTOROFE ELLIS M.D. < 200 Normal 0-243 [facility] [facility] 250 DO Work Phone: Comment [...] hospitalized patients due to co-morbid conditions.PERFORMED BY:[facility] [place] [phone] MEDICAL DIRECTOROFE ELLIS M.D. TSH DL <= 0.005 mIU/L QnOrde red By: Melodie Alcaraz on 03-24-2022 TSH Qn 0.70 m[IU]/L 0.45-5.33 [facility] Thyroxine (T4) free [Mass/vo lume] in Serum or PlasmaOrdered By: Melodie Alcaraz on 03-24-2022 Free T4 [Mass/Vol] 0.99 ng/dL 0.61-1.12 [facility] Office Visit (Cardiology)on 03-23-2022 Follow-up [...] brother had to be taken to [facility], and has history of heart murmur. [...] frequently pic (more content not included)... Normal [facility] PHQ-2 VITALSon 03-23-2022 Adult depression screening assessment No [facility] [facility] 250 DO Work Phone: Fall risk assessment c) Not medically indicated [facility] 250 DO Work Phone: Tobacco use status CPHS b) No [facility] 250 DO Work Phone: ARMANI BY IFA WITH REFLEXon Nuclear Ab IF (S) [Titer] Negative Negative [facility] CCP ANTIBODY IGGon Cyclic citrullinated peptide IgG Qn <15 <20 Units [facility] Cyclic citrullinated peptide IgG Qnon 01-26-2022 CCP Antibody IgG Qualitative Negative Negative [facility] Nuclear Ab IA Ql (S)on 01-26 ARMANI by EIA, Qual Negative Negative [facility] ARMANI BY IFA WITH REFLEXon Nuclear Ab IF (S) [Titer] Negative Normal Negative [facility] Comment on above: Order Comment: Speci men Type: BLOOD SPECIMEN Ordering Facility: [facility] Address: [address] [place] [address] Result Comment: Anti -nuclear antibody test is used as an aid in diagnosis of systemic autoimmune diseases. Where positive and clinically warranted, follow-up using disease-specific testing is recommended. Low positive titers are not uncommon with advanced age, certain chronic infections, and malignancies among others. Test methodology: Indirect fluorescence immunoassay (IFA) using HEp-2 cells. Performed By: #### A NAIFR #### [facility] CLIA [id number] [address] [place] [address] [place] [address] [place] C-REACTIVE PROTEIN (CRP)on 0 01-25-2022 CRP [Mass/Vol] 0.4 mg/dL <0.9 mg/dL [facility] C1 ESTERASE INHIBITon 2021 C1 ESTERASE INHIBIT 26 mg/dL Normal 21-38 [facility] Comment on above: Order Comment: Speci men Type: BLOOD SPECIMEN Ordering Facility: [facility] Address: [address] [place], [place] [address] Result Comment: Perf ormed By: [facility] [employer] [address] [place] [address] Special Events Manager: Brittni Moscoso MD Performed By: #### 1 6570-4, 09415-9, 97430-2, 21512-1, 95094-3, 03668-5, 48468-8, 18702-3 #### [facility] CLIA [id number] [address] [place] C2 COMPLEMENT BLDon 01-26-20 22 C2 COMPLEMENT 2.4 mg/dL Normal 1.6-4.0 [facility] Comment on above: Order Comment: Speci ana rosa Type: BLOOD SPECIMEN Ordering Facility: [facility] Address: [address] [place] [id number] Result Comment: INTE RPRETIVE INFORMATION: Complement Component 2 Decreased C2 levels may be associated with increased susceptibility to infection (especially pneumococcal infections), systemic lupus erythematosus-like disease, rashes, arthritis and nephritis, and with C1-Esterase deficiency. Increased C2 levels are associated with the acute phase response. This test was developed and its performance characteristics determined by [facility]. It has not been cleared or approved by the [place] Food and Drug Administration. This test was performed in a CLIA certified laboratory and is intended for clinical purposes. Performed By: [facility] [address] [place] [address] Special Events Manager: Brittni Moscoso MD Performed By: #### 1 6570-4, 03705-2, 91184-3, 06012-9, 84281-2, 25597-7, 15115-3, 95203-6 #### [facility] CLIA [id number] [facility] [place] [address] [place] C3 COMPLEMENT BLDon 01-26-20 22 Complement C3 [Mass/Vol] 130 mg/dL 86 - 166 mg/dL [facility] C3 SerPl-mCncon 01-25-2022 Complement C3 [Mass/Vol] 130 mg/dL Normal 86-166 [facility] Comment on above: Order Comment: Speci men Type: BLOOD SPECIMEN Ordering Facility: [facility] Address: [address] [place] [id number] Performed By: #### 1 6570-4, 21932-9, 24552-5, 55685-7, 15568-9, 94920-3, 06768-7, 30982-8 #### [facility] CLIA [id number] [address] [place] [address] [place] C4 COMPLEMENT BLDon 01-26-20 Complement C4 [Mass/Vol] 30 mg/dL 13 - 46 mg/dL [facility] C4 SerPl-mCncon 01-25-2022 Complement C4 [Mass/Vol] 30 mg/dL Normal 13-46 [facility] Comment on above: Order Comment: Speci men Type: BLOOD SPECIMEN Ordering Facility: [facility] Address: [address] [place] [address] Performed By: #### 1 6570-4, 47637-3, 31756-0, 01514-2, 32785-7, 61407-3, 54455-7, 16575-5 #### [facility] CLIA [id number] [address] [place] [address] [place] CBC panel Auto (Bld)on 01-25 Erythrocyte distribution width (RBC) [Ratio] 12.1 % Normal 11.5-15.0 [facility] Comment on above: Order Comment: Speci men Type: BLOOD SPECIMEN Ordering Facility: [facility] Address: [address] [place] [address] Performed By: #### 1 6570-4, 84880-5, 87491-7, 29328-9, 10705-5, 16258-4, 03606-3, 88736-6 #### [facility] CLIA [id number] [address] [place] [address] [place] Hematocrit (Bld) [Volume fraction] 42.6 % Normal 36.0-46.0 [facility] Comment on above: Order Comment: Speci men Type: BLOOD SPECIMEN Ordering Facility: [facility] Address: [address] [place], [place] [phone] Performed By: #### 1 6570-4, 91002-9, 06157-7, 38997-6, 52908-5, 02665-7, 17826-1, 00532-1 #### [facility] CLIA [id number] [address] [place] [address] [place] Hemoglobin (Bld) [Mass/Vol] 13.8 g/dL Normal 11.5-15.5 [facility] Comment on above: Order Comment: Speci men Type: BLOOD SPECIMEN Ordering Facility: [facility] Address: [address] [place] [address] Performed By: #### 1 6570-4, 96068-2, 10443-4, 37446-9, 69436-0, 30851-0, 05343-5, 14025-2 #### [facility] CLIA [id number] [address] [place] [address] [place] MCH (RBC) [Entitic mass] 28.3 pg Normal 26.0-34.0 [facility] Comment on above: Order Comment: Speci men Type: BLOOD SPECIMEN Ordering Facility: [facility] Address: [address] [place] [address] Performed By: #### 1 6570-4, 18172-9, 55079-8, 91146-0, 71127-3, 36719-4, 89884-9, 60323-5 #### [facility] CLIA [id number] [address] [place] [address] [place] MCHC (RBC) [Mass/Vol] 32.4 g/dL Normal 30.5-36.0 [facility] Comment on above: Order Comment: Speci men Type: BLOOD SPECIMEN Ordering Facility: [facility] Address: [address] [place] [address] Performed By: #### 1 6570-4, 34374-0, 98582-9, 91397-5, 03058-9, 32198-8, 13495-3, 41139-9 #### [facility] CLIA [id number] [address] [place] [address] [place] MCV (RBC) [Entitic vol] 87.3 fL Normal 80.0-100.0 [facility] Comment on above: Order Comment: Speci men Type: BLOOD SPECIMEN Ordering Facility: [facility] Address: [address] [place] [address] Performed By: #### 1 6570-4, 29374-7, 16518-1, 41224-1, 17245-3, 51195-6, 31302-4, 49507-9 #### [facility] CLIA [id number] [address] [place] [address] [place] Nucleated RBC (Bld) [#/Vol] 10*3/uL Normal <0.01 [facility] Comment on above: Order Comment: Speci men Type: BLOOD SPECIMEN Ordering Facility: [facility] Address: [address] [place], [place] [phone] Performed By: #### 1 6570-4, 21134-4, 42043-3, 23721-5, 29113-8, 12427-4, 83211-9, 47561-3 #### [facility] CLIA [id number] [address] [place] [address] [place] Platelet mean volume (Bld) [Entitic vol] 10.3 fL Normal 9.0-12.7 [facility] Comment on above: Order Comment: Speci men Type: BLOOD SPECIMEN Ordering Facility: [facility] Address: [address] [place] [address] Performed By: #### 1 6570-4, 90228-9, 62313-5, 27439-2, 11778-4, 55361-6, 45473-8, 90529-4 #### [facility] CLIA [id number] [address] [place] [address] [place] Platelets (Bld) [#/Vol] 213 10*3/uL Normal 150-400 [facility] Comment on above: Order Comment: Speci men Type: BLOOD SPECIMEN Ordering Facility: [facility] Address: [address] [place] [address] Performed By: #### 1 6570-4, 73834-2, 79037-5, 23612-8, 63241-3, 78107-3, 02359-7, 57261-0 #### [facility] CLIA [id number] [address] [place] [address] [place] RBC (Bld) [#/Vol] 4.88 10*6/uL Normal 3.90-5.20 [facility] Comment on above: Order Comment: Speci men Type: BLOOD SPECIMEN Ordering Facility: [facility] Address: [address] [place] [address] Performed By: #### 1 6570-4, 78120-5, 23774-3, 11307-8, 83960-8, 87148-6, 84951-6, 69957-4 #### [facility] CLIA [id number] [address] [place] [address] [place] WBC (Bld) [#/Vol] 4.77 10*3/uL Normal 3.70-11.00 [facility] Comment on above: Order Comment: Speci men Type: BLOOD SPECIMEN Ordering Facility: [facility] Address: [address] [place] [address] Performed By: #### 1 6570-4, 49681-4, 12162-0, 27049-0, 50646-6, 56061-2, 13943-3, 04906-5 #### [facility] CLIA [id number] [address] [place] [address] [place] Erythrocyte distribution width (RBC) [Ratio] 12.1 % 11.5 - 15.0 % [facility] Hematocrit (Bld) [Volume fraction] 42.6 % 36.0 - 46.0 % [facility] Hemoglobin (Bld) [Mass/Vol] 13.8 g/dL 11.5 - 15.5 g/dL [facility] MCH (RBC) [Entitic mass] 28.3 pg 26.0 - 34.0 pg [facility] MCHC (RBC) [Mass/Vol] 32.4 g/dL 30.5 - 36.0 g/dL [facility] MCV (RBC) [Entitic vol] 87.3 fL 80.0 - 100.0 fL [facility] Nucleated RBC (Bld) [#/Vol] 10*3/uL <0.01 k/uL [facility] Platelet mean volume (Bld) [Entitic vol] 10.3 fL 9.0 - 12.7 fL [facility] Platelets (Bld) [#/Vol] 213 10*3/uL 150 - 400 k/uL [facility] RBC (Bld) [#/Vol] 4.88 10*6/uL 3.90 - 5.20 m/uL [facility] WBC (Bld) [#/Vol] 4.77 10*3/uL 3.70 - 11.00 k/uL [facility] CRP SerPl-ncon 01-25-2022 CRP [Mass/Vol] 0.4 mg/dL Normal <0.9 [facility] Comment on above: Order Comment: Jose Carlos [facility] Type: BLOOD SPECIMEN Ordering Facility: [facility] Address: [address] [place] [address] Performed By: #### 1 6570-4, 50892-7, 56798-1, 40032-2, 10848-1, 05324-4, 24385-2, 62609-4 #### [facility] CLIA [id number] [address] [place] [address] OF [facility] Centromere Ab IF Ql (S)on Centromere Ab Qn (S) <0.2 Normal <1.0 [facility] Comment on above: Order Comment: Jose Carlos oseguera Type: BLOOD SPECIMEN Ordering Facility: [facility] Address: [address] [place] [address] Result Comment: Anti -centromere antibody is used as in aid in diagnosis of systemic sclerosis. Clinical correlation is required. Test Methodology: Multiplex flow immunoassay. Performed By: #### 1 6570-4, 75470-8, 99794-5, 14444-3, 04925-7, 62009-2, 35211-1, 55426-6 #### [facility] CLIA [id number] [address] [place] [address] CENTROMERE AB QUAL Negative Normal Negative [facility] Comment on above: Order Comment: Speci men Type: BLOOD SPECIMEN Ordering Facility: [facility] Address: [address] [place] [address] Performed By: #### 1 6570-4, 31717-4, 39493-2, 15941-2, 30752-5, 90539-8, 70528-8, 68410-9 #### [facility] CLIA [id number] [address] [place] [address] [place] Chromatin Ab Qnon 01-25-2022 CHROMATIN AB QUAL Negative Normal Negative [facility] Comment on above: Order Comment: Speci men Type: BLOOD SPECIMEN Ordering Facility: [facility] Address: [address] [place] [address] Performed By: #### 1 6570-4, 05918-7, 23344-0, 92862-0, 17198-8, 88791-3, 10358-9, 17331-3 #### [facility] CLIA [id number] [address] [place] [address] [place] Chromatin Ab SerPl-aCncon Chromatin Ab Qn <0.2 Normal <1.0 [facility] Comment on above: Order Comment: Speci men Type: BLOOD SPECIMEN Ordering Facility: [facility] Address: [address] [place] [address] Result Comment: Test Methodology: Multiplex flow immunoassay. Performed By: #### 1 6570-4, 83068-7, 42820-4, 41039-4, 88892-8, 39658-6, 74060-0, 80110-6 #### [facility] CLIA [id number] [address] [place], [place] [address] OF [facility] Comprehensive metabolic 2000 panelon 01-25-2022 Albumin [Mass/Vol] 4.5 g/dL 3.9 - 4.9 g/dL [facility] ALP [Catalytic activity/Vol] 65 U/L 34 - 123 U/L [facility] ALT [Catalytic activity/Vol] 14 U/L 7 - 38 U/L [facility] Anion gap [Moles/Vol] 11 mmol/L 9 - 18 mmol/L [facility] AST [Catalytic activity/Vol] 14 U/L 13 - 35 U/L [facility] Bilirubin [Mass/Vol] 0.3 mg/dL 0.2 - 1 .3 mg/dL [facility] Calcium [Mass/Vol] 9.5 mg/dL 8.5 - 10. 2 mg/dL [facility] Chloride [Moles/Vol] 105 mmol/L 97 - 10 5 mmol/L [facility] CO2 [Moles/Vol] 26 mmol/L 22 - 30 mmol/L [facility] Creatinine [Mass/Vol] 0.71 mg/dL 0.58 - 0.96 mg/dL [facility] Estimated Glomerular Filtration Rate 125 mL/min/1.73m >=60 mL/min/1.7 3m [facility] Glucose [Mass/Vol] 94 mg/dL 74 - 99 mg/dL [facility] Potassium [Moles/Vol] 4.6 mmol/L 3.7 - 5.1 mmol/L [facility] Protein [Mass/Vol] 7.2 g/dL 6.3 - 8.0 g/dL [facility] Sodium [Moles/Vol] 142 mmol/L 136 - 144 mmol/L [facility] Urea nitrogen [Mass/Vol] 8 mg/dL 7 - 21 mg/dL [facility] Albumin [Mass/Vol] 4.5 g/dL Normal 3.9-4.9 [facility] Comment on above: Order Comment: Speci men Type: BLOOD SPECIMEN Ordering Facility: [facility] Address: [address] [place], [place] [id number] Performed By: #### 1 6570-4, 14535-1, 10611-2, 80734-0, 21939-4, 77527-6, 60594-1, 56589-8 #### [facility] CLIA [id number] [address] [place] [address] [place] ALP [Catalytic activity/Vol] 65 U/L Normal 34-123 [facility] Comment on above: Order Comment: Speci men Type: BLOOD SPECIMEN Ordering Facility: [facility] Address: [address] [place] [address] Performed By: #### 1 6570-4, 73855-9, 41140-5, 43533-3, 96147-4, 28566-5, 95224-1, 68937-2 #### [facility] CLIA [id number] [address] [place] [address] [place] ALT [Catalytic activity/Vol] 14 U/L Normal 7-38 [facility] Comment on above: Order Comment: Speci men Type: BLOOD SPECIMEN Ordering Facility: [facility] Address: [address] [place] [address] Performed By: #### 1 6570-4, 62436-1, 03578-8, 93030-4, 69814-9, 20185-3, 75112-8, 41643-8 #### [facility] CLIA [id number] [address] [place] [address] [place] Anion gap [Moles/Vol] 11 mmol/L Normal 9-18 [facility] Comment on above: Order Comment: Speci men Type: BLOOD SPECIMEN Ordering Facility: [facility] Address: [address] [place] [address] Performed By: #### 1 6570-4, 97201-3, 56124-6, 18882-4, 34913-5, 30189-7, 28433-6, 50884-0 #### [facility] CLIA [id number] [address] [place] [address] [place] AST [Catalytic activity/Vol] 14 U/L Normal 13-35 [facility] Comment on above: Order Comment: Speci men Type: BLOOD SPECIMEN Ordering Facility: [facility] Address: [address] [place] [address] Performed By: #### 1 6570-4, 69825-0, 06615-4, 25489-6, 82239-6, 21914-4, 67882-5, 47835-5 #### [facility] CLIA [id number] [address] [place] [address] [place] Bilirubin [Mass/Vol] 0.3 mg/dL Normal 0.2-1.3 [facility] Comment on above: Order Comment: Speci men Type: BLOOD SPECIMEN Ordering Facility: [facility] Address: [address] [place] [address] Performed By: #### 1 6570-4, 76993-4, 23178-0, 51998-3, 71735-9, 42845-7, 32105-2, 70215-3 #### [facility] CLIA [id number] [address] [place] [address] [place] Calcium [Mass/Vol] 9.5 mg/dL Normal 8.5-10.2 [facility] Comment on above: Order Comment: Speci men Type: BLOOD SPECIMEN Ordering Facility: [facility] Address: [address] [place] [address] Performed By: #### 1 6570-4, 77064-3, 89137-8, 50065-2, 38843-2, 11592-4, 05589-4, 98951-1 #### [facility] CLIA [id number] [address] [place] [address] [place] Chloride [Moles/Vol] 105 mmol/L Normal 97-105 [facility] Comment on above: Order Comment: Speci men Type: BLOOD SPECIMEN Ordering Facility: [facility] Address: [address] [place] [address] Performed By: #### 1 6570-4, 06090-9, 22804-3, 28443-0, 04599-1, 30614-5, 69244-4, 33015-2 #### [facility] CLIA [id number] [address] [place] [address] [place] CO2 [Moles/Vol] 26 mmol/L Normal 22-30 [facility] Comment on above: Order Comment: Jose Carlos oseguera Type: BLOOD SPECIMEN Ordering Facility: [facility] Address: [address] [place] [address] Performed By: #### 1 6570-4, 23563-1, 05274-1, 47563-1, 16148-6, 08748-9, 80426-4, 29630-5 #### [facility] CLIA [id number] [address] [place] [address] [place] Creatinine [Mass/Vol] 0.71 mg/dL Normal 0.58-0.96 [facility] Comment on above: Order Comment: Jose Carlos men Type: BLOOD SPECIMEN Ordering Facility: [facility] Address: [address] [place] [address] Performed By: #### 1 6570-4, 24325-8, 88302-1, 65927-5, 85087-8, 41014-5, 94537-5, 28901-8 #### [facility] CLIA [id number] [address] [place] [address] [place] ESTIMATED GLOMERULAR FILTRATION RATE 125 mL/min/1.73m??? Normal >=60 [facility] Comment on above: Order Comment: Jose Carlos men Type: BLOOD SPECIMEN Ordering Facility: [facility] Address: [address] [place] [address] Result Comment: Francesca mated Glomerular Filtration Rate [...] actual GFR. Performed By: #### 1 6570-4, 30527-3, 88243-3, 04369-6, 58928-4, 61099-1, 65394-8, 68121-2 #### [facility] CLIA [id number] [address] [place] [address] [place] Glucose [Mass/Vol] 94 mg/dL Normal 74-99 [facility] Comment on above: Order Comment: Speci men Type: BLOOD SPECIMEN Ordering Facility: [facility] Address: [address] [place], [place] [phone] Result Comment: The [place] [employer] (ADA) provides guidance for cutoff [...] Standards of Medical Care in Diabetes 2016, [place] [employer]. Diabetes Care. 2016.39(Suppl 1). Performed By: #### 1 6570-4, 73937-2, 30808-9, 61671-5, 42810-0, 80118-6, 19744-6, 41647-8 #### [facility] CLIA [id number] [address] [place] [address] [place] Potassium [Moles/Vol] 4.6 mmol/L Normal 3.7-5.1 [facility] Comment on above: Order Comment: Horacioi men Type: BLOOD SPECIMEN Ordering Facility: [facility] Address: [address] [place] [phone] Performed By: #### 1 6570-4, 34173-0, 31587-6, 85391-9, 22988-4, 70422-4, 89253-7, 54862-9 #### [facility] CLIA [id number] [address] [place] [address] [place] Protein [Mass/Vol] 7.2 g/dL Normal 6.3-8.0 [facility] Comment on above: Order Comment: Speci men Type: BLOOD SPECIMEN Ordering Facility: [facility] Address: [address] [place] [address] Performed By: #### 1 6570-4, 06085-0, 35260-9, 60140-5, 35777-5, 51747-3, 43872-8, 87622-7 #### [facility] CLIA [id number] [address] [place] [address] [place] Sodium [Moles/Vol] 142 mmol/L Normal 136-144 [facility] Comment on above: Order Comment: Speci men Type: BLOOD SPECIMEN Ordering Facility: [facility] Address: [address] [place] [address] Performed By: #### 1 6570-4, 43937-2, 67532-0, 39973-7, 00978-7, 92941-0, 93306-9, 42775-1 #### [facility] CLIA [id number] [address] [place] [address] [place] Urea nitrogen [Mass/Vol] 8 mg/dL Normal 7-21 [facility] Comment on above: Order Comment: Speci men Type: BLOOD SPECIMEN Ordering Facility: [facility] Address: [address] [place] [address] Performed By: #### 1 6570-4, 91139-0, 21333-0, 00757-3, 14369-3, 81521-7, 49285-8, 36846-5 #### [facility] CLIA [id number] [address] [place] [address] [place] Cyclic citrullinated peptide IgG Qnon 01-25-2022 CCP ANTIBODY IGG QUALITATIVE Negative Normal Negative [facility] Comment on above: Order Comment: Speci men Type: BLOOD SPECIMEN Ordering Facility: [facility] Address: [address] [place] [address] Performed By: #### 1 6570-4, 02051-4, 36285-8, 83011-5, 15491-6, 65693-5, 43960-5, 54772-6 #### [facility] CLIA [id number] [address] [place] [address] [place] Jo1 Ab Ser-aCncon 2021 Yuly-1 extractable nuclear Ab Qn (S) <0.2 Normal <1.0 [facility] Comment on above: Order Comment: Speci men Type: BLOOD SPECIMEN Ordering Facility: [facility] Address: [address] [place] [address] Performed By: #### 1 6570-4, 89050-1, 68094-8, 79235-2, 85614-4, 23967-5, 65341-5, 12602-1 #### [facility] CLIA [id number] [address] [place] [address] [place] RRTS Ab Ser-aCncon 2021 Ribonucleoprotein extractable nuclear Ab Qn (S) <0.2 Normal <1.0 [facility] Comment on above: Order Comment: Speci men Type: BLOOD SPECIMEN Ordering Facility: [facility] Address: [address] [place] [address] Performed By: #### 1 6570-4, 07747-6, 26537-0, 11199-0, 06665-0, 00130-0, 02371-5, 97589-2 #### [facility] CLIA [id number] [address] [place] [address] [place] SM IgG Ser-aCncon 2021 Cota extractable nuclear IgG Qn (S) <0.2 Normal <1.0 [facility] Comment on above: Order Comment: Speci men Type: BLOOD SPECIMEN Ordering Facility: [facility] Address: [address] [place], [place] [phone] Performed By: #### 1 6570-4, 47158-7, 79317-8, 09131-5, 72624-5, 94557-5, 15212-1, 45616-1 #### [facility] CLIA [id number] [address] [place] [address] [place] SS-A Ab Ser-aCncon 01-25 Sjogrens syndrome-A extractable nuclear Ab Qn (S) <0.2 Normal <1.0 [facility] Comment on above: Order Comment: Speci men Type: BLOOD SPECIMEN Ordering Facility: [facility] Address: [address] [place] [address] Result Comment: Test Methodology: Multiplex flow immunoassay. Performed By: #### 1 6570-4, 03962-9, 59820-3, 06197-5, 01099-7, 36285-8, 34288-4, 19607-0 #### [facility] CLIA [id number] [address] [place] [address] JASON SS-B Ab Ser-aCncon 01-25 Sjogrens syndrome-B extractable nuclear Ab Qn (S) <0.2 Normal <1.0 [facility] Comment on above: Order Comment: Speci men Type: BLOOD SPECIMEN Ordering Facility: [facility] Address: [address] [place] [address] Result Comment: Anti -SSB (anti-La) antibody is used as an aid in diagnosis of a variety of systemic autoimmune diseases, especially for Sjogren's syndrome and systemic lupus erythematosus. Clinical correlation is required. Test Methodology: Multiplex flow immunoassay. Performed By: #### 1 6570-4, 40833-1, 10186-6, 07185-0, 35334-3, 02266-6, 69803-7, 85323-9 #### [facility] CLIA [id number] [address] [place] [address] [place] ESR Westergren method (Bld) [Velocity]on 01-25-2022 ESR (Bld) [Velocity] 2 mm/h 0 - 20 mm/hr [facility] ESR (Bld) [Velocity] 2 mm/h Normal 0-20 [facility] Comment on above: Order Comment: Speci men Type: BLOOD SPECIMEN Ordering Facility: [facility] Address: [address] [place] [address] Performed By: #### 1 6570-4, 27347-0, 13708-5, 22472-2, 02189-3, 36232-9, 71367-2, 31271-7 #### [facility] CLIA [id number] [address] [place] [address] [place] HBV core Ab Ser Qlon 022 HBV core Ab Ql (S) Negative Normal Negative [facility] Comment on above: Order Comment: Speci men Type: BLOOD SPECIMEN Ordering Facility: [facility] Address: [address] [place] [address] Result Comment: No e vidence of current or past infection with Hepatitis B virus. Should recent infection be suspected, repeat testing may be considered 3-4 weeks after this draw. Performed By: #### 1 6570-4, 61246-5, 23693-3, 75804-4, 32984-5, 01661-7, 34563-6, 38833-3 #### [facility] CLIA [id number] [address] [place] [address] [place] HBV surface Ab IA Ql (S)on 0 01-25-2022 HBV surface Ag Ql (S) Negative Normal Negative [facility] Comment on above: Order Comment: Speci men Type: BLOOD SPECIMEN Ordering Facility: [facility] Address: [address] [place] [address] Performed By: #### 1 6570-4, 26146-9, 58035-9, 00119-4, 82424-0, 02938-9, 02478-0, 50949-5 #### [facility] CLIA [id number] [address] [place] [address] [place] HBV surface Ab Ser Qlon 05- HBV surface Ab Ql (S) Negative Normal Negative [facility] Comment on above: Order Comment: Jose Carlos oseguera Type: BLOOD SPECIMEN Ordering Facility: [facility] Address: [address] [place] [address] Result Comment: No e vidence of current or past infection with Hepatitis B virus. Should recent infection be suspected, repeat testing may be considered 3-4 weeks after this draw. Performed By: #### 1 6570-4, 15196-6, 15951-3, 86236-5, 01490-7, 57506-4, 80400-2, 66147-5 #### [facility] CLIA [id number] [address] [place] [address] [place] HCV Ab Ser Qlon 01-25-2022 HCV Ab Ql (S) Negative Normal Negative [facility] Comment on above: Order Comment: Jose Carlos oseguera Type: BLOOD SPECIMEN Ordering Facility: [facility] Address: [address] [place] [address] Result Comment: The result suggests no evidence of active infection with Hepatitis C virus. Should recent infection be suspected, repeat testing may be considered 4-6 weeks after this draw. Performed By: #### 1 6570-4, 29428-6, 01715-6, 36287-4, 65762-4, 07874-5, 80025-0, 92581-0 #### [facility] CLIA [id number] [address] [place] [address] [place] Yuly-1 extractable nuclear Ab Qn (S)on 01-25-2022 YULY 1 ANTIBODY QUAL Negative Normal Negative [facility] Comment on above: Order Comment: Jose Carlos oseguera Type: BLOOD SPECIMEN Ordering Facility: [facility] Address: [address] [place] [address] Result Comment: Anti -YULY-1 antibody is used as an aid in diagnosis of polymyositis and dermatomyositis especially with pulmonary involvement. A negative result cannot rule out polymyositis or dermatomyositis. Clinical correlation is required. Test Methodology: Multiplex flow immunoassay. Performed By: #### 1 6570-4, 82717-5, 04945-4, 61400-3, 02833-4, 63292-5, 65427-2, 48097-0 #### [facility] CLIA [id number] [address] [place] [address] [place] Nuclear Ab IA Ql (S)on 01-25 ARMANI BY EIA, QUAL Negative Normal Negative [facility] Comment on above: Order Comment: Jose Carlos oseguera Type: BLOOD SPECIMEN Ordering Facility: [facility] Address: [address] [place] [address] Result Comment: The qualitative antinuclear antibody screen test performed using enzyme immunoassay including the following antigens: dsDNA, histones, SS-A, SS-B, Sm, Sm/RRTS, Scl-70, Yuly-1, and centromeric antigens. Performed By: #### 1 6570-4, 42720-5, 15099-8, 00646-0, 39632-0, 93221-3, 78245-8, 68841-1 #### [facility] CLIA [id number] [address] [place] [address] [place] RHEUMATOID FACTOR BLon 01-25 Rheumatoid factor Qn [IU]/mL <16 IU/mL [facility] Rheumatoid factor Qn [IU]/mL Normal <16 [facility] Comment on above: Order Comment: Jose Carlos oseguera Type: BLOOD SPECIMEN Ordering Facility: [facility] Address: [address] [place] [address] Performed By: #### 1 6570-4, 94671-8, 65020-4, 78705-5, 36771-9, 26401-7, 68428-7, 56455-1 #### [facility] CLIA [id number] [address] [place] [address] [place] Ribonucleoprotein extractabl e nuclear Ab Qn (S)on 01-25-2022 ANTI-RRTS QUAL Negative [facility] Comment on above: Order Comment: Speci men Type: BLOOD SPECIMEN Ordering Facility: [facility] Address: [address] [place] [address] Performed By: #### 1 6570-4, 12098-2, 20633-9, 59056-8, 64164-5, 33610-2, 13534-6, 67763-8 #### [facility] CLIA [id number] [address] [place] [address] [place] RIBOSOMAL RRTS QUAL Negative Normal Negative [facility] Comment on above: Order Comment: Horacioi [facility] Type: BLOOD SPECIMEN Ordering Facility: [facility] Address: [address] [place] [address] Result Comment: Anti -Ribosomal RNA (Ribosomal P) antibody is used as an aid in diagnosis of systemic autoimmune diseases especially systemic lupus erythematosus and mixed connective tissue disease. Cross-reactivity with Anti-cota antibody is not uncommon. Clinical correlation is required. Test Methodology: Multiplex flow immunoassay. Performed By: #### 1 6570-4, 65744-9, 51949-2, 05687-7, 07780-8, 41247-9, 51226-5, 12194-9 #### [facility] CLIA [id number] [address] [place] [address] [place] SCL-70 extractable nuclear I gG IA Qn (S)on 01-25-2022 SCLERODERMA AB QUAL Negative Normal Negative [facility] Comment on above: Order Comment: Horacioi men Type: BLOOD SPECIMEN Ordering Facility: [facility] Address: [address] [place] [address] Performed By: #### 1 6570-4, 92639-5, 23416-3, 19473-0, 57694-4, 05467-6, 67647-7, 16270-7 #### [facility] CLIA [id number] [address] [place] [address] [place] SCLERODERMA IGG AB <0.2 Normal <1.0 [facility] Comment on above: Order Comment: Speci men Type: BLOOD SPECIMEN Ordering Facility: [facility] Address: [address] [place] [address] Result Comment: Scl- 70/Scleroderma antibody test is used as an aid in diagnosis of systemic sclerosis especially the diffuse cutaneous form. A negative result cannot rule out systemic sclerosis. The final interpretation should consider clinical picture and other test results such as anti-centromere antibody. Test Methodology: Multiplex flow immunoassay. Performed By: #### 1 6570-4, 86820-1, 47478-3, 68144-3, 13306-4, 73507-3, 17779-0, 26209-4 #### [facility] CLIA [id number] [address] [place] [address] [place] Sjogrens syndrome-A extracta ble nuclear Ab Qn (S)on 01-25-2022 SSA ANTIBODY QUAL Negative Normal Negative [facility] Comment on above: Order Comment: Speci men Type: BLOOD SPECIMEN Ordering Facility: [facility] Address: [address] [place] [address] Performed By: #### 1 6570-4, 33820-3, 75253-0, 24261-4, 07167-0, 09446-0, 33287-2, 10802-2 #### [facility] CLIA [id number] [address] [place] [address] [place] Sjogrens syndrome-B extracta ble nuclear Ab Qn (S)on 01-25-2022 SSB ANTIBODY QUAL Negative Normal Negative [facility] Comment on above: Order Comment: Speci men Type: BLOOD SPECIMEN Ordering Facility: [facility] Address: [address] [place] [address] Performed By: #### 1 6570-4, 59439-4, 85073-6, 84264-3, 77429-3, 87452-0, 66392-3, 15556-2 #### [facility] CLIA [id number] [address] [place] [address] [place] Cota extractable nuclear Ig G Qn (S)on 01-25-2022 SM ANTIBODY QUAL Negative Normal Negative [facility] Comment on above: Order Comment: Jose Carlos oseguera Type: BLOOD SPECIMEN Ordering Facility: [facility] Address: [address] [place] [address] Result Comment: Anti -Sm (Cota) antibody is used as an aid in diagnosis of systemic lupus erythematosus and its presence is associated with renal disease. A negative result cannot rule out systemic lupus erythematosus. Clinical correlation is required. Test Methodology: Multiplex flow immunoassay. Performed By: #### 1 6570-4, 64720-0, 17816-5, 15300-7, 86042-8, 17030-9, 35000-8, 90530-6 #### [facility] CLIA [id number] [address] [place] [address] [place] cCP IgG SerPl-aCncon 022 Cyclic citrullinated peptide IgG Qn <15 Normal <20 [facility] Comment on above: Order Comment: Jose Carlos oseguera Type: BLOOD SPECIMEN Ordering Facility: [facility] Address: [address] [place] [address] Performed By: #### 1 6570-4, 55352-9, 66744-9, 13426-3, 01934-2, 67546-2, 23682-2, 11991-0 #### [facility] CLIA [id number] [address] [place] [address] [place] XR ankle LT min 3V*on 2021 XR ankle LT min 3V* [facility] [employer] Other XR ankle LT min 3V* [facility] [employer] Other XR ankle LT min 3V* [address] [place] [address] [employer] Other XR ankle LT min 3V* [place] [address] [facility] Other XR ankle LT min 3V* XRay Report Nort [employer] Other XR ankle LT min 3V* Signed [facility] Other XR ankle LT min 3V* Patient: Madyson Schmid MR#: [id number] [facility] Other XR ankle LT min 3V* : 2000 Acct:[id number] [facility] Other XR ankle LT min 3V* Age/Sex: 20 / F ADM Date: 10/10/21 [facility] Other XR ankle LT min 3V* Loc: XDUCLY Room: pe: [facility] CLI [facility] [facility] Other XR ankle LT min 3V* Attending Dr: Christina GONZALEZ [facility] Other XR ankle LT min 3V* Ordering Provider: CARLOS Santos [facility] Other XR ankle LT min 3V* Date of Service: 10/10/21 [facility] Other XR ankle LT min 3V* XR/XR ankle LT min 3V*: Acute left ankle pain [facility] Other XR ankle LT min 3V* Copies to: CARLOS Beckman [facility] Other XR ankle LT min 3V* Left ankle 10/10/2021. [facility] Other XR ankle LT min 3V* CLINICAL DATA: Left ankle pain after twisting injury. [facility] Other XR ankle LT min 3V* FINDINGS: 3 views of the left ankle were obtained. [facility] Other XR ankle LT min 3V* No acute fracture or dislocation is identified. No other bony abnormality is seen. Anterolateral [facility] Other XR ankle LT min 3V* soft tissue swelling is noted. [facility] Other XR ankle LT min 3V* X R/XR ankle LT min 3V* [facility] Other XR ankle LT min 3V* IMPRESSION: Soft tis cody swelling. No acute bony abnormality. [facility] Other XR ankle LT min 3V* Impression dictated by: Erick Cueto Jr., M.D.10/10/2021 4:24 PM [facility] Other XR ankle LT min 3V* Dictation Location: [address] [employer] Other XR ankle LT min 3V* Transcribed By: MIRELLA 10/10/21 [facility] Other XR ankle LT min 3V* Dictated By: Erick Cueto Jr, MD 10/10/21 [facility] [employer] [employer] Other XR ankle LT min 3V* Signed By: [facility] Other XR ankle LT min 3V* 10/10/21 1624 No rt [employer] Other Vital Signs Date Time Vital Sign Value Performing Clinician Facility 11-10-2024 09:08-0500 Body mass index (BMI) [Ratio] 38.94 kg/m2 Osei Helena DO Work Phone: [facility] 11-10-2024 09:08-0500 Body weight 106.14 kg Osei Helena DO Work Phone: [facility] 11-10-2024 09:08-0500 Diastolic blood pressure 70 mm[Hg] Osei Helena DO Work Phone: [facility] 11-10-2024 09:08-0500 Systolic blood pressure 130 mm[Hg] Osei Helena DO Work Phone: [facility] 10-29-2024 16:23-0500 Body mass index (BMI) [Ratio] 38.27 kg/m2 Osei Helena DO Work Phone: [facility] 10-29-2024 16:23-0500 Body weight 104.33 kg Osei Helena DO Work Phone: [facility] 10-29-2024 16:23-0500 Diastolic blood pressure 68 mm[Hg] Osei Helean DO Work Phone: [facility] 10-29-2024 16:23-0500 Systolic blood pressure 112 mm[Hg] Osei Helena DO Work Phone: [facility] 10-15-2024 16:11-0500 Body mass index (BMI) [Ratio] 38.94 kg/m2 Osei Helena DO Work Phone: [facility] 10-15-2024 16:11-0500 Body weight 106.14 kg Osei Helena DO Work Phone: [facility] 10-15-2024 16:11-0500 Diastolic blood pressure 64 mm[Hg] Osei Helena DO Work Phone: [facility] 10-15-2024 16:11-0500 Systolic blood pressure 118 mm[Hg] Osei Helena DO Work Phone: [facility] 10-02-2024 11:43-0500 Body mass index (BMI) [Ratio] 38.44 kg/m2 Osei Helena DO Work Phone: [facility] 10-02-2024 11:43-0500 Body weight 104.78 kg Osei Helena DO Work Phone: [facility] 10-02-2024 11:43-0500 Diastolic blood pressure 72 mm[Hg] Osei Helena DO Work Phone: [facility] 10-02-2024 11:43-0500 Systolic blood pressure 118 mm[Hg] Osei Helena DO Work Phone: [facility] 09-18-2024 10:52-0500 Body mass index (BMI) [Ratio] 38.74 kg/m2 Osei Helena DO Work Phone: [facility] 09-18-2024 10:52-0500 Body weight 105.6 kg Osei Helena DO Work Phone: [facility] 09-18-2024 10:52-0500 Diastolic blood pressure 68 mm[Hg] Osei Helena DO Work Phone: [facility] 09-18-2024 10:52-0500 Systolic blood pressure 118 mm[Hg] Osei Helena DO Work Phone: [facility] 09-03-2024 15:21-0500 Body mass index (BMI) [Ratio] 37.44 kg/m2 Osei Helena DO Work Phone: [facility] 09-03-2024 15:21-0500 Body weight 102.06 kg Osei Helena DO Work Phone: [facility] 09-03-2024 15:21-0500 Diastolic blood pressure 68 mm[Hg] Osei Helena DO Work Phone: [facility] 09-03-2024 15:21-0500 Systolic blood pressure 120 mm[Hg] Osei Helena DO Work Phone: [facility] 08-27-2024 13:08-0500 Body height 165.1 cm Camilla Hemmer PA Work Phone: [facility] 08-27-2024 13:08-0500 Body mass index (BMI) [Ratio] 38.11 kg/m2 Camilla Hemmer PA Work Phone: [facility] 08-27-2024 13:08-0500 Body weight 103.87 kg Camilla Hemmer PA Work Phone: [facility] 08-27-2024 13:08-0500 Diastolic blood pressure 72 mm[Hg] Camilla Hemmer PA Work Phone: [facility] 08-27-2024 13:08-0500 Heart rate 92 /min Camilla Hemmer PA Work Phone: [facility] 08-27-2024 13:08-0500 Respiratory rate 16 /min Camilla Hemmer PA Work Phone: [facility] 08-27-2024 13:08-0500 SaO2% (BldA) [Mass fraction] 98 % Camilla Garcia PA Work Phone: [facility] 08-27-2024 13:08-0500 Systolic blood pressure 118 mm[Hg] Camilla Garcia PA Work Phone: [facility] 08-13-2024 09:22-0500 Body height 165.1 cm Hammad Hatch MD Work Phone: [facility] 08-13-2024 09:22-0500 Body mass index (BMI) [Ratio] 36.91 kg/m2 Hammad Hatch MD Work Phone: [facility] 08-13-2024 09:22-0500 Body weight 100.61 kg Hammad Hatch MD Work Phone: [facility] 08-05-2024 09:05-0500 Body mass index (BMI) [Ratio] 36.44 kg/m2 Flori Atlanta PA Work Phone: [facility] 08-05-2024 09:05-0500 Body weight 99.34 kg Flori Atlanta PA Work Phone: [facility] 08-05-2024 09:05-0500 Diastolic blood pressure 68 mm[Hg] Flori Louise PA Work Phone: [facility] 08-05-2024 09:05-0500 Systolic blood pressure 110 mm[Hg] Flori Louise PA Work Phone: [facility] 07-03-2024 14:41-0400 Body mass index (BMI) [Ratio] 35.65 kg/m2 Flori Atlanta PA Work Phone: [facility] 07-03-2024 14:41-0400 Body weight 97.18 kg Flori Louise PA Work Phone: [facility] 07-03-2024 14:41-0400 Diastolic blood pressure 64 mm[Hg] Flori Atlanta PA Work Phone: [facility] 07-03-2024 14:41-0400 Systolic blood pressure 116 mm[Hg] Flori Gil PA Work Phone: [facility] 06-04-2024 15:53-0400 Body mass index (BMI) [Ratio] 35.36 kg/m2 Osei Helena DO Work Phone: [facility] 06-04-2024 15:53-0400 Body weight 96.39 kg Osei Helena DO Work Phone: [facility] 06-04-2024 15:53-0400 Diastolic blood pressure 70 mm[Hg] Osei Helena DO Work Phone: [facility] 06-04-2024 15:53-0400 Systolic blood pressure 126 mm[Hg] Osei Helena DO Work Phone: [facility] 05-23-2024 09:35-0400 Body mass index (BMI) [Ratio] 35.01 kg/m2 Nom [facility] 05-23-2024 09:35-0400 Body weight 95.44 kg [facility] Nurse [facility] 05-20-2024 09:37-0400 Body height 165.1 cm Camilla Hemmer PA Work Phone: [facility] 05-20-2024 09:37-0400 Body mass index (BMI) [Ratio] 34.98 kg/m2 Camilla Hemmer PA Work Phone: [facility] 05-20-2024 09:37-0400 Body weight 95.35 kg Camilla Hemmer PA Work Phone: [facility] 05-20-2024 09:37-0400 Diastolic blood pressure 76 mm[Hg] Camilla Hemmer PA Work Phone: [facility] 05-20-2024 09:37-0400 Heart rate 87 /min Camilla Hemmer PA Work Phone: [facility] 05-20-2024 09:37-0400 Respiratory rate 16 /min Camilla Hemmer PA Work Phone: [facility] 05-20-2024 09:37-0400 SaO2% (BldA) [Mass fraction] 98 % Camilla Garcia PA Work Phone: [facility] 05-20-2024 09:37-0400 Systolic blood pressure 108 mm[Hg] Camilla Radha PA Work Phone: [facility] 11-30-2023 09:33-0500 Body height 165.1 cm Jyoti Gallowayur PA-C Work Phone: [facility] 11-30-2023 09:33-0500 Body weight 92.99 kg Jyoti Noble PA-C Work Phone: [facility] 11-30-2023 09:33-0500 Diastolic blood pressure 79 mm[Hg] Jyoti Noble PA-C Work Phone: [facility] 11-30-2023 09:33-0500 Heart rate 84 /min Jyoti Gallowayur PA-C Work Phone: [facility] 11-30-2023 09:33-0500 SaO2% (BldA) [Mass fraction] 96 % Jyoti Noble PA-C Work Phone: [facility] 11-30-2023 09:33-0500 Systolic blood pressure 118 mm[Hg] Jyoti Noble PA-C Work Phone: [facility] 06-13-2023 12:36-0400 Body height 165.1 cm Ibis Limer Work Phone: [facility] [employer] 600 DO Work Phone: 06-13-2023 12:36-0400 Body mass index (BMI) [Ratio] 33.28 kg/m2 Ibis Ellis Myra Work Phone: [facility] [employer] 600 DO Work Phone: 06-13-2023 12:36-0400 Body surface area Derived from formula 1.98 m2 Ibis Ellis Myra Work Phone: [facility] [employer] 600 DO Work Phone: 06-13-2023 12:36-0400 Body weight 90.72 kg [facility]bis A Myra [facility] Work Phone: 06-13-2023 12:36-0400 Diastolic blood pressure 80 mm[Hg] Ibis A Myra [facility] Work Phone: 06-13-2023 12:36-0400 Heart rate 76 /min Ibis A Myra [facility] Work Phone: 06-13-2023 12:36-0400 Systolic blood pressure 116 mm[Hg] Ibis A Myra [facility] Work Phone: 06-08-2023 21:50-0400 Diastolic blood pressure 59 mm[Hg] [employer]NAGER-C Ibis Myra Work Phone: [facility] 06-08-2023 21:50-0400 Heart rate 82 /min [employer] PROGRAM MANAGER-C Ibis Myra Work Phone: [facility] 06-08-2023 21:50-0400 Respiratory rate 18 /min [employer] PROGRAM MANAGER-C Ibis Myra Work Phone: [facility] 06-08-2023 21:50-0400 SaO2% (BldA) [Mass fraction] 99 % [employer] MANAGER-C Ibis Myra Work Phone: [facility] 06-08-2023 21:50-0400 Systolic blood pressure 115 mm[Hg] WE[employer] PROGRAM MANAGER-C Ibis Myra Work Phone: [facility] 06-08-2023 16:35-0400 Body height 165.1 cm [employer] PROGRAM MANAGER-C Ibis Myra Work Phone: [facility] 06-08-2023 16:35-0400 Body temperature 97.8 [degF] WE[employer]NESS PROGRAM MANAGER-C Ibis Myra Work Phone: [facility] 06-08-2023 16:35-0400 Body weight 91.6 kg [employer]NESS PROGRAM MANAGER-C Ibis Myar Work Phone: [facility] 12-28-2022 15:00-0400 Body weight 89.36 kg Irvin Hanna MD Work Phone: [facility] 12-28-2022 15:00-0400 Diastolic blood pressure 86 mm[Hg] Irvin Hanna MD Work Phone: [facility] 12-28-2022 15:00-0400 Heart rate 79 /min Irvin Hanna MD Work Phone: [facility] 12-28-2022 15:00-0400 Respiratory rate 16 /min Irvin Hanna MD Work Phone: [facility] 12-28-2022 15:00-0400 Systolic blood pressure 119 mm[Hg] Irvin Hanna MD Work Phone: [facility] 10-13-2022 09:35-0500 Body height 165.1 cm Ibis Rhonda Myra Work Phone: [facility] 320 DO Work Phone: 10-13-2022 09:35-0500 Body mass index (BMI) [Ratio] 33.45 kg/m2 Ibis A Myra Work Phone: [facility] 320 DO Work Phone: 10-13-2022 09:35-0500 Body surface area Derived from formula 1.98 m2 Ibis A Myra Work Phone: [facility] 320 DO Work Phone: 10-13-2022 09:35-0500 Body weight 91.17 kg Ibis Rhonda Myra Work Phone: [facility] 320 DO Work Phone: 10-13-2022 09:35-0500 Diastolic blood pressure 70 mm[Hg] Ibis A Myra Work Phone: [facility] 320 DO Work Phone: 10-13-2022 09:35-0500 Heart rate 76 /min Ibis A Myra Work Phone: [facility] 320 DO Work Phone: 10-13-2022 09:35-0500 Systolic blood pressure 102 mm[Hg] Ibis A Myra Work Phone: [facility] 320 DO Work Phone: 09-11-2022 09:58-0500 Diastolic blood pressure 82 mm[Hg] Ibis A Myra Work Phone: [facility] 250 DO Work Phone: 09-11-2022 09:58-0500 Diastolic blood pressure 80 mm[Hg] Ibis A Myra Work Phone: [facility] 250 DO Work Phone: 09-11-2022 09:58-0500 Systolic blood pressure 112 mm[Hg] Ibis A Myra Work Phone: [facility] 250 DO Work Phone: 09-11-2022 09:58-0500 Systolic blood pressure 108 mm[Hg] Ibis A Myra Work Phone: [facility] 250 DO Work Phone: 09-11-2022 08:57-0500 Body height 165.1 cm Ibis A Myra Work Phone: [facility] 250 DO Work Phone: 09-11-2022 08:57-0500 Body mass index (BMI) [Ratio] 32.95 kg/m2 Ibis A Myra Work Phone: [facility] 250 DO Work Phone: 09-11-2022 08:57-0500 Body surface area Derived from formula 1.97 m2 Ibis A Myra Work Phone: [facility] 250 DO Work Phone: 09-11-2022 08:57-0500 Body weight 89.81 kg Ibis A Myra Work Phone: [facility] 250 DO Work Phone: 09-11-2022 08:57-0500 Diastolic blood pressure 68 mm[Hg] Ibis A Myra Work Phone: [facility] 250 DO Work Phone: 09-11-2022 08:57-0500 Heart rate 74 /min Ibis A Myra Work Phone: [facility] 250 DO Work Phone: 09-11-2022 08:57-0500 Systolic blood pressure 102 mm[Hg] Ibis A Myra Work Phone: [facility] 250 DO Work Phone: 07-31-2022 10:14-0500 Body weight 89.81 kg Irvin Hanna MD Work Phone: [facility] 07-31-2022 10:14-0500 Diastolic blood pressure 71 mm[Hg] Irvin Hanna MD Work Phone: [facility] 07-31-2022 10:14-0500 Heart rate 92 /min Irvin Hanna MD Work Phone: [facility] 07-31-2022 10:14-0500 Systolic blood pressure 109 mm[Hg] Irvin Hanna MD Work Phone: [facility] 07-21-2022 07:27-0400 Body height 165.1 cm Ibis A Myra Work Phone: [facility] 320 DO Work Phone: 07-21-2022 07:27-0400 Body mass index (BMI) [Ratio] 33.45 kg/m2 Ibis A Myra Work Phone: [facility] 320 DO Work Phone: 07-21-2022 07:27-0400 Body surface area Derived from formula 1.98 m2 Ibis A Myra Work Phone: [facility] 320 DO Work Phone: 07-21-2022 07:27-0400 Body weight 91.17 kg Ibis A Myra Work Phone: [facility] 320 DO Work Phone: 07-21-2022 07:27-0400 Diastolic blood pressure 72 mm[Hg] Ibis A Myra Work Phone: [facility] 320 DO Work Phone: 07-21-2022 07:27-0400 Heart rate 64 /min Ibis A Myra Work Phone: [facility] [facility] DO Work Phone: 07-21-2022 07:27-0400 Systolic blood pressure 106 mm[Hg] Ibis A Myra Work Phone: [facility] 320 DO Work Phone: 07-10-2022 10:45-0400 Body height 165.1 cm Ibis A Myra Work Phone: [facility] 250 DO Work Phone: 07-10-2022 10:45-0400 Body mass index (BMI) [Ratio] 32.95 kg/m2 Ibis A Myra Work Phone: [facility] 250 DO Work Phone: 07-10-2022 10:45-0400 Body surface area Derived from formula 1.97 m2 Ibis A Myra Work Phone: [facility] 250 DO Work Phone: 07-10-2022 10:45-0400 Body weight 89.81 kg Ibis A Myra Work Phone: [facility] 250 DO Work Phone: 07-10-2022 10:45-0400 Diastolic blood pressure 70 mm[Hg] Ibis A Myra Work Phone: [facility] 250 DO Work Phone: 07-10-2022 10:45-0400 Heart rate 76 /min Ibis A Myra Work Phone: [facility] 250 DO Work Phone: 07-10-2022 10:45-0400 Systolic blood pressure 104 mm[Hg] Ibis A Myra Work Phone: [facility] 250 DO Work Phone: 06-01-2022 11:36-0400 Body height 165.1 cm WELLNESS PROGRAM MANAGER-C Ibis Myra Work Phone: [facility] 06-01-2022 11:36-0400 Body temperature 100 [degF] WELLNESS PROGRAM MANAGER-C Ibis Myra Work Phone: [facility] 06-01-2022 11:36-0400 Body weight 88.4 kg WELLNESS PROGRAM MANAGER-C Ibis Myra Work Phone: [facility] 06-01-2022 11:36-0400 Diastolic blood pressure 68 mm[Hg] WELLNESS PROGRAM MANAGER-C Ibis Myra Work Phone: [facility] 06-01-2022 11:36-0400 Heart rate 99 /min WELLNESS PROGRAM MANAGER-C Ibis Myra Work Phone: [facility] 06-01-2022 11:36-0400 Respiratory rate 18 /min WELLNESS PROGRAM MANAGER-C Ibis Myra Work Phone: [facility] 06-01-2022 11:36-0400 SaO2% (BldA) [Mass fraction] 97 % WELLNESS PROGRAM MANAGER-C Ibis Myra Work Phone: [facility] 06-01-2022 11:36-0400 Systolic blood pressure 121 mm[Hg] WELLNESS PROGRAM MANAGER-C Ibis Myra Work Phone: [facility] 05-18-2022 09:42-0400 Body height 165.1 cm Ibis A Myra Work Phone: [facility] 250 DO Work Phone: 05-18-2022 09:42-0400 Body mass index (BMI) [Ratio] 31.95 kg/m2 Ibis A Myra Work Phone: [facility] 250 DO Work Phone: 05-18-2022 09:42-0400 Body surface area Derived from formula 1.94 m2 Ibis A Myra Work Phone: [facility] 250 DO Work Phone: 05-18-2022 09:42-0400 Body weight 87.09 kg Ibis A Myra Work Phone: [facility] 250 DO Work Phone: 05-18-2022 09:42-0400 Diastolic blood pressure 74 mm[Hg] Ibis A Myra Work Phone: [facility] 250 DO Work Phone: 05-18-2022 09:42-0400 Heart rate 72 /min Ibis A Myra Work Phone: [facility] 250 DO Work Phone: 05-18-2022 09:42-0400 Systolic blood pressure 102 mm[Hg] Ibis A Myra Work Phone: [facility] 250 DO Work Phone: 03-23-2022 09:11-0400 Diastolic blood pressure 80 mm[Hg] Ibis A Myra Work Phone: [facility] 250 DO Work Phone: 03-23-2022 09:11-0400 Systolic blood pressure 110 mm[Hg] Ibis A Myra Work Phone: [facility] 250 DO Work Phone: 03-23-2022 09:06-0400 Body height 166.37 cm Ibis Ellis Myra Work Phone: [facility] 250 DO Work Phone: 03-23-2022 09:06-0400 Body mass index (BMI) [Ratio] 31.3 kg/m2 Ibis A Myra Work Phone: [facility] 250 DO Work Phone: 03-23-2022 09:06-0400 Body surface area Derived from formula 1.95 m2 Ibis Rhonda Myra Work Phone: [facility] 250 DO Work Phone: 03-23-2022 09:06-0400 Body weight 86.64 kg Ibis A Myra Work Phone: [facility] 250 DO Work Phone: 03-23-2022 09:06-0400 Diastolic blood pressure 76 mm[Hg] Ibis A Myra Work Phone: [facility] 250 DO Work Phone: 03-23-2022 09:06-0400 Heart rate 66 /min Ibis Rhonda ArenasMyra Work Phone: [facility] 250 DO Work Phone: 03-23-2022 09:06-0400 Systolic blood pressure 118 mm[Hg] Ibis A Myra Work Phone: [facility] 250 DO Work Phone: 01-25-2022 08:16-0400 Body height 165.1 cm Irvin Hanna MD Work Phone: [facility] 01-25-2022 08:16-0400 Body weight 86.36 kg Irvin Hanna MD Work Phone: [facility] 01-25-2022 08:16-0400 Diastolic blood pressure 83 mm[Hg] Irvin Hanna MD Work Phone: [facility] 01-25-2022 08:16-0400 Heart rate 71 /min Irvin Hanna MD Work Phone: [facility] 01-25-2022 08:16-0400 Systolic blood pressure 116 mm[Hg] Irvin Hanna MD Work Phone: [facility] 01-10-2022 12:45-0400 Body height 165.1 cm Ok Mckeon Other [facility] Other 01-10-2022 12:45-0400 Body mass index (BMI) [Ratio] 31.61 kg/m2 Ok Mckeon Other [facility] Other 01-10-2022 12:45-0400 Body temperature 97.8 [degF] Ok Mckeon Other [facility] Other 01-10-2022 12:45-0400 Body weight 86.18 kg Ok Mckeon Other [facility] Other 01-10-2022 12:45-0400 Diastolic blood pressure 80 mm[Hg] Ok Mckeon Other [facility] Other 01-10-2022 12:45-0400 SaO2% (BldA) [Mass fraction] 96 % Ok Mckeon Other [facility] Other 01-10-2022 12:45-0400 Systolic blood pressure 120 mm[Hg] Ok Mckeon Other [facility] Other 10-10-2021 15:50-0500 Body height 165.1 cm Christina Pearce Other [facility] Other 10-10-2021 15:50-0500 Body mass index (BMI) [Ratio] 31.61 kg/m2 Christina Pearce Other [facility] Other 10-10-2021 15:50-0500 Body temperature 97 [degF] Christina Pearce Other [facility] Other 10-10-2021 15:50-0500 Body weight 86.18 kg Christina Pearce Other [facility] Other 10-10-2021 15:50-0500 Diastolic blood pressure 76 mm[Hg] Christina Pearce Other [facility] Other 10-10-2021 15:50-0500 Respiratory rate 18 /min Christina Lambmond Other [facility] Other 10-10-2021 15:50-0500 SaO2% (BldA) [Mass fraction] 99 % Christina Pearce Other [facility] Other 10-10-2021 15:50-0500 Systolic blood pressure 123 mm[Hg] Christina Pearce Other [facility] Other Encounters Encounter Date Encounter Type Care [...] Start: 11-12-2024 End: 11-12-20[facility] Start: 11-10-2024 End: 11-10-2024 Bamboo [...] Jo RN Maternal- Medicine at [facility] Comment on above: Dichorionic diamniot ic twin in third trimester (Primary Dx) Start: 10-16-2024 End: 10-16-[address] [facility] Start: 10-15-2024 End: 10-15-2024 flow sheet [...] Start: 09-25-2024 End: 09-25-2024 ambulatory Osei Sidhuo [facility] Work Phone: Start: 09-25-2024 End: 09-25-2024 Departed Referred Osei Sidhuo DO Work Phone: [facility]-LAB [facility] Start: 09-25-2024 End: 09-25-2024 Clinisync Result Encounter Osei Helena DO Work Phone: [facility] Unsolicited Start: 09-25-2024 End: 09-25-2024 Clinisync Result Encounter Osei Helena DO Work Phone: [facility] External [facility] Unsolicited Start: 09-25-2024 End: 09-26-2024 Telephone encounter Osei Helena DO Work Phone: [facility] Start: 09-19-2024 End: 09-26-2024 Orders Only Chrissie Willis ANIMAL ASSISTED THERAPIST Maternal- Medicine at [facility] Comment on above: Dichorionic diamniot ic [...] Start: 09-02-2024 End: 09-02-2024 ambulatory JYOTI DICKEY Facility:[facility] Comment on above: POTS (postural ortho static [...] Kennedy RN M[facility]- [facility] at [facility] Start: 08-27-2024 End: 08-27-2024 Bamboo flowsheet [...] Green RN Maternal- Medicine at [facility] Comment on above: Dichorionic diamniot ic twin in second trimester (Primary Dx); POTS (postural orthostatic tachycardia syndrome); Asthma during ; 20 weeks gestation of Start: 08-13-2024 End: 08-13-2024 Office outpatient new 45 minutes Muna Lenz MD Work Phone: [facility]aternal- Medicine at [facility] Comment on above: Dichorionic diamniot ic twin in second trimester (Primary Dx); POTS (postural orthostatic tachycardia syndrome); Asthma during ; 20 weeks gestation of Start: 08-13-2024 End: 08-13-2024 ambulatory OSEI MALIK [facility] Start: 08-11-2024 End: 08-13-2024 Clinisync Result [...] Start: 07-24-2024 End: 07-24-2024 ambulatory Celeste Watson Facility:[facility] Start: 07-07-2024 End: 07-07-2024 Chart abstracting Hammad Hatch MD Work Phone: [facility]- Medicine at [facility] Start: 07-03-2024 End: 07-03-2024 flow sheet [...] Start: 07-02-2024 End: 07-02-2024 ambulatory Joie Seaman APRN.RESEARCH COMPLIANCE SPECIALIST Work Phone: Neurology Comment on above: POTS (postural ortho static tachycardia syndrome) (Primary Dx); Near syncope Start: 07-02-2024 End: 07-02-2024 Telemedicine consultation with patient Joie Seaman APRN.RESEARCH COMPLIANCE SPECIALIST Work Phone: Neurology Start: 06-10-2024 End: 06-11-2024 [...] Start: 04-12-2024 End: 04-12-2024 ambulatory Celeste Watson Facility:[facility] Start: 04-12-2024 End: 04-12-2024 Patient encounter procedure Celeste Watson [facility] Start: 03-25-2024 Patient encounter status Camilla TOLBERT Work Phone: [facility] Start: 03-25-2024 End: 03-25-2024 ambulatory JB MANDUJANO Not Available Start: 03-20-2024 End: 03-20-2024 ambulatory Jyoti Dickey PA-C Work Phone: Neurology Comment on above: POTS (postural ortho static tachycardia syndrome) (Primary Dx) Start: 03-20-2024 End: 03-20-2024 Telemedicine consultation with patient Jyoti Noble PA-C Work Phone: Neurology Start: 03-14-2024 End: 03-14-2024 ambulatory Celeste aWtson Facility:[facility] Start: 03-14-2024 End: 03-14-2024 Patient encounter procedure Celeste Shirley [facility] Start: 02-26-2024 End: 02-26-2024 ambulatory JB MANDUJANO Not Available Start: 01-22-2024 ambulatory FURNACE ROOM SUPERVISOR Krista L Mae Facil ity:[facility] Start: 01-01-2024 End: 01-01-2024 ambulatory CELESTE FIGUEROAKES Not Available Start: 12-21-2023 End: 12-21-2023 ambulatory OSEI MALIK Not Available Start: 12-11-2023 End: 12-11-2023 ambulatory FURNACE ROOM SUPERVISOR Krista L Mae Facility:[facility] Start: 12-11-2023 End: 12-11-2023 ambulatory CELESTE Nathan RINKES Not Available Start: 11-30-2023 End: 11-30-2023 ambulatory AURORA SANTIAGO Facility:[facility] Start: 11-30-2023 End: 11-30-2023 Patient encounter procedure Jyoti Dickey PA-C Work Phone: Neurology Comment on above: POTS (postural ortho static tachycardia syndrome) (Primary Dx) Start: 11-12-2023 End: 11-12-2023 Patient encounter procedure Autonomic 2 Neur Main [facility] Start: 11-12-2023 End: 11-12-2023 ambulatory AURORA SANTIAGO Neurology Comment on above: Procedure Start: 10-10-2023 End: 10-10-2023 ambulatory AURORA SANTIAGO Facility:[facility] Start: 07-24-2023 End: 07-24-2023 ambulatory Jocelin FELIX Facility:[facility] Start: 07-20-2023 Telephone encounter Arin Tinajero RN [facility] Comment on above: Referral Follow-up Start: 07-10-2023 End: 07-10-2023 ambulatory JOSE ARMANDO GREY Facility:[facility] Start: 07-10-2023 End: 07-10-2023 Office outpatient new 30 minutes Jose Armando Grey DO Work Phone: [facility] [place] Comment on above: Chronic pain of righ t knee (Primary Dx); Tendinopathy of gluteal region Start: 07-06-2023 Orders Only Jose Armando Grey DO Work Phone: Orthopaedics Comment on above: Right knee pain, uns pecified chronicity (Primary Dx) Start: 07-05-2023 End: 07-05-2023 ambulatory WELLNESS PROGRAM MANAGER-C Ibis Winter Myra Work Phone: [facility] Work Phone: Start: 07-05-2023 End: 07-05-2023 Patient encounter procedure WELLNESS PROGRAM MANAGER-C Ibis Myra Work Phone: [facility]-Flu Vaccine Start: 06-13-2023 Office outpatient vi sit 15 minutes Ibis Arenasncer Work Phone: -[facility] 600 DO Work Phone: Start: 06-13-2023 ambulatory Tabatha Cota Facility:1 [id number] Start: 06-08-2023 End: 06-08-2023 Emergency department patient visit WELLNESS PROGRAM MANAGER-C Ibis Myra Work Phone: [facility]-Emergency Room Work Phone: Start: 04-25-2023 End: 04-25-2023 ambulatory WELLNESS PROGRAM MANAGER-C Ibis Maggy Myra Work Phone: [facility] Work Phone: Start: 04-25-2023 End: 04-25-2023 Departed Referred WELLNESS PROGRAM MANAGER-C Ibis Myra Work Phone: [facility] [place] [address] Work Phone: Start: 03-14-2023 ambulatory CHAN MUÑIZ Fa cility:[facility] Start: 01-18-2023 End: 01-18-2023 ambulatory WELLNESS PROGRAM MANAGER-C Ibis Maggy Myra Work Phone: [facility] Work Phone: Start: 01-18-2023 End: 01-18-2023 Departed Referred WELLNESS PROGRAM MANAGER-C Ibis Myra Work Phone: [facility] [address] Work Phone: Start: 12-28-2022 End: 12-28-2022 Patient encounter procedure Irvin Hanna MD Work Phone: Rheumatology Comment on above: Pain and swelling of knee, right (Primary Dx); Joint stiffness Start: 10-31-2022 Chart Update Ibis Arenasn cer Work Phone: [facility] 250 DO Work Phone: Start: 10-16-[address] Melodie Alfonso ty: Start: 10-13-2022 Current tobacco non- user cad cap copd pv dm Ibis A Myra Work Phone: [facility] 320 DO Work Phone: Start: 10-13-[address] Annalee Pierre acility: Start: 09-11-2022 Office outpatient vi sit 15 minutes Ibis Ellis Myra Work Phone: [facility] 250 DO Work Phone: Start: 09-11-2022 Patient encounter procedure Ibis A Myra Work Phone: [facility] 250 DO Work Phone: Start: 09-11-[address] Melodie Alfonso ty: Start: 09-07-2022 Telephone encounter Ibis Ellis Myra Work Phone: [facility] 320 DO Work Phone: Start: 08-27-[address] Annalee Pierre acility: Start: 08-01-2022 AUDIT Ibis Ellis Spen cer Work Phone: [facility] 320 DO Work Phone: Start: 07-31-2022 EVENT EZEKIEL, Provider : HERIBERTO SERRANO FOLD SKIVER 1,[id number], Status: Pen, Time: 11:00 AM Ibis Arenasncer Work Phone: [facility] 250 DO Work Phone: Start: 07-31-[address] Annalee Pierre acility: Start: 07-31-2022 End: 07-31-2022 Patient encounter procedure Irvin Hanna MD Work Phone: Rheumatology Comment on above: Pain and swelling of knee, right (Primary Dx); Joint stiffness; Inflammatory arthritis Start: 07-26-2022 ambulatory IBIS RENTERIA Facilit y:[facility] Start: 07-21-2022 Current tobacco non- user cad cap copd pv dm Ibis Renteria Work Phone: [facility] 320 DO Work Phone: Start: 07-21-[address] Annalee Maza F acility: Start: 07-10-2022 Office outpatient vi sit 25 minutes Ibis Renteria Work Phone: [facility] 250 DO Work Phone: Start: 07-10-2022 Patient encounter procedure Ibis Renteria Work Phone: [facility] 250 DO Work Phone: Start: 07-10-[address] Melodie Greeni ty: Start: 06-15-2022 Telephone encounter Ibis Renteria Work Phone: [facility] 250 DO Work Phone: Start: 06-12-2022 End: 06-12-[address] Annalee Maza Facility:[id number] Start: 06-05-2022 Patient encounter procedure Ibis Renteria Work Phone: [id number] Work Phone: Start: 06-01-2022 End: 06-01-2022 Emergency department patient visit WELLNESS PROGRAM MANAGER-C Ibis Renteria Work Phone: [facility]-Emergency Room Start: 05-18-2022 Office outpatient vi sit 25 minutes Ibis A Myra Work Phone: [facility] 250 DO Work Phone: Start: 05-18-2022 Patient encounter procedure Ibis A Myra Work Phone: [facility] 250 DO Work Phone: Start: 05-08-2022 End: 05-08-2022 Patient encounter procedure WELLNESS PROGRAM MANAGER-C Ibis Myra Work Phone: [facility]-Respiratory Therapy Start: 05-03-2022 Result Review Ibis Rhonda Spen cer Work Phone: [facility] 250 DO Work Phone: Start: 05-03-2022 SURGNONUH, Provider: María Elena Freire, Status: Pen, Time: 10:00 AM Ibis Rhonda Myra Work Phone: [facility] 250 DO Work Phone: Start: 05-03-2022 End: 05-03-2022 Patient encounter procedure WELLNESS PROGRAM MANAGER-C Ibis Myra Work Phone: [facility] Start: 03-28-2022 EVENT EZEKIEL, Provider : HERIBERTO SINGH FOLD SKIVER 1,[id number], Status: Pen, Time: 8:00 AM Ibis Rhonda Myra Work Phone: [facility] 250 DO Work Phone: Start: 03-28-2022 Patient encounter procedure Ibis A Myra Work Phone: [facility] 250 DO Work Phone: Start: 03-26-2022 Chart Update Ibis A Spen cer Work Phone: [facility] 250 DO Work Phone: Start: 03-24-2022 End: 03-24-2022 Patient encounter procedure WELLNESS PROGRAM MANAGER-C Ibis Myra Work Phone: [facility]-Lab Main Adin Start: 03-23-2022 Office consultation new/estab patient 60 min Ibis A Myra Work Phone: [facility] 250 DO Work Phone: Start: 03-23-2022 Office outpatient ne w 45 minutes Ibis A Myra Work Phone: [facility] Work Phone: Start: 02-02-2022 Telephone encounter Irvin shannon MD Work Phone: Rheumatology Comment on above: Orders Start: 01-25-2022 End: 01-25-2022 Patient encounter procedure Irvin Hanna MD Work Phone: Rheumatology Comment on above: Pain and swelling of knee, right (Primary Dx); Joint stiffness Start: 01-10-2022 End: 01-10-2022 ambulatory Ok Mckeon Other [facility] Other Start: 01-10-2022 Office outpatient ne w 45 minutes Ok Mckeon [facility] Vascular Surgery Start: 10-10-2021 End: 10-10-2021 ambulatory Christina Pearce Other [facility] Other Start: 10-10-2021 Office outpatient vi sit [...] Work Phone: Start: 10-27-2024 [facility] UA (CLEAN/CATCH) GATE ATTENDANT/MICRO IF IND. Osei Helena DO Work Phone: Start: 10-23-2024 OB BPP W NON-STRESS Generic External Data Provider Start: 10-15-2024 Urnls dip stick/tabl et rgnt non-auto w/o micrscp Osei Helena DO Work Phone: Start: 10-02-2024 Urnls dip stick/tabl et rgnt non-auto w/o micrscp Osei Helena DO Work Phone: Start: 09-25-2024 [facility] UA (CLEAN/CATCH) GATE ATTENDANT/MICRO IF IND. Osei Helena DO Work Phone: [...] Osei Helena DO Work Phone: Start: 07-10-2023 [facility] Pr ovider Historical Start: 06-08-2023 Plain chest X-ray WELLNESS PROGRAM MANAGER-C Ibis Renteria Work Phone: Start: 01-18-2023 Plain chest X-ray WELLNESS PROGRAM MANAGER-C Ibis Renteria Work Phone: Start: 05-03-2022 Plain chest X-ray WELLNESS PROGRAM MANAGER-C Ibis Renteria Work Phone: Start: 08-05-2021 Arthroscopy of knee Lorna Watson Arthroscopy of knee Ibis Limer Work Phone: Cryotherapy of warts Rajeev Watson Extraction of wisdom tooth Ibis Ellis Myra Work Phone: SARS-CoV-2, Influenz a & RSV (PCR) WELLNESS PROGRAM MANAGER-C Ibis Limer Work Phone: Tonsillectomy and adenoidectomy Ibis Limer Work Phone: Tonsillectomy and adenoidectomy Celeste Watson NEGATED: Highlighted row has not occurred! Total colonoscopy Ibis Ellis Myra Work Phone: Plan of Treatment Date Care Activity Detail Author Start: 03-25-2034 DTaP,Tdap and Td Vac cines (8 - Td or Tdap) DTaP,Tdap and Td Vaccines (8 - Td or Tdap) [facility] Start: 03-25-2034 Urine microalbumin profile DTaP,Tdap,Td Vaccine (8 - Td or Tdap) [facility] Start: 08-05-2027 Screening for malign ant neoplasm of cervix Pap Smear [facility] Start: 10-17-2025 End: 10-17-2025 US MFM with or without consult US MFM with or without consult Imaging Routine Dichorionic diamniotic twin in third trimester Expected: 10/17/2025 (Approximate), Expires: 10/17/2025 [employer] Work Phone: Comment on above: Expected: 10/17/2025 [...] Adult BMI Screening Adult BMI Screen ing [facility] Start: 08-13-2025 Tobacco Screening Tobacco Screening [facility] Start: 11-26-2024 End: 11-26-2024 Patient encounter procedure 11/26/2024 2:10 PM EST Routine [facility] [address] [place] [id number] Osei Malik, DO [address] [place] [address] [facility] Start: 11-12-2024 End: 11-12-2024 Patient encounter procedure 11/12/2024 9:30 AM EST Appointment [facility] [address] [place] [address] [facility] Start: 11-10-2024 End: 11-10-2024 Patient encounter procedure 11/10/2024 9:00 AM EST Routine [facility] [address] [place] [id number] Osei Malik, DO [address] [place] [address] [facility] Start: 10-29-2024 End: 10-29-2024 Patient encounter procedure [facility] Comment on above: Arrived Start: 10-16-2024 End: 10-16-2024 Patient encounter procedure 10/16/2024 1:00 PM EST Appointment [facility] [address] [place] [address] [facility] Start: 10-15-2024 End: 10-15-2024 Patient [...] AM EST Routine [facility] [address] [place] [address] Osei Malik DO [address] [place] [address] [facility] Start: 09-25-2024 Urine culture [facility] Start: 09-25-2024 Bacteria identified in Urine by Culture Urine Culture [facility] Start: 09-23-2024 End: 09-23-2024 Patient encounter procedure 09/23/2024 1:00 PM EST Appointment [facility] [address] [place] [id number] [facility] Start: 09-19-2024 End: 09-19-2024 Patient encounter procedure 09/19/2024 9:30 AM EST Appointment [facility] [address] [place] [address] [facility] Start: 09-18-2024 End: 09-18-2024 Patient encounter procedure [facility] Comment on above: Arrived Start: 09-03-2024 End: 09-03-2024 Patient encounter procedure [facility] Comment on above: Arrived Start: 09-02-2024 End: 09-02-2024 ambulatory 09/02/2024 12:15 PM EST [facility] [address] [place] [address] Jyoti Dickey PA-C [address] [place], [place] [id number] F/u Neurology Comment on above: F/u Start: 09-02-2024 End: 09-02-2024 ambulatory 09/02/2024 10:45 AM EST [facility] Neu[facility] [address] [place] [address] Jyoti Dickey PA-C [address] [place], [place] [id number] F/u Neurology Comment on above: F/u Start: 08-27-2024 End: 08-27-2024 Patient encounter procedure 08/27/2024 1:00 PM EST Office Visit [facility] [address] [facility] [address] [place] [id number] Camilla Garcia PA [address] [facility] [address] [place] [address] Arrived [facility] Comment on above: Arrived Start: 08-13-2024 End: 08-13-2024 Patient encounter procedure [facility] Start: 08-05-2024 End: 02-02-2025 Alpha fetoprotein, maternal Alpha fetoprotein, maternal Lab Routine Second trimester Expected: 08/05/2024 (Approximate), Expires: 02/02/2025 [facility] Comment on above: Expected: 08/05/2024 (Approximate), Expires: 02/02/2025 Start: 08-05-2024 End: 08-05-2024 Patient encounter procedure 08/05/2024 8:50 AM EST Routine [facility] [address] [phone] Osei Malik DO [address] [facility] [address] [place] [address] [facility] Start: 07-03-2024 End: 07-03-2024 Patient encounter procedure [facility] Comment on above: Arrived Start: 06-04-2024 End: 06-04-2024 Patient encounter procedure [facility] OB Comment on above: Arrived Start: 05-25-2024 Covid-19 Vaccine ( season) Covid-19 Vaccine () [facility] Start: 05-25-2024 Covid-19 Vaccine () Covid-19 Vaccine () [facility] Start: 05-25-2024 Influenza vaccination C [facility] Start: 05-23-2024 End: 05-23-2025 ABO/Rh ABO/Rh Lab Routine Missed menses Expected: 05/23/2024 (Approximate), Expires: 05/23/2025 [facility] Comment on above: Expected: 05/23/2024 (Approximate), Expires: 05/23/2025 Start: 05-23-2024 End: 05-23-2025 Blood type and Indirect antibody screen panel - Blood Type and screen Lab Routine Missed menses Expected: 05/23/2024 (Approximate), Expires: 05/23/2025 [facility] Work Phone: Comment on above: Expected: 05/23/2024 (Approximate), Expires: 05/23/2025 Start: 05-23-2024 End: 05-23-2025 US Pelvis transvaginal US OB transvaginal Imaging Routine Missed menses Expected: 05/23/2024 (Approximate), Expires: 05/23/2025 [facility] Comment on above: Expected: 05/23/2024 (Approximate), Expires: 05/23/2025 Start: 05-23-2024 End: 05-23-2024 ambulatory 05/23/2024 9:00 AM EDT Initial [facility] [address] [facility] [place] [id number] [facility] Start: 05-23-2024 End: 05-23-2024 Professional / ancillary services management 05/23/2024 8:30 AM EDT Ancillary Procedure [facility] [address] [place] [id number] [facility] Start: 05-20-2024 End: 05-20-2024 Patient encounter procedure 05/20/2024 9:30 AM EDT Office Visit [facility] [address] [facility] [address] [place] [id number] Camilla Garcia PA [address] [facility] [address] [place] [address] Arrived [facility] Comment on above: Arrived Start: 04-20-2024 Urine microalbumin profile DTaP,Tdap,Td Vaccine (7 - Td or Tdap) [facility] Start: 09-24-2023 Depression Assessment Depression Ass essment [facility] Start: 05-25-2023 Covid-19 Vaccine ( season) Covid-19 Vaccine ( season) [facility] Start: 05-25-2023 Influenza vaccination C [facility] Start: 04-25-2023 [facility] Start: 04-06-2023 FUV, Provider: Annalee Maza, Status: Pen, Time: 2:40 PM FUV, Provider: Annalee Maza, Status: Pen, Time: 2:40 PM [facility] 320 DO Work Phone: Start: 2022 PAP TESTING PAP TESTING [facility] Start: 2022 Screening for malign ant neoplasm of cervix [facility] Start: 10-13-2022 FUV, Provider: Annalee Maza, Status: Pen, Time: 9:20 AM FUV, Provider: Annalee Maza, Status: Pen, Time: 9:20 AM [facility] 320 DO Work Phone: Start: 09-24-2022 DEPRESSION ASSESSMENT DEPRESSION [facility] Start: 09-11-2022 FUV, Provider: Melodie Alcaraz, Status: Pen, Time: 9:30 AM FUV, Provider: Melodie Alcaraz, Status: Pen, Time: 9:30 AM [facility] [place] 250 DO Work Phone: Start: 09-11-2022 EVENT EZEKIEL, Provider : HERIBERTO SINGH [place] 1,[id number], Status: Pen, Time: 8:30 AM EVENT EZEKIEL, Provider: HERIBERTO SINGH [employer]OLD [place]IVER 1,[id number], Status: Pen, Time: 8:30 AM [facility] 320 DO Work Phone: Start: 08-14-2022 EVENT EZEKIEL, Provider : HERIBERTO LEMON [employer] [place]IVER 1,[id number], Status: Pen, Time: 10:00 AM EVENT EZEKIEL, Provider: HERIBERTO LEMON FOLD SKIVER 1,[id number], Status: Pen, Time: 10:00 AM [facility] 250 DO Work Phone: Start: 07-21-2022 NPVRFRL, Provider: Annalee Maza, Status: Pen, Time: 7:20 AM NPVRFRL, Provider: Annalee Maza, Status: Pen, Time: 7:20 AM [facility] 250 DO Work Phone: Start: 07-10-2022 FUV, Provider: Melodie Alcaraz, Status: Pen, Time: 10:45 AM FUV, Provider: Melodie Alcaraz, Status: Pen, Time: 10:45 AM [facility] 250 DO Work Phone: Start: 06-05-2022 [place], Provider: Annalee Maza, Status: Pen, Time: 10:00 AM [place] [place], Provider: Annalee Maza, Status: Pen, Time: 10:00 AM [facility] 250 DO Work Phone: Start: 05-25-2022 Influenza vaccination C [facility] Start: 05-18-2022 FUV, Provider: Melodie Alcaraz, Status: Pen, Time: 9:15 AM FUV, Provider: Melodie Alcaraz, Status: Pen, Time: 9:15 AM -[facility] 250 DO Work Phone: Start: 05-08-2022 End: 05-08-2022 Patient encounter procedure [facility] Start: 05-03-2022 SURGNON[facility], Provider: María Elena Freire, Status: Pen, Time: 10:00 AM SURGNONUH, Provider: María Elena Freire, Status: Pen, Time: 10:00 AM -[facility] 250 DO Work Phone: Start: 03-28-2022 EVENT EZEKIEL, Provider : HERIBERTO SINGH [employer] [place] 1,[id number], Status: Pen, Time: 8:00 AM EVENT [facility]EL, Provider: HERIBERTO SINGH [employer] [place] 1,[id number], Status: Pen, Time: 8:00 AM -[facility] 250 DO Work Phone: Start: 01-25-2022 End: 03-27-2022 Chronic hepatitis differentiation between hepatitis B and C virus panel - Serum or Plasma [facility] Work Phone: Comment on above: Expected: 01/25/2022 , Expires: 03/27/2022 Start: 01-25-2022 End: 03-27-2022 Complement C1 esterase inhibitor [Mass/volume] in Serum or Plasma [facility] Work Phone: Comment on above: Expected: 01/25/2022 , Expires: 03/27/2022 Start: 01-25-2022 End: 03-27-2022 Complement C2 [Mass/volume] in Serum or Plasma [facility] Work Phone: Comment on above: Expected: 01/25/2022 , Expires: 03/27/2022 Start: 09-24-2021 DEPRESSION ASSESSMENT DEPRESSION ASS ESSMENT [facility] Start: 06-16-2021 COVID-19 VACCINE (3 - Booster for Pfizer series) COVID-19 VACCINE (3 - Booster for Pfizer series) [facility] Start: 03-11-2021 COVID-19 VACCINE (3 - Booster for Pfizer series) COVID-19 VACCINE (3 - Booster for Pfizer series) [facility] Start: 02-11-2021 COVID-19 VACCINE (3 - Pfizer risk series) COVID-19 VACCINE (3 - Pfizer risk series) [facility] Start: 2020 SHINGRIX VACCINE (1 of 2) VANG GRIX VACCINE (1 of 2) [facility] Start: 2020 Urine microalbumin profile [facility] Start: 12-03-2019 Adult BMI Follow Up Plan Adult BMI Follow Up Plan [facility] Start: 12-03-2019 Adult BMI Screening Adult BMI Screen ing [facility] Start: 12-03-2019 Anxiety Screening Anxiety Screening [facility] Start: 12-03-2019 CHLAMYDIA SCREENING (18-24) CHLAMYDIA SCREENING (18-24) [facility] Start: 12-03-2019 Depression Screening Depression Scre ening [facility] Start: 12-03-2019 GC (GONORRHEA) SCREE NINI (18-24) GC (GONORRHEA) SCREENING (18-24) [facility] Start: 12-03-2019 HEPATITIS C SCREENING HEPATITIS C SC REENING [facility] Start: 12-03-2019 HIV SCREENING HIV SCREENING [facility] Start: 12-03-2019 HIV screening HIV Screening [facility] Start: 12-03-2019 Screening for Chlamy taylor trachomatis Chlamydia Screening (18-24) [facility] Start: 2017 Meningococcal B Vacc ine: Consider Based On Risk (1 of 2 - Patient Seeks Protection) Meningococcal B Vaccine: Consider Based On Risk (1 of 2 - Patient Seeks Protection) [facility] Start: 12-03-2015 PEDS TO ADULT TRANSI TION ANNUAL ASSESSMENT PEDS TO ADULT TRANSITION ANNUAL ASSESSMENT [facility] Start: 2013 Adult depression screening assessment DEPRESSION SCREENING [facility] Start: 2013 PEDS TO ADULT TRANSI TION INITIAL DISCUSSION PEDS TO ADULT TRANSITION INITIAL DISCUSSION [facility] Start: 2013 Tobacco Screening Tobacco Screening [facility] Start: 2012 HPV VACCINE (1 - 2-d ose series) HPV VACCINE (1 - 2-dose series) [facility] Start: 12-03-2011 MENINGOCOCCAL B: Con pmo lead based on risk (1 of 2 - Risk Bexsero 2-dose series) MENINGOCOCCAL B: Consider based on risk (1 of 2 - Risk Bexsero 2-dose series) [facility] Start: 2010 HPV Vaccine (1 - 2-d ose series) HPV Vaccine (1 - 2-dose series) [facility] Start: 2010 HPV VACCINES (1 - 2- dose series) HPV VACCINES (1 - 2-dose series) [facility] Start: 2008 DTaP/Tdap/Td VACCINE S (1 - Tdap) DTaP/Tdap/Td VACCINES (1 - Tdap) [facility] Start: 12-03-2007 PNEUMOCOCCAL (1 - PCV) PNEUMOCOCCAL (1 - PCV) [facility] Start: 2002 MMR VACCINES (1 of 1 - Standard series) MMR VACCINES (1 of 1 - Standard series) [facility] Start: 2002 VARICELLA VACCINES ( 1 of 2 - 2-dose childhood series) VARICELLA VACCINES (1 of 2 - 2-dose childhood series) [facility] Start: 06-04-2002 COVID-19 Vaccine (#1) COVID-19 Vacci ne (#1) [facility] Start: 2001 HEPATITIS B (1 of 3 - 3-dose series) HEPATITIS B (1 of 3 - 3-dose series) [facility] Start: 2001 Hepatitis B Vaccine (1 of 3 - 3-dose series) Hepatitis B Vaccine (1 of 3 - 3-dose series) [facility] Start: 2001 HEPATITIS B VACCINES (1 of 3 - 3-dose series) HEPATITIS B VACCINES (1 of 3 - 3-dose series) [facility] Start: 2001 Screening for Chlamy taylor trachomatis Chlamydia Screening [facility] Bacteria identified in Urine by Culture Urine culture Microbiology Routine Missed menses Ordered: 05/23/2024 [facility] Comment on above: Ordered: 05/23/2024 CBC W Auto Different ial panel - Blood CBC and differential Lab Routine Missed menses Ordered: 05/23/2024 [facility] Comment on above: Ordered: 05/23/2024 CHLAMYDIA TRACHOMATI S (GENITO/STI) CHLAMYDIA TRACHOMATIS (GENITO/STI) Lab Routine STD exposure Ordered: 08/05/2024 [facility] Comment on above: Ordered: 08/05/2024 Cytology Cervical or vaginal smear or scraping study Pap Smear Pathology and Cytology Routine Well woman exam with routine gynecological exam Ordered: 08/05/2024 [facility] Comment on above: Ordered: 08/05/2024 Hemoglobin A1c/Hemoglobin.total in Blood Hemoglobin A1c Lab Routine Missed menses Ordered: 05/23/2024 [facility] Comment on above: Ordered: 05/23/2024 Hepatitis B virus ramirez rface Ag [Presence] in Serum or Plasma by Immunoassay Hepatitis B surface antigen Lab Routine Missed menses Ordered: 05/23/2024 [facility] Comment on above: Ordered: 05/23/2024 Hepatitis C virus Ab [Presence] in Serum or Plasma by Immunoassay Hepatitis C antibody Lab Routine Missed menses Ordered: 05/23/2024 [facility] Comment on above: Ordered: 05/23/2024 HIV-1/HIV-2 antigen/antibody combination immunoassay HIV-1 and HIV-2 antibodies Lab Routine Missed menses Ordered: 05/23/2024 [facility] Comment on above: Ordered: 05/23/2024 Neisseria gonorrhoea e DNA [Presence] in Unspecified specimen by PERFECTO with probe detection Neisseria gonorrhea DNA probe, direct Lab Routine STD exposure Ordered: 08/05/2024 [facility] Comment on above: Ordered: 08/05/2024 Patient Education [facility] Work Phone: Patient referral [facility] Work Phone: Reagin Ab [Presence] in Serum by RPR RPR Lab Routine Missed menses Ordered: 05/23/2024 [facility] Comment on above: Ordered: 05/23/2024 Rubella antibody, IgG Rubella an tibody, IgG Lab Routine Missed menses Ordered: 05/23/2024 [facility] Comment on above: Ordered: 05/23/2024 SURESWAB(R) ADVANCED VAGINITIS PLUS, TMA SURESWAB(R) ADVANCED VAGINITIS PLUS, TMA Pathology and Cytology Routine Vaginal discharge Ordered: 08/05/2024 [facility] Work Phone: Comment on above: Ordered: 08/05/2024 End: 08-04-2024 XR KNEE GENERAL 4V AP BOTH/PA BOTH/LAT/MERC RIGHT XR KNEE GENERAL 4V AP BOTH/PA BOTH/LAT/MERC RIGHT Radiology Routine Right knee pain, unspecified chronicity 1 Occurrences starting 07/06/2023 until 08/04/2024 [facility] Work Phone: Comment on above: 1 Occurrences starti ng 07/06/2023 until 08/04/2024 [facility] Immunizations Immunization Date Immunization Notes Care Provider [facility] 07-24-2024 influenza, seasonal, injectable, preservative free Camilla TOLBERT Work Phone: [facility] Work Phone: 03-25-2024 tetanus toxoid, redu richar diphtheria toxoid, and acellular pertussis vaccine, adsorbed Camilla TOLBERT Work Phone: [facility] 07-05-2023 influenza virus vaccine, unspecified formulation Celeste Watson [facility] 07-05-2023 influenza, injectabl e, quadrivalent, preservative free Camilla TOLBERT Work Phone: [facility] 01-14-2021 Pfizer-BioNTech COVID-19 Vacc 30 MCG/0.3ML Intramuscular Suspension Ibis Renteria Work Phone: [facility] Comment on above: Result Comment: 2023: TPVAL 12-24-2020 Pfizer-BioNTech COVID-19 Vacc 30 MCG/0.3ML Intramuscular Suspension Ibis Renteria Work Phone: [facility] Comment on above: Result Comment: 2023: TPVAL 12-11-2017 meningococcal polysaccharide (groups A, C, Y and W-135) diphtheria toxoid conjugate vaccine (MCV4P) Christina Portia Other [facility] Other 12-11-2017 meningococcal ACWY vaccine, unspecified formulation Celeste Rinradha [facility] 11-06-2014 human papilloma viru s vaccine, quadrivalent Christina Portia Other [facility] Other 11-06-2014 HPV, unspecified formulation Ibis Arenasncer [facility] Work Phone: 06-26-2014 HPV, unspecified formulation Celeste Rinradha [facility] 06-26-2014 human papilloma viru s vaccine, quadrivalent Christina Portia Other [facility] Other 04-20-2014 human papilloma viru s vaccine, quadrivalent Christina Portia Other [facility] Other 04-20-2014 meningococcal polysaccharide (groups A, C, Y and W-135) diphtheria toxoid conjugate vaccine (MCV4P) Christina Portia Other [facility] Other 04-20-2014 tetanus toxoid, redu richar diphtheria toxoid, and acellular pertussis vaccine, adsorbed Christina Portia Other [facility] 04-20-2014 HPV, unspecified formulation Celeste Rinradha [facility] 04-20-2014 meningococcal ACWY vaccine, unspecified formulation Celeste Rinkes [facility] 12-27-2006 diphtheria, tetanus toxoids and acellular pertussis vaccine, unspecified formulation Ibis A Myra Work Phone: [facility] 250 DO Work Phone: 12-27-2006 DTaP, unspecified formulation Celeste Rinkes [facility] 12-27-2006 measles, mumps, rubella, and varicella virus vaccine Ibis A Myra Work Phone: [facility] 12-27-2006 poliovirus vaccine, inactivated Ibis A Myra Work Phone: [facility] 250 DO Work Phone: 12-27-2006 poliovirus vaccine, unspecified formulation Celeste RinHaiku Deck [facility] 02-06-2003 diphtheria, tetanus toxoids and acellular pertussis vaccine, unspecified formulation Ibis A Mrya Work Phone: [facility] 250 DO Work Phone: 02-06-2003 DTaP, unspecified formulation Celeste RinHaiku Deck [facility] 02-06-2003 haemophilus influenz ae type b vaccine, conjugate unspecified formulation Ibis A Myra Work Phone: [facility] 250 DO Work Phone: 02-06-2003 Hib, unspecified formulation Celeste RinHaiku Deck [facility] 02-06-2003 measles, mumps and rubella virus vaccine Ibis A Myra Work Phone: [facility] 02-06-2003 varicella virus vaccine Susan ica A Myra Work Phone: [facility] 07-02-2002 diphtheria, tetanus toxoids and acellular pertussis vaccine, unspecified formulation Ibis A Myra Work Phone: [place] [address] DO Work Phone: 07-02-2002 DTaP, unspecified formulation Celeste RinHaiku Deck [facility] 07-02-2002 haemophilus influenz ae type b vaccine, conjugate unspecified formulation Ibis A Myra Work Phone: [place] [address] DO Work Phone: 07-02-2002 Hib, unspecified formulation Celeste Rinkes [facility] 07-02-2002 pneumococcal conjuga te vaccine, 7 valent Ibis A Myra Work Phone: [place] [address] DO Work Phone: 07-02-2002 poliovirus vaccine, inactivated Ibis A Myra Work Phone: [place] [address] DO Work Phone: 07-02-2002 poliovirus vaccine, unspecified formulation Celeste RinHaiku Deck [facility] 05-19-2002 diphtheria, tetanus toxoids and acellular pertussis vaccine, unspecified formulation Ibis A Myra Work Phone: [place] [address] DO Work Phone: 05-19-2002 DTaP, unspecified formulation Celeste Rinkes [facility] 05-19-2002 haemophilus influenz ae type b conjugate and Hepatitis B vaccine Ibis A Myra Work Phone: [place] [address] DO Work Phone: 05-19-2002 pneumococcal conjuga te vaccine, 7 valent Ibis A Myra Work Phone: [facility] 250 DO Work Phone: 05-19-2002 poliovirus vaccine, inactivated Ibis A Myra Work Phone: [facility] 250 DO Work Phone: 05-19-2002 poliovirus vaccine, unspecified formulation Celeste RinHaiku Deck [facility] 03-05-2002 diphtheria, tetanus toxoids and acellular pertussis vaccine, unspecified formulation Ibis A Myra Work Phone: [place] [address] DO Work Phone: 03-05-2002 DTaP, unspecified formulation Celeste Rinkes [facility] 03-05-2002 haemophilus influenz ae type b conjugate and Hepatitis B vaccine Ibis A Myra Work Phone: [place] [address] DO Work Phone: 03-05-2002 poliovirus vaccine, inactivated Ibis A Myra Work Phone: [facility] 250 DO Work Phone: 03-05-2002 poliovirus vaccine, unspecified formulation Celeste RinHaiku Deck [facility] 2001 hepatitis B vaccine, pediatric or pediatric/adolescent dosage Ibis A Myra Work Phone: [facility] Payers Date Payer Category Payer Self-pay [id number] 2023 Unknown [id number] 2022 Medicaid [facility] MEDIC [facility] [id number] 2021 Private Health Insurance [id number]. [id number] 2021 Private Health Insurance [id number] 2.16.840.1.359614.19 2020 Private Health Insurance [facility] CHOICE PLUS [id number] 2020-Present [phone] [address] [place] [address] HMO [id number] [id number]. [id number] 2020 Unknown [id number] 2017 Managed Care Other (unspecified) [id number]. [id number] 2013 Medicaid [employer] [id number] 2013-Present [phone] [address] [place] [address] Medicaid [id number]. [id number] 2013 Medicaid [id number] [id number]. [id number] 2007 Unknown [id number] 2.16.840.1.479088.19 2001 Unknown [id number] 2.16.840.1.203697.3.579.2. 1068 2001 Unknown [id number] 2.16.840.1.615783.3.579.2. 594 2001 Unknown [id number] 2.16.840.1.177527.3.579.2. 594 2001 Unknown [id number] 2.16.840.1.919606.3.579.2. 356 2001 Unknown [id number] 2.16.840.1.936086.3.579.2. 356 2001 Unknown [id number] 2.16.840.1.498494.3.579.2. 356 2001 Unknown [id number] 2.16.840.1.730830.3.579.2. 356 2001 Unknown [id number] 2.16.840.1.735048.3.579.2. 356 2001 Unknown [id number] 2.16.840.1.707261.3.579.2. 356 2001 Unknown [id number] 2.16.840.1.893617.3.579.2. 356 2001 Unknown [id number] 2.16.840.1.337495.3.579.2. 356 2001 Unknown [id number] 2.16.840.1.644179.3.579.2. 727 2001 Unknown [id number] 2.16.840.1.600887.3.579.2. 727 2001 Unknown [id number] 2.16.840.1.116516.3.579.2. 727 2001 Unknown [id number] 2.16.840.1.282980.3.579.2. 727 2001 Unknown [id number] 2.16.840.1.604478.3.579.2. 727 2001 Unknown [id number] 2.16.840.1.401705.3.579.2. 1259 2001 Unknown [id number] 2.16.840.1.759490.3.579.2. 1258 2001 Unknown [id number] 2.16.840.1.258070.3.579.2. 1258 2001 Unknown [id number] 2.16.840.1.572397.3.579.2. 1258 2001 Unknown [id number] 2.16.840.1.842497.3.579.2. 1258 2001 Unknown [id number] 2.16.840.1.091756.3.579.2. 1258 2001 Unknown [id number] 2.16.840.1.967258.3.579.2. 1258 2001 Unknown [id number] 2.16.840.1.351324.3.579.2. 1258 2001 Unknown [id number] 2.16.840.1.005591.3.579.2. 1258 2001 Unknown [id number] 2.16.840.1.348139.3.579.2. 1258 2001 Unknown [id number] 2.16.840.1.757897.3.579.2. 1258 2001 Unknown [id number] 2.16.840.1.545288.3.579.2. 1258 2001 Unknown [id number] 2.16.840.1.020924.3.579.2. 1258 2001 Unknown [id number] 2.16.840.1.998343.3.579.2. 1258 2001 Unknown [id number] 2.16.840.1.875921.3.579.2. 1258 2001 Unknown [id number] 2.16.840.1.788726.3.579.2. 1258 2001 Unknown [id number] 2.16.840.1.928257.3.579.2. 1258 2001 Unknown [id number] 2.16.840.1.783007.3.579.2. 1286 2001 Unknown [id number] 2.840.1.090484.3.579.2. 1286 2001 Unknown [id number] 2.16.840.1.020455.3.579.2. 1286 2001 Unknown [id number] 2.16.840.1.392275.3.579.2. 1286 2001 Unknown [id number] 2.16840.1.526169.3.579.2. 1286 Unknown Unknown [employer] BC/BS [id number] Unknown [id number] 2..840.1.971859.3.579.2. 531 Social History Date Type Detail [facility] Work Phone: Start: 2001 Sex Assigned At Not on file C [facility] Start: 01-15-2022 End: 07-31-2022 Exposure to SARS-CoV-2 (event) Not sure [facility] Start: 12-28-2022 End: 02-25-2024 Sex Assigned At [facility] Start: 12-28-2022 End: 02-25-2024 No alcohol use No alcohol use [facility] Comment on above: very rarely soda; Start: 09-20-2019 End: 02-20-2023 Tobacco smoking status NJIS Never smoked tobacco (finding) [facility] Start: 2001 Sex Assigned At Female F [facility] Start: 07-31-2022 End: 02-20-2023 Tobacco use and exposure Smokeless tobacco non-user [facility] Adult Depression Screening Assessment 0 [facility] Start: 09-29-2023 Gender identity Identifies as female gender (finding) [facility] Start: 06-04-2024 End: 10-27-2024 Alcoholic beverage intake Ex-drinker (finding) [facility] Do you belong to any clubs or organizations such as zoroastrian groups, unions, fraternal or athletic groups, or [...] Start: 04-27-2015 End: 09-26-2024 Sex Female (finding) [facility] NEGATED: Highlighted rowStart: RIKF History of tobacco use Passive smoker [facility] Medical Equipment Procedure Code Equipment Code Equipment Origin al Text Equipment Identifier Dates 1 strip by In Vi tro route Daily Use in the morning prior to breakfast, 1 hour after each meal for a total of 4times daily. [id number] Start: 09-18-2024 End: 10-18-2024 1 each by In Vit ro route Daily Use to check FSBS four times daily [id number] Start: 09-18-2024 End: 10-18-2024 Clinical Notes 09-24-2007 [...] nursing note reviewed. Exam conducted with a scientific process operator present. Vitals: Estimated body mass index [...] Osei Malik DO documented in this encounter [facility] 10-29-2024 History of Present illness Narrative Reason [...] nursing note reviewed. Exam conducted with a scientific process operator present. Vitals: Estimated body mass index [...] Osei Malik DO documented in this encounter [facility] 10-15-2024 History of Present illness Narrative Reason for Appointment: Patient ID: [id number] Mai is a 23 y.o. female who [...] nursing note reviewed. Exam conducted with a scientific process operator present. Vitals: Estimated body mass index [...] Osei Malik DO documented in this encounter [facility] 10-02-2024 History of Present illness [...] Do not swallow. Blood Glucose Monitoring Suppl ([employer] Glucometer) w/Device kit 1 kit, Does not [...] nursing note reviewed. Exam conducted with a scientific process operator present. Vitals: Estimated body mass index [...] Osei Malik DO documented in this encounter [facility] 09-25-2024 Telephone encounter Note Patient [...] today. Patient was advised to report to [facility] for check and she was asking if she could go to [facility] as that's closer she was advised we prefer [facility] but she can go where she is comfortable. Patient states will go to [facility] as she is at work and that's closer right now. Patient advised note would be in chart. [facility] Work Phone: 09-25-2024 Miscellaneous Notes [...] today. Patient was advised to report to [facility] for check and she was asking if she could go to [facility] as that's closer she was advised we prefer [facility] but she can go where she is comfortable. Patient states will go to [facility] as she is at work and that's closer right now. Patient advised note would be in chart. documented in this encounter [facility] 09-18-2024 History of Present illness [...] nursing note reviewed. Exam conducted with a scientific process operator present. Vitals: Estimated body mass index [...] Osei Malik DO documented in this encounter [facility] 09-03-2024 History of Present illness [...] Osei Malik DO documented in this encounter [facility] 09-02-2024 History of Present illness Narrative Images from the original note were not included. [facility] Follow-Up VIRTUAL VISIT This is a virtual visit using DraftMixom Video Visit. It required patient-provider interaction for the medical decision making as documented below. I have communicated my name and active licensure. The patient's identity and physical location were verified at the time of this visit. Either the patient or their legal auto claim representative has been informed of the risks [...] which included preparing to see the patient, qhwl-qf-thsf patient care, completing clinical documentation, obtaining and/or reviewing separately obtained history, performing a medically appropriate examination, and counseling and educating the patient/family/caregiver. Jyoti Dickey PA-C Neuromuscular Medicine [address] [place]. [address] Appointment: [phone] During our virtual visit encounter we discussed [...] bright light?: Mild documented in this encounter [facility] 09-02-2024 Note HNO ID: [id number] Author: JYOTI DICKEY PA-C Service: ? Author Type: Physician Biology Teacher Type: Progress Notes Filed: 09/02/2024 11:21 Note Text: [facility] Follow-Up VIRTUAL VISIT This is a virtual visit using DraftMixom Video Visit. It required patient-provider interaction for the medical decision making as documented below. I have communicated my name and active licensure. The patient's identity and physical location were verified at the time of this visit. Either the patient or their legal auto claim representative has been informed of the risks [...] diagnosis) (Z3A.23) 23 weeks gestation of Madyson Mia is a 23 year old female here t (more content not included)... [facility] 08-29-2024 Miscellaneous Notes Batch Analyst spoke to patient . Patient has complains of SOB which she states is mainly at night time. She has recently seen her PCP who stated that her lungs are tight/restricted and prescribed her an inhaler. Today the patient is feeling better and states that when she checked her SPO2 today it was at 96%. Batch Analyst advised patient to monitor and if her O2 Sat falls under 95% and/or the inhaler does not help to present to her nearest ER. Patient verbalized understanding. documented in this encounter [facility] 08-29-2024 Telephone encounter Note Batch Analyst spoke to patient . Patient has complains of SOB which she states is mainly at night time. She has recently seen her PCP who stated that her lungs are tight/restricted and prescribed her an inhaler. Today the patient is feeling better and states that when she checked her SPO2 today it was at 96%. Batch Analyst advised patient to monitor and if her O2 Sat falls under 95% and/or the inhaler does not help to present to her nearest ER. Patient verbalized understanding. [facility] 08-27-2024 Telephone encounter Note Alternative inhaler requested by pharmacy. [facility] 08-27-2024 Miscellaneous Notes Alternative inhaler requested by pharmacy. documented in this encounter [facility] 08-27-2024 History of Present illness Narrative Images from the original note were not included. Subjective Patient ID: Madyson Mai is a 23 y.o. female who presents for asthma. Madyson is present today for evaluation of asthma. Admits she is 22 weeks with twins, she is not sure if that is what is flaring up her asthma. She has not see her candy vendor in a couple of years and her [...] fail to improve. documented in this encounter [facility] 08-13-2024 History of Present illness [...] no Have you been seen here at [facility] in a previous ? no Recent ER visits or hospitalizations? no Bring blood sugar log or meter with you today? (Please bring them with you for every visit at [facility]) n/a Flu vaccine (Jul-November)? Yes Any [...] Resource Strain: Low Risk (02/25/2024) Received from [facility] Overall Financial Resource Strain (CARDIA) Difficulty of Paying Living Expenses: Not very hard Food Insecurity: No Food Insecurity (08/13/2024) Hunger Screening Food Insecurity - Worry: Never True Food Insecurity - Inability: Never True Transportation Needs: No Transportation Needs (02/25/2024) Received from [facility] PRAPARE - Transportation Lack of Transportation (Medical): No Lack of Transportation (Non-Medical): No Physical Activity: Inactive (02/25/2024) Received from [facility] Exercise Vital Sign Days of Exercise per Week: 0 days Minutes of Exercise per Session: 0 min Stress: No Stress Concern Present (02/25/2024) Received from [facility] [place] [facility] Occupational Health - Occupational Stress Questionnaire Feeling of Stress : Only a little Social Connections: Moderately Integrated (02/25/2024) Received from [facility] Social Connection and Isolation Panel [NHANES] Frequency of Communication with Friends and Family: More than three times a week Frequency of Social Gatherings with Friends and Family: Three times a week Attends Evangelical Services: More than 4 times per year Active Member of Clubs or Organizations: No Attends Club or Organization Meetings: Patient declined Marital Status: Interpersonal Safety: Not on file Housing Instability: Low Risk (02/25/2024) Received from [facility] Housing Stability Vital Sign Unable [...] complications, or both, related to use. The [place] and the [...] tachycardia syndrome) She follows with Neurology at [facility]. Last visit was on 07/02/2024. External records reviewed. 07/02/2024 - General Neurology, Joie Seaman APRN.RESEARCH COMPLIANCE SPECIALIST ASSESSMENT Madyson Mai is a 23 year [...] with routine care in your office [facility], the CDC, and other organizations representing maternal and public health professionals recommend that , , and lactating people and those considering receive the COVID-19 vaccination. Vaccination is the best method to reduce maternal and complications of SARS-CoV-2 infection. This document was created with RateElert technology. Though I make every effort to review the dictation as it is transcribed, on occasion the spoken word can be misinterpreted by the technology leading to inappropriate words, phrases, or sentences. This note is addressed to the requesting provider as a consultation for clinical guidance. Specific medical abbreviations are occasionally used and those are generally approved by the [place]?Board of?Obstetrics and?Gynecology?as well as?Loretta zacarias abbreviations. The above plan of care was based solely on the diagnoses for which a consultation was requested. ?More frequent testing may be indicated based on her other medical/obstetrical conditions. The management of other or medical conditions is beyond the scope of requested consultation and will continue to be followed by the primary icing mixer or primary care provider. Thank you for [...] procedures Referring and communicating with other health behavioral health care manager (not separately reported) Documenting clinical information in the electronic or other health record Independently interpreting results (not separately reported) and communicating results to the patient/family/caregiver Care coordination (not separately reported) documented in this encounter [facility] 08-06-2024 Telephone encounter Note Can we have her schedule for a follow up appointment. Can be virtual or in person. Thanks, AM [facility] Work Phone: 08-06-2024 Miscellaneous Notes Can we have her schedule for a follow up appointment. Can be virtual or in person. Thanks, AM documented in this encounter [facility] 08-05-2024 History of Present illness Narrative [...] nursing note reviewed. Exam conducted with a scientific process operator present. Vitals: Estimated body mass index [...] obtained without difficulty and patient was given [facility] order to have obtained. Orders Placed This Encounter Procedures CHLAMYDIA TRACHOMATIS (GENITO/STI) Neisseria gonorrhea DNA probe, direct Alpha fetoprotein, maternal POCT urinalysis dipstick manually resulted Follow Up: Patient is to return to our office in 4 weeks for routine OB appointment Documented by Annika Silva LPN on behalf of: TOMASZ Rizvi documented in this encounter [facility] 07-03-2024 History of Present illness [...] current . Patient is being referred to [facility] for her twin , gave her information about who she will be seeing there. No orders of the defined types were placed in this encounter. Follow Up: Patient is to return to office in 4 weeks for routine OB appointment. Documented by Ibis Sandoval on behalf of: TOMASZ Rizvi documented in this encounter [facility] 07-02-2024 History of Present illness Narrative Images from the original note were not included. [facility] Follow Up / Established Virtual Visit I have communicated my name and active licensure. The patient's identity and physical location were verified at the time of this visit. Either the patient or their legal auto claim representative has been informed of the risks and benefits of -- and alternatives to -- treatment through a remote evaluation and consents to proceed with the evaluation remotely. Individuals who were included in, or assisted with the encounter were: Madyson Seaman APRN.RESEARCH COMPLIANCE SPECIALIST Chief Complaint/Issues: Madyson Mai is a 23 year old female seen in the [facility] for: POTS Most [...] Plan 07/02/2024 - General Neurology, Joie Seaman, JOHNNY.RESEARCH COMPLIANCE SPECIALIST ASSESSMENT Madyson Mai is a 23 year [...] which included preparing to see the patient, tzsz-vw-emre patient care, completing clinical documentation, obtaining and/or [...] and warrants attention documented in this encounter [facility] 07-02-2024 Note HNO ID: [id number] Author: JOIE SEAMAN APRN.CNP Service: ? Author Type: Nurse Practitioner Type: Progress Notes Filed: 07/02/2024 19:57 Note Text: [facility] Follow Up / Established Virtual Visit I have communicated my name and active licensure. The patient's identity and physical location were verified at the time of this visit. Either the patient or their legal auto claim representative has been informed of the risks and benefits of -- and alternatives to -- treatment through a remote evaluation and consents to proceed with the evaluation remotely. Individuals who were included in, or assisted with the encounter were: Madyson Mai Joie Seaman APRN.RESEARCH COMPLIANCE SPECIALIST Chief Complaint/Issues: Madyson Mai is a 23 year old female seen in the [facility] for: POTS Most [...] Plan 07/02/2024 - General Neurology, Joie Seaman APRN.RESEARCH COMPLIANCE SPECIALIST ASSESSMENT Madyson Mai is a 23 year [...] Mostly Moderately S (more content not included)... [facility] 06-04-2024 History of Present illness [...] nursing note reviewed. Exam conducted with a scientific process operator present. Vitals: Estimated body mass index [...] possibly adding medication. Pt being referred to [facility] for TWIN gestation. Expectations throughout regarding labs, ultrasounds, and appointments have been discussed with the patient in detail. It was reiterated that the patient is to drink 6-8 glasses of water a day, eat 6 small meals a day, do not consume raw or undercooked meat, and stay away from [facility]. Patient has been consulted regarding any further do's and don'ts of . Patient voiced understanding and all questions and concerns were answered. Orders Placed This Encounter Procedures POCT urinalysis dipstick manually resulted Follow Up: Patient is to return in 4 weeks for routine OB appointment. Documented by Camilla Bar LPN on behalf of: Osei Malik DO documented in this encounter [facility] 05-23-2024 History of Present illness [...] providers found * documented in this encounter [facility] 05-20-2024 History of Present illness [...] for less systemic absorption. Consider intensive care anaesthetist. Can provide pt with referral to PT if symptoms do not improve with the above. X-rays not yet indicated, especially as pt is . Follow up if symptoms worsen or fail to improve. documented in this encounter [facility] 03-20-2024 History of Present illness Narrative Images from the original note were not included. [facility] Follow-Up VIRTUAL VISIT This is a virtual visit using DraftMixom Video Visit. It required patient-provider interaction for the medical decision making as documented below. I have communicated my name and active licensure. The patient's identity and physical location were verified at the time of this visit. Either the patient or their legal auto claim representative has been informed of the risks [...] which included preparing to see the patient, qqgd-ax-puce patient care, completing clinical documentation, obtaining and/or reviewing separately obtained history, performing a medically appropriate examination, counseling and educating the patient/family/caregiver, and ordering medications, tests, or procedures. Jyoti Dickey PA-C Neuromuscular Medicine [facility] [place]. [address] Appointment: [phone] During our virtual visit encounter we discussed [...] problem? : Mild documented in this encounter [facility] 03-20-2024 Note HNO ID: [id number] Author: JYOTI DICKEY PA-C Service: ? Author Type: Physician Biology Teacher Type: Progress Notes Filed: 03/20/2024 15:17 Note Text: [facility] Follow-Up VIRTUAL VISIT This is a virtual visit using DraftMixom Video Visit. It required patient-provider interaction for the medical decision making as documented below. I have communicated my name and active licensure. The patient's identity and physical location were verified at the time of this visit. Either the patient or their legal auto claim representative has been informed of the risks [...] the mean hea (more content not included)... [facility] 11-30-2023 History of Present illness Narrative Images from the original note were not included. [facility] New Patient Evaluation [...] experienced LOC while walking up the stairs. Baxter prodromal symptoms including lightheadedness and tunnel vision. [...] Plantarflexion 5/5 5/5 Movement/Coordination Finger-to- nose-finger and pyjh-jx-numh intact bilaterally. No evidence of ataxia arms. [...] which included preparing to see the patient, atln-fx-ewgs patient care, completing clinical documentation, obtaining and/or [...] on 11/30/23. Jyoti Dickey PA-C Neuromuscular Medicine [address] [place] [address]. [address] Appointment: [phone] 1. This office note has been dictated [...] problem? : Moderate documented in this encounter [facility] 11-30-2023 Note HNO ID: [id number] Author: JYOTI DICKEY PA-C Service: ? Author Type: Physician Biology Teacher Type: Progress Notes Filed: 11/30/2023 11:14 Note Text: [facility] New Patient Evaluation [...] experienced LOC while walking up the stairs. Baxter prodromal symptoms including lightheadedness and tunnel vision. [...] breathing: - Tac (more content not included)... [facility] 11-12-2023 Note HNO ID: [id number] Author: ?, ?, ? Service: ? Author [...] Care Visit completed when applicable. Gauri Harris [facility] 11-12-2023 History of Present illness [...] applicable. Gauri Harris documented in this encounter [facility] 10-10-2023 Note HNO ID: [id number] Author: AURORA SANTIAGO PA-C Service: ? Author Type: Physician Biology Teacher Type: Progress Notes Filed: 10/10/2023 16:33 Note Text: [facility] New Patient Evaluation [...] No current facility-adminis (more content not included)... [facility] 10-10-2023 Note HNO ID: [id number] Author: ANGELIQUE RUTH MD Service: ? Author [...] VE Couplets or VE Triplets were present. [facility] 07-20-2023 Telephone encounter Note Call to Madyson to discuss referral to dysautonomia clinic. Informed her that we are unable to provide dysautonomia evaluation at this time. Provided number for [facility] scheduling service. No other needs at this time. [facility] 07-20-2023 Miscellaneous Notes Call to Madyson to discuss referral to dysautonomia clinic. Informed her that we are unable to provide dysautonomia evaluation at this time. Provided number for [facility] scheduling service. No other needs at this time. documented in this encounter [facility] 07-10-2023 Note HNO ID: [id number] Author: Jose Armando Grey DO Service: ? Author Type: Physician Type: Progress Notes Filed: 07/10/2023 10:08 AM Note Text: [facility] Office Visit Documentation Note [facility] Sports Medicine Orthopaedic and Rheumatologic [place] HISTORY OF PRESENT ILLNESS (HPI) CHIEF COMPLAINT / REASON FOR VISIT SERVICE DATE: July 10, 2023 PCP: No primary care provider on file. Madyson Schmid is here today at request of Dr. Jose Armando Schmid specifically for consultation of my opinion in regards to the chief complaint listed below. Correspondence will be shared today via the [employer] electronic health record or through regular mail, [...] She need to consider PT or personal care attendant. Reaction knee brace Consider [place] toradol, did discuss orthobiologics Follow up: Films prior to visit: Written instructions (see patient instructions) and verbal health education given to patient. Patient verbalizes understanding and agrees with the treatment plan. Jose Armando Grey D.O. [facility] Orthopaedic and Rheumatologic Twisting Department End Finder, [facility] Program Team Physician, [facility] Baseball Club Consulting Physician, [place] Martin Nagel, English Adjunct Faculty [phone] [facility] 07-10-2023 History of Present illness Narrative Images from the original note were not included. [facility] Office Visit Documentation Note [facility] Sports Medicine Orthopaedic and Rheumatologic [place] HISTORY OF PRESENT ILLNESS (HPI) CHIEF COMPLAINT / REASON FOR VISIT SERVICE DATE: July 10, 2023 PCP: No primary care provider on file. Madyson Schmid is here today at request of Dr. Jose Armando Schmid specifically for consultation of my opinion in regards to the chief complaint listed below. Correspondence will be shared today via the [employer] electronic health record or through regular mail, [...] She need to consider PT or personal care attendant. Reaction knee brace Consider [place] toradol, did discuss orthobiologics Follow up: Films prior to visit: Written instructions (see patient instructions) and verbal health education given to patient. Patient verbalizes understanding and agrees with the treatment plan. Jose Armando Grey D.O. [facility] Orthopaedic and Rheumatologic Twisting Department End Finder, [facility] & [employer]onda[employer] Program Team Physician, [facility] [employer] Consulting Physician, [place] Martin Kristina Marybethrao, English Adjunct Faculty [phone] documented in this encounter [facility] 12-28-2022 History of Present illness Narrative [...] surgery Evaluated by DR Case ([facility]) in 2020 no rheum issue found and [...] Swollen Glands: No documented in this encounter [facility] 07-31-2022 History of Present illness Narrative [...] surgery Evaluated by DR Case ([facility]) in 2020 no rheum issue found and [...] Swollen Glands: No documented in this encounter [facility] 07-10-2022 History of Present illness Narrative [...] she did get a second opinion in [place], and no change in medication was suggested [...] with paucity of objective findings on the [id number]. Abnormal tilt table test, with a combination [...] I will defer that to Dr. Maza -[facility] [address] DO Work Phone: 06-12-2022 Note Pre-procedure Verifi cation and Time Out: Pre-Procedure Verification and Time Out: Procedure Locationbedside PRE-PROCEDURE Verificationcompleted TIME OUT - Final Verificationcompleted immediately prior to procedure start General Information: Anesthesia Critical Care: Non-Anesthesia Date/Time of Procedure: 12-Jun-2022 Post-Procedure Diagnosis: syncope Procedure Name: tilt table test Findings: grossly normal anatomy Procedure performed by: nm Biology Teacher(s): none Estimated Blood Loss (mL): none Specimen: [...] Last Updated: 14-Jun-2022 11:56 by Annalee Maza) [facility] 03-24-2022 History of Present illness Narrative [...] while walking to the bathroom.She will see candy vendor in the near future, she had her pulmonary function test which I reviewed, there is concern for chronic asthma, but no reactive airway disease.She has 3 dogs that she had, and 1 cat at home.She is not orthostatic. She is feeling palpitations quite a bit.Results of the pulmonary function test and a Micah PlayerTakesAll was reviewed. Also reviewed stress test and [...] that, we will have to schedule at [facility], and patient is okay with driving.4. Lifestyle modifications such as regular aerobic activity as tolerated, excessive sodium intake, and possibly low-dose beta-blockers can be tried. If her breathing gets worse on the beta-blockers, then she should stop it. We will decide after seen by pulmonary, and also after the results of culpable test are available. [facility] Work Phone: 03-24-2022 History of [...] while walking to the bathroom.She will see candy vendor in the near future, she had her pulmonary function test which I reviewed, there is concern for chronic asthma, but no reactive airway disease.She has 3 dogs that she had, and 1 cat at home.She is not orthostatic. She is feeling palpitations quite a bit.Results of the pulmonary function test and a Micah PlayerTakesAll was reviewed. Also reviewed stress test and [...] that, we will have to schedule at [facility], and patient is okay with driving.4. Lifestyle modifications such as regular aerobic activity as tolerated, excessive sodium intake, and possibly low-dose beta-blockers can be tried. If her breathing gets worse on the beta-blockers, then she should stop it. We will decide after seen by pulmonary, and also after the results of culpable test are available. -[facility]-Jose 250 DO Work Phone: 02-02-2022 Miscellaneous [...] P Mathai, MD documented in this encounter [facility] 01-25-2022 History of Present illness Narrative [...] February Evaluated by DR Case ([facility]) in 2020 no rheum issue found and [...] February Evaluated by DR Case ([facility]) in 2020 no rheum issue found and [...] Irvin Hanna MD documented in this encounter [facility] 01-10-2022 Evaluation note Encounter Date Diagnosis Assessment Notes Dec, Skin rash (ICD-10 - R21) Dec, Other Transient recurrent color casino change attendant the knees and toes I [...] will go ahead with her evaluation in [facility]. [facility] Other 01-17-2022 Evaluation note* Encounter Date Diagnosis [...] day as needed for pain and swelling. [facility] Other 07-01-2021 History of Present illness Narrative* [...] [facility] * There is no family [...] needed, treatment options, risks, benefits, and imponderables. [employer] lifestyle changes and behavioral modification discussed. All questions answered in detail. Counseling over 50% visit regarding above. Patientappreciative of care. * At the end the office visit, she did report that she will be seeing an academic support specialist in [place]. We did discuss that she could hold [...] errors as software dictation application being used. [facility] Work Phone: 1(820) 531-326508-25-2020 History of Present illness Narrative* She is [...] exposed to secondhand smoke from her mother. [facility] Cheek DO Work Phone: [phone]) 258-635807-09-2020 History of Present illness Narrative* Patient is [...] twin brother had to be [facility], and has history of heart murmur. * [...] [facility] Work Phone: [phone]) 120-724207-01-2020 History of Present illness Narrative* Patient is [...] brother had to be taken to [facility], and has history of heart murmur. [...] arise, * Sincerely, * Melodie alcaraz MD [place] [address] DO Work Phone: [phone] History of Present illness Narrative* Patient is [...] brother had to be taken to [facility], and has history of heart murmur. [...] arise, * Sincerely, * Melodie alcaraz MD [facility] [employer] DO Work Phone: [phone]) 874-797801-01-2008 History general Narrative - Reported* Type Description Date Medical History general health good Surgical History tonsillectomy and adenoidectomy 09/2007 [facility] Other 01-01-2008 History general Narrative - Reported* Type Description Date Medical History general health good Surgical History tonsillectomy and adenoidectomy 09/2007 Surgical History right knee cleaned up scar tiss ue 2020 [facility] Other Chief complaint Narrative - ReportedMADYSON SCHMID is being seen for a cardiovascular evaluation of abnormal test(s) results and dyspnea.[facility] [employer] DO Work Phone: Chiqb complaint Narrative - ReportedMADYSON SCHMID is being seen for a cardiovascular evaluation of abnormal test(s) results and dyspnea.[facility] Work Phone: Evaluation + Plan note No data available for this section [facility] Pain and swelling of knee, right- Primary Joint stiffness Stiffness of joint, not elsewhere classified, unspecified site [facility]No assessment information available[facility] Work Phone: Evaluation note* Diagnosis Pain and swelling of knee, right- Primary Joint stiffness Stiffness of joint, not elsewhere classified, unspecified site Inflammatory arthritis Unspecified inflammatory polyarthropathy [facility] Diagnosis Pain and swelling of knee, right- Primary Joint stiffness Stiffness of joint, not elsewhere classified, unspecified site documented [facility]* Diagnosis Right knee pain, unspecified chronicity- Primary [facility]* Diagnosis Chronic pain of right knee- Primary Tendinopathy of gluteal region Unspecified disorder of synovium, tendon, and bursa documented [facility]* Diagnosis Orthostatic lightheadedness- Primary Dizziness and giddiness documented [facility]* Diagnosis POTS (postural orthostatic tachycardia syndrome)- Primary Tachycardia, unspecified [facility]* Diagnosis POTS (postural orthostatic tachycardia syndrome)- Primary Tachycardia, unspecified [facility]* Diagnosis POTS (postural orthostatic tachycardia syndrome)- Primary Tachycardia, unspecified Near syncope Syncope and collapse [facility]* Diagnosis Second trimester state, incidental 14 weeks gestation of documented in this encounter [facility]* Diagnosis Thumb pain, right- [...] Leg cramping Heartburn documented in this encounter [facility] Healthcare[facility] note* Diagnosis Thumb pain, right- [...] of state, incidental [facility] Diagnosis Thumb pain, right- Primary [...] trimester- Primary documented in this encounter [facility]* Diagnosis Thumb pain, right- [...] of control unspecified documented in this encounter [facility]* Diagnosis Dichorionic diamniotic twin in third trimester- Primary [facility] Diagnosis Thumb pain, right- [...] gestation of documented in this encounter [facility]* Diagnosis Dichorionic diamniotic twin [...] [facility] * There is no change [...] patient that she saw Dr. Muñiz at [facility] for second opinion regarding neurally mediated syncope and near syncope. He agreed with evaluation and management and patient opted to follow-up here at [facility] in [place]. * Zio patch August 2022. All rhythms [...] needed, treatment options, risks, benefits, and imponderables. [employer] lifestyle changes and behavioral modification discussed. All questions answered in detail. Counseling over 50% visit regarding above. Patient appreciative of care. * Grammar * Please excuse grammatical or dictation errors as software dictation application being used. [facility] 320 DO Work Phone: History of Present illness Narrative* The patient states she has been generally stable since the last visit. * Symptoms: denies chest pain at rest, denies exertional chest pain, denies dyspnea, stable fatigue, denies exercise intolerance, stable palpitations, denies edema, denies orthopnea, stable dizziness and stable orthostatic dizziness. * Disease Monitoring: [facility] 600 DO Work Phone: Hospital Discharge instructions No data available for this section [facility]ructionsNot on filedocumented in this encounter [facility] [employer] SystemInstructionsNot on filedocumented in this encounter [facility] SystemInstructionsNot on filedocumented in this encounter [facility] SystemInstructionsNot on filedocumented in this encounter [facility] SystemInstructionsNot on filedocumented in this encounter [facility] SystemProgress note No data available for this section [facility] for referral (narrative)* Diagnostic Procedure Only (Routine) - Pending Review Specialty Diagnoses / Procedures Referred By Contac t Referred To Contact XR IMAGING Diagnoses Right knee pain, unspecified chronicity Procedures XR KNEE GENERAL 4V AP BOTH/PA BOTH/LAT/MERC RIGHT RADIOLOGIC EXAM KNEE COMPLETE 4/[place] [address] [place] [address] [place] [address] Referral ID Status Reason Start Date Expiration Date Visits Requested Visits Authorized [id number] Pending Review Auto-Generat ed Referral 3 08/04/2024 1 1 [facility] for visit Narrativerash knee referral from Cj Jaimes, She gets a funny rash on her knee and toesNorth [place] Other Summary Purpose Family History Unknown Family [...] any alcohol or drug abuse patient.[facility] HospitalIn the event this information is protected by the Federal Confidentiality of Alcohol and Drug Abuse Patient Records regulations: The Federal rules restrict any use of the information to criminally investigate or prosecute any alcohol or drug abuse patient.[facility] HospitalIn the event this information is protected by the Federal Confidentiality of Alcohol and Drug Abuse Patient Records regulations: The Federal rules restrict any use of the information to criminally investigate or prosecute any alcohol or drug abuse patient.[facility] HospitalIn the event this information is protected by the Federal Confidentiality of Alcohol and Drug Abuse Patient Records regulations: The Federal rules restrict any use of the information to criminally investigate or prosecute any alcohol or drug abuse patient.[facility] HospitalIn the event this information is protected by the Federal Confidentiality of Alcohol and Drug Abuse Patient Records regulations: The Federal rules restrict any use of the information to criminally investigate or prosecute any alcohol or drug abuse patient.[facility] HospitalIn the event this information is protected by the Federal Confidentiality of Alcohol and Drug Abuse Patient Records regulations: The Federal rules restrict any use of the information to criminally investigate or prosecute any alcohol or drug abuse patient.[facility] HospitalIn the event this information is protected by the Federal Confidentiality of Alcohol and Drug Abuse Patient Records regulations: The Federal rules restrict any use of the information to criminally investigate or prosecute any alcohol or drug abuse patient.[facility] HospitalIn the event this information is protected by the Federal Confidentiality of Alcohol and Drug Abuse Patient Records regulations: The Federal rules restrict any use of the information to criminally investigate or prosecute any alcohol or drug abuse patient.[facility] HospitalIn the event this information is protected by the Federal Confidentiality of Alcohol and Drug Abuse Patient Records regulations: The Federal rules restrict any use of the information to criminally investigate or prosecute any alcohol or drug abuse patient.[facility] HospitalIn the event this information is protected by the Federal Confidentiality of Alcohol and Drug Abuse Patient Records regulations: The Federal rules restrict any use of the information to criminally investigate or prosecute any alcohol or drug abuse patient.[facility] HospitalIn the event this information is protected by the Federal Confidentiality of Alcohol and Drug Abuse Patient Records regulations: The Federal rules restrict any use of the information to criminally investigate or prosecute any alcohol or drug abuse patient.[facility] HospitalIn the event this information is protected by the Federal Confidentiality of Alcohol and Drug Abuse Patient Records regulations: The Federal rules restrict any use of the information to criminally investigate or prosecute any alcohol or drug abuse patient.[facility] HospitalIn the event this information is protected by the Federal Confidentiality of Alcohol and Drug Abuse Patient Records regulations: The Federal rules restrict any use of the information to criminally investigate or prosecute any alcohol or drug abuse patient.[facility] Reason for Visit (unrecogniz ed section [...] content) DATE CREATED AUTHOR 02/03/2022 [facility] DATE CREATED AUTHOR AUTHOR'S ORGANIZ ATION 06/24/2022 [facility] DATE CREATED AUTHOR AUTHOR'S ORGANIZ ATION 09/15/2022 [employer] DATE CREATED AUTHOR AUTHOR'S ORGANIZ ATION 03/16/2023 [facility] DATE CREATED AUTHOR AUTHOR'S ORGANIZ ATION 06/15/2023 [facility] DATE CREATED AUTHOR AUTHOR'S ORGANIZ ATION 07/11/2023 [facility] DATE CREATED AUTHOR AUTHOR'S ORGANIZ ATION 03/15/2024 [facility] DATE CREATED AUTHOR AUTHOR'S ORGANIZ ATION 04/15/2024 [facility] DATE CREATED AUTHOR AUTHOR'S ORGANIZ ATION 07/11/2024 [facility] DATE CREATED AUTHOR AUTHOR'S ORGANIZ ATION 07/26/[address] [facility] DATE CREATED AUTHOR AUTHOR'S ORGANIZ ATION 09/05/2024 [facility] DATE CREATED AUTHOR AUTHOR'S ORGANIZ ATION 11/06/2024 [facility] DATE CREATED AUTHOR AUTHOR'S ORGANIZ ATION 11/11/2024 [facility] EPIC DATE CREATED AUTHOR AUTHOR'S ORGANIZ ATION 11/14/2024 [facility] Care Teams (unrecognized sec tion and content) Team Status: Inactive Member Role Status Dates Ibis Renteria , WELLNESS PROGRAM MANAGER-C Primary Care Provider Marcelina Davidson NP-C Attending Provider Active Team Status: Inactive Member Role Status Dates Ibisniharika Renteria , WELLNESS PROGRAM MANAGER-C Primary Care Provider Activ e Melodie Alcaraz MD Attending Provider Active Team Status: Inactive Member Role Status Dates Ibis Renteria , WELLNESS PROGRAM MANAGER-C Primary Care Provider Activ e Melodie Alcaraz MD Attending Provider Active Álvaro Osborn MD Referring Provider Active Team Status: Active Member Role Status Dates Ibis Maggy Renteria , WELLNESS PROGRAM MANAGER-C Primary Care Provider Activ e Team Status: Inactive Member Role Status Dates Ibis Maggy Renteria , WELLNESS PROGRAM MANAGER-C Primary Care Provider Activ e Dyllan Pearce APRN Emergency Provider Active Team Status: Inactive Member Role Status Dates Ibiseren Renteria , WELLNESS PROGRAM MANAGER-C Primary Care Provider Activ e Christina Perez APRN Attending Provider Active Team Status: Inactive Member Role Status Dates Ibiseren Renteria , WELLNESS PROGRAM MANAGER-C Primary Care Provider Activ e Carlitos Nguyen Jr, DO Attending Provider Active Fold Skiver Relationship Specialty Start Date End Date Ibis Renteria CNP [address] [place], [place] [id number] PCP - General Nurse Practitioner 07/09/23 Fold Skiver Relationship Specialty Start Date End Date Ibis Renteria CNP [address] [place] [address] PCP - General Nurse Practitioner 07/09/23 Team Status: Inactive Member Role Status Dates Ibiseern Renteria , WELLNESS PROGRAM MANAGER-C Primary Care Provider Activ e Haris Martino DO Emergency Provider Active Team Status: Inactive Member Role Status Dates Ibiseren Renteria , WELLNESS PROGRAM MANAGER-C Primary Care Provider Activ e Nam Barnes DO [facility] Attending Provider Active Fold Skiver Relationship Specialty Start Date End Date Jb Mandujano MD [address] [address] PCP - General Family Medicine 05/20/24 Osei Malik DO [address] [place] [address] [place] [address] Referring Physician Obstetrics and Gynecology 06/05/24 Flori Gil PA [address] [place] [address] Physician Biology Teacher Obstetrics and Gynecology 06/05/24 Fold Skiver Relationship Specialty Start Date End Date Jb Mandujano MD [address] [place] [address] [place] [address] PCP - General Family Medicine 05/20/24 Osei Malik DO [facility] [place] [address] Referring Physician Obstetrics and Gynecology 06/05/24 Flori Gil PA [facility] [place] [address] Physician Biology Teacher Obstetrics and Gynecology 06/05/24 Fold Skiver Relationship Specialty Start Date End Date Jb Mandujano MD [address] [facility] [address] [place] [address] PCP - General Family Medicine 05/20/24 Osei Malik DO [facility] [place] [address] Referring Physician Obstetrics and Gynecology 06/05/24 Flori Gil PA [address] [place] [address] Physician Biology Teacher Obstetrics and Gynecology 06/05/24 Fold Skiver Relationship Specialty Start Date End Date Jb Mandujano MD [address] [facility] [address] [place] [address] PCP - General Family Medicine 05/20/24 Osei Malik, DO [address] [place] [address] Referring Physician Obstetrics and Gynecology 06/05/24 Flori Gil PA [address] [place] [address] Physician Biology Teacher Obstetrics and Gynecology 06/05/24 Fold Skiver Relationship Specialty Start Date End Date Jb Mandujano MD [address] [place] [address] [place] [address] PCP - General Family Medicine 05/20/24 Osei Malik, DO [address] [place] [address] Referring Physician Obstetrics and Gynecology 06/05/24 Flori Gil PA [address] [place] [address] Physician Biology Teacher Obstetrics and Gynecology 06/05/24 Fold Skiver Relationship Specialty Start Date End Date Jb Mandujano MD [address] [facility] 110 [place] [address] PCP - General Family Medicine 05/20/24 Osei Malik, DO [address] [place] [address] Referring Physician Obstetrics and Gynecology 06/05/24 Flori Gil PA [address] [place] [address] Physician Biology Teacher Obstetrics and Gynecology 06/05/24 Fold Skiver Relationship Specialty Start Date End Date Jb Mandujano MD [address] [facility] [address] [place] [address] PCP - General Family Medicine 05/20/24 Osei Malik DO [address] [place] [address] Referring Physician Obstetrics and Gynecology 06/05/24 Flori Gil PA [address] [place] [address] Physician Biology Teacher Obstetrics and Gynecology 06/05/24 Fold Skiver Relationship Specialty Start Date End Date Jb Mandujano MD 112 [facility] [address] [place] [address] PCP - General Family Medicine 05/20/24 Osei Malik DO [address] [place] [address] Referring Physician Obstetrics and Gynecology 06/05/24 Flori Gil PA [address] [place] [address] Physician Biology Teacher Obstetrics and Gynecology 06/05/24 Fold Skiver Relationship Specialty Start Date End Date Jb Mandujano MD 112 [facility] [address] [place] [address] PCP - General Family Medicine 05/20/24 Osei Malik DO [address] [place] [address] Referring Physician Obstetrics and Gynecology 06/05/24 Flori Gil PA [address] [place] [address] Physician Biology Teacher Obstetrics and Gynecology 06/05/24 Fold Skiver Relationship Specialty Start Date End Date Jb Mandujano MD [address] [facility] [address] [place] [address] PCP - General Family Medicine 05/20/24 Osei Malik DO [address] [facility] [place] [address] Referring Physician Obstetrics and Gynecology 06/05/24 Flori Gil PA [address] [place] [address] [place] [address] Physician Biology Teacher Obstetrics and Gynecology 06/05/24 Fold Skiver Relationship Specialty Start Date End Date Jb Mandujano MD [address] [facility] [address] [place] [address] PCP - General Family Medicine 05/20/24 Fold Skiver Relationship Specialty Start Date End Date Jb Mandujano MD [address] [facility] [address] [place] [address] PCP - General Family Medicine 05/20/24 Fold Skiver Relationship Specialty Start Date End Date Jb Mandujano MD [address] [facility] [address] [place] [address] PCP - General Family Medicine 05/20/24 Fold Skiver Relationship Specialty Start Date End Date Jb Mandujano MD [address] [place] [address] [place] [address] PCP - General Family Medicine 05/20/24 Fold Skiver Relationship Specialty Start Date End Date Jb Mandujano MD [address] [place] [address] [place] [address] PCP - General Family Medicine 05/20/24 Osei Malik, DO [address] [place] [address] Referring Physician Obstetrics and Gynecology 06/05/24 Flori Gil PA [address] [place] [address] Physician Biology Teacher Obstetrics and Gynecology 06/05/24 Fold Skiver Relationship Specialty Start Date End Date Jb Mandujano MD 112 [facility] 110 [place] [address] PCP - General Family Medicine 05/20/24 Osei Malik, [address] [place] [address] Referring Physician Obstetrics and Gynecology 06/05/24 Flori Gil PA [address] [place] [address] Physician Biology Teacher Obstetrics and Gynecology 06/05/24 Fold Skiver Relationship Specialty Start Date End Date Jb Mandujano MD [address] [place] [address] [place] [address] PCP - General Family Medicine 05/20/24 Osei Malik, DO [address] [place] [address] Referring Physician Obstetrics and Gynecology 06/05/24 Flori Gil PA [address] [place] [address] Physician Biology Teacher Obstetrics and Gynecology 06/05/24 Fold Skiver Relationship Specialty Start Date End Date Jb Mandujano MD [address] [facility] [address] [place] [address] PCP - General Family Medicine 05/20/24 Osei Malik DO [address] [place] [address] Referring Physician Obstetrics and Gynecology 06/05/24 Flori Gil PA [address] [place] [address] Physician Biology Teacher Obstetrics and Gynecology 06/05/24 Fold Skiver Relationship Specialty Start Date End Date Ander Boateng MD [address] [place] [address] PCP - General 11/30/17 Team Status: Inactive Member Role Status Dates Osei Malik DO Attending Provider Active Start : September 25, 2024 End: September 25, 2024 Fold Skiver Relationship Specialty Start Date End Date Jb Mandujano MD [address] [place] [address] [place] [address] PCP - General Family Medicine 05/20/24 Osei Malik DO [address] [place] [address] Referring Physician Obstetrics and Gynecology 06/05/24 Flori Gil PA [address] [place] [address] Physician Biology Teacher Obstetrics and Gynecology 06/05/24 Fold Skiver Relationship Specialty Start Date End Date Jb Mandujano MD [address] [facility] [address] [place] [address] PCP - General Family Medicine 05/20/24 Osei Malik DO [address] [place] [address] Referring Physician Obstetrics and Gynecology 06/05/24 Flori Gil PA [address] [place], [place] [address] Physician Biology Teacher Obstetrics and Gynecology 06/05/24 Fold Skiver Relationship Specialty Start Date End Date Ander Boateng MD [address] [place] [address] PCP - General 11/30/17 Fold Skiver Relationship Specialty Start Date End Date Jb Mandujano MD [address] [facility] [address] [place] [address] PCP - General Family Medicine 05/20/24 Osei Malik, [address] [place], [place] [address] Referring Physician Obstetrics and Gynecology 06/05/24 Flori Gil PA [address] [place], [place] [address] Physician Biology Teacher Obstetrics and Gynecology 06/05/24 Fold Skiver Relationship Specialty Start Date End Date Jb Mandujano MD [address] [facility] [address] [place] [address] PCP - General Family Medicine 05/20/24 Osei Malik DO [address] [place], [place] [address] Referring Physician Obstetrics and Gynecology 06/05/24 Flori Gil PA [address] [facility] [address] [place], [place] [id number] Physician Biology Teacher Obstetrics and Gynecology 06/05/24 Fold Skiver Relationship Specialty Start Date End Date Jb Mandujano MD [address] [id number] PCP - General Family Medicine 05/20/24 Osei Malik DO [address] [place], [place] [id number] Referring Physician Obstetrics and Gynecology 06/05/24 Flori Gil PA [address] [place] [place], [place] [id number] Physician Biology Teacher Obstetrics and Gynecology 06/05/24 Fold Skiver Relationship Specialty Start Date End Date Ander Boateng MD [address] [place], [place] [id number] PCP - General 11/30/17 Fold Skiver Relationship Specialty Start Date End Date Ander Boateng MD [address] [place] [id number] PCP - General 11/30/17 Fold Skiver Relationship Specialty Start Date End Date Ander Boateng MD [address] [place] [id number] PCP - General 11/30/17 Fold Skiver Relationship Specialty Start Date End Date Ander Boateng MD [address] [place] [address] [id number] PCP - General 11/30/17 Fold Skiver Relationship Specialty Start Date End Date Jb Mandujano MD 112 [facility] [address] [place] [address] PCP - General Family Medicine 05/20/24 Osei Malik DO [address] [place], [place] [id number] Referring Physician Obstetrics and Gynecology 06/05/24 Flori Gil PA [address] [place], [place] [phone] Physician Biology Teacher Obstetrics and Gynecology 06/05/24 Goals (unrecognized section [...] BE BASED ON THE PRIMARY CLINICAL RECORDS. [employer] [facility]. provides no warranty or guarantee of the accuracy or completeness of information in this document.
--- NOTE | 2024-11-26 16:52 | US_ITS ---
[address] [address] Patient Name: CJ MAI MRN: [id number] date: 2000 Sex: F Assigned Patient Location: [facility] Current Patient Location: Accession/Order Number: [id number] Exam Date: 11/26/2024 22:29 Report Date: 11/26/2024 22:31 At the request of: SHELBI WILLIAM DO Procedure: US OB BPP w non-stress Exam: BPP. Reason for exam: Dichorionic diamniotic twin . COMPARISON: BPP 11/19/2024. TECHNIQUE: Transabdominal imaging of the gravid uterus was obtained. FINDINGS: It Network Engineer reports the BPP 8 out of 8 for both fetus A as well as fetus B. heart rate for fetus A is 146 bpm. heart rate for fetus B is 145bpm. MVP for fetus A is 5.5 cm. MVP for fetus B is 7.4 cm. US/US OB BPP w non-stress Impression:BPP 8 out of 8 for both fetus A as well as fetus B. Impression dictated by: Parveen Wells Jr., D.O.11/26/2024 10:31 PM Dictation Location: [employer] Electronically authenticated by: [id number] Y Date: 11/26/2024 22:31
--- NOTE | 2024-11-26 16:53 | US_ITS ---
[address] [address] Patient Name: CJ MAI MRN: [id number] date: 2000 Sex: F Assigned Patient Location: [facility] Current Patient Location: Accession/Order Number: [id number] Exam Date: 11/26/2024 22:29 Report Date: 11/26/2024 22:31 At the request of: SHELBI WILLIAM DO Procedure: US OB BPP w non-stress Exam: BPP. Reason for exam: Dichorionic diamniotic twin . COMPARISON: BPP 11/19/2024. TECHNIQUE: Transabdominal imaging of the gravid uterus was obtained. FINDINGS: Chief Controller Tower reports the BPP 8 out of 8 for both fetus A as well as fetus B. heart rate for fetus A is 146 bpm. heart rate for fetus B is 145bpm. MVP for fetus A is 5.5 cm. MVP for fetus B is 7.4 cm. US/US OB BPP w non-stress Impression:BPP 8 out of 8 for both fetus A as well as fetus B. Impression dictated by: Parveen Wells Jr., D.O.11/26/2024 10:31 PM Dictation Location: [employer] Electronically authenticated by: [id number] Y Date: 11/26/2024 22:31
[2024-11-26 18:00] VITALS: BP 130/76; PULSE 94
== END 2024-11-26 18:38 | disposition home or self-care (01) ==
LOC: US 01:30 → FBC 16:50
PROVIDERS: PCP Family Medicine; Visit Provider Obstetrics & Gynecology
DX: O30.043 Twin pregnancy, dichorionic/diamniotic, third trimester (principal); Z3A.35 35 weeks gestation of pregnancy
CPT/HCPCS: 76818

== ENCOUNTER 2024-11-28 11:34 | Inpatient (IN) | payer OTHER, MEDICAID, SELFPAY ==
[2024-11-28] VITALS (36 sets, daily range): BP systolic 95–140; BP diastolic 59–105; PULSE 106–141; TEMP 35.9–36.8; O2SAT 92–100
[2024-11-28] MEDS: 0.9 % SODIUM CHLORIDE 1,000 ML 999 ML IV (12:09)
[2024-11-28] MEDS: ONDANSETRON PF 4 MG/2 ML VIAL IV ×2 (12:10→20:01)
[2024-11-28 12:43] LABS: Hematocrit 44.1 % (36.0-48.0); Hemoglobin 15.1 g/dL (12.0-16.0); Mean Corpuscular HGB Conc 34.2 g/dL (29.9-35.2); Mean Corpuscular Hemoglobin 28.9 pg (26.7-34.0); Mean Corpuscular Volume 84.3 fL (81.0-99.0); Mean Platelet Volume 11.2 fL (9.5-13.5); Platelet Count 162 10^3/uL (150-450); Red Blood Count 5.23 10^6/uL (4.20-5.40); Red Cell Distribution Width 13.2 % (11.0-15.0); White Blood Count 15.2 10^3/uL (4.0-11.0)
[2024-11-28 13:06] LABS: Lymphocytes Absolute Manual 0.91 10^3/uL (1.20-3.80); Monocytes Absolute Manual 0.76 10^3/uL (0.30-0.80); Segmented Neut Absolute Manual 13.52 10^3/uL (1.4-6.5)
[2024-11-28] MEDS: 0.9 % SODIUM CHLORIDE 1,000 ML 125 ML IV (13:14)
[2024-11-28] MEDS: CEFAZOLIN SODIUM/DEXTROSE,ISO 2 GM/50 ML PIGGYBACK IV ×2 (13:36→21:01)
[2024-11-28] MEDS: FAMOTIDINE/PF 20 MG/2 ML VIAL IV (13:36)
[2024-11-28] MEDS: METOCLOPRAMIDE HCL 10 MG/2 ML VIAL IVP (13:36)
[2024-11-28] MEDS: CITRIC ACID/SODIUM CITRATE 30 ML SOLUTION ORACIT SHOHL'S SOLN PO (13:37)
[2024-11-28 13:47] LABS: Bilirubin Urine NEGATIVE (NEGATIVE); Blood Urine TRACE-I (NEGATIVE); Clarity Urine CLEAR (CLEAR); Color Urine YELLOW (YELLOW); Glucose Urine UA NEGATIVE (NEGATIVE); Ketones Urine 40 mg/dL (NEGATIVE); Leukocyte Esterase Urine NEGATIVE (NEGATIVE); Nitrite Urine NEGATIVE (NEGATIVE); Protein Urine 30 mg/dL (NEG/TRACE); Specific Gravity Urine >=1.030 (1.005-1.025); Urobilinogen Urine 0.2 EU/dL (0.2-1.0)
[2024-11-28 14:02] LABS: Urine Microscopic Indicated YES
[2024-11-28] MEDS: LACTATED RINGER'S SOLUTION 1,000 ML 50 ML IV (14:28)
[2024-11-28 14:32] LABS: Bacteria Urine NONE SEEN #/HPF (NONE SEEN); Mucus Urine LARGE (NONE SEEN); Squamous Epithelial Cell Urine FEW #/LPF (NONE/RARE); WBC Urine NONE SEEN #/HPF (NONE SEEN)
[2024-11-28 14:33] LABS: Urine Culture Indicated NO
[2024-11-28 14:34] LABS: Amphetamine Screen Urine NEGATIVE (NEGATIVE); Barbiturates Screen Urine NEGATIVE (NEGATIVE); Benzodiazepines Screen Urine NEGATIVE (NEGATIVE); Buprenorphine Screen Urine NEGATIVE (NEGATIVE); Cannabinoid Screen Urine NEGATIVE (NEGATIVE); Cocaine Screen Urine NEGATIVE (NEGATIVE); Methadone Screen Urine NEGATIVE (NEGATIVE); Methamphetamines Screen Urine NEGATIVE (NEGATIVE); Opiate Screen Urine NEGATIVE (NEGATIVE); Oxycodone Screen Urine NEGATIVE (NEGATIVE); Phencyclidine Screen Urine NEGATIVE (NEGATIVE); Tricyclic Antidepressant Urine NEGATIVE (NEGATIVE)
--- NOTE | 2024-11-28 14:57 | PM.ONB ---
Brief Operative Note Date of procedure: 11/28/24 Pre-op diagnosis general: iup at 35 6/7wks, ptl, elevated bp Post-op diagnosis: same as pre-op Procedure: NAME OF PROCEDURE: [ section ] PROCEDURE: Patient was taken back to the Operating Room where she was given a spinal anesthesia with Duramorph without difficulty. She was prepped and draped in the normal sterile fashion. A Pfannenstiel skin incision was then made 2 cm above the symphysis pubis and carried down to underlying rectus fascia using a Bovie. The fascia was incised in the midline and extended laterally using Hernández scissors. Two Joan clamps were placed on the superior aspect of the fascia and dissected off the underlying rectus muscles. The same was performed on the inferior aspect as well. The muscles were then in the midline. Peritoneum was identified and entered bluntly. The peritoneum was then extended superiorly and inferiorly with good visualization of the bladder. The bladder blade was inserted. A low transverse incision was made on the patient's uterus and extended laterally digitally. The A was then delivered atraumatically after the bladder blade was removed in the cephalic position. The cord was clamped and cut. Cord blood was obtained. The was handed off to awaiting team. Twin b was delivered in the cephalic position with to umbilical clamps placed. The patient's placenta was spontaneously delivered. The uterus was then exteriorized. The uterus was cleared of all clots and debris. The bladder blade was reinserted. The patient's uterine incision was closed using #0 Vicryl in a running lock fashion. Excellent hemostasis was assured. The uterus was then returned to the patient's abdomen. The patient's abdomen was copiously irrigated using warm saline. Peritoneal gutters were cleared of all clots and debris. Again excellent hemostasis was assured. The patient's peritoneum was closed using 3-0 Vicryl in a running fashion. The patient's fascia was closed using #0 Vicryl in a running fashion. The patient's skin was closed using 4-0 Vicryl subcuticularly. The patient tolerated the procedure well. Sponge, lap, and needle counts were correct x2. The patient was taken to the Recovery Room in stable condition. Anesthesia: spinal Surgeon: Osei Malik Estimated blood loss (mL): 575 Pathology: other (placenta) Condition: stable Disposition: PACU Urinary Catheter Management Urinary Catheter Management Urethral: Cath placed during this visit: yes Urethral indwelling: No Insertion date: 11/28/24 Insertion time: 13:30
--- NOTE | 2024-11-28 15:00 | P.OBPRC_ITS ---
Procedure Pre-op/Post-op diagnoses: Pre-Op/Post-Op Diagnoses Operation Date: 11/28/24 13:30 <No data on this case meets the specified criteria> Procedure: Procedures Operation Date: 11/28/24 13:30 Actual Procedure Side Surgeon p twins with viable baby boys Not Applicable Osei Malik DO Land [employer] Party Chief: Marycarmen Saeed Estimated blood loss (mL): 575 Disposition: PACU Anesthesia type: Spinal
--- NOTE | 2024-11-28 15:39 | PC.NURSE ---
With fundus check,1- 50 cent size clot with moderate drainage
[2024-11-28] MEDS: OXYTOCIN/0.9 % SODIUM CHLORIDE 20 UNITS/1,000 ML PLAST..BAG 125 UNIT IV (15:51)
[2024-11-28] MEDS: KETOROLAC TROMETHAMINE 30 MG/ML VIAL IVP (17:05)
[2024-11-29] VITALS (8 sets, daily range): BP systolic 114–127; BP diastolic 65–73; PULSE 111–116; TEMP 36.9–37; O2SAT 98
[2024-11-29] MEDS: KETOROLAC TROMETHAMINE 30 MG/ML VIAL IVP ×4 (00:21→20:25)
[2024-11-29] MEDS: ENOXAPARIN SODIUM 40 MG/0.4 ML SYRINGE SUBQ (03:00)
[2024-11-29 07:25] LABS: Basophils Percent Auto 0.3 % (0.2-2.0); Eosinophils Absolute Auto 0.1 10^3/uL (0.0-0.7); Eosinophils Percent Auto 1.1 % (0.9-7.0); Hemoglobin 12.9 g/dL (12.0-16.0); Immature Granulocytes Abs Auto 0.09 10^3/uL (0.00-0.03); Lymphocytes Absolute Auto 0.7 10^3/uL (1.2-3.8); Lymphocytes Percent Auto 7.8 % (20.5-60.0); Mean Corpuscular HGB Conc 33.9 g/dL (29.9-35.2); Mean Corpuscular Hemoglobin 28.9 pg (26.7-34.0); Monocytes Absolute Auto 0.7 10^3/uL (0.3-0.8); Monocytes Percent Auto 6.9 % (1.7-12.0); Neutrophils Absolute Auto 7.8 10^3/uL (1.4-6.5); Neutrophils Percent Auto 82.9 % (43.0-75.0); Platelet Count 125 10^3/uL (150-450); Red Blood Count 4.47 10^6/uL (4.20-5.40); White Blood Count 9.4 10^3/uL (4.0-11.0)
[2024-11-29] MEDS: DOCUSATE SODIUM 100 MG CAPSULE PO ×2 (08:25→20:25)
--- NOTE | 2024-11-29 11:23 | P.OBPN_ITS ---
OB - PN: Subj Subjective Patient comments: no complaints and pain well controlled Exam Narrative Exam Narrative: PERFORMING ADL'S, EATING AND PASSING GAS, BREAST FEEDING, VOICING NO COMPLAINTS Constitutional Vital Signs, click to edit/add: Last Vital Signs Temp 98.5 F 11/29/24 03:26 Pulse 116 H 11/29/24 03:26 Resp 18 11/29/24 03:30 BP 114/73 11/29/24 03:26 Pulse Ox 98 11/28/24 17:10 O2 Del Method Room Air 11/29/24 03:30 Documenting provider has reviewed patient's vital signs: yes Common normals: no apparent distress, average body habitus, oriented x3, no limitations, healthy appearing, alert and well nourished HENWA Common normals: normocephalic Head and scalp: atraumatic Eye Common normals: PERRL Pupil: accommodation reflex normal Neck & C-Spine Common normals: full ROM and supple Respiratory Common normals: normal respiratory effort Auscultation: clear to auscultation bilaterally Cardio Common normals: regular rate and regular rhythm GI Common normals: Normal to inspection, nondistended, normoactive bowel sounds present, soft to palpation and non-tender Common normals: no CVA tenderness Back & Pelvis Common normals: no thoracic nor lumbar tenderness Extremity Common normals: normal to inspection, full ROM and no calf tenderness Neuro Common normals: oriented x3, CN's II-XII intact bilaterally, moves all extremities, no focal motor deficits and no sensory deficits noted Motor exam: strength 5/5 throughout Psych Common normals: mental status grossly normal, thought process normal, cooperative, affect normal and speech normal Results Labs Labs: Short CBC 11/28/24 11/29/24 Range/Units 12:08 07:10 WBC 15.2 H 9.4 (4.0-11.0) 10^3/uL Hgb 15.1 12.9 (12.0-16.0) g/dL Hct 44.1 38.0 (36.0-48.0) % Plt Count 162 125 L (150-450) 10^3/uL Urine 11/28/24 Range/Units 13:30 Urine Color Yellow (YELLOW) Urine Clarity Clear (CLEAR) Urine pH 6.0 (5.0-9.0) Ur Specific [place] >=1.030 A (1.005-1.025) Urine Protein 30 A (NEG/TRACE) mg/dL Urine Glucose (UA) Negative (NEGATIVE) mg/dL Urinary Catheter Management Urinary Catheter Management Urethral: Cath placed during this visit: yes, but has since been removed by the nurse Urethral indwelling: No Insertion date: 11/28/24 Insertion time: 13:30 Removal date: 11/29/24 Removal time: 05:30 OB - PN: A/P Assessment and Plan (1) delivery delivered: Assessment and Plan: TWIN BOYS, BREAST FEEDING, DOING WELL, AFEBRILE, VSS, PERFORMING ADL'S Plan - Plan: routine postop care Time Spent with Patient Time: Total time spent is greater than 50% in coordination of care (as documented) at patient's floor/unit and/or counseling patient: Total time spent with greater than 50% in coordination of care (as documented) at patient's floor/unit and/or counseling patient: less than 15 minutes
[2024-11-29] MEDS: ACETAMINOPHEN 500 MG TABLET 1000 MG PO (12:59)
[2024-11-30] VITALS (10 sets, daily range): BP systolic 108–125; BP diastolic 67–89; PULSE 100–108; TEMP 30.2–36.9; O2SAT 16–100
[2024-11-30] MEDS: ACETAMINOPHEN 500 MG TABLET 1000 MG PO ×2 (01:21→21:31)
[2024-11-30] MEDS: ENOXAPARIN SODIUM 40 MG/0.4 ML SYRINGE SUBQ (03:18)
--- NOTE | 2024-11-30 06:43 | PC.NURSE ---
0545-Mom pumping at this time. Parents request a pacifier for infants. Educated parents on nipple confusion and after discussion parents understand the risks and still request pacifier.
[2024-11-30] MEDS: DOCUSATE SODIUM 100 MG CAPSULE PO ×2 (08:45→21:31)
[2024-11-30] MEDS: KETOROLAC TROMETHAMINE 30 MG/ML VIAL IVP (08:45)
--- NOTE | 2024-11-30 10:47 | PM.OBPN ---
OB - PN: Subj Subjective Patient comments: no complaints and flatus present status: other (BABIES ARE NOT FEEDING WELL YET VIA BREAST ON OWN, REQUIRING NURSING SUPPORT) feeding status: exclusively Exam Narrative Exam Narrative: DISLIKES BED CONSTANTLY SLIPPING DOWN, TOLD PATIENT WE WILL REPLACE BED WITH ANOTHER THAT IS NOT A BIRTHING BED Constitutional Vital Signs, click to edit/add: Last Vital Signs Temp 97.5 F L 11/30/24 00:47 Pulse 100 H 11/30/24 00:47 Resp 16 11/30/24 00:47 BP 122/75 11/30/24 00:47 Pulse Ox 16 L 11/30/24 00:47 O2 Del Method Room Air 11/30/24 00:47 Documenting provider has reviewed patient's vital signs: yes Common normals: no apparent distress, average body habitus, oriented x3, alert and well nourished (STATES FINALLY HAS APPETITE TODAY) General appearance: cooperative HENMT Common normals: normocephalic Head and scalp: atraumatic Eye Common normals: PERRL Pupil: accommodation reflex normal Neck & C-Spine Common normals: full ROM and supple Chest Common normals: inspection of chest normal Respiratory Common normals: normal respiratory effort Auscultation: clear to auscultation bilaterally Cardio Common normals: regular rate and regular rhythm GI Common normals: Normal to inspection, nondistended, normoactive bowel sounds present, soft to palpation and non-tender Inspection: normal to inspection (INCISION DRY AND INTACT) Common normals: no CVA tenderness Back & Pelvis Common normals: no thoracic nor lumbar tenderness Extremity Common normals: normal to inspection, full ROM and no calf tenderness Neuro Common normals: oriented x3, CN's II-XII intact bilaterally, moves all extremities, no focal motor deficits and no sensory deficits noted Motor exam: strength 5/5 throughout Psych Common normals: mental status grossly normal, thought process normal, cooperative, affect normal, speech normal and activity/motor behavior normal Urinary Catheter Management Urinary Catheter Management Urethral: Cath placed during this visit: yes, but has since been removed by the nurse Urethral indwelling: No Insertion date: 11/28/24 Insertion time: 13:30 Removal date: 11/29/24 Removal time: 05:30 OB - PN: A/P Assessment and Plan (1) delivery delivered: Assessment and Plan: NEEDS TO GET OUT OF BED AND AMBULATE MORE. STATES ONLY TODAY DID SHE HAVE AN APPETITE. INCISION DRY AND INTACT AND MINIMAL DISCOMFORT BUT NEEDS TO DEMONSTRATE PERFORMANCE OF ADL'S MORE THAN SHE HAS BEEN (2) Twins, both liveborn: Assessment and Plan: EXCLUSIVELY BREAST FEEDING HOWEVER THEIR INTAKE IS NOT YET UP TO LEVEL APPROPRIATE FOR DISCHARGE. AWAIT PEDIATRICIANS INPUT. PATIENT REQUIRES A LOT OF NURSING SUPPORT Plan NOT READY FOR DISCHARGE DUE TO BREAST FEEDING ISSUES AND NEED TO AMBULATE MORE AND PERFORM ADL'S. Plan - day: 2 Time Spent with Patient Time: Total time spent is greater than 50% in coordination of care (as documented) at patient's floor/unit and/or counseling patient: Total time spent with greater than 50% in coordination of care (as documented) at patient's floor/unit and/or counseling patient: less than 15 minutes
[2024-11-30] MEDS: IBUPROFEN 400 MG TABLET 800 MG PO ×2 (15:35→23:18)
[2024-12-01] MEDS: ACETAMINOPHEN 500 MG TABLET 1000 MG PO (04:35)
[2024-12-01 08:17] VITALS: BP 124/78; TEMP 36.8
[2024-12-01] MEDS: ENOXAPARIN SODIUM 40 MG/0.4 ML SYRINGE SUBQ (08:21)
[2024-12-01] MEDS: DOCUSATE SODIUM 100 MG CAPSULE PO (08:21)
[2024-12-01] MEDS: IBUPROFEN 400 MG TABLET 800 MG PO (09:13)
--- NOTE | 2024-12-01 12:25 | P.OBPN_ITS ---
OB - PN: Subj Subjective Patient comments: tolerating diet and flatus present [place] status: doing well and well Exam Constitutional Vital Signs, click to edit/add: Last Vital Signs Temp 97.9 F 11/30/24 23:17 Pulse 108 H 11/30/24 16:50 Resp 16 12/01/24 08:24 BP 108/67 11/30/24 23:17 Pulse Ox 99 11/30/24 19:57 O2 Del Method Room Air 12/01/24 08:24 Documenting provider has reviewed patient's vital signs: yes Common normals: oriented x3, healthy appearing, alert and well nourished HENMT Common normals: normocephalic and head/scalp atraumatic Eye Common normals: PERRL Pupil: accommodation reflex normal Neck & C-Spine Common normals: full ROM and supple Chest Common normals: inspection of chest normal and inspection of breasts normal Respiratory Common normals: normal respiratory effort Auscultation: clear to auscultation bilaterally Cardio Common normals: regular rate and regular rhythm GI Common normals: Normal to inspection, nondistended, normoactive bowel sounds present, soft to palpation and non-tender Other: SURGICAL INCISION DRY AND INTACT WITHOUT REDNESS Common normals: no CVA tenderness Back & Pelvis Common normals: no thoracic nor lumbar tenderness Extremity Common normals: normal to inspection, full ROM and no calf tenderness Neuro Common normals: CN's II-XII intact bilaterally, moves all extremities, no focal motor deficits and no sensory deficits noted Psych Common normals: mental status grossly normal, thought process normal, cooperative and affect normal (AFFECT NORMAL, THAT SAID, SHE IS OVERWHELMED SEE BELOW) Other: PATIENT IS OVERWHELMED BY THIS LIFE ALTERING EVENT OF HAVING TWINS, LOSING HER GREAT GRANDMOTHER, LACK OF SLEEP, POST SURGICAL RECOVERY, 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 SPENT A LONG TIME EXPLAINING THE NORMALCY OF FEELING OVERWHELMED, THE FACT THAT A ONE TIME DOSE OF LORAZEPAM 0.5 MG QD IS SAFE IN BREAST FEEDING MOM, THE BENEFITS OF LORAZEPAM TO AID SLEEP AND PREVENT EMOTIONAL COLLAPSE WHICH HAPPENED LAST NIGHT AT 10 PM. I EXPLAINED THAT THE LITERATURE STATES CAN GIVE LORAZEPAM ONE TIME DOSE AND DAILY IN LOW DOSE IN BREAST FEEDING MOM. SHE AGREED TO TAKE IF NEEDED. LAST NIGHT WHEN NEEDED, SHE REFUSED BECAUSE FEARFUL WOULD AFFECT THE BREAST MILK. Urinary Catheter Management Urinary Catheter Management Urethral: Cath placed during this visit: yes, but has since been removed by the nurse Urethral indwelling: No Insertion date: 11/28/24 Insertion time: 13:30 Removal date: 11/29/24 Removal time: 05:30 OB - PN: A/P Assessment and Plan (1) delivery delivered: Assessment and Plan: INCISION DRY AND INTACT, MORE ACTIVE, PERFORMING ADL'S TO A GREATER DEGREE (2) Twins, both liveborn: Assessment and Plan: BOTH BOYS DOING WELL, BEING BREAST FED, MILK SUPPLY ADEQUATE, BABY A WILL BE REFERRED TO SANDER PORTABLE MACHINE FOR SMALL MURMUR (3) Psychosocial distress: Assessment and Plan: MOM HAD AN EMOTION BREAKDOWN LAST NIGHT. 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 SPENT A LONG TIME WITH PATIENT AFFIRMING HER FEELINGS APPROPRIATE AND THE FACT THAT A ONE TIME DOSE OF LORAZEPAM 0.5 MG TAB WILL NOT HARM THE BOYS VIA THE BREAST MILK PER THE LITERATURE. BECOMING OVERWHELMED AND PANICKING HOWEVER WILL AFFECT HER ABILITY TO BE MOM AND ALSO RECOVER FROM MAJOR SURGERY. SHE AGREED TO TAKE THE ONE TIME DOSE OF LORAZEPAM TODAY IF SHE FEELS THE ANXIETY BUILDING. WE ALSO DISCUSSED THE NEED TO UTILIZE HER MOTHER IN LAW WHO LIVES CLOSE BY TO HELP HER AND THE FOB ONCE HOME BECAUSE THE CARE OF TWINS IS 24 AND FAMILY SUPPORT IS NECESSARY. THE PATIENT WAS IN AGREEMENT Plan NOT READY FOR DISCHARGE FROM A MATERNAL POINT OF VIEW FOR AFOREMENTIONED REASONS. WILL REASSESS PSYCHOSOCIAL STATUS TOMORROW. Plan - day: 3 Time Spent with Patient Time: Total time spent is greater than 50% in coordination of care (as documented) at patient's floor/unit and/or counseling patient: Total time spent with greater than 50% in coordination of care (as documented) at patient's floor/unit and/or counseling patient: 25 - 35 minutes
--- NOTE | 2024-12-01 13:04 | PC.NURSE ---
Madyson is Twins Jesus Alberto and Florentino. Boys delivered at 35+6 via C/S Discussion on LPI expectations, and care. Parents have been shown numerous devises to assist with feeding LPI infants. Will now simply use [employer]otech shield as will allow baby to latch at the breast as well as receive extra milk needed. Madyson has milk coming in and is able to pump to provide supplement for babies. Plan is to spend 10 minutes trying to latch and feed babies. If not interested after 10 min justus dad will slow pace feed baby up to 30 ml of pumped milk. and try again at next feeding. Florentino is finishing feed at the breast with added 10ml supplement. not interested in more at this time. Jesus Alberto awake and more eaer to feed. He has done slightly better at feeds than his brother. Father sets syringe to 11ml for Jesus Alberto to have supplement. Parents feel this is a manageable routine for now.
--- NOTE | 2024-12-01 13:34 | RESP.RT ---
done per nursing
[2024-12-01 16:18] VITALS: BP 113/76; TEMP 36.7
[2024-12-01] MEDS: SIMETHICONE 80 MG TAB.CHEW PO (16:26)
[2024-12-01] MEDS: LOPERAMIDE HCL 2 MG CAPSULE PO (21:02)
[2024-12-01 22:19] VITALS: O2SAT 97
[2024-12-01 22:20] VITALS: O2SAT 98
[2024-12-01 23:15] VITALS: BP 119/70; TEMP 37
[2024-12-02] MEDS: LOPERAMIDE HCL 2 MG CAPSULE PO ×2 (03:40→11:19)
[2024-12-02 08:37] VITALS: BP 123/84; PULSE 105
[2024-12-02 08:38] VITALS: TEMP 37.3
[2024-12-02 08:40] VITALS: TEMP 36.7; TEMP 37.3
[2024-12-02] MEDS: ENOXAPARIN SODIUM 40 MG/0.4 ML SYRINGE SUBQ (08:41)
[2024-12-02 09:28] LABS: C. Difficile PCR NEGATIVE
--- NOTE | 2024-12-02 11:01 | PM.OBDS ---
DS: Providers Provider Date of admission: 11/28/24 13:15 Primary care physician: JB MANDUJANO Admitting clinician: Osei Malik Attending physician on discharge: Suzanne Moscoso Anticipated date of discharge: 12/02/24 DS: Diagnosis Discharge Diagnosis (1) delivery delivered: Assessment and plan: doing well from surgical viewpoint (2) Twins, both liveborn: Assessment and plan: twin A needs to go to [facility] for ECHO (3) Psychosocial distress: Assessment and plan: had 8 hours of sleep last night, doing much better (4) Diarrhea: Assessment and plan: new onset yesterday. stool cultures pending. started on loperamide which has greatly improved patient Qualifiers: Diarrhea type: unspecified type Qualified Code(s): R19.7 - Diarrhea, unspecified Plan discharge home after TWIN has ECHO at [facility] OB - DS: Summary Hospital Course Hospital Course: had issues with anxiety and stress, also diarrhea. both issues much improved Time spent discussing smoking cessation with patient: 3 to 10 minutes Peripartum Data - Procedures: Procedures Operation Date: 11/28/24 13:30 Actual Procedure Side Surgeon p twins with viable baby boys Not Applicable Osei Malik DO Peripartum Data - Vaginal Delivery Procedures: Procedures Operation Date: 11/28/24 13:30 Actual Procedure Side Surgeon p twins with viable baby boys Not Applicable Osei Malik DO Complications complications: none Delivery method: section Gender: male Discharge plan: home A Discharge plan: needs echo B Discharge plan: does not need echo Status at Discharge Cognitive/behavioral status at discharge: wnl Functional status at discharge: independent ambulation Time Spent with Patient Time attestation: Total time spent providing and/or coordinating discharge services: Time spent: less than 30 minutes Exam Constitutional Vital Signs, click to edit/add: Last Vital Signs Temp 98.0 F 12/02/24 08:40 Pulse 105 H 12/02/24 08:37 Resp 18 12/02/24 08:40 BP 123/84 12/02/24 08:37 Pulse Ox 98 12/01/24 22:20 O2 Del Method Room Air 12/02/24 08:56 Documenting provider has reviewed patient's vital signs: yes Common normals: no apparent distress, average body habitus, oriented x3, no limitations, healthy appearing, alert and well nourished HENMT Common normals: normocephalic and head/scalp atraumatic Eye Common normals: PERRL Pupil: accommodation reflex normal Neck & C-Spine Common normals: full ROM and supple Chest Common normals: inspection of chest normal Respiratory Common normals: normal respiratory effort Auscultation: clear to auscultation bilaterally Cardio Common normals: regular rate and regular rhythm GI Common normals: Normal to inspection, nondistended, normoactive bowel sounds present, soft to palpation and non-tender Common normals: no CVA tenderness Back & Pelvis Common normals: no thoracic nor lumbar tenderness Extremity Common normals: normal to inspection, full ROM and no calf tenderness Neuro Common normals: CN's II-XII intact bilaterally, moves all extremities, no focal motor deficits and no sensory deficits noted Motor exam: strength 5/5 throughout Psych Common normals: mental status grossly normal, thought process normal, cooperative, affect normal, speech normal and activity/motor behavior normal DS: Data Data Completed and Pending Labs on day of discharge: Labs from last 24 hours 12/01/24 21:40 C. difficile Toxin PCR Negative Discharge Plan Discharge Disposition: Home, Self-Care Condition: Good Assessment: ready for discharge from emotional and physical point of view, breast feeding going well, (is pumping) Plan of Treatment: discharge home, to schedule follow up Discharge Medications: Continued albuterol sulfate 90 mcg/actuation HFA aerosol inhaler 2 puff INHALATION Q4H PRN (Reason: shortness of breath or wheezing) Qvar RediHaler 80 mcg/actuation HFA aerosol breath activated 1 inh INHALATION Q12H omeprazole 40 mg capsule,delayed release(DR/EC) 20 mg PO DAILY M-Zak Plus 27 mg iron- 1 mg tablet 1 tab PO Q24H Activity: increase activity as tolerated Activity Detail: no sex six weeks, no driving 4 weeks, limit car travel to necessary only, walking only exercise for six weeks, no heavy lifting six weeks, may climb stairs, no bathtub 4 weeks, may shower Diet: regular diet Print Language: Estonian Patient Instructions: Acute Diarrhea (ED), Acute Diarrhea (GEN), (DC) Activity Restrictions/Additional Instructions: need to see Dr. Malik within the week for incision check, need to schedule post exam six weeks post delivery Forms: Delivery - Discharge, Portal Instructions Follow Up Appointments: as stated above [facility]
[2024-12-02] MEDS: ADACEL DIPH,PERTUSS(ACELL),TET VAC/PF 0.5 ML ADULT SYRINGE IM (11:19)
== END 2024-12-02 13:10 | disposition home or self-care (01) | DRG 788 ==
PROVIDERS: Obstetrics & Gynecology; Admitting Provider Obstetrics & Gynecology; PCP Family Medicine; Visit Provider Obstetrics & Gynecology
PROC: 10D00Z1 Extraction of Products of Conception, Low, Open Approach (ICD-10-PCS; CPT 59514; principal; 2024-11-28 13:30)
DX: O60.14X0 Preterm labor third trimester with preterm delivery third trimester, not applicable or unspecified (principal); O30.043 Twin pregnancy, dichorionic/diamniotic, third trimester; O99.52 Diseases of the respiratory system complicating childbirth; J45.909 Unspecified asthma, uncomplicated; O99.284 Endocrine, nutritional and metabolic diseases complicating childbirth; E28.2 Polycystic ovarian syndrome; O75.89 Other specified complications of labor and delivery; R03.0 Elevated blood-pressure reading, without diagnosis of hypertension; O99.345 Other mental disorders complicating the puerperium; F41.8 Other specified anxiety disorders; O90.89 Other complications of the puerperium, not elsewhere classified; R19.7 Diarrhea, unspecified; Z3A.35 35 weeks gestation of pregnancy; Z37.2 Twins, both liveborn; Z79.899 Other long term (current) drug therapy; Z88.8 Allergy status to other drugs, medicaments and biological substances; Z88.5 Allergy status to narcotic agent
CPT/HCPCS: 36415; 51702; 59025; 59050; 80307; 81001; 85007; 85025; 85027; 86850; 86900; 86901; 87045; 87046; 87427; 87493; 88307; 90715; 94667; 94668; J0690; J1650; J1885; J2274; J2371; J2405; J2590; J2765; J3490

== ENCOUNTER 2024-12-04 08:39 | Outpatient (OUT) | payer OTHER, MEDICAID, SELFPAY ==
[2024-12-04 10:35] VITALS: PULSE 82; TEMP 36.5
== END 2024-12-04 10:40 | disposition home or self-care (01) ==
PROVIDERS: PCP Family Medicine; Visit Provider Obstetrics & Gynecology
DX: Z39.2 Encounter for routine postpartum follow-up (principal)

== ENCOUNTER 2025-03-10 15:17 | Outpatient (OUT) | payer OTHER, BC, SELFPAY ==
[2025-03-10 16:14] LABS: Estimated Average Glucose 108 mg/dL; Glycohemoglobin A1C 5.4 % (4.5-6.2)
[2025-03-10 16:37] LABS: Free T4 1.03 ng/dL (0.76-1.46)
[2025-03-10 16:41] LABS: Thyroid Stimulating Hormone 0.382 uIU/mL (0.358-3.740)
[2025-03-12 04:07] LABS: Estradiol 6.1 pg/mL (.); Progesterone 0.1 ng/mL (.)
[2025-03-13 15:08] LABS: Estrone, Serum 56 pg/mL (27-231)
[2025-03-14 05:12] LABS: Testosterone 28 ng/dL (13-71)
[2025-03-16 09:08] LABS: DHEA, Serum 327 ng/dL (31-701)
== END 2025-03-10 15:18 | disposition home or self-care (01) ==
LOC: LAB 15:22
PROVIDERS: PCP Family Medicine; Visit Provider Obstetrics & Gynecology
DX: E28.2 Polycystic ovarian syndrome (principal); N94.10 Unspecified dyspareunia
CPT/HCPCS: 36415; 82626; 82627; 82670; 82679; 83036; 84144; 84402; 84403; 84439; 84443

== ENCOUNTER 2025-09-14 20:41 | Outpatient (REF) | payer BC, OTHER, SELFPAY ==
--- OUTSIDE RECORDS SUMMARY | 2021-04-22 05:30 | XMS_ITS | Continuity of Care Document ---
Author Organization [facility] Address [address] [place] [address] Phone Care Team Providers Care Juvenile Counselor Name Role Phone Ibis Smith Unavailable Unavail able Allergies, Adverse Reactions, Alerts Substance Reaction Status Criticality No Known Allergies Active No Inform ation Medications Medication Instructions Dosage Effective Dates (start - stop) Status Comments MELOXICAM 7.5 MG TABLET TAKE 1 TABLET BY MOUTH EVERY DAY - Active Procedures Procedure Date PREV VISIT, EST, AGE 18-39 OFFICE/OUTPATIENT VISIT, EST OFFICE/OUTPATIENT VISIT, [facility] Advance Directives Directive Yes / No Effective Date File Name No Information Encounters Encounter Description Practice Location Reason(s) For Visit Diagnoses Date Provider Providers Copied on Encounter PREV VISIT, EST, AGE 18-39 [facility], [address] [place] [address], [id number] , [place] tel: [phone] [facility] physical (chief complaint) Body mass index [BMI] 32.0-32.9, adultWell adult exam 1 Blas Baumann. [address] [place] [address], [id number], [place]. tel: [phone] [facility], [address] [place] [address], [id number] , [place] tel: [phone] [facility] No Information 1 Blas Baumann. [address] [place] [address], [id number], [place]. tel: [phone] [facility], [address] [place] [address], [id number] , [place] tel: [phone] [facility] Arthralgia of both kneesInflammation of joint of knee 1 Blas [employer]. [address] [place] [address], [id number], [place]. tel: [phone] OFFICE/OUTPA TIENT VISIT, [facility], [address] [place] [address], [id number] , [place] tel: [phone] [facility] joint pain and swelling (chief complaint) Inflammation of joint of kneeJoint inflammationArthralgi a of both kneesBody mass index [BMI]30.0-30.9, adult 1 Blas [facility] [employer]. [address] [place] [address], [id number], [place]. tel: [phone] OFFICE/OUTPA TIENT VISIT, [facility], [address] [place] [address], [id number] , [place] tel: [phone] [facility] knee pain (chief complaint) Body mass index [BMI]30.0-30.9, adultArthralgia of both knees 1 Blas [employer] DEVEL[employer]. [address] [place] [address], [id number], [place]. tel: [phone] Family History Family Member Type Diagnosis Age At Onset Brother Problem attention deficit hyperactiv ity disorder Sister Problem attention deficit hyperactiv ity disorder Brother Problem asthma Brother Problem hypertension Mother Problem alcoholism Brother Problem Obesity Mother Problem depression Payers Payer name Insurance type Covered alliance party ID Authorgarlanda tisapphire(s) [facility] [id number] Medicaid Wrap - [employer] [facility] [id number] Social History Type Description Quantity Date Captured Comments Alcohol Use Details Unknown Caffeine Use Details Unknown Tobacco Use Status Current non-smoker Smoking Status Never smoker Non-Smoking Tobacco Use Details : No Details Available : No Details Available [id number] SexFemaleSexual OrientationStraight or heterosexualGender [id number] Vital Signs Date / Time: Height Weight BMI Pulse Rate Blood Pressure Temperature Respiratory Rate Body Surface Area Head Circumference Head Circ. Percentile Wt./[place]. Percentile BMI percentile Pulse Ox Inhaled Ox 10:39 AM 63.98 in 86.636 kg (191.00 lbs) 32.8 1 kg/m eter (2) 81 /min 132/86 mm[Hg] 98.80 F 18 /min 96 97 % Chief Complaint And Reason For Visit From encounter dated '04/22/2021 10:30'. physical (chief complaint). Description: patient is here for a physical, she has the paperwork withher. she has no other complaints at this time. STACI Zhang.Noted above. Denies any issues or concerns. JSpencerAPRN-[employer]IVE COMM[employer]ING Reason For Referral Reason For Referral No Information Plan Of Treatment Date Type Action Status Goal Dietary management education , guidance, and counseling completed Goal Dietary management education , guidance, and counseling completed Goal Dietary management education , guidance, and counseling completed Goal Dietary management education , guidance, and counseling completed Referral Ordered: Rheumatology (related to Inflammation of joint of knee) [id number] Ordered: Referrals: Rheumatology. Consult [id number] Order: Lab OrderC-Reactive Protein, Quant ([id number]), Ordered on: [id number]-06-2021Future Order: Lab OrderANA ([id number]), Ordered on: [id number]-06-2021Future Order: Lab OrderRheumatoid Arthritis Factor ([id number]), Ordered on: [id number]-06-2021Future Order: Lab OrderCBC With Differential/Platelet ([id number]), Ordered on: Ordered History Of Present Illness Encounter Date Complaint History Of Prese nt Illness physical patient is here for a physical, she has the paperwork with her. she has no other complaints at this time. STACI Zhang.Noted above. Denies any issues or concerns. DOMIpenalexanderAPRCarlota-EXECUTIVE COMM[employer]ITY PL[employer]ING joint pain and swelling Patient here for follow up after being on Mobic for several weeks for her bilateral knee pain and inflammation. She states it did help slightly with the swelling but not the pain. The inflammation comes and goes and when she is in a warm shower her joints get red and inflammed. We discussed lab work at the last visit and today I will order her labs to get done and depending on those results we will then send her to rheumatology. Patient verbalized understanding. I will call with results. Mauro GEORGESN-[employer]IVE COMM[employer]ITY [employer]ING knee pain Location: knee. Additional information: Complains of bilateral knee pain she saw someone last week until she could get in to see me and she was put on prednisone 20 mg for 5 days. She does not do well on prednisone and stopped it on sun due to side effects. 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 Functional Status Date Functional Assessmen t No Information Instructions Date Instruction Additional Infor lauren Dietary management e ducation, guidance, and counseling Related to Body mass index [BMI] 32.0-32.9, adult Giving encouragement to exercise Related to Body mass index [BMI] 32.0-32.9, adult Giving encouragement to exercise Related to Body mass index [BMI]30.0-30.9, adult Dietary management e ducation, guidance, and counseling Related to Body mass index [BMI]30.0-30.9, adult 1. Take new medicati on as prescribed.2. Journal when the pain or swelling occurs and what you are doing during that time.3.Call the office if no improvement. Related to Arthralgia of both knees Giving encouragement to exercise Related to Body mass index [BMI]30.0-30.9, adult Dietary management e ducation, guidance, and counseling Related to Body mass index [BMI]30.0-30.9, adult Giving encouragement to exercise Related to Body mass index [BMI]30.0-30.9, adult Dietary management e ducation, guidance, and counseling Related to Body mass index [BMI]30.0-30.9, adult Assessments Type Assessment Date assessment Body mass index [BMI] 32.0-32.9, adult assessment Well adult exam impression We have reviewed you r health risk assessment and made recommendations for your personalized prevention plan. Your goals for you prevention plan are to receive the recommended preventative services. We will work with you to achieve these goals with the following plan: Following a healthful diet (low saturated fats, high fiber, low sodium, low processed foods. )remaining active goal (goal 150 mins/week) Maintaining a healthful weight (BMI<25 or 10% weight loss) and medication understanding and compliance. Please contact the office with any questions or concerns. Mental Status Date Cognitive Assessment Orientation - Brea ed to time, place, person, situation. Patient Care Teams Name Effective Dates (start - stop) Status Members No Information
--- OUTSIDE RECORDS SUMMARY | 2025-09-14 10:30 | XMS_ITS | Encounter Summary ---
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 Name Role Phone Neha Angeles MD Primary Care Provider [phone] Osei Malik DO Unavailable Flori Gil Unavailable Reason for Visit * ReasonCommentsWell Women Visit Encounter Details DateTypeDepartmentCare Team (Latest Contact Info)Vvsupwwubrv89/22/2025 10:30 AM ESTOffice Visit [facility] [address] [place] [address] Osei Malik DO [address] [place], [place] [id number] Well woman exam with routine gynecological exam; PCOS (polycystic ovarian syndrome); control counseling Social History Tobacco UseTypesPacks/DayYears UsedDateSmoking Tobacco: NeverSmokeless Tobacco: NeverAlcohol UseStandard Drinks/WeekCommentsNot Currently2 (1 standard drink = 0.6 oz pure alcohol)socially, Caffeine intake: [id number] Health LiteracyAnswer Date RecordedHow often do you need to have someone help you when you read instructions, pamphlets, or other written material from your doctor or pharmacy? Never04/06/2025Humiliation, Afraid, Rape, and Kick questionnaireAnswerDate RecordedWithin the last year, have you been afraid of your partner or ex-partner?No04/06/2025Within the last year, have you been humiliated or emotionally abused in other ways by your partner or ex-partner?No04/06/2025 Within the last year, have you been kicked, hit, slapped, or otherwise physically hurt by your partner or ex-partner?No04/06/2025Within the last year, have you been raped or forced to have any kind of sexual activity by your part ner or ex-partner?No04/06/2025Social Connection and Isolation PanelAnswerDate RecordedIn a typical week, how many times do you talk on the phone with family, friends, or neighbors?More than three times a week04/06/2025How often do you get together with friends or relatives?More than three times a week04/06/2025How often do you attend druze or yarsanism services?More than 4 times per year 04/06/2025Do you belong to any clubs or organizations such as druze groups, unions, fraternal or athletic groups, or school groups?No04/06/2025How often do you attend meetings of the clubs or organizations you belong to?Never04/06/2025 Are you , , , , never , or living with a partner?Klbynpx4004/06/2025UDIT-CAnswerDate RecordedQ1: How often do you have a drink containing alcohol?Never04/06/2025Q2: How many drinks containing alcohol do you have on a typical day when you are drinking?Patient does not drink 04/06/2025Q3: How often do you have six or more drinks on one occasion?Never 04/06/2025Overall Financial Resource Strain (CARDIA)AnswerDate RecordedHow hard is it for you to pay for the very basics like food, housing, medical care, and heating?Not very hard04/06/2025PHQ-2AnswerDate RecordedPatient Health Questionnaire-2 [facility]thi757[facility] [place] of Occupational Health - Occupational Stress QuestionnaireAnswerDate RecordedDo you feel stress - tense, restless, nervous, or anxious, or unable to sleep at night because yourmind is troubled all the time - these days?Only a jqtpqz8804/06/2025Exercise Vital Sign AnswerDate RecordedOn average, how many days per week do you engage in moderate to strenuous exercise (like a brisk walk)?0 days04/06/2025On average, how many minutes do you engage in exercise at this level?0 min04/06/2025Hunger Vital Sign AnswerDate RecordedWithin the past 12 months, you worried that your food would run out before you got the money to buymore.Never true04/06/2025Within the past 12 months, the food you bought just didn't last and you didn't have money to get more.Never true04/06/2025PRAPARE - TransportationAnswerDate RecordedIn the past 12 months, has lack of transportation kept you from medical appointments or from getting medications?No04/06/2025In the past 12 months, has lack of transportation kept you from meetings, work, or from getting things needed for daily living?No04/06/2025Housing Stability Vital SignAnswerDate RecordedIn the last 12 months, was there a time when you were not able to pay the mortgage or rent on time?No02/25/2024In the last 12 months, how many places have you lived?2 02/25/2024In the last 12 months, was there a time when you did not have a steady place to sleep or slept in [facility] (including now)?No02/25/2024Housing Stability Vital SignAnswerDate RecordedIn the last 12 months, was there a time when you were not able to pay the mortgage or rent on time?No04/06/2025Number of Times Moved in the Last YearNot on file04/06/2025t any time in the past 12 months, were you homeless or living in a nursing home (including now)?No04/06/2025 CommentsNoSex and Gender InformationValueDate RecordedSex Assigned at BxvbaVxnsmy37/20/2025 11:49 AM ESTLegal BinDtagah84/15/2023 6:52 PM EDTGender TihicxurLkkduh57/20/2025 11:49 AM ESTSexual OrientationNot on filedocumented as of this encounter Last Filed Vital Signs Vital SignReadingTime TakenCommentsBlood Qhufprfp887/7009/14/2025 10:34 AM EST Pulse--Temperature--Respiratory Rate--Oxygen Saturation--Inhaled Oxygen Concentration--Qshdyq27.4 kg (186 lb)09/14/2025 10:34 AM ESTHeight--Body Mass Index30.9508/25/2025 8:22 AM ESTdocumented in this encounter Progress Notes * Camilla Bar, BUSINESS CONSULTANT - 09/14/2025 10:30 AM EST Reason for Appointment: Patient ID: Madyson Lemus is a 24 y.o. female who presents for Well Women Visit Patient presents today for Annual Exam. 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 of both knees 02/17/2023 Sciatica 02/17/2023 Abnormal tilt table test 08/13/2023 Acid reflux 02/26/2024 Asthma (HCC) 02/26/2024 POTS (postural orthostatic tachycardia syndrome) 08/13/2023 Chest pain, atypical 08/13/2023 Chondromalacia 02/26/2024 Dysmenorrhea 02/26/2024 Dyspnea 08/13/2023 Excessive and frequent menstruation 02/26/2024 Mild intermittent asthma (HCC) 08/13/2023 MMT (medial meniscus tear) 02/26/2024 Palpitation 08/13/2023 PCOS (polycystic ovarian syndrome) 02/26/2024 Personal history of COVID-19 08/13/2023 PVC (premature ventricular contraction) 08/13/2023 Syncope 08/13/2023 De Quervain's disease (tenosynovitis) 02/26/2024 Tension headache 03/25/2024 Gestational diabetes mellitus (GDM), antepartum ([facility]) 10/02/2024 29 weeks gestation of ([facility]) 10/02/2024 Third trimester ([facility]) 10/02/2024 Well adult exam 04/07/2025 It band syndrome, unspecified laterality 04/07/2025 Screening for lipid disorders 04/07/2025 Resolved Ambulatory Problems Diagnosis Date Noted Thumb pain, right 02/26/2024 Influenza A 08/27/2024 Past Medical History: Diagnosis Date GERD (gastroesophageal reflux disease) Polycystic ovary syndrome 12/18/23 HISTORY PAST MEDICAL HISTORY SOCIAL HISTORY Past Medical History: Diagnosis Date Asthma (HCC) GERD (gastroesophageal reflux disease) Influenza A 08/27/2024 Polycystic ovary syndrome 12/18/23 POTS (postural orthostatic tachycardia syndrome) Social History Tobacco Use Smoking status: Never Smokeless tobacco: Never Vaping Use Vaping status: Never Used Substance Use Topics Alcohol use: Not Currently Alcohol/week: 2.0 standard drinks of alcohol Comment: socially, Caffeine intake: none Drug use: Never FAMILY HISTORY Family History Problem Relation Name Age of Onset Scoliosis Sister Ne Diabetes Maternal Grandmother Hypertension Maternal Grandfather Johnathan Hypertension Mother's Sister Vanessa Lung cancer Maternal Great-Grandmother Other (bladder cancer) Maternal Great-Grandmother Scoliosis Brother Jacobo (twin) Asthma Brother Jacobo SURGICAL HISTORY Past Surgical History: Procedure Laterality Date SECTION, LOW TRANSVERSE 11/28/2024 CT ANGIOGRAM CHEST 10/27/2024 CT ANGIOGRAM CHEST HAND SURGERY Bilateral Wart removal bilateral hands KNEE ARTHROSCOPY W/ PLICA EXCISION Right 08/05/2021 Dr. Armas TONSILECTOMY, ADENOIDECTOMY, BILATERAL MYRINGOTOMY AND TUBES TONSILLECTOMY WISDOM TOOTH EXTRACTION 02/2020 REVIEW OF SYSTEMS Review of Systems: Review of Systems Constitutional: Negative. HENT: Negative. Eyes: Negative. Respiratory: Negative. Cardiovascular: Negative. Gastrointestinal: Negative. Genitourinary: Negative. Musculoskeletal: Negative. Skin: Negative. Neurological: Negative. All other systems reviewed and are negative. Hematological: Negative. Endocrine: Negative. Allergic/Immunologic: Negative. OBJECTIVE Objective: Physical Exam Constitutional: Appearance: Normal appearance. She is well-developed. Genitourinary: Vulva normal. Breasts: Breasts are soft. Right: Normal. Left: Normal. Cardiovascular: Rate and Rhythm: Normal rate and [...] nursing note reviewed. Exam conducted with a outer diameter technician present. Vitals: Estimated body mass index is 30.95 kg/m?? as calculated from the following: Height as of 08/25/25: 5' 5 . Weight as of this encounter: 186 lb. BP: 110/70 No LMP recorded. ASSESSMENT & PLAN ICD-10-CM 1. Well woman exam with routine gynecological exam Z01.419 Pap Smear Vit-Fe Fumarate-FA ( Vitamins) 28-0.8 MG tablet 2. PCOS (polycystic ovarian syndrome) E28.2 Vit-Fe Fumarate-FA ( Vitamins) 28-0.8 MG tablet No orders of the defined types were placed in this encounter. Annual Wellness Exam: Patient presents today for routine annual exam. Patient states she has complaints of being tired and decreased libido. Patients vitals were reviewed and within normal limits. Growth and development is noted to be appropriate for age. Menstrual history is noted to be regular with no concerns reported. No mental health concerns was expressed. Pap Smear: Speculum was inserted into the vagina and pap was obtained without difficulty. No HPV testing was performed per age guideline. Patient was advised that pap results could take anywhere from 7 to 10 days to receive and our office will reach out to the patient with those once we have them. Patient canalso view results via [employer]. I reinforced importance of condom use for STI prevention. Patient declined cultures to be performed with today's visit. Breast Exam: Upon examination, clinical breast exam was noted to be normal but pt is twins. Patient was counseled on breast self-awareness, including the importance of knowing what is normal for herown breasts and promptly reporting any changes such as new lumps, skin dimpling, nipple discharge, or pain. Screening mammogram recommended annually beginning at age 40 or earlier if risk factors arepresent. Discussed signs and symptoms of breast cancer and when to seek medical attention. Answeredall patient questions. Contraceptive Counseling (if applicable): Patient is currently using no as a form of contraceptive. Patient does desire control at this time. We will send norethindrone to patients pharmacy. Follow Up: Patient is to return to our office in one year for annual exam unless needed otherwise. Documented by Camilla Bar LPN on behalf of: Osei Malik DO documented in this encounter Plan of Treatment DateTypeDepartmentCare Team (Latest Contact Info)Roicwdtwceq92/12/2026 8:00 AM ESTOffice Visit [facility] [address] [facility] [place] [phone] Jose Armando Armas DO [address] [place] [address] 09/27/2026 8:30 AM ESTProcedure Visit [facility] [address] [place] [address] Osei Malik DO [address] [place] [address] NameTypePriorityAssociated DiagnosesOrder SchedulePap SmearPathology and CytologyRoutine Well woman exam with routine gynecological exam Ordered: 09/14/2025documented as of this encounter Visit Diagnoses Diagnosis Well woman exam with routine gynecological exam Routine gynecological examination PCOS (polycystic ovarian syndrome) Polycystic ovaries control counseling documented in this encounter Care Teams Team MemberRelationshipSpecialtyStart DateEnd Date Neha Angeles MD [address] [facility] [address] [place] [address] PCP - GeneralFamily Medicine05/20/24 Osei Malik DO [address] [place] [address] Referring PhysicianObstetrics and Gynecology06/05/24 Flori Gil PA [address] [place] [address] Physician AssistantObstetrics and Gynecology06/05/24documented as of this encounter
--- OUTSIDE RECORDS SUMMARY | 2025-09-14 20:45 | XMS_ITS | Clinical Summary ---
Author Organization [facility] Address [address] [place] [address] Care Team Providers Care [employer] Teacher Name Role Phone Neha Angeles MD Primary Care Provider [phone] Osei Malik DO Unavailable Flori Gil Unavailable Allergies Active AllergyReactionsCriticalityNoted DateCommentsChlorhexidineItching 02/20/20233460Glwimknycmcgcxz32/02/2022 nausea MidodrineGI mhlxwifr64/20/2023Oxycodone-Hltfsmboogegb44/04/2024 no narcotics, GI upset Lcbuhyovsgtk07/02/2022 Gi upset SvowzcsejkZmbqjifiv84/27/2023 Medications MedicationSigDispense QuantityRefillsLast FilledStart DateEnd DateStatus Vit-Fe Fumarate-FA ( Vitamins) 28-0.8 MG tablet Indications:Well woman exam with routine gynecological exam,PCOS (polycystic ovarian syndrome)Take 1 tablet by mouth Daily 30 tablet ctive norethindrone (Micronor) 0.35 MG tablet Indications: control counselingTake 1 tablet (0.35 mg) by mouth Daily 28 tablet 111ctive Inositol-D Chiro-Inositol (OVASITOL PO) Take by mouth in the morning and before bedtime.09/14/2025Discontinued albuterol HFA 90 mcg/act inhaler Indications:Mild intermittent asthma with acute exacerbation (HCC)Inhale 2 puffs every 4 (four) hours if needed for wheezing 18 g Discontinued Beclomethasone Diprop HFA (Qvar RediHaler) 80 MCG/ACT inhaler Indications:Mild persistent asthma without complication (HCC)Inhale 1 Inhalation in the morning and 1 Inhalation before bedtime. Rinse mouth with water after use to reduce aftertaste and incidence of candidiasis. Do not swallow.. 10.6 g Discontinued estradiol (Estrace) 0.1 MG/GM vaginal cream Indications:Dyspareunia, kledgr3j vaginally at bedtime 2 times weekly 42.5 g 307/Discontinued Vit-Fe Fumarate-FA (M- Plus) 27-1 MG tablet Indications:Patient desires pregnancyTake 1 tablet by mouth Daily 30 tablet 1108Discontinued(Reorder) Vit-Fe Fumarate-FA (M- Plus) 27-1 MG tablet Take 1 tablet by mouth Daily 30 tablet 111Discontinued MV-Min-Fe Fum-FA-DHA ( 1 PO) Take 1 tablet by mouth Daily09/14/2025Discontinued Active Problems ProblemNoted DateDiagnosed DateWell adult exam04/07/2025 Assessment & Plan (04/07/2025 4:42 PM EDT): Modest Alcohol consumption No Tobacco Seat Belt use Exercise Regularly No Text Drive Social Accountability It band syndrome, unspecified lxnxhgpqwo89/15/2025 Assessment & Plan (04/07/2025 4:57 PM EDT): Stretching Screening for lipid kpyxxfrxr70/15/2025Gestational diabetes mellitus (GDM), antepartum ([facility]) weeks gestation of ([facility]) 10/02/2024Third trimester ([facility])10/02/2024Tension headache 03/25/2024 Assessment & Plan (03/25/2024 9:00 AM EDT): Massage Topical Ramana Taylor with Lidocaine DoTerra Deep Blue Acid fkuvby3302/26/20249710Esuetx04/04/4101Syupbsrfxibbsj99/04/2024ysmenorrhea 02/26/2024Excessive and frequent kzydydpekshq88/04/2024MMT (medial meniscus tear)02/26/2024COS (polycystic ovarian syndrome)02/26/2024 Assessment & Plan (02/26/2024 11:21 AM EDT): Does Clomid Sees Dr. Watson Consider Metformin De Quervain's disease (tenosynovitis)02/26/2024 Assessment & Plan (02/26/2024 11:17 AM EDT): Thumb Spica Topical Voltaren Abnormal tilt table test08/13/2023OTS (postural orthostatic tachycardia syndrome)08/13/2023 Assessment & Plan (03/25/2024 8:59 AM EDT): Usually weekly occurrence sometimes 3 times a week When episode occurs, focus and attention can be affected Has had syncopal episodes and will take 24-48 hours to recover Would only miss about 3-4 days a month due to condition Assessment & Plan (02/26/2024 11:22 AM EDT): Increase fluids salt Chest pain, bvvdurbt43/20/6187Xmjqvhf88/20/2023Mild intermittent asthma 08/13/20234135Lotvtkbntvi64/20/2023ersonal history of COVID-19110/13/2022VC (premature ventricular contraction)08/13/20239523Tmjpuyw52/20/2023hondromalacia of right sdprtkt2602/17/2023atellofemoral disorder of both knees02/17/2023Sciatica 02/17/2023 Resolved Problems ProblemNoted DateDiagnosed DateResolved DateInfluenza A1Thumb pain, right Assessment & Plan (02/26/2024 11:20 AM EDT): As above Encounters DateTypeDepartmentCare KdfiDkxfozglipj14/22/2025 10:30 AM ESTOffice Visit [facility] [address] [place] [address] Osei Malik, Well woman exam with routine gynecological exam; PCOS (polycystic ovarian syndrome); control evnbxaqpzn49/22/2025amboo flowsheet [facility] [address] [place] [address] Osei Malik, 08/26/2025Telephone [facility] [address] [place] [phone] Bárbara Chandra RN postop /02/2025 8:15 AM ESTOffice Visit [facility] [address] [place] [phone] Jose Armando Armas, DO Chondromalacia of right patella (Primary Dx)08/25/2025amboo flowsheet [facility] [address] [place] [phone] Jose Armando Armas DO 08/25/20253816Pnfncy36/21/2025 7:30 AM ESTAncillary Procedure [facility] [address] [place] [phone] Chondromalacia of right patella; Patellofemoral disorders, right knee08/14/20258672Dbsjqx36/20/5320Efinia24/10/2025 Abstract [facility] [address] [place] [address] Neha Angeles MD 07/29/2025Telephone [facility] [address] [place] [phone] Bárbara Chandra RN ins qzuxcrwo40/30/2025 8:15 AM EDTOffice Visit [facility] [address] [place] [phone] Jose Armando Armas DO Chondromalacia of right patella (Primary Dx)07/23/2025amboo flowsheet [facility] [address] [place] [address] Jose Armando Armas, 07/23/20258196Olhzui35/02/2025Telephone [facility] [address] [facility] [facility] [place] [address] Sandy Ramires MA from Last 3 Months Immunizations ImmunizationAdministration DatesNext DueDTaP, Ecrhcretenk17/05/2007,02/06/2003, 07/02/2002,05/19/2002,03/05/2002HPV, Yznpbvrcwzzj03/03/2014,04/20/2014HPV, Swggnmnpupe30/13/2015Hep B, Adolescent or Orssmmcfm11/14/2002HiB, unspecified 02/06/2003,07/02/2002Hib / Hep B005/19/2002,03/05/2002IPV12/27/2006,07/02/2002, 05/19/2002,03/05/2002Influenza, Qwsgbhdvljm15/12/2023Influenza, injectable, quadrivalent, preservative free07/05/2023Influenza, seasonal, injectable, preservative free07/24/2024MMR02/06/2003MMRV04Meningococcal ACWY, rgravsmudlf49/20/2018,04/20/2014Meningococcal XUZ4J6712/11/2017,04/20/2014 Pneumococcal Conjugate PCV ,05/19/2002Polio, Ggyliahzjqy04/05/2007, 07/02/2002,05/19/2002,03/05/2002Tdap2024,03/25/2024,04/20/2014Varicella 02/06/2003 Family History Medical HistoryRelationNameCommentsScoliosisBrother 2Kristian (twin)Asthma Brother 3KristianHypertensionMaternal GrandfatherRobinDiabetesMaternal GrandmotherLung cancerMaternal Great-Grandmotherbladder cancerMaternal Great-GrandmotherHypertensionMother's SisterAngieScoliosisSisterGraceRelation NameStatusCommentsBrother 8Hlkhln9Izcsysu 2Kristian (twin)AliveBrother 3Kristian AliveFatherAliveMaternal GrandfatherRobinMaternal GrandmotherMaternal Great-GrandmotherMotherAliveMother's SisterAngieSisterGraceAlivex2 Social History Tobacco UseTypesPacks/DayYears UsedDateSmoking Tobacco: NeverSmokeless Tobacco: Never Tobacco Cessation:Counseling Given: Not Answered Alcohol UseStandard Drinks/WeekCommentsNot Currently2 (1 standard drink = 0.6 oz pure alcohol)socially, Caffeine intake: [id number] Health LiteracyAnswerDate RecordedHow often do you need to have [...] times a week04/06/2025How often do you attend jain or samaritan services?More than 4 times per year 04/06/2025Do you belong to any clubs or organizations such as jain groups, unions, fraternal or athletic groups, or school groups?No04/06/2025How often do you attend meetings of the clubs or organizations you belong to?Never04/06/2025 Are you , , , , never , or living with a partner?Yazegyo9204/06/2025UDIT-CAnswerDate RecordedQ1: How often do you have a [...] and heating?Not very hard04/06/2025PHQ-2AnswerDate RecordedPatient Health Questionnaire-2 Wuine557Finse[facility] [place] of Occupational Health - Occupational Stress QuestionnaireAnswerDate RecordedDo you feel stress - tense, restless, nervous, or anxious, or unable to sleep at night because yourmind is troubled all the time - these days?Only a skxxyf3504/06/2025Exercise Vital Sign AnswerDate RecordedOn average, how many [...] steady place to sleep or slept in [place] (including now)?No02/25/2024Housing Stability Vital SignAnswerDate RecordedIn the last 12 months, was there a time when you were not able to pay the mortgage or rent on time?No04/06/2025Number of Times Moved in the Last YearNot on file04/06/2025t any time in the past 12 months, were you homeless or living in a fdc (including now)?No04/06/2025 CommentsNoSex and Gender InformationValueDate RecordedSex Assigned at YkplrYdmbjl85/20/2025 11:49 AM ESTLegal LnaVlztve95/15/2023 6:52 PM EDTGender HgwyoudfRciddb59/20/2025 11:49 AM ESTSexual OrientationNot on file Last Filed Vital Signs Vital SignReadingTime TakenCommentsBlood Rneyojtm267/7009/14/2025 10:34 AM EST Cfxbw577004/07/2025 4:35 PM ZXHVrmrtdjegjn02.9 ??C (98.4 ??F)12/16/2024 10:43 AM EDTRespiratory Wpzd938512/16/2024 10:43 AM EDTOxygen Cqrzydotye85%04/07/2025 4:35 PM EDTInhaled Oxygen Concentration--Vtecox78.4 kg (186 lb)09/14/2025 10:34 AM VQQZhbasq433.1 cm (5' 5 )08/25/2025 8:22 AM ESTBody Mass Index30.9508/25/2025 8:22 AM EST Plan of Treatment DateTypeDepartmentCare Team (Latest Contact Info)Brznliessha03/12/2026 8:00 AM ESTOffice Visit [facility] [address] [place] [address] PawelJose Armando Rhonda, DO [address] [place] [address] 09/27/2026 8:30 AM ESTProcedure Visit [facility] [address] [facility] [place] [address] Osei Malik DO [address] [facility] [place] [address] Health MaintenanceDue DateLast DoneCommentsPneumococcal Vaccine: Pediatrics (0 to 5 Years) and At-Risk Patients (6 to 64 Years) (1 of 2 - PCV)2020 07/02/2002, 05/19/2002Influenza Vaccine (#1), 07/05/2023, 07/05/2023 Procedures Procedure NamePriorityDate/TimeAssociated DiagnosisCommentsMR KNEE RIGHT WO IV XJRPPSOHWdsakhu54/21/2025 8:12 AM EST Chondromalacia of right patella Patellofemoral disorders, right knee from Last 3 Months Results * MR knee right wo IV contrast (08/14/2025 8:12 AM EST)Anatomical Region LateralityModalityLower Extremities, KneeRightMagnetic ResonanceSpecimen (Source)Anatomical Location / LateralityCollection Method / VolumeCollection TimeReceived Time08/14/2025 10:46 AM EST Impressions 08/14/2025 10:53 AM EST Intact menisci and ligaments. 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 Cartilage otherwise grossly unremarkable. ELECTRONICALLY SIGNED BY: Titi Muñoz MD Narrative 08/14/2025 10:53 AM EST EXAMINATION/TECHNIQUE: MR KNEE RIGHT WO IV CONTRAST HISTORY: ?? Right knee pain. Patellofemoral pain. Chondromalacia. History of chondroplasty and excision of plica. Currently with medial and lateral pain. COMPARISON: Radiographs 06/03/2025. MRI 12/07/2022 and MRI 07/06/2021. RESULT: Some limitations from motion. Repeat sequences performed. MENISCI: Medial Meniscus: Appears intact. Lateral Meniscus: Appears intact. LIGAMENTS: ACL, PCL, MCL, and LCL complex intact. CARTILAGE: Possible small area of partial-thickness fissuring involving the central trochlea. Otherwise cartilage within normal limits, within limits of motion. TENDONS: Distal quadriceps intact. Patellar tendon intact. Popliteus intact. BONES AND MARROW: ??No evidence of fracture or bone marrow replacing process. MUSCLES: ??Muscle bulk and signal intensity are normal. JOINT FLUID AND SYNOVIUM: ??No joint effusion. No synovitis. No Vogel's cyst. OTHER: Patella isaiah. Normal trochlear morphology. No significant edema signal in the infrapatellar fat pad. Tibial tuberosity to trochlear groove (TT-TG) distance measures 9 mm. Medial patellofemoralretinaculum/ligament appears intact. Procedure Note Titi Muñoz MD - 08/14/2025 EXAMINATION/TECHNIQUE: MR KNEE RIGHT WO IV CONTRAST HISTORY: Right knee pain. Patellofemoral pain. Chondromalacia. Historyof chondroplasty and excision of plica. Currently with medial and lateralpain. COMPARISON: Radiographs 06/03/2025. MRI 12/07/2022 and MRI 07/06/2021. RESULT: Some limitations from motion. Repeat sequences performed. MENISCI: Medial Meniscus: Appears intact. Lateral Meniscus: Appears intact. LIGAMENTS: ACL, PCL, MCL, and LCL complex intact. CARTILAGE: Possible small area of partial-thickness fissuring involvingthe central trochlea. Otherwise cartilage within normal limits, withinlimits of motion. TENDONS: Distal quadriceps intact. Patellar tendon intact. Popliteusintact. BONES AND MARROW: No evidence of fracture or bone marrow replacingprocess. MUSCLES: Muscle bulk and signal intensity are normal. JOINT FLUID AND SYNOVIUM: No joint effusion. No synovitis. No Vogel'scyst. OTHER: Patella isaiah. Normal trochlear morphology. No significant edemasignal in the infrapatellar fat pad. Tibial tuberosity to trochlear groove(TT-TG) distance measures 9 mm. Medial patellofemoral retinaculum/ligamentappears intact. IMPRESSION: Intact menisci and ligaments. 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 Cartilage otherwisegrossly unremarkable. ELECTRONICALLY SIGNED BY: Titi Muñoz MD Authorizing ProviderResult TypeResult StatusJose Armando Armas DOIMG MRI PROCEDURES Final Result from Last 3 Months Insurance * Guarantor: Madyson Lemus TypeRelation to PatientDate of BirthPhone Billing AddressPersonal/YfsmreKnah70/11/[address] [address] Care Teams Team MemberRelationshipSpecialtyStart DateEnd Date Neha Angeles MD [address] [address] PCP - GeneralFamily Medicine05/20/24 Osei Malik DO [address] [place] [address] Referring PhysicianObstetrics and Gynecology06/05/24 Flori Gil PA [address] [place] [address] Physician AssistantObstetrics and Gynecology06/05/24
--- OUTSIDE RECORDS SUMMARY | 2025-09-14 20:45 | XMS_ITS | Encounter Summary ---
Author Organization [facility] Address [address] [facility] [place] [address] Care Team Providers Care Street Vendor Name Role Phone Neha Angeles MD Primary Care Provider [phone] Osei Malik DO Unavailable Flori Gil Unavailable Encounter Details DateTypeDepartmentCare Team (Latest Contact Info)Cleuqyxkeft18/22/2025amboo flowsheet [facility] [address] [facility] [place] [address] Osei Malik DO [address] [facility] [address] [place], [facility] Social History Tobacco UseTypesPacks/DayYears UsedDateSmoking Tobacco: NeverSmokeless Tobacco: NeverAlcohol UseStandard Drinks/WeekCommentsNot Currently2 (1 standard drink = 0.6 oz pure alcohol)socially, Caffeine intake: [id number] Health LiteracyAnswer Date RecordedHow often do you [...] times a week04/06/2025How often do you attend alevism or adventism services?More than 4 times per year 04/06/2025Do you belong to any clubs or organizations such as alevism groups, unions, fraternal or athletic groups, or school groups?No04/06/2025How often do you attend meetings of the clubs or organizations you belong to?Never04/06/2025 Are you , , , , never , or living with a partner?Fordcek2604/06/2025UDIT-CAnswerDate RecordedQ1: How often do you have a [...] and heating?Not very hard04/06/2025PHQ-2AnswerDate RecordedPatient Health Questionnaire-2 Lmflh071Finhuntsman mental health institute [place] of Occupational Health - Occupational Stress QuestionnaireAnswerDate RecordedDo you feel stress - tense, restless, nervous, or anxious, or unable to sleep at night because yourmind is troubled all the time - these days?Only a nmjrhu2304/06/2025Exercise Vital Sign AnswerDate RecordedOn average, how many [...] steady place to sleep or slept in [facility] (including now)?No02/25/2024Housing Stability Vital SignAnswerDate RecordedIn the last 12 months, was there a time when you were not able to pay the mortgage or rent on time?No04/06/2025Number of Times Moved in the Last YearNot on file04/06/2025t any time in the past 12 months, were you homeless or living in a [place] (including now)?No04/06/2025 CommentsNoSex and Gender InformationValueDate RecordedSex Assigned at YxvxzNhgchg69/20/2025 11:49 AM ESTLegal ZwsPcgije63/15/2023 6:52 PM EDTGender IyrkmpucQsvdtu70/20/2025 11:49 AM ESTSexual OrientationNot on filedocumented as of this encounter Plan of Treatment DateTypeDepartmentCare Team (Latest Contact Info)Emwkndbbxat71/12/2026 8:00 AM ESTOffice Visit [facility] [address] [place] [phone] Jose Armando Armas DO [address] [place] [address] 09/27/2026 8:30 AM ESTProcedure Visit [facility] [address] [facility] [place] [address] Osei Malik DO [address] [place], [place] [phone] documented as of this encounter Visit Diagnoses Not on filedocumented in this encounter Care Teams Team MemberRelationshipSpecialtyStart DateEnd Date Neha Angeles MD [address] [facility] [address] [place] [address] PCP - GeneralFamily Medicine05/20/24 Osei Malik DO [address] [place] [address] Referring PhysicianObstetrics and Gynecology06/05/24 Flori Gil PA [address] [place] [address] Physician AssistantObstetrics and Gynecology06/05/24documented as of this encounter
--- OUTSIDE RECORDS SUMMARY | 2025-09-14 20:45 | XMS_ITS | Clinical Summary ---
Author Organization [facility] tem Address [id number] [address] [place] [address] Care Team Providers Care School Guidance Counselor Name Role Phone Asuncion Boateng MD Primary Care Provider [phone] Allergies Active AllergyReactionsCriticalityNoted DateCommentsChlorhexidineItching 07/07/20244014UiwnxgczshvbqhkGraevz67/14/2024MidodrineGI Lofzjkcj36/14/2024 Oxycodone-AcetaminophenGI Rmnecemxioz68/14/2024rednisoloneGI Disturbance 07/07/20247616ZrprtfdxmdGnopozwtx73/14/2024 Medications MedicationSigDispense QuantityRefillsLast FilledStart DateEnd DateStatus no115/iron/folic acid ( 19 ORAL) Take by mouth.Active Active Problems No known active problems Family History Medical HistoryRelationNameCommentsGDMMaternal AuntHypertensionMaternal Aunt HypertensionMaternal GrandfatherDiabetesMaternal GrandmotherRelationNameStatus CommentsBrothertwinAliveMaternal AuntMaternal GrandfatherMaternal Grandmother GdywavNaeneCvgviwx7Zatxj Social History Tobacco UseTypesPacks/DayYears UsedDateSmoking Tobacco: NeverSmokeless Tobacco: Never Tobacco Cessation:Counseling Given: Not Answered Alcohol UseStandard Drinks/WeekCommentsNot Currently0 (1 standard drink = 0.6 oz pure alcohol)ChildcareAnswerDate LzrkxsjpUgmkretwrQkjjknn47/10/2019Employment AnswerDate TeiughajZurnflspouFrhnjvz25/10/2019Hunger ScreeningAnswerDate RecordedWithin the past 12 months we worried whether our food would run out before we got money to buy more.Never True08/13/2024Within the past 12 months the food we bought just didn't last and we didn't have money to get more.Never True4Purpose - LifeAnswerDate RecordedPurpose and direction in life Yiajykr77/10/2021CommentsNoSex and Gender InformationValueDate Recorded Sex Assigned at BirthNot on fileLegal RocGvchzu95/04/2015 1:02 PM EDTGender IdentityNot on fileSexual OrientationNot on file Last Filed Vital Signs Vital SignReadingTime TakenCommentsBlood Pressure--Pulse--Temperature-- Respiratory Rate--Oxygen Saturation--Inhaled Oxygen Concentration--Ceeuqd338.6 kg (221 lb 12.8 oz)08/13/2024 9:22 AM NFYYupsif689.1 cm (5' 5 )08/13/2024 9:22 AM ESTBody Mass Index36.9108/13/2024 9:22 AM EST Plan of Treatment Health MaintenanceDue DateLast DoneCommentsChlamydia Dewozpijc57/11/2002 Depression Izalzagji06/11/2014COVID-19 Vaccine ( season)2025 01/14/2021, 12/24/2020Influenza Awentpk42/, 07/05/2023dult BMI Fdworuuco28/Tobacco Owpbxmfly44/4Pap Smear TaP,Tdap and Td Vaccines (8 - Td or Tdap)03/25/2034 03/25/2024, 04/20/2014, 12/27/2006, Additional history exists Medical Devices Not on file Insurance Care Teams Team MemberRelationshipSpecialtyStart DateEnd Date Asuncion Boateng MD [address] [place] [address] [facility]11/30/17
--- OUTSIDE RECORDS SUMMARY | 2025-09-14 20:45 | XMS_ITS | Clinical Summary ---
Author Organization [facility] Address [facility] [place] [address] Care Team Providers Care Operations Specialist Name Role Phone Unavailable Primary Care Provider Unavailabl e Allergies Active AllergyReactionsCriticalityNoted DateCommentsOpioids - Morphine Analogues Other: See Treymqhr65/04/2022 Fainting/Urinary Incontinence PrednisoneOther: See Twlognfl96/04/2022 Fainting/Urinary incontinence Medications MedicationSigDispense QuantityRefillsLast FilledStart DateEnd DateStatus albuterol HFA (PROVENTIL HFA, VENTOLIN HFA) 90 mcg/actuation inhaler Inhale 2 Puffs as instructed every 6 hours as needed.06/01/2022ctive Active Problems No known active problems Encounters DateTypeDepartmentCare ThzvEexihueugra2025Travelfrom Last 3 Months Social History Tobacco UseTypesPacks/DayYears UsedDateSmoking Tobacco: NeverPassive Smoke Exposure: NeverSmokeless Tobacco: Never Tobacco Cessation:Counseling Given: No PHQ-2AnswerDate RecordedPHQ-2 xmpou77310/26/2024rea Deprivation IndexAnswerDate RecordedNational Score (1-100), lower number is lower vein1912State Score (1-10), lower number is lower nwag623ata from: https://www.neighborhoodatlas.medicine.[facility].edu/. Last address used for pxqhagym[address] [facility] regnantCommentsUnknownSex and Gender InformationValueDate RecordedSex Assigned at KxahkXcturh56/06/2024 7:21 PM EST Legal MdmTawypi52/18/2021 9:48 AM EDTGender XeiibvjxRiwixi20/06/2024 7:21 PM EST Sexual OrientationNot on file Last Filed Vital Signs Vital SignReadingTime TakenCommentsBlood Gtkgkerq955/7911/30/2023 9:33 AM EST Hrney738311/30/2023 9:33 AM ESTTemperature--Respiratory Yysi863612/28/2022 3:00 PM EDTOxygen Gsdjoilqvf77%11/30/2023 9:33 AM ESTInhaled Oxygen Concentration-- Nwqhsl16 kg (205 lb)11/30/2023 9:33 AM RYTJkrgfw383.1 cm (5' 5 )11/30/2023 9:33 AM ESTBody Mass Index34.11011/30/2023 9:33 AM EST Plan of Treatment Health MaintenanceDue DateLast DoneCommentsPeds To Adult Transition Initial Olnqokohbp04/11/2014Peds To Adult Transition Annual Jhkigzetlb64/11/2016 Meningococcal B Vaccine (1 of 2 - Standard)2017Anxiety Oovniqgcp43/11/2020 Chlamydia Screening (18-24)12/03/2019Depression Uvrxzgfag93/11/2020GC (Gonorrhea) Screening (18-24)12/03/2019HIV Tezkschxm34/11/2020Cervical Cancer Qpszhtsdd06/11/2023Covid-19 Vaccine (3 - 2024- season)504/, 12/24/2020Influenza Vaccine (#1)510/, 3DTaP,Tdap,Td Vaccine (9 - Td or Tdap)5012/02/2024, 03/25/2024, 04/20/2014, Additional history existsHepatitis B BlsqkqeOyplablsu51/26/2002, 03/05/2002, 2001HPV AkyevjkPqrodkwtz89/13/2015, 06/26/2014, 04/20/2014Hepatitis C ScreeningCompleted 01/25/2022 Procedures Procedure NamePriorityDate/TimeAssociated DiagnosisCommentsHEPATITIS C ANTIBODY IA WITH YTZLYFFSTSOVErhjtcl32/04/2022 9:13 AM EDT Pain and swelling of knee, right from Last 3 Months or Most Recently Relevant to Health Maintenance Results * HEP C AB IA W/CONF SCRN (01/25/2022 9:13 AM EDT)ComponentValueRef RangeTest MethodAnalysis TimePerformed AtPathologist SignatureHep C Antibody IANegative Cuqsroaf33/06/2022 2:41 PM EDTCCINCINNATI SHRINERS HOSPITAL LABComment:The result suggests no evidence of active infection with Hepatitis C virus. Should recent infectionbe suspected, repeat testing may be considered 4-6 weeks after this draw.Specimen (Source)Anatomical Location / LateralityCollection Method / VolumeCollection TimeReceived TimeBloodBLOOD SPECIMEN / UnknownVenipuncture / Jrszmlq7901/25/2022 9:13 AM EDT01/25/2022 9:13 AM EDT Narrative Authorizing ProviderResult TypeResult StatusSuluis Mittal MDLABORATORYFinal ResultPerforming OrganizationAddressCity/State/ZIP CodePhone Number [facility] [address] [phone], from Last 3 Months or Most Recently Relevant to Health Maintenance Insurance * Guarantor: Cj Mai TypeRelation to PatientDate of BirthPhone Billing AddressPersonal/FmlzskJcei48/11/[address] [address]
[2025-09-16 16:08] LABS: Age Gdln ACOG Testing Note (.); IGP, rfx Aptima HPV ASCU Note (.)
== END 2025-09-14 20:42 | disposition home or self-care (01) ==
LOC: LAB 20:41
PROVIDERS: PCP Family Medicine; Visit Provider Obstetrics & Gynecology
DX: Z01.419 Encounter for gynecological examination (general) (routine) without abnormal findings (principal)
CPT/HCPCS: 88175